=== PATIENT | female | born 1940 | race Hispanic/Latino ===

== ENCOUNTER 2021-04-19 14:57 | Inpatient (IN) | payer MEDICARE, SELFPAY ==
[2021-04-19] VITALS (16 sets, daily range): BP systolic 103–219; BP diastolic 57–110; PULSE 59–76; RESP 16–20; TEMP 36.1–36.8; O2SAT 98–99; BMI 28.4; BMI 26.8
--- NOTE | 2021-04-19 14:59 | RAD_ITS ---
STUDY: X-RAY CHEST REASON FOR EXAM: Female, 80 years old. Neuro deficit, acute, stroke suspected TECHNIQUE: Single AP portable view of the chest. COMPARISON: None. FINDINGS: The lungs are clear and expanded. There is no demonstrated pleural abnormality. Normal size heart. Normal mediastinum and glenn. Normal visualized pulmonary arteries. Normal visualized aortic arch and descending thoracic aorta. Normal visualized thoracic spine. Normal visualized ribs, clavicles, and shoulders. There is no demonstrated abnormality of the visualized soft tissue structures of the upper abdomen. RAD/Chest 1 View IMPRESSION: No evidence of acute cardiopulmonary process. Electronically Signed: Jesus Rivas DO at 18:24 EDT , Service support ,
--- NOTE | 2021-04-19 14:59 | CT_ITS ---
We are attempting to reach an attending provider to discuss findings. An addendum with communication details will be sent when the communication is complete. STUDY: CT HEAD STROKE PROTOCOL W/O CONTRAST INJECTION REASON FOR EXAM: Female, 80 years old. Neuro deficit, acute, stroke suspected RADIATION DOSAGE (If Supplied By Facility): CTDIvol = ( ) mGy, DLP = ( ) mGycm TECHNIQUE: Transaxial CT imaging of the brain was performed without administration of intravenous contrast material. Individualized dose optimization techniques were used for this CT. COMPARISON: No relevant priors. FINDINGS: The ventricular system and cerebral sulci are within normal limits. There is no dense MCA sign. There is minimal calcification in the left basal ganglia. There is no evidence of subdural, epidural or intraparenchymal is[place] hemorrhage noted. The skull base and cranial vault are intact. But if clinically stroke is suspected I do recommend diffusion MRI for further assessment CT/STROKE Brain/Head without Cont IMPRESSION: Negative unenhanced CT scan of the brain. If stroke is suspected diffusion MRI is needed. Electronically Signed: Kate Baltazar, at 15:18 EDT Tel , Service support ,
--- NOTE | 2021-04-19 14:59 | EKG12_ITS ---
Test Reason : STROKE Blood Pressure : / mmHG Vent. Rate : 066 BPM Atrial Rate : 066 BPM P-R Int : 194 ms QRS Dur : 086 ms QT Int : 448 ms P-R-T Axes : 052 -06 111 degrees QTc Int : 469 ms Normal sinus rhythm Left ventricular hypertrophy with repolarization abnormality Abnormal ECG Confirmed by BERNARD HELMS, RAKESH ([id number]), proposal editor DAINA VASQUEZ ([id number]) on 04/21/2021 12:46:26 PM Referred By: CHANDLER Confirmed By:RAKESH WAGNER MD
--- NOTE | 2021-04-19 15:00 | CT_ITS ---
We are attempting to reach an attending provider to discuss findings. An addendum with communication details will be sent when the communication is complete. STUDY: CTA HEAD AND NECK WITH CONTRAST REASON FOR EXAM: Female, 80 years old. Neuro deficit, acute, stroke suspected RADIATION DOSAGE (If Supplied By Facility): CTDIvol = ( 22.14 ) mGy, DLP = ( 664.54 ) mGycm TECHNIQUE: CT angiography was performed with a multi-detector CT scanner. Data acquisition was obtained from the skull base through the vertex following intravenous administration of IV 100mL [id number]-[id number]. MIP images were reconstructed from the axial data set. Post-processing of the angiographic images was performed, with multiplanar reformation and 3D reconstruction. Individualized dose optimization techniques were used for this CT. COMPARISON: No relevant priors. FINDINGS: Normal bilateral petrous carotid arteries. Normal right cavernous carotid artery with a normal supraclinoid bifurcation. Normal left cavernous carotid artery with a normal supraclinoid bifurcation. Normal right A1 segments of the anterior cerebral artery. Normal left A1 segments of the anterior cerebral artery. Normal intact anterior communicating artery (ACOM). Normal bilateral A2 segments of the anterior cerebral arteries. Normal right M1 and M2 segments of the middle cerebral arteries, with a normal M1 bifurcation. Normal left M1 and M2 segments of the middle cerebral arteries, with a normal M1 bifurcation. Normal right posterior communicating artery (PCOM). Normal left posterior communicating artery (PCOM). Normal bilateral vertebral arteries. Normal basilar artery with a normal basilar bifurcation. The visualized bilateral superior cerebellar (SCA) arteries are normal. Normal bilateral P1, P2 and visualized P3 segments of the posterior cerebral arteries. There is no demonstrated aneurysm of the false pass of [place]. There is no demonstrated abnormality of the visualized brain. AORTIC ARCH: Normal visualized aortic arch. Normal origins of the brachiocephalic, left common carotid, and left subclavian arteries. RIGHT CAROTID ARTERIES: Normal right common carotid artery (CCA). Normal right common carotid bulb. Normal origin of the right internal carotid (ICA) artery without a hemodynamically significant stenosis. Normal visualized cervical portion of the right internal carotid artery. Normal origin of the right external carotid artery (ECA). LEFT CAROTID ARTERIES: Normal left common carotid artery (CCA). Normal left common carotid bulb. Normal origin of the left internal carotid (ICA) artery without a hemodynamically significant stenosis. Normal visualized cervical portion of the left internal carotid artery. Normal origin of the left external carotid artery (ECA). VERTEBRAL ARTERIES: Normal bilateral vertebral arteries. CT/STROKE CTA Head AND Neck W/Con IMPRESSION: Normal CTA Head and neck with contrast. Electronically Signed: Kate Baltazar, at 15:27 EDT Tel , Service support ,
--- NOTE | 2021-04-19 15:01 | ED.VIS.STROK ---
HPI History of Present Illness Chief Complaint: Neuro S/Sx Detail of Chief Complaint: Slurred speech Informant: patient and family Narrative Narrative: Patient presents to the emergency department after EMS was contacted by the patient's daughter. Patient was last known well yesterday evening around 9:30 PM. Patient has unintelligible words. She cannot tell me when her symptom onset was. Patient recently moved to the area from [place]. Patient has history of diabetes and hypertension. She denies significant headache. She denies falls. Per family member she is not on blood thinners. Prior similar symptoms: No PFSH PFSH Social History Smoking Status: Unknown if ever smoked ROS ROS ED Constitutional Constitutional ED: Reports systems reviewed and no addt'l complaints, except as documented; Denies body ache(s), change in weight or chills Eyes Eyes: Denies acute decrease in peripheral vision, change in vision, double vision or loss of vision ENT ENT ED: Reports none; Denies ear pain, lip swelling, loss taste/smell, neck pain, otalgia or sore throat Cardiovascular Cardiovascular: Reports none; Denies abdominal pain, chest pain with activity, leg edema, lightheadedness, palpitations, rapid heart rate or syncope Respiratory/Chest Respiratory/Chest: Reports none; Denies change in mental status, dry cough, dyspnea, hemoptysis, shortness of breath at rest or shortness of breath with exertion Gastrointestinal Gastrointestinal: Reports none; Denies abdominal pain, change in stool character, diarrhea, hematemesis, hematochezia, melena, rectal bleeding or vomiting Genitourinary Genitourinary ED: Reports none; Denies abdominal discomfort, anuria, dysuria, genital pain or polyuria Musculoskeletal Musculoskeletal: Reports none; Denies arthralgias, back pain, difficulty walking, extremity pain, muscle weakness or myalgias Integumentary Reports none; Denies abscess or rash Neurologic Neurologic: Reports none and other Details: Slurred speech ; Denies abnormal gait, confusion, focal weakness, frequent falls, headache(s), loss of vision, numbness, paresthesias, radicular pain, vertigo or weakness Psychiatric Psychiatric: Reports systems reviewed and no addt'l complaints, except as documented and none; Denies behavioral changes, confusion, difficulty concentrating, hallucinations, suicidal ideation, tactile hallucinations or visual hallucinations Endocrine Endocrinology: Denies none, cold intolerance, excessive sweating, fatigue or heat intolerance Hematologic/Lymphatic Hematologic/Lymphatic: Reports none; Denies anemia, easy bleeding or easy bruising Allergic/Immunologic Allergic/Immunologic ED: Denies as per HPI, none, lip swelling, mouth swelling, throat swelling, tongue swelling or hives EXAM Physical Exam Const Vital Signs: 04/19/21 14:59 04/19/21 15:00 04/19/21 15:18 Temperature 98.2 F 98 F Temperature Source Oral Oral Pulse Rate 76 67 Respiratory Rate 19 H 20 H Blood Pressure 219/85 H 149/94 H Blood Pressure Mean 129 112 Pulse Ox 99 99 Oxygen Delivery Method Room Air Room Air Room Air 04/19/21 15:29 04/19/21 15:30 Temperature Temperature Source Pulse Rate 68 69 Respiratory Rate 18 20 H Blood Pressure 212/107 H 198/81 H Blood Pressure Mean 142 120 Pulse Ox 99 99 Oxygen Delivery Method Room Air Room Air Positive well nourished and well developed General Appearance ED: well developed and NAD HEENT Reports TM's clear and moist mucous membranes normocephalic and atraumatic; Negative for trauma or tenderness Tympanic Membrane ED: Yes TM's clear Eyes PERRL and EOMs intact bilaterally General Eye ED: Negative for pale conjunctiva or scleral icterus Neck no lymphadenopathy, supple and no JVD General: Negative for tenderness Chest Wall inspection of chest normal and palpation of chest normal Chest: Negative for tenderness Resp normal respiratory effort and clear to auscultation bilaterally Effort and Inspection: Negative for respiratory distress or pain with movement Auscultation: Negative for rhonchi, wheezes or diminished lung sounds Cardio regular rate, regular rhythm, S1 normal heart sound, S2 normal heart sound and no murmurs Peripheral Pulses: pulses 2+ throughout GI normal to inspection, nondistended, normoactive bowel sounds, soft to palpation, non-tender, non-distended and no masses Back/Spine no CVA tenderness and no thoracic nor lumbar tenderness Extremity normal to inspection General Extremety ED: Negative for edema General Extremity: Negative for edema Neuro oriented x3, CN's II-XII intact bilaterally, no sensory deficits noted and gait normal Neuro Narrative: Patient has an NIH stroke scale of 5 as she has an expressive aphasia and dysarthria. No facial droop or focal weakness otherwise noted. Sensorium / Orientation: awake, alert, oriented to person, oriented to place and oriented to time Motor Exam: strength 5/5 throughout and strength abnormal Psych mental status grossly normal Skin no rashes or lesions noted and no wounds STROKE Vital Signs/Narrative: Vital Signs Temp Pulse Resp BP Pulse Ox 04/19/21 15:30 69 20 H 198/81 H 99 04/19/21 15:29 68 18 212/107 H 99 04/19/21 15:18 98 F 67 20 H 149/94 H 99 04/19/21 15:00 98.2 F 76 19 H 219/85 H 99 MDM MDM MDM Narrative Medical decision making narrative: Patient symptom onset unclear therefore after discussion with neurologist it was felt patient was not a TPA candidate. Patient continues to have some dysarthria and expressive aphasia however at times seems to be improving. Case discussed with hospitalist will evaluate patient for admission. Lab Data Attestation: I reviewed the patient's lab results. Labs: Laboratory Results - last 24 hr 04/19/21 04/19/21 04/19/21 15:10 15:10 15:10 WBC 7.1 RBC 4.48 Hgb 12.8 Hct 40.1 MCV 89.5 MCH 28.6 MCHC 31.9 L RDW Std Deviation 41.1 RDW Coeff of Col[place] 12.6 Plt Count 220 MPV 12.5 H Immature Gran % (Auto) 0.300 Neut % (Auto) 58.8 Lymph % (Auto) 29.5 [place]cock % (Auto) 8.5 Eos % (Auto) 2.5 Baso % (Auto) 0.4 Absolute Neuts (auto) 4.2 Absolute Lymphs (auto) 2.09 Nucleated RBC % 0 PT 12.3 INR 1.0 APTT 21.9 L Sodium 136 Potassium 4.1 Chloride 102 Carbon Dioxide 29.0 Anion Gap 5 BUN 16 Creatinine 1.55 H Estim Creat Clear Calc 25.00 Est GFR (MDRD) Af Amer 41 L Est GFR (MDRD) Non-Af 34 L BUN/Creatinine Ratio 10.3 Glucose 228 H Calcium 9.1 Troponin I High Sens 47.6 Radiography Diagnostic Testing: Radiology Impression Brain CT 04/19/21 14:59 IMPRESSION: Negative unenhanced CT scan of the brain. If stroke is suspected diffusion MRI is needed. Electronically Signed: Kate Baltazar, at 15:18 EDT Tel , Service support , ADDENDUM: 04/19/21 1537 IMPRESSION: Negative unenhanced CT scan of the brain. If stroke is suspected diffusion MRI is needed. N.B. : The above Results were Read Back by Kate Baltazar to Tip Lang MD, and understanding confirmed on 04/19/2021 15:30:38 (ET). Electronically Signed: Bacilioangelia Delaney, at 15:18 EDT Tel , Service support , Head/Neck CTA 04/19/21 15:00 IMPRESSION: Normal CTA Head and neck with contrast. Electronically Signed: Kate Baltazar, at 15:27 EDT Tel , Service support , EKG Initial EKG: Attestation: I personally reviewed and interpreted this EKG as follows: Comments: Sinus rhythm with a ventricular rate of 66 bpm with some LVH and early repole noted. Stroke Documentation Questions Stroke Team Activated: Yes Reviewed Inclusion/Exclusion criteria: Yes Was Patient considered for Endovascular Intervention?: Yes IV Alteplase (t-PA) Administered: No No contraindications for IV Alteplase (t-PA) administration.: No Alteplase (t-PA) risks, benefits, alternative discussed: Yes Discharge Plan Dx/Rx/DC Orders Clinical Impression: Acute CVA (cerebrovascular accident), Hypertension Disposition Disposition: Acute Care Hospital [facility]
--- NOTE | 2021-04-19 15:07 | NURSING ---
NO OLD EKGS
[2021-04-19 15:17] LABS: Absolute Lymphocyte Count 2.09 X10^3/uL (0.83-4.51); Absolute Neutrophil Count 4.2 X10^3/uL (2.0-7.7); Basophil# 0.03 X10^3/uL; Basophil% 0.4 % (0-1); Eosinophil# 0.18 X10^3/uL; Eosinophils% 2.5 % (0-5); Hematocrit 40.1 % (37-47); Hemoglobin 12.8 g/dL (12.0-15.0); Lymphocyte # 2.09 X10^3/ul (0.83-4.51); Lymphocyte % 29.5 % (19-41); Mean Corp Hgb Conc 31.9 g/dL (32-36); Mean Corpuscular Hgb 28.6 pg (27.0-32.0); Mean Corpuscular Volume 89.5 fL (81-99); Mean Platelet Vol. 12.5 fl (6.2-12.0); Monocyte% 8.5 % (0-10); NRBC Flagged by Analyzer 0 % (0-5); Neutrophil # 4.16 X10^3/uL (2.7-7.7); Neutrophil % 58.8 % (47-70); Platelet Count 220 K/mm3 (150-450); RBC Distribution Width CV 12.6 % (11.6-14.6); RBC Distribution Width SD 41.1 fl (35.1-43.9); Red Blood Count 4.48 M/mm3 (4.2-5.4); White Blood Count 7.1 K/mm3 (4.4-11.0)
[2021-04-19 15:25] LABS: Prothrombin Time (Protime)PT. 12.3 SECONDS (11.7-14.9)
[2021-04-19 15:26] LABS: Partial Thromboplast Time 21.9 Seconds (24.1-36.2)
[2021-04-19 15:36] LABS: Anion Gap 5 (5-15); BUN 16 mg/dL (7-18); BUN/Creat Ratio 10.3 RATIO (10-20); Calcium,Total 9.1 mg/dL (8.5-10.1); Chloride 102 mmol/L (98-107); Creatinine, Serum 1.55 mg/dL (0.55-1.02); EST Glomerular Filtration Rate 34 mL/min (>60); Est Glom Filt Rate - Afr Amer 41 mL/min (>60); Glucose 228 mg/dL (74-106); Potassium 4.1 mmol/L (3.5-5.1); Sodium Level 136 mmol/L (136-145); Troponin-I HS 47.6 pg/mL (3.0-53.7)
--- NOTE | 2021-04-19 15:50 | NURSING ---
DR VAN FOR DR BECKER
--- NOTE | 2021-04-19 16:04 | NURSING ---
RM 112
--- NOTE | 2021-04-19 16:13 | CM.ED ---
SW Note Referral Source: Case Find Referral Reason: Stroke Alert SW met with patients grandson and daughter. Patient's grandson was present when patient initially presented to Emergency Department and patient's daughter presented shortly thereafter. Patient's daughter was able to provide timeline in that she talked to patient the night before at 9:22 and patient was going to make her supper. Patient's daughter said that her brother called her, at work, and said that he had talked to patient and that she was difficult to understand. Patient's daughter said that she was at work and told her boss who immediately stated that she could leave work. Patient's daughter said that she had talked to her this afternoon and patient's speech was garbled. Patient has no Primary Care Physican as they moved to [place] recently. SW provided emotional support. SW spoke to patient's grandson and he said that patient is doing better and beinging admitted. He reports no needs at this time. SW remains available if needs arise. Plan: Admit Irina KLEIN
--- NOTE | 2021-04-19 16:22 | PCM.HP.STD ---
Documented by User: Fatoumata Montalvo NP, SOC ANALYST-C 04/19/21 16:35 HPI - General General Date of Admission: 04/19/21 Date of Service: 04/19/21 Chief Complaint: Speech changes. HPI Narrative TELMA OLMOS, is a 80 F who presents to the emergency room due to speech changes. Patient's daughter at bedside states she spoke with patient last evening and did not notice anything atypical. Patient states her son called her earlier today and she was not able to understand him and noticed speech difficulty. She denies facial droop, vision changes, unilateral weakness/numbness/tingling. Denies other neuro symptoms or focal deficits. States she continues to have intermittent difficulty finding her words however her speech is improved from prior. She reports a past medical history of hypertension, type 2 diabetes mellitus, GERD. [facility] Home Medications metoprolol tartrate 25 mg PO BID 04/19/21 [History Last Taken 04/19/21] pantoprazole 40 mg PO DAILY 04/19/21 [History Last Taken 04/19/21] Allergy/AdvReac Type Severity Reaction Status Date / Time Penicillins Allergy Anaphylaxis Verified 04/19/21 16:00 Family History (Updated 04/19/21 @ 16:24 by Fatoumata Montalvo NP, SOC ANALYST-C) Mother Pancreatic cancer CAD (coronary artery disease) Father Cancer Lung cancer Surgical History (Updated 04/19/21 @ 16:27 by Fatoumata Montalvo NP, SOC ANALYST-C) H/O hemorrhoidectomy H/O rhinoplasty History of appendectomy History of bladder surgery History of cataract surgery Social History (Updated 04/19/21 @ 16:28 by Fatoumata Montalvo NP, SOC ANALYST-C) Smoking Status: Former smoker alcohol intake: never substance use type: does not use ROS Constitutional Constitutional: Denies change in weight, chills, fatigue, fever(s) or weakness Cardiovascular Cardiovascular: Denies chest pain, edema, lightheadedness, palpitations or syncope Respiratory/Chest Respiratory/Chest: Denies cough, dyspnea, productive cough, shortness of breath at rest, shortness of breath with exertion or wheezing Gastrointestinal Gastrointestinal: Denies abdominal pain, constipation, diarrhea, nausea or vomiting Genitourinary Genitourinary: Denies burning urination, difficulty urinating, dysuria, hematuria, urinary frequency, urinary incontinence or urinary urgency Musculoskeletal Musculoskeletal: Denies back pain, joint pain or muscle weakness Integumentary Integumentary: Denies erythema, lesions, rash or wounds Neurologic Neurologic: Reports abnormal speech; Denies confusion, dizziness, focal weakness, numbness, paresthesias, seizure-like activity or syncope Psychiatric Psychiatric: Denies anxiety or depression Hematologic/Lymphatic Hematologic/Lymphatic: Denies anemia, easy bleeding or easy bruising Allergic/Immunologic Allergic/Immunologic: Denies hives or asthma Vital Signs Vital Signs Vital Signs: 04/19/21 14:59 04/19/21 15:00 04/19/21 15:18 Temperature 98.2 F 98 F Temperature Source Oral Oral Pulse Rate 76 67 Respiratory Rate 19 H 20 H Blood Pressure 219/85 H 149/94 H Blood Pressure Mean 129 112 Pulse Ox 99 99 Oxygen Delivery Method Room Air Room Air Room Air 04/19/21 15:29 04/19/21 15:30 Temperature Temperature Source Pulse Rate 68 69 Respiratory Rate 18 20 H Blood Pressure 212/107 H 198/81 H Blood Pressure Mean 142 120 Pulse Ox 99 99 Oxygen Delivery Method Room Air Room Air Weight Weight: 165 lb 12.602 oz Body Mass Index (BMI) 28.4 Physical Exam Const alert, oriented x3 and no apparent distress Orientation / Consciousness: awake, oriented to person, oriented to place and oriented to time HEENT normocephalic and moist oral mucous membranes Eyes PERRL, EOMs intact bilaterally and conjunctivae normal Neck no lymphadenopathy Resp normal respiratory effort and clear to auscultation bilaterally Cardio regular rate, regular rhythm and no murmurs Peripheral Pulses: pulses 2+ throughout GI normal to inspection, nondistended, normoactive bowel sounds, non-tender and non-distended Extremity normal to inspection Skin no rashes or lesions noted Lesions: no lesions Rashes: no rashes Trauma: no lacerations or abrasions Neuro CN's II-XII intact bilaterally, no focal motor deficits, no sensory deficits noted and deep tendon reflexes 2+ bilaterally Neuro Narrative: Intermittent word finding difficulty. No focal motor deficits. Psych mental status grossly normal and affect normal Results Lab / Micro Data Result Diagrams: 04/19/21 15:10 04/19/21 15:10 Labs: Laboratory Results - last 24 hr 04/19/21 04/19/21 04/19/21 15:10 15:10 15:10 WBC 7.1 RBC 4.48 Hgb 12.8 Hct 40.1 MCV 89.5 MCH 28.6 MCHC 31.9 L RDW Std Deviation 41.1 RDW Coeff of Colton 12.6 Plt Count 220 MPV 12.5 H Immature Gran % (Auto) 0.300 Neut % (Auto) 58.8 Lymph % (Auto) 29.5 [place] % (Auto) 8.5 Eos % (Auto) 2.5 Baso % (Auto) 0.4 Absolute Neuts (auto) 4.2 Absolute Lymphs (auto) 2.09 Nucleated RBC % 0 PT 12.3 INR 1.0 APTT 21.9 L Sodium 136 Potassium 4.1 Chloride 102 Carbon Dioxide 29.0 Anion Gap 5 BUN 16 Creatinine 1.55 H Estim Creat Clear Calc 25.00 Est GFR (MDRD) Af Amer 41 L Est GFR (MDRD) Non-Af 34 L BUN/Creatinine Ratio 10.3 Glucose 228 H Calcium 9.1 Troponin I High Sens 47.[address] 04/19/21 14:59 IMPRESSION: Negative unenhanced CT scan of the brain. If stroke is suspected diffusion MRI is needed. Electronically Signed: Kate Baltazar, at 15:18 EDT Tel , Service support , ADDENDUM: 04/19/21 1537 IMPRESSION: Negative unenhanced CT scan of the brain. If stroke is suspected diffusion MRI is needed. N.B. : The above Results were Read Back by Kate Baltazar to Tip Lang MD, and understanding confirmed on 04/19/2021 15:30:38 (ET). Electronically Signed: Kate Baltazar, at 15:18 EDT Tel , Service support , Head/Neck CTA 04/19/21 15:00 IMPRESSION: Normal CTA Head and neck with contrast. Electronically Signed: Kate Baltazar, at 15:27 EDT Tel , Service support , ADDENDUM: 04/19/21 6763 IMPRESSION: Normal CTA Head and neck with contrast. N.B. : The above Results were Read Back by Kate Baltazar to Tip Lang MD, and understanding confirmed on 04/19/2021 16:13:06 (ET). Electronically Signed: Kate Baltazar, at 15:27 EDT Tel , Service support , Assessment & Plan Assessment/Plan (1) Hypertension: (2) Diabetes mellitus, type 2: (3) Acute CVA (cerebrovascular accident): PLAN: 1. Suspected acute CVA-brain CT negative. CTA of head and neck normal. Obtain MRI of brain. Obtain echo. PT/OT/ST. Lipid profile in a.m. Aspirin, statin. Monitor telemetry. 2. Hypertensive urgency-permissive secondary to #1. Will continue home metoprolol regimen. As needed hydralazine. 3. Type 2 diabetes mellitus-states she was previously on Metformin, no longer taking. Accu-Cheks with sliding scale insulin. Check hemoglobin A1c. 4. GERD-continue PPI. DVT prophylaxis-heparin subcu CODE STATUS: Full code This patient was seen by Fatoumata Montalvo NP-C under the supervision of Dr. Fields. Documented by User: Dr. Yajaira Fields MD 04/19/21 16:47 HPI - General General Date of Admission: 04/19/21 [facility] Home Medications metoprolol tartrate 25 mg PO BID 04/19/21 [History Last Taken 04/19/21] pantoprazole 40 mg PO DAILY 04/19/21 [History Last Taken 04/19/21] Allergy/AdvReac Type Severity Reaction Status Date / Time Penicillins Allergy Anaphylaxis Verified 04/19/21 16:00 Family History (Updated 04/19/21 @ 16:24 by Fatoumata Montalvo SOC ANALYST, SOC ANALYST-C) Mother Pancreatic cancer CAD (coronary artery disease) Father Cancer Lung cancer Surgical History (Updated 04/19/21 @ 16:27 by Fatoumata Montalvo NP, SOC ANALYST-C) H/O hemorrhoidectomy H/O rhinoplasty History of appendectomy History of bladder surgery History of cataract surgery Social History (Updated 04/19/21 @ 16:28 by Fatoumata Montalvo NP, SOC ANALYST-C) Smoking Status: Former smoker alcohol intake: never substance use type: does not use Results Lab / Micro Data Result Diagrams: 04/19/21 15:10 04/19/21 15:10 Charges/Coding Addendum Addendum: Hospitalist note: I am seeing this patient in conjunction with Fatoumata Montalvo. I independently seen and examined the patient. History and physical, laboratory data and imaging studies reviewed and I concur with the above admission and work-up plan. Patient presented to the emergency room because of slurred speech and difficulty getting the words out, unknown exact time of onset and she denied any other neurological symptoms. Patient's daughter mentioned that she spoke with her mother last night and she was doing okay. This morning, her son called her and did notes that his speech is abnormal and was slurred. Currently, patient still having slurred speech and difficulty getting words out. She denied focal arm or leg weakness. She denied blurred vision, syncope or presyncope. She reported mild headache on the left side of her brain. In the emergency department, her blood pressure was elevated, other vital signs were stable. [facility] teleneurology consulted and patient was not a candidate for TPA. Routine blood work was remarkable for creatinine of 1.55, otherwise normal. CT scan brain showed no acute infarct or hemorrhage. CTA of the head and neck showed no significant vascular stenosis or narrowing. EKG revealed normal sinus rhythm, no acute ischemic changes. Patient is being admitted for hypertensive emergency and probable stroke. - Physical Exam General: Alert, Oriented x3, Cooperative, dysarthria, slurred speech.. HEENT: Atraumatic, PERRLA, EOMI. Neck: Supple, No JVD, Negative Carotid Bruits, Trachea Midline, Thyroid Normal. Lungs: Clear to auscultation, Normal air movement, No rhonchi, No wheeze, No rales. Cardiovascular: Regular rate, Regular Rhythm, Normal S1, Normal S2, PMI Normal. Abdomen: Bowel Sounds Present, Soft, Non Tender, Non-Distended, No Hepato-splenomegaly. Extremities: No clubbing, No cyanosis, No edema Skin: No rashes, No breakdown Neurological: Cranial nerves are intact, normal power and tone of all limbs, dysarthria. Assessment and plan: #1 suspected acute CVA: CT brain and CTA head and neck reviewed. EKG revealed normal sinus rhythm, no acute changes. Apart from dysarthria, no other focal deficits. Blood pressures elevated. Plan: Admit to PCU, cardiac monitoring, NIH stroke scale, MRI brain, 2D echocardiogram, start aspirin Lipitor, lipid profile, hemoglobin A1c, TSH, PT OT evaluation and treatment, speech therapy. #2 hypertensive urgency, so far, no acute endorgan damage, stroke is suspected. Plan: Continue metoprolol, start IV dosing as needed, will allow permissive hypertension because of suspected stroke. #3 renal insufficiency: Unknown baseline creatinine, admission creatinine is 1.55, plan for IV fluids, repeat BMP tomorrow morning. #4 other chronic medical problems: Stable, continue current medications as above. This note was generated with [employer] dictation software. It may contain incorrect words, spelling, and punctuation that were not noted in checking the note before signing. Visit Charges Inpatient E&M: 00174 Init Hosp L3
--- NOTE | 2021-04-19 17:23 | MRI_ITS ---
STUDY: MRI BRAIN WITHOUT CONTRAST REASON FOR EXAM: Female, 80 years old. Dysarthria, slurred speech TECHNIQUE: Standardized multiplanar fat and water weighted pulse sequences were obtained. COMPARISON: 04/19/2021 CT head FINDINGS: Normal size of the ventricles and extra-axial spaces for the patient''s age. Minimal left white matter microvascular ischemic changes within the subinsular region. There is no evidence for recent intracranial ischemia or other cause of cytotoxic edema on diffusion weighted imaging (DWI). Normal T2* images of the brain without demonstrated susceptibility artifact. There is no demonstrated hemosiderin stain. Normal bilateral basal ganglia. Normal thalami. There is no extra-axial fluid accumulation. Normal flow voids within the major intracranial circulation suggesting patency by spin echo criteria. Normal sella turcica, pituitary gland, infundibular stalk, optic chiasm and hypothalamus. Normal tectal plate and pineal gland. Normal midbrain, teresa and medulla. Normal cerebellum. Normal basal cisterns. Normal bilateral temporal bones. Normal bilateral internal auditory canals. No demonstrated orbital abnormality, within the constraints of a routine brain study. Normal visualized paranasal sinuses. Normal calvarium and skull base. Normal visualized soft tissue structures. Normal visualized upper cervical spine. MRI/Brain without Contrast IMPRESSION: No evidence of acute intracranial bleed, mass or ischemia. Electronically Signed: Jesus Rivas DO at 23:00 EDT , Service support ,
--- NOTE | 2021-04-19 17:23 | ECHOD_ITS ---
Reason For Study: TIA/CVA Procedure This was a 2D Doppler, Color Flow transthoracic echocardiogram. Exam performed portable in patient room. Left Ventricle Normal left ventricle. The estimated ejection fraction is EF 55-60% %. Right Ventricle Normal right ventricle. Normal systolic function. Atria Normal left atrium. Immobile mass of the right atrium. Mitral Valve There is mild to moderate mitral annular calcification. No mitral valve insufficiency. Tricuspid Valve Normal tricuspid valve. Mild tricuspid valve insufficiency. Aortic Valve Normal aortic valve. Pulmonic Valve The pulmonic valve is not well visualized. Great Vessels Normal aortic root. Pericardium/Pleural No pericardial effusion. Medication Performed a rapid injection of agitated mix of 9 cc saline and 1cc air to assess for atrial septal defect. MMode/2D Measurements & Calculations LVIDd: 4.9 cm IVSd: 1.1 cm Ao root diam: 2.9 cm LVIDs: 3.1 cm LVPWd: 1.0 cm RVDd: 3.2 cm FS: 36.5 % LAV(MOD-bp): 56.9 ml LVAd ap4: 24.6 cm2 SV(MOD-sp4): 52.8 ml LAV(MOD-bp) Indexed: 32.3 ml/m2 LVLd ap4: 6.8 cm LAV(MOD-sp2): 66.2 ml EDV(MOD-sp4): 75.9 ml LAV(MOD-sp4): 48.2 ml EDV(sp4-el): 76.3 ml LVAs ap4: 13.0 cm2 LVLs ap4: 6.0 cm ESV(MOD-sp4): 23.1 ml ESV(sp4-el): 23.6 ml EF(MOD-sp4): 69.6 % EF(sp4-el): 69.0 % SV(sp4-el): 52.6 ml LA A4 area: 18.5 cm2 LA dimension(2D): 3.3 cm RA A4 area: 15.7 cm2 Time Measurements MV dec time: 0.22 sec Doppler Measurements & Calculations MV E max wilmar: 84.6 cm/sec Lat Peak E' Wilmar: 8.5 cm/sec Med Peak E' Wilmar: 5.7 cm/sec MV A max wilmar: 58.6 cm/sec E/E' lat: 9.9 E/E' med: 14.8 MV E/A: 1.4 Ao V2 max: 133.0 cm/sec LV V1 max: 116.9 cm/sec PA V2 max: 85.9 cm/sec Ao max P.1 mmHg LV V1 max P.5 mmHg TR max wilmar: 325.8 cm/sec TR max P.5 mmHg ECHO/Echo Complete Interpretation Summary The estimated ejection fraction is EF 55-60% Moderate size RA mass mild TR Recommendation; Evaluate with JOSE Ordering Physician: Yajaira Fields Performed By: Radha Ruiz RDCS
[2021-04-19] MEDS: 0.9% Saline Lock 10 ML Syringe IV (17:47)
[2021-04-19] MEDS: 0.9% Normal Saline 1,000 ML 75 ML IV (17:47)
[2021-04-19 18:05] LABS: Cholesterol 238 mg/dL (200); High Density Lipoprotein 45 mg/dL; Thyroid Stim Hormone (TSH) 2.82 uIU/mL (0.358-3.74); Triglycerides 336 mg/dL; Very Low Density Lipoprotein 67 mg/dL (5-40)
[2021-04-19 18:05] LABS: Bedside Glucose 152 mg/dL (70-110)
[2021-04-19 18:35] LABS: Hemoglobin A1c 7.4 % (3.8-5.6)
[2021-04-19] MEDS: Heparin Injection (Vial) 5,000 UNIT/ML VIAL 5000 UNIT SC (21:18)
[2021-04-19] MEDS: Atorvastatin Calcium 80 MG Tablet PO (21:18)
[2021-04-19] MEDS: Metoprolol Tartrate 25 MG Tablet PO (21:18)
[2021-04-19 23:31] LABS: Bedside Glucose 161 mg/dL (70-110)
[2021-04-20] VITALS (15 sets, daily range): BP systolic 145–180; BP diastolic 54–75; PULSE 52–70; RESP 16–18; TEMP 36–36.8; O2SAT 96–98
[2021-04-20] MEDS: 0.9% Normal Saline 1,000 ML 75 ML IV (05:24)
[2021-04-20] MEDS: Heparin Injection (Vial) 5,000 UNIT/ML VIAL 5000 UNIT SC ×3 (05:24→21:23)
[2021-04-20 05:36] LABS: Bedside Glucose 162 mg/dL (70-110)
[2021-04-20 07:03] LABS: Absolute Lymphocyte Count 1.91 X10^3/uL (0.83-4.51); Absolute Neutrophil Count 3.2 X10^3/uL (2.0-7.7); Basophil# 0.02 X10^3/uL; Basophil% 0.3 % (0-1); Eosinophil# 0.18 X10^3/uL; Eosinophils% 3.1 % (0-5); Hemoglobin 11.4 g/dL (12.0-15.0); Lymphocyte # 1.91 X10^3/ul (0.83-4.51); Lymphocyte % 32.6 % (19-41); Mean Corp Hgb Conc 31.7 g/dL (32-36); Mean Corpuscular Hgb 28.8 pg (27.0-32.0); Mean Corpuscular Volume 90.9 fL (81-99); Mean Platelet Vol. 12.8 fl (6.2-12.0); Monocyte# 0.57 X10^3/uL; Monocyte% 9.7 % (0-10); NRBC Flagged by Analyzer 0 % (0-5); Neutrophil # 3.15 X10^3/uL (2.7-7.7); Platelet Count 195 K/mm3 (150-450); RBC Distribution Width CV 12.4 % (11.6-14.6); RBC Distribution Width SD 41.3 fl (35.1-43.9); Red Blood Count 3.96 M/mm3 (4.2-5.4); White Blood Count 5.9 K/mm3 (4.4-11.0)
[2021-04-20 07:34] LABS: Anion Gap 5 (5-15); BUN 16 mg/dL (7-18); Calcium,Total 8.8 mg/dL (8.5-10.1); Chloride 108 mmol/L (98-107); EST Glomerular Filtration Rate 73 mL/min (>60); Est Glom Filt Rate - Afr Amer 88 mL/min (>60); Estimated Creatinine Clearance 48.43 ml/min; Glucose 161 mg/dL (74-106); Sodium Level 138 mmol/L (136-145)
--- NOTE | 2021-04-20 09:08 | TELEMED_ITS ---
SOC Telemed has confirmed receipt of a request for visit. This document confirms receipt of the order initiating the consult. To find the results of the consultation, please view the patient's reports for the scanned Telemed Consult.
[2021-04-20] MEDS: Aspirin 81 MG TAB.CHEW PO (10:04)
[2021-04-20] MEDS: Metoprolol Tartrate 25 MG Tablet PO ×2 (10:05→21:22)
[2021-04-20] MEDS: Pantoprazole Sodium 40 MG Tablet PO (10:05)
--- NOTE | 2021-04-20 10:37 | PCM.DC ---
Discharge Instructions Diet Discharge Diet: No restrictions Activity Discharge Activity: Return to Normal Activity Follow Up Care Test Results: Test results from this visit will be discussed in further detail at your follow-up appointment, if applicable. Discharge Plan Admission Admit Date/Time: 04/19/21 15:58 Primary Reason for Your Visit: Slurred Speech Attending Provider: Alexandria Fall Primary Care Provider: Care Physician,No Primary Discharge Orders/Prescriptions Prescriptions: New atorvastatin 40 mg tablet 40 mg PO DAILY Qty: 30 RF: 0 aspirin 81 mg tablet,delayed release (DR/EC) 81 mg PO DAILY Qty: 30 RF: 0 Continued pantoprazole 40 mg Tablet,Delayed Release (Dr/Ec) 40 mg PO DAILY RF: 0 metoprolol tartrate 25 mg Tablet 25 mg PO BID RF: 0 Referrals / Follow Up: Zoe Reynolds MD [STAFF PHYSICIAN] - Within 2 Weeks Jatinder Khan MD [STAFF PHYSICIAN] - Within 2 Weeks (Follow up for outpatient EEG s/p TIA. ) Care Physician,No Primary [Primary Care Provider] - Within 2 Weeks Disposition Disposition (needs filled in before D/C Order can be placed): Home, Self Care
--- NOTE | 2021-04-20 11:53 | CASEMGMT ---
RN JUAQUIN VENDING SERVICE TECHNICIAN CM to room to meet with patient for initial transition planning/care coordination assessment. MAGNUS REZA introduced self and role at [facility]. Pt voices understanding and consents to assessment at this time. Pt sitting up in chair in room in no distress at this time. Pt is A/O at this time and able to answer most questions, but states she does not know all of the answers and asked for RN JUAQUIN to contact her daughter, Sujata, who helps to manage many things for her. Call placed to Sujata at this time. Pt was living in [place] and just moved to [place] in Feb, 2021. Care providers, pharmacy, and demographics verified/updated at this time. PCP: Pt does not have local PCP. PCP in [place] was Dr Ramos, per daughter. Sujata made aware list of local PCP's can be provided and she voices appreciation. List given to pt. Specialists: Dtr states no specialists Preferred Pharmacy:[facility] in [place] Insurance: [facility]. Pt just applied for [place] [employer] and was issued a DUNCAN card 04/07/21. Per Zaira in registration, when she ran pt's DUNCAN #, it is coming back as ineligible. Sujata made aware and she states DUNCAN is not due to begin until 04/27/21. Prescription Benefit: None Living Will/HPOA: Per Sujata, pt has not completed these. She was made aware SW can assist w/these if pt would like to and SW contact info would be provided to pt. LNOK: Pt states she has 6 children. Dtr, Sujata, and grandson, Gerald, are listed on demographics. Living Arrangements: Lives alone in 1st floor apt. No steps to enter. Pt states she is independent w/ADL's and IADL's. Sujata confirms this as well. Transportation: Pt does not drive. Sujata or Gerald provide transportation. DME: States has the following DME: cane, shower chair. Pt does not have a glucometer. Pt states no need for further DME at this time. HHC/SNF: No history of either. Sujata made aware PT/OT evals are pending and she would be made aware if additional therapy is recommended. Discussed CCN w/Sujata. She states, I don't think that it's necessary. She was made aware, if in the future they are interested, that CCN rac card w/contact info would be placed w/pt's belongings for future reference. She voices appreciation. Pt/daughter both wish for pt to return home and states has no concerns with going home at time of discharge. CM to follow for any further discharge planning/needs. Pt/dtr voice no further concerns/needs at this time. PLAN: Home w/family support and discharge plans in place. PT/OT evals pending ST eval done and additional ST recommended @ pt's current level of care. CM to follow. Janina CHACONN RN CM
[2021-04-20 12:51] LABS: Bedside Glucose 166 mg/dL (70-110)
--- NOTE | 2021-04-20 13:09 | DS.PCM_ITS ---
Providers Date of Admission: 04/19/21 Primary Care Physician: No Primary Care Phys Reason For Visit: HYPERTENSIVE URGENCY, PROBABLE STROKE Diagnosis Discharge Diagnosis (1) Hypertension: Status: Chronic Code(s): I10 - Essential (primary) hypertension (2) Diabetes mellitus, type 2: Status: Acute Code(s): E11.9 - Type 2 diabetes mellitus without complications (3) Acute CVA (cerebrovascular accident): Status: Acute Code(s): I63.9 - Cerebral infarction, unspecified Medications at Discharge Home Medications metoprolol tartrate 25 mg PO BID 04/19/21 pantoprazole 40 mg PO DAILY 04/19/21 aspirin 81 mg PO DAILY #30 tab 04/20/21 atorvastatin 40 mg PO DAILY #30 tab 04/20/21 Hospital Course Summary of Care Provided Minutes Spent on Discharge: 35 Physical Exam Narrative Patient is an 80-year-old female comfortably resting in a chair, alert and oriented x3. Patient denies any headache, vision changes, numbness/tingling, weakness, chest pain, shortness of breath, palpitations, fever, chills, N/V/D. Const alert, oriented x3 and no apparent distress HEENT normocephalic, head/scalp atraumatic, hearing grossly normal bilaterally and avani st oral mucous membranes Eyes PERRL, EOMs intact bilaterally and conjunctivae normal Neck no lymphadenopathy, supple and no JVD Resp normal respiratory effort, no retractions, no use of accessory muscles and clear to auscultation bilaterally Cardio regular rate and regular rhythm GI normal to inspection, nondistended, normoactive bowel sounds, soft to palpation and non-tender Extremity normal to inspection, full ROM and no clubbing, cyanosis or edema Skin no rashes or lesions noted, no wounds and skin turgor normal Neuro CN's II-XII intact bilaterally Psych affect normal Weight / BMI Weight Weight: 156 lb 6.405 oz Body Mass Index (BMI) 26.8 ABG / Lab / Microbiology Data Result Diagrams: 04/20/21 06:15 04/20/21 06:15 Laboratory: Laboratory Results - last 24 hr 04/19/21 04/19/21 04/19/21 15:10 15:10 15:10 WBC 7.1 RBC 4.48 Hgb 12.8 Hct 40.1 MCV 89.5 MCH 28.6 MCHC 31.9 L RDW Std Deviation 41.1 RDW Coeff of [place] 12.6 Plt Count 220 MPV 12.5 H Immature Gran % (Auto) 0.300 Neut % (Auto) 58.8 Lymph % (Auto) 29.5 [place] % (Auto) 8.5 Eos % (Auto) 2.5 Baso % (Auto) 0.4 Absolute Neuts (auto) 4.2 Absolute Lymphs (auto) 2.09 Nucleated RBC % 0 PT 12.3 INR 1.0 APTT 21.9 L Sodium 136 Potassium 4.1 Chloride 102 Carbon Dioxide 29.0 Anion Gap 5 BUN 16 Creatinine 1.55 H Estim Creat Clear Calc 25.00 Est GFR (MDRD) Af Amer 41 L Est GFR (MDRD) Non-Af 34 L BUN/Creatinine Ratio 10.3 Glucose 228 H Hemoglobin A1c Calcium 9.1 Troponin I High Sens 47.6 Triglycerides Cholesterol LDL Cholesterol VLDL Cholesterol HDL Cholesterol TSH POC Glucose 04/19/21 04/19/21 04/19/21 15:10 15:10 17:56 WBC RBC Hgb Hct MCV MCH MCHC RDW Std Deviation RDW Coeff of [place] Plt Count MPV Immature Gran % (Auto) Neut % (Auto) Lymph % (Auto) [place] % (Auto) Eos % (Auto) Baso % (Auto) Absolute Neuts (auto) Absolute Lymphs (auto) Nucleated RBC % PT INR APTT Sodium Potassium Chloride Carbon Dioxide Anion Gap BUN Creatinine Estim Creat Clear Calc Est GFR (MDRD) Af Amer Est GFR (MDRD) Non-Af BUN/Creatinine Ratio Glucose Hemoglobin A1c 7.4 H Calcium Troponin I High Sens Triglycerides 336 H Cholesterol 238 H LDL Cholesterol 126 VLDL Cholesterol 67 H HDL Cholesterol 45 TSH 2.82 POC Glucose 152 H 04/19/21 04/20/21 04/20/21 23:25 05:26 06:15 WBC 5.9 RBC 3.96 L Hgb 11.4 L Hct 36.0 L MCV 90.9 MCH 28.8 MCHC 31.7 L RDW Std Deviation 41.3 RDW Coeff of [place] 12.4 Plt Count 195 MPV 12.8 H Immature Gran % (Auto) 0.300 Neut % (Auto) 54.0 Lymph % (Auto) 32.6 [place] % (Auto) 9.7 Eos % (Auto) 3.1 Baso % (Auto) 0.3 Absolute Neuts (auto) 3.2 Absolute Lymphs (auto) 1.91 Nucleated RBC % 0 PT INR APTT Sodium Potassium Chloride Carbon Dioxide Anion Gap BUN Creatinine Estim Creat Clear Calc Est GFR (MDRD) Af Amer Est GFR (MDRD) Non-Af BUN/Creatinine Ratio Glucose Hemoglobin A1c Calcium Troponin I High Sens Triglycerides Cholesterol LDL Cholesterol VLDL Cholesterol HDL Cholesterol TSH POC Glucose 161 H 162 H 04/20/21 04/20/21 06:15 12:02 WBC RBC Hgb Hct MCV MCH MCHC RDW Std Deviation RDW Coeff of [place] Plt Count MPV Immature Gran % (Auto) Neut % (Auto) Lymph % (Auto) [place] % (Auto) Eos % (Auto) Baso % (Auto) Absolute Neuts (auto) Absolute Lymphs (auto) Nucleated RBC % PT INR APTT Sodium 138 Potassium 4.0 Chloride 108 H Carbon Dioxide 25.0 Anion Gap 5 BUN 16 Creatinine 0.80 Estim Creat Clear Calc 48.43 Est GFR (MDRD) Af Amer 88 Est GFR (MDRD) Non-Af 73 BUN/Creatinine Ratio 20.0 Glucose 161 H Hemoglobin A1c Calcium 8.8 Troponin I High Sens Triglycerides Cholesterol LDL Cholesterol VLDL Cholesterol HDL Cholesterol TSH POC Glucose 166 H Radiography Diagnostic Testing: Radiology Impression Brain CT 04/19/21 14:59 IMPRESSION: Negative unenhanced CT scan of the brain. If stroke is suspected diffusion MRI is needed. Electronically Signed: Kate Baltazar, at 15:18 EDT Tel , Service support , ADDENDUM: 04/19/21 1537 IMPRESSION: Negative unenhanced CT scan of the brain. If stroke is suspected diffusion MRI is needed. N.B. : The above Results were Read Back by Kate Baltazar to Tip Lang MD, and understanding confirmed on 04/19/2021 15:30:38 (ET). Electronically Signed: Kate Baltazar, at 15:18 EDT Tel , Service support , Chest X-Ray 04/19/21 14:59 IMPRESSION: No evidence of acute cardiopulmonary process. Electronically Signed: Jesus DO Rob at 18:24 EDT , Service support , Head/Neck CTA 04/19/21 15:00 IMPRESSION: Normal CTA Head and neck with contrast. Electronically Signed: Kate Baltazar, at 15:27 EDT Tel , Service support , ADDENDUM: 04/19/21 1620 IMPRESSION: Normal CTA Head and neck with contrast. N.B. : The above Results were Read Back by Kate Baltazar to Tip Lang MD, and understanding confirmed on 04/19/2021 16:13:06 (ET). Electronically Signed: Bacilioangelia Stewartalicia, at 15:27 EDT Tel , Service support , Brain MRI 04/19/21 17:23 IMPRESSION: No evidence of acute intracranial bleed, mass or ischemia. Electronically Signed: Jesus DO Rob at 23:00 EDT , Service support , Echocardiogram 04/19/21 17:23 Interpretation Summary The estimated ejection fraction is EF 55-60% Moderate size RA mass mild TR Recommendation; Evaluate with JOSE ____ Ordering Physician: Yajaira Fields Performed By: Radha Ruiz, CR D/C Instructions Discharge Diet: No restrictions Discharge Plan Admission Admit Date/Time: 04/19/21 15:58 Primary Reason for Your Visit: Slurred Speech Attending Provider: Alexandria Fall Primary Care Provider: Care Physician,No Primary Discharge Orders/Prescriptions Prescriptions: New atorvastatin 40 mg tablet 40 mg PO DAILY Qty: 30 RF: 0 aspirin 81 mg tablet,delayed release (DR/EC) 81 mg PO DAILY Qty: 30 RF: 0 Continued pantoprazole 40 mg Tablet,Delayed Release (Dr/Ec) 40 mg PO DAILY RF: 0 metoprolol tartrate 25 mg Tablet 25 mg PO BID RF: 0 Referrals / Follow Up: Zoe Reynolds MD [STAFF PHYSICIAN] - Within 2 Weeks Jatinder Khan MD [STAFF PHYSICIAN] - Within 2 Weeks (Follow up for outpatient EEG s/p TIA. ) Care Physician,No Primary [Primary Care Provider] - Within 2 Weeks Disposition Disposition (needs filled in before D/C Order can be placed): Home, Self Care
--- NOTE | 2021-04-20 14:01 | ECHOTEE_ITS ---
Reason For Study: RA MASS Medication JOSE probe 6VT-D (SN [id number]) passed without difficulty. No complications were noted. Cetacaine Topical [place] given X3 orally. Versed 2 mg given slow IVP. Fentanyl 25 mcg given slow IVP. Performed a rapid injection of agitated mix of 9 cc saline and 1cc air to assess for atrial septal defect. ECHO/Echo Transesophageal (JOSE) Interpretation Summary Small to moderate size R.atrial mass/echogenic noted Not attached to TV. Sub valvular Aortic memberane Normal LV and RV systolic Function [place] study is Negative with No evidence of PFO Recommendation: To evaluate with cardiac MRI to better define the R.Atrial mass. Ordering Physician: Darien Elizabeth Referring Physician: NO PCP Performed By: Caitlin Chan, CR, RVT
--- NOTE | 2021-04-20 14:04 | PN.HOSP_ITS ---
Documented by User: Darien JONES 04/20/21 14:15 Subjective Subjective Patient is an 80-year-old female comfortably resting in bed, alert and oriented x3. Patient denies headache, weakness, chest pain, shortness of breath,vision changes, numbness/tingling, fever, chills, N/V/D. Objective Data Objective Data Vital Signs: Vital Signs Temp Pulse Resp BP Pulse Ox 96.8 F L 66 16 145/54 H 97 04/20/21 05:30 04/20/21 10:05 04/20/21 05:30 04/20/21 05:30 04/20/21 07:28 Oxygen Delivery Method Room Air Weight: 156 lb 6.405 oz Body Mass Index (BMI) 26.8 Intake & Output: Intake and Output for Last 24 Hours 04/18/21 04/19/21 04/20/21 23:59 23:59 23:59 Intake Total 851.25 / 851.25 551.25 / 551.25 Balance 851.25 / 851.25 551.25 / 551.25 Lab / Micro Data Result Diagrams: 04/20/21 06:15 04/20/21 06:15 Labs: Laboratory Results - last 24 hr 04/19/21 04/19/21 04/19/21 15:10 15:10 15:10 WBC 7.1 RBC 4.48 Hgb 12.8 Hct 40.1 MCV 89.5 MCH 28.6 MCHC 31.9 L RDW Std Deviation 41.1 RDW Coeff of [place] 12.6 Plt Count 220 MPV 12.5 H Immature Gran % (Auto) 0.300 Neut % (Auto) 58.8 Lymph % (Auto) 29.5 [place] % (Auto) 8.5 Eos % (Auto) 2.5 Baso % (Auto) 0.4 Absolute Neuts (auto) 4.2 Absolute Lymphs (auto) 2.09 Nucleated RBC % 0 PT 12.3 INR 1.0 APTT 21.9 L Sodium 136 Potassium 4.1 Chloride 102 Carbon Dioxide 29.0 Anion Gap 5 BUN 16 Creatinine 1.55 H Estim Creat Clear Calc 25.00 Est GFR (MDRD) Af Amer 41 L Est GFR (MDRD) Non-Af 34 L BUN/Creatinine Ratio 10.3 Glucose 228 H Hemoglobin A1c Calcium 9.1 Troponin I High Sens 47.6 Triglycerides Cholesterol LDL Cholesterol VLDL Cholesterol HDL Cholesterol TSH POC Glucose 04/19/21 04/19/21 04/19/21 15:10 15:10 17:56 WBC RBC Hgb Hct MCV MCH MCHC RDW Std Deviation RDW Coeff of [place] Plt Count MPV Immature Gran % (Auto) Neut % (Auto) Lymph % (Auto) [place] % (Auto) Eos % (Auto) Baso % (Auto) Absolute Neuts (auto) Absolute Lymphs (auto) Nucleated RBC % PT INR APTT Sodium Potassium Chloride Carbon Dioxide Anion Gap BUN Creatinine Estim Creat Clear Calc Est GFR (MDRD) Af Amer Est GFR (MDRD) Non-Af BUN/Creatinine Ratio Glucose Hemoglobin A1c 7.4 H Calcium Troponin I High Sens Triglycerides 336 H Cholesterol 238 H LDL Cholesterol 126 VLDL Cholesterol 67 H HDL Cholesterol 45 TSH 2.82 POC Glucose 152 H 04/19/21 04/20/21 04/20/21 23:25 05:26 06:15 WBC 5.9 RBC 3.96 L Hgb 11.4 L Hct 36.0 L MCV 90.9 MCH 28.8 MCHC 31.7 L RDW Std Deviation 41.3 RDW Coeff of [place] 12.4 Plt Count 195 MPV 12.8 H Immature Gran % (Auto) 0.300 Neut % (Auto) 54.0 Lymph % (Auto) 32.6 [place] % (Auto) 9.7 Eos % (Auto) 3.1 Baso % (Auto) 0.3 Absolute Neuts (auto) 3.2 Absolute Lymphs (auto) 1.91 Nucleated RBC % 0 PT INR APTT Sodium Potassium Chloride Carbon Dioxide Anion Gap BUN Creatinine Estim Creat Clear Calc Est GFR (MDRD) Af Amer Est GFR (MDRD) Non-Af BUN/Creatinine Ratio Glucose Hemoglobin A1c Calcium Troponin I High Sens Triglycerides Cholesterol LDL Cholesterol VLDL Cholesterol HDL Cholesterol TSH POC Glucose 161 H 162 H 04/20/21 04/20/21 06:15 12:02 WBC RBC Hgb Hct MCV MCH MCHC RDW Std Deviation RDW Coeff of [place] Plt Count MPV Immature Gran % (Auto) Neut % (Auto) Lymph % (Auto) [place] % (Auto) Eos % (Auto) Baso % (Auto) Absolute Neuts (auto) Absolute Lymphs (auto) Nucleated RBC % PT INR APTT Sodium 138 Potassium 4.0 Chloride 108 H Carbon Dioxide 25.0 Anion Gap 5 BUN 16 Creatinine 0.80 Estim Creat Clear Calc 48.43 Est GFR (MDRD) Af Amer 88 Est GFR (MDRD) Non-Af 73 BUN/Creatinine Ratio 20.0 Glucose 161 H Hemoglobin A1c Calcium 8.8 Troponin I High Sens Triglycerides Cholesterol LDL Cholesterol VLDL Cholesterol HDL Cholesterol TSH POC Glucose 166 H Radiography Diagnostic Testing: Radiology Impression Brain CT 04/19/21 14:59 IMPRESSION: Negative unenhanced CT scan of the brain. If stroke is suspected diffusion MRI is needed. Electronically Signed: Kate Baltazar, at 15:18 EDT Tel , Service support , ADDENDUM: 04/19/21 1537 IMPRESSION: Negative unenhanced CT scan of the brain. If stroke is suspected diffusion MRI is needed. N.B. : The above Results were Read Back by Kate Baltazar to Tip Lang MD, and understanding confirmed on 04/19/2021 15:30:38 (ET). Electronically Signed: Kate Baltazar, at 15:18 EDT Tel , Service support , Chest X-Ray 04/19/21 14:59 IMPRESSION: No evidence of acute cardiopulmonary process. Electronically Signed: Jesus Rivas DO at 18:24 EDT , Service support , Head/Neck CTA 04/19/21 15:00 IMPRESSION: Normal CTA Head and neck with contrast. Electronically Signed: Kate Baltazar, at 15:27 EDT Tel , Service support , ADDENDUM: 04/19/21 1620 IMPRESSION: Normal CTA Head and neck with contrast. N.B. : The above Results were Read Back by Kate Baltazar to Tip Lang MD, and understanding confirmed on 04/19/2021 16:13:06 (ET). Electronically Signed: Kate Baltazar, at 15:27 EDT Tel , Service support , Brain MRI 04/19/21 17:23 IMPRESSION: No evidence of acute intracranial bleed, mass or ischemia. Electronically Signed: Jesus Rivas, at 23:00 EDT , Service support , Echocardiogram 04/19/21 17:23 Interpretation Summary The estimated ejection fraction is EF 55-60% Moderate size RA mass mild TR Recommendation; Evaluate with JOSE Ordering Physician: Yajaira Fields Performed By: Radha Ruiz RDCS Physical Exam Narrative See subjective. Const alert, oriented x3 and no apparent distress HEENT head/scalp atraumatic and moist oral mucous membranes Head and Scalp: normocephalic Eyes EOMs intact bilaterally and conjunctivae normal Neck no lymphadenopathy, supple and no JVD Resp normal respiratory effort, no retractions, no use of accessory muscles and clear to auscultation bilaterally Cardio regular rate, regular rhythm, no murmurs and no JVD GI normal to inspection, nondistended, normoactive bowel sounds, soft to palpation and non-tender Extremity normal to inspection, full ROM and no clubbing, cyanosis or edema Skin no rashes or lesions noted, no wounds, skin turgor normal and no jaundice Neuro CN's II-XII intact bilaterally Psych affect normal Assessment & Plan Assessment/Plan (1) Diabetes mellitus, type 2: (2) Hypertension: (3) Acute CVA (cerebrovascular accident): PLAN: Day 2: See subjective for patient presentation. 1) TIA Brain C negative, CT-A of the head and neck normal, brain MRI unremarkable. SOC teleneurology consult obtained: TIA disagnosed. Plan; follow-up with neurology on discharge within the next 2 weeks, obtain EEG within the next 2 weeks, in itiate aspirin and statin on discharge. 2) Abnomral Echocardiogram Echocardiogram obtained on 04/20 demonstrated an estimated EF of 55 to 60%, moderately sized right atrial mass and mild tricuspid regurgitation. Cardiology is recommending transesophageal echocardiogram. Plan; JOSE ordered, patient remained admitted overnight. 3) DM2 Hemoglobin A1c 7.4 on 04/19/2021. Pt not currently on any home diabetic regimen. Plan; continue Accu-Cheks with sliding scale insulin. 4) HTN Currently 156/67, not within goal. Plan; continue home metoprolol regimen, hydralazine as needed, permissive hypertension secondary to #1. DVT prophylaxis - Heparin Patient seen by Darien Elizabeth PA-C, under the supervision of Dr. Fall. Documented by User: Dr. Alexandria Fall MD 04/20/21 16:17 Objective Data Lab / Micro Data Result Diagrams: 04/20/21 06:15 04/20/21 06:15 Charges/Coding Addendum Addendum: This patient was seen in conjunction with KAREN Young. I have independently interviewed and examined the patient and reviewed pertinent historical, laboratory, and other data. Please refer to KAREN Young's note for his patient's presentation, findings, and recommendations. I have reviewed and his note and concur with his documentation 80-year-old female who presented to the emergency room with speech difficulty. Patient speech was improved without being seen. Her blood pressure emergency room was 212/107. She was admitted to the telemetry unit for suspected acute CVA, hypertensive urgency. Patient blood pressure continues to improve. Stroke work-up was negative. 2D echocardiogram showed a moderate right atrial mass. Cardiology recommended JOSE. At the time of being seen, patient denied any new complaints. Physical Exam: Gen: Comfortable, not pale, not jaundiced CVS:HS I +II, regular, no murmurs RESP: Diminished at lung bases GI: BS present and normal, soft, nontender, no palpable organs EXT:No edema ASSESSMENT: 1. Speech difficulty, resolved 2. Right atrial mass, moderate 3. Hypertensive urgency 4. GERD Plan: Continue on aspirin, statin, Continue the rest of his other medications Visit Charges Inpatient E&M: 14803 Subs Hosp L3
--- NOTE | 2021-04-20 15:43 | PCM.CONS.C ---
Assessment & Plan Assessment/Plan (1) Acute CVA (cerebrovascular accident): PLAN: This is a 80-year-old female seen and evaluated at bedside Patient had stroke and history of hypertension with diabetes mellitus She been evaluated by regular 2D echocardiogram which is abnormal With evidence of right atrial mass and mild TR Also she has abnormal EKG with evidence of ventricular hypertrophy She has no active symptoms of chest pain. Plan and recommendation; Patient to be evaluated further with transesophageal echocardiogram. I will defer to the medical team for management of other medical problems hypertension diabetes and CVA. 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 showed underlying normal sinus rhythm (2) Hypertension: (3) Diabetes mellitus, type 2: HPI Consult Data Date of Consult: 04/20/21 HPI Narrative Reason for Consultation: Patient has abnormal echocardiogram with right atrial mass moderate in size HPI Narrative: TELMA OLMOS, is a 80 F who presents [facility] Medical History Asthma Former smoker Home Medications metoprolol tartrate 25 mg PO BID 04/19/21 [History Last Taken 04/19/21] pantoprazole 40 mg PO DAILY 04/19/21 [History Last Taken 04/19/21] aspirin 81 mg PO DAILY #30 tab 04/20/21 [Rx Last Taken Unknown] atorvastatin 40 mg PO DAILY #30 tab 04/20/21 [Rx Last Taken Unknown] Allergy/AdvReac Type Severity Reaction Status Date / Time Penicillins Allergy Anaphylaxis Verified 04/19/21 16:00 Family History (Updated 04/19/21 @ 16:24 by Fatoumata Montalvo NP, [employer]) Mother Pancreatic cancer CAD (coronary artery disease) Father Cancer Lung cancer Surgical History (Updated 04/19/21 @ 16:27 by Fatoumata Montalvo NP, [employer]-C) H/O hemorrhoidectomy H/O rhinoplasty History of appendectomy History of bladder surgery History of cataract surgery Social History (Updated 04/19/21 @ 16:28 by Fatoumata Montalvo NP, [employer]C) Smoking Status: Former smoker alcohol intake: never substance use type: does not use Physical Exam Narrative Patient seen today at bedside with the nursing staff Her son at bedside She is alert orientated x3 not in acute distress Her supervisor lead refinery showed normal sinus rhythm Cardiac examination S1-S2 normal, there is no murmur no systolic or diastolic murmur No pericardial rub Chest examination is clear to auscultation Examination abdomen soft Examination lower extremity no clubbing no cyanosis no lower extremity edema Examination of central nervous system no focal neurological signs. Objective Data Vital Signs: Vital Signs Temp Pulse Resp BP Pulse Ox 98.0 F 70 16 156/67 H 98 04/20/21 11:30 04/20/21 15:00 04/20/21 11:30 04/20/21 11:30 04/20/21 11:30 Oxygen Delivery Method Room Air Weight: 156 lb 6.405 oz Body Mass Index (BMI) 26.8 Intake & Output: Intake and Output for Last 24 Hours 04/18/21 04/19/21 04/20/21 23:59 23:59 23:59 Intake Total 851.25 / 851.25 1270.00 / 1270.00 Balance 851.25 / 851.25 1270.00 / 1270.00 Lab / Micro Data Result Diagrams: 04/20/21 06:15 04/20/21 06:15 Labs: Laboratory Results - last 24 hr 04/19/21 04/19/21 04/19/21 15:10 15:10 17:56 WBC RBC Hgb Hct MCV MCH MCHC RDW Std Deviation RDW Coeff of [place] Plt Count MPV Immature Gran % (Auto) Neut % (Auto) Lymph % (Auto) [place] % (Auto) Eos % (Auto) Baso % (Auto) Absolute Neuts (auto) Absolute Lymphs (auto) Nucleated RBC % Sodium Potassium Chloride Carbon Dioxide Anion Gap BUN Creatinine Estim Creat Clear Calc Est GFR (MDRD) Af Amer Est GFR (MDRD) Non-Af BUN/Creatinine Ratio Glucose Hemoglobin A1c 7.4 H Calcium Triglycerides 336 H Cholesterol 238 H LDL Cholesterol 126 VLDL Cholesterol 67 H HDL Cholesterol 45 TSH 2.82 POC Glucose 152 H 04/19/21 04/20/21 04/20/21 23:25 05:26 06:15 WBC 5.9 RBC 3.96 L Hgb 11.4 L Hct 36.0 L MCV 90.9 MCH 28.8 MCHC 31.7 L RDW Std Deviation 41.3 RDW Coeff of [place] 12.4 Plt Count 195 MPV 12.8 H Immature Gran % (Auto) 0.300 Neut % (Auto) 54.0 Lymph % (Auto) 32.6 [place] % (Auto) 9.7 Eos % (Auto) 3.1 Baso % (Auto) 0.3 Absolute Neuts (auto) 3.2 Absolute Lymphs (auto) 1.91 Nucleated RBC % 0 Sodium Potassium Chloride Carbon Dioxide Anion Gap BUN Creatinine Estim Creat Clear Calc Est GFR (MDRD) Af Amer Est GFR (MDRD) Non-Af BUN/Creatinine Ratio Glucose Hemoglobin A1c Calcium Triglycerides Cholesterol LDL Cholesterol VLDL Cholesterol HDL Cholesterol TSH POC Glucose 161 H 162 H 04/20/21 04/20/21 06:15 12:02 WBC RBC Hgb Hct MCV MCH MCHC RDW Std Deviation RDW Coeff of [place] Plt Count MPV Immature Gran % (Auto) Neut % (Auto) Lymph % (Auto) [place] % (Auto) Eos % (Auto) Baso % (Auto) Absolute Neuts (auto) Absolute Lymphs (auto) Nucleated RBC % Sodium 138 Potassium 4.0 Chloride 108 H Carbon Dioxide 25.0 Anion Gap 5 BUN 16 Creatinine 0.80 Estim Creat Clear Calc 48.43 Est GFR (MDRD) Af Amer 88 Est GFR (MDRD) Non-Af 73 BUN/Creatinine Ratio 20.0 Glucose 161 H Hemoglobin A1c Calcium 8.8 Triglycerides Cholesterol LDL Cholesterol VLDL Cholesterol HDL Cholesterol TSH POC Glucose 166 H Cardiology Labs/Tests 04/19/21 15:10: Triglycerides 336 H, Cholesterol 238 H, LDL Cholesterol 126, VLDL Cholesterol 67 H, HDL Cholesterol 45 04/19/21 15:10: Hemoglobin A1c 7.4 H 04/20/21 06:15: WBC 5.9, RBC 3.96 L, Hgb 11.4 L, Hct 36.0 L, MCV 90.9, MCH 28.8, MCHC 31.7 L, Plt Count 195, MPV 12.8 H, Immature Gran % (Auto) 0.300, Neut % (Auto) 54.0, Lymph % (Auto) 32.6, [place] % (Auto) 9.7, Eos % (Auto) 3.1, Baso % (Auto) 0.3, Absolute Neuts (auto) 3.2, Nucleated RBC % 0 04/20/21 06:15: Sodium 138, Potassium 4.0, Chloride 108 H, Carbon Dioxide 25.0, Anion Gap 5, BUN 16, Creatinine 0.80, Est GFR (MDRD) Af Amer 88, Est GFR (MDRD) Non-Af 73, BUN/Creatinine Ratio 20.0, Glucose 161 H, Calcium 8.8 Rhythm: Normal sinus rhythm EKG: Abnormal with evidence of left ventricular hypertrophy and secondary repolarization abnormality with clear evidence of ST-T change in the lateral lead ECHO: LV function preserved, moderate size mass noted in the right atrium, mild TR Radiography Diagnostic Testing: Radiology Impression Chest X-Ray 04/19/21 14:59 IMPRESSION: No evidence of acute cardiopulmonary process. Electronically Signed: Jesus Rivas DO at 18:24 EDT , Service support , Head/Neck CTA 04/19/21 15:00 IMPRESSION: Normal CTA Head and neck with contrast. Electronically Signed: Kate Baltazar, at 15:27 EDT Tel , Service support , ADDENDUM: 04/19/21 1620 IMPRESSION: Normal CTA Head and neck with contrast. N.B. : The above Results were Read Back by Kate Baltazar to Tip Lang MD, and understanding confirmed on 04/19/2021 16:13:06 (ET). Electronically Signed: Kate Baltazar, at 15:27 EDT Tel , Service support , Brain MRI 04/19/21 17:23 IMPRESSION: No evidence of acute intracranial bleed, mass or ischemia. Electronically Signed: Jesus Rivas DO at 23:00 EDT , Service support , Echocardiogram 04/19/21 17:23 Interpretation Summary The estimated ejection fraction is EF 55-60% Moderate size RA mass mild TR Recommendation; Evaluate with JOSE Ordering Physician: Yajaira Fields Performed By: Radha Ruiz RDCS
[2021-04-20] MEDS: Atorvastatin Calcium 80 MG Tablet PO (21:23)
[2021-04-20] MEDS: Acetaminophen 325 MG Tablet 650 MG PO (21:24)
[2021-04-20] MEDS: 0.9% Saline Lock 10 ML Syringe IV (22:41)
[2021-04-20] MEDS: hydrALAZINE 20 MG/ML Vial 5 MG IV (22:41)
[2021-04-21] VITALS (8 sets, daily range): BP systolic 132–158; BP diastolic 53–73; PULSE 62–68; RESP 16–18; TEMP 36.3–37.1; O2SAT 94–97; BMI 26.8
[2021-04-21 06:01] LABS: Absolute Lymphocyte Count 2.02 X10^3/uL (0.83-4.51); Absolute Neutrophil Count 3.6 X10^3/uL (2.0-7.7); Basophil# 0.04 X10^3/uL; Basophil% 0.6 % (0-1); Eosinophil# 0.21 X10^3/uL; Eosinophils% 3.2 % (0-5); Hematocrit 37.6 % (37-47); Lymphocyte # 2.02 X10^3/ul (0.83-4.51); Mean Corp Hgb Conc 31.9 g/dL (32-36); Mean Corpuscular Hgb 28.5 pg (27.0-32.0); Mean Corpuscular Volume 89.3 fL (81-99); Mean Platelet Vol. 12.4 fl (6.2-12.0); Monocyte# 0.64 X10^3/uL; Monocyte% 9.8 % (0-10); NRBC Flagged by Analyzer 0 % (0-5); Neutrophil # 3.59 X10^3/uL (2.7-7.7); Neutrophil % 55.1 % (47-70); Platelet Count 212 K/mm3 (150-450); RBC Distribution Width CV 12.5 % (11.6-14.6); RBC Distribution Width SD 40.6 fl (35.1-43.9); Red Blood Count 4.21 M/mm3 (4.2-5.4); White Blood Count 6.5 K/mm3 (4.4-11.0)
[2021-04-21 06:31] LABS: Anion Gap 4 (5-15); BUN 16 mg/dL (7-18); BUN/Creat Ratio 19.2 RATIO (10-20); Calcium,Total 9.2 mg/dL (8.5-10.1); Chloride 108 mmol/L (98-107); Creatinine, Serum 0.83 mg/dL (0.55-1.02); EST Glomerular Filtration Rate 70 mL/min (>60); Est Glom Filt Rate - Afr Amer 85 mL/min (>60); Estimated Creatinine Clearance 46.68 ml/min; Glucose 149 mg/dL (74-106); Potassium 4.5 mmol/L (3.5-5.1); Sodium Level 140 mmol/L (136-145)
--- NOTE | 2021-04-21 10:28 | PCM.DC ---
Discharge Instructions Diet Discharge Diet: No restrictions Activity Discharge Activity: Return to Normal Activity Follow Up Care Please Follow Up With: Primary care provider When: Within the next two weeks. Test Results: Test results from this visit will be discussed in further detail at your follow-up appointment, if applicable. Discharge Plan Admission Admit Date/Time: 04/19/21 15:58 Primary Reason for Your Visit: Slurred Speech Attending Provider: Alexandria Fall Primary Care Provider: Care Physician,No Primary Consulting Providers: Roxanne Machado Discharge Orders/Prescriptions Prescriptions: New atorvastatin 40 mg tablet 40 mg PO DAILY Qty: 30 RF: 0 aspirin 81 mg tablet,delayed release (DR/EC) 81 mg PO DAILY Qty: 30 RF: 0 Continued pantoprazole 40 mg Tablet,Delayed Release (Dr/Ec) 40 mg PO DAILY RF: 0 metoprolol tartrate 25 mg Tablet 25 mg PO BID RF: 0 Referrals / Follow Up: Zachary Sarabia MD [STAFF PHYSICIAN] - Within 2 Weeks (Follow up for benign atrial tumor. ) Jatinder Khan MD [STAFF PHYSICIAN] - Within 2 Weeks (Follow up for outpatient EEG s/p TIA. ) Care Physician,No Primary [Primary Care Provider] - Within 2 Weeks Disposition Disposition (needs filled in before D/C Order can be placed): Home, Self Care
--- NOTE | 2021-04-21 10:32 | PCM.DC.SUM ---
Documented by User: Darien JONES 04/21/21 10:41 Providers Date of Admission: 04/19/21 Primary Care Physician: No Primary Care Phys Consultations 04/20/21 14:38 Consult: Cardiology Routine Consulting Provider: Roxanne Machado Reason for Consult: atrial mass EMERGENT Consult: No MD Notified: Yes Date Notified: 04/20/21 Time Notified: 14:38 Method of Notification: md to md Reason For Visit: HYPERTENSIVE URGENCY, PROBABLE STROKE Diagnosis Discharge Diagnosis (1) Acute CVA (cerebrovascular accident): Status: Acute Code(s): I63.9 - Cerebral infarction, unspecified (2) Hypertension: Status: Chronic Code(s): I10 - Essential (primary) hypertension (3) Diabetes mellitus, type 2: Status: Acute Code(s): E11.9 - Type 2 diabetes mellitus without complications Medications at Discharge Home Medications metoprolol tartrate 25 mg PO BID 04/19/21 pantoprazole 40 mg PO DAILY 04/19/21 aspirin 81 mg PO DAILY #30 tab 04/20/21 atorvastatin 40 mg PO DAILY #30 tab 04/20/21 Hospital Course Summary of Care Provided Minutes Spent on Discharge: 35 Hospital Course: Disposition; discharge home w/ outpatient neurology and cardiology follow ups & establish with a primary care provider. 1) TIA Brain C negative, CT-A of the head and neck normal, brain MRI unremarkable. SOC teleneurology consult obtained: TIA disagnosed, recommendations below. Plan; follow-up with neurology on discharge within the next 2 weeks, obtain EEG within the next 2 weeks, initiate aspirin and statin on discharge, follow up with Speech therapy as an outpatient. 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 Echocardiogram obtained on 04/20 demonstrated an estimated EF of 55 to 60%, moderately sized right atrial mass and mild tricuspid regurgitation. Cardiology is recommending transesophageal echocardiogram. Plan; follow up with cardiology within the next two weeks. 3) DM2 Hemoglobin A1c 7.4 on 04/19/2021. Pt not currently on any home diabetic regimen. Plan; continue Accu-Cheks with sliding scale insulin, establish and follow up with primary care provider within the next two weeks. 4) HTN Currently 156/67, not within goal. Plan; continue home metoprolol regimen, follow up with primary care provider within the next two weeks. Patient seen by Darien Elizabeth PA-C, under the supervision of Dr. Fall. Physical Exam Narrative Patient is an 80-year-old female comfortably resting in bed, alert and oriented x3. Patient denies any change or progression of symptoms from yesterday. Denies headache, vision changes, slurred speech, chest pain, shortness of breath, palpitations, fever, chills, N/V/D. Const alert, oriented x3 and no apparent distress HEENT normocephalic, head/scalp atraumatic and hearing grossly normal bilaterally Eyes PERRL and EOMs intact bilaterally Neck no lymphadenopathy, supple and no JVD Resp normal respiratory effort, no retractions, no use of accessory muscles and clear to auscultation bilaterally Cardio regular rate, regular rhythm, no murmurs and no JVD GI normal to inspection, nondistended, normoactive bowel sounds, soft to palpation and non-tender Extremity normal to inspection, full ROM and no clubbing, cyanosis or edema Skin no rashes or lesions noted, no wounds and skin turgor normal Neuro CN's II-XII intact bilaterally Psych affect normal Weight / BMI Weight Weight: 156 lb 6.405 oz Body Mass Index (BMI) 26.8 ABG / Lab / Microbiology Data Result Diagrams: 04/21/21 05:42 04/21/21 05:42 Laboratory: Laboratory Results - last 24 hr 04/20/21 04/21/21 04/21/21 12:02 05:42 05:42 WBC 6.5 RBC 4.21 Hgb 12.0 Hct 37.6 MCV 89.3 MCH 28.5 MCHC 31.9 L RDW Std Deviation 40.6 RDW Coeff of [place] 12.5 Plt Count 212 MPV 12.4 H Immature Gran % (Auto) 0.300 Neut % (Auto) 55.1 Lymph % (Auto) 31.0 [place] % (Auto) 9.8 Eos % (Auto) 3.2 Baso % (Auto) 0.6 Absolute Neuts (auto) 3.6 Absolute Lymphs (auto) 2.02 Nucleated RBC % 0 Sodium 140 Potassium 4.5 Chloride 108 H Carbon Dioxide 28.0 Anion Gap 4 L BUN 16 Creatinine 0.83 Estim Creat Clear Calc 46.68 Est GFR (MDRD) Af Amer 85 Est GFR (MDRD) Non-Af 70 BUN/Creatinine Ratio 19.2 Glucose 149 H Calcium 9.2 POC Glucose 166 H Radiography Diagnostic Testing: Radiology Impression Echocardiogram 04/19/21 17:23 Interpretation Summary The estimated ejection fraction is EF 55-60% Moderate size RA mass mild TR Recommendation; Evaluate with JOSE Ordering Physician: Yajaira Fields Performed By: Radha Ruiz RDCS D/C Instructions Discharge Diet: No restrictions Please Follow Up With: Primary care provider When: Within the next two weeks. Meaningful Use Info Meaningful Use Diagnoses (Choose all that apply): None applicable Discharge Plan Admission Admit Date/Time: 04/19/21 15:58 Primary Reason for Your Visit: Slurred Speech Attending Provider: Alexandria Fall Primary Care Provider: Care Physician,Heather Primary Consulting Providers: Roxanne Machado Instructions Additional Instructions / Restrictions: Patient Problems: Altered Health Status related to Hospitalization Patient Goals: *Optimal Level of Health *Keep Appointments *Medication Compliance *Remain Safe Discharge Orders/Prescriptions Prescriptions: New atorvastatin 40 mg tablet 40 mg PO DAILY Qty: 30 RF: 0 aspirin 81 mg tablet,delayed release (DR/EC) 81 mg PO DAILY Qty: 30 RF: 0 Continued pantoprazole 40 mg Tablet,Delayed Release (Dr/Ec) 40 mg PO DAILY RF: 0 metoprolol tartrate 25 mg Tablet 25 mg PO BID RF: 0 Referrals / Follow Up: Zachary Sarabia MD [STAFF PHYSICIAN] - Within 2 Weeks (Follow up for benign atrial tumor. Please call to schedule follow up appointment) Jatinder Khan MD [STAFF PHYSICIAN] - Within 2 Weeks (Follow up for outpatient EEG s/p TIA. Please call to schedule follow up appointment) Care Physician,No Primary [Primary Care Provider] - Within 2 Weeks (Please call to schedule follow up appointment) Disposition Disposition (needs filled in before D/C Order can be placed): Home, Self Care Documented by User: Dr. Alexandria Fall MD 04/22/21 09:08 Providers Date of Admission: 04/19/21 Reason For Visit: HYPERTENSIVE URGENCY, PROBABLE STROKE Medications at Discharge Home Medications metoprolol tartrate 25 mg PO BID 04/19/21 pantoprazole 40 mg PO DAILY 04/19/21 aspirin 81 mg PO DAILY #30 tab 04/20/21 atorvastatin 40 mg PO DAILY #30 tab 04/20/21 ABG / Lab / Microbiology Data Result Diagrams: 04/21/21 05:42 04/21/21 05:42 Discharge Plan Admission Admit Date/Time: 04/19/21 15:58 Primary Reason for Your Visit: Slurred Speech Attending Provider: Alexandria Fall Primary Care Provider: Care Physician,No Primary Consulting Providers: Roxanne Machado Instructions Additional Instructions / Restrictions: Patient Problems: Altered Health Status related to Hospitalization Patient Goals: *Optimal Level of Health *Keep Appointments *Medication Compliance *Remain Safe Discharge Orders/Prescriptions Prescriptions: New atorvastatin 40 mg tablet 40 mg PO DAILY Qty: 30 RF: 0 aspirin 81 mg tablet,delayed release (DR/EC) 81 mg PO DAILY Qty: 30 RF: 0 Continued pantoprazole 40 mg Tablet,Delayed Release (Dr/Ec) 40 mg PO DAILY RF: 0 metoprolol tartrate 25 mg Tablet 25 mg PO BID RF: 0 Referrals / Follow Up: Zachary Sarabia MD [STAFF PHYSICIAN] - Within 2 Weeks (Follow up for benign atrial tumor. Please call to schedule follow up appointment) Jatinder Khan MD [STAFF PHYSICIAN] - Within 2 Weeks (Follow up for outpatient EEG s/p TIA. Please call to schedule follow up appointment) Care Physician,No Primary [Primary Care Provider] - Within 2 Weeks (Please call to schedule follow up appointment) Disposition Disposition (needs filled in before D/C Order can be placed): Home, Self Care Charges/Coding Addendum Addendum: This patient was seen in conjunction with KAREN Young. I have independently interviewed and examined the patient and reviewed pertinent historical, laboratory, and other data. Please refer to KAREN Young's note for his patient's presentation, findings, and recommendations. I have reviewed and his note and concur with his documentation 80-year-old female who presented to the emergency room with speech difficulty. Patient speech was improved without being seen. Her blood pressure emergency room was 212/107. She was admitted to the telemetry unit for suspected acute CVA, hypertensive urgency. Patient blood pressure continues to improve. Stroke work-up was negative. 2D echocardiogram showed a moderate right atrial mass. Cardiology recommended JOSE. JOSE showed a small to moderate sized right atrial mass. Subvalvular aortic membrane. No PFO. Cardiac MRI was recommended in the outpatient to better define right atrial mass. Patient will follow up with cardiology in the outpatient. At the time of being seen, patient denied any new complaints. Physical Exam: Gen: Comfortable, not pale, not jaundiced CVS:HS I +II, regular, no murmurs RESP: Diminished at lung bases GI: BS present and normal, soft, nontender, no palpable organs EXT:No edema Visit Charges Inpatient E&M: 81956 Disch Hosp
--- NOTE | 2021-04-21 10:34 | CASEMGMT ---
SAM Note: Referral Source: [place] Referral Reason: Patient has [place] Medicaid and Medicare. SAM spoke to Diya in Financial Services. SAM updated that patient has [place] Medicaid but [place] Medicaid at April 27 2021 as well as Medicare. Diya said that patient has to request 90 days retro for coverage. Diya said that if the family signs a release of information and specifies the box person as Ruth Benavidez they will speak to [facility] as her franchise sales representative. SAM went into patient's room and spoke to patient and her daughter. Patient was educated on [place] Medicaid and then explained that [facility] could provide a franchise sales representative. Patient and daughter in agreement with having Ruth Benavidez be a assigned franchise sales representative for patient. Patient signed necessary paperwork. Copies given to patient and daughter. No further questions or concerns. SAM provided financial services with the financial services. Plan: Home Irina KUMAR
--- NOTE | 2021-04-21 11:03 | CASEMGMT ---
MAGNUS REZA NOTE: Pt being discharged home. Daughter inquiring about ST as an OP. Dtr/pt both made aware she can be given script for OP ST and they can take to location of their choice. Dtr states prefers [facility]. Script for OP ST obtained and faxed to [facility] at this time. Copy of script also given to daughter and [facility] Rac card w/contact info. She plans to call them to check on insurance coverage and will set up the appts. Call placed to [employer] and they were made aware. Dtr also made aware of [facility] Van transportation and provided their info. She voices appreciation. Pt/dtr deny having other discharge planning needs/concerns/questions at this time. Janina SEO RN CM
--- NOTE | 2021-04-21 11:06 | PHA.DC.MC ---
Pharmacy Service has performed discharge medication reconciliation and counseling for this patient. 1. ASPIRIN 81MG PO DAILY 2. ATORVASTATIN 40MG PO QHS The patient's discharge medication list was reviewed for discrepancies and discrepancies were resolved. Home Medications metoprolol tartrate 25 mg PO BID 04/19/21 pantoprazole 40 mg PO DAILY 04/19/21 aspirin 81 mg PO DAILY #30 tab 04/20/21 atorvastatin 40 mg PO DAILY #30 tab 04/20/21 The patient was counseled on the following discharge medications and changes in medications for homegoing were reviewed. The Reason for Use, instructions for use, and potential side effects were reviewed for all new medications. The patient's questions regarding all of their medications were answered. The patient was able to verbally demonstrate an understanding of their discharge medications.
[2021-04-21] MEDS: Aspirin 81 MG TAB.CHEW PO (12:41)
[2021-04-21] MEDS: Metoprolol Tartrate 25 MG Tablet PO (12:41)
[2021-04-21] MEDS: Pantoprazole Sodium 40 MG Tablet PO (12:41)
== END 2021-04-21 13:15 | disposition home or self-care (01) | DRG 69 ==
LOC: ED 15:55 → PCU 16:03
PROVIDERS: Physician Assistant; Admitting Provider Hospitalist; Emergency Provider Emergency Medicine; Visit Provider Internal Medicine
DX: G45.9 Transient cerebral ischemic attack, unspecified (principal); I16.0 Hypertensive urgency; R47.01 Aphasia; R47.1 Dysarthria and anarthria; E11.9 Type 2 diabetes mellitus without complications; I10 Essential (primary) hypertension; N28.9 Disorder of kidney and ureter, unspecified; J45.909 Unspecified asthma, uncomplicated; K21.9 Gastro-esophageal reflux disease without esophagitis; Z79.899 Other long term (current) drug therapy; Z87.891 Personal history of nicotine dependence
CPT/HCPCS: 36415; 70450; 70496; 70498; 70551; 71045; 80048; 80061; 82962; 83036; 84443; 84484; 85025; 85610; 85730; 92523; 93005; 93306; 93312; 93320; 93325; 97161; 97166; 99285; J7030; J7040; Q9967; A4216

== ENCOUNTER → 2021-07-24 07:04 | Outpatient (CLI) | payer MEDICARE, MEDICAID, SELFPAY ==
[2021-07-24 10:01] LABS: Hemoglobin 12.1 g/dL (12.0-15.0); Mean Corp Hgb Conc 31.8 g/dL (32-36); Mean Corpuscular Hgb 29.3 pg (27.0-32.0); Mean Platelet Vol. 12.9 fl (6.2-12.0); Platelet Count 191 K/mm3 (150-450); RBC Distribution Width CV 13.2 % (11.6-14.6); RBC Distribution Width SD 45.1 fl (35.1-43.9); Red Blood Count 4.13 M/mm3 (4.2-5.4); White Blood Count 7.1 K/mm3 (4.4-11.0)
[2021-07-24 10:39] LABS: AST(SGOT) 14 U/L (15-37); Alanine Aminotransfer ALT/SGPT 24 U/L (13-56); Albumin, Serum 3.6 g/dL (3.2-5.0); Alkaline Phosphatase 120 U/L (45-117); Anion Gap 7 (5-15); BUN 18 mg/dL (7-18); Calcium,Total 9.4 mg/dL (8.5-10.1); Chloride 104 mmol/L (98-107); Cholesterol 133 mg/dL (200); EST Glomerular Filtration Rate 64 mL/min (>60); Est Glom Filt Rate - Afr Amer 77 mL/min (>60); Globulin 3.7 g/dL (2.2-4.2); Glucose 204 mg/dL (74-106); High Density Lipoprotein 51 mg/dL; Potassium 4.6 mmol/L (3.5-5.1); Protein, Total 7.3 g/dL (6.4-8.2); Sodium Level 140 mmol/L (136-145); Thyroid Stim Hormone (TSH) 2.53 uIU/mL (0.358-3.74); Triglycerides 132 mg/dL; Very Low Density Lipoprotein 26 mg/dL (5-40)
[2021-07-24 13:25] LABS: Vitamin B12 603 pg/mL (211-911)
[2021-07-28 10:19] LABS: Vitamin B1, Thiamine 141.7 nmol/L (66.5-200.0)
== END ==
PROVIDERS: Referring Provider Psychiatry & Neurology Neurology; Visit Provider Psychiatry & Neurology Neurology
DX: K92.1 Melena (principal); G31.84 Mild cognitive impairment of uncertain or unknown etiology; R47.01 Aphasia; E78.5 Hyperlipidemia, unspecified; Z86.73 Personal history of transient ischemic attack (TIA), 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 deficits
CPT/HCPCS: 36415; 80053; 80061; 82274; 82607; 82746; 84425; 84443; 85027

== ENCOUNTER → 2021-07-28 12:08 | Outpatient (CLI) | payer MEDICARE, MEDICAID, SELFPAY | PROVIDERS: Referring Provider Psychiatry & Neurology Neurology; Visit Provider Psychiatry & Neurology Neurology | DX: R47.01 Aphasia (principal); G31.84 Mild cognitive impairment of uncertain or unknown etiology; Z86.73 Personal history of transient ischemic attack (TIA), 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 deficits | CPT/HCPCS: 95819 ==

== ENCOUNTER → 2021-08-07 12:58 | Outpatient (CLI) | payer MEDICARE, MEDICAID, SELFPAY ==
--- NOTE | 2021-08-07 13:00 | ECHOD_ITS ---
Reason For Study: RA mass Procedure This was a 2D Doppler, Color Flow transthoracic echocardiogram. Exam performed in department. Left Ventricle Normal LV size. Left ventricular systolic function is normal. The estimated ejection fraction is 55 %. No regional wall motion abnormalities noted. Right Ventricle Normal RV size. Normal systolic function. Atria Normal left atrium. Normal right atrium. 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 Measuring 1.2 x 1.2 cm. Tricuspid Valve Normal tricuspid valve. Mild (1+) tricuspid valve insufficiency. Pulmonary artery systolic pressure is 35 mmHg. Pericardium/Pleural No pericardial effusion. MMode/2D Measurements & Calculations LVIDd: 4.5 cm IVSd: 1.2 cm Ao root diam: 2.9 cm LVIDs: 3.1 cm LVPWd: 1.2 cm RVDd: 3.1 cm FS: 32.0 % LAV(MOD-bp): 51.0 ml LA dimension(2D): 3.6 cm LA A4 area: 18.6 cm2 LAV(MOD-bp) Indexed: 29.0 ml/m2 LAV(MOD-sp2): 49.1 ml LAV(MOD-sp4): 48.8 ml RA A4 area: 13.3 cm2 Time Measurements MV dec time: 0.18 sec Doppler Measurements & Calculations MV E max wilmar: 73.3 cm/sec Lat Peak E' [place]: 5.5 cm/sec Med Peak E' [place]: 3.8 cm/sec MV A max wilmar: 75.0 cm/sec E/E' lat: 13.4 E/E' med: 19.2 MV E/A: 0.98 Ao V2 max: 105.3 cm/sec LV V1 max: 100.0 cm/sec PA V2 max: 73.0 cm/sec Ao max P.4 mmHg LV V1 max P.0 mmHg TR max wilmar: 263.8 cm/sec TR max P.8 mmHg ECHO/Echo Complete Interpretation Summary Normal LV size. Left ventricular systolic function is normal. The estimated ejection fraction is 55 %. 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 Measuring 1.2 x 1.2 cm Ordering Physician: Zachary Sarabia Referring Physician: NOE PCP Performed By: Caitlin Chan, CR, RVT
== END ==
PROVIDERS: Referring Provider Internal Medicine Cardiovascular Disease; Visit Provider Internal Medicine Cardiovascular Disease
DX: I51.89 Other ill-defined heart diseases (principal)
CPT/HCPCS: 93306

== ENCOUNTER 2021-08-12 13:34 | Emergency (ER) | payer MEDICARE, MEDICAID, SELFPAY ==
[2021-08-12 13:35] VITALS: BP 205/71; PULSE 60; RESP 18; TEMP 36; O2SAT 99; BMI 30.2
--- NOTE | 2021-08-12 15:40 | EDS_ITS ---
HPI HPI - Female History of Present Illness Chief Complaint: Female C/O Informant: patient Narrative Narrative: 81-year-old female presenting with vaginal discharge and itching. She states this started over a week ago. She has tried Monistat [id number]. She complains of burning with urination. She denies abdominal pain. Denies fever. Denies other complaints. Prior similar symptoms: Yes Recent Illness/Hospitalization: No PFSH PFSH Medical History (Updated 08/12/21 @ 16:[address] Katey Brandon MD) Asthma Complaint of melena Diabetes mellitus, type 2 Essential hypertension Former smoker GERD (gastroesophageal reflux disease) History of Lundberg's palsy History of blood transfusion History of cancer Home Medications metoprolol tartrate 25 mg PO BID 04/19/21 [History Last Taken 04/19/21] pantoprazole 40 mg PO DAILY 04/19/21 [History Last Taken 04/19/21] aspirin 81 mg PO DAILY #30 tab 04/20/21 [Rx Last Taken Unknown] apixaban 2.5 mg tablet 2.5 mg PO BID #180 tab 05/04/21 [Rx Last Taken Unknown] atorvastatin 40 mg tablet 40 mg PO DAILY #90 tab 05/26/21 [Rx Last Taken Unknown] multivitamin 1 tab PO DAILY 06/19/21 [History Last Taken Unknown] fluconazole [Diflucan] 150 mg PO Q3D #2 tab 08/12/21 [Rx Last Taken Unknown] Allergy/AdvReac Type Severity Reaction Status Date / Time tetracycline Allergy Unknown anaphylaxis Verified 08/12/21 13:37 Penicillins Allergy Anaphylaxis Verified 08/12/21 13:37 Family History (Updated 06/19/21 @ 09:12 by Vi Vazquez) Mother Pancreatic cancer CAD (coronary artery disease) Father Cancer Lung cancer Brother Parkinson disease Surgical History H/O hemorrhoidectomy H/O rhinoplasty H/O: hysterectomy History of appendectomy History of bladder surgery History of cataract surgery History of surgery Social History (Updated 06/19/21 @ 08:57 by Vi Vazquez) Smoking Status: Former smoker how long ago did patient quit smokin+ years alcohol intake: never substance use type: does not use ROS ROS ED Constitutional Constitutional ED: Denies fever(s) Eyes Eyes: Denies change in vision ENT ENT ED: Denies rhinorrhea or sore throat Cardiovascular Cardiovascular: Denies chest pain or palpitations Respiratory/Chest Respiratory/Chest: Denies cough or dyspnea Gastrointestinal Gastrointestinal: Denies abdominal pain, diarrhea, nausea or vomiting Genitourinary Genitourinary ED: Reports other Details: Vaginal discharge and itching ; Denies dysuria Musculoskeletal Musculoskeletal: Denies myalgias Integumentary Denies rash Neurologic Neurologic: Denies headache(s) Psychiatric Psychiatric: Denies suicidal thoughts EXAM Physical Exam Const Vital Signs: 08/12/21 13:35 Temperature 96.8 F L Temperature Source Temporal Pulse Rate 60 Respiratory Rate 18 Blood Pressure 205/71 H Blood Pressure Mean 115 Pulse Ox 99 Oxygen Delivery Method Room Air Positive well nourished and well developed General Appearance ED: well developed HEENT Reports normocephalic and head/scalp atraumatic Eyes PERRL and EOMs intact bilaterally Neck supple General: Negative for tenderness Chest Wall inspection of chest normal Resp normal respiratory effort and clear to auscultation bilaterally Cardio regular rate and regular rhythm GI non-tender and non-distended Palpation: soft; Negative for guarding or rebound tenderness present no CVA tenderness Narrative: Thick white vaginal discharge consistent with yeast, otherwise unremarkable Extremity normal to inspection Neuro oriented x3 Sensorium / Orientation: alert Psych mental status grossly normal MDM MDM MDM Narrative Medical decision making narrative: Urinalysis is unremarkable. Pelvic exam is consistent with yeast vaginitis. She was given Diflucan and a prescription for Diflucan. Advised to follow-up with Dr. Lara. Advised to return to the ED for worsening complaints. Lab Data Labs: Laboratory Results - last 24 hr 08/12/21 15:40 Urine Color Yellow Urine Clarity Clear Urine pH 6.5 Ur Specific [place] 1.010 Urine Protein Negative Urine Glucose (UA) Normal Urine Ketones Negative Urine Occult Blood Negative Urine Nitrite Negative Urine Bilirubin Negative Urine Urobilinogen Normal Ur Leukocyte Esterase Negative Urine RBC 0 SEEN Urine WBC 0 SEEN Ur Squamous Epith Cells 0-5 SEEN Urine Bacteria 0 SEEN Urine Mucus 0 SEEN Discharge Plan Triage Chief Complaint: Female C/O ED Provider: Katey Brandon Dx/Rx/DC Orders Clinical Impression: Yeast vaginitis Instructions: ED HELEN VAGINITIS Prescriptions: New fluconazole [Diflucan] 150 mg tablet 150 mg PO Q3D Qty: 2 RF: 0 No Action Eliquis 2.5 mg tablet 2.5 mg PO BID Qty: 180 RF: 2 multivitamin Tablet 1 tab PO DAILY RF: 0 pantoprazole 40 mg Tablet,Delayed Release (Dr/Ec) 40 mg PO DAILY RF: 0 metoprolol tartrate 25 mg Tablet 25 mg PO BID RF: 0 aspirin 81 mg tablet,delayed release (DR/EC) 81 mg PO DAILY Qty: 30 RF: 0 atorvastatin 40 mg tablet 40 mg PO DAILY Qty: 90 RF: 3 Primary Care Provider: Terell Scott Referrals: Thi Lara MD [STAFF PHYSICIAN] - Terell Scott MD [Primary Care Provider] - Disposition Disposition: Home, Self Care
[2021-08-12 15:44] LABS: Bacteria 0 SEEN /hpf (None Seen); Mucous, Urine 0 SEEN /hpf (<or=2+); Red Blood Cells-Urine 0 SEEN /hpf (0-5); White Blood Cells 0 SEEN /hpf (0-5)
[2021-08-12 15:50] LABS: Color, Urine Yellow (Yellow); Glucose, Dipstick Normal (Normal); Ketone-Dipstick Negative (Negative); Leukocyte Esterase-Dipstick Negative /ul (Negative); Nitrite-Dipstick Negative (Negative); Occult Blood-Urine Negative /ul (Negative); Protein-Dipstick Negative (Negative); Urine Bilirubin Dipstick Negative (Negative); Urine Clarity Clear (Clear); Urine Urobilinogen Normal (Normal); Urine pH 6.5 (5.0 - 8.0)
[2021-08-12 16:05] LABS: Squamous Epithelial Cells - UA 0-5 SEEN /hpf (5-10)
[2021-08-12] MEDS: Fluconazole 100 MG Tablet 150 MG PO (16:47)
[2021-08-12 16:53] VITALS: BP 213/73; PULSE 58; RESP 18; O2SAT 97
--- NOTE | 2021-08-12 16:54 | ED.RN ---
BP ELEVATED DR. BOSWELL MADE AWARE PRIOR TO D/C. PER MD PT TO FOLLOW UP WITH PCP. NO NEW ORDERS AT THIS TIME. PT D/C.
== END 2021-08-12 16:55 | disposition home or self-care (01) ==
PROVIDERS: Emergency Provider Emergency Medicine; PCP Family Medicine
DX: B37.3 Candidiasis of vulva and vagina (principal); E11.9 Type 2 diabetes mellitus without complications; I10 Essential (primary) hypertension; J45.909 Unspecified asthma, uncomplicated; K21.9 Gastro-esophageal reflux disease without esophagitis; Z79.82 Long term (current) use of aspirin; Z79.01 Long term (current) use of anticoagulants; Z79.899 Other long term (current) drug therapy; Z87.891 Personal history of nicotine dependence
CPT/HCPCS: 81001; 99283

== ENCOUNTER 2021-08-20 13:19 | Emergency (ER) | payer MEDICARE, MEDICAID, SELFPAY ==
[2021-08-20 13:19] VITALS: BP 184/63; PULSE 55; RESP 16; TEMP 36.2; O2SAT 98; BMI 31.2
[2021-08-20 13:38] VITALS: BP 179/70; PULSE 59; RESP 20; O2SAT 98
--- NOTE | 2021-08-20 13:44 | EKG12_ITS ---
Test Reason : HYPERTENSION Blood Pressure : / mmHG Vent. Rate : 060 BPM Atrial Rate : 060 BPM P-R Int : 206 ms QRS Dur : 086 ms QT Int : 454 ms P-R-T Axes : 072 -12 103 degrees QTc Int : 454 ms Normal sinus rhythm Left ventricular hypertrophy with repolarization abnormality Abnormal ECG Confirmed by BERNARD HELMS, RAKESH ([id number]), purchase request editor DAINA VASQUEZ ([id number]) on 08/22/2021 10:57:04 AM Referred By: BB Confirmed By:RAKESH WAGNER MD
--- NOTE | 2021-08-20 13:46 | EX.ED.DYSGE1 ---
HPI History of Present Illness Chief Complaint: Hypertension Informant: patient and family Onset/Context/Timing Onset: Yesterday Context: Gradual Onset Timing: Waxes and wanes Quality - All: similar prior headaches Narrative Narrative: Patient is a relatively poor historian, daughter states that is because she has some residual issues speaking since her stroke several years ago. She had a blood pressure of 208/80 at home, started having headache yesterday and feeling the blood beat in both sides of her neck. The head pain is gone now and she does not feel the neck pulsations either. When asked if she has had chest pain or shortness of breath, she states yes both, maybe 2 days ago, she really is not sure but denies any other symptoms now. She denies any peripheral neurologic symptoms or loss of consciousness. No nausea or vomiting. She states she has been compliant with her blood pressure medications which appears to be only metoprolol 25 mg twice daily. 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 No other medication changes. Compliant with her medications, she last took them this morning. Daughter agrees that she currently is at baseline for her. Additionally the patient states that her usual blood pressures tend to be elevated in the 170s. [facility] Medical History Asthma Complaint of melena Diabetes mellitus, type 2 Essential hypertension Former smoker GERD (gastroesophageal reflux disease) History of Lundberg's palsy History of blood transfusion History of cancer Stroke/cerebrovascular accident Home Medications metoprolol tartrate 25 mg PO BID 04/19/21 [History Last Taken 04/19/21] pantoprazole 40 mg PO DAILY 04/19/21 [History Last Taken 04/19/21] apixaban 2.5 mg tablet 2.5 mg PO BID #180 tab 05/04/21 [Rx Last Taken Unknown] atorvastatin 40 mg tablet 40 mg PO DAILY #90 tab 05/26/21 [Rx Last Taken Unknown] multivitamin 1 tab PO DAILY 06/19/21 [History Last Taken Unknown] amlodipine 10 mg PO DAILY #30 tab 08/20/21 [Rx Last Taken Unknown] clonidine HCl 0.1 mg PO BID PRN #10 tab 08/20/21 [Rx Last Taken Unknown] Allergy/AdvReac Type Severity Reaction Status Date / Time tetracycline Allergy Unknown anaphylaxis Verified 08/20/21 13:19 Penicillins Allergy Anaphylaxis Verified 08/20/21 13:19 Family History (Updated 06/19/21 @ 09:12 by Vi Vazquez) Mother Pancreatic cancer CAD (coronary artery disease) Father Cancer Lung cancer Brother Parkinson disease Surgical History H/O hemorrhoidectomy H/O rhinoplasty H/O: hysterectomy History of appendectomy History of bladder surgery History of cataract surgery History of surgery Social History Smoking Status: Former smoker how long ago did patient quit smokin+ years alcohol intake: never substance use type: does not use ROS ROS ED Constitutional Constitutional ED: Denies chills or fever(s) Eyes Eyes: Denies change in vision or diplopia ENT ENT ED: Denies rhinorrhea or sore throat Cardiovascular Cardiovascular: Denies chest pain or palpitations Respiratory/Chest Respiratory/Chest: Denies cough or dyspnea Gastrointestinal Gastrointestinal: Denies abdominal pain, diarrhea, nausea or vomiting Genitourinary Genitourinary ED: Denies dysuria or hematuria Musculoskeletal Musculoskeletal: Denies back pain or neck pain Integumentary Denies abscess or rash Neurologic Neurologic: Reports as per HPI, abnormal speech and headache(s); Denies paresthesias, seizure-like activity or weakness Psychiatric Psychiatric: Denies anxiety or suicidal thoughts EXAM Physical Exam Const Vital Signs: 08/20/21 13:19 08/20/21 13:38 08/20/21 13:59 Temperature 97.1 F L Temperature Source Temporal Pulse Rate 55 L 59 L 67 Respiratory Rate 16 20 H 15 Respiratory Effort Normal Non-Labored Respiratory Pattern Normal Blood Pressure 184/63 H 179/70 H 167/69 H Blood Pressure Mean 103 106 101 Pulse Ox 98 98 96 Oxygen Delivery Method Room Air Room Air Room Air Positive well nourished and well developed General Appearance ED: well developed and NAD HEENT Reports moist mucous membranes normocephalic and atraumatic Eyes PERRL and EOMs intact bilaterally Neck full ROM, no lymphadenopathy, supple, no meningeal signs, no JVD and no carotid bruits Resp normal respiratory effort and clear to auscultation bilaterally Cardio regular rate, regular rhythm and no murmurs GI non-tender and non-distended Auscultation: normoactive bowel sounds Palpation: soft Back/Spine no CVA tenderness General Back: other FROM Extremity normal to inspection General Extremety ED: Negative for edema, pulses abnormal or tenderness General Extremity: Negative for edema or pulses abnormal Neuro oriented x3, CN's II-XII intact bilaterally and no sensory deficits noted Neuro Narrative: Mild dysarthria. Limited due to accent. No aphasia. Sensorium / Orientation: awake and alert Motor Exam: strength 5/5 throughout Skin no rashes or lesions noted and no wounds MDM MDM MDM Narrative Medical decision making narrative: Work-up unremarkable. Patient was given a dose of clonidine 0.1 mg orally, her repeat blood pressure is 167/69, she feels much better although she was feeling pretty well when she got here. At this time I think it is reasonable to discharge her home with close outpatient follow-up for blood pressure recheck and management of her medications. Her heart rate is a little on the low side but she is tolerating it and not symptomatic from that, she is only on metoprolol 25 twice daily so I would add amlodipine to that, and she and the family are asking about the clonidine. As I discussed with them, it would not be an issue to prescribe her clonidine except if her doctor decides to change it to something else that they believe is more appropriate, then she has to taper it off instead of just stopping it. She would like to use the clonidine as needed if her blood pressure does not come down quickly with the amlodipine, patient manages her own medications and seems like she can manage this comfortably, so will prescribe her short amount of those to use prn. Lab Data Attestation: I reviewed the patient's lab results. Labs: Laboratory Results - last 24 hr 08/20/21 08/20/21 08/20/21 13:45 13:45 14:25 WBC 7.1 RBC 4.46 Hgb 13.3 Hct 40.1 MCV 89.9 MCH 29.8 MCHC 33.2 RDW Std Deviation 42.1 RDW Coeff of [place] 12.7 Plt Count 200 MPV 12.5 H Immature Gran % (Auto) 0.300 Neut % (Auto) 63.3 Lymph % (Auto) 25.2 [place] % (Auto) 8.8 Eos % (Auto) 2.0 Baso % (Auto) 0.4 Absolute Neuts (auto) 4.5 Absolute Lymphs (auto) 1.80 Nucleated RBC % 0 Sodium 138 Potassium 4.3 Chloride 103 Carbon Dioxide 29.0 Anion Gap 6 BUN 17 Creatinine 0.94 Estim Creat Clear Calc 33.71 Est GFR (MDRD) Af Amer 74 Est GFR (MDRD) Non-Af 61 BUN/Creatinine Ratio 18.1 Glucose 231 H Calcium 9.7 Troponin I High Sens 30 Urine Color Yellow Urine Clarity Clear Urine pH 6.5 Ur Specific [place] 1.010 Urine Protein Negative Urine Glucose (UA) 50 H Urine Ketones Negative Urine Occult Blood Negative Urine Nitrite Negative Urine Bilirubin Negative Urine Urobilinogen Normal Ur Leukocyte Esterase Negative Urine RBC 0 SEEN Urine WBC 0 SEEN Ur Squamous Epith Cells 0 SEEN Urine Bacteria 0 SEEN Urine Mucus 0 SEEN EKG Initial EKG: Attestation: I personally reviewed and interpreted this EKG as follows: Interpretation: Sinus Rhythm and No Acute Injury Pattern Comments: LVH with repolarization abnormality left ventricle Prior: Unchanged Discharge Plan Triage Chief Complaint: Hypertension ED Provider: Roger Taylor Dx/Rx/DC Orders Clinical Impression: Accelerated hypertension Instructions: Controlling High Blood Pressure Prescriptions: New amlodipine 10 mg tablet 10 mg PO DAILY Qty: 30 RF: 0 clonidine HCl 0.1 mg tablet 0.1 mg PO BID PRN (Reason: SBP > 180) Qty: 10 RF: 0 No Action Eliquis 2.5 mg tablet 2.5 mg PO BID Qty: 180 RF: 2 multivitamin Tablet 1 tab PO DAILY RF: 0 pantoprazole 40 mg Tablet,Delayed Release (Dr/Ec) 40 mg PO DAILY RF: 0 metoprolol tartrate 25 mg Tablet 25 mg PO BID RF: 0 atorvastatin 40 mg tablet 40 mg PO DAILY Qty: 90 RF: 3 Primary Care Provider: Terell Scott Referrals: Terell Scott MD [Primary Care Provider] - 5-7 Days Disposition Disposition: Home, Self Care
[2021-08-20 13:54] LABS: Absolute Neutrophil Count 4.5 X10^3/uL (2.0-7.7); Basophil# 0.03 X10^3/uL; Basophil% 0.4 % (0-1); Eosinophil# 0.14 X10^3/uL; Hematocrit 40.1 % (37-47); Hemoglobin 13.3 g/dL (12.0-15.0); Lymphocyte % 25.2 % (19-41); Mean Corp Hgb Conc 33.2 g/dL (32-36); Mean Corpuscular Hgb 29.8 pg (27.0-32.0); Mean Corpuscular Volume 89.9 fL (81-99); Mean Platelet Vol. 12.5 fl (6.2-12.0); Monocyte# 0.63 X10^3/uL; Monocyte% 8.8 % (0-10); NRBC Flagged by Analyzer 0 % (0-5); Neutrophil # 4.52 X10^3/uL (2.7-7.7); Neutrophil % 63.3 % (47-70); Platelet Count 200 K/mm3 (150-450); RBC Distribution Width CV 12.7 % (11.6-14.6); RBC Distribution Width SD 42.1 fl (35.1-43.9); Red Blood Count 4.46 M/mm3 (4.2-5.4); White Blood Count 7.1 K/mm3 (4.4-11.0)
[2021-08-20] MEDS: cloNIDine HCl 0.1 MG Tablet PO (13:58)
[2021-08-20 13:59] VITALS: BP 167/69; PULSE 67; RESP 15; O2SAT 96
[2021-08-20 14:11] LABS: Anion Gap 6 (5-15); BUN 17 mg/dL (7-18); BUN/Creat Ratio 18.1 RATIO (10-20); Calcium,Total 9.7 mg/dL (8.5-10.1); Chloride 103 mmol/L (98-107); Creatinine, Serum 0.94 mg/dL (0.55-1.02); EST Glomerular Filtration Rate 61 mL/min (>60); Est Glom Filt Rate - Afr Amer 74 mL/min (>60); Estimated Creatinine Clearance 33.71 ml/min; Glucose 231 mg/dL (74-106); Potassium 4.3 mmol/L (3.5-5.1); Sodium Level 138 mmol/L (136-145); Troponin-I HS 30 pg/mL (3.0-54.0)
[2021-08-20 14:31] LABS: Bacteria 0 SEEN /hpf (None Seen); Mucous, Urine 0 SEEN /hpf (<or=2+); Red Blood Cells-Urine 0 SEEN /hpf (0-5); Squamous Epithelial Cells - UA 0 SEEN /hpf (5-10); White Blood Cells 0 SEEN /hpf (0-5)
[2021-08-20 14:33] LABS: Color, Urine Yellow (Yellow); Glucose, Dipstick 50 mg/dl (Normal); Ketone-Dipstick Negative (Negative); Leukocyte Esterase-Dipstick Negative /ul (Negative); Nitrite-Dipstick Negative (Negative); Occult Blood-Urine Negative /ul (Negative); Protein-Dipstick Negative (Negative); Urine Bilirubin Dipstick Negative (Negative); Urine Clarity Clear (Clear); Urine Urobilinogen Normal (Normal); Urine pH 6.5 (5.0 - 8.0)
[2021-08-20 15:45] VITALS: BP 122/62; PULSE 55; RESP 17; O2SAT 97
[2021-08-20 15:50] VITALS: BP 109/54; PULSE 57; RESP 17; O2SAT 96
[2021-08-20] MEDS: amLODIPine 10 MG Tablet PO (16:09)
[2021-08-20 16:17] VITALS: BP 128/50; PULSE 61; RESP 20; O2SAT 96
== END 2021-08-20 16:19 | disposition home or self-care (01) ==
PROVIDERS: Emergency Provider Emergency Medicine; PCP Family Medicine
DX: I10 Essential (primary) hypertension (principal); R51.9 Headache, unspecified; E11.9 Type 2 diabetes mellitus without complications; D15.1 Benign neoplasm of heart; J45.909 Unspecified asthma, uncomplicated; I69.322 Dysarthria following cerebral infarction; K21.9 Gastro-esophageal reflux disease without esophagitis; Z79.01 Long term (current) use of anticoagulants; Z79.899 Other long term (current) drug therapy; Z87.891 Personal history of nicotine dependence
CPT/HCPCS: 80048; 81001; 84484; 85025; 93005; 99285

== ENCOUNTER → 2023-03-07 | Outpatient (CLI) | payer MEDICARE, MEDICAID, SELFPAY ==
--- NOTE | 2023-03-07 11:33 | RAD_ITS ---
EXAM: XR CHEST, 2 VIEWS CLINICAL INDICATION: chest pain TECHNIQUE: Frontal and lateral views of the chest. COMPARISON: 04/19/2021 FINDINGS: LUNGS AND PLEURAL SPACES: Unremarkable. No consolidation or edema. No pneumothorax. No effusion. HEART: Unremarkable. Cardiac silhouette not enlarged. MEDIASTINUM: Central airways and mediastinal contour are unremarkable. BONES/JOINTS: Unremarkable. SOFT TISSUES: Unremarkable. RAD/Chest PA and Lateral IMPRESSION: No radiographic evidence of acute cardiopulmonary disease. Electronically Signed: Enrrique Andrade MD at 21:06 EDT ,
[2023-03-07 12:26] LABS: Absolute Lymphocyte Count 1.53 X10^3/uL (0.83-4.51); Absolute Neutrophil Count 5.2 X10^3/uL (2.0-7.7); Basophil# 0.04 X10^3/uL; Basophil% 0.5 % (0-1); Eosinophil# 0.18 X10^3/uL; Eosinophils% 2.4 % (0-5); Hematocrit 37.8 % (37-47); Hemoglobin 12.1 g/dL (12.0-15.0); Lymphocyte # 1.53 X10^3/ul (0.83-4.51); Lymphocyte % 20.2 % (19-41); Mean Corpuscular Hgb 29.4 pg (27.0-32.0); Mean Platelet Vol. 12.6 fl (6.2-12.0); Monocyte# 0.63 X10^3/uL; Monocyte% 8.3 % (0-10); NRBC Flagged by Analyzer 0 % (0-5); Neutrophil # 5.16 X10^3/uL (2.7-7.7); Neutrophil % 68.3 % (47-70); Platelet Count 218 K/mm3 (150-450); RBC Distribution Width CV 13.1 % (11.6-14.6); RBC Distribution Width SD 43.9 fl (35.1-43.9); Red Blood Count 4.11 M/mm3 (4.2-5.4); White Blood Count 7.6 K/mm3 (4.4-11.0)
[2023-03-07 13:09] LABS: Anion Gap 6 (5-15); BUN 15 mg/dL (7-18); BUN/Creat Ratio 17.3 RATIO (10-20); Calcium,Total 9.7 mg/dL (8.5-10.1); Chloride 106 mmol/L (98-107); Creatinine, Serum 0.87 mg/dL (0.55-1.02); EST Glomerular Filtration Rate 67 mL/min (>60); Est Glom Filt Rate - Afr Amer 81 mL/min (>60); Glucose 296 mg/dL (74-106); Sodium Level 137 mmol/L (136-145)
== END | disposition home or self-care (01) ==
LOC: RAD 11:33
PROVIDERS: PCP Family Medicine; Referring Provider Internal Medicine Cardiovascular Disease; Visit Provider Internal Medicine Cardiovascular Disease
DX: R07.9 Chest pain, unspecified (principal)
CPT/HCPCS: 36415; 71046; 80048; 85025

== ENCOUNTER 2023-03-18 11:48 | Day surgery (SDC) | payer MEDICARE, MEDICAID, SELFPAY ==
[2023-03-15 09:45] VITALS: BMI 33.5
--- NOTE | 2023-03-18 13:39 | CL.D_ITS ---
Patient Name: TELMA OLMOS Study Date: 03/18/2023 Performing: Zachary Sarabia MD Ht: 60 inches 152.4 cm : 1940 Wt: 172 lbs 78.02 kg Age: 82 Gender: female BSA: 1.75 PROCEDURE(S) PERFORMED [id number])LHC/COR/LV CLINICAL PROFILE AND INDICATIONS Indications: Suspected CAD Heart Failure: None Stress/Imaging Stress/Image Study Performed: No CAD Presentations: No Sxs, no angina. CONCLUSIONS Non obstructive coronary arteries Normal LV size, wall motion,and systolic function No atrial mass noted. RECOMMENDATIONS Medical therapy DESCRIPTION OF PROCEDURE The patient arrived to the procedure lab. The risks and benefits of the procedure as well as a full description of our services here and current unavailability of surgical backup were fully explained to the patient and/or their significant other prior to the catheterization. The Timeout was completed, verifying the correct patient and procedure. The patient's procedural site was prepped and draped in the usual fashion. Local anesthetic was given subcutaneously to right radial region with Lidocaine 2%. Using a modified Seldinger technique, arterial access was obtained via the right radial artery, a 6Fr sheath was inserted. Left Coronary Artery selective angiography was performed in multiple views using a 5 Fr. 4.0 Alkol catheter. Right Coronary Artery selective angiography was then performed in multiple views using a 5 Fr. 4.0 Alkol catheter. Left Ventriculography was performed in BARNETT projection using a 5 Fr. Pigtail catheter. LV to AO pullback pressures were then recorded.The arterial sheath was pulled and a TR Band was applied for hemostasis CORONARY ANGIOGRAPHY DOMINANCE: Right Dominant LEFT HEART ASSESSMENT Left Ventricular Ejection Fraction: by LV Gram 70 % Normal LV wall motion Normal Left Ventricular systolic function LEFT MAIN: Angiographically normal LEFT ANTERIOR DESCENDING ARTERY: M size vessel with eccentric 40% proximal stenosis on both sides but no high-grade stenosis and tapering towards the apex of the ventricle CIRCUMFLEX ARTERY: Mild luminal irregularities less than 30% RIGHT CORONARY ARTERY: Mild luminal irregularities OSTIAL RCA: Non-obstructive COMPLICATIONS PROCEDURE MEDICATIONS Versed 1 mg IV Oxygen: 2 L/min via nasal cannula Heparin given IA 03/18/2023 13:18:33 Verapamil 2.5mg, Ntg 100mcgs, 3000 units of Heparin given IA 03/18/2023 13:18:33 SUMMARY OF HEMODYNAMIC DATA Time AIR REST ECG 11:31:23 AO 113/68 (88) SA 13:20:41 LV 120/4, 10 13:26:52 LV 124/7, 12 13:27:00 LV 115/6, 8 13:27:33 LVp 117/7, 12 13:27:36 AOp 119/9 (48) 13:27:43 Signed By Zachary Sarabia MD On 03/18/2023 13:39:04 Zachary Sarabia MD
== END 2023-03-18 15:30 | disposition home or self-care (01) ==
LOC: CLSP 11:48
PROVIDERS: PCP Family Medicine; Visit Provider Internal Medicine Cardiovascular Disease
DX: I25.10 Atherosclerotic heart disease of native coronary artery without angina pectoris (principal); I48.91 Unspecified atrial fibrillation; I51.89 Other ill-defined heart diseases; I10 Essential (primary) hypertension; Z86.73 Personal history of transient ischemic attack (TIA), 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 deficits; Z79.01 Long term (current) use of anticoagulants; Z79.84 Long term (current) use of oral hypoglycemic drugs; Z79.899 Other long term (current) drug therapy; Z87.891 Personal history of nicotine dependence
CPT/HCPCS: 93312; 93320; 93325; 93458; 99152; 99153; J7040; A4216; C1769; C1894

== ENCOUNTER → 2023-03-18 | Day surgery (SDC) | payer MEDICARE, MEDICAID, SELFPAY ==
--- NOTE | 2023-03-18 10:55 | ECHOTEE_ITS ---
Reason For Study: Chest Pain Medication JOSE probe 6VT-D (SN [id number]) passed with minimal difficulty. No complications were noted. Cetacaine Topical Maud given X3 orally. Versed 3 mg given slow IVP. Fentanyl 75 mcg given slow IVP. Performed a rapid injection of agitated mix of 9 cc saline and 1cc air to assess for atrial septal defect. Left Ventricle Normal LV size. Left ventricular systolic function is normal. The estimated ejection fraction is 60 %. No regional wall motion abnormalities noted. Right Ventricle Normal RV size. Normal systolic function. Atria Normal atrial septum. The left atrium is mildly enlarged. No thrombus is detected in the left atrial appendage. Normal right atrium. No masses noted. Mitral Valve Normal mitral valve. Mild-Moderate (1-2+) eccentric mitral valve insufficiency. Tricuspid Valve Normal tricuspid valve. Mild to moderate (1-2+) tricuspid valve insufficiency. Aortic Valve Normal aortic valve. Trisinus/trileaflet aortic valve. Pulmonic Valve Normal pulmonic valve. Vessels Normal aortic root. Normal arch. The pulmonary is not well visualized. Pericardium No pericardial effusion. ECHO/Echo Transesophageal (JOSE) Interpretation Summary No masses noted Normal LV size. Left ventricular systolic function is normal. The estimated ejection fraction is 60 %. Normal RV size. Mild to moderate (1-2+) tricuspid valve insufficiency. Ordering Physician: Zachary Sarabia Referring Physician: Terell Scott Performed By: Vi Best, RDCS, RVT
== END | disposition home or self-care (01) ==
LOC: CVS 10:50
PROVIDERS: PCP Family Medicine; Referring Provider Internal Medicine Cardiovascular Disease; Visit Provider Internal Medicine Cardiovascular Disease
DX: I51.89 Other ill-defined heart diseases (principal)
CPT/HCPCS: J3490; 93312; 93320; 93325; A4216

== ENCOUNTER 2023-03-30 21:37 | Emergency (ER) | payer MEDICARE, MEDICAID, SELFPAY ==
[2023-03-30 21:37] VITALS: BP 224/114; PULSE 73; RESP 14; O2SAT 98
[2023-03-30 21:40] VITALS: BP 199/85; PULSE 75; RESP 18; TEMP 37.1; O2SAT 100; BMI 32.8
[2023-03-30 21:50] VITALS: O2SAT 98
--- NOTE | 2023-03-30 21:50 | EKG12_ITS ---
Test Reason : DYSRHYTHMIA Blood Pressure : / mmHG Vent. Rate : 068 BPM Atrial Rate : 062 BPM P-R Int : 000 ms QRS Dur : 084 ms QT Int : 412 ms P-R-T Axes : 000 -10 104 degrees QTc Int : 438 ms Atrial fibrillation Premature ventricular complexes T wave abnormality, consider anterolateral ischemia Abnormal ECG Confirmed by BERNARD HELMS, RAKESH ([id number]), managing editor DAINA VASQUEZ ([id number]) on 04/02/2023 8:45:17 AM Referred By: ASHWIN Confirmed By:RAKESH WAGNER MD
--- NOTE | 2023-03-30 22:55 | CT_ITS ---
INDICATION: headache EXAMINATION: CT BRAIN - CT Head or Brain W/O Contrast Injection TECHNIQUE: Multiple axial images were obtained of the head without intravenous contrast. A radiation dose optimization technique was used for this scan. IV Contrast dosage and agent: None. RADIATION DOSAGE (If Supplied By Facility): CTDIvol = ( 44.99 ) mGy, DLP = ( 762.36 ) mGycm COMPARISON: CT and MR brain 04/19/2021 FINDINGS: BRAIN: Normal farmer/white matter differentiation. Low-lying cerebellar tonsils, similar compared to the prior. VENTRICLES: No hydrocephalus. EXTRA-AXIAL SPACES: No hemorrhages, fluid collections, or masses. CALVARIUM/SKULL BASE: Normal. FACE/SINUSES: Visualized portions normal. SOFT TISSUES: Normal. OTHER: None. CT/Brain/Head without Contrast IMPRESSION: No intracranial hemorrhage or depressed calvarial fracture. Electronically Signed: Hernando Rodriguez MD at 0:45 EDT ,
[2023-03-30] MEDS: cloNIDine HCl 0.1 MG Tablet PO (23:10)
[2023-03-30 23:17] LABS: Absolute Neutrophil Count 7.1 X10^3/uL (2.0-7.7); Basophil# 0.06 X10^3/uL; Basophil% 0.6 % (0-1); Eosinophils% 0.9 % (0-5); Hematocrit 43.6 % (37-47); Hemoglobin 14.1 g/dL (12.0-15.0); Lymphocyte % 24.5 % (19-41); Mean Corp Hgb Conc 32.3 g/dL (32-36); Mean Corpuscular Hgb 29.6 pg (27.0-32.0); Mean Corpuscular Volume 91.6 fL (81-99); Mean Platelet Vol. 9.2 fl (6.2-12.0); Monocyte# 0.73 X10^3/uL; Monocyte% 6.9 % (0-10); NRBC Flagged by Analyzer 0 % (0-5); Neutrophil # 7.09 X10^3/uL (2.7-7.7); Neutrophil % 66.8 % (47-70); Platelet Count 328 K/mm3 (150-450); RBC Distribution Width CV 12.5 % (11.6-14.6); RBC Distribution Width SD 42.2 fl (35.1-43.9); Red Blood Count 4.76 M/mm3 (4.2-5.4); White Blood Count 10.6 K/mm3 (4.4-11.0)
[2023-03-30 23:21] LABS: Prothrombin Time (Protime)PT. 13.2 SECONDS (11.7-14.9)
[2023-03-30 23:22] LABS: Partial Thromboplast Time 28.1 Seconds (24.1-36.2)
[2023-03-30] MEDS: 0.9% Normal Saline 1,000 ML 50 ML IV (23:26)
[2023-03-30] MEDS: hydrALAZINE 20 MG/ML Vial IV (23:27)
[2023-03-30 23:32] LABS: Anion Gap 8 (5-15); BUN 14 mg/dL (7-18); Calcium,Total 9.5 mg/dL (8.5-10.1); Chloride 108 mmol/L (98-107); Creatinine, Serum 0.74 mg/dL (0.55-1.02); EST Glomerular Filtration Rate 80 mL/min (>60); Est Glom Filt Rate - Afr Amer 97 mL/min (>60); Estimated Creatinine Clearance 31.15 ml/min; Glucose 100 mg/dL (74-106); Potassium 3.5 mmol/L (3.5-5.1); Sodium Level 143 mmol/L (136-145); Troponin-I HS 4 pg/mL (3.0-54.0)
[2023-03-30 23:37] VITALS: BP 198/65; PULSE 75; RESP 16; O2SAT 97
[2023-03-31 01:00] VITALS: BP 106/58; PULSE 79; RESP 17; O2SAT 98
--- NOTE | 2023-03-31 01:09 | EDS_ITS ---
HPI History of Present Illness Chief Complaint: Hypertension Informant: patient and family Narrative Narrative: Patient is an 82-year-old female with past medical history of hypertension hyperlipidemia GERD and atrial fibrillation currently on Eliquis. She takes losartan daily for her hypertension. Patient states she has been taking her medications as directed but this evening she was not feeling well and checked her blood pressure and it was elevated. She states with this she has had mild headache but denies any change in vision nausea vomiting chest pain or shortness of breath. She also denies any excessive stimulant use or illicit drug use. Son reports that because of her persistent elevated blood pressure mild headache he was concerned he could recently neurologic going on and therefore brought her in for evaluation. [facility] Medical History Asthma Complaint of melena Diabetes mellitus, type 2 Essential hypertension Former smoker GERD (gastroesophageal reflux disease) History of Lundberg's palsy History of blood transfusion History of cancer History of TIA (transient ischemic attack) Neck pain, bilateral Right atrial mass Stroke/cerebrovascular accident Home Medications multivitamin 1 tab PO DAILY 06/19/21 [History Last Taken Unknown] pantoprazole 40 mg tablet,delayed release 40 mg PO DAILY gerd #90 tabs 08/28/21 [Rx Last Taken Unknown] metformin 500 mg tablet 500 mg PO BID 02/15/22 [History Last Taken Unknown] metoprolol tartrate 50 mg tablet 50 mg PO BID 02/15/22 [History Last Taken Unknown] apixaban 2.5 mg tablet (Eliquis) 2.5 mg PO BID #180 tabs 02/21/22 [Rx Last Taken Unknown] atorvastatin 20 mg tablet 20 mg PO QHS 03/07/23 [History Last Taken Unknown] fluticasone furoate 100 mcg-vilanterol 25 mcg/dose inhalation powder (Breo Ellipta) 1 inh inhalation DAILY 03/07/23 [History Last Taken Unknown] losartan 100 mg tablet 100 mg PO DAILY 03/07/23 [History Last Taken Unknown] Allergy/AdvReac Type Severity Reaction Status Date / Time tetracycline Allergy Unknown anaphylaxis Verified 03/31/23 01:16 Penicillins Allergy Anaphylaxis Verified 03/31/23 01:16 Family History Mother Pancreatic cancer CAD (coronary artery disease) Father Cancer Lung cancer Brother Parkinson disease Surgical History H/O hemorrhoidectomy H/O rhinoplasty H/O: hysterectomy History of appendectomy History of bladder surgery History of cataract surgery History of surgery Social History Smoking Status: Former smoker how long ago did patient quit smokin+ years alcohol intake: never substance use type: does not use ROS ROS ED Constitutional Constitutional ED: Denies chills or fever(s) Eyes Eyes: Denies change in vision ENT ENT ED: Denies sore throat Cardiovascular Cardiovascular: Denies chest pain Respiratory/Chest Respiratory/Chest: Denies cough or dyspnea Gastrointestinal Gastrointestinal: Denies abdominal pain, diarrhea, nausea or vomiting Genitourinary Genitourinary ED: Denies dysuria Musculoskeletal Musculoskeletal: Denies myalgias Integumentary Denies rash Neurologic Neurologic: Reports headache(s) Hematologic/Lymphatic Hematologic/Lymphatic: Denies easy bleeding or easy bruising EXAM Physical Exam Const Vital Signs: 03/30/23 21:40 03/30/23 21:50 03/30/23 21:37 Temperature 98.7 F Temperature Source Temporal Pulse Rate 75 Respiratory Rate 18 Respiratory Effort Normal Non-Labored Respiratory Pattern Normal Blood Pressure 199/85 H Blood Pressure Mean 123 Pulse Ox 100 98 Oxygen Delivery Method Room Air Room Air 03/30/23 21:37 03/30/23 23:37 03/31/23 01:00 Temperature Temperature Source Pulse Rate 73 75 79 Respiratory Rate 14 16 17 Respiratory Effort Respiratory Pattern Blood Pressure 224/114 H 198/65 H 106/58 L Blood Pressure Mean 150 109 74 Pulse Ox 98 97 98 Oxygen Delivery Method Room Air Room Air Room Air 03/31/23 01:31 Temperature 98.6 F Temperature Source Pulse Rate 74 Respiratory Rate 16 Respiratory Effort Respiratory Pattern Blood Pressure 120/61 Blood Pressure Mean Pulse Ox 99 Oxygen Delivery Method Positive well nourished and well developed General Appearance ED: well developed HEENT Reports moist mucous membranes Eyes PERRL and EOMs intact bilaterally Neck supple Neck Narrative: No carotid bruit noted Chest Wall palpation of chest normal Resp normal respiratory effort and clear to auscultation bilaterally Cardio regular rate Rate: other Other Details: Irregularly irregular rhythm with regular rate consistent with history of atrial fibrillation Radial pulses are plus 2 out of 4 bilaterally are equal and symmetric GI normal to inspection, nondistended, normoactive bowel sounds, non-tender, non- distended and no masses GI Narrative: No voluntary guarding or rigidity No pulsatile mass or fluid wave Auscultation: normoactive bowel sounds Palpation: soft Extremity normal to inspection Extremity Narrative: No asymmetric edema no pitting edema negative Homans' sign bilaterally Neuro oriented x3, CN's II-XII intact bilaterally and no sensory deficits noted Neuro Narrative: Cranial nerves II through XII are grossly intact there are no focal neurologic deficits. No pronator drift no dysmetria no truncal ataxia. NIH stroke scale score of 0 Sensorium / Orientation: alert Psych mental status grossly normal Skin no rashes or lesions noted MDM MDM MDM Narrative Medical decision making narrative: Patient presented to the ER hypertensive and in atrial fibrillation but rate controlled and does have a past medical history of this. She has a normal neurologic exam but does report mild headache and with the blood thinner on board there is concern for a spontaneous subarachnoid hemorrhage so a noncontrast CT was obtained. This revealed no acute finding. Patient denied any other symptoms of endorgan damage but based on her hypertension basic blood work was obtained to assess this. EKG showed no acute coronary injury troponin is normal and there is no signs of acute kidney injury as well. Patient was medicated with 20 mg of hydralazine and 0.1 of clonidine and on reevaluation had reduction of her blood pressure to 120/60. On reevaluation her neuro exam remains normal. Therefore at this time with improvement of blood pressure and no signs of endorgan damage such as hypertensive encephalopathy or acute kidney injury or acute coronary syndrome she is otherwise safe for discharge History & Record Review Discussion w/independent historian: Patient and Family Lab Data Attestation: I reviewed the patient's lab results. Labs: Laboratory Results - last 24 hr 03/30/23 03/30/23 03/30/23 23:00 23:00 23:00 WBC 10.6 RBC 4.76 Hgb 14.1 Hct 43.6 MCV 91.6 MCH 29.6 MCHC 32.3 RDW Std Deviation 42.2 RDW Coeff of [place] 12.5 Plt Count 328 MPV 9.2 Immature Gran % (Auto) 0.300 Neut % (Auto) 66.8 Lymph % (Auto) 24.5 [place] % (Auto) 6.9 Eos % (Auto) 0.9 Baso % (Auto) 0.6 Absolute Neuts (auto) 7.1 Absolute Lymphs (auto) 2.60 Nucleated RBC % 0 PT 13.2 INR 1.0 APTT 28.1 Sodium 143 Potassium 3.5 Chloride 108 H Carbon Dioxide 27.0 Anion Gap 8 BUN 14 Creatinine 0.74 Estim Creat Clear Calc 31.15 Est GFR (MDRD) Af Amer 97 Est GFR (MDRD) Non-Af 80 BUN/Creatinine Ratio 19.0 Glucose 100 Calcium 9.5 Troponin I High Sens 4 Radiography Diagnostic Testing: Clinical Impression(s) from Imaging Studies Brain CT 03/30/23 22:55 IMPRESSION: No intracranial hemorrhage or depressed calvarial fracture. Electronically Signed: Hernando Rodriguez MD at 0:45 EDT , Discharge Plan Triage Chief Complaint: Hypertension ED Provider: Dick Love Dx/Rx/DC Orders Clinical Impression: Accelerated hypertension, Atrial fibrillation, chronic, Current use of terminal carman anticoagulation Instructions: Controlling High Blood Pressure, Blood Pressure Check Steps Prescriptions: No Action pantoprazole 40 mg tablet,delayed release (DR/EC) 40 mg PO DAILY Qty: 90 3RF multivitamin Tablet 1 tab PO DAILY metoprolol tartrate 50 mg tablet 50 mg PO BID metformin 500 mg tablet 500 mg PO BID losartan 100 mg tablet 100 mg PO DAILY atorvastatin 20 mg tablet 20 mg PO QHS Label Comments: TAKE 1 TABLET BY MOUTH ONCE DAILY fluticasone furoate-vilanterol [Breo Ellipta] 100-25 mcg/dose blister with device 1 inh inhalation DAILY Label Comments: INHALE 1 PUFF BY MOUTH ONCE DAILY DIRECTED Eliquis 2.5 mg tablet 2.5 mg PO BID Qty: 180 2RF Primary Care Provider: Terell Scott Referrals: Terell Scott MD [Primary Care Provider] - Activity Restrictions/Additional Instructions: Your work-up today showed no signs of endorgan damage which is damage to your brain heart or kidneys from the elevated blood pressure. Continue all of your medications as previously directed and follow-up with your family doctor for repeat evaluation Disposition Disposition: Home, Self Care Discharge Date/Time: 03/31/23 01:33
[2023-03-31 01:31] VITALS: BP 120/61; PULSE 74; RESP 16; TEMP 37; O2SAT 99
== END 2023-03-31 01:33 | disposition home or self-care (01) ==
PROVIDERS: Emergency Provider Emergency Medicine; PCP Family Medicine; Visit Provider Emergency Medicine
DX: I10 Essential (primary) hypertension (principal); I48.20 Chronic atrial fibrillation, unspecified; E11.9 Type 2 diabetes mellitus without complications; Z87.891 Personal history of nicotine dependence; Z79.01 Long term (current) use of anticoagulants
CPT/HCPCS: 70450; 80048; 84484; 85025; 85610; 85730; 93005; 96374; 99285; J7030; A4216

== ENCOUNTER 2023-04-05 17:37 | Emergency (ER) | payer MEDICARE, MEDICAID, SELFPAY ==
[2023-04-05] VITALS (8 sets, daily range): BP systolic 132–192; BP diastolic 61–83; PULSE 62–75; RESP 12–18; TEMP 36.6; O2SAT 96–99; BMI 32.2
--- NOTE | 2023-04-05 18:12 | EKG12_ITS ---
Test Reason : HTN Blood Pressure : / mmHG Vent. Rate : 075 BPM Atrial Rate : 000 BPM P-R Int : 000 ms QRS Dur : 082 ms QT Int : 402 ms P-R-T Axes : 000 -16 107 degrees QTc Int : 448 ms Atrial fibrillation Moderate voltage criteria for LVH, may be normal variant ( R in aVL , [place] product ) ST & T wave abnormality, consider lateral ischemia Abnormal ECG Confirmed by BERNARD HELMS, RAKESH ([id number]), copy editor DAINA VASQUEZ ([id number]) on 04/08/2023 1:39:23 PM Referred By: MARIO Confirmed By:RAKESH WAGNER MD
--- NOTE | 2023-04-05 18:35 | RAD_ITS ---
STUDY: XR Chest 1 View 04/05/2023 7:51 PM REASON FOR EXAM: Female, 82 years old. CHEST PAIN Hypertension COMPARISON: 03.07.23 TECHNIQUE: XR Chest 1 View FINDINGS: There is no demonstrated pleural abnormality. Enlarged heart size. Normal mediastinum. Normal glenn. Prominent appearing increased interstitial lung markings. Normal visualized pulmonary arteries. There is atherosclerotic calcification of the aortic arch with tortuosity. There are diffuse degenerative changes of the visualized thoracic spine. There is degenerative osteoarthritis of the bilateral shoulders. There is no demonstrated abnormality of the visualized soft tissue structures of the upper abdomen. RAD/Chest 1 View (Portable) IMPRESSION: There are no acute findings. Electronically Signed: Nelson Lowry MD at 19:08 EDT ,
--- NOTE | 2023-04-05 18:40 | ED.RN ---
THIS RN CALLED PHARMACY TO LET THEM KNOW BOTH OMNICELL NOT STOCKED WITH TRANDATE. PHARMACY TO SEND SOME TO ER.
[2023-04-05 18:47] LABS: Absolute Lymphocyte Count 1.78 X10^3/uL (0.83-4.51); Absolute Neutrophil Count 4.6 X10^3/uL (2.0-7.7); Basophil# 0.04 X10^3/uL; Basophil% 0.6 % (0-1); Eosinophil# 0.17 X10^3/uL; Eosinophils% 2.3 % (0-5); Hematocrit 37.5 % (37-47); Lymphocyte # 1.78 X10^3/ul (0.83-4.51); Lymphocyte % 24.6 % (19-41); Mean Corpuscular Hgb 29.2 pg (27.0-32.0); Mean Corpuscular Volume 91.2 fL (81-99); Mean Platelet Vol. 12.9 fl (6.2-12.0); Monocyte# 0.62 X10^3/uL; Monocyte% 8.6 % (0-10); NRBC Flagged by Analyzer 0 % (0-5); Neutrophil % 63.5 % (47-70); Platelet Count 228 K/mm3 (150-450); RBC Distribution Width CV 13.3 % (11.6-14.6); RBC Distribution Width SD 44.4 fl (35.1-43.9); Red Blood Count 4.11 M/mm3 (4.2-5.4); White Blood Count 7.2 K/mm3 (4.4-11.0)
[2023-04-05 19:05] LABS: Anion Gap 8 (5-15); BUN 13 mg/dL (7-18); Calcium,Total 9.3 mg/dL (8.5-10.1); Chloride 104 mmol/L (98-107); Creatinine, Serum 1.08 mg/dL (0.55-1.02); EST Glomerular Filtration Rate 52 mL/min (>60); Est Glom Filt Rate - Afr Amer 62 mL/min (>60); Estimated Creatinine Clearance 28.85 ml/min; Glucose 303 mg/dL (74-106); Potassium 3.9 mmol/L (3.5-5.1); Sodium Level 136 mmol/L (136-145); Troponin-I HS 38 pg/mL (3.0-54.0)
[2023-04-05] MEDS: Labetalol (Prefilled) 20 MG/4 ML 10 MG IV (19:25)
--- NOTE | 2023-04-05 20:05 | EDS_ITS ---
HPI History of Present Illness Chief Complaint: Hypertension Informant: patient Onset/Context/Timing Onset: Weeks (1) Context: Gradual Onset Timing: Continuous Quality: Throbbing Location: Right occipital/parietal area Worsened by: Nothing Relieved by: Nothing Narrative Narrative: Patient presents with elevated blood pressure that has been getting worse over the last week. Patient states it is gradually getting worse. Patient admits to headaches. Patient describes her headache as throbbing. Patient states it is mainly over the right occipital and parietal areas but sometimes is generalized. Patient states nothing makes it better nothing makes it worse. Patient checked her blood pressure at home and it was 200/107. Patient does admit to some blurred vision. Patient also admits to a cough. Patient denies any chest pain or shortness of breath. Patient denies any nausea or vomiting. Patient denies any diaphoresis. [facility] Medical History Asthma Complaint of melena Diabetes mellitus, type 2 Essential hypertension Former smoker GERD (gastroesophageal reflux disease) History of Lundberg's palsy History of blood transfusion History of cancer History of TIA (transient ischemic attack) Neck pain, bilateral Right atrial mass Stroke/cerebrovascular accident Home Medications multivitamin 1 tab PO DAILY 06/19/21 [History Last Taken Unknown] pantoprazole 40 mg tablet,delayed release 40 mg PO DAILY gerd #90 tabs 08/28/21 [Rx Last Taken Unknown] metformin 500 mg tablet 500 mg PO BID 02/15/22 [History Last Taken Unknown] metoprolol tartrate 50 mg tablet 50 mg PO BID 02/15/22 [History Last Taken Unknown] apixaban 2.5 mg tablet (Eliquis) 2.5 mg PO BID #180 tabs 02/21/22 [Rx Last Taken Unknown] atorvastatin 20 mg tablet 20 mg PO QHS 03/07/23 [History Last Taken Unknown] fluticasone furoate 100 mcg-vilanterol 25 mcg/dose inhalation powder (Breo Ellipta) 1 inh inhalation DAILY 03/07/23 [History Last Taken Unknown] losartan 100 mg tablet 100 mg PO DAILY 03/07/23 [History Last Taken Unknown] Allergy/AdvReac Type Severity Reaction Status Date / Time tetracycline Allergy Unknown anaphylaxis Verified 04/05/23 17:56 Penicillins Allergy Anaphylaxis Verified 04/05/23 17:56 Family History Mother Pancreatic cancer CAD (coronary artery disease) Father Cancer Lung cancer Brother Parkinson disease Surgical History H/O hemorrhoidectomy H/O rhinoplasty H/O: hysterectomy History of appendectomy History of bladder surgery History of cataract surgery History of surgery Social History Smoking Status: Former smoker how long ago did patient quit smokin+ years alcohol intake: never substance use type: does not use ROS ROS ED Constitutional Constitutional ED: Denies chills or fever(s) Eyes Eyes: Reports blurry vision; Denies change in vision ENT ENT ED: Denies rhinorrhea or sore throat Cardiovascular Cardiovascular: Denies chest pain or palpitations Respiratory/Chest Respiratory/Chest: Reports cough; Denies dyspnea Gastrointestinal Gastrointestinal: Denies nausea or vomiting Genitourinary Genitourinary ED: Denies dysuria or hematuria Musculoskeletal Musculoskeletal: Reports neck pain; Denies back pain Integumentary Denies abscess or rash Neurologic Neurologic: Reports headache(s); Denies weakness Allergic/Immunologic Allergic/Immunologic ED: Denies mouth swelling or urticaria EXAM Physical Exam Const Vital Signs: 04/05/23 17:38 04/05/23 17:57 04/05/23 18:19 Temperature 97.9 F Temperature Source Temporal Pulse Rate 74 69 Respiratory Rate 18 18 Respiratory Effort Normal Non-Labored Respiratory Pattern Normal Blood Pressure 192/77 H 172/70 H Blood Pressure Mean 115 104 Pulse Ox 99 99 Oxygen Delivery Method Room Air Room Air 04/05/23 18:37 04/05/23 19:07 04/05/23 19:17 Temperature Temperature Source Pulse Rate 75 66 Respiratory Rate 17 12 Respiratory Effort Respiratory Pattern Blood Pressure 176/83 H 165/74 H 150/73 H Blood Pressure Mean 114 104 98 Pulse Ox 96 97 Oxygen Delivery Method Room Air Room Air 04/05/23 19:23 04/05/23 19:34 Temperature Temperature Source Pulse Rate Respiratory Rate Respiratory Effort Respiratory Pattern Blood Pressure 166/65 H 132/61 H Blood Pressure Mean 98 84 Pulse Ox Oxygen Delivery Method Positive well nourished and well developed General Appearance ED: well developed HEENT Reports moist mucous membranes Neck supple and no JVD Resp normal respiratory effort and clear to auscultation bilaterally Cardio regular rate and regular rhythm GI normal to inspection, nondistended, normoactive bowel sounds and non-tender Palpation: soft Extremity normal to inspection General Extremety ED: Negative for edema or tenderness General Extremity: Negative for edema Neuro oriented x3, CN's II-XII intact bilaterally and no sensory deficits noted Sensorium / Orientation: alert Motor Exam: strength 5/5 throughout Psych mental status grossly normal Skin no rashes or lesions noted MDM MDM MDM Narrative Medical decision making narrative: Differential diagnosis includes hypertensive urgency, hypertensive emergency, cardiac dysrhythmia, cardiac ischemia, and accelerated hypertension. EKG will be obtained to assess for cardiac dysrhythmia and cardiac ischemia. Chest x-ray will be obtained to assess for pneumonia and widened mediastinum. CBC will be obtained to assess for leukocytosis and anemia. Basic metabolic profile will be obtained to assess for electrolyte abnormality and renal function. High- sensitivity troponin will be obtained to assess for cardiac ischemia. Lab Data Attestation: I reviewed the patient's lab results. Lab results narrative: CBC was reviewed and was within normal limits. Basic metabolic profile was reviewed. Glucose was elevated at 303. The remainder was within normal limits. High-sensitivity troponin was reviewed and was normal at 38. Labs: Laboratory Results - last 24 hr 04/05/23 04/05/23 18:35 18:35 WBC 7.2 RBC 4.11 L Hgb 12.0 Hct 37.5 MCV 91.2 MCH 29.2 MCHC 32.0 RDW Std Deviation 44.4 H RDW Coeff of [place] 13.3 Plt Count 228 MPV 12.9 H Immature Gran % (Auto) 0.400 Neut % (Auto) 63.5 Lymph % (Auto) 24.6 [place] % (Auto) 8.6 Eos % (Auto) 2.3 Baso % (Auto) 0.6 Absolute Neuts (auto) 4.6 Absolute Lymphs (auto) 1.78 Nucleated RBC % 0 Sodium 136 Potassium 3.9 Chloride 104 Carbon Dioxide 24.0 Anion Gap 8 BUN 13 Creatinine 1.08 H Estim Creat Clear Calc 28.85 Est GFR (MDRD) Af Amer 62 Est GFR (MDRD) Non-Af 52 L BUN/Creatinine Ratio 12.0 Glucose 303 H Calcium 9.3 Troponin I High Sens 38 Radiography Diagnostic Testing: Clinical Impression(s) from Imaging Studies Chest X-Ray 04/05/23 18:35 IMPRESSION: There are no acute findings. Electronically Signed: Nelson Lowry MD at 19:08 EDT , Portable 1 view chest x-ray was obtained. On my independent interpretation, lung monsalve are clear. There is normal cardiac silhouette. Bony thorax is normal. There is no acute process noted. Radiologist also interpreted the x- ray and agrees. EKG Initial EKG: Attestation: I personally reviewed and interpreted this EKG as follows: Interpretation: Atrial Fibrillation (75) and Non-Specific ST Changes Comments: EKG was obtained. On my independent interpretation, it shows atrial fibrillation with a rate of 75. QRS interval was normal at 82 ms. QTc interval was normal at 448 ms. There is borderline left axis deviation at -16. There is left ventricular hypertrophy with nonspecific ST-T wave changes. There are no acute changes noted. This was unchanged compared to previous EKG dated 03/30/2023. Prior EKG tracings: available for review Prior: Unchanged (03/30/2023) Treatment and Re-Evaluation :: Patient was given a dose of labetalol here. Patient's blood pressure improved to 132/61. Patient was feeling better on reevaluation. Patient was instructed to continue to monitor her blood pressures at home. Patient was instructed to follow-up with her primary care physician in 3 to 5 days for reevaluation. Patient and family understood and were agreeable with the plan. All questions were answered. Discharge Plan Triage Chief Complaint: Hypertension ED Provider: Keenan Velazco Dx/Rx/DC Orders Clinical Impression: Accelerated hypertension, Atrial fibrillation, chronic Instructions: ED Hypertension, Established Prescriptions: No Action pantoprazole 40 mg tablet,delayed release (DR/EC) 40 mg PO DAILY Qty: 90 3RF multivitamin Tablet 1 tab PO DAILY metoprolol tartrate 50 mg tablet 50 mg PO BID metformin 500 mg tablet 500 mg PO BID losartan 100 mg tablet 100 mg PO DAILY atorvastatin 20 mg tablet 20 mg PO QHS Label Comments: TAKE 1 TABLET BY MOUTH ONCE DAILY fluticasone furoate-vilanterol [Breo Ellipta] 100-25 mcg/dose blister with device 1 inh inhalation DAILY Label Comments: INHALE 1 PUFF BY MOUTH ONCE DAILY DIRECTED Eliquis 2.5 mg tablet 2.5 mg PO BID Qty: 180 2RF Primary Care Provider: Terell Scott Referrals: Terell Scott MD [Primary Care Provider] - 3-5 Days Disposition Disposition: Home, Self Care
== END 2023-04-05 20:23 | disposition home or self-care (01) ==
PROVIDERS: Emergency Provider Emergency Medicine; PCP Family Medicine; Visit Provider Emergency Medicine
DX: I10 Essential (primary) hypertension (principal); I48.20 Chronic atrial fibrillation, unspecified; E11.9 Type 2 diabetes mellitus without complications; H53.8 Other visual disturbances; Z79.01 Long term (current) use of anticoagulants; Z79.84 Long term (current) use of oral hypoglycemic drugs; Z79.899 Other long term (current) drug therapy; Z87.891 Personal history of nicotine dependence; Z86.73 Personal history of transient ischemic attack (TIA), 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 deficits
CPT/HCPCS: 71045; 80048; 84484; 85025; 93005; 96374; 99284; A4216

== ENCOUNTER 2023-04-22 16:51 | Emergency (ER) | payer MEDICARE, MEDICAID, SELFPAY ==
[2023-04-22 16:52] VITALS: BP 197/102; PULSE 74; RESP 18; TEMP 36.1; O2SAT 96; BMI 32.8
--- NOTE | 2023-04-22 17:55 | CT_ITS ---
STUDY: CT BRAIN WITHOUT CONTRAST REASON FOR EXAM: Female, 82 years old. headache RADIATION DOSAGE (If Supplied By Facility): CTDIvol = ( 47.06 ) mGy, DLP = ( 802.10 ) mGycm TECHNIQUE: Transaxial CT imaging of the brain was performed without administration of intravenous contrast material. Individualized dose optimization techniques were used for this CT. COMPARISON: 03/30/2023. FINDINGS: Normal soft tissue structures. Normal calvarium. Normal size ventricles and extra-axial spaces for the patient''s age. Normal white matter tracts of the cerebral hemispheres. Normal basal ganglia and thalami. Normal brainstem. Normal cerebellum. There is no intracranial hemorrhage. There are no findings of an acute ischemic infarction. Normal visualized paranasal sinuses. CT/Brain/Head without Contrast IMPRESSION: Normal unenhanced CT scan of the brain. Electronically Signed: Bharati Maya MD at 19:00 EDT Reading Location ID and State: [id number] / Tel , Service support ,
--- NOTE | 2023-04-22 17:56 | EKG12_ITS ---
Test Reason : HYPERTENSION Blood Pressure : / mmHG Vent. Rate : 071 BPM Atrial Rate : 000 BPM P-R Int : 000 ms QRS Dur : 084 ms QT Int : 416 ms P-R-T Axes : 000 -14 112 degrees QTc Int : 452 ms Atrial fibrillation Minimal voltage criteria for LVH, may be normal variant ( [place] product ) ST & T wave abnormality, consider anterolateral ischemia Abnormal ECG Confirmed by BERNARD HELMS, RAKESH ([id number]), scientific publications editor DAINA VASQUEZ ([id number]) on 04/23/2023 9:05:13 AM Referred By: YUN Confirmed By:RAKESH WAGNER MD
[2023-04-22] MEDS: Metoprolol Tartrate 25 MG Tablet 75 MG PO (18:11)
[2023-04-22] MEDS: 0.9% Normal Saline 1,000 ML 999 ML IV (18:13)
[2023-04-22 18:25] LABS: Absolute Lymphocyte Count 1.77 X10^3/uL (0.83-4.51); Basophil# 0.03 X10^3/uL; Basophil% 0.4 % (0-1); Eosinophil# 0.17 X10^3/uL; Eosinophils% 2.2 % (0-5); Hematocrit 36.3 % (37-47); Hemoglobin 11.6 g/dL (12.0-15.0); Lymphocyte # 1.77 X10^3/ul (0.83-4.51); Mean Corpuscular Hgb 28.9 pg (27.0-32.0); Mean Corpuscular Volume 90.3 fL (81-99); Mean Platelet Vol. 12.7 fl (6.2-12.0); Monocyte# 0.69 X10^3/uL; NRBC Flagged by Analyzer 0 % (0-5); Neutrophil # 4.99 X10^3/uL (2.7-7.7); Platelet Count 181 K/mm3 (150-450); RBC Distribution Width CV 13.2 % (11.6-14.6); RBC Distribution Width SD 43.6 fl (35.1-43.9); Red Blood Count 4.02 M/mm3 (4.2-5.4); White Blood Count 7.7 K/mm3 (4.4-11.0)
--- NOTE | 2023-04-22 18:35 | RAD_ITS ---
INDICATION: htn EXAMINATION/TECHNIQUE: X-RAY - XR Chest 1 View COMPARISON: 04/05/2023. FINDINGS: LINES/DEVICES: None. LUNGS: No consolidation, edema or effusion. No pneumothorax. MEDIASTINUM AND CARDIOVASCULAR STRUCTURES: Cardiac silhouette not enlarged. Central airways and mediastinal contour are unremarkable. BONES AND SOFT TISSUES: Unremarkable. RAD/Chest 1 View (Portable) IMPRESSION: No radiographic evidence of acute cardiopulmonary disease. Electronically Signed: Bharati Maya MD at 19:01 EDT Reading Location ID and State: [id number] / Tel , Service support ,
[2023-04-22 18:42] LABS: ALB/GLOB Ratio 1.1 RATIO (0.9-2.4); AST(SGOT) 40 U/L (15-37); Alanine Aminotransfer ALT/SGPT 61 U/L (13-56); Albumin, Serum 3.6 g/dL (3.2-5.0); Alkaline Phosphatase 102 U/L (45-117); Anion Gap 6 (5-15); BUN 11 mg/dL (7-18); BUN/Creat Ratio 13.2 RATIO (10-20); Calcium,Total 9.5 mg/dL (8.5-10.1); Chloride 106 mmol/L (98-107); Creatinine, Serum 0.83 mg/dL (0.55-1.02); EST Glomerular Filtration Rate 70 mL/min (>60); Est Glom Filt Rate - Afr Amer 84 mL/min (>60); Estimated Creatinine Clearance 37.54 ml/min; Globulin 3.3 g/dL (2.2-4.2); Glucose 125 mg/dL (74-106); Potassium 4.1 mmol/L (3.5-5.1); Protein, Total 6.9 g/dL (6.4-8.2); Sodium Level 139 mmol/L (136-145); Troponin-I HS 52 pg/mL (3.0-54.0)
[2023-04-22 19:53] VITALS: BP 174/95
--- NOTE | 2023-04-22 20:04 | EDS_ITS ---
HPI History of Present Illness Chief Complaint: Hypertension Narrative Narrative: 82-year-old female presenting with headache. She states her blood pressures been elevated today. She has taken her regular blood pressure medicine as prescribed. She states she takes 75 mg of metoprolol tartrate twice daily and losartan 100 mg daily. She states that she does have some light sensitivity and sound sensitivity. Denies any direct trauma. Patient is on Eliquis for history of A-fib. She does not have chest pain and shortness of breath but does feel generally weak. She states she has history of stroke in the past. [facility] Medical History Asthma Complaint of melena Diabetes mellitus, type 2 Essential hypertension Former smoker GERD (gastroesophageal reflux disease) History of Lundberg's palsy History of blood transfusion History of cancer History of TIA (transient ischemic attack) Neck pain, bilateral Right atrial mass Stroke/cerebrovascular accident Home Medications multivitamin 1 tab PO DAILY 06/19/21 [History Last Taken Unknown] pantoprazole 40 mg tablet,delayed release 40 mg PO DAILY gerd #90 tabs 08/28/21 [Rx Last Taken Unknown] metformin 500 mg tablet 500 mg PO BID 02/15/22 [History Last Taken Unknown] metoprolol tartrate 50 mg tablet 75 mg PO BID 02/15/22 [History Last Taken Unkno wn] apixaban 2.5 mg tablet (Eliquis) 2.5 mg PO BID #180 tabs 02/21/22 [Rx Last Taken Unknown] atorvastatin 20 mg tablet 20 mg PO QHS 03/07/23 [History Last Taken Unknown] fluticasone furoate 100 mcg-vilanterol 25 mcg/dose inhalation powder (Breo Ellipta) 1 inh inhalation DAILY 03/07/23 [History Last Taken Unknown] losartan 100 mg tablet 100 mg PO DAILY 03/07/23 [History Last Taken Unknown] Allergy/AdvReac Type Severity Reaction Status Date / Time tetracycline Allergy Unknown anaphylaxis Verified 04/22/23 16:54 Penicillins Allergy Anaphylaxis Verified 04/22/23 16:54 Family History Mother Pancreatic cancer CAD (coronary artery disease) Father Cancer Lung cancer Brother Parkinson disease Surgical History H/O hemorrhoidectomy H/O rhinoplasty H/O: hysterectomy History of appendectomy History of bladder surgery History of cataract surgery History of surgery Social History Smoking Status: Former smoker how long ago did patient quit smokin+ years alcohol intake: never substance use type: does not use ROS ROS ED Constitutional Constitutional ED: Denies chills or fever(s) Eyes Eyes: Reports other Details: Light sensitivity ENT ENT ED: Reports other Details: Sound sensitivity Respiratory/Chest Respiratory/Chest: Denies cough or dyspnea Gastrointestinal Gastrointestinal: Denies abdominal pain, constipation or diarrhea Genitourinary Genitourinary ED: Denies dysuria or hematuria Musculoskeletal Musculoskeletal: Denies arthralgias or back pain Integumentary Denies abscess or Abrasions Neurologic Neurologic: Denies headache(s) or paresthesias EXAM Physical Exam Const Vital Signs: 04/22/23 16:52 04/22/23 17:09 04/22/23 19:53 Temperature 97 F L Temperature Source Temporal Pulse Rate 74 Respiratory Rate 18 Respiratory Effort Normal Non-Labored Respiratory Pattern Normal Blood Pressure 197/102 H 174/95 H Blood Pressure Mean 133 121 Pulse Ox 96 Oxygen Delivery Method Room Air Positive well nourished General Appearance ED: NAD; Negative for pallor HEENT Reports moist mucous membranes Eyes PERRL and EOMs intact bilaterally Chest Wall inspection of chest normal and palpation of chest normal Resp normal respiratory effort and clear to auscultation bilaterally Auscultation: Negative for rales, rhonchi or wheezes Cardio regular rate and regular rhythm GI normal to inspection, nondistended, normoactive bowel sounds Neuro oriented x3 and CN's II-XII intact bilaterally Sensorium / Orientation: alert Skin no rashes or lesions noted and no wounds General Skin Exam: Negative for jaundice or pallor MDM MDM MDM Narrative Medical decision making narrative: Patient presenting hypertension and headache. She is on Eliquis. She does not report any chest pain but does have generalized weakness. She is treated with Reglan and Benadryl. Differential includes intracranial hemorrhage, migraine, dehydration, electrode abnormalities, anemia, pneumonia. Will obtain a CT brain to rule out cranial hemorrhage. CBC to assess white blood cell count, hemoglobin and platelets. CMP to assess liver function, renal function, electrolytes. High-sensitivity troponin and EKG to assess for ischemia. Chest x-ray to rule out pneumonia. CBC and CMP are unremarkable. High-sensitivity troponin within normal limits at 52. EKG A-fib at a controlled ventricular rate of 71 bpm without sign of ischemic change. Chest x-ray shows no acute process on my interpretation. CT brain was negative. Patient reevaluated and feeling improved. I gave her her oral nightly dose of metoprolol. I recommend she follows up with her PCP to ensure resolution. Impression: 1. hypertension 2. Headache 3. Weakness Lab Data Labs: Laboratory Results - last 24 hr 04/22/23 04/22/23 18:15 18:15 WBC 7.7 RBC 4.02 L Hgb 11.6 L Hct 36.3 L MCV 90.3 MCH 28.9 MCHC 32.0 RDW Std Deviation 43.6 RDW Coeff of [place] 13.2 Plt Count 181 MPV 12.7 H Immature Gran % (Auto) 0.400 Neut % (Auto) 65.0 Lymph % (Auto) 23.0 [place] % (Auto) 9.0 Eos % (Auto) 2.2 Baso % (Auto) 0.4 Absolute Neuts (auto) 5.0 Absolute Lymphs (auto) 1.77 Nucleated RBC % 0 Sodium 139 Potassium 4.1 Chloride 106 Carbon Dioxide 27.0 Anion Gap 6 BUN 11 Creatinine 0.83 Estim Creat Clear Calc 37.54 Est GFR (MDRD) Af Amer 84 Est GFR (MDRD) Non-Af 70 BUN/Creatinine Ratio 13.2 Glucose 125 H Calcium 9.5 Total Bilirubin 0.50 AST 40 H ALT 61 H Alkaline Phosphatase 102 Troponin I High Sens 52 Total Protein 6.9 Albumin 3.6 Globulin 3.3 Albumin/Globulin Ratio 1.1 Radiography Diagnostic Testing: Clinical Impression(s) from Imaging Studies Brain CT 04/22/23 17:55 IMPRESSION: Normal unenhanced CT scan of the brain. Electronically Signed: Bharati Maya MD at 19:00 EDT Reading Location ID and State: [id number] / Tel , Service support , Chest X-Ray 04/22/23 18:35 IMPRESSION: No radiographic evidence of acute cardiopulmonary disease. Electronically Signed: Bharati Maya MD at 19:01 EDT , Discharge Plan Triage Chief Complaint: Hypertension ED Provider: Gabe Foster Dx/Rx/DC Orders Prescriptions: No Action pantoprazole 40 mg tablet,delayed release (DR/EC) 40 mg PO DAILY Qty: 90 3RF multivitamin Tablet 1 tab PO DAILY metoprolol tartrate 50 mg tablet 75 mg PO BID metformin 500 mg tablet 500 mg PO BID losartan 100 mg tablet 100 mg PO DAILY atorvastatin 20 mg tablet 20 mg PO QHS Label Comments: TAKE 1 TABLET BY MOUTH ONCE DAILY fluticasone furoate-vilanterol [Breo Ellipta] 100-25 mcg/dose blister with device 1 inh inhalation DAILY Label Comments: INHALE 1 PUFF BY MOUTH ONCE DAILY DIRECTED Eliquis 2.5 mg tablet 2.5 mg PO BID Qty: 180 2RF Primary Care Provider: Terell Scott Referrals: Terell Scott MD [Primary Care Provider] -
== END 2023-04-22 20:31 | disposition home or self-care (01) ==
PROVIDERS: Emergency Provider Student in an Organized Health Care Education/Training Program; PCP Family Medicine; Visit Provider Student in an Organized Health Care Education/Training Program
DX: I10 Essential (primary) hypertension (principal); I48.91 Unspecified atrial fibrillation; E11.9 Type 2 diabetes mellitus without complications; R53.1 Weakness; Z79.01 Long term (current) use of anticoagulants; Z86.73 Personal history of transient ischemic attack (TIA), 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 deficits; Z79.84 Long term (current) use of oral hypoglycemic drugs; Z79.899 Other long term (current) drug therapy; Z87.891 Personal history of nicotine dependence
CPT/HCPCS: 70450; 71045; 80053; 84484; 85025; 93005; 96361; 96374; 96375; 99282; J7030; A4216

== ENCOUNTER → 2023-06-19 | Outpatient (CLI) | payer MEDICARE, MEDICAID, SELFPAY ==
[2023-06-19 10:38] LABS: ALB/GLOB Ratio 1.1 RATIO (0.9-2.4); AST(SGOT) 19 U/L (15-37); Alanine Aminotransfer ALT/SGPT 59 U/L (13-56); Albumin, Serum 3.8 g/dL (3.2-5.0); Alkaline Phosphatase 101 U/L (45-117); Anion Gap 4 (5-15); BUN 11 mg/dL (7-18); BUN/Creat Ratio 11.7 RATIO (10-20); Calcium,Total 9.4 mg/dL (8.5-10.1); Chloride 109 mmol/L (98-107); Creatinine, Serum 0.94 mg/dL (0.55-1.02); EST Glomerular Filtration Rate 61 mL/min (>60); Est Glom Filt Rate - Afr Amer 73 mL/min (>60); Globulin 3.4 g/dL (2.2-4.2); Glucose 173 mg/dL (74-106); Potassium 4.3 mmol/L (3.5-5.1); Protein, Total 7.2 g/dL (6.4-8.2); Sodium Level 142 mmol/L (136-145); Thyroid Stim Hormone (TSH) 3.62 uIU/mL (0.358-3.74)
== END | disposition home or self-care (01) ==
LOC: MTLAB 07:01
PROVIDERS: PCP Family Medicine; Referring Provider Psychiatry & Neurology Neurology; Visit Provider Psychiatry & Neurology Neurology
DX: I10 Essential (primary) hypertension (principal); G31.84 Mild cognitive impairment of uncertain or unknown etiology
CPT/HCPCS: 36415; 80053; 84443

== ENCOUNTER 2023-07-30 16:00 | Emergency (ER) | payer MEDICARE, MEDICAID, SELFPAY ==
[2023-07-30 16:01] VITALS: BP 210/99; PULSE 72; RESP 18; TEMP 35.7; O2SAT 98
--- NOTE | 2023-07-30 16:17 | EX.ED.DYSGE1 ---
HPI <KAREN Milner - Last Filed: 07/30/23 17:15> History of Present Illness Chief Complaint: Wound Check Narrative Narrative: Patient presenting today for evaluation due to pruritic bug bites on her bilateral legs that she would like to be evaluated. She reports that she has had these for the past 3 days and they are located behind her right knee, to her right calf, and to her left calf. She also reports that her ankles seem to be swollen today. She denies any chest pain or shortness of breath. She denies any fever or chills PFS <KAREN Milner - Last Filed: 07/30/23 17:15> [facility] Medical History Asthma Complaint of melena Diabetes mellitus, type 2 Essential hypertension Former smoker GERD (gastroesophageal reflux disease) History of Lundberg's palsy History of blood transfusion History of cancer History of TIA (transient ischemic attack) Neck pain, bilateral Right atrial mass Stroke/cerebrovascular accident Home Medications multivitamin 1 tab PO DAILY 06/19/21 [History Last Taken Unknown] pantoprazole 40 mg tablet,delayed release 40 mg PO DAILY gerd #90 tabs 08/28/21 [Rx Last Taken Unknown] metformin 500 mg tablet 500 mg PO BID 02/15/22 [History Last Taken Unknown] metoprolol tartrate 50 mg tablet 75 mg PO BID 02/15/22 [History Last Taken Unknown] apixaban 2.5 mg tablet (Eliquis) 2.5 mg PO BID #180 tabs 02/21/22 [Rx Last Taken Unknown] atorvastatin 20 mg tablet 20 mg PO QHS 03/07/23 [History Last Taken Unknown] fluticasone furoate 100 mcg-vilanterol 25 mcg/dose inhalation powder (Breo Ellipta) 1 inh inhalation DAILY 03/07/23 [History Last Taken Unknown] losartan 100 mg tablet 100 mg PO DAILY 03/07/23 [History Last Taken Unknown] Allergy/AdvReac Type Severity Reaction Status Date / Time Penicillins Allergy Severe Anaphylaxis Verified 07/30/23 16:01 tetracycline Allergy Severe anaphylaxis Verified 07/30/23 16:01 Family History Mother Pancreatic cancer CAD (coronary artery disease) Father Cancer Lung cancer Brother Parkinson disease Surgical History H/O hemorrhoidectomy H/O rhinoplasty H/O: hysterectomy History of appendectomy History of bladder surgery History of cataract surgery History of surgery Social History Smoking Status: Former smoker how long ago did patient quit smokin+ years alcohol intake: never substance use type: does not use ROS <KAREN Minler - Last Filed: 07/30/23 17:15> ROS ED Constitutional Constitutional ED: Denies chills or fever(s) Cardiovascular Cardiovascular: Denies chest pain or palpitations Respiratory/Chest Respiratory/Chest: Denies cough or dyspnea Gastrointestinal Gastrointestinal: Denies abdominal pain, nausea or vomiting Musculoskeletal Musculoskeletal: Denies arthralgias or myalgias Integumentary Denies abscess or Abrasions Neurologic Neurologic: Denies weakness EXAM <KAREN Milner - Last Filed: 07/30/23 17:15> Physical Exam Const Vital Signs: 07/30/23 16:01 07/30/23 16:21 Temperature 96.3 F L Temperature Source Temporal Pulse Rate 72 Respiratory Rate 18 Blood Pressure 210/99 H 165/66 H Blood Pressure Mean 136 99 Pulse Ox 98 Oxygen Delivery Method Room Air Positive well nourished, well developed and no apparent distress General Appearance ED: well developed HEENT Reports normocephalic and head/scalp atraumatic Mouth ED: Yes moist mucous membranes normal Eyes PERRL and EOMs intact bilaterally Neck full ROM and supple Chest Wall inspection of chest normal Resp normal respiratory effort and clear to auscultation bilaterally Cardio regular rate and regular rhythm GI soft to palpation, non-tender, non-distended and no masses Back/Spine normal ROM and normal to inspection Extremity normal to inspection and full ROM Extremity Narrative: No pitting edema, DP pulse 2+ and equal bilaterally, good capillary refill, sensation intact. Neuro oriented x3, CN's II-XII intact bilaterally, moves all extremities, no focal motor deficits and no sensory deficits noted Sensorium / Orientation: awake and alert Psych mental status grossly normal and thought process normal Skin no wounds Skin Narrative: Scattered healing pruritic small papules behind the right knee, 1 or 2 to the medial aspect of the right calf, 1 to the lateral aspect of the left lower leg. No fluctuance, warmth, or surrounding erythema. <Dr. Gerardo Gupta MD - Last Filed: 07/30/23 20:03> Physical Exam Const Vital Signs: 07/30/23 16:01 07/30/23 16:21 Temperature 96.3 F L Temperature Source Temporal Pulse Rate 72 Respiratory Rate 18 Blood Pressure 210/99 H 165/66 H Blood Pressure Mean 136 99 Pulse Ox 98 Oxygen Delivery Method Room Air MDM <KAREN Milner - Last Filed: 07/30/23 17:15> [facility] Narrative Medical decision making narrative: Patient presenting requesting to have what she thinks are bug bites evaluated on her legs that she first noticed 3 days ago. She is well-appearing and in no acute distress, initially she is hypertensive, but repeat blood pressure is much improved. She has pruritic healing papules to the back of her right knee with 1 or 2 scattered to the right calf and 1 to the left leg. No signs of infection. She feels that her ankles are swollen, I am not appreciating any edema here. She has been reassured, she can apply [id number] itch cream as needed. She will be discharged home in stable condition and is comfortable with plan. She is to follow-up with PCP. <Dr. Gerardo Gupta MD - Last Filed: 07/30/23 20:03> [facility] Narrative Medical decision making narrative: Patient presenting requesting to have what she thinks are bug bites evaluated on her legs that she first noticed 3 days ago. She is well-appearing and in no acute distress, initially she is hypertensive, but repeat blood pressure is much improved. She has pruritic healing papules to the back of her right knee with 1 or 2 scattered to the right calf and 1 to the left leg. No signs of infection. She feels that her ankles are swollen, I am not appreciating any edema here. She has been reassured, she can apply [id number] itch cream as needed. She will be discharged home in stable condition and is comfortable with plan. She is to follow-up with PCP. I have personally performed a face to face assessment of the patient and have reviewed the ROBYN Note. I performed a substantive portion of the visit including all aspects of the following. My gomez findings include: History is remarkable for 4 wounds on her legs. Patient thinks her bed bug bites. There are few noted on each extremity. She denies fever, chills night sweats. She denies cardiac respiratory symptoms. Denies GI or symptoms. Exam is remarkable for areas of excoriation. There is no evidence of infection. Unable to determine whether these are bedbugs or folliculitis. Medical Decision Making patient has a nonsignificant rash. Difficult to ascertain what this may be because patient has scratched the area with areas of excoriation. There is no evidence of infection. Other additions or changes: [None] Discharge Plan Triage Chief Complaint: Wound Check ED Midlevel Provider: Clair Mir ED Provider: Gerardo Gupta Dx/Rx/DC Orders Clinical Impression: Bug bite, Hypertension Instructions: Hypertension Dc, ED Animal Bite (General) Prescriptions: No Action pantoprazole 40 mg tablet,delayed release (DR/EC) 40 mg PO DAILY Qty: 90 3RF multivitamin Tablet 1 tab PO DAILY metoprolol tartrate 50 mg tablet 75 mg PO BID metformin 500 mg tablet 500 mg PO BID losartan 100 mg tablet 100 mg PO DAILY atorvastatin 20 mg tablet 20 mg PO QHS Patient Comments: TAKE 1 TABLET BY MOUTH ONCE DAILY fluticasone furoate-vilanterol [Breo Ellipta] 100-25 mcg/dose blister with device 1 inh inhalation DAILY Patient Comments: INHALE 1 PUFF BY MOUTH ONCE DAILY DIRECTED Eliquis 2.5 mg tablet 2.5 mg PO BID Qty: 180 2RF Primary Care Provider: Terell Scott Referrals: Terell Scott MD [Primary Care Provider] - 5-7 Days Activity Restrictions/Additional Instructions: Please follow-up with your PCP and return for any worsening of symptoms. Disposition Disposition: Home, Self Care Discharge Date/Time: 07/30/23 16:59
[2023-07-30 16:21] VITALS: BP 165/66; BMI 32.5
== END 2023-07-30 16:59 | disposition home or self-care (01) ==
LOC: ED 16:55
PROVIDERS: Emergency Provider Emergency Medicine; PCP Family Medicine; Visit Provider Emergency Medicine
DX: S80.861A Insect bite (nonvenomous), right lower leg, initial encounter (principal); E11.9 Type 2 diabetes mellitus without complications; Z87.891 Personal history of nicotine dependence; I10 Essential (primary) hypertension; Z79.899 Other long term (current) drug therapy; Z79.51 Long term (current) use of inhaled steroids; Z79.84 Long term (current) use of oral hypoglycemic drugs; Z79.01 Long term (current) use of anticoagulants; Z86.73 Personal history of transient ischemic attack (TIA), 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 deficits; S80.862A Insect bite (nonvenomous), left lower leg, initial encounter; W57.XXXA Bitten or stung by nonvenomous insect and other nonvenomous arthropods, initial encounter
CPT/HCPCS: 99282

== ENCOUNTER → 2023-10-04 | Outpatient (CLI) | payer MEDICARE, MEDICAID, SELFPAY ==
--- NOTE | 2023-10-04 17:00 | MRI_ITS ---
STUDY: MRI BRAIN WITH AND WITHOUT CONTRAST REASON FOR EXAM: Female, 83 years old. TIA TECHNIQUE: Standardized multiplanar fat and water weighted pulse sequences were obtained. IV 15 CC CLARISCAN was administered for the contrast portion of the examination. COMPARISON: CT brain April 22, 2023. MR brain April 19, 2021 FINDINGS: Normal size of the ventricles and extra-axial spaces for the patient''s age. Normal white matter tracts of the supratentorial brain. There is no evidence for recent intracranial ischemia or other cause of cytotoxic edema on diffusion weighted imaging (DWI). Normal bilateral basal ganglia. Normal thalami. There is no extra-axial fluid accumulation. Normal flow voids within the major intracranial circulation suggesting patency by spin echo criteria. Normal venous enhancement. There is no enhancing intra-axial or extra-axial abnormality. Normal sella turcica, pituitary gland, infundibular stalk, optic chiasm and hypothalamus. Normal tectal plate and pineal gland. Normal midbrain, teresa and medulla. Normal cerebellum. Normal basal cisterns. Normal bilateral temporal bones. Normal bilateral internal auditory canals. No demonstrated orbital abnormality, within the constraints of a routine brain study. Normal visualized paranasal sinuses. Normal calvarium and skull base. Normal visualized soft tissue structures. Normal visualized upper cervical spine. MRI/Brain W/WO Contrast IMPRESSION: Normal unenhanced and enhanced MRI of the brain. Electronically Signed: Juan Francisco Bates MD at 19:18 EST ,
[2023-10-04 17:41] LABS: CREATININE FINGERSTICK < 1.0 mg/dL (0.55-1.02); EGFR FINGERSTICK > 60.0000 mL/min (>60)
== END | disposition home or self-care (01) ==
LOC: MRI 16:58
PROVIDERS: PCP Family Medicine; Referring Provider Psychiatry & Neurology Neurology; Visit Provider Psychiatry & Neurology Neurology
DX: G45.9 Transient cerebral ischemic attack, unspecified (principal)
CPT/HCPCS: 70553; A9575

== ENCOUNTER 2024-02-25 14:36 | Emergency (ER) | payer MEDICARE, MEDICAID, SELFPAY ==
[2024-02-25 14:36] VITALS: BP 158/77; PULSE 101; RESP 20; TEMP 37.6; O2SAT 97
[2024-02-25 15:52] VITALS: BMI 31.5
[2024-02-25] MEDS: Ipratropium/Albuterol Sulfate 3 ML AMPUL.NEB INHALATION (15:59)
[2024-02-25 16:00] VITALS: PULSE 113; RESP 22
[2024-02-25] MEDS: Albuterol 2.5 MG/3 ML VIAL.NEB. INHALATION (16:00)
[2024-02-25 16:13] LABS: Bacteria 0 SEEN /hpf (None Seen); Mucous, Urine 0 SEEN /hpf (<or=2+); Red Blood Cells-Urine 0 SEEN /hpf (0-5); Squamous Epithelial Cells - UA 0 SEEN /hpf (5-10); White Blood Cells 0 SEEN /hpf (0-5)
[2024-02-25] MEDS: 0.9% Normal Saline (1000mL) 1,000 ML 1000 ML IV (16:20)
[2024-02-25] MEDS: MethylPREDNISolone 125 MG/2 ML Vial IV (16:20)
[2024-02-25] MEDS: BENZOCAINE/MENTHOL 1 LOZENGE MUCOUS MEM (16:21)
[2024-02-25 16:23] LABS: Absolute Lymphocyte Count 0.73 X10^3/uL (0.83-4.51); Absolute Neutrophil Count 6.2 X10^3/uL (2.0-7.7); Basophil# 0.03 X10^3/uL; Basophil% 0.4 % (0-1); Eosinophil# 0.02 X10^3/uL; Eosinophils% 0.2 % (0-5); Hematocrit 37.7 % (37-47); Hemoglobin 12.5 g/dL (12.0-15.0); Lymphocyte # 0.73 X10^3/ul (0.83-4.51); Mean Corp Hgb Conc 33.2 g/dL (32-36); Mean Corpuscular Hgb 29.1 pg (27.0-32.0); Mean Corpuscular Volume 87.9 fL (81-99); Mean Platelet Vol. 12.7 fl (6.2-12.0); Monocyte# 1.06 X10^3/uL; Monocyte% 13.1 % (0-10); NRBC Flagged by Analyzer 0 % (0-5); Neutrophil # 6.17 X10^3/uL (2.7-7.7); Neutrophil % 76.3 % (47-70); Platelet Count 224 K/mm3 (150-450); RBC Distribution Width CV 12.9 % (11.6-14.6); RBC Distribution Width SD 41.6 fl (35.1-43.9); Red Blood Count 4.29 M/mm3 (4.2-5.4); White Blood Count 8.1 K/mm3 (4.4-11.0)
[2024-02-25 16:25] LABS: Color, Urine Yellow (Yellow); Glucose, Dipstick 1000 mg/dl (Normal); Ketone-Dipstick Negative (Negative); Leukocyte Esterase-Dipstick Negative /ul (Negative); Nitrite-Dipstick Negative (Negative); Occult Blood-Urine 25 /ul (Negative); Protein-Dipstick 30 mg/dl (Negative); Specific Gravity, Urine 1.005 (1.002-1.030); Urine Bilirubin Dipstick Negative (Negative); Urine Clarity Clear (Clear); Urine Urobilinogen Normal (Normal)
--- NOTE | 2024-02-25 16:25 | RAD_ITS ---
STUDY: X-RAY CHEST REASON FOR EXAM: Female, 83 years old. cough TECHNIQUE: AP portable COMPARISON: April 22, 2023. FINDINGS: The lungs are clear and expanded. There is no demonstrated pleural abnormality. Normal size heart. Normal mediastinum and glenn. Normal visualized pulmonary arteries. Mildly calcified aortic arch and descending thoracic aorta. Normal visualized thoracic spine. Normal visualized ribs, clavicles, and shoulders. There is no demonstrated abnormality of the visualized soft tissue structures of the upper abdomen. RAD/Chest 1 View (Portable) IMPRESSION: No acute cardiopulmonary pathology Electronically Signed: Fazal Stout MD at 16:59 EDT ,
[2024-02-25 16:42] LABS: Anion Gap 8 (5-15); BUN 7 mg/dL (7-18); Calcium,Total 9.1 mg/dL (8.5-10.1); Chloride 97 mmol/L (98-107); Creatinine, Serum 1.16 mg/dL (0.55-1.02); EST Glomerular Filtration Rate 47 mL/min (>60); Est Glom Filt Rate - Afr Amer 57 mL/min (>60); Estimated Creatinine Clearance 32.73 ml/min; Glucose 270 mg/dL (74-106); Potassium 3.8 mmol/L (3.5-5.1); Sodium Level 129 mmol/L (136-145)
--- NOTE | 2024-02-25 16:47 | EDS_ITS ---
HPI History of Present Illness Chief Complaint: Weakness Narrative Narrative: 83-year-old female presenting with multiple complaints. She states that about a month ago she developed a headache and then fevers and chills as well as rhinorrhea and cough. She initially did not see anybody for this. She never checked checked her temperature but she states she believes she had a fever. The symptoms have been ongoing and she has a sore throat as well as nausea is able to drink fluids but not eating very well. She went to urgent care initially about a week ago and would due to ongoing symptoms was treated with a Z-Cayetano. She states she was tested for COVID and influenza as well as RSV but this was 2 weeks after her symptoms. No chest x-ray was checked but they presumed it to be pneumonia as we gave her a Z-Cayetano. Patient has a little bit of diarrhea and denies abdominal pain but is nauseous and still coughing. She has a history of asthma she states since . [facility] Medical History Asthma Complaint of melena Diabetes mellitus, type 2 Essential hypertension Former smoker GERD (gastroesophageal reflux disease) History of Lundberg's palsy History of blood transfusion History of cancer History of TIA (transient ischemic attack) Neck pain, bilateral Right atrial mass Stroke/cerebrovascular accident Transient ischemic attack (03/2021) Home Medications multivitamin 1 tab PO DAILY 06/19/21 [History Last Taken Unknown] pantoprazole 40 mg tablet,delayed release 40 mg PO DAILY gerd #90 tabs 08/28/21 [Rx Last Taken Unknown] metformin 500 mg tablet 500 mg PO BID 02/15/22 [History Last Taken Unknown] apixaban 2.5 mg tablet (Eliquis) 2.5 mg PO BID #180 tabs 02/21/22 [Rx Last Taken Unknown] atorvastatin 20 mg tablet 20 mg PO QHS 03/07/23 [History Last Taken Unknown] fluticasone furoate 100 mcg-vilanterol 25 mcg/dose inhalation powder (Breo Ellipta) 1 inh inhalation DAILY 03/07/23 [History Last Taken Unknown] losartan 100 mg tablet 100 mg PO DAILY 03/07/23 [History Last Taken Unknown] amlodipine 10 mg tablet 10 mg PO DAILY #90 tabs 11/21/23 [Rx Last Taken Unknown] metoprolol tartrate 50 mg tablet 50 mg PO BID 11/21/23 [History Last Taken Unknown] benzocaine 15 mg-menthol 2.6 mg lozenges (Cepacol Sore Throat (benzocaine- menthol)) 1 cee mucous membrane Q2H PRN sore throat #16 ea 02/25/24 [Rx Last Taken Unknown] ondansetron 4 mg disintegrating tablet 4 mg PO Q8H PRN PRN Nausea #30 tabs 02/25/24 [Rx Last Taken Unknown] prednisone 50 mg tablet 50 mg PO DAILY #5 tabs 02/25/24 [Rx Last Taken Unknown] Allergy/AdvReac Type Severity Reaction Status Date / Time Penicillins Allergy Severe Anaphylaxis Verified 02/25/24 14:39 tetracycline Allergy Severe anaphylaxis Verified 02/25/24 14:39 Family History Mother Pancreatic cancer CAD (coronary artery disease) Father Cancer Lung cancer Brother Parkinson disease Surgical History H/O hemorrhoidectomy H/O rhinoplasty H/O: hysterectomy History of appendectomy History of bladder surgery History of cataract surgery History of surgery Social History Smoking Status: Former smoker how long ago did patient quit smokin+ years alcohol intake: never substance use type: does not use ROS ROS ED Constitutional Constitutional ED: Denies chills, fever(s) or sweats Eyes Eyes: Denies blurry vision or change in vision ENT ENT ED: Reports rhinorrhea and sore throat; Denies ear pain Cardiovascular Cardiovascular: Denies chest pain, palpitations or racing heartbeat Respiratory/Chest Respiratory/Chest: Reports cough; Denies dyspnea or sputum Gastrointestinal Gastrointestinal: Reports nausea; Denies abdominal pain, constipation, diarrhea or vomiting Genitourinary Genitourinary ED: Denies dysuria, hematuria or urinary frequency Musculoskeletal Musculoskeletal: Reports myalgias; Denies arthralgias or neck pain Integumentary Denies abscess, Abrasions or rash Neurologic Neurologic: Reports headache(s); Denies paresthesias or weakness Psychiatric Psychiatric: Denies anxiety, depression, suicidal ideation or suicidal thoughts Endocrine Endocrinology: Denies polydipsia or polyuria EXAM Physical Exam Const Vital Signs: 02/25/24 14:36 02/25/24 15:15 02/25/24 16:00 Temperature 99.6 F H Temperature Source Temporal Pulse Rate 101 H 113 H Respiratory Rate 20 H 22 H Respiratory Effort Normal Non-Labored Respiratory Pattern Normal Tachypnea Blood Pressure 158/77 H Blood Pressure Mean 104 Pulse Ox 97 Oxygen Delivery Method Room Air Positive well nourished General Appearance ED: NAD; Negative for pallor HEENT Reports dry mucous membranes HEENT Narrative: No exudates. No tonsillar swelling. No stridor. Mouth ED: Yes dry mucous membranes Mouth: dry mucous membranes Eyes PERRL and EOMs intact bilaterally Chest Wall inspection of chest normal Resp normal respiratory effort Auscultation: wheezes scattered wheezes Cardio regular rate and regular rhythm GI normal to inspection, nondistended, normoactive bowel sounds Neuro CN's II-XII intact bilaterally Skin no rashes or lesions noted General Skin Exam: Negative for jaundice or pallor MDM MDM MDM Narrative Medical decision making narrative: Patient presenting with multiple symptoms. She has had cough and congestion for weeks and she is not eating very well. Differential includes pneumonia, dehydration, electrolyte abnormalities, UTI, anemia. CBC obtained to assess white blood cell count, hemoglobin, platelets. BMP to assess renal function electrolytes, glucose. Urinalysis to assess for UTI. Chest x-ray to rule out pneumonia. Patient medicated with Zofran and given IV fluids. She was given a Cepacol lozenge for her sore throat. She was given breathing treatments that she has some small scattered wheezes and she is given some Solu-Medrol 125 mg. CBC shows normal white blood cell count of 8.1. Hemoglobin 12.5. Platelets normal 224. Creatinine elevated today at 1.16. GFR is 47. Again patient was given a liter of normal saline. Urinalysis negative for infection. Chest x-ray my interpretation shows no acute process. Radiologist interprets this and agrees. Reevaluation at 4:51 PM. Patient feeling much better her nausea is better she is breathing better she reports I feel so much better. Reviewed her lab work with her and recommended she drink more fluids and she has to eat at home. She is given Zofran for home to help with nausea. She is given Cepacol lozenges for her sore throat. She is given a prednisone burst and albuterol for home. Impression: 1. Dehydration 2. Nausea 3. Asthma exacerbation 4. Weakness Lab Data Attestation: I reviewed the patient's lab results. Labs: Laboratory Results - last 24 hr 02/25/24 16:00 WBC 8.1 RBC 4.29 Hgb 12.5 Hct 37.7 MCV 87.9 MCH 29.1 MCHC 33.2 RDW Std Deviation 41.6 RDW Coeff of [place] 12.9 Plt Count 224 MPV 12.7 H Immature Gran % (Auto) 1.000 H Neut % (Auto) 76.3 H Lymph % (Auto) 9.0 L [place] % (Auto) 13.1 H Eos % (Auto) 0.2 Baso % (Auto) 0.4 Absolute Neuts (auto) 6.2 Absolute Lymphs (auto) 0.73 L Nucleated RBC % 0 Sodium 129 L Potassium 3.8 Chloride 97 L Carbon Dioxide 24.0 Anion Gap 8 BUN 7 Creatinine 1.16 H Estim Creat Clear Calc 32.73 Est GFR (MDRD) Af Amer 57 L Est GFR (MDRD) Non-Af 47 L BUN/Creatinine Ratio 6.0 L Glucose 270 H Calcium 9.1 Urine Color Yellow Urine Clarity Clear Urine pH 7.0 Ur Specific [place] 1.005 Urine Protein 30 H Urine Glucose (UA) 1000 H Urine Ketones Negative Urine Occult Blood 25 H Urine Nitrite Negative Urine Bilirubin Negative Urine Urobilinogen Normal Ur Leukocyte Esterase Negative Urine RBC 0 SEEN Urine WBC 0 SEEN Ur Squamous Epith Cells 0 SEEN Urine Bacteria 0 SEEN Urine Mucus 0 SEEN Radiography Diagnostic Testing: Clinical Impression(s) from Imaging Studies Chest X-Ray 02/25/24 16:25 IMPRESSION: No acute cardiopulmonary pathology Electronically Signed: Fazal Stout MD at 16:59 EDT , Discharge Plan Triage Chief Complaint: Weakness ED Provider: Gabe Foster Dx/Rx/DC Orders Instructions: ED Asthma, Acute (Adult), ED Dehydration (Adult), ED Weakness (Uncertain Cause) Prescriptions: New ondansetron 4 mg tablet,disintegrating 4 mg PO Q8H PRN PRN (Reason: Nausea) Qty: 30 0RF Cepacol Sore Throat (janneth-men) 15-2.6 mg lozenge 1 cee mucous membrane Q2H PRN (Reason: sore throat) Qty: 16 0RF prednisone 50 mg tablet 50 mg PO DAILY Qty: 5 0RF No Action pantoprazole 40 mg tablet,delayed release (DR/EC) 40 mg PO DAILY Qty: 90 3RF multivitamin Tablet 1 tab PO DAILY metformin 500 mg tablet 500 mg PO BID metoprolol tartrate 50 mg tablet 50 mg PO BID losartan 100 mg tablet 100 mg PO DAILY atorvastatin 20 mg tablet 20 mg PO QHS Patient Comments: TAKE 1 TABLET BY MOUTH ONCE DAILY fluticasone furoate-vilanterol [Breo Ellipta] 100-25 mcg/dose blister with device 1 inh inhalation DAILY Patient Comments: INHALE 1 PUFF BY MOUTH ONCE DAILY DIRECTED amlodipine 10 mg tablet 10 mg PO DAILY Qty: 90 3RF Eliquis 2.5 mg tablet 2.5 mg PO BID Qty: 180 2RF Primary Care Provider: Terell Scott Referrals: Terell Scott MD [Primary Care Provider] - Disposition Disposition: Home, Self Care
[2024-02-25] MEDS: Albuterol Sulfate 8 gm Inhaler (60 puffs) 2 PUFF INHALATION (18:12)
== END 2024-02-25 18:54 | disposition home or self-care (01) ==
PROVIDERS: Emergency Provider Student in an Organized Health Care Education/Training Program; PCP Family Medicine; Visit Provider Student in an Organized Health Care Education/Training Program
DX: J45.901 Unspecified asthma with (acute) exacerbation (principal); E11.9 Type 2 diabetes mellitus without complications; E86.0 Dehydration; R19.7 Diarrhea, unspecified; J02.9 Acute pharyngitis, unspecified; Z87.891 Personal history of nicotine dependence; R05.9 Cough, unspecified; I10 Essential (primary) hypertension; K21.9 Gastro-esophageal reflux disease without esophagitis; Z86.73 Personal history of transient ischemic attack (TIA), 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 deficits; Z79.84 Long term (current) use of oral hypoglycemic drugs; Z79.01 Long term (current) use of anticoagulants; Z79.899 Other long term (current) drug therapy
CPT/HCPCS: 71045; 80048; 81001; 85025; 94640; 96361; 96374; 99282; J7030; A4216

== ENCOUNTER 2024-06-25 15:22 | Emergency (ER) | payer MEDICARE, MEDICAID, SELFPAY ==
[2024-06-25] VITALS (12 sets, daily range): BP systolic 116–156; BP diastolic 59–88; PULSE 65–94; RESP 12–33; TEMP 36.1–36.4; O2SAT 98–99; BMI 32.0
--- NOTE | 2024-06-25 15:23 | NURSING ---
NO OLD EKG
--- NOTE | 2024-06-25 15:38 | EKG12_ITS ---
Test Reason : Blood Pressure : / mmHG Vent. Rate : 069 BPM Atrial Rate : 000 BPM P-R Int : 000 ms QRS Dur : 082 ms QT Int : 376 ms P-R-T Axes : 000 -06 096 degrees QTc Int : [address] & T wave abnormality, consider anterolateral ischemia Abnormal ECG Confirmed by Gerald Mckeon ([id number]), publishing editor CARLOS HARRIS ([id number]) on 06/26/2024 8:19:14 AM Referred By: Confirmed By:Gerald Mckeon
--- NOTE | 2024-06-25 15:40 | ED.VIS.CHEST ---
HPI History of Present Illness Chief Complaint: Chest Pain Narrative Narrative: 84-year-old female past medical history of TIA and stroke, atrial fibrillation, on Eliquis, hypertension, presents with 5 days of multiple somatic complaints ranging from left-sided neck pain and left-sided arm pain with chest pain. She felt like her heart was pounding out of her chest. She states she has a little bit of a headache as well. It is the entire left side of her neck and arm and chest. She denies any exacerbating or alleviating factors. [facility] Medical History (Updated 06/25/24 @ 18:05 by Guille Feng MD) Neck pain, bilateral History of TIA (transient ischemic attack) Stroke/cerebrovascular accident Essential hypertension Complaint of melena Transient ischemic attack (03/2021) History of Lundberg's palsy GERD (gastroesophageal reflux disease) History of cancer History of blood transfusion Right atrial mass Former smoker Asthma Diabetes mellitus, type 2 Home Medications ?Medication ?Instructions ?Recorded ?Last Taken ?Type multivitamin 1 tab PO DAILY 06/19/21 Unknown History pantoprazole 40 mg tablet,delayed 40 mg PO DAILY gerd #90 tabs 08/28/21 Unknown Rx release metformin 500 mg tablet 500 mg PO BID 02/15/22 Unknown History atorvastatin 20 mg tablet 20 mg PO QHS 03/07/23 Unknown History fluticasone furoate 100 1 inh inhalation DAILY 03/07/23 Unknown History mcg-vilanterol 25 mcg/dose inhalation powder (Breo Ellipta) losartan 100 mg tablet 100 mg PO DAILY 03/07/23 Unknown History amlodipine 10 mg tablet 10 mg PO DAILY #90 tabs 11/21/23 Unknown Rx metoprolol tartrate 50 mg tablet 50 mg PO BID 11/21/23 Unknown History benzocaine 15 mg-menthol 2.6 mg 1 cee mucous membrane Q2H PRN sore 02/25/24 Unknown Rx lozenges (Cepacol Sore Throat throat #16 ea (benzocaine-menthol)) prednisone 50 mg tablet 50 mg PO DAILY #5 tabs 02/25/24 Unknown Rx apixaban 5 mg tablet 5 mg PO BID #180 tabs 04/28/24 Unknown Rx tramadol 50 mg tablet 50 mg PO Q6H PRN pain 3 days #12 06/25/24 Unknown Rx tabs Allergy/AdvReac Type Severity Reaction Status Date / Time Penicillins Allergy Severe Anaphylaxis Verified 06/25/24 15:23 tetracycline Allergy Severe anaphylaxis Verified 06/25/24 15:23 Family History Mother Pancreatic cancer CAD (coronary artery disease) Father Cancer Lung cancer Brother Parkinson disease Surgical History History of surgery H/O: hysterectomy H/O hemorrhoidectomy History of bladder surgery H/O rhinoplasty History of cataract surgery History of appendectomy Social History Smoking Status: Former smoker how long ago did patient quit smokin+ years alcohol intake: never substance use type: does not use ROS ROS ED ROS Narrative Constitutional: No fever, no chills. HEENT: No sore throat. Left-sided neck pain. No loss of vision. No rhinorrhea. Cardiovascular: Positive chest pain. No palpitations. No pedal edema. Respiratory: No cough, no shortness of breath. Abdominal: No abdominal pain. No nausea. No vomiting. Genitourinary: No dysuria. No hematuria. Musculoskeletal: No myalgias. No arthralgias. Neurologic: Positive headaches. No dizziness. No lightheadedness. Skin: No rash. No change in color. Psychiatric: No depression. No anxiety. EXAM Physical Exam Narrative Exam Narrative: Afebrile. Vital signs noted. HEENT: Normocephalic. Atraumatic. PERRL, EOMI. Neck soft and supple. No point tenderness or step off. No vertebral point tenderness or bony step-off. Reproducible tenderness to palpation on the left paraspinal cervical musculature. No crepitance. Cardiovascular: Regular rate and rhythm. No murmurs, rubs, or gallops appreciated. Respiratory: No tachypnea. Lungs clear to auscultation bilaterally. Gastrointestinal: Abdomen soft, nontender, with normoactive bowel sounds. No rebound or guarding. Neurological: Awake. Alert. Nonfocal, nonlateralizing. Skin: No rash. Normal color. No pallor. Musculoskeletal: No pedal edema. Full range of motion extremities. Const Vital Signs: 06/25/24 15:23 06/25/24 15:38 06/25/24 15:48 Temperature 97.5 F L Temperature Source Temporal Pulse Rate 74 Respiratory Rate 18 Respiratory Effort Normal Non-Labored Respiratory Pattern Blood Pressure 133/66 H Blood Pressure Mean 88 Pulse Ox 98 Oxygen Delivery Method Room Air Room Air 06/25/24 15:49 06/25/24 16:00 06/25/24 16:11 Temperature Temperature Source Pulse Rate 74 Respiratory Rate 33 H Respiratory Effort Normal Non-Labored Respiratory Pattern Normal Blood Pressure 138/65 H Blood Pressure Mean 84 Pulse Ox Oxygen Delivery Method 06/25/24 16:15 06/25/24 16:30 06/25/24 16:45 Temperature Temperature Source Pulse Rate 77 75 73 Respiratory Rate 15 18 18 Respiratory Effort Respiratory Pattern Blood Pressure 146/69 H 142/66 H 132/59 H Blood Pressure Mean 91 88 80 Pulse Ox Oxygen Delivery Method 06/25/24 17:00 06/25/24 17:15 06/25/24 17:30 Temperature Temperature Source Pulse Rate 72 65 70 Respiratory Rate 16 19 H 12 Respiratory Effort Respiratory Pattern Blood Pressure 138/63 H 138/88 H 143/69 H Blood Pressure Mean 85 101 89 Pulse Ox Oxygen Delivery Method 06/25/24 17:45 06/25/24 18:00 Temperature Temperature Source Pulse Rate 94 74 Respiratory Rate 31 H 27 H Respiratory Effort Respiratory Pattern Blood Pressure 156/73 H 149/66 H Blood Pressure Mean 98 91 Pulse Ox Oxygen Delivery Method MDM MDM MDM Narrative Medical decision making narrative: Differential diagnosis includes but not limited to cervical radiculopathy versus ACS. I have a low suspicion for vertebral artery dissection or stroke. She is already on a blood thinner and takes Eliquis. Her blood pressure is not excessively high as well. Additionally, I do not feel that stroke alert is indicated as she and her family states that this has been ongoing for 5 days. EKG was obtained and interpreted by myself independently as atrial fibrillation at 69 bpm without ectopy or acute ST changes. No STEMI. I reviewed her laboratory work and she has normal white count 9.5, hemoglobin stable at 11.4 with hematocrit 35.4, platelet count normal at 200. Electrolyte panel is grossly unremarkable. Glucose is elevated to 73 but she has a normal anion gap of 6 so I doubt diabetic ketoacidosis. High-sensitivity troponin is 29. Her chest pain is been ongoing for at least 5 days. Additionally she complained more of left arm pain which I think is probably more cervical radicular pain. I reviewed the radiology report of the CT of the brain and there is no acute process, no hemorrhage. There is DJD of the spine on review of the radiology report of the CT of the cervical spine. I have low suspicion for vertebral artery dissection as she has pain that is reproducible on palpation of the muscle, and she has pain when she tries to move her head as well. I have low suspicion for thrombus or stroke based on her physical examination. Additionally she is already on Eliquis as a blood thinner. Chest x-ray 1 view interpreted by myself independently shows no acute process, no pneumonia or pneumothorax. I reviewed the radiology report which confirms my independent interpretation. For analgesia, she was given morphine and ondansetron. According to the RN initially she declined it, as she did not wanted to make her feel loopy. For home medication, I discussed with her the use of narcotic pain medication versus tramadol. She did not initially want to use tramadol, but I told her that narcotic pain medications would have greater side effects. She can continue [id number] medications but I did write her a prescription for 12 tablets of 50 mg of tramadol. She has to follow-up with her primary care provider. I feel she can be discharged safely home with follow-up. Return instructions to the emergency department were reviewed. Disposition is discharged home in stable condition. History & Record Review Discussion w/independent historian: Patient and Family Lab Data Attestation: I reviewed the patient's lab results. Labs: Laboratory Results - last 24 hr 06/25/24 15:43 WBC 9.5 RBC 3.88 L Hgb 11.4 L Hct 35.4 L MCV 91.2 MCH 29.4 MCHC 32.2 RDW Std Deviation 43.8 RDW Coeff of Colton 13.2 Plt Count 200 MPV 12.3 H Immature Gran % (Auto) 0.300 Neut % (Auto) 74.0 H Lymph % (Auto) 13.5 L Vilas % (Auto) 10.5 H Eos % (Auto) 1.4 Baso % (Auto) 0.3 Absolute Neuts (auto) 7.1 Absolute Lymphs (auto) 1.29 Nucleated RBC % 0 Sodium 136 Potassium 4.7 Chloride 106 Carbon Dioxide 24.0 Anion Gap 6 BUN 17 Creatinine 0.87 Estim Creat Clear Calc 43.36 Est GFR (MDRD) Af Amer 80 Est GFR (MDRD) Non-Af 66 BUN/Creatinine Ratio 19.6 Glucose 273 H Calcium 9.6 Troponin I High Sens 29 Radiography Diagnostic Testing: Clinical Impression(s) from Imaging Studies Chest X-Ray 06/25/24 16:00 IMPRESSION: No radiographic evidence of acute cardiopulmonary disease. Bilateral calcific tendinopathy at the shoulders. Electronically Signed: Drew Walter DO at 17:44 EDT , Brain CT 06/25/24 16:04 IMPRESSION: Normal unenhanced CT scan of the brain. Electronically Signed: Drew Walter DO at 16:26 EDT , Cervical Spine CT 06/25/24 16:04 IMPRESSION: Degenerative changes. No acute bony injury of the cervical spine. Electronically Signed: Drew Walter DO at 17:27 EDT , Discharge Plan Triage Chief Complaint: Chest Pain Other Complaint: General Illness ED Provider: Guille Feng Dx/Rx/DC Orders Clinical Impression: Neck pain, Chest pain, Cervical strain Instructions: ED Chest Pain, Uncertain Cause, ED Neck Pain Prescriptions: New tramadol 50 mg tablet 50 mg PO Q6H PRN (Reason: pain) 3 Days Qty: 12 0RF No Action pantoprazole 40 mg tablet,delayed release (DR/EC) 40 mg PO DAILY Qty: 90 3RF multivitamin Tablet 1 tab PO DAILY metformin 500 mg tablet 500 mg PO BID metoprolol tartrate 50 mg tablet 50 mg PO BID losartan 100 mg tablet 100 mg PO DAILY atorvastatin 20 mg tablet 20 mg PO QHS Patient Comments: TAKE 1 TABLET BY MOUTH ONCE DAILY fluticasone furoate-vilanterol [Breo Ellipta] 100-25 mcg/dose blister with device 1 inh inhalation DAILY Patient Comments: INHALE 1 PUFF BY MOUTH ONCE DAILY DIRECTED amlodipine 10 mg tablet 10 mg PO DAILY Qty: 90 3RF apixaban 5 mg tablet 5 mg PO BID Qty: 180 3RF Cepacol Sore Throat (janneth-men) 15-2.6 mg lozenge 1 cee mucous membrane Q2H PRN (Reason: sore throat) Qty: 16 0RF prednisone 50 mg tablet 50 mg PO DAILY Qty: 5 0RF Primary Care Provider: Terell Scott Referrals: Terell Scott MD [Primary Care Provider] - 3-5 Days if not improving Activity Restrictions/Additional Instructions: Continue [id number] medications as needed for pain. You can use the tramadol for breakthrough pain. Follow-up with your primary care provider. Apply ice to the affected area for 10 to 15 minutes a few times a day. Return with new or worsening symptoms. Print Language: Mauritanian Disposition Disposition: Home, Self Care
[2024-06-25 15:52] LABS: Absolute Lymphocyte Count 1.29 X10^3/uL (0.83-4.51); Absolute Neutrophil Count 7.1 X10^3/uL (2.0-7.7); Basophil# 0.03 X10^3/uL; Basophil% 0.3 % (0-1); Eosinophil# 0.13 X10^3/uL; Eosinophils% 1.4 % (0-5); Hematocrit 35.4 % (37-47); Hemoglobin 11.4 g/dL (12.0-15.0); Lymphocyte # 1.29 X10^3/ul (0.83-4.51); Lymphocyte % 13.5 % (19-41); Mean Corp Hgb Conc 32.2 g/dL (32-36); Mean Corpuscular Hgb 29.4 pg (27.0-32.0); Mean Corpuscular Volume 91.2 fL (81-99); Mean Platelet Vol. 12.3 fl (6.2-12.0); Monocyte% 10.5 % (0-10); NRBC Flagged by Analyzer 0 % (0-5); Neutrophil # 7.06 X10^3/uL (2.7-7.7); Platelet Count 200 K/mm3 (150-450); RBC Distribution Width CV 13.2 % (11.6-14.6); RBC Distribution Width SD 43.8 fl (35.1-43.9); Red Blood Count 3.88 M/mm3 (4.2-5.4); White Blood Count 9.5 K/mm3 (4.4-11.0)
--- NOTE | 2024-06-25 16:00 | RAD_ITS ---
INDICATION: chest pain EXAMINATION/TECHNIQUE: X-RAY - XR Chest 1 View COMPARISON: February 25, 2024 FINDINGS: LINES/DEVICES: None. LUNGS: No consolidation, edema or effusion. No pneumothorax. MEDIASTINUM AND CARDIOVASCULAR STRUCTURES: Cardiac silhouette not enlarged. Central airways and mediastinal contour are unremarkable. BONES AND SOFT TISSUES: Soft tissue calcifications lateral to the shoulder is likely due to diffuse calcific tendinopathy. RAD/Chest 1 View (Portable) IMPRESSION: No radiographic evidence of acute cardiopulmonary disease. Bilateral calcific tendinopathy at the shoulders. Electronically Signed: Drew Walter DO at 17:44 EDT Reading Location ID and State: [facility] / [place] Tel [phone], Service support ,
--- NOTE | 2024-06-25 16:04 | CT_ITS ---
STUDY: CT CERVICAL SPINE WITHOUT CONTRAST REASON FOR EXAM: Female, 84 years old. neck pain RADIATION DOSAGE (If Supplied By Facility): CTDIvol = ( 25.39 ) mGy, DLP = ( 512.09 ) mGycm TECHNIQUE: High resolution transaxial imaging was performed without contrast material. Sagittal and coronal images were reconstructed. Individualized dose optimization techniques were used for this CT. COMPARISON: None FINDINGS: Normal craniovertebral junction. Normal anterior atlantoaxial articulation. Normal odontoid process. Normal cervical lordosis. Normal vertebral bodies and posterior osseous elements. C2-3: Normal endplates. Normal disc height and morphology. Normal central canal and intervertebral neuroforamina. C3-4: Mild spurring at the endplates. Normal disc height and morphology. Normal central canal and intervertebral neuroforamina. C4-5: Mild spurring at the endplates. Normal disc height and morphology. Normal central canal. Facet hypertrophy and slightly narrowing the left intervertebral neural foramen. C5-6: Mild spurring at the endplates. Narrowed disc height. Posterior spurring protruding into the central canal. Uncovertebral spurring narrowing the intervertebral neuroforamina, left more than right. C6-7: Mild spurring at the endplates. Narrowed disc height. Normal central canal. Uncovertebral spurring slightly narrowing the right intervertebral neural foramen. C7-T1: Normal endplates. Normal disc height and morphology. Normal central canal and intervertebral neuroforamina. Normal visualized soft tissue structures. CT/Spine Cervical without Contras IMPRESSION: Degenerative changes. No acute bony injury of the cervical spine. Electronically Signed: Drew Walter DO at 17:27 EDT ,
--- NOTE | 2024-06-25 16:04 | CT_ITS ---
STUDY: CT BRAIN WITHOUT CONTRAST REASON FOR EXAM: Female, 84 years old. headache RADIATION DOSAGE (If Supplied By Facility): CTDIvol = ( 44.99 ) mGy, DLP = ( 779.24 ) mGycm TECHNIQUE: Transaxial CT imaging of the brain was performed without administration of intravenous contrast material. Individualized dose optimization techniques were used for this CT. COMPARISON: No relevant priors. FINDINGS: Normal soft tissue structures. Normal calvarium. Normal size ventricles and extra-axial spaces for the patient''s age. Normal white matter tracts of the cerebral hemispheres. Normal basal ganglia and thalami. Normal brainstem. Normal cerebellum. There is no intracranial hemorrhage. There are no findings of an acute ischemic infarction. Normal visualized paranasal sinuses. CT/Brain/Head without Contrast IMPRESSION: Normal unenhanced CT scan of the brain. Electronically Signed: Drew Walter DO at 16:26 EDT ,
[2024-06-25 16:09] LABS: Anion Gap 6 (5-15); BUN 17 mg/dL (7-18); BUN/Creat Ratio 19.6 RATIO (10-20); Calcium,Total 9.6 mg/dL (8.5-10.1); Chloride 106 mmol/L (98-107); Creatinine, Serum 0.87 mg/dL (0.55-1.02); EST Glomerular Filtration Rate 66 mL/min (>60); Est Glom Filt Rate - Afr Amer 80 mL/min (>60); Estimated Creatinine Clearance 43.36 ml/min; Glucose 273 mg/dL (74-106); Potassium 4.7 mmol/L (3.5-5.1); Sodium Level 136 mmol/L (136-145); Troponin-I HS (w/2H Reflex) 29 pg/mL (3.0-54.0)
[2024-06-25] MEDS: Morphine 4 MG/ML Syringe IV (16:37)
[2024-06-25] MEDS: Ondansetron 4 MG/2 ML Vial IV (16:37)
[2024-06-25 17:48] LABS: Reflex Troponin-HS? (from REC) Y
[2024-06-25 18:16] LABS: Troponin-I HS 28 pg/mL (3.0-54.0)
== END 2024-06-25 18:26 | disposition home or self-care (01) ==
PROVIDERS: Emergency Provider Emergency Medicine; PCP Family Medicine; Visit Provider Emergency Medicine
DX: R07.9 Chest pain, unspecified (principal); I48.91 Unspecified atrial fibrillation; E11.9 Type 2 diabetes mellitus without complications; S16.1XXA Strain of muscle, fascia and tendon at neck level, initial encounter; I10 Essential (primary) hypertension; M47.812 Spondylosis without myelopathy or radiculopathy, cervical region; X58.XXXA Exposure to other specified factors, initial encounter; M79.602 Pain in left arm; R51.9 Headache, unspecified; J45.909 Unspecified asthma, uncomplicated; Z79.01 Long term (current) use of anticoagulants; Z79.84 Long term (current) use of oral hypoglycemic drugs; Z79.899 Other long term (current) drug therapy; Z87.891 Personal history of nicotine dependence; Z86.73 Personal history of transient ischemic attack (TIA), 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 deficits
CPT/HCPCS: 70450; 71045; 72125; 80048; 84484; 85025; 93005; 96374; 96375; 99285; A4216; J2405

== ENCOUNTER 2024-09-17 15:30 | Outpatient (RCR) | payer MEDICARE, MEDICAID, SELFPAY ==
--- NOTE | 2024-07-16 16:28 | HP.PTEVAL ---
Patient's Visit Information Visit Information Visit Information: TELMA OLMOS is a 84 year old F referred to Physical Therapy by Dr. Terell Scott MD with a diagnosis of CERVICAL RADICULOPATHY. Date of Evaluation: 07/16/24 Physical Therapist: Zeke Miguel, PT, Cert MDT, OCS Visit Plan Frequency: 2x /Week Duration: 4 Weeks Plan: PT INTERVENTIONS MANUAL THERAPY ST/CERVICAL TRACTION , US/CP/MHP ,CERVICAL ROM AVOID TO LEFT AND POSTURAL EX'S Subjective Subjective: This 84 y/o female presents to physical therapy with cervical radiculopathy. Patient has had cervical pain Jun 2024 . Patient has had episode cervical pain had to go to ER . Patient had CT scan showed DDD. Patient saw neurologist tried cortisone. Family DR prescribed muscle relaxer. Pain located more on left side . Aggravating turning to left > right. Pain affects sleeping difficulty laying down. Alleviating factors heat and ice. Denies paresthesia/tingling-. Denies GATES/nausea/tinnitus /dizziness. Patient pain affects sleeping. Patient initially has some radicular symptoms . Patient condition affects QOL and function. Patient goals decrease pain. SOCIAL: lives alone Pain Left: Pain Intensity (Out of 10): 5 Pain Intensity Range: 10 Objective Objective: POSTURE:rounded shoulder head forward PALAPTION: tender UT/levator/scalenes left > right NEURO: denies paresthesia/tingling ,reflexes C5-6-7 1/3 CERVICAL ROM: flexion min loss ,extension mod/severe loss ,mod loss right ,left mod /severe loss ,lateral flexion mod loss right ,left mod /severe left pain towards left Balance/Special Test Scores Oswestry Neck Score: 34 Goals Goal 1:: Patient to be I with HEP for cervical Goal Time Frame: 4-6 Weeks Goal 2:: Patient to improve cervical ROM for function of recovery for ADLS Goal Time Frame: 4-6 Weeks Goal 3:: Patient to improve neck oswestry score by 5 points to improve QOL and function Goal Time Frame: 4-6 Weeks Goal 4:: Patient to demonstrate 40% improvement with less cervical pain to improve function. Goal Time Frame: 4-6 Weeks Rehabilitation Potential Physical Therapy Diagnosis: This patient has cervical radiculopathy with possible stenosis foraminal with pain with position and motion testing pain worse to left thus benefit from skilled PT Rehabilitation Potential: Good Anticipated Interventions Patient/Client Instruction: Educate patient on: Condition and Risk Factors For the Purpose of:: To decrease pain, To increase ROM, To improve muscle performance and motor function, To improve ability to perform ADL's, To increase tolerance to activity/condition/position, To improve ability of physical actions for home/community/work/leisure, To improve health of tissue, To decrease soft tissue restriction, To increase flexibility/ROM, To improve endurance, To improve balance, To reduce risk of recurrence and To improve tolerance to ADL's Therapeutic Exercise to Include: Strength training, Postural training, Flexibilty training and Active ROM For the Purpose of:: To decrease pain, To increase ROM, To improve nutrient delivery to tissue, To increase oxygenation perfusion, To improve ability to perform ADL's, To improve ability of physical actions for home/community/work/leisure, To improve health of tissue, To decrease soft tissue restriction and To increase flexibility/ROM Manual Therapy Techniques to Include: Mobilization and Soft tissue mobilization For the Purpose of:: To decrease pain, To increase ROM, To improve nutrient delivery to tissue, To increase oxygenation perfusion, To improve health of tissue and To decrease soft tissue restriction TENS: Yes IF ES: Yes Cryotherapy (ice pack, ice massage): Yes Thermo therapy (hot pack): Yes Ultrasound (thermal/non thermal): Yes For the Purpose of:: To decrease pain, To increase ROM, To improve nutrient delivery to tissue, To increase oxygenation perfusion, To improve health of tissue and To decrease soft tissue restriction Text: Thank you for the opportunity to evaluate your patient. For Medicare and Medicare HMO plans, please review the plan of care and approve it. It will need to be FAXED BACK to us at [phone] for Medicare purposes. For Medicare only, by signing this I certify the plan of care. Please let me know if there are questions or concerns regarding this plan of care. Physician Signature: Date:
--- NOTE | 2024-09-17 16:16 | HP.PTDCSUM ---
Discharge Summary D/C summary: It has been my pleasure to treat TELMA OLMOS referred by Dr. Terell Scott MD, with the diagnosis of CERVICAL RADICULOPATHY for a total of 17 visit(s). Discharge Date: Please see the following information for a summary of their discharge status. Subjective Subjective: Patient is happy with ROM , Sleeping better , Doing good able to ADL and houseworks tasks Pain Left: Pain Intensity (Out of 10): 0 Overall Improvement % Improvement: 90 Objective Objective/Function: POSTURE:rounded shoulder head forward PALAPTION: tender UT/levator/scalenes left > right NEURO: denies paresthesia/tingling ,reflexes C5-6-7 / CERVICAL ROM: flexion WFL ,extension WFL loss ,min ,mod loss right ,left ,lateral flexion mod loss right ,left Goals Goal 1:: Patient to be I with HEP for cervical Goal Progress: Progressing Goal 2:: Patient to improve cervical ROM for function of recovery for ADLS Goal Progress: Goal Met Goal 3:: Patient to improve neck oswestry score by 5 points to improve QOL and function( new goal) Goal Progress: Goal Met Goal 4:: Patient to demonstrate 80% improvement with less cervical pain to improve function.( new goal) Goal Progress: Goal Met Plan Plan: D/C TO HEP D/C Information d/c sentence: If there are questions or concerns regarding this patient's physical therapy, please feel free to call me at [phone]. Thank you for the referral of this patient. Sincerely, Zeke Miguel, PT, Cert MDT, OCS Balance/Gait/Functional tests Balance/Special Test Scores Oswestry Neck Score: 23 Improvement % Improvement: 90
== END 2024-09-17 19:00 | disposition home or self-care (01) ==
LOC: PT 15:30
PROVIDERS: PCP Family Medicine; Referring Provider Family Medicine; Visit Provider Family Medicine
DX: M54.12 Radiculopathy, cervical region (principal)
CPT/HCPCS: 97035; 97110; 97140; 97162; 97530

== ENCOUNTER 2025-01-09 18:38 | Inpatient (IN) | payer MEDICARE, MEDICAID, SELFPAY ==
[2025-01-09 18:39] VITALS: BP 130/95; PULSE 103; RESP 18; TEMP 36.6; O2SAT 99; BMI 29.4
--- NOTE | 2025-01-09 18:57 | CT_ITS ---
PROCEDURE: ABDOMEN/PELVIS W IV CONT ONLY 01/09/2025 REASON FOR EXAM: JAUNDICE, PAIN. Jose A colored stool. Dark urine. Hypertension. Diabetes. Hysterectomy. Appendectomy. TECHNIQUE: Abdomen CT without and with intravenous contrast. Coronal and Sagittal reconstruction series were provided. PATIENT PREPARATION: Per protocol ORAL CONTRAST TYPE: None. CONTRAST: Isovue 370 VOLUME: 92mL One or more dose reduction techniques were used (e.g., Automated exposure control, adjustment of the mA and/or kV according to patient size, use of iterative reconstruction technique. RADIATION DOSE SUMMARY: CTDlvol: 26.86 mGy DLP: 655.55 mGycm COMPARISON: None. COMPARISON: None. FINDINGS: Lung bases: Unremarkable. Liver: Attenuation slightly less than the spleen. Normal-size. No masses. Markedly dilated hepatic duct at 1.3 cm. Mildly dilated intrahepatic bile ducts. Gallbladder: Markedly distended. No gallstones Spleen: Unremarkable. Pancreas: An area of diminished attenuation in the head measuring 1.9 x 1.3 cm, axial image 31, coronal image 47. Dilated pancreatic duct measuring 0.4 cm. Adrenals: Left adrenal gland thickening. Kidneys: Unremarkable. Bladder: Unremarkable. Reproductive Organs: Uterus surgically absent. Bowel: Unremarkable. Appendix: Surgically absent. Lymph nodes: No lymphadenopathy. Vasculature: Mild atherosclerotic calcific disease. Peritoneum / Retroperitoneum: No masses or free fluid. Anterior abdominal wall: Unremarkable. Bones: Mild multilevel spondylosis and degenerative disc disease. CT/Abdomen/Pelvis W IV Cont ONLY IMPRESSION: 1. Dilated hepatic and pancreatic bile ducts. An area of hypoattenuation in t he head of the pancreas. These findings are concerning for pancreatic carcinoma. 2. Mild hepatocellular disease. 3. Markedly distended/hydropic gallbladder. 4. Other nonacute findings detailed above. Reading Location: [facility]
--- NOTE | 2025-01-09 18:57 | ED.RN ---
PT BROUGHT INTO ED FROM SON AND GRANDSON. C/O 1 MONTH AGO HAD N/V ABD PAIN. SEEN PCP. HAD SOME INSURANCE CHANGES WHICH DELAYED FURTHER VISITS. 1 WEEK AGO PT BECAME JAUNDICED WITH SHELIA COLORED STOOL
--- NOTE | 2025-01-09 18:58 | EDS_ITS ---
HPI History of Present Illness Chief Complaint: Abn Labs Narrative Narrative: 84-year-old female past medical history of hypertension, dysrhythmia, on blood thinners, presents with jaundice. She and her family states that she has been yellow for about a week. She is nauseated but not vomiting. She has dark urine and reid colored stools. She does not drink alcohol. She denies any exacerbating or alleviating factors but her grandson states that she has not taken some of her meds for the last few days. No fevers or chills. PFSH [facility] Medical History Neck pain, bilateral History of TIA (transient ischemic attack) Stroke/cerebrovascular accident Essential hypertension Complaint of melena Transient ischemic attack (03/2021) History of Lundberg's palsy GERD (gastroesophageal reflux disease) History of cancer History of blood transfusion Right atrial mass Former smoker Asthma Diabetes mellitus, type 2 Home Medications ?Medication ?Instructions ?Recorded ?Last Taken ?Type multivitamin 1 tab PO DAILY 06/19/21 Unkn own History pantoprazole 40 mg tablet,delayed 40 mg PO DAILY gerd #90 tabs 08/28/21 Unknown Rx release metformin 500 mg tablet 500 mg PO BID 02/15/22 Unkno wn History atorvastatin 20 mg tablet 20 mg PO QHS 03/07/23 Unknow n History losartan 100 mg tablet 100 mg PO DAILY 03/07/23 Unk nown History metoprolol tartrate 50 mg tablet 50 mg PO BID 11/21/23 Unknown History benzocaine 15 mg-menthol 2.6 mg 1 cee mucous membrane Q2H PRN sore 02/25/24 Unknown Rx lozenges (Cepacol Sore Throat throat #16 ea (benzocaine-menthol)) apixaban 5 mg tablet 5 mg PO BID #180 tabs Unknown Rx amlodipine 10 mg tablet 10 mg PO DAILY #90 tabs 10/28 02/19 Unknown Rx Allergy/AdvReac Type Severity Reaction Status Date / Time Penicillins Allergy Severe Anaphylaxis Verified 01/09/25 19:02 tetracycline Allergy Severe anaphylaxis Verified 01/09/25 19:02 tramadol (From Ultram) AdvReac Severe syncope Verified 01/09/25 21:02 Family History Mother Pancreatic cancer CAD (coronary artery disease) Father Cancer Lung cancer Brother Parkinson disease Surgical History History of surgery H/O: hysterectomy H/O hemorrhoidectomy History of bladder surgery H/O rhinoplasty History of cataract surgery History of appendectomy Social History Smoking Status: Former smoker how long ago did patient quit smokin+ years alcohol intake: never substance use type: does not use ROS ROS ED ROS Narrative Constitutional: No fever, no chills. HEENT: No sore throat. No neck pain. No loss of vision. No rhinorrhea. Cardiovascular: No chest pain. No palpitations. No pedal edema. Respiratory: No cough, no shortness of breath. Abdominal: No abdominal pain. Positive nausea. No vomiting. Genitourinary: No dysuria. No hematuria. Musculoskeletal: No myalgias. No arthralgias. Neurologic: No headaches. No dizziness. No lightheadedness. Skin: No rash. Positive yellow skin. No itching or pruritus. EXAM Physical Exam Narrative Exam Narrative: Afebrile. Vital signs noted. Nontoxic-appearing. HEENT examination reveals PERRL, EOMI, positive scleral icterus. Cardiovascular examination reveals mild tachycardia, occasionally irregular. Lungs are clear to auscultation bilaterally. Abdomen is soft and nontender without guarding or rebound. Positive bowel sounds. Neurological examination is nonfocal, nonlateralizing. No clonus. Skin examination does show diffuse jaundice especially in the face. Const Vital Signs: 01/09/25 18:39 01/09/25 18:51 01/09/25 20:39 Temperature 97.8 F Temperature Source Oral Pulse Rate 103 H 82 Respiratory Rate 18 20 H Respiratory Effort Normal Respiratory Pattern Normal Blood Pressure 130/95 H 177/87 H Blood Pressure Mean 106 117 Pulse Ox 99 97 Oxygen Delivery Method Room Air Room Air MDM MDM MDM Narrative Medical decision making narrative: Differential diagnosis includes but not limited to jaundice secondary to obstruction versus liver mass versus metastasis versus liver failure versus. Gallbladder pathology. I do feel imaging is indicated. I reviewed her laboratory work and she has normal white count of 6.4, hemoglobin 12.6, hematocrit 37.4, platelet count normal at 171. INR is normal at 1.0, APTT 26.1. Sodium slightly low 132 with normal chloride of 98 and potassium 3.8. Total bilirubin elevated 9.78 with direct being 7.64 and elevated. AST of 308 and ALT 390. Alk phos is elevated at 416. Lipase slightly elevated to 24. I reviewed the radiology report of the CT of the abdomen and pelvis. Of most significance is a pancreatic mass at the head of the pancreas causing pancreatic and bile duct dilatation. She also has a distended/hydropic gallbladder. As there is concern for pancreatic carcinoma, I discussed patient with Dr. Cheung with general surgery who agrees with transfer to a tertiary care center. Patient and her family state that her primary care provider is through [facility]. They prefer [facility] As it is in closer proximity, and they are associated with the [facility]. I discussed patient with the transfer line. They are working on acceptance, but the patient will be signed out to Dr. Remy as she is awaiting acceptance. Should they not have an available bed, patient will be discussed with the hospitalist for admission here. Disposition is transferred in stable condition. History & Record Review Discussion w/independent historian: Patient and Family Lab Data Attestation: I reviewed the patient's lab results. Labs: Laboratory Results - last 24 hr 01/09/25 19:21 WBC 6.4 RBC 4.26 Hgb 12.6 Hct 37.4 MCV 87.8 MCH 29.6 MCHC 33.7 RDW Std Deviation 47.2 H RDW Coeff of [place] 14.6 Plt Count 171 MPV 13.7 H Immature Gran % (Auto) 0.300 Neut % (Auto) 65.7 Lymph % (Auto) 21.5 [place] % (Auto) 10.8 H Eos % (Auto) 1.1 Baso % (Auto) 0.6 Absolute Neuts (auto) 4.2 Absolute Lymphs (auto) 1.37 Nucleated RBC % 0 PT 12.8 INR 1.0 APTT 26.1 Sodium 132 L Potassium 3.8 Chloride 98 Carbon Dioxide 20.3 L Anion Gap 14 BUN 11 Creatinine 0.81 Estim Creat Clear Calc 44.58 L Est GFR (MDRD) Non-Af 71 BUN/Creatinine Ratio 14.0 Glucose 418 H Calcium 9.9 Total Bilirubin 9.78 H Direct Bilirubin 7.64 H AST 308 H ALT 390 H Alkaline Phosphatase 416 H Total Protein 7.3 Albumin 4.2 Globulin 3.1 Lipase 224 H Radiography Diagnostic Testing: Clinical Impression(s) from Imaging Studies Abdomen/Pelvis CT 01/09/25 18:57 IMPRESSION: 1. Dilated hepatic and pancreatic bile ducts. An area of hypoattenuation in the head of the pancreas. These findings are concerning for pancreatic carcinoma. 2. Mild hepatocellular disease. 3. Markedly distended/hydropic gallbladder. 4. Other nonacute findings detailed above. Reading Location: [facility] Discharge Plan Triage Chief Complaint: Abn Labs ED Provider: Guille Feng Dx/Rx/DC Orders Clinical Impression: Mass of head of pancreas, Elevated lipase, Jaundice Prescriptions: No Action pantoprazole 40 mg tablet,delayed release (DR/EC) 40 mg PO DAILY Qty: 90 3RF multivitamin Tablet 1 tab PO DAILY metformin 500 mg tablet 500 mg PO BID metoprolol tartrate 50 mg tablet 50 mg PO BID losartan 100 mg tablet 100 mg PO DAILY atorvastatin 20 mg tablet 20 mg PO QHS Patient Comments: TAKE 1 TABLET BY MOUTH ONCE DAILY apixaban 5 mg tablet 5 mg PO BID Qty: 180 3RF Cepacol Sore Throat (janneth-men) 15-2.6 mg lozenge 1 cee mucous membrane Q2H PRN (Reason: sore throat) Qty: 16 0RF amlodipine 10 mg tablet 10 mg PO DAILY Qty: 90 3RF Primary Care Provider: Terell Scott Referrals: Terell Scott MD [Primary Care Provider] - Print Language: Singaporean
[2025-01-09 19:32] LABS: Absolute Lymphocyte Count 1.37 X10^3/uL (0.83-4.51); Absolute Neutrophil Count 4.2 X10^3/uL (2.0-7.7); Basophil# 0.04 X10^3/uL; Basophil% 0.6 % (0-1); Eosinophil# 0.07 X10^3/uL; Eosinophils% 1.1 % (0-5); Hematocrit 37.4 % (37-47); Hemoglobin 12.6 g/dL (12.0-15.0); Lymphocyte # 1.37 X10^3/ul (0.83-4.51); Lymphocyte % 21.5 % (19-41); Mean Corp Hgb Conc 33.7 g/dL (32-36); Mean Corpuscular Hgb 29.6 pg (27.0-32.0); Mean Corpuscular Volume 87.8 fL (81-99); Mean Platelet Vol. 13.7 fl (6.2-12.0); Monocyte# 0.69 X10^3/uL; Monocyte% 10.8 % (0-10); NRBC Flagged by Analyzer 0 % (0-5); Neutrophil # 4.17 X10^3/uL (2.7-7.7); Neutrophil % 65.7 % (47-70); Platelet Count 171 K/mm3 (150-450); RBC Distribution Width CV 14.6 % (11.6-14.6); RBC Distribution Width SD 47.2 fl (35.1-43.9); Red Blood Count 4.26 M/mm3 (4.2-5.4); White Blood Count 6.4 K/mm3 (4.4-11.0)
[2025-01-09 19:36] LABS: Prothrombin Time (Protime)PT. 12.8 SECONDS (11.7-14.9)
[2025-01-09 19:37] LABS: Partial Thromboplast Time 26.1 Seconds (24.1-36.2)
[2025-01-09 20:03] LABS: Lipase 224 U/L (13-75)
[2025-01-09 20:09] LABS: AST(SGOT) 308 U/L (<=31); Alanine Aminotransfer ALT/SGPT 390 U/L (<=34); Albumin, Serum 4.2 g/dL (3.4-4.8); Alkaline Phosphatase 416 U/L (35-104); Anion Gap 14 (5-15); BUN 11 mg/dL (4-19); Bilirubin, Direct 7.64 mg/dL (0.00-0.30); Calcium,Total 9.9 mg/dL (7.6-11.0); Carbon Dioxide 20.3 mmol/L (21.0-32.0); Chloride 98 mmol/L (98-108); Creatinine, Serum 0.81 mg/dL (0.70-1.20); EST Glomerular Filtration Rate 71 (>60); Estimated Creatinine Clearance 44.58 ml/min (50-250); Globulin 3.1 g/dL (2.2-4.2); Glucose 418 mg/dL (70-99); Potassium 3.8 mmol/L (3.3-5.1); Protein, Total 7.3 g/dL (5.9-8.4); Sodium Level 132 mmol/L (133-145); Total Bilirubin 9.78 mg/dL (0.00-1.30)
[2025-01-09 20:39] VITALS: BP 177/87; PULSE 82; RESP 20; O2SAT 97
[2025-01-09 22:00] VITALS: BP 179/108; PULSE 80; RESP 22; O2SAT 94
--- NOTE | 2025-01-09 22:13 | ED.RN ---
AKHIL FROM [facility] CALLED ME WITH AN ACCEPTING DR, DR. WILEY. SHE SAID SHE CAN'T EXPECT A BED TILL TOMORROW OR MAYBE TILL SATURDAY.
[2025-01-10] VITALS: BP 165/98; PULSE 79; RESP 22; O2SAT 95
--- NOTE | 2025-01-10 00:39 | PCM.HP.STD ---
[facility] Date of Admission: 01/10/25 Date of Service: 01/10/25 Chief Complaint: Jaundice. [facility] Narrative TELMA TINEO, is a 84 F with a past medical history of essential hypertension; on losartan, metoprolol and amlodipine, hyperlipidemia; on atorvastatin, overweight; with BMI of 29.4 this admission, remote history of tobacco abuse (quit 50+ years ago), DM-2; on metformin, chronic atrial fibrillation; on apixaban, history of TIA/CVA x 2, mild cognitive impairment, history of Lundberg's palsy, history of Right atrial mass, history of asthma, history of appendectomy, history of cancer, history of anoplasty, history of bladder surgery, history of hemorrhoidectomy, history of hysterectomy, history of blood transfusion, GERD; on pantoprazole and OA; with chronic neck pain who presents to [facility] ER complaining of jaundice. Ms. Tineo reports her symptoms began approximately 1 week prior to admission when she began to turn yellow, her urine turned orange and her stools turned white. She admits to associated nausea and generalized weakness and made it hard for her to complete her daily tasks. She denies vomiting, history of recent alcohol use, previous alcohol abuse or similar previous episodes. Her grandson informed the ER physician that she had stopped taking a few of her medications a few days ago and effort to try to improve her symptoms but no improvement was noted. Unfortunately, her jaundice has continued to worsen and she decided to come in for further evaluation and treatment. She also denies related fever, chills, chest pain, palpitations, heart racing, shortness of breath or headache. In the ER she was noted to have CT evidence of dilated hepatic and pancreatic ducts with an area of hypoattenuation in the head of the pancreas concerning for Pancreatic Carcinoma with additional evidence of mild hepatocellular disease with a markedly distended/hydropic gallbladder with corresponding laboratory evidence of Severe Hyperbilirubinemia; with total bilirubin of 9.78 mg/dL and direct bilirubin of 7.64 mg/dL in addition to Transaminitis; with AST of 308 units/L, ALT of 390 units/L and alkaline phosphatase of 416 units/L plus elevated lipase of 224 units/L suggestive of possible early pancreatitis with Hyperglycemia of 418 mg/dL all present on admission. She was then arranged for transfer to [facility] with bed not available at this time so the ER physician is contacted the hospitalist service to admit this patient until such time she can be safely transferred as per the policy of this hospital. She was then admitted to the general medical floor for ongoing care for stay that is expected to extend beyond 2 midnights. [facility] Medical History (Updated 01/10/25 @ 02:[address] Oniel Golden DO) Neck pain, bilateral History of TIA (transient ischemic attack) Stroke/cerebrovascular accident Essential hypertension Complaint of melena Transient ischemic attack (03/2021) History of Lundberg's palsy GERD (gastroesophageal reflux disease) History of cancer History of blood transfusion Right atrial mass Former smoker Asthma Diabetes mellitus, type 2 Home Medications ?Medication ?Instructions ?Recorded ?Last Taken ?Type multivitamin 1 tab PO DAILY 06/19/21 Unknown History pantoprazole 40 mg tablet,delayed 40 mg PO DAILY gerd #90 tabs 08/28/21 Unknown Rx release metformin 500 mg tablet 500 mg PO BID 02/15/22 Unknown History atorvastatin 20 mg tablet 20 mg PO QHS 03/07/23 Unknown History losartan 100 mg tablet 100 mg PO DAILY 03/07/23 Unknown History metoprolol tartrate 50 mg tablet 50 mg PO BID 11/21/23 Unknown History benzocaine 15 mg-menthol 2.6 mg 1 cee mucous membrane Q2H PRN sore 02/25/24 Unknown Rx lozenges (Cepacol Sore Throat throat #16 ea (benzocaine-menthol)) apixaban 5 mg tablet 5 mg PO BID #180 tabs 04/28/24 Unknown Rx amlodipine 10 mg tablet 10 mg PO DAILY #90 tabs 11/10/24 Unknown Rx Allergy/AdvReac Type Severity Reaction Status Date / Time Penicillins Allergy Severe Anaphylaxis Verified 01/09/25 19:02 tetracycline Allergy Severe anaphylaxis Verified 01/09/25 19:02 tramadol (From Ultram) AdvReac Severe syncope Verified 01/09/25 21:02 Family History Mother Pancreatic cancer CAD (coronary artery disease) Father Cancer Lung cancer Brother Parkinson disease Surgical History (Updated 01/10/25 @ 02:[address] Oniel Golden DO) History of surgery H/O: hysterectomy H/O hemorrhoidectomy History of bladder surgery H/O rhinoplasty History of cataract surgery History of appendectomy Social History Smoking Status: Former smoker how long ago did patient quit smokin+ years alcohol intake: never substance use type: does not use ROS ROS Narrative Review of Systems: Constitutional: Patient denies fever or chills. Eyes: Patient admits to yellowing of eyes but she denies changes in vision or discharge from eyes. ENT: Patient denies runny nose, sore throat or ear pain. Resp: Patient denies shortness of breath or cough. CV: Patient denies chest pain, palpitations, heart racing or lower extremity edema. GI: Patient admits to nausea but she denies vomiting, abdominal pain, diarrhea or constipation. : Patient denies dysuria or hematuria. MSK: Patient denies arthralgias or myalgias. Skin: Patient admits to severe jaundice but she denies rash, pruritus, abscess or wounds. Psych: Patient denies symptoms of uncontrolled depression or anxiety. Neuro: Patient denies headache, paresthesias or focal neurologic deficits. Hematology: Patient denies easy bleeding or easy bruisability. Endocrinology: Patient denies polyuria, polydipsia or polyphagia. 14 point ROS otherwise negative save for positives noted above in HPI. Vital Signs Vital Signs Vital Signs: 01/09/25 18:39 01/09/25 18:51 01/09/25 20:39 Temperature 97.8 F Temperature Source Oral Pulse Rate 103 H 82 Respiratory Rate 18 20 H Respiratory Effort Normal Respiratory Pattern Normal Blood Pressure 130/95 H 177/87 H Blood Pressure Mean 106 117 Pulse Ox 99 97 Oxygen Delivery Method Room Air Room Air 01/09/25 22:00 Temperature Temperature Source Pulse Rate 80 Respiratory Rate 22 H Respiratory Effort Respiratory Pattern Blood Pressure 179/108 H Blood Pressure Mean 131 Pulse Ox 94 Oxygen Delivery Method Room Air Weight Weight: 150 lb 9.211 oz Body Mass Index (BMI) 29.4 Physical Exam Const alert, oriented x3, no apparent distress and average body habitus Constitutional Narrative: Patient is severely jaundiced. General Appearance: cooperative HEENT normocephalic, head/scalp atraumatic, hearing grossly normal bilaterally and moist oral mucous membranes Eyes PERRL and EOMs intact bilaterally Neck no lymphadenopathy and supple Resp normal respiratory effort, no retractions, no use of accessory muscles and clear to auscultation bilaterally Cardio regular rate and regular rhythm GI normal to inspection, nondistended, normoactive bowel sounds, soft to palpation, non-tender and non-distended Extremity normal to inspection, full ROM and no clubbing, cyanosis or edema Skin Skin Narrative: Patient is severely jaundiced. Neuro oriented x3, CN's II-XII intact bilaterally, moves all extremities and no focal motor deficits Sensorium / Orientation: awake, alert, oriented to person, oriented to place and oriented to time Speech: speech normal Psych affect normal Results Medical Records Data Attestation: I reviewed the patient's medical records Lab / Micro Data Attestation: I reviewed the patient's lab results. 01/10/25 05:19 01/09/25 19:21 Labs: Laboratory Results - last 24 hr 01/09/25 19:21: WBC 6.4, RBC 4.26, Hgb 12.6, Hct 37.4, MCV 87.8, MCH 29.6, MCHC 33.7, RDW Std Deviation 47.2 H, RDW Coeff of [place] 14.6, Plt Count 171, MPV 13.7 H, Immature Gran % (Auto) 0.300, Neut % (Auto) 65.7, Lymph % (Auto) 21.5, [place] % (Auto) 10.8 H, Eos % (Auto) 1.1, Baso % (Auto) 0.6, Absolute Neuts (auto) 4.2, Absolute Lymphs (auto) 1.37, Nucleated RBC % 0, PT 12.8, INR 1.0, APTT 26.1, Sodium 132 L, Potassium 3.8, Chloride 98, Carbon Dioxide 20.3 L, Anion Gap 14, BUN 11, Creatinine 0.81, Estim Creat Clear Calc 44.58 L, Est GFR (MDRD) Non-Af 71, BUN/Creatinine Ratio 14.0, Glucose 418 H, Calcium 9.9, Total Bilirubin 9.78 H, Direct Bilirubin 7.64 H, AST 308 H, ALT 390 H, Alkaline Phosphatase 416 H, Total Protein 7.3, Albumin 4.2, Globulin 3.1, Lipase 224 H Imaging Radiology Impression Abdomen/Pelvis CT 01/09/25 18:57 IMPRESSION: 1. Dilated hepatic and pancreatic bile ducts. An area of hypoattenuation in the head of the pancreas. These findings are concerning for pancreatic carcinoma. 2. Mild hepatocellular disease. 3. Markedly distended/hydropic gallbladder. 4. Other nonacute findings detailed above. 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 CT evidence of dilated hepatic and pancreatic ducts with an area of hypoattenuation in the head of the pancreas concerning for Pancreatic Carcinoma with additional evidence of mild hepatocellular disease with a markedly distended/hydropic gallbladder - Admit to general medical floor until a bed is available at [facility]. Place on clear liquid diet. Start pantoprazole 40 mg IV daily. Give ondansetron IV as needed nausea and vomiting. Give ketorolac IV as needed [id number] (level 1-5/10) pain or fever. Give morphine IV as needed for severe (level 6-10/10) pain. Finally, CA 19-9 level is pending at this time to confirm suspicion. Finally, we will consult gastroenterology to see this patient on rounds in a.m. for further recommendations with help appreciated in advance. 2. Jaundice with Severe Hyperbilirubinemia; with total bilirubin of 9.78 mg/dL and direct bilirubin of 7.64 mg/dL due to #1 - Check CMP daily to follow trend. 3. Transaminitis; with AST of 308 units/L, ALT of 390 units/L and alkaline phosphatase of 416 units/L complicating #1 & #2 - Follow daily levels. 4. DM-2; uncontrolled with Hyperglycemia of 418 mg/dL present on admission on metformin adding to the medical complexity #1 - #3 - Patient on clear liquid diet. FSBS q. AC/HS plus lowest intensity SSI. Check HgbA1c to objectively evaluate quality of diabetic control. 5. Overweight; with BMI of 29.4 this admission adding to the burden of disease outlined from #1 - #4 - Weight loss will be recommended. Check TSH. 6. History of Uterine cancer; s/p hysterectomy - Noted. 7. Chronic atrial fibrillation; on apixaban - Hold apixaban with impending pancreatic biopsy. 8. Essential hypertension; on losartan, metoprolol and amlodipine - Continue home regimen as before plus give prn hydralazine IV for systolic blood pressure > 160 mmHg. 9. Hyperlipidemia; on atorvastatin - Hold statin with transaminitis noted on admission in #3. Check Lipid Profile. 10. Remote history of tobacco abuse (quit 50+ years ago) - Noted. 11. History of TIA/CVA x 2 - Noted. 12. Mild cognitive impairment - Stable. 13. History of Lundberg's palsy - Noted. 14. History of Right atrial mass - Noted. 15. History of asthma - Stable with no evidence of acute flare at this time. Continue prn nebulizers. 16. History of appendectomy - Noted. 17. History of anoplasty - Noted. 18. History of bladder surgery - Noted. 19. History of hemorrhoidectomy - Noted. 20. History of blood transfusion - Noted. 21. GERD; on pantoprazole - Patient on PPI IV for #1. 22. OA; with chronic neck pain - Give acetaminophen prn according to pain scale outlined in #1. 23. DVT prophylaxis - Lovenox 40 mg sq daily plus SCD's. Hold LMWH once a bed opens up. Total time: Approximately (but not less than) 75 minutes. Charges/Coding Visit Charges Inpatient E&M: 23783 Init Hosp L3
[2025-01-10 01:10] VITALS: BP 158/90; PULSE 86; RESP 22; TEMP 36.6; O2SAT 96
[2025-01-10 02:36] VITALS: BMI 28.7
[2025-01-10 02:38] VITALS: BP 151/93; PULSE 88; RESP 18; TEMP 36.3; O2SAT 98
[2025-01-10 02:44] LABS: Magnesium 1.9 mg/dL (1.5-2.2)
[2025-01-10] MEDS: 0.9% Normal Saline (1000mL) 1,000 ML 70 ML IV (03:15)
[2025-01-10] MEDS: Pantoprazole Sodium 40 MG in 0.9% Normal Saline (100mL MB+) 100 ML 330 MG IV ×2 (03:15→20:35)
[2025-01-10 06:07] LABS: Absolute Lymphocyte Count 1.24 X10^3/uL (0.83-4.51); Absolute Neutrophil Count 4.3 X10^3/uL (2.0-7.7); Basophil# 0.03 X10^3/uL; Basophil% 0.5 % (0-1); Eosinophil# 0.07 X10^3/uL; Eosinophils% 1.1 % (0-5); Lymphocyte # 1.24 X10^3/ul (0.83-4.51); Lymphocyte % 19.4 % (19-41); Mean Corp Hgb Conc 34.3 g/dL (32-36); Mean Corpuscular Volume 87.5 fL (81-99); Mean Platelet Vol. 13.5 fl (6.2-12.0); Monocyte# 0.77 X10^3/uL; Monocyte% 12.1 % (0-10); NRBC Flagged by Analyzer 0 % (0-5); Neutrophil # 4.26 X10^3/uL (2.7-7.7); Neutrophil % 66.7 % (47-70); Platelet Count 167 K/mm3 (150-450); RBC Distribution Width CV 14.7 % (11.6-14.6); RBC Distribution Width SD 47.3 fl (35.1-43.9); White Blood Count 6.4 K/mm3 (4.4-11.0)
[2025-01-10 06:54] LABS: Cholesterol 159 mg/dL (<=200); High Density Lipoprotein 55 mg/dL; Low Density Lipoprotein Calc. 78 mg/dL; Phosphorus 2.9 mg/dL (2.7-4.5); Triglycerides 130 mg/dL; Very Low Density Lipoprotein 26 mg/dL (5-40); cholesterol:hdl ratio screen 2.91
[2025-01-10 07:03] LABS: ALB/GLOB Ratio 1.4 RATIO (0.9-2.4); AST(SGOT) 286 U/L (<=31); Alanine Aminotransfer ALT/SGPT 367 U/L (<=34); Albumin, Serum 3.8 g/dL (3.4-4.8); Alkaline Phosphatase 374 U/L (35-104); Anion Gap 16 (5-15); BUN 9 mg/dL (4-19); BUN/Creat Ratio 13.6 RATIO (10-20); Calcium,Total 9.4 mg/dL (7.6-11.0); Carbon Dioxide 17.3 mmol/L (21.0-32.0); Chloride 101 mmol/L (98-108); Creatinine, Serum 0.65 mg/dL (0.70-1.20); EST Glomerular Filtration Rate 87 (>60); Estimated Creatinine Clearance 44.61 ml/min (50-250); Globulin 2.7 g/dL (2.2-4.2); Glucose 371 mg/dL (70-99); Potassium 3.4 mmol/L (3.3-5.1); Protein, Total 6.6 g/dL (5.9-8.4); Sodium Level 134 mmol/L (133-145); Total Bilirubin 8.88 mg/dL (0.00-1.30)
--- NOTE | 2025-01-10 07:41 | PCM.PN.HOSP ---
Reason for Visit Reason for Visit: Diagnoses Type 2 diabetes mellitus with hyperglycemia (01/10/25) Overweight (01/10/25) Other disorders of bilirubin metabolism (01/10/25) Chronic atrial fibrillation, unspecified (01/10/25) Other specified diseases of pancreas (01/10/25) Unspecified jaundice (01/10/25) Elevation of levels of liver transaminase levels (01/10/25) Personal history of malignant neoplasm of other parts of uterus (01/10/25) Acquired absence of both cervix and uterus (01/10/25) Subjective Subjective Feeling well. Never had any abdominal pain. Objective Data Objective Data Vital Signs: Vital Signs Temp Pulse Resp BP Pulse Ox O2 Del Method 36.3 C L 88 18 151/93 H 98 Room Air 01/10/25 02:38 01/10/25 02:38 01/10/25 02:38 01/10/25 02:38 01/10/25 02:38 01/10/25 02:38 Oxygen Delivery Method Room Air Weight: 66.7 kg Body Mass Index (BMI) 28.7 Intake & Output: Intake and Output for Last 24 Hours 01/08/25 01/09/25 01/10/25 23:59 23:59 23:59 Intake Total 110 / 110 Balance 110 / 110 Lab / Micro Data 01/10/25 05:19 01/10/25 05:19 Labs: Laboratory Results - last 24 hr 01/09/25 19:21: WBC 6.4, RBC 4.26, Hgb 12.6, Hct 37.4, MCV 87.8, MCH 29.6, MCHC 33.7, RDW Std Deviation 47.2 H, RDW Coeff of [place] 14.6, Plt Count 171, MPV 13.7 H, Immature Gran % (Auto) 0.300, Neut % (Auto) 65.7, Lymph % (Auto) 21.5, [place] % (Auto) 10.8 H, Eos % (Auto) 1.1, Baso % (Auto) 0.6, Absolute Neuts (auto) 4.2, Absolute Lymphs (auto) 1.37, Nucleated RBC % 0, PT 12.8, INR 1.0, APTT 26.1, Sodium 132 L, Potassium 3.8, Chloride 98, Carbon Dioxide 20.3 L, Anion Gap 14, BUN 11, Creatinine 0.81, Estim Creat Clear Calc 44.58 L, Est GFR (MDRD) Non-Af 71, BUN/Creatinine Ratio 14.0, Glucose 418 H, Calcium 9.9, Magnesium 1.9, Total Bilirubin 9.78 H, Direct Bilirubin 7.64 H, AST 308 H, ALT 390 H, Alkaline Phosphatase 416 H, Total Protein 7.3, Albumin 4.2, Globulin 3.1, Lipase 224 H 01/10/25 05:19: WBC 6.4, RBC 4.00 L, Hgb 12.0, Hct 35.0 L, MCV 87.5, MCH 30.0, MCHC 34.3, RDW Std Deviation 47.3 H, RDW Coeff of [place] 14.7 H, Plt Count 167, MPV 13.5 H, Immature Gran % (Auto) 0.200, Neut % (Auto) 66.7, Lymph % (Auto) 19.4, [place] % (Auto) 12.1 H, Eos % (Auto) 1.1, Baso % (Auto) 0.5, Absolute Neuts (auto) 4.3, Absolute Lymphs (auto) 1.24, Nucleated RBC % 0, Sodium 134, Potassium 3.4, Chloride 101, Carbon Dioxide 17.3 L, Anion Gap 16 H, BUN 9, Creatinine 0.65 L, Estim Creat Clear Calc 44.61 L, Est GFR (MDRD) Non-Af 87, BUN/Creatinine Ratio 13.6, Glucose 371 H, Calcium 9.4, Phosphorus 2.9, Total Bilirubin 8.88 H, AST 286 H, ALT 367 H, Alkaline Phosphatase 374 H, Total Protein 6.6, Albumin 3.8, Globulin 2.7, Albumin/Globulin Ratio 1.4, Triglycerides 130, Cholesterol 159, LDL Cholesterol, Calc 78, VLDL Cholesterol 26, HDL Cholesterol 55, Cholesterol/HDL Ratio 2.91, TSH 2.180 Radiography Diagnostic Testing: Radiology Impression Abdomen/Pelvis CT 01/09/25 18:57 IMPRESSION: 1. Dilated hepatic and pancreatic bile ducts. An area of hypoattenuation in the head of the pancreas. These findings are concerning for pancreatic carcinoma. 2. Mild hepatocellular disease. 3. Markedly distended/hydropic gallbladder. 4. Other nonacute findings detailed above. Reading Location: [facility] Physical Exam Const alert and no apparent distress Eyes Eyes Narrative: icterus. Resp normal respiratory effort, no retractions, no use of accessory muscles and clear to auscultation bilaterally Cardio regular rate, regular rhythm, S1 normal heart sound and S2 normal heart sound GI normal to inspection, nondistended, normoactive bowel sounds, soft to palpation, non-tender and non-distended Extremity normal to inspection and full ROM Assessment & Plan Assessment/Plan (1) Pancreatic mass: PLAN: CT showed dilated hepatic and pancreatic bile ducts. An area of hypoattenuation in the head of the pancreas. Associated with hyperbilirubinemia 8.88, transaminitis (AST 286, ALT 367). Concerning for malignancy. CA 19-9 sent off. GI consult. ERCP v perc biopsy v surgery, e.g., Whipple (no obvious hepatic lesions, nor lymphadenopathy per CT report) Advance diet. Awaiting on transfer to [facility]. PLAN: Plan DM2: uncontrolled: check a1c SSI. hold metformin as pt received IV contrast. HTN: stable. Continue metoprolol, losartan, amlodipine. VTE prophylaxis: enoxaparin. Charges/Coding Visit Charges Inpatient E&M: 37048 Subs Hosp L2
[2025-01-10 08:25] LABS: Hemoglobin A1c 13.2 % (<=5.6)
[2025-01-10 08:30] VITALS: BP 138/82; PULSE 81; RESP 16; TEMP 36.6; O2SAT 97
[2025-01-10] MEDS: Multivitamins,Therapeutic Tablet 1 TABLET PO (10:06)
[2025-01-10 11:57] LABS: Bedside Glucose 311 mg/dL (74-106)
[2025-01-10 14:24] VITALS: BP 154/94; PULSE 88; RESP 16; TEMP 36.6; O2SAT 97
[2025-01-10 16:41] LABS: Bedside Glucose 369 mg/dL (74-106)
[2025-01-10] MEDS: 0.9% Saline Lock 10 ML Syringe IV (20:35)
[2025-01-10] MEDS: Insulin Lispro 100 UNIT/ML INSULN.PEN SC (20:36)
[2025-01-10 21:00] VITALS: BP 172/104; PULSE 90; RESP 16; TEMP 36.5; O2SAT 100
[2025-01-10 21:23] LABS: Bedside Glucose 388 mg/dL (74-106)
[2025-01-11] MEDS: Insulin Lispro 100 UNIT/ML INSULN.PEN SC ×4 (05:50→21:53)
[2025-01-11 05:57] VITALS: BP 159/87; PULSE 74; RESP 16; TEMP 36.4; O2SAT 97
[2025-01-11 06:00] VITALS: BMI 29.0
[2025-01-11 06:13] LABS: Bedside Glucose 269 mg/dL (74-106)
[2025-01-11 06:37] LABS: Absolute Lymphocyte Count 1.14 X10^3/uL (0.83-4.51); Absolute Neutrophil Count 3.1 X10^3/uL (2.0-7.7); Basophil# 0.03 X10^3/uL; Basophil% 0.6 % (0-1); Eosinophil# 0.12 X10^3/uL; Eosinophils% 2.4 % (0-5); Hematocrit 34.2 % (37-47); Hemoglobin 11.7 g/dL (12.0-15.0); Lymphocyte # 1.14 X10^3/ul (0.83-4.51); Lymphocyte % 22.9 % (19-41); Mean Corp Hgb Conc 34.2 g/dL (32-36); Mean Corpuscular Hgb 29.7 pg (27.0-32.0); Mean Corpuscular Volume 86.8 fL (81-99); Mean Platelet Vol. 13.7 fl (6.2-12.0); Monocyte# 0.58 X10^3/uL; Monocyte% 11.6 % (0-10); NRBC Flagged by Analyzer 0 % (0-5); Neutrophil # 3.09 X10^3/uL (2.7-7.7); Neutrophil % 62.1 % (47-70); Platelet Count 169 K/mm3 (150-450); RBC Distribution Width CV 15.1 % (11.6-14.6); RBC Distribution Width SD 47.8 fl (35.1-43.9); Red Blood Count 3.94 M/mm3 (4.2-5.4)
[2025-01-11] MEDS: Multivitamins,Therapeutic Tablet 1 TABLET PO (08:12)
[2025-01-11 08:15] VITALS: BP 151/92; PULSE 97; RESP 16; TEMP 36.5; O2SAT 100
[2025-01-11 11:31] LABS: Bedside Glucose 414 mg/dL (74-106)
[2025-01-11 14:18] LABS: EST Glomerular Filtration Rate 81 (>60)
[2025-01-11 14:30] VITALS: BP 150/92; PULSE 84; RESP 16; TEMP 36.6; O2SAT 98
[2025-01-11 14:45] LABS: ALB/GLOB Ratio 1.8 RATIO (0.9-2.4); AST(SGOT) 247 U/L (<=31); Alanine Aminotransfer ALT/SGPT 343 U/L (<=34); Albumin, Serum 3.9 g/dL (3.4-4.8); Alkaline Phosphatase 366 U/L (35-104); Anion Gap 13 (5-15); BUN 8 mg/dL (4-19); BUN/Creat Ratio 10.8 RATIO (10-20); Calcium,Total 9.5 mg/dL (7.6-11.0); Chloride 103 mmol/L (98-108); Creatinine, Serum 0.74 mg/dL (0.70-1.20); Estimated Creatinine Clearance 44.71 ml/min (50-250); Globulin 2.1 g/dL (2.2-4.2); Glucose 276 mg/dL (70-99); Potassium 3.8 mmol/L (3.3-5.1); Protein, Total 5.9 g/dL (5.9-8.4); Sodium Level 136 mmol/L (133-145)
--- NOTE | 2025-01-11 15:34 | PCM.PN.HOSP ---
Reason for Visit Reason for Visit: Diagnoses Type 2 diabetes mellitus with hyperglycemia (01/10/25) Overweight (01/10/25) Other disorders of bilirubin metabolism (01/10/25) Chronic atrial fibrillation, unspecified (01/10/25) Other specified diseases of pancreas (01/10/25) Unspecified jaundice (01/10/25) Elevation of levels of liver transaminase levels (01/10/25) Personal history of malignant neoplasm of other parts of uterus (01/10/25) Acquired absence of both cervix and uterus (01/10/25) Subjective Subjective Patient was seen and examined today, she does not have any complaints of abdominal pain today. We have not yet received approval with a bed for the patient be transferred to [facility]. Objective Data Objective Data Vital Signs: Vital Signs Temp Pulse Resp BP Pulse Ox O2 Del Method 97.7 F L 97 16 151/92 H 100 Room Air 01/11/25 08:15 01/11/25 08:15 01/11/25 08:15 01/11/25 08:15 01/11/25 08:15 01/11/25 08:15 Oxygen Delivery Method Room Air Weight: 67 kg Body Mass Index (BMI) 29.0 Intake & Output: Intake and Output for Last 24 Hours 01/09/25 01/10/25 01/11/25 23:59 23:59 23:59 Intake Total 1220 / 1220 Balance 1220 / 1220 Medical Nutrition Assessment Dietitian: Malnutrition Criteria Met Start: 01/10/25 10:36 Freq: Status: Active Protocol: Document 01/10/25 12:40 SB (Rec: 01/10/25 12:40 SB [id number]) Nutrition Malnutrition Evidence of Yes Malnutrition Exists Malnutrition (severe Chronic ): Evidenced By Suboptimal Energy Intake (Moderate),Weight Loss ( Moderate) Clinical Problem Altered Nutrient-Related Laboratory Values Etiology related to endocrine dysfunction/diabetes Signs/Symptoms as evidenced by A1C 13.2% and glucose 371mg/dL Status Active Problem Chronic Disease or Condition Related Malnutrition Etiology moderate related to inadequate oral intake Signs/Symptoms as evidenced by PO meeting <75% of estimated nutrition needs x 4 months and 10% unintentional weight loss x 6 months. Status Active Problem Recommendation Dietitian Recommend advanced diet as tolerated to 1800 calorie Recommendations/ controlled/consistent carbohydrate diet. Changes As diet is advanced, order 120ml glucerna shake TID with medpass. Will consult MECHANICAL MAINTENANCE INSTRUCTOR d/t pt reporting difficulty chewing/ swallowing foods. Will monitor weight trends. Lab / Micro Data 01/11/25 05:48 01/11/25 05:48 Labs: Laboratory Results - last 24 hr 01/10/25 16:22: POC Glucose 369 H 01/10/25 20:29: POC Glucose 388 H 01/11/25 05:48: WBC 5.0, RBC 3.94 L, Hgb 11.7 L, Hct 34.2 L, MCV 86.8, MCH 29.7, MCHC 34.2, RDW Std Deviation 47.8 H, RDW Coeff of [place] 15.1 H, Plt Count 169, MPV 13.7 H, Immature Gran % (Auto) 0.400, Neut % (Auto) 62.1, Lymph % (Auto) 22.9, [place] % (Auto) 11.6 H, Eos % (Auto) 2.4, Baso % (Auto) 0.6, Absolute Neuts (auto) 3.1, Absolute Lymphs (auto) 1.14, Nucleated RBC % 0, Sodium 136, Potassium 3.8, Chloride 103, Carbon Dioxide 20.0 L, Anion Gap 13, BUN 8, Creatinine 0.74, Estim Creat Clear Calc 44.71 L, Est GFR (MDRD) Non-Af 81, BUN/Creatinine Ratio 10.8, Glucose 276 H, Calcium 9.5, Total Bilirubin 10.20 H, AST 247 H, ALT 343 H, Alkaline Phosphatase 366 H, Total Protein 5.9, Albumin 3.9, Globulin 2.1 L, Albumin/Globulin Ratio 1.8, POC Glucose 269 H 01/11/25 11:13: POC Glucose 414 H Physical Exam Const alert, oriented x3, no apparent distress, average body habitus and healthy appearing General Appearance: cooperative, well kempt and well developed Orientation / Consciousness: awake, oriented to person, oriented to place and oriented to time HEENT normocephalic, head/scalp atraumatic and moist oral mucous membranes Eyes PERRL, EOMs intact bilaterally and conjunctivae normal Neck supple, no JVD, thyroid normal and no carotid bruits General: trachea midline Resp normal respiratory effort and clear to auscultation bilaterally Auscultation: Negative for rales, rhonchi or wheezes Cardio regular rate, regular rhythm, no murmurs, no rub and no gallops GI normal to inspection, nondistended, normoactive bowel sounds, soft to palpation, non-tender and non-distended Extremity no clubbing, cyanosis or edema Skin Skin Narrative: Patient appears jaundiced Neuro oriented x3, CN's II-XII intact bilaterally, moves all extremities, no focal motor deficits and no sensory deficits noted Sensorium / Orientation: awake and alert Speech: speech normal Psych affect normal Assessment & Plan Assessment/Plan (1) Pancreatic mass: PLAN: Plan 1. Pancreatic mass-suspicious for pancreatic cancer, patient is awaiting a bed in [facility] for further care #2 obstructive jaundice secondary to #1-complicates care, management, recovery, and prognosis #3 type 2 diabetes-patient is receiving sliding scale insulin per fingerstick blood sugars #4 essential hypertension-patient is on Cozaar and metoprolol, blood pressure will be monitored Total clinical time spent by myself addressing the patient's medical issues, reviewing all of her data, and collaborating with patient's care team: 35 minutes Charges/Coding Visit Charges Inpatient E&M: 06528 Subs Hosp L2
[2025-01-11 16:49] LABS: Bedside Glucose 411 mg/dL (74-106)
--- NOTE | 2025-01-11 20:13 | PCM.HP.STD ---
[facility] - General General Date of Admission: 01/10/25 Date of Service: 01/11/25 Chief Complaint: Jaundice. [facility] Narrative TELMA OLMOS, is a 84 F who presents with painless jaundice. She reports her symptoms began approximately 1 week prior to admission when she began to turn yellow, her urine turned orange and her stools turned white. She admits to associated nausea and generalized weakness and made it hard for her to complete her daily tasks. She denies vomiting, history of recent alcohol use, previous alcohol abuse or similar previous episodes. Her grandson informed the ER physician that she had stopped taking a few of her medications a few days ago and effort to try to improve her symptoms but no improvement was noted. In the ER she was noted to have CT evidence of dilated hepatic and pancreatic ducts with an area of hypoattenuation in the head of the pancreas concerning for Pancreatic Carcinoma with additional evidence of mild hepatocellular disease with a markedly distended/hydropic gallbladder with corresponding laboratory evidence of Severe Hyperbilirubinemia; with total bilirubin of 9.78 mg/dL and direct bilirubin of 7.64 mg/dL in addition to Transaminitis; with AST of 308 units/L, ALT of 390 units/L and alkaline phosphatase of 416 units/L plus elevated lipase of 224 units/L suggestive of possible early pancreatitis with Hyperglycemia of 418 mg/dL all present on admission. Her mother of pancreatic cancer. [facility] Medical History Neck pain, bilateral History of TIA (transient ischemic attack) Stroke/cerebrovascular accident Essential hypertension Complaint of melena Transient ischemic attack (03/2021) History of Lundberg's palsy GERD (gastroesophageal reflux disease) History of cancer History of blood transfusion Right atrial mass Former smoker Asthma Diabetes mellitus, type 2 Home Medications ?Medication ?Instructions ?Recorded ?Last Taken ?Type multivitamin 1 tab PO DAILY 06/19/21 Unknown History pantoprazole 40 mg tablet,delayed 40 mg PO DAILY gerd #90 tabs 08/28/21 Unknown Rx release metformin 500 mg tablet 500 mg PO BID 02/15/22 Unknown History atorvastatin 20 mg tablet 20 mg PO QHS 03/07/23 Unknown History losartan 100 mg tablet 100 mg PO DAILY 03/07/23 Unknown History metoprolol tartrate 50 mg tablet 50 mg PO BID 11/21/23 Unknown History benzocaine 15 mg-menthol 2.6 mg 1 cee mucous membrane Q2H PRN sore 02/25/24 Unknown Rx lozenges (Cepacol Sore Throat throat #16 ea (benzocaine-menthol)) apixaban 5 mg tablet 5 mg PO BID #180 tabs 04/28/24 Unknown Rx amlodipine 10 mg tablet 10 mg PO DAILY #90 tabs 11/10/24 Unknown Rx Allergy/AdvReac Type Severity Reaction Status Date / Time Penicillins Allergy Severe Anaphylaxis Verified 01/09/25 19:02 tetracycline Allergy Severe anaphylaxis Verified 01/09/25 19:02 tramadol (From Ultram) AdvReac Severe syncope Verified 01/09/25 21:02 Family History Mother Pancreatic cancer CAD (coronary artery disease) Father Cancer Lung cancer Brother Parkinson disease Surgical History History of surgery H/O: hysterectomy H/O hemorrhoidectomy History of bladder surgery H/O rhinoplasty History of cataract surgery History of appendectomy Social History Smoking Status: Former smoker how long ago did patient quit smokin+ years alcohol intake: never substance use type: does not use ROS Constitutional Constitutional: Denies fatigue, fever(s), poor appetite, weight gain or weight loss Gastrointestinal Gastrointestinal: Denies belching, bloating, change in bowel habits, change in stool character, chewing difficulty, coffee ground emesis, constipation, cramping, diarrhea, dyspepsia, dysphagia, early satiety, excessive flatus, fecal incontinence, heartburn, hematemesis, hematochezia, hemorrhoids, loose stools, melena, nausea, odynophagia, rectal bleeding, tenesmus, vomiting or weight changes Vital Signs Vital Signs Vital Signs: 01/10/25 21:00 01/11/25 05:57 01/11/25 08:13 Temperature 97.7 F L 97.6 F L Temperature Source Oral Oral Pulse Rate 90 74 Respiratory Rate 16 16 Blood Pressure 172/104 H 159/87 H Blood Pressure Mean 126 111 Blood Pressure Source Monitor Monitor Blood Pressure Position Semi-Fowlers Semi-Fowlers Blood Pressure Location Right Arm Right Arm Pulse Ox 100 97 Oxygen Delivery Method Room Air Room Air Room Air 01/11/25 08:15 01/11/25 14:30 Temperature 97.7 F L 98 F Temperature Source Temporal Temporal Pulse Rate 97 84 Respiratory Rate 16 16 Blood Pressure 151/92 H 150/92 H Blood Pressure Mean 111 111 Blood Pressure Source Monitor Monitor Blood Pressure Position Semi-Fowlers Sitting Blood Pressure Location Left Arm Left Arm Pulse Ox 100 98 Oxygen Delivery Method Room Air Room Air Weight Weight: 147 lb 11.355 oz Body Mass Index (BMI) 29.0 Physical Exam Const alert, oriented x3, no apparent distress, average body habitus and healthy appearing General Appearance: cooperative, well kempt and well developed Orientation / Consciousness: awake, oriented to person, oriented to place and oriented to time HEENT normocephalic, head/scalp atraumatic and moist oral mucous membranes Eyes PERRL, EOMs intact bilaterally and conjunctivae normal Neck supple, no JVD, thyroid normal and no carotid bruits General: trachea midline Resp normal respiratory effort and clear to auscultation bilaterally Auscultation: Negative for rales, rhonchi or wheezes Cardio regular rate, regular rhythm, no murmurs, no rub and no gallops GI normal to inspection, nondistended, normoactive bowel sounds, soft to palpation, non-tender and non-distended Extremity no clubbing, cyanosis or edema Skin Skin Narrative: Patient appears jaundiced Neuro oriented x3, CN's II-XII intact bilaterally, moves all extremities, no focal motor deficits and no sensory deficits noted Sensorium / Orientation: awake and alert Speech: speech normal Psych affect normal Results Medical Records Data Medical Nutrition Assessment Dietitian: Malnutrition Criteria Met Start: 01/10/25 10:36 Freq: Status: Active Protocol: Document 01/10/25 12:40 SB (Rec: 01/10/25 12:40 SB [id number]) Nutrition Malnutrition Evidence of Yes Malnutrition Exists Malnutrition (severe Chronic ): Evidenced By Suboptimal Energy Intake (Moderate),Weight Loss ( Moderate) Clinical Problem Altered Nutrient-Related Laboratory Values Etiology related to endocrine dysfunction/diabetes Signs/Symptoms as evidenced by A1C 13.2% and glucose 371mg/dL Status Active Problem Chronic Disease or Condition Related Malnutrition Etiology moderate related to inadequate oral intake Signs/Symptoms as evidenced by PO meeting <75% of estimated nutrition needs x 4 months and 10% unintentional weight loss x 6 months. Status Active Problem Recommendation Dietitian Recommend advanced diet as tolerated to 1800 calorie Recommendations/ controlled/consistent carbohydrate diet. Changes As diet is advanced, order 120ml glucerna shake TID with medpass. Will consult MEDICAL PROGRAM SPECIALIST d/t pt reporting difficulty chewing/ swallowing foods. Will monitor weight trends. Lab / Micro Data 01/11/25 05:48 01/11/25 05:48 Labs: Laboratory Results - last 24 hr 01/10/25 20:29: POC Glucose 388 H 01/11/25 05:48: WBC 5.0, RBC 3.94 L, Hgb 11.7 L, Hct 34.2 L, MCV 86.8, MCH 29.7, MCHC 34.2, RDW Std Deviation 47.8 H, RDW Coeff of [place] 15.1 H, Plt Count 169, MPV 13.7 H, Immature Gran % (Auto) 0.400, Neut % (Auto) 62.1, Lymph % (Auto) 22.9, [place] % (Auto) 11.6 H, Eos % (Auto) 2.4, Baso % (Auto) 0.6, Absolute Neuts (auto) 3.1, Absolute Lymphs (auto) 1.14, Nucleated RBC % 0, Sodium 136, Potassium 3.8, Chloride 103, Carbon Dioxide 20.0 L, Anion Gap 13, BUN 8, Creatinine 0.74, Estim Creat Clear Calc 44.71 L, Est GFR (MDRD) Non-Af 81, BUN/Creatinine Ratio 10.8, Glucose 276 H, Calcium 9.5, Total Bilirubin 10.20 H, AST 247 H, ALT 343 H, Alkaline Phosphatase 366 H, Total Protein 5.9, Albumin 3.9, Globulin 2.1 L, Albumin/Globulin Ratio 1.8, POC Glucose 269 H 01/11/25 11:13: POC Glucose 414 H 01/11/25 16:28: POC Glucose 411 H Assessment & Plan Assessment/Plan (1) Mass of head of pancreas: (2) Jaundice: (3) Hyperbilirubinemia: (4) Transaminitis: (5) Type 2 diabetes mellitus with hyperglycemia: QUALIFIERS: Diabetes mellitus nursing home insulin use: without watermaster use Qualified Code(s): E11.65 - Type 2 diabetes mellitus with hyperglycemia (6) Overweight (BMI 25.0-29.9): (7) History of uterine cancer: (8) H/O: hysterectomy: (9) Atrial fibrillation: QUALIFIERS: Atrial fibrillation type: unspecified chronic Qualified Code(s): I48.20 - Chronic atrial fibrillation, unspecified PLAN: Plan 84 year-old with painless jaundice. She was discovered to have jaundice with cholestatic hepatitis on bloodwork.. CT evidence of dilated hepatic and pancreatic ducts with an area of hypoattenuation in the head of the pancreas concerning for Pancreatic Carcinoma with additional evidence of mild hepatocellular disease with a markedly distended/hydropic gallbladder. CA 19-9 level is pending at this time to confirm suspicion. Sh she agreed to undergo ERCP with cholangioscopy to hopefully allow for directed biopsies, and then staging for suspected pancreatic cancer. Charges/Coding Visit Charges Inpatient E&M: 39904 Init Hosp L3
[2025-01-11 21:43] VITALS: BP 162/90; PULSE 89; RESP 16; TEMP 36.6; O2SAT 99
[2025-01-11] MEDS: 0.9% Saline Lock 10 ML Syringe IV (21:55)
[2025-01-11 21:58] VITALS: BP 162/90; PULSE 89
[2025-01-11] MEDS: Metoprolol Tartrate 50 MG Tablet PO (21:58)
[2025-01-12] VITALS (13 sets, daily range): BP systolic 132–156; BP diastolic 67–98; PULSE 74–95; RESP 14–18; TEMP 36.3–36.9; O2SAT 96–100; BMI 29.0; BMI 28.9
[2025-01-12 00:40] LABS: Bedside Glucose 258 mg/dL (74-106)
--- NOTE | 2025-01-12 06:00 | EKG12_ITS ---
Test Reason : PRE-OP Blood Pressure : */* mmHG Vent. Rate : 78 BPM Atrial Rate : * BPM P-R Int : * ms QRS Dur : 88 ms QT Int : 402 ms P-R-T Axes : * -14 98 degrees QTcB Int : 458 ms Atrial fibrillation Moderate voltage criteria for LVH, may be normal variant ( R in aVL , Wali product ) ST & T wave abnormality, consider anterior ischemia Abnormal ECG When compared with ECG of 25-Jun-2024 15:29, QT has lengthened Confirmed by BERNARD HELMS, RAKESH ([id number]), newspaper photo editor CARLOS HARRIS ([id number]) on 01/12/2025 8:23:00 AM Referred By: DENNIS Confirmed By: RAKESH WAGNER MD
[2025-01-12] MEDS: Insulin Lispro 100 UNIT/ML INSULN.PEN SC ×2 (06:16→22:24)
[2025-01-12 07:03] LABS: Bedside Glucose 214 mg/dL (74-106)
[2025-01-12] MEDS: Metoprolol Tartrate 50 MG Tablet PO (09:45)
[2025-01-12 10:08] LABS: Carbohydrate Ag 19-9 2261 355 U/mL (0-35)
--- NOTE | 2025-01-12 10:49 | PRE.ANES_ITS ---
ASA Classification* ASA Classification ASA Classification: 4 (PMHx of essential hypertension; on losartan, metoprolol and amlodipine, DM-2; on metformin, chronic atrial fibrillation; on apixaban, hx of TIA/CVA, mild cognitive impairment, hx of Lundberg's palsy, hx of right atrial mass, hx of asthma ) and E Assessment & Plan Anesthesia* Anesthesia Assessment Anesthesia Assessment: Discussed sedation and/or anesthesia options, risks, benefits, and alternatives with patient/parents/legal guardian/POA. Questions invited. The patient/parents/legal guardian/POA seems to understand and agrees to proceed with anesthesia plan. Reviewed the physical assessment, medical history, allergy history and patient home medications list prior to surgery/procedure/anesthetic and documented any changes. Performed airway and anesthesia risk assessments. Anesthesia Type Anesthesia Type: General (ETT) History Source History Obtained from:: Patient and Chart Anesthesia Focused Assessment* Temperature: 97.6 F Pulse Rate: 79 Blood Pressure: 141/91 Respiratory Rate: 18 Pulse Ox: 98 Oxygen Delivery Method: Room Air Airway Assessment Mouth opens: >3 cm Mallampati Score: III Teeth Condition: Intact, Partial and Upper Neck Range of motion (ROM): Full ROM Focused Labs Anesthesia Preop lab: CBC WBC 5.0 K/mm3 (4.4-11.0) 01/11/25 05:48 01/11/25 RBC 3.94 M/mm3 (4.2-5.4) L 01/11/25 05:48 01/11/25 Hgb 11.7 g/dL (12.0-15.0) L 01/11/25 05:48 5 Hct 34.2 % (37-47) L 01/11/25 05:48 01/11/25 Plt Count 169 K/mm3 (150-450) 01/11/25 05:48 01/11/25 CHEMISTRY Potassium 3.8 mmol/L (3.3-5.1) 01/11/25 05:48 01/11/25 Sodium 136 mmol/L (133-145) 01/11/25 05:48 01/11/25 Magnesium 1.9 mg/dL (1.5-2.2) 01/09/25 19:21 01/09/25 Phosphorus 2.9 mg/dL (2.7-4.5) 01/10/25 05:19 01/10/25 BUN 8 mg/dL (4-19) 01/11/25 05:48 01/11/25 Creatinine 0.74 mg/dL (0.70-1.20) 01/11/25 05:48 01/11/25 Glucose 276 mg/dL (70-99) H 01/11/25 05:48 01/11/25 POC Glucose 214 mg/dL (74-106) H 01/12/25 06:14 01/12/25 TSH 2.180 uIU/mL (0.300-4.200) 01/10/25 05:19 12/26 04/21 COAG PT 12.8 SECONDS (11.7-14.9) 01/09/25 19:21 Pre-Assessment Diagnosis/Proposed Procedure Planned Operative Procedure(s): ERCP Anesthesia History Anesthesia History - acute care occupational therapist: Anesthesia History - acute care occupational therapist Hx Hospitalization Any Problems With Anesthesia No 01/11/25 21:37 Cholinesterase deficiency No 01/11/25 21:37 You/Your Family Experience No 01/11/25 21:37 fever (hyperthermia) with Relationship Recent Exposure to Contagious No 01/11/25 21:37 Disease Does patient have nerve No 01/11/25 21:37 stimulator Patient instructed to have No 01/11/25 21:37 device shut off --Does patient have Pacemaker No 01/12/25 08:02 or ICD? When Was Last Pacemaker Check QUESTION #4 FULL TEXT: You/Your Family Experience fever (hyperthermia) with Anesthesia Last Oral Intake Last Oral intake: Last Oral Intake NPO since 00:00 01/12/25 08:02 Meds taken in AM with sips of Yes 01/12/25 08:02 water? Meds patient instructed to BP meds 01/12/25 08:02 take am of surgery PONV PONV - acute care occupational therapist: PONV - acute care occupational therapist Female HX of Motion Sickness HX of N/V After Surgery Non-Smoker Duration of Surgery greater than 60 minutes Number of Risk Factors PONV Score Height & Weight Height & Weight: Anesthesia: Height & Weight Height 5 ft 01/12/25 08:02 Weight: 67.2 kg 01/12/25 08:02 Body Mass Index (BMI) 28.9 01/12/25 08:02 Respiratory Assessment Respiratory Assessment - acute care occupational therapist: Respiratory Tract Infection Hx - acute care occupational therapist Hx Respiratory Tract Infection No 01/11/25 21:37 STOP Sleep Apnea STOP Sleep Apnea - acute care occupational therapist: STOP Sleep Apnea - acute care occupational therapist Hx Hypertension Yes 01/11/25 11:23 Hx Sleep Apnea No 01/10/25 02:58 CPAP BIPAP Do you snore loudly (louder No 01/10/25 02:58 than talking or can be heard Do you often feel tired/ No 01/10/25 02:58 fatigued/ sleepy during daytime? Has anyone observed you stop No 01/10/25 02:58 breathing during sleep? STOP Results Negative 01/10/25 02:58 QUESTION #5 FULL TEXT : Do you snore loudly (louder than talking or can be heard through closed doors)? Tobacco Use History Tobacco Use History - acute care occupational therapist: Tobacco Use History - acute care occupational therapist Tobacco Use Smoking Status Former smoker 01/10/25 02:58 Hx Tobacco Use No 01/10/25 02:58 Years Smoking Packs Smoked per Day Smoking Cessation Date was No - quit smoking greater 01/10/25 02:58 within the last 15 years than 15 years ago Hx Smoking Cessation Date 10/28/77 01/10/25 02:58 Hx Smoking Cessation No 01/10/25 02:58 Counseling Hematologic Medial History Hematologic Hx - acute care occupational therapist: Hematologic Medical Hx - prefitter doors Hx of Blood Transfusion No 01/10/25 02:58 Hx of Transfusion in last 3 No 01/10/25 02:58 Months Date of Last Transfusion (if within last 3 months) Ever experience any problems No 01/10/25 02:58 with transfusion(s)? Specify any problems Hx of Preganancy in last 3 N/A 01/10/25 02:58 Months Nurse Filling Out Transfusion SWERTENLENORE 01/10/25 02:58 & Questions: Date: 01/10/25 01/10/25 02:58 Time: 02:58 01/10/25 02:58 Patient unable to answer at this time (ie. confused, unrespo /Reproduction History /Reproductive History - acute care occupational therapist: /Reproductive Hx- acute care occupational therapist Hx Now No 01/11/25 21:37 Gestational Age (in weeks): EDC: Hx Hx Para Hx Section SAB No 01/11/25 21:37 Active Medications Active Medications: Current Medications Generic Name Dose Route Start Last Admin Trade Name Freq PRN Reason Stop Dose Admin Al Hydroxide/Mg Hydroxide 30 ml 01/10/25 02:57 Mag Hydrox/Al Hydrox/Simeth 30 Ml Udc PO Q6H PRN PRN Gastric Burning Albuterol Sulfate 2.5 mg 01/10/25 02:57 Albuterol 2.5 Mg/3 Ml Vial.Neb. INHALATION Q2H PRN PRN SOB &/OR WHEEZING Amlodipine Besylate 10 mg 01/10/25 10:00 01/12/25 09:51 Amlodipine 10 Mg Tablet PO Not Given DAILY [facility] Protocol Enoxaparin Sodium 40 mg 01/10/25 10:00 01/12/25 07:28 Enoxaparin 40 Mg/0.4 Ml Syringe SC Not Given DAILY ALFREDO Glucagon 1 mg 01/10/25 07:49 Glucagon 1 Mg/Ml Syringe IM X1 PRN Hypoglycemia Protocol Sodium Chloride 100 mls @ 15 mls/hr 01/10/25 02:43 IV .Q6H40M PRN Saline Flush Sodium Chloride 100 mls @ 15 mls/hr 01/10/25 02:43 IV .Q6H40M PRN Additional IVPB Infusion Dextrose 250 mls @ 0 mls/hr 01/10/25 07:49 Dextrose 10%-Water IV .Q0M PRN HYPOGLYCEMIA Protocol As Directed Insulin Human Lispro 0 unit 01/10/25 11:00 01/12/25 10:46 Insulin Lispro 100 Unit/Ml Insuln.Pen SC Not Given ACHS ALFREDO Protocol Ketorolac Tromethamine 15 mg 01/10/25 02:57 Ketorolac 15 Mg/Ml Vial IV 01/15/25 02:57 Q8H PRN PRN Pain 1- 5/10 or Fever Losartan Potassium 100 mg 01/10/25 10:00 01/12/25 09:51 Losartan Potassium 100 Mg Tablet PO Not Given DAILY ALFREDO Protocol Magnesium Hydroxide 30 ml 01/10/25 02:57 Magnesium Hydroxide 30 Ml Udc PO DAILY PRN PRN Constipation Melatonin 3 mg 01/10/25 02:57 Melatonin 3 Mg Tablet PO QHS PRN PRN INSOMNIA Metoprolol Tartrate 50 mg 01/10/25 10:00 01/12/25 09:45 Metoprolol Tartrate 50 Mg Tablet PO 50 mg BID [facility] Administration Protocol Morphine Sulfate 2 mg 01/10/25 02:57 Morphine 2 Mg/Ml Syringe IV Q4H PRN PRN Pain Score 6-10 Multivitamins 1 tablet 01/10/25 08:00 01/12/25 07:28 Multivitamins,Therapeutic Tablet [facility] Nutritional Formula (Lactose Free) 120 ml 01/10/25 17:00 01/12/25 10:07 Glucerna Shake 120 Ml Liquid PO Not Given [facility] Ondansetron HCl 4 mg 01/10/25 02:57 Ondansetron 4 Mg/2 Ml Vial IV Q6H PRN PRN NAUSEA/VOMITING Pantoprazole Sodium 40 mg 01/12/25 10:00 01/12/25 07:28 Pantoprazole Sodium 40 Mg Tablet PO Not Given DAILY [facility] Sodium Chloride 10 - 40 ml 01/10/25 02:43 01/11/25 21:55 0.9% Saline Lock 10 Ml Syringe IV 10 ml UD PRN Administration SALINE FLUSH Throat Lozenges 1 lozenge 01/10/25 02:57 Benzocaine/Menthol 1 Lozenge MUCOUS MEM Q2H PRN PRN SORE THROAT PFSH Medical History Neck pain, bilateral History of TIA (transient ischemic attack) Stroke/cerebrovascular accident Essential hypertension Complaint of melena Transient ischemic attack (03/2021) History of Lundberg's palsy GERD (gastroesophageal reflux disease) History of cancer History of blood transfusion Right atrial mass Former smoker Asthma Diabetes mellitus, type 2 Home Medications ?Medication ?Instructions ?Recorded ?Last Taken ?Type multivitamin 1 tab PO DAILY 06/19/21 Unkn own History pantoprazole 40 mg tablet,delayed 40 mg PO DAILY gerd #90 tabs 08/28/21 Unknown Rx release metformin 500 mg tablet 500 mg PO BID 02/15/22 Unkno wn History atorvastatin 20 mg tablet 20 mg PO QHS 03/07/23 Unknow n History losartan 100 mg tablet 100 mg PO DAILY 03/07/23 Unk nown History metoprolol tartrate 50 mg tablet 50 mg PO BID 11/21/23 Unknown History benzocaine 15 mg-menthol 2.6 mg 1 cee mucous membrane Q2H PRN sore 02/25/24 Unknown Rx lozenges (Cepacol Sore Throat throat #16 ea (benzocaine-menthol)) apixaban 5 mg tablet 5 mg PO BID #180 tabs Unknown Rx amlodipine 10 mg tablet 10 mg PO DAILY #90 tabs 10/28 02/19 Unknown Rx Allergy/AdvReac Type Severity Reaction Status Date / Time Penicillins Allergy Severe Anaphylaxis Verified 01/12/25 10:54 tetracycline Allergy Severe anaphylaxis Verified 01/12/25 10:54 tramadol (From Ultram) AdvReac Severe syncope Verified 01/12/25 10:54 Family History Mother Pancreatic cancer CAD (coronary artery disease) Father Cancer Lung cancer Brother Parkinson disease Surgical History History of surgery H/O: hysterectomy H/O hemorrhoidectomy History of bladder surgery H/O rhinoplasty History of cataract surgery History of appendectomy Social History Smoking Status: Former smoker how long ago did patient quit smokin+ years alcohol intake: never substance use type: does not use Review of Systems (Anesthesia) ROS Narrative System reviewed and no additional complaints, except as documented. Physical Exam Narrative Plesant 84 year old female who looks jaundiced Const alert, oriented x3 and average body habitus Resp normal respiratory effort, normal air movement and clear to auscultation bilaterally Cardio regular rate, regular rhythm, no murmurs and diaphoretic
[2025-01-12] MEDS: 0.9% Normal Saline (1000mL) 1,000 ML 15 ML IV (11:01)
--- NOTE | 2025-01-12 12:00 | PCM.PN.BLA ---
Progress Note Patient has been n.p.o. for ERCP today. All questions concerns were answered. Physical Exam Narrative Plesant 84 year old female who looks jaundiced Const alert, oriented x3 and average body habitus Resp normal respiratory effort, normal air movement and clear to auscultation bilaterally Cardio regular rate, regular rhythm, no murmurs and diaphoretic Assessment & Plan Assessment/Plan (1) Mass of head of pancreas: (2) Jaundice: (3) Hyperbilirubinemia: (4) Transaminitis: (5) Type 2 diabetes mellitus with hyperglycemia: QUALIFIERS: Diabetes mellitus termite control technician insulin use: without termite control technician use Qualified Code(s): E11.65 - Type 2 diabetes mellitus with hyperglycemia (6) Overweight (BMI 25.0-29.9): (7) History of uterine cancer: (8) H/O: hysterectomy: (9) Atrial fibrillation: QUALIFIERS: Atrial fibrillation type: unspecified chronic Qualified Code(s): I48.20 - Chronic atrial fibrillation, unspecified PLAN: Plan 84 year-old with painless jaundice. She was discovered to have jaundice with cholestatic hepatitis on bloodwork.. CT evidence of dilated hepatic and pancreatic ducts with an area of hypoattenuation in the head of the pancreas concerning for Pancreatic Carcinoma with additional evidence of mild hepatocellular disease with a markedly distended/hydropic gallbladder. CA 19-9 level is pending at this time to confirm suspicion. Sh she agreed to undergo ERCP with cholangioscopy to hopefully allow for directed biopsies, and then staging for suspected pancreatic cancer.
--- NOTE | 2025-01-12 12:20 | RAD_ITS ---
PROCEDURE: ERCP BILIARY/PANCREAS 01/12/2025 REASON FOR EXAM: PAIN. ERCP WITH SPY? TECHNIQUE: Fluoroscopic services provided for ERCP. Fluoroscopic time: 110.7 seconds 22.5 mGy 3 images were submitted. COMPARISON: None. FINDINGS: The stoner out performed the ERCP. Fluoroscopic imaging provided. RAD/ERCP Biliary/Pancreas IMPRESSION: Fluoroscopic services provided for ERCP. Reading Location: [facility]-
--- NOTE | 2025-01-12 13:42 | OP.ERCP_ITS ---
Patient Name: Merced Tineo Procedure Date: 01/12/2025 11:51 AM Date of : 1940 Age: 84 Procedure: ERCP Indications: Tumor of the head of pancreas Providers: Mohit Brown DO Medicines: Monitored Anesthesia Care Patient Profile: This is an 84 year old female. Refer to note in patient chart for documentation of history and physical. Patient has symptoms of acute jaundice. Complications: No immediate complications. Estimated blood loss: None Procedure: Pre-Anesthesia Assessment: - Prior to the procedure, a History and Physical was performed, and patient medications and allergies were reviewed. The patient is competent. The risks and benefits of the procedure and the sedation options and risks were discussed with the patient. All questions were answered and informed consent was obtained. Patient identification and proposed procedure were verified by the physician in the pre-procedure area. Mental Status Examination: alert and oriented. Airway Examination: normal oropharyngeal airway and neck mobility. Respiratory Examination: clear to auscultation. CV Examination: normal. Prophylactic Antibiotics: The patient does not require prophylactic antibiotics. Prior Anticoagulants: The patient has taken no anticoagulant or antiplatelet agents except for NSAID medication. ASA Grade Assessment: II - A patient with mild systemic disease. After reviewing the risks and benefits, the patient was deemed in satisfactory condition to undergo the procedure. The anesthesia plan was to use general anesthesia. Immediately prior to administration of medications, the patient was re-assessed for adequacy to receive sedatives. The heart rate, respiratory rate, oxygen saturations, blood pressure, adequacy of pulmonary ventilation, and response to care were monitored throughout the procedure. The physical status of the patient was re-assessed after the procedure. After obtaining informed consent, the scope was passed under direct vision. Throughout the procedure, the patient's blood pressure, pulse, and oxygen saturations were monitored continuously. The Duodenoscope was introduced through the mouth, and advanced to the duodenum without successful cannulation. 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 The patient tolerated the procedure well. Scope In: 12:21:51 PM Scope Out: 1:30:33 PM Total Procedure Duration Time 1 hour 8 minutes 42 seconds Findings: The director of assisted living film was normal. The bile duct could not be cannulated with the short-nosed traction sphincterotome. No biopsies or other specimens were collected for this exam. Impression: - No specimens collected. Procedure Code(s): --- Professional --- 21325, Esophagogastroduodenoscopy, flexible, transoral; diagnostic, including collection of specimen(s) by brushing or washing, when performed (separate procedure) CPT copyright 2021 [employer]. All rights reserved. The codes documented in this report are preliminary and upon hcc coders review may be revised to meet current compliance requirements. Mohit Brown DO 01/12/2025 1:41:52 PM This report has been signed electronically. Number of Addenda: 0 Note Initiated On: 01/12/2025 11:51 AM
--- NOTE | 2025-01-12 13:42 | OP.CCLET_ITS ---
01/12/2025 Terell Scott Re : ERCP procedure for Merced Scott This procedure was performed on Sunday, January 12, 2025. My impressions and recommendations are as follows: Impressions : - No specimens collected. Recommendations : My findings are described in the full procedure note, which is enclosed. If I can be of further assistance, please feel free to contact me at . Sincerely, Mohit Brown, 01/12/2025 1:41:52 PM This report has been signed electronically.
--- NOTE | 2025-01-12 13:48 | PCM.POST.ANE ---
Anesthesia: Postop Eval I Current Vital Signs Temperature: 97.7 F Pulse Rate: 81 Blood Pressure: 143/77 Respiratory Rate: 16 Pulse Ox: 96 Assessment Airway patent: Yes Spontaneous unlabored respirations: Yes nausea: No Vomiting: No Anesthesia Complication: No Fluid Hydration Crystalloid volume administer (ml): 1,000 Total IV fluid infused: 1,000 Progress Note Anesthesia document: Postop Eval 1 completed: Yes
--- NOTE | 2025-01-12 14:08 | POSTOPAN2_ITS ---
Anesthesia Postop Eval I Sum Postop Eval Completion status Anesthesia document: Postop Eval 1 completed: Yes Anesthesia Postop Eval I Summary Anesthesia Postop Eval I Summary: Anesthesia Postop Eval I: Assessment Summary Airway patent Yes 01/12/25 13:48 [email or web address] Spontaneous unlabored Yes 01/12/25 13:48 [email or web address] respirations Mental status nausea No 01/12/25 13:48 [email or web address] Vomiting No 01/12/25 13:48 [email or web address] Anesthesia Postop Eval I: Fluid Summary Crystalloid volume administer 1,000 01/12/25 13:48 [email or web address] (ml) Colloids volume administered ( ml) Blood Product volume administered (ml) Total IV fluid infused 1,000 01/12/25 13:48 [email or web address] Anesthesia Postop Eval I: Summary Notes Anesthesia Complication No 01/12/25 13:48 [email or web address] Anesthesia Complication Comment: Post-operative progress note Anesthesia: Postop Eval II Evaluation Mental status: Awake Pain Level: 0 nausea: No Vomiting: No Complications Anesthesia Complication: No
--- NOTE | 2025-01-12 14:08 | PCM.POSTANE2 ---
Anesthesia Postop Eval I Sum Postop Eval Completion status Anesthesia document: Postop Eval 1 completed: Yes Anesthesia Postop Eval I Summary Anesthesia Postop Eval I Summary: Anesthesia Postop Eval I: Assessment Summary Airway patent Yes 01/12/25 13:48 LEASING PROPERTY [email or web address] Spontaneous unlabored Yes 01/12/25 13:48 LEASING PROPERTY [email or web address] respirations Mental status nausea No 01/12/25 13:48 LEASING PROPERTY [email or web address] Vomiting No 01/12/25 13:48 LEASING PROPERTY [email or web address] Anesthesia Postop Eval I: Fluid Summary Crystalloid volume administer 1,000 01/12/25 13:48 LEASING PROPERTY [email or web address] (ml) Colloids volume administered ( ml) Blood Product volume administered (ml) Total IV fluid infused 1,000 01/12/25 13:48 LEASING PROPERTY [email or web address] Anesthesia Postop Eval I: Summary Notes Anesthesia Complication No 01/12/25 13:48 LEASING PROPERTY [email or web address] Anesthesia Complication Comment: Post-operative progress note Anesthesia: Postop Eval II Evaluation Mental status: Awake Pain Level: 0 nausea: No Vomiting: No Complications Anesthesia Complication: No
--- NOTE | 2025-01-12 14:43 | NURSING ---
Per PACU Nurse ERCP was unsuccessful. Family came up shortly after pt arrived back to floor and said that they waited downstairs for an update from Dr. Brown but Dr. Brown never came out to talk to them. By then pt had already came back to floor and family came shortly after. This RN told family that Dr. Brown was unable to perform the ERCP. This RN called [facility] transfer hotline to check on the availability of a bed. Still no bed available.
--- NOTE | 2025-01-12 17:00 | PN.HOSP_ITS ---
Reason for Visit Reason for Visit: Diagnoses Type 2 diabetes mellitus with hyperglycemia (01/10/25) Overweight (01/10/25) Other disorders of bilirubin metabolism (01/10/25) Chronic atrial fibrillation, unspecified (01/10/25) Other specified diseases of pancreas (01/10/25) Unspecified jaundice (01/10/25) Elevation of levels of liver transaminase levels (01/10/25) Personal history of malignant neoplasm of other parts of uterus (01/10/25) Acquired absence of both cervix and uterus (01/10/25) Subjective Subjective Patient was seen and examined today, she underwent an ERCP but the credit administration specialist was unable to cannulate the common bile duct. I talked to the patient's daughter was in the room at the time my examination, I offered to check [facility] to see if they have any beds available, she consented to this but [facility] told me that they are backed up and the waiting time is about 2 days for ER backlog. Objective Data Objective Data Vital Signs: Vital Signs Temp Pulse Resp BP Pulse Ox O2 Del Method 97.7 F L 82 16 155/98 H 98 Room Air 01/12/25 16:24 01/12/25 16:24 01/12/25 16:24 01/12/25 16:24 01/12/25 16:24 01/12/25 16:24 Oxygen Delivery Method Room Air Weight: 67.2 kg Body Mass Index (BMI) 28.9 Intake & Output: Intake and Output for Last 24 Hours 01/10/25 01/11/25 01/12/25 23:59 23:59 23:59 Intake Total 1220 / 1220 0 / 0 Balance 1220 / 1220 0 / 0 Medical Nutrition Assessment Dietitian: Malnutrition Criteria Met Start: 01/10/25 10:36 Freq: Status: Active Protocol: Document 01/10/25 12:40 SB (Rec: 01/10/25 12:40 SB [id number]) Nutrition Malnutrition Evidence of Yes Malnutrition Exists Malnutrition (severe Chronic ): Evidenced By Suboptimal Energy Intake (Moderate),Weight Loss ( Moderate) Clinical Problem Altered Nutrient-Related Laboratory Values Etiology related to endocrine dysfunction/diabetes Signs/Symptoms as evidenced by A1C 13.2% and glucose 371mg/dL Status Active Problem Chronic Disease or Condition Related Malnutrition Etiology moderate related to inadequate oral intake Signs/Symptoms as evidenced by PO meeting <75% of estimated nutrition needs x 4 months and 10% unintentional weight loss x 6 months. Status Active Problem Recommendation Dietitian Recommend advanced diet as tolerated to 1800 calorie Recommendations/ controlled/consistent carbohydrate diet. Changes As diet is advanced, order 120ml glucerna shake TID with medpass. Will consult FARMWORKER DAIRY d/t pt reporting difficulty chewing/ swallowing foods. Will monitor weight trends. Lab / Micro Data 01/11/25 05:48 01/11/25 05:48 Labs: Laboratory Results - last 24 hr 01/09/25 19:21: CA 19-9 Antigen 355 H, CA 19-9 Serial Monitor Not Reportable 01/11/25 21:46: POC Glucose 258 H 01/12/25 06:14: POC Glucose 214 H Radiography Diagnostic Testing: Radiology Impression Endo Retro Cholangiopancreatogram 01/12/25 12:20 IMPRESSION: Fluoroscopic services provided for ERCP. Reading Location: [place] [id number] Physical Exam Narrative alert, oriented x3, no apparent distress, average body habitus and healthy appearing General Appearance: cooperative, well kempt and well developed Orientation / Consciousness: awake, oriented to person, oriented to place and oriented to time HEENT normocephalic, head/scalp atraumatic and moist oral mucous membranes Eyes PERRL, EOMs intact bilaterally and conjunctivae normal Neck supple, no JVD, thyroid normal and no carotid bruits General: trachea midline Resp normal respiratory effort and clear to auscultation bilaterally Auscultation: Negative for rales, rhonchi or wheezes Cardio regular rate, regular rhythm, no murmurs, no rub and no gallops GI normal to inspection, nondistended, normoactive bowel sounds, soft to palpation, non-tender and non-distended Extremity no clubbing, cyanosis or edema Skin Skin Narrative: Patient appears jaundiced Neuro oriented x3, CN's II-XII intact bilaterally, moves all extremities, no focal motor deficits and no sensory deficits noted Sensorium / Orientation: awake and alert Speech: speech normal Psych affect normal Assessment & Plan Assessment/Plan (1) Pancreatic mass: PLAN: Plan 1. Pancreatic mass-suspicious for pancreatic cancer, patient is awaiting a bed in [facility] for further care #2 obstructive jaundice secondary to #1-complicates care, management, recovery, and prognosis #3 type 2 diabetes-patient is receiving sliding scale insulin per fingerstick blood sugars #4 essential hypertension-patient is on Cozaar and metoprolol, blood pressure will be monitored #5 chronic moderate protein and caloric malnutrition related to inadequate oral intake as evidenced by p.o. meeting less than 75% of estimated nutritional needs x 4 months and 10% unintentional weight loss x 6 months-diet was advanced 1800- calorie consistent carbohydrate diet, 120 mL of Glucerna shake 3 times daily with med MyWedding was ordered Total clinical time spent by myself addressing the patient's medical issues, reviewing all of her data, and collaborating with patient's care team: 35 minutes Charges/Coding Visit Charges Inpatient E&M: 63265 Subs Hosp L2
[2025-01-12 23:02] LABS: Bedside Glucose 397 mg/dL (74-106)
[2025-01-13] VITALS (8 sets, daily range): BP systolic 120–149; BP diastolic 60–89; PULSE 71–86; RESP 16–18; TEMP 36.4–36.9; O2SAT 97–99; BMI 28.8
[2025-01-13] MEDS: Insulin Lispro 100 UNIT/ML INSULN.PEN SC ×4 (06:46→21:36)
[2025-01-13 07:22] LABS: Bedside Glucose 278 mg/dL (74-106)
--- NOTE | 2025-01-13 08:22 | NURSING ---
Called [facility] for bed update. No available beds at this time. Will notify
[2025-01-13] MEDS: Multivitamins,Therapeutic Tablet 1 TABLET PO (08:59)
[2025-01-13] MEDS: Metoprolol Tartrate 50 MG Tablet PO (09:00)
--- NOTE | 2025-01-13 09:36 | PN.HOSP_ITS ---
Reason for Visit Reason for Visit: Diagnoses Type 2 diabetes mellitus with hyperglycemia (01/10/25) Overweight (01/10/25) Other disorders of bilirubin metabolism (01/10/25) Chronic atrial fibrillation, unspecified (01/10/25) Other specified diseases of pancreas (01/10/25) Unspecified jaundice (01/10/25) Elevation of levels of liver transaminase levels (01/10/25) Personal history of malignant neoplasm of other parts of uterus (01/10/25) Acquired absence of both cervix and uterus (01/10/25) Subjective Subjective Patient seen and examined today, we have not yet obtained a bed for the patient at [facility] although she has been accepted there. Patient has no complaints to this examiner. Objective Data Objective Data Vital Signs: Vital Signs Temp Pulse Resp BP Pulse Ox O2 Del Method 97.5 F L 79 18 140/70 H 99 Room Air 01/13/25 08:55 01/13/25 09:00 01/13/25 08:55 01/13/25 08:55 01/13/25 08:55 01/13/25 08:55 Oxygen Delivery Method Room Air Weight: 67.1 kg Body Mass Index (BMI) 28.8 Intake & Output: Intake and Output for Last 24 Hours 01/11/25 01/12/25 01/13/25 23:59 23:59 23:59 Intake Total 110.25 / 310.25 400 / 400 Balance 110.25 / 310.25 400 / 400 Medical Nutrition Assessment Dietitian: Malnutrition Criteria Met Start: 01/10/25 10:36 Freq: Status: Active Protocol: Document 01/10/25 12:40 SB (Rec: 01/10/25 12:40 SB [id number]) Nutrition Malnutrition Evidence of Yes Malnutrition Exists Malnutrition (severe Chronic ): Evidenced By Suboptimal Energy Intake (Moderate),Weight Loss ( Moderate) Clinical Problem Altered Nutrient-Related Laboratory Values Etiology related to endocrine dysfunction/diabetes Signs/Symptoms as evidenced by A1C 13.2% and glucose 371mg/dL Status Active Problem Chronic Disease or Condition Related Malnutrition Etiology moderate related to inadequate oral intake Signs/Symptoms as evidenced by PO meeting <75% of estimated nutrition needs x 4 months and 10% unintentional weight loss x 6 months. Status Active Problem Recommendation Dietitian Recommend advanced diet as tolerated to 1800 calorie Recommendations/ controlled/consistent carbohydrate diet. Changes As diet is advanced, order 120ml glucerna shake TID with medpass. Will consult CARDIOLOGY NURSE PRACTITIONER d/t pt reporting difficulty chewing/ swallowing foods. Will monitor weight trends. Lab / Micro Data 01/11/25 05:48 01/11/25 05:48 Labs: Laboratory Results - last 24 hr 01/09/25 19:21: CA 19-9 Antigen 355 H, CA 19-9 Serial Monitor Not Reportable 01/12/25 22:23: POC Glucose 397 H 01/13/25 06:44: POC Glucose 278 H Radiography Diagnostic Testing: Radiology Impression Endo Retro Cholangiopancreatogram 01/12/25 12:20 IMPRESSION: Fluoroscopic services provided for ERCP. Reading Location: [place] [address] Physical Exam Narrative alert, oriented x3, no apparent distress, average body habitus and healthy appearing General Appearance: cooperative, well kempt and well developed Orientation / Consciousness: awake, oriented to person, oriented to place and oriented to time HEENT normocephalic, head/scalp atraumatic and moist oral mucous membranes Eyes PERRL, EOMs intact bilaterally and conjunctivae normal Neck supple, no JVD, thyroid normal and no carotid bruits General: trachea midline Resp normal respiratory effort and clear to auscultation bilaterally Auscultation: Negative for rales, rhonchi or wheezes Cardio regular rate, regular rhythm, no murmurs, no rub and no gallops GI normal to inspection, nondistended, normoactive bowel sounds, soft to palpation, non-tender and non-distended Extremity no clubbing, cyanosis or edema Skin Skin Narrative: Patient appears jaundiced Neuro oriented x3, CN's II-XII intact bilaterally, moves all extremities, no focal motor deficits and no sensory deficits noted Sensorium / Orientation: awake and alert Speech: speech normal Psych affect normal Assessment & Plan Assessment/Plan (1) Pancreatic mass: PLAN: Plan 1. Pancreatic mass-suspicious for pancreatic cancer, patient is awaiting a bed in [facility] for further care, gastroenterology was not able to cannulate the common bile duct on her ERCP #2 obstructive jaundice secondary to #1-complicates care, management, recovery, and prognosis #3 type 2 diabetes-patient is receiving sliding scale insulin per fingerstick blood sugars #4 essential hypertension-patient is on Cozaar and metoprolol, blood pressure will be monitored #5 chronic moderate protein and caloric malnutrition related to inadequate oral intake as evidenced by p.o. meeting less than 75% of estimated nutritional needs x 4 months and 10% unintentional weight loss x 6 months-diet was advanced 1800- calorie consistent carbohydrate diet, 120 mL of Glucerna shake 3 times daily with med Pass was ordered Total clinical time spent by myself addressing the patient's medical issues, reviewing all of her data, and collaborating with patient's care team: 35 minutes Charges/Coding Visit Charges Inpatient E&M: [id number] Subs Hosp L2
[2025-01-13 12:06] LABS: Bedside Glucose 302 mg/dL (74-106)
[2025-01-13 17:07] LABS: Bedside Glucose 356 mg/dL (74-106)
[2025-01-13] MEDS: 0.9% Saline Lock 10 ML Syringe IV (21:39)
[2025-01-13 22:36] LABS: Bedside Glucose 314 mg/dL (74-106)
[2025-01-14] VITALS (7 sets, daily range): BP systolic 136–160; BP diastolic 68–89; PULSE 75–82; RESP 16–18; TEMP 36.4–36.7; O2SAT 97–98; BMI 29.7
[2025-01-14] MEDS: Insulin Lispro 100 UNIT/ML INSULN.PEN SC ×4 (06:26→21:17)
[2025-01-14 06:48] LABS: Bedside Glucose 241 mg/dL (74-106)
--- NOTE | 2025-01-14 08:21 | PCM.PN.HOSP ---
Reason for Visit Reason for Visit: Diagnoses Type 2 diabetes mellitus with hyperglycemia (01/10/25) Overweight (01/10/25) Other disorders of bilirubin metabolism (01/10/25) Chronic atrial fibrillation, unspecified (01/10/25) Other specified diseases of pancreas (01/10/25) Unspecified jaundice (01/10/25) Elevation of levels of liver transaminase levels (01/10/25) Personal history of malignant neoplasm of other parts of uterus (01/10/25) Acquired absence of both cervix and uterus (01/10/25) Subjective Subjective Patient was seen and examined today, we have not received approval for her to be transferred to [facility] for further care at this time Objective Data Objective Data Vital Signs: Vital Signs Temp Pulse Resp BP Pulse Ox O2 Del Method 97.6 F L 78 16 152/88 H 98 Room Air 01/14/25 02:39 01/14/25 02:39 01/14/25 02:39 01/14/25 02:39 01/14/25 02:39 01/14/25 02:39 Oxygen Delivery Method Room Air Weight: 68.7 kg Body Mass Index (BMI) 29.7 Intake & Output: Intake and Output for Last 24 Hours 01/12/25 01/13/25 01/14/25 23:59 23:59 23:59 Intake Total 110.25 / 310.25 800 / 800 400 / 400 Balance 110.25 / 310.25 800 / 800 400 / 400 Medical Nutrition Assessment Dietitian: Malnutrition Criteria Met Start: 01/10/25 10:36 Freq: Status: Active Protocol: Document 01/13/25 15:38 SB (Rec: 01/13/25 15:38 SB [id number]) Nutrition Malnutrition Evidence of Yes Malnutrition Exists Malnutrition (severe Chronic ): Evidenced By Suboptimal Energy Intake (Moderate),Weight Loss ( Moderate) Clinical Problem Altered Nutrient-Related Laboratory Values Etiology related to endocrine dysfunction/diabetes Signs/Symptoms as evidenced by A1C 13.2% and glucose 276 mg/dL Status Active Problem Chronic Disease or Condition Related Malnutrition Etiology moderate related to inadequate oral intake Signs/Symptoms as evidenced by PO meeting <75% of estimated nutrition needs x 4 months and 10% unintentional weight loss x 6 months. Status Active Problem Recommendation Dietitian Adjust to consistent carbohydrate diet. Recommendations/ Discontinue 120ml glucerna shake TID with medpass. Changes Order 120ml vanilla glucerna shake TID with meals. Will monitor weight trends. Lab / Micro Data 01/11/25 05:48 01/11/25 05:48 Labs: Laboratory Results - last 24 hr 01/13/25 11:47: POC Glucose 302 H 01/13/25 16:47: POC Glucose 356 H 01/13/25 21:35: POC Glucose 314 H 01/14/25 06:25: POC Glucose 241 H Physical Exam Narrative alert, oriented x3, no apparent distress, average body habitus and healthy appearing General Appearance: cooperative, well kempt and well developed Orientation / Consciousness: awake, oriented to person, oriented to place and oriented to time HEENT normocephalic, head/scalp atraumatic and moist oral mucous membranes Eyes PERRL, EOMs intact bilaterally and conjunctivae normal Neck supple, no JVD, thyroid normal and no carotid bruits General: trachea midline Resp normal respiratory effort and clear to auscultation bilaterally Auscultation: Negative for rales, rhonchi or wheezes Cardio regular rate, regular rhythm, no murmurs, no rub and no gallops GI normal to inspection, nondistended, normoactive bowel sounds, soft to palpation, non-tender and non-distended Extremity no clubbing, cyanosis or edema Skin Skin Narrative: Patient appears jaundiced Neuro oriented x3, CN's II-XII intact bilaterally, moves all extremities, no focal motor deficits and no sensory deficits noted Sensorium / Orientation: awake and alert Speech: speech normal Psych affect normal Assessment & Plan Assessment/Plan (1) Pancreatic mass: PLAN: Plan 1. Pancreatic mass-suspicious for pancreatic cancer, patient is awaiting a bed in [facility] for further care #2 obstructive jaundice secondary to #1-complicates care, management, recovery, and prognosis #3 type 2 diabetes-patient is receiving sliding scale insulin per fingerstick blood sugars #4 essential hypertension-patient is on Cozaar and metoprolol, blood pressure will be monitored #5 chronic moderate protein and caloric malnutrition related to inadequate oral intake as evidenced by p.o. meeting less than 75% of estimated nutritional needs x 4 months and 10% unintentional weight loss x 6 months-diet was advanced 1800-calorie consistent carbohydrate diet, 120 mL of Glucerna shake 3 times daily with med Pass was ordered Total clinical time spent by myself addressing the patient's medical issues, reviewing all of her data, and collaborating with patient's care team: 35 minutes Charges/Coding Visit Charges Inpatient E&M: 86613 Subs Hosp L2
[2025-01-14] MEDS: Pantoprazole Sodium 40 MG Tablet PO (09:36)
[2025-01-14] MEDS: Metoprolol Tartrate 50 MG Tablet PO (09:36)
[2025-01-14] MEDS: Multivitamins,Therapeutic Tablet 1 TABLET PO (09:37)
[2025-01-14 12:56] LABS: Bedside Glucose 284 mg/dL (74-106)
--- NOTE | 2025-01-14 17:07 | PCM.DC.SUM ---
Providers Date of Admission: 01/10/25 Date of Discharge: 01/14/25 Primary Care Physician: Dr. Terell Scott MD Consultations 01/10/25 06:51 Consult: Gastroenterology Routine Consulting Provider: [facility] Reason for Consult: Pancreatic head mass with jaundice and hydropic gallbladder. EMERGENT Consult: No MD Notified: Yes Date Notified: 01/10/25 Time Notified: 06:51 Method of Notification: Text Reason For Visit: YELLOWING OF SKIN, EYE, URINE Diagnosis Discharge Diagnosis (1) Pancreatic mass: Status: Acute Code(s): K86.89 - Other specified diseases of pancreas Plan 1. Pancreatic mass-suspicious for pancreatic cancer, patient is awaiting a bed in [facility] for further care #2 obstructive jaundice secondary to #1-complicates care, management, recovery, and prognosis #3 type 2 diabetes-patient is receiving sliding scale insulin per fingerstick blood sugars #4 essential hypertension-patient is on Cozaar and metoprolol, blood pressure will be monitored #5 chronic moderate protein and caloric malnutrition related to inadequate oral intake as evidenced by p.o. meeting less than 75% of estimated nutritional needs x 4 months and 10% unintentional weight loss x 6 months-diet was advanced 1800-calorie consistent carbohydrate diet, 120 mL of Glucerna shake 3 times daily with med Pass was ordered #6 chronic atrial fibrillation Total clinical time spent by myself addressing the patient's medical issues, reviewing all of her data, and collaborating with patient's care team: 35 minutes Medications at Discharge Home Medications multivitamin 1 tab PO DAILY 06/19/21 pantoprazole 40 mg tablet,delayed release 40 mg PO DAILY gerd #90 tabs 08/28/21 metformin 500 mg tablet 500 mg PO BID 02/15/22 atorvastatin 20 mg tablet 20 mg PO QHS 03/07/23 losartan 100 mg tablet 100 mg PO DAILY 03/07/23 metoprolol tartrate 50 mg tablet 50 mg PO BID 11/21/23 benzocaine 15 mg-menthol 2.6 mg lozenges (Cepacol Sore Throat (benzocaine-menthol)) 1 cee mucous membrane Q2H PRN sore throat #16 ea 02/25/24 apixaban 5 mg tablet 5 mg PO BID #180 tabs 04/28/24 amlodipine 10 mg tablet 10 mg PO DAILY #90 tabs 11/10/24 Hospital Course Operations None Procedures - (ERCP) Summary of Care Provided Minutes Spent on Discharge: 31 Hospital Course: This 84-year-old female was seen in the emergency room at [facility] with complaints of discoloration of her [id number] yellowing of her eyes. Patient states her urine is dark and stool is reid colored. Workup in the emergency room included labs which showed a bilirubin to be highly elevated at 9.7, patient's liver enzymes were also elevated. CBC was unremarkable, CT of the abdomen and pelvis was obtained which showed evidence of a mass in the pancreatic head. Patient's common bile duct was dilated. It was felt that the patient should be transferred to tertiary facility for further care, [facility] agreed to accept the patient but had no beds at the time and so the patient was admitted to [place] [address]. She was seen in consultation by gastroenterology who performed an ERCP but was not able to cannulate the common bile duct. On 01/14/2025, patient was seen and examined:alert, oriented x3, no apparent distress, average body habitus and healthy appearing General Appearance: cooperative, well kempt and well developed Orientation / Consciousness: awake, oriented to person, oriented to place and oriented to time HEENT normocephalic, head/scalp atraumatic and moist oral mucous membranes Eyes PERRL, EOMs intact bilaterally and conjunctivae normal Neck supple, no JVD, thyroid normal and no carotid bruits General: trachea midline Resp normal respiratory effort and clear to auscultation bilaterally Auscultation: Negative for rales, rhonchi or wheezes Cardio irregular rate,irregular rhythm, no murmurs, no rub and no gallops GI normal to inspection, nondistended, normoactive bowel sounds, soft to palpation, non-tender and non-distended Extremity no clubbing, cyanosis or edema Skin Skin Narrative: Patient appears jaundiced Neuro oriented x3, CN's II-XII intact bilaterally, moves all extremities, no focal motor deficits and no sensory deficits noted Sensorium / Orientation: awake and alert Speech: speech normal Psych affect normal Patient was discharged to [facility] on 01/15/2025. Medical Records Data Medical Nutrition Assessment Dietitian: Malnutrition Criteria Met Start: 01/10/25 10:36 Freq: Status: Active Protocol: Document 01/13/25 15:38 SB (Rec: 01/13/25 15:38 SB [id number]) Nutrition Malnutrition Evidence of Yes Malnutrition Exists Malnutrition (severe Chronic ): Evidenced By Suboptimal Energy Intake (Moderate),Weight Loss ( Moderate) Clinical Problem Altered Nutrient-Related Laboratory Values Etiology related to endocrine dysfunction/diabetes Signs/Symptoms as evidenced by A1C 13.2% and glucose 276 mg/dL Status Active Problem Chronic Disease or Condition Related Malnutrition Etiology moderate related to inadequate oral intake Signs/Symptoms as evidenced by PO meeting <75% of estimated nutrition needs x 4 months and 10% unintentional weight loss x 6 months. Status Active Problem Recommendation Dietitian Adjust to consistent carbohydrate diet. Recommendations/ Discontinue 120ml glucerna shake TID with medpass. Changes Order 120ml vanilla glucerna shake TID with meals. Will monitor weight trends. Weight / BMI Weight Weight: 68.7 kg Body Mass Index (BMI) 29.7 ABG / Lab / Microbiology Data 01/11/25 05:48 01/11/25 05:48 Laboratory: Laboratory Results - last 24 hr 01/13/25 16:47: POC Glucose 356 H 01/13/25 21:35: POC Glucose 314 H 01/14/25 06:25: POC Glucose 241 H 01/14/25 12:23: POC Glucose 284 H D/C Instructions DC O2, CPAP, BIPAP Needs Home O2 Discharge instructions: No Meaningful Use Info Meaningful Use Meaningful Use Diagnoses (Choose all that apply): None applicable Ischemic Stroke Statin Dosing Therapy Reference: STATIN DOSE THERAPY REFERENCE: * Patients > 75 years receive moderate or high dose statin therapy. * Patients 75 years or YOUNGER should receive HIGH intensity statin dose unless contraindicated. You will be required to document reason for non-treatment if statin daily dose does not meet guidelines. HIGH DOSE STATIN THERAPY DAILY Atorvastatin > than or = to 40 mg Rosuvastatin > than or = to 20 mg Amlodipine + Atorvastatin > than or = to 2.5/40 mg Ezetimibe + Simvastatin 10/80 mg Simvastatin 80mg Discharge Plan Admission Admit Date/Time: 01/10/25 02:16 Primary Reason for Your Visit: yellowing of skin, eye, urine Attending Provider: Jose Wu Primary Care Provider: Terell Scott Consulting Providers: Oniel Golden; Keenan Celeste Discharge Orders/Prescriptions Prescriptions: No Action pantoprazole 40 mg tablet,delayed release (DR/EC) 40 mg PO DAILY Qty: 90 3RF multivitamin Tablet 1 tab PO DAILY metformin 500 mg tablet 500 mg PO BID metoprolol tartrate 50 mg tablet 50 mg PO BID losartan 100 mg tablet 100 mg PO DAILY atorvastatin 20 mg tablet 20 mg PO QHS Patient Comments: TAKE 1 TABLET BY MOUTH ONCE DAILY apixaban 5 mg tablet 5 mg PO BID Qty: 180 3RF Cepacol Sore Throat (janneth-men) 15-2.6 mg lozenge 1 cee mucous membrane Q2H PRN (Reason: sore throat) Qty: 16 0RF amlodipine 10 mg tablet 10 mg PO DAILY Qty: 90 3RF Referrals / Follow Up: Terell Scott MD [Primary Care Provider] - Disposition Disposition (needs filled in before D/C Order can be placed): Acute Care Hospital Charges/Coding Visit Charges Inpatient E&M: 48539 Disch Hosp >30min
[2025-01-14 17:34] LABS: Bedside Glucose 282 mg/dL (74-106)
--- NOTE | 2025-01-14 18:50 | NURSING ---
Report given to Fanny AGUDELO at [facility] for floor 5400 as pt is going into bed 5409. Son and daughter here in the room and are aware that there is a bed.
[2025-01-14 21:38] LABS: Bedside Glucose 417 mg/dL (74-106)
== END 2025-01-14 22:31 | disposition short-term general hospital (02) | DRG 435 ==
LOC: ED 22:43 → MS3 01-10 01:12
PROVIDERS: Emergency Medicine; Internal Medicine Gastroenterology; Admitting Provider Internal Medicine; Emergency Provider Emergency Medicine; PCP Family Medicine; Visit Provider Internal Medicine
PROC: 0DJ08ZZ Inspection of Upper Intestinal Tract, Via Natural or Artificial Opening Endoscopic (ICD-10-PCS; CPT 43260; principal; 2025-01-12 11:10)
DX: C25.9 Malignant 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, unspecified (principal); K83.1 Obstruction of bile duct; E44.0 Moderate protein-calorie malnutrition; I48.20 Chronic atrial fibrillation, unspecified; R17 Unspecified jaundice; G31.84 Mild cognitive impairment of uncertain or unknown etiology; K86.89 Other specified diseases of pancreas; E11.65 Type 2 diabetes mellitus with hyperglycemia; I10 Essential (primary) hypertension; J45.909 Unspecified asthma, uncomplicated; K21.9 Gastro-esophageal reflux disease without esophagitis; K83.8 Other specified diseases of biliary tract; E78.5 Hyperlipidemia, unspecified; M19.90 Unspecified osteoarthritis, unspecified site; Z79.4 Long term (current) use of insulin; K86.9 Disease of pancreas, unspecified; Z79.01 Long term (current) use of anticoagulants; Z86.73 Personal history of transient ischemic attack (TIA), 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 deficits; Z90.710 Acquired absence of both cervix and uterus; E66.3 Overweight; Z68.29 Body mass index [BMI] 29.0-29.9, adult; Z87.891 Personal history of nicotine dependence; Z79.84 Long term (current) use of oral hypoglycemic drugs; Z80.0 Family history of malignant neoplasm of digestive organs; Z79.891 Long term (current) use of opiate analgesic; R74.01 Elevation of levels of liver transaminase levels; Z79.2 Long term (current) use of antibiotics; Z80.1 Family history of malignant neoplasm of trachea, bronchus and lung; Z75.1 Person awaiting admission to adequate facility elsewhere
CPT/HCPCS: 36415; 74177; 74330; 76000; 80048; 80053; 80061; 80076; 82962; 83036; 83690; 83735; 84100; 84443; 85025; 85610; 85730; 86301; 92610; 93005; 94668; 97802; 97803; 99284; Q9967; A4216; J2405

== ENCOUNTER 2025-05-30 21:27 | Inpatient (IN) | payer MEDICARE, MEDICAID, SELFPAY ==
[2025-05-30 21:27] VITALS: BP 175/84; PULSE 102; RESP 18; TEMP 37.8; O2SAT 98
[2025-05-30 21:43] VITALS: BMI 29.9
--- NOTE | 2025-05-30 22:10 | EKG12_ITS ---
Test Reason : GEN ILL Blood Pressure : */* mmHG Vent. Rate : 91 BPM Atrial Rate : * BPM P-R Int : * ms QRS Dur : 86 ms QT Int : 348 ms P-R-T Axes : * -10 137 degrees QTcB Int : 428 ms Atrial fibrillation Moderate voltage criteria for LVH, may be normal variant ( R in aVL , Wali product ) ST & T wave abnormality, consider anterolateral ischemia Abnormal ECG Confirmed by BERNARD HELMS, RAKESH ([id number]), supervising editor trailer CARLOS HARRIS ([id number]) on 05/31/2025 9:49:55 AM Referred By: Confirmed By: RAKESH WAGNER MD
--- NOTE | 2025-05-30 22:18 | EDS_ITS ---
HPI History of Present Illness Chief Complaint: General Illness Informant: patient and family Narrative Narrative: Here with son for evaluation of feeling sick since yesterday. Reports feeling weak having nausea fever today. No cough. Urine is darker. No burning. 3 bowel moods today nonbloody none loose this is normal for her. Mild abdominal discomfort. No chest pains. Return from [place] 8 days ago was feeling well. History of A-fib on Eliquis. History of TIA coronary disease with stent in the past. She is on baby aspirin. Denies any sick contacts. Diabetic, ran out of her insulin 15 hours ago she is on 10 units of 70/30. Stent placed in her pancreatic duct in the past history of pancreatic cancer. Reports mild myalgias. [facility] Medical History Pancreatic mass History of uterine cancer Overweight (BMI 25.0-29.9) Type 2 diabetes mellitus with hyperglycemia Transaminitis Hyperbilirubinemia Jaundice Elevated lipase Mass of head of pancreas Atrial fibrillation Neck pain, bilateral History of TIA (transient ischemic attack) Stroke/cerebrovascular accident Essential hypertension Complaint of melena Transient ischemic attack (03/2021) History of Lundberg's palsy GERD (gastroesophageal reflux disease) History of cancer History of blood transfusion Right atrial mass Former smoker Asthma Diabetes mellitus, type 2 Home Medications ?Medication ?Instructions ?Recorded ?Last Taken ?Type pantoprazole 40 mg tablet,delayed 40 mg PO DAILY gerd #90 tabs 08/28/21 Unknown Rx release atorvastatin 20 mg tablet 20 mg PO QHS 03/07/23 Unknow n History losartan 100 mg tablet 100 mg PO DAILY 03/07/23 Unk nown History metoprolol tartrate 50 mg tablet 50 mg PO BID 11/21/23 Unknown History apixaban 5 mg tablet 5 mg PO BID #180 tabs Unknown Rx amlodipine 10 mg tablet 10 mg PO DAILY #90 tabs 10/28 02/19 Unknown Rx Allergy/AdvReac Type Severity Reaction Status Date / Time Penicillins Allergy Severe Anaphylaxis Verified 05/30/25 21:31 tetracycline Allergy Severe anaphylaxis Verified 05/30/25 21:31 tramadol (From Ultram) AdvReac Severe syncope Verified 05/30/25 21:31 Family History Mother Pancreatic cancer CAD (coronary artery disease) Father Cancer Lung cancer Brother Parkinson disease Surgical History History of surgery H/O: hysterectomy H/O hemorrhoidectomy History of bladder surgery H/O rhinoplasty History of cataract surgery History of appendectomy Social History Smoking Status: Former smoker how long ago did patient quit smokin+ years alcohol intake: never substance use type: does not use ROS ROS ED Constitutional Constitutional ED: Reports fever(s); Denies chills or sweats ENT ENT ED: Denies sore throat Cardiovascular Cardiovascular: Denies chest pain, leg edema, palpitations or racing heartbeat Respiratory/Chest Respiratory/Chest: Denies cough, dyspnea or dyspnea on exertion Gastrointestinal Gastrointestinal: Reports nausea; Denies abdominal pain, diarrhea or vomiting Genitourinary Genitourinary ED: Reports other Details: Darker urine ; Denies dysuria, hematuria or urinary frequency Musculoskeletal Musculoskeletal: Reports myalgias; Denies back pain, extremity pain or neck pain Integumentary Denies rash or wounds Neurologic Neurologic: Reports weakness; Denies headache(s) or paresthesias EXAM Physical Exam Const Vital Signs: 05/30/25 21:27 05/30/25 22:36 05/30/25 23:00 Temperature 100.1 F H 100.0 F H 99.4 F H Temperature Source Oral Oral Oral Pulse Rate 102 H 101 H 87 Respiratory Rate 18 20 H 20 H Blood Pressure 175/84 H 156/66 H 157/78 H Blood Pressure Mean 114 96 104 Pulse Ox 98 97 98 Oxygen Delivery Method Room Air Room Air Room Air 05/30/25 23:27 05/31/25 00:00 05/31/25 01:00 Temperature 99.6 F H 99.4 F H Temperature Source Temporal Oral Pulse Rate 88 86 83 Respiratory Rate 21 H 18 16 Blood Pressure 174/96 H 115/64 113/54 L Blood Pressure Mean 122 81 73 Pulse Ox 96 94 Oxygen Delivery Method Room Air Room Air 05/31/25 02:00 05/31/25 03:00 05/31/25 03:00 Temperature 98.9 F 98.7 F Temperature Source Axillary Temporal Pulse Rate 74 76 74 Respiratory Rate 16 15 Blood Pressure 132/55 H 120/58 L Blood Pressure Mean 80 78 Pulse Ox 96 100 Oxygen Delivery Method Room Air Room Air 05/31/25 03:19 Temperature 98.7 F Temperature Source Pulse Rate 78 Respiratory Rate 15 Blood Pressure 120/58 L Blood Pressure Mean 78 Pulse Ox 100 Oxygen Delivery Method Positive well nourished and well developed Constitutional Narrative: Nontoxic General Appearance ED: well developed and NAD HEENT HEENT Narrative: Mild dry mucosal membrane normocephalic and atraumatic Eyes Eyes Narrative: mild scleral icterus Neck full ROM Chest Wall Chest: Negative for tenderness Resp normal respiratory effort and normal air movement Effort and Inspection: symmetric chest movement; Negative for respiratory distress Cardio regular rate and no murmurs Rhythm: abnormal rhythm Peripheral Pulses: pulses 2+ throughout GI normal to inspection, nondistended, normoactive bowel sounds and non-tender GI Narrative: Negative Moreira's or McBurney's tenderness. Palpation: Negative for guarding or rebound tenderness present Extremity normal to inspection General Extremety ED: Negative for edema or tenderness General Extremity: Negative for edema Neuro oriented x3 and no sensory deficits noted Sensorium / Orientation: awake and alert Skin no rashes or lesions noted and no wounds MDM MDM MDM Narrative Medical decision making narrative: Interventions / MDM: Differential diagnosis: Fever, cholangitis, pancreatic cancer, history of biliary stent, dehydration. Diagnosis considered but do not suspect: UTI however urine negative. My EKG interpretation: Rate controlled A-fib 91, no ST changes, T wave versions lateral leads aVL. Nonspecific. Imaging independently reviewed and interpreted by myself: CT chest abdomen pelvis with IV contrast: Nonspecific left axillary lymph adenopathy. Nonvisualized pancreatic mass seen previously. Biliary stent in place. No other acute process. External documents reviewed: N/A Test considered but not ordered:N/A ED course: Patient temp 100.1, dry mucosal membranes. Reporting viral-like symptoms without cough. Labs with liver enzymes ordered. Urine ordered. Viral swab. IV fluids given along with antiemetics and Tylenol with myalgias. COVID flu RSV also sent. 2329 urine negative had a white count of 13.9 she has transaminitis with a bilirubin of 4.8. Reviewing the records in December bilirubin as high as 10, she was transferred to [facility] As ERCP was attempted and unsuccessful. This was a new diagnosis in December I did discuss with patient son and her daughter on the phone. Patient stopped treatment due to side effects. There is reason why she went to [place] to see family. I discussed palliative and hospice however patient and family states she does not like people in the home. Reported she wants to in her home with family. Discussed with them if this is the patient's wishes we should honor her wishes however we should have D NR comfort care papers. I discussed difference tween comfort care Comfort Care arrest. She was still like treatment. Therefore we will make her DNR Comfort Care arrest. They agree with his plan. They agree with reimaging this evening for evaluation secondary to her fevers. Chest abdomen pelvis IV contrast for evaluation. Will start antibiotics for concerning cholangitis with her history. Anaphylaxis to penicillin and tetracycline. IV Levaquin and Flagyl ordered. Blood pressure stable. I discussed with her care at [facility] For transfer however patient states she would like to go home. Discussed at this time we will obtain blood cultures image studies with giving her antibiotics and will reevaluate her decision. 0310: CT results biliary stent in place. Per radiology no visualization of the pancreatic mass that was seen previously. Vitals are stable. Fever improved with Tylenol. Antibiotics were given. Patient does not want aggressive treatment for her history of cancer. However concerns for cholangitis with her fever and her cancer history with a biliary stent. Patient not opposed to admission here for antibiotic treatment. I will discuss with hospitalist. I spoke with Dr. Chisholm for admission. Re-evaluation: stable Disposition discussed with patient/family/significant other: Patient and family Case discussed with consulting clinician: Hospitalist This note was generated with Where Was it Filmed dictation software. It may contain incorrect words, spelling, and punctuation that were not noted in checking the note before signing. Lab Data Attestation: I reviewed the patient's lab results. Labs: Laboratory Results - last 24 hr 05/30/25 05/30/25 21:55 22:38 WBC 13.9 H RBC 4.13 L Hgb 11.1 L Hct 33.8 L MCV 81.8 MCH 26.9 L MCHC 32.8 RDW Std Deviation 44.9 H RDW Coeff of Colton 14.9 H Plt Count 185 MPV 12.7 H Immature Gran % (Auto) 0.500 Neut % (Auto) 84.7 H Lymph % (Auto) 3.3 L Thayer % (Auto) 11.4 H Eos % (Auto) 0.0 Baso % (Auto) 0.1 Absolute Neuts (auto) 11.7 H Absolute Lymphs (auto) 0.46 L Nucleated RBC % 0 Differential Comment SCANNED Sodium 131 L Potassium 3.1 L Chloride 97 L Carbon Dioxide 20.0 L Anion Gap 14 BUN 9 Creatinine 0.74 Estim Creat Clear Calc 45.50 L Est GFR (MDRD) Non-Af 80 BUN/Creatinine Ratio 12.0 Glucose 257 H Lactic Acid 1.6 Calcium 9.1 Total Bilirubin 4.82 H AST 135 H ALT 195 H Alkaline Phosphatase 466 H Total Protein 7.3 Albumin 3.9 Globulin 3.5 Albumin/Globulin Ratio 1.1 Lipase 49 Urine Color Yellow Urine Clarity Clear Urine pH 7.0 Ur Specific [place] 1.005 Urine Protein 30 H Urine Glucose (UA) 1000 H Urine Ketones Negative Urine Occult Blood 25 H Urine Nitrite Negative Urine Bilirubin Negative Urine Urobilinogen Normal Ur Leukocyte Esterase Negative Urine RBC 0 SEEN Urine WBC 0 SEEN Ur Squamous Epith Cells 5-10 SEEN Urine Bacteria 2+ Urine Mucus 0 SEEN Radiography Diagnostic Testing: Clinical Impression(s) from Imaging Studies Chest/Abdomen/Pelvis CT 05/30/25 23:36 IMPRESSION: Left axillary adenopathy, nonspecific. Possibly inflammatory in etiology. No acute chest injury is noted. Treated pancreatic head tumor is not well seen and may be decreased in size indicating response to treatment. Biliary stent in good position. No abdominopelvic injury noted. Reading Location: [place] [address] Discharge Plan Triage Chief Complaint: General Illness ED Provider: Yeyo Valentine Dx/Rx/DC Orders Clinical Impression: Fever, Cholangiolitis, History of biliary duct stent placement, History of pancreatic cancer, DNR no code (do not resuscitate) Prescriptions: No Action pantoprazole 40 mg tablet,delayed release (DR/EC) 40 mg PO DAILY Qty: 90 3RF metoprolol tartrate 50 mg tablet 50 mg PO BID losartan 100 mg tablet 100 mg PO DAILY atorvastatin 20 mg tablet 20 mg PO QHS Patient Comments: TAKE 1 TABLET BY MOUTH ONCE DAILY apixaban 5 mg tablet 5 mg PO BID Qty: 180 3RF amlodipine 10 mg tablet 10 mg PO DAILY Qty: 90 3RF Primary Care Provider: Terell Scott Referrals: Terell Scott MD [Primary Care Provider] - Print Language: [place] Disposition Disposition: Acute Care Hospital [facility]
[2025-05-30] MEDS: 0.9% Normal Saline (1000mL) 1,000 ML 1000 ML IV (22:33)
[2025-05-30 22:36] VITALS: BP 156/66; PULSE 101; RESP 20; TEMP 37.8; O2SAT 97
[2025-05-30 22:37] LABS: Hematocrit 33.8 % (37-47); Hemoglobin 11.1 g/dL (12.0-15.0); Immature Granulocytes Count 0.070 X10^3/uL (0.0-0.0); Mean Corp Hgb Conc 32.8 g/dL (32-36); Mean Corpuscular Volume 81.8 fL (81-99); Mean Platelet Vol. 12.7 fl (6.2-12.0); NRBC Flagged by Analyzer 0 % (0-5); POSITIVE DIFFERENTIAL YES; Platelet Count 185 K/mm3 (150-450); RBC Distribution Width CV 14.9 % (11.6-14.6); RBC Distribution Width SD 44.9 fl (35.1-43.9); Red Blood Count 4.13 M/mm3 (4.2-5.4); White Blood Count 13.9 K/mm3 (4.4-11.0)
[2025-05-30 22:41] LABS: Differential Indicated SCAN CRITERIA MET
[2025-05-30 22:42] LABS: Mucous, Urine 0 SEEN /hpf (<or=2+); Red Blood Cells-Urine 0 SEEN /hpf (0-5)
[2025-05-30 22:44] LABS: Color, Urine Yellow (Yellow); Glucose, Dipstick 1000 mg/dl (Normal); Ketone-Dipstick Negative (Negative); Leukocyte Esterase-Dipstick Negative /ul (Negative); Nitrite-Dipstick Negative (Negative); Occult Blood-Urine 25 /ul (Negative); Protein-Dipstick 30 mg/dl (Negative); Specific Gravity, Urine 1.005 (1.002-1.030); Urine Bilirubin Dipstick Negative (Negative)
--- OUTSIDE RECORDS SUMMARY | 2025-05-30 22:50 | XMS RPT_ITS | CCD ---
Author Organization [facility] Care Team Providers Care Taper And Floater Name Role Phone Henok Martinez MD Primary Care Provider Michelle, Dr. Figueredo Primary Care Provider Dr. Henok Martinez Referring Provider Dr. Zachary Sarabia Attending Provider Henok Martinez MD Primary Care Provider Dr. Henok Matrinez Primary Care Provider Dr. Henok Martinez Referring Provider Dr. Jatinder Khan Attending Provider Henok Martinez MD Primary Care Provider Dr. Henok Martinez Primary Care Provider Michelle, Dr. Figueredo Referring Provider Dr. Zachary Sarabia Attending Provider Haagen LEAD JAVA SOFTWARE ENGINEER.POLE INCISOR OPERATOR, Clarita Unavailable Suppan LEAD JAVA SOFTWARE ENGINEER.POLE INCISOR OPERATOR, Virginia A Unavailable [phone] Suppan LEAD JAVA SOFTWARE ENGINEER.POLE INCISOR OPERATOR, Virginia A Unavailable [phone] Suppan LEAD JAVA SOFTWARE ENGINEER.POLE INCISOR OPERATOR, Virginia A Unavailable [phone] Humberto RN, Brett Unavailable [phone] Henok Martinez MD Primary Care Provider Dr. Henok Martinez MD Attending Provider Dr. Henok Martinez MD Referring Provider Dr. Hung Remy DO Emergency Provider [phone] Golden DO, Dr. Oniel Admit Provider Unavail able de David DO, Dr. Engle Attending Provider Unav ailable Jonel DO, Dr. Persaud Emergency Provider de David DO, Dr. Engle Admit Provider Unavail able de David DO, Dr. Engle Other Provider Unavail able Terlizzie DO, Dr. Garcia Attending Provider [phone] Booker DO, Dr. Hussein Other Provider Jazmin DO, Dr. Garcia Other Provider Stephanie DO, Dr. Rueda Attending Provider Arun AGUDELO, Stuart Trevino Unavailable Unavailable Paramjit HELMS, Juan Miguel Unavailable Royer AGUDELO, Maria Isabel Unavailable Escobar Rayo Unavailable Unavailable Ayaz Nguyễn MD Unavailable Addison Padilla Unavailable Unavailhallie Cagle RN, Paulette Zuñiga Unavailable Unavailable MICHELLE, HENOK J Primary Care Unavailable VIRGINIA REINA Referring Unavailable MICHELLE, HENOK J Primary Care Unavailable VIRGINIA REINA Referring Unavailable MICHELLE, HENOK J Primary Care Unavailable BLU BOGGS II Admitting Unavailable ROSALINDA GONSALVES Attending Unavailable ASHUTOSH FREEMAN Consulting Unavailable VIN GUERRA Attending Unavailable LENA PACE Referring Unavailable MICHELLE, HENOK J Primary Care Unavailable ADRIÁN SANDHU Attending Unavailab LENA Rankin Referring Unavailable MICHELLE, HENOK J Primary Care Unavailable AYAZ NGUYỄN Attending Unavailable MICHELLE, HENOK J Primary Care Unavailable AYAZ NGUYỄN Attending Unavailable MICHELLE, HENOK J Primary Care Unavailable GUILLE GARNICA Referring Unavailabl e MICHELLE, HENOK J Primary Care Unavailable TIGRE PRESTON Admitting Unavailable CIELO LANCASTER Attending Unavailable FAZAL BREEN Consulting Unavailable Lamar Stoner MD Unavailable Mohit Brown Attending Unavailable Oniel Golden Consulting Unavailable Oniel Golden Admitting Unavailable Oniel Golden Referring Unavailable [place], Henok Primary Care Unavailable Keenan Celeste Consulting Unavailable Jose Wu Consulting Unavailable Jose Wu Attending Unavailable Michelle, Henok Referring Unavailable Michelle, Henok Attending Unavailable Michelle, Henok Primary Care Unavailable Michelle, Henok Primary Care Unavailable Guille Garnica Attending Unavailable Oniel Golden Admitting Unavailable de Oniel Hernandez Consulting Unavailable [place], Henok Primary Care Unavailable Jose Wu Attending Unavailable Keenan Celeste Consulting Unavailable [place], Henok Primary Care Unavailable Cornell, Zachary Attending Unavailable Babatunde Worthington Referring Unavailable Michelle, Henok Referring Unavailable [place], Henok Primary Care Unavailable Cornell, Zachary Attending Unavailable Jatinder Khan Referring Unavailable Jatinder Khan Attending Unavailable [place], Henok Primary Care Unavailable de Oniel Hernandez Attending Unavailable MICHELLE, HENOK J Primary Care Unavailable JUAN MIGUEL YUSUF Referring Unavailable MICHELLE, HENOK J Referring Unavailable MICHELLE, HENOK J Primary Care Unavailable MICHELLE, HENOK Becerril Primary Care Unavailable JUAN MIGUEL YUSUF Referring Unavailable MICHELLE, HENOK Becerril Attending Unavailable MICHELLE, HENOK J Primary Care Unavailable MICHELLE, HENOK J Primary Care Unavailable JUAN MIGUEL YUSUF Referring Unavailable MICHELLE, HENOK J Primary Care Unavailable JUAN MIGUEL YUSUF Referring Unavailable MICHELLE, HENOK Becerril Attending Unavailable MICHELLE, HENOK Becerril Primary Care Unavailable MICHELLE, HENOK Becerril Primary Care Unavailable JUAN MIGUEL YUSUF Referring Unavailable MICHELLE, HENOK Becerril Primary Care Unavailable JUAN MIGUEL YUSUF Referring Unavailable MICHELLE, HENOK Becerril Primary Care Unavailable JUAN MIGUEL YUSUF Attending Unavailable MICHELLE, HENOK Becerril Referring Unavailable MICHELLE, HENOK Becerril Primary Care Unavailable MICHELLE, HENOK Becerril Referring Unavailable MICHELLE, HENOK Becerril Primary Care Unavailable MICHELLE, HENOK Becerril Attending Unavailable MICHELLE, HENOK Becerril Primary Care Unavailable JUAN MIGUEL YUSUF Referring Unavailable MICHELLE, HENOK Becerril Primary Care Unavailable JUAN MIGUEL YUSUF Referring Unavailable MICHELLE, HENOK Becerril Primary Care Unavailable MICHELLE, HENOK Becerril Primary Care Unavailable NANCY MEDLEY Referring Unavailable MICHELLE, HENOK Becerril Primary Care Unavailable VIRGINIA REINA Attending Unavailable MICHELLE, HENOK Becerril Primary Care Unavailable NANCY MEDLEY Attending Unavailable MICHELLE, HENOK Becerril Primary Care Unavailable JUAN MIGUEL YUSUF Referring Unavailable MICHELLE, HENOK Becerril Primary Care Unavailable MICHELLE, HENOK Becerril Attending Unavailable MICHELLE, HENOK J Primary Care Unavailable MICHELLE, HENOK J Primary Care Unavailable JUAN MIGUEL YUSUF Referring Unavailable MICHELLE, HENOK J Attending Unavailable HENOK MARTINEZ Primary Care Unavailable ANGELIA HART Attending Unavailable HENOK MARTINEZ Primary Care Unavailable HENOK MARTINEZ Primary Care Unavailable HENOK MARTINEZ Referring Unavailable HENOK MARTINEZ Primary Care Unavailable JUAN MIGUEL YUSUF Referring Unavailable ASHUTOSH FREEMAN Referring Unavailable HENOK MARTINEZ Primary Care Unavailable JUAN MIGUEL YUSUF Attending Unavailable HENOK MARTINEZ Primary Care Unavailable JUAN MIGUEL YUSUF Referring Unavailable JUAN MIGUEL YUSUF Attending Unavailable Allergies Allergy Classification Reported Allergen(s) Allergy Type Date of Onset Reaction(s) Facility (10 sources) Penicillins; Translations: [PENICILLINS] Drug Allergy 1 Anaphylaxis [facility] (20 sources) Tetracycline; Translations: [TETRACYCLINE] Drug Allergy 1 Rash [facility] (20 sources) Penicillins Drug Allergy 1 Anaphylaxis [facility] (8 sources) Penicillins Allergy to substance 3 Anaphylaxis [facility] (20 sources) traMADol; Translations: [TRAMADOL] Drug Allergy 4 Intolerance [facility] (20 sources) Penicillins Drug Allergy 1 Anaphylaxis [facility] (1 source) Penicillins Drug allergy (disorder) 5 [facility] (1 source) Tetracycline Drug Allergy 5 [facility] (1 source) traMADol Drug Allergy 5 [facility] Medications Current Medications Medication Drug Class(es) Dates Sig (Normalized) Sig (Original) amLODIPine 10 mg oral tablet (20 sources) Dihydropyridine Calcium Channel [facility] Start: 11-21-2023 End: 11-10-2024 take 1 tablet by mouth once daily amLODIPine (NORVASC) 10 mg tablet Take 10 mg by mouth once daily. 11/21/2023 Active Start: 08-20-2021 End: 10-01-2022 take 1 tablet by mouth once daily Amlodipine 10 mg tablet Discontinued 10 mg PO DAILY 90 August 28, 2021 10:08am February 15, 2022 10:19am Comment on above: Take 10 mg by mouth once daily. apixaban 5 mg oral tablet (20 sources) Factor Xa Inhibitor Start: 04-28-2024 End: 06-03-2026 take 1 tablet by mouth twice daily ELIQUIS 5 mg tab(s) Indications: Atrial fibrillation, unspecified type (HCC) Take 1 tablet by mouth two times a day. 180 tablet 3 03/30/2025 03/30/2026 Active Start: 05-04-2021 End: 05-01-2024 take 1 tablet by mouth twice daily Apixaban (Eliquis) 2.5 mg tablet Discontinued 2.5 mg PO TWICE A DAY 180 March 20, 2024 1:18pm April 28, 2024 3:27pm Comment on above: Take 2.5 mg by mouth twice daily. Take 1 tablet by rina th twice daily. Take 1 tablet by rina th two times a day. atorvastatin 20 mg oral tablet (20 sources) HMG-CoA Reductase Inhibitor Start: End: take 1 tablet by mouth once daily atorvastatin (LIPITOR) 20 mg tablet Indications: History of CVA (cerebrovascular accident) Take 1 tablet by mouth once daily. 90 tablet 3 03/30/2025 03/30/2026 Active Start: 04-20-2021 End: 10-01-2022 take 1 tablet by mouth once daily Atorvastatin 40 mg tablet Discontinued 40 mg PO DAILY 90 May 26, 2021 3:08pm February 15, 2022 10:19am Comment on above: Take 40 mg by mouth once daily. Take 1 tablet by rina th once daily. azithromycin 250 mg oral tablet (15 sources) Macrolide Antimicrobial Start: 02-06-20 End: 02-11-20 take 2 tablets by mouth once daily, then take 1 tablet by mouth once daily azithromycin (ZITHROMAX) 250 mg tablet Take 2 tablets by mouth once daily for 1 day, THEN 1 tablet once daily for 4 days. 6 tablet 02/05/2025 02/10/2025 Active Start: 02-21-2024 End: 02-26-2024 azithromycin (ZITHROMAX Z-PA K) 250 mg tablet Take 2 tablets day one, then, 1 tablet daily until gone. 5 tablet 0 02/21/2024 02/26/2024 Active Start: 02-07-2023 azithromycin ( ZITHROMAX) 250 mg tablet benoxinate hydrochloride 4 mg/ml / fluorescein sodium 3 mg/ml ophthalmic solution (1 source) Diagnostic Dye Start: 04-28-2024 End: 04-29-2024 fluorescein-benoxinate 0.3-0.4 % 1 Drop (FLURESS) benzonatate 100 mg oral capsule (1 source) Non-narcotic Antitussive Start: 10-13-2024 End: 10-28-2024 take 1 capsule by mouth three times daily as needed benzonatate (TESSALON PERLE) 100 mg capsule Indications: Acute bronchitis, unspecified organism Take 1 capsule by mouth three times a day as needed for up to 15 days. 45 capsule 10/13/2024 10/28/2024 Active Blood Pressure Test Kit-Large (SURELIFE ARM BP MONITOR) (20 sources) Start: 04-03-2023 Blood Pressure Test Kit-Large (SURELIFE ARM BP MONITOR) 1 Each once daily. 1 Each 04/03/2023 Suspended Start: 04-03-2023 Blood Pressure Test Kit-Large (SURELIFE ARM BP MONITOR) 1 Each once daily. 1 Each 04/03/2023 Active Start: 04-03-2023 Blood Pressure Test Kit-Large (SURELIFE ARM BP MONITOR) 1 Each once daily. 1 Each 0 04/03/2023 Active Comment on above: 1 Each once daily. Blood-Glucose Meter (2 sources) Start: 01-29-2025 End: 01-30-2025 Blood-Glucose Meter Indications: Type 2 diabetes mellitus with hyperglycemia, with long-term current use of insulin (HCC) Test Four times a day. Insulin Dep? Yes uncontrolled sm 1 each 01/29/2025 01/30/2025 Active Blood-Glucose Meter,Continuous (FREESTYLE TOLU 3 READER) misc (20 sources) Start: 01-20-2025 Blood-Glucose Meter,Continuous (FREESTYLE TOLU 3 READER) misc Indications: Type 2 diabetes mellitus without complication, without long-term current use of insulin (HCC) Use to check blood sugar at least four (4) times daily. 1 Each 01/20/2025 Suspended Start: 01-20-2025 Blood-Glucose Meter,Continuous (FREESTYLE TOLU 3 READER) misc Indications: Type 2 diabetes mellitus without complication, without long-term current use of insulin (HCC) Use to check blood sugar at least four (4) times daily. 1 Each 01/20/2025 Active Start: 01-19-2025 End: 01-20-2025 Blood-Glucose Meter,Continuo us (FREESTYLE TOLU 3 READER) misc Indications: Type 2 diabetes mellitus without complication, without long-term current use of insulin (HCC) Use to check blood sugar at least four (4) times daily. 1 Each 01/19/2025 01/20/2025 Discontinued End: 01-19-2025 Blood-Glucose Meter,Continuo us (FREESTYLE TOLU 3 READER) misc Use to check blood sugar at least four (4) times daily. 1 Each 01/19/2025 Discontinued Blood-Glucose Sensor (FREEST YLE TOLU 3 PLUS SENSOR) benjamin (20 sources) Start: 04-12-2025 Blood-Glucose Sensor (FREESTYLE TOLU 3 PLUS SENSOR) benjamin Indications: Type 2 diabetes mellitus without complication, without long-term current use of insulin (HCC) Apply new sensor every fifteen (15) days to upper arm. 6 each 4 04/12/2025 Active Start: 01-20-2025 End: 04-12-2025 Blood-Glucose Sensor (FREEST YLE TOLU 3 PLUS SENSOR) benjamin Indications: Type 2 diabetes mellitus without complication, without long-term current use of insulin (HCC) Apply new sensor every fifteen (15) days to upper arm. 6 Each 4 01/20/2025 04/12/2025 Discontinued Start: 01-20-2025 Blood-Glucose Sensor (FREESTYLE TOLU 3 PLUS SENSOR) benjamin Indications: Type 2 diabetes mellitus without complication, without long-term current use of insulin (HCC) Apply new sensor every fifteen (15) days to upper arm. 6 Each 4 01/20/2025 Suspended Start: 01-20-2025 Blood-Glucose Sensor (FREESTYLE TOLU 3 PLUS SENSOR) benjamin Indications: Type 2 diabetes mellitus without complication, without long-term current use of insulin (HCC) Apply new sensor every fifteen (15) days to upper arm. 6 Each 4 01/20/2025 Active Start: 01-19-2025 End: 01-20-2025 Blood-Glucose Sensor (FREEST YLE TOLU 3 PLUS SENSOR) benjamin Indications: Type 2 diabetes mellitus without complication, without long-term current use of insulin (HCC) Apply new sensor every fifteen (15) days to upper arm. 6 Each 4 01/19/2025 01/20/2025 Discontinued End: 01-19-2025 Blood-Glucose Sensor (FREEST YLE TOLU 3 PLUS SENSOR) benjamin Apply new sensor every fifteen (15) days to upper arm. 6 Each 4 01/19/2025 Discontinued dextromethorphan hydrobromide 2 mg/ml / guaiFENesin 20 mg/ml oral solution (3 sources) Uncompetitive N-okqmad-C-aspartate Receptor Antagonist, Sigma-1 Agonist Start: 02-14-2025 End: 02-19-2025 take 10 mL by mouth every four hours as needed guaiFENesin-dextromethorphan (ROBITUSSIN DM) 100-10 mg/5 mL syrup Take 10 mL by mouth every 4 hours as needed for cough for up to 5 days. 200 mL 02/14/2025 02/19/2025 Active dextromethorphan hydrobromide 3 mg/ml / promethazine hydrochloride 1.25 mg/ml oral solution (20 sources) Phenothiazine, Uncompetitive A-ixnnqs-I-aspartate Receptor Antagonist, Sigma-1 Agonist Start: 02-24-2025 take 5 mL by mouth four times daily as needed Promethazine-DM (PHENERGAN-DM) 6.25-15 mg/5 mL syrup Indications: RSV (respiratory syncytial virus pneumonia) Take 5 mL by mouth four times a day as needed. 120 mL 02/24/2025 Active Start: 03-04-2024 End: 01-20-2025 take 5 mL by mouth four times daily as needed Promethazine-DM (PHENERGAN-DM) 6.25-15 mg/5 mL syrup Indications: Bronchiectasis without complication (HCC) Take 5 mL by mouth four times a day as needed. 120 mL 03/04/2024 01/20/2025 Discontinued glucose 4000 mg chewable tablet (20 sources) Start: 01-23-2025 glucose 4 gram chewable tablet Take 4 tablets by mouth as needed for low blood sugar. 10 tablet 5 01/23/2025 Active insulin isophane, human 70 unt/ml / insulin, regular, human 30 unt/ml injectable suspension (20 sources) Insulin Start: 02-24-2025 End: 03-30-2026 inject 10 [IU] by subcutaneous injection twice daily at mealtime insulin NPH-insulin regular 70/30 (NOVOLIN 70/30 U-100 INSULIN) 100 unit/mL suspension Indications: Type 2 diabetes mellitus with hyperglycemia, with long-term current use of insulin (HCC) Inject 10 Units subcutaneously two times a day with meals. 20 mL 3 03/30/2025 03/30/2026 Active Start: 02-15-2025 End: 03-17-2025 insulin NPH-insulin regular 70/30 (NOVOLIN 70/30 U-100 INSULIN) 100 unit/mL suspension Inject 5 Units subcutaneously daily with breakfast. Patient should start on February 15, 2025. 10 mL 02/15/2025 02/24/2025 Discontinued Start: 02-01-2025 insulin NPH-in sulin regular 70/30 (NOVOLIN 70/30 U-100 INSULIN) 100 unit/mL suspension Indications: Type 2 diabetes mellitus with hyperglycemia, with long-term current use of insulin (HCC) Inject 17 Units subcutaneously two times a day with meals. With breakfast and dinner 10 mL 5 02/01/2025 Suspended Start: 01-23-2025 End: 02-01-2025 insulin NPH-insulin regular 70/30 (NOVOLIN 70/30 U-100 INSULIN) 100 unit/mL suspension Inject 15 Units subcutaneously two times a day with meals. With breakfast and dinner 10 mL 5 01/23/2025 02/01/2025 Discontinued isopropyl alcohol 0.7 ml/ml medicated pad (20 sources) Start: 01-23-2025 alcohol swabs Use with blood glucose test 2 times daily. Insulin Dep? Yes 200 Each 5 01/23/2025 Active levoFLOXacin 750 mg oral tablet (10 sources) Quinolone Antimicrobial Start: 02-14-2025 End: 02-17-2025 take 1 tablet by mouth once daily levoFLOXacin (LEVAQUIN) 750 mg tablet Take 1 tablet by mouth once daily for 3 days. 3 tablet 02/14/2025 02/17/2025 Active Start: 10-13-2024 End: 10-20-2024 take 1 tablet by mouth once daily levoFLOXacin (LEVAQUIN) 500 mg tablet Indications: Acute bronchitis, unspecified organism Take 1 tablet by mouth once daily for 7 days. 7 tablet 10/13/2024 10/20/2024 Active Start: 03-04-2024 End: 03-14-2024 take 1 tablet by mouth once daily levoFLOXacin (LEVAQUIN) 500 mg tablet Indications: Bronchiectasis without complication (HCC) Take 1 tablet by mouth once daily for 10 days. 10 tablet 03/04/2024 03/14/2024 losartan potassium 100 mg oral tablet (20 sources) Angiotensin 2 Receptor [facility] Start: 10-26-2022 End: 03-30-2026 take 1 tablet by mouth once daily losartan (COZAAR) 100 mg tablet Indications: Primary hypertension Take 1 tablet by mouth once daily. 90 tablet 3 03/30/2025 03/30/2026 Active Start: 10-01-2022 End: 10-01-2023 take 1 tablet by mouth once daily losartan (COZAAR) 50 mg tablet Indications: Primary hypertension Take 1 tablet by mouth once daily. 90 tablet 3 10/01/2022 10/26/2022 Discontinued Start: 09-17-2022 End: 09-17-2023 take 1 tablet by mouth once daily losartan (COZAAR) 25 mg tablet Indications: Primary hypertension Take 1 tablet by mouth once daily. 90 tablet 3 09/17/2022 10/01/2022 Discontinued Comment on above: Take 1 tablet by rina th once daily. metFORMIN hydrochloride 500 mg oral tablet (20 sources) Biguanide Start: take 2 tablets by mouth twice daily at mealtime metFORMIN (GLUCOPHAGE) 500 mg tablet Indications: Type 2 diabetes mellitus without complication, without long-term current use of insulin (HCC) Take 2 tablets by mouth two times a day with meals. 120 tablet 5 09/18/2023 Suspended Start: 01-25-2023 End: 01-25-2024 take 1 tablet by mouth three times daily before mealtime metFORMIN (GLUCOPHAGE) 500 mg tablet Indications: Type 2 diabetes mellitus without complication, without long-term current use of insulin (HCC) Take 1 tablet by mouth three times daily before meals. 270 tablet 3 01/25/2023 09/18/2023 Discontinued Start: 09-26-2021 End: 01-25-2023 take 1 tablet by mouth twice daily Metformin 500 mg tablet Active 500 mg PO TWICE A DAY February 15, 2022 12:00am Comment on above: Take 1 tablet by rina th twice daily with meals. Take 1 tablet by rina th three times daily before meals. Take 2 tablets by mo ut two times a day with meals. metoprolol tartrate 50 mg oral tablet (20 sources) beta-Adrenergic [facility] Start: 11-21-2023 take 1 tablet by mouth twice daily Metoprolol Tartrate 50 mg tablet Active 50 mg PO TWICE A DAY November 21, 2023 10:23am Start: 04-15-2023 End: 12-22-2025 take 1.5 tablets by mouth twice daily metoprolol tartrate, short acting, (LOPRESSOR) 50 mg tablet Indications: Primary hypertension Take 1.5 tablets by mouth two times a day. 270 tablet 1 12/22/2024 12/22/2025 Active Start: 02-15-2022 End: 11-21-2023 Metoprolol Tartrate 50 mg ta blet Discontinued 75 mg PO TWICE A DAY February 15, 2022 12:00am November 21, 2023 10:23am Start: 02-15-2022 End: 11-21-2023 take 75 mg by mouth twice daily Metoprolol Tartrate Di scontinued 75 MG PO TWICE A DAY February 15, 2022 12:00am November 21, 2023 10:23am Start: 10-17-2021 End: 07-16-2023 take 1 tablet by mouth twice daily metoprolol tartrate, short acting, (LOPRESSOR) 50 mg tablet Indications: Primary hypertension Take 1 tablet by mouth twice daily. 180 tablet 3 07/16/2022 04/15/2023 Discontinued (Adjust Sig - Block E-Cancel) Start: 04-19-2021 End: 02-15-2022 take 1 tablet by mouth twice daily Metoprolol Tartrate 25 mg tablet Discontinued 25 mg PO TWICE A DAY 180 August 28, 2021 10:09am February 15, 2022 10:19am Comment on above: Take 1 tablet by rina th twice daily. Take 1.5 tablets by mouth twice daily. Take 1.5 tablets by mouth two times a day. Multivitamin preparation (6 sources) Start: 06-19-2021 take 1 tablet by mouth once daily Multivitamin Active 1 TABLET PO DAILY June 18, 2021 11:00pm Start: 06-19-2021 take 1 tablet by rina th once daily Multivitamin Active 1 TABLET PO DAILY June 19, 2021 12:00am Multivitamin tablet (2 sources) Start: 06-19-2021 Multivitamin t ablet Active 1 {tbl} PO DAILY June 19, 2021 12:00am ondansetron 8 mg oral tablet (20 sources) Serotonin-3 Receptor Antagonist Start: 02-05-2025 End: 02-05-2025 8 mg, INTRAVENOUS, ONCE, 1 dose, On 02/05/25 at 1000 Start: 01-28-2025 End: 01-28-2025 8 mg, INTRAVENOUS, ONCE, 1 d ose, On Justyna 01/28/25 at 1130 Start: 01-25-2025 End: 07-22-2025 take 1 tablet by mouth every eight hours as needed ondansetron (ZOFRAN) 8 mg tablet Indications: Type 2 diabetes mellitus with hyperglycemia, with long-term current use of insulin (HCC) Take 1 tablet by mouth every 8 hours as needed. 60 tablet 1 04/23/2025 07/22/2025 Active Start: 02-25-2024 End: 04-28-2024 take 1 tablet by mouth every eight hours as needed for nausea Ondansetron 4 mg tablet,disintegrating Discontinued 4 mg PO EVERY 8 HOURS NEEDED as needed for Nausea February 25, 2024 12:00am April 28, 2024 3:00pm pantoprazole 40 mg delayed release oral tablet (20 sources) Proton Pump Inhibitor Start: 11-04-2024 End: 05-03-2025 take 1 tablet by mouth twice daily before mealtime, then take 4 tablets by mouth in the evening pantoprazole DR (PROTONIX) 40 mg tablet Take 1 tablet by mouth two times a day before meals at 6 am and 4 pm. 60 tablet 02/14/2025 Active Start: 04-19-2021 End: 03-20-2025 take 1 tablet by mouth once daily Pantoprazole 40 mg tablet,delayed release (DR/EC) Active 40 mg PO DAILY August 28, 2021 10:09am Comment on above: Take 40 mg by mouth once daily. Take 1 tablet by [facility] [place] once daily. phenylephrine hydrochloride 25 mg/ml ophthalmic solution (3 sources) alpha-1 Adrenergic Agonist Start: 04-28-2024 End: 04-29-2024 PHENYLephrine 2.5 % 1 Drop (AK-DILATE, BANDAR-SYNEPHRINE) Start: 02-15-2023 End: 02-16-2023 PHENYLephrine 2.5 % 1 Drop ( AK-DILATE, BANDAR-SYNEPHRINE) polyethylene glycol 400 4 mg/ml / propylene glycol 3 mg/ml ophthalmic solution (20 sources) Start: 04-28-2024 End: 06-04-2025 PEG 400-propylene glycol (SYSTANE ULTRA) 0.4-0.3 % ophthalmic solution Use 1 Drop in both eyes three times a day. 10 mL 5 06/04/2024 06/04/2025 Active proparacaine hydrochloride 5 mg/ml ophthalmic solution (3 sources) Local Anesthetic Start: 04-28-2024 End: 04-29-2024 proparacaine 0.5 % 1 Drop (ALCAINE) Start: 02-15-2023 End: 02-16-2023 proparacaine 0.5 % 1 Drop (A LCAINE) sucralfate 1000 mg oral tablet (20 sources) Aluminum Complex Start: 04-19-2025 End: 05-19-2025 take 1 tablet by mouth four times daily sucralfate (CARAFATE) 1 gram tablet Take 1 tablet by mouth four times daily. 120 tablet 04/19/2025 05/19/2025 Active Start: 03-08-2025 End: 04-07-2025 take 1 tablet by mouth four times daily sucralfate (CARAFATE) 1 gram tablet Take 1 tablet by mouth four times daily. 120 tablet 1 03/08/2025 04/07/2025 Active Start: 01-23-2025 End: 02-22-2025 take 1 tablet by mouth four times daily sucralfate (CARAFATE) 1 gram tablet Take 1 tablet by mouth four times daily. 120 tablet 01/23/2025 02/22/2025 tropicamide 10 mg/ml ophthalmic solution (3 sources) Anticholinergic Start: 04-28-2024 End: 04-29-2024 tropicamide 1 % 1 Drop (MYDRIACYL) Start: 02-15-2023 End: 02-16-2023 tropicamide 1 % 1 Drop (MYDR IACYL) Completed/Discontinued Medications Medication Drug Class(es) Dates Sig (Normalized) Sig (Original) aspirin 81 mg delayed release oral tablet (14 sources) Platelet Aggregation Inhibitor, Nonsteroidal Anti-inflammatory Drug Start: 01-23-2025 End: 02-01-2025 take 1 tablet by mouth once daily aspirin, enteric coated (ASPIRIN, ENTERIC COATED) 81 mg EC tablet Take 1 tablet by mouth once daily for 3 doses. 3 tablet 01/23/2025 02/01/2025 Discontinued baclofen 5 mg oral tablet (8 sources) gamma-Aminobutyric Acid-ergic Agonist Start: 02-15-2022 End: 03-07-2023 take 5-10 mg by mouth at bedtime as needed for pain Baclofen 5 mg tablet Discontinued 5 - 10 mg PO AT BEDTIME as needed for neck pain 60 February 15, 2022 12:00am March 07, 2023 10:35am Start: 02-15-2022 End: 03-07-2023 take 5-10 mg by mouth at bedtime Baclofen Discontinued 5 - 10 MG PO AT BEDTIME 60 February 15, 2022 12:00am March 07, 2023 10:35am benzocaine 15 mg / menthol 2.6 mg oral lozenge (20 sources) Standardized Chemical Allergen Start: 02-25-2024 End: 01-20-2025 benzocaine-menthol (CEPACOL) 15-2.6 mg lozg lozenge Take 1 Lozenge by mouth every 4 hours as needed for pain. 02/25/2024 01/20/2025 Discontinued Start: 02-25-2024 Benzocaine-Men thol (Cepacol Sore Throat (Janneth-Men)) 15-2.6 mg lozenge Active 1 NMA MUCOUS MEM Q2H as needed for sore throat February 25, 2024 12:00am Start: 02-25-2024 Benzocaine-Men thol (Cepacol Sore Throat (Janneth-Men)) 15-2.6 mg lozenge Active 1 LOZENGE MUCOUS MEM Q2H February 25, 2024 12:00am cloNIDine hydrochloride 0.1 mg oral tablet (8 sources) Central alpha-2 Adrenergic Agonist Start: 08-20-2021 End: 02-15-2022 Clonidine Hcl 0.1 mg tablet Discontinued 0.1 mg PO TWICE A DAY as needed for SBP > 180 August 20, 2021 3:19pm February 15, 2022 10:59am Start: 08-20-2021 End: 02-15-2022 take 0.1 mg by mouth twice daily Clonidine Hcl Discontinued 0.1 MG PO TWICE A DAY August 20, 2021 3:19pm February 15, 2022 10:59am cyclobenzaprine hydrochloride 5 mg oral tablet (14 sources) Muscle Relaxant Start: 07-01-2024 take 1 tablet by mouth twice daily as needed for muscle spasms cyclobenzaprine (FLEXERIL) 5 mg tablet Indications: Cervical radicular pain Take 1 tablet by mouth two times a day as needed for muscle spasm. 20 tablet 07/01/2024 Suspended 1 ml dexamethasone phosphate 10 mg/ml injection (2 sources) Corticosteroid Start: 02-05-2025 End: 02-05-2025 10 mg, INTRAVENOUS, ONCE, 1 dose, On Sat02/05/25 at 1000, Administer over 5 minutes. Start: 01-28-2025 End: 01-28-2025 10 mg, INTRAVENOUS, ONCE, 1 dose, On Justyna 01/28/25 at 1130, Administer over 5 minutes. dronabinol 2.5 mg oral capsule (4 sources) Cannabinoid Start: 02-14-2025 End: 03-16-2025 take 1 capsule by mouth twice daily before mealtime dronabinol (MARINOL) 2.5 mg capsule Indications: Pancreatic adenocarcinoma (HCC) Take 1 capsule by mouth two times a day before meals for 30 days. 60 capsule 02/14/2025 02/22/2025 Discontinued enteric contrast (will be provided with radiology test) (5 sources) Start: 05-25-2025 End: 05-26-2025 enteric contrast (will be provided with radiology test) Indications: 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) , Adenocarcinoma of head of pancreas (HCC) For CT CHESTABD/PEL W IVCON Routine order Administer, As Directed One Time Only, via Oral, Rectal, both Oral and Rectal, Enteric Tube, Stoma or Indwelling Catheter, Enteric Contrast as designated per enteric contrast guidelines 1 each 05/25/2025 05/26/2025 Start: 05-25-2025 End: 05-26-2025 enteric contrast (will be pr ovided with radiology test) Indications: 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) , Adenocarcinoma of head of pancreas (HCC) For CT CHESTABD/PEL W IVCON Routine order Administer, As Directed One Time Only, via Oral, Rectal, both Oral and Rectal, Enteric Tube, Stoma or Indwelling Catheter, Enteric Contrast as designated per enteric contrast guidelines 1 each 05/25/2025 05/26/2025 Active Start: 02-08-2023 End: 02-09-2023 enteric contrast (will be pr ovided with radiology test) For CT PELVIS W IVCON order Administer, As Directed One Time Only, via Oral, Rectal, both Oral and Rectal, Enteric Tube, Stoma or Indwelling Catheter, Enteric Contrast as designated per enteric contrast guidelines 1 Each 0 02/08/2023 02/09/2023 Active Comment on above: For CT PELVIS W IVCO N order Administer, As Directed One Time Only, via Oral, Rectal, both Oral and Rectal, Enteric Tube, Stoma or Indwelling Catheter, Enteric Contrast as designated per enteric contrast guidelines estradiol 0.1 mg/ml vaginal cream (7 sources) Estrogen Start: 02-08-2023 End: 05-20-2023 estradiol (ESTRACE) 0.01 % (0.1 mg/gram) vaginal cream Use 1 g vaginally once daily. For 2 weeks. Then use 1 gram 3 times per week. 42.5 g 1 02/08/2023 05/20/2023 Discontinued (Other) Comment on above: Use 1 g vaginally on ce daily. For 2 weeks. Then use 1 gram 3 times per week. 14 actuat fluticasone furoate 0.1 mg/actuat / vilanterol 0.025 mg/actuat dry powder inhaler (20 sources) Corticosteroid, beta2-Adrenergic Agonist Start: 11-26-2023 End: 01-20-2025 fluticasone-vilanterol (BREO ELLIPTA) 100-25 mcg/dose inhaler Indications: Bronchiectasis without complication (HCC) Inhale 1 Inhalation as instructed once daily. 60 Each 11 11/17/2024 01/20/2025 Discontinued Start: 03-07-2023 End: 01-09-2025 Fluticasone Furoate-Vilanter ol (Breo Ellipta) 100-25 mcg/dose blister with device Discontinued 1 NMA INHALATION DAILY March 07, 2023 12:00am January 09, 2025 8:59pm Start: 03-07-2023 Fluticasone Fu roate-Vilanterol (Breo Ellipta) 100-25 mcg/dose blister with device Active 1 INH INHALATION DAILY March 07, 2023 12:00am Start: 11-16-2022 End: 05-20-2023 take 1 dose by inhalation once daily fluticasone-vilanterol (BREO ELLIPTA) 100-25 mcg/dose inhaler Indications: Mild intermittent asthma without complication , Bronchiectasis without complication (HCC) Inhale 1 Inhalation as instructed once daily. 1 Each 5 05/20/2023 Active Comment on above: Inhale 1 Inhalation as instructed once daily. gemcitabine 1,700 mg in NaCl 0.9% 319.71 mL (GEMZAR) (2 sources) Start: 02-05-2025 End: 02-05-2025 1,700 mg (1,000 mg/m2 1.7 m2 Treatment Plan BSA from Recorded weight), INTRAVENOUS, Administer over 30 Minutes, ONCE, 1 dose, On 02/05/25 at 1100, exp 1200 02/06/25 (room temp) Hazardous Chemotherapy Drug: Use appropriate PPE. Antineoplastic Irritant. Start: 01-28-2025 End: 01-28-2025 1,700 mg (1,000 mg/m2 1.7 m2 Treatment Plan BSA from Recorded weight), INTRAVENOUS, Administer over 30 Minutes, ONCE, 1 dose, On Justyna 01/28/25 at 1230, Approx Total Volume - Expires: 01/29/25 @ 1735 Hazardous Chemotherapy Drug: Use appropriate PPE. Antineoplastic Irritant. 12 hr guaiFENesin 600 mg extended release oral tablet (5 sources) Start: 11-17-2024 End: 01-20-2025 take 1 tablet by mouth twice daily guaiFENesin (MUCINEX) 600 mg 12 hr tablet Take 1 tablet by mouth two times a day. 60 tablet 1 11/17/2024 01/20/2025 Discontinued hydroCHLOROthiazide 12.5 mg oral capsule (2 sources) Thiazide Diuretic Start: 04-01-2023 take 1 capsule by mouth once daily hydroCHLOROthiazide 12.5 mg capsule Indications: Primary hypertension Take 1 capsule by mouth once daily. 30 capsule 12 04/01/2023 Active Comment on above: Take 1 capsule by [facility] once daily. hypromellose 0.003 mg/mg ophthalmic gel (20 sources) Start: 04-28-2024 End: 06-04-2025 apply 1 drop(s) into the eye(s) once daily at bedtime Artificial Tear, Hypromellose, (SYSTANE GEL) 0.3 % gel Use 1 Drop in both eyes daily at bedtime. 10 g 1 06/04/2024 01/20/2025 Discontinued iv contrast (will be provided with radiology test) (5 sources) Start: 05-25-2025 End: 05-26-2025 iv contrast (will be provided with radiology test) Indications: 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) , Adenocarcinoma of head of pancreas (HCC) CT Chest ABD/PEL-Inject, intravenously, once for 1 dose.No IV access, insert saline lock prior to the beginning of sedation, infusion, injection of imaging exam. Discontinue saline lock post exam. If Pt. has a central line or IVAD, may access for administration according to line specific nursing protocol. Once exam is complete flush line and de-access according to line specific nursing protocol in the CT contrast administration guidelines link. 1 each 05/25/2025 05/26/2025 Start: 05-25-2025 End: 05-26-2025 iv contrast (will be provide d with radiology test) Indications: 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) , Adenocarcinoma of head of pancreas (HCC) CT Chest ABD/PEL-Inject, intravenously, once for 1 dose.No IV access, insert saline lock prior to the beginning of sedation, infusion, injection of imaging exam. Discontinue saline lock post exam. If Pt. has a central line or IVAD, may access for administration according to line specific nursing protocol. Once exam is complete flush line and de-access according to line specific nursing protocol in the CT contrast administration guidelines link. 1 each 05/25/2025 05/26/2025 Active Start: 02-08-2023 End: 02-09-2023 iv contrast (will be provide d with radiology test) CT PELVIS W -Inject, intravenously, once for 1 dose.No IV access, insert saline lock prior to the beginning of sedation, infusion, injection of imaging exam. Discontinue saline lock post exam. If Pt. has a central line or IVAD, may access for administration according to line specific nursing protocol. Once exam is complete flush line and de-access according to line specific nursing protocol in the CT contrast administration guidelines link. 1 Each 0 02/08/2023 02/09/2023 Active Comment on above: CT PELVIS W -Inject, intravenously, once for 1 dose.No IV access, insert saline lock prior to the beginning of sedation, infusion, injection of imaging exam. Discontinue saline lock post exam. If Pt. has a central line or IVAD, may access for administration according to line specific nursing protocol. Once exam is complete flush line and de-access according to line specific nursing protocol in the CT contrast administration guidelines link. lisinopril 5 mg oral tablet (2 sources) Angiotensin Converting Enzyme Inhibitor Star t: 01-14 End: 11-16 23 take 1 tablet by mouth once daily lisinopril (ZESTRIL, PRINIVIL) 5 mg tablet Take 1 tablet by mouth once daily. 30 tablet 2 08/30/2022 09/17/2022 Discontinued Comment on above: Take 1 tablet by [facility] [place] once daily. methylsulfonylmethane 1000 mg oral capsule (20 sources) take 1 capsule by mouth once daily Methylsulfonylmethane (MSM) 1,000 mg cap Take 1 capsule by mouth once daily. Suspended Comment on above: Take 1 capsule by [facility] once daily. PACLitaxel 100 mg injection (2 sources) Microtubule Inhibitor Star t: 01-26 End: 01-26 212.5 mg (125 mg/m2 1.7 m2 Treatment Plan BSA from Recorded weight), INTRAVENOUS, at 85 mL/hr, Administer over 30 Minutes, ONCE, 1 dose, On 02/05/25 at 1030, exp 1400 02/05/25 (room temp) Administer total dose over 30 minutes. Hazardous Chemotherapy Drug: Use appropriate PPE. Antineoplastic Irritant with Vesicant Potential. Start: 01-28-2025 End: 01-28-2025 212.5 mg (125 mg/m2 1.7 m2 T reatment Plan BSA from Recorded weight), INTRAVENOUS, at 85 mL/hr, Administer over 30 Minutes, ONCE, 1 dose, On Justyna 01/28/25 at 1200, Expires: 01/28/25 @ 1935 Administer total dose over 30 minutes. Hazardous Chemotherapy Drug: Use appropriate PPE. Antineoplastic Irritant with Vesicant Potential. polyethylene glycol 3350 720696 mg / potassium chloride 2970 mg / sodium bicarbonate 6740 mg / sodium chloride 5860 mg / sodium sulfate 35998 mg powder for oral solution (1 source) Osmotic Laxative Start: 09-05-2022 End: 09-05-2022 peg 3350-Electrolytes (GOLYTELY) 236-22.74-6.74 -5.86 gram suspension Indications: Change in bowel habits Take 4,000 mL by mouth one time only for 1 dose. Refer to printed prep instructions from your provider. 4000 mL 0 09/05/2022 09/05/2022 Comment on above: Take 4,000 mL by rina th one time only for 1 dose. Refer to printed prep instructions from your provider. predniSONE 50 mg oral tablet (3 sources) Start: 02-25-2024 End: 07-09-2024 take 1 tablet by mouth once daily Prednisone 50 mg tablet Discontinued 50 mg PO DAILY February 25, 2024 12:00am July 09, 2024 11:35am traMADol hydrochloride 50 mg oral tablet (2 sources) Opioid Agonist Start: 06-25-2024 End: 01-09-2025 take 1 tablet by mouth every six hours as needed for pain Tramadol 50 mg tablet Discontinued 50 mg PO EVERY 6 HOURS as needed for pain 12 June 25, 2024 12:00am January 09, 2025 9:01pm Problems Active Problems Problem Classification Problem Date Documented Da te Episodic/Chronic Acute bronchitis (2 sources) Acute bronchitis; Translations: [Acute bronchitis, unspecified] Onset: 5 10-13-2024 Episodic Acute cerebrovascular disease (20 sources) Cerebrovascular accident; Translations: [Cerebral infarction, unspecified] Onset: 3 05-20-2023 Chronic Administrative/social admission (3 sources) Patient encounter status; Translations: [Dietary counseling and surveillance] Episodic Asthma (20 sources) Mild intermittent asthma; Translations: [Mild intermittent asthma, uncomplicated] Onset: 1 09-14-2021 Chronic Blindness and vision defects (3 sources) Presbyopia; Translations: [Presbyopia] Episodic Cancer of pancreas (20 sources) Malignant tumor of head of pancreas; Translations: [Malignant neoplasm of head of pancreas] Onset: 5 01-21-2025 Chronic Cardiac dysrhythmias (20 sources) Atrial fibrillation; Translations: [Unspecified atrial fibrillation] Onset: 3 03-07-2023 Chronic Cataract (5 sources) Bilateral pseudophakia; Translations: [Presence of intraocular lens] Chronic Chronic obstructive pulmonary disease and bronchiectasis (20 sources) Bronchiectasis; Translations: [Bronchiectasis, uncomplicated] Onset: 3 Chronic Chronic obstructive pulmonary disease and bronchiectasis (2 sources) Bronchitis; Translations: [Bronchitis, not specified as acute or chronic] 03-04-2024 Episodic Deficiency and other anemia (1 source) Other pancytopenia; Translations: [Pancytopenia (HCC)] Onset: 5 Chronic Deficiency and other anemia (1 source) Anemia; Translations: [Anemia, unspecified] 05-04-2024 Episodic Deficiency and other anemia (1 source) Anemia, unspecified; Translations: [Anemia, unspecified type] Onset: 5 Episodic Diabetes mellitus with complications (20 sources) Hyperglycemia due to type 2 diabetes mellitus; Translations: [Type 2 diabetes mellitus with hyperglycemia] Onset: 5 01-18-2025 Chronic Diseases of white blood cells (1 source) Leukocytosis; Translations: [Elevated white blood cell count, unspecified] 03-05-2024 Chronic Disorders of lipid metabolism (20 sources) Hyperlipidemia; Translations: [Hyperlipidemia, unspecified] Onset: 3 06-19-2021 Chronic E Codes: Natural/environment (4 sources) Insect bite - wound; Translations: [Bitten or stung by nonvenomous insect and other nonvenomous arthropods, initial encounter] 08-07-2023 Episodic Esophageal disorders (20 sources) Gastroesophageal reflux disease without esophagitis; Translations: [Gastro-esophageal reflux disease without esophagitis] Onset: 1 09-14-2021 Chronic Essential hypertension (20 sources) Essential hypertension; Translations: [Essential (primary) hypertension] Onset: 1 Chronic Fluid and electrolyte disorders (3 sources) Hyperkalemia; Translations: [Hyperkalemia] Onset: 5 03-05-2024 Episodic Gastrointestinal hemorrhage (9 sources) Black feces symptom; Translations: [Melena] 08-08-2021 Episodic Malaise and fatigue (1 source) Weakness; Translations: [Weakness] Onset: 04-16-202 5 Episodic Other and ill-defined heart disease (8 sources) Mass of thoracic structure; Translations: [Other ill-defined heart diseases] 02-28-2022 Chronic Other and ill-defined heart disease (5 sources) Other ill-defined heart diseases; Translations: [Other ill-defined heart diseases] 03-07-2023 Chronic Other circulatory disease (8 sources) History of transient ischemic attack; Translations: [Personal history of transient ischemic attack (TIA), 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 deficits] 02-15-2022 Episodic Other connective tissue disease (2 sources) Muscle pain; Translations: [Myalgia, unspecified site] 07-10-2024 Episodic Other ear and sense organ disorders (1 source) Otalgia, left ear; Translations: [Otalgia, unspecified] 09-05-2023 Episodic Other eye disorders (2 sources) Disorder of lacrimal gland; 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] 06-25-2023 Episodic Other female genital disorders (1 source) Vaginal bleeding; Translations: [Abnormal uterine and vaginal bleeding, unspecified] Chronic Other gastrointestinal disorders (1 source) Alteration in bowel elimination; Translations: [Change in bowel habit] Episodic Other gastrointestinal disorders (1 source) Difficulty swallowing pills; Translations: [Dysphagia, unspecified] 09-05-2023 Episodic Other gastrointestinal disorders (1 source) Diarrhea; Translations: [Diarrhea, unspecified] 02-07-2024 Episodic Other gastrointestinal disorders (3 sources) Oropharyngeal dysphagia; Translations: [Dysphagia, oropharyngeal phase] 10-13-2024 Episodic Other gastrointestinal disorders (1 source) Dysphagia; Translations: [Dysphagia, unspecified] 11-17-2024 Episodic Other hereditary and degenerative nervous system conditions (8 sources) Impaired cognition; Translations: [Mild cognitive impairment, so stated] 06-19-2021 Chronic Other hereditary and degenerative nervous system conditions (2 sources) Mild cognitive impairment, so stated; Translations: [Mild cognitive impairment, so stated] Onset: 4 06-18-2023 Chronic Other liver diseases (6 sources) High lipase level in serum; Translations: [Abnormal levels of other serum enzymes] 11-12-2024 Episodic Other liver diseases (4 sources) Enzyme level - finding; Translations: [Elevated transaminase measurement] 01-10-2025 Episodic Other lower respiratory disease (3 sources) Cough; Translations: [Cough, unspecified type] Episodic Other lower respiratory disease (3 sources) Chronic cough; Translations: [Chronic cough] Episodic Other lower respiratory disease (2 sources) Rib pain; Translations: [Pleurodynia] 06-05-2024 Episodic Other lower respiratory disease (3 sources) Hemoptysis; Translations: [Hemoptysis] 11-04-2024 Episodic Other lower respiratory disease (2 sources) Dyspnea; Translations: [Dyspnea, unspecified] 02-05-2025 Episodic Other nutritional; endocrine; and metabolic disorders (1 source) Obese class I; Translations: [Obesity, unspecified] Chronic Other nutritional; endocrine; and metabolic disorders (4 sources) Hyperbilirubinemia; Translations: [Other disorders of bilirubin metabolism] 01-10-2025 Chronic Other nutritional; endocrine; and metabolic disorders (1 source) Other disorders of bilirubin metabolism; Translations: [Other disorders of bilirubin metabolism] Onset: Chronic Other nutritional; endocrine; and metabolic disorders (1 source) Weight loss; Translations: [Abnormal weight loss] 03-04-2024 Episodic Other nutritional; endocrine; and metabolic disorders (4 sources) Body mass index 25-29 - overweight; Translations: [Overweight] 01-10-2025 Episodic Other nutritional; endocrine; and metabolic disorders (1 source) Overweight; Translations: [Overweight] Onset: Episodic Other screening for suspected conditions (not mental disorders or infectious disease) (4 sources) Imaging of thorax abnormal; Translations: [Abnormal findings on diagnostic imaging of other specified body structures] Chronic Other upper respiratory infections (2 sources) Sore throat symptom; Translations: [Acute pharyngitis, unspecified] 02-19-2024 Episodic Residual codes; unclassified (1 source) Acquired absence of both cervix and uterus; Translations: [Acquired absence of both cervix and uterus] Onset: Episodic Sprains and strains (2 sources) Strain of neck muscle; Translations: [Strain of muscle, fascia and tendon at neck level, initial encounter] 07-03-2024 Episodic Transient cerebral ischemia (9 sources) Transient cerebral ischemia; Translations: [Transient cerebral ischemic attack, unspecified] Onset: 1 08-08-2021 Chronic Unclassified (1 source) Established Patient Onset: 5 Unclassified (1 source) Elevation of levels of liver transaminase levels; Translations: [Elevation of levels of liver transaminase levels] Onset: 5 Unclassified (1 source) Chronic atrial fibrillation, unspecified; Translations: [Chronic atrial fibrillation, unspecified] Onset: 5 Past or Other Problems Problem Classification Problem Date Documented Da te Episodic/Chronic Abdominal pain (8 sources) Pelvic and perineal pain; Translations: [Pelvic and perineal pain] Onset: 11-12-2024 Episodic Biliary tract disease (20 sources) Obstructive hyperbilirubinemia; Translations: [Obstruction of bile duct] Onset: 01-18-2025 Resolved: 03-30-2025 01-18-2025 Chronic Cancer of uterus (20 sources) History of malignant neoplasm of uterine body; Translations: [Personal history of malignant neoplasm of other parts of uterus] Onset: 09-14-2021 09-14-2021 Episodic Diabetes mellitus without complication (20 sources) Type 2 diabetes mellitus without complication; Translations: [Type 2 diabetes mellitus without complications] Onset: 09-14-2021 Resolved: 03-30-2025 Chronic Diabetes mellitus without complication (20 sources) Hyperglycemia; Translations: [Hyperglycemia, unspecified] Onset: 01-18-2025 Resolved: 03-30-2025 01-18-2025 Episodic Mycoses (20 sources) Candidiasis of vagina; Translations: [Candidiasis of vagina] Onset: 05-20-2023 Resolved: 05-20-2023 08-20-2021 Episodic Nonspecific chest pain (20 sources) Chest pain; Translations: [Chest pain, unspecified] Onset: 03-12-2023 Resolved: 07-01-2024 03-07-2023 Episodic Other aftercare (20 sources) Long-term current use of anticoagulant; Translations: [assisted (current) use of anticoagulants] Onset: 05-20-2023 04-08-2023 Episodic Other aftercare (2 sources) assisted (current) use of insulin; Translations: [Type 2 diabetes mellitus with hyperglycemia, with long-term current use of insulin (HCC)] Onset: 01-18-2025 Episodic Other aftercare (1 source) assisted (current) use of anticoagulants; Translations: [assisted current use of anticoagulant therapy] Onset: 05-20-2023 Episodic Other and unspecified benign neoplasm (20 sources) Atrial myxoma ; Translations: [Benign neoplasm of heart] Onset: 09-14-2021 Episodic Other and unspecified benign neoplasm (1 source) Benign neoplasm of heart; Translations: [Atrial myxoma] Onset: 05-20-2023 Episodic Other circulatory disease (20 sources) History of cerebrovascular accident; Translations: [Personal history of transient ischemic attack (TIA), 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 deficits] Onset: 09-14-2021 Episodic Other circulatory disease (3 sources) Personal history of transient ischemic attack (TIA), 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 deficits; Translations: [Personal history of transient ischemic attack (TIA), 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 deficits] Onset: 09-14-2021 06-18-2023 Episodic Other connective tissue disease (1 source) Myalgia, unspecified site; Translations: [Myalgia, unspecified site] Onset: 07-21-2024 Episodic Other gastrointestinal disorders (2 sources) Dysphagia, oropharyngeal phase; Translations: [Dysphagia, oropharyngeal phase] Onset: 11-09-2024 Episodic Other liver diseases (20 sources) Jaundice; Translations: [Unspecified jaundice] Onset: 01-15-2025 Resolved: 03-30-2025 01-15-2025 Episodic Other liver diseases (4 sources) Unspecified jaundice; Translations: [Jaundice] Onset: 01-15-2025 Episodic Other liver diseases (1 source) Abnormal levels of other serum enzymes; Translations: [Elevated lipase] Onset: 11-12-2024 Episodic Other lower respiratory disease (1 source) Dyspnea, unspecified; Translations: [Dyspnea and respiratory abnormalities] Onset: 02-05-2025 Episodic Other lower respiratory disease (1 source) Other abnormalities of breathing; Translations: [Dyspnea and respiratory abnormalities] Onset: 02-05-2025 Episodic Other lower respiratory disease (1 source) Hemoptysis; Translations: [Hemoptysis] Onset: 11-05-2024 Episodic Other lower respiratory disease (1 source) Pleurodynia; Translations: [Rib pain on right side] Onset: 06-06-2024 Episodic Other nervous system disorders (20 sources) Impaired cognition; Translations: [Other symptoms and signs involving cognitive functions and awareness] Onset: 05-20-2023 05-20-2023 Episodic Pancreatic disorders (not diabetes) (20 sources) Mass of pancreas; Translations: [Other specified diseases of pancreas] Onset: 01-14-2025 Resolved: 03-30-2025 01-15-2025 Episodic Pneumonia (except that caused by tuberculosis or sexually transmitted disease) (20 sources) Pneumonia; Translations: [Pneumonia, unspecified organism] Onset: 02-11-2025 Resolved: 03-30-2025 02-11-2025 Episodic Spondylosis; intervertebral disc disorders; other back problems (20 sources) Neck pain; Translations: [Cervicalgia] Onset: 05-20-2023 Resolved: 05-20-2023 02-15-2022 Episodic Viral infection (20 sources) Respiratory syncytial virus infection; Translations: [Other specified viral diseases] Onset: 02-12-2025 Resolved: 03-30-2025 02-12-2025 Episodic Results Test Name Value Interpretation Reference Range Facility [facility] 05-25-2025 CNOVSP Visit (SP) Office (H EMAWS) -- TELMA TINEO ([id number]) 1940 F Date Time Provider Department 05/25/25 12:00 PM JUAN MIGUEL YUSUF During your visit today, we recorded the following information about you: Temperature Pulse Blood pressure Weight 98.5 degrees 73/minute 140/69 69.9 kg Juan Miguel Yusuf MD 05/25/2025 2:02 PM Signed (Elements copied from my note dated February 22, 2025, have been reviewed and updated where appropriate, and all reflect current assessment and medical decision making from today's encounter, May 25, 2025) HISTORY OF PRESENT ILLNESS: Telma Tineo is a 84 year old female presented with painless jaundice, admitted initially at [facility], transferred for further work up at [facility]. Saw hepatobiliary surgery there, noted pancreatic mass. She underwent CBD stenting, and biopsy of mass at head of pancreas. Dx adenocarcinoma. Staging otherwise negative. Per surgery she is not currently resectable, they recommend neoadjuvant chemotherapy, followed by re assessment for surgery. Met with patient and her family today. She is a very active and functional lady, co morbidities noted, but well managed. Here for follow up, developed pneumonia was in hospital for 6 days discharged on February 14, 2025. Feels weak still, but still coughing up white to yellow phlegm. No more fever. Eating and drinking. Due to side effects of chemotherapy, she stopped the chemo. Last dose February 05, [address] Nguyễn subsequently CLINICAL IMPRESSION: Borderline resectable pancreatic adenocarcinoma Developed clinical pneumonia after day 8 cycle 1, remains weak. RECOMMENDATION/PLAN: 1. Plan re assess status of cancer with scans 2. See back me and Dr Stoner after scans done 3. Dr Diaz will see re stent change Written and verbal health teaching given to patient, patient verbalizes understanding and agrees with treatment plan. PAST MEDICAL HISTORY Diagnosis Date Allergies Lundberg's palsy Bronchiectasis (HCC) Gastroesophageal reflux disease without esophagitis History of CVA (cerebrovascular accident) Mild intermittent asthma without complication (HCC) Primary hypertension Type 2 diabetes mellitus without complication, without long-term current use of insulin (HCC) PAST SURGICAL HISTORY Procedure Laterality Date APPENDECTOMY CATARACT EXTRACTION HX Bilateral COLONOSCOPY SCREENING 10/04/2022 no specimens collected, No further screening colonoscopies required HEMORRHOIDECTOMY X's HYSTERECTOMY HX without bso PAST SURGICAL HISTORY OF ? repair of cystocele RHINOPLASTY N/A SLING OPER STRES INCONTINENCE TONSILLECTOMY AND ADENOIDECTOMY FAMILY HISTORY Problem Relation Age of Onset Pancreatic Cancer Mother Lung Cancer Father No Known Problems Sister No Known Problems Sister No Known Problems Sister No Known Problems Sister No Known Problems Sister Cancer Brother No Known Problems Brother Cancer Brother No Known Problems Brother Cancer Brother Heart disease Son No Ocular Disease No Family History Social History Tobacco Use Smoking status: Former Smokeless tobacco: Never Tobacco comments: Light smoker for 7 years in early adulthood Vaping Use Vaping status: Never Used Substance Use Topics Alcohol use: Not Currently Drug use: Never ALLERGIES: ALLERGIES Allergen Reactions Penicillins Anaphylaxis Tetracycline Rash Tramadol Intolerance Trembling CURRENT OUTPATIENT MEDICATIONS: ondansetron (ZOFRAN) 8 mg tablet Take 1 tablet by mouth every 8 hours as needed. atorvastatin (LIPITOR) 20 mg tablet Take 1 tablet by mouth once daily. losartan (COZAAR) 100 mg tablet Take 1 tablet by mouth once daily. ELIQUIS 5 mg tab(s) Take 1 tablet by mouth two times a day. insulin NPH-insulin regular 70/30 (NOVOLIN 70/30 U-100 INSULIN) 100 unit/mL suspension Inject 10 Units subcutaneously two times a day with meals. Promethazine-DM (PHENERGAN-DM) 6.25-15 mg/5 mL syrup Take 5 mL by mouth four times a day as needed. pantoprazole DR (PROTONIX) 40 mg tablet Take 1 tablet by mouth two times a day before meals at 6 am and 4 pm. glucose 4 gram chewable tablet Take 4 tablets by mouth as needed for low blood sugar. metoprolol tartrate, short acting, (LOPRESSOR) 50 mg tablet Take 1.5 tablets by mouth two times a day. PEG 400-propylene glycol (SYSTANE ULTRA) 0.4-0.3 % ophthalmic solution Use 1 Drop in both eyes three times a day. amLODIPine (NORVASC) 10 mg tablet Take 10 mg by mouth once daily. Blood-Glucose Sensor (FREESTYLE TOLU 3 PLUS SENSOR) benjamin Apply new sensor every fifteen (15) days to upper arm. Lancets Test Four times a day. Insulin Dep? Yes uncontrolled dm blood sugar diagnostic (BLOOD GLUCOSE TEST) test strip Test 4 times daily, Insulin Dep? Yes dm 2 uncontrolled. blood sugar diagnostic test strip Use with blood glucose test 2 times (more content not included)... Normal [facility] 05-25-2025 [facility] Telephone (GSTNOR) -- TELMA TINEO ([id number]) 1940 F Date Time Provider Department 05/25/25 ANEL DIAZ During your visit today, we recorded the following information about you: Fatoumata Glynn 05/25/2025 1:20 PM Signed Emilia Diaz, I am seeing this patient she has a plastic tent I think might need changing. She received a brief course of neoadjuvant chemo, but then stopped it due to side effects. Is now following up with me, I am updating her CT scans and will see her back after that. -- Dr Paramjit Hernandez, please schedule for an ERCP for biliary stent change. She has a history of pancreatic adenocarcinoma in the neck of the pancreas We had patient scheduled in March, but she cancelled because she was in [place]. LM to call me back. Fatoumata Glynn 05/25/2025 4:00 PM Signed Returned pt daughter call, who was returning my call from earlier today. Fatoumata Glynn 05/26/2025 9:51 AM Signed Returned pt daughter call again to schedule ERCP, LM to call me back. Fatoumata Glynn 05/26/2025 9:56 AM Addendum Patient is scheduled for 06/24, also looking for a sooner appt if comes available Are you on any blood thinners? Eliquis Are you on any diabetic medications? None to stop Do you have any allergies? In chart and current Allergies As of Date: 05/25/2025 Noted Allergy Reaction PENICILLINS 09/14/2021 10 - Anaphylaxis TETRACYCLINE 09/14/2021 2 - Rash TRAMADOL 07/01/2024 5 - Intolerance Comments: Trembling Date Reviewed: 05/25/2025 Reviewed by: Carl Ortiz MA - Fully Assessed Reason for Visit: Appointment [186] Prescriptions as of 05/26/2025 - iv contrast (will be provided with radiology test) CT Chest ABD/PEL-Inject, intravenously, once for 1 dose.No IV access, insert saline lock prior to the beginning of sedation, infusion, injection of imaging exam. Discontinue saline lock post exam. If Pt. has a central line or IVAD, may access for administration according to line specific nursing protocol. Once exam is complete flush line and de-access according to line specific nursing protocol in the CT contrast administration guidelines link. - enteric contrast (will be provided with radiology test) For CT CHESTABD/PEL W IVCON Routine order Administer, As Directed One Time Only, via Oral, Rectal, both Oral and Rectal, Enteric Tube, Stoma or Indwelling Catheter, Enteric Contrast as designated per enteric contrast guidelines - ondansetron (ZOFRAN) 8 mg tablet Take 1 tablet by mouth every 8 hours as needed. - Blood-Glucose Sensor (FREESTYLE TOLU 3 PLUS SENSOR) benjamin Apply new sensor every fifteen (15) days to upper arm. - atorvastatin (LIPITOR) 20 mg tablet Take 1 tablet by mouth once daily. - losartan (COZAAR) 100 mg tablet Take 1 tablet by mouth once daily. - ELIQUIS 5 mg tab(s) Take 1 tablet by mouth two times a day. - insulin NPH-insulin regular 70/30 (NOVOLIN 70/30 U-100 INSULIN) 100 unit/mL suspension Inject 10 Units subcutaneously two times a day with meals. - Promethazine-DM (PHENERGAN-DM) 6.25-15 mg/5 mL syrup Take 5 mL by mouth four times a day as needed. - pantoprazole DR (PROTONIX) 40 mg tablet Take 1 tablet by mouth two times a day before meals at 6 am and 4 pm. - Lancets Test Four times a day. Insulin Dep? Yes uncontrolled dm - blood sugar diagnostic (BLOOD GLUCOSE TEST) test strip Test 4 times daily, Insulin Dep? Yes dm 2 uncontrolled. - blood sugar diagnostic test strip Use with blood glucose test 2 times daily, Insulin Dep? Yes - Lancets Use with blood glucose test 2 times daily. Insulin Dep? Yes - alcohol swabs Use with blood glucose test 2 times daily. Insulin Dep? Yes - glucose 4 gram chewable tablet Take 4 tablets by mouth as needed for low blood sugar. - Blood-Glucose Meter,Continuous (FREESTYLE TOLU 3 READER) [facility] Use to check blood sugar at least four (4) times daily. - metoprolol tartrate, short acting, (LOPRESSOR) 50 mg tablet Take 1.5 tablets by mouth two times a day. - PEG 400-propylene glycol (SYSTANE ULTRA) 0.4-0.3 % ophthalmic solution Use 1 Drop in both eyes three times a day. - amLODIPine (NORVASC) 10 mg tablet Take 10 mg by mouth once daily. - Blood Pressure Test Kit-Large (Mapidy ARM BP MONITOR) 1 Each once daily. 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 Normal [facility] Cancer Ag19-9 SerPl-aCncon 0 05-25-2025 Cancer Ag 19-9 Qn 121.0 [arb'U]/mL High <36.0 C [facility] Comment on above: Order Comment: Speci men Type: BLOOD SPECIMEN Ordering Facility: [facility] Address: [address] [place] [address] Result Comment: [facility] er antigen 19-9 test is used as an aid in monitoring response to treatment or recurrence in patients with established pancreatic, hepatobiliary, or gastrointestinal malignancies. Clinical correlation is required. The CA 19-9 Antigen test was performed using the SocialF5 Unicel DXI paramagnetic particle chemiluminescent immunoassay method. Results obtained with different assay methods or kits cannot be used interchangeably. Performed By: #### 5 7021-8 #### [facility] CLIA [id number] [address] [place] [address] [place] Creatinine and Glomerular fi ltration rate.predicted panel (S/P/Bld)Ordered By: Angelia Paez on 05-25-2025 Creatinine [Mass/Vol] 0.59 mg/dL 0.58 - 0.96 mg/dL [facility] GFR/1.73 sq M.predicted among non-blacks MDRD (S/P/Bld) [Vol rate/Area] 89 mL/min/{1.73_m2} - PINF [facility] Comment on above: Estimated Glomerular Filtration Rate (eGFR) is calculated using the 2020 CKD-EPI creatinine equation. This equation utilizes serum creatinine, sex, and age as parameters. The creatinine assay has traceable calibration to isotope dilution-mass spectrometry. Refer to KDIGO guidelines for clinical interpretation. In patients with unstable renal function, e.g. those with acute kidney injury, the eGFR may not accurately reflect actual GFR. Interpretation and review of laboratory results [facility] Creatinine and Glomerular fi ltration rate.predicted panel (S/P/Bld)on 05-25-2025 Creatinine [Mass/Vol] 0.59 mg/dL Normal 0.58-0.96 [facility] Comment on above: Order Comment: Speci men Type: BLOOD SPECIMEN Ordering Facility: [facility] Address: [address] [place] [address] Performed By: #### 5 7021-8 #### [id number] [address] [place] [address] [place] eGFRcr SerPlBld CKD-EPI 2020 89 mL/min/1.73m??? Normal >=60 [facility] Comment on above: Order Comment: Speci men Type: BLOOD SPECIMEN Ordering Facility: [facility] Address: [address] [place] [address] Result Comment: Kya mated Glomerular Filtration Rate (eGFR) is calculated using the 2020 CKD-EPI creatinine equation. This equation utilizes serum creatinine, sex, and age as parameters. The creatinine assay has traceable calibration to isotope dilution-mass spectrometry. Refer to KDIGO guidelines for clinical interpretation. In patients with unstable renal function, e.g. those with acute kidney injury, the eGFR may not accurately reflect actual GFR. Performed By: #### 5 7021-8 #### [facility] [id number] [address] [place] [address] [place] REFERRAL FOR ADDITIONAL BIOM ARKER AND MOLECULAR TESTINGOrdered By: Darien Starks on 05-25-2025 APMOLR [facility] Comment on above: Request has been rec eived for evaluation and the results will be issued separately. [facility] REFERRAL FOR ADDITIONAL BIOM ARKER AND MOLECULAR TESTINGon 05-25-2025 REFERRAL FOR ADDITIONAL BIOMARKER AND MOLECULAR TESTING Normal [facility] Comment on above: Order Comment: Speci men Type: BLOOD SPECIMEN Ordering Facility: [facility] Address: [address] [place] [address] Result Comment: Requ est has been received for evaluation and the results will be issued separately. Performed By: #### 5 7021-8 #### [facility] [place] [id number] [address] [place] [address] [place] Lenin 05-13-2025 CNPN Telephone (LUKE) -- TELMA TINEO ([id number]) 1940 F Date Time Provider Department 05/13/25 MARIA ISABEL SILVERIO During your visit today, we recorded the following information about you: Maria Isabel Silverio RN 05/13/2025 2:37 PM Addendum Call Sujata or Timothy at any time to schedule appointments 05/24 or after. Sujata, daughter, calls and states that her Mom, Telma will be back in country on 05/23/25 and would like for her to be rescheduled with Dr. Yusuf and Dr. Stoner that they cancelled so she could go out of country to visit family. OK with anytime 05/24/25 or after. She also needs to reschedule with Dr. Diaz in GI at [facility]? Please call Sujata or Timothy to schedule. MAGNUS Amos Naomi 05/20/2025 2:57 PM Signed Spoke w pt daughter and she is scheduled for 05/[address] Yusuf. Will schedule w Dr. Stoner when she is here. Nasim Fragoso Allergies As of Date: 05/13/2025 Noted Allergy Reaction PENICILLINS 09/14/2021 10 - Anaphylaxis TETRACYCLINE 09/14/2021 2 - Rash TRAMADOL 07/01/2024 5 - Intolerance Comments: Trembling Date Reviewed: 04/06/2025 Reviewed by: Ayaz Nguyễn MD - Fully Assessed Reason for Visit: Future Appointment [256] Prescriptions as of 05/20/2025 - ondansetron (ZOFRAN) 8 mg tablet Take 1 tablet by mouth every 8 hours as needed. - Blood-Glucose Sensor (FREESTYLE TOLU 3 PLUS SENSOR) benjamin Apply new sensor every fifteen (15) days to upper arm. - atorvastatin (LIPITOR) 20 mg tablet Take 1 tablet by mouth once daily. - losartan (COZAAR) 100 mg tablet Take 1 tablet by mouth once daily. - ELIQUIS 5 mg tab(s) Take 1 tablet by mouth two times a day. - insulin NPH-insulin regular 70/30 (NOVOLIN 70/30 U-100 INSULIN) 100 unit/mL suspension Inject 10 Units subcutaneously two times a day with meals. - Promethazine-DM (PHENERGAN-DM) 6.25-15 mg/5 mL syrup Take 5 mL by mouth four times a day as needed. - pantoprazole DR (PROTONIX) 40 mg tablet Take 1 tablet by mouth two times a day before meals at 6 am and 4 pm. - Lancets Test Four times a day. Insulin Dep? Yes uncontrolled dm - blood sugar diagnostic (BLOOD GLUCOSE TEST) test strip Test 4 times daily, Insulin Dep? Yes dm 2 uncontrolled. - blood sugar diagnostic test strip Use with blood glucose test 2 times daily, Insulin Dep? Yes - Lancets Use with blood glucose test 2 times daily. Insulin Dep? Yes - alcohol swabs Use with blood glucose test 2 times daily. Insulin Dep? Yes - glucose 4 gram chewable tablet Take 4 tablets by mouth as needed for low blood sugar. - Blood-Glucose Meter,Continuous (FREESTYLE TOLU 3 READER) [facility] Use to check blood sugar at least four (4) times daily. - metoprolol tartrate, short acting, (LOPRESSOR) 50 mg tablet Take 1.5 tablets by mouth two times a day. - PEG 400-propylene glycol (SYSTANE ULTRA) 0.4-0.3 % ophthalmic solution Use 1 Drop in both eyes three times a day. - amLODIPine (NORVASC) 10 mg tablet Take 10 mg by mouth once daily. - Blood Pressure Test Kit-Large (Mapidy ARM BP MONITOR) 1 Each once daily. 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 History of uterine cancer [Z85.42] 09/14/2021 Bronchiectasis without complication (HCC) [J47.*11/22/2022 Atrial fibrillation, unspecified type (HCC) [I4*04/15/2023 Candidiasis of vagina [B37.31] 05/20/2023 05/20/2023 Diagnosed: 05/20/2023 Chest pain [R07.9] 03/12/2023 07/01/2024 Diagnosed: 05/20/2023 Hyperlipidemia [E78.5] 05/20/2023 Diagnosed: 05/20/2023 Impaired cognition [R41.89] 05/20/2023 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 *05/20/2023 Diagnosed: 05/20/2023 Neck pain [M54.2] 05/20/2023 05/20/2023 Diagnosed: 05/20/2023 Cerebrovascular accident (CVA) (HCC) [I63.9] 05/20/2023 Diagnosed: 05/20/2023 Jaundice [R17] 01/15/2025 03/30/2025 Pancreatic mass (HCC) [K86.89] 01/15/2025 03/30/2025 Type 2 diabetes mellitus with hyperglycemia (HC*01/18/2025 Hyperglycemia [R73.9] 01/18/2025 Elevated hemoglobin A1c [R73.09] 01/18/2025 03/30/2025 Obstructive jaundice (HCC) [K83.1] 01/18/2025 03/30/2025 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) [C*01/21/2025 Acute pneumonia [J18.9] 02/11/2025 03/30/2025 Infection due to respiratory syncytial virus (R*02/12/2025 03/30/2025 Pancreatic adenocarcinoma (HCC) [C25.9] 02/12/2025 Encounter Status:Closed by NASIM [facility] Telephone (RADTWS) -- TELMA TINEO ([id number]) 1940 F Date Time Provider Department 04/08/25 LAMAR STONER RADTWS During your visit today, we recorded the following information about you: Isela Morris, RN 04/08/2025 11:15 AM Signed FYI- Patient is scheduled for consult with Dr Stoner on 04/19/25 for palliative radiation. Patient will be out of the country 04/11-04/17. Patient is also scheduled for another ERCP 04/20. She saw Dr Nguyễn on 04/06 and is not a surgical candidate. I just wanted to make sure that you were aware. Maria Isabel Silverio, MAGNUS 04/08/2025 11:33 AM Signed Thank you, patient has cancelled all of her chemotherapy treatments. MAGNUS Amos Melissa 04/13/2025 8:59 AM Signed Noticed Rad/Onc referral dropped back onto report. On 04/12 all appointments were canceled stating patient in [place] until further notice. Allergies As of Date: 04/08/2025 Noted Allergy Reaction PENICILLINS 09/14/2021 10 - Anaphylaxis TETRACYCLINE 09/14/2021 2 - Rash TRAMADOL 07/01/2024 5 - Intolerance Comments: Trembling Date Reviewed: 04/06/2025 Reviewed by: Ayaz Nguyễn MD - Fully Assessed Reason for Visit: Appointment [186] Prescriptions as of 04/13/2025 - Blood-Glucose Sensor (FREESTYLE TOLU 3 PLUS SENSOR) benjamin Apply new sensor every fifteen (15) days to upper arm. - atorvastatin (LIPITOR) 20 mg tablet Take 1 tablet by mouth once daily. - losartan (COZAAR) 100 mg tablet Take 1 tablet by mouth once daily. - ELIQUIS 5 mg tab(s) Take 1 tablet by mouth two times a day. - insulin NPH-insulin regular 70/30 (NOVOLIN 70/30 U-100 INSULIN) 100 unit/mL suspension Inject 10 Units subcutaneously two times a day with meals. - ondansetron (ZOFRAN) 8 mg tablet Take 1 tablet by mouth every 8 hours as needed. - Insulin Syringe-Needle U-100 0.5 mL 31 gauge x 5/16 1 each two times a day. - Promethazine-DM (PHENERGAN-DM) 6.25-15 mg/5 mL syrup Take 5 mL by mouth four times a day as needed. - pantoprazole DR (PROTONIX) 40 mg tablet Take 1 tablet by mouth two times a day before meals at 6 am and 4 pm. - Lancets Test Four times a day. Insulin Dep? Yes uncontrolled dm - blood sugar diagnostic (BLOOD GLUCOSE TEST) test strip Test 4 times daily, Insulin Dep? Yes dm 2 uncontrolled. - blood sugar diagnostic test strip Use with blood glucose test 2 times daily, Insulin Dep? Yes - Lancets Use with blood glucose test 2 times daily. Insulin Dep? Yes - alcohol swabs Use with blood glucose test 2 times daily. Insulin Dep? Yes - glucose 4 gram chewable tablet Take 4 tablets by mouth as needed for low blood sugar. - Blood-Glucose Meter,Continuous (FREESTYLE TOLU 3 READER) [facility] Use to check blood sugar at least four (4) times daily. - metoprolol tartrate, short acting, (LOPRESSOR) 50 mg tablet Take 1.5 tablets by mouth two times a day. - PEG 400-propylene glycol (SYSTANE ULTRA) 0.4-0.3 % ophthalmic solution Use 1 Drop in both eyes three times a day. - amLODIPine (NORVASC) 10 mg tablet Take 10 mg by mouth once daily. - Blood Pressure Test Kit-Large (Mapidy ARM BP MONITOR) 1 Each once daily. 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 History of uterine cancer [Z85.42] 09/14/2021 Bronchiectasis without complication (HCC) [J47.*11/22/2022 Atrial fibrillation, unspecified type (HCC) [I4*04/15/2023 Candidiasis of vagina [B37.31] 05/20/2023 05/20/2023 Diagnosed: 05/20/2023 Chest pain [R07.9] 03/12/2023 07/01/2024 Diagnosed: 05/20/2023 Hyperlipidemia [E78.5] 05/20/2023 Diagnosed: 05/20/2023 Impaired cognition [R41.89] 05/20/2023 Diagnosed: 05/20/2023 assisted current use of anticoagulant therapy *05/20/2023 Diagnosed: 05/20/2023 Neck pain [M54.2] 05/20/2023 05/20/2023 Diagnosed: 05/20/2023 Cerebrovascular accident (CVA) (HCC) [I63.9] 05/20/2023 Diagnosed: 05/20/2023 Jaundice [R17] 01/15/2025 03/30/2025 Pancreatic mass (HCC) [K86.89] 01/15/2025 03/30/2025 Type 2 diabetes mellitus with hyperglycemia (HC*01/18/2025 Hyperglycemia [R73.9] 01/18/2025 Elevated hemoglobin A1c [R73.09] 01/18/2025 03/30/2025 Obstructive jaundice (HCC) [K83.1] 01/18/2025 03/30/2025 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) [C*01/21/2025 Acute pneumonia [J18.9] 02/11/2025 03/30/2025 Infection due to respiratory syncytial virus (R*02/12/2025 03/30/2025 Pancreatic adenocarcinoma (HCC) [C25.9] 02/12/2025 Encounter Status:Closed by MARIA ISABEL SILVERIO on 04/08/25 [facility] CNOValbert 04-06-2025 CNOV [facility] CNPClarissa 04-06-2025 CNPN Telephone (GSTNOR) -- TELMA TINEO ([id number]) 1940 F Date Time Provider Department 04/06/25 ANEL DIAZ During your visit today, we recorded the following information about you: Glynn, Fatoumata 04/06/2025 3:34 PM Signed Hey! This lady has PDAC s/p biliary stenting and a couple cycles of chemo. She isn't a surgical candidate and does not want to continue chemo. She is looking more palliative. She is interested in a metal stent. She also is reporting RUQ pain (no fevers or jaundice) so I'm not sure if her stent may be clogged. Also, [place] Are you on any blood thinners? Roberto, aware to stop 3 days prior Are you on any diabetic medications? no Do you have any allergies? In chart and current Scheduled ERCP for 04/20/25 8am. Allergies As of Date: 04/06/2025 Noted Allergy Reaction PENICILLINS 09/14/2021 10 - Anaphylaxis TETRACYCLINE 09/14/2021 2 - Rash TRAMADOL 07/01/2024 5 - Intolerance Comments: Trembling Date Reviewed: 04/06/2025 Reviewed by: Ayaz Nguyễn MD - Fully Assessed Reason for Visit: Appointment [[id number]] Prescriptions as of 05/25/2025 - iv contrast (will be provided with radiology test) CT Chest ABD/PEL-Inject, intravenously, once for 1 dose.No IV access, insert saline lock prior to the beginning of sedation, infusion, injection of imaging exam. Discontinue saline lock post exam. If Pt. has a central line or IVAD, may access for administration according to line specific nursing protocol. Once exam is complete flush line and de-access according to line specific nursing protocol in the CT contrast administration guidelines link. - enteric contrast (will be provided with radiology test) For CT CHESTABD/PEL W IVCON Routine order Administer, As Directed One Time Only, via Oral, Rectal, both Oral and Rectal, Enteric Tube, Stoma or Indwelling Catheter, Enteric Contrast as designated per enteric contrast guidelines - ondansetron (ZOFRAN) 8 mg tablet Take 1 tablet by mouth every 8 hours as needed. - Blood-Glucose Sensor (FREESTYLE TOLU 3 PLUS SENSOR) benjamin Apply new sensor every fifteen (15) days to upper arm. - atorvastatin (LIPITOR) 20 mg tablet Take 1 tablet by mouth once daily. - losartan (COZAAR) 100 mg tablet Take 1 tablet by mouth once daily. - ELIQUIS 5 mg tab(s) Take 1 tablet by mouth two times a day. - insulin NPH-insulin regular 70/30 (NOVOLIN 70/30 U-100 INSULIN) 100 unit/mL suspension Inject 10 Units subcutaneously two times a day with meals. - Promethazine-DM (PHENERGAN-DM) 6.25-15 mg/5 mL syrup Take 5 mL by mouth four times a day as needed. - pantoprazole DR (PROTONIX) 40 mg tablet Take 1 tablet by mouth two times a day before meals at 6 am and 4 pm. - Lancets Test Four times a day. Insulin Dep? Yes uncontrolled dm - blood sugar diagnostic (BLOOD GLUCOSE TEST) test strip Test 4 times daily, Insulin Dep? Yes dm 2 uncontrolled. - blood sugar diagnostic test strip Use with blood glucose test 2 times daily, Insulin Dep? Yes - Lancets Use with blood glucose test 2 times daily. Insulin Dep? Yes - alcohol swabs Use with blood glucose test 2 times daily. Insulin Dep? Yes - glucose 4 gram chewable tablet Take 4 tablets by mouth as needed for low blood sugar. - Blood-Glucose Meter,Continuous (FREESTYLE TOLU 3 READER) [facility] Use to check blood sugar at least four (4) times daily. - metoprolol tartrate, short acting, (LOPRESSOR) 50 mg tablet Take 1.5 tablets by mouth two times a day. - PEG 400-propylene glycol (SYSTANE ULTRA) 0.4-0.3 % ophthalmic solution Use 1 Drop in both eyes three times a day. - amLODIPine (NORVASC) 10 mg tablet Take 10 mg by mouth once daily. - Blood Pressure Test Kit-Large (FirmexLIFE ARM BP MONITOR) 1 Each once daily. 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] 09/14/2021 History of uterine cancer [Z85.42] 09/14/2021 Bronchiectasis without complication (HCC) [J47.*11/22/2022 Atrial fibrillation, unspecified type (HCC) [I4*04/15/2023 Candidiasis of vagina [B37.31] 05/20/2023 05/20/2023 Diagnosed: 05/20/2023 Chest pain [R07.9] 03/12/2023 07/01/2024 Diagnosed: 05/20/2023 Hyperlipidemia [E78.5] 05/20/2023 Diagnosed: 05/20/2023 Impaired cognition [R41.89] 05/20/2023 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 Normal [facility] CNOVon 03-30-2025 CNOV Office Visit (FAMPWS ) -- TELMA TINEO ([id number]) 1940 F Date Time Provider Department 03/30/25 2:00 PM HENOK MARTINEZ FAMPWS During your visit today, we recorded the following information about you: Pulse Blood pressure Weight 84/minute 118/68 68.9 kg Henok Martinez MD 03/30/2025 4:37 PM Signed Telma is an 84-year-old female with a history of pancreatic cancer, diabetes, and recent pneumonia, presenting for follow-up. HPI Pancreatic Cancer: - Telma has discontinued chemotherapy due to severe side effects, including fatigue, anorexia, and decreased activity levels. - Reports significant improvement in overall well-being since stopping chemotherapy. - No current abdominal pain, nausea, or emesis. - No jaundice; occasional pruritus noted. - Appetite has improved; Telma is eating more regularly. - Telma's son has informed oncologist Dr. Yusuf about the decision to discontinue chemotherapy. - Telma's son expresses concern about the need to evaluate the stent placed during surgery over three months ago by Dr. Mcgraw. Diabetes: - Blood glucose levels are reportedly well-controlled at night but tend to rise during the day. - No current edema. Recent Pneumonia: - Recent chest X-ray showed clear lungs. - No current fever, chills, or cough. - Previous cough has resolved with medication. MEDICATIONS: Current Outpatient Medications Medication Sig Insulin Syringe-Needle U-100 0.5 mL 31 gauge x 5/16 1 each two times a day. sucralfate (CARAFATE) 1 gram tablet Take 1 tablet by mouth four times daily. Promethazine-DM (PHENERGAN-DM) 6.25-15 mg/5 mL syrup Take 5 mL by mouth four times a day as needed. pantoprazole DR (PROTONIX) 40 mg tablet Take 1 tablet by mouth two times a day before meals at 6 am and 4 pm. Lancets Test Four times a day. Insulin Dep? Yes uncontrolled dm blood sugar diagnostic (BLOOD GLUCOSE TEST) test strip Test 4 times daily, Insulin Dep? Yes dm 2 uncontrolled. blood sugar diagnostic test strip Use with blood glucose test 2 times daily, Insulin Dep? Yes Lancets Use with blood glucose test 2 times daily. Insulin Dep? Yes alcohol swabs Use with blood glucose test 2 times daily. Insulin Dep? Yes glucose 4 gram chewable tablet Take 4 tablets by mouth as needed for low blood sugar. Blood-Glucose Meter,Continuous (FREESTYLE TOLU 3 READER) mis Use to check blood sugar at least four (4) times daily. Blood-Glucose Sensor (FREESTYLE TOLU 3 PLUS SENSOR) benjamin Apply new sensor every fifteen (15) days to upper arm. metoprolol tartrate, short acting, (LOPRESSOR) 50 mg tablet Take 1.5 tablets by mouth two times a day. PEG 400-propylene glycol (SYSTANE ULTRA) 0.4-0.3 % ophthalmic solution Use 1 Drop in both eyes three times a day. amLODIPine (NORVASC) 10 mg tablet Take 10 mg by mouth once daily. Blood Pressure Test Kit-Large (Mapidy ARM BP MONITOR) 1 Each once daily. atorvastatin (LIPITOR) 20 mg tablet Take 1 tablet by mouth once daily. losartan (COZAAR) 100 mg tablet Take 1 tablet by mouth once daily. ELIQUIS 5 mg tab(s) Take 1 tablet by mouth two times a day. insulin NPH-insulin regular 70/30 (NOVOLIN 70/30 U-100 INSULIN) 100 unit/mL suspension Inject 10 Units subcutaneously two times a day with meals. ondansetron (ZOFRAN) 8 mg tablet Take 1 tablet by mouth every 8 hours as needed. No current facility-administered medications for this visit. ALLERGIES: ALLERGIES Allergen Reactions Penicillins Anaphylaxis Tetracycline Rash Tramadol Intolerance Trembling PAST MEDICAL HISTORY Diagnosis Date Allergies Lundberg's palsy Bronchiectasis (HCC) Gastroesophageal reflux disease without esophagitis History of CVA (cerebrovascular accident) Mild intermittent asthma without complication (HCC) Primary hypertension Type 2 diabetes mellitus without complication, without long-term current use of insulin (HCC) PAST SURGICAL HISTORY Procedure Laterality Date APPENDECTOMY CATARACT EXTRACTION HX Bilateral COLONOSCOPY SCREENING 10/04/2022 no specimens collected, No further screening colonoscopies required HEMORRHOIDECTOMY X's HYSTERECTOMY HX without bso PAST SURGICAL HISTORY OF ? repair of cystocele RHINOPLASTY N/A SLING OPER STRES INCONTINENCE TONSILLECTOMY AND ADENOIDECTOMY FAMILY HISTORY Problem Relation Age of Onset Pancreatic Cancer Mother Lung Cancer Father No Known Problems Sister No Known Problems Sister No Known Problems Sister No Known Problems Sister No Known Problems Sister Cancer Brother No Known Problems Brother Cancer Brother No Known Problems Brother Cancer Brother Heart disease Son No Ocular Disease No Family History Social History Tobacco Use Smoking status: Former Smokeless tobacco: Never Tobacco comments: Light smoker for 7 years in early adulthood Vaping Use Vaping status: Never Used Sub (more content not included)... Normal [facility] XR CHEST 2V FRONTAL/LATon XR CHEST 2V FRONTAL/LAT * * *Final Report* * * DATE OF EXAM: Mar 18 2025 1:49PM WOX [id number] - XR CHEST 2V FRONTAL/LAT / PROCEDURE REASON: RSV (respiratory syncytial virus pneumonia) * * * * Physician Interpretation * * * * EXAMINATION: CHEST RADIOGRAPH (2 VIEW FRONTAL and LATERAL) CLINICAL HISTORY: RSV (respiratory syncytial virus pneumonia) MQ: [id number] EXAM DATE/TIME: 03/18/2025 1:49 PM COMPARISON: 02/22/2025 RESULT: Lines, tubes, and devices: None. Lungs and pleura: No consolidation. No lung mass. No pleural effusion. No pneumothorax. Cardiomediastinal silhouette: Normal cardiomediastinal silhouette. Bones and soft tissues: Unremarkable. IMPRESSION: No acute radiographic abnormality. Supervisor Billposting: AMBER Transcribe Date/Time: Mar 19 2025 12:53P Dictated by : FAIZAN CLAROS MD This examination was interpreted and the report reviewed and electronically signed by: FAIZAN CLAROS MD on Mar 19 2025 12:54PM EST [id number] [facility] TELMA TINEO ([id number]) 1940 F Date Time Provider Department 03/15/25 JUAN MIGUEL YUSUF During your visit today, we recorded the following information about you: Jeanna Glynn, MAGNUS 03/15/2025 9:20 AM Signed Spoke with Telma's son, Timothy, over the phone. He forgot about Telma's appointment and states she is not coming in for her office visit with [facility] today or for labs. She is now considering not pursuing chemotherapy treatment. She returned from out of state last night and she is leaving for [place] 03/18 to say goodbyes to her family. Son thinks she may end up staying in [place] but is not sure. Maria Isabel Silverio, MAGNUS 03/15/2025 10:28 AM Signed Call to Timothy to clarify if we needed to cancel treatment also this week. No answer, left VM for him to call the office back. MAGNUS Amos Cathleen, MAGNUS 03/15/2025 1:32 PM Addendum Received a call back from Timothy. Patient would like to put further treatments on hold. Timothy will keep us updated and call back if/when she is ready to have follow up and/or restart treatments. This nurse will make a reminder to check in with Timothy in a month if no return call by then. MAGNUS Amos Cathleen, MAGNUS 03/15/2025 12:57 PM Signed PSS: please cancel all upcoming appointments with our office. MAGNUS Amos, Mame 03/15/2025 1:01 PM Signed All appointments here have been canceled Mame Barreto Allergies As of Date: 03/15/2025 Noted Allergy Reaction PENICILLINS 09/14/2021 10 - Anaphylaxis TETRACYCLINE 09/14/2021 2 - Rash TRAMADOL 07/01/2024 5 - Intolerance Comments: Trembling Date Reviewed: 02/24/2025 Reviewed by: Shabnam Ruiz LPN - Fully Assessed Reason for Visit: Patient Update [1234] Prescriptions as of 03/15/2025 - sucralfate (CARAFATE) 1 gram tablet Take 1 tablet by mouth four times daily. - Promethazine-DM (PHENERGAN-DM) 6.25-15 mg/5 mL syrup Take 5 mL by mouth four times a day as needed. - insulin NPH-insulin regular 70/30 (NOVOLIN 70/30 U-100 INSULIN) 100 unit/mL suspension Inject 10 Units subcutaneously two times a day with meals. - pantoprazole DR (PROTONIX) 40 mg tablet Take 1 tablet by mouth two times a day before meals at 6 am and 4 pm. - Lancets Test Four times a day. Insulin Dep? Yes uncontrolled dm - blood sugar diagnostic (BLOOD GLUCOSE TEST) test strip Test 4 times daily, Insulin Dep? Yes dm 2 uncontrolled. - ondansetron (ZOFRAN) 8 mg tablet Take 1 tablet by mouth every 8 hours as needed. - blood sugar diagnostic test strip Use with blood glucose test 2 times daily, Insulin Dep? Yes - Lancets Use with blood glucose test 2 times daily. Insulin Dep? Yes - alcohol swabs Use with blood glucose test 2 times daily. Insulin Dep? Yes - glucose 4 gram chewable tablet Take 4 tablets by mouth as needed for low blood sugar. - Blood-Glucose Meter,Continuous (FREESTYLE TOLU 3 READER) misc Use to check blood sugar at least four (4) times daily. - Blood-Glucose Sensor (FREESTYLE TOLU 3 PLUS SENSOR) benjamin Apply new sensor every fifteen (15) days to upper arm. - metoprolol tartrate, short acting, (LOPRESSOR) 50 mg tablet Take 1.5 tablets by mouth two times a day. - PEG 400-propylene glycol (SYSTANE ULTRA) 0.4-0.3 % ophthalmic solution Use 1 Drop in both eyes three times a day. - atorvastatin (LIPITOR) 20 mg tablet Take 1 tablet by mouth once daily. - ELIQUIS 5 mg tab(s) Take 5 mg by mouth two times a day. - amLODIPine (NORVASC) 10 mg tablet Take 10 mg by mouth once daily. - Blood Pressure Test Kit-Large (Mapidy ARM BP MONITOR) 1 Each once daily. 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/2021 History of uterine cancer [Z85.42] 09/14/2021 Bronchiectasis without complication (HCC) [J47.*11/22/2022 Atrial fibrillation, unspecified type (HCC) [I4*04/15/2023 Candidiasis of vagina [B37.31] 05/20/2023 05/20/2023 Diagnosed: 05/20/2023 Chest pain [R07.9] 03/12/2023 07/01/2024 Diagnosed: 05/20/2023 Hyperlipidemia [E78.5] 05/20/2023 Diagnosed: 05/20/2023 Impaired cognition [R41.89] 05/20/2023 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 Normal [facility] CNPNon 03-02-2025 CNPN Telephone (LUKE) -- TELMA TINEO ([id number]) 1940 F Date Time Provider Department 03/02/25 JUAN MIGUEL YUSUF During your visit today, we recorded the following information about you: Trevor Reynoso 03/02/2025 3:31 PM Signed Timothy called asking if okay for patient to travel to [place] within the next few days by car. Please call him and advise. Maria Isabel Silverio, MAGNUS 03/03/2025 9:30 AM Signed Maria Isabel Silverio, MAGNUS 03/03/2025 9:30 AM Signed Call to Timothy, aware ok for travel to [place]. He states she is planning to be out of town for a week. 03/05 to 03/12. Appointments will need to be rescheduled. MAGNUS Amos Cathleen, RN 03/03/2025 9:30 AM Signed PSS: please move out appointments 03/09 and 03/10 out a week and adjust schedule. please call Timothy with new date/times. MAGNUS Amos, Mame 03/03/2025 10:43 AM Signed I called and spoke to Tejas and let him know the new dates and times, he stated understanding. He also stated that Telma is going to have another chest x-ray done to see if the pneumonia is gone. He stated she has not had her port placed yet because they said don't do it until her lung are all clear. He is hoping to get the port placed in [place] if the chest x-ray looks good Mame Cash 03/03/2025 11:26 AM Signed Tejas stated that she was going to come in soon for the x-ray and then based on those results she will schedule for port placement if the x-ray looks clear Mame Barreto Allergies As of Date: 03/02/2025 Noted Allergy Reaction PENICILLINS 09/14/2021 10 - Anaphylaxis TETRACYCLINE 09/14/2021 2 - Rash TRAMADOL 07/01/2024 5 - Intolerance Comments: Trembling Date Reviewed: 02/24/2025 Reviewed by: Shabnam Ruiz LPN - Fully Assessed Reason for Visit: Patient Question [7037] Prescriptions as of 03/15/2025 - sucralfate (CARAFATE) 1 gram tablet Take 1 tablet by mouth four times daily. - Promethazine-DM (PHENERGAN-DM) 6.25-15 mg/5 mL syrup Take 5 mL by mouth four times a day as needed. - insulin NPH-insulin regular 70/30 (NOVOLIN 70/30 U-100 INSULIN) 100 unit/mL suspension Inject 10 Units subcutaneously two times a day with meals. - pantoprazole DR (PROTONIX) 40 mg tablet Take 1 tablet by mouth two times a day before meals at 6 am and 4 pm. - Lancets Test Four times a day. Insulin Dep? Yes uncontrolled dm - blood sugar diagnostic (BLOOD GLUCOSE TEST) test strip Test 4 times daily, Insulin Dep? Yes dm 2 uncontrolled. - ondansetron (ZOFRAN) 8 mg tablet Take 1 tablet by mouth every 8 hours as needed. - blood sugar diagnostic test strip Use with blood glucose test 2 times daily, Insulin Dep? Yes - Lancets Use with blood glucose test 2 times daily. Insulin Dep? Yes - alcohol swabs Use with blood glucose test 2 times daily. Insulin Dep? Yes - glucose 4 gram chewable tablet Take 4 tablets by mouth as needed for low blood sugar. - Blood-Glucose Meter,Continuous (FREESTYLE TOLU 3 READER) mis Use to check blood sugar at least four (4) times daily. - Blood-Glucose Sensor (FREESTYLE TOLU 3 PLUS SENSOR) benjamin Apply new sensor every fifteen (15) days to upper arm. - metoprolol tartrate, short acting, (LOPRESSOR) 50 mg tablet Take 1.5 tablets by mouth two times a day. - PEG 400-propylene glycol (SYSTANE ULTRA) 0.4-0.3 % ophthalmic solution Use 1 Drop in both eyes three times a day. - atorvastatin (LIPITOR) 20 mg tablet Take 1 tablet by mouth once daily. - ELIQUIS 5 mg tab(s) Take 5 mg by mouth two times a day. - amLODIPine (NORVASC) 10 mg tablet Take 10 mg by mouth once daily. - Blood Pressure Test Kit-Large (Mapidy ARM BP MONITOR) 1 Each once daily. 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 History of uterine cancer [Z85.42] 09/14/2021 Bronchiectasis without complication (HCC) [J47.*11/22/2022 Atrial fibrillation, unspecified type (HCC) [I4*04/15/2023 Candidiasis of vagina [B37.31] 05/20/2023 05/20/2023 Diagnosed: 05/20/2023 Chest pain [R07.9] 03/12/2023 07/01/2024 Diagnosed: 05/20/2023 Hyperlipidemia [E78.5] 05/20/2023 Diagnosed: 05/20/2023 Impaired cognition [R41.89] 05/20/2023 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 Normal [facility] CNOVon 02-24-2025 CNOV Office Visit (FAMPWS ) -- TELMA TINEO ([id number]) 1940 F Date Time Provider Department 02/24/25 11:00 AM HEONK MARTINEZ FAMPWS During your visit today, we recorded the following information about you: Pulse Blood pressure Weight 77/minute 118/72 67.1 kg Henok Martinez MD 02/24/2025 11:45 AM Signed No chief complaint on file. HPI: Patient presents today for office visit for hospital follow up. HOSPITAL/ER FOLLOW UP: Reason for visit: pneumonia Which facility: [facility] Date of visit: 02/11/25-02/14/25 Diagnosis: acute pneumonia, RSV, pancreatic adenocarcinoma Current symptoms: still feeling very weak, says her breathing is ok. Hospital decreased her insulin and glucose is high at home. Her appetite has resumed since feeling better. They have increased to 5 units bid and sugars are in the 400's No complaints of pain. On ppi. Using miralax and now is working well. Still some cough. No fever. No shortness of breath Chest xray: Impression IMPRESSION: Mild residual though decreased reticular opacities at the lung bases Discharge summary copied and pasted: HOSPITAL COURSE: This is an 84-year-old lady, with PMH as follows: History of HTN, DM2, A-fib, CVA, GERD. She also has Hx nonresectable pancreatic adenocarcinoma. At this time, she was admitted to with chief complaint of fever, chills and body ache and cough, and was admitted with concern for pneumonia. The patient was found to be RSV positive, and was treated for pneumonia while in house. She was evaluated by ID and was placed on Levaquin. The patient was also complaining of intermittent abdominal pain. The patient has a history of biliary stent placement on 01/15/2025. EGD on 01/22/2025 showed non-bleeding duodenal ulcer. CT showed stable position of the CBD stent terminating in the ampullary diverticulum, no new intrahepatic biliary ductal dilation, unchanged pancreatic mass, no new PD dilation. GI tract without dilation or wall thickening noted on CT. Per GI regarding pain abdomen: likely multifactorial in the setting of duodenal ulcer with pancreatic cancer. At present, the patient is being discharged home in stable condition to follow up with her PCP. To note, while in house, she has not been requiring nearly as much insulin as she was prescribed at home. Her NPH insulin dose has been reduced from 17 mg bid to 5 units qday. MEDICATIONS: Current Outpatient Medications Medication Sig pantoprazole DR (PROTONIX) 40 mg tablet Take 1 tablet by mouth two times a day before meals at 6 am and 4 pm. insulin NPH-insulin regular 70/30 (NOVOLIN 70/30 U-100 INSULIN) 100 unit/mL suspension Inject 5 Units subcutaneously daily with breakfast. Patient should start on February 15, 2025. Lancets Test Four times a day. Insulin Dep? Yes uncontrolled dm blood sugar diagnostic (BLOOD GLUCOSE TEST) test strip Test 4 times daily, Insulin Dep? Yes dm 2 uncontrolled. ondansetron (ZOFRAN) 8 mg tablet Take 1 tablet by mouth every 8 hours as needed. blood sugar diagnostic test strip Use with blood glucose test 2 times daily, Insulin Dep? Yes Lancets Use with blood glucose test 2 times daily. Insulin Dep? Yes alcohol swabs Use with blood glucose test 2 times daily. Insulin Dep? Yes glucose 4 gram chewable tablet Take 4 tablets by mouth as needed for low blood sugar. Blood-Glucose Meter,Continuous (FREESTYLE TOLU 3 READER) [facility] Use to check blood sugar at least four (4) times daily. Blood-Glucose Sensor (FREESTYLE TOLU 3 PLUS SENSOR) benjamin Apply new sensor every fifteen (15) days to upper arm. metoprolol tartrate, short acting, (LOPRESSOR) 50 mg tablet Take 1.5 tablets by mouth two times a day. PEG 400-propylene glycol (SYSTANE ULTRA) 0.4-0.3 % ophthalmic solution Use 1 Drop in both eyes three times a day. atorvastatin (LIPITOR) 20 mg tablet Take 1 tablet by mouth once daily. ELIQUIS 5 mg tab(s) Take 5 mg by mouth two times a day. amLODIPine (NORVASC) 10 mg tablet Take 10 mg by mouth once daily. Blood Pressure Test Kit-Large (FirmexLIFE ARM BP MONITOR) 1 Each once daily. No current facility-administered medications for this visit. ALLERGIES: ALLERGIES Allergen Reactions Penicillins Anaphylaxis Tetracycline Rash Tramadol Intolerance Trembling PAST MEDICAL HISTORY Diagnosis Date Allergies Lundberg's palsy Bronchiectasis (HCC) Gastroesophageal reflux disease without esophagitis History of CVA (cerebrovascular accident) Mild intermittent asthma without complication (HCC) Primary hypertension Type 2 diabetes mellitus without complication, without long-term current use of insulin (HCC) PAST SURGICAL HISTORY Procedure Laterality Date APPENDECTOMY CATARACT EXTRACTION HX Bilateral COLONOSCOPY SCREENING 10/04/2022 no specimens collected, No further screening colonoscopies required HEMORRHOIDECTOMY X's HYSTERECTOMY HX w (more content not included)... Normal [facility] 02-23-2025 [facility] TELMA TINEO ([id number]) 1940 F Date Time Provider Department 02/23/25 [facility] During your visit today, we recorded the following information about you: Jose Ortiz LPN 02/23/2025 10:13 AM Signed Pt was scheduled for 20min 4c Est continued cough follow up. On 02/24/25. Pt was actually admitted to [facility] 02/10/25 and dc'd on 02/14/25 with a diagnosis of pneumonia and RSV. Pt needs rescheduled for a 4c Est Hosp/ER follow up. PETE Degroot Nat 02/23/2025 3:00 PM Signed Spoke with patient's son and rescheduled with Dr. Becker as patient will only see MD's/DO's and not LICENSED MENTAL HEALTH PROFESSIONAL's. Nat Solis Allergies As of Date: 02/23/2025 Noted Allergy Reaction PENICILLINS 09/14/2021 10 - Anaphylaxis TETRACYCLINE 09/14/2021 2 - Rash TRAMADOL 07/01/2024 5 - Intolerance Comments: Trembling Date Reviewed: 02/22/2025 Reviewed by: Senait Santiago Ma, MA - Fully Assessed Reason for Visit: Appt Needs Rescheduled [Other] Prescriptions as of 02/23/2025 - pantoprazole DR (PROTONIX) 40 mg tablet Take 1 tablet by mouth two times a day before meals at 6 am and 4 pm. - insulin NPH-insulin regular 70/30 (NOVOLIN 70/30 U-100 INSULIN) 100 unit/mL suspension Inject 5 Units subcutaneously daily with breakfast. Patient should start on February 15, 2025. - Lancets Test Four times a day. Insulin Dep? Yes uncontrolled dm - blood sugar diagnostic (BLOOD GLUCOSE TEST) test strip Test 4 times daily, Insulin Dep? Yes dm 2 uncontrolled. - ondansetron (ZOFRAN) 8 mg tablet Take 1 tablet by mouth every 8 hours as needed. - blood sugar diagnostic test strip Use with blood glucose test 2 times daily, Insulin Dep? Yes - Lancets Use with blood glucose test 2 times daily. Insulin Dep? Yes - alcohol swabs Use with blood glucose test 2 times daily. Insulin Dep? Yes - glucose 4 gram chewable tablet Take 4 tablets by mouth as needed for low blood sugar. - Blood-Glucose Meter,Continuous (FREESTYLE TOLU 3 READER) [facility] Use to check blood sugar at least four (4) times daily. - Blood-Glucose Sensor (FREESTYLE TOLU 3 PLUS SENSOR) benjamin Apply new sensor every fifteen (15) days to upper arm. - metoprolol tartrate, short acting, (LOPRESSOR) 50 mg tablet Take 1.5 tablets by mouth two times a day. - PEG 400-propylene glycol (SYSTANE ULTRA) 0.4-0.3 % ophthalmic solution Use 1 Drop in both eyes three times a day. - atorvastatin (LIPITOR) 20 mg tablet Take 1 tablet by mouth once daily. - ELIQUIS 5 mg tab(s) Take 5 mg by mouth two times a day. - amLODIPine (NORVASC) 10 mg tablet Take 10 mg by mouth once daily. - Blood Pressure Test Kit-Large (Mapidy ARM BP MONITOR) 1 Each once daily. 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 History of uterine cancer [Z85.42] 09/14/2021 Bronchiectasis without complication (HCC) [J47.*11/22/2022 Atrial fibrillation, unspecified type (HCC) [I4*04/15/2023 Candidiasis of vagina [B37.31] 05/20/2023 05/20/2023 Diagnosed: 05/20/2023 Chest pain [R07.9] 03/12/2023 07/01/2024 Diagnosed: 05/20/2023 Hyperlipidemia [E78.5] 05/20/2023 Diagnosed: 05/20/2023 Impaired cognition [R41.89] 05/20/2023 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 *05/20/2023 Diagnosed: 05/20/2023 Neck pain [M54.2] 05/20/2023 05/20/2023 Diagnosed: 05/20/2023 Cerebrovascular accident (CVA) (HCC) [I63.9] 05/20/2023 Diagnosed: 05/20/2023 Jaundice [R17] 01/15/2025 Pancreatic mass [K86.89] 01/15/2025 Type 2 diabetes mellitus with hyperglycemia (HC*01/18/2025 Hyperglycemia [R73.9] 01/18/2025 Elevated hemoglobin A1c [R73.09] 01/18/2025 Obstructive jaundice [K83.1] 01/18/2025 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) [C*01/21/2025 Acute pneumonia [J18.9] 02/11/2025 Infection due to respiratory syncytial virus (R*02/12/2025 Pancreatic adenocarcinoma (HCC) [C25.9] 02/12/2025 Encounter Status:Closed by [facility] TEL[facility]INE[facility] ([id number]) 1940 F Date Time Provider Department 02/23/25 HENOK MARTINEZ [facility] During your visit today, we recorded the following information about you: Nat Solis 02/23/2025 2:58 PM Signed Spoke with patient's son to reschedule the an appointment. Patient's son is asking if Dr. Martinez can prescribe some cough medicine as the patient's cough is not going away/stopping. Patient is seeing Dr. Becker tomorrow for Hospital Discharge Follow up (Patient will only see MD's/DO's and not LICENSED MENTAL HEALTH PROFESSIONAL's and first available Hospital D/C w/ Dr. Martinez is almost 3 weeks post-discharge.) Please advise. Henok Marcus MD 02/23/2025 4:38 PM Signed Most of the cough meds are now otc. Would start with delsym otc Shabnam Ruiz LPN 02/24/2025 8:58 AM Signed This will be addressed with provider today at visit. Allergies As of Date: 02/23/2025 Noted Allergy Reaction PENICILLINS 09/14/2021 10 - Anaphylaxis TETRACYCLINE 09/14/2021 2 - Rash TRAMADOL 07/01/2024 5 - Intolerance Comments: Trembling Date Reviewed: 02/22/2025 Reviewed by: Senait Santiago Ma, MA - Fully Assessed Reason for Visit: Medication Request [138] Prescriptions as of 02/24/2025 - pantoprazole DR (PROTONIX) 40 mg tablet Take 1 tablet by mouth two times a day before meals at 6 am and 4 pm. - insulin NPH-insulin regular 70/30 (NOVOLIN 70/30 U-100 INSULIN) 100 unit/mL suspension Inject 5 Units subcutaneously daily with breakfast. Patient should start on February 15, 2025. - Lancets Test Four times a day. Insulin Dep? Yes uncontrolled dm - blood sugar diagnostic (BLOOD GLUCOSE TEST) test strip Test 4 times daily, Insulin Dep? Yes dm 2 uncontrolled. - ondansetron (ZOFRAN) 8 mg tablet Take 1 tablet by mouth every 8 hours as needed. - blood sugar diagnostic test strip Use with blood glucose test 2 times daily, Insulin Dep? Yes - Lancets Use with blood glucose test 2 times daily. Insulin Dep? Yes - alcohol swabs Use with blood glucose test 2 times daily. Insulin Dep? Yes - glucose 4 gram chewable tablet Take 4 tablets by mouth as needed for low blood sugar. - Blood-Glucose Meter,Continuous (FREESTYLE TOLU 3 READER) [facility] Use to check blood sugar at least four (4) times daily. - Blood-Glucose Sensor (FREESTYLE TOLU 3 PLUS SENSOR) benjamin Apply new sensor every fifteen (15) days to upper arm. - metoprolol tartrate, short acting, (LOPRESSOR) 50 mg tablet Take 1.5 tablets by mouth two times a day. - PEG 400-propylene glycol (SYSTANE ULTRA) 0.4-0.3 % ophthalmic solution Use 1 Drop in both eyes three times a day. - atorvastatin (LIPITOR) 20 mg tablet Take 1 tablet by mouth once daily. - ELIQUIS 5 mg tab(s) Take 5 mg by mouth two times a day. - amLODIPine (NORVASC) 10 mg tablet Take 10 mg by mouth once daily. - Blood Pressure Test Kit-Large (Mapidy ARM BP MONITOR) 1 Each once daily. 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 History of uterine cancer [Z85.42] 09/14/2021 Bronchiectasis without complication (HCC) [J47.*11/22/2022 Atrial fibrillation, unspecified type (HCC) [I4*04/15/2023 Candidiasis of vagina [B37.31] 05/20/2023 05/20/2023 Diagnosed: 05/20/2023 Chest pain [R07.9] 03/12/2023 07/01/2024 Diagnosed: 05/20/2023 Hyperlipidemia [E78.5] 05/20/2023 Diagnosed: 05/20/2023 Impaired cognition [R41.89] 05/20/2023 Diagnosed: 05/20/2023 assisted current use of anticoagulant therapy *05/20/2023 Diagnosed: 05/20/2023 Neck pain [M54.2] 05/20/2023 05/20/2023 Diagnosed: 05/20/2023 Cerebrovascular accident (CVA) (HCC) [I63.9] 05/20/2023 Diagnosed: 05/20/2023 Jaundice [R17] 01/15/2025 Pancreatic mass [K86.89] 01/15/2025 Type 2 diabetes mellitus with hyperglycemia (HC*01/18/2025 Hyperglycemia [R73.9] 01/18/2025 Elevated hemoglobin A1c [R73.09] 01/18/2025 Obstructive jaundice [K83.1] 01/18/2025 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) [C*01/21/2025 Acute pneumonia [J18.9] 02/11/2025 Infection due to respiratory syncytial virus (R*02/12/2025 Pancreatic adenocarcinoma (HCC) [C25.9] 02/12/2025 Encounter Status:Closed by SHABNAM RUIZ on 02/24/25 Normal [facility] CBC W Auto Differential pane l (Bld)on 02-22-2025 Basophils (Bld) [#/Vol] 0.12 10*3/uL High [facility] Basophils/100 WBC (Bld) 1.2 % [facility] Differential cell count method Nom (Bld) Auto [facility] Eosinophils (Bld) [#/Vol] 0.1 10*3/uL [facility] Eosinophils/100 WBC (Bld) 1 % [facility] Erythrocyte distribution width (RBC) [Ratio] 15.2 % High 11.5 - 15.0 % [facility] Hematocrit (Bld) [Volume fraction] 31.5 % Low 36.0 - 46.0 % [facility] Hemoglobin (Bld) [Mass/Vol] 10.3 g/dL Low 11.5 - 15.5 g/dL [facility] Immature granulocytes (Bld) [#/Vol] 0.19 10*3/uL High NINF [facility] Immature granulocytes/100 WBC (Bld) 1.9 % [facility] Interpretation and review of laboratory results Abnormal [facility] Lymphocytes (Bld) [#/Vol] 1.57 10*3/uL [facility] Lymphocytes/100 WBC (Bld) 16 % [facility] MCH (RBC) [Entitic mass] 29.6 pg 26.0 - 34.0 pg [facility] MCHC (RBC) [Mass/Vol] 32.7 g/dL 30.5 - 36.0 g/dL [facility] MCV (RBC) [Entitic vol] 90.5 fL 80.0 - 100.0 fL [facility] Monocytes (Bld) [#/Vol] 1.28 10*3/uL High [facility] Monocytes/100 WBC (Bld) 13 % [facility] Neutrophils (Bld) [#/Vol] 6.58 10*3/uL [facility] Neutrophils/100 WBC (Bld) 66.9 % [facility] Nucleated RBC (Bld) [#/Vol] NINF [facility] Nucleated RBC/100 WBC (Bld) [Ratio] 0 % /100 WBC [facility] Platelet mean volume (Bld) [Entitic vol] 10.2 fL 9.0 - 12.7 fL [facility] Platelets (Bld) [#/Vol] 677 10*3/uL High [facility] RBC (Bld) [#/Vol] 3.48 10*6/uL Low 3.90 - 5.2 0 m/uL [facility] WBC (Bld) [#/Vol] 9.84 10*3/uL [facility] Basophils (Bld) [#/Vol] 0.12 10*3/uL High <0.11 [facility] Comment on above: Order Comment: Speci men Type: BLOOD SPECIMEN Ordering Facility: [facility] Address: [address] [place] [address] Performed By: #### 5 7021-8 #### [facility] CLIA [id number] [address] [place] [address] [place] Basophils/100 WBC (Bld) 1.2 % Normal [facility] Comment on above: Order Comment: Speci men Type: BLOOD SPECIMEN Ordering Facility: [facility] Address: [address] [place] [address] Performed By: #### 5 7021-8 #### [facility] CLIA [id number] [address] [place] [address] [place] Differential cell count method Nom (Bld) Auto Normal [facility] Comment on above: Order Comment: Speci men Type: BLOOD SPECIMEN Ordering Facility: [facility] Address: [address] [place] [address] Performed By: #### 5 7021-8 #### [facility] CLIA [id number] [address] [place] [address] [place] Eosinophils (Bld) [#/Vol] 0.10 10*3/uL Normal <0.46 [facility] Comment on above: Order Comment: Speci men Type: BLOOD SPECIMEN Ordering Facility: [facility] Address: [address] [place] [address] Performed By: #### 5 7021-8 #### [facility] CLIA [id number] [address] [place] [address] [place] Eosinophils/100 WBC (Bld) 1.0 % Normal [facility] Comment on above: Order Comment: Speci men Type: BLOOD SPECIMEN Ordering Facility: [facility] Address: [address] [place] [address] Performed By: #### 5 7021-8 #### [facility] CLIA [id number] [address] [place] [address] [place] Erythrocyte distribution width (RBC) [Ratio] 15.2 % High 11.5-15.0 [facility] Comment on above: Order Comment: Speci men Type: BLOOD SPECIMEN Ordering Facility: [facility] Address: [address] [place] [address] Performed By: #### 5 7021-8 #### [facility] CLIA [id number] [address] [place] [address] [place] Hematocrit (Bld) [Volume fraction] 31.5 % Low 36.0-46.0 [facility] Comment on above: Order Comment: Speci men Type: BLOOD SPECIMEN Ordering Facility: [facility] Address: [address] [place] [address] Performed By: #### 5 7021-8 #### [facility] CLIA [id number] [address] [place] [address] [place] Hemoglobin (Bld) [Mass/Vol] 10.3 g/dL Low 11.5-15.5 [facility] Comment on above: Order Comment: Speci men Type: BLOOD SPECIMEN Ordering Facility: [facility] Address: [address] [place] [address] Performed By: #### 5 7021-8 #### [facility] CLIA [id number] [address] [place] [address] [place] Immature granulocytes (Bld) [#/Vol] 0.19 10*3/uL High <0.10 [facility] Comment on above: Order Comment: Speci men Type: BLOOD SPECIMEN Ordering Facility: [facility] Address: [address] [place] [address] Performed By: #### 5 7021-8 #### [facility] CLIA [id number] [address] [place] [address] [place] Immature granulocytes/100 WBC (Bld) 1.9 % Normal [facility] Comment on above: Order Comment: Speci men Type: BLOOD SPECIMEN Ordering Facility: [facility] Address: [address] [place] [address] Performed By: #### 5 7021-8 #### [facility] CLIA [id number] [address] [place] [address] [place] Lymphocytes (Bld) [#/Vol] 1.57 10*3/uL Normal 1.00-4.00 [facility] Comment on above: Order Comment: Speci men Type: BLOOD SPECIMEN Ordering Facility: [facility] Address: [address] [place] [address] Performed By: #### 5 7021-8 #### [facility] CLIA [id number] [address] [place] [address] [place] Lymphocytes/100 WBC (Bld) 16.0 % Normal [facility] Comment on above: Order Comment: Speci men Type: BLOOD SPECIMEN Ordering Facility: [facility] Address: [address] [place] [address] Performed By: #### 5 7021-8 #### [facility] CLIA [id number] [address] [place] [address] [place] MCH (RBC) [Entitic mass] 29.6 pg Normal 26.0-34.0 [facility] Comment on above: Order Comment: Speci men Type: BLOOD SPECIMEN Ordering Facility: [facility] Address: [address] [place] [address] Performed By: #### 5 7021-8 #### [facility] CLIA [id number] [address] [place] [address] [place] MCHC (RBC) [Mass/Vol] 32.7 g/dL Normal 30.5-36.0 [facility] Comment on above: Order Comment: Speci men Type: BLOOD SPECIMEN Ordering Facility: [facility] Address: [address] [place] [address] Performed By: #### 5 7021-8 #### [facility] CLIA [id number] [address] [place] [address] [place] MCV (RBC) [Entitic vol] 90.5 fL Normal 80.0-100.0 [facility] Comment on above: Order Comment: Speci men Type: BLOOD SPECIMEN Ordering Facility: [facility] Address: [address] [place] [address] Performed By: #### 5 7021-8 #### [facility] CLIA [id number] [address] [place] [address] [place] Monocytes (Bld) [#/Vol] 1.28 10*3/uL High <0.87 [facility] Comment on above: Order Comment: Speci men Type: BLOOD SPECIMEN Ordering Facility: [facility] Address: [address] [place] [address] Performed By: #### 5 7021-8 #### [facility] CLIA [id number] [address] [place] [address] [place] Monocytes/100 WBC (Bld) 13.0 % Normal [facility] Comment on above: Order Comment: Speci men Type: BLOOD SPECIMEN Ordering Facility: [facility] Address: [address] [place] [address] Performed By: #### 5 7021-8 #### [facility] CLIA [id number] [address] [place] [address] [place] Neutrophils (Bld) [#/Vol] 6.58 10*3/uL Normal 1.45-7.50 [facility] Comment on above: Order Comment: Speci men Type: BLOOD SPECIMEN Ordering Facility: [facility] Address: [address] [place] [address] Performed By: #### 5 7021-8 #### [facility] CLIA [id number] [address] [place] [address] [place] Neutrophils/100 WBC (Bld) 66.9 % Normal [facility] Comment on above: Order Comment: Speci men Type: BLOOD SPECIMEN Ordering Facility: [facility] Address: [address] [place] [address] Performed By: #### 5 7021-8 #### [facility] CLIA [id number] [address] [place] [address] [place] Nucleated RBC (Bld) [#/Vol] 10*3/uL Normal <0.01 [facility] Comment on above: Order Comment: Speci men Type: BLOOD SPECIMEN Ordering Facility: [facility] Address: [address] [place] [address] Performed By: #### 5 7021-8 #### [facility] CLIA [id number] [address] [place] [address] [place] Nucleated RBC/100 WBC (Bld) [Ratio] 0.0 /100 WBC Normal [facility] Comment on above: Order Comment: Speci men Type: BLOOD SPECIMEN Ordering Facility: [facility] Address: [address] [place] [address] Performed By: #### 5 7021-8 #### [facility] CLIA [id number] [address] [place] [address] [place] Platelet mean volume (Bld) [Entitic vol] 10.2 fL Normal 9.0-12.7 [facility] Comment on above: Order Comment: Speci men Type: BLOOD SPECIMEN Ordering Facility: [facility] Address: [address] [place] [address] Performed By: #### 5 7021-8 #### [facility] CLIA [id number] [address] [place] [address] [place] Platelets (Bld) [#/Vol] 677 10*3/uL High 150-400 [facility] Comment on above: Order Comment: Speci men Type: BLOOD SPECIMEN Ordering Facility: [facility] Address: [address] [place] [address] Performed By: #### 5 7021-8 #### [facility] CLIA [id number] [address] [place] [address] [place] RBC (Bld) [#/Vol] 3.48 10*6/uL Low 3.90-5.20 [facility] Comment on above: Order Comment: Speci men Type: BLOOD SPECIMEN Ordering Facility: [facility] Address: [address] [place], [place] [address] Performed By: #### 5 7021-8 #### [facility] CLIA [id number] [address] [place] [address] [facility] [place] WBC (Bld) [#/Vol] 9.84 10*3/uL Normal 3.70-11.00 [facility] Comment on above: Order Comment: Speci men Type: BLOOD SPECIMEN Ordering Facility: [facility] Address: [address] [place], [place] [id number] Performed By: #### 5 7021-8 #### [facility] CLIA [id number] [address] [place] [address] [facility] [place] CNOVSPon 02-22-2025 CNOVSP Visit (SP) Office (H EMAWS) -- TELMA TINEO ([id number]) 1940 F Date Time Provider Department 02/22/25 10:20 AM JUAN MIGUEL YUSUF During your visit today, we recorded the following information about you: Temperature Pulse Blood pressure Weight 98.5 degrees 118/minute 148/71 68.3 kg Juan Miguel Yusuf MD 02/22/2025 11:16 AM Signed (Elements copied from my note dated January 25, 2025, have been reviewed and updated where appropriate, and all reflect current assessment and medical decision making from today's encounter, February 22, 2025) HISTORY OF PRESENT ILLNESS: Telma Tineo is a 84 year old female presented with painless jaundice, admitted initially at [facility], transferred for further work up at [facility]. Saw hepatobiliary surgery there, noted pancreatic mass. She underwent CBD stenting, and biopsy of mass at head of pancreas. Dx adenocarcinoma. Staging otherwise negative. Per surgery she is not currently resectable, they recommend neoadjuvant chemotherapy, followed by re assessment for surgery. Met with patient and her family today. She is a very active and functional lady, co morbidities noted, but well managed. Here for follow up, developed pneumonia was in hospital for 6 days discharged on February 14, 2025. Feels weak still, but still coughing up white to yellow phlegm. No more fever. Eating and drinking. CLINICAL IMPRESSION: Borderline rnresectable pancreatic adenocarcinoma Developed clinical pneumonia after day 8 cycle 1, remains weak. RECOMMENDATION/PLAN: 1. Plan preop NAC with gemcitabine and abraxane. Discussed also FolFIrinOx, but concerns about tolerability patient prefers gemcitabine abraxane regimen. 2. Update chest x ray. 3. Port in if chest looks improved. 4. Resume chemo at attenuated doses after that, we will reconvene prior to chemo to assess her ability to tolerate. Written and verbal health teaching given to patient, patient verbalizes understanding and agrees with treatment plan. PAST MEDICAL HISTORY Diagnosis Date Allergies Lundberg's palsy Bronchiectasis (HCC) Gastroesophageal reflux disease without esophagitis History of CVA (cerebrovascular accident) Mild intermittent asthma without complication (HCC) Primary hypertension Type 2 diabetes mellitus without complication, without long-term current use of insulin (HCC) PAST SURGICAL HISTORY Procedure Laterality Date APPENDECTOMY CATARACT EXTRACTION HX Bilateral COLONOSCOPY SCREENING 10/04/2022 no specimens collected, No further screening colonoscopies required HEMORRHOIDECTOMY X's HYSTERECTOMY HX without bso PAST SURGICAL HISTORY OF ? repair of cystocele RHINOPLASTY N/A SLING OPER STRES INCONTINENCE TONSILLECTOMY AND ADENOIDECTOMY FAMILY HISTORY Problem Relation Age of Onset Pancreatic Cancer Mother Lung Cancer Father No Known Problems Sister No Known Problems Sister No Known Problems Sister No Known Problems Sister No Known Problems Sister Cancer Brother No Known Problems Brother Cancer Brother No Known Problems Brother Cancer Brother Heart disease Son No Ocular Disease No Family History Social History Tobacco Use Smoking status: Former Smokeless tobacco: Never Tobacco comments: Light smoker for 7 years in early adulthood Vaping Use Vaping status: Never Used Substance Use Topics Alcohol use: Not Currently Drug use: Never ALLERGIES: ALLERGIES Allergen Reactions Penicillins Anaphylaxis Tetracycline Rash Tramadol Intolerance Trembling CURRENT OUTPATIENT MEDICATIONS: pantoprazole DR (PROTONIX) 40 mg tablet Take 1 tablet by mouth two times a day before meals at 6 am and 4 pm. insulin NPH-insulin regular 70/30 (NOVOLIN 70/30 U-100 INSULIN) 100 unit/mL suspension Inject 5 Units subcutaneously daily with breakfast. Patient should start on February 15, 2025. Lancets Test Four times a day. Insulin Dep? Yes uncontrolled dm blood sugar diagnostic (BLOOD GLUCOSE TEST) test strip Test 4 times daily, Insulin Dep? Yes dm 2 uncontrolled. ondansetron (ZOFRAN) 8 mg tablet Take 1 tablet by mouth every 8 hours as needed. sucralfate (CARAFATE) 1 gram tablet Take 1 tablet by mouth four times daily. Insulin Syringe-Needle U-100 0.5 mL 31 gauge x 5/16 1 Each two times a day. blood sugar diagnostic test strip Use with blood glucose test 2 times daily, Insulin Dep? Yes Lancets Use with blood glucose test 2 times daily. Insulin Dep? Yes alcohol swabs Use with blood glucose test 2 times daily. Insulin Dep? Yes glucose 4 gram chewable tablet Take 4 tablets by mouth as needed for low blood sugar. Blood-Glucose Meter,Continuous (FREESTYLE TOLU 3 READER) [facility] Use to check blood sugar at least four (4) times daily. Blood-Glucose Sensor (FREESTYLE TOLU 3 PLUS SENSOR) benjamin Apply new sensor every fifteen (15) days to upper arm. metoprolol tartr (more content not included)... Normal [facility] Lenin 02-22-2025 NÉSTORN Telephone (HEMAWS) -- TELMA TINEO ([id number]) 1940 F Date Time Provider Department 02/22/25 MARIA ISABEL SILVERIO During your visit today, we recorded the following information about you: Maria Isabel Silverio RN 02/22/2025 2:53 PM Signed Cycle 2 cancelled and needs rescheduled for week after her port is placed on 03/04/25. The rest of schedule will need adjusted. Please call patient with new times. She is aware of all this as it was discussed at OV today. MAGNUS Amos Melissa 02/23/2025 9:32 AM Signed Schedule updated Message left for patient to contact office to confirm 03/09 lab and office visit, treatment next day. Trevor Reynoso 02/23/2025 9:39 AM Signed Son called and confirmed 03/09 and 03/10 Allergies As of Date: 02/22/2025 Noted Allergy Reaction PENICILLINS 09/14/2021 10 - Anaphylaxis TETRACYCLINE 09/14/2021 2 - Rash TRAMADOL 07/01/2024 5 - Intolerance Comments: Trembling Date Reviewed: 02/22/2025 Reviewed by: Senait Santiago Ma, MAL - Fully Assessed Reason for Visit: Future Appointment [256] Prescriptions as of 02/23/2025 - pantoprazole DR (PROTONIX) 40 mg tablet Take 1 tablet by mouth two times a day before meals at 6 am and 4 pm. - insulin NPH-insulin regular 70/30 (NOVOLIN 70/30 U-100 INSULIN) 100 unit/mL suspension Inject 5 Units subcutaneously daily with breakfast. Patient should start on February 15, 2025. - Lancets Test Four times a day. Insulin Dep? Yes uncontrolled dm - blood sugar diagnostic (BLOOD GLUCOSE TEST) test strip Test 4 times daily, Insulin Dep? Yes dm 2 uncontrolled. - ondansetron (ZOFRAN) 8 mg tablet Take 1 tablet by mouth every 8 hours as needed. - blood sugar diagnostic test strip Use with blood glucose test 2 times daily, Insulin Dep? Yes - Lancets Use with blood glucose test 2 times daily. Insulin Dep? Yes - alcohol swabs Use with blood glucose test 2 times daily. Insulin Dep? Yes - glucose 4 gram chewable tablet Take 4 tablets by mouth as needed for low blood sugar. - Blood-Glucose Meter,Continuous (FREESTYLE TOLU 3 READER) [facility] Use to check blood sugar at least four (4) times daily. - Blood-Glucose Sensor (FREESTYLE TOLU 3 PLUS SENSOR) benjamin Apply new sensor every fifteen (15) days to upper arm. - metoprolol tartrate, short acting, (LOPRESSOR) 50 mg tablet Take 1.5 tablets by mouth two times a day. - PEG 400-propylene glycol (SYSTANE ULTRA) 0.4-0.3 % ophthalmic solution Use 1 Drop in both eyes three times a day. - atorvastatin (LIPITOR) 20 mg tablet Take 1 tablet by mouth once daily. - ELIQUIS 5 mg tab(s) Take 5 mg by mouth two times a day. - amLODIPine (NORVASC) 10 mg tablet Take 10 mg by mouth once daily. - Blood Pressure Test Kit-Large (Mapidy ARM BP MONITOR) 1 Each once daily. 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] 09/14/2021 History of uterine cancer [Z85.42] 09/14/2021 Bronchiectasis without complication (HCC) [J47.*11/22/2022 Atrial fibrillation, unspecified type (HCC) [I4*04/15/2023 Candidiasis of vagina [B37.31] 05/20/2023 05/20/2023 Diagnosed: 05/20/2023 Chest pain [R07.9] 03/12/2023 07/01/2024 Diagnosed: 05/20/2023 Hyperlipidemia [E78.5] 05/20/2023 Diagnosed: 05/20/2023 Impaired cognition [R41.89] 05/20/2023 Diagnosed: 05/20/2023 assisted current use of anticoagulant therapy *05/20/2023 Diagnosed: 05/20/2023 Neck pain [M54.2] 05/20/2023 05/20/2023 Diagnosed: 05/20/2023 Cerebrovascular accident (CVA) (HCC) [I63.9] 05/20/2023 Diagnosed: 05/20/2023 Jaundice [R17] 01/15/2025 Pancreatic mass [K86.89] 01/15/2025 Type 2 diabetes mellitus with hyperglycemia (HC*01/18/2025 Hyperglycemia [R73.9] 01/18/2025 Elevated hemoglobin A1c [R73.09] 01/18/2025 Obstructive jaundice [K83.1] 01/18/2025 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) [C*01/21/2025 Acute pneumonia [J18.9] 02/11/2025 Infection due to respiratory syncytial virus (R*02/12/2025 Pancreatic adenocarcinoma (HCC) [C25.9] 02/12/2025 Encounter Status:Closed by MARIA ISABEL SILVERIO on 02/23/25 Normal [facility] Comprehensive metabolic 2000 panelOrdered By: Angelia Paez on 02-22-2025 Albumin [Mass/Vol] 3.5 g/dL Low 3.9 - 4.9 g/dL [facility] ALP [Catalytic activity/Vol] 137 U/L High 34 - 123 U/L [facility] ALT [Catalytic activity/Vol] 26 U/L 7 - 38 U/L [facility] Anion gap [Moles/Vol] 9 mmol/L 8 - 15 mmol/L [facility] AST [Catalytic activity/Vol] 19 U/L 13 - 35 U/L [facility] Bilirubin [Mass/Vol] 0.8 mg/dL 0.2 - 1 .3 mg/dL [facility] Calcium [Mass/Vol] 9.1 mg/dL 8.5 - 10. 2 mg/dL [facility] Chloride [Moles/Vol] 101 mmol/L 98 - 10 7 mmol/L [facility] CO2 [Moles/Vol] 21 mmol/L Low 22 - 30 mmol/L [facility] Creatinine [Mass/Vol] 0.52 mg/dL Low 0.58 - 0.96 mg/dL [facility] GFR/1.73 sq M.predicted among non-blacks MDRD (S/P/Bld) [Vol rate/Area] 92 mL/min/{1.73_m2} - PINF [facility] Comment on above: Estimated Glomerular Filtration Rate (eGFR) is calculated using the 2020 CKD-EPI creatinine equation. This equation utilizes serum creatinine, sex, and age as parameters. The creatinine assay has traceable calibration to isotope dilution-mass spectrometry. Refer to KDIGO guidelines for clinical interpretation. In patients with unstable renal function, e.g. those with acute kidney injury, the eGFR may not accurately reflect actual GFR. Glucose [Mass/Vol] 407 mg/dL High 74 - 99 mg/dL [facility] Comment on above: The [place] Diabete s Association (ADA) provides guidance for cutoff values for fasting glucose and random glucose. The ADA defines fasting as no caloric intake for at least 8 hours. Fasting plasma glucose results between 100 to 125 mg/dL indicate increased risk for diabetes (prediabetes). Fasting plasma glucose results greater than or equal to 126 mg/dL meet the criteria for diagnosis of diabetes. In the absence of unequivocal hyperglycemia, results should be confirmed by repeat testing. In a patient with classic symptoms of hyperglycemia or hyperglycemic crisis, random plasma glucose results greater than or equal to 200 mg/dL meet the criteria for diagnosis of diabetes. Reference: Standards of Medical Care in Diabetes 2016, [place] Diabetes Association. Diabetes Care. 2016.39(Suppl 1). Interpretation and review of laboratory results Abnormal [facility] Potassium [Moles/Vol] 4.3 mmol/L 3.7 - 5.1 mmol/L [facility] Protein [Mass/Vol] 6.7 g/dL 6.3 - 8.0 g/dL [facility] Sodium [Moles/Vol] 131 mmol/L Low 136 - 144 mmol/L [facility] Urea nitrogen [Mass/Vol] 10 mg/dL 7 - 21 mg/dL [facility] Comprehensive metabolic 2000 panelon 02-22-2025 Albumin [Mass/Vol] 3.5 g/dL Low 3.9-4.9 [facility] Comment on above: Order Comment: Dayron stinson Type: BLOOD SPECIMEN Ordering Facility: [facility] Address: [address] [place] [address] Performed By: #### 2 4323-8 #### [facility] JENNIFERIA [id number] [address] [place] [address] [place] ALP [Catalytic activity/Vol] 137 U/L High 34-123 [facility] Comment on above: Order Comment: Dayron stinson Type: BLOOD SPECIMEN Ordering Facility: [facility] Address: [address] [place], [place] [address] [address] Performed By: #### 2 4323-8 #### [facility] CLIA [id number] [address] [place] [address] [place] ALT [Catalytic activity/Vol] 26 U/L Normal 7-38 [facility] Comment on above: Order Comment: Speci men Type: BLOOD SPECIMEN Ordering Facility: [facility] Address: [address] [place] [address] Performed By: #### 2 4323-8 #### [facility] CLIA [id number] [address] [place] [address] [place] Anion gap [Moles/Vol] 9 mmol/L Normal 8-15 [facility] Comment on above: Order Comment: Speci men Type: BLOOD SPECIMEN Ordering Facility: [facility] Address: [address] [place] [address] Performed By: #### 2 4323-8 #### [facility] CLIA [id number] [address] [place] [address] [place] AST [Catalytic activity/Vol] 19 U/L Normal 13-35 [facility] Comment on above: Order Comment: Speci men Type: BLOOD SPECIMEN Ordering Facility: [facility] Address: [address] [place] [address] Performed By: #### 2 4323-8 #### [facility] CLIA [id number] [address] [place] [address] [place] Bilirubin [Mass/Vol] 0.8 mg/dL Normal 0.2-1.3 [facility] Comment on above: Order Comment: Speci men Type: BLOOD SPECIMEN Ordering Facility: [facility] Address: [address] [place] [address] Performed By: #### 2 4323-8 #### [facility] CLIA [id number] [address] [place] [address] [place] Calcium [Mass/Vol] 9.1 mg/dL Normal 8.5-10.2 [facility] Comment on above: Order Comment: Speci men Type: BLOOD SPECIMEN Ordering Facility: [facility] Address: [address] [place] [address] Performed By: #### 2 4323-8 #### [facility] CLIA [id number] [address] [place] [address] [place] Chloride [Moles/Vol] 101 mmol/L Normal 98-107 [facility] Comment on above: Order Comment: Speci men Type: BLOOD SPECIMEN Ordering Facility: [facility] Address: [address] [place] [address] Performed By: #### 2 4323-8 #### [facility] CLIA [id number] [address] [place] [address] [place] CO2 [Moles/Vol] 21 mmol/L Low 22-30 [facility] Comment on above: Order Comment: Speci men Type: BLOOD SPECIMEN Ordering Facility: [facility] Address: [address] [place] [address] Performed By: #### 2 4323-8 #### [facility] CLIA [id number] [address] [place] [address] [place] Creatinine [Mass/Vol] 0.52 mg/dL Low 0.58-0.96 [facility] Comment on above: Order Comment: Speci men Type: BLOOD SPECIMEN Ordering Facility: [facility] Address: [address] [place] [address] Performed By: #### 2 4323-8 #### [facility] CLIA [id number] [address] [place] [address] [place] Creatinine and Glomerular filtration rate.predicted panel (S/P/Bld) 92 mL/min/1.73m??? Normal >=60 [facility] Comment on above: Order Comment: Speci men Type: BLOOD SPECIMEN Ordering Facility: [facility] Address: [address] [place] [address] Result Comment: Kya mated Glomerular Filtration Rate (eGFR) is calculated using the 2020 CKD-EPI creatinine equation. This equation utilizes serum creatinine, sex, and age as parameters. The creatinine assay has traceable calibration to isotope dilution-mass spectrometry. Refer to KDIGO guidelines for clinical interpretation. In patients with unstable renal function, e.g. those with acute kidney injury, the eGFR may not accurately reflect actual GFR. Performed By: #### 2 4323-8 #### [id number] [address] [place] [address] [place] Glucose [Mass/Vol] 407 mg/dL High 74-99 [facility] Comment on above: Order Comment: Dayron stinson Type: BLOOD SPECIMEN Ordering Facility: [facility] Address: [address] [place] [address] Result Comment: The [place] Diabetes Association (ADA) provides guidance for cutoff values for fasting glucose and random glucose. The ADA defines fasting as no caloric intake for at least 8 hours. Fasting plasma glucose results between 100 to 125 mg/dL indicate increased risk for diabetes (prediabetes). Fasting plasma glucose results greater than or equal to 126 mg/dL meet the criteria for diagnosis of diabetes. In the absence of unequivocal hyperglycemia, results should be confirmed by repeat testing. In a patient with classic symptoms of hyperglycemia or hyperglycemic crisis, random plasma glucose results greater than or equal to 200 mg/dL meet the criteria for diagnosis of diabetes. Reference: Standards of Medical Care in Diabetes 2016, [place] Diabetes [employer]. Diabetes Care. 2016.39(Suppl 1). Performed By: #### 2 4323-8 #### [facility] [id number] [address] [place] [address] [place] Potassium [Moles/Vol] 4.3 mmol/L Normal 3.7-5.1 [facility] Comment on above: Order Comment: Dayron stinson Type: BLOOD SPECIMEN Ordering Facility: [facility] Address: [address] [place], [place] [address] Performed By: #### 2 4323-8 #### [facility] CLIA [id number] [address] [place] [address] [place] Protein [Mass/Vol] 6.7 g/dL Normal 6.3-8.0 [facility] Comment on above: Order Comment: Speci men Type: BLOOD SPECIMEN Ordering Facility: [facility] Address: [address] [place] [address] Performed By: #### 2 4323-8 #### [facility] CLIA [id number] [address] [place] [address] [place] Sodium [Moles/Vol] 131 mmol/L Low 136-144 [facility] Comment on above: Order Comment: Speci men Type: BLOOD SPECIMEN Ordering Facility: [facility] Address: [address] [place] [address] Performed By: #### 2 4323-8 #### [facility] CLIA [id number] [address] [place] [address] [place] Urea nitrogen [Mass/Vol] 10 mg/dL Normal 7-21 [facility] Comment on above: Order Comment: Speci men Type: BLOOD SPECIMEN Ordering Facility: [facility] Address: [address] [place] [address] Performed By: #### 2 4323-8 #### [facility] CLIA [id number] [address] [place] [address] [place] XR CHEST 2V FRONTAL/LATon XR CHEST 2V FRONTAL/LAT * * *Final Report* * * DATE OF EXAM: Feb 22 2025 11:11AM [id number] - XR CHEST 2V FRONTAL/LAT / PROCEDURE REASON: multiple diagnoses * * * * Physician Interpretation * * * * EXAMINATION: CHEST RADIOGRAPH (2 VIEW FRONTAL and LATERAL) CLINICAL HISTORY: 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) Pneumonia of both lower lobes due to infectious organism MQ: XC2_6 EXAM DATE/TIME: 02/22/2025 11:11 AM COMPARISON: Chest x-ray dated 02/10/2025 RESULT: Lines, tubes, and devices: None. Lungs and pleura: Mild residual though decreased reticular opacities at the lung bases. No pleural effusion. No pneumothorax. Cardiomediastinal silhouette: Stable cardiomediastinal silhouette. Bones and soft tissues: Degenerative changes are present within the thoracic spine. Amorphous calcifications adjacent to the bilateral humeral greater tuberosities. IMPRESSION: Mild residual though decreased reticular opacities at the lung bases Supervisor [place]: [facility] Transcribe Date/Time: Feb 22 2025 11:18A Dictated by : ELOISA YANG MD This examination was interpreted and the report reviewed and electronically signed by: ELOISA YANG MD on Feb 22 2025 11:19AM EST [id number] Normal [facility] XR Chest PA and Lateralon IMPRESSION: Mild residual though decreased reticular opacities at the lung bases Supervisor [place]: [facility] Transcribe Date/Time: Feb 22 2025 11:18A Dictated by : ELOISA YANG MD This examination was interpreted and the report reviewed and electronically signed by: ELOISA YANG MD on Feb 22 2025 11:19AM EST DIVISION OF RADIOLOGY * * *Final Report* * * DATE OF EXAM: Feb 22 2025 11:11AM [id number] - XR CHEST 2V FRONTAL/LAT / PROCEDURE REASON: multiple diagnoses * * * * Physician Interpretation * * * * EXAMINATION: CHEST RADIOGRAPH (2 VIEW FRONTAL & LATERAL) CLINICAL HISTORY: 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) Pneumonia of both lower lobes due to infectious organism MQ: XC2_6 EXAM DATE/TIME: 02/22/2025 11:11 AM COMPARISON: Chest x-ray dated 02/10/2025 RESULT: Lines, tubes, and devices: None. Lungs and pleura: Mild residual though decreased reticular opacities at the lung bases. No pleural effusion. No pneumothorax. Cardiomediastinal silhouette: Stable cardiomediastinal silhouette. Bones and soft tissues: Degenerative changes are present within the thoracic spine. Amorphous calcifications adjacent to the bilateral humeral greater tuberosities. DIVISION OF RADIOLOGY Provider, [facility] - 02/22/2025 * * *Final Report* * * DATE OF EXAM: Feb 22 2025 11:11AM [id number] - XR CHEST 2V FRONTAL/LAT / PROCEDURE REASON: multiple diagnoses * * * * Physician Interpretation * * * * EXAMINATION: CHEST RADIOGRAPH (2 VIEW FRONTAL & LATERAL) CLINICAL HISTORY: 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) Pneumonia of both lower lobes due to infectious organism MQ: XC2_6 EXAM DATE/TIME: 02/22/2025 11:11 AM COMPARISON: Chest x-ray dated 02/10/2025 RESULT: Lines, tubes, and devices: None. Lungs and pleura: Mild residual though decreased reticular opacities at the lung bases. No pleural effusion. No pneumothorax. Cardiomediastinal silhouette: Stable cardiomediastinal silhouette. Bones and soft tissues: Degenerative changes are present within the thoracic spine. Amorphous calcifications adjacent to the bilateral humeral greater tuberosities. IMPRESSION IMPRESSION: Mild residual though decreased reticular opacities at the lung bases [facility] [place] Transcribe Date/Time: Feb 22 2025 11:18A Dictated by : ELOISA YANG MD This examination was interpreted and the report reviewed and electronically signed by: ELOISA YANG MD on Feb 22 2025 11:19AM EST [facility] Radiology Study observation (narrative) [facility] XR Chest PA and LateralOrder ed By: Aisha Provider on 02-22-2025 [facility] Lenin 02-15-2025 IMMANUEL Telephone (KENISHAR) -- TELMA TINEO ([id number]) 1940 F Date Time Provider Department 02/15/25 RADHA LOUIS During your visit today, we recorded the following information about you: Allergies As of Date: 02/15/2025 Noted Allergy Reaction PENICILLINS 09/14/2021 10 - Anaphylaxis TETRACYCLINE 09/14/2021 2 - Rash TRAMADOL 07/01/2024 5 - Intolerance Comments: Trembling Date Reviewed: 02/14/2025 Reviewed by: Gloria Last RN - Fully Assessed Prescriptions as of 02/15/2025 - dronabinol (MARINOL) 2.5 mg capsule Take 1 capsule by mouth two times a day before meals for 30 days. - levoFLOXacin (LEVAQUIN) 750 mg tablet Take 1 tablet by mouth once daily for 3 days. - pantoprazole DR (PROTONIX) 40 mg tablet Take 1 tablet by mouth two times a day before meals at 6 am and 4 pm. - guaiFENesin-dextromethorph an (ROBITUSSIN DM) 100-10 mg/5 mL syrup Take 10 mL by mouth every 4 hours as needed for cough for up to 5 days. - insulin NPH-insulin regular 70/30 (NOVOLIN 70/30 U-100 INSULIN) 100 unit/mL suspension Inject 5 Units subcutaneously daily with breakfast. Patient should start on February 15, 2025. - Lancets Test Four times a day. Insulin Dep? Yes uncontrolled dm - blood sugar diagnostic (BLOOD GLUCOSE TEST) test strip Test 4 times daily, Insulin Dep? Yes dm 2 uncontrolled. - ondansetron (ZOFRAN) 8 mg tablet Take 1 tablet by mouth every 8 hours as needed. - sucralfate (CARAFATE) 1 gram tablet Take 1 tablet by mouth four times daily. - Insulin Syringe-Needle U-100 0.5 mL 31 gauge x 5/16 1 Each two times a day. - blood sugar diagnostic test strip Use with blood glucose test 2 times daily, Insulin Dep? Yes - Lancets Use with blood glucose test 2 times daily. Insulin Dep? Yes - alcohol swabs Use with blood glucose test 2 times daily. Insulin Dep? Yes - glucose 4 gram chewable tablet Take 4 tablets by mouth as needed for low blood sugar. - Blood-Glucose Meter,Continuous (FREESTYLE TOLU 3 READER) [facility] Use to check blood sugar at least four (4) times daily. - Blood-Glucose Sensor (FREESTYLE TOLU 3 PLUS SENSOR) benjamin Apply new sensor every fifteen (15) days to upper arm. - metoprolol tartrate, short acting, (LOPRESSOR) 50 mg tablet Take 1.5 tablets by mouth two times a day. - PEG 400-propylene glycol (SYSTANE ULTRA) 0.4-0.3 % ophthalmic solution Use 1 Drop in both eyes three times a day. - atorvastatin (LIPITOR) 20 mg tablet Take 1 tablet by mouth once daily. - ELIQUIS 5 mg tab(s) Take 5 mg by mouth two times a day. - amLODIPine (NORVASC) 10 mg tablet Take 10 mg by mouth once daily. - Blood Pressure Test Kit-Large (Mapidy ARM BP MONITOR) 1 Each once daily. 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] 09/14/2021 History of uterine cancer [Z85.42] 09/14/2021 Bronchiectasis without complication (HCC) [J47.*11/22/2022 Atrial fibrillation, unspecified type (HCC) [I4*04/15/2023 Candidiasis of vagina [B37.31] 05/20/2023 05/20/2023 Diagnosed: 05/20/2023 Chest pain [R07.9] 03/12/2023 07/01/2024 Diagnosed: 05/20/2023 Hyperlipidemia [E78.5] 05/20/2023 Diagnosed: 05/20/2023 Impaired cognition [R41.89] 05/20/2023 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 *05/20/2023 Diagnosed: 05/20/2023 Neck pain [M54.2] 05/20/2023 05/20/2023 Diagnosed: 05/20/2023 Cerebrovascular accident (CVA) (HCC) [I63.9] 05/20/2023 Diagnosed: 05/20/2023 Jaundice [R17] 01/15/2025 Pancreatic mass [K86.89] 01/15/2025 Type 2 diabetes mellitus with hyperglycemia (HC*01/18/2025 Hyperglycemia [R73.9] 01/18/2025 Elevated hemoglobin A1c [R73.09] 01/18/2025 Obstructive jaundice [K83.1] 01/18/2025 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) [C*01/21/2025 Acute pneumonia [J18.9] 02/11/2025 Infection due to respiratory syncytial virus (R*02/12/2025 Pancreatic adenocarcinoma (HCC) [C25.9] 02/12/2025 Encounter Status:Closed by RADHA LOUIS on 02/15/25 [facility] Telephone ([facility]) -- TELMA TINEO ([id number]) 1940 F Date Time Provider Department 02/15/25 MARIA ISABEL SILVERIO During your visit today, we recorded the following information about you: Maria Isabel Silverio RN 02/15/2025 10:58 AM Signed DISCHARGE CALL BACK Today's date: February 15, 2025 Notified of Pt discharge by: Erin Patient discharged on 02/14/25 from [facility] to Home Primary Cancer Diagnosis: pancreatic Admitting Diagnosis: acute pneumonia Discharge Summary/SBAR reviewed: Yes Handoff Discussed with Transitional Flux Mixer: N/A Psychosocial Risk Factors: None If patient discharged to SNF/Rehab Facility, phone call completed to reinforce discharge instructions and follow up: N/A Call Disposition: Called patient and spoke with Timothy Patient identified by name and date of . YES Patient with symptom issues: No Pain: No=0 (pain 0 on a scale of 0-10). Is patient followed by Palliative Medicine? No Palliative Medicine follow up: N/A Any new barriers to care identified? No Any new referrals needed? No Social Work Follow-Up visit scheduled? NA Does the patient need interventions No or same day appointment: No MEDICATION ADHERENCE Patient discharged with prescriptions? Yes, Marinol, Robitussin/Mucinex, Levaquin Discharge prescriptions filled: Yes Patient understands when to take prescriptions: Yes FOLLOW UP Patient scheduled for follow-up appointment within 5 business days of discharge? Yes Patient reminded of follow-up appointment with [facility] provider, Dr. Yusuf on 02/22/25: Yes Discussed Has follow up with PCP. Will discuss labs with Dr. Yusuf and mary anne for port on . Will call back if plan needs to change. Timothy is picking up Rx at this time. Questions answered. PATIENT EDUCATION / REINFORCEMENT Patient verbalizes understanding of when to seek Medical Attention? YES Patient verbalizes understanding of after hours and weekend phone number? YES MAGNUS Yuan Cathleen, RN 02/15/2025 12:[address] Yusuf and mary anne for port this . Keep appointments as scheduled. Elaina Silverio RN Allergies As of Date: 02/15/2025 Noted Allergy Reaction PENICILLINS 09/14/2021 10 - Anaphylaxis TETRACYCLINE 09/14/2021 2 - Rash TRAMADOL 07/01/2024 5 - Intolerance Comments: Trembling Date Reviewed: 02/14/2025 Reviewed by: Gloria Last RN - Fully Assessed Reason for Visit: Flux Mixer - Hospital Follow Up [3601] Prescriptions as of 02/15/2025 - dronabinol (MARINOL) 2.5 mg capsule Take 1 capsule by mouth two times a day before meals for 30 days. - levoFLOXacin (LEVAQUIN) 750 mg tablet Take 1 tablet by mouth once daily for 3 days. - pantoprazole DR (PROTONIX) 40 mg tablet Take 1 tablet by mouth two times a day before meals at 6 am and 4 pm. - guaiFENesin-dextromethorph an (ROBITUSSIN DM) 100-10 mg/5 mL syrup Take 10 mL by mouth every 4 hours as needed for cough for up to 5 days. - insulin NPH-insulin regular 70/30 (NOVOLIN 70/30 U-100 INSULIN) 100 unit/mL suspension Inject 5 Units subcutaneously daily with breakfast. Patient should start on February 15, 2025. - Lancets Test Four times a day. Insulin Dep? Yes uncontrolled dm - blood sugar diagnostic (BLOOD GLUCOSE TEST) test strip Test 4 times daily, Insulin Dep? Yes dm 2 uncontrolled. - ondansetron (ZOFRAN) 8 mg tablet Take 1 tablet by mouth every 8 hours as needed. - sucralfate (CARAFATE) 1 gram tablet Take 1 tablet by mouth four times daily. - Insulin Syringe-Needle U-100 0.5 mL 31 gauge x 5/16 1 Each two times a day. - blood sugar diagnostic test strip Use with blood glucose test 2 times daily, Insulin Dep? Yes - Lancets Use with blood glucose test 2 times daily. Insulin Dep? Yes - alcohol swabs Use with blood glucose test 2 times daily. Insulin Dep? Yes - glucose 4 gram chewable tablet Take 4 tablets by mouth as needed for low blood sugar. - Blood-Glucose Meter,Continuous (FREESTYLE TOLU 3 READER) misc Use to check blood sugar at least four (4) times daily. - Blood-Glucose Sensor (FREESTYLE TOLU 3 PLUS SENSOR) benjamin Apply new sensor every fifteen (15) days to upper arm. - metoprolol tartrate, short acting, (LOPRESSOR) 50 mg tablet Take 1.5 tablets by mouth two times a day. - PEG 400-propylene glycol (SYSTANE ULTRA) 0.4-0.3 % ophthalmic solution Use 1 Drop in both eyes three times a day. - atorvastatin (LIPITOR) 20 mg tablet Take 1 tablet by mouth once daily. - ELIQUIS 5 mg tab(s) Take 5 mg by mouth two times a day. - amLODIPine (NORVASC) 10 mg tablet Take 10 mg by mouth once daily. - Blood Pressure Test Kit-Large (FirmexLIFE ARM BP MONITOR) 1 Each once daily. Problem List As Of Date 02/15/2025 Noted Resolved Mild intermittent asthma without complication [*09/14/2021 Primary hypertension [I10] 09/14/2021 Type 2 diabetes mellitu (more content not included)... Normal [facility] Basic metabolic 2000 panelon 02-14-2025 Anion gap [Moles/Vol] 10 mmol/L Normal 8-15 [facility] Comment on above: Order Comment: Speci men Type: BLOOD SPECIMENOrdering Facility: [facility] Address: [address] [place] [address] Performed By: #### 2 4321-2 ####[facility] LABORATORYCLIA [id number] [place] [address] [place] Calcium [Mass/Vol] 8.3 mg/dL Low 8.5-10.2 [facility] Comment on above: Order Comment: Speci men Type: BLOOD SPECIMENOrdering Facility: [facility] Address: [address] [place] [address] Performed By: #### 2 4321-2 ####[facility] LABORATORYCLIA [id number] [place] [id number] [place] Chloride [Moles/Vol] 102 mmol/L Normal 98-107 [facility] Comment on above: Order Comment: Speci men Type: BLOOD SPECIMENOrdering Facility: [facility] Address: [address] [place] [address] Performed By: #### 2 4321-2 ####[facility] LABORATORYCLIA [id number] [address] [place] CO2 [Moles/Vol] 21 mmol/L Low 22-30 [facility] Comment on above: Order Comment: Speci men Type: BLOOD SPECIMENOrdering Facility: [facility] Address: [address] [place] [address] Performed By: #### 2 4321-2 ####[facility] LABORATORYCLIA [id number] [address] OF [facility] Creatinine [Mass/Vol] 0.54 mg/dL Low 0.58-0.96 [facility] Comment on above: Order Comment: Speci men Type: BLOOD SPECIMENOrdering Facility: [facility] Address: [address] [place] [address] Performed By: #### 2 4321-2 ####[facility] LABORATORYCLIA [id number] [address] Creatinine and Glomerular filtration rate.predicted panel (S/P/Bld) 91 mL/min/1.73m??? Normal >=60 [facility] Comment on above: Order Comment: Speci men Type: BLOOD SPECIMENOrdering Facility: [facility] Address: [address] [place] [address] Result Comment: Kya mated Glomerular Filtration Rate (eGFR) is calculated using the 2020 CKD-EPI creatinine equation. This equation utilizes serum creatinine, sex, and age as parameters. The creatinine assay has traceable calibration to isotope dilution-mass spectrometry. Refer to KDIGO guidelines for clinical interpretation. In patients with unstable renal function, e.g. those with acute kidney injury, the eGFR may not accurately reflect actual GFR. Performed By: #### 2 4321-2 ####[facility] LABORATORYCLIA [id number] [place] [address] [place] Glucose [Mass/Vol] 166 mg/dL High 74-99 [facility] Comment on above: Order Comment: Dayron stinson Type: BLOOD SPECIMENOrdering Facility: [facility] Address: [address] [place] [address] Result Comment: The [place] Diabetes Association (ADA) provides guidance for cutoff values for fasting glucose and random glucose. The ADA defines fasting as no caloric intake for at least 8 hours. Fasting plasma glucose results between 100 to 125 mg/dL indicate increased risk for diabetes (prediabetes).Fasting plasma glucose results greater than or equal to 126 mg/dL meet the criteria for diagnosis of diabetes. In the absence of unequivocal hyperglycemia, results should be confirmed by repeat testing. In a patient with classic symptoms of hyperglycemia or hyperglycemic crisis, random plasma glucose results greater than or equal to 200 mg/dL meet the criteria for diagnosis of diabetes.Reference: Standards of Medical Care in Diabetes 2016, [place] [employer] Association. Diabetes Care. 2016.39(Suppl 1). Performed By: #### 2 4321-2 ####[facility] LABORATORYCLIA [id number] [place] [address] [place] Potassium [Moles/Vol] 3.6 mmol/L Low 3.7-5.1 [facility] Comment on above: Order Comment: Dayron stinson Type: BLOOD SPECIMENOrdering Facility: [facility] Address: [address] [place] [id number] Performed By: #### 2 4321-2 ####[facility] LABORATORYCLIA [id number] [place] [id number] [place] Sodium [Moles/Vol] 133 mmol/L Low 136-144 [facility] Comment on above: Order Comment: Dayron stinson Type: BLOOD SPECIMENOrdering Facility: [facility] Address: [address] [place] [address] Performed By: #### 2 4321-2 ####[facility] LABORATORYCLIA [id number] [address] STATES [facility] Urea nitrogen [Mass/Vol] 8 mg/dL Normal 7- [facility] Comment on above: Order Comment: Speci men Type: BLOOD SPECIMENOrdering Facility: [facility] Address: [address] [place] [address] Performed By: #### 2 4321-2 ####[facility] LABORATORYCLIA [id number] [address] [place] CBC W Auto Differential pane l (Bld)on 02-14-2025 Basophils (Bld) [#/Vol] 10*3/uL Normal <0.11 [facility] Comment on above: Order Comment: Speci men Type: BLOOD SPECIMENOrdering Facility: [facility] Address: [address] [place] [address] Performed By: #### 5 7021-8 ####[facility] LABORATORYCLIA [id number] [address] [place] [facility] Basophils/100 WBC (Bld) 0.7 % Normal [facility] Comment on above: Order Comment: Speci men Type: BLOOD SPECIMENOrdering Facility: [facility] Address: [address] [place] [address] Performed By: #### 5 7021-8 ####[facility] LABORATORYCLIA [id number] [address] Differential cell count method Nom (Bld) Auto Normal [facility] Comment on above: Order Comment: Speci men Type: BLOOD SPECIMENOrdering Facility: [facility] Address: [address] [place] [address] Performed By: #### 5 7021-8 ####[facility] LABORATORYCLIA [id number] [address] [place] Eosinophils (Bld) [#/Vol] 0.11 10*3/uL Normal <0.46 [facility] Comment on above: Order Comment: Speci men Type: BLOOD SPECIMENOrdering Facility: [facility] Address: [address] [place] [address] Performed By: #### 5 7021-8 ####[facility] LABORATORYCLIA [id number] [address] [place] Eosinophils/100 WBC (Bld) 3.7 % Normal [facility] Comment on above: Order Comment: Speci men Type: BLOOD SPECIMENOrdering Facility: [facility] Address: [address] [place] [address] Performed By: #### 5 7021-8 ####[facility] LABORATORYCLIA [id number] [address] [place] Erythrocyte distribution width (RBC) [Ratio] 14.0 % Normal 11.5-15.0 [facility] Comment on above: Order Comment: Speci men Type: BLOOD SPECIMENOrdering Facility: [facility] Address: [address] [place] [address] Performed By: #### 5 7021-8 ####[facility] LABORATORYCLIA [id number] [address] [place] Hematocrit (Bld) [Volume fraction] 24.7 % Low 36.0-46.0 [facility] Comment on above: Order Comment: Speci men Type: BLOOD SPECIMENOrdering Facility: [facility] Address: [address] [place] [address] Performed By: #### 5 7021-8 ####[facility] LABORATORYCLIA [id number] [address] [place] Hemoglobin (Bld) [Mass/Vol] 8.5 g/dL Low 11.5-15.5 [facility] Comment on above: Order Comment: Speci men Type: BLOOD SPECIMENOrdering Facility: [facility] Address: [address] [place] [address] Performed By: #### 5 7021-8 ####[facility] LABORATORYCLIA [id number] [address] [place] Immature granulocytes (Bld) [#/Vol] 0.08 10*3/uL Normal <0.10 [facility] Comment on above: Order Comment: Speci men Type: BLOOD SPECIMENOrdering Facility: [facility] Address: [address] [place] [address] Performed By: #### 5 7021-8 ####[facility] LABORATORYCLIA [id number] [address] STATES OF [facility] Immature granulocytes/100 WBC (Bld) 2.7 % Normal [facility] Comment on above: Order Comment: Speci men Type: BLOOD SPECIMENOrdering Facility: [facility] Address: [address] [place] [address] Performed By: #### 5 7021-8 ####[facility] LABORATORYCLIA [id number] [address] [place] Lymphocytes (Bld) [#/Vol] 0.67 10*3/uL Low 1.00-4.00 [facility] Comment on above: Order Comment: Speci men Type: BLOOD SPECIMENOrdering Facility: [facility] Address: [address] [place] [address] Performed By: #### 5 7021-8 ####[facility] LABORATORYCLIA [id number] [address] [place] [facility] Lymphocytes/100 WBC (Bld) 22.6 % Normal [facility] Comment on above: Order Comment: Speci men Type: BLOOD SPECIMENOrdering Facility: [facility] Address: [address] [place] [address] Performed By: #### 5 7021-8 ####[facility] LABORATORYCLIA [id number] [address] [place] MCH (RBC) [Entitic mass] 31.0 pg Normal 26.0-34.0 [facility] Comment on above: Order Comment: Speci men Type: BLOOD SPECIMENOrdering Facility: [facility] Address: [address] [place] [address] Performed By: #### 5 7021-8 ####[facility] LABORATORYCLIA [id number] [address] [place] MCHC (RBC) [Mass/Vol] 34.4 g/dL Normal 30.5-36.0 [facility] Comment on above: Order Comment: Speci men Type: BLOOD SPECIMENOrdering Facility: [facility] Address: [address] [place] [address] Performed By: #### 5 7021-8 ####[facility] LABORATORYCLIA [id number] [address] [place] MCV (RBC) [Entitic vol] 90.1 fL Normal 80.0-100.0 [facility] Comment on above: Order Comment: Speci men Type: BLOOD SPECIMENOrdering Facility: [facility] Address: [address] [place] [address] Performed By: #### 5 7021-8 ####[facility] LABORATORYCLIA [id number] [address] [place] Monocytes (Bld) [#/Vol] 0.68 10*3/uL Normal <0.87 [facility] Comment on above: Order Comment: Speci men Type: BLOOD SPECIMENOrdering Facility: [facility] Address: [address] [place] [address] Performed By: #### 5 7021-8 ####[facility] LABORATORYCLIA [id number] [address] Monocytes/100 WBC (Bld) 23.0 % Normal [facility] Comment on above: Order Comment: Speci men Type: BLOOD SPECIMENOrdering Facility: [facility] Address: [address] [place] [address] Performed By: #### 5 7021-8 ####[facility] LABORATORYCLIA [id number] [place] [address] [place] Neutrophils (Bld) [#/Vol] 1.40 10*3/uL Low 1.45-7.50 [facility] Comment on above: Order Comment: Speci men Type: BLOOD SPECIMENOrdering Facility: [facility] Address: [address] [place] [address] Performed By: #### 5 7021-8 ####[facility] LABORATORYCLIA [id number] [address] Neutrophils/100 WBC (Bld) 47.3 % Normal [facility] Comment on above: Order Comment: Speci men Type: BLOOD SPECIMENOrdering Facility: [facility] Address: [address] [place] [address] Performed By: #### 5 7021-8 ####[facility] LABORATORYCLIA [id number] [address] [place] Nucleated RBC (Bld) [#/Vol] 10*3/uL Normal <0.01 [facility] Comment on above: Order Comment: Speci men Type: BLOOD SPECIMENOrdering Facility: [facility] Address: [address] [place] [address] Performed By: #### 5 7021-8 ####[facility] LABORATORYCLIA [id number] [address] Nucleated RBC/100 WBC (Bld) [Ratio] 0.0 /100 WBC Normal [facility] Comment on above: Order Comment: Speci men Type: BLOOD SPECIMENOrdering Facility: [facility] Address: [address] [place] [address] Performed By: #### 5 7021-8 ####[facility] LABORATORYCLIA [id number] [address] [place] Platelet mean volume (Bld) [Entitic vol] 11.4 fL Normal 9.0-12.7 [facility] Comment on above: Order Comment: Speci men Type: BLOOD SPECIMENOrdering Facility: [facility] Address: [address] [place] [address] Performed By: #### 5 7021-8 ####[facility] LABORATORYCLIA [id number] [address] OF [place] Platelets (Bld) [#/Vol] 192 10*3/uL Normal 150-400 [facility] Comment on above: Order Comment: Speci men Type: BLOOD SPECIMENOrdering Facility: [facility] Address: [address] [place] [address] Performed By: #### 5 7021-8 ####[facility] LABORATORYCLIA [id number] [address] [place] RBC (Bld) [#/Vol] 2.74 10*6/uL Low 3.90-5.20 [facility] Comment on above: Order Comment: Speci men Type: BLOOD SPECIMENOrdering Facility: [facility] Address: [address] [place] [address] Performed By: #### 5 7021-8 ####[facility] LABORATORYCLIA [id number] [address] STATES OF [facility] WBC (Bld) [#/Vol] 2.96 10*3/uL Low 3.70-11.00 [facility] Comment on above: Order Comment: Speci men Type: BLOOD SPECIMENOrdering Facility: [facility] Address: [address] [place] [address] Performed By: #### 5 7021-8 ####[facility] LABORATORYCLIA [id number] [address] [place] CNDSon 02-14-2025 CNDS Normal [facility] THERAPY NTon 02-14-2025 THERAPY NT Normal [facility] Basic metabolic 2000 panelon 02-13-2025 Anion gap [Moles/Vol] 12 mmol/L Normal 8-15 [facility] Comment on above: Order Comment: Speci men Type: BLOOD SPECIMENOrdering Facility: [facility] Address: [address] [place] [address] Performed By: #### 2 4321-2 ####[facility] LABORATORYCLIA [id number] [address] STATES OF [facility] Calcium [Mass/Vol] 8.2 mg/dL Low 8.5-10.2 [facility] Comment on above: Order Comment: Speci men Type: BLOOD SPECIMENOrdering Facility: [facility] Address: [address] [place] [address] Performed By: #### 2 4321-2 ####[facility] LABORATORYCLIA [id number] [address] Chloride [Moles/Vol] 101 mmol/L Normal 98-107 [facility] Comment on above: Order Comment: Speci men Type: BLOOD SPECIMENOrdering Facility: [facility] Address: [address] [place] [address] Performed By: #### 2 4321-2 ####[facility] LABORATORYCLIA [id number] [address] OF [facility] CO2 [Moles/Vol] 19 mmol/L Low 22-30 [facility] Comment on above: Order Comment: Speci men Type: BLOOD SPECIMENOrdering Facility: [facility] Address: [address] [place] [address] Performed By: #### 2 4321-2 ####[facility] LABORATORYCLIA [id number] [address] Creatinine [Mass/Vol] 0.61 mg/dL Normal 0.58-0.96 [facility] Comment on above: Order Comment: Speci men Type: BLOOD SPECIMENOrdering Facility: [facility] Address: [address] [place] [address] Performed By: #### 2 4321-2 ####[facility] LABORATORYCLIA [id number] [address] Creatinine and Glomerular filtration rate.predicted panel (S/P/Bld) 88 mL/min/1.73m??? Normal >=60 [facility] Comment on above: Order Comment: Speci men Type: BLOOD SPECIMENOrdering Facility: [facility] Address: [address] [place] [address] Result Comment: Kya mated Glomerular Filtration Rate (eGFR) is calculated using the 2020 CKD-EPI creatinine equation. This equation utilizes serum creatinine, sex, and age as parameters. The creatinine assay has traceable calibration to isotope dilution-mass spectrometry. Refer to KDIGO guidelines for clinical interpretation. In patients with unstable renal function, e.g. those with acute kidney injury, the eGFR may not accurately reflect actual GFR. Performed By: #### 2 4321-2 ####[facility] LABORATORYCLIA [id number] [place] [address] [place] Glucose [Mass/Vol] 168 mg/dL High 74-99 [facility] Comment on above: Order Comment: Dayron shantell Type: BLOOD SPECIMENOrdering Facility: [facility] Address: [address] [place] [address] Result Comment: The [place] Diabetes Association (ADA) provides guidance for cutoff values for fasting glucose and random glucose. The ADA defines fasting as no caloric intake for at least 8 hours. Fasting plasma glucose results between 100 to 125 mg/dL indicate increased risk for diabetes (prediabetes).Fasting plasma glucose results greater than or equal to 126 mg/dL meet the criteria for diagnosis of diabetes. In the absence of unequivocal hyperglycemia, results should be confirmed by repeat testing. In a patient with classic symptoms of hyperglycemia or hyperglycemic crisis, random plasma glucose results greater than or equal to 200 mg/dL meet the criteria for diagnosis of diabetes.Reference: Standards of Medical Care in Diabetes 2016, [place] [employer]. Diabetes Care. 2016.39(Suppl 1). Performed By: #### 2 4321-2 ####[facility] LABORATORYCLIA [id number] [place] [address] [place] Potassium [Moles/Vol] 3.7 mmol/L Normal 3.7-5.1 [facility] Comment on above: Order Comment: Dayron stinson Type: BLOOD SPECIMENOrdering Facility: [facility] Address: [address] [place] [address] Performed By: #### 2 4321-2 ####[facility] LABORATORYCLIA [id number] [place] [address] [place] Sodium [Moles/Vol] 132 mmol/L Low 136-144 [facility] Comment on above: Order Comment: Elinori shantell Type: BLOOD SPECIMENOrdering Facility: [facility] Address: [address] [place] [address] Performed By: #### 2 4321-2 ####[facility] LABORATORYCLIA [id number] [place] [address] [place] Urea nitrogen [Mass/Vol] 9 mg/dL Normal 7-21 [facility] Comment on above: Order Comment: Speci men Type: BLOOD SPECIMENOrdering Facility: [facility] Address: [address] [place] [address] Performed By: #### 2 4321-2 ####[facility] LABORATORYCLIA [id number] [address] STATES [facility] CBC panel Auto (Bld)on 02-13 Erythrocyte distribution width (RBC) [Ratio] 13.6 % Normal 11.5-15.0 [facility] Comment on above: Order Comment: Speci men Type: BLOOD SPECIMENOrdering Facility: [facility] Address: [address] [place] [address] Performed By: #### 5 8410-2 ####[facility] LABORATORYCLIA [id number] [address] STATES OF [facility] Hematocrit (Bld) [Volume fraction] 25.8 % Low 36.0-46.0 [facility] Comment on above: Order Comment: Speci men Type: BLOOD SPECIMENOrdering Facility: [facility] Address: [address] [place] [address] Performed By: #### 5 8410-2 ####[facility] LABORATORYCLIA [id number] [address] Hemoglobin (Bld) [Mass/Vol] 8.9 g/dL Low 11.5-15.5 [facility] Comment on above: Order Comment: Speci men Type: BLOOD SPECIMENOrdering Facility: [facility] Address: [address] [place] [address] Performed By: #### 5 8410-2 ####[facility] LABORATORYCLIA [id number] [address] MCH (RBC) [Entitic mass] 30.9 pg Normal 26.0-34.0 [facility] Comment on above: Order Comment: Speci men Type: BLOOD SPECIMENOrdering Facility: [facility] Address: [address] [place] [address] Performed By: #### 5 8410-2 ####[facility] LABORATORYCLIA [id number] [address] STATES OF [facility] MCHC (RBC) [Mass/Vol] 34.5 g/dL Normal 30.5-36.0 [facility] Comment on above: Order Comment: Speci men Type: BLOOD SPECIMENOrdering Facility: [facility] Address: [address] [place] [address] Performed By: #### 5 8410-2 ####[facility] LABORATORYCLIA [id number] [address] [place] MCV (RBC) [Entitic vol] 89.6 fL Normal 80.0-100.0 [facility] Comment on above: Order Comment: Speci men Type: BLOOD SPECIMENOrdering Facility: [facility] Address: [address] [place] [address] Performed By: #### 5 8410-2 ####[facility] LABORATORYCLIA [id number] [address] Nucleated RBC (Bld) [#/Vol] 10*3/uL Normal <0.01 [facility] Comment on above: Order Comment: Speci men Type: BLOOD SPECIMENOrdering Facility: [facility] Address: [address] [place] [address] Performed By: #### 5 8410-2 ####[facility] LABORATORYCLIA [id number] [address] [place] Platelet mean volume (Bld) [Entitic vol] 11.6 fL Normal 9.0-12.7 [facility] Comment on above: Order Comment: Speci men Type: BLOOD SPECIMENOrdering Facility: [facility] Address: [address] [place] [address] Performed By: #### 5 8410-2 ####[facility] LABORATORYCLIA [id number] [address] [place] Platelets (Bld) [#/Vol] 148 10*3/uL Low 150-400 [facility] Comment on above: Order Comment: Speci men Type: BLOOD SPECIMENOrdering Facility: [facility] Address: [address] [place] [address] Performed By: #### 5 8410-2 ####[facility] LABORATORYCLIA [id number] [address] STATES OF [facility] RBC (Bld) [#/Vol] 2.88 10*6/uL Low 3.90-5.20 [facility] Comment on above: Order Comment: Speci men Type: BLOOD SPECIMENOrdering Facility: [facility] Address: [address] [place] [address] Performed By: #### 5 8410-2 ####[facility] LABORATORYCLIA [id number] [address] STATES OF [facility] WBC (Bld) [#/Vol] 2.36 10*3/uL Low 3.70-11.00 [facility] Comment on above: Order Comment: Speci men Type: BLOOD SPECIMENOrdering Facility: [facility] Address: [address] [place] [address] Performed By: #### 5 8410-2 ####[facility] LABORATORYCLIA [id number] [address] [place] CONSULT PROGon 02-13-2025 CONSULT PROG Normal [facility] THERAPY NTon 02-13-2025 THERAPY NT Normal [facility] Basic metabolic 2000 panelon 02-12-2025 Anion gap [Moles/Vol] 9 mmol/L Normal 8-15 [facility] Comment on above: Order Comment: Speci men Type: BLOOD SPECIMENOrdering Facility: [facility] Address: [address] [place] [address] Performed By: #### 2 4321-2 ####[facility] LABORATORYCLIA [id number] [address] STATES [facility] Calcium [Mass/Vol] 7.3 mg/dL Low 8.5-10.2 [facility] Comment on above: Order Comment: Speci men Type: BLOOD SPECIMENOrdering Facility: [facility] Address: [address] [place] [address] Performed By: #### 2 4321-2 ####[facility] LABORATORYCLIA [id number] [place] [address] [place] Chloride [Moles/Vol] 100 mmol/L Normal 98-107 [facility] Comment on above: Order Comment: Speci men Type: BLOOD SPECIMENOrdering Facility: [facility] Address: [address] [place] [address] Performed By: #### 2 4321-2 ####[facility] LABORATORYCLIA [id number] [place] [id number] [place] CO2 [Moles/Vol] 18 mmol/L Low 22-30 [facility] Comment on above: Order Comment: Speci men Type: BLOOD SPECIMENOrdering Facility: [facility] Address: [address] [place] [address] Performed By: #### 2 4321-2 ####[facility] LABORATORYCLIA [id number] [address] STATES OF [facility] Creatinine [Mass/Vol] 0.58 mg/dL Normal 0.58-0.96 [facility] Comment on above: Order Comment: Speci men Type: BLOOD SPECIMENOrdering Facility: [facility] Address: [address] [place] [address] Performed By: #### 2 4321-2 ####[facility] LABORATORYCLIA [id number] [address] Creatinine and Glomerular filtration rate.predicted panel (S/P/Bld) 89 mL/min/1.73m??? Normal >=60 [facility] Comment on above: Order Comment: Speci men Type: BLOOD SPECIMENOrdering Facility: [facility] Address: [address] [place] [address] Result Comment: Kya mated Glomerular Filtration Rate (eGFR) is calculated using the 2020 CKD-EPI creatinine equation. This equation utilizes serum creatinine, sex, and age as parameters. The creatinine assay has traceable calibration to isotope dilution-mass spectrometry. Refer to KDIGO guidelines for clinical interpretation. In patients with unstable renal function, e.g. those with acute kidney injury, the eGFR may not accurately reflect actual GFR. Performed By: #### 2 4321-2 ####[facility] LABORATORYCLIA [id number] [place] [address] [place] Glucose [Mass/Vol] 144 mg/dL High 74-99 [facility] Comment on above: Order Comment: Dayron stinson Type: BLOOD SPECIMENOrdering Facility: [facility] Address: [address] [place] [address] Result Comment: The [place] Diabetes [employer] (ADA) provides guidance for cutoff values for fasting glucose and random glucose. The ADA defines fasting as no caloric intake for at least 8 hours. Fasting plasma glucose results between 100 to 125 mg/dL indicate increased risk for diabetes (prediabetes).Fasting plasma glucose results greater than or equal to 126 mg/dL meet the criteria for diagnosis of diabetes. In the absence of unequivocal hyperglycemia, results should be confirmed by repeat testing. In a patient with classic symptoms of hyperglycemia or hyperglycemic crisis, random plasma glucose results greater than or equal to 200 mg/dL meet the criteria for diagnosis of diabetes.Reference: Standards of Medical Care in Diabetes 2016, [place] [employer]. Diabetes Care. 2016.39(Suppl 1). Performed By: #### 2 4321-2 ####[facility] LABORATORYCLIA [id number] [place] [address] [place] Potassium [Moles/Vol] 3.6 mmol/L Low 3.7-5.1 [facility] Comment on above: Order Comment: Dayron stinson Type: BLOOD SPECIMENOrdering Facility: [facility] Address: [address] [place] [address] Performed By: #### 2 4321-2 ####[facility] LABORATORYCLIA [id number] [place] [id number] [place] Sodium [Moles/Vol] 127 mmol/L Low 136-144 [facility] Comment on above: Order Comment: Dayron stinson Type: BLOOD SPECIMENOrdering Facility: [facility] Address: [address] [place] [address] Performed By: #### 2 4321-2 ####[facility] LABORATORYCLIA [id number] [place] [id number] [place] Urea nitrogen [Mass/Vol] 7 mg/dL Normal 7-21 [facility] Comment on above: Order Comment: Speci men Type: BLOOD SPECIMENOrdering Facility: [facility] Address: [address] [place] [address] Performed By: #### 2 4321-2 ####[facility] LABORATORYCLIA [id number] [place] [id number] [place] CASE MANAGEMon 02-12-2025 CASE MANAGEM Normal [facility] CBC W Auto Differential pane l (Bld)on 02-12-2025 Basophils (Bld) [#/Vol] 10*3/uL Normal <0.11 [facility] Comment on above: Order Comment: Speci men Type: BLOOD SPECIMENOrdering Facility: [facility] Address: [address] [place] [address] Performed By: #### 5 7021-8 ####[facility] LABORATORYCLIA [id number] [address] [place] Basophils/100 WBC (Bld) 0.0 % Normal [facility] Comment on above: Order Comment: Speci men Type: BLOOD SPECIMENOrdering Facility: [facility] Address: [address] [place] [address] Performed By: #### 5 7021-8 ####[facility] LABORATORYCLIA [id number] [address] [place] Differential cell count method Nom (Bld) Auto Normal [facility] Comment on above: Order Comment: Speci men Type: BLOOD SPECIMENOrdering Facility: [facility] Address: [address] [place] [address] Performed By: #### 5 7021-8 ####[facility] LABORATORYCLIA [id number] [place] [address] [place] Eosinophils (Bld) [#/Vol] 0.04 10*3/uL Normal <0.46 [facility] Comment on above: Order Comment: Speci men Type: BLOOD SPECIMENOrdering Facility: [facility] Address: [address] [place] [address] Performed By: #### 5 7021-8 ####[facility] LABORATORYCLIA [id number] [address] [place] Eosinophils/100 WBC (Bld) 1.8 % Normal [facility] Comment on above: Order Comment: Speci men Type: BLOOD SPECIMENOrdering Facility: [facility] Address: [address] [place] [address] Performed By: #### 5 7021-8 ####[facility] LABORATORYCLIA [id number] [address] [place] Erythrocyte distribution width (RBC) [Ratio] 13.5 % Normal 11.5-15.0 [facility] Comment on above: Order Comment: Speci men Type: BLOOD SPECIMENOrdering Facility: [facility] Address: [address] [place] [address] Performed By: #### 5 7021-8 ####[facility] LABORATORYCLIA [id number] [address] [place] Hematocrit (Bld) [Volume fraction] 25.1 % Low 36.0-46.0 [facility] Comment on above: Order Comment: Speci men Type: BLOOD SPECIMENOrdering Facility: [facility] Address: [address] [place] [address] Performed By: #### 5 7021-8 ####[facility] LABORATORYCLIA [id number] [address] [place] Hemoglobin (Bld) [Mass/Vol] 8.3 g/dL Low 11.5-15.5 [facility] Comment on above: Order Comment: Speci men Type: BLOOD SPECIMENOrdering Facility: [facility] Address: [address] [place] [address] Performed By: #### 5 7021-8 ####[facility] LABORATORYCLIA [id number] [address] [place] Immature granulocytes (Bld) [#/Vol] 0.05 10*3/uL Normal <0.10 [facility] Comment on above: Order Comment: Speci men Type: BLOOD SPECIMENOrdering Facility: [facility] Address: [address] [place] [address] Performed By: #### 5 7021-8 ####[facility] LABORATORYCLIA [id number] [address] [place] Immature granulocytes/100 WBC (Bld) 2.2 % Normal [facility] Comment on above: Order Comment: Speci men Type: BLOOD SPECIMENOrdering Facility: [facility] Address: [address] [place] [address] Performed By: #### 5 7021-8 ####[facility] LABORATORYCLIA [id number] [address] [place] Lymphocytes (Bld) [#/Vol] 0.35 10*3/uL Low 1.00-4.00 [facility] Comment on above: Order Comment: Speci men Type: BLOOD SPECIMENOrdering Facility: [facility] Address: [address] [place] [address] Performed By: #### 5 7021-8 ####[facility] LABORATORYCLIA [id number] [address] Lymphocytes/100 WBC (Bld) 15.4 % Normal [facility] Comment on above: Order Comment: Speci men Type: BLOOD SPECIMENOrdering Facility: [facility] Address: [address] [place] [address] Performed By: #### 5 7021-8 ####[facility] LABORATORYCLIA [id number] [address] [place] MCH (RBC) [Entitic mass] 30.4 pg Normal 26.0-34.0 [facility] Comment on above: Order Comment: Speci men Type: BLOOD SPECIMENOrdering Facility: [facility] Address: [address] [place] [address] Performed By: #### 5 7021-8 ####[facility] LABORATORYCLIA [id number] [address] [place] MCHC (RBC) [Mass/Vol] 33.1 g/dL Normal 30.5-36.0 [facility] Comment on above: Order Comment: Speci men Type: BLOOD SPECIMENOrdering Facility: [facility] Address: [address] [place] [address] Performed By: #### 5 7021-8 ####[facility] LABORATORYCLIA [id number] [place] [address] [place] MCV (RBC) [Entitic vol] 91.9 fL Normal 80.0-100.0 [facility] Comment on above: Order Comment: Speci men Type: BLOOD SPECIMENOrdering Facility: [facility] Address: [address] [place] [address] Performed By: #### 5 7021-8 ####[facility] LABORATORYCLIA [id number] [place] [address] [place] Monocytes (Bld) [#/Vol] 0.22 10*3/uL Normal <0.87 [facility] Comment on above: Order Comment: Speci men Type: BLOOD SPECIMENOrdering Facility: [facility] Address: [address] [place] [address] Performed By: #### 5 7021-8 ####[facility] LABORATORYCLIA [id number] [address] [place] Monocytes/100 WBC (Bld) 9.7 % Normal [facility] Comment on above: Order Comment: Speci men Type: BLOOD SPECIMENOrdering Facility: [facility] Address: [address] [place] [address] Performed By: #### 5 7021-8 ####[facility] LABORATORYCLIA [id number] [place] [address] [place] Neutrophils (Bld) [#/Vol] 1.61 10*3/uL Normal 1.45-7.50 [facility] Comment on above: Order Comment: Speci men Type: BLOOD SPECIMENOrdering Facility: [facility] Address: [address] [place] [address] Performed By: #### 5 7021-8 ####[facility]ORATORYCLIA [id number] [address] [place] Neutrophils/100 WBC (Bld) 70.9 % Normal [facility] Comment on above: Order Comment: Speci men Type: BLOOD SPECIMENOrdering Facility: [facility] Address: [address] [place] [address] Performed By: #### 5 7021-8 ####[facility] LABORATORYCLIA [id number] [address] [place] Nucleated RBC (Bld) [#/Vol] 10*3/uL Normal <0.01 [facility] Comment on above: Order Comment: Speci men Type: BLOOD SPECIMENOrdering Facility: [facility] Address: [address] [place] [address] Performed By: #### 5 7021-8 ####[facility] LABORATORYCLIA [id number] [address] Nucleated RBC/100 WBC (Bld) [Ratio] 0.0 /100 WBC Normal [facility] Comment on above: Order Comment: Speci men Type: BLOOD SPECIMENOrdering Facility: [facility] Address: [address] [place] [address] Performed By: #### 5 7021-8 ####[facility] LABORATORYCLIA [id number] [address] [place] Platelet mean volume (Bld) [Entitic vol] 12.0 fL Normal 9.0-12.7 [facility] Comment on above: Order Comment: Speci men Type: BLOOD SPECIMENOrdering Facility: [facility] Address: [address] [place] [address] Performed By: #### 5 7021-8 ####[facility] LABORATORYCLIA [id number] [address] OF [place] Platelets (Bld) [#/Vol] 117 10*3/uL Low 150-400 [facility] Comment on above: Order Comment: Speci men Type: BLOOD SPECIMENOrdering Facility: [facility] Address: [address] [place] [address] Result Comment: No c lot detected. Performed By: #### 5 7021-8 ####[facility] LABORATORYCLIA [id number] [address] STATES OF [facility] RBC (Bld) [#/Vol] 2.73 10*6/uL Low 3.90-5.20 [facility] Comment on above: Order Comment: Speci men Type: BLOOD SPECIMENOrdering Facility: [facility] Address: [address] [place] [address] Performed By: #### 5 7021-8 ####[facility] LABORATORYCLIA [id number] [address] WBC (Bld) [#/Vol] 2.27 10*3/uL Low 3.70-11.00 [facility] Comment on above: Order Comment: Speci men Type: BLOOD SPECIMENOrdering Facility: [facility] Address: [address] [place] [address] Performed By: #### 5 7021-8 ####[facility] LABORATORYCLIA [id number] [address] OF [facility] CONSULTon 02-12-2025 CONSULT Normal [facility] CONSULT PROGon 02-12-2025 CONSULT PROG Normal [facility] CONSULT PROG Normal [facility] NUTRITIONon 02-12-2025 NUTRITION Normal [facility] ALLIED HEALTHon 02-11-2025 ALLIED HEALTH Normal [facility] ALLIED HEALTH Normal [facility] Bacteria Spec Resp Culton Bacteria identified Respiratory culture Nom (Unsp spec) CULTURE, RESPIRATORY: Moderate Normal respiratory murray present GRAM STAIN: Moderate Mixed oral murray No Polymorphonuclear Leukocytes Few Epithelial cells Abnormal [facility] Comment on above: Performed By: #### 3 2355-0 ####[facility] LABORATORYCLIA [id number] [address] [place] Basic metabolic 2000 panelon 02-11-2025 Anion gap [Moles/Vol] 11 mmol/L Normal 8-15 [facility] Comment on above: Order Comment: Speci men Type: BLOOD SPECIMENOrdering Facility: [facility] Address: [address] [place] [id number] Performed By: #### 2 4325-3, 3040-3, 57518-9 ####[facility] LABORATORYCLIA [id number] [place] [address] [place] Calcium [Mass/Vol] 8.2 mg/dL Low 8.5-10.2 [facility] Comment on above: Order Comment: Speci men Type: BLOOD SPECIMENOrdering Facility: [facility] Address: [address] [place] [address] Performed By: #### 2 4325-3, 3040-3, 51296-6 ####[facility] LABORATORYCLIA [id number] [place] [address] [place] Chloride [Moles/Vol] 93 mmol/L Low 98-107 [facility] Comment on above: Order Comment: Speci men Type: BLOOD SPECIMENOrdering Facility: [facility] Address: [address] [place] [address] Performed By: #### 2 4325-3, 3040-3, 92614-1 ####[facility] LABORATORYCLIA [id number] [place] [address] [place] CO2 [Moles/Vol] 21 mmol/L Low 22-30 [facility] Comment on above: Order Comment: Speci men Type: BLOOD SPECIMENOrdering Facility: [facility] Address: [address] [place] [address] Performed By: #### 2 4325-3, 3040-3, 31938-5 ####[facility] LABORATORYCLIA [id number] [place] [address] [place] Creatinine [Mass/Vol] 0.63 mg/dL Normal 0.58-0.96 [facility] Comment on above: Order Comment: Speci men Type: BLOOD SPECIMENOrdering Facility: [facility] Address: [address] [place] [address] Performed By: #### 2 4325-3, 3040-3, 03080-8 ####[facility] HOSPITALIA [id number] [address] [place] Creatinine and Glomerular filtration rate.predicted panel (S/P/Bld) 88 mL/min/1.73m??? Normal >=60 [facility] Comment on above: Order Comment: Dayron shantell Type: BLOOD SPECIMENOrdering Facility: [facility] Address: [address] [place] [address] Result Comment: Kya mated Glomerular Filtration Rate (eGFR) is calculated using the 2020 CKD-EPI creatinine equation. This equation utilizes serum creatinine, sex, and age as parameters. The creatinine assay has traceable calibration to isotope dilution-mass spectrometry. Refer to KDIGO guidelines for clinical interpretation. In patients with unstable renal function, e.g. those with acute kidney injury, the eGFR may not accurately reflect actual GFR. Performed By: #### 2 4325-3, 3040-3, 00880-4 ####[facility] HOSPITALIA [id number] [address] [place] Glucose [Mass/Vol] 251 mg/dL High 74-99 [facility] Comment on above: Order Comment: Dayron stinson Type: BLOOD SPECIMENOrdering Facility: [facility] Address: [address] [place] [address] Result Comment: The [place] Diabetes [employer] (ADA) provides guidance for cutoff values for fasting glucose and random glucose. The ADA defines fasting as no caloric intake for at least 8 hours. Fasting plasma glucose results between 100 to 125 mg/dL indicate increased risk for diabetes (prediabetes).Fasting plasma glucose results greater than or equal to 126 mg/dL meet the criteria for diagnosis of diabetes. In the absence of unequivocal hyperglycemia, results should be confirmed by repeat testing. In a patient with classic symptoms of hyperglycemia or hyperglycemic crisis, random plasma glucose results greater than or equal to 200 mg/dL meet the criteria for diagnosis of diabetes.Reference: Standards of Medical Care in Diabetes 2016, [place] [employer]. Diabetes Care. 2016.39(Suppl 1). Performed By: #### 2 4325-3, 3040-3, 12575-8 ####[facility] HOSPITALIA [id number] [place], [place] [id number] [place] [address] [place] [place] Potassium [Moles/Vol] 4.3 mmol/L Normal 3.7-5.1 [facility] Comment on above: Order Comment: Speci men Type: BLOOD SPECIMENOrdering Facility: [facility] Address: [address] [place] [address] Performed By: #### 2 4325-3, 3040-3, 85673-8 ####[facility] LABORATORYCLIA [id number] [place] [address] [place] Sodium [Moles/Vol] 125 mmol/L Low 136-144 [facility] Comment on above: Order Comment: Speci men Type: BLOOD SPECIMENOrdering Facility: [facility] Address: [address] [place] [address] Performed By: #### 2 4325-3, 3040-3, 42961-1 ####[facility] LABORATORYCLIA [id number] [address] STATES [place] Urea nitrogen [Mass/Vol] 8 mg/dL Normal 7-21 [facility] Comment on above: Order Comment: Speci men Type: BLOOD SPECIMENOrdering Facility: [facility] Address: [address] [place] [address] Performed By: #### 2 4325-3, 3040-3, 46478-8 ####[facility] LABORATORYCLIA [id number] [address] [place] CASE MGT INIT ASSESon 2024 CASE MGT INIT ASSES Normal [facility] CBC panel Auto (Bld)on 02-11 Erythrocyte distribution width (RBC) [Ratio] 13.5 % Normal 11.5-15.0 [facility] Comment on above: Order Comment: Speci men Type: BLOOD SPECIMENOrdering Facility: [facility] Address: [address] [place] [address] Performed By: #### 5 8410-2 ####[facility] LABORATORYCLIA [id number] [address] [place] Hematocrit (Bld) [Volume fraction] 25.5 % Low 36.0-46.0 [facility] Comment on above: Order Comment: Speci men Type: BLOOD SPECIMENOrdering Facility: [facility] Address: [address] [place] [address] Performed By: #### 5 8410-2 ####[facility] LABORATORYCLIA [id number] [address] STATES OF [facility] Hemoglobin (Bld) [Mass/Vol] 8.8 g/dL Low 11.5-15.5 [facility] Comment on above: Order Comment: Speci men Type: BLOOD SPECIMENOrdering Facility: [facility] Address: [address] [place] [address] Performed By: #### 5 8410-2 ####[facility] LABORATORYCLIA [id number] [address] STATES OF [facility] MCH (RBC) [Entitic mass] 31.2 pg Normal 26.0-34.0 [facility] Comment on above: Order Comment: Speci men Type: BLOOD SPECIMENOrdering Facility: [facility] Address: [address] [place] [address] Performed By: #### 5 8410-2 ####[facility] LABORATORYCLIA [id number] [address] STATES OF [facility] MCHC (RBC) [Mass/Vol] 34.5 g/dL Normal 30.5-36.0 [facility] Comment on above: Order Comment: Speci men Type: BLOOD SPECIMENOrdering Facility: [facility] Address: [address] [place] [address] Performed By: #### 5 8410-2 ####[facility] LABORATORYCLIA [id number] [address] STATES [facility] MCV (RBC) [Entitic vol] 90.4 fL Normal 80.0-100.0 [facility] Comment on above: Order Comment: Speci men Type: BLOOD SPECIMENOrdering Facility: [facility] Address: [address] [place] [address] Performed By: #### 5 8410-2 ####[facility] LABORATORYCLIA [id number] [address] [place] Nucleated RBC (Bld) [#/Vol] 10*3/uL Normal <0.01 [facility] Comment on above: Order Comment: Speci men Type: BLOOD SPECIMENOrdering Facility: [facility] Address: [address] [place] [address] Performed By: #### 5 8410-2 ####[facility] LABORATORYCLIA [id number] [address] [place] Platelet mean volume (Bld) [Entitic vol] 12.0 fL Normal 9.0-12.7 [facility] Comment on above: Order Comment: Speci men Type: BLOOD SPECIMENOrdering Facility: [facility] Address: [address] [place] [address] Performed By: #### 5 8410-2 ####[facility] LABORATORYCLIA [id number] [address] Platelets (Bld) [#/Vol] 112 10*3/uL Low 150-400 [facility] Comment on above: Order Comment: Speci men Type: BLOOD SPECIMENOrdering Facility: [facility] Address: [address] [place] [address] Result Comment: No c lot detected. Performed By: #### 5 8410-2 ####[facility] LABORATORYCLIA [id number] [address] [place] RBC (Bld) [#/Vol] 2.82 10*6/uL Low 3.90-5.20 [facility] Comment on above: Order Comment: Speci men Type: BLOOD SPECIMENOrdering Facility: [facility] Address: [address] [place] [address] Performed By: #### 5 8410-2 ####[facility] LABORATORYCLIA [id number] [address] [place] WBC (Bld) [#/Vol] 1.92 10*3/uL Low 3.70-11.00 [facility] Comment on above: Order Comment: Speci men Type: BLOOD SPECIMENOrdering Facility: [facility] Address: [address] [place] [address] Performed By: #### 5 8410-2 ####[facility] LABORATORYCLIA [id number] [address] [place] CONSULTon 02-11-2025 CONSULT Normal [facility] CONSULT Normal [facility] CONSULT PROGon 02-11-2025 CONSULT PROG Normal [facility] CONSULT PROG Normal [facility] CT ABD/PEL W IVCONon 025 CT ABD/PEL W IVCON Normal [facility] ED NOTEon 02-11-2025 ED NOTE HNO ID: [id number] Author: AYAZ HOLLOWAY RN Service: ? Author Type: Registered Nurse Type: ED Notes Filed: 02/11/2025 00:53 Note Text: RN attempted to call floor RN twice. Normal [facility] HISTORY PHYSICALon HISTORY PHYSICAL Normal [facility] Hepatic function 2000 panelo n 02-11-2025 Albumin [Mass/Vol] 3.0 g/dL Low 3.9-4.9 [facility] Comment on above: Order Comment: Speci men Type: BLOOD SPECIMENOrdering Facility: [facility] Address: [address] [place] [address] Performed By: #### 2 4325-3, 3040-3, 92671-9 ####[facility] LABORATORYCLIA [id number] [address] [place] ALP [Catalytic activity/Vol] 80 U/L Normal 34-123 [facility] Comment on above: Order Comment: Speci men Type: BLOOD SPECIMENOrdering Facility: [facility] Address: [address] [place] [address] Performed By: #### 2 4325-3, 3040-3, 34417-9 ####[facility] LABORATORYCLIA [id number] [address] [place] ALT With P-5'-P [Catalytic activity/Vol] 19 U/L Normal 7-38 [facility] Comment on above: Order Comment: Speci men Type: BLOOD SPECIMENOrdering Facility: [facility] Address: [address] [place] [address] Performed By: #### 2 4325-3, 3040-3, 33751-1 ####[facility] LABORATORYCLIA [id number] [place] [address] [place] AST With P-5'-P [Catalytic activity/Vol] 19 U/L Normal 13-35 [facility] Comment on above: Order Comment: Speci men Type: BLOOD SPECIMENOrdering Facility: [facility] Address: [address] [place] [address] Performed By: #### 2 4325-3, 3040-3, 66232-2 ####[facility] LABORATORYCLIA [id number] [place] [address] [place] Bilirubin [Mass/Vol] 1.2 mg/dL Normal 0.2-1.3 [facility] Comment on above: Order Comment: Speci men Type: BLOOD SPECIMENOrdering Facility: [facility] Address: [address] [place] [address] Performed By: #### 2 4325-3, 0-3, 80268-5 ####[facility] LABORATORYCLIA [id number] [address] STATES OF [facility] Bilirubin.conjugated [Mass/Vol] 0.8 mg/dL High <0.3 [facility] Comment on above: Order Comment: Speci men Type: BLOOD SPECIMENOrdering Facility: [facility] Address: [address] [place] [address] Performed By: #### 2 4325-3, 3040-3, 08771-0 ####[facility] LABORATORYCLIA [id number] [place] [address] [place] Protein [Mass/Vol] 5.9 g/dL Low 6.3-8.0 [facility] Comment on above: Order Comment: Speci men Type: BLOOD SPECIMENOrdering Facility: [facility] Address: [address] [place] [address] Performed By: #### 2 4325-3, 3040-3, 62911-4 ####[facility] LABORATORYCLIA [id number] [address] [place] Lipase SerPl-cCncon 02-12-20 25 Lipase [Catalytic activity/Vol] 45 U/L Normal 16-61 [facility] Comment on above: Order Comment: Speci men Type: BLOOD SPECIMENOrdering Facility: [facility] Address: [address] [place] [address] Performed By: #### 2 4325-3, 3040-3, 18214-6 ####[facility] LABORATORYCLIA [id number] [address] OF [place] STAPHYLOCOCCUS AUREUS AND MR SA SCREEN, PCR, NASALon 02-11-2025 S. aureus and MRSA panel GUNNER+probe (Nose) Not detected Normal Not Detected [facility] Comment on above: Order Comment: Speci men Type: SWABOrdering Facility: [facility] Address: [address] [place] [address] Performed By: #### S APCR ####[facility][1]CLIA [id number] [address] Bacteria Bld Culton 02-11-20 25 Bacteria identified Cx Nom (Bld) CULTURE, BLOOD: No growth 5 days Normal [facility] Comment on above: Performed By: #### 6 00-7 ####[facility] LABORATORYCLIA [id number] [address] [place] CBC W Auto Differential pane l (Bld)on 02-10-2025 Basophils (Bld) [#/Vol] 0.00 10*3/uL Normal <0.11 [facility] Comment on above: Order Comment: Speci men Type: BLOOD SPECIMENOrdering Facility: [facility] Address: [address] [place] [address] Performed By: #### 5 7021-8, [id number] ####[facility] LABORATORYCLIA [id number] [address] Basophils/100 WBC (Bld) 0.0 % Normal [facility] Comment on above: Order Comment: Speci men Type: BLOOD SPECIMENOrdering Facility: [facility] Address: [address] [place] [address] Performed By: #### 5 7021-8, [id number] ####[facility] LABORATORYCLIA [id number] [address] Differential cell count method Nom (Bld) Manual Normal [facility] Comment on above: Order Comment: Speci men Type: BLOOD SPECIMENOrdering Facility: [facility] Address: [address] [place] [address] Performed By: #### 5 7021-8, [id number] ####[facility] LABORATORYCLIA [id number] [address] [place] Eosinophils (Bld) [#/Vol] 0.07 10*3/uL Normal <0.46 [facility] Comment on above: Order Comment: Speci men Type: BLOOD SPECIMENOrdering Facility: [facility] Address: [address] [place] [address] Performed By: #### 5 7021-8, [id number] ####[facility] LABORATORYCLIA [id number] [address] STATES [facility] Eosinophils/100 WBC (Bld) 3.0 % Normal [facility] Comment on above: Order Comment: Speci men Type: BLOOD SPECIMENOrdering Facility: [facility] Address: [address] [place] [address] Performed By: #### 5 7021-8, [id number] ####[facility] LABORATORYCLIA [id number] [address] [place] Erythrocyte distribution width (RBC) [Ratio] 13.5 % Normal 11.5-15.0 [facility] Comment on above: Order Comment: Speci men Type: BLOOD SPECIMENOrdering Facility: [facility] Address: [address] [place] [address] Performed By: #### 5 7021-8, [id number] ####[facility]ORATORYCLIA [id number] [place] [address] [place] Hematocrit (Bld) [Volume fraction] 30.0 % Low 36.0-46.0 [facility] Comment on above: Order Comment: Speci men Type: BLOOD SPECIMENOrdering Facility: [facility] Address: [address] [place] [address] Performed By: #### 5 7021-8, [id number] ####[facility] LABORATORYCLIA [id number] [place] [address] [place] Hemoglobin (Bld) [Mass/Vol] 9.9 g/dL Low 11.5-15.5 [facility] Comment on above: Order Comment: Speci men Type: BLOOD SPECIMENOrdering Facility: [facility] Address: [address] [place] [address] Performed By: #### 5 7021-8, [id number] ####[facility] LABORATORYCLIA [id number] [address] STATES [place] HYPOGRANULATED PMNS Present Normal [facility] Comment on above: Order Comment: Speci men Type: BLOOD SPECIMENOrdering Facility: [facility] Address: [address] [place] [address] Performed By: #### 5 7021-8, [id number] ####[facility] LABORATORYCLIA [id number] [place] [address] [place] Lymphocytes (Bld) [#/Vol] 0.41 10*3/uL Low 1.00-4.00 [facility] Comment on above: Order Comment: Speci men Type: BLOOD SPECIMENOrdering Facility: [facility] Address: [address] [place] [address] Performed By: #### 5 7021-8, [id number] ####[facility] LABORATORYCLIA [id number] [address] [place] Lymphocytes/100 WBC (Bld) 16.0 % Normal [facility] Comment on above: Order Comment: Speci men Type: BLOOD SPECIMENOrdering Facility: [facility] Address: [address] [place] [address] Performed By: #### 5 7021-8, [id number] ####[facility] LABORATORYCLIA [id number] [address] MCH (RBC) [Entitic mass] 30.6 pg Normal 26.0-34.0 [facility] Comment on above: Order Comment: Speci men Type: BLOOD SPECIMENOrdering Facility: [facility] Address: [address] [place] [address] Performed By: #### 5 7021-8, [id number] ####[facility] LABORATORYCLIA [id number] [address] MCHC (RBC) [Mass/Vol] 33.0 g/dL Normal 30.5-36.0 [facility] Comment on above: Order Comment: Speci men Type: BLOOD SPECIMENOrdering Facility: [facility] Address: [address] [place] [address] Performed By: #### 5 7021-8, [id number] ####[facility] LABORATORYCLIA [id number] [address] MCV (RBC) [Entitic vol] 92.6 fL Normal 80.0-100.0 [facility] Comment on above: Order Comment: Speci men Type: BLOOD SPECIMENOrdering Facility: [facility] Address: [address] [place] [address] Performed By: #### 5 7021-8, [id number] ####[facility] LABORATORYCLIA [id number] [address] Metamyelocytes/100 WBC (Bld) 2.0 % Normal [facility] Comment on above: Order Comment: Speci men Type: BLOOD SPECIMENOrdering Facility: [facility] Address: [address] [place] [address] Performed By: #### 5 7021-8, [id number] ####[facility] LABORATORYCLIA [id number] [place] [address] [place] Monocytes (Bld) [#/Vol] 0.09 10*3/uL Normal <0.87 [facility] Comment on above: Order Comment: Speci men Type: BLOOD SPECIMENOrdering Facility: [facility] Address: [address] [place] [address] Performed By: #### 5 7021-8, [id number] ####[facility] LABORATORYCLIA [id number] [place] [address] [place] Monocytes/100 WBC (Bld) 4.0 % Normal [facility] Comment on above: Order Comment: Speci men Type: BLOOD SPECIMENOrdering Facility: [facility] Address: [address] [place] [address] Performed By: #### 5 7021-8, [id number] ####[facility] LABORATORYCLIA [id number] [place] [address] [place] Neutrophils (Bld) [#/Vol] 1.57 10*3/uL Normal 1.45-7.50 [facility] Comment on above: Order Comment: Speci men Type: BLOOD SPECIMENOrdering Facility: [facility] Address: [address] [place] [address] Performed By: #### 5 7021-8, [id number] ####[facility] LABORATORYCLIA [id number] [address] [place] Neutrophils/100 WBC (Bld) 72.0 % Normal [facility] Comment on above: Order Comment: Speci men Type: BLOOD SPECIMENOrdering Facility: [facility] Address: [address] [place] [address] Performed By: #### 5 7021-8, [id number] ####[facility] LABORATORYCLIA [id number] [place] [address] [place] Nucleated RBC (Bld) [#/Vol] 10*3/uL Normal <0.01 [facility] Comment on above: Order Comment: Speci men Type: BLOOD SPECIMENOrdering Facility: [facility] Address: [address] [place] [address] Performed By: #### 5 7021-8, [id number] ####[facility] LABORATORYCLIA [id number] [address] Nucleated RBC/100 WBC (Bld) [Ratio] 0.0 /100 WBC Normal [facility] Comment on above: Order Comment: Speci men Type: BLOOD SPECIMENOrdering Facility: [facility] Address: [address] [place] [address] Performed By: #### 5 7021-8, [id number] ####[facility] LABORATORYCLIA [id number] [address] Ovalocytes LM Ql (Bld) Few Normal [facility] Comment on above: Order Comment: Speci men Type: BLOOD SPECIMENOrdering Facility: [facility] Address: [address] [place] [address] Performed By: #### 5 7021-8, [id number] ####[facility] LABORATORYCLIA [id number] [address] [place] Platelet mean volume (Bld) [Entitic vol] 12.1 fL Normal 9.0-12.7 [facility] Comment on above: Order Comment: Speci men Type: BLOOD SPECIMENOrdering Facility: [facility] Address: [address] [place] [address] Performed By: #### 5 7021-8, [id number] ####[facility] LABORATORYCLIA [id number] [address] [place] Platelets (Bld) [#/Vol] 126 10*3/uL Low 150-400 [facility] Comment on above: Order Comment: Speci men Type: BLOOD SPECIMENOrdering Facility: [facility] Address: [address] [place] [address] Result Comment: No c lot detected. Performed By: #### 5 7021-8, [id number] ####[facility] LABORATORYCLIA [id number] [address] [place] Platelets Estimate (Bld) [#/Vol] Decreased Normal [facility] Comment on above: Order Comment: Speci men Type: BLOOD SPECIMENOrdering Facility: [facility] Address: [address] [place] [address] Performed By: #### 5 7021-8, [id number] ####[facility] LABORATORYCLIA [id number] [address] OF [facility] Polychromasia LM Ql (Bld) Slight Normal [facility] Comment on above: Order Comment: Speci men Type: BLOOD SPECIMENOrdering Facility: [facility] Address: [address] [place] [address] Performed By: #### 5 7021-8, [id number] ####[facility] LABORATORYCLIA [id number] [place] [address] [place] [facility] RBC (Bld) [#/Vol] 3.24 10*6/uL Low 3.90-5.20 [facility] Comment on above: Order Comment: Speci men Type: BLOOD SPECIMENOrdering Facility: [facility] Address: [address] [place] [address] Performed By: #### 5 7021-8, [id number] ####[facility] LABORATORYCLIA [id number] [address] [place] RBC FRAGMENTS Few Abnormal None Seen [facility] Comment on above: Order Comment: Speci men Type: BLOOD SPECIMENOrdering Facility: [facility] Address: [address] [place] [address] Performed By: #### 5 7021-8, [id number] ####[facility] LABORATORYCLIA [id number] [address] RED CELL MORPH Reviewed: see result s of individual morphologies Normal [facility] Comment on above: Order Comment: Speci men Type: BLOOD SPECIMENOrdering Facility: [facility] Address: [address] [place] [address] Performed By: #### 5 7021-8, [id number] ####[facility] LABORATORYCLIA [id number] [address] [place] Present Normal [facility] Comment on above: Order Comment: Speci men Type: BLOOD SPECIMENOrdering Facility: [facility] Address: [address] [place] [address] Performed By: #### 5 7021-8, [id number] ####[facility] LABORATORYCLIA [id number] [address] [place] Variant lymphocytes/100 WBC (Bld) 3.0 % Normal [facility] Comment on above: Order Comment: Speci men Type: BLOOD SPECIMENOrdering Facility: [facility] Address: [address] [place] [address] Performed By: #### 5 7021-8, [id number] ####[facility] LABORATORYCLIA [id number] [address] WBC (Bld) [#/Vol] 2.18 10*3/uL Low 3.70-11.00 [facility] Comment on above: Order Comment: Speci men Type: BLOOD SPECIMENOrdering Facility: [facility] Address: [address] [place] [address] Performed By: #### 5 7021-8, [id number] ####[facility] LABORATORYCLIA [id number] [address] Comprehensive metabolic 2000 panelon 02-10-2025 Albumin [Mass/Vol] 3.5 g/dL Low 3.9-4.9 [facility] Comment on above: Order Comment: Speci men Type: BLOOD SPECIMENOrdering Facility: [facility] Address: [address] [place] [address] Performed By: #### 2 4323-8 ####[facility] LABORATORYCLIA [id number] [address] [place] ALP [Catalytic activity/Vol] 94 U/L Normal 34-123 [facility] Comment on above: Order Comment: Speci men Type: BLOOD SPECIMENOrdering Facility: [facility] Address: [address] [place] [address] Performed By: #### 2 4323-8 ####[facility] LABORATORYCLIA [id number] [address] [place] ALT With P-5'-P [Catalytic activity/Vol] Normal [facility] Comment on above: Order Comment: Speci men Type: BLOOD SPECIMENOrdering Facility: [facility] Address: [address] [place] [address] Result Comment: Unab le to assay due to interference from hemolysis. Suggest reorder as clinically indicated. Performed By: #### 2 4323-8 ####[facility] LABORATORYCLIA [id number] [address] STATES OF [facility] Anion gap [Moles/Vol] 15 mmol/L Normal 8-15 [facility] Comment on above: Order Comment: Speci men Type: BLOOD SPECIMENOrdering Facility: [facility] Address: [address] [place] [address] Performed By: #### 2 4323-8 ####[facility] LABORATORYCLIA [id number] [address] [place] With P-5'-P [Catalytic activity/Vol] Normal [facility] Comment on above: Order Comment: Speci men Type: BLOOD SPECIMENOrdering Facility: [facility] Address: [address] [place] [address] Result Comment: Unab le to assay due to interference from hemolysis. Suggest reorder as clinically indicated. Performed By: #### 2 4323-8 ####[facility] LABORATORYCLIA [id number] [address] [place] OF [facility] Bilirubin [Mass/Vol] 1.2 mg/dL Normal 0.2-1.3 [facility] Comment on above: Order Comment: Speci men Type: BLOOD SPECIMENOrdering Facility: [facility] Address: [address] [place] [address] Performed By: #### 2 4323-8 ####[facility] LABORATORYCLIA [id number] [address] [place] Calcium [Mass/Vol] 8.7 mg/dL Normal 8.5-10.2 [facility] Comment on above: Order Comment: Speci men Type: BLOOD SPECIMENOrdering Facility: [facility] Address: [address] [place] [address] Performed By: #### 2 4323-8 ####[facility] LABORATORYCLIA [id number] [place] [address] [place] Chloride [Moles/Vol] 92 mmol/L Low 98-107 [facility] Comment on above: Order Comment: Speci men Type: BLOOD SPECIMENOrdering Facility: [facility] Address: [address] [place] [address] Performed By: #### 2 4323-8 ####[facility] LABORATORYCLIA [id number] [address] [place] CO2 [Moles/Vol] 16 mmol/L Low 22-30 [facility] Comment on above: Order Comment: Speci men Type: BLOOD SPECIMENOrdering Facility: [facility] Address: [address] [place] [address] Performed By: #### 2 4323-8 ####[facility] LABORATORYCLIA [id number] [address] [place] Creatinine [Mass/Vol] 0.55 mg/dL Low 0.58-0.96 [facility] Comment on above: Order Comment: Speci men Type: BLOOD SPECIMENOrdering Facility: [facility] Address: [address] [place] [address] Performed By: #### 2 4323-8 ####[facility] LABORATORYCLIA [id number] [address] Creatinine and Glomerular filtration rate.predicted panel (S/P/Bld) 91 mL/min/1.73m??? Normal >=60 [facility] Comment on above: Order Comment: Speci men Type: BLOOD SPECIMENOrdering Facility: [facility] Address: [address] [place] [address] Result Comment: Kya mated Glomerular Filtration Rate (eGFR) is calculated using the 2020 CKD-EPI creatinine equation. This equation utilizes serum creatinine, sex, and age as parameters. The creatinine assay has traceable calibration to isotope dilution-mass spectrometry. Refer to KDIGO guidelines for clinical interpretation. In patients with unstable renal function, e.g. those with acute kidney injury, the eGFR may not accurately reflect actual GFR. Performed By: #### 2 4323-8 ####[facility] LABORATORYCLIA [id number] [place] [address] [place] Glucose [Mass/Vol] 217 mg/dL High 74-99 [facility] Comment on above: Order Comment: Dayron stinson Type: BLOOD SPECIMENOrdering Facility: [facility] Address: [address] [place] [address] Result Comment: The [place] Diabetes Association (ADA) provides guidance for cutoff values for fasting glucose and random glucose. The ADA defines fasting as no caloric intake for at least 8 hours. Fasting plasma glucose results between 100 to 125 mg/dL indicate increased risk for diabetes (prediabetes).Fasting plasma glucose results greater than or equal to 126 mg/dL meet the criteria for diagnosis of diabetes. In the absence of unequivocal hyperglycemia, results should be confirmed by repeat testing. In a patient with classic symptoms of hyperglycemia or hyperglycemic crisis, random plasma glucose results greater than or equal to 200 mg/dL meet the criteria for diagnosis of diabetes.Reference: Standards of Medical Care in Diabetes 2016, [place] [employer] Association. Diabetes Care. 2016.39(Suppl 1). Performed By: #### 2 4323-8 ####[facility] LABORATORYCLIA [id number] [place] [address] [place] Potassium [Moles/Vol] Normal [facility] Comment on above: Order Comment: aDyron stinson Type: BLOOD SPECIMENOrdering Facility: [facility] Address: [address] [place] [address] Result Comment: Unab le to assay due to interference from hemolysis. Suggest reorder as clinically indicated. Performed By: #### 2 4323-8 ####[facility] LABORATORYCLIA [id number] [place] [address] [place] Protein [Mass/Vol] 6.5 g/dL Normal 6.3-8.0 [facility] Comment on above: Order Comment: Dayron stinson Type: BLOOD SPECIMENOrdering Facility: [facility] Address: [address] [place], [place] [address] Performed By: #### 2 4323-8 ####[facility] LABORATORYCLIA [id number] [place] [id number] [place] [facility] Sodium [Moles/Vol] 123 mmol/L Low 136-144 [facility] Comment on above: Order Comment: Speci men Type: BLOOD SPECIMENOrdering Facility: [facility] Address: [address] [place] [address] Performed By: #### 2 4323-8 ####[facility] LABORATORYCLIA [id number] [place] [id number] [place] Urea nitrogen [Mass/Vol] 9 mg/dL Normal 7-21 [facility] Comment on above: Order Comment: Speci men Type: BLOOD SPECIMENOrdering Facility: [facility] Address: [address] [place] [address] Performed By: #### 2 4323-8 ####[facility] LABORATORYCLIA [id number] [place] [id number] [place] ECG COMPLETEon 02-10-2025 ECG COMPLETE Normal [facility] ED NOTEon 02-10-2025 ED NOTE HNO ID: [id number] Author: AYAZ HOLLOWAY RN Service: ? Author Type: Registered Nurse Type: ED Notes Filed: 02/11/2025 00:44 Note Text: MD Weber at bedside when temp of 99.9f was taken Normal [facility] ED NOTE HNO ID: [id number] Author: AYAZ HOLLOWAY RN Service: ? Author Type: Registered Nurse Type: ED Notes Filed: 02/10/2025 20:41 Note Text: notified of need for US IV due to inability to draw blood. Normal [facility] ED NOTE HNO ID: [id number] Author: GARIMA TORO RN Service: ? Author Type: Registered Nurse Type: ED Notes Filed: 02/10/2025 20:27 Note Text: Bed: 20-ED Expected date: Expected time: Means of arrival: Comments: Triage Normal [facility] ED NOTE HNO ID: [id number] Author: JAYLEEN BOB RN Service: Emergency Medicine Author Type: Registered Nurse Type: ED Notes Filed: 02/10/2025 19:35 Note Text: Patient placed in the internal waiting room Normal [facility] ED NOTE HNO ID: [id number] Author: JAYLEEN BOB RN Service: Emergency Medicine Author Type: Registered Nurse Type: ED Notes Filed: 02/10/2025 19:24 Note Text: ED Xray notified patient ready for ordered radiology in the internal waiting room Normal [facility] ED PROV NOTEon 02-10-2025 ED PROV NOTE Normal [facility] ED PROV NOTE Normal [facility] ED Triage Noteon 02-10-2025 ED Triage Note Normal [facility] PATHOLOGIST INTERPRETATION C BC AND DIFFERENTIAL (LAB REFLEX ORDER-NO BILL)on 02-10-2025 Car Jockey review Jimenez (Unsp spec) [Interp] Reviewed by Diya Albarran MD [facility] Comment on above: Order Comment: Speci men Type: BLOOD SPECIMENOrdering Facility: [facility] Address: [address] [place] [address] Performed By: #### 5 7021-8, [id number] ####[facility] LABORATORYCLIA [id number] [address] STAFF REVIEW, CBCDIF Normal [facility] Comment on above: Order Comment: Speci men Type: BLOOD SPECIMENOrdering Facility: [facility] Address: [address] [place] [address] Performed By: #### 5 7021-8, [id number] ####[facility] LABORATORYCLIA [id number] [address] POTASSIUMon 02-10-2025 Potassium [Moles/Vol] 4.4 mmol/L Normal 3.7-5.1 [facility] Comment on above: Order Comment: Speci men Type: BLOOD SPECIMENOrdering Facility: [facility] Address: [address] [place] [address] Performed By: #### K 1 ####[facility] LABORATORYCLIA [id number] [address] Urinalysis complete panel (U )on 02-10-2025 Bilirubin Ql (U) Negative Normal Negative [facility] Comment on above: Order Comment: Speci men Type: URINE SPECIMENOrdering Facility: [facility] Address: [address] [place] [address] Performed By: #### 2 4356-8 ####[facility] LABORATORYCLIA [id number] [address] [place] Clarity (Unsp spec) Clear Normal Clear [facility] Comment on above: Order Comment: Speci men Type: URINE SPECIMENOrdering Facility: [facility] Address: [address] [place] [address] Performed By: #### 2 4356-8 ####[facility] LABORATORYCLIA [id number] [address] Color (U) Yellow Normal Yellow [facility] Comment on above: Order Comment: Speci men Type: URINE SPECIMENOrdering Facility: [facility] Address: [address] [place] [address] Performed By: #### 2 4356-8 ####[facility] LABORATORYCLIA [id number] [address] Epithelial cells LM.HPF (Urine sed) [#/Area] Few Normal [facility] Comment on above: Order Comment: Speci men Type: URINE SPECIMENOrdering Facility: [facility] Address: [address] [place] [address] Performed By: #### 2 4356-8 ####[facility] LABORATORYCLIA [id number] [address] Glucose Test strip (U) [Mass/Vol] 2+ Abnormal Negative [facility] Comment on above: Order Comment: Speci men Type: URINE SPECIMENOrdering Facility: [facility] Address: [address] [place] [address] Performed By: #### 2 4356-8 ####[facility] LABORATORYCLIA [id number] [address] [place] Hemoglobin Ql (U) Negative Normal Negative [facility] Comment on above: Order Comment: Speci men Type: URINE SPECIMENOrdering Facility: [facility] Address: [address] [place] [address] Performed By: #### 2 4356-8 ####[facility] LABORATORYCLIA [id number] [place] [address] [place] Ketones Ql (U) Negative Normal Negative [facility] Comment on above: Order Comment: Speci men Type: URINE SPECIMENOrdering Facility: [facility] Address: [address] [place] [address] Performed By: #### 2 4356-8 ####[facility] LABORATORYCLIA [id number] [address] STATES [facility] Leukocyte esterase Test strip Ql (U) Negative Normal Negative [facility] Comment on above: Order Comment: Speci men Type: URINE SPECIMENOrdering Facility: [facility] Address: [address] [place] [address] Performed By: #### 2 4356-8 ####[facility] LABORATORYCLIA [id number] [address] [place] Nitrite Ql (U) Negative Normal Negative [facility] Comment on above: Order Comment: Speci men Type: URINE SPECIMENOrdering Facility: [facility] Address: [address] [place] [address] Performed By: #### 2 4356-8 ####[facility] LABORATORYCLIA [id number] [address] [place] pH (U) 7.0 [pH] Normal 5.0-8.0 [facility] Comment on above: Order Comment: Speci men Type: URINE SPECIMENOrdering Facility: [facility] Address: [address] [place] [address] Performed By: #### 2 4356-8 ####[facility] LABORATORYCLIA [id number] [place] [address] [place] Protein (U) [Mass/Vol] 1+ Abnormal Negative [facility] Comment on above: Order Comment: Speci men Type: URINE SPECIMENOrdering Facility: [facility] Address: [address] [place] [address] Performed By: #### 2 4356-8 ####[facility] LABORATORYCLIA [id number] [address] [place] [facility] RBC LM.HPF (Urine sed) [#/Area] 3-5 /HPF Abnormal 0-3 /HPF [facility] Comment on above: Order Comment: Speci men Type: URINE SPECIMENOrdering Facility: [facility] Address: [address] [place] [address] Performed By: #### 2 4356-8 ####[facility][1]CLIA [id number] [address] Specific gravity (U) [Rel density] 1.010 Normal 1.005-1.030 [facility] Comment on above: Order Comment: Speci men Type: URINE SPECIMENOrdering Facility: [facility] Address: [address] [place] [address] Performed By: #### 2 4356-8 ####[facility] LABORATORYCLIA [id number] [address] Urobilinogen Ql (U) 0.2 EU/dL Normal 0.2 EU/d L, 1.0 EU/dL [facility] Comment on above: Order Comment: Speci men Type: URINE SPECIMENOrdering Facility: [facility] Address: [address] [place] [address] Performed By: #### 2 4356-8 ####[facility] LABORATORYCLIA [id number] [address] WBC LM.HPF (Urine sed) [#/Area] 0-5 /HPF Normal 0-5 /HPF [facility] Comment on above: Order Comment: Speci men Type: URINE SPECIMENOrdering Facility: [facility] Address: [address] [place] [address] Performed By: #### 2 4356-8 ####[facility] LABORATORYCLIA [id number] [place] [address] [place] XR CHEST 2V FRONTAL/LATon XR CHEST 2V FRONTAL/LAT Normal [facility] CNPNon 02-09-2025 CNPN Telephone (LUKE) -- TELMA TINEO ([id number]) 1940 F Date Time Provider Department 02/09/25 MARIA ISABEL SILVERIO During your visit today, we recorded the following information about you: Maria Isabel Silverio RN 02/09/2025 12:16 PM Signed [facility] Care Coordination FOLLOW-UP NOTE Patient identified by name and date of . YES Spoke to Timothy Summary: (Reason for follow-up) Call to Timothy for update on cough/congestions as he reported earlier today in another note that this is not getting better. Patient is finishing her Zpack today but cough is not better and has a lot of congestion. Cough sometime productive with white, creamy, yellowish sputum She is not using anything OTC. Timothy has been giving her warm tea, sometime with honey. She can't drink anything cold as that triggers her to cough more. Denies fever/chills, blood sugars ok, BP ok, Eating ok, last BM today. Denies h/a but states head feels heavy, denies sore throat or mouth. Instructed rest, fluids, Robitussin and Mucinex. He states she drinks lots of water. Instructed to call with any changes, worsening symptoms, lori. fever/chills. He is aware that I will update Dr. Yusuf and call back if any further instructions at this time. Patient verbalized when to seek Medical Attention and an understanding of after- hours phone number and process: Yes Care Coordination Plan: Will update Dr. Yusuf and call back if any further instructions. Maria Isabel Silverio RN February 09, 2025 Maria Isabel Silverio RN 02/09/2025 1:[address] Yusuf updated and no further instructions. Elaina Silverio RN Allergies As of Date: 02/09/2025 Noted Allergy Reaction PENICILLINS 09/14/2021 10 - Anaphylaxis TETRACYCLINE 09/14/2021 2 - Rash TRAMADOL 07/01/2024 5 - Intolerance Comments: Trembling Date Reviewed: 02/05/2025 Reviewed by: Latrice Melgoza PA-C - Fully Assessed Reason for Visit: Care Coordination [3491] Cmt: Follow up Note Prescriptions as of 02/09/2025 - azithromycin (ZITHROMAX) 250 mg tablet Take 2 tablets by mouth once daily for 1 day, THEN 1 tablet once daily for 4 days. - insulin NPH-insulin regular 70/30 (NOVOLIN 70/30 U-100 INSULIN) 100 unit/mL suspension Inject 17 Units subcutaneously two times a day with meals. With breakfast and dinner - Lancets Test Four times a day. Insulin Dep? Yes uncontrolled dm - blood sugar diagnostic (BLOOD GLUCOSE TEST) test strip Test 4 times daily, Insulin Dep? Yes dm 2 uncontrolled. - ondansetron (ZOFRAN) 8 mg tablet Take 1 tablet by mouth every 8 hours as needed. - sucralfate (CARAFATE) 1 gram tablet Take 1 tablet by mouth four times daily. - Insulin Syringe-Needle U-100 0.5 mL 31 gauge x 5/16 1 Each two times a day. - blood sugar diagnostic test strip Use with blood glucose test 2 times daily, Insulin Dep? Yes - Lancets Use with blood glucose test 2 times daily. Insulin Dep? Yes - alcohol swabs Use with blood glucose test 2 times daily. Insulin Dep? Yes - glucose 4 gram chewable tablet Take 4 tablets by mouth as needed for low blood sugar. - Blood-Glucose Meter,Continuous (FREESTYLE TOLU 3 READER) [facility] Use to check blood sugar at least four (4) times daily. - Blood-Glucose Sensor (FREESTYLE TOLU 3 PLUS SENSOR) benjamin Apply new sensor every fifteen (15) days to upper arm. - metoprolol tartrate, short acting, (LOPRESSOR) 50 mg tablet Take 1.5 tablets by mouth two times a day. - losartan (COZAAR) 100 mg tablet Take 1 tablet by mouth once daily. - pantoprazole DR (PROTONIX) 40 mg tablet Take 1 tablet by mouth two times a day. - PEG 400-propylene glycol (SYSTANE ULTRA) 0.4-0.3 % ophthalmic solution Use 1 Drop in both eyes three times a day. - atorvastatin (LIPITOR) 20 mg tablet Take 1 tablet by mouth once daily. - ELIQUIS 5 mg tab(s) Take 5 mg by mouth two times a day. - amLODIPine (NORVASC) 10 mg tablet Take 10 mg by mouth once daily. - Blood Pressure Test Kit-Large (Mapidy ARM BP MONITOR) 1 Each once daily. 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 Normal [facility] Lenin 02-08-2025 IMMANUEL Telephone (HEMAWS) -- TELMA TINEO ([id number]) 1940 F Date Time Provider Department 02/08/25 JUAN MIGUEL YUSUF During your visit today, we recorded the following information about you: Azra Zuniga LPN 02/08/2025 1:58 PM Addendum 9th . Dental contacted office states pt. Is scheduled for tooth Extraction on 02/15 @ 8:[address] Yusuf made aware. PETE Ramirez Cathleen, RN 02/09/2025 1:12 PM Signed Spoke with patient and son, Timothy. They will be in on Saturday for treatment with labs. Elaina Silverio RN Allergies As of Date: 02/08/2025 Noted Allergy Reaction PENICILLINS 09/14/2021 10 - Anaphylaxis TETRACYCLINE 09/14/2021 2 - Rash TRAMADOL 07/01/2024 5 - Intolerance Comments: Trembling Date Reviewed: 02/05/2025 Reviewed by: Latrice Melgoza PA-C - Fully Assessed Reason for Visit: Dental Problem [31] Prescriptions as of 02/09/2025 - azithromycin (ZITHROMAX) 250 mg tablet Take 2 tablets by mouth once daily for 1 day, THEN 1 tablet once daily for 4 days. - insulin NPH-insulin regular 70/30 (NOVOLIN 70/30 U-100 INSULIN) 100 unit/mL suspension Inject 17 Units subcutaneously two times a day with meals. With breakfast and dinner - Lancets Test Four times a day. Insulin Dep? Yes uncontrolled dm - blood sugar diagnostic (BLOOD GLUCOSE TEST) test strip Test 4 times daily, Insulin Dep? Yes dm 2 uncontrolled. - ondansetron (ZOFRAN) 8 mg tablet Take 1 tablet by mouth every 8 hours as needed. - sucralfate (CARAFATE) 1 gram tablet Take 1 tablet by mouth four times daily. - Insulin Syringe-Needle U-100 0.5 mL 31 gauge x 5/16 1 Each two times a day. - blood sugar diagnostic test strip Use with blood glucose test 2 times daily, Insulin Dep? Yes - Lancets Use with blood glucose test 2 times daily. Insulin Dep? Yes - alcohol swabs Use with blood glucose test 2 times daily. Insulin Dep? Yes - glucose 4 gram chewable tablet Take 4 tablets by mouth as needed for low blood sugar. - Blood-Glucose Meter,Continuous (FREESTYLE TOLU 3 READER) misc Use to check blood sugar at least four (4) times daily. - Blood-Glucose Sensor (FREESTYLE TOLU 3 PLUS SENSOR) benjamin Apply new sensor every fifteen (15) days to upper arm. - metoprolol tartrate, short acting, (LOPRESSOR) 50 mg tablet Take 1.5 tablets by mouth two times a day. - losartan (COZAAR) 100 mg tablet Take 1 tablet by mouth once daily. - pantoprazole DR (PROTONIX) 40 mg tablet Take 1 tablet by mouth two times a day. - PEG 400-propylene glycol (SYSTANE ULTRA) 0.4-0.3 % ophthalmic solution Use 1 Drop in both eyes three times a day. - atorvastatin (LIPITOR) 20 mg tablet Take 1 tablet by mouth once daily. - ELIQUIS 5 mg tab(s) Take 5 mg by mouth two times a day. - amLODIPine (NORVASC) 10 mg tablet Take 10 mg by mouth once daily. - Blood Pressure Test Kit-Large (Mapidy ARM BP MONITOR) 1 Each once daily. 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/2021 History of uterine cancer [Z85.42] 09/14/2021 Bronchiectasis without complication (HCC) [J47.*11/22/2022 Atrial fibrillation, unspecified type (HCC) [I4*04/15/2023 Candidiasis of vagina [B37.31] 05/20/2023 05/20/2023 Diagnosed: 05/20/2023 Chest pain [R07.9] 03/12/2023 07/01/2024 Diagnosed: 05/20/2023 Hyperlipidemia [E78.5] 05/20/2023 Diagnosed: 05/20/2023 Impaired cognition [R41.89] 05/20/2023 Diagnosed: 05/20/2023 assisted current use of anticoagulant therapy *05/20/2023 Diagnosed: 05/20/2023 Neck pain [M54.2] 05/20/2023 05/20/2023 Diagnosed: 05/20/2023 Cerebrovascular accident (CVA) (HCC) [I63.9] 05/20/2023 Diagnosed: 05/20/2023 Jaundice [R17] 01/15/2025 Pancreatic mass [K86.89] 01/15/2025 Type 2 diabetes mellitus with hyperglycemia (HC*01/18/2025 Hyperglycemia [R73.9] 01/18/2025 Elevated hemoglobin A1c [R73.09] 01/18/2025 Obstructive jaundice [K83.1] 01/18/2025 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) [C*01/21/2025 Encounter Status:Closed by [facility][id number][facility] 1940 F Date Time Provider Department 02/08/25 MARIA ISABEL SILVERIO During your visit today, we recorded the following information about you: Maria Isabel Silverio, MAGNUS 02/08/2025 12:39 PM Signed [facility] Care Coordination FOLLOW-UP NOTE Patient identified by name and date of . YES Spoke to patient and son Timothy Summary: (Reason for follow-up) Follow up on patient, was given a Zpack on Saturday. Timothy states patient is feeling better, cough is better. States she had a rough day yesterday but she was that way on Day 3 after her first treatment. States she is better today. Main symptoms yesterday are blood sugar regulation after steroids with treatment but they are better today, she feels weak and tired with all over aches and that seems better today too. Denies fever, new concerns. Patient verbalized when to seek Medical Attention and an understanding of after- hours phone number and process: Yes Care Coordination Plan: No further follow up needed at this time Maria Isabel Silverio RN February 08, 2025 Ryanne Ann LPN 02/09/2025 11:19 AM Signed Patient's son contacted the office asking for something for the cough and chest congestion, antibiotic not doing much; cough worse today. Denies fever. Ryanne Ann LPN Allergies As of Date: 02/08/2025 Noted Allergy Reaction PENICILLINS 09/14/2021 10 - Anaphylaxis TETRACYCLINE 09/14/2021 2 - Rash TRAMADOL 07/01/2024 5 - Intolerance Comments: Trembling Date Reviewed: 02/05/2025 Reviewed by: Latrice Melgoza PA-C - Fully Assessed Reason for Visit: Care Coordination [6928] Cmt: Follow Up Note Prescriptions as of 02/09/2025 - azithromycin (ZITHROMAX) 250 mg tablet Take 2 tablets by mouth once daily for 1 day, THEN 1 tablet once daily for 4 days. - insulin NPH-insulin regular 70/30 (NOVOLIN 70/30 U-100 INSULIN) 100 unit/mL suspension Inject 17 Units subcutaneously two times a day with meals. With breakfast and dinner - Lancets Test Four times a day. Insulin Dep? Yes uncontrolled dm - blood sugar diagnostic (BLOOD GLUCOSE TEST) test strip Test 4 times daily, Insulin Dep? Yes dm 2 uncontrolled. - ondansetron (ZOFRAN) 8 mg tablet Take 1 tablet by mouth every 8 hours as needed. - sucralfate (CARAFATE) 1 gram tablet Take 1 tablet by mouth four times daily. - Insulin Syringe-Needle U-100 0.5 mL 31 gauge x 5/16 1 Each two times a day. - blood sugar diagnostic test strip Use with blood glucose test 2 times daily, Insulin Dep? Yes - Lancets Use with blood glucose test 2 times daily. Insulin Dep? Yes - alcohol swabs Use with blood glucose test 2 times daily. Insulin Dep? Yes - glucose 4 gram chewable tablet Take 4 tablets by mouth as needed for low blood sugar. - Blood-Glucose Meter,Continuous (FREESTYLE TOLU 3 READER) [facility] Use to check blood sugar at least four (4) times daily. - Blood-Glucose Sensor (FREESTYLE TOLU 3 PLUS SENSOR) benjamin Apply new sensor every fifteen (15) days to upper arm. - metoprolol tartrate, short acting, (LOPRESSOR) 50 mg tablet Take 1.5 tablets by mouth two times a day. - losartan (COZAAR) 100 mg tablet Take 1 tablet by mouth once daily. - pantoprazole DR (PROTONIX) 40 mg tablet Take 1 tablet by mouth two times a day. - PEG 400-propylene glycol (SYSTANE ULTRA) 0.4-0.3 % ophthalmic solution Use 1 Drop in both eyes three times a day. - atorvastatin (LIPITOR) 20 mg tablet Take 1 tablet by mouth once daily. - ELIQUIS 5 mg tab(s) Take 5 mg by mouth two times a day. - amLODIPine (NORVASC) 10 mg tablet Take 10 mg by mouth once daily. - Blood Pressure Test Kit-Large (Mapidy ARM BP MONITOR) 1 Each once daily. 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/2021 History of uterine cancer [Z85.42] 09/14/2021 Bronchiectasis without complication (HCC) [J47.*11/22/2022 Atrial fibrillation, unspecified type (HCC) [I4*04/15/2023 Candidiasis of vagina [B37.31] 05/20/2023 05/20/2023 Diagnosed: 05/20/2023 Chest pain [R07.9] 03/12/2023 07/01/2024 Diagnosed: 05/20/2023 Hyperlipidemia [E78.5] 05/20/2023 Diagnosed: 05/20/2023 Impaired cognition [R41.89] 05/20/2023 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 Normal [facility] CBC W Auto Differential pane l (Bld)on 02-05-2025 Basophils (Bld) [#/Vol] 10*3/uL Normal <0.11 [facility] Comment on above: Order Comment: Speci men Type: BLOOD SPECIMEN Ordering Facility: [facility] Address: [address] [place] [address] Performed By: #### 5 7021-8 #### [facility] CLIA [id number] [address] [place] [address] [place] Basophils/100 WBC (Bld) 0.5 % Normal [facility] Comment on above: Order Comment: Speci men Type: BLOOD SPECIMEN Ordering Facility: [facility] Address: [address] [place] [address] Performed By: #### 5 7021-8 #### [facility] CLIA [id number] [address] [place] [address] [place] Differential cell count method Nom (Bld) Auto Normal [facility] Comment on above: Order Comment: Speci men Type: BLOOD SPECIMEN Ordering Facility: [facility] Address: [address] [place] [address] Performed By: #### 5 7021-8 #### [facility] CLIA [id number] [address] [place] [address] [place] Eosinophils (Bld) [#/Vol] 0.10 10*3/uL Normal <0.46 [facility] Comment on above: Order Comment: Speci men Type: BLOOD SPECIMEN Ordering Facility: [facility] Address: [address] [place] [address] Performed By: #### 5 7021-8 #### [facility] CLIA [id number] [address] [place] [address] [place] Eosinophils/100 WBC (Bld) 2.4 % Normal [facility] Comment on above: Order Comment: Speci men Type: BLOOD SPECIMEN Ordering Facility: [facility] Address: [address] [place] [address] Performed By: #### 5 7021-8 #### [facility] CLIA [id number] [address] [place] [address] [place] Erythrocyte distribution width (RBC) [Ratio] 14.2 % Normal 11.5-15.0 [facility] Comment on above: Order Comment: Speci men Type: BLOOD SPECIMEN Ordering Facility: [facility] Address: [address] [place] [address] Performed By: #### 5 7021-8 #### [id number] [address] [place] [address] [place] Hematocrit (Bld) [Volume fraction] 28.5 % Low 36.0-46.0 [facility] Comment on above: Order Comment: Speci men Type: BLOOD SPECIMEN Ordering Facility: [facility] Address: [address] [place] [address] Performed By: #### 5 7021-8 #### [facility] CLIA [id number] [address] [place] [address] [place] Hemoglobin (Bld) [Mass/Vol] 9.6 g/dL Low 11.5-15.5 [facility] Comment on above: Order Comment: Speci men Type: BLOOD SPECIMEN Ordering Facility: [facility] Address: [address] [place] [address] Performed By: #### 5 7021-8 #### [facility] CLIA [id number] [address] [place] [address] [place] Immature granulocytes (Bld) [#/Vol] 10*3/uL Normal <0.10 [facility] Comment on above: Order Comment: Speci men Type: BLOOD SPECIMEN Ordering Facility: [facility] Address: [address] [place] [address] Performed By: #### 5 7021-8 #### [facility] CLIA [id number] [address] [place] [address] [place] Immature granulocytes/100 WBC (Bld) 0.5 % Normal [facility] Comment on above: Order Comment: Speci men Type: BLOOD SPECIMEN Ordering Facility: [facility] Address: [address] [place] [address] Performed By: #### 5 7021-8 #### [facility] [id number] [address] [place] [address] [place] Lymphocytes (Bld) [#/Vol] 0.71 10*3/uL Low 1.00-4.00 [facility] Comment on above: Order Comment: Speci men Type: BLOOD SPECIMEN Ordering Facility: [facility] Address: [address] [place] [address] Performed By: #### 5 7021-8 #### [facility] [id number] [address] [place] [address] [place] Lymphocytes/100 WBC (Bld) 17.0 % Normal [facility] Comment on above: Order Comment: Speci men Type: BLOOD SPECIMEN Ordering Facility: [facility] Address: [address] [place] [address] Performed By: #### 5 7021-8 #### [facility] [id number] [address] [place] [address] [place] MCH (RBC) [Entitic mass] 31.2 pg Normal 26.0-34.0 [facility] Comment on above: Order Comment: Speci men Type: BLOOD SPECIMEN Ordering Facility: [facility] Address: [address] [place] [address] Performed By: #### 5 7021-8 #### [facility] CLIA [id number] [address] [place] [address] [place] MCHC (RBC) [Mass/Vol] 33.7 g/dL Normal 30.5-36.0 [facility] Comment on above: Order Comment: Speci men Type: BLOOD SPECIMEN Ordering Facility: [facility] Address: [address] [place] [address] Performed By: #### 5 7021-8 #### [facility] CLIA [id number] [address] [place] [address] [place] MCV (RBC) [Entitic vol] 92.5 fL Normal 80.0-100.0 [facility] Comment on above: Order Comment: Speci men Type: BLOOD SPECIMEN Ordering Facility: [facility] Address: [address] [place] [address] Performed By: #### 5 7021-8 #### [facility] CLIA [id number] [address] [place] [address] [place] Monocytes (Bld) [#/Vol] 0.35 10*3/uL Normal <0.87 [facility] Comment on above: Order Comment: Speci men Type: BLOOD SPECIMEN Ordering Facility: [facility] Address: [address] [place] [address] Performed By: #### 5 7021-8 #### [facility] CLIA [id number] [address] [place] [address] [place] Monocytes/100 WBC (Bld) 8.4 % Normal [facility] Comment on above: Order Comment: Speci men Type: BLOOD SPECIMEN Ordering Facility: [facility] Address: [address] [place] [address] Performed By: #### 5 7021-8 #### [facility] CLIA [id number] [address] [place] [address] [place] Neutrophils (Bld) [#/Vol] 2.98 10*3/uL Normal 1.45-7.50 [facility] Comment on above: Order Comment: Speci men Type: BLOOD SPECIMEN Ordering Facility: [facility] Address: [address] [place] [address] Performed By: #### 5 7021-8 #### [facility] CLIA [id number] [address] [place] [address] [place] Neutrophils/100 WBC (Bld) 71.2 % Normal [facility] Comment on above: Order Comment: Speci men Type: BLOOD SPECIMEN Ordering Facility: [facility] Address: [address] [place] [address] Performed By: #### 5 7021-8 #### [facility] [id number] [address] [place] [address] [place] Nucleated RBC (Bld) [#/Vol] 10*3/uL Normal <0.01 [facility] Comment on above: Order Comment: Speci men Type: BLOOD SPECIMEN Ordering Facility: [facility] Address: [address] [place] [address] Performed By: #### 5 7021-8 #### [facility] [id number] [address] [place] [address] [place] Nucleated RBC/100 WBC (Bld) [Ratio] 0.0 /100 WBC Normal [facility] Comment on above: Order Comment: Speci men Type: BLOOD SPECIMEN Ordering Facility: [facility] Address: [address] [place] [address] Performed By: #### 5 7021-8 #### [facility] [id number] [address] [place] [address] [place] Platelet mean volume (Bld) [Entitic vol] 12.2 fL Normal 9.0-12.7 [facility] Comment on above: Order Comment: Speci men Type: BLOOD SPECIMEN Ordering Facility: [facility] Address: [address] [place], [place] [address] Performed By: #### 5 7021-8 #### [facility] CLIA [id number] [address] [place] [address] [place] Platelets (Bld) [#/Vol] 131 10*3/uL Low 150-400 [facility] Comment on above: Order Comment: Speci men Type: BLOOD SPECIMEN Ordering Facility: [facility] Address: [address] [place] [address] Performed By: #### 5 7021-8 #### [facility] CLIA [id number] [address] [place] [address] [place] RBC (Bld) [#/Vol] 3.08 10*6/uL Low 3.90-5.20 [facility] Comment on above: Order Comment: Speci men Type: BLOOD SPECIMEN Ordering Facility: [facility] Address: [address] [place] [address] Performed By: #### 5 7021-8 #### [facility] CLIA [id number] [address] [place] [address] [place] WBC (Bld) [#/Vol] 4.18 10*3/uL Normal 3.70-11.00 [facility] Comment on above: Order Comment: Speci men Type: BLOOD SPECIMEN Ordering Facility: [facility] Address: [address] [place], [place] [address] Performed By: #### 5 7021-8 #### [facility] CLIA [id number] [address] [place] [address] OF KAYLA Lenin 02-05-2025 IMMANUEL Telephone (HEMAWS) -- TELMA TINEO ([id number]) 1940 F Date Time Provider Department 02/05/25 JUAN MIGUEL YUSUF During your visit today, we recorded the following information about you: Nat Clifford, RN 02/05/2025 10:40 AM Signed [id number] Gemzar/Abraxane Pt has a dental crown that has cracked and pt has been having issues with it for a few weeks. Pt saw a dentist and provided a paper stating the tooth was cracked and needed to be removed. No infection at this time. Dentist asking for clearance. Form given to Dr. Yusuf. Pt has a productive cough x4 days. Producing yellow/clear sputum. C/o SOB with exertion. Denies fever. Dr. Yusuf aware. Pt will have a chest xr after treatment today. Per son in law, patient had israel-red blood with recent bm. Pt is on Eliquis prescribed by Dr. Sarabia for afib. DARREN was advised to contact Dr. Sarabia regarding this. Dr. Yusuf aware. Pt has port insertion on Saturday. Advised to stop Eliquis today per surgeon's office. Dr. Yusuf aware of all issues stated above. States OK for treatment today. Nat Clifford, MAGNUS 02/05/2025 11:[address] Yusuf called in Z morgan for pt. Yelitza Hopper LPN 02/05/2025 1:12 PM Signed Yelitza Hopper LPN 02/05/2025 1:12 PM Signed Timothy notified. Advised ER if she gets worse over the weekend. Encouraged rest and hydration. Scheduled for port placement on Saturday, please assist in moving out one week per secure chat below. Left VM on Timothy's phone that we will need to reschedule. Please call family and assist with rescheduling. PETE Krishna Angela 02/05/2025 2:55 PM Signed Secure chat started for rescheduling port Rachel Bravo 02/05/2025 3:49 PM Signed Spoke with patient's son and reschedule port placement for 02/18. Rachel Bañuelos Allergies As of Date: 02/05/2025 Noted Allergy Reaction PENICILLINS 09/14/2021 10 - Anaphylaxis TETRACYCLINE 09/14/2021 2 - Rash TRAMADOL 07/01/2024 5 - Intolerance Comments: Trembling Date Reviewed: 02/05/2025 Reviewed by: Latrice Melgoza PA-C - Fully Assessed Reason for Visit: Patient Update [1234] Prescriptions as of 02/05/2025 - azithromycin (ZITHROMAX) 250 mg tablet Take 2 tablets by mouth once daily for 1 day, THEN 1 tablet once daily for 4 days. - insulin NPH-insulin regular 70/30 (NOVOLIN 70/30 U-100 INSULIN) 100 unit/mL suspension Inject 17 Units subcutaneously two times a day with meals. With breakfast and dinner - Lancets Test Four times a day. Insulin Dep? Yes uncontrolled dm - blood sugar diagnostic (BLOOD GLUCOSE TEST) test strip Test 4 times daily, Insulin Dep? Yes dm 2 uncontrolled. - ondansetron (ZOFRAN) 8 mg tablet Take 1 tablet by mouth every 8 hours as needed. - sucralfate (CARAFATE) 1 gram tablet Take 1 tablet by mouth four times daily. - Insulin Syringe-Needle U-100 0.5 mL 31 gauge x 5/16 1 Each two times a day. - blood sugar diagnostic test strip Use with blood glucose test 2 times daily, Insulin Dep? Yes - Lancets Use with blood glucose test 2 times daily. Insulin Dep? Yes - alcohol swabs Use with blood glucose test 2 times daily. Insulin Dep? Yes - glucose 4 gram chewable tablet Take 4 tablets by mouth as needed for low blood sugar. - Blood-Glucose Meter,Continuous (FREESTYLE TOLU 3 READER) [facility] Use to check blood sugar at least four (4) times daily. - Blood-Glucose Sensor (FREESTYLE TOLU 3 PLUS SENSOR) benjamin Apply new sensor every fifteen (15) days to upper arm. - metoprolol tartrate, short acting, (LOPRESSOR) 50 mg tablet Take 1.5 tablets by mouth two times a day. - losartan (COZAAR) 100 mg tablet Take 1 tablet by mouth once daily. - pantoprazole DR (PROTONIX) 40 mg tablet Take 1 tablet by mouth two times a day. - PEG 400-propylene glycol (SYSTANE ULTRA) 0.4-0.3 % ophthalmic solution Use 1 Drop in both eyes three times a day. - atorvastatin (LIPITOR) 20 mg tablet Take 1 tablet by mouth once daily. - ELIQUIS 5 mg tab(s) Take 5 mg by mouth two times a day. - amLODIPine (NORVASC) 10 mg tablet Take 10 mg by mouth once daily. - Blood Pressure Test Kit-Large (SURELIFE ARM BP MONITOR) 1 Each once daily. 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 [facility] TEL[facility]INE[facility] ([id number]) 1940 F Date Time Provider Department 02/05/25 HENOK MARTINEZ During your visit today, we recorded the following information about you: Danielle Modi 02/05/2025 9:17 AM Signed Timothy is calling Henok Martinez MD today with concern regarding Patient Question (cough) Son, Timothy, reports patient is on chemo and has had cough and congestion that has not been handled by OTC treatments. Currently they are at a chemo appointment today. Advised to speak to oncology about continued cough and Timothy is asking if she can be prescribed something or give a recommendation. Patient has been identified by name and birthdate. Duration of symptoms: 1 weeks Person calling: son: Timothy Call patient at: [phone] (home) [phone] (cell) Was an appointment scheduled: No. She is at chemo today. Closing statement: Henok Ortiz MD 02/05/2025 9:43 AM Signed With her issues,likely needs seen Li Allison MA 02/05/2025 10:03 AM Signed Message left for sonTimothy to call back to schedule an appointment for Telma. MAL Miller Krystle, RN 02/05/2025 5:05 PM Signed CXR completed today with Dr. Yusuf. ATB started. Follow up scheduled for 02/11/2025 post ATB. Timothy to call back if symptoms change or patient becomes worse. Juanis Schuster RN Allergies As of Date: 02/05/2025 Noted Allergy Reaction PENICILLINS 09/14/2021 10 - Anaphylaxis TETRACYCLINE 09/14/2021 2 - Rash TRAMADOL 07/01/2024 5 - Intolerance Comments: Trembling Date Reviewed: 02/05/2025 Reviewed by: Latrice Melgoza PA-C - Fully Assessed Reason for Visit: Patient Question [2324] Cmt: cough Prescriptions as of 02/05/2025 - azithromycin (ZITHROMAX) 250 mg tablet Take 2 tablets by mouth once daily for 1 day, THEN 1 tablet once daily for 4 days. - insulin NPH-insulin regular 70/30 (NOVOLIN 70/30 U-100 INSULIN) 100 unit/mL suspension Inject 17 Units subcutaneously two times a day with meals. With breakfast and dinner - Lancets Test Four times a day. Insulin Dep? Yes uncontrolled dm - blood sugar diagnostic (BLOOD GLUCOSE TEST) test strip Test 4 times daily, Insulin Dep? Yes dm 2 uncontrolled. - ondansetron (ZOFRAN) 8 mg tablet Take 1 tablet by mouth every 8 hours as needed. - sucralfate (CARAFATE) 1 gram tablet Take 1 tablet by mouth four times daily. - Insulin Syringe-Needle U-100 0.5 mL 31 gauge x /16 1 Each two times a day. - blood sugar diagnostic test strip Use with blood glucose test 2 times daily, Insulin Dep? Yes - Lancets Use with blood glucose test 2 times daily. Insulin Dep? Yes - alcohol swabs Use with blood glucose test 2 times daily. Insulin Dep? Yes - glucose 4 gram chewable tablet Take 4 tablets by mouth as needed for low blood sugar. - Blood-Glucose Meter,Continuous (FREESTYLE TOLU 3 READER) [facility] Use to check blood sugar at least four (4) times daily. - Blood-Glucose Sensor (FREESTYLE TOLU 3 PLUS SENSOR) benjamin Apply new sensor every fifteen (15) days to upper arm. - metoprolol tartrate, short acting, (LOPRESSOR) 50 mg tablet Take 1.5 tablets by mouth two times a day. - losartan (COZAAR) 100 mg tablet Take 1 tablet by mouth once daily. - pantoprazole DR (PROTONIX) 40 mg tablet Take 1 tablet by mouth two times a day. - PEG 400-propylene glycol (SYSTANE ULTRA) 0.4-0.3 % ophthalmic solution Use 1 Drop in both eyes three times a day. - atorvastatin (LIPITOR) 20 mg tablet Take 1 tablet by mouth once daily. - ELIQUIS 5 mg tab(s) Take 5 mg by mouth two times a day. - amLODIPine (NORVASC) 10 mg tablet Take 10 mg by mouth once daily. - Blood Pressure Test Kit-Large (Mapidy ARM BP MONITOR) 1 Each once daily. 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 History of uterine cancer [Z85.42] 09/14/2021 Bronchiectasis without complication (HCC) [J47.*11/22/2022 Atrial fibrillation, unspecified type (HCC) [I4*04/15/2023 Candidiasis of vagina [B37.31] 05/20/2023 05/20/2023 Diagnosed: 05/20/2023 Chest pain [R07.9] 03/12/2023 07/01/2024 Diagnosed: 05/20/2023 Hyperlipidemia [E78.5] 05/20/2023 Diagnosed: 05/20/2023 Impaired cognition [R41.89] 05/20/2023 Diagnosed: 05/20/2023 assisted current use of anticoagulant therapy *05/20/2023 Diagnosed: 05/20/2023 Neck pain [M54.2] 05/20/2023 05/20/2023 Diagnosed: 05/20/2023 Cerebrovascular accident (CVA) (HCC) [I63.9] 05/20/2023 Diagnosed: 05/20/2023 Jaundice [R17] 01/15/2025 Pancreatic mass [K86.89] (more content not included)... [facility] TELMA TINE[facility] ([id number]) 1940 F Date Time Provider Department 02/05/25 ADDISON HOLLEY During your visit today, we recorded the following information about you: Addison Holley LISW 02/05/2025 11:43 AM Signed PSYCHOSOCIAL SCREENING ASSESSMENT Date of Service: February 05, 2025 Telma Tineo is a 84 year old female being seen for initial social work assessment. Diagnosis: Malignant neoplasm of head of pancreas New Primary Oncologist: Juan Miguel Yusuf MD Radiation Oncologist: ADRIANNA Goals of Care: Curative intent Today's visit includes: patient, son, and daughter Family History of Cancer: Mother: Pancreatic; Father: Lung, 3 brothers: unknown dx SUPPORT NETWORK: Social Connections: Not on file Marital status: Parent(s): Mother is and Father is Child/Children: Yes. How many? 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 No Financial Distress: No : No FOOD INSECURITY Within the past year, have you worried about how you would buy or obtain food? No LIVING ARRANGEMENTS: Type: House- dependent (friend/family) [place] Resides with: Family Daughter, Telma and SonTimothy Transportation Needs: No Transportation Needs (01/15/2025) PRAPARE - Transportation Lack of Transportation (Medical): No Lack of Transportation (Non-Medical): No FUNCTIONAL STATUS: Cognitive limitations: none Physical limitations: wheelchair when present for treatments and OV's Language barrier: No Hearing Impaired: No Speech Impaired: No Visual Impairments: No Special considerations/accommodati ons needed: Na HEALTH LITERACY: Do you have difficulty understanding medical instructions or other written materials you receive from you doctor or pharmacy? No Do have difficulty filling out medical forms by yourself? No The following interventions were put into place: NA MEDICATION ADHERENCE: Within the past 2 weeks, have you had difficulty remembering to take your medicine? No Within the past 2 weeks, did you ever miss taking your medications for reasons other than forgetting? No The following interventions were put into place: NA MENTAL HEALTH HISTORY: No History of combat/trauma: No Intimate Partner Violence: Not At Risk (01/15/2025) Safe at Home? Fear of Current or Ex-Partner: Not on file Emotionally Abused: Not on file Physically Abused: Not on file Sexually Abused: Not on file Safe at Home?: Yes Substance Use and Treatment History: denied History of Abuse: No Issues with: Sleep:No Eating:No Exercising: No Stress Management: No ADVANCE DIRECTIVES/LEGAL DOCUMENTS: Living Will: No and provided Living Will information for patient to review Scanned into EPIC: No Health Care Durable Power of Crosstie Inspector: No and provided Living Will information for patient to review Scanned into EPIC: No Guardianship: No Scanned into EPIC:NA Reasons Advanced Directives were not Addressed: NA Advance Care Planning Goals of Care SW met with pt and her children chair-side this date and discussed Advanced Directives. Pt reports she does not have any forms completed at this time but would be interested in completing them. SW explained [place] decision making and provided pt and her children a copy of AD forms. Pt reports she would like to discuss with her children and complete at home. COPING STATUS: Stress: Not on file Coping Strengths: supportive relationships with immediate family, with friends, and with extended family successful managing past crises hopefulness strong problem-solving skills ability to plan able to follow direction consistently over time able to communicate effectively future oriented and able to identify goals Current affect/mood: appropriate History of Loss: Yes, parents Adjustment to diagnosis: reflecting understanding and responding appropriately BARRIERS/CARE CHALLENGES: None Are barriers/care challenges identified likely to have an impact on the patient's quality of life during treatment? No INTERVENTIONS/REFERRALS TO BE PROVIDED: Monitor patient response to treatment Communicate pertinent medical/psychosocial information to Cancer Center team Provide emotional support to patient/family Referral to community resource Continue follow up as needed Resources and Referrals: Internal: [facility] External: [facility] a (more content not included)... Normal [facility] Telephone (LUKE) -- TELMA TINEO ([id number]) 1940 F Date Time Provider Department 02/05/25 ADDISON HOLLEY During your visit today, we recorded the following information about you: Addison Holley LISW 02/05/2025 11:59 AM Signed SOCIAL WORK FOLLOW UP NOTE: CANCER CENTER Date of service: February 05, 2025 Telma Tineo is being seen for a follow up social work visit. Today's visit includes: Son/Caregiver, Timothy TOPICS ADDRESSED: coping/support - Following chair-side assessment with family this date, pt's son, Timothy, asked to speak with SW privately. SAM provided emotional support this date and discussed with Timothy his adjustment to pt's diagnosis, family dynamics, challenges being pt's sole caregiver, and some spiritual distress son is experiencing. Timothy reports he plans to take advantage of support groups, either through [facility], [facility], or [facility]. He reports he needs an outlet and was appreciate for time to speak with SW this date. SW utilized active listening, empathy, and support. Timothy encouraged to call or stop in and speak with SW anytime and also to utilize support groups and family resources available to him. SW spent 35 minutes this date with Timothy. PLAN: Communicate pertinent medical/psychosocial information to Cancer Center team, Continue follow up as needed , and Provide emotional support to patient/family F/U APPOINTMENT: PRN Assigned SW listed in Care Team tab: Yes KANDACE Ferguson Allergies As of Date: 02/05/2025 Noted Allergy Reaction PENICILLINS 09/14/2021 10 - Anaphylaxis TETRACYCLINE 09/14/2021 2 - Rash TRAMADOL 07/01/2024 5 - Intolerance Comments: Trembling Date Reviewed: 02/05/2025 Reviewed by: Nat Clifford, MAGNUS - Fully Assessed Reason for Visit: Social Work Services [507] Family Support [Other] Prescriptions as of 02/05/2025 - azithromycin (ZITHROMAX) 250 mg tablet Take 2 tablets by mouth once daily for 1 day, THEN 1 tablet once daily for 4 days. - insulin NPH-insulin regular 70/30 (NOVOLIN 70/30 U-100 INSULIN) 100 unit/mL suspension Inject 17 Units subcutaneously two times a day with meals. With breakfast and dinner - Lancets Test Four times a day. Insulin Dep? Yes uncontrolled dm - blood sugar diagnostic (BLOOD GLUCOSE TEST) test strip Test 4 times daily, Insulin Dep? Yes dm 2 uncontrolled. - ondansetron (ZOFRAN) 8 mg tablet Take 1 tablet by mouth every 8 hours as needed. - sucralfate (CARAFATE) 1 gram tablet Take 1 tablet by mouth four times daily. - Insulin Syringe-Needle U-100 0.5 mL 31 gauge x 5/16 1 Each two times a day. - blood sugar diagnostic test strip Use with blood glucose test 2 times daily, Insulin Dep? Yes - Lancets Use with blood glucose test 2 times daily. Insulin Dep? Yes - alcohol swabs Use with blood glucose test 2 times daily. Insulin Dep? Yes - glucose 4 gram chewable tablet Take 4 tablets by mouth as needed for low blood sugar. - Blood-Glucose Meter,Continuous (FREESTYLE TOLU 3 READER) misc Use to check blood sugar at least four (4) times daily. - Blood-Glucose Sensor (FREESTYLE TOLU 3 PLUS SENSOR) benjamin Apply new sensor every fifteen (15) days to upper arm. - metoprolol tartrate, short acting, (LOPRESSOR) 50 mg tablet Take 1.5 tablets by mouth two times a day. - losartan (COZAAR) 100 mg tablet Take 1 tablet by mouth once daily. - pantoprazole DR (PROTONIX) 40 mg tablet Take 1 tablet by mouth two times a day. - PEG 400-propylene glycol (SYSTANE ULTRA) 0.4-0.3 % ophthalmic solution Use 1 Drop in both eyes three times a day. - atorvastatin (LIPITOR) 20 mg tablet Take 1 tablet by mouth once daily. - ELIQUIS 5 mg tab(s) Take 5 mg by mouth two times a day. - amLODIPine (NORVASC) 10 mg tablet Take 10 mg by mouth once daily. - Blood Pressure Test Kit-Large (Mapidy ARM BP MONITOR) 1 Each once daily. 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 History of uterine cancer [Z85.42] 09/14/2021 Bronchiectasis without complication (HCC) [J47.*11/22/2022 Atrial fibrillation, unspecified type (HCC) [I4*04/15/2023 Candidiasis of vagina [B37.31] 05/20/2023 05/20/2023 Diagnosed: 05/20/2023 Chest pain [R07.9] 03/12/2023 07/01/2024 Diagnosed: 05/20/2023 Hyperlipidemia [E78.5] 05/20/2023 Diagnosed: 05/20/2023 Impaired cognition [R41.89] 05/20/2023 Diagnosed: 05/20/2023 assisted current use of anticoagulant therapy *05/20/2023 Diagnosed: 05/20/2023 Neck pain [M54.2] 05/20/2023 05/20/2023 Diagnosed: 05/20/2023 Cerebrovascular accident (CVA) (HCC) [I6 (more content not included)... Normal [facility] XR CHEST 2V FRONTAL/LATon XR CHEST 2V FRONTAL/LAT * * *Final Report* * * DATE OF EXAM: Feb 05 2025 12:02PM [id number] - XR CHEST 2V FRONTAL/LAT / PROCEDURE REASON: multiple diagnoses * * * * Physician Interpretation * * * * EXAMINATION: CHEST RADIOGRAPH (2 VIEW FRONTAL and LATERAL) CLINICAL HISTORY: 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) Dyspnea and respiratory abnormalities MQ: XC2_6 EXAM DATE/TIME: 02/05/2025 12:02 PM COMPARISON: 11/05/2024 01/16/2025 CT RESULT: Lines, tubes, and devices: None. Lungs and pleura: New airspace disease in the left lower lobe posteriorly. Lung monsalve are otherwise clear. No lung mass. No pleural effusion. No pneumothorax. Cardiomediastinal silhouette: Normal cardiomediastinal silhouette. Bones and soft tissues: Unremarkable. IMPRESSION: New airspace disease in the left lower lobe is consistent with pneumonia. Follow-up to document resolution recommended Supervisor Billposting: AMBER Transcribe Date/Time: Feb 05 2025 12:27P Dictated by : VELASQUEZ BENTON MD This examination was interpreted and the report reviewed and electronically signed by: VELASQUEZ BENTON MD on Feb 05 2025 12:29PM EST [id number] Normal [facility] XR Chest PA and Lateralon IMPRESSION: New airspace disease in the left lower lobe is consistent with pneumonia. Follow-up to document resolution recommended Supervisor Billposting: PSCB Transcribe Date/Time: Feb 05 2025 12:27P Dictated by : VELASQUEZ BENTON MD This examination was interpreted and the report reviewed and electronically signed by: VELASQUEZ BENTON MD on Feb 05 2025 12:29PM EST DIVISION OF RADIOLOGY * * *Final Report* * * DATE OF EXAM: Feb 05 2025 12:02PM [id number] - XR CHEST 2V FRONTAL/LAT / PROCEDURE REASON: multiple diagnoses * * * * Physician Interpretation * * * * EXAMINATION: CHEST RADIOGRAPH (2 VIEW FRONTAL & LATERAL) CLINICAL HISTORY: 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) Dyspnea and respiratory abnormalities MQ: XC2_6 EXAM DATE/TIME: 02/05/2025 12:02 PM COMPARISON: 11/05/2024 01/16/2025 CT RESULT: Lines, tubes, and devices: None. Lungs and pleura: New airspace disease in the left lower lobe posteriorly. Lung monsalve are otherwise clear. No lung mass. No pleural effusion. No pneumothorax. Cardiomediastinal silhouette: Normal cardiomediastinal silhouette. Bones and soft tissues: Unremarkable. DIVISION OF RADIOLOGY Provider, [facility] - 02/05/2025 * * *Final Report* * * DATE OF EXAM: Feb 05 2025 12:02PM [id number] - XR CHEST 2V FRONTAL/LAT / PROCEDURE REASON: multiple diagnoses * * * * Physician Interpretation * * * * EXAMINATION: CHEST RADIOGRAPH (2 VIEW FRONTAL & LATERAL) CLINICAL HISTORY: 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) Dyspnea and respiratory abnormalities MQ: XC2_6 EXAM DATE/TIME: 02/05/2025 12:02 PM COMPARISON: 11/05/2024 01/16/2025 CT RESULT: Lines, tubes, and devices: None. Lungs and pleura: New airspace disease in the left lower lobe posteriorly. Lung monsalve are otherwise clear. No lung mass. No pleural effusion. No pneumothorax. Cardiomediastinal silhouette: Normal cardiomediastinal silhouette. Bones and soft tissues: Unremarkable. IMPRESSION IMPRESSION: New airspace disease in the left lower lobe is consistent with pneumonia. Follow-up to document resolution recommended Supervisor Billposting: PSCB Transcribe Date/Time: Feb 05 2025 12:27P Dictated by : VELASQUEZ BENTON MD This examination was interpreted and the report reviewed and electronically signed by: VELASQUEZ BENTON MD on Feb 05 2025 12:29PM EST [facility] Radiology Study observation (narrative) [facility] XR Chest PA and LateralOrder ed By: [facility] Provider on 02-05-2025 [facility] CNOVon 02-04-2025 CNOV Normal [facility] CNPNon 02-04-2025 CNPN Telephone (LUKE) -- TELMA TINEO ([id number]) 1940 F Date Time Provider Department 02/04/25 MARIA ISABEL SILVERIO During your visit today, we recorded the following information about you: Maria Isabel Silverio RN 02/04/2025 11:19 AM Signed Call for update on patient. Spoke with Timothy, they are at f/u with Dr. Nguyễn. He will call back at a later time. MAGNUS Amos Cathleen, RN 02/05/2025 8:59 AM Signed No return phone call yesterday or this am. She has treatment scheduled for today and we can f/u with Timothy/patient at that time. Elaina Silverio RN Allergies As of Date: 02/04/2025 Noted Allergy Reaction PENICILLINS 09/14/2021 10 - Anaphylaxis TETRACYCLINE 09/14/2021 2 - Rash TRAMADOL 07/01/2024 5 - Intolerance Comments: Trembling Date Reviewed: 02/04/2025 Reviewed by: Ayaz Nguyễn MD - Fully Assessed Reason for Visit: Care Coordination [7146] Cmt: Follow up Note Prescriptions as of 02/05/2025 - insulin NPH-insulin regular 70/30 (NOVOLIN 70/30 U-100 INSULIN) 100 unit/mL suspension Inject 17 Units subcutaneously two times a day with meals. With breakfast and dinner - Lancets Test Four times a day. Insulin Dep? Yes uncontrolled dm - blood sugar diagnostic (BLOOD GLUCOSE TEST) test strip Test 4 times daily, Insulin Dep? Yes dm 2 uncontrolled. - ondansetron (ZOFRAN) 8 mg tablet Take 1 tablet by mouth every 8 hours as needed. - sucralfate (CARAFATE) 1 gram tablet Take 1 tablet by mouth four times daily. - Insulin Syringe-Needle U-100 0.5 mL 31 gauge x 5/16 1 Each two times a day. - blood sugar diagnostic test strip Use with blood glucose test 2 times daily, Insulin Dep? Yes - Lancets Use with blood glucose test 2 times daily. Insulin Dep? Yes - alcohol swabs Use with blood glucose test 2 times daily. Insulin Dep? Yes - glucose 4 gram chewable tablet Take 4 tablets by mouth as needed for low blood sugar. - Blood-Glucose Meter,Continuous (FREESTYLE TOLU 3 READER) [facility] Use to check blood sugar at least four (4) times daily. - Blood-Glucose Sensor (FREESTYLE TOLU 3 PLUS SENSOR) benjamin Apply new sensor every fifteen (15) days to upper arm. - metoprolol tartrate, short acting, (LOPRESSOR) 50 mg tablet Take 1.5 tablets by mouth two times a day. - losartan (COZAAR) 100 mg tablet Take 1 tablet by mouth once daily. - pantoprazole DR (PROTONIX) 40 mg tablet Take 1 tablet by mouth two times a day. - PEG 400-propylene glycol (SYSTANE ULTRA) 0.4-0.3 % ophthalmic solution Use 1 Drop in both eyes three times a day. - atorvastatin (LIPITOR) 20 mg tablet Take 1 tablet by mouth once daily. - ELIQUIS 5 mg tab(s) Take 5 mg by mouth two times a day. - amLODIPine (NORVASC) 10 mg tablet Take 10 mg by mouth once daily. - Blood Pressure Test Kit-Large (FirmexLIFE ARM BP MONITOR) 1 Each once daily. 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/14/2021 History of uterine cancer [Z85.42] 09/14/2021 Bronchiectasis without complication (HCC) [J47.*11/22/2022 Atrial fibrillation, unspecified type (HCC) [I4*04/15/2023 Candidiasis of vagina [B37.31] 05/20/2023 05/20/2023 Diagnosed: 05/20/2023 Chest pain [R07.9] 03/12/2023 07/01/2024 Diagnosed: 05/20/2023 Hyperlipidemia [E78.5] 05/20/2023 Diagnosed: 05/20/2023 Impaired cognition [R41.89] 05/20/2023 Diagnosed: 05/20/2023 assisted current use of anticoagulant therapy *05/20/2023 Diagnosed: 05/20/2023 Neck pain [M54.2] 05/20/2023 05/20/2023 Diagnosed: 05/20/2023 Cerebrovascular accident (CVA) (HCC) [I63.9] 05/20/2023 Diagnosed: 05/20/2023 Jaundice [R17] 01/15/2025 Pancreatic mass [K86.89] 01/15/2025 Type 2 diabetes mellitus with hyperglycemia (HC*01/18/2025 Hyperglycemia [R73.9] 01/18/2025 Elevated hemoglobin A1c [R73.09] 01/18/2025 Obstructive jaundice [K83.1] 01/18/2025 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) [C*01/21/2025 Encounter Status:Closed by MARIA ISABEL SILVERIO on 02/05/25 [facility] Lenin 02-03-2025 CNPN Telephone (JUSTA) -- TELMA TINEO ([id number]) 1940 F Date Time Provider Department 02/03/25 FINANCIAL NAVIGATOR VIRAJ MARR During your visit today, we recorded the following information about you: Nakul Bliss 02/03/2025 12:25 PM Signed 1st time treatment report. Spoke with patient's son, Timothy, and explained that the patient has Medicare A and B as well as [facility] Medicaid so she is covered at 100%. Told him to call me periodically to see if any assistance opens up for her pancreatic cancer. Sent Cost [employer]it to patient's mychart. Diagnosis: Pancreatic Cancer - C25.0...01/19/25 Doctor: Juan Miguel Yusuf MD...[id number] Allergies As of Date: 02/03/2025 Noted Allergy Reaction PENICILLINS 09/14/2021 10 - Anaphylaxis TETRACYCLINE 09/14/2021 2 - Rash TRAMADOL 07/01/2024 5 - Intolerance Comments: Trembling Date Reviewed: 02/01/2025 Reviewed by: Shabnam Ruiz LPN - Fully Assessed Reason for Visit: Benefits Investigation [8667] Prescriptions as of 02/03/2025 - insulin NPH-insulin regular 70/30 (NOVOLIN 70/30 U-100 INSULIN) 100 unit/mL suspension Inject 17 Units subcutaneously two times a day with meals. With breakfast and dinner - Lancets Test Four times a day. Insulin Dep? Yes uncontrolled dm - blood sugar diagnostic (BLOOD GLUCOSE TEST) test strip Test 4 times daily, Insulin Dep? Yes dm 2 uncontrolled. - ondansetron (ZOFRAN) 8 mg tablet Take 1 tablet by mouth every 8 hours as needed. - sucralfate (CARAFATE) 1 gram tablet Take 1 tablet by mouth four times daily. - Insulin Syringe-Needle U-100 0.5 mL 31 gauge x 5/16 1 Each two times a day. - blood sugar diagnostic test strip Use with blood glucose test 2 times daily, Insulin Dep? Yes - Lancets Use with blood glucose test 2 times daily. Insulin Dep? Yes - alcohol swabs Use with blood glucose test 2 times daily. Insulin Dep? Yes - glucose 4 gram chewable tablet Take 4 tablets by mouth as needed for low blood sugar. - Blood-Glucose Meter,Continuous (FREESTYLE TOLU 3 READER) [facility] Use to check blood sugar at least four (4) times daily. - Blood-Glucose Sensor (FREESTYLE TOLU 3 PLUS SENSOR) benjamin Apply new sensor every fifteen (15) days to upper arm. - metoprolol tartrate, short acting, (LOPRESSOR) 50 mg tablet Take 1.5 tablets by mouth two times a day. - losartan (COZAAR) 100 mg tablet Take 1 tablet by mouth once daily. - pantoprazole DR (PROTONIX) 40 mg tablet Take 1 tablet by mouth two times a day. - PEG 400-propylene glycol (SYSTANE ULTRA) 0.4-0.3 % ophthalmic solution Use 1 Drop in both eyes three times a day. - atorvastatin (LIPITOR) 20 mg tablet Take 1 tablet by mouth once daily. - ELIQUIS 5 mg tab(s) Take 5 mg by mouth two times a day. - amLODIPine (NORVASC) 10 mg tablet Take 10 mg by mouth once daily. - Blood Pressure Test Kit-Large (Mapidy ARM BP MONITOR) 1 Each once daily. 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] 09/14/2021 History of uterine cancer [Z85.42] 09/14/2021 Bronchiectasis without complication (HCC) [J47.*11/22/2022 Atrial fibrillation, unspecified type (HCC) [I4*04/15/2023 Candidiasis of vagina [B37.31] 05/20/2023 05/20/2023 Diagnosed: 05/20/2023 Chest pain [R07.9] 03/12/2023 07/01/2024 Diagnosed: 05/20/2023 Hyperlipidemia [E78.5] 05/20/2023 Diagnosed: 05/20/2023 Impaired cognition [R41.89] 05/20/2023 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 *05/20/2023 Diagnosed: 05/20/2023 Neck pain [M54.2] 05/20/2023 05/20/2023 Diagnosed: 05/20/2023 Cerebrovascular accident (CVA) (HCC) [I63.9] 05/20/2023 Diagnosed: 05/20/2023 Jaundice [R17] 01/15/2025 Pancreatic mass [K86.89] 01/15/2025 Type 2 diabetes mellitus with hyperglycemia (HC*01/18/2025 Hyperglycemia [R73.9] 01/18/2025 Elevated hemoglobin A1c [R73.09] 01/18/2025 Obstructive jaundice [K83.1] 01/18/2025 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) [C*01/21/2025 Encounter Status:Closed by NAKUL BLISS on 02/03/25 [facility] CNOVon 02-01-2025 CNOV Office Visit (FAMPWS ) -- TELMA TINEO ([id number]) 1940 F Date Time Provider Department 02/01/25 11:00 AM HENOK MARTINEZ FAMPWS During your visit today, we recorded the following information about you: Temperature Pulse Blood pressure Weight 98.8 degrees 79/minute 102/62 68.5 kg Henok Martinez MD 02/01/2025 12:57 PM Signed Patient presents with: Hospital F/U: Having issue with tooth and trying to get into free dental clinic very soon. HPI: Patient presents today for office visit for hospital follow up Has to follow with hematology. With gi. Has plastic stent in bilary tree that needs exchanged in three months. Has appt with endo coming up. Has follow up with general surgery soon and is scheduled also for port placement. They kept her for an additional three days. They held the asa and eliquis. She was to resume asa for two days and then resume eliquis per cardiology. She will not take asa and has not stopped eliquis. Discussed that if gi felt comfortable to resume, I would restart it and call if any signs of further bleeding. Hematology will be following labs. She is also due to see endo. Her sugars have been higher. After much discussion she agreed to increase insulin by 2 units bid and son will send list of sugars next week. No significant chest pain or shortness of breath. Her jaundice has resolved. No itching or abd pain No nausea or vomiting. No black or bloody stools. She is using miralax. Apparently for years has had occasional constipation and uses mag citrate. She would like to take a dose now. Suggested she could try half a bottle but would take miralax regularly. Note was copied and pasted, without alteration from discharge summary. Admitted to [facility] and then transferred to [facility]. Admission Information ADMIT DATE: 01/14/2025 DISCHARGE DATE: 01/23/2025 REASON I WAS IN THE HOSPITAL: Uncontrolled diabetes, melena(GI bleed), pancreatic adenocarcinoma, obstructive jaundice, duodenal ulcer SUMMARY OF WHAT HAPPENED WHILE I WAS IN THE HOSPITAL: The patient is a pleasant 84-year-old female with history of A-fib on Eliquis and type 2 diabetes presented from [place] with pancreatic mass. She underwent EUS, ERCP with biliary stent and had biopsy. The pathology showed pancreatic adenocarcinoma. Her liver function tests were trending. Hepatobiliary recommended neoadjuvant therapy. She had a fever and was started on empiric Cipro per GI recommendation. She began to improve. She tolerated her diet. She was managed by endocrinology for her diabetes. Initially she was resistant to insulin, but then agreeable. She was seen by diabetes education. Patient developed melena and had EGD performed. EGD showed small 4 mm ulcer abutting biliary stent which cannot be repositioned. Unclear if bleeding is from ulcer or sphincterotomy however no active bleeding was seen. GI team recommended continuing to hold Eliquis for additional 2 days but okay with her receiving aspirin during that timeframe. They recommend starting Eliquis after that. Recommend repeat hemoglobin check as outpatient. She will need close outpatient follow-up. She was asked to monitor for any recurrent bleeding. She has outpatient appointment scheduled with hematology. Prior to discharge discussed risk benefits of reinitiation of antiplatelet/anticoagulati on. Patient understanding that there is a risk of recurrent bleeding and to monitor for worsening blood in her stool or black stools. As to avoid NSAIDs. Patient agreeable to return resumption of anticoagulation plan and repeat blood work to ensure stability. She will also follow-up in the next week with her primary care doctor as well as hematology team. Patient asked to stop Eliquis if she develops any recurrent bleeding. Patient also wishes to recheck out to her mechanical systems engineer earlier this week to ensure that he does not want to change her anticoagulation. She understands however that without anticoagulation she would be at increased risk of stroke especially in her history of prior stroke. OTHER PROBLEMS/DIAGNOSIS: Principal Problem: Jaundice Active Problems: Pancreatic mass Type 2 diabetes mellitus with hyperglycemia (HCC) Hyperglycemia Elevated hemoglobin A1c Obstructive jaundice 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) Resolved Problems: * No resolved hospital problems. * MEDICATIONS: Current Outpatient Medications Medication Sig sucralfate (CARAFATE) 1 gram tablet Take 1 tablet by mouth four times daily. metoprolol tartrate, short acting, (LOPRESSOR) 50 mg tablet Take 1.5 tablets by mouth two times a day. losartan (COZAAR) 100 mg tablet Take 1 tablet by mouth once daily. pantoprazole DR (PROTONIX) 40 mg tablet Take 1 tablet by mouth two times a day. (Patient taking differently: Take 40 mg by mouth two times a day. Patient reports once daily) a (more content not included)... Normal [facility] 01-29-2025 [facility] Telephone ([facility]) -- TELMA TINEO ([id number]) 1940 F Date Time Provider Department 01/29/25 ADDISON HOLLEY During your visit today, we recorded the following information about you: Addison Holley LISW 01/29/2025 3:30 PM Signed SOCIAL WORK FOLLOW UP NOTE: [facility] Date of service: January 29, 2025 Telma Tineo is being seen for a follow up social work visit. Today's visit includes: daughterTelma TOPICS ADDRESSED: SAM met with pt's daughterTelma, this date. Daughter brought in FMLA forms and discussed with SW. Daughter reports she will call SAM and provide work fax number to fax forms to. Daughter informed that Dr. Currie is gone for the day and forms will be completed Saturday, daughter in agreement. SAM also discussed with pt additional dental resources for her mother. Print out of offices by [facility] that accept Medicaid provided to pt's daughter. A few additional resources in [facility] provided as well. SW and pt also discussed how pt is doing with adjusting to diagnosis and treatment. Daughter reports when they found out, the whole family as present and everyone lost it. Daughter describes a very close family, reporting she and her brother Timothy are caring for her mother. She reports they have already acquired a shower stool and walker for pt and have already made household adjustments to make things more accessible as she continues treatment. Pt inquiring about bedside commode, SW discussed with daughter how to acquire one. SW answered all questions as able and provided emotional support and active listening throughout. No other needs identified at this time. PLAN: Continue follow up as needed F/U APPOINTMENT: PRN Assigned SW listed in Care Team tab: Yes KANDACE Ferguson Allergies As of Date: 01/29/2025 Noted Allergy Reaction PENICILLINS 09/14/2021 10 - Anaphylaxis TETRACYCLINE 09/14/2021 2 - Rash TRAMADOL 07/01/2024 5 - Intolerance Comments: Trembling Date Reviewed: 01/28/2025 Reviewed by: Addison Monreal RN - Fully Assessed Reason for Visit: Social Work Services [507] Prescriptions as of 01/29/2025 - Lancets Test Four times a day. Insulin Dep? Yes uncontrolled dm - Blood-Glucose Meter Test Four times a day. Insulin Dep? Yes uncontrolled sm - blood sugar diagnostic (BLOOD GLUCOSE TEST) test strip Test 4 times daily, Insulin Dep? Yes dm 2 uncontrolled. - ondansetron (ZOFRAN) 8 mg tablet Take 1 tablet by mouth every 8 hours as needed. - aspirin, enteric coated (ASPIRIN, ENTERIC COATED) 81 mg EC tablet Take 1 tablet by mouth once daily for 3 doses. - sucralfate (CARAFATE) 1 gram tablet Take 1 tablet by mouth four times daily. - insulin NPH-insulin regular 70/30 (NOVOLIN 70/30 U-100 INSULIN) 100 unit/mL suspension Inject 15 Units subcutaneously two times a day with meals. With breakfast and dinner - Insulin Syringe-Needle U-100 0.5 mL 31 gauge x 5/16 1 Each two times a day. - blood sugar diagnostic test strip Use with blood glucose test 2 times daily, Insulin Dep? Yes - Lancets Use with blood glucose test 2 times daily. Insulin Dep? Yes - alcohol swabs Use with blood glucose test 2 times daily. Insulin Dep? Yes - glucose 4 gram chewable tablet Take 4 tablets by mouth as needed for low blood sugar. - Blood-Glucose Meter,Continuous (FREESTYLE TOLU 3 READER) [facility] Use to check blood sugar at least four (4) times daily. - Blood-Glucose Sensor (FREESTYLE TOLU 3 PLUS SENSOR) benjamin Apply new sensor every fifteen (15) days to upper arm. - metoprolol tartrate, short acting, (LOPRESSOR) 50 mg tablet Take 1.5 tablets by mouth two times a day. - losartan (COZAAR) 100 mg tablet Take 1 tablet by mouth once daily. - pantoprazole DR (PROTONIX) 40 mg tablet Take 1 tablet by mouth two times a day. - PEG 400-propylene glycol (SYSTANE ULTRA) 0.4-0.3 % ophthalmic solution Use 1 Drop in both eyes three times a day. - atorvastatin (LIPITOR) 20 mg tablet Take 1 tablet by mouth once daily. - ELIQUIS 5 mg tab(s) Take 5 mg by mouth two times a day. - amLODIPine (NORVASC) 10 mg tablet Take 10 mg by mouth once daily. - Blood Pressure Test Kit-Large (Mapidy ARM BP MONITOR) 1 Each once daily. 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 Normal [facility] Telephone ([facility]) -- TELMA TINEO ([id number]) 1940 F Date Time Provider Department 01/29/25 MARIA ISABEL SILVERIO During your visit today, we recorded the following information about you: Maria Isabel Silverio RN 01/29/2025 10:32 AM Signed CYCLE 1/DAY 1 POST TREATMENT CALL Today's date: January 29, 2025 Treatment Regimen: Gemzar/Abraxane C1D1 Date: 01/28/25 Call to patient, message left to call me back and phone/contact number provided. Maria Isabel Silverio RN [facility] 01/29/2025 10:39 AM Signed Son returned call. Care coord went to [facility]. Maria Isabel Silverio RN 01/29/2025 11:54 AM Signed CYCLE 1/DAY 1 POST TREATMENT CALL Called patient to follow-up on symptom management. Spoke with son. States patient is doing well. A little nausea, using Zofran and helping, no emesis. She had an irritating cough last pm also. Advised to monitor and seek medical attention for any worsening cough associated with fever, shortness of breath or other concerning symptoms. Son states understanding. Update on tooth that needs crown replaced, they have appointment with [facility] but not for awhile. He has called a place in [place] and waiting to hear back from them to see their availability. The main issue is finding a place that will take Medicaid and see her sooner than [facility]. He will watch for signs of infection and keep us updated. He states she is having pain associated in that area. Discussed port and Emla cream. Will call in Rx for Emla cream after port placed on 02/08/25. Patient agreed to wait for Rx until time for port placement. SYMPTOM ASSESSMENT Neuro: None CV/Resp: Cough: Yes; dry GI/: Nausea using Zofran, no emesis. Integument: None Activity: Activity Level (0-100%): decreased Pain: No=0 (pain 0 on a scale of 0-10). Fever: No Chills: No Any new referrals needed? No Reinforced CURRENT treatment education based on current and anticipated symptoms. Discussed port/line care and patient verbalizes understanding: Not Applicable Patient instructed to contact office or after hours Hematology/Oncology fellow for: temperature >= 100.4; questions or concerns. Patient verbalized understanding of when to seek medical attention and after hours number protocol. MAGNUS Yuan Cathleen, MAGNUS 01/29/2025 11:54 AM Signed Attempted to call [facility] to inquire first availability. That department is closed on Saturday, will try again on Saturday. MAGNUS Amos Cathleen, MAGNUS 02/01/2025 11:46 AM Signed Call to [facility]. Was able to leave VM with question along with my contact information for them to return call. MAGNUS Amos Cathleen, MAGNUS 02/01/2025 1:52 PM Signed [facility] returned call and next availability for an emergency case would be several months out at this time. Elaina Silverio RN Allergies As of Date: 01/29/2025 Noted Allergy Reaction PENICILLINS 09/14/2021 10 - Anaphylaxis TETRACYCLINE 09/14/2021 2 - Rash TRAMADOL 07/01/2024 5 - Intolerance Comments: Trembling Date Reviewed: 01/28/2025 Reviewed by: Addison Monreal RN - Fully Assessed Reason for Visit: Care Coordination [9717] Prescriptions as of 02/04/2025 - insulin NPH-insulin regular 70/30 (NOVOLIN 70/30 U-100 INSULIN) 100 unit/mL suspension Inject 17 Units subcutaneously two times a day with meals. With breakfast and dinner - Lancets Test Four times a day. Insulin Dep? Yes uncontrolled dm - blood sugar diagnostic (BLOOD GLUCOSE TEST) test strip Test 4 times daily, Insulin Dep? Yes dm 2 uncontrolled. - ondansetron (ZOFRAN) 8 mg tablet Take 1 tablet by mouth every 8 hours as needed. - sucralfate (CARAFATE) 1 gram tablet Take 1 tablet by mouth four times daily. - Insulin Syringe-Needle U-100 0.5 mL 31 gauge x 5/16 1 Each two times a day. - blood sugar diagnostic test strip Use with blood glucose test 2 times daily, Insulin Dep? Yes - Lancets Use with blood glucose test 2 times daily. Insulin Dep? Yes - alcohol swabs Use with blood glucose test 2 times daily. Insulin Dep? Yes - glucose 4 gram chewable tablet Take 4 tablets by mouth as needed for low blood sugar. - Blood-Glucose Meter,Continuous (FREESTYLE TOLU 3 READER) [facility] Use to check blood sugar at least four (4) times daily. - Blood-Glucose Sensor (FREESTYLE TOLU 3 PLUS SENSOR) benjamin Apply new sensor every fifteen (15) days to upper arm. - metoprolol tartrate, short acting, (LOPRESSOR) 50 mg tablet Take 1.5 tablets by mouth two times a day. - losartan (COZAAR) 100 mg tablet Take 1 tablet by mouth once daily. - pantoprazole DR (PROTONIX) 40 mg tablet Take 1 tablet by mouth two times a day. - PEG 400-propylene glycol (SYSTANE ULTRA) 0.4-0.3 % ophthalmic solution Use 1 Drop in both eyes three times a day. - atorvastatin (LIPITOR) 20 mg tablet Take (more content not included)... [facility] TELMA TINEO ([id number]) 1940 F Date Time Provider Department 01/29/25 HENOK MARTINEZ During your visit today, we recorded the following information about you: Danielle Modi 01/29/2025 12:11 PM Signed Timothy is calling Henok Martinez MD today to request a new glucometer, test, strips, and lancets. Patient has a freestyle tolu, but it is malfunctioning and they will not get a replacement for at least 10 days. Please send to [facility] in [place] Patient has been identified by name and birthdate. Duration of symptoms: Person calling: son: Timothy Call patient at: at home [phone] (home) [phone] (cell) Was an appointment scheduled: No Closing statement: Sun Alatorre OCCA 01/29/2025 1:25 PM Signed ESTELLE 11/04/2024 NOV 02/01/2025 Henok Martinez MD 01/29/2025 1:33 PM Signed sent Sun Knowles OCCA 01/29/2025 1:42 PM Signed TC back to Timothy who verbalized understanding that scripts sent as requested. CHAY Tolbert Allergies As of Date: 01/29/2025 Noted Allergy Reaction PENICILLINS 09/14/2021 10 - Anaphylaxis TETRACYCLINE 09/14/2021 2 - Rash TRAMADOL 07/01/2024 5 - Intolerance Comments: Trembling Date Reviewed: 01/28/2025 Reviewed by: Addison Monreal RN - Fully Assessed Reason for Visit: glucometer [Other] Primary Visit Diagnosis:Type 2 diabetes mellitus with hyperglycemia, with long-term current use of insulin (HCC) [E11.65, Z79.4] Order(s):LancetsTest Four times a day. Insulin Dep? Yes uncontrolled dmDisp: 200 eachRfl: 4 Blood-Glucose MeterTest Four times a day. Insulin Dep? Yes uncontrolled smDisp: 1 eachRfl: 0 blood sugar diagnostic (BLOOD GLUCOSE TEST) test stripTest 4 times daily, Insulin Dep? Yes dm 2 uncontrolled.Disp: 300 stripRfl: 4 Prescriptions as of 01/29/2025 - Lancets Test Four times a day. Insulin Dep? Yes uncontrolled dm - Blood-Glucose Meter Test Four times a day. Insulin Dep? Yes uncontrolled sm - blood sugar diagnostic (BLOOD GLUCOSE TEST) test strip Test 4 times daily, Insulin Dep? Yes dm 2 uncontrolled. - ondansetron (ZOFRAN) 8 mg tablet Take 1 tablet by mouth every 8 hours as needed. - aspirin, enteric coated (ASPIRIN, ENTERIC COATED) 81 mg EC tablet Take 1 tablet by mouth once daily for 3 doses. - sucralfate (CARAFATE) 1 gram tablet Take 1 tablet by mouth four times daily. - insulin NPH-insulin regular 70/30 (NOVOLIN 70/30 U-100 INSULIN) 100 unit/mL suspension Inject 15 Units subcutaneously two times a day with meals. With breakfast and dinner - Insulin Syringe-Needle U-100 0.5 mL 31 gauge x 5/16 1 Each two times a day. - blood sugar diagnostic test strip Use with blood glucose test 2 times daily, Insulin Dep? Yes - Lancets Use with blood glucose test 2 times daily. Insulin Dep? Yes - alcohol swabs Use with blood glucose test 2 times daily. Insulin Dep? Yes - glucose 4 gram chewable tablet Take 4 tablets by mouth as needed for low blood sugar. - Blood-Glucose Meter,Continuous (FREESTYLE TOLU 3 READER) misc Use to check blood sugar at least four (4) times daily. - Blood-Glucose Sensor (FREESTYLE TOLU 3 PLUS SENSOR) benjamin Apply new sensor every fifteen (15) days to upper arm. - metoprolol tartrate, short acting, (LOPRESSOR) 50 mg tablet Take 1.5 tablets by mouth two times a day. - losartan (COZAAR) 100 mg tablet Take 1 tablet by mouth once daily. - pantoprazole DR (PROTONIX) 40 mg tablet Take 1 tablet by mouth two times a day. - PEG 400-propylene glycol (SYSTANE ULTRA) 0.4-0.3 % ophthalmic solution Use 1 Drop in both eyes three times a day. - atorvastatin (LIPITOR) 20 mg tablet Take 1 tablet by mouth once daily. - ELIQUIS 5 mg tab(s) Take 5 mg by mouth two times a day. - amLODIPine (NORVASC) 10 mg tablet Take 10 mg by mouth once daily. - Blood Pressure Test Kit-Large (Mapidy ARM BP MONITOR) 1 Each once daily. 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] 09/14/2021 History of uterine cancer [Z85.42] 09/14/2021 Bronchiectasis without complication (HCC) [J47.*11/22/2022 Atrial fibrillation, unspecified type (HCC) [I4*04/15/2023 Candidiasis of vagina [B37.31] 05/20/2023 05/20/2023 Diagnosed: 05/20/2023 Chest pain [R07.9] 03/12/2023 07/01/2024 Diagnosed: 05/20/2023 Hyperlipidemia [E78.5] 05/20/2023 Diagnosed: 05/20/2023 Impaired cognition [R41.89] 05/20/2023 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 Normal [facility] CBC W Auto Differential pane l (Bld)on 01-28-2025 Basophils (Bld) [#/Vol] 0.04 10*3/uL Normal <0.11 [facility] Comment on above: Order Comment: Speci men Type: BLOOD SPECIMEN Ordering Facility: [facility] Address: [address] [place] [address] Performed By: #### 5 7021-8 #### [facility] CLIA [id number] [address] [place] [address] [place] Basophils/100 WBC (Bld) 0.4 % Normal [facility] Comment on above: Order Comment: Speci men Type: BLOOD SPECIMEN Ordering Facility: [facility] Address: [address] [place] [address] Performed By: #### 5 7021-8 #### [facility] CLIA [id number] [address] [place] [address] [place] Differential cell count method Nom (Bld) Auto Normal [facility] Comment on above: Order Comment: Speci men Type: BLOOD SPECIMEN Ordering Facility: [facility] Address: [address] [place] [address] Performed By: #### 5 7021-8 #### [facility] CLIA [id number] [address] [place] [address] [place] Eosinophils (Bld) [#/Vol] 0.16 10*3/uL Normal <0.46 [facility] Comment on above: Order Comment: Speci men Type: BLOOD SPECIMEN Ordering Facility: [facility] Address: [address] [place] [address] Performed By: #### 5 7021-8 #### [facility] CLIA [id number] [address] [place] [address] [place] Eosinophils/100 WBC (Bld) 1.7 % Normal [facility] Comment on above: Order Comment: Speci men Type: BLOOD SPECIMEN Ordering Facility: [facility] Address: [address] [place] [address] Performed By: #### 5 7021-8 #### [facility] CLIA [id number] [address] [place] [address] [place] Erythrocyte distribution width (RBC) [Ratio] 15.1 % High 11.5-15.0 [facility] Comment on above: Order Comment: Speci men Type: BLOOD SPECIMEN Ordering Facility: [facility] Address: [address] [place] [address] Performed By: #### 5 7021-8 #### [facility] CLIA [id number] [address] [place] [address] [place] Hematocrit (Bld) [Volume fraction] 32.3 % Low 36.0-46.0 [facility] Comment on above: Order Comment: Speci men Type: BLOOD SPECIMEN Ordering Facility: [facility] Address: [address] [place] [address] Performed By: #### 5 7021-8 #### [facility] CLIA [id number] [address] [place] [address] [place] Hemoglobin (Bld) [Mass/Vol] 10.6 g/dL Low 11.5-15.5 [facility] Comment on above: Order Comment: Speci men Type: BLOOD SPECIMEN Ordering Facility: [facility] Address: [address] [place] [address] Performed By: #### 5 7021-8 #### [facility] CLIA [id number] [address] [place] [address] [place] Immature granulocytes (Bld) [#/Vol] 0.04 10*3/uL Normal <0.10 [facility] Comment on above: Order Comment: Speci men Type: BLOOD SPECIMEN Ordering Facility: [facility] Address: [address] [place] [address] Performed By: #### 5 7021-8 #### [facility] CLIA [id number] [address] [place] [address] [place] Immature granulocytes/100 WBC (Bld) 0.4 % Normal [facility] Comment on above: Order Comment: Speci men Type: BLOOD SPECIMEN Ordering Facility: [facility] Address: [address] [place] [address] Performed By: #### 5 7021-8 #### [facility] CLIA [id number] [address] [place] [address] [place] Lymphocytes (Bld) [#/Vol] 1.21 10*3/uL Normal 1.00-4.00 [facility] Comment on above: Order Comment: Speci men Type: BLOOD SPECIMEN Ordering Facility: [facility] Address: [address] [place] [address] Performed By: #### 5 7021-8 #### [facility] CLIA [id number] [address] [place] [address] [place] Lymphocytes/100 WBC (Bld) 12.8 % Normal [facility] Comment on above: Order Comment: Speci men Type: BLOOD SPECIMEN Ordering Facility: [facility] Address: [address] [place] [address] Performed By: #### 5 7021-8 #### [facility] CLIA [id number] [address] [place] [address] [place] MCH (RBC) [Entitic mass] 30.7 pg Normal 26.0-34.0 [facility] Comment on above: Order Comment: Speci men Type: BLOOD SPECIMEN Ordering Facility: [facility] Address: [address] [place] [address] Performed By: #### 5 7021-8 #### [facility] CLIA [id number] [address] [place] [address] [place] MCHC (RBC) [Mass/Vol] 32.8 g/dL Normal 30.5-36.0 [facility] Comment on above: Order Comment: Speci men Type: BLOOD SPECIMEN Ordering Facility: [facility] Address: [address] [place], [place] [address] Performed By: #### 5 7021-8 #### [facility] CLIA [id number] [address] [place] [address] [place] MCV (RBC) [Entitic vol] 93.6 fL Normal 80.0-100.0 [facility] Comment on above: Order Comment: Speci men Type: BLOOD SPECIMEN Ordering Facility: [facility] Address: [address] [place] [address] Performed By: #### 5 7021-8 #### [facility] CLIA [id number] [address] [place] [address] [place] Monocytes (Bld) [#/Vol] 1.09 10*3/uL High <0.87 [facility] Comment on above: Order Comment: Speci men Type: BLOOD SPECIMEN Ordering Facility: [facility] Address: [address] [place] [address] Performed By: #### 5 7021-8 #### [facility] CLIA [id number] [address] [place] [address] [place] Monocytes/100 WBC (Bld) 11.5 % Normal [facility] Comment on above: Order Comment: Speci men Type: BLOOD SPECIMEN Ordering Facility: [facility] Address: [address] [place] [address] Performed By: #### 5 7021-8 #### [facility] CLIA [id number] [address] [place] [address] [place] Neutrophils (Bld) [#/Vol] 6.94 10*3/uL Normal 1.45-7.50 [facility] Comment on above: Order Comment: Speci men Type: BLOOD SPECIMEN Ordering Facility: [facility] Address: [address] [place] [address] Performed By: #### 5 7021-8 #### [facility] CLIA [id number] [address] [place] [address] [place] Neutrophils/100 WBC (Bld) 73.2 % Normal [facility] Comment on above: Order Comment: Speci men Type: BLOOD SPECIMEN Ordering Facility: [facility] Address: [address] [place] [address] Performed By: #### 5 7021-8 #### [facility] CLIA [id number] [address] [place] [address] [place] Nucleated RBC (Bld) [#/Vol] 10*3/uL Normal <0.01 [facility] Comment on above: Order Comment: Speci men Type: BLOOD SPECIMEN Ordering Facility: [facility] Address: [address] [place] [address] Performed By: #### 5 7021-8 #### [facility] CLIA [id number] [address] [place] [address] [place] Nucleated RBC/100 WBC (Bld) [Ratio] 0.0 /100 WBC Normal [facility] Comment on above: Order Comment: Speci men Type: BLOOD SPECIMEN Ordering Facility: [facility] Address: [address] [place] [address] Performed By: #### 5 7021-8 #### [facility] CLIA [id number] [address] [place] [address] [place] Platelet mean volume (Bld) [Entitic vol] 12.4 fL Normal 9.0-12.7 [facility] Comment on above: Order Comment: Speci men Type: BLOOD SPECIMEN Ordering Facility: [facility] Address: [address] [place] [address] Performed By: #### 5 7021-8 #### [facility] CLIA [id number] [address] [place] [address] [place] Platelets (Bld) [#/Vol] 310 10*3/uL Normal 150-400 [facility] Comment on above: Order Comment: Speci men Type: BLOOD SPECIMEN Ordering Facility: [facility] Address: [address] [place] [address] Performed By: #### 5 7021-8 #### [facility] CLIA [id number] [address] [place] [address] [place] RBC (Bld) [#/Vol] 3.45 10*6/uL Low 3.90-5.20 [facility] Comment on above: Order Comment: Speci men Type: BLOOD SPECIMEN Ordering Facility: [facility] Address: [address] [place] [address] Performed By: #### 5 7021-8 #### [facility] CLIA [id number] [address] [place] [address] [place] WBC (Bld) [#/Vol] 9.48 10*3/uL Normal 3.70-11.00 [facility] Comment on above: Order Comment: Speci men Type: BLOOD SPECIMEN Ordering Facility: [facility] Address: [address] [place] [address] Performed By: #### 5 7021-8 #### [facility] CLIA [id number] [address] [place] [address] [place] CNPClarissa 01-28-2025 CNPN Telephone (HEMAWS) -- TELMA TINEO ([id number]) 1940 F Date Time Provider Department 01/28/25 ADDISON HOLLEY During your visit today, we recorded the following information about you: Addison Holley LISW 01/28/2025 3:10 PM Signed SOCIAL WORK FOLLOW UP NOTE: [facility] Date of service: January 28, 2025 Telma Tineo is being seen for a follow up social work visit. Today's visit includes: sonTimothy TOPICS ADDRESSED: SAM spoke with pt's sonTimothy, this date. SW referred to pt by RNCC d/t needing dental services however having difficulty finding a provider who will accept pt's Medicaid insurance. SW recommended [facility] clinic to pt's son. He reports pt does have an appointment there but that it's not for a while and they were wondering about getting her in somewhere sooner d/t risk of infection while receiving treatment. SW also recommended [facility]. Son reports they have attempted to schedule with them but they will not take Medicaid. Son reports that he will continue looking and is willing to travel to [place] or [place] with pt if needed. Sw to explore any additional options for pt as well. SW completed a brief psychosocial assessment while on the phone with pt's son. Pt on speaker phone in the background. Pt and son report all is going well, no psychosocial concerns aside from needing a dental provider. Pt is well supported by her son and declines any present needs. PLAN: Continue follow up as needed and Referral to community resource F/U APPOINTMENT: PRN Assigned SW listed in Care Team tab: Yes JOSÉ Ferguson-Naveen Allergies As of Date: 01/28/2025 Noted Allergy Reaction PENICILLINS 09/14/2021 10 - Anaphylaxis TETRACYCLINE 09/14/2021 2 - Rash TRAMADOL 07/01/2024 5 - Intolerance Comments: Trembling Date Reviewed: 01/28/2025 Reviewed by: Addison Monreal RN - Fully Assessed Reason for Visit: Social Work Services [507] Prescriptions as of 01/28/2025 - ondansetron (ZOFRAN) 8 mg tablet Take 1 tablet by mouth every 8 hours as needed. - aspirin, enteric coated (ASPIRIN, ENTERIC COATED) 81 mg EC tablet Take 1 tablet by mouth once daily for 3 doses. - sucralfate (CARAFATE) 1 gram tablet Take 1 tablet by mouth four times daily. - insulin NPH-insulin regular 70/30 (NOVOLIN 70/30 U-100 INSULIN) 100 unit/mL suspension Inject 15 Units subcutaneously two times a day with meals. With breakfast and dinner - Insulin Syringe-Needle U-100 0.5 mL 31 gauge x 5/16 1 Each two times a day. - blood sugar diagnostic test strip Use with blood glucose test 2 times daily, Insulin Dep? Yes - Lancets Use with blood glucose test 2 times daily. Insulin Dep? Yes - alcohol swabs Use with blood glucose test 2 times daily. Insulin Dep? Yes - glucose 4 gram chewable tablet Take 4 tablets by mouth as needed for low blood sugar. - Blood-Glucose Meter,Continuous (FREESTYLE TOLU 3 READER) [facility] Use to check blood sugar at least four (4) times daily. - Blood-Glucose Sensor (FREESTYLE TOLU 3 PLUS SENSOR) benjamin Apply new sensor every fifteen (15) days to upper arm. - metoprolol tartrate, short acting, (LOPRESSOR) 50 mg tablet Take 1.5 tablets by mouth two times a day. - losartan (COZAAR) 100 mg tablet Take 1 tablet by mouth once daily. - pantoprazole DR (PROTONIX) 40 mg tablet Take 1 tablet by mouth two times a day. - PEG 400-propylene glycol (SYSTANE ULTRA) 0.4-0.3 % ophthalmic solution Use 1 Drop in both eyes three times a day. - atorvastatin (LIPITOR) 20 mg tablet Take 1 tablet by mouth once daily. - ELIQUIS 5 mg tab(s) Take 5 mg by mouth two times a day. - amLODIPine (NORVASC) 10 mg tablet Take 10 mg by mouth once daily. - Blood Pressure Test Kit-Large (Mapidy ARM BP MONITOR) 1 Each once daily. 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 Normal [facility] Comprehensive metabolic 2000 panelon 01-28-2025 Albumin [Mass/Vol] 3.7 g/dL Low 3.9-4.9 [facility] Comment on above: Order Comment: Dayron stinson Type: BLOOD SPECIMEN Ordering Facility: [facility] Address: [address] [place] [address] Performed By: #### 5 7021-8 #### [facility] CLIA [id number] [address] [place] [address] [place] ALP [Catalytic activity/Vol] 148 U/L High 34-123 [facility] Comment on above: Order Comment: Dayron stinson Type: BLOOD SPECIMEN Ordering Facility: [facility] Address: [address] [place] [address] Performed By: #### 5 7021-8 #### [facility] CLIA [id number] [address] [place] [address] [place] ALT With P-5'-P [Catalytic activity/Vol] 28 U/L Normal 7-38 [facility] Comment on above: Order Comment: Speci men Type: BLOOD SPECIMEN Ordering Facility: [facility] Address: [address] [place] [address] Performed By: #### 5 7021-8 #### [facility] CLIA [id number] [address] [place] [address] [place] Anion gap [Moles/Vol] 13 mmol/L Normal 8-15 [facility] Comment on above: Order Comment: Speci men Type: BLOOD SPECIMEN Ordering Facility: [facility] Address: [address] [place] [address] Performed By: #### 5 7021-8 #### [facility] CLIA [id number] [address] [place] [address] [place] AST With P-5'-P [Catalytic activity/Vol] 26 U/L Normal 13-35 [facility] Comment on above: Order Comment: Speci men Type: BLOOD SPECIMEN Ordering Facility: [facility] Address: [address] [place] [address] Performed By: #### 5 7021-8 #### [facility] CLIA [id number] [address] [place] [address] [place] Bilirubin [Mass/Vol] 2.1 mg/dL High 0.2-1.3 [facility] Comment on above: Order Comment: Speci men Type: BLOOD SPECIMEN Ordering Facility: [facility] Address: [address] [place] [address] Performed By: #### 5 7021-8 #### [facility] CLIA [id number] [address] [place] [address] [place] Calcium [Mass/Vol] 9.4 mg/dL Normal 8.5-10.2 [facility] Comment on above: Order Comment: Speci men Type: BLOOD SPECIMEN Ordering Facility: [facility] Address: [address] [place] [address] Performed By: #### 5 7021-8 #### [facility] CLIA [id number] [address] [place] [address] [place] Chloride [Moles/Vol] 97 mmol/L Low 98-107 [facility] Comment on above: Order Comment: Speci men Type: BLOOD SPECIMEN Ordering Facility: [facility] Address: [address] [place] [address] Performed By: #### 5 7021-8 #### [facility] CLIA [id number] [address] [place] [address] [place] CO2 [Moles/Vol] 21 mmol/L Low 22-30 [facility] Comment on above: Order Comment: Speci men Type: BLOOD SPECIMEN Ordering Facility: [facility] Address: [address] [place] [address] Performed By: #### 5 7021-8 #### [id number] [address] [place] [address] [place] Creatinine [Mass/Vol] 0.69 mg/dL Normal 0.58-0.96 [facility] Comment on above: Order Comment: Speci men Type: BLOOD SPECIMEN Ordering Facility: [facility] Address: [address] [place] [address] Performed By: #### 5 7021-8 #### [facility] [id number] [address] [place] [address] [place] Creatinine and Glomerular filtration rate.predicted panel (S/P/Bld) 86 mL/min/1.73m??? Normal >=60 [facility] Comment on above: Order Comment: Speci men Type: BLOOD SPECIMEN Ordering Facility: [facility] Address: [address] [id number] Result Comment: Kya mated Glomerular Filtration Rate (eGFR) is calculated using the 2020 CKD-EPI creatinine equation. This equation utilizes serum creatinine, sex, and age as parameters. The creatinine assay has traceable calibration to isotope dilution-mass spectrometry. Refer to KDIGO guidelines for clinical interpretation. In patients with unstable renal function, e.g. those with acute kidney injury, the eGFR may not accurately reflect actual GFR. Performed By: #### 5 7021-8 #### [facility] CLIA [id number] [address] [place] [address] [place] Glucose [Mass/Vol] 358 mg/dL High 74-99 [facility] Comment on above: Order Comment: Dayron stinson Type: BLOOD SPECIMEN Ordering Facility: [facility] Address: [address] [place] [address] Result Comment: The [place] Diabetes Association (ADA) provides guidance for cutoff values for fasting glucose and random glucose. The ADA defines fasting as no caloric intake for at least 8 hours. Fasting plasma glucose results between 100 to 125 mg/dL indicate increased risk for diabetes (prediabetes). Fasting plasma glucose results greater than or equal to 126 mg/dL meet the criteria for diagnosis of diabetes. In the absence of unequivocal hyperglycemia, results should be confirmed by repeat testing. In a patient with classic symptoms of hyperglycemia or hyperglycemic crisis, random plasma glucose results greater than or equal to 200 mg/dL meet the criteria for diagnosis of diabetes. Reference: Standards of Medical Care in Diabetes 2016, [place] [employer] Association. Diabetes Care. 2016.39(Suppl 1). Performed By: #### 5 7021-8 #### [facility] CLIA [id number] [address] [place] [address] [place] Potassium [Moles/Vol] 4.3 mmol/L Normal 3.7-5.1 [facility] Comment on above: Order Comment: Dayron stinson Type: BLOOD SPECIMEN Ordering Facility: [facility] Address: [address] [id number] Performed By: #### 5 7021-8 #### [facility] CLIA [id number] [address] [place] [address] [place] Protein [Mass/Vol] 6.6 g/dL Normal 6.3-8.0 [facility] Comment on above: Order Comment: Speci men Type: BLOOD SPECIMEN Ordering Facility: [facility] Address: [address] [place] [address] Performed By: #### 5 7021-8 #### [facility] CLIA [id number] [address] [place] [address] [place] Sodium [Moles/Vol] 131 mmol/L Low 136-144 [facility] Comment on above: Order Comment: Speci men Type: BLOOD SPECIMEN Ordering Facility: [facility] Address: [address] [place] [address] Performed By: #### 5 7021-8 #### [facility] [id number] [address] [place] [address] [place] Urea nitrogen [Mass/Vol] 15 mg/dL Normal 7-21 [facility] Comment on above: Order Comment: Speci men Type: BLOOD SPECIMEN Ordering Facility: [facility] Address: [address] [place] [address] Performed By: #### 5 7021-8 #### [facility] CLIA [id number] [address] [place] [address] [place] ANES POSTPROC EVALon 025 ANES POSTPROC EVAL Normal [facility] CNPNon 01-26-2025 CNPN Telephone (FAMPWS) -- TELMA TINEO ([id number]) 1940 F Date Time Provider Department 01/26/25 HENOK MARTINEZ During your visit today, we recorded the following information about you: Johnna Medina LPN 01/26/2025 10:18 AM Signed Pt's son calls to report that since pt has gotten out of the hospital she has had some constipation. Currently pt feels like she has to have a bm but cannot get anything to come out. Pt is uncomfortable. Son is asking if pt can take something to help with constipation. Pt has magnesium citrate currently and is asking if that is ok to take. Please review and advise. PETE Deleon Lindsey, MA 01/26/2025 10:49 AM Signed Henok Martinez MD [facility] [place] [facility]2 minutes ago (10:40 AM) Any pain or vomiting. What was last bm? Are they using anything at all right now? Li Allison MA 01/26/2025 10:49 AM Signed Spoke with Timothy, patients son. Telma denies any pain. States it's more of a discomfort from being backed up. She feels like she has to have a BM but very little is coming out. Having small BM's every few hrs according to her son. Refers to small pebble like stool. Telma refers to little MANDM's. Brown in color. Denies any bloody or black stool. Denies any vomiting. Has not used anything OTC for this as of yet. Advise. MAL Miller [place], MA 01/26/2025 10:59 AM Signed Henok Martinez MD [facility] [place] [facility]4 minutes ago (10:52 AM) Try miralax daily otc first. Call if no results in 2 Days or if anything worsens Li Allison MA 01/26/2025 10:59 AM Signed Detailed message left for Timothy informing him to have Telma try otc miralax for 2 days and to call with worsening symptoms. Advised him to call back with any questions or concerns. Li Allison MA Allergies As of Date: 01/26/2025 Noted Allergy Reaction PENICILLINS 09/14/2021 10 - Anaphylaxis TETRACYCLINE 09/14/2021 2 - Rash TRAMADOL 07/01/2024 5 - Intolerance Comments: Trembling Date Reviewed: 01/25/2025 Reviewed by: Carl Ortiz MA - Fully Assessed Reason for Visit: Constipation [25] Prescriptions as of 01/26/2025 - ondansetron (ZOFRAN) 8 mg tablet Take 1 tablet by mouth every 8 hours as needed. - aspirin, enteric coated (ASPIRIN, ENTERIC COATED) 81 mg EC tablet Take 1 tablet by mouth once daily for 3 doses. - sucralfate (CARAFATE) 1 gram tablet Take 1 tablet by mouth four times daily. - insulin NPH-insulin regular 70/30 (NOVOLIN 70/30 U-100 INSULIN) 100 unit/mL suspension Inject 15 Units subcutaneously two times a day with meals. With breakfast and dinner - Insulin Syringe-Needle U-100 0.5 mL 31 gauge x 5/16 1 Each two times a day. - blood sugar diagnostic test strip Use with blood glucose test 2 times daily, Insulin Dep? Yes - Lancets Use with blood glucose test 2 times daily. Insulin Dep? Yes - alcohol swabs Use with blood glucose test 2 times daily. Insulin Dep? Yes - glucose 4 gram chewable tablet Take 4 tablets by mouth as needed for low blood sugar. - Blood-Glucose Meter,Continuous (FREESTYLE TOLU 3 READER) [facility] Use to check blood sugar at least four (4) times daily. - Blood-Glucose Sensor (FREESTYLE TOLU 3 PLUS SENSOR) benjamin Apply new sensor every fifteen (15) days to upper arm. - metoprolol tartrate, short acting, (LOPRESSOR) 50 mg tablet Take 1.5 tablets by mouth two times a day. - losartan (COZAAR) 100 mg tablet Take 1 tablet by mouth once daily. - pantoprazole DR (PROTONIX) 40 mg tablet Take 1 tablet by mouth two times a day. - PEG 400-propylene glycol (SYSTANE ULTRA) 0.4-0.3 % ophthalmic solution Use 1 Drop in both eyes three times a day. - atorvastatin (LIPITOR) 20 mg tablet Take 1 tablet by mouth once daily. - ELIQUIS 5 mg tab(s) Take 5 mg by mouth two times a day. - amLODIPine (NORVASC) 10 mg tablet Take 10 mg by mouth once daily. - Blood Pressure Test Kit-Large (Mapidy ARM BP MONITOR) 1 Each once daily. 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 Normal [facility] Bilirub Conj SerPl-mCncon Bilirubin.conjugated [Mass/Vol] 1.9 mg/dL High <0.3 [facility] Comment on above: Order Comment: Speci men Type: BLOOD SPECIMENOrdering Facility: [facility] Address: [address] [place] [address] Performed By: #### 2 4323-8, 32444-0 ####[facility]ITALKush [id number] [place] [id number] [place] CBC W Auto Differential pane l (Bld)on 01-25-2025 Basophils (Bld) [#/Vol] 0.05 10*3/uL [facility] Basophils/100 WBC (Bld) 0.8 % [facility] Differential cell count method Nom (Bld) Auto [facility] Eosinophils (Bld) [#/Vol] 0.11 10*3/uL [facility] Eosinophils/100 WBC (Bld) 1.7 % [facility] Erythrocyte distribution width (RBC) [Ratio] 15.5 % High 11.5 - 15.0 % [facility] Hematocrit (Bld) [Volume fraction] 33.1 % Low 36.0 - 46.0 % [facility] Hemoglobin (Bld) [Mass/Vol] 10.8 g/dL Low 11.5 - 15.5 g/dL [facility] Immature granulocytes (Bld) [#/Vol] 0.04 10*3/uL [facility] Immature granulocytes/100 WBC (Bld) 0.6 % [facility] Interpretation and review of laboratory results Abnormal [facility] Lymphocytes (Bld) [#/Vol] 0.97 10*3/uL Low [facility] Lymphocytes/100 WBC (Bld) 14.7 % [facility] MCH (RBC) [Entitic mass] 30.9 pg 26.0 - 34.0 pg [facility] MCHC (RBC) [Mass/Vol] 32.6 g/dL 30.5 - 36.0 g/dL [facility] MCV (RBC) [Entitic vol] 94.8 fL 80.0 - 100.0 fL [facility] Monocytes (Bld) [#/Vol] 0.96 10*3/uL High [facility] Monocytes/100 WBC (Bld) 14.5 % [facility] Neutrophils (Bld) [#/Vol] 4.48 10*3/uL [facility] Neutrophils/100 WBC (Bld) 67.7 % [facility] Nucleated RBC (Bld) [#/Vol] [facility] Nucleated RBC/100 WBC (Bld) [Ratio] 0 % /100 WBC [facility] Platelet mean volume (Bld) [Entitic vol] 12.4 fL 9.0 - 12.7 fL [facility] Platelets (Bld) [#/Vol] 274 10*3/uL [facility] RBC (Bld) [#/Vol] 3.49 10*6/uL Low 3.90 - 5.2 0 m/uL [facility] WBC (Bld) [#/Vol] 6.61 10*3/uL [facility] Basophils (Bld) [#/Vol] 0.05 10*3/uL Normal <0.11 [facility] Comment on above: Order Comment: Speci men Type: BLOOD SPECIMEN Ordering Facility: [facility] Address: [address] [place] [address] Performed By: #### 5 7021-8 #### [facility] CLIA [id number] [address] [place] [address] [place] Basophils/100 WBC (Bld) 0.8 % Normal [facility] Comment on above: Order Comment: Speci men Type: BLOOD SPECIMEN Ordering Facility: [facility] Address: [address] [place] [address] Performed By: #### 5 7021-8 #### [facility] CLIA [id number] [address] [place] [address] [place] Differential cell count method Nom (Bld) Auto Normal [facility] Comment on above: Order Comment: Speci men Type: BLOOD SPECIMEN Ordering Facility: [facility] Address: [address] [place] [address] Performed By: #### 5 7021-8 #### [facility] CLIA [id number] [address] [place] [address] [place] Eosinophils (Bld) [#/Vol] 0.11 10*3/uL Normal <0.46 [facility] Comment on above: Order Comment: Speci men Type: BLOOD SPECIMEN Ordering Facility: [facility] Address: [address] [place] [address] Performed By: #### 5 7021-8 #### [facility] CLIA [id number] [address] [place] [address] [place] Eosinophils/100 WBC (Bld) 1.7 % Normal [facility] Comment on above: Order Comment: Speci men Type: BLOOD SPECIMEN Ordering Facility: [facility] Address: [address] [place] [address] Performed By: #### 5 7021-8 #### [facility] CLIA [id number] [address] [place] [address] [place] Erythrocyte distribution width (RBC) [Ratio] 15.5 % High 11.5-15.0 [facility] Comment on above: Order Comment: Speci men Type: BLOOD SPECIMEN Ordering Facility: [facility] Address: [address] [place] [address] Performed By: #### 5 7021-8 #### [facility] CLIA [id number] [address] [place] [address] [place] Hematocrit (Bld) [Volume fraction] 33.1 % Low 36.0-46.0 [facility] Comment on above: Order Comment: Speci men Type: BLOOD SPECIMEN Ordering Facility: [facility] Address: [address] [place] [address] Performed By: #### 5 7021-8 #### [facility] [id number] [address] [place] [address] [place] Hemoglobin (Bld) [Mass/Vol] 10.8 g/dL Low 11.5-15.5 [facility] Comment on above: Order Comment: Speci men Type: BLOOD SPECIMEN Ordering Facility: [facility] Address: [address] [place] [address] Performed By: #### 5 7021-8 #### [facility] [id number] [address] [place] [address] [place] Immature granulocytes (Bld) [#/Vol] 0.04 10*3/uL Normal <0.10 [facility] Comment on above: Order Comment: Speci men Type: BLOOD SPECIMEN Ordering Facility: [facility] Address: [address] [place] [address] Performed By: #### 5 7021-8 #### [facility] [id number] [address] [place] [address] [place] Immature granulocytes/100 WBC (Bld) 0.6 % Normal [facility] Comment on above: Order Comment: Speci men Type: BLOOD SPECIMEN Ordering Facility: [facility] Address: [address] [place] [address] Performed By: #### 5 7021-8 #### [facility] CLIA [id number] [address] [place] [address] [place] Lymphocytes (Bld) [#/Vol] 0.97 10*3/uL Low 1.00-4.00 [facility] Comment on above: Order Comment: Speci men Type: BLOOD SPECIMEN Ordering Facility: [facility] Address: [address] [place] [address] Performed By: #### 5 7021-8 #### [id number] [address] [place] [address] [place] Lymphocytes/100 WBC (Bld) 14.7 % Normal [facility] Comment on above: Order Comment: Speci men Type: BLOOD SPECIMEN Ordering Facility: [facility] Address: [address] [place] [address] Performed By: #### 5 7021-8 #### [facility] [id number] [address] [place] [address] [place] MCH (RBC) [Entitic mass] 30.9 pg Normal 26.0-34.0 [facility] Comment on above: Order Comment: Speci men Type: BLOOD SPECIMEN Ordering Facility: [facility] Address: [address] [place] [address] Performed By: #### 5 7021-8 #### [facility] CLIA [id number] [address] [place] [address] [place] MCHC (RBC) [Mass/Vol] 32.6 g/dL Normal 30.5-36.0 [facility] Comment on above: Order Comment: Speci men Type: BLOOD SPECIMEN Ordering Facility: [facility] Address: [address] [place] [address] Performed By: #### 5 7021-8 #### [facility] CLIA [id number] [address] [place] [address] [place] MCV (RBC) [Entitic vol] 94.8 fL Normal 80.0-100.0 [facility] Comment on above: Order Comment: Speci men Type: BLOOD SPECIMEN Ordering Facility: [facility] Address: [facility] [place] [address] Performed By: #### 5 7021-8 #### [facility] CLIA [id number] [address] [place] [address] [place] Monocytes (Bld) [#/Vol] 0.96 10*3/uL High <0.87 [facility] Comment on above: Order Comment: Speci men Type: BLOOD SPECIMEN Ordering Facility: [facility] Address: [address] [place], [place] [address] Performed By: #### 5 7021-8 #### [facility] CLIA [id number] [address] [place] [address] [place] Monocytes/100 WBC (Bld) 14.5 % Normal [facility] Comment on above: Order Comment: Speci men Type: BLOOD SPECIMEN Ordering Facility: [facility] Address: [address] [place] [address] Performed By: #### 5 7021-8 #### [facility] CLIA [id number] [address] [place] [address] [place] Neutrophils (Bld) [#/Vol] 4.48 10*3/uL Normal 1.45-7.50 [facility] Comment on above: Order Comment: Speci men Type: BLOOD SPECIMEN Ordering Facility: [facility] Address: [address] [place] [address] Performed By: #### 5 7021-8 #### [facility] CLIA [id number] [address] [place] [address] [place] Neutrophils/100 WBC (Bld) 67.7 % Normal [facility] Comment on above: Order Comment: Speci men Type: BLOOD SPECIMEN Ordering Facility: [facility] Address: [address] [place] [address] Performed By: #### 5 7021-8 #### [facility] CLIA [id number] [address] [place] [address] [place] Nucleated RBC (Bld) [#/Vol] 10*3/uL Normal <0.01 [facility] Comment on above: Order Comment: Speci men Type: BLOOD SPECIMEN Ordering Facility: [facility] Address: [address] [place] [address] Performed By: #### 5 7021-8 #### [facility] CLIA [id number] [address] [place] [address] [place] Nucleated RBC/100 WBC (Bld) [Ratio] 0.0 /100 WBC Normal [facility] Comment on above: Order Comment: Speci men Type: BLOOD SPECIMEN Ordering Facility: [facility] Address: [address] [place] [address] Performed By: #### 5 7021-8 #### [facility] CLIA [id number] [address] [place] [address] [place] Platelet mean volume (Bld) [Entitic vol] 12.4 fL Normal 9.0-12.7 [facility] Comment on above: Order Comment: Speci men Type: BLOOD SPECIMEN Ordering Facility: [facility] Address: [address] [place] [address] Performed By: #### 5 7021-8 #### [facility] CLIA [id number] [address] [place] [address] [place] Platelets (Bld) [#/Vol] 274 10*3/uL Normal 150-400 [facility] Comment on above: Order Comment: Speci men Type: BLOOD SPECIMEN Ordering Facility: [facility] Address: [address] [place], [place] [address] Performed By: #### 5 7021-8 #### [facility] [id number] [address] [place] [address] [place] RBC (Bld) [#/Vol] 3.49 10*6/uL Low 3.90-5.20 [facility] Comment on above: Order Comment: Speci men Type: BLOOD SPECIMEN Ordering Facility: [facility] Address: [address] [place] [address] Performed By: #### 5 7021-8 #### [facility] [id number] [address] [place] [address] [place] WBC (Bld) [#/Vol] 6.61 10*3/uL Normal 3.70-11.00 [facility] Comment on above: Order Comment: Speci men Type: BLOOD SPECIMEN Ordering Facility: [facility] Address: [address] [place], [place] [address] Performed By: #### 5 7021-8 #### [facility] [id number] [address] [place] [address] [place] CNOVSPon 01-25-2025 CNOVS Visit (SP) Office (H EMAWS) -- TELMA TINEO ([id number]) 1940 F Date Time Provider Department 01/25/25 8:30 AM JUAN MIGUEL YUSUF During your visit today, we recorded the following information about you: Temperature Pulse Blood pressure Weight 99 degrees 110/minute 133/74 68 kg Height 1.525 m Juan Miguel Yusuf MD 01/25/2025 11:44 AM Signed HISTORY OF PRESENT ILLNESS: Telma Tineo is a 84 year old female presented with painless jaundice, admitted initially at [facility], transferred for further work up at [facility]. Saw hepatobiliary surgery there, noted pancreatic mass. She underwent CBD stenting, and biopsy of mass at head of pancreas. Dx adenocarcinoma. Staging otherwise negative. Per surgery she is not currently resectable, they recommend neoadjuvant chemotherapy, followed by re assessment for surgery. Met with patient and her family today. She is a very active and functional lady, co morbidities noted, but well managed. CLINICAL IMPRESSION: Borderline rnresectable pancreatic adenocarcinoma RECOMMENDATION/PLAN: 1. Plan preop NAC with gemcitabine and abraxane. Discussed also FolFIrinOx, but concerns about tolerability patient prefers gemcitabine abraxane regimen. 2. Info given, plan start within the week. 3. Plan scans after 2 cycles. Written and verbal health teaching given to patient, patient verbalizes understanding and agrees with treatment plan. PAST MEDICAL HISTORY Diagnosis Date Allergies Lundberg's palsy Bronchiectasis (HCC) Gastroesophageal reflux disease without esophagitis History of CVA (cerebrovascular accident) Mild intermittent asthma without complication Primary hypertension Type 2 diabetes mellitus without complication, without long-term current use of insulin (HCC) PAST SURGICAL HISTORY Procedure Laterality Date APPENDECTOMY CATARACT EXTRACTION HX Bilateral COLONOSCOPY SCREENING 10/04/2022 no specimens collected, No further screening colonoscopies required HEMORRHOIDECTOMY X's HYSTERECTOMY HX without bso PAST SURGICAL HISTORY OF ? repair of cystocele RHINOPLASTY N/A SLING OPER STRES INCONTINENCE TONSILLECTOMY AND ADENOIDECTOMY FAMILY HISTORY Problem Relation Age of Onset Pancreatic Cancer Mother Lung Cancer Father No Known Problems Sister No Known Problems Sister No Known Problems Sister No Known Problems Sister No Known Problems Sister Cancer Brother No Known Problems Brother Cancer Brother No Known Problems Brother Cancer Brother Heart disease Son No Ocular Disease No Family History Social History Tobacco Use Smoking status: Former Smokeless tobacco: Never Tobacco comments: Light smoker for 7 years in early adulthood Vaping Use Vaping status: Never Used Substance Use Topics Alcohol use: Not Currently Drug use: Never ALLERGIES: ALLERGIES Allergen Reactions Penicillins Anaphylaxis Tetracycline Rash Tramadol Intolerance Trembling CURRENT OUTPATIENT MEDICATIONS: sucralfate (CARAFATE) 1 gram tablet Take 1 tablet by mouth four times daily. insulin NPH-insulin regular 70/30 (NOVOLIN 70/30 U-100 INSULIN) 100 unit/mL suspension Inject 15 Units subcutaneously two times a day with meals. With breakfast and dinner glucose 4 gram chewable tablet Take 4 tablets by mouth as needed for low blood sugar. metoprolol tartrate, short acting, (LOPRESSOR) 50 mg tablet Take 1.5 tablets by mouth two times a day. (Patient taking differently: Take 50 mg by mouth once daily.) losartan (COZAAR) 100 mg tablet Take 1 tablet by mouth once daily. pantoprazole DR (PROTONIX) 40 mg tablet Take 1 tablet by mouth two times a day. (Patient taking differently: Take 1 tablet by mouth two times a day.) PEG 400-propylene glycol (SYSTANE ULTRA) 0.4-0.3 % ophthalmic solution Use 1 Drop in both eyes three times a day. atorvastatin (LIPITOR) 20 mg tablet Take 1 tablet by mouth once daily. amLODIPine (NORVASC) 10 mg tablet Take 10 mg by mouth once daily. aspirin, enteric coated (ASPIRIN, ENTERIC COATED) 81 mg EC tablet Take 1 tablet by mouth once daily for 3 doses. (Patient not taking: Reported on 01/25/2025) Insulin Syringe-Needle U-100 0.5 mL 31 gauge x /16 1 Each two times a day. blood sugar diagnostic test strip Use with blood glucose test 2 times daily, Insulin Dep? Yes Lancets Use with blood glucose test 2 times daily. Insulin Dep? Yes alcohol swabs Use with blood glucose test 2 times daily. Insulin Dep? Yes Blood-Glucose Meter,Continuous (FREESTYLE TOLU 3 READER) [facility] Use to check blood sugar at least four (4) times daily. Blood-Glucose Sensor (FREESTYLE TOLU 3 PLUS SENSOR) benjamin Apply new sensor every fifteen (15) days to upper arm. [Paused] ELIQUIS 5 mg tab(s) Take 5 mg by mouth two times a day. Blood Pressure Test Kit-Large (SURELIFE ARM BP MONITOR) 1 Each once daily. REVIEW OF SYSTEMS: GE (more content not included)... Normal [facility] Lenin 01-25-2025 IMMANUEL Telephone (HEMMARY) -- TELMA TINEO ([id number]) 1940 F Date Time Provider Department 01/25/25 MARIA ISABEL SILVERIO During your visit today, we recorded the following information about you: Maria Isabel Silverio RN 01/25/2025 9:12 AM Signed Met with patient and introduced myself. Patient was given a My [employer] binder with chemocare information, office contact information, thermometer, and additional chemotherapy resource booklets. Patient aware this nurse will review on scheduled appointment date. Elaina Silverio RN Allergies As of Date: 01/25/2025 Noted Allergy Reaction PENICILLINS 09/14/2021 10 - Anaphylaxis TETRACYCLINE 09/14/2021 2 - Rash TRAMADOL 07/01/2024 5 - Intolerance Comments: Trembling Date Reviewed: 01/25/2025 Reviewed by: Carl Ortiz MA - Fully Assessed Reason for Visit: Care Coordination [4211] Cmt: Introduction Prescriptions as of 01/25/2025 - aspirin, enteric coated (ASPIRIN, ENTERIC COATED) 81 mg EC tablet Take 1 tablet by mouth once daily for 3 doses. - sucralfate (CARAFATE) 1 gram tablet Take 1 tablet by mouth four times daily. - insulin NPH-insulin regular 70/30 (NOVOLIN 70/30 U-100 INSULIN) 100 unit/mL suspension Inject 15 Units subcutaneously two times a day with meals. With breakfast and dinner - Insulin Syringe-Needle U-100 0.5 mL 31 gauge x 5/16 1 Each two times a day. - blood sugar diagnostic test strip Use with blood glucose test 2 times daily, Insulin Dep? Yes - Lancets Use with blood glucose test 2 times daily. Insulin Dep? Yes - alcohol swabs Use with blood glucose test 2 times daily. Insulin Dep? Yes - glucose 4 gram chewable tablet Take 4 tablets by mouth as needed for low blood sugar. - Blood-Glucose Meter,Continuous (FREESTYLE TOLU 3 READER) [facility] Use to check blood sugar at least four (4) times daily. - Blood-Glucose Sensor (FREESTYLE TOLU 3 PLUS SENSOR) benjamin Apply new sensor every fifteen (15) days to upper arm. - metoprolol tartrate, short acting, (LOPRESSOR) 50 mg tablet Take 1.5 tablets by mouth two times a day. - losartan (COZAAR) 100 mg tablet Take 1 tablet by mouth once daily. - pantoprazole DR (PROTONIX) 40 mg tablet Take 1 tablet by mouth two times a day. - PEG 400-propylene glycol (SYSTANE ULTRA) 0.4-0.3 % ophthalmic solution Use 1 Drop in both eyes three times a day. - atorvastatin (LIPITOR) 20 mg tablet Take 1 tablet by mouth once daily. - ELIQUIS 5 mg tab(s) (Mar Hold) Take 5 mg by mouth two times a day. - amLODIPine (NORVASC) 10 mg tablet Take 10 mg by mouth once daily. - Blood Pressure Test Kit-Large (Mapidy ARM BP MONITOR) 1 Each once daily. 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] 09/14/2021 History of uterine cancer [Z85.42] 09/14/2021 Bronchiectasis without complication (HCC) [J47.*11/22/2022 Atrial fibrillation, unspecified type (HCC) [I4*04/15/2023 Candidiasis of vagina [B37.31] 05/20/2023 05/20/2023 Diagnosed: 05/20/2023 Chest pain [R07.9] 03/12/2023 07/01/2024 Diagnosed: 05/20/2023 Hyperlipidemia [E78.5] 05/20/2023 Diagnosed: 05/20/2023 Impaired cognition [R41.89] 05/20/2023 Diagnosed: 05/20/2023 assisted current use of anticoagulant therapy *05/20/2023 Diagnosed: 05/20/2023 Neck pain [M54.2] 05/20/2023 05/20/2023 Diagnosed: 05/20/2023 Cerebrovascular accident (CVA) (HCC) [I63.9] 05/20/2023 Diagnosed: 05/20/2023 Jaundice [R17] 01/15/2025 Pancreatic mass [K86.89] 01/15/2025 Type 2 diabetes mellitus with hyperglycemia (HC*01/18/2025 Hyperglycemia [R73.9] 01/18/2025 Elevated hemoglobin A1c [R73.09] 01/18/2025 Obstructive jaundice [K83.1] 01/18/2025 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) [C*01/21/2025 Encounter Status:Closed by MARIA ISABEL SILVERIO on 01/25/25 [facility] Telephone ([facility]) -- TELMA TINEO ([id number]) 1940 F Date Time Provider Department 01/25/25 JUAN MIGUEL YUSUF During your visit today, we recorded the following information about you: Rachel Bañuelos 01/25/2025 9:15 AM Signed Labs today-DONE Chemo Education-SCHEDULED 01/27 Start Glasscock/Abraxane, straight back to start with CBC (3wks on/1 wk off) CBC with each treatment CBC/CMP/OV with each Q 28day cycle Start treatment this week if possible per Nasim Sawant 01/25/2025 3:27 PM Signed This has been scheduled as directed Allergies As of Date: 01/25/2025 Noted Allergy Reaction PENICILLINS 09/14/2021 10 - Anaphylaxis TETRACYCLINE 09/14/2021 2 - Rash TRAMADOL 07/01/2024 5 - Intolerance Comments: Trembling Date Reviewed: 01/25/2025 Reviewed by: Carl Ortiz MA - Fully Assessed Reason for Visit: avs 01/25 [Other] Prescriptions as of 01/25/2025 - ondansetron (ZOFRAN) 8 mg tablet Take 1 tablet by mouth every 8 hours as needed. - aspirin, enteric coated (ASPIRIN, ENTERIC COATED) 81 mg EC tablet Take 1 tablet by mouth once daily for 3 doses. - sucralfate (CARAFATE) 1 gram tablet Take 1 tablet by mouth four times daily. - insulin NPH-insulin regular 70/30 (NOVOLIN 70/30 U-100 INSULIN) 100 unit/mL suspension Inject 15 Units subcutaneously two times a day with meals. With breakfast and dinner - Insulin Syringe-Needle U-100 0.5 mL 31 gauge x 5/16 1 Each two times a day. - blood sugar diagnostic test strip Use with blood glucose test 2 times daily, Insulin Dep? Yes - Lancets Use with blood glucose test 2 times daily. Insulin Dep? Yes - alcohol swabs Use with blood glucose test 2 times daily. Insulin Dep? Yes - glucose 4 gram chewable tablet Take 4 tablets by mouth as needed for low blood sugar. - Blood-Glucose Meter,Continuous (FREESTYLE TOLU 3 READER) [facility] Use to check blood sugar at least four (4) times daily. - Blood-Glucose Sensor (FREESTYLE TOLU 3 PLUS SENSOR) benjamin Apply new sensor every fifteen (15) days to upper arm. - metoprolol tartrate, short acting, (LOPRESSOR) 50 mg tablet Take 1.5 tablets by mouth two times a day. - losartan (COZAAR) 100 mg tablet Take 1 tablet by mouth once daily. - pantoprazole DR (PROTONIX) 40 mg tablet Take 1 tablet by mouth two times a day. - PEG 400-propylene glycol (SYSTANE ULTRA) 0.4-0.3 % ophthalmic solution Use 1 Drop in both eyes three times a day. - atorvastatin (LIPITOR) 20 mg tablet Take 1 tablet by mouth once daily. - ELIQUIS 5 mg tab(s) (Mar Hold) Take 5 mg by mouth two times a day. - amLODIPine (NORVASC) 10 mg tablet Take 10 mg by mouth once daily. - Blood Pressure Test Kit-Large (Mapidy ARM BP MONITOR) 1 Each once daily. 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] 09/14/2021 History of uterine cancer [Z85.42] 09/14/2021 Bronchiectasis without complication (HCC) [J47.*11/22/2022 Atrial fibrillation, unspecified type (HCC) [I4*04/15/2023 Candidiasis of vagina [B37.31] 05/20/2023 05/20/2023 Diagnosed: 05/20/2023 Chest pain [R07.9] 03/12/2023 07/01/2024 Diagnosed: 05/20/2023 Hyperlipidemia [E78.5] 05/20/2023 Diagnosed: 05/20/2023 Impaired cognition [R41.89] 05/20/2023 Diagnosed: 05/20/2023 assisted current use of anticoagulant therapy *05/20/2023 Diagnosed: 05/20/2023 Neck pain [M54.2] 05/20/2023 05/20/2023 Diagnosed: 05/20/2023 Cerebrovascular accident (CVA) (HCC) [I63.9] 05/20/2023 Diagnosed: 05/20/2023 Jaundice [R17] 01/15/2025 Pancreatic mass [K86.89] 01/15/2025 Type 2 diabetes mellitus with hyperglycemia (HC*01/18/2025 Hyperglycemia [R73.9] 01/18/2025 Elevated hemoglobin A1c [R73.09] 01/18/2025 Obstructive jaundice [K83.1] 01/18/2025 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) [C*01/21/2025 Encounter Status:Closed by RACHEL BAÑUELOS on 01/25/25 Normal [facility] Comprehensive metabolic 2000 panelOrdered By: Angelia Paez on 01-25-2025 Albumin [Mass/Vol] 3.8 g/dL Low 3.9 - 4.9 g/dL [facility] ALP [Catalytic activity/Vol] 170 U/L High 34 - 123 U/L [facility] ALT [Catalytic activity/Vol] 37 U/L 7 - 38 U/L [facility] Anion gap [Moles/Vol] 10 mmol/L 8 - 15 mmol/L [facility] AST [Catalytic activity/Vol] 28 U/L 13 - 35 U/L [facility] Bilirubin [Mass/Vol] 2.6 mg/dL High 0.2 - 1 .3 mg/dL [facility] Calcium [Mass/Vol] 9.4 mg/dL 8.5 - 10. 2 mg/dL [facility] Chloride [Moles/Vol] 101 mmol/L 98 - 10 7 mmol/L [facility] CO2 [Moles/Vol] 21 mmol/L Low 22 - 30 mmol/L [facility] Creatinine [Mass/Vol] 0.58 mg/dL 0.58 - 0.96 mg/dL [facility] GFR/1.73 sq M.predicted among non-blacks MDRD (S/P/Bld) [Vol rate/Area] 89 mL/min/{1.73_m2} - PINF [facility] Comment on above: Estimated Glomerular Filtration Rate (eGFR) is calculated using the 2020 CKD-EPI creatinine equation. This equation utilizes serum creatinine, sex, and age as parameters. The creatinine assay has traceable calibration to isotope dilution-mass spectrometry. Refer to KDIGO guidelines for clinical interpretation. In patients with unstable renal function, e.g. those with acute kidney injury, the eGFR may not accurately reflect actual GFR. Glucose [Mass/Vol] 325 mg/dL High 74 - 99 mg/dL [facility] Comment on above: The [place] Diabete s Association (ADA) provides guidance for cutoff values for fasting glucose and random glucose. The ADA defines fasting as no caloric intake for at least 8 hours. Fasting plasma glucose results between 100 to 125 mg/dL indicate increased risk for diabetes (prediabetes). Fasting plasma glucose results greater than or equal to 126 mg/dL meet the criteria for diagnosis of diabetes. In the absence of unequivocal hyperglycemia, results should be confirmed by repeat testing. In a patient with classic symptoms of hyperglycemia or hyperglycemic crisis, random plasma glucose results greater than or equal to 200 mg/dL meet the criteria for diagnosis of diabetes. Reference: Standards of Medical Care in Diabetes 2016, [place] [employer] Association. Diabetes Care. 2016.39(Suppl 1). Interpretation and review of laboratory results Abnormal [facility] Potassium [Moles/Vol] 4.5 mmol/L 3.7 - 5.1 mmol/L [facility] Protein [Mass/Vol] 6.9 g/dL 6.3 - 8.0 g/dL [facility] Sodium [Moles/Vol] 132 mmol/L Low 136 - 144 mmol/L [facility] Urea nitrogen [Mass/Vol] 11 mg/dL 7 - 21 mg/dL [facility] Comprehensive metabolic 2000 panelon 01-25-2025 Albumin [Mass/Vol] 3.8 g/dL Low 3.9-4.9 [facility] Comment on above: Order Comment: Speci men Type: BLOOD SPECIMENOrdering Facility: [facility] Address: [address] [place] [address] Performed By: #### 2 4323-8, 64692-0 ####[facility] MILLTOWSANDRALIA [id number] [place] [address] [place] ALP [Catalytic activity/Vol] 170 U/L High 34-123 [facility] Comment on above: Order Comment: Speci men Type: BLOOD SPECIMENOrdering Facility: [facility] Address: [address] [place] [address] Performed By: #### 2 4323-8, 57264-9 ####[facility] HOSPITALWSANDRALIA [id number] [place] [address] [place] ALT [Catalytic activity/Vol] 37 U/L Normal 7-38 [facility] Comment on above: Order Comment: Speci men Type: BLOOD SPECIMENOrdering Facility: [facility] Address: [address] [place] [address] Performed By: #### 2 4323-8, 97805-2 ####[facility] NORTHSANDRALIA [id number] [place] [address] [place] Anion gap [Moles/Vol] 10 mmol/L Normal 8-15 [facility] Comment on above: Order Comment: Speci men Type: BLOOD SPECIMENOrdering Facility: [facility] Address: [address] [place] [address] Performed By: #### 2 4323-8, 27556-0 ####[facility] HOSPITALWNCLIA [id number] [place] [address] [place] AST [Catalytic activity/Vol] 28 U/L Normal 13-35 [facility] Comment on above: Order Comment: Speci men Type: BLOOD SPECIMENOrdering Facility: [facility] Address: [address] [place], [place] [address] Performed By: #### 2 4323-8, 60247-3 ####[facility]PITALLIA [id number] [place] [address] [place] Bilirubin [Mass/Vol] 2.6 mg/dL High 0.2-1.3 [facility] Comment on above: Order Comment: Speci men Type: BLOOD SPECIMENOrdering Facility: [facility] Address: [address] [place] [address] Performed By: #### 2 4323-8, 30543-5 ####[facility] NORTHNCKush [id number] [place] [address] [place] Calcium [Mass/Vol] 9.4 mg/dL Normal 8.5-10.2 [facility] Comment on above: Order Comment: Speci men Type: BLOOD SPECIMENOrdering Facility: [facility] Address: [address] [place] [address] Performed By: #### 2 4323-8, 16852-3 ####[facility] HOSPITALMURIELA [id number] [place] [address] [place] Chloride [Moles/Vol] 101 mmol/L Normal 98-107 [facility] Comment on above: Order Comment: Speci men Type: BLOOD SPECIMENOrdering Facility: [facility] Address: [address] [place] [address] Performed By: #### 2 4323-8, 46306-7 ####[facility] [id number] [place] [address] [place] CO2 [Moles/Vol] 21 mmol/L Low 22-30 [facility] Comment on above: Order Comment: Speci men Type: BLOOD SPECIMENOrdering Facility: [facility] Address: [address] [place] [address] Performed By: #### 2 4323-8, 84483-5 ####[facility] REJI KHLOEAMAGONNCLIA [id number] [place] [address] [place] Creatinine [Mass/Vol] 0.58 mg/dL Normal 0.58-0.96 [facility] Comment on above: Order Comment: Speci men Type: BLOOD SPECIMENOrdering Facility: [facility] Address: [address] [place] [address] Performed By: #### 2 4323-8, 58396-1 ####[facility]THNCLIA [id number] [place] [address] [place] Creatinine and Glomerular filtration rate.predicted panel (S/P/Bld) 89 mL/min/1.73m??? Normal >=60 [facility] Comment on above: Order Comment: Speci men Type: BLOOD SPECIMENOrdering Facility: [facility] Address: [address] [place] [address] Result Comment: Kya mated Glomerular Filtration Rate (eGFR) is calculated using the 2020 CKD-EPI creatinine equation. This equation utilizes serum creatinine, sex, and age as parameters. The creatinine assay has traceable calibration to isotope dilution-mass spectrometry. Refer to KDIGO guidelines for clinical interpretation. In patients with unstable renal function, e.g. those with acute kidney injury, the eGFR may not accurately reflect actual GFR. Performed By: #### 2 4323-8, 03590-3 ####[facility] NORTHNCLIA [id number] [place] [address] [place] Glucose [Mass/Vol] 325 mg/dL High 74-99 [facility] Comment on above: Order Comment: Speci men Type: BLOOD SPECIMENOrdering Facility: [facility] Address: [address] [place] [address] Result Comment: The [place] Diabetes Association (ADA) provides guidance for cutoff values for fasting glucose and random glucose. The ADA defines fasting as no caloric intake for at least 8 hours. Fasting plasma glucose results between 100 to 125 mg/dL indicate increased risk for diabetes (prediabetes). Fasting plasma glucose results greater than or equal to 126 mg/dL meet the criteria for diagnosis of diabetes. In the absence of unequivocal hyperglycemia, results should be confirmed by repeat testing. In a patient with classic symptoms of hyperglycemia or hyperglycemic crisis, random plasma glucose results greater than or equal to 200 mg/dL meet the criteria for diagnosis of diabetes. Reference: Standards of Medical Care in Diabetes 2016, [place] [employer] Association. Diabetes Care. 2016.39(Suppl 1). Performed By: #### 2 4323-8, 75000-9 ####[facility] [id number] [place] [address] [place] Potassium [Moles/Vol] 4.5 mmol/L Normal 3.7-5.1 [facility] Comment on above: Order Comment: Speci men Type: BLOOD SPECIMENOrdering Facility: [facility] Address: [address] [place] [address] Performed By: #### 2 4323-8, 76402-9 ####[facility] [id number] [place] [address] [place] Protein [Mass/Vol] 6.9 g/dL Normal 6.3-8.0 [facility] Comment on above: Order Comment: Speci men Type: BLOOD SPECIMENOrdering Facility: [facility] Address: [address] [place] [address] Performed By: #### 2 4323-8, 78212-9 ####[facility] [id number] [place] [address] [place] Sodium [Moles/Vol] 132 mmol/L Low 136-144 [facility] Comment on above: Order Comment: Speci men Type: BLOOD SPECIMENOrdering Facility: [facility] Address: [address] [place] [address] Performed By: #### 2 4323-8, 52188-1 ####[facility] REJI LEDBETTERTOWNCLIA [id number] [address] [place] Urea nitrogen [Mass/Vol] 11 mg/dL Normal 7-21 [facility] Comment on above: Order Comment: Speci men Type: BLOOD SPECIMENOrdering Facility: [facility] Address: [facility] [place] [address] Performed By: #### 2 4323-8, 06431-5 ####[facility] REJI LEDBETTERTOWNCLIA [id number] [address] OF [facility] CNPNon 01-24-2025 CNPN Telephone ([facility]) -- TELMA TINEO ([id number]) 1940 F Date Time Provider Department 01/24/25 AMARILYS NIÑO During your visit today, we recorded the following information about you: Amarilys Niño DO 01/24/2025 12:[address] Freeman referring her for new diagnosis of pancreas cancer. Next new patient appointment with either me or Dr. Yusuf. DO [place] Montgomery Naomi 01/25/2025 9:09 AM Signed This pt is scheduled. Nasim Fragoso Allergies As of Date: 01/24/2025 Noted Allergy Reaction PENICILLINS 09/14/2021 10 - Anaphylaxis TETRACYCLINE 09/14/2021 2 - Rash TRAMADOL 07/01/2024 5 - Intolerance Comments: Trembling Date Reviewed: 01/23/2025 Reviewed by: Danielle Gamez, RN - Fully Assessed Reason for Visit: Appointment [186] Prescriptions as of 01/25/2025 - aspirin, enteric coated (ASPIRIN, ENTERIC COATED) 81 mg EC tablet Take 1 tablet by mouth once daily for 3 doses. - sucralfate (CARAFATE) 1 gram tablet Take 1 tablet by mouth four times daily. - insulin NPH-insulin regular 70/30 (NOVOLIN 70/30 U-100 INSULIN) 100 unit/mL suspension Inject 15 Units subcutaneously two times a day with meals. With breakfast and dinner - Insulin Syringe-Needle U-100 0.5 mL 31 gauge x 5/16 1 Each two times a day. - blood sugar diagnostic test strip Use with blood glucose test 2 times daily, Insulin Dep? Yes - Lancets Use with blood glucose test 2 times daily. Insulin Dep? Yes - alcohol swabs Use with blood glucose test 2 times daily. Insulin Dep? Yes - glucose 4 gram chewable tablet Take 4 tablets by mouth as needed for low blood sugar. - Blood-Glucose Meter,Continuous (FREESTYLE TOLU 3 READER) mis Use to check blood sugar at least four (4) times daily. - Blood-Glucose Sensor (FREESTYLE TOLU 3 PLUS SENSOR) benjamin Apply new sensor every fifteen (15) days to upper arm. - metoprolol tartrate, short acting, (LOPRESSOR) 50 mg tablet Take 1.5 tablets by mouth two times a day. - losartan (COZAAR) 100 mg tablet Take 1 tablet by mouth once daily. - pantoprazole DR (PROTONIX) 40 mg tablet Take 1 tablet by mouth two times a day. - PEG 400-propylene glycol (SYSTANE ULTRA) 0.4-0.3 % ophthalmic solution Use 1 Drop in both eyes three times a day. - atorvastatin (LIPITOR) 20 mg tablet Take 1 tablet by mouth once daily. - ELIQUIS 5 mg tab(s) (Mar Hold) Take 5 mg by mouth two times a day. - amLODIPine (NORVASC) 10 mg tablet Take 10 mg by mouth once daily. - Blood Pressure Test Kit-Large (Mapidy ARM BP MONITOR) 1 Each once daily. 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] 09/14/2021 History of uterine cancer [Z85.42] 09/14/2021 Bronchiectasis without complication (HCC) [J47.*11/22/2022 Atrial fibrillation, unspecified type (HCC) [I4*04/15/2023 Candidiasis of vagina [B37.31] 05/20/2023 05/20/2023 Diagnosed: 05/20/2023 Chest pain [R07.9] 03/12/2023 07/01/2024 Diagnosed: 05/20/2023 Hyperlipidemia [E78.5] 05/20/2023 Diagnosed: 05/20/2023 Impaired cognition [R41.89] 05/20/2023 Diagnosed: 05/20/2023 assisted current use of anticoagulant therapy *05/20/2023 Diagnosed: 05/20/2023 Neck pain [M54.2] 05/20/2023 05/20/2023 Diagnosed: 05/20/2023 Cerebrovascular accident (CVA) (HCC) [I63.9] 05/20/2023 Diagnosed: 05/20/2023 Jaundice [R17] 01/15/2025 Pancreatic mass [K86.89] 01/15/2025 Type 2 diabetes mellitus with hyperglycemia (HC*01/18/2025 Hyperglycemia [R73.9] 01/18/2025 Elevated hemoglobin A1c [R73.09] 01/18/2025 Obstructive jaundice [K83.1] 01/18/2025 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) [C*01/21/2025 Encounter Status:Closed by NASIM FRAGOSO on 01/25/25 Normal [facility] CBC W Auto Differential pane l (Bld)on 01-23-2025 Basophils (Bld) [#/Vol] 10*3/uL Normal <0.11 [facility] Comment on above: Order Comment: Speci men Type: BLOOD SPECIMENOrdering Facility: [facility] Address: [address] [place] [address] Performed By: #### 5 7021-8 ####[facility] LABORATORYCLIA [id number] [place] [address] [place] Basophils/100 WBC (Bld) 0.2 % Normal [facility] Comment on above: Order Comment: Speci men Type: BLOOD SPECIMENOrdering Facility: [facility] Address: [address] [place] [address] Performed By: #### 5 7021-8 ####[facility] LABORATORYCLIA [id number] [address] Differential cell count method Nom (Bld) Auto Normal [facility] Comment on above: Order Comment: Speci men Type: BLOOD SPECIMENOrdering Facility: [facility] Address: [address] [place] [address] Performed By: #### 5 7021-8 ####[facility] LABORATORYCLIA [id number] [address] Eosinophils (Bld) [#/Vol] 0.12 10*3/uL Normal <0.46 [facility] Comment on above: Order Comment: Speci men Type: BLOOD SPECIMENOrdering Facility: [facility] Address: [address] [place] [address] Performed By: #### 5 7021-8 ####[facility] LABORATORYCLIA [id number] [address] Eosinophils/100 WBC (Bld) 1.1 % Normal [facility] Comment on above: Order Comment: Speci men Type: BLOOD SPECIMENOrdering Facility: [facility] Address: [address] [place] [address] Performed By: #### 5 7021-8 ####[facility] LABORATORYCLIA [id number] [address] Erythrocyte distribution width (RBC) [Ratio] 15.7 % High 11.5-15.0 [facility] Comment on above: Order Comment: Speci men Type: BLOOD SPECIMENOrdering Facility: [facility] Address: [address] [place] [address] Performed By: #### 5 7021-8 ####[facility] LABORATORYCLIA [id number] [place] [address] [place] Hematocrit (Bld) [Volume fraction] 28.7 % Low 36.0-46.0 [facility] Comment on above: Order Comment: Speci men Type: BLOOD SPECIMENOrdering Facility: [facility] Address: [address] [place] [address] Performed By: #### 5 7021-8 ####[facility] LABORATORYCLIA [id number] [place] [address] [place] Hemoglobin (Bld) [Mass/Vol] 9.2 g/dL Low 11.5-15.5 [facility] Comment on above: Order Comment: Speci men Type: BLOOD SPECIMENOrdering Facility: [facility] Address: [address] [place] [address] Performed By: #### 5 7021-8 ####[facility] LABORATORYCLIA [id number] [address] [place] Immature granulocytes (Bld) [#/Vol] 0.06 10*3/uL Normal <0.10 [facility] Comment on above: Order Comment: Speci men Type: BLOOD SPECIMENOrdering Facility: [facility] Address: [address] [place] [address] Performed By: #### 5 7021-8 ####[facility] LABORATORYCLIA [id number] [address] [place] Immature granulocytes/100 WBC (Bld) 0.6 % Normal [facility] Comment on above: Order Comment: Speci men Type: BLOOD SPECIMENOrdering Facility: [facility] Address: [address] [place] [address] Performed By: #### 5 7021-8 ####[facility] LABORATORYCLIA [id number] [place] [address] [place] Lymphocytes (Bld) [#/Vol] 0.97 10*3/uL Low 1.00-4.00 [facility] Comment on above: Order Comment: Speci men Type: BLOOD SPECIMENOrdering Facility: [facility] Address: [address] [place] [address] Performed By: #### 5 7021-8 ####[facility] LABORATORYCLIA [id number] [address] STATES [facility] Lymphocytes/100 WBC (Bld) 9.0 % Normal [facility] Comment on above: Order Comment: Speci men Type: BLOOD SPECIMENOrdering Facility: [facility] Address: [address] [place] [address] Performed By: #### 5 7021-8 ####[facility] LABORATORYCLIA [id number] [address] MCH (RBC) [Entitic mass] 30.9 pg Normal 26.0-34.0 [facility] Comment on above: Order Comment: Speci men Type: BLOOD SPECIMENOrdering Facility: [facility] Address: [address] [place] [address] Performed By: #### 5 7021-8 ####[facility] LABORATORYCLIA [id number] [address] MCHC (RBC) [Mass/Vol] 32.1 g/dL Normal 30.5-36.0 [facility] Comment on above: Order Comment: Speci men Type: BLOOD SPECIMENOrdering Facility: [facility] Address: [address] [place] [address] Performed By: #### 5 7021-8 ####[facility] LABORATORYCLIA [id number] [address] [place] [facility] MCV (RBC) [Entitic vol] 96.3 fL Normal 80.0-100.0 [facility] Comment on above: Order Comment: Speci men Type: BLOOD SPECIMENOrdering Facility: [facility] Address: [address] [place] [address] Performed By: #### 5 7021-8 ####[facility] LABORATORYCLIA [id number] [address] Monocytes (Bld) [#/Vol] 1.23 10*3/uL High <0.87 [facility] Comment on above: Order Comment: Speci men Type: BLOOD SPECIMENOrdering Facility: [facility] Address: [address] [place] [address] Performed By: #### 5 7021-8 ####[facility]ORATORYCLIA [id number] [address] [place] Monocytes/100 WBC (Bld) 11.5 % Normal [facility] Comment on above: Order Comment: Speci men Type: BLOOD SPECIMENOrdering Facility: [facility] Address: [facility] [place] [address] Performed By: #### 5 7021-8 ####[facility] LABORATORYCLIA [id number] [place] [address] [place] Neutrophils (Bld) [#/Vol] 8.33 10*3/uL High 1.45-7.50 [facility] Comment on above: Order Comment: Speci men Type: BLOOD SPECIMENOrdering Facility: [facility] Address: [address] [place] [address] Performed By: #### 5 7021-8 ####[facility]ORATORYCLIA [id number] [address] [place] Neutrophils/100 WBC (Bld) 77.6 % Normal [facility] Comment on above: Order Comment: Speci men Type: BLOOD SPECIMENOrdering Facility: [facility] Address: [address] [place] [address] Performed By: #### 5 7021-8 ####[facility]ORATORYCLIA [id number] [place] [address] [place] Nucleated RBC (Bld) [#/Vol] 10*3/uL Normal <0.01 [facility] Comment on above: Order Comment: Speci men Type: BLOOD SPECIMENOrdering Facility: [facility] Address: [address] [place] [address] Performed By: #### 5 7021-8 ####[facility]ORATORYCLIA [id number] [place] [address] [place] Nucleated RBC/100 WBC (Bld) [Ratio] 0.0 /100 WBC Normal [facility] Comment on above: Order Comment: Speci men Type: BLOOD SPECIMENOrdering Facility: [facility] Address: [address] [place] [address] Performed By: #### 5 7021-8 ####[facility] LABORATORYCLIA [id number] [place] [address] [place] Platelet mean volume (Bld) [Entitic vol] 12.9 fL High 9.0-12.7 [facility] Comment on above: Order Comment: Speci men Type: BLOOD SPECIMENOrdering Facility: [facility] Address: [address] [place] [address] Performed By: #### 5 7021-8 ####[facility] LABORATORYCLIA [id number] [address] [place] Platelets (Bld) [#/Vol] 237 10*3/uL Normal 150-400 [facility] Comment on above: Order Comment: Speci men Type: BLOOD SPECIMENOrdering Facility: [facility] Address: [address] [place] [address] Performed By: #### 5 7021-8 ####[facility] LABORATORYCLIA [id number] [place] [address] [place] RBC (Bld) [#/Vol] 2.98 10*6/uL Low 3.90-5.20 [facility] Comment on above: Order Comment: Speci men Type: BLOOD SPECIMENOrdering Facility: [facility] Address: [address] [place] [address] Performed By: #### 5 7021-8 ####[facility] LABORATORYCLIA [id number] [address] [place] WBC (Bld) [#/Vol] 10.73 10*3/uL Normal 3.70-11.00 [facility] Comment on above: Order Comment: Speci men Type: BLOOD SPECIMENOrdering Facility: [facility] Address: [address] [place] [address] Performed By: #### 5 7021-8 ####[facility] LABORATORYCLIA [id number] [address] [place] CNDSon 01-23-2025 CNDS Normal [facility] Hepatic function 2000 panelo n 01-23-2025 Albumin [Mass/Vol] 3.4 g/dL Low 3.9-4.9 [facility] Comment on above: Order Comment: Speci men Type: BLOOD SPECIMENOrdering Facility: [facility] Address: [address] [place] [address] Performed By: #### 2 4325-3 ####[facility] LABORATORYCLIA [id number] [place] [address] [place] ALP [Catalytic activity/Vol] 155 U/L High 34-123 [facility] Comment on above: Order Comment: Speci men Type: BLOOD SPECIMENOrdering Facility: [facility] Address: [address] [place] [address] Performed By: #### 2 4325-3 ####[facility] LABORATORYCLIA [id number] [address] [place] ALT With P-5'-P [Catalytic activity/Vol] 46 U/L High 7-38 [facility] Comment on above: Order Comment: Speci men Type: BLOOD SPECIMENOrdering Facility: [facility] Address: [address] [place] [address] Performed By: #### 2 4325-3 ####[facility] LABORATORYCLIA [id number] [address] [place] AST With P-5'-P [Catalytic activity/Vol] 39 U/L High 13-35 [facility] Comment on above: Order Comment: Speci men Type: BLOOD SPECIMENOrdering Facility: [facility] Address: [address] [place] [address] Performed By: #### 2 4325-3 ####[facility] LABORATORYCLIA [id number] [place] [address] [place] Bilirubin [Mass/Vol] 2.5 mg/dL High 0.2-1.3 [facility] Comment on above: Order Comment: Speci men Type: BLOOD SPECIMENOrdering Facility: [facility] Address: [address] [place] [address] Performed By: #### 2 4325-3 ####[facility] LABORATORYCLIA [id number] [place] [address] [place] Bilirubin.conjugated [Mass/Vol] 1.9 mg/dL High <0.3 [facility] Comment on above: Order Comment: Speci men Type: BLOOD SPECIMENOrdering Facility: [facility] Address: [address] [place] [address] Performed By: #### 2 4325-3 ####[facility] LABORATORYCLIA [id number] [address] [place] Protein [Mass/Vol] 5.8 g/dL Low 6.3-8.0 [facility] Comment on above: Order Comment: Speci men Type: BLOOD SPECIMENOrdering Facility: [facility] Address: [address] [place] [address] Performed By: #### 2 4325-3 ####[facility] LABORATORYCLIA [id number] [address] [place] ANES PRE-OPon 01-22-2025 ANES PRE-OP Normal [facility] CASE MANAGEMon 01-22-2025 CASE MANAGEM Normal [facility] CBC panel Auto (Bld)on 01-22 Erythrocyte distribution width (RBC) [Ratio] 15.9 % High 11.5-15.0 [facility] Comment on above: Order Comment: Speci men Type: BLOOD SPECIMENOrdering Facility: [facility] Address: [address] [place] [address] Performed By: #### 5 8410-2 ####[facility] LABORATORYCLIA [id number] [address] [place] Hematocrit (Bld) [Volume fraction] 28.8 % Low 36.0-46.0 [facility] Comment on above: Order Comment: Speci men Type: BLOOD SPECIMENOrdering Facility: [facility] Address: [address] [place] [address] Performed By: #### 5 8410-2 ####[facility] LABORATORYCLIA [id number] [address] Hemoglobin (Bld) [Mass/Vol] 9.3 g/dL Low 11.5-15.5 [facility] Comment on above: Order Comment: Speci men Type: BLOOD SPECIMENOrdering Facility: [facility] Address: [address] [place] [address] Performed By: #### 5 8410-2 ####[facility] LABORATORYCLIA [id number] [address] OF [facility] MCH (RBC) [Entitic mass] 31.1 pg Normal 26.0-34.0 [facility] Comment on above: Order Comment: Speci men Type: BLOOD SPECIMENOrdering Facility: [facility] Address: [address] [place] [address] Performed By: #### 5 8410-2 ####[facility] LABORATORYCLIA [id number] [address] MCHC (RBC) [Mass/Vol] 32.3 g/dL Normal 30.5-36.0 [facility] Comment on above: Order Comment: Speci men Type: BLOOD SPECIMENOrdering Facility: [facility] Address: [address] [place] [address] Performed By: #### 5 8410-2 ####[facility] LABORATORYCLIA [id number] [address] [place] [facility] MCV (RBC) [Entitic vol] 96.3 fL Normal 80.0-100.0 [facility] Comment on above: Order Comment: Speci men Type: BLOOD SPECIMENOrdering Facility: [facility] Address: [address] [place] [address] Performed By: #### 5 8410-2 ####[facility] LABORATORYCLIA [id number] [address] OF [facility] Nucleated RBC (Bld) [#/Vol] 10*3/uL Normal <0.01 [facility] Comment on above: Order Comment: Speci men Type: BLOOD SPECIMENOrdering Facility: [facility] Address: [address] [place] [address] Performed By: #### 5 8410-2 ####[facility] LABORATORYCLIA [id number] [place] [address] [place] Platelet mean volume (Bld) [Entitic vol] 13.0 fL High 9.0-12.7 [facility] Comment on above: Order Comment: Speci men Type: BLOOD SPECIMENOrdering Facility: [facility] Address: [address] [place] [address] Performed By: #### 5 8410-2 ####[facility] LABORATORYCLIA [id number] [place] [address] [place] Platelets (Bld) [#/Vol] 254 10*3/uL Normal 150-400 [facility] Comment on above: Order Comment: Speci men Type: BLOOD SPECIMENOrdering Facility: [facility] Address: [address] [place] [address] Performed By: #### 5 8410-2 ####[facility] LABORATORYCLIA [id number] [place] [address] [place] RBC (Bld) [#/Vol] 2.99 10*6/uL Low 3.90-5.20 [facility] Comment on above: Order Comment: Speci men Type: BLOOD SPECIMENOrdering Facility: [facility] Address: [address] [place] [address] Performed By: #### 5 8410-2 ####[facility] LABORATORYCLIA [id number] [place] [address] [place] WBC (Bld) [#/Vol] 6.28 10*3/uL Normal 3.70-11.00 [facility] Comment on above: Order Comment: Speci men Type: BLOOD SPECIMENOrdering Facility: [facility] Address: [address] [place] [address] Performed By: #### 5 8410-2 ####[facility] LABORATORYCLIA [id number] [place] [address] [place] CONSULT PROGon 01-22-2025 CONSULT PROG Normal [facility] Comprehensive metabolic 2000 panelon 01-22-2025 Albumin [Mass/Vol] 3.4 g/dL Low 3.9-4.9 [facility] Comment on above: Order Comment: Speci men Type: BLOOD SPECIMENOrdering Facility: [facility] Address: [address] [place] [address] Performed By: #### 2 4323-8 ####[facility] LABORATORYCLIA [id number] [place] [address] [place] ALP [Catalytic activity/Vol] 161 U/L High 34-123 [facility] Comment on above: Order Comment: Speci men Type: BLOOD SPECIMENOrdering Facility: [facility] Address: [address] [place] [address] Performed By: #### 2 4323-8 ####[facility] LABORATORYCLIA [id number] [address] [place] ALT With P-5'-P [Catalytic activity/Vol] 48 U/L High 7-38 [facility] Comment on above: Order Comment: Speci men Type: BLOOD SPECIMENOrdering Facility: [facility] Address: [address] [place] [address] Performed By: #### 2 4323-8 ####[facility] LABORATORYCLIA [id number] [address] [place] Anion gap [Moles/Vol] 10 mmol/L Normal 8-15 [facility] Comment on above: Order Comment: Speci men Type: BLOOD SPECIMENOrdering Facility: [facility] Address: [address] [place] [address] Performed By: #### 2 4323-8 ####[facility] LABORATORYCLIA [id number] [place] [address] [place] AST With P-5'-P [Catalytic activity/Vol] 39 U/L High 13-35 [facility] Comment on above: Order Comment: Speci men Type: BLOOD SPECIMENOrdering Facility: [facility] Address: [address] [place] [address] Performed By: #### 2 4323-8 ####[facility] LABORATORYCLIA [id number] [place] [address] [place] Bilirubin [Mass/Vol] 2.5 mg/dL High 0.2-1.3 [facility] Comment on above: Order Comment: Speci men Type: BLOOD SPECIMENOrdering Facility: [facility] Address: [address] [place] [address] Performed By: #### 2 4323-8 ####[facility] LABORATORYCLIA [id number] [place] [address] [place] Calcium [Mass/Vol] 9.1 mg/dL Normal 8.5-10.2 [facility] Comment on above: Order Comment: Speci men Type: BLOOD SPECIMENOrdering Facility: [facility] Address: [address] [place] [address] Performed By: #### 2 4323-8 ####[facility] LABORATORYCLIA [id number] [place] [address] [place] Chloride [Moles/Vol] 104 mmol/L Normal 98-107 [facility] Comment on above: Order Comment: Speci men Type: BLOOD SPECIMENOrdering Facility: [facility] Address: [address] [place] [address] Performed By: #### 2 4323-8 ####[facility] LABORATORYCLIA [id number] [place] [address] [place] CO2 [Moles/Vol] 23 mmol/L Normal 22-30 [facility] Comment on above: Order Comment: Speci men Type: BLOOD SPECIMENOrdering Facility: [facility] Address: [address] [place] [address] Performed By: #### 2 4323-8 ####[facility] LABORATORYCLIA [id number] [place] [address] [place] Creatinine [Mass/Vol] 0.69 mg/dL Normal 0.58-0.96 [facility] Comment on above: Order Comment: Dayron stinson Type: BLOOD SPECIMENOrdering Facility: [facility] Address: [address] [place] [address] Performed By: #### 2 4323-8 ####[facility] LABORATORYCLIA [id number] [place] [address] [place] Creatinine and Glomerular filtration rate.predicted panel (S/P/Bld) 86 mL/min/1.73m??? Normal >=60 [facility] Comment on above: Order Comment: Dayron stinson Type: BLOOD SPECIMENOrdering Facility: [facility] Address: [address] [place] [address] Result Comment: Kya mated Glomerular Filtration Rate (eGFR) is calculated using the 2020 CKD-EPI creatinine equation. This equation utilizes serum creatinine, sex, and age as parameters. The creatinine assay has traceable calibration to isotope dilution-mass spectrometry. Refer to KDIGO guidelines for clinical interpretation. In patients with unstable renal function, e.g. those with acute kidney injury, the eGFR may not accurately reflect actual GFR. Performed By: #### 2 4323-8 ####[facility] LABORATORYCLIA [id number] [place] [address] [place] Glucose [Mass/Vol] 171 mg/dL High 74-99 [facility] Comment on above: Order Comment: Dayron shantell Type: BLOOD SPECIMENOrdering Facility: [facility] Address: [address] [place] [address] Result Comment: The [place] [employer] (ADA) provides guidance for cutoff values for fasting glucose and random glucose. The ADA defines fasting as no caloric intake for at least 8 hours. Fasting plasma glucose results between 100 to 125 mg/dL indicate increased risk for diabetes (prediabetes).Fasting plasma glucose results greater than or equal to 126 mg/dL meet the criteria for diagnosis of diabetes. In the absence of unequivocal hyperglycemia, results should be confirmed by repeat testing. In a patient with classic symptoms of hyperglycemia or hyperglycemic crisis, random plasma glucose results greater than or equal to 200 mg/dL meet the criteria for diagnosis of diabetes.Reference: Standards of Medical Care in Diabetes 2016, [place] [employer]. Diabetes Care. 2016.39(Suppl 1). Performed By: #### 2 4323-8 ####[facility] LABORATORYCLIA [id number] [address] [place] Potassium [Moles/Vol] 4.3 mmol/L Normal 3.7-5.1 [facility] Comment on above: Order Comment: Speci men Type: BLOOD SPECIMENOrdering Facility: [facility] Address: [address] [place] [address] Performed By: #### 2 4323-8 ####[facility] LABORATORYCLIA [id number] [place] [address] [place] Protein [Mass/Vol] 5.7 g/dL Low 6.3-8.0 [facility] Comment on above: Order Comment: Speci men Type: BLOOD SPECIMENOrdering Facility: [facility] Address: [address] [place] [address] Performed By: #### 2 4323-8 ####[facility] LABORATORYCLIA [id number] [address] STATES OF [facility] Sodium [Moles/Vol] 137 mmol/L Normal 136-144 [facility] Comment on above: Order Comment: Speci men Type: BLOOD SPECIMENOrdering Facility: [facility] Address: [address] [place] [address] Performed By: #### 2 4323-8 ####[facility] LABORATORYCLIA [id number] [address] [place] Urea nitrogen [Mass/Vol] 11 mg/dL Normal 7-21 [facility] Comment on above: Order Comment: Speci men Type: BLOOD SPECIMENOrdering Facility: [facility] Address: [address] [place] [address] Performed By: #### 2 4323-8 ####[facility] LABORATORYCLIA [id number] [address] [place] NURSING PROGon 01-22-2025 NURSING PROG Normal [facility] NUTRITIONon 01-22-2025 NUTRITION Normal [facility] Upper GI endoscopyon 025 Upper GI endoscopy Normal [facility] CBC panel Auto (Bld)on 01-21 Erythrocyte distribution width (RBC) [Ratio] 15.7 % High 11.5-15.0 [facility] Comment on above: Order Comment: Speci men Type: BLOOD SPECIMENOrdering Facility: [facility] Address: [address] [place] [address] Performed By: #### 5 8410-2 ####[facility] LABORATORYCLIA [id number] [address] Hematocrit (Bld) [Volume fraction] 27.9 % Low 36.0-46.0 [facility] Comment on above: Order Comment: Speci men Type: BLOOD SPECIMENOrdering Facility: [facility] Address: [address] [place] [address] Performed By: #### 5 8410-2 ####[facility] LABORATORYCLIA [id number] [address] OF [facility] Hemoglobin (Bld) [Mass/Vol] 9.2 g/dL Low 11.5-15.5 [facility] Comment on above: Order Comment: Speci men Type: BLOOD SPECIMENOrdering Facility: [facility] Address: [address] [place] [address] Performed By: #### 5 8410-2 ####[facility] LABORATORYCLIA [id number] [address] STATES OF [facility] MCH (RBC) [Entitic mass] 31.5 pg Normal 26.0-34.0 [facility] Comment on above: Order Comment: Speci men Type: BLOOD SPECIMENOrdering Facility: [facility] Address: [address] [place] [address] Performed By: #### 5 8410-2 ####[facility] LABORATORYCLIA [id number] [address] STATES [facility] MCHC (RBC) [Mass/Vol] 33.0 g/dL Normal 30.5-36.0 [facility] Comment on above: Order Comment: Speci men Type: BLOOD SPECIMENOrdering Facility: [facility] Address: [address] [place] [address] Performed By: #### 5 8410-2 ####[facility] LABORATORYCLIA [id number] [address] [place] MCV (RBC) [Entitic vol] 95.5 fL Normal 80.0-100.0 [facility] Comment on above: Order Comment: Speci men Type: BLOOD SPECIMENOrdering Facility: [facility] Address: [address] [place] [address] Performed By: #### 5 8410-2 ####[facility] LABORATORYCLIA [id number] [address] [place] Nucleated RBC (Bld) [#/Vol] 10*3/uL Normal <0.01 [facility] Comment on above: Order Comment: Speci men Type: BLOOD SPECIMENOrdering Facility: [facility] Address: [address] [place] [address] Performed By: #### 5 8410-2 ####[facility] LABORATORYCLIA [id number] [address] [place] Platelet mean volume (Bld) [Entitic vol] 13.1 fL High 9.0-12.7 [facility] Comment on above: Order Comment: Speci men Type: BLOOD SPECIMENOrdering Facility: [facility] Address: [address] [place] [address] Performed By: #### 5 8410-2 ####[facility] LABORATORYCLIA [id number] [address] [place] Platelets (Bld) [#/Vol] 226 10*3/uL Normal 150-400 [facility] Comment on above: Order Comment: Speci men Type: BLOOD SPECIMENOrdering Facility: [facility] Address: [address] [place] [address] Performed By: #### 5 8410-2 ####[facility] LABORATORYCLIA [id number] [address] [place] RBC (Bld) [#/Vol] 2.92 10*6/uL Low 3.90-5.20 [facility] Comment on above: Order Comment: Speci men Type: BLOOD SPECIMENOrdering Facility: [facility] Address: [address] [place] [address] Performed By: #### 5 8410-2 ####[facility] LABORATORYCLIA [id number] [place] [address] [place] WBC (Bld) [#/Vol] 7.00 10*3/uL Normal 3.70-11.00 [facility] Comment on above: Order Comment: Speci men Type: BLOOD SPECIMENOrdering Facility: [facility] Address: [address] [place] [address] Performed By: #### 5 8410-2 ####[facility] LABORATORYCLIA [id number] [address] [place] CNPNon 01-21-2025 CNPN Normal [facility] CONSULTon 01-21-2025 CONSULT Normal [facility] CONSULT PROGon 01-21-2025 CONSULT PROG Normal [facility] Comprehensive metabolic 2000 panelon 01-21-2025 Albumin [Mass/Vol] 3.2 g/dL Low 3.9-4.9 [facility] Comment on above: Order Comment: Speci men Type: BLOOD SPECIMENOrdering Facility: [facility] Address: [address] [place] [address] Performed By: #### 2 4323-8 ####[facility] LABORATORYCLIA [id number] [address] [place] ALP [Catalytic activity/Vol] 171 U/L High 34-123 [facility] Comment on above: Order Comment: Speci men Type: BLOOD SPECIMENOrdering Facility: [facility] Address: [address] [place] [address] Performed By: #### 2 4323-8 ####[facility] LABORATORYCLIA [id number] [place] [address] [place] ALT With P-5'-P [Catalytic activity/Vol] 50 U/L High 7-38 [facility] Comment on above: Order Comment: Speci men Type: BLOOD SPECIMENOrdering Facility: [facility] Address: [address] [place] [address] Performed By: #### 2 4323-8 ####[facility] LABORATORYCLIA [id number] [place] [address] [place] Anion gap [Moles/Vol] 11 mmol/L Normal 8-15 [facility] Comment on above: Order Comment: Speci men Type: BLOOD SPECIMENOrdering Facility: [facility] Address: [address] [place] [address] Performed By: #### 2 4323-8 ####[facility] LABORATORYCLIA [id number] [address] [place] AST With P-5'-P [Catalytic activity/Vol] 37 U/L High 13-35 [facility] Comment on above: Order Comment: Speci men Type: BLOOD SPECIMENOrdering Facility: [facility] Address: [address] [place] [address] Performed By: #### 2 4323-8 ####[facility] LABORATORYCLIA [id number] [place] [address] [place] Bilirubin [Mass/Vol] 2.7 mg/dL High 0.2-1.3 [facility] Comment on above: Order Comment: Speci men Type: BLOOD SPECIMENOrdering Facility: [facility] Address: [address] [place] [address] Performed By: #### 2 4323-8 ####[facility] LABORATORYCLIA [id number] [place] [address] [place] Calcium [Mass/Vol] 8.8 mg/dL Normal 8.5-10.2 [facility] Comment on above: Order Comment: Speci men Type: BLOOD SPECIMENOrdering Facility: [facility] Address: [address] [place] [address] Performed By: #### 2 4323-8 ####[facility] LABORATORYCLIA [id number] [place] [address] [place] Chloride [Moles/Vol] 104 mmol/L Normal 98-107 [facility] Comment on above: Order Comment: Speci men Type: BLOOD SPECIMENOrdering Facility: [facility] Address: [address] [place] [address] Performed By: #### 2 4323-8 ####[facility] LABORATORYCLIA [id number] [address] CO2 [Moles/Vol] 24 mmol/L Normal 22-30 [facility] Comment on above: Order Comment: Speci men Type: BLOOD SPECIMENOrdering Facility: [facility] Address: [address] [place] [address] Performed By: #### 2 4323-8 ####[facility][1]CLIA [id number] [address] Creatinine [Mass/Vol] 0.64 mg/dL Normal 0.58-0.96 [facility] Comment on above: Order Comment: Speci men Type: BLOOD SPECIMENOrdering Facility: [facility] Address: [address] [place] [address] Performed By: #### 2 4323-8 ####[facility] LABORATORYCLIA [id number] [address] Creatinine and Glomerular filtration rate.predicted panel (S/P/Bld) 87 mL/min/1.73m??? Normal >=60 [facility] Comment on above: Order Comment: Speci men Type: BLOOD SPECIMENOrdering Facility: [facility] Address: [address] [place] [address] Result Comment: Kya mated Glomerular Filtration Rate (eGFR) is calculated using the 2020 CKD-EPI creatinine equation. This equation utilizes serum creatinine, sex, and age as parameters. The creatinine assay has traceable calibration to isotope dilution-mass spectrometry. Refer to KDIGO guidelines for clinical interpretation. In patients with unstable renal function, e.g. those with acute kidney injury, the eGFR may not accurately reflect actual GFR. Performed By: #### 2 4323-8 ####[facility] LABORATORYCLIA [id number] [place] [address] [place] Glucose [Mass/Vol] 182 mg/dL High 74-99 [facility] Comment on above: Order Comment: Speci men Type: BLOOD SPECIMENOrdering Facility: [facility] Address: [address] [place] [address] Result Comment: The [place] Diabetes [employer] (ADA) provides guidance for cutoff values for fasting glucose and random glucose. The ADA defines fasting as no caloric intake for at least 8 hours. Fasting plasma glucose results between 100 to 125 mg/dL indicate increased risk for diabetes (prediabetes).Fasting plasma glucose results greater than or equal to 126 mg/dL meet the criteria for diagnosis of diabetes. In the absence of unequivocal hyperglycemia, results should be confirmed by repeat testing. In a patient with classic symptoms of hyperglycemia or hyperglycemic crisis, random plasma glucose results greater than or equal to 200 mg/dL meet the criteria for diagnosis of diabetes.Reference: Standards of Medical Care in Diabetes 2016, [place] [employer]. Diabetes Care. 2016.39(Suppl 1). Performed By: #### 2 4323-8 ####[facility] LABORATORYCLIA [id number] [place] [address] [place] Potassium [Moles/Vol] 4.1 mmol/L Normal 3.7-5.1 [facility] Comment on above: Order Comment: Speci men Type: BLOOD SPECIMENOrdering Facility: [facility] Address: [address] [place] [address] Performed By: #### 2 4323-8 ####[facility] LABORATORYCLIA [id number] [place] [address] [place] Protein [Mass/Vol] 5.6 g/dL Low 6.3-8.0 [facility] Comment on above: Order Comment: Speci men Type: BLOOD SPECIMENOrdering Facility: [facility] Address: [address] [place] [address] Performed By: #### 2 4323-8 ####[facility] LABORATORYCLIA [id number] [place] [address] [place] Sodium [Moles/Vol] 139 mmol/L Normal 136-144 [facility] Comment on above: Order Comment: Speci men Type: BLOOD SPECIMENOrdering Facility: [facility] Address: [address] [place] [address] Performed By: #### 2 4323-8 ####[facility] LABORATORYCLIA [id number] [address] STATES [facility] Urea nitrogen [Mass/Vol] 14 mg/dL Normal 7- [facility] Comment on above: Order Comment: Speci men Type: BLOOD SPECIMENOrdering Facility: [facility] Address: [address] [place] [address] Performed By: #### 2 4323-8 ####[facility] LABORATORYCLIA [id number] [address] STATES OF [facility] Hematocrit Auto (Bld) [Volum e fraction]on 01-21-2025 Hematocrit (Bld) [Volume fraction] 30.7 % Low 36.0-46.0 [facility] Comment on above: Order Comment: Speci men Type: BLOOD SPECIMENOrdering Facility: [facility] Address: [address] [place] [address] Performed By: #### 4 544-3, 718-7 ####[facility] LABORATORYCLIA [id number] [address] [place] Hgb Bld-mCncon 01-21-2025 Hemoglobin (Bld) [Mass/Vol] 9.9 g/dL Low 11.5-15.5 [facility] Comment on above: Order Comment: Speci men Type: BLOOD SPECIMENOrdering Facility: [facility] Address: [address] [place] [address] Performed By: #### 4 544-3, 718-7 ####[facility] LABORATORYCLIA [id number] [address] [place] CASE MANAGEMon 01-20-2025 CASE MANAGEM Normal [facility] CBC panel Auto (Bld)on 01-20 Erythrocyte distribution width (RBC) [Ratio] 15.9 % High 11.5-15.0 [facility] Comment on above: Order Comment: Speci men Type: BLOOD SPECIMENOrdering Facility: [facility] Address: [address] [place] [address] Performed By: #### 5 8410-2 ####[facility] LABORATORYCLIA [id number] [address] Hematocrit (Bld) [Volume fraction] 30.5 % Low 36.0-46.0 [facility] Comment on above: Order Comment: Speci men Type: BLOOD SPECIMENOrdering Facility: [facility] Address: [address] [place] [address] Performed By: #### 5 8410-2 ####[facility] LABORATORYCLIA [id number] [address] OF [facility] Hemoglobin (Bld) [Mass/Vol] 9.9 g/dL Low 11.5-15.5 [facility] Comment on above: Order Comment: Speci men Type: BLOOD SPECIMENOrdering Facility: [facility] Address: [address] [place] [address] Performed By: #### 5 8410-2 ####[facility] LABORATORYCLIA [id number] [address] MCH (RBC) [Entitic mass] 30.8 pg Normal 26.0-34.0 [facility] Comment on above: Order Comment: Speci men Type: BLOOD SPECIMENOrdering Facility: [facility] Address: [address] [place] [address] Performed By: #### 5 8410-2 ####[facility] LABORATORYCLIA [id number] [address] [place] MCHC (RBC) [Mass/Vol] 32.5 g/dL Normal 30.5-36.0 [facility] Comment on above: Order Comment: Speci men Type: BLOOD SPECIMENOrdering Facility: [facility] Address: [address] [place] [address] Performed By: #### 5 8410-2 ####[facility] LABORATORYCLIA [id number] [place] [address] [place] MCV (RBC) [Entitic vol] 95.0 fL Normal 80.0-100.0 [facility] Comment on above: Order Comment: Speci men Type: BLOOD SPECIMENOrdering Facility: [facility] Address: [address] [place] [address] Performed By: #### 5 8410-2 ####[facility] LABORATORYCLIA [id number] [place] [address] [place] Nucleated RBC (Bld) [#/Vol] 10*3/uL Normal <0.01 [facility] Comment on above: Order Comment: Speci men Type: BLOOD SPECIMENOrdering Facility: [facility] Address: [address] [place] [address] Performed By: #### 5 8410-2 ####[facility] LABORATORYCLIA [id number] [address] [place] Platelet mean volume (Bld) [Entitic vol] 13.1 fL High 9.0-12.7 [facility] Comment on above: Order Comment: Speci men Type: BLOOD SPECIMENOrdering Facility: [facility] Address: [address] [place] [address] Performed By: #### 5 8410-2 ####[facility] LABORATORYCLIA [id number] [address] [place] Platelets (Bld) [#/Vol] 233 10*3/uL Normal 150-400 [facility] Comment on above: Order Comment: Speci men Type: BLOOD SPECIMENOrdering Facility: [facility] Address: [address] [place] [address] Performed By: #### 5 8410-2 ####[facility] LABORATORYCLIA [id number] [place] [address] [place] RBC (Bld) [#/Vol] 3.21 10*6/uL Low 3.90-5.20 [facility] Comment on above: Order Comment: Speci men Type: BLOOD SPECIMENOrdering Facility: [facility] [facility] Address: [address] [place] [address] Performed By: #### 5 8410-2 ####[facility] LABORATORYCLIA [id number] [place] [address] [place] WBC (Bld) [#/Vol] 8.06 10*3/uL Normal 3.70-11.00 [facility] Comment on above: Order Comment: Speci men Type: BLOOD SPECIMENOrdering Facility: [facility] Address: [address] [place] [address] Performed By: #### 5 8410-2 ####[facility] LABORATORYCLIA [id number] [address] OF [place] CONSULT PROGon 01-20-2025 CONSULT PROG Normal [facility] Comprehensive metabolic 2000 panelon 01-20-2025 Albumin [Mass/Vol] 3.2 g/dL Low 3.9-4.9 [facility] Comment on above: Order Comment: Speci men Type: BLOOD SPECIMENOrdering Facility: [facility] Address: [address] [place] [address] Performed By: #### 2 4323-8 ####[facility] LABORATORYCLIA [id number] [address] [place] ALP [Catalytic activity/Vol] 197 U/L High 34-123 [facility] Comment on above: Order Comment: Speci men Type: BLOOD SPECIMENOrdering Facility: [facility] Address: [address] [place] [address] Performed By: #### 2 4323-8 ####[facility] LABORATORYCLIA [id number] [address] [place] ALT With P-5'-P [Catalytic activity/Vol] 60 U/L High 7-38 [facility] Comment on above: Order Comment: Speci men Type: BLOOD SPECIMENOrdering Facility: [facility] Address: [address] [place] [address] Performed By: #### 2 4323-8 ####[facility] LABORATORYCLIA [id number] [address] [place] Anion gap [Moles/Vol] 10 mmol/L Normal 8-15 [facility] Comment on above: Order Comment: Speci men Type: BLOOD SPECIMENOrdering Facility: [facility] Address: [address] [place] [address] Performed By: #### 2 4323-8 ####[facility] LABORATORYCLIA [id number] [place] [address] [place] AST With P-5'-P [Catalytic activity/Vol] 32 U/L Normal 13-35 [facility] Comment on above: Order Comment: Speci men Type: BLOOD SPECIMENOrdering Facility: [facility] Address: [address] [place] [address] Performed By: #### 2 4323-8 ####[facility] LABORATORYCLIA [id number] [place] [address] [place] Bilirubin [Mass/Vol] 3.1 mg/dL High 0.2-1.3 [facility] Comment on above: Order Comment: Speci men Type: BLOOD SPECIMENOrdering Facility: [facility] Address: [address] [place] [address] Performed By: #### 2 4323-8 ####[facility] LABORATORYCLIA [id number] [place] [address] [place] Calcium [Mass/Vol] 8.9 mg/dL Normal 8.5-10.2 [facility] Comment on above: Order Comment: Speci men Type: BLOOD SPECIMENOrdering Facility: [facility] Address: [address] [place] [address] Performed By: #### 2 4323-8 ####[facility] LABORATORYCLIA [id number] [place] [address] [place] Chloride [Moles/Vol] 102 mmol/L Normal 98-107 [facility] Comment on above: Order Comment: Speci men Type: BLOOD SPECIMENOrdering Facility: [facility] Address: [address] [place] [address] Performed By: #### 2 4323-8 ####[facility] LABORATORYCLIA [id number] [address] CO2 [Moles/Vol] 23 mmol/L Normal 22-30 [facility] Comment on above: Order Comment: Speci men Type: BLOOD SPECIMENOrdering Facility: [facility] Address: [address] [place] [address] Performed By: #### 2 4323-8 ####[facility] LABORATORYCLIA [id number] [address] STATES OF [facility] Creatinine [Mass/Vol] 0.65 mg/dL Normal 0.58-0.96 [facility] Comment on above: Order Comment: Speci men Type: BLOOD SPECIMENOrdering Facility: [facility] Address: [address] [place] [address] Performed By: #### 2 4323-8 ####[facility] LABORATORYCLIA [id number] [address] Creatinine and Glomerular filtration rate.predicted panel (S/P/Bld) 87 mL/min/1.73m??? Normal >=60 [facility] Comment on above: Order Comment: Speci men Type: BLOOD SPECIMENOrdering Facility: [facility] Address: [address] [place] [address] Result Comment: Kya mated Glomerular Filtration Rate (eGFR) is calculated using the 2020 CKD-EPI creatinine equation. This equation utilizes serum creatinine, sex, and age as parameters. The creatinine assay has traceable calibration to isotope dilution-mass spectrometry. Refer to KDIGO guidelines for clinical interpretation. In patients with unstable renal function, e.g. those with acute kidney injury, the eGFR may not accurately reflect actual GFR. Performed By: #### 2 4323-8 ####[facility] LABORATORYCLIA [id number] [address] STATES OF [facility] Glucose [Mass/Vol] 232 mg/dL High 74-99 [facility] Comment on above: Order Comment: Speci shantell Type: BLOOD SPECIMENOrdering Facility: [facility] Address: [address] [place] [address] Result Comment: The [place] Diabetes Association (ADA) provides guidance for cutoff values for fasting glucose and random glucose. The ADA defines fasting as no caloric intake for at least 8 hours. Fasting plasma glucose results between 100 to 125 mg/dL indicate increased risk for diabetes (prediabetes).Fasting plasma glucose results greater than or equal to 126 mg/dL meet the criteria for diagnosis of diabetes. In the absence of unequivocal hyperglycemia, results should be confirmed by repeat testing. In a patient with classic symptoms of hyperglycemia or hyperglycemic crisis, random plasma glucose results greater than or equal to 200 mg/dL meet the criteria for diagnosis of diabetes.Reference: Standards of Medical Care in Diabetes 2016, [place] [employer] Association. Diabetes Care. 2016.39(Suppl 1). Performed By: #### 2 4323-8 ####[facility] LABORATORYCLIA [id number] [place] [address] [place] Potassium [Moles/Vol] 4.1 mmol/L Normal 3.7-5.1 [facility] Comment on above: Order Comment: Speci men Type: BLOOD SPECIMENOrdering Facility: [facility] Address: [address] [place] [address] Performed By: #### 2 4323-8 ####[facility] LABORATORYCLIA [id number] [place] [address] [place] Protein [Mass/Vol] 5.7 g/dL Low 6.3-8.0 [facility] Comment on above: Order Comment: Dayron stinson Type: BLOOD SPECIMENOrdering Facility: [facility] Address: [address] [place] [address] Performed By: #### 2 4323-8 ####[facility] LABORATORYCLIA [id number] [place] [address] [place] Sodium [Moles/Vol] 135 mmol/L Low 136-144 [facility] Comment on above: Order Comment: Elinori men Type: BLOOD SPECIMENOrdering Facility: [facility] Address: [address] [place] [address] Performed By: #### 2 4323-8 ####[facility] LABORATORYCLIA [id number] [place] [address] [place] Urea nitrogen [Mass/Vol] 14 mg/dL Normal 7-21 [facility] Comment on above: Order Comment: Speci men Type: BLOOD SPECIMENOrdering Facility: [facility] Address: [address] [place] [address] Performed By: #### 2 4323-8 ####[facility] LABORATORYCLIA [id number] [place] [address] [place] ALLIED HEALTHon 01-19-2025 ALLIED HEALTH Normal [facility] CBC panel Auto (Bld)on 01-19 Erythrocyte distribution width (RBC) [Ratio] 15.8 % High 11.5-15.0 [facility] Comment on above: Order Comment: Speci men Type: BLOOD SPECIMENOrdering Facility: [facility] Address: [address] [place] [address] Performed By: #### 5 8410-2 ####[facility] LABORATORYCLIA [id number] [address] [place] Hematocrit (Bld) [Volume fraction] 30.9 % Low 36.0-46.0 [facility] Comment on above: Order Comment: Speci men Type: BLOOD SPECIMENOrdering Facility: [facility] Address: [address] [place] [address] Performed By: #### 5 8410-2 ####[facility] LABORATORYCLIA [id number] [address] [place] Hemoglobin (Bld) [Mass/Vol] 10.3 g/dL Low 11.5-15.5 [facility] Comment on above: Order Comment: Speci men Type: BLOOD SPECIMENOrdering Facility: [facility] Address: [address] [place] [address] Performed By: #### 5 8410-2 ####[facility] LABORATORYCLIA [id number] [address] [place] MCH (RBC) [Entitic mass] 30.7 pg Normal 26.0-34.0 [facility] Comment on above: Order Comment: Speci men Type: BLOOD SPECIMENOrdering Facility: [facility] Address: [address] [place] [address] Performed By: #### 5 8410-2 ####[facility] LABORATORYCLIA [id number] [address] STATES [facility] MCHC (RBC) [Mass/Vol] 33.3 g/dL Normal 30.5-36.0 [facility] Comment on above: Order Comment: Speci men Type: BLOOD SPECIMENOrdering Facility: [facility] Address: [address] [place] [address] Performed By: #### 5 8410-2 ####[facility] LABORATORYCLIA [id number] [address] [place] MCV (RBC) [Entitic vol] 92.2 fL Normal 80.0-100.0 [facility] Comment on above: Order Comment: Speci men Type: BLOOD SPECIMENOrdering Facility: [facility] Address: [address] [place] [address] Performed By: #### 5 8410-2 ####[facility] LABORATORYCLIA [id number] [address] Nucleated RBC (Bld) [#/Vol] 10*3/uL Normal <0.01 [facility] Comment on above: Order Comment: Speci men Type: BLOOD SPECIMENOrdering Facility: [facility] Address: [address] [place] [address] Performed By: #### 5 8410-2 ####[facility] LABORATORYCLIA [id number] [address] [place] Platelet mean volume (Bld) [Entitic vol] 13.9 fL High 9.0-12.7 [facility] Comment on above: Order Comment: Speci men Type: BLOOD SPECIMENOrdering Facility: [facility] Address: [address] [place] [address] Performed By: #### 5 8410-2 ####[facility] LABORATORYCLIA [id number] [address] [place] Platelets (Bld) [#/Vol] 219 10*3/uL Normal 150-400 [facility] Comment on above: Order Comment: Speci men Type: BLOOD SPECIMENOrdering Facility: [facility] Address: [address] [place] [address] Performed By: #### 5 8410-2 ####[facility] LABORATORYCLIA [id number] [place] [id number] [facility] RBC (Bld) [#/Vol] 3.35 10*6/uL Low 3.90-5.20 [facility] Comment on above: Order Comment: Speci men Type: BLOOD SPECIMENOrdering Facility: [facility] Address: [address] [place] [address] Performed By: #### 5 8410-2 ####[facility] LABORATORYCLIA [id number] [place] [id number] [facility] WBC (Bld) [#/Vol] 9.47 10*3/uL Normal 3.70-11.00 [facility] Comment on above: Order Comment: Speci shantell Type: BLOOD SPECIMENOrdering Facility: [facility] Address: [address] [place] [address] Performed By: #### 5 8410-2 ####[facility] LABORATORYCLIA [id number] [address] CNPClarissa 01-19-2025 [facility] -- TELMA TINEO ([id number]) 1940 F Date Time Provider Department 01/19/25 HENOK MARTINEZ During your visit today, we recorded the following information about you: Dahlia Guevara 01/19/2025 11:18 AM Signed Telma is a patient of Henok Martinez MD today Timothy, son called and stated his mother is currently in the hospital and the doctor at the hospital is requesting PCP order the Tolu 3 CGM system. Please send to [facility]. Please notify son once completed. Patient has been identified by name and birthdate. Duration of symptoms: N/A Person calling: son: Timothy Call patient at: on cell Was an appointment scheduled: No Closing statement: Results or non-symptom based questions: Thank you for calling [facility], your call will be returned within the next business day. Dahlia Franco Pss Henok Martinez MD 01/19/2025 11:51 AM Signed Let them know rx sent. If there is anything else we can do please let us know [place] Dahlia Barreto 01/19/2025 1:39 PM Signed Timothy, son called again and he stated that [facility] told him they can no longer bill medicare for diabetic CGM. They told him to have the prescriptions sent to [facility] [place]. Please notify Timothy once sent. Henok Martinez MD 01/20/2025 10:28 AM Signed Rx sent Shabnam Ruiz LPN 01/20/2025 2:11 PM Signed Notified Timothy. Elaina Retana 01/25/2025 10:04 AM Signed Patient's son calling and states that the Tolu III systems. Son states that in order to get the supplies covered by insurance, the doctor must have a face to fact with [facility]. Juanis Schuster RN 01/25/2025 11:39 AM Signed [facility] calls to request most recent OV notes discussing diabetes. Faxed OV notes form 10/2024 as requested. Juanis Schuster RN Allergies As of Date: 01/19/2025 Noted Allergy Reaction PENICILLINS 09/14/2021 10 - Anaphylaxis TETRACYCLINE 09/14/2021 2 - Rash TRAMADOL 07/01/2024 5 - Intolerance Comments: Trembling Date Reviewed: 01/19/2025 Reviewed by: Cynthia Jaimes RN - Fully Assessed Reason for Visit: diabetic supplies [Other] Cmt: Tolu 3 CGM system Primary Visit Diagnosis:Type 2 diabetes mellitus without complication, without long-term current use of insulin (HCC) [E11.9] Order(s):Blood-Glucose Meter,Continuous (FREESTYLE TOLU 3 READER) miscUse to check blood sugar at least four (4) times daily.Disp: 1 EachRfl: 0 Blood-Glucose Sensor (FREESTYLE TOLU 3 PLUS SENSOR) deviApply new sensor every fifteen (15) days to upper arm.Disp: 6 EachRfl: 4 Prescriptions as of 01/25/2025 - ondansetron (ZOFRAN) 8 mg tablet Take 1 tablet by mouth every 8 hours as needed. - aspirin, enteric coated (ASPIRIN, ENTERIC COATED) 81 mg EC tablet Take 1 tablet by mouth once daily for 3 doses. - sucralfate (CARAFATE) 1 gram tablet Take 1 tablet by mouth four times daily. - insulin NPH-insulin regular 70/30 (NOVOLIN 70/30 U-100 INSULIN) 100 unit/mL suspension Inject 15 Units subcutaneously two times a day with meals. With breakfast and dinner - Insulin Syringe-Needle U-100 0.5 mL 31 gauge x 5/16 1 Each two times a day. - blood sugar diagnostic test strip Use with blood glucose test 2 times daily, Insulin Dep? Yes - Lancets Use with blood glucose test 2 times daily. Insulin Dep? Yes - alcohol swabs Use with blood glucose test 2 times daily. Insulin Dep? Yes - glucose 4 gram chewable tablet Take 4 tablets by mouth as needed for low blood sugar. - Blood-Glucose Meter,Continuous (FREESTYLE TOLU 3 READER) [facility] Use to check blood sugar at least four (4) times daily. - Blood-Glucose Sensor (FREESTYLE TOLU 3 PLUS SENSOR) benjamin Apply new sensor every fifteen (15) days to upper arm. - metoprolol tartrate, short acting, (LOPRESSOR) 50 mg tablet Take 1.5 tablets by mouth two times a day. - losartan (COZAAR) 100 mg tablet Take 1 tablet by mouth once daily. - pantoprazole DR (PROTONIX) 40 mg tablet Take 1 tablet by mouth two times a day. - PEG 400-propylene glycol (SYSTANE ULTRA) 0.4-0.3 % ophthalmic solution Use 1 Drop in both eyes three times a day. - atorvastatin (LIPITOR) 20 mg tablet Take 1 tablet by mouth once daily. - ELIQUIS 5 mg tab(s) (Mar Hold) Take 5 mg by mouth two times a day. - amLODIPine (NORVASC) 10 mg tablet Take 10 mg by mouth once daily. - Blood Pressure Test Kit-Large (Mapidy ARM BP MONITOR) 1 Each once daily. 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 Normal [facility] CONSULT PROGon 01-19-2025 CONSULT PROG Normal [facility] Comprehensive metabolic 2000 panelon 01-19-2025 Albumin [Mass/Vol] 3.3 g/dL Low 3.9-4.9 [facility] Comment on above: Order Comment: Dayron stinson Type: BLOOD SPECIMENOrdering Facility: [facility] Address: [address] [place] [address] Performed By: #### 2 4323-8 ####[facility] LABORATORYCLIA [id number] [place] [address] [place] ALP [Catalytic activity/Vol] 241 U/L High 34-123 [facility] Comment on above: Order Comment: Dayron stinson Type: BLOOD SPECIMENOrdering Facility: [facility] Address: [address] [place] [address] Performed By: #### 2 4323-8 ####[facility] LABORATORYCLIA [id number] [place] [address] [place] ALT With P-5'-P [Catalytic activity/Vol] 78 U/L High 7-38 [facility] Comment on above: Order Comment: Dayron stinson Type: BLOOD SPECIMENOrdering Facility: [facility] Address: [facility] [place] [address] Performed By: #### 2 4323-8 ####[facility] LABORATORYCLIA [id number] [address] [place] Anion gap [Moles/Vol] 10 mmol/L Normal 8-15 [facility] Comment on above: Order Comment: Speci men Type: BLOOD SPECIMENOrdering Facility: [facility] Address: [facility] [place] [address] Performed By: #### 2 4323-8 ####[facility] LABORATORYCLIA [id number] [place] [address] [place] AST With P-5'-P [Catalytic activity/Vol] 38 U/L High 13-35 [facility] Comment on above: Order Comment: Speci men Type: BLOOD SPECIMENOrdering Facility: [facility] Address: [address] [place] [address] Performed By: #### 2 4323-8 ####[facility] LABORATORYCLIA [id number] [place] [address] [place] Bilirubin [Mass/Vol] 3.8 mg/dL High 0.2-1.3 [facility] Comment on above: Order Comment: Speci men Type: BLOOD SPECIMENOrdering Facility: [facility] Address: [address] [place] [address] Performed By: #### 2 4323-8 ####[facility] LABORATORYCLIA [id number] [place] [address] [place] Calcium [Mass/Vol] 9.0 mg/dL Normal 8.5-10.2 [facility] Comment on above: Order Comment: Speci men Type: BLOOD SPECIMENOrdering Facility: [facility] Address: [address] [place] [address] Performed By: #### 2 4323-8 ####[facility] LABORATORYCLIA [id number] [place] [address] [place] Chloride [Moles/Vol] 97 mmol/L Low 98-107 [facility] Comment on above: Order Comment: Speci men Type: BLOOD SPECIMENOrdering Facility: [facility] Address: [address] [place] [address] Performed By: #### 2 4323-8 ####[facility] LABORATORYCLIA [id number] [address] OF [facility] CO2 [Moles/Vol] 23 mmol/L Normal 22-30 [facility] Comment on above: Order Comment: Speci men Type: BLOOD SPECIMENOrdering Facility: [facility] Address: [address] [place] [address] Performed By: #### 2 4323-8 ####[facility] LABORATORYCLIA [id number] [address] [place] Creatinine [Mass/Vol] 0.62 mg/dL Normal 0.58-0.96 [facility] Comment on above: Order Comment: Speci men Type: BLOOD SPECIMENOrdering Facility: [facility] Address: [address] [place] [address] Performed By: #### 2 4323-8 ####[facility] LABORATORYCLIA [id number] [address] Creatinine and Glomerular filtration rate.predicted panel (S/P/Bld) 88 mL/min/1.73m??? Normal >=60 [facility] Comment on above: Order Comment: Speci men Type: BLOOD SPECIMENOrdering Facility: [facility] Address: [address] [place] [address] Result Comment: Kya mated Glomerular Filtration Rate (eGFR) is calculated using the 2020 CKD-EPI creatinine equation. This equation utilizes serum creatinine, sex, and age as parameters. The creatinine assay has traceable calibration to isotope dilution-mass spectrometry. Refer to KDIGO guidelines for clinical interpretation. In patients with unstable renal function, e.g. those with acute kidney injury, the eGFR may not accurately reflect actual GFR. Performed By: #### 2 4323-8 ####[facility] LABORATORYCLIA [id number] [address] STATES OF [facility] Glucose [Mass/Vol] 262 mg/dL High 74-99 [facility] Comment on above: Order Comment: Speci men Type: BLOOD SPECIMENOrdering Facility: [facility] Address: [address] [place] [address] Result Comment: The [place] Diabetes Association (ADA) provides guidance for cutoff values for fasting glucose and random glucose. The ADA defines fasting as no caloric intake for at least 8 hours. Fasting plasma glucose results between 100 to 125 mg/dL indicate increased risk for diabetes (prediabetes).Fasting plasma glucose results greater than or equal to 126 mg/dL meet the criteria for diagnosis of diabetes. In the absence of unequivocal hyperglycemia, results should be confirmed by repeat testing. In a patient with classic symptoms of hyperglycemia or hyperglycemic crisis, random plasma glucose results greater than or equal to 200 mg/dL meet the criteria for diagnosis of diabetes.Reference: Standards of Medical Care in Diabetes 2016, [place] [employer]. Diabetes Care. 2016.39(Suppl 1). Performed By: #### 2 4323-8 ####[facility] LABORATORYCLIA [id number] [place] [address] [place] Potassium [Moles/Vol] 3.7 mmol/L Normal 3.7-5.1 [facility] Comment on above: Order Comment: Speci men Type: BLOOD SPECIMENOrdering Facility: [facility] Address: [address] [place] [address] Performed By: #### 2 4323-8 ####[facility] LABORATORYCLIA [id number] [place] [address] [place] Protein [Mass/Vol] 5.7 g/dL Low 6.3-8.0 [facility] Comment on above: Order Comment: Dayron stinson Type: BLOOD SPECIMENOrdering Facility: [facility] Address: [address] [place] [address] Performed By: #### 2 4323-8 ####[facility] LABORATORYCLIA [id number] [place] [address] [place] Sodium [Moles/Vol] 130 mmol/L Low 136-144 [facility] Comment on above: Order Comment: Elinori men Type: BLOOD SPECIMENOrdering Facility: [facility] Address: [address] [place] [address] Performed By: #### 2 4323-8 ####[facility] LABORATORYCLIA [id number] [place] [address] [place] Urea nitrogen [Mass/Vol] 14 mg/dL Normal 7-21 [facility] Comment on above: Order Comment: Speci men Type: BLOOD SPECIMENOrdering Facility: [facility] Address: [address] [place] [address] Performed By: #### 2 4323-8 ####[facility] LABORATORYCLIA [id number] [place] [id number] [place] ALLIED HEALTHon 01-18-2025 ALLIED HEALTH Normal [facility] CASE MANAGEMon 01-18-2025 CASE MANAGEM Normal [facility] CBC panel Auto (Bld)on 01-18 Erythrocyte distribution width (RBC) [Ratio] 16.4 % High 11.5-15.0 [facility] Comment on above: Order Comment: Speci men Type: BLOOD SPECIMENOrdering Facility: [facility] Address: [address] [place] [address] Performed By: #### 5 8410-2 ####[facility] LABORATORYCLIA [id number] [address] [place] Hematocrit (Bld) [Volume fraction] 31.9 % Low 36.0-46.0 [facility] Comment on above: Order Comment: Speci men Type: BLOOD SPECIMENOrdering Facility: [facility] Address: [address] [place] [address] Performed By: #### 5 8410-2 ####[facility] LABORATORYCLIA [id number] [place] [address] [place] Hemoglobin (Bld) [Mass/Vol] 10.7 g/dL Low 11.5-15.5 [facility] Comment on above: Order Comment: Speci men Type: BLOOD SPECIMENOrdering Facility: [facility] Address: [address] [place] [address] Performed By: #### 5 8410-2 ####[facility] LABORATORYCLIA [id number] [place] [address] [place] MCH (RBC) [Entitic mass] 30.7 pg Normal 26.0-34.0 [facility] Comment on above: Order Comment: Speci men Type: BLOOD SPECIMENOrdering Facility: [facility] Address: [address] [place] [address] Performed By: #### 5 8410-2 ####[facility] LABORATORYCLIA [id number] [address] STATES [facility] MCHC (RBC) [Mass/Vol] 33.5 g/dL Normal 30.5-36.0 [facility] Comment on above: Order Comment: Speci men Type: BLOOD SPECIMENOrdering Facility: [facility] Address: [address] [place] [address] Performed By: #### 5 8410-2 ####[facility] LABORATORYCLIA [id number] [address] OF [facility] MCV (RBC) [Entitic vol] 91.7 fL Normal 80.0-100.0 [facility] Comment on above: Order Comment: Speci men Type: BLOOD SPECIMENOrdering Facility: [facility] Address: [address] [place] [address] Performed By: #### 5 8410-2 ####[facility] LABORATORYCLIA [id number] [address] STATES OF [facility] Nucleated RBC (Bld) [#/Vol] 10*3/uL Normal <0.01 [facility] Comment on above: Order Comment: Speci men Type: BLOOD SPECIMENOrdering Facility: [facility] Address: [address] [place] [address] Performed By: #### 5 8410-2 ####[facility] LABORATORYCLIA [id number] [address] Platelet mean volume (Bld) [Entitic vol] 14.1 fL High 9.0-12.7 [facility] Comment on above: Order Comment: Speci men Type: BLOOD SPECIMENOrdering Facility: [facility] Address: [address] [place] [address] Performed By: #### 5 8410-2 ####[facility] LABORATORYCLIA [id number] [address] [place] Platelets (Bld) [#/Vol] 207 10*3/uL Normal 150-400 [facility] Comment on above: Order Comment: Speci men Type: BLOOD SPECIMENOrdering Facility: [facility] Address: [address] [place] [address] Result Comment: No c lot detected. Performed By: #### 5 8410-2 ####[facility] LABORATORYCLIA [id number] [address] STATES OF [facility] RBC (Bld) [#/Vol] 3.48 10*6/uL Low 3.90-5.20 [facility] Comment on above: Order Comment: Speci men Type: BLOOD SPECIMENOrdering Facility: [facility] Address: [address] [place] [address] Performed By: #### 5 8410-2 ####[facility] LABORATORYCLIA [id number] [address] [place] WBC (Bld) [#/Vol] 9.97 10*3/uL Normal 3.70-11.00 [facility] Comment on above: Order Comment: Speci men Type: BLOOD SPECIMENOrdering Facility: [facility] Address: [address] [place] [address] Performed By: #### 5 8410-2 ####[facility] LABORATORYCLIA [id number] [address] [place] CONSULTon 01-18-2025 CONSULT Normal [facility] CONSULT Normal [facility] CONSULT PROGon 01-18-2025 CONSULT PROG Normal [facility] Comprehensive metabolic 2000 panelon 01-18-2025 Albumin [Mass/Vol] 3.2 g/dL Low 3.9-4.9 [facility] Comment on above: Order Comment: Speci men Type: BLOOD SPECIMENOrdering Facility: [facility] Address: [address] [place] [address] Performed By: #### 2 4323-8 ####[facility] LABORATORYCLIA [id number] [address] [place] ALP [Catalytic activity/Vol] 261 U/L High 34-123 [facility] Comment on above: Order Comment: Speci men Type: BLOOD SPECIMENOrdering Facility: [facility] Address: [address] [place] [address] Performed By: #### 2 4323-8 ####[facility] LABORATORYCLIA [id number] [address] [place] ALT With P-5'-P [Catalytic activity/Vol] 88 U/L High 7-38 [facility] Comment on above: Order Comment: Speci men Type: BLOOD SPECIMENOrdering Facility: [facility] Address: [address] [place] [address] Performed By: #### 2 4323-8 ####[facility] LABORATORYCLIA [id number] [address] Anion gap [Moles/Vol] 14 mmol/L Normal 8-15 [facility] Comment on above: Order Comment: Speci men Type: BLOOD SPECIMENOrdering Facility: [facility] Address: [address] [place] [address] Performed By: #### 2 4323-8 ####[facility] LABORATORYCLIA [id number] [address] AST With P-5'-P [Catalytic activity/Vol] 33 U/L Normal 13-35 [facility] Comment on above: Order Comment: Speci men Type: BLOOD SPECIMENOrdering Facility: [facility] Address: [address] [place] [address] Performed By: #### 2 4323-8 ####[facility] LABORATORYCLIA [id number] [address] [place] Bilirubin [Mass/Vol] 4.8 mg/dL High 0.2-1.3 [facility] Comment on above: Order Comment: Speci men Type: BLOOD SPECIMENOrdering Facility: [facility] Address: [address] [place] [address] Performed By: #### 2 4323-8 ####[facility] LABORATORYCLIA [id number] [address] Calcium [Mass/Vol] 9.1 mg/dL Normal 8.5-10.2 [facility] Comment on above: Order Comment: Speci men Type: BLOOD SPECIMENOrdering Facility: [facility] Address: [address] [place] [address] Performed By: #### 2 4323-8 ####[facility] LABORATORYCLIA [id number] [place] [address] [place] Chloride [Moles/Vol] 100 mmol/L Normal 98-107 [facility] Comment on above: Order Comment: Speci men Type: BLOOD SPECIMENOrdering Facility: [facility] Address: [address] [place] [address] Performed By: #### 2 4323-8 ####[facility] LABORATORYCLIA [id number] [address] [place] CO2 [Moles/Vol] 20 mmol/L Low 22-30 [facility] Comment on above: Order Comment: Speci men Type: BLOOD SPECIMENOrdering Facility: [facility] Address: [address] [place] [address] Performed By: #### 2 4323-8 ####[facility] LABORATORYCLIA [id number] [address] [place] Creatinine [Mass/Vol] 0.63 mg/dL Normal 0.58-0.96 [facility] Comment on above: Order Comment: Speci men Type: BLOOD SPECIMENOrdering Facility: [facility] Address: [address] [place] [address] Performed By: #### 2 4323-8 ####[facility] LABORATORYCLIA [id number] [address] Creatinine and Glomerular filtration rate.predicted panel (S/P/Bld) 88 mL/min/1.73m??? Normal >=60 [facility] Comment on above: Order Comment: Speci men Type: BLOOD SPECIMENOrdering Facility: [facility] Address: [address] [place] [address] Result Comment: Kya mated Glomerular Filtration Rate (eGFR) is calculated using the 2020 CKD-EPI creatinine equation. This equation utilizes serum creatinine, sex, and age as parameters. The creatinine assay has traceable calibration to isotope dilution-mass spectrometry. Refer to KDIGO guidelines for clinical interpretation. In patients with unstable renal function, e.g. those with acute kidney injury, the eGFR may not accurately reflect actual GFR. Performed By: #### 2 4323-8 ####[facility] LABORATORYCLIA [id number] [place] [address] [place] Glucose [Mass/Vol] 244 mg/dL High 74-99 [facility] Comment on above: Order Comment: Dayron stinson Type: BLOOD SPECIMENOrdering Facility: [facility] Address: [address] [place] [address] Result Comment: The [place] [employer] (ADA) provides guidance for cutoff values for fasting glucose and random glucose. The ADA defines fasting as no caloric intake for at least 8 hours. Fasting plasma glucose results between 100 to 125 mg/dL indicate increased risk for diabetes (prediabetes).Fasting plasma glucose results greater than or equal to 126 mg/dL meet the criteria for diagnosis of diabetes. In the absence of unequivocal hyperglycemia, results should be confirmed by repeat testing. In a patient with classic symptoms of hyperglycemia or hyperglycemic crisis, random plasma glucose results greater than or equal to 200 mg/dL meet the criteria for diagnosis of diabetes.Reference: Standards of Medical Care in Diabetes 2016, [place] [employer]. Diabetes Care. 2016.39(Suppl 1). Performed By: #### 2 4323-8 ####[facility] LABORATORYCLIA [id number] [place] [address] [place] Potassium [Moles/Vol] 3.9 mmol/L Normal 3.7-5.1 [facility] Comment on above: Order Comment: Dayron stinson Type: BLOOD SPECIMENOrdering Facility: [facility] Address: [address] [place] [id number] Performed By: #### 2 4323-8 ####[facility] LABORATORYCLIA [id number] [place] [address] [place] Protein [Mass/Vol] 6.0 g/dL Low 6.3-8.0 [facility] Comment on above: Order Comment: Speci men Type: BLOOD SPECIMENOrdering Facility: [facility] Address: [address] [place] [address] Performed By: #### 2 4323-8 ####[facility] LABORATORYCLIA [id number] [place] [address] [place] Sodium [Moles/Vol] 134 mmol/L Low 136-144 [facility] Comment on above: Order Comment: Speci men Type: BLOOD SPECIMENOrdering Facility: [facility] Address: [address] [place] [address] Performed By: #### 2 4323-8 ####[facility] LABORATORYCLIA [id number] [address] [place] Urea nitrogen [Mass/Vol] 10 mg/dL Normal 7-21 [facility] Comment on above: Order Comment: Speci men Type: BLOOD SPECIMENOrdering Facility: [facility] Address: [address] [place] [address] Performed By: #### 2 4323-8 ####[facility] LABORATORYCLIA [id number] [address] [place] MEDICAL EMERon 01-18-2025 MEDICAL [place] Normal [facility] NUTRITIONon 01-18-2025 NUTRITION Normal [facility] PT EDon 01-18-2025 PT ED Normal [facility] CBC panel Auto (Bld)on 01-17 Erythrocyte distribution width (RBC) [Ratio] 17.0 % High 11.5-15.0 [facility] Comment on above: Order Comment: Speci men Type: BLOOD SPECIMENOrdering Facility: [facility] Address: [address] [place] [address] Performed By: #### 5 8410-2 ####[facility] LABORATORYCLIA [id number] [place] [address] [place]#### 26812-6 ####[facility] LABCLIA [id number] [place] [address] [place] Hematocrit (Bld) [Volume fraction] 35.7 % Low 36.0-46.0 [facility] Comment on above: Order Comment: Speci men Type: BLOOD SPECIMENOrdering Facility: [facility] Address: [address] [place] [address] Performed By: #### 5 8410-2 ####[facility] LABORATORYCLIA [id number] [address]#### 122[address]-8 ####[facility] LABCLIA [id number] [place] [address] [place] Hemoglobin (Bld) [Mass/Vol] 11.7 g/dL Normal 11.5-15.5 [facility] Comment on above: Order Comment: Speci men Type: BLOOD SPECIMENOrdering Facility: [facility] Address: [address] [place] [address] Performed By: #### 5 8410-2 ####[facility] LABORATORYCLIA [id number] [address]#### 69[address]-1 ####[facility] LABCLIA [id number] [address] [place] MCH (RBC) [Entitic mass] 30.0 pg Normal 26.0-34.0 [facility] Comment on above: Order Comment: Speci men Type: BLOOD SPECIMENOrdering Facility: [facility] Address: [address] [place] [address] Performed By: #### 5 8410-2 ####[facility] LABORATORYCLIA [id number] [address] [place]#### 37910-1 ####[facility] LABCLIA [id number] [place] [address] [place] MCHC (RBC) [Mass/Vol] 32.8 g/dL Normal 30.5-36.0 [facility] Comment on above: Order Comment: Speci men Type: BLOOD SPECIMENOrdering Facility: [facility] Address: [address] [place] [address] Performed By: #### 5 8410-2 ####[facility] LABORATORYCLIA [id number] [address]#### 67099-9 ####[facility] LABCLIA [id number] [place] [address] [place] MCV (RBC) [Entitic vol] 91.5 fL Normal 80.0-100.0 [facility] Comment on above: Order Comment: Speci men Type: BLOOD SPECIMENOrdering Facility: [facility] Address: [address] [place] [address] Performed By: #### 5 8410-2 ####[facility] LABORATORYCLIA [id number] [address]#### 09867-5 ####[facility] LABCLIA [id number] [place] [address] [place] Nucleated RBC (Bld) [#/Vol] 10*3/uL Normal <0.01 [facility] Comment on above: Order Comment: Speci men Type: BLOOD SPECIMENOrdering Facility: [facility] Address: [address] [place] [address] Performed By: #### 5 8410-2 ####[facility] LABORATORYCLIA [id number] [address]#### 18251-9 ####[facility] LABCLIA [id number] [place] [address] [place] Platelet mean volume (Bld) [Entitic vol] 13.9 fL High 9.0-12.7 [facility] Comment on above: Order Comment: Speci men Type: BLOOD SPECIMENOrdering Facility: [facility] Address: [address] [place] [address] Performed By: #### 5 8410-2 ####[facility][1]CLIA [id number] [address] [place]#### 67928-7 ####[facility] LABCLIA [id number] [place] [address] [place] Platelets (Bld) [#/Vol] 212 10*3/uL Normal 150-400 [facility] Comment on above: Order Comment: Speci men Type: BLOOD SPECIMENOrdering Facility: [facility] Address: [address] [place] [address] Result Comment: Plat elet count confirmed by manual review of peripheral blood smear. No clot detected. Performed By: #### 5 8410-2 ####[facility] LABORATORYCLIA [id number] [address] [place]#### 05751-8 ####[facility] LABCLIA [id number] [place] [address] [place] RBC (Bld) [#/Vol] 3.90 10*6/uL Normal 3.90-5.20 [facility] Comment on above: Order Comment: Speci men Type: BLOOD SPECIMENOrdering Facility: [facility] Address: [address] [place] [address] Performed By: #### 5 8410-2 ####[facility] LABORATORYCLIA [id number] [address] [place]#### 05812-3 ####[facility] LABCLIA [id number] [place] [address] [place] WBC (Bld) [#/Vol] 13.38 10*3/uL High 3.70-11.00 [facility] Comment on above: Order Comment: Speci men Type: BLOOD SPECIMENOrdering Facility: [facility] Address: [address] [place] [address] Performed By: #### 5 8410-2 ####[facility] LABORATORYCLIA [id number] [place] [address] [place]#### 01801-0 ####[facility] LABCLIA [id number] [address] [place] Comprehensive metabolic 2000 panelon 01-17-2025 Albumin [Mass/Vol] 3.7 g/dL Low 3.9-4.9 [facility] Comment on above: Order Comment: Speci men Type: BLOOD SPECIMENOrdering Facility: [facility] Address: [address] [place] [address] Performed By: #### 2 4323-8 ####[facility] LABORATORYCLIA [id number] [address] [place] ALP [Catalytic activity/Vol] 350 U/L High 34-123 [facility] Comment on above: Order Comment: Speci men Type: BLOOD SPECIMENOrdering Facility: [facility] Address: [address] [place] [address] Performed By: #### 2 4323-8 ####[facility] LABORATORYCLIA [id number] [address] [place] ALT With P-5'-P [Catalytic activity/Vol] 137 U/L High 7-38 [facility] Comment on above: Order Comment: Speci men Type: BLOOD SPECIMENOrdering Facility: [facility] Address: [address] [place] [address] Performed By: #### 2 4323-8 ####[facility] LABORATORYCLIA [id number] [address] [place] Anion gap [Moles/Vol] 19 mmol/L High 8-15 [facility] Comment on above: Order Comment: Speci men Type: BLOOD SPECIMENOrdering Facility: [facility] Address: [address] [place] [address] Performed By: #### 2 4323-8 ####[facility] LABORATORYCLIA [id number] [place] [address] [place] AST With P-5'-P [Catalytic activity/Vol] 47 U/L High 13-35 [facility] Comment on above: Order Comment: Speci men Type: BLOOD SPECIMENOrdering Facility: [facility] Address: [address] [place] [address] Performed By: #### 2 4323-8 ####[facility] LABORATORYCLIA [id number] [place] [address] [place] Bilirubin [Mass/Vol] 6.6 mg/dL High 0.2-1.3 [facility] Comment on above: Order Comment: Speci men Type: BLOOD SPECIMENOrdering Facility: [facility] Address: [address] [place] [address] Performed By: #### 2 4323-8 ####[facility] LABORATORYCLIA [id number] [place] [address] [place] Calcium [Mass/Vol] 9.5 mg/dL Normal 8.5-10.2 [facility] Comment on above: Order Comment: Speci men Type: BLOOD SPECIMENOrdering Facility: [facility] Address: [address] [place] [address] Performed By: #### 2 4323-8 ####[facility] LABORATORYCLIA [id number] [place] [address] [place] Chloride [Moles/Vol] 95 mmol/L Low 98-107 [facility] Comment on above: Order Comment: Speci men Type: BLOOD SPECIMENOrdering Facility: [facility] Address: [address] [place] [address] Performed By: #### 2 4323-8 ####[facility] LABORATORYCLIA [id number] [place] [address] [place] CO2 [Moles/Vol] 17 mmol/L Low 22-30 [facility] Comment on above: Order Comment: Speci men Type: BLOOD SPECIMENOrdering Facility: [facility] Address: [address] [place] [address] Performed By: #### 2 4323-8 ####[facility] LABORATORYCLIA [id number] [place] [address] [place] Creatinine [Mass/Vol] 0.55 mg/dL Low 0.58-0.96 [facility] Comment on above: Order Comment: Dayron stinson Type: BLOOD SPECIMENOrdering Facility: [facility] Address: [address] [place] [address] Performed By: #### 2 4323-8 ####[facility] LABORATORYCLIA [id number] [address] Creatinine and Glomerular filtration rate.predicted panel (S/P/Bld) 91 mL/min/1.73m??? Normal >=60 [facility] Comment on above: Order Comment: Dayron stinson Type: BLOOD SPECIMENOrdering Facility: [facility] Address: [address] [place] [address] Result Comment: Kya mated Glomerular Filtration Rate (eGFR) is calculated using the 2020 CKD-EPI creatinine equation. This equation utilizes serum creatinine, sex, and age as parameters. The creatinine assay has traceable calibration to isotope dilution-mass spectrometry. Refer to KDIGO guidelines for clinical interpretation. In patients with unstable renal function, e.g. those with acute kidney injury, the eGFR may not accurately reflect actual GFR. Performed By: #### 2 4323-8 ####[facility] LABORATORYCLIA [id number] [address] STATES OF [facility] Glucose [Mass/Vol] 276 mg/dL High 74-99 [facility] Comment on above: Order Comment: Dayron stinson Type: BLOOD SPECIMENOrdering Facility: [facility] Address: [address] [place] [address] Result Comment: The [place] [employer] (ADA) provides guidance for cutoff values for fasting glucose and random glucose. The ADA defines fasting as no caloric intake for at least 8 hours. Fasting plasma glucose results between 100 to 125 mg/dL indicate increased risk for diabetes (prediabetes).Fasting plasma glucose results greater than or equal to 126 mg/dL meet the criteria for diagnosis of diabetes. In the absence of unequivocal hyperglycemia, results should be confirmed by repeat testing. In a patient with classic symptoms of hyperglycemia or hyperglycemic crisis, random plasma glucose results greater than or equal to 200 mg/dL meet the criteria for diagnosis of diabetes.Reference: Standards of Medical Care in Diabetes 2016, [place] [employer]. Diabetes Care. 2016.39(Suppl 1). Performed By: #### 2 4323-8 ####[facility] LABORATORYCLIA [id number] [place] [address] [place] Potassium [Moles/Vol] 4.2 mmol/L Normal 3.7-5.1 [facility] Comment on above: Order Comment: Speci men Type: BLOOD SPECIMENOrdering Facility: [facility] Address: [address] [place] [address] Performed By: #### 2 4323-8 ####[facility] LABORATORYCLIA [id number] [address] [place] Protein [Mass/Vol] 6.6 g/dL Normal 6.3-8.0 [facility] Comment on above: Order Comment: Speci men Type: BLOOD SPECIMENOrdering Facility: [facility] Address: [address] [place] [address] Performed By: #### 2 4323-8 ####[facility] LABORATORYCLIA [id number] [address] [place] Sodium [Moles/Vol] 131 mmol/L Low 136-144 [facility] Comment on above: Order Comment: Speci men Type: BLOOD SPECIMENOrdering Facility: [facility] Address: [address] [place] [address] Performed By: #### 2 4323-8 ####[facility] LABORATORYCLIA [id number] [address] [place] Urea nitrogen [Mass/Vol] 11 mg/dL Normal 7-21 [facility] Comment on above: Order Comment: Speci men Type: BLOOD SPECIMENOrdering Facility: [facility] Address: [address] [place] [address] Performed By: #### 2 4323-8 ####[facility] LABORATORYCLIA [id number] [address] [place] HbA1c (Bld)on 01-17-2025 Average glucose Estimated from glycated hemoglobin (Bld) [Mass/Vol] 258 mg/dL Normal [facility] Comment on above: Order Comment: Speci men Type: BLOOD SPECIMENOrdering Facility: [facility] Address: [address] [place] [address] Result Comment: eAG: (Estimated average glucose) is a calculated value from HgbA1c and is business office representative of the average blood glucose level in the last 2-3 month period. Performed By: #### 5 8410-2 ####[facility] LABORATORYCLIA [id number] [address]#### [address]-3 ####[facility] LABCLIA [id number] [address] [place] HbA1c (Bld) [Mass fraction] 10.6 % High 4.3-5.6 [facility] Comment on above: Order Comment: Speci men Type: BLOOD SPECIMENOrdering Facility: [facility] Address: [address] [place] [address] Result Comment: [place] Diabetes Association guidelines indicate that patients with HgbA1c in the range 5.7-6.4% are at increased risk for development of diabetes, and intervention by lifestyle modification may be beneficial. HgbA1c greater or equal to 6.5% is considered diagnostic of diabetes. Performed By: #### 5 8410-2 ####[facility] LABORATORYCLIA [id number] [address]#### [address]-7 ####[facility] LABCLIA [id number] [address] [place] ALLIED HEALTHon 01-16-2025 ALLIED HEALTH Normal [facility] CBC panel Auto (Bld)on 01-16 Erythrocyte distribution width (RBC) [Ratio] 16.8 % High 11.5-15.0 [facility] Comment on above: Order Comment: Speci men Type: BLOOD SPECIMENOrdering Facility: [facility] Address: [address] [place] [address] Performed By: #### 5 8410-2 ####[facility] LABORATORYCLIA [id number] [address] Hematocrit (Bld) [Volume fraction] 36.9 % Normal 36.0-46.0 [facility] Comment on above: Order Comment: Speci men Type: BLOOD SPECIMENOrdering Facility: [facility] Address: [address] [place] [address] Performed By: #### 5 8410-2 ####[facility] LABORATORYCLIA [id number] [address] Hemoglobin (Bld) [Mass/Vol] 12.4 g/dL Normal 11.5-15.5 [facility] Comment on above: Order Comment: Speci men Type: BLOOD SPECIMENOrdering Facility: [facility] Address: [address] [place] [address] Performed By: #### 5 8410-2 ####[facility] LABORATORYCLIA [id number] [address] STATES [facility] MCH (RBC) [Entitic mass] 29.7 pg Normal 26.0-34.0 [facility] Comment on above: Order Comment: Speci men Type: BLOOD SPECIMENOrdering Facility: [facility] Address: [address] [place] [address] Performed By: #### 5 8410-2 ####[facility] LABORATORYCLIA [id number] [address] [place] MCHC (RBC) [Mass/Vol] 33.6 g/dL Normal 30.5-36.0 [facility] Comment on above: Order Comment: Speci men Type: BLOOD SPECIMENOrdering Facility: [facility] Address: [address] [place] [address] Performed By: #### 5 8410-2 ####[facility] LABORATORYCLIA [id number] [address] MCV (RBC) [Entitic vol] 88.5 fL Normal 80.0-100.0 [facility] Comment on above: Order Comment: Speci men Type: BLOOD SPECIMENOrdering Facility: [facility] Address: [address] [place] [address] Performed By: #### 5 8410-2 ####[facility] LABORATORYCLIA [id number] [address] STATES OF [facility] Nucleated RBC (Bld) [#/Vol] 10*3/uL Normal <0.01 [facility] Comment on above: Order Comment: Speci men Type: BLOOD SPECIMENOrdering Facility: [facility] Address: [address] [place] [address] Performed By: #### 5 8410-2 ####[facility] LABORATORYCLIA [id number] [address] [place] Platelet mean volume (Bld) [Entitic vol] 13.4 fL High 9.0-12.7 [facility] Comment on above: Order Comment: Speci men Type: BLOOD SPECIMENOrdering Facility: [facility] Address: [address] [place] [address] Performed By: #### 5 8410-2 ####[facility] LABORATORYCLIA [id number] [place] [address] [place] Platelets (Bld) [#/Vol] 210 10*3/uL Normal 150-400 [facility] Comment on above: Order Comment: Speci men Type: BLOOD SPECIMENOrdering Facility: [facility] Address: [address] [place] [address] Result Comment: Plat elet count confirmed by manual review of peripheral blood smear. No clot detected. Performed By: #### 5 8410-2 ####[facility] LABORATORYCLIA [id number] [address] [place] RBC (Bld) [#/Vol] 4.17 10*6/uL Normal 3.90-5.20 [facility] Comment on above: Order Comment: Speci men Type: BLOOD SPECIMENOrdering Facility: [facility] Address: [address] [place] [address] Performed By: #### 5 8410-2 ####[facility] LABORATORYCLIA [id number] [place] [address] [place] WBC (Bld) [#/Vol] 13.14 10*3/uL High 3.70-11.00 [facility] Comment on above: Order Comment: Specbertrand stinson Type: BLOOD SPECIMENOrdering Facility: [facility] Address: [address] [place] [address] Result Comment: Resu lts checked and verified. Performed By: #### 5 8410-2 ####[facility] LABORATORYCLIA [id number] [address] [place] CEA SerPl-mCncon 01-16-2025 Carcinoembryonic Ag [Mass/Vol] 4.6 ng/mL High <3.0 [facility] Comment on above: Order Comment: Dayron stinson Type: BLOOD SPECIMENOrdering Facility: [facility] Address: [address] [place] [address] Result Comment: This is a [employer] assay using chemiluminescence test methodology. Results determined by different manufacturers may not be comparable Performed By: #### 2 4108-3, 2039-03 ####[facility] LABORATORYCLIA [id number] [address] [place] CONSULTon 01-16-2025 CONSULT Normal [facility] CT CHEST WO IVCONon 01-17-20 CT CHEST WO IVCON Normal [facility] Cancer Ag19-9 SerPl-aCncon 0 01-16-2025 Cancer Ag 19-9 Qn 306.0 [arb'U]/mL High <36.0 [facility] Comment on above: Order Comment: Speci men Type: BLOOD SPECIMENOrdering Facility: [facility] Address: [address] [place] [address] Result Comment: Canc er antigen 19-9 test is used as an aid in monitoring response to treatment or recurrence in patients with established pancreatic, hepatobiliary, or gastrointestinal malignancies. Clinical correlation is required.The CA 19-9 test methodology used is the Electrochemiluminescence Immunoassay by [employer]. Results obtained with different methods or kits cannot be used interchangeably. Performed By: #### 2 4108-3, 2039-03 ####[facility] LABORATORYCLIA [id number] [address] [place] Comprehensive metabolic 2000 panelon 01-16-2025 Albumin [Mass/Vol] 3.8 g/dL Low 3.9-4.9 [facility] Comment on above: Order Comment: Speci men Type: BLOOD SPECIMENOrdering Facility: [facility] Address: [address] [place] [address] Performed By: #### 2 4323-8 ####[facility] LABORATORYCLIA [id number] [address] [place] ALP [Catalytic activity/Vol] 418 U/L High 34-123 [facility] Comment on above: Order Comment: Speci men Type: BLOOD SPECIMENOrdering Facility: [facility] Address: [address] [place] [address] Performed By: #### 2 4323-8 ####[facility] LABORATORYCLIA [id number] [address] STATES [facility] ALT With P-5'-P [Catalytic activity/Vol] 196 U/L High 7-38 [facility] Comment on above: Order Comment: Speci men Type: BLOOD SPECIMENOrdering Facility: [facility] Address: [address] [place] [address] Performed By: #### 2 4323-8 ####[facility] LABORATORYCLIA [id number] [address] [place] Anion gap [Moles/Vol] 17 mmol/L High 8-15 [facility] Comment on above: Order Comment: Speci men Type: BLOOD SPECIMENOrdering Facility: [facility] Address: [address] [place] [address] Performed By: #### 2 4323-8 ####[facility] LABORATORYCLIA [id number] [address] [place] AST With P-5'-P [Catalytic activity/Vol] 99 U/L High 13-35 [facility] Comment on above: Order Comment: Speci men Type: BLOOD SPECIMENOrdering Facility: [facility] Address: [address] [place] [address] Performed By: #### 2 4323-8 ####[facility]ORATORYCLIA [id number] [place] [address] [place] Bilirubin [Mass/Vol] 10.2 mg/dL High 0.2-1.3 [facility] Comment on above: Order Comment: Speci men Type: BLOOD SPECIMENOrdering Facility: [facility] Address: [address] [place] [address] Performed By: #### 2 4323-8 ####[facility] LABORATORYCLIA [id number] [place] [address] [place] Calcium [Mass/Vol] 9.1 mg/dL Normal 8.5-10.2 [facility] Comment on above: Order Comment: Speci men Type: BLOOD SPECIMENOrdering Facility: [facility] Address: [address] [place] [address] Performed By: #### 2 4323-8 ####[facility] LABORATORYCLIA [id number] [place] [address] [place] Chloride [Moles/Vol] 93 mmol/L Low 98-107 [facility] Comment on above: Order Comment: Speci men Type: BLOOD SPECIMENOrdering Facility: [facility] Address: [address] [place] [address] Performed By: #### 2 4323-8 ####[facility] LABORATORYCLIA [id number] [place] [address] [place] CO2 [Moles/Vol] 19 mmol/L Low 22-30 [facility] Comment on above: Order Comment: Speci men Type: BLOOD SPECIMENOrdering Facility: [facility] Address: [address] [place] [address] Performed By: #### 2 4323-8 ####[facility] LABORATORYCLIA [id number] [place] [address] [place] Creatinine [Mass/Vol] 0.49 mg/dL Low 0.58-0.96 [facility] Comment on above: Order Comment: Dayron stinson Type: BLOOD SPECIMENOrdering Facility: [facility] Address: [address] [place] [address] Performed By: #### 2 4323-8 ####[facility] LABORATORYCLIA [id number] [address] [place] Creatinine and Glomerular filtration rate.predicted panel (S/P/Bld) 93 mL/min/1.73m??? Normal >=60 [facility] Comment on above: Order Comment: Elinorbertrand stinson Type: BLOOD SPECIMENOrdering Facility: [facility] Address: [address] [place] [address] Result Comment: Kya mated Glomerular Filtration Rate (eGFR) is calculated using the 2020 CKD-EPI creatinine equation. This equation utilizes serum creatinine, sex, and age as parameters. The creatinine assay has traceable calibration to isotope dilution-mass spectrometry. Refer to KDIGO guidelines for clinical interpretation. In patients with unstable renal function, e.g. those with acute kidney injury, the eGFR may not accurately reflect actual GFR. Performed By: #### 2 4323-8 ####[facility] LABORATORYCLIA [id number] [place] [address] [place] Glucose [Mass/Vol] 258 mg/dL High 74-99 [facility] Comment on above: Order Comment: Dayron stinson Type: BLOOD SPECIMENOrdering Facility: [facility] Address: [address] [place] [address] Result Comment: The [place] Diabetes Association (ADA) provides guidance for cutoff values for fasting glucose and random glucose. The ADA defines fasting as no caloric intake for at least 8 hours. Fasting plasma glucose results between 100 to 125 mg/dL indicate increased risk for diabetes (prediabetes).Fasting plasma glucose results greater than or equal to 126 mg/dL meet the criteria for diagnosis of diabetes. In the absence of unequivocal hyperglycemia, results should be confirmed by repeat testing. In a patient with classic symptoms of hyperglycemia or hyperglycemic crisis, random plasma glucose results greater than or equal to 200 mg/dL meet the criteria for diagnosis of diabetes.Reference: Standards of Medical Care in Diabetes 2016, [place] Diabetes Association. Diabetes Care. 2016.39(Suppl 1). Performed By: #### 2 4323-8 ####[facility] LABORATORYCLIA [id number] [place] [address] [place] Potassium [Moles/Vol] 3.3 mmol/L Low 3.7-5.1 [facility] Comment on above: Order Comment: Speci men Type: BLOOD SPECIMENOrdering Facility: [facility] Address: [address] [place] [address] Performed By: #### 2 4323-8 ####[facility] LABORATORYCLIA [id number] [place] [address] [place] Protein [Mass/Vol] 6.4 g/dL Normal 6.3-8.0 [facility] Comment on above: Order Comment: Speci men Type: BLOOD SPECIMENOrdering Facility: [facility] Address: [address] [place] [address] Performed By: #### 2 4323-8 ####[facility] LABORATORYCLIA [id number] [place] [address] [place] Sodium [Moles/Vol] 129 mmol/L Low 136-144 [facility] Comment on above: Order Comment: Speci men Type: BLOOD SPECIMENOrdering Facility: [facility] Address: [address] [place] [address] Performed By: #### 2 4323-8 ####[facility] LABORATORYCLIA [id number] [place] [address] [place] Urea nitrogen [Mass/Vol] 7 mg/dL Normal 7-21 [facility] Comment on above: Order Comment: Speci men Type: BLOOD SPECIMENOrdering Facility: [facility] Address: [address] [place] [address] Performed By: #### 2 4323-8 ####[facility] LABORATORYCLIA [id number] [place] [address] [place] ANES POSTPROC EVALon 025 ANES POSTPROC EVAL Normal [facility] ANES PRE-OPon 01-15-2025 ANES PRE-OP Normal [facility] CASE MGT INIT ASSESon 2024 CASE MGT INIT ASSES Normal [facility] CBC W Auto Differential pane l (Bld)on 01-15-2025 Basophils (Bld) [#/Vol] 0.04 10*3/uL Normal <0.11 [facility] Comment on above: Order Comment: Speci men Type: BLOOD SPECIMENOrdering Facility: [facility] Address: [address] [place] [address] Performed By: #### 5 7021-8 ####[facility] LABORATORYCLIA [id number] [address] [place] Basophils/100 WBC (Bld) 0.8 % Normal [facility] Comment on above: Order Comment: Speci men Type: BLOOD SPECIMENOrdering Facility: [facility] Address: [address] [place] [address] Performed By: #### 5 7021-8 ####[facility] LABORATORYCLIA [id number] [address] [place] Differential cell count method Nom (Bld) Auto Normal [facility] Comment on above: Order Comment: Speci men Type: BLOOD SPECIMENOrdering Facility: [facility] Address: [address] [place] [address] Performed By: #### 5 7021-8 ####[facility] LABORATORYCLIA [id number] [address] [place] Eosinophils (Bld) [#/Vol] 0.09 10*3/uL Normal <0.46 [facility] Comment on above: Order Comment: Speci men Type: BLOOD SPECIMENOrdering Facility: [facility] Address: [address] [place] [address] Performed By: #### 5 7021-8 ####[facility] LABORATORYCLIA [id number] [address] [place] Eosinophils/100 WBC (Bld) 1.7 % Normal [facility] Comment on above: Order Comment: Speci men Type: BLOOD SPECIMENOrdering Facility: [facility] Address: [address] [place] [address] Performed By: #### 5 7021-8 ####[facility] LABORATORYCLIA [id number] [address] [place] Erythrocyte distribution width (RBC) [Ratio] 17.2 % High 11.5-15.0 [facility] Comment on above: Order Comment: Speci men Type: BLOOD SPECIMENOrdering Facility: [facility] Address: [address] [place] [address] Performed By: #### 5 7021-8 ####[facility] LABORATORYCLIA [id number] [address] [place] Hematocrit (Bld) [Volume fraction] 31.2 % Low 36.0-46.0 [facility] Comment on above: Order Comment: Speci men Type: BLOOD SPECIMENOrdering Facility: [facility] Address: [address] [place] [address] Performed By: #### 5 7021-8 ####[facility] LABORATORYCLIA [id number] [address] [place] Hemoglobin (Bld) [Mass/Vol] 10.9 g/dL Low 11.5-15.5 [facility] Comment on above: Order Comment: Speci men Type: BLOOD SPECIMENOrdering Facility: [facility] Address: [address] [place] [address] Performed By: #### 5 7021-8 ####[facility] LABORATORYCLIA [id number] [address] [place] Immature granulocytes (Bld) [#/Vol] 0.03 10*3/uL Normal <0.10 [facility] Comment on above: Order Comment: Speci men Type: BLOOD SPECIMENOrdering Facility: [facility] Address: [address] [place] [address] Performed By: #### 5 7021-8 ####[facility] LABORATORYCLIA [id number] [address] [place] Immature granulocytes/100 WBC (Bld) 0.6 % Normal [facility] Comment on above: Order Comment: Speci men Type: BLOOD SPECIMENOrdering Facility: [facility] Address: [address] [place] [address] Performed By: #### 5 7021-8 ####[facility] LABORATORYCLIA [id number] [address] Lymphocytes (Bld) [#/Vol] 0.98 10*3/uL Low 1.00-4.00 [facility] Comment on above: Order Comment: Speci men Type: BLOOD SPECIMENOrdering Facility: [facility] Address: [address] [place] [address] Performed By: #### 5 7021-8 ####[facility] LABORATORYCLIA [id number] [address] Lymphocytes/100 WBC (Bld) 18.6 % Normal [facility] Comment on above: Order Comment: Speci men Type: BLOOD SPECIMENOrdering Facility: [facility] Address: [address] [place] [address] Performed By: #### 5 7021-8 ####[facility] LABORATORYCLIA [id number] [address] [place] [facility] MCH (RBC) [Entitic mass] 30.8 pg Normal 26.0-34.0 [facility] Comment on above: Order Comment: Speci men Type: BLOOD SPECIMENOrdering Facility: [facility] Address: [address] [place] [address] Performed By: #### 5 7021-8 ####[facility] LABORATORYCLIA [id number] [address] [place] MCHC (RBC) [Mass/Vol] 34.9 g/dL Normal 30.5-36.0 [facility] Comment on above: Order Comment: Speci men Type: BLOOD SPECIMENOrdering Facility: [facility] Address: [address] [place] [address] Performed By: #### 5 7021-8 ####[facility] LABORATORYCLIA [id number] [place] [address] [place] MCV (RBC) [Entitic vol] 88.1 fL Normal 80.0-100.0 [facility] Comment on above: Order Comment: Speci men Type: BLOOD SPECIMENOrdering Facility: [facility] Address: [address] [place] [address] Performed By: #### 5 7021-8 ####[facility] LABORATORYCLIA [id number] [place] [address] [place] Monocytes (Bld) [#/Vol] 0.65 10*3/uL Normal <0.87 [facility] Comment on above: Order Comment: Speci men Type: BLOOD SPECIMENOrdering Facility: [facility] Address: [address] [place] [address] Performed By: #### 5 7021-8 ####[facility] LABORATORYCLIA [id number] [address] [place] Monocytes/100 WBC (Bld) 12.3 % Normal [facility] Comment on above: Order Comment: Speci men Type: BLOOD SPECIMENOrdering Facility: [facility] Address: [address] [place] [address] Performed By: #### 5 7021-8 ####[facility] LABORATORYCLIA [id number] [address] [place] Neutrophils (Bld) [#/Vol] 3.48 10*3/uL Normal 1.45-7.50 [facility] Comment on above: Order Comment: Speci men Type: BLOOD SPECIMENOrdering Facility: [facility] Address: [address] [place] [address] Performed By: #### 5 7021-8 ####[facility]ORATORYCLIA [id number] [address] [place] Neutrophils/100 WBC (Bld) 66.0 % Normal [facility] Comment on above: Order Comment: Speci men Type: BLOOD SPECIMENOrdering Facility: [facility] Address: [address] [place] [address] Performed By: #### 5 7021-8 ####[facility]ORATORYCLIA [id number] [address] [place] Nucleated RBC (Bld) [#/Vol] 10*3/uL Normal <0.01 [facility] Comment on above: Order Comment: Speci men Type: BLOOD SPECIMENOrdering Facility: [facility] Address: [address] [place] [address] Performed By: #### 5 7021-8 ####[facility] LABORATORYCLIA [id number] [address] [place] Nucleated RBC/100 WBC (Bld) [Ratio] 0.0 /100 WBC Normal [facility] Comment on above: Order Comment: Speci men Type: BLOOD SPECIMENOrdering Facility: [facility] Address: [address] [place] [address] Performed By: #### 5 7021-8 ####[facility] LABORATORYCLIA [id number] [address] [place] [facility] Platelet mean volume (Bld) [Entitic vol] Normal [facility] Comment on above: Order Comment: Speci men Type: BLOOD SPECIMENOrdering Facility: [facility] Address: [address] [place] [address] Result Comment: Unab le to Report. Performed By: #### 5 7021-8 ####[facility] LABORATORYCLIA [id number] [address] [place] Platelets (Bld) [#/Vol] 168 10*3/uL Normal 150-400 [facility] Comment on above: Order Comment: Speci men Type: BLOOD SPECIMENOrdering Facility: [facility] Address: [address] [place] [address] Result Comment: No c lot detected. Performed By: #### 5 7021-8 ####[facility] LABORATORYCLIA [id number] [address] [place] RBC (Bld) [#/Vol] 3.54 10*6/uL Low 3.90-5.20 [facility] Comment on above: Order Comment: Speci men Type: BLOOD SPECIMENOrdering Facility: [facility] Address: [address] [place] [address] Performed By: #### 5 7021-8 ####[facility] [facility]ATORYCLIA [id number] [address] [place] WBC (Bld) [#/Vol] 5.27 10*3/uL Normal 3.70-11.00 [facility] Comment on above: Order Comment: Speci men Type: BLOOD SPECIMENOrdering Facility: [facility] Address: [address] [place] [address] Performed By: #### 5 7021-8 ####[facility] LABORATORYCLIA [id number] [address] [place] CONSULTon 01-15-2025 CONSULT Normal [facility] Comprehensive metabolic 2000 panelon 01-15-2025 Albumin [Mass/Vol] 3.5 g/dL Low 3.9-4.9 [facility] Comment on above: Order Comment: Speci men Type: BLOOD SPECIMENOrdering Facility: [facility] Address: [address] [place] [address] Performed By: #### 2 4323-8, 54751-0 ####[facility] LABORATORYCLIA [id number] [place] [address] [place] ALP [Catalytic activity/Vol] 393 U/L High 34-123 [facility] Comment on above: Order Comment: Speci men Type: BLOOD SPECIMENOrdering Facility: [facility] Address: [address] [place] [address] Performed By: #### 2 4323-8, 07439-5 ####[facility] LABORATORYCLIA [id number] [place] [id number] [place] ALT With P-5'-P [Catalytic activity/Vol] Normal [facility] Comment on above: Order Comment: Speci men Type: BLOOD SPECIMENOrdering Facility: [facility] Address: [address] [place] [address] Result Comment: Unab le to assay due to interference from hemolysis. Suggest reorder as clinically indicated. Performed By: #### 2 4323-8, ####[facility] LABORATORYCLIA [id number] [place] [address] [place] Anion gap [Moles/Vol] 16 mmol/L High 8-15 [facility] Comment on above: Order Comment: Speci men Type: BLOOD SPECIMENOrdering Facility: [facility] Address: [address] [place] [address] Performed By: #### 2 4328, ####[facility] LABORATORYCLIA [id number] [place] [address] [place] AST With P-5'-P [Catalytic activity/Vol] Normal [facility] Comment on above: Order Comment: Speci men Type: BLOOD SPECIMENOrdering Facility: [facility] Address: [address] [place] [address] Result Comment: Unab le to assay due to interference from hemolysis. Suggest reorder as clinically indicated. Performed By: #### 2 4328, ####[facility] LABORATORYCLIA [id number] [place] [address] [place] Bilirubin [Mass/Vol] 16.6 mg/dL High 0.2-1.3 [facility] Comment on above: Order Comment: Speci men Type: BLOOD SPECIMENOrdering Facility: [facility] Address: [address] [place] [address] Performed By: #### 2 4328, ####[facility] LABORATORYCLIA [id number] [address] [place] Calcium [Mass/Vol] 9.2 mg/dL Normal 8.5-10.2 [facility] Comment on above: Order Comment: Speci men Type: BLOOD SPECIMENOrdering Facility: [facility] Address: [address] [place] [address] Performed By: #### 2 4323-8, ####[facility] LABORATORYCLIA [id number] [place] [address] [place] Chloride [Moles/Vol] 102 mmol/L Normal 98-107 [facility] Comment on above: Order Comment: Speci men Type: BLOOD SPECIMENOrdering Facility: [facility] Address: [address] [place] [address] Performed By: #### 2 4323-8, ####[facility] LABORATORYCLIA [id number] [address] CO2 [Moles/Vol] 16 mmol/L Low 22-30 [facility] Comment on above: Order Comment: Speci men Type: BLOOD SPECIMENOrdering Facility: [facility] Address: [address] [place] [address] Performed By: #### 2 4328, ####[facility] LABORATORYCLIA [id number] [address] Creatinine [Mass/Vol] 0.47 mg/dL Low 0.58-0.96 [facility] Comment on above: Order Comment: Speci men Type: BLOOD SPECIMENOrdering Facility: [facility] Address: [address] [place] [address] Performed By: #### 2 4323-8, ####[facility] LABORATORYCLIA [id number] [address] Creatinine and Glomerular filtration rate.predicted panel (S/P/Bld) 94 mL/min/1.73m??? Normal >=60 [facility] Comment on above: Order Comment: Speci men Type: BLOOD SPECIMENOrdering Facility: [facility] Address: [address] [place] [address] Result Comment: Kya mated Glomerular Filtration Rate (eGFR) is calculated using the 2020 CKD-EPI creatinine equation. This equation utilizes serum creatinine, sex, and age as parameters. The creatinine assay has traceable calibration to isotope dilution-mass spectrometry. Refer to KDIGO guidelines for clinical interpretation. In patients with unstable renal function, e.g. those with acute kidney injury, the eGFR may not accurately reflect actual GFR. Performed By: #### 2 4323-8, ####[facility] LABORATORYCLIA [id number] [place] [address] [place] Glucose [Mass/Vol] 225 mg/dL High 74-99 [facility] Comment on above: Order Comment: Speci men Type: BLOOD SPECIMENOrdering Facility: [facility] Address: [address] [place] [address] Result Comment: The [place] [employer] (ADA) provides guidance for cutoff values for fasting glucose and random glucose. The ADA defines fasting as no caloric intake for at least 8 hours. Fasting plasma glucose results between 100 to 125 mg/dL indicate increased risk for diabetes (prediabetes).Fasting plasma glucose results greater than or equal to 126 mg/dL meet the criteria for diagnosis of diabetes. In the absence of unequivocal hyperglycemia, results should be confirmed by repeat testing. In a patient with classic symptoms of hyperglycemia or hyperglycemic crisis, random plasma glucose results greater than or equal to 200 mg/dL meet the criteria for diagnosis of diabetes.Reference: Standards of Medical Care in Diabetes 2016, [place] [employer]. Diabetes Care. 2016.39(Suppl 1). Performed By: #### 2 4328, ####[facility] LABORATORYCLIA [id number] [place] [address] [place] Potassium [Moles/Vol] Normal [facility] Comment on above: Order Comment: Dayron stinson Type: BLOOD SPECIMENOrdering Facility: [facility] Address: [address] [place] [address] Result Comment: Unab le to assay due to interference from hemolysis. Suggest reorder as clinically indicated. Performed By: #### 2 4328, ####[facility] LABORATORYCLIA [id number] [place] [address] [place] Protein [Mass/Vol] Normal [facility] Comment on above: Order Comment: Speci shantell Type: BLOOD SPECIMENOrdering Facility: [facility] Address: [address] [place] [address] Result Comment: Unab le to assay due to interference from icterus. Performed By: #### 2 4323-8, ####[facility] LABORATORYCLIA [id number] [place] [address] [place] Sodium [Moles/Vol] 134 mmol/L Low 136-144 [facility] Comment on above: Order Comment: Speci men Type: BLOOD SPECIMENOrdering Facility: [facility] Address: [address] [place] [address] Performed By: #### 2 4323-8, 19237-3 ####[facility] LABORATORYCLIA [id number] [address] [place] Urea nitrogen [Mass/Vol] 11 mg/dL Normal 05-17 [facility] Comment on above: Order Comment: Speci men Type: BLOOD SPECIMENOrdering Facility: [facility] Address: [address] [place] [address] Performed By: #### 2 4323-8, 52355-6 ####[facility] LABORATORYCLIA [id number] [place] [id number] [place] ECG COMPLETEon 01-15-2025 ECG COMPLETE Normal [facility] ERCPon 01-15-2025 ERCP Normal [facility] HISTORY PHYSICALon HISTORY PHYSICAL Normal [facility] Magnesium SerPl-mCncon 01-15 Magnesium [Mass/Vol] 2.0 mg/dL Normal 1.7-2.3 [facility] Comment on above: Order Comment: Speci men Type: BLOOD SPECIMENOrdering Facility: [facility] Address: [address] [place] [address] Performed By: #### 2 4323-8, 49680-2 ####[facility] LABORATORYCLIA [id number] [place] [address] [place] PT panel Coag (PPP)on 2024 INR Coag (PPP) [Relative time] 1.0 {INR} Normal 0.9-1.3 [facility] Comment on above: Order Comment: Speci men Type: BLOOD SPECIMENOrdering Facility: [facility] Address: [address] [place] [address] Result Comment: Aria min K Antagonist (VKA) Therapeutic Range: INR 2 to 3 (Target INR of 2.5)Note: For patients treated with VKA drugs, such as warfarin, the [place] [employer] 2012 Guideline recommends a therapeutic INR range of 2 to 3 (target INR of 2.5). This recommendation includes high-risk patients with antiphospholipid syndrome with previous arterial or venous thromboembolism, current-generation mechanical or bioprosthetic aortic heart valve replacement.Note: Patients with mechanical aortic valve replacement and additional risk factors for thromboembolic events (atrial fibrillation, previous thromboembolism, LV dysfunction, hypercoagulable conditions) or an older generation mechanical AVR (i.e., ball in-Cage) or any mechanical MVR should have a INR therapeutic range of 2.5 to 3.5 (target INR of 3).Thomastt GH, et al. Chest 2012, 141:7S-47SNishimura RA, et al. [facility] 2017, 70: 252-289 Performed By: #### 3 4528-0 ####[facility] LABORATORYCLIA [id number] [place] [address] [place] PT Coag (PPP) [Time] 11.3 s Normal 9.7-13.0 [facility] Comment on above: Order Comment: Dayron stinson Type: BLOOD SPECIMENOrdering Facility: [facility] Address: [address] [place] [address] Performed By: #### 3 4528-0 ####[facility] LABORATORYCLIA [id number] [address] [place] Pathology biopsy report Jimenez (Tiss)on 01-15-2025 AP DISCLAIMER Normal [facility] Comment on above: Order Comment: Dayron stinson Type: TISSUE SPECIMENOrdering Facility: [facility] Address: [address] [place] [address] Result Comment: Christina Mckeon Test (LDT) Disclaimer:Performance characteristics of immunohistochemical, immunofluorescent, and chromogenic in-situ hybridization tests have been determined by the performing laboratory within [facility]'s [facility] Pathology and Laboratory Medicine Department ([facility], [facility], [facility], [facility], [facility], [facility], or [facility]) in a manner consistent with CLIA requirements. One or more of these tests may not have been cleared or approved by the FDA. [facility] is regulated under CLIA as qualified to perform high-complexity testing. These tests are used for clinical purposes. These should not be regarded as investigational or for research. Positive and negative controls stain appropriately. Performed By: #### 6 6121-5 ####[facility] HOSPITALIA [id number] [address] CASE REPORT Normal [facility] Comment on above: Order Comment: Speci men Type: TISSUE SPECIMENOrdering Facility: [facility] Address: [address] [place] [address] Result Comment: Surg [facility] Pathology Report Case: [id number] Provider: Adrián Sandhu MD Collected: 01/15/2025 12:41 PMOrdering Location: [facility] Received: 01/18/2025 09:31 AMPathologist: Orestes Zarate MDSpecimen: Pancreas, Biopsy, pancreas mass via FNA Performed By: #### 6 6121-5 ####[facility] H[facility]PITALIA [id number] [address] DIAGNOSIS COMMENT The case was reviewe d by Dr. Rachel Gallardo who agrees with the diagnosis. Normal [facility] Comment on above: Order Comment: Speci men Type: TISSUE SPECIMENOrdering Facility: [facility] Address: [address] [place] [address] Performed By: #### 6 6121-5 ####[facility]PITALIA [id number] [address] FINAL DIAGNOSIS Normal [facility] Comment on above: Order Comment: Speci men Type: TISSUE SPECIMENOrdering Facility: [facility] Address: [address] [place] [address] Result Comment: Kush. Nicole hartreas, mass, biopsy:- Adenocarcinoma (see comment). at 1408 EDT Performed By: #### 6 6121-5 ####[facility] LABORATORYIA [id number] [address] FINAL PERFORMING LAB Normal [facility] Comment on above: Order Comment: Speci men Type: TISSUE SPECIMENOrdering Facility: [facility] Address: [address] [place] [address] Result Comment: Diag nostic interpretation performed at: [facility], [address] [place] [address] CLIA# [id number] Director: Keenan Multani MD Performed By: #### 6 6121-5 ####[facility] LABORATORYCLIA [id number] [address] GROSS DESCRIPTION Normal [facility] Comment on above: Order Comment: Speci men Type: TISSUE SPECIMENOrdering Facility: [facility] Address: [address] [place] [address] Result Comment: Dina golden, BiopsyReceived in formalin labeled pancreas massmultiple segments of cylindrical tissue aggregating to 3.0 x 2.0 x 1.0 cm, davalos-red and of a soft consistency. Totally submitted in one cassette.Gross examination performed at [facility], [address] [place], [place] [address]H January 18, 2025 12:19 PM Performed By: #### 6 6121-5 ####[facility] LABORATORYCLIA [id number] [address] [place] XR ERCP READ ONLYon 01-16-20 25 XR ERCP READ ONLY Normal [facility] Bedside Glucoseon 01-14-2025 FINGERSTICK GLU 417 mg/dL High 74-106 [facility] Comment on above: Result Comment: JILLIAN GEMENT OF PATIENT CARE PER NURSING PROTOCOL Performed By: #### L 501.080 ####[facility] [address] [facility] [address] FINGERSTICK GLU 282 mg/dL High 74-106 [facility] Comment on above: Result Comment: JILLIAN GEMENT OF PATIENT CARE PER NURSING PROTOCOL Performed By: #### L 501.080 ####[facility] [address] [place], [address] FINGERSTICK GLU 284 mg/dL High [address] [place] [address] Comment on above: Result Comment: JILLIAN GEMENT OF PATIENT CARE PER NURSING PROTOCOL Performed By: #### L 501.080 ####[facility] [address] [place], [address] FINGERSTICK GLU 241 mg/dL [address] Comment on above: Result Comment: JILLIAN GEMENT OF PATIENT CARE PER NURSING PROTOCOL Performed By: #### L 501.080 #### [facility] Laboratory [address] [place], [address] [facility] deOrdered By: Jose Wu on 01-14-2025 [facility] 417 mg/dL [address] Comment on above: MANAGEMENT OF PATIEN T CARE PER NURSING PROTOCOL Bedside Glucoseon 01-13-2025 FINGERSTICK GLU 314 mg/dL [address] Comment on above: Result Comment: JILLIAN GEMENT OF PATIENT CARE PER NURSING PROTOCOL Performed By: #### L 501.080 #### [facility] [address] [place], [address] FINGERSTICK GLU 356 mg/dL [address] Comment on above: Result Comment: JILLIAN GEMENT OF PATIENT CARE PER NURSING PROTOCOL Performed By: #### L 501.080 #### [facility] [address] [place], [address] FINGERSTICK GLU 302 mg/dL [address] Comment on above: Result Comment: JILLIAN GEMENT OF PATIENT CARE PER NURSING PROTOCOL Performed By: #### L 501.080 #### [facility] [address] [place], [address] FINGERSTICK GLU 278 mg/dL [address] Comment on above: Result Comment: JILLIAN GEMENT OF PATIENT CARE PER NURSING PROTOCOL Performed By: #### L 501.080 #### [facility] [address] [place], [place], [address] 12 Lead EKGon 01-12-2025 12 Lead EKG [facility] Cardi[facility] Services [address] [place] [address] 12 Lead EKG 01/12/25 0442 MR#: [id number] Acct: [id number] Name: TELMA TINEO Rep #: [id number] : 1940 84 From: Zachary Sarabia MD Attending Dr: Dr. Jose Wu DO Status: A DM IN Ordering Dr: Babatunde Worthington MD Date: 01/12/25 Location: MS3 Sex: F H Admitted: 01/10/25 Test Reason : PRE-OP Blood Pressure : */* mmHG Vent. Rate : 78 BPM Atrial Rate : * BPM P-R Int : * ms QRS Dur : 88 ms QT Int : 402 ms P-R-T Axes : * -14 98 degrees QTcB Int : 458 ms Atrial fibrillation Moderate voltage criteria for LVH, may be normal variant ( R in aVL , [place] product ) ST T wave abnormality, consider anterior ischemia Abnormal ECG When compared with ECG of 25-Jun-2024 15:29, QT has lengthened Confirmed by ZACHARY SARABIA MD ([id number]), commercial production editor CARLOS HARRIS ([id number]) on 01/12/2025 8:23:00 AM Referred By: DENNIS Confirmed By: ZACHARY SARABIA MD 01/12/25 0823 Date Zachary Sarabia MD CC: Dr. Babatunde Worthington MD; Dr. Jose Wu DO; Dr. Henok Martinez MD Signed Normal [facility] Bedside Glucoseon 01-12-2025 FINGERSTICK GLU 397 mg/dL High 74-106 [facility] Comment on above: Result Comment: JILLIAN GEMENT OF PATIENT CARE PER NURSING PROTOCOL Performed By: #### L 501.080 #### [facility] [address] [place], [address] FINGERSTICK GLU 214 mg/dL High 74-106 [facility] Comment on above: Result Comment: JILLIAN GEMENT OF PATIENT CARE PER NURSING PROTOCOL Performed By: #### L 501.080 #### [facility] [address] [place], [address] FINGERSTICK GLU 258 mg/dL High 74-106 [facility] Comment on above: Result Comment: JILLIAN GEMENT OF PATIENT CARE PER NURSING PROTOCOL Performed By: #### L 501.080 #### [facility] [address] [place], [place], [address] CA 19-9 Serial Monitoron CA 19-9 355 U/mL High 0-35 [facility] Comment on above: Result Comment: [employer] Electrochemiluminescence Immunoassay (ECLIA) Values obtained with different assay methods or kits cannot be used interchangeably. Results cannot be interpreted as absolute evidence of the presence or absence of malignant disease. Performed at: [facility] [address] [id number] Flow Machine Operator: Barry Hart PhD, Phone: [phone] Performed By: #### L 501.080 #### [facility] [address] [place], [place], [address] ERCP Biliary/Pancreason 12-26 ERCP Biliary/Pancreas [facility] Imaging Services [address] [place], [place] [address] ERCP Biliary/Pancreas MR#: [id number] Acct: [id number] Name: TELMA TINEO Rep #: [id number] : 1940 F 84 From: Raj [place]ley MD PCP: Dr. Henok Martinez MD Status: ADM IN Study: ERCP Biliary/Pancreas Date of Exam: 01/12/25 Exam# [id number] Ordering Dr: Mohit Brown DO PROCEDURE: ERCP BILIARY/PANCREAS 01/12/2025 REASON FOR EXAM: PAIN. ERCP WITH SPY? TECHNIQUE: Fluoroscopic services provided for ERCP. Fluoroscopic time: 110.7 seconds 22.5 mGy 3 images were submitted. COMPARISON: None. FINDINGS: The business travel consultant performed the ERCP. Fluoroscopic imaging provided. RAD/ERCP Biliary/Pancreas IMPRESSION: Fluoroscopic services provided for ERCP. Reading Location: [place] [address] CC: Dr. Henok Martinez MD; Mohit Brown DO Supervisor Billposting: Signed Normal [facility] ERCP Reporton 01-12-2025 ERCP Report [facility] Medical Records Department [address] [place] [address] ERCP Report MR#: [id number] Acct: [id number] Name: TELMA TINEO Rep #: [id number] : 1940 84 From: Mohit Brown DO PCP: Dr. 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 Refer to note in patient chart for documentation of history and physical. Patient has symptoms of acute jaundice. Complications: No immediate complications. Estimated blood loss: None Procedure: Pre-Anesthesia Assessment: - Prior to the procedure, a History and Physical was performed, and patient medications and allergies were reviewed. The patient is competent. The risks and benefits of the procedure and the sedation options and risks were discussed with the patient. All questions were answered and informed consent was obtained. Patient identification and proposed procedure were verified by the physician in the pre-procedure area. Mental Status Examination: alert and oriented. Airway Examination: normal oropharyngeal airway and neck mobility. Respiratory Examination: clear to auscultation. CV Examination: normal. Prophylactic Antibiotics: The patient does not require prophylactic antibiotics. Prior Anticoagulants: The patient has taken no anticoagulant or antiplatelet agents except for NSAID medication. ASA Grade Assessment: II - A patient with mild systemic disease. After reviewing the risks and benefits, the patient was deemed in satisfactory condition to undergo the procedure. The anesthesia plan was to use general anesthesia. Immediately prior to administration of medications, the patient was re-assessed for adequacy to receive sedatives. The heart rate, respiratory rate, oxygen saturations, blood pressure, adequacy of pulmonary ventilation, and response to care were monitored throughout the procedure. The physical status of the patient was re-assessed after the procedure. After obtaining informed consent, the scope was passed under direct vision. Throughout the procedure, the patient's blood pressure, pulse, and oxygen saturations were monitored continuously. The Duodenoscope was introduced through the mouth, and advanced to the duodenum without successful cannulation. 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 The patient tolerated the procedure well. Scope In: 12:21:51 PM Scope Out: 1:30:33 PM Total Procedure Duration Time 1 hour 8 minutes 42 seconds Findings: The cosmetologist film was normal. The bile duct could not be cannulated with the short-nosed traction sphincterotome. No biopsies or other specimens were collected for this exam. Impression: - No specimens collected. Procedure Code(s): --- Professional --- 26329, Esophagogastroduodenoscopy , flexible, transoral; diagnostic, including collection of specimen(s) by brushing or washing, when performed (separate procedure) CPT copyright 2021 [place] [employer]. All rights reserved. The codes documented in this report are preliminary and upon sales representative jewelry review may be revised to meet current compliance requirements. Mohit Brown DO 01/12/2025 1:41:52 PM This report has been signed electronically. Number of Addenda: 0 Note Initiated On: 01/12/2025 11:51 AM 01/12/25 1342 Date Mohit Brown DO Cosigner Signature: Date (if indicated) CC: Dr. Henok Martinez MD; Mohit Brown DO Date Dictated: 01/12/25 1151 Date Transcribed: Supervisor Billposting: RF Signed Normal [facility] Electrocardiogram reportOrde red By: Zachary Sarabia on 01-12-2025 EKG study [facility] Cardiovascular Services [address] [place] [address] 12 Lead EKG 01/12/25 0442 MR#: [id number] Acct: [id number] Name: TELMA TINEO Rep #:[id number] : 1940 84 From: Zachary Sarabia MD Attending Dr: Dr. Jose Wu DO Status: ADM IN Ordering Dr: Babatunde Worthington MD Date: 01/12/25 Location: [facility] Sex: F H Admitted: 01/10/25 Test Reason : PRE-OP Blood Pressure : */* mmHG Vent. Rate : 78 BPM Atrial Rate : * BPM P-R Int : * ms QRS Dur : 88 ms QT Int : 402 ms P-R-T Axes : * -14 98 degrees QTcB Int : 458 ms Atrial fibrillation Moderate voltage criteria for LVH, may be normal variant ( R in aVL , [place] product ) ST & T wave abnormality, consider anterior ischemia Abnormal ECG When compared with ECG of 25-Jun-2024 15:29, QT has lengthened Confirmed by CORNELL HELMS, ZACHARY ([id number]), commercial production editor CARLOS HARRIS ([id number]) on 01/12/2025 8:23:00 AM Referred By: DENNIS Confirmed By: ZACHARY SARABIA MD 01/12/25 0823 Date _ Zachary Sarabia MD CC: Dr. Babatunde Worthington MD; Dr. Jose Wu DO; Dr. Henok Martinez MD ~ Signed [facility] Work Phone: [email or web address] 01-12-2025 MR/POSTOP.[facility] Medical Records Department [address] [place] [address] Anesthesia Postop Eval I 01/12/25 1348 MR#: [id number] Acct: [id number] Name: TELMA TINEO Rep #: [id number] : 1940 84 From: Jr Kamara CRNA PCP: Dr. Henok Martinez MD Status:ADM IN Y Race: H Location: [place] [address]-1 Anesthesia: Postop Eval I Current Vital Signs Temperature: 97.7 F Pulse Rate: 81 Blood Pressure: 143/77 Respiratory Rate: 16 Pulse Ox: 96 Assessment Airway patent: Yes Spontaneous unlabored respirations: Yes nausea: No Vomiting: No Anesthesia Complication: No Fluid Hydration Crystalloid volume administer (ml): 1,000 Total IV fluid infused: 1,000 Progress Note Anesthesia document: Postop Eval 1 completed: Yes 01/12/25 1348 Date Jr Kamara ELECTRIC ORGAN INSPECTOR AND REPAIRER Cosigner Signature: Date CC: Signed Normal [facility] MR/[id number] 01-12-2025 /[facility] Medical Records Department [address] [place] [id number] Anesthesia Postop Eval II 01/12/25 1408 MR#: [id number] Acct: [id number] Name: TELMA TINEO Rep #: [id number] : 1940 84 From: José Escobar MD PCP: Dr. Henok Martinez MD Status:ADM IN Y Race: H Location: [facility] [id number] Anesthesia Postop Eval I Sum Postop Eval Completion status Anesthesia document: Postop Eval 1 completed: Yes Anesthesia Postop Eval I Summary Anesthesia Postop Eval I Summary: Anesthesia Postop Eval I: Assessment Summary Airway patent Yes 01/12/25 13:48 ELECTRIC ORGAN INSPECTOR AND REPAIRER.TNES Spontaneous unlabored Yes 01/12/25 13:48 ELECTRIC ORGAN INSPECTOR AND REPAIRER.TNES respirations Mental status nausea No 01/12/25 13:48 ELECTRIC ORGAN INSPECTOR AND REPAIRER.TNES Vomiting No 01/12/25 13:48 ELECTRIC ORGAN INSPECTOR AND REPAIRER.TNES Anesthesia Postop Eval I: Fluid Summary Crystalloid volume administer 1,000 01/12/25 13:48 ELECTRIC ORGAN INSPECTOR AND REPAIRER.TNES (ml) Colloids volume administered ( ml) Blood Product volume administered (ml) Total IV fluid infused 1,000 01/12/25 13:48 ELECTRIC ORGAN INSPECTOR AND REPAIRER.TNES Anesthesia Postop Eval I: Summary Notes Anesthesia Complication No 01/12/25 13:48 ELECTRIC ORGAN INSPECTOR AND REPAIRER.TNES Anesthesia Complication Comment: Post-operative progress note Anesthesia: Postop Eval II Evaluation Mental status: Awake Pain Level: 0 nausea: No Vomiting: No Complications Anesthesia Complication: No 01/12/25 1408 Date José Macdonaldigner Signature: Date CC: Signed Normal [facility] Absolute neutrophil countOrd ered By: Keenan Celeste on 01-11-2025 Neutrophils (Bld) [#/Vol] 3.1 10*3/uL 2.0-7.7 [facility] Anion gap in Serum or Plasma Ordered By: Keenan Celeste on 01-11-2025 Anion gap [Moles/Vol] 13 mmol/L 5- [facility] BUN/creatinine ratioOrdered By: Keenan Celeste on 01-11-2025 Urea nitrogen/Creatinine [Mass ratio] 10.8 mg/mg 10- [facility] Comment on above: Previous reported re sult: 10.0 RATIOEdited by: AUTOINNaveen on 01/11/25:1445 AMENDED REPORT 01/11/25 144 BUN/CRE previously reported as: 10.0 RATIO Basophil percentageOrdered B y: Keenan Celeste on 01-11-2025 Basophils/100 WBC (Bld) 0.6 % 0-1 [facility] Bedside Glucoseon 01-11-2025 FINGERSTICK GLU 411 mg/dL High 74-106 [facility] Comment on above: Result Comment: JILLIAN GEMENT OF PATIENT CARE PER NURSING PROTOCOL Performed By: #### L 501.080 #### [facility] [address] [place], [address] FINGERSTICK GLU 414 mg/dL High 74-106 [facility] Comment on above: Result Comment: JILLIAN GEMENT OF PATIENT CARE PER NURSING PROTOCOL Performed By: #### L 501.080 #### [facility] [address] [place], [address] FINGERSTICK GLU 269 mg/dL High 74-106 [facility] Comment on above: Result Comment: JILLIAN GEMENT OF PATIENT CARE PER NURSING PROTOCOL Performed By: #### L 501.080 #### [facility] [address] [place], [address] Bilirubin, totalOrdered By: Keenan Celeste on 01-11-2025 Bilirubin [Mass/Vol] 10.20 mg/dL High 0.00-1.30 [facility] Comment on above: Previous reported re sult: 10.00 mg/dLEdited by: BRIDGER on 01/11/25:1445 AMENDED REPORT 01/11/25 1445 T BILI previously reported as: 10.00 H mg/dL CBC W/Diff, Automatedon 12-26 Absolute Lymph 1.14 X10 3/uL Normal 0.83-4.51 [facility] Comment on above: Performed By: #### L 501.080 #### [facility] [address] [place], [address] Absolute Neut 3.1 X10 3/uL Normal 2.0-7.7 [facility] Comment on above: Performed By: #### L 501.080 #### [facility] [address] [place], [address] Basophils/100 WBC (Bld) 0.6 % Normal 0-1 [facility] Comment on above: Performed By: #### L 501.080 #### [facility] [address] [place], [address] Eosinophils/100 WBC (Bld) 2.4 % Normal 0-5 [facility] Comment on above: Performed By: #### L 501.080 #### [facility] [address] [place], [address] Erythrocyte distribution width (RBC) [Ratio] 15.1 % High 11.6-14.6 [facility] Comment on above: Performed By: #### L 501.080 #### [facility] [address] [place], [address] Hematocrit (Bld) [Volume fraction] 34.2 % Low 37-47 [facility] Comment on above: Performed By: #### L 501.080 #### [facility] [address] [place], [address] Hemoglobin (Bld) [Mass/Vol] 11.7 g/dL Low 12.0-15.0 [facility] Comment on above: Performed By: #### L 501.080 #### [facility] [address] [place], [address] IG% 0.400 Normal 0.0-0.9 [facility] Comment on above: Result Comment: IG% - Immature Granulocytes (promyelocytes, myelocytes and metamyelocytes) > 1% indicates that a LEFT SHIFT is Present. Performed By: #### L 501.080 #### [facility] [address] [place], [address] Lymphocytes/100 WBC (Bld) 22.9 % Normal 19-41 [facility] Comment on above: Performed By: #### L 501.080 #### [facility] [address] [place], [address] MCH (RBC) [Entitic mass] 29.7 pg Normal 27.0-32.0 [facility] Comment on above: Performed By: #### L 501.080 #### [facility] [address] [place], [address] MCHC (RBC) [Mass/Vol] 34.2 g/dL Normal 32-36 [facility] Comment on above: Performed By: #### L 501.080 #### [facility] [address] [place], [address] MCV (RBC) [Entitic vol] 86.8 fL Normal 81-99 [facility] Comment on above: Performed By: #### L 501.080 #### [facility] [address] [place], [address] Monocytes/100 WBC (Bld) 11.6 % High 0-10 [facility] Comment on above: Performed By: #### L 501.080 #### [facility] [address] [place], [address] Neutrophils/100 WBC (Bld) 62.1 % Normal 47-70 [facility] Comment on above: Performed By: #### L 501.080 #### [facility] [address] [place], [address] Nucleated RBC (Bld) [#/Vol] 0 10*3/uL Normal 0-5 [facility] Comment on above: Performed By: #### L 501.080 #### [facility] [address] [place], [address] Platelet mean volume (Bld) [Entitic vol] 13.7 fL High 6.2-12.0 [facility] Comment on above: Performed By: #### L 501.080 #### [facility] [address] [place], [address] Platelets (Bld) [#/Vol] 169 10*3/uL Normal 150-450 [facility] Comment on above: Performed By: #### L 501.080 #### [facility] [address] [place], [address] RBC (Bld) [#/Vol] 3.94 10*6/uL Low 4.2-5.4 [facility] Comment on above: Performed By: #### L 501.080 #### [facility] [address] [place], [address] RDW SD 47.8 fl High 35.1-43.9 [facility] Comment on above: Performed By: #### L 501.080 #### [facility] [address] [place], [address] WBC (Bld) [#/Vol] 5.0 10*3/uL Normal 4.4-11.0 [facility] Comment on above: Performed By: #### L 501.080 #### [facility] [address] [place], [address] Carbon dioxide, total [Moles /volume] in Central venous bloodOrdered By: Keenan Celeste on 01-11-2025 CO2 [Moles/Vol] 20.0 mmol/L Low 21.0-32.0 [facility] Comment on above: Previous reported re sult: 19.6 mmol/LEdited by: AUTOINS on 01/11/25:1445 AMENDED REPORT 01/11/25 1445 CO2 previously reported as: 19.6 L mmol/L Chloride assayOrdered By: Jose Celeste on 01-11-2025 Chloride [Moles/Vol] 103 mmol/L 98-108 [facility] Comment on above: Previous reported re sult: 104 mmol/LEdited by: AUTOINS on 01/11/25:1445 AMENDED REPORT 01/11/25 1445 CL previously reported as: 104 mmol/L Comprehensive Metabolic Prof ilon 01-11-2025 Albumin [Mass/Vol] 3.9 g/dL Normal 3.4-4.8 [facility] Comment on above: Result Comment: AMENDED REPORT 01/11/251444 ALB previously reported as: 3.7 g/dL Performed By: #### L 501.5425, L500.2500, L100.0100 #### [facility] [address] [place], [address] Albumin/Globulin [Mass ratio] 1.8 {ratio} Normal 0.9-2.4 [facility] Comment on above: Result Comment: AMENDED REPORT 01/11/251444 A/G previously reported as: 1.5 RATIO Performed By: #### L 501.5425, L500.2500, L100.0100 #### [facility] [address] [place], [address] ALK PHOS 366 U/L High 35-104 [facility] Comment on above: Result Comment: AMENDED REPORT 01/11/251444 ALK P previously reported as: 349 H U/L Performed By: #### L 501.5425, L500.2500, L100.0100 #### [facility] [address] [place], [address] ALT [Catalytic activity/Vol] 343 U/L High <=34 [facility] Comment on above: Result Comment: AMENDED REPORT 01/11/251444 ALT previously reported as: 333 H U/L Performed By: #### L 501.5425, L500.2500, L100.0100 #### [facility] [address] [place], [address] AST [Catalytic activity/Vol] 247 U/L High <=31 [facility] Comment on above: Result Comment: AMENDED REPORT 01/11/251444 AST previously reported as: 240 H U/L Performed By: #### L 501.5425, L500.2500, L100.0100 #### [facility] [address] [place], [address] Bilirubin [Mass/Vol] 10.20 mg/dL High 0.00-1.30 [facility] Comment on above: Result Comment: AMENDED REPORT 01/11/251444 T BILI previously reported as: 10.00 H mg/dL Performed By: #### L 501.5425, L500.2500, L100.0100 #### [facility] [address] [place], [address] BUN/CRE 10.8 RATIO Normal 10-20 [facility] Comment on above: Result Comment: AMENDED REPORT 01/11/251444 BUN/CRE previously reported as: 10.0 RATIO Performed By: #### L 501.5425, L500.2500, L100.0100 #### [facility] [address] [place], [address] Calcium [Mass/Vol] 9.5 mg/dL Normal 7.6-11.0 [facility] Comment on above: Result Comment: AMENDED REPORT 01/11/251444 CA previously reported as: 9.7 mg/dL Performed By: #### L 501.5425, L500.2500, L100.0100 #### [facility] [address] [place], [address] Chloride [Moles/Vol] 103 mmol/L Normal 98-108 [facility] Comment on above: Result Comment: AMENDED REPORT 01/11/251444 CL previously reported as: 104 mmol/L Performed By: #### L 501.5425, L500.2500, L100.0100 #### [facility] [address] [place], [address] CO2 [Moles/Vol] 20.0 mmol/L Low 21.0-32.0 [facility] Comment on above: Result Comment: AMENDED REPORT 01/11/251444 CO2 previously reported as: 19.6 L mmol/L Performed By: #### L 501.5425, L500.2500, L100.0100 #### [facility] [address] [place], [address] Creatinine [Mass/Vol] 0.74 mg/dL Normal 0.70-1.20 [facility] Comment on above: Result Comment: Icte crisitna present, Results may be affected. AMENDED REPORT 01/11/251444 CREAT,SERUM previously reported as: 0.73 mg/dL Icterus present, Results may be affected. Performed By: #### L 501.5425, L500.2500, L100.0100 #### [facility] [address] [place], [address] ECRCL 44.71 ml/min Low 50-250 [facility] Comment on above: Performed By: #### L 501.5425, L500.2500, L100.0100 #### [facility] [address] [place], [address] GAP 13 Normal 5-15 [facility] Comment on above: Performed By: #### L 501.5425, L500.2500, L100.0100 #### [facility] [address] [place], [address] Globulin (S) [Mass/Vol] 2.1 g/dL Low 2.2-4.2 [facility] Comment on above: Result Comment: AMENDED REPORT 01/11/251444 GLOB previously reported as: 2.5 g/dL Performed By: #### L 501.5425, L500.2500, L100.0100 #### [facility] [address] [place], [address] Glucose [Mass/Vol] 276 mg/dL High 70-99 [facility] Comment on above: Performed By: #### L 501.5425, L500.2500, L100.0100 #### [facility] [address] [place], [address] Potassium [Moles/Vol] 3.8 mmol/L Normal 3.3-5.1 [facility] Comment on above: Result Comment: AMENDED REPORT 01/11/251444 K previously reported as: 3.6 mmol/L Performed By: #### L 501.5425, L500.2500, L100.0100 #### [facility] [address] [place], [address] Sodium [Moles/Vol] 136 mmol/L Normal 133-145 [facility] Comment on above: Result Comment: AMENDED REPORT 01/11/251444 NA previously reported as: 135 mmol/L Performed By: #### L 501.5425, L500.2500, L100.0100 #### [facility] [address] [place], [address] T PROT 5.9 g/dL Normal 5.9-8.4 [facility] Comment on above: Result Comment: AMENDED REPORT 01/11/251444 T PROT previously reported as: 6.2 g/dL Performed By: #### L 501.5425, L500.2500, L100.0100 #### [facility] [address] [place], [address] Urea nitrogen [Mass/Vol] 8 mg/dL Normal 4-19 [facility] Comment on above: Result Comment: AMENDED REPORT 01/11/251444 BUN previously reported as: 7 mg/dL Performed By: #### L 501.5425, L500.2500, L100.0100 #### [facility] [address] [place], [address] Eosinophil percentageOrdered By: Keenan Celeste on 01-11-2025 Eosinophils/100 WBC (Bld) 2.4 % 0-5 [facility] Erythrocyte distribution wid th ratioOrdered By: Keenan Celeste on 01-11-2025 Erythrocyte distribution width (RBC) [Ratio] 15.1 % High 11.6-14.6 [facility] Erythrocyte distribution wid th standard deviationOrdered By: Keenan Celeste on 01-11-2025 Erythrocyte distribution width (RBC) [Entitic vol] 47.8 fL High 35.1-43.9 [facility] Estimation of creatinine pallavi aranceOrdered By: Keenan Celeste on 01-11-2025 Estimated Creatinine Clearance Calc 44.71 ml/min Low 50-250 [facility] GFR/1.73 sq M.predicted karlee g non-blacks MDRD (S/P/Bld) [Vol rate/Area]Ordered By: Keenan Celeste on 01-11-2025 Estimated GFR (MDRD) Non-Af Amer 81 >60 [facility] Comment on above: mL/min/1.73m2 CKD-EP I Creatinine Equation (2020) Hematocrit Auto (Bld) [Volum e fraction]Ordered By: Keenan Celeste on 01-11-2025 Hematocrit (Bld) [Volume fraction] 34.2 % Low 37-47 [facility] Hemoglobin measurementOrdere d By: Keenan Celeste on 01-11-2025 Hemoglobin (Bld) [Mass/Vol] 11.7 g/dL Low 12.0-15.0 [facility] Immature granulocytes/100 WB C Auto (Bld)Ordered By: Keenan Celeste on 01-11-2025 Immature granulocytes/100 WBC (Bld) 0.400 % 0.0-0.9 [facility] Comment on above: IG% - Immature Granu locytes (promyelocytes, myelocytes and metamyelocytes) > 1% indicates that a LEFT SHIFT is Present. Laboratory - Chemistry and C hemistry - challengeOrdered By: Keenan Celeste on 01-11-2025 AST [Catalytic activity/Vol] 247 U/L High <32 [facility] Comment on above: Previous reported re sult: 240 U/LEdited by: AUTOINS on 01/11/25:1445 AMENDED REPORT 01/11/25 1445 AST previously reported as: 240 H U/L Lymphocytes Auto (Unsp spec) [#/Vol]Ordered By: Keenan Celeste on 01-11-2025 Lymphocytes (Bld) [#/Vol] 1.14 10*3/uL 0.83-4.51 [facility] Lymphocytes/100 WBC Auto (Un sp spec)Ordered By: Keenan Celeste on 01-11-2025 Lymphocytes/100 WBC (Bld) 22.9 % 19-41 [facility] MCV (mean corpuscular volume ) determinationOrdered By: Keenan Celeste on 01-11-2025 MCV (RBC) [Entitic vol] 86.8 fL 81-99 [facility] Mean corpuscular hemoglobin (MCH) determinationOrdered By: Keenan Celeste on 01-11-2025 MCH (RBC) [Entitic mass] 29.7 pg 27.0-32.0 [facility] Mean corpuscular hemoglobin concentration (MCHC) determinationOrdered By: Keenan Celeste on 01-11-2025 MCHC (RBC) [Mass/Vol] 34.2 g/dL 32-36 [facility] Mean platelet volume determi nationOrdered By: Keenan Celeste on 01-11-2025 Platelet mean volume (Bld) [Entitic vol] 13.7 fL High 6.2-12.0 [facility] Monocyte percentageOrdered B y: Keenan Celeste on 01-11-2025 Monocytes/100 WBC (Bld) 11.6 % High 0-10 [facility] Neutrophil percentageOrdered By: Keenan Celeste on 01-11-2025 Neutrophils/100 WBC (Bld) 62.1 % 47-70 [facility] Nucleated red blood cell per centageOrdered By: Keenan Celeste on 01-11-2025 Nucleated RBC/100 WBC (Bld) [Ratio] 0 % 0-5 [facility] Platelet countOrdered By: Jose Celeste on 01-11-2025 Platelets (Bld) [#/Vol] 169 10*3/uL 150-450 [facility] Potassium (Unsp spec) [Mass/ Vol]Ordered By: Keenan Celeste on 01-11-2025 Potassium [Moles/Vol] 3.8 mmol/L 3.3-5.1 [facility] Comment on above: Previous reported re sult: 3.6 mmol/LEdited by: BRIDGER on 01/11/25:1445 AMENDED REPORT 01/11/251444 K previously reported as: 3.6 mmol/L RBC Auto (Bld) [#/Vol]Ordere d By: Keenan Celeste on 01-11-2025 RBC (Bld) [#/Vol] 3.94 10*6/uL Low 4.2-5.4 [facility] Serum creatinine measurement (mass/volume)Ordered By: Keenan Celeste on 01-11-2025 Creatinine [Mass/Vol] 0.74 mg/dL 0.70-1.20 [facility] Comment on above: Icterus present, Res ults may be affected.Previous reported result: 0.73 mg/dLEdited by: BRIDGER on 01/11/25:1445 AMENDED REPORT 01/11/251444 CREAT,SERUM previously reported as: 0.73 mg/dL Icterus present, Results may be affected. Serum globulin measurementOr dered By: Keenan Celeste on 01-11-2025 Globulin (S) [Mass/Vol] 2.1 g/dL Low 2.2-4.2 [facility] Comment on above: Previous reported re sult: 2.5 g/dLEdited by: BRIDGER on 01/11/25:1445 AMENDED REPORT 01/11/251444 GLOB previously reported as: 2.5 g/dL Serum glucose measurement (m ass/volume)Ordered By: Keenan Celeste on 01-11-2025 Glucose [Mass/Vol] 276 mg/dL High 70-99 [facility] Serum or plasma alanine mendoza otransferase (ALT) measurementOrdered By: Keenan Celeset on 01-11-2025 ALT [Catalytic activity/Vol] 343 U/L High <35 [facility] Comment on above: Previous reported re sult: 333 U/LEdited by: BRIDGER on 01/11/25:1445 AMENDED REPORT 01/11/25 1445 ALT previously reported as: 333 H U/L Serum or plasma albumin froylan urement (mass/volume)Ordered By: Keenan Celeste on 01-11-2025 Albumin [Mass/Vol] 3.9 g/dL 3.4-4.8 [facility] Comment on above: Previous reported re sult: 3.7 g/dLEdited by: BRIDGER on 01/11/25:1445 AMENDED REPORT 01/11/25 144 ALB previously reported as: 3.7 g/dL Serum or plasma albumin/glob ulin mass ratioOrdered By: Keenan Celeste on 01-11-2025 Albumin/Globulin [Mass ratio] 1.8 {ratio} 0.9-2.4 [facility] Comment on above: Previous reported re sult: 1.5 RATIOEdited by: BRIDGER on 01/11/25:1445 AMENDED REPORT 01/11/251444 A/G previously reported as: 1.5 RATIO Serum or plasma alkaline charli sphatase measurementOrdered By: Keenan Celeste on 01-11-2025 ALP [Catalytic activity/Vol] 366 U/L High 35-104 [facility] Comment on above: Previous reported re sult: 349 U/LEdited by: BRIDGER on 01/11/25:1445 AMENDED REPORT 01/11/251444 ALK P previously reported as: 349 H U/L Serum or plasma calcium froylan urement (mass/volume)Ordered By: Keenan Celeste on 01-11-2025 Calcium [Mass/Vol] 9.5 mg/dL 7.6-11.0 [facility] Comment on above: Previous reported re sult: 9.7 mg/dLEdited by: BRIDGER on 01/11/25:1445 AMENDED REPORT 01/11/25 144 CA previously reported as: 9.7 mg/dL Serum or plasma urea nitroge n measurement (mass/volume)Ordered By: Keenan Celeste on 01-11-2025 Urea nitrogen [Mass/Vol] 8 mg/dL 4-19 [facility] Comment on above: Previous reported re sult: 7 mg/dLEdited by: BRIDGER on 01/11/25:1445 AMENDED REPORT 01/11/25 1445 BUN previously reported as: 7 mg/dL Sodium levelOrdered By: Keenan Celeste on 01-11-2025 Sodium [Moles/Vol] 136 mmol/L 133-145 [facility] Comment on above: Previous reported re sult: 135 mmol/LEdited by: BRIDGER on 01/11/25:1445 AMENDED REPORT 01/11/251444 NA previously reported as: 135 mmol/L Total proteinOrdered By: Daniela Celeste on 01-11-2025 Protein [Mass/Vol] 5.9 g/dL 5.9-8.4 [facility] Comment on above: Previous reported re sult: 6.2 g/dLEdited by: BRIDGER on 01/11/25:1445 AMENDED REPORT 01/11/251444 T PROT previously reported as: 6.2 g/dL White blood cell (WBC) count Ordered By: Keenan Celeste on 01-11-2025 WBC (Bld) [#/Vol] 5.0 10*3/uL 4.4-11.0 [facility] Bedside Glucoseon 01-10-2025 FINGERSTICK GLU 388 mg/dL High 74-106 [facility] Comment on above: Result Comment: JILLIAN GEMENT OF PATIENT CARE PER NURSING PROTOCOL Performed By: #### L 501.080 #### [facility] Laboratory [address] [place], [address] FINGERSTICK GLU 369 mg/dL High 74-106 [facility] Comment on above: Result Comment: JILLIAN GEMENT OF PATIENT CARE PER NURSING PROTOCOL Performed By: #### L 501.080 #### [facility] Laboratory [address] [place], [address] FINGERSTICK GLU 311 mg/dL High [address] [place] [address] Comment on above: Result Comment: JILLIAN GEMENT OF PATIENT CARE PER NURSING PROTOCOL Performed By: #### L 501.080 #### [facility] Laboratory [address] [place], [address] CBC W/Diff, Automatedon 12-26 Absolute Lymph 1.24 X10 3/uL Normal 0.83-4.51 [facility] Comment on above: Performed By: #### L 501.080 #### [facility] Laboratory [address] [place], [address] Absolute Neut 4.3 X10 3/uL Normal 2.0-7.7 [facility] Comment on above: Performed By: #### L 501.080 #### [facility] Laboratory [address] [place], [address] Basophils/100 WBC (Bld) 0.5 % Normal 0-1 [facility] Comment on above: Performed By: #### L 501.080 #### [facility] Laboratory [address] [place], [address] Eosinophils/100 WBC (Bld) 1.1 % Normal 0-5 [facility] Comment on above: Performed By: #### L 501.080 #### [facility] Laboratory [address] [place], [address] Erythrocyte distribution width (RBC) [Ratio] 14.7 % High 11.6-14.6 [facility] Comment on above: Performed By: #### L 501.080 #### [facility] Laboratory [address] [place], [address] Hematocrit (Bld) [Volume fraction] 35.0 % Low 37-47 [facility] Comment on above: Performed By: #### L 501.080 #### [facility] Laboratory [address] [place], [address] Hemoglobin (Bld) [Mass/Vol] 12.0 g/dL Normal 12.0-15.0 [facility] Comment on above: Performed By: #### L 501.080 #### [facility] Laboratory [address] [place], [address] IG% 0.200 Normal 0.0-0.9 [facility] Comment on above: Result Comment: IG% - Immature Granulocytes (promyelocytes, myelocytes and metamyelocytes) > 1% indicates that a LEFT SHIFT is Present. Performed By: #### L 501.080 #### [facility] Laboratory [address] [place], [address] Lymphocytes/100 WBC (Bld) 19.4 % Normal 19-41 [facility] Comment on above: Performed By: #### L 501.080 #### [facility] Laboratory [address] [place], [address] MCH (RBC) [Entitic mass] 30.0 pg Normal 27.0-32.0 [facility] Comment on above: Performed By: #### L 501.080 #### [facility] Laboratory [address] [place], [address] MCHC (RBC) [Mass/Vol] 34.3 g/dL Normal 32-36 [facility] Comment on above: Performed By: #### L 501.080 #### [facility] Laboratory [address] [place], [address] MCV (RBC) [Entitic vol] 87.5 fL Normal 81-99 [facility] Comment on above: Performed By: #### L 501.080 #### [facility] Laboratory [address] [place], [address] Monocytes/100 WBC (Bld) 12.1 % High 0-10 [facility] Comment on above: Performed By: #### L 501.080 #### [facility] Laboratory [address] [place], [address] Neutrophils/100 WBC (Bld) 66.7 % Normal 47-70 [facility] Comment on above: Performed By: #### L 501.080 #### [facility] Laboratory [address] [place], [address] Nucleated RBC (Bld) [#/Vol] 0 10*3/uL Normal 0-5 [facility] Comment on above: Performed By: #### L 501.080 #### [facility] Laboratory [address] [place], [address] Platelet mean volume (Bld) [Entitic vol] 13.5 fL High 6.2-12.0 [facility] Comment on above: Performed By: #### L 501.080 #### [facility] Laboratory [address] [place], [address] Platelets (Bld) [#/Vol] 167 10*3/uL Normal 150-450 [facility] Comment on above: Performed By: #### L 501.080 #### [facility] Laboratory [address] [place], [address] RBC (Bld) [#/Vol] 4.00 10*6/uL Low 4.2-5.4 [facility] Comment on above: Performed By: #### L 501.080 #### [facility] Laboratory [address] [place], [address] RDW SD 47.3 fl High 35.1-43.9 [facility] Comment on above: Performed By: #### L 501.080 #### [facility] Laboratory [address] [place], [address] WBC (Bld) [#/Vol] 6.4 10*3/uL Normal 4.4-11.0 [facility] Comment on above: Performed By: #### L 501.080 #### [facility] Laboratory [address] [place], [address] Calculated very low density lipoprotein (VLDL) cholesterol measurementOrdered By: Oniel Hernandez on 01-10-2025 VLDL Cholesterol 26 mg/dL 5-40 [facility] Comprehensive Metabolic Prof ilon 01-10-2025 Albumin [Mass/Vol] 3.8 g/dL Normal 3.4-4.8 [facility] Comment on above: Performed By: #### L 501.080 #### [facility] Laboratory [address] [place], [address] Albumin/Globulin [Mass ratio] 1.4 {ratio} Normal 0.9-2.4 [facility] Comment on above: Performed By: #### L 501.080 #### [facility] Laboratory [address] [place], [address] ALK PHOS 374 U/L High 35-104 [facility] Comment on above: Performed By: #### L 501.080 #### [facility] Laboratory [address] [place], [address] ALT [Catalytic activity/Vol] 367 U/L High <=34 [facility] Comment on above: Performed By: #### L 501.080 #### [facility] Laboratory [address] [place], [address] AST [Catalytic activity/Vol] 286 U/L High <=31 [facility] Comment on above: Performed By: #### L 501.080 #### [facility] Laboratory [address] [place], [address] Bilirubin [Mass/Vol] 8.88 mg/dL High 0.00-1.30 [facility] Comment on above: Performed By: #### L 501.080 #### [facility] Laboratory [address] [place], [address] BUN/CRE 13.6 RATIO Normal 10-20 [facility] Comment on above: Performed By: #### L 501.080 #### [facility] Laboratory [address] [place], [address] Calcium [Mass/Vol] 9.4 mg/dL Normal 7.6-11.0 [facility] Comment on above: Performed By: #### L 501.080 #### [facility] Laboratory [address] [place], [address] Chloride [Moles/Vol] 101 mmol/L Normal 98-108 [facility] Comment on above: Performed By: #### L 501.080 #### [facility] Laboratory [address] [place], [address] CO2 [Moles/Vol] 17.3 mmol/L Low 21.0-32.0 [facility] Comment on above: Performed By: #### L 501.080 #### [facility] Laboratory [address] [place], [address] Creatinine [Mass/Vol] 0.65 mg/dL Low 0.70-1.20 [facility] Comment on above: Result Comment: Icte cristina present, Results may be affected. Performed By: #### L 501.080 #### [facility] Laboratory [address] [place], [address] ECRCL 44.61 ml/min Low 50-250 [facility] Comment on above: Performed By: #### L 501.080 #### [facility] Laboratory [address] [place], [address] GAP 16 High 5-15 [facility] Comment on above: Performed By: #### L 501.080 #### [facility] Laboratory [address] [place], [address] GFR/1.73 sq M.predicted among non-blacks MDRD (S/P/Bld) [Vol rate/Area] 87 mL/min/{1.73_m2} Normal >60 [facility] Comment on above: Result Comment: mL/m in/1.73m2 CKD-EPI Creatinine Equation (2020) Performed By: #### L 501.080 #### [facility] Laboratory [address] [place], [address] Globulin (S) [Mass/Vol] 2.7 g/dL Normal 2.2-4.2 [facility] Comment on above: Performed By: #### L 501.080 #### [facility] Laboratory [address] [place], [address] Glucose [Mass/Vol] 371 mg/dL High 70-99 [facility] Comment on above: Performed By: #### L 501.080 #### [facility] Laboratory [address] [place], [address] Potassium [Moles/Vol] 3.4 mmol/L Normal 3.3-5.1 [facility] Comment on above: Performed By: #### L 501.080 #### [facility] Laboratory [address] [place], [address] Sodium [Moles/Vol] 134 mmol/L Normal 133-145 [facility] Comment on above: Performed By: #### L 501.080 #### [facility] Laboratory [address] [place], [address] T PROT 6.6 g/dL Normal 5.9-8.4 [facility] Comment on above: Performed By: #### L 501.080 #### [facility] Laboratory [address] [place], [address] Urea nitrogen [Mass/Vol] 9 mg/dL Normal 4-19 [facility] Comment on above: Performed By: #### L 501.080 #### [facility] Laboratory [address] [place], [address] H AND P Exam - Hospitaliston 01-10-2025 H&P Exam - Hospitalist [facility] Medical Records Department [address] [place] [address] H P Exam - Hospitalist 01/10/25 0039 MR#: [id number] Acct: [id number] Name: TELMA TINEO Rep #: [id number] : 1940 84 From: Oniel Golden DO PCP: Dr. Henok Martinez MD Status:ADM IN Location: MS3 [id number] [facility] - General General Date of Admission: 01/10/25 Date of Service: 01/10/25 Chief Complaint: Jaundice. HPI Narrative TELMA TINEO, is a 84 F with a past medical history of essential hypertension; on losartan, metoprolol and amlodipine, hyperlipidemia; on atorvastatin, overweight; with BMI of 29.4 this admission, remote history of tobacco abuse (quit 50+ years ago), DM-2; on metformin, chronic atrial fibrillation; on apixaban, history of TIA/CVA x 2, mild cognitive impairment, history of Lundberg's palsy, history of Right atrial mass, history of asthma, history of appendectomy, history of cancer, history of anoplasty, history of bladder surgery, history of hemorrhoidectomy, history of hysterectomy, history of blood transfusion, GERD; on pantoprazole and OA; with chronic neck pain who presents to [facility] ER complaining of jaundice. Ms. Tineo reports her symptoms began approximately 1 week prior to admission when she began to turn yellow, her urine turned orange and her stools turned white. She admits to associated nausea and generalized weakness and made it hard for her to complete her daily tasks. She denies vomiting, history of recent alcohol use, previous alcohol abuse or similar previous episodes. Her grandson informed the ER physician that she had stopped taking a few of her medications a few days ago and effort to try to improve her symptoms but no improvement was noted. Unfortunately, her jaundice has continued to worsen and she decided to come in for further evaluation and treatment. She also denies related fever, chills, chest pain, palpitations, heart racing, shortness of breath or headache. In the ER she was noted to have CT evidence of dilated hepatic and pancreatic ducts with an area of hypoattenuation in the head of the pancreas concerning for Pancreatic Carcinoma with additional evidence of mild hepatocellular disease with a markedly distended/hydropic gallbladder with corresponding laboratory evidence of Severe Hyperbilirubinemia; with total bilirubin of 9.78 mg/dL and direct bilirubin of 7.64 mg/dL in addition to Transaminitis; with AST of 308 units/L, ALT of 390 units/L and alkaline phosphatase of 416 units/L plus elevated lipase of 224 units/L suggestive of possible early pancreatitis with Hyperglycemia of 418 mg/dL all present on admission. She was then arranged for transfer to [facility] with bed not available at this time so the ER physician is contacted the hospitalist service to admit this patient until such time she can be safely transferred as per the policy of this hospital. She was then admitted to the general medical floor for ongoing care for stay that is expected to extend beyond 2 midnights. [facility] Medical History (Updated 01/10/25 @ 02:[address] Oniel Golden DO) Neck pain, bilateral History of TIA (transient ischemic attack) Stroke/cerebrovascular accident Essential hypertension Complaint of melena Transient ischemic attack (03/2021) History of Lundberg's palsy GERD (gastroesophageal reflux disease) History of cancer History of blood transfusion Right atrial mass Former smoker Asthma Diabetes mellitus, type 2 Home Medications ???Medication ???Instructions ???Recorded ???Last Taken ???Type multivitamin 1 tab PO DAILY 06/19/21 Unknown Hi story pantoprazole 40 mg tablet,delayed 40 mg PO DAILY gerd #90 tabs 11/17 Unknown Rx release metformin 500 mg tablet 500 mg PO BID 02/15/22 Unknown His tory atorvastatin 20 mg tablet 20 mg PO QHS 03/07/23 Unknown Hist ory losartan 100 mg tablet 100 mg PO DAILY 03/07/23 Unknown H istory metoprolol tartrate 50 mg tablet 50 mg PO BID 11/21/23 Unknown Hist ory benzocaine 15 mg-menthol 2.6 mg 1 cee mucous membrane Q2H PRN sore 02/25/24 Unknown Rx lozenges (Cepacol Sore Throat throat #16 ea (benzocaine-menthol)) apixaban 5 mg tablet 5 mg PO BID #180 tabs 04/28/24 Unk nown Rx amlodipine 10 mg tablet 10 mg PO DAILY #90 tabs 11/10/24 U nknown Rx Allergy/AdvReac Type Severity Reaction Status Date / Time Penicillins Allergy Severe Anaphylaxis Verified 01/09/25 19:02 tetracycline Allergy Severe anaphylaxis Verified 01/09/25 19:02 tramadol (From Ultram) AdvReac Severe syncope Verified 01/09/25 21:02 Family History Mother Pancreatic cancer CAD (coronary artery disease) Father Cancer Lung cancer Brother Parkinson disease Surgical History (Updated 01/10/25 @ 02:12 by (more content not included)... Normal [facility] Hemoglobin A1con 01-10-2025 HbA1c (Bld) [Mass fraction] 13.2 % Normal <=5.6 [facility] Comment on above: Performed By: #### L 501.080 #### [facility] Laboratory [address] [place], [address] Hemoglobin A1c percentageOrd ered By: Keenan Celeste on 01-10-2025 HbA1c (Bld) [Mass fraction] 13.2 % >5.7 [facility] LDL calc ser/plasOrdered By: Oniel Hernandez on 01-10-2025 LDL Cholesterol, Calculated 78 mg/dL [facility] Comment on above: Esljwnohbk=116-541 m g/dL & Higher Uwpy=883 mg/dL or greater Lipid Profileon 01-10-2025 CHOL:HDL 2.91 Normal [facility] Comment on above: Performed By: #### L 501.080 #### [facility] Laboratory [address] [place], [address] Cholesterol [Mass/Vol] 159 mg/dL Normal <=200 [facility] Comment on above: Result Comment: Chol esterol level, Desirable <200 mg/dL Borderline high cholesterol 200-239 mg/dL High cholesterol >=240 mg/dL Recommendations of the NCEP Adult Treatment Panel for the following risk-cutoff thresholds for the [place] population. Performed By: #### L 501.080 #### [facility] Laboratory [address] [place], [address] Cholesterol in HDL [Mass/Vol] 55 mg/dL Normal [facility] Comment on above: Result Comment: Loulou onal Cholesterol Education Program (NCEP) guidelines: <40 mg/dL: Low HDL-cholesterol (major risk factor for CHD) >= 60 mg/dL: High HDL-cholesterol (negative risk factor for CHD) HDL-cholesterol is affected by a number of factors, e.g. smoking, exercise, hormones, sex and age. Performed By: #### L 501.080 #### [facility] Laboratory [address] [place], [address] Cholesterol in LDL [Mass/Vol] 78 mg/dL Normal [facility] Comment on above: Result Comment: Bord gtusan=391-717 mg/dL Higher Znrj=128 mg/dL or greater Performed By: #### L 501.080 #### [facility] Laboratory [address] [place], [address] Cholesterol in VLDL [Mass/Vol] 26 mg/dL Normal 5-40 [facility] Comment on above: Performed By: #### L 501.080 #### [facility] Laboratory [address] [place], [address] Triglyceride [Mass/Vol] 130 mg/dL Normal [facility] Comment on above: Result Comment: The drugs N-Acetylcysteine and Metamizole may falsely depress this assay. Normal range: <150 mg/dL Borderline High: 150-199 mg/dL High: 200-499 mg/dL Very High: >500 mg/dL Performed By: #### L 501.080 #### [facility] Laboratory [address] [place], [address] Magnesiumon 01-10-2025 Magnesium [Mass/Vol] 1.9 mg/dL Normal 1.5-2.2 [facility] Comment on above: Performed By: #### L 501.5200 #### [facility] Laboratory [address] [place], [address] Phosphoruson 01-10-2025 Phosphate [Mass/Vol] 2.9 mg/dL Normal 2.7-4.5 [facility] Comment on above: Performed By: #### L 501.080 #### [facility] Laboratory [address] [place], [address] Screening total cholesterol/ high density lipoprotein (HDL) cholesterol ratioOrdered By: Oniel Hernandez on 01-10-2025 Cholesterol.total/Chol esterol in HDL [Mass ratio] 2.91 {ratio} [facility] Serum or plasma cholesterol in HDL measurement (mass/volume)Ordered By: Oniel Hernandez on 01-10-2025 Cholesterol in HDL [Mass/Vol] 55 mg/dL >40 [facility] Comment on above: National Cholesterol Education Program (NCEP) guidelines:<40 mg/dL: Low HDL-cholesterol (major risk factor for CHD)>= 60 mg/dL: High HDL-cholesterol (negative risk factor for CHD)HDL-cholesterol is affected by a number of factors, e.g. smoking, exercise, hormones, sex and age. Serum or plasma cholesterol measurement (mass/volume)Ordered By: Oniel Hernandez on 01-10-2025 Cholesterol [Mass/Vol] 159 mg/dL <201 [facility] Comment on above: Cholesterol level, D esirable <200 mg/dLBorderline high cholesterol 200-239 mg/dLHigh cholesterol >=240 mg/dLRecommendations of the NCEP Adult Treatment Panel for the following risk-cutoff thresholds for the [place] population. Serum phosphorus measurement Ordered By: Oniel Hernandez on 01-10-2025 Phosphorus Level 2.9 mg/dL 2.7-4.5 [facility] TSH DL <= 0.005 mIU/L QnOrde red By: Oniel Hernandez on 01-10-2025 Thyroid Stimulating Hormone (TSH) 2.180 uIU/mL 0.300-4.200 [facility] Thyroid Stim Hormone (TSH)on 01-10-2025 TSH 2.180 uIU/mL Normal 0.300-4.200 [facility] Comment on above: Performed By: #### L 501.080 #### [facility] Laboratory [facility] [address] [place], [place], [id number] Triglycerides measurementOrd ered By: Oniel Hernandez on 01-10-2025 Triglyceride [Mass/Vol] 130 mg/dL <199 [facility] Comment on above: The drugs N-Acetylcy steine and Metamizole may falsely depress this assay. Normal range: <150 mg/dLBorderline High: 150-199 mg/dLHigh: 200-499 mg/dLVery High: >500 mg/dL Abdomen/Pelvis W IV Cont ONL Yon 01-09-2025 Abdomen/Pelvis W IV Cont ONLY [facility] Imaging Services [address] [place], [place] [address] Abdomen/Pelvis W IV Cont ONLY MR#: [id number] Acct: [id number] Name: TELMA TINEO Rep #: [id number] : 1940 F 84 From: Keenan Jonas MD PCP: Dr. Henok Martinez MD Status: REG ER Study: Abdomen/Pelvis W IV Cont ONLY Date of Exam: Exam# [id number] Ordering Dr: Guille Garnica MD PROCEDURE: ABDOMEN/PELVIS W IV CONT ONLY 01/09/2025 REASON FOR EXAM: JAUNDICE, PAIN. Reid colored stool. Dark urine. Hypertension. Diabetes. Hysterectomy. Appendectomy. TECHNIQUE: Abdomen CT without and with intravenous contrast. Coronal and Sagittal reconstruction series were provided. PATIENT PREPARATION: Per protocol ORAL CONTRAST TYPE: None. CONTRAST: Isovue 370 VOLUME: 92mL One or more dose reduction techniques were used (e.g., Automated exposure control, adjustment of the mA and/or kV according to patient size, use of iterative reconstruction technique. RADIATION DOSE SUMMARY: CTDlvol: 26.86 mGy DLP: 655.55 mGycm COMPARISON: None. COMPARISON: None. FINDINGS: Lung bases: Unremarkable. Liver: Attenuation slightly less than the spleen. Normal-size. No masses. Markedly dilated hepatic duct at 1.3 cm. Mildly dilated intrahepatic bile ducts. Gallbladder: Markedly distended. No gallstones Spleen: Unremarkable. Pancreas: An area of diminished attenuation in the head measuring 1.9 x 1.3 cm, axial image 31, coronal image 47. Dilated pancreatic duct measuring 0.4 cm. Adrenals: Left adrenal gland thickening. Kidneys: Unremarkable. Bladder: Unremarkable. Reproductive Organs: Uterus surgically absent. Bowel: Unremarkable. Appendix: Surgically absent. Lymph nodes: No lymphadenopathy. Vasculature: Mild atherosclerotic calcific disease. Peritoneum / Retroperitoneum: No masses or free fluid. Anterior abdominal wall: Unremarkable. Bones: Mild multilevel spondylosis and degenerative disc disease. CT/Abdomen/Pelvis W IV Cont ONLY IMPRESSION: 1. Dilated hepatic and pancreatic bile ducts. An area of hypoattenuation in the head of the pancreas. These findings are concerning for pancreatic carcinoma. 2. Mild hepatocellular disease. 3. Markedly distended/hydropic gallbladder. 4. Other nonacute findings detailed above. Reading Location: [facility] CC: Dr. Guille Garnica MD; Dr. Henok Martinez MD Supervisor Billposting: Signed Normal [facility] Absolute neutrophil countOrd ered By: Guille Garnica on 01-09-2025 Neutrophils (Bld) [#/Vol] 4.2 10*3/uL 2.0-7.7 [facility] Anion gap in Serum or Plasma Ordered By: Guille Garnica on 01-09-2025 Anion gap [Moles/Vol] 14 mmol/L 03-11 [facility] BUN/creatinine ratioOrdered By: Guille Garnica on 01-09-2025 Urea nitrogen/Creatinine [Mass ratio] 14.0 mg/mg 08-16 [facility] Basic Metabolic Profile (BMP )on 01-09-2025 BUN/CRE 14.0 RATIO Normal 08-16 [facility] Comment on above: Performed By: #### L 100.0100, L501.2450, L500.2500, L300.3900, L500.3400, L300.4310 ####[facility] [address] [place], [address] Calcium [Mass/Vol] 9.9 mg/dL Normal 7.6-11.0 [facility] Comment on above: Performed By: #### L 100.0100, L501.2450, L500.2500, L300.3900, L500.3400, L300.4310 ####[facility] [address] [place], [address] Chloride [Moles/Vol] 98 mmol/L Normal 98-108 [facility] Comment on above: Performed By: #### L 100.0100, L501.2450, L500.2500, L300.3900, L500.3400, L300.4310 ####[facility] [address] [place], [address] CO2 [Moles/Vol] 20.3 mmol/L Low 21.0-32.0 [facility] Comment on above: Performed By: #### L 100.0100, L501.2450, L500.2500, L300.3900, L500.3400, L300.4310 ####[facility] [address] [place], [address] Creatinine [Mass/Vol] 0.81 mg/dL Normal 0.70-1.20 [facility] Comment on above: Result Comment: Icte cristina present, Results may be affected. Performed By: #### L 100.0100, L501.2450, L500.2500, L300.3900, L500.3400, L300.4310 ####[facility] [address] [place], [address] ECRCL 44.58 ml/min Low 50-250 [facility] Comment on above: Performed By: #### L 100.0100, L501.2450, L500.2500, L300.3900, L500.3400, L300.4310 ####[facility] [address] [place], [address] GAP 14 Normal 5-15 [facility] Comment on above: Performed By: #### L 100.0100, L501.2450, L500.2500, L300.3900, L500.3400, L300.4310 ####[facility] [address] [place], [address] GFR/1.73 sq M.predicted among non-blacks MDRD (S/P/Bld) [Vol rate/Area] 71 mL/min/{1.73_m2} Normal >60 [facility] Comment on above: Result Comment: mL/m in/1.73m2 CKD-EPI Creatinine Equation (2020) Performed By: #### L 100.0100, L501.2450, L500.2500, L300.3900, L500.3400, L300.4310 ####[facility] [address] [place], [address] Glucose [Mass/Vol] 418 mg/dL High 70-99 [facility] Comment on above: Performed By: #### L 100.0100, L501.2450, L500.2500, L300.3900, L500.3400, L300.4310 ####[facility] [address] [place], [address] Potassium [Moles/Vol] 3.8 mmol/L Normal 3.3-5.1 [facility] Comment on above: Performed By: #### L 100.0100, L501.2450, L500.2500, L300.3900, L500.3400, L300.4310 ####[facility] [address] [place], [address] Sodium [Moles/Vol] 132 mmol/L Low 133-145 [facility] Comment on above: Performed By: #### L 100.0100, L501.2450, L500.2500, L300.3900, L500.3400, L300.4310 ####[facility] [address] [place], [address] Urea nitrogen [Mass/Vol] 11 mg/dL Normal 4-19 [facility] Comment on above: Performed By: #### L 100.0100, L501.2450, L500.2500, L300.3900, L500.3400, L300.4310 ####[facility] [address] [place], [address] Basophil percentageOrdered B y: Guille Garnica on 01-09-2025 Basophils/100 WBC (Bld) 0.6 % 0-1 [facility] Bilirubin directOrdered By: Guille Garnica on 01-09-2025 Bilirubin.direct [Mass/Vol] 7.64 mg/dL High 0.00-0.30 [facility] Bilirubin, totalOrdered By: Guille Kellyarmando on 01-09-2025 Bilirubin [Mass/Vol] 9.78 mg/dL High 0.00-1.30 [facility] CBC W/Diff, Automatedon 12-26 Absolute Lymph 1.37 X10 3/uL Normal 0.83-4.51 [facility] Comment on above: Performed By: #### L 100.0100, L501.2450, L500.2500, L300.3900, L500.3400, L300.4310 #### [facility] [address] [place], [address] Absolute Neut 4.2 X10 3/uL Normal 2.0-7.7 [facility] Comment on above: Performed By: #### L 100.0100, L501.2450, L500.2500, L300.3900, L500.3400, L300.4310 #### [facility] [address] [place], [address] Basophils/100 WBC (Bld) 0.6 % Normal 0-1 [facility] Comment on above: Performed By: #### L 100.0100, L501.2450, L500.2500, L300.3900, L500.3400, L300.4310 #### [facility] [address] [place], [address] Eosinophils/100 WBC (Bld) 1.1 % Normal 0-5 [facility] Comment on above: Performed By: #### L 100.0100, L501.2450, L500.2500, L300.3900, L500.3400, L300.4310 #### [facility] [address] [place], [address] Erythrocyte distribution width (RBC) [Ratio] 14.6 % Normal 11.6-14.6 [facility] Comment on above: Performed By: #### L 100.0100, L501.2450, L500.2500, L300.3900, L500.3400, L300.4310 #### [facility] [address] [place], [address] Hematocrit (Bld) [Volume fraction] 37.4 % Normal 37-47 [facility] Comment on above: Performed By: #### L 100.0100, L501.2450, L500.2500, L300.3900, L500.3400, L300.4310 #### [facility] [address] [place], [address] Hemoglobin (Bld) [Mass/Vol] 12.6 g/dL Normal 12.0-15.0 [facility] Comment on above: Performed By: #### L 100.0100, L501.2450, L500.2500, L300.3900, L500.3400, L300.4310 #### [facility] [address] [place], [address] IG% 0.300 Normal 0.0-0.9 [facility] Comment on above: Result Comment: IG% - Immature Granulocytes (promyelocytes, myelocytes and metamyelocytes) > 1% indicates that a LEFT SHIFT is Present. Performed By: #### L 100.0100, L501.2450, L500.2500, L300.3900, L500.3400, L300.4310 #### [facility] [address] [place], [address] Lymphocytes/100 WBC (Bld) 21.5 % Normal 19-41 [facility] Comment on above: Performed By: #### L 100.0100, L501.2450, L500.2500, L300.3900, L500.3400, L300.4310 #### [facility] [address] [place], [address] MCH (RBC) [Entitic mass] 29.6 pg Normal 27.0-32.0 [facility] Comment on above: Performed By: #### L 100.0100, L501.2450, L500.2500, L300.3900, L500.3400, L300.4310 #### [facility] [address] [place], [address] MCHC (RBC) [Mass/Vol] 33.7 g/dL Normal 32-36 [facility] Comment on above: Performed By: #### L 100.0100, L501.2450, L500.2500, L300.3900, L500.3400, L300.4310 #### [facility] [address] [place], [address] MCV (RBC) [Entitic vol] 87.8 fL Normal 81-99 [facility] Comment on above: Performed By: #### L 100.0100, L501.2450, L500.2500, L300.3900, L500.3400, L300.4310 #### [facility] [address] [place], [address] Monocytes/100 WBC (Bld) 10.8 % High 0-10 [facility] Comment on above: Performed By: #### L 100.0100, L501.2450, L500.2500, L300.3900, L500.3400, L300.4310 #### [facility] [address] [place], [address] Neutrophils/100 WBC (Bld) 65.7 % Normal 47-70 [facility] Comment on above: Performed By: #### L 100.0100, L501.2450, L500.2500, L300.3900, L500.3400, L300.4310 #### [facility] [address] [place], [address] Nucleated RBC (Bld) [#/Vol] 0 10*3/uL Normal 0-5 [facility] Comment on above: Performed By: #### L 100.0100, L501.2450, L500.2500, L300.3900, L500.3400, L300.4310 #### [facility] [address] [place], [address] Platelet mean volume (Bld) [Entitic vol] 13.7 fL High 6.2-12.0 [facility] Comment on above: Performed By: #### L 100.0100, L501.2450, L500.2500, L300.3900, L500.3400, L300.4310 #### [facility] [address] [place], [address] Platelets (Bld) [#/Vol] 171 10*3/uL Normal 150-450 [facility] Comment on above: Performed By: #### L 100.0100, L501.2450, L500.2500, L300.3900, L500.3400, L300.4310 #### [facility] [address] [place], [address] RBC (Bld) [#/Vol] 4.26 10*6/uL Normal 4.2-5.4 [facility] Comment on above: Performed By: #### L 100.0100, L501.2450, L500.2500, L300.3900, L500.3400, L300.4310 #### [facility] [address] [place], [address] RDW SD 47.2 fl High 35.1-43.9 [facility] Comment on above: Performed By: #### L 100.0100, L501.2450, L500.2500, L300.3900, L500.3400, L300.4310 #### [facility] [address] [place], [address] WBC (Bld) [#/Vol] 6.4 10*3/uL Normal 4.4-11.0 [facility] Comment on above: Performed By: #### L 100.0100, L501.2450, L500.2500, L300.3900, L500.3400, L300.4310 #### [facility] [address] [place], [place], [id number] Cancer antigen 19-9 measurem entOrdered By: Hung Remy on 01-09-2025 CA 19-9 Antigen 355 U/mL High 0-35 [facility] Comment on above: [facility] El ectrochemiluminescence Immunoassay(ECLIA)Values obtained with different assay methods or kits cannotbe used interchangeably. Results cannot be interpreted asabsolute evidence of the presence or absence of malignantdisease.Performed at: [facility] [id number] Director: Barry Hart PhD, Phone: [phone] Carbon dioxide, total [Moles /volume] in Central venous bloodOrdered By: Guille Garnica on 01-09-2025 CO2 [Moles/Vol] 20.3 mmol/L Low 21.0-32.0 [facility] Chloride assayOrdered By: Mario Garnica on 01-09-2025 Chloride [Moles/Vol] 98 mmol/L 98-108 [facility] Emergency Department Summary on 01-09-2025 Emergency Department Summary [facility] Medical Records Department [address] [place] [address] Emergency Department Summary 01/09/25 MR#: [id number] Acct: [id number] Name: TELMA TINEO Rep #: [id number] : 1940 84 From: Guille Garnica MD PCP: Dr. Henok Martinez MD Status:REG ER Location: ED ADDENDUM by Dr. Hung Remy DO on 01/09/25 at 2244 Update 2245 hrs.: Patient was accepted at [facility]. They are stating it is unlikely that a bed will be assigned until at least tomorrow. Per hospital protocol we will wait 6 hours and then I will speak with the hospitalist regarding admission 01/09/25 2102 Cosigner Signature (if applicable): cc: Dr. Henko Martinez MD * Signed HPI History of Present Illness Chief Complaint: Abn Labs Narrative Narrative: 84-year-old female past medical history of hypertension, dysrhythmia, on blood thinners, presents with jaundice. She and her family states that she has been yellow for about a week. She is nauseated but not vomiting. She has dark urine and reid colored stools. She does not drink alcohol. She denies any exacerbating or alleviating factors but her grandson states that she has not taken some of her meds for the last few days. No fevers or chills. [facility] Medical History Neck pain, bilateral History of TIA (transient ischemic attack) Stroke/cerebrovascular accident Essential hypertension Complaint of melena Transient ischemic attack (03/2021) History of Lundberg's palsy GERD (gastroesophageal reflux disease) History of cancer History of blood transfusion Right atrial mass Former smoker Asthma Diabetes mellitus, type 2 Home Medications ???Medication ???Instructions ???Recorded ???Last Taken ???Type multivitamin 1 tab PO DAILY 06/19/21 Unknown Hi story pantoprazole 40 mg tablet,delayed 40 mg PO DAILY gerd #90 tabs 11/17 Unknown Rx release metformin 500 mg tablet 500 mg PO BID 02/15/22 Unknown His tory atorvastatin 20 mg tablet 20 mg PO QHS 03/07/23 Unknown Hist ory losartan 100 mg tablet 100 mg PO DAILY 03/07/23 Unknown H istory metoprolol tartrate 50 mg tablet 50 mg PO BID 11/21/23 Unknown Hist ory benzocaine 15 mg-menthol 2.6 mg 1 cee mucous membrane Q2H PRN sore 02/25/24 Unknown Rx lozenges (Cepacol Sore Throat throat #16 ea (benzocaine-menthol)) apixaban 5 mg tablet 5 mg PO BID #180 tabs 04/28/24 Unk nown Rx amlodipine 10 mg tablet 10 mg PO DAILY #90 tabs 11/10/24 U nknown Rx Allergy/AdvReac Type Severity Reaction Status Date / Time Penicillins Allergy Severe Anaphylaxis Verified 01/09/25 19:02 tetracycline Allergy Severe anaphylaxis Verified 01/09/25 19:02 tramadol (From Ultram) AdvReac Severe syncope Verified 01/09/25 21:02 Family History Mother Pancreatic cancer CAD (coronary artery disease) Father Cancer Lung cancer Brother Parkinson disease Surgical History History of surgery H/O: hysterectomy H/O hemorrhoidectomy History of bladder surgery H/O rhinoplasty History of cataract surgery History of appendectomy Social History Smoking Status: Former smoker how long ago did patient quit smokin+ years alcohol intake: never substance use type: does not use ROS ROS ED ROS Narrative Constitutional: No fever, no chills. HEENT: No sore throat. No neck pain. No loss of vision. No rhinorrhea. Cardiovascular: No chest pain. No palpitations. No pedal edema. Respiratory: No cough, no shortness of breath. Abdominal: No abdominal pain. Positive nausea. No vomiting. Genitourinary: No dysuria. No hematuria. Musculoskeletal: No myalgias. No arthralgias. Neurologic: No headaches. No dizziness. No lightheadedness. Skin: No rash. Positive yellow skin. No itching or pruritus. EXAM Physical Exam Narrative Exam Narrative: Afebrile. Vital signs noted. Nontoxic-appearing. HEENT examination reveals PERRL, EOMI, positive scleral icterus. Cardiovascular examination reveals mild tachycardia, occasionally irregular. Lungs are clear to auscultation bilaterally. Abdomen is soft and nontender without guarding or rebound. Positive bowel sounds. Neurological examination is nonfocal, nonlateralizing. No clonus. Skin examination does show diffuse jaundice especially in the face. Const Vital Signs: 01/09/25 18:39 01/09/25 18:51 01/09/25 20:39 Temperature 97.8 F Temperature Source Oral Pulse Rate 103 H 82 Respiratory Rate 18 20 H Respiratory Effort Normal Respiratory Pattern Normal Blood Pressure 130/95 H 177/87 H Blood Pressure Mean 106 117 Pulse Ox 99 97 (more content not included)... Normal [facility] Eosinophil percentageOrdered By: Guille Garnica on 01-09-2025 Eosinophils/100 WBC (Bld) 1.1 % 0-5 [facility] Erythrocyte distribution wid th ratioOrdered By: Guille Garnica on 01-09-2025 Erythrocyte distribution width (RBC) [Ratio] 14.6 % 11.6-14.6 [facility] Erythrocyte distribution wid th standard deviationOrdered By: Guille Garnica on 01-09-2025 Erythrocyte distribution width (RBC) [Entitic vol] 47.2 fL High 35.1-43.9 [facility] Estimation of creatinine pallavi aranceOrdered By: Guille Garnica on 01-09-2025 Estimated Creatinine Clearance Calc 44.58 ml/min Low 50-250 [facility] GFR/1.73 sq M.predicted karlee g non-blacks MDRD (S/P/Bld) [Vol rate/Area]Ordered By: Guille Garnica on 01-09-2025 Estimated GFR (MDRD) Non-Af Amer 71 >60 [facility] Comment on above: mL/min/1.73m2 CKD-EP I Creatinine Equation (2020) Hematocrit Auto (Bld) [Volum e fraction]Ordered By: Guille Garnica on 01-09-2025 Hematocrit (Bld) [Volume fraction] 37.4 % 37-47 [facility] Hemoglobin measurementOrdere d By: Guille Garnica on 01-09-2025 Hemoglobin (Bld) [Mass/Vol] 12.6 g/dL 12.0-15.0 [facility] Immature granulocytes/100 WB C Auto (Bld)Ordered By: Guille Garnica on 01-09-2025 Immature granulocytes/100 WBC (Bld) 0.300 % 0.0-0.9 [facility] Comment on above: IG% - Immature Granu locytes (promyelocytes, myelocytes and metamyelocytes) > 1% indicates that a LEFT SHIFT is Present. International normalized rat io (INR) calculationOrdered By: Guille Garnica on 01-09-2025 INR Coag (Bld) [Relative time] 1.0 {INR} [facility] - Chemistry and C hemistry - challengeOrdered By: Guille Garnica on 01-09-2025 AST [Catalytic activity/Vol] 308 U/L High <32 [facility] Lipaseon 01-09-2025 Lipase [Catalytic activity/Vol] 224 U/L High 13-75 [facility] Comment on above: Result Comment: Kisha kimbrough note: LIPASE revised reference range effective 23. New Lipase methodology. Expected to produce lower values than the previous assay method. NEW Reference Range: 13 - 75 U/L Performed By: #### L 100.0100, L501.2450, L500.2500, L300.3900, L500.3400, L300.4310 ####[facility] [address] [place], [address] Lipase measurementOrdered By : Guille Garnica on 01-09-2025 Lipase [Catalytic activity/Vol] 224 U/L High 13-75 [facility] Comment on above: Please note:LIPASE r evised reference range effective 23. New Lipase methodology. Expected to produce lower values than the previous assay method. NEW Reference Range: 13 - 75 U/L Liver Profileon 01-09-2025 Albumin [Mass/Vol] 4.2 g/dL Normal 3.4-4.8 [facility] Comment on above: Performed By: #### L 100.0100, L501.2450, L500.2500, L300.3900, L500.3400, L300.4310 ####[facility] [address] [place], [address] ALK PHOS 416 U/L High 35-104 [facility] Comment on above: Performed By: #### L 100.0100, L501.2450, L500.2500, L300.3900, L500.3400, L300.4310 ####[facility] [address] [place], [address] ALT [Catalytic activity/Vol] 390 U/L High <=34 [facility] Comment on above: Performed By: #### L 100.0100, L501.2450, L500.2500, L300.3900, L500.3400, L300.4310 ####[facility] [address] [place], [address] AST [Catalytic activity/Vol] 308 U/L High <=31 [facility] Comment on above: Performed By: #### L 100.0100, L501.2450, L500.2500, L300.3900, L500.3400, L300.4310 ####[facility] [address] [place], [address] Bilirubin [Mass/Vol] 9.78 mg/dL High 0.00-1.30 [facility] Comment on above: Performed By: #### L 100.0100, L501.2450, L500.2500, L300.3900, L500.3400, L300.4310 ####[facility] [address] [place], [address] Bilirubin.direct [Mass/Vol] 7.64 mg/dL High 0.00-0.30 [facility] Comment on above: Performed By: #### L 100.0100, L501.2450, L500.2500, L300.3900, L500.3400, L300.4310 ####[facility] [address] [place], [address] Globulin (S) [Mass/Vol] 3.1 g/dL Normal 2.2-4.2 [facility] Comment on above: Performed By: #### L 100.0100, L501.2450, L500.2500, L300.3900, L500.3400, L300.4310 ####[facility] [address] [place], [address] T PROT 7.3 g/dL Normal 5.9-8.4 [facility] Comment on above: Performed By: #### L 100.0100, L501.2450, L500.2500, L300.3900, L500.3400, L300.4310 ####[facility] [address] [place], [address] Lymphocytes Auto (Unsp spec) [#/Vol]Ordered By: Guille Garnica on 01-09-2025 Lymphocytes (Bld) [#/Vol] 1.37 10*3/uL 0.83-4.51 [facility] Lymphocytes/100 WBC Auto (Un sp spec)Ordered By: Guille Garnica on 01-09-2025 Lymphocytes/100 WBC (Bld) 21.5 % 19-41 [facility] MCV (mean corpuscular volume ) determinationOrdered By: Guille Garnica on 01-09-2025 MCV (RBC) [Entitic vol] 87.8 fL 81-99 [facility] Magnesium (Unsp spec) [Mass/ Vol]Ordered By: Oniel Hernandez on 01-09-2025 Magnesium [Mass/Vol] 1.9 mg/dL 1.5-2.2 [facility] Mean corpuscular hemoglobin (MCH) determinationOrdered By: Guille Garnica on 01-09-2025 MCH (RBC) [Entitic mass] 29.6 pg 27.0-32.0 [facility] Mean corpuscular hemoglobin concentration (MCHC) determinationOrdered By: Guille Garnica on 01-09-2025 MCHC (RBC) [Mass/Vol] 33.7 g/dL 32-36 [facility] Mean platelet volume determi nationOrdered By: Guille Garnica on 01-09-2025 Platelet mean volume (Bld) [Entitic vol] 13.7 fL High 6.2-12.0 [facility] Monocyte percentageOrdered B y: Guille Garnica on 01-09-2025 Monocytes/100 WBC (Bld) 10.8 % High 0-10 [facility] Neutrophil percentageOrdered By: Guille Garnica on 01-09-2025 Neutrophils/100 WBC (Bld) 65.7 % 47-70 [facility] No Panel InformationOrdered By: Hung Remy on 01-09-2025 CA 19-9 Antigen Serial Monitoring Not Reportable [facility] Nucleated red blood cell per centageOrdered By: Guille Garnica on 01-09-2025 Nucleated RBC/100 WBC (Bld) [Ratio] 0 % 0-5 [facility] Partial Thromboplast Timeon 01-09-2025 aPTT Coag (Bld) [Time] 26.1 s Normal 24.1-36.2 [facility] Comment on above: Performed By: #### L 100.0100, L501.2450, L500.2500, L300.3900, L500.3400, L300.4310 ####[facility] [address] [place], [address] Platelet countOrdered By: Mario Garnica on 01-09-2025 Platelets (Bld) [#/Vol] 171 10*3/uL 150-450 [facility] Potassium (Unsp spec) [Mass/ Vol]Ordered By: Guille Garnica on 01-09-2025 Potassium [Moles/Vol] 3.8 mmol/L 3.3-5.1 [facility] Prothrombin Time w/INRon INR Coag (PPP) [Relative time] 1.0 {INR} Normal [facility] Comment on above: Performed By: #### L 100.0100, L501.2450, L500.2500, L300.3900, L500.3400, L300.4310 ####[facility] [address] [place], [address] PT Coag (PPP) [Time] 12.8 s Normal 11.7-14.9 [facility] Comment on above: Performed By: #### L 100.0100, L501.2450, L500.2500, L300.3900, L500.3400, L300.4310 ####[facility] [address] [place], [address] Prothrombin timeOrdered By: Guille Garnica on 01-09-2025 PT Coag (PPP) [Time] 12.8 s 11.7-14.9 [facility] RBC Auto (Bld) [#/Vol]Ordere d By: Guille Garnica on 01-09-2025 RBC (Bld) [#/Vol] 4.26 10*6/uL 4.2-5.4 [facility] Serum creatinine measurement (mass/volume)Ordered By: Guille Garnica on 01-09-2025 Creatinine [Mass/Vol] 0.81 mg/dL 0.70-1.20 [facility] Comment on above: Icterus present, Res ults may be affected. Serum globulin measurementOr dered By: Guille Garnica on 01-09-2025 Globulin (S) [Mass/Vol] 3.1 g/dL 2.2-4.2 [facility] Serum glucose measurement (m ass/volume)Ordered By: Guille Garnica on 01-09-2025 Glucose [Mass/Vol] 418 mg/dL High 70-99 [facility] Serum or plasma alanine mendoza otransferase (ALT) measurementOrdered By: Guille Garnica on 01-09-2025 ALT [Catalytic activity/Vol] 390 U/L High <35 [facility] Serum or plasma albumin froylan urement (mass/volume)Ordered By: Guille Garnica on 01-09-2025 Albumin [Mass/Vol] 4.2 g/dL 3.4-4.8 [facility] Serum or plasma alkaline charli sphatase measurementOrdered By: Guille Garnica on 01-09-2025 ALP [Catalytic activity/Vol] 416 U/L High 35-104 [facility] Serum or plasma calcium froylan urement (mass/volume)Ordered By: Guille Garnica on 01-09-2025 Calcium [Mass/Vol] 9.9 mg/dL 7.6-11.0 [facility] Serum or plasma urea nitroge n measurement (mass/volume)Ordered By: Guille Garnica on 01-09-2025 Urea nitrogen [Mass/Vol] 11 mg/dL 4-19 [facility] Sodium levelOrdered By: Guille Garnica on 01-09-2025 Sodium [Moles/Vol] 132 mmol/L Low 133-145 [facility] Total proteinOrdered By: Angelica Garnica on 01-09-2025 Protein [Mass/Vol] 7.3 g/dL 5.9-8.4 [facility] White blood cell (WBC) count Ordered By: Guille Garnica on 01-09-2025 WBC (Bld) [#/Vol] 6.4 10*3/uL 4.4-11.0 [facility] aPTT Coag (PPP) [Time]Ordere d By: Guille Garnica on 01-09-2025 aPTT Coag (Bld) [Time] 26.1 s 24.1-36.2 [facility] CNOVon 11-17-2024 CNOV Office Visit (PULMWS ) -- TELMA TINEO ([id number]) 1940 F Date Time Provider Department 11/17/24 1:00 PM ANGELIA HART PULMWS During your visit today, we recorded the following information about you: Pulse Respiration Blood pressure 72/minute 16/minute 104/62 Angelia Hart, LEAD [employer] ENGINEER.POLE INCISOR OPERATOR 11/17/2024 3:21 PM Signed Pulmonary Medicine Patients name: Telma Tineo PCP: Henok Martinez MD CC: follow-up HPI: Telma Tineo is a 84 year old female former minimal smoker with PMH significant for CVA, HTN, DM2, GERD, chronic Afib (Eliquis), obesity, longstanding asthma, allergies presenting for follow-up. Current therapy with Breo Ellipta and as needed Albuterol. ESTELLE 05/[address] Medley with stable Asthma/Bronchiectasis. Was seen by PCP in September for productive cough, SOB, headache and ear pain. Treated with Levaquin for Bronchitis. Also recommended barium swallow d/t hx of dysphasia and reported food getting caught in her throat. PPI also increased to BID. Completed barium swallow 11/09 with No evidence of aspiration, Focal indentation along the anterior mid thoracic esophagus. Seen again in PCP office 2 weeks ago with complaints of hemoptysis and upper abdomen pain. Ultrasound of rt upper abodmen and spleen without acute abnormality. Chest xray also normal. Today, patient reports productive cough with white/sticky sputum, feels like its stuck in her throat. Constantly clearing her throat. No longer having hemoptysis. Notes her nose was dry and would have blood when she blew her nose when having hemoptysis. Sinus congestion has improved but having PND. Family has noted wheezing. No dyspnea at rest. Exertional dyspnea has not changed. No fevers, chills, or night sweats. GERD/heartburn symptoms mildly improved with increase in PPI. Ran out of Corengi and has been out since the beginning of the year. Has not been using Albuterol. PAST MEDICAL HISTORY Diagnosis Date Allergies Lundberg's palsy Bronchiectasis (HCC) Gastroesophageal reflux disease without esophagitis History of CVA (cerebrovascular accident) Mild intermittent asthma without complication Primary hypertension Type 2 diabetes mellitus without complication, without long-term current use of insulin ([facility]) Allergies: Penicillins Anaphylaxis Tetracycline Rash Tramadol Intolerance Comment:Trembling Medication List Accurate as of November 17, 2024 8:35 AM. If you have any questions, ask your nurse or doctor. CONTINUE taking these medications amLODIPine 10 mg tablet Commonly known as: NORVASC atorvastatin 20 mg tablet Commonly known as: LIPITOR Take 1 tablet by mouth once daily. benzocaine-menthol 15-2.6 mg Lozg lozenge Commonly known as: CEPACOL Blood Pressure Test Kit-Large Commonly known as: Mapidy ARM BP MONITOR 1 Each once daily. cyclobenzaprine 5 mg tablet Commonly known as: FLEXERIL Take 1 tablet by mouth two times a day as needed for muscle spasm. ELIQUIS 5 mg tab(s) Generic drug: apixaban fluticasone-vilanterol 100-25 mcg/dose inhaler Commonly known as: BREO ELLIPTA Inhale 1 Inhalation as instructed once daily. losartan 100 mg tablet Commonly known as: COZAAR Take 1 tablet by mouth once daily. metFORMIN 500 mg tablet Commonly known as: GLUCOPHAGE Take 2 tablets by mouth two times a day with meals. metoprolol tartrate (short acting) 50 mg tablet Commonly known as: LOPRESSOR Take 1.5 tablets by mouth two times a day. MSM 1,000 mg Cap Generic drug: Methylsulfonylmethane pantoprazole DR 40 mg tablet Commonly known as: PROTONIX Take 1 tablet by mouth two times a day. Promethazine-DM 6.25-15 mg/5 mL syrup Commonly known as: PHENERGAN-DM Take 5 mL by mouth four times a day as needed. Systane GeL 0.3 % Gel Generic drug: Artificial Tear (Hypromellose) Use 1 Drop in both eyes daily at bedtime. SYSTANE ULTRA 0.4-0.3 % ophthalmic solution Generic drug: PEG 400-propylene glycol Use 1 Drop in both eyes three times a day. DATA: I personally reviewed and analyzed all labs, radiographs and available pulmonary function testing PFT: 09/2022 Spirometry is normal. There was not a significant bronchodilator response. The TLC, RV and RV/TLC are normal. The presence of a reduced lung diffusing capacity - that does not normalize when measured independent of alveolar volume (kCO) suggests a parenchymal or pulmonary vascular disorder. CXR: Last XR Chest - Impression Only XR CHEST 2V FRONTAL/LAT Exam End: 11/05/2024 9:24 AM (Final result) Impression: IMPRESSION: No acute radiographic abnormality. ... CT Chest: 10/2022 IMPRESSION: Mild bronchiectasis at the lung bases. Borderline mediastinal and axillary nodes measure at or near 1 cm. No suspicious mass or definite lymphadenopathy within the chest. Supervisor Billposting: [facility] Transcribe Date/Time: Nov 21 2022 4:33P Dict (more content not included)... Normal [facility] Abdomen RUQon 11-14-2024 IMPRESSION: No acute abnormality. No cholelithiasis. No biliary dilatation. The spleen is normal size. Supervisor Billposting: [facility] Transcribe Date/Time: Nov 14 2024 6:40A Dictated by : CHANEL NARAYANAN MD This examination was interpreted and the report reviewed and electronically signed by: CHANEL NARAYANAN MD on Nov 14 2024 6:41AM [facility] DIVISION OF RADIOLOGY * * *Final Report* * * DATE OF EXAM: Nov 12 2024 2:54PM [facility] 1032 - US ABD RIGHT UPPER QUADRANT / PROCEDURE REASON: multiple diagnoses * * * * Physician Interpretation * * * * EXAMINATION: RIGHT UPPER QUADRANT AND SPLEEN ULTRASOUND HISTORY: Epigastric pain Elevated lipase . TECHNIQUE: Sonography of the right upper quadrant and spleen was performed. Images were obtained and stored in a permanent archive. MQ: URUQ_2 COMPARISON: Chest CT from 11/20/2022. RESULT: Pancreas: Pancreatic duct upper normal caliber proximally. Portions obscured: tail Liver: Echotexture: Normal, homogeneous. Echogenicity: Normal Surface contour: Smooth Lesions: none Main portal vein appears patent. Biliary: No intrahepatic biliary duct dilation. CBD: 0.5 cm at the hilum. Gallbladder: Normal caliber -Contents: No cholelithiasis -Wall: Normal -Other: No pericholecystic fluid. Sonographic Moreira sign was reported negative. Right Kidney: No hydronephrosis. Ascites: None. Spleen: The craniocaudal length of the spleen is 8.0 cm, normal. There are no splenic lesions. Left Kidney: No hydronephrosis. - DIVISION OF RADIOLOGY Provider, [facility] - 11/14/2024 * * *Final Report* * * DATE OF EXAM: Nov 12 2024 2:54PM [facility] 1032 - US ABD RIGHT UPPER QUADRANT / PROCEDURE REASON: multiple diagnoses * * * * Physician Interpretation * * * * EXAMINATION: RIGHT UPPER QUADRANT AND SPLEEN ULTRASOUND HISTORY: Epigastric pain Elevated lipase . TECHNIQUE: Sonography of the right upper quadrant and spleen was performed. Images were obtained and stored in a permanent archive. MQ: URUQ_2 COMPARISON: Chest CT from 11/20/2022. RESULT: Pancreas: Pancreatic duct upper normal caliber proximally. Portions obscured: tail Liver: Echotexture: Normal, homogeneous. Echogenicity: Normal Surface contour: Smooth Lesions: none Main portal vein appears patent. Biliary: No intrahepatic biliary duct dilation. CBD: 0.5 cm at the hilum. Gallbladder: Normal caliber -Contents: No cholelithiasis -Wall: Normal -Other: No pericholecystic fluid. Sonographic Moreira sign was reported negative. Right Kidney: No hydronephrosis. Ascites: None. Spleen: The craniocaudal length of the spleen is 8.0 cm, normal. There are no splenic lesions. Left Kidney: No hydronephrosis. - IMPRESSION IMPRESSION: No acute abnormality. No cholelithiasis. No biliary dilatation. The spleen is normal size. Supervisor Billposting: [employer] Transcribe Date/Time: Nov 14 2024 6:40A Dictated by : CHANEL NARAYANAN MD This examination was interpreted and the report reviewed and electronically signed by: CHANEL NARAYANAN MD on Nov 14 2024 6:41AM EST [facility] US Abdomen RUQOrdered By: Molly carlson Provider on 11-14-2024 [facility] US ABD RIGHT UPPER QUADRANTo n 11-12-2024 US ABD RIGHT UPPER QUADRANT * * *Final Report* * * DATE OF EXAM: Nov 12 2024 2:54PM [facility] 1032 - US ABD RIGHT UPPER QUADRANT / PROCEDURE REASON: multiple diagnoses * * * * Physician Interpretation * * * * EXAMINATION: RIGHT UPPER QUADRANT AND SPLEEN ULTRASOUND HISTORY: Epigastric pain Elevated lipase . TECHNIQUE: Sonography of the right upper quadrant and spleen was performed. Images were obtained and stored in a permanent archive. MQ: URUQ_2 COMPARISON: Chest CT from 11/20/2022. RESULT: Pancreas: Pancreatic duct upper normal caliber proximally. Portions obscured: tail Liver: Echotexture: Normal, homogeneous. Echogenicity: Normal Surface contour: Smooth Lesions: none Main portal vein appears patent. Biliary: No intrahepatic biliary duct dilation. CBD: 0.5 cm at the hilum. Gallbladder: Normal caliber -Contents: No cholelithiasis -Wall: Normal -Other: No pericholecystic fluid. Sonographic Moreira sign was reported negative. Right Kidney: No hydronephrosis. Ascites: None. Spleen: The craniocaudal length of the spleen is 8.0 cm, normal. There are no splenic lesions. Left Kidney: No hydronephrosis. - IMPRESSION: No acute abnormality. No cholelithiasis. No biliary dilatation. The spleen is normal size. Supervisor Billposting: [facility] Transcribe Date/Time: Nov 14 2024 6:40A Dictated by : CHANEL NARAYANAN MD This examination was interpreted and the report reviewed and electronically signed by: CHANEL NARAYANAN MD on Nov 14 2024 6:41AM EST [id number] Normal [facility] US ABD SPLEEN -NBon 11-12-19 US ABD SPLEEN -NB * * *Final Report* * * DATE OF EXAM: Nov 12 2024 2:54PM [facility] 1232 - US ABD SPLEEN -NB / PROCEDURE REASON: multiple diagnoses * * * * Physician Interpretation * * * * EXAMINATION: RIGHT UPPER QUADRANT AND SPLEEN ULTRASOUND HISTORY: Epigastric pain Elevated lipase . TECHNIQUE: Sonography of the right upper quadrant and spleen was performed. Images were obtained and stored in a permanent archive. MQ: URUQ_2 COMPARISON: Chest CT from 11/20/2022. RESULT: Pancreas: Pancreatic duct upper normal caliber proximally. Portions obscured: tail Liver: Echotexture: Normal, homogeneous. Echogenicity: Normal Surface contour: Smooth Lesions: none Main portal vein appears patent. Biliary: No intrahepatic biliary duct dilation. CBD: 0.5 cm at the hilum. Gallbladder: Normal caliber -Contents: No cholelithiasis -Wall: Normal -Other: No pericholecystic fluid. Sonographic Moreira sign was reported negative. Right Kidney: No hydronephrosis. Ascites: None. Spleen: The craniocaudal length of the spleen is 8.0 cm, normal. There are no splenic lesions. Left Kidney: No hydronephrosis. - IMPRESSION: No acute abnormality. No cholelithiasis. No biliary dilatation. The spleen is normal size. Supervisor Billposting: [facility] Transcribe Date/Time: Nov 14 2024 6:40A Dictated by : CHANEL NARAYANAN MD This examination was interpreted and the report reviewed and electronically signed by: CHANEL NARAYANAN MD on Nov 14 2024 6:41AM EST [id number] Normal [facility] US Abdomen RUQon 11-12-2024 Radiology Study observation (narrative) [facility] CNTHERAPYon 11-09-2024 CNTHERAPY OT/PT/Speech Visit ([facility]) -- TELMA TINEO ([id number]) 1940 F Date Time Provider Department 11/09/24 10:30 AM MELIZA WADSWORTH Date Time Provider Department Center 11/09/2024 10:30 AM [id number], JOYCE [facility] Reason for Visit: Speech Instrumental Swallow Eval [3660] Speech Discharge [3488] Primary Visit Diagnosis:Dysphagia, oropharyngeal phase [R13.12] Allergies As of Date: 11/09/2024 Noted Allergy Reaction PENICILLINS 09/14/2021 10 - Anaphylaxis TETRACYCLINE 09/14/2021 2 - Rash TRAMADOL 07/01/2024 5 - Intolerance Comments: Trembling Date Reviewed: 11/04/2024 Reviewed by: Li Allison MA - Fully Assessed Prescriptions as of 11/09/2024 - pantoprazole DR (PROTONIX) 40 mg tablet Take 1 tablet by mouth two times a day. - cyclobenzaprine (FLEXERIL) 5 mg tablet Take 1 tablet by mouth two times a day as needed for muscle spasm. - PEG 400-propylene glycol (SYSTANE ULTRA) 0.4-0.3 % ophthalmic solution Use 1 Drop in both eyes three times a day. - Artificial Tear, Hypromellose, (SYSTANE GEL) 0.3 % gel Use 1 Drop in both eyes daily at bedtime. - atorvastatin (LIPITOR) 20 mg tablet Take 1 tablet by mouth once daily. - ELIQUIS 5 mg tab(s) Take 5 mg by mouth two times a day. - benzocaine-menthol (CEPACOL) 15-2.6 mg lozg lozenge Take 1 Lozenge by mouth every 4 hours as needed for pain. - fluticasone-vilanterol (BREO ELLIPTA) 100-25 mcg/dose inhaler Inhale 1 Inhalation as instructed once daily. - Promethazine-DM (PHENERGAN-DM) 6.25-15 mg/5 mL syrup Take 5 mL by mouth four times a day as needed. - metoprolol tartrate, short acting, (LOPRESSOR) 50 mg tablet Take 1.5 tablets by mouth two times a day. - losartan (COZAAR) 100 mg tablet Take 1 tablet by mouth once daily. - amLODIPine (NORVASC) 10 mg tablet Take 10 mg by mouth once daily. - metFORMIN (GLUCOPHAGE) 500 mg tablet Take 2 tablets by mouth two times a day with meals. - Blood Pressure Test Kit-Large (FirmexLIFE ARM BP MONITOR) 1 Each once daily. - Methylsulfonylmethane (MSM) 1,000 mg cap Take 1 capsule by mouth once daily. Letter Text [facility] RF videography Hypopharynx a nd Esophagus Views W liquid and paste contrast PO during swallowingon 11-09-2024 * * *Final Report* * * DATE OF EXAM: Nov 09 2024 12:32PM MDX 5377 - XR MOD BARIUM SWALLOW W SPEECH / PROCEDURE REASON: R13.12-Oropharyngeal dysphagia * * * * Physician Interpretation * * * * Videoesophagus HISTORY: Indication: Oropharyngeal dysphagia TECHNIQUE: The examination was monitored by the speech pathologist. The patient was given different consistencies of barium and barium-coated foods to swallow. Fluoroscopic Radiation Summary: Plane A, Air Kerma: 26.6 mGy Dose Area Product (DAP): 8355.1 mGy*cm2 Fluoro time: 2:30 min:sec Images obtained: 11 Cineflouroscopy images under fluoroscopic guidance. Images were stored in a permanent archive Images obtained: Multiple spot film images under fluoroscopic guidance. Comparison: NONE. RESULT: Findings: No evidence of aspiration. Focal indentation along the anterior mid thoracic esophagus which may relate to left atrial enlargement. Impression: 1. No evidence of aspiration 2. See Speech and Hearing therapist report for further evaluation Supervisor Billposting: [employer] Transcribe Date/Time: Nov 09 2024 1:03P Dictated by : KEVON EUBANKS MD This examination was interpreted and the report reviewed and electronically signed by: KEVON EUBANKS MD on Nov 09 2024 1:11PM [facility] RADIOLOGY Provider, [facility] - 11/09/2024 * * *Final Report* * * DATE OF EXAM: Nov 09 2024 12:32PM MDX 5377 - XR MOD BARIUM SWALLOW W SPEECH / PROCEDURE REASON: R13.12-Oropharyngeal dysphagia * * * * Physician Interpretation * * * * Videoesophagus HISTORY: Indication: Oropharyngeal dysphagia TECHNIQUE: The examination was monitored by the speech pathologist. The patient was given different consistencies of barium and barium-coated foods to swallow. Fluoroscopic Radiation Summary: Plane A, Air Kerma: 26.6 mGy Dose Area Product (DAP): 8355.1 mGy*cm2 Fluoro time: 2:30 min:sec Images obtained: 11 Cineflouroscopy images under fluoroscopic guidance. Images were stored in a permanent archive Images obtained: Multiple spot film images under fluoroscopic guidance. Comparison: NONE. RESULT: Findings: No evidence of aspiration. Focal indentation along the anterior mid thoracic esophagus which may relate to left atrial enlargement. Impression: 1. No evidence of aspiration 2. See Speech and Hearing therapist report for further evaluation Supervisor Billposting: [employer] Transcribe Date/Time: Nov 09 2024 1:03P Dictated by : KEVON EUBANKS MD This examination was interpreted and the report reviewed and electronically signed by: KEVON EUBANKS MD on Nov 09 2024 1:11PM EST [facility] Radiology Study observation (narrative) [facility] RF videography Hypopharynx a nd Esophagus Views W liquid and paste contrast PO during swallowingOrdered By: [facility] Provider on 11-09-2024 [facility] XR MOD BARIUM SWALLOW W SPEE Benjamin 11-09-2024 XR MOD BARIUM SWALLOW W SPEECH * * *Final Report* * * DATE OF EXAM: Nov 09 2024 12:32PM MDX 5377 - XR MOD BARIUM SWALLOW W SPEECH / PROCEDURE REASON: R13.12-Oropharyngeal dysphagia * * * * Physician Interpretation * * * * Videoesophagus HISTORY: Indication: Oropharyngeal dysphagia TECHNIQUE: The examination was monitored by the speech pathologist. The patient was given different consistencies of barium and barium-coated foods to swallow. Fluoroscopic Radiation Summary: Plane A, Air Kerma: 26.6 mGy Dose Area Product (DAP): 8355.1 mGy*cm2 Fluoro time: 2:30 min:sec Images obtained: 11 Cineflouroscopy images under fluoroscopic guidance. Images were stored in a permanent archive Images obtained: Multiple spot film images under fluoroscopic guidance. Comparison: NONE. RESULT: Findings: No evidence of aspiration. Focal indentation along the anterior mid thoracic esophagus which may relate to left atrial enlargement. Impression: 1. No evidence of aspiration 2. See Speech and Hearing therapist report for further evaluation Supervisor Billposting: [employer] Transcribe Date/Time: Nov 09 2024 1:03P Dictated by : KEVON EUBANKS MD This examination was interpreted and the report reviewed and electronically signed by: KEVON EUBANKS MD on Nov 09 2024 1:11PM EST [id number] [facility] CNPClarissa 11-06-2024 [facility] Telephone ([facility]) -- TELMA TINEO ([id number]) 1940 F Date Time Provider Department 11/06/24 HENOK MARTINEZWS During your visit today, we recorded the following information about you: Henok Martinez MD 11/06/2024 9:48 AM Signed Sugars are way to high, see endo. Lipase or pancreatic enzyme is very mildly up. How is her stomach pain? Let me know Daina Ríos RN 11/06/2024 9:57 AM Signed Called and left a voicemail for the Patient and her daughter Sujata to call back and ask for a nurse to receive the providers message. MAGNUS Easton Stephanie, RN 11/06/2024 11:03 AM Signed Patient's son Timtohy notified of results and provider's instructions. Patient's son verbalizes understanding. Timothy states that the stomach pain is the same as she was having. MAGNUS Warren William J, MD 11/06/2024 11:24 AM Signed OK set up for endo. Call if pain worsens, light diet. Recheck lipase and follow up next week. Avoid any etoh. Get ruq us. Li Allison MA 11/06/2024 12:53 PM Signed Spoke with patients sonTimothy. Informed and verbalized understanding. Endo appt already scheduled. Advised to gets labs next week. Sending to schedulers for US. Li Allison MA Allergies As of Date: 11/06/2024 Noted Allergy Reaction PENICILLINS 09/14/2021 10 - Anaphylaxis TETRACYCLINE 09/14/2021 2 - Rash TRAMADOL 07/01/2024 5 - Intolerance Comments: Trembling Date Reviewed: 11/04/2024 Reviewed by: Li Allison MA - Fully Assessed Reason for Visit: Results [95] Primary Visit Diagnosis:Type 2 diabetes mellitus without complication, without long-term current use of insulin (HCC) [E11.9] Other Visit Diagnoses:Epigastric pain [R10.13] Elevated lipase [R74.8] Order(s):LIPASE [SQLIPA] Order #: [id number] FUTURE US ABD RIGHT UPPER QUADRANT [1797284] Order #: [id number] FUTURE CONSULT TO ENDOCRINOLOGY [4881] Order #: [id number]: 1 FUTURE Prescriptions as of 11/14/2024 - pantoprazole DR (PROTONIX) 40 mg tablet Take 1 tablet by mouth two times a day. - cyclobenzaprine (FLEXERIL) 5 mg tablet Take 1 tablet by mouth two times a day as needed for muscle spasm. - PEG 400-propylene glycol (SYSTANE ULTRA) 0.4-0.3 % ophthalmic solution Use 1 Drop in both eyes three times a day. - Artificial Tear, Hypromellose, (SYSTANE GEL) 0.3 % gel Use 1 Drop in both eyes daily at bedtime. - atorvastatin (LIPITOR) 20 mg tablet Take 1 tablet by mouth once daily. - ELIQUIS 5 mg tab(s) Take 5 mg by mouth two times a day. - benzocaine-menthol (CEPACOL) 15-2.6 mg lozg lozenge Take 1 Lozenge by mouth every 4 hours as needed for pain. - fluticasone-vilanterol (BREO ELLIPTA) 100-25 mcg/dose inhaler Inhale 1 Inhalation as instructed once daily. - Promethazine-DM (PHENERGAN-DM) 6.25-15 mg/5 mL syrup Take 5 mL by mouth four times a day as needed. - metoprolol tartrate, short acting, (LOPRESSOR) 50 mg tablet Take 1.5 tablets by mouth two times a day. - losartan (COZAAR) 100 mg tablet Take 1 tablet by mouth once daily. - amLODIPine (NORVASC) 10 mg tablet Take 10 mg by mouth once daily. - metFORMIN (GLUCOPHAGE) 500 mg tablet Take 2 tablets by mouth two times a day with meals. - Blood Pressure Test Kit-Large (Mapidy ARM BP MONITOR) 1 Each once daily. - Methylsulfonylmethane (MSM) 1,000 mg cap Take 1 capsule by mouth once daily. 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/2021 History of uterine cancer [Z85.42] 09/14/2021 Bronchiectasis without complication (HCC) [J47.*11/22/2022 Atrial fibrillation, unspecified type (HCC) [I4*04/15/2023 Candidiasis of vagina [B37.31] 05/20/2023 05/20/2023 Diagnosed: 05/20/2023 Chest pain [R07.9] 03/12/2023 07/01/2024 Diagnosed: 05/20/2023 Hyperlipidemia [E78.5] 05/20/2023 Diagnosed: 05/20/2023 Impaired cognition [R41.89] 05/20/2023 Diagnosed: 05/20/2023 assisted current use of anticoagulant therapy *05/20/2023 Diagnosed: 05/20/2023 Neck pain [M54.2] 05/20/2023 05/20/2023 Diagnosed: 05/20/2023 Cerebrovascular accident (CVA) (HCC) [I63.9] 05/20/2023 Diagnosed: 05/20/2023 Encounter Status:Closed by HENOK MARTINEZ on 11/14/24 Normal [facility] ALBUMIN/CREATININE RATIO, UR INEon 11-05-2024 Albumin DL <= 20 mg/L (U) [Mass/Vol] 43.1 mg/L Normal [facility] Comment on above: Order Comment: Speci men Type: URINE SPECIMEN Ordering Facility: [facility] Address: [address] [place] [address] Performed By: #### U ACR #### [facility] CLIA [id number] [address] [place] [address] [place] Albumin/Creatinine (U) [Mass ratio] 53 mg/g High <30 [facility] Comment on above: Order Comment: Speci men Type: URINE SPECIMEN Ordering Facility: [facility] Address: [address] [place] [address] Result Comment: Adul t Male and Female Nephrotic Criteria: <30 mg/g is considered normal to mildly increased 30-300 mg/g is considered moderately increased >300 mg/g is considered severely increased KDIGO. (2013). KDIGO 2012 Clinical Practice Guideline for the Evaluation and Management of Chronic Kidney Disease. Official Journal of the International Society of Nephrology, 3(1), 1-150. Performed By: #### U ACR #### [facility] CLIA [id number] [address] [place] [address] [place] Creatinine (U) [Mass/Vol] 81.6 mg/dL Normal 20.0-300.0 [facility] Comment on above: Order Comment: Speci men Type: URINE SPECIMEN Ordering Facility: [facility] Address: [address] [place] [address] Performed By: #### U ACR #### [facility] CLIA [id number] [address] [place] [address] [place] CBC W Auto Differential pane l (Bld)on 11-05-2024 Basophils (Bld) [#/Vol] 0.04 10*3/uL Normal <0.11 [facility] Comment on above: Order Comment: Speci men Type: BLOOD SPECIMEN Ordering Facility: [facility] Address: [address] [place] [address] Performed By: #### 5 7021-8 #### [facility] CLIA [id number] [address] [place] [address] [place] Basophils/100 WBC (Bld) 0.5 % Normal [facility] Comment on above: Order Comment: Speci men Type: BLOOD SPECIMEN Ordering Facility: [facility] Address: [address] [place] [address] Performed By: #### 5 7021-8 #### [facility] CLIA [id number] [address] [place] [address] [place] Differential cell count method Nom (Bld) Auto Normal [facility] Comment on above: Order Comment: Speci men Type: BLOOD SPECIMEN Ordering Facility: [facility] Address: [address] [place] [address] Performed By: #### 5 7021-8 #### [facility] CLIA [id number] [address] [place] [address] [place] Eosinophils (Bld) [#/Vol] 0.19 10*3/uL Normal <0.46 [facility] Comment on above: Order Comment: Speci men Type: BLOOD SPECIMEN Ordering Facility: [facility] Address: [address] [place] [address] Performed By: #### 5 7021-8 #### [facility] CLIA [id number] [address] [place] [address] [place] Eosinophils/100 WBC (Bld) 2.5 % Normal [facility] Comment on above: Order Comment: Speci men Type: BLOOD SPECIMEN Ordering Facility: [facility] Address: [address] [place] [address] Performed By: #### 5 7021-8 #### [facility] CLIA [id number] [address] [place] [address] [place] Erythrocyte distribution width (RBC) [Ratio] 12.9 % Normal 11.5-15.0 [facility] Comment on above: Order Comment: Speci men Type: BLOOD SPECIMEN Ordering Facility: [facility] Address: [address] [place] [address] Performed By: #### 5 7021-8 #### [facility] CLIA [id number] [address] [place] [address] [place] Hematocrit (Bld) [Volume fraction] 39.3 % Normal 36.0-46.0 [facility] Comment on above: Order Comment: Speci men Type: BLOOD SPECIMEN Ordering Facility: [facility] Address: [address] [place] [address] Performed By: #### 5 7021-8 #### [facility] CLIA [id number] [address] [place] [address] [place] Hemoglobin (Bld) [Mass/Vol] 12.7 g/dL Normal 11.5-15.5 [facility] Comment on above: Order Comment: Speci men Type: BLOOD SPECIMEN Ordering Facility: [facility] Address: [address] [place] [address] Performed By: #### 5 7021-8 #### [facility] CLIA [id number] [address] [place] [address] [place] Immature granulocytes (Bld) [#/Vol] 0.04 10*3/uL Normal <0.10 [facility] Comment on above: Order Comment: Speci men Type: BLOOD SPECIMEN Ordering Facility: [facility] Address: [address] [place] [address] Performed By: #### 5 7021-8 #### [facility] CLIA [id number] [address] [place] [address] [place] Immature granulocytes/100 WBC (Bld) 0.5 % Normal [facility] Comment on above: Order Comment: Speci men Type: BLOOD SPECIMEN Ordering Facility: [facility] Address: [address] [place] [address] Performed By: #### 5 7021-8 #### [facility] CLIA [id number] [address] [place] [address] [place] Lymphocytes (Bld) [#/Vol] 1.92 10*3/uL Normal 1.00-4.00 [facility] Comment on above: Order Comment: Speci men Type: BLOOD SPECIMEN Ordering Facility: [facility] Address: [address] [place] [address] Performed By: #### 5 7021-8 #### [facility] CLIA [id number] [address] [place] [address] [place] Lymphocytes/100 WBC (Bld) 25.6 % Normal [facility] Comment on above: Order Comment: Speci men Type: BLOOD SPECIMEN Ordering Facility: [facility] Address: [address] [place] [address] Performed By: #### 5 7021-8 #### [facility] CLIA [id number] [address] [place] [address] [place] MCH (RBC) [Entitic mass] 29.3 pg Normal 26.0-34.0 [facility] Comment on above: Order Comment: Speci men Type: BLOOD SPECIMEN Ordering Facility: [facility] Address: [address] [place] [address] Performed By: #### 5 7021-8 #### [facility] CLIA [id number] [address] [place] [address] [place] MCHC (RBC) [Mass/Vol] 32.3 g/dL Normal 30.5-36.0 [facility] Comment on above: Order Comment: Speci men Type: BLOOD SPECIMEN Ordering Facility: [facility] Address: [address] [place] [address] Performed By: #### 5 7021-8 #### [facility] CLIA [id number] [address] [place] [address] [place] MCV (RBC) [Entitic vol] 90.8 fL Normal 80.0-100.0 [facility] Comment on above: Order Comment: Speci men Type: BLOOD SPECIMEN Ordering Facility: [facility] Address: [address] [place] [address] Performed By: #### 5 7021-8 #### [facility] CLIA [id number] [address] [place] [address] [place] Monocytes (Bld) [#/Vol] 0.65 10*3/uL Normal <0.87 [facility] Comment on above: Order Comment: Speci men Type: BLOOD SPECIMEN Ordering Facility: [facility] Address: [address] [place], [place] [address] Performed By: #### 5 7021-8 #### [facility] CLIA [id number] [address] [place] [address] [place] Monocytes/100 WBC (Bld) 8.7 % Normal [facility] Comment on above: Order Comment: Speci men Type: BLOOD SPECIMEN Ordering Facility: [facility] Address: [address] [place] [address] Performed By: #### 5 7021-8 #### [facility] CLIA [id number] [address] [place] [address] [place] Neutrophils (Bld) [#/Vol] 4.65 10*3/uL Normal 1.45-7.50 [facility] Comment on above: Order Comment: Speci men Type: BLOOD SPECIMEN Ordering Facility: [facility] Address: [address] [place] [address] Performed By: #### 5 7021-8 #### [facility] CLIA [id number] [address] [place] [address] [place] Neutrophils/100 WBC (Bld) 62.2 % Normal [facility] Comment on above: Order Comment: Speci men Type: BLOOD SPECIMEN Ordering Facility: [facility] Address: [address] [place] [address] Performed By: #### 5 7021-8 #### [facility] CLIA [id number] [address] [place] [address] [place] Nucleated RBC (Bld) [#/Vol] 10*3/uL Normal <0.01 [facility] Comment on above: Order Comment: Speci men Type: BLOOD SPECIMEN Ordering Facility: [facility] Address: [address] [place] [address] Performed By: #### 5 7021-8 #### [facility] CLIA [id number] [address] [place] [address] [place] Nucleated RBC/100 WBC (Bld) [Ratio] 0.0 /100 WBC Normal [facility] Comment on above: Order Comment: Speci men Type: BLOOD SPECIMEN Ordering Facility: [facility] Address: [address] [place] [address] Performed By: #### 5 7021-8 #### [facility] CLIA [id number] [address] [place] [address] [place] Platelet mean volume (Bld) [Entitic vol] 13.3 fL High 9.0-12.7 [facility] Comment on above: Order Comment: Speci men Type: BLOOD SPECIMEN Ordering Facility: [facility] Address: [address] [place] [address] Performed By: #### 5 7021-8 #### [facility] CLIA [id number] [address] [place] [address] [place] Platelets (Bld) [#/Vol] 209 10*3/uL Normal 150-400 [facility] Comment on above: Order Comment: Speci men Type: BLOOD SPECIMEN Ordering Facility: [facility] Address: [address] [place] [address] Performed By: #### 5 7021-8 #### [facility] CLIA [id number] [address] [place] [address] [place] RBC (Bld) [#/Vol] 4.33 10*6/uL Normal 3.90-5.20 [facility] Comment on above: Order Comment: Speci men Type: BLOOD SPECIMEN Ordering Facility: [facility] Address: [address] [place] [address] Performed By: #### 5 7021-8 #### [facility] CLIA [id number] [address] [place] [address] [place] WBC (Bld) [#/Vol] 7.49 10*3/uL Normal 3.70-11.00 [facility] Comment on above: Order Comment: Speci men Type: BLOOD SPECIMEN Ordering Facility: [facility] Address: [address] [place] [address] Performed By: #### 5 7021-8 #### [facility] CLIA [id number] [address] [place] [address] [place] Comprehensive metabolic 2000 panelon 11-05-2024 Albumin [Mass/Vol] 4.3 g/dL Normal 3.9-4.9 [facility] Comment on above: Order Comment: Speci men Type: BLOOD SPECIMEN Ordering Facility: [facility] Address: [address] [place] [address] Performed By: #### 3 040-3, 23706-7, 94563-9 #### [facility] CLIA [id number] [address] [place] [address] [place] ALP [Catalytic activity/Vol] 123 U/L Normal 34-123 [facility] Comment on above: Order Comment: Speci men Type: BLOOD SPECIMEN Ordering Facility: [facility] Address: [address] [place] [address] Performed By: #### 3 040-3, 71152-9, 46367-7 #### [facility] CLIA [id number] [address] [place] [address] [place] ALT [Catalytic activity/Vol] 19 U/L Normal 7-38 [facility] Comment on above: Order Comment: Speci men Type: BLOOD SPECIMEN Ordering Facility: [facility] Address: [address] [place] [address] Performed By: #### 3 040-3, 06609-4, 91954-4 #### [facility] CLIA [id number] [address] [place] [address] [place] Anion gap [Moles/Vol] 11 mmol/L Normal 8-15 [facility] Comment on above: Order Comment: Speci men Type: BLOOD SPECIMEN Ordering Facility: [facility] Address: [address] [place] [address] Performed By: #### 3 040-3, 00095-7, 40699-9 #### [facility] CLIA [id number] [address] [place] [address] [place] AST [Catalytic activity/Vol] 20 U/L Normal 13-35 [facility] Comment on above: Order Comment: Speci men Type: BLOOD SPECIMEN Ordering Facility: [facility] Address: [address] [place] [address] Performed By: #### 3 040-3, 12962-9, #### [facility] CLIA [id number] [address] [place] [address] [place] Bilirubin [Mass/Vol] 0.5 mg/dL Normal 0.2-1.3 [facility] Comment on above: Order Comment: Speci men Type: BLOOD SPECIMEN Ordering Facility: [facility] Address: [address] [place] [address] Performed By: #### 3 040-3, 84338-9, #### [facility] CLIA [id number] [address] [place] [address] [place] Calcium [Mass/Vol] 9.9 mg/dL Normal 8.5-10.2 [facility] Comment on above: Order Comment: Speci men Type: BLOOD SPECIMEN Ordering Facility: [facility] Address: [address] [place] [address] Performed By: #### 3 040-3, 90118-5, #### [facility] CLIA [id number] [address] [place], [place] [address] [place] Chloride [Moles/Vol] 103 mmol/L Normal 98-107 [facility] Comment on above: Order Comment: Speci men Type: BLOOD SPECIMEN Ordering Facility: [facility] Address: [address] [place], [place] [address] Performed By: #### 3 040-3, 85466-7, 66552-7 #### [facility] CLIA [id number] [address] [place] [address] [place] CO2 [Moles/Vol] 24 mmol/L Normal 22-30 [facility] Comment on above: Order Comment: Speci men Type: BLOOD SPECIMEN Ordering Facility: [facility] Address: [address] [place] [address] Performed By: #### 3 040-3, 18496-9, #### [facility] CLIA [id number] [address] [place] [address] [place] Creatinine [Mass/Vol] 0.74 mg/dL Normal 0.58-0.96 [facility] Comment on above: Order Comment: Speci men Type: BLOOD SPECIMEN Ordering Facility: [facility] Address: [address] [place] [address] Performed By: #### 3 040-3, , #### [facility] CLIA [id number] [address] [place] [address] [place] Creatinine and Glomerular filtration rate.predicted panel (S/P/Bld) 80 mL/min/1.73m??? Normal >=60 [facility] Comment on above: Order Comment: Speci men Type: BLOOD SPECIMEN Ordering Facility: [facility] Address: [address] [place] [address] Result Comment: Kya mated Glomerular Filtration Rate (eGFR) is calculated using the 2020 CKD-EPI creatinine equation. This equation utilizes serum creatinine, sex, and age as parameters. The creatinine assay has traceable calibration to isotope dilution-mass spectrometry. Refer to KDIGO guidelines for clinical interpretation. In patients with unstable renal function, e.g. those with acute kidney injury, the eGFR may not accurately reflect actual GFR. Performed By: #### 3 040-3, 64797-1, #### [facility] CLIA [id number] [address] [place] [address] [place] Glucose [Mass/Vol] 316 mg/dL High 74-99 [facility] Comment on above: Order Comment: Specbertrand stinson Type: BLOOD SPECIMEN Ordering Facility: [facility] Address: [address] [place] [address] Result Comment: The [place] Diabetes Association (ADA) provides guidance for cutoff values for fasting glucose and random glucose. The ADA defines fasting as no caloric intake for at least 8 hours. Fasting plasma glucose results between 100 to 125 mg/dL indicate increased risk for diabetes (prediabetes). Fasting plasma glucose results greater than or equal to 126 mg/dL meet the criteria for diagnosis of diabetes. In the absence of unequivocal hyperglycemia, results should be confirmed by repeat testing. In a patient with classic symptoms of hyperglycemia or hyperglycemic crisis, random plasma glucose results greater than or equal to 200 mg/dL meet the criteria for diagnosis of diabetes. Reference: Standards of Medical Care in Diabetes 2016, [place] Diabetes Association. Diabetes Care. 2016.39(Suppl 1). Performed By: #### 3 040-3, 66179-2, 16917-7 #### [facility] CLIA [id number] [address] [place] [address] [place] Potassium [Moles/Vol] 4.4 mmol/L Normal 3.7-5.1 [facility] Comment on above: Order Comment: Dayron stinson Type: BLOOD SPECIMEN Ordering Facility: [facility] Address: [address] [place] [address] Performed By: #### 3 040-3, 66673-5, 77084-7 #### [facility] CLIA [id number] [address] [place] [address] [place] Protein [Mass/Vol] 7.3 g/dL Normal 6.3-8.0 [facility] Comment on above: Order Comment: Dayron stinson Type: BLOOD SPECIMEN Ordering Facility: [facility] Address: [address] [place] [address] Performed By: #### 3 040-3, 17913-4, 20176-2 #### [facility] CLIA [id number] [address] [place] [address] [place] Sodium [Moles/Vol] 138 mmol/L Normal 136-144 [facility] Comment on above: Order Comment: Dayron stinson Type: BLOOD SPECIMEN Ordering Facility: [facility] Address: [address] [place] [address] Performed By: #### 3 040-3, 08233-4, 66626-8 #### [facility] CLIA [id number] [address] [place] [address] [place] Urea nitrogen [Mass/Vol] 11 mg/dL Normal 7-21 [facility] Comment on above: Order Comment: Dayron stinson Type: BLOOD SPECIMEN Ordering Facility: [facility] Address: [address] [place] [address] Performed By: #### 3 040-3, 60687-2, 63973-6 #### [facility] CLIA [id number] [address] [place] [address] [place] HbA1c (Bld)on 11-05-2024 Average glucose Estimated from glycated hemoglobin (Bld) [Mass/Vol] 258 mg/dL Normal [facility] Comment on above: Order Comment: Dayron stinson Type: BLOOD SPECIMEN Ordering Facility: [facility] Address: [address] [place] [address] Result Comment: eAG: (Estimated average glucose) is a calculated value from HgbA1c and is business office representative of the average blood glucose level in the last 2-3 month period. Performed By: #### 5 7021-8 #### [facility] CLIA [id number] [address] [place] [address] [place] HbA1c (Bld) [Mass fraction] 10.6 % High 4.3-5.6 [facility] Comment on above: Order Comment: Dayron stinson Type: BLOOD SPECIMEN Ordering Facility: [facility] Address: [address] [place] [address] Result Comment: [place] Diabetes Association guidelines indicate that patients with HgbA1c in the range 5.7-6.4% are at increased risk for development of diabetes, and intervention by lifestyle modification may be beneficial. HgbA1c greater or equal to 6.5% is considered diagnostic of diabetes. Performed By: #### 5 7021-8 #### [facility] CLIA [id number] [address] [id number] [place] Lipase SerPl-cCncon 11-05-19 25 Lipase [Catalytic activity/Vol] 123 U/L High 16-61 [facility] Comment on above: Order Comment: Speci men Type: BLOOD SPECIMEN Ordering Facility: [facility] Address: [address] [place] [address] Performed By: #### 3 040-3, 97310-9, 42307-4 #### [facility] CLIA [id number] [address] [place] [address] [place] Lipid 1996 panelon 5 Cholesterol [Mass/Vol] 139 mg/dL Normal <200 [facility] Comment on above: Order Comment: Speci men Type: BLOOD SPECIMENOrdering Facility: [facility] Address: [address] [place] [address] Result Comment: <200 mg/dL, Desirable 200-239 mg/dL, Borderline high >239 mg/dL, High Performed By: #### 3 040-3, 18238-0, 20963-6 ####[facility] [id number] [address] [place] Cholesterol in HDL [Mass/Vol] 56 mg/dL Normal >39 [facility] Comment on above: Order Comment: Speci [facility] Type: BLOOD SPECIMENOrdering Facility: [facility] Address: [address] [place] [address] Result Comment: 40-5 9 mg/dL, Acceptable >59 mg/dL, High: Negative risk factor for coronary heart disease <40 mg/dL, Low: Positive risk factor for coronary heart disease Performed By: #### 3 040-3, 10661-9, 39207-8 ####[facility] [id number] [place] [address] [place] Cholesterol in LDL [Mass/Vol] 64 mg/dL Normal <100 [facility] Comment on above: Order Comment: Speci men Type: BLOOD SPECIMENOrdering Facility: [facility] Address: [address] [place] [address] Result Comment: <100 mg/dL, Optimal 100-129 mg/dL, Near optimal/above optimal 130-159 mg/dL, Borderline high 160-189 mg/dL, High >189 mg/dL, Very high Secondary prevention optimal LDL Cholesterol levels are recommended to be < 70 mg/dL Performed By: #### 3 040-3, 21476-3, 42941-1 ####[facility] [id number] [address] [place] Cholesterol in LDL/Cholesterol in HDL [Mass ratio] 1.14 {ratio} Normal <2.54 [facility] Comment on above: Order Comment: Speci men Type: BLOOD SPECIMENOrdering Facility: [facility] Address: [address] [place] [address] Result Comment: Refe nirmalace: 1. National Cholesterol Education Program ATP III Guideline At-A-Glance Quick Desk Reference: National Heart, Lung, and Blood [place]. National Institutes of Health. 2001: NIH Publication No. 01-3305. 2. An International Atherosclerosis Society position paper: global recommendations for the management of dyslipidemia: executive summary, Atherosclerosis. 2014: 232(2):410-413. Performed By: #### 3 040-3, 76067-9, 53061-0 ####[facility] [id number] [place] [address] [place] Cholesterol in VLDL [Mass/Vol] 19 mg/dL Normal <30 [facility] Comment on above: Order Comment: Speci men Type: BLOOD SPECIMENOrdering Facility: [facility] Address: [address] [place] [address] Performed By: #### 3 040-3, 97587-6, 60037-2 ####[facility] [id number] [place] [address] [place] Cholesterol non HDL [Mass/Vol] 83 mg/dL Normal <130 [facility] Comment on above: Order Comment: Speci men Type: BLOOD SPECIMENOrdering Facility: [facility] Address: [address] [place] [address] Result Comment: <130 mg/dL, Optimal 130-159 mg/dL, Near optimal/above optimal 160-189 mg/dL, Borderline high 190-219 mg/dL, High >219 mg/dL, Very high Secondary prevention optimal non HDL Cholesterol levels are recommended to be <100 mg/dL Performed By: #### 3 040-3, 97885-0, 26337-2 ####[facility] [id number] [place] [address] [place] Cholesterol.total/Chol esterol in HDL [Mass ratio] 2.48 {ratio} Normal <5.10 [facility] Comment on above: Order Comment: Speci men Type: BLOOD SPECIMENOrdering Facility: [facility] Address: [address] [place] [address] Performed By: #### 3 040-3, 15303-2, 90861-9 ####[facility] [id number] [place] [address] [place] FASTING TIME 12 hrs Normal [facility] Comment on above: Order Comment: Speci men Type: BLOOD SPECIMENOrdering Facility: [facility] Address: [address] [place] [address] Performed By: #### 3 040-3, 97279-6, 02352-7 ####[facility] [id number] [place] [address] [place] Triglyceride [Mass/Vol] 96 mg/dL Normal <150 [facility] Comment on above: Order Comment: Speci men Type: BLOOD SPECIMENOrdering Facility: [facility] Address: [address] [place] [address] Result Comment: <150 mg/dL, Normal 150-199 mg/dL, Borderline high 200-499 mg/dL, High >499 mg/dL, Very high Performed By: #### 3 040-3, 15377-3, 85072-6 ####[facility] [id number] [facility] [id number] [address] [place] XR CHEST 2V FRONTAL/LATon XR CHEST 2V FRONTAL/LAT * * *Final Report* * * DATE OF EXAM: Nov 05 2024 9:24AM WOX [id number] - XR CHEST 2V FRONTAL/LAT / PROCEDURE REASON: Hemoptysis * * * * Physician Interpretation * * * * EXAMINATION: CHEST RADIOGRAPH (2 VIEW FRONTAL and LATERAL) CLINICAL HISTORY: Hemoptysis MQ: XC2_6 EXAM DATE/TIME: 11/05/2024 9:24 AM COMPARISON: 06/06/2024 and 05/01/2024 RESULT: Lines, tubes, and devices: None. Lungs and pleura: No consolidation. No lung mass. No pleural effusion. No pneumothorax. Cardiomediastinal silhouette: Normal cardiomediastinal silhouette. Bones and soft tissues: Unremarkable. IMPRESSION: No acute radiographic abnormality. Supervisor Billposting: AMBER Transcribe Date/Time: Nov 05 2024 12:03P Dictated by : VELASQUEZ BENTON MD This examination was interpreted and the report reviewed and electronically signed by: VELASQUEZ BENTON MD on Nov 05 2024 12:05PM EST [id number] Normal [facility] XR Chest PA and Lateralon IMPRESSION: No acute radiographic abnormality. Supervisor Billposting: [facility] Transcribe Date/Time: Nov 05 2024 12:03P Dictated by : VELASQUEZ BENTON MD This examination was interpreted and the report reviewed and electronically signed by: VELASQUEZ BENTON MD on Nov 05 2024 12:05PM EST DIVISION OF RADIOLOGY * * *Final Report* * * DATE OF EXAM: Nov 05 2024 9:24AM WOX [id number] - XR CHEST 2V FRONTAL/LAT / PROCEDURE REASON: Hemoptysis * * * * Physician Interpretation * * * * EXAMINATION: CHEST RADIOGRAPH (2 VIEW FRONTAL & LATERAL) CLINICAL HISTORY: Hemoptysis MQ: XC2_6 EXAM DATE/TIME: 11/05/2024 9:24 AM COMPARISON: 06/06/2024 and 05/01/2024 RESULT: Lines, tubes, and devices: None. Lungs and pleura: No consolidation. No lung mass. No pleural effusion. No pneumothorax. Cardiomediastinal silhouette: Normal cardiomediastinal silhouette. Bones and soft tissues: Unremarkable. DIVISION OF RADIOLOGY Provider, Molly Chaka Duy - 11/05/2024 * * *Final Report* * * DATE OF EXAM: Nov 05 2024 9:24AM WOX [id number] - XR CHEST 2V FRONTAL/LAT / PROCEDURE REASON: Hemoptysis * * * * Physician Interpretation * * * * EXAMINATION: CHEST RADIOGRAPH (2 VIEW FRONTAL & LATERAL) CLINICAL HISTORY: Hemoptysis MQ: XC2_6 EXAM DATE/TIME: 11/05/2024 9:24 AM COMPARISON: 06/06/2024 and 05/01/2024 RESULT: Lines, tubes, and devices: None. Lungs and pleura: No consolidation. No lung mass. No pleural effusion. No pneumothorax. Cardiomediastinal silhouette: Normal cardiomediastinal silhouette. Bones and soft tissues: Unremarkable. IMPRESSION IMPRESSION: No acute radiographic abnormality. Supervisor [facility] Transcribe Date/Time: Nov 05 2024 12:03P Dictated by : VELASQUEZ BENTON MD This examination was interpreted and the report reviewed and electronically signed by: VELASQUEZ BENTON MD on Nov 05 2024 12:05PM [facility] Radiology Study observation (narrative) [facility] XR Chest PA and LateralOrder ed By: [facility] Provider on 11-05-2024 [facility] CNOVon 11-04-2024 CNOV Office Visit (FAMPWS ) -- TELMA TINEO ([id number]) 1940 F Date Time Provider Department 11/04/24 3:40 PM HENOK MARTINEZ FAMPWS During your visit today, we recorded the following information about you: Pulse Blood pressure Weight Height 81/minute 110/50 72.1 kg 1.499 m Henok Martinez MD 11/04/2024 3:49 PM Signed Patient presents with: 6 Month Exam HPI: Patient presents today for office visit for follow up. Mentions pains in her upper abdomen X 1 month. Radiates to both sides underneath her breasts. Pain is pretty constant and described as sharp. States she's been taking pepto-bismol daily. No relief. Having nausea. Difficult for her to eat. Eating sometimes makes pain worse. No vomiting. Some diarrhea. Denies any bloody or black stool. Continues on Protonix daily for GERD. Heartburn controlled. HTN: Does not monitor BP often Denies chest pain and shortness of breath Denies headaches and dizziness Denies palpitations and syncope Denies edema DM: A1c 10.0 6 months ago Due for another A1c Does not monitor her sugars at home Eats mostly rice, beans and meat. Lots of fruits and veggies. Following Cardiology. Continues on Eliquis. Had some numbness on her left side. Saw neurology. Ordered therapy on her neck. Is doing better. MEDICATIONS: Current Outpatient Medications Medication Sig cyclobenzaprine (FLEXERIL) 5 mg tablet Take 1 tablet by mouth two times a day as needed for muscle spasm. PEG 400-propylene glycol (SYSTANE ULTRA) 0.4-0.3 % ophthalmic solution Use 1 Drop in both eyes three times a day. Artificial Tear, Hypromellose, (SYSTANE GEL) 0.3 % gel Use 1 Drop in both eyes daily at bedtime. atorvastatin (LIPITOR) 20 mg tablet Take 1 tablet by mouth once daily. ELIQUIS 5 mg tab(s) Take 5 mg by mouth two times a day. pantoprazole DR (PROTONIX) 40 mg tablet Take 1 tablet by mouth once daily. benzocaine-menthol (CEPACOL) 15-2.6 mg lozg lozenge Take 1 Lozenge by mouth every 4 hours as needed for pain. fluticasone-vilanterol (BREO ELLIPTA) 100-25 mcg/dose inhaler Inhale 1 Inhalation as instructed once daily. Promethazine-DM (PHENERGAN-DM) 6.25-15 mg/5 mL syrup Take 5 mL by mouth four times a day as needed. metoprolol tartrate, short acting, (LOPRESSOR) 50 mg tablet Take 1.5 tablets by mouth two times a day. losartan (COZAAR) 100 mg tablet Take 1 tablet by mouth once daily. amLODIPine (NORVASC) 10 mg tablet Take 10 mg by mouth once daily. metFORMIN (GLUCOPHAGE) 500 mg tablet Take 2 tablets by mouth two times a day with meals. Blood Pressure Test Kit-Large (Mapidy ARM BP MONITOR) 1 Each once daily. Methylsulfonylmethane (MSM) 1,000 mg cap Take 1 capsule by mouth once daily. No current facility-administered medications for this visit. ALLERGIES: ALLERGIES Allergen Reactions Penicillins Anaphylaxis Tetracycline Rash Tramadol Intolerance Trembling PAST MEDICAL HISTORY Diagnosis Date Allergies Lundberg's palsy Bronchiectasis (HCC) Gastroesophageal reflux disease without esophagitis History of CVA (cerebrovascular accident) Mild intermittent asthma without complication Primary hypertension Type 2 diabetes mellitus without complication, without long-term current use of insulin (HCC) PAST SURGICAL HISTORY Procedure Laterality Date APPENDECTOMY CATARACT EXTRACTION HX COLONOSCOPY SCREENING 10/04/2022 no specimens collected, No further screening colonoscopies required HEMORRHOIDECTOMY HYSTERECTOMY HX without bso PAST SURGICAL HISTORY OF ? repair of cystocele RHINOPLASTY N/A TONSILLECTOMY AND ADENOIDECTOMY FAMILY HISTORY Problem Relation Age of Onset Lung Cancer Father Pancreatic Cancer Mother Heart disease Son No Ocular Disease No Family History Social History Tobacco Use Smoking status: Former Smokeless tobacco: Never Tobacco comments: Light smoker for 7 years in early adulthood Vaping Use Vaping status: Never Used Substance Use Topics Alcohol use: Not Currently Drug use: Never Reviewed current medications, allergies, past medical history, surgical history, family history and social history today. REVIEW OF SYSTEMS On follow up has noted some hemoptysis since ill in April. No fever or chills. All other reviewed and negative other than HPI. HEALTH MAINTENANCE: Reviewed health maintenance issues today and recommended the following in detail. HbA1C due on 08/01/2024 Urine Albumin:Creatinine Ratio due on 09/17/2024 LDL Cholesterol due on 09/17/2024 Advance Directive Discussion due on 10/28/2024 VITALS: BP 110/50 Pulse 81 Ht 149.9 cm (4' 11) Wt 72.1 kg (159 lb) SpO2 98% BMI 32.11 kg/m? Last 4 Encounter Wt Readings: Date: Wt: 10/13/2024 73.5 kg (162 lb) 07/01/2024 73.5 kg (162 lb) 06/05/2024 73.5 kg (162 lb) 05/01/2024 75.3 kg (166 lb) PHYSICAL EXAMINATION: General appearanc (more content not included)... Normal [facility] CNOVon 10-13-2024 CNOV Office Visit (FAMPWS ) -- TELMA TINEO ([id number]) 1940 F Date Time Provider Department 10/13/24 2:40 PM [facility] During your visit today, we recorded the following information about you: Temperature Pulse Respiration Blood pressure 99.3 degrees 67/minute 16/minute 124/68 Weight 73.5 kg Virginia Reina, LEAD [employer]AVA SOFTWARE ENGINEER.POLE INCISOR OPERATOR 10/13/2024 3:06 PM Signed This is a 84 year old female who presents today with: Patient presents with: Acute Visit: Productive cough for 4 days. Short of breath. Left ear pain, headache. HISTORY OF PRESENT ILLNESS: Telma Tineo is a 84 year old female. Patient presents with: Acute Visit: Productive cough for 4 days. Short of breath. Left ear pain, headache. Started with cough, head and chest congestion and chills on Saturday. Tussin not helping. A lot of productive phlegm. Yellow. No N/V Some body aches. + Headache. Daughter noticed some wheezing For months, food gets caught in throat PAST MEDICAL HISTORY: PAST MEDICAL HISTORY Diagnosis Date Allergies Lundberg's palsy Bronchiectasis (HCC) Gastroesophageal reflux disease without esophagitis History of CVA (cerebrovascular accident) Mild intermittent asthma without complication Primary hypertension Type 2 diabetes mellitus without complication, without long-term current use of insulin (HCC) PAST SURGICAL HISTORY Procedure Laterality Date APPENDECTOMY CATARACT EXTRACTION HX COLONOSCOPY SCREENING 10/04/2022 no specimens collected, No further screening colonoscopies required HEMORRHOIDECTOMY HYSTERECTOMY HX without bso PAST SURGICAL HISTORY OF ? repair of cystocele RHINOPLASTY N/A TONSILLECTOMY AND ADENOIDECTOMY ALLERGIES Penicillins, Tetracycline, and Tramadol MEDICATIONS Current Outpatient Medications Medication Sig cyclobenzaprine (FLEXERIL) 5 mg tablet Take 1 tablet by mouth two times a day as needed for muscle spasm. PEG 400-propylene glycol (SYSTANE ULTRA) 0.4-0.3 % ophthalmic solution Use 1 Drop in both eyes three times a day. Artificial Tear, Hypromellose, (SYSTANE GEL) 0.3 % gel Use 1 Drop in both eyes daily at bedtime. atorvastatin (LIPITOR) 20 mg tablet Take 1 tablet by mouth once daily. ELIQUIS 5 mg tab(s) Take 5 mg by mouth two times a day. pantoprazole DR (PROTONIX) 40 mg tablet Take 1 tablet by mouth once daily. benzocaine-menthol (CEPACOL) 15-2.6 mg lozg lozenge Take 1 Lozenge by mouth every 4 hours as needed for pain. fluticasone-vilanterol (BREO ELLIPTA) 100-25 mcg/dose inhaler Inhale 1 Inhalation as instructed once daily. Promethazine-DM (PHENERGAN-DM) 6.25-15 mg/5 mL syrup Take 5 mL by mouth four times a day as needed. metoprolol tartrate, short acting, (LOPRESSOR) 50 mg tablet Take 1.5 tablets by mouth two times a day. losartan (COZAAR) 100 mg tablet Take 1 tablet by mouth once daily. amLODIPine (NORVASC) 10 mg tablet Take 10 mg by mouth once daily. metFORMIN (GLUCOPHAGE) 500 mg tablet Take 2 tablets by mouth two times a day with meals. Blood Pressure Test Kit-Large (Mapidy ARM BP MONITOR) 1 Each once daily. Methylsulfonylmethane (MSM) 1,000 mg cap Take 1 capsule by mouth once daily. No current facility-administered medications for this visit. FAMILY HISTORY Problem Relation Age of Onset Lung Cancer Father Pancreatic Cancer Mother Heart disease Son No Ocular Disease No Family History Social History Tobacco Use Smoking status: Former Smokeless tobacco: Never Tobacco comments: Light smoker for 7 years in early adulthood Vaping Use Vaping status: Never Used Substance Use Topics Alcohol use: Not Currently Drug use: Never EXAM: BP 124/68 Pulse 67 Temp 37.4 ?C (99.3 ?F) (Right Tympanic) Resp 16 Wt 73.5 kg (162 lb) SpO2 97% BMI 32.72 kg/m? PHYSICAL EXAM: Physical Exam Vitals reviewed. Constitutional: Appearance: Normal appearance. HENT: Head: Normocephalic. Right Ear: Tympanic membrane, ear canal and external ear normal. There is no impacted cerumen. Left Ear: Tympanic membrane, ear canal and external ear normal. There is no impacted cerumen. Nose: No congestion or rhinorrhea. Mouth/Throat: Mouth: Mucous membranes are moist. Pharynx: Oropharynx is clear. No oropharyngeal exudate or posterior oropharyngeal erythema. Cardiovascular: Rate and Rhythm: Normal rate and regular rhythm. Pulses: Normal pulses. Heart sounds: Normal heart sounds. Pulmonary: Effort: Pulmonary effort is normal. Breath sounds: Normal breath sounds. Comments: Positive egophony bronchial Abdominal: Palpations: Abdomen is soft. Musculoskeletal: General: Normal range of motion. Comments: Moves all ext. And walks w/o assistive device Skin: General: Skin is warm and dry. Neurological: Mental Status: She is alert and oriented to person, place, and time. LABS: ASSESSMENT/PLAN: 1. Acute bronchitis, unsp (more content not included)... Normal [facility] PT D/C Summary (1)on 024 PT D/C Summary (1) [facility] Physical Therapy Health[address] [place] [address] / REHABILITATION SERVICES DISCHARGE SUMMARY MR#: [id number] Acct: [id number] Name: TELMA TINEO Rep #: [id number] : 1940 84 From: Zeke Miguel PT, Cert. T, [facility] Referring Dr.: Dr. Henok Martinez MD Status: REG RCR Insurance: [employer] HMO [employer] COMMUNITY PLAN Discharge Summary D/C summary: It has been my pleasure to treat TELMA TINEO referred by Dr. Henok Martinez MD, with the diagnosis of CERVICAL RADICULOPATHY for a total of 17 visit(s). Discharge Date: Please see the following information for a summary of their discharge status. Subjective Subjective: Patient is happy with ROM , Sleeping better , Doing good able to ADL and houseworks tasks Pain Left: Pain Intensity (Out of 10): 0 Overall Improvement % Improvement: 90 Objective Objective/Function: POSTURE:rounded shoulder head forward PALAPTION: tender UT/levator/scalenes left > right NEURO: denies paresthesia/tingling ,reflexes C5-6-7 1/3 CERVICAL ROM: flexion WFL ,extension WFL loss ,min ,mod loss right ,left ,lateral flexion mod loss right ,left Goals Goal 1:: Patient to be I with HEP for cervical Goal Progress: Progressing Goal 2:: Patient to improve cervical ROM for function of recovery for ADLS Goal Progress: Goal Met Goal 3:: Patient to improve neck oswestry score by 5 points to improve QOL and function( new goal) Goal Progress: Goal Met Goal 4:: Patient to demonstrate 80% improvement with less cervical pain to improve function.( new goal) Goal Progress: Goal Met Plan Plan: D/C TO HEP D/C Information d/c sentence: If there are questions or concerns regarding this patient's physical therapy, please feel free to call me at [phone]. Thank you for the referral of this patient. Sincerely, Zeke Miguel PT, Cert MDT, OCS Balance/Gait/Functional tests Balance/Special Test Scores Oswestry Neck Score: 23 Improvement % Improvement: 90 09/17/24 1713 CC: Dr. Henok Martinez MD JLA Signed Normal [facility] Inital Evaluation (1) - PTon 07-16-2024 Inital Evaluation (1) - PT [facility] Physical Therapy [address] [place] [address] / REHABILITATION SERVICES INITIAL EVALUATION MR#: [id number] Acct: [id number] Name: TELMA TINEO Rep #: [id number] : 1940 84 From: Zeke Miguel PT, Cert. T, OCS Referring Dr.: Dr. Henok Martinez MD Status: REG RCR Insurance: MEDICARE PART A B [employer] COMMUNITY PLAN Patient's Visit Information Visit Information Visit Information: TELMA TINEO is a 84 year old F referred to Physical Therapy by Dr. Henok Martinez MD with a diagnosis of CERVICAL RADICULOPATHY. Date of Evaluation: 07/16/24 Physical Therapist: Zeke Miguel, PT, Cert MDT, OCS Visit Plan Frequency: 2x /Week Duration: 4 Weeks Plan: PT INTERVENTIONS MANUAL THERAPY ST/CERVICAL TRACTION , US/CP/MHP ,CERVICAL ROM AVOID TO LEFT AND POSTURAL EX'S Subjective Subjective: This 84 y/o female presents to physical therapy with cervical radiculopathy. Patient has had cervical pain Jun 2024 . Patient has had episode cervical pain had to go to ER . Patient had CT scan showed DDD. Patient saw neurologist tried cortisone. Family DR prescribed muscle relaxer. Pain located more on left side . Aggravating turning to left > right. Pain affects sleeping difficulty laying down. Alleviating factors heat and ice. Denies paresthesia/tingling-. Denies PETERS/nausea/tinnitus /dizziness. Patient pain affects sleeping. Patient initially has some radicular symptoms . Patient condition affects QOL and function. Patient goals decrease pain. SOCIAL: lives alone Pain Left: Pain Intensity (Out of 10): 5 Pain Intensity Range: 10 Objective Objective: POSTURE:rounded shoulder head forward PALAPTION: tender UT/levator/scalenes left > right NEURO: denies paresthesia/tingling ,reflexes C5-6-7 1/3 CERVICAL ROM: flexion min loss ,extension mod/severe loss ,mod loss right ,left mod /severe loss ,lateral flexion mod loss right ,left mod /severe left pain towards left Balance/Special Test Scores Oswestry Neck Score: 34 Goals Goal 1:: Patient to be I with HEP for cervical Goal Time Frame: 4-6 Weeks Goal 2:: Patient to improve cervical ROM for function of recovery for ADLS Goal Time Frame: 4-6 Weeks Goal 3:: Patient to improve neck oswestry score by 5 points to improve QOL and function Goal Time Frame: 4-6 Weeks Goal 4:: Patient to demonstrate 40% improvement with less cervical pain to improve function. Goal Time Frame: 4-6 Weeks Rehabilitation Potential Physical Therapy Diagnosis: This patient has cervical radiculopathy with possible stenosis foraminal with pain with position and motion testing pain worse to left thus benefit from skilled PT Rehabilitation Potential: Good Anticipated Interventions Patient/Client Instruction: Educate patient on: Condition and Risk Factors For the Purpose of:: To decrease pain, To increase ROM, To improve muscle performance and motor function, To improve ability to perform ADL's, To increase tolerance to activity/condition/positio n, To improve ability of physical actions for home/community/work/leisur e, To improve health of tissue, To decrease soft tissue restriction, To increase flexibility/ROM, To improve endurance, To improve balance, To reduce risk of recurrence and To improve tolerance to ADL's Therapeutic Exercise to Include: Strength training, Postural training, Flexibilty training and Active ROM For the Purpose of:: To decrease pain, To increase ROM, To improve nutrient delivery to tissue, To increase oxygenation perfusion, To improve ability to perform ADL's, To improve ability of physical actions for home/community/work/leisur e, To improve health of tissue, To decrease soft tissue restriction and To increase flexibility/ROM Manual Therapy Techniques to Include: Mobilization and Soft tissue mobilization For the Purpose of:: To decrease pain, To increase ROM, To improve nutrient delivery to tissue, To increase oxygenation perfusion, To improve health of tissue and To decrease soft tissue restriction TENS: Yes IF ES: Yes Cryotherapy (ice pack, ice massage): Yes Thermo therapy (hot pack): Yes Ultrasound (thermal/non thermal): Yes For the Purpose of:: To decrease pain, To increase ROM, To improve nutrient delivery to tissue, To increase oxygenation perfusion, To improve health of tissue and To decrease soft tissue restriction Text: Thank you for the opportunity to evaluate your patient. For Medicare and Medicare HMO plans, please review the plan of care and approve it. It will need to be FAXED BACK to us at [phone] for Medicare purposes. For Medicare only, by signing this I certify the plan of care. Please let me know if there are questions or concerns regarding this plan of care. Physician Signature: Date: 07/17 (more content not included)... Normal [facility] Neurology Visit Reporton Neurology Visit Report [facility] [address], [address] [place] [address] OFFICE VISIT Date of Service: 07/09/24 MR#: [id number] Acct: [id number] Name: TELMA TINEO Rep #: [id number] : 1940 Provider: Dr. Jatinder arrieta MD Age/Sex: 84/F [place] [facility] [place] Status: Signed HPI HPI Chief Complaint: Details: Interim history: Telma returns for follow-up visit. She has a history of hypertension, asthma, diet-controlled diabetes mellitus, gastroesophageal reflux disease, and TIA. In March 2021, she had an episode of acute onset expressive aphasia. Her speech was noted to be as gibberish; she had some preserved comprehension. On presentation to the emergency room, she was noted to have a marked elevated blood pressure (212/107 mmHg). Her speech began to improve over the following hours. She did not pursue speech therapy. She has subsequently had significant improvement of her speech, and is now near baseline. She has some word finding difficulty however she is able to communicate adequately. The episode in March 2021 was felt to be a TIA. No acute intracranial abnormality was noted on her head MRI. Her head MRI did reveal minimal small vessel ischemic disease and mild age-related diffuse atrophy. In the days prior to her TIA, she had experienced palpitations. She had a left-sided headache at the time of her TIA, and this lasted for several days following the onset of her speech symptoms, then subsided. She has mild pressure type headaches for which she has taken acetaminophen and this was effective. She does not have history of stroke prior to March 2021. She was started on aspirin 81 mg daily following her TIA in March 2021. A head and neck CTA were normal. A cardiac echo (transesophageal and transthoracic) revealed a right atrial mass; bubble study was negative. An EKG revealed normal sinus rhythm. 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 Following the addition of Eliquis in April 2021, she had a brief period of bright red blood per rectum as well as what appeared to be melena. Aspirin was then discontinued. A stool guaiac to assess for occult blood (07/24/2021) was negative. She takes pantoprazole for gastroesophageal reflux disease. She previously took amlodipine and clonidine for hypertension. She takes metoprolol. She takes atorvastatin for hyperlipidemia. She has mild cognitive impairment and often has trouble with word-finding. Her Mini-Mental status exam was 25/30 on 06/19/2021, 29/30 in January 2022 and 26/30 in May 2023. She speaks Slovak as her tejon language, and Martiniquais as her second language. She was previously prescribed baclofen for neck pain; her neck pain had subsided and she discontinued baclofen. She reports recurrence of neck pain that radiates to the occipital head region and left upper back/shoulder region. The recurrence of her neck pain began in May 2024. She is unaware of any clear precipitating event. Tramadol was prescribed and caused a side effect of palpitations and this medication was discontinued. Multilevel degenerative joint changes are noted on her cervical spine CT (May 2024). Mild diffuse cerebral atrophy and mild bilateral periventricular chronic small vessel ischemic disease is noted on her head CT (May 2024). She is taking cyclobenzaprine 5 mg twice daily as needed and this is of some benefit however her pain remains prominent. She had 3 emergency room presentations in March 2023 for marked hypertension (systolic blood pressure greater than 200). In 2022, she had an episode of word finding difficulty and blurred vision in association with marked elevation of her blood pressure (systolic blood pressure greater than 200). She was seen by her eye doctor and apparently cataracts were identified. She did not have numbness or weakness with the episode. Physical Exam: Neuro: The patient is awake; she is slightly bradyphrenic; Mini-Mental status exam score is 28/30; no dysarthria is noted Heart: Irregularly irregular Neck: No bruits; tenderness is noted over the left mid cervical paraspinal muscles Supplemental Info Head CT (04/19/2021): FINDINGS: The ventricular system and cerebral sulci are within normal limits. There is no dense MCA sign. There is minimal calcification in the left basal ganglia. There is no evidence of subdural, epidural or intraparenchymal israel hemorrhage noted. The skull base and cranial vault are intact. But if clinically stroke is suspected I do recommend diffusion MRI for further assessment IMPRESSION: Negative unenhanced CT scan of the brain. If stroke is suspected diffusion MRI is needed. These images were reviewed by Dr. Khan on 06/19/2021. Mild diffuse cerebral atrophy is noted. Head CTA/neck CTA (04/19/2021): Normal CTA head and neck with contrast. These images were r (more content not included)... Normal [facility] CNOVon 07-01-2024 CNOV Office Visit (FAMPWS ) -- TELMA TINEO ([id number]) 1940 F Date Time Provider Department 07/01/24 3:40 PM HENOK MARTINEZ [facility] During your visit today, we recorded the following information about you: Pulse Blood pressure Weight Height 76/minute 124/56 73.5 kg 1.499 m Henok Martinez MD 07/01/2024 5:10 PM Signed Patient presents with: ER F/U HPI: Patient presents today for office visit for HOSPITAL/ER FOLLOW UP: Reason for visit: Multiple somatic complaints ranging from left side of head and face, left side of neck and left arm pain with chest pain. Which facility: [facility] Date of visit: 06/25/24 Diagnosis: Cervical radiculopathy Testing done: EKG showed atrial fibrillation without acute ST changes. Labs negative. CT brain showed no acute process. DJD shown on CT cervical spine. CXR normal. Treatment given: Given morphine and zofran while in ER. Sent home with Tramadol. Current symptoms: Still with left sided neck pain and into left shoulder blade. No longer taking the Tramadol due to contraindications with her other meds. Caused some side effects when taken together. Did take an ibuprofen. Advised to avoid while on eliquis. Worse with movement. Did go into her arm and hand. Is more in the shoulder blade. No trauma. Her chest feels well. MEDICATIONS: Current Outpatient Medications Medication Sig PEG 400-propylene glycol (SYSTANE ULTRA) 0.4-0.3 % ophthalmic solution Use 1 Drop in both eyes three times a day. Artificial Tear, Hypromellose, (SYSTANE GEL) 0.3 % gel Use 1 Drop in both eyes daily at bedtime. atorvastatin (LIPITOR) 20 mg tablet Take 1 tablet by mouth once daily. ELIQUIS 5 mg tab(s) Take 5 mg by mouth two times a day. pantoprazole DR (PROTONIX) 40 mg tablet Take 1 tablet by mouth once daily. benzocaine-menthol (CEPACOL) 15-2.6 mg lozg lozenge Take 1 Lozenge by mouth every 4 hours as needed for pain. fluticasone-vilanterol (BREO ELLIPTA) 100-25 mcg/dose inhaler Inhale 1 Inhalation as instructed once daily. Promethazine-DM (PHENERGAN-DM) 6.25-15 mg/5 mL syrup Take 5 mL by mouth four times a day as needed. metoprolol tartrate, short acting, (LOPRESSOR) 50 mg tablet Take 1.5 tablets by mouth two times a day. losartan (COZAAR) 100 mg tablet Take 1 tablet by mouth once daily. amLODIPine (NORVASC) 10 mg tablet Take 10 mg by mouth once daily. metFORMIN (GLUCOPHAGE) 500 mg tablet Take 2 tablets by mouth two times a day with meals. Blood Pressure Test Kit-Large (Mapidy ARM BP MONITOR) 1 Each once daily. Methylsulfonylmethane (MSM) 1,000 mg cap Take 1 capsule by mouth once daily. No current facility-administered medications for this visit. ALLERGIES: ALLERGIES Allergen Reactions Penicillins Anaphylaxis Tetracycline Rash PAST MEDICAL HISTORY No date: Allergies No date: Lundberg's palsy No date: Bronchiectasis (HCC) No date: Gastroesophageal reflux disease without esophagitis No date: History of CVA (cerebrovascular accident) No date: Mild intermittent asthma without complication No date: Primary hypertension No date: Type 2 diabetes mellitus without complication, without long- term current use of insulin (HCC) PAST SURGICAL HISTORY No date: APPENDECTOMY No date: CATARACT EXTRACTION HX 10/04/2022: COLONOSCOPY SCREENING Comment: no specimens collected, No further screening colonoscopies required No date: HEMORRHOIDECTOMY No date: HYSTERECTOMY HX Comment: without bso No date: PAST SURGICAL HISTORY OF Comment: ? repair of cystocele No date: RHINOPLASTY; N/A No date: TONSILLECTOMY AND ADENOIDECTOMY FAMILY HISTORY Problem Relation Age of Onset Lung Cancer Father Pancreatic Cancer Mother Heart disease Son No Ocular Disease No Family History Social History Tobacco Use Smoking status: Former Smokeless tobacco: Never Tobacco comments: Light smoker for 7 years in early adulthood Vaping Use Vaping status: Never Used Substance Use Topics Alcohol use: Not Currently Drug use: Never Reviewed current medications, allergies, past medical history, surgical history, family history and social history today. REVIEW OF SYSTEMS All other reviewed and negative other than HPI. HEALTH MAINTENANCE: Reviewed health maintenance issues today and recommended the following in detail. DTaP,Tdap,Td Vaccine(1 - Tdap) Never done Shingrix Vaccine(1 of 2) Never done Covid-19 Vaccine(3 - season) due on 06/28/2024 Influenza Vaccine(1) due on 06/28/2024 VITALS: BP 124/56 Pulse 76 Ht 149.9 cm (4' 11) Wt 73.5 kg (162 lb) SpO2 99% BMI 32.72 kg/m? Last 4 Encounter Wt Readings: Date: Wt: 06/05/2024 73.5 kg (162 lb) 05/01/2024 75.3 kg (166 lb) 03/04/2024 69.9 kg (154 lb) 02/19/2024 74.4 kg (164 lb 0.4 oz) PHYSICAL EXAMINATION: General appearance: Well appearing, alert, in no acute distress, well-hydrated, well nourished. Skin (more content not included)... Normal [facility] 12 Lead EKGon 06-25-2024 12 Lead EKG [facility] Cardiovascular Services [address] [place] [address] 12 Lead EKG 06/25/24 1529 MR#: [id number] Acct: [id number] Name: TELMA TINEO Rep #: [id number] : 1940 84 From: Bela Mckeon MD Attending Dr: Status: DEP ER Ordering Dr: Guille Garnica MD Date: 06/25/24 Location: ED Sex: F H Admitted: Test Reason : Blood Pressure : / mmHG Vent. Rate : 069 BPM Atrial Rate : 000 BPM P-R Int : 000 ms QRS Dur : 082 ms QT Int : 376 ms P-R-T Axes : 000 -06 096 degrees QTc Int : [address] T wave abnormality, consider anterolateral ischemia Abnormal ECG Confirmed by Bela Mckeon ([id number]), commercial production editor CALROS HARRIS ([id number]) on 06/26/2024 8:19:14 AM Referred By: Confirmed By:Bela Mckeon 06/26/24818 Date Bela Mckeon MD CC: Dr. Guille Garnica MD; Dr. Henok Martinez MD Signed Normal [facility] Basic Metabolic Profile (BMP )on 06-25-2024 BUN/CRE 19.6 RATIO Normal 10-20 [facility] Comment on above: Order Comment: 1 Y Performed By: #### L 501.5425, L500.2500, L100.0100 #### [facility] [address] [place], [address] CA,Total 9.6 mg/dL Normal 8.5-10.1 [facility] Comment on above: Order Comment: 1 Y Performed By: #### L 501.5425, L500.2500, L100.0100 #### [facility] [address] [place], [address] Chloride [Moles/Vol] 106 mmol/L Normal 98-107 [facility] Comment on above: Order Comment: 1 Y Performed By: #### L 501.5425, L500.2500, L100.0100 #### [facility] [address] [place], [address] CO2 [Moles/Vol] 24.0 mmol/L Normal 21.0-32.0 [facility] Comment on above: Order Comment: 1 Y Performed By: #### L 501.5425, L500.2500, L100.0100 #### [facility] [address] [place], [address] Creatinine [Mass/Vol] 0.87 mg/dL Normal 0.55-1.02 [facility] Comment on above: Order Comment: 1 Y Result Comment: The validity of the calculated GFR GFRAA in patients over 70 years has not been determined. Clinical correlation is essential. Performed By: #### L 501.5425, L500.2500, L100.0100 #### [facility] [address] [place], [address] ECRCL 43.36 ml/min Normal [facility] Comment on above: Order Comment: 1 Y Performed By: #### L 501.5425, L500.2500, L100.0100 #### [facility] [address] [place], [address] EST GFR - AA 80 mL/min Normal >60 [facility] Comment on above: Order Comment: 1 Y Result Comment: Afri can [place] GFR Calc Performed By: #### L 501.5425, L500.2500, L100.0100 #### [facility] [address] [place], [address] GAP 6 Normal 5-15 [facility] Comment on above: Order Comment: 1 Y Performed By: #### L 501.5425, L500.2500, L100.0100 #### [facility] [address] [place], [address] GFR/1.73 sq M.predicted among non-blacks MDRD (S/P/Bld) [Vol rate/Area] 66 mL/min/{1.73_m2} Normal >60 [facility] Comment on above: Order Comment: 1 Y Result Comment: Non- GFR Calc Performed By: #### L 501.5425, L500.2500, L100.0100 #### [facility] [address] [place], [address] Glucose [Mass/Vol] 273 mg/dL High 74-106 [facility] Comment on above: Order Comment: 1 Y Result Comment: Gluc ose result greater than or equal to 200 mg/dL suggests DIABETES MELLITUS per A.D.A. criteria. Performed By: #### L 501.5425, L500.2500, L100.0100 #### [facility] [address] [place], [address] Potassium [Moles/Vol] 4.7 mmol/L Normal 3.5-5.1 [facility] Comment on above: Order Comment: 1 Y Performed By: #### L 501.5425, L500.2500, L100.0100 #### [facility] [address] [place], [address] Sodium [Moles/Vol] 136 mmol/L Normal 136-145 [facility] Comment on above: Order Comment: 1 Y Performed By: #### L 501.5425, L500.2500, L100.0100 #### [facility] [address] [place], [address] Urea nitrogen [Mass/Vol] 17 mg/dL Normal 7-18 [facility] Comment on above: Order Comment: 1 Y Performed By: #### L 501.5425, L500.2500, L100.0100 #### [facility] [address] [place], [address] Brain/Head without Contrasto n 06-25-2024 Brain/Head without Contrast [facility] Imaging Services [address] [place] [address] Brain/Head without Contrast MR#: [id number] Acct: [id number] Name: TELMA TINEO Rep #: [id number] : 1940 F 84 From: Drew Walter DO PCP: Dr. Henok Matrinez MD Status: REG ER Study: Brain/Head without Contrast Date of Exam: 05/29 07/21 Exam# [id number] Ordering Dr: Guille Garnica MD [id number] STUDY: CT BRAIN WITHOUT CONTRAST REASON FOR EXAM: Female, 84 years old. headache RADIATION DOSAGE (If Supplied By Facility): CTDIvol = ( 44.99 ) mGy, DLP = ( 779.24 ) mGycm TECHNIQUE: Transaxial CT imaging of the brain was performed without administration of intravenous contrast material. Individualized dose optimization techniques were used for this CT. COMPARISON: No relevant priors. FINDINGS: Normal soft tissue structures. Normal calvarium. Normal size ventricles and extra-axial spaces for the patient''s age. Normal white matter tracts of the cerebral hemispheres. Normal basal ganglia and thalami. Normal brainstem. Normal cerebellum. There is no intracranial hemorrhage. There are no findings of an acute ischemic infarction. Normal visualized paranasal sinuses. CT/Brain/Head without Contrast IMPRESSION: Normal unenhanced CT scan of the brain. Electronically Signed: Drew Walter DO at 16:26 EDT Reading Location ID and State: [facility] / [place] Tel [phone], Service support , CC: Dr. Guille Garnica MD; Dr. Henok Martinez MD Supervisor Billposting: Signed Normal [facility] CBC W/Diff, Automatedon 08-2 Absolute Lymph 1.29 X10 3/uL Normal 0.83-4.51 [facility] Comment on above: Performed By: #### L 501.5425, L500.2500, L100.0100 #### [facility] [address] [place], [place], [id number] Absolute Neut 7.1 X10 3/uL Normal 2.0-7.7 [facility] Comment on above: Performed By: #### L 501.5425, L500.2500, L100.0100 #### [facility] [address] [place], [address] Basophils/100 WBC (Bld) 0.3 % Normal 0-1 [facility] Comment on above: Performed By: #### L 501.5425, L500.2500, L100.0100 #### [facility] [address] [place], [address] Eosinophils/100 WBC (Bld) 1.4 % Normal 0-5 [facility] Comment on above: Performed By: #### L 501.5425, L500.2500, L100.0100 #### [facility] [address] [place], [address] Erythrocyte distribution width (RBC) [Ratio] 13.2 % Normal 11.6-14.6 [facility] Comment on above: Performed By: #### L 501.5425, L500.2500, L100.0100 #### [facility] [address] [place], [address] Hematocrit (Bld) [Volume fraction] 35.4 % Low 37-47 [facility] Comment on above: Performed By: #### L 501.5425, L500.2500, L100.0100 #### [facility] [address] [place], [address] Hemoglobin (Bld) [Mass/Vol] 11.4 g/dL Low 12.0-15.0 [facility] Comment on above: Performed By: #### L 501.5425, L500.2500, L100.0100 #### [facility] [address] [place], [address] IG% 0.300 Normal 0.0-0.9 [facility] Comment on above: Result Comment: IG% - Immature Granulocytes (promyelocytes, myelocytes and metamyelocytes) > 1% indicates that a LEFT SHIFT is Present. Performed By: #### L 501.5425, L500.2500, L100.0100 #### [facility] [address] [place], [address] Lymphocytes/100 WBC (Bld) 13.5 % Low 19-41 [facility] Comment on above: Performed By: #### L 501.5425, L500.2500, L100.0100 #### [facility] [address] [place], [address] MCH (RBC) [Entitic mass] 29.4 pg Normal 27.0-32.0 [facility] Comment on above: Performed By: #### L 501.5425, L500.2500, L100.0100 #### [facility] [address] [place], [address] MCHC (RBC) [Mass/Vol] 32.2 g/dL Normal 32-36 [facility] Comment on above: Performed By: #### L 501.5425, L500.2500, L100.0100 #### [facility] [address] [place], [address] MCV (RBC) [Entitic vol] 91.2 fL Normal 81-99 [facility] Comment on above: Performed By: #### L 501.5425, L500.2500, L100.0100 #### [facility] [address] [place], [address] Monocytes/100 WBC (Bld) 10.5 % High 0-10 [facility] Comment on above: Performed By: #### L 501.5425, L500.2500, L100.0100 #### [facility] [address] [place], [address] Neutrophils/100 WBC (Bld) 74.0 % High 47-70 [facility] Comment on above: Performed By: #### L 501.5425, L500.2500, L100.0100 #### [facility] [address] [place], [address] Nucleated RBC (Bld) [#/Vol] 0 10*3/uL Normal 0-5 [facility] Comment on above: Performed By: #### L 501.5425, L500.2500, L100.0100 #### [facility] [address] [place], [address] Platelet mean volume (Bld) [Entitic vol] 12.3 fL High 6.2-12.0 [facility] Comment on above: Performed By: #### L 501.5425, L500.2500, L100.0100 #### [facility] [address] [place], [address] Platelets (Bld) [#/Vol] 200 10*3/uL Normal 150-450 [facility] Comment on above: Performed By: #### L 501.5425, L500.2500, L100.0100 #### [facility] [address] [place], [address] RBC (Bld) [#/Vol] 3.88 10*6/uL Low 4.2-5.4 [facility] Comment on above: Performed By: #### L 501.5425, L500.2500, L100.0100 #### [facility] [address] [place], [address] RDW SD 43.8 fl Normal 35.1-43.9 [facility] Comment on above: Performed By: #### L 501.5425, L500.2500, L100.0100 #### [facility] [address] [place], [address] WBC (Bld) [#/Vol] 9.5 10*3/uL Normal 4.4-11.0 [facility] Comment on above: Performed By: #### L 501.5425, L500.2500, L100.0100 #### [facility] [address] [place], [address] Chest 1 View (Portable)on Chest 1 View (Portable) [facility] Imaging Services [address] [place] [address] Chest 1 View (Portable) MR#: [id number] Acct: [id number] Name: TELMA TINEO Rep #: [id number] : 1940 F 84 From: Drew Walter DO PCP: Dr. Henok Martinez MD Status: REG ER Study: Chest 1 View (Portable) Date of Exam: 06/25/24 Exam# [id number] Ordering Dr: Guille Garnica MD [id number] INDICATION: chest pain EXAMINATION/TECHNIQUE: X-RAY - XR Chest 1 View COMPARISON: February 25, 2024 FINDINGS: LINES/DEVICES: None. LUNGS: No consolidation, edema or effusion. No pneumothorax. MEDIASTINUM AND CARDIOVASCULAR STRUCTURES: Cardiac silhouette not enlarged. Central airways and mediastinal contour are unremarkable. BONES AND SOFT TISSUES: Soft tissue calcifications lateral to the shoulder is likely due to diffuse calcific tendinopathy. RAD/Chest 1 View (Portable) IMPRESSION: No radiographic evidence of acute cardiopulmonary disease. Bilateral calcific tendinopathy at the shoulders. Electronically Signed: Drew Walter DO at 17:44 EDT Reading Location ID and State: [facility] / [place] Tel [phone], Service support , CC: Dr. Guille Garnica MD; Dr. Henok Martinez MD Supervisor Billposting: Signed Normal [facility] Emergency Department Summary on 06-25-2024 Emergency Department Summary [facility] Medical Records Department [address] [place] [address] Emergency Department Summary 06/25/24 MR#: [id number] Acct: [id number] Name: TELMA TINEO Rep #: [id number] : 1940 84 From: Guille Garnica MD PCP: Dr. Henok Martinez MD Status:REG ER Location: ED HPI History of Present Illness Chief Complaint: Chest Pain Narrative Narrative: 84-year-old female past medical history of TIA and stroke, atrial fibrillation, on Eliquis, hypertension, presents with 5 days of multiple somatic complaints ranging from left-sided neck pain and left-sided arm pain with chest pain. She felt like her heart was pounding out of her chest. She states she has a little bit of a headache as well. It is the entire left side of her neck and arm and chest. She denies any exacerbating or alleviating factors. [facility] Medical History (Updated 06/25/24 @ 18:05 by Guille Garnica MD) Neck pain, bilateral History of TIA (transient ischemic attack) Stroke/cerebrovascular accident Essential hypertension Complaint of melena Transient ischemic attack (03/2021) History of Lundberg's palsy GERD (gastroesophageal reflux disease) History of cancer History of blood transfusion Right atrial mass Former smoker Asthma Diabetes mellitus, type 2 Home Medications ???Medication ???Instructions ???Recorded ???Last Taken ???Type multivitamin 1 tab PO DAILY 06/19/21 Unknown History pantoprazole 40 mg tablet,delayed 40 mg PO DAILY gerd #90 tabs 08/28/21 Unknown Rx release metformin 500 mg tablet 500 mg PO BID 02/15/22 Unknown History atorvastatin 20 mg tablet 20 mg PO QHS 03/07/23 Unknown History fluticasone furoate 100 1 inh inhalation DAILY 03/07/23 Unknown History mcg-vilanterol 25 mcg/dose inhalation powder (Breo Ellipta) losartan 100 mg tablet 100 mg PO DAILY 03/07/23 Unknown History amlodipine 10 mg tablet 10 mg PO DAILY #90 tabs 11/21/23 Unknown Rx metoprolol tartrate 50 mg tablet 50 mg PO BID 11/21/23 Unknown History benzocaine 15 mg-menthol 2.6 mg 1 cee mucous membrane Q2H PRN sore 02/25/24 Unknown Rx lozenges (Cepacol Sore Throat throat #16 ea (benzocaine-menthol)) prednisone 50 mg tablet 50 mg PO DAILY #5 tabs 02/25/24 Unknown Rx apixaban 5 mg tablet 5 mg PO BID #180 tabs 04/28/24 Unknown Rx tramadol 50 mg tablet 50 mg PO Q6H PRN pain 3 days #12 06/25/24 Unknown Rx tabs Allergy/AdvReac Type Severity Reaction Status Date / Time Penicillins Allergy Severe Anaphylaxis Verified 06/25/24 15:23 tetracycline Allergy Severe anaphylaxis Verified 06/25/24 15:23 Family History Mother Pancreatic cancer CAD (coronary artery disease) Father Cancer Lung cancer Brother Parkinson disease Surgical History History of surgery H/O: hysterectomy H/O hemorrhoidectomy History of bladder surgery H/O rhinoplasty History of cataract surgery History of appendectomy Social History Smoking Status: Former smoker how long ago did patient quit smokin+ years alcohol intake: never substance use type: does not use ROS ROS ED ROS Narrative Constitutional: No fever, no chills. HEENT: No sore throat. Left-sided neck pain. No loss of vision. No rhinorrhea. Cardiovascular: Positive chest pain. No palpitations. No pedal edema. Respiratory: No cough, no shortness of breath. Abdominal: No abdominal pain. No nausea. No vomiting. Genitourinary: No dysuria. No hematuria. Musculoskeletal: No myalgias. No arthralgias. Neurologic: Positive headaches. No dizziness. No lightheadedness. Skin: No rash. No change in color. Psychiatric: No depression. No anxiety. EXAM Physical Exam Narrative Exam Narrative: Afebrile. Vital signs noted. HEENT: Normocephalic. Atraumatic. PERRL, EOMI. Neck soft and supple. No point tenderness or step off. No vertebral point tenderness or bony step-off. Reproducible tenderness to palpation on the left paraspinal cervical musculature. No crepitance. Cardiovascular: Regular rate and rhythm. No murmurs, rubs, or gallops appreciated. Respiratory: No tachypnea. Lungs clear to auscultation bilaterally. Gastrointestinal: Abdomen soft, nontender, with normoactive bowel sounds. No rebound or guarding. Neurological: Awake. Alert. Nonfocal, nonlateralizing. Skin: No rash. Normal color. No pallor. Musculoskeletal: No pedal edema. Full range of motion extremities. Const Vital Signs: 06/25/24 15:23 06/25/24 15:38 06/25/24 15:48 Temperature 97.5 F L Temperature Source Temporal Pulse Rate 74 Respiratory Rate 18 Respiratory Effort Normal Non-Labored Respiratory Pattern Blood Pressure 133/66 H Blood Pressure Me (more content not included)... Normal [facility] L501.4020on 06-25-2024 TROPONIN-I HS 28 pg/mL Normal 3.0-54.0 [facility] Comment on above: Result Comment: Plea se Note: New Test Units and Gender Specific Reference Ranges. For more information see Policy Stat Procedure [place] High Sensitivity Troponin (TNIH) and attachments. Performed By: #### L 501.4020 ####[facility] [address] [place], [address] L501.5425on 06-25-2024 TROPONIN-I HS 29 pg/mL Normal 3.0-54.0 [facility] Comment on above: Order Comment: 1 Y Result Comment: Plea se Note: New Test Units and Gender Specific Reference Ranges. For more information see Policy Stat Procedure [place] High Sensitivity Troponin (TNIH) and attachments. Performed By: #### L 501.5425, L500.2500, L100.0100 #### [facility] [address] [place], [address] Spine Cervical without Contr ason 06-25-2024 Spine Cervical without Contras [facility] Imaging Services [address] [place] [address] Spine Cervical without Contras MR#: [id number] Acct: [id number] Name: TELMA TINEO Rep #: [id number] : 1940 F 84 From: Drew Walter DO PCP: Dr. Henok Martinez MD Status: REG ER Study: Spine Cervical without Contras Date of Exam: 0 06/25/24 Exam# [id number] Ordering Dr: Guille Garnica MD [id number] STUDY: CT CERVICAL SPINE WITHOUT CONTRAST REASON FOR EXAM: Female, 84 years old. neck pain RADIATION DOSAGE (If Supplied By Facility): CTDIvol = ( 25.39 ) mGy, DLP = ( 512.09 ) mGycm TECHNIQUE: High resolution transaxial imaging was performed without contrast material. Sagittal and coronal images were reconstructed. Individualized dose optimization techniques were used for this CT. COMPARISON: None FINDINGS: Normal craniovertebral junction. Normal anterior atlantoaxial articulation. Normal odontoid process. Normal cervical lordosis. Normal vertebral bodies and posterior osseous elements. C2-3: Normal endplates. Normal disc height and morphology. Normal central canal and intervertebral neuroforamina. C3-4: Mild spurring at the endplates. Normal disc height and morphology. Normal central canal and intervertebral neuroforamina. C4-5: Mild spurring at the endplates. Normal disc height and morphology. Normal central canal. Facet hypertrophy and slightly narrowing the left intervertebral neural foramen. C5-6: Mild spurring at the endplates. Narrowed disc height. Posterior spurring protruding into the central canal. Uncovertebral spurring narrowing the intervertebral neuroforamina, left more than right. C6-7: Mild spurring at the endplates. Narrowed disc height. Normal central canal. Uncovertebral spurring slightly narrowing the right intervertebral neural foramen. C7-T1: Normal endplates. Normal disc height and morphology. Normal central canal and intervertebral neuroforamina. Normal visualized soft tissue structures. CT/Spine Cervical without Contras IMPRESSION: Degenerative changes. No acute bony injury of the cervical spine. Electronically Signed: Drew Walter DO at 17:27 EDT , CC: Dr. Guille Garnica MD; Dr. Henok Martinez MD Supervisor Billposting: Signed Normal [facility] XR Ribs - right Views and est PAon 06-11-2024 IMPRESSION: No acute findings. Supervisor Billposting: AMBER Transcribe Date/Time: Jun 11 2024 6:48A Dictated by : CHANEL NARAYANAN MD This examination was interpreted and the report reviewed and electronically signed by: CHANEL NARAYANAN MD on Jun 11 2024 6:49AM [facility] DIVISION OF RADIOLOGY * * *Final Report* * * DATE OF EXAM: Jun 06 2024 8:13AM WOX [id number] - XR RIB/CHST 3V AP RIB/OBL/CHST R / PROCEDURE REASON: Rib pain on right side * * * * Physician Interpretation * * * * XR RIB/CHST 3V AP RIB/OBL/CHST R HISTORY: pain lower lateral right side of ribs for a week, no inj marked with a bb. Rib pain on right side . TECHNIQUE: Frontal chest and frontal/oblique views of the RIGHT ribs. COMPARISON: 05/01/2024 RESULT: Borderline cardiac enlargement. No consolidation. No pleural effusion or pneumothorax is identified. The right-sided ribs appear intact with no fracture or bony destruction. - DIVISION OF RADIOLOGY Provider, [facility] - 06/11/2024 * * *Final Report* * * DATE OF EXAM: Jun 06 2024 8:13AM WOX [id number] - XR RIB/CHST 3V AP RIB/OBL/CHST R / PROCEDURE REASON: Rib pain on right side * * * * Physician Interpretation * * * * XR RIB/CHST 3V AP RIB/OBL/CHST R HISTORY: pain lower lateral right side of ribs for a week, no inj marked with a bb. Rib pain on right side . TECHNIQUE: Frontal chest and frontal/oblique views of the RIGHT ribs. COMPARISON: 05/01/2024 RESULT: Borderline cardiac enlargement. No consolidation. No pleural effusion or pneumothorax is identified. The right-sided ribs appear intact with no fracture or bony destruction. - IMPRESSION IMPRESSION: No acute findings. Supervisor Billposting: AMBER Transcribe Date/Time: Jun 11 2024 6:48A Dictated by : CHANEL NARAYANAN MD This examination was interpreted and the report reviewed and electronically signed by: CHANEL NARAYANAN MD on Jun 11 2024 6:49AM EST [facility] XR Ribs - right Views and Ch est PAOrdered By: Ccf Provider on 06-11-2024 [facility] XR RIB/CHST 3V AP RIB/OBL/CH ST Aman 06-06-2024 XR RIB/CHST 3V AP RIB/OBL/CHST R * * *Final Report* * * DATE OF EXAM: Jun 06 2024 8:13AM WOX [id number] - XR RIB/CHST 3V AP RIB/OBL/CHST R / PROCEDURE REASON: Rib pain on right side * * * * Physician Interpretation * * * * XR RIB/CHST 3V AP RIB/OBL/CHST R HISTORY: pain lower lateral right side of ribs for a week, no inj marked with a bb. Rib pain on right side . TECHNIQUE: Frontal chest and frontal/oblique views of the RIGHT ribs. COMPARISON: 05/01/2024 RESULT: Borderline cardiac enlargement. No consolidation. No pleural effusion or pneumothorax is identified. The right-sided ribs appear intact with no fracture or bony destruction. - IMPRESSION: No acute findings. Supervisor Billposting: PSCB Transcribe Date/Time: Jun 11 2024 6:48A Dictated by : CHANEL NARAYANAN MD This examination was interpreted and the report reviewed and electronically signed by: CHANEL NARAYANAN MD on Jun 11 2024 6:49AM EST [id number] Normal [facility] XR Ribs - right Views and Ch est PAon 06-06-2024 Radiology Study observation (narrative) [facility] CNOVon 06-05-2024 CNOV Office Visit (PULMWS ) -- TELMA TINEO ([id number]) 1940 F Date Time Provider Department 06/05/24 11:45 AM NANCY MEDLEY PULMWS During your visit today, we recorded the following information about you: Weight 73.5 kg Nancy Medley MD 06/05/2024 3:10 PM Signed 0. Respiratory [place] Note Patient name: Telma Tineo PCP: Henok Martinez MD CC: follow-up Asthma HPI: Telma Tineo 83 year old female former minimal smoker with PMH significant for CVA, HTN, DM2, GERD, chronic Afib (Eliquis), obesity, longstanding asthma, allergies presenting for follow-up. Current therapy with Breo Ellipta and as needed albuterol. Since her last visit, she was sick with an URI at the end of January into February. She was treated with Zpak and Prenisone without resolution of symptoms. Her PCP prescribed Levaquin and symptoms resolved after. No other ED/urgent care visits since her ESTELLE related to breathing. Today, patient notes SOB with heavy exertion or if hot/humid. No cough or hemoptysis. No wheezing. No nocturnal symptoms. No unintended weight loss. Has mild lower extremity edema. Reports she does not use Breo every day if she's feeling well. She has been using it more lately d/t the heat. Does not use Albuterol. She additionally reports aching pain on her right ribs. Occasionally radiates towards her chest. Pain started 4 days ago but has been constant for the past 2 days. Does note she had some pain in her ribs during her acute illness in February when she was coughing. Pain worse when taking a big breath in. No falls/injury to the site. No rashes/skin lesions. She denies attempting any treatment for relief. DATA: PFT: 09/2022 IMPRESSION: Spirometry is normal. There was not a significant bronchodilator response. Imaging / Diagnostic Studies: Chest xray 05/01/2024 I personally reviewed the images with shows mild eventration of right diaphragm PAST MEDICAL HISTORY No date: Allergies No date: Lundberg's palsy No date: Bronchiectasis (HCC) No date: Gastroesophageal reflux disease without esophagitis No date: History of CVA (cerebrovascular accident) No date: Mild intermittent asthma without complication No date: Primary hypertension No date: Type 2 diabetes mellitus without complication, without long- term current use of insulin (HCC) ALLERGIES Allergen Reactions Penicillins Anaphylaxis Tetracycline Rash atorvastatin (LIPITOR) 20 mg tablet Take 1 tablet by mouth once daily. ELIQUIS 5 mg tab(s) Take 5 mg by mouth two times a day. PEG 400-propylene glycol (SYSTANE ULTRA) 0.4-0.3 % ophthalmic solution Use 1 Drop in both eyes three times a day. Artificial Tear, Hypromellose, (SYSTANE GEL) 0.3 % gel Use 1 Drop in both eyes daily at bedtime. pantoprazole DR (PROTONIX) 40 mg tablet Take 1 tablet by mouth once daily. benzocaine-menthol (CEPACOL) 15-2.6 mg lozg lozenge Take 1 Lozenge by mouth every 4 hours as needed for pain. fluticasone-vilanterol (BREO ELLIPTA) 100-25 mcg/dose inhaler Inhale 1 Inhalation as instructed once daily. Promethazine-DM (PHENERGAN-DM) 6.25-15 mg/5 mL syrup Take 5 mL by mouth four times a day as needed. metoprolol tartrate, short acting, (LOPRESSOR) 50 mg tablet Take 1.5 tablets by mouth two times a day. losartan (COZAAR) 100 mg tablet Take 1 tablet by mouth once daily. amLODIPine (NORVASC) 10 mg tablet Take 10 mg by mouth once daily. metFORMIN (GLUCOPHAGE) 500 mg tablet Take 2 tablets by mouth two times a day with meals. Blood Pressure Test Kit-Large (Mapidy ARM BP MONITOR) 1 Each once daily. Methylsulfonylmethane (MSM) 1,000 mg cap Take 1 capsule by mouth once daily. Social History Tobacco Use Smoking status: Former Smokeless tobacco: Never Tobacco comments: Light smoker for 7 years in early adulthood Vaping Use Vaping Use: Never used Substance Use Topics Alcohol use: Not Currently Drug use: Never FAMILY HISTORY Problem Relation Age of Onset Lung Cancer Father Pancreatic Cancer Mother Heart disease Son No Ocular Disease No Family History PAST SURGICAL HISTORY No date: APPENDECTOMY No date: CATARACT EXTRACTION HX 10/04/2022: COLONOSCOPY SCREENING Comment: no specimens collected, No further screening colonoscopies required No date: HEMORRHOIDECTOMY No date: HYSTERECTOMY HX Comment: without bso No date: PAST SURGICAL HISTORY OF Comment: ? repair of cystocele No date: RHINOPLASTY; N/A No date: TONSILLECTOMY AND ADENOIDECTOMY PMH, Social history, family history and surgical history reviewed and updated in EMR REVIEW OF SYSTEMS: CONSTITUTIONAL: No fevers, chills, nightsweats, unintended weight loss. HEENT: Denies frequent or severe headaches, nasal congestion/sinus symptoms. EYES: No diplopia or blurry vision. CARDIOVASCULAR: Occasional palpitations. Ankle edema baseline. No chest pain. PULM: see HPI. GI (more content not included)... Normal [facility] XR Chest PA and Lateralon IMPRESSION: No acute radiographic abnormality. Supervisor Billposting: PSCB Transcribe Date/Time: May 05 2024 7:52A Dictated by : NANCY CLARKE MD This examination was interpreted and the report reviewed and electronically signed by: NANCY CLARKE MD on May 05 2024 7:52AM [facility] DIVISION OF RADIOLOGY * * *Final Report* * * DATE OF EXAM: May 01 2024 4:46PM WOX [id number] - XR CHEST 2V FRONTAL/LAT / PROCEDURE REASON: Abnormal x-ray * * * * Physician Interpretation * * * * EXAMINATION: CHEST RADIOGRAPH (2 VIEW FRONTAL & LATERAL) CLINICAL HISTORY: Abnormal x-ray MQ: XC2_6 EXAM DATE/TIME: 05/01/2024 4:46 PM COMPARISON: 12/05/2023 RESULT: The cardiomediastinal silhouette is stable. Atherosclerotic calcific rations are present within the aorta. Pulmonary vasculature is not congested. There is no focal consolidation or pleural fluid. No suspicious nodules. Mild eventration right hemidiaphragm is unchanged. No pneumothorax. DIVISION OF RADIOLOGY [facility] * * *Final Report* * * DATE OF EXAM: May 01 2024 4:46PM WOX [id number] - XR CHEST 2V FRONTAL/LAT / PROCEDURE REASON: Abnormal x-ray * * * * Physician Interpretation * * * * EXAMINATION: CHEST RADIOGRAPH (2 VIEW FRONTAL & LATERAL) CLINICAL HISTORY: Abnormal x-ray MQ: XC2_6 EXAM DATE/TIME: 05/01/2024 4:46 PM COMPARISON: 12/05/2023 RESULT: The cardiomediastinal silhouette is stable. Atherosclerotic calcific rations are present within the aorta. Pulmonary vasculature is not congested. There is no focal consolidation or pleural fluid. No suspicious nodules. Mild eventration right hemidiaphragm is unchanged. No pneumothorax. IMPRESSION IMPRESSION: No acute radiographic abnormality. Supervisor Billposting: PSCB Transcribe Date/Time: May 05 2024 7:52A Dictated by : NANCY CLARKE MD This examination was interpreted and the report reviewed and electronically signed by: NANCY CLARKE MD on May 05 2024 7:52AM EST [facility] XR Chest PA and LateralOrder ed By: Ccf Provider on 05-05-2024 [facility] XR Chest PA and Lateralon Radiology Study observation (narrative) [facility] Cardiology Visit Reporton Cardiology Visit Report [facility] [address] [place], [place] [address] OFFICE VISIT Date of Service: 04/28/24 MR#: [id number] Acct: [id number] Name: TELMA TINEO Rep #: [id number] : 1940 Provider: Dr. Zachary Sarabia MD Age/Sex: 83/F Location[place] [facility] [place] Status: Signed HPI HPI History of Present Illness Details: This is an 83-year-old female that presents here today for a cardiovascular follow-up. She has a history of hypertension and CVA in March 2021. She was initially thought to have a right atrial mass in 2020 and she eventually underwent a JOSE in February 2023 which demonstrated normal ventricular size and function and no evidence of right atrial mass. Cardiac catheterization at that time also demonstrated no obstructive coronary disease. Her major problem is that her blood pressure has been elevated recently and she has presented to the emergency room with this as well. She has had no dizziness or diaphoresis no near syncope or syncope. She continues to have an irregularly irregular heart rate. 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 Is patient in pain?: No Allergies Penicillins Allergy (Severe, Verified 04/28/24 14:59) Anaphylaxis tetracycline Allergy (Severe, Verified 04/28/24 14:59) anaphylaxis Medications ???Medication ???Instructions ???Recorded ???Confirmed ???Type multivitamin 1 tab PO DAILY 06/19/21 04/28/24 History pantoprazole 40 mg tablet,delayed 40 mg PO DAILY gerd #90 tabs 08/28/21 04/28/24 Rx release metformin 500 mg tablet 500 mg PO BID 02/15/22 04/28/24 History atorvastatin 20 mg tablet 20 mg PO QHS 03/07/23 04/28/24 History fluticasone furoate 100 1 inh inhalation DAILY 03/07/23 04/28/24 History mcg-vilanterol 25 mcg/dose inhalation powder (Breo Ellipta) losartan 100 mg tablet 100 mg PO DAILY 03/07/23 04/28/24 History amlodipine 10 mg tablet 10 mg PO DAILY #90 tabs 11/21/23 04/28/24 Rx metoprolol tartrate 50 mg tablet 50 mg PO BID 11/21/23 04/28/24 History benzocaine 15 mg-menthol 2.6 mg 1 cee mucous membrane Q2H PRN sore 02/25/24 04/28/24 Rx lozenges (Cepacol Sore Throat throat #16 ea (benzocaine-menthol)) prednisone 50 mg tablet 50 mg PO DAILY #5 tabs 02/25/24 04/28/24 Rx apixaban 2.5 mg tablet (Eliquis) 2.5 mg PO BID #180 tabs 03/20/24 04/28/24 Rx Have you fallen in the past year?: No PFSH Medical History Neck pain, bilateral History of TIA (transient ischemic attack) Stroke/cerebrovascular accident Essential hypertension Complaint of melena Transient ischemic attack (03/2021) History of Lundberg's palsy GERD (gastroesophageal reflux disease) History of cancer History of blood transfusion Right atrial mass Former smoker Asthma Diabetes mellitus, type 2 Surgical History History of surgery H/O: hysterectomy H/O hemorrhoidectomy History of bladder surgery H/O rhinoplasty History of cataract surgery History of appendectomy Family History Mother Pancreatic cancer CAD (coronary artery disease) Father Cancer Lung cancer Brother Parkinson disease Social History Smoking Status: Former smoker how long ago did patient quit smokin+ years alcohol intake: never substance use type: does not use ROS Const Const: Negative for fatigue, weakness, headache(s), daytime sleepiness or difficulty sleeping ENT ENT: Negative for headache(s), dizziness or Nosebleed/epistaxis Cardio Chest Pain: No Palpitations: No Edema: Bilateral (BLE at times) Resp Respiratory: Negative for SOB with activity, SOB at rest, SOB orthopnea SOB lying down or Cough GI GI: Negative nausea, vomiting or heartburn Neuro Neuro: Negative for dizziness, lightheadedness, near syncope, headache(s) or weakness Endo Endo: Negative for fatigue Cardiology Exam Const Appearance: cooperative, healthy appearing, no acute distress, well developed and well groomed Nutritional Appearance: average body habitus and well nourished Orientation: alert, awake and oriented x3 Head Head: normal to inspection, normocephalic and atraumatic Ears: hearing grossly normal bilaterally and external ears normal Nose: external nose normal, nares normal, nasal mucous membranes and turbinates normal, septum normal and no nasal discharge Face and Sinus: face symmetric Mouth: or (more content not included)... Normal [facility] XR Chest PA and Lateralon IMPRESSION: Questionable lung nodules. Consider short-term follow-up. Supervisor Billposting: AMBER Transcribe Date/Time: Mar 05 2024 5:02P Dictated by : ZULLY CEDENO MD This examination was interpreted and the report reviewed and electronically signed by: ZULLY CEDENO MD on Mar 05 2024 5:03PM [facility] DIVISION OF RADIOLOGY * * *Final Report* * * DATE OF EXAM: Mar 04 2024 3:46PM WOX [id number] - XR CHEST 2V FRONTAL/LAT / PROCEDURE REASON: Bronchitis * * * * Physician Interpretation * * * * EXAMINATION: CHEST RADIOGRAPH (2 VIEW FRONTAL & LATERAL) CLINICAL HISTORY: Bronchitis MQ: XC2_6 EXAM DATE/TIME: 03/04/2024 3:46 PM COMPARISON: Chest x-ray on 10/26/2022 RESULT: Lines, tubes, and devices: None. Lungs and pleura: A few questionable lung nodules projecting over the lower thoracic spine, only seen on lateral view. No consolidation. No lung mass. No pleural effusion. No pneumothorax. Cardiomediastinal silhouette: Normal cardiomediastinal silhouette. Bones and soft tissues: The spine shows degenerative changes. DIVISION OF RADIOLOGY Provider, Molly Chaka [place] - 03/05/2024 * * *Final Report* * * DATE OF EXAM: Mar 04 2024 3:46PM WOX 5291 - XR CHEST 2V FRONTAL/LAT / PROCEDURE REASON: Bronchitis * * * * Physician Interpretation * * * * EXAMINATION: CHEST RADIOGRAPH (2 VIEW FRONTAL & LATERAL) CLINICAL HISTORY: Bronchitis MQ: XC2_6 EXAM DATE/TIME: 03/04/2024 3:46 PM COMPARISON: Chest x-ray on 10/26/2022 RESULT: Lines, tubes, and devices: None. Lungs and pleura: A few questionable lung nodules projecting over the lower thoracic spine, only seen on lateral view. No consolidation. No lung mass. No pleural effusion. No pneumothorax. Cardiomediastinal silhouette: Normal cardiomediastinal silhouette. Bones and soft tissues: The spine shows degenerative changes. IMPRESSION IMPRESSION: Questionable lung nodules. Consider short-term follow-up. Supervisor Billposting: AMBER Transcribe Date/Time: Mar 05 2024 5:02P Dictated by : ZULLY CEDENO MD This examination was interpreted and the report reviewed and electronically signed by: ZULLY CEDENO MD on Mar 05 2024 5:03PM EST [facility] XR Chest PA and LateralOrder ed By: Ccf Provider on 03-05-2024 [facility] XR Chest PA and Lateralon Radiology Study observation (narrative) [facility] Absolute lymphocyte countOrd ered By: Gabe Foster on 02-25-2024 Lymphocytes Auto (Unsp spec) [#/Vol] 0.73 10*3/uL 0.83-4.51 [facility] Automated lymphocyte count a s percentage of total leukocytesOrdered By: Gabe Foster on 02-25-2024 Lymphocytes/100 WBC Auto (Unsp spec) 9.0 % 19-41 [facility] Basophil percentageOrdered B y: Gabe Foster on 02-25-2024 Basophil percentage 0 SEEN /hpf 0-5 [facility] Basophils/100 WBC (Bld) 0.4 % 0-1 [facility] Chloride [Moles/Vol] 97 mmol/L 98-107 [facility] Eosinophils/100 WBC (Bld) 0.2 % 0-5 [facility] Glucose [Mass/Vol] 270 mg/dL 74-106 [facility] Comment on above: Glucose result great er than or equal to 200 mg/dLsuggests DIABETES MELLITUS per A.D.A. criteria. Hemoglobin (Bld) [Mass/Vol] 12.5 g/dL 12.0-15.0 [facility] Monocytes/100 WBC (Bld) 13.1 % 0-10 [facility] Neutrophils (Bld) [#/Vol] 6.2 10*3/uL 2.0-7.7 [facility] Neutrophils/100 WBC (Bld) 76.3 % 47-70 [facility] Potassium [Moles/Vol] 3.8 mmol/L 3.5-5.1 [facility] Sodium [Moles/Vol] 129 mmol/L 136-145 [facility] WBC (Bld) [#/Vol] 8.1 10*3/uL 4.4-11.0 [facility] Bilirubin Test strip Ql (U)O rdered By: Gabe Foster on 02-25-2024 Bilirubin Ql (U) Negative Negative [facility] Determination of erythrocyte mean corpuscular volume (MCV)Ordered By: Gabe Foster on 02-25-2024 MCV (RBC) [Entitic vol] 87.9 fL 81-99 [facility] Erythrocyte distribution wid th ratioOrdered By: Gabe Foster on 02-25-2024 Erythrocyte distribution width (RBC) [Ratio] 12.9 % 11.6-14.6 [facility] Erythrocyte distribution wid th standard deviationOrdered By: Gabe Foster on 02-25-2024 Erythrocyte distribution width (RBC) [Entitic vol] 41.6 fL 35.1-43.9 [facility] Hematocrit Auto (Bld) [Volum e fraction]Ordered By: Gabe Foster on 02-25-2024 Hematocrit (Bld) [Volume fraction] 37.7 % 37-47 [facility] Immature granulocytes/100 WB C Auto (Bld)Ordered By: Gabe Foster on 02-25-2024 Immature granulocytes/100 WBC (Bld) 1.000 % 0.0-0.9 [facility] Comment on above: IG% - Immature Granu locytes (promyelocytes, myelocytes and metamyelocytes) > 1% indicates that a LEFT SHIFT is Present. Ketones Test strip Ql (U)Ord ered By: Gabe Foster on 02-25-2024 Ketones Ql (U) Negative Negative [facility] Laboratory - Chemistry and C hemistry - challengeOrdered By: Gabe Foster on 02-25-2024 CO2 [Moles/Vol] 24.0 mmol/L 21.0-32.0 [facility] Urea nitrogen/Creatinine [Mass ratio] 6.0 mg/mg 10-20 [facility] Laboratory - Hematology and Cell countsOrdered By: Gabe Foster on 02-25-2024 MCH (RBC) [Entitic mass] 29.1 pg 27.0-32.0 [facility] MCHC (RBC) [Mass/Vol] 33.2 g/dL 32-36 [facility] Nucleated RBC/100 WBC (Bld) [Ratio] 0 % 0-5 [facility] Platelet mean volume (Bld) [Entitic vol] 12.7 fL 6.2-12.0 [facility] Platelets (Bld) [#/Vol] 224 10*3/uL 150-450 [facility] Mucus LM Ql (Urine sed)Order ed By: Gabe Foster on 02-25-2024 Mucus Ql (Urine sed) 0 SEEN /hpf [facility] Nitrite Test strip Ql (U)Ord ered By: Gabe Foster on 02-25-2024 Nitrite Ql (U) Negative Negative [facility] No Panel InformationOrdered By: Gabe Foster on 02-25-2024 Estimated Creatinine Clearance Calc 32.73 ml/min [facility] Estimated GFR (MDRD) Amer 57 mL/min >60 [facility] Comment on above: GFR Calc Estimated GFR (MDRD) Non-Af Amer 47 mL/min >60 [facility] Comment on above: Non- GFR Calc Urine RBC 0 SEEN /hpf 0-5 [facility] Protein Test strip Ql (U)Ord ered By: Gabe Foster on 02-25-2024 Protein Ql (U) 30 mg/dl Negative [facility] RBC Auto (Bld) [#/Vol]Ordere d By: Gabe Foster on 02-25-2024 RBC (Bld) [#/Vol] 4.29 10*6/uL 4.2-5.4 [facility] Serum or plasma calcium froylan urement (mass/volume)Ordered By: Gabe Foster on 02-25-2024 Calcium [Mass/Vol] 9.1 mg/dL 8.5-10.1 [facility] Serum or plasma creatinine m easurement (mass/volume)Ordered By: Gabe Foster on 02-25-2024 Creatinine [Mass/Vol] 1.16 mg/dL 0.55-1.02 [facility] Comment on above: The validity of the calculated GFR & GFRAA in patients over 70 years has not been determined. Clinical correlation is essential. Serum or plasma urea nitroge n measurement (mass/volume)Ordered By: Gabe Foster on 02-25-2024 Urea nitrogen [Mass/Vol] 7 mg/dL 7-18 [facility] Squamous epithelial cells de tection in urine sediment by light microscopyOrdered By: Gabe Foster on 02-25-2024 Epithelial cells.squamous LM Ql (Urine sed) 0 SEEN /hpf 5-10 [facility] Thin prep Papanicolaou smear with manual screeningOrdered By: Gabe Foster on 02-25-2024 Thin prep Papanicolaou smear with manual screening 8 5-15 [facility] Urine blood detectionOrdered By: Gabe Foster on 02-25-2024 RBC Ql (U) 25 /ul Negative [facility] Urine clarityOrdered By: Hermilo Foster on 02-25-2024 Clarity (U) Clear Clear [facility] Urine color determinationOrd ered By: Gabe Foster on 02-25-2024 Color (U) Yellow Yellow [facility] Urine glucose detectionOrder ed By: Gabe Foster on 02-25-2024 Glucose Ql (U) 1000 mg/dl Normal [facility] Urine leukocyte esterase det ection by dipstickOrdered By: Gabe Foster on 02-25-2024 Leukocyte esterase Test strip Ql (U) Negative Negative [facility] Urine pHOrdered By: Gabe loyd on 02-25-2024 pH (U) 7.0 [pH] 5.0 - 8.0 [facility] Urine sediment bacteria coun t by microscopy (number/high power field)Ordered By: Gabe Foster on 02-25-2024 Bacteria LM.HPF (Urine sed) [#/Area] 0 /[HPF] None Seen [facility] Urine specific gravity measu rementOrdered By: Gabe Foster on 02-25-2024 Specific gravity (U) [Rel density] 1.005 1.002-1.030 [facility] Urine urobilinogen measureme ntOrdered By: Gabe Foster on 02-25-2024 Urobilinogen Ql (U) Normal mg/dl Normal [facility] COVID & INFLUENZA A/B & RSV NAAT, ROUTINEon 02-19-2024 FLUAV RNA GUNNER+probe Ql (Unsp spec) Not detected Not Detected [facility] FLUBV RNA GUNNER+probe Ql (Unsp spec) Not detected Not Detected [facility] Interpretation and review of laboratory results Normal [facility] RSV A RNA GUNNER+probe Ql (Unsp spec) Not detected Not Detected [facility] SARS-CoV-2 (COVID-19) RNA GUNNER+probe Ql (Resp) Not detected See comment [facility] Comment on above: The method used is R T-PCR or an equivalent NAAT method. Reference Range (the expected result in uninfected individuals): Not detected For upper respirator y tract samples, this test has been authorized by FDA under Emergenecy Use Authorization (EUA). For lower respiratory tract samples, this test was developed and its performance characteristics determined by [facility]'s [facility] ([facility] It has not been cleared or approved by the FDA. [facility] is regulated under CLIA as qualified to perform high-complexity testing. This test is used for clinical purposes. It should not be regarded as investigational or for research. Test performed by [facility], [facility] Pathology and Laboratory Medicine [place], [facility] [place] [address]. [facility] STREP A MOLECULAR (POC)on Procedural Control Valid [facility] Strep A (POCT) Negative Negative [facility] CBC W Auto Differential pane l (Bld)on 02-07-2024 Basophils (Bld) [#/Vol] 0.03 10*3/uL <0.11 k/uL [facility] Basophils/100 WBC (Bld) 0.2 % [facility] Differential cell count method Nom (Bld) Auto [facility] Eosinophils (Bld) [#/Vol] 0.12 10*3/uL <0.46 k/uL [facility] Eosinophils/100 WBC (Bld) 0.9 % [facility] Erythrocyte distribution width (RBC) [Ratio] 13.2 % 11.5 - 15.0 % [facility] Hematocrit (Bld) [Volume fraction] 38.2 % 36.0 - 46.0 % [facility] Hemoglobin (Bld) [Mass/Vol] 12.6 g/dL 11.5 - 15.5 g/dL [facility] Immature granulocytes (Bld) [#/Vol] 0.04 10*3/uL <0.10 k/uL [facility] Immature granulocytes/100 WBC (Bld) 0.3 % [facility] Lymphocytes (Bld) [#/Vol] 0.88 10*3/uL Low 1.00 - 4.00 k/uL [facility] Lymphocytes/100 WBC (Bld) 6.4 % [facility] MCH (RBC) [Entitic mass] 29.1 pg 26.0 - 34.0 pg [facility] MCHC (RBC) [Mass/Vol] 33.0 g/dL 30.5 - 36.0 g/dL [facility] MCV (RBC) [Entitic vol] 88.2 fL 80.0 - 100.0 fL [facility] Monocytes (Bld) [#/Vol] 1.00 10*3/uL High <0.87 k/uL [facility] Monocytes/100 WBC (Bld) 7.2 % [facility] Neutrophils (Bld) [#/Vol] 11.75 10*3/uL High 1.45 - 7.50 k/uL [facility] Neutrophils/100 WBC (Bld) 85.0 % [facility] Nucleated RBC (Bld) [#/Vol] <0.01 k/uL [facility] Nucleated RBC/100 WBC (Bld) [Ratio] 0.0 /100 WBC [facility] Platelet mean volume (Bld) [Entitic vol] 12.8 fL High 9.0 - 12.7 fL [facility] Platelets (Bld) [#/Vol] 189 10*3/uL 150 - 400 k/uL [facility] RBC (Bld) [#/Vol] 4.33 10*6/uL 3.90 - 5.2 0 m/uL [facility] WBC (Bld) [#/Vol] 13.82 10*3/uL High 3.70 - 11.00 k/uL [facility] Comprehensive metabolic 2000 panelon 02-07-2024 Albumin [Mass/Vol] 4.2 g/dL 3.9 - 4.9 g/dL [facility] ALP [Catalytic activity/Vol] 111 U/L 34 - 123 U/L [facility] ALT [Catalytic activity/Vol] 24 U/L 7 - 38 U/L [facility] Anion gap [Moles/Vol] 8 mmol/L Low 9 - 18 mmol/L [facility] AST [Catalytic activity/Vol] 19 U/L 13 - 35 U/L [facility] Bilirubin [Mass/Vol] 0.5 mg/dL 0.2 - 1 .3 mg/dL [facility] Calcium [Mass/Vol] 9.8 mg/dL 8.5 - 10. 2 mg/dL [facility] Chloride [Moles/Vol] 102 mmol/L 97 - 10 5 mmol/L [facility] CO2 [Moles/Vol] 26 mmol/L 22 - 30 mmol/L [facility] Creatinine [Mass/Vol] 0.79 mg/dL 0.58 - 0.96 mg/dL [facility] Estimated Glomerular Filtration Rate 74 mL/min/1.73m >=60 mL/min/1.73 m [facility] Glucose [Mass/Vol] 302 mg/dL High 74 - 99 mg/dL [facility] Potassium [Moles/Vol] 4.7 mmol/L 3.7 - 5.1 mmol/L [facility] Protein [Mass/Vol] 7.3 g/dL 6.3 - 8.0 g/dL [facility] Sodium [Moles/Vol] 136 mmol/L 136 - 144 mmol/L [facility] Urea nitrogen [Mass/Vol] 15 mg/dL 7 - 21 mg/dL [facility] Basophil percentageOrdered B y: Jatinder Khan on 10-04-2023 Basophil percentage < 1.0 mg/dL 0.55-1.02 [facility] No Panel InformationOrdered By: Jatinder Khan on 10-04-2023 Bedside Estimated GFR (eGFR) > 60.0000 mL/min >60 [facility] Basophil percentageOrdered B y: Jatinder Khan on 06-19-2023 Bilirubin [Mass/Vol] 0.50 mg/dL 0.20-1.00 [facility] Comment on above: For patients on eltr ombopag therapy, use of Dimension [place] TBIL is not recommended. Chloride [Moles/Vol] 109 mmol/L 98-107 [facility] Glucose [Mass/Vol] 173 mg/dL 74-106 [facility] Comment on above: Fasting Glucose resu lt greater than or equal to 126 mg/dL suggests DIABETES MELLITUS per A.D.A. criteria. Potassium [Moles/Vol] 4.3 mmol/L 3.5-5.1 [facility] Protein [Mass/Vol] 7.2 g/dL 6.4-8.2 [facility] Sodium [Moles/Vol] 142 mmol/L 136-145 [facility] Laboratory - Chemistry and C hemistry - challengeOrdered By: Jatinder Khan on 06-19-2023 ALP [Catalytic activity/Vol] 101 U/L 45-117 [facility] ALT [Catalytic activity/Vol] 59 U/L 13-56 [facility] CO2 [Moles/Vol] 29.0 mmol/L 21.0-32.0 [facility] Globulin (S) [Mass/Vol] 3.4 g/dL 2.2-4.2 [facility] Urea nitrogen/Creatinine [Mass ratio] 11.7 mg/mg 10-20 [facility] No Panel InformationOrdered By: Jatinder Khan on 06-19-2023 Estimated GFR (MDRD) Amer 73 mL/min >60 [facility] Comment on above: GFR Calc Estimated GFR (MDRD) Non-Af Amer 61 mL/min >60 [facility] Comment on above: Non- GFR Calc Thyroid Stimulating Hormone (TSH) 3.62 uIU/mL 0.358-3.74 [facility] Serum or plasma albumin froylan urement (mass/volume)Ordered By: Jatinder Khan on 06-19-2023 Albumin [Mass/Vol] 3.8 g/dL 3.2-5.0 [facility] Serum or plasma albumin/glob ulin mass ratioOrdered By: Jatinderdesirae Khan on 06-19-2023 Albumin/Globulin [Mass ratio] 1.1 {ratio} 0.9-2.4 [facility] Serum or plasma calcium froylan urement (mass/volume)Ordered By: [facility]der [facility]23 Calcium [Mass/Vol] 9.4 mg/dL 8.5-10.1 [facility] Serum or plasma creatinine m easurement (mass/volume)Ordered By: [facility]atinder [facility] on 06-19-2023 Creatinine [Mass/Vol] 0.94 mg/dL 0.55-1.02 [facility] Comment on above: The validity of the calculated GFR & GFRAA in patients over 70 years has not been determined. Clinical correlation is essential. Serum or plasma urea nitroge n measurement (mass/volume)Ordered By: Jatinder Khan on 06-19-2023 Urea nitrogen [Mass/Vol] 11 mg/dL 7-18 [facility] Thin prep Papanicolaou smear with manual screeningOrdered By: Jatinder [facility] on 06-19-2023 Thin prep Papanicolaou smear with manual screening 19 U/L 15-37 [facility] Thin prep Papanicolaou smear with manual screening 4 5-15 [facility] Absolute lymphocyte countOrd ered By: Dr. Foster on 04-22-2023 Lymphocytes Auto (Unsp spec) [#/Vol] 1.77 10*3/uL 0.83-4.51 [facility] Basophil percentageOrdered B y: Dr. Foster on 04-22-2023 Basophils/100 WBC (Bld) 0.4 % 0-1 [facility] Bilirubin [Mass/Vol] 0.50 mg/dL 0.20-1.00 [facility] Comment on above: For patients on eltr ombopag therapy, use of Dimension [place] TBIL is not recommended. Chloride [Moles/Vol] 106 mmol/L 98-107 [facility] Eosinophils/100 WBC (Bld) 2.2 % 0-5 [facility] Glucose [Mass/Vol] 125 mg/dL 74-106 [facility] Comment on above: Fasting Glucose resu lt from 100 to 125 mg/dL suggests IMPAIRED HOMEOSTASIS per A.D.A. criteria. Neutrophils (Bld) [#/Vol] 5.0 10*3/uL 2.0-7.7 [facility] Neutrophils/100 WBC (Bld) 65.0 % 47-70 [facility] Potassium [Moles/Vol] 4.1 mmol/L 3.5-5.1 [facility] Protein [Mass/Vol] 6.9 g/dL 6.4-8.2 [facility] Sodium [Moles/Vol] 139 mmol/L 136-145 [facility] WBC (Bld) [#/Vol] 7.7 10*3/uL 4.4-11.0 [facility] Blood erythrocytes count (nu mber/volume)Ordered By: Dr. Foster on 04-22-2023 RBC (Bld) [#/Vol] 4.02 10*6/uL 4.2-5.4 [facility] Blood hemoglobin measurement (mass/volume)Ordered By: Dr. Foster on 04-22-2023 Hemoglobin (Bld) [Mass/Vol] 11.6 g/dL 12.0-15.0 [facility] Blood lymphocytes/100 leukoc ytesOrdered By: Dr. Foster on 04-22-2023 Lymphocytes/100 WBC (Bld) 23.0 % 19-41 [facility] Blood monocytes/100 leukocyt esOrdered By: Dr. Foster on 04-22-2023 Monocytes/100 WBC (Bld) 9.0 % 0-10 [facility] Blood platelet mean volumeOr dered By: Dr. Foster on 04-22-2023 Platelet mean volume (Bld) [Entitic vol] 12.7 fL 6.2-12.0 [facility] Determination of erythrocyte mean corpuscular volume (MCV)Ordered By: Dr. Foster on 04-22-2023 MCV (RBC) [Entitic vol] 90.3 fL 81-99 [facility] Hematocrit Auto (Bld) [Volum e fraction]Ordered By: Dr. Foster on 04-22-2023 Hematocrit (Bld) [Volume fraction] 36.3 % 37-47 [facility] Laboratory - Chemistry and C hemistry - challengeOrdered By: Dr. Foster on 04-22-2023 ALP [Catalytic activity/Vol] 102 U/L 45-117 [facility] ALT [Catalytic activity/Vol] 61 U/L 13-56 [facility] CO2 [Moles/Vol] 27.0 mmol/L 21.0-32.0 [facility] Globulin (S) [Mass/Vol] 3.3 g/dL 2.2-4.2 [facility] Urea nitrogen/Creatinine [Mass ratio] 13.2 mg/mg 10-20 [facility] Laboratory - Hematology and Cell countsOrdered By: Dr. Foster on 04-22-2023 Erythrocyte distribution width (RBC) [Entitic vol] 43.6 fL 35.1-43.9 [facility] Erythrocyte distribution width (RBC) [Ratio] 13.2 % 11.6-14.6 [facility] Immature granulocytes/100 WBC (Bld) 0.400 % 0.0-0.9 [facility] Comment on above: IG% - Immature Granu locytes (promyelocytes, myelocytes and metamyelocytes) > 1% indicates that a LEFT SHIFT is Present. MCH (RBC) [Entitic mass] 28.9 pg 27.0-32.0 [facility] Nucleated RBC/100 WBC (Bld) [Ratio] 0 % 0-5 [facility] MCHC Auto (RBC) [Mass/Vol]Or dered By: Dr. Foster on 04-22-2023 MCHC (RBC) [Mass/Vol] 32.0 g/dL 32-36 [facility] No Panel InformationOrdered By: Dr. Foster on 04-22-2023 Estimated Creatinine Clearance Calc 37.54 ml/min [facility] Estimated GFR (MDRD) Amer 84 mL/min >60 [facility] Comment on above: GFR Calc Estimated GFR (MDRD) Non-Af Amer 70 mL/min >60 [facility] Comment on above: Non- GFR Calc Troponin I High Sensitivity 52 pg/mL 3.0-54.0 [facility] Comment on above: Please Note: [place] t Units and Gender Specific Reference Ranges. For more information see Policy Stat Procedure [place] High Sensitivity Troponin (TNIH) and attachments. Platelets bldOrdered By: Dr. Foster on 04-22-2023 Platelets (Bld) [#/Vol] 181 10*3/uL 150-450 [facility] Serum or plasma albumin froylan urement (mass/volume)Ordered By: Dr. Foster on 04-22-2023 Albumin [Mass/Vol] 3.6 g/dL 3.2-5.0 [facility] Serum or plasma albumin/glob ulin mass ratioOrdered By: Dr. Foster on 04-22-2023 Albumin/Globulin [Mass ratio] 1.1 {ratio} 0.9-2.4 [facility] Serum or plasma calcium froylan urement (mass/volume)Ordered By: Dr. Foster on 04-22-2023 Calcium [Mass/Vol] 9.5 mg/dL 8.5-10.1 [facility] Serum or plasma creatinine m easurement (mass/volume)Ordered By: Dr. Foster on 04-22-2023 Creatinine [Mass/Vol] 0.83 mg/dL 0.55-1.02 [facility] Comment on above: The validity of the calculated GFR & GFRAA in patients over 70 years has not been determined. Clinical correlation is essential. Serum or plasma urea nitroge n measurement (mass/volume)Ordered By: Dr. Foster on 04-22-2023 Urea nitrogen [Mass/Vol] 11 mg/dL 7-18 [facility] Thin prep Papanicolaou smear with manual screeningOrdered By: Dr. Foster on 04-22-2023 Thin prep Papanicolaou smear with manual screening 40 U/L 15-37 [facility] Thin prep Papanicolaou smear with manual screening 6 5-15 [facility] Absolute lymphocyte countOrd ered By: Dr. Velazco on 04-05-2023 Lymphocytes Auto (Unsp spec) [#/Vol] 1.78 10*3/uL 0.83-4.51 [facility] Basophil percentageOrdered B y: Dr. Velazco on 04-05-2023 Basophils/100 WBC (Bld) 0.6 % 0-1 [facility] Chloride [Moles/Vol] 104 mmol/L 98-107 [facility] Eosinophils/100 WBC (Bld) 2.3 % 0-5 [facility] Glucose [Mass/Vol] 303 mg/dL 74-106 [facility] Comment on above: Glucose result great er than or equal to 200 mg/dLsuggests DIABETES MELLITUS per A.D.A. criteria. Neutrophils (Bld) [#/Vol] 4.6 10*3/uL 2.0-7.7 [facility] Neutrophils/100 WBC (Bld) 63.5 % 47-70 [facility] Potassium [Moles/Vol] 3.9 mmol/L 3.5-5.1 [facility] Comment on above: Slight Hemolysis, Re sult may be falsely increased. Sodium [Moles/Vol] 136 mmol/L 136-145 [facility] WBC (Bld) [#/Vol] 7.2 10*3/uL 4.4-11.0 [facility] Blood erythrocytes count (nu mber/volume)Ordered By: Dr. Velazco on 04-05-2023 RBC (Bld) [#/Vol] 4.11 10*6/uL 4.2-5.4 [facility] Blood hemoglobin measurement (mass/volume)Ordered By: Dr. Velazco on 04-05-2023 Hemoglobin (Bld) [Mass/Vol] 12.0 g/dL 12.0-15.0 [facility] Blood lymphocytes/100 leukoc ytesOrdered By: Dr. Velazco on 04-05-2023 Lymphocytes/100 WBC (Bld) 24.6 % 19-41 [facility] Blood monocytes/100 leukocyt esOrdered By: Dr. Velazco on 04-05-2023 Monocytes/100 WBC (Bld) 8.6 % 0-10 [facility] Blood platelet mean volumeOr dered By: Dr. Velazco on 04-05-2023 Platelet mean volume (Bld) [Entitic vol] 12.9 fL 6.2-12.0 [facility] Determination of erythrocyte mean corpuscular volume (MCV)Ordered By: Dr. Velazco on 04-05-2023 MCV (RBC) [Entitic vol] 91.2 fL 81-99 [facility] Hematocrit Auto (Bld) [Volum e fraction]Ordered By: Dr. Velazco on 04-05-2023 Hematocrit (Bld) [Volume fraction] 37.5 % 37-47 [facility] Laboratory - Chemistry and C hemistry - challengeOrdered By: Dr. Velazco on 04-05-2023 CO2 [Moles/Vol] 24.0 mmol/L 21.0-32.0 [facility] Urea nitrogen/Creatinine [Mass ratio] 12.0 mg/mg 10-20 [facility] Laboratory - Hematology and Cell countsOrdered By: Dr. Velazco on 04-05-2023 Erythrocyte distribution width (RBC) [Entitic vol] 44.4 fL 35.1-43.9 [facility] Erythrocyte distribution width (RBC) [Ratio] 13.3 % 11.6-14.6 [facility] Immature granulocytes/100 WBC (Bld) 0.400 % 0.0-0.9 [facility] Comment on above: IG% - Immature Granu locytes (promyelocytes, myelocytes and metamyelocytes) > 1% indicates that a LEFT SHIFT is Present. MCH (RBC) [Entitic mass] 29.2 pg 27.0-32.0 [facility] Nucleated RBC/100 WBC (Bld) [Ratio] 0 % 0-5 [facility] MCHC Auto (RBC) [Mass/Vol]Or dered By: Dr. Velazco on 04-05-2023 MCHC (RBC) [Mass/Vol] 32.0 g/dL 32-36 [facility] No Panel InformationOrdered By: Dr. Velazco on 04-05-2023 Estimated Creatinine Clearance Calc 28.85 ml/min [facility] Estimated GFR (MDRD) Amer 62 mL/min >60 [facility] Comment on above: GFR Calc Estimated GFR (MDRD) Non-Af Amer 52 mL/min >60 [facility] Comment on above: Non- GFR Calc Troponin I High Sensitivity 38 pg/mL 3.0-54.0 [facility] Comment on above: Please Note: [place] t Units and Gender Specific Reference Ranges. For more information see Policy Stat Procedure [place] High Sensitivity Troponin (TNIH) and attachments. Platelets bldOrdered By: Dr. Velazco on 04-05-2023 Platelets (Bld) [#/Vol] 228 10*3/uL 150-450 [facility] Serum or plasma calcium froylan urement (mass/volume)Ordered By: Dr. Velazco on 04-05-2023 Calcium [Mass/Vol] 9.3 mg/dL 8.5-10.1 [facility] Serum or plasma creatinine m easurement (mass/volume)Ordered By: Dr. Velazco on 04-05-2023 Creatinine [Mass/Vol] 1.08 mg/dL 0.55-1.02 [facility] Comment on above: The validity of the calculated GFR & GFRAA in patients over 70 years has not been determined. Clinical correlation is essential. Serum or plasma urea nitroge n measurement (mass/volume)Ordered By: Dr. Velazco on 04-05-2023 Urea nitrogen [Mass/Vol] 13 mg/dL 7-18 [facility] Thin prep Papanicolaou smear with manual screeningOrdered By: Dr. Velazco on 04-05-2023 Thin prep Papanicolaou smear with manual screening 8 5-15 [facility] Absolute lymphocyte countOrd ered By: ED PROVIDER on 03-30-2023 Lymphocytes Auto (Unsp spec) [#/Vol] 2.60 10*3/uL 0.83-4.51 [facility] Basophil percentageOrdered B y: ED PROVIDER on 03-30-2023 Basophils/100 WBC (Bld) 0.6 % 0-1 [facility] Chloride [Moles/Vol] 108 mmol/L 98-107 [facility] Eosinophils/100 WBC (Bld) 0.9 % 0-5 [facility] Glucose [Mass/Vol] 100 mg/dL 74-106 [facility] Comment on above: Fasting Glucose resu lt from 100 to 125 mg/dL suggests IMPAIRED HOMEOSTASIS per A.D.A. criteria. Neutrophils (Bld) [#/Vol] 7.1 10*3/uL 2.0-7.7 [facility] Neutrophils/100 WBC (Bld) 66.8 % 47-70 [facility] Potassium [Moles/Vol] 3.5 mmol/L 3.5-5.1 [facility] Sodium [Moles/Vol] 143 mmol/L 136-145 [facility] WBC (Bld) [#/Vol] 10.6 10*3/uL 4.4-11.0 [facility] Blood erythrocytes count (nu mber/volume)Ordered By: ED PROVIDER on 03-30-2023 RBC (Bld) [#/Vol] 4.76 10*6/uL 4.2-5.4 [facility] Blood hemoglobin measurement (mass/volume)Ordered By: ED PROVIDER on 03-30-2023 Hemoglobin (Bld) [Mass/Vol] 14.1 g/dL 12.0-15.0 [facility] Blood lymphocytes/100 leukoc ytesOrdered By: ED PROVIDER on 03-30-2023 Lymphocytes/100 WBC (Bld) 24.5 % 19-41 [facility] Blood monocytes/100 leukocyt esOrdered By: ED PROVIDER on 03-30-2023 Monocytes/100 WBC (Bld) 6.9 % 0-10 [facility] Blood platelet mean volumeOr dered By: ED PROVIDER on 03-30-2023 Platelet mean volume (Bld) [Entitic vol] 9.2 fL 6.2-12.0 [facility] Determination of erythrocyte mean corpuscular volume (MCV)Ordered By: ED PROVIDER on 03-30-2023 MCV (RBC) [Entitic vol] 91.6 fL 81-99 [facility] Hematocrit Auto (Bld) [Volum e fraction]Ordered By: ED PROVIDER on 03-30-2023 Hematocrit (Bld) [Volume fraction] 43.6 % 37-47 [facility] INR in Blood by Coagulation assayOrdered By: ED PROVIDER on 03-30-2023 INR Coag (Bld) [Relative time] 1.0 {INR} [facility] Laboratory - Chemistry and C hemistry - challengeOrdered By: ED PROVIDER on 03-30-2023 CO2 [Moles/Vol] 27.0 mmol/L 21.0-32.0 [facility] Urea nitrogen/Creatinine [Mass ratio] 19.0 mg/mg 10-20 [facility] Laboratory - CoagulationOrde red By: ED PROVIDER on 03-30-2023 aPTT Coag (Bld) [Time] 28.1 s 24.1-36.2 [facility] PT Coag (PPP) [Time] 13.2 s 11.7-14.9 [facility] Laboratory - Hematology and Cell countsOrdered By: ED PROVIDER on 03-30-2023 Erythrocyte distribution width (RBC) [Entitic vol] 42.2 fL 35.1-43.9 [facility] Erythrocyte distribution width (RBC) [Ratio] 12.5 % 11.6-14.6 [facility] Immature granulocytes/100 WBC (Bld) 0.300 % 0.0-0.9 [facility] Comment on above: IG% - Immature Granu locytes (promyelocytes, myelocytes and metamyelocytes) > 1% indicates that a LEFT SHIFT is Present. MCH (RBC) [Entitic mass] 29.6 pg 27.0-32.0 [facility] Nucleated RBC/100 WBC (Bld) [Ratio] 0 % 0-5 [facility] MCHC Auto (RBC) [Mass/Vol]Or dered By: ED PROVIDER on 03-30-2023 MCHC (RBC) [Mass/Vol] 32.3 g/dL 32-36 [facility] No Panel InformationOrdered By: ED PROVIDER on 03-30-2023 Estimated Creatinine Clearance Calc 31.15 ml/min [facility] Estimated GFR (MDRD) Amer 97 mL/min >60 [facility] Comment on above: GFR Calc Estimated GFR (MDRD) Non-Af Amer 80 mL/min >60 [facility] Comment on above: Non- GFR Calc No Panel InformationOrdered By: Dick Love on 03-30-2023 Troponin I High Sensitivity 4 pg/mL 3.0-54.0 [facility] Comment on above: Please Note: New [place] t Units and Gender Specific Reference Ranges. For more information see Policy Stat Procedure [place] High Sensitivity Troponin (TNIH) and attachments. Platelets bldOrdered By: ED PROVIDER on 03-30-2023 Platelets (Bld) [#/Vol] 328 10*3/uL 150-450 [facility] Serum or plasma calcium froylan urement (mass/volume)Ordered By: ED PROVIDER on 03-30-2023 Calcium [Mass/Vol] 9.5 mg/dL 8.5-10.1 [facility] Serum or plasma creatinine m easurement (mass/volume)Ordered By: ED PROVIDER on 03-30-2023 Creatinine [Mass/Vol] 0.74 mg/dL 0.55-1.02 [facility] Comment on above: The validity of the calculated GFR & GFRAA in patients over 70 years has not been determined. Clinical correlation is essential. Serum or plasma urea nitroge n measurement (mass/volume)Ordered By: ED PROVIDER on 03-30-2023 Urea nitrogen [Mass/Vol] 14 mg/dL 7-18 [facility] Thin prep Papanicolaou smear with manual screeningOrdered By: ED PROVIDER on 03-30-2023 Thin prep Papanicolaou smear with manual screening 8 5-15 [facility] Absolute lymphocyte countOrd ered By: Dr. Sarabia on 03-07-2023 Lymphocytes Auto (Unsp spec) [#/Vol] 1.53 10*3/uL 0.83-4.51 [facility] Basophil percentageOrdered B y: Dr. Sarabia on 03-07-2023 Basophils/100 WBC (Bld) 0.5 % 0-1 [facility] Chloride [Moles/Vol] 106 mmol/L 98-107 [facility] Eosinophils/100 WBC (Bld) 2.4 % 0-5 [facility] Glucose [Mass/Vol] 296 mg/dL 74-106 [facility] Comment on above: Glucose result great er than or equal to 200 mg/dLsuggests DIABETES MELLITUS per A.D.A. criteria. Neutrophils (Bld) [#/Vol] 5.2 10*3/uL 2.0-7.7 [facility] Neutrophils/100 WBC (Bld) 68.3 % 47-70 [facility] Potassium [Moles/Vol] 4.0 mmol/L 3.5-5.1 [facility] Sodium [Moles/Vol] 137 mmol/L 136-145 [facility] WBC (Bld) [#/Vol] 7.6 10*3/uL 4.4-11.0 [facility] Blood erythrocytes count (nu mber/volume)Ordered By: Dr. Sarabia on 03-07-2023 RBC (Bld) [#/Vol] 4.11 10*6/uL 4.2-5.4 [facility] Blood hemoglobin measurement (mass/volume)Ordered By: Dr. Sarabia on 03-07-2023 Hemoglobin (Bld) [Mass/Vol] 12.1 g/dL 12.0-15.0 [facility] Blood lymphocytes/100 leukoc ytesOrdered By: Dr. Sarabia on 03-07-2023 Lymphocytes/100 WBC (Bld) 20.2 % 19-41 [facility] Blood monocytes/100 leukocyt esOrdered By: Dr. Sarabia on 03-07-2023 Monocytes/100 WBC (Bld) 8.3 % 0-10 [facility] Blood platelet mean volumeOr dered By: Dr. Sarabia on 03-07-2023 Platelet mean volume (Bld) [Entitic vol] 12.6 fL 6.2-12.0 [facility] Determination of erythrocyte mean corpuscular volume (MCV)Ordered By: Dr. Sarabia on 03-07-2023 MCV (RBC) [Entitic vol] 92.0 fL 81-99 [facility] Hematocrit Auto (Bld) [Volum e fraction]Ordered By: Dr. Sarabia on 03-07-2023 Hematocrit (Bld) [Volume fraction] 37.8 % 37-47 [facility] Laboratory - Chemistry and C hemistry - challengeOrdered By: Dr. Sarabia on 03-07-2023 CO2 [Moles/Vol] 25.0 mmol/L 21.0-32.0 [facility] Urea nitrogen/Creatinine [Mass ratio] 17.3 mg/mg 10-20 [facility] Laboratory - Hematology and Cell countsOrdered By: Dr. Sarabia on 03-07-2023 Erythrocyte distribution width (RBC) [Entitic vol] 43.9 fL 35.1-43.9 [facility] Erythrocyte distribution width (RBC) [Ratio] 13.1 % 11.6-14.6 [facility] Immature granulocytes/100 WBC (Bld) 0.300 % 0.0-0.9 [facility] Comment on above: IG% - Immature Granu locytes (promyelocytes, myelocytes and metamyelocytes) > 1% indicates that a LEFT SHIFT is Present. MCH (RBC) [Entitic mass] 29.4 pg 27.0-32.0 [facility] Nucleated RBC/100 WBC (Bld) [[facility]] 0 % [facility] [Mass/Vol]Or dered By: Dr. Sarabia on 03-07-2023 MCHC (RBC) [Mass/Vol] 32.0 g/dL 32-36 [facility] No Panel InformationOrdered By: Dr. Sarabia on 03-07-2023 Estimated GFR (MDRD) Amer 81 mL/min >60 [facility] Comment on above: GFR Calc Estimated GFR (MDRD) Non-Af Amer 67 mL/min >60 [facility] Comment on above: Non- GFR Calc Platelets bldOrdered By: Dr. Sarabia on 03-07-2023 Platelets (Bld) [#/Vol] 218 10*3/uL 150-450 [facility] Serum or plasma calcium froylan urement (mass/volume)Ordered By: Dr. Sarabia on 03-07-2023 Calcium [Mass/Vol] 9.7 mg/dL 8.5-10.1 [facility] Serum or plasma creatinine m easurement (mass/volume)Ordered By: Dr. Sarabia on 03-07-2023 Creatinine [Mass/Vol] 0.87 mg/dL 0.55-1.02 [facility] Comment on above: The validity of the calculated GFR & GFRAA in patients over 70 years has not been determined. Clinical correlation is essential. Serum or plasma urea nitroge n measurement (mass/volume)Ordered By: Dr. Sarabia on 03-07-2023 Urea nitrogen [Mass/Vol] 15 mg/dL 7-18 [facility] Thin prep Papanicolaou smear with manual screeningOrdered By: Dr. Sarabia on 03-07-2023 Thin prep Papanicolaou smear with manual screening 6 5-[address] [facility] [address] PELVIS W IVCONon 02-14-20 [facility] UA DIP, URINE (POC)on 2022 BILIRUBIN UA (POCT) Negative Negative [facility] CLARITY UA (POCT) Slightly Cloudy Cl [facility] COLOR UA (POCT) Yellow [facility] GLUCOSE UA (POCT) Negative Negative mg/dL [facility] HEMOGLOBIN/BLOOD UA (POCT) Trace-intact Abnormal Negative [facility] KETONE UA (POCT) Negative Negative mg/dL [facility] LEUKOCYTES UA (POCT) Negative Negative [facility] NITRITE UA (POCT) Negative Negative [facility] PH UA (POCT) 6.5 4.5 - 8.0 [facility] Protein Ql (U) Negative Negative mg/dL [facility] SPECIFIC GRAVITY UA (POCT) <=1.005 Abnormal 1.005 - 1.030 [facility] UROBILINOGEN UA (POCT) 0.2 E.U./dL Kyara l E.U./dL [facility] CT CHEST WO IVCONon 11-20-19 [facility] No Panel Informationon 11-16 [facility] XR Chest PA and Lateralon IMPRESSION: Findings as discussed under Results portion of report. . Supervisor Billposting: AMBER Transcribe Date/Time: Oct 29 2022 7:55A Dictated by : ALEKSANDR ESPARZA DO This examination was interpreted and the report reviewed and electronically signed by: ALEKSANDR ESPARZA DO on Oct 29 2022 7:57AM [facility] DIVISION OF RADIOLOGY * * *Final Report* * * DATE OF EXAM: Oct 26 2022 2:39PM WOX [id number] - XR CHEST 2V FRONTAL/LAT / PROCEDURE REASON: Cough, unspecified type * * * * Physician Interpretation * * * * EXAMINATION: CHEST RADIOGRAPH (2 VIEW FRONTAL & LATERAL) CLINICAL HISTORY: Cough, unspecified type MQ: XC2_6 EXAM DATE/TIME: 10/26/2022 2:39 PM COMPARISON: No relevant prior studies available. RESULT: Lines, tubes, and devices: None. Lungs and pleura: Some linear and curvilinear densities in the RIGHT lung base and RIGHT perihilar region. These may represent scarring or atelectasis No lung mass. No pleural effusion. No pneumothorax. Cardiomediastinal silhouette: Normal cardiomediastinal silhouette. Bones and soft tissues: Unremarkable. DIVISION OF RADIOLOGY Provider, [facility] - 10/29/2022 * * *Final Report* * * DATE OF EXAM: Oct 26 2022 2:39PM WOX [id number] - XR CHEST 2V FRONTAL/LAT / PROCEDURE REASON: Cough, unspecified type * * * * Physician Interpretation * * * * EXAMINATION: CHEST RADIOGRAPH (2 VIEW FRONTAL & LATERAL) CLINICAL HISTORY: Cough, unspecified type MQ: XC2_6 EXAM DATE/TIME: 10/26/2022 2:39 PM COMPARISON: No relevant prior studies available. RESULT: Lines, tubes, and devices: None. Lungs and pleura: Some linear and curvilinear densities in the RIGHT lung base and RIGHT perihilar region. These may represent scarring or atelectasis No lung mass. No pleural effusion. No pneumothorax. Cardiomediastinal silhouette: Normal cardiomediastinal silhouette. Bones and soft tissues: Unremarkable. IMPRESSION IMPRESSION: Findings as discussed under Results portion of report. . Supervisor Billposting: AMBER Transcribe Date/Time: Oct 29 2022 7:55A Dictated by : ALEKSANDR ESPARZA DO This examination was interpreted and the report reviewed and electronically signed by: ALEKSANDR ESPARZA DO on Oct 29 2022 7:57AM EST [facility] XR Chest PA and LateralOrder ed By: [facility] Provider on 10-29-2022 [facility] XR CHEST 2V FRONTAL/LATon [facility] XR Chest PA and Lateralon Radiology Study observation (narrative) [facility] No Panel Informationon 10-12 [facility] SPIROMETRY - BASELINE AND PO ST DILATORon 10-12-2022 DLCO (ml/min/mmHg) 14.01 ml/min/mmHg [facility] DLCO/VA (ml/min/mmHg/L) 3.28 ml/min/mmHg/L [facility] ERV BOX (L) 0.45 L [facility] PPS87-07% POST (L/S) 1.24 L/S [facility] [id number]% PRE (L/S) 0.82 L/S [facility] land [facility] FEV1 PRE (L) 1.58 L [facility] FEV1/FVC POST (%) 74 % [facility] nd [facility] FEV1/FVC PRE (%) 64 % [facility] FEV1_POST (L) 1.71 L [facility] FRC Box (L) 2.56 L [facility] FVC POST (L) 2.31 L [facility] FVC PRE (L) 2.47 L [facility] IC BOX (L) 1.83 L [facility] PEF POST (L/S) 3.00 L/S [facility] PEF PRE (L/S) 3.13 L/S [facility] RV Box (L) 1.99 L [facility] RV/TLC Box (%) 47 % [facility] TLC Box (L) 4.27 L [facility] VA (L) 4.27 L [facility] VC (L) BOX 2.29 L [facility] Vital Signs Date Time Vital Sign Value Performing Clinician Facility 05-25-2025 12:03-0400 Body mass index (BMI) [Ratio] 30.08 kg/m2 Juan Miguel Yusuf MD Work Phone: [facility] 05-25-2025 12:03-0400 Body temperature 98.49 [degF] Juan Miguel Yusuf MD Work Phone: [facility] 05-25-2025 12:03-0400 Body weight 69.85 kg Juan Miguel Yusuf MD Work Phone: [facility] 05-25-2025 12:03-0400 Diastolic blood pressure 69 mm[Hg] Juan Miguel Yusuf MD Work Phone: [facility] 05-25-2025 12:03-0400 Heart rate 73 /min Juan Miguel Yusuf MD Work Phone: [facility] 05-25-2025 12:03-0400 SaO2% (BldA) [Mass fraction] 98 % Juan Miguel Yusuf MD Work Phone: [facility] 05-25-2025 12:03-0400 Systolic blood pressure 140 mm[Hg] Juan Miguel Yusuf MD Work Phone: [facility] 04-06-2025 14:07-0400 Body height 152.4 cm Ayaz Nguyễn MD Work Phone: [facility] 04-06-2025 14:07-0400 Body mass index (BMI) [Ratio] 29.29 kg/m2 Ayaz Nguyễn MD Work Phone: [facility] 04-06-2025 14:07-0400 Body weight 68.04 kg Ayaz Nguyễn MD Work Phone: [facility] 03-30-2025 13:48-0400 Body mass index (BMI) [Ratio] 29.69 kg/m2 Henok Martinez MD Work Phone: [facility] 03-30-2025 13:48-0400 Body weight 68.95 kg Henok Martinez MD Work Phone: [facility] 03-30-2025 13:48-0400 Diastolic blood pressure 68 mm[Hg] Henok Martinez MD Work Phone: [facility] 03-30-2025 13:48-0400 Heart rate 84 /min Henok Martinez MD Work Phone: [facility] 03-30-2025 13:48-0400 SaO2% (BldA) [Mass fraction] 98 % Henok Martinez MD Work Phone: [facility] 03-30-2025 13:48-0400 Systolic blood pressure 118 mm[Hg] Henok Martinez MD Work Phone: [facility] 02-24-2025 10:57-0400 Body mass index (BMI) [Ratio] 28.9 kg/m2 Henok Martinez MD Work Phone: [facility] 02-24-2025 10:57-0400 Body weight 67.13 kg Henok Martinez MD Work Phone: [facility] 02-24-2025 10:57-0400 Diastolic blood pressure 72 mm[Hg] Henok Martinez MD Work Phone: [facility] 02-24-2025 10:57-0400 Heart rate 77 /min Henok Martinez MD Work Phone: [facility] 02-24-2025 10:57-0400 SaO2% (BldA) [Mass fraction] 99 % Henok Martinez MD Work Phone: [facility] 02-24-2025 10:57-0400 Systolic blood pressure 118 mm[Hg] Henok Martinez MD Work Phone: [facility] 02-22-2025 10:00-0400 Body mass index (BMI) [Ratio] 29.39 kg/m2 Lab/Port Wstr Work Phone: [facility] 02-22-2025 10:00-0400 Body weight 68.27 kg Lab/Port Wstr Work Phone: [facility] 02-05-2025 09:19-0400 Body mass index (BMI) [Ratio] 30.17 kg/m2 Treatment Wstr Work Phone: [facility] 02-05-2025 09:19-0400 Body temperature 98.6 [degF] Treatment Wstr Work Phone: [facility] 02-05-2025 09:19-0400 Body weight 70.08 kg Treatment Wstr Work Phone: [facility] 02-05-2025 09:19-0400 Diastolic blood pressure 76 mm[Hg] Treatment Wstr Work Phone: [facility] 02-05-2025 09:19-0400 Heart rate 80 /min Treatment Wstr Work Phone: [facility] 02-05-2025 09:19-0400 SaO2% (BldA) [Mass fraction] 97 % Treatment Wstr Work Phone: [facility] 02-05-2025 09:19-0400 Systolic blood pressure 145 mm[Hg] Treatment Wstr Work Phone: [facility] 02-04-2025 10:35-0400 Body height 152.4 cm Ayaz Nguyễn MD Work Phone: [facility] 02-04-2025 10:35-0400 Body mass index (BMI) [Ratio] 29.49 kg/m2 Ayaz Nguyễn MD Work Phone: [facility] 02-04-2025 10:35-0400 Body weight 68.49 kg Ayaz Nguyễn MD Work Phone: [facility] 02-04-2025 10:35-0400 Diastolic blood pressure 60 mm[Hg] Ayaz Nguyễn MD Work Phone: [facility] 02-04-2025 10:35-0400 Heart rate 70 /min Ayaz Nguyễn MD Work Phone: [facility] 02-04-2025 10:35-0400 SaO2% (BldA) [Mass fraction] 97 % Ayaz Nguyễn MD Work Phone: [facility] 02-04-2025 10:35-0400 Systolic blood pressure 106 mm[Hg] Ayaz Nguyễn MD Work Phone: [facility] 02-01-2025 10:48-0400 Body mass index (BMI) [Ratio] 29.11 kg/m2 Henok Martinez MD Work Phone: [facility] 02-01-2025 10:48-0400 Body temperature 98.8 [degF] Henok Martinez MD Work Phone: [facility] 02-01-2025 10:48-0400 Body weight 68.49 kg Henok Martinez MD Work Phone: [facility] 02-01-2025 10:48-0400 Diastolic blood pressure 62 mm[Hg] Henok Martinez MD Work Phone: [facility] 02-01-2025 10:48-0400 Heart rate 79 /min Henok Martinez MD Work Phone: [facility] 02-01-2025 10:48-0400 SaO2% (BldA) [Mass fraction] 99 % Henok Martinez MD Work Phone: [facility] 02-01-2025 10:48-0400 Systolic blood pressure 102 mm[Hg] Henok Martinez MD Work Phone: [facility] 01-28-2025 11:08-0400 Body height 153.4 cm Treatment Wstr Work Phone: [facility] 01-28-2025 11:08-0400 Body mass index (BMI) [Ratio] 28.62 kg/m2 Treatment Wstr Work Phone: [facility] 01-28-2025 11:08-0400 Body temperature 99 [degF] Treatment Wstr Work Phone: [facility] 01-28-2025 11:08-0400 Body weight 67.36 kg Treatment Wstr Work Phone: [facility] 01-28-2025 11:08-0400 Diastolic blood pressure 67 mm[Hg] Treatment Wstr Work Phone: [facility] 01-28-2025 11:08-0400 Heart rate 69 /min Treatment Wstr Work Phone: [facility] 01-28-2025 11:08-0400 SaO2% (BldA) [Mass fraction] 100 % Treatment Wstr Work Phone: [facility] 01-28-2025 11:08-0400 Systolic blood pressure 113 mm[Hg] Treatment Wstr Work Phone: [facility] 01-25-2025 08:30-0400 Body height 152.5 cm Juan Miguel Yusuf MD Work Phone: [facility] 01-25-2025 08:30-0400 Body mass index (BMI) [Ratio] 29.26 kg/m2 Juan Miguel Yusuf MD Work Phone: [facility] 01-25-2025 08:30-0400 Body temperature 99 [degF] Juan Miguel Yusuf MD Work Phone: [facility] 01-25-2025 08:30-0400 Body weight 68.04 kg Juan Miguel Yusuf MD Work Phone: [facility] 01-25-2025 08:30-0400 Diastolic blood pressure 74 mm[Hg] Juan Miguel Yusuf MD Work Phone: [facility] 01-25-2025 08:30-0400 Heart rate 110 /min Juan Miguel Yusuf MD Work Phone: [facility] 01-25-2025 08:30-0400 SaO2% (BldA) [Mass fraction] 99 % Juan Miguel Yusuf MD Work Phone: [facility] 01-25-2025 08:30-0400 Systolic blood pressure 133 mm[Hg] Juan Miguel Yusuf MD Work Phone: [facility] 01-14-2025 21:17-0400 Diastolic blood pressure 68 mm[Hg] Dr. Henok Martinez MD Work Phone: 6(838)675-239183 [place] [address] 01-14-2025 21:17-0400 Heart rate 75 /min Dr. Henok Martinez MD Work Phone: 2(247)204-233746 [place] [address] 01-14-2025 21:17-0400 Systolic blood pressure 136 mm[Hg] Dr. Henok Martinez MD Work Phone: 6(735)715-933746 [place] [address] 01-14-2025 20:00-0400 Body temperature 98 [degF] Dr. Henok Martinez MD Work Phone: 5(543)319-807846 [place] [address] 01-14-2025 20:00-0400 Respiratory rate 16 /min Dr. Henok Martinez MD Work Phone: 7(922)117-267746 [place] [address] 01-14-2025 20:00-0400 SaO2% (BldA) [Mass fraction] 97 % Dr. Henok Martinez MD Work Phone: 4(332)256-048846 [place] [address] 01-14-2025 06:00-0400 Body mass index (BMI) [Ratio] 29.7 kg/m2 Dr. Henok Martinez MD Work Phone: 4(695)674-282146 [place] [address] 01-14-2025 06:00-0400 Body weight 68.[address] Henok Martinez MD Work Phone: 3(842)586-739546 [place] [address] 01-13-2025 11:06-0400 Body height 152.[address] Henok Martinez MD Work Phone: 0(053)460-440246 [place] [address] 01-10-2025 01:10-0400 Body temperature 97.9 [degF] Dr. Henok Martinez MD Work Phone: 3(032)016-499846 [place] [address] 01-10-2025 01:10-0400 Diastolic blood pressure 90 mm[Hg] Dr. Henok Martinez MD Work Phone: 9(731)095-208946 [place] [address] 01-10-2025 01:10-0400 Heart rate 86 /min Dr. Henok Martinez MD Work Phone: [facility] 01-10-2025 01:10-0400 Respiratory rate 22 /min Dr. Henok Martinez MD Work Phone: [facility] 01-10-2025 01:10-0400 SaO2% (BldA) [Mass fraction] 96 % Dr. Henok Martinez MD Work Phone: [facility] 01-10-2025 01:10-0400 Systolic blood pressure 158 mm[Hg] Dr. Henok Martinez MD Work Phone: [facility] 01-09-2025 18:39-0400 Body height 152.[address] Henok Martinez MD Work Phone: [facility] 01-09-2025 18:39-0400 Body mass index (BMI) [Ratio] 29.4 kg/m2 Dr. Henok Martinez MD Work Phone: [facility] 01-09-2025 18:39-0400 Body weight 68.[address] Henok Martinez MD Work Phone: [facility] 11-17-2024 12:52-0500 Diastolic blood pressure 62 mm[Hg] Angelia Click LEAD JAVA SOFTWARE ENGINEER.POLE INCISOR OPERATOR Work Phone: [facility] 11-17-2024 12:52-0500 Heart rate 72 /min Angelia Click LEAD JAVA SOFTWARE ENGINEER.POLE INCISOR OPERATOR Work Phone: [facility] 11-17-2024 12:52-0500 Respiratory rate 16 /min Angelia Click LEAD JAVA SOFTWARE ENGINEER.POLE INCISOR OPERATOR Work Phone: [facility] 11-17-2024 12:52-0500 Systolic blood pressure 104 mm[Hg] Angelia Click LEAD JAVA SOFTWARE ENGINEER.POLE INCISOR OPERATOR Work Phone: [facility] 11-04-2024 15:14-0500 Body height 149.9 cm Henok Martinez MD Work Phone: [facility] 11-04-2024 15:14-0500 Body mass index (BMI) [Ratio] 32.11 kg/m2 Henok Martinez MD Work Phone: [facility] 11-04-2024 15:14-0500 Body weight 72.12 kg Henok Martinez MD Work Phone: [facility] 11-04-2024 15:14-0500 Diastolic blood pressure 50 mm[Hg] Henok Martinez MD Work Phone: [facility] 11-04-2024 15:14-0500 Heart rate 81 /min Henok Martinez MD Work Phone: [facility] 11-04-2024 15:14-0500 SaO2% (BldA) [Mass fraction] 98 % Henok Martinez MD Work Phone: [facility] 11-04-2024 15:14-0500 Systolic blood pressure 110 mm[Hg] Henok Martinez MD Work Phone: [facility] 10-13-2024 14:44-0500 Body mass index (BMI) [Ratio] 32.72 kg/m2 Virginia Suppan LEAD JAVA SOFTWARE ENGINEER.POLE INCISOR OPERATOR Work Phone: [facility] 10-13-2024 14:44-0500 Body temperature 99.3 [degF] Virginia Suppan LEAD JAVA SOFTWARE ENGINEER.POLE INCISOR OPERATOR Work Phone: [facility] 10-13-2024 14:44-0500 Body weight 73.48 kg Virginia Suppan LEAD JAVA SOFTWARE ENGINEER.POLE INCISOR OPERATOR Work Phone: [facility] 10-13-2024 14:44-0500 Diastolic blood pressure 68 mm[Hg] Virginia Suppan LEAD JAVA SOFTWARE ENGINEER.POLE INCISOR OPERATOR Work Phone: [facility] 10-13-2024 14:44-0500 Heart rate 67 /min Virginia Suppan LEAD JAVA SOFTWARE ENGINEER.POLE INCISOR OPERATOR Work Phone: [facility] 10-13-2024 14:44-0500 Respiratory rate 16 /min Virginia Suppan LEAD JAVA SOFTWARE ENGINEER.POLE INCISOR OPERATOR Work Phone: [facility] 10-13-2024 14:44-0500 SaO2% (BldA) [Mass fraction] 97 % Virginia Suppan LEAD JAVA SOFTWARE ENGINEER.POLE INCISOR OPERATOR Work Phone: [facility] 10-13-2024 14:44-0500 Systolic blood pressure 124 mm[Hg] Virginia Reina LEAD JAVA SOFTWARE ENGINEER.POLE INCISOR OPERATOR Work Phone: [facility] 07-01-2024 16:04-0400 Body height 149.9 cm Henok Martinez MD Work Phone: [facility] 07-01-2024 16:04-0400 Body mass index (BMI) [Ratio] 32.72 kg/m2 Henok Martinez MD Work Phone: [facility] 07-01-2024 16:04-0400 Body weight 73.48 kg Henok Maritnez MD Work Phone: [facility] 07-01-2024 16:04-0400 Diastolic blood pressure 56 mm[Hg] Henok Martinez MD Work Phone: [facility] 07-01-2024 16:04-0400 Heart rate 76 /min Henok Martinez MD Work Phone: [facility] 07-01-2024 16:04-0400 SaO2% (BldA) [Mass fraction] 99 % Henok Martinez MD Work Phone: [facility] 07-01-2024 16:04-0400 Systolic blood pressure 124 mm[Hg] Henok Martinez MD Work Phone: [facility] 06-05-2024 11:34-0400 Body mass index (BMI) [Ratio] 32.72 kg/m2 Nancy Medley MD Work Phone: [facility] 06-05-2024 11:34-0400 Body weight 73.48 kg Nancy Medley MD Work Phone: [facility] 05-01-2024 15:44-0400 Body mass index (BMI) [Ratio] 33.53 kg/m2 Henok Martinez MD Work Phone: [facility] 05-01-2024 15:44-0400 Body weight 75.3 kg Henok Martinez MD Work Phone: [facility] 05-01-2024 15:44-0400 Diastolic blood pressure 70 mm[Hg] Henok Martinez MD Work Phone: [facility] 05-01-2024 15:44-0400 Heart rate 64 /min Henok Martinez MD Work Phone: [facility] 05-01-2024 15:44-0400 SaO2% (BldA) [Mass fraction] 99 % Henok Martinez MD Work Phone: [facility] 05-01-2024 15:44-0400 Systolic blood pressure 122 mm[Hg] Henok Martinez MD Work Phone: [facility] 03-04-2024 14:15-0400 Body height 149.9 cm Henok Martinez MD Work Phone: [facility] 03-04-2024 14:15-0400 Body mass index (BMI) [Ratio] 31.1 kg/m2 Henok Martinez MD Work Phone: [facility] 03-04-2024 14:15-0400 Body temperature 98.91 [degF] Henok Martinez MD Work Phone: [facility] 03-04-2024 14:15-0400 Body weight 69.85 kg Henok Martinez MD Work Phone: [facility] 03-04-2024 14:15-0400 Diastolic blood pressure 60 mm[Hg] Henok Martinez MD Work Phone: [facility] 03-04-2024 14:15-0400 Heart rate 91 /min Henok Martinez MD Work Phone: [facility] 03-04-2024 14:15-0400 SaO2% (BldA) [Mass fraction] 97 % Henok Martinez MD Work Phone: [facility] 03-04-2024 14:15-0400 Systolic blood pressure 110 mm[Hg] Henok Martinez MD Work Phone: [facility] 02-25-2024 16:00-0400 Heart rate 113 /min Dr. Henok Martinez Work Phone: [facility] 02-25-2024 16:00-0400 Respiratory rate 22 /min Dr. Henok Martinez Work Phone: [facility] 02-25-2024 15:52-0400 Body mass index (BMI) [Ratio] 31.5 kg/m2 Dr. Henok Martinez Work Phone: [facility] 02-25-2024 15:52-0400 Body weight 72.[address] Henok Martinez Work Phone: [facility] 02-25-2024 14:36-0400 Body height 152.[address] Henok Martinez Work Phone: [facility] 02-25-2024 14:36-0400 Body temperature 99.6 [degF] Dr. Henok Martinez Work Phone: [facility] 02-25-2024 14:36-0400 Diastolic blood pressure 77 mm[Hg] Dr. Henok Martinez Work Phone: [facility] 02-25-2024 14:36-0400 SaO2% (BldA) [Mass fraction] 97 % Dr. Henok Martinez Work Phone: [facility] 02-25-2024 14:36-0400 Systolic blood pressure 158 mm[Hg] Dr. Henok Martinez Work Phone: [facility] 02-19-2024 12:39-0400 Body mass index (BMI) [Ratio] 33.13 kg/m2 Lana Alanis APRN.POLE INCISOR OPERATOR Work Phone: [facility] 02-19-2024 12:39-0400 Body temperature 99.39 [degF] Lana Alanis APRN.POLE INCISOR OPERATOR Work Phone: [facility] 02-19-2024 12:39-0400 Body weight 74.4 kg Lana Alanis APRN.POLE INCISOR OPERATOR Work Phone: [facility] 02-19-2024 12:39-0400 Diastolic blood pressure 72 mm[Hg] Lana Alanis APRN.POLE INCISOR OPERATOR Work Phone: [facility] 02-19-2024 12:39-0400 Heart rate 74 /min Lana Alanis LEAD JAVA SOFTWARE ENGINEER.POLE INCISOR OPERATOR Work Phone: [facility] 02-19-2024 12:39-0400 Respiratory rate 16 /min Lana Alanis LEAD JAVA SOFTWARE ENGINEER.POLE INCISOR OPERATOR Work Phone: [facility] 02-19-2024 12:39-0400 SaO2% (BldA) [Mass fraction] 99 % Lana Alanis LEAD JAVA SOFTWARE ENGINEER.POLE INCISOR OPERATOR Work Phone: [facility] 02-19-2024 12:39-0400 Systolic blood pressure 122 mm[Hg] Lana Alanis LEAD JAVA SOFTWARE ENGINEER.POLE INCISOR OPERATOR Work Phone: [facility] 02-07-2024 10:58-0400 Body temperature 98.1 [degF] Fazal Nathanielmarcusnatalia LEAD JAVA SOFTWARE ENGINEER.POLE INCISOR OPERATOR Work Phone: [facility] 02-07-2024 10:58-0400 Body weight 73.4 kg Fazal Armstrongmarcusnatalia LEAD JAVA SOFTWARE ENGINEER.POLE INCISOR OPERATOR Work Phone: [facility] 02-07-2024 10:58-0400 Diastolic blood pressure 72 mm[Hg] Fazal Nathanielmarcusnatalia LEAD JAVA SOFTWARE ENGINEER.POLE INCISOR OPERATOR Work Phone: [facility] 02-07-2024 10:58-0400 Heart rate 68 /min Fazal Thanh LEAD JAVA SOFTWARE ENGINEER.POLE INCISOR OPERATOR Work Phone: [facility] 02-07-2024 10:58-0400 Respiratory rate 16 /min Fazal Nathanielmarcusnatalia LEAD JAVA SOFTWARE ENGINEER.POLE INCISOR OPERATOR Work Phone: [facility] 02-07-2024 10:58-0400 SaO2% (BldA) [Mass fraction] 97 % Fazal Law LEAD JAVA SOFTWARE ENGINEER.POLE INCISOR OPERATOR Work Phone: [facility] 02-07-2024 10:58-0400 Systolic blood pressure 124 mm[Hg] Fazal Law LEAD JAVA SOFTWARE ENGINEER.POLE INCISOR OPERATOR Work Phone: [facility] 12-16-2023 10:07-0500 Body height 149.9 cm Henok Martinez MD Work Phone: [facility] 12-16-2023 10:07-0500 Body weight 74.84 kg Henok Martinez MD Work Phone: [facility] 12-16-2023 10:07-0500 Diastolic blood pressure 52 mm[Hg] Henok Martinez MD Work Phone: [facility] 12-16-2023 10:07-0500 Heart rate 63 /min Henok Martinez MD Work Phone: [facility] 12-16-2023 10:07-0500 SaO2% (BldA) [Mass fraction] 99 % Henok Martinez MD Work Phone: [facility] 12-16-2023 10:07-0500 Systolic blood pressure 110 mm[Hg] Henok Martinez MD Work Phone: [facility] 11-21-2023 09:22-0500 Body mass index (BMI) [Ratio] 31.6 kg/m2 Dr. Henok Martinez Work Phone: [facility] 11-21-2023 09:22-0500 Body weight 73.[address] Henok Martinez Work Phone: [facility] 11-21-2023 09:22-0500 Diastolic blood pressure 78 mm[Hg] Dr. Henok Martinez Work Phone: [facility] 11-21-2023 09:22-0500 Heart rate 65 /min Dr. Henok Martinez Work Phone: [facility] 11-21-2023 09:22-0500 Respiratory rate 16 /min Dr. Henok Martinez Work Phone: [facility] 11-21-2023 09:22-0500 Systolic blood pressure 168 mm[Hg] Dr. Henok Martinez Work Phone: [facility] 09-05-2023 15:39-0500 Body weight 73.48 kg ADRIANNA Muller PA-C Work Phone: [facility] 09-05-2023 15:39-0500 Diastolic blood pressure 70 mm[Hg] ADRIANNA JONES-C Work Phone: [facility] 09-05-2023 15:39-0500 Heart rate 68 /min NA Muller PA-C Work Phone: [facility] 09-05-2023 15:39-0500 Respiratory rate 16 /min NA Muller PA-C Work Phone: [facility] 09-05-2023 15:39-0500 SaO2% (BldA) [Mass fraction] 99 % NA Muller PA-C Work Phone: [facility] 09-05-2023 15:39-0500 Systolic blood pressure 132 mm[Hg] NA Muller PA-C Work Phone: [facility] 07-30-2023 16:21-0400 Body mass index (BMI) [Ratio] 32.5 kg/m2 Dr. Henok Martinez Work Phone: [facility] 07-30-2023 16:21-0400 Body weight 75.[address] Henko Martinez Work Phone: [facility] 07-30-2023 16:21-0400 Diastolic blood pressure 66 mm[Hg] Dr. Henok Martinez Work Phone: [facility] 07-30-2023 16:21-0400 Systolic blood pressure 165 mm[Hg] Dr. Henok Martinez Work Phone: [facility] 07-30-2023 16:01-0400 Body height 152.[address] Henok Martinez Work Phone: [facility] 07-30-2023 16:01-0400 Body temperature 96.3 [degF] Dr. Henok Martinez Work Phone: [facility] 07-30-2023 16:01-0400 Heart rate 72 /min Dr. Henok Martinez Work Phone: [facility] 07-30-2023 16:01-0400 Respiratory rate 18 /min Dr. Henok Martinez Work Phone: [facility] 07-30-2023 16:01-0400 SaO2% (BldA) [Mass fraction] 98 % Dr. Henok Martinez Work Phone: 4(178)885-818383 [place] [address] 06-18-2023 10:31-0400 Body mass index (BMI) [Ratio] 32.5 kg/m2 Dr. Henok Martinez Work Phone: 3(449)596-027246 [place] [address] 06-18-2023 10:31-0400 Body temperature 98.4 [degF] Dr. Henok Martinez Work Phone: 8(688)588-443446 [place] [address] 06-18-2023 10:31-0400 Body weight 75.[address] Henok Martinez Work Phone: 5(787)184-419146 [place] [address] 06-18-2023 10:31-0400 Diastolic blood pressure 70 mm[Hg] Dr. Henok Martinez Work Phone: 8(712)078-661146 [place] [address] 06-18-2023 10:31-0400 Heart rate 83 /min Dr. Henok Martinez Work Phone: 9(597)798-616346 [place] [address] 06-18-2023 10:31-0400 Respiratory rate 17 /min Dr. Henok Martinez Work Phone: 6(818)935-183146 [place] [address] 06-18-2023 10:31-0400 SaO2% (BldA) [Mass fraction] 98 % Dr. Henok Martinez Work Phone: 5(365)485-795246 [place] [address] 06-18-2023 10:31-0400 Systolic blood pressure 150 mm[Hg] Dr. Henok Martinez Work Phone: 6(047)853-274346 [place] [address] 04-22-2023 19:53-0400 Diastolic blood pressure 95 mm[Hg] Dr. Henok Martinez Work Phone: 7(916)183-061446 [place] [address] 04-22-2023 19:53-0400 Systolic blood pressure 174 mm[Hg] Dr. Henok Martinez Work Phone: 1(413)059-228446 [place] [address] 04-22-2023 16:52-0400 Body height 152.[address] Henok Martinez Work Phone: 7(561)703-013146 [place] [address] 04-22-2023 16:52-0400 Body mass index (BMI) [Ratio] 32.8 kg/m2 Dr. Henok Martinez Work Phone: [facility] 04-22-2023 16:52-0400 Body temperature 97 [degF] Dr. Henok Martinez Work Phone: [facility] 04-22-2023 16:52-0400 Body weight 76.[address] Henok Martinez Work Phone: [facility] 04-22-2023 16:52-0400 Heart rate 74 /min Dr. Henok Martinez Work Phone: [facility] 04-22-2023 16:52-0400 Respiratory rate 18 /min Dr. Henok Martinez Work Phone: [facility] 04-22-2023 16:52-0400 SaO2% (BldA) [Mass fraction] 96 % Dr. Henok Martinez Work Phone: [facility] 04-15-2023 13:04-0400 Diastolic blood pressure 96 mm[Hg] Clarita Haagen LEAD JAVA SOFTWARE ENGINEER.POLE INCISOR OPERATOR Work Phone: [facility] 04-15-2023 13:04-0400 Heart rate 77 /min Clarita Haagen LEAD JAVA SOFTWARE ENGINEER.POLE INCISOR OPERATOR Work Phone: [facility] 04-15-2023 13:04-0400 Respiratory rate 16 /min Clarita Haagen LEAD JAVA SOFTWARE ENGINEER.POLE INCISOR OPERATOR Work Phone: [facility] 04-15-2023 13:04-0400 SaO2% (BldA) [Mass fraction] 99 % Clarita Haagen LEAD JAVA SOFTWARE ENGINEER.POLE INCISOR OPERATOR Work Phone: [facility] 04-15-2023 13:04-0400 Systolic blood pressure 144 mm[Hg] Clarita Haagen LEAD JAVA SOFTWARE ENGINEER.POLE INCISOR OPERATOR Work Phone: [facility] 04-05-2023 20:23-0400 Diastolic blood pressure 71 mm[Hg] Dr. Henok Martinez Work Phone: [facility] 04-05-2023 20:23-0400 Heart rate 62 /min Dr. eHnok Martinez Work Phone: [facility] 04-05-2023 20:23-0400 Respiratory rate 15 /min Dr. Henok Martinez Work Phone: [facility] 04-05-2023 20:23-0400 SaO2% (BldA) [Mass fraction] 98 % Dr. Henok Martinez Work Phone: [facility] 04-05-2023 20:23-0400 Systolic blood pressure 148 mm[Hg] Dr. Henok Martinez Work Phone: [facility] 04-05-2023 17:38-0400 Body mass index (BMI) [Ratio] 32.2 kg/m2 Dr. Henok Martinez Work Phone: [facility] 04-05-2023 17:38-0400 Body temperature 97.9 [degF] Dr. Henok Martinez Work Phone: [facility] 04-05-2023 17:38-0400 Body weight 74.[address] Henok Martinez Work Phone: [facility] 04-01-2023 16:07-0400 Body weight 74.84 kg Henok Martinez MD Work Phone: [facility] 04-01-2023 16:07-0400 Diastolic blood pressure 72 mm[Hg] Henok Martinez MD Work Phone: [facility] 04-01-2023 16:07-0400 Heart rate 83 /min Henok Martinez MD Work Phone: [facility] 04-01-2023 16:07-0400 SaO2% (BldA) [Mass fraction] 100 % Henok Martinez MD Work Phone: [facility] 04-01-2023 16:07-0400 Systolic blood pressure 172 mm[Hg] Henok Martinez MD Work Phone: [facility] 03-31-2023 01:31-0400 Body temperature 98.6 [degF] Dr. Henok Martinez Work Phone: [facility] 03-31-2023 01:31-0400 Diastolic blood pressure 61 mm[Hg] Dr. Henok Martinez Work Phone: 7(369)758-078946 [place] [address] 03-31-2023 01:31-0400 Heart rate 74 /min Dr. Henok Martinez Work Phone: 0(745)064-839946 [place] [address] 03-31-2023 01:31-0400 Respiratory rate 16 /min Dr. Henok Martinez Work Phone: 2(041)418-460946 [place] [address] 03-31-2023 01:31-0400 SaO2% (BldA) [Mass fraction] 99 % Dr. Henok Martinez Work Phone: 5(873)079-002946 [place] [address] 03-31-2023 01:31-0400 Systolic blood pressure 120 mm[Hg] Dr. Henok Martinez Work Phone: 2(540)931-314046 [place] [address] 03-30-2023 21:40-0400 Body height 152.[address] Henok Martinez Work Phone: 1(913)357-348646 [place] [address] 03-30-2023 21:40-0400 Body mass index (BMI) [Ratio] 32.8 kg/m2 Dr. Henok Martinez Work Phone: 5(424)501-939446 [place] [address] 03-30-2023 21:40-0400 Body weight 76.[address] Henok Martinez Work Phone: 2(798)399-696646 [place] [address] 03-18-2023 11:33-0400 Body height 152.[address] Henok Martinez Work Phone: 0(948)858-173546 [place] [address] 03-18-2023 11:33-0400 Body weight 78.[address] Henok Martinez Work Phone: 6(666)605-662346 [place] [address] 03-15-2023 09:45-0400 Body mass index (BMI) [Ratio] 33.5 kg/m2 Dr. Henok Martinez Work Phone: 1(512)384-489946 [place] [address] 03-07-2023 08:33-0400 Body height 152.[address] Henok Martinez Work Phone: 0(104)917-450846 [place] [address] 03-07-2023 08:33-0400 Body mass index (BMI) [Ratio] 33.5 kg/m2 Dr. Henok Martinez Work Phone: 4(028)740-015146 [place] [address] 03-07-2023 08:33-0400 Body weight 78.[address] Henok Martinez Work Phone: [facility] 03-07-2023 08:33-0400 Diastolic blood pressure 96 mm[Hg] Dr. Henok Martinez Work Phone: [facility] 03-07-2023 08:33-0400 Heart rate 78 /min Dr. Henok Martinez Work Phone: [facility] 03-07-2023 08:33-0400 Respiratory rate 18 /min Dr. Henok Martinez Work Phone: [facility] 03-07-2023 08:33-0400 Systolic blood pressure 160 mm[Hg] Dr. Henok Martinez Work Phone: [facility] 02-25-2023 13:39-0400 Body height 149.[address] [facility] 02-25-2023 13:39-0400 Body weight 75.[address] [facility] 02-08-2023 15:45-0400 Body weight 75.66 kg Sadia Braulio LEAD JAVA SOFTWARE ENGINEER.POLE INCISOR OPERATOR Work Phone: [facility] 02-08-2023 15:45-0400 Diastolic blood pressure 80 mm[Hg] Sadia Madison LEAD JAVA SOFTWARE ENGINEER.POLE INCISOR OPERATOR Work Phone: [facility] 02-08-2023 15:45-0400 Systolic blood pressure 120 mm[Hg] Sadia Madison LEAD JAVA SOFTWARE ENGINEER.POLE INCISOR OPERATOR Work Phone: [facility] 01-25-2023 14:16-0400 Diastolic blood pressure 70 mm[Hg] Henok Martinez MD Work Phone: [facility] 01-25-2023 14:16-0400 Systolic blood pressure 146 mm[Hg] Henok Martinez MD Work Phone: [facility] 01-25-2023 13:38-0400 Body height 149.9 cm Henok Martinez MD Work Phone: [facility] 03-31-2023 13:38-0400 Body weight 76.75 kg Henok Martinez MD Work Phone: [facility] 01-25-2023 13:38-0400 Heart rate 82 /min Henok Martinez MD Work Phone: [facility] 01-25-2023 13:38-0400 SaO2% (BldA) [Mass fraction] 97 % Henok Martinez MD Work Phone: [facility] 11-23-2022 14:00-0500 Diastolic blood pressure 76 mm[Hg] Mi Nurse Work Phone: [facility] 11-23-2022 14:00-0500 Heart rate 76 /min Mi Nurse Work Phone: [facility] 11-23-2022 14:00-0500 Systolic blood pressure 141 mm[Hg] Mi Nurse Work Phone: [facility] 11-16-2022 13:11-0500 Body weight 75.75 kg Pulm Wstr Work Phone: [facility] 10-26-2022 13:58-0500 Diastolic blood pressure 80 mm[Hg] Henok Martinez MD Work Phone: [facility] 10-26-2022 13:58-0500 Systolic blood pressure 150 mm[Hg] Henok Martinez MD Work Phone: [facility] 10-26-2022 13:34-0500 Body weight 77.11 kg Henok Martinez MD Work Phone: [facility] 10-26-2022 13:34-0500 Heart rate 92 /min Henok Martinez MD Work Phone: [facility] 10-26-2022 13:34-0500 SaO2% (BldA) [Mass fraction] 98 % Henok Martinez MD Work Phone: [facility] 10-12-2022 14:32-0500 Body height 149.9 cm Pulm Wstr Work Phone: [facility] 10-12-2022 14:32-0500 Body weight 75.3 kg Pulm Wstr Work Phone: [facility] 10-12-2022 14:32-0500 Heart rate 76 /min Pulm Wstr Work Phone: [facility] 10-12-2022 14:32-0500 Respiratory rate 12 /min Pulm Wstr Work Phone: [facility] 10-12-2022 14:32-0500 SaO2% (BldA) [Mass fraction] 98 % Pulm Wstr Work Phone: [facility] 10-01-2022 15:27-0500 Body weight 76.66 kg Henok Martinez MD Work Phone: [facility] 10-01-2022 15:27-0500 Diastolic blood pressure 78 mm[Hg] Henok Martinez MD Work Phone: [facility] 10-01-2022 15:27-0500 Heart rate 107 /min Henok Martinez MD Work Phone: [facility] 10-01-2022 15:27-0500 SaO2% (BldA) [Mass fraction] 99 % Henok Martinez MD Work Phone: [facility] 10-01-2022 15:27-0500 Systolic blood pressure 152 mm[Hg] Henok Martinez MD Work Phone: [facility] 09-05-2022 13:42-0500 Body height 154.9 cm Monet Calvo MD Work Phone: [facility] 09-05-2022 13:42-0500 Body temperature 98.4 [degF] Monet Calvo MD Work Phone: [facility] 09-05-2022 13:42-0500 Body weight 76.2 kg Monet Calvo MD Work Phone: [facility] 09-05-2022 13:42-0500 Diastolic blood pressure 94 mm[Hg] Monet Calvo MD Work Phone: [facility] 09-05-2022 13:42-0500 Heart rate 65 /min Monet Calvo MD Work Phone: [facility] 09-05-2022 13:42-0500 SaO2% (BldA) [Mass fraction] 97 % Monet Calvo MD Work Phone: [facility] 09-05-2022 13:42-0500 Systolic blood pressure 148 mm[Hg] Monet Calvo MD Work Phone: [facility] 01-26-2022 12:27-0400 Diastolic blood pressure 60 mm[Hg] Henok Martinez MD Work Phone: [facility] 01-26-2022 12:27-0400 Systolic blood pressure 138 mm[Hg] Henok Martinez MD Work Phone: [facility] 01-26-2022 09:58-0400 Body weight 74.39 kg Henok Martinez MD Work Phone: [facility] 01-26-2022 09:58-0400 Heart rate 60 /min Henok Martinez MD Work Phone: [facility] 01-26-2022 09:58-0400 Respiratory rate 16 /min Henok Martinez MD Work Phone: [facility] Encounters Encounter Date Encounter Type Care Provider Facility Start: 05-26-2025 End: 05-26-2025 [facility] Comment on above: Population Health Na vigation Outreach ( O [facility]EN[facility]END[facility] // ) Start: 05-26-2025 End: 05-26-2025 ambulatory [facility] Start: 05-26-2025 End: 05-26-2025 Subsequent hospital visit by physician Ct Prep [facility] Comment on above: Malignant neoplasm o f head of pancreas (HCC) [C25.0] Start: 05-25-2025 End: 05-25-2025 Telephone encounter Anel Diaz MD Work Phone: Gastroenter[facility] [place] Comment on above: Appointment Start: 05-25-2025 End: 05-25-2025 Patient encounter procedure Juan Miguel Yusuf MD Work Phone: Hematology/Oncology Start: 05-25-2025 End: 05-25-2025 ambulatory Juan Miguel Yusuf MD Work Phone: Hematology/Oncology Comment on above: Malignant neoplasm o f head of pancreas (HCC) (Primary Dx); Adenocarcinoma of head of pancreas (HCC) Start: 05-13-2025 End: 05-20-2025 Telephone encounter Maria Isabel Silverio RN Work Phone: Hematology/Oncology Comment on above: Future Appointment Start: 04-22-2025 End: 04-23-2025 Refill Henok Martinez MD Work Phone: [facility] [place] Comment on above: Refill Request Start: 04-19-2025 End: 04-19-2025 Refill Henok Martinez MD Work Phone: Family [facility] Comment on above: Refill Request Start: 04-12-2025 End: 04-12-2025 Refill Henok Martinez MD Work Phone: [facility] [place] Comment on above: Refill Request Start: 04-08-2025 End: 04-08-2025 Telephone encounter Lamar Stoner MD Work Phone: Radiation Oncology Comment on above: Appointment Start: 04-06-2025 End: 04-06-2025 ambulatory AYAZ NGUYỄN Facility:[facility] Start: 04-06-2025 End: 04-06-2025 Telephone encounter Anel Diaz MD Work Phone: Gastroenterology [place] Comment on above: RUQ pain (Primary Dx ) Start: 04-06-2025 End: 04-06-2025 Office outpatient visit 40 minutes Ayaz Nguyễn MD Work Phone: [facility] Comment on above: Pancreatic adenocarc inoma (HCC) (Primary Dx) Start: 04-01-2025 End: 04-01-2025 [facility] Start: 04-01-2025 End: 04-01-2025 Patient encounter procedure Skyler Bhatia MA [facility] Comment on above: Population Health Na vigation Outreach ( ); Opened In Error Start: 03-30-2025 End: 03-30-2025 Patient encounter procedure Henok Martinez MD Work Phone: [facility] [place] Comment on above: Atrial fibrillation, unspecified type (HCC) (Primary Dx); History of CVA (cerebrovascular accident); Primary hypertension; Hyperlipidemia, unspecified hyperlipidemia type; Bronchiectasis without complication (HCC); Gastroesophageal reflux disease without esophagitis; 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); 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; Type 2 diabetes mellitus with hyperglycemia, with long-term current use of insulin (HCC) Start: 03-30-2025 End: 03-30-2025 ambulatory HENOK MARTINEZ Facility:[facility] Start: 03-19-2025 End: 05-19-2025 Follow-up encounter Henok Martinez MD Work Phone: [facility] Start: 03-18-2025 ambulatory HENOK MARTINEZ Facility :[facility] Start: 03-15-2025 End: 03-15-2025 Telephone encounter Juan Miguel Yusuf MD Work Phone: Hematology/Oncology Comment on above: Patient Update Start: 03-10-2025 End: 03-10-2025 ambulatory Safia Henley RN Work Phone: Apartment [employer]ant Management Comment on above: Primary Care Coordin ator- Other (Chart review) Start: 03-08-2025 End: 03-08-2025 Refill Henok Martinez MD Work Phone: [facility] Comment on above: Refill Request Start: 03-02-2025 End: 03-15-2025 Telephone encounter Juan Miguel Yusuf MD Work Phone: Hematology/Oncology Comment on above: Patient Question Start: 02-24-2025 End: 02-24-2025 Patient encounter procedure Henok Martinez MD Work Phone: [facility] Comment on above: RSV (respiratory syn cytial virus pneumonia) (Primary Dx); Bronchiectasis without complication (HCC); Pancreatic adenocarcinoma (HCC); Type 2 diabetes mellitus with hyperglycemia, with long-term current use of insulin (HCC); Primary hypertension Start: 02-24-2025 End: 02-24-2025 ambulatory HENOK MARTINEZ Facility:[facility] Start: 02-23-2025 End: 02-23-2025 ambulatory Dasha Clemons RN [facility] Radiology Comment on above: You are scheduled fo r a port insertion at [facility] on 03/04 at 12:00 pm Start: 02-23-2025 End: 02-23-2025 E-mail encounter from caregiver Dasha Clemons RN [facility] Radiology Start: 02-23-2025 End: 02-24-2025 Telephone encounter Henok Martinez MD Work Phone: Family [facility] Comment on above: Appt Needs Reschedul ed Medication Request Start: 02-22-2025 End: 02-23-2025 Telephone encounter Maria Isabel Silverio RN Work Phone: Hematology/Oncology Comment on above: Future Appointment Start: 02-22-2025 End: 02-22-2025 Subsequent hospital visit by physician Elysia [facility] Work Phone: Radiology Comment on above: Malignant neoplasm o f head of pancreas (HCC) [C25.0] Start: 02-22-2025 End: 02-22-2025 ambulatory Lab/[place] [facility] Work Phone: Hematology/Oncology Comment on above: Malignant neoplasm o f head of pancreas (HCC) Start: 02-15-2025 End: 02-15-2025 Patient Outreach Paulette Cagle RN [employer] Comment on above: Initial phone contac t for Transitional Care Management [facility] H ospital Follow Up Start: 02-11-2025 End: 02-11-2025 Patient Outreach Devon Bynum RN Work Phone: [employer] Comment on above: Transition Of Care ( Hospital reach in call) Population Health Na vigation Outreach ([facility] Call) Start: 02-10-2025 End: 02-14-2025 Evaluation and management of inpatient [facility] Facility:[facility] Start: 02-09-2025 End: 02-09-2025 Telephone encounter Maria Isabel Silverio RN Work Phone: Hematology/Oncology Comment on above: Care Coordination (F ollow up Note ) Start: 02-08-2025 End: 02-08-2025 Orders Only Pat Pepe RN [facility] Radiology Comment on above: Malignant neoplasm o f head of pancreas (HCC) (Primary Dx) Care Coordination (F ollow Up Note ) Dental Problem Start: 02-05-2025 End: 02-05-2025 Telephone encounter Addison KUMAR Hematology/Oncology Comment on above: Social Work Services ; Psychosocial Assessment Social Work Services ; Family Support Patient Update Patient Question (co ug) Start: 02-05-2025 End: 02-05-2025 ambulatory HENOK MARTINEZ Facility:[facility] Start: 02-05-2025 End: 02-05-2025 Subsequent hospital visit by physician Xr [facility] Work Phone: Radiology Comment on above: Malignant neoplasm o f head of pancreas (HCC) [C25.0] Start: 02-05-2025 End: 02-05-2025 ambulatory Treatment Rm 8 [facility] Work Phone: Hematology/Oncology Comment on above: Malignant neoplasm o f head of pancreas (HCC) (Primary Dx); Dyspnea and respiratory abnormalities Start: 02-04-2025 End: 02-05-2025 Telephone encounter Maria Isabel Silverio RN Work Phone: Hematology/Oncology Comment on above: Care Coordination (F ollow up Note ) Start: 02-04-2025 End: 02-04-2025 Office outpatient visit 40 minutes Ayaz Nguyễn MD Work Phone: [facility] Comment on above: Pancreatic adenocarc inoma (HCC) (Primary Dx) Start: 02-04-2025 End: 02-04-2025 ambulatory AYAZ NGUYỄN Facility:[facility] Start: 02-03-2025 End: 02-03-2025 Telephone encounter Financial Navigator Viraj Work Phone: Hematology/Oncology Comment on above: Benefits Investigati on Start: 02-01-2025 End: 02-01-2025 E-mail encounter from caregiver Dasha Clemons RN [facility] Radiology Start: 02-01-2025 End: 02-01-2025 ambulatory Dasha Clemons RN [facility] Radiology Comment on above: Port placement on read instructions about holding Eliquis Start: 02-01-2025 End: 02-01-2025 Patient encounter procedure Henok Martinez MD Work Phone: [facility] Comment on above: Pancreatic adenocarc inoma (HCC) (Primary Dx); assisted current use of anticoagulant therapy; History of CVA (cerebrovascular accident); Type 2 diabetes mellitus with hyperglycemia, with long-term current use of insulin (HCC); Gastroesophageal reflux disease without esophagitis; Hyperlipidemia, unspecified hyperlipidemia type; Atrial myxoma (HCC); Primary hypertension; Atrial fibrillation, unspecified type (HCC); Type 2 diabetes mellitus without complication, without long-term current use of insulin (HCC); Hyperglycemia; Gastrointestinal hemorrhage, unspecified gastrointestinal hemorrhage type Start: 01-29-2025 End: 01-29-2025 Telephone encounter Henok Martinez MD Work Phone: [facility] Comment on above: glucometer Social Work Services Start: 01-28-2025 End: 01-28-2025 Telephone encounter Addison KUMAR Hematology/Oncology Comment on above: Social Work Services Start: 01-28-2025 End: 01-28-2025 ambulatory Treatment Rm [address] 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 lead teacher [facility] Work Phone: Hematology/Oncology Comment on above: Encounter for educat ion (Primary Dx); 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) Start: 01-26-2025 End: 01-26-2025 ambulatory Stuart Dias RN Apartment Leasing Consultant Management Start: 01-26-2025 End: 01-26-2025 Telephone encounter Henok Martinez MD Work Phone: [facility] Comment on above: Constipation Transition Of Care ( Initial) Initial phone contact for Transitional Care Management Start: 01-25-2025 End: 01-25-2025 Telephone encounter Maria Isabel Silverio RN Work Phone: Hematology/Oncology Comment on above: Care Coordination (I ntroduction/) avs 01/25 Start: 01-25-2025 End: 01-25-2025 ambulatory Juan Miguel Yusuf MD Work Phone: Hematology/Oncology Comment on above: Malignant neoplasm o f head of pancreas (HCC) Start: 01-25-2025 End: 01-25-2025 Patient encounter procedure Juan Miguel Yusuf MD Work Phone: Hematology/Oncology Start: 01-24-2025 End: 01-25-2025 Telephone encounter Amarilys Niño DO Work Phone: Hematology/Oncology Comment on above: Appointment Start: 01-22-2025 End: 01-22-2025 Evaluation and management of inpatient VIN GUERRA Facility:[facility] Start: 01-21-2025 End: 01-21-2025 Telephone encounter Ashutosh Freeman MD Work Phone: [facility] Hematology/Oncology Start: 01-19-2025 End: 01-20-2025 Telephone encounter Henok Martinez MD Work Phone: [facility] Comment on above: diabetic supplies (L ibre 3 CGM system) Start: 01-15-2025 End: 01-15-2025 Evaluation and management of inpatient ADRIÁN SANDHU Facility:[facility] Start: 01-14-2025 End: 01-23-2025 Evaluation and management of inpatient GUILLE BELA GARNICA Facility:[facility] Start: 01-14-2025 Non-patient [facility] Work Phone: Start: 01-13-2025 Non-patient / Non-visit Dr. Mal Wu DO [facility] Work Phone: Start: 01-12-2025 Non-patient / [facility] Work [facility] Start: 01-12-2025 End: 01-12-2025 ambulatory Henok Martinez Facility:[facility] Start: 01-11-2025 Non-patient / Non-visit Mohit Lockhart nd -[facility] Start: 01-11-2025 Non-patient / Non-visit Dr. Mal Wu [facility] Work Phone: Start: 01-10-2025 ambulatory Mohit Brown Facility :[facility] Start: 01-10-2025 End: 01-14-2025 Evaluation and management of inpatient [facility] Work Phone: Start: 01-10-2025 Evaluation and management of inpatient Dr. Oniel Golden DO [facility] Work Phone: Start: 01-04-2025 End: 01-04-2025 ambulatory Brett Hatch RN Work Phone: Apartment Leasing Consultant Management Comment on above: Started Initial enro llment outreach for Chronic Disease Management Start: 12-15-2024 End: 12-15-2024 Refill Henok Martinez MD Work Phone: [facility] Comment on above: Refill Request Start: 11-17-2024 End: 11-17-2024 E-mail encounter from caregiver Angelia Hart LEAD JAVA SOFTWARE ENGINEER.POLE INCISOR OPERATOR Work Phone: Pulmonary Medicine Start: 11-17-2024 End: 11-17-2024 Follow-up encounter Angelia Hart LEAD JAVA SOFTWARE ENGINEER.POLE INCISOR OPERATOR Work Phone: Pulmonary Medicine Comment on above: follow-up from visit Start: 11-17-2024 End: 11-17-2024 ambulatory ANGELIA HART Facility:[facility] Start: 11-17-2024 End: 11-17-2024 Office outpatient visit 25 minutes Angelia Hart LEAD JAVA SOFTWARE ENGINEER.POLE INCISOR OPERATOR Work Phone: Pulmonary Medicine Comment on above: Mild persistent asth ma without complication (Primary Dx); Cough, unspecified type; Hemoptysis; Bronchiectasis without complication (HCC); Dysphagia, unspecified type Start: 11-12-2024 End: 11-12-2024 ambulatory HENOK MARTINEZ Facility:[facility] Start: 11-12-2024 End: 11-12-2024 Subsequent hospital visit by physician [facility] Work Phone: Radiology Comment on above: Epigastric pain [R10 .13] Start: 11-09-2024 End: 11-09-2024 Patient encounter procedure Meliza Wadsworth CCC-MACHINE CUTTER Work Phone: [facility] Speech Therapy Comment on above: Dysphagia, oropharyn geal phase (Primary Dx) Start: 11-09-2024 End: 11-09-2024 ambulatory Meliza Wadsworth CCC-MACHINE CUTTER Work Phone: [facility] Speech Therapy Start: 11-09-2024 End: 11-09-2024 Subsequent hospital visit by physician Gi/Gu [address] [place] [address] Hosp Work Phone: Radiology Comment on above: Oropharyngeal dyspha melissa [R13.12] Start: 11-06-2024 End: 11-14-2024 Telephone encounter Henok Martinez MD Work Phone: [facility] Comment on above: Results Start: 11-05-2024 End: 11-05-2024 Subsequent hospital visit by physician Xr [facility] Work Phone: Radiology Comment on above: Hemoptysis [R04.2] Start: 11-05-2024 End: 11-05-2024 ambulatory HENOK MARTINEZ Facility:[facility] Start: 11-04-2024 End: 11-04-2024 Patient encounter procedure Henok Martinez MD Work Phone: [facility] Comment on above: Cerebrovascular acci dent (CVA), unspecified mechanism (HCC) (Primary Dx); Type 2 diabetes mellitus without complication, without long-term current use of insulin (HCC); Atrial fibrillation, unspecified type (HCC); Atrial myxoma; Primary hypertension; Hyperlipidemia, unspecified hyperlipidemia type; Bronchiectasis without complication (HCC); Gastroesophageal reflux disease without esophagitis; History of CVA (cerebrovascular accident); 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; Epigastric pain; Hemoptysis Start: 11-04-2024 End: 11-04-2024 ambulatory HENOK MARTINEZ Facility:[facility] Start: 10-13-2024 End: 10-13-2024 ambulatory [facility] Facility:[facility] Start: 10-13-2024 End: 10-13-2024 Office outpatient visit 15 minutes Virginia Reina APRN.CNP Work Phone: [facility] Comment on above: Acute bronchitis, un specified organism (Primary Dx); Oropharyngeal dysphagia Start: 09-17-2024 End: 09-17-2024 [facility] Facility:[facility] Start: 09-17-2024 End: 09-17-[address] Henok Martinez MD -Physical Therapy Work Phone: Start: 07-09-2024 End: 07-09-2024 ambulatory Jatinder Palmerjerome Facility:[facility] Start: 07-01-2024 End: 07-01-2024 ambulatory [facility] Facility:[facility] Start: 07-01-2024 End: 07-01-2024 Patient encounter procedure Henok Martinez MD Work Phone: [facility] Comment on above: Cervical radicular p ain (Primary Dx); Atrial fibrillation, unspecified type (HCC); Hyperlipidemia, unspecified hyperlipidemia type; Primary hypertension; Type 2 diabetes mellitus without complication, without long-term current use of insulin (HCC); History of CVA (cerebrovascular accident) Start: 06-25-2024 End: 06-25-2024 Emergency department patient visit [facility] Facility:[facility] Start: 06-11-2024 ambulatory Nancy Medley MD Work Phone: Pulmonary Medicine Comment on above: Question regarding X R RIBS/CHEST 3V AP RIB/OBLS/CXR RIGHT Start: 06-06-2024 End: 06-06-2024 ambulatory [facility] Facility:[facility] Start: 06-06-2024 End: 06-06-2024 Subsequent hospital visit by physician Elysia [facility] Work Phone: Radiology Comment on above: Rib pain on right si de [R07.81] Start: 06-05-2024 End: 06-05-2024 [facility] Facility:[facility] Start: 06-05-2024 End: 06-05-2024 Patient encounter procedure Nancy Medley MD Work Phone: Pulmonary Medicine Comment on above: Mild intermittent as thma without complication (Primary Dx); Bronchiectasis without complication (HCC); Rib pain on right side Start: 06-02-2024 Refill Emma linn OD Work Phone: Ophthalmology Comment on above: Refill Request Start: 05-11-2024 Refill Clarita Hatiffany GONZALEZ Work Phone: Family Medicine [facility] Comment on above: Refill Request Start: 05-04-2024 Telephone encounter Henok Martinez MD Work Phone: [facility] [place] Comment on above: Results Start: 05-01-2024 End: 05-01-2024 Subsequent hospital visit by physician Elysia [facility] Work Phone: Radiology Comment on above: Abnormal x-ray [R93. 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); PCO (posterior capsular opacification), left; Type 2 diabetes mellitus without complication, without long-term current use of insulin (HCC); Pseudophakia of both eyes; Presbyopia Start: 03-20-2024 Refill Henok Martinez MD Work Phone: [facility] [place] Comment on above: Refill Request Start: 03-06-2024 Telephone encounter Henok Martinez MD Work Phone: [facility] Comment on above: Results Start: 03-05-2024 Telephone encounter Henok Martinez MD Work Phone: [facility] Comment on above: Results Start: 03-04-2024 End: 03-04-2024 Subsequent hospital visit by physician Xr [facility] [place] Work Phone: Radiology Comment on above: Bronchitis [J40] Start: 03-04-2024 End: 03-04-2024 Patient encounter procedure Henok Martinez MD Work Phone: [facility] Comment on above: Type 2 diabetes amy itus without complication, without long- term current use of insulin (HCC) (Primary Dx); Mild intermittent asthma without complication; Bronchiectasis without complication (HCC); Bronchitis; Weight loss Start: 03-02-2024 Telephone encounter Henok Martinez MD Work Phone: [facility] Comment on above: Patient Update; Nathalie ent Question Start: 02-25-2024 End: 02-25-2024 Emergency department patient [facility] Start: 02-21-2024 Telephone encounter Henok Martinez MD Work Phone: [facility] Comment on above: Medication Request; Patient Update Start: 02-19-2024 End: 02-19-2024 Patient encounter procedure Lana Alanis APRN.POLE INCISOR OPERATOR Work Phone: [facility] Comment on above: Sore throat (Primary Dx); URI, acute Start: 02-07-2024 End: 02-07-2024 Office outpatient visit 15 minutes Fazal Law APRN.POLE INCISOR OPERATOR Work Phone: [facility] Comment on above: Diarrhea, unspecifie d type (Primary Dx) Start: 12-26-2023 Refill Clarita Boggs APRN.POLE INCISOR OPERATOR Work Phone: [facility] Comment on above: Refill Request Start: 12-16-2023 End: 12-16-2023 Patient encounter procedure Henok Martinez MD Work Phone: [facility] Comment on above: Cerebrovascular acci dent (CVA), unspecified mechanism (HCC) (Primary Dx); History of CVA (cerebrovascular accident); Primary hypertension; Atrial fibrillation, unspecified type (HCC); Atrial myxoma; Bronchiectasis without complication (HCC); Type 2 diabetes mellitus without complication, without long-term current use of insulin (HCC) Start: 11-21-2023 End: 11-21-[address] Henok Martinez Work Phone: [facility] Work Phone: Start: 10-04-2023 End: 10-04-[address] Henok Martinez Work Phone: [facility] Work Phone: Start: 10-04-2023 End: 10-04-[address] Henok Martinez Work Phone: [facility] Work Phone: Start: 09-18-2023 Telephone encounter Taco Muller PA-C Work Phone: [facility] Start: 09-05-2023 End: 09-05-2023 Patient encounter procedure Taco Muller PA-C Work Phone: [facility] Comment on above: Cerebrovascular acci dent (CVA), unspecified mechanism (HCC) (Primary Dx); Atrial fibrillation, unspecified type (HCC); Primary hypertension; Atrial myxoma; assisted current use of anticoagulant therapy; Hyperlipidemia, unspecified hyperlipidemia type; History of CVA (cerebrovascular accident); Impaired cognition; Bronchiectasis without complication (HCC); Mild intermittent asthma without complication; Type 2 diabetes mellitus without complication, without long-term current use of insulin (HCC); Gastroesophageal reflux disease without esophagitis; History of uterine cancer; Encounter for immunization; Pill dysphagia; Left ear pain Start: 08-05-2023 Refill Henok Martinez MD Work Phone: [facility] Comment on above: Refill Request Start: 07-30-2023 End: 07-30-2023 Emergency department patient visit Dr. 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 Henok Martinez Work Phone: [facility] Work Phone: Start: 06-18-2023 End: 06-18-[address] Henok Martinez Work Phone: [facility] Work Phone: Start: 04-22-2023 End: 04-22-2023 Emergency department patient [facility]. [facility] Start: 04-15-2023 End: 04-15-2023 Office outpatient visit 15 minutes Clarita Boggs APRN.CNP Work Phone: [facility] Comment on above: Primary hypertension (Primary Dx); History of CVA (cerebrovascular accident); Atrial fibrillation, unspecified type (HCC) Start: 04-05-2023 End: 04-05-2023 Emergency department patient [facility]. [facility] Start: 04-01-2023 End: 04-01-2023 Patient encounter procedure Henok Martinez MD Work Phone: [facility] Comment on above: Primary hypertension (Primary Dx); Type 2 diabetes mellitus without complication, without long-term current use of insulin (HCC) Start: 03-30-2023 End: 03-31-2023 Emergency department patient [facility]. [facility]ok [facility] Start: 03-18-2023 Non-patient / Non-visit Dr. Bernardo Martinez Work Phone: [facility] Start: 03-18-2023 End: 03-18-2023 Admission to same day surgery center Dr. Henok Martinez Work Phone: [facility]-Associate Manager Affiliate Marketing/Special Procedures Start: 03-18-2023 End: 03-18-[address] Henok Martinez Work Phone: [facility] Work Phone: Start: 03-07-2023 End: 03-07-[address] Henok Martinez Work Phone: [facility] Work Phone: Start: 03-07-2023 End: 03-07-[address] Henok Martinez Work Phone: [facility] Start: 03-07-2023 End: 03-07-[address] Henok Martinez Work Phone: [facility] Start: 02-25-2023 End: 02-25-[address] Nutrition Therapy Comment on above: Assessment; Patient Education Start: 02-15-2023 End: 02-15-2023 Patient encounter procedure Emma Mcnally OD Work Phone: Ophthalmology Comment on above: Type 2 diabetes amy itus without complication, without long- term current use of insulin (HCC) (Primary Dx); Pseudophakia of both eyes; Presbyopia Start: 02-14-2023 Telephone encounter Sadia cagle APRN.POLE INCISOR OPERATOR Work Phone: OB/Gynecology Comment on above: Results Start: 02-13-2023 End: 02-13-2023 Subsequent hospital visit by physician Tatyana [facility] ([facility]) Work Phone: Cat Scan Comment on above: Pelvic and perineal pain [R10.2] Start: 02-08-2023 End: 02-08-2023 Patient encounter procedure Sadia Ramsey APRN.POLE INCISOR OPERATOR Work Phone: OB/Gynecology Comment on above: Vaginal bleeding (Pr imary Dx); Pelvic and perineal pain; History of uterine cancer Start: 01-25-2023 End: 01-25-2023 Patient encounter procedure Henok Martinez MD Work Phone: [facility] Comment on above: Primary hypertension (Primary Dx); Type 2 diabetes mellitus without complication, without long-term current use of insulin (HCC); Atrial myxoma; History of uterine cancer; History of CVA (cerebrovascular accident); Gastroesophageal reflux disease without esophagitis; Bronchiectasis without complication (HCC); Mild intermittent asthma without complication Start: 11-23-2022 End: 11-23-2022 Nursing evaluation of patient and report Mi Nurse Work Phone: [facility] Comment on above: Primary hypertension (Primary Dx) Start: 11-23-2022 Telephone encounter Henok Martinez MD Work Phone: [facility] [place] Comment on above: Blood Pressure Check (/) Start: 11-22-2022 End: 11-22-2022 Patient encounter procedure Nancy Medley MD Work Phone: Pulmonary Medicine Comment on above: Bronchiectasis witho ut complication (HCC) (Primary Dx); Mild intermittent asthma without complication Start: 11-20-2022 End: 11-20-2022 Subsequent hospital visit by physician Ct [facility] ([facility]) Work Phone: Cat Scan Comment on above: Chronic cough [R05.3 ] Start: 11-16-2022 End: 11-16-2022 ambulatory Pulm Lab [facility] Comment on above: Spirometry Start: 11-16-2022 End: 11-16-2022 Patient encounter procedure Pulm Lab [facility] Work Phone: [facility] Comment on above: Chronic cough (Prima ry Dx); Abnormal chest x-ray; Mild persistent asthma without complication Start: 10-26-2022 End: 10-26-2022 Subsequent hospital visit by physician Xr [facility] [place] Work Phone: Radiology Comment on above: Cough, unspecified t ype [R05.9] Start: 10-26-2022 End: 10-26-2022 Patient encounter procedure Henok Martinez MD Work Phone: [facility] [place] Comment on above: Cough, unspecified t ype (Primary Dx); Primary hypertension Start: 10-23-2022 Refill Henok Martinez MD Work Phone: [facility] Comment on above: Refill Request Start: 10-15-2022 Telephone encounter Henok Martinez MD Work Phone: [facility] Comment on above: Results Start: 10-12-2022 End: 10-12-2022 ambulatory Pulm Lab [facility] Work Phone: PULM LAB [facility] Comment on above: Spirometry Start: 10-12-2022 End: 10-12-2022 Patient encounter procedure Pulm Lab [facility] Work Phone: [facility] Start: 10-01-2022 End: 10-01-2022 Patient encounter procedure Henok Martinez MD Work Phone: [facility] Comment on above: Atrial myxoma (Prima ry Dx); Primary hypertension; Type 2 diabetes mellitus without complication, without long-term current use of insulin (HCC); History of CVA (cerebrovascular accident); Mild intermittent asthma without complication Start: 09-25-2022 ambulatory Chanel avila RN LD SURGERY Start: 09-17-2022 Telephone encounter Henok Martinez MD Work Phone: [facility] Comment on above: Medication Problem ( Dry cough) Start: 09-05-2022 Telephone encounter Monet Krishnamurthy MD Work Phone: General Surgery Comment on above: 10/04/2022 colon lodi Start: 09-05-2022 End: 09-05-2022 Patient encounter procedure Monet Calvo MD Work Phone: General Surgery Comment on above: Change in bowel habi ts (Primary Dx) Start: 07-16-2022 Refill Henok Martinez MD Work Phone: [facility] Comment on above: Refill Request (Need s 90 days & New Pharmacy) Start: 05-18-2022 Refill Henok Martinez MD Work Phone: [facility] Comment on above: Refill Request Start: 04-23-2022 Telephone encounter Henok Martinez MD Work Phone: [facility] Comment on above: Medication Request Start: 01-29-2022 Telephone encounter Henok Martinez MD Work Phone: [facility] Comment on above: Results; Patient Upd ate Start: 01-26-2022 End: 01-26-2022 Patient encounter procedure Henok Martinez MD Work Phone: [facility] Comment on above: History of CVA (cere brovascular accident) (Primary Dx); Type 2 diabetes mellitus without complication, without long-term current use of insulin (HCC); Primary hypertension; Atrial myxoma Procedures Date Procedure Procedure Detail Performing Clinician Start: 05-25-2025 Gen seq analys hali org/hemtolmphoid bandar 51/> gen Juan Miguel Yusuf MD Work Phone: Start: 02-22-2025 Radiologic exam chest 2 views Juan Miguel levy MD Work Phone: Start: 02-22-2025 Blood count complete auto&auto difrntl wbc Juan Miguel Yusuf MD Work Phone: Start: 02-05-2025 Radiologic exam chest 2 views Juan Miguel levy MD Work Phone: Start: 01-12-2025 End: 01-12-[address] Henok Martinez MD Work Phone: Start: 01-12-[address] Henok Farmer Work Phone: Start: 01-09-2025 Computed tomography of abdomen and pelvis with intravenous contrast Dr. Henok Martinez MD Work Phone: Start: 11-09-2024 Radiologic exam swallow function contrast study Virginia Reina LEAD JAVA SOFTWARE ENGINEER.POLE INCISOR OPERATOR Work Phone: Start: 11-05-2024 Radiologic exam chest 2 views Henok Martinez MD Work Phone: Start: 06-06-2024 Radex ribs uni w/posteroant ch minimum 3 views Nancy Medley MD Work Phone: Start: 05-01-2024 Radiologic exam chest 2 views Henok Martinez MD Work Phone: Start: 05-01-2024 Adult depression screening assessment Emma Mcnally OD Work Phone: Start: 03-04-2024 Radiologic exam chest 2 views Henok Martinez MD Work Phone: Start: 02-25-2024 Plain chest X-ray Dr. Henok Martinez Work Phone: Start: 02-19-2024 COVID & INFLUENZA A/B & RSV NAAT, ROUTINE Lana Alanis LEAD JAVA SOFTWARE ENGINEER.POLE INCISOR OPERATOR Work Phone: Start: 02-19-2024 STREP A MOLECULAR (POC) [facility] Provider Start: 10-04-2023 MRI of brain with contrast Dr. Henok garcia Work Phone: Start: 04-22-2023 Plain chest X-ray Dr. Henok Martinez Work Phone: Start: 04-22-2023 CT of head without contrast Dr. Henok Martinez Work Phone: Start: 04-05-2023 Plain chest X-ray Dr. Henok Martinez Work Phone: Start: 03-30-2023 CT of head without contrast Dr. Henok Martinez Work Phone: Start: 03-07-2023 Plain chest X-ray Dr. Henok Martinez Work Phone: Start: 02-13-2023 Ct pelvis w/contrast material Sadia Metc snf LEAD JAVA SOFTWARE ENGINEER.POLE INCISOR OPERATOR Work Phone: Start: 02-08-2023 Urnls dip stick/tablet rgnt auto w/o microscopy Sadia Madison LEAD JAVA SOFTWARE ENGINEER.POLE INCISOR OPERATOR Work Phone: Start: 11-20-2022 Ct thorax w/o contrast material Kerrie Medley MD Work Phone: Start: 11-16-2022 Nitric oxide gas determination Nancy Medley MD Work Phone: Start: 10-26-2022 Radiologic exam chest 2 views Henok Martinez MD Work Phone: Start: 10-12-2022 Plethysmography lung volumes w/wo airway resist Henok Martinez MD Work Phone: H/O: hysterectomy H/O: hysterectomy Dr. Elissa Martinez MD Work Phone: H/O: hysterectomy H/O: hysterectomy Dr. Archana Golden DO H/O: hysterectomy H/O: hysterectomy Dr. Taco Wu DO Plan of Treatment Date Care Activity Detail Author Start: 11-05-2025 Hepatitis B screening Urine Albumin:Creatinine Ratio [facility] Start: 11-05-2025 Hepatitis B surface antibody level LDL Cholesterol [facility] Start: 07-01-2025 Covid-19 Vaccine () Covid-19 Vaccine () [facility] Comment on above: Postponed from 06/28/2024 (Declined at t his time) Start: 07-01-2025 Covid-19 Vaccine () Covid-19 Vaccine () [facility] Comment on above: Postponed from 06/28/2024 (Declined at t his time) Start: 07-01-2025 Covid-19 Vaccine (3 - Pfizer risk series) Covid-19 Vaccine (3 - Pfizer risk series) [facility] Comment on above: Postponed from 03/29/2021 (Declined at t his time) Start: 07-01-2025 Shingrix Vaccine (1 of 2) Shingrix Vaccine (1 of 2) [facility] Comment on above: Postponed from 1990 (Declined at t his time) Postponed from 06/17 (Declined at this time) Start: 07-01-2025 Urine microalbumin profile DTaP,Tdap,Td Vaccine (1 - Tdap) [facility] Comment on above: Postponed from 1959 (Declined at t his time) Start: 06-28-2025 Influenza vaccination [facility] Start: 06-24-2025 End: 06-24-2025 Patient encounter procedure 06/24/2025 9:15 AM EDT Appointment [facility] [address] [place] [address] Emily, Anel Billings MD [address] [place] [address] Pt on Eliquis and aware to stop 3 days prior, not on diabetic meds to stop [facility] Comment on above: Pt on Eliquis and aware to stop 3 days p rior, not on diabetic meds to stop Start: 2025 End: 2025 ambulatory 2025 10:40 AM EDT PAT Pre Surgical Testing [address] [place] [address] Diaz on 06/24 9:15am Pre Surgical Testing Comment on above: ERCP scheduled with Dr Diaz on 06/24 9:1 5am Start: 06-04-2025 End: 06-04-2025 Patient encounter procedure 06/04/2025 11:00 AM EDT Office Visit Radiation Oncology [address] [place], [place] [id number] Lamar Stoner MD [address] [place], [place] [phone] [facility] Radiation Oncology Comment on above: OV Start: 06-04-2025 End: 06-04-2025 ambulatory 06/04/2025 10:10 AM EDT Visit (SP) Office Hematology/Oncology [address] [place], [place] [phone] Juan Miguel Yusuf MD [address], [place] [phone] OV/CT 05/26* Hematology/Oncology Comment on above: OV/CT 05/26* Start: 05-26-2025 Subsequent hospital visit by physician 05/26/2025 1:28 PM EDT Hospital Encounter Cat Scan [address] [place] [address] 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) [C25.0] Cat Scan Comment on above: Malignant neoplasm of head of pancreas ( HCC) [C25.0] Start: 05-26-2025 End: 05-26-2025 Patient encounter procedure Cat Scan Comment on above: Malignant neoplasm of head of pancreas ( HCC) [C25.0] Start: 05-26-2025 End: 05-26-2025 ambulatory 05/26/2025 10:30 AM EDT Infusion Center Hematology/Oncology [address] [place] [address] (SO)CBC(PORT)D15 GEMZAR ABRAXAZANE* Hematology/Oncology Comment on above: (SO)CBC(PORT)D15 GEMZAR ABRAXAZANE* Start: 05-25-2025 End: 08-24-2025 Cancer Ag 19-9 [Units/volume] in Serum or Plasma [facility] Comment on above: Expected: 05/25/2025, Expires: Start: 05-25-2025 End: 05-25-2025 ambulatory 05/25/2025 12:00 PM EDT Visit (SP) Office Hematology/Oncology [address] [place] [address] Juan Miguel Yusuf MD [address] [place] [address] OV* BACK IN [facility] Hematology/Oncology Comment on above: OV* BACK IN [facility] Start: 05-19-2025 End: 05-19-2025 ambulatory 05/19/2025 11:00 AM EDT Infusion Center Hematology/Oncology [address] [place] [address] (SO)CBC(PORT)D8 GEMZAR ABRAXANE* Hematology/Oncology Comment on above: (SO)CBC(PORT)D8 GEMZAR ABRAXANE* Start: 05-12-2025 End: 05-12-2025 ambulatory 05/12/2025 11:00 AM EDT Infusion Center Hematology/Oncology [address] [place] [address] QMO GEMZAR ABRAXANE(PORT)/C4-6/LAB &OV 05/10* Hematology/Oncology Comment on above: QMO GEMZAR ABRAXANE(PORT)/C4-6/LAB&OV * Start: 05-10-2025 End: 05-10-2025 ambulatory Hematology/Oncology Comment on above: (SO)CBC/CMP(S)(PORT)* OV/LAB EARLY(PORT)/C HEMO 05/12* PARAMJIT Start: 05-05-2025 End: 05-05-2025 ambulatory 05/05/2025 11:00 AM EDT Infusion Center Hematology/Oncology [address] [place] [address] (SO)CBC(PORT)D8 GEMZAR ABRAXANE* Hematology/Oncology Comment on above: (SO)CBC(PORT)D8 GEMZAR ABRAXANE* Start: 05-01-2025 Anxiety Screening Anxiety Screening [facility] Start: 05-01-2025 Depression Screening Depression Screening [facility] Start: 05-01-2025 Diabetic foot examination Diabetic Foot Exam [facility] Start: 04-29-2025 End: 04-29-2025 Patient encounter procedure 04/29/2025 2:45 PM EDT Office Visit [facility] Ophthalmology [address] [place] [address] Emma Mcnally, OD [address] [place] [address] diabetic eye exam Ophthalmology Comment on above: diabetic eye exam Start: 04-29-2025 End: 07-29-2025 CBC W Auto Differential panel - Blood COMPLETE BLOOD COUNT AND DIFFERENTIAL Lab Routine 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) Expected: 04/29/2025, Expires: 07/29/2025 [facility] Work Phone: Comment on above: Expected: 04/29/2025, Expires: Start: 04-29-2025 End: 07-29-2025 Comprehensive metabolic 2000 panel - Serum or Plasma COMPREHENSIVE METABOLIC PANEL Lab Routine 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) Expected: 04/29/2025, Expires: 07/29/2025 [facility] Comment on above: Expected: 04/29/2025, Expires: Start: 04-29-2025 End: 07-29-2025 Hemoglobin A1c in Blood HEMOGLOBIN A1C Lab Routine Type 2 diabetes mellitus with hyperglycemia, with long-term current use of insulin (HCC) Expected: 04/29/2025, Expires: 07/29/2025 [facility] Comment on above: Expected: 04/29/2025, Expires: Start: 04-28-2025 Glaucoma screening Dilated Retinal Exam [facility] Start: 04-28-2025 End: 04-28-2025 ambulatory 04/28/2025 10:30 AM EDT Infusion Center Hematology/Oncology [address] [place] [address] (SO)CBC(PORT)D15 GEMZAR ABRAXAZANE* Hematology/Oncology Comment on above: (SO)CBC(PORT)D15 GEMZAR ABRAXAZANE* Start: 04-26-2025 Influenza vaccination Influenza Vaccine (#1) [facility] Comment on above: Postponed from 06/28/2024 (Declined at t his time) Start: 04-22-2025 End: 04-22-2025 ambulatory 04/22/2025 11:00 AM EDT Infusion Center Hematology/Oncology [address] [place] [address] QMO GEMZAR ABRAXANE(PORT)/C4-6/LAB &OV 04/21* Hematology/Oncology Comment on above: QMO GEMZAR ABRAXANE(PORT)/C4-6/LAB&OV * Start: 04-21-2025 End: 04-21-2025 ambulatory Hematology/Oncology Comment on above: (SO)CBC/CMP(S)(PORT)* OV/LAB EARLY(PORT)/C HEMO 04/22* ABRAMOVICH (SO)CBC(PORT)D15 GEM BROOKS ABRAXAZANE* (SO)CBC(PORT)D8 GEMZ AR ABRAXANE* Start: 04-20-2025 End: 04-20-2025 Patient encounter procedure 04/20/2025 8:00 AM EDT Appointment [facility] [address] [place] [address] Anel Diaz MD [address] [facility] [place] [address] Pt on Eliquis and aware to stop 3 days prior, not on any diabetic meds that need stopped [facility] Comment on above: Pt on Eliquis and aware to stop 3 days p rior, not on any diabetic meds that need stopped Start: 04-19-2025 Hemoglobin A1c measurement HbA1C [facility] Start: 04-19-2025 End: 04-19-2025 Patient encounter procedure 04/19/2025 1:30 PM EDT Office Visit Radiation Oncology [address] [place], [place] [phone] Lamar Stoner MD [address] [place], [place] [phone] PANCREATIC ADENOCARCINOMA CONSULT* Radiation Oncology Comment on above: PANCREATIC ADENOCARCINOMA CONSULT* Start: 04-19-2025 End: 04-19-2025 ambulatory 04/19/2025 9:20 AM EDT PAT Pre Surgical Testing [address] [place], [place] [id number] ERCP IN ENDO Pre Surgical Testing Comment on above: ERCP IN ENDO Start: 04-14-2025 End: 04-14-2025 ambulatory Hematology/Oncology Comment on above: (SO)CBC(PORT)D8 GEMZAR ABRAXANE* QMO GEMZAR ABRAXANE( PORT)/C3-6/LAB&OV 04/12* Start: 04-12-2025 End: 04-12-2025 ambulatory Hematology/Oncology Comment on above: (SO)CBC/CMP(S)(PORT)* OV/LAB EARLY(PORT)/C HEMO 04/14* PARAMJIT Start: 04-07-2025 End: 04-07-2025 ambulatory [facility] Comment on above: CBC* D15 GEMZAR ABRAXAZAN E/LAB EARLY* (SO)CBC* (SO)CBC(PORT)D15 GEM BROOKS ABRAXAZANE* QMO GEMZAR ABRAXANE( PORT)/C3-6/LAB&OV 04/05* Start: 04-06-2025 End: 04-06-2025 Patient encounter procedure 04/06/2025 1:45 PM EDT Office Visit [facility] [address] [facility] 3rd [place] [address] Ayaz Nguyễn MD [address] [place] [address] Patient wants to discuss options other than chemo [facility] Comment on above: Patient wants to discuss options other t santos chemo Start: 04-05-2025 End: 04-05-2025 ambulatory Hematology/Oncology Comment on above: (SO)CBC/CMP(S)(PORT)OV TODAY* OV/LAB EARLY(PORT)/C HEMO * ABRAMOVICH Start: 03-31-2025 End: 03-31-2025 ambulatory [facility] Comment on above: CBC* D8 GEMZAR ABRAXANE/L AB EARLY* (SO)CBC* (SO)CBC(PORT)D8 GEMZ AR ABRAXANE* Start: 03-30-2025 End: 03-30-2025 Patient encounter procedure 03/30/2025 2:00 PM EDT Office Visit Family Virgie Mendoza [address] [place], [place] [phone] Henok Martinez MD [address] [place], [place] [phone] 6 week follow up [facility] Comment on above: 6 week follow up Start: 03-30-2025 End: 03-30-2025 ambulatory 03/30/2025 10:00 AM EDT Infusion Center Hematology/Oncology [address] [place], [place] [phone] (SO)CBC(PORT)D15 GEMZAR ABRAXAZANE* Hematology/Oncology Comment on above: (SO)CBC(PORT)D15 GEMZAR ABRAXAZANE* Start: 03-25-2025 End: 03-25-2025 ambulatory Hematology/Oncology Comment on above: QMO GEMZAR ABRAXANE/C3-6/LAB&OV 03/23* QMO GEMZAR ABRAXANE( PORT)/C3-6/LAB&OV 03/23* (SO)CBC(PORT)D15 GEM BROOKS ABRAXAZANE* Start: 03-23-2025 End: 03-23-2025 ambulatory [facility] Comment on above: CBC/CMP* OV/LAB EARLY/CHEMO * ABRAMOVICH (SO)CBC/CMP(S)* (SO)CBC/CMP(S)(PORT) * OV/LAB EARLY(PORT)/C HEMO 03/25* ABRAMOVICH (SO)CBC(PORT)D8 GEMZ AR ABRAXANE* Start: 03-17-2025 End: 03-17-2025 ambulatory Hematology/Oncology Comment on above: (SO)CBC(PORT)D8 GEMZAR ABRAXANE* QMO GEMZAR ABRAXANE( PORT)/C2-6/LAB&OV 03/15* Start: 03-15-2025 End: 03-15-2025 ambulatory Hematology/Oncology Comment on above: (SO)CBC/CMP(S)(PORT)* OV/LAB EARLY(PORT)/C HEMO 03/17* ABRAMOVICH Start: 03-12-2025 End: 03-12-2025 Patient encounter procedure 03/12/2025 2:40 PM EDT Office Visit [facility] [address] [place] [address] Henok Martinez MD [address] [place], [place] [address] 6 wk follow up [facility] Comment on above: 6 wk follow up Start: 03-11-2025 End: 03-11-2025 ambulatory 03/11/2025 1:00 PM EDT [facility] [address] [place] [address] Marci Nowak LGC [address] [place] [address] Pancreatic cancer Genetic [facility] Comment on above: Pancreatic cancer Start: 03-10-2025 End: 03-26-2026 XR Chest PA and Lateral XR CHEST 2V FRONTAL/LAT Radiology Routine RSV (respiratory syncytial virus pneumonia) Expected: 03/10/2025, Expires: 03/26/2026 [facility] Work Phone: Comment on above: Expected: 03/10/2025, Expires: Start: 03-10-2025 End: 03-10-2025 ambulatory 03/10/2025 10:30 AM EDT [facility] Hematology/Oncology [address], [place] [phone] QMO GEMZAR ABRAXANE(PORT)/C2-6/LAB &OV 03/09* Hematology/Oncology Comment on above: QMO GEMZAR ABRAXANE(PORT)/C2-6/LAB&OV * Start: 03-10-2025 End: 03-10-2025 ambulatory [facility] Comment on above: CBC* CBC/ GEMZAR ABRAXAZA NE/D15* D15 GEMZAR ABRAXAZAN E/LAB EARLY* (SO)CBC* (SO)CBC(PORT)D15 GEM BROOKS ABRAXAZANE* Start: 03-09-2025 End: 03-09-2025 ambulatory Hematology/Oncology Comment on above: (SO)CBC/CMP(S)(PORT)* OV/LAB EARLY(PORT)/C HEMO 03/10* ABRAMOVICH Start: 03-05-2025 End: 03-05-2025 Patient encounter procedure 03/05/2025 10:30 AM EDT Office Visit [facility] [address] [place] [address] Anisa Gutierrez, MS [address] [place] [address] Pancreatic cancer [facility] Comment on above: Pancreatic cancer Start: 03-04-2025 End: 03-04-2025 Admission to same day surgery center 03/04/2025 12:00 PM EDT - 03/04/2025 1:30 PM EDT [facility] [address] [place] [address] Yasmin Lawrence MD, [address] [place] [address] INSERTION PORT VENOUS ACCESS ADULT [facility] Radiology Comment on above: INSERTION PORT VENOUS ACCESS ADULT Start: 03-04-2025 End: 03-04-2025 Insj tunneled ctr vad w/subq port age 5 yr/> INSERTION PORT VENOUS ACCESS ADULT 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) 03/04/2025 12:00 PM EDT ME IR Start: 03-04-2025 Subsequent hospital visit by physician 03/04/2025 12:00 PM EDT Hospital Encounter [facility] Radiology [address] [place] [address] Yasmin Lawrence MD, [address] [place] [address] 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) [C25.0] [facility] Radiology Comment on above: Malignant neoplasm of head of pancreas ( HCC) [C25.0] Start: 03-03-2025 End: 03-03-2025 ambulatory [facility] Comment on above: CBC* CBC/GEMZAR ABRAXANE/ D8* D8 GEMZAR ABRAXANE/L AB EARLY* (SO)CBC* (SO)CBC(PORT)D8 GEMZ AR ABRAXANE* Start: 02-24-2025 End: 02-24-2025 Patient encounter procedure 02/24/2025 11:40 AM EDT Office Visit [facility] [place] [address] [place] [address] Jorge Becker MD [address] [place] [address] continued cough follow up (PT WAS ADMITTED TO [facility] 02/10-02/14/25 DX:PNEUMONIA, RSV) - patient insisting on seeing , no LICENSED MENTAL HEALTH PROFESSIONAL [facility] [place] Comment on above: continued cough follow up (PT WAS ADMITT ED TO [facility] 02/10-02/14/25 DX:PNEUMONIA, RSV) - patient insisting on seeing , no LICENSED MENTAL HEALTH PROFESSIONAL Start: 02-24-2025 End: 02-24-2025 ambulatory Hematology/Oncology Comment on above: QMO GEMZAR ABRAXANE/D1/C2/6-LAB&OV 02/23* QMO GEMZAR ABRAXANE/ C2-6/LAB&OV 02/23* QMO GEMZAR ABRAXANE( PORT)/C2-6/LAB&OV 02/22* Start: 02-23-2025 End: 02-23-2025 ambulatory [facility] Comment on above: CBC/CMP* CBC/CMP/OV/CHEMO 01/28 0* OV/LAB EARLY/CHEMO * ABRAMOVICH Start: 02-22-2025 End: 02-22-2025 ambulatory [facility] Comment on above: (SO)CBC/CMP(S)* OV/LAB EARLY/CHEMO * ABRAMOVICH (SO)CBC/CMP(S)(PORT) * OV/LAB EARLY(PORT)/C HEMO 02/24* PARAMJIT Start: 02-19-2025 End: 02-19-2025 Patient encounter procedure 02/19/2025 1:00 PM EDT Office Visit Endocrinology [address] [place], [place] [phone] Rosaura Sanchez MD [address] [place] [address] Type 2 diabetes mellitus without complication, without long-term current use of ... Endocrinology Comment on above: Type 2 diabetes mellitus without complic ation, without long-term current use of ... Start: 02-18-2025 End: 02-18-2025 Admission to same day surgery center 02/18/2025 10:30 AM EDT - 02/18/2025 12:00 PM EDT Surgery [facility] Radiology [address] [place] [address] [place], [address] [place] [address] INSERTION PORT VENOUS ACCESS ADULT [facility] Radiology Comment on above: INSERTION PORT VENOUS ACCESS ADULT Start: 02-18-2025 End: 02-18-2025 Insj tunneled ctr vad w/subq port age 5 yr/> INSERTION PORT VENOUS ACCESS ADULT 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) 02/18/2025 10:30 AM EDT ME IR Start: 02-18-2025 Subsequent hospital visit by physician [facility] Radiology Comment on above: Malignant neoplasm of head of pancreas ( HCC) [C25.0] Start: 02-16-2025 End: 02-16-2025 Patient encounter procedure 02/16/2025 12:00 PM EDT Office Visit [facility] [address] [place] [address] Cinthia Reno APRN.POLE INCISOR OPERATOR [address] [place] [address] Hospital follow up D/C [facility] 02.14.2025 Admitted for: Acute Pneumonia [facility] Comment on above: Hospital follow up D/C [facility] Admitted for: Acute Pneumonia Start: 02-12-2025 End: 02-12-2025 ambulatory [facility] Comment on above: CBC* CBC/QMO GEMZAR ABRAX ANE/D15* D15 GEMZAR ABRAXANE/ LAB EARLY* (SO)CBC* (SO)CBC(PORT) D15 GE MZAR ABRAXANE* (SO)CBC Start: 02-11-2025 End: 02-11-2025 Patient encounter procedure 02/11/2025 12:40 PM EDT Office Visit [facility] [address] [place] [address] Virginia Reina LEAD JAVA SOFTWARE ENGINEER.POLE INCISOR OPERATOR [address] [place] [address] . [facility] Comment on above: . Start: 02-08-2025 End: 05-10-2025 PT panel - Platelet poor plasma by Coagulation assay PROTHROMBIN TIME Lab Routine 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) Expected: 02/08/2025, Expires: 05/10/2025 [facility] Work Phone: Comment on above: Expected: 02/08/2025, Expires: Start: 02-08-2025 End: 02-08-2025 Admission to same day surgery center 02/08/2025 12:00 PM EDT - 02/08/2025 1:30 PM EDT Surgery [facility] Radiology [address] [place] [address] [place] [address] [place] [address] INSERTION PORT VENOUS ACCESS ADULT [facility] Radiology Comment on above: INSERTION PORT VENOUS ACCESS ADULT Start: 02-08-2025 End: 02-08-2025 Insj tunneled ctr vad w/subq port age 5 yr/> INSERTION PORT VENOUS ACCESS ADULT 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) 02/08/2025 12:00 PM EDT ME IR Start: 02-08-2025 Subsequent hospital visit by physician 02/08/2025 12:00 PM EDT Hospital Encounter [facility] Radiology [address] [place] [address] [place] [address] [place] [address] 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) [C25.0] [facility] Radiology Comment on above: Malignant neoplasm of head of pancreas ( HCC) [C25.0] Start: 02-05-2025 End: 02-05-2025 ambulatory [facility] Comment on above: CBC* CBC/QMO GEMZAR ABRAX AZANE/D8* D8 GEMZAR ABRAXAZANE /LAB EARLY* (SO)CBC* Start: 02-04-2025 End: 02-04-2025 Patient encounter procedure 02/04/2025 11:00 AM EDT Office Visit [facility] [address] [place] [address] 3rd Floor [place], [place] [phone] Ayaz Nguyễn MD [address] [place], [place] [phone] [facility] SURGERY DEPARTMENT Comment on above: [facility] Start: 02-03-2025 Hemoglobin A1c measurement HbA1C [facility] Start: 02-03-2025 End: 02-03-2025 Patient encounter procedure 02/03/2025 7:15 AM EDT Office Visit Endocrinology [address] [place] [address] Margaret Macdonald APRN.POLE INCISOR OPERATOR [address] [place] [address] Type 2 diabetes mellitus with hyperglycemia, with long-term current use of insul... Endocrinology Comment on above: Type 2 diabetes mellitus with hyperglyce keiry, with long-term current use of insul... Start: 02-01-2025 End: 02-01-2025 Patient encounter procedure 02/01/2025 11:00 AM EDT Office Visit Family [facility] [address] [place] [address] Henok Martinez MD [address] [place] [address] Hospital discharge follow up [facility] Comment on above: Hospital discharge follow up Start: 01-28-2025 End: 01-28-2025 ambulatory [facility] Laboratory Comment on above: CBC* CBC/START QMO GEMZAR ABRAXANE/D1/C1/6* (SO)CBC* (SO)CBC/START QMO GE MZAR ABRAXANE/D1/C1/6* Start: 01-27-2025 End: 01-27-2025 ambulatory 01/27/2025 10:30 AM EDT Infusion Center Hematology/Oncology [address] [place] [address] Wstr, Flux Mixer [facility] [address] [place] [address] CHEMO ED Hematology/Oncology Comment on above: CHEMO ED Start: 01-25-2025 End: 01-25-2025 ambulatory 01/25/2025 8:30 AM EDT Visit (SP) Office Hematology/Oncology [address] [place] [address] Juan Miguel Yusuf MD [address] [place] [address] LICENSED MENTAL HEALTH PROFESSIONAL/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) [C25.0]/IST AVAILABLE OK PER NURSE/ REF BY ASHUTOSH FREEMAN* Hematology/Oncology Comment on above: LICENSED MENTAL HEALTH PROFESSIONAL/Malignant neoplasm of head of pancrea s (HCC) [C25.0]/IST AVAILABLE OK PER NURSE/ REF BY ASHUTOSH FREEMAN* Start: 01-21-2025 End: 01-21-2025 Patient encounter procedure 01/21/2025 10:15 AM EDT Office Visit [facility] Ophthalmology [address] [place] [address] Emma Mcnally, OD [address] [address] diabetic eye exam- has been squinting Ophthalmology Comment on above: diabetic eye exam- has been squinting Start: 01-14-2025 Patient discharge [facility] Start: 01-14-2025 [facility] Start: 01-12-2025 End: 01-12-2025 Patient encounter procedure 01/12/2025 2:00 PM EDT Office Visit [facility] [place] [address] [facility] [place] [address] Henok Martinez MD [address] [place] [address] 4 week follow up [facility] [place] Comment on above: 4 week follow up Start: 01-11-2025 Speech therapy assessment [facility] Start: 01-11-2025 [facility] Start: 01-10-2025 Speech therapy assessment [facility] Start: 01-10-2025 Care planning and problem solving actions [facility] Start: 01-10-2025 End: 01-10-2025 [facility] Start: 01-10-2025 Care regimes management [facility] Start: 01-10-2025 Notification of physician [facility] Start: 01-10-2025 Referral to gastroenterology service [facility] Start: 01-10-2025 Application of intermittent pneumatic compression device [facility] Start: 01-10-2025 Assessment of risk of venous thromboembolism [facility] Start: 01-10-2025 Insertion of catheter into peripheral vein [facility] Start: 01-10-2025 Measuring intake and output [facility] [facility] Start: 01-10-2025 Providing care according to standard [facility] Start: 01-10-2025 Provision of activity privileges [facility] Start: 01-10-2025 Referral to occupational therapist [facility] Start: 01-10-2025 Referral to service [facility] Start: 01-10-2025 Following clinical pathway protocol [facility] Start: 01-10-2025 Verification routine [facility] Start: 01-10-2025 Admission procedure [facility] Start: 01-10-2025 Hospital admission, emergency, from emergency room, medical nature [facility] Start: 01-10-2025 Cancer antigen 19-9 measurement [facility] Start: 01-10-2025 Patient referral to dietitian [facility] Start: 12-25-2024 End: 12-25-2024 Patient encounter procedure 12/25/2024 3:00 PM EST Office Visit [facility] [place] [address] [place], [place] [id number] Henok aMrtinez MD [address] [place] [address] 4 week follow up [facility] [place] [facility] Comment on above: 4 week follow up Start: 12-16-2024 RSV Vaccine (1 - 1-dose 60+ series) RSV Vaccine (1 - 1-dose 60+ series) [facility] Comment on above: Postponed from 2000 (Declined at t his time) Start: 12-16-2024 RSV Vaccine (1 - 1-dose 75+ series) RSV Vaccine (1 - 1-dose 75+ series) [facility] Comment on above: Postponed from 2015 (Declined at t his time) Start: 12-07-2024 End: 12-07-2024 Patient encounter procedure 12/07/2024 2:45 PM EST Office Visit Pulmonary Medicine [address] [place] [address] Nancy Medley MD [address] [place] [address] 6 month follow up Pulmonary Medicine Comment on above: 6 month follow up Start: 12-02-2024 End: 12-02-2024 Patient encounter procedure 12/02/2024 2:00 PM EST Office Visit Endocrinology [address] [place] [id number] Margaret Macdonald APRN.POLE INCISOR OPERATOR [address] [place] [address] Type 2 diabetes mellitus without complication, without long-term current use of insulin (HCC) [E11.9] Endocrinology Comment on above: Type 2 diabetes mellitus without complic ation, without long-term current use of insulin (HCC) [E11.9] Start: 11-17-2024 End: 11-17-2024 Patient encounter procedure Radiology Comment on above: Epigastric pain [R10.13] Hemoptysis [R04.2] Start: 11-12-2024 End: 11-12-2024 Patient encounter procedure 11/12/2024 2:30 PM EST Appointment Radiology [address] [place] [address] Epigastric pain [R10.13]; Elevated lipase [R74.8] Radiology Comment on above: Epigastric pain [R10.13]; Elevated lipas e [R74.8] Start: 11-09-2024 End: 11-09-2024 Patient encounter procedure Radiology Comment on above: Oropharyngeal dysphagia [R13.12] Start: 11-06-2024 End: 02-05-2025 Lipase [Enzymatic activity/volume] in Serum or Plasma LIPASE Lab Routine Epigastric pain Elevated lipase Expected: 11/06/2024, Expires: 02/05/2025 [facility] Work Phone: Comment on above: Expected: 11/06/2024, Expires: Start: 11-04-2024 End: 11-04-2024 Patient encounter procedure 11/04/2024 3:40 PM EST Office Visit Family [facility] [address] [place] [address] Henok Martinez MD [address] [place] [address] 6 month follow up [facility] Comment on above: 6 month follow up Start: 11-04-2024 End: 02-03-2025 CBC W Auto Differential panel - Blood COMPLETE BLOOD COUNT AND DIFFERENTIAL Lab Routine Primary hypertension Expected: 11/04/2024, Expires: 02/03/2025 [facility] Comment on above: Expected: 11/04/2024, Expires: Start: 11-04-2024 End: 02-03-2025 Comprehensive metabolic 2000 panel - Serum or Plasma COMPREHENSIVE METABOLIC PANEL Lab Routine Primary hypertension Expected: 11/04/2024, Expires: 02/03/2025 [facility] Comment on above: Expected: 11/04/2024, Expires: Start: 11-04-2024 End: 02-03-2025 Hemoglobin A1c in Blood HEMOGLOBIN A1C Lab Routine Type 2 diabetes mellitus without complication, without long-term current use of insulin (HCC) Expected: 11/04/2024, Expires: 02/03/2025 [facility] Work Phone: Comment on above: Expected: 11/04/2024, Expires: Start: 11-04-2024 End: 02-03-2025 Lipase [Enzymatic activity/volume] in Serum or Plasma LIPASE Lab Routine Epigastric pain Expected: 11/04/2024, Expires: 02/03/2025 [facility] Comment on above: Expected: 11/04/2024, Expires: Start: 11-04-2024 End: 02-03-2025 Lipid 1996 panel - Serum or Plasma LIPID PANEL BASIC Lab Routine Type 2 diabetes mellitus without complication, without long-term current use of insulin (HCC) Expected: 11/04/2024, Expires: 02/03/2025 [facility] Comment on above: Expected: 11/04/2024, Expires: 5 Start: 11-04-2024 End: 02-03-2025 Microalbumin/Creatinine [Mass Ratio] in Urine ALBUMIN/CREATININE RATIO, URINE Lab Routine Type 2 diabetes mellitus without complication, without long-term current use of insulin (HCC) Expected: 11/04/2024, Expires: 02/03/2025 [facility] Comment on above: Expected: 11/04/2024, Expires: 5 Start: 10-14-2024 End: 11-12-2025 RF videography Hypopharynx and Esophagus Views W liquid and paste contrast PO during swallowing XR MODIFIED BARIUM SWALLOW W SPEECH THERAPY Radiology Routine Oropharyngeal dysphagia Expected: 10/14/2024, Expires: 11/12/2025 [facility] Work Phone: Comment on above: Expected: 10/14/2024, Expires: 6 Start: 09-17-2024 Hepatitis B screening Urine Albumin:Creatinine Ratio [facility] Start: 09-17-2024 Hepatitis B surface antibody level LDL Cholesterol [facility] Start: 09-05-2024 Covid-19 Vaccine ( season) Covid-19 Vaccine ( season) [facility] Comment on above: Postponed from 06/28/2023 (Declined at t his time) Start: 09-05-2024 Hepatitis B Vaccine (1 of 3 - Risk 3-dose series) Hepatitis B Vaccine (1 of 3 - Risk 3-dose series) [facility] Comment on above: Postponed from 2000 (Declined at t his time) Start: 08-01-2024 Hemoglobin A1c measurement HbA1C [facility] Start: 06-28-2024 Influenza vaccination [facility] Start: 06-10-2024 End: 06-10-2024 Patient encounter procedure 06/10/2024 2:00 PM EDT Office Visit Endocrinology [address] [place] [address] Margaret Macdonald, SHY.POLE INCISOR OPERATOR [address] [place] [address] Type 2 diabetes mellitus without complication, without long-term current use of insulin (HCC) [E11.9] Endocrinology Comment on above: Type 2 diabetes mellitus without complic ation, without long-term current use of insulin (HCC) [E11.9] Start: 06-06-2024 End: 06-06-2024 Patient encounter procedure 06/06/2024 8:00 AM EDT Appointment Radiology [address] [place] [address] X-ray Radiology Comment on above: X-ray Start: 06-05-2024 End: 06-05-2024 Patient encounter procedure 06/05/2024 11:45 AM EDT Office Visit Pulmonary Medicine [address] [place] [id number] Nancy Medley MD [address] [address] 6 month follow up Pulmonary Medicine Comment on above: 6 month follow up Start: 06-04-2024 Hemoglobin A1c measurement HbA1C [facility] Start: 05-20-2024 3 comp foot exam completed DIABETIC FOOT EXAM [facility] Start: 05-20-2024 COVID-19 VACCINE (3 - Pfizer series) COVID-19 VACCINE (3 - Pfizer series) [facility] Comment on above: Postponed from 04/26/2021 (Declined at t his time) Start: 05-20-2024 Diabetic foot examination Diabetic Foot Exam [facility] Start: 05-20-2024 SHINGRIX VACCINE (1 of 2) SHINGRIX VACCINE (1 of 2) [facility] Comment on above: Postponed from 1990 (Declined at t his time) Start: 05-20-2024 Urine microalbumin profile [facility] Comment on above: Postponed from 1959 (Declined at t his time) Start: 05-04-2024 End: 05-04-2025 CBC W Auto Differential panel - Blood COMPLETE BLOOD COUNT AND DIFFERENTIAL Lab Routine Anemia, unspecified type Expected: 05/04/2024, Expires: 05/04/2025 [facility] Work Phone: Comment on above: Expected: 05/04/2024, Expires: Start: 05-04-2024 End: 05-04-2025 Cobalamin (Vitamin B12) [Mass/volume] in Serum or Plasma VITAMIN B12 Lab Routine Anemia, unspecified type Expected: 05/04/2024, Expires: 05/04/2025 [facility] Comment on above: Expected: 05/04/2024, Expires: Start: 05-04-2024 End: 05-04-2025 Ferritin [Mass/volume] in Serum or Plasma FERRITIN Lab Routine Anemia, unspecified type Expected: 05/04/2024, Expires: 05/04/2025 [facility] Comment on above: Expected: 05/04/2024, Expires: Start: 05-04-2024 End: 05-04-2025 Folate [Mass/volume] in Serum or Plasma FOLATE, SERUM Lab Routine Anemia, unspecified type Expected: 05/04/2024, Expires: 05/04/2025 [facility] Comment on above: Expected: 05/04/2024, Expires: Start: 05-04-2024 End: 05-04-2025 Hemoglobin.gastrointestin al.lower [Presence] in Stool by Immunoassay IMMUNOCHEMICAL FECAL OCCULT BLOOD TEST Lab Routine Anemia, unspecified type Expected: 05/04/2024, Expires: 05/04/2025 [facility] Comment on above: Expected: 05/04/2024, Expires: Start: 05-04-2024 End: 05-04-2025 Iron and Iron binding capacity panel - Serum or Plasma IRON AND TIBC Lab Routine Anemia, unspecified type Expected: 05/04/2024, Expires: 05/04/2025 [facility] Comment on above: Expected: 05/04/2024, Expires: Start: 05-01-2024 End: 05-01-2024 Patient encounter procedure 05/01/2024 4:00 PM EDT Office Visit Family [facility] [place] [address] [place] [address] Henok Martinez MD [address] [place] [place] [address] [place] [address] 4-6 week follow up Family [facility] [place] Comment on above: 4-6 week follow up Start: 05-01-2024 End: 07-31-2024 Hemoglobin A1c in Blood [facility] Work Phone: Comment on above: Expected: 05/01/2024, Expires: 4 Start: 04-28-2024 End: 04-28-2024 Patient encounter procedure 04/28/2024 1:00 PM EDT Office Visit [facility] Ophthalmology [address] [place] [address] Emma Mcnally, OD [address] [place] [address] 10 month follow up-April or May Ophthalmology Comment on above: 10 month follow up-April or May Start: 04-26-2024 Influenza vaccination Influenza Vaccine (#1) [facility] Comment on above: Postponed from 06/28/2023 (Declined at t his time) Start: 04-09-2024 Glaucoma screening Dilated Retinal Exam [facility] Start: 04-09-2024 Hepatitis C antibody, confirmatory test DILATED RETINAL EXAM [facility] Start: 04-06-2024 End: 04-05-2025 XR Chest PA and Lateral XR CHEST 2V FRONTAL/LAT Radiology Routine Abnormal x-ray Expected: 04/06/2024, Expires: 04/05/2025 [facility] Work Phone: Comment on above: Expected: 04/06/2024, Expires: 5 Start: 03-15-2024 End: 06-14-2024 Basic metabolic 2000 panel - Serum or Plasma BASIC METABOLIC PNL Lab Routine Primary hypertension Expected: 03/15/2024, Expires: 06/14/2024 [facility] Work Phone: Comment on above: Expected: 03/15/2024, Expires: 4 Start: 03-15-2024 End: 06-14-2024 CBC W Auto Differential panel - Blood CBC + DIFF Lab Routine Atrial fibrillation, unspecified type (HCC) Expected: 03/15/2024, Expires: 06/14/2024 [facility] Work Phone: Comment on above: Expected: 03/15/2024, Expires: Start: 03-15-2024 End: 06-14-2024 Hemoglobin A1c in Blood HGB A1C Lab Routine Type 2 diabetes mellitus without complication, without long-term current use of insulin (HCC) Expected: 03/15/2024, Expires: 06/14/2024 [facility] Work Phone: Comment on above: Expected: 03/15/2024, Expires: Start: 03-12-2024 Hemoglobin A1c measurement HbA1C [facility] Start: 03-06-2024 End: 03-06-2024 Patient encounter procedure 03/06/2024 2:00 PM EDT Office Visit [facility] [address] [place] [address] Henok Martinez MD [address] [place] [address] 3 month f/u Family Medicine [facility] Comment on above: 3 month f/u Start: 03-05-2024 End: 06-04-2024 Basic metabolic 2000 panel - Serum or Plasma BASIC METABOLIC PANEL Lab Routine Hyperkalemia Expected: 03/05/2024, Expires: 06/04/2024 [facility] Work Phone: Comment on above: Expected: 03/05/2024, Expires: Start: 03-05-2024 End: 06-04-2024 CBC W Auto Differential panel - Blood COMPLETE BLOOD COUNT AND DIFFERENTIAL Lab Routine Leukocytosis, unspecified type Expected: 03/05/2024, Expires: 06/04/2024 [facility] Comment on above: Expected: 03/05/2024, Expires: Start: 03-04-2024 End: 03-04-2024 Patient encounter procedure 03/04/2024 2:20 PM EDT Office Visit [facility] [address] [place] [address] Henok Martinez MD [address] [facility] [place] [id number] [facility] 02-27-2024 discharge Family Medicine [facility] Comment on above: [facility] 02-27-2024 discharge Start: 03-04-2024 End: 06-03-2024 Comprehensive metabolic 2000 panel - Serum or Plasma [facility] Comment on above: Expected: 03/04/2024, Expires: Start: 03-04-2024 End: 06-03-2024 Thyrotropin [Units/volume] in Serum or Plasma [facility] Comment on above: Expected: 03/04/2024, Expires: Start: 02-16-2024 Hepatitis C antibody, confirmatory test DILATED RETINAL EXAM [facility] Start: 01-11-2024 Hepatitis B surface antibody level LDL CHOLESTEROL [facility] Start: 12-19-2023 End: 03-19-2024 Basic metabolic 2000 panel - Serum or Plasma BASIC METABOLIC PNL Lab Routine Type 2 diabetes mellitus without complication, without long-term current use of insulin (HCC) Expected: 12/19/2023, Expires: 03/19/2024 [facility] Work Phone: Comment on above: Expected: 12/19/2023, Expires: Start: 12-19-2023 End: 03-19-2024 Hemoglobin A1c in Blood HGB A1C Lab Routine Type 2 diabetes mellitus without complication, without long-term current use of insulin (HCC) Expected: 12/19/2023, Expires: 03/19/2024 [facility] Work Phone: Comment on above: Expected: 12/19/2023, Expires: Start: 12-18-2023 Hemoglobin A1c/Hemoglobin.total in Blood HbA1C [facility] Start: 10-28-2023 Behavioral Health Screening Behavioral Health Screening [facility] Start: 09-05-2023 End: 12-05-2023 ALBUMIN/CREAT RATIO RND UR ALBUMIN/CREAT RATIO RND UR Lab Routine Type 2 diabetes mellitus without complication, without long-term current use of insulin (HCC) Expected: 09/05/2023, Expires: 12/05/2023 [facility] Work Phone: Comment on above: Expected: 09/05/2023, Expires: Start: 09-05-2023 End: 12-05-2023 CBC W Auto Differential panel - Blood CBC + DIFF Lab Routine 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 Type 2 diabetes mellitus without complication, without long-term current use of insulin (HCC) Expected: 09/05/2023, Expires: 12/05/2023 [facility] Work Phone: Comment on above: Expected: 09/05/2023, Expires: 4 Start: 09-05-2023 End: 12-05-2023 Comprehensive metabolic 2000 panel - Serum or Plasma COMP METABOLIC PANEL Lab Routine Primary hypertension Type 2 diabetes mellitus without complication, without long-term current use of insulin (HCC) Expected: 09/05/2023, Expires: 12/05/2023 [facility] Work Phone: Comment on above: Expected: 09/05/2023, Expires: 4 Start: 09-05-2023 End: 12-05-2023 Hemoglobin A1c in Blood HGB A1C Lab Routine Type 2 diabetes mellitus without complication, without long-term current use of insulin (HCC) Expected: 09/05/2023, Expires: 12/05/2023 [facility] Work Phone: Comment on above: Expected: 09/05/2023, Expires: Start: 09-05-2023 End: 12-05-2023 Lipid 1996 panel - Serum or Plasma LIPID PANEL BASIC Lab Routine Type 2 diabetes mellitus without complication, without long-term current use of insulin (HCC) Expected: 09/05/2023, Expires: 12/05/2023 [facility] Work Phone: Comment on above: Expected: 09/05/2023, Expires: Start: 08-31-2023 Hepatitis B screening URINE ALBUMIN:CREATININE RATIO [facility] Start: 08-31-2023 Hepatitis B surface antibody level LDL CHOLESTEROL [facility] Start: 07-10-2023 Hemoglobin A1c/Hemoglobin.total in Blood HBA1C [facility] Start: 06-28-2023 Covid-19 Vaccine () Covid-19 Vaccine () [facility] Start: 06-28-2023 Influenza vaccination [facility] Start: 04-26-2023 End: 06-26-2023 Hemoglobin A1c in Blood HGB A1C Lab Routine Type 2 diabetes mellitus without complication, without long-term current use of insulin (HCC) Expected: 04/26/2023, Expires: 06/26/2023 [facility] Work Phone: Comment on above: Expected: 04/26/2023, Expires: Start: 04-26-2023 Influenza vaccination INFLUENZA (#1) [facility] Comment on above: Postponed from 06/28/2022 (Declined at t his time) Start: 04-12-2023 Hemoglobin A1c/Hemoglobin.total in Blood HBA1C [facility] Start: 04-01-2023 End: 06-01-2023 Basic metabolic 2000 panel - Serum or Plasma BASIC METABOLIC PNL Lab Routine Primary hypertension Expected: 04/01/2023, Expires: 06/01/2023 [facility] Work Phone: Comment on above: Expected: 04/01/2023, Expires: 3 Start: 04-01-2023 End: 06-01-2023 Hemoglobin A1c in Blood HGB A1C Lab Routine Type 2 diabetes mellitus without complication, without long-term current use of insulin (HCC) Expected: 04/01/2023, Expires: 06/01/2023 [facility] Work Phone: Comment on above: Expected: 04/01/2023, Expires: 3 Start: 03-31-2023 [facility] Start: 03-30-2023 [facility] Start: 02-28-2023 Hemoglobin A1c/Hemoglobin.total in Blood HBA1C [facility] Start: 12-02-2022 End: 02-01-2023 Comprehensive metabolic 2000 panel - Serum or Plasma COMP METABOLIC PANEL Lab Routine Type 2 diabetes mellitus without complication, without long-term current use of insulin (HCC) Expected: 12/02/2022, Expires: 02/01/2023 [facility] Work Phone: Comment on above: Expected: 12/02/2022, Expires: 3 Start: 12-02-2022 End: 02-01-2023 Hemoglobin A1c in Blood HGB A1C Lab Routine Type 2 diabetes mellitus without complication, without long-term current use of insulin (HCC) Expected: 12/02/2022, Expires: 02/01/2023 [facility] Work Phone: Comment on above: Expected: 12/02/2022, Expires: 3 Start: 12-02-2022 End: 02-01-2023 Lipid 1996 panel - Serum or Plasma LIPID PANEL BASIC Lab Routine Type 2 diabetes mellitus without complication, without long-term current use of insulin (HCC) Expected: 12/02/2022, Expires: 02/01/2023 [facility] Work Phone: Comment on above: Expected: 12/02/2022, Expires: 3 Start: 10-28-2022 ADVANCE DIRECTIVE DISCUSSION ADVANCE DIRECTIVE DISCUSSION [facility] Start: 10-28-2022 DEPRESSION ASSESSMENT DEPRESSION ASSESSMENT [facility] Start: 09-25-2022 Hepatitis B screening URINE ALBUMIN:CREATININE RATIO [facility] Start: 09-25-2022 Hepatitis B surface antibody level LDL CHOLESTEROL [facility] Start: 06-28-2022 Influenza vaccination [facility] Start: 04-30-2022 End: 06-30-2022 Hemoglobin A1c/Hemoglobin.total in Blood HGB A1C Lab Routine Type 2 diabetes mellitus without complication, without long-term current use of insulin (HCC) Expected: 04/30/2022, Expires: 06/30/2022 [facility] Work Phone: Comment on above: Expected: 04/30/2022, Expires: 2 Start: 04-27-2022 Hemoglobin A1c/Hemoglobin.total in Blood HBA1C [facility] Start: 01-26-2022 End: 03-28-2022 Hemoglobin A1c/Hemoglobin.total in Blood [facility] Work Phone: Comment on above: Expected: 01/26/2022, Expires: 2 Start: 12-25-2021 Hemoglobin A1c/Hemoglobin.total in Blood HBA1C [facility] Start: 10-28-2021 ADVANCE DIRECTIVE DISCUSSION ADVANCE DIRECTIVE DISCUSSION [facility] Start: 10-28-2021 DEPRESSION ASSESSMENT DEPRESSION ASSESSMENT [facility] Start: 08-01-2021 COVID-19 VACCINE (3 - Booster for Pfizer series) COVID-19 VACCINE (3 - Booster for Pfizer series) [facility] Start: 04-26-2021 COVID-19 VACCINE (3 - Booster for Pfizer series) COVID-19 VACCINE (3 - Booster for Pfizer series) [facility] Start: 2015 RSV Vaccine (1 - 1-dose 75+ series) RSV Vaccine (1 - 1-dose 75+ series) [facility] Start: 2005 BONE DENSITY BONE DENSITY [facility] Start: 2005 PNEUMOVAX AGE 65 AND OVER WITH 5YR LOOKBACK (#1) PNEUMOVAX AGE 65 AND OVER WITH 5YR LOOKBACK (#1) [facility] Start: 05-28-2005 Medicare Annual Wellness Visit Medicare Annual Wellness Visit [facility] Start: 2000 Hepatitis B Vaccine (1 of 3 - Risk 3-dose series) Hepatitis B Vaccine (1 of 3 - Risk 3-dose series) [facility] Start: 2000 RSV Vaccine (1 - 1-dose 60+ series) RSV Vaccine (1 - 1-dose 60+ series) [facility] Start: 1990 SHINGRIX VACCINE (1 of 2) SHINGRIX VACCINE (1 of 2) [facility] Start: 1959 Urine microalbumin profile [facility] Start: 1958 SPIROMETRY SPIROMETRY [facility] Start: 1951 Screening for malignant neoplasm of cervix Cervical Cancer Screening [facility] Start: 1950 3 comp foot exam completed DIABETIC FOOT EXAM [facility] Start: 1950 Hepatitis C antibody, confirmatory test DILATED RETINAL EXAM [facility] Start: 1946 PNEUMOCOCCAL: 65+ (1 - PCV) PNEUMOCOCCAL: 65+ (1 - PCV) [facility] Cancer antigen 19-9 measurement [facility] Catheterization of l eft heart [facility] End: 01-25-2026 CBC W Auto Differential panel - Blood COMPLETE BLOOD COUNT AND DIFFERENTIAL Lab Routine 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) Once per week for 26 Occurrences starting 01/25/2025 until 01/25/2026, 1 completed [facility] Work Phone: Comment on above: Once per week for 26 Occurrences startin g 01/25/2025 until 01/25/2026, 1 completed End: 09-05-2023 COLONOSCOPY DIAGNOSTIC COLONOSCOPY DIAGNOSTIC Endoscopy Routine Change in bowel habits 1 Occurrences starting 09/05/2022 until 09/05/2023 [facility] Work Phone: Comment on above: 1 Occurrences starting 09/05/2022 until 09/05/2023 End: 01-25-2026 Comprehensive metabolic 2000 panel - Serum or Plasma COMPREHENSIVE METABOLIC PANEL Lab Routine 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) Once per week for 26 Occurrences starting 01/25/2025 until 01/25/2026, 1 completed [facility] Comment on above: Once per week for 26 Occurrences startin g 01/25/2025 until 01/25/2026, 1 completed End: 06-24-2026 CT Abdomen and Pelvis W contrast IV CT ABD/PEL W IVCON Radiology Routine 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) Adenocarcinoma of head of pancreas (HCC) 1 Occurrences starting 05/25/2025 until 06/24/2026 [facility] Work Phone: Comment on above: 1 Occurrences starting 05/25/2025 until 06/24/2026 CT Abdomen and Pelvi s W contrast IV CT ABD/PEL W IVCON Radiology Routine 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) Adenocarcinoma of head of pancreas (HCC) 05/26/2025 3:04 PM EDT [facility] Work Phone: End: 06-24-2026 CT Chest W contrast IV CT CHEST W IVCON Radiology Routine 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) Adenocarcinoma of head of pancreas (HCC) 1 Occurrences starting 05/25/2025 until 06/24/2026 [facility] Comment on above: 1 Occurrences starting 05/25/2025 until 06/24/2026 CT Chest W contrast IV CT CHEST W IVCON Radiology Routine 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) Adenocarcinoma of head of pancreas (HCC) 05/26/2025 3:04 PM EDT [facility] End: 03-09-2024 Ct pelvis w/contrast material CT PELVIS W IVCON Radiology Routine Pelvic and perineal pain 1 Occurrences starting 02/08/2023 until 03/09/2024 [facility] Work Phone: Comment on above: 1 Occurrences starting 02/08/2023 until 03/09/2024 End: 12-16-2023 Ct thorax w/o contrast material CT CHEST WO IVCON Radiology Routine Chronic cough Abnormal chest x-ray 1 Occurrences starting 11/16/2022 until 12/16/2023 [facility] Work Phone: Comment on above: 1 Occurrences starting 11/16/2022 until 12/16/2023 End: 04-06-2026 ERCP ERCP Endoscopy Routine RUQ pain 1 Occurrences starting 04/06/2025 until 04/06/2026 [facility] Work Phone: Comment on above: 1 Occurrences starting 04/06/2025 until 04/06/2026 Insj tunneled ctr va d w/subq port age 5 yr/> INSERTION PORT VENOUS ACCESS ADULT 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) [facility] End: 10-31-2023 LUNG DIFFUSION CAPACITY (DLCO) LUNG DIFFUSION CAPACITY (DLCO) PFT Routine Mild intermittent asthma without complication 1 Occurrences starting 10/01/2022 until 10/31/2023 [facility] Work Phone: Comment on above: 1 Occurrences starting 10/01/2022 until 10/31/2023 End: 10-31-2023 LUNG VOLUMES LUNG VOLUMES PFT Routine Mild intermittent asthma without complication 1 Occurrences starting 10/01/2022 until 10/31/2023 [facility] Work Phone: Comment on above: 1 Occurrences starting 10/01/2022 until 10/31/2023 Magnesium measurement [facility] Patient Education [facility] Work Phone: Patient referral [facility] Work Phone: End: 10-31-2023 SPIROMETRY - BASELINE AND POST DILATOR SPIROMETRY - BASELINE AND POST DILATOR PFT Routine Mild intermittent asthma without complication 1 Occurrences starting 10/01/2022 until 10/31/2023 [facility] Work Phone: Comment on above: 1 Occurrences starting 10/01/2022 until 10/31/2023 Stroke after atrial fibrillation 5 year risk [#] [place] 2002 IR PORTOCATH PLACEMENT Radiology Routine 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) Ordered: 01/28/2025 [facility] Work Phone: Comment on above: Ordered: 01/28/2025 End: 12-04-2025 US Abdomen RUQ US ABD RIGHT UPPER QUADRANT Radiology Routine Epigastric pain 1 Occurrences starting 11/04/2024 until 12/04/2025 [facility] Comment on above: 1 Occurrences starting 11/04/2024 until 12/04/2025 US Abdomen RUQ US ABD RIGHT UPP ER QUADRANT Radiology Routine Epigastric pain Elevated lipase 11/12/2024 2:54 PM EST [facility] Work Phone: [facility] End: 04-03-2025 XR Chest PA and Lateral XR CHEST 2V FRONTAL/LAT Radiology Routine Bronchitis 1 Occurrences starting 03/04/2024 until 04/03/2025 [facility] Work Phone: Comment on above: 1 Occurrences starting 03/04/2024 until 04/03/2025 XR Chest PA and Lateral XR CHEST 2V FRONTAL/LAT Radiology Routine Bronchitis 03/04/2024 3:46 PM EDT [facility] End: 12-04-2025 XR Chest PA and Lateral XR CHEST 2V FRONTAL/LAT Radiology Routine Hemoptysis 1 Occurrences starting 11/04/2024 until 12/04/2025 [facility] Comment on above: 1 Occurrences starting 11/04/2024 until 12/04/2025 End: 07-05-2025 XR Ribs - right Views and Chest PA XR RIBS/CHEST 3V AP RIB/OBLS/CXR RIGHT Radiology Routine Rib pain on right side 1 Occurrences starting 06/05/2024 until 07/05/2025 [facility] Work Phone: Comment on above: 1 Occurrences starting 06/05/2024 until 07/05/2025 [facility] Immunizations Immunization Date Immunization Notes Care Provider Fa cili 03-01-2021 COVID-19 vaccine, ag e 12+ yr (PFIZER-BIONTECH - PURPLE TOP) Henok Martinez MD Work Phone: [facility] 02-08-2021 COVID-19 vaccine, ag e 12+ yr (PFIZER-BIONTECH - PURPLE TOP) Henok Martinez MD Work Phone: [facility] Payers Date Payer Category Payer Medicare [id number] 2024 Self-pay [id number] 2023 Medicaid [id number] 2023 Self-pay [id number] 2021 [place] [id number] 2021-Present [phone] [address] [place] [address] Medicaid [id number] 2021 Medicaid [id number] 2005 Medicare MEDICARE MEDICAR E A AND B [id number] 2005-Present [phone] [address] [address] [place] [address] Medicare [id number] 2005 Medicare [id number] 2005 Medicare [id number] Unknown [id number] Unknown [id number] Unknown [id number] Unknown [id number] Unknown [id number] Unknown [id number] Unknown [id number] Unknown [id number] Unknown [id number] Unknown [id number] Unknown [id number] Unknown [id number] Unknown [id number] Social History Date Type Detail Facility Start: 09-14-2021 End: 11-16-2022 Tobacco smoking status NHIS Ex-smoker [facility] Start: 09-14-2021 End: 11-16-2022 Tobacco use and exposure Smokeless tobacco non-user [facility] Start: 01-26-2022 End: 05-25-2025 Alcohol intake Ex-drinker (finding) [facility] Start: 1940 Sex Assigned At Not on file [facility] Start: 01-16-2022 End: 10-01-2022 Exposure to SARS-CoV-2 (event) Not sure [facility] History of tobacco use Current smoker [facility] Start: 11-16-2022 Tobacco Comment Light smoker f or 7 years in early adulthood [facility] Start: 03-07-2023 End: 02-25-2024 Tobacco smoking status NHIS Unknown if ever smoked [facility] Start: 1940 Sex Assigned At Female [facility] Start: 04-09-2023 End: 06-25-2023 History of Social function [facility] Work Phone: Start: 04-09-2023 End: 06-25-2023 Tobacco use panel [facility] Work Phone: Adult Depression Screening Assessment 0 [facility] Work Phone: Has the [employer], or [employer] threatened to shut off services in your home in past 12Mo No [facility] Work Phone: (I/We) worried wheth er (my/our) food would run out before (I/we) got money to buy more. Never true [facility] Start: 01-10-2025 End: 01-14-2025 Sex Female (finding) [facility] NEGATED: Highlighted row Not [facility] Medical Equipment Procedure Code Equipment Code Equipment Origin al Text Equipment Identifier Dates Stent Advanix Na viflex 10fr [place] Thin Wall Plastic 7cm Biliary - [id number] Start: 01-15-2025 [id number] Start: 01-23-2025 End: 02-22-2025 Use with blood g lucose test 2 times daily. Insulin Dep? Yes [id number] Start: 01-23-2025 Test 4 times zenia ly, Insulin Dep? Yes dm 2 uncontrolled. [id number] Start: 01-29-2025 Test Four times a day. Insulin Dep? Yes uncontrolled dm [id number] Start: 01-29-2025 1 each two times a day. [id number] Start: 03-18-2025 End: 04-17-2025 Goals Date Patient Goal Desired Activity /State Functional Status Date Assessment Result Facility 02-14-2025 Are you deaf, or do you have serious difficulty hearing No 02/14/2025 2:14 PM Gloria Nolasco RN No [facility] 02-14-2025 Are you blind, or do you have serious difficulty seeing, even when wearing glasses No 02/14/2025 2:14 PM Gloria Nolasco RN No [facility] 02-14-2025 Do you have serious difficulty walking or climbing stairs Yes 02/14/2025 2:14 PM Gloria Nolasco RN Yes [facility] 02-14-2025 Do you have difficul ty dressing or bathing Yes 02/14/2025 2:14 PM Gloria Nolasco RN Yes [facility] 02-14-2025 Because of a physica l, mental, or emotional condition, do you have difficulty doing errands alone such as visiting a physician's office or shopping Yes 02/14/2025 2:14 PM Gloria Nolasco RN Yes [facility] 01-23-2025 Are you deaf, or do you have serious difficulty hearing No 01/23/2025 2:02 PM Nadeen Hoang RN No [facility] 01-23-2025 Are you blind, or do you have serious difficulty seeing, even when wearing glasses No 01/23/2025 2:02 PM Nadeen Hoang RN No [facility] 01-23-2025 Do you have serious difficulty walking or climbing stairs No 01/23/2025 2:02 PM Nadeen Hoang RN No [facility] 01-23-2025 Do you have difficul ty dressing or bathing No 01/23/2025 2:02 PM Nadeen Hoang RN No [facility] 01-23-2025 Because of a physica l, mental, or emotional condition, do you have difficulty doing errands alone such as visiting a physician's office or shopping No 01/23/2025 2:02 PM Nadeen Hoang RN No [facility] 01-14-2025 Functional status Ambulates;Up ad tia [facility] Work Phone: Mental Status Date Assessment Result Facility 02-14-2025 Because of a physica l, mental, or emotional condition, do you have serious difficulty concentrating, remembering, or making decisions No 02/14/2025 2:14 PM EDT Gloria Last, MAGNUS No [facility] 01-23-2025 Because of a physica l, mental, or emotional condition, do you have serious difficulty concentrating, remembering, or making decisions No 01/23/2025 2:02 PM EDT Nadeen Decker, MAGNUS No [facility] 01-14-2025 Cognitive function Voice/Name [facility] Work Phone: 01-09-2025 Cognitive function Level Of Cons ciousness Awake;Alert;Appropriate;Fol lows Commands [facility] Work Phone: 02-25-2024 Cognitive function Level Of Cons ciousness Awake;Alert;Appropriate;Fol lows Commands [facility] Work Phone: 04-22-2023 Cognitive function Level Of Cons ciousness Awake;Alert;Appropriate [facility] Work Phone: 04-05-2023 Cognitive function Level Of Cons ciousness Awake;Alert;Appropriate;Fol lows Commands [facility] Work Phone: 03-30-2023 Cognitive function Level Of Cons ciousness Awake;Alert;Appropriate;Fol lows Commands;Responds to vocal stimuli [facility] Work Phone: Clinical Notes 03-28-2021 to 05-26-2025 Reef Bobo Christianson RT(Dylan) - 05/26/2025 2:20 PM Skyler Kern MA - 05/26/2025 7:55 AM EDTTelephone Encounter - Fatoumata Glynn - 05/25/2025 4:00 PM EDTPatient Instructions Note Date & Type Note Facility 05-26-2025 History of Presen t illness Narrative Radiology Service Progress Note DATE OF SERVICE: May 26, 2025 TIME: 3:36 PM PATIENT IDENTITY VERIFICATION COMPLETED USING TWO (2) STANDARD IDENTIFIERS: Name and Date of confirmed by patient verbally. FALL SCREENING: Has the patient had 2 falls in the last year or 1 fall with injury or currently using an Ambulatory Assistive Device (Walker, Cane, Wheelchair, Crutches, etc.)? No PATIENT GENDER DATA: Assigned female at . status: : No status: NO. PATIENT RELEVANT IMPLANT DATA REVIEWED: Yes PATIENT PRESENTS WITH AN IMPLANTABLE OR ATTACHED HAT AND CAP DRYING ROOM ATTENDANT: No ALLERGIES: Reviewed and unchanged CONTRAST ALLERGY: NO. EXAM: CT -CONTRAST INDUCED NEPHROPATHY RISK FACTORS: Patient age > 60 years CREATININE: Creatinine Date Value Ref Range Status 05/25/2025 0.59 0.58 - 0.96 mg/dL Final 02/22/2025 0.52 (L) 0.58 - 0.96 mg/dL Final 02/14/2025 0.54 (L) 0.58 - 0.96 mg/dL Final Estimated Glomerular Filtration Rate Date Value Ref Range Status 05/25/2025 89 >=60 mL/min/1.73m Final Comment: Estimated Glomerular Filtration Rate (eGFR) is calculated using the 2020 CKD-EPI creatinine equation. This equation utilizes serum creatinine, sex, and age as parameters. The creatinine assay has traceable calibration to isotope dilution-mass spectrometry. Refer to KDIGO guidelines for clinical interpretation. In patients with unstable renal function, e.g. those with acute kidney injury, the eGFR may not accurately reflect actual GFR. eGFR- Date Value Ref Range Status 09/25/2021 >60 Final P.O.C.T. RESULTS: POC done: Yes, See Lab Tab May 26, 2025 TREATMENT: N/A PERIPHERAL IV DATA: Ambulatory: A peripheral IV was started in the Right antecubital site with a Angio cath: 22 gauge. RADIOLOGY DEPARTMENT: CT; Exam(s) Completed: Chest Abdomen Pelvis SIGNATURE: RT Meghan(R) PATIENT NAME: Telma Tineo DATE: May 26, 2025 TIME: 3:36 PM documented in this encounter [facility] 05-26-2025 Note HNO ID: [id number] Author: BOBO PARHAM RT(R) Service: ? Author Type: Service Tech Type: Progress Notes Filed: 05/26/2025 15:37 Note Text: Radiology Service Progress Note DATE OF SERVICE: May 26, 2025 TIME: 3:36 PM PATIENT IDENTITY VERIFICATION COMPLETED USING TWO (2) STANDARD IDENTIFIERS: Name and Date of confirmed by patient verbally. FALL SCREENING: Has the patient had 2 falls in the last year or 1 fall with injury or currently using an Ambulatory Assistive Device (Walker, Cane, Wheelchair, Crutches, etc.)? No PATIENT GENDER DATA: Assigned female at . status: : No status: NO. PATIENT RELEVANT IMPLANT DATA REVIEWED: Yes PATIENT PRESENTS WITH AN IMPLANTABLE OR ATTACHED HAT AND CAP DRYING ROOM ATTENDANT: No ALLERGIES: Reviewed and unchanged CONTRAST ALLERGY: NO. EXAM: CT -CONTRAST INDUCED NEPHROPATHY RISK FACTORS: Patient age > 60 years CREATININE: Creatinine Date Value Ref Range Status 05/25/2025 0.59 0.58 - 0.96 mg/dL Final 02/22/2025 0.52 (L) 0.58 - 0.96 mg/dL Final 02/14/2025 0.54 (L) 0.58 - 0.96 mg/dL Final Estimated Glomerular Filtration Rate Date Value Ref Range Status 05/25/2025 89 >=60 mL/min/1.73m? Final Comment: Estimated Glomerular Filtration Rate (eGFR) is calculated using the 2020 CKD-EPI creatinine equation. This equation utilizes serum creatinine, sex, and age as parameters. The creatinine assay has traceable calibration to isotope dilution-mass spectrometry. Refer to KDIGO guidelines for clinical interpretation. In patients with unstable renal function, e.g. those with acute kidney injury, the eGFR may not accurately reflect actual GFR. eGFR- Date Value Ref Range Status 09/25/2021 >60 Final P.O.C.T. RESULTS: POC done: Yes, See Lab Tab May 26, 2025 TREATMENT: N/A PERIPHERAL IV DATA: Ambulatory: A peripheral IV was started in the Right antecubital site with a Angio cath: 22 gauge. RADIOLOGY DEPARTMENT: CT; Exam(s) Completed: Chest Abdomen Pelvis SIGNATURE: RT Meghan(R) PATIENT NAME: Telma Tineo DATE: May 26, 2025 TIME: 3:36 PM [facility] 05-26-2025 Note HNO ID: [id number] Author: SKYLER BHATIA MA Service: ? Author Type: Logistics Operations Director Type: Progress Notes Filed: 05/26/2025 09:04 Note Text: POPULATION HEALTH NAVIGATION OUTREACH Action/I LVM MYCHART MESSAGE SENT Topic Due (Y or N) Comments Medicare Wellness y PCP Follow up Colorectal Cancer Screening Controlling Blood Pressure A1C y HCC Flu Vaccine Care Everywhere Reviewed MyChart Activation Updated Appointment Note Reason for Outreach Care Gap/HCC or Scheduling Wellness Visits Care Gaps due: Medicare Annual Wellness Visit Patient Contacted: Unable or unnecessary to reach patient: Left message MyChart message sent Navigation Signature: Skyler Bhatia MA May 26, 2025 7:56 AM [facility] 05-26-2025 History of Presen t illness Narrative POPULATION HEALTH NAVIGATION OUTREACH Action/I LV MYCHART MESSAGE SENT Topic Due (Y or N) Comments Medicare Wellness y PCP Follow up Colorectal Cancer Screening Controlling Blood Pressure A1C y HCC Flu Vaccine Care Everywhere Reviewed MyChart Activation Updated Appointment Note Reason for Outreach Care Gap/HCC or Scheduling Wellness Visits Care Gaps due: Medicare Annual Wellness Visit Patient Contacted: Unable or unnecessary to reach patient: Left message Norstelhart message sent Navigation Signature: Skyler Bhatia MA May 26, 2025 7:56 AM documented in this encounter [facility] 05-26-2025 Note Patient Outreach (NE TNAV) TELMA TINEO ([id number]) 1940 F Date Time Provider Department 05/26/25 SKYLER BHATIA NETADRIANNAV During your visit today, we recorded the following information about you: Skyler Bhatia MA 05/26/2025 9:04 AM Signed POPULATION HEALTH NAVIGATION OUTREACH Action/FYI LVM GovtodayHART MESSAGE SENT Topic Due (Y or N) Comments Medicare Wellness y PCP Follow up Colorectal Cancer Screening Controlling Blood Pressure A1C y HCC Flu Vaccine Care Everywhere Reviewed MyChart Activation Updated Appointment Note Reason for Outreach Care Gap/HCC or Scheduling Wellness Visits Care Gaps due: Medicare Annual Wellness Visit Patient Contacted: Unable or unnecessary to reach patient: Left message Norstelhart message sent Navigation Signature: Skyler Bhatia MA May 26, 2025 7:56 AM Allergies As of Date: 05/26/2025 Noted Allergy Reaction PENICILLINS 09/14/2021 10 - Anaphylaxis TETRACYCLINE 09/14/2021 2 - Rash TRAMADOL 07/01/2024 5 - Intolerance Comments: Trembling Date Reviewed: 05/25/2025 Reviewed by: Carl Ortiz MA - Fully Assessed Reason for Visit: Population Health Navigation Outreach [3910] Cmt: ACO WORKBENC REJI PCSA Prescriptions as of 05/26/2025 - iv contrast (will be provided with radiology test) CT Chest ABD/PEL-Inject, intravenously, once for 1 dose.No IV access, insert saline lock prior to the beginning of sedation, infusion, injection of imaging exam. Discontinue saline lock post exam. If Pt. has a central line or IVAD, may access for administration according to line specific nursing protocol. Once exam is complete flush line and de-access according to line specific nursing protocol in the CT contrast administration guidelines link. - enteric contrast (will be provided with radiology test) For CT CHESTABD/PEL W IVCON Routine order Administer, As Directed One Time Only, via Oral, Rectal, both Oral and Rectal, Enteric Tube, Stoma or Indwelling Catheter, Enteric Contrast as designated per enteric contrast guidelines - ondansetron (ZOFRAN) 8 mg tablet Take 1 tablet by mouth every 8 hours as needed. - Blood-Glucose Sensor (FREESTYLE TOLU 3 PLUS SENSOR) benjamin Apply new sensor every fifteen (15) days to upper arm. - atorvastatin (LIPITOR) 20 mg tablet Take 1 tablet by mouth once daily. - losartan (COZAAR) 100 mg tablet Take 1 tablet by mouth once daily. - ELIQUIS 5 mg tab(s) Take 1 tablet by mouth two times a day. - insulin NPH-insulin regular 70/30 (NOVOLIN 70/30 U-100 INSULIN) 100 unit/mL suspension Inject 10 Units subcutaneously two times a day with meals. - Promethazine-DM (PHENERGAN-DM) 6.25-15 mg/5 mL syrup Take 5 mL by mouth four times a day as needed. - pantoprazole DR (PROTONIX) 40 mg tablet Take 1 tablet by mouth two times a day before meals at 6 am and 4 pm. - Lancets Test Four times a day. Insulin Dep? Yes uncontrolled dm - blood sugar diagnostic (BLOOD GLUCOSE TEST) test strip Test 4 times daily, Insulin Dep? Yes dm 2 uncontrolled. - blood sugar diagnostic test strip Use with blood glucose test 2 times daily, Insulin Dep? Yes - Lancets Use with blood glucose test 2 times daily. Insulin Dep? Yes - alcohol swabs Use with blood glucose test 2 times daily. Insulin Dep? Yes - glucose 4 gram chewable tablet Take 4 tablets by mouth as needed for low blood sugar. - Blood-Glucose Meter,Continuous (FREESTYLE TOLU 3 READER) [facility] Use to check blood sugar at least four (4) times daily. - metoprolol tartrate, short acting, (LOPRESSOR) 50 mg tablet Take 1.5 tablets by mouth two times a day. - PEG 400-propylene glycol (SYSTANE ULTRA) 0.4-0.3 % ophthalmic solution Use 1 Drop in both eyes three times a day. - amLODIPine (NORVASC) 10 mg tablet Take 10 mg by mouth once daily. - Blood Pressure Test Kit-Large (Mapidy ARM BP MONITOR) 1 Each once daily. 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] 09/14/2021 History of uterine cancer [Z85.42] 09/14/2021 Bronchiectasis without complication (HCC) [J47.*11/22/2022 Atrial fibrillation, unspecified type (HCC) [I4*04/15/2023 Candidiasis of vagina [B37.31] 05/20/2023 05/20/2023 Diagnosed: 05/20/2023 Chest pain [R07.9] 03/12/2023 07/01/2024 Diagnosed: 05/20/2023 Hyperlipidemia [E78.5] 05/20/2023 Diagnosed: 05/20/2023 Impaired cognition [R41.89] 05/20/2023 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 [facility] 05-25-2025 Telephone encounter Note Returned pt daughter call, who was returning my call from earlier today. [facility] 05-25-2025 Miscellaneous Notes Returned pt daughter call, who was returning my call from earlier today. Emilia Diaz, I am seeing this patient she has a plastic tent I think might need changing. She received a brief course of neoadjuvant chemo, but then stopped it due to side effects. Is now following up with me, I am updating her CT scans and will see her back after that. -- Dr Paramjit Hernandez, please schedule for an ERCP for biliary stent change. She has a history of pancreatic adenocarcinoma in the neck of the pancreas We had patient scheduled in March, but she cancelled because she was in [place]. LM to call me back. documented in this encounter [facility] 05-25-2025 Telephone encounter Note Emilia Diaz, I am seeing this patient she has a plastic tent I think might need changing. She received a brief course of neoadjuvant chemo, but then stopped it due to side effects. Is now following up with me, I am updating her CT scans and will see her back after that. -- Dr Paramjit Hernandez, please schedule for an ERCP for biliary stent change. She has a history of pancreatic adenocarcinoma in the neck of the pancreas We had patient scheduled in March, but she cancelled because she was in [place]. LM to call me back. [facility] 05-25-2025 Note HNO ID: [id number] Author: JUAN MIGUEL YUSUF MD Service: ? Author Type: Physician Type: Progress Notes Filed: 05/25/2025 14:02 Note Text: (Elements copied from my note dated February 22, 2025, have been reviewed and updated where appropriate, and all reflect current assessment and medical decision making from today's encounter, May 25, 2025) HISTORY OF PRESENT ILLNESS: Telma Tineo is a 84 year old female presented with painless jaundice, admitted initially at [facility], transferred for further work up at [facility]. Saw hepatobiliary surgery there, noted pancreatic mass. She underwent CBD stenting, and biopsy of mass at head of pancreas. Dx adenocarcinoma. Staging otherwise negative. Per surgery she is not currently resectable, they recommend neoadjuvant chemotherapy, followed by re assessment for surgery. Met with patient and her family today. She is a very active and functional lady, co morbidities noted, but well managed. Here for follow up, developed pneumonia was in hospital for 6 days discharged on February 14, 2025. Feels weak still, but still coughing up white to yellow phlegm. No more fever. Eating and drinking. Due to side effects of chemotherapy, she stopped the chemo. Last dose February 05, [address] Nguyễn subsequently CLINICAL IMPRESSION: Borderline resectable pancreatic adenocarcinoma Developed clinical pneumonia after day 8 cycle 1, remains weak. RECOMMENDATION/PLAN: 1. Plan re assess status of cancer with scans 2. See back me and Dr Stoner after scans done 3. Dr Diaz will see re stent change Written and verbal health teaching given to patient, patient verbalizes understanding and agrees with treatment plan. PAST MEDICAL HISTORY Diagnosis Date Allergies Lundberg's palsy Bronchiectasis (HCC) Gastroesophageal reflux disease without esophagitis History of CVA (cerebrovascular accident) Mild intermittent asthma without complication (HCC) Primary hypertension Type 2 diabetes mellitus without complication, without long-term current use of insulin (HCC) PAST SURGICAL HISTORY Procedure Laterality Date APPENDECTOMY CATARACT EXTRACTION HX Bilateral COLONOSCOPY SCREENING 10/04/2022 no specimens collected, No further screening colonoscopies required HEMORRHOIDECTOMY X's HYSTERECTOMY HX without bso PAST SURGICAL HISTORY OF ? repair of cystocele RHINOPLASTY N/A SLING OPER STRES INCONTINENCE TONSILLECTOMY AND ADENOIDECTOMY FAMILY HISTORY Problem Relation Age of Onset Pancreatic Cancer Mother Lung Cancer Father No Known Problems Sister No Known Problems Sister No Known Problems Sister No Known Problems Sister No Known Problems Sister Cancer Brother No Known Problems Brother Cancer Brother No Known Problems Brother Cancer Brother Heart disease Son No Ocular Disease No Family History Social History Tobacco Use Smoking status: Former Smokeless tobacco: Never Tobacco comments: Light smoker for 7 years in early adulthood Vaping Use Vaping status: Never Used Substance Use Topics Alcohol use: Not Currently Drug use: Never ALLERGIES: ALLERGIES Allergen Reactions Penicillins Anaphylaxis Tetracycline Rash Tramadol Intolerance Trembling CURRENT OUTPATIENT MEDICATIONS: ondansetron (ZOFRAN) 8 mg tablet Take 1 tablet by mouth every 8 hours as needed. atorvastatin (LIPITOR) 20 mg tablet Take 1 tablet by mouth once daily. losartan (COZAAR) 100 mg tablet Take 1 tablet by mouth once daily. ELIQUIS 5 mg tab(s) Take 1 tablet by mouth two times a day. insulin NPH-insulin regular 70/30 (NOVOLIN 70/30 U-100 INSULIN) 100 unit/mL suspension Inject 10 Units subcutaneously two times a day with meals. Promethazine-DM (PHENERGAN-DM) 6.25-15 mg/5 mL syrup Take 5 mL by mouth four times a day as needed. pantoprazole DR (PROTONIX) 40 mg tablet Take 1 tablet by mouth two times a day before meals at 6 am and 4 pm. glucose 4 gram chewable tablet Take 4 tablets by mouth as needed for low blood sugar. metoprolol tartrate, short acting, (LOPRESSOR) 50 mg tablet Take 1.5 tablets by mouth two times a day. PEG 400-propylene glycol (SYSTANE ULTRA) 0.4-0.3 % ophthalmic solution Use 1 Drop in both eyes three times a day. amLODIPine (NORVASC) 10 mg tablet Take 10 mg by mouth once daily. Blood-Glucose Sensor (FREESTYLE TOLU 3 PLUS SENSOR) benjamin Apply new sensor every fifteen (15) days to upper arm. Lancets Test Four times a day. Insulin Dep? Yes uncontrolled dm blood sugar diagnostic (BLOOD GLUCOSE TEST) test strip Test 4 times daily, Insulin Dep? Yes dm 2 uncontrolled. blood sugar diagnostic test strip Use with blood glucose test 2 times daily, Insulin Dep? Yes Lancets Use with blood glucose test 2 times daily. Insulin Dep? Yes alcohol swabs Use with blood glucose test 2 times daily. Insulin Dep? Yes Blood-Glucose Meter,Continuous (FREESTYLE TOLU 3 READER) [facility] Use to check blood sugar at least four (more content not included)... [facility] 05-25-2025 History of Presen t illness Narrative (Elements copied from my note dated February 22, 2025, have been reviewed and updated where appropriate, and all reflect current assessment and medical decision making from today's encounter, May 25, 2025) HISTORY OF PRESENT ILLNESS: Telma Tineo is a 84 year old female presented with painless jaundice, admitted initially at [facility], transferred for further work up at [facility]. Saw hepatobiliary surgery there, noted pancreatic mass. She underwent CBD stenting, and biopsy of mass at head of pancreas. Dx adenocarcinoma. Staging otherwise negative. Per surgery she is not currently resectable, they recommend neoadjuvant chemotherapy, followed by re assessment for surgery. Met with patient and her family today. She is a very active and functional lady, co morbidities noted, but well managed. Here for follow up, developed pneumonia was in hospital for 6 days discharged on February 14, 2025. Feels weak still, but still coughing up white to yellow phlegm. No more fever. Eating and drinking. Due to side effects of chemotherapy, she stopped the chemo. Last dose February 05, [address] Nguyễn subsequently CLINICAL IMPRESSION: Borderline resectable pancreatic adenocarcinoma Developed clinical pneumonia after day 8 cycle 1, remains weak. RECOMMENDATION/PLAN: 1. Plan re assess status of cancer with scans 2. See back me and Dr Stoner after scans done 3. Dr Diaz will see re stent change Written and verbal health teaching given to patient, patient verbalizes understanding and agrees with treatment plan. PAST MEDICAL HISTORY Diagnosis Date Allergies Lundberg's palsy Bronchiectasis (HCC) Gastroesophageal reflux disease without esophagitis History of CVA (cerebrovascular accident) Mild intermittent asthma without complication (HCC) Primary hypertension Type 2 diabetes mellitus without complication, without long-term current use of insulin (HCC) PAST SURGICAL HISTORY Procedure Laterality Date APPENDECTOMY CATARACT EXTRACTION HX Bilateral COLONOSCOPY SCREENING 10/04/2022 no specimens collected, No further screening colonoscopies required HEMORRHOIDECTOMY X's HYSTERECTOMY HX without bso PAST SURGICAL HISTORY OF ? repair of cystocele RHINOPLASTY N/A SLING OPER STRES INCONTINENCE TONSILLECTOMY & ADENOIDECTOMY <AGE 12 FAMILY HISTORY Problem Relation Age of Onset Pancreatic Cancer Mother Lung Cancer Father No Known Problems Sister No Known Problems Sister No Known Problems Sister No Known Problems Sister No Known Problems Sister Cancer Brother No Known Problems Brother Cancer Brother No Known Problems Brother Cancer Brother Heart disease Son No Ocular Disease No Family History Social History Tobacco Use Smoking status: Former Smokeless tobacco: Never Tobacco comments: Light smoker for 7 years in early adulthood Vaping Use Vaping status: Never Used Substance Use Topics Alcohol use: Not Currently Drug use: Never ALLERGIES: ALLERGIES Allergen Reactions Penicillins Anaphylaxis Tetracycline Rash Tramadol Intolerance Trembling CURRENT OUTPATIENT MEDICATIONS: ondansetron (ZOFRAN) 8 mg tablet Take 1 tablet by mouth every 8 hours as needed. atorvastatin (LIPITOR) 20 mg tablet Take 1 tablet by mouth once daily. losartan (COZAAR) 100 mg tablet Take 1 tablet by mouth once daily. ELIQUIS 5 mg tab(s) Take 1 tablet by mouth two times a day. insulin NPH-insulin regular 70/30 (NOVOLIN 70/30 U-100 INSULIN) 100 unit/mL suspension Inject 10 Units subcutaneously two times a day with meals. Promethazine-DM (PHENERGAN-DM) 6.25-15 mg/5 mL syrup Take 5 mL by mouth four times a day as needed. pantoprazole DR (PROTONIX) 40 mg tablet Take 1 tablet by mouth two times a day before meals at 6 am and 4 pm. glucose 4 gram chewable tablet Take 4 tablets by mouth as needed for low blood sugar. metoprolol tartrate, short acting, (LOPRESSOR) 50 mg tablet Take 1.5 tablets by mouth two times a day. PEG 400-propylene glycol (SYSTANE ULTRA) 0.4-0.3 % ophthalmic solution Use 1 Drop in both eyes three times a day. amLODIPine (NORVASC) 10 mg tablet Take 10 mg by mouth once daily. Blood-Glucose Sensor (UpCitySTYLE TOLU 3 PLUS SENSOR) benjamin Apply new sensor every fifteen (15) days to upper arm. Lancets Test Four times a day. Insulin Dep? Yes uncontrolled dm blood sugar diagnostic (BLOOD GLUCOSE TEST) test strip Test 4 times daily, Insulin Dep? Yes dm 2 uncontrolled. blood sugar diagnostic test strip Use with blood glucose test 2 times daily, Insulin Dep? Yes Lancets Use with blood glucose test 2 times daily. Insulin Dep? Yes alcohol swabs Use with blood glucose test 2 times daily. Insulin Dep? Yes Blood-Glucose Meter,Continuous (FREESTYLE TOLU 3 READER) [facility] Use to check blood sugar at least four (4) times daily. Blood Pressure Test Kit-Large (SURELIFE ARM BP MONITOR) 1 Each once daily. REVIEW OF SYSTEMS: GENERAL: No fever, night sweats, weight loss or malaise. All other reviewed and negative other than HPI. PHYSICAL EXAMINATION: VITAL SIGNS: BP 140/69 Pulse 73 Temp (Src) 98.5 (Temporal) Wt 154 lb (69.9kg) SpO2 98% GENERAL APPEARANCE: Well appearing, in no acute distress, alert and oriented x3, well-hydrated, well nourished. Looks good today. I spent a total of 30 minutes on the date of the service which included preparing to see the patient, [id number] patient care, completing clinical documentation, obtaining and/or reviewing separately obtained history, counseling and educating the patient/family/caregiver, ordering medications, tests, or procedures, communicating with other HCPs (not separately reported), independently interpreting results (not separately reported), communicating results to the patient/family/caregiver, and care coordination (not separately reported). Electronically Signed: Juan Miguel Yusuf MD May 25, 2025 documented in this encounter [facility] 05-20-2025 Telephone encounter Note Spoke w pt daughter and she is scheduled for 05/[address] Yusuf. Will schedule w Dr. Stoner when she is here. Nasim Fragoso [facility] 05-20-2025 Miscellaneous Notes Spoke w pt daughter and she is scheduled for 05/[address] Yusuf. Will schedule w Dr. Stoner when she is here. Nasim Fragoso Call Sujata Aguirre at any time to schedule appointments 05/24 or after. muriel Ernst, calls and states that her Mom, Telma will be back in country on 05/23/25 and would like for her to be rescheduled with Dr. Yusuf and Dr. Stoner that they cancelled so she could go out of country to visit family. OK with anytime 05/24/25 or after. She also needs to reschedule with Dr. Diaz in GI at [facility]? Please call Sujata or Timothy to schedule. Elaina Silverio RN documented in this encounter [facility] 05-13-2025 Telephone encounter Note Call Sujata Aguirre at any time to schedule appointments 05/24 or after. muriel Ernst, calls and states that her Mom, Telma will be back in country on 05/23/25 and would like for her to be rescheduled with Dr. Yusuf and Dr. Stoner that they cancelled so she could go out of country to visit family. OK with anytime 05/24/25 or after. She also needs to reschedule with Dr. Diaz in GI at [facility]? Please call Sujata Aguirre to schedule. Elaina Silverio RN [facility] Work Phone: 04-22-2025 Telephone encounter Note Removed Lipitor as it has been refilled for a year through 03/30/26. Unsure if Pt could have gone through that much Zofran. The patient has been identified by name and date of : Yes Caregiver verified no other encounters exist for this prescription request: Yes Caregiver confirmed with patient/requestor that no other refills are due, in the near future, with this provider at this time: Yes The last office visit in the department: 03/30/2025 Does the patient have a future office visit with this provider/department: No Visit date not found Requested Prescriptions Pending Prescriptions Disp Refills ondansetron (ZOFRAN) 8 mg tablet 30 tablet 2 Sig: Take 1 tablet by mouth every 8 hours as needed. Daina Ríos RN April 22, 2025 7:57 PM [facility] 04-22-2025 Miscellaneous Notes Removed Lipitor as it has been refilled for a year through 03/30/26. Unsure if Pt could have gone through that much Zofran. The patient has been identified by name and date of : Yes Caregiver verified no other encounters exist for this prescription request: Yes Caregiver confirmed with patient/requestor that no other refills are due, in the near future, with this provider at this time: Yes The last office visit in the department: 03/30/2025 Does the patient have a future office visit with this provider/department: No Visit date not found Requested Prescriptions Pending Prescriptions Disp Refills ondansetron (ZOFRAN) 8 mg tablet 30 tablet 2 Sig: Take 1 tablet by mouth every 8 hours as needed. Daina Ríos RN April 22, 2025 7:57 PM documented in this encounter [facility] 04-19-2025 Telephone encounter Note The following approved medication requests have been transmitted electronically. Requested Prescriptions Pending Prescriptions Disp Refills sucralfate (CARAFATE) 1 gram tablet 120 tablet 1 Sig: Take 1 tablet by mouth four times daily. Virginia Reina APRN.CNP [facility] 04-19-2025 Miscellaneous Notes The following approved medication requests have been transmitted electronically. Requested Prescriptions Pending Prescriptions Disp Refills sucralfate (CARAFATE) 1 gram tablet 120 tablet 1 Sig: Take 1 tablet by mouth four times daily. Virginia Reina APRN.CNP Prescription Refill Information The patient has been identified by name and date of : Yes Caregiver verified no other encounters exist for this prescription request: Yes Caregiver confirmed with patient/requestor that no other refills are due, in the near future, with this provider at this time: Yes The last office visit in the department: 03/30/25 Does the patient have a future office visit with this provider/department: No Requested Prescriptions Pending Prescriptions Disp Refills metoprolol tartrate, short acting, (LOPRESSOR) 50 mg tablet 270 tablet 1 Sig: Take 1.5 tablets by mouth two times a day. sucralfate (CARAFATE) 1 gram tablet 120 tablet 1 Sig: Take 1 tablet by mouth four times daily. Blood-Glucose Sensor (FREESTYLE TOLU 3 PLUS SENSOR) benjamin 6 each 4 Sig: Apply new sensor every fifteen (15) days to upper arm. *A prescription for Tolu sensors was sent to [facility] on 04/12/25. Pt is not due for refill. Jose Ortiz LPN April 19, 2025 5:39 PM documented in this encounter [facility] 04-19-2025 Telephone encounter Note Prescription Refill Information The patient has been identified by name and date of : Yes Caregiver verified no other encounters exist for this prescription request: Yes Caregiver confirmed with patient/requestor that no other refills are due, in the near future, with this provider at this time: Yes The last office visit in the department: 03/30/25 Does the patient have a future office visit with this provider/department: No Requested Prescriptions Pending Prescriptions Disp Refills metoprolol tartrate, short acting, (LOPRESSOR) 50 mg tablet 270 tablet 1 Sig: Take 1.5 tablets by mouth two times a day. sucralfate (CARAFATE) 1 gram tablet 120 tablet 1 Sig: Take 1 tablet by mouth four times daily. Blood-Glucose Sensor (FREESTYLE TOLU 3 PLUS SENSOR) benjamin 6 each 4 Sig: Apply new sensor every fifteen (15) days to upper arm. *A prescription for Tolu sensors was sent to [facility] pharmacy on 04/12/25. Pt is not due for refill. Jose Ortiz LPN April 19, 2025 5:39 PM T [facility] 04-12-2025 Telephone encounter Note Son reports pt is still in [place] and is staying longer than first thought. Son has to mail sensors to pt. Prescription Refill Information The patient has been identified by name and date of : Yes Caregiver verified no other encounters exist for this prescription request: Yes Caregiver confirmed with patient/requestor that no other refills are due, in the near future, with this provider at this time: Yes The last office visit in the department: 03/30/25 Does the patient have a future office visit with this provider/department: No Requested Prescriptions Pending Prescriptions Disp Refills Blood-Glucose Sensor (FREESTYLE TOLU 3 PLUS SENSOR) benjamin 6 each 4 Sig: Apply new sensor every fifteen (15) days to upper arm. Johnna Medina LPN April 12, 2025 2:54 PM T [facility] 04-12-2025 Miscellaneous Notes Son reports pt is still in [place] and is staying longer than first thought. Son has to mail sensors to pt. Prescription Refill Information The patient has been identified by name and date of : Yes Caregiver verified no other encounters exist for this prescription request: Yes Caregiver confirmed with patient/requestor that no other refills are due, in the near future, with this provider at this time: Yes The last office visit in the department: 03/30/25 Does the patient have a future office visit with this provider/department: No Requested Prescriptions Pending Prescriptions Disp Refills Blood-Glucose Sensor (FREESTYLE TOLU 3 PLUS SENSOR) benjamin 6 each 4 Sig: Apply new sensor every fifteen (15) days to upper arm. Johnna Medina LPN April 12, 2025 2:54 PM documented in this encounter [facility] 04-08-2025 Telephone encounter Note Thank you, patient has cancelled all of her chemotherapy treatments. Elaina Silverio RN [facility] Work Phone: 04-08-2025 Miscellaneous Notes Thank you, patient has cancelled all of her chemotherapy treatments. Elaina Silverio RN FYI- Patient is scheduled for consult with Dr Stoner on 04/19/25 for palliative radiation. Patient will be out of the country 04/11-04/17. Patient is also scheduled for another ERCP 04/20. She saw Dr Nguyễn on 04/06 and is not a surgical candidate. I just wanted to make sure that you were aware. documented in this encounter [facility] 04-08-2025 Telephone encounter Note FYI- Patient is scheduled for consult with Dr Stoner on 04/19/25 for palliative radiation. Patient will be out of the country 04[place]11-04[place]17. Patient is also scheduled for another ERCP 04/20. She saw Dr Nguyễn on 04/06 and is not a surgical candidate. I just wanted to make sure that you were aware. [facility] 04-06-2025 Telephone encounter Note Hey! This lady has PDAC s/p biliary stenting and a couple cycles of chemo. She isn't a surgical candidate and does not want to continue chemo. She is looking more palliative. She is interested in a metal stent. She also is reporting RUQ pain (no fevers or jaundice) so I'm not sure if her stent may be clogged. Also, she is out of the country . Are you on any blood thinners? Eliquis, aware to stop 3 days prior Are you on any diabetic medications? no Do you have any allergies? In chart and current Scheduled ERCP for 04/20/25 8am. [facility] 04-06-2025 Miscellaneous Notes Hey! This lady has PDAC s/p biliary stenting and a couple cycles of chemo. She isn't a surgical candidate and does not want to continue chemo. She is looking more palliative. She is interested in a metal stent. She also is reporting RUQ pain (no fevers or jaundice) so I'm not sure if her stent may be clogged. Also, she is out of the [place] . Are you on any blood thinners? Martaqucolleen, aware to stop 3 days prior Are you on any diabetic medications? no Do you have any allergies? In chart and current Scheduled ERCP for 04/20/25 8am. documented in this encounter [facility] 04-06-2025 History of Presen t illness Narrative Images from the original note were not included. Ayaz Nguyễn MD Surgical Oncology [address] [facility], [address] [place] [id number] Name: Telma Tineo Age: [age] year old Sex: Telma Tineo : 1940 Referring Provider: No ref. provider found Subjective CHIEF COMPLAINT: Therapy options ONCOLOGIC HISTORY: 01/15/25: Pancreas EUS/FNA: adenocarcinoma 01/2025: Neoadjuvant chemotherapy with gem-abraxane 03/2025: Discontinued chemotherapy due to side effects HISTORY OF PRESENT ILLNESS: Ms. Tineo is a 84 year old female who presents for rediscussion of treatment options for pancreatic cancer. She was started on gemcitabine-abraxane for neoadjuvant chemotherapy. However she recently chose to discontinue therapy due to adverse effects. Since being off of chemo, she has been able to return to her daily ADLs and enjoy her days. She reports not wanting to continue chemo and would rather prioritize quality of life over quantity of days. Also reports RUQ pain consistently. Denies fevers, chills, and jaundice. I personally reviewed Tobacco Allergies Meds Problems Med Hx Surg Hx Fam Hx Objective PHYSICAL EXAM: Ht 5' 0 (1.52m) Wt 150 lb (68.0kg) BMI 29.30 kg/(m^2). Physical Exam Constitutional: General: She is not in acute distress. Appearance: Normal appearance. HENT: Head: Normocephalic and atraumatic. Mouth/Throat: Mouth: Mucous membranes are moist. Eyes: Extraocular Movements: Extraocular movements intact. Cardiovascular: Rate and Rhythm: Normal rate. Pulmonary: Effort: Pulmonary effort is normal. No respiratory distress. Breath sounds: No stridor. Abdominal: General: Abdomen is flat. There is no distension. Palpations: Abdomen is soft. Tenderness: There is no abdominal tenderness. Musculoskeletal: General: Normal range of motion. Cervical back: Normal range of motion. Skin: General: Skin is warm and dry. Coloration: Skin is not jaundiced. Findings: No erythema or rash. Neurological: General: No focal deficit present. Mental Status: She is alert and oriented to person, place, and time. Mental status is at baseline. Psychiatric: Mood and Affect: Mood normal. Behavior: Behavior normal. Thought Content: Thought content normal. Judgment: Judgment normal. DATA: Labs: No recent labs. Assessment/Plan Ms. Tineo is a 84 year old female with known pancreatic cancer who started neoadjuvant chemotherapy but is unable to continue due to side effects. -We rediscussed treatment options. 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 -We discussed other treatment options including palliative chemotherapy, radiation, and palliative care options. She is interested in palliative radiation and possibly palliative chemotherapy. Will discuss with Dr. Yusuf and refer to Radiation Oncology -Given her RUQ pain with a known plastic biliary stent, will reach out to GI for repeat ERCP to evaluate stent. Additionally as she is not a surgical candidate, her stent can be exchanged out for a metal stent. -Offered to place referral for Hospice but patient and family were not interested. Ayaz Nguyễn MD [id number] 04/06/2025 documented in this encounter [facility] 04-06-2025 Note [facility] 04-01-2025 Note HNO ID: [id number] Author: SKYLER BHATIA MA Service: ? Author Type: Logistics Operations Director Type: Progress Notes Filed: 04/01/2025 15:58 Note Text: Opened in error [facility] 04-01-2025 History of Presen t illness Narrative Opened in error documented in this encounter [facility] 03-30-2025 Instructions Henok Martinez MD - 03/30/2025 2:22 PM EDT - Contact Dr. Mcgraw s office to arrange evaluation and maintenance of your pancreatic stent now that you ve paused chemotherapy. Let them know you ve opted not to proceed with more chemo but need the stent checked for cleaning or replacement. - Schedule lab tests (including liver function tests) about one month after you return from [place]. Call our office when you re back to book the labs. - Plan to return for a follow-up visit in 6-8 weeks to review your lab results and assess your comfort. - Watch for signs of stent blockage or liver issues: Severe, constant itching (not everyday itches) Yellowing of your skin or eyes New or worsening belly pain Significant nausea or vomiting Contact us immediately if any of these occur. - If you decide to resume chemotherapy at any time, call Dr. Yusuf s office to discuss restarting treatment. - Should your symptoms become difficult to manage at home, consider hospice services for additional comfort support; we can help arrange a referral when you re ready. - Continue your current diabetes management plan; no changes are needed at this time. documented in this encounter [facility] 03-30-2025 Note HNO ID: [id number] Author: HENOK MARTINEZ MD Service: ? Author Type: Physician Type: Progress Notes Filed: 03/30/2025 16:37 Note Text: Telma is an 84-year-old female with a history of pancreatic cancer, diabetes, and recent pneumonia, presenting for follow-up. HPI Pancreatic Cancer: - Telma has discontinued chemotherapy due to severe side effects, including fatigue, anorexia, and decreased activity levels. - Reports significant improvement in overall well-being since stopping chemotherapy. - No current abdominal pain, nausea, or emesis. - No jaundice; occasional pruritus noted. - Appetite has improved; Telma is eating more regularly. - Telma's son has informed oncologist Dr. Yusuf about the decision to discontinue chemotherapy. - Telma's son expresses concern about the need to evaluate the stent placed during surgery over three months ago by Dr. Mcgraw. Diabetes: - Blood glucose levels are reportedly well-controlled at night but tend to rise during the day. - No current edema. Recent Pneumonia: - Recent chest X-ray showed clear lungs. - No current fever, chills, or cough. - Previous cough has resolved with medication. MEDICATIONS: Current Outpatient Medications Medication Sig Insulin Syringe-Needle U-100 0.5 mL 31 gauge x 5/16 1 each two times a day. sucralfate (CARAFATE) 1 gram tablet Take 1 tablet by mouth four times daily. Promethazine-DM (PHENERGAN-DM) 6.25-15 mg/5 mL syrup Take 5 mL by mouth four times a day as needed. pantoprazole DR (PROTONIX) 40 mg tablet Take 1 tablet by mouth two times a day before meals at 6 am and 4 pm. Lancets Test Four times a day. Insulin Dep? Yes uncontrolled dm blood sugar diagnostic (BLOOD GLUCOSE TEST) test strip Test 4 times daily, Insulin Dep? Yes dm 2 uncontrolled. blood sugar diagnostic test strip Use with blood glucose test 2 times daily, Insulin Dep? Yes Lancets Use with blood glucose test 2 times daily. Insulin Dep? Yes alcohol swabs Use with blood glucose test 2 times daily. Insulin Dep? Yes glucose 4 gram chewable tablet Take 4 tablets by mouth as needed for low blood sugar. Blood-Glucose Meter,Continuous (FREESTYLE TOLU 3 READER) [facility] Use to check blood sugar at least four (4) times daily. Blood-Glucose Sensor (FREESTYLE TOLU 3 PLUS SENSOR) benjamin Apply new sensor every fifteen (15) days to upper arm. metoprolol tartrate, short acting, (LOPRESSOR) 50 mg tablet Take 1.5 tablets by mouth two times a day. PEG 400-propylene glycol (SYSTANE ULTRA) 0.4-0.3 % ophthalmic solution Use 1 Drop in both eyes three times a day. amLODIPine (NORVASC) 10 mg tablet Take 10 mg by mouth once daily. Blood Pressure Test Kit-Large (Mapidy ARM BP MONITOR) 1 Each once daily. atorvastatin (LIPITOR) 20 mg tablet Take 1 tablet by mouth once daily. losartan (COZAAR) 100 mg tablet Take 1 tablet by mouth once daily. ELIQUIS 5 mg tab(s) Take 1 tablet by mouth two times a day. insulin NPH-insulin regular 70/30 (NOVOLIN 70/30 U-100 INSULIN) 100 unit/mL suspension Inject 10 Units subcutaneously two times a day with meals. ondansetron (ZOFRAN) 8 mg tablet Take 1 tablet by mouth every 8 hours as needed. No current facility-administered medications for this visit. ALLERGIES: ALLERGIES Allergen Reactions Penicillins Anaphylaxis Tetracycline Rash Tramadol Intolerance Trembling PAST MEDICAL HISTORY Diagnosis Date Allergies Lundberg's palsy Bronchiectasis (HCC) Gastroesophageal reflux disease without esophagitis History of CVA (cerebrovascular accident) Mild intermittent asthma without complication (HCC) Primary hypertension Type 2 diabetes mellitus without complication, without long-term current use of insulin (HCC) PAST SURGICAL HISTORY Procedure Laterality Date APPENDECTOMY CATARACT EXTRACTION HX Bilateral COLONOSCOPY SCREENING 10/04/2022 no specimens collected, No further screening colonoscopies required HEMORRHOIDECTOMY X's HYSTERECTOMY HX without bso PAST SURGICAL HISTORY OF ? repair of cystocele RHINOPLASTY N/A SLING OPER STRES INCONTINENCE TONSILLECTOMY AND ADENOIDECTOMY FAMILY HISTORY Problem Relation Age of Onset Pancreatic Cancer Mother Lung Cancer Father No Known Problems Sister No Known Problems Sister No Known Problems Sister No Known Problems Sister No Known Problems Sister Cancer Brother No Known Problems Brother Cancer Brother No Known Problems Brother Cancer Brother Heart disease Son No Ocular Disease No Family History Social History Tobacco Use Smoking status: Former Smokeless tobacco: Never Tobacco comments: Light smoker for 7 years in early adulthood Vaping Use Vaping status: Never Used Substance Use Topics Alcohol use: Not Currently Drug use: Never Reviewed current medications, allergies, past medical history, surgical history, family history and social history today. REVIEW OF SYSTEMS Constitutional: (-) fever, (-) chi (more content not included)... [facility] 03-30-2025 History of Presen t illness Narrative Telma is an 84-year-old female with a history of pancreatic cancer, diabetes, and recent pneumonia, presenting for follow-up. HPI Pancreatic Cancer: - Telma has discontinued chemotherapy due to severe side effects, including fatigue, anorexia, and decreased activity levels. - Reports significant improvement in overall well-being since stopping chemotherapy. - No current abdominal pain, nausea, or emesis. - No jaundice; occasional pruritus noted. - Appetite has improved; Telma is eating more regularly. - Telma's son has informed oncologist Dr. Yusuf about the decision to discontinue chemotherapy. - Telma's son expresses concern about the need to evaluate the stent placed during surgery over three months ago by Dr. Mcgraw. Diabetes: - Blood glucose levels are reportedly well-controlled at night but tend to rise during the day. - No current edema. Recent Pneumonia: - Recent chest X-ray showed clear lungs. - No current fever, chills, or cough. - Previous cough has resolved with medication. MEDICATIONS: Current Outpatient Medications Medication Sig Insulin Syringe-Needle U-100 0.5 mL 31 gauge x 5/16 1 each two times a day. sucralfate (CARAFATE) 1 gram tablet Take 1 tablet by mouth four times daily. Promethazine-DM (PHENERGAN-DM) 6.25-15 mg/5 mL syrup Take 5 mL by mouth four times a day as needed. pantoprazole DR (PROTONIX) 40 mg tablet Take 1 tablet by mouth two times a day before meals at 6 am and 4 pm. Lancets Test Four times a day. Insulin Dep? Yes uncontrolled dm blood sugar diagnostic (BLOOD GLUCOSE TEST) test strip Test 4 times daily, Insulin Dep? Yes dm 2 uncontrolled. blood sugar diagnostic test strip Use with blood glucose test 2 times daily, Insulin Dep? Yes Lancets Use with blood glucose test 2 times daily. Insulin Dep? Yes alcohol swabs Use with blood glucose test 2 times daily. Insulin Dep? Yes glucose 4 gram chewable tablet Take 4 tablets by mouth as needed for low blood sugar. Blood-Glucose Meter,Continuous (FREESTYLE TOLU 3 READER) mis Use to check blood sugar at least four (4) times daily. Blood-Glucose Sensor (FREESTYLE TOLU 3 PLUS SENSOR) benjamin Apply new sensor every fifteen (15) days to upper arm. metoprolol tartrate, short acting, (LOPRESSOR) 50 mg tablet Take 1.5 tablets by mouth two times a day. PEG 400-propylene glycol (SYSTANE ULTRA) 0.4-0.3 % ophthalmic solution Use 1 Drop in both eyes three times a day. amLODIPine (NORVASC) 10 mg tablet Take 10 mg by mouth once daily. Blood Pressure Test Kit-Large (Mapidy ARM BP MONITOR) 1 Each once daily. atorvastatin (LIPITOR) 20 mg tablet Take 1 tablet by mouth once daily. losartan (COZAAR) 100 mg tablet Take 1 tablet by mouth once daily. ELIQUIS 5 mg tab(s) Take 1 tablet by mouth two times a day. insulin NPH-insulin regular 70/30 (NOVOLIN 70/30 U-100 INSULIN) 100 unit/mL suspension Inject 10 Units subcutaneously two times a day with meals. ondansetron (ZOFRAN) 8 mg tablet Take 1 tablet by mouth every 8 hours as needed. No current facility-administered medications for this visit. ALLERGIES: ALLERGIES Allergen Reactions Penicillins Anaphylaxis Tetracycline Rash Tramadol Intolerance Trembling PAST MEDICAL HISTORY Diagnosis Date Allergies Lundberg's palsy Bronchiectasis (HCC) Gastroesophageal reflux disease without esophagitis History of CVA (cerebrovascular accident) Mild intermittent asthma without complication (HCC) Primary hypertension Type 2 diabetes mellitus without complication, without long-term current use of insulin (HCC) PAST SURGICAL HISTORY Procedure Laterality Date APPENDECTOMY CATARACT EXTRACTION HX Bilateral COLONOSCOPY SCREENING 10/04/2022 no specimens collected, No further screening colonoscopies required HEMORRHOIDECTOMY X's HYSTERECTOMY HX without bso PAST SURGICAL HISTORY OF ? repair of cystocele RHINOPLASTY N/A SLING OPER STRES INCONTINENCE TONSILLECTOMY & ADENOIDECTOMY <AGE 12 FAMILY HISTORY Problem Relation Age of Onset Pancreatic Cancer Mother Lung Cancer Father No Known Problems Sister No Known Problems Sister No Known Problems Sister No Known Problems Sister No Known Problems Sister Cancer Brother No Known Problems Brother Cancer Brother No Known Problems Brother Cancer Brother Heart disease Son No Ocular Disease No Family History Social History Tobacco Use Smoking status: Former Smokeless tobacco: Never Tobacco comments: Light smoker for 7 years in early adulthood Vaping Use Vaping status: Never Used Substance Use Topics Alcohol use: Not Currently Drug use: Never Reviewed current medications, allergies, past medical history, surgical history, family history and social history today. REVIEW OF SYSTEMS Constitutional: (-) fever, (-) chills, (-) pain Cardiovascular: (-) chest pain Respiratory: (+) dyspnea, (-) cough Gastrointestinal: (+) increased appetite, (-) nausea, (-) vomiting Musculoskeletal: (+) leg shakiness Skin: (+) hand pruritus, (-) jaundice Hematologic/Lymphatic: (-) bleeding HEALTH MAINTENANCE: Reviewed health maintenance issues today and recommended the following in detail. Cervical Cancer Screening Never done RSV Vaccine(1 - 1-dose 75+ series) Never done Dilated Retinal Exam due on 04/28/2025 LAB REVIEWED: Labs Tests Imaging - Chest X-ray: Clear, pneumonia resolved VITALS: BP 118/68 Pulse 84 Wt 68.9 kg (152 lb) SpO2 98% BMI 29.69 kg/m Last 4 Encounter Wt Readings: Date: Wt: 03/30/2025 68.9 kg (152 lb) 02/24/2025 67.1 kg (148 lb) 02/22/2025 68.3 kg (150 lb 8 oz) 02/22/2025 68.3 kg (150 lb 8 oz) PHYSICAL EXAMINATION: GENERAL: NAD, alert and oriented. SKIN: Unremarkable, no rash or skin lesions. NECK: Supple, no lymphadenopathy, normal thyroid, no carotid bruits. LUNGS: Clear to auscultation bilaterally, no wheezes/rhonchi/rales. HEART: Regular rate and rhythm, no murmurs. No ectopy. EXTREMITIES: Normal, no deformities, no skin discoloration, no edema. NEURO: Awake, alert and oriented x3, cranial nerves II-XII grossly intact, normal gait, no involuntary motions. ASSESSMENT AND PLAN 1. History of CVA (cerebrovascular accident) (Z86.73) - stable 2. Primary hypertension (I10) - well controlled. 3. Atrial fibrillation, unspecified type (HCC) (I48.91) Continue meds. 4. Hyperlipidemia, unspecified hyperlipidemia type (E78.5) - doing well. 5. Bronchiectasis without complication (HCC) (J47.9) No changes. 6. Gastroesophageal reflux disease without esophagitis (K21.9) - stable. 7. 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) (C25.0) - Patient has opted to discontinue chemotherapy due to intolerable side effects. - Discussed that chemotherapy is not curative but can potentially prolong life. - Advised monitoring for signs of biliary obstruction, including pruritus, jaundice, and abdominal pain. - Ordered liver function tests to be performed in one month to monitor for any signs of obstruction or liver dysfunction. - Recommended contacting Dr. Hernandez to evaluate the current status of the biliary stent, as it has been over three months since placement. - Follow-up appointment scheduled in 6-8 weeks to reassess condition and review lab results. - currently pain free. Discussed options down the road such as hospice. - She is going to [place] to visit relatives. 8. assisted current use of anticoagulant therapy (Z79.01) - Continue current medications. Notify us if any difficulties are noted. 9. Type 2 diabetes mellitus with hyperglycemia, with long-term current use of insulin (HCC) (E11.65) - Blood glucose levels are reportedly well-controlled, with occasional elevations during the day. - Continue current insulin regimen. - Monitor blood glucose levels regularly. (See patient after visit summary for additional instructions to patient) Henok Martinez MD Recording using ambient [employer] software for draft documentation of the visit was discussed with the patient/authorized business office representative; all questions welcomed and answered. Patient/authorized business office representative agreed to proceed documented in this encounter [facility] 03-18-2025 Note HNO ID: [id number] Author: JUAN ERNANDEZ RT(R) Service: ? Author Type: Service Tech Type: Progress Notes Filed: 03/18/2025 13:48 Note Text: Radiology Service Progress Note PATIENT NAME: Telma Tineo DATE OF SERVICE: March 18, 2025 TIME: 1:41 PM PATIENT IDENTITY VERIFICATION COMPLETED USING TWO (2) IDENTIFIERS: Name and Date of confirmed by patient verbally. FALL SCREENING: Has the patient had 2 falls in the last year or 1 fall with injury or currently using an Ambulatory Assistive Device (Walker, Cane, Wheelchair, Crutches, etc.)? Yes, Patient High Risk for Falls What interventions were put in place to prevent falls during this visit? Increased Observations by Caregivers PATIENT GENDER DATA: Assigned female at . status: : No status: NO. PATIENT RELEVANT IMPLANT DATA REVIEWED: Yes PATIENT PRESENTS WITH AN IMPLANTABLE OR ATTACHED HAT AND CAP DRYING ROOM ATTENDANT: No RADIOLOGY DEPARTMENT: General X-ray: Exam(s) Completed: Chest X-Ray PERIPHERAL IV DATA: Not applicable SIGNED BY: RT Gavin(R) March 18, 2025 1:41 PM [facility] 03-15-2025 Telephone encounter Note All appointments here have been canceled Mame Barreto [facility] 03-15-2025 Miscellaneous Notes All appointments here have been canceled Mame Diaz Pss PSS: please cancel all upcoming appointments with our office. Elaina Silverio RN Received a call back from Timothy. Patient would like to put further treatments on hold. Timothy will keep us updated and call back if/when she is ready to have follow up and/or restart treatments. This nurse will make a reminder to check in with Timothy in a month if no return call by then. Elaina Silverio RN Call to Timothy to clarify if we needed to cancel treatment also this week. No answer, left VM for him to call the office back. Elaina Silverio RN Spoke with Telma's son, Timothy, over the phone. He forgot about Telma's appointment and states she is not coming in for her office visit with [facility] today or for labs. She is now considering not pursuing chemotherapy treatment. She returned from out of state last night and she is leaving for [place] 03/18 to say goodbyes to her family. Son thinks she may end up staying in [place] but is not sure. documented in this encounter [facility] 03-15-2025 Telephone encounter Note PSS: please cancel all upcoming appointments with our office. Elaina Silverio RN [facility] Work Phone: 03-15-2025 Telephone encounter Note Received a call back from Timothy. Patient would like to put further treatments on hold. Timothy will keep us updated and call back if/when she is ready to have follow up and/or restart treatments. This nurse will make a reminder to check in with Timothy in a month if no return call by then. Elaina Silverio RN [facility] 03-15-2025 Telephone encounter Note Call to Timothy to clarify if we needed to cancel treatment also this week. No answer, left VM for him to call the office back. Elaina Silverio RN [facility] 03-15-2025 Telephone encounter Note Spoke with Telma's son, Timothy, over the phone. He forgot about Telma's appointment and states she is not coming in for her office visit with [facility] today or for labs. She is now considering not pursuing chemotherapy treatment. She returned from out of state last night and she is leaving for [place] 03/18 to say goodbyes to her family. Son thinks she may end up staying in [place] but is not sure. [facility] 03-10-2025 Note HNO ID: [id number] Author: SAFIA HENLEY RN Service: ? Author Type: Registered Nurse Type: Progress Notes Filed: 03/10/2025 11:39 Note Text: Value Based Care Coordination Chart Review Provider Action / FYI: Upon review of patient chart, the patient is excluded from Chronic Disease Management Patient is not a candidate for CDM at this time and placed in the following status: Unable to reach Action taken: No action needed . Safia Henley RN March 10, 2025 11:39 AM [facility] 03-10-2025 History of Presen t illness Narrative Value Based Care Coordination Chart Review Provider Action / FYI: Upon review of patient chart, the patient is excluded from Chronic Disease Management Patient is not a candidate for CDM at this time and placed in the following status: Unable to reach Action taken: No action needed . Safia Henley RN March 10, 2025 11:39 AM documented in this encounter [facility] 03-10-2025 Note Patient Outreach [place] TELMA TINEO ([id number]) 1940 F Date Time Provider Department 03/10/25 SAFIA HENLEY [facility] During your visit today, we recorded the following information about you: Safia Henley RN 03/10/2025 11:39 AM Signed Value Based Care Coordination Chart Review Provider Action / FYI: Upon review of patient chart, the patient is excluded from Chronic Disease Management Patient is not a candidate for CDM at this time and placed in the following status: Unable to reach Action taken: No action needed . 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 - Promethazine-DM (PHENERGAN-DM) 6.25-15 mg/5 mL syrup Take 5 mL by mouth four times a day as needed. - insulin NPH-insulin regular 70/30 (NOVOLIN 70/30 U-100 INSULIN) 100 unit/mL suspension Inject 10 Units subcutaneously two times a day with meals. - pantoprazole DR (PROTONIX) 40 mg tablet Take 1 tablet by mouth two times a day before meals at 6 am and 4 pm. - Lancets Test Four times a day. Insulin Dep? Yes uncontrolled dm - blood sugar diagnostic (BLOOD GLUCOSE TEST) test strip Test 4 times daily, Insulin Dep? Yes dm 2 uncontrolled. - ondansetron (ZOFRAN) 8 mg tablet Take 1 tablet by mouth every 8 hours as needed. - blood sugar diagnostic test strip Use with blood glucose test 2 times daily, Insulin Dep? Yes - Lancets Use with blood glucose test 2 times daily. Insulin Dep? Yes - alcohol swabs Use with blood glucose test 2 times daily. Insulin Dep? Yes - glucose 4 gram chewable tablet Take 4 tablets by mouth as needed for low blood sugar. - Blood-Glucose Meter,Continuous (FREESTYLE TOLU 3 READER) misc Use to check blood sugar at least four (4) times daily. - Blood-Glucose Sensor (FREESTYLE TOLU 3 PLUS SENSOR) benjamin Apply new sensor every fifteen (15) days to upper arm. - metoprolol tartrate, short acting, (LOPRESSOR) 50 mg tablet Take 1.5 tablets by mouth two times a day. - PEG 400-propylene glycol (SYSTANE ULTRA) 0.4-0.3 % ophthalmic solution Use 1 Drop in both eyes three times a day. - atorvastatin (LIPITOR) 20 mg tablet Take 1 tablet by mouth once daily. - ELIQUIS 5 mg tab(s) Take 5 mg by mouth two times a day. - amLODIPine (NORVASC) 10 mg tablet Take 10 mg by mouth once daily. - Blood Pressure Test Kit-Large (Mapidy ARM BP MONITOR) 1 Each once daily. 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 History of uterine cancer [Z85.42] 09/14/2021 Bronchiectasis without complication (HCC) [J47.*11/22/2022 Atrial fibrillation, unspecified type (HCC) [I4*04/15/2023 Candidiasis of vagina [B37.31] 05/20/2023 05/20/2023 Diagnosed: 05/20/2023 Chest pain [R07.9] 03/12/2023 07/01/2024 Diagnosed: 05/20/2023 Hyperlipidemia [E78.5] 05/20/2023 Diagnosed: 05/20/2023 Impaired cognition [R41.89] 05/20/2023 Diagnosed: 05/20/2023 assisted current use of anticoagulant therapy *05/20/2023 Diagnosed: 05/20/2023 Neck pain [M54.2] 05/20/2023 05/20/2023 Diagnosed: 05/20/2023 Cerebrovascular accident (CVA) (HCC) [I63.9] 05/20/2023 Diagnosed: 05/20/2023 Jaundice [R17] 01/15/2025 Pancreatic mass [K86.89] 01/15/2025 Type 2 diabetes mellitus with hyperglycemia (HC*01/18/2025 Hyperglycemia [R73.9] 01/18/2025 Elevated hemoglobin A1c [R73.09] 01/18/2025 Obstructive jaundice [K83.1] 01/18/2025 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) [C*01/21/2025 Acute pneumonia [J18.9] 02/11/2025 Infection due to respiratory syncytial virus (R*02/12/2025 Pancreatic adenocarcinoma (HCC) [C25.9] 02/12/2025 Encounter Status:Closed by SAFIA HENLEY on 03/10/25 [facility] 03-08-2025 Telephone encounter Note Rx sent [facility] 03-08-2025 Miscellaneous Notes Rx sent Patient's son calling and is asking if patient needs to continue taking sucralfate. Patient had ulcer while she was in hospital. Son asking if patient needs to continue this medication? If patient is to continue medication new prescription with refills need to be sent to [facility]. The patient has been identified by name and date of : Yes Caregiver verified no other encounters exist for this prescription request: Yes Caregiver confirmed with patient/requestor that no other refills are due, in the near future, with this provider at this time: Yes The last office visit in the department: 02/24/2025 Does the patient have a future office visit with this provider/department: Yes 03/30/2025 Requested Prescriptions Pending Prescriptions Disp Refills sucralfate (CARAFATE) 1 gram tablet 120 tablet 0 Sig: Take 1 tablet by mouth four times daily. Nat Marcelo RN March 08, 2025 2:21 PM documented in this encounter [facility] 03-08-2025 Telephone encounter Note Patient's son calling and is asking if patient needs to continue taking sucralfate. Patient had ulcer while she was in hospital. Son asking if patient needs to continue this medication? If patient is to continue medication new prescription with refills need to be sent to [facility]. The patient has been identified by name and date of : Yes Caregiver verified no other encounters exist for this prescription request: Yes Caregiver confirmed with patient/requestor that no other refills are due, in the near future, with this provider at this time: Yes The last office visit in the department: 02/24/2025 Does the patient have a future office visit with this provider/department: Yes 03/30/2025 Requested Prescriptions Pending Prescriptions Disp Refills sucralfate (CARAFATE) 1 gram tablet 120 tablet 0 Sig: Take 1 tablet by mouth four times daily. Nat Marcelo RN March 08, 2025 2:21 PM [facility] 03-03-2025 Telephone encounter Note Tejas stated that she was going to come in soon for the x-ray and then based on those results she will schedule for port placement if the x-ray looks clear Mame Barreto [facility] 03-03-2025 Miscellaneous Notes Tejas stated that she was going to come in soon for the x-ray and then based on those results she will schedule for port placement if the x-ray looks clear Mame Barreto I called and spoke to Tejas and let him know the new dates and times, he stated understanding. He also stated that Telma is going to have another chest x-ray done to see if the pneumonia is gone. He stated she has not had her port placed yet because they said don't do it until her lung are all clear. He is hoping to get the port placed in [place] if the chest x-ray looks good Mame Diaz Pss PSS: please move out appointments 03/09 and 03/10 out a week and adjust schedule. please call Timothy with new date/times. Elaina Silverio RN Call to Timothy, aware ok for travel to [place]. He states she is planning to be out of town for a week. 03/05 to 03/12. Appointments will need to be rescheduled. Elaina Silverio RN Images from the original note were not included. Timothy called asking if okay for patient to travel to [place] within the next few days by car. Please call him and advise. documented in this encounter [facility] 03-03-2025 Telephone encounter Note I called and spoke to Tejas and let him know the new dates and times, he stated understanding. He also stated that Telma is going to have another chest x-ray done to see if the pneumonia is gone. He stated she has not had her port placed yet because they said don't do it until her lung are all clear. He is hoping to get the port placed in [place] if the chest x-ray looks good Mame Diaz Pss [facility] 03-03-2025 Telephone encounter Note PSS: please move out appointments 03/09 and 03/10 out a week and adjust schedule. please call Timothy with new date/times. Elaina Silverio RN [facility] Work Phone: 03-03-2025 Telephone encounter Note Call to Timothy, aware ok for travel to [place]. He states she is planning to be out of town for a week. 03/05 to 03/12. Appointments will need to be rescheduled. Elaina Silverio RN [facility] 03-03-2025 Telephone encounter Note Images from the original note were not included. [facility] 03-02-2025 Telephone encounter Note Timothy called asking if okay for patient to travel to [place] within the next few days by car. Please call him and advise. [facility] Work Phone: 02-24-2025 Instructions Henok Martinez MD - 02/24/2025 11:35 AM EDT Let me know how sugars are on in Saturday. documented in this encounter [facility] 02-24-2025 Note HNO ID: [id number] Author: HENOK MARTINEZ MD Service: ? Author Type: Physician Type: Progress Notes Filed: 02/24/2025 11:45 Note Text: No chief complaint on file. HPI: Patient presents today for office visit for hospital follow up. HOSPITAL/ER FOLLOW UP: Reason for visit: pneumonia Which facility: [facility] Date of visit: 02/11/25-02/14/25 Diagnosis: acute pneumonia, RSV, pancreatic adenocarcinoma Current symptoms: still feeling very weak, says her breathing is ok. Hospital decreased her insulin and glucose is high at home. Her appetite has resumed since feeling better. They have increased to 5 units bid and sugars are in the 400's No complaints of pain. On ppi. Using miralax and now is working well. Still some cough. No fever. No shortness of breath Chest xray: Impression IMPRESSION: Mild residual though decreased reticular opacities at the lung bases Discharge summary copied and pasted: HOSPITAL COURSE: This is an 84-year-old lady, with PMH as follows: History of HTN, DM2, A-fib, CVA, GERD. She also has Hx nonresectable pancreatic adenocarcinoma. At this time, she was admitted to with chief complaint of fever, chills and body ache and cough, and was admitted with concern for pneumonia. The patient was found to be RSV positive, and was treated for pneumonia while in house. She was evaluated by ID and was placed on Levaquin. The patient was also complaining of intermittent abdominal pain. The patient has a history of biliary stent placement on 01/15/2025. EGD on 01/22/2025 showed non-bleeding duodenal ulcer. CT showed stable position of the CBD stent terminating in the ampullary diverticulum, no new intrahepatic biliary ductal dilation, unchanged pancreatic mass, no new PD dilation. GI tract without dilation or wall thickening noted on CT. Per GI regarding pain abdomen: likely multifactorial in the setting of duodenal ulcer with pancreatic cancer. At present, the patient is being discharged home in stable condition to follow up with her PCP. To note, while in house, she has not been requiring nearly as much insulin as she was prescribed at home. Her NPH insulin dose has been reduced from 17 mg bid to 5 units qday. MEDICATIONS: Current Outpatient Medications Medication Sig pantoprazole DR (PROTONIX) 40 mg tablet Take 1 tablet by mouth two times a day before meals at 6 am and 4 pm. insulin NPH-insulin regular 70/30 (NOVOLIN 70/30 U-100 INSULIN) 100 unit/mL suspension Inject 5 Units subcutaneously daily with breakfast. Patient should start on February 15, 2025. Lancets Test Four times a day. Insulin Dep? Yes uncontrolled dm blood sugar diagnostic (BLOOD GLUCOSE TEST) test strip Test 4 times daily, Insulin Dep? Yes dm 2 uncontrolled. ondansetron (ZOFRAN) 8 mg tablet Take 1 tablet by mouth every 8 hours as needed. blood sugar diagnostic test strip Use with blood glucose test 2 times daily, Insulin Dep? Yes Lancets Use with blood glucose test 2 times daily. Insulin Dep? Yes alcohol swabs Use with blood glucose test 2 times daily. Insulin Dep? Yes glucose 4 gram chewable tablet Take 4 tablets by mouth as needed for low blood sugar. Blood-Glucose Meter,Continuous (FREESTYLE TOLU 3 READER) [facility] Use to check blood sugar at least four (4) times daily. Blood-Glucose Sensor (FREESTYLE TOLU 3 PLUS SENSOR) benjamin Apply new sensor every fifteen (15) days to upper arm. metoprolol tartrate, short acting, (LOPRESSOR) 50 mg tablet Take 1.5 tablets by mouth two times a day. PEG 400-propylene glycol (SYSTANE ULTRA) 0.4-0.3 % ophthalmic solution Use 1 Drop in both eyes three times a day. atorvastatin (LIPITOR) 20 mg tablet Take 1 tablet by mouth once daily. ELIQUIS 5 mg tab(s) Take 5 mg by mouth two times a day. amLODIPine (NORVASC) 10 mg tablet Take 10 mg by mouth once daily. Blood Pressure Test Kit-Large (Mapidy ARM BP MONITOR) 1 Each once daily. No current facility-administered medications for this visit. ALLERGIES: ALLERGIES Allergen Reactions Penicillins Anaphylaxis Tetracycline Rash Tramadol Intolerance Trembling PAST MEDICAL HISTORY Diagnosis Date Allergies Lundberg's palsy Bronchiectasis (HCC) Gastroesophageal reflux disease without esophagitis History of CVA (cerebrovascular accident) Mild intermittent asthma without complication (HCC) Primary hypertension Type 2 diabetes mellitus without complication, without long-term current use of insulin (HCC) PAST SURGICAL HISTORY Procedure Laterality Date APPENDECTOMY CATARACT EXTRACTION HX Bilateral COLONOSCOPY SCREENING 10/04/2022 no specimens collected, No further screening colonoscopies required HEMORRHOIDECTOMY X's HYSTERECTOMY HX without bso PAST SURGICAL HISTORY OF ? repair of cystocele RHINOPLASTY N/A SLING OPER STRES INCONTINENCE TONSILLECTOMY AND ADENOIDECTOMY FAMILY HISTORY Problem Relation Age of Onset Pancreatic Cancer Mother Lung Cancer Father No Kno (more content not included)... [facility] 02-24-2025 History of Presen t illness Narrative No chief complaint on file. HPI: Patient presents today for office visit for hospital follow up. HOSPITAL/ER FOLLOW UP: Reason for visit: pneumonia Which facility: [facility] Date of visit: 02/11/25-02/14/25 Diagnosis: acute pneumonia, RSV, pancreatic adenocarcinoma Current symptoms: still feeling very weak, says her breathing is ok. Hospital decreased her insulin and glucose is high at home. Her appetite has resumed since feeling better. They have increased to 5 units bid and sugars are in the 400's No complaints of pain. On ppi. Using miralax and now is working well. Still some cough. No fever. No shortness of breath Chest xray: Impression IMPRESSION: Mild residual though decreased reticular opacities at the lung bases Discharge summary copied and pasted: HOSPITAL COURSE: This is an 84-year-old lady, with PMH as follows: History of HTN, DM2, A-fib, CVA, GERD. She also has Hx nonresectable pancreatic adenocarcinoma. At this time, she was admitted to with chief complaint of fever, chills and body ache and cough, and was admitted with concern for pneumonia. The patient was found to be RSV positive, and was treated for pneumonia while in house. She was evaluated by ID and was placed on Levaquin. The patient was also complaining of intermittent abdominal pain. The patient has a history of biliary stent placement on 01/15/2025. EGD on 01/22/2025 showed non-bleeding duodenal ulcer. CT showed stable position of the CBD stent terminating in the ampullary diverticulum, no new intrahepatic biliary ductal dilation, unchanged pancreatic mass, no new PD dilation. GI tract without dilation or wall thickening noted on CT. Per GI regarding pain abdomen: likely multifactorial in the setting of duodenal ulcer with pancreatic cancer. At present, the patient is being discharged home in stable condition to follow up with her PCP. To note, while in house, she has not been requiring nearly as much insulin as she was prescribed at home. Her NPH insulin dose has been reduced from 17 mg bid to 5 units qday. MEDICATIONS: Current Outpatient Medications Medication Sig pantoprazole DR (PROTONIX) 40 mg tablet Take 1 tablet by mouth two times a day before meals at 6 am and 4 pm. insulin NPH-insulin regular 70/30 (NOVOLIN 70/30 U-100 INSULIN) 100 unit/mL suspension Inject 5 Units subcutaneously daily with breakfast. Patient should start on February 15, 2025. Lancets Test Four times a day. Insulin Dep? Yes uncontrolled dm blood sugar diagnostic (BLOOD GLUCOSE TEST) test strip Test 4 times daily, Insulin Dep? Yes dm 2 uncontrolled. ondansetron (ZOFRAN) 8 mg tablet Take 1 tablet by mouth every 8 hours as needed. blood sugar diagnostic test strip Use with blood glucose test 2 times daily, Insulin Dep? Yes Lancets Use with blood glucose test 2 times daily. Insulin Dep? Yes alcohol swabs Use with blood glucose test 2 times daily. Insulin Dep? Yes glucose 4 gram chewable tablet Take 4 tablets by mouth as needed for low blood sugar. Blood-Glucose Meter,Continuous (FREESTYLE TOLU 3 READER) [facility] Use to check blood sugar at least four (4) times daily. Blood-Glucose Sensor (FREESTYLE TOLU 3 PLUS SENSOR) benjamin Apply new sensor every fifteen (15) days to upper arm. metoprolol tartrate, short acting, (LOPRESSOR) 50 mg tablet Take 1.5 tablets by mouth two times a day. PEG 400-propylene glycol (SYSTANE ULTRA) 0.4-0.3 % ophthalmic solution Use 1 Drop in both eyes three times a day. atorvastatin (LIPITOR) 20 mg tablet Take 1 tablet by mouth once daily. ELIQUIS 5 mg tab(s) Take 5 mg by mouth two times a day. amLODIPine (NORVASC) 10 mg tablet Take 10 mg by mouth once daily. Blood Pressure Test Kit-Large (Mapidy ARM BP MONITOR) 1 Each once daily. No current facility-administered medications for this visit. ALLERGIES: ALLERGIES Allergen Reactions Penicillins Anaphylaxis Tetracycline Rash Tramadol Intolerance Trembling PAST MEDICAL HISTORY Diagnosis Date Allergies Lundberg's palsy Bronchiectasis (HCC) Gastroesophageal reflux disease without esophagitis History of CVA (cerebrovascular accident) Mild intermittent asthma without complication (HCC) Primary hypertension Type 2 diabetes mellitus without complication, without long-term current use of insulin (HCC) PAST SURGICAL HISTORY Procedure Laterality Date APPENDECTOMY CATARACT EXTRACTION HX Bilateral COLONOSCOPY SCREENING 10/04/2022 no specimens collected, No further screening colonoscopies required HEMORRHOIDECTOMY X's HYSTERECTOMY HX without bso PAST SURGICAL HISTORY OF ? repair of cystocele RHINOPLASTY N/A SLING OPER STRES INCONTINENCE TONSILLECTOMY & ADENOIDECTOMY <AGE 12 FAMILY HISTORY Problem Relation Age of Onset Pancreatic Cancer Mother Lung Cancer Father No Known Problems Sister No Known Problems Sister No Known Problems Sister No Known Problems Sister No Known Problems Sister Cancer Brother No Known Problems Brother Cancer Brother No Known Problems Brother Cancer Brother Heart disease Son No Ocular Disease No Family History Social History Tobacco Use Smoking status: Former Smokeless tobacco: Never Tobacco comments: Light smoker for 7 years in early adulthood Vaping Use Vaping status: Never Used Substance Use Topics Alcohol use: Not Currently Drug use: Never Reviewed current medications, allergies, past medical history, surgical history, family history and social history today. REVIEW OF SYSTEMS All other reviewed and negative other than HPI. VITALS: BP 118/72 Pulse 77 Wt 67.1 kg (148 lb) SpO2 99% BMI 28.90 kg/m Last 4 Encounter Wt Readings: Date: Wt: 02/22/2025 68.3 kg (150 lb 8 oz) 02/22/2025 68.3 kg (150 lb 8 oz) 02/10/2025 66.4 kg (146 lb 6.2 oz) 02/05/2025 70.1 kg (154 lb 8 oz) PHYSICAL EXAMINATION: General appearance: Well appearing, alert, in no acute distress, well-hydrated, well nourished. Skin: Skin color, texture, turgor normal, no suspicious rashes or lesions Head: Normocephalic, no masses, lesions, tenderness or abnormalities Lungs: Lungs clear to auscultation. No wheezing, rhonchi, rales Heart: RRR without murmur, gallop, or rubs. No ectopy Abdomen: Normal abdominal exam, Abdomen soft, non-tender. Bowel sounds normal. No masses, organomegaly Extremities: No deformities, edema, skin discoloration, clubbing or cyanosis. Good capillary refill. ASSESSMENT/PLAN: 1. RSV (respiratory syncytial virus pneumonia) - ICD9: 480.1, ICD10: J12.1 (primary diagnosis) - improving. Repeat chest xray in two weeks. Red flags for re-assessment reviewed with patient in detail. - PROMETHAZINE-DM 6.25 MG-15 MG/5 ML ORAL SYRUP 2. Bronchiectasis without complication (HCC) - ICD9: 494.0, ICD10: J47.9 - stable. 3. Pancreatic adenocarcinoma (HCC) - ICD9: 157.9, ICD10: C25.9 - per oncology. 4. Type 2 diabetes mellitus with hyperglycemia, with long-term current use of insulin (HCC) - ICD9: 250.00, 790.29, V58.67, ICD10: E11.65, Z79.4 - increase insulin and call with update on Saturday. - Continue current medications 5. Primary hypertension - ICD9: 401.9, ICD10: I10 - Controlled - Continue current medications Henok Martinez MD documented in this encounter [facility] 02-24-2025 Telephone encounter Note This will be addressed with provider today at visit. [facility] 02-24-2025 Miscellaneous Notes This will be addressed with provider today at visit. Most of the cough meds are now otc. Would start with delsym otc Spoke with patient's son to reschedule the an appointment. Patient's son is asking if Dr. Martinez can prescribe some cough medicine as the patient's cough is not going away/stopping. Patient is seeing Dr. Becker tomorrow for Hospital Discharge Follow up (Patient will only see MD's/DO's and not LICENSED MENTAL HEALTH PROFESSIONAL's and first available Hospital D/C w/ Dr. Martinez is almost 3 weeks post-discharge.) Please advise. Nat Solis documented in this encounter [facility] 02-23-2025 Telephone encounter Note Most of the cough meds are now otc. Would start with delsym otc [facility] 02-23-2025 Telephone encounter Note Spoke with patient's son and rescheduled with Dr. Becker as patient will only see MD's/DO's and not LICENSED MENTAL HEALTH PROFESSIONAL's. Nat Solis [facility] 02-23-2025 Miscellaneous Notes Spoke with patient's son and rescheduled with Dr. Becker as patient will only see MD's/DO's and not LICENSED MENTAL HEALTH PROFESSIONAL's. Nat Solis Pt was scheduled for 20min 4c Est continued cough follow up. On 02/24/25. Pt was actually admitted to [facility] 02/10/25 and dc'd on 02/14/25 with a diagnosis of pneumonia and RSV. Pt needs rescheduled for a 4c Est Hosp/ER follow up. Jose Ortiz LPN documented in this encounter [facility] 02-23-2025 Telephone encounter Note Spoke with patient's son to reschedule the an appointment. Patient's son is asking if Dr. Martinez can prescribe some cough medicine as the patient's cough is not going away/stopping. Patient is seeing Dr. Becker tomorrow for Hospital Discharge Follow up (Patient will only see MD's/DO's and not LICENSED MENTAL HEALTH PROFESSIONAL's and first available Hospital D/C w/ Dr. Martinez is almost 3 weeks post-discharge.) Please advise. Nat Solis [facility] 02-23-2025 Telephone encounter Note Pt was scheduled for 20min 4c Est continued cough follow up. On 02/24/25. Pt was actually admitted to [facility] 02/10/25 and dc'd on 02/14/25 with a diagnosis of pneumonia and RSV. Pt needs rescheduled for a 4c Est Hosp/ER follow up. Jose Ortiz LPN [facility] 02-23-2025 Telephone encounter Note Son called and confirmed 5/13 and 5/14 [facility] Work Phone: 02-23-2025 Miscellaneous Notes Son called and confirmed 5/13 and 5/14 Schedule updated Message left for patient to contact office to confirm 5/13 lab and office visit, treatment next day. Cycle 2 cancelled and needs rescheduled for week after her port is placed on 03/04/25. The rest of schedule will need adjusted. Please call patient with new times. She is aware of all this as it was discussed at OV today. Elaina Silverio, MAGNUS documented in this encounter [facility] 02-23-2025 Telephone encounter Note Schedule updated Message left for patient to contact office to confirm 5/13 lab and office visit, treatment next day. [facility] 02-22-2025 Telephone encounter Note Cycle 2 cancelled and needs rescheduled for week after her port is placed on 03/04/25. The rest of schedule will need adjusted. Please call patient with new times. She is aware of all this as it was discussed at OV today. Elaina Silverio, RN [facility] Work Phone: 02-22-2025 History of Presen t illness Narrative Radiology Service Progress Note PATIENT NAME: Telma Tineo DATE OF SERVICE: February 22, 2025 TIME: 2:02 PM PATIENT IDENTITY VERIFICATION COMPLETED USING TWO (2) IDENTIFIERS: Name and Date of confirmed by patient verbally. FALL SCREENING: Has the patient had 2 falls in the last year or 1 fall with injury or currently using an Ambulatory Assistive Device (Walker, Cane, Wheelchair, Crutches, etc.)? Yes, Patient High Risk for Falls What interventions were put in place to prevent falls during this visit? Increased Observations by Caregivers PATIENT GENDER DATA: Assigned female at . status: : No status: NO. PATIENT RELEVANT IMPLANT DATA REVIEWED: Not Applicable PATIENT PRESENTS WITH AN IMPLANTABLE OR ATTACHED HAT AND CAP DRYING ROOM ATTENDANT: Yes [facility] RADIOLOGY DEPARTMENT: General X-ray: Exam(s) Completed: Chest X-Ray PERIPHERAL IV DATA: Not applicable SIGNED BY: RT Tahmina(Dylan) February 22, 2025 2:02 PM documented in this encounter [facility] 02-22-2025 Note HNO ID: [id number] Author: TREVOR ORDONEZ RT(R) Service: ? Author Type: Technologist Type: Progress Notes Filed: 02/22/2025 14:02 Note Text: Radiology Service Progress Note PATIENT NAME: Telma Tineo DATE OF SERVICE: February 22, 2025 TIME: 2:02 PM PATIENT IDENTITY VERIFICATION COMPLETED USING TWO (2) IDENTIFIERS: Name and Date of confirmed by patient verbally. FALL SCREENING: Has the patient had 2 falls in the last year or 1 fall with injury or currently using an Ambulatory Assistive Device (Walker, Cane, Wheelchair, Crutches, etc.)? Yes, Patient High Risk for Falls What interventions were put in place to prevent falls during this visit? Increased Observations by Caregivers PATIENT GENDER DATA: Assigned female at . status: : No status: NO. PATIENT RELEVANT IMPLANT DATA REVIEWED: Not Applicable PATIENT PRESENTS WITH AN IMPLANTABLE OR ATTACHED HAT AND CAP DRYING ROOM ATTENDANT: Yes [employer] RADIOLOGY DEPARTMENT: General X-ray: Exam(s) Completed: Chest X-Ray PERIPHERAL IV DATA: Not applicable SIGNED BY: Trevor Ольга, RT(R) February 22, 2025 2:02 PM [facility] 02-22-2025 Note HNO ID: [id number] Author: JUAN MIGUEL YUSUF MD Service: ? Author Type: Physician Type: Progress Notes Filed: 02/22/2025 11:16 Note Text: (Elements copied from my note dated January 25, 2025, have been reviewed and updated where appropriate, and all reflect current assessment and medical decision making from today's encounter, February 22, 2025) HISTORY OF PRESENT ILLNESS: Telma Tineo is a 84 year old female presented with painless jaundice, admitted initially at [facility], transferred for further work up at [facility]. Saw hepatobiliary surgery there, noted pancreatic mass. She underwent CBD stenting, and biopsy of mass at head of pancreas. Dx adenocarcinoma. Staging otherwise negative. Per surgery she is not currently resectable, they recommend neoadjuvant chemotherapy, followed by re assessment for surgery. Met with patient and her family today. She is a very active and functional lady, co morbidities noted, but well managed. Here for follow up, developed pneumonia was in hospital for 6 days discharged on February 14, 2025. Feels weak still, but still coughing up white to yellow phlegm. No more fever. Eating and drinking. CLINICAL IMPRESSION: Borderline rnresectable pancreatic adenocarcinoma Developed clinical pneumonia after day 8 cycle 1, remains weak. RECOMMENDATION/PLAN: 1. Plan preop NAC with gemcitabine and abraxane. Discussed also FolFIrinOx, but concerns about tolerability patient prefers gemcitabine abraxane regimen. 2. Update chest x ray. 3. Port in if chest looks improved. 4. Resume chemo at attenuated doses after that, we will reconvene prior to chemo to assess her ability to tolerate. Written and verbal health teaching given to patient, patient verbalizes understanding and agrees with treatment plan. PAST MEDICAL HISTORY Diagnosis Date Allergies Lundberg's palsy Bronchiectasis (HCC) Gastroesophageal reflux disease without esophagitis History of CVA (cerebrovascular accident) Mild intermittent asthma without complication (HCC) Primary hypertension Type 2 diabetes mellitus without complication, without long-term current use of insulin (HCC) PAST SURGICAL HISTORY Procedure Laterality Date APPENDECTOMY CATARACT EXTRACTION HX Bilateral COLONOSCOPY SCREENING 10/04/2022 no specimens collected, No further screening colonoscopies required HEMORRHOIDECTOMY X's HYSTERECTOMY HX without bso PAST SURGICAL HISTORY OF ? repair of cystocele RHINOPLASTY N/A SLING OPER STRES INCONTINENCE TONSILLECTOMY AND ADENOIDECTOMY FAMILY HISTORY Problem Relation Age of Onset Pancreatic Cancer Mother Lung Cancer Father No Known Problems Sister No Known Problems Sister No Known Problems Sister No Known Problems Sister No Known Problems Sister Cancer Brother No Known Problems Brother Cancer Brother No Known Problems Brother Cancer Brother Heart disease Son No Ocular Disease No Family History Social History Tobacco Use Smoking status: Former Smokeless tobacco: Never Tobacco comments: Light smoker for 7 years in early adulthood Vaping Use Vaping status: Never Used Substance Use Topics Alcohol use: Not Currently Drug use: Never ALLERGIES: ALLERGIES Allergen Reactions Penicillins Anaphylaxis Tetracycline Rash Tramadol Intolerance Trembling CURRENT OUTPATIENT MEDICATIONS: pantoprazole DR (PROTONIX) 40 mg tablet Take 1 tablet by mouth two times a day before meals at 6 am and 4 pm. insulin NPH-insulin regular 70/30 (NOVOLIN 70/30 U-100 INSULIN) 100 unit/mL suspension Inject 5 Units subcutaneously daily with breakfast. Patient should start on February 15, 2025. Lancets Test Four times a day. Insulin Dep? Yes uncontrolled dm blood sugar diagnostic (BLOOD GLUCOSE TEST) test strip Test 4 times daily, Insulin Dep? Yes dm 2 uncontrolled. ondansetron (ZOFRAN) 8 mg tablet Take 1 tablet by mouth every 8 hours as needed. sucralfate (CARAFATE) 1 gram tablet Take 1 tablet by mouth four times daily. Insulin Syringe-Needle U-100 0.5 mL 31 gauge x 5/16 1 Each two times a day. blood sugar diagnostic test strip Use with blood glucose test 2 times daily, Insulin Dep? Yes Lancets Use with blood glucose test 2 times daily. Insulin Dep? Yes alcohol swabs Use with blood glucose test 2 times daily. Insulin Dep? Yes glucose 4 gram chewable tablet Take 4 tablets by mouth as needed for low blood sugar. Blood-Glucose Meter,Continuous (FREESTYLE TOLU 3 READER) misc Use to check blood sugar at least four (4) times daily. Blood-Glucose Sensor (FREESTYLE TOLU 3 PLUS SENSOR) benjamin Apply new sensor every fifteen (15) days to upper arm. metoprolol tartrate, short acting, (LOPRESSOR) 50 mg tablet Take 1.5 tablets by mouth two times a day. PEG 400-propylene glycol (SYSTANE ULTRA) 0.4-0.3 % ophthalmic solution Use 1 Drop in both eyes three times a day. atorvastatin (LIPITOR) 20 mg tablet Take 1 tablet by mouth once daily. (more content not included)... [facility] 02-18-2025 Note HNO ID: [id number] Author: DAINA CANTU, RN Service: ? 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 Smoking Cessation: former smoker Discussion / recommendations: Neoadjuvant chemotherapy then restaging scans Tumor Board Attendance: Sommer Garcia, Jose Kaminski, Anel Diaz, Sandro Dumas, Daina Cantu, Ayaz Nguyễn, Ashutosh Freeman, Belen Willis, Chi Johnson, Demetris Emerson, Katy Hardin, Jazmyne Ibarra, Nancy Pedersen, Jazmyne Christianson, Yolanda Guallpa, Waqas Little, Bharati Antoine, Latrice Lee, Hao Corea, Annette Willard, Cecille Gonzalez, Vi De La Rosa, David White. RAYRAY Jamil, RN Flux Mixer' The above documentation represents the discussion outcomes after review of this patient's case during the weekly Tumor Board. [facility] 02-15-2025 Telephone encounter Note Updated Dr. Horne for anurag this . Keep appointments as scheduled. Elaina Silverio RN [facility] Work Phone: 02-15-[address] Horne for anurag this . Keep appointments as scheduled. Elaina Silverio RN DISCHARGE CALL BACK Today's date: February 15, 2025 Notified of Pt discharge by: Erin Patient discharged on 02/14/25 from [facility] to Home Primary Cancer Diagnosis: pancreatic Admitting Diagnosis: acute pneumonia Discharge Summary/SBAR reviewed: Yes Handoff Discussed with Transitional Flux Mixer: N/A Psychosocial Risk Factors: None If patient discharged to SNF/Rehab Facility, phone call completed to reinforce discharge instructions and follow up: N/A Call Disposition: Called patient and spoke with Timothy Patient identified by name and date of . YES Patient with symptom issues: No Pain: No=0 (pain 0 on a scale of 0-10). Is patient followed by Palliative Medicine? No Palliative Medicine follow up: N/A Any new barriers to care identified? No Any new referrals needed? No Social Work Follow-Up visit scheduled? NA Does the patient need interventions No or same day appointment: No MEDICATION ADHERENCE Patient discharged with prescriptions? Yes, Marinol, Robitussin/Mucinex, Levaquin Discharge prescriptions filled: Yes Patient understands when to take prescriptions: Yes FOLLOW UP Patient scheduled for follow-up appointment within 5 business days of discharge? Yes Patient reminded of follow-up appointment with [facility] provider, Dr. Yusuf on 02/22/25: Yes Discussed Has follow up with PCP. Will discuss labs with Dr. Yusuf and mary anne for port on . Will call back if plan needs to change. Timothy is picking up Rx at this time. Questions answered. PATIENT EDUCATION / REINFORCEMENT Patient verbalizes understanding of when to seek Medical Attention? YES Patient verbalizes understanding of after hours and weekend phone number? YES Maria Isabel Silverio RN documented in this encounter [facility] 02-15-2025 Note HNO ID: [id number] Author: NANCY HDZ MA Service: ? Author Type: Logistics Operations Director Type: Progress Notes Filed: 02/15/2025 10:31 Note Text: POPULATION HEALTH NAVIGATION OUTREACH Action/February 15, 2025 10:18 AM CM Pool Message Type: TCM Navigation Team Update / Actionable Items Spoke with Patient's son. Patient TCM eligible till 03/01/2025. High risk 17% or higher. Please schedule within 7 days Patient discharged from [facility] Discharge date: 02/14/2025 Admitted for: Acute Pneumonia Readmission Risk: 17 Value-Based Contract: ACO Six week follow up scheduled with Henok Martinez MD on March 12, 2025 No Health Maintenance Due Outcome: Spoke with patients girma Aguirre in regards to scheduling patient for her hospital follow up. He advises that patient is supposed to be seen within the next two days. She has been scheduled on February 16, 2025 with Cinthia Reno CNP Reason for Outreach Community Monitoring/Network Navigator Pools AND Phone Line: CM Pool Care Gaps due: Follow-up Appointment Patient Contacted: Spoke to patient/parent/or legal guardian Patient identified by name and : Yes Community Monitoring/Network Navigator Pools AND Phone Line actions taken: Patient scheduled / pended orders: Hospital Follow-up: High risk >15% Navigation Signature: Nancy Hdz MA February 15, 2025 10:18 AM [facility] 02-15-2025 History of Presen t illness Narrative POPULATION HEALTH NAVIGATION OUTREACH Action/February 15, 2025 10:18 AM CM Pool Message Type: TCM Navigation Team Update / Actionable Items Spoke with Patient's son. Patient TCM eligible till 03/01/2025. High risk 17% or higher. Please schedule within 7 days Patient discharged from [facility] Discharge date: 02/14/2025 Admitted for: Acute Pneumonia Readmission Risk: 17 Value-Based Contract: ACO Six week follow up scheduled with Henok Martinez MD on March 12, 2025 No Health Maintenance Due Outcome: Spoke with patients son Timothy in regards to scheduling patient for her hospital follow up. He advises that patient is supposed to be seen within the next two days. She has been scheduled on February 16, 2025 with Cinthia Reno CNP Reason for Outreach Community Monitoring/Network Navigator Pools & Phone Line: CM Pool Care Gaps due: Follow-up Appointment Patient Contacted: Spoke to patient/parent/or legal guardian Patient identified by name and : Yes Community Monitoring/Network Navigator Pools & Phone Line actions taken: Patient scheduled / pended orders: Hospital Follow-up: High risk >15% Navigation Signature: Nancy Hdz MA February 15, 2025 10:18 AM Transition Care Management (TCM) Initial Outreach PCP Update / Actionable Items Navigation Team Update / Actionable Items Spoke with Patient's son. Patient TCM eligible till 03/01/2025. High risk 17% or higher. Please schedule within 7 days. Thanks! [facility] TCM Home Visit Referral Source of Stratification: [facility] Hospital Admission Status: Discharged Readmission Risk Score: 17 Patient's zip code: [address] Is zip code within program service area: Y Patient meets program referral criteria: No Patient does not qualify for High Risk TCM Home Visit program due to: Readmission Risk Score does not meet criteria Disposition: Patient does not qualify for [facility], will provide TCM outreach follow-up for 30-days Patient Source: In-Network Discharge Initial outreach: TCM discharge report Outreach Summary: February 22, 2025 10:00 AM Nurse Vst with Lab/[facility] Hematology/Oncology February 22, 2025 10:20 AM Office Vst with Juan Miguel Yusuf MD Hematology/Oncology February 24, 2025 11:00 AM 3 Hr Tx with TREATMENT RM 6 [facility] Hematology/Oncology Spoke with patient's son, Timothy. States patient is doing well. Denies any new or worsening symptoms. Partial medication review completed. Son with monitor blood sugars closely with insulin changes. Would like navigation to reach out to schedule a PCP appointment, Aware of other follow ups. Denies any social work or behavioral health needs at this time. Denies any other needs or concerns. START taking these medications dronabinol 2.5 mg capsule Take 1 capsule by mouth two times a day before meals for 30 days. guaiFENesin-dextromethorphan 100-10 mg/5 mL syrup Take 10 mL by mouth every 4 hours as needed for cough for up to 5 days. levoFLOXacin 750 mg tablet Take 1 tablet by mouth once daily for 3 days. CHANGE how you take these medications insulin NPH-insulin regular 70/30 100 unit/mL suspension Inject 5 Units subcutaneously daily with breakfast. Patient should start on February 15, 2025. Start taking on: February 15, [address] 40 mg tablet Take 1 tablet by mouth two times a day before meals at 6 am and 4 pm. What changed: when to take this STOP taking these medications azithromycin 250 mg tablet losartan 100 mg tablet Patient discharged from [facility] Discharge date: 02/14/2025 Admitted for: Acute Pneumonia Readmission Risk: 17 Value-Based Contract: ACO Contact: Contact made with patient: Yes Hi, my name is Paulette Cagle RN and I am calling from the [facility] on behalf of your Primary Care Provider, Henok Martinez MD. I understand you were recently in the hospital, so I am calling to check in with you to ensure you are feeling well now that you are home. May I ask you a few questions related to your hospital stay and well-being? Yes Spoke to: SonTimothy Validation: Validated the person spoken to is actively involved in the patient's care. The patient was identified by Name and Date of . Symptoms: Are you feeling about the same, better or worse since leaving the hospital? Better Medications: Do you have any questions about taking your medications, including which medications you should be on, or do you need refills on your medications? Yes Discussed the patient's questions and/or concerns. If applicable, the appropriate team/provider updated. Medication Review: Partial mediation review completed, per patient preference Discharge Instructions: Your Discharge Instructions / After Visit Summary (AVS) are important in guiding you through the recovery process. Do you have any questions related to your discharge instructions? Yes Discussed the patient's questions and/or concerns. If applicable, the appropriate Team/Provider updated in FYI box. Home Care: Were you discharged with home care? No Equipment: Do you have all the necessary equipment and supplies needed at your home? Yes The patient verbalizes understanding the use of the equipment and supplies Social: Your mental health is as important to us as your physical health. Would you mind answering a few questions on this topic? Yes On the Storyboard review: Food Insecurity, Transportation, Depression, Housing, and Financial Strain: Complete any SDOHs, listed above, if not addressed in the past 3 months. If all SDOHs, listed above, have been addressed within the last 3 months, confirm responses and update any SDOHs that have changed. Action Taken: No needs verbalized. No action required. Follow-Up Appointment: [Appointment / TCM Follow-up within 14 days] I would like to help you schedule a hospital follow-up virtual or telephone visit with your PCP. This is a great way for you to connect with your provider to ensure you have safely transitioned home. If you are agreeable, I will send your request to a biomass power plant superintendent who will contact and assist you with that appointment. This will give you an opportunity to ask any questions or address any concerns you may have with your PCP. Inform the patient that if they have any questions or concerns prior to that appointment, to call their PCP's office right away. Appointment Action: Patient desires an appointment. Complete Navigation Team box and route to appropriate pool for scheduling. Education details: Patient and family educated on issues/questions related to reason for admission, transition of care topics, and follow-up needed upon discharge. Paulette Cagle RN February 15, 2025 9:59 AM documented in this encounter [facility] 02-15-2025 Telephone encounter Note DISCHARGE CALL BACK Today's date: February 15, 2025 Notified of Pt discharge by: Erin Patient discharged on 02/14/25 from [facility] to [facility] Primary Cancer Diagnosis: pancreatic Admitting Diagnosis: acute pneumonia Discharge Summary/SBAR reviewed: Yes Handoff Discussed with Transitional Flux Mixer: N/A Psychosocial Risk Factors: None If patient discharged to SNF/Rehab Facility, phone call completed to reinforce discharge instructions and follow up: N/A Call Disposition: Called patient and spoke with Timothy Patient identified by name and date of . YES Patient with symptom issues: No Pain: No=0 (pain 0 on a scale of 0-10). Is patient followed by Palliative Medicine? No Palliative Medicine follow up: N/A Any new barriers to care identified? No Any new referrals needed? No Social Work Follow-Up visit scheduled? NA Does the patient need interventions No or same day appointment: No MEDICATION ADHERENCE Patient discharged with prescriptions? Yes, Marinol, Robitussin/Mucinex, Levaquin Discharge prescriptions filled: Yes Patient understands when to take prescriptions: Yes FOLLOW UP Patient scheduled for follow-up appointment within 5 business days of discharge? Yes Patient reminded of follow-up appointment with [facility] provider, Dr. Yusuf on 02/22/25: Yes Discussed Has follow up with PCP. Will discuss labs with Dr. Yusuf and mary anne osborn on . Will call back if plan needs to change. Timothy is picking up Rx at this time. Questions answered. PATIENT EDUCATION / REINFORCEMENT Patient verbalizes understanding of when to seek Medical Attention? YES Patient verbalizes understanding of after hours and weekend phone number? YES Maria Isabel Royer, RN [facility] 02-15-2025 Note HNO ID: [id number] Author: PAULETTE CAGLE RN Service: ? Author Type: Registered Nurse Type: Progress Notes Filed: 02/15/2025 10:07 Note Text: Transition Care Management (TCM) Initial Outreach PCP Update / Actionable Items Navigation Team Update / Actionable Items Spoke with Patient's son. Patient TCM eligible till 03/01/2025. High risk 17% or higher. Please schedule within 7 days. Thanks! [facility] TCM Home Visit Referral Source of Stratification: [facility] Hospital Admission Status: Discharged Readmission Risk Score: 17 Patient's zip code: [address] Is zip code within program service area: Y Patient meets program referral criteria: No Patient does not qualify for High Risk TCM Home Visit program due to: Readmission Risk Score does not meet criteria Disposition: Patient does not qualify for [facility], will provide TCM outreach follow-up for 30-days Patient Source: In-Network Discharge Initial outreach: TCM discharge report Outreach Summary: February 22, 2025 10:00 AM Nurse Vst with Lab/[place] [facility] Hematology/Oncology February 22, 2025 10:20 AM Office Vst with Juan Miguel Yusuf MD Hematology/Oncology February 24, 2025 11:00 AM 3 Hr Tx with TREATMENT RM 6 [facility] Hematology/Oncology ----- Spoke with patient's sonTimothy. States patient is doing well. Denies any new or worsening symptoms. Partial medication review completed. Son with monitor blood sugars closely with insulin changes. Would like navigation to reach out to schedule a PCP appointment, Aware of other follow ups. Denies any social work or behavioral health needs at this time. Denies any other needs or concerns. ----- START taking these medications dronabinol 2.5 mg capsule Take 1 capsule by mouth two times a day before meals for 30 days. guaiFENesin-dextromethorphan 100-10 mg/5 mL syrup Take 10 mL by mouth every 4 hours as needed for cough for up to 5 days. levoFLOXacin 750 mg tablet Take 1 tablet by mouth once daily for 3 days. CHANGE how you take these medications insulin NPH-insulin regular 70/30 100 unit/mL suspension Inject 5 Units subcutaneously daily with breakfast. Patient should start on February 15, 2025. Start taking on: February 15, [address] 40 mg tablet Take 1 tablet by mouth two times a day before meals at 6 am and 4 pm. What changed: when to take this STOP taking these medications azithromycin 250 mg tablet losartan 100 mg tablet Patient discharged from [facility] Discharge date: 02/14/2025 Admitted for: Acute Pneumonia Readmission Risk: 17 Value-Based Contract: ACO Contact: Contact made with patient: Yes Hi, my name is Paulette Cagle RN and I am calling from the [facility] on behalf of your Primary Care Provider, Henok Martinez MD. I understand you were recently in the hospital, so I am calling to check in with you to ensure you are feeling well now that you are home. May I ask you a few questions related to your hospital stay and well-being? Yes Spoke to: SonTimothy Validation: Validated the person spoken to is actively involved in the patient's care. The patient was identified by Name and Date of . Symptoms: Are you feeling about the same, better or worse since leaving the hospital? Better Medications: Do you have any questions about taking your medications, including which medications you should be on, or do you need refills on your medications? Yes Discussed the patient's questions and/or concerns. If applicable, the appropriate team/provider updated. Medication Review: Partial mediation review completed, per patient preference Discharge Instructions: Your Discharge Instructions / After Visit Summary (AVS) are important in guiding you through the recovery process. Do you have any questions related to your discharge instructions? Yes Discussed the patient's questions and/or concerns. If applicable, the appropriate Team/Provider updated in FYI box. Home Care: Were you discharged with home care? No Equipment: Do you have all the necessary equipment and supplies needed at your home? Yes The patient verbalizes understanding the use of the equipment and supplies Social: Your mental health is as important to us as your physical health. Would you mind answering a few questions on this topic? Yes On the Storyboard review: Food Insecurity, Transportation, Depression, Housing, and Financial Strain: Complete any SDOHs, listed above, if not addressed in the past 3 months. If all SDOHs, listed above, have been addressed within the last 3 months, confirm responses and update any SDOHs that have changed. Action Taken: No needs verbalized. No action required. Follow-Up Appointment: [Appointment / TCM Fo (more content not included)... [facility] 02-15-2025 Note Patient Outreach [place] TELMA TINEO ([id number]) 1940 F Date Time Provider Department 02/15/25 PAULETTE CAGLE During your visit today, we recorded the following information about you: Paulette Cagle, RN 02/15/2025 10:07 AM Signed Transition Care Management (TCM) Initial Outreach PCP Update / Actionable Items Navigation Team Update / Actionable Items Spoke with Patient's son. Patient TCM eligible till 03/01/2025. High risk 17% or higher. Please schedule within 7 days. Thanks! [facility] TCM Home Visit Referral Source of Stratification: TCM [facility] Hospital Admission Status: Discharged Readmission Risk Score: 17 Patient's zip code: [address] Is zip code within program service area: Y Patient meets program referral criteria: No Patient does not qualify for High Risk TCM Home Visit program due to: Readmission Risk Score does not meet criteria Disposition: Patient does not qualify for [facility], will provide TCM outreach follow-up for 30-days Patient Source: In-Network Discharge Initial outreach: TCM discharge report Outreach Summary: February 22, 2025 10:00 AM Nurse Vst with Lab/[place] [facility] Hematology/Oncology February 22, 2025 10:20 AM Office Vst with Juan Miguel Yusuf MD Hematology/Oncology February 24, 2025 11:00 AM 3 Hr Tx with TREATMENT RM 6 [facility] Hematology/Oncology ------ Spoke with patient's son, Timothy. States patient is doing well. Denies any new or worsening symptoms. Partial medication review completed. Son with monitor blood sugars closely with insulin changes. Would like navigation to reach out to schedule a PCP appointment, Aware of other follow ups. Denies any social work or behavioral health needs at this time. Denies any other needs or concerns. ------ START taking these medications dronabinol 2.5 mg capsule Take 1 capsule by mouth two times a day before meals for 30 days. guaiFENesin-dextromethorphan 100-10 mg/5 mL syrup Take 10 mL by mouth every 4 hours as needed for cough for up to 5 days. levoFLOXacin 750 mg tablet Take 1 tablet by mouth once daily for 3 days. CHANGE how you take these medications insulin NPH-insulin regular 70/30 100 unit/mL suspension Inject 5 Units subcutaneously daily with breakfast. Patient should start on February 15, 2025. Start taking on: February 15, [address] 40 mg tablet Take 1 tablet by mouth two times a day before meals at 6 am and 4 pm. What changed: when to take this STOP taking these medications azithromycin 250 mg tablet losartan 100 mg tablet Patient discharged from [facility] Discharge date: 02/14/2025 Admitted for: Acute Pneumonia Readmission Risk: 17 Value-Based Contract: ACO Contact: Contact made with patient: Yes Hi, my name is Paulette Cagle RN and I am calling from the [facility] on behalf of your Primary Care Provider, Henok Martinez MD. I understand you were recently in the hospital, so I am calling to check in with you to ensure you are feeling well now that you are home. May I ask you a few questions related to your hospital stay and well-being? Yes Spoke to: SonTimothy Validation: Validated the person spoken to is actively involved in the patient's care. The patient was identified by Name and Date of . Symptoms: Are you feeling about the same, better or worse since leaving the hospital? Better Medications: Do you have any questions about taking your medications, including which medications you should be on, or do you need refills on your medications? Yes Discussed the patient's questions and/or concerns. If applicable, the appropriate team/provider updated. Medication Review: Partial mediation review completed, per patient preference Discharge Instructions: Your Discharge Instructions / After Visit Summary (AVS) are important in guiding you through the recovery process. Do you have any questions related to your discharge instructions? Yes Discussed the patient's questions and/or concerns. If applicable, the appropriate Team/Provider updated in FYI box. Home Care: Were you discharged with home care? No Equipment: Do you have all the necessary equipment and supplies needed at your home? Yes The patient verbalizes understanding the use of the equipment and supplies Social: Your mental health is as important to us as your physical health. Would you mind answering a few questions on this topic? Yes On the Storyboard review: Food Insecurity, Transportation, Depression, Housing, and Financial Strain: Complete any SDOHs, listed above, if not addressed in the past 3 months. If all SDOHs, listed above, have been addressed wit (more content not included)... [facility] 02-13-2025 Note [facility] 02-12-2025 Note [facility] 02-12-2025 Note HNO ID: [id number] Author: YUSUF EPPS RN Service: ? Author Type: Registered Nurse Type: Progress Notes Filed: 02/12/2025 08:21 Note Text: Patient is inpatient [facility] 02-11-2025 Note HNO ID: [id number] Author: HILDA WRIGHT MA Service: ? Author Type: Logistics Operations Director Type: Progress Notes Filed: 02/11/2025 17:11 Note Text: POPULATION HEALTH NAVIGATION OUTREACH Action/FYI Patient's son returning [facility]'s phone call. Son stated patient is currently admitted at [facility]. You can reach son at [phone]. Reason for Outreach Healthy at Home Care Gaps due: N/A Call received from: Patient Patient Contacted: Spoke to patient/parent/or legal guardian Patient identified by name and date of Yes Healthy at Home actions taken: Routed to [facility] Devon Bynum RN as FYI Navigation Signature: Hilda Wright MA February 11, 2025 5:09 PM [facility] 02-11-2025 History of Presen t illness Narrative POPULATION HEALTH NAVIGATION OUTREACH Action/FYI Patient's son returning [facility]'s phone call. Son stated patient is currently admitted at [facility]. You can reach son at [phone]. Reason for Outreach Healthy at Home Care Gaps due: N/A Call received from: Patient Patient Contacted: Spoke to patient/parent/or legal guardian Patient identified by name and date of Yes Healthy at Home actions taken: Routed to [facility] Devon Bynum RN as FYI Navigation Signature: Hilda Wright MA February 11, 2025 5:09 PM documented in this encounter [facility] 02-11-2025 Note HNO ID: [id number] Author: DEVON BYNUM RN Service: ? Author Type: Registered Nurse Type: Progress Notes Filed: 02/11/2025 16:19 Note Text: Transitional Care Management (TCM) Inpatient Outreach N/A - No specialty updates needed Summary: Patient admitted to: [facility] Patient admitted on: (Not on file) 02/10/25 Admitted for: acute Pneumonia Contact made with patient: Heather Marieviktor, II am a Registered Nurse and I am calling from the [facility] on behalf of your primary care provider. I am sorry that I missed you today, but your care is important to us, and we would like to touch base with you. Please check your My Chart for a message related to your current hospital stay., Thank you and have a great day. Devon Bynum RN February 11, 2025 [facility] 02-11-2025 History of Presen t illness Narrative Transitional Care Management (TCM) Inpatient Outreach N/A - No specialty updates needed Summary: Patient admitted to: [facility] Patient admitted on: (Not on file) 02/10/25 Admitted for: acute Pneumonia Contact made with patient: Heather Marieviktor, II am a Registered Nurse and I am calling from the [facility] on behalf of your primary care provider. I am sorry that I missed you today, but your care is important to us, and we would like to touch base with you. Please check your My Chart for a message related to your current hospital stay., Thank you and have a great day. Devon Bynum RN February 11, 2025 documented in this encounter [facility] 02-11-2025 Note [facility] 02-11-2025 Note Patient Outreach ([facility]) TELMA TINEO ([id number]) 1940 F Date Time Provider Department 02/11/25 HILDA WRIGTH During your visit today, we recorded the following information about you: Hilda Wright MA 02/11/2025 5:11 PM Signed POPULATION HEALTH NAVIGATION OUTREACH Action/FYI Patient's son returning [facility]'s phone call. Son stated patient is currently admitted at [facility]. You can reach son at [phone]. Reason for Outreach Healthy at Home Care Gaps due: N/A Call received from: Patient Patient Contacted: Spoke to patient/parent/or legal guardian Patient identified by name and date of Yes Healthy at Home actions taken: Routed to [facility] Devon Bynum RN as FYI Navigation Signature: Hilda Wright MA February 11, 2025 5:09 PM Allergies As of Date: 02/11/2025 Noted Allergy Reaction PENICILLINS 09/14/2021 10 - Anaphylaxis TETRACYCLINE 09/14/2021 2 - Rash TRAMADOL 07/01/2024 5 - Intolerance Comments: Trembling Date Reviewed: 02/11/2025 Reviewed by: Daphnie Ch LPN - Fully Assessed Reason for Visit: Population Health Navigation Outreach [3910] Cmt: H@[facility] Call Prescriptions as of 02/11/2025 - insulin NPH-insulin regular 70/30 (NOVOLIN 70/30 U-100 INSULIN) 100 unit/mL suspension Inject 17 Units subcutaneously two times a day with meals. With breakfast and dinner - Lancets Test Four times a day. Insulin Dep? Yes uncontrolled dm - blood sugar diagnostic (BLOOD GLUCOSE TEST) test strip Test 4 times daily, Insulin Dep? Yes dm 2 uncontrolled. - ondansetron (ZOFRAN) 8 mg tablet Take 1 tablet by mouth every 8 hours as needed. - sucralfate (CARAFATE) 1 gram tablet Take 1 tablet by mouth four times daily. - Insulin Syringe-Needle U-100 0.5 mL 31 gauge x 5/16 1 Each two times a day. - blood sugar diagnostic test strip Use with blood glucose test 2 times daily, Insulin Dep? Yes - Lancets Use with blood glucose test 2 times daily. Insulin Dep? Yes - alcohol swabs Use with blood glucose test 2 times daily. Insulin Dep? Yes - glucose 4 gram chewable tablet Take 4 tablets by mouth as needed for low blood sugar. - Blood-Glucose Meter,Continuous (FREESTYLE TOLU 3 READER) [facility] Use to check blood sugar at least four (4) times daily. - Blood-Glucose Sensor (FREESTYLE TOLU 3 PLUS SENSOR) benjamin Apply new sensor every fifteen (15) days to upper arm. - metoprolol tartrate, short acting, (LOPRESSOR) 50 mg tablet Take 1.5 tablets by mouth two times a day. - losartan (COZAAR) 100 mg tablet Take 1 tablet by mouth once daily. - pantoprazole DR (PROTONIX) 40 mg tablet Take 1 tablet by mouth two times a day. - PEG 400-propylene glycol (SYSTANE ULTRA) 0.4-0.3 % ophthalmic solution Use 1 Drop in both eyes three times a day. - atorvastatin (LIPITOR) 20 mg tablet Take 1 tablet by mouth once daily. - ELIQUIS 5 mg tab(s) Take 5 mg by mouth two times a day. - amLODIPine (NORVASC) 10 mg tablet Take 10 mg by mouth once daily. - Blood Pressure Test Kit-Large (Mapidy ARM BP MONITOR) 1 Each once daily. Facility-Administered Medications as of 02/11/2025 - NaCl 0.9% iv flush bag - levoFLOXacin iv piggyback 750 mg in D5W 150 mL (LEVAQUIN) - amLODIPine 10 mg tab(s) (NORVASC) - atorvastatin 20 mg tab(s) (LIPITOR) - apixaban 5 mg tab(s) (ELIQUIS) - insulin NPH-insulin regular 70/30 17 Units injection (mixed intermediate and short acting) - losartan 100 mg tab(s) (COZAAR) - metoprolol tartrate (short acting) (LOPRESSOR) tab(s) 75 mg - pantoprazole DR 40 mg tab(s) (PROTONIX) - sucralfate 1 g tab(s) (CARAFATE) - dextrose 15 gram/32 mL 15 g (TRUEPLUS) - glucagon 1 mg injection - dextrose 10% iv bolus - NaCl 0.9% iv flush bag - acetaminophen 650 mg tab(s) (TYLENOL) - guaiFENesin-dextromethorphan 100-10 mg/5 mL 10 mL oral liquid (ROBITUSSIN DM) - NaCl 0.9% iv infusion - insulin lispro injection (rapid acting) (ADMElog) - ondansetron (PF) 4 mg injection (ZOFRAN) - iv contrast (radiology procedure) Problem List As Of Date 02/11/2025 Noted Resolved Mild intermittent asthma without complication [*09/14/2021 Primary hypertension [I10] 09/14/2021 Type 2 diabetes mellitus without complication, *09/14/2021 Gastroesophageal reflux disease without esophag*09/14/2021 History of CVA (cerebrovascular accident) [Z86.*09/14/2021 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 [facility] 02-11-2025 Note Patient Outreach ([facility] TELMA TINEO ([id number]) 1940 F Date Time Provider Department 02/11/25 DEVON BYNUMDe During your visit today, we recorded the following information about you: Devon Bynum RN 02/11/2025 4:19 PM Signed Transitional Care Management (TCM) Inpatient Outreach N/A - No specialty updates needed Summary: Patient admitted to: [facility] Patient admitted on: (Not on file) 02/10/25 Admitted for: acute Pneumonia Contact made with patient: Heather Marieviktor, NANCY am a Registered Nurse and I am calling from the [facility] on behalf of your primary care provider. I am sorry that I missed you today, but your care is important to us, and we would like to touch base with you. Please check your My Chart for a message related to your current hospital stay., Thank you and have a great day. Devon Bynum RN February 11, 2025 Allergies As of Date: 02/11/2025 Noted Allergy Reaction PENICILLINS 09/14/2021 10 - Anaphylaxis TETRACYCLINE 09/14/2021 2 - Rash TRAMADOL 07/01/2024 5 - Intolerance Comments: Trembling Date Reviewed: 02/11/2025 Reviewed by: Daphnie Ch LPN - Fully Assessed Reason for Visit: Transition Of Care [4074] Cmt: Hospital reach in call Prescriptions as of 02/11/2025 - insulin NPH-insulin regular 70/30 (NOVOLIN 70/30 U-100 INSULIN) 100 unit/mL suspension Inject 17 Units subcutaneously two times a day with meals. With breakfast and dinner - Lancets Test Four times a day. Insulin Dep? Yes uncontrolled dm - blood sugar diagnostic (BLOOD GLUCOSE TEST) test strip Test 4 times daily, Insulin Dep? Yes dm 2 uncontrolled. - ondansetron (ZOFRAN) 8 mg tablet Take 1 tablet by mouth every 8 hours as needed. - sucralfate (CARAFATE) 1 gram tablet Take 1 tablet by mouth four times daily. - Insulin Syringe-Needle U-100 0.5 mL 31 gauge x 5/16 1 Each two times a day. - blood sugar diagnostic test strip Use with blood glucose test 2 times daily, Insulin Dep? Yes - Lancets Use with blood glucose test 2 times daily. Insulin Dep? Yes - alcohol swabs Use with blood glucose test 2 times daily. Insulin Dep? Yes - glucose 4 gram chewable tablet Take 4 tablets by mouth as needed for low blood sugar. - Blood-Glucose Meter,Continuous (FREESTYLE TOLU 3 READER) [facility] Use to check blood sugar at least four (4) times daily. - Blood-Glucose Sensor (FREESTYLE TOLU 3 PLUS SENSOR) benjamin Apply new sensor every fifteen (15) days to upper arm. - metoprolol tartrate, short acting, (LOPRESSOR) 50 mg tablet Take 1.5 tablets by mouth two times a day. - losartan (COZAAR) 100 mg tablet Take 1 tablet by mouth once daily. - pantoprazole DR (PROTONIX) 40 mg tablet Take 1 tablet by mouth two times a day. - PEG 400-propylene glycol (SYSTANE ULTRA) 0.4-0.3 % ophthalmic solution Use 1 Drop in both eyes three times a day. - atorvastatin (LIPITOR) 20 mg tablet Take 1 tablet by mouth once daily. - ELIQUIS 5 mg tab(s) Take 5 mg by mouth two times a day. - amLODIPine (NORVASC) 10 mg tablet Take 10 mg by mouth once daily. - Blood Pressure Test Kit-Large (Mapidy ARM BP MONITOR) 1 Each once daily. Facility-Administered Medications as of 02/11/2025 - NaCl 0.9% iv flush bag - levoFLOXacin iv piggyback 750 mg in D5W 150 mL (LEVAQUIN) - amLODIPine 10 mg tab(s) (NORVASC) - atorvastatin 20 mg tab(s) (LIPITOR) - apixaban 5 mg tab(s) (ELIQUIS) - insulin NPH-insulin regular 70/30 17 Units injection (mixed intermediate and short acting) - losartan 100 mg tab(s) (COZAAR) - metoprolol tartrate (short acting) (LOPRESSOR) tab(s) 75 mg - pantoprazole DR 40 mg tab(s) (PROTONIX) - sucralfate 1 g tab(s) (CARAFATE) - dextrose 15 gram/32 mL 15 g (TRUEPLUS) - glucagon 1 mg injection - dextrose 10% iv bolus - NaCl 0.9% iv flush bag - acetaminophen 650 mg tab(s) (TYLENOL) - guaiFENesin-dextromethorphan 100-10 mg/5 mL 10 mL oral liquid (ROBITUSSIN DM) - NaCl 0.9% iv infusion - insulin lispro injection (rapid acting) (ADMElog) - ondansetron (PF) 4 mg injection (ZOFRAN) - iv contrast (radiology procedure) Problem List As Of Date 02/11/2025 Noted Resolved Mild intermittent asthma without complication [*09/14/2021 Primary hypertension [I10] 09/14/2021 Type 2 diabetes mellitus without complication, *09/14/2021 Gastroesophageal reflux disease without esophag*09/14/2021 History of CVA (cerebrovascular accident) [Z86.*09/14/2021 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 [facility] 02-10-2025 Note SARS-COV-2 (AGENT OF COVID-19) RNA: Not detected INFLUENZA A RNA: Not detected INFLUENZA B RNA: Not detected RESPIRATORY SYNCYTIAL VIRUS (RSV) RNA: Detected [facility] Comment on above: Performed By: #### 9 [id number] ####[facility] LABORATORYCLIA [id number] [place] [address] [place] 02-09-[address] Yusuf updated and no further instructions. Elaina Silverio RN [facility] Work Phone: 02-09-[address] Yusuf updated and no further instructions. Elaina Silverio RN [facility] Care Coordination FOLLOW-UP NOTE Patient identified by name and date of . YES Spoke to Timothy Summary: (Reason for follow-up) Call to Timothy for update on cough/congestions as he reported earlier today in another note that this is not getting better. Patient is finishing her Zpack today but cough is not better and has a lot of congestion. Cough sometime productive with white, creamy, yellowish sputum She is not using anything OTC. Timothy has been giving her warm tea, sometime with honey. She can't drink anything cold as that triggers her to cough more. Denies fever/chills, blood sugars ok, BP ok, Eating ok, last BM today. Denies h/a but states head feels heavy, denies sore throat or mouth. Instructed rest, fluids, Robitussin and Mucinex. He states she drinks lots of water. Instructed to call with any changes, worsening symptoms, lori. fever/chills. He is aware that I will update Dr. Yusuf and call back if any further instructions at this time. Patient verbalized when to seek Medical Attention and an understanding of after- hours phone number and process: Yes Care Coordination Plan: Will update Dr. Yusuf and call back if any further instructions. Maria Isabel Silverio RN February 09, 2025 documented in this encounter [facility] 02-09-2025 Telephone encounter Note Mariel Care Coordination FOLLOW-UP NOTE Patient identified by name and date of . YES Spoke to Timothy Summary: (Reason for follow-up) Call to Timothy for update on cough/congestions as he reported earlier today in another note that this is not getting better. Patient is finishing her Zpack today but cough is not better and has a lot of congestion. Cough sometime productive with white, creamy, yellowish sputum She is not using anything OTC. Timothy has been giving her warm tea, sometime with honey. She can't drink anything cold as that triggers her to cough more. Denies fever/chills, blood sugars ok, BP ok, Eating ok, last BM today. Denies h/a but states head feels heavy, denies sore throat or mouth. Instructed rest, fluids, Robitussin and Mucinex. He states she drinks lots of water. Instructed to call with any changes, worsening symptoms, lori. fever/chills. He is aware that I will update Dr. Yusuf and call back if any further instructions at this time. Patient verbalized when to seek Medical Attention and an understanding of after- hours phone number and process: Yes Care Coordination Plan: Will update Dr. Yusuf and call back if any further instructions. Maria Isabel Silverio RN February 09, 2025 [facility] 02-08-2025 Telephone encounter Note Main . Dental contacted office states pt. Is scheduled for tooth Extraction on 02/15 @ 8:[address] Yusuf made aware. Azra Zuniga LPN [facility] 02-08-2025 Miscellaneous Notes Main [facility] contacted office states pt. Is scheduled for tooth Extraction on 02/15 @ 8:[address] Yusuf made aware. Azra Zuniga LPN documented in this encounter [facility] 02-08-2025 Telephone encounter Note Mariel Care Coordination FOLLOW-UP NOTE Patient identified by name and date of . YES Spoke to patient and son Timothy Summary: (Reason for follow-up) Follow up on patient, was given a Zpack on Saturday. Timothy states patient is feeling better, cough is better. States she had a rough day yesterday but she was that way on Day 3 after her first treatment. States she is better today. Main symptoms yesterday are blood sugar regulation after steroids with treatment but they are better today, she feels weak and tired with all over aches and that seems better today too. Denies fever, new concerns. Patient verbalized when to seek Medical Attention and an understanding of after- hours phone number and process: Yes Care Coordination Plan: No further follow up needed at this time Maria Isabel Silverio RN February 08, 2025 [facility] Work Phone: 02-08-2025 Miscellaneous Notes [facility] Care Coordination FOLLOW-UP NOTE Patient identified by name and date of . YES Spoke to patient and son Timothy Summary: (Reason for follow-up) Follow up on patient, was given a Zpack on Saturday. Timothy states patient is feeling better, cough is better. States she had a rough day yesterday but she was that way on Day 3 after her first treatment. States she is better today. Main symptoms yesterday are blood sugar regulation after steroids with treatment but they are better today, she feels weak and tired with all over aches and that seems better today too. Denies fever, new concerns. Patient verbalized when to seek Medical Attention and an understanding of after- hours phone number and process: Yes Care Coordination Plan: No further follow up needed at this time Maria Isabel Silverio RN February 08, 2025 documented in this encounter [facility] 02-05-2025 Telephone encounter Note CXR completed today with Dr. Yusuf. ATB started. Follow up scheduled for 02/11/2025 post ATB. Aguirer to call back if symptoms change or patient becomes worse. Juanis Schuster RN [facility] 02-05-2025 Miscellaneous Notes CXR completed today with Dr. Yusuf. ATB started. Follow up scheduled for 02/11/2025 post ATB. Aguirre to call back if symptoms change or patient becomes worse. Juanis Schuster, RN Message left for Timothy rayo to call back to schedule an appointment for Telma. Li Allison MA With her issues,likely needs seen Timothy is calling Henok Martinez MD today with concern regarding Patient Question (cough) SonTimothy, reports patient is on chemo and has had cough and congestion that has not been handled by OTC treatments. Currently they are at a chemo appointment today. Advised to speak to oncology about continued cough and Timothy is asking if she can be prescribed something or give a recommendation. Patient has been identified by name and birthdate. Duration of symptoms: 1 weeks Person calling: sonMann Aguirre Call patient at: [phone] (home) [phone] (cell) Was an appointment scheduled: No. She is at chemo today. Closing statement: Danielle Barreto documented in this encounter [facility] 02-05-2025 Telephone encounter Note Spoke with patient's son and reschedule port placement for 02/18. Rachel Bañuelos [facility] 02-05-2025 Miscellaneous Notes Spoke with patient's son and reschedule port placement for 02/18. Rachel Bañuelos Secure chat started for rescheduling port Rachel Bañuelos Timothy notified. Advised ER if she gets worse over the weekend. Encouraged rest and hydration. Scheduled for port placement on Saturday, please assist in moving out one week per secure chat below. Left VM on Timothy's phone that we will need to reschedule. Please call family and assist with rescheduling. Yelitza Hopper LPN Images from the original note were not included. Dr. Yusuf called in Z morgan for pt. [id number] Gemzar/Abraxane Pt has a dental crown that has cracked and pt has been having issues with it for a few weeks. Pt saw a dentist and provided a paper stating the tooth was cracked and needed to be removed. No infection at this time. Dentist asking for clearance. Form given to Dr. Yusuf. Pt has a productive cough x4 days. Producing yellow/clear sputum. C/o SOB with exertion. Denies fever. Dr. Yusuf aware. Pt will have a chest xr after treatment today. Per son in law, patient had israel-red blood with recent bm. Pt is on Eliquis prescribed by Dr. Sarabia for afib. DARREN was advised to contact Dr. Sarabia regarding this. Dr. Yusuf aware. Pt has port insertion on Saturday. Advised to stop Eliquis today per surgeon's office. Dr. Yusuf aware of all issues stated above. States OK for treatment today. documented in this encounter [facility] 02-05-2025 Telephone encounter Note Secure chat started for rescheduling port Rachel Kolbs [facility] 02-05-2025 Telephone encounter Note Timothy notified. Advised ER if she gets worse over the weekend. Encouraged rest and hydration. Scheduled for port placement on Saturday, please assist in moving out one week per secure chat below. Left VM on Timothy's phone that we will need to reschedule. Please call family and assist with rescheduling. Yelitza Hopper LPN [facility] 02-05-2025 Telephone encounter Note Images from the original note were not included. [facility] 02-05-2025 History of Presen t illness Narrative Radiology Service Progress Note PATIENT NAME: Telma Tineo DATE OF SERVICE: February 05, 2025 TIME: 12:02 PM PATIENT IDENTITY VERIFICATION COMPLETED USING TWO (2) IDENTIFIERS: Name and Date of confirmed by patient verbally. FALL SCREENING: Has the patient had 2 falls in the last year or 1 fall with injury or currently using an Ambulatory Assistive Device (Walker, Cane, Wheelchair, Crutches, etc.)? No PATIENT GENDER DATA: Assigned female at . status: : No status: N/A PATIENT RELEVANT IMPLANT DATA REVIEWED: Not Applicable PATIENT PRESENTS WITH AN IMPLANTABLE OR ATTACHED HAT AND CAP DRYING ROOM ATTENDANT: Yes [facility] RADIOLOGY DEPARTMENT: General X-ray: Exam(s) Completed: Chest X-Ray PERIPHERAL IV DATA: Not applicable SIGNED BY: RT Tahmina(Dylan) February 05, 2025 12:02 PM documented in this encounter [facility] 02-05-2025 Note HNO ID: [id number] Author: TREVOR ORDONEZ RT(Dylan) Service: ? Author Type: Technologist Type: Progress Notes Filed: 02/05/2025 12:02 Note Text: Radiology Service Progress Note PATIENT NAME: Telma Tineo DATE OF SERVICE: February 05, 2025 TIME: 12:02 PM PATIENT IDENTITY VERIFICATION COMPLETED USING TWO (2) IDENTIFIERS: Name and Date of confirmed by patient verbally. FALL SCREENING: Has the patient had 2 falls in the last year or 1 fall with injury or currently using an Ambulatory Assistive Device (Walker, Cane, Wheelchair, Crutches, etc.)? No PATIENT GENDER DATA: Assigned female at . status: : No status: N/A PATIENT RELEVANT IMPLANT DATA REVIEWED: Not Applicable PATIENT PRESENTS WITH AN IMPLANTABLE OR ATTACHED HAT AND CAP DRYING ROOM ATTENDANT: Yes [facility] RADIOLOGY DEPARTMENT: General X-ray: Exam(s) Completed: Chest X-Ray PERIPHERAL IV DATA: Not applicable SIGNED BY: RT Tahmina(R) February 05, 2025 12:02 PM [facility] 02-05-2025 Telephone encounter Note SOCIAL WORK FOLLOW UP NOTE: CANCER CENTER Date of service: February 05, 2025 Telma Tineo is being seen for a follow up social work visit. Today's visit includes: Son/Caregiver, Timothy TOPICS ADDRESSED: coping/support - Following chair-side assessment with family this date, pt's son, Timothy, asked to speak with SW privately. SAM provided emotional support this date and discussed with Timothy his adjustment to pt's diagnosis, family dynamics, challenges being pt's sole caregiver, and some spiritual distress son is experiencing. Timothy reports he plans to take advantage of support groups, either through [facility], [facility], or [facility]. He reports he needs an outlet and was appreciate for time to speak with SW this date. SW utilized active listening, empathy, and support. Timothy encouraged to call or stop in and speak with SW anytime and also to utilize support groups and family resources available to him. SAM spent 35 minutes this date with Timothy. PLAN: Communicate pertinent medical/psychosocial information to Cancer Center team, Continue follow up as needed , and Provide emotional support to patient/family F/U APPOINTMENT: PRN Assigned SW listed in Care Team tab: Yes KANDACE Ferguson [facility] 02-05-2025 Miscellaneous Notes SOCIAL WORK FOLLOW UP NOTE: CANCER CENTER Date of service: February 05, 2025 Telma Tineo is being seen for a follow up social work visit. Today's visit includes: Son/Caregiver, Timothy TOPICS ADDRESSED: coping/support - Following chair-side assessment with family this date, pt's son, Timothy, asked to speak with SW privately. SW provided emotional support this date and discussed with Timothy his adjustment to pt's diagnosis, family dynamics, challenges being pt's sole caregiver, and some spiritual distress son is experiencing. Timothy reports he plans to take advantage of support groups, either through [address] [place] [address], [facility], or [facility]. He reports he needs an outlet and was appreciate for time to speak with SW this date. SW utilized active listening, empathy, and support. Timothy encouraged to call or stop in and speak with SW anytime and also to utilize support groups and family resources available to him. SW spent 35 minutes this date with Timothy. PLAN: Communicate pertinent medical/psychosocial information to Cancer Center team, Continue follow up as needed , and Provide emotional support to patient/family F/U APPOINTMENT: PRN Assigned SW listed in Care Team tab: Yes JOSÉ Ferguson-S documented in this encounter [facility] 02-05-[address] Yusuf called in Z morgan for pt. [facility] 02-05-2025 Telephone encounter Note PSYCHOSOCIAL SCREENING ASSESSMENT Date of Service: February 05, 2025 Telma Tineo is a 84 year old female being seen for initial social work assessment. Diagnosis: Malignant neoplasm of head of pancreas New Primary Oncologist: Juan Miguel Yusuf MD Radiation Oncologist: ADRIANNA Goals of Care: Curative intent Today's visit includes: patient, son, and daughter Family History of Cancer: Mother: Pancreatic; Father: Lung, 3 brothers: unknown dx SUPPORT NETWORK: Social Connections: Not on file Marital status: Parent(s): Mother is and Father is Child/Children: Yes. How many? 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 No Financial Distress: No : No FOOD INSECURITY Within the past year, have you worried about how you would buy or obtain food? No LIVING ARRANGEMENTS: Type: House- dependent (friend/family) ranch Resides with: Family Daughter, Telma and SonTimothy Transportation Needs: No Transportation Needs (01/15/2025) PRAPARE - Transportation Lack of Transportation (Medical): No Lack of Transportation (Non-Medical): No FUNCTIONAL STATUS: Cognitive limitations: none Physical limitations: wheelchair when present for treatments and OV's Language barrier: No Hearing Impaired: No Speech Impaired: No Visual Impairments: No Special considerations/accommodations needed: Na HEALTH LITERACY: Do you have difficulty understanding medical instructions or other written materials you receive from you doctor or pharmacy? No Do have difficulty filling out medical forms by yourself? No The following interventions were put into place: NA MEDICATION ADHERENCE: Within the past 2 weeks, have you had difficulty remembering to take your medicine? No Within the past 2 weeks, did you ever miss taking your medications for reasons other than forgetting? No The following interventions were put into place: NA MENTAL HEALTH HISTORY: No History of combat/trauma: No Intimate Partner Violence: Not At Risk (01/15/2025) Safe at Home? Fear of Current or Ex-Partner: Not on file Emotionally Abused: Not on file Physically Abused: Not on file Sexually Abused: Not on file Safe at Home?: Yes Substance Use and Treatment History: denied History of Abuse: No Issues with: Sleep:No Eating:No Exercising: No Stress Management: No ADVANCE DIRECTIVES/LEGAL DOCUMENTS: Living Will: No and provided Living Will information for patient to review Scanned into EPIC: No Health Care Durable Power of Crosstie Inspector: No and provided Living Will information for patient to review Scanned into EPIC: No Guardianship: No Scanned into EPIC:NA Reasons Advanced Directives were not Addressed: NA Advance Care Planning Goals of Care SAM met with pt and her children chair-side this date and discussed Advanced Directives. Pt reports she does not have any forms completed at this time but would be interested in completing them. SW explained [place] decision making and provided pt and her children a copy of AD forms. Pt reports she would like to discuss with her children and complete at home. COPING STATUS: Stress: Not on file Coping Strengths: supportive relationships with immediate family, with friends, and with extended family successful managing past crises hopefulness strong problem-solving skills ability to plan able to follow direction consistently over time able to communicate effectively future oriented and able to identify goals Current affect/mood: appropriate History of Loss: Yes, parents Adjustment to diagnosis: reflecting understanding and responding appropriately BARRIERS/CARE CHALLENGES: None Are barriers/care challenges identified likely to have an impact on the patient's quality of life during treatment? No INTERVENTIONS/REFERRALS TO BE PROVIDED: Monitor patient response to treatment Communicate pertinent medical/psychosocial information to Cancer Center team Provide emotional support to patient/family Referral to community resource Continue follow up as needed Resources and Referrals: Internal: [facility] External: [facility] and Other [facility] CLINICAL IMPRESSION: Telma is a very pleasant 84 year old woman receiving treatment for pancreatic cancer. She is accompanied to treatment today by her son, Timothy, and daughter, Telma Ernst. She has six adult children, 3 of whom live in [place], 3 still living in [place] where pt moved from. Pt reports she was born and raised in [place] and moved to [place], [place] at 19 years old. Pt raised all 6 children on her own and is described by her children as such a strong woman. Pt reports close relationships with all her children and grandchildren. Currently, pt is residing with her son, Timothy, and daughter, Telma. Her son reports he asked pt to move in with them for fear of her falling when home alone. Pt reports she is able to complete most all ADL's still independently. Her primary caregiver at home is Timothy who prepares all her meals, assists her with anything in the home, drives her to and from appointments and treatments, and stays with her throughout the day. He reports he is currently not working in order to care for pt. SW discussed with Timothy how to become a paid caregiver for pt and advised him to call pt's Medicaid onsite case manager and apply through the state. Pt declines any financial concerns, transportation issues, or food scarcity. She reports she is well taken care of by Timothy and has no immediate needs at this time. SW oriented pt and family to SW role and explained all available resources/referrals. SW discussed [facility], [facility], and [facility]. Pt declined any further needs at this time and agreed to reach out to SW if needs arise. Following chair-side assessment with family, pt's son Timothy came to SW office and asked to speak to SW privately. Timothy informed SW of difficult family dynamic between pt and daughter Telma Ernst. He reports pt does not wish to have Sujata as part of POA and is somewhat nervous how to complete forms without her noted on them. SW discussed this with son and apologized if Advanced Directive conversation with daughter in the room may have made things challenging. SW discussed with son that whoever pt chooses to list as HCPOA and secondary agents are the only members who will legally be able to make any decisions on pt's behalf. Timothy seemed relieved by this information. Dynamics between pt and daughter Telma Ernst are described as love/hate. Son denies any concerns for pt safety with daughter, he reports pt would not wish for daughter to be in charge of medical information or decision making. Psychosocial Risk Criteria If positive for one or more of the following risk criteria, follow up every 30 days Age: >70 Mental Health: NA Practical Needs: N/A PLAN: SW to follow pt at upcoming appointments and remain in contact with pt throughout treatment to address any psychosocial concerns if needed. Follow up appointment with SW in: PRN Assigned SW listed in Care Team tab: Yes JOSÉ Ferguson-Naveen [facility] 02-05-2025 Miscellaneous Notes PSYCHOSOCIAL SCREENING ASSESSMENT Date of Service: February 05, 2025 Telma Tineo is a 84 year old female being seen for initial social work assessment. Diagnosis: Malignant neoplasm of head of pancreas New Primary Oncologist: Juan Miguel Yusuf MD Radiation Oncologist: ADRIANNA Goals of Care: Curative intent Today's visit includes: patient, son, and daughter Family History of Cancer: Mother: Pancreatic; Father: Lung, 3 brothers: unknown dx SUPPORT NETWORK: Social Connections: Not on file Marital status: Parent(s): Mother is and Father is Child/Children: Yes. How many? 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 No Financial Distress: No [place]: No FOOD INSECURITY Within the past year, have you worried about how you would buy or obtain food? No LIVING ARRANGEMENTS: Type: House- dependent (friend/family) ranch Resides with: Family DaughterTelma and SonTimothy Transportation Needs: No Transportation Needs (01/15/2025) PRAPARE - Transportation Lack of Transportation (Medical): No Lack of Transportation (Non-Medical): No FUNCTIONAL STATUS: Cognitive limitations: none Physical limitations: wheelchair when present for treatments and OV's Language barrier: No Hearing Impaired: No Speech Impaired: No Visual Impairments: No Special considerations/accommodations needed: Na HEALTH LITERACY: Do you have difficulty understanding medical instructions or other written materials you receive from you doctor or pharmacy? No Do have difficulty filling out medical forms by yourself? No The following interventions were put into place: NA MEDICATION ADHERENCE: Within the past 2 weeks, have you had difficulty remembering to take your medicine? No Within the past 2 weeks, did you ever miss taking your medications for reasons other than forgetting? No The following interventions were put into place: NA MENTAL HEALTH HISTORY: No History of combat/trauma: No Intimate Partner Violence: Not At Risk (01/15/2025) Safe at Home? Fear of Current or Ex-Partner: Not on file Emotionally Abused: Not on file Physically Abused: Not on file Sexually Abused: Not on file Safe at Home?: Yes Substance Use and Treatment History: denied History of Abuse: No Issues with: Sleep:No Eating:No Exercising: No Stress Management: No ADVANCE DIRECTIVES/LEGAL DOCUMENTS: Living Will: No and provided Living Will information for patient to review Scanned into EPIC: No Health Care Durable Power of Crosstie Inspector: No and provided Living Will information for patient to review Scanned into EPIC: No Guardianship: No Scanned into EPIC:NA Reasons Advanced Directives were not Addressed: NA Advance Care Planning Goals of Care SW met with pt and her children chair-side this date and discussed Advanced Directives. Pt reports she does not have any forms completed at this time but would be interested in completing them. SW explained [place] decision making and provided pt and her children a copy of AD forms. Pt reports she would like to discuss with her children and complete at home. COPING STATUS: Stress: Not on file Coping Strengths: supportive relationships with immediate family, with friends, and with extended family successful managing past crises hopefulness strong problem-solving skills ability to plan able to follow direction consistently over time able to communicate effectively future oriented and able to identify goals Current affect/mood: appropriate History of Loss: Yes, parents Adjustment to diagnosis: reflecting understanding and responding appropriately BARRIERS/CARE CHALLENGES: None Are barriers/care challenges identified likely to have an impact on the patient's quality of life during treatment? No INTERVENTIONS/REFERRALS TO BE PROVIDED: Monitor patient response to treatment Communicate pertinent medical/psychosocial information to Cancer Center team Provide emotional support to patient/family Referral to community resource Continue follow up as needed Resources and Referrals: Internal: [facility] External: [facility] and Other [facility] CLINICAL IMPRESSION: Telma is a very pleasant 84 year old woman receiving treatment for pancreatic cancer. She is accompanied to treatment today by her son, Timothy, and daughter, Telma Ernst. She has six adult children, 3 of whom live in [place], 3 still living in [place] where pt moved from. Pt reports she was born and raised in [place] and moved to [place], [place] at 19 years old. Pt raised all 6 children on her own and is described by her children as such a strong woman. Pt reports close relationships with all her children and grandchildren. Currently, pt is residing with her son, Timothy, and daughter, Telma. Her son reports he asked pt to move in with them for fear of her falling when home alone. Pt reports she is able to complete most all ADL's still independently. Her primary caregiver at home is Timothy who prepares all her meals, assists her with anything in the home, drives her to and from appointments and treatments, and stays with her throughout the day. He reports he is currently not working in order to care for pt. SW discussed with Timothy how to become a paid caregiver for pt and advised him to call pt's Medicaid onsite case manager and apply through the state. Pt declines any financial concerns, transportation issues, or food scarcity. She reports she is well taken care of by Timothy and has no immediate needs at this time. SW oriented pt and family to SW role and explained all available resources/referrals. SW discussed [facility], [facility], and [facility]. Pt declined any further needs at this time and agreed to reach out to SW if needs arise. Following chair-side assessment with family, pt's son Timothy came to SW office and asked to speak to SW privately. Timothy informed SW of difficult family dynamic between pt and daughter Telma Ernst. He reports pt does not wish to have Sujata as part of POA and is somewhat nervous how to complete forms without her noted on them. SW discussed this with son and apologized if Advanced Directive conversation with daughter in the room may have made things challenging. SW discussed with son that whoever pt chooses to list as HCPOA and secondary agents are the only members who will legally be able to make any decisions on pt's behalf. Timothy seemed relieved by this information. Dynamics between pt and daughter Telma Ernst are described as love/hate. Son denies any concerns for pt safety with daughter, he reports pt would not wish for daughter to be in charge of medical information or decision making. Psychosocial Risk Criteria If positive for one or more of the following risk criteria, follow up every 30 days Age: >70 Mental Health: NA Practical Needs: N/A PLAN: SW to follow pt at upcoming appointments and remain in contact with pt throughout treatment to address any psychosocial concerns if needed. Follow up appointment with SW in: PRN Assigned SW listed in Care Team tab: Yes KANDACE Ferguson documented in this encounter [facility] 02-05-2025 Telephone encounter Note [id number] Gemzar/Abraxane Pt has a dental crown that has cracked and pt has been having issues with it for a few weeks. Pt saw a dentist and provided a paper stating the tooth was cracked and needed to be removed. No infection at this time. Dentist asking for clearance. Form given to Dr. Yusuf. Pt has a productive cough x4 days. Producing yellow/clear sputum. C/o SOB with exertion. Denies fever. Dr. Yusuf aware. Pt will have a chest xr after treatment today. Per son in law, patient had israel-red blood with recent bm. Pt is on Eliquis prescribed by Dr. Sarabia for afib. DARREN was advised to contact Dr. Sarabia regarding this. Dr. Yusuf aware. Pt has port insertion on Saturday. Advised to stop Eliquis today per surgeon's office. Dr. Yusuf aware of all issues stated above. States OK for treatment today. [facility] 02-05-2025 Telephone encounter Note Message left for Timothy rayo to call back to schedule an appointment for Telma. Li Allison MA [facility] 02-05-2025 Telephone encounter Note With her issues,likely needs seen [facility] 02-05-2025 Telephone encounter Note Timothy is calling Henok Martinez MD today with concern regarding Patient Question (cough) SonTimothy, reports patient is on chemo and has had cough and congestion that has not been handled by OTC treatments. Currently they are at a chemo appointment today. Advised to speak to oncology about continued cough and Timothy is asking if she can be prescribed something or give a recommendation. Patient has been identified by name and birthdate. Duration of symptoms: 1 weeks Person calling: sonMann Aguirre Call patient at: [phone] (home) [phone] (cell) Was an appointment scheduled: No. She is at chemo today. Closing statement: Danielle Trevino Maikol Pss [facility] Work Phone: 02-05-2025 Telephone encounter Note No return phone call yesterday or this am. She has treatment scheduled for today and we can f/u with Timothy/patient at that time. Elaina Silverio RN [facility] Work Phone: 02-05-2025 Miscellaneous Notes No return phone call yesterday or this am. She has treatment scheduled for today and we can f/u with Timothy/patient at that time. Elaina Silverio RN Call for update on patient. Spoke with Timothy, they are at f/u with Dr. Nguyễn. He will call back at a later time. Elaina Silverio RN documented in this encounter [facility] 02-04-2025 Telephone encounter Note Call for update on patient. Spoke with Timothy, they are at f/u with Dr. Nguyễn. He will call back at a later time. Elaina Silverio RN [facility] 02-04-2025 History of Presen t illness Narrative Images from the original note were not included. Ayaz Nguyễn MD Surgical Oncology [address] [facility], [address] [place] [id number] Name: Telma Tineo Age: [age] year old Sex: Telma Tineo : 1940 Referring Provider: No ref. provider found Subjective CHIEF COMPLAINT: Pancreas cancer ONCOLOGIC HISTORY: 01/15/25: Pancreas EUS/FNA: adenocarcinoma HISTORY OF PRESENT ILLNESS: Ms. Tineo is a 84 year old female who presents for discussion of management of recent diagnosis of pancreatic cancer. Briefly, she was recently admitted for obstructive jaundice and workup demonstrated pancreatic mass that was biopsied and pathology results consistent with pancreatic adenocarcinoma. Since her discharge she has started chemotherapy. She reports having no appetite as all food tastes bad. She denies pain and her jaundice has resolved. I personally reviewed Tobacco Allergies Meds Problems Med Hx Surg Hx Fam Hx Objective PHYSICAL EXAM: BP 106/60 Pulse 70 Ht 5' 0 (1.52m) Wt 151 lb (68.5kg) SpO2 97% BMI 29.49 kg/(m^2). Physical Exam Constitutional: General: She is not in acute distress. Appearance: Normal appearance. HENT: Head: Normocephalic and atraumatic. Mouth/Throat: Mouth: Mucous membranes are moist. Eyes: Extraocular Movements: Extraocular movements intact. Cardiovascular: Rate and Rhythm: Normal rate. Pulmonary: Effort: Pulmonary effort is normal. No respiratory distress. Breath sounds: No stridor. Abdominal: General: Abdomen is flat. There is no distension. Palpations: Abdomen is soft. Tenderness: There is no abdominal tenderness. Musculoskeletal: General: Normal range of motion. Cervical back: Normal range of motion. Skin: General: Skin is warm and dry. Coloration: Skin is not jaundiced. Findings: No erythema or rash. Neurological: General: No focal deficit present. Mental Status: She is alert and oriented to person, place, and time. Mental status is at baseline. Psychiatric: Mood and Affect: Mood normal. Behavior: Behavior normal. Thought Content: Thought content normal. Judgment: Judgment normal. DATA: Labs: WBC (k/uL) Date Value 01/28/2025 9.48 Hemoglobin (g/dL) Date Value 01/28/2025 10.6 (L) Platelet Count (k/uL) Date Value 01/28/2025 310 Creatinine (mg/dL) Date Value 01/28/2025 0.69 Sodium (mmol/L) Date Value 01/28/2025 131 (L) Potassium (mmol/L) Date Value 01/28/2025 4.3 Albumin (g/dL) Date Value 01/28/2025 3.7 (L) Calcium, Total (mg/dL) Date Value 01/28/2025 9.4 Alkaline Phosphatase (U/L) Date Value 01/28/2025 148 (H) Bilirubin, Total (mg/dL) Date Value 01/28/2025 2.1 (H) AST (U/L) Date Value 01/28/2025 26 ALT (U/L) Date Value 01/28/2025 28 Images: CT Date of Test: 01/09/25 No radiology report available however on personal review, pancreatic mass appears in the pancreatic head/uncinate with abutment of the portal vein. Images were personally reviewed and interpreted. Pathology Report: FINAL DIAGNOSIS A. Pancreas, mass, biopsy: - Adenocarcinoma (see comment). Assessment/Plan Ms. 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 -Has met with Med Onc for neoadjuvant chemotherapy with [place]/Abraxane. -Recommended restaging after 6 cycles of chemo - will coordinate timing of follow up with Dr. Yusuf -Currently on cycle 2. -Will present at tumor board for review of images. Ayaz Nguyễn MD 211802/04/2025 documented in this encounter [facility] 02-04-2025 Note [facility] 02-03-2025 Note HNO ID: [id number] Author: ESCOBAR MENDOZA LSW Service: ? Author Type: Manifest Clerk Type: Progress Notes Filed: 02/03/2025 15:16 Note Text: Value Based Social Work Progress Note Provider Action / FYI PCP Action none Date of Service: 01/27/2025 Patient identified by name/: Chart Review Referral Source: Referral Patient Outreach: Follow Up Mode of Outreach: none Response Time: n/a Narrative: VBSW reviewed chart. Pt and family have been receiving assistance/resources from [employer]. VBSW will defer to them for care needs. Interventions: Assessment VICKY Barboza February 03, 2025 3:15 PM [facility] 02-03-2025 Telephone encounter Note 1st time treatment report. Spoke with patient's son, Timothy, and explained that the patient has Medicare A and B as well as [facility] Medicaid so she is covered at 100%. Told him to call me periodically to see if any assistance opens up for her pancreatic cancer. Sent Cost Facit to patient's mychart. Diagnosis: Pancreatic Cancer - C25.0...01/19/25 Doctor: Juan Miguel Yusuf MD...[id number] [facility] 02-03-2025 Miscellaneous Notes 1st time treatment report. Spoke with patient's son, Timothy, and explained that the patient has Medicare A and B as well as [facility] Medicaid so she is covered at 100%. Told him to call me periodically to see if any assistance opens up for her pancreatic cancer. Sent [employer] to patient's mychart. Diagnosis: Pancreatic Cancer - C25.0...01/19/25 Doctor: Juan Miguel Yusuf MD...[id number] documented in this encounter [facility] 02-01-2025 Note HNO ID: [id number] Author: HENOK MARTINEZ MD Service: ? Author Type: Physician Type: Progress Notes Filed: 02/01/2025 12:57 Note Text: Patient presents with: Hospital F/U: Having issue with tooth and trying to get into free dental clinic very soon. HPI: Patient presents today for office visit for hospital follow up Has to follow with hematology. With gi. Has plastic stent in bilary tree that needs exchanged in three months. Has appt with endo coming up. Has follow up with general surgery soon and is scheduled also for port placement. They kept her for an additional three days. They held the asa and eliquis. She was to resume asa for two days and then resume eliquis per cardiology. She will not take asa and has not stopped eliquis. Discussed that if gi felt comfortable to resume, I would restart it and call if any signs of further bleeding. Hematology will be following labs. She is also due to see endo. Her sugars have been higher. After much discussion she agreed to increase insulin by 2 units bid and son will send list of sugars next week. No significant chest pain or shortness of breath. Her jaundice has resolved. No itching or abd pain No nausea or vomiting. No black or bloody stools. She is using miralax. Apparently for years has had occasional constipation and uses mag citrate. She would like to take a dose now. Suggested she could try half a bottle but would take miralax regularly. Note was copied and pasted, without alteration from discharge summary. Admitted to [facility] and then transferred to [facility]. Admission Information ADMIT DATE: 01/14/2025 DISCHARGE DATE: 01/23/2025 REASON I WAS IN THE HOSPITAL: Uncontrolled diabetes, melena(GI bleed), pancreatic adenocarcinoma, obstructive jaundice, duodenal ulcer SUMMARY OF WHAT HAPPENED WHILE I WAS IN THE HOSPITAL: The patient is a pleasant 84-year-old female with history of A-fib on Eliquis and type 2 diabetes presented from [place] with pancreatic mass. She underwent EUS, ERCP with biliary stent and had biopsy. The pathology showed pancreatic adenocarcinoma. Her liver function tests were trending. Hepatobiliary recommended neoadjuvant therapy. She had a fever and was started on empiric Cipro per GI recommendation. She began to improve. She tolerated her diet. She was managed by endocrinology for her diabetes. Initially she was resistant to insulin, but then agreeable. She was seen by diabetes education. Patient developed melena and had EGD performed. EGD showed small 4 mm ulcer abutting biliary stent which cannot be repositioned. Unclear if bleeding is from ulcer or sphincterotomy however no active bleeding was seen. GI team recommended continuing to hold Eliquis for additional 2 days but okay with her receiving aspirin during that timeframe. They recommend starting Eliquis after that. Recommend repeat hemoglobin check as outpatient. She will need close outpatientfollow-up. She was asked to monitor for any recurrent bleeding. She has outpatient appointment scheduled with hematology. Prior to discharge discussed risk benefits of reinitiation of antiplatelet/anticoagulation. Patient understanding that there is a risk of recurrent bleeding and to monitor for worsening blood in her stool or black stools. As to avoid NSAIDs. Patient agreeable to return resumption of anticoagulation plan and repeat blood work to ensure stability. She will also follow-up in the next week with her primary care doctor as well as hematology team. Patient asked to stop Eliquis if she develops any recurrent bleeding. Patient also wishes to recheck out to her mechanical systems engineer earlier this week to ensure that he does not want to change her anticoagulation. She understands however that without anticoagulation she would be at increased risk of stroke especially in her history of prior stroke. OTHER PROBLEMS/DIAGNOSIS: Principal Problem: Jaundice Active Problems: Pancreatic mass Type 2 diabetes mellitus with hyperglycemia (HCC) Hyperglycemia Elevated hemoglobin A1c Obstructive jaundice 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) Resolved Problems: * No resolved hospital problems. * MEDICATIONS: Current Outpatient Medications Medication Sig sucralfate (CARAFATE) 1 gram tablet Take 1 tablet by mouth four times daily. metoprolol tartrate, short acting, (LOPRESSOR) 50 mg tablet Take 1.5 tablets by mouth two times a day. losartan (COZAAR) 100 mg tablet Take 1 tablet by mouth once daily. pantoprazole DR (PROTONIX) 40 mg tablet Take 1 tablet by mouth two times a day. (Patient taking differently: Take 40 mg by mouth two times a day. Patient reports once daily) atorvastatin (LIPITOR) 20 mg tablet Take 1 tablet by mouth once daily. amLODIPine (NORVASC) 10 mg tablet Take 10 mg by mouth once daily. Lancets Test Four times a day. Insulin Dep? Yes uncontrolled dm blood sugar diagnostic (BLOOD GLUCOSE TEST) test strip Test 4 times d (more content not included)... [facility] 02-01-2025 History of Presen t illness Narrative Patient presents with: Hospital F/U: Having issue with tooth and trying to get into free dental clinic very soon. HPI: Patient presents today for office visit for hospital follow up Has to follow with hematology. With gi. Has plastic stent in bilary tree that needs exchanged in three months. Has appt with endo coming up. Has follow up with general surgery soon and is scheduled also for port placement. They kept her for an additional three days. They held the asa and eliquis. She was to resume asa for two days and then resume eliquis per cardiology. She will not take asa and has not stopped eliquis. Discussed that if gi felt comfortable to resume, I would restart it and call if any signs of further bleeding. Hematology will be following labs. She is also due to see endo. Her sugars have been higher. After much discussion she agreed to increase insulin by 2 units bid and son will send list of sugars next week. No significant chest pain or shortness of breath. Her jaundice has resolved. No itching or abd pain No nausea or vomiting. No black or bloody stools. She is using miralax. Apparently for years has had occasional constipation and uses mag citrate. She would like to take a dose now. Suggested she could try half a bottle but would take miralax regularly. Note was copied and pasted, without alteration from discharge summary. Admitted to [facility] and then transferred to [facility]. Admission Information ADMIT DATE: 01/14/2025 DISCHARGE DATE: 01/23/2025 REASON I WAS IN THE HOSPITAL: Uncontrolled diabetes, melena(GI bleed), pancreatic adenocarcinoma, obstructive jaundice, duodenal ulcer SUMMARY OF WHAT HAPPENED WHILE I WAS IN THE HOSPITAL: The patient is a pleasant 84-year-old female with history of A-fib on Eliquis and type 2 diabetes presented from [place] with pancreatic mass. She underwent EUS, ERCP with biliary stent and had biopsy. The pathology showed pancreatic adenocarcinoma. Her liver function tests were trending. Hepatobiliary recommended neoadjuvant therapy. She had a fever and was started on empiric Cipro per GI recommendation. She began to improve. She tolerated her diet. She was managed by endocrinology for her diabetes. Initially she was resistant to insulin, but then agreeable. She was seen by diabetes education. Patient developed melena and had EGD performed. EGD showed small 4 mm ulcer abutting biliary stent which cannot be repositioned. Unclear if bleeding is from ulcer or sphincterotomy however no active bleeding was seen. GI team recommended continuing to hold Eliquis for additional 2 days but okay with her receiving aspirin during that timeframe. They recommend starting Eliquis after that. Recommend repeat hemoglobin check as outpatient. She will need close outpatient follow-up. She was asked to monitor for any recurrent bleeding. She has outpatient appointment scheduled with hematology. Prior to discharge discussed risk benefits of reinitiation of antiplatelet/anticoagulation. Patient understanding that there is a risk of recurrent bleeding and to monitor for worsening blood in her stool or black stools. As to avoid NSAIDs. Patient agreeable to return resumption of anticoagulation plan and repeat blood work to ensure stability. She will also follow-up in the next week with her primary care doctor as well as hematology team. Patient asked to stop Eliquis if she develops any recurrent bleeding. Patient also wishes to recheck out to her mechanical systems engineer earlier this week to ensure that he does not want to change her anticoagulation. She understands however that without anticoagulation she would be at increased risk of stroke especially in her history of prior stroke. OTHER PROBLEMS/DIAGNOSIS: Principal Problem: Jaundice Active Problems: Pancreatic mass Type 2 diabetes mellitus with hyperglycemia (HCC) Hyperglycemia Elevated hemoglobin A1c Obstructive jaundice 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) Resolved Problems: * No resolved hospital problems. * MEDICATIONS: Current Outpatient Medications Medication Sig sucralfate (CARAFATE) 1 gram tablet Take 1 tablet by mouth four times daily. metoprolol tartrate, short acting, (LOPRESSOR) 50 mg tablet Take 1.5 tablets by mouth two times a day. losartan (COZAAR) 100 mg tablet Take 1 tablet by mouth once daily. pantoprazole DR (PROTONIX) 40 mg tablet Take 1 tablet by mouth two times a day. (Patient taking differently: Take 40 mg by mouth two times a day. Patient reports once daily) atorvastatin (LIPITOR) 20 mg tablet Take 1 tablet by mouth once daily. amLODIPine (NORVASC) 10 mg tablet Take 10 mg by mouth once daily. Lancets Test Four times a day. Insulin Dep? Yes uncontrolled dm blood sugar diagnostic (BLOOD GLUCOSE TEST) test strip Test 4 times daily, Insulin Dep? Yes dm 2 uncontrolled. ondansetron (ZOFRAN) 8 mg tablet Take 1 tablet by mouth every 8 hours as needed. aspirin, enteric coated (ASPIRIN, ENTERIC COATED) 81 mg EC tablet Take 1 tablet by mouth once daily for 3 doses. (Patient not taking: Reported on 01/25/2025) insulin NPH-insulin regular 70/30 (NOVOLIN 70/30 U-100 INSULIN) 100 unit/mL suspension Inject 15 Units subcutaneously two times a day with meals. With breakfast and dinner Insulin Syringe-Needle U-100 0.5 mL 31 gauge x 5/16 1 Each two times a day. blood sugar diagnostic test strip Use with blood glucose test 2 times daily, Insulin Dep? Yes Lancets Use with blood glucose test 2 times daily. Insulin Dep? Yes alcohol swabs Use with blood glucose test 2 times daily. Insulin Dep? Yes glucose 4 gram chewable tablet Take 4 tablets by mouth as needed for low blood sugar. Blood-Glucose Meter,Continuous (FREESTYLE TOLU 3 READER) [facility] Use to check blood sugar at least four (4) times daily. Blood-Glucose Sensor (FREESTYLE TOLU 3 PLUS SENSOR) benjamin Apply new sensor every fifteen (15) days to upper arm. PEG 400-propylene glycol (SYSTANE ULTRA) 0.4-0.3 % ophthalmic solution Use 1 Drop in both eyes three times a day. ELIQUIS 5 mg tab(s) Take 5 mg by mouth two times a day. (Patient not taking: Reported on 01/26/2025) Blood Pressure Test Kit-Large (Mapidy ARM BP MONITOR) 1 Each once daily. No current facility-administered medications for this visit. ALLERGIES: ALLERGIES Allergen Reactions Penicillins Anaphylaxis Tetracycline Rash Tramadol Intolerance Trembling PAST MEDICAL HISTORY Diagnosis Date Allergies Lundberg's palsy Bronchiectasis (HCC) Gastroesophageal reflux disease without esophagitis History of CVA (cerebrovascular accident) Mild intermittent asthma without complication Primary hypertension Type 2 diabetes mellitus without complication, without long-term current use of insulin (HCC) PAST SURGICAL HISTORY Procedure Laterality Date APPENDECTOMY CATARACT EXTRACTION HX Bilateral COLONOSCOPY SCREENING 10/04/2022 no specimens collected, No further screening colonoscopies required HEMORRHOIDECTOMY X's HYSTERECTOMY HX without bso PAST SURGICAL HISTORY OF ? repair of cystocele RHINOPLASTY N/A SLING OPER STRES INCONTINENCE TONSILLECTOMY & ADENOIDECTOMY <AGE 12 FAMILY HISTORY Problem Relation Age of Onset Pancreatic Cancer Mother Lung Cancer Father No Known Problems Sister No Known Problems Sister No Known Problems Sister No Known Problems Sister No Known Problems Sister Cancer Brother No Known Problems Brother Cancer Brother No Known Problems Brother Cancer Brother Heart disease Son No Ocular Disease No Family History Social History Tobacco Use Smoking status: Former Smokeless tobacco: Never Tobacco comments: Light smoker for 7 years in early adulthood Vaping Use Vaping status: Never Used Substance Use Topics Alcohol use: Not Currently Drug use: Never Reviewed current medications, allergies, past medical history, surgical history, family history and social history today. REVIEW OF SYSTEMS All other reviewed and negative other than HPI. VITALS: BP 102/62 Pulse 79 Temp 37.1 C (98.8 F) Wt 68.5 kg (151 lb) SpO2 99% BMI 29.11 kg/m Last 4 Encounter Wt Readings: Date: Wt: 02/01/2025 68.5 kg (151 lb) 01/28/2025 67.4 kg (148 lb 8 oz) 01/25/2025 68 kg (150 lb) 01/09/2025 69.9 kg (154 lb) PHYSICAL EXAMINATION: General appearance: Well appearing, alert, in no acute distress, well-hydrated, well nourished. Skin: Skin color, texture, turgor normal, no suspicious rashes or lesions Lungs: Lungs clear to auscultation. No wheezing, rhonchi, rales Heart: RRR without murmur, gallop, or rubs. No ectopy Abdomen: Normal abdominal exam, Abdomen soft, non-tender. Bowel sounds normal. No masses, organomegaly Extremities: No deformities, edema, skin discoloration, clubbing or cyanosis. Good capillary refill. ASSESSMENT/PLAN: 1. Pancreatic adenocarcinoma (HCC) - ICD9: 157.9, ICD10: C25.9 (primary diagnosis) - follow with heme onc. Getting port placed. Doing well. 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 Monitor for bleeding. They felt it was due to a small ulcer that had formed near her stent site. Hematology will be following labs. Reinforced need to follow with cardiology as well. Will forward note to [facility]. 3. History of CVA (cerebrovascular accident) - ICD9: V12.54, ICD10: Z86.73 - as above. 4. Type 2 diabetes mellitus with hyperglycemia, with long-term current use of insulin (HCC) - ICD9: 250.00, 790.29, V58.67, ICD10: E11.65, Z79.4 - adjust meds as above. Reinforced seeing endo. - CONSULT TO ENDOCRINOLOGY - INSULIN HUMAN U-100 NPH-REGULR 70-30 MIX 100 UNIT/ML SUBCUTANEOUS SUSP 5. Gastroesophageal reflux disease without esophagitis - ICD9: 530.81, ICD10: K21.9 - stable. 6. Hyperlipidemia, unspecified hyperlipidemia type - ICD9: 272.4, ICD10: E78.5 - will follow. 7. 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 Primary hypertension - ICD9: 401.9, ICD10: I10 - Controlled - Continue current medications - CONSULT TO CARDIOLOGY 9. Atrial fibrillation, unspecified type (HCC) - ICD9: 427.31, ICD10: I48.91 - as above. - CONSULT TO CARDIOLOGY 10. Type 2 diabetes mellitus without complication, without long-term current use of insulin (HCC) - ICD9: 250.00, ICD10: E11.9 - as above. 11. Hyperglycemia - ICD9: 790.29, ICD10: R73.9 - as above. 12. Gastrointestinal hemorrhage, unspecified gastrointestinal hemorrhage type - ICD9: 578.9, ICD10: K92.2 - stable. On meds. Rto in six weeks or prn. Henok Martinez MD documented in this encounter [facility] 01-29-2025 Telephone encounter Note SOCIAL WORK FOLLOW UP NOTE: [facility] Date of service: January 29, 2025 Telma Tineo is being seen for a follow up social work visit. Today's visit includes: daughter, Telma TOPICS ADDRESSED: SAM met with pt's daughterTelma, this date. Daughter brought in FMLA forms and discussed with SAM. Daughter reports she will call SAM and provide work fax number to fax forms to. Daughter informed that Dr. Currie is gone for the day and forms will be completed Saturday, daughter in agreement. SAM also discussed with pt additional dental resources for her mother. Print out of offices by [facility] that accept Medicaid provided to pt's daughter. A few additional resources in [facility] provided as well. SW and pt also discussed how pt is doing with adjusting to diagnosis and treatment. Daughter reports when they found out, the whole family as present and everyone lost it. Daughter describes a very close family, reporting she and her brother Timothy are caring for her mother. She reports they have already acquired a shower stool and walker for pt and have already made household adjustments to make things more accessible as she continues treatment. Pt inquiring about bedside commode, SAM discussed with daughter how to acquire one. SW answered all questions as able and provided emotional support and active listening throughout. No other needs identified at this time. PLAN: Continue follow up as needed F/U APPOINTMENT: PRN Assigned SW listed in Care Team tab: Yes KANDACE Ferguson [facility] 01-29-2025 Miscellaneous Notes SOCIAL WORK FOLLOW UP NOTE: [facility] Date of service: January 29, 2025 Telma Tineo is being seen for a follow up social work visit. Today's visit includes: daughter, Telma TOPICS ADDRESSED: SAM met with pt's daughterTelma, this date. Daughter brought in FMLA forms and discussed with SW. Daughter reports she will call SW and provide work fax number to fax forms to. Daughter informed that Dr. Currie is gone for the day and forms will be completed Saturday, daughter in agreement. SW also discussed with pt additional dental resources for her mother. Print out of offices by [facility] that accept Medicaid provided to pt's daughter. A few additional resources in [facility] provided as well. SW and pt also discussed how pt is doing with adjusting to diagnosis and treatment. Daughter reports when they found out, the whole family as present and everyone lost it. Daughter describes a very close family, reporting she and her brother Timothy are caring for her mother. She reports they have already acquired a shower stool and walker for pt and have already made household adjustments to make things more accessible as she continues treatment. Pt inquiring about bedside commode, SW discussed with daughter how to acquire one. SW answered all questions as able and provided emotional support and active listening throughout. No other needs identified at this time. PLAN: Continue follow up as needed F/U APPOINTMENT: PRN Assigned SAM listed in Care Team tab: Yes KANDACE Ferguson documented in this encounter [facility] 01-29-2025 Telephone encounter Note TC back to Timothy who verbalized understanding that scripts sent as requested. CHAY Tolbert [facility] 01-29-2025 Miscellaneous Notes TC back to Timothy who verbalized understanding that scripts sent as requested. CHAY Tolbert sent ESTELLE 11/04/2024 02/01/2025 Timothy is calling Henok Martinez MD today to request a new glucometer, test, strips, and lancets. Patient has a freestyle tolu, but it is malfunctioning and they will not get a replacement for at least 10 days. Please send to [facility] in [place] Patient has been identified by name and birthdate. Duration of symptoms: Person calling: son: Timothy Call patient at: at home [phone] (home) [phone] (cell) Was an appointment scheduled: No Closing statement: Danielle Barreto documented in this encounter [facility] 01-29-2025 Telephone encounter Note sent [facility] 01-29-2025 Telephone encounter Note [facility] 11/04/2024 02/01/2025 [facility] 01-29-2025 Telephone encounter Note Timothy is calling Henok Martinez MD today to request a new glucometer, test, strips, and lancets. Patient has a freestyle tolu, but it is malfunctioning and they will not get a replacement for at least 10 days. Please send to [facility] in [place] Patient has been identified by name and birthdate. Duration of symptoms: Person calling: son: Timothy Call patient at: at home [phone] (home) [phone] (cell) Was an appointment scheduled: No Closing statement: Danielle Lassiter Pss [facility] Work Phone: 01-28-2025 Telephone encounter Note SOCIAL WORK FOLLOW UP NOTE: [facility] Date of service: January 28, 2025 Telma Tineo is being seen for a follow up social work visit. Today's visit includes: Timothy rayo TOPICS ADDRESSED: SW spoke with pt's sonTimothy, this date. SW referred to pt by [facility] d/t needing dental services however having difficulty finding a provider who will accept pt's Medicaid insurance. SW recommended [facility] clinic to pt's son. He reports pt does have an appointment there but that it's not for a while and they were wondering about getting her in somewhere sooner d/t risk of infection while receiving treatment. SW also recommended [facility]. Son reports they have attempted to schedule with them but they will not take Medicaid. Son reports that he will continue looking and is willing to travel to [place] or [place] with pt if needed. Sw to explore any additional options for pt as well. SW completed a brief psychosocial assessment while on the phone with pt's son. Pt on speaker phone in the background. Pt and son report all is going well, no psychosocial concerns aside from needing a dental provider. Pt is well supported by her son and declines any present needs. PLAN: Continue follow up as needed and Referral to community resource F/U APPOINTMENT: PRN Assigned SW listed in Care Team tab: Yes JOSÉ Ferguson-Naveen [facility] 01-28-2025 Miscellaneous Notes SOCIAL WORK FOLLOW UP NOTE: [facility] Date of service: January 28, 2025 Telma Tineo is being seen for a follow up social work visit. Today's visit includes: Timothy rayo TOPICS ADDRESSED: SW spoke with pt's son, Timothy, this date. SW referred to pt by [facility] d/t needing dental services however having difficulty finding a provider who will accept pt's Medicaid insurance. SW recommended [facility] clinic to pt's son. He reports pt does have an appointment there but that it's not for a while and they were wondering about getting her in somewhere sooner d/t risk of infection while receiving treatment. SW also recommended [facility]. Son reports they have attempted to schedule with them but they will not take Medicaid. Son reports that he will continue looking and is willing to travel to [place] or [place] with pt if needed. Sw to explore any additional options for pt as well. SW completed a brief psychosocial assessment while on the phone with pt's son. Pt on speaker phone in the background. Pt and son report all is going well, no psychosocial concerns aside from needing a dental provider. Pt is well supported by her son and declines any present needs. PLAN: Continue follow up as needed and Referral to community resource F/U APPOINTMENT: PRN Assigned SAM listed in Care Team tab: Yes KANDACE Ferguson documented in this encounter [facility] 01-27-2025 Note HNO ID: [id number] Author: ESCOBAR MENDOZA LSW Service: ? Author Type: Manifest Clerk Type: Progress Notes Filed: 01/27/2025 15:37 Note Text: Value Based Social Work Progress Note Provider Action / FYI PCP Action none Date of Service: 01/27/2025 Patient identified by name/: No Referral Source: Referral Patient Outreach: Initial Mode of Outreach: Phone Call Response Time: Unable to reach (1st Attempt) Left message by: Voicemail VICKY Barboza January 27, 2025 3:36 PM [facility] 01-27-2025 History of Presen t illness Narrative Value Based Social Work Progress Note Provider Action / FYI PCP Action none Date of Service: 01/27/2025 Patient identified by name/: No Referral Source: Referral Patient Outreach: Initial Mode of Outreach: Phone Call Response Time: Unable to reach (1st Attempt) Left message by: Voicemail VICKY Barboza January 27, 2025 3:36 PM documented in this encounter [facility] 01-27-2025 History of Presen t illness Narrative Patient teaching was completed over the phone. Maria Isabel Silverio RN Flux Mixer Pre Chemo Patient identified by name and date of . YES Confirmed date and time for chemotherapy ? YES Other appointments (labs, imaging) discussed? 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 NO Described the infusion room and what to expect. (What to wear, what to bring [iPad, books] amount of time treatment can take, meals and CC options for food) YES Note: na Discussed whether the patient can eat prior to labs and treatment. YES Who is driving you to and from treatment? Son Discussed why it is important to bring someone with you. Yes, recommended first treatment Resources discussed (music therapy, Art therapy, pet therapy, etc.) YES Education on chemotherapy (drug, side effects) discussed and that the patient will be receiving a C1D1 call within 7 days of treatment. YES Other topics discussed, interventions needed: Patient diabetic, discussed pre-med with [place]. They will reach out to PCP regarding management of temporary increase in blood glucose during treatment days. Patient also needs f/u with dentist to possibly replace a crown or have an extraction. They are having difficulty finding a dentist with their insurance. This nurse will update social work assistant on issue and ask for her assistance. Medication reviewed. Patient has stopped taking ASA. Maria Isabel Silverio RN ONCOLOGY PATIENT EDUCATION NOTE TOPIC: Chemotherapy, Medications: Gemzar/Abraxane patient and son called today for education for treatment of Pancreatic Adenocarcinoma Anticipated/Scheduled start date: 01/28/25 READINESS TO LEARN: COGNITIVE ABILITY: Alert and oriented MOTIVATION TO LEARN: Interested FAMILY SUPPORT: High - Very involved in pt care INSTRUCTION PROVIDED TO: Patient and Son INSTRUCTION PROVIDED BY: Nurse Coordinator PATIENT LEARNS BEST BY: Multiple Methods FACTORS AFFECTING LEARNING: None PHYSICAL LIMITATIONS AFFECTING LEARNING: None LEARNING RESPONSE METHOD OF INSTRUCTION: Individual instruction Written instruction/Handouts Verbal instruction PATIENT/FAMILY RESPONSE: Verbalizes understanding of: CHEMOTHERAPY-Regimen, toxicity and side effects FOLLOW UP PLAN: Recommend - Recommend continued instruction and follow up as directed Contact information given. SUPPLEMENTAL MATERIAL: Written material was provided at this visit with the following information: - Chemotherapy education was provided by a pharmacist NO - Side effect management information was provided/discussed including but not limited to: anemia, bowel habit changes, diet, fatigue, hair loss, infection, nausea/vomitting, neutropenia, peripheral neuropathy, thrombocytopenia YES - Provided important phone numbers and contacts during and after hours. YES - Provided information on symptoms that require immediate assistance. YES - Provided Chemotherapy when to call handouts YES - Preventing infection. YES - Treatment schedule and confirmation of appointment times. YES - Available support groups. YES - The importance of contraception during the course of chemotherapy NA - Neutropenic fever protocol discussed with patient, which included the importance of reporting any fever of 100.4F (38.0C) or greater to the healthcare team as noted on the provided wallet card and/or magnet. YES Time Spent: 55 minutes REFERRAL (RECOMMENDATION): Social Work, Carl Holley to call later today and help them find a dentist that will take their insurance. Maria Isabel Silverio RN documented in this encounter [facility] 01-27-2025 Note HNO ID: [id number] Author: MARIA ISABEL SILVERIO RN Service: ? Author Type: Registered Nurse Type: Progress Notes Filed: 01/27/2025 11:43 Note Text: Patient teaching was completed over the phone. Maria Isabel Silverio RN Flux Mixer Pre Chemo Patient identified by name and date of . YES Confirmed date and time for chemotherapy ? YES Other appointments (labs, imaging) discussed? 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 NO Described the infusion room and what to expect. (What to wear, what to bring [iPad, books] amount of time treatment can take, meals and CC options for food) YES Note: na Discussed whether the patient can eat prior to labs and treatment. YES Who is driving you to and from treatment? Son Discussed why it is important to bring someone with you. Yes, recommended first treatment Resources discussed (music therapy, Art therapy, pet therapy, etc.) YES Education on chemotherapy (drug, side effects) discussed and that the patient will be receiving a C1D1 call within 7 days of treatment. YES Other topics discussed, interventions needed: Patient diabetic, discussed pre-med with [place]. They will reach out to PCP regarding management of temporary increase in blood glucose during treatment days. Patient also needs f/u with dentist to possibly replace a crown or have an extraction. They are having difficulty finding a dentist with their insurance. This nurse will update social work assistant on issue and ask for her assistance. Medication reviewed. Patient has stopped taking ASA. Maria Isabel Silverio RN ONCOLOGY PATIENT EDUCATION NOTE TOPIC: Chemotherapy, Medications: Gemzar/Abraxane patient and son called today for education for treatment of Pancreatic Adenocarcinoma Anticipated/Scheduled start date: 01/28/25 READINESS TO LEARN: COGNITIVE ABILITY: Alert and oriented MOTIVATION TO LEARN: Interested FAMILY SUPPORT: High - Very involved in pt care INSTRUCTION PROVIDED TO: Patient and Son INSTRUCTION PROVIDED BY: Nurse Coordinator PATIENT LEARNS BEST BY: Multiple Methods FACTORS AFFECTING LEARNING: None PHYSICAL LIMITATIONS AFFECTING LEARNING: None LEARNING RESPONSE METHOD OF INSTRUCTION: Individual instruction Written instruction/Handouts Verbal instruction PATIENT/FAMILY RESPONSE: Verbalizes understanding of: CHEMOTHERAPY-Regimen, toxicity and side effects FOLLOW UP PLAN: Recommend - Recommend continued instruction and follow up as directed Contact information given. SUPPLEMENTAL MATERIAL: Written material was provided at this visit with the following information: - Chemotherapy education was provided by a pharmacist NO - Side effect management information was provided/discussed including but not limited to: anemia, bowel habit changes, diet, fatigue, hair loss, infection, nausea/vomitting, neutropenia, peripheral neuropathy, thrombocytopenia YES - Provided important phone numbers and contacts during and after hours. YES - Provided information on symptoms that require immediate assistance. YES - Provided Chemotherapy when to call handouts YES - Preventing infection. YES - Treatment schedule and confirmation of appointment times. YES - Available support groups. YES - The importance of contraception during the course of chemotherapy NA - Neutropenic fever protocol discussed with patient, which included the importance of reporting any fever of 100.4F (38.0C) or greater to the healthcare team as noted on the provided wallet card and/or magnet. YES Time Spent: 55 minutes REFERRAL (RECOMMENDATION): Social Work, Carl Holley to call later today and help them find a dentist that will take their insurance. Maria Isabel Silverio RN [facility] 01-26-2025 Note HNO ID: [id number] Author: KAT CRUZ MA Service: ? Author Type: Logistics Operations Director Type: Progress Notes Filed: 01/26/2025 14:56 Note Text: POPULATION HEALTH NAVIGATION OUTREACH Action/FYI Spoke to son and hospital follow up scheduled. Declined other scheduling due to recent pancreatic cancer diagnosis. HEALTH MAINTENANCE DUE: Annual Wellness Visit Diabetic Eye exam Reason for Outreach Community Monitoring/Network Navigator Pools AND Phone Line: CM Pool Care Gaps due: Medicare Annual Wellness Visit Follow-up Appointment Diabetic Eye Exam Patient Contacted: Spoke to patient/parent/or legal guardian Patient identified by name and : Yes Community Monitoring/Network Navigator Pools AND Phone Line actions taken: Patient scheduled / pended orders: Hospital Follow-up: High risk >15% 01/27/2025 in [facility] with HEAD BATCHER [facility] - CHEMO ED 01/28/2025 in [facility] with TREATMENT RM 6 [facility] - CBC/START QMO GEMZAR ABRAXANE/D1/C1/6* 01/28/2025 in [facility]* 02/01/2025 in [facility] with HENOK MARTINEZ [facility] discharge follow up, High risk 02/04/2025 in [facility] 3RD FLOOR with [facility] 02/05/2025 in [facility] with TREATMENT RM 8 [facility] - D8 GEMZAR ABRAXAZANE/LAB EARLY* 02/05/2025 in [facility] MOB with LAB [facility] MOB - CBC* 02/12/2025 in [facility] MOB with LAB [facility] MOB - CBC* 02/12/2025 in [facility] with TREATMENT RM 6 [facility] - D15 GEMZAR ABRAXANE/LAB EARLY* 02/23/2025 in [facility] MOB with LAB [facility] MOB - CBC/CMP* 02/23/2025 in [facility] with BROOK HERNANDEZ/LAB EARLY/CHEMO 02/24* PARAMJIT 02/24/2025 in [facility] with TREATMENT RM 6 [facility] - QMO GEMZAR ABRAXANE/C2-6/LABANDOV 02/23* 03/03/2025 in [facility] with TREATMENT RM 9 [facility] - D8 GEMZAR ABRAXANE/LAB EARLY* 03/03/2025 in [facility] MOB with LAB [facility] MOB - CBC* 03/10/2025 in [facility] MOB with LAB [facility] MOB - CBC* 03/10/2025 in [facility] with TREATMENT RM 15 [facility] - D15 GEMZAR ABRAXAZANE/LAB EARLY* 03/23/2025 in [facility] CBC/CMP* 03/23/2025 in [facility] with HERNANDEZ, [facility] - OV/LAB EARLY/CHEMO 03/25* ABRAMOVICH 03/25/2025 in [facility] with TREATMENT RM 6 [facility] - QMO GEMZAR ABRAXANE/C3-6/LABANDOV 03/23* 03/31/2025 in [facility] MOB with LAB [facility] MOB - CBC* 03/31/2025 in [facility] with TREATMENT RM 8 [facility] - D8 GEMZAR ABRAXANE/LAB EARLY* 04/07/2025 in [facility] MOB with LAB [facility] MOB - CBC* 04/07/2025 in [facility] with TREATMENT RM 12 [facility] - D15 GEMZAR ABRAXAZANE/LAB EARLY* Navigation Signature: Kat Cruz MA January 26, 2025 2:55 PM [facility] 01-26-2025 History of Presen t illness Narrative POPULATION HEALTH NAVIGATION OUTREACH Action/FYI Spoke to son and hospital follow up scheduled. Declined other scheduling due to recent pancreatic cancer diagnosis. HEALTH MAINTENANCE DUE: Annual Wellness Visit Diabetic Eye exam Reason for Outreach Community Monitoring/Network Navigator Pools & Phone Line: [facility] Care Gaps due: Medicare Annual Wellness Visit Follow-up Appointment Diabetic Eye Exam Patient Contacted: Spoke to patient/parent/or legal guardian Patient identified by name and : Yes Community Monitoring/Network Navigator Pools & Phone Line actions taken: Patient scheduled / pended orders: Hospital Follow-up: High risk >15% 01/27/2025 in [facility] with HEAD BATCHER [facility] - CHEMO ED 01/28/2025 in [facility] with TREATMENT RM 6 [facility] - CBC/START QMO GEMZAR ABRAXANE/D1/C1/6* 01/28/2025 in [facility] MOB with LAB [facility] MOB - CBC* 02/01/2025 in [facility] with HENOK MARTINEZ [facility] discharge follow up, High risk 02/04/2025 [facility] with TREATMENT RM 8 [facility] - D8 GEMZAR ABRAXAZANE/LAB EARLY* 02/05/2025 in [facility] MOB with LAB [facility] M[facility] - CBC* 02/12/2025 in [facility] MOB with LAB [facility] M[facility] - CBC* 02/12/2025 in [facility] with TREATMENT RM 6 [facility] - D15 GEMZAR ABRAXANE/LAB EARLY* 02/23/2025 in [facility] MOB with [facility] M[facility] - CBC/CMP* 02/23/2025 in [facility] with BROOK HERNANDEZ - OV/LAB EARLY/CHEMO 02/24* PARAMJIT 02/24/2025 in [facility] with TREATMENT RM 6 [facility] - QMO GEMZAR ABRAXANE/C2-6/LAB&OV 02/23* 03/03/2025 in [facility] with TREATMENT RM 9 [facility] - D8 GEMZAR ABRAXANE/LAB EARLY* 03/03/2025 in [facility] MOB with [facility] MOB - CBC* 03/10/2025 in [facility] MOB with LAB [facility] M[facility] - CBC* 03/10/2025 in [facility] with TREATMENT RM 15 [facility] - D15 GEMZAR ABRAXAZANE/LAB EARLY* 03/23/2025 in [facility] - CBC/CMP* 03/23/2025 in [facility] with GALEN HERNANDEZNA - OV/LAB EARLY/CHEMO 03/25* ABRAMOVICH 03/25/2025 in [facility] GEMZAR ABRAXANE/C3-6/LAB&OV 03/23* 03/31/2025 in [facility] CBC* 03/31/2025 in [facility] with TREATMENT RM 8 [facility] - D8 GEMZAR ABRAXANE/LAB EARLY* 04/07/2025 in [facility] MOB with LAB [facility] MOB - CBC* 04/07/2025 in [facility] RM [facility] GEMZAR ABRAXAZANE/LAB EARLY* Navigation Signature: Kat Cruz MA January 26, 2025 2:55 PM Transition Care Management (TCM) Initial Outreach PCP Update / Actionable Items Social Work Update / Actionable Items Please contact pt Timothy rayo ([phone]), to discuss resources for food and transportation. Thanks! Navigation Team Update / Actionable Items Please contact pt Timothy rayo ([phone]), to schedule OV with PCP for TCM f/u. Readmission Risk-20% High Risk-schedule within 7 days. Thanks! HRTIC TCM Home Visit Referral Source of Stratification: TCM HUB Hospital Admission Status: Discharged Readmission Risk Score: 20 Patient meets program referral criteria: No Patient does not qualify for High Risk TCM Home Visit program due to: Readmission Risk Score does not meet criteria Disposition: Patient does not qualify for HRTIC, will provide TCM outreach follow-up for 30-days Patient Source: In-Network Discharge Initial outreach: TCM discharge report Outreach Summary: Spoke to pt Timothy rayo, who reports he lives with mom. Discussed that pt had a BM today after speaking with PCP office. Timothy went to get Miralax at the store so pt has it moving forward. Pt feeling better, no new or worsening issues. All meds reviewed, pt son very much aware of medications. Pt with no needs at this time. Given Hematology /Oncology contact information as pt will be doing Chemo soon. Waiting for them to get back to him today as they said they would after OV yesterday. Pt interested in seeing PCP for TCM follow up, will have Navigation Team call to assist. Pt would benefit from food and transportation resources, will have PCSW contact Timothy. No further needs at this time, encouraged to contact PCP office with any additional questions or concerns. Patient discharged from [facility] Discharge date: 01/23/25 Admitted for: Jaundice Readmission Risk: 20 Value-Based Contract: ACO Contact: Contact made with patient: Yes Hi, my name is Stuart Dias RN and I am calling from the [facility] on behalf of your Primary Care Provider, Henok Martinez MD. I understand you were recently in the hospital, so I am calling to check in with you to ensure you are feeling well now that you are home. May I ask you a few questions related to your hospital stay and well-being? Yes Spoke to: SonTimothy Validation: Validated the person spoken to is actively involved in the patient's care. The patient was identified by Name and Date of . Symptoms: Are you feeling about the same, better or worse since leaving the hospital? Better Medications: Do you have any questions about taking your medications, including which medications you should be on, or do you need refills on your medications? Yes Discussed the patient's questions and/or concerns. If applicable, the appropriate team/provider updated. Medication Review: Full medication review completed Discharge Instructions: Your Discharge Instructions / After Visit Summary (AVS) are important in guiding you through the recovery process. Do you have any questions related to your discharge instructions? No Home Care: Were you discharged with home care? No Equipment: Do you have all the necessary equipment and supplies needed at your home? Yes The patient verbalizes understanding the use of the equipment and supplies Social: Your mental health is as important to us as your physical health. Would you mind answering a few questions on this topic? Yes On the Storyboard review: Food Insecurity, Transportation, Depression, Housing, and Financial Strain: Complete any SDOHs, listed above, if not addressed in the past 3 months. If all SDOHs, listed above, have been addressed within the last 3 months, confirm responses and update any SDOHs that have changed. Action Taken: Yes The patient would like to speak to a PCSW- Informed patient a PCSW will contact them to discuss further. Complete PCSW/BHSW box, confirmed value-based contract and routed to appropriate pool: Medicare ACM Social Work Pool [[id number]] - Wendy KEVIN MA Follow-Up Appointment: [Appointment / TCM Follow-up within 14 days] I would like to help you schedule a hospital follow-up virtual or telephone visit with your PCP. This is a great way for you to connect with your provider to ensure you have safely transitioned home. If you are agreeable, I will send your request to a biomass power plant superintendent who will contact and assist you with that appointment. This will give you an opportunity to ask any questions or address any concerns you may have with your PCP. Inform the patient that if they have any questions or concerns prior to that appointment, to call their PCP's office right away. Appointment Action: Patient desires an appointment. Complete Navigation Team box and route to appropriate pool for scheduling. Education details: Patient and family educated on issues/questions related to reason for admission, transition of care topics, and follow-up needed upon discharge. Stuart Dias RN January 26, 2025 1:28 PM documented in this encounter [facility] 01-26-2025 Note HNO ID: [id number] Author: STUART DIAS RN Service: ? Author Type: Registered Nurse Type: Progress Notes Filed: 01/26/2025 13:30 Note Text: Transition Care Management (TCM) Initial Outreach PCP Update / Actionable Items Social Work Update / Actionable Items Please contact pt Timothy rayo ([phone]), to discuss resources for food and transportation. Thanks! Navigation Team Update / Actionable Items Please contact pt Timothy rayo ([phone]), to schedule OV with PCP for TCM f/u. Readmission Risk-20% High Risk-schedule within 7 days. Thanks! HRTIC TCM Home Visit Referral Source of Stratification: TCM HUB Hospital Admission Status: Discharged Readmission Risk Score: 20 Patient meets program referral criteria: No Patient does not qualify for High Risk TCM Home Visit program due to: Readmission Risk Score does not meet criteria Disposition: Patient does not qualify for HRTIC, will provide TCM outreach follow-up for 30-days Patient Source: In-Network Discharge Initial outreach: TCM discharge report Outreach Summary: Spoke to pt Timothy rayo, who reports he lives with mom. Discussed that pt had a BM today after speaking with PCP office. Timothy went to get Miralax at the store so pt has it moving forward. Pt feeling better, no new or worsening issues. All meds reviewed, pt son very much aware of medications. Pt with no needs at this time. Given Hematology /Oncology contact information as pt will be doing Chemo soon. Waiting for them to get back to him today as they said they would after OV yesterday. Pt interested in seeing PCP for TCM follow up, will have Navigation Team call to assist. Pt would benefit from food and transportation resources, will have PCSW contact Timothy. No further needs at this time, encouraged to contact PCP office with any additional questions or concerns. Patient discharged from [facility] Discharge date: 01/23/25 Admitted for: Jaundice Readmission Risk: 20 Value-Based Contract: ACO Contact: Contact made with patient: Yes Hi, my name is Stuart Dias RN and I am calling from the [facility] on behalf of your Primary Care Provider, Henok Martinez MD. I understand you were recently in the hospital, so I am calling to check in with you to ensure you are feeling well now that you are home. May I ask you a few questions related to your hospital stay and well-being? Yes Spoke to: Timothy Rayo Validation: Validated the person spoken to is actively involved in the patient's care. The patient was identified by Name and Date of . Symptoms: Are you feeling about the same, better or worse since leaving the hospital? Better Medications: Do you have any questions about taking your medications, including which medications you should be on, or do you need refills on your medications? Yes Discussed the patient's questions and/or concerns. If applicable, the appropriate team/provider updated. Medication Review: Full medication review completed Discharge Instructions: Your Discharge Instructions / After Visit Summary (AVS) are important in guiding you through the recovery process. Do you have any questions related to your discharge instructions? No Home Care: Were you discharged with home care? No Equipment: Do you have all the necessary equipment and supplies needed at your home? Yes The patient verbalizes understanding the use of the equipment and supplies Social: Your mental health is as important to us as your physical health. Would you mind answering a few questions on this topic? Yes On the Storyboard review: Food Insecurity, Transportation, Depression, Housing, and Financial Strain: Complete any SDOHs, listed above, if not addressed in the past 3 months. If all SDOHs, listed above, have been addressed within the last 3 months, confirm responses and update any SDOHs that have changed. Action Taken: Yes The patient would like to speak to a PCSW- Informed patient a PCSW will contact them to discuss further. Complete PCSW/BHSW box, confirmed value-based contract and routed to appropriate pool: Medicare ACM [facility] [[id number]] - Wendy KEVIN MA Follow-Up Appointment: [Appointment / TCM Follow-up within 14 days] I would like to help you schedule a hospital follow-up virtual or telephone visit with your PCP. This is a great way for you to connect with your provider to ensure you have safely transitioned home. If you are agreeable, I will send your request to a biomass power plant superintendent who will contact and assist you with that appointment. This will give you an opportunity to ask any questions or address any concerns you may have with your PCP. Inform the patient that if they have any questions or concerns prior to that appointment, to call their PCP's office right away. Appointment Action: Patient desires an appointment. Complete Navigation Team box and route to appropriate pool for scheduling. E (more content not included)... [facility] 01-26-2025 Telephone encounter Note Detailed message left for Timothy informing him to have Telma try otc miralax for 2 days and to call with worsening symptoms. Advised him to call back with any questions or concerns. Li Allison MA [facility] 01-26-2025 Miscellaneous Notes Detailed message left for Timothy informing him to have Telma try otc miralax for 2 days and to call with worsening symptoms. Advised him to call back with any questions or concerns. Li Allison MA Images from the original note were not included. Henok Martinez MD [facility] Pool4 minutes ago (10:52 AM) Try miralax daily otc first. Call if no results in 2 Days or if anything worsens Spoke with Timothy, patients son. Telma denies any pain. States it's more of a discomfort from being backed up. She feels like she has to have a BM but very little is coming out. Having small BM's every few hrs according to her son. Refers to small pebble like stool. Telma refers to little M&M's. Brown in color. Denies any bloody or black stool. Denies any vomiting. Has not used anything OTC for this as of yet. Advise. Li Allison MA Images from the original note were not included. Henok Martinez MD [facility] [place] Pool2 minutes ago (10:40 AM) Any pain or vomiting. What was last bm? Are they using anything at all right now? Pt's son calls to report that since pt has gotten out of the hospital she has had some constipation. Currently pt feels like she has to have a bm but cannot get anything to come out. Pt is uncomfortable. Son is asking if pt can take something to help with constipation. Pt has magnesium citrate currently and is asking if that is ok to take. Please review and advise. Johnna Medina LPN documented in this encounter [facility] 01-26-2025 Telephone encounter Note Images from the original note were not included. Henok Martinez MD [facility] [place] Pool4 minutes ago (10:52 AM) Try miralax daily otc first. Call if no results in 2 Days or if anything worsens [facility] 01-26-2025 Telephone encounter Note Spoke with Timothy, patients son. Telma denies any pain. States it's more of a discomfort from being backed up. She feels like she has to have a BM but very little is coming out. Having small BM's every few hrs according to her son. Refers to small pebble like stool. Telma refers to little M&M's. Brown in color. Denies any bloody or black stool. Denies any vomiting. Has not used anything OTC for this as of yet. Advise. Li Allison MA [facility] 01-26-2025 Telephone encounter Note Images from the original note were not included. Henok Martinez MD [facility] Pool2 minutes ago (10:40 AM) Any pain or vomiting. What was last bm? Are they using anything at all right now? [facility] 01-26-2025 Telephone encounter Note Pt's son calls to report that since pt has gotten out of the hospital she has had some constipation. Currently pt feels like she has to have a bm but cannot get anything to come out. Pt is uncomfortable. Son is asking if pt can take something to help with constipation. Pt has magnesium citrate currently and is asking if that is ok to take. Please review and advise. Johnna Medina LPN [facility] 01-26-2025 Note Patient Outreach [place] TELMA TINEO ([id number]) 1940 F Date Time Provider Department 01/26/25 STUART DIAS During your visit today, we recorded the following information about you: Stuart Dias, RN 01/26/2025 1:30 PM Signed Transition Care Management (TCM) Initial Outreach PCP Update / Actionable Items Social Work Update / Actionable Items Please contact pt Timothy rayo ([phone]), to discuss resources for food and transportation. Thanks! Navigation Team Update / Actionable Items Please contact pt Timothy rayo ([phone]), to schedule OV with PCP for TCM f/u. Readmission Risk-20% High Risk-schedule within 7 days. Thanks! [facility] Home Visit Referral Source of Stratification: [facility] Hospital Admission Status: Discharged Readmission Risk Score: 20 Patient meets program referral criteria: No Patient does not qualify for High Risk TCM Home Visit program due to: Readmission Risk Score does not meet criteria Disposition: Patient does not qualify for HRTIC, will provide TCM outreach follow-up for 30-days Patient Source: In-Network Discharge Initial outreach: TCM discharge report Outreach Summary: Spoke to pt sonTimothy, who reports he lives with mom. Discussed that pt had a BM today after speaking with PCP office. Timothy went to get Miralax at the store so pt has it moving forward. Pt feeling better, no new or worsening issues. All meds reviewed, pt son very much aware of medications. Pt with no needs at this time. Given Hematology /Oncology contact information as pt will be doing Chemo soon. Waiting for them to get back to him today as they said they would after OV yesterday. Pt interested in seeing PCP for TCM follow up, will have Navigation Team call to assist. Pt would benefit from food and transportation resources, will have PCSW contact Timothy. No further needs at this time, encouraged to contact PCP office with any additional questions or concerns. Patient discharged from [facility] Discharge date: 01/23/25 Admitted for: Jaundice Readmission Risk: 20 Value-Based Contract: ACO Contact: Contact made with patient: Yes Hi, my name is Stuart Dias RN and I am calling from the [facility] on behalf of your Primary Care Provider, Henok Martinez MD. I understand you were recently in the hospital, so I am calling to check in with you to ensure you are feeling well now that you are home. May I ask you a few questions related to your hospital stay and well-being? Yes Spoke to: SonTimothy Validation: Validated the person spoken to is actively involved in the patient's care. The patient was identified by Name and Date of . Symptoms: Are you feeling about the same, better or worse since leaving the hospital? Better Medications: Do you have any questions about taking your medications, including which medications you should be on, or do you need refills on your medications? Yes Discussed the patient's questions and/or concerns. If applicable, the appropriate team/provider updated. Medication Review: Full medication review completed Discharge Instructions: Your Discharge Instructions / After Visit Summary (AVS) are important in guiding you through the recovery process. Do you have any questions related to your discharge instructions? No Home Care: Were you discharged with home care? No Equipment: Do you have all the necessary equipment and supplies needed at your home? Yes The patient verbalizes understanding the use of the equipment and supplies Social: Your mental health is as important to us as your physical health. Would you mind answering a few questions on this topic? Yes On the Storyboard review: Food Insecurity, Transportation, Depression, Housing, and Financial Strain: Complete any SDOHs, listed above, if not addressed in the past 3 months. If all SDOHs, listed above, have been addressed within the last 3 months, confirm responses and update any SDOHs that have changed. Action Taken: Yes The patient would like to speak to a PCSW- Informed patient a PCSW will contact them to discuss further. Complete PCSW/BHSW box, confirmed value-based contract and routed to appropriate pool: Medicare ACM Social Work Pool [[id number]] - Wendy KEVIN MA Follow-Up Appointment: [Appointment / TCM Follow-up within 14 days] I would like to help you schedule a hospital follow-up virtual or telephone visit with your PCP. This is a great way for you to connect with your provider to ensure you have safely transitioned home. If you are agreeable, I will send your request to a biomass power plant superintendent who will contact and assist you with that appointment. This will give you an opportunity to ask any questions or address any concerns you may have with your PCP. Inform the patient that if they have any questions or concerns prior to that appoin (more content not included)... [facility] 01-25-2025 Telephone encounter Note This has been scheduled as directed [facility] 01-25-2025 Miscellaneous Notes This has been scheduled as directed Labs today-DONE Chemo Education-SCHEDULED 4/2 Start Glasscock/Abraxane, straight back to start with CBC (3wks on/1 wk off) CBC with each treatment CBC/CMP/OV with each Q 28day cycle Start treatment this week if possible per Elaina documented in this encounter [facility] 01-25-2025 Telephone encounter Note Labs today-DONE Chemo Education-SCHEDULED 4/2 Start Glasscock/Abraxane, straight back to start with CBC (3wks on/1 wk off) CBC with each treatment CBC/CMP/OV with each Q 28day cycle Start treatment this week if possible per Elaina [facility] 01-25-2025 Telephone encounter Note Met with patient and introduced myself. Patient was given a My Journey binder with chemocare information, office contact information, thermometer, and additional chemotherapy resource booklets. Patient aware this nurse will review on scheduled appointment date. Elaina Silverio RN [facility] Work Phone: 01-25-2025 Miscellaneous Notes Met with patient and introduced myself. Patient was given a My Journey binder with chemocare information, office contact information, thermometer, and additional chemotherapy resource booklets. Patient aware this nurse will review on scheduled appointment date. Elaina Silverio RN documented in this encounter [facility] 01-25-2025 Telephone encounter Note This pt is scheduled. Nasim Fragoso [facility] 01-25-2025 Miscellaneous Notes This pt is scheduled. Nasim Fragoso Dr. Freeman referring her for new diagnosis of pancreas cancer. Next new patient appointment with either me or Dr. Yusuf. Amarilys Niño DO documented in this encounter [facility] 01-25-2025 Note HNO ID: [id number] Author: JUAN MIGUEL YUSUF MD Service: ? Author Type: Physician Type: Progress Notes Filed: 01/25/2025 11:44 Note Text: HISTORY OF PRESENT ILLNESS: Telma Tineo is a 84 year old female presented with painless jaundice, admitted initially at [facility], transferred for further work up at [facility]. Saw hepatobiliary surgery there, noted pancreatic mass. She underwent CBD stenting, and biopsy of mass at head of pancreas. Dx adenocarcinoma. Staging otherwise negative. Per surgery she is not currently resectable, they recommend neoadjuvant chemotherapy, followed by re assessment for surgery. Met with patient and her family today. She is a very active and functional lady, co morbidities noted, but well managed. CLINICAL IMPRESSION: Borderline rnresectable pancreatic adenocarcinoma RECOMMENDATION/PLAN: 1. Plan preop NAC with gemcitabine and abraxane. Discussed also FolFIrinOx, but concerns about tolerability patient prefers gemcitabine abraxane regimen. 2. Info given, plan start within the week. 3. Plan scans after 2 cycles. Written and verbal health teaching given to patient, patient verbalizes understanding and agrees with treatment plan. PAST MEDICAL HISTORY Diagnosis Date Allergies Lundberg's palsy Bronchiectasis (HCC) Gastroesophageal reflux disease without esophagitis History of CVA (cerebrovascular accident) Mild intermittent asthma without complication Primary hypertension Type 2 diabetes mellitus without complication, without long-term current use of insulin (HCC) PAST SURGICAL HISTORY Procedure Laterality Date APPENDECTOMY CATARACT EXTRACTION HX Bilateral COLONOSCOPY SCREENING 10/04/2022 no specimens collected, No further screening colonoscopies required HEMORRHOIDECTOMY X's HYSTERECTOMY HX without bso PAST SURGICAL HISTORY OF ? repair of cystocele RHINOPLASTY N/A SLING OPER STRES INCONTINENCE TONSILLECTOMY AND ADENOIDECTOMY FAMILY HISTORY Problem Relation Age of Onset Pancreatic Cancer Mother Lung Cancer Father No Known Problems Sister No Known Problems Sister No Known Problems Sister No Known Problems Sister No Known Problems Sister Cancer Brother No Known Problems Brother Cancer Brother No Known Problems Brother Cancer Brother Heart disease Son No Ocular Disease No Family History Social History Tobacco Use Smoking status: Former Smokeless tobacco: Never Tobacco comments: Light smoker for 7 years in early adulthood Vaping Use Vaping status: Never Used Substance Use Topics Alcohol use: Not Currently Drug use: Never ALLERGIES: ALLERGIES Allergen Reactions Penicillins Anaphylaxis Tetracycline Rash Tramadol Intolerance Trembling CURRENT OUTPATIENT MEDICATIONS: sucralfate (CARAFATE) 1 gram tablet Take 1 tablet by mouth four times daily. insulin NPH-insulin regular 70/30 (NOVOLIN 70/30 U-100 INSULIN) 100 unit/mL suspension Inject 15 Units subcutaneously two times a day with meals. With breakfast and dinner glucose 4 gram chewable tablet Take 4 tablets by mouth as needed for low blood sugar. metoprolol tartrate, short acting, (LOPRESSOR) 50 mg tablet Take 1.5 tablets by mouth two times a day. (Patient taking differently: Take 50 mg by mouth once daily.) losartan (COZAAR) 100 mg tablet Take 1 tablet by mouth once daily. pantoprazole DR (PROTONIX) 40 mg tablet Take 1 tablet by mouth two times a day. (Patient taking differently: Take 1 tablet by mouth two times a day.) PEG 400-propylene glycol (SYSTANE ULTRA) 0.4-0.3 % ophthalmic solution Use 1 Drop in both eyes three times a day. atorvastatin (LIPITOR) 20 mg tablet Take 1 tablet by mouth once daily. amLODIPine (NORVASC) 10 mg tablet Take 10 mg by mouth once daily. aspirin, enteric coated (ASPIRIN, ENTERIC COATED) 81 mg EC tablet Take 1 tablet by mouth once daily for 3 doses. (Patient not taking: Reported on 01/25/2025) Insulin Syringe-Needle U-100 0.5 mL 31 gauge x 03/12 1 Each two times a day. blood sugar diagnostic test strip Use with blood glucose test 2 times daily, Insulin Dep? Yes Lancets Use with blood glucose test 2 times daily. Insulin Dep? Yes alcohol swabs Use with blood glucose test 2 times daily. Insulin Dep? Yes Blood-Glucose Meter,Continuous (FREESTYLE TOLU 3 READER) [facility] Use to check blood sugar at least four (4) times daily. Blood-Glucose Sensor (FREESTYLE TOLU 3 PLUS SENSOR) benjamin Apply new sensor every fifteen (15) days to upper arm. [Paused] ELIQUIS 5 mg tab(s) Take 5 mg by mouth two times a day. Blood Pressure Test Kit-Large (SURELIFE ARM BP MONITOR) 1 Each once daily. REVIEW OF SYSTEMS: GENERAL: No fever, night sweats, weight loss or malaise. All other reviewed and negative other than HPI. PHYSICAL EXAMINATION: VITAL SIGNS: BP 133/74 Pulse 110 Temp (Src) 99 (Temporal) Ht 5' .039 (1.53m) Wt 150 lb (68.0kg) SpO2 99% BMI 29.26 kg/(m2). GENERAL APPEARANCE: Well (more content not included)... [facility] 01-25-2025 History of Presen t illness Narrative HISTORY OF PRESENT ILLNESS: Telma Tineo is a 84 year old female presented with painless jaundice, admitted initially at [facility], transferred for further work up at [facility]. Saw hepatobiliary surgery there, noted pancreatic mass. She underwent CBD stenting, and biopsy of mass at head of pancreas. Dx adenocarcinoma. Staging otherwise negative. Per surgery she is not currently resectable, they recommend neoadjuvant chemotherapy, followed by re assessment for surgery. Met with patient and her family today. She is a very active and functional lady, co morbidities noted, but well managed. CLINICAL IMPRESSION: Borderline rnresectable pancreatic adenocarcinoma RECOMMENDATION/PLAN: 1. Plan preop NAC with gemcitabine and abraxane. Discussed also FolFIrinOx, but concerns about tolerability patient prefers gemcitabine abraxane regimen. 2. Info given, plan start within the week. 3. Plan scans after 2 cycles. Written and verbal health teaching given to patient, patient verbalizes understanding and agrees with treatment plan. PAST MEDICAL HISTORY Diagnosis Date Allergies Lundberg's palsy Bronchiectasis (HCC) Gastroesophageal reflux disease without esophagitis History of CVA (cerebrovascular accident) Mild intermittent asthma without complication Primary hypertension Type 2 diabetes mellitus without complication, without long-term current use of insulin (HCC) PAST SURGICAL HISTORY Procedure Laterality Date APPENDECTOMY CATARACT EXTRACTION HX Bilateral COLONOSCOPY SCREENING 10/04/2022 no specimens collected, No further screening colonoscopies required HEMORRHOIDECTOMY X's HYSTERECTOMY HX without bso PAST SURGICAL HISTORY OF ? repair of cystocele RHINOPLASTY N/A SLING OPER STRES INCONTINENCE TONSILLECTOMY & ADENOIDECTOMY <AGE 12 FAMILY HISTORY Problem Relation Age of Onset Pancreatic Cancer Mother Lung Cancer Father No Known Problems Sister No Known Problems Sister No Known Problems Sister No Known Problems Sister No Known Problems Sister Cancer Brother No Known Problems Brother Cancer Brother No Known Problems Brother Cancer Brother Heart disease Son No Ocular Disease No Family History Social History Tobacco Use Smoking status: Former Smokeless tobacco: Never Tobacco comments: Light smoker for 7 years in early adulthood Vaping Use Vaping status: Never Used Substance Use Topics Alcohol use: Not Currently Drug use: Never ALLERGIES: ALLERGIES Allergen Reactions Penicillins Anaphylaxis Tetracycline Rash Tramadol Intolerance Trembling CURRENT OUTPATIENT MEDICATIONS: sucralfate (CARAFATE) 1 gram tablet Take 1 tablet by mouth four times daily. insulin NPH-insulin regular 70/30 (NOVOLIN 70/30 U-100 INSULIN) 100 unit/mL suspension Inject 15 Units subcutaneously two times a day with meals. With breakfast and dinner glucose 4 gram chewable tablet Take 4 tablets by mouth as needed for low blood sugar. metoprolol tartrate, short acting, (LOPRESSOR) 50 mg tablet Take 1.5 tablets by mouth two times a day. (Patient taking differently: Take 50 mg by mouth once daily.) losartan (COZAAR) 100 mg tablet Take 1 tablet by mouth once daily. pantoprazole DR (PROTONIX) 40 mg tablet Take 1 tablet by mouth two times a day. (Patient taking differently: Take 1 tablet by mouth two times a day.) PEG 400-propylene glycol (SYSTANE ULTRA) 0.4-0.3 % ophthalmic solution Use 1 Drop in both eyes three times a day. atorvastatin (LIPITOR) 20 mg tablet Take 1 tablet by mouth once daily. amLODIPine (NORVASC) 10 mg tablet Take 10 mg by mouth once daily. aspirin, enteric coated (ASPIRIN, ENTERIC COATED) 81 mg EC tablet Take 1 tablet by mouth once daily for 3 doses. (Patient not taking: Reported on 01/25/2025) Insulin Syringe-Needle U-100 0.5 mL 31 gauge x 03/12 1 Each two times a day. blood sugar diagnostic test strip Use with blood glucose test 2 times daily, Insulin Dep? Yes Lancets Use with blood glucose test 2 times daily. Insulin Dep? Yes alcohol swabs Use with blood glucose test 2 times daily. Insulin Dep? Yes Blood-Glucose Meter,Continuous (FREESTYLE TOLU 3 READER) misc Use to check blood sugar at least four (4) times daily. Blood-Glucose Sensor (FREESTYLE TOLU 3 PLUS SENSOR) benjamin Apply new sensor every fifteen (15) days to upper arm. [Paused] ELIQUIS 5 mg tab(s) Take 5 mg by mouth two times a day. Blood Pressure Test Kit-Large (SURELIFE ARM BP MONITOR) 1 Each once daily. REVIEW OF SYSTEMS: GENERAL: No fever, night sweats, weight loss or malaise. All other reviewed and negative other than HPI. PHYSICAL EXAMINATION: VITAL SIGNS: BP 133/74 Pulse 110 Temp (Src) 99 (Temporal) Ht 5' .039 (1.53m) Wt 150 lb (68.0kg) SpO2 99% BMI 29.26 kg/(m^2). GENERAL APPEARANCE: Well appearing, in no acute distress, alert and oriented x3, well-hydrated, well nourished. I spent a total of 60 minutes on the date of the service which included preparing to see the patient, [id number] patient care, completing clinical documentation, obtaining and/or reviewing separately obtained history, counseling and educating the patient/family/caregiver, ordering medications, tests, or procedures, communicating with other HCPs (not separately reported), independently interpreting results (not separately reported), communicating results to the patient/family/caregiver, and care coordination (not separately reported). Electronically Signed: Juan Miguel Yusuf MD January 25, 2025 8:35 AM documented in this encounter [facility] 01-24-[address] Freeman referring her for new diagnosis of pancreas cancer. Next new patient appointment with either tn or Dr. Yusuf. Amarilys Niño DO [facility] Work Phone: 01-23-2025 Note [facility] 01-22-2025 Note [facility] 01-22-2025 Note [facility] 01-21-2025 Note [facility] 01-21-2025 Telephone encounter Note Spoke w pt, she is hoping to be d/c today, she is schedule at 830am on Thursday 01/[address] Yusuf. Ok per nurse. Nasim Fragoso [facility] 01-21-2025 Miscellaneous Notes Spoke w pt, she is hoping to be d/c today, she is schedule at 830am on Thursday 01/[address] Yusuf. Ok per nurse. Nasim Fragoso Spoke with Dr. Yusuf, he will see this pt. PSS please reach out to pt. To get scheduled. Per Dr. Arroyo You can use multiple slots that are equal to 60 mins for scheduling New pt. Azra Zuniga LPN Received email from Dr Freeman advising below: Patient above was seen at [facility] for obstructive jaundice. 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 She lives in [place]- in fact, she was transferred from [facility]. She is believed to have localized disease, but given her age of 84, patient is unsure whether she would pursue aggressive treatment. I have placed a referral to Hematology/Oncology at [place], and am emailing you here in the hopes of expediting scheduling of her appointment. We did discuss options of neoadjuvant chemotherapy as well as hospice. Of note, patient is also scheduled to see our surgical oncologist Dr. Nguyễn in early January. Please review and advise! Dr Yusuf and Dr Niño were also copied on this email Entered referral for oncology follow-up at [place]. documented in this encounter [facility] 01-21-2025 Telephone encounter Note Spoke with Dr. Yusuf, he will see this pt. PSS please reach out to pt. To get scheduled. Per Dr. Arroyo You can use multiple slots that are equal to 60 mins for scheduling New pt. Azra Zuniga LPN [facility] 01-21-2025 Telephone encounter Note Received email from Dr Freeman advising below: Patient above was seen at [facility] for obstructive jaundice. 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 She lives in [place]- in fact, she was transferred from [facility]. She is believed to have localized disease, but given her age of 84, patient is unsure whether she would pursue aggressive treatment. I have placed a referral to Hematology/Oncology at [place], and am emailing you here in the hopes of expediting scheduling of her appointment. We did discuss options of neoadjuvant chemotherapy as well as hospice. Of note, patient is also scheduled to see our surgical oncologist Dr. Nguyễn in early January. Please review and advise! Dr Yusuf and Dr Niño were also copied on this email [facility] 01-21-2025 Telephone encounter Note Entered referral for oncology follow-up at [place]. [facility] 01-20-2025 Note Jaylyn Corbin [facility] 01-20-2025 Telephone encounter Note Notified Timothy. [facility] 01-20-2025 Miscellaneous Notes Notified Timothy. Rx sent Timothy, son called again and he stated [facility] told him [facility] can no longer bill medicare for diabetic CGM. They told him to have the prescriptions sent to [facility] [place]. Please notify Timothy once sent. Let them know rx sent. If there is anything else we can do please let us know Telma is a patient of Henok Martinez MD today girma Aguirre called and stated his mother is currently in the hospital and the doctor at the hospital is requesting PCP order the Tolu 3 CGM system. Please send to [facility] [place]. Please notify son once completed. Patient has been identified by name and birthdate. Duration of symptoms: N/A Person calling: son: Timothy Call patient at: on cell Was an appointment scheduled: No Closing statement: Results or non-symptom based questions: Thank you for calling [facility], your call will be returned within the next business day. Dahlia Franco Pss documented in this encounter [facility] 01-20-2025 Note [facility] 01-20-2025 Note [facility] 01-20-2025 Telephone encounter Note Rx sent [facility] 01-20-2025 Note [facility] 01-19-2025 Telephone encounter Note girma Aguirre called again and he stated that [facility] told him they can no longer bill medicare for diabetic CGM. They told him to have the prescriptions sent to [facility] [place]. Please notify Timothy once sent. [facility] 01-19-2025 Note [facility] 01-19-2025 Telephone encounter Note Let them know rx sent. If there is anything else we can do please let us know [facility] 01-19-2025 Telephone encounter Note Telma is a patient of Henok Martinez MD today Timothy son called and stated his mother is currently in the hospital and the doctor at the hospital is requesting PCP order the Tolu 3 CGM system. Please send to [facility] [place]. Please notify son once completed. Patient has been identified by name and birthdate. Duration of symptoms: N/A Person calling: son: Timothy Vasquez patient at: on cell Was an appointment scheduled: No Closing statement: Results or non-symptom based questions: Thank you for calling [facility], your call will be returned within the next business day. Dahlia Franco Pss [facility] 01-18-2025 Note [facility] 01-17-2025 Note [facility] 01-16-2025 Note [facility] 01-16-2025 Note [facility] 01-15-2025 Note [facility] 01-15-2025 Note [facility] 01-14-2025 Note [facility] Medical Records Department [address] [place] [id number] Discharge Summary 01/14/25 1707 MR#: [id number] Acct: [id number] Name: TELMA TINEO Rep #: [id number] : 1940 84 From: Jose Wu DO PCP: Dr. Henok Martinez MD Status:DIS IN Location: [facility] SO430-7 Providers Date of Admission: 01/10/25 Date of Discharge: 01/14/25 Primary Care Physician: Dr. Henok Martinez MD Consultations 01/10/25 06:51 Consult: Gastroenterology Routine Consulting Provider: [facility] Reason for Consult: Pancreatic head mass with jaundice and hydropic gallbladder. EMERGENT Consult: No MD Notified: Yes Date Notified: 01/10/25 Time Notified: 06:51 Method of Notification: Text Reason For Visit: YELLOWING OF SKIN, EYE, URINE Diagnosis Discharge Diagnosis (1) Pancreatic mass: Status: Acute Code(s): K86.89 - Other specified diseases of pancreas Plan 1. Pancreatic mass-suspicious for pancreatic cancer, patient is awaiting a bed in [facility] for further care #2 obstructive jaundice secondary to #1-complicates care, management, recovery, and prognosis #3 type 2 diabetes-patient is receiving sliding scale insulin per fingerstick blood sugars #4 essential hypertension-patient is on Cozaar and metoprolol, blood pressure will be monitored #5 chronic moderate protein and caloric malnutrition related to inadequate oral intake as evidenced by p.o. meeting less than 75% of estimated nutritional needs x 4 months and 10% unintentional weight loss x 6 months-diet was advanced 1800-calorie consistent carbohydrate diet, 120 mL of Glucerna shake 3 times daily with med Pass was ordered #6 chronic atrial fibrillation Total clinical time spent by myself addressing the patient's medical issues, reviewing all of her data, and collaborating with patient's care team: 35 minutes Medications at Discharge Home Medications multivitamin 1 tab PO DAILY 06/19/21 pantoprazole 40 mg tablet,delayed release 40 mg PO DAILY gerd #90 tabs 08/28/21 metformin 500 mg tablet 500 mg PO BID 02/15/22 atorvastatin 20 mg tablet 20 mg PO QHS 03/07/23 losartan 100 mg tablet 100 mg PO DAILY 03/07/23 metoprolol tartrate 50 mg tablet 50 mg PO BID 11/21/23 benzocaine 15 mg-menthol 2.6 mg lozenges (Cepacol Sore Throat (benzocaine-menthol)) 1 cee mucous membrane Q2H PRN sore throat #16 ea 02/25/24 apixaban 5 mg tablet 5 mg PO BID #180 tabs 04/28/24 amlodipine 10 mg tablet 10 mg PO DAILY #90 tabs 11/10/24 Hospital Course Operations None Procedures - (ERCP) Summary of Care Provided Minutes Spent on Discharge: 31 Hospital Course: This 84-year-old female was seen in the emergency room at [facility] with complaints of discoloration of her xvqk-nxdxsv-vps yellowing of her eyes. Patient states her urine is dark and stool is reid colored. Workup in the emergency room included labs which showed a bilirubin to be highly elevated at 9.7, patient's liver enzymes were also elevated. CBC was unremarkable, CT of the abdomen and pelvis was obtained which showed evidence of a mass in the pancreatic head. Patient's common bile duct was dilated. It was felt that the patient should be transferred to tertiary facility for further care, [facility] agreed to accept the patient but had no beds at the time and so the patient was admitted to Med[facility]urg 3. She was seen in consultation by gastroenterology who performed an ERCP but was not able to cannulate the common bile duct. On 01/14/2025, patient was seen and examined:alert, oriented x3, no apparent distress, average body habitus and healthy appearing General Appearance: cooperative, well kempt and well developed Orientation / Consciousness: awake, oriented to person, oriented to place and oriented to time HEENT normocephalic, head/scalp atraumatic and moist oral mucous membranes Eyes PERRL, EOMs intact bilaterally and conjunctivae normal Neck supple, no JVD, thyroid normal and no carotid bruits General: trachea midline Resp normal respiratory effort and clear to auscultation bilaterally Auscultation: Negative for rales, rhonchi or wheezes Cardio irregular rate,irregular rhythm, no murmurs, no rub and no gallops GI normal to inspection, nondistended, normoactive bowel sounds, soft to palpation, non-tender and non- distended Extremity no clubbing, cyanosis or edema Skin Skin Narrative: Patient appears jaundiced Neuro oriented x3, CN's II-XII intact bilaterally, moves all extremities, no focal motor deficits and no sensory deficits noted Sensorium / Orientation: awake and alert Speech: speech normal Psych affect normal Patient was discharged to [facility] on 01/15/2025. Medical Records Data Medical Nutrition Assessment Dietitian: Malnutrition (more content not included)... [facility] 01-14-2025 Progress note Note Date/Time January 14, 2025 8:23am [facility] Medical Records Department [address] [place] [address] Progress Note - Hospitalist 01/14/25 0821 MR#: [id number] Acct: [id number] Name: TELMA TINEO Rep #:[id number] : 1940 84 From: Jose Wu DO PCP: Dr. Henok Martinez MD Status:ADM I N Location: [address] Reason for Visit Reason for Visit: Diagnoses Type 2 diabetes mellitus with hyperglycemia (01/10/25) Overweight (01/10/25) Other disorders of bilirubin metabolism (01/10/25) Chronic atrial fibrillation, unspecified (01/10/25) Other specified diseases of pancreas (01/10/25) Unspecified jaundice (01/10/25) Elevation of levels of liver transaminase levels (01/10/25) Personal history of malignant neoplasm of other parts of uterus (01/10/25) Acquired absence of both cervix and uterus (01/10/25) Subjective Subjective Patient was seen and examined today, we have not received approval for her to betransferred to [facility] for further care at this time Objective Data Objective Data Vital Signs: Vital Signs Temp Pulse Resp BP Pulse Ox O2 Del Method 97.6 F L 78 16 152/88 H 98 Room Air 01/14/25 02:39 01/14/25 02:39 01/14/25 02:39 01/14/25 02:39 01/14/25 02:39 01/14/25 02:39 Oxygen Delivery Method Room Air Weight: 68.7 kg Body Mass Index (BMI) 29.7 Intake & Output: Intake and Output for Last 24 Hours 01/12/25 01/13/25 01/14/25 23:59 23:59 23:59 Intake Total 110.25 / 310.25 800 / 800 400 / 400 Balance 110.25 / 310.25 800 / 800 400 / 400 Medical Nutrition Assessment Dietitian: Malnutrition Criteria Met Start: 01/10/25 10:36 Freq: Status: Active Protocol: Document 01/13/25 15:38 SB (Rec: 01/13/25 15:38 SB [id number]) Nutrition Malnutrition Evidence of Yes Malnutrition Exists Malnutrition (severe Chronic ): Evidenced By Suboptimal Energy Intake (Moderate),Weight Loss ( Moderate) Clinical Problem Altered Nutrient-Related Laboratory Values Etiology related to endocrine dysfunction/diabetes Signs/Symptoms as evidenced by A1C 13.2% and glucose 276 mg/dL Status Active Problem Chronic Disease or Condition Related Malnutrition Etiology moderate related to inadequate oral intake Signs/Symptoms as evidenced by PO meeting <75% of estimated nutrition needs x 4 months and 10% unintentional weight loss x 6 months. Status Active Problem Recommendation Dietitian Adjust to consistent carbohydrate diet. Recommendations/ Discontinue 120ml glucerna shake TID with medpass. Changes Order 120ml vanilla glucerna shake TID with meals. Will monitor weight trends. Lab / Micro Data 01/11/25 05:48 01/11/25 05:48 Labs: Laboratory Results - last 24 hr 01/13/25 11:47: POC Glucose 302 H 01/13/25 16:47: POC Glucose 356 H 01/13/25 21:35: POC Glucose 314 H 01/14/25 06:25: POC Glucose 241 H Physical Exam Narrative alert, oriented x3, no apparent distress, average body habitus and healthy appearing General Appearance: cooperative, well kempt and well developed Orientation / Consciousness: awake, oriented to person, oriented to place and oriented to time HEENT normocephalic, head/scalp atraumatic and moist oral mucous membranes Eyes PERRL, EOMs intact bilaterally and conjunctivae normal Neck supple, no JVD, thyroid normal and no carotid bruits General: trachea midline Resp normal respiratory effort and clear to auscultation bilaterally Auscultation: Negative for rales, rhonchi or wheezes Cardio regular rate, regular rhythm, no murmurs, no rub and no gallops GI normal to inspection, nondistended, normoactive bowel sounds, soft to palpation,non-tender and non-distended Extremity no clubbing, cyanosis or edema Skin Skin Narrative: Patient appears jaundiced Neuro oriented x3, CN's II-XII intact bilaterally, moves all extremities, no focal motor deficits and no sensory deficits noted Sensorium / Orientation: awake and alert Speech: speech normal Psych affect normal Assessment & Plan Assessment/Plan (1) Pancreatic mass: PLAN: Plan 1. Pancreatic mass-suspicious for pancreatic cancer, patient is awaiting a bed in [facility] for further care #2 obstructive jaundice secondary to #1-complicates care, management, recovery, and prognosis #3 type 2 diabetes-patient is receiving sliding scale insulin per fingerstick blood sugars #4 essential hypertension-patient is on Cozaar and metoprolol, blood pressure will be monitored #5 chronic moderate protein and caloric malnutrition related to inadequate oral intake as evidenced by p.o. meeting less than 75% of estimated nutritional needsx 4 months and 10% unintentional weight loss x 6 months-diet was advanced 1800-calorie consistent carbohydrate diet, 120 mL of Glucerna shake 3 times daily with med Pass was ordered Total clinical time spent by myself addressing the patient's medical issues, reviewing all of her data, and collaborating with patient's care team: 35 minutes Charges/Coding Visit Charges Inpatient E&M: 24080 Subs Hosp L2 01/14/25 0823 <Electronically signed by Jose Wu DO> Cosigner Signature (if applicable): CC: ~ Signed [facility] Work Phone: 1(971) 767-200803-20-2025 Progress note [facility] Medical Records Department [address] [place] [address] Progress Note - Hospitalist 01/14/25 0821 MR#: [id number] Acct: [id number] Name: TELMA TINEO Rep #:[id number] : 1940 84 From: Jose Wu DO PCP: Dr. Henok Martinez MD Status:ADM I N Location: [place] [address] Reason for Visit Reason for Visit: Diagnoses Type 2 diabetes mellitus with hyperglycemia (01/10/25) Overweight (01/10/25) Other disorders of bilirubin metabolism (01/10/25) Chronic atrial fibrillation, unspecified (01/10/25) Other specified diseases of pancreas (01/10/25) Unspecified jaundice (01/10/25) Elevation of levels of liver transaminase levels (01/10/25) Personal history of malignant neoplasm of other parts of uterus (01/10/25) Acquired absence of both cervix and uterus (01/10/25) Subjective Subjective Patient was seen and examined today, we have not received approval for her to betransferred to [facility] for further care at this time Objective Data Objective Data Vital Signs: Vital Signs Temp Pulse Resp BP Pulse Ox O2 Del Method 97.6 F L 78 16 152/88 H 98 Room Air 01/14/25 02:39 01/14/25 02:39 01/14/25 02:39 01/14/25 02:39 01/14/25 02:39 01/14/25 02:39 Oxygen Delivery Method Room Air Weight: 68.7 kg Body Mass Index (BMI) 29.7 Intake & Output: Intake and Output for Last 24 Hours 01/12/25 01/13/25 01/14/25 23:59 23:59 23:59 Intake Total 110.25 / 310.25 800 / 800 400 / 400 Balance 110.25 / 310.25 800 / 800 400 / 400 Medical Nutrition Assessment Dietitian: Malnutrition Criteria Met Start: 01/10/25 10:36 Freq: Status: Active Protocol: Document 01/13/25 15:38 SB (Rec: 01/13/25 15:38 SB [id number]) Nutrition Malnutrition Evidence of Yes Malnutrition Exists Malnutrition (severe Chronic ): Evidenced By Suboptimal Energy Intake (Moderate),Weight Loss ( Moderate) Clinical Problem Altered Nutrient-Related Laboratory Values Etiology related to endocrine dysfunction/diabetes Signs/Symptoms as evidenced by A1C 13.2% and glucose 276 mg/dL Status Active Problem Chronic Disease or Condition Related Malnutrition Etiology moderate related to inadequate oral intake Signs/Symptoms as evidenced by PO meeting <75% of estimated nutrition needs x 4 months and 10% unintentional weight loss x 6 months. Status Active Problem Recommendation Dietitian Adjust to consistent carbohydrate diet. Recommendations/ Discontinue 120ml glucerna shake TID with medpass. Changes Order 120ml vanilla glucerna shake TID with meals. Will monitor weight trends. Lab / Micro Data 01/11/25 05:48 01/11/25 05:48 Labs: Laboratory Results - last 24 hr 01/13/25 11:47: POC Glucose 302 H 01/13/25 16:47: POC Glucose 356 H 01/13/25 21:35: POC Glucose 314 H 01/14/25 06:25: POC Glucose 241 H Physical Exam Narrative alert, oriented x3, no apparent distress, average body habitus and healthy appearing General Appearance: cooperative, well kempt and well developed Orientation / Consciousness: awake, oriented to person, oriented to place and oriented to time HEENT normocephalic, head/scalp atraumatic and moist oral mucous membranes Eyes PERRL, EOMs intact bilaterally and conjunctivae normal Neck supple, no JVD, thyroid normal and no carotid bruits General: trachea midline Resp normal respiratory effort and clear to auscultation bilaterally Auscultation: Negative for rales, rhonchi or wheezes Cardio regular rate, regular rhythm, no murmurs, no rub and no gallops GI normal to inspection, nondistended, normoactive bowel sounds, soft to palpation,non-tender and non-distended Extremity no clubbing, cyanosis or edema Skin Skin Narrative: Patient appears jaundiced Neuro oriented x3, CN's II-XII intact bilaterally, moves all extremities, no focal motor deficits and no sensory deficits noted Sensorium / Orientation: awake and alert Speech: speech normal Psych affect normal Assessment & Plan Assessment/Plan (1) Pancreatic mass: PLAN: Plan 1. Pancreatic mass-suspicious for pancreatic cancer, patient is awaiting a bed in [facility] for further care #2 obstructive jaundice secondary to #1-complicates care, management, recovery, and prognosis #3 type 2 diabetes-patient is receiving sliding scale insulin per fingerstick blood sugars #4 essential hypertension-patient is on Cozaar and metoprolol, blood pressure will be monitored #5 chronic moderate protein and caloric malnutrition related to inadequate oral intake as evidencedby p.o. meeting less than 75% of estimated nutritional needsx 4 months and 10% unintentional weightloss x 6 months-diet was advanced 1800- calorie consistent carbohydrate diet, 120 mL of Glucerna shake 3 times daily with med [facility] was ordered Total clinical time spent by myself addressing the patient's medical issues, reviewing all of her data, and collaborating with patient's care team: 35 minutes Charges/Coding Visit Charges Inpatient E&M: 98916 Subs Hosp L2 01/14/25 0823 Cosigner Signature (if applicable): CC: ~ Signed [facility]03-19-2025 Progress note Author Jose Segundoessentia healthmaricruz [facility] Note Date/Time January 13, 2025 9:3 8am [facility] Medical Records Department [address] [place] [address] Progress Note - Hospitalist 01/13/25 0936 MR#: [id number] Acct: [id number] Name: TELMA TINEO Rep #:[id number] : 1940 84 From: Jose Wu DO PCP: Dr. 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 Patient has no complaints to this examiner. Objective Data Objective Data Vital Signs: Vital Signs Temp Pulse Resp BP Pulse Ox O2 Del Method 97.5 F L 79 18 140/70 H 99 Room Air 01/13/25 08:55 01/13/25 09:00 01/13/25 08:55 01/13/25 08:55 01/13/25 08:55 01/13/25 08:55 Oxygen Delivery Method Room Air Weight: 67.1 kg Body Mass Index (BMI) 28.8 Intake & Output: Intake and Output for Last 24 Hours 01/11/25 01/12/25 01/13/25 23:59 23:59 23:59 Intake Total 110.25 / 310.25 400 / 400 Balance 110.25 / 310.25 400 / 400 Medical Nutrition Assessment Dietitian: Malnutrition Criteria Met Start: 01/10/25 10:36 Freq: Status: Active Protocol: Document 01/10/25 12:40 SB (Rec: 01/10/25 12:40 SB [id number]) Nutrition Malnutrition Evidence of Yes Malnutrition Exists Malnutrition (severe Chronic ): Evidenced By Suboptimal Energy Intake (Moderate),Weight Loss ( Moderate) Clinical Problem Altered Nutrient-Related Laboratory Values Etiology related to endocrine dysfunction/diabetes Signs/Symptoms as evidenced by A1C 13.2% and glucose 371mg/dL Status Active Problem Chronic Disease or Condition Related Malnutrition Etiology moderate related to inadequate oral intake Signs/Symptoms as evidenced by PO meeting <75% of estimated nutrition needs x 4 months and 10% unintentional weight loss x 6 months. Status Active Problem Recommendation Dietitian Recommend advanced diet as tolerated to 1800 calorie Recommendations/ controlled/consistent carbohydrate diet. Changes As diet is advanced, order 120ml glucerna shake TID with medpass. Will consult MACHINE CUTTER d/t pt reporting difficulty chewing/ swallowing foods. Will monitor weight trends. Lab / Micro Data 01/11/25 05:48 01/11/25 05:48 Labs: Laboratory Results - last 24 hr 01/09/25 19:21: CA 19-9 Antigen 355 H, CA 19-9 Serial Monitor Not Reportable 01/12/25 22:23: POC Glucose 397 H 01/13/25 06:44: POC Glucose 278 H Radiography Diagnostic Testing: Radiology Impression Endo Retro Cholangiopancreatogram 01/12/25 12:20 IMPRESSION: Fluoroscopic services provided for ERCP. Reading Location: [place] [address] Physical Exam Narrative alert, oriented x3, no apparent distress, average body habitus and healthy appearing General Appearance: cooperative, well kempt and well developed Orientation / Consciousness: awake, oriented to person, oriented to place and oriented to time HEENT normocephalic, head/scalp atraumatic and moist oral mucous membranes Eyes PERRL, EOMs intact bilaterally and conjunctivae normal Neck supple, no JVD, thyroid normal and no carotid bruits General: trachea midline Resp normal respiratory effort and clear to auscultation bilaterally Auscultation: Negative for rales, rhonchi or wheezes Cardio regular rate, regular rhythm, no murmurs, no rub and no gallops GI normal to inspection, nondistended, normoactive bowel sounds, soft to palpation,non-tender and non-distended Extremity no clubbing, cyanosis or edema Skin Skin Narrative: Patient appears jaundiced Neuro oriented x3, CN's II-XII intact bilaterally, moves all extremities, no focal motor deficits and no sensory deficits noted Sensorium / Orientation: awake and alert Speech: speech normal Psych affect normal Assessment & Plan Assessment/Plan (1) Pancreatic mass: PLAN: Plan 1. Pancreatic mass-suspicious for pancreatic cancer, patient is awaiting a bed in [facility] for further care, gastroenterology was not able to cannulate the common bile duct on her ERCP #2 obstructive jaundice secondary to #1-complicates care, management, recovery, and prognosis #3 type 2 diabetes-patient is receiving sliding scale insulin per fingerstick blood sugars #4 essential hypertension-patient is on Cozaar and metoprolol, blood pressure will be monitored #5 chronic moderate protein and caloric malnutrition related to inadequate oral intake as evidenced by p.o. meeting less than 75% of estimated nutritional needsx 4 months and 10% unintentional weight loss x 6 months-diet was advanced 1800- calorie consistent carbohydrate diet, 120 mL of Glucerna shake 3 times daily with med Pass was ordered Total clinical time spent by myself addressing the patient's medical issues, reviewing all of her data, and collaborating with patient's care team: 35 minutes Charges/Coding Visit Charges Inpatient E&M: 66139 Subs Hosp L2 01/13/25 0938 <Electronically signed by Jose Wu DO> Cosigner Signature (if applicable): CC: ~ Signed [facility] Work Phone: 1(542) 351-274503-19-2025 Progress note [facility] Medical Records Department [address] [place] [address] Progress Note - Hospitalist 01/13/25 0936 MR#: [id number] Acct: [id number] Name: TELMA TINEO Rep #:[id number] : 1940 84 From: Jose Wu DO PCP: Dr. 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 Patient has no complaints to this examiner. Objective Data Objective Data Vital Signs: Vital Signs Temp Pulse Resp BP Pulse Ox O2 Del Method 97.5 F L 79 18 140/70 H 99 Room Air 01/13/25 08:55 01/13/25 09:00 01/13/25 08:55 01/13/25 08:55 01/13/25 08:55 01/13/25 08:55 Oxygen Delivery Method Room Air Weight: 67.1 kg Body Mass Index (BMI) 28.8 Intake & Output: Intake and Output for Last 24 Hours 01/11/25 01/12/25 01/13/25 23:59 23:59 23:59 Intake Total 110.25 / 310.25 400 / 400 Balance 110.25 / 310.25 400 / 400 Medical Nutrition Assessment Dietitian: Malnutrition Criteria Met Start: 01/10/25 10:36 Freq: Status: Active Protocol: Document 01/10/25 12:40 SB (Rec: 01/10/25 12:40 SB [id number]) Nutrition Malnutrition Evidence of Yes Malnutrition Exists Malnutrition (severe Chronic ): Evidenced By Suboptimal Energy Intake (Moderate),Weight Loss ( Moderate) Clinical Problem Altered Nutrient-Related Laboratory Values Etiology related to endocrine dysfunction/diabetes Signs/Symptoms as evidenced by A1C 13.2% and glucose 371mg/dL Status Active Problem Chronic Disease or Condition Related Malnutrition Etiology moderate related to inadequate oral intake Signs/Symptoms as evidenced by PO meeting <75% of estimated nutrition needs x 4 months and 10% unintentional weight loss x 6 months. Status Active Problem Recommendation Dietitian Recommend advanced diet as tolerated to 1800 calorie Recommendations/ controlled/consistent carbohydrate diet. Changes As diet is advanced, order 120ml glucerna shake TID with medpass. Will consult MACHINE CUTTER d/t pt reporting difficulty chewing/ swallowing foods. Will monitor weight trends. Lab / Micro Data 01/11/25 05:48 01/11/25 05:48 Labs: Laboratory Results - last 24 hr 01/09/25 19:21: CA 19-9 Antigen 355 H, CA 19-9 Serial Monitor Not Reportable 01/12/25 22:23: POC Glucose 397 H 01/13/25 06:44: POC Glucose 278 H Radiography Diagnostic Testing: Radiology Impression Endo Retro Cholangiopancreatogram 01/12/25 12:20 IMPRESSION: Fluoroscopic services provided for ERCP. Reading Location: [facility] Physical Exam Narrative alert, oriented x3, no apparent distress, average body habitus and healthy appearing General Appearance: cooperative, well kempt and well developed Orientation / Consciousness: awake, oriented to person, oriented to place and oriented to time HEENT normocephalic, head/scalp atraumatic and moist oral mucous membranes Eyes PERRL, EOMs intact bilaterally and conjunctivae normal Neck supple, no JVD, thyroid normal and no carotid bruits General: trachea midline Resp normal respiratory effort and clear to auscultation bilaterally Auscultation: Negative for rales, rhonchi or wheezes Cardio regular rate, regular rhythm, no murmurs, no rub and no gallops GI normal to inspection, nondistended, normoactive bowel sounds, soft to palpation,non-tender and non-distended Extremity no clubbing, cyanosis or edema Skin Skin Narrative: Patient appears jaundiced Neuro oriented x3, CN's II-XII intact bilaterally, moves all extremities, no focal motor deficits and no sensory deficits noted Sensorium / Orientation: awake and alert Speech: speech normal Psych affect normal Assessment & Plan Assessment/Plan (1) Pancreatic mass: PLAN: Plan 1. Pancreatic mass-suspicious for pancreatic cancer, patient is awaiting a bed in [facility] for further care, gastroenterology was not able to cannulate the common bile duct on herERCP #2 obstructive jaundice secondary to #1-complicates care, management, recovery, and prognosis #3 type 2 diabetes-patient is receiving sliding scale insulin per fingerstick blood sugars #4 essential hypertension-patient is on Cozaar and metoprolol, blood pressure will be monitored #5 chronic moderate protein and caloric malnutrition related to inadequate oral intake as evidencedby p.o. meeting less than 75% of estimated nutritional needsx 4 months and 10% unintentional weightloss x 6 months-diet was advanced 1800- calorie consistent carbohydrate diet, 120 mL of Glucerna shake 3 times daily with [employer] was ordered Total clinical time spent by myself addressing the patient's medical issues, reviewing all of her data, and collaborating with patient's care team: 35 minutes Charges/Coding Visit Charges Inpatient E&M: 90228 Subs Hosp L2 01/13/25 0938 Cosigner Signature (if applicable): CC: ~ Signed [facility]03-18-2025 Progress note Author Jose Wu [facility] Note Date/Time January 12, 2025 5:0 4pm [facility] Medical Records Department [address] [place] [address] Progress Note - Hospitalist 01/12/25 1700 MR#: [id number] Acct: [id number] Name: TELMA TINEO Rep #:[id number] : 1940 84 From: Jose Wu DO PCP: Dr. 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 I talked to the patient's daughter was in the room at the time my examination, I offered to check [facility] to see if they have any beds available, she consented to this but [facility] told me that they are backed up and the waiting time is about 2 days for ER backlog. Objective Data Objective Data Vital Signs: Vital Signs Temp Pulse Resp BP Pulse Ox O2 Del Method 97.7 F L 82 16 155/98 H 98 Room Air 01/12/25 16:24 01/12/25 16:24 01/12/25 16:24 01/12/25 16:24 01/12/25 16:24 01/12/25 16:24 Oxygen Delivery Method Room Air Weight: 67.2 kg Body Mass Index (BMI) 28.9 Intake & Output: Intake and Output for Last 24 Hours 01/10/25 01/11/25 01/12/25 23:59 23:59 23:59 Intake Total 1220 / 1220 0 / 0 Balance 1220 / 1220 0 / 0 Medical Nutrition Assessment Dietitian: Malnutrition Criteria Met Start: 01/10/25 10:36 Freq: Status: Active Protocol: Document 01/10/25 12:40 SB (Rec: 01/10/25 12:40 SB [id number]) Nutrition Malnutrition Evidence of Yes Malnutrition Exists Malnutrition (severe Chronic ): Evidenced By Suboptimal Energy Intake (Moderate),Weight Loss ( Moderate) Clinical Problem Altered Nutrient-Related Laboratory Values Etiology related to endocrine dysfunction/diabetes Signs/Symptoms as evidenced by A1C 13.2% and glucose 371mg/dL Status Active Problem Chronic Disease or Condition Related Malnutrition Etiology moderate related to inadequate oral intake Signs/Symptoms as evidenced by PO meeting <75% of estimated nutrition needs x 4 months and 10% unintentional weight loss x 6 months. Status Active Problem Recommendation Dietitian Recommend advanced diet as tolerated to 1800 calorie Recommendations/ controlled/consistent carbohydrate diet. Changes As diet is advanced, order 120ml glucerna shake TID with medpass. Will consult MACHINE CUTTER d/t pt reporting difficulty chewing/ swallowing foods. Will monitor weight trends. Lab / Micro Data 01/11/25 05:48 01/11/25 05:48 Labs: Laboratory Results - last 24 hr 01/09/25 19:21: CA 19-9 Antigen 355 H, CA 19-9 Serial Monitor Not Reportable 01/11/25 21:46: POC Glucose 258 H 01/12/25 06:14: POC Glucose 214 H Radiography Diagnostic Testing: Radiology Impression Endo Retro Cholangiopancreatogram 01/12/25 12:20 IMPRESSION: Fluoroscopic services provided for ERCP. Reading Location: [place] [address] Physical Exam Narrative alert, oriented x3, no apparent distress, average body habitus and healthy appearing General Appearance: cooperative, well kempt and well developed Orientation / Consciousness: awake, oriented to person, oriented to place and oriented to time HEENT normocephalic, head/scalp atraumatic and moist oral mucous membranes Eyes PERRL, EOMs intact bilaterally and conjunctivae normal Neck supple, no JVD, thyroid normal and no carotid bruits General: trachea midline Resp normal respiratory effort and clear to auscultation bilaterally Auscultation: Negative for rales, rhonchi or wheezes Cardio regular rate, regular rhythm, no murmurs, no rub and no gallops GI normal to inspection, nondistended, normoactive bowel sounds, soft to palpation,non-tender and non-distended Extremity no clubbing, cyanosis or edema Skin Skin Narrative: Patient appears jaundiced Neuro oriented x3, CN's II-XII intact bilaterally, moves all extremities, no focal motor deficits and no sensory deficits noted Sensorium / Orientation: awake and alert Speech: speech normal Psych affect normal Assessment & Plan Assessment/Plan (1) Pancreatic mass: PLAN: Plan 1. Pancreatic mass-suspicious for pancreatic cancer, patient is awaiting a bed in [facility] for further care #2 obstructive jaundice secondary to #1-complicates care, management, recovery, and prognosis #3 type 2 diabetes-patient is receiving sliding scale insulin per fingerstick blood sugars #4 essential hypertension-patient is on Cozaar and metoprolol, blood pressure will be monitored #5 chronic moderate protein and caloric malnutrition related to inadequate oral intake as evidenced by p.o. meeting less than 75% of estimated nutritional needsx 4 months and 10% unintentional weight loss x 6 months-diet was advanced 1800- calorie consistent carbohydrate diet, 120 mL of Glucerna shake 3 times daily with med Pass was ordered Total clinical time spent by myself addressing the patient's medical issues, reviewing all of her data, and collaborating with patient's care team: 35 minutes Charges/Coding Visit Charges Inpatient E&M: 05700 Subs Hosp L2 01/12/25 1704 <Electronically signed by Jose Wu DO> Cosigner Signature (if applicable): CC: ~ Signed [facility] Work Phone: 1(323) 293-395903-18-2025 Progress note [facility] Medical Records Department [address] [place] [address] Progress Note - Hospitalist 01/12/25 1700 MR#: [id number] Acct: [id number] Name: TELMA TINEO Rep #:[id number] : 1940 84 From: Jose Wu DO PCP: Dr. Henok Martinez MD Status:ADM I N Location: [place] [address] Reason for Visit Reason for Visit: Diagnoses Type 2 diabetes mellitus with hyperglycemia (01/10/25) Overweight (01/10/25) Other disorders of bilirubin metabolism (01/10/25) Chronic atrial fibrillation, unspecified (01/10/25) Other specified diseases of pancreas (01/10/25) Unspecified jaundice (01/10/25) Elevation of levels of liver transaminase levels (01/10/25) Personal history of malignant neoplasm of other parts of uterus (01/10/25) Acquired absence of both cervix and uterus (01/10/25) Subjective Subjective Patient was seen and examined today, she underwent an ERCP but the business travel consultant was unable tocannulate the common bile duct. I talked to the patient's daughter was in the room at the time my examination, I offered to check [facility] to see if they have any beds available, she consented to this but [facility] told me that they are backed up and the waiting time is about 2days for ER backlog. Objective Data Objective Data Vital Signs: Vital Signs Temp Pulse Resp BP Pulse Ox O2 Del Method 97.7 F L 82 16 155/98 H 98 Room Air 01/12/25 16:24 01/12/25 16:24 01/12/25 16:24 01/12/25 16:24 01/12/25 16:24 01/12/25 16:24 Oxygen Delivery Method Room Air Weight: 67.2 kg Body Mass Index (BMI) 28.9 Intake & Output: Intake and Output for Last 24 Hours 01/10/25 01/11/25 01/12/25 23:59 23:59 23:59 Intake Total 1220 / 1220 0 / 0 Balance 1220 / 1220 0 / 0 Medical Nutrition Assessment Dietitian: Malnutrition Criteria Met Start: 01/10/25 10:36 Freq: Status: Active Protocol: Document 01/10/25 12:40 SB (Rec: 01/10/25 12:40 SB [id number]) Nutrition Malnutrition Evidence of Yes Malnutrition Exists Malnutrition (severe Chronic ): Evidenced By Suboptimal Energy Intake (Moderate),Weight Loss ( Moderate) Clinical Problem Altered Nutrient-Related Laboratory Values Etiology related to endocrine dysfunction/diabetes Signs/Symptoms as evidenced by A1C 13.2% and glucose 371mg/dL Status Active Problem Chronic Disease or Condition Related Malnutrition Etiology moderate related to inadequate oral intake Signs/Symptoms as evidenced by PO meeting <75% of estimated nutrition needs x 4 months and 10% unintentional weight loss x 6 months. Status Active Problem Recommendation Dietitian Recommend advanced diet as tolerated to 1800 calorie Recommendations/ controlled/consistent carbohydrate diet. Changes As diet is advanced, order 120ml glucerna shake TID with medpass. Will consult MACHINE CUTTER d/t pt reporting difficulty chewing/ swallowing foods. Will monitor weight trends. Lab / Micro Data 01/11/25 05:48 01/11/25 05:48 Labs: Laboratory Results - last 24 hr 01/09/25 19:21: CA 19-9 Antigen 355 H, CA 19-9 Serial Monitor Not Reportable 01/11/25 21:46: POC Glucose 258 H 01/12/25 06:14: POC Glucose 214 H Radiography Diagnostic Testing: Radiology Impression Endo Retro Cholangiopancreatogram 01/12/25 12:20 IMPRESSION: Fluoroscopic services provided for ERCP. Reading Location: [place] [address] Physical Exam Narrative alert, oriented x3, no apparent distress, average body habitus and healthy appearing General Appearance: cooperative, well kempt and well developed Orientation / Consciousness: awake, oriented to person, oriented to place and oriented to time HEENT normocephalic, head/scalp atraumatic and moist oral mucous membranes Eyes PERRL, EOMs intact bilaterally and conjunctivae normal Neck supple, no JVD, thyroid normal and no carotid bruits General: trachea midline Resp normal respiratory effort and clear to auscultation bilaterally Auscultation: Negative for rales, rhonchi or wheezes Cardio regular rate, regular rhythm, no murmurs, no rub and no gallops GI normal to inspection, nondistended, normoactive bowel sounds, soft to palpation,non-tender and non-distended Extremity no clubbing, cyanosis or edema Skin Skin Narrative: Patient appears jaundiced Neuro oriented x3, CN's II-XII intact bilaterally, moves all extremities, no focal motor deficits and no sensory deficits noted Sensorium / Orientation: awake and alert Speech: speech normal Psych affect normal Assessment & Plan Assessment/Plan (1) Pancreatic mass: PLAN: Plan 1. Pancreatic mass-suspicious for pancreatic cancer, patient is awaiting a bed in [facility] for further care #2 obstructive jaundice secondary to #1-complicates care, management, recovery, and prognosis #3 type 2 diabetes-patient is receiving sliding scale insulin per fingerstick blood sugars #4 essential hypertension-patient is on Cozaar and metoprolol, blood pressure will be monitored #5 chronic moderate protein and caloric malnutrition related to inadequate oral intake as evidencedby p.o. meeting less than 75% of estimated nutritional needsx 4 months and 10% unintentional weightloss x 6 months-diet was advanced 1800- calorie consistent carbohydrate diet, 120 mL of Glucerna shake 3 times daily with med Pass was ordered Total clinical time spent by myself addressing the patient's medical issues, reviewing all of her data, and collaborating with patient's care team: 35 minutes Charges/Coding Visit Charges Inpatient E&M: 40156 Subs Hosp L2 01/12/25 1704 Cosigner Signature (if applicable): CC: ~ Signed [facility]03-18-2025 Consult note Author José Escobar [facility] Note Date/Time January 12, 2025 2:0 8pm [facility] Medical Records Department [address] [place] [address] Anesthesia Postop Eval II 01/12/25 1408 MR#: [id number] Acct: [id number] Name: TELMA TINEO Rep #:[id number] : 1940 84 From: José Escobar MD PCP: Dr. Henok Martinez MD Status:ADM I N Y Race: H Location: [address] Anesthesia Postop Eval I Sum Postop Eval Completion status Anesthesia document: Postop Eval 1 completed: Yes Anesthesia Postop Eval I Summary Anesthesia Postop Eval I Summary: Anesthesia Postop Eval I: Assessment Summary Airway patent Yes 01/12/25 13:48 ELECTRIC ORGAN INSPECTOR AND REPAIRER.TNES Spontaneous unlabored Yes 01/12/25 13:48 ELECTRIC [employer]GAN INSPECTOR AND REPAIRER.TNES respirations Mental status nausea No 01/12/25 13:48 ELECTRIC [employer]GAN INSPECTOR AND REPAIRER.TNES Vomiting No 01/12/25 13:48 ELECTRIC [employer]GAN INSPECTOR AND REPAIRER.TNES Anesthesia Postop Eval I: Fluid Summary Crystalloid volume administer 1,000 01/12/25 13:48 ELECTRIC [employer]GAN INSPECTOR AND REPAIRER.TNES (ml) Colloids volume administered ( ml) Blood Product volume administered (ml) Total IV fluid infused 1,000 01/12/25 13:48 ELECTRIC ORGAN INSPECTOR AND REPAIRER.TNES Anesthesia Postop Eval I: Summary Notes Anesthesia Complication No 01/12/25 13:48 ELECTRIC ORGAN INSPECTOR AND REPAIRER.TNES Anesthesia Complication Comment: Post-operative progress note Anesthesia: Postop Eval II Evaluation Mental status: Awake Pain Level: 0 nausea: No Vomiting: No Complications Anesthesia Complication: No 01/12/25 1408 <Electronically signed by José Escobar MD> Date _ José Escobar MD Cosigner Signature: Date CC: ~ Signed [facility] Work Phone: 1(924) 636-237403-18-2025 Consult note Author Jr Kamara [facility] Note Date/Time January 12, 2025 1:4 8pm [facility] Medical Records Department [address] [place] [address] Anesthesia Postop Eval I 01/12/25 1348 MR#: [id number] Acct: [id number] Name: TELMA TINEOCA Rep #:[id number] : 1940 84 From: Jr RODAS PCP: Dr. Henok Martinez MD Status:ADM I N Y Race: H Location: [place] [address] Anesthesia: Postop Eval I Current Vital Signs Temperature: 97.7 F Pulse Rate: 81 Blood Pressure: 143/77 Respiratory Rate: 16 Pulse Ox: 96 Assessment Airway patent: Yes Spontaneous unlabored respirations: Yes nausea: No Vomiting: No Anesthesia Complication: No Fluid Hydration Crystalloid volume administer (ml): 1,000 Total IV fluid infused: 1,000 Progress Note Anesthesia document: Postop Eval 1 completed: Yes 01/12/251347 <Electronically signed by Jr Kamara CRNA> Date _ Jr Kamara CRNA Cosigner Signature: Date CC: ~ Signed [facility] Work Phone: 1(523) 318-978603-18-2025 Radiology Diagnostic study note [facility] Imaging Services [address] [place] [id number] ERCP Biliary/Pancreas MR#: [id number] Acct: [id number] Name: TELMA TINEO Rep #: [id number] : 1940 F 84 From: Maynor Rosario MD PCP: Dr. Henok Martinez MD Status: ADM I N Study:ERCP Biliary/Pancreas Date of Exam: 01/12/25 Exam# [id number] Ordering Dr: Dylan Brown DO PROCEDURE: ERCP BILIARY/PANCREAS 01/12/2025 REASON FOR EXAM: PAIN. ERCP WITH SPY? TECHNIQUE: Fluoroscopic services provided for ERCP. Fluoroscopic time: 110.7 seconds 22.5 mGy 3 images were submitted. COMPARISON: None. FINDINGS: The business travel consultant performed the ERCP. Fluoroscopic imaging provided. RAD/ERCP Biliary/Pancreas IMPRESSION: Fluoroscopic services provided for ERCP. Reading Location: [place] [address] CC: Dr. Henok Martinez MD; Mohit Brown DO ~ Supervisor Billposting: Signed [facility]03-18-2025 Consult note [facility] Medical Records Department [address] [place] [address] Anesthesia Postop Eval II 01/12/25 1408 MR#: [id number] Acct: [id number] Name: TELMA TINEO Rep #:[id number] : 1940 84 From: José Escobar MD PCP: Dr. Henok Martinez MD Status:ADM I N Y Race: H Location: [place] [address] Anesthesia Postop Eval I Sum Postop Eval Completion status Anesthesia document: Postop Eval 1 completed: Yes Anesthesia Postop Eval I Summary Anesthesia Postop Eval I Summary: Anesthesia Postop Eval I: Assessment Summary Airway patent Yes 01/12/25 13:48 ELECTRIC [employer]GAN INSPECTOR AND REPAIRER.TNES Spontaneous unlabored Yes 01/12/25 13:48 ELECTRIC [employer]GAN INSPECTOR AND REPAIRER.TNES respirations Mental status nausea No 01/12/25 13:48 ELECTRIC [employer]GAN INSPECTOR AND REPAIRER.TNES Vomiting No 01/12/25 13:48 ELECTRIC [employer]GAN INSPECTOR AND REPAIRER.TNES Anesthesia Postop Eval I: Fluid Summary Crystalloid volume administer 1,000 01/12/25 13:48 ELECTRIC [employer]GAN INSPECTOR AND REPAIRER.TNES (ml) Colloids volume administered ( ml) Blood Product volume administered (ml) Total IV fluid infused 1,000 01/12/25 13:48 ELECTRIC [employer]GAN INSPECTOR AND REPAIRER.TNES Anesthesia Postop Eval I: Summary Notes Anesthesia Complication No 01/12/25 13:48 ELECTRIC [employer]GAN INSPECTOR AND REPAIRER.TNES Anesthesia Complication Comment: Post-operative progress note Anesthesia: Postop Eval II Evaluation Mental status: Awake Pain Level: 0 nausea: No Vomiting: No Complications Anesthesia Complication: No 01/12/25 1408 MD> Date _ José Escobar MD Cosigner Signature: Date CC: ~ Signed [facility]03-18-2025 Progress note Author Mohit Brown [facility] Note Date/Time January 12, 2025 12: 02pm [facility] Medical Records Department [address] [place] [address] Progress Note 01/12/25 1200 MR#: [id number] Acct: [id number] Name: TELMA TINEO Rep #:[id number] : 1940 84 From: Mohit Brown DO PCP: Dr. Henok Martinez MD Status:ADM I N Location: [place] [address] Progress Note Patient has been n.p.o. for ERCP today. All questions concerns were answered. Physical Exam Narrative Plesant 84 year old female who looks jaundiced Const alert, oriented x3 and average body habitus Resp normal respiratory effort, normal air movement and clear to auscultation bilaterally Cardio regular rate, regular rhythm, no murmurs and diaphoretic Assessment & Plan Assessment/Plan (1) Mass of head of pancreas: (2) Jaundice: (3) Hyperbilirubinemia: (4) Transaminitis: (5) Type 2 diabetes mellitus with hyperglycemia: QUALIFIERS: Diabetes mellitus correction insulin use: without termite control representative use Qualified Code(s): E11.65 - Type 2 diabetes mellitus with hyperglycemia (6) Overweight (BMI 25.0-29.9): (7) History of uterine cancer: (8) H/O: hysterectomy: (9) Atrial fibrillation: QUALIFIERS: Atrial fibrillation type: unspecified chronic Qualified Code(s): I48.20 - Chronic atrial fibrillation, unspecified PLAN: Plan 84 year-old with painless jaundice. She was discovered to have jaundice with cholestatic hepatitis on bloodwork.. CT evidence of dilated hepatic and pancreatic ducts with an area of hypoattenuation in the head of the pancreas concerning for Pancreatic Carcinoma with additional evidence of mild hepatocellular disease with a markedly distended/hydropic gallbladder. CA 19-9 level is pending at this time to confirm suspicion. Sh she agreed to undergo ERCP with cholangioscopy to hopefully allow for directed biopsies, and then staging for suspected pancreatic cancer. 01/12/25 1201 <Electronically signed by Mohit Brown DO> Mohit Brown DO Cosigner Signature (if applicable): CC: ~ Signed ADDENDUM by Mohit Brown DO on 01/12/25 at 1202 Visit Charges Inpatient E&M: 71485 Subs Hosp L1 01/12/25 1202 <Electronically signed by Mohit farmer DO> Date _ Mohit Brown DO Cosigner Signature (if applicable): Date cc: ~* Signed [facility] Work Phone: [phone]) 595-510403-18-2025 Consult note [facility] Medical Records Department [address] [place] [address] Anesthesia Postop Eval I 01/12/25 1348 MR#: [id number] Acct: [id number] Name: TELMA TINEO Rep #:[id number] : 1940 84 From: Jr RODAS PCP: Dr. Henok Martinez MD Status:ADM I N Y Race: H Location[place] [facility] [place] MS304 -1 Anesthesia: Postop Eval I Current Vital Signs Temperature: 97.7 F Pulse Rate: 81 Blood Pressure: 143/77 Respiratory Rate: 16 Pulse Ox: 96 Assessment Airway patent: Yes Spontaneous unlabored respirations: Yes nausea: No Vomiting: No Anesthesia Complication: No Fluid Hydration Crystalloid volume administer (ml): 1,000 Total IV fluid infused: 1,000 Progress Note Anesthesia document: Postop Eval 1 completed: Yes 01/12/25 1348 ELECTRIC ORGAN INSPECTOR AND REPAIRER> Date _ Jr [place] ELECTRIC ORGAN INSPECTOR AND REPAIRER Cosigner Signature: Date CC: ~ Signed [facility]03-18-2025 Procedure note [facility] Medical Records Department [address] [place] [address] ERCP Report MR#: [id number] Acct: [id number] Name: TELMA TINEO Rep #:[id number] : 1940 84 From: Mohit Brown DO PCP: Dr. Henok Martinez MD Status:ADM I N Patient Name: Telma Tineo Procedure Date: 01/12/2025 11:51 AM Date of : 1940 Age: 84 Procedure: ERCP Indications: Tumor of the head of pancreas Providers: Mohit Brown DO Medicines: Monitored Anesthesia Care Patient Profile: This is an 84 year old female. Refer to note in patient chart for documentation of history and physical. Patient has symptoms of acute jaundice. Complications: No immediate complications. Estimated blood loss: None Procedure: Pre-Anesthesia Assessment: - Prior to the procedure, a History and Physical was performed, and patient medications and allergies were reviewed. The patient is competent. The risks and benefits of the procedure and the sedation options and risks were discussed with the patient. All questions were answered and informed consent was obtained. Patient identification and proposed procedure were verified by the physician in the pre-procedure area. Mental Status Examination: alert and oriented. Airway Examination: normal oropharyngeal airway and neck mobility. Respiratory Examination: clear to auscultation. CV Examination: normal. Prophylactic Antibiotics: The patient does not require prophylactic antibiotics. Prior Anticoagulants: The patient has taken no anticoagulant or antiplatelet agents except for NSAID medication. ASA Grade Assessment: II - A patient with mild systemic disease. After reviewing the risks and benefits, the patient was deemed in satisfactory condition to undergo the procedure. The anesthesia plan was to use general anesthesia. Immediately prior to administration of medications, the patient was re-assessed for adequacy to receive sedatives. The heart rate, respiratory rate, oxygen saturations, blood pressure, adequacy of pulmonary ventilation, and response to care were monitored throughout the procedure. The physical status of the patient was re-assessed after the procedure. After obtaining informed consent, the scope was passed under direct vision. Throughout the procedure, the patient's blood pressure, pulse, and oxygen saturations were monitored continuously. The Duodenoscope was introduced through the mouth, and advanced to the duodenum without successful cannulation. 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 The patient tolerated the procedure well. Scope In: 12:21:51 PM Scope Out: 1:30:33 PM Total Procedure Duration Time 1 hour 8 minutes 42 seconds Findings: The cosmetologist film was normal. The bile duct could not be cannulated with the short-nosed traction sphincterotome. No biopsies or other specimens were collected for this exam. Impression: - No specimens collected. Procedure Code(s): --- Professional --- 51483, Esophagogastroduodenoscopy, flexible, transoral; diagnostic, including collection of specimen(s) by brushing or washing, when performed (separate procedure) CPT copyright 2021 [employer]. All rights reserved. The codes documented in this report are preliminary and upon sales representative jewelry review may be revised to meet current compliance requirements. Mohit Brown DO 01/12/2025 1:41:52 PM This report has been signed electronically. Number of Addenda: 0 Note Initiated On: 01/12/2025 11:51 AM 01/12/25 1342 Date _ Mohit Brown DO Cosignjose Signature: Date (if indicated) CC: Dr. Henok Martinez MD; Mohit Brown DO ~ Date Dictated: 01/12/25 1151 Date Transcribed: Supervisor Billposting: RF Signed [facility]03-18-2025 Procedure note [facility] Medical Records Department [address] [place] [address] Operative Report - CC Letter MR#: [id number] Acct: [id number] Name: TELMA TINEO Rep #:[id number] : 1940 84 From: Mohit Brown DO PCP: Dr. Henok Martinez MD Status:ADM I N 01/12/2025 Henok Martinez Re : ERCP procedure for Telma [place] This procedure was performed on Sunday, January 12, 2025. My impressions and recommendations are as follows: Impressions : - No specimens collected. Recommendations : My findings are described in the full procedure note, which is enclosed. If I can be of further assistance, please feel free to contact me at . Sincerely, Mohit Brown DO 01/12/2025 1:41:52 PM This report has been signed electronically. 01/12/25 1342 Date _ Mohit Edwards Signature: Date (if indicated) CC: Dr. Oniel Golden DO; Dr. Keenan Celeste DO; Dr. Jose Wu DO; Dr. Henok Martinez MD ~ Date Dictated: 01/12/25 1151 Date Transcribed: Supervisor Billposting: RF Signed [facility]03-18-2025 Consult note Author José Escobar [facility] Note Date/Time January 12, 2025 11: 00am [facility] Medical Records Department [address] [place] [address] Pre-Anesthesia Evaluation 01/12/25 1049 MR#: [id number] Acct: [id number] Name: TELMA TINEO Rep #:[id number] : 1940 84 From: José Escobar MD PCP: Dr. Henok Martinez MD Status:ADM I N Y Race: H [facility] [place] [facility] ASA Classification ASA Classification: 4 (PMHx of essential hypertension; on losartan, metoprolol and amlodipine, DM-2; on metformin, chronic atrial fibrillation; on apixaban, hxof TIA/CVA, mild cognitive impairment, hx of Lundberg's palsy, hx of right atrial mass, hx of asthma ) and E Assessment & Plan Anesthesia* Anesthesia Assessment Anesthesia Assessment: Discussed sedation and/or anesthesia options, risks, benefits, and alternatives with patient/parents/legal guardian/POA. Questions invited. The patient/parents/legal guardian/POA seems to understand and agrees to proceedwith anesthesia plan. Reviewed the physical assessment, medical history, allergy history and patient home medications list prior to surgery/procedure/anesthetic and documented any changes. Performed airway and anesthesia risk assessments. Anesthesia Type Anesthesia Type: General (ETT) History Source History Obtained from:: Patient and Chart Anesthesia Focused Assessment* Temperature: 97.6 F Pulse Rate: 79 Blood Pressure: 141/91 Respiratory Rate: 18 Pulse Ox: 98 Oxygen Delivery Method: Room Air Airway Assessment Mouth opens: >3 cm Mallampati Score: III Teeth Condition: Intact, Partial and Upper Neck Range of motion (ROM): Full ROM Focused Labs Anesthesia Preop lab: CBC WBC 5.0 K/mm3 (4.4-11.0) 01/11/25 05:48 01/11/25 RBC 3.94 M/mm3 (4.2-5.4) L 01/11/25 05:48 01/11/25 Hgb 11.7 g/dL (12.0-15.0) L 01/11/25 05:48 5 Hct 34.2 % (37-47) L 01/11/25 05:48 01/11/25 Plt Count 169 K/mm3 (150-450) 01/11/25 05:48 01/11/25 CHEMISTRY Potassium 3.8 mmol/L (3.3-5.1) 01/11/25 05:48 01/11/25 Sodium 136 mmol/L (133-145) 01/11/25 05:48 01/11/25 Magnesium 1.9 mg/dL (1.5-2.2) 01/09/25 19:21 01/09/25 Phosphorus 2.9 mg/dL (2.7-4.5) 01/10/25 05:19 01/10/25 BUN 8 mg/dL (4-19) 01/11/25 05:48 01/11/25 Creatinine 0.74 mg/dL (0.70-1.20) 01/11/25 05:48 01/11/25 Glucose 276 mg/dL (70-99) H 01/11/25 05:48 01/11/25 POC Glucose 214 mg/dL (74-106) H 01/12/25 06:14 01/12/25 TSH 2.180 uIU/mL (0.300-4.200) 01/10/25 05:19 12/26 04/21 COAG PT 12.8 SECONDS (11.7-14.9) 01/09/25 19:21 Pre-Assessment Diagnosis/Proposed Procedure Planned Operative Procedure(s): ERCP Anesthesia History Anesthesia History - topper press operator automatic: Anesthesia History - topper press operator automatic Hx Hospitalization Any Problems With Anesthesia No 01/11/25 21:37 Cholinesterase deficiency No 01/11/25 21:37 You/Your Family Experience No 01/11/25 21:37 fever (hyperthermia) with Relationship Recent Exposure to Contagious No 01/11/25 21:37 Disease Does patient have nerve No 01/11/25 21:37 stimulator Patient instructed to have No 01/11/25 21:37 device shut off --Does patient have Pacemaker No 01/12/25 08:02 or ICD? When Was Last Pacemaker Check QUESTION #4 FULL TEXT: You/Your Family Experience fever (hyperthermia) with Anesthesia Last Oral Intake Last Oral intake: Last Oral Intake NPO since 00:00 01/12/25 08:02 Meds taken in AM with sips of Yes 01/12/25 08:02 water? Meds patient instructed to BP meds 01/12/25 08:02 take am of surgery PONV PONV - topper press operator automatic: PONV - topper press operator automatic Female HX of Motion Sickness HX of N/V After Surgery Non-Smoker Duration of Surgery greater than 60 minutes Number of Risk Factors PONV Score Height & Weight Height & Weight: Anesthesia: Height & Weight Height 5 ft 01/12/25 08:02 Weight: 67.2 kg 01/12/25 08:02 Body Mass Index (BMI) 28.9 01/12/25 08:02 Respiratory Assessment Respiratory Assessment - topper press operator automatic: Respiratory Tract Infection Hx - topper press operator automatic Hx Respiratory Tract Infection No 01/11/25 21:37 STOP Sleep Apnea STOP Sleep Apnea - topper press operator automatic: STOP Sleep Apnea - topper press operator automatic Hx Hypertension Yes 01/11/25 11:23 Hx Sleep Apnea No 01/10/25 02:58 CPAP BIPAP Do you snore loudly (louder No 01/10/25 02:58 than talking or can be heard Do you often feel tired/ No 01/10/25 02:58 fatigued/ sleepy during daytime? Has anyone observed you stop No 01/10/25 02:58 breathing during sleep? STOP Results Negative 01/10/25 02:58 QUESTION #5 FULL TEXT : Do you snore loudly (louder than talking or can be heard through closed doors)? 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 Specify any problems Hx of Preganancy in last 3 N/A 01/10/25 02:58 Months Nurse Filling Out Transfusion JOELEESA 01/10/25 02:58 & Questions: Date: 01/10/25 01/10/25 02:58 Time: 02:58 01/10/25 02:58 Patient unable to answer at this time (ie. confused, unrespo /Reproduction History /Reproductive History - topper press operator automatic: /Reproductive Hx- topper press operator automatic Hx Now No 01/11/25 21:37 Gestational Age (in weeks): EDC: Hx Hx Para Hx Section SAB No 01/11/25 21:37 Active Medications Active Medications: Current Medications Generic Name Dose Route Start Last Admin Trade Name Freq PRN Reason Stop Dose Admin Al Hydroxide/Mg Hydroxide 30 ml 01/10/25 02:57 Mag Hydrox/Al Hydrox/Simeth 30 Ml Udc PO Q6H PRN PRN Gastric Burning Albuterol Sulfate 2.5 mg 01/10/25 02:57 Albuterol 2.5 Mg/3 Ml Vial.Neb. INHALATION Q2H PRN PRN SOB &/OR WHEEZING Amlodipine Besylate 10 mg 01/10/25 10:00 01/12/25 09:51 Amlodipine 10 Mg Tablet PO Not Given DAILY ALFREDO Protocol Enoxaparin Sodium 40 mg 01/10/25 10:00 01/12/25 07:28 Enoxaparin 40 Mg/0.4 Ml Syringe SC Not Given DAILY ALFREDO Glucagon 1 mg 01/10/25 07:49 Glucagon 1 Mg/Ml Syringe IM X1 PRN Hypoglycemia Protocol Sodium Chloride 100 mls @ 15 mls/hr 01/10/25 02:43 IV .Q6H40M PRN Saline Flush Sodium Chloride 100 mls @ 15 mls/hr 01/10/25 02:43 IV .Q6H40M PRN Additional IVPB Infusion Dextrose 250 mls @ 0 mls/hr 01/10/25 07:49 Dextrose 10%-Water IV .Q0M PRN HYPOGLYCEMIA Protocol As Directed Insulin Human Lispro 0 unit 01/10/25 11:00 01/12/25 10:46 Insulin Lispro 100 Unit/Ml Insuln.Pen SC Not Given ACHS ALFREDO Protocol Ketorolac Tromethamine 15 mg 01/10/25 02:57 Ketorolac 15 Mg/Ml Vial IV 01/15/25 02:57 Q8H PRN PRN Pain 1- 5/10 or Fever Losartan Potassium 100 mg 01/10/25 10:00 01/12/25 09:51 Losartan Potassium 100 Mg Tablet PO Not Given DAILY [facility] Protocol Magnesium Hydroxide 30 ml 01/10/25 02:57 Magnesium Hydroxide 30 Ml Udc PO DAILY PRN PRN Constipation Melatonin 3 mg 01/10/25 02:57 Melatonin 3 Mg Tablet PO QHS PRN PRN INSOMNIA Metoprolol Tartrate 50 mg 01/10/25 10:00 01/12/25 09:45 Metoprolol Tartrate 50 Mg Tablet PO 50 mg BID [facility] Administration Protocol Morphine Sulfate 2 mg 01/10/25 02:57 Morphine 2 Mg/Ml Syringe IV Q4H PRN PRN Pain Score 6-10 Multivitamins 1 tablet 01/10/25 08:00 01/12/25 07:28 [facility]ivit[facility],The[facility] Nutritional Formula (Lactose Free) 120 ml 01/10/25 17:00 01/12/25 10:07 Glucerna Shake 120 Ml Liquid PO Not Given TIDCM [facility] Ondansetron HCl 4 mg 01/10/25 02:57 Ondansetron 4 Mg/2 Ml Vial IV Q6H PRN PRN NAUSEA/VOMITING Pantoprazole Sodium 40 mg 01/12/25 10:00 01/12/25 07:28 Pantoprazole Sodium 40 Mg Tablet PO Not Given DAILY [facility] Sodium Chloride 10 - 40 ml 01/10/25 02:43 01/11/25 21:55 0.9% Saline Lock 10 Ml Syringe IV 10 ml UD PRN Administration SALINE FLUSH Throat Lozenges 1 lozenge 01/10/25 02:57 Benzocaine/Menthol 1 Lozenge MUCOUS MEM Q2H PRN PRN SORE THROAT [facility] Medical History Neck pain, bilateral History of TIA (transient ischemic attack) Stroke/cerebrovascular accident Essential hypertension Complaint of melena Transient ischemic attack (03/2021) History of Lundberg's palsy GERD (gastroesophageal reflux disease) History of cancer History of blood transfusion Right atrial mass Former smoker Asthma Diabetes mellitus, type 2 Home Medications ?Medication ?Instructions ?Recorded ?Last Taken ?Type multivitamin 1 tab PO DAILY 06/19/21 Unkn own History pantoprazole 40 mg tablet,delayed 40 mg PO DAILY gerd #90 tabs 08/28/21 Unknown Rx release metformin 500 mg tablet 500 mg PO BID 02/15/22 Unkno wn History atorvastatin 20 mg tablet 20 mg PO QHS 03/07/23 Unknow n History losartan 100 mg tablet 100 mg PO DAILY 03/07/23 Unk nown History metoprolol tartrate 50 mg tablet 50 mg PO BID 11/21/23 Unknown History benzocaine 15 mg-menthol 2.6 mg 1 cee mucous membrane Q2H PRN sore 02/25/24 Unknown Rx lozenges (Cepacol Sore Throat throat #16 ea (benzocaine-menthol)) apixaban 5 mg tablet 5 mg PO BID #180 tabs Unknown Rx amlodipine 10 mg tablet 10 mg PO DAILY #90 tabs 10/28 02/19 Unknown Rx Allergy/AdvReac Type Severity Reaction Status Date / Time Penicillins Allergy Severe Anaphylaxis Verified 01/12/25 10:54 tetracycline Allergy Severe anaphylaxis Verified 01/12/25 10:54 tramadol (From Ultram) AdvReac Severe syncope Verified 01/12/25 10:54 Family History Mother Pancreatic cancer CAD (coronary artery disease) Father Cancer Lung cancer Brother Parkinson disease Surgical History History of surgery H/O: hysterectomy H/O hemorrhoidectomy History of bladder surgery H/O rhinoplasty History of cataract surgery History of appendectomy Social History Smoking Status: Former smoker how long ago did patient quit smokin+ years alcohol intake: never substance use type: does not use Review of Systems (Anesthesia) ROS Narrative System reviewed and no additional complaints, except as documented. Physical Exam Narrative Plesant 84 year old female who looks jaundiced Const alert, oriented x3 and average body habitus Resp normal respiratory effort, normal air movement and clear to auscultation bilaterally Cardio regular rate, regular rhythm, no murmurs and diaphoretic 01/12/25 1100 <Electronically signed by José Escobar MD> Date _ José Escobar MD Cosigner Signature: Date CC: ~ Signed [facility] Work Phone: 1(628) 478-776303-18-2025 Progress note [facility] Medical Records Department [address] [place] [address] Progress Note 01/12/25 1200 MR#: [id number] Acct: [id number] Name: TELMA TINEO Rep #:[id number] : 1940 84 From: Mohit Friend DO PCP: Dr. Henok Martinez MD Status:ADM I N Location: [place] [address] Progress Note Patient has been n.p.o. for ERCP today. All questions concerns were answered. Physical Exam Narrative Plesant 84 year old female who looks jaundiced Const alert, oriented x3 and average body habitus Resp normal respiratory effort, normal air movement and clear to auscultation bilaterally Cardio regular rate, regular rhythm, no murmurs and diaphoretic Assessment & Plan Assessment/Plan (1) Mass of head of pancreas: (2) Jaundice: (3) Hyperbilirubinemia: (4) Transaminitis: (5) Type 2 diabetes mellitus with hyperglycemia: QUALIFIERS: Diabetes mellitus termite control representative insulin use: without correction use Qualified Code(s): E11.65 - Type 2 diabetes mellitus with hyperglycemia (6) Overweight (BMI 25.0-29.9): (7) History of uterine cancer: (8) H/O: hysterectomy: (9) Atrial fibrillation: QUALIFIERS: Atrial fibrillation type: unspecified chronic Qualified Code(s): I48.20 - Chronic atrial fibrillation, unspecified PLAN: Plan 84 year-old with painless jaundice. She was discovered to have jaundice with cholestatic hepatitis on bloodwork.. CT evidence of dilated hepatic and pancreatic ducts with an area of hypoattenuation in the head of the pancreas concerning for Pancreatic Carcinoma with additional evidence of mild hepat ocellular disease with a markedly distended/hydropic gallbladder. CA 19-9 level is pending at this time to confirm suspicion. Sh she agreed to undergo ERCP with cholangioscopy to hopefully allow for directed biopsies, and then staging for suspected pancreatic cancer. 01/12/25 1201 Mohit Brown DO Cosigner Signature (if applicable): CC: ~ Signed ADDENDUM by Mohit Brown DO on 01/12/25 at 1202 Visit Charges Inpatient E&M: 33539 Subs Hosp L1 01/12/25 1202 d DO> Date _ Mohit Brown DO Cosigner Signature (if applicable): Date cc: ~* Signed [facility]03-18-2025 Consult note [facility] Medical Records Department [address] [facility] [address] [place] [address] Pre-Anesthesia Evaluation 01/12/25 1049 MR#: [id number] Acct: [id number] Name: TELMA TINEO Rep #:[id number] : 1940 84 From: José Escobar MD PCP: Dr. Henok Martinez MD Status:ADM I N Y Race: H Location: [place] [address] ASA Classification* ASA Classification ASA Classification: 4 (PMHx of essential hypertension; on losartan, metoprolol and amlodipine, DM-2; on metformin, chronic atrial fibrillation; on apixaban, hxof TIA/CVA, mild cognitive impairment, hx of Lundberg's palsy, hx of right atrial mass, hx of asthma ) and E Assessment & Plan Anesthesia* Anesthesia Assessment Anesthesia Assessment: Discussed sedation and/or anesthesia options, risks, benefits, and alternatives with patient/parents/legal guardian/POA. Questions invited. The patient/parents/legal guardian/POA seems to understand and agrees to proceedwith anesthesia plan. Reviewed the physical assessment, medical history, allergy history and patient home medications list prior to surgery/procedure/anesthetic and documented any changes. Performed airway and anesthesia risk assessments. Anesthesia Type Anesthesia Type: General (ETT) History Source History Obtained from:: Patient and Chart Anesthesia Focused Assessment* Temperature: 97.6 F Pulse Rate: 79 Blood Pressure: 141/91 Respiratory Rate: 18 Pulse Ox: 98 Oxygen Delivery Method: Room Air Airway Assessment Mouth opens: >3 cm Mallampati Score: III Teeth Condition: Intact, Partial and Upper Neck Range of motion (ROM): Full ROM Focused Labs Anesthesia Preop lab: CBC WBC 5.0 K/mm3 (4.4-11.0) 01/11/25 05:48 01/11/25 RBC 3.94 M/mm3 (4.2-5.4) L 01/11/25 05:48 01/11/25 Hgb 11.7 g/dL (12.0-15.0) L 01/11/25 05:48 5 Hct 34.2 % (37-47) L 01/11/25 05:48 01/11/25 Plt Count 169 K/mm3 (150-450) 01/11/25 05:48 01/11/25 CHEMISTRY Potassium 3.8 mmol/L (3.3-5.1) 01/11/25 05:48 01/11/25 Sodium 136 mmol/L (133-145) 01/11/25 05:48 01/11/25 Magnesium 1.9 mg/dL (1.5-2.2) 01/09/25 19:21 01/09/25 Phosphorus 2.9 mg/dL (2.7-4.5) 01/10/25 05:19 01/10/25 BUN 8 mg/dL (4-19) 01/11/25 05:48 01/11/25 Creatinine 0.74 mg/dL (0.70-1.20) 01/11/25 05:48 01/11/25 Glucose 276 mg/dL (70-99) H 01/11/25 05:48 01/11/25 POC Glucose 214 mg/dL (74-106) H 01/12/25 06:14 01/12/25 TSH 2.180 uIU/mL (0.300-4.200) 01/10/25 05:19 12/26 04/21 COAG PT 12.8 SECONDS (11.7-14.9) 01/09/25 19:21 Pre-Assessment Diagnosis/Proposed Procedure Planned Operative Procedure(s): ERCP Anesthesia History Anesthesia History - topper press operator automatic: Anesthesia History - topper press operator automatic Hx Hospitalization Any Problems With Anesthesia No 01/11/25 21:37 Cholinesterase deficiency No 01/11/25 21:37 You/Your Family Experience No 01/11/25 21:37 fever (hyperthermia) with Relationship Recent Exposure to Contagious No 01/11/25 21:37 Disease Does patient have nerve No 01/11/25 21:37 stimulator Patient instructed to have No 01/11/25 21:37 device shut off --Does patient have Pacemaker No 01/12/25 08:02 or ICD? When Was Last Pacemaker Check QUESTION #4 FULL TEXT: You/Your Family Experience fever (hyperthermia) with Anesthesia Last Oral Intake Last Oral intake: Last Oral Intake NPO since 00:00 01/12/25 08:02 Meds taken in AM with sips of Yes 01/12/25 08:02 water? Meds patient instructed to BP meds 01/12/25 08:02 take am of surgery PONV PONV - topper press operator automatic: PONV - topper press operator automatic Female HX of Motion Sickness HX of N/V After Surgery Non-Smoker Duration of Surgery greater than 60 minutes Number of Risk Factors PONV Score Height & Weight Height & Weight: Anesthesia: Height & Weight Height 5 ft 01/12/25 08:02 Weight: 67.2 kg 01/12/25 08:02 Body Mass Index (BMI) 28.9 01/12/25 08:02 Respiratory Assessment Respiratory Assessment - topper press operator automatic: Respiratory Tract Infection Hx - topper press operator automatic Hx Respiratory Tract Infection No 01/11/25 21:37 STOP Sleep Apnea STOP Sleep Apnea - topper press operator automatic: STOP Sleep Apnea - topper press operator automatic Hx Hypertension Yes 01/11/25 11:23 Hx Sleep Apnea No 01/10/25 02:58 CPAP BIPAP Do you snore loudly (louder No 01/10/25 02:58 than talking or can be heard Do you often feel tired/ No 01/10/25 02:58 fatigued/ sleepy during daytime? Has anyone observed you stop No 01/10/25 02:58 breathing during sleep? STOP Results Negative 01/10/25 02:58 QUESTION #5 FULL TEXT : Do you snore loudly (louder than talking or can be heard through closeddoors)? 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 Specify any problems Hx of Preganancy in last 3 N/A 01/10/25 02:58 Months Nurse Filling Out Transfusion CHLOE 01/10/25 02:58 & Questions: Date: 01/10/25 01/10/25 02:58 Time: 02:58 01/10/25 02:58 Patient unable to answer at this time (ie. confused, unrespo /Reproduction History /Reproductive History - topper press operator automatic: /Reproductive Hx- topper press operator automatic Hx Now No 01/11/25 21:37 Gestational Age (in weeks): EDC: Hx Hx Para Hx Section SAB No 01/11/25 21:37 Active Medications Active Medications: Current Medications Generic Name Dose Route Start Last Admin Trade Name Freq PRN Reason Stop Dose Admin Al Hydroxide/Mg Hydroxide 30 ml 01/10/25 02:57 Mag Hydrox/Al Hydrox/Simeth 30 Ml Udc PO Q6H PRN PRN Gastric Burning Albuterol Sulfate 2.5 mg 01/10/25 02:57 Albuterol 2.5 Mg/3 Ml Vial.Neb. INHALATION Q2H PRN PRN SOB &/OR WHEEZING Amlodipine Besylate 10 mg 01/10/25 10:00 01/12/25 09:51 Amlodipine 10 Mg Tablet PO Not Given DAILY [facility] Protocol Enoxaparin Sodium 40 mg 01/10/25 10:00 01/12/25 07:28 Enoxaparin 40 Mg/0.4 Ml Syringe SC Not Given DAILY [facility] Glucagon 1 mg 01/10/25 07:49 Glucagon 1 Mg/Ml Syringe IM X1 PRN Hypoglycemia Protocol Sodium Chloride 100 mls @ 15 mls/hr 01/10/25 02:43 IV .Q6H40M PRN Saline Flush Sodium Chloride 100 mls @ 15 mls/hr 01/10/25 02:43 IV .Q6H40M PRN Additional IVPB Infusion Dextrose 250 mls @ 0 mls/hr 01/10/25 07:49 Dextrose 10%-Water IV .Q0M PRN HYPOGLYCEMIA Protocol As Directed Insulin Human Lispro 0 unit 01/10/25 11:00 01/12/25 10:46 Insulin Lispro 100 Unit/Ml Insuln.Pen SC Not Given ACHS [facility] Protocol Ketorolac Tromethamine 15 mg 01/10/25 02:57 Ketorolac 15 Mg/Ml Vial IV 01/15/25 02:57 Q8H PRN PRN Pain 1- 5/10 or Fever Losartan Potassium 100 mg 01/10/25 10:00 01/12/25 09:51 Losartan Potassium 100 Mg Tablet PO Not Given DAILY [facility] Protocol Magnesium Hydroxide 30 ml 01/10/25 02:57 Magnesium Hydroxide 30 Ml Udc PO DAILY PRN PRN Constipation Melatonin 3 mg 01/10/25 02:57 Melatonin 3 Mg Tablet PO QHS PRN PRN INSOMNIA Metoprolol Tartrate 50 mg 01/10/25 10:00 01/12/25 09:45 Metoprolol Tartrate 50 Mg Tablet PO 50 mg BID [facility] Administration Protocol Morphine Sulfate 2 mg 01/10/25 02:57 Morphine 2 Mg/Ml Syringe IV Q4H PRN PRN Pain Score 6-10 Multivitamins 1 tablet 01/10/25 08:00 01/12/25 07:28 [facility] Nutritional Formula (Lactose Free) 120 ml 01/10/25 17:00 01/12/25 10:07 Glucerna Shake 120 Ml Liquid PO Not Given TIDCM ALFREDO Ondansetron HCl 4 mg 01/10/25 02:57 Ondansetron 4 Mg/2 Ml Vial IV Q6H PRN PRN NAUSEA/VOMITING Pantoprazole Sodium 40 mg 01/12/25 10:00 01/12/25 07:28 Pantoprazole Sodium 40 Mg Tablet PO Not Given DAILY ALFREDO Sodium Chloride 10 - 40 ml 01/10/25 02:43 01/11/25 21:55 0.9% Saline Lock 10 Ml Syringe IV 10 ml UD PRN Administration SALINE FLUSH Throat Lozenges 1 lozenge 01/10/25 02:57 Benzocaine/Menthol 1 Lozenge MUCOUS MEM Q2H PRN PRN SORE THROAT PFSH Medical History Neck pain, bilateral History of TIA (transient ischemic attack) Stroke/cerebrovascular accident Essential hypertension Complaint of melena Transient ischemic attack (03/2021) History of Lundberg's palsy GERD (gastroesophageal reflux disease) History of cancer History of blood transfusion Right atrial mass Former smoker Asthma Diabetes mellitus, type 2 Home Medications ?Medication ?Instructions ?Recorded ?Last Taken ?Type multivitamin 1 tab PO DAILY 06/19/21 Unkn own History pantoprazole 40 mg tablet,delayed 40 mg PO DAILY gerd #90 tabs 08/28/21 Unknown Rx release metformin 500 mg tablet 500 mg PO BID 02/15/22 Unkno wn History atorvastatin 20 mg tablet 20 mg PO QHS 03/07/23 Unknow n History losartan 100 mg tablet 100 mg PO DAILY 03/07/23 Unk nown History metoprolol tartrate 50 mg tablet 50 mg PO BID 11/21/23 Unknown History benzocaine 15 mg-menthol 2.6 mg 1 cee mucous membrane Q2H PRN sore 02/25/24 Unknown Rx lozenges (Cepacol Sore Throat throat #16 ea (benzocaine-menthol)) apixaban 5 mg tablet 5 mg PO BID #180 tabs Unknown Rx amlodipine 10 mg tablet 10 mg PO DAILY #90 tabs 10/28 02/19 Unknown Rx Allergy/AdvReac Type Severity Reaction Status Date / Time Penicillins Allergy Severe Anaphylaxis Verified 01/12/25 10:54 tetracycline Allergy Severe anaphylaxis Verified 01/12/25 10:54 tramadol (From Ultram) AdvReac Severe syncope Verified 01/12/25 10:54 Family History Mother Pancreatic cancer CAD (coronary artery disease) Father Cancer Lung cancer Brother Parkinson disease Surgical History History of surgery H/O: hysterectomy H/O hemorrhoidectomy History of bladder surgery H/O rhinoplasty History of cataract surgery History of appendectomy Social History Smoking Status: Former smoker how long ago did patient quit smokin+ years alcohol intake: never substance use type: does not use Review of Systems (Anesthesia) ROS Narrative System reviewed and no additional complaints, except as documented. Physical Exam Narrative Plesant 84 year old female who looks jaundiced Const alert, oriented x3 and average body habitus Resp normal respiratory effort, normal air movement and clear to auscultation bilaterally Cardio regular rate, regular rhythm, no murmurs and diaphoretic 01/12/25 1100 MD> Date _ José Escobar MD Cosigner Signature: Date CC: ~ Signed [facility]03-17-2025 History and physical note Author Mohit Brown [facility] Note Date/Time January 11, 2025 8:1 9pm [facility] Medical Records Department [address] [place] [address] History & Physical Exam 01/11/252012 MR#: [id number] Acct: [id number] Name: TELMA TINEO Rep #:[id number] : 1940 84 From: Mohit Brown DO PCP: Dr. Henok Martinez MD Status:ADM I N Location: MS3 [id number] [facility] - General General Date of Admission: 01/10/25 Date of Service: 01/11/25 Chief Complaint: Jaundice. HPI Narrative TELMA TINEO, is a 84 F who presents with painless jaundice. She reports her symptoms began approximately 1 week prior to admission when she began to turn yellow, her urine turned orange and her stools turned white. She admits to associated nausea and generalized weakness and made it hard for her to complete her daily tasks. She denies vomiting, history of recent alcohol use, previous alcohol abuse or similar previous episodes. Her grandson informed the ER physician that she had stopped taking a few of her medications a few days ago and effort to try to improve her symptoms but no improvement was noted. In the ER she was noted to have CT evidence of dilated hepatic and pancreatic ducts with an area of hypoattenuation in the head of the pancreas concerning forPancreatic Carcinoma with additional evidence of mild hepatocellular disease with a markedly distended/hydropic gallbladder with corresponding laboratory evidence of Severe Hyperbilirubinemia; with total bilirubin of 9.78 mg/dL and direct bilirubin of 7.64 mg/dL in addition to Transaminitis; with AST of 308 units/L, ALT of 390 units/L and alkaline phosphatase of 416 units/L plus elevated lipase of 224 units/L suggestive of possible early pancreatitis with Hyperglycemia of 418 mg/dL all present on admission. Her mother of pancreatic cancer. [facility], [facility] Medical History Neck pain, bilateral History of TIA (transient ischemic attack) Stroke/cerebrovascular accident Essential hypertension Complaint of melena Transient ischemic attack (03/2021) History of Lundberg's palsy GERD (gastroesophageal reflux disease) History of cancer History of blood transfusion Right atrial mass Former smoker Asthma Diabetes mellitus, type 2 Home Medications ?Medication ?Instructions ?Recorded ?Last Taken ?Type multivitamin 1 tab PO DAILY 06/19/21 Unkn own History pantoprazole 40 mg tablet,delayed 40 mg PO DAILY gerd #90 tabs 08/28/21 Unknown Rx release metformin 500 mg tablet 500 mg PO BID 02/15/22 Unkno wn History atorvastatin 20 mg tablet 20 mg PO QHS 03/07/23 Unknow n History losartan 100 mg tablet 100 mg PO DAILY 03/07/23 Unk nown History metoprolol tartrate 50 mg tablet 50 mg PO BID 11/21/23 Unknown History benzocaine 15 mg-menthol 2.6 mg 1 cee mucous membrane Q2H PRN sore 02/25/24 Unknown Rx lozenges (Cepacol Sore Throat throat #16 ea (benzocaine-menthol)) apixaban 5 mg tablet 5 mg PO BID #180 tabs Unknown Rx amlodipine 10 mg tablet 10 mg PO DAILY #90 tabs 10/28 02/19 Unknown Rx Allergy/AdvReac Type Severity Reaction Status Date / Time Penicillins Allergy Severe Anaphylaxis Verified 01/09/25 19:02 tetracycline Allergy Severe anaphylaxis Verified 01/09/25 19:02 tramadol (From SelStor) AdvReac Severe syncope Verified 01/09/25 21:02 Family History Mother Pancreatic cancer CAD (coronary artery disease) Father Cancer Lung cancer Brother Parkinson disease Surgical History History of surgery H/O: hysterectomy H/O hemorrhoidectomy History of bladder surgery H/O rhinoplasty History of cataract surgery History of appendectomy Social History Smoking Status: Former smoker how long ago did patient quit smokin+ years alcohol intake: never substance use type: does not use ROS Constitutional Constitutional: Denies fatigue, fever(s), poor appetite, weight gain or weight loss Gastrointestinal Gastrointestinal: Denies belching, bloating, change in bowel habits, change in stool character, chewing difficulty, coffee ground emesis, constipation, cramping, diarrhea, dyspepsia, dysphagia, early satiety, excessive flatus, fecalincontinence, heartburn, hematemesis, hematochezia, hemorrhoids, loose stools, melena, nausea, odynophagia, rectal bleeding, tenesmus, vomiting or weight changes Vital Signs Vital Signs Vital Signs: 01/10/25 21:00 01/11/25 05:57 01/11/25 08:13 Temperature 97.7 F L 97.6 F L Temperature Source Oral Oral Pulse Rate 90 74 Respiratory Rate 16 16 Blood Pressure 172/104 H 159/87 H Blood Pressure Mean 126 111 Blood Pressure Source Monitor Monitor Blood Pressure Position Semi-Fowlers Semi-Fowlers Blood Pressure Location Right Arm Right Arm Pulse Ox 100 97 Oxygen Delivery Method Room Air Room Air Room Air 01/11/25 08:15 01/11/25 14:30 Temperature 97.7 F L 98 F Temperature Source Temporal Temporal Pulse Rate 97 84 Respiratory Rate 16 16 Blood Pressure 151/92 H 150/92 H Blood Pressure Mean 111 111 Blood Pressure Source Monitor Monitor Blood Pressure Position Semi-Fowlers Sitting Blood Pressure Location Left Arm Left Arm Pulse Ox 100 98 Oxygen Delivery Method Room Air Room Air Weight Weight: 147 lb 11.355 oz Body Mass Index (BMI) 29.0 Physical Exam Const alert, oriented x3, no apparent distress, average body habitus and healthy appearing General Appearance: cooperative, well kempt and well developed Orientation / Consciousness: awake, oriented to person, oriented to place and oriented to time HEENT normocephalic, head/scalp atraumatic and moist oral mucous membranes Eyes PERRL, EOMs intact bilaterally and conjunctivae normal Neck supple, no JVD, thyroid normal and no carotid bruits General: trachea midline Resp normal respiratory effort and clear to auscultation bilaterally Auscultation: Negative for rales, rhonchi or wheezes Cardio regular rate, regular rhythm, no murmurs, no rub and no gallops GI normal to inspection, nondistended, normoactive bowel sounds, soft to palpation,non-tender and non-distended Extremity no clubbing, cyanosis or edema Skin Skin Narrative: Patient appears jaundiced Neuro oriented x3, CN's II-XII intact bilaterally, moves all extremities, no focal motor deficits and no sensory deficits noted Sensorium / Orientation: awake and alert Speech: speech normal Psych affect normal Results Medical Records Data Medical Nutrition Assessment Dietitian: Malnutrition Criteria Met Start: 01/10/25 10:36 Freq: Status: Active Protocol: Document 01/10/25 12:40 SB (Rec: 01/10/25 12:40 SB [id number]) Nutrition Malnutrition Evidence of Yes Malnutrition Exists Malnutrition (severe Chronic ): Evidenced By Suboptimal Energy Intake (Moderate),Weight Loss ( Moderate) Clinical Problem Altered Nutrient-Related Laboratory Values Etiology related to endocrine dysfunction/diabetes Signs/Symptoms as evidenced by A1C 13.2% and glucose 371mg/dL Status Active Problem Chronic Disease or Condition Related Malnutrition Etiology moderate related to inadequate oral intake Signs/Symptoms as evidenced by PO meeting <75% of estimated nutrition needs x 4 months and 10% unintentional weight loss x 6 months. Status Active Problem Recommendation Dietitian Recommend advanced diet as tolerated to 1800 calorie Recommendations/ controlled/consistent carbohydrate diet. Changes As diet is advanced, order 120ml glucerna shake TID with medpass. Will consult MACHINE CUTTER d/t pt reporting difficulty chewing/ swallowing foods. Will monitor weight trends. Lab / Micro Data 01/11/25 05:48 01/11/25 05:48 Labs: Laboratory Results - last 24 hr 01/10/25 20:29: POC Glucose 388 H 01/11/25 05:48: WBC 5.0, RBC 3.94 L, Hgb 11.7 L, Hct 34.2 L, MCV 86.8, MCH 29.7,MCHC 34.2, RDW Std Deviation 47.8 H, RDW Coeff of [place] 15.1 H, Plt Count 169, MPV13.7 H, Immature Gran % (Auto) 0.400, Neut % (Auto) 62.1, Lymph % (Auto) 22.9, [place] % (Auto) 11.6 H, Eos % (Auto) 2.4, Baso % (Auto) 0.6, Absolute Neuts (auto) 3.1, Absolute Lymphs (auto) 1.14, Nucleated RBC % 0, Sodium 136, Potassium 3.8, Chloride 103, Carbon Dioxide 20.0 L, Anion Gap 13, BUN 8, Creatinine 0.74, EstimCreat Clear Calc 44.71 L, Est GFR (MDRD) Non-Af 81, BUN/Creatinine Ratio 10.8, Glucose 276 H, Calcium 9.5, Total Bilirubin 10.20 H, AST 247 H, ALT 343 H, Alkaline Phosphatase 366 H, Total Protein 5.9, Albumin 3.9, Globulin 2.1 L, Albumin/Globulin Ratio 1.8, POC Glucose 269 H 01/11/25 11:13: POC Glucose 414 H 01/11/25 16:28: POC Glucose 411 H Assessment & Plan Assessment/Plan (1) Mass of head of pancreas: (2) Jaundice: (3) Hyperbilirubinemia: (4) Transaminitis: (5) Type 2 diabetes mellitus with hyperglycemia: QUALIFIERS: Diabetes mellitus termite control representative insulin use: without termite control representative use Qualified Code(s): E11.65 - Type 2 diabetes mellitus with hyperglycemia (6) Overweight (BMI 25.0-29.9): (7) History of uterine cancer: (8) H/O: hysterectomy: (9) Atrial fibrillation: QUALIFIERS: Atrial fibrillation type: unspecified chronic Qualified Code(s): I48.20 - Chronic atrial fibrillation, unspecified PLAN: Plan 84 year-old with painless jaundice. She was discovered to have jaundice with cholestatic hepatitis on bloodwork.. CT evidence of dilated hepatic and pancreatic ducts with an area of hypoattenuation in the head of the pancreas concerning for Pancreatic Carcinoma with additional evidence of mild hepatocellular disease with a markedly distended/hydropic gallbladder. CA 19-9 level is pending at this time to confirm suspicion. Sh she agreed to undergo ERCP with cholangioscopy to hopefully allow for directed biopsies, and then staging for suspected pancreatic cancer. Charges/Coding Visit Charges Inpatient E&M: 84371 Init Hosp L3 01/11/252018 <Electronically signed by Mohit Brown DO> Cosigner Signature (if applicable): CC: Dr. Henok Martienz MD; Mohit Brown DO~ Signed [facility] Work Phone: [phone] [phone] History and physical note [facility] Medical Records Department [address] [place] [address] History & Physical Exam 01/11/252012 MR#: [id number] Acct: [id number] Name: TELMA TINEO Rep #:[id number] : 1940 84 From: Mohit Brown DO PCP: Dr. Henok Martinez MD Status:ADM I N Location: [address] HPI - General General Date of Admission: 01/10/25 Date of Service: 01/11/25 Chief Complaint: Jaundice. HPI Narrative TELMA ITNEO, is a 84 F who presents with painless jaundice. She reports her symptoms began approximately 1 week prior to admission when she began to turn yellow, her urine turned orange and her stools turned white. She admits to associated nausea and generalized weakness and made it hard for her to complete her daily tasks. She denies vomiting, history of recent alcohol use, previous alcohol abuse or similar previous episodes. Her grandson informed the ER physician that she had stopped taking a few of her medications a few days ago and effort to try to improve her symptoms but no improvement was noted. In the ER she was noted to have CT evidence of dilated hepatic and pancreatic ducts with an area ofhypoattenuation in the head of the pancreas concerning forPancreatic Carcinoma with additional evidence of mild hepatocellular disease with a markedly distended/hydropic gallbladder with corresponding laboratory evidence of Severe Hyperbilirubinemia; with total bilirubin of 9.78 mg/dL and direct bilirubin of 7.64 mg/dL in addition to Transaminitis; with AST of 308 units/L, ALT of 390 units/L and alkaline phosphatase of 416 units/L plus elevated lipase of 224 units/L suggestive of possible earlypancreatitis with Hyperglycemia of 418 mg/dL all present on admission. Her mother of pancreatic cancer. FORMERLY [facility] Medical History Neck pain, bilateral History of TIA (transient ischemic attack) Stroke/cerebrovascular accident Essential hypertension Complaint of melena Transient ischemic attack (03/2021) History of Lundberg's palsy GERD (gastroesophageal reflux disease) History of cancer History of blood transfusion Right atrial mass Former smoker Asthma Diabetes mellitus, type 2 Home Medications ?Medication ?Instructions ?Recorded ?Last Taken ?Type multivitamin 1 tab PO DAILY 06/19/21 Unkn own History pantoprazole 40 mg tablet,delayed 40 mg PO DAILY gerd #90 tabs 08/28/21 Unknown Rx release metformin 500 mg tablet 500 mg PO BID 02/15/22 Unkno wn History atorvastatin 20 mg tablet 20 mg PO QHS 03/07/23 Unknow n History losartan 100 mg tablet 100 mg PO DAILY 03/07/23 Unk nown History metoprolol tartrate 50 mg tablet 50 mg PO BID 11/21/23 Unknown History benzocaine 15 mg-menthol 2.6 mg 1 cee mucous membrane Q2H PRN sore 02/25/24 Unknown Rx lozenges (Cepacol Sore Throat throat #16 ea (benzocaine-menthol)) apixaban 5 mg tablet 5 mg PO BID #180 tabs Unknown Rx amlodipine 10 mg tablet 10 mg PO DAILY #90 tabs 10/28 02/19 Unknown Rx Allergy/AdvReac Type Severity Reaction Status Date / Time Penicillins Allergy Severe Anaphylaxis Verified 01/09/25 19:02 tetracycline Allergy Severe anaphylaxis Verified 01/09/25 19:02 tramadol (From Ultram) AdvReac Severe syncope Verified 01/09/25 21:02 Family History Mother Pancreatic cancer CAD (coronary artery disease) Father Cancer Lung cancer Brother Parkinson disease Surgical History History of surgery H/O: hysterectomy H/O hemorrhoidectomy History of bladder surgery H/O rhinoplasty History of cataract surgery History of appendectomy Social History Smoking Status: Former smoker how long ago did patient quit smokin+ years alcohol intake: never substance use type: does not use ROS Constitutional Constitutional: Denies fatigue, fever(s), poor appetite, weight gain or weight loss Gastrointestinal Gastrointestinal: Denies belching, bloating, change in bowel habits, change in stool character, chewing difficulty, coffee ground emesis, constipation, cramping, diarrhea, dyspepsia, dysphagia, earlysatiety, excessive flatus, fecalincontinence, heartburn, hematemesis, hematochezia, hemorrhoids, loose stools, melena, nausea, odynophagia, rectal bleeding, tenesmus, vomiting or weight changes Vital Signs Vital Signs Vital Signs: 01/10/25 21:00 01/11/25 05:57 01/11/25 08:13 Temperature 97.7 F L 97.6 F L Temperature Source Oral Oral Pulse Rate 90 74 Respiratory Rate 16 16 Blood Pressure 172/104 H 159/87 H Blood Pressure Mean 126 111 Blood Pressure Source Monitor Monitor Blood Pressure Position Semi-Fowlers Semi-Fowlers Blood Pressure Location Right Arm Right Arm Pulse Ox 100 97 Oxygen Delivery Method Room Air Room Air Room Air 01/11/25 08:15 01/11/25 14:30 Temperature 97.7 F L 98 F Temperature Source Temporal Temporal Pulse Rate 97 84 Respiratory Rate 16 16 Blood Pressure 151/92 H 150/92 H Blood Pressure Mean 111 111 Blood Pressure Source Monitor Monitor Blood Pressure Position Semi-Fowlers Sitting Blood Pressure Location Left Arm Left Arm Pulse Ox 100 98 Oxygen Delivery Method Room Air Room Air Weight Weight: 147 lb 11.355 oz Body Mass Index (BMI) 29.0 Physical Exam Const alert, oriented x3, no apparent distress, average body habitus and healthy appearing General Appearance: cooperative, well kempt and well developed Orientation / Consciousness: awake, oriented to person, oriented to place and oriented to time HEENT normocephalic, head/scalp atraumatic and moist oral mucous membranes Eyes PERRL, EOMs intact bilaterally and conjunctivae normal Neck supple, no JVD, thyroid normal and no carotid bruits General: trachea midline Resp normal respiratory effort and clear to auscultation bilaterally Auscultation: Negative for rales, rhonchi or wheezes Cardio regular rate, regular rhythm, no murmurs, no rub and no gallops GI normal to inspection, nondistended, normoactive bowel sounds, soft to palpation,non-tender and non-distended Extremity no clubbing, cyanosis or edema Skin Skin Narrative: Patient appears jaundiced Neuro oriented x3, CN's II-XII intact bilaterally, moves all extremities, no focal motor deficits and no sensory deficits noted Sensorium / Orientation: awake and alert Speech: speech normal Psych affect normal Results Medical Records Data Medical Nutrition Assessment Dietitian: Malnutrition Criteria Met Start: 01/10/25 10:36 Freq: Status: Active Protocol: Document 01/10/25 12:40 SB (Rec: 01/10/25 12:40 SB [id number]) Nutrition Malnutrition Evidence of Yes Malnutrition Exists Malnutrition (severe Chronic ): Evidenced By Suboptimal Energy Intake (Moderate),Weight Loss ( Moderate) Clinical Problem Altered Nutrient-Related Laboratory Values Etiology related to endocrine dysfunction/diabetes Signs/Symptoms as evidenced by A1C 13.2% and glucose 371mg/dL Status Active Problem Chronic Disease or Condition Related Malnutrition Etiology moderate related to inadequate oral intake Signs/Symptoms as evidenced by PO meeting <75% of estimated nutrition needs x 4 months and 10% unintentional weight loss x 6 months. Status Active Problem Recommendation Dietitian Recommend advanced diet as tolerated to 1800 calorie Recommendations/ controlled/consistent carbohydrate diet. Changes As diet is advanced, order 120ml glucerna shake TID with medpass. Will consult MACHINE CUTTER d/t pt reporting difficulty chewing/ swallowing foods. Will monitor weight trends. Lab / Micro Data 01/11/25 05:48 01/11/25 05:48 Labs: Laboratory Results - last 24 hr 01/10/25 20:29: POC Glucose 388 H 01/11/25 05:48: WBC 5.0, RBC 3.94 L, Hgb 11.7 L, Hct 34.2 L, MCV 86.8, MCH 29.7,MCHC 34.2, RDW Std Deviation 47.8 H, RDW Coeff of [place] 15.1 H, Plt Count 169, MPV13.7 H, Immature Gran % (Auto) 0.400, Neut % (Auto) 62.1, Lymph % (Auto) 22.9, [place] % (Auto) 11.6 H, Eos % (Auto) 2.4, Baso % (Auto) 0.6, Absolute Neuts (auto) 3.1, Absolute Lymphs (auto) 1.14, Nucleated RBC % 0, Sodium 136, Potassium 3.8,Chloride 103, Carbon Dioxide 20.0 L, Anion Gap 13, BUN 8, Creatinine 0.74, EstimCreat Clear Calc 44.71 L, Est GFR (MDRD) Non-Af 81, BUN/Creatinine Ratio 10.8, Glucose 276 H, Calcium 9.5, Total Bilirubin 10.20 H, AST 247 H, ALT 343 H, Alkaline Phosphatase 366 H, Total Protein 5.9, Albumin 3.9, Globulin 2.1 L, Albumin/Globulin Ratio 1.8, POC Glucose 269 H 01/11/25 11:13: POC Glucose 414 H 01/11/25 16:28: POC Glucose 411 H Assessment & Plan Assessment/Plan (1) Mass of head of pancreas: (2) Jaundice: (3) Hyperbilirubinemia: (4) Transaminitis: (5) Type 2 diabetes mellitus with hyperglycemia: QUALIFIERS: Diabetes mellitus correction insulin use: without termite control representative use Qualified Code(s): E11.65 - Type 2 diabetes mellitus with hyperglycemia (6) Overweight (BMI 25.0-29.9): (7) History of uterine cancer: (8) H/O: hysterectomy: (9) Atrial fibrillation: QUALIFIERS: Atrial fibrillation type: unspecified chronic Qualified Code(s): I48.20 - Chronic atrial fibrillation, unspecified PLAN: Plan 84 year-old with painless jaundice. She was discovered to have jaundice with cholestatic hepatitis on bloodwork.. CT evidence of dilated hepatic and pancreatic ducts with an area of hypoattenuation in the head of the pancreas concerning for Pancreatic Carcinoma with additional evidence of mild hepat ocellular disease with a markedly distended/hydropic gallbladder. CA 19-9 level is pending at this time to confirm suspicion. Sh she agreed to undergo ERCP with cholangioscopy to hopefully allow for directed biopsies, and then staging for suspected pancreatic cancer. Charges/Coding Visit Charges Inpatient E&M: 56324 Init Hosp L3 01/11/252018 Cosigner Signature (if applicable): CC: Dr. Henok Martinez MD; Mohit Brown DO~ Signed [facility]03-17-2025 [facility] Medical Records Department [address] [place] [address] History Physical Exam 01/11/252012 MR#: [id number] Acct: [id number] Name: TELMA TINEO Rep #: [id number] : 1940 84 From: Mohit Brown DO PCP: Dr. Henok Martinez MD Status:ADM IN Location: [facility] [id number] [facility] Date of Admission: 01/10/25 Date of Service: 01/11/25 Chief Complaint: Jaundice. [facility] Narrative TELMA TINEO, is a 84 F who presents with painless jaundice. She reports her symptoms began approximately 1 week prior to admission when she began to turn yellow, her urine turned orange and her stools turned white. She admits to associated nausea and generalized weakness and made it hard for her to complete her daily tasks. She denies vomiting, history of recent alcohol use, previous alcohol abuse or similar previous episodes. Her grandson informed the ER physician that she had stopped taking a few of her medications a few days ago and effort to try to improve her symptoms but no improvement was noted. In the ER she was noted to have CT evidence of dilated hepatic and pancreatic ducts with an area of hypoattenuation in the head of the pancreas concerning for Pancreatic Carcinoma with additional evidence of mild hepatocellular disease with a markedly distended/hydropic gallbladder with corresponding laboratory evidence of Severe Hyperbilirubinemia; with total bilirubin of 9.78 mg/dL and direct bilirubin of 7.64 mg/dL in addition to Transaminitis; with AST of 308 units/L, ALT of 390 units/L and alkaline phosphatase of 416 units/L plus elevated lipase of 224 units/L suggestive of possible early pancreatitis with Hyperglycemia of 418 mg/dL all present on admission. Her mother of pancreatic cancer. [facility] Medical History Neck pain, bilateral History of TIA (transient ischemic attack) Stroke/cerebrovascular accident Essential hypertension Complaint of melena Transient ischemic attack (03/2021) History of Lundberg's palsy GERD (gastroesophageal reflux disease) History of cancer History of blood transfusion Right atrial mass Former smoker Asthma Diabetes mellitus, type 2 Home Medications ???Medication ???Instructions ???Recorded ???Last Taken ???Type multivitamin 1 tab PO DAILY 06/19/21 Unknown Hi story pantoprazole 40 mg tablet,delayed 40 mg PO DAILY gerd #90 tabs 11/17 Unknown Rx release metformin 500 mg tablet 500 mg PO BID 02/15/22 Unknown His tory atorvastatin 20 mg tablet 20 mg PO QHS 03/07/23 Unknown Hist ory losartan 100 mg tablet 100 mg PO DAILY 03/07/23 Unknown H istory metoprolol tartrate 50 mg tablet 50 mg PO BID 11/21/23 Unknown Hist ory benzocaine 15 mg-menthol 2.6 mg 1 cee mucous membrane Q2H PRN sore 02/25/24 Unknown Rx lozenges (Cepacol Sore Throat throat #16 ea (benzocaine-menthol)) apixaban 5 mg tablet 5 mg PO BID #180 tabs 04/28/24 Unk nown Rx amlodipine 10 mg tablet 10 mg PO DAILY #90 tabs 11/10/24 U nknown Rx Allergy/AdvReac Type Severity Reaction Status Date / Time Penicillins Allergy Severe Anaphylaxis Verified 01/09/25 19:02 tetracycline Allergy Severe anaphylaxis Verified 01/09/25 19:02 tramadol (From Ultram) AdvReac Severe syncope Verified 01/09/25 21:02 Family History Mother Pancreatic cancer CAD (coronary artery disease) Father Cancer Lung cancer Brother Parkinson disease Surgical History History of surgery H/O: hysterectomy H/O hemorrhoidectomy History of bladder surgery H/O rhinoplasty History of cataract surgery History of appendectomy Social History Smoking Status: Former smoker how long ago did patient quit smokin+ years alcohol intake: never substance use type: does not use ROS Constitutional Constitutional: Denies fatigue, fever(s), poor appetite, weight gain or weight loss Gastrointestinal Gastrointestinal: Denies belching, bloating, change in bowel habits, change in stool character, chewing difficulty, coffee ground emesis, constipation, cramping, diarrhea, dyspepsia, dysphagia, early satiety, excessive flatus, fecal incontinence, heartburn, hematemesis, hematochezia, hemorrhoids, loose stools, melena, nausea, odynophagia, rectal bleeding, tenesmus, vomiting or weight changes Vital Signs Vital Signs Vital Signs: 01/10/25 21:00 01/11/25 05:57 01/11/25 08:13 Temperature 97.7 F L 97.6 F L Temperature Source Oral Oral Pulse Rate 90 74 Respiratory Rate 16 16 Blood Pressure 172/104 H 159/87 H Blood Pressure Mean 126 111 Blood Pressure Source Monitor Monitor Bl (more content not included)...[facility]03-17-2025 Progress note Author Jose Wu [facility] Note Date/Time January 11, 2025 3:4 0pm [facility] Medical Records Department [address] [place] [id number] Progress Note - Hospitalist 01/11/25 1534 MR#: [id number] Acct: [id number] Name: TELMA TINEO Rep #:[id number] : 1940 84 From: Jose Wu DO PCP: Dr. Henok Martinez MD Status:ADM I N Location: [place] [address] Reason for Visit Reason for Visit: Diagnoses Type 2 diabetes mellitus with hyperglycemia (01/10/25) Overweight (01/10/25) Other disorders of bilirubin metabolism (01/10/25) Chronic atrial fibrillation, unspecified (01/10/25) Other specified diseases of pancreas (01/10/25) Unspecified jaundice (01/10/25) Elevation of levels of liver transaminase levels (01/10/25) Personal history of malignant neoplasm of other parts of uterus (01/10/25) Acquired absence of both cervix and uterus (01/10/25) Subjective Subjective Patient was seen and examined today, she does not have any complaints of abdominal pain today. We have not yet received approval with a bed for the patient be transferred to [facility]. Objective Data Objective Data Vital Signs: Vital Signs Temp Pulse Resp BP Pulse Ox O2 Del Method 97.7 F L 97 16 151/92 H 100 Room Air 01/11/25 08:15 01/11/25 08:15 01/11/25 08:15 01/11/25 08:15 01/11/25 08:15 01/11/25 08:15 Oxygen Delivery Method Room Air Weight: 67 kg Body Mass Index (BMI) 29.0 Intake & Output: Intake and Output for Last 24 Hours 01/09/25 01/10/25 01/11/25 23:59 23:59 23:59 Intake Total 1220 / 1220 Balance 1220 / 1220 Medical Nutrition Assessment Dietitian: Malnutrition Criteria Met Start: 01/10/25 10:36 Freq: Status: Active Protocol: Document 01/10/25 12:40 SB (Rec: 01/10/25 12:40 SB [id number]) Nutrition Malnutrition Evidence of Yes Malnutrition Exists Malnutrition (severe Chronic ): Evidenced By Suboptimal Energy Intake (Moderate),Weight Loss ( Moderate) Clinical Problem Altered Nutrient-Related Laboratory Values Etiology related to endocrine dysfunction/diabetes Signs/Symptoms as evidenced by A1C 13.2% and glucose 371mg/dL Status Active Problem Chronic Disease or Condition Related Malnutrition Etiology moderate related to inadequate oral intake Signs/Symptoms as evidenced by PO meeting <75% of estimated nutrition needs x 4 months and 10% unintentional weight loss x 6 months. Status Active Problem Recommendation Dietitian Recommend advanced diet as tolerated to 1800 calorie Recommendations/ controlled/consistent carbohydrate diet. Changes As diet is advanced, order 120ml glucerna shake TID with medpass. Will consult MACHINE CUTTER d/t pt reporting difficulty chewing/ swallowing foods. Will monitor weight trends. Lab / Micro Data 01/11/25 05:48 01/11/25 05:48 Labs: Laboratory Results - last 24 hr 01/10/25 16:22: POC Glucose 369 H 01/10/25 20:29: POC Glucose 388 H 01/11/25 05:48: WBC 5.0, RBC 3.94 L, Hgb 11.7 L, Hct 34.2 L, MCV 86.8, MCH 29.7,MCHC 34.2, RDW Std Deviation 47.8 H, RDW Coeff of [place] 15.1 H, Plt Count 169, MPV13.7 H, Immature Gran % (Auto) 0.400, Neut % (Auto) 62.1, Lymph % (Auto) 22.9, [place] % (Auto) 11.6 H, Eos % (Auto) 2.4, Baso % (Auto) 0.6, Absolute Neuts (auto) 3.1, Absolute Lymphs (auto) 1.14, Nucleated RBC % 0, Sodium 136, Potassium 3.8, Chloride 103, Carbon Dioxide 20.0 L, Anion Gap 13, BUN 8, Creatinine 0.74, EstimCreat Clear Calc 44.71 L, Est GFR (MDRD) Non-Af 81, BUN/Creatinine Ratio 10.8, Glucose 276 H, Calcium 9.5, Total Bilirubin 10.20 H, AST 247 H, ALT 343 H, Alkaline Phosphatase 366 H, Total Protein 5.9, Albumin 3.9, Globulin 2.1 L, Albumin/Globulin Ratio 1.8, POC Glucose 269 H 01/11/25 11:13: POC Glucose 414 H Physical Exam Const alert, oriented x3, no apparent distress, average body habitus and healthy appearing General Appearance: cooperative, well kempt and well developed Orientation / Consciousness: awake, oriented to person, oriented to place and oriented to time HEENT normocephalic, head/scalp atraumatic and moist oral mucous membranes Eyes PERRL, EOMs intact bilaterally and conjunctivae normal Neck supple, no JVD, thyroid normal and no carotid bruits General: trachea midline Resp normal respiratory effort and clear to auscultation bilaterally Auscultation: Negative for rales, rhonchi or wheezes Cardio regular rate, regular rhythm, no murmurs, no rub and no gallops GI normal to inspection, nondistended, normoactive bowel sounds, soft to palpation,non-tender and non-distended Extremity no clubbing, cyanosis or edema Skin Skin Narrative: Patient appears jaundiced Neuro oriented x3, CN's II-XII intact bilaterally, moves all extremities, no focal motor deficits and no sensory deficits noted Sensorium / Orientation: awake and alert Speech: speech normal Psych affect normal Assessment & Plan Assessment/Plan (1) Pancreatic mass: PLAN: Plan 1. Pancreatic mass-suspicious for pancreatic cancer, patient is awaiting a bed in [facility] for further care #2 obstructive jaundice secondary to #1-complicates care, management, recovery, and prognosis #3 type 2 diabetes-patient is receiving sliding scale insulin per fingerstick blood sugars #4 essential hypertension-patient is on Cozaar and metoprolol, blood pressure will be monitored Total clinical time spent by myself addressing the patient's medical issues, reviewing all of her data, and collaborating with patient's care team: 35 minutes Charges/Coding Visit Charges Inpatient E&M: 77794 Subs Hosp L2 01/11/25 1540 <Electronically signed by Jose Wu DO> Cosigner Signature (if applicable): CC: ~ Signed [facility] Work Phone: [phone] Progress note [facility] Medical Records Department [address] [place] [address] Progress Note - Hospitalist 01/11/25 1534 MR#: [id number] Acct: [id number] Name: TELMA TINEO Rep #:[id number] : 1940 84 From: Jose Wu DO PCP: Dr. Henok Martinez MD Status:ADM I N Location: [place] [address] Reason for Visit Reason for Visit: Diagnoses Type 2 diabetes mellitus with hyperglycemia (01/10/25) Overweight (01/10/25) Other disorders of bilirubin metabolism (01/10/25) Chronic atrial fibrillation, unspecified (01/10/25) Other specified diseases of pancreas (01/10/25) Unspecified jaundice (01/10/25) Elevation of levels of liver transaminase levels (01/10/25) Personal history of malignant neoplasm of other parts of uterus (01/10/25) Acquired absence of both cervix and uterus (01/10/25) Subjective Subjective Patient was seen and examined today, she does not have any complaints of abdominal pain today. We have not yet received approval with a bed for the patient be transferred to [facility]. Objective Data Objective Data Vital Signs: Vital Signs Temp Pulse Resp BP Pulse Ox O2 Del Method 97.7 F L 97 16 151/92 H 100 Room Air 01/11/25 08:15 01/11/25 08:15 01/11/25 08:15 01/11/25 08:15 01/11/25 08:15 01/11/25 08:15 Oxygen Delivery Method Room Air Weight: 67 kg Body Mass Index (BMI) 29.0 Intake & Output: Intake and Output for Last 24 Hours 01/09/25 01/10/25 01/11/25 23:59 23:59 23:59 Intake Total 1220 / 1220 Balance 1220 / 1220 Medical Nutrition Assessment Dietitian: Malnutrition Criteria Met Start: 01/10/25 10:36 Freq: Status: Active Protocol: Document 01/10/25 12:40 SB (Rec: 01/10/25 12:40 SB [id number]) Nutrition Malnutrition Evidence of Yes Malnutrition Exists Malnutrition (severe Chronic ): Evidenced By Suboptimal Energy Intake (Moderate),Weight Loss ( Moderate) Clinical Problem Altered Nutrient-Related Laboratory Values Etiology related to endocrine dysfunction/diabetes Signs/Symptoms as evidenced by A1C 13.2% and glucose 371mg/dL Status Active Problem Chronic Disease or Condition Related Malnutrition Etiology moderate related to inadequate oral intake Signs/Symptoms as evidenced by PO meeting <75% of estimated nutrition needs x 4 months and 10% unintentional weight loss x 6 months. Status Active Problem Recommendation Dietitian Recommend advanced diet as tolerated to 1800 calorie Recommendations/ controlled/consistent carbohydrate diet. Changes As diet is advanced, order 120ml glucerna shake TID with medpass. Will consult MACHINE CUTTER d/t pt reporting difficulty chewing/ swallowing foods. Will monitor weight trends. Lab / Micro Data 01/11/25 05:48 01/11/25 05:48 Labs: Laboratory Results - last 24 hr 01/10/25 16:22: POC Glucose 369 H 01/10/25 20:29: POC Glucose 388 H 01/11/25 05:48: WBC 5.0, RBC 3.94 L, Hgb 11.7 L, Hct 34.2 L, MCV 86.8, MCH 29.7,MCHC 34.2, RDW Std Deviation 47.8 H, RDW Coeff of [place] 15.1 H, Plt Count 169, MPV13.7 H, Immature Gran % (Auto) 0.400, Neut % (Auto) 62.1, Lymph % (Auto) 22.9, [place] % (Auto) 11.6 H, Eos % (Auto) 2.4, Baso % (Auto) 0.6, Absolute Neuts (auto) 3.1, Absolute Lymphs (auto) 1.14, Nucleated RBC % 0, Sodium 136, Potassium 3.8,Chloride 103, Carbon Dioxide 20.0 L, Anion Gap 13, BUN 8, Creatinine 0.74, EstimCreat Clear Calc 44.71 L, Est GFR (MDRD) Non-Af 81, BUN/Creatinine Ratio 10.8, Glucose 276 H, Calcium 9.5, Total Bilirubin 10.20 H, AST 247 H, ALT 343 H, Alkaline Phosphatase 366 H, Total Protein 5.9, Albumin 3.9, Globulin 2.1 L, Albumin/Globulin Ratio 1.8, POC Glucose 269 H 01/11/25 11:13: POC Glucose 414 H Physical Exam Const alert, oriented x3, no apparent distress, average body habitus and healthy appearing General Appearance: cooperative, well kempt and well developed Orientation / Consciousness: awake, oriented to person, oriented to place and oriented to time HEENT normocephalic, head/scalp atraumatic and moist oral mucous membranes Eyes PERRL, EOMs intact bilaterally and conjunctivae normal Neck supple, no JVD, thyroid normal and no carotid bruits General: trachea midline Resp normal respiratory effort and clear to auscultation bilaterally Auscultation: Negative for rales, rhonchi or wheezes Cardio regular rate, regular rhythm, no murmurs, no rub and no gallops GI normal to inspection, nondistended, normoactive bowel sounds, soft to palpation,non-tender and non-distended Extremity no clubbing, cyanosis or edema Skin Skin Narrative: Patient appears jaundiced Neuro oriented x3, CN's II-XII intact bilaterally, moves all extremities, no focal motor deficits and no sensory deficits noted Sensorium / Orientation: awake and alert Speech: speech normal Psych affect normal Assessment & Plan Assessment/Plan (1) Pancreatic mass: PLAN: Plan 1. Pancreatic mass-suspicious for pancreatic cancer, patient is awaiting a bed in [facility] for further care #2 obstructive jaundice secondary to #1-complicates care, management, recovery, and prognosis #3 type 2 diabetes-patient is receiving sliding scale insulin per fingerstick blood sugars #4 essential hypertension-patient is on Cozaar and metoprolol, blood pressure will be monitored Total clinical time spent by myself addressing the patient's medical issues, reviewing all of her data, and collaborating with patient's care team: 35 minutes Charges/Coding Visit Charges Inpatient E&M: 10210 Subs Hosp L2 01/11/25 1540 Cosigner Signature (if applicable): CC: ~ Signed [facility]03-16-2025 Progress note Author Keenan Celeste [facility] Note Date/Time January 10, 2025 11: 47am [facility] Medical Records Department [address] [place] [address] Progress Note - Hospitalist 01/10/25 0741 MR#: [id number] Acct: [id number] Name: TELMA TINEO Rep #:[id number] : 1940 84 From: Keenan Celeste DO PCP: Dr. Henok Martinez MD Status:ADM I N Location: [place] [address]1 Reason for Visit Reason for Visit: Diagnoses Type 2 diabetes mellitus with hyperglycemia (01/10/25) Overweight (01/10/25) Other disorders of bilirubin metabolism (01/10/25) Chronic atrial fibrillation, unspecified (01/10/25) Other specified diseases of pancreas (01/10/25) Unspecified jaundice (01/10/25) Elevation of levels of liver transaminase levels (01/10/25) Personal history of malignant neoplasm of other parts of uterus (01/10/25) Acquired absence of both cervix and uterus (01/10/25) Subjective Subjective Feeling well. Never had any abdominal pain. Objective Data Objective Data Vital Signs: Vital Signs Temp Pulse Resp BP Pulse Ox O2 Del Method 36.3 C L 88 18 151/93 H 98 Room Air 01/10/25 02:38 01/10/25 02:38 01/10/25 02:38 01/10/25 02:38 01/10/25 02:38 01/10/25 02:38 Oxygen Delivery Method Room Air Weight: 66.7 kg Body Mass Index (BMI) 28.7 Intake & Output: Intake and Output for Last 24 Hours 01/08/25 01/09/25 01/10/25 23:59 23:59 23:59 Intake Total 110 / 110 Balance 110 / 110 Lab / Micro Data 01/10/25 05:19 01/10/25 05:19 Labs: Laboratory Results - last 24 hr 01/09/25 19:21: WBC 6.4, RBC 4.26, Hgb 12.6, Hct 37.4, MCV 87.8, MCH 29.6, MCHC 33.7, RDW Std Deviation 47.2 H, RDW Coeff of [place] 14.6, Plt Count 171, MPV 13.7 H, Immature Gran % (Auto) 0.300, Neut % (Auto) 65.7, Lymph % (Auto) 21.5, [place] % (Auto) 10.8 H, Eos % (Auto) 1.1, Baso % (Auto) 0.6, Absolute Neuts (auto) 4.2, Absolute Lymphs (auto) 1.37, Nucleated RBC % 0, PT 12.8, INR 1.0, APTT 26.1, Sodium 132 L, Potassium 3.8, Chloride 98, Carbon Dioxide 20.3 L, Anion Gap 14, BUN 11, Creatinine 0.81, Estim Creat Clear Calc 44.58 L, Est GFR (MDRD) Non-Af 71, BUN/Creatinine Ratio 14.0, Glucose 418 H, Calcium 9.9, Magnesium 1.9, Total Bilirubin 9.78 H, Direct Bilirubin 7.64 H, AST 308 H, ALT 390 H, Alkaline Phosphatase 416 H, Total Protein 7.3, Albumin 4.2, Globulin 3.1, Lipase 224 H 01/10/25 05:19: WBC 6.4, RBC 4.00 L, Hgb 12.0, Hct 35.0 L, MCV 87.5, MCH 30.0, MCHC 34.3, RDW Std Deviation 47.3 H, RDW Coeff of [place] 14.7 H, Plt Count 167, MPV13.5 H, Immature Gran % (Auto) 0.200, Neut % (Auto) 66.7, Lymph % (Auto) 19.4, [place] % (Auto) 12.1 H, Eos % (Auto) 1.1, Baso % (Auto) 0.5, Absolute Neuts (auto) 4.3, Absolute Lymphs (auto) 1.24, Nucleated RBC % 0, Sodium 134, Potassium 3.4, Chloride 101, Carbon Dioxide 17.3 L, Anion Gap 16 H, BUN 9, Creatinine 0.65 L, Estim Creat Clear Calc 44.61 L, Est GFR (MDRD) Non-Af 87, BUN/Creatinine Ratio 13.6, Glucose 371 H, Calcium 9.4, Phosphorus 2.9, Total Bilirubin 8.88 H, AST 286 H, ALT 367 H, Alkaline Phosphatase 374 H, Total Protein 6.6, Albumin 3.8, Globulin 2.7, Albumin/Globulin Ratio 1.4, Triglycerides 130, Cholesterol 159, LDL Cholesterol, Calc 78, VLDL Cholesterol 26, HDL Cholesterol 55, Cholesterol/HDL Ratio 2.91, TSH 2.180 Radiography Diagnostic Testing: Radiology Impression Abdomen/Pelvis CT 01/09/25 18:57 IMPRESSION: 1. Dilated hepatic and pancreatic bile ducts. An area of hypoattenuation in the head of the pancreas. These findings are concerning for pancreatic carcinoma. 2. Mild hepatocellular disease. 3. Markedly distended/hydropic gallbladder. 4. Other nonacute findings detailed above. Reading Location: [place] Physical Exam Const alert and no apparent distress Eyes Eyes Narrative: icterus. Resp normal respiratory effort, no retractions, no use of accessory muscles and clearto auscultation bilaterally Cardio regular rate, regular rhythm, S1 normal heart sound and S2 normal heart sound GI normal to inspection, nondistended, normoactive bowel sounds, soft to palpation,non-tender and non-distended Extremity normal to inspection and full ROM Assessment & Plan Assessment/Plan (1) Pancreatic mass: PLAN: CT showed dilated hepatic and pancreatic bile ducts. An area of hypoattenuation in the head of the pancreas. Associated with hyperbilirubinemia 8.88, transaminitis (AST 286, ALT 367). Concerning for malignancy. CA 19-9 sent off. GI consult. ERCP v perc biopsy v surgery, e.g., Whipple (no obvious hepatic lesions, nor lymphadenopathy per CT report) Advance diet. Awaiting on transfer to [facility]. PLAN: Plan DM2: * uncontrolled: * check a1c * SSI. * hold metformin as pt received IV contrast. HTN: stable. Continue metoprolol, losartan, amlodipine. VTE prophylaxis: enoxaparin. Charges/Coding Visit Charges Inpatient E&M: 56728 Subs Hosp L2 01/10/25 1147 <Electronically signed by Keenan Celeste DO> Cosigner Signature (if applicable): CC: ~ Signed [facility] Work Phone: [phone] 496-250403-16-2025 Progress note [facility] Medical Records Department [address] [place] [address] Progress Note - Hospitalist 01/10/25 0741 MR#: [id number] Acct: [id number] Name: TELMA TINEO Rep #:[id number] : 1940 84 From: Keenan Celeste DO PCP: Dr. Henok Martinez MD Status:ADM I N Location: [place] [address] Reason for Visit Reason for Visit: Diagnoses Type 2 diabetes mellitus with hyperglycemia (01/10/25) Overweight (01/10/25) Other disorders of bilirubin metabolism (01/10/25) Chronic atrial fibrillation, unspecified (01/10/25) Other specified diseases of pancreas (01/10/25) Unspecified jaundice (01/10/25) Elevation of levels of liver transaminase levels (01/10/25) Personal history of malignant neoplasm of other parts of uterus (01/10/25) Acquired absence of both cervix and uterus (01/10/25) Subjective Subjective Feeling well. Never had any abdominal pain. Objective Data Objective Data Vital Signs: Vital Signs Temp Pulse Resp BP Pulse Ox O2 Del Method 36.3 C L 88 18 151/93 H 98 Room Air 01/10/25 02:38 01/10/25 02:38 01/10/25 02:38 01/10/25 02:38 01/10/25 02:38 01/10/25 02:38 Oxygen Delivery Method Room Air Weight: 66.7 kg Body Mass Index (BMI) 28.7 Intake & Output: Intake and Output for Last 24 Hours 01/08/25 01/09/25 01/10/25 23:59 23:59 23:59 Intake Total 110 / 110 Balance 110 / 110 Lab / Micro Data 01/10/25 05:19 01/10/25 05:19 Labs: Laboratory Results - last 24 hr 01/09/25 19:21: WBC 6.4, RBC 4.26, Hgb 12.6, Hct 37.4, MCV 87.8, MCH 29.6, MCHC 33.7, RDW Std Deviation 47.2 H, RDW Coeff of [place] 14.6, Plt Count 171, MPV 13.7 H, Immature Gran % (Auto) 0.300, Neut % (Auto) 65.7, Lymph % (Auto) 21.5, [place] % (Auto) 10.8 H, Eos % (Auto) 1.1, Baso % (Auto) 0.6, Absolute Neuts (auto) 4.2, Absolute Lymphs (auto) 1.37, Nucleated RBC % 0, PT 12.8, INR 1.0, APTT 26.1, Sodium 132 L, Potassium 3.8, Chloride 98, Carbon Dioxide 20.3 L, Anion Gap 14, BUN 11, Creatinine 0.81,Estim Creat Clear Calc 44.58 L, Est GFR (MDRD) Non-Af 71, BUN/Creatinine Ratio 14.0, Glucose 418 H,Calcium 9.9, Magnesium 1.9, Total Bilirubin 9.78 H, Direct Bilirubin 7.64 H, AST 308 H, ALT 390 H, Alkaline Phosphatase 416 H, Total Protein 7.3, Albumin 4.2, Globulin 3.1, Lipase 224 H 01/10/25 05:19: WBC 6.4, RBC 4.00 L, Hgb 12.0, Hct 35.0 L, MCV 87.5, MCH 30.0, MCHC 34.3, RDW Std Deviation 47.3 H, RDW Coeff of [place] 14.7 H, Plt Count 167, MPV13.5 H, Immature Gran % (Auto) 0.200, Neut % (Auto) 66.7, Lymph % (Auto) 19.4, [place] % (Auto) 12.1 H, Eos % (Auto) 1.1, Baso % (Auto) 0.5, Absolute Neuts (auto) 4.3, Absolute Lymphs (auto) 1.24, Nucleated RBC % 0, Sodium 134, Potassium 3.4, Chloride 101, Carbon Dioxide 17.3 L, Anion Gap 16 H, BUN 9, Creatinine 0.65 L, Estim Creat Clear Calc 44.61 L, Est GFR (MDRD) Non-Af 87, BUN/Creatinine Ratio 13.6, Glucose 371 H, Calcium 9.4, Phosphorus 2.9, Total Bilirubin 8.88 H, AST 286 H, ALT 367 H, Alkaline Phosphatase 374 H, Total Protein 6.6,Albumin 3.8, Globulin 2.7, Albumin/Globulin Ratio 1.4, Triglycerides 130, Cholesterol 159, LDL Cholesterol, Calc 78, VLDL Cholesterol 26, HDL Cholesterol 55, Cholesterol/HDL Ratio 2.91, TSH 2.180 Radiography Diagnostic Testing: Radiology Impression Abdomen/Pelvis CT 01/09/25 18:57 IMPRESSION: 1. Dilated hepatic and pancreatic bile ducts. An area of hypoattenuation in the head of the pancreas. These findings are concerning for pancreatic carcinoma. 2. Mild hepatocellular disease. 3. Markedly distended/hydropic gallbladder. 4. Other nonacute findings detailed above. Reading [facility] Physical Exam Const alert and no apparent distress Eyes Eyes Narrative: icterus. Resp normal respiratory effort, no retractions, no use of accessory muscles and clearto auscultation bilaterally Cardio regular rate, regular rhythm, S1 normal heart sound and S2 normal heart sound GI normal to inspection, nondistended, normoactive bowel sounds, soft to palpation,non-tender and non-distended Extremity normal to inspection and full ROM Assessment & Plan Assessment/Plan (1) Pancreatic mass: PLAN: CT showed dilated hepatic and pancreatic bile ducts. An area of hypoattenuation in the head of the pancreas. Associated with hyperbilirubinemia 8.88, transaminitis (AST 286, ALT 367). Concerning for malignancy. CA 19-9 sent off. GI consult. ERCP v perc biopsy v surgery, e.g., Whipple (no obvious hepatic lesions, nor lymphadenopathy per CTreport) Advance diet. Awaiting on transfer to [facility]. PLAN: Plan DM2: * uncontrolled: * check a1c * SSI. * hold metformin as pt received IV contrast. HTN: stable. Continue metoprolol, losartan, amlodipine. VTE prophylaxis: enoxaparin. Charges/Coding Visit Charges Inpatient E&M: 61318 Subs Hosp L2 01/10/25 1147 Cosigner Signature (if applicable): CC: ~ Signed [facility]03-16-2025 History and physical note Author Oniel Hernandez [facility] Note Date/Time January 10, 2025 6:5 7am [facility] Medical Records Department [address] [place] [address] H&P Exam - Hospitalist 01/10/25 0039 MR#: [id number] Acct: [id number] Name: TELMA TINEO Rep #:[id number] : 1940 84 From: Oniel Rojas DO PCP: Dr. Henok Martinez MD Status:ADM I N Location: [facility] [place] [id number] HPI - General General Date of Admission: 01/10/25 Date of Service: 01/10/25 Chief Complaint: Jaundice. HPI Narrative TELMA TINEO, is a 84 F with a past medical history of essential hypertension; on losartan, metoprolol and amlodipine, hyperlipidemia; on atorvastatin, overweight; with BMI of 29.4 this admission, remote history of tobacco abuse (quit 50+ years ago), DM-2; on metformin, chronic atrial fibrillation; on apixaban, history of TIA/CVA x 2, mild cognitive impairment, history of Lundberg's palsy, history of Right atrial mass, history of asthma, history of appendectomy,history of cancer, history of anoplasty, history of bladder surgery, history of hemorrhoidectomy, history of hysterectomy, history of blood transfusion, GERD; on pantoprazole and OA; with chronic neck pain who presents to [facility] ER complaining of jaundice. Ms. Tineo reports her symptoms began approximately 1 week prior to admission when she began to turn yellow, her urine turned orange and her stools turned white. She admits to associated nausea and generalized weakness and made it hard for her to complete her daily tasks. She denies vomiting, history of recent alcohol use, previous alcohol abuse or similar previous episodes. Her grandson informed the ER physician that she had stopped taking a few of her medications a few days ago and effort to try to improve her symptoms but no improvement was noted. Unfortunately, her jaundice has continued to worsen and she decided to come in for further evaluation and treatment. She also denies related fever, chills, chest pain, palpitations, heart racing, shortness of breath or headache. In the ER she was noted to have CT evidence of dilated hepatic and pancreatic ducts with an area of hypoattenuation in the head of the pancreas concerning for Pancreatic Carcinoma with additional evidence of mild hepatocellular disease with a markedly distended/hydropic gallbladder with corresponding laboratory evidence of Severe Hyperbilirubinemia; with total bilirubin of 9.78 mg/dL and direct bilirubin of 7.64 mg/dL in addition to Transaminitis; with AST of 308 units/L, ALT of 390 units/L and alkaline phosphatase of 416 units/L plus elevated lipase of 224 units/L suggestive of possible early pancreatitis with Hyperglycemia of 418 mg/dL all present on admission. She was then arranged for transfer to [facility] with bed not available at this time so the ER physician is contacted the hospitalist service to admit this patient until such time she can be safely transferred as per the policy of this hospital. She was then admitted to the general medical floor for ongoing care for stay that is expected to extend beyond 2 midnights. [facility] Medical History (Updated 01/10/25 @ 02:[address] Oniel Golden, DO) Neck pain, bilateral History of TIA (transient ischemic attack) Stroke/cerebrovascular accident Essential hypertension Complaint of melena Transient ischemic attack (03/2021) History of Lundberg's palsy GERD (gastroesophageal reflux disease) History of cancer History of blood transfusion Right atrial mass Former smoker Asthma Diabetes mellitus, type 2 Home Medications ?Medication ?Instructions ?Recorded ?Last Taken ?Type multivitamin 1 tab PO DAILY 06/19/21 Unkn own History pantoprazole 40 mg tablet,delayed 40 mg PO DAILY gerd #90 tabs 08/28/21 Unknown Rx release metformin 500 mg tablet 500 mg PO BID 02/15/22 Unkno wn History atorvastatin 20 mg tablet 20 mg PO QHS 03/07/23 Unknow n History losartan 100 mg tablet 100 mg PO DAILY 03/07/23 Unk nown History metoprolol tartrate 50 mg tablet 50 mg PO BID 11/21/23 Unknown History benzocaine 15 mg-menthol 2.6 mg 1 cee mucous membrane Q2H PRN sore 02/25/24 Unknown Rx lozenges (Cepacol Sore Throat throat #16 ea (benzocaine-menthol)) apixaban 5 mg tablet 5 mg PO BID #180 tabs Unknown Rx amlodipine 10 mg tablet 10 mg PO DAILY #90 tabs 10/28 02/19 Unknown Rx Allergy/AdvReac Type Severity Reaction Status Date / Time Penicillins Allergy Severe Anaphylaxis Verified 01/09/25 19:02 tetracycline Allergy Severe anaphylaxis Verified 01/09/25 19:02 tramadol (From Ultram) AdvReac Severe syncope Verified 01/09/25 21:02 Family History Mother Pancreatic cancer CAD (coronary artery disease) Father Cancer Lung cancer Brother Parkinson disease Surgical History (Updated 01/10/25 @ 02:[address] Oniel Golden DO) History of surgery H/O: hysterectomy H/O hemorrhoidectomy History of bladder surgery H/O rhinoplasty History of cataract surgery History of appendectomy Social History Smoking Status: Former smoker how long ago did patient quit smokin+ years alcohol intake: never substance use type: does not use ROS ROS Narrative Review of Systems: Constitutional: Patient denies fever or chills. Eyes: Patient admits to yellowing of eyes but she denies changes in vision or discharge from eyes. ENT: Patient denies runny nose, sore throat or ear pain. Resp: Patient denies shortness of breath or cough. CV: Patient denies chest pain, palpitations, heart racing or lower extremity edema. GI: Patient admits to nausea but she denies vomiting, abdominal pain, diarrhea or constipation. : Patient denies dysuria or hematuria. MSK: Patient denies arthralgias or myalgias. Skin: Patient admits to severe jaundice but she denies rash, pruritus, abscess or wounds. Psych: Patient denies symptoms of uncontrolled depression or anxiety. Neuro: Patient denies headache, paresthesias or focal neurologic deficits. Hematology: Patient denies easy bleeding or easy bruisability. Endocrinology: Patient denies polyuria, polydipsia or polyphagia. 14 point ROS otherwise negative save for positives noted above in HPI. Vital Signs Vital Signs Vital Signs: 01/09/25 18:39 01/09/25 18:51 01/09/25 20:39 Temperature 97.8 F Temperature Source Oral Pulse Rate 103 H 82 Respiratory Rate 18 20 H Respiratory Effort Normal Respiratory Pattern Normal Blood Pressure 130/95 H 177/87 H Blood Pressure Mean 106 117 Pulse Ox 99 97 Oxygen Delivery Method Room Air Room Air 01/09/25 22:00 Temperature Temperature Source Pulse Rate 80 Respiratory Rate 22 H Respiratory Effort Respiratory Pattern Blood Pressure 179/108 H Blood Pressure Mean 131 Pulse Ox 94 Oxygen Delivery Method Room Air Weight Weight: 150 lb 9.211 oz Body Mass Index (BMI) 29.4 Physical Exam Const alert, oriented x3, no apparent distress and average body habitus Constitutional Narrative: Patient is severely jaundiced. General Appearance: cooperative HEENT normocephalic, head/scalp atraumatic, hearing grossly normal bilaterally and moist oral mucous membranes Eyes PERRL and EOMs intact bilaterally Neck no lymphadenopathy and supple Resp normal respiratory effort, no retractions, no use of accessory muscles and clearto auscultation bilaterally Cardio regular rate and regular rhythm GI normal to inspection, nondistended, normoactive bowel sounds, soft to palpation,non-tender and non-distended Extremity normal to inspection, full ROM and no clubbing, cyanosis or edema Skin Skin Narrative: Patient is severely jaundiced. Neuro oriented x3, CN's II-XII intact bilaterally, moves all extremities and no focal motor deficits Sensorium / Orientation: awake, alert, oriented to person, oriented to place andoriented to time Speech: speech normal Psych affect normal Results Medical Records Data Attestation: I reviewed the patient's medical records Lab / Micro Data Attestation: I reviewed the patient's lab results. 01/10/25 05:19 01/09/25 19:21 Labs: Laboratory Results - last 24 hr 01/09/25 19:21: WBC 6.4, RBC 4.26, Hgb 12.6, Hct 37.4, MCV 87.8, MCH 29.6, MCHC 33.7, RDW Std Deviation 47.2 H, RDW Coeff of Colton 14.6, Plt Count 171, MPV 13.7 H, Immature Gran % (Auto) 0.300, Neut % (Auto) 65.7, Lymph % (Auto) 21.5, [place] % (Auto) 10.8 H, Eos % (Auto) 1.1, Baso % (Auto) 0.6, Absolute Neuts (auto) 4.2, Absolute Lymphs (auto) 1.37, Nucleated RBC % 0, PT 12.8, INR 1.0, APTT 26.1, Sodium 132 L, Potassium 3.8, Chloride 98, Carbon Dioxide 20.3 L, Anion Gap 14, BUN 11, Creatinine 0.81, Estim Creat Clear Calc 44.58 L, Est GFR (MDRD) Non-Af 71, BUN/Creatinine Ratio 14.0, Glucose 418 H, Calcium 9.9, Total Bilirubin 9.78 H, Direct Bilirubin 7.64 H, AST 308 H, ALT 390 H, Alkaline Phosphatase 416 H, Total Protein 7.3, Albumin 4.2, Globulin 3.1, Lipase 224 H Imaging Radiology Impression Abdomen/Pelvis CT 01/09/25 18:57 IMPRESSION: 1. Dilated hepatic and pancreatic bile ducts. An area of hypoattenuation in the head of the pancreas. These findings are concerning for pancreatic carcinoma. 2. Mild hepatocellular disease. 3. Markedly distended/hydropic gallbladder. 4. Other nonacute findings detailed above. Reading Location: [facility] Assessment & Plan Assessment/Plan (1) Mass of head of pancreas: (2) Jaundice: (3) Hyperbilirubinemia: (4) Transaminitis: (5) Type 2 diabetes mellitus with hyperglycemia: QUALIFIERS: Diabetes mellitus correction insulin use: without termite control representative use Qualified Code(s): E11.65 - Type 2 diabetes mellitus with hyperglycemia (6) Overweight (BMI 25.0-29.9): (7) History of uterine cancer: (8) H/O: hysterectomy: (9) Atrial fibrillation: QUALIFIERS: Atrial fibrillation type: unspecified chronic Qualified Code(s): I48.20 - Chronic atrial fibrillation, unspecified PLAN: Plan 1. CT evidence of dilated hepatic and pancreatic ducts with an area of hypoattenuation in the head of the pancreas concerning for Pancreatic Carcinoma with additional evidence of mild hepatocellular disease with a markedly distended/hydropic gallbladder - Admit to general medical floor until a bed is available at [facility]. Place on clear liquid diet. Start pantoprazole 40 mg IV daily. Give ondansetron IV as needed nausea and vomiting. Give ketorolac IV as needed [id number] (level 1-5/10) pain or fever. Give morphine IV as needed for severe (level 6-10/10) pain. Finally, CA 19-9 level is pending at this time to confirm suspicion. Finally, we will consult gastroenterology to see this patient on rounds in a.m. for further recommendations with help appreciated in advance. 2. Jaundice with Severe Hyperbilirubinemia; with total bilirubin of 9.78 mg/dL and direct bilirubin of 7.64 mg/dL due to #1 - Check CMP daily to follow trend. 3. Transaminitis; with AST of 308 units/L, ALT of 390 units/L and alkaline phosphatase of 416 units/L complicating #1 & #2 - Follow daily levels. 4. DM-2; uncontrolled with Hyperglycemia of 418 mg/dL present on admission on metformin adding to the medical complexity #1 - #3 - Patient on clear liquid diet. FSBS q. AC/HS plus lowest intensity SSI. Check HgbA1c to objectively evaluate quality of diabetic control. 5. Overweight; with BMI of 29.4 this admission adding to the burden of disease outlined from #1 - #4 - Weight loss will be recommended. Check TSH. 6. History of Uterine cancer; s/p hysterectomy - Noted. 7. Chronic atrial fibrillation; on apixaban - Hold apixaban with impending pancreatic biopsy. 8. Essential hypertension; on losartan, metoprolol and amlodipine - Continue home regimen as before plus give prn hydralazine IV for systolic blood pressure > 160 mmHg. 9. Hyperlipidemia; on atorvastatin - Hold statin with transaminitis noted on admission in #3. Check Lipid Profile. 10. Remote history of tobacco abuse (quit 50+ years ago) - Noted. 11. History of TIA/CVA x 2 - Noted. 12. Mild cognitive impairment - Stable. 13. History of Lundberg's palsy - Noted. 14. History of Right atrial mass - Noted. 15. History of asthma - Stable with no evidence of acute flare at this time. Continue prn nebulizers. 16. History of appendectomy - Noted. 17. History of anoplasty - Noted. 18. History of bladder surgery - Noted. 19. History of hemorrhoidectomy - Noted. 20. History of blood transfusion - Noted. 21. GERD; on pantoprazole - Patient on PPI IV for #1. 22. OA; with chronic neck pain - Give acetaminophen prn according to pain scaleoutlined in #1. 23. DVT prophylaxis - Lovenox 40 mg sq daily plus SCD's. Hold LMWH once a bed opens up. Total time: Approximately (but not less than) 75 minutes. Charges/Coding Visit Charges Inpatient E&M: 31148 Init Hosp L3 01/10/25 0657 <Electronically signed by Oniel Golden DO> Cosigner Signature (if applicable): CC: Dr. Oniel Golden DO; Dr. Henok Martinez MD~ Signed [facility] Work Phone: [phone] [phone] History and physical note [facility] Medical Records Department [address] [place] [id number] H&P Exam - Hospitalist 01/10/25 0039 MR#: [id number] Acct: [id number] Name: TELMA TINEO Rep #:[id number] : 1940 84 From: Oniel Rojas DO PCP: Dr. Henok Martinez MD Status:ADM I N Location[place] [facility] [id number] HPI - General General Date of Admission: 01/10/25 Date of Service: 01/10/25 Chief Complaint: Jaundice. HPI Narrative TELMA TINEO, is a 84 F with a past medical history of essential hypertension; on losartan, metoprolol and amlodipine, hyperlipidemia; on atorvastatin, overweight; with BMI of 29.4 this admission, remote history of tobacco abuse (quit 50+ years ago), DM-2; on metformin, chronic atrial fibrillation;on apixaban, history of TIA/CVA x 2, mild cognitive impairment, history of Lundberg's palsy, history ofRight atrial mass, history of asthma, history of appendectomy,history of cancer, history of anoplasty, history of bladder surgery, history of hemorrhoidectomy, history of hysterectomy, history of blood transfusion, GERD; on pantoprazole and OA; with chronic neck pain who presents to [facility] ER complaining of jaundice. Ms. Tineo reports her symptoms began approximately 1 week prior to admission when she began to turn yellow, her urine turned orange and her stools turned white. She admits to associated nausea and generalized weakness and made it hard for her to complete her daily tasks. She denies vomiting, history of recent alcohol use, previous alcohol abuse or similar previous episodes. Her grandson informedthe ER physician that she had stopped taking a few of her medications a few days ago and effort to try to improve her symptoms but no improvement was noted. Unfortunately, her jaundice has continued to worsen and she decided to come in for further evaluation and treatment. She also denies related fever, chills, chest pain, palpitations, heart racing, shortness of breath or headache. In the ER shewas noted to have CT evidence of dilated hepatic and pancreatic ducts with an area of hypoattenuation in the head of the pancreas concerning for Pancreatic Carcinoma with additional evidence of mild hepatocellular disease with a markedly distended/hydropic gallbladder with corresponding laboratory e vidence of Severe Hyperbilirubinemia; with total bilirubin of 9.78 mg/dL and direct bilirubin of 7.64 mg/dL in addition to Transaminitis; with AST of 308 units/L, ALT of 390 units/L and alkaline phosphatase of 416 units/L plus elevated lipase of 224 units/L suggestive of possible early pancreatitiswith Hyperglycemia of 418 mg/dL all present on admission. She was then arranged for transfer to [facility] with bed not available at this time so the ER physician is contacted the hospitalist service to admit this patient until such time she can be safely transferred as per the policy of this hospital. She was then admitted to the general medical floor for ongoing care for stay that is expected to extend beyond 2 midnights. [facility] Medical History (Updated 01/10/25 @ 02:[address] Oniel Golden, DO) Neck pain, bilateral History of TIA (transient ischemic attack) Stroke/cerebrovascular accident Essential hypertension Complaint of melena Transient ischemic attack (03/2021) History of Lundberg's palsy GERD (gastroesophageal reflux disease) History of cancer History of blood transfusion Right atrial mass Former smoker Asthma Diabetes mellitus, type 2 Home Medications ?Medication ?Instructions ?Recorded ?Last Taken ?Type multivitamin 1 tab PO DAILY 06/19/21 Unkn own History pantoprazole 40 mg tablet,delayed 40 mg PO DAILY gerd #90 tabs 08/28/21 Unknown Rx release metformin 500 mg tablet 500 mg PO BID 02/15/22 Unkno wn History atorvastatin 20 mg tablet 20 mg PO QHS 03/07/23 Unknow n History losartan 100 mg tablet 100 mg PO DAILY 03/07/23 Unk nown History metoprolol tartrate 50 mg tablet 50 mg PO BID 11/21/23 Unknown History benzocaine 15 mg-menthol 2.6 mg 1 cee mucous membrane Q2H PRN sore 02/25/24 Unknown Rx lozenges (Cepacol Sore Throat throat #16 ea (benzocaine-menthol)) apixaban 5 mg tablet 5 mg PO BID #180 tabs Unknown Rx amlodipine 10 mg tablet 10 mg PO DAILY #90 tabs 10/28 02/19 Unknown Rx Allergy/AdvReac Type Severity Reaction Status Date / Time Penicillins Allergy Severe Anaphylaxis Verified 01/09/25 19:02 tetracycline Allergy Severe anaphylaxis Verified 01/09/25 19:02 tramadol (From Ultram) AdvReac Severe syncope Verified 01/09/25 21:02 Family History Mother Pancreatic cancer CAD (coronary artery disease) Father Cancer Lung cancer Brother Parkinson disease Surgical History (Updated 01/10/25 @ 02:[address] Oniel Golden DO) History of surgery H/O: hysterectomy H/O hemorrhoidectomy History of bladder surgery H/O rhinoplasty History of cataract surgery History of appendectomy Social History Smoking Status: Former smoker how long ago did patient quit smokin+ years alcohol intake: never substance use type: does not use ROS ROS Narrative Review of Systems: Constitutional: Patient denies fever or chills. Eyes: Patient admits to yellowing of eyes but she denies changes in vision or discharge from eyes. ENT: Patient denies runny nose, sore throat or ear pain. Resp: Patient denies shortness of breath or cough. CV: Patient denies chest pain, palpitations, heart racing or lower extremity edema. GI: Patient admits to nausea but she denies vomiting, abdominal pain, diarrhea or constipation. : Patient denies dysuria or hematuria. MSK: Patient denies arthralgias or myalgias. Skin: Patient admits to severe jaundice but she denies rash, pruritus, abscess or wounds. Psych: Patient denies symptoms of uncontrolled depression or anxiety. Neuro: Patient denies headache, paresthesias or focal neurologic deficits. Hematology: Patient denies easy bleeding or easy bruisability. Endocrinology: Patient denies polyuria, polydipsia or polyphagia. 14 point ROS otherwise negative save for positives noted above in HPI. Vital Signs Vital Signs Vital Signs: 01/09/25 18:39 01/09/25 18:51 01/09/25 20:39 Temperature 97.8 F Temperature Source Oral Pulse Rate 103 H 82 Respiratory Rate 18 20 H Respiratory Effort Normal Respiratory Pattern Normal Blood Pressure 130/95 H 177/87 H Blood Pressure Mean 106 117 Pulse Ox 99 97 Oxygen Delivery Method Room Air Room Air 01/09/25 22:00 Temperature Temperature Source Pulse Rate 80 Respiratory Rate 22 H Respiratory Effort Respiratory Pattern Blood Pressure 179/108 H Blood Pressure Mean 131 Pulse Ox 94 Oxygen Delivery Method Room Air Weight Weight: 150 lb 9.211 oz Body Mass Index (BMI) 29.4 Physical Exam Const alert, oriented x3, no apparent distress and average body habitus Constitutional Narrative: Patient is severely jaundiced. General Appearance: cooperative HEENT normocephalic, head/scalp atraumatic, hearing grossly normal bilaterally and moist oral mucous membranes Eyes PERRL and EOMs intact bilaterally Neck no lymphadenopathy and supple Resp normal respiratory effort, no retractions, no use of accessory muscles and clearto auscultation bilaterally Cardio regular rate and regular rhythm GI normal to inspection, nondistended, normoactive bowel sounds, soft to palpation,non-tender and non-distended Extremity normal to inspection, full ROM and no clubbing, cyanosis or edema Skin Skin Narrative: Patient is severely jaundiced. Neuro oriented x3, CN's II-XII intact bilaterally, moves all extremities and no focal motor deficits Sensorium / Orientation: awake, alert, oriented to person, oriented to place andoriented to time Speech: speech normal Psych affect normal Results Medical Records Data Attestation: I reviewed the patient's medical records Lab / Micro Data Attestation: I reviewed the patient's lab results. 01/10/25 05:19 01/09/25 19:21 Labs: Laboratory Results - last 24 hr 01/09/25 19:21: WBC 6.4, RBC 4.26, Hgb 12.6, Hct 37.4, MCV 87.8, MCH 29.6, MCHC 33.7, RDW Std Deviation 47.2 H, RDW Coeff of Colton 14.6, Plt Count 171, MPV 13.7 H, Immature Gran % (Auto) 0.300, Neut % (Auto) 65.7, Lymph % (Auto) 21.5, [place] % (Auto) 10.8 H, Eos % (Auto) 1.1, Baso % (Auto) 0.6, Absolute Neuts (auto) 4.2, Absolute Lymphs (auto) 1.37, Nucleated RBC % 0, PT 12.8, INR 1.0, APTT 26.1, Sodium 132 L, Potassium 3.8, Chloride 98, Carbon Dioxide 20.3 L, Anion Gap 14, BUN 11, Creatinine 0.81,Estim Creat Clear Calc 44.58 L, Est GFR (MDRD) Non-Af 71, BUN/Creatinine Ratio 14.0, Glucose 418 H,Calcium 9.9, Total Bilirubin 9.78 H, Direct Bilirubin 7.64 H, AST 308 H, ALT 390 H, Alkaline Phosphatase 416 H, Total Protein 7.3, Albumin 4.2, Globulin 3.1, Lipase 224 H Imaging Radiology Impression Abdomen/Pelvis CT 01/09/25 18:57 IMPRESSION: 1. Dilated hepatic and pancreatic bile ducts. An area of hypoattenuation in the head of the pancreas. These findings are concerning for pancreatic carcinoma. 2. Mild hepatocellular disease. 3. Markedly distended/hydropic gallbladder. 4. Other nonacute findings detailed above. Reading Location: [facility] Assessment & Plan Assessment/Plan (1) Mass of head of pancreas: (2) Jaundice: (3) Hyperbilirubinemia: (4) Transaminitis: (5) Type 2 diabetes mellitus with hyperglycemia: QUALIFIERS: Diabetes mellitus correction insulin use: without correction use Qualified Code(s): E11.65 - Type 2 diabetes mellitus with hyperglycemia (6) Overweight (BMI 25.0-29.9): (7) History of uterine cancer: (8) H/O: hysterectomy: (9) Atrial fibrillation: QUALIFIERS: Atrial fibrillation type: unspecified chronic Qualified Code(s): I48.20 - Chronic atrial fibrillation, unspecified PLAN: Plan 1. CT evidence of dilated hepatic and pancreatic ducts with an area of hypoattenuation in the head of the pancreas concerning for Pancreatic Carcinoma with additional evidence of mild hepatocellular disease with a markedly distended/hydropic gallbladder - Admit to general medical floor until a bed is available at [facility]. Place on clear liquid diet. Start pantoprazole 40 mg IV daily. Give ondansetron IV as needed nausea and vomiting. Give ketorolac IV as needed [id number] (level 1-5/10) pain or fever. Give morphine IV as needed for severe (level 6-10/10) pain. Finally, CA19-9 level is pending at this time to confirm suspicion. Finally, we will consult gastroenterology to see this patient on rounds in a.m. for further recommendations with help appreciated in advance. 2. Jaundice with Severe Hyperbilirubinemia; with total bilirubin of 9.78 mg/dL and direct bilirubinof 7.64 mg/dL due to #1 - Check CMP daily to follow trend. 3. Transaminitis; with AST of 308 units/L, ALT of 390 units/L and alkaline phosphatase of 416 units/L complicating #1 & #2 - Follow daily levels. 4. DM-2; uncontrolled with Hyperglycemia of 418 mg/dL present on admission on metformin adding to the medical complexity #1 - #3 - Patient on clear liquid diet. FSBS q. AC/HS plus lowest intensity SSI. Check HgbA1c to objectively evaluate quality of diabetic control. 5. Overweight; with BMI of 29.4 this admission adding to the burden of disease outlined from #1 - #4 - Weight loss will be recommended. Check TSH. 6. History of Uterine cancer; s/p hysterectomy - Noted. 7. Chronic atrial fibrillation; on apixaban - Hold apixaban with impending pancreatic biopsy. 8. Essential hypertension; on losartan, metoprolol and amlodipine - Continue home regimen as beforeplus give prn hydralazine IV for systolic blood pressure > 160 mmHg. 9. Hyperlipidemia; on atorvastatin - Hold statin with transaminitis noted on admission in #3. CheckLipid Profile. 10. Remote history of tobacco abuse (quit 50+ years ago) - Noted. 11. History of TIA/CVA x 2 - Noted. 12. Mild cognitive impairment - Stable. 13. History of Lundberg's palsy - Noted. 14. History of Right atrial mass - Noted. 15. History of asthma - Stable with no evidence of acute flare at this time. Continue prn nebulizers. 16. History of appendectomy - Noted. 17. History of anoplasty - Noted. 18. History of bladder surgery - Noted. 19. History of hemorrhoidectomy - Noted. 20. History of blood transfusion - Noted. 21. GERD; on pantoprazole - Patient on PPI IV for #1. 22. OA; with chronic neck pain - Give acetaminophen prn according to pain scaleoutlined in #1. 23. DVT prophylaxis - Lovenox 40 mg sq daily plus SCD's. Hold LMWH once a bed opens up. Total time: Approximately (but not less than) 75 minutes. Charges/Coding Visit Charges Inpatient E&M: 32473 Init Hosp 01/10/25 0657 Cosigner Signature (if applicable): CC: Dr. Oniel Golden DO; Dr. Henok Martinez MD~ Signed [facility]03-16-2025 Evaluation note* Diagnosis Onset Date Resolution Status Admit Date Atrial fibrillation acute January 10, 2025 2:16am Elevated lipase acute December 2:16am H/O: hysterectomy acute December 262024 2:16am History of uterine cancer acute January 10, 2025 2:16am Hyperbilirubinemia acute January 10, 2025 2:16am Jaundice acute January 10 2:16am Mass of head of pancreas acute January 10, 2025 2:16am Overweight (BMI 25.0-29.9) acute January 10, 2025 2:16am Pancreatic mass acute December 2:16am Transaminitis acute January 10, 2025 2:16am Type 2 diabetes mellitus wit h hyperglycemia acute January 10, 2025 2:16am [facility] Work Phone: 1(559) 574-510803-16-2025 Discharge summary Author Guille Garnica [facility] Note Date/Time January 09, 2025 10: 44pm [facility] Medical Records Department [address] [place] [address] Emergency Department Summary 01/09/25 MR#: [id number] Acct: [id number] Name: TELMA TINEO Rep #:[id number] : 1940 84 From: Guille Garnica MD PCP: Dr. Henok Martinez MD Status:REG E R Location: ED ADDENDUM by Dr. Hung Remy DO on 03/15/25 at 2244 Update 2245 hrs.: Patient was accepted at [facility]. They are stating it is unlikely that a bed will be assigned until at least tomorrow. Per hospital protocol we will wait 6 hours and then I will speak with the hospitalist regarding admission 01/09/252243<Electronically signed by Hung Remy DO> Cosigner Signature (if applicable): cc: Dr. Henok Martinez MD ~* Signed HPI History of Present Illness Chief Complaint: Abn Labs Narrative Narrative: 84-year-old female past medical history of hypertension, dysrhythmia, on blood thinners, presents with jaundice. She and her family states that she has been yellow for about a week. She is nauseated but not vomiting. She has dark urineand reid colored stools. She does not drink alcohol. She denies any exacerbating or alleviating factors but her grandson states that she has not taken some of her meds for the last few days. No fevers or chills. [facility] Medical History Neck pain, bilateral History of TIA (transient ischemic attack) Stroke/cerebrovascular accident Essential hypertension Complaint of melena Transient ischemic attack (03/2021) History of Lundberg's palsy GERD (gastroesophageal reflux disease) History of cancer History of blood transfusion Right atrial mass Former smoker Asthma Diabetes mellitus, type 2 Home Medications ?Medication ?Instructions ?Recorded ?Last Taken ?Type multivitamin 1 tab PO DAILY 06/19/21 Unkn own History pantoprazole 40 mg tablet,delayed 40 mg PO DAILY gerd #90 tabs 08/28/21 Unknown Rx release metformin 500 mg tablet 500 mg PO BID 02/15/22 Unkno wn History atorvastatin 20 mg tablet 20 mg PO QHS 03/07/23 Unknow n History losartan 100 mg tablet 100 mg PO DAILY 03/07/23 Unk nown History metoprolol tartrate 50 mg tablet 50 mg PO BID 11/21/23 Unknown History benzocaine 15 mg-menthol 2.6 mg 1 cee mucous membrane Q2H PRN sore 02/25/24 Unknown Rx lozenges (Cepacol Sore Throat throat #16 ea (benzocaine-menthol)) apixaban 5 mg tablet 5 mg PO BID #180 tabs Unknown Rx amlodipine 10 mg tablet 10 mg PO DAILY #90 tabs 10/28 02/19 Unknown Rx Allergy/AdvReac Type Severity Reaction Status Date / Time Penicillins Allergy Severe Anaphylaxis Verified 01/09/25 19:02 tetracycline Allergy Severe anaphylaxis Verified 01/09/25 19:02 tramadol (From Ultram) AdvReac Severe syncope Verified 01/09/25 21:02 Family History Mother Pancreatic cancer CAD (coronary artery disease) Father Cancer Lung cancer Brother Parkinson disease Surgical History History of surgery H/O: hysterectomy H/O hemorrhoidectomy History of bladder surgery H/O rhinoplasty History of cataract surgery History of appendectomy Social History Smoking Status: Former smoker how long ago did patient quit smokin+ years alcohol intake: never substance use type: does not use ROS ROS ED ROS Narrative Constitutional: No fever, no chills. HEENT: No sore throat. No neck pain. No loss of vision. No rhinorrhea. Cardiovascular: No chest pain. No palpitations. No pedal edema. Respiratory: No cough, no shortness of breath. Abdominal: No abdominal pain. Positive nausea. No vomiting. Genitourinary: No dysuria. No hematuria. Musculoskeletal: No myalgias. No arthralgias. Neurologic: No headaches. No dizziness. No lightheadedness. Skin: No rash. Positive yellow skin. No itching or pruritus. EXAM Physical Exam Narrative Exam Narrative: Afebrile. Vital signs noted. Nontoxic-appearing. HEENT examination reveals PERRL, EOMI, positive scleral icterus. Cardiovascular examination reveals mild tachycardia, occasionally irregular. Lungs are clear to auscultation bilaterally. Abdomen is soft and nontender without guarding or rebound. Positive bowel sounds. Neurological examination is nonfocal, nonlateralizing. No clonus. Skin examination does show diffuse jaundice especially in the face. Const Vital Signs: 01/09/25 18:39 01/09/25 18:51 01/09/25 20:39 Temperature 97.8 F Temperature Source Oral Pulse Rate 103 H 82 Respiratory Rate 18 20 H Respiratory Effort Normal Respiratory Pattern Normal Blood Pressure 130/95 H 177/87 H Blood Pressure Mean 106 117 Pulse Ox 99 97 Oxygen Delivery Method Room Air Room Air MDM MDM MDM Narrative Medical decision making narrative: Differential diagnosis includes but not limited to jaundice secondary to obstruction versus liver mass versus metastasis versus liver failure versus. Gallbladder pathology. I do feel imaging is indicated. I reviewed her laboratory work and she has normal white count of 6.4, wlyjyenzcf80.6, hematocrit 37.4, platelet count normal at 171. INR is normal at 1.0, APTT26.1. Sodium slightly low 132 with normal chloride of 98 and potassium 3.8. Total bilirubin elevated 9.78 with direct being 7.64 and elevated. AST of 308 and ALT 390. Alk phos is elevated at 416. Lipase slightly elevated to 24. I reviewed the radiology report of the CT of the abdomen and pelvis. Of most significance is a pancreatic mass at the head of the pancreas causing pancreaticand bile duct dilatation. She also has a distended/hydropic gallbladder. As there is concern for pancreatic carcinoma, I discussed patient with Dr. Cheung with general surgery who agrees with transfer to a tertiary care center. Patient and her family state that her primary care provider is through [facility]. They prefer [facility] As it is in closer proximity, and they are associated with the [facility]. I discussed patient with the transfer line. They are working on acceptance, but the patient will be signed out to as she is awaiting acceptance. Should they not have an available bed, patient will be discussed with the hospitalist for admission here. Disposition is transferred in stable condition. History & Record Review Discussion w/independent historian: Patient and Family Lab Data Attestation: I reviewed the patient's lab results. Labs: Laboratory Results - last 24 hr 01/09/25 19:21 WBC 6.4 RBC 4.26 Hgb 12.6 Hct 37.4 MCV 87.8 MCH 29.6 MCHC 33.7 RDW Std Deviation 47.2 H RDW Coeff of Colton 14.6 Plt Count 171 MPV 13.7 H Immature Gran % (Auto) 0.300 Neut % (Auto) 65.7 Lymph % (Auto) 21.5 [place] % (Auto) 10.8 H Eos % (Auto) 1.1 Baso % (Auto) 0.6 Absolute Neuts (auto) 4.2 Absolute Lymphs (auto) 1.37 Nucleated RBC % 0 PT 12.8 INR 1.0 APTT 26.1 Sodium 132 L Potassium 3.8 Chloride 98 Carbon Dioxide 20.3 L Anion Gap 14 BUN 11 Creatinine 0.81 Estim Creat Clear Calc 44.58 L Est GFR (MDRD) Non-Af 71 BUN/Creatinine Ratio 14.0 Glucose 418 H Calcium 9.9 Total Bilirubin 9.78 H Direct Bilirubin 7.64 H AST 308 H ALT 390 H Alkaline Phosphatase 416 H Total Protein 7.3 Albumin 4.2 Globulin 3.1 Lipase 224 H Radiography Diagnostic Testing: Clinical Impression(s) from Imaging Studies Abdomen/Pelvis CT 01/09/25 18:57 IMPRESSION: 1. Dilated hepatic and pancreatic bile ducts. An area of hypoattenuation in the head of the pancreas. These findings are concerning for pancreatic carcinoma. 2. Mild hepatocellular disease. 3. Markedly distended/hydropic gallbladder. 4. Other nonacute findings detailed above. Reading [facility] Plan Triage Chief Complaint: Abn Labs ED Provider: Guille Garnica Dx/Rx/DC Orders Clinical Impression: Mass of head of pancreas, Elevated lipase, Jaundice Prescriptions: No Action pantoprazole 40 mg tablet,delayed release (DR/EC) 40 mg PO DAILY Qty: 90 3RF multivitamin Tablet 1 tab PO DAILY metformin 500 mg tablet 500 mg PO BID metoprolol tartrate 50 mg tablet 50 mg PO BID losartan 100 mg tablet 100 mg PO DAILY atorvastatin 20 mg tablet 20 mg PO QHS Patient Comments: TAKE 1 TABLET BY MOUTH ONCE DAILY apixaban 5 mg tablet 5 mg PO BID Qty: 180 3RF Cepacol Sore Throat (janneth-men) 15-2.6 mg lozenge 1 cee mucous membrane Q2H PRN (Reason: sore throat) Qty: 16 0RF amlodipine 10 mg tablet 10 mg PO DAILY Qty: 90 3RF Primary Care Provider: Henok Martinez Referrals: Henok Martinez MD [Primary Care Provider] - Print Language: Martiniquais What to do if you have Problems For any increased pain, shortness of breath, bleeding, nausea or vomiting, chestpain, or any unexpected problems, contact your Primary Care Provider. Call [facility] ([phone]) or report to the closest Emergency Room. Call 911 if necessary. 01/09/252214 <Electronically signed by Guille Garnica MD> Cosigner Signature (if applicable): CC: Dr. Henok Martinez MD ~ Signed [facility] Work Phone: 1(659) 170-452503-16-2025 Discharge summary Author Guille Garnica [facility] Note Date/Time January 09, 2025 10: 44pm [facility] Medical Records Department [address] [place] [address] Emergency Department Summary 01/09/25 MR#: [id number] Acct: [id number] Name: TELMA TINEO Rep #:[id number] : 1940 84 From: Guille Garnica MD PCP: Dr. Henok Martinez MD Status:REG E R Location: ED ADDENDUM by Dr. Hung Remy DO on 01/09/25 at 2244 Update 2245 hrs.: Patient was accepted at [facility]. They are stating it is unlikely that a bed will be assigned until at least tomorrow. Per hospital protocol we will wait 6 hours and then I will speak with the hospitalist regarding admission 01/09/252243<Electronically signed by Hung Remy DO> Cosigner Signature (if applicable): cc: Dr. Henok Martinez MD ~* Signed HPI History of Present Illness Chief Complaint: Abn Labs Narrative Narrative: 84-year-old female past medical history of hypertension, dysrhythmia, on blood thinners, presents with jaundice. She and her family states that she has been yellow for about a week. She is nauseated but not vomiting. She has dark urineand reid colored stools. She does not drink alcohol. She denies any exacerbating or alleviating factors but her grandson states that she has not taken some of her meds for the last few days. No fevers or chills. [facility] Medical History Neck pain, bilateral History of TIA (transient ischemic attack) Stroke/cerebrovascular accident Essential hypertension Complaint of melena Transient ischemic attack (03/2021) History of Lundberg's palsy GERD (gastroesophageal reflux disease) History of cancer History of blood transfusion Right atrial mass Former smoker Asthma Diabetes mellitus, type 2 Home Medications ?Medication ?Instructions ?Recorded ?Last Taken ?Type multivitamin 1 tab PO DAILY 06/19/21 Unkn own History pantoprazole 40 mg tablet,delayed 40 mg PO DAILY gerd #90 tabs 08/28/21 Unknown Rx release metformin 500 mg tablet 500 mg PO BID 02/15/22 Unkno wn History atorvastatin 20 mg tablet 20 mg PO QHS 03/07/23 Unknow n History losartan 100 mg tablet 100 mg PO DAILY 03/07/23 Unk nown History metoprolol tartrate 50 mg tablet 50 mg PO BID 11/21/23 Unknown History benzocaine 15 mg-menthol 2.6 mg 1 cee mucous membrane Q2H PRN sore 02/25/24 Unknown Rx lozenges (Cepacol Sore Throat throat #16 ea (benzocaine-menthol)) apixaban 5 mg tablet 5 mg PO BID #180 tabs Unknown Rx amlodipine 10 mg tablet 10 mg PO DAILY #90 tabs 10/28 02/19 Unknown Rx Allergy/AdvReac Type Severity Reaction Status Date / Time Penicillins Allergy Severe Anaphylaxis Verified 01/09/25 19:02 tetracycline Allergy Severe anaphylaxis Verified 01/09/25 19:02 tramadol (From Ultram) AdvReac Severe syncope Verified 01/09/25 21:02 Family History Mother Pancreatic cancer CAD (coronary artery disease) Father Cancer Lung cancer Brother Parkinson disease Surgical History History of surgery H/O: hysterectomy H/O hemorrhoidectomy History of bladder surgery H/O rhinoplasty History of cataract surgery History of appendectomy Social History Smoking Status: Former smoker how long ago did patient quit smokin+ years alcohol intake: never substance use type: does not use ROS ROS ED ROS Narrative Constitutional: No fever, no chills. HEENT: No sore throat. No neck pain. No loss of vision. No rhinorrhea. Cardiovascular: No chest pain. No palpitations. No pedal edema. Respiratory: No cough, no shortness of breath. Abdominal: No abdominal pain. Positive nausea. No vomiting. Genitourinary: No dysuria. No hematuria. Musculoskeletal: No myalgias. No arthralgias. Neurologic: No headaches. No dizziness. No lightheadedness. Skin: No rash. Positive yellow skin. No itching or pruritus. EXAM Physical Exam Narrative Exam Narrative: Afebrile. Vital signs noted. Nontoxic-appearing. HEENT examination reveals PERRL, EOMI, positive scleral icterus. Cardiovascular examination reveals mild tachycardia, occasionally irregular. Lungs are clear to auscultation bilaterally. Abdomen is soft and nontender without guarding or rebound. Positive bowel sounds. Neurological examination is nonfocal, nonlateralizing. No clonus. Skin examination does show diffuse jaundice especially in the face. Const Vital Signs: 01/09/25 18:39 01/09/25 18:51 01/09/25 20:39 Temperature 97.8 F Temperature Source Oral Pulse Rate 103 H 82 Respiratory Rate 18 20 H Respiratory Effort Normal Respiratory Pattern Normal Blood Pressure 130/95 H 177/87 H Blood Pressure Mean 106 117 Pulse Ox 99 97 Oxygen Delivery Method Room Air Room Air MDM MDM MDM Narrative Medical decision making narrative: Differential diagnosis includes but not limited to jaundice secondary to obstruction versus liver mass versus metastasis versus liver failure versus. Gallbladder pathology. I do feel imaging is indicated. I reviewed her laboratory work and she has normal white count of 6.4, mjrdyltpos40.6, hematocrit 37.4, platelet count normal at 171. INR is normal at 1.0, APTT26.1. Sodium slightly low 132 with normal chloride of 98 and potassium 3.8. Total bilirubin elevated 9.78 with direct being 7.64 and elevated. AST of 308 and ALT 390. Alk phos is elevated at 416. Lipase slightly elevated to 24. I reviewed the radiology report of the CT of the abdomen and pelvis. Of most significance is a pancreatic mass at the head of the pancreas causing pancreaticand bile duct dilatation. She also has a distended/hydropic gallbladder. As there is concern for pancreatic carcinoma, I discussed patient with Dr. Cheung with general surgery who agrees with transfer to a tertiary care center. Patient and her family state that her primary care provider is through [facility]. They prefer [facility] As it is in closer proximity, and they are associated with the [facility]. I discussed patient with the transfer line. They are working on acceptance, but the patient will be signed out to as she is awaiting acceptance. Should they not have an available bed, patient will be discussed with the hospitalist for admission here. Disposition is transferred in stable condition. History & Record Review Discussion w/independent historian: Patient and Family Lab Data Attestation: I reviewed the patient's lab results. Labs: Laboratory Results - last 24 hr 01/09/25 19:21 WBC 6.4 RBC 4.26 Hgb 12.6 Hct 37.4 MCV 87.8 MCH 29.6 MCHC 33.7 RDW Std Deviation 47.2 H RDW Coeff of [place] 14.6 Plt Count 171 MPV 13.7 H Immature Gran % (Auto) 0.300 Neut % (Auto) 65.7 Lymph % (Auto) 21.5 [place] % (Auto) 10.8 H Eos % (Auto) 1.1 Baso % (Auto) 0.6 Absolute Neuts (auto) 4.2 Absolute Lymphs (auto) 1.37 Nucleated RBC % 0 PT 12.8 INR 1.0 APTT 26.1 Sodium 132 L Potassium 3.8 Chloride 98 Carbon Dioxide 20.3 L Anion Gap 14 BUN 11 Creatinine 0.81 Estim Creat Clear Calc 44.58 L Est GFR (MDRD) Non-Af 71 BUN/Creatinine Ratio 14.0 Glucose 418 H Calcium 9.9 Total Bilirubin 9.78 H Direct Bilirubin 7.64 H AST 308 H ALT 390 H Alkaline Phosphatase 416 H Total Protein 7.3 Albumin 4.2 Globulin 3.1 Lipase 224 H Radiography Diagnostic Testing: Clinical Impression(s) from Imaging Studies Abdomen/Pelvis CT 01/09/25 18:57 IMPRESSION: 1. Dilated hepatic and pancreatic bile ducts. An area of hypoattenuation in the head of the pancreas. These findings are concerning for pancreatic carcinoma. 2. Mild hepatocellular disease. 3. Markedly distended/hydropic gallbladder. 4. Other nonacute findings detailed above. Reading Location: [facility] Discharge Plan Triage Chief Complaint: Abn Labs ED Provider: Guille Garnica Dx/Rx/DC Orders Clinical Impression: Mass of head of pancreas, Elevated lipase, Jaundice Prescriptions: No Action pantoprazole 40 mg tablet,delayed release (DR/EC) 40 mg PO DAILY Qty: 90 3RF multivitamin Tablet 1 tab PO DAILY metformin 500 mg tablet 500 mg PO BID metoprolol tartrate 50 mg tablet 50 mg PO BID losartan 100 mg tablet 100 mg PO DAILY atorvastatin 20 mg tablet 20 mg PO QHS Patient Comments: TAKE 1 TABLET BY MOUTH ONCE DAILY apixaban 5 mg tablet 5 mg PO BID Qty: 180 3RF Cepacol Sore Throat (janneth-men) 15-2.6 mg lozenge 1 cee mucous membrane Q2H PRN (Reason: sore throat) Qty: 16 0RF amlodipine 10 mg tablet 10 mg PO DAILY Qty: 90 3RF Primary Care Provider: Henok Martinez Referrals: Henok Martinez MD [Primary Care Provider] - Print Language: Martiniquais What to do if you have Problems For any increased pain, shortness of breath, bleeding, nausea or vomiting, chestpain, or any unexpected problems, contact your Primary Care Provider. Call [facility] ([phone]) or report to the closest Emergency Room. Call 911 if necessary. 01/09/252214 <Electronically signed by Guille Garnica MD> Cosigner Signature (if applicable): CC: Dr. Henok Martinez MD ~ Signed [facility] Work Phone: 1(845) 610-411903-15-2025 Discharge summary [facility] Medical Records Department [address] [place] [id number] Emergency Department Summary 01/09/25 MR#: [id number] Acct: [id number] Name: TELMA TINEO Rep #:[id number] : 1940 84 From: Guille Garnica MD PCP: Dr. Henok Martinez MD Status:REG E R Location: ED ADDENDUM by Dr. Hung Remy DO on 01/09/25 at 2244 Update 2245 hrs.: Patient was accepted at [facility]. They are stating it is unlikely that a bed will be assigned until at least tomorrow. Per hospital protocol we will wait 6 hours and then I will speak with the hospitalist regarding admission 01/09/252243 Cosigner Signature (if applicable): cc: Dr. Henok Martinez MD ~* Signed HPI History of Present Illness Chief Complaint: Abn Labs Narrative Narrative: 84-year-old female past medical history of hypertension, dysrhythmia, on blood thinners, presents with jaundice. She and her family states that she has been yellow for about a week. She is nauseated but not vomiting. She has dark urineand reid colored stools. She does not drink alcohol. She denies any exacerbating or alleviating factors but her grandson states that she has not taken some of her meds for the last few days. No fevers or chills. [facility] Medical History Neck pain, bilateral History of TIA (transient ischemic attack) Stroke/cerebrovascular accident Essential hypertension Complaint of melena Transient ischemic attack (03/2021) History of Lundberg's palsy GERD (gastroesophageal reflux disease) History of cancer History of blood transfusion Right atrial mass Former smoker Asthma Diabetes mellitus, type 2 Home Medications ?Medication ?Instructions ?Recorded ?Last Taken ?Type multivitamin 1 tab PO DAILY 06/19/21 Unkn own History pantoprazole 40 mg tablet,delayed 40 mg PO DAILY gerd #90 tabs 08/28/21 Unknown Rx release metformin 500 mg tablet 500 mg PO BID 02/15/22 Unkno wn History atorvastatin 20 mg tablet 20 mg PO QHS 03/07/23 Unknow n History losartan 100 mg tablet 100 mg PO DAILY 03/07/23 Unk nown History metoprolol tartrate 50 mg tablet 50 mg PO BID 11/21/23 Unknown History benzocaine 15 mg-menthol 2.6 mg 1 cee mucous membrane Q2H PRN sore 02/25/24 Unknown Rx lozenges (Cepacol Sore Throat throat #16 ea (benzocaine-menthol)) apixaban 5 mg tablet 5 mg PO BID #180 tabs Unknown Rx amlodipine 10 mg tablet 10 mg PO DAILY #90 tabs 10/28 02/19 Unknown Rx Allergy/AdvReac Type Severity Reaction Status Date / Time Penicillins Allergy Severe Anaphylaxis Verified 01/09/25 19:02 tetracycline Allergy Severe anaphylaxis Verified 01/09/25 19:02 tramadol (From Ultram) AdvReac Severe syncope Verified 01/09/25 21:02 Family History Mother Pancreatic cancer CAD (coronary artery disease) Father Cancer Lung cancer Brother Parkinson disease Surgical History History of surgery H/O: hysterectomy H/O hemorrhoidectomy History of bladder surgery H/O rhinoplasty History of cataract surgery History of appendectomy Social History Smoking Status: Former smoker how long ago did patient quit smokin+ years alcohol intake: never substance use type: does not use ROS ROS ED ROS Narrative Constitutional: No fever, no chills. HEENT: No sore throat. No neck pain. No loss of vision. No rhinorrhea. Cardiovascular: No chest pain. No palpitations. No pedal edema. Respiratory: No cough, no shortness of breath. Abdominal: No abdominal pain. Positive nausea. No vomiting. Genitourinary: No dysuria. No hematuria. Musculoskeletal: No myalgias. No arthralgias. Neurologic: No headaches. No dizziness. No lightheadedness. Skin: No rash. Positive yellow skin. No itching or pruritus. EXAM Physical Exam Narrative Exam Narrative: Afebrile. Vital signs noted. Nontoxic-appearing. HEENT examination reveals PERRL, EOMI, positive scleral icterus. Cardiovascular examination reveals mild tachycardia, occasionally irregular. Lungs are clear to auscultation bilaterally. Abdomen is soft and nontender without guarding or rebound. Positive bowel sounds. Neurological examination is nonfocal, nonlateralizing. No clonus. Skin examination does show diffuse jaundice especially in the face. Const Vital Signs: 01/09/25 18:39 01/09/25 18:51 01/09/25 20:39 Temperature 97.8 F Temperature Source Oral Pulse Rate 103 H 82 Respiratory Rate 18 20 H Respiratory Effort Normal Respiratory Pattern Normal Blood Pressure 130/95 H 177/87 H Blood Pressure Mean 106 117 Pulse Ox 99 97 Oxygen Delivery Method Room Air Room Air MDM MDM MDM Narrative Medical decision making narrative: Differential diagnosis includes but not limited to jaundice secondary to obstruction versus liver mass versus metastasis versus liver failure versus. Gallbladder pathology. I do feel imaging is indicated. I reviewed her laboratory work and she has normal white count of 6.4, blpetixuck61.6, hematocrit 37.4, platelet count normal at 171. INR is normal at 1.0, APTT26.1. Sodium slightly low 132 with normal chloride of 98 and potassium 3.8. Total bilirubin elevated 9.78 with direct being 7.64 and elevated. AST of 308 and ALT 390. Alk phos is elevated at 416. Lipase slightly elevated to 24. I reviewed the radiology report of the CT of the abdomen and pelvis. Of most significance is a pancreatic mass at the head of the pancreas causing pancreaticand bile duct dilatation. She also has a distended/hydropic gallbladder. As there is concern for pancreatic carcinoma, I discussed patient with Dr. Cheung with general surgery who agrees with transfer to a tertiary care center. Patient and her family state that [facility] and [facility] with the [facility]. I discussed patient with the transfer line. They are working on acceptance, but the patient will be signed out to as she is awaiting acceptance. Should they not have an available bed, patient will be discussed with the hospitalist for admission here. Disposition is transferred in stable condition. History & Record Review Discussion w/independent historian: Patient and Family Lab Data Attestation: I reviewed the patient's lab results. Labs: Laboratory Results - last 24 hr 01/09/25 19:21 WBC 6.4 RBC 4.26 Hgb 12.6 Hct 37.4 MCV 87.8 MCH 29.6 MCHC 33.7 RDW Std Deviation 47.2 H RDW Coeff of [place] 14.6 Plt Count 171 MPV 13.7 H Immature Gran % (Auto) 0.300 Neut % (Auto) 65.7 Lymph % (Auto) 21.5 [place] % (Auto) 10.8 H Eos % (Auto) 1.1 Baso % (Auto) 0.6 Absolute Neuts (auto) 4.2 Absolute Lymphs (auto) 1.37 Nucleated RBC % 0 PT 12.8 INR 1.0 APTT 26.1 Sodium 132 L Potassium 3.8 Chloride 98 Carbon Dioxide 20.3 L Anion Gap 14 BUN 11 Creatinine 0.81 Estim Creat Clear Calc 44.58 L Est GFR (MDRD) Non-Af 71 BUN/Creatinine Ratio 14.0 Glucose 418 H Calcium 9.9 Total Bilirubin 9.78 H Direct Bilirubin 7.64 H AST 308 H ALT 390 H Alkaline Phosphatase 416 H Total Protein 7.3 Albumin 4.2 Globulin 3.1 Lipase 224 H Radiography Diagnostic Testing: Clinical Impression(s) from Imaging Studies Abdomen/Pelvis CT 01/09/25 18:57 IMPRESSION: 1. Dilated hepatic and pancreatic bile ducts. An area of hypoattenuation in the head of the pancreas. These findings are concerning for pancreatic carcinoma. 2. Mild hepatocellular disease. 3. Markedly distended/hydropic gallbladder. 4. Other nonacute findings detailed above. [facility] Triage Chief Complaint: Abn Labs ED Provider: Guille Garnica Dx/Rx/DC Orders Clinical Impression: Mass of head of pancreas, Elevated lipase, Jaundice Prescriptions: No Action pantoprazole 40 mg tablet,delayed release (DR/EC) 40 mg PO DAILY Qty: 90 3RF multivitamin Tablet 1 tab PO DAILY metformin 500 mg tablet 500 mg PO BID metoprolol tartrate 50 mg tablet 50 mg PO BID losartan 100 mg tablet 100 mg PO DAILY atorvastatin 20 mg tablet 20 mg PO QHS Patient Comments: TAKE 1 TABLET BY MOUTH ONCE DAILY apixaban 5 mg tablet 5 mg PO BID Qty: 180 3RF Cepacol Sore Throat (janneth-men) 15-2.6 mg lozenge 1 cee mucous membrane Q2H PRN (Reason: sore throat) Qty: 16 0RF amlodipine 10 mg tablet 10 mg PO DAILY Qty: 90 3RF Primary Care Provider: Henok Martinez Referrals: Henok Martinez MD [Primary Care Provider] - Print Language: Martiniquais What to do if you have Problems For any increased pain, shortness of breath, bleeding, nausea or vomiting, chestpain, or any unexpected problems, contact your Primary Care Provider. Call [facility] ([phone]) or report tothe closest Emergency Room. Call 911 if necessary. 01/09/252214 Cosigner Signature (if applicable): CC: Dr. Henok Martinez MD ~ Signed [facility]03-15-2025 Radiology Diagnostic study note [facility] Imaging Services [address] [place], [place] [id number] Abdomen/Pelvis W IV Cont ONLY MR#: [id number] Acct: [id number] Name: ETLMA TINEO Rep #: [id number] : 1940 F 84 From: Daniela Jonas MD PCP: Dr. Henok Martinez MD Status: REG E R Study:Abdomen/Pelvis W IV Cont ONLY Date of E xam: 01/09/25 Exam# [id number] Ordering Dr: Guille Garnica MD PROCEDURE: ABDOMEN/PELVIS W IV CONT ONLY 01/09/2025 REASON FOR EXAM: JAUNDICE, PAIN. Reid colored stool. Dark urine. Hypertension. Diabetes. Hysterectomy. Appendectomy. TECHNIQUE: Abdomen CT without and with intravenous contrast. Coronal and Sagittal reconstruction series were provided. PATIENT PREPARATION: Per protocol ORAL CONTRAST TYPE: None. CONTRAST: Isovue 370 VOLUME: 92mL One or more dose reduction techniques were used (e.g., Automated exposure control, adjustment of the mA and/or kV according to patient size, use of iterative reconstruction technique. RADIATION DOSE SUMMARY: CTDlvol: 26.86 mGy DLP: 655.55 mGycm COMPARISON: None. COMPARISON: None. FINDINGS: Lung bases: Unremarkable. Liver: Attenuation slightly less than the spleen. Normal-size. No masses. Markedly dilated hepatic duct at 1.3 cm. Mildly dilated intrahepatic bile ducts. Gallbladder: Markedly distended. No gallstones Spleen: Unremarkable. Pancreas: An area of diminished attenuation in the head measuring 1.9 x 1.3 cm, axial image 31, coronal image 47. Dilated pancreatic duct measuring 0.4 cm. Adrenals: Left adrenal gland thickening. Kidneys: Unremarkable. Bladder: Unremarkable. Reproductive Organs: Uterus surgically absent. Bowel: Unremarkable. Appendix: Surgically absent. Lymph nodes: No lymphadenopathy. Vasculature: Mild atherosclerotic calcific disease. Peritoneum / Retroperitoneum: No masses or free fluid. Anterior abdominal wall: Unremarkable. Bones: Mild multilevel spondylosis and degenerative disc disease. CT/Abdomen/Pelvis W IV Cont ONLY IMPRESSION: 1. Dilated hepatic and pancreatic bile ducts. An area of hypoattenuation in the head of the pancreas. These findings are concerning for pancreatic carcinoma. 2. Mild hepatocellular disease. 3. Markedly distended/hydropic gallbladder. 4. Other nonacute findings detailed above. Reading Location[facility] CC: Dr. Guille Garnica MD; Dr. Henok Martinez MD ~ Supervisor Billposting: Signed [facility]03-10-2025 NoteHNO ID: [id number] Author: BRETT HATCH RN Service: ? Author Type: Registered Nurse Type: Progress Notes Filed: 01/04/2025 13:43 Note Text: CDM ENROLLMENT Provider Action / FYI: Patient identified by name and date of . Discussed care with son. Spoke with girma Aguirre, pt lives alone but son and dtr care for her everyday. Timothy would like to talk with patient first to see if they would be interested in the CDM program before agreeing to anything. Will call next day to follow-up Program Details Chronic Disease Management Status: Identified Start Date: 12/28/2024 Responsible Staff: Brett Hatch RN Support and Services: Assessments No documentation this encounter Interventions No checklist tasks for this episode were completed during this visit, and no tasks for this episode are pending completion. Brett Hatch RN January 04, 2025 1:[facility] History of Present illness Narrative* Brett Hatch RN - 01/04/2025 1:40 PM EDT CDM ENROLLMENT Provider Action / FYI: Patient identified by name and date of . Discussed care with son. Spoke with son Timothy, pt lives alone but son and dtr care for her everyday. Timothy would like to talk with patient first to see if they would be interested in the CDM program before agreeing to anything. Will call next day to follow-up Program Details Chronic Disease Management Status: Identified Start Date: 12/28/2024 Responsible Staff: Brett Hatch RN Support and Services: Assessments No documentation this encounter Interventions No checklist tasks for this episode were completed during this visit, and no tasks for this episodeare pending completion. Brett Hatch RN January 04, 2025 1:40 PM [facility] NotePatient Outreach ([facility]) TELMA TINEO ([id number]) 1940 F Date Time Provider Department 01/04/25 BRETT HATCH During your visit today, we recorded the following information about you: Brett Hatch RN 01/04/2025 1:43 PM Signed CDM ENROLLMENT Provider Action / FYI: Patient identified by name and date of . Discussed care with son. Spoke with son Timothy, pt lives alone but son and dtr care for her everyday. Timothy would like to talk with patient first to see if they would be interested in the CDM program before agreeing to anything. Will call next day to follow-up Program Details Chronic Disease Management Status: Identified Start Date: 12/28/2024 Responsible Staff: Brett Hatch RN Support and Services: Assessments No documentation this encounter Interventions No checklist tasks for this episode were completed during this visit, and no tasks for this episode are pending completion. Brett Hatch RN January 04, 2025 1:40 PM Allergies As of Date: 01/04/2025 Noted Allergy Reaction PENICILLINS 09/14/2021 10 - Anaphylaxis TETRACYCLINE 09/14/2021 2 - Rash TRAMADOL 07/01/2024 5 - Intolerance Comments: Trembling Date Reviewed: 11/17/2024 Reviewed by: Angelia Hart APRN.POLE INCISOR OPERATOR - Fully Assessed Prescriptions as of 01/04/2025 - metoprolol tartrate, short acting, (LOPRESSOR) 50 mg tablet Take 1.5 tablets by mouth two times a day. - losartan (COZAAR) 100 mg tablet Take 1 tablet by mouth once daily. - fluticasone-vilanterol (BREO ELLIPTA) 100-25 mcg/dose inhaler Inhale 1 Inhalation as instructed once daily. - guaiFENesin (MUCINEX) 600 mg 12 hr tablet Take 1 tablet by mouth two times a day. - pantoprazole DR (PROTONIX) 40 mg tablet Take 1 tablet by mouth two times a day. - cyclobenzaprine (FLEXERIL) 5 mg tablet Take 1 tablet by mouth two times a day as needed for muscle spasm. - PEG 400-propylene glycol (SYSTANE ULTRA) 0.4-0.3 % ophthalmic solution Use 1 Drop in both eyes three times a day. - Artificial Tear, Hypromellose, (SYSTANE GEL) 0.3 % gel Use 1 Drop in both eyes daily at bedtime. - atorvastatin (LIPITOR) 20 mg tablet Take 1 tablet by mouth once daily. - ELIQUIS 5 mg tab(s) Take 5 mg by mouth two times a day. - benzocaine-menthol (CEPACOL) 15-2.6 mg lozg lozenge Take 1 Lozenge by mouth every 4 hours as needed for pain. - Promethazine-DM (PHENERGAN-DM) 6.25-15 mg/5 mL syrup Take 5 mL by mouth four times a day as needed. - amLODIPine (NORVASC) 10 mg tablet Take 10 mg by mouth once daily. - metFORMIN (GLUCOPHAGE) 500 mg tablet Take 2 tablets by mouth two times a day with meals. - Blood Pressure Test Kit-Large (Mapidy ARM BP MONITOR) 1 Each once daily. - Methylsulfonylmethane (MSM) 1,000 mg cap Take 1 capsule by mouth once daily. 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 History of uterine cancer [Z85.42] 09/14/2021 Bronchiectasis without complication (HCC) [J47.*11/22/2022 Atrial fibrillation, unspecified type (HCC) [I4*04/15/2023 Candidiasis of vagina [B37.31] 05/20/2023 05/20/2023 Diagnosed: 05/20/2023 Chest pain [R07.9] 03/12/2023 07/01/2024 Diagnosed: 05/20/2023 Hyperlipidemia [E78.5] 05/20/2023 Diagnosed: 05/20/2023 Impaired cognition [R41.89] 05/20/2023 Diagnosed: 05/20/2023 assisted current use of anticoagulant therapy *05/20/2023 Diagnosed: 05/20/2023 Neck pain [M54.2] 05/20/2023 05/20/2023 Diagnosed: 05/20/2023 Cerebrovascular accident (CVA) (HCC) [I63.9] 05/20/2023 Diagnosed: 05/20/2023 Encounter Status:Closed by BERTT HATCH on [facility]/25[facility] Telephone encounter Note* Telephone Encounter - Virginia Reina APRN.CNP - 12/15/2024 11:44 AM EST The following approved medication requests have been transmitted electronically. Requested Prescriptions Pending Prescriptions Disp Refills losartan (COZAAR) 100 mg tablet 90 tablet 3 Sig: Take 1 tablet by mouth once daily. Virginia Reina APRN.CNP [facility]02-18-2025 Miscellaneous Notes* Telephone Encounter - Virginia Reina APRN.CNP - 12/15/2024 11:44 AM EST The following approved medication requests have been transmitted electronically. Requested Prescriptions Pending Prescriptions Disp Refills losartan (COZAAR) 100 mg tablet 90 tablet 3 Sig: Take 1 tablet by mouth once daily. Virginia Reina APRN.CNP * Telephone Encounter - Jose Ortiz LPN - 12/15/2024 10:59 AM EST Prescription Refill Information The patient has been identified by name and date of : Yes Caregiver verified no other encounters exist for this prescription request: Yes Caregiver confirmed with patient/requestor that no other refills are due, in the near future, with this provider at this time: Yes The last office visit in the department: 11/04/24 Does the patient have a future office visit with this provider/department: No Requested Prescriptions Pending Prescriptions Disp Refills losartan (COZAAR) 100 mg tablet 90 tablet 3 Sig: Take 1 tablet by mouth once daily. Jose Ortiz LPN December 15, 2024 10:59 AM documented in [facility]Tr[facility] Telephone encounter Note * Telephone Encounter - Jose Ortiz LPN - 12/15/2024 10:59 AM EST Prescription Refill Information The patient has been identified by name and date of : Yes Caregiver verified no other encounters exist for this prescription request: Yes Caregiver confirmed with patient/requestor that no other refills are due, in the near future, with this provider at this time: Yes The last office visit in the department: 11/04/24 Does the patient have a future office visit with this provider/department: No Requested Prescriptions Pending Prescriptions Disp Refills losartan (COZAAR) 100 mg tablet 90 tablet 3 Sig: Take 1 tablet by mouth once daily. Jose Ortiz LPN December 15, 2024 10:59 AM [facility]01-21-2025 History of Present illness Narrative* Click, Angelia Trevino APRN.POLE INCISOR OPERATOR - 11/17/2024 1:00 PM EST Images from the original note were not included. Pulmonary Medicine Patients name: Telma Tineo PCP: Henok Martinez MD CC: follow-up HPI: Telma Tineo is a 84 year old female former minimal smoker with PMH significant for CVA, HTN, DM2, GERD, chronic Afib (Eliquis), obesity, longstanding asthma, allergies presenting for follow-up.Current therapy with Breo Ellipta and as needed Albuterol. ESTELLE 05/[address] Medley with stable Asthma/Bronchiectasis. Was seen by PCP in September for productive cough, SOB, headache and ear pain. Treated with Levaquin for Bronchitis. Also recommended barium swallow d/t hx of dysphasia and reported food getting caught in her throat. PPI also increased to BID. Completed barium swallow 11/09 with No evidence of aspiration, Focal indentation along the anterior mid thoracic esophagus. Seen again in PCP office 2 weeks ago with complaints of hemoptysis and upper abdomen pain. Ultrasound of rt upper abodmen and spleen without acute abnormality. Chest xray also normal. Today, patient reports productive cough with white/sticky sputum, feels like its stuck in her throat. Constantly clearing her throat. No longer having hemoptysis. Notes her nose was dry and would have blood when she blew her nose when having hemoptysis. Sinus congestion has improved but having PND.Family has noted wheezing. No dyspnea at rest. Exertional dyspnea has not changed. No fevers, chills, or night sweats. GERD/heartburn symptoms mildly improved with increase in PPI. Ran out of Corengi and has been out since the beginning of the year. Has not been using Albuterol. PAST MEDICAL HISTORY Diagnosis Date Allergies Lundberg's palsy Bronchiectasis (HCC) Gastroesophageal reflux disease without esophagitis History of CVA (cerebrovascular accident) Mild intermittent asthma without complication Primary hypertension Type 2 diabetes mellitus without complication, without long-term current use of insulin (HCC) Allergies: Penicillins Anaphylaxis Tetracycline Rash Tramadol Intolerance Comment:Trembling Medication List Accurate as of November 17, 2024 8:35 AM. If you have any questions, ask your nurse or doctor. CONTINUE taking these medications amLODIPine 10 mg tablet Commonly known as: NORVASC atorvastatin 20 mg tablet Commonly known as: LIPITOR Take 1 tablet by mouth once daily. benzocaine-menthol 15-2.6 mg Lozg lozenge Commonly known as: CEPACOL Blood Pressure Test Kit-Large Commonly known as: Mapidy ARM BP MONITOR 1 Each once daily. cyclobenzaprine 5 mg tablet Commonly known as: FLEXERIL Take 1 tablet by mouth two times a day as needed for muscle spasm. ELIQUIS 5 mg tab(s) Generic drug: apixaban fluticasone-vilanterol 100-25 mcg/dose inhaler Commonly known as: BREO ELLIPTA Inhale 1 Inhalation as instructed once daily. losartan 100 mg tablet Commonly known as: COZAAR Take 1 tablet by mouth once daily. metFORMIN 500 mg tablet Commonly known as: GLUCOPHAGE Take 2 tablets by mouth two times a day with meals. metoprolol tartrate (short acting) 50 mg tablet Commonly known as: LOPRESSOR Take 1.5 tablets by mouth two times a day. MSM 1,000 mg Cap Generic drug: Methylsulfonylmethane pantoprazole 40 mg tablet Commonly known as: PROTONIX Take 1 tablet by mouth two times a day. Promethazine-DM 6.25-15 mg/5 mL syrup Commonly known as: PHENERGAN-DM Take 5 mL by mouth four times a day as needed. Systane GeL 0.3 % Gel Generic drug: Artificial Tear (Hypromellose) Use 1 Drop in both eyes daily at bedtime. SYSTANE ULTRA 0.4-0.3 % ophthalmic solution Generic drug: PEG 400-propylene glycol Use 1 Drop in both eyes three times a day. DATA: I personally reviewed and analyzed all labs, radiographs and available pulmonary function testing PFT: 09/2022 Spirometry is normal. There was not a significant bronchodilator response. The TLC, RV and RV/TLC are normal. The presence of a reduced lung diffusing capacity - that does not normalize when measured independent of alveolar volume (kCO) suggests a parenchymal or pulmonary vascular disorder. CXR: Last XR Chest - Impression Only XR CHEST 2V FRONTAL/LAT Exam End: 11/05/2024 9:24 AM (Final result) Impression: IMPRESSION: No acute radiographic abnormality. ... CT Chest: 10/2022 IMPRESSION: Mild bronchiectasis at the lung bases. Borderline mediastinal and axillary nodes measure at or near 1 cm. No suspicious mass or definite lymphadenopathy within the chest. Supervisor Billposting: [facility] Transcribe Date/Time: Nov 21 2022 4:33P Dictated by : VELASQUEZ BENTON MD This examination was interpreted and the report reviewed and electronically signed by: VELASQUEZ BENTON MD on Nov 21 2022 4:44PM EST Results-Findings * * *Final Report* * * DATE OF EXAM: Nov 20 2022 2:16PM [facility] 0541 - CT CHEST WO IVCON / PROCEDURE REASON: multiple diagnoses * * * * Physician Interpretation * * * * EXAMINATION: CHEST CT WITHOUT CONTRAST CLINICAL HISTORY: Chronic cough. Bronchiectasis Technique: Spiral CT acquisition of the chest from the thoracic inlet to the upper abdomen without contrast. MQ: [id number] CT Radiation dose: Integrated Dose-length product (DLP) for this visit = 227 mGy*cm CT Dose Reduction Employed: Automated exposure control(AEC) and iterative recon Comparison: Chest x-ray of 10/26/2022 RESULT: Limitations: None. Lines, tubes, and devices: None. Lung parenchyma and airways: Minimal linear indeterminate density at the left lung base likely represents atelectasis or fibrosis. Mild bronchiectasis at the lung bases. No consolidation. No suspicious pulmonary nodule. The central airways are patent. Pleural space: No pleural effusion. No pleural thickening. Lower neck, lymph nodes, and mediastinum: The imaged thyroid gland is normal. Borderline mediastinal lymph nodes measure at or near 1 cm. Borderline left axillary nodes measuring at or near 1 cm. No lymphadenopathy in the supraclavicular, axillary, mediastinal, or hilar regions. Heart, pericardium, and thoracic vessels: The thoracic aorta and main pulmonary artery are normal in caliber. The cardiac chambers are normal in size. No coronary artery atherosclerotic calcifications are noted, although the study is not optimized for coronary assessment. No pericardial effusion or thickening. Bones and soft tissues: No destructive bone lesion. Chest wall is unremarkable. Degenerative changes throughout the spine Upper abdomen: No abnormality in the imaged upper abdomen. Perforator Typist (topogram) images: No additional findings. Labs: WBC (k/uL) Date Value 11/05/2024 7.49 09/25/2021 8.41 RBC (m/uL) Date Value 11/05/2024 4.33 09/25/2021 4.50 Hemoglobin (g/dL) Date Value 11/05/2024 12.7 09/25/2021 13.2 Hematocrit (%) Date Value 11/05/2024 39.3 09/25/2021 40.1 Platelet Count (k/uL) Date Value 11/05/2024 209 09/25/2021 201 MPV (fL) Date Value 11/05/2024 13.3 09/25/2021 12.2 Neut% (%) Date Value 09/25/2021 65.8 Neutrophils % (%) Date Value 11/05/2024 62.2 Eosin% (%) Date Value 09/25/2021 1.7 Eosinophils % (%) Date Value 11/05/2024 2.5 Baso% (%) Date Value 09/25/2021 0.2 Basophils % (%) Date Value 11/05/2024 0.5 Abs Neut (ANC) (k/uL) Date Value 09/25/2021 5.53 Abs Neut (k/uL) Date Value 11/05/2024 4.65 Abs [place] (k/uL) Date Value 11/05/2024 0.65 09/25/2021 0.71 Abs Eosin (k/uL) Date Value 11/05/2024 0.19 09/25/2021 0.14 Abs Baso (k/uL) Date Value 11/05/2024 0.04 09/25/2021 <0.03 Review of Systems Constitutional: Negative for activity change, appetite change, fever and unexpected weight change. HENT: Positive for postnasal drip. Negative for mouth sores and sinus pressure. Respiratory: Positive for cough, shortness of breath and wheezing. Negative for chest tightness. Cardiovascular: Negative for chest pain, palpitations and leg swelling. Neurological: Negative for weakness, light-headedness and headaches. BP 104/62 Pulse 72 Resp 16 Wt (P) 72.1 kg (159 lb) SpO2 (P) 98% BMI (P) 32.11 kg/m Physical Exam Vitals reviewed. Constitutional: General: She is not in acute distress. Appearance: Normal appearance. She is not ill-appearing. HENT: Head: Normocephalic. Nose: No rhinorrhea. Mouth/Throat: Mouth: Mucous membranes are moist. Pharynx: No oropharyngeal exudate. Cardiovascular: Rate and Rhythm: Normal rate. Heart sounds: Normal heart sounds. Pulmonary: Effort: Pulmonary effort is normal. No respiratory distress. Breath sounds: No wheezing or rhonchi. Musculoskeletal: Right lower leg: Edema present. Left lower leg: Edema present. Comments: 1+ b/l LE edema Lymphadenopathy: Cervical: No cervical adenopathy. Skin: General: Skin is warm and dry. Capillary Refill: Capillary refill takes less than 2 seconds. Neurological: General: No focal deficit present. Mental Status: She is alert. ASSESSMENT/PLAN: 1. Mild persistent asthma without complication - ICD9: 493.90, ICD10: J45.30 (primary diagnosis) 2. Cough, unspecified type - ICD9: 786.2, ICD10: R05.9 - currently with c/o cough/throat clearing. - had recent episode of bronchitis and has not been on inhaled therapy for 3 weeks. - chest xray without acute concern. - No current need for steroids or antibiotics. - resume inhaled therapy with Breo and PRN Albuterol - encouraged regular use of Mucinex and tessalon perles. - FLUTICASONE FUROATE 100 MCG-VILANTEROL 25 MCG/DOSE INHALATION POWDER 3. Hemoptysis - ICD9: 786.30, ICD10: R04.2 - resolved - chest xray without evidence of pneumonia - likely in the setting of bronchitis, also on Eliquis 4. Bronchiectasis without complication (HCC) - ICD9: 494.0, ICD10: J47.9 - currently stable - no current need for bronchopulmonary hygiene 5. Dysphagia, unspecified type - ICD9: 787.20, ICD10: R13.10 - recently seen by speech therapy with modified barium swallow - follow recommended precautions - follow-up with PCP Portions of this documentation were copied and pasted from previous office visit notes in order to provide a cohesive continuity of the history. The note has been reviewed and edited and updated as necessary. Angelia Hart APRN.NÉSTOR I spent a total of 30 minutes on the date of the service which included preparing to see the patient, [id number] patient care, completing clinical documentation, performing a medically appropriate examination, counseling and educating the patient/family/caregiver, ordering medications, tests, or p rocedures, and communicating results to the patient/family/caregiver. documented in this [facility]Tr[facility]25 NoteHNO ID: [id number] Author: ANGELIA HART APRN.NÉSTOR Service: ? Author Type: Nurse Practitioner Type: Progress Notes Filed: 11/17/2024 15:21 Note Text: Pulmonary Medicine Patients name: Telma Tineo PCP: Henok Martinez MD CC: follow-up HPI: Telma Tineo is a 84 year old female former minimal smoker with PMH significant for CVA, HTN, DM2, GERD, chronic Afib (Eliquis), obesity, longstanding asthma, allergies presenting for follow-up. Current therapy with Breo Ellipta and as needed Albuterol. ESTELLE 05/[address] Medley with stable Asthma/Bronchiectasis. Was seen by PCP in September for productive cough, SOB, headache and ear pain. Treated with Levaquin for Bronchitis. Also recommended barium swallow d/t hx of dysphasia and reported food getting caught in her throat. PPI also increased to BID. Completed barium swallow 11/09 with No evidence of aspiration, Focal indentation along the anterior mid thoracic esophagus. Seen again in PCP office 2 weeks ago with complaints of hemoptysis and upper abdomen pain. Ultrasound of rt upper abodmen and spleen without acute abnormality. Chest xray also normal. Today, patient reports productive cough with white/sticky sputum, feels like its stuck in her throat. Constantly clearing her throat. No longer having hemoptysis. Notes her nose was dry and would have blood when she blew her nose when having hemoptysis. Sinus congestion has improved but having PND. Family has noted wheezing. No dyspnea at rest. Exertional dyspnea has not changed. No fevers, chills, or night sweats. GERD/heartburn symptoms mildly improved with increase in PPI. Ran out of Corengi and has been out since the beginning of the year. Has not been using Albuterol. PAST MEDICAL HISTORY Diagnosis Date Allergies Lundberg's palsy Bronchiectasis (HCC) Gastroesophageal reflux disease without esophagitis History of CVA (cerebrovascular accident) Mild intermittent asthma without complication Primary hypertension Type 2 diabetes mellitus without complication, without long-term current use of insulin (HCC) Allergies: Penicillins Anaphylaxis Tetracycline Rash Tramadol Intolerance Comment:Trembling Medication List Accurate as of November 17, 2024 8:35 AM. If you have any questions, ask your nurse or doctor. CONTINUE taking these medications amLODIPine 10 mg tablet Commonly known as: NORVASC atorvastatin 20 mg tablet Commonly known as: LIPITOR Take 1 tablet by mouth once daily. benzocaine-menthol 15-2.6 mg Lozg lozenge Commonly known as: CEPACOL Blood Pressure Test Kit-Large Commonly known as: Mapidy ARM BP MONITOR 1 Each once daily. cyclobenzaprine 5 mg tablet Commonly known as: FLEXERIL Take 1 tablet by mouth two times a day as needed for muscle spasm. ELIQUIS 5 mg tab(s) Generic drug: apixaban fluticasone-vilanterol 100-25 mcg/dose inhaler Commonly known as: BREO ELLIPTA Inhale 1 Inhalation as instructed once daily. losartan 100 mg tablet Commonly known as: COZAAR Take 1 tablet by mouth once daily. metFORMIN 500 mg tablet Commonly known as: GLUCOPHAGE Take 2 tablets by mouth two times a day with meals. metoprolol tartrate (short acting) 50 mg tablet Commonly known as: LOPRESSOR Take 1.5 tablets by mouth two times a day. MSM 1,000 mg Cap Generic drug: Methylsulfonylmethane pantoprazole DR 40 mg tablet Commonly known as: PROTONIX Take 1 tablet by mouth two times a day. Promethazine-DM 6.25-15 mg/5 mL syrup Commonly known as: PHENERGAN-DM Take 5 mL by mouth four times a day as needed. Systane GeL 0.3 % Gel Generic drug: Artificial Tear (Hypromellose) Use 1 Drop in both eyes daily at bedtime. SYSTANE ULTRA 0.4-0.3 % ophthalmic solution Generic drug: PEG 400-propylene glycol Use 1 Drop in both eyes three times a day. DATA: I personally reviewed and analyzed all labs, radiographs and available pulmonary function testing PFT: 09/2022 Spirometry is normal. There was not a significant bronchodilator response. The TLC, RV and RV/TLC are normal. The presence of a reduced lung diffusing capacity - that does not normalize when measured independent of alveolar volume (kCO) suggests a parenchymal or pulmonary vascular disorder. CXR: Last XR Chest - Impression Only XR CHEST 2V FRONTAL/LAT Exam End: 11/05/2024 9:24 AM (Final result) Impression: IMPRESSION: No acute radiographic abnormality. ... CT Chest: 10/2022 IMPRESSION: Mild bronchiectasis at the lung bases. Borderline mediastinal and axillary nodes measure at or near 1 cm. No suspicious mass or definite lymphadenopathy within the chest. Super[facility] [place] Transcribe Date/Time: Nov 21 2022 4:33P Dictated by : VELASQUEZ BENTON MD This examination was interpreted and the report reviewed and electronically signed by: VELASQUEZ BENTON MD on Nov 21 2022 4:44PM EST Results-Findings * * *Final Report* * * DATE OF EXAM: Nov 20 2022 2:16PM [facility] (more content not included)...[facility]01-16-2025 NoteHNO ID: [id number] Author: FATOUMATA OROZCO RDMS Service: ? Author Type: Saddle Stitch Operator Type: Progress Notes Filed: 11/13/2024 09:33 Note Text: Radiology Service Progress Note PATIENT NAME: Temla Tineo DATE OF SERVICE: November 13, 2024 TIME: 9:32 AM PATIENT IDENTITY VERIFICATION COMPLETED USING TWO (2) IDENTIFIERS: Name and Date of confirmed by patient verbally. FALL SCREENING: Has the patient had 2 falls in the last year or 1 fall with injury or currently using an Ambulatory Assistive Device (Walker, Cane, Wheelchair, Crutches, etc.)? No PATIENT GENDER DATA: Assigned female at . status: : No status: NO. PATIENT RELEVANT IMPLANT DATA REVIEWED: Not Applicable PATIENT PRESENTS WITH AN IMPLANTABLE OR ATTACHED HAT AND CAP DRYING ROOM ATTENDANT: No RADIOLOGY DEPARTMENT: Ultrasound PERIPHERAL IV DATA: Not applicable SIGNED BY: Fatoumata Orozco RDMS RVShelia November 13, 2024 9:32 [facility]01-13-2025 NoteHNO ID: [id number] Author: MELIZA WADSWORTH CCC-MACHINE CUTTER Service: ? Author Type: Speech Language Pathologist Type: Progress Notes Filed: 11/09/2024 16:07 Note Text: Episode Visit Count: Visit count could not be calculated. Make sure you are using a visit which is associated with an episode. Start of Care Date: 11/09/24 Onset Date: 10/28/24 Patient Identified by Name and Date of : Yes [facility] MODIFIED BARIUM SWALLOW PLAN OF CARE: Impression: Evidence of: Oropharyngeal dysphagia, Concern for possible esophageal impairment An elevated risk for aspiration: No Swallow Efficiency: Preserved RESULTS: - large bolus size noted throughout evaluation; education for small bolus size - premature spillage of bolus to level of pyriform sinus - esophageal retention Radiologist: RESULT: Findings: No evidence of aspiration. Focal indentation along the anterior mid thoracic esophagus which may relate to left atrial enlargement RECOMMENDATION: Diet Recommendations: Regular Consistency, Thin Liquids IDDSI Level 0 Swallowing Precautions Recommendations: - Anti-reflux precautions -Alternate bites and sips, -Double swallows, - Feed / Eat at a slow rate, -Sit upright 90 degrees for all PO, - Small Bite/Sip, -Reduced bite size MACHINE CUTTER Recommendations: Diet, Swallowing Precautions, Discontinue Speech Therapy Recommended Consults: GI Results and Recommendations Discussed With: Patient, Family Goals for Modified Barium Swallow: created for 11/09/2024 only. The patient and Grandson will be able to demonstrate adequate return of knowledge of today's fluoroscopic assessment and recommendations to maximize overall safety with oral intake. (baseline = no knowledge). Goal Met SUBJECTIVE: Telma Tineo is a 84 year old female seen today for a Modified Barium Swallow (MBS) Study . - accompanied by Grandson Ashley Duarte - Pt on medication for reflux for a while; no noted change - a lot of problems with throat- swallowing - sometimes it is stuck when it goes down, I need water to get down - happening for a long time - Pt note reflux type symptoms - raspy vocal quality, continual, there for a long time - no recent PNA - belching during evaluation Past Relevant Medical Conditions: Cerebral Vascular Accident, Hypertension, Atrial Fibrillation (GERD, CVA, HTN, epigastric pain, bronchitis) Patient Goals: assess tolerance of food textures AND see why food gets stuck Prior Functional Level: Within Functional Limits OBJECTIVE: MEASURES WITH LEVEL OF FUNCTION: Swallow Position Of Patient During Assessment: Upright In Chair Feeding Method: Patient Self-Fed Consistencies Presented: Thin Liquids IDDSI Level 0, Mildly Thick Liquids IDDSI Level 2 ([place] Thick), Pureed Solids IDDSI Level 4, Soft and Bite-Sized Solids IDDSI Level 6, Solid Response to Consistencies Presented: - Pt able to follow all directives for testing completion - Pt in agreement to accept all textures presented Compensatory Strategies Utilized During Assessment: Alert (patient should be fully alert for P.O. intake), Alternate bites and sips, Double swallows, Feed / Eat at a slow rate, Self-monitoring, Sit upright 90 degrees for all PO, Small Bite/Sip Instrumental Swallow Assessment Type: Modified Barium Swallow Study Modified Barium Swallow Views: Lateral position Barium Consistencies Provided: Thin Liquids IDDSI Level 0, Mildly Thick Liquids IDDSI Level 2 ([place] Thick), Pureed Solids IDDSI Level 4, Soft and Bite-Sized Solids IDDSI Level 6, Solid Oral Phase: As Follows Lip Closure: No labial escape/anterior loss of bolus Tongue Control During Bolus Hold: Escape to lateral buccal cavity and/or floor of mouth (large bolus) Bolus Preparation/Mastication: Slow prolonged mastication with complete re-collection necessary Bolus Transport/Lingual Motion: Brisk tongue motion for A-P movement of the bolus Oral Residue: Residue collection on oral structure (double swallow to clear) Initiation Of Pharyngeal Swallow: Bolus head at pit of pyriforms Pharyngeal Phase: As Follows Soft Palate Elevation: No bolus between soft palate/pharyngeal wall Laryngeal Elevation: Partial superior movement of thyroid cartilage and/or partial approximation of arytenoids to epiglottic petiole Anterior Hyoid Excursion: Complete anterior movement Epiglottic Movement: Partial inversion (large bolus) Laryngeal Vestibular Closure/Height of the Swallow: Complete - no air/contrast in laryngeal vestibule Pharyngeal Stripping Wave: Complete Pharyngeal Contraction (A/P View Only): Not tested Pharyngoesophageal Segment Opening: Complete distension and complete duration/no obstruction of flow of bolus Tongue Base Retraction: Trace column of contrast or air between tongue base and pharyngeal wall Pharyngeal Residue: Collection of residue within or on the pharyngeal structures, Residue with (more content not included)...[id number] History of Present illness Narrative* Meliza Wadsworth CCC-MACHINE CUTTER - 11/09/2024 10:43 AM EST Episode Visit Count: Visit count could not be calculated. Make sure you are using a visit which is associated with an episode. Start of Care Date: 11/09/24 Onset Date: 10/28/24 Patient Identified by Name and Date of : Yes [facility] MODIFIED BARIUM SWALLOW PLAN OF CARE: Impression: Evidence of: Oropharyngeal dysphagia, Concern for possible esophageal impairment An elevated risk for aspiration: No Swallow Efficiency: Preserved RESULTS: - large bolus size noted throughout evaluation; education for small bolus size - premature spillage of bolus to level of pyriform sinus - esophageal retention Radiologist: RESULT: Findings: No evidence of aspiration. Focal indentation along the anterior mid thoracic esophagus which may relate to left atrial enlargement RECOMMENDATION: Diet Recommendations: Regular Consistency, Thin Liquids IDDSI Level 0 Swallowing Precautions Recommendations: - Anti-reflux precautions -Alternate bites and sips, -Double swallows, - Feed / Eat at a slow rate, -Sit upright 90 degrees for all PO, - Small Bite/Sip, -Reduced bite size MACHINE CUTTER Recommendations: Diet, Swallowing Precautions, Discontinue Speech Therapy Recommended Consults: GI Results and Recommendations Discussed With: Patient, Family Goals for Modified Barium Swallow: created for 11/09/2024 only. The patient and Grandson will be able to demonstrate adequate return of knowledge of today's fluoroscopic assessment and recommendations to maximize overall safety with oral intake. (baseline = no knowledge). Goal Met SUBJECTIVE: Telma Tineo is a 84 year old female seen today for a Modified Barium Swallow (MBS) Study . - accompanied by Naty Duarte - Pt on medication for reflux for a while; no noted change - a lot of problems with throat- swallowing - sometimes it is stuck when it goes down, I need water to get down - happening for a long time - Pt note reflux type symptoms - raspy vocal quality, continual, there for a long time - no recent PNA - belching during evaluation Past Relevant Medical Conditions: Cerebral Vascular Accident, Hypertension, Atrial Fibrillation (GERD, CVA, HTN, epigastric pain, bronchitis) Patient Goals: assess tolerance of food textures & see why food gets stuck Prior Functional Level: Within Functional Limits OBJECTIVE: MEASURES WITH LEVEL OF FUNCTION: Swallow Position Of Patient During Assessment: Upright In Chair Feeding Method: Patient Self-Fed Consistencies Presented: Thin Liquids IDDSI Level 0, Mildly Thick Liquids IDDSI Level 2 ([place] Thick), Pureed Solids IDDSI Level 4, Soft and Bite-Sized Solids IDDSI Level 6, Solid Response to Consistencies Presented: - Pt able to follow all directives for testing completion - Ptin agreement to accept all textures presented Compensatory Strategies Utilized During Assessment: Alert (patient should be fully alert for P.O. intake), Alternate bites and sips, Double swallows, Feed / Eat at a slow rate, Self-monitoring, Sit upright 90 degrees for all PO, Small Bite/Sip Instrumental Swallow Assessment Type: Modified Barium Swallow Study Modified Barium Swallow Views: Lateral position Barium Consistencies Provided: Thin Liquids IDDSI Level 0, Mildly Thick Liquids IDDSI Level 2 ([place] Thick), Pureed Solids IDDSI Level 4, Soft and Bite-Sized Solids IDDSI Level 6, Solid Oral Phase: As Follows Lip Closure: No labial escape/anterior loss of bolus Tongue Control During Bolus Hold: Escape to lateral buccal cavity and/or floor of mouth (large bolus) Bolus Preparation/Mastication: Slow prolonged mastication with complete re- collection necessary Bolus Transport/Lingual Motion: Brisk tongue motion for A-P movement of the bolus Oral Residue: Residue collection on oral structure (double swallow to clear) Initiation Of Pharyngeal Swallow: Bolus head at pit of pyriforms Pharyngeal Phase: As Follows Soft Palate Elevation: No bolus between soft palate/pharyngeal wall Laryngeal Elevation: Partial superior movement of thyroid cartilage and/or partial approximation ofarytenoids to epiglottic petiole Anterior Hyoid Excursion: Complete anterior movement Epiglottic Movement: Partial inversion (large bolus) Laryngeal Vestibular Closure/Height of the Swallow: Complete - no air/contrast in laryngeal vestibule Pharyngeal Stripping Wave: Complete Pharyngeal Contraction (A/P View Only): Not tested Pharyngoesophageal Segment Opening: Complete distension and complete duration/no obstruction of flow of bolus Tongue Base Retraction: Trace column of contrast or air between tongue base and pharyngeal wall Pharyngeal Residue: Collection of residue within or on the pharyngeal structures, Residue within the valleculae following the swallow (clear with double swallow) Esophageal Clearance In An Upright Position: Esophageal retention Penetration-Aspiration Scale Level 1-Material does not enter airway : Regular Consistency, Soft and Bite- Sized IDDSI Level 6, Pureed IDDSI Level 4, Mildly Thick Liquids IDDSI Level 2 ([place] Thick), Thin Liquids IDDSI Level 0 Education: Education Learning Preferences: Demonstration, Explanation, Performance Barriers: None Learning/Educational Needs: Compensatory Strategies, Diet Modification(s), Family Education/Training, Rehabilitation Techniques and Procedures, Swallowing Skills, MBSs results Education Provided: Yes, see treatment interventions for education provided Education Provided To: Patient, Family Education Mode/Type: Demonstration, Explanation/Discussion, Performance, Teach Back, Video Response to Education/Teach Back: States/Identifies, Return Demonstration TREATMENT: Performed Modified Barium Swallowing Study (35656). Evaluation: Modified Barium Swallow Evaluation (04251) Swallow / Dysphagia (97458): Skilled Intervention: Provided education related to a typical swallowing mechanism in a compare and contrast manner compared to this patient's current skill set. , Educated and advised patient / caregiver on texture and liquid consistency recommendations., Instructed patient / caregiver on recommended compensatory strategies to maximize safety with oral intake while maintaining nutrition, hydration and medication stability. - video review & education regarding findings from today's MBSS study & suggested plans fortreatment were provided to the Patient through verbal instructions, images & demo Education regarding findings from today's Modified Barium Swallowing study (fluoroscopic study) andsuggested plans for treatment were provided to the Pt & Grandson through verbal / written instruction, images and/or demonstration. Pt & Grandson were able to demonstrate understanding of education provided this date. Billing: Modified Barium Swallow (76740) and Dysphagia Treatment (82005) Total time: 30 minutes Session Start Time : 1030 Session Stop Time : 1100 Meliza Wadsworth CCC-FLORY documented in this encounterTr[facility]-13-[facility]25 History of Present illness Narrative* Albina Boles RT(R) - 11/09/2024 10:30 AM EST Radiology Service Progress Note PATIENT NAME: Telma Tineo DATE OF SERVICE: November 09, 2024 TIME: 12:34 PM PATIENT IDENTITY VERIFICATION COMPLETED USING TWO (2) IDENTIFIERS: Name and Date of confirmedby patient verbally. FALL SCREENING: Has the patient had 2 falls in the last year or 1 fall with injury or currently using an Ambulatory Assistive Device (Walker, Cane, Wheelchair, Crutches, etc.)? No PATIENT GENDER DATA: Assigned female at . status: : No status:NO. PATIENT RELEVANT IMPLANT DATA REVIEWED: Not Applicable PATIENT PRESENTS WITH AN IMPLANTABLE OR ATTACHED HAT AND CAP DRYING ROOM ATTENDANT: No RADIOLOGY DEPARTMENT: General X-ray: Exam(s) Completed: GI/ Procedure(s): Modified barium swallowwith barium contrast PERIPHERAL IV DATA: Not applicable SIGNED BY: RT Oliverio(Dylan) November 09, 2024 12:34 PM documented in this encounterTr[facility]01-13-2025 NoteHNO ID: [id number] Author: ALBINA BOLES RT(R) Service: Radiology Author Type: Technologist Type: Progress Notes Filed: 11/09/2024 12:34 Note Text: Radiology Service Progress Note PATIENT NAME: Telma Tineo DATE OF SERVICE: November 09, 2024 TIME: 12:34 PM PATIENT IDENTITY VERIFICATION COMPLETED USING TWO (2) IDENTIFIERS: Name and Date of confirmed by patient verbally. FALL SCREENING: Has the patient had 2 falls in the last year or 1 fall with injury or currently using an Ambulatory Assistive Device (Walker, Cane, Wheelchair, Crutches, etc.)? No PATIENT GENDER DATA: Assigned female at . status: : No status: NO. PATIENT RELEVANT IMPLANT DATA REVIEWED: Not Applicable PATIENT PRESENTS WITH AN IMPLANTABLE OR ATTACHED HAT AND CAP DRYING ROOM ATTENDANT: No RADIOLOGY DEPARTMENT: General X-ray: Exam(s) Completed: GI/ Procedure(s): Modified barium swallow with barium contrast PERIPHERAL IV DATA: Not applicable SIGNED BY: RT Oliverio(R) November 09, 2024 12:34 PMChildren[facility] For [id number] Telephone encounter Note* Telephone Encounter - Li Allison MA - 11/06/2024 12:52 PM EST Spoke with patients Timothy rayo. Informed and verbalized understanding. Endo appt already scheduled. Advised to gets labs next week. Sending to schedulers for US. Li Allison MA [facility]01-10-2025 Miscellaneous Notes* Telephone Encounter - Li Allison MA - 11/06/2024 12:52 PM EST Spoke with patients Timothy rayo. Informed and verbalized understanding. Endo appt already scheduled. Advised to gets labs next week. Sending to schedulers for US. Li Allison MA * Telephone Encounter - Henok Martinez MD - 11/06/2024 11:22 AM EST OK set up for endo. Call if pain worsens, light diet. Recheck lipase and follow up next week. Avoid any etoh. Get ruq us. * Telephone Encounter - Nat Marcelo RN - 11/06/2024 11:01 AM EST Patient's son Timothy notified of results and provider's instructions. Patient's son verbalizes understanding. Timothy states that the stomach pain is the same as she was having. Nat Marcelo RN * Telephone Encounter - Daina Ríos RN - 11/06/2024 9:56 AM EST Called and left a voicemail for the Patient and her daughter Sujata to call back and ask for a nurse to receive the providers message. Daina Ríos RN * Telephone Encounter - Henok Martinez MD - 11/06/2024 9:47 AM EST Sugars are way to high, see endo. Lipase or pancreatic enzyme is very mildly up. How is her stomach pain? Let me know [facility] Telephone encounter Note * Telephone Encounter - Henok Martinez MD - 11/06/2024 11:22 AM EST OK set up for endo. Call if pain worsens, light diet. Recheck lipase and follow up next week. Avoid any etoh. Get ruq us. [facility]01-10-2025 Telephone encounter Note* Telephone Encounter - Nat Marcelo RN - 11/06/2024 11:01 AM EST Patient's son Timothy notified of results and provider's instructions. Patient's son verbalizes understanding. Timothy states that the stomach pain is the same as she was having. Nat Marcelo RN [facility]01-10-2025 Telephone encounter Note* Telephone Encounter - Daina Ríos RN - 11/06/2024 9:56 AM EST Called and left a voicemail for the Patient and her daughter Sujata to call back and ask for a nurse to receive the providers message. Daina Ríos RN [facility]01-10-2025 Telephone encounter Note* Telephone Encounter - Henok Martinez MD - 11/06/2024 9:47 AM EST Sugars are way to high, see endo. Lipase or pancreatic enzyme is very mildly up. How is her stomach pain? Let me know [facility]01-09-2025 History of Present illness Narrative* Srikanth Martinez RT(Dylan) - 11/05/2024 9:30 AM EST Radiology Service Progress Note PATIENT NAME: Telma Tineo DATE OF SERVICE: November 05, 2024 TIME: 9:19 AM PATIENT IDENTITY VERIFICATION COMPLETED USING TWO (2) IDENTIFIERS: Name and Date of confirmedby patient verbally. FALL SCREENING: Has the patient had 2 falls in the last year or 1 fall with injury or currently using an Ambulatory Assistive Device (Walker, Cane, Wheelchair, Crutches, etc.)? No PATIENT GENDER DATA: Female. status: : No status: NO. PATIENT RELEVANT IMPLANT DATA REVIEWED: Not Applicable PATIENT PRESENTS WITH AN IMPLANTABLE OR ATTACHED HAT AND CAP DRYING ROOM ATTENDANT: No RADIOLOGY DEPARTMENT: General X-ray: Exam(s) Completed: Chest X-Ray PERIPHERAL IV DATA: Not applicable SIGNED BY: RT Rambo(Dylan) November 05, 2024 9:19 AM documented in [facility] encounterTr[facility]25 NoteHNO ID: [id number] Author: SRIKANTH MARTINEZ RT (R) Service: Radiology Author Type: Technologist Type: Progress Notes Filed: 11/05/2024 09:25 Note Text: Radiology Service Progress Note PATIENT NAME: Telma Tineo DATE OF SERVICE: November 05, 2024 TIME: 9:19 AM PATIENT IDENTITY VERIFICATION COMPLETED USING TWO (2) IDENTIFIERS: Name and Date of confirmed by patient verbally. FALL SCREENING: Has the patient had 2 falls in the last year or 1 fall with injury or currently using an Ambulatory Assistive Device (Walker, Cane, Wheelchair, Crutches, etc.)? No PATIENT GENDER DATA: Female. status: : No status: NO. PATIENT RELEVANT IMPLANT DATA REVIEWED: Not Applicable PATIENT PRESENTS WITH AN IMPLANTABLE OR ATTACHED HAT AND CAP DRYING ROOM ATTENDANT: No RADIOLOGY DEPARTMENT: General X-ray: Exam(s) Completed: Chest X-Ray PERIPHERAL IV DATA: Not applicable SIGNED BY: RT Rambo(R) November 05, 2024 9:19 [facility]01-08-2025 NoteHNO ID: [id number] Author: HENOK MARTINEZ MD Service: ? Author Type: Physician Type: Progress Notes Filed: 11/04/2024 15:49 Note Text: Patient presents with: 6 Month Exam HPI: Patient presents today for office visit for follow up. Mentions pains in her upper abdomen X 1 month. Radiates to both sides underneath her breasts. Pain is pretty constant and described as sharp. States she's been taking pepto-bismol daily. No relief. Having nausea. Difficult for her to eat. Eating sometimes makes pain worse. No vomiting. Some diarrhea. Denies any bloody or black stool. Continues on Protonix daily for GERD. Heartburn controlled. HTN: Does not monitor BP often Denies chest pain and shortness of breath Denies headaches and dizziness Denies palpitations and syncope Denies edema DM: A1c 10.0 6 months ago Due for another A1c Does not monitor her sugars at home Eats mostly rice, beans and meat. Lots of fruits and veggies. Following Cardiology. Continues on Eliquis. Had some numbness on her left side. Saw neurology. Ordered therapy on her neck. Is doing better. MEDICATIONS: Current Outpatient Medications Medication Sig cyclobenzaprine (FLEXERIL) 5 mg tablet Take 1 tablet by mouth two times a day as needed for muscle spasm. PEG 400-propylene glycol (SYSTANE ULTRA) 0.4-0.3 % ophthalmic solution Use 1 Drop in both eyes three times a day. Artificial Tear, Hypromellose, (SYSTANE GEL) 0.3 % gel Use 1 Drop in both eyes daily at bedtime. atorvastatin (LIPITOR) 20 mg tablet Take 1 tablet by mouth once daily. ELIQUIS 5 mg tab(s) Take 5 mg by mouth two times a day. pantoprazole DR (PROTONIX) 40 mg tablet Take 1 tablet by mouth once daily. benzocaine-menthol (CEPACOL) 15-2.6 mg lozg lozenge Take 1 Lozenge by mouth every 4 hours as needed for pain. fluticasone-vilanterol (BREO ELLIPTA) 100-25 mcg/dose inhaler Inhale 1 Inhalation as instructed once daily. Promethazine-DM (PHENERGAN-DM) 6.25-15 mg/5 mL syrup Take 5 mL by mouth four times a day as needed. metoprolol tartrate, short acting, (LOPRESSOR) 50 mg tablet Take 1.5 tablets by mouth two times a day. losartan (COZAAR) 100 mg tablet Take 1 tablet by mouth once daily. amLODIPine (NORVASC) 10 mg tablet Take 10 mg by mouth once daily. metFORMIN (GLUCOPHAGE) 500 mg tablet Take 2 tablets by mouth two times a day with meals. Blood Pressure Test Kit-Large (Mapidy ARM BP MONITOR) 1 Each once daily. Methylsulfonylmethane (MSM) 1,000 mg cap Take 1 capsule by mouth once daily. No current facility-administered medications for this visit. ALLERGIES: ALLERGIES Allergen Reactions Penicillins Anaphylaxis Tetracycline Rash Tramadol Intolerance Trembling PAST MEDICAL HISTORY Diagnosis Date Allergies Lundberg's palsy Bronchiectasis (HCC) Gastroesophageal reflux disease without esophagitis History of CVA (cerebrovascular accident) Mild intermittent asthma without complication Primary hypertension Type 2 diabetes mellitus without complication, without long-term current use of insulin (HCC) PAST SURGICAL HISTORY Procedure Laterality Date APPENDECTOMY CATARACT EXTRACTION HX COLONOSCOPY SCREENING 10/04/2022 no specimens collected, No further screening colonoscopies required HEMORRHOIDECTOMY HYSTERECTOMY HX without bso PAST SURGICAL HISTORY OF ? repair of cystocele RHINOPLASTY N/A TONSILLECTOMY AND ADENOIDECTOMY FAMILY HISTORY Problem Relation Age of Onset Lung Cancer Father Pancreatic Cancer Mother Heart disease Son No Ocular Disease No Family History Social History Tobacco Use Smoking status: Former Smokeless tobacco: Never Tobacco comments: Light smoker for 7 years in early adulthood Vaping Use Vaping status: Never Used Substance Use Topics Alcohol use: Not Currently Drug use: Never Reviewed current medications, allergies, past medical history, surgical history, family history and social history today. REVIEW OF SYSTEMS On follow up has noted some hemoptysis since ill in April. No fever or chills. All other reviewed and negative other than HPI. HEALTH MAINTENANCE: Reviewed health maintenance issues today and recommended the following in detail. HbA1C due on 08/01/2024 Urine Albumin:Creatinine Ratio due on 09/17/2024 LDL Cholesterol due on 09/17/2024 Advance Directive Discussion due on 10/28/2024 VITALS: BP 110/50 Pulse 81 Ht 149.9 cm (4' 11) Wt 72.1 kg (159 lb) SpO2 98% BMI 32.11 kg/m? Last 4 Encounter Wt Readings: Date: Wt: 10/13/2024 73.5 kg (162 lb) 07/01/2024 73.5 kg (162 lb) 06/05/2024 73.5 kg (162 lb) 05/01/2024 75.3 kg (166 lb) PHYSICAL EXAMINATION: General appearance: Well appearing, alert, in no acute distress, well-hydrated, well nourished. Skin: Skin color, texture, turgor normal, no suspicious rashes or lesions Head: Normocephalic, no masses, lesions, tenderness or abnormalities Lungs: Lungs clear to auscultati (more content not included)...[facility]01-08-2025 History of Present illness Narrative* Henok Martinez MD - 11/04/2024 3:15 PM EST Patient presents with: 6 Month Exam HPI: Patient presents today for office visit for follow up. Mentions pains in her upper abdomen X 1 month. Radiates to both sides underneath her breasts. Pain is pretty constant and described as sharp. States she's been taking pepto-bismol daily. No relief. Having nausea. Difficult for her to eat. Eating sometimes makes pain worse. No vomiting. Some diarrhea. Denies any bloody or black stool. Continues on Protonix daily for GERD. Heartburn controlled. HTN: Does not monitor BP often Denies chest pain and shortness of breath Denies headaches and dizziness Denies palpitations and syncope Denies edema DM: A1c 10.0 6 months ago Due for another A1c Does not monitor her sugars at home Eats mostly rice, beans and meat. Lots of fruits and veggies. Following Cardiology. Continues on Eliquis. Had some numbness on her left side. Saw neurology. Ordered therapy on her neck. Is doing better. MEDICATIONS: Current Outpatient Medications Medication Sig cyclobenzaprine (FLEXERIL) 5 mg tablet Take 1 tablet by mouth two times a day as needed for muscle spasm. PEG 400-propylene glycol (SYSTANE ULTRA) 0.4-0.3 % ophthalmic solution Use 1 Drop in both eyes three times a day. Artificial Tear, Hypromellose, (SYSTANE GEL) 0.3 % gel Use 1 Drop in both eyes daily at bedtime. atorvastatin (LIPITOR) 20 mg tablet Take 1 tablet by mouth once daily. ELIQUIS 5 mg tab(s) Take 5 mg by mouth two times a day. pantoprazole DR (PROTONIX) 40 mg tablet Take 1 tablet by mouth once daily. benzocaine-menthol (CEPACOL) 15-2.6 mg lozg lozenge Take 1 Lozenge by mouth every 4 hours as neededfor pain. fluticasone-vilanterol (BREO ELLIPTA) 100-25 mcg/dose inhaler Inhale 1 Inhalation as instructed once daily. Promethazine-DM (PHENERGAN-DM) 6.25-15 mg/5 mL syrup Take 5 mL by mouth four times a day as needed. metoprolol tartrate, short acting, (LOPRESSOR) 50 mg tablet Take 1.5 tablets by mouth two times a day. losartan (COZAAR) 100 mg tablet Take 1 tablet by mouth once daily. amLODIPine (NORVASC) 10 mg tablet Take 10 mg by mouth once daily. metFORMIN (GLUCOPHAGE) 500 mg tablet Take 2 tablets by mouth two times a day with meals. Blood Pressure Test Kit-Large (Mapidy ARM BP MONITOR) 1 Each once daily. Methylsulfonylmethane (MSM) 1,000 mg cap Take 1 capsule by mouth once daily. No current facility-administered medications for this visit. ALLERGIES: ALLERGIES Allergen Reactions Penicillins Anaphylaxis Tetracycline Rash Tramadol Intolerance Trembling PAST MEDICAL HISTORY Diagnosis Date Allergies Lundberg's palsy Bronchiectasis (HCC) Gastroesophageal reflux disease without esophagitis History of CVA (cerebrovascular accident) Mild intermittent asthma without complication Primary hypertension Type 2 diabetes mellitus without complication, without long-term current use of insulin (HCC) PAST SURGICAL HISTORY Procedure Laterality Date APPENDECTOMY CATARACT EXTRACTION HX COLONOSCOPY SCREENING 10/04/2022 no specimens collected, No further screening colonoscopies required HEMORRHOIDECTOMY HYSTERECTOMY HX without bso PAST SURGICAL HISTORY OF ? repair of cystocele RHINOPLASTY N/A TONSILLECTOMY & ADENOIDECTOMY <AGE 12 FAMILY HISTORY Problem Relation Age of Onset Lung Cancer Father Pancreatic Cancer Mother Heart disease Son No Ocular Disease No Family History Social History Tobacco Use Smoking status: Former Smokeless tobacco: Never Tobacco comments: Light smoker for 7 years in early adulthood Vaping Use Vaping status: Never Used Substance Use Topics Alcohol use: Not Currently Drug use: Never Reviewed current medications, allergies, past medical history, surgical history, family history andsocial history today. REVIEW OF SYSTEMS On follow up has noted some hemoptysis since ill in April. No fever or chills. All other reviewed and negative other than HPI. HEALTH MAINTENANCE: Reviewed health maintenance issues today and recommended the following in detail. HbA1C due on 08/01/2024 Urine Albumin:Creatinine Ratio due on 09/17/2024 LDL Cholesterol due on 09/17/2024 Advance Directive Discussion due on 10/28/2024 VITALS: BP 110/50 Pulse 81 Ht 149.9 cm (4' 11) Wt 72.1 kg (159 lb) SpO2 98% BMI 32.11 kg/m Last 4 Encounter Wt Readings: Date: Wt: 10/13/2024 73.5 kg (162 lb) 07/01/2024 73.5 kg (162 lb) 06/05/2024 73.5 kg (162 lb) 05/01/2024 75.3 kg (166 lb) PHYSICAL EXAMINATION: General appearance: Well appearing, alert, in no acute distress, well-hydrated, well nourished. Skin: Skin color, texture, turgor normal, no suspicious rashes or lesions Head: Normocephalic, no masses, lesions, tenderness or abnormalities Lungs: Lungs clear to auscultation. No wheezing, rhonchi, rales Heart: RRR without murmur, gallop, or rubs. No ectopy Abdomen: Normal abdominal exam, Abdomen soft, non-tender. Bowel sounds normal. No masses, organomegaly Extremities: No deformities, edema, skin discoloration, clubbing or cyanosis. Good capillary refill. Musculoskeletal: No joint swelling, deformity, or tenderness ASSESSMENT/PLAN: 1. Cerebrovascular accident (CVA), unspecified mechanism (HCC) - ICD9: 434.91, ICD10: I63.9 (primary diagnosis) - stable. 2. Type 2 diabetes mellitus without complication, without long-term current use of insulin (HCC) - ICD9: 250.00, ICD10: E11.9 - continue meds. - HEMOGLOBIN A1C - LIPID PANEL BASIC - ALBUMIN/CREATININE RATIO, URINE 3. Atrial fibrillation, unspecified type (HCC) - ICD9: 427.31, ICD10: I48.91 -stable. 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 5. Primary hypertension - ICD9: 401.9, ICD10: I10 - Controlled - Continue current medications - COMPLETE BLOOD COUNT AND DIFFERENTIAL - COMPREHENSIVE METABOLIC PANEL 6. Hyperlipidemia, unspecified hyperlipidemia type - ICD9: 272.4, ICD10: E78.5 - stable. 7. Bronchiectasis without complication (HCC) - ICD9: 494.0, ICD10: J47.9 - stable 8. Gastroesophageal reflux disease without esophagitis - ICD9: 530.81, ICD10: K21.9 -stable 9. History of CVA (cerebrovascular accident) - ICD9: V12.54, ICD10: Z86.73 -as above. 10. assisted current use of anticoagulant therapy - ICD9: V58.61, ICD10: Z79.01 - stable. 11. Epigastric pain - ICD9: 789.06, ICD10: R10.13 - increase protonix. Consider gi. Recheck one month. - LIPASE - US ABD RIGHT UPPER QUADRANT 12.hemoptysis Get xray now and see Dr Galindo Martinez MD [facility] Instructions* Patient Instructions* Virginia Reina APRN.[employer] - 10/13/2024 2:58 PM EST 1) Levaquin 500 mg daily for 7 days 2) Tessalon (benzonatate) 100 mg 3 x days as needed for cough 3) See Dr. Martinez in October as scheduled 4) Modified barium swallow for dysphagia documented in this encounterTr[facility]12-17-2024 NoteHNO ID: [id number] Author: VIRGINIA REINA APRN.NÉSTOR Service: ? Author Type: Clinical Nurse Specialist Type: Progress Notes Filed: 10/13/2024 15:06 Note Text: This is a 84 year old female who presents today with: Patient presents with: Acute Visit: Productive cough for 4 days. Short of breath. Left ear pain, headache. HISTORY OF PRESENT ILLNESS: Telma Tineo is a 84 year old female. Patient presents with: Acute Visit: Productive cough for 4 days. Short of breath. Left ear pain, headache. Started with cough, head and chest congestion and chills on Saturday. Tussin not helping. A lot of productive phlegm. Yellow. No N/V Some body aches. + Headache. Daughter noticed some wheezing For months, food gets caught in throat PAST MEDICAL HISTORY: PAST MEDICAL HISTORY Diagnosis Date Allergies Lundberg's palsy Bronchiectasis (HCC) Gastroesophageal reflux disease without esophagitis History of CVA (cerebrovascular accident) Mild intermittent asthma without complication Primary hypertension Type 2 diabetes mellitus without complication, without long-term current use of insulin (HCC) PAST SURGICAL HISTORY Procedure Laterality Date APPENDECTOMY CATARACT EXTRACTION HX COLONOSCOPY SCREENING 10/04/2022 no specimens collected, No further screening colonoscopies required HEMORRHOIDECTOMY HYSTERECTOMY HX without bso PAST SURGICAL HISTORY OF ? repair of cystocele RHINOPLASTY N/A TONSILLECTOMY AND ADENOIDECTOMY ALLERGIES Penicillins, Tetracycline, and Tramadol MEDICATIONS Current Outpatient Medications Medication Sig cyclobenzaprine (FLEXERIL) 5 mg tablet Take 1 tablet by mouth two times a day as needed for muscle spasm. PEG 400-propylene glycol (SYSTANE ULTRA) 0.4-0.3 % ophthalmic solution Use 1 Drop in both eyes three times a day. Artificial Tear, Hypromellose, (SYSTANE GEL) 0.3 % gel Use 1 Drop in both eyes daily at bedtime. atorvastatin (LIPITOR) 20 mg tablet Take 1 tablet by mouth once daily. ELIQUIS 5 mg tab(s) Take 5 mg by mouth two times a day. pantoprazole DR (PROTONIX) 40 mg tablet Take 1 tablet by mouth once daily. benzocaine-menthol (CEPACOL) 15-2.6 mg lozg lozenge Take 1 Lozenge by mouth every 4 hours as needed for pain. fluticasone-vilanterol (BREO ELLIPTA) 100-25 mcg/dose inhaler Inhale 1 Inhalation as instructed once daily. Promethazine-DM (PHENERGAN-DM) 6.25-15 mg/5 mL syrup Take 5 mL by mouth four times a day as needed. metoprolol tartrate, short acting, (LOPRESSOR) 50 mg tablet Take 1.5 tablets by mouth two times a day. losartan (COZAAR) 100 mg tablet Take 1 tablet by mouth once daily. amLODIPine (NORVASC) 10 mg tablet Take 10 mg by mouth once daily. metFORMIN (GLUCOPHAGE) 500 mg tablet Take 2 tablets by mouth two times a day with meals. Blood Pressure Test Kit-Large (Mapidy ARM BP MONITOR) 1 Each once daily. Methylsulfonylmethane (MSM) 1,000 mg cap Take 1 capsule by mouth once daily. No current facility-administered medications for this visit. FAMILY HISTORY Problem Relation Age of Onset Lung Cancer Father Pancreatic Cancer Mother Heart disease Son No Ocular Disease No Family History Social History Tobacco Use Smoking status: Former Smokeless tobacco: Never Tobacco comments: Light smoker for 7 years in early adulthood Vaping Use Vaping status: Never Used Substance Use Topics Alcohol use: Not Currently Drug use: Never EXAM: BP 124/68 Pulse 67 Temp 37.4 ?C (99.3 ?F) (Right Tympanic) Resp 16 Wt 73.5 kg (162 lb) SpO2 97% BMI 32.72 kg/m? PHYSICAL EXAM: Physical Exam Vitals reviewed. Constitutional: Appearance: Normal appearance. HENT: Head: Normocephalic. Right Ear: Tympanic membrane, ear canal and external ear normal. There is no impacted cerumen. Left Ear: Tympanic membrane, ear canal and external ear normal. There is no impacted cerumen. Nose: No congestion or rhinorrhea. Mouth/Throat: Mouth: Mucous membranes are moist. Pharynx: Oropharynx is clear. No oropharyngeal exudate or posterior oropharyngeal erythema. Cardiovascular: Rate and Rhythm: Normal rate and regular rhythm. Pulses: Normal pulses. Heart sounds: Normal heart sounds. Pulmonary: Effort: Pulmonary effort is normal. Breath sounds: Normal breath sounds. Comments: Positive egophony bronchial Abdominal: Palpations: Abdomen is soft. Musculoskeletal: General: Normal range of motion. Comments: Moves all ext. And walks w/o assistive device Skin: General: Skin is warm and dry. Neurological: Mental Status: She is alert and oriented to person, place, and time. LABS: ASSESSMENT/PLAN: 1. Acute bronchitis, unspecified organism - ICD9: 466.0, ICD10: J20.9 with possible pneumonia PCN allergy and tetracyclines - LEVOFLOXACIN 500 MG TABLET for 5 days - BENZONATATE 100 MG CAPSULE 3 x day as needed for cough 2. Oropharyngeal dysphagia - ICD9: 787.22, ICD10: R13.12 Hx of CVA - Will get swa (more content not included)...[facility] 10-13-2024 History of Present illness Narrative* Virginia Reina APRN.[facility] - 10/13/2024 2:48 PM EST This is a 84 year old female who presents today with: Patient presents with: Acute Visit: Productive cough for 4 days. Short of breath. Left ear pain, headache. HISTORY OF PRESENT ILLNESS: Telma Tineo is a 84 year old female. Patient presents with: Acute Visit: Productive cough for 4 days. Short of breath. Left ear pain, headache. Started with cough, head and chest congestion and chills on Saturday. Tussin not helping. A lot of productive phlegm. Yellow. No N/V Some body aches. + Headache. Daughter noticed some wheezing For months, food gets caught in throat PAST MEDICAL HISTORY: PAST MEDICAL HISTORY Diagnosis Date Allergies Lundberg's palsy Bronchiectasis (HCC) Gastroesophageal reflux disease without esophagitis History of CVA (cerebrovascular accident) Mild intermittent asthma without complication Primary hypertension Type 2 diabetes mellitus without complication, without long-term current use of insulin (HCC) PAST SURGICAL HISTORY Procedure Laterality Date APPENDECTOMY CATARACT EXTRACTION HX COLONOSCOPY SCREENING 10/04/2022 no specimens collected, No further screening colonoscopies required HEMORRHOIDECTOMY HYSTERECTOMY HX without bso PAST SURGICAL HISTORY OF ? repair of cystocele RHINOPLASTY N/A TONSILLECTOMY & ADENOIDECTOMY <AGE 12 ALLERGIES Penicillins, Tetracycline, and Tramadol MEDICATIONS Current Outpatient Medications Medication Sig cyclobenzaprine (FLEXERIL) 5 mg tablet Take 1 tablet by mouth two times a day as needed for muscle spasm. PEG 400-propylene glycol (SYSTANE ULTRA) 0.4-0.3 % ophthalmic solution Use 1 Drop in both eyes three times a day. Artificial Tear, Hypromellose, (SYSTANE GEL) 0.3 % gel Use 1 Drop in both eyes daily at bedtime. atorvastatin (LIPITOR) 20 mg tablet Take 1 tablet by mouth once daily. ELIQUIS 5 mg tab(s) Take 5 mg by mouth two times a day. pantoprazole DR (PROTONIX) 40 mg tablet Take 1 tablet by mouth once daily. benzocaine-menthol (CEPACOL) 15-2.6 mg lozg lozenge Take 1 Lozenge by mouth every 4 hours as neededfor pain. fluticasone-vilanterol (BREO ELLIPTA) 100-25 mcg/dose inhaler Inhale 1 Inhalation as instructed once daily. Promethazine-DM (PHENERGAN-DM) 6.25-15 mg/5 mL syrup Take 5 mL by mouth four times a day as needed. metoprolol tartrate, short acting, (LOPRESSOR) 50 mg tablet Take 1.5 tablets by mouth two times a day. losartan (COZAAR) 100 mg tablet Take 1 tablet by mouth once daily. amLODIPine (NORVASC) 10 mg tablet Take 10 mg by mouth once daily. metFORMIN (GLUCOPHAGE) 500 mg tablet Take 2 tablets by mouth two times a day with meals. Blood Pressure Test Kit-Large (Mapidy ARM BP MONITOR) 1 Each once daily. Methylsulfonylmethane (MSM) 1,000 mg cap Take 1 capsule by mouth once daily. No current facility-administered medications for this visit. FAMILY HISTORY Problem Relation Age of Onset Lung Cancer Father Pancreatic Cancer Mother Heart disease Son No Ocular Disease No Family History Social History Tobacco Use Smoking status: Former Smokeless tobacco: Never Tobacco comments: Light smoker for 7 years in early adulthood Vaping Use Vaping status: Never Used Substance Use Topics Alcohol use: Not Currently Drug use: Never EXAM: BP 124/68 Pulse 67 Temp 37.4 C (99.3 F) (Right Tympanic) Resp 16 Wt 73.5 kg (162 lb) [id number]% BMI 32.72 kg/m PHYSICAL EXAM: Physical Exam Vitals reviewed. Constitutional: Appearance: Normal appearance. HENT: Head: Normocephalic. Right Ear: Tympanic membrane, ear canal and external ear normal. There is no impacted cerumen. Left Ear: Tympanic membrane, ear canal and external ear normal. There is no impacted cerumen. Nose: No congestion or rhinorrhea. Mouth/Throat: Mouth: Mucous membranes are moist. Pharynx: Oropharynx is clear. No oropharyngeal exudate or posterior oropharyngeal erythema. Cardiovascular: Rate and Rhythm: Normal rate and regular rhythm. Pulses: Normal pulses. Heart sounds: Normal heart sounds. Pulmonary: Effort: Pulmonary effort is normal. Breath sounds: Normal breath sounds. Comments: Positive egophony bronchial Abdominal: Palpations: Abdomen is soft. Musculoskeletal: General: Normal range of motion. Comments: Moves all ext. And walks w/o assistive device Skin: General: Skin is warm and dry. Neurological: Mental Status: She is alert and oriented to person, place, and time. LABS: ASSESSMENT/PLAN: 1. Acute bronchitis, unspecified organism - ICD9: 466.0, ICD10: J20.9 with possible pneumonia PCN allergy and tetracyclines - LEVOFLOXACIN 500 MG TABLET for 5 days - BENZONATATE 100 MG CAPSULE 3 x day as needed for cough 2. Oropharyngeal dysphagia - ICD9: 787.22, ICD10: R13.12 Hx of CVA - Will get swallow evaluation Discussed treatment plan and patient voices understanding. Patient's questions answered appropriately. Medications and potential side effects were discussed and patient voices understanding. Return to the office as scheduled or as needed for worsening/no improvement. 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 Author Type: Physician Type: Progress Notes Filed: 07/01/2024 17:10 Note Text: Patient presents with: ER F/U HPI: Patient presents today for office visit for HOSPITAL/ER FOLLOW UP: Reason for visit: Multiple somatic complaints ranging from left side of head and face, left side of neck and left arm pain with chest pain. Which facility: [facility] Date of visit: 06/25/24 Diagnosis: Cervical radiculopathy Testing done: EKG showed atrial fibrillation without acute ST changes. Labs negative. CT brain showed no acute process. DJD shown on CT cervical spine. CXR normal. Treatment given: Given morphine and zofran while in ER. Sent home with Tramadol. Current symptoms: Still with left sided neck pain and into left shoulder blade. No longer taking the Tramadol due to contraindications with her other meds. Caused some side effects when taken together. Did take an ibuprofen. Advised to avoid while on eliquis. Worse with movement. Did go into her arm and hand. Is more in the shoulder blade. No trauma. Her chest feels well. MEDICATIONS: Current Outpatient Medications Medication Sig PEG 400-propylene glycol (SYSTANE ULTRA) 0.4-0.3 % ophthalmic solution Use 1 Drop in both eyes three times a day. Artificial Tear, Hypromellose, (SYSTANE GEL) 0.3 % gel Use 1 Drop in both eyes daily at bedtime. atorvastatin (LIPITOR) 20 mg tablet Take 1 tablet by mouth once daily. ELIQUIS 5 mg tab(s) Take 5 mg by mouth two times a day. pantoprazole DR (PROTONIX) 40 mg tablet Take 1 tablet by mouth once daily. benzocaine-menthol (CEPACOL) 15-2.6 mg lozg lozenge Take 1 Lozenge by mouth every 4 hours as needed for pain. fluticasone-vilanterol (BREO ELLIPTA) 100-25 mcg/dose inhaler Inhale 1 Inhalation as instructed once daily. Promethazine-DM (PHENERGAN-DM) 6.25-15 mg/5 mL syrup Take 5 mL by mouth four times a day as needed. metoprolol tartrate, short acting, (LOPRESSOR) 50 mg tablet Take 1.5 tablets by mouth two times a day. losartan (COZAAR) 100 mg tablet Take 1 tablet by mouth once daily. amLODIPine (NORVASC) 10 mg tablet Take 10 mg by mouth once daily. metFORMIN (GLUCOPHAGE) 500 mg tablet Take 2 tablets by mouth two times a day with meals. Blood Pressure Test Kit-Large (Mapidy ARM BP MONITOR) 1 Each once daily. Methylsulfonylmethane (MSM) 1,000 mg cap Take 1 capsule by mouth once daily. No current facility-administered medications for this visit. ALLERGIES: ALLERGIES Allergen Reactions Penicillins Anaphylaxis Tetracycline Rash PAST MEDICAL HISTORY No date: Allergies No date: Lundberg's palsy No date: Bronchiectasis (HCC) No date: Gastroesophageal reflux disease without esophagitis No date: History of CVA (cerebrovascular accident) No date: Mild intermittent asthma without complication No date: Primary hypertension No date: Type 2 diabetes mellitus without complication, without long- term current use of insulin (HCC) PAST SURGICAL HISTORY No date: APPENDECTOMY No date: CATARACT EXTRACTION HX 10/04/2022: COLONOSCOPY SCREENING Comment: no specimens collected, No further screening colonoscopies required No date: HEMORRHOIDECTOMY No date: HYSTERECTOMY HX Comment: without bso No date: PAST SURGICAL HISTORY OF Comment: ? repair of cystocele No date: RHINOPLASTY; N/A No date: TONSILLECTOMY AND ADENOIDECTOMY FAMILY HISTORY Problem Relation Age of Onset Lung Cancer Father Pancreatic Cancer Mother Heart disease Son No Ocular Disease No Family History Social History Tobacco Use Smoking status: Former Smokeless tobacco: Never Tobacco comments: Light smoker for 7 years in early adulthood Vaping Use Vaping status: Never Used Substance Use Topics Alcohol use: Not Currently Drug use: Never Reviewed current medications, allergies, past medical history, surgical history, family history and social history today. REVIEW OF SYSTEMS All other reviewed and negative other than HPI. HEALTH MAINTENANCE: Reviewed health maintenance issues today and recommended the following in detail. DTaP,Tdap,Td Vaccine(1 - Tdap) Never done Shingrix Vaccine(1 of 2) Never done Covid-19 Vaccine(3 - season) due on 06/28/2024 Influenza Vaccine(1) due on 06/28/2024 VITALS: BP 124/56 Pulse 76 Ht 149.9 cm (4' 11) Wt 73.5 kg (162 lb) SpO2 99% BMI 32.72 kg/m? Last 4 Encounter Wt Readings: Date: Wt: 06/05/2024 73.5 kg (162 lb) 05/01/2024 75.3 kg (166 lb) 03/04/2024 69.9 kg (154 lb) 02/19/2024 74.4 kg (164 lb 0.4 oz) PHYSICAL EXAMINATION: General appearance: Well appearing, alert, in no acute distress, well-hydrated, well nourished. Skin: Skin color, texture, turgor normal, no suspicious rashes or lesions Neck: tender over the trapezius and left posterior cervical muscles. No masses. Extremities: No deformities, edema, skin discoloration, clubbing or cyanosis. Good capillary refill. Muscu (more content not included)...[facility]09-04-2024 History of Present illness Narrative* Henok Martinez MD - 07/01/2024 3:52 PM EDT Patient presents with: ER F/U HPI: Patient presents today for office visit for HOSPITAL/ER FOLLOW UP: Reason for visit: Multiple somatic complaints ranging from left side of head and face, left side ofneck and left arm pain with chest pain. Which facility: [facility] Date of visit: 06/25/24 Diagnosis: Cervical radiculopathy Testing done: EKG showed atrial fibrillation without acute ST changes. Labs negative. CT brain showed no acute process. DJD shown on CT cervical spine. CXR normal. Treatment given: Given morphine and zofran while in ER. Sent home with Tramadol. Current symptoms: Still with left sided neck pain and into left shoulder blade. No longer taking the Tramadol due to contraindications with her other meds. Caused some side effects when taken together. Did take an ibuprofen. Advised to avoid while on eliquis. Worse with movement. Did go into her arm and hand. Is more in the shoulder blade. No trauma. Her chest feels well. MEDICATIONS: Current Outpatient Medications Medication Sig PEG 400-propylene glycol (SYSTANE ULTRA) 0.4-0.3 % ophthalmic solution Use 1 Drop in both eyes three times a day. Artificial Tear, Hypromellose, (SYSTANE GEL) 0.3 % gel Use 1 Drop in both eyes daily at bedtime. atorvastatin (LIPITOR) 20 mg tablet Take 1 tablet by mouth once daily. ELIQUIS 5 mg tab(s) Take 5 mg by mouth two times a day. pantoprazole DR (PROTONIX) 40 mg tablet Take 1 tablet by mouth once daily. benzocaine-menthol (CEPACOL) 15-2.6 mg lozg lozenge Take 1 Lozenge by mouth every 4 hours as neededfor pain. fluticasone-vilanterol (BREO ELLIPTA) 100-25 mcg/dose inhaler Inhale 1 Inhalation as instructed once daily. Promethazine-DM (PHENERGAN-DM) 6.25-15 mg/5 mL syrup Take 5 mL by mouth four times a day as needed. metoprolol tartrate, short acting, (LOPRESSOR) 50 mg tablet Take 1.5 tablets by mouth two times a day. losartan (COZAAR) 100 mg tablet Take 1 tablet by mouth once daily. amLODIPine (NORVASC) 10 mg tablet Take 10 mg by mouth once daily. metFORMIN (GLUCOPHAGE) 500 mg tablet Take 2 tablets by mouth two times a day with meals. Blood Pressure Test Kit-Large (Mapidy ARM BP MONITOR) 1 Each once daily. Methylsulfonylmethane (MSM) 1,000 mg cap Take 1 capsule by mouth once daily. No current facility-administered medications for this visit. ALLERGIES: ALLERGIES Allergen Reactions Penicillins Anaphylaxis Tetracycline Rash PAST MEDICAL HISTORY No date: Allergies No date: Lundberg's palsy No date: Bronchiectasis (HCC) No date: Gastroesophageal reflux disease without esophagitis No date: History of CVA (cerebrovascular accident) No date: Mild intermittent asthma without complication No date: Primary hypertension No date: Type 2 diabetes mellitus without complication, without long- term current use of insulin (HCC) PAST SURGICAL HISTORY No date: APPENDECTOMY No date: CATARACT EXTRACTION HX 10/04/2022: COLONOSCOPY SCREENING Comment: no specimens collected, No further screening colonoscopies required No date: HEMORRHOIDECTOMY No date: HYSTERECTOMY HX Comment: without bso No date: PAST SURGICAL HISTORY OF Comment: ? repair of cystocele No date: RHINOPLASTY; N/A No date: TONSILLECTOMY & ADENOIDECTOMY <AGE 12 FAMILY HISTORY Problem Relation Age of Onset Lung Cancer Father Pancreatic Cancer Mother Heart disease Son No Ocular Disease No Family History Social History Tobacco Use Smoking status: Former Smokeless tobacco: Never Tobacco comments: Light smoker for 7 years in early adulthood Vaping Use Vaping status: Never Used Substance Use Topics Alcohol use: Not Currently Drug use: Never Reviewed current medications, allergies, past medical history, surgical history, family history andsocial history today. REVIEW OF SYSTEMS All other reviewed and negative other than HPI. HEALTH MAINTENANCE: Reviewed health maintenance issues today and recommended the following in detail. DTaP,Tdap,Td Vaccine(1 - Tdap) Never done Shingrix Vaccine(1 of 2) Never done Covid-19 Vaccine(3 - season) due on 06/28/2024 Influenza Vaccine(1) due on 06/28/2024 VITALS: BP 124/56 Pulse 76 Ht 149.9 cm (4' 11) Wt 73.5 kg (162 lb) SpO2 99% BMI 32.72 kg/m Last 4 Encounter Wt Readings: Date: Wt: 06/05/2024 73.5 kg (162 lb) 05/01/2024 75.3 kg (166 lb) 03/04/2024 69.9 kg (154 lb) 02/19/2024 74.4 kg (164 lb 0.4 oz) PHYSICAL EXAMINATION: General appearance: Well appearing, alert, in no acute distress, well-hydrated, well nourished. Skin: Skin color, texture, turgor normal, no suspicious rashes or lesions Neck: tender over the trapezius and left posterior cervical muscles. No masses. Extremities: No deformities, edema, skin discoloration, clubbing or cyanosis. Good capillary refill. Musculoskeletal: No joint swelling, deformity, or tenderness Peripheral pulses: Normal Neuro: Gait normal. Reflexes normal and symmetric. Sensation grossly intact. ASSESSMENT/PLAN: 1. Cervical radicular pain - ICD9: 723.4, ICD10: M54.12 (primary diagnosis) - Discussed risks and benefits of new medication with the patient. Advised them to call if any sideeffects or questions. Red flags for re-assessment reviewed with patient in detail. Call if symptoms worsen at all or if not better in one to two weeks Reviewed diagnosis and treatment options in detail. Questions were answered. Patient expressed understanding of treatment plan. - CONSULT TO PHYSICAL THERAPY - CYCLOBENZAPRINE 5 MG TABLET 2. Atrial fibrillation, unspecified type (HCC) - ICD9: 427.31, ICD10: I48.91 Continue meds. Avoid nsaids. 3. Hyperlipidemia, unspecified hyperlipidemia type - ICD9: 272.4, ICD10: E78.5 - stable. 4. Primary hypertension - ICD9: 401.9, ICD10: I10 - Controlled - Continue current medications 5. Type 2 diabetes mellitus without complication, without long-term current use of insulin (HCC) - ICD9: 250.00, ICD10: E11.9 - follow with endo. 6. History of CVA (cerebrovascular accident) - ICD9: V12.54, ICD10: Z86.73 - stable. Henok Martinez MD documented in this encounterTr[facility]-10-[facility]24 History of Present illness Narrative* Srikanth Martinez RT(Dylan) - 06/06/2024 8:00 AM EDT Radiology Service Progress Note PATIENT NAME: Telma Tineo DATE OF SERVICE: June 06, 2024 TIME: 8:00 AM PATIENT IDENTITY VERIFICATION COMPLETED USING TWO (2) IDENTIFIERS: Name and Date of confirmedby patient verbally. FALL SCREENING: Has the patient had 2 falls in the last year or 1 fall with injury or currently using an Ambulatory Assistive Device (Walker, Cane, Wheelchair, Crutches, etc.)? No PATIENT GENDER DATA: Female. status: : No status: NO. PATIENT RELEVANT IMPLANT DATA REVIEWED: Not Applicable PATIENT PRESENTS WITH AN IMPLANTABLE OR ATTACHED HAT AND CAP DRYING ROOM ATTENDANT: No RADIOLOGY DEPARTMENT: General X-ray: Exam(s) Completed: Rib X-Ray: Right PERIPHERAL IV DATA: Not applicable SIGNED BY: RT Rambo(R) June 06, 2024 8:00 AM documented in this encounterTr[facility]08-10-2024 Miscellaneous Notes* Result Encounter Note - Danielle Taylor PA-C - 06/06/2024 8:00 AM EDT Please call Telma to alert her that her rib xray was normal. No sign of a fracture. documented in this encounterTr[facility]08-10-2024 NoteHNO ID: [id number] Author: SRIKANTH MARTINEZ RT(R) Service: Radiology Author Type: Technologist Type: Progress Notes Filed: 06/06/2024 08:13 Note Text: Radiology Service Progress Note PATIENT NAME: Telma Tineo DATE OF SERVICE: June 06, 2024 TIME: 8:00 AM PATIENT IDENTITY VERIFICATION COMPLETED USING TWO (2) IDENTIFIERS: Name and Date of confirmed by patient verbally. FALL SCREENING: Has the patient had 2 falls in the last year or 1 fall with injury or currently using an Ambulatory Assistive Device (Walker, Cane, Wheelchair, Crutches, etc.)? No PATIENT GENDER DATA: Female. status: : No status: NO. PATIENT RELEVANT IMPLANT DATA REVIEWED: Not Applicable PATIENT PRESENTS WITH AN IMPLANTABLE OR ATTACHED HAT AND CAP DRYING ROOM ATTENDANT: No RADIOLOGY DEPARTMENT: General X-ray: Exam(s) Completed: Rib X-Ray: Right PERIPHERAL IV DATA: Not applicable SIGNED BY: Srikanth Martinez, RT(R) June 06, 2024 8:00 [facility]08-10-2024 Progress note* Result Encounter Note - Danielle Taylor PA-C - 06/06/2024 8:00 AM EDT Please call Telma to alert her that her rib xray was normal. No sign of a fracture. [facility] Work Phone: [phone] 132-951408-09-2024 History of Present illness Narrative* Nancy Medley MD - 06/05/2024 11:45 AM EDT Images from the original note were not included. 0. [facility] [place] Note Patient name: Telma Tineo PCP: Henok Martinez MD CC: follow-up Asthma HPI: Telma Tineo 83 year old female former minimal smoker with PMH significant for CVA, HTN, DM2, GERD, chronic Afib (Eliquis), obesity, longstanding asthma, allergies presenting for follow-up. Current therapy with Breo Ellipta and as needed albuterol. Since her last visit, she was sick with an URI at the end of January into February. She was treated with Zpak and Prenisone without resolution of symptoms. Her PCP prescribed Levaquin and symptoms resolved after. No other ED/urgent care visits since her ESTELLE related to breathing. Today, patient notes SOB with heavy exertion or if hot/humid. No cough or hemoptysis. No wheezing. No nocturnal symptoms. No unintended weight loss. Has mild lower extremity edema. Reports she does not use Breo every day if she's feeling well. She has been using it more lately d/t the heat. Does not use Albuterol. She additionally reports aching pain on her right ribs. Occasionally radiates towards her chest. Pain started 4 days ago but has been constant for the past 2 days. Does note she had some pain in her ribs during her acute illness in February when she was coughing. Pain worse when taking a big breath in. No falls/injury to the site. No rashes/skin lesions. She denies attempting any treatment for relief. DATA: PFT: 09/2022 IMPRESSION: Spirometry is normal. There was not a significant bronchodilator response. Imaging / Diagnostic Studies: Chest xray 05/01/2024 I personally reviewed the images with shows mild eventration of right diaphragm PAST MEDICAL HISTORY No date: Allergies No date: Lundberg's palsy No date: Bronchiectasis ([facility]) No date: Gastroesophageal reflux disease without esophagitis No date: History of CVA (cerebrovascular accident) No date: Mild intermittent asthma without complication No date: Primary hypertension No date: Type 2 diabetes mellitus without complication, without long- term current use of insulin (HCC) ALLERGIES Allergen Reactions Penicillins Anaphylaxis Tetracycline Rash atorvastatin (LIPITOR) 20 mg tablet Take 1 tablet by mouth once daily. ELIQUIS 5 mg tab(s) Take 5 mg by mouth two times a day. PEG 400-propylene glycol (SYSTANE ULTRA) 0.4-0.3 % ophthalmic solution Use 1 Drop in both eyes three times a day. Artificial Tear, Hypromellose, (SYSTANE GEL) 0.3 % gel Use 1 Drop in both eyes daily at bedtime. pantoprazole DR (PROTONIX) 40 mg tablet Take 1 tablet by mouth once daily. benzocaine-menthol (CEPACOL) 15-2.6 mg lozg lozenge Take 1 Lozenge by mouth every 4 hours as neededfor pain. fluticasone-vilanterol (BREO ELLIPTA) 100-25 mcg/dose inhaler Inhale 1 Inhalation as instructed once daily. Promethazine-DM (PHENERGAN-DM) 6.25-15 mg/5 mL syrup Take 5 mL by mouth four times a day as needed. metoprolol tartrate, short acting, (LOPRESSOR) 50 mg tablet Take 1.5 tablets by mouth two times a day. losartan (COZAAR) 100 mg tablet Take 1 tablet by mouth once daily. amLODIPine (NORVASC) 10 mg tablet Take 10 mg by mouth once daily. metFORMIN (GLUCOPHAGE) 500 mg tablet Take 2 tablets by mouth two times a day with meals. Blood Pressure Test Kit-Large (Mapidy ARM BP MONITOR) 1 Each once daily. Methylsulfonylmethane (MSM) 1,000 mg cap Take 1 capsule by mouth once daily. Social History Tobacco Use Smoking status: Former Smokeless tobacco: Never Tobacco comments: Light smoker for 7 years in early adulthood Vaping Use Vaping Use: Never used Substance Use Topics Alcohol use: Not Currently Drug use: Never FAMILY HISTORY Problem Relation Age of Onset Lung Cancer Father Pancreatic Cancer Mother Heart disease Son No Ocular Disease No Family History PAST SURGICAL HISTORY No date: APPENDECTOMY No date: CATARACT EXTRACTION HX 10/04/2022: COLONOSCOPY SCREENING Comment: no specimens collected, No further screening colonoscopies required No date: HEMORRHOIDECTOMY No date: HYSTERECTOMY HX Comment: without bso No date: PAST SURGICAL HISTORY OF Comment: ? repair of cystocele No date: RHINOPLASTY; N/A No date: TONSILLECTOMY & ADENOIDECTOMY <AGE 12 PMH, Social history, family history and surgical history reviewed and updated in EMR REVIEW OF SYSTEMS: CONSTITUTIONAL: No fevers, chills, nightsweats, unintended weight loss. HEENT: Denies frequent or severe headaches, nasal congestion/sinus symptoms. EYES: No diplopia or blurry vision. CARDIOVASCULAR: Occasional palpitations. Ankle edema baseline. No chest pain. PULM: see HPI. GI: No dysphagia/odynophagia, problematic reflux, or changes in stool habits. NEURO: No new balance problems, peripheral weakness/paresthesias or numbness of concern. MUSC-SKEL: Reports right rib pain. No swelling or erythema. PSY: No concerns regarding depression, anxiety or panic. INTEGUMENTARY: No new skin changes (rash, new or changing mole, new growth) PHYSICAL EXAMINATION: BP (P) 124/70 Pulse (P) 67 Resp (P) 18 Wt 73.5 kg (162 lb) SpO2 (P) 100% BMI 32.72 kg/m General Appearance: Elderly, well appearing, alert, in no acute distress, and Overweight. Skin: Skin color, texture, turgor normal, no suspicious rashes or lesions. Head: Normocephalic. Oropharynx: Lips, mucosa, and tongue normal, teeth and gums normal, oropharynx normal. Neck: Supple, no adenopathy. Lungs: Lungs clear to auscultation. No wheezing, rhonchi. Heart: IRRR. Extremities: No deformities, skin discoloration, clubbing or cyanosis. Good capillary refill. Musculoskeletal: Positive findings: reproducible right midaxillary rib pain. Neurologic: Gait normal. Lymph Nodes: No cervical lymphadenopathy and No supraclavicular lymphadenopathy. ASSESSMENT/PLAN: 1. Mild intermittent asthma without complication - ICD9: 493.90, ICD10: J45.20 (primary diagnosis) - Mild intermittent asthma stable - Continue Breo Ellipta, 1 puff once a day. Currently not using every day. Encouraged to use as prescribed. - Continue Albuterol PRN - Avoidance of triggers recommended - Asthma education: Reviewed asthma signs, symptoms and monitoring, Environmental control: avoidance of precipitants and use of allergy medications, and Rinsing after each inhaled steroid use 2. Bronchiectasis without complication (HCC) - ICD9: 494.0, ICD10: J47.9 - currently stable - recommend sputum culture if patient develops further URI symptoms with significant sputum production. 3. Rib pain on right side - ICD9: 786.50, ICD10: R07.81 - right midaxillary rib pain - initially started with URI/cough in January/February, now worse over the past 4 days - XR RIBS/CHEST 3V AP RIB/OBLS/CXR RIGHT Portions of this documentation were copied and pasted from previous office visit notes in order to provide a cohesive continuity of the history. The note has been reviewed and edited and updated as necessary. Angelia Hart APRN.POLE INCISOR OPERATOR Attending Note I have personally performed a face to face assessment of the patient and have reviewed the ROBYN note. I performed a substantive portion of the visit including all aspects of the following: HPI, PMH, lab data, imaging, EMR, physical exam. My gomez findings include: Normal lung exam, no wheezes or crackles. Cardiac irregular rhythm, point tenderness of right rib in mid axillary line. I agree with the assessment and plan Other additions or changes: as edited Signature: Nancy Medley MD Date: 06/05/2024 Time: 3:07 PM Nancy Medley MD [facility] [place] documented in this encounterTr[facility]08-09-2024 NoteHNO ID: [id number] Author: NANCY MEDLEY MD Service: ? Author Type: Physician Type: Progress Notes Filed: 06/05/2024 15:10 Note Text: 0. [facility] [place] Note Patient name: Telma Tineo PCP: Henok Martinez MD CC: follow-up Asthma HPI: Telma Tineo 83 year old female former minimal smoker with PMH significant for CVA, HTN, DM2, GERD, chronic Afib (Eliquis), obesity, longstanding asthma, allergies presenting for follow-up. Current therapy with Breo Ellipta and as needed albuterol. Since her last visit, she was sick with an URI at the end of January into February. She was treated with Zpak and Prenisone without resolution of symptoms. Her PCP prescribed Levaquin and symptoms resolved after. No other ED/urgent care visits since her ESTELLE related to breathing. Today, patient notes SOB with heavy exertion or if hot/humid. No cough or hemoptysis. No wheezing. No nocturnal symptoms. No unintended weight loss. Has mild lower extremity edema. Reports she does not use Breo every day if she's feeling well. She has been using it more lately d/t the heat. Does not use Albuterol. She additionally reports aching pain on her right ribs. Occasionally radiates towards her chest. Pain started 4 days ago but has been constant for the past 2 days. Does note she had some pain in her ribs during her acute illness in February when she was coughing. Pain worse when taking a big breath in. No falls/injury to the site. No rashes/skin lesions. She denies attempting any treatment for relief. DATA: PFT: 09/2022 IMPRESSION: Spirometry is normal. There was not a significant bronchodilator response. 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 ELIQUIS 5 mg tab(s) Take 5 mg by mouth two times a day. PEG 400-propylene glycol (SYSTANE ULTRA) 0.4-0.3 % ophthalmic solution Use 1 Drop in both eyes three times a day. Artificial Tear, Hypromellose, (SYSTANE GEL) 0.3 % gel Use 1 Drop in both eyes daily at bedtime. pantoprazole DR (PROTONIX) 40 mg tablet Take 1 tablet by mouth once daily. benzocaine-menthol (CEPACOL) 15-2.6 mg lozg lozenge Take 1 Lozenge by mouth every 4 hours as needed for pain. fluticasone-vilanterol (BREO ELLIPTA) 100-25 mcg/dose inhaler Inhale 1 Inhalation as instructed once daily. Promethazine-DM (PHENERGAN-DM) 6.25-15 mg/5 mL syrup Take 5 mL by mouth four times a day as needed. metoprolol tartrate, short acting, (LOPRESSOR) 50 mg tablet Take 1.5 tablets by mouth two times a day. losartan (COZAAR) 100 mg tablet Take 1 tablet by mouth once daily. amLODIPine (NORVASC) 10 mg tablet Take 10 mg by mouth once daily. metFORMIN (GLUCOPHAGE) 500 mg tablet Take 2 tablets by mouth two times a day with meals. Blood Pressure Test Kit-Large (Mapidy ARM BP MONITOR) 1 Each once daily. Methylsulfonylmethane (MSM) 1,000 mg cap Take 1 capsule by mouth once daily. Social History Tobacco Use Smoking status: Former Smokeless tobacco: Never Tobacco comments: Light smoker for 7 years in early adulthood Vaping Use Vaping Use: Never used Substance Use Topics Alcohol use: Not Currently Drug use: Never FAMILY HISTORY Problem Relation Age of Onset Lung Cancer Father Pancreatic Cancer Mother Heart disease Son No Ocular Disease No Family History PAST SURGICAL HISTORY No date: APPENDECTOMY No date: CATARACT EXTRACTION HX 10/04/2022: COLONOSCOPY SCREENING Comment: no specimens collected, No further screening colonoscopies required No date: HEMORRHOIDECTOMY No date: HYSTERECTOMY HX Comment: without bso No date: PAST SURGICAL HISTORY OF Comment: ? repair of cystocele No date: RHINOPLASTY; N/A No date: TONSILLECTOMY AND ADENOIDECTOMY PMH, Social history, family history and surgical history reviewed and updated in EMR REVIEW OF SYSTEMS: CONSTITUTIONAL: No fevers, chills, nightsweats, unintended weight loss. HEENT: Denies frequent or severe headaches, nasal congestion/sinus symptoms. EYES: No diplopia or blurry vision. CARDIOVASCULAR: Occasional palpitations. Ankle edema baseline. No chest pain. PULM: see HPI. GI: No dysphagia/odynophagia, problematic reflux, or changes in stool habits. NEURO: No new balance problems, peripheral weakness/paresthesias or numbness of concern. MUSC-SKEL: Reports right rib pain. No swelling (more content not included)... [facility]07-15-2024 Telephone encounter Note* Telephone Encounter - Virginia Doty LPN - 05/11/2024 10:26 AM EDT Prescription Refill Information The patient has been identified by name and date of : Yes Caregiver verified no other encounters exist for this prescription request: Yes Caregiver confirmed with patient/requestor that no other refills are due, in the near future, with this provider at this time: Yes The last office visit in the department: 05/01/2024 Does the patient have a future office visit with this provider/department: Yes Requested Prescriptions Pending Prescriptions Disp Refills atorvastatin (LIPITOR) 20 mg tablet 90 tablet 3 Sig: Take 1 tablet by mouth once daily. Virginia Doty LPN May 11, 2024 10:26 AM [facility]07-15-2024 Miscellaneous Notes* Telephone Encounter - Virginia Doty LPN - 05/11/2024 10:26 AM EDT Prescription Refill Information The patient has been identified by name and date of : Yes Caregiver verified no other encounters exist for this prescription request: Yes Caregiver confirmed with patient/requestor that no other refills are due, in the near future, with this provider at this time: Yes The last office visit in the department: 05/01/2024 Does the patient have a future office visit with this provider/department: Yes Requested Prescriptions Pending Prescriptions Disp Refills atorvastatin (LIPITOR) 20 mg tablet 90 tablet 3 Sig: Take 1 tablet by mouth once daily. Virginia Doty LPN May 11, 2024 10:26 AM [facility] Telephone encounter Note * Telephone Encounter - Li Allison MA - 05/04/2024 2:28 PM EDT Patients girma Aguirre informed and verbalized understanding. Sending to schedulers for Endo consult. Timothy will wait for callback on that. Li Allison MA [facility]07-08-2024 Miscellaneous Notes* Telephone Encounter - Li Allison MA - 05/04/2024 2:28 PM EDT Patients girma Aguirre informed and verbalized understanding. Sending to schedulers for Endo consult. Timothy will wait for callback on that. Li Allison MA * Telephone Encounter - Henok Martinez MD - 05/04/2024 1:02 PM EDT Sugars are still out of control. Slightly better but still way too high. Again. Recommend endo. Referral already placed. She appears to have a new mild anemia. Recheck anemia labs including ibobt [facility] Telephone encounter Note * Telephone Encounter - Henok Martinez MD - 05/04/2024 1:02 PM EDT Sugars are still out of control. Slightly better but still way too high. Again. Recommend endo. Referral already placed. She appears to have a new mild anemia. Recheck anemia labs including ibobt [facility]07-05-2024 History of Present illness Narrative* Juan Ernandez RT(R) - 05/01/2024 4:50 PM EDT Radiology Service Progress Note PATIENT NAME: Telma Tineo DATE OF SERVICE: May 01, 2024 TIME: 4:35 PM PATIENT IDENTITY VERIFICATION COMPLETED USING TWO (2) IDENTIFIERS: Name and Date of confirmedby patient verbally. FALL SCREENING: Has the patient had 2 falls in the last year or 1 fall with injury or currently using an Ambulatory Assistive Device (Walker, Cane, Wheelchair, Crutches, etc.)? No PATIENT GENDER DATA: Female. status: : No status: NO. PATIENT RELEVANT IMPLANT DATA REVIEWED: Yes PATIENT PRESENTS WITH AN IMPLANTABLE OR ATTACHED HAT AND CAP DRYING ROOM ATTENDANT: No RADIOLOGY DEPARTMENT: General X-ray: Exam(s) Completed: Chest X-Ray PERIPHERAL IV DATA: Not applicable SIGNED BY: RT Gavin(R) May 01, 2024 4:35 PM documented in this encounterTr[facility] History of Present illness Narrative* Henok Martinez MD - 05/01/2024 3:49 PM EDT Patient presents with: Follow Up HPI: Patient presents today for office visit for follow up. Seen last time and did labs and xray. Recommended repeat xray in March and endo referral due to sugars. Bp is good. Saw Dr Sarabia recently. Her cough is much better. Latest Ref Rng 03/04/2024 WBC 3.70 - 11.00 k/uL 16.91 (H) RBC 3.90 - 5.20 m/uL 4.55 Hemoglobin 11.5 - 15.5 g/dL 13.5 Hematocrit 36.0 - 46.0 % 41.3 MCV 80.0 - 100.0 fL 90.8 MCH 26.0 - 34.0 pg 29.7 MCHC 30.5 - 36.0 g/dL 32.7 RDW-CV 11.5 - 15.0 % 13.4 Platelet Count 150 - 400 k/uL 366 MPV 9.0 - 12.7 fL 12.5 Neut% % 77.6 Abs Neut (ANC) 1.45 - 7.50 k/uL 13.13 (H) Lymph% % 12.2 Abs Lymph 1.00 - 4.00 k/uL 2.06 [place]% % 7.3 Abs [place] <0.87 k/uL 1.23 (H) Eosin% % 0.9 Abs Eosin <0.46 k/uL 0.15 Baso% % 0.3 Abs Baso <0.11 k/uL 0.05 Immature Gran % % 1.7 IMMATURE GRANS (ABS) <0.10 k/uL 0.29 (H) NRBC /100 WBC 0.0 Absolute nRBC <0.01 k/uL <0.01 DTYPE Auto Protein, Total 6.3 - 8.0 g/dL 7.1 Albumin 3.9 - 4.9 g/dL 3.8 (L) Calcium 8.5 - 10.2 mg/dL 9.5 Bilirubin, Total 0.2 - 1.3 mg/dL 0.5 Alkaline Phosphatase 34 - 123 U/L 104 AST 13 - 35 U/L 24 ALT 7 - 38 U/L 26 Glucose 74 - 99 mg/dL 357 (H) BUN 7 - 21 mg/dL 14 Creatinine 0.58 - 0.96 mg/dL 0.85 Sodium 136 - 144 mmol/L 128 (L) Potassium 3.7 - 5.1 mmol/L 5.4 (H) Chloride 97 - 105 mmol/L 93 (L) CO2 22 - 30 mmol/L 22 Anion Gap 9 - 18 mmol/L 13 eGFR >=60 mL/min/1.73m 68 Hemoglobin A1C 4.3 - 5.6 % 12.1 (H) Estimated Average Glucose mg/dL 301 TSH 0.270 - 4.200 mIU/L 1.860 Legend: (H) High (L) Low MEDICATIONS: Current Outpatient Medications Medication Sig ELIQUIS 5 mg tab(s) Take 5 mg by mouth two times a day. PEG 400-propylene glycol (SYSTANE ULTRA) 0.4-0.3 % ophthalmic solution Use 1 Drop in both eyes three times a day. Artificial Tear, Hypromellose, (SYSTANE GEL) 0.3 % gel Use 1 Drop in both eyes daily at bedtime. pantoprazole DR (PROTONIX) 40 mg tablet Take 1 tablet by mouth once daily. benzocaine-menthol (CEPACOL) 15-2.6 mg lozg lozenge Take 1 Lozenge by mouth every 4 hours as neededfor pain. fluticasone-vilanterol (BREO ELLIPTA) 100-25 mcg/dose inhaler Inhale 1 Inhalation as instructed once daily. Promethazine-DM (PHENERGAN-DM) 6.25-15 mg/5 mL syrup Take 5 mL by mouth four times a day as needed. metoprolol tartrate, short acting, (LOPRESSOR) 50 mg tablet Take 1.5 tablets by mouth two times a day. losartan (COZAAR) 100 mg tablet Take 1 tablet by mouth once daily. amLODIPine (NORVASC) 10 mg tablet Take 10 mg by mouth once daily. metFORMIN (GLUCOPHAGE) 500 mg tablet Take 2 tablets by mouth two times a day with meals. atorvastatin (LIPITOR) 20 mg tablet Take 1 tablet by mouth once daily. Blood Pressure Test Kit-Large (Mapidy ARM BP MONITOR) 1 Each once daily. Methylsulfonylmethane (MSM) 1,000 mg cap Take 1 capsule by mouth once daily. No current facility-administered medications for this visit. ALLERGIES: ALLERGIES Allergen Reactions Penicillins Anaphylaxis Tetracycline Rash PAST MEDICAL HISTORY Diagnosis Date Allergies Lundberg's palsy Bronchiectasis (HCC) Gastroesophageal reflux disease without esophagitis History of CVA (cerebrovascular accident) Mild intermittent asthma without complication Primary hypertension Type 2 diabetes mellitus without complication, without long-term current use of insulin (HCC) PAST SURGICAL HISTORY Procedure Laterality Date APPENDECTOMY CATARACT EXTRACTION HX COLONOSCOPY SCREENING 10/04/2022 no specimens collected, No further screening colonoscopies required HEMORRHOIDECTOMY HYSTERECTOMY HX without bso PAST SURGICAL HISTORY OF ? repair of cystocele RHINOPLASTY N/A TONSILLECTOMY & ADENOIDECTOMY <AGE 12 FAMILY HISTORY Problem Relation Age of Onset Lung Cancer Father Pancreatic Cancer Mother Heart disease Son No Ocular Disease No Family History Social History Tobacco Use Smoking status: Former Smokeless tobacco: Never Tobacco comments: Light smoker for 7 years in early adulthood Vaping Use Vaping Use: Never used Substance Use Topics Alcohol use: Not Currently Drug use: Never Reviewed current medications, allergies, past medical history, surgical history, family history andsocial history today. REVIEW OF SYSTEMS All other reviewed and negative other than HPI. HEALTH MAINTENANCE: Reviewed health maintenance issues today and recommended the following in detail. Behavioral Health Screening -Behavioral Health Screening PHQ-2 Score: 0 (Lower risk for depression) ELICEO-2 Score: 0 (Lower risk for anxiety) Recommendation: no further intervention at this time Diabetic Foot Exam due on 05/20/2024 VITALS: BP 122/70 Pulse 64 Wt 75.3 kg (166 lb) SpO2 99% BMI 33.53 kg/m Last 4 Encounter Wt Readings: Date: Wt: 05/01/2024 75.3 kg (166 lb) 03/04/2024 69.9 kg (154 lb) 02/19/2024 74.4 kg (164 lb 0.4 oz) 02/07/2024 73.4 kg (161 lb 13.1 oz) PHYSICAL EXAMINATION: General appearance: Well appearing, alert, in no acute distress, well-hydrated, well nourished. Skin: Skin color, texture, turgor normal, no suspicious rashes or lesions Head: Normocephalic, no masses, lesions, tenderness or abnormalities Lungs: Lungs clear to auscultation. No wheezing, rhonchi, rales Heart: RRR without murmur, gallop, or rubs. No ectopy Abdomen: Normal abdominal exam, Abdomen soft, non-tender. Bowel sounds normal. No masses, organomegaly Extremities: No deformities, edema, skin discoloration, clubbing or cyanosis. Good capillary refill. Musculoskeletal: No joint swelling, deformity, or tenderness Feet:Shoes and socks removed, No deformities, ulcers, calluses, normal distal pulses, and sensitiveto 10 gm monofilament ASSESSMENT/PLAN: 1. Primary hypertension - ICD9: 401.9, ICD10: I10 (primary diagnosis) - Controlled - Continue current medications 2. Type 2 diabetes mellitus without complication, without long-term current use of insulin (HCC) - ICD9: 250.00, ICD10: E11.9 - poor control. Refused endo. Check labs. - HEMOGLOBIN A1C 3. Mild intermittent asthma without complication - ICD9: 493.90, ICD10: J45.20 - stable. Check xray. Henok Martinez MD documented in this encounterTr[facility] History of Present illness Narrative* Emma Mcnally, OD - 04/28/2024 1:38 PM EDT 1. Dry eye syndrome of bilateral lacrimal glands Continue artificial tears 3x daily and gel nightly Sent rx to pharmacy 2. PCO (posterior capsular opacification), left Stable- mild visual significance -monitor 3. Type 2 diabetes mellitus without complication, without long-term current use of insulin (HCC) Risk of diabetic changes and vision loss can be minimized by tight control of blood sugar, blood pressure, and cholesterol levels. 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 Encouraged patient to call the office immediately with any changes to vision or visual concerns. Advised to not wait until the next scheduled exam. 4. Pseudophakia of both eyes 5. Presbyopia Continue with OTC readers (Patient not interested in rx) Follow-up in 1 year for LAMAR Mcnally, OD April 28, 2024 1:38 PM documented in this encounterTr[facility]05-[facility] Telephone encounter Note * Telephone Encounter - Virginia Reina APRN.CNS - 03/20/2024 12:32 PM EDT The following approved medication requests have been transmitted electronically. Requested Prescriptions Pending Prescriptions Disp Refills pantoprazole DR (PROTONIX) 40 mg tablet 90 tablet 3 Sig: Take 1 tablet by mouth once daily. Virginia Reina APRN.CNS [facility]05-24-2024 Miscellaneous Notes* Telephone Encounter - Virginia Reina APRN.CNS - 03/20/2024 12:32 PM EDT The following approved medication requests have been transmitted electronically. Requested Prescriptions Pending Prescriptions Disp Refills pantoprazole DR (PROTONIX) 40 mg tablet 90 tablet 3 Sig: Take 1 tablet by mouth once daily. Virginia Reina APRN.DIRECTOR NETWORK DEVELOPMENT * Telephone Encounter - Elaina Retana - 03/20/2024 11:11 AM EDT Patient has been identified by name and date of : Patient phones for refill(s): Requested Prescriptions Pending Prescriptions Disp Refills pantoprazole DR (PROTONIX) 40 mg tablet 90 tablet 3 Sig: Take 1 tablet by mouth once daily. Date of last office visit in primary care: 03/04/2024 Date of next office visit in primary care: 05/01/2024 Please advise. Thank you. Elaina Retana. documented in this encounterTr[facility]05-[facility]-2024 Telephone encounter Note * Telephone Encounter - Elaina Retana - 03/20/2024 11:11 AM EDT Patient has been identified by name and date of : Patient phones for refill(s): Requested Prescriptions Pending Prescriptions Disp Refills pantoprazole DR (PROTONIX) 40 mg tablet 90 tablet 3 Sig: Take 1 tablet by mouth once daily. Date of last office visit in primary care: 03/04/2024 Date of next office visit in primary care: 05/01/2024 Please advise. Thank you. Elaina Retana. [facility]05-16-2024 Telephone encounter Note* Telephone Encounter - Donna Mcnally - 03/12/2024 9:11 AM EDT 3rd call attempt, left vm, closing encounter [facility]05-16-2024 Miscellaneous Notes* Telephone Encounter - Donna Mcnally - 03/12/2024 9:11 AM EDT 3rd call attempt, left vm, closing encounter * Telephone Encounter - Wendi Mccoy PSS - 03/09/2024 8:26 AM EDT 2nd attempt: LVM for patient to schedule endocrinology appointment. * Telephone Encounter - Amisha Barbosa - 03/06/2024 9:38 AM EDT 1st attempt LVM to schedule with endocrinology * Telephone Encounter - Cris Garza MA - 03/05/2024 1:48 PM EDT Patient's son was made aware of the results. Patient verbalizes understanding. He is unsure if she misses any medication doses. He will check. Please help patient set up endo consult in [place]. Cris Garza Ma * Telephone Encounter - Henok Martinez MD - 03/05/2024 11:49 AM EDT We are waiting on the official read of her chest xray. Her white count is up. Likely from her steroids. Her sugars are even higher. Her recent steroids dont help her sugars, however, they are likely not the cause since this is a three month lab. Her sodium is low and potassium is slightly high. Recheck labs in one week. Alum Mixer she missed any of her dm meds? I would recommend she see our endo nurse here in [place] to help with her sugars. documented in this encounterTr[facility]05-[facility]-2024 Telephone encounter Note * Telephone Encounter - Wendi Mccoy PSS - 03/09/2024 8:26 AM EDT 2nd attempt: LVM for patient to schedule endocrinology appointment. [facility]05-10-2024 Telephone encounter Note* Telephone Encounter - Taco Shields RN - 03/06/2024 10:31 AM EDT Sujata Elizondo, phoned asking for results of xray and given providers message below with verbalized understanding. Daughter agreeable. [facility]05-10-2024 Miscellaneous Notes* Telephone Encounter - Taco Shields RN - 03/06/2024 10:31 AM EDT Sujata Elizondo, phoned asking for results of xray and given providers message below with verbalized understanding. Daughter agreeable. * Telephone Encounter - Henok Martinez MD - 03/06/2024 8:22 AM EDT Xray shows ?? Nodules that could be from infection. Recheck xray in one month to make sure goes away. documented in this encounterTr[facility]05-[facility]-2024 Telephone encounter Note * Telephone Encounter - Amisha Barbosa - 03/06/2024 9:38 AM EDT 1st attempt LVM to schedule with endocrinology [facility]05-10-2024 Telephone encounter Note* Telephone Encounter - Henok Martinez MD - 03/06/2024 8:22 AM EDT Xray shows ?? Nodules that could be from infection. Recheck xray in one month to make sure goes away. [facility]05-09-2024 Telephone encounter Note* Telephone Encounter - Cris Garza MA - 03/05/2024 1:48 PM EDT Patient's son was made aware of the results. Patient verbalizes understanding. He is unsure if she misses any medication doses. He will check. Please help patient set up endo consult in [place]. Cris Garza Ma [facility]05-09-2024 Telephone encounter Note* Telephone Encounter - Henok Martinez MD - 03/05/2024 11:49 AM EDT We are waiting on the official read of her chest xray. Her white count is up. Likely from her steroids. Her sugars are even higher. Her recent steroids dont help her sugars, however, they are likely not the cause since this is a three month lab. Her sodium is low and potassium is slightly high. Recheck labs in one week. Alum Mixer she missed any of her dm meds? I would recommend she see our endo nurse here in [place] to help with her sugars. [facility]05-09-[facility]24 Telephone encounter Note* Telephone Encounter - Bharati Jackson LPN - 03/05/2024 9:59 AM EDT Daughter called and results below given. Her labs are not all back yet. They white count is up but that is likely from her recent steroids. Dr Mueller Written by Henok Martinez MD on 03/05/2024 9:56 AM E [facility]05-09-2024 Miscellaneous Notes* Telephone Encounter - Bharati Jackson LPN - 03/05/2024 9:59 AM EDT Daughter called and results below given. Her labs are not all back yet. They white count is up but that is likely from her recent steroids. Dr Mueller Written by Henok Martinez MD on 03/05/2024 9:56 AM E documented in this encounterTrinity [facility]05-08-2024 History of Present illness Narrative* Juan Ernandez RT(R) - 03/04/2024 3:50 PM EDT Radiology Service Progress Note PATIENT NAME: Telma Tineo DATE OF SERVICE: March 04, 2024 TIME: 3:37 PM PATIENT IDENTITY VERIFICATION COMPLETED USING TWO (2) IDENTIFIERS: Name and Date of confirmedby patient verbally. FALL SCREENING: Has the patient had 2 falls in the last year or 1 fall with injury or currently using an Ambulatory Assistive Device (Walker, Cane, Wheelchair, Crutches, etc.)? No PATIENT GENDER DATA: Female. status: : No status: NO. PATIENT RELEVANT IMPLANT DATA REVIEWED: Yes PATIENT PRESENTS WITH AN IMPLANTABLE OR ATTACHED HAT AND CAP DRYING ROOM ATTENDANT: No RADIOLOGY DEPARTMENT: General X-ray: Exam(s) Completed: Chest X-Ray PERIPHERAL IV DATA: Not applicable SIGNED BY: RT Gavin(R) March 04, 2024 3:37 PM documented in this encounterTrinity [facility]05-[facility]24 History of Present illness Narrative* Henok Martinez MD - 03/04/2024 2:11 PM EDT Patient presents with: ER F/U HPI: Patient presents today for office visit for HOSPITAL/ER FOLLOW UP: Reason for visit: Cough, shortness of breath, weakness Which facility: [facility] Date of visit: 02/25/24 Diagnosis: Asthma, dehydration, and weakness (uncertain cause) Testing done: labs, chest x-ray Treatment given: Albuterol neb treatment., Home with Zofran, Cepacol and Prednisone. Current symptoms: cough, shortness of breath, chest congestion, B/L ear pain, headache and sore throat. Has been ill since the beginning of January. Developed a headache and then a fever and chills as wellas rhinorrhea and cough. Initially was not evaluated by anyone for her symptoms. Symptoms have beenongoing. Now with sore throat as well as nausea. Not eating and drinking well. Refers to I have tofight to be able to eat. [facility] seen in [facility] in [place] on 02/07/24 and then again on 02/19/24. No treatment given. Strep, COVID, Flu and RSV all NEGATIVE. Reviewed er reports. Cbc, bmp done. They treated her with iv fluids and chest xray was negative. Has lost 10 lbs. Not feeling like eating. Has anorexia. Drinking well. Still having chest congestion. Is wheezy. No more diarrhea. No vomiting or abd pain. No urinary issues. No hemoptysis. Brining up green mucous. Has been on zpak. Prednisone did help. Throat is better. Does not like using albuterol. Says it does not help it. Not using her breo right now but has it at home. Does not check sugars at all. Her last A1c was high. I am hesitant to add more steroid unless her A1c is better. MEDICATIONS: Current Outpatient Medications Medication Sig benzocaine-menthol (CEPACOL) 15-2.6 mg lozg lozenge Take 1 Lozenge by mouth every 4 hours as neededfor pain. ondansetron orally disintegrating (ZOFRAN ODT) 4 mg disintegrating tablet Take 4 mg by mouth every 8 hours as needed for nausea/vomiting. metoprolol tartrate, short acting, (LOPRESSOR) 50 mg tablet Take 1.5 tablets by mouth two times a day. losartan (COZAAR) 100 mg tablet Take 1 tablet by mouth once daily. amLODIPine (NORVASC) 10 mg tablet Take 10 mg by mouth once daily. fluticasone-vilanterol (BREO ELLIPTA) 100-25 mcg/dose inhaler Inhale 1 Inhalation as instructed once daily. metFORMIN (GLUCOPHAGE) 500 mg tablet Take 2 tablets by mouth two times a day with meals. apixaban (ELIQUIS) 2.5 mg tab(s) Take 1 tablet by mouth two times a day. atorvastatin (LIPITOR) 20 mg tablet Take 1 tablet by mouth once daily. Blood Pressure Test Kit-Large (Mapidy ARM BP MONITOR) [address] daily. pantoprazole DR (PROTONIX) 40 mg tablet Take 1 tablet by mouth once daily. Methylsulfonylmethane (MSM) 1,000 mg cap Take 1 capsule by mouth once daily. No current facility-administered medications for this visit. ALLERGIES: ALLERGIES Allergen Reactions Penicillins Anaphylaxis Tetracycline Rash PAST MEDICAL HISTORY Diagnosis Date Allergies Lundberg's palsy Bronchiectasis (HCC) Gastroesophageal reflux disease without esophagitis History of CVA (cerebrovascular accident) Mild intermittent asthma without complication Primary hypertension Type 2 diabetes mellitus without complication, without long-term current use of insulin (HCC) PAST SURGICAL HISTORY Procedure Laterality Date APPENDECTOMY CATARACT EXTRACTION HX COLONOSCOPY SCREENING 10/04/2022 no specimens collected, No further screening colonoscopies required HEMORRHOIDECTOMY HYSTERECTOMY HX without bso PAST SURGICAL HISTORY OF ? repair of cystocele RHINOPLASTY N/A TONSILLECTOMY & ADENOIDECTOMY <AGE 12 FAMILY HISTORY Problem Relation Age of Onset Lung Cancer Father Pancreatic Cancer Mother Heart disease Son No Ocular Disease No Family History Social History Tobacco Use Smoking status: Former Smokeless tobacco: Never Tobacco comments: Light smoker for 7 years in early adulthood Vaping Use Vaping Use: Never used Substance Use Topics Alcohol use: Not Currently Drug use: Never Reviewed current medications, allergies, past medical history, surgical history, family history andsocial history today. REVIEW OF SYSTEMS All other reviewed and negative other than HPI. VITALS: BP 110/60 Pulse 91 Temp 37.2 C (98.9 F) Ht 149.9 cm (4' 11) Wt 69.9 kg (154 lb) SpO2 97% BMI 31.10 kg/m Last 4 Encounter Wt Readings: Date: Wt: 02/19/2024 74.4 kg (164 lb 0.4 oz) 02/07/2024 73.4 kg (161 lb 13.1 oz) 12/16/2023 74.8 kg (165 lb) 11/26/2023 72.6 kg (160 lb) PHYSICAL EXAMINATION: General appearance: Well appearing, alert, in no acute distress, well-hydrated, well nourished. Skin: Skin color, texture, turgor normal, no suspicious rashes or lesions Head: Normocephalic, no masses, lesions, tenderness or abnormalities Eyes: Anicteric sclera. Pupils are equally round and reactive to light. Extraocular movements are intact. Ears: External ears normal, canals clear Nose/Sinuses: Nares normal, septum midline, mucosa normal, no drainage or sinus tenderness Oropharynx: Lips, mucosa, and tongue normal, teeth and gums normal, oropharynx normal Neck: Supple, no adenopathy; Lungs: has some rales on right side. Decreased breath sounds in bases. Heart: RRR without murmur, gallop, or rubs. No ectopy Abdomen: Normal abdominal exam, Abdomen soft, non-tender. Bowel sounds normal. No masses, organomegaly Extremities: No deformities, edema, skin discoloration, clubbing or cyanosis. Good capillary refill. ASSESSMENT/PLAN: 1. Type 2 diabetes mellitus without complication, without long-term current use of insulin (HCC) - ICD9: 250.00, ICD10: E11.9 (primary diagnosis) - check labs. - HEMOGLOBIN A1C 2. Mild intermittent asthma without complication - ICD9: 493.90, ICD10: J45.20 - FLUTICASONE FUROATE 100 MCG-VILANTEROL 25 MCG/DOSE INHALATION POWDER 3. Bronchiectasis without complication (HCC) - ICD9: 494.0, ICD10: J47.9 - FLUTICASONE FUROATE 100 MCG-VILANTEROL 25 MCG/DOSE INHALATION POWDER - PROMETHAZINE-DM 6.25 MG-15 MG/5 ML ORAL SYRUP - LEVOFLOXACIN 500 MG TABLET 4. Bronchitis - ICD9: 490, ICD10: J40 - add levaquin. Discussed risks and benefits of new medication with the patient. Advised them to call if any side effects or questions. Red flags for re-assessment reviewed with patient in detail. Call if symptoms worsen at all or if not better in one to two weeks Reviewed diagnosis and treatment options in detail. Questions were answered. Patient expressed understanding of treatment plan. - XR CHEST 2V FRONTAL/LAT - COMPLETE BLOOD COUNT AND DIFFERENTIAL - COMPREHENSIVE METABOLIC PANEL 5. Weight loss - ICD9: 783.21, ICD10: R63.4 - THYROID STIMULATING HORMONE Henok Martinez MD [facility] Telephone encounter Note * Telephone Encounter - Sun Knowles OCCA - 03/02/2024 11:47 AM EDT TC to Sujata who verbalized understanding of below. Sujata wanting to keep appointment scheduled with Dr. Martinez on Saturday. CHAY Tolbert [facility]05-06-2024 Miscellaneous Notes* Telephone Encounter - Sun Knowles OCCA - 03/02/2024 11:47 AM EDT TC to Sujata who verbalized understanding of below. Sujata wanting to keep appointment scheduled with Dr. Martinez on Saturday. CHAY Tolbert * Telephone Encounter - Henok Martinez MD - 03/02/2024 11:42 AM EDT Would recommend being seen. If bad, see one of the other providers before Sat * Telephone Encounter - Daina Ríos RN - 03/02/2024 11:23 AM EDT Pts daughter called in and reports Pts cough isn't getting any better. She states she still has thethick yellow phlegm and you can hear the congestion when she coughs, and her voice is hoarse from the coughing. She is asking if there is any cough medicine that the provider would recommend for the Pt. She states the Pt was put on Azithromycin on 02/21/24 by provider, but that didn't help. She states she took the Pt to [facility] and they gave her Prednisone (which she took the last pill yesterday), Albuterol, and IV fluids. Pt reports the Prednisone helped, but the Albuterol doesn't seem to help at all. Pt denies fever, but doesn't have anything to take it with. Tried to get the Pt an earlier appoin tment, but she wants to see Dr Martinez and the earliest they could get her in was Saturday03/04/24. Please call and advise. [facility] Telephone encounter Note * Telephone Encounter - Henok Martinez MD - 03/02/2024 11:42 AM EDT Would recommend being seen. If bad, see one of the other providers before Sat [facility]05-06-[facility] Telephone encounter Note* Telephone Encounter - Daina Ríos RN - 03/02/2024 11:23 AM EDT Pts daughter called in and reports Pts cough isn't getting any better. She states she still has thethick yellow phlegm and you can hear the congestion when she coughs, and her voice is hoarse from the coughing. She is asking if there is any cough medicine that the provider would recommend for the Pt. She states the Pt was put on Azithromycin on 02/21/24 by provider, but that didn't help. She states she took the Pt to [facility] and they gave her Prednisone (which she took the last pill yesterday), Albuterol, and IV fluids. Pt reports the Prednisone helped, but the Albuterol doesn't seem to help at all. Pt denies fever, but doesn't have anything to take it with. Tried to get the Pt an earlier appoin tment, but she wants to see Dr Martinez and the earliest they could get her in was Saturday03/04/24. Please call and advise. [facility]04-30-[facility] Discharge summary Author Gabe Foster [facility] February 25, 2024 6:12pm Note Date/Time February 25, 2024 4:5 1pm [facility] Medical Records Department [address] [place] [address] Emergency Department Summary 02/25/24 MR#: [id number] Acct: [id number] Name: TELMA TINEO Rep #:[id number] 83 From: Gabe Foster DO PCP: Dr. Henok Martinez MD Status:REG E R Location: ED [facility] History of Present Illness Chief Complaint: Weakness Narrative Narrative: 83-year-old female presenting with multiple complaints. She states that about amonth ago she developed a headache and then fevers and chills as well as rhinorrhea and cough. She initially did not see anybody for this. She never checked checked her temperature but she states she believes she had a fever. The symptoms have been ongoing and she has a sore throat as well as nausea is able to drink fluids but not eating very well. She went to urgent care initially about a week ago and would due to ongoing symptoms was treated with a Z-Morgan. She states she was tested for COVID and influenza as well as RSV but this was 2 weeks after her symptoms. No chest x-ray was checked but they presumed it to be pneumonia as we gave her a Z-Morgan. Patient has a little bit ofdiarrhea and denies abdominal pain but is nauseous and still coughing. She has a history of asthma she states since . [facility] Medical History Asthma Complaint of melena Diabetes mellitus, type 2 Essential hypertension Former smoker GERD (gastroesophageal reflux disease) History of Lundberg's palsy History of blood transfusion History of cancer History of TIA (transient ischemic attack) Neck pain, bilateral Right atrial mass Stroke/cerebrovascular accident Transient ischemic attack (03/2021) Home Medications multivitamin 1 tab PO DAILY 06/19/21 [History Last Taken Unknown] pantoprazole 40 mg tablet,delayed release 40 mg PO DAILY gerd #90 tabs 08/28/21 [Rx Last Taken Unknown] metformin 500 mg tablet 500 mg PO BID 02/15/22 [History Last Taken Unknown] apixaban 2.5 mg tablet (Eliquis) 2.5 mg PO BID #180 tabs 02/21/22 [Rx Last Taken Unknown] atorvastatin 20 mg tablet 20 mg PO QHS 03/07/23 [History Last Taken Unknown] fluticasone furoate 100 mcg-vilanterol 25 mcg/dose inhalation powder (Breo Ellipta) 1 inh inhalation DAILY 03/07/23 [History Last Taken Unknown] losartan 100 mg tablet 100 mg PO DAILY 03/07/23 [History Last Taken Unknown] amlodipine 10 mg tablet 10 mg PO DAILY #90 tabs 11/21/23 [Rx Last Taken Unknown] metoprolol tartrate 50 mg tablet 50 mg PO BID 11/21/23 [History Last Taken Unknown] benzocaine 15 mg-menthol 2.6 mg lozenges (Cepacol Sore Throat (benzocaine- menthol)) 1 cee mucous membrane Q2H PRN sore throat #16 ea 02/25/24 [Rx Last Taken Unknown] ondansetron 4 mg disintegrating tablet 4 mg PO Q8H PRN PRN Nausea #30 tabs 02/25/24 [Rx Last Taken Unknown] prednisone 50 mg tablet 50 mg PO DAILY #5 tabs 02/25/24 [Rx Last Taken Unknown] Allergy/AdvReac Type Severity Reaction Status Date / Time Penicillins Allergy Severe Anaphylaxis Verified 02/25/24 14:39 tetracycline Allergy Severe anaphylaxis Verified 02/25/24 14:39 Family History Mother Pancreatic cancer CAD (coronary artery disease) Father Cancer Lung cancer Brother Parkinson disease Surgical History H/O hemorrhoidectomy H/O rhinoplasty H/O: hysterectomy History of appendectomy History of bladder surgery History of cataract surgery History of surgery Social History Smoking Status: Former smoker how long ago did patient quit smokin+ years alcohol intake: never substance use type: does not use ROS ROS ED Constitutional Constitutional ED: Denies chills, fever(s) or sweats Eyes Eyes: Denies blurry vision or change in vision ENT ENT ED: Reports rhinorrhea and sore throat; Denies ear pain Cardiovascular Cardiovascular: Denies chest pain, palpitations or racing heartbeat Respiratory/Chest Respiratory/Chest: Reports cough; Denies dyspnea or sputum Gastrointestinal Gastrointestinal: Reports nausea; Denies abdominal pain, constipation, diarrhea or vomiting Genitourinary Genitourinary ED: Denies dysuria, hematuria or urinary frequency Musculoskeletal Musculoskeletal: Reports myalgias; Denies arthralgias or neck pain Integumentary Denies abscess, Abrasions or rash Neurologic Neurologic: Reports headache(s); Denies paresthesias or weakness Psychiatric Psychiatric: Denies anxiety, depression, suicidal ideation or suicidal thoughts Endocrine Endocrinology: Denies polydipsia or polyuria EXAM Physical Exam Const Vital Signs: 02/25/24 14:36 02/25/24 15:15 02/25/24 16:00 Temperature 99.6 F H Temperature Source Temporal Pulse Rate 101 H 113 H Respiratory Rate 20 H 22 H Respiratory Effort Normal Non-Labored Respiratory Pattern Normal Tachypnea Blood Pressure 158/77 H Blood Pressure Mean 104 Pulse Ox 97 Oxygen Delivery Method Room Air Positive well nourished General Appearance ED: NAD; Negative for pallor HEENT Reports dry mucous membranes HEENT Narrative: No exudates. No tonsillar swelling. No stridor. Mouth ED: Yes dry mucous membranes Mouth: dry mucous membranes Eyes PERRL and EOMs intact bilaterally Chest Wall inspection of chest normal Resp normal respiratory effort Auscultation: wheezes scattered wheezes Cardio regular rate and regular rhythm GI normal to inspection, nondistended, normoactive bowel sounds Neuro CN's II-XII intact bilaterally Skin no rashes or lesions noted General Skin Exam: Negative for jaundice or pallor MDM MDM MDM Narrative Medical decision making narrative: Patient presenting with multiple symptoms. She has had cough and congestion forweeks and she is not eating very well. Differential includes pneumonia, dehydration, electrolyte abnormalities, UTI, anemia. CBC obtained to assess white blood cell count, hemoglobin, platelets. BMP to assess renal function electrolytes, glucose. Urinalysis to assess for UTI. Chest x-ray to rule out pneumonia. Patient medicated with Zofran and given IV fluids. She was given a Cepacol lozenge for her sore throat. She was given breathing treatments that she has some small scattered wheezes and she is given some Solu-Medrol 125 mg. CBC shows normal white blood cell count of 8.1. Hemoglobin 12.5. Platelets normal 224. Creatinine elevated today at 1.16. GFR is 47. Again patient was given a liter of normal saline. Urinalysis negative for infection. Chest x-raymy interpretation shows no acute process. Radiologist interprets this and agrees. Reevaluation at 4:51 PM. Patient feeling much better her nausea is better she is breathing better she reports I feel so much better. Reviewed her lab work with her and recommended she drink more fluids and she has to eat at home. She is given Zofran for home to help with nausea. She is given Cepacol lozenges for her sore throat. She is given a prednisone burst and albuterol for home. Impression: 1. Dehydration 2. Nausea 3. Asthma exacerbation 4. Weakness Lab Data Attestation: I reviewed the patient's lab results. Labs: Laboratory Results - last 24 hr 02/25/24 16:00 WBC 8.1 RBC 4.29 Hgb 12.5 Hct 37.7 MCV 87.9 MCH 29.1 MCHC 33.2 RDW Std Deviation 41.6 RDW Coeff of [place] 12.9 Plt Count 224 MPV 12.7 H Immature Gran % (Auto) 1.000 H Neut % (Auto) 76.3 H Lymph % (Auto) 9.0 L [place] % (Auto) 13.1 H Eos % (Auto) 0.2 Baso % (Auto) 0.4 Absolute Neuts (auto) 6.2 Absolute Lymphs (auto) 0.73 L Nucleated RBC % 0 Sodium 129 L Potassium 3.8 Chloride 97 L Carbon Dioxide 24.0 Anion Gap 8 BUN 7 Creatinine 1.16 H Estim Creat Clear Calc 32.73 Est GFR (MDRD) Af Amer 57 L Est GFR (MDRD) Non-Af 47 L BUN/Creatinine Ratio 6.0 L Glucose 270 H Calcium 9.1 Urine Color Yellow Urine Clarity Clear Urine pH 7.0 Ur Specific [place] 1.005 Urine Protein 30 H Urine Glucose (UA) 1000 H Urine Ketones Negative Urine Occult Blood 25 H Urine Nitrite Negative Urine Bilirubin Negative Urine Urobilinogen Normal Ur Leukocyte Esterase Negative Urine RBC 0 SEEN Urine WBC 0 SEEN Ur Squamous Epith Cells 0 SEEN Urine Bacteria 0 SEEN Urine Mucus 0 SEEN Radiography Diagnostic Testing: Clinical Impression(s) from Imaging Studies Chest X-Ray 02/25/24 16:25 IMPRESSION: No acute cardiopulmonary pathology Electronically Signed: Fazal Stout MD at 16:59 EDT , Discharge Plan Triage Chief Complaint: Weakness ED Provider: Gabe Foster Dx/Rx/DC Orders Instructions: ED Asthma, Acute (Adult), ED Dehydration (Adult), ED Weakness (Uncertain Cause) Prescriptions: New ondansetron 4 mg tablet,disintegrating 4 mg PO Q8H PRN PRN (Reason: Nausea) Qty: 30 0RF Cepacol Sore Throat (janneth-men) 15-2.6 mg lozenge 1 cee mucous membrane Q2H PRN (Reason: sore throat) Qty: 16 0RF prednisone 50 mg tablet 50 mg PO DAILY Qty: 5 0RF No Action pantoprazole 40 mg tablet,delayed release (DR/EC) 40 mg PO DAILY Qty: 90 3RF multivitamin Tablet 1 tab PO DAILY metformin 500 mg tablet 500 mg PO BID metoprolol tartrate 50 mg tablet 50 mg PO BID losartan 100 mg tablet 100 mg PO DAILY atorvastatin 20 mg tablet 20 mg PO QHS Patient Comments: TAKE 1 TABLET BY MOUTH ONCE DAILY fluticasone furoate-vilanterol [Breo Ellipta] 100-25 mcg/dose blister with device 1 inh inhalation DAILY Patient Comments: INHALE 1 PUFF BY MOUTH ONCE DAILY DIRECTED amlodipine 10 mg tablet 10 mg PO DAILY Qty: 90 3RF Eliquis 2.5 mg tablet 2.5 mg PO BID Qty: 180 2RF Primary Care Provider: Henok Martinez Referrals: Henok Martinez MD [Primary Care Provider] - Disposition Disposition: Home, Self Care What to do if you have Problems For any increased pain, shortness of breath, bleeding, nausea or vomiting, chestpain, or any unexpected problems, contact your Primary Care Provider. Call [facility] ([phone]) or report to the closest Emergency Room. Call 911 if necessary. 02/25/241811 <Electronically signed by Gabe Foster DO> Cosigner Signature (if applicable): CC: Dr. Henok Martinez MD ~ Signed [facility] Work Phone: 1(368) 734-467304-26-2024 Telephone encounter Note* Telephone Encounter - Shabnam Ruiz LPN - 02/21/2024 4:40 PM EDT Daughter notified. [place] [address]-26-2024 Miscellaneous Notes* Telephone Encounter - Shabnam Ruiz LPN - 02/21/2024 4:40 PM EDT Daughter notified. * Telephone Encounter - Henok Martinez MD - 02/21/2024 4:24 PM EDT Urgent care note said one day. Will add meds * Telephone Encounter - Shabnam Ruiz LPN - 02/21/2024 4:18 PM EDT Patient daughter states that she has had symptoms for a week now. Using OTC Vicks, Tylenol, Emergen-C, Mucinex, Tucker, honey, drinking tea. Will need call daughter back. * Telephone Encounter - Henok Martinez MD - 02/21/2024 4:03 PM EDT It is too early to consider antibiotics. We usually do not use them unless the patient has been illa few weeks with no improvement as most of these infections are viral and antibiotics make other things worse. Would use something like delsym or mucinex. Call if symptoms worsen at all or if not better in one to two weeks If is truly worsening-more short of breath, not keeping anything down can always be seen again. * Telephone Encounter - Fernanda Macario RN - 02/21/2024 3:51 PM EDT Patient's daughter Sujata calling regarding patient. Patient was seen in EC yesterday for sore throat: nasal congestion, headache and cough. Was negative for strep, covid, flu and RSV. NO medicationswere prescribed. Daughter calling to update PCP that she feels patient needs a z-morgan or something. Reporst patientis worse today, in her opinion. Current sx's: -continued cough -continued SOB during exertion -been in bed for last 2 days -bad headache for 3 days -pain in left ear Per daughter, patient is not having any severe sx's; no chest pain, current SOB, no dizziness, is drinking fluids well. No wheezing. Reports does not think patient has any nausea, vomiting or diarrhea but she is not sure. Daughter states I'm sure she has a fever but has not checked it. Uses [facility]. Reminded daughter that patient needs to seek ER for any severe sx's as dicussed during call. Please advise daughter Sujata at [phone] Thank you. [facility] Telephone encounter Note * Telephone Encounter - Henok Martinez MD - 02/21/2024 4:24 PM EDT Urgent care note said one day. Will add meds [facility]04-26-[facility] Telephone encounter Note* Telephone Encounter - Shabnam Ruiz LPN - 02/21/2024 4:18 PM EDT Patient daughter states that she has had symptoms for a week now. Using OTC Vicks, Tylenol, Emergen-C, Mucinex, Tucker, honey, drinking tea. Will need call daughter back. [facility]04-26-[facility] Telephone encounter Note* Telephone Encounter - Henok Martinez MD - 02/21/2024 4:03 PM EDT It is too early to consider antibiotics. We usually do not use them unless the patient has been illa few weeks with no improvement as most of these infections are viral and antibiotics make other things worse. Would use something like delsym or mucinex. Call if symptoms worsen at all or if not better in one to two weeks If is truly worsening-more short of breath, not keeping anything down can always be seen again. [facility]04-26-[facility] Telephone encounter Note* Telephone Encounter - Fernanda Macario RN - 02/21/2024 3:51 PM EDT Patient's daughter Sujata calling regarding patient. Patient was seen in EC yesterday for sore throat: nasal congestion, headache and cough. Was negative for strep, covid, flu and RSV. NO medicationswere prescribed. Daughter calling to update PCP that she feels patient needs a z-morgan or something. Reporst patientis worse today, in her opinion. Current sx's: -continued cough -continued SOB during exertion -been in bed for last 2 days -bad headache for 3 days -pain in left ear Per daughter, patient is not having any severe sx's; no chest pain, current SOB, no dizziness, is drinking fluids well. No wheezing. Reports does not think patient has any nausea, vomiting or diarrhea but she is not sure. Daughter states I'm sure she has a fever but has not checked it. Uses [facility] [place]. Reminded daughter that patient needs to seek ER for any severe sx's as dicussed during call. Please advise daughter Sujata at [phone] Thank you. [facility] History of Present illness Narrative* Lana Alanis APRN.POLE INCISOR OPERATOR - 02/19/2024 1:03 PM EDT CC: Patient presents with: Sore Throat: nasal congestion, headache and cough x last night HPI: Telma Tineo is a 83 year old female who presents to the office with complaint of respiratory symptoms, head congestion, cough, nonproductive, and sore throat since last night. Symptoms are staying the same. Associated symptoms includes headache. Denies wheezing, dyspnea, nausea, vomiting , and diarrhea. Treatments tried include nothing so far. with no relief of symptoms. Sick contacts: unknown. History of asthma, frequent episodes of bronchitis, chronic bronchitis, bronchiectasis or COPD: No Smoker: No Seasonal/environmental allergies: No The ROS is otherwise negative. The patient's pmh, medications, allergies, and past visits are reviewed. PHYSICAL EXAM: BP 122/72 Pulse 74 Temp 37.4 C (99.4 F) Resp 16 Wt 74.4 kg (164 lb 0.4 oz) SpO2 99% BMI33.13 kg/m General appearance: alert, cooperative, pleasant, in no acute distress Head: Normocephalic Eyes: EOM's intact, conjunctiva pink and moist, no icterus, sclera white, non-injected Ears: Right ear: External ear/canal- Normal, TM - clear with good landmarks. Left ear: External ear/canal- Normal, TM - clear with good landmarks Oropharynx:moist without lesions, No erythema, exudates or tonsillar hypertrophy. Heart: Negative. RRR without obvious murmur, gallop, or rubs. No ectopy. Lungs: clear to auscultation, without rales or wheeze, good air exchange PAST MEDICAL HISTORY Diagnosis Date Allergies Lundberg's palsy Bronchiectasis (HCC) Gastroesophageal reflux disease without esophagitis History of CVA (cerebrovascular accident) Mild intermittent asthma without complication Primary hypertension Type 2 diabetes mellitus without complication, without long-term current use of insulin (HCC) PAST SURGICAL HISTORY Procedure Laterality Date APPENDECTOMY CATARACT EXTRACTION HX COLONOSCOPY SCREENING 10/04/2022 no specimens collected, No further screening colonoscopies required HEMORRHOIDECTOMY HYSTERECTOMY HX without bso PAST SURGICAL HISTORY OF ? repair of cystocele RHINOPLASTY N/A TONSILLECTOMY & ADENOIDECTOMY <AGE 12 ALLERGIES Penicillins and Tetracycline MEDICATIONS metoprolol tartrate, short acting, (LOPRESSOR) 50 mg tablet Take 1.5 tablets by mouth two times a day. losartan (COZAAR) 100 mg tablet Take 1 tablet by mouth once daily. amLODIPine (NORVASC) 10 mg tablet Take 10 mg by mouth once daily. fluticasone-vilanterol (BREO ELLIPTA) 100-25 mcg/dose inhaler Inhale 1 Inhalation as instructed once daily. metFORMIN (GLUCOPHAGE) 500 mg tablet Take 2 tablets by mouth two times a day with meals. apixaban (ELIQUIS) 2.5 mg tab(s) Take 1 tablet by mouth two times a day. atorvastatin (LIPITOR) 20 mg tablet Take 1 tablet by mouth once daily. Blood Pressure Test Kit-Large (Mapidy ARM BP MONITOR) [address] Each [address] daily. pantoprazole DR (PROTONIX) 40 mg tablet Take 1 tablet by mouth once daily. Methylsulfonylmethane (MSM) 1,000 mg cap Take 1 capsule by mouth once daily. FAMILY HISTORY Problem Relation Age of Onset Lung Cancer Father Pancreatic Cancer Mother Heart disease Son No Ocular Disease No Family History Social History Tobacco Use Smoking status: Former Smokeless tobacco: Never Tobacco comments: Light smoker for 7 years in early adulthood Vaping Use Vaping Use: Never used Substance Use Topics Alcohol use: Not Currently Drug use: Never ASSESSMENT/PLAN: 1. Sore throat - ICD9: 462, ICD10: J02.9 (primary diagnosis) Strep neg 2. URI, acute - ICD9: 465.9, ICD10: J06.9 - COVID & INFLUENZA A/B & RSV NAAT, ROUTINE Potential red flag symptoms discussed with the patient. Reviewed appropriate action plan to take ifred flag symptoms occur. Patient agreeable to treatment plan. Lana Alanis APRN.NÉSTOR documented [facility] History of Present illness Narrative* Fazal Law APRN.CNP - 02/07/2024 11:07 AM EDT Subjective HPI Nontoxic-appearing female presents urgent care chief complaint nausea vomiting abdominal pain. Duration of symptoms 2 days. Associated symptoms listed above. States yesterday she had approximately 8-10 loose stools 4-5 episodes of vomiting. Only 2 episodes of loose stool in vomit today. No blood. Was able to drink fluid. Stomach pain is improving. Feeling better today. Presents today for evaluation. Denies any fever body aches chills cough chest pain shortness of breath or rashes. No known sickcontacts. Past medical history prescription medications allergies reviewed. .Patient presents with: Nausea & Vomiting: Diarrhea x2 days PAST MEDICAL HISTORY Diagnosis Date Allergies Lundberg's palsy Bronchiectasis (HCC) Gastroesophageal reflux disease without esophagitis History of CVA (cerebrovascular accident) Mild intermittent asthma without complication Primary hypertension Type 2 diabetes mellitus without complication, without long-term current use of insulin (HCC) PAST SURGICAL HISTORY Procedure Laterality Date APPENDECTOMY CATARACT EXTRACTION HX COLONOSCOPY SCREENING 10/04/2022 no specimens collected, No further screening colonoscopies required HEMORRHOIDECTOMY HYSTERECTOMY HX without bso PAST SURGICAL HISTORY OF ? repair of cystocele RHINOPLASTY N/A TONSILLECTOMY & ADENOIDECTOMY <AGE 12 ALLERGIES Penicillins and Tetracycline MEDICATIONS metoprolol tartrate, short acting, (LOPRESSOR) 50 mg tablet Take 1.5 tablets by mouth two times a day. losartan (COZAAR) 100 mg tablet Take 1 tablet by mouth once daily. amLODIPine (NORVASC) 10 mg tablet Take 10 mg by mouth once daily. fluticasone-vilanterol (BREO ELLIPTA) 100-25 mcg/dose inhaler Inhale 1 Inhalation as instructed once daily. metFORMIN (GLUCOPHAGE) 500 mg tablet Take 2 tablets by mouth two times a day with meals. apixaban (ELIQUIS) 2.5 mg tab(s) Take 1 tablet by mouth two times a day. atorvastatin (LIPITOR) 20 mg tablet Take 1 tablet by mouth once daily. Blood Pressure Test Kit-Large (Mapidy ARM BP MONITOR) 1 Each once daily. pantoprazole DR (PROTONIX) 40 mg tablet Take 1 tablet by mouth once daily. Methylsulfonylmethane (MSM) 1,000 mg cap Take 1 capsule by mouth once daily. FAMILY HISTORY Problem Relation Age of Onset Lung Cancer Father Pancreatic Cancer Mother Heart disease Son No Ocular Disease No Family History Social History Tobacco Use Smoking status: Former Smokeless tobacco: Never Tobacco comments: Light smoker for 7 years in early adulthood Vaping Use Vaping Use: Never used Substance Use Topics Alcohol use: Not Currently Drug use: Never BP 124/72 Pulse 68 Temp 36.7 C (98.1 F) Resp 16 Wt 73.4 kg (161 lb 13.1 oz) SpO2 97% BMI 32.68 kg/m Review of Systems Constitutional: Negative for chills, fever and malaise/fatigue. HENT: Negative for congestion, ear discharge, ear pain, sinus pain and sore throat. Eyes: Negative for blurred vision, pain, discharge and redness. Respiratory: Negative for cough, hemoptysis, sputum production, shortness of breath, wheezing and stridor. Cardiovascular: Negative for chest pain. Gastrointestinal: Positive for abdominal pain, diarrhea, nausea and vomiting. Musculoskeletal: Negative for myalgias. Skin: Negative for itching and rash. Neurological: Negative for dizziness and headaches. Objective Physical Exam Constitutional: General: She is not in acute distress. Appearance: She is not diaphoretic. HENT: Head: Normocephalic. Jaw: No trismus, tenderness, swelling or pain on movement. Mouth/Throat: Mouth: Mucous membranes are moist. Pharynx: Oropharynx is clear. Uvula midline. No pharyngeal swelling, oropharyngeal exudate, posterior oropharyngeal erythema or uvula swelling. Eyes: Conjunctiva/sclera: Conjunctivae normal. Pupils: Pupils are equal, round, and reactive to light. Cardiovascular: Rate and Rhythm: Normal rate and regular rhythm. Heart sounds: Normal heart sounds. Pulmonary: Effort: Pulmonary effort is normal. No tachypnea, accessory muscle usage or respiratory distress. Breath sounds: Normal breath sounds. No stridor. No wheezing, rhonchi or rales. Abdominal: General: There is no distension. Palpations: Abdomen is soft. Tenderness: There is no abdominal tenderness. There is no guarding or rebound. Musculoskeletal: Cervical back: Normal range of motion and neck supple. No edema, erythema, rigidity or tenderness. No pain with movement. Normal range of motion. Lymphadenopathy: Cervical: No cervical adenopathy. Skin: General: Skin is warm and dry. Neurological: Mental Status: She is alert and oriented to person, place, and time. ASSESSMENT/PLAN: 1. Diarrhea, unspecified type - ICD9: 787.91, ICD10: R19.7 - COMPLETE BLOOD COUNT AND DIFFERENTIAL - COMPREHENSIVE METABOLIC PANEL Mild elevation in WBC and sugar otherwise labs unremarkable. No evidence of acute abdomen. No evidence of dehydration. Hemodynamically stable. Symptoms progressively improving. Treat conservatively at this point. Patient was educated on supportive therapies. Patient will follow up with primary care provider as needed. Patient was instructed to immediately proceed to emergency room for any new, worsening, or symptoms lasting longer than anticipated. The patient's clinical presentation is otherwise unremarkable at this time. Based on exam and clinical finding, the patient is stable for discharge. Plan of care was discussed with patient. Patient verbalizes understanding and agrees to plan of care. This note was generated using [employer] software. It may contain errors in wording, punctuation, or spelling. Fazal Law APRN.POLE INCISOR OPERATOR documented in this encounterTr[facility]02-29-2024 Miscellaneous Notes* Telephone Encounter - Virginia Doty LPN - 12/26/2023 1:41 PM EST Patient has been identified by name and date of : Yes, Patient phones for refill(s): Requested Prescriptions Pending Prescriptions Disp Refills metoprolol tartrate, short acting, (LOPRESSOR) 50 mg tablet 270 tablet 2 Sig: Take 1.5 tablets by mouth two times a day. Date of last office visit in primary care: 12/16/2023 Date of next office visit in primary care: 03/06/2024 Please advise. Thank you. Virginia Doty LPN. documented in this encounterTr[facility]02-19-2024 History of Present illness Narrative* Henok Martienz MD - 12/16/2023 10:07 AM EST Patient presents with: Follow Up HPI: Patient presents today for office visit for follow up. HTN: Monitors BP occ Denies chest pain and shortness of breath Some edema to B/L ankle occ. Is on amlodipine. Discussed support stocking. Better at night. No bleeding or bruising. Follows with Dr. Sarabia Follows with [facility]. Current therapy consists of Breo No coughing or wheezing DM: Does not check her sugars at home A1c is up ay 10.2 Tries to watch diet and sugar intake Discussed diabetic education. Declines. Admits to not following diet. Refuses to adjust meds. Declines seeing endo. Discussed risks of uncontrolled dm including blindness, loss limb, stroke, heart disease and kidneydisease. GERD: Continues on Pantoprazole Symptoms controlled No bloody or black stool Component Latest Ref Rng & Units 12/13/2023 Glucose 74 - 99 mg/dL 204 (H) BUN 7 - 21 mg/dL 16 Creatinine 0.58 - 0.96 mg/dL 0.95 Sodium 136 - 144 mmol/L 140 Potassium 3.7 - 5.1 mmol/L 4.7 Chloride 97 - 105 mmol/L 102 CO2 22 - 30 mmol/L 24 Anion Gap 9 - 18 mmol/L 14 Calcium 8.5 - 10.2 mg/dL 10.1 eGFR >=60 mL/min/1.73m 60 Hemoglobin A1C 4.3 - 5.6 % 10.2 (H) Estimated Average Glucose mg/dL 246 MEDICATIONS: Current Outpatient Medications Medication Sig amLODIPine (NORVASC) 10 mg tablet Take 10 mg by mouth once daily. fluticasone-vilanterol (BREO ELLIPTA) 100-25 mcg/dose inhaler Inhale 1 Inhalation as instructed once daily. metFORMIN (GLUCOPHAGE) 500 mg tablet Take 2 tablets by mouth two times a day with meals. apixaban (ELIQUIS) 2.5 mg tab(s) Take 1 tablet by mouth two times a day. atorvastatin (LIPITOR) 20 mg tablet Take 1 tablet by mouth once daily. metoprolol tartrate, short acting, (LOPRESSOR) 50 mg tablet Take 1.5 tablets by mouth twice daily. Blood Pressure Test Kit-Large (Mapidy ARM BP MONITOR) 1 Each once daily. pantoprazole DR (PROTONIX) 40 mg tablet Take 1 tablet by mouth once daily. losartan (COZAAR) 100 mg tablet Take 1 tablet by mouth once daily. Methylsulfonylmethane (MSM) 1,000 mg cap Take 1 capsule by mouth once daily. No current facility-administered medications for this visit. ALLERGIES: ALLERGIES Allergen Reactions Penicillins Anaphylaxis Tetracycline Rash PAST MEDICAL HISTORY Diagnosis Date Allergies Lundberg's palsy Bronchiectasis (HCC) Gastroesophageal reflux disease without esophagitis History of CVA (cerebrovascular accident) Mild intermittent asthma without complication Primary hypertension Type 2 diabetes mellitus without complication, without long-term current use of insulin (HCC) PAST SURGICAL HISTORY Procedure Laterality Date APPENDECTOMY CATARACT EXTRACTION HX COLONOSCOPY SCREENING 10/04/2022 no specimens collected, No further screening colonoscopies required HEMORRHOIDECTOMY HYSTERECTOMY HX without bso PAST SURGICAL HISTORY OF ? repair of cystocele RHINOPLASTY N/A TONSILLECTOMY & ADENOIDECTOMY <AGE 12 FAMILY HISTORY Problem Relation Age of Onset Lung Cancer Father Pancreatic Cancer Mother Heart disease Son No Ocular Disease No Family History Social History Tobacco Use Smoking status: Former Smokeless tobacco: Never Tobacco comments: Light smoker for 7 years in early adulthood Vaping Use Vaping Use: Never used Substance Use Topics Alcohol use: Not Currently Drug use: Never Reviewed current medications, allergies, past medical history, surgical history, family history andsocial history today. REVIEW OF SYSTEMS All other reviewed and negative other than HPI. HEALTH MAINTENANCE: Reviewed health maintenance issues today and recommended the following in detail. RSV Vaccine(1 - 1-dose 60+ series) Never done Advance Directive Discussion due on 10/28/2023 Depression Assessment due on 10/28/2023 VITALS: BP 110/52 Pulse 63 Ht 149.9 cm (4' 11) Wt 74.8 kg (165 lb) SpO2 99% BMI 33.33 kg/m Last 4 Encounter Wt Readings: Date: Wt: 11/26/2023 72.6 kg (160 lb) 09/05/2023 73.5 kg (162 lb) 05/20/2023 74.8 kg (165 lb) 05/20/2023 74.2 kg (163 lb 9.6 oz) PHYSICAL EXAMINATION: General appearance: Well appearing, alert, in no acute distress, well-hydrated, well nourished. Skin: Skin color, texture, turgor normal, no suspicious rashes or lesions Head: Normocephalic, no masses, lesions, tenderness or abnormalities Lungs: Lungs clear to auscultation. No wheezing, rhonchi, rales Heart: RRR without murmur, gallop, or rubs. No ectopy Abdomen: Normal abdominal exam, Abdomen soft, non-tender. Bowel sounds normal. No masses, organomegaly Extremities: No deformities, edema, skin discoloration, clubbing or cyanosis. Good capillary refill. ASSESSMENT/PLAN: 1. Cerebrovascular accident (CVA), unspecified mechanism (HCC) - ICD9: 434.91, ICD10: I63.9 (primary diagnosis) - stable 2. History of CVA (cerebrovascular accident) - ICD9: V12.54, ICD10: Z86.73 - stable 3. Primary hypertension - ICD9: 401.9, ICD10: I10 - Controlled - Continue current medications - LOSARTAN 100 MG TABLET - BASIC METABOLIC PNL 4. Atrial fibrillation, unspecified type (HCC) - ICD9: 427.31, ICD10: I48.91 - continue meds. 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 6. Bronchiectasis without complication (HCC) - ICD9: 494.0, ICD10: J47.9 - per pulmonary. 7. Type 2 diabetes mellitus without complication, without long-term current use of insulin (HCC) - ICD9: 250.00, ICD10: E11.9 - poorly controlled. Refuses endo, teaching and med changes. Labs in three months. Counseled on diet and risks. - HGB A1C Henok Martinez MD documented in this encounterTr[facility]11-22-2023 Miscellaneous Notes* Telephone Encounter - Taco Muller PA-C - 09/18/2023 4:48 PM EST Please advise potassium level was a little high, possibly from hemolysis. I am going to place orders to recheck that. Hemoglobin A1c is at 9.1%, uncontrolled, recommend increasing metformin to maximum dose, adjustmentin diet with reduce carbs, increase activity if able. After she starts the medication in 2 weeks had like her to do 3 days with fasting a.m. blood sugar and 2-hour PC blood sugar and then forward those results either by phone or MyChart so we can decideif she needs additional medication. Telephone on 09/18/23 BASIC METABOLIC PNL *Canceled* HGB A1C BASIC METABOLIC PNL The following approved medication requests have been transmitted electronically. Requested Prescriptions Signed Prescriptions Disp Refills metFORMIN (GLUCOPHAGE) 500 mg tablet 120 tablet 5 Sig: Take 2 tablets by mouth two times a day with meals. Authorizing Provider: Taco MLULER PA-C documented in this encounterTr[facility]11-09-2023 History of Present illness Narrative* Taco Muller PA-C - 09/05/2023 3:20 PM EST 83 year old female new to me here with son, with c/o 3 month follow-up rescheduled from Dr. 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 Current meds: Apixaban 2.5 mg twice a day Atorvastatin 20 mg daily Losartan 100 mg daily Metoprolol tartrate 50 mg 1.5 tablet twice daily Use of NTG: No Chest pain, arm, jaw pain, neck, or upper back pain suggestive of angina: No. SOB: No Dyspnea with exertion: No orthopnea: No Cough : No racing or irregular heartbeats: Yes, intermittent palpitations: Yes syncopal sx: No Headache: No Unexplainable fatigue No Leg swelling: No Nausea: No diaphoresis: No Heartburn: No Claudication: No Smoking: No, retired smoker Following Low cholesterol, high fiber diet? No If on statin: muscle aches? No If on statin: GI sx or diarrhea? No Additional history none. Lab review: Component Latest Ref Rng & Units 09/25/2021 08/31/2022 01/10/2023 04/09/2023 WBC 3.70 - 11.00 k/uL 8.41 8.65 RBC 3.90 - 5.20 m/uL 4.50 4.18 Hemoglobin 11.5 - 15.5 g/dL 13.2 12.2 Hematocrit 36.0 - 46.0 % 40.1 38.2 MCV 80.0 - 100.0 fL 89.1 91.4 MCH 26.0 - 34.0 pg 29.3 29.2 MCHC 30.5 - 36.0 g/dL 32.9 31.9 RDW-CV 11.5 - 15.0 % 12.7 13.0 Platelet Count 150 - 400 k/uL 201 240 MPV 9.0 - 12.7 fL 12.2 12.0 Neut% % 65.8 65.9 Abs Neut (ANC) 1.45 - 7.50 k/uL 5.53 5.69 Lymph% % 23.9 23.1 Abs Lymph 1.00 - 4.00 k/uL 2.01 2.00 [place]% % 8.4 8.4 Abs [place] <0.87 k/uL 0.71 0.73 Eosin% % 1.7 2.0 Abs Eosin <0.46 k/uL 0.14 0.17 Baso% % 0.2 0.3 Abs Baso <0.11 k/uL <0.03 0.03 Immature Gran % % 0.3 IMMATURE GRANS (ABS) <0.10 k/uL 0.03 NRBC /100 WBC 0.0 Absolute nRBC <0.01 k/uL <0.01 <0.01 DTYPE Auto Nucleated Reds 0 /100 WBC 0.0 Diff Type Auto Diff Protein, Total 6.3 - 8.0 g/dL 6.7 7.3 Albumin 3.9 - 4.9 g/dL 4.3 4.4 Calcium 8.5 - 10.2 mg/dL 10.1 9.8 9.7 Bilirubin, Total 0.2 - 1.3 mg/dL 0.3 0.3 Alkaline Phosphatase 34 - 123 U/L 93 102 AST 13 - 35 U/L 19 27 ALT 7 - 38 U/L 14 41 (H) Glucose 74 - 99 mg/dL 166 (H) 184 (H) 223 (H) BUN 7 - 21 mg/dL 14 11 14 Creatinine 0.58 - 0.96 mg/dL 0.77 0.64 0.82 Sodium 136 - 144 mmol/L 140 140 135 (L) Potassium 3.7 - 5.1 mmol/L 4.3 4.1 4.3 Chloride 97 - 105 mmol/L 103 106 (H) 98 CO2 22 - 30 mmol/L 29 24 26 Anion Gap 9 - 18 mmol/L 8 (L) 10 11 eGFR >=60 mL/min/1.73m 77 88 72 Cholesterol, Total <200 mg/dL 227 (H) 127 Triglyceride <150 mg/dL 145 103 HDL Cholesterol >39 mg/dL 47 50 Non HDL Cholesterol <130 mg/dL 180 (H) 77 Fasting Time hrs 14 12 VLDL Cholesterol <30 mg/dL 29 21 TC:HDL Ratio <5.10 4.83 2.54 LDL Cholesterol <100 mg/dL 151 (H) 56 LDL:HDL Ratio <2.54 3.21 (H) 1.12 Bronchiectasis without complication (hcc) Mild intermittent asthma without complication Fibreglass Laminator: Dr. Nancy Medlye, Danielle Brown, PA-C. Interval history: 05/20/2023 last visit with pulmonology: Doing well, not requiring additional albuterol Patient denies any recent respiratory infections, ER visits or hospitalizations. Current medications: Fluticasone-vilanterol 100-25 mcg per dose 1 inhalation daily Worsening shortness of breath: No. Cough: No. Wheezing: No. Smoking: No. Compliant with medications: Yes. Using rescue inhaler: not using. Type 2 diabetes mellitus without complication, without long-term current use of insulin (hcc) Diabetes Mellitus Type 2: Current medications: Metformin 500 mg 3 times daily with meals Taking medication as directed consistently? Yes Medication side effects: Medical Issues / Complications: hypertension Checking blood sugars at home? No. Watching diet? Eats a lot garbage, vegetables, fruit, a little fruit juice Physical Activity: Regular Hypoglycemic spells? No Any visual disturbance? Yes, has appoint 2023 Chest pain? No New numbness, tingling or loss of sensation? No Any recent foot problems, sores or rashes? No Any recent or sudden weight loss? No Change in urination? Yes. If yes: up a lot at night and day, drinks a lot of water Any recent illness? No Last eye exam: up to date. Last foot exam: up to date. HBA1C: Hemoglobin A1C (%) Date Value 04/09/2023 8.4 01/10/2023 9.5 09/25/2021 10.2 ) CMP: Glucose 223 04/09/2023 BUN 14 04/09/2023 Creatinine 0.82 04/09/2023 Sodium 135 04/09/2023 Potassium 4.3 04/09/2023 Chloride 98 04/09/2023 CO2 26 04/09/2023 Protein, Total 7.3 01/10/2023 Albumin 4.4 01/10/2023 Calcium 9.7 04/09/2023 Alkaline Phosphatase 102 01/10/2023 Bilirubin, Total 0.3 01/10/2023 AST 27 01/10/2023 ALT 41 01/10/2023 Last 2 Encounter Wt Readings: Date: Wt: 05/20/2023 74.8 kg (165 lb) 05/20/2023 74.2 kg (163 lb 9.6 oz) Gastroesophageal reflux disease without esophagitis Current medication: Pantoprazole DR 40 mg daily AC. Current symptoms: none. Last Mg level if on PPI chronically: none. Heartburn is controlled: Yes. Dysphagia: Yes. Pill dysphagia, not with food: asking for ENT consult Bloody or black stools: No. Bowel changes: No. History of uterine cancer Resolved with hysterectomy Supplements: MSM 1000 mg daily HISTORIES FAMILY HISTORY Problem Relation Age of Onset Lung Cancer Father Pancreatic Cancer Mother Heart disease Son No Ocular Disease No Family History PAST MEDICAL HISTORY Diagnosis Date Allergies Lundberg's palsy Bronchiectasis (HCC) Gastroesophageal reflux disease without esophagitis History of CVA (cerebrovascular accident) Mild intermittent asthma without complication Primary hypertension Type 2 diabetes mellitus without complication, without long-term current use of insulin (HCC) PAST SURGICAL HISTORY Procedure Laterality Date APPENDECTOMY CATARACT EXTRACTION HX COLONOSCOPY SCREENING 10/04/2022 no specimens collected, No further screening colonoscopies required HEMORRHOIDECTOMY HYSTERECTOMY HX without bso PAST SURGICAL HISTORY OF ? repair of cystocele RHINOPLASTY N/A TONSILLECTOMY & ADENOIDECTOMY <AGE 12 Social History Tobacco Use Smoking status: Former Smokeless tobacco: Never Tobacco comments: Light smoker for 7 years in early adulthood Vaping Use Vaping Use: Never used Substance Use Topics Alcohol use: Not Currently Drug use: Never ACTIVE PROBLEM LIST Mild Intermittent Asthma Without Complication Primary Hypertension Type 2 Diabetes Mellitus Without Complication, Without Long-Term Current Use of Insulin (Hcc) Gastroesophageal Reflux Disease Without Esophagitis History of Cva (Cerebrovascular Accident) Atrial Myxoma History of Uterine Cancer Bronchiectasis Without Complication (Hcc) Atrial Fibrillation, Unspecified Type (Hcc) Chest Pain Hyperlipidemia 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 60 tablet 3 fluticasone-vilanterol (BREO ELLIPTA) 100-25 mcg/dose inhaler Inhale 1 Inhalation as instructed once daily. 1 Each 5 atorvastatin (LIPITOR) 20 mg tablet Take 1 tablet by mouth once daily. 90 tablet 3 metoprolol tartrate, short acting, (LOPRESSOR) 50 mg tablet Take 1.5 tablets by mouth twice daily. 180 tablet 3 Blood Pressure Test Kit-Large (Mapidy ARM BP MONITOR) 1 Each once daily. [address] (PROTONIX) 40 mg tablet Take 1 tablet by mouth once daily. 90 tablet 3 metFORMIN (GLUCOPHAGE) 500 mg tablet Take 1 tablet by mouth three times daily before meals. 270 tablet 3 losartan (COZAAR) 100 mg tablet Take 1 tablet by mouth once daily. 90 tablet 3 Methylsulfonylmethane (MSM) 1,000 mg cap Take 1 capsule by mouth once daily. No current facility-administered medications for this visit. Hepatitis B Vaccine(1 of 3 - Risk 3-dose series) Never done RSV Vaccine(1 - 1-dose 60+ series) Never done Advance Directive Discussion Never done Influenza Vaccine(1) Never done Covid-19 Vaccine(2022- season) due on 06/28/2023 HbA1C due on 07/10/2023 Urine Albumin:Creatinine Ratio due on 08/31/2023 EXAM: BP 132/70 Pulse 68 Resp 16 Wt 73.5 kg (162 lb) SpO2 99% BMI 32.72 kg/m Pleasant elderly woman in no acute distress. Alert and oriented all spheres. Normal affect and cognition. Speech normal. No deficits to learning or comprehension. Skin warm, dry, pink to lips and nailbeds. Normal turgor. Respirations regular and unlabored. HEENT: NCAT. No scleral icterus or conjunctival injection. TM's clear. Nose and oropharynx free from injection or lesion. Oral membranes moist and pink. No cervical lymph nodes. Thyroid non-tender, no masses, or enlargement. Carotids pulses 2+/4+ without bruits. No JVD with HOB at 30 degrees. Chest is normal shape. Lungs are clear to all monsalve with good air exchange through out. HRRR with systolic murmur Extrem: no clubbing, cyanosis, edema. Distal pulses 2+/4, prompt capillary refill. ASSESSMENT/PLAN: 1. Cerebrovascular accident (CVA), unspecified mechanism (HCC) - ICD9: 434.91, ICD10: I63.9 (primary diagnosis) Some word recall issues, mild memory loss. 2. Atrial fibrillation, unspecified type (HCC) - ICD9: 427.31, ICD10: I48.91 Stale, asymptomatic 3. 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 assisted current use of anticoagulant therapy - ICD9: V58.61, ICD10: Z79.01 - CBC + DIFF 6. Hyperlipidemia, unspecified hyperlipidemia type - ICD9: 272.4, ICD10: E78.5 - Controlled - Continue current medications - Counseled on healthy diet and regular exercise 7. History of CVA (cerebrovascular accident) - ICD9: V12.54, ICD10: Z86.73 Mild residual with expressive 8. Impaired cognition - ICD9: 294.9, ICD10: R41.89 mild 9. Bronchiectasis without complication (HCC) - ICD9: 494.0, ICD10: J47.9 No current sx. Educated on diagnosis 10. Mild intermittent asthma without complication - ICD9: 493.90, ICD10: J45.20 - Mild intermittent asthma stable - Continue current medications - Avoidance of triggers recommended 11. Type 2 diabetes mellitus without complication, without long-term current use of insulin (HCC) -ICD9: 250.00, ICD10: E11.9 - Controlled - Continue current medications - CBC + DIFF - COMP METABOLIC PANEL - LIPID PANEL BASIC - ALBUMIN/CREAT RATIO RND UR - HGB A1C 12. Gastroesophageal reflux disease without esophagitis - ICD9: 530.81, ICD10: K21.9 - Discussed lifestyle modifications including losing weight, limiting caffeine, no meals three hours before sleep, and head of bed elevation - Continue treatment with pantoprazole 40 mg QD 13. History of uterine cancer - ICD9: V10.42, ICD10: Z85.42 Resolved with surgery 14. Encounter for immunization - ICD9: V03.89, ICD10: Z23 15. Pill dysphagia - ICD9: 787.20, ICD10: R13.10 Patient requests ENT consult - CONSULT TO ENT 16. Left ear pain - ICD9: 388.70, ICD10: H92.02 Patient requests ENT consult - CONSULT TO ENT F/u 6 months or as needed Some of this note may have been copied and pasted for the purpose of history context and comparisonand has been adjusted for changes in prior data. Taco Muller PA-C documented in this encounterTr[facility]-09-2023 Miscellaneous Notes* Telephone Encounter - Lena Lopez LPN - 08/05/2023 1:28 PM EDT Timothy arguello. * Telephone Encounter - Daina Ríos RN - 08/05/2023 1:24 PM EDT Called and left a voicemail for the Patient to call back and ask for a nurse to receive the providers message. Daina Ríos RN * Telephone Encounter - Clarita Boggs APRN.CNP - 08/05/2023 1:09 PM EDT Script sent. Clarita Boggs APRN.POLE INCISOR OPERATOR * Telephone Encounter - Daina Ríos RN - 08/05/2023 12:08 PM EDT Pt is out, pharmacy gave her an emergency fill to get her through until provider could send it in. Patient has been identified by name and date of : Yes, Provider Dr Martinez Date 08/05/23 Time 1210. Girma Aguirre phones for refill(s): Requested Prescriptions Pending Prescriptions Disp Refills apixaban (ELIQUIS) 2.5 mg tab(s) 60 tablet 3 Sig: Take 1 tablet by mouth two times a day. Date of last office visit in primary care: 05/20/23 Future visit: 08/26/23 Last 2 Encounter Wt Readings: Date: Wt: 05/20/2023 74.8 kg (165 lb) 05/20/2023 74.2 kg (163 lb 9.6 oz) Previous labs/tests for medication: Blood Pressure: BUN (mg/dL) Date Value 04/09/2023 14 09/25/2021 14 Sodium (mmol/L) Date Value 04/09/2023 135 09/25/2021 139 Last 1 Encounter BP Readings: Date: BP: 05/20/2023 134/74 Please advise. Thank you. Daina Ríos, RN documented in this encounterTr[facility]08-29-2023 History of Present illness Narrative* Emma Mcnally, OD - 06/25/2023 10:12 AM EDT 1. Dry eye syndrome of bilateral lacrimal glands Good improvement in signs/symptoms Continue artificial tears and gel nightly Add warm compresses daily 2. PCO (posterior capsular opacification), left Educated pt that it is not central involving and will continue to monitor 3. Type 2 diabetes mellitus without complication, without long-term current use of insulin ([facility]) Monitor 4. Pseudophakia of both eyes 5. Presbyopia Monitor Follow-up in 10 months for complete diabetic eye exam Emma Mcnally OD June 25, 2023 10:12 AM documented in this encounterTrinity [facility]08-29-2023 Instructions* Patient Instructions* Emma Mcnally, OD - 06/25/2023 10:06 AM EDT Use warm compresses daily Continue: Systane Complete or Refresh Relieva 2-3 times daily Systane, Refresh or Blink gel nightly before bed in both eyes documented in this encounterTrinity [facility]07-24-2023 History of Past illness Narrative* Problem Noted Date Diagnosed Date Resolved Date Candidiasis of vagina 05/20/2023 05/20/20232022 Neck pain 05/20/2023 05/20/2023 05/20/2023 documented as of this encounter (statuses as of 06/25/2023) [facility] History of Past illness Narrative* Problem Noted Date Diagnosed Date Resolved Date Candidiasis of vagina 05/20/2023 05/20/20232022 Neck pain 05/20/2023 05/20/2023 05/20/2023 documented as of this encounter (statuses as of 08/06/2023) [facility] History of Past illness Narrative* Problem Noted Date Diagnosed Date Resolved Date Candidiasis of vagina 05/20/2023 05/20/20232022 Neck pain 05/20/2023 05/20/2023 05/20/2023 documented as of this encounter (statuses as of 09/06/2023) [facility] History of Past illness Narrative* Problem Noted Date Diagnosed Date Resolved Date Candidiasis of vagina 05/20/2023 05/20/20232022 Neck pain 05/20/2023 05/20/2023 05/20/2023 documented as of this encounter (statuses as of 09/18/2023) [facility] History of Past illness Narrative* Problem Noted Date Diagnosed Date Resolved Date Candidiasis of vagina 05/20/2023 05/20/20232022 Neck pain 05/20/2023 05/20/2023 05/20/2023 documented as of this encounter (statuses as of 12/16/2023) [facility] History of Past illness Narrative* Problem Noted Date Diagnosed Date Resolved Date Candidiasis of vagina 05/20/2023 05/20/20232022 Neck pain 05/20/2023 05/20/2023 05/20/2023 documented as of this encounter (statuses as of 12/27/2023) [facility] History of Past illness Narrative* Problem Noted Date Diagnosed Date Resolved Date Candidiasis of vagina 05/20/2023 05/20/20232022 Neck pain 05/20/2023 05/20/2023 05/20/2023 documented as of this encounter (statuses as of 02/07/2024) [facility] Foster [facility] April 22, 2023 8:09pm Note Date/Time April 22, 2023 8:09 pm [facility] Medical Records Department [address] [place] [address] Emergency Department Summary 04/22/23 MR#: [id number] Acct: [id number] Name: TELMA TINEO Rep #:[id number] : 1940 82 From: Gabe Foster DO PCP: Dr. Henok Martinez MD Status:REG E R Location: ED HPI History of Present Illness Chief Complaint: Hypertension Narrative Narrative: 82-year-old female presenting with headache. She states her blood pressures been elevated today. She has taken her regular blood pressure medicine as prescribed. She states she takes 75 mg of metoprolol tartrate twice daily and losartan 100 mg daily. She states that she does have some light sensitivity andsound sensitivity. Denies any direct trauma. Patient is on Eliquis for historyof A-fib. She does not have chest pain and shortness of breath but does feel generally weak. She states she has history of stroke in the past. [facility] Medical History Asthma Complaint of melena Diabetes mellitus, type 2 Essential hypertension Former smoker GERD (gastroesophageal reflux disease) History of Lundberg's palsy History of blood transfusion History of cancer History of TIA (transient ischemic attack) Neck pain, bilateral Right atrial mass Stroke/cerebrovascular accident Home Medications multivitamin 1 tab PO DAILY 06/19/21 [History Last Taken Unknown] pantoprazole 40 mg tablet,delayed release 40 mg PO DAILY gerd #90 tabs 08/28/21 [Rx Last Taken Unknown] metformin 500 mg tablet 500 mg PO BID 02/15/22 [History Last Taken Unknown] metoprolol tartrate 50 mg tablet 75 mg PO BID 02/15/22 [History Last Taken Unknown] apixaban 2.5 mg tablet (Eliquis) 2.5 mg PO BID #180 tabs 02/21/22 [Rx Last Taken Unknown] atorvastatin 20 mg tablet 20 mg PO QHS 03/07/23 [History Last Taken Unknown] fluticasone furoate 100 mcg-vilanterol 25 mcg/dose inhalation powder (Breo Ellipta) 1 inh inhalation DAILY 03/07/23 [History Last Taken Unknown] losartan 100 mg tablet 100 mg PO DAILY 03/07/23 [History Last Taken Unknown] Allergy/AdvReac Type Severity Reaction Status Date / Time tetracycline Allergy Unknown anaphylaxis Verified 04/22/23 16:54 Penicillins Allergy Anaphylaxis Verified 04/22/23 16:54 Family History Mother Pancreatic cancer CAD (coronary artery disease) Father Cancer Lung cancer Brother Parkinson disease Surgical History H/O hemorrhoidectomy H/O rhinoplasty H/O: hysterectomy History of appendectomy History of bladder surgery History of cataract surgery History of surgery Social History Smoking Status: Former smoker how long ago did patient quit smokin+ years alcohol intake: never substance use type: does not use ROS ROS ED Constitutional Constitutional ED: Denies chills or fever(s) Eyes Eyes: Reports other Details: Light sensitivity ENT ENT ED: Reports other Details: Sound sensitivity Respiratory/Chest Respiratory/Chest: Denies cough or dyspnea Gastrointestinal Gastrointestinal: Denies abdominal pain, constipation or diarrhea Genitourinary Genitourinary ED: Denies dysuria or hematuria Musculoskeletal Musculoskeletal: Denies arthralgias or back pain Integumentary Denies abscess or Abrasions Neurologic Neurologic: Denies headache(s) or paresthesias EXAM Physical Exam Const Vital Signs: 04/22/23 16:52 04/22/23 17:09 04/22/23 19:53 Temperature 97 F L Temperature Source Temporal Pulse Rate 74 Respiratory Rate 18 Respiratory Effort Normal Non-Labored Respiratory Pattern Normal Blood Pressure 197/102 H 174/95 H Blood Pressure Mean 133 121 Pulse Ox 96 Oxygen Delivery Method Room Air Positive well nourished General Appearance ED: NAD; Negative for pallor HEENT Reports moist mucous membranes Eyes PERRL and EOMs intact bilaterally Chest Wall inspection of chest normal and palpation of chest normal Resp normal respiratory effort and clear to auscultation bilaterally Auscultation: Negative for rales, rhonchi or wheezes Cardio regular rate and regular rhythm GI normal to inspection, nondistended, normoactive bowel sounds Neuro oriented x3 and CN's II-XII intact bilaterally Sensorium / Orientation: alert Skin no rashes or lesions noted and no wounds General Skin Exam: Negative for jaundice or pallor MDM MDM MDM Narrative Medical decision making narrative: Patient presenting hypertension and headache. She is on Eliquis. She does not report any chest pain but does have generalized weakness. She is treated with Reglan and Benadryl. Differential includes intracranial hemorrhage, migraine, dehydration, electrode abnormalities, anemia, pneumonia. Will obtain a CT brainto rule out cranial hemorrhage. CBC to assess white blood cell count, hemoglobin and platelets. CMP to assess liver function, renal function, electrolytes. High-sensitivity troponin and EKG to assess for ischemia. Chest x-ray to rule out pneumonia. CBC and CMP are unremarkable. High-sensitivity troponin within normal limits at 52. EKG A-fib at a controlled ventricular rateof 71 bpm without sign of ischemic change. Chest x- ray shows no acute process on my interpretation. CT brain was negative. Patient reevaluated and feeling improved. I gave her her oral nightly dose of metoprolol. I recommend she follows up with her PCP to ensure resolution. Impression: 1. hypertension 2. Headache 3. Weakness Lab Data Labs: Laboratory Results - last 24 hr 04/22/23 04/22/23 18:15 18:15 WBC 7.7 RBC 4.02 L Hgb 11.6 L Hct 36.3 L MCV 90.3 MCH 28.9 MCHC 32.0 RDW Std Deviation 43.6 RDW Coeff of [place] 13.2 Plt Count 181 MPV 12.7 H Immature Gran % (Auto) 0.400 Neut % (Auto) 65.0 Lymph % (Auto) 23.0 [place] % (Auto) 9.0 Eos % (Auto) 2.2 Baso % (Auto) 0.4 Absolute Neuts (auto) 5.0 Absolute Lymphs (auto) 1.77 Nucleated RBC % 0 Sodium 139 Potassium 4.1 Chloride 106 Carbon Dioxide 27.0 Anion Gap 6 BUN 11 Creatinine 0.83 Estim Creat Clear Calc 37.54 Est GFR (MDRD) Af Amer 84 Est GFR (MDRD) Non-Af 70 BUN/Creatinine Ratio 13.2 Glucose 125 H Calcium 9.5 Total Bilirubin 0.50 AST 40 H ALT 61 H Alkaline Phosphatase 102 Troponin I High Sens 52 Total Protein 6.9 Albumin 3.6 Globulin 3.3 Albumin/Globulin Ratio 1.1 Radiography Diagnostic Testing: Clinical Impression(s) from Imaging Studies Brain CT 04/22/23 17:55 IMPRESSION: Normal unenhanced CT scan of the brain. Electronically Signed: Bharati Maya MD at 19:00 EDT Reading Location ID and State: [place] / Tel , Service support , Chest X-Ray 04/22/23 18:35 IMPRESSION: No radiographic evidence of acute cardiopulmonary disease. Electronically Signed: Bharati Maya MD at 19:01 EDT Reading Location ID and State: [place] / Tel , Service support , Discharge Plan Triage Chief Complaint: Hypertension ED Provider: Gabe Foster Dx/Rx/DC Orders Prescriptions: No Action pantoprazole 40 mg tablet,delayed release (DR/EC) 40 mg PO DAILY Qty: 90 3RF multivitamin Tablet 1 tab PO DAILY metoprolol tartrate 50 mg tablet 75 mg PO BID metformin 500 mg tablet 500 mg PO BID losartan 100 mg tablet 100 mg PO DAILY atorvastatin 20 mg tablet 20 mg PO QHS Label Comments: TAKE 1 TABLET BY MOUTH ONCE DAILY fluticasone furoate-vilanterol [Breo Ellipta] 100-25 mcg/dose blister with device 1 inh inhalation DAILY Label Comments: INHALE 1 PUFF BY MOUTH ONCE DAILY DIRECTED Eliquis 2.5 mg tablet 2.5 mg PO BID Qty: 180 2RF Primary Care Provider: Henok Martinez Referrals: Henok Martinez MD [Primary Care Provider] - What to do if you have Problems For any increased pain, shortness of breath, bleeding, nausea or vomiting, chestpain, or any unexpected problems, contact your Primary Care Provider. Call [facility] ([phone]) or report to the closest Emergency Room. Call 911 if necessary. 04/22/232008 <Electronically signed by Gabe Foster DO> Cosigner Signature (if applicable): CC: Dr. Henok Martinez MD ~ Signed [facility] Work Phone: 1(378) 944-324206-19-2023 Instructions* Patient Instructions* Clarita Boggs APRN.POLE INCISOR OPERATOR - 04/15/2023 1:29 PM EDT Stop the hydrochlorothiazide. Increase the metolprolol to 75 mg (1 1/2 tablets) twice daily. Recheck BP in 2-3 weeks. documented in this encounterTr[facility]06-19-2023 History of Present illness Narrative* Clarita Boggs APRN.CNP - 04/15/2023 1:08 PM EDT This is a 82 year old female who presents today with: Patient presents with: Recheck: 2 week bp check- added hctz HISTORY OF PRESENT ILLNESS: Telma Tineo is a 82 year old female. Patient presents with: Recheck: 2 week bp check- added hctz Pt presents today for recheck of blood pressure. Had HCTZ added two weeks ago. HTN: Patient is compliant with meds Yes -- but states that she is not going to take any longer. Monitors bp at home: Yes. 130's. Denies side effects: No - refers that it makes her like a zombie or ghostly. Chest pain: No. Dyspnea: No. Edema: just dependent when traveling. Palpitations: No. Syncope: No. Headache: No. Dizziness: No. PAST MEDICAL HISTORY: PAST MEDICAL HISTORY Diagnosis Date Allergies Lundberg's palsy Bronchiectasis (HCC) Gastroesophageal reflux disease without esophagitis History of CVA (cerebrovascular accident) Mild intermittent asthma without complication Primary hypertension Type 2 diabetes mellitus without complication, without long-term current use of insulin (HCC) PAST SURGICAL HISTORY Procedure Laterality Date APPENDECTOMY CATARACT EXTRACTION HX COLONOSCOPY SCREENING 10/04/2022 no specimens collected, No further screening colonoscopies required HEMORRHOIDECTOMY HYSTERECTOMY HX without bso PAST SURGICAL HISTORY OF ? repair of cystocele RHINOPLASTY N/A TONSILLECTOMY & ADENOIDECTOMY <AGE 12 ALLERGIES Penicillins and Tetracycline MEDICATIONS Current Outpatient Medications Medication Sig Blood Pressure Test Kit-Large (Mapidy ARM BP MONITOR) 1 Each once daily. hydroCHLOROthiazide 12.5 mg capsule Take 1 capsule by mouth once daily. apixaban (ELIQUIS) 2.5 mg tab(s) Take 1 tablet by mouth twice daily. pantoprazole DR (PROTONIX) 40 mg tablet Take 1 tablet by mouth once daily. azithromycin (ZITHROMAX) 250 mg tablet estradiol (ESTRACE) 0.01 % (0.1 mg/gram) vaginal cream Use 1 g vaginally once daily. For 2 weeks. Then use 1 gram 3 times per week. metFORMIN (GLUCOPHAGE) 500 mg tablet Take 1 tablet by mouth three times daily before meals. fluticasone-vilanterol (BREO ELLIPTA) 100-25 mcg/dose inhaler Inhale 1 Inhalation as instructed once daily. losartan (COZAAR) 100 mg tablet Take 1 tablet by mouth once daily. atorvastatin (LIPITOR) 20 mg tablet Take 1 tablet by mouth once daily. metoprolol tartrate, short acting, (LOPRESSOR) 50 mg tablet Take 1 tablet by mouth twice daily. Methylsulfonylmethane (MSM) 1,000 mg cap Take 1 capsule by mouth once daily. No current facility-administered medications for this visit. FAMILY HISTORY Problem Relation Age of Onset Lung Cancer Father Pancreatic Cancer Mother Heart disease Son No Ocular Disease No Family History Social History Tobacco Use Smoking status: Former Smokeless tobacco: Never Tobacco comments: Light smoker for 7 years in early adulthood Vaping Use Vaping Use: Never used Substance Use Topics Alcohol use: Not Currently Drug use: Never EXAM: BP 144/96 Pulse 77 Resp 16 SpO2 99% PHYSICAL EXAM: General Appearance: Well appearing, alert, in no acute distress, well-hydrated, well nourished.. Skin: Skin color, texture, turgor normal, no suspicious rashes or lesions. Head: Normocephalic, no masses, lesions, tenderness or abnormalities. Eyes: Anicteric sclera. Extraocular movements are intact. . Lungs: Lungs clear to auscultation. No wheezing, rhonchi, rales.. Heart: RRR without murmur, gallop, or rubs. No ectopy. Extremities: No deformities, edema, skin discoloration, clubbing or cyanosis. Good capillary refill. . Neurologic: Gait normal. ASSESSMENT/PLAN: 1. Primary hypertension - ICD9: 401.9, ICD10: I10 (primary diagnosis) Improved control, but reports that she will not continue the HCTZ as it makes foreign feel like a zombie. She is aware of the risks of HTN -- including NE, CVA, . Discussed options and she is agreeable to increasing the metoprolol to 75 mg daily. She will increase metoprolol to 75 mg ( 1 1/2 tabs) twice daily. She has follow-up appt already scheduled in a month. She will continue to check home blood pressures and notify provider if elevated. - METOPROLOL TARTRATE 50 MG TABLET 2. History of CVA (cerebrovascular accident) - ICD9: V12.54, ICD10: Z86.73 - ATORVASTATIN 20 MG TABLET Discussed treatment plan and patient voices understanding. Patient's questions answered appropriately. Medications and potential side effects were discussed and patient voices understanding. Return to the office as scheduled or as needed for worsening/no improvement. Clarita Boggs APRN.POLE INCISOR OPERATOR documented in this encounterTr[facility]06-05-2023 History of Present illness Narrative* Henok Martinez MD - 04/01/2023 4:00 PM EDT Patient presents with: ER F/U HPI: Patient presents today for office visit for follw up. HOSPITAL/ER FOLLOW UP: Reason for visit: HTN Which facility: [facility] Date of visit: 03/31/23 Diagnosis: HTN Testing done: CT head, EKG, labs Treatment given: hydralazine 20mg, clonidine 0.1mg Current symptoms: some headache but that has been since cardiac cath on 03/18/23 Denies chest pain or edema States that gets shortness of breath with heat we have been having. Does not take glucose at home has no glucometer and not interested in doing so. Reviewed heart cath. MEDICATIONS: Current Outpatient Medications Medication Sig azithromycin (ZITHROMAX) 250 mg tablet (Patient not taking: Reported on 02/15/2023) estradiol (ESTRACE) 0.01 % (0.1 mg/gram) vaginal cream Use 1 g vaginally once daily. For 2 weeks. Then use 1 gram 3 times per week. metFORMIN (GLUCOPHAGE) 500 mg tablet Take 1 tablet by mouth three times daily before meals. fluticasone-vilanterol (BREO ELLIPTA) 100-25 mcg/dose inhaler Inhale 1 Inhalation as instructed once daily. losartan (COZAAR) 100 mg tablet Take 1 tablet by mouth once daily. apixaban (ELIQUIS) 2.5 mg tab(s) Take 1 tablet by mouth twice daily. atorvastatin (LIPITOR) 20 mg tablet Take 1 tablet by mouth once daily. pantoprazole DR (PROTONIX) 40 mg tablet Take 1 tablet by mouth once daily. metoprolol tartrate, short acting, (LOPRESSOR) 50 mg tablet Take 1 tablet by mouth twice daily. Methylsulfonylmethane (MSM) 1,000 mg cap Take 1 capsule by mouth once daily. No current facility-administered medications for this visit. ALLERGIES: ALLERGIES Allergen Reactions Penicillins Anaphylaxis Tetracycline Rash PAST MEDICAL HISTORY Diagnosis Date Allergies Lundberg's palsy Bronchiectasis (HCC) Gastroesophageal reflux disease without esophagitis History of CVA (cerebrovascular accident) Mild intermittent asthma without complication Primary hypertension Type 2 diabetes mellitus without complication, without long-term current use of insulin (HCC) PAST SURGICAL HISTORY Procedure Laterality Date APPENDECTOMY CATARACT EXTRACTION HX COLONOSCOPY SCREENING 10/04/2022 no specimens collected, No further screening colonoscopies required HEMORRHOIDECTOMY HYSTERECTOMY HX without bso PAST SURGICAL HISTORY OF ? repair of cystocele RHINOPLASTY N/A TONSILLECTOMY & ADENOIDECTOMY <AGE 12 FAMILY HISTORY Problem Relation Age of Onset Lung Cancer Father Pancreatic Cancer Mother Heart disease Son No Ocular Disease No Family History Social History Tobacco Use Smoking status: Former Smokeless tobacco: Never Tobacco comments: Light smoker for 7 years in early adulthood Vaping Use Vaping Use: Never used Substance Use Topics Alcohol use: Not Currently Drug use: Never Reviewed current medications, allergies, past medical history, surgical history, family history andsocial history today. REVIEW OF SYSTEMS All other reviewed and negative other than HPI. VITALS: BP 172/72 Pulse 83 Wt 74.8 kg (165 lb) SpO2 100% BMI 33.33 kg/m Last 4 Encounter Wt Readings: Date: Wt: 02/25/2023 75.9 kg (167 lb 4.8 oz) 02/08/2023 75.7 kg (166 lb 12.8 oz) 01/25/2023 76.7 kg (169 lb 3.2 oz) 11/16/2022 75.8 kg (167 lb) PHYSICAL EXAMINATION: General appearance: Well appearing, alert, in no acute distress, well-hydrated, well nourished. Skin: Skin color, texture, turgor normal, no suspicious rashes or lesions Head: Normocephalic, no masses, lesions, tenderness or abnormalities Lungs: Lungs clear to auscultation. No wheezing, rhonchi, rales Heart: RRR without murmur, gallop, or rubs. No ectopy Abdomen: Normal abdominal exam, Abdomen soft, non-tender. Bowel sounds normal. No masses, organomegaly Extremities: No deformities, edema, skin discoloration, clubbing or cyanosis. Good capillary refill. ASSESSMENT/PLAN: 1. Primary hypertension - ICD9: 401.9, ICD10: I10 (primary diagnosis) She has been reluctant to increase meds. Discussed risks and benefits of new medication with the patient. Advised them to call if any side effects or questions. Add hctz. Recheck labs and follow up with one of us in two weeks. Red flags for re- assessment reviewed with patient in detail. - BASIC METABOLIC PNL - HYDROCHLOROTHIAZIDE 12.5 MG CAPSULE 2. Type 2 diabetes mellitus without complication, without long-term current use of insulin (HCC) - ICD9: 250.00, ICD10: E11.9 - recheck labs - HGB A1C Henok Martinez MD documented in this encounterTrinity [facility]05-01-2023 Instructions* Patient Instructions* Sun Beal, ROSIO - 02/25/2023 2:10 PM EDT Add in regular exercise, plan to walk 30 min most days 1. Follow a consistent carbohydrate controlled diet 2. Consistent carbohydrate intake of 1-2 carbs per meal or 15 -30 grams include lean protein in each meal. 3 Consume whole grains (whole wheat, oatmeal, bran flakes, popcorn); look for bagel thins and include protein in meal 4 Consume fresh or frozen fruits and vegetables; limit fruit to one fruit serving per eating event. 5 Use lean meats (poultry, fish, lean beef or pork). 6 Use calorie-free or sugar-free beverages, no juice 7 Use healthy fats: Hermann oil, canola oil, walnuts, ground flaxseed or flaxseed oil, almonds, sunflower/pumpkin seeds, butter spray, margarine with no trans fatty acids, cooking spray. 8 Keep a food journal week to monitor food choices and diet plan adherence. 9 Increase physical activity - Minimum of 30 minutes per day for 5-6 times per week. 10. Weigh and measure your serving sizes until you are comfortable with visibly estimating accurateportion sizes. 11. Watch portions and choices when eating out documented in this encounterTrinity [facility]05-01-2023 History of Present illness Narrative* Sun Beal RD - 02/25/2023 1:36 PM EDT Nutrition Therapy Initial Assessment Nutrition Diagnosis: Altered nutrition-related lab values, related to, endocrine dysfunction, as evidenced by HgA1c 9.5 . RECOMMENDED MALNUTRITION DIAGNOSIS: NO MALNUTRITION IDENTIFIED NUTRITION CARE PLAN Nutrition Intervention 02/25/2023: modify type and amount of food or beverage Add in regular exercise, plan to walk 30 min most days 1. Follow a consistent carbohydrate controlled diet 2. Consistent carbohydrate intake of 1-2 carbs per meal or 15 -30 grams include lean protein in each meal. 3 Consume whole grains (whole wheat, oatmeal, bran flakes, popcorn); look for bagel thins and include protein in meal 4 Consume fresh or frozen fruits and vegetables; limit fruit to one fruit serving per eating event. 5 Use lean meats (poultry, fish, lean beef or pork). 6 Use calorie-free or sugar-free beverages, no juice 7 Use healthy fats: Hermann oil, canola oil, walnuts, ground flaxseed or flaxseed oil, almonds, sunflower/pumpkin seeds, butter spray, margarine with no trans fatty acids, cooking spray. 8 Keep a food journal week to monitor food choices and diet plan adherence. 9 Increase physical activity - Minimum of 30 minutes per day for 5-6 times per week. 10. Weigh and measure your serving sizes until you are comfortable with visibly estimating accurateportion sizes. 11. Watch portions and choices when eating out Nutrition Monitoring & Evaluation: blood sugars in target range Need for Follow up: 4-6 weeks Patient presents for initial MNT as relates to diabetes, less than adequate control. Has had DM forabout two years. STates hates needles and will not check blood sugars. Per recall and discussion likely excess carb in diet. Beverages appropriate . Likes to walk and walks to stores. No formal exercise but agrees to start. . Patient's symptoms are: elevated blood sugars Diet History: Breakfast - 8:30--coffee splash milk, and bagel medium with cheese; bowl oatmeal Snack -popcorn Lunch - 3-pizza roll, chicken noodle soup, melon, water Snack - may have popcorn Dinner - 7- crackers with pnb Snack - no Beverages - water, coffee Alcohol- no Vitamins/Supplements - MVI, May go out for Serbian Plain salads and veggies Occ beans, potatoes, rice. Snacks on pop corn throughout day Fruits often Activity: Activities of Daily Living: Active 50% of the day. 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 Resting Metabolic Rate: 1130 Malnutrition Screening Significant unintentional weight loss? No Eating less than 75% of usual intake for more than 2 weeks? No Potential Signs of Inflammation: no identifiable sources Education Materials Provided: Healthy You - Planning Healthy Meals (blue cover) READINESS TO LEARN Cognitive ability: Alert and oriented Motivation to learn: Interested Family support: Unable to assess - Family not present Instruction provided to: Patient Patient learns best by: Individual Instruction Factors affecting learning: None Physical limitations affecting learning: None Referred/Supervised by: Michelle/Ирина GELLER Billing Type: Initial Assess/15 min 2 units SIGNATURE: Sun [address] RD PATIENT NAME: Telma Tineo DATE: February 25, 2023 TIME: 1:45 PM documented in this encounterTr[facility]25-[facility]23 Miscellaneous Notes* Telephone Encounter - Fernanda Macario RN - 02/19/2023 3:09 PM EDT Patient's son Timothy returned call and given provider's message below. Fernanda Macario RN * Telephone Encounter - Bobo Adams LPN - 02/19/2023 2:52 PM EDT Message left asking pt to contact the office for results. Bobo Adams LPN * Telephone Encounter - Danielle Rodriguez RN - 02/14/2023 2:34 PM EDT Left message for patient to call office. Danielle Rodriguez RN * Telephone Encounter - Sadia Ramsey APRN.CNP - 02/14/2023 2:20 PM EDT Please let me the patient know that her CT scan is normal. Continue to use the estrogen cream and follow-up if bleeding is still occurring after 1 month of using the vaginal cream. Sadia Ramsey APRN.CNP documented in this encounterTr[facility]04-21-2023 History of Present illness Narrative* Emma Mcnally, OD - 02/15/2023 4:27 PM EDT 1. Type 2 diabetes mellitus without complication, without long-term current use of insulin (HCC) Risk of diabetic changes and vision loss can be minimized by tight control of blood sugar, blood pressure, and cholesterol levels. 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 Encouraged patient to call the office immediately with any changes to vision or visual concerns. Advised to not wait until the next scheduled exam. 2. Pseudophakia of both eyes 3. Presbyopia Doing well with readers Monitor yearly or sooner as needed Emma Mcnally, OD February 15, 2023 4:27 PM documented in this encounterTr[facility]04-19-2023 History of Present illness Narrative* Bobo Parham RT(R) - 02/13/2023 11:20 AM EDT Radiology Service Progress Note DATE OF SERVICE: February 13, 2023 TIME: 1:54 PM PATIENT IDENTITY VERIFICATION COMPLETED USING TWO (2) STANDARD IDENTIFIERS: Name and Date of confirmed by patient verbally. FALL SCREENING: Has the patient had 2 falls in the last year or 1 fall with injury or currently using an Ambulatory Assistive Device (Walker, Cane, Wheelchair, Crutches, etc.)? No PATIENT GENDER DATA: Female. status: : No status: NO. PATIENT RELEVANT IMPLANT DATA REVIEWED: Yes ALLERGIES: Reviewed and unchanged CONTRAST ALLERGY: NO. EXAM: CT -CONTRAST INDUCED NEPHROPATHY RISK FACTORS: Patient age > 60 years CREATININE: Creatinine Date Value Ref Range Status 01/10/2023 0.64 0.58 - 0.96 mg/dL Final 08/31/2022 0.77 0.58 - 0.96 mg/dL Final 09/25/2021 0.78 0.58 - 0.96 mg/dL Final Estimated Glomerular Filtration Rate Date Value Ref Range Status 01/10/2023 88 >=60 mL/min/1.73m Final Comment: Estimated Glomerular Filtration Rate (eGFR) is calculated using the 2020 CKD-EPI creatinine equation. This equation utilizes serum creatinine, sex, and age as parameters. The creatinine assay has traceable calibration to isotope dilution- mass spectrometry. Refer to KDIGO guidelines for clinical interpretation. In patients with unstable renal function, e.g. those with acute kidney injury, the eGFRmay not accurately reflect actual GFR. eGFR- Date Value Ref Range Status 09/25/2021 >60 Final P.O.C.T. RESULTS: POC done: Yes, See Lab Tab February 13, 2023 TREATMENT: N/A PERIPHERAL IV DATA: Ambulatory: A peripheral IV was started in the Left antecubital site with a Angio cath: 22 gauge. RADIOLOGY DEPARTMENT: CT; Exam(s) Completed: Pelvis SIGNATURE: RT Meghan(R) PATIENT NAME: Telma Tineo DATE: February 13, 2023 TIME: 1:54 PM documented in this encounterTr[facility]04-14-2023 History of Present illness Narrative* Sadia Ramsey APRN.POLE INCISOR OPERATOR - 02/08/2023 3:41 PM EDT Telma Tineo is a 82 year old female who presents for problem visit bleeding with wiping for 2 month(s). Daughter present for visit HPI: she has been having the bleeding just when she wipes. Also c/o burning at times. Having pain in the pelvic region the comes and goes. Does have some trouble emptying the bladder denies any urine leakage. OB History T0 L6 SAB0 IAB0 Ectopic0 Multiple0 Live Births0 Gsa Coordinator History LMP: Hysterectomy Age at Menarche: Age at First : Age at Menopause: Gsa Coordinator History Comments: Sexual Activity: Not Currently; No partner data on record Contraception: No contraception data on record PAST MEDICAL HISTORY Diagnosis Date Allergies Lundberg's palsy Bronchiectasis (HCC) Gastroesophageal reflux disease without esophagitis History of CVA (cerebrovascular accident) Mild intermittent asthma without complication Primary hypertension Type 2 diabetes mellitus without complication, without long-term current use of insulin (HCC) PAST SURGICAL HISTORY Procedure Laterality Date APPENDECTOMY CATARACT EXTRACTION HX COLONOSCOPY SCREENING 10/04/2022 no specimens collected, No further screening colonoscopies required HEMORRHOIDECTOMY HYSTERECTOMY HX without bso PAST SURGICAL HISTORY OF ? repair of cystocele RHINOPLASTY N/A TONSILLECTOMY & ADENOIDECTOMY <AGE 12 FAMILY HISTORY Problem Relation Age of Onset Pancreatic Cancer Mother Lung Cancer Father Heart disease Son Social History Tobacco Use Smoking status: Former Smokeless tobacco: Never Tobacco comments: Light smoker for 7 years in early adulthood Vaping Use Vaping Use: Never used Substance Use Topics Alcohol use: Not Currently Drug use: Never Current Outpatient Medications Medication Sig metFORMIN (GLUCOPHAGE) 500 mg tablet Take 1 tablet by mouth three times daily before meals. fluticasone-vilanterol (BREO ELLIPTA) 100-25 mcg/dose inhaler Inhale 1 Inhalation as instructed once daily. losartan (COZAAR) 100 mg tablet Take 1 tablet by mouth once daily. apixaban (ELIQUIS) 2.5 mg tab(s) Take 1 tablet by mouth twice daily. atorvastatin (LIPITOR) 20 mg tablet Take 1 tablet by mouth once daily. pantoprazole DR (PROTONIX) 40 mg tablet Take 1 tablet by mouth once daily. metoprolol tartrate, short acting, (LOPRESSOR) 50 mg tablet Take 1 tablet by mouth twice daily. Methylsulfonylmethane (MSM) 1,000 mg cap Take 1 capsule by mouth once daily. No current facility-administered medications for this visit. Allergies As of Date: 02/08/2023 Allergen Noted Reaction PENICILLINS 09/14/2021 Anaphylaxis TETRACYCLINE 09/14/2021 Rash Fully Assessed 02/08/2023 REVIEW OF SYSTEMS SEE HPI. Expanded ROS: N/A Allergies and current medication updated:Yes EXAM: BP 120/80 Wt 166 lb 12.8 oz (75.7kg) GENERAL: pleasant, female in no apparent distress HEENT: Normocephalic, atraumatic, and no lesions CHEST: Normal inspiratory effort ABDOMEN: soft, non-tender, and no masses PELVIC: external genitalia normal, normal Bartholin's glands, urethra, [place]'s glands, no vulvar lesions, physiologic discharge present, normal appearing perineal body and perianal region, cervix surgically absent BIMANUAL: no adnexal masses, non-tender, and uterus surgically absent NEURO: alert and oriented x3,exam grossly non-focal EXTREMITIES: normal ASSESSMENT/PLAN: 1. Vaginal bleeding - ICD9: 623.8, ICD10: N93.9 (primary diagnosis) - Vaginal estrogen cream ordered - UA trace of blood 2. Pelvic and perineal pain - ICD9: 625.9, ICD10: R10.2 - CT PELVIS W IVCON - will call with results 3. History of uterine cancer - ICD9: V10.42, ICD10: Z85.42 Sadia Ramsey APRN.CNP Medical Decision Making: Problems: Moderate: New problem with uncertain prognosis Data: Unique test(s) ordered: 2 Risk: Low: Low risk from testing/treatment Moderate: Drug management Medical Decision Making Level: 4 - Moderate documented in this encounterTr[facility]03-31-2023 History of Present illness Narrative* Henok Martinez MD - 01/25/2023 1:38 PM EDT Patient presents with: Follow Up HPI: Patient presents today for office visit for follow up. Still coughing. Improving but still persistent. Followed up with Pulmonary. Per Dr. Medley's OV from11/16/22 it's noted that cough most likely due to asthma. Other risk factors include her known allergies with possible postnasal drip and acid reflux disease but current symptomatology does not suggest active disease. Started on Breo Ellipta. Findings concerning for possible bronchiectasis. History of recurrent and severe pneumonia in the past places her at risk for development of bronchiectasis. CT done. Shows bibasilar minimal bronchiectasis. Since starting her Breo Ellipta, cough has improved. Less sputum production. No chest pain, some shortness of breath with exertion, No wheezing. HTN: Does not monitor BP No headaches or dizziness Some edema to B/L feet. In the process of moving and she's been up walking around a lot more. No syncope No new chest pain or shortness of breath Sugars are up. She is eating everything and anything. She is extremely hesitant to change any medications. We discussed risks of uncontrolled dm Component Latest Ref Rng & Units 01/10/2023 Protein, Total 6.3 - 8.0 g/dL 7.3 Albumin 3.9 - 4.9 g/dL 4.4 Calcium 8.5 - 10.2 mg/dL 9.8 Bilirubin, Total 0.2 - 1.3 mg/dL 0.3 Alkaline Phosphatase 34 - 123 U/L 102 AST 13 - 35 U/L 27 ALT 7 - 38 U/L 41 (H) Glucose 74 - 99 mg/dL 184 (H) BUN 7 - 21 mg/dL 11 Creatinine 0.58 - 0.96 mg/dL 0.64 Sodium 136 - 144 mmol/L 140 Potassium 3.7 - 5.1 mmol/L 4.1 Chloride 97 - 105 mmol/L 106 (H) CO2 22 - 30 mmol/L 24 Anion Gap 9 - 18 mmol/L 10 eGFR >=60 mL/min/1.73m 88 Cholesterol, Total <200 mg/dL 127 Triglyceride <150 mg/dL 103 HDL Cholesterol >39 mg/dL 50 Non HDL Cholesterol <130 mg/dL 77 Fasting Time hrs 12 VLDL Cholesterol <30 mg/dL 21 TC:HDL Ratio <5.10 2.54 LDL Cholesterol <100 mg/dL 56 LDL:HDL Ratio <2.54 1.12 Hemoglobin A1C 4.3 - 5.6 % 9.5 (H) Estimated Average Glucose mg/dL 226 MEDICATIONS: Current Outpatient Medications Medication Sig fluticasone-vilanterol (BREO ELLIPTA) 100-25 mcg/dose inhaler Inhale 1 Inhalation as instructed once daily. losartan (COZAAR) 100 mg tablet Take 1 tablet by mouth once daily. apixaban (ELIQUIS) 2.5 mg tab(s) Take 1 tablet by mouth twice daily. atorvastatin (LIPITOR) 20 mg tablet Take 1 tablet by mouth once daily. metFORMIN (GLUCOPHAGE) 500 mg tablet Take 1 tablet by mouth twice daily with meals. pantoprazole DR (PROTONIX) 40 mg tablet Take 1 tablet by mouth once daily. metoprolol tartrate, short acting, (LOPRESSOR) 50 mg tablet Take 1 tablet by mouth twice daily. Methylsulfonylmethane (MSM) 1,000 mg cap Take 1 capsule by mouth once daily. No current facility-administered medications for this visit. ALLERGIES: ALLERGIES Allergen Reactions Penicillins Anaphylaxis Tetracycline Rash PAST MEDICAL HISTORY Diagnosis Date Allergies Lundberg's palsy Bronchiectasis (HCC) Gastroesophageal reflux disease without esophagitis History of CVA (cerebrovascular accident) Mild intermittent asthma without complication Primary hypertension Type 2 diabetes mellitus without complication, without long-term current use of insulin (HCC) PAST SURGICAL HISTORY Procedure Laterality Date APPENDECTOMY CATARACT EXTRACTION HX COLONOSCOPY SCREENING 10/04/2022 no specimens collected, No further screening colonoscopies required HEMORRHOIDECTOMY HYSTERECTOMY HX without bso PAST SURGICAL HISTORY OF ? repair of cystocele RHINOPLASTY N/A TONSILLECTOMY & ADENOIDECTOMY <AGE 12 FAMILY HISTORY Problem Relation Age of Onset Pancreatic Cancer Mother Lung Cancer Father Heart disease Son Social History Tobacco Use Smoking status: Former Smokeless tobacco: Never Tobacco comments: Light smoker for 7 years in early adulthood Vaping Use Vaping Use: Never used Substance Use Topics Alcohol use: Not Currently Drug use: Never Reviewed current medications, allergies, past medical history, surgical history, family history andsocial history today. REVIEW OF SYSTEMS All other reviewed and negative other than HPI. VITALS: BP 146/70 Pulse 82 Ht 149.9 cm (4' 11) Wt 76.7 kg (169 lb 3.2 oz) SpO2 97% BMI 34.17 kg/m Last 4 Encounter Wt Readings: Date: Wt: 11/16/2022 75.8 kg (167 lb) 10/26/2022 77.1 kg (170 lb) 10/12/2022 75.3 kg (166 lb) 10/04/2022 76.2 kg (168 lb) PHYSICAL EXAMINATION: General appearance: Well appearing, alert, in no acute distress, well-hydrated, well nourished. Skin: Skin color, texture, turgor normal, no suspicious rashes or lesions Head: Normocephalic, no masses, lesions, tenderness or abnormalities Lungs: Lungs clear to auscultation. No wheezing, rhonchi, rales Heart: RRR without murmur, gallop, or rubs. No ectopy Abdomen: Normal abdominal exam, Abdomen soft, non-tender. Bowel sounds normal. No masses, organomegaly Extremities: No deformities, edema, skin discoloration, clubbing or cyanosis. Good capillary refill. Musculoskeletal: No joint swelling, deformity, or tenderness ASSESSMENT/PLAN: 1. Primary hypertension - ICD9: 401.9, ICD10: I10 (primary diagnosis) - she is reluctant to increase meds. Understands risks 2. Type 2 diabetes mellitus without complication, without long-term current use of insulin (HCC) - ICD9: 250.00, ICD10: E11.9 - Uncontrolled - willing to increase metformin after much discussion. See optho and nutrition. - METFORMIN 500 MG TABLET - HGB A1C - CONSULT TO NUTRITION THERAPY - CONSULT TO OPHTHALMOLOGY 3. 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 History of uterine cancer - ICD9: V10.42, ICD10: Z85.42 - CONSULT TO GYNECOLOGY 5. History of CVA (cerebrovascular accident) - ICD9: V12.54, ICD10: Z86.73 6. Gastroesophageal reflux disease without esophagitis - ICD9: 530.81, ICD10: K21.9 7. Bronchiectasis without complication (HCC) - ICD9: 494.0, ICD10: J47.9 Per pulmonary. 8. Mild intermittent asthma without complication - ICD9: 493.90, ICD10: J45.20 Henok Martinez documented in this encounterTr[facility]01-27-2023 Miscellaneous Notes* Telephone Encounter - Nancy Mccain Ma - 11/23/2022 2:46 PM EST Left detailed message on Nancy Adán Santos * Telephone Encounter - Henok Martinez MD - 11/23/2022 2:28 PM EST Bp did come down to normal on a number of the bp's. Lets continue current meds * Telephone Encounter - Cassy Evans LPN - 11/23/2022 1:47 PM EST Manual Readin/86 Pulse: 72 BP Sebastien average: 141/76 P: 76 Repeat BP Check: 136/73 P70 #1 136/73 P70 #2 143/80 P80 #3 146/76 P79 #4 146/75 P77 #5 136/80 P80 #6 Reason for blood pressure check - Last BP elevated and Medication adjustment Patient is: Taking medication as prescribed Yes Took medication today Yes If no, date medication last taken N/A Experiencing side effects No BP was elevated at last appt 10/26/22. Losartan was increased to 100mg daily. Tolerating medicationchange well. Denies any chest pain, shortness of breath, dizziness, or headaches. Drinks decaf. Past personal history of tobacco use; no current exposure. Alert and oriented. Pt has been identified by name and birthdate: Yes Allergies reviewed: Yes Latex allergy: no. Medication - prescribed and OTC reviewed and updated: Yes Do you need any prescription refills prior to your next visit: No Health Maintenance: Reviewed and not up to date and provider notified Patient advised that she would be contacted after review by PCP. Cassy Evans LPN documented in this encounterTr[facility]01-27-2023 History of Present illness Narrative* Cassy Evans LPN - 11/23/2022 1:46 PM EST Manual Readin/86 Pulse: 72 BP Sebastien average: 141/76 P: 76 Repeat BP Check: 136/73 P70 #1 136/73 P70 #2 143/80 P80 #3 146/76 P79 #4 146/75 P77 #5 136/80 P80 #6 Reason for blood pressure check - Last BP elevated and Medication adjustment Patient is: Taking medication as prescribed Yes Took medication today Yes If no, date medication last taken N/A Experiencing side effects No BP was elevated at last appt 10/26/22. Losartan was increased to 100mg daily. Tolerating medicationchange well. Denies any chest pain, shortness of breath, dizziness, or headaches. Drinks decaf. Past personal history of tobacco use; no current exposure. Alert and oriented. Pt has been identified by name and birthdate: Yes Allergies reviewed: Yes Latex allergy: no. Medication - prescribed and OTC reviewed and updated: Yes Do you need any prescription refills prior to your next visit: No Health Maintenance: Reviewed and not up to date and provider notified Patient advised that she would be contacted after review by PCP. Cassy Evans LPN documented in this encounterTr[facility]01-26-2023 History of Present illness Narrative* Nancy Medley MD - 11/22/2022 8:00 AM EST . Respiratory [place] Note Patient name: Telma Tineo PCP: Henok Martinez MD CC: Follow-up chest CT HPI: Telma Tineo 82 year old obese female former minimal smoker with PMH significant for stroke, asthma, allergies, HTN, DM, GERD recently seen for evaluation of cough. She has a longstanding history of asthma dating back to childhood, intolerant of albuterol and numerous other inhalers. She had pr eviously been on Breo Ellipta but had been out of her inhaler for approximately a year. Since stopping her inhaled therapy she had increased shortness of breath and cough with copious amounts of thick sputum. Updated pulmonary function test showed small airways obstruction that improved with bronchodilators. And chest x-ray was concerning for possible bronchiectasis. Restarted Breo Ellipta and ord ered chest CT. She presents today for follow-up after her chest CT which shows bibasilar minimal bronchiectasis. Since starting her Breo Ellipta, cough has improved. Less sputum production. No chest pain, shortness of breath, wheezing. DATA: SERVICE DATE: 11/16/2022 SERVICE TIME: 1:45 PM Oral Exhaled Nitric Oxide measurement: 13.0 (ppb) Normal: Adult 5-20 ppb, pediatric (<12 years) 5-15 ppb Imaging / Diagnostic Studies: DATE OF EXAM: Nov 20 2022 2:16PM [facility] [id number] - CT CHEST WO IVCON / CLINICAL HISTORY: Chronic cough. Bronchiectasis Comparison: Chest x-ray of 10/26/2022 RESULT: Limitations: None. Lines, tubes, and devices: None. Lung parenchyma and airways: Minimal linear indeterminate density at the left lung base likely represents atelectasis or fibrosis. Mild bronchiectasis at the lung bases. No consolidation. No suspicious pulmonary nodule. The central airways are patent. Pleural space: No pleural effusion. No pleural thickening. Lower neck, lymph nodes, and mediastinum: The imaged thyroid gland is normal. Borderline mediastinal lymph nodes measure at or near 1 cm. Borderline left axillary nodes measuring at or near 1 cm. No lymphadenopathy in the supraclavicular, axillary, mediastinal, or hilar regions. Heart, pericardium, and thoracic vessels: The thoracic aorta and main pulmonary artery are normal in caliber. The cardiac chambers are normal in size. No coronary artery atherosclerotic calcifications are noted, although the study is not optimized for coronary assessment. No pericardial effusion orthickening. Bones and soft tissues: No destructive bone lesion. Chest wall is unremarkable. Degenerative changes throughout the spine Upper abdomen: No abnormality in the imaged upper abdomen. IMPRESSION: Mild bronchiectasis at the lung bases. Borderline mediastinal and axillary nodes measure at or near 1 cm. No suspicious mass or definite lymphadenopathy within the chest. I personally reviewed the images as well as with the patient and agree with the above assessment PAST MEDICAL HISTORY Diagnosis Date Allergies Lundberg's palsy Gastroesophageal reflux disease without esophagitis History of CVA (cerebrovascular accident) Mild intermittent asthma without complication Primary hypertension Type 2 diabetes mellitus without complication, without long-term current use of insulin ([facility]) ALLERGIES Allergen Reactions Penicillins Anaphylaxis Tetracycline Rash fluticasone-vilanterol (BREO ELLIPTA) 100-25 mcg/dose inhaler Inhale 1 Inhalation as instructed once daily. losartan (COZAAR) 100 mg tablet Take 1 tablet by mouth once daily. apixaban (ELIQUIS) 2.5 mg tab(s) Take 1 tablet by mouth twice daily. atorvastatin (LIPITOR) 20 mg tablet Take 1 tablet by mouth once daily. metFORMIN (GLUCOPHAGE) 500 mg tablet Take 1 tablet by mouth twice daily with meals. pantoprazole DR (PROTONIX) 40 mg tablet Take 1 tablet by mouth once daily. metoprolol tartrate, short acting, (LOPRESSOR) 50 mg tablet Take 1 tablet by mouth twice daily. Methylsulfonylmethane (MSM) 1,000 mg cap Take 1 capsule by mouth once daily. Social History Tobacco Use Smoking status: Former Smokeless tobacco: Never Tobacco comments: Light smoker for 7 years in early adulthood Vaping Use Vaping Use: Never used Substance Use Topics Alcohol use: Not Currently Drug use: Never PMH, Social history, family history and surgical history reviewed and updated in EMR REVIEW OF SYSTEMS: CONSTITUTIONAL: No fevers, chills, nightsweats, unintended weight loss HEENT: Denies frequent or severe heaches, nasal congestion/sinus symptoms, problematic allergy problems. EYES: No diplopia or blurry vision. CARDIOVASCULAR: No chest pain, dyspnea, palpitations, orthopnea, PND, ankle edema. PULM: No dyspnea, unexplained cough. GI: No dysphagia/odynophagia, problematic reflux, constipation, diarrhea, changes in stool habits, hematochezia, melena. : No new urinary complaints, including dysuria, gross hematuria or pyuria. NEURO: No new balance problems, peripheral weakness/paresthesias or numbness of concern. MUSC-SKEL: No new joint pain, swelling, or erythema. PSY: No concerns regarding depression, anxiety or panic. INTEGUMENTARY: No new skin changes (rash, new or changing mole, new growth) PHYSICAL EXAMINATION: BP 138/80, pulse 111, RR 15, SPO2 97% General Appearance: Elderly female, NAD Skin: Skin color, texture, turgor normal, no suspicious rashes or lesions. Head: Normocephalic, no masses, lesions, tenderness or abnormalities. Eyes: Arcus senilis Oropharynx: No oral lesions or thrush Neck: No JVD or masses or adenopathy Lungs: Not labored, normal to percussion, no wheezes or crackles Heart: Intermittently irregular rhythm, no murmurs Extremities: No edema clubbing Assessment/Plan: 1. Bronchiectasis -May need addition of Acapella device if sputum production not improved with Breo Ellipta -Patient instructed to contact office if change in the character or amount of sputum production 2. Mild persistent asthma -Continue Breo Ellipta with as needed albuterol -RTC 6 months or sooner with problems Nancy Medley MD [facility] [place] [facility] History of Present illness Narrative* Bobo Parham RT(R) - 11/20/2022 1:40 PM EST Radiology Service Progress Note PATIENT NAME: Telma Tineo DATE OF SERVICE: November 20, 2022 TIME: 3:59 PM PATIENT IDENTITY VERIFICATION COMPLETED USING TWO (2) IDENTIFIERS: Name and Date of confirmedby patient verbally. FALL SCREENING: Has the patient had 2 falls in the last year or 1 fall with injury or currently using an Ambulatory Assistive Device (Walker, Cane, Wheelchair, Crutches, etc.)? No PATIENT GENDER DATA: Female. status: : No status: NO. PATIENT RELEVANT IMPLANT DATA REVIEWED: Yes RADIOLOGY DEPARTMENT: CT; Exam(s) Completed: Chest PERIPHERAL IV DATA: Not applicable SIGNED BY: RT Meghan(R) November 20, 2022 3:59 PM documented in this encounterTr[facility]01-20-2023 Procedure note* JOSÉ MIGUEL Russell - 11/16/2022 1:45 PM ESTAssociated Order(s): NITRIC OXIDE, EXHALED RESPIRATORY THERAPY ORAL EXHALED NITRIC OXIDE SERVICE DATE: 11/16/2022 SERVICE TIME: 1:45 PM Oral Exhaled Nitric Oxide measurement: 13.0 (ppb) Normal: Adult 5-20 ppb, pediatric (<12 years) 5-15 ppb High Normal / Increased: Adult 20-35 ppb, pediatric (<12 years) 15-25 ppb Moderately raised exhaled Nitric Oxide may indicate underlying inflammation, but note that: Cold and influenza can raise exhaled Nitric Oxide and some patients have higher baseline exhaled Nitric Oxide levels than others. High: Adult >35 ppb, pediatric (<12 years) >25 ppb Indicative of ongoing eosinophilic inflammation. Symptomatic patient likely to respond to steroids. Possible causes (if already on steroids): Poor compliance, recent allergen exposure, steroid dose inadequate, and steroid resistance. Note that not all patients with high exhaled nitric oxide levels display symptoms. Oral Exhaled Nitric Oxide measurement (Previous Encounters) Test Date Oral Exhaled Nitric Oxide (ppb) 11/16/2022 13.0 NAME: JOSÉ MIGUEL Russell PATIENT NAME: Telma Tineo DATE: November 16, 2022 TIME: 1:45 PM documented in this encounterTr[facility]01-20-[facility]23 History of Present illness Narrative* Nancy Medley MD - 11/16/2022 1:30 PM EST Images from the original note were not included. . [facility] [place] Note Patient name: Telma Tineo PCP: Henok Martinez MD Referring Physician: same Consultation requested by Dr. Martinez for an opinion regarding cough. My final recommendations will becommunicated back to the requesting physician by way of shared Medical record or letter to requesting physician via US mail. CC: cough HPI: Telma Tineo 82 year old obese female former minimal smoker with PMH significant for GERD, CVA, asthma, HTN, DM, allergies being referred for evaluation of cough. Has a longstanding history of allergies requiring immunotherapy in the past and history of childhood asthma. She does not use albuterol rescue inhaler stating that it causes her side effects that are intolerable. She has been on numerous inhalers in the past with preference for Breo Ellipta. Currently not on Breo Ellipta pending this evaluation today. She has been off her Breo Ellipta for approximately a year. Since stopping her inhaler, she has had increased shortness of breath and cough with copious amounts of clear sometimes thick mucus. No nocturnal cough or awakenings. No postprandial cough. History of GERD with symptoms well controlled on Protonix. No hemoptysis. No audible wheezing. Her past history is also notablefor pneumonia x3. Apparently severely ill as a teenager. She is 1 of 11 siblings, none with historyof asthma or allergies. DATA: PFT 09/2022: Review pulmonary function test show small airways obstruction with mild reduction in diffusing capacity Labs: Component Ref Range & Units 2 mo ago WBC 3.70 - 11.00 k/uL 8.65 RBC 3.90 - 5.20 m/uL 4.18 Hemoglobin 11.5 - 15.5 g/dL 12.2 Hematocrit 36.0 - 46.0 % 38.2 MCV 80.0 - 100.0 fL 91.4 MCH 26.0 - 34.0 pg 29.2 MCHC 30.5 - 36.0 g/dL 31.9 RDW-CV 11.5 - 15.0 % 13.0 Platelet Count 150 - 400 k/uL 240 MPV 9.0 - 12.7 fL 12.0 Neut% % 65.9 Abs Neut 1.45 - 7.50 k/uL 5.69 Lymph% % 23.1 Abs Lymph 1.00 - 4.00 k/uL 2.00 [place]% % 8.4 Abs [place] <0.87 k/uL 0.73 Eosin% % 2.0 Abs Eosin <0.46 k/uL 0.17 Baso% % 0.3 Abs Baso <0.11 k/uL 0.03 Immature Gran % % 0.3 Abs Immature Gran <0.10 k/uL 0.03 NRBC /100 WBC 0.0 Absolute nRBC <0.01 k/uL <0.01 Diff Type Auto Imaging / Diagnostic Studies: Component Ref Range & Units 2 mo ago WBC 3.70 - 11.00 k/uL 8.65 RBC 3.90 - 5.20 m/uL 4.18 Hemoglobin 11.5 - 15.5 g/dL 12.2 Hematocrit 36.0 - 46.0 % 38.2 MCV 80.0 - 100.0 fL 91.4 MCH 26.0 - 34.0 pg 29.2 MCHC 30.5 - 36.0 g/dL 31.9 RDW-CV 11.5 - 15.0 % 13.0 Platelet Count 150 - 400 k/uL 240 MPV 9.0 - 12.7 fL 12.0 Neut% % 65.9 Abs Neut 1.45 - 7.50 k/uL 5.69 Lymph% % 23.1 Abs Lymph 1.00 - 4.00 k/uL 2.00 [place]% % 8.4 Abs [place] <0.87 k/uL 0.73 Eosin% % 2.0 Abs Eosin <0.46 k/uL 0.17 Baso% % 0.3 Abs Baso <0.11 k/uL 0.03 Immature Gran % % 0.3 Abs Immature Gran <0.10 k/uL 0.03 NRBC /100 WBC 0.0 Absolute nRBC <0.01 k/uL <0.01 Diff Type Auto Imaging: DATE OF EXAM: Oct 26 2022 2:39PM WOX [id number] - XR CHEST 2V FRONTAL/LAT / PROCEDURE REASON: Cough, unspecified type CLINICAL HISTORY: Cough, unspecified type MQ: [id number] EXAM DATE/TIME: 10/26/2022 2:39 PM COMPARISON: No relevant prior studies available. RESULT: Lines, tubes, and devices: None. Lungs and pleura: Some linear and curvilinear densities in the RIGHT lung base and RIGHT perihilar region. These may represent scarring or atelectasis No lung mass. No pleural effusion. No pneumothorax. Cardiomediastinal silhouette: Normal cardiomediastinal silhouette. Bones and soft tissues: Unremarkable. IMPRESSION: Findings as discussed under Results portion of report. . 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 losartan (COZAAR) 100 mg tablet Take 1 tablet by mouth once daily. apixaban (ELIQUIS) 2.5 mg tab(s) Take 1 tablet by mouth twice daily. atorvastatin (LIPITOR) 20 mg tablet Take 1 tablet by mouth once daily. metFORMIN (GLUCOPHAGE) 500 mg tablet Take 1 tablet by mouth twice daily with meals. pantoprazole DR (PROTONIX) 40 mg tablet Take 1 tablet by mouth once daily. metoprolol tartrate, short acting, (LOPRESSOR) 50 mg tablet Take 1 tablet by mouth twice daily. Methylsulfonylmethane (MSM) 1,000 mg cap Take 1 capsule by mouth once daily. Social History Tobacco Use Smoking status: Former Smokeless tobacco: Never Tobacco comments: Light smoker for 7 years in early adulthood Vaping Use Vaping Use: Never used Substance Use Topics Alcohol use: Not Currently Drug use: Never No past occupational exposure history. No pets or animal exposures FAMILY HISTORY Problem Relation Age of Onset Pancreatic Cancer Mother Lung Cancer Father Heart disease Son PAST SURGICAL HISTORY Procedure Laterality Date APPENDECTOMY CATARACT EXTRACTION HX COLONOSCOPY SCREENING 10/04/2022 no specimens collected, No further screening colonoscopies required HEMORRHOIDECTOMY HYSTERECTOMY HX without bso PAST SURGICAL HISTORY OF ? repair of cystocele RHINOPLASTY N/A TONSILLECTOMY & ADENOIDECTOMY <AGE 12 PMH, Social history, family history and surgical history reviewed and updated in EMR REVIEW OF SYSTEMS: CONSTITUTIONAL: No fevers, chills, nightsweats, unintended weight loss, fatigue HEENT: Denies current nasal congestion/sinus symptoms, problematic allergy problems, postnasal drip EYES: No diplopia or blurry vision, itchy eyes CARDIOVASCULAR: No chest pain, palpitations, orthopnea, PND, edema. PULM: See HPI GI: No dysphagia/odynophagia, problematic reflux. : No urinary complaints, including dysuria, gross hematuria or pyuria. NEURO: No balance problems, peripheral weakness/paresthesias or numbness of concern. MUSC-SKEL: No joint pain, swelling, or erythema. PSY: No concerns regarding depression, anxiety . INTEGUMENTARY: No new skin changes, rashes or eczema PHYSICAL EXAMINATION: BP 130/82, pulse 64, RR 15, SPO2 100% on room air General Appearance: Age-appropriate female, NAD Skin: Skin color, texture, turgor normal, no suspicious rashes or lesions. Head: Normocephalic, no masses, lesions, tenderness or abnormalities. Eyes: Arcus senilis, sclera normal Oropharynx: No oral lesions, no thrush, no posterior pharyngeal cobblestoning Neck: No JVD, no masses, no thyromegaly Lungs: Not labored, normal to percussion, no wheezes or crackles Heart: Regular rate and rhythm, no murmur Extremities: No edema, no clubbing Musculoskeletal: No joint deformities or effusions Neurologic: Alert and oriented, no focal findings Lymph Nodes: No cervical lymphadenopathy and No supraclavicular lymphadenopathy. Assessment/Plan: 1. Chronic cough -Cough most likely due to asthma. Other risk factors include her known allergies with possible postnasal drip and acid reflux disease but current symptomatology does not suggest active disease -Restart Breo Ellipta 2. Abnormal chest x-ray -Findings concerning for possible bronchiectasis. History of recurrent and severe pneumonia in the past places her at risk for development of bronchiectasis -Chest CT for further delineation 3. Mild persistent asthma, uncomplicated -See #1 Nancy Medley MD [facility] [place] documented [facility]Tr[facility]-20-[facility]23 History of Present illness Narrative* JOSÉ MIGUEL Russell - 11/16/2022 1:11 PM EST PULM FUNCTION SMARTBLOCK: Provider: Nancy Medley MD Assisting Tech: JOSÉ MIGUEL Russell Exhaled Nitric Oxide: 1 documented in this encounterTr[facility]01-20-2023 Nurse Note* Gloria Cordoba LPN - 11/16/2022 1:08 PM EST Intake information documented in the prior visit with JOSÉ MIGUEL Russell today. documented in this encounterTr[facility]12-30-2022 History of Present illness Narrative* Henok Martinez MD - 10/26/2022 1:39 PM EST Patient presents with: Results: Discuss results of PFT's HPI: Patient presents today for office visit for follow up. Her cough is improving but still persistent. Reports occasionally has to take deep breaths. No chest pain. No side effects from the meds. See [previous ov: Adding losartan for blood pressure. States that still some cough but has drainage. Cough is much better. Did see surgery for diarrhea and is scheduled for colonoscopy. Tolerating metformin. Diarrhea still occurred when off of meds. A1c is acceptable for her age. Her cholesterol is up. Is not taking her lipitor. She has been on 40 mg before and stopped it due to having a vaginal infection. She has tolerated 20 mg. Explained it is unlikely lipitor was the cuprit. She is not taking her amlodipine as well. See previouv pft: IMPRESSION: Spirometry is normal. There was not a significant bronchodilator response. The TLC, RV and RV/TLC are normal. The presence of a reduced lung diffusing capacity - that does not normalize when measured independent of alveolar volume (kCO) suggests a parenchymal or pulmonary vascular disorder. MEDICATIONS: Current Outpatient Medications Medication Sig apixaban (ELIQUIS) 2.5 mg tab(s) Take 1 tablet by mouth twice daily. atorvastatin (LIPITOR) 20 mg tablet Take 1 tablet by mouth once daily. losartan (COZAAR) 50 mg tablet Take 1 tablet by mouth once daily. metFORMIN (GLUCOPHAGE) 500 mg tablet Take 1 tablet by mouth twice daily with meals. pantoprazole DR (PROTONIX) 40 mg tablet Take 1 tablet by mouth once daily. metoprolol tartrate, short acting, (LOPRESSOR) 50 mg tablet Take 1 tablet by mouth twice daily. Methylsulfonylmethane (MSM) 1,000 mg cap Take 1 capsule by mouth once daily. No current facility-administered medications for this visit. ALLERGIES: ALLERGIES Allergen Reactions Penicillins Anaphylaxis Tetracycline Rash PAST MEDICAL HISTORY Diagnosis Date Lundberg's palsy Gastroesophageal reflux disease without esophagitis History of CVA (cerebrovascular accident) Mild intermittent asthma without complication Primary hypertension Type 2 diabetes mellitus without complication, without long-term current use of insulin (HCC) PAST SURGICAL HISTORY Procedure Laterality Date APPENDECTOMY CATARACT EXTRACTION HX COLONOSCOPY SCREENING 10/04/2022 no specimens collected, No further screening colonoscopies required HEMORRHOIDECTOMY HYSTERECTOMY HX without bso PAST SURGICAL HISTORY OF ? repair of cystocele RHINOPLASTY N/A FAMILY HISTORY Problem Relation Age of Onset Pancreatic Cancer Mother Lung Cancer Father Heart disease Son Social History Tobacco Use Smoking status: Former Smokeless tobacco: Never Vaping Use Vaping Use: Never used Substance Use Topics Alcohol use: Not Currently Drug use: Never Reviewed current medications, allergies, past medical history, surgical history, family history andsocial history today. REVIEW OF SYSTEMS All other reviewed and negative other than HPI. VITALS: BP 150/80 Pulse 92 Wt 77.1 kg (170 lb) SpO2 98% BMI 34.34 kg/m Last 4 Encounter Wt Readings: Date: Wt: 10/26/2022 77.1 kg (170 lb) 10/12/2022 75.3 kg (166 lb) 10/04/2022 76.2 kg (168 lb) 10/01/2022 76.7 kg (169 lb) PHYSICAL EXAMINATION: General appearance: Well appearing, alert, in no acute distress, well-hydrated, well nourished. Skin: Skin color, texture, turgor normal, no suspicious rashes or lesions Head: Normocephalic, no masses, lesions, tenderness or abnormalities Lungs: Lungs clear to auscultation. No wheezing, rhonchi, rales Heart: RRR without murmur, gallop, or rubs. No ectopy Abdomen: Normal abdominal exam, Abdomen soft, non-tender. Bowel sounds normal. No masses, organomegaly Extremities: No deformities, edema, skin discoloration, clubbing or cyanosis. Good capillary refill. ASSESSMENT/PLAN: 1. Cough, unspecified type - ICD9: 786.2, ICD10: R05.9 (primary diagnosis) - is improving but persistent. Given pfts, check xray and see pulmonary - XR CHEST 2V FRONTAL/LAT - CONSULT TO PULM/CRITICAL CARE 2. Primary hypertension - ICD9: 401.9, ICD10: I10 - improving. - increasing losartan and recheck bp in one month - LOSARTAN 100 MG TABLET Henok Martinez MD documented in this encounterTr[facility]12-27-2022 Miscellaneous Notes* Telephone Encounter - [facility] [place] - 10/23/2022 3:56 PM EST Patient has been identified by name and date of : Yes Requested Prescriptions Pending Prescriptions Disp Refills apixaban (ELIQUIS) 2.5 mg tab(s) 60 tablet 3 Sig: Take 1 tablet by mouth twice daily. RX INSTRUCTIONS: Patient aware RX will be sent to pharmacy. No need to notify patient. [place] [facility] documented in this encounterTrinity [facility]12-19-2022 Miscellaneous Notes* Telephone Encounter - Daina Ríos RN - 10/15/2022 3:44 PM EST Pts son called and is notified of providers results and instructions. He voices understanding, scheduled for f/u appointment on October 26, 2022. Daina Ríos RN * Telephone Encounter - Henok Martinez MD - 10/15/2022 3:02 PM EST Pfts do not show definite asthma. Do show some changes that suggest there could be issues with lungtissue etc. Follow up to go over the results in next few weeks. Call if breathing worsens. documented in this encounterTrinity [facility]12-16-2022 History of Present illness Narrative* JOSÉ MIGUEL Russell - 10/12/2022 2:32 PM EST PULM FUNCTION SMARTBLOCK: Provider: Henok Martinez MD Assisting Tech: JOSÉ MIGUEL Russell Spirometry w/BD: 1 DLCO: 1 LV - Box: 1 documented in this encounterTrinity [facility]12-15-2022 Miscellaneous Notes* Telephone Encounter - Alison Matos RN - 10/11/2022 2:39 PM EST Images from the original note were not included. Monet Calvo MD You 3 hours ago (11:21 AM) No further screening colonoscopies required. No follow up required. Thank you * Telephone Encounter - Alison Matos RN - 10/11/2022 10:[address] Calvo are there any recommendations for future colonoscopy? I will update health maintenance.Alison Matos RN * Telephone Encounter - Alison Matos RN - 10/11/2022 10:07 AM EST Cancelled pt's f/u appointment after speaking with son via phone, no specimens taken and no path toreview.Alison Matos RN * Telephone Encounter - Hailey Castro - 09/05/2022 2:36 PM EST 10/04/2022 colon lodi Patient okay for ASC. Wanted to get in sooner and not around holidays. Orders changed to lodi Hailey Castro Information Systems Operator documented in this encounterTrinity [facility]12-05-2022 History of Present illness Narrative* Henok Martinez MD - 10/01/2022 3:27 PM EST Patient presents with: Blood Pressure HPI: Patient presents today for office visit for blood pressure. Adding losartan for blood pressure. States that still some cough but has drainage. Cough is much better. Did see surgery for diarrhea and is scheduled for colonoscopy. Tolerating metformin. Diarrhea still occurred when off of meds. A1c is acceptable for her age. Her cholesterol is up. Is not taking her lipitor. She has been on 40 mg before and stopped it due to having a vaginal infection. She has tolerated 20 mg. Explained it is unlikely lipitor was the cuprit. She is not taking her amlodipine as well. Component Latest Ref Rng & Units 08/31/2022 WBC 3.70 - 11.00 k/uL 8.65 RBC 3.90 - 5.20 m/uL 4.18 Hemoglobin 11.5 - 15.5 g/dL 12.2 Hematocrit 36.0 - 46.0 % 38.2 MCV 80.0 - 100.0 fL 91.4 MCH 26.0 - 34.0 pg 29.2 MCHC 30.5 - 36.0 g/dL 31.9 RDW-CV 11.5 - 15.0 % 13.0 Platelet Count 150 - 400 k/uL 240 MPV 9.0 - 12.7 fL 12.0 Neut% % 65.9 Abs Neut (ANC) 1.45 - 7.50 k/uL 5.69 Lymph% % 23.1 Abs Lymph 1.00 - 4.00 k/uL 2.00 [place]% % 8.4 Abs [place] <0.87 k/uL 0.73 Eosin% % 2.0 Abs Eosin <0.46 k/uL 0.17 Baso% % 0.3 Abs Baso <0.11 k/uL 0.03 Immature Gran % % 0.3 IMMATURE GRANS (ABS) <0.10 k/uL 0.03 NRBC /100 WBC 0.0 Absolute nRBC <0.01 k/uL <0.01 DTYPE Auto Protein, Total 6.3 - 8.0 g/dL 6.7 Albumin 3.9 - 4.9 g/dL 4.3 Calcium 8.5 - 10.2 mg/dL 10.1 Bilirubin, Total 0.2 - 1.3 mg/dL 0.3 Alkaline Phosphatase 34 - 123 U/L 93 AST 13 - 35 U/L 19 ALT 7 - 38 U/L 14 Glucose 74 - 99 mg/dL 166 (H) BUN 7 - 21 mg/dL 14 Creatinine 0.58 - 0.96 mg/dL 0.77 Sodium 136 - 144 mmol/L 140 Potassium 3.7 - 5.1 mmol/L 4.3 Chloride 97 - 105 mmol/L 103 CO2 22 - 30 mmol/L 29 Anion Gap 9 - 18 mmol/L 8 (L) eGFR >=60 mL/min/1.73m 77 Cholesterol, Total <200 mg/dL 227 (H) Triglyceride <150 mg/dL 145 HDL Cholesterol >39 mg/dL 47 Non HDL Cholesterol <130 mg/dL 180 (H) Fasting Time hrs 14 VLDL Cholesterol <30 mg/dL 29 TC:HDL Ratio <5.10 4.83 LDL Cholesterol <100 mg/dL 151 (H) LDL:HDL Ratio <2.54 3.21 (H) Creatinine, Ur Random (UCRR) 20.0 - 300.0 mg/dL 94.1 Albumin, Urine Random mg/L <12.0 Albumin/Creat Ratio <30 mg/g <13 Hemoglobin A1C 4.3 - 5.6 % 7.7 (H) Estimated Average Glucose mg/dL 174 TSH 0.270 - 4.200 mIU/L 2.770 MEDICATIONS: Current Outpatient Medications Medication Sig losartan (COZAAR) 25 mg tablet Take 1 tablet by mouth once daily. metFORMIN (GLUCOPHAGE) 500 mg tablet Take 1 tablet by mouth twice daily with meals. pantoprazole DR (PROTONIX) 40 mg tablet Take 1 tablet by mouth once daily. metoprolol tartrate, short acting, (LOPRESSOR) 50 mg tablet Take 1 tablet by mouth twice daily. atorvastatin (LIPITOR) 40 mg tablet Take 40 mg by mouth once daily. amLODIPine (NORVASC) 10 mg tablet Take 10 mg by mouth once daily. apixaban (ELIQUIS) 2.5 mg tab tab(s) Take 2.5 mg by mouth twice daily. Methylsulfonylmethane (MSM) 1,000 mg cap Take 1 capsule by mouth once daily. No current facility-administered medications for this visit. ALLERGIES: ALLERGIES Allergen Reactions Penicillins Anaphylaxis Tetracycline Rash PAST MEDICAL HISTORY Diagnosis Date Lundberg's palsy Gastroesophageal reflux disease without esophagitis History of CVA (cerebrovascular accident) Mild intermittent asthma without complication Primary hypertension Type 2 diabetes mellitus without complication, without long-term current use of insulin (HCC) PAST SURGICAL HISTORY Procedure Laterality Date APPENDECTOMY CATARACT EXTRACTION HX HEMORRHOIDECTOMY HYSTERECTOMY HX without bso PAST SURGICAL HISTORY OF ? repair of cystocele RHINOPLASTY N/A FAMILY HISTORY Problem Relation Age of Onset Pancreatic Cancer Mother Lung Cancer Father Heart disease Son Social History Tobacco Use Smoking status: Former Smokeless tobacco: Never Vaping Use Vaping Use: Never used Substance Use Topics Alcohol use: Not Currently Drug use: Never Reviewed current medications, allergies, past medical history, surgical history, family history andsocial history today. REVIEW OF SYSTEMS Used to be on breo but stopped it on her own. Her breathing she says is ok. Suggested pft's All other reviewed and negative other than HPI. VITALS: BP 152/78 Pulse 107 Wt 76.7 kg (169 lb) SpO2 99% BMI 31.93 kg/m Last 4 Encounter Wt Readings: Date: Wt: 09/05/2022 76.2 kg (168 lb) 08/30/2022 74.4 kg (164 lb) 01/26/2022 74.4 kg (164 lb) 12/12/2021 75 kg (165 lb 6.4 oz) PHYSICAL EXAMINATION: General appearance: Well appearing, alert, in no acute distress, well-hydrated, well nourished. Skin: Skin color, texture, turgor normal, no suspicious rashes or lesions Head: Normocephalic, no masses, lesions, tenderness or abnormalities Neck: Supple, no adenopathy; thyroid symmetric, normal size, no bruits Lungs: Lungs clear to auscultation. No wheezing, rhonchi, rales Heart: RRR without murmur, gallop, or rubs. No ectopy Abdomen: Normal abdominal exam, Abdomen soft, non-tender. Bowel sounds normal. No masses, organomegaly Extremities: No deformities, edema, skin discoloration, clubbing or cyanosis. Good capillary refill. 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 2. Primary hypertension - ICD9: 401.9, ICD10: I10 - suboptimal control - Increase losartan - Recommended regular aerobic exercise. - Recommend home blood pressure monitoring, to bring results in on next visit - Goal of BP <130/80 - LOSARTAN 50 MG TABLET 3. Type 2 diabetes mellitus without complication, without long-term current use of insulin (HCC) - ICD9: 250.00, ICD10: E11.9 - acceptable for her age. - HGB A1C - COMP METABOLIC PANEL - LIPID PANEL BASIC 4. History of CVA (cerebrovascular accident) - ICD9: V12.54, ICD10: Z86.73 - stay on meds. 5. Mild intermittent asthma without complication - ICD9: 493.90, ICD10: J45.20 - readd maintenance inhaler if worsens. - SPIROMETRY - BASELINE AND POST DILATOR - LUNG VOLUMES - LUNG DIFFUSION CAPACITY (DLCO) Henok Martinez MD documented in this encounterTr[facility]-21-2022 Miscellaneous Notes* Telephone Encounter - Li Allison - 09/17/2022 2:41 PM EST Timothy, patients son informed new med sent in. Li Allison * Telephone Encounter - Henok Martinez MD - 09/17/2022 2:30 PM EST sent * Telephone Encounter - Li Allison - 09/17/2022 2:27 PM EST Clarified with girma Aguirre. Patient did in fact start taking the medication and then developed the drycough. Requesting alternative to [facility] pharmacy. Advise. Li Allison * Telephone Encounter - Laura Jackson Pss - 09/17/2022 2:11 PM EST Son is Calling in regarding the lisinopril; when his mom picked up the medication at the pharmacy the pharmacist stated that she could get a DRY cough and if so to report to Doctor office right away.So she is NOT taking this medication as she has a dry cough. Wanting to know if there is something else that can be sent to the pharmacy. Please contact Girma Aguirre at [phone]. Laura Barreto documented in this encounterTrinity [facility]11-09-2022 History of Present illness Narrative* Monet Calvo MD - 09/05/2022 6:19 PM EST HISTORY AND PHYSICAL Telma Tineo 1940 REFERRING PHYSICIAN: No ref. provider found CHIEF COMPLAINT: Consult (Change in bowel, frequency in diarrhea) HPI: The patient is a 82 year old female referred for endoscopy. Telma notes loose stools - sometimes several times a day. The patient denies blood in stools She notes generalized abdominal pain for the past month The patient notes no colon cancer in immediate family. The patient has had previous colonoscopy 4 years (in [place]) She is on eliquis for history of CVA. PAST MEDICAL HISTORY Diagnosis Date Lundberg's palsy Gastroesophageal reflux disease without esophagitis History of CVA (cerebrovascular accident) Mild intermittent asthma without complication Primary hypertension Type 2 diabetes mellitus without complication, without long-term current use of insulin (HCC) PAST SURGICAL HISTORY Procedure Laterality Date APPENDECTOMY CATARACT EXTRACTION HX HEMORRHOIDECTOMY HYSTERECTOMY HX without bso PAST SURGICAL HISTORY OF ? repair of cystocele RHINOPLASTY N/A Current Outpatient Medications Medication Sig lisinopril (ZESTRIL, PRINIVIL) 5 mg tablet Take 1 tablet by mouth once daily. metFORMIN (GLUCOPHAGE) 500 mg tablet Take 1 tablet by mouth twice daily with meals. pantoprazole DR (PROTONIX) 40 mg tablet Take 1 tablet by mouth once daily. metoprolol tartrate, short acting, (LOPRESSOR) 50 mg tablet Take 1 tablet by mouth twice daily. atorvastatin (LIPITOR) 40 mg tablet Take 40 mg by mouth once daily. amLODIPine (NORVASC) 10 mg tablet Take 10 mg by mouth once daily. apixaban (ELIQUIS) 2.5 mg tab tab(s) Take 2.5 mg by mouth twice daily. Methylsulfonylmethane (MSM) 1,000 mg cap Take 1 capsule by mouth once daily. peg 3350-Electrolytes (GOLYTELY) 236-22.74-6.74 -5.86 gram suspension Take 4,000 mL by mouth one time only for 1 dose. Refer to printed prep instructions from your provider. ALLERGIES: Penicillins and Tetracycline PERSONAL HISTORY: Social History Tobacco Use Smoking status: Former Smokeless tobacco: Never Vaping Use Vaping Use: Never used Substance Use Topics Alcohol use: Not Currently Drug use: Never FAMILY HISTORY Problem Relation Age of Onset Pancreatic Cancer Mother Lung Cancer Father Heart disease Son The review of systems data was entered by the nurse and reviewed by tn Nursing Notes: Deborah Montiel LPN 09/05/2022 1:47 PM Signed REVIEW OF SYSTEMS: General: The patient denies fatigue, denies weight loss, denies weight gain, denies feeling hot, and denies feelings of cold. Eyes: The patient notes glaucoma, denies eye injury/surgery, does wear glasses or contacts. Ear/Nose/Throat: The patient notes allergies, denies hayfever, denies ear infections, and denies bloody noses. Cardiovascular: The patient denies chest pain, denies heart disease, notes high blood pressure,denies cardiac stent, denies prior heart attack, denies irregular heart beat, denies high cholesterol, denies poor circulation, denies heart failure, other cardiac issues, denies claudication, denies coldfeet, denies peripheral arterial stent. Respiratory: The patient denies tuberculosis, denies pneumonia, denies frequent cough, denies pulmonary embolism, notes shortness of breath, and denies coughing up blood. Gastrointestinal: The patient denies difficulty swallowing, notes acid reflux, denies ulcers, denies vomiting, denies jaundice/hepatitis, denies gallbladder problems, notes black or tarry stools, denies hemorrhoids, denies bleeding from rectum, denies diverticulitis, denies constipation, notes diarrhea, denies loss of stool control, and denies hernias. Kidney/Bladder: The patient denies kidney stones, notes urine infections, and denies bloody urine. Skin: The patient denies a history of skin cancer, denies bleeding/changing moles, and denies a history of skin rash. Neurologic: The patient denies a history of epilepsy/convulsions, denies headaches, denies head/spinal injuries, and notes stroke/TIA. Psychiatric: The patient denies psychiatric medications, denies depression, and denies voices, denies substance abuse. Endocrine: The patient denies thyroid disorders, notes diabetes, and denies hormonal problems. Hematologic: The patient denies a history of bruising, denies bleeding, and denies anemia, denies blood clots. Infections: The patient notes a history of measles and mumps, denies rheumatic fever, and denies sexually transmitted diseases. Musculoskeletal: The patient denies back pain/injury, denies back problems, denies sciatica, notes knee/foot trouble, notes arthritis, or denies gout. hen was patient's last Mammogram screening? na Last Colon[place] Deborah Montiel LPN PHYSICAL EXAMINATION: General: The patient is 82 year old female, well nourished, well hydrated in no acute distress. Thepatient is oriented to time, place, and person. VITALS: Blood pressure 148/94, pulse 65, temperature 36.9 C (98.4 F), height 154.9 cm (5' 1), weight 76.2 kg (168 lb), SpO2 97 %. Body mass index is 31.74 kg/m . Head: Normal cephalic, atraumatic Eyes: pupils are equally round, sclera are clear/anicteric Neck is supple with no tracheal deviation Respiratory: Normal respiratory excursion and pattern. Abdominal exam: obese and benign Extremities: no clubbing, cyanosis or edema. Neuro: non focal Psych: normal mood Assessment IMPRESSION: change in bowel habits PLAN: I have discussed the above with the patient and her son who is present with her. I have offered colonoscopy , possible biopsies I have explained the procedure to the patient. I have counseled the patient as to the risks of the procedure, including but not limited to: infection, bleeding, injury to any intrabdominal organs such as liver/spleen, perforation of the GI tract,inability to complete the procedure, complications of anesthesia, etc. - the patient understands. I have told patient to hold Eliquis for two days prior to the procedure. The patient was offered a [facility]procedure [facility]. The provider and patient have discussed in detail the risk of exposure to and/or potential harm posed by the COVID-19 viruswith having a surgery/procedure at this time versus the risk of delaying the surgery/procedure. It is not possible to know either the risk of delaying the surgery or procedure or chance of getting aninfection with perfect accuracy, but a joint decision was made between the patient and the providerto proceed at this time with the scheduled surgery/procedure. The patient wishes to proceed. I have answered all questions to the patient s satisfaction and the patient has no further questions. Diagnoses: (R19.4) Change in bowel habits (primary encounter diagnosis) I have confirmed and edited as necessary, the PFSH and ROS obtained by others. Consultation requested by Dr. Henok Martinez for an opinion regarding patient's change in bowel habits.. My final recommendations will be communicated back to the requesting physician by way of shared Medical record or letter to requesting physician via US mail. Medical Decision Making: Problems: Low: Stable chronic illness Risk: Low: Low risk from testing/treatment Medical Decision Making Level: 3 - Low Return to Clinic: The patient will be scheduled for colonoscopy at [facility]. Monet Calvo MD documented in this encounterTrinity [facility]11-09-2022 Instructions* Patient Instructions* Monet Calvo MD - 09/05/2022 2:02 PM EST Images from the original note were not included. Bowel Preparation Instructions for: Golytely, Nulytely, Trilyte or Colyte (polyethylene glycol 3350and electrolytes) IF YOU DO NOT FOLLOW THESE DIRECTIONS, YOUR COLONOSCOPY WILL BE CANCELLED. Gomez Instructions: Your bowel must be empty so that your doctor can clearly view your colon. Follow all of the instructions in this handout EXACTLY as they are written. Do NOT eat any solid food the ENTIRE day before your colonoscopy. Drink only clear liquids. Buy your bowel preparation at least 5 days before your colonoscopy. TRANSPORTATION on the Day of Your Exam A responsible person MUST be present with you at Check In prior to your colonoscopy and REMAIN in the endoscopy area until you are discharged. You are NOT ALLOWED to drive, take a taxi or bus, or leave the Endoscopy Center ALONE. If you do not have a responsible frontload driver (family member or friend) with you to take you home, your exam cannot be done with sedation and will be cancelled. Please bring a list of all of your current medications, including any Over-the Counter medications with you. Medications If you take insulin, diabetic medications or blood thinners such as Coumadin (warfarin), Plavix (clopidogrel), Ticlid (ticlopidine hydrochloride), Agrylin (anagrelide), Xarelto (Rivaroxaban), Pradaxa(Dabigatran), Eliquis (Apixaban), and Effient (Prasugrel). You MUST call the doctors who orders those medicines for instructions on altering the dosage before your colonoscopy. All other medications should be taken the day of the exam with a sip of water including ASPIRIN. Five (5) Days Before Your Colonoscopy Do NOT take medicines that stop diarrhea - such as Imodium, Kaopectate, or Pepto Bismol. Do NOT take fiber supplements - such as Metamucil, Citrucel, or Perdiem. Do NOT take products that contain iron - such as multi-vitamins (the label lists what is in the products). Do NOT take Vitamin E. Buy the prescription bowel preparation solution at your local pharmacy or drugstore pharmacy. 1 09/2019 Bowel Preparation Instructions for: Golytely, Nulytely, Trilyte or Colyte (polyethylene glycol 3350and electrolytes) Three (3) Days Before Your Colonoscopy Do NOT eat high-fiber foods - such as popcorn, beans, seeds (flax, sunflower, quinoa), multigrain bread, nuts, salad/vegetables, or fresh and dried fruit. One (1) Day Before Your Colonoscopy Only drink clear liquids the ENTIRE DAY before your colonoscopy. Do NOT eat any solid foods. Drink at least 8 ounces of clear liquids every hour after waking up. The clear liquids you can drink include: Clear Liquid (NO RED LIQUIDS) DO NOT DRINK Gatorade, Pedialyte or Powerade Clear broth or bouillon Coffee or tea (no milk or non-dairy creamer) Carbonated and non-carbonated soft drinks Marito-Aid or other fruit flavored drinks Strained fruit juices (no pulp) Jell-O, popsicles, hard candy Water Alcohol Milk or non-dairy creamers Noodles or vegetables in soup Juice with pulp Liquid you cannot see through Do not use tobacco/vaping products The bowel preparation solution will be consumed in two parts. Mix the solution the evening before your colonoscopy and refrigerate before drinking. You may add the flavor pack that came with the bowel preparation. Do NOT add ice, sugar or any other flavorings to the solution. Part 1 At 6:00 PM - Evening before your colonoscopy Drink an 8-oz glass of bowel preparation every 10 minutes for a total of 8 glasses. You may continue to drink clear liquids until midnight. Part 2 On the day of your colonoscopy you may drink clear liquids up to (three) 3 hours before your procedure. 4 1/2 hours before your colonoscopy Drink an 8-oz glass of bowel preparation every 10 minutes for a total of 8 glasses. Fifteen (15) minutes later, drink an 8-oz glass of clear liquids every 15 minutes for a total of 2 glasses. You may continue to drink clear liquids up to (three) 3 hours before your exam. 2 09/2019 documented in this encounterTr[facility]11-09-2022 Nurse Note* Deborah Montiel LPN - 09/05/2022 1:44 PM EST REVIEW OF SYSTEMS: General: The patient denies fatigue, denies weight loss, denies weight gain, denies feeling hot, and denies feelings of cold. Eyes: The patient notes glaucoma, denies eye injury/surgery, does wear glasses or contacts. Ear/Nose/Throat: The patient notes allergies, denies hayfever, denies ear infections, and denies bloody noses. Cardiovascular: The patient denies chest pain, denies heart disease, notes high blood pressure,denies cardiac stent, denies prior heart attack, denies irregular heart beat, denies high cholesterol, denies poor circulation, denies heart failure, other cardiac issues, denies claudication, denies coldfeet, denies peripheral arterial stent. Respiratory: The patient denies tuberculosis, denies pneumonia, denies frequent cough, denies pulmonary embolism, notes shortness of breath, and denies coughing up blood. Gastrointestinal: The patient denies difficulty swallowing, notes acid reflux, denies ulcers, denies vomiting, denies jaundice/hepatitis, denies gallbladder problems, notes black or tarry stools, denies hemorrhoids, denies bleeding from rectum, denies diverticulitis, denies constipation, notes diarrhea, denies loss of stool control, and denies hernias. Kidney/Bladder: The patient denies kidney stones, notes urine infections, and denies bloody urine. Skin: The patient denies a history of skin cancer, denies bleeding/changing moles, and denies a history of skin rash. Neurologic: The patient denies a history of epilepsy/convulsions, denies headaches, denies head/spinal injuries, and notes stroke/TIA. Psychiatric: The patient denies psychiatric medications, denies depression, and denies voices, denies substance abuse. Endocrine: The patient denies thyroid disorders, notes diabetes, and denies hormonal problems. Hematologic: The patient denies a history of bruising, denies bleeding, and denies anemia, denies blood clots. Infections: The patient notes a history of measles and mumps, denies rheumatic fever, and denies sexually transmitted diseases. Musculoskeletal: The patient denies back pain/injury, denies back problems, denies sciatica, notes knee/foot trouble, notes arthritis, or denies gout. When was patient's last Mammogram screening? na Last [place] Deborah Montiel LPN documented in this encounterTrinity [facility]09-19-2022 Miscellaneous Notes* Telephone Encounter - Cris Garza Ma - 07/16/2022 2:31 PM EDT ESTELLE 01/26/22 NOV 07/30/22 * Telephone Encounter - Dahlia Barreto - 07/16/2022 2:13 PM EDT Patient has been identified by name and date of : Yes Requested Prescriptions Pending Prescriptions Disp Refills pantoprazole DR (PROTONIX) 40 mg tablet 90 tablet 3 Sig: Take 1 tablet by mouth once daily. metoprolol tartrate, short acting, (LOPRESSOR) 50 mg tablet 180 tablet 3 Sig: Take 1 tablet by mouth twice daily. RX INSTRUCTIONS: Patient had to change to [facility] and needs 90 days also. Patient aware RX will be sent to pharmacy. No need to notify patient. Dahlia Franco Pss documented in this encounterTrinity [facility]07-22-2022 Miscellaneous Notes* Telephone Encounter - Taco Shields RN - 05/18/2022 5:00 PM EDT Daughter reports patient has not taken metformin for 3 weeks. Reports [facility] told them they sent several requests and got no response. Patient has been identified by name and date of : Yes Daughter phones for refill(s): Pending Prescriptions Disp Refills METFORMIN 500 MG TABLET 180 tablet 0 Sig: Take 1 tablet by mouth twice daily with meals. CORINNA: No Date of last office visit with pcp: 01-26-22. Next appt: 07-30-22 Last 2 Encounter Wt Readings: Date: Wt: 01/26/2022 74.4 kg (164 lb) 12/12/2021 75 kg (165 lb 6.4 oz) Previous labs/tests for medication: Diabetes: Hemoglobin A1C (%) Date Value 01/26/2022 8.8 09/25/2021 10.2 Please advise. Thank you. Taco Shields RN documented in this encounterTrinity [facility]06-27-2022 Miscellaneous Notes* Telephone Encounter - Taco Shields RN - 04/23/2022 1:35 PM EDT Daughter reports she tested + covid last Sat, and patient tested + covid last Sat, at the [facility]. Was prescribed tessalon perrles and inhaler, which have helped. Reports patient is better today but continues to have cough and head congestion. Thinks patient needs prednisone. Advised would need to talk to a provider for medication. Since patient does not have a MC to schedule VV, and still not over covid s/s, daughter agreeable to contact [facility] for a virtual visit. documented in this encounterTrinity Health [facility] Campus04-05-2022 Miscellaneous Notes* Telephone Encounter - Kerline Hogna LPN - 01/30/2022 2:35 PM EDT A 90 day supply was dispensed on 01/26/22 at [facility] pharmacy. Janet Hogan LPN * Telephone Encounter - Daina Ríos RN - 01/29/2022 11:06 AM EDT Pts daughter called in and reports that pharmacy said they needed PA from provider in order for them to get medication, and that is why she has not been taking it. I will put PA through today. Pts daughter will bring her back in 3 months to get A1C drawn. Prior Authorization Documentation Prior authorization requested for the following medication: Medication: Metformin Provider: Dr Henok Martinez Insurance Company Name:[employer] Phone number: Patient ID number:[id number] Pharmacy Name: [facility] Telephone number: [phone] * Telephone Encounter - Cris Garza Ma - 01/29/2022 10:58 AM EDT Left message for patient to return call. Cris Garza Ma * Telephone Encounter - Henok Martinez MD - 01/29/2022 8:06 AM EDT Sugars is still high. Make sure she picks up the metformin and continues the med. Lets recheck a1c in three months documented in this encounterTrinity [facility]04-01-2022 History of Present illness Narrative* Henok Martinez MD - 01/26/2022 10:18 AM EDT Patient presents with: Follow Up: PATIENT IS HERE FOR 3 MONTH FOLLOW UP HPI: Patient presents today for office visit for follow up. She is accompanied by her grandson. Metformin added last visit. Says she was not aware to take it even those there were several phone calls back and forth with patient and daughter about the medication. After much discussion she did use it but had issues getting it refilled even though a years worth was sent in. After much discussion she is reluctant to take meds for sugar and feels her sugars will be better. We had a israel discussion regarding the risk of untreated dm. No chest pain or shortness of breath. No edema. No dizziness. No bleeding issues. See last ov: Had CVA in March. Had echo at that time that showed right atrial mass. Jose confirmed. It was felt meño an atrial myxoma. Has been to Er recently for elevated bp as well. Saw Cardiology on 08/28 Had aphasia with her stroke and confusion. Resolved. Was sent home on eliquis following her diagnosis and has maintained. No bleeding. HYPERTENSION: bp has been up recently. Amlodipine added recently. No chest pain or shortness of breath Trace dependent edema periodically. HYPERLIPIDEMIA: Patient is taking medications: Yes. Patient denies myalgias: Yes. DM: used to be on medication. Is not currently taking it. No checking sugars. Had eyes checked last year. Gi: takes chronic meds for reflux. Used to be on breo. Her current breathing is good. Component Latest Ref Rng & Units 09/25/2021 10/02/2021 WBC 3.70 - 11.00 k/uL 8.41 RBC 3.90 - 5.20 m/uL 4.50 Hemoglobin 11.5 - 15.5 g/dL 13.2 Hematocrit 36.0 - 46.0 % 40.1 MCV 80.0 - 100.0 fL 89.1 MCH 26.0 - 34.0 pG 29.3 MCHC 30.5 - 36.0 g/dL 32.9 RDW-CV 11.5 - 15.0 % 12.7 Platelet Count 150 - 400 k/uL 201 MPV 9.0 - 12.7 fL 12.2 Neut% % 65.8 Abs Neut (ANC) 1.45 - 7.50 k/uL 5.53 Lymph% % 23.9 Abs Lymph 1.00 - 4.00 k/uL 2.01 [place]% % 8.4 Abs [place] <0.87 k/uL 0.71 Eosin% % 1.7 Abs Eosin <0.46 k/uL 0.14 Baso% % 0.2 Abs Baso <0.11 k/uL <0.03 Nucleated Reds 0 /100 WBC 0.0 Absolute nRBC <0.01 k/uL <0.01 Diff Type Auto Diff Protein, Total 6.3 - 8.0 g/dL 7.2 Albumin 3.9 - 4.9 g/dL 4.4 Calcium 8.5 - 10.2 mg/dL 9.7 Bilirubin, Total 0.2 - 1.3 mg/dL 0.5 Alkaline Phosphatase 34 - 123 U/L 131 (H) AST 13 - 35 U/L 14 Glucose 74 - 99 mg/dL 243 (H) BUN 7 - 21 mg/dL 14 Creatinine 0.58 - 0.96 mg/dL 0.78 Sodium 136 - 144 mmol/L 139 Potassium 3.7 - 5.1 mmol/L 4.2 Chloride 97 - 105 mmol/L 101 CO2 22 - 30 mmol/L 24 Anion Gap 9 - 18 mmol/L 14 ALT 7 - 38 U/L 15 eGFR- >60 eGFR-All Other Races . >60 Cholesterol, Total <200 mg/dL 156 Triglyceride <150 mg/dL 158 (H) HDL Cholesterol >39 mg/dL 51 LDL Cholesterol <100 mg/dL 73 Non HDL Cholesterol <130 mg/dL 105 Fasting Time hrs 12 VLDL Cholesterol <30 mg/dL 32 (H) TC:HDL Ratio <5.10 3.06 LDL:HDL Ratio <2.54 1.43 Alkaline Phosphatase (ALKISO) 34 - 123 U/L 134 (H) Alk Phos Bone % 10.7 - 68.3 % 39.8 Bone Fraction 12.9 - 52.6 U/L 53.3 (H) Alk Phos Liver % 26.0 - 86.2 % 35.5 Liver Fraction 16.0 - 69.3 U/L 47.6 Alk Phos Intestine % 0.0 - 24.2 % 24.7 (H) Intestine Fraction 0.0 - 16.3 U/L 33.1 (H) Creatinine, Ur Random (UCRR) 20 - 300 mg/dL 192.0 Albumin, Urine Random mg/L 22.3 Albumin/Creat Ratio <30 mg/g 12 Hemoglobin A1C 4.3 - 5.6 % 10.2 (H) Estimated Average Glucose mg/dL 246 Bone scan was negative. MEDICATIONS: Current Outpatient Medications Medication Sig metoprolol tartrate, short acting, (LOPRESSOR) 50 mg tablet Take 1 tablet by mouth twice daily. metFORMIN (GLUCOPHAGE) 500 mg tablet Take 1 tablet by mouth twice daily with meals. pantoprazole DR (PROTONIX) 40 mg tablet Take 40 mg by mouth once daily. atorvastatin (LIPITOR) 40 mg tablet Take 40 mg by mouth once daily. amLODIPine (NORVASC) 10 mg tablet Take 10 mg by mouth once daily. apixaban (ELIQUIS) 2.5 mg tab tab(s) Take 2.5 mg by mouth twice daily. Methylsulfonylmethane (MSM) 1,000 mg cap Take 1 capsule by mouth once daily. No current facility-administered medications for this visit. ALLERGIES: ALLERGIES Allergen Reactions Penicillins Anaphylaxis Tetracycline Rash PAST MEDICAL HISTORY Diagnosis Date Lundberg's palsy Gastroesophageal reflux disease without esophagitis History of CVA (cerebrovascular accident) Mild intermittent asthma without complication Primary hypertension Type 2 diabetes mellitus without complication, without long-term current use of insulin (HCC) PAST SURGICAL HISTORY Procedure Laterality Date APPENDECTOMY CATARACT EXTRACTION HX HEMORRHOIDECTOMY HYSTERECTOMY HX without bso PAST SURGICAL HISTORY OF ? repair of cystocele RHINOPLASTY N/A FAMILY HISTORY Problem Relation Age of Onset Pancreatic Cancer Mother Lung Cancer Father Heart disease Son Social History Tobacco Use Smoking status: Former Smoker Smokeless tobacco: Never Used Substance Use Topics Alcohol use: Not Currently Drug use: Not on file Reviewed current medications, allergies, past medical history, surgical history, family history andsocial history today. REVIEW OF SYSTEMS All other reviewed and negative other than HPI. VITALS: BP 138/60 Pulse 60 Resp 16 Wt 74.4 kg (164 lb) Last 4 Encounter Wt Readings: Date: Wt: 01/26/2022 74.4 kg (164 lb) 12/12/2021 75 kg (165 lb 6.4 oz) 09/14/2021 73.5 kg (162 lb) PHYSICAL EXAMINATION: General appearance: Well appearing, alert, in no acute distress, well-hydrated, well nourished. Skin: Skin color, texture, turgor normal, no suspicious rashes or lesions Head: Normocephalic, no masses, lesions, tenderness or abnormalities Lungs: Lungs clear to auscultation. No wheezing, rhonchi, rales Heart: RRR without murmur, gallop, or rubs. No ectopy Abdomen: Normal abdominal exam, Abdomen soft, non-tender. Bowel sounds normal. No masses, organomegaly Extremities: No deformities, edema, skin discoloration, clubbing or cyanosis. Good capillary refill. Musculoskeletal: No joint swelling, deformity, or tenderness Peripheral pulses: Normal Neuro: Negative. ASSESSMENT/PLAN: 1. History of CVA (cerebrovascular accident) - ICD9: V12.54, ICD10: Z86.73 (primary diagnosis) - continue meds. Follow with cardiology. 2. Type 2 diabetes mellitus without complication, without long-term current use of insulin (HCC) - ICD9: 250.00, ICD10: E11.9 poorly controlled - Reinforced need for compliance. Check labs. today - METFORMIN 500 MG TABLET - HGB A1C 3. Primary hypertension - ICD9: 401.9, ICD10: I10 - fair control - Continue current medication(s) - Goal of BP <130/80 - METOPROLOL TARTRATE 50 MG TABLET 4. 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 Henok Martinez [facility]* Diagnosis Onset Date Resolution Status History of TIA (transient ischemic attack) acute Mild cognitive impairment ac native Transient ischemic attack March, ac native [facility] Work Phone: Evaluation note* Diagnosis History of CVA (cerebrovascular accident)- Primary Transient ischemic attack (TIA), 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 deficits Type 2 diabetes mellitus without complication, without long-term current use of insulin (HCC) Primary hypertension Unspecified essential hypertension Atrial myxoma Benign neoplasm of heart [facility] Diagnosis Type 2 diabetes mellitus without complication, without long-term current use of insulin (HCC)- [facility] Diagnosis Type 2 diabetes mellitus without complication, without long-term current use of insulin (HCC) [facility] Diagnosis Primary hypertension Unspecified essential hypertension [facility] Diagnosis Change in bowel habits- Primary Other symptoms involving digestive system [facility] Diagnosis Primary hypertension- Primary Unspecified essential hypertension [facility] Diagnosis 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 Primary hypertension Unspecified essential hypertension Type 2 diabetes mellitus without complication, without long-term current use of insulin (HCC) History of CVA (cerebrovascular accident) Transient ischemic attack (TIA), 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 deficits Mild intermittent asthma without complication Unspecified asthma [facility] Diagnosis Mild intermittent asthma without complication Unspecified asthma [facility] Diagnosis Mild intermittent asthma without complication Unspecified asthma [facility] Diagnosis Cough, unspecified type- Primary Primary hypertension Unspecified essential hypertension [facility] Diagnosis Chronic cough Cough [facility] Diagnosis Chronic cough- Primary Cough Abnormal chest x-ray Other nonspecific abnormal finding of lung field Mild persistent asthma without complication Unspecified asthma [facility] Diagnosis Bronchiectasis without complication (HCC)- Primary Bronchiectasis without acute exacerbation Mild intermittent asthma without complication Unspecified asthma [facility] Diagnosis Primary hypertension- Primary Unspecified essential hypertension documented in this encounter [facility] note* Diagnosis Primary hypertension- Primary Unspecified essential hypertension Type 2 diabetes mellitus without complication, without long-term current use of insulin (HCC) Atrial myxoma Benign neoplasm of heart History of uterine cancer Personal history of malignant neoplasm of other parts of uterus History of CVA (cerebrovascular accident) Transient ischemic attack (TIA), 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 deficits Gastroesophageal reflux disease without esophagitis Esophageal reflux Bronchiectasis without complication (HCC) Bronchiectasis without acute exacerbation Mild intermittent asthma without complication Unspecified asthma [facility] Diagnosis Vaginal bleeding- Primary Other specified noninflammatory disorder of vagina Pelvic and perineal pain Unspecified symptom associated with female genital organs History of uterine cancer Personal history of malignant neoplasm of other parts of uterus [facility] this [facility]* Diagnosis Type 2 diabetes mellitus without complication, without long-term current use of insulin (HCC)- Primary Pseudophakia of both eyes Lens replaced by other means Presbyopia documented in this encounter [facility] note* Diagnosis Obesity, Class I, BMI 30-34.9- Primary Obesity, unspecified Type 2 diabetes mellitus without complication, without long-term current use of insulin (HCC) Dietary counseling Dietary surveillance and counseling documented in this encounter [facility] note* Diagnosis Onset Date Resolution Status Atrial fibrillation acute Chest pain acute Essential hypertension chron ic Right atrial mass chronic [facility] Work Phone: Evaluation note* Diagnosis Primary hypertension- Primary Unspecified essential hypertension Type 2 diabetes mellitus without complication, without long-term current use of insulin (HCC) documented in this encounter [facility] note* Diagnosis Primary hypertension- Primary Unspecified essential hypertension History of CVA (cerebrovascular accident) Transient ischemic attack (TIA), 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 deficits Atrial fibrillation, unspecified type (HCC) documented in this encounter [facility] note* Diagnosis 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 Tear film insufficiency, unspecified PCO (posterior capsular opacification), left After-cataract, unspecified Type 2 diabetes mellitus without complication, without long-term current use of insulin (HCC) Pseudophakia of both eyes Lens replaced by other means Presbyopia [facility] Diagnosis Pelvic and perineal pain Unspecified symptom associated with female genital organs [facility] Diagnosis Chronic cough Cough Abnormal chest x-ray Other nonspecific abnormal finding of lung field [facility] this 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 Long-term (current) use of anticoagulants Hyperlipidemia, unspecified hyperlipidemia type History of CVA (cerebrovascular accident) Transient ischemic attack (TIA), 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 deficits Impaired cognition Unspecified persistent mental disorders due to conditions classified elsewhere Bronchiectasis without complication (HCC) Bronchiectasis without acute exacerbation Mild intermittent asthma without complication Unspecified asthma Type 2 diabetes mellitus without complication, without long-term current use of insulin (HCC) Gastroesophageal reflux disease without esophagitis Esophageal reflux History of uterine cancer Personal history of malignant neoplasm of other parts of uterus Encounter for immunization Need for other specified prophylactic vaccination against single bacterial disease Pill dysphagia Dysphagia, unspecified Left ear pain Otalgia, unspecified [facility] Diagnosis Type 2 diabetes mellitus without complication, without long-term current use of insulin (HCC)- Primary [facility]* Diagnosis Cerebrovascular accident (CVA), unspecified mechanism (HCC)- Primary History of CVA (cerebrovascular accident) Transient ischemic attack (TIA), 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 deficits Primary hypertension Unspecified essential hypertension Atrial fibrillation, unspecified type (HCC) Atrial myxoma Benign neoplasm of heart Bronchiectasis without complication (HCC) Bronchiectasis without acute exacerbation Type 2 diabetes mellitus without complication, without long-term current use of insulin (HCC) [facility] Diagnosis Primary hypertension Unspecified essential hypertension [facility] Diagnosis Diarrhea, unspecified type- Primary documented in this encounter [facility] note* Diagnosis Sore throat- Primary Acute pharyngitis URI, acute Acute upper respiratory infections of unspecified site [facility] this [facility] Diagnosis Onset Date Resolution Status Atrial fibrillation acute Essential hypertension chron ic Right atrial mass [facility] Work Phone: Evaluation note* Diagnosis Type 2 diabetes mellitus without complication, without long-term current use of insulin (HCC)- Primary Mild intermittent asthma without complication Unspecified asthma Bronchiectasis without complication (HCC) Bronchiectasis without acute exacerbation Bronchitis Bronchitis, not specified as acute or chronic Weight loss Loss of weight documented in this encounter [facility] note* Diagnosis Abnormal x-ray- Primary Other nonspecific (abnormal) findings on radiological and other examinations of body structure documented in this encounter [facility] note* Diagnosis Type 2 diabetes mellitus without complication, without long-term current use of insulin (HCC)- Primary Leukocytosis, unspecified type Hyperkalemia Hyperpotassemia documented in this encounter [facility] note* Diagnosis 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 Tear film insufficiency, unspecified PCO (posterior capsular opacification), left After-cataract, unspecified Type 2 diabetes mellitus without complication, without long-term current use of insulin ([facility]) Pseudophakia of both eyes Lens replaced by other means Presbyopia documented in this encounter [facility] note* Diagnosis Primary hypertension- Primary Unspecified essential hypertension Type 2 diabetes mellitus without complication, without long-term current use of insulin (HCC) Mild intermittent asthma without complication Unspecified asthma documented in this encounter [facility] note* Diagnosis History of CVA (cerebrovascular accident) Transient ischemic attack (TIA), 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 deficits documented in this encounter [facility] note* Diagnosis Anemia, unspecified type- Primary documented in this encounter [facility] note* Diagnosis Mild intermittent asthma without complication- Primary Unspecified asthma Bronchiectasis without complication (HCC) Bronchiectasis without acute exacerbation Rib pain on right side Chest pain, unspecified Poorly controlled type 2 diabetes mellitus (HCC)- Primary Type II or unspecified type diabetes mellitus without mention of complication, not stated as uncontrolled documented in this encounter [facility] note* Diagnosis Primary hypertension- Primary Unspecified essential hypertension History of CVA (cerebrovascular accident) Transient ischemic attack (TIA), 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 deficits Atrial fibrillation, unspecified type (HCC) Cervical radicular pain- Primary Brachial neuritis or radiculitis nos Atrial fibrillation, unspecified type (HCC) Hyperlipidemia, unspecified hyperlipidemia type Primary hypertension Unspecified essential hypertension Type 2 diabetes mellitus without complication, without long-term current use of insulin (HCC) History of CVA (cerebrovascular accident) Transient ischemic attack (TIA), 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 deficits [facility] this [facility]* Diagnosis Primary hypertension- Primary Unspecified essential hypertension History of CVA (cerebrovascular accident) Transient ischemic attack (TIA), 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 deficits Atrial fibrillation, unspecified type (HCC) Abnormal x-ray Other nonspecific (abnormal) findings on radiological and other examinations of body structure [facility] this [facility]* Diagnosis Primary hypertension- Primary Unspecified essential hypertension History of CVA (cerebrovascular accident) Transient ischemic attack (TIA), 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 deficits Atrial fibrillation, unspecified type (HCC) Rib pain on right side Chest pain, unspecified [facility] this [facility] Diagnosis Primary hypertension- Primary Unspecified essential hypertension History of CVA (cerebrovascular accident) Transient ischemic attack (TIA), 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 deficits Atrial fibrillation, unspecified type (HCC) Bronchitis Bronchitis, not specified as acute or chronic documented [facility] this encounter [facility]* Diagnosis Cough, unspecified type documented in this encounter [facility] note* Diagnosis Primary hypertension- Primary Unspecified essential hypertension History of CVA (cerebrovascular accident) Transient ischemic attack (TIA), 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 deficits Atrial fibrillation, unspecified type (HCC) Acute bronchitis, unspecified organism- Primary Oropharyngeal dysphagia Dysphagia, oropharyngeal phase documented [facility] this encounter [facility]* Diagnosis Primary hypertension- Primary Unspecified essential hypertension History of CVA (cerebrovascular accident) Transient ischemic attack (TIA), 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 deficits Atrial fibrillation, unspecified type (HCC) Cerebrovascular accident (CVA), unspecified mechanism (HCC)- Primary Type 2 diabetes mellitus without complication, without long-term current use of insulin (HCC) Atrial fibrillation, unspecified type (HCC) Atrial myxoma Benign neoplasm of heart Primary hypertension Unspecified essential hypertension Hyperlipidemia, unspecified hyperlipidemia type Bronchiectasis without complication (HCC) Bronchiectasis without acute exacerbation Gastroesophageal reflux disease without esophagitis Esophageal reflux History of CVA (cerebrovascular accident) Transient ischemic attack (TIA), 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 deficits 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 Long-term (current) use of anticoagulants Epigastric pain Abdominal pain, epigastric Hemoptysis Hemoptysis, unspecified documented in this encounter [facility] note* Diagnosis Primary hypertension- Primary Unspecified essential hypertension History of CVA (cerebrovascular accident) Transient ischemic attack (TIA), 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 deficits Atrial fibrillation, unspecified type (HCC) Hemoptysis Hemoptysis, unspecified [facility] Diagnosis Primary hypertension- Primary Unspecified essential hypertension History of CVA (cerebrovascular accident) Transient ischemic attack (TIA), 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 deficits Atrial fibrillation, unspecified type (HCC) Dysphagia, oropharyngeal phase- Primary documented in this encounter [facility] note* Diagnosis Primary hypertension- Primary Unspecified essential hypertension History of CVA (cerebrovascular accident) Transient ischemic attack (TIA), 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 deficits Atrial fibrillation, unspecified type (HCC) Oropharyngeal dysphagia Dysphagia, oropharyngeal phase documented in this encounter [facility] note* Diagnosis Primary hypertension- Primary Unspecified essential hypertension History of CVA (cerebrovascular accident) Transient ischemic attack (TIA), 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 deficits Atrial fibrillation, unspecified type (HCC) Epigastric pain Abdominal pain, epigastric Elevated lipase Other nonspecific abnormal serum enzyme levels documented in this encounter [facility] note* Diagnosis Primary hypertension- Primary Unspecified essential hypertension History of CVA (cerebrovascular accident) Transient ischemic attack (TIA), 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 deficits Atrial fibrillation, unspecified type (HCC) Type 2 diabetes mellitus without complication, without long-term current use of insulin (HCC)- Primary Epigastric pain Abdominal pain, epigastric Elevated lipase Other nonspecific abnormal serum enzyme levels Epigastric pain Abdominal pain, epigastric Elevated lipase Other nonspecific abnormal serum enzyme levels documented in this encounter [facility] note* Diagnosis Primary hypertension- Primary Unspecified essential hypertension History of CVA (cerebrovascular accident) Transient ischemic attack (TIA), 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 deficits Atrial fibrillation, unspecified type (HCC) Mild persistent asthma without complication- Primary Unspecified asthma Cough, unspecified type Hemoptysis Hemoptysis, unspecified Bronchiectasis without complication (HCC) Bronchiectasis without acute exacerbation Dysphagia, unspecified type documented in this encounter [facility] note* Diagnosis Primary hypertension- Primary Unspecified essential hypertension History of CVA (cerebrovascular accident) Transient ischemic attack (TIA), 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 deficits Atrial fibrillation, unspecified type (HCC) Primary hypertension Unspecified essential hypertension documented in this encounter [facility] note* Diagnosis Primary hypertension- Primary Unspecified essential hypertension History of CVA (cerebrovascular accident) Transient ischemic attack (TIA), 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 deficits Atrial fibrillation, unspecified type (HCC) Type 2 diabetes mellitus without complication, without long-term current use of insulin (HCC)- Primary [facility] Diagnosis Primary hypertension- Primary Unspecified essential hypertension History of CVA (cerebrovascular accident) Transient ischemic attack (TIA), 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 deficits Atrial fibrillation, unspecified type (HCC) 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)- Primary Malignant neoplasm of head of pancreas documented in this encounter [facility] note* Diagnosis Onset Date Resolution Status Admit Date Atrial fibrillation acute January 10, 2025 12:57am Elevated lipase acute December 12:57am H/O: hysterectomy acute December 262024 12:57am History of uterine cancer acute January 10, 2025 12:57am Hyperbilirubinemia acute January 10, 2025 12:57am Jaundice acute January 10 12:57am Mass of head of pancreas acute January 10, 2025 12:57am Overweight (BMI 25.0-29.9) acute January 10, 2025 12:57am Transaminitis acute January 10, 2025 12:57am Type 2 diabetes mellitus wit h hyperglycemia acute January 10, 2025 12:57am [facility] Work Phone: Evaluation note* Diagnosis Primary hypertension- Primary Unspecified essential hypertension History of CVA (cerebrovascular accident) Transient ischemic attack (TIA), 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 deficits Atrial fibrillation, unspecified type (HCC) 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) Malignant neoplasm of head of pancreas documented in this encounter [facility] note* Diagnosis Primary hypertension- Primary Unspecified essential hypertension History of CVA (cerebrovascular accident) Transient ischemic attack (TIA), 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 deficits Atrial fibrillation, unspecified type (HCC) Encounter for education- Primary Counseling NOS 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) Malignant neoplasm of head of pancreas documented in this encounter [facility] note* Diagnosis Primary hypertension- Primary Unspecified essential hypertension History of CVA (cerebrovascular accident) Transient ischemic attack (TIA), 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 deficits Atrial fibrillation, unspecified type (HCC) 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)- Primary Malignant neoplasm of head of pancreas documented in this encounter [facility] note* Diagnosis Primary hypertension- Primary Unspecified essential hypertension History of CVA (cerebrovascular accident) Transient ischemic attack (TIA), 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 deficits Atrial fibrillation, unspecified type (HCC) Type 2 diabetes mellitus with hyperglycemia, with long-term current use of insulin (HCC)- Primary 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) Malignant neoplasm of head of pancreas documented in this encounter [facility] note* Diagnosis Primary hypertension- Primary Unspecified essential hypertension History of CVA (cerebrovascular accident) Transient ischemic attack (TIA), 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 deficits Atrial fibrillation, unspecified type (HCC) Pancreatic adenocarcinoma (HCC)- Primary Malignant 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, part unspecified assisted current use of anticoagulant therapy Long-term (current) use of anticoagulants History of CVA (cerebrovascular accident) Transient ischemic attack (TIA), 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 deficits Type 2 diabetes mellitus with hyperglycemia, with long-term current use of insulin (HCC) Gastroesophageal reflux disease without esophagitis Esophageal reflux Hyperlipidemia, unspecified hyperlipidemia type 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 Primary hypertension Unspecified essential hypertension Atrial fibrillation, unspecified type (HCC) Type 2 diabetes mellitus without complication, without long-term current use of insulin (HCC) Hyperglycemia Other abnormal glucose Gastrointestinal hemorrhage, unspecified gastrointestinal hemorrhage type 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) Malignant neoplasm of head of pancreas documented in this encounter [facility] note* Diagnosis Primary hypertension- Primary Unspecified essential hypertension History of CVA (cerebrovascular accident) Transient ischemic attack (TIA), 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 deficits Atrial fibrillation, unspecified type (HCC) Pancreatic adenocarcinoma (HCC)- Primary Malignant 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, part unspecified 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) Malignant neoplasm of head of pancreas [facility] Diagnosis Primary hypertension- Primary Unspecified essential hypertension History of CVA (cerebrovascular accident) Transient ischemic attack (TIA), 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 deficits Atrial fibrillation, unspecified type (HCC) 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)- Primary Malignant neoplasm of head of pancreas Dyspnea and respiratory abnormalities Other dyspnea and respiratory abnormality 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) Malignant neoplasm of head of pancreas Dyspnea and respiratory abnormalities Other dyspnea and respiratory abnormality 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) Malignant neoplasm of head of pancreas [facility] Diagnosis Primary hypertension- Primary Unspecified essential hypertension History of CVA (cerebrovascular accident) Transient ischemic attack (TIA), 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 deficits Atrial fibrillation, unspecified type (HCC) 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) Malignant neoplasm of head of pancreas Dyspnea and respiratory abnormalities Other dyspnea and respiratory abnormality 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) Malignant neoplasm of head of pancreas [facility] Diagnosis Primary hypertension- Primary Unspecified essential hypertension History of CVA (cerebrovascular accident) Transient ischemic attack (TIA), 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 deficits Atrial fibrillation, unspecified type (HCC) 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)- Primary Malignant neoplasm of head of pancreas 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) Malignant neoplasm of head of pancreas [facility] Primary hypertension- Primary Unspecified essential hypertension History of CVA (cerebrovascular accident) Transient ischemic attack (TIA), 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 deficits Atrial fibrillation, unspecified type (HCC) 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) Malignant neoplasm of head of pancreas 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) Malignant neoplasm of head of pancreas [facility] Diagnosis Primary hypertension- Primary Unspecified essential hypertension History of CVA (cerebrovascular accident) Transient ischemic attack (TIA), 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 deficits Atrial fibrillation, unspecified type (HCC) 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) Malignant neoplasm of head of pancreas Pneumonia of both lower lobes due to infectious organism 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) Malignant neoplasm of head of pancreas [facility] Diagnosis Primary hypertension- Primary Unspecified essential hypertension History of CVA (cerebrovascular accident) Transient ischemic attack (TIA), 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 deficits Atrial fibrillation, unspecified type (HCC) RSV (respiratory syncytial virus pneumonia)- Primary Pneumonia due to respiratory syncytial virus Bronchiectasis without complication (HCC) Bronchiectasis without acute exacerbation Pancreatic adenocarcinoma (HCC) Malignant 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, part unspecified Type 2 diabetes mellitus with hyperglycemia, with long-term current use of insulin (HCC) Primary hypertension Unspecified essential hypertension 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) Malignant neoplasm of head of pancreas [facility] Diagnosis Primary hypertension- Primary Unspecified essential hypertension History of CVA (cerebrovascular accident) Transient ischemic attack (TIA), 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 deficits Atrial fibrillation, unspecified type (HCC) Pancreatic adenocarcinoma (HCC)- Primary Malignant 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, part unspecified documented in this encounter [facility] note* Diagnosis Primary hypertension- Primary Unspecified essential hypertension History of CVA (cerebrovascular accident) Transient ischemic attack (TIA), 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 deficits Atrial fibrillation, unspecified type (HCC) RUQ pain- Primary Abdominal pain, right upper quadrant documented in this encounter [facility] note* Diagnosis Primary hypertension- Primary Unspecified essential hypertension History of CVA (cerebrovascular accident) Transient ischemic attack (TIA), 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 deficits Atrial fibrillation, unspecified type (HCC) Atrial fibrillation, unspecified type (HCC)- Primary History of CVA (cerebrovascular accident) Transient ischemic attack (TIA), 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 deficits Primary hypertension Unspecified essential hypertension Hyperlipidemia, unspecified hyperlipidemia type Bronchiectasis without complication (HCC) Bronchiectasis without acute exacerbation Gastroesophageal reflux disease without esophagitis Esophageal reflux 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) 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 Long-term (current) use of anticoagulants Type 2 diabetes mellitus with hyperglycemia, with long-term current use of insulin (HCC) documented in this encounter [facility] note* Diagnosis Primary hypertension- Primary Unspecified essential hypertension History of CVA (cerebrovascular accident) Transient ischemic attack (TIA), 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 deficits Atrial fibrillation, unspecified type (HCC) Type 2 diabetes mellitus without complication, without long-term current use of insulin (HCC) documented in this encounter [facility] note* Diagnosis Primary hypertension- Primary Unspecified essential hypertension History of CVA (cerebrovascular accident) Transient ischemic attack (TIA), 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 deficits Atrial fibrillation, unspecified type (HCC) Primary hypertension Unspecified essential hypertension Type 2 diabetes mellitus without complication, without long-term current use of insulin (HCC) documented in this encounter [facility] note* Diagnosis Primary hypertension- Primary Unspecified essential hypertension History of CVA (cerebrovascular accident) Transient ischemic attack (TIA), 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 deficits Atrial fibrillation, unspecified type (HCC) History of CVA (cerebrovascular accident) Transient ischemic attack (TIA), 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 deficits Type 2 diabetes mellitus with hyperglycemia, with long-term current use of insulin (HCC) [facility]* Diagnosis Primary hypertension- Primary Unspecified essential hypertension History of CVA (cerebrovascular accident) Transient ischemic attack (TIA), 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 deficits Atrial fibrillation, unspecified type (HCC) 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)- Primary Malignant neoplasm of head of pancreas Adenocarcinoma of head of pancreas (HCC) [facility] Diagnosis Primary hypertension- Primary Unspecified essential hypertension History of CVA (cerebrovascular accident) Transient ischemic attack (TIA), 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 deficits Atrial fibrillation, unspecified type (HCC) 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) Malignant neoplasm of head of pancreas Adenocarcinoma of head of pancreas (HCC) [facility] Additional Instructions Your work-up today showed no signs of endorgan damage which is damage to your brain heart or kidneys from the elevated blood pressure. Continue all of your medications as previously directed and follow-up with your family doctor [facility] Work Phone: Reason for referral (narrative)* Outpatient Procedure (Routine) - Authorized Specialty Diagnoses / Procedures Referred By Kelli bass Referred To Contact [facility] Diagnoses Change in bowel habits Procedures COLONOSCOPY DIAGNOSTIC COLONOSCOPY DIAGNOSTIC COLONOSCOPY DIAGNOSTIC COLONOSCOPY FLX DX W/COLLJ SPEC WHEN PFRMD Monet Calvo MD [address] [place] [address] [facility] [address] [place] [address] Referral ID Status Reason Start Date Expiration Date Visits Requested Visits Authorized [id number] Authorized Auto-Generat ed Referral 09/05/2022 09/05/2023 1 1 [facility] for referral (narrative)* Outpatient Procedure (Routine) - Authorized Specialty Diagnoses / Procedures Referred By Contjosh t Referred To Contact [facility] Diagnoses Mild intermittent asthma without complication Procedures LUNG DIFFUSION CAPACITY (DLCO) DIFFUSING CAPACITY Henok Martinez MD [address] [place] [address] [facility] [place] [address] [place] [address] Referral ID Status Reason Start Date Expiration Date Visits Requested Visits Authorized [id number] Authorized Auto-Generat ed Referral 10/01/2022 10/31/2023 1 1 * Outpatient Procedure (Routine) - Authorized Specialty Diagnoses / Procedures Referred By Contac t Referred To Contact [facility] Diagnoses Mild intermittent asthma without complication Procedures LUNG VOLUMES Henok Martinez MD [address] [place] [address] [address] Referral ID Status Reason Start Date Expiration Date Visits Requested Visits Authorized [id number] Authorized Auto-Generat ed Referral 10/01/2022 10/31/2023 1 1 * Outpatient Procedure (Routine) - Authorized Specialty Diagnoses / Procedures Referred By Contac t Referred To Contact [facility] Diagnoses Mild intermittent asthma without complication Procedures SPIROMETRY - BASELINE AND POST DILATOR BRNCDILAT RSPSE SPMTRY PRE&POST-BRNCDILAT ADMN Henok Martinez MD [address] [place] [address] [address] Referral ID Status Reason Start Date Expiration Date Visits Requested Visits Authorized [id number] Authorized Auto-Generat ed Referral 10/01/2022 10/31/2023 1 1 [facility] Diagnostic Procedure Only (Routine) - Authorized Specialty Diagnoses / Procedures Referred By Contac t Referred To Contact XR IMAGING Diagnoses Rib pain on right side Procedures XR RIBS/CHEST 3V AP RIB/OBLS/CXR RIGHT RADEX RIBS UNI W/POSTEROANT CH MINIMUM 3 VIEWS Nancy Medley MD [address] [place] [address] Xr Imaging [id number] Referral ID Status Reason Start Date Expiration Date Visits Requested Visits Authorized [id number] Authorized Auto-Generat ed Referral 06/05/2024 07/05/2025 1 1 [facility] for referral (narrative)* Diagnostic Procedure Only (Routine) - Closed Specialty Diagnoses / Procedures Referred By Contac t Referred To Contact XR IMAGING Diagnoses Rib pain on right side Procedures XR RIBS/CHEST 3V AP RIB/OBLS/CXR RIGHT RADEX RIBS UNI W/POSTEROANT CH MINIMUM 3 VIEWS Nancy Medley MD [address] [place] [address] [place] [address] Referral ID Status Reason Start Date Expiration Date V isits Requested Visits Authorized [id number] Closed Auto-Generate d Referral 06/05/2024 07/05/2025 1 1 [facility] for referral (narrative)* Diagnostic Procedure Only (Routine) - Authorized Specialty Diagnoses / Procedures Referred By Contac t Referred To Contact XR IMAGING Diagnoses Oropharyngeal dysphagia Procedures XR MODIFIED BARIUM SWALLOW W SPEECH THERAPY XR MODIFIED BARIUM SWALLOW W SPEECH THERAPY RADIOLOGIC EXAM SWALLOW FUNCTION CONTRAST STUDY Virginia Reina APRN.CNP [address] [place] [address] [place] [address] Referral ID Status Reason Start Date Expiration Date Visits Requested Visits Authorized [id number] Authorized Auto-Generat ed Referral 11/12/2025 1 1 [facility] for referral (narrative)* Diagnostic Procedure Only (Routine) - Closed Specialty Diagnoses / Procedures Referred By Contac t Referred To Contact XR IMAGING Diagnoses Oropharyngeal dysphagia Procedures XR MODIFIED BARIUM SWALLOW W SPEECH THERAPY XR MODIFIED BARIUM SWALLOW W SPEECH THERAPY RADIOLOGIC EXAM SWALLOW FUNCTION CONTRAST STUDY Virginia Reina APRN.CNP [address] [place] [address] [place] [address] Referral ID Status Reason Start Date Expiration Date V isits Requested Visits Authorized [id number] Closed Auto-Generate d Referral 10/13/2024 11/12/2025 1 1 [facility] for referral (narrative)No reason for referral information availableWBerger Hospital Work Phone: [facility] Narrative* Diagnostic Procedure Only (Routine) - Closed Specialty Diagnoses / Procedures Referred By Contac t Referred To Contact XR IMAGING Diagnoses Rib pain on right side Procedures XR RIBS/CHEST 3V AP RIB/OBLS/CXR RIGHT RADEX RIBS UNI W/POSTEROANT CH MINIMUM 3 VIEWS Nancy Medley MD [address] [facility] [place] [address] [place] [address] Referral ID Status Reason Start Date Expiration Date V isits Requested Visits Authorized [id number] Closed Auto-Generate d Referral 06/05/2024 07/05/2025 1 1 [facility] for visit Narrative* Diagnostic Procedure Only (Routine) - Closed Specialty Diagnoses / Procedures Referred By Contac t Referred To Contact XR IMAGING Diagnoses Oropharyngeal dysphagia Procedures XR MODIFIED BARIUM SWALLOW W SPEECH THERAPY XR MODIFIED BARIUM SWALLOW W SPEECH THERAPY RADIOLOGIC EXAM SWALLOW FUNCTION CONTRAST STUDY Virginia Reina APRN.CNP [address] [place] [address] [place] [address] Referral ID Status Reason Start Date Expiration Date V isits Requested Visits Authorized [id number] Closed Auto-Generate d Referral 10/13/2024 11/12/2025 1 1 [facility] for visit Narrative* Diagnostic Procedure Only (Routine) - Closed Specialty Diagnoses / Procedures Referred By Contac t Referred To Contact US IMAGING Diagnoses Epigastric pain Elevated lipase Procedures US ABD RIGHT UPPER QUADRANT US ABDOMINAL REAL TIME W/IMAGE LIMITED Henok Martinez MD [address] [place] [address] [place] [address] Referral ID Status Reason Start Date Expiration Date V isits Requested Visits Authorized [id number] Closed Auto-Generate d Referral 11/06/202412/0612/06/2025 1 1 [facility]* MRI/CT (Routine) - Closed Specialty Diagnoses / Procedures Referred By Contac t Referred To Contact CT IMAGING Diagnoses 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) Adenocarcinoma of head of pancreas (HCC) Procedures CT CHEST W IVCON DIAGNOSTIC COMPUTED TOMOGRAPHY THORAX W/CONTRAST Juan Miguel Yusuf MD [address] [place] [address] Phone: tel: [facility] [place] [address] Referral ID Status Reason Start Date Expiration Date V isits Requested Visits Authorized [id number] Closed Auto-Generate d Referral 05/25/2025 06/24/2026 1 1 [facility] Reason for Referral Specialty Diagnoses / Procedures Referred By Contac t Referred To Contact Pulmonary and Critical Care Medicine Diagnoses Cough, unspecified type Procedures CONSULT TO PULM/CRITICAL CARE OFFICE/OUTPATIENT [facility] 60-74 MINUTES Henok Martinez MD [address] [place] [address] Referral ID Status Reason Start Date Expiration Date Visits Requested Visits Authorized [id number] Authorized PCP Requested Referral 2 10/26/2023 1 1 Specialty Diagnoses / Procedures Referred By Contac t Referred To Contact CT IMAGING Diagnoses Chronic cough Abnormal chest x-ray Procedures CT CHEST WO IVCON DIAGNOSTIC COMPUTED TOMOGRAPHY THORAX W/O CNTRST Nancy Medley MD [address] [place] [address] Ct Imaging Referral ID Status Reason Start Date Expiration Date Visits Requested Visits Authorized [id number] Authorized Auto-Generat ed Referral 11/16/2022 12/16/2023 1 1 Specialty Diagnoses / Procedures Referred By Contac t Referred To Contact [facility] Diagnoses Chronic cough Procedures NITRIC OXIDE, EXHALED NITRIC OXIDE GAS DETERMINATION Nancy Medley MD [address] [facility] [place] [address] [facility] [place] [address] [place] [address] Referral ID Status Reason Start Date Expiration Date V isits Requested Visits Authorized [id number] Closed Auto-Generate d Referral 11/16/2022 12/16/2023 1 1 Specialty Diagnoses / Procedures Referred By Contac t Referred To Contact Cardiology Diagnoses Atrial myxoma Procedures CONSULT TO CARDIOLOGY OFFICE/OUTPATIENT [facility] 60-74 MINUTES Henok Martinez MD [address] [place] [address] Referral ID Status Reason Start Date Expiration Date Visits Requested Visits Authorized [id number] Authorized PCP Requested Referral 01/25/2023 01/25/2024 1 1 Specialty Diagnoses / Procedures Referred By Contac t Referred To Contact Gynecology Diagnoses History of uterine cancer Procedures CONSULT TO GYNECOLOGY OFFICE/OUTPATIENT [facility] 60-[place] [address] [place] [address] Referral ID Status Reason Start Date Expiration Date Visits Requested Visits Authorized [id number] Authorized PCP Requested Referral Auto-Generate d Referral 01/25/2023 01/25/2024 1 1 Specialty Diagnoses / Procedures Referred By Contac t Referred To Contact Ophthalmology Diagnoses Type 2 diabetes mellitus without complication, without long-term current use of insulin (HCC) Procedures CONSULT TO OPHTHALMOLOGY OFFICE/OUTPATIENT [facility] 60-74 MINUTES Henok Martinez MD [address] [place] [address] Referral ID Status Reason Start Date Expiration Date Visits Requested Visits Authorized [id number] Authorized PCP Requested Referral 01/25/2023 01/25/2024 1 1 Specialty Diagnoses / Procedures Referred By Contac t Referred To Contact Nutrition Diagnoses Type 2 diabetes mellitus without complication, without long-term current use of insulin (HCC) Procedures CONSULT TO NUTRITION THERAPY MEDICAL NUTRITION ASSMT&IVNTJ INDIV EACH 15 NE MEDICAL NUTRITION ASSMT&IVNTJ INDIV EACH 15 NE MEDICAL NUTRITION ASSMT&IVNTJ INDIV EACH 15 NE MEDICAL NUTRITION ASSMT&IVNTJ INDIV EACH 15 NE Henok Martinez MD [address] [place] [address] Referral ID Status Reason Start Date Expiration Date Visits Requested Visits Authorized [id number] Authorized PCP Requested Referral 01/25/2023 01/25/2024 1 1 Specialty Diagnoses / Procedures Referred By Contac t Referred To Contact CT IMAGING Diagnoses Pelvic and perineal pain Procedures CT PELVIS W IVCON CT PELVIS W/CONTRAST MATERIAL Sadia Ramsey, LEAD JAVA SOFTWARE ENGINEER.POLE INCISOR OPERATOR [address] [facility] [address] Ct Imaging Referral ID Status Reason Start Date Expiration Date Visits Requested Visits Authorized [id number] Authorized Auto-Generat ed Referral 02/08/2023 03/09/2024 1 1 Specialty Diagnoses / Procedures Referred By Contac t Referred To Contact CT IMAGING Diagnoses Pelvic and perineal pain Procedures CT PELVIS W IVCON CT PELVIS W/CONTRAST MATERIAL BraulioSadia carlson, LEAD JAVA SOFTWARE ENGINEER.POLE INCISOR OPERATOR [address] [facility] [address] [place] [address] Referral ID Status Reason Start Date Expiration Date V isits Requested Visits Authorized [id number] Closed Auto-Generate d Referral 02/08/2023 03/09/2024 1 1 Specialty Diagnoses / Procedures Referred By Contac t Referred To Contact CT IMAGING Diagnoses Chronic cough Abnormal chest x-ray Procedures CT CHEST WO IVCON DIAGNOSTIC COMPUTED TOMOGRAPHY THORAX W/O CNTRSNancy Davies MD [address] [facility] [address] [place] [address] Referral ID Status Reason Start Date Expiration Date V isits Requested Visits Authorized [id number] Closed Auto-Generate d Referral 11/16/2022 12/16/2023 1 1 Specialty Diagnoses / Procedures Referred By Contac t Referred To Contact Ent - Otolaryngology Diagnoses Pill dysphagia Left ear pain Procedures CONSULT TO ENT OFFICE/OUTPATIENT [facility] 60-74 MINUTES Taco Muller PA-C [address] [place] [address] Referral ID Status Reason Start Date Expiration Date Visits Requested Visits Authorized [id number] Authorized PCP Requested Referral 09/05/2023 09/04/2024 1 1 Specialty Diagnoses / Procedures Referred By Contac t Referred To Contact Endocrinology Diagnoses Type 2 diabetes mellitus without complication, without long-term current use of insulin (HCC) Procedures CONSULT TO ENDOCRINOLOGY OFFICE/OUTPATIENT [facility] 60 MINUTES Henok Martinez MD [address] [place] [address] Referral ID Status Reason Start Date Expiration Date Visits Requested Visits Authorized [id number] Authorized PCP Requested Referral 03/05/2024 03/05/2025 1 1 Specialty Diagnoses / Procedures Referred By Contac t Referred To Contact [facility] Diagnoses Cervical radicular pain Procedures CONSULT TO PHYSICAL THERAPY PHYSICAL THERAPY EVALUATION HIGH COMPLEX 45 MINS Henok Martinez MD [address] [place] [address] [facility] [place] [address] [place] [address] Referral ID Status Reason Start Date Expiration Date Visits Requested Visits Authorized [id number] Authorized PCP Requested Referral Auto-Generate d Referral 07/01/2024 07/01/2025 99 99 Specialty Diagnoses / Procedures Referred By Contac t Referred To Contact Pulmonary and Critical Care Medicine Diagnoses Hemoptysis Procedures CONSULT TO PULM/CRITICAL CARE OFFICE/OUTPATIENT [facility] 60 MINUTES Henok Martinez MD [address] [place] [address] Referral ID Status Reason Start Date Expiration Date Visits Requested Visits Authorized [id number] Authorized PCP Requested Referral 11/04/2024 11/04/2025 1 1 Specialty Diagnoses / Procedures Referred By Contac t Referred To Contact US IMAGING Diagnoses Epigastric pain Procedures US ABD RIGHT UPPER QUADRANT US ABDOMINAL REAL TIME W/IMAGE LIMITED Henok Martinez MD [address] [place] [address] [place] [address] Referral ID Status Reason Start Date Expiration Date Visits Requested Visits Authorized [id number] Authorized Auto-Generat ed Referral 11/04/2024 12/04/2025 1 1 Referral ID Status Reason Start Date Expiration Date Visits Requested Visits Authorized [id number] Authorized PCP Requested Referral 11/06/2024 11/06/2025 1 1 Specialty Diagnoses / Procedures Referred By Contac t Referred To Contact US IMAGING Diagnoses Epigastric pain Elevated lipase Procedures US ABD RIGHT UPPER QUADRANT US ABDOMINAL REAL TIME W/IMAGE LIMITED Henok Martinez MD [address] [place] [address] [facility] [address] Referral ID Status Reason Start Date Expiration Date V isits Requested Visits Authorized [id number] Closed Auto-Generate d Referral 11/06/2024 12/06/2025 1 1 Medications Administered Section Active Administered Medications - up to 3 most recent administrations Medication Order MAR Action Action Date Dose Rate Site PHENYLephrine 2.5 % 1 Drop (AK-DILATE, BANDAR-SYNEPHRINE) 1 Drop, BOTH EYES, DIRECTED, Starting on Sat02/15/23 at 1630, Until 02/16/23 at 0429, Administer for dilation PROTECT FROM LIGHT Given 02/15/2023 4:01 PM EDT 1 Drop proparacaine 0.5 % 1 Drop (ALCAINE) 1 Drop, BOTH EYES, DIRECTED, Starting on Sat02/15/23 at 1630, Until 02/16/23 at 0429, Administer for pneumo tonometry, tonopen tonometry, or pachymetry. In the event of a proparacaine shortage, administer tetracaine 0.5% ophthalmic drops 1 drop in the left eye as directed for pneumo tonometry, tonopen tonometry, or pachymetry Given 02/15/2023 4:01 PM EDT 1 Drop tropicamide 1 % 1 Drop (MYDRIACYL) 1 Drop, BOTH EYES, DIRECTED, Starting on Sat02/15/23 at 1630, Until 02/16/23 at 0429, Administer for dilation Given 02/15/2023 4:01 PM EDT 1 Drop Chief Complaint and Reason for Visit Chief Complaint 1 Y FU Reason for Visit Atrial fibrillation Chest pain Essential hypertension Right atrial mass Chief Complaint 1 Y FU CHEST PAIN CP Reason for Visit Atrial fibrillation Chest pain Essential hypertension Right atrial mass Chief Complaint 1 Y FU CHEST PAIN CP HTN Reason for Visit Atrial fibrillation Chest pain Essential hypertension Right atrial mass Chief Complaint 1 Y FU CHEST PAIN CP HTN HIGH BP HTN Reason for Visit Atrial fibrillation Chest pain Essential hypertension Right atrial mass Chief Complaint STROKE EORDER wound check Transient cerebral ischemic attack, unspecified Reason for Visit History of TIA (eddy sient ischemic attack) Mild cognitive impairment Transient ischemic attack Chief Complaint 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 RX HERE Novembe r 2023 3:30pm YELLOWING OF SKIN, EYE, URINE December 12:57am Reason for Visit Admit Date Atrial fibrillation January 10, 2025 12: 57am Elevated lipase January 10, 2025 12: 57am H/O: hysterectomy January 10, 2025 12: 57am History of uterine cancer January 10 12:57am Hyperbilirubinemia January 10, 2025 12: 57am Jaundice January 10, 2025 12: 57am Mass of head of pancreas January 10 12:57am Overweight (BMI 25.0-29.9) January 10, 025 12:57am Transaminitis January 10, 2025 12: 57am Type 2 diabetes mellitus with hyperglyce keiry January 10, 2025 12:57am Chief Complaint Admit Date CERVICAL RADICULAR PAIN. RX HERE Novembe r 2023 3:30pm YELLOWING OF SKIN, EYE, URINE December 2:16am YELLOWING OF SKIN, EYE, URINE December 3:34pm YELLOWING OF SKIN, EYE, URINE December 8:13pm YELLOWING OF SKIN, EYE, URINE December 12:00pm YELLOWING OF SKIN, EYE, URINE December 5:00pm YELLOWING OF SKIN, EYE, URINE December 9:36am YELLOWING OF SKIN, EYE, URINE December 8:21am Reason for Visit Admit Date Atrial fibrillation January 10, 2025 2:1 6am Elevated lipase January 10, 2025 2:1 6am H/O: hysterectomy January 10, 2025 2:1 6am History of uterine cancer January 10 2:16am Hyperbilirubinemia January 10, 2025 2:1 6am Jaundice January 10, 2025 2:1 6am Mass of head of pancreas January 10 2:16am Overweight (BMI 25.0-29.9) January 10, 2 025 2:16am Pancreatic mass January 10, 2025 2:1 6am Transaminitis January 10, 2025 2:1 6am Type 2 diabetes mellitus with hyperglyce keiry January 10, 2025 2:16am Family History Relationship Condition Age at Onset Recorded Date/T emmie mother Malignant 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 Unknown Coronary artery disease Unknown father Malignant neoplasm Unknown brother Parkinson's disease Unknown Advance Directives Date Activated Date Inactivated Comments 02/10/2025 9:34 PM 02/14/2025 5:41 PM Question Answer Comments Full Code Order Discussed With: Patient Date Activated Date Inactivated Comments 01/15/2025 2:04 AM 01/23/2025 7:02 PM Question Answer Comments Full Code Order Discussed With: Patient Date Activated Date Inactivated Comments 02/10/2025 9:34 PM Date Activated Date Inactivated Comments 01/15/2025 2:04 AM 01/23/2025 7:02 PM Advance Directive Response Recorded Date/ Time Living Will No August 20 1:38pm Power of Crosstie Inspector No August 20, 2021 1:38pm Advance Directive Response Recorded Date/ Time Advance Directives No March 18 11:33am Living Will No March 18, 2023 1 1:33am Power of Crosstie Inspector No March 18, 2023 11:33am Advance Directive Response Recorded Date/ Time Advance Directives No March 18 11:33am Living Will No March 30, 2023 9 :37pm Power of Crosstie Inspector No March 30, 2023 9:37pm Advance Directive Response Recorded Date/ Time Advance Directives No March 18 11:33am Living Will No April 22, 2023 5:09pm Power of Crosstie Inspector No April 22 5:09pm Advance Directive Response Recorded Date/ Time Advance Directives No March 18 10:33am Living Will No July 30 3:22pm Power of Crosstie Inspector No July 30, 2 023 3:22pm Advance Directive Response Recorded Date/ Time Advance Directives No March 18 11:33am Living Will No February 25, 2024 3:15pm Power of Crosstie Inspector No February 24 3:15pm Date Activated Date Inactivated Comments 01/15/2025 2:04 AM Date Activated Date Inactivated Comments 01/15/2025 2:04 AM Question Answer Comments Full Code Order Discussed With: Patient Advance Directive Response Recorded Date/ Time Living Will No June 25 3:46pm Power of Crosstie Inspector No June 25, 024 3:46pm Living Will No January 09, 2025 6:51pm Power of Crosstie Inspector No January 09 6:51pm Advance Directives No March 18 11:33am Advance Directive Response Recorded Date/ Time Living Will No June 25 3:46pm Do you have a Healthcare Power of Crosstie Inspector? No June 25, 2024 3:46pm Living Will No January 10, 2025 2:58am Do you have a Healthcare Power of Crosstie Inspector? No January 10, 2025 2:58am Advance Directives No March 18 11:33am Date Activated Date Inactivated Comments 01/15/2025 2:04 AM 01/23/2025 7:02 PM Date Activated Date Inactivated Comments 02/10/2025 9:34 PM 02/14/2025 5:41 PM Date Activated Date Inactivated Comments 01/15/2025 2:04 AM 01/23/2025 7:02 PM Question Answer Comments Full Code Order Discussed With: Patient Summary Purpose Additional Source Comments Source Comments (unrecognize d section and content) In the event this informatio n is protected by the Federal Confidentiality of Alcohol and Drug Abuse Patient Records regulations: The Federal rules restrict any use of the information to criminally investigate or prosecute any alcohol or drug abuse patient.[facility]In the event this information is protected by the Federal Confidentiality of Alcohol and Drug Abuse Patient Records regulations: The Federal rules restrict any use of the information to criminally investigate or prosecute any alcohol or drug abuse patient.[facility] CampusIn the event this information is protected by the Federal Confidentiality of Alcohol and Drug Abuse Patient Records regulations: The Federal rules restrict any use of the information to criminally investigate or prosecute any alcohol or drug abuse patient.[facility] CampusIn the event this information is protected by the Federal Confidentiality of Alcohol and Drug Abuse Patient Records regulations: The Federal rules restrict any use of the information to criminally investigate or prosecute any alcohol or drug abuse patient.[facility] CampusIn the event this information is protected by the Federal Confidentiality of Alcohol and Drug Abuse Patient Records regulations: The Federal rules restrict any use of the information to criminally investigate or prosecute any alcohol or drug abuse patient.[facility] CampusIn the event this information is protected by the Federal Confidentiality of Alcohol and Drug Abuse Patient Records regulations: The Federal rules restrict any use of the information to criminally investigate or prosecute any alcohol or drug abuse patient.[facility] CampusIn the event this information is protected by the Federal Confidentiality of Alcohol and Drug Abuse Patient Records regulations: The Federal rules restrict any use of the information to criminally investigate or prosecute any alcohol or drug abuse patient.[facility] CampusIn the event this information is protected by the Federal Confidentiality of Alcohol and Drug Abuse Patient Records regulations: The Federal rules restrict any use of the information to criminally investigate or prosecute any alcohol or drug abuse patient.[facility] CampusIn the event this information is protected by the Federal Confidentiality of Alcohol and Drug Abuse Patient Records regulations: The Federal rules restrict any use of the information to criminally investigate or prosecute any alcohol or drug abuse patient.[facility] CampusIn the event this information is protected by the Federal Confidentiality of Alcohol and Drug Abuse Patient Records regulations: The Federal rules restrict any use of the information to criminally investigate or prosecute any alcohol or drug abuse patient.[facility] CampusIn the event this information is protected by the Federal Confidentiality of Alcohol and Drug Abuse Patient Records regulations: The Federal rules restrict any use of the information to criminally investigate or prosecute any alcohol or drug abuse patient.[facility] CampusIn the event this information is protected by the Federal Confidentiality of Alcohol and Drug Abuse Patient Records regulations: The Federal rules restrict any use of the information to criminally investigate or prosecute any alcohol or drug abuse patient.[facility] CampusIn the event this information is protected by the Federal Confidentiality of Alcohol and Drug Abuse Patient Records regulations: The Federal rules restrict any use of the information to criminally investigate or prosecute any alcohol or drug abuse patient.[facility] CampusIn the event this information is protected by the Federal Confidentiality of Alcohol and Drug Abuse Patient Records regulations: The Federal rules restrict any use of the information to criminally investigate or prosecute any alcohol or drug abuse patient.[facility] CampusIn the event this information is protected by the Federal Confidentiality of Alcohol and Drug Abuse Patient Records regulations: The Federal rules restrict any use of the information to criminally investigate or prosecute any alcohol or drug abuse patient.[facility] CampusIn the event this information is protected by the Federal Confidentiality of Alcohol and Drug Abuse Patient Records regulations: The Federal rules restrict any use of the information to criminally investigate or prosecute any alcohol or drug abuse patient.[facility] CampusIn the event this information is protected by the Federal Confidentiality of Alcohol and Drug Abuse Patient Records regulations: The Federal rules restrict any use of the information to criminally investigate or prosecute any alcohol or drug abuse patient.[facility] CampusIn the event this information is protected by the Federal Confidentiality of Alcohol and Drug Abuse Patient Records regulations: The Federal rules restrict any use of the information to criminally investigate or prosecute any alcohol or drug abuse patient.[facility] CampusIn the event this information is protected by the Federal Confidentiality of Alcohol and Drug Abuse Patient Records regulations: The Federal rules restrict any use of the information to criminally investigate or prosecute any alcohol or drug abuse patient.[facility] CampusIn the event this information is protected by the Federal Confidentiality of Alcohol and Drug Abuse Patient Records regulations: The Federal rules restrict any use of the information to criminally investigate or prosecute any alcohol or drug abuse patient.[facility] CampusIn the event this information is protected by the Federal Confidentiality of Alcohol and Drug Abuse Patient Records regulations: The Federal rules restrict any use of the information to criminally investigate or prosecute any alcohol or drug abuse patient.[facility] CampusIn the event this information is protected by the Federal Confidentiality of Alcohol and Drug Abuse Patient Records regulations: The Federal rules restrict any use of the information to criminally investigate or prosecute any alcohol or drug abuse patient.[facility] CampusIn the event this information is protected by the Federal Confidentiality of Alcohol and Drug Abuse Patient Records regulations: The Federal rules restrict any use of the information to criminally investigate or prosecute any alcohol or drug abuse patient.[facility] CampusIn the event this information is protected by the Federal Confidentiality of Alcohol and Drug Abuse Patient Records regulations: The Federal rules restrict any use of the information to criminally investigate or prosecute any alcohol or drug abuse patient.[facility] CampusIn the event this information is protected by the Federal Confidentiality of Alcohol and Drug Abuse Patient Records regulations: The Federal rules restrict any use of the information to criminally investigate or prosecute any alcohol or drug abuse patient.[facility] CampusIn the event this information is protected by the Federal Confidentiality of Alcohol and Drug Abuse Patient Records regulations: The Federal rules restrict any use of the information to criminally investigate or prosecute any alcohol or drug abuse patient.[facility] CampusIn the event this information is protected by the Federal Confidentiality of Alcohol and Drug Abuse Patient Records regulations: The Federal rules restrict any use of the information to criminally investigate or prosecute any alcohol or drug abuse patient.[facility] CampusIn the event this information is protected by the Federal Confidentiality of Alcohol and Drug Abuse Patient Records regulations: The Federal rules restrict any use of the information to criminally investigate or prosecute any alcohol or drug abuse patient.[facility] CampusIn the event this information is protected by the Federal Confidentiality of Alcohol and Drug Abuse Patient Records regulations: The Federal rules restrict any use of the information to criminally investigate or prosecute any alcohol or drug abuse patient.[facility] CampusIn the event this information is protected by the Federal Confidentiality of Alcohol and Drug Abuse Patient Records regulations: The Federal rules restrict any use of the information to criminally investigate or prosecute any alcohol or drug abuse patient.[facility] CampusIn the event this information is protected by the Federal Confidentiality of Alcohol and Drug Abuse Patient Records regulations: The Federal rules restrict any use of the information to criminally investigate or prosecute any alcohol or drug abuse patient.[facility] CampusIn the event this information is protected by the Federal Confidentiality of Alcohol and Drug Abuse Patient Records regulations: The Federal rules restrict any use of the information to criminally investigate or prosecute any alcohol or drug abuse patient.[facility] CampusIn the event this information is protected by the Federal Confidentiality of Alcohol and Drug Abuse Patient Records regulations: The Federal rules restrict any use of the information to criminally investigate or prosecute any alcohol or drug abuse patient.[facility] CampusIn the event this information is protected by the Federal Confidentiality of Alcohol and Drug Abuse Patient Records regulations: The Federal rules restrict any use of the information to criminally investigate or prosecute any alcohol or drug abuse patient.[facility] CampusIn the event this information is protected by the Federal Confidentiality of Alcohol and Drug Abuse Patient Records regulations: The Federal rules restrict any use of the information to criminally investigate or prosecute any alcohol or drug abuse patient.[facility] CampusIn the event this information is protected by the Federal Confidentiality of Alcohol and Drug Abuse Patient Records regulations: The Federal rules restrict any use of the information to criminally investigate or prosecute any alcohol or drug abuse patient.[facility] CampusIn the event this information is protected by the Federal Confidentiality of Alcohol and Drug Abuse Patient Records regulations: The Federal rules restrict any use of the information to criminally investigate or prosecute any alcohol or drug abuse patient.[facility] CampusIn the event this information is protected by the Federal Confidentiality of Alcohol and Drug Abuse Patient Records regulations: The Federal rules restrict any use of the information to criminally investigate or prosecute any alcohol or drug abuse patient.[facility] CampusIn the event this information is protected by the Federal Confidentiality of Alcohol and Drug Abuse Patient Records regulations: The Federal rules restrict any use of the information to criminally investigate or prosecute any alcohol or drug abuse patient.[facility] CampusIn the event this information is protected by the Federal Confidentiality of Alcohol and Drug Abuse Patient Records regulations: The Federal rules restrict any use of the information to criminally investigate or prosecute any alcohol or drug abuse patient.[facility] CampusIn the event this information is protected by the Federal Confidentiality of Alcohol and Drug Abuse Patient Records regulations: The Federal rules restrict any use of the information to criminally investigate or prosecute any alcohol or drug abuse patient.[facility] CampusIn the event this information is protected by the Federal Confidentiality of Alcohol and Drug Abuse Patient Records regulations: The Federal rules restrict any use of the information to criminally investigate or prosecute any alcohol or drug abuse patient.[facility] CampusIn the event this information is protected by the Federal Confidentiality of Alcohol and Drug Abuse Patient Records regulations: The Federal rules restrict any use of the information to criminally investigate or prosecute any alcohol or drug abuse patient.[facility] CampusIn the event this information is protected by the Federal Confidentiality of Alcohol and Drug Abuse Patient Records regulations: The Federal rules restrict any use of the information to criminally investigate or prosecute any alcohol or drug abuse patient.[facility] CampusIn the event this information is protected by the Federal Confidentiality of Alcohol and Drug Abuse Patient Records regulations: The Federal rules restrict any use of the information to criminally investigate or prosecute any alcohol or drug abuse patient.[facility] CampusIn the event this information is protected by the Federal Confidentiality of Alcohol and Drug Abuse Patient Records regulations: The Federal rules restrict any use of the information to criminally investigate or prosecute any alcohol or drug abuse patient.[facility] CampusIn the event this information is protected by the Federal Confidentiality of Alcohol and Drug Abuse Patient Records regulations: The Federal rules restrict any use of the information to criminally investigate or prosecute any alcohol or drug abuse patient.[facility] CampusIn the event this information is protected by the Federal Confidentiality of Alcohol and Drug Abuse Patient Records regulations: The Federal rules restrict any use of the information to criminally investigate or prosecute any alcohol or drug abuse patient.[facility] CampusIn the event this information is protected by the Federal Confidentiality of Alcohol and Drug Abuse Patient Records regulations: The Federal rules restrict any use of the information to criminally investigate or prosecute any alcohol or drug abuse patient.[facility] CampusIn the event this information is protected by the Federal Confidentiality of Alcohol and Drug Abuse Patient Records regulations: The Federal rules restrict any use of the information to criminally investigate or prosecute any alcohol or drug abuse patient.[facility] CampusIn the event this information is protected by the Federal Confidentiality of Alcohol and Drug Abuse Patient Records regulations: The Federal rules restrict any use of the information to criminally investigate or prosecute any alcohol or drug abuse patient.[facility] CampusIn the event this information is protected by the Federal Confidentiality of Alcohol and Drug Abuse Patient Records regulations: The Federal rules restrict any use of the information to criminally investigate or prosecute any alcohol or drug abuse patient.[facility] CampusIn the event this information is protected by the Federal Confidentiality of Alcohol and Drug Abuse Patient Records regulations: The Federal rules restrict any use of the information to criminally investigate or prosecute any alcohol or drug abuse patient.[facility] CampusIn the event this information is protected by the Federal Confidentiality of Alcohol and Drug Abuse Patient Records regulations: The Federal rules restrict any use of the information to criminally investigate or prosecute any alcohol or drug abuse patient.[facility] CampusIn the event this information is protected by the Federal Confidentiality of Alcohol and Drug Abuse Patient Records regulations: The Federal rules restrict any use of the information to criminally investigate or prosecute any alcohol or drug abuse patient.[facility] CampusIn the event this information is protected by the Federal Confidentiality of Alcohol and Drug Abuse Patient Records regulations: The Federal rules restrict any use of the information to criminally investigate or prosecute any alcohol or drug abuse patient.[facility] CampusIn the event this information is protected by the Federal Confidentiality of Alcohol and Drug Abuse Patient Records regulations: The Federal rules restrict any use of the information to criminally investigate or prosecute any alcohol or drug abuse patient.[facility] CampusIn the event this information is protected by the Federal Confidentiality of Alcohol and Drug Abuse Patient Records regulations: The Federal rules restrict any use of the information to criminally investigate or prosecute any alcohol or drug abuse patient.[facility] CampusIn the event this information is protected by the Federal Confidentiality of Alcohol and Drug Abuse Patient Records regulations: The Federal rules restrict any use of the information to criminally investigate or prosecute any alcohol or drug abuse patient.[facility] CampusIn the event this information is protected by the Federal Confidentiality of Alcohol and Drug Abuse Patient Records regulations: The Federal rules restrict any use of the information to criminally investigate or prosecute any alcohol or drug abuse patient.[facility] CampusIn the event this information is protected by the Federal Confidentiality of Alcohol and Drug Abuse Patient Records regulations: The Federal rules restrict any use of the information to criminally investigate or prosecute any alcohol or drug abuse patient.[facility] CampusIn the event this information is protected by the Federal Confidentiality of Alcohol and Drug Abuse Patient Records regulations: The Federal rules restrict any use of the information to criminally investigate or prosecute any alcohol or drug abuse patient.[facility] CampusIn the event this information is protected by the Federal Confidentiality of Alcohol and Drug Abuse Patient Records regulations: The Federal rules restrict any use of the information to criminally investigate or prosecute any alcohol or drug abuse patient.[facility] CampusIn the event this information is protected by the Federal Confidentiality of Alcohol and Drug Abuse Patient Records regulations: The Federal rules restrict any use of the information to criminally investigate or prosecute any alcohol or drug abuse patient.[facility] CampusIn the event this information is protected by the Federal Confidentiality of Alcohol and Drug Abuse Patient Records regulations: The Federal rules restrict any use of the information to criminally investigate or prosecute any alcohol or drug abuse patient.[facility] CampusIn the event this information is protected by the Federal Confidentiality of Alcohol and Drug Abuse Patient Records regulations: The Federal rules restrict any use of the information to criminally investigate or prosecute any alcohol or drug abuse patient.[facility] CampusIn the event this information is protected by the Federal Confidentiality of Alcohol and Drug Abuse Patient Records regulations: The Federal rules restrict any use of the information to criminally investigate or prosecute any alcohol or drug abuse patient.[facility] CampusIn the event this information is protected by the Federal Confidentiality of Alcohol and Drug Abuse Patient Records regulations: The Federal rules restrict any use of the information to criminally investigate or prosecute any alcohol or drug abuse patient.[facility] CampusIn the event this information is protected by the Federal Confidentiality of Alcohol and Drug Abuse Patient Records regulations: The Federal rules restrict any use of the information to criminally investigate or prosecute any alcohol or drug abuse patient.[facility] CampusIn the event this information is protected by the Federal Confidentiality of Alcohol and Drug Abuse Patient Records regulations: The Federal rules restrict any use of the information to criminally investigate or prosecute any alcohol or drug abuse patient.[facility] CampusIn the event this information is protected by the Federal Confidentiality of Alcohol and Drug Abuse Patient Records regulations: The Federal rules restrict any use of the information to criminally investigate or prosecute any alcohol or drug abuse patient.[facility] CampusIn the event this information is protected by the Federal Confidentiality of Alcohol and Drug Abuse Patient Records regulations: The Federal rules restrict any use of the information to criminally investigate or prosecute any alcohol or drug abuse patient.[facility] CampusIn the event this information is protected by the Federal Confidentiality of Alcohol and Drug Abuse Patient Records regulations: The Federal rules restrict any use of the information to criminally investigate or prosecute any alcohol or drug abuse patient.[facility] CampusIn the event this information is protected by the Federal Confidentiality of Alcohol and Drug Abuse Patient Records regulations: The Federal rules restrict any use of the information to criminally investigate or prosecute any alcohol or drug abuse patient.[facility] CampusIn the event this information is protected by the Federal Confidentiality of Alcohol and Drug Abuse Patient Records regulations: The Federal rules restrict any use of the information to criminally investigate or prosecute any alcohol or drug abuse patient.[facility] CampusIn the event this information is protected by the Federal Confidentiality of Alcohol and Drug Abuse Patient Records regulations: The Federal rules restrict any use of the information to criminally investigate or prosecute any alcohol or drug abuse patient.[facility] CampusIn the event this information is protected by the Federal Confidentiality of Alcohol and Drug Abuse Patient Records regulations: The Federal rules restrict any use of the information to criminally investigate or prosecute any alcohol or drug abuse patient.[facility] CampusIn the event this information is protected by the Federal Confidentiality of Alcohol and Drug Abuse Patient Records regulations: The Federal rules restrict any use of the information to criminally investigate or prosecute any alcohol or drug abuse patient.[facility] CampusIn the event this information is protected by the Federal Confidentiality of Alcohol and Drug Abuse Patient Records regulations: The Federal rules restrict any use of the information to criminally investigate or prosecute any alcohol or drug abuse patient.[facility] CampusIn the event this information is protected by the Federal Confidentiality of Alcohol and Drug Abuse Patient Records regulations: The Federal rules restrict any use of the information to criminally investigate or prosecute any alcohol or drug abuse patient.[facility] CampusIn the event this information is protected by the Federal Confidentiality of Alcohol and Drug Abuse Patient Records regulations: The Federal rules restrict any use of the information to criminally investigate or prosecute any alcohol or drug abuse patient.[facility] CampusIn the event this information is protected by the Federal Confidentiality of Alcohol and Drug Abuse Patient Records regulations: The Federal rules restrict any use of the information to criminally investigate or prosecute any alcohol or drug abuse patient.[facility] CampusIn the event this information is protected by the Federal Confidentiality of Alcohol and Drug Abuse Patient Records regulations: The Federal rules restrict any use of the information to criminally investigate or prosecute any alcohol or drug abuse patient.[facility] CampusIn the event this information is protected by the Federal Confidentiality of Alcohol and Drug Abuse Patient Records regulations: The Federal rules restrict any use of the information to criminally investigate or prosecute any alcohol or drug abuse patient.[facility] CampusIn the event this information is protected by the Federal Confidentiality of Alcohol and Drug Abuse Patient Records regulations: The Federal rules restrict any use of the information to criminally investigate or prosecute any alcohol or drug abuse patient.[facility] CampusIn the event this information is protected by the Federal Confidentiality of Alcohol and Drug Abuse Patient Records regulations: The Federal rules restrict any use of the information to criminally investigate or prosecute any alcohol or drug abuse patient.[facility] CampusIn the event this information is protected by the Federal Confidentiality of Alcohol and Drug Abuse Patient Records regulations: The Federal rules restrict any use of the information to criminally investigate or prosecute any alcohol or drug abuse patient.[facility] CampusIn the event this information is protected by the Federal Confidentiality of Alcohol and Drug Abuse Patient Records regulations: The Federal rules restrict any use of the information to criminally investigate or prosecute any alcohol or drug abuse patient.[facility] CampusIn the event this information is protected by the Federal Confidentiality of Alcohol and Drug Abuse Patient Records regulations: The Federal rules restrict any use of the information to criminally investigate or prosecute any alcohol or drug abuse patient.[facility] CampusIn the event this information is protected by the Federal Confidentiality of Alcohol and Drug Abuse Patient Records regulations: The Federal rules restrict any use of the information to criminally investigate or prosecute any alcohol or drug abuse patient.[facility] CampusIn the event this information is protected by the Federal Confidentiality of Alcohol and Drug Abuse Patient Records regulations: The Federal rules restrict any use of the information to criminally investigate or prosecute any alcohol or drug abuse patient.[facility] CampusIn the event this information is protected by the Federal Confidentiality of Alcohol and Drug Abuse Patient Records regulations: The Federal rules restrict any use of the information to criminally investigate or prosecute any alcohol or drug abuse patient.[facility] CampusIn the event this information is protected by the Federal Confidentiality of Alcohol and Drug Abuse Patient Records regulations: The Federal rules restrict any use of the information to criminally investigate or prosecute any alcohol or drug abuse patient.[facility] CampusIn the event this information is protected by the Federal Confidentiality of Alcohol and Drug Abuse Patient Records regulations: The Federal rules restrict any use of the information to criminally investigate or prosecute any alcohol or drug abuse patient.[facility] CampusIn the event this information is protected by the Federal Confidentiality of Alcohol and Drug Abuse Patient Records regulations: The Federal rules restrict any use of the information to criminally investigate or prosecute any alcohol or drug abuse patient.[facility] CampusIn the event this information is protected by the Federal Confidentiality of Alcohol and Drug Abuse Patient Records regulations: The Federal rules restrict any use of the information to criminally investigate or prosecute any alcohol or drug abuse patient.[facility] CampusIn the event this information is protected by the Federal Confidentiality of Alcohol and Drug Abuse Patient Records regulations: The Federal rules restrict any use of the information to criminally investigate or prosecute any alcohol or drug abuse patient.[facility] CampusIn the event this information is protected by the Federal Confidentiality of Alcohol and Drug Abuse Patient Records regulations: The Federal rules restrict any use of the information to criminally investigate or prosecute any alcohol or drug abuse patient.[facility] CampusIn the event this information is protected by the Federal Confidentiality of Alcohol and Drug Abuse Patient Records regulations: The Federal rules restrict any use of the information to criminally investigate or prosecute any alcohol or drug abuse patient.[facility] CampusIn the event this information is protected by the Federal Confidentiality of Alcohol and Drug Abuse Patient Records regulations: The Federal rules restrict any use of the information to criminally investigate or prosecute any alcohol or drug abuse patient.[facility] CampusIn the event this information is protected by the Federal Confidentiality of Alcohol and Drug Abuse Patient Records regulations: The Federal rules restrict any use of the information to criminally investigate or prosecute any alcohol or drug abuse patient.[facility] CampusIn the event this information is protected by the Federal Confidentiality of Alcohol and Drug Abuse Patient Records regulations: The Federal rules restrict any use of the information to criminally investigate or prosecute any alcohol or drug abuse patient.[facility] CampusIn the event this information is protected by the Federal Confidentiality of Alcohol and Drug Abuse Patient Records regulations: The Federal rules restrict any use of the information to criminally investigate or prosecute any alcohol or drug abuse patient.[facility] CampusIn the event this information is protected by the Federal Confidentiality of Alcohol and Drug Abuse Patient Records regulations: The Federal rules restrict any use of the information to criminally investigate or prosecute any alcohol or drug abuse patient.[facility] CampusIn the event this information is protected by the Federal Confidentiality of Alcohol and Drug Abuse Patient Records regulations: The Federal rules restrict any use of the information to criminally investigate or prosecute any alcohol or drug abuse patient.[facility] CampusIn the event this information is protected by the Federal Confidentiality of Alcohol and Drug Abuse Patient Records regulations: The Federal rules restrict any use of the information to criminally investigate or prosecute any alcohol or drug abuse patient.[facility] CampusIn the event this information is protected by the Federal Confidentiality of Alcohol and Drug Abuse Patient Records regulations: The Federal rules restrict any use of the information to criminally investigate or prosecute any alcohol or drug abuse patient.[facility] CampusIn the event this information is protected by the Federal Confidentiality of Alcohol and Drug Abuse Patient Records regulations: The Federal rules restrict any use of the information to criminally investigate or prosecute any alcohol or drug abuse patient.[facility] CampusIn the event this information is protected by the Federal Confidentiality of Alcohol and Drug Abuse Patient Records regulations: The Federal rules restrict any use of the information to criminally investigate or prosecute any alcohol or drug abuse patient.[facility] CampusIn the event this information is protected by the Federal Confidentiality of Alcohol and Drug Abuse Patient Records regulations: The Federal rules restrict any use of the information to criminally investigate or prosecute any alcohol or drug abuse patient.[facility] CampusIn the event this information is protected by the Federal Confidentiality of Alcohol and Drug Abuse Patient Records regulations: The Federal rules restrict any use of the information to criminally investigate or prosecute any alcohol or drug abuse patient.[facility] CampusIn the event this information is protected by the Federal Confidentiality of Alcohol and Drug Abuse Patient Records regulations: The Federal rules restrict any use of the information to criminally investigate or prosecute any alcohol or drug abuse patient.[facility] CampusIn the event this information is protected by the Federal Confidentiality of Alcohol and Drug Abuse Patient Records regulations: The Federal rules restrict any use of the information to criminally investigate or prosecute any alcohol or drug abuse patient.[facility] CampusIn the event this information is protected by the Federal Confidentiality of Alcohol and Drug Abuse Patient Records regulations: The Federal rules restrict any use of the information to criminally investigate or prosecute any alcohol or drug abuse patient.[facility] CampusIn the event this information is protected by the Federal Confidentiality of Alcohol and Drug Abuse Patient Records regulations: The Federal rules restrict any use of the information to criminally investigate or prosecute any alcohol or drug abuse patient.[facility] CampusIn the event this information is protected by the Federal Confidentiality of Alcohol and Drug Abuse Patient Records regulations: The Federal rules restrict any use of the information to criminally investigate or prosecute any alcohol or drug abuse patient.[facility] CampusIn the event this information is protected by the Federal Confidentiality of Alcohol and Drug Abuse Patient Records regulations: The Federal rules restrict any use of the information to criminally investigate or prosecute any alcohol or drug abuse patient.[facility] CampusIn the event this information is protected by the Federal Confidentiality of Alcohol and Drug Abuse Patient Records regulations: The Federal rules restrict any use of the information to criminally investigate or prosecute any alcohol or drug abuse patient.[facility] CampusIn the event this information is protected by the Federal Confidentiality of Alcohol and Drug Abuse Patient Records regulations: The Federal rules restrict any use of the information to criminally investigate or prosecute any alcohol or drug abuse patient.[facility] CampusIn the event this information is protected by the Federal Confidentiality of Alcohol and Drug Abuse Patient Records regulations: The Federal rules restrict any use of the information to criminally investigate or prosecute any alcohol or drug abuse patient.[facility] CampusIn the event this information is protected by the Federal Confidentiality of Alcohol and Drug Abuse Patient Records regulations: The Federal rules restrict any use of the information to criminally investigate or prosecute any alcohol or drug abuse patient.[facility] CampusIn the event this information is protected by the Federal Confidentiality of Alcohol and Drug Abuse Patient Records regulations: The Federal rules restrict any use of the information to criminally investigate or prosecute any alcohol or drug abuse patient.[facility] CampusIn the event this information is protected by the Federal Confidentiality of Alcohol and Drug Abuse Patient Records regulations: The Federal rules restrict any use of the information to criminally investigate or prosecute any alcohol or drug abuse patient.[facility] CampusIn the event this information is protected by the Federal Confidentiality of Alcohol and Drug Abuse Patient Records regulations: The Federal rules restrict any use of the information to criminally investigate or prosecute any alcohol or drug abuse patient.[facility] CampusIn the event this information is protected by the Federal Confidentiality of Alcohol and Drug Abuse Patient Records regulations: The Federal rules restrict any use of the information to criminally investigate or prosecute any alcohol or drug abuse patient.[facility] CampusIn the event this information is protected by the Federal Confidentiality of Alcohol and Drug Abuse Patient Records regulations: The Federal rules restrict any use of the information to criminally investigate or prosecute any alcohol or drug abuse patient.[facility] CampusIn the event this information is protected by the Federal Confidentiality of Alcohol and Drug Abuse Patient Records regulations: The Federal rules restrict any use of the information to criminally investigate or prosecute any alcohol or drug abuse patient.[facility] CampusIn the event this information is protected by the Federal Confidentiality of Alcohol and Drug Abuse Patient Records regulations: The Federal rules restrict any use of the information to criminally investigate or prosecute any alcohol or drug abuse patient.[facility] CampusIn the event this information is protected by the Federal Confidentiality of Alcohol and Drug Abuse Patient Records regulations: The Federal rules restrict any use of the information to criminally investigate or prosecute any alcohol or drug abuse patient.[facility] Reason for Visit (unrecogniz ed section and content) Reason Comments Follow Up PATIENT IS HERE FOR 3 MONTH FOLLOW UP Reason Comments Results Patient Update Reason Comments Medication Request Reason Onset Date Comments Refill Request 05/18/2022 Reason Onset Date Comments Refill Request 07/16/2022 Needs 90 days & New Pharmacy Reason Comments Consult Change in bowel, maddison quency in diarrhea Reason Comments Medication Problem Dry cough Reason Comments Blood Pressure Reason Comments 10/04/2022 colon lodi Reason Comments Spirometry Specialty Diagnoses / [facility] Diagnoses Mild intermittent asthma without complication Procedures LUNG VOLUMES Henok Martinez MD [address] [place] [address] [facility] [address] [place] [phone] Referral ID Status Reason Start Date Expiration Date V isits Requested Visits Authorized [id number] Closed Auto-Generate d Referral 10/01/2022 10/31/2023 1 1 Specialty Diagnoses / [facility] Diagnoses Mild intermittent asthma without complication Procedures LUNG DIFFUSION CAPACITY (DLCO) DIFFUSING CAPACITY Henok Martinez MD [address] [place] [address] [facility] [address] [place] [phone] Referral ID Status Reason Start Date Expiration Date V isits Requested Visits Authorized [id number] Closed Auto-Generate d Referral 10/01/2022 10/31/2023 1 1 Specialty Diagnoses / Procedures [facility] Diagnoses Mild intermittent asthma without complication Procedures SPIROMETRY - BASELINE AND POST DILATOR BRNCDILAT RSPSE SPMTRY PRE&POST-BRNCDILAT ADMN Henok Martinez MD [address] [place] [address] [facility] [place] [address] [place] [phone] Referral ID Status Reason Start Date Expiration Date V isits Requested Visits Authorized [id number] Closed Auto-Generate d Referral 10/01/2022 10/31/2023 1 1 Reason Comments Results Reason Comments Refill Request Reason Comments Results Discuss results of P FT's Specialty Diagnoses / Procedures Referred By [facility]erred [facility] Diagnoses Chronic cough Procedures NITRIC OXIDE, EXHALED NITRIC OXIDE GAS DETERMINATION Nancy Medley MD [address] [place] [address] [facility] [place] [address] [place] [address] Referral ID Status Reason Start Date Expiration Date V isits Requested Visits Authorized [id number] Closed Auto-Generate d Referral 11/16/2022 12/16/2023 1 1 Reason Comments New Patient Cough Specialty Diagnoses / Procedures Referred By [facility] t Referred To Contact Pulmonary and Critical Care Medicine Diagnoses Cough, unspecified type Procedures CONSULT TO PULM/CRITICAL CARE OFFICE/OUTPATIENT [facility] 60-74 MINUTES Henok Martinez MD [address] [place] [id number] Referral ID Status Reason Start Date Expiration Date V isits Requested Visits Authorized [id number] Closed PCP Requested Referral 10/26/2022 10/26/2023 1 1 Reason Comments Established Patient follow up cough Reason Comments Blood Pressure Check Reason Comments Blood Pressure Check Reason Comments Follow Up Reason Comments Well Woman Specialty Diagnoses / Procedures Referred By [facility] t Referred To Contact Gynecology Diagnoses History of uterine cancer Procedures CONSULT TO GYNECOLOGY OFFICE/OUTPATIENT [facility] 60-74 MINUTES Henok Martinez MD [address] [place] [id number] Referral ID Status Reason Start Date Expiration Date V isits Requested Visits Authorized [id number] Closed PCP Requested Referral Auto-Generated Referral 01/25/2023 01/25/2024 1 1 Reason Comments 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 Type 2 N IDDM Specialty Diagnoses / Procedures Referred By [facility] t Referred To Contact Ophthalmology Diagnoses Type 2 diabetes mellitus without complication, without long-term current use of insulin (HCC) Procedures CONSULT TO OPHTHALMOLOGY OFFICE/OUTPATIENT [facility] 60-74 MINUTES Henok Martinez MD [address] [place] [phone] Referral ID Status Reason Start Date Expiration Date V isits Requested Visits Authorized [id number] Closed PCP Requested Referral 01/25/2023 01/25/2024 1 1 Reason Comments Assessment Patient Education Specialty Diagnoses / Procedures Referred By Contac t Referred To Contact Nutrition Diagnoses Type 2 diabetes mellitus without complication, without long-term current use of insulin (HCC) Procedures CONSULT TO NUTRITION THERAPY MEDICAL NUTRITION ASSMT&IVNTJ INDIV EACH 15 NE MEDICAL NUTRITION ASSMT&IVNTJ INDIV EACH 15 NE MEDICAL NUTRITION ASSMT&IVNTJ INDIV EACH 15 NE MEDICAL NUTRITION ASSMT&IVNTJ INDIV EACH 15 NE Henok Martinez MD [address] [place] [address] Referral ID Status Reason Start Date Expiration Date V isits Requested Visits Authorized [id number] Closed PCP Requested Referral 01/25/2023 01/25/2024 1 1 Reason Comments ER F/U Reason Comments Recheck 2 week bp check- add ed hctz Reason Comments Dry Eye Syndrome Follow Up Reason Onset Date Comments Refill Request 08/05/[address] Specialty Diagnoses / Procedures Referred By Cont[facility] t Referred To Contact CT IMAGING Diagnoses Pelvic and perineal pain Procedures CT PELVIS W IVCON CT PELVIS W/CONTRAST MATERIAL Sadia Ramsey APRN.[employer] OPERATOR [address] [place] [address] [place] [address] Referral ID Status Reason Start Date Expiration Date V isits Requested Visits Authorized [id number] Closed Auto-Generate d Referral 02/08/2023 03/09/2024 1 1 Specialty Diagnoses / Procedures Referred By Contac t Referred To Contact CT IMAGING Diagnoses Chronic cough Abnormal chest x-ray Procedures CT CHEST WO IVCON DIAGNOSTIC COMPUTED TOMOGRAPHY THORAX W/O Nancy Hendrix MD [address] [place] [address] [place] [address] Referral ID Status Reason Start Date Expiration Date V isits Requested Visits Authorized [id number] Closed Auto-Generate d Referral 11/16/2022 12/16/2023 1 1 Reason Comments Follow Up Reason Onset Date Comments Refill Request 12/26/2023 Reason Comments Nausea & Vomiting Diarrhea x2 days Reason Comments Sore Throat nasal congestion, he adache and cough x last night Reason Comments Medication Request Patient Update Reason Comments Patient Update Patient Question Reason Onset Date Comments Refill Request 03/20/2024 Reason Comments Results Reason Comments Diabetic Eye Exam Type 2 NIDDM Reason Onset Date Comments Refill Request 05/11/2024 Reason Onset Date Comments Refill Request 06/02/2024 Reason Comments Established Patient 6 month follow up Reason Comments ER F/U Reason Comments Acute Visit Productive cough for 4 days. Short of breath. Left ear pain, headache. Reason Comments 6 Month Exam Reason Comments Speech Instrumental Swallow Eval Speech Discharge Specialty Diagnoses / Procedures [facility] Diagnoses Oropharyngeal dysphagia Procedures XR MODIFIED BARIUM SWALLOW W SPEECH THERAPY XR MODIFIED BARIUM SWALLOW W SPEECH THERAPY RADIOLOGIC EXAM SWALLOW FUNCTION CONTRAST STUDY Virginia Reina APRN.POLE INCISOR OPERATOR [address] [place] [address] [place] [address] Referral ID Status Reason Start Date Expiration Date V isits Requested Visits Authorized [id number] Closed Auto-Generate d Referral 10/13/2024 11/12/2025 1 1 Reason Comments Results Reason Comments Established Patient Asthma/cough/hemopty sis Reason Onset Date Comments Refill Request 12/15/2024 Reason Comments diabetic supplies Tolu 3 CGM system Reason Comments Appointment Reason Comments Care Coordination Introduction Reason Comments New Patient Specialty Diagnoses / Procedures [facility] Referred To Contact Diagnoses 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) Procedures CONSULT TO HEMATOLOGY/ONCOLOGY OFFICE/OUTPATIENT NEW HIGH MDM 60 MINUTES Ashutosh Freeman MD [address] [facility] [place] [address] [place] [address] Phone: tel: fax: Referral ID Status Reason Start Date Expiration Date V isits Requested Visits Authorized [id number] Closed PCP Requested Referral 01/21/2025 01/21/2026 1 1 Reason Comments avs 01/25 Reason Comments Constipation Reason Onset Date Comments Transition Of Care 01/26/2025 Initial Reason Comments Ambulatory Social Work Food and Transpor tation Reason Comments Chemotherapy Treatment Specialty Diagnoses / Procedures Referred By [facility] Referred To Contact Diagnoses 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) Juan Miguel Yusuf MD [address] [place] [address] Phone: tel: Juan Miguel Yusuf MD [address] [place] [address] Phone: tel: Referral ID Status Reason Start Date Expiration Date V isits Requested Visits Authorized [id number] Authorized 01/27/2025 04/27/2025 99 99 Reason Comments Social Work Services Reason Comments glucometer Reason Comments Hospital F/U Having issue with to oth and trying to get into free dental clinic very soon. Reason Comments Benefits Investigation Reason Comments Established Patient Fu hospital Reason Comments Care Coordination Follow up Note Reason Comments Social Work Services Reason Comments Social Work Services Family Support Reason Comments Patient Update Reason Comments Patient Question cough Reason Comments Care Coordination Follow Up Note Reason Comments Dental Problem Reason Onset Date Comments Transition Of Care 02/11/2025 Hospital reac h in call Reason Onset Date Comments Population Health Navigation Outreach 02/11/2025 [facility] Call Reason Comments Flux Mixer - Hospital Follow Up Reason Comments Future Appointment Reason Comments Appt Needs Rescheduled Reason Comments Hospital F/U Reason Onset Date Comments Refill Request 03/08/2025 Reason Onset Date Comments Advertising Space Clerk- Other 03/10/2025 Chart review Reason Comments Patient Question Reason Onset Date Comments Population Health Navigation Outreach 04/01/2025 Opened In Error 04/01/2025 Reason Comments Established Patient Discuss treatment op tions Reason Onset Date Comments Refill Request 04/12/2025 Reason Onset Date Comments Refill Request 04/19/2025 Reason Onset Date Comments Refill Request 04/22/2025 Reason Comments Established Patient Reason Onset Date Comments Population Health Navigation Outreach 05/26/2025 JOSHO IRON [place] PCSA Reason Comments Radiology CT Specialty Diagnoses / Procedures Referred By Contac t Referred To Contact CT IMAGING Diagnoses 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) Adenocarcinoma of head of pancreas (HCC) Procedures CT CHEST W IVCON DIAGNOSTIC COMPUTED TOMOGRAPHY THORAX W/CONTRAST Juan Miguel Yusuf MD [address] [place] [address] Phone: tel: [place] [address] Referral ID Status Reason Start Date Expiration Date V isits Requested Visits Authorized [id number] Closed Auto-Generate d Referral 05/25/2025 06/24/2026 1 1 Care Teams (unrecognized sec tion and content) Taper And Floater Relationship Specialty Start Date End Date Henok Martinez MD [address] [facility] [address] PCP - General Family Practice 09/14/21 Taper And Floater Relationship Specialty Start Date End Date Henok Martinez MD [address] [place] [address] PCP - General Family Practice 09/14/21 Taper And Floater Relationship Specialty Start Date End Date Henok Martinez MD [address] [place] [address] PCP - General Family Practice 09/14/21 Taper And Floater Relationship Specialty Start Date End Date Henok Martinez MD [address] [place] [address] PCP - General Family Practice 09/14/21 Taper And Floater Relationship Specialty Start Date End Date Henok Martinez MD [address] [place] [address] PCP - General Family Practice 09/14/21 Taper And Floater Relationship Specialty Start Date End Date Henok Martinez MD [address] [place] [address] PCP - General Family Medicine 09/14/21 Taper And Floater Relationship Specialty Start Date End Date Henok Martinez MD [address] [place] [address] PCP - General Family Medicine 09/14/21 Taper And Floater Relationship Specialty Start Date End Date Henok Martinez MD [address] [place] [address] PCP - General Family Medicine 09/14/21 Taper And Floater Relationship Specialty Start Date End Date Henok Martinez MD [address] [place] [address] PCP - General Family Medicine 09/14/21 Taper And Floater Relationship Specialty Start Date End Date Henok Martinez MD [address] [place] [address] PCP - General Family Medicine 09/14/21 Taper And Floater Relationship Specialty Start Date End Date Henok Martinez MD [address] [place] [address] PCP - General Family Medicine 09/14/21 Taper And Floater Relationship Specialty Start Date End Date Henok Martinez MD [address] [place] [address] PCP - General Family Medicine 09/14/21 Taper And Floater Relationship Specialty Start Date End Date Henok Martinez MD [address] [place] [address] PCP - General Family Medicine 09/14/21 Taper And Floater Relationship Specialty Start Date End Date Henok Martinez MD [address] [place] [address] PCP - General Family Medicine 09/14/21 Taper And Floater Relationship Specialty Start Date End Date Henok Martinez MD [address] [place] [address] PCP - General Family Medicine 09/14/21 Taper And Floater Relationship Specialty Start Date End Date Henok Martinez MD [address] [place] [address] PCP - General Family Medicine 09/14/21 Taper And Floater Relationship Specialty Start Date End Date Henok Martinez MD [address] [place] [address] PCP - General Family Medicine 09/14/21 Taper And Floater Relationship Specialty Start Date End Date Henok Martinez MD [address] [place] [address] PCP - General Family Medicine 09/14/21 Taper And Floater Relationship Specialty Start Date End Date Michelle, Henok J, MD [address] [place] [address] PCP - General Family Medicine 09/14/21 Taper And Floater Relationship Specialty Start Date End Date Henok Martinez MD [address] [place] [address] PCP - General Family Medicine 09/14/21 Team Status: Active Member Role Status Dates Dr. Henok Martinez MD Primary Care Provider Active Team Status: Inactive Member Role Status Dates Dr. Henok Martinez MD Primary Care Provider, Referring Provider Active Dr. Zachary Sarabia MD Attending Provider Active Team Status: Inactive Member Role Status Dates Dr. Henok Martinez MD Primary Care Provider Active Dr. Zachary Sarabia MD Attending Provider, Referring Pro vider Active Team Status: Active Member Role Status Dates Dr. Henok Martinez MD Primary Care Provider Active Dr. Zachary Sarabia MD Attending Provider Active Team Status: Inactive Member Role Status Dates Dr. Henok Martinez MD Primary Care Provider Active Dr. Zachary Sarabia MD Attending Provider Active Team Status: Inactive Member Role Status Dates Dr. Henok Martinez MD Primary Care Provider Active Dr. Dick Love DO Emergency Provider Active Taper And Floater Relationship Specialty Start Date End Date Henok Martinez MD [address] [place] [address] PCP - General Family Medicine 09/14/21 Taper And Floater Relationship Specialty Start Date End Date Henok Martinez MD [address] [place] [address] PCP - General Family Medicine 09/14/21 Team Status: Inactive Member Role Status Dates Dr. Henok Martinez MD Primary Care Provider Active Dr. Dick Love DO Attending Provider, Emergency Pr ovider Active Team Status: Inactive Member Role Status Dates Dr. Henok Martinez MD Primary Care Provider Active Dr. Keenan Velazco DO Attending Provider, Emergency P roashely Active Team Status: Inactive Member Role Status Dates Dr. Henok Martinez MD Primary Care Provider Active Dr. Gabe Foster DO Emergency Provider Active Taper And Floater Relationship Specialty Start Date End Date Henok Martinez MD [address] [place], [place] [address] PCP - General Family Medicine 09/14/21 Taper And Floater Relationship Specialty Start Date End Date Henok Martinez MD [address] [place], [place] [address] PCP - General Family Medicine 09/14/21 Taper And Floater Relationship Specialty Start Date End Date Henok Martinez MD [address] [place], [place] [address] PCP - General Family Medicine 09/14/21 Taper And Floater Relationship Specialty Start Date End Date Henok Martinez MD [address] [place], [place] [address] PCP - General Family Medicine 09/14/21 Taper And Floater Relationship Specialty Start Date End Date Henok Martinez MD [address] [place], [place] [address] PCP - General Family Medicine 09/14/21 Team Status: Inactive Member Role Status Dates Dr. Henok Martinez MD Primary Care Provider, Referring Provider Active Dr. Jatinder Khan MD Attending Provider Active Team Status: Inactive Member Role Status Dates Dr. Henok Martinez MD Primary Care Provider Active Dr. Jatinder Khan MD Attending Provider, Referring Provider Active Team Status: Inactive Member Role Status Dates Dr. Henok Martinez MD Primary Care Provider Active Dr. Gerardo Gupta MD Attending Provider, Emergency Provi morales Active Taper And Floater Relationship Specialty Start Date End Date Henok Martinez MD [address] [place], [place] [address] PCP - General Family Medicine 09/14/21 Taper And Floater Relationship Specialty Start Date End Date Henok Martinez MD [address] [place] [address] PCP - General Family Medicine 09/14/21 Taper And Floater Relationship Specialty Start Date End Date Henok Martinez MD [address] [place] [address] PCP - General Family Medicine 09/14/21 Taper And Floater Relationship Specialty Start Date End Date Henok Martinez MD [address] [place] [address] PCP - General Family Medicine 09/14/21 Taper And Floater Relationship Specialty Start Date End Date Henok Martinez MD [address] [place] [address] PCP - General Family Medicine 09/14/21 Taper And Floater Relationship Specialty Start Date End Date Henok Martinez MD [address] [place] [address] PCP - General Family Medicine 09/14/21 Taper And Floater Relationship Specialty Start Date End Date Henok Martinez MD [address] [place] [address] PCP - General Family Medicine 09/14/21 Taper And Floater Relationship Specialty Start Date End Date Henok Martinez MD [address] [facility], [place] [address] PCP - General Family Medicine 09/14/21 Taper And Floater Relationship Specialty Start Date End Date Henok Martinez MD [address] [place] [address] PCP - General Family Medicine 09/14/21 Taper And Floater Relationship Specialty Start Date End Date Henok Martinez MD [address] [place], [place] [address] PCP - General Family Medicine 09/14/21 Taper And Floater Relationship Specialty Start Date End Date Henok Martinez MD [address] [place], [place] [address] PCP - General Family Medicine 09/14/21 Taper And Floater Relationship Specialty Start Date End Date Henok Martinez MD [address] [place], [place] [address]41 PCP - General Family Medicine 09/14/21 Taper And Floater Relationship Specialty Start Date End Date Henok Martinez MD [address] [place] [address] PCP - General Family Medicine 09/14/21 Taper And Floater Relationship Specialty Start Date End Date Henok Martinez MD [address] [place], [place] [address] PCP - General Family Medicine 09/14/21 Taper And Floater Relationship Specialty Start Date End Date Henok Martinez MD [address] [place] [address] PCP - General Family Medicine 09/14/21 Taper And Floater Relationship Specialty Start Date End Date Henok Martinez MD [address] [place], [place] [address] PCP - General Family Medicine 09/14/21 Taper And Floater Relationship Specialty Start Date End Date Henok Martinez MD [address] [place], [place] [address] PCP - General Family Medicine 09/14/21 Clarita Boggs LEAD JAVA SOFTWARE ENGINEER.POLE INCISOR OPERATOR [address] [facility] [place] [address] Surgical Supplies Sterilizer Family Medicine 10/05/24 Virginia Reina LEAD JAVA SOFTWARE ENGINEER.POLE INCISOR OPERATOR [address] [place] [address] [facility] Taper And Floater Relationship Specialty Start Date End Date Henok Martinez MD [address] [place] [address] PCP - General Family Medicine 09/14/21 Clarita Boggs APRN.POLE INCISOR OPERATOR [address] [facility] [place] [address] [facility] 10/05/24 Virginia Reina LEAD JAVA SOFTWARE ENGINEER.POLE INCISOR OPERATOR [address] [place] [address] [facility] 10/05/24 Taper And Floater Relationship Specialty Start Date End Date Henok Martinez MD [address] [place] [address] PCP - General Family Medicine 09/14/21 Clarita Boggs LEAD JAVA SOFTWARE ENGINEER.POLE INCISOR OPERATOR [address] [facility] [place] [address] [facility] 10/05/24 Virginia Reina LEAD JAVA SOFTWARE ENGINEER.POLE INCISOR OPERATOR [address] [place] [address] [facility] 10/05/24 Taper And Floater Relationship Specialty Start Date End Date Henok Martinez MD [address] [place] [address] PCP - General Family Medicine 09/14/21 Clarita Boggs APRN.POLE INCISOR OPERATOR [address] [place] [address] Surgical Supplies Sterilizer Family Medicine 10/05/24 Virginia Reina APRN.POLE INCISOR OPERATOR [address] [place] [address] [facility] 10/05/24 Taper And Floater Relationship Specialty Start Date End Date Henok Martinez MD [address] [place] [address] PCP - General Family Medicine 09/14/21 Clarita Boggs APRN.POLE INCISOR OPERATOR [address] [facility] [place] [address] Surgical Supplies Sterilizer Family Medicine 10/05/24 Virginia Reina APRN.POLE INCISOR OPERATOR [address] [place] [address] Surgical Supplies Sterilizer Family Medicine 10/05/24 Taper And Floater Relationship Specialty Start Date End Date Henok Martinez MD [address] [place] [address] PCP - General Family Medicine 09/14/21 Clarita Boggs APRN.POLE INCISOR OPERATOR [address] [facility] [place] [address] Surgical Supplies Sterilizer Family Medicine 10/05/24 Virginia Reina APRN.POLE INCISOR OPERATOR [address] [place] [address] Surgical Supplies Sterilizer Family [facility] 10/05/24 Taper And Floater Relationship Specialty Start Date End Date Henok Martinez MD [address] [place] [address] PCP - General Family Medicine 09/14/21 Clarita Boggs APRN.POLE INCISOR OPERATOR [address] [place] [address] Surgical Supplies Sterilizer Family Medicine 10/05/24 Virginia Reina APRN.POLE INCISOR OPERATOR [address] [place] [address] [facility] 10/05/24 Taper And Floater Relationship Specialty Start Date End Date Henok Martinez MD [address] [place] [address] PCP - General Family Medicine 09/14/21 Clarita Boggs LEAD JAVA SOFTWARE ENGINEER.POLE INCISOR OPERATOR [address] [place] [address] Surgical Supplies Sterilizer Family Medicine 10/05/24 Virginia Reina LEAD JAVA SOFTWARE ENGINEER.POLE INCISOR OPERATOR [address] [place] [address] Surgical Supplies Sterilizer Family Medicine 10/05/24 Taper And Floater Relationship Specialty Start Date End Date Henok Martinez MD [address] [place] [address] PCP - General Family Medicine 09/14/21 Clarita Boggs LEAD JAVA SOFTWARE ENGINEER.POLE INCISOR OPERATOR [address] [place] [address] [facility] 10/05/24 Virginia Reina APRN.POLE INCISOR OPERATOR [address] [place] [address] [facility] 10/05/24 Taper And Floater Relationship Specialty Start Date End Date Henok Martinez MD [address] [place] [address] PCP - General Family Medicine 09/14/21 Clarita Boggs APRN.POLE INCISOR OPERATOR [address] [place] [address] [facility] 10/05/24 Virginia Reina LEAD JAVA SOFTWARE ENGINEER.POLE INCISOR OPERATOR [address] [place] [address] [facility] 10/05/24 Taper And Floater Relationship Specialty Start Date End Date Henok Martinez MD [address] [place] [address] PCP - General Family Medicine 09/14/21 Clarita Boggs, LEAD JAVA SOFTWARE ENGINEER.POLE INCISOR OPERATOR [address] [place] [address] [facility] 10/05/24 Virginia Reina LEAD JAVA SOFTWARE ENGINEER.POLE INCISOR OPERATOR [address] [place] [address] [facility] 10/05/24 Brett Hatch, RN [address] [place] [address] Advertising Space Clerk 01/04/25 Taper And Floater Relationship Specialty Start Date End Date Henok Martinez MD [address] [place] [address] PCP - General Family Medicine 09/14/21 Clarita Boggs, LEAD JAVA SOFTWARE ENGINEER.POLE INCISOR OPERATOR [address] [place] [address] [facility] 10/05/24 Virginia Reina LEAD JAVA SOFTWARE ENGINEER.POLE INCISOR OPERATOR [address] [place] [address] [facility] 10/05/24 Taper And Floater Relationship Specialty Start Date End Date Henok Martinez MD [address] [place] [address] PCP - General Family Medicine 09/14/21 Clarita Boggs, LEAD JAVA SOFTWARE ENGINEER.POLE INCISOR OPERATOR [address] [place] [address] [facility] 10/05/24 Virginia Reina LEAD JAVA SOFTWARE ENGINEER.POLE INCISOR OPERATOR [address] [place] [address] [facility] 10/05/24 Team Status: Inactive Member Role Status Dates Dr. Henok Martinez MD Primary Care Provider Active Start: September 17, 2024 End: September 17, 2024 Dr. Henok Martinez MD Attending Provider Active Start: September 17, 2024 End: September 17, 2024 Dr. Henok Martinez MD Referring Provider Active Start: September 17, 2024 End: September 17, 2024 Team Status: Active Member Role Status Dates Dr. Henok Martinez MD Primary Care Provider Active Start: January 10, 2025 Dr. Hung Remy DO Emergency Provider Active Start: January 10, 2025 Dr. Oniel Golden DO Admit Provider Active Start: January 10, 2025 Dr. Oniel Golden DO Attending Provider Active Start: January 10, 2025 Team Status: Inactive Member Role Status Dates Dr. Henok Martinez MD Primary Care Provider Active Start: January 10, 2025 End: January 14, 2025 Dr. Hung Remy , DO Emergency Provider Active Start: January 10, 2025 End: January 14, 2025 Dr. Oneil Golden , DO Admit Provider Active Start: January 10, 2025 End: January 14, 2025 Dr. Oniel Golden , DO Other Provider Active Start: January 10, 2025 End: January 14, 2025 Dr. Jose Wu , DO Attending Provider Active Start: January 10, 2025 End: January 14, 2025 Dr. Keenan Celeste , DO Other Provider Active Star t: January 10, 2025 End: January 14, 2025 Team Status: Active Member Role Status Dates Dr. Henok Martinez MD Primary Care Provider Active Start: January 11, 2025 Dr. Hung Remy , Emergency Provider Active Start: January 11, 2025 Dr. Oniel Golden , DO Admit Provider Active Start: January 11, 2025 Dr. Oniel Golden , DO Other Provider Active Start: January 11, 2025 Dr. Jose Wu , DO Attending Provider Active Start: January 11, 2025 Dr. Jose Wu , DO Other Provider Active S tart: January 11, 2025 Dr. Keenan Celeste , DO Other Provider Active Star t: January 11, 2025 Team Status: Active Member Role Status Dates Dr. Henok Martinez MD Primary Care Provider Active Start: January 11, 2025 Dr. Hung Remy , DO Emergency Provider Active Start: January 11, 2025 Dr. Oniel Golden , DO Admit Provider Active Start: January 11, 2025 Dr. Oniel Golden , DO Other Provider Active Start: January 11, 2025 Dr. Jose Wu , DO Other Provider Active S tart: January 11, 2025 Dr. Keenan Celeste , DO Other Provider Active Star t: January 11, 2025 Dr. Mohit Brown , DO Attending Provider Active Start: January 11, 2025 Team Status: Active Member Role Status Dates Dr. Henok Martinez MD Primary Care Provider Active Start: January 12, 2025 Dr. Hung Remy , DO Emergency Provider Active Start: January 12, 2025 Dr. Oniel Golden , DO Admit Provider Active Start: January 12, 2025 Dr. Oniel Golden , DO Other Provider Active Start: January 12, 2025 Dr. Jose Wu , DO Other Provider Active S tart: January 12, 2025 Dr. Keenan Celeste , DO Other Provider Active Star t: January 12, 2025 Dr. Mohit Brown , DO Attending Provider Active Start: January 12, 2025 Team Status: Active Member Role Status Dates Dr. Henok Martinez MD Primary Care Provider Active Start: January 12, 2025 Dr. Hung Remy , DO Emergency Provider Active Start: January 12, 2025 Dr. Oniel Golden , DO Admit Provider Active Start: January 12, 2025 Dr. Oniel Golden , DO Other Provider Active Start: January 12, 2025 Dr. Jose Wu , DO Attending Provider Active Start: January 12, 2025 Dr. Jose Wu , DO Other Provider Active S tart: January 12, 2025 Dr. Keenan Celeste , DO Other Provider Active Star t: January 12, 2025 Team Status: Active Member Role Status Dates Dr. Henok Martinez MD Primary Care Provider Active Start: January 13, 2025 Dr. Hung Remy , DO Emergency Provider Active Start: January 13, 2025 Dr. Oniel Golden , DO Admit Provider Active Start: January 13, 2025 Dr. Oniel Golden , DO Other Provider Active Start: January 13, 2025 Dr. Jose Wu , DO Attending Provider Active Start: January 13, 2025 Dr. Jose Wu , DO Other Provider Active S tart: January 13, 2025 Dr. Keenan Celeste , DO Other Provider Active Star t: January 13, 2025 Team Status: Active Member Role Status Dates Dr. Henok Martinez MD Primary Care Provider Active Start: January 14, 2025 Dr. Hung Remy , DO Emergency Provider Active Start: January 14, 2025 Dr. Oniel Golden , DO Admit Provider Active Start: January 14, 2025 Dr. Oniel Golden , DO Other Provider Active Start: January 14, 2025 Dr. Jose Wu , DO Attending Provider Active Start: January 14, 2025 Dr. Jose Wu , DO Other Provider Active S tart: January 14, 2025 Dr. Keenan Celeste , DO Other Provider Active Star t: January 14, 2025 Taper And Floater Relationship Specialty Start Date End Date Henok Martinez MD [address] [facility] [address] PCP - General Family Medicine 09/14/21 Clarita Boggs APRN.POLE INCISOR OPERATOR [address] [facility] [place] [address] [facility] Virginia Reina APRN.POLE INCISOR OPERATOR [address] [facility] [address] Surgical Supplies Sterilizer Family [facility] 10/05/24 Stuart Dias RN Transitional Flux Mixer 01/25/25 Juan Miguel Yusuf MD [address] [facility] [place] [address] Hematology/Oncology 01/25/25 Maria Isabel Silverio RN [address] [facility] [place] [address] Specialty Flux Mixer Hematology/Oncology 01/25/25 Taper And Floater Relationship Specialty Start Date End Date Henok Martinez MD [address] [facility] [address] PCP - General Family Medicine 09/14/21 Clarita Boggs APRN.POLE INCISOR OPERATOR [address] [facility] [place] [address] Surgical Supplies Sterilizer Family [facility] 10/05/24 Virginia Reina APRN.POLE INCISOR OPERATOR [address] [place] [address] [facility] 10/05/24 Stuart Dias, real estate rental agent Coordinator 01/25/25 Juan Miguel Yusuf MD [address] [place] [address] Hematology/Oncology 01/25/25 Maria Isabel Silverio, MAGNUS [address] [place] [address] Specialty Flux Mixer Hematology/Oncology 01/25/25 Taper And Floater Relationship Specialty Start Date End Date Henok Martinez MD [address] [place] [address] PCP - General Family Medicine 09/14/21 Clarita Boggs, LEAD JAVA SOFTWARE ENGINEER.POLE INCISOR OPERATOR [address] [facility] [place] [address] Critical Access Hospital 10/05/24 Virginia Reina, LEAD JAVA SOFTWARE ENGINEER.POLE INCISOR OPERATOR [address] [place] [address] Critical Access [facility] 10/05/24 Stuart Dias real estate rental agent Coordinator 01/25/25 Juan Miguel Yusuf MD [address] [place] [address] Hematology/Oncology 01/25/25 Maria Isabel Silverio, MAGNUS [address] [place] [address] Specialty Flux Mixer Hematology/Oncology 01/25/25 Taper And Floater Relationship Specialty Start Date End Date Henok Martinez MD [address] [place] [address] PCP - General Family Medicine 09/14/21 Clarita Boggs APRN.POLE INCISOR OPERATOR [address] [place] [address] Surgical Supplies Sterilizer Family Medicine 10/05/24 Virginia Reina APRN.POLE INCISOR OPERATOR [address] [place] [address] Surgical Supplies Sterilizer Family Medicine 10/05/24 Stuart Dias, real estate rental agent Coordinator 01/25/25 Juan Miguel Yusuf MD [address] [place] [address] Hematology/Oncology 01/25/25 Maria Isabel Silverio RN [address] [place] [address] Specialty Flux Mixer Hematology/Oncology 01/25/25 Taper And Floater Relationship Specialty Start Date End Date Henok Martinez MD [address] [place] [address] PCP - General Family Medicine 09/14/21 Clarita Boggs APRN.POLE INCISOR OPERATOR [address] [place] [address] Surgical Supplies Sterilizer Family Medicine 10/05/24 Virginia Reina APRN.POLE INCISOR OPERATOR [address] [place] [address] Surgical Supplies Sterilizer Family Medicine 10/05/24 Stuart Dias RN Transitional Flux Mixer 01/25/25 Juan Miguel Yusuf MD [address] [place] [address] Hematology/Oncology 01/25/25 Maria Isabel Silverio, MAGNUS [address] [place] [address] Specialty Flux Mixer Hematology/Oncology 01/25/25 Taper And Floater Relationship Specialty Start Date End Date Henok Martinez MD [address] [place] [address] PCP - General Family Medicine 09/14/21 Clarita Boggs APRN.POLE INCISOR OPERATOR [address] [place] [address] Surgical Supplies Sterilizer Family Medicine 10/05/24 Virginia Reina LEAD JAVA SOFTWARE ENGINEER.POLE INCISOR OPERATOR [address] [place] [address] Surgical Supplies Sterilizer Family Medicine 10/05/24 Stuart Dias RN Transitional Flux Mixer 01/25/25 Juan Miguel Yusuf MD [address] [place] [address] Hematology/Oncology 01/25/25 Maria Isabel Silverio, MAGNUS [address] [place] [address] Specialty Flux Mixer Hematology/Oncology 01/25/25 Taper And Floater Relationship Specialty Start Date End Date Henok Martinez MD [address] [place] [address] PCP - General Family Medicine 09/14/21 Clarita Boggs LEAD JAVA SOFTWARE ENGINEER.POLE INCISOR OPERATOR [address] [facility] [place] [address] Surgical Supplies Sterilizer Family [facility] 10/05/24 Virginia Reina, LEAD JAVA SOFTWARE ENGINEER.POLE INCISOR OPERATOR [address] [place] [address] Surgical Supplies Sterilizer Family Medicine 10/05/24 Stuart Dias real estate rental agent Coordinator 01/25/25 Juan Miguel Yusuf MD [address] [place] [address] Hematology/Oncology 01/25/25 Maria Isabel Silverio, MAGNUS [address] [place] [address] Specialty Flux Mixer Hematology/Oncology 01/25/25 Escobar [place] LSW 01/27/25 Taper And Floater Relationship Specialty Start Date End Date Henok Martinez MD [address] [place] [address] PCP - General Family Medicine 09/14/21 Clarita Boggs, LEAD JAVA SOFTWARE ENGINEER.POLE INCISOR OPERATOR [address] [facility] [place] [address] Surgical Supplies Sterilizer Family Medicine 10/05/24 Virginia Reina, LEAD JAVA SOFTWARE ENGINEER.POLE INCISOR OPERATOR [address] [place] [address] Surgical Supplies Sterilizer Family Medicine 10/05/24 Stuart Dias RN Transitional Flux Mixer 01/25/25 Juan Miguel Yusuf MD [address] [place] [address] Hematology/Oncology 01/25/25 Maria Isabel Silverio RN [address] [place] [address] Specialty Flux Mixer Hematology/Oncology 01/25/25 Escobar [place], [facility] 01/27/25 Taper And Floater Relationship Specialty Start Date End Date Henok Martinez MD [address] [place] [address] PCP - General Family Medicine 09/14/21 Clarita Boggs, LEAD JAVA SOFTWARE ENGINEER.POLE INCISOR OPERATOR [address] [place] [address] Surgical Supplies Sterilizer Family Medicine 10/05/24 Virginia Reina LEAD JAVA SOFTWARE ENGINEER.POLE INCISOR OPERATOR [address] [place] [address] Surgical Supplies Sterilizer Family Medicine 10/05/24 Stuart Dias RN Transitional Flux Mixer 01/25/25 Juan Miguel Yusuf MD [address] [place] [address] Hematology/Oncology 01/25/25 Maria Isabel Silverio RN [address] [place] [address] Specialty Flux Mixer Hematology/Oncology 01/25/25 Escobar [place], [facility] 01/27/25 Taper And Floater Relationship Specialty Start Date End Date Henok Martinez MD [address] [place] [address] PCP - General Family Medicine 09/14/21 Clarita Bgogs, LEAD JAVA SOFTWARE ENGINEER.POLE INCISOR OPERATOR [address] [place] [address] Surgical Supplies Sterilizer Family Medicine 10/05/24 Virginia Reina, LEAD JAVA SOFTWARE ENGINEER.POLE INCISOR OPERATOR [address] [place] [address] Surgical Supplies Sterilizer Family Medicine 10/05/24 Stuart Dias real estate rental agent Coordinator 01/25/25 Juan Miguel Yusuf MD [address] [place] [address] Hematology/Oncology 01/25/25 Maria Isabel Silverio, RN [address] [place] [address] Specialty Flux Mixer Hematology/Oncology 01/25/25 Escobar [place] LSW 01/27/25 Taper And Floater Relationship Specialty Start Date End Date Henok Martinez MD [address] [place] [address] PCP - General Family Medicine 09/14/21 Clarita Boggs, LEAD JAVA SOFTWARE ENGINEER.POLE INCISOR OPERATOR [address] [facility] [place] [address] [facility] Family [facility] 10/05/24 Virginia Reina, LEAD JAVA SOFTWARE ENGINEER.POLE INCISOR OPERATOR [address] [place] [address] Surgical Supplies Sterilizer Family Medicine 10/05/24 Stuart Dias RN Transitional Flux Mixer 01/25/25 Juan Miguel Yusuf MD [address] [place] [address] Hematology/Oncology 01/25/25 Maria Isabel Silverio, MAGNUS [address] [place] [address] Specialty Flux Mixer Hematology/Oncology 01/25/25 Escobar [place], [facility] 01/27/25 Taper And Floater Relationship Specialty Start Date End Date Henok Martinez MD [address] [place] [address] PCP - General Family Medicine 09/14/21 Clarita Boggs APRN.POLE INCISOR OPERATOR [address] [facility] [place] [address] Surgical Supplies Sterilizer Family [facility] 10/05/24 Virginia Reina APRN.POLE INCISOR OPERATOR [address] [place] [address] Surgical Supplies Sterilizer Family Medicine 10/05/24 Stuart Dias RN Transitional Flux Mixer 01/25/25 Juan Miguel Yusuf MD [address] [place] [address] Hematology/Oncology 01/25/25 Maria Isabel Silverio RN [address] [place] [facility] [place] [address] Specialty Flux Mixer Hematology/Oncology 01/25/25 Escobar [place], [facility] 01/27/25 Taper And Floater Relationship Specialty Start Date End Date Henok Martinez MD [address] [place] [address] PCP - General Family Medicine 09/14/21 Clarita Boggs APRN.POLE INCISOR OPERATOR [address] [facility] [place] [address] Surgical Supplies Sterilizer Family [facility] 10/05/24 Virginia Reina APRN.POLE INCISOR OPERATOR [address] [place] [address] Surgical Supplies Sterilizer Family Medicine 10/05/24 Stuart Dias RN Transitional Flux Mixer 01/25/25 Juan Miguel Yusuf MD [address] [place] [address] Hematology/Oncology 01/25/25 Maria Isabel Silverio, MAGNUS [address] [place] [address] Specialty Flux Mixer Hematology/Oncology 01/25/25 Escobar [place] LSW 01/27/25 Taper And Floater Relationship Specialty Start Date End Date Henok Martinez MD [address] [place] [address] PCP - General Family Medicine 09/14/21 Clarita Boggs APRN.POLE INCISOR OPERATOR [address] [facility] [place] [address] Surgical Supplies Sterilizer Family [facility] 10/05/24 Virginia Reina APRN.POLE INCISOR OPERATOR [address] [place] [address] Surgical Supplies Sterilizer Family [facility] 10/05/24 Stuart Dias RN Transitional Flux Mixer 01/25/25 Juan Miguel Yusuf MD [address] [place] [address] Hematology/Oncology 01/25/25 Maria Isabel Silverio, MAGNUS [address] [place] [address] Specialty Flux Mixer Hematology/Oncology 01/25/25 Ayaz Nguyễn MD [address] [place], [place] [id number] General Surgery 02/04/25 Taper And Floater Relationship Specialty Start Date End Date Henok Martinez MD [address] [place], [place] [address] PCP - General Family Medicine 09/14/21 Clarita Boggs, SHY.POLE INCISOR OPERATOR [address] [place] [address] Surgical Supplies Sterilizer Family [facility] 10/05/24 Virginia Reina LEAD JAVA SOFTWARE ENGINEER.POLE INCISOR OPERATOR [address] [place] [address] Surgical Supplies Sterilizer Family [facility] 10/05/24 Stuart Dias RN Transitional Flux Mixer 01/25/25 Juan Miguel Yusuf MD [address] [place] [address] Hematology/Oncology 01/25/25 Maria Isabel Silverio RN [address] [place] [address] Specialty Flux Mixer Hematology/Oncology 01/25/25 Ayaz Nguyễn MD [address] [place], [place] [id number] General Surgery 02/04/25 Addison Holley LISW [address] [place] [address] Manifest Clerk Hematology/Oncology 02/05/25 Taper And Floater Relationship Specialty Start Date End Date Henok Martinez MD [address] [place], [place] [address] PCP - General Family Medicine 09/14/21 Clarita Boggs, LEAD JAVA SOFTWARE ENGINEER.POLE INCISOR OPERATOR [address] [facility] [place] [address] Surgical Supplies Sterilizer Family Medicine 10/05/24 Virginia Reina, LEAD JAVA SOFTWARE ENGINEER.POLE INCISOR OPERATOR [address] [place] [address] Surgical Supplies Sterilizer Family Medicine 10/05/24 Stuart Dias real estate rental agent Coordinator 01/25/25 Juan Miguel Yusuf MD [address] [place] [facility] [place] [address] Hematology/Oncology 01/25/25 Maria Isabel Silverio RN [address] [place] [address] Specialty Flux Mixer Hematology/Oncology 01/25/25 Ayaz Nguyễn MD 1 [place] [address] General Surgery 02/04/25 Addison Holley LISW [address] [facility] [place] [address] Manifest Clerk Hematology/Oncology 02/05/25 Taper And Floater Relationship Specialty Start Date End Date Henok Martinez MD [address] [place] [address] PCP - General Family Medicine 09/14/21 Clarita Boggs, LEAD JAVA SOFTWARE ENGINEER.POLE INCISOR OPERATOR [address] [facility] [place] [address] Surgical Supplies Sterilizer Family Medicine 10/05/24 Virginia Reina, LEAD JAVA SOFTWARE ENGINEER.POLE INCISOR OPERATOR [address] [place] [address] Surgical Supplies Sterilizer Family Medicine 10/05/24 Stuart Dias RN Transitional Flux Mixer 01/25/25 Juan Miguel Yusuf MD [address] [place] [address] Hematology/Oncology 01/25/25 Maria Isabel Silverio, MAGNUS [address] [place] [address] Specialty Flux Mixer Hematology/Oncology 01/25/25 Ayaz Nguyễn MD 1 [place] [address] General Surgery 02/04/25 Addison Holley LISW [address] [place] [address] Manifest Clerk Hematology/Oncology 02/05/25 Taper And Floater Relationship Specialty Start Date End Date Henok Martinez MD [address] [place] [address] PCP - General Family Medicine 09/14/21 Clarita Boggs, LEAD JAVA SOFTWARE ENGINEER.POLE INCISOR OPERATOR [address] [facility] [place] [address] Surgical Supplies Sterilizer Family Medicine 10/05/24 Virginia Reina, LEAD JAVA SOFTWARE ENGINEER.POLE INCISOR OPERATOR [address] [place] [address] Surgical Supplies Sterilizer Family Medicine 10/05/24 Stuart Dias RN Transitional Flux Mixer 01/25/25 Juan Miguel Yusuf MD [address] [place] [address] Hematology/Oncology 01/25/25 Maria Isabel Silverio, MAGNUS [address] [place] [address] Specialty Flux Mixer Hematology/Oncology 01/25/25 Ayaz Nguyễn MD [address] [place], [place] [id number] General Surgery 02/04/25 Addison Holley LISW [address] [place] [address] Manifest Clerk Hematology/Oncology 02/05/25 Taper And Floater Relationship Specialty Start Date End Date Henok Martinez MD [address] [facility] [address] PCP - General Family Medicine 09/14/21 Clarita Boggs APRN.POLE INCISOR OPERATOR [address] [facility] [place] [address] Surgical Supplies Sterilizer Family Medicine 10/05/24 Virginia Reina APRN.POLE INCISOR OPERATOR [address] [place] [address] Surgical Supplies Sterilizer Family Medicine 10/05/24 Stuart Dias RN Transitional Flux Mixer 01/25/25 Juan Miguel Yusuf MD [address] [facility] [place] [address] Hematology/Oncology 01/25/25 Maria Isabel Silverio, MAGNUS [address] [place] [facility] [place] [address] Specialty Flux Mixer Hematology/Oncology 01/25/25 Ayaz Nguyễn MD [address] [place], [place] [phone] General Surgery 02/04/25 Addison Holley LISW [address] [place] [address] Manifest Clerk Hematology/Oncology 02/05/25 Taper And Floater Relationship Specialty Start Date End Date [place], Henok J, MD [address] [facility], [place] [address] PCP - General Family Medicine 09/14/21 Clarita Boggs, LEAD JAVA SOFTWARE ENGINEER.POLE INCISOR OPERATOR [address] [facility] [place] [address] Surgical Supplies Sterilizer Family Medicine 10/05/24 Virginia Reina LEAD JAVA SOFTWARE ENGINEER.POLE INCISOR OPERATOR [address] [place] [address] Surgical Supplies Sterilizer Family Medicine 10/05/24 Stuart Dias real estate rental agent Coordinator 01/25/25 Juan Miguel Yusuf MD [address] [facility] [place] [address] Hematology/Oncology 01/25/25 Maria Isabel Silverio, MAGNUS [address] [place] [facility] [place] [address] Specialty Flux Mixer Hematology/Oncology 01/25/25 Ayaz Nguyễn MD [address] [place], [place] [phone] General Surgery 02/04/25 Addison Holley LISW [address] [place] [address] Manifest Clerk Hematology/Oncology 02/05/25 Taper And Floater Relationship Specialty Start Date End Date Henok Martinez MD [address] [place] [address] PCP - General Family Medicine 09/14/21 Clarita Boggs, LEAD JAVA SOFTWARE ENGINEER.POLE INCISOR OPERATOR [address] [facility] [place] [address] Surgical Supplies Sterilizer Family Medicine 10/05/24 Virginia Reina, LEAD JAVA SOFTWARE ENGINEER.POLE INCISOR OPERATOR [address] [place] [address] Surgical Supplies Sterilizer Family Medicine 10/05/24 Juan Miguel Yusuf MD [address] [place] [address] Hematology/Oncology 01/25/25 Maria Isabel Silverio RN [address] [facility] [place] [address] Specialty Flux Mixer Hematology/Oncology 01/25/25 yAaz Nguyễn MD [address] [place], [place] [id number] General Surgery 02/04/25 Addison Holley LISW [address] [place] [address] Manifest Clerk Hematology/Oncology 02/05/25 Paulette Cagle RN Primary Care Feed Management Advisor 02/15/25 Taper And Floater Relationship Specialty Start Date End Date Henok Martinez MD [address] [place] [address] PCP - General Family Medicine 09/14/21 Clarita Boggs, LEAD JAVA SOFTWARE ENGINEER.POLE INCISOR OPERATOR [address] [facility] [place] [address] Surgical Supplies Sterilizer Family Medicine 10/05/24 Virginia Reina, LEAD JAVA SOFTWARE ENGINEER.POLE INCISOR OPERATOR [address] [place] [address] Surgical Supplies Sterilizer Family Medicine 10/05/24 Juan Miguel Yusuf MD [address] [place] [address] Hematology/Oncology 01/25/25 Maria Isabel Silverio, MAGNUS [address] [place] [address] Specialty Flux Mixer Hematology/Oncology 01/25/25 Ayaz Nguyễn MD 1 [place] [address] General Surgery 02/04/25 Addison Holley LISW [address] [place] [address] Manifest Clerk Hematology/Oncology 02/05/25 Paulette Cagle RN Primary Care Feed Management Advisor 02/15/25 Taper And Floater Relationship Specialty Start Date End Date Henok Martinez MD [address] [place] [address] PCP - General Family Medicine 09/14/21 Clarita Boggs, LEAD JAVA SOFTWARE ENGINEER.POLE INCISOR OPERATOR [address] [facility] [place] [address] Surgical Supplies Sterilizer Family Medicine 10/05/24 Virginia Reina, LEAD JAVA SOFTWARE ENGINEER.POLE INCISOR OPERATOR [address] [place] [address] Surgical Supplies Sterilizer Family Medicine 10/05/24 Juan Miguel Yusuf MD [address] [place] [address] Hematology/Oncology 01/25/25 Maria Isabel Silverio, MAGNUS [address] [place] [address] Specialty Flux Mixer Hematology/Oncology 01/25/25 Ayaz Nguyễn MD [address] [place], [place] [id number] General Surgery 02/04/25 Addison Holley LISW [address] [place] [address] Manifest Clerk Hematology/Oncology 02/05/25 Paulette Cagle, water sander Feed Management Advisor 02/15/25 Taper And Floater Relationship Specialty Start Date End Date Henok Martinez MD [address] [place], [place] [address] PCP - General Family Medicine 09/14/21 Clarita Boggs APRN.POLE INCISOR OPERATOR [address] [place], [place] [id number] Surgical Supplies Sterilizer Family [facility] 10/05/24 Virginia Reina, LEAD JAVA SOFTWARE ENGINEER.POLE INCISOR OPERATOR [address] [place], [place] 6[address] Surgical Supplies Sterilizer Family [facility] 10/05/24 Juan Miguel Yusuf MD [address] [place], [place] [id number] Hematology/Oncology 01/25/25 Maria Isabel Silverio RN [address] [place], [place] [id number] Specialty Flux Mixer Hematology/Oncology 01/25/25 Ayaz Nguyễn MD 1 [place], [place] [phone] General Surgery 02/04/25 Addison Holley LISW [address] [place] [address] Manifest Clerk Hematology/Oncology 02/05/25 Paulette Cagle, water sander Feed Management Advisor 02/15/25 Taper And Floater Relationship Specialty Start Date End Date Henok Martinez MD [address] [place] [address] PCP - General Family Medicine 09/14/21 Clarita Boggs APRN.POLE INCISOR OPERATOR [address] [place] [address] Surgical Supplies Sterilizer Family Medicine 10/05/24 Virginia Reina APRN.POLE INCISOR OPERATOR [address] [place] [address] Surgical Supplies Sterilizer Family Medicine 10/05/24 Juan Miguel Yusuf MD [address] [place] [address] Hematology/Oncology 01/25/25 Maria Isabel Silverio RN [address] [facility] [place] [address] Specialty Flux Mixer Hematology/Oncology 01/25/25 Ayaz Nguyễn MD 1 [place], [place] [phone] General Surgery 02/04/25 Addison Holley LISW [address] [place] [address] Manifest Clerk Hematology/Oncology 02/05/25 Paulette Cagle, water sander Feed Management Advisor 02/15/25 Taper And Floater Relationship Specialty Start Date End Date Henok Martinez MD [address] [place] [address] PCP - General Family Medicine 09/14/21 Clarita Boggs APRN.POLE INCISOR OPERATOR [address] [facility] [place] [address] Surgical Supplies Sterilizer Family Medicine 10/05/24 Virginia Reina, LEAD JAVA SOFTWARE ENGINEER.POLE INCISOR OPERATOR [address] [place] [address] Surgical Supplies Sterilizer Family Medicine 10/05/24 Juna Miguel Yusuf MD [address] [place] [address] Hematology/Oncology 01/25/25 Maria Isabel Silverio, MAGNUS [address] [place] [address] Specialty Flux Mixer Hematology/Oncology 01/25/25 Ayaz Nguyễn MD [address] [place], [place] [id number] General Surgery 02/04/25 Addison Holley LISW [address] [place] [address] Manifest Clerk Hematology/Oncology 02/05/25 Paulette Cagle, water sander Feed Management Advisor 02/15/25 Taper And Floater Relationship Specialty Start Date End Date Henok Martinez MD [address] [place] [address] PCP - General Family Medicine 09/14/21 Clarita Boggs, LEAD JAVA SOFTWARE ENGINEER.POLE INCISOR OPERATOR [address] [place] [address] Surgical Supplies Sterilizer Family Medicine 10/05/24 Virginia Reina, LEAD JAVA SOFTWARE ENGINEER.POLE INCISOR OPERATOR [address] [place] [address] Surgical Supplies Sterilizer Family Medicine 10/05/24 Juan Miguel Yusuf MD [address] [place] [address] Hematology/Oncology 01/25/25 Maria Isabel Silverio RN [address] [place] [address] Specialty Flux Mixer Hematology/Oncology 01/25/25 Ayaz Nguyễn MD 1 [place], [place] [id number] General Surgery 02/04/25 Addison Holley LISW [address] [place] [address] Manifest Clerk Hematology/Oncology 02/05/25 Paulette Cagle RN Primary Care Feed Management Advisor 02/15/25 Taper And Floater Relationship Specialty Start Date End Date Henok Martinez MD [address] [place] [address] PCP - General Family Medicine 09/14/21 Clarita Boggs, LEAD JAVA SOFTWARE ENGINEER.POLE INCISOR OPERATOR [address] [facility] [place] [address] Surgical Supplies Sterilizer Family Medicine 10/05/24 Virginia Reina, LEAD JAVA SOFTWARE ENGINEER.POLE INCISOR OPERATOR [address] [place] [address] Surgical Supplies Sterilizer Family Medicine 10/05/24 Juan Miguel Yusuf MD [address] [place] [address] Hematology/Oncology 01/25/25 Maria Isabel Silverio, MAGNUS [address] [place] [address] Specialty Flux Mixer Hematology/Oncology 01/25/25 Ayaz Nguyễn MD 1 [place] [address] General Surgery 02/04/25 Addison Holley LISW [address] [place] [address] Manifest Clerk Hematology/Oncology 02/05/25 Paulette Cagle, water sander Feed Management Advisor 02/15/25 Taper And Floater Relationship Specialty Start Date End Date Henok Martinez MD [address] [place] [address] PCP - General Family Medicine 09/14/21 Clarita Boggs APRN.POLE INCISOR OPERATOR [address] [place] [address] Surgical Supplies Sterilizer Family [facility] 10/05/24 Virginia Reina APRN.POLE INCISOR OPERATOR [address] [place] [address] Surgical Supplies Sterilizer Family [facility] 10/05/24 Juan Miguel Yusuf MD [address] [place], [place] [address]2471 [phone] Hematology/Oncology 01/25/25 Maria Isabel Silverio RN [address] [place], [place] [id number] [phone] Specialty Flux Mixer Hematology/Oncology 01/25/25 Ayaz Nguyễn MD [address] [place], [place] [id number] General Surgery 02/04/25 Addison Holley LISW [address] [place] [address] Manifest Clerk Hematology/Oncology 02/05/25 Paulette Cagle, water sander Feed Management Advisor 02/15/25 Taper And Floater Relationship Specialty Start Date End Date Henok Martinez MD [address] [place] [address] PCP - General Family Medicine 09/14/21 Clarita Boggs APRN.POLE INCISOR OPERATOR [address] [facility] [place] [address] Surgical Supplies Sterilizer Family Medicine 10/05/24 Virginia Reina APRN.POLE INCISOR OPERATOR [address] [facility] [place] [address] Surgical Supplies Sterilizer Family Medicine 10/05/24 Juan Miguel Yusuf MD [address] [place] [address] Hematology/Oncology 01/25/25 Maria Isabel Silverio, MAGNUS [address] [place] [address] Specialty Flux Mixer Hematology/Oncology 01/25/25 Ayaz Nguyễn MD [address] [place] [address] General Surgery 02/04/25 Addison Holley LISW [address] [place] [address] Manifest Clerk Hematology/Oncology 02/05/25 Taper And Floater Relationship Specialty Start Date End Date Henok Martinez MD [address] [place] [address] PCP - General Family Medicine 09/14/21 Clarita Boggs APRN.POLE INCISOR OPERATOR [address] [facility] [place] [address] Surgical Supplies Sterilizer Family Medicine 10/05/24 Virginia Reina APRN.POLE INCISOR OPERATOR [address] [place] [address] Surgical Supplies Sterilizer Family Medicine 10/05/24 Juan Miguel Yusuf MD [address] [place] [address] Hematology/Oncology 01/25/25 Maria Isabel Silverio RN [address] [place] [address] Specialty Flux Mixer Hematology/Oncology 01/25/25 Ayaz Nguyễn MD [address] [place] [address] General Surgery 02/04/25 Addison Holley LISW [address] [place] [address] Manifest Clerk Hematology/Oncology 02/05/25 Taper And Floater Relationship Specialty Start Date End Date Henok Martinez MD [address] [place] [address] PCP - General Family Medicine 09/14/21 Clarita Boggs, SHY.POLE INCISOR OPERATOR [address] [place] [address] Surgical Supplies Sterilizer Family Medicine 10/05/24 Virginia Reina, LEAD JAVA SOFTWARE ENGINEER.POLE INCISOR OPERATOR [address] [place] [address] Surgical Supplies Sterilizer Family Medicine 10/05/24 Juan Miguel Yusuf MD [address] [place] [address] Hematology/Oncology 01/25/25 Maria Isabel Silverio, MAGNUS [address] [place] [address] Specialty Flux Mixer Hematology/Oncology 01/25/25 Ayaz Nguyễn MD [address] [place], [place] [id number] General Surgery 02/04/25 Addison Holley LISW [address] [place] [address] Manifest Clerk Hematology/Oncology 02/05/25 Taper And Floater Relationship Specialty Start Date End Date Henok Martinez MD [address] [facility] [address] PCP - General Family Medicine 09/14/21 Clarita Boggs LEAD JAVA SOFTWARE ENGINEER.POLE INCISOR OPERATOR [address] [facility] [place] [address] Surgical Supplies Sterilizer Family Medicine 10/05/24 Virginia Reina, LEAD JAVA SOFTWARE ENGINEER.POLE INCISOR OPERATOR [address] [facility] [address] Surgical Supplies Sterilizer Family Medicine 10/05/24 Juan Miguel Yusuf MD [address] [place] [facility] [place] [address] Hematology/Oncology 01/25/25 Maria Isabel Silverio, MAGNUS [address] [place] [facility] [place] [address] Specialty Flux Mixer Hematology/Oncology 01/25/25 Ayaz Nguyễn MD [address] [place], [place] [id number] General Surgery 02/04/25 Addison Holley, JOSÉ [address] [place] [address] Manifest Clerk Hematology/Oncology 02/05/25 Taper And Floater Relationship Specialty Start Date End Date Henok Martinez MD [address] [place] [address] PCP - General Family Medicine 09/14/21 Clarita Boggs APRN.POLE INCISOR OPERATOR [address] [place] [address] Surgical Supplies Sterilizer Family Medicine 10/05/24 Virginia Reina APRN.POLE INCISOR OPERATOR [address] [place] [address] Surgical Supplies Sterilizer Family Medicine 10/05/24 Juan Miguel Yusuf MD [address] [place] [address] Hematology/Oncology 01/25/25 Maria Isabel Silverio, MAGNUS [address] [place] [address] Specialty Flux Mixer Hematology/Oncology 01/25/25 Ayaz Nguyễn MD [address] [place], [place] [id number] General Surgery 02/04/25 Addison Holley LISW [address] [place] [address] Manifest Clerk Hematology/Oncology 02/05/25 Lamar Stoner MD [address] [place] [address] Physician Radiation Oncology 04/08/25 Taper And Floater Relationship Specialty Start Date End Date Henok Martinez MD [address] [place] [address] PCP - General Family Medicine 09/14/21 Clarita Boggs APRN.POLE INCISOR OPERATOR [address] [place] [address] Surgical Supplies Sterilizer Family Medicine 10/05/24 Virginia Reina APRN.POLE INCISOR OPERATOR [address] [place] [address] Surgical Supplies Sterilizer Family Medicine 10/05/24 Juan Miguel Yusuf MD [address] [place] [address] Hematology/Oncology 01/25/25 Maria Isabel Silverio RN [address] [place] [address] Specialty Flux Mixer Hematology/Oncology 01/25/25 Ayaz Nguyễn MD [address] [place] [address] General Surgery 02/04/25 Addison Holley LISW [address] [place] [address] Manifest Clerk Hematology/Oncology 02/05/25 Taper And Floater Relationship Specialty Start Date End Date Henok Martinez MD [address] [place] [address] PCP - General Family Medicine 09/14/21 Clarita Boggs APRN.POLE INCISOR OPERATOR [address] [place] [address] Surgical Supplies Sterilizer Family Medicine 10/05/24 Virginia Reina APRN.POLE INCISOR OPERATOR [address] [place] [address] Surgical Supplies Sterilizer Family Medicine 10/05/24 Juan Miguel Yusuf MD [address] [place] [address] Hematology/Oncology 01/25/25 Maria Isabel Silverio RN [address] [place] [address] Specialty Flux Mixer Hematology/Oncology 01/25/25 Ayaz Nguyễn MD [address] [place] [address] General Surgery 02/04/25 Addison Holley LISW [address] [place] [address] Manifest Clerk Hematology/Oncology 02/05/25 Lamar Stoner MD [address] [place] [address] Physician Radiation Oncology 04/08/25 Taper And Floater Relationship Specialty Start Date End Date Henok Martinez MD [address] [place] [address] PCP - General Family Medicine 09/14/21 Clarita Boggs, SHY.POLE INCISOR OPERATOR [address] [place] [address] Surgical Supplies Sterilizer Family Medicine 10/05/24 Virginia Reina, LEAD JAVA SOFTWARE ENGINEER.POLE INCISOR OPERATOR [address] [place] [address] Surgical Supplies Sterilizer Family Medicine 10/05/24 Juan Miguel Yusuf MD [address] [place] [address] Hematology/Oncology 01/25/25 Maria Isabel Silverio RN [address] [place] [address] Specialty Flux Mixer Hematology/Oncology 01/25/25 Ayaz Nguyễn MD [address] [place], [place] [id number] General Surgery 02/04/25 Addison Holley LISW [address] [place] [address] Manifest Clerk Hematology/Oncology 02/05/25 Lamar Stoner MD [address] [place] [facility] [place] [address] Physician Radiation Oncology 04/08/25 Taper And Floater Relationship Specialty Start Date End Date Henok Martinez MD [address] [facility] [address] PCP - General Family Medicine 09/14/21 Clarita Boggs, LEAD JAVA SOFTWARE ENGINEER.POLE INCISOR OPERATOR [address] [facility] [place] [address] Surgical Supplies Sterilizer Family Medicine 10/05/24 Virginia Reina, LEAD JAVA SOFTWARE ENGINEER.POLE INCISOR OPERATOR [address] [facility] [address] Surgical Supplies Sterilizer Family Medicine 10/05/24 Juan Miguel Yusuf MD [address] [place] [address] Hematology/Oncology 01/25/25 Maria Isabel Silverio, MAGNUS [address] [place] [facility] [place] [address] Specialty Flux Mixer Hematology/Oncology 01/25/25 Ayaz Ngyuễn MD [address] [place], [place] [id number] General Surgery 02/04/25 Addison Holley LISW [address] [place] [address] Manifest Clerk Hematology/Oncology 02/05/25 Lamar Stoner MD [address] [place] [address] Physician Radiation Oncology 04/08/25 Taper And Floater Relationship Specialty Start Date End Date Henok Martinez MD [address] [place] [address] PCP - General Family Medicine 09/14/21 Clarita Boggs APRN.POLE INCISOR OPERATOR [address] [place] [address] Surgical Supplies Sterilizer Family Medicine 10/05/24 Virginia Reina APRN.POLE INCISOR OPERATOR [address] [place] [address] Surgical Supplies Sterilizer Family Medicine 10/05/24 Juan Miguel Yusuf MD [address] [place] [address] Hematology/Oncology 01/25/25 Maria Isabel Silverio, MAGNUS [address] [place] [address] Specialty Flux Mixer Hematology/Oncology 01/25/25 Ayaz Nguyễn MD [address] [place] [address] General Surgery 02/04/25 Addison Holley LISW [address] [place] [address] Manifest Clerk Hematology/Oncology 02/05/25 Lamar Stoner MD [address] [place] [address] Physician Radiation Oncology 04/08/25 Taper And Floater Relationship Specialty Start Date End Date Henok Martinez MD [address] [place] [address] PCP - General Family Medicine 09/14/21 Clarita Boggs, SHY.POLE INCISOR OPERATOR [address] [place] [address] Surgical Supplies Sterilizer Family Medicine 10/05/24 Virginia Reina LEAD JAVA SOFTWARE ENGINEER.POLE INCISOR OPERATOR [address] [place] [address] Surgical Supplies Sterilizer [facility] 10/05/24 Juan Miguel Yusuf MD [address] [place] [address] Hematology/Oncology 01/25/25 Maria Isabel Silverio, RN [address] [place] [address] Specialty Flux Mixer Hematology/Oncology 01/25/25 Ayaz Nguyễn MD [address] [place], [place] [phone] General Surgery 02/04/25 Addison Holley LISW [address] [place] [address] Manifest Clerk Hematology/Oncology 02/05/25 Lamar Stoner MD [address] [place] [address] Physician Radiation Oncology 04/08/25 Taper And Floater Relationship Specialty Start Date End Date Henok Martinez MD [address] [facility] [place] [address] PCP - General Family Medicine 09/14/21 Clarita Boggs APRN.POLE INCISOR OPERATOR [address] [facility] [place] [address] Surgical Supplies Sterilizer Family [facility] 10/05/24 Virginia Reina APRN.POLE INCISOR OPERATOR [address] [facility] [place] [address] Surgical Supplies Sterilizer Family [facility] 10/05/24 Juan Miguel Yusuf MD [address] [address] Hematology/Oncology 01/25/25 Maria Isabel Silverio RN [address] [place] [address] Specialty Flux Mixer Hematology/Oncology 01/25/25 Ayaz Nguyễn MD [address] [place], [place] [id number] General Surgery 02/04/25 Addison Holley LISW [address] [place] [address] Manifest Clerk Hematology/Oncology 02/05/25 Lamar Stoner MD [address] [place] [address] Physician Radiation Oncology 04/08/25 Taper And Floater Relationship Specialty Start Date End Date Henok Martinez MD [address] [facility] [place] [address] PCP - General Family Medicine 09/14/21 Clarita Boggs APRN.POLE INCISOR OPERATOR [address] [facility] [place] [address] Surgical Supplies Sterilizer Family Medicine 10/05/24 Virginia Reina APRN.POLE INCISOR OPERATOR [address] [place] [address] Surgical Supplies Sterilizer Family Medicine 10/05/24 Juan Miguel Yusuf MD [address] [place] [address] Hematology/Oncology 01/25/25 Maria Isabel Silverio, MAGNUS [address] [place] [address] Specialty Flux Mixer Hematology/Oncology 01/25/25 Ayaz Nguyễn MD [address] [place], [place] [phone] General Surgery 02/04/25 Addison Holley LISW [address] [place] [address] Manifest Clerk Hematology/Oncology 02/05/25 Lamar Stoner MD [address] [place] [address] Physician Radiation Oncology 04/08/25 Taper And Floater Relationship Specialty Start Date End Date Henok Martinez MD [address] [place] [address] PCP - General Family Medicine 09/14/21 Clarita Boggs APRN.POLE INCISOR OPERATOR [address] [place] [address] Surgical Supplies Sterilizer Family Medicine 10/05/24 Virginia Reina LEAD JAVA SOFTWARE ENGINEER.POLE INCISOR OPERATOR [address] [place] [address] Surgical Supplies Sterilizer Family Medicine 10/05/24 Juan Miguel Yusuf MD [address] [place] [id number] Hematology/Oncology 01/25/25 Maria Isabel Silverio, MAGNUS [address] [place], [place] [address] Specialty Flux Mixer Hematology/Oncology 01/25/25 Ayaz Nguyễn MD [address] [place] [id number] General Surgery 02/04/25 Addison Holley LISW [address] [place] [address] Manifest Clerk Hematology/Oncology 02/05/25 Lamar Stoner MD [address] [place], [place] [id number] Physician Radiation Oncology 04/08/25 Goals (unrecognized section and content) Goals may be documented in a n alternate sectionGoals may be documented in an alternate sectionGoals may be documented in an alternate sectionGoals may be documented in an alternate sectionGoals may be documented in an alternate sectionGoals may be documented in an alternate section INFORMATION SOURCE (unrecogn ized section and content) DATE CREATED AUTHOR 02/17/2025 [facility] DATE CREATED AUTHOR AUTHOR'S ORGANIZ ATION 04/08/2025 [facility] DATE CREATED AUTHOR AUTHOR'S ORGANIZ ATION 04/17/2025 [facility] DATE CREATED AUTHOR AUTHOR'S ORGANIZ ATION 05/27/2025 [facility] FOR RECORDS PERTAINING TO PATIENTS WHO ARE OR HAVE BEEN ENROLLED IN A CHEMICAL DEPENDENCY/SUBSTANCEABUSE PROGRAM, SOME INFORMATION MAY BE OMITTED. This clinical summary was aggregated from multiple sources. Caution should be exercised in using it in the provision of clinical care. This summary normalizes information from multiple sources, and as a consequence, information in this document may materially change the coding, format and clinical context of patient data. In addition, data may be omitted in some cases. CLINICAL DECISIONS SHOULD BE BASED ON THE PRIMARY CLINICAL RECORDS. [facility]. provides no warranty or guarantee of the accuracy or completeness of information in this document.
[2025-05-30 22:51] LABS: Squamous Epithelial Cells - UA 5-10 SEEN /hpf (5-10)
[2025-05-30 22:57] LABS: AST(SGOT) 135 U/L (<=31); Alanine Aminotransfer ALT/SGPT 195 U/L (<=34); Albumin, Serum 3.9 g/dL (3.4-4.8); Alkaline Phosphatase 466 U/L (35-104); Anion Gap 14 (5-15); BUN 9 mg/dL (4-19); BUN/Creat Ratio 12.0 RATIO (10-20); Calcium,Total 9.1 mg/dL (7.6-11.0); Carbon Dioxide 20.0 mmol/L (21.0-32.0); Chloride 97 mmol/L (98-108); Differential Comment SCANNED; Estimated Creatinine Clearance 45.50 ml/min (50-250); Globulin 3.5 g/dL (2.2-4.2); Glucose 257 mg/dL (70-99); Potassium 3.1 mmol/L (3.3-5.1)
[2025-05-30 23:00] VITALS: BP 157/78; PULSE 87; RESP 20; TEMP 37.4; O2SAT 98
[2025-05-30 23:27] VITALS: BP 174/96; PULSE 88; RESP 21
--- NOTE | 2025-05-30 23:36 | CT_ITS ---
PROCEDURE: CT CHEST, ABD, PEL W/CONTRAST 05/30/2025 REASON FOR EXAM: FEVER, HX PANCREATIC CANCER TECHNIQUE: Chest, abdomen and pelvis CT with intravenous contrast. Coronal and Sagittal reconstruction series were provided. One or more dose reduction techniques were used (e.g., Automated exposure control, adjustment of the mA and/or kV according to patient size, use of iterative reconstruction technique. PATIENT PREPARATION: Per protocol ORAL CONTRAST TYPE: None. AMOUNT: mL CONTRAST: Isovue 370 VOLUME: 95mL Gauge IV RADIATION DOSE SUMMARY: CTDlvol: 43 mGy DLP: 1114 mGycm COMPARISON: Abdominopelvic CT 01/09/2025 FINDINGS: There is left axillary adenopathy, nonspecific. Advise correlation. Unremarkable base of neck and right axilla. Thoracic spine scoliosis and degeneration. Normal esophagus. Normal heart size. No acute vascular injury. No acute chest wall findings. Central airways are patent. Mild lower lobe bronchial wall thickening. Under aerated lungs. No contusion, pneumothorax, or pleural effusion. Unremarkable liver and gallbladder. Stable 5 mm liver hypodensity, series 3, image 26, favoring benign etiology. There is a biliary stent in good position. CBD is dilated up to 2 cm cross-section. There is pancreatic atrophy. There is a history of a pancreatic head mass which is not definitely seen, possibly indicating response to treatment. There is stable periportal adenopathy, nonspecific. Unremarkable spleen, adrenal glands, kidneys. Mild hydronephrosis possibly representing reflux. Well distended bladder. Status post hysterectomy. No retroperitoneal or pelvic adenopathy. No free air. Nonobstructed bowel. Status post appendectomy. No acute large bowel findings. Lumbar spine scoliosis and degeneration. CT/CT Chest, Abd, Pel w/Contrast IMPRESSION: Left axillary adenopathy, nonspecific. Possibly inflammatory in etiology. No acute chest injury is noted. Treated pancreatic head tumor is not well seen and may be decreased in size ind icating response to treatment. Biliary stent in good position. No abdominopelvic injury noted. Reading Location: [place] [address]
[2025-05-31] VITALS (10 sets, daily range): BP systolic 113–160; BP diastolic 54–81; PULSE 74–102; RESP 15–18; TEMP 36.4–37.6; O2SAT 94–100; BMI 29.0; BMI 29.2
[2025-05-31 00:17] LABS: Lipase 49 U/L (13-75)
[2025-05-31] MEDS: metroNIDAZOLE 500 MG/100 ML BAG 100 MG IV ×4 (00:23→20:59)
[2025-05-31] MEDS: levoFLOXacin IV 750 MG/150 ML BAG 100 MG IV (01:25)
--- NOTE | 2025-05-31 03:27 | HP.PCM.HOS_ITS ---
[facility] Date of Admission: 05/31/25 Date of Service: 05/31/25 Chief Complaint: Fever and Abdominal Pain. [facility] Narrative TELMA TINEO, is a 84 F with a past medical history of essential hypertension; on losartan, metoprolol BID and amlodipine, hyperlipidemia; on atorvastatin, overweight; with BMI of 29.9 this admission, remote history of tobacco abuse (quit 50+ years ago), DM-2; on 10U of 70/30 insulin daily, chronic atrial fibrillation; on apixaban, history of TIA/CVA x 2, mild cognitive impairment, history of Lundberg's palsy, history of Right atrial mass, history of asthma, history of appendectomy, history of uterine cancer, history of anoplasty, history of bladder surgery, history of hemorrhoidectomy, history of hysterectomy, history of blood transfusion, GERD; on pantoprazole, OA; with chronic neck pain and previous admission here from January 10, 2025 to January 11, [address] evidence of dilated hepatic and pancreatic ducts with an area of hypoattenuation in the head of the pancreas concerning for Pancreatic Carcinoma with additional evidence of mild hepatocellular disease with a markedly distended/hydropic gallbladder with corresponding laboratory evidence of Severe Hyperbilirubinemia; with total bilirubin of 9.78 mg/dL and direct bilirubin of 7.64 mg/dL in addition to Transaminitis; with AST of 308 units/L, ALT of 390 units/L and alkaline phosphatase of 416 units/L plus elevated lipase of 224 units/L suggestive of possible early pancreatitis with Hyperglycemia of 418 mg/dL all present on admission. She was then arranged for transfer to [facility] with patient confirmed to have pancreatic cancer; with subsequent pancreatic duct placed and patient started on chemotherapy - but then stopped her treatment ~2 months ago because of side effects who presents to [facility] ER complaining of fever and abdominal pain. Ms. Tineo reports her symptoms began approximately 1 day prior to admission with the abrupt-onset abdominal pain with fever and nausea. She states her urine is darker than normal and the abdominal discomfort is mild and generalized. She states she just returned from [place] ~8 days ago and was feeling well apparently using that visit the sake about her family members. In the ER she was noted to have severe Hyperbilirubinemia of 4.82 mg/dL along with evidence of Transaminitis; with AST 135 units/L, ALT 195 units/L and alkaline phosphatase 166 units/L suspected to be due to Acute Cholangitis in the setting of known Pancreatic Cancer with Leukocytosis of 13.9 K present on admission complicated by additional laboratory evidence of mild Hyponatremia of 131 mmol/L and mild Hypokalemia of 3.1 mmol/L with CT scan of the abdomen and pelvis revealing unremarkable liver and gallbladder with stable ~5 mm liver hypodensity with biliary stent in good position and CBD is dilated up to ~2 cm in cross- section with pancreatic atrophy and history of pancreatic head mass which is not definitely seen, possibly indicating response to treatment but stable periportal adenopathy that is nonspecific. The ER physician spoke directly with patient and multiple family members and they are agreeable to conservative treatment but do not want aggressive care or to transfer to a tertiary care center with the understanding that patient has cancer for which she is already abandoned treatment due to adverse side effects from chemotherapy. Therefore, palliative care will be consulted to see this patient this admission with help appreciated in advance. She was then admitted to the general medical floor for ongoing care for state that is expected to extend beyond 2 midnights. [facility] Medical History (Updated 05/31/25 @ 04:[address] Oniel Golden, DO) Type 2 diabetes mellitus with hyperglycemia Transaminitis Hyperbilirubinemia Pancreatic mass History of uterine cancer Overweight (BMI 25.0-29.9) Jaundice Elevated lipase Mass of head of pancreas Atrial fibrillation Neck pain, bilateral History of TIA (transient ischemic attack) Stroke/cerebrovascular accident Essential hypertension Complaint of melena Transient ischemic attack (03/2021) History of Lundberg's palsy GERD (gastroesophageal reflux disease) History of cancer History of blood transfusion Right atrial mass Former smoker Asthma Diabetes mellitus, type 2 Home Medications ?Medication ?Instructions ?Recorded ?Last Taken ?Type pantoprazole 40 mg tablet,delayed 40 mg PO DAILY gerd #90 tabs 08/28/21 Unknown Rx release atorvastatin 20 mg tablet 20 mg PO QHS hld 03/07/23 Un known History losartan 100 mg tablet 100 mg PO DAILY bp 03/07/23 Unknown History metoprolol tartrate 50 mg tablet 50 mg PO BID heart Unknown History apixaban 5 mg tablet 5 mg PO BID blood thinner #1 80 tabs 04/28/24 Unknown Rx amlodipine 10 mg tablet 10 mg PO DAILY bp #90 tabs 0 11/10/24 Unknown Rx Allergy/AdvReac Type Severity Reaction Status Date / Time Penicillins Allergy Severe Anaphylaxis Verified 05/30/25 21:31 tetracycline Allergy Severe anaphylaxis Verified 05/30/25 21:31 tramadol (From Ultram) AdvReac Severe syncope Verified 05/30/25 21:31 Family History Mother Pancreatic cancer CAD (coronary artery disease) Father Cancer Lung cancer Brother Parkinson disease Surgical History History of surgery H/O: hysterectomy H/O hemorrhoidectomy History of bladder surgery H/O rhinoplasty History of cataract surgery History of appendectomy Social History Smoking Status: Former smoker how long ago did patient quit smokin+ years alcohol intake: never substance use type: does not use ROS ROS Narrative Review of Systems: Constitutional: Patient admits to fever but denies chills or sweats. Eyes: Patient denies changes in vision or discharge from eyes. ENT: Patient denies runny nose, sore throat or ear pain. Resp: Patient denies shortness of breath or cough. CV: Patient denies chest pain, palpitations, heart racing or lower extremity edema. GI: Patient admits to nausea with mild abdominal pain but she denies diarrhea, constipation or vomiting. : Patient admits to darker urine but she denies dysuria, hematuria or urinary frequency. MSK: Patient admits to myalgias but she denies arthralgias. Skin: Patient admits to jaundice but she denies rash, abscess or wounds. Psych: Patient denies symptoms of uncontrolled depression or anxiety. Neuro: Patient denies headache, paresthesias or focal neurologic deficits. Allergy: Patient denies lip swelling, tongue swelling or urticaria. Hematology: Patient admits to easy bleeding and easy bruisability on apixaban. Endocrinology: Patient denies polyuria, polydipsia, polyphagia or heat/cold intolerance. 14 point ROS otherwise negative except for positives noted above in HPI. Vital Signs Vital Signs Vital Signs: 05/30/25 21:27 05/30/25 22:36 05/30/25 23:00 Temperature 100.1 F H 100.0 F H 99.4 F H Temperature Source Oral Oral Oral Pulse Rate 102 H 101 H 87 Respiratory Rate 18 20 H 20 H Blood Pressure 175/84 H 156/66 H 157/78 H Blood Pressure Mean 114 96 104 Pulse Ox 98 97 98 Oxygen Delivery Method Room Air Room Air Room Air 05/30/25 23:27 05/31/25 00:00 05/31/25 01:00 Temperature 99.6 F H 99.4 F H Temperature Source Temporal Oral Pulse Rate 88 86 83 Respiratory Rate 21 H 18 16 Blood Pressure 174/96 H 115/64 113/54 L Blood Pressure Mean 122 81 73 Pulse Ox 96 94 Oxygen Delivery Method Room Air Room Air 05/31/25 02:00 05/31/25 03:00 05/31/25 03:00 Temperature 98.9 F 98.7 F Temperature Source Axillary Temporal Pulse Rate 74 76 74 Respiratory Rate 16 15 Blood Pressure 132/55 H 120/58 L Blood Pressure Mean 80 78 Pulse Ox 96 100 Oxygen Delivery Method Room Air Room Air 05/31/25 03:19 Temperature 98.7 F Temperature Source Pulse Rate 78 Respiratory Rate 15 Blood Pressure 120/58 L Blood Pressure Mean 78 Pulse Ox 100 Oxygen Delivery Method Weight Weight: 153 lb Body Mass Index (BMI) 29.9 Physical Exam Const alert, oriented x3, no apparent distress and average body habitus Constitutional Narrative: Patient appears chronically ill. General Appearance: cooperative HEENT normocephalic, head/scalp atraumatic and hearing grossly normal bilaterally HEENT Narrative: Mucous membranes dry. Eyes PERRL and EOMs intact bilaterally Eyes Narrative: Patient has mild scleral icterus. Neck no lymphadenopathy, supple and no JVD Resp normal respiratory effort, no retractions, no use of accessory muscles and clear to auscultation bilaterally Cardio regular rate and regular rhythm GI normal to inspection, nondistended, normoactive bowel sounds, soft to palpation, non-tender and non-distended Extremity normal to inspection, full ROM and no clubbing, cyanosis or edema Skin Skin Narrative: Patient has no evidence of rash, abscess or wounds. Neuro oriented x3, CN's II-XII intact bilaterally, moves all extremities and no focal motor deficits Sensorium / Orientation: awake, alert, oriented to person, oriented to place and oriented to time Speech: speech normal Psych affect normal Results Medical Records Data Attestation: I reviewed the patient's medical records Lab / Micro Data Attestation: I reviewed the patient's lab results. 05/30/25 21:55 05/30/25 21:55 Labs: Laboratory Results - last 24 hr 05/30/25 21:55: WBC 13.9 H, RBC 4.13 L, Hgb 11.1 L, Hct 33.8 L, MCV 81.8, MCH 26.9 L, MCHC 32.8, RDW Std Deviation 44.9 H, RDW Coeff of [place] 14.9 H, Plt Count 185, MPV 12.7 H, Immature Gran % (Auto) 0.500, Neut % (Auto) 84.7 H, Lymph % (Auto) 3.3 L, Wilkin % (Auto) 11.4 H, Eos % (Auto) 0.0, Baso % (Auto) 0.1, A bsolute Neuts (auto) 11.7 H, Absolute Lymphs (auto) 0.46 L, Nucleated RBC % 0, Differential Comment SCANNED, Sodium 131 L, Potassium 3.1 L, Chloride 97 L, C arbon Dioxide 20.0 L, Anion Gap 14, BUN 9, Creatinine 0.74, Estim Creat Clear Calc 45.50 L, Est GFR (MDRD) Non-Af 80, BUN/Creatinine Ratio 12.0, Glucose 257 H , Lactic Acid 1.6, Calcium 9.1, Total Bilirubin 4.82 H, AST 135 H, ALT 195 H, A lkaline Phosphatase 466 H, Total Protein 7.3, Albumin 3.9, Globulin 3.5, Albumin/Globulin Ratio 1.1, Lipase 49 05/30/25 22:38: Urine Color Yellow, Urine Clarity Clear, Urine pH 7.0, Ur Specific [place] 1.005, Urine Protein 30 H, Urine Glucose (UA) 1000 H, Urine Ketones Negative, Urine Occult Blood 25 H, Urine Nitrite Negative, Urine Bilirubin Negative, Urine Urobilinogen Normal, Ur Leukocyte Esterase Negative, Urine RBC 0 SEEN, Urine WBC 0 SEEN, Ur Squamous Epith Cells 5-10 SEEN, Urine Bacteria 2+, Urine Mucus 0 SEEN Micro: Microbiology 05/30/25 22:15 Mucosa - Nose SARS-CoV-2, Influenza & RSV (PCR) - Final Imaging Radiology Impression Chest/Abdomen/Pelvis CT 05/30/25 23:36 IMPRESSION: Left axillary adenopathy, nonspecific. Possibly inflammatory in etiology. No acute chest injury is noted. Treated pancreatic head tumor is not well seen and may be decreased in size indicating response to treatment. Biliary stent in good position. No abdominopelvic injury noted. Reading Location: [place] [id number] Assessment & Plan Assessment/Plan (1) Cholangiolitis: (2) Hyperbilirubinemia: (3) Transaminitis: (4) Leukocytosis: QUALIFIERS: Leukocytosis type: unspecified Qualified Code(s): D 72.829 - Elevated white blood cell count, unspecified (5) Pancreatic cancer: QUALIFIERS: Pancreatic malignancy location: unspecified Qualified Code(s): C25.9 - Malignant 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, unspecified (6) Hyponatremia: (7) Hypokalemia: (8) Type 2 diabetes mellitus with hyperglycemia: QUALIFIERS: Diabetes mellitus usp insulin use: without termite control service representative use Qualified Code(s): E11.65 - Type 2 diabetes mellitus with hyperglycemia PLAN: Plan 1. Hyperbilirubinemia of 4.82 mg/dL along with evidence of Transaminitis; with AST 135 units/L, ALT 195 units/L and alkaline phosphatase 166 units/L suspected to be due to Acute Cholangitis in the setting of known Pancreatic Cancer with Leukocytosis of 13.9 K present on admission with CT scan of the abdomen and pelvis revealing unremarkable liver and gallbladder with stable ~5 mm liver hypodensity with biliary stent in good position and CBD is dilated up to ~2 cm in cross-section with pancreatic atrophy and history of pancreatic head mass which is not definitely seen, possibly indicating response to treatment but stable periportal adenopathy that is nonspecific - Admit to general medical floor. Keep strict NPO. Continue empiric IV levofloxacin and IV metronidazole begun in ER in light of PCN allergy (anaphylaxis) and await culture and sensitivity data. Give pantoprazole 40 mg IV daily for GI prophylaxis. Give prochlorperazine IV as needed for nausea vomiting. Give ketorolac IV as needed for [id number] (level 1-5/10) pain or fever. Give morphine IV as needed for severe (level 6-10/10) pain. Finally, we will consult palliative care see this patient on rounds in the a.m. with the patient already making herself DNR- CCA; without intubation CODE STATUS in the ER with help appreciated in advance. 2. Previous admission here from January 10, 2025 to January 11, [address] evidence of dilated hepatic and pancreatic ducts with an area of hypoattenuation in the head of the pancreas concerning for Pancreatic Carcinoma with additional evidence of mild hepatocellular disease with a markedly distended/hydropic gallbladder with corresponding laboratory evidence of Severe Hyperbilirubinemia; with total bilirubin of 9.78 mg/dL and direct bilirubin of 7.64 mg/dL in addition to Transaminitis; with AST of 308 units/L, ALT of 390 units/L and alkaline phosphatase of 416 units/L plus elevated lipase of 224 units/L suggestive of possible early pancreatitis with Hyperglycemia of 418 mg/dL all present on admission. She was then arranged for transfer to [facility] with patient confirmed to have pancreatic cancer; with subsequent pancreatic duct placed and patient started on chemotherapy - but then stopped her treatment ~2 months ago because of side effects complicating #1 - Noted. 3. Hyponatremia of 131 mmol/L present on admission - Give NS IV fluid and recheck level in a.m. to ensure improvement. 4. Hypokalemia of 3.1 mmol/L present on admission - Add KCl to NS and recheck level in a.m. to confirm repletion. 5. DM-2; on 10U of 70/30 insulin daily with hyperglycemia of 257 mg/dL present on admission - Cover with lowest intensity SSI with FSBS q. 6 hours while NPO. 6. Chronic Atrial Fibrillation; on apixaban - Hold apixaban with patient NPO. We will not give full-dose LMWH due to pending palliative care consultation and desire for conservative medical treatment. 7. Essential hypertension; on losartan, metoprolol BID and amlodipine - Hold oral antihypertensives in light of patient being NPO. Give hydralazine IV as needed for systolic blood pressure greater than 160 mmHg. 8. Hyperlipidemia; on atorvastatin - Stop statin. 9. Overweight; with BMI of 29.9 this admission - Noted with weight loss unlikely given patient's condition. 10. Remote history of tobacco abuse (quit 50+ years ago) - Noted. 11. 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 13. History of Right atrial mass - Noted. 14. History of asthma - Stable and without evidence of acute flare at this time. Give nebulizes prn. 15. History of appendectomy - Noted. 16. History of uterine cancer - Noted. 17. History of anoplasty - Stable. 18. History of bladder surgery - Noted. 19. History of hemorrhoidectomy - Noted. 20. History of hysterectomy - Noted for the sake of completeness. 21. History of blood transfusion - Noted. 22. GERD; on pantoprazole - Patient started on IV PPI for #1. 23. OA; with chronic neck pain - We will follow pain regimen and scales outlined in #1. 24. DVT prophylaxis - Give enoxaparin 40 mg sq daily plus SCD's. Total time: Approximately (but not less than) 75 minutes. Charges/Coding Visit Charges Inpatient E&M: 77796 Init Hosp L3
--- OUTSIDE RECORDS SUMMARY | 2025-05-31 04:19 | XMS RPT_ITS | CCD ---
Author Organization [facility] Care Team Providers Care Event Promoter Name Role Phone Henok Martinez MD Primary Care Provider Michelle, Dr. Figueredo Primary Care Provider Dr. Henok Martinez Referring Provider Dr. Zachary Sarabia Attending Provider Henok Martinez MD Primary Care Provider Dr. Henok Martinez Primary Care Provider Dr. Henok Martinez Referring Provider Dr. Jatinder Khan Attending Provider Henok Martinez MD Primary Care Provider Dr. Henok Martinez Primary Care Provider Michelle, Dr. Figueredo Referring Provider Dr. Zachary Sarabia Attending Provider Haagen CORPORATE DIRECTOR TALENT ASSESSMENT.CARTRIDGE FILLER, Clarita Unavailable Suppan CORPORATE DIRECTOR TALENT ASSESSMENT.CARTRIDGE FILLER, Virginia A Unavailable [phone] Suppan CORPORATE DIRECTOR TALENT ASSESSMENT.CARTRIDGE FILLER, Virginia A Unavailable Suppan CORPORATE DIRECTOR TALENT ASSESSMENT.CARTRIDGE FILLER, Virginia A Unavailable [phone] Humberto RN, Brett Unavailable Dr. Henok Martinez MD Primary Care Provider Dr. Henok Martienz MD Attending Provider Dr. Henok Martinez MD Referring Provider Dr. Hung Remy DO Emergency Provider Golden DO, Dr. Oniel Admit Provider Unavail able de David DO, Dr. Engle Attending Provider Unav ailable Jonel DO, Dr. Persaud Emergency Provider de David DO, Dr. Engle Admit Provider Unavail able de David DO, Dr. Engle Other Provider Unavail able Terlizzie DO, Dr. Garcia Attending Provider [phone] Booker DO, Dr. Hussein Other Provider Jazmin DO, Dr. Garcia Other Provider Stephanie DO, Dr. Rueda Attending Provider Arun AGUDELO, Stuart Trevino Unavailable Unavailable Paramjit HELMS, Juan Miguel Unavailable [phone] Royer AGUDELO, Maria Isabel Unavailable [phone] Escobar Rayo Unavailable Unavailable Ayaz Nguyễn MD [...] Golden Admitting Unavailable Oniel Golden Referring Unavailable Angier, Henok Primary Care Unavailable Keenan Celeste Consulting Unavailable Jose Wu Consulting Unavailable Jose Wu Attending Unavailable Michelle, Henok Referring Unavailable Michelle, Henok Attending Unavailable Michelle, Henok Primary Care Unavailable Michelle, Henok Primary Care Unavailable Guille Garnica Attending Unavailable Oniel Golden Admitting Unavailable de Oniel Hernandez Consulting Unavailable Angier, Henok Primary Care Unavailable Jose Wu Attending Unavailable Keenan Celeste Consulting Unavailable Angier, Henok Primary Care Unavailable Cornell, Zachary Attending Unavailable Babatunde Worthington Referring Unavailable Michelle, Henok Referring Unavailable Angier, Henok Primary Care Unavailable Cornell, Zachary Attending Unavailable Jatinder Khan Referring Unavailable Jatinder Khan Attending Unavailable Angier, Henok Primary Care Unavailable de Oniel Hernandez [...] Care Unavailable JUAN MIGUEL YUSUF Referring Unavailable MICHLELE, HENOK Becerril Attending Unavailable MICHELLE, HENOK Becerril [...] Penicillins; Translations: [PENICILLINS] Drug Allergy 1 Anaphylaxis [facility] (20 sources) Tetracycline; Translations: [TETRACYCLINE] Drug Allergy 1 Rash [facility] (20 sources) Penicillins Drug Allergy 1 Anaphylaxis [facility] (8 sources) Penicillins Allergy to substance [address] [facility] (20 sources) traMADol; Translations: [TRAMADOL] Drug Allergy 4 Intolerance [facility] (20 sources) Penicillins Drug Allergy 1 Anaphylaxis [facility] (1 source) Penicillins Drug allergy (disorder) 5 [facility] (1 source) Tetracycline Drug Allergy 5 [facility] (1 source) traMADol Drug Allergy 5 [facility] Medications Current Medications Medication [...] 20 mg/ml oral solution (3 sources) Uncompetitive N-txxdud-P-aspartate Receptor Antagonist, Sigma-1 Agonist Start: 02-14-2025 End: 02-19-2025 take 10 mL by mouth every four hours as needed guaiFENesin-dextromethorphan (ROBITUSSIN DM) 100-10 mg/5 mL syrup Take 10 mL by mouth every 4 hours as needed for cough for up to 5 days. 200 mL 02/14/2025 02/19/2025 Active dextromethorphan hydrobromide 3 mg/ml / promethazine hydrochloride 1.25 mg/ml oral solution (20 sources) Phenothiazine, Uncompetitive R-aclhgr-X-aspartate Receptor Antagonist, Sigma-1 Agonist Start: 02-24-2025 take [...] mouth once daily. Take 1 tablet by [facility] once daily. phenylephrine hydrochloride 25 mg/ml ophthalmic [...] Comment on above: Take 1 capsule by [facility] once daily. hypromellose 0.003 mg/mg ophthalmic gel [...] Comment on above: Take 1 tablet by [facility] once daily. methylsulfonylmethane 1000 mg oral capsule (20 sources) take 1 capsule by mouth once daily Methylsulfonylmethane (MSM) 1,000 mg cap Take 1 capsule by mouth once daily. Suspended Comment on above: Take 1 capsule by [facility] once daily. PACLitaxel 100 mg injection (2 [...] Irritant with Vesicant Potential. polyethylene glycol 3350 [id number] mg / potassium chloride 2970 mg / sodium bicarbonate 6740 mg / sodium chloride 5860 mg / sodium sulfate 14470 mg powder for oral solution (1 source) [...] sources) Long-term current use of anticoagulant; Translations: [intermediate (current) use of anticoagulants] Onset: 05-20-2023 04-08-2023 Episodic Other aftercare (2 sources) intermediate (current) use of insulin; Translations: [Type 2 diabetes mellitus with hyperglycemia, with long-term current use of insulin (HCC)] Onset: 01-18-2025 Episodic Other aftercare (1 source) intermediate (current) use of anticoagulants; Translations: [intermediate current use of anticoagulant therapy] Onset: 05-20-2023 [...] Test Name Value Interpretation Reference Range Facility [facility] 05-25-2025 CNOVSP Visit (SP) Office (H EMAWS) -- TELMA TINEO ([id number]) 1940 F Date Time Provider Department 05/25/25 [...] presented with painless jaundice, admitted initially at [facility], transferred for further work up at [facility]. Saw hepatobiliary surgery there, noted pancreatic mass. [...] 2 times (more content not included)... Normal [facility] 05-25-2025 [facility] Telephone (GSTNOR) -- TELMA TINEO ([id number]) 1940 F Date Time Provider Department 05/25/25 [...] but she cancelled because she was in [place]. LM to call me back. Fatoumata Glynn [...] - Blood-Glucose Meter,Continuous (FREESTYLE TOLU 3 READER) [facility] Use to check blood sugar at least [...] once daily. - Blood Pressure Test Kit-Large (Pivot ARM BP MONITOR) 1 Each once daily. [...] 05/20/2023 05/20/2023 (more content not included)... Normal [facility] Cancer Ag19-9 SerPl-aCncon 0 05-25-2025 Cancer Ag 19-9 Qn 121.0 [arb'U]/mL High <36.0 C [facility] Comment on above: Order Comment: Speci men Type: BLOOD SPECIMEN Ordering Facility: [facility] Address: [address] [place] [address] Result Comment: [facility] er antigen 19-9 test is used as an aid in monitoring response to treatment or recurrence in patients with established pancreatic, hepatobiliary, or gastrointestinal malignancies. Clinical correlation is required. The CA 19-9 Antigen test was performed using the [employer]TRAP[employer] Unicel DXI paramagnetic particle chemiluminescent immunoassay method. Results obtained with different assay methods or kits cannot be used interchangeably. Performed By: #### 5 7021-8 #### [facility] CLIA [id number] [address] [place] [address] [place] Creatinine and Glomerular fi ltration rate.predicted panel (S/P/Bld)Ordered By: Angelia Paez on 05-25-2025 Creatinine [Mass/Vol] 0.59 mg/dL 0.58 - 0.96 mg/dL [facility] GFR/1.73 sq M.predicted among non-blacks MDRD (S/P/Bld) [Vol rate/Area] 89 mL/min/{1.73_m2} - PINF [facility] Comment on above: Estimated Glomerular Filtration Rate [...] Interpretation and review of laboratory results Normal [facility] Creatinine and Glomerular fi ltration rate.predicted panel (S/P/Bld)on 05-25-2025 Creatinine [Mass/Vol] 0.59 mg/dL Normal 0.58-0.96 [facility] Comment on above: Order Comment: Speci men Type: BLOOD SPECIMEN Ordering Facility: [facility] Address: [address] [place] [address] Performed By: #### 5 7021-8 #### [facility] [id number] [address] [place] [address] [place] eGFRcr SerPlBld CKD-EPI 2020 89 mL/min/1.73m??? Normal >=60 [facility] Comment on above: Order Comment: Speci men Type: BLOOD SPECIMEN Ordering Facility: [facility] Address: [address] [place] [address] Result Comment: Kya mated Glomerular Filtration Rate [...] GFR. Performed By: #### 5 7021-8 #### [facility] [id number] [address] [place] [address] [place] REFERRAL FOR ADDITIONAL BIOM ARKER AND MOLECULAR TESTINGOrdered By: Darien Starks on 05-25-2025 APMOLR [facility] Comment on above: Request has been rec eived for evaluation and the results will be issued separately. [facility] REFERRAL FOR ADDITIONAL BIOM ARKER AND MOLECULAR TESTINGon 05-25-2025 REFERRAL FOR ADDITIONAL BIOMARKER AND MOLECULAR TESTING Normal [facility] Comment on above: Order Comment: Speci men Type: BLOOD SPECIMEN Ordering Facility: [facility] Address: [address] [place] [address] Result Comment: Requ est has been received for evaluation and the results will be issued separately. Performed By: #### 5 7021-8 #### [facility] PAOLA [id number] [address] [place] [address] [place] Lenin 05-13-2025 CNPN Telephone (LUKE) -- TELMA TINEO ([id number]) 1940 F Date Time Provider Department 05/13/25 [...] reschedule with Dr. Diaz in GI at [place]? Please call Sujata or Timothy to schedule. [...] - Blood-Glucose Meter,Continuous (FREESTYLE TOLU 3 READER) [facility] Use to check blood sugar at least [...] once daily. - Blood Pressure Test Kit-Large (Pivot ARM BP MONITOR) 1 Each once daily. 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 Allergies As of Date: [...] - Blood-Glucose Meter,Continuous (FREESTYLE TOLU 3 READER) [facility] Use to check blood sugar at least [...] once daily. - Blood Pressure Test Kit-Large (Pivot ARM BP MONITOR) 1 Each once daily. [...] 05/20/2023 Impaired cognition [R41.89] 05/20/2023 Diagnosed: 05/20/2023 intermediate current use of anticoagulant therapy *05/20/2023 Diagnosed: [...] Status:Closed by MARIA ISABEL SILVERIO on 04/08/25 [facility] CNOValbert 04-06-2025 CNOV [facility] CNPClarissa 04-06-2025 CNPN Telephone (GSTNOR) -- TELMA TINEO ([id number]) 1940 F Date Time Provider Department 04/06/25 ANEL DIZA During your visit today, we recorded the [...] - Blood-Glucose Meter,Continuous (FREESTYLE TOLU 3 READER) [facility] Use to check blood sugar at least [...] once daily. - Blood Pressure Test Kit-Large ([place] Biomass ExchangeLIFE ARM BP MONITOR) 1 Each once daily. 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 Normal [facility] CNOVon 03-30-2025 CNOV Office Visit (FAMPWS ) -- TELMA TINEO ([id number]) 1940 F Date Time Provider Department 03/30/25 [...] mouth once daily. Blood Pressure Test Kit-Large (Pivot ARM BP MONITOR) 1 Each once daily. [...] Used Sub (more content not included)... Normal [facility] XR CHEST 2V FRONTAL/LATon XR CHEST [...] tissues: Unremarkable. IMPRESSION: No acute radiographic abnormality. Wallpaper Consultant: AMBER Transcribe Date/Time: Mar 19 2025 12:53P Dictated by : FAIZAN CLAROS MD This examination was interpreted and the report reviewed and electronically signed by: FAIZAN CLAROS MD on Mar 19 2025 12:54PM EST [id number] [facility] -- TELMA TINEO ([id number]) 1940 F Date Time Provider Department 03/15/25 JUAN MIGUEL YUSUF During your visit today, we recorded the following information about you: Jeanna Glynn, MAGNUS 03/15/2025 9:20 AM Signed Spoke with Telma's son, Timothy, over the phone. He forgot about Telma's appointment and states she is not coming in for her office visit with [facility] today or for labs. She is now considering not pursuing chemotherapy treatment. She returned from out of state last night and she is leaving for [place] 03/18 to say goodbyes to her family. Son thinks she may end up staying in [place] but is not sure. Maria Isabel Silverio, [...] Blood-Glucose Sensor (FREESTYLE TOLU 3 PLUS SENSOR) bejnamin Apply new sensor every fifteen (15) days [...] once daily. - Blood Pressure Test Kit-Large (Pivot ARM BP MONITOR) 1 Each once daily. 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 Normal [facility] CNPNon 03-02-2025 CNPN Telephone (LUKE) -- TELMA TINEO ([id number]) 1940 F Date Time Provider Department 03/02/25 JUAN MIGUEL YUSUF During your visit today, we recorded the following information about you: Trevor Reynoso 03/02/2025 3:31 PM Signed Timothy called asking if okay for patient to travel to [place] within the next few days by car. Please call him and advise. Maria Isabel Silverio, MAGNUS 03/03/2025 9:30 AM Signed Maria Isabel Silverio, MAGNUS 03/03/2025 9:30 AM Signed Call to Timothy, aware ok for travel to [place]. He states she is planning to be [...] Fully Assessed Reason for Visit: Patient Question [7447] Prescriptions as of 03/15/2025 - sucralfate (CARAFATE) [...] once daily. - Blood Pressure Test Kit-Large (Pivot ARM BP MONITOR) 1 Each once daily. 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 Normal [facility] CNOVon 02-24-2025 CNOV Office Visit (FAMPWS ) -- TELMA TINEO ([id number]) 1940 F Date Time Provider Department 02/24/25 11:00 AM HENOK MARTINEZ FAMPWS During your visit today, we recorded the following information about you: Pulse Blood pressure Weight 77/minute 118/72 67.1 kg Henok Martinez MD 02/24/2025 11:45 AM Signed No chief complaint on file. HPI: Patient presents today for office visit for hospital follow up. HOSPITAL/ER FOLLOW UP: Reason for visit: pneumonia Which facility: [facility] Date of visit: 02/11/25-02/14/25 Diagnosis: acute [...] sugar. Blood-Glucose Meter,Continuous (FREESTYLE TOLU 3 READER) [facility] Use to check blood sugar at least [...] mouth once daily. Blood Pressure Test Kit-Large ([place] [employer]ass ExchangeLIFE ARM BP MONITOR) 1 Each once daily. [...] HX w (more content not included)... Normal [facility] 02-23-2025 [facility]ELMA TINEO ([id number]) 1940 F Date Time Provider Department 02/23/25 [facility] During your visit today, we recorded the following information about you: Jose Ortiz LPN 02/23/2025 10:13 AM Signed Pt was scheduled for 20min 4c Est continued cough follow up. On 02/24/25. Pt was actually admitted to [facility] 02/10/25 and dc'd on 02/14/25 with a diagnosis of pneumonia and RSV. Pt needs rescheduled for a 4c Est Hosp/ER follow up. PETE Degroot Nat 02/23/2025 3:00 PM Signed Spoke with patient's son and rescheduled with Dr. Becker as patient will only see MD's/DO's and not FIRE OFFICER's. Nat Solis Allergies As of Date: 02/23/2025 [...] - Blood-Glucose Meter,Continuous (FREESTYLE TOLU 3 READER) [facility] Use to check blood sugar at least [...] once daily. - Blood Pressure Test Kit-Large (Pivot ARM BP MONITOR) 1 Each once daily. 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 [...] - Blood-Glucose Meter,Continuous (FREESTYLE TOLU 3 READER) [facility] Use to check blood sugar at least [...] once daily. - Blood Pressure Test Kit-Large (Pivot ARM BP MONITOR) 1 Each once daily. [...] 05/20/2023 Impaired cognition [R41.89] 05/20/2023 Diagnosed: 05/20/2023 intermediate current use of anticoagulant therapy *05/20/2023 Diagnosed: [...] Status:Closed by SHABNAM RUIZ on 02/24/25 Normal [facility] CBC W Auto Differential pane l (Bld)on 02-22-2025 Basophils (Bld) [#/Vol] 0.12 10*3/uL High [facility] Basophils/100 WBC (Bld) 1.2 % [facility] Differential cell count method Nom (Bld) Auto [facility] Eosinophils (Bld) [#/Vol] 0.1 10*3/uL [facility] Eosinophils/100 WBC (Bld) 1 % [facility] Erythrocyte distribution width (RBC) [Ratio] 15.2 % High 11.5 - 15.0 % [facility] Hematocrit (Bld) [Volume fraction] 31.5 % Low 36.0 - 46.0 % [facility] Hemoglobin (Bld) [Mass/Vol] 10.3 g/dL Low 11.5 - 15.5 g/dL [facility] Immature granulocytes (Bld) [#/Vol] 0.19 10*3/uL High NINF [facility] Immature granulocytes/100 WBC (Bld) 1.9 % [facility] Interpretation and review of laboratory results Abnormal [facility] Lymphocytes (Bld) [#/Vol] 1.57 10*3/uL [facility] Lymphocytes/100 WBC (Bld) 16 % [facility] MCH (RBC) [Entitic mass] 29.6 pg 26.0 - 34.0 pg [facility] MCHC (RBC) [Mass/Vol] 32.7 g/dL 30.5 - 36.0 g/dL [facility] MCV (RBC) [Entitic vol] 90.5 fL 80.0 - 100.0 fL [facility] Monocytes (Bld) [#/Vol] 1.28 10*3/uL High [facility] Monocytes/100 WBC (Bld) 13 % [facility] Neutrophils (Bld) [#/Vol] 6.58 10*3/uL [facility] Neutrophils/100 WBC (Bld) 66.9 % [facility] Nucleated RBC (Bld) [#/Vol] NINF [facility] Nucleated RBC/100 WBC (Bld) [Ratio] 0 % /100 WBC [facility] Platelet mean volume (Bld) [Entitic vol] 10.2 fL 9.0 - 12.7 fL [facility] Platelets (Bld) [#/Vol] 677 10*3/uL High [facility] RBC (Bld) [#/Vol] 3.48 10*6/uL Low 3.90 - 5.2 0 m/uL [facility] WBC (Bld) [#/Vol] 9.84 10*3/uL [facility] Basophils (Bld) [#/Vol] 0.12 10*3/uL High <0.11 [facility] Comment on above: Order Comment: Speci men Type: BLOOD SPECIMEN Ordering Facility: [facility] Address: [address] [place] [address] Performed By: #### 5 7021-8 #### [facility] CLIA [id number] [address] [place] [address] [place] Basophils/100 WBC (Bld) 1.2 % Normal [facility] Comment on above: Order Comment: Speci men Type: BLOOD SPECIMEN Ordering Facility: [facility] Address: [address] [place] [address] Performed By: #### 5 7021-8 #### [facility] CLIA [id number] [address] [place] [address] [place] Differential cell count method Nom (Bld) Auto Normal [facility] Comment on above: Order Comment: Speci men Type: BLOOD SPECIMEN Ordering Facility: [facility] Address: [address] [place] [address] Performed By: #### 5 7021-8 #### [facility] CLIA [id number] [address] [place] [address] [place] Eosinophils (Bld) [#/Vol] 0.10 10*3/uL Normal <0.46 [facility] Comment on above: Order Comment: Speci men Type: BLOOD SPECIMEN Ordering Facility: [facility] Address: [address] [place] [address] Performed By: #### 5 7021-8 #### [facility] CLIA [id number] [address] [place] [address] [place] Eosinophils/100 WBC (Bld) 1.0 % Normal [facility] Comment on above: Order Comment: Speci men Type: BLOOD SPECIMEN Ordering Facility: [facility] Address: [address] [place] [address] Performed By: #### 5 7021-8 #### [facility] CLIA [id number] [address] [place] [address] [place] Erythrocyte distribution width (RBC) [Ratio] 15.2 % High 11.5-15.0 [facility] Comment on above: Order Comment: Speci men Type: BLOOD SPECIMEN Ordering Facility: [facility] Address: [address] [place] [address] Performed By: #### 5 7021-8 #### [facility] CLIA [id number] [address] [place] [address] [place] Hematocrit (Bld) [Volume fraction] 31.5 % Low 36.0-46.0 [facility] Comment on above: Order Comment: Speci men Type: BLOOD SPECIMEN Ordering Facility: [facility] Address: [address] [place] [address] Performed By: #### 5 7021-8 #### [facility] CLIA [id number] [address] [place] [address] [place] Hemoglobin (Bld) [Mass/Vol] 10.3 g/dL Low 11.5-15.5 [facility] Comment on above: Order Comment: Speci men Type: BLOOD SPECIMEN Ordering Facility: [facility] Address: [address] [place] [address] Performed By: #### 5 7021-8 #### [facility] CLIA [id number] [address] [place] [address] [place] Immature granulocytes (Bld) [#/Vol] 0.19 10*3/uL High <0.10 [facility] Comment on above: Order Comment: Speci men Type: BLOOD SPECIMEN Ordering Facility: [facility] Address: [address] [place] [address] Performed By: #### 5 7021-8 #### [facility] CLIA [id number] [address] [place] [address] [place] Immature granulocytes/100 WBC (Bld) 1.9 % Normal [facility] Comment on above: Order Comment: Speci men Type: BLOOD SPECIMEN Ordering Facility: [facility] Address: [address] [place] [address] Performed By: #### 5 7021-8 #### [facility] CLIA [id number] [address] [place], [place] [address] [place] Lymphocytes (Bld) [#/Vol] 1.57 10*3/uL Normal 1.00-4.00 [facility] Comment on above: Order Comment: Speci men Type: BLOOD SPECIMEN Ordering Facility: [facility] Address: [address] [place] [address] Performed By: #### 5 7021-8 #### [facility] CLIA [id number] [address] [place] [address] [place] Lymphocytes/100 WBC (Bld) 16.0 % Normal [facility] Comment on above: Order Comment: Speci men Type: BLOOD SPECIMEN Ordering Facility: [facility] Address: [address] [place] [address] Performed By: #### 5 7021-8 #### [facility] CLIA [id number] [address] [place] [address] [place] MCH (RBC) [Entitic mass] 29.6 pg Normal 26.0-34.0 [facility] Comment on above: Order Comment: Speci men Type: BLOOD SPECIMEN Ordering Facility: [facility] Address: [address] [place] [address] Performed By: #### 5 7021-8 #### [facility] CLIA [id number] [address] [place] [address] [place] MCHC (RBC) [Mass/Vol] 32.7 g/dL Normal 30.5-36.0 [facility] Comment on above: Order Comment: Speci men Type: BLOOD SPECIMEN Ordering Facility: [facility] Address: [address] [place] [address] Performed By: #### 5 7021-8 #### [facility] CLIA [id number] [address] [place] [address] [place] MCV (RBC) [Entitic vol] 90.5 fL Normal 80.0-100.0 [facility] Comment on above: Order Comment: Speci men Type: BLOOD SPECIMEN Ordering Facility: [facility] Address: [address] [place] [address] Performed By: #### 5 7021-8 #### [facility] CLIA [id number] [address] [place] [address] [place] Monocytes (Bld) [#/Vol] 1.28 10*3/uL High <0.87 [facility] Comment on above: Order Comment: Speci men Type: BLOOD SPECIMEN Ordering Facility: [facility] Address: [address] [place] [address] Performed By: #### 5 7021-8 #### [facility] CLIA [id number] [address] [place] [address] [place] Monocytes/100 WBC (Bld) 13.0 % Normal [facility] Comment on above: Order Comment: Speci men Type: BLOOD SPECIMEN Ordering Facility: [facility] Address: [address] [place] [address] Performed By: #### 5 7021-8 #### [facility] CLIA [id number] [address] [place] [address] [place] Neutrophils (Bld) [#/Vol] 6.58 10*3/uL Normal 1.45-7.50 [facility] Comment on above: Order Comment: Speci men Type: BLOOD SPECIMEN Ordering Facility: [facility] Address: [address] [place] [address] Performed By: #### 5 7021-8 #### [facility] CLIA [id number] [address] [place] [address] [place] Neutrophils/100 WBC (Bld) 66.9 % Normal [facility] Comment on above: Order Comment: Speci men Type: BLOOD SPECIMEN Ordering Facility: [facility] Address: [address] [place] [address] Performed By: #### 5 7021-8 #### [facility] CLIA [id number] [address] [place] [address] [place] Nucleated RBC (Bld) [#/Vol] 10*3/uL Normal <0.01 [facility] Comment on above: Order Comment: Speci men Type: BLOOD SPECIMEN Ordering Facility: [facility] Address: [address] [place] [address] Performed By: #### 5 7021-8 #### [facility] CLIA [id number] [address] [place] [address] [place] Nucleated RBC/100 WBC (Bld) [Ratio] 0.0 /100 WBC Normal [facility] Comment on above: Order Comment: Speci men Type: BLOOD SPECIMEN Ordering Facility: [facility] Address: [address] [place] [address] Performed By: #### 5 7021-8 #### [facility] CLIA [id number] [address] [place] [address] [place] Platelet mean volume (Bld) [Entitic vol] 10.2 fL Normal 9.0-12.7 [facility] Comment on above: Order Comment: Speci men Type: BLOOD SPECIMEN Ordering Facility: [facility] Address: [address] [place] [address] Performed By: #### 5 7021-8 #### [facility] CLIA [id number] [address] [place] [address] [place] Platelets (Bld) [#/Vol] 677 10*3/uL High 150-400 [facility] Comment on above: Order Comment: Speci men Type: BLOOD SPECIMEN Ordering Facility: [facility] Address: [address] [place] [address] Performed By: #### 5 7021-8 #### [facility] CLIA [id number] [address] [place] [address] [place] RBC (Bld) [#/Vol] 3.48 10*6/uL Low 3.90-5.20 [facility] Comment on above: Order Comment: Speci men Type: BLOOD SPECIMEN Ordering Facility: [facility] Address: [address] [place], [place] [address] Performed By: #### 5 7021-8 #### [facility] CLIA [id number] [address] [place] [address] [facility] OF [place] WBC (Bld) [#/Vol] 9.84 10*3/uL Normal 3.70-11.00 [facility] Comment on above: Order Comment: Speci men Type: BLOOD SPECIMEN Ordering Facility: [facility] Address: [address] [place], [place] [address] Performed By: #### 5 7021-8 #### [facility] CLIA [id number] [address] [place] [address] [facility] OF [place] CNOVSPon 02-22-2025 CNOVSP Visit (SP) Office (H EMAWS) -- TEMLA TINEO ([id number]) 1940 F Date Time Provider Department 02/22/25 [...] presented with painless jaundice, admitted initially at [facility], transferred for further work up at [facility]. Saw hepatobiliary surgery there, noted pancreatic mass. [...] sugar. Blood-Glucose Meter,Continuous (FREESTYLE TOLU 3 READER) [facility] Use to check blood sugar at least four (4) times daily. Blood-Glucose Sensor (FREESTYLE TOLU 3 PLUS SENSOR) benjamin Apply new sensor every fifteen (15) days to upper arm. metoprolol tartr (more content not included)... Normal [facility] Lenin 02-22-2025 NÉSTORN Telephone (HEMAWS) -- TELMA TINEO ([id number]) 1940 F Date Time Provider Department 02/22/25 [...] - Blood-Glucose Meter,Continuous (FREESTYLE TOLU 3 READER) [facility] Use to check blood sugar at least [...] once daily. - Blood Pressure Test Kit-Large (Pivot ARM BP MONITOR) 1 Each once daily. [...] 05/20/2023 Impaired cognition [R41.89] 05/20/2023 Diagnosed: 05/20/2023 intermediate current use of anticoagulant therapy *05/20/2023 Diagnosed: [...] by MARIA ISABEL SILVERIO on 02/23/25 Normal [facility] Comprehensive metabolic 2000 panelOrdered By: Angelia Paez on 02-22-2025 Albumin [Mass/Vol] 3.5 g/dL Low 3.9 - 4.9 g/dL [facility] ALP [Catalytic activity/Vol] 137 U/L High 34 - 123 U/L [facility] ALT [Catalytic activity/Vol] 26 U/L 7 - 38 U/L [facility] Anion gap [Moles/Vol] 9 mmol/L 8 - 15 mmol/L [facility] AST [Catalytic activity/Vol] 19 U/L 13 - 35 U/L [facility] Bilirubin [Mass/Vol] 0.8 mg/dL 0.2 - 1 .3 mg/dL [facility] Calcium [Mass/Vol] 9.1 mg/dL 8.5 - 10. 2 mg/dL [facility] Chloride [Moles/Vol] 101 mmol/L 98 - 10 7 mmol/L [facility] CO2 [Moles/Vol] 21 mmol/L Low 22 - 30 mmol/L [facility] Creatinine [Mass/Vol] 0.52 mg/dL Low 0.58 - 0.96 mg/dL [facility] GFR/1.73 sq M.predicted among non-blacks MDRD (S/P/Bld) [Vol rate/Area] 92 mL/min/{1.73_m2} - PINF [facility] Comment on above: Estimated Glomerular Filtration Rate [...] 407 mg/dL High 74 - 99 mg/dL [facility] Comment on above: The [place] Diabete s Association (ADA) provides guidance for [...] Standards of Medical Care in Diabetes 2016, [place] [employer] Association. Diabetes Care. 2016.39(Suppl 1). Interpretation and review of laboratory results Abnormal [facility] Potassium [Moles/Vol] 4.3 mmol/L 3.7 - 5.1 mmol/L [facility] Protein [Mass/Vol] 6.7 g/dL 6.3 - 8.0 g/dL [facility] Sodium [Moles/Vol] 131 mmol/L Low 136 - 144 mmol/L [facility] Urea nitrogen [Mass/Vol] 10 mg/dL 7 - 21 mg/dL [facility] Comprehensive metabolic 2000 panelon 02-22-2025 Albumin [Mass/Vol] 3.5 g/dL Low 3.9-4.9 [facility] Comment on above: Order Comment: Dayron stinson Type: BLOOD SPECIMEN Ordering Facility: [facility] Address: [address] [place] [address] Performed By: #### 2 4323-8 #### [facility] JENNIFERIA [id number] [address] [place] [address] [place] ALP [Catalytic activity/Vol] 137 U/L High 34-123 [facility] Comment on above: Order Comment: Dayron stinson Type: BLOOD SPECIMEN Ordering Facility: [facility] Address: [address] [place], [place] [address] [address] Performed By: #### 2 4323-8 #### [facility] CLIA [id number] [address] [place] [address] [place] ALT [Catalytic activity/Vol] 26 U/L Normal 7-38 [facility] Comment on above: Order Comment: Speci men Type: BLOOD SPECIMEN Ordering Facility: [facility] Address: [address] [facility] [place] [address] Performed By: #### 2 4323-8 #### [facility] CLIA [id number] [address] [place] [address] [place] Anion gap [Moles/Vol] 9 mmol/L Normal 8-15 [facility] Comment on above: Order Comment: Speci men Type: BLOOD SPECIMEN Ordering Facility: [facility] Address: [address] [facility] [place] [address] Performed By: #### 2 4323-8 #### [facility] CLIA [id number] [address] [place] [address] [place] AST [Catalytic activity/Vol] 19 U/L Normal 13-35 [facility] Comment on above: Order Comment: Speci men Type: BLOOD SPECIMEN Ordering Facility: [facility] Address: [address] [place] [address] Performed By: #### 2 4323-8 #### [facility] CLIA [id number] [address] [place] [address] [place] Bilirubin [Mass/Vol] 0.8 mg/dL Normal 0.2-1.3 [facility] Comment on above: Order Comment: Speci men Type: BLOOD SPECIMEN Ordering Facility: [facility] Address: [address] [place] [address] Performed By: #### 2 4323-8 #### [facility] CLIA [id number] [address] [place] [address] [place] Calcium [Mass/Vol] 9.1 mg/dL Normal 8.5-10.2 [facility] Comment on above: Order Comment: Speci men Type: BLOOD SPECIMEN Ordering Facility: [facility] Address: [address] [place] [address] Performed By: #### 2 4323-8 #### [facility] CLIA [id number] [address] [place] [address] [place] Chloride [Moles/Vol] 101 mmol/L Normal 98-107 [facility] Comment on above: Order Comment: Speci men Type: BLOOD SPECIMEN Ordering Facility: [facility] Address: [address] [place] [address] Performed By: #### 2 4323-8 #### [facility] CLIA [id number] [address] [place] [address] [place] CO2 [Moles/Vol] 21 mmol/L Low 22-30 [facility] Comment on above: Order Comment: Speci men Type: BLOOD SPECIMEN Ordering Facility: [facility] Address: [address] [place] [address] Performed By: #### 2 4323-8 #### [facility] CLIA [id number] [address] [place] [address] [place] Creatinine [Mass/Vol] 0.52 mg/dL Low 0.58-0.96 [facility] Comment on above: Order Comment: Speci men Type: BLOOD SPECIMEN Ordering Facility: [facility] Address: [address] [place] [address] Performed By: #### 2 4323-8 #### [facility] CLIA [id number] [address] [place] [address] [place] Creatinine and Glomerular filtration rate.predicted panel (S/P/Bld) 92 mL/min/1.73m??? Normal >=60 [facility] Comment on above: Order Comment: Speci men Type: BLOOD SPECIMEN Ordering Facility: [facility] Address: [address] [place] [address] Result Comment: Kya mated Glomerular Filtration Rate [...] GFR. Performed By: #### 2 4323-8 #### [facility] [id number] [address] [place] [address] [place] Glucose [Mass/Vol] 407 mg/dL High 74-99 [facility] Comment on above: Order Comment: Dayron stinson Type: BLOOD SPECIMEN Ordering Facility: [facility] Address: [address] [place] [address] Result Comment: The [place] Diabetes Association (ADA) provides guidance for cutoff [...] Standards of Medical Care in Diabetes 2016, [place] Diabetes Association. Diabetes Care. 2016.39(Suppl 1). Performed By: #### 2 4323-8 #### [facility] [id number] [address] [place] [address] [place] Potassium [Moles/Vol] 4.3 mmol/L Normal 3.7-5.1 [facility] Comment on above: Order Comment: Dayron stinson Type: BLOOD SPECIMEN Ordering Facility: [facility] Address: [address] [place], [place] [address] Performed By: #### 2 4323-8 #### [facility] CLIA [id number] [address] [place] [address] [place] Protein [Mass/Vol] 6.7 g/dL Normal 6.3-8.0 [facility] Comment on above: Order Comment: Speci men Type: BLOOD SPECIMEN Ordering Facility: [facility] Address: [address] [place] [address] Performed By: #### 2 4323-8 #### [facility] CLIA [id number] [address] [place] [address] [place] Sodium [Moles/Vol] 131 mmol/L Low 136-144 [facility] Comment on above: Order Comment: Speci men Type: BLOOD SPECIMEN Ordering Facility: [facility] Address: [address] [place] [address] Performed By: #### 2 4323-8 #### [facility] CLIA [id number] [address] [place] [address] [place] Urea nitrogen [Mass/Vol] 10 mg/dL Normal 7-21 [facility] Comment on above: Order Comment: Speci men Type: BLOOD SPECIMEN Ordering Facility: [facility] Address: [address] [place] [address] Performed By: #### 2 4323-8 #### [facility] CLIA [id number] [address] [place] [address] [place] XR CHEST 2V [...] decreased reticular opacities at the lung bases Wallpaper Consultant: [facility] Transcribe Date/Time: Feb 22 2025 11:18A Dictated by : ELOISA YANG MD This examination was interpreted and the report reviewed and electronically signed by: ELOISA YANG MD on Feb 22 2025 11:19AM EST [id number] Normal [facility] XR Chest PA and Lateralon IMPRESSION: Mild residual though decreased reticular opacities at the lung bases Wallpaper Consultant: [facility] Transcribe Date/Time: Feb 22 2025 11:18A Dictated [...] humeral greater tuberosities. DIVISION OF RADIOLOGY Provider, [facility] - 02/22/2025 * * *Final [...] decreased reticular opacities at the lung bases Wallpaper [facility] Transcribe Date/Time: Feb 22 2025 11:18A Dictated by : ELOISA YANG MD This examination was interpreted and the report reviewed and electronically signed by: ELOISA YANG MD on Feb 22 2025 11:19AM EST [facility] Radiology Study observation (narrative) [facility] XR Chest PA and LateralOrder ed By: Aisha Provider on 02-22-2025 [facility] Lenin 02-15-2025 IMMANUEL Telephone (KENISHAR) -- TELMA TINEO ([id number]) 1940 F Date Time Provider Department 02/15/25 RADHA OLUIS During your visit today, we recorded the [...] - Blood-Glucose Meter,Continuous (FREESTYLE TOLU 3 READER) [facility] [place] Use to check blood sugar at least [...] once daily. - Blood Pressure Test Kit-Large (Pivot ARM BP MONITOR) 1 Each once daily. 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 *05/20/2023 Diagnosed: [...] Encounter Status:Closed by RADHA LOUIS on 02/15/25 [facility] Telephone (LUKE) -- TELMA TINEO ([id number]) 1940 F Date Time Provider Department 02/15/25 MARIA ISABEL SILVERIO During your visit today, we recorded the following information about you: Maria Isabel Silverio RN 02/15/2025 10:58 AM Signed DISCHARGE CALL BACK Today's date: February 15, 2025 Notified of Pt discharge by: Erin Patient discharged on 02/14/25 from [facility] to Home Primary Cancer Diagnosis: pancreatic Admitting Diagnosis: acute pneumonia Discharge Summary/SBAR reviewed: Yes Handoff Discussed with Transitional 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: N/A Psychosocial Risk Factors: None If patient [...] Yes Patient reminded of follow-up appointment with [facility] provider, Dr. Yusuf on 02/22/25: Yes Discussed [...] RN - Fully Assessed Reason for Visit: 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 - Hospital Follow Up [3601] Prescriptions as [...] once daily. - Blood Pressure Test Kit-Large ([place] [employer] ARM BP MONITOR) 1 Each once daily. Problem List As Of Date 02/15/2025 Noted Resolved Mild intermittent asthma without complication [*09/14/2021 Primary hypertension [I10] 09/14/2021 Type 2 diabetes mellitu (more content not included)... Normal [facility] Basic metabolic 2000 panelon 02-14-2025 Anion gap [Moles/Vol] 10 mmol/L Normal 8-15 [facility] Comment on above: Order Comment: Speci men Type: BLOOD SPECIMENOrdering Facility: [facility] Address: [address] [place] [address] Performed By: #### 2 4321-2 ####[facility] LABORATORYCLIA [id number] [place] [address] [place] Calcium [Mass/Vol] 8.3 mg/dL Low 8.5-10.2 [facility] Comment on above: Order Comment: Speci men Type: BLOOD SPECIMENOrdering Facility: [facility] Address: [address] [place] [address] Performed By: #### 2 4321-2 ####[facility] LABORATORYCLIA [id number] [place] [id number] [place] Chloride [Moles/Vol] 102 mmol/L Normal 98-107 [facility] Comment on above: Order Comment: Speci men Type: BLOOD SPECIMENOrdering Facility: [facility] Address: [address] [place] [address] Performed By: #### 2 4321-2 ####[facility] LABORATORYCLIA [id number] [address] [place] CO2 [Moles/Vol] 21 mmol/L Low 22-30 [facility] Comment on above: Order Comment: Speci men Type: BLOOD SPECIMENOrdering Facility: [facility] Address: [address] [place] [address] Performed By: #### 2 4321-2 ####[facility] LABORATORYCLIA [id number] [address] OF [facility] Creatinine [Mass/Vol] 0.54 mg/dL Low 0.58-0.96 [facility] Comment on above: Order Comment: Speci men Type: BLOOD SPECIMENOrdering Facility: [facility] Address: [address] [place] [address] Performed By: #### 2 4321-2 ####[facility] LABORATORYCLIA [id number] [address] Creatinine and Glomerular filtration rate.predicted panel (S/P/Bld) 91 mL/min/1.73m??? Normal >=60 [facility] Comment on above: Order Comment: Speci men Type: BLOOD SPECIMENOrdering Facility: [facility] Address: [address] [place] [address] Result Comment: Kya mated Glomerular Filtration Rate [...] actual GFR. Performed By: #### 2 4321-2 ####[facility] LABORATORYCLIA [id number] [place] [address] [place] Glucose [Mass/Vol] 166 mg/dL High 74-99 [facility] Comment on above: Order Comment: Dayron stinson Type: BLOOD SPECIMENOrdering Facility: [facility] Address: [address] [place] [address] Result Comment: The [place] Diabetes Association (ADA) provides guidance for cutoff [...] Standards of Medical Care in Diabetes 2016, [place] [employer] Association. Diabetes Care. 2016.39(Suppl 1). Performed By: #### 2 4321-2 ####[facility] LABORATORYCLIA [id number] [place] [address] [place] Potassium [Moles/Vol] 3.6 mmol/L Low 3.7-5.1 [facility] Comment on above: Order Comment: Dayron stinson Type: BLOOD SPECIMENOrdering Facility: [facility] Address: [address] [place] [id number] Performed By: #### 2 4321-2 ####[facility] LABORATORYCLIA [id number] [place] [id number] [place] Sodium [Moles/Vol] 133 mmol/L Low 136-144 [facility] Comment on above: Order Comment: Dayron stinson Type: BLOOD SPECIMENOrdering Facility: [facility] Address: [address] [place] [address] Performed By: #### 2 4321-2 ####[facility] LABORATORYCLIA [id number] [address] [facility] Urea nitrogen [Mass/Vol] 8 mg/dL Normal 7- [facility] Comment on above: Order Comment: Speci men Type: BLOOD SPECIMENOrdering Facility: [facility] Address: [address] [place] [address] Performed By: #### 2 4321-2 ####[facility] LABORATORYCLIA [id number] [address] [place] CBC W Auto Differential pane l (Bld)on 02-14-2025 Basophils (Bld) [#/Vol] 10*3/uL Normal <0.11 [facility] Comment on above: Order Comment: Speci men Type: BLOOD SPECIMENOrdering Facility: [facility] Address: [address] [place] [address] Performed By: #### 5 7021-8 ####[facility] LABORATORYCLIA [id number] [address] [facility] Basophils/100 WBC (Bld) 0.7 % Normal [facility] Comment on above: Order Comment: Speci men Type: BLOOD SPECIMENOrdering Facility: [facility] Address: [address] [place] [address] Performed By: #### 5 7021-8 ####[facility] LABORATORYCLIA [id number] [address] Differential cell count method Nom (Bld) Auto Normal [facility] Comment on above: Order Comment: Speci men Type: BLOOD SPECIMENOrdering Facility: [facility] Address: [address] [place] [address] Performed By: #### 5 7021-8 ####[facility] LABORATORYCLIA [id number] [address] [place] Eosinophils (Bld) [#/Vol] 0.11 10*3/uL Normal <0.46 [facility] Comment on above: Order Comment: Speci men Type: BLOOD SPECIMENOrdering Facility: [facility] Address: [address] [place] [address] Performed By: #### 5 7021-8 ####[facility] LABORATORYCLIA [id number] [address] [place] Eosinophils/100 WBC (Bld) 3.7 % Normal [facility] Comment on above: Order Comment: Speci men Type: BLOOD SPECIMENOrdering Facility: [facility] Address: [address] [place] [address] Performed By: #### 5 7021-8 ####[facility] [facility] LABORATORYCLIA [id number] [address] [place] Erythrocyte distribution width (RBC) [Ratio] 14.0 % Normal 11.5-15.0 [facility] Comment on above: Order Comment: Speci men Type: BLOOD SPECIMENOrdering Facility: [facility] Address: [address] [place] [address] Performed By: #### 5 7021-8 ####[facility] LABORATORYCLIA [id number] [address] [place] Hematocrit (Bld) [Volume fraction] 24.7 % Low 36.0-46.0 [facility] Comment on above: Order Comment: Speci men Type: BLOOD SPECIMENOrdering Facility: [facility] Address: [address] [place] [address] Performed By: #### 5 7021-8 ####[facility] LABORATORYCLIA [id number] [address] [place] Hemoglobin (Bld) [Mass/Vol] 8.5 g/dL Low 11.5-15.5 [facility] Comment on above: Order Comment: Speci men Type: BLOOD SPECIMENOrdering Facility: [facility] Address: [address] [place] [address] Performed By: #### 5 7021-8 ####[facility] LABORATORYCLIA [id number] [address] [place] Immature granulocytes (Bld) [#/Vol] 0.08 10*3/uL Normal <0.10 [facility] Comment on above: Order Comment: Speci men Type: BLOOD SPECIMENOrdering Facility: [facility] Address: [address] [place] [address] Performed By: #### 5 7021-8 ####[facility] LABORATORYCLIA [id number] [address] STATES OF [facility] Immature granulocytes/100 WBC (Bld) 2.7 % Normal [facility] Comment on above: Order Comment: Speci men Type: BLOOD SPECIMENOrdering Facility: [facility] Address: [address] [place] [address] Performed By: #### 5 7021-8 ####[facility] LABORATORYCLIA [id number] [address] [place] Lymphocytes (Bld) [#/Vol] 0.67 10*3/uL Low 1.00-4.00 [facility] Comment on above: Order Comment: Speci men Type: BLOOD SPECIMENOrdering Facility: [facility] Address: [address] [place] [address] Performed By: #### 5 7021-8 ####[facility] LABORATORYCLIA [id number] [address] [facility] Lymphocytes/100 WBC (Bld) 22.6 % Normal [facility] Comment on above: Order Comment: Speci men Type: BLOOD SPECIMENOrdering Facility: [facility] Address: [address] [place] [address] Performed By: #### 5 7021-8 ####[facility] LABORATORYCLIA [id number] [address] [place] MCH (RBC) [Entitic mass] 31.0 pg Normal 26.0-34.0 [facility] Comment on above: Order Comment: Speci men Type: BLOOD SPECIMENOrdering Facility: [facility] Address: [address] [place] [address] Performed By: #### 5 7021-8 ####[facility] LABORATORYCLIA [id number] [address] [place] MCHC (RBC) [Mass/Vol] 34.4 g/dL Normal 30.5-36.0 [facility] Comment on above: Order Comment: Speci men Type: BLOOD SPECIMENOrdering Facility: [facility] Address: [address] [place] [address] Performed By: #### 5 7021-8 ####[facility] LABORATORYCLIA [id number] [address] [place] MCV (RBC) [Entitic vol] 90.1 fL Normal 80.0-100.0 [facility] Comment on above: Order Comment: Speci men Type: BLOOD SPECIMENOrdering Facility: [facility] Address: [address] [place] [address] Performed By: #### 5 7021-8 ####[facility] LABORATORYCLIA [id number] [address] [place] Monocytes (Bld) [#/Vol] 0.68 10*3/uL Normal <0.87 [facility] Comment on above: Order Comment: Speci men Type: BLOOD SPECIMENOrdering Facility: [facility] Address: [address] [place] [address] Performed By: #### 5 7021-8 ####[facility] LABORATORYCLIA [id number] [address] Monocytes/100 WBC (Bld) 23.0 % Normal [facility] Comment on above: Order Comment: Speci men Type: BLOOD SPECIMENOrdering Facility: [facility] Address: [address] [place] [address] Performed By: #### 5 7021-8 ####[facility] LABORATORYCLIA [id number] [place] [address] [place] Neutrophils (Bld) [#/Vol] 1.40 10*3/uL Low 1.45-7.50 [facility] Comment on above: Order Comment: Speci men Type: BLOOD SPECIMENOrdering Facility: [facility] Address: [address] [place] [address] Performed By: #### 5 7021-8 ####[facility]ORATORYCLIA [id number] [address] Neutrophils/100 WBC (Bld) 47.3 % Normal [facility] Comment on above: Order Comment: Speci men Type: BLOOD SPECIMENOrdering Facility: [facility] Address: [address] [place] [address] Performed By: #### 5 7021-8 ####[facility]ORATORYCLIA [id number] [address] [place] Nucleated RBC (Bld) [#/Vol] 10*3/uL Normal <0.01 [facility] Comment on above: Order Comment: Speci men Type: BLOOD SPECIMENOrdering Facility: [facility] Address: [address] [place] [address] Performed By: #### 5 7021-8 ####[facility] LABORATORYCLIA [id number] [address] Nucleated RBC/100 WBC (Bld) [Ratio] 0.0 /100 WBC Normal [facility] Comment on above: Order Comment: Speci men Type: BLOOD SPECIMENOrdering Facility: [facility] Address: [address] [place] [address] Performed By: #### 5 7021-8 ####[facility] LABORATORYCLIA [id number] [address] [place] Platelet mean volume (Bld) [Entitic vol] 11.4 fL Normal 9.0-12.7 [facility] Comment on above: Order Comment: Speci men Type: BLOOD SPECIMENOrdering Facility: [facility] Address: [address] [place] [address] Performed By: #### 5 7021-8 ####[facility] LABORATORYCLIA [id number] [address] [place] Platelets (Bld) [#/Vol] 192 10*3/uL Normal 150-400 [facility] Comment on above: Order Comment: Speci men Type: BLOOD SPECIMENOrdering Facility: [facility] Address: [address] [place] [address] Performed By: #### 5 7021-8 ####[facility] LABORATORYCLIA [id number] [address] [place] RBC (Bld) [#/Vol] 2.74 10*6/uL Low 3.90-5.20 [facility] Comment on above: Order Comment: Speci men Type: BLOOD SPECIMENOrdering Facility: [facility] Address: [address] [place] [address] Performed By: #### 5 7021-8 ####[facility] LABORATORYCLIA [id number] [address] [place] OF [facility] WBC (Bld) [#/Vol] 2.96 10*3/uL Low 3.70-11.00 [facility] Comment on above: Order Comment: Speci men Type: BLOOD SPECIMENOrdering Facility: [facility] Address: [address] [place] [address] Performed By: #### 5 7021-8 ####[facility] LABORATORYCLIA [id number] [address] [place] CNDSon 02-14-2025 CNDS Normal [facility] THERAPY NTon 02-14-2025 THERAPY NT Normal [facility] Basic metabolic 2000 panelon 02-13-2025 Anion gap [Moles/Vol] 12 mmol/L Normal 8-15 [facility] Comment on above: Order Comment: Speci men Type: BLOOD SPECIMENOrdering Facility: [facility] Address: [address] [place] [address] Performed By: #### 2 4321-2 ####[facility] LABORATORYCLIA [id number] [address] STATES OF [facility] Calcium [Mass/Vol] 8.2 mg/dL Low 8.5-10.2 [facility] Comment on above: Order Comment: Speci men Type: BLOOD SPECIMENOrdering Facility: [facility] Address: [address] [place] [address] Performed By: #### 2 4321-2 ####[facility] LABORATORYCLIA [id number] [address] Chloride [Moles/Vol] 101 mmol/L Normal 98-107 [facility] Comment on above: Order Comment: Speci men Type: BLOOD SPECIMENOrdering Facility: [facility] Address: [address] [place] [address] Performed By: #### 2 4321-2 ####[facility] LABORATORYCLIA [id number] [address] OF [facility] CO2 [Moles/Vol] 19 mmol/L Low 22-30 [facility] Comment on above: Order Comment: Speci men Type: BLOOD SPECIMENOrdering Facility: [facility] Address: [address] [place] [address] Performed By: #### 2 4321-2 ####[facility] LABORATORYCLIA [id number] [address] Creatinine [Mass/Vol] 0.61 mg/dL Normal 0.58-0.96 [facility] Comment on above: Order Comment: Speci men Type: BLOOD SPECIMENOrdering Facility: [facility] Address: [address] [place] [address] Performed By: #### 2 4321-2 ####[facility] LABORATORYCLIA [id number] [address] Creatinine and Glomerular filtration rate.predicted panel (S/P/Bld) 88 mL/min/1.73m??? Normal >=60 [facility] Comment on above: Order Comment: Speci men Type: BLOOD SPECIMENOrdering Facility: [facility] Address: [address] [place] [address] Result Comment: [place] mated Glomerular Filtration Rate [...] actual GFR. Performed By: #### 2 4321-2 ####[facility] LABORATORYCLIA [id number] [place] [address] [place] Glucose [Mass/Vol] 168 mg/dL High 74-99 [facility] Comment on above: Order Comment: Dayron shantell Type: BLOOD SPECIMENOrdering Facility: [facility] Address: [address] [place] [address] Result Comment: The [place] [employer] (ADA) provides guidance for cutoff [...] Standards of Medical Care in Diabetes 2016, [place] [employer]. Diabetes Care. 2016.39(Suppl 1). Performed By: #### 2 4321-2 ####[facility] LABORATORYCLIA [id number] [place] [address] [place] Potassium [Moles/Vol] 3.7 mmol/L Normal 3.7-5.1 [facility] Comment on above: Order Comment: Dayron stinson Type: BLOOD SPECIMENOrdering Facility: [facility] Address: [address] [place] [address] Performed By: #### 2 4321-2 ####[facility] LABORATORYCLIA [id number] [place] [address] [place] Sodium [Moles/Vol] 132 mmol/L Low 136-144 [facility] Comment on above: Order Comment: Elinori shantell Type: BLOOD SPECIMENOrdering Facility: [facility] Address: [address] [place] [address] Performed By: #### 2 4321-2 ####[facility] LABORATORYCLIA [id number] [place] [address] [place] Urea nitrogen [Mass/Vol] 9 mg/dL Normal 7-21 [facility] Comment on above: Order Comment: Speci men Type: BLOOD SPECIMENOrdering Facility: [facility] Address: [address] [place] [address] Performed By: #### 2 4321-2 ####[facility] LABORATORYCLIA [id number] [address] [facility] CBC panel Auto (Bld)on 02-13 Erythrocyte distribution width (RBC) [Ratio] 13.6 % Normal 11.5-15.0 [facility] Comment on above: Order Comment: Speci men Type: BLOOD SPECIMENOrdering Facility: [facility] Address: [address] [place] [address] Performed By: #### 5 8410-2 ####[facility] LABORATORYCLIA [id number] [address] STATES OF [facility] Hematocrit (Bld) [Volume fraction] 25.8 % Low 36.0-46.0 [facility] Comment on above: Order Comment: Speci men Type: BLOOD SPECIMENOrdering Facility: [facility] Address: [address] [place] [address] Performed By: #### 5 8410-2 ####[facility] LABORATORYCLIA [id number] [address] Hemoglobin (Bld) [Mass/Vol] 8.9 g/dL Low 11.5-15.5 [facility] Comment on above: Order Comment: Speci men Type: BLOOD SPECIMENOrdering Facility: [facility] Address: [address] [place] [address] Performed By: #### 5 8410-2 ####[facility] LABORATORYCLIA [id number] [address] MCH (RBC) [Entitic mass] 30.9 pg Normal 26.0-34.0 [facility] Comment on above: Order Comment: Speci men Type: BLOOD SPECIMENOrdering Facility: [facility] Address: [address] [place] [address] Performed By: #### 5 8410-2 ####[facility] LABORATORYCLIA [id number] [address] STATES OF [facility] MCHC (RBC) [Mass/Vol] 34.5 g/dL Normal 30.5-36.0 [facility] Comment on above: Order Comment: Speci men Type: BLOOD SPECIMENOrdering Facility: [facility] Address: [address] [place] [address] Performed By: #### 5 8410-2 ####[facility] LABORATORYCLIA [id number] [address] [place] MCV (RBC) [Entitic vol] 89.6 fL Normal 80.0-100.0 [facility] Comment on above: Order Comment: Speci men Type: BLOOD SPECIMENOrdering Facility: [facility] Address: [address] [place] [address] Performed By: #### 5 8410-2 ####[facility] LABORATORYCLIA [id number] [address] Nucleated RBC (Bld) [#/Vol] 10*3/uL Normal <0.01 [facility] Comment on above: Order Comment: Speci men Type: BLOOD SPECIMENOrdering Facility: [facility] Address: [address] [place] [address] Performed By: #### 5 8410-2 ####[facility] LABORATORYCLIA [id number] [address] [place] Platelet mean volume (Bld) [Entitic vol] 11.6 fL Normal 9.0-12.7 [facility] Comment on above: Order Comment: Speci men Type: BLOOD SPECIMENOrdering Facility: [facility] Address: [address] [place] [address] Performed By: #### 5 8410-2 ####[facility] LABORATORYCLIA [id number] [address] [place] Platelets (Bld) [#/Vol] 148 10*3/uL Low 150-400 [facility] Comment on above: Order Comment: Speci men Type: BLOOD SPECIMENOrdering Facility: [facility] Address: [address] [place] [address] Performed By: #### 5 8410-2 ####[facility] LABORATORYCLIA [id number] [address] STATES OF [facility] RBC (Bld) [#/Vol] 2.88 10*6/uL Low 3.90-5.20 [facility] Comment on above: Order Comment: Speci men Type: BLOOD SPECIMENOrdering Facility: [facility] Address: [address] [place] [address] Performed By: #### 5 8410-2 ####[facility] LABORATORYCLIA [id number] [address] [place] OF [facility] WBC (Bld) [#/Vol] 2.36 10*3/uL Low 3.70-11.00 [facility] Comment on above: Order Comment: Speci men Type: BLOOD SPECIMENOrdering Facility: [facility] Address: [address] [place] [address] Performed By: #### 5 8410-2 ####[facility] LABORATORYCLIA [id number] [address] [place] CONSULT PROGon 02-13-2025 CONSULT PROG Normal [facility] THERAPY NTon 02-13-2025 THERAPY NT Normal [facility] Basic metabolic 2000 panelon 02-12-2025 Anion gap [Moles/Vol] 9 mmol/L Normal 8-15 [facility] Comment on above: Order Comment: Speci men Type: BLOOD SPECIMENOrdering Facility: [facility] Address: [address] [place] [address] Performed By: #### 2 4321-2 ####[facility] LABORATORYCLIA [id number] [address] [facility] Calcium [Mass/Vol] 7.3 mg/dL Low 8.5-10.2 [facility] Comment on above: Order Comment: Speci men Type: BLOOD SPECIMENOrdering Facility: [facility] Address: [address] [place] [address] Performed By: #### 2 4321-2 ####[facility] LABORATORYCLIA [id number] [place] [address] [place] Chloride [Moles/Vol] 100 mmol/L Normal 98-107 [facility] Comment on above: Order Comment: Speci men Type: BLOOD SPECIMENOrdering Facility: [facility] Address: [address] [place] [address] Performed By: #### 2 4321-2 ####[facility] LABORATORYCLIA [id number] [place] [id number] [place] CO2 [Moles/Vol] 18 mmol/L Low 22-30 [facility] Comment on above: Order Comment: Speci men Type: BLOOD SPECIMENOrdering Facility: [facility] Address: [address] [place] [address] Performed By: #### 2 4321-2 ####[facility] LABORATORYCLIA [id number] [address] STATES OF [facility] Creatinine [Mass/Vol] 0.58 mg/dL Normal 0.58-0.96 [facility] Comment on above: Order Comment: Speci men Type: BLOOD SPECIMENOrdering Facility: [facility] Address: [address] [place] [address] Performed By: #### 2 4321-2 ####[facility] LABORATORYCLIA [id number] [address] Creatinine and Glomerular filtration rate.predicted panel (S/P/Bld) 89 mL/min/1.73m??? Normal >=60 [facility] Comment on above: Order Comment: Speci men Type: BLOOD SPECIMENOrdering Facility: [facility] Address: [address] [place] [address] Result Comment: [place]ya mated Glomerular Filtration Rate [...] actual GFR. Performed By: #### 2 4321-2 ####[facility] LABORATORYCLIA [id number] [place] [address] [place] Glucose [Mass/Vol] 144 mg/dL High 74-99 [facility] Comment on above: Order Comment: Dayron stinson Type: BLOOD SPECIMENOrdering Facility: [facility] Address: [address] [place] [address] Result Comment: The [place] [employer] (ADA) provides guidance for cutoff [...] Standards of Medical Care in Diabetes 2016, [place] [employer]. Diabetes Care. 2016.39(Suppl 1). Performed By: #### 2 4321-2 ####[facility] LABORATORYCLIA [id number] [place] [address] [place] Potassium [Moles/Vol] 3.6 mmol/L Low 3.7-5.1 [facility] Comment on above: Order Comment: Dayron stinosn Type: BLOOD SPECIMENOrdering Facility: [facility] Address: [address] [place] [address] Performed By: #### 2 4321-2 ####[facility] LABORATORYCLIA [id number] [place] [id number] [place] Sodium [Moles/Vol] 127 mmol/L Low 136-144 [facility] Comment on above: Order Comment: Dayron stinson Type: BLOOD SPECIMENOrdering Facility: [facility] Address: [address] [place] [address] Performed By: #### 2 4321-2 ####[facility] LABORATORYCLIA [id number] [place] [id number] [place] Urea nitrogen [Mass/Vol] 7 mg/dL Normal 7-21 [facility] Comment on above: Order Comment: Speci men Type: BLOOD SPECIMENOrdering Facility: [facility] Address: [address] [place] [address] Performed By: #### 2 4321-2 ####[facility] LABORATORYCLIA [id number] [place] [id number] [place] CASE MANAGEMon 02-12-2025 CASE MANAGEM Normal [facility] CBC W Auto Differential pane l (Bld)on 02-12-2025 Basophils (Bld) [#/Vol] 10*3/uL Normal <0.11 [facility] Comment on above: Order Comment: Speci men Type: BLOOD SPECIMENOrdering Facility: [facility] Address: [address] [place] [address] Performed By: #### 5 7021-8 ####[facility] LABORATORYCLIA [id number] [address] [place] Basophils/100 WBC (Bld) 0.0 % Normal [facility] Comment on above: Order Comment: Speci men Type: BLOOD SPECIMENOrdering Facility: [facility] Address: [address] [place] [address] Performed By: #### 5 7021-8 ####[facility] LABORATORYCLIA [id number] [address] [place] Differential cell count method Nom (Bld) Auto Normal [facility] Comment on above: Order Comment: Speci men Type: BLOOD SPECIMENOrdering Facility: [facility] Address: [address] [place] [address] Performed By: #### 5 7021-8 ####[facility] LABORATORYCLIA [id number] [place] [address] [place] Eosinophils (Bld) [#/Vol] 0.04 10*3/uL Normal <0.46 [facility] Comment on above: Order Comment: Speci men Type: BLOOD SPECIMENOrdering Facility: [facility] Address: [address] [place] [address] Performed By: #### 5 7021-8 ####[facility] LABORATORYCLIA [id number] [address] [place] Eosinophils/100 WBC (Bld) 1.8 % Normal [facility] Comment on above: Order Comment: Speci men Type: BLOOD SPECIMENOrdering Facility: [facility] Address: [address] [place] [address] Performed By: #### 5 7021-8 ####[facility] LABORATORYCLIA [id number] [address] [place] Erythrocyte distribution width (RBC) [Ratio] 13.5 % Normal 11.5-15.0 [facility] Comment on above: Order Comment: Speci men Type: BLOOD SPECIMENOrdering Facility: [facility] Address: [address] [place] [address] Performed By: #### 5 7021-8 ####[facility] LABORATORYCLIA [id number] [address] [place] Hematocrit (Bld) [Volume fraction] 25.1 % Low 36.0-46.0 [facility] Comment on above: Order Comment: Speci men Type: BLOOD SPECIMENOrdering Facility: [facility] Address: [address] [place] [address] Performed By: #### 5 7021-8 ####[facility] LABORATORYCLIA [id number] [address] [place] Hemoglobin (Bld) [Mass/Vol] 8.3 g/dL Low 11.5-15.5 [facility] Comment on above: Order Comment: Speci men Type: BLOOD SPECIMENOrdering Facility: [facility] Address: [address] [place] [address] Performed By: #### 5 7021-8 ####[facility] LABORATORYCLIA [id number] [address] [place] Immature granulocytes (Bld) [#/Vol] 0.05 10*3/uL Normal <0.10 [facility] Comment on above: Order Comment: Speci men Type: BLOOD SPECIMENOrdering Facility: [facility] Address: [address] [place] [address] Performed By: #### 5 7021-8 ####[facility] LABORATORYCLIA [id number] [address] [place] Immature granulocytes/100 WBC (Bld) 2.2 % Normal [facility] Comment on above: Order Comment: Speci men Type: BLOOD SPECIMENOrdering Facility: [facility] Address: [address] [place] [address] Performed By: #### 5 7021-8 ####[facility] LABORATORYCLIA [id number] [address] [place] Lymphocytes (Bld) [#/Vol] 0.35 10*3/uL Low 1.00-4.00 [facility] Comment on above: Order Comment: Speci men Type: BLOOD SPECIMENOrdering Facility: [facility] Address: [address] [place] [address] Performed By: #### 5 7021-8 ####[facility] LABORATORYCLIA [id number] [address] Lymphocytes/100 WBC (Bld) 15.4 % Normal [facility] Comment on above: Order Comment: Speci men Type: BLOOD SPECIMENOrdering Facility: [facility] Address: [address] [place] [address] Performed By: #### 5 7021-8 ####[facility] LABORATORYCLIA [id number] [address] [place] MCH (RBC) [Entitic mass] 30.4 pg Normal 26.0-34.0 [facility] Comment on above: Order Comment: Speci men Type: BLOOD SPECIMENOrdering Facility: [facility] Address: [address] [place] [address] Performed By: #### 5 7021-8 ####[facility] LABORATORYCLIA [id number] [address] [place] MCHC (RBC) [Mass/Vol] 33.1 g/dL Normal 30.5-36.0 [facility] Comment on above: Order Comment: Speci men Type: BLOOD SPECIMENOrdering Facility: [facility] Address: [address] [place] [address] Performed By: #### 5 7021-8 ####[facility] LABORATORYCLIA [id number] [place] [address] [place] MCV (RBC) [Entitic vol] 91.9 fL Normal 80.0-100.0 [facility] Comment on above: Order Comment: Speci men Type: BLOOD SPECIMENOrdering Facility: [facility] Address: [address] [place] [address] Performed By: #### 5 7021-8 ####[facility] LABORATORYCLIA [id number] [place] [address] [place] Monocytes (Bld) [#/Vol] 0.22 10*3/uL Normal <0.87 [facility] Comment on above: Order Comment: Speci men Type: BLOOD SPECIMENOrdering Facility: [facility] Address: [address] [place] [address] Performed By: #### 5 7021-8 ####[facility] LABORATORYCLIA [id number] [address] [place] Monocytes/100 WBC (Bld) 9.7 % Normal [facility] Comment on above: Order Comment: Speci men Type: BLOOD SPECIMENOrdering Facility: [facility] Address: [address] [place] [address] Performed By: #### 5 7021-8 ####[facility] LABORATORYCLIA [id number] [place] [address] [place] Neutrophils (Bld) [#/Vol] 1.61 10*3/uL Normal 1.45-7.50 [facility] Comment on above: Order Comment: Speci men Type: BLOOD SPECIMENOrdering Facility: [facility] Address: [address] [place] [address] Performed By: #### 5 7021-8 ####[facility]ORATORYCLIA [id number] [address] [place] Neutrophils/100 WBC (Bld) 70.9 % Normal [facility] Comment on above: Order Comment: Speci men Type: BLOOD SPECIMENOrdering Facility: [facility] Address: [address] [place] [address] Performed By: #### 5 7021-8 ####[facility]ORATORYCLIA [id number] [address] [place] Nucleated RBC (Bld) [#/Vol] 10*3/uL Normal <0.01 [facility] Comment on above: Order Comment: Speci men Type: BLOOD SPECIMENOrdering Facility: [facility] Address: [address] [place] [address] Performed By: #### 5 7021-8 ####[facility] LABORATORYCLIA [id number] [address] Nucleated RBC/100 WBC (Bld) [Ratio] 0.0 /100 WBC Normal [facility] Comment on above: Order Comment: Speci men Type: BLOOD SPECIMENOrdering Facility: [facility] Address: [address] [place] [address] Performed By: #### 5 7021-8 ####[facility] LABORATORYCLIA [id number] [address] [place] Platelet mean volume (Bld) [Entitic vol] 12.0 fL Normal 9.0-12.7 [facility] Comment on above: Order Comment: Speci men Type: BLOOD SPECIMENOrdering Facility: [facility] Address: [address] [place] [address] Performed By: #### 5 7021-8 ####[facility] LABORATORYCLIA [id number] [address] [place] Platelets (Bld) [#/Vol] 117 10*3/uL Low 150-400 [facility] Comment on above: Order Comment: Speci men Type: BLOOD SPECIMENOrdering Facility: [facility] Address: [address] [place] [address] Result Comment: No c lot detected. Performed By: #### 5 7021-8 ####[facility] LABORATORYCLIA [id number] [address] STATES OF [facility] RBC (Bld) [#/Vol] 2.73 10*6/uL Low 3.90-5.20 [facility] Comment on above: Order Comment: Speci men Type: BLOOD SPECIMENOrdering Facility: [facility] Address: [address] [place] [address] Performed By: #### 5 7021-8 ####[facility] LABORATORYCLIA [id number] [address] WBC (Bld) [#/Vol] 2.27 10*3/uL Low 3.70-11.00 [facility] Comment on above: Order Comment: Speci men Type: BLOOD SPECIMENOrdering Facility: [facility] Address: [address] [place] [address] Performed By: #### 5 7021-8 ####[facility] LABORATORYCLIA [id number] [address] OF [facility] CONSULTon 02-12-2025 CONSULT Normal [facility] CONSULT PROGon 02-12-2025 CONSULT PROG Normal [facility] CONSULT PROG Normal [facility] NUTRITIONon 02-12-2025 NUTRITION Normal [facility] ALLIED HEALTHon 02-11-2025 ALLIED HEALTH Normal [facility] ALLIED HEALTH Normal [facility] Bacteria Spec Resp Culton Bacteria identified Respiratory culture Nom (Unsp spec) CULTURE, RESPIRATORY: Moderate Normal respiratory murray present GRAM STAIN: Moderate Mixed oral murray No Polymorphonuclear Leukocytes Few Epithelial cells Abnormal [facility] Comment on above: Performed By: #### 3 2355-0 ####[facility] LABORATORYCLIA [id number] [address] [place] Basic metabolic 2000 panelon 02-11-2025 Anion gap [Moles/Vol] 11 mmol/L Normal 8-15 [facility] Comment on above: Order Comment: Speci men Type: BLOOD SPECIMENOrdering Facility: [facility] Address: [address] [id number] Performed By: #### 2 4325-3, 3040-3, 91817-0 ####[facility] LABORATORYCLIA [id number] [place] [address] [place] Calcium [Mass/Vol] 8.2 mg/dL Low 8.5-10.2 [facility] Comment on above: Order Comment: Speci men Type: BLOOD SPECIMENOrdering Facility: [facility] Address: [address] [place] [address] Performed By: #### 2 4325-3, 3040-3, 44832-2 ####[facility] LABORATORYCLIA [id number] [place] [address] [place] Chloride [Moles/Vol] 93 mmol/L Low 98-107 [facility] Comment on above: Order Comment: Speci men Type: BLOOD SPECIMENOrdering Facility: [facility] Address: [address] [place] [address] Performed By: #### 2 4325-3, 3040-3, 39899-9 ####[facility] LABORATORYCLIA [id number] [place] [address] [place] CO2 [Moles/Vol] 21 mmol/L Low 22-30 [facility] Comment on above: Order Comment: Speci men Type: BLOOD SPECIMENOrdering Facility: [facility] Address: [address] [place] [address] Performed By: #### 2 4325-3, 3040-3, 03112-0 ####[facility] LABORATORYCLIA [id number] [place] [address] [place] Creatinine [Mass/Vol] 0.63 mg/dL Normal 0.58-0.96 [facility] Comment on above: Order Comment: Speci men Type: BLOOD SPECIMENOrdering Facility: [facility] Address: [address] [place] [address] Performed By: #### 2 4325-3, 3040-3, 70493-8 ####[facility]ITALIA [id number] [address] [place] Creatinine and Glomerular filtration rate.predicted panel (S/P/Bld) 88 mL/min/1.73m??? Normal >=60 [facility] Comment on above: Order Comment: Dayron shantell Type: BLOOD SPECIMENOrdering Facility: [facility] Address: [address] [place] [address] Result Comment: Kya mated Glomerular Filtration Rate [...] GFR. Performed By: #### 2 4325-3, 3040-3, 36203-9 ####[facility]PITALIA [id number] [address] [place] Glucose [Mass/Vol] 251 mg/dL High 74-99 [facility] Comment on above: Order Comment: Dayron stinson Type: BLOOD SPECIMENOrdering Facility: [facility] Address: [address] [place] [address] Result Comment: The [place] [employer] (ADA) provides guidance for cutoff [...] Standards of Medical Care in Diabetes 2016, [place] [employer]. Diabetes Care. 2016.39(Suppl 1). Performed By: #### 2 4325-3, 3040-3, 14620-2 ####[facility]OSPITALIA [id number] [place], [place] [id number] [place] [address] [place] Potassium [Moles/Vol] 4.3 mmol/L Normal 3.7-5.1 [facility] Comment on above: Order Comment: Speci men Type: BLOOD SPECIMENOrdering Facility: [facility] Address: [address] [place] [address] Performed By: #### 2 4325-3, 3040-3, 61258-1 ####[facility] LABORATORYCLIA [id number] [place] [address] [place] Sodium [Moles/Vol] 125 mmol/L Low 136-144 [facility] Comment on above: Order Comment: Speci men Type: BLOOD SPECIMENOrdering Facility: [facility] Address: [address] [place] [address] Performed By: #### 2 4325-3, 3040-3, 96677-7 ####[facility] LABORATORYCLIA [id number] [address] [place] Urea nitrogen [Mass/Vol] 8 mg/dL Normal 7-21 [facility] Comment on above: Order Comment: Speci men Type: BLOOD SPECIMENOrdering Facility: [facility] Address: [address] [place] [address] Performed By: #### 2 4325-3, 3040-3, 86170-3 ####[facility] LABORATORYCLIA [id number] [address] [place] CASE MGT INIT ASSESon 2024 CASE MGT INIT ASSES Normal [facility] CBC panel Auto (Bld)on 02-11 Erythrocyte distribution width (RBC) [Ratio] 13.5 % Normal 11.5-15.0 [facility] Comment on above: Order Comment: Speci men Type: BLOOD SPECIMENOrdering Facility: [facility] Address: [address] [place] [address] Performed By: #### 5 8410-2 ####[facility] LABORATORYCLIA [id number] [address] [place] Hematocrit (Bld) [Volume fraction] 25.5 % Low 36.0-46.0 [facility] Comment on above: Order Comment: Speci men Type: BLOOD SPECIMENOrdering Facility: [facility] Address: [address] [place] [address] Performed By: #### 5 8410-2 ####[facility] LABORATORYCLIA [id number] [address] STATES OF [facility] Hemoglobin (Bld) [Mass/Vol] 8.8 g/dL Low 11.5-15.5 [facility] Comment on above: Order Comment: Speci men Type: BLOOD SPECIMENOrdering Facility: [facility] Address: [address] [place] [address] Performed By: #### 5 8410-2 ####[facility] LABORATORYCLIA [id number] [address] STATES OF [facility] MCH (RBC) [Entitic mass] 31.2 pg Normal 26.0-34.0 [facility] Comment on above: Order Comment: Speci men Type: BLOOD SPECIMENOrdering Facility: [facility] Address: [address] [place] [address] Performed By: #### 5 8410-2 ####[facility] LABORATORYCLIA [id number] [address] STATES OF [facility] MCHC (RBC) [Mass/Vol] 34.5 g/dL Normal 30.5-36.0 [facility] Comment on above: Order Comment: Speci men Type: BLOOD SPECIMENOrdering Facility: [facility] Address: [address] [place] [address] Performed By: #### 5 8410-2 ####[facility] LABORATORYCLIA [id number] [address] [facility] MCV (RBC) [Entitic vol] 90.4 fL Normal 80.0-100.0 [facility] Comment on above: Order Comment: Speci men Type: BLOOD SPECIMENOrdering Facility: [facility] Address: [address] [place] [address] Performed By: #### 5 8410-2 ####[facility] LABORATORYCLIA [id number] [address] [place] Nucleated RBC (Bld) [#/Vol] 10*3/uL Normal <0.01 [facility] Comment on above: Order Comment: Speci men Type: BLOOD SPECIMENOrdering Facility: [facility] Address: [address] [place] [address] Performed By: #### 5 8410-2 ####[facility] LABORATORYCLIA [id number] [address] [place] Platelet mean volume (Bld) [Entitic vol] 12.0 fL Normal 9.0-12.7 [facility] Comment on above: Order Comment: Speci men Type: BLOOD SPECIMENOrdering Facility: [facility] Address: [address] [place] [address] Performed By: #### 5 8410-2 ####[facility] LABORATORYCLIA [id number] [address] Platelets (Bld) [#/Vol] 112 10*3/uL Low 150-400 [facility] Comment on above: Order Comment: Speci men Type: BLOOD SPECIMENOrdering Facility: [facility] Address: [address] [place] [address] Result Comment: No c lot detected. Performed By: #### 5 8410-2 ####[facility] LABORATORYCLIA [id number] [address] [place] RBC (Bld) [#/Vol] 2.82 10*6/uL Low 3.90-5.20 [facility] Comment on above: Order Comment: Speci men Type: BLOOD SPECIMENOrdering Facility: [facility] Address: [address] [place] [address] Performed By: #### 5 8410-2 ####[facility] LABORATORYCLIA [id number] [address] [place] WBC (Bld) [#/Vol] 1.92 10*3/uL Low 3.70-11.00 [facility] Comment on above: Order Comment: Speci men Type: BLOOD SPECIMENOrdering Facility: [facility] Address: [address] [place] [address] Performed By: #### 5 8410-2 ####[facility] LABORATORYCLIA [id number] [address] [place] CONSULTon 02-11-2025 CONSULT Normal [facility] CONSULT Normal [facility] CONSULT PROGon 02-11-2025 CONSULT PROG Normal [facility] CONSULT PROG Normal [facility] CT ABD/PEL W IVCONon 025 CT ABD/PEL W IVCON Normal [facility] ED NOTEon 02-11-2025 ED NOTE HNO ID: [id number] Author: AYAZ HOLLOWAY RN Service: ? Author Type: Registered Nurse Type: ED Notes Filed: 02/11/2025 00:53 Note Text: RN attempted to call floor RN twice. Normal [facility] HISTORY PHYSICALon HISTORY PHYSICAL Normal [facility] Hepatic function 2000 panelo n 02-11-2025 Albumin [Mass/Vol] 3.0 g/dL Low 3.9-4.9 [facility] Comment on above: Order Comment: Speci men Type: BLOOD SPECIMENOrdering Facility: [facility] Address: [address] [place] [address] Performed By: #### 2 4325-3, 3040-3, 69111-6 ####[facility] LABORATORYCLIA [id number] [address] [place] ALP [Catalytic activity/Vol] 80 U/L Normal 34-123 [facility] Comment on above: Order Comment: Speci men Type: BLOOD SPECIMENOrdering Facility: [facility] Address: [address] [place] [address] Performed By: #### 2 4325-3, 3040-3, 10656-7 ####[facility] LABORATORYCLIA [id number] [address] [place] ALT With P-5'-P [Catalytic activity/Vol] 19 U/L Normal 7-38 [facility] Comment on above: Order Comment: Speci men Type: BLOOD SPECIMENOrdering Facility: [facility] Address: [address] [place] [address] Performed By: #### 2 4325-3, 3040-3, 49642-8 ####[facility] LABORATORYCLIA [id number] [place] [address] [place] AST With P-5'-P [Catalytic activity/Vol] 19 U/L Normal 13-35 [facility] Comment on above: Order Comment: Speci men Type: BLOOD SPECIMENOrdering Facility: [facility] Address: [address] [place] [address] Performed By: #### 2 4325-3, 3040-3, 87205-6 ####[facility] LABORATORYCLIA [id number] [place] [address] [place] Bilirubin [Mass/Vol] 1.2 mg/dL Normal 0.2-1.3 [facility] Comment on above: Order Comment: Speci men Type: BLOOD SPECIMENOrdering Facility: [facility] Address: [address] [place] [address] Performed By: #### 2 4325-3, 0-3, 71959-6 ####[facility] LABORATORYCLIA [id number] [address] STATES OF [facility] Bilirubin.conjugated [Mass/Vol] 0.8 mg/dL High <0.3 [facility] Comment on above: Order Comment: Speci men Type: BLOOD SPECIMENOrdering Facility: [facility] Address: [address] [place] [address] Performed By: #### 2 4325-3, 3040-3, 92244-4 ####[facility] LABORATORYCLIA [id number] [place] [address] [place] Protein [Mass/Vol] 5.9 g/dL Low 6.3-8.0 [facility] Comment on above: Order Comment: Speci men Type: BLOOD SPECIMENOrdering Facility: [facility] Address: [address] [place] [address] Performed By: #### 2 4325-3, 3040-3, 01064-1 ####[facility] LABORATORYCLIA [id number] [address] [place] Lipase SerPl-cCncon 02-12-20 25 Lipase [Catalytic activity/Vol] 45 U/L Normal 16-61 [facility] Comment on above: Order Comment: Speci men Type: BLOOD SPECIMENOrdering Facility: [facility] Address: [address] [place] [address] Performed By: #### 2 4325-3, 3040-3, 57803-4 ####[facility] LABORATORYCLIA [id number] [address] [place] STAPHYLOCOCCUS AUREUS AND MR SA SCREEN, PCR, NASALon 02-11-2025 S. aureus and MRSA panel GUNNER+probe (Nose) Not detected Normal Not Detected [facility] Comment on above: Order Comment: Speci men Type: SWABOrdering Facility: [facility] Address: [address] [place] [address] Performed By: #### S APCR ####[facility] EASTCLIA [id number] [address] Bacteria Bld Culton 02-11-20 25 Bacteria identified Cx Nom (Bld) CULTURE, BLOOD: No growth 5 days Normal [facility] Comment on above: Performed By: #### 6 00-7 ####[facility] LABORATORYCLIA [id number] [address] [place] CBC W Auto Differential pane l (Bld)on 02-10-2025 Basophils (Bld) [#/Vol] 0.00 10*3/uL Normal <0.11 [facility] Comment on above: Order Comment: Speci men Type: BLOOD SPECIMENOrdering Facility: [facility] Address: [address] [place] [address] Performed By: #### 5 7021-8, [id number] ####[facility] LABORATORYCLIA [id number] [address] Basophils/100 WBC (Bld) 0.0 % Normal [facility] Comment on above: Order Comment: Speci men Type: BLOOD SPECIMENOrdering Facility: [facility] Address: [address] [place] [address] Performed By: #### 5 7021-8, [id number] ####[facility] LABORATORYCLIA [id number] [address] Differential cell count method Nom (Bld) Manual Normal [facility] Comment on above: Order Comment: Speci men Type: BLOOD SPECIMENOrdering Facility: [facility] Address: [address] [place] [address] Performed By: #### 5 7021-8, [id number] ####[facility] LABORATORYCLIA [id number] [address] [place] Eosinophils (Bld) [#/Vol] 0.07 10*3/uL Normal <0.46 [facility] Comment on above: Order Comment: Speci men Type: BLOOD SPECIMENOrdering Facility: [facility] Address: [address] [place] [address] Performed By: #### 5 7021-8, [id number] ####[facility] LABORATORYCLIA [id number] [address] [facility] Eosinophils/100 WBC (Bld) 3.0 % Normal [facility] Comment on above: Order Comment: Speci men Type: BLOOD SPECIMENOrdering Facility: [facility] Address: [address] [place] [address] Performed By: #### 5 7021-8, [id number] ####[facility] LABORATORYCLIA [id number] [address] [place] Erythrocyte distribution width (RBC) [Ratio] 13.5 % Normal 11.5-15.0 [facility] Comment on above: Order Comment: Speci men Type: BLOOD SPECIMENOrdering Facility: [facility] Address: [address] [place] [address] Performed By: #### 5 7021-8, [id number] ####[facility]ORATORYCLIA [id number] [place] [address] [place] Hematocrit (Bld) [Volume fraction] 30.0 % Low 36.0-46.0 [facility] Comment on above: Order Comment: Speci men Type: BLOOD SPECIMENOrdering Facility: [facility] Address: [address] [place] [address] Performed By: #### 5 7021-8, [id number] ####[facility]ORATORYCLIA [id number] [place] [address] [place] Hemoglobin (Bld) [Mass/Vol] 9.9 g/dL Low 11.5-15.5 [facility] Comment on above: Order Comment: Speci men Type: BLOOD SPECIMENOrdering Facility: [facility] Address: [address] [place] [address] Performed By: #### 5 7021-8, [id number] ####[facility] LABORATORYCLIA [id number] [address] [place] HYPOGRANULATED PMNS Present Normal [facility] Comment on above: Order Comment: Speci men Type: BLOOD SPECIMENOrdering Facility: [facility] Address: [address] [place] [address] Performed By: #### 5 7021-8, [id number] ####[facility] LABORATORYCLIA [id number] [place] [address] [place] Lymphocytes (Bld) [#/Vol] 0.41 10*3/uL Low 1.00-4.00 [facility] Comment on above: Order Comment: Speci men Type: BLOOD SPECIMENOrdering Facility: [facility] Address: [address] [place] [address] Performed By: #### 5 7021-8, [id number] ####[facility]ORATORYCLIA [id number] [address] [place] Lymphocytes/100 WBC (Bld) 16.0 % Normal [facility] Comment on above: Order Comment: Speci men Type: BLOOD SPECIMENOrdering Facility: [facility] Address: [address] [place] [address] Performed By: #### 5 7021-8, [id number] ####[facility] LABORATORYCLIA [id number] [address] MCH (RBC) [Entitic mass] 30.6 pg Normal 26.0-34.0 [facility] Comment on above: Order Comment: Speci men Type: BLOOD SPECIMENOrdering Facility: [facility] Address: [address] [place] [address] Performed By: #### 5 7021-8, [id number] ####[facility] LABORATORYCLIA [id number] [address] MCHC (RBC) [Mass/Vol] 33.0 g/dL Normal 30.5-36.0 [facility] Comment on above: Order Comment: Speci men Type: BLOOD SPECIMENOrdering Facility: [facility] Address: [address] [place] [address] Performed By: #### 5 7021-8, [id number] ####[facility] LABORATORYCLIA [id number] [address] MCV (RBC) [Entitic vol] 92.6 fL Normal 80.0-100.0 [facility] Comment on above: Order Comment: Speci men Type: BLOOD SPECIMENOrdering Facility: [facility] Address: [address] [place] [address] Performed By: #### 5 7021-8, [id number] ####[facility] LABORATORYCLIA [id number] 09 [address] Metamyelocytes/100 WBC (Bld) 2.0 % Normal [facility] Comment on above: Order Comment: Speci men Type: BLOOD SPECIMENOrdering Facility: [facility] Address: [address] [place] [address] Performed By: #### 5 7021-8, [id number] ####[facility] LABORATORYCLIA [id number] [place] [address] [place] Monocytes (Bld) [#/Vol] 0.09 10*3/uL Normal <0.87 [facility] Comment on above: Order Comment: Speci men Type: BLOOD SPECIMENOrdering Facility: [facility] Address: [address] [place] [address] Performed By: #### 5 7021-8, [id number] ####[facility] LABORATORYCLIA [id number] [place] [address] [place] Monocytes/100 WBC (Bld) 4.0 % Normal [facility] Comment on above: Order Comment: Speci men Type: BLOOD SPECIMENOrdering Facility: [facility] Address: [address] [place] [address] Performed By: #### 5 7021-8, [id number] ####[facility] LABORATORYCLIA [id number] [place] [address] [place] Neutrophils (Bld) [#/Vol] 1.57 10*3/uL Normal 1.45-7.50 [facility] Comment on above: Order Comment: Speci men Type: BLOOD SPECIMENOrdering Facility: [facility] Address: [address] [place] [address] Performed By: #### 5 7021-8, [id number] ####[facility] LABORATORYCLIA [id number] [address] [place] Neutrophils/100 WBC (Bld) 72.0 % Normal [facility] Comment on above: Order Comment: Speci men Type: BLOOD SPECIMENOrdering Facility: [facility] Address: [address] [place] [address] Performed By: #### 5 7021-8, [id number] ####[facility] LABORATORYCLIA [id number] [place] [address] [place] Nucleated RBC (Bld) [#/Vol] 10*3/uL Normal <0.01 [facility] Comment on above: Order Comment: Speci men Type: BLOOD SPECIMENOrdering Facility: [facility] Address: [address] [place] [address] Performed By: #### 5 7021-8, [id number] ####[facility] LABORATORYCLIA [id number] [address] Nucleated RBC/100 WBC (Bld) [Ratio] 0.0 /100 WBC Normal [facility] Comment on above: Order Comment: Speci men Type: BLOOD SPECIMENOrdering Facility: [facility] Address: [address] [place] [address] Performed By: #### 5 7021-8, [id number] ####[facility] LABORATORYCLIA [id number] [address] Ovalocytes LM Ql (Bld) Few Normal [facility] Comment on above: Order Comment: Speci men Type: BLOOD SPECIMENOrdering Facility: [facility] Address: [address] [place] [address] Performed By: #### 5 7021-8, [id number] ####[facility] LABORATORYCLIA [id number] [address] OF [place] Platelet mean volume (Bld) [Entitic vol] 12.1 fL Normal 9.0-12.7 [facility] Comment on above: Order Comment: Speci men Type: BLOOD SPECIMENOrdering Facility: [facility] Address: [address] [place] [address] Performed By: #### 5 7021-8, [id number] ####[facility] LABORATORYCLIA [id number] [address] [place] Platelets (Bld) [#/Vol] 126 10*3/uL Low 150-400 [facility] Comment on above: Order Comment: Speci men Type: BLOOD SPECIMENOrdering Facility: [facility] Address: [address] [place] [address] Result Comment: No c lot detected. Performed By: #### 5 7021-8, [id number] ####[facility] LABORATORYCLIA [id number] [address] [place] Platelets Estimate (Bld) [#/Vol] Decreased Normal [facility] Comment on above: Order Comment: Speci men Type: BLOOD SPECIMENOrdering Facility: [facility] Address: [address] [place] [address] Performed By: #### 5 7021-8, [id number] ####[facility] LABORATORYCLIA [id number] [address] OF [facility] Polychromasia LM Ql (Bld) Slight Normal [facility] Comment on above: Order Comment: Speci men Type: BLOOD SPECIMENOrdering Facility: [facility] Address: [address] [place] [address] Performed By: #### 5 7021-8, [id number] ####[facility] LABORATORYCLIA [id number] [place] [address] [place] [facility] RBC (Bld) [#/Vol] 3.24 10*6/uL Low 3.90-5.20 [facility] Comment on above: Order Comment: Speci men Type: BLOOD SPECIMENOrdering Facility: [facility] Address: [address] [place] [address] Performed By: #### 5 7021-8, [id number] ####[facility] LABORATORYCLIA [id number] [address] [place] RBC FRAGMENTS Few Abnormal None Seen [facility] Comment on above: Order Comment: Speci men Type: BLOOD SPECIMENOrdering Facility: [facility] Address: [address] [place] [address] Performed By: #### 5 7021-8, [id number] ####[facility] LABORATORYCLIA [id number] [address] RED CELL MORPH Reviewed: see result s of individual morphologies Normal [facility] Comment on above: Order Comment: Speci men Type: BLOOD SPECIMENOrdering Facility: [facility] Address: [address] [place] [address] Performed By: #### 5 7021-8, [id number] ####[facility] LABORATORYCLIA [id number] [address] ROULE[place] Present Normal [facility] Comment on above: Order Comment: Speci men Type: BLOOD SPECIMENOrdering Facility: [facility] Address: [address] [place] [address] Performed By: #### 5 7021-8, [id number] ####[facility] LABORATORYCLIA [id number] [address] OF [place] Variant lymphocytes/100 WBC (Bld) 3.0 % Normal [facility] Comment on above: Order Comment: Speci men Type: BLOOD SPECIMENOrdering Facility: [facility] Address: [address] [place] [address] Performed By: #### 5 7021-8, [id number] ####[facility] LABORATORYCLIA [id number] [address] WBC (Bld) [#/Vol] 2.18 10*3/uL Low 3.70-11.00 [facility] Comment on above: Order Comment: Speci men Type: BLOOD SPECIMENOrdering Facility: [facility] Address: [address] [place] [address] Performed By: #### 5 7021-8, [id number] ####[facility] LABORATORYCLIA [id number] [address] Comprehensive metabolic 2000 panelon 02-10-2025 Albumin [Mass/Vol] 3.5 g/dL Low 3.9-4.9 [facility] Comment on above: Order Comment: Speci men Type: BLOOD SPECIMENOrdering Facility: [facility] Address: [address] [place] [address] Performed By: #### 2 4323-8 ####[facility] LABORATORYCLIA [id number] [address] [place] ALP [Catalytic activity/Vol] 94 U/L Normal 34-123 [facility] Comment on above: Order Comment: Speci men Type: BLOOD SPECIMENOrdering Facility: [facility] Address: [address] [place] [address] Performed By: #### 2 4323-8 ####[facility] LABORATORYCLIA [id number] [address] [place] ALT With P-5'-P [Catalytic activity/Vol] Normal [facility] Comment on above: Order Comment: Speci men Type: BLOOD SPECIMENOrdering Facility: [facility] Address: [address] [place] [address] Result Comment: Unab le to assay due to interference from hemolysis. Suggest reorder as clinically indicated. Performed By: #### 2 4323-8 ####[facility] LABORATORYCLIA [id number] [address] STATES OF [facility] Anion gap [Moles/Vol] 15 mmol/L Normal 8-15 [facility] Comment on above: Order Comment: Speci men Type: BLOOD SPECIMENOrdering Facility: [facility] Address: [address] [place] [address] Performed By: #### 2 4323-8 ####[facility] LABORATORYCLIA [id number] [address] AST With P-5'-P [Catalytic activity/Vol] Normal [facility] Comment on above: Order Comment: Speci men Type: BLOOD SPECIMENOrdering Facility: [facility] Address: [address] [place] [address] Result Comment: Unab le to assay due to interference from hemolysis. Suggest reorder as clinically indicated. Performed By: #### 2 4323-8 ####[facility] LABORATORYCLIA [id number] [address] STATES OF [facility] Bilirubin [Mass/Vol] 1.2 mg/dL Normal 0.2-1.3 [facility] Comment on above: Order Comment: Speci men Type: BLOOD SPECIMENOrdering Facility: [facility] Address: [address] [place] [address] Performed By: #### 2 4323-8 ####[facility] LABORATORYCLIA [id number] [address] [place] Calcium [Mass/Vol] 8.7 mg/dL Normal 8.5-10.2 [facility] Comment on above: Order Comment: Speci men Type: BLOOD SPECIMENOrdering Facility: [facility] Address: [address] [place] [address] Performed By: #### 2 4323-8 ####[facility] LABORATORYCLIA [id number] [place] [address] [place] Chloride [Moles/Vol] 92 mmol/L Low 98-107 [facility] Comment on above: Order Comment: Speci men Type: BLOOD SPECIMENOrdering Facility: [facility] Address: [address] [place] [address] Performed By: #### 2 4323-8 ####[facility] LABORATORYCLIA [id number] [address] [place] CO2 [Moles/Vol] 16 mmol/L Low 22-30 [facility] Comment on above: Order Comment: Speci men Type: BLOOD SPECIMENOrdering Facility: [facility] Address: [address] [place] [address] Performed By: #### 2 4323-8 ####[facility] LABORATORYCLIA [id number] [address] [place] Creatinine [Mass/Vol] 0.55 mg/dL Low 0.58-0.96 [facility] Comment on above: Order Comment: Speci men Type: BLOOD SPECIMENOrdering Facility: [facility] Address: [address] [place] [address] Performed By: #### 2 4323-8 ####[facility] LABORATORYCLIA [id number] [address] Creatinine and Glomerular filtration rate.predicted panel (S/P/Bld) 91 mL/min/1.73m??? Normal >=60 [facility] Comment on above: Order Comment: Speci men Type: BLOOD SPECIMENOrdering Facility: [facility] Address: [address] [place] [address] Result Comment: Kya mated Glomerular Filtration Rate [...] actual GFR. Performed By: #### 2 4323-8 ####[facility] LABORATORYCLIA [id number] [place] [address] [place] Glucose [Mass/Vol] 217 mg/dL High 74-99 [facility] Comment on above: Order Comment: Dayron stinson Type: BLOOD SPECIMENOrdering Facility: [facility] Address: [address] [place] [address] Result Comment: The [place] [employer] (ADA) provides guidance for cutoff [...] Standards of Medical Care in Diabetes 2016, [place] [employer]. Diabetes Care. 2016.39(Suppl 1). Performed By: #### 2 4323-8 ####[facility] LABORATORYCLIA [id number] [place] [address] [place] Potassium [Moles/Vol] Normal [facility] Comment on above: Order Comment: Dayron stinson Type: BLOOD SPECIMENOrdering Facility: [facility] Address: [address] [place] [address] Result Comment: Unab le to assay due to interference from hemolysis. Suggest reorder as clinically indicated. Performed By: #### 2 4323-8 ####[facility] LABORATORYCLIA [id number] [place] [address] [place] Protein [Mass/Vol] 6.5 g/dL Normal 6.3-8.0 [facility] Comment on above: Order Comment: Dayron stinson Type: BLOOD SPECIMENOrdering Facility: [facility] Address: [address] [place], [place] [id number] Performed By: #### 2 4323-8 ####[facility]ORATORYCLIA [id number] [place] [id number] [place] OF [facility] Sodium [Moles/Vol] 123 mmol/L Low 136-144 [facility] Comment on above: Order Comment: Speci men Type: BLOOD SPECIMENOrdering Facility: [facility] Address: [address] [place] [address] Performed By: #### 2 4323-8 ####[facility] LABORATORYCLIA [id number] [place] [id number] [place] Urea nitrogen [Mass/Vol] 9 mg/dL Normal 7-21 [facility] Comment on above: Order Comment: Speci men Type: BLOOD SPECIMENOrdering Facility: [facility] Address: [address] [place] [address] Performed By: #### 2 4323-8 ####[facility] LABORATORYCLIA [id number] [place] [id number] [place] ECG COMPLETEon 02-10-2025 ECG COMPLETE Normal [facility] ED NOTEon 02-10-2025 ED NOTE HNO ID: [id number] Author: AYAZ HOLLOWAY RN Service: ? Author Type: Registered Nurse Type: ED Notes Filed: 02/11/2025 00:44 Note Text: MD Weber at bedside when temp of 99.9f was taken Normal [facility] ED NOTE HNO ID: [id number] Author: AYAZ HOLLOWAY RN Service: ? Author Type: Registered Nurse Type: ED Notes Filed: 02/10/2025 20:41 Note Text: notified of need for US IV due to inability to draw blood. Normal [facility] ED NOTE HNO ID: [id number] Author: GARIMA TORO RN Service: ? Author Type: Registered Nurse Type: ED Notes Filed: 02/10/2025 20:27 Note Text: Bed: 20-ED Expected date: Expected time: Means of arrival: Comments: Triage Normal [facility] ED NOTE HNO ID: [id number] Author: JAYLEEN BOB RN Service: Emergency Medicine Author Type: Registered Nurse Type: ED Notes Filed: 02/10/2025 19:35 Note Text: Patient placed in the internal waiting room Normal [facility] ED NOTE HNO ID: [id number] Author: JAYLEEN BOB RN Service: Emergency Medicine Author Type: Registered Nurse Type: ED Notes Filed: 02/10/2025 19:24 Note Text: ED Xray notified patient ready for ordered radiology in the internal waiting room Normal [facility] ED PROV NOTEon 02-10-2025 ED PROV NOTE Normal [facility] ED PROV NOTE Normal [facility] ED Triage Noteon 02-10-2025 ED Triage Note Normal [facility] PATHOLOGIST INTERPRETATION C BC AND DIFFERENTIAL (LAB REFLEX ORDER-NO BILL)on 02-10-2025 Back Up Machine Operator review Jimenez (Unsp spec) [Interp] Reviewed by Diya Albarran MD [facility] Comment on above: Order Comment: Speci men Type: BLOOD SPECIMENOrdering Facility: [facility] Address: [address] [place] [address] Performed By: #### 5 7021-8, [id number] ####[facility] LABORATORYCLIA [id number] [address] STAFF REVIEW, CBCDIF Normal [facility] Comment on above: Order Comment: Speci men Type: BLOOD SPECIMENOrdering Facility: [facility] Address: [address] [place] [address] Performed By: #### 5 7021-8, [id number] ####[facility] LABORATORYCLIA [id number] [address] POTASSIUMon 02-10-2025 Potassium [Moles/Vol] 4.4 mmol/L Normal 3.7-5.1 [facility] Comment on above: Order Comment: Speci men Type: BLOOD SPECIMENOrdering Facility: [facility] Address: [address] [place] [address] Performed By: #### K 1 ####[facility] LABORATORYCLIA [id number] [address] Urinalysis complete panel (U )on 02-10-2025 Bilirubin Ql (U) Negative Normal Negative [facility] Comment on above: Order Comment: Speci men Type: URINE SPECIMENOrdering Facility: [facility] Address: [address] [place] [address] Performed By: #### 2 4356-8 ####[facility] LABORATORYCLIA [id number] [address] [place] Clarity (Unsp spec) Clear Normal Clear [facility] Comment on above: Order Comment: Speci men Type: URINE SPECIMENOrdering Facility: [facility] Address: [address] [place] [address] Performed By: #### 2 4356-8 ####[facility] LABORATORYCLIA [id number] [address] Color (U) Yellow Normal Yellow [facility] Comment on above: Order Comment: Speci men Type: URINE SPECIMENOrdering Facility: [facility] Address: [address] [place] [address] Performed By: #### 2 4356-8 ####[facility] LABORATORYCLIA [id number] [address] Epithelial cells LM.HPF (Urine sed) [#/Area] Few Normal [facility] Comment on above: Order Comment: Speci men Type: URINE SPECIMENOrdering Facility: [facility] Address: [address] [place] [address] Performed By: #### 2 4356-8 ####[facility] LABORATORYCLIA [id number] [address] Glucose Test strip (U) [Mass/Vol] 2+ Abnormal Negative [facility] Comment on above: Order Comment: Speci men Type: URINE SPECIMENOrdering Facility: [facility] Address: [address] [place] [address] Performed By: #### 2 4356-8 ####[facility] LABORATORYCLIA [id number] [address] [place] Hemoglobin Ql (U) Negative Normal Negative [facility] Comment on above: Order Comment: Speci men Type: URINE SPECIMENOrdering Facility: [facility] Address: [address] [place] [address] Performed By: #### 2 4356-8 ####[facility] LABORATORYCLIA [id number] [place] [address] [place] Ketones Ql (U) Negative Normal Negative [facility] Comment on above: Order Comment: Speci men Type: URINE SPECIMENOrdering Facility: [facility] Address: [address] [place] [address] Performed By: #### 2 4356-8 ####[facility] LABORATORYCLIA [id number] [address] [facility] Leukocyte esterase Test strip Ql (U) Negative Normal Negative [facility] Comment on above: Order Comment: Speci men Type: URINE SPECIMENOrdering Facility: [facility] Address: [address] [place] [address] Performed By: #### 2 4356-8 ####[facility] LABORATORYCLIA [id number] [address] [place] Nitrite Ql (U) Negative Normal Negative [facility] Comment on above: Order Comment: Speci men Type: URINE SPECIMENOrdering Facility: [facility] Address: [address] [place] [address] Performed By: #### 2 4356-8 ####[facility] LABORATORYCLIA [id number] [address] [place] pH (U) 7.0 [pH] Normal 5.0-8.0 [facility] Comment on above: Order Comment: Speci men Type: URINE SPECIMENOrdering Facility: [facility] Address: [address] [place] [address] Performed By: #### 2 4356-8 ####[facility] LABORATORYCLIA [id number] [place] [address] [place] Protein (U) [Mass/Vol] 1+ Abnormal Negative [facility] Comment on above: Order Comment: Speci men Type: URINE SPECIMENOrdering Facility: [facility] Address: [address] [place] [address] Performed By: #### 2 4356-8 ####[facility] LABORATORYCLIA [id number] [address] [facility] RBC LM.HPF (Urine sed) [#/Area] 3-5 /HPF Abnormal 0-3 /HPF [facility] Comment on above: Order Comment: Speci men Type: URINE SPECIMENOrdering Facility: [facility] Address: [address] [place] [address] Performed By: #### 2 4356-8 ####[facility] EASTCLIA [id number] [address] Specific gravity (U) [Rel density] 1.010 Normal 1.005-1.030 [facility] Comment on above: Order Comment: Speci men Type: URINE SPECIMENOrdering Facility: [facility] Address: [address] [place] [address] Performed By: #### 2 4356-8 ####[facility] LABORATORYCLIA [id number] [address] Urobilinogen Ql (U) 0.2 EU/dL Normal 0.2 EU/d L, 1.0 EU/dL [facility] Comment on above: Order Comment: Speci men Type: URINE SPECIMENOrdering Facility: [facility] Address: [address] [place] [address] Performed By: #### 2 4356-8 ####[facility] LABORATORYCLIA [id number] [address] WBC LM.HPF (Urine sed) [#/Area] 0-5 /HPF Normal 0-5 /HPF [facility] Comment on above: Order Comment: Speci men Type: URINE SPECIMENOrdering Facility: [facility] Address: [address] [place] [address] Performed By: #### 2 4356-8 ####[facility] LABORATORYCLIA [id number] [place] [address] [place] XR CHEST 2V FRONTAL/LATon XR CHEST 2V FRONTAL/LAT Normal [facility] CNPNon 02-09-2025 CNPN Telephone ([place]) -- TELMA TINEO ([id number]) 1940 F Date Time Provider Department 02/09/25 MARIA ISABEL SILVERIO During your visit today, we recorded the following information about you: Maria Isabel Silverio RN 02/09/2025 12:16 PM Signed [facility] Care Coordination FOLLOW-UP NOTE Patient identified by [...] - Blood-Glucose Meter,Continuous (FREESTYLE TOLU 3 READER) [facility] [place] Use to check blood sugar at least [...] once daily. - Blood Pressure Test Kit-Large (Pivot ARM BP MONITOR) 1 Each once daily. [...] 05/20/2023 Impaired cognition [R41.89] 05/20/2023 Diagnosed: 05/20/2023 intermediate current use of anticoagulant therapy *05/20/2023 (more content not included)... Normal [facility] Lenin 02-08-2025 IMMANUEL Telephone (HEMAWS) -- TELMA TINEO ([id number]) 1940 F Date Time Provider Department 02/08/25 [...] once daily. - Blood Pressure Test Kit-Large (Pivot ARM BP MONITOR) 1 Each once daily. [...] 05/20/2023 Impaired cognition [R41.89] 05/20/2023 Diagnosed: 05/20/2023 intermediate current use of anticoagulant therapy *05/20/2023 Diagnosed: [...] Encounter Status:Closed by AZRA ZUNIGA [facility]08/[facility] TELMA TINEO ([id number]) 1940 F Date Time Provider Department 02/08/25 MARIA ISABEL SILVERIO During your visit today, we recorded the following information about you: Maria Isabel Silverio, MAGNUS 02/08/2025 12:39 PM Signed [facility] Care Coordination FOLLOW-UP NOTE Patient identified by [...] Fully Assessed Reason for Visit: Care Coordination [3413] Cmt: Follow Up Note Prescriptions as of [...] - Blood-Glucose Meter,Continuous (FREESTYLE TOLU 3 READER) [facility] [place] Use to check blood sugar at least [...] once daily. - Blood Pressure Test Kit-Large (Pivot ARM BP MONITOR) 1 Each once daily. 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 Normal [facility] [facility] W Auto Differential pane l (Bld)on 02-05-2025 Basophils (Bld) [#/Vol] 10*3/uL Normal <0.11 [facility] Comment on above: Order Comment: Speci men Type: BLOOD SPECIMEN Ordering Facility: [facility] Address: [address] [place] [address] Performed By: #### 5 7021-8 #### [facility] CLIA [id number] [address] [place] [address] [place] Basophils/100 WBC (Bld) 0.5 % Normal [facility] Comment on above: Order Comment: Speci men Type: BLOOD SPECIMEN Ordering Facility: [facility] Address: [address] [place] [address] Performed By: #### 5 7021-8 #### [facility] CLIA [id number] [address] [place] [address] [place] Differential cell count method Nom (Bld) Auto Normal [facility] Comment on above: Order Comment: Speci men Type: BLOOD SPECIMEN Ordering Facility: [facility] Address: [address] [place] [address] Performed By: #### 5 7021-8 #### [facility] CLIA [id number] [address] [place] [address] [place] Eosinophils (Bld) [#/Vol] 0.10 10*3/uL Normal <0.46 [facility] Comment on above: Order Comment: Speci men Type: BLOOD SPECIMEN Ordering Facility: [facility] Address: [address] [place] [address] Performed By: #### 5 7021-8 #### [facility] CLIA [id number] [address] [place] [address] [place] Eosinophils/100 WBC (Bld) 2.4 % Normal [facility] Comment on above: Order Comment: Speci men Type: BLOOD SPECIMEN Ordering Facility: [facility] Address: [address] [place] [address] Performed By: #### 5 7021-8 #### [facility] CLIA [id number] [address] [place] [address] [place] Erythrocyte distribution width (RBC) [Ratio] 14.2 % Normal 11.5-15.0 [facility] Comment on above: Order Comment: Speci men Type: BLOOD SPECIMEN Ordering Facility: [facility] Address: [address] [place] [address] Performed By: #### 5 7021-8 #### [facility] [id number] [address] [place] [address] [place] Hematocrit (Bld) [Volume fraction] 28.5 % Low 36.0-46.0 [facility] Comment on above: Order Comment: Speci men Type: BLOOD SPECIMEN Ordering Facility: [facility] Address: [address] [place] [address] Performed By: #### 5 7021-8 #### [facility] CLIA [id number] [address] [place] [address] [place] Hemoglobin (Bld) [Mass/Vol] 9.6 g/dL Low 11.5-15.5 [facility] Comment on above: Order Comment: Speci men Type: BLOOD SPECIMEN Ordering Facility: [facility] Address: [address] [place] [address] Performed By: #### 5 7021-8 #### [facility] CLIA [id number] [address] [place] [address] [place] Immature granulocytes (Bld) [#/Vol] 10*3/uL Normal <0.10 [facility] Comment on above: Order Comment: Speci men Type: BLOOD SPECIMEN Ordering Facility: [facility] Address: [address] [place] [address] Performed By: #### 5 7021-8 #### [facility] CLIA [id number] [address] [place] [address] [place] Immature granulocytes/100 WBC (Bld) 0.5 % Normal [facility] Comment on above: Order Comment: Speci men Type: BLOOD SPECIMEN Ordering Facility: [facility] Address: [address] [place] [address] Performed By: #### 5 7021-8 #### [facility] [id number] [address] [place] [address] [place] Lymphocytes (Bld) [#/Vol] 0.71 10*3/uL Low 1.00-4.00 [facility] Comment on above: Order Comment: Speci men Type: BLOOD SPECIMEN Ordering Facility: [facility] Address: [address] [place] [address] Performed By: #### 5 7021-8 #### [facility] [id number] [address] [place] [address] [place] Lymphocytes/100 WBC (Bld) 17.0 % Normal [facility] Comment on above: Order Comment: Speci men Type: BLOOD SPECIMEN Ordering Facility: [facility] Address: [address] [place] [address] Performed By: #### 5 7021-8 #### [facility] [id number] [address] [place] [address] [place] MCH (RBC) [Entitic mass] 31.2 pg Normal 26.0-34.0 [facility] Comment on above: Order Comment: Speci men Type: BLOOD SPECIMEN Ordering Facility: [facility] Address: [address] [place] [address] Performed By: #### 5 7021-8 #### [facility] CLIA [id number] [address] [place] [address] [place] MCHC (RBC) [Mass/Vol] 33.7 g/dL Normal 30.5-36.0 [facility] Comment on above: Order Comment: Speci men Type: BLOOD SPECIMEN Ordering Facility: [facility] Address: [address] [place] [address] Performed By: #### 5 7021-8 #### [facility] CLIA [id number] [address] [place] [address] [place] MCV (RBC) [Entitic vol] 92.5 fL Normal 80.0-100.0 [facility] Comment on above: Order Comment: Speci men Type: BLOOD SPECIMEN Ordering Facility: [facility] Address: [address] [place] [address] Performed By: #### 5 7021-8 #### [facility] CLIA [id number] [address] [place] [address] [place] Monocytes (Bld) [#/Vol] 0.35 10*3/uL Normal <0.87 [facility] Comment on above: Order Comment: Speci men Type: BLOOD SPECIMEN Ordering Facility: [facility] Address: [address] [place] [address] Performed By: #### 5 7021-8 #### [facility] CLIA [id number] [address] [place] [address] [place] Monocytes/100 WBC (Bld) 8.4 % Normal [facility] Comment on above: Order Comment: Speci men Type: BLOOD SPECIMEN Ordering Facility: [facility] Address: [address] [place] [address] Performed By: #### 5 7021-8 #### [facility] CLIA [id number] [address] [place] [address] [place] Neutrophils (Bld) [#/Vol] 2.98 10*3/uL Normal 1.45-7.50 [facility] Comment on above: Order Comment: Speci men Type: BLOOD SPECIMEN Ordering Facility: [facility] Address: [address] [place] [address] Performed By: #### 5 7021-8 #### [facility] CLIA [id number] [address] [place] [address] [place] Neutrophils/100 WBC (Bld) 71.2 % Normal [facility] Comment on above: Order Comment: Speci men Type: BLOOD SPECIMEN Ordering Facility: [facility] Address: [address] [place] [address] Performed By: #### 5 7021-8 #### [facility] [id number] [address] [place] [address] [place] Nucleated RBC (Bld) [#/Vol] 10*3/uL Normal <0.01 [facility] Comment on above: Order Comment: Speci men Type: BLOOD SPECIMEN Ordering Facility: [facility] Address: [address] [place] [address] Performed By: #### 5 7021-8 #### [facility] [id number] [address] [place] [address] [place] Nucleated RBC/100 WBC (Bld) [Ratio] 0.0 /100 WBC Normal [facility] Comment on above: Order Comment: Speci men Type: BLOOD SPECIMEN Ordering Facility: [facility] Address: [address] [place] [address] Performed By: #### 5 7021-8 #### [facility] [id number] [address] [place] [address] [place] Platelet mean volume (Bld) [Entitic vol] 12.2 fL Normal 9.0-12.7 [facility] Comment on above: Order Comment: Speci men Type: BLOOD SPECIMEN Ordering Facility: [facility] Address: [address] [place], [place] [id number] Performed By: #### 5 7021-8 #### [facility] CLIA [id number] [address] [place] [address] [place] Platelets (Bld) [#/Vol] 131 10*3/uL Low 150-400 [facility] Comment on above: Order Comment: Speci men Type: BLOOD SPECIMEN Ordering Facility: [facility] Address: [address] [place] [address] Performed By: #### 5 7021-8 #### [facility] CLIA [id number] [address] [place] [address] [place] RBC (Bld) [#/Vol] 3.08 10*6/uL Low 3.90-5.20 [facility] Comment on above: Order Comment: Speci men Type: BLOOD SPECIMEN Ordering Facility: [facility] Address: [address] [place] [address] Performed By: #### 5 7021-8 #### [facility] CLIA [id number] [address] [place] [address] [place] WBC (Bld) [#/Vol] 4.18 10*3/uL Normal 3.70-11.00 [facility] Comment on above: Order Comment: Speci men Type: BLOOD SPECIMEN Ordering Facility: [facility] Address: [address] [place], [place] [address] Performed By: #### 5 7021-8 #### [facility] CLIA [id number] [address] [place] [address] OF [place]LA Lenin 02-05-2025 IMM[facility]UEL Telephone (HEMAWS) -- TELMA TINEO ([id number]) 1940 F Date Time Provider Department 02/05/25 [...] - Blood-Glucose Meter,Continuous (FREESTYLE TOLU 3 READER) [facility] Use to check blood sugar at least [...] 05/20/2023 Hyperlipi (more content not included)... [facility]EL[facility]INE[facility] ([id number]) 1940 F Date Time Provider Department 02/05/25 [...] Person calling: son: Timothy Call patient at: [phone] (home) [phone] (cell) Was an appointment scheduled: No. She is at chemo today. Closing statement: Henok Ortiz MD 02/05/2025 9:43 AM Signed With her issues,likely needs seen Li Allison MA 02/05/2025 10:03 AM Signed Message left for sonTimothy to call back to schedule an appointment for Telma. MAL Miller Krystle, RN 02/05/2025 5:05 PM Signed CXR completed today with Dr. uYsuf. ATB started. Follow up scheduled for 02/11/2025 [...] Fully Assessed Reason for Visit: Patient Question [2573] Cmt: cough Prescriptions as of 02/05/2025 - [...] - Blood-Glucose Meter,Continuous (FREESTYLE TOLU 3 READER) [facility] Use to check blood sugar at least [...] once daily. - Blood Pressure Test Kit-Large (Pivot ARM BP MONITOR) 1 Each once daily. 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 [facility]ELMA [facility]INE[facility] ([id number]) 1940 F Date Time Provider Department 02/05/25 [...] Father is Child/Children: Yes. How many? 6 rn homecare arrangements needed: No Siblings: 5 sisters and 5 brothers Grandchild(nirmala): > 5 Home Health Provider: No Community Services: No Cherie Identified: Yes Quaker/Spirituality: Holiness Are these practices or beliefs that may affect or influence treatment? 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 No Financial Distress: No : [...] EPIC: No Health Care Durable Power of Laboratory Miller: No and provided Living Will information for [...] Place a (more content not included)... Normal [facility] Telephone (LUKE) -- TELMA TINEO ([id number]) 1940 F Date Time Provider Department 02/05/25 [...] once daily. - Blood Pressure Test Kit-Large (Pivot ARM BP MONITOR) 1 Each once daily. 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 Normal [facility] XR CHEST 2V FRONTAL/LATon XR CHEST [...] with pneumonia. Follow-up to document resolution recommended Wallpaper Consultant: AMBER Transcribe Date/Time: Feb 05 2025 12:27P Dictated by : VELASQUEZ BENTON MD This examination was interpreted and the report reviewed and electronically signed by: VELASQUEZ BENTON MD on Feb 05 2025 12:29PM EST [id number] Normal [facility] XR Chest PA and Lateralon IMPRESSION: New airspace disease in the left lower lobe is consistent with pneumonia. Follow-up to document resolution recommended Wallpaper Consultant: PSCB Transcribe Date/Time: Feb 05 2025 12:27P [...] soft tissues: Unremarkable. DIVISION OF RADIOLOGY Provider, [facility] - 02/05/2025 * * *Final [...] with pneumonia. Follow-up to document resolution recommended Wallpaper Consultant: PSCB Transcribe Date/Time: Feb 05 2025 12:27P Dictated by : VELASQUEZ BENTON MD This examination was interpreted and the report reviewed and electronically signed by: VELASQUEZ BENTON MD on Feb 05 2025 12:29PM EST [facility] Radiology Study observation (narrative) [facility] XR Chest PA and LateralOrder ed By: Ccf Provider on 02-05-2025 [facility] CNOVon 02-04-2025 CNOV Normal [facility] CNPNon 02-04-2025 CNPN Telephone (LUKE) -- TELMA TINEO ([id number]) 1940 F Date Time Provider Department 02/04/25 [...] Fully Assessed Reason for Visit: Care Coordination [7599] Cmt: Follow up Note Prescriptions as of [...] - Blood-Glucose Meter,Continuous (FREESTYLE TOLU 3 READER) [facility] Use to check blood sugar at least [...] once daily. - Blood Pressure Test Kit-Large ([place] Bi[employer] ExchangeLIFE ARM BP MONITOR) 1 Each once daily. [...] 05/20/2023 Impaired cognition [R41.89] 05/20/2023 Diagnosed: 05/20/2023 intermediate current use of anticoagulant therapy *05/20/2023 Diagnosed: [...] Status:Closed by MARIA ISABEL SILVERIO on 02/05/25 [facility] Lenin 02-03-2025 CNPN Telephone (JUSTA) -- TELMA TINEO ([id number]) 1940 F Date Time Provider Department 02/03/25 FINANCIAL NAVIGATOR VIRAJ MRAR During your visit today, we recorded the following information about you: Nakul Bliss 02/03/2025 12:25 PM Signed 1st time treatment report. Spoke with patient's son, Timothy, and explained that the patient has Medicare A and B as well as [facility] Medicaid so she is covered at 100%. Told him to call me periodically to see if any assistance opens up for her pancreatic cancer. Sent Cost Facit to patient's mychart. Diagnosis: Pancreatic Cancer - C25.0...01/19/25 Doctor: Juan Miguel Yusuf MD...[id number] Allergies As of Date: 02/03/2025 Noted Allergy Reaction PENICILLINS 09/14/2021 10 - Anaphylaxis TETRACYCLINE 09/14/2021 2 - Rash TRAMADOL 07/01/2024 5 - Intolerance Comments: Trembling Date Reviewed: 02/01/2025 Reviewed by: Shabnam Ruiz LPN - Fully Assessed Reason for Visit: Benefits Investigation [2828] Prescriptions as of 02/03/2025 - insulin NPH-insulin [...] - Blood-Glucose Meter,Continuous (FREESTYLE TOLU 3 READER) [facility] Use to check blood sugar at least [...] once daily. - Blood Pressure Test Kit-Large (Pivot ARM BP MONITOR) 1 Each once daily. 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 Admitted to [facility] and then transferred to [facility]. Admission Information ADMIT DATE: 01/14/2025 DISCHARGE DATE: 01/23/2025 REASON I WAS IN THE HOSPITAL: Uncontrolled diabetes, melena(GI bleed), pancreatic adenocarcinoma, obstructive jaundice, duodenal ulcer SUMMARY OF WHAT HAPPENED WHILE I WAS IN THE HOSPITAL: The patient is a pleasant 84-year-old female with history of A-fib on Eliquis and type 2 diabetes presented from [place] with pancreatic mass. She underwent EUS, ERCP [...] also wishes to recheck out to her box person earlier this week to ensure that he [...] daily) a (more content not included)... Normal [facility] 01-29-2025 [facility] Telephone (LUKE) -- TELMA TINEO ([id number]) 1940 F Date Time Provider Department 01/29/25 [...] her mother. Print out of offices by [facility] that accept Medicaid provided to pt's daughter. A few additional resources in [facility] provided as well. SW and pt also [...] - Blood-Glucose Meter,Continuous (FREESTYLE TOLU 3 READER) [facility] Use to check blood sugar at least [...] once daily. - Blood Pressure Test Kit-Large (Pivot ARM BP MONITOR) 1 Each once daily. [...] 07/01/2024 Diagnosed: more content not included)... Normal [facility] CNPN Telephone (LUKE) -- TELMA TINEO ([id number]) 1940 F Date Time Provider Department 01/29/25 MARIA ISABEL SILVERIO During your visit today, we recorded the following information about you: Maria Isabel Silverio RN 01/29/2025 10:32 AM Signed CYCLE 1/DAY 1 POST TREATMENT CALL Today's date: January 29, 2025 Treatment Regimen: Gemzar/Abraxane C1D1 Date: 01/28/25 Call to patient, message left to call me back and phone/contact number provided. Maria Isabel Silverio RN [facility] Trevor 01/29/2025 10:39 AM Signed Son returned call. Care coord went to [facility]. Maria Isabel Silverio RN 01/29/2025 11:54 [...] awhile. He has called a place in [place] and waiting to hear back from them [...] 01/29/2025 11:54 AM Signed Attempted to call [facility] to inquire first availability. That department is closed on Saturday, will try again on Saturday. MAGNUS Amos Cathleen, MAGNUS 02/01/2025 11:46 AM Signed Call to [facility]. Was able to leave VM with question along with my contact information for them to return call. MAGNUS Amos Cathleen, MAGNUS 02/01/2025 1:52 PM Signed [facility] returned call and next availability for an emergency case would be several months out at this time. Elaina Silverio RN Allergies As of Date: 01/29/2025 Noted Allergy Reaction PENICILLINS 09/14/2021 10 - Anaphylaxis TETRACYCLINE 09/14/2021 2 - Rash TRAMADOL 07/01/2024 5 - Intolerance Comments: Trembling Date Reviewed: 01/28/2025 Reviewed by: Addison Monreal RN - Fully Assessed Reason for Visit: Care Coordination [0713] Prescriptions as of 02/04/2025 - insulin NPH-insulin [...] - Blood-Glucose Meter,Continuous (FREESTYLE TOLU 3 READER) [facility] Use to check blood sugar at least [...] tablet Take (more content not included)... [facility]ELMA [facility]INE[facility] ([id number]) 1940 F Date Time Provider Department 01/29/25 [...] at least 10 days. Please send to [facility] in [place] Patient has been identified by name and birthdate. Duration of symptoms: Person calling: son: Timothy Call patient at: at home [phone] (home) [phone] (cell) Was an appointment scheduled: No Closing [...] once daily. - Blood Pressure Test Kit-Large (Pivot ARM BP MONITOR) 1 Each once daily. 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 Normal [facility] CBC W Auto Differential pane l (Bld)on 01-28-2025 Basophils (Bld) [#/Vol] 0.04 10*3/uL Normal <0.11 [facility] Comment on above: Order Comment: Speci men Type: BLOOD SPECIMEN Ordering Facility: [facility] Address: [address] [place] [address] Performed By: #### 5 7021-8 #### [facility] CLIA [id number] [address] [place] [address] [place] Basophils/100 WBC (Bld) 0.4 % Normal [facility] Comment on above: Order Comment: Speci men Type: BLOOD SPECIMEN Ordering Facility: [facility] Address: [address] [place] [address] Performed By: #### 5 7021-8 #### [facility] CLIA [id number] [address] [place] [address] [place] Differential cell count method Nom (Bld) Auto Normal [facility] Comment on above: Order Comment: Speci men Type: BLOOD SPECIMEN Ordering Facility: [facility] Address: [address] [place] [address] Performed By: #### 5 7021-8 #### [facility] CLIA [id number] [address] [place] [address] [place] Eosinophils (Bld) [#/Vol] 0.16 10*3/uL Normal <0.46 [facility] Comment on above: Order Comment: Speci men Type: BLOOD SPECIMEN Ordering Facility: [facility] Address: [address] [place] [address] Performed By: #### 5 7021-8 #### [facility] CLIA [id number] [address] [place] [address] [place] Eosinophils/100 WBC (Bld) 1.7 % Normal [facility] Comment on above: Order Comment: Speci men Type: BLOOD SPECIMEN Ordering Facility: [facility] Address: [address] [place] [address] Performed By: #### 5 7021-8 #### [facility] CLIA [id number] [address] [place] [address] [place] Erythrocyte distribution width (RBC) [Ratio] 15.1 % High 11.5-15.0 [facility] Comment on above: Order Comment: Speci men Type: BLOOD SPECIMEN Ordering Facility: [facility] Address: [address] [place] [address] Performed By: #### 5 7021-8 #### [facility] CLIA [id number] [address] [place] [address] [place] Hematocrit (Bld) [Volume fraction] 32.3 % Low 36.0-46.0 [facility] Comment on above: Order Comment: Speci men Type: BLOOD SPECIMEN Ordering Facility: [facility] Address: [address] [place] [address] Performed By: #### 5 7021-8 #### [facility] CLIA [id number] [address] [place] [address] [place] Hemoglobin (Bld) [Mass/Vol] 10.6 g/dL Low 11.5-15.5 [facility] Comment on above: Order Comment: Speci men Type: BLOOD SPECIMEN Ordering Facility: [facility] Address: [address] [place] [address] Performed By: #### 5 7021-8 #### [facility] CLIA [id number] [address] [place] [address] [place] Immature granulocytes (Bld) [#/Vol] 0.04 10*3/uL Normal <0.10 [facility] Comment on above: Order Comment: Speci men Type: BLOOD SPECIMEN Ordering Facility: [facility] Address: [address] [place] [address] Performed By: #### 5 7021-8 #### [facility] CLIA [id number] [address] [place] [address] [place] Immature granulocytes/100 WBC (Bld) 0.4 % Normal [facility] Comment on above: Order Comment: Speci men Type: BLOOD SPECIMEN Ordering Facility: [facility] Address: [address] [place] [address] Performed By: #### 5 7021-8 #### [facility] CLIA [id number] [address] [place] [address] [place] Lymphocytes (Bld) [#/Vol] 1.21 10*3/uL Normal 1.00-4.00 [facility] Comment on above: Order Comment: Speci men Type: BLOOD SPECIMEN Ordering Facility: [facility] Address: [address] [place] [address] Performed By: #### 5 7021-8 #### [facility] CLIA [id number] [address] [place] [address] [place] Lymphocytes/100 WBC (Bld) 12.8 % Normal [facility] Comment on above: Order Comment: Speci men Type: BLOOD SPECIMEN Ordering Facility: [facility] Address: [address] [place] [address] Performed By: #### 5 7021-8 #### [facility] CLIA [id number] [address] [place] [address] [place] MCH (RBC) [Entitic mass] 30.7 pg Normal 26.0-34.0 [facility] Comment on above: Order Comment: Speci men Type: BLOOD SPECIMEN Ordering Facility: [facility] Address: [address] [place] [address] Performed By: #### 5 7021-8 #### [facility] CLIA [id number] [address] [place] [address] [place] MCHC (RBC) [Mass/Vol] 32.8 g/dL Normal 30.5-36.0 [facility] Comment on above: Order Comment: Speci men Type: BLOOD SPECIMEN Ordering Facility: [facility] Address: [address] [place], [place] [address] Performed By: #### 5 7021-8 #### [facility] CLIA [id number] [address] [place] [address] [place] MCV (RBC) [Entitic vol] 93.6 fL Normal 80.0-100.0 [facility] Comment on above: Order Comment: Speci men Type: BLOOD SPECIMEN Ordering Facility: [facility] Address: [address] [place] [address] Performed By: #### 5 7021-8 #### [facility] CLIA [id number] [address] [place] [address] [place] Monocytes (Bld) [#/Vol] 1.09 10*3/uL High <0.87 [facility] Comment on above: Order Comment: Speci men Type: BLOOD SPECIMEN Ordering Facility: [facility] Address: [address] [place] [address] Performed By: #### 5 7021-8 #### [facility] CLIA [id number] [address] [place] [address] [place] Monocytes/100 WBC (Bld) 11.5 % Normal [facility] Comment on above: Order Comment: Speci men Type: BLOOD SPECIMEN Ordering Facility: [facility] Address: [address] [place] [address] Performed By: #### 5 7021-8 #### [facility] CLIA [id number] [address] [place] [address] [place] Neutrophils (Bld) [#/Vol] 6.94 10*3/uL Normal 1.45-7.50 [facility] Comment on above: Order Comment: Speci men Type: BLOOD SPECIMEN Ordering Facility: [facility] Address: [address] [place] [address] Performed By: #### 5 7021-8 #### [facility] CLIA [id number] [address] [place] [address] [place] Neutrophils/100 WBC (Bld) 73.2 % Normal [facility] Comment on above: Order Comment: Speci men Type: BLOOD SPECIMEN Ordering Facility: [facility] Address: [address] [place] [address] Performed By: #### 5 7021-8 #### [facility] CLIA [id number] [address] [place] [address] [place] Nucleated RBC (Bld) [#/Vol] 10*3/uL Normal <0.01 [facility] Comment on above: Order Comment: Speci men Type: BLOOD SPECIMEN Ordering Facility: [facility] Address: [address] [place] [address] Performed By: #### 5 7021-8 #### [facility] CLIA [id number] [address] [place] [address] [place] Nucleated RBC/100 WBC (Bld) [Ratio] 0.0 /100 WBC Normal [facility] Comment on above: Order Comment: Speci men Type: BLOOD SPECIMEN Ordering Facility: [facility] Address: [address] [place] [address] Performed By: #### 5 7021-8 #### [facility] CLIA [id number] [address] [place] [address] [place] Platelet mean volume (Bld) [Entitic vol] 12.4 fL Normal 9.0-12.7 [facility] Comment on above: Order Comment: Speci men Type: BLOOD SPECIMEN Ordering Facility: [facility] Address: [address] [place] [address] Performed By: #### 5 7021-8 #### [facility] CLIA [id number] [address] [place] [address] [place] Platelets (Bld) [#/Vol] 310 10*3/uL Normal 150-400 [facility] Comment on above: Order Comment: Speci men Type: BLOOD SPECIMEN Ordering Facility: [facility] Address: [address] [place] [address] Performed By: #### 5 7021-8 #### [facility] CLIA [id number] [address] [place] [address] [place] RBC (Bld) [#/Vol] 3.45 10*6/uL Low 3.90-5.20 [facility] Comment on above: Order Comment: Speci men Type: BLOOD SPECIMEN Ordering Facility: [facility] Address: [address] [place] [address] Performed By: #### 5 7021-8 #### [facility] CLIA [id number] [address] [place] [address] [place] WBC (Bld) [#/Vol] 9.48 10*3/uL Normal 3.70-11.00 [facility] Comment on above: Order Comment: Speci men Type: BLOOD SPECIMEN Ordering Facility: [facility] Address: [address] [place] [address] Performed By: #### 5 7021-8 #### [facility] CLIA [id number] [address] [place] [address] [place] CNPClarissa 01-28-2025 CNPN Telephone (HEMAWS) -- TELMA TINEO ([id number]) 1940 F Date Time Provider Department 01/28/25 [...] will accept pt's Medicaid insurance. SW recommended [facility] clinic to pt's son. He reports pt does have an appointment there but that it's not for a while and they were wondering about getting her in somewhere sooner d/t risk of infection while receiving treatment. SW also recommended [facility]. Son reports they have attempted to schedule with them but they will not take Medicaid. Son reports that he will continue looking and is willing to travel to [place] or [place] with pt if needed. Sw to explore [...] - Blood-Glucose Meter,Continuous (FREESTYLE TOLU 3 READER) [facility] [place] Use to check blood sugar at least [...] once daily. - Blood Pressure Test Kit-Large (Pivot ARM BP MONITOR) 1 Each once daily. 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 Normal [facility] Comprehensive metabolic 2000 panelon 01-28-2025 Albumin [Mass/Vol] 3.7 g/dL Low 3.9-4.9 [facility] Comment on above: Order Comment: Dayron stinson Type: BLOOD SPECIMEN Ordering Facility: [facility] Address: [address] [place] [address] Performed By: #### 5 7021-8 #### [facility] CLIA [id number] [address] [place] [address] [place] ALP [Catalytic activity/Vol] 148 U/L High 34-123 [facility] Comment on above: Order Comment: Dayron stinson Type: BLOOD SPECIMEN Ordering Facility: [facility] Address: [address] [place] [address] Performed By: #### 5 7021-8 #### [facility] [place] CLIA [id number] [address] [place] [address] [place] ALT With P-5'-P [Catalytic activity/Vol] 28 U/L Normal 7-38 [facility] Comment on above: Order Comment: Speci men Type: BLOOD SPECIMEN Ordering Facility: [facility] Address: [address] [place] [address] Performed By: #### 5 7021-8 #### [facility] CLIA [id number] [address] [place] [address] [place] Anion gap [Moles/Vol] 13 mmol/L Normal 8-15 [facility] Comment on above: Order Comment: Speci men Type: BLOOD SPECIMEN Ordering Facility: [facility] Address: [address] [place] [address] Performed By: #### 5 7021-8 #### [facility] CLIA [id number] [address] [place] [address] [place] AST With P-5'-P [Catalytic activity/Vol] 26 U/L Normal 13-35 [facility] Comment on above: Order Comment: Speci men Type: BLOOD SPECIMEN Ordering Facility: [facility] Address: [address] [place] [address] Performed By: #### 5 7021-8 #### [facility] CLIA [id number] [address] [place] [address] [place] Bilirubin [Mass/Vol] 2.1 mg/dL High 0.2-1.3 [facility] Comment on above: Order Comment: Speci men Type: BLOOD SPECIMEN Ordering Facility: [facility] Address: [address] [place] [address] Performed By: #### 5 7021-8 #### [facility] CLIA [id number] [address] [place] [address] [place] Calcium [Mass/Vol] 9.4 mg/dL Normal 8.5-10.2 [facility] Comment on above: Order Comment: Speci men Type: BLOOD SPECIMEN Ordering Facility: [facility] Address: [address] [place] [address] Performed By: #### 5 7021-8 #### [facility] CLIA [id number] [address] [place] [address] [place] Chloride [Moles/Vol] 97 mmol/L Low 98-107 [facility] Comment on above: Order Comment: Speci men Type: BLOOD SPECIMEN Ordering Facility: [facility] Address: [address] [place] [address] Performed By: #### 5 7021-8 #### [facility] CLIA [id number] [address] [place] [address] [place] CO2 [Moles/Vol] 21 mmol/L Low 22-30 [facility] Comment on above: Order Comment: Speci men Type: BLOOD SPECIMEN Ordering Facility: [facility] Address: [address] [place] [address] Performed By: #### 5 7021-8 #### [facility] [id number] [address] [place] [address] [place] Creatinine [Mass/Vol] 0.69 mg/dL Normal 0.58-0.96 [facility] Comment on above: Order Comment: Speci men Type: BLOOD SPECIMEN Ordering Facility: [facility] Address: [address] [place] [address] Performed By: #### 5 7021-8 #### [facility] [id number] [address] [place] [address] [place] Creatinine and Glomerular filtration rate.predicted panel (S/P/Bld) 86 mL/min/1.73m??? Normal >=60 [facility] Comment on above: Order Comment: Speci men Type: BLOOD SPECIMEN Ordering Facility: [facility] Address: [address] [id number] Result Comment: Kya mated Glomerular Filtration Rate [...] GFR. Performed By: #### 5 7021-8 #### [facility] CLIA [id number] [address] [place] [address] [place] Glucose [Mass/Vol] 358 mg/dL High 74-99 [facility] Comment on above: Order Comment: Dayron stinson Type: BLOOD SPECIMEN Ordering Facility: [facility] Address: [address] [place] [address] Result Comment: The [place] [employer] (ADA) provides guidance for cutoff [...] Standards of Medical Care in Diabetes 2016, [place] [employer]. Diabetes Care. 2016.39(Suppl 1). Performed By: #### 5 7021-8 #### [facility] CLIA [id number] [address] [place] [address] [place] Potassium [Moles/Vol] 4.3 mmol/L Normal 3.7-5.1 [facility] Comment on above: Order Comment: Dayron stinson Type: BLOOD SPECIMEN Ordering Facility: [facility] Address: [address] [id number] Performed By: #### 5 7021-8 #### [facility] CLIA [id number] [address] [place] [address] [place] Protein [Mass/Vol] 6.6 g/dL Normal 6.3-8.0 [facility] Comment on above: Order Comment: Speci men Type: BLOOD SPECIMEN Ordering Facility: [facility] Address: [address] [place] [address] Performed By: #### 5 7021-8 #### [facility] CLIA [id number] [address] [place] [address] [place] Sodium [Moles/Vol] 131 mmol/L Low 136-144 [facility] Comment on above: Order Comment: Speci men Type: BLOOD SPECIMEN Ordering Facility: [facility] Address: [address] [place] [address] Performed By: #### 5 7021-8 #### [facility] [id number] [address] [place] [address] [place] Urea nitrogen [Mass/Vol] 15 mg/dL Normal 7-21 [facility] Comment on above: Order Comment: Speci men Type: BLOOD SPECIMEN Ordering Facility: [facility] Address: [address] [place] [address] Performed By: #### 5 7021-8 #### [facility] CLIA [id number] [address] [place] [address] [place] ANES POSTPROC EVALon 025 ANES POSTPROC EVAL Normal [facility] CNPNon 01-26-2025 CNPN Telephone (FAMPWS) -- TELMA TINEO ([id number]) 1940 F Date Time Provider Department 01/26/25 [...] 10:49 AM Signed Henok Martinez MD [facility]str [facility] Pool2 minutes ago (10:40 AM) Any pain [...] AM Signed Henok Martinez MD [facility] [place] Pool4 minutes ago (10:52 AM) Try miralax [...] - Blood-Glucose Meter,Continuous (FREESTYLE TOLU 3 READER) [facility] [place] [place] Use to check blood sugar at least [...] once daily. - Blood Pressure Test Kit-Large (Pivot ARM BP MONITOR) 1 Each once daily. [...] 05/20/2023 Impaired cognition [R41.89] 05/20/2023 Diagnosed: 05/20/2023 intermediate current use of anticoagulant therapy *05/20/2023 Diagnosed: 05/20/2023 Neck pain [M54.2] 05/20/2023 07 (more content not included)... Normal [facility] Bilirub Conj SerPl-mCncon Bilirubin.conjugated [Mass/Vol] 1.9 mg/dL High <0.3 [facility] Comment on above: Order Comment: Speci men Type: BLOOD SPECIMENOrdering Facility: [facility] Address: [address] [place] [address] Performed By: #### 2 4323-8, 48987-2 ####[facility]ENT[facility] [id number] [place] [id number] [place] CBC W Auto Differential pane l (Bld)on 01-25-2025 Basophils (Bld) [#/Vol] 0.05 10*3/uL [facility] Basophils/100 WBC (Bld) 0.8 % [facility] Differential cell count method Nom (Bld) Auto [facility] Eosinophils (Bld) [#/Vol] 0.11 10*3/uL [facility] Eosinophils/100 WBC (Bld) 1.7 % [facility] Erythrocyte distribution width (RBC) [Ratio] 15.5 % High 11.5 - 15.0 % [facility] Hematocrit (Bld) [Volume fraction] 33.1 % Low 36.0 - 46.0 % [facility] Hemoglobin (Bld) [Mass/Vol] 10.8 g/dL Low 11.5 - 15.5 g/dL [facility] Immature granulocytes (Bld) [#/Vol] 0.04 10*3/uL [facility] Immature granulocytes/100 WBC (Bld) 0.6 % [facility] Interpretation and review of laboratory results Abnormal [facility] Lymphocytes (Bld) [#/Vol] 0.97 10*3/uL Low [facility] Lymphocytes/100 WBC (Bld) 14.7 % [facility] MCH (RBC) [Entitic mass] 30.9 pg 26.0 - 34.0 pg [facility] MCHC (RBC) [Mass/Vol] 32.6 g/dL 30.5 - 36.0 g/dL [facility] MCV (RBC) [Entitic vol] 94.8 fL 80.0 - 100.0 fL [facility] Monocytes (Bld) [#/Vol] 0.96 10*3/uL High [facility] Monocytes/100 WBC (Bld) 14.5 % [facility] Neutrophils (Bld) [#/Vol] 4.48 10*3/uL [facility] Neutrophils/100 WBC (Bld) 67.7 % [facility] Nucleated RBC (Bld) [#/Vol] [facility] Nucleated RBC/100 WBC (Bld) [Ratio] 0 % /100 WBC [facility] Platelet mean volume (Bld) [Entitic vol] 12.4 fL 9.0 - 12.7 fL [facility] Platelets (Bld) [#/Vol] 274 10*3/uL [facility] RBC (Bld) [#/Vol] 3.49 10*6/uL Low 3.90 - 5.2 0 m/uL [facility] WBC (Bld) [#/Vol] 6.61 10*3/uL [facility] Basophils (Bld) [#/Vol] 0.05 10*3/uL Normal <0.11 [facility] Comment on above: Order Comment: Speci men Type: BLOOD SPECIMEN Ordering Facility: [facility] Address: [address] [place] [address] Performed By: #### 5 7021-8 #### [facility] CLIA [id number] [address] [place] [address] [place] Basophils/100 WBC (Bld) 0.8 % Normal [facility] Comment on above: Order Comment: Speci men Type: BLOOD SPECIMEN Ordering Facility: [facility] Address: [address] [place] [address] Performed By: #### 5 7021-8 #### [facility] CLIA [id number] [address] [place] [address] [place] Differential cell count method Nom (Bld) Auto Normal [facility] Comment on above: Order Comment: Speci men Type: BLOOD SPECIMEN Ordering Facility: [facility] Address: [address] [place] [address] Performed By: #### 5 7021-8 #### [facility] CLIA [id number] [address] [place] [address] [place] Eosinophils (Bld) [#/Vol] 0.11 10*3/uL Normal <0.46 [facility] Comment on above: Order Comment: Speci men Type: BLOOD SPECIMEN Ordering Facility: [facility] Address: [address] [place] [address] Performed By: #### 5 7021-8 #### [facility] CLIA [id number] [address] [place] [address] [place] Eosinophils/100 WBC (Bld) 1.7 % Normal [facility] Comment on above: Order Comment: Speci men Type: BLOOD SPECIMEN Ordering Facility: [facility] Address: [address] [place] [address] Performed By: #### 5 7021-8 #### [facility] CLIA [id number] [address] [place] [address] [place] Erythrocyte distribution width (RBC) [Ratio] 15.5 % High 11.5-15.0 [facility] Comment on above: Order Comment: Speci men Type: BLOOD SPECIMEN Ordering Facility: [facility] Address: [address] [place] [address] Performed By: #### 5 7021-8 #### [facility] CLIA [id number] [address] [place] [address] [place] Hematocrit (Bld) [Volume fraction] 33.1 % Low 36.0-46.0 [facility] Comment on above: Order Comment: Speci men Type: BLOOD SPECIMEN Ordering Facility: [facility] Address: [address] [place] [address] Performed By: #### 5 7021-8 #### [facility] [id number] [address] [place] [address] [place] Hemoglobin (Bld) [Mass/Vol] 10.8 g/dL Low 11.5-15.5 [facility] Comment on above: Order Comment: Speci men Type: BLOOD SPECIMEN Ordering Facility: [facility] Address: [address] [place] [address] Performed By: #### 5 7021-8 #### [facility] [id number] [address] [place] [address] [place] Immature granulocytes (Bld) [#/Vol] 0.04 10*3/uL Normal <0.10 [facility] Comment on above: Order Comment: Speci men Type: BLOOD SPECIMEN Ordering Facility: [facility] Address: [address] [place] [address] Performed By: #### 5 7021-8 #### [facility] [id number] [address] [place] [address] [place] Immature granulocytes/100 WBC (Bld) 0.6 % Normal [facility] Comment on above: Order Comment: Speci men Type: BLOOD SPECIMEN Ordering Facility: [facility] Address: [address] [place] [address] Performed By: #### 5 7021-8 #### [facility] CLIA [id number] [address] [place] [address] [place] Lymphocytes (Bld) [#/Vol] 0.97 10*3/uL Low 1.00-4.00 [facility] Comment on above: Order Comment: Speci men Type: BLOOD SPECIMEN Ordering Facility: [facility] Address: [address] [place] [address] Performed By: #### 5 7021-8 #### [facility] [id number] [address] [place] [address] [place] Lymphocytes/100 WBC (Bld) 14.7 % Normal [facility] Comment on above: Order Comment: Speci men Type: BLOOD SPECIMEN Ordering Facility: [facility] Address: [address] [place] [address] Performed By: #### 5 7021-8 #### [facility] [id number] [address] [place] [address] [place] MCH (RBC) [Entitic mass] 30.9 pg Normal 26.0-34.0 [facility] Comment on above: Order Comment: Speci men Type: BLOOD SPECIMEN Ordering Facility: [facility] Address: [address] [place] [address] Performed By: #### 5 7021-8 #### [facility] CLIA [id number] [address] [place] [address] [place] MCHC (RBC) [Mass/Vol] 32.6 g/dL Normal 30.5-36.0 [facility] Comment on above: Order Comment: Speci men Type: BLOOD SPECIMEN Ordering Facility: [facility] Address: [address] [place] [address] Performed By: #### 5 7021-8 #### [facility] CLIA [id number] [address] [place] [address] [place] MCV (RBC) [Entitic vol] 94.8 fL Normal 80.0-100.0 [facility] Comment on above: Order Comment: Speci men Type: BLOOD SPECIMEN Ordering Facility: [facility] Address: [facility] [place] [address] Performed By: #### 5 7021-8 #### [facility] CLIA [id number] [address] [place] [address] [place] Monocytes (Bld) [#/Vol] 0.96 10*3/uL High <0.87 [facility] Comment on above: Order Comment: Speci men Type: BLOOD SPECIMEN Ordering Facility: [facility] Address: [address] [place], [place] [id number] Performed By: #### 5 7021-8 #### [facility] CLIA [id number] [address] [place] [address] [place] Monocytes/100 WBC (Bld) 14.5 % Normal [facility] Comment on above: Order Comment: Speci men Type: BLOOD SPECIMEN Ordering Facility: [facility] Address: [address] [place] [address] Performed By: #### 5 7021-8 #### [facility] CLIA [id number] [address] [place] [address] [place] Neutrophils (Bld) [#/Vol] 4.48 10*3/uL Normal 1.45-7.50 [facility] Comment on above: Order Comment: Speci men Type: BLOOD SPECIMEN Ordering Facility: [facility] Address: [address] [place] [address] Performed By: #### 5 7021-8 #### [facility] CLIA [id number] [address] [place] [address] [place] Neutrophils/100 WBC (Bld) 67.7 % Normal [facility] Comment on above: Order Comment: Speci men Type: BLOOD SPECIMEN Ordering Facility: [facility] Address: [address] [place] [address] Performed By: #### 5 7021-8 #### [facility] CLIA [id number] [address] [place] [address] [place] Nucleated RBC (Bld) [#/Vol] 10*3/uL Normal <0.01 [facility] Comment on above: Order Comment: Speci men Type: BLOOD SPECIMEN Ordering Facility: [facility] Address: [address] [place] [address] Performed By: #### 5 7021-8 #### [facility] CLIA [id number] [address] [place] [address] [place] Nucleated RBC/100 WBC (Bld) [Ratio] 0.0 /100 WBC Normal [facility] Comment on above: Order Comment: Speci men Type: BLOOD SPECIMEN Ordering Facility: [facility] Address: [address] [place] [address] Performed By: #### 5 7021-8 #### [facility] CLIA [id number] [address] [place] [address] [place] Platelet mean volume (Bld) [Entitic vol] 12.4 fL Normal 9.0-12.7 [facility] Comment on above: Order Comment: Speci men Type: BLOOD SPECIMEN Ordering Facility: [facility] Address: [address] [place] [address] Performed By: #### 5 7021-8 #### [facility] CLIA [id number] [address] [place] [address] [place] Platelets (Bld) [#/Vol] 274 10*3/uL Normal 150-400 [facility] Comment on above: Order Comment: Speci men Type: BLOOD SPECIMEN Ordering Facility: [facility] Address: [address] [place], [place] [address] Performed By: #### 5 7021-8 #### [facility]ENTERIA [id number] [address] [place] [address] [place] RBC (Bld) [#/Vol] 3.49 10*6/uL Low 3.90-5.20 [facility] Comment on above: Order Comment: Speci men Type: BLOOD SPECIMEN Ordering Facility: [facility] Address: [address] [place] [address] Performed By: #### 5 7021-8 #### [facility] CENTERIA [id number] [address] [place] [address] [place] WBC (Bld) [#/Vol] 6.61 10*3/uL Normal 3.70-11.00 [facility] Comment on above: Order Comment: Speci men Type: BLOOD SPECIMEN Ordering Facility: [facility] Address: [address] [place], [place] [address] Performed By: #### 5 7021-8 #### [facility]ENTERIA [id number] [address] [place] [address] [place] CNOVSPon 01-25-2025 CNOVS Visit (SP) Office (H EMAWS) -- TELMA TINEO ([id number]) 1940 F Date Time Provider Department 01/25/25 [...] presented with painless jaundice, admitted initially at [facility], transferred for further work up at [facility]. Saw hepatobiliary surgery there, noted pancreatic mass. [...] Yes Blood-Glucose Meter,Continuous (FREESTYLE TOLU 3 READER) [facility] [place] Use to check blood sugar at least [...] SYSTEMS: GE (more content not included)... Normal [facility] Lenin 01-25-2025 IMMANUEL Telephone (HEMMARY) -- TELMA TINEO ([id number]) 1940 F Date Time Provider Department 01/25/25 [...] Fully Assessed Reason for Visit: Care Coordination [5231] Cmt: Introduction Prescriptions as of 01/25/2025 - [...] - Blood-Glucose Meter,Continuous (FREESTYLE TOLU 3 READER) [facility] [place] Use to check blood sugar at least [...] once daily. - Blood Pressure Test Kit-Large (Pivot ARM BP MONITOR) 1 Each once daily. [...] 05/20/2023 Impaired cognition [R41.89] 05/20/2023 Diagnosed: 05/20/2023 intermediate current use of anticoagulant therapy *05/20/2023 Diagnosed: [...] Status:Closed by MARIA ISABEL SILVERIO on 01/25/25 [facility] Telephone (LUKE) -- TELMA TINEO ([id number]) 1940 F Date Time Provider Department 01/25/25 JUAN MIGUEL YUSUF During your visit today, we recorded the following information about you: Rachel Bañuelos 01/25/2025 9:15 AM Signed Labs today-DONE Chemo Education-SCHEDULED 01/27 Start Nolan/Abraxane, straight back to start with CBC (3wks [...] - Blood-Glucose Meter,Continuous (FREESTYLE TOLU 3 READER) [facility] [place] Use to check blood sugar at least [...] once daily. - Blood Pressure Test Kit-Large (Pivot ARM BP MONITOR) 1 Each once daily. [...] 05/20/2023 Impaired cognition [R41.89] 05/20/2023 Diagnosed: 05/20/2023 intermediate current use of anticoagulant therapy *05/20/2023 Diagnosed: [...] Status:Closed by RACHEL BAÑUELOS on 01/25/25 Normal [facility] Comprehensive metabolic 2000 panelOrdered By: Angelia Paez on 01-25-2025 Albumin [Mass/Vol] 3.8 g/dL Low 3.9 - 4.9 g/dL [facility] ALP [Catalytic activity/Vol] 170 U/L High 34 - 123 U/L [facility] ALT [Catalytic activity/Vol] 37 U/L 7 - 38 U/L [facility] Anion gap [Moles/Vol] 10 mmol/L 8 - 15 mmol/L [facility] AST [Catalytic activity/Vol] 28 U/L 13 - 35 U/L [facility] Bilirubin [Mass/Vol] 2.6 mg/dL High 0.2 - 1 .3 mg/dL [facility] Calcium [Mass/Vol] 9.4 mg/dL 8.5 - 10. 2 mg/dL [facility] Chloride [Moles/Vol] 101 mmol/L 98 - 10 7 mmol/L [facility] CO2 [Moles/Vol] 21 mmol/L Low 22 - 30 mmol/L [facility] Creatinine [Mass/Vol] 0.58 mg/dL 0.58 - 0.96 mg/dL [facility] GFR/1.73 sq M.predicted among non-blacks MDRD (S/P/Bld) [Vol rate/Area] 89 mL/min/{1.73_m2} - PINF [facility] Comment on above: Estimated Glomerular Filtration Rate [...] 325 mg/dL High 74 - 99 mg/dL [facility] Comment on above: The [place] Diabete s Association (ADA) provides guidance for [...] Standards of Medical Care in Diabetes 2016, [place] [employer] Association. Diabetes Care. 2016.39(Suppl 1). Interpretation and review of laboratory results Abnormal [facility] Potassium [Moles/Vol] 4.5 mmol/L 3.7 - 5.1 mmol/L [facility] Protein [Mass/Vol] 6.9 g/dL 6.3 - 8.0 g/dL [facility] Sodium [Moles/Vol] 132 mmol/L Low 136 - 144 mmol/L [facility] Urea nitrogen [Mass/Vol] 11 mg/dL 7 - 21 mg/dL [facility] Comprehensive metabolic 2000 panelon 01-25-2025 Albumin [Mass/Vol] 3.8 g/dL Low 3.9-4.9 [facility] Comment on above: Order Comment: Speci men Type: BLOOD SPECIMENOrdering Facility: [facility] Address: [address] [place] [address] Performed By: #### 2 4323-8, 74867-6 ####[facility] MILLTOWSANDRALIA [id number] [place] [address] [place] ALP [Catalytic activity/Vol] 170 U/L High 34-123 [facility] Comment on above: Order Comment: Speci men Type: BLOOD SPECIMENOrdering Facility: [facility] Address: [address] [place] [address] Performed By: #### 2 4323-8, 31745-4 ####[facility]ENTERWSANDRALIA [id number] [place] [address] [place] ALT [Catalytic activity/Vol] 37 U/L Normal 7-38 [facility] Comment on above: Order Comment: Speci men Type: BLOOD SPECIMENOrdering Facility: [facility] Address: [address] [place] [address] Performed By: #### 2 4323-8, 67489-2 ####[facility] H[facility]ALSANDRALIA [id number] [place] [address] [place] Anion gap [Moles/Vol] 10 mmol/L Normal 8-15 [facility] Comment on above: Order Comment: Speci men Type: BLOOD SPECIMENOrdering Facility: [facility] Address: [address] [place] [address] Performed By: #### 2 4323-8, 50360-1 ####[facility] CENTERWNCLIA [id number] [place] [address] [place] AST [Catalytic activity/Vol] 28 U/L Normal 13-35 [facility] Comment on above: Order Comment: Speci men Type: BLOOD SPECIMENOrdering Facility: [facility] Address: [address] [place], [place] [address] Performed By: #### 2 4323-8, 26266-0 ####[facility]ITALLIA [id number] [place] [address] [place] Bilirubin [Mass/Vol] 2.6 mg/dL High 0.2-1.3 [facility] Comment on above: Order Comment: Speci men Type: BLOOD SPECIMENOrdering Facility: [facility] Address: [address] [place] [address] Performed By: #### 2 4323-8, 87491-7 ####[facility] HOSPITALNCKush [id number] [place] [address] [place] Calcium [Mass/Vol] 9.4 mg/dL Normal 8.5-10.2 [facility] Comment on above: Order Comment: Speci men Type: BLOOD SPECIMENOrdering Facility: [facility] Address: [address] [place] [address] Performed By: #### 2 4323-8, 50931-0 ####[facility] HOSPITALMURIELA [id number] [place] [address] [place] Chloride [Moles/Vol] 101 mmol/L Normal 98-107 [facility] Comment on above: Order Comment: Speci men Type: BLOOD SPECIMENOrdering Facility: [facility] Address: [address] [place] [address] Performed By: #### 2 4323-8, 52770-0 ####[facility]ITALLIA [id number] [place] [address] [place] CO2 [Moles/Vol] 21 mmol/L Low 22-30 [facility] Comment on above: Order Comment: Speci men Type: BLOOD SPECIMENOrdering Facility: [facility] Address: [address] [place] [address] Performed By: #### 2 4323-8, 48559-0 ####[facility] REJI KHLOECOLUMBUSNCLIA [id number] [place] [address] [place] Creatinine [Mass/Vol] 0.58 mg/dL Normal 0.58-0.96 [facility] Comment on above: Order Comment: Speci men Type: BLOOD SPECIMENOrdering Facility: [facility] Address: [address] [place] [address] Performed By: #### 2 4323-8, 59635-5 ####[facility] HOSPITALNCLIA [id number] [place] [address] [place] Creatinine and Glomerular filtration rate.predicted panel (S/P/Bld) 89 mL/min/1.73m??? Normal >=60 [facility] Comment on above: Order Comment: Speci men Type: BLOOD SPECIMENOrdering Facility: [facility] Address: [address] [place] [address] Result Comment: Kya mated Glomerular Filtration Rate [...] actual GFR. Performed By: #### 2 4323-8, 72841-9 ####[facility] HOSPITALNCLIA [id number] [place] [address] [place] Glucose [Mass/Vol] 325 mg/dL High 74-99 [facility] Comment on above: Order Comment: Speci men Type: BLOOD SPECIMENOrdering Facility: [facility] Address: [address] [place] [address] Result Comment: The [place] Diabetes Association (ADA) provides guidance for cutoff [...] Standards of Medical Care in Diabetes 2016, [place] Diabetes Association. Diabetes Care. 2016.39(Suppl 1). Performed By: #### 2 4323-8, 56459-9 ####[facility] HOSPITALEULA [id number] [place] [address] [place] Potassium [Moles/Vol] 4.5 mmol/L Normal 3.7-5.1 [facility] Comment on above: Order Comment: Speci men Type: BLOOD SPECIMENOrdering Facility: [facility] Address: [address] [place] [address] Performed By: #### 2 4323-8, 10040-8 ####[facility] HOSPITALCHRISTA [id number] [place] [address] [place] Protein [Mass/Vol] 6.9 g/dL Normal 6.3-8.0 [facility] Comment on above: Order Comment: Speci men Type: BLOOD SPECIMENOrdering Facility: [facility] Address: [address] [place] [address] Performed By: #### 2 4323-8, 52244-7 ####[facility] HOSPITALCHRISTA [id number] [place] [address] [place] Sodium [Moles/Vol] 132 mmol/L Low 136-144 [facility] Comment on above: Order Comment: Speci men Type: BLOOD SPECIMENOrdering Facility: [facility] Address: [address] [place] [address] Performed By: #### 2 4323-8, 78944-5 ####[facility] REJI LEDBETTERTOWNCLIA [id number] [address] [place] Urea nitrogen [Mass/Vol] 11 mg/dL Normal 7-21 [facility] Comment on above: Order Comment: Speci men Type: BLOOD SPECIMENOrdering Facility: [facility] Address: [facility] [place] [address] Performed By: #### 2 4323-8, 97415-2 ####[facility] REJI LEDBETTERTOWNCLIA [id number] [address] OF [facility] CNPNon 01-24-2025 CNPN Telephone (LUKE) -- TELMA TINEO ([id number]) 1940 F Date Time Provider Department 01/24/25 [...] once daily. - Blood Pressure Test Kit-Large (Pivot ARM BP MONITOR) 1 Each once daily. [...] 05/20/2023 Impaired cognition [R41.89] 05/20/2023 Diagnosed: 05/20/2023 intermediate current use of anticoagulant therapy *05/20/2023 Diagnosed: [...] Status:Closed by NASIM FRAGOSO on 01/25/25 Normal [facility] CBC W Auto Differential pane l (Bld)on 01-23-2025 Basophils (Bld) [#/Vol] 10*3/uL Normal <0.11 [facility] Comment on above: Order Comment: Speci men Type: BLOOD SPECIMENOrdering Facility: [facility] Address: [address] [place] [address] Performed By: #### 5 7021-8 ####[facility] LABORATORYCLIA [id number] [place] [address] [place] Basophils/100 WBC (Bld) 0.2 % Normal [facility] Comment on above: Order Comment: Speci men Type: BLOOD SPECIMENOrdering Facility: [facility] Address: [address] [place] [address] Performed By: #### 5 7021-8 ####[facility] LABORATORYCLIA [id number] [address] Differential cell count method Nom (Bld) Auto Normal [facility] Comment on above: Order Comment: Speci men Type: BLOOD SPECIMENOrdering Facility: [facility] Address: [address] [place] [address] Performed By: #### 5 7021-8 ####[facility] LABORATORYCLIA [id number] [address] Eosinophils (Bld) [#/Vol] 0.12 10*3/uL Normal <0.46 [facility] Comment on above: Order Comment: Speci men Type: BLOOD SPECIMENOrdering Facility: [facility] Address: [address] [place] [address] Performed By: #### 5 7021-8 ####[facility] LABORATORYCLIA [id number] [address] Eosinophils/100 WBC (Bld) 1.1 % Normal [facility] Comment on above: Order Comment: Speci men Type: BLOOD SPECIMENOrdering Facility: [facility] Address: [address] [place] [address] Performed By: #### 5 7021-8 ####[facility] LABORATORYCLIA [id number] [address] Erythrocyte distribution width (RBC) [Ratio] 15.7 % High 11.5-15.0 [facility] Comment on above: Order Comment: Speci men Type: BLOOD SPECIMENOrdering Facility: [facility] Address: [address] [place] [address] Performed By: #### 5 7021-8 ####[facility] LABORATORYCLIA [id number] [place] [address] [place] Hematocrit (Bld) [Volume fraction] 28.7 % Low 36.0-46.0 [facility] Comment on above: Order Comment: Speci men Type: BLOOD SPECIMENOrdering Facility: [facility] Address: [address] [place] [address] Performed By: #### 5 7021-8 ####[facility] LABORATORYCLIA [id number] [place] [address] [place] Hemoglobin (Bld) [Mass/Vol] 9.2 g/dL Low 11.5-15.5 [facility] Comment on above: Order Comment: Speci men Type: BLOOD SPECIMENOrdering Facility: [facility] Address: [address] [place] [address] Performed By: #### 5 7021-8 ####[facility] LABORATORYCLIA [id number] [address] [place] Immature granulocytes (Bld) [#/Vol] 0.06 10*3/uL Normal <0.10 [facility] Comment on above: Order Comment: Speci men Type: BLOOD SPECIMENOrdering Facility: [facility] Address: [address] [place] [address] Performed By: #### 5 7021-8 ####[facility] LABORATORYCLIA [id number] [address] [place] Immature granulocytes/100 WBC (Bld) 0.6 % Normal [facility] Comment on above: Order Comment: Speci men Type: BLOOD SPECIMENOrdering Facility: [facility] Address: [address] [place] [address] Performed By: #### 5 7021-8 ####[facility] LABORATORYCLIA [id number] [place] [address] [place] Lymphocytes (Bld) [#/Vol] 0.97 10*3/uL Low 1.00-4.00 [facility] Comment on above: Order Comment: Speci men Type: BLOOD SPECIMENOrdering Facility: [facility] Address: [address] [place] [address] Performed By: #### 5 7021-8 ####[facility] LABORATORYCLIA [id number] [address] [facility] Lymphocytes/100 WBC (Bld) 9.0 % Normal [facility] Comment on above: Order Comment: Speci men Type: BLOOD SPECIMENOrdering Facility: [facility] Address: [address] [place] [address] Performed By: #### 5 7021-8 ####[facility] LABORATORYCLIA [id number] [address] MCH (RBC) [Entitic mass] 30.9 pg Normal 26.0-34.0 [facility] Comment on above: Order Comment: Speci men Type: BLOOD SPECIMENOrdering Facility: [facility] Address: [address] [place] [address] Performed By: #### 5 7021-8 ####[facility] LABORATORYCLIA [id number] [address] MCHC (RBC) [Mass/Vol] 32.1 g/dL Normal 30.5-36.0 [facility] Comment on above: Order Comment: Speci men Type: BLOOD SPECIMENOrdering Facility: [facility] Address: [address] [place] [address] Performed By: #### 5 7021-8 ####[facility] LABORATORYCLIA [id number] [address] [facility] MCV (RBC) [Entitic vol] 96.3 fL Normal 80.0-100.0 [facility] Comment on above: Order Comment: Speci men Type: BLOOD SPECIMENOrdering Facility: [facility] Address: [address] [place] [address] Performed By: #### 5 7021-8 ####[facility] LABORATORYCLIA [id number] [address] Monocytes (Bld) [#/Vol] 1.23 10*3/uL High <0.87 [facility] Comment on above: Order Comment: Speci men Type: BLOOD SPECIMENOrdering Facility: [facility] Address: [address] [place] [address] Performed By: #### 5 7021-8 ####[facility]ORATORYCLIA [id number] [address] [place] Monocytes/100 WBC (Bld) 11.5 % Normal [facility] Comment on above: Order Comment: Speci men Type: BLOOD SPECIMENOrdering Facility: [facility] Address: [facility] [place] [address] Performed By: #### 5 7021-8 ####[facility]ORATORYCLIA [id number] [place] [address] [place] Neutrophils (Bld) [#/Vol] 8.33 10*3/uL High 1.45-7.50 [facility] Comment on above: Order Comment: Speci men Type: BLOOD SPECIMENOrdering Facility: [facility] Address: [address] [place] [address] Performed By: #### 5 7021-8 ####[facility]ORATORYCLIA [id number] [address] [place] Neutrophils/100 WBC (Bld) 77.6 % Normal [facility] Comment on above: Order Comment: Speci men Type: BLOOD SPECIMENOrdering Facility: [facility] Address: [address] [place] [address] Performed By: #### 5 7021-8 ####[facility]ORATORYCLIA [id number] [place] [address] [place] Nucleated RBC (Bld) [#/Vol] 10*3/uL Normal <0.01 [facility] Comment on above: Order Comment: Speci men Type: BLOOD SPECIMENOrdering Facility: [facility] Address: [address] [place] [address] Performed By: #### 5 7021-8 ####[facility]ORATORYCLIA [id number] [place] [address] [place] Nucleated RBC/100 WBC (Bld) [Ratio] 0.0 /100 WBC Normal [facility] Comment on above: Order Comment: Speci men Type: BLOOD SPECIMENOrdering Facility: [facility] Address: [address] [place] [address] Performed By: #### 5 7021-8 ####[facility] LABORATORYCLIA [id number] [place] [address] [place] Platelet mean volume (Bld) [Entitic vol] 12.9 fL High 9.0-12.7 [facility] Comment on above: Order Comment: Speci men Type: BLOOD SPECIMENOrdering Facility: [facility] Address: [address] [place] [address] Performed By: #### 5 7021-8 ####[facility] LABORATORYCLIA [id number] [address] [place] Platelets (Bld) [#/Vol] 237 10*3/uL Normal 150-400 [facility] Comment on above: Order Comment: Speci men Type: BLOOD SPECIMENOrdering Facility: [facility] Address: [address] [place] [address] Performed By: #### 5 7021-8 ####[facility] LABORATORYCLIA [id number] [place] [address] [place] RBC (Bld) [#/Vol] 2.98 10*6/uL Low 3.90-5.20 [facility] Comment on above: Order Comment: Speci men Type: BLOOD SPECIMENOrdering Facility: [facility] Address: [address] [place] [address] Performed By: #### 5 7021-8 ####[facility] LABORATORYCLIA [id number] [address] [place] WBC (Bld) [#/Vol] 10.73 10*3/uL Normal 3.70-11.00 [facility] Comment on above: Order Comment: Speci men Type: BLOOD SPECIMENOrdering Facility: [facility] Address: [address] [place] [address] Performed By: #### 5 7021-8 ####[facility] LABORATORYCLIA [id number] [address] [place] CNDSon 01-23-2025 CNDS Normal [facility] Hepatic function 2000 panelo n 01-23-2025 Albumin [Mass/Vol] 3.4 g/dL Low 3.9-4.9 [facility] Comment on above: Order Comment: Speci men Type: BLOOD SPECIMENOrdering Facility: [facility] Address: [address] [place] [address] Performed By: #### 2 4325-3 ####[facility] LABORATORYCLIA [id number] [place] [address] [place] ALP [Catalytic activity/Vol] 155 U/L High 34-123 [facility] Comment on above: Order Comment: Speci men Type: BLOOD SPECIMENOrdering Facility: [facility] Address: [address] [place] [address] Performed By: #### 2 4325-3 ####[facility] LABORATORYCLIA [id number] [address] [place] ALT With P-5'-P [Catalytic activity/Vol] 46 U/L High 7-38 [facility] Comment on above: Order Comment: Speci men Type: BLOOD SPECIMENOrdering Facility: [facility] Address: [address] [place] [address] Performed By: #### 2 4325-3 ####[facility] LABORATORYCLIA [id number] [address] [place] AST With P-5'-P [Catalytic activity/Vol] 39 U/L High 13-35 [facility] Comment on above: Order Comment: Speci men Type: BLOOD SPECIMENOrdering Facility: [facility] Address: [address] [place] [address] Performed By: #### 2 4325-3 ####[facility] LABORATORYCLIA [id number] [place] [address] [place] Bilirubin [Mass/Vol] 2.5 mg/dL High 0.2-1.3 [facility] Comment on above: Order Comment: Speci men Type: BLOOD SPECIMENOrdering Facility: [facility] Address: [address] [place] [address] Performed By: #### 2 4325-3 ####[facility] LABORATORYCLIA [id number] [place] [address] [place] Bilirubin.conjugated [Mass/Vol] 1.9 mg/dL High <0.3 [facility] Comment on above: Order Comment: Speci men Type: BLOOD SPECIMENOrdering Facility: [facility] Address: [address] [place] [address] Performed By: #### 2 4325-3 ####[facility] LABORATORYCLIA [id number] [address] [place] Protein [Mass/Vol] 5.8 g/dL Low 6.3-8.0 [facility] Comment on above: Order Comment: Speci men Type: BLOOD SPECIMENOrdering Facility: [facility] Address: [address] [place] [address] Performed By: #### 2 4325-3 ####[facility] LABORATORYCLIA [id number] [address] [place] ANES PRE-OPon 01-22-2025 ANES PRE-OP Normal [facility] CASE MANAGEMon 01-22-2025 CASE MANAGEM Normal [facility] CBC panel Auto (Bld)on 01-22 Erythrocyte distribution width (RBC) [Ratio] 15.9 % High 11.5-15.0 [facility] Comment on above: Order Comment: Speci men Type: BLOOD SPECIMENOrdering Facility: [facility] Address: [address] [place] [address] Performed By: #### 5 8410-2 ####[facility] LABORATORYCLIA [id number] [address] [place] Hematocrit (Bld) [Volume fraction] 28.8 % Low 36.0-46.0 [facility] Comment on above: Order Comment: Speci men Type: BLOOD SPECIMENOrdering Facility: [facility] Address: [address] [place] [address] Performed By: #### 5 8410-2 ####[facility] LABORATORYCLIA [id number] [address] Hemoglobin (Bld) [Mass/Vol] 9.3 g/dL Low 11.5-15.5 [facility] Comment on above: Order Comment: Speci men Type: BLOOD SPECIMENOrdering Facility: [facility] Address: [address] [place] [address] Performed By: #### 5 8410-2 ####[facility] LABORATORYCLIA [id number] [address] OF [facility] MCH (RBC) [Entitic mass] 31.1 pg Normal 26.0-34.0 [facility] Comment on above: Order Comment: Speci men Type: BLOOD SPECIMENOrdering Facility: [facility] Address: [address] [place] [address] Performed By: #### 5 8410-2 ####[facility] LABORATORYCLIA [id number] [address] MCHC (RBC) [Mass/Vol] 32.3 g/dL Normal 30.5-36.0 [facility] Comment on above: Order Comment: Speci men Type: BLOOD SPECIMENOrdering Facility: [facility] Address: [address] [place] [address] Performed By: #### 5 8410-2 ####[facility] LABORATORYCLIA [id number] [address] [facility] MCV (RBC) [Entitic vol] 96.3 fL Normal 80.0-100.0 [facility] Comment on above: Order Comment: Speci men Type: BLOOD SPECIMENOrdering Facility: [facility] Address: [address] [place] [address] Performed By: #### 5 8410-2 ####[facility] LABORATORYCLIA [id number] [address] OF [facility] Nucleated RBC (Bld) [#/Vol] 10*3/uL Normal <0.01 [facility] Comment on above: Order Comment: Speci men Type: BLOOD SPECIMENOrdering Facility: [facility] Address: [address] [place] [address] Performed By: #### 5 8410-2 ####[facility] LABORATORYCLIA [id number] [place] [address] [place] Platelet mean volume (Bld) [Entitic vol] 13.0 fL High 9.0-12.7 [facility] Comment on above: Order Comment: Speci men Type: BLOOD SPECIMENOrdering Facility: [facility] Address: [address] [place] [address] Performed By: #### 5 8410-2 ####[facility] LABORATORYCLIA [id number] [place] [address] [place] Platelets (Bld) [#/Vol] 254 10*3/uL Normal 150-400 [facility] Comment on above: Order Comment: Speci men Type: BLOOD SPECIMENOrdering Facility: [facility] Address: [address] [place] [address] Performed By: #### 5 8410-2 ####[facility] LABORATORYCLIA [id number] [place] [address] [place] RBC (Bld) [#/Vol] 2.99 10*6/uL Low 3.90-5.20 [facility] Comment on above: Order Comment: Speci men Type: BLOOD SPECIMENOrdering Facility: [facility] Address: [address] [place] [address] Performed By: #### 5 8410-2 ####[facility] LABORATORYCLIA [id number] [place] [address] [place] WBC (Bld) [#/Vol] 6.28 10*3/uL Normal 3.70-11.00 [facility] Comment on above: Order Comment: Speci men Type: BLOOD SPECIMENOrdering Facility: [facility] Address: [address] [place] [address] Performed By: #### 5 8410-2 ####[facility] LABORATORYCLIA [id number] [place] [address] [place] CONSULT PROGon 01-22-2025 CONSULT PROG Normal [facility] Comprehensive metabolic 2000 panelon 01-22-2025 Albumin [Mass/Vol] 3.4 g/dL Low 3.9-4.9 [facility] Comment on above: Order Comment: Speci men Type: BLOOD SPECIMENOrdering Facility: [facility] Address: [address] [place] [address] Performed By: #### 2 4323-8 ####[facility] LABORATORYCLIA [id number] [place] [address] [place] ALP [Catalytic activity/Vol] 161 U/L High 34-123 [facility] Comment on above: Order Comment: Speci men Type: BLOOD SPECIMENOrdering Facility: [facility] Address: [address] [place] [address] Performed By: #### 2 4323-8 ####[facility] LABORATORYCLIA [id number] [address] [place] ALT With P-5'-P [Catalytic activity/Vol] 48 U/L High 7-38 [facility] Comment on above: Order Comment: Speci men Type: BLOOD SPECIMENOrdering Facility: [facility] Address: [address] [place] [address] Performed By: #### 2 4323-8 ####[facility] LABORATORYCLIA [id number] [address] [place] Anion gap [Moles/Vol] 10 mmol/L Normal 8-15 [facility] Comment on above: Order Comment: Speci men Type: BLOOD SPECIMENOrdering Facility: [facility] Address: [address] [place] [address] Performed By: #### 2 4323-8 ####[facility] LABORATORYCLIA [id number] [place] [address] [place] AST With P-5'-P [Catalytic activity/Vol] 39 U/L High 13-35 [facility] Comment on above: Order Comment: Speci men Type: BLOOD SPECIMENOrdering Facility: [facility] Address: [address] [place] [address] Performed By: #### 2 4323-8 ####[facility] LABORATORYCLIA [id number] [place] [address] [place] Bilirubin [Mass/Vol] 2.5 mg/dL High 0.2-1.3 [facility] Comment on above: Order Comment: Speci men Type: BLOOD SPECIMENOrdering Facility: [facility] Address: [address] [place] [address] Performed By: #### 2 4323-8 ####[facility] LABORATORYCLIA [id number] [place] [address] [place] Calcium [Mass/Vol] 9.1 mg/dL Normal 8.5-10.2 [facility] Comment on above: Order Comment: Speci men Type: BLOOD SPECIMENOrdering Facility: [facility] Address: [address] [place] [address] Performed By: #### 2 4323-8 ####[facility] LABORATORYCLIA [id number] [place] [address] [place] Chloride [Moles/Vol] 104 mmol/L Normal 98-107 [facility] Comment on above: Order Comment: Speci men Type: BLOOD SPECIMENOrdering Facility: [facility] Address: [address] [place] [address] Performed By: #### 2 4323-8 ####[facility] LABORATORYCLIA [id number] [place] [address] [place] CO2 [Moles/Vol] 23 mmol/L Normal 22-30 [facility] Comment on above: Order Comment: Speci men Type: BLOOD SPECIMENOrdering Facility: [facility] Address: [address] [place] [address] Performed By: #### 2 4323-8 ####[facility] LABORATORYCLIA [id number] [place] [address] [place] Creatinine [Mass/Vol] 0.69 mg/dL Normal 0.58-0.96 [facility] Comment on above: Order Comment: Dayron stinson Type: BLOOD SPECIMENOrdering Facility: [facility] Address: [address] [place] [address] Performed By: #### 2 4323-8 ####[facility] LABORATORYCLIA [id number] [place] [address] [place] Creatinine and Glomerular filtration rate.predicted panel (S/P/Bld) 86 mL/min/1.73m??? Normal >=60 [facility] Comment on above: Order Comment: Dayron stinson Type: BLOOD SPECIMENOrdering Facility: [facility] Address: [address] [place] [address] Result Comment: Kya mated Glomerular Filtration Rate [...] actual GFR. Performed By: #### 2 4323-8 ####[facility] LABORATORYCLIA [id number] [place] [address] [place] Glucose [Mass/Vol] 171 mg/dL High 74-99 [facility] Comment on above: Order Comment: Dayron shantell Type: BLOOD SPECIMENOrdering Facility: [facility] Address: [address] [place] [address] Result Comment: The [place] [employer] (ADA) provides guidance for cutoff [...] Standards of Medical Care in Diabetes 2016, [place] [employer]. Diabetes Care. 2016.39(Suppl 1). Performed By: #### 2 4323-8 ####[facility] LABORATORYCLIA [id number] [address] [place] Potassium [Moles/Vol] 4.3 mmol/L Normal 3.7-5.1 [facility] Comment on above: Order Comment: Speci men Type: BLOOD SPECIMENOrdering Facility: [facility] Address: [address] [place] [address] Performed By: #### 2 4323-8 ####[facility] LABORATORYCLIA [id number] [place] [address] [place] Protein [Mass/Vol] 5.7 g/dL Low 6.3-8.0 [facility] Comment on above: Order Comment: Speci men Type: BLOOD SPECIMENOrdering Facility: [facility] Address: [address] [place] [address] Performed By: #### 2 4323-8 ####[facility] LABORATORYCLIA [id number] [address] STATES OF [facility] Sodium [Moles/Vol] 137 mmol/L Normal 136-144 [facility] Comment on above: Order Comment: Speci men Type: BLOOD SPECIMENOrdering Facility: [facility] Address: [address] [place] [address] Performed By: #### 2 4323-8 ####[facility] LABORATORYCLIA [id number] [address] [place] Urea nitrogen [Mass/Vol] 11 mg/dL Normal 7-21 [facility] Comment on above: Order Comment: Speci men Type: BLOOD SPECIMENOrdering Facility: [facility] Address: [address] [place] [address] Performed By: #### 2 4323-8 ####[facility] LABORATORYCLIA [id number] [address] [place] NURSING PROGon 01-22-2025 NURSING PROG Normal [facility] NUTRITIONon 01-22-2025 NUTRITION Normal [facility] Upper GI endoscopyon 025 Upper GI endoscopy Normal [facility] CBC panel Auto (Bld)on 01-21 Erythrocyte distribution width (RBC) [Ratio] 15.7 % High 11.5-15.0 [facility] Comment on above: Order Comment: Speci men Type: BLOOD SPECIMENOrdering Facility: [facility] Address: [address] [place] [address] Performed By: #### 5 8410-2 ####[facility] LABORATORYCLIA [id number] [address] Hematocrit (Bld) [Volume fraction] 27.9 % Low 36.0-46.0 [facility] Comment on above: Order Comment: Speci men Type: BLOOD SPECIMENOrdering Facility: [facility] Address: [address] [place] [address] Performed By: #### 5 8410-2 ####[facility] LABORATORYCLIA [id number] [address] OF [facility] Hemoglobin (Bld) [Mass/Vol] 9.2 g/dL Low 11.5-15.5 [facility] Comment on above: Order Comment: Speci men Type: BLOOD SPECIMENOrdering Facility: [facility] Address: [address] [place] [address] Performed By: #### 5 8410-2 ####[facility] LABORATORYCLIA [id number] [address] STATES OF [facility] MCH (RBC) [Entitic mass] 31.5 pg Normal 26.0-34.0 [facility] Comment on above: Order Comment: Speci men Type: BLOOD SPECIMENOrdering Facility: [facility] Address: [address] [place] [address] Performed By: #### 5 8410-2 ####[facility] LABORATORYCLIA [id number] [address] [facility] MCHC (RBC) [Mass/Vol] 33.0 g/dL Normal 30.5-36.0 [facility] Comment on above: Order Comment: Speci men Type: BLOOD SPECIMENOrdering Facility: [facility] Address: [address] [place] [address] Performed By: #### 5 8410-2 ####[facility] LABORATORYCLIA [id number] [address] [place] MCV (RBC) [Entitic vol] 95.5 fL Normal 80.0-100.0 [facility] Comment on above: Order Comment: Speci men Type: BLOOD SPECIMENOrdering Facility: [facility] Address: [address] [place] [address] Performed By: #### 5 8410-2 ####[facility] LABORATORYCLIA [id number] [address] [place] Nucleated RBC (Bld) [#/Vol] 10*3/uL Normal <0.01 [facility] Comment on above: Order Comment: Speci men Type: BLOOD SPECIMENOrdering Facility: [facility] Address: [address] [place] [address] Performed By: #### 5 8410-2 ####[facility] LABORATORYCLIA [id number] [address] [place] Platelet mean volume (Bld) [Entitic vol] 13.1 fL High 9.0-12.7 [facility] Comment on above: Order Comment: Speci men Type: BLOOD SPECIMENOrdering Facility: [facility] Address: [address] [place] [address] Performed By: #### 5 8410-2 ####[facility] LABORATORYCLIA [id number] [address] [place] Platelets (Bld) [#/Vol] 226 10*3/uL Normal 150-400 [facility] Comment on above: Order Comment: Speci men Type: BLOOD SPECIMENOrdering Facility: [facility] Address: [address] [place] [address] Performed By: #### 5 8410-2 ####[facility] LABORATORYCLIA [id number] [address] [place] RBC (Bld) [#/Vol] 2.92 10*6/uL Low 3.90-5.20 [facility] Comment on above: Order Comment: Speci men Type: BLOOD SPECIMENOrdering Facility: [facility] Address: [address] [place] [address] Performed By: #### 5 8410-2 ####[facility] LABORATORYCLIA [id number] [place] [address] [place] WBC (Bld) [#/Vol] 7.00 10*3/uL Normal 3.70-11.00 [facility] Comment on above: Order Comment: Speci men Type: BLOOD SPECIMENOrdering Facility: [facility] Address: [address] [place] [address] Performed By: #### 5 8410-2 ####[facility] LABORATORYCLIA [id number] [address] [place] CNPNon 01-21-2025 CNPN Normal [facility] CONSULTon 01-21-2025 CONSULT Normal [facility] CONSULT PROGon 01-21-2025 CONSULT PROG Normal [facility] Comprehensive metabolic 2000 panelon 01-21-2025 Albumin [Mass/Vol] 3.2 g/dL Low 3.9-4.9 [facility] Comment on above: Order Comment: Speci men Type: BLOOD SPECIMENOrdering Facility: [facility] Address: [address] [place] [address] Performed By: #### 2 4323-8 ####[facility] LABORATORYCLIA [id number] [address] [place] ALP [Catalytic activity/Vol] 171 U/L High 34-123 [facility] Comment on above: Order Comment: Speci men Type: BLOOD SPECIMENOrdering Facility: [facility] Address: [address] [place] [address] Performed By: #### 2 4323-8 ####[facility] LABORATORYCLIA [id number] [place] [address] [place] ALT With P-5'-P [Catalytic activity/Vol] 50 U/L High 7-38 [facility] Comment on above: Order Comment: Speci men Type: BLOOD SPECIMENOrdering Facility: [facility] Address: [address] [place] [address] Performed By: #### 2 4323-8 ####[facility] LABORATORYCLIA [id number] [place] [address] [place] Anion gap [Moles/Vol] 11 mmol/L Normal 8-15 [facility] Comment on above: Order Comment: Speci men Type: BLOOD SPECIMENOrdering Facility: [facility] Address: [address] [place] [address] Performed By: #### 2 4323-8 ####[facility] LABORATORYCLIA [id number] [address] [place] AST With P-5'-P [Catalytic activity/Vol] 37 U/L High 13-35 [facility] Comment on above: Order Comment: Speci men Type: BLOOD SPECIMENOrdering Facility: [facility] Address: [address] [place] [address] Performed By: #### 2 4323-8 ####[facility] LABORATORYCLIA [id number] [place] [address] [place] Bilirubin [Mass/Vol] 2.7 mg/dL High 0.2-1.3 [facility] Comment on above: Order Comment: Speci men Type: BLOOD SPECIMENOrdering Facility: [facility] Address: [address] [place] [address] Performed By: #### 2 4323-8 ####[facility] LABORATORYCLIA [id number] [place] [address] [place] Calcium [Mass/Vol] 8.8 mg/dL Normal 8.5-10.2 [facility] Comment on above: Order Comment: Speci men Type: BLOOD SPECIMENOrdering Facility: [facility] Address: [address] [place] [address] Performed By: #### 2 4323-8 ####[facility] LABORATORYCLIA [id number] [place] [address] [place] Chloride [Moles/Vol] 104 mmol/L Normal 98-107 [facility] Comment on above: Order Comment: Speci men Type: BLOOD SPECIMENOrdering Facility: [facility] Address: [address] [place] [address] Performed By: #### 2 4323-8 ####[facility] LABORATORYCLIA [id number] [address] CO2 [Moles/Vol] 24 mmol/L Normal 22-30 [facility] Comment on above: Order Comment: Speci men Type: BLOOD SPECIMENOrdering Facility: [facility] Address: [address] [place] [address] Performed By: #### 2 4323-8 ####[facility] EASTCLIA [id number] [address] Creatinine [Mass/Vol] 0.64 mg/dL Normal 0.58-0.96 [facility] Comment on above: Order Comment: Speci men Type: BLOOD SPECIMENOrdering Facility: [facility] Address: [address] [place] [address] Performed By: #### 2 4323-8 ####[facility] LABORATORYCLIA [id number] [address] Creatinine and Glomerular filtration rate.predicted panel (S/P/Bld) 87 mL/min/1.73m??? Normal >=60 [facility] Comment on above: Order Comment: Speci men Type: BLOOD SPECIMENOrdering Facility: [facility] Address: [address] [place] [address] Result Comment: Kya mated Glomerular Filtration Rate [...] actual GFR. Performed By: #### 2 4323-8 ####[facility] LABORATORYCLIA [id number] [place] [address] [place] Glucose [Mass/Vol] 182 mg/dL High 74-99 [facility] Comment on above: Order Comment: Speci men Type: BLOOD SPECIMENOrdering Facility: [facility] Address: [address] [place] [address] Result Comment: The [place] [employer] (ADA) provides guidance for cutoff [...] Standards of Medical Care in Diabetes 2016, [place] [employer]. Diabetes Care. 2016.39(Suppl 1). Performed By: #### 2 4323-8 ####[facility] LABORATORYCLIA [id number] [place] [address] [place] Potassium [Moles/Vol] 4.1 mmol/L Normal 3.7-5.1 [facility] Comment on above: Order Comment: Speci men Type: BLOOD SPECIMENOrdering Facility: [facility] Address: [address] [place] [address] Performed By: #### 2 4323-8 ####[facility] LABORATORYCLIA [id number] [place] [address] [place] Protein [Mass/Vol] 5.6 g/dL Low 6.3-8.0 [facility] Comment on above: Order Comment: Speci men Type: BLOOD SPECIMENOrdering Facility: [facility] Address: [address] [place] [address] Performed By: #### 2 4323-8 ####[facility] LABORATORYCLIA [id number] [place] [address] [place] Sodium [Moles/Vol] 139 mmol/L Normal 136-144 [facility] Comment on above: Order Comment: Speci men Type: BLOOD SPECIMENOrdering Facility: [facility] Address: [address] [place] [address] Performed By: #### 2 4323-8 ####[facility] LABORATORYCLIA [id number] [address] [facility] Urea nitrogen [Mass/Vol] 14 mg/dL Normal 7- [facility] Comment on above: Order Comment: Speci men Type: BLOOD SPECIMENOrdering Facility: [facility] Address: [address] [place] [address] Performed By: #### 2 4323-8 ####[facility] LABORATORYCLIA [id number] [address] STATES OF [facility] Hematocrit Auto (Bld) [Volum e fraction]on 01-21-2025 Hematocrit (Bld) [Volume fraction] 30.7 % Low 36.0-46.0 [facility] Comment on above: Order Comment: Speci men Type: BLOOD SPECIMENOrdering Facility: [facility] Address: [address] [place] [address] Performed By: #### 4 544-3, 718-7 ####[facility] LABORATORYCLIA [id number] [address] [place] Hgb Bld-mCncon 01-21-2025 Hemoglobin (Bld) [Mass/Vol] 9.9 g/dL Low 11.5-15.5 [facility] Comment on above: Order Comment: Speci men Type: BLOOD SPECIMENOrdering Facility: [facility] Address: [address] [place] [address] Performed By: #### 4 544-3, 718-7 ####[facility] LABORATORYCLIA [id number] [address] [place] CASE MANAGEMon 01-20-2025 CASE MANAGEM Normal [facility] CBC panel Auto (Bld)on 01-20 Erythrocyte distribution width (RBC) [Ratio] 15.9 % High 11.5-15.0 [facility] Comment on above: Order Comment: Speci men Type: BLOOD SPECIMENOrdering Facility: [facility] Address: [address] [place] [address] Performed By: #### 5 8410-2 ####[facility] LABORATORYCLIA [id number] [address] Hematocrit (Bld) [Volume fraction] 30.5 % Low 36.0-46.0 [facility] Comment on above: Order Comment: Speci men Type: BLOOD SPECIMENOrdering Facility: [facility] Address: [address] [place] [address] Performed By: #### 5 8410-2 ####[facility] LABORATORYCLIA [id number] [address] OF [facility] Hemoglobin (Bld) [Mass/Vol] 9.9 g/dL Low 11.5-15.5 [facility] Comment on above: Order Comment: Speci men Type: BLOOD SPECIMENOrdering Facility: [facility] Address: [address] [place] [address] Performed By: #### 5 8410-2 ####[facility] LABORATORYCLIA [id number] [address] MCH (RBC) [Entitic mass] 30.8 pg Normal 26.0-34.0 [facility] Comment on above: Order Comment: Speci men Type: BLOOD SPECIMENOrdering Facility: [facility] Address: [address] [place] [address] Performed By: #### 5 8410-2 ####[facility] LABORATORYCLIA [id number] [address] [place] MCHC (RBC) [Mass/Vol] 32.5 g/dL Normal 30.5-36.0 [facility] Comment on above: Order Comment: Speci men Type: BLOOD SPECIMENOrdering Facility: [facility] Address: [address] [place] [address] Performed By: #### 5 8410-2 ####[facility] [facility] LABORATORYCLIA [id number] [place] [address] [place] MCV (RBC) [Entitic vol] 95.0 fL Normal 80.0-100.0 [facility] Comment on above: Order Comment: Speci men Type: BLOOD SPECIMENOrdering Facility: [facility] Address: [address] [place] [address] Performed By: #### 5 8410-2 ####[facility] LABORATORYCLIA [id number] [place] [address] [place] Nucleated RBC (Bld) [#/Vol] 10*3/uL Normal <0.01 [facility] Comment on above: Order Comment: Speci men Type: BLOOD SPECIMENOrdering Facility: [facility] Address: [address] [place] [address] Performed By: #### 5 8410-2 ####[facility] LABORATORYCLIA [id number] [address] [place] Platelet mean volume (Bld) [Entitic vol] 13.1 fL High 9.0-12.7 [facility] Comment on above: Order Comment: Speci men Type: BLOOD SPECIMENOrdering Facility: [facility] Address: [address] [place] [address] Performed By: #### 5 8410-2 ####[facility] LABORATORYCLIA [id number] [address] [place] Platelets (Bld) [#/Vol] 233 10*3/uL Normal 150-400 [facility] Comment on above: Order Comment: Speci men Type: BLOOD SPECIMENOrdering Facility: [facility] Address: [address] [place] [address] Performed By: #### 5 8410-2 ####[facility] LABORATORYCLIA [id number] [place] [address] [place] RBC (Bld) [#/Vol] 3.21 10*6/uL Low 3.90-5.20 [facility] Comment on above: Order Comment: Speci men Type: BLOOD SPECIMENOrdering Facility: [facility] Address: [address] [place] [address] Performed By: #### 5 8410-2 ####[facility] LABORATORYCLIA [id number] [place] [address] [place] WBC (Bld) [#/Vol] 8.06 10*3/uL Normal 3.70-11.00 [facility] Comment on above: Order Comment: Speci men Type: BLOOD SPECIMENOrdering Facility: [facility] Address: [address] [place] [address] Performed By: #### 5 8410-2 ####[facility] LABORATORYCLIA [id number] [address] [place] CONSULT PROGon 01-20-2025 CONSULT PROG Normal [facility] Comprehensive metabolic 2000 panelon 01-20-2025 Albumin [Mass/Vol] 3.2 g/dL Low 3.9-4.9 [facility] Comment on above: Order Comment: Speci men Type: BLOOD SPECIMENOrdering Facility: [facility] Address: [address] [place] [address] Performed By: #### 2 4323-8 ####[facility] LABORATORYCLIA [id number] [address] [place] ALP [Catalytic activity/Vol] 197 U/L High 34-123 [facility] Comment on above: Order Comment: Speci men Type: BLOOD SPECIMENOrdering Facility: [facility] Address: [address] [place] [address] Performed By: #### 2 4323-8 ####[facility] LABORATORYCLIA [id number] [address] [place] ALT With P-5'-P [Catalytic activity/Vol] 60 U/L High 7-38 [facility] Comment on above: Order Comment: Speci men Type: BLOOD SPECIMENOrdering Facility: [facility] Address: [address] [place] [address] Performed By: #### 2 4323-8 ####[facility] LABORATORYCLIA [id number] [address] [place] Anion gap [Moles/Vol] 10 mmol/L Normal 8-15 [facility] Comment on above: Order Comment: Speci men Type: BLOOD SPECIMENOrdering Facility: [facility] Address: [address] [place] [address] Performed By: #### 2 4323-8 ####[facility] LABORATORYCLIA [id number] [place] [address] [place] AST With P-5'-P [Catalytic activity/Vol] 32 U/L Normal 13-35 [facility] Comment on above: Order Comment: Speci men Type: BLOOD SPECIMENOrdering Facility: [facility] Address: [address] [place] [address] Performed By: #### 2 4323-8 ####[facility] LABORATORYCLIA [id number] [place] [address] [place] Bilirubin [Mass/Vol] 3.1 mg/dL High 0.2-1.3 [facility] Comment on above: Order Comment: Speci men Type: BLOOD SPECIMENOrdering Facility: [facility] Address: [address] [place] [address] Performed By: #### 2 4323-8 ####[facility] LABORATORYCLIA [id number] [place] [address] [place] Calcium [Mass/Vol] 8.9 mg/dL Normal 8.5-10.2 [facility] Comment on above: Order Comment: Speci men Type: BLOOD SPECIMENOrdering Facility: [facility] Address: [address] [place] [address] Performed By: #### 2 4323-8 ####[facility]ORATORYCLIA [id number] [place] [address] [place] Chloride [Moles/Vol] 102 mmol/L Normal 98-107 [facility] Comment on above: Order Comment: Speci men Type: BLOOD SPECIMENOrdering Facility: [facility] Address: [address] [place] [address] Performed By: #### 2 4323-8 ####[facility]ORATORYCLIA [id number] [address] CO2 [Moles/Vol] 23 mmol/L Normal 22-30 [facility] Comment on above: Order Comment: Speci men Type: BLOOD SPECIMENOrdering Facility: [facility] Address: [address] [place] [address] Performed By: #### 2 4323-8 ####[facility] LABORATORYCLIA [id number] [address] STATES OF [facility] Creatinine [Mass/Vol] 0.65 mg/dL Normal 0.58-0.96 [facility] Comment on above: Order Comment: Speci men Type: BLOOD SPECIMENOrdering Facility: [facility] Address: [address] [place] [address] Performed By: #### 2 4323-8 ####[facility] LABORATORYCLIA [id number] [address] Creatinine and Glomerular filtration rate.predicted panel (S/P/Bld) 87 mL/min/1.73m??? Normal >=60 [facility] Comment on above: Order Comment: Speci men Type: BLOOD SPECIMENOrdering Facility: [facility] Address: [address] [place] [address] Result Comment: Kya mated Glomerular Filtration Rate [...] actual GFR. Performed By: #### 2 4323-8 ####[facility] LABORATORYCLIA [id number] [address] STATES OF [facility] Glucose [Mass/Vol] 232 mg/dL High 74-99 [facility] Comment on above: Order Comment: Speci shantell Type: BLOOD SPECIMENOrdering Facility: [facility] Address: [address] [place] [address] Result Comment: The [place] [employer] (ADA) provides guidance for cutoff [...] Standards of Medical Care in Diabetes 2016, [place] [employer]. Diabetes Care. 2016.39(Suppl 1). Performed By: #### 2 4323-8 ####[facility] LABORATORYCLIA [id number] [place] [address] [place] Potassium [Moles/Vol] 4.1 mmol/L Normal 3.7-5.1 [facility] Comment on above: Order Comment: Speci men Type: BLOOD SPECIMENOrdering Facility: [facility] Address: [address] [place] [address] Performed By: #### 2 4323-8 ####[facility] LABORATORYCLIA [id number] [place] [address] [place] Protein [Mass/Vol] 5.7 g/dL Low 6.3-8.0 [facility] Comment on above: Order Comment: Dayron stinson Type: BLOOD SPECIMENOrdering Facility: [facility] Address: [address] [place] [address] Performed By: #### 2 4323-8 ####[facility] LABORATORYCLIA [id number] [place] [address] [place] Sodium [Moles/Vol] 135 mmol/L Low 136-144 [facility] Comment on above: Order Comment: Elinori men Type: BLOOD SPECIMENOrdering Facility: [facility] Address: [address] [place] [address] Performed By: #### 2 4323-8 ####[facility] LABORATORYCLIA [id number] [place] [address] [place] Urea nitrogen [Mass/Vol] 14 mg/dL Normal 7-21 [facility] Comment on above: Order Comment: Speci men Type: BLOOD SPECIMENOrdering Facility: [facility] Address: [address] [place] [address] Performed By: #### 2 4323-8 ####[facility] LABORATORYCLIA [id number] [place] [address] [place] ALLIED HEALTHon 01-19-2025 ALLIED HEALTH Normal [facility] CBC panel Auto (Bld)on 01-19 Erythrocyte distribution width (RBC) [Ratio] 15.8 % High 11.5-15.0 [facility] Comment on above: Order Comment: Speci men Type: BLOOD SPECIMENOrdering Facility: [facility] Address: [address] [place] [address] Performed By: #### 5 8410-2 ####[facility] LABORATORYCLIA [id number] [address] [place] Hematocrit (Bld) [Volume fraction] 30.9 % Low 36.0-46.0 [facility] Comment on above: Order Comment: Speci men Type: BLOOD SPECIMENOrdering Facility: [facility] Address: [address] [place] [address] Performed By: #### 5 8410-2 ####[facility] LABORATORYCLIA [id number] [address] [place] Hemoglobin (Bld) [Mass/Vol] 10.3 g/dL Low 11.5-15.5 [facility] Comment on above: Order Comment: Speci men Type: BLOOD SPECIMENOrdering Facility: [facility] Address: [address] [place] [address] Performed By: #### 5 8410-2 ####[facility] LABORATORYCLIA [id number] [address] [place] MCH (RBC) [Entitic mass] 30.7 pg Normal 26.0-34.0 [facility] Comment on above: Order Comment: Speci men Type: BLOOD SPECIMENOrdering Facility: [facility] Address: [address] [place] [address] Performed By: #### 5 8410-2 ####[facility] LABORATORYCLIA [id number] [address] [facility] MCHC (RBC) [Mass/Vol] 33.3 g/dL Normal 30.5-36.0 [facility] Comment on above: Order Comment: Speci men Type: BLOOD SPECIMENOrdering Facility: [facility] Address: [address] [place] [address] Performed By: #### 5 8410-2 ####[facility] LABORATORYCLIA [id number] [address] [place] MCV (RBC) [Entitic vol] 92.2 fL Normal 80.0-100.0 [facility] Comment on above: Order Comment: Speci men Type: BLOOD SPECIMENOrdering Facility: [facility] Address: [address] [place] [address] Performed By: #### 5 8410-2 ####[facility] LABORATORYCLIA [id number] [address] Nucleated RBC (Bld) [#/Vol] 10*3/uL Normal <0.01 [facility] Comment on above: Order Comment: Speci men Type: BLOOD SPECIMENOrdering Facility: [facility] Address: [address] [place] [address] Performed By: #### 5 8410-2 ####[facility] LABORATORYCLIA [id number] [address] [place] Platelet mean volume (Bld) [Entitic vol] 13.9 fL High 9.0-12.7 [facility] Comment on above: Order Comment: Speci men Type: BLOOD SPECIMENOrdering Facility: [facility] Address: [address] [place] [address] Performed By: #### 5 8410-2 ####[facility] LABORATORYCLIA [id number] [address] [place] Platelets (Bld) [#/Vol] 219 10*3/uL Normal 150-400 [facility] Comment on above: Order Comment: Speci men Type: BLOOD SPECIMENOrdering Facility: [facility] Address: [address] [place] [address] Performed By: #### 5 8410-2 ####[facility] LABORATORYCLIA [id number] [place] [id number] [facility] RBC (Bld) [#/Vol] 3.35 10*6/uL Low 3.90-5.20 [facility] Comment on above: Order Comment: Speci men Type: BLOOD SPECIMENOrdering Facility: [facility] Address: [address] [place] [address] Performed By: #### 5 8410-2 ####[facility] LABORATORYCLIA [id number] [place] [id number] [facility] WBC (Bld) [#/Vol] 9.47 10*3/uL Normal 3.70-11.00 [facility] Comment on above: Order Comment: Speci shantell Type: BLOOD SPECIMENOrdering Facility: [facility] Address: [address] [place] [address] Performed By: #### 5 8410-2 ####[facility] LABORATORYCLIA [id number] [address] CNPClarissa 01-19-2025 [facility]FAMNicoleWS[facility] -- TELMA TINEO ([id number]) 1940 F Date Time Provider Department 01/19/25 [...] Tolu 3 CGM system. Please send to [facility] [place]. Please notify son once completed. Patient has been identified by name and birthdate. Duration of symptoms: N/A Person calling: son: Timothy Call patient at: on cell Was an appointment scheduled: No Closing statement: Results or non-symptom based questions: Thank you for calling [facility], your call will be returned within the next business day. Dahlia Franco Pss Henok Martinez MD 01/19/2025 11:51 AM Signed Let them know rx sent. If there is anything else we can do please let us know [place] Dahlia Brareto 01/19/2025 1:39 PM Signed Timothy, son called again and he stated that [facility] told him they can no longer bill medicare for diabetic CGM. They told him to have the prescriptions sent to [facility] [place]. Please notify Timothy once sent. Henok Martinez [...] Schuster RN 01/25/2025 11:39 AM Signed [facility] calls to request most recent OV notes [...] - Blood-Glucose Meter,Continuous (FREESTYLE TOLU 3 READER) [facility] [place] Use to check blood sugar at least [...] once daily. - Blood Pressure Test Kit-Large (Pivot ARM BP MONITOR) 1 Each once daily. 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 Normal [facility] CONSULT PROGon 01-19-2025 CONSULT PROG Normal [facility] Comprehensive metabolic 2000 panelon 01-19-2025 Albumin [Mass/Vol] 3.3 g/dL Low 3.9-4.9 [facility] Comment on above: Order Comment: Dayron stinson Type: BLOOD SPECIMENOrdering Facility: [facility] Address: [address] [place] [address] Performed By: #### 2 4323-8 ####[facility] LABORATORYCLIA [id number] [place] [address] [place] ALP [Catalytic activity/Vol] 241 U/L High 34-123 [facility] Comment on above: Order Comment: Dayron stinson Type: BLOOD SPECIMENOrdering Facility: [facility] Address: [address] [place] [address] Performed By: #### 2 4323-8 ####[facility] LABORATORYCLIA [id number] [place] [address] [place] ALT With P-5'-P [Catalytic activity/Vol] 78 U/L High 7-38 [facility] Comment on above: Order Comment: Dayron stinson Type: BLOOD SPECIMENOrdering Facility: [facility] Address: [facility] [place] [address] Performed By: #### 2 4323-8 ####[facility] LABORATORYCLIA [id number] [address] [place] Anion gap [Moles/Vol] 10 mmol/L Normal 8-15 [facility] Comment on above: Order Comment: Speci men Type: BLOOD SPECIMENOrdering Facility: [facility] Address: [facility] [place] [address] Performed By: #### 2 4323-8 ####[facility] LABORATORYCLIA [id number] [place] [address] [place] AST With P-5'-P [Catalytic activity/Vol] 38 U/L High 13-35 [facility] Comment on above: Order Comment: Speci men Type: BLOOD SPECIMENOrdering Facility: [facility] Address: [address] [place] [address] Performed By: #### 2 4323-8 ####[facility] LABORATORYCLIA [id number] [place] [address] [place] Bilirubin [Mass/Vol] 3.8 mg/dL High 0.2-1.3 [facility] Comment on above: Order Comment: Speci men Type: BLOOD SPECIMENOrdering Facility: [facility] Address: [address] [place] [address] Performed By: #### 2 4323-8 ####[facility] LABORATORYCLIA [id number] [place] [address] [place] Calcium [Mass/Vol] 9.0 mg/dL Normal 8.5-10.2 [facility] Comment on above: Order Comment: Speci men Type: BLOOD SPECIMENOrdering Facility: [facility] Address: [address] [place] [address] Performed By: #### 2 4323-8 ####[facility] LABORATORYCLIA [id number] [place] [address] [place] Chloride [Moles/Vol] 97 mmol/L Low 98-107 [facility] Comment on above: Order Comment: Speci men Type: BLOOD SPECIMENOrdering Facility: [facility] Address: [address] [place] [address] Performed By: #### 2 4323-8 ####[facility]ORATORYCLIA [id number] [address] OF [facility] CO2 [Moles/Vol] 23 mmol/L Normal 22-30 [facility] Comment on above: Order Comment: Speci men Type: BLOOD SPECIMENOrdering Facility: [facility] Address: [address] [place] [address] Performed By: #### 2 4323-8 ####[facility] LABORATORYCLIA [id number] [address] [place] Creatinine [Mass/Vol] 0.62 mg/dL Normal 0.58-0.96 [facility] Comment on above: Order Comment: Speci men Type: BLOOD SPECIMENOrdering Facility: [facility] Address: [address] [place] [address] Performed By: #### 2 4323-8 ####[facility] LABORATORYCLIA [id number] [address] Creatinine and Glomerular filtration rate.predicted panel (S/P/Bld) 88 mL/min/1.73m??? Normal >=60 [facility] Comment on above: Order Comment: Speci men Type: BLOOD SPECIMENOrdering Facility: [facility] Address: [address] [place] [address] Result Comment: Kya mated Glomerular Filtration Rate [...] actual GFR. Performed By: #### 2 4323-8 ####[facility] LABORATORYCLIA [id number] [address] STATES OF [facility] Glucose [Mass/Vol] 262 mg/dL High 74-99 [facility] Comment on above: Order Comment: Speci men Type: BLOOD SPECIMENOrdering Facility: [facility] Address: [address] [place] [address] Result Comment: The [place] [employer] (ADA) provides guidance for cutoff [...] Standards of Medical Care in Diabetes 2016, [place] [employer]. Diabetes Care. 2016.39(Suppl 1). Performed By: #### 2 4323-8 ####[facility] LABORATORYCLIA [id number] [place] [address] [place] Potassium [Moles/Vol] 3.7 mmol/L Normal 3.7-5.1 [facility] Comment on above: Order Comment: Speci men Type: BLOOD SPECIMENOrdering Facility: [facility] Address: [address] [place] [address] Performed By: #### 2 4323-8 ####[facility] LABORATORYCLIA [id number] [place] [address] [place] Protein [Mass/Vol] 5.7 g/dL Low 6.3-8.0 [facility] Comment on above: Order Comment: Dayron stinson Type: BLOOD SPECIMENOrdering Facility: [facility] Address: [address] [place] [address] Performed By: #### 2 4323-8 ####[facility] LABORATORYCLIA [id number] [place] [address] [place] Sodium [Moles/Vol] 130 mmol/L Low 136-144 [facility] Comment on above: Order Comment: Elinori men Type: BLOOD SPECIMENOrdering Facility: [facility] Address: [address] [place] [address] Performed By: #### 2 4323-8 ####[facility] LABORATORYCLIA [id number] [place] [address] [place] Urea nitrogen [Mass/Vol] 14 mg/dL Normal 7-21 [facility] Comment on above: Order Comment: Speci men Type: BLOOD SPECIMENOrdering Facility: [facility] Address: [address] [place] [address] Performed By: #### 2 4323-8 ####[facility] LABORATORYCLIA [id number] [place] [id number] [place] ALLIED HEALTHon 01-18-2025 ALLIED HEALTH Normal [facility] CASE MANAGEMon 01-18-2025 CASE MANAGEM Normal [facility] CBC panel Auto (Bld)on 01-18 Erythrocyte distribution width (RBC) [Ratio] 16.4 % High 11.5-15.0 [facility] Comment on above: Order Comment: Speci men Type: BLOOD SPECIMENOrdering Facility: [facility] Address: [address] [place] [address] Performed By: #### 5 8410-2 ####[facility] LABORATORYCLIA [id number] [address] [place] Hematocrit (Bld) [Volume fraction] 31.9 % Low 36.0-46.0 [facility] Comment on above: Order Comment: Speci men Type: BLOOD SPECIMENOrdering Facility: [facility] Address: [address] [place] [address] Performed By: #### 5 8410-2 ####[facility] LABORATORYCLIA [id number] [place] [address] [place] Hemoglobin (Bld) [Mass/Vol] 10.7 g/dL Low 11.5-15.5 [facility] Comment on above: Order Comment: Speci men Type: BLOOD SPECIMENOrdering Facility: [facility] Address: [address] [place] [address] Performed By: #### 5 8410-2 ####[facility] LABORATORYCLIA [id number] [place] [address] [place] MCH (RBC) [Entitic mass] 30.7 pg Normal 26.0-34.0 [facility] Comment on above: Order Comment: Speci men Type: BLOOD SPECIMENOrdering Facility: [facility] Address: [address] [place] [address] Performed By: #### 5 8410-2 ####[facility] LABORATORYCLIA [id number] [address] [facility] MCHC (RBC) [Mass/Vol] 33.5 g/dL Normal 30.5-36.0 [facility] Comment on above: Order Comment: Speci men Type: BLOOD SPECIMENOrdering Facility: [facility] Address: [address] [place] [address] Performed By: #### 5 8410-2 ####[facility] LABORATORYCLIA [id number] [address] OF [facility] MCV (RBC) [Entitic vol] 91.7 fL Normal 80.0-100.0 [facility] Comment on above: Order Comment: Speci men Type: BLOOD SPECIMENOrdering Facility: [facility] Address: [address] [place] [address] Performed By: #### 5 8410-2 ####[facility] LABORATORYCLIA [id number] [address] STATES OF [facility] Nucleated RBC (Bld) [#/Vol] 10*3/uL Normal <0.01 [facility] Comment on above: Order Comment: Speci men Type: BLOOD SPECIMENOrdering Facility: [facility] Address: [address] [place] [address] Performed By: #### 5 8410-2 ####[facility] LABORATORYCLIA [id number] [address] Platelet mean volume (Bld) [Entitic vol] 14.1 fL High 9.0-12.7 [facility] Comment on above: Order Comment: Speci men Type: BLOOD SPECIMENOrdering Facility: [facility] Address: [address] [place] [address] Performed By: #### 5 8410-2 ####[facility] LABORATORYCLIA [id number] [address] [place] Platelets (Bld) [#/Vol] 207 10*3/uL Normal 150-400 [facility] Comment on above: Order Comment: Speci men Type: BLOOD SPECIMENOrdering Facility: [facility] Address: [address] [place] [address] Result Comment: No c lot detected. Performed By: #### 5 8410-2 ####[facility] LABORATORYCLIA [id number] [address] STATES OF [facility] RBC (Bld) [#/Vol] 3.48 10*6/uL Low 3.90-5.20 [facility] Comment on above: Order Comment: Speci men Type: BLOOD SPECIMENOrdering Facility: [facility] Address: [address] [place] [address] Performed By: #### 5 8410-2 ####[facility] LABORATORYCLIA [id number] [address] STATES [place] WBC (Bld) [#/Vol] 9.97 10*3/uL Normal 3.70-11.00 [facility] Comment on above: Order Comment: Speci men Type: BLOOD SPECIMENOrdering Facility: [facility] Address: [address] [place] [address] Performed By: #### 5 8410-2 ####[facility] LABORATORYCLIA [id number] [address] [place] CONSULTon 01-18-2025 CONSULT Normal [facility] CONSULT Normal [facility] CONSULT PROGon 01-18-2025 CONSULT PROG Normal [facility] Comprehensive metabolic 2000 panelon 01-18-2025 Albumin [Mass/Vol] 3.2 g/dL Low 3.9-4.9 [facility] Comment on above: Order Comment: Speci men Type: BLOOD SPECIMENOrdering Facility: [facility] Address: [address] [place] [address] Performed By: #### 2 4323-8 ####[facility] LABORATORYCLIA [id number] [address] [place] ALP [Catalytic activity/Vol] 261 U/L High 34-123 [facility] Comment on above: Order Comment: Speci men Type: BLOOD SPECIMENOrdering Facility: [facility] Address: [address] [place] [address] Performed By: #### 2 4323-8 ####[facility] LABORATORYCLIA [id number] [address] [place] ALT With P-5'-P [Catalytic activity/Vol] 88 U/L High 7-38 [facility] Comment on above: Order Comment: Speci men Type: BLOOD SPECIMENOrdering Facility: [facility] Address: [address] [place] [address] Performed By: #### 2 4323-8 ####[facility] LABORATORYCLIA [id number] [address] Anion gap [Moles/Vol] 14 mmol/L Normal 8-15 [facility] Comment on above: Order Comment: Speci men Type: BLOOD SPECIMENOrdering Facility: [facility] Address: [address] [place] [address] Performed By: #### 2 4323-8 ####[facility] LABORATORYCLIA [id number] [address] AST With P-5'-P [Catalytic activity/Vol] 33 U/L Normal 13-35 [facility] Comment on above: Order Comment: Speci men Type: BLOOD SPECIMENOrdering Facility: [facility] Address: [address] [place] [address] Performed By: #### 2 4323-8 ####[facility] LABORATORYCLIA [id number] [address] STATES [place] Bilirubin [Mass/Vol] 4.8 mg/dL High 0.2-1.3 [facility] Comment on above: Order Comment: Speci men Type: BLOOD SPECIMENOrdering Facility: [facility] Address: [address] [place] [address] Performed By: #### 2 4323-8 ####[facility] LABORATORYCLIA [id number] [address] Calcium [Mass/Vol] 9.1 mg/dL Normal 8.5-10.2 [facility] Comment on above: Order Comment: Speci men Type: BLOOD SPECIMENOrdering Facility: [facility] Address: [address] [place] [address] Performed By: #### 2 4323-8 ####[facility] LABORATORYCLIA [id number] [place] [address] [place] Chloride [Moles/Vol] 100 mmol/L Normal 98-107 [facility] Comment on above: Order Comment: Speci men Type: BLOOD SPECIMENOrdering Facility: [facility] Address: [address] [place] [address] Performed By: #### 2 4323-8 ####[facility] LABORATORYCLIA [id number] [address] [place] CO2 [Moles/Vol] 20 mmol/L Low 22-30 [facility] Comment on above: Order Comment: Speci men Type: BLOOD SPECIMENOrdering Facility: [facility] Address: [address] [place] [address] Performed By: #### 2 4323-8 ####[facility] LABORATORYCLIA [id number] [address] [place] Creatinine [Mass/Vol] 0.63 mg/dL Normal 0.58-0.96 [facility] Comment on above: Order Comment: Speci men Type: BLOOD SPECIMENOrdering Facility: [facility] Address: [address] [place] [address] Performed By: #### 2 4323-8 ####[facility] LABORATORYCLIA [id number] [address] Creatinine and Glomerular filtration rate.predicted panel (S/P/Bld) 88 mL/min/1.73m??? Normal >=60 [facility] Comment on above: Order Comment: Speci men Type: BLOOD SPECIMENOrdering Facility: [facility] Address: [address] [place] [address] Result Comment: Kya mated Glomerular Filtration Rate [...] actual GFR. Performed By: #### 2 4323-8 ####[facility] LABORATORYCLIA [id number] [place] [address] [place] Glucose [Mass/Vol] 244 mg/dL High 74-99 [facility] Comment on above: Order Comment: Dayron stinson Type: BLOOD SPECIMENOrdering Facility: [facility] Address: [address] [place] [address] Result Comment: The [place] Diabetes Association (ADA) provides guidance for cutoff [...] Standards of Medical Care in Diabetes 2016, [place] [employer]. Diabetes Care. 2016.39(Suppl 1). Performed By: #### 2 4323-8 ####[facility] LABORATORYCLIA [id number] [place] [address] [place] Potassium [Moles/Vol] 3.9 mmol/L Normal 3.7-5.1 [facility] Comment on above: Order Comment: Dayron stinson Type: BLOOD SPECIMENOrdering Facility: [facility] Address: [address] [id number] Performed By: #### 2 4323-8 ####[facility] LABORATORYCLIA [id number] [place] [address] [place] Protein [Mass/Vol] 6.0 g/dL Low 6.3-8.0 [facility] Comment on above: Order Comment: Speci men Type: BLOOD SPECIMENOrdering Facility: [facility] Address: [address] [place] [address] Performed By: #### 2 4323-8 ####[facility] LABORATORYCLIA [id number] [place] [address] [place] Sodium [Moles/Vol] 134 mmol/L Low 136-144 [facility] Comment on above: Order Comment: Speci men Type: BLOOD SPECIMENOrdering Facility: [facility] Address: [address] [place] [address] Performed By: #### 2 4323-8 ####[facility] LABORATORYCLIA [id number] [address] [place] Urea nitrogen [Mass/Vol] 10 mg/dL Normal 7-21 [facility] Comment on above: Order Comment: Speci men Type: BLOOD SPECIMENOrdering Facility: [facility] Address: [address] [place] [address] Performed By: #### 2 4323-8 ####[facility] LABORATORYCLIA [id number] [address] STATES [place] MEDICAL EMERon 01-18-2025 MEDICAL SHARITA Normal [facility] NUTRITIONon 01-18-2025 NUTRITION Normal [facility] PT EDon 01-18-2025 PT ED Normal [facility] CBC panel Auto (Bld)on 01-17 Erythrocyte distribution width (RBC) [Ratio] 17.0 % High 11.5-15.0 [facility] Comment on above: Order Comment: Speci men Type: BLOOD SPECIMENOrdering Facility: [facility] Address: [address] [place] [address] Performed By: #### 5 8410-2 ####[facility] LABORATORYCLIA [id number] [place] [address] [place]#### 93316-3 ####[facility] LABCLIA [id number] [place] [address] [place] Hematocrit (Bld) [Volume fraction] 35.7 % Low 36.0-46.0 [facility] Comment on above: Order Comment: Speci men Type: BLOOD SPECIMENOrdering Facility: [facility] Address: [address] [place] [address] Performed By: #### 5 8410-2 ####[facility] LABORATORYCLIA [id number] [address]#### 99704-4 ####[facility] LABCLIA [id number] [place] [address] [place] Hemoglobin (Bld) [Mass/Vol] 11.7 g/dL Normal 11.5-15.5 [facility] Comment on above: Order Comment: Speci men Type: BLOOD SPECIMENOrdering Facility: [facility] Address: [address] [place] [address] Performed By: #### 5 8410-2 ####[facility] LABORATORYCLIA [id number] [address]#### 46659-2 ####[facility] LABCLIA [id number] [address] [place] MCH (RBC) [Entitic mass] 30.0 pg Normal 26.0-34.0 [facility] Comment on above: Order Comment: Speci men Type: BLOOD SPECIMENOrdering Facility: [facility] Address: [address] [place] [address] Performed By: #### 5 8410-2 ####[facility] LABORATORYCLIA [id number] [address] [place]#### 49865-3 ####[facility] LABCLIA [id number] [place] [address] [place] MCHC (RBC) [Mass/Vol] 32.8 g/dL Normal 30.5-36.0 [facility] Comment on above: Order Comment: Speci men Type: BLOOD SPECIMENOrdering Facility: [facility] Address: [address] [place] [address] Performed By: #### 5 8410-2 ####[facility] LABORATORYCLIA [id number] [address]#### 20448-9 ####[facility] LABCLIA [id number] [place] [address] [place] MCV (RBC) [Entitic vol] 91.5 fL Normal 80.0-100.0 [facility] Comment on above: Order Comment: Speci men Type: BLOOD SPECIMENOrdering Facility: [facility] Address: [address] [place] [address] Performed By: #### 5 8410-2 ####[facility] LABORATORYCLIA [id number] [address]#### 33300-6 ####[facility] LABCLIA [id number] [place] [address] [place] Nucleated RBC (Bld) [#/Vol] 10*3/uL Normal <0.01 [facility] Comment on above: Order Comment: Speci men Type: BLOOD SPECIMENOrdering Facility: [facility] Address: [address] [place] [address] Performed By: #### 5 8410-2 ####[facility] LABORATORYCLIA [id number] [address]#### 04056-3 ####[facility] LABCLIA [id number] [place] [address] [place] Platelet mean volume (Bld) [Entitic vol] 13.9 fL High 9.0-12.7 [facility] Comment on above: Order Comment: Speci men Type: BLOOD SPECIMENOrdering Facility: [facility] Address: [address] [place] [address] Performed By: #### 5 8410-2 ####[facility] EASTCLIA [id number] [address] [place]#### 90739-3 ####[facility] LABCLIA [id number] [place] [address] [place] Platelets (Bld) [#/Vol] 212 10*3/uL Normal 150-400 [facility] Comment on above: Order Comment: Speci men Type: BLOOD SPECIMENOrdering Facility: [facility] Address: [address] [place] [address] Result Comment: Plat elet count confirmed by manual review of peripheral blood smear. No clot detected. Performed By: #### 5 8410-2 ####[facility] LABORATORYCLIA [id number] [address] [place]#### 12178-4 ####[facility] LABCLIA [id number] [place] [address] [place] RBC (Bld) [#/Vol] 3.90 10*6/uL Normal 3.90-5.20 [facility] Comment on above: Order Comment: Speci men Type: BLOOD SPECIMENOrdering Facility: [facility] Address: [address] [place] [address] Performed By: #### 5 8410-2 ####[facility] LABORATORYCLIA [id number] [address] [place]#### 14568-7 ####[facility] LABCLIA [id number] [place] [address] [place] WBC (Bld) [#/Vol] 13.38 10*3/uL High 3.70-11.00 [facility] Comment on above: Order Comment: Speci men Type: BLOOD SPECIMENOrdering Facility: [facility] Address: [address] [place] [address] Performed By: #### 5 8410-2 ####[facility] LABORATORYCLIA [id number] [place] [address] [place]#### 48116-1 ####[facility] LABCLIA [id number] [address] [place] Comprehensive metabolic 2000 panelon 01-17-2025 Albumin [Mass/Vol] 3.7 g/dL Low 3.9-4.9 [facility] Comment on above: Order Comment: Speci men Type: BLOOD SPECIMENOrdering Facility: [facility] Address: [address] [place] [address] Performed By: #### 2 4323-8 ####[facility] LABORATORYCLIA [id number] [address] [place] ALP [Catalytic activity/Vol] 350 U/L High 34-123 [facility] Comment on above: Order Comment: Speci men Type: BLOOD SPECIMENOrdering Facility: [facility] Address: [address] [place] [address] Performed By: #### 2 4323-8 ####[facility] LABORATORYCLIA [id number] [address] [place] ALT With P-5'-P [Catalytic activity/Vol] 137 U/L High 7-38 [facility] Comment on above: Order Comment: Speci men Type: BLOOD SPECIMENOrdering Facility: [facility] Address: [address] [place] [address] Performed By: #### 2 4323-8 ####[facility] LABORATORYCLIA [id number] [address] [place] Anion gap [Moles/Vol] 19 mmol/L High 8-15 [facility] Comment on above: Order Comment: Speci men Type: BLOOD SPECIMENOrdering Facility: [facility] Address: [address] [place] [address] Performed By: #### 2 4323-8 ####[facility] LABORATORYCLIA [id number] [place] [address] [place] AST With P-5'-P [Catalytic activity/Vol] 47 U/L High 13-35 [facility] Comment on above: Order Comment: Speci men Type: BLOOD SPECIMENOrdering Facility: [facility] Address: [address] [place] [address] Performed By: #### 2 4323-8 ####[facility] LABORATORYCLIA [id number] [place] [address] [place] Bilirubin [Mass/Vol] 6.6 mg/dL High 0.2-1.3 [facility] Comment on above: Order Comment: Speci men Type: BLOOD SPECIMENOrdering Facility: [facility] Address: [address] [place] [address] Performed By: #### 2 4323-8 ####[facility] LABORATORYCLIA [id number] [place] [address] [place] Calcium [Mass/Vol] 9.5 mg/dL Normal 8.5-10.2 [facility] Comment on above: Order Comment: Speci men Type: BLOOD SPECIMENOrdering Facility: [facility] Address: [address] [place] [address] Performed By: #### 2 4323-8 ####[facility] LABORATORYCLIA [id number] [place] [address] [place] Chloride [Moles/Vol] 95 mmol/L Low 98-107 [facility] Comment on above: Order Comment: Speci men Type: BLOOD SPECIMENOrdering Facility: [facility] Address: [address] [place] [address] Performed By: #### 2 4323-8 ####[facility] LABORATORYCLIA [id number] [place] [address] [place] CO2 [Moles/Vol] 17 mmol/L Low 22-30 [facility] Comment on above: Order Comment: Speci men Type: BLOOD SPECIMENOrdering Facility: [facility] Address: [address] [place] [address] Performed By: #### 2 4323-8 ####[facility] LABORATORYCLIA [id number] [place] [address] [place] Creatinine [Mass/Vol] 0.55 mg/dL Low 0.58-0.96 [facility] Comment on above: Order Comment: Dayron stinson Type: BLOOD SPECIMENOrdering Facility: [facility] Address: [address] [place] [address] Performed By: #### 2 4323-8 ####[facility] LABORATORYCLIA [id number] [address] Creatinine and Glomerular filtration rate.predicted panel (S/P/Bld) 91 mL/min/1.73m??? Normal >=60 [facility] Comment on above: Order Comment: Dayron stinson Type: BLOOD SPECIMENOrdering Facility: [facility] Address: [address] [place] [address] Result Comment: Kya mated Glomerular Filtration Rate [...] actual GFR. Performed By: #### 2 4323-8 ####[facility] LABORATORYCLIA [id number] [address] STATES OF [facility] Glucose [Mass/Vol] 276 mg/dL High 74-99 [facility] Comment on above: Order Comment: Dayron stinson Type: BLOOD SPECIMENOrdering Facility: [facility] Address: [address] [place] [address] Result Comment: The [place] Diabetes Association (ADA) provides guidance for cutoff [...] Standards of Medical Care in Diabetes 2016, [place] [employer]. Diabetes Care. 2016.39(Suppl 1). Performed By: #### 2 4323-8 ####[facility] LABORATORYCLIA [id number] [place] [address] [place] Potassium [Moles/Vol] 4.2 mmol/L Normal 3.7-5.1 [facility] Comment on above: Order Comment: Speci men Type: BLOOD SPECIMENOrdering Facility: [facility] Address: [address] [place] [address] Performed By: #### 2 4323-8 ####[facility] LABORATORYCLIA [id number] [address] [place] Protein [Mass/Vol] 6.6 g/dL Normal 6.3-8.0 [facility] Comment on above: Order Comment: Speci men Type: BLOOD SPECIMENOrdering Facility: [facility] Address: [address] [place] [address] Performed By: #### 2 4323-8 ####[facility] LABORATORYCLIA [id number] [address] [place] Sodium [Moles/Vol] 131 mmol/L Low 136-144 [facility] Comment on above: Order Comment: Speci men Type: BLOOD SPECIMENOrdering Facility: [facility] Address: [address] [place] [address] Performed By: #### 2 4323-8 ####[facility] LABORATORYCLIA [id number] [address] [place] Urea nitrogen [Mass/Vol] 11 mg/dL Normal 7-21 [facility] Comment on above: Order Comment: Speci men Type: BLOOD SPECIMENOrdering Facility: [facility] Address: [address] [place] [address] Performed By: #### 2 4323-8 ####[facility] LABORATORYCLIA [id number] [address] [place] HbA1c (Bld)on 01-17-2025 Average glucose Estimated from glycated hemoglobin (Bld) [Mass/Vol] 258 mg/dL Normal [facility] Comment on above: Order Comment: Speci men Type: BLOOD SPECIMENOrdering Facility: [facility] Address: [address] [place] [address] Result Comment: eAG: (Estimated average glucose) is a calculated value from HgbA1c and is operations representative of the average blood glucose level in the last 2-3 month period. Performed By: #### 5 8410-2 ####[facility] LABORATORYCLIA [id number] [address]#### 00647-1 ####[facility] LABCLIA [id number] [address] [place] HbA1c (Bld) [Mass fraction] 10.6 % High 4.3-5.6 [facility] Comment on above: Order Comment: Speci men Type: BLOOD SPECIMENOrdering Facility: [facility] Address: [address] [place] [address] Result Comment: [place] Diabetes Association guidelines indicate that patients with HgbA1c in the range 5.7-6.4% are at increased risk for development of diabetes, and intervention by lifestyle modification may be beneficial. HgbA1c greater or equal to 6.5% is considered diagnostic of diabetes. Performed By: #### 5 8410-2 ####[facility] LABORATORYCLIA [id number] [address]#### 22792-3 ####[facility] LABCLIA [id number] [address] [place] ALLIED HEALTHon 01-16-2025 ALLIED HEALTH Normal [facility] CBC panel Auto (Bld)on 01-16 Erythrocyte distribution width (RBC) [Ratio] 16.8 % High 11.5-15.0 [facility] Comment on above: Order Comment: Speci men Type: BLOOD SPECIMENOrdering Facility: [facility] Address: [address] [place] [address] Performed By: #### 5 8410-2 ####[facility] LABORATORYCLIA [id number] [address] Hematocrit (Bld) [Volume fraction] 36.9 % Normal 36.0-46.0 [facility] Comment on above: Order Comment: Speci men Type: BLOOD SPECIMENOrdering Facility: [facility] Address: [address] [place] [address] Performed By: #### 5 8410-2 ####[facility] LABORATORYCLIA [id number] [address] Hemoglobin (Bld) [Mass/Vol] 12.4 g/dL Normal 11.5-15.5 [facility] Comment on above: Order Comment: Speci men Type: BLOOD SPECIMENOrdering Facility: [facility] Address: [address] [place] [address] Performed By: #### 5 8410-2 ####[facility] LABORATORYCLIA [id number] [address] [facility] MCH (RBC) [Entitic mass] 29.7 pg Normal 26.0-34.0 [facility] Comment on above: Order Comment: Speci men Type: BLOOD SPECIMENOrdering Facility: [facility] Address: [address] [place] [address] Performed By: #### 5 8410-2 ####[facility] LABORATORYCLIA [id number] [address] [place] MCHC (RBC) [Mass/Vol] 33.6 g/dL Normal 30.5-36.0 [facility] Comment on above: Order Comment: Speci men Type: BLOOD SPECIMENOrdering Facility: [facility] Address: [address] [place] [address] Performed By: #### 5 8410-2 ####[facility] LABORATORYCLIA [id number] [address] MCV (RBC) [Entitic vol] 88.5 fL Normal 80.0-100.0 [facility] Comment on above: Order Comment: Speci men Type: BLOOD SPECIMENOrdering Facility: [facility] Address: [address] [place] [address] Performed By: #### 5 8410-2 ####[facility] LABORATORYCLIA [id number] [address] STATES OF [facility] Nucleated RBC (Bld) [#/Vol] 10*3/uL Normal <0.01 [facility] Comment on above: Order Comment: Speci men Type: BLOOD SPECIMENOrdering Facility: [facility] Address: [address] [place] [address] Performed By: #### 5 8410-2 ####[facility] LABORATORYCLIA [id number] [address] [place] Platelet mean volume (Bld) [Entitic vol] 13.4 fL High 9.0-12.7 [facility] Comment on above: Order Comment: Speci men Type: BLOOD SPECIMENOrdering Facility: [facility] Address: [address] [place] [address] Performed By: #### 5 8410-2 ####[facility] LABORATORYCLIA [id number] [place] [address] [place] Platelets (Bld) [#/Vol] 210 10*3/uL Normal 150-400 [facility] Comment on above: Order Comment: Speci men Type: BLOOD SPECIMENOrdering Facility: [facility] Address: [address] [place] [address] Result Comment: Plat elet count confirmed by manual review of peripheral blood smear. No clot detected. Performed By: #### 5 8410-2 ####[facility] LABORATORYCLIA [id number] [address] [place] RBC (Bld) [#/Vol] 4.17 10*6/uL Normal 3.90-5.20 [facility] Comment on above: Order Comment: Speci men Type: BLOOD SPECIMENOrdering Facility: [facility] Address: [address] [place] [address] Performed By: #### 5 8410-2 ####[facility] LABORATORYCLIA [id number] [place] [address] [place] WBC (Bld) [#/Vol] 13.14 10*3/uL High 3.70-11.00 [facility] Comment on above: Order Comment: Specbertrand stinson Type: BLOOD SPECIMENOrdering Facility: [facility] Address: [address] [place] [address] Result Comment: Resu lts checked and verified. Performed By: #### 5 8410-2 ####[facility] LABORATORYCLIA [id number] [address] [place] CEA SerPl-mCncon 01-16-2025 Carcinoembryonic Ag [Mass/Vol] 4.6 ng/mL High <3.0 [facility] Comment on above: Order Comment: Dayron stinson Type: BLOOD SPECIMENOrdering Facility: [facility] Address: [address] [place] [address] Result Comment: This is a [employer] assay using chemiluminescence test methodology. Results determined by different manufacturers may not be comparable Performed By: #### 2 4108-3, 2039-03 ####[facility] LABORATORYCLIA [id number] [address] [place] CONSULTon 01-16-2025 CONSULT Normal [facility] CT CHEST WO IVCONon 01-17-20 CT CHEST WO IVCON Normal [facility] Cancer Ag19-9 SerPl-aCncon 0 01-16-2025 Cancer Ag 19-9 Qn 306.0 [arb'U]/mL High <36.0 [facility] Comment on above: Order Comment: Speci men Type: BLOOD SPECIMENOrdering Facility: [facility] Address: [address] [place] [address] Result Comment: Canc er antigen 19-9 test is used as an aid in monitoring response to treatment or recurrence in patients with established pancreatic, hepatobiliary, or gastrointestinal malignancies. Clinical correlation is required.The [place] 19-9 test methodology used is the Electrochemiluminescence Immunoassay by [employer]. Results obtained with different methods or kits cannot be used interchangeably. Performed By: #### 2 4108-3, 2039-03 ####[facility] LABORATORYCLIA [id number] [address] [place] Comprehensive metabolic 2000 panelon 01-16-2025 Albumin [Mass/Vol] 3.8 g/dL Low 3.9-4.9 [facility] Comment on above: Order Comment: Speci men Type: BLOOD SPECIMENOrdering Facility: [facility] Address: [address] [place] [address] Performed By: #### 2 4323-8 ####[facility] LABORATORYCLIA [id number] [address] [place] ALP [Catalytic activity/Vol] 418 U/L High 34-123 [facility] Comment on above: Order Comment: Speci men Type: BLOOD SPECIMENOrdering Facility: [facility] Address: [address] [place] [address] Performed By: #### 2 4323-8 ####[facility] LABORATORYCLIA [id number] [address] [place] [facility] ALT With P-5'-P [Catalytic activity/Vol] 196 U/L High 7-38 [facility] Comment on above: Order Comment: Speci men Type: BLOOD SPECIMENOrdering Facility: [facility] Address: [address] [place] [address] Performed By: #### 2 4323-8 ####[facility] LABORATORYCLIA [id number] [address] [place] Anion gap [Moles/Vol] 17 mmol/L High 8-15 [facility] Comment on above: Order Comment: Speci men Type: BLOOD SPECIMENOrdering Facility: [facility] Address: [address] [place] [address] Performed By: #### 2 4323-8 ####[facility] LABORATORYCLIA [id number] [address] [place] AST With P-5'-P [Catalytic activity/Vol] 99 U/L High 13-35 [facility] Comment on above: Order Comment: Speci men Type: BLOOD SPECIMENOrdering Facility: [facility] Address: [address] [place] [address] Performed By: #### 2 4323-8 ####[facility]ORATORYCLIA [id number] [place] [address] [place] Bilirubin [Mass/Vol] 10.2 mg/dL High 0.2-1.3 [facility] Comment on above: Order Comment: Speci men Type: BLOOD SPECIMENOrdering Facility: [facility] Address: [address] [place] [address] Performed By: #### 2 4323-8 ####[facility] LABORATORYCLIA [id number] [place] [address] [place] Calcium [Mass/Vol] 9.1 mg/dL Normal 8.5-10.2 [facility] Comment on above: Order Comment: Speci men Type: BLOOD SPECIMENOrdering Facility: [facility] Address: [address] [place] [address] Performed By: #### 2 4323-8 ####[facility]ORATORYCLIA [id number] [place] [address] [place] Chloride [Moles/Vol] 93 mmol/L Low 98-107 [facility] Comment on above: Order Comment: Speci men Type: BLOOD SPECIMENOrdering Facility: [facility] Address: [address] [place] [address] Performed By: #### 2 4323-8 ####[facility] LABORATORYCLIA [id number] [place] [address] [place] CO2 [Moles/Vol] 19 mmol/L Low 22-30 [facility] Comment on above: Order Comment: Speci men Type: BLOOD SPECIMENOrdering Facility: [facility] Address: [address] [place] [address] Performed By: #### 2 4323-8 ####[facility] LABORATORYCLIA [id number] [place] [address] [place] Creatinine [Mass/Vol] 0.49 mg/dL Low 0.58-0.96 [facility] Comment on above: Order Comment: Dayron stinson Type: BLOOD SPECIMENOrdering Facility: [facility] Address: [address] [place] [address] Performed By: #### 2 4323-8 ####[facility] LABORATORYCLIA [id number] [address] [place] Creatinine and Glomerular filtration rate.predicted panel (S/P/Bld) 93 mL/min/1.73m??? Normal >=60 [facility] Comment on above: Order Comment: Elinorbertrand stinson Type: BLOOD SPECIMENOrdering Facility: [facility] Address: [address] [place] [address] Result Comment: Kya mated Glomerular Filtration Rate [...] actual GFR. Performed By: #### 2 4323-8 ####[facility] LABORATORYCLIA [id number] [place] [address] [place] Glucose [Mass/Vol] 258 mg/dL High 74-99 [facility] Comment on above: Order Comment: Dayron stinson Type: BLOOD SPECIMENOrdering Facility: [facility] Address: [address] [place] [address] Result Comment: The [place] [employer] (ADA) provides guidance for cutoff [...] Standards of Medical Care in Diabetes 2016, [place] [employer]. Diabetes Care. 2016.39(Suppl 1). Performed By: #### 2 4323-8 ####[facility]ORATORYCLIA [id number] [place] [address] [place] Potassium [Moles/Vol] 3.3 mmol/L Low 3.7-5.1 [facility] Comment on above: Order Comment: Speci men Type: BLOOD SPECIMENOrdering Facility: [facility] Address: [address] [place] [address] Performed By: #### 2 4323-8 ####[facility]ORATORYCLIA [id number] [place] [address] [place] Protein [Mass/Vol] 6.4 g/dL Normal 6.3-8.0 [facility] Comment on above: Order Comment: Speci men Type: BLOOD SPECIMENOrdering Facility: [facility] Address: [address] [place] [address] Performed By: #### 2 4323-8 ####[facility] LABORATORYCLIA [id number] [place] [address] [place] Sodium [Moles/Vol] 129 mmol/L Low 136-144 [facility] Comment on above: Order Comment: Speci men Type: BLOOD SPECIMENOrdering Facility: [facility] Address: [address] [place] [address] Performed By: #### 2 4323-8 ####[facility] LABORATORYCLIA [id number] [place] [address] [place] Urea nitrogen [Mass/Vol] 7 mg/dL Normal 7-21 [facility] Comment on above: Order Comment: Speci men Type: BLOOD SPECIMENOrdering Facility: [facility] Address: [address] [place] [address] Performed By: #### 2 4323-8 ####[facility] LABORATORYCLIA [id number] [place] [address] [place] ANES POSTPROC EVALon 025 ANES POSTPROC EVAL Normal [facility] ANES PRE-OPon 01-15-2025 ANES PRE-OP Normal [facility] CASE MGT INIT ASSESon 2024 CASE MGT INIT ASSES Normal [facility] CBC W Auto Differential pane l (Bld)on 01-15-2025 Basophils (Bld) [#/Vol] 0.04 10*3/uL Normal <0.11 [facility] Comment on above: Order Comment: Speci men Type: BLOOD SPECIMENOrdering Facility: [facility] Address: [address] [place] [address] Performed By: #### 5 7021-8 ####[facility]ORATORYCLIA [id number] [address] [place] Basophils/100 WBC (Bld) 0.8 % Normal [facility] Comment on above: Order Comment: Speci men Type: BLOOD SPECIMENOrdering Facility: [facility] Address: [address] [place] [address] Performed By: #### 5 7021-8 ####[facility] LABORATORYCLIA [id number] [address] [place] Differential cell count method Nom (Bld) Auto Normal [facility] Comment on above: Order Comment: Speci men Type: BLOOD SPECIMENOrdering Facility: [facility] Address: [address] [place] [address] Performed By: #### 5 7021-8 ####[facility]ORATORYCLIA [id number] [address] [place] Eosinophils (Bld) [#/Vol] 0.09 10*3/uL Normal <0.46 [facility] Comment on above: Order Comment: Speci men Type: BLOOD SPECIMENOrdering Facility: [facility] Address: [address] [place] [address] Performed By: #### 5 7021-8 ####[facility]ORATORYCLIA [id number] [address] [place] Eosinophils/100 WBC (Bld) 1.7 % Normal [facility] Comment on above: Order Comment: Speci men Type: BLOOD SPECIMENOrdering Facility: [facility] Address: [address] [place] [address] Performed By: #### 5 7021-8 ####[facility] LABORATORYCLIA [id number] [address] [place] Erythrocyte distribution width (RBC) [Ratio] 17.2 % High 11.5-15.0 [facility] Comment on above: Order Comment: Speci men Type: BLOOD SPECIMENOrdering Facility: [facility] Address: [address] [place] [address] Performed By: #### 5 7021-8 ####[facility] LABORATORYCLIA [id number] [address] [place] Hematocrit (Bld) [Volume fraction] 31.2 % Low 36.0-46.0 [facility] Comment on above: Order Comment: Speci men Type: BLOOD SPECIMENOrdering Facility: [facility] Address: [address] [place] [address] Performed By: #### 5 7021-8 ####[facility] LABORATORYCLIA [id number] [address] [place] Hemoglobin (Bld) [Mass/Vol] 10.9 g/dL Low 11.5-15.5 [facility] Comment on above: Order Comment: Speci men Type: BLOOD SPECIMENOrdering Facility: [facility] Address: [address] [place] [address] Performed By: #### 5 7021-8 ####[facility] LABORATORYCLIA [id number] [address] [place] Immature granulocytes (Bld) [#/Vol] 0.03 10*3/uL Normal <0.10 [facility] Comment on above: Order Comment: Speci men Type: BLOOD SPECIMENOrdering Facility: [facility] Address: [address] [place] [address] Performed By: #### 5 7021-8 ####[facility] LABORATORYCLIA [id number] [address] [place] Immature granulocytes/100 WBC (Bld) 0.6 % Normal [facility] Comment on above: Order Comment: Speci men Type: BLOOD SPECIMENOrdering Facility: [facility] Address: [address] [place] [address] Performed By: #### 5 7021-8 ####[facility] LABORATORYCLIA [id number] [address] Lymphocytes (Bld) [#/Vol] 0.98 10*3/uL Low 1.00-4.00 [facility] Comment on above: Order Comment: Speci men Type: BLOOD SPECIMENOrdering Facility: [facility] Address: [address] [place] [address] Performed By: #### 5 7021-8 ####[facility] LABORATORYCLIA [id number] [address] Lymphocytes/100 WBC (Bld) 18.6 % Normal [facility] Comment on above: Order Comment: Speci men Type: BLOOD SPECIMENOrdering Facility: [facility] Address: [address] [place] [address] Performed By: #### 5 7021-8 ####[facility] LABORATORYCLIA [id number] [address] [facility] MCH (RBC) [Entitic mass] 30.8 pg Normal 26.0-34.0 [facility] Comment on above: Order Comment: Speci men Type: BLOOD SPECIMENOrdering Facility: [facility] Address: [address] [place] [address] Performed By: #### 5 7021-8 ####[facility] LABORATORYCLIA [id number] [address] [place] MCHC (RBC) [Mass/Vol] 34.9 g/dL Normal 30.5-36.0 [facility] Comment on above: Order Comment: Speci men Type: BLOOD SPECIMENOrdering Facility: [facility] Address: [address] [place] [address] Performed By: #### 5 7021-8 ####[facility] LABORATORYCLIA [id number] [place] [address] [place] MCV (RBC) [Entitic vol] 88.1 fL Normal 80.0-100.0 [facility] Comment on above: Order Comment: Speci men Type: BLOOD SPECIMENOrdering Facility: [facility] Address: [address] [place] [address] Performed By: #### 5 7021-8 ####[facility]ORATORYCLIA [id number] [place] [address] [place] Monocytes (Bld) [#/Vol] 0.65 10*3/uL Normal <0.87 [facility] Comment on above: Order Comment: Speci men Type: BLOOD SPECIMENOrdering Facility: [facility] Address: [address] [place] [address] Performed By: #### 5 7021-8 ####[facility] LABORATORYCLIA [id number] [address] [place] Monocytes/100 WBC (Bld) 12.3 % Normal [facility] Comment on above: Order Comment: Speci men Type: BLOOD SPECIMENOrdering Facility: [facility] Address: [address] [place] [address] Performed By: #### 5 7021-8 ####[facility] LABORATORYCLIA [id number] [address] [place] Neutrophils (Bld) [#/Vol] 3.48 10*3/uL Normal 1.45-7.50 [facility] Comment on above: Order Comment: Speci men Type: BLOOD SPECIMENOrdering Facility: [facility] Address: [address] [place] [address] Performed By: #### 5 7021-8 ####[facility]ORATORYCLIA [id number] [address] [place] Neutrophils/100 WBC (Bld) 66.0 % Normal [facility] Comment on above: Order Comment: Speci men Type: BLOOD SPECIMENOrdering Facility: [facility] Address: [address] [place] [address] Performed By: #### 5 7021-8 ####[facility]ORATORYCLIA [id number] [address] [place] Nucleated RBC (Bld) [#/Vol] 10*3/uL Normal <0.01 [facility] Comment on above: Order Comment: Speci men Type: BLOOD SPECIMENOrdering Facility: [facility] Address: [address] [place] [address] Performed By: #### 5 7021-8 ####[facility] LABORATORYCLIA [id number] [address] [place] Nucleated RBC/100 WBC (Bld) [Ratio] 0.0 /100 WBC Normal [facility] Comment on above: Order Comment: Speci men Type: BLOOD SPECIMENOrdering Facility: [facility] Address: [address] [place] [address] Performed By: #### 5 7021-8 ####[facility] LABORATORYCLIA [id number] [address] [facility] Platelet mean volume (Bld) [Entitic vol] Normal [facility] Comment on above: Order Comment: Speci men Type: BLOOD SPECIMENOrdering Facility: [facility] Address: [address] [place] [address] Result Comment: Unab le to Report. Performed By: #### 5 7021-8 ####[facility] LABORATORYCLIA [id number] [address] [place] Platelets (Bld) [#/Vol] 168 10*3/uL Normal 150-400 [facility] Comment on above: Order Comment: Speci men Type: BLOOD SPECIMENOrdering Facility: [facility] Address: [address] [place] [address] Result Comment: No c lot detected. Performed By: #### 5 7021-8 ####[facility] LABORATORYCLIA [id number] [address] [place] RBC (Bld) [#/Vol] 3.54 10*6/uL Low 3.90-5.20 [facility] Comment on above: Order Comment: Speci men Type: BLOOD SPECIMENOrdering Facility: [facility] Address: [address] [place] [address] Performed By: #### 5 7021-8 ####[facility] LABORATORYCLIA [id number] [address] [place] WBC (Bld) [#/Vol] 5.27 10*3/uL Normal 3.70-11.00 [facility] Comment on above: Order Comment: Speci men Type: BLOOD SPECIMENOrdering Facility: [facility] Address: [address] [place] [address] Performed By: #### 5 7021-8 ####[facility] LABORATORYCLIA [id number] [address] [place] CONSULTon 01-15-2025 CONSULT Normal [facility] Comprehensive metabolic 2000 panelon 01-15-2025 Albumin [Mass/Vol] 3.5 g/dL Low 3.9-4.9 [facility] Comment on above: Order Comment: Speci men Type: BLOOD SPECIMENOrdering Facility: [facility] Address: [address] [place] [address] Performed By: #### 2 4323-8, 23844-1 ####[facility] LABORATORYCLIA [id number] [place] [address] [place] ALP [Catalytic activity/Vol] 393 U/L High 34-123 [facility] Comment on above: Order Comment: Speci men Type: BLOOD SPECIMENOrdering Facility: [facility] Address: [address] [place] [address] Performed By: #### 2 4323-8, 92740-4 ####[facility] LABORATORYCLIA [id number] [place] [id number] [place] ALT With P-5'-P [Catalytic activity/Vol] Normal [facility] Comment on above: Order Comment: Speci men Type: BLOOD SPECIMENOrdering Facility: [facility] Address: [address] [place] [address] Result Comment: Unab le to assay due to interference from hemolysis. Suggest reorder as clinically indicated. Performed By: #### 2 4323-8, ####[facility] LABORATORYCLIA [id number] [place] [address] [place] Anion gap [Moles/Vol] 16 mmol/L High 8-15 [facility] Comment on above: Order Comment: Speci men Type: BLOOD SPECIMENOrdering Facility: [facility] Address: [address] [place] [address] Performed By: #### 2 4328, ####[facility] LABORATORYCLIA [id number] [place] [address] [place] AST With P-5'-P [Catalytic activity/Vol] Normal [facility] Comment on above: Order Comment: Speci men Type: BLOOD SPECIMENOrdering Facility: [facility] Address: [address] [place] [address] Result Comment: Unab le to assay due to interference from hemolysis. Suggest reorder as clinically indicated. Performed By: #### 2 4328, ####[facility] LABORATORYCLIA [id number] [place] [address] [place] Bilirubin [Mass/Vol] 16.6 mg/dL High 0.2-1.3 [facility] Comment on above: Order Comment: Speci men Type: BLOOD SPECIMENOrdering Facility: [facility] Address: [address] [place] [address] Performed By: #### 2 4328, ####[facility] LABORATORYCLIA [id number] [address] [place] Calcium [Mass/Vol] 9.2 mg/dL Normal 8.5-10.2 [facility] Comment on above: Order Comment: Speci men Type: BLOOD SPECIMENOrdering Facility: [facility] Address: [address] [place] [address] Performed By: #### 2 4323-8, ####[facility] LABORATORYCLIA [id number] [place] [address] [place] Chloride [Moles/Vol] 102 mmol/L Normal 98-107 [facility] Comment on above: Order Comment: Speci men Type: BLOOD SPECIMENOrdering Facility: [facility] Address: [address] [place] [address] Performed By: #### 2 4323-8, ####[facility] LABORATORYCLIA [id number] [address] CO2 [Moles/Vol] 16 mmol/L Low 22-30 [facility] Comment on above: Order Comment: Speci men Type: BLOOD SPECIMENOrdering Facility: [facility] Address: [address] [place] [address] Performed By: #### 2 4328, ####[facility] LABORATORYCLIA [id number] [address] Creatinine [Mass/Vol] 0.47 mg/dL Low 0.58-0.96 [facility] Comment on above: Order Comment: Speci men Type: BLOOD SPECIMENOrdering Facility: [facility] Address: [address] [place] [address] Performed By: #### 2 4323-8, ####[facility] LABORATORYCLIA [id number] [address] Creatinine and Glomerular filtration rate.predicted panel (S/P/Bld) 94 mL/min/1.73m??? Normal >=60 [facility] Comment on above: Order Comment: Speci men Type: BLOOD SPECIMENOrdering Facility: [facility] Address: [address] [place] [address] Result Comment: Kya mated Glomerular Filtration Rate [...] actual GFR. Performed By: #### 2 4323-8, ####[facility] LABORATORYCLIA [id number] [place] [address] [place] Glucose [Mass/Vol] 225 mg/dL High 74-99 [facility] Comment on above: Order Comment: Speci men Type: BLOOD SPECIMENOrdering Facility: [facility] Address: [address] [place] [address] Result Comment: The [place] [employer] (ADA) provides guidance for cutoff [...] Standards of Medical Care in Diabetes 2016, [place] [employer]. Diabetes Care. 2016.39(Suppl 1). Performed By: #### 2 4328, ####[facility] LABORATORYCLIA [id number] [place] [address] [place] Potassium [Moles/Vol] Normal [facility] Comment on above: Order Comment: Dayron stinson Type: BLOOD SPECIMENOrdering Facility: [facility] Address: [address] [place] [address] Result Comment: Unab le to assay due to interference from hemolysis. Suggest reorder as clinically indicated. Performed By: #### 2 4328, ####[facility] LABORATORYCLIA [id number] [place] [address] [place] Protein [Mass/Vol] Normal [facility] Comment on above: Order Comment: Speci shantell Type: BLOOD SPECIMENOrdering Facility: [facility] Address: [address] [place] [address] Result Comment: Unab le to assay due to interference from icterus. Performed By: #### 2 4323-8, ####[facility] LABORATORYCLIA [id number] [place] [address] [place] Sodium [Moles/Vol] 134 mmol/L Low 136-144 [facility] Comment on above: Order Comment: Speci men Type: BLOOD SPECIMENOrdering Facility: [facility] Address: [address] [place] [address] Performed By: #### 2 4323-8, 78224-9 ####[facility] LABORATORYCLIA [id number] [address] [place] Urea nitrogen [Mass/Vol] 11 mg/dL Normal 05-17 [facility] Comment on above: Order Comment: Speci men Type: BLOOD SPECIMENOrdering Facility: [facility] Address: [address] [place] [address] Performed By: #### 2 4323-8, 28739-6 ####[facility] LABORATORYCLIA [id number] [place] [id number] [place] ECG COMPLETEon 01-15-2025 ECG COMPLETE Normal [facility] ERCPon 01-15-2025 ERCP Normal [facility] HISTORY PHYSICALon HISTORY PHYSICAL Normal [facility] Magnesium SerPl-mCncon 01-15 Magnesium [Mass/Vol] 2.0 mg/dL Normal 1.7-2.3 [facility] Comment on above: Order Comment: Speci men Type: BLOOD SPECIMENOrdering Facility: [facility] Address: [address] [place] [address] Performed By: #### 2 4323-8, 54694-8 ####[facility] LABORATORYCLIA [id number] [place] [address] [place] PT panel Coag (PPP)on 2024 INR Coag (PPP) [Relative time] 1.0 {INR} Normal 0.9-1.3 [facility] Comment on above: Order Comment: Speci men Type: BLOOD SPECIMENOrdering Facility: [facility] Address: [address] [place] [address] Result Comment: Aria min K Antagonist (VKA) Therapeutic Range: INR 2 to 3 (Target INR of 2.5)Note: For patients treated with VKA drugs, such as warfarin, the [employer] 2012 Guideline recommends [...] al. Chest 2012, 141:7S-47SNishimura RA, et al. [facility] 2017, 70: 252-289 Performed By: #### 3 4528-0 ####[facility] LABORATORYCLIA [id number] [place] [address] [place] PT Coag (PPP) [Time] 11.3 s Normal 9.7-13.0 [facility] Comment on above: Order Comment: Dayron stisnon Type: BLOOD SPECIMENOrdering Facility: [facility] Address: [address] [place] [address] Performed By: #### 3 4528-0 ####[facility] LABORATORYCLIA [id number] [address] [place] Pathology biopsy report Jimenez (Tiss)on 01-15-2025 AP DISCLAIMER Normal [facility] Comment on above: Order Comment: Dayron stinson Type: TISSUE SPECIMENOrdering Facility: [facility] Address: [address] [place] [address] Result Comment: Christina Mckeon Test (LDT) Disclaimer:Performance characteristics of immunohistochemical, immunofluorescent, and chromogenic in-situ hybridization tests have been determined by the performing laboratory within [facility]'s [facility] Pathology and Laboratory Medicine Department ([facility], [facility] [place] [place], [facility], [facility], [facility], [facility], or [facility]) in a manner consistent with CLIA requirements. One or more of these tests may not have been cleared or approved by the FDA. [facility] is regulated under CLIA as qualified to perform high-complexity testing. These tests are used for clinical purposes. These should not be regarded as investigational or for research. Positive and negative controls stain appropriately. Performed By: #### 6 6121-5 ####[facility] [id number] [address] CASE REPORT Normal [facility] Comment on above: Order Comment: Speci men Type: TISSUE SPECIMENOrdering Facility: [facility] Address: [address] [place] [address] Result Comment: Surg [facility] Pathology Report Case: [id number] Provider: Adrián Sandhu MD Collected: 01/15/2025 12:41 PMOrdering Location: [facility] Received: 01/18/2025 09:31 AMPathologist: Orestes aZrate MDSpecimen: Pancreas, Biopsy, pancreas mass via FNA Performed By: #### 6 6121-5 ####[facility] [id number] [address] DIAGNOSIS COMMENT The case was reviewe d by Dr. Rachel Gallardo who agrees with the diagnosis. Normal [facility] Comment on above: Order Comment: Speci men Type: TISSUE SPECIMENOrdering Facility: [facility] Address: [address] [place] [address] Performed By: #### 6 6121-5 ####[facility] [id number] [address] FINAL DIAGNOSIS Normal [facility] Comment on above: Order Comment: Speci men Type: TISSUE SPECIMENOrdering Facility: [facility] Address: [address] [place] [address] Result Comment: Kush. Nicole hartreas, mass, biopsy:- Adenocarcinoma (see comment). at 1408 EDT Performed By: #### 6 6121-5 ####[facility] LABORATORYIA [id number] [address] FINAL PERFORMING LAB Normal [facility] Comment on above: Order Comment: Speci men Type: TISSUE SPECIMENOrdering Facility: [facility] Address: [address] [place] [address] Result Comment: Diag nostic interpretation performed at: [facility] [place] [place] [facility], [address] [place] [address] CLIA# [id number] Director: Keenan Multani MD Performed By: #### 6 6121-5 ####[facility] LABORATORYCLIA [id number] [address] GROSS DESCRIPTION Normal [facility] Comment on above: Order Comment: Speci men Type: TISSUE SPECIMENOrdering Facility: [facility] Address: [address] [place] [address] Result Comment: Dina golden, BiopsyReceived in formalin labeled pancreas massmultiple segments of cylindrical tissue aggregating to 3.0 x 2.0 x 1.0 cm, davalos-red and of a soft consistency. Totally submitted in one cassette.Gross examination performed at [facility], [address] [place], [place] [address]ARH January 18, 2025 12:19 PM Performed By: #### 6 6121-5 ####[facility] LABORATORYCLIA [id number] [address] [place] XR ERCP READ ONLYon 01-16-20 25 XR ERCP READ ONLY Normal [facility] Bedside Glucoseon 01-14-2025 FINGERSTICK GLU 417 mg/dL High 74-106 [facility] Comment on above: Result Comment: JILLIAN GEMENT OF PATIENT CARE PER NURSING PROTOCOL Performed By: #### L 501.080 ####[facility] [address] [facility] [address] FINGERSTICK GLU 282 mg/dL High 74-106 [facility] Comment on above: Result Comment: JILLIAN GEMENT OF PATIENT CARE PER NURSING PROTOCOL Performed By: #### L 501.080 ####[facility] [address] [place], [address] FINGERSTICK GLU 284 mg/dL High [address] [place] [address] Comment on above: Result Comment: JILLIAN GEMENT OF PATIENT CARE PER NURSING PROTOCOL Performed By: #### L 501.080 ####[facility] [address] [place], [address] FINGERSTICK GLU 241 mg/dL [address] Comment on above: Result Comment: JILLIAN GEMENT OF PATIENT CARE PER NURSING PROTOCOL Performed By: #### L 501.080 #### [facility] Laboratory [address] [place], [address] Gl[facility] at [facility] deOrdered By: Jose Wu on 01-14-2025 Bedside Glucose ([facility] Panel) 417 mg/dL [address] Comment on above: MANAGEMENT OF PATIEN T CARE PER NURSING PROTOCOL Bedside Glucoseon 01-13-2025 FINGERSTICK GLU 314 mg/dL [address] Comment on above: Result Comment: JILLIAN GEMENT OF PATIENT CARE PER NURSING PROTOCOL Performed By: #### L 501.080 #### [facility] [address] [place], [address] FINGERSTICK GLU 356 mg/dL [address] Comment on above: Result Comment: JILLIAN GEMENT OF PATIENT CARE PER NURSING PROTOCOL Performed By: #### L 501.080 #### [facility] [address] [place], [address] FINGERSTICK GLU 302 mg/dL [address] Comment on above: Result Comment: JILLIAN GEMENT OF PATIENT CARE PER NURSING PROTOCOL Performed By: #### L 501.080 #### [facility] [address] [place], [address] FINGERSTICK GLU 278 mg/dL [address] Comment on above: Result Comment: JILLIAN GEMENT OF PATIENT CARE PER NURSING PROTOCOL Performed By: #### L 501.080 #### [facility] [address] [place], [place], [address] 12 Lead EKGon 01-12-2025 12 Lead EKG [facility] Cardiovascular Services [address] [place] [address] 12 Lead EKG 01/12/25 0442 MR#: [id number] Acct: [id number] Name: TELMA TINEO Rep #: [id number] : 1940 84 From: Zachary Sarabia MD [...] normal variant ( R in aVL , Potter product ) ST T wave abnormality, consider anterior ischemia Abnormal ECG When compared with ECG of 25-Jun-2024 15:29, QT has lengthened Confirmed by ZACHARY SARABIA MD ([id number]), editor city [place] ([id number]) on 01/12/2025 8:23:00 AM Referred By: DENNIS Confirmed By: ZACHARY SARABIA MD 01/12/25 0823 Date Zachary Sarabia MD CC: Dr. Babatunde Worthington MD; Dr. Jose Wu DO; Dr. Henok Martinez MD Signed Normal [facility] Bedside Glucoseon 01-12-2025 FINGERSTICK GLU 397 mg/dL High 74-106 [facility] Comment on above: Result Comment: JILLIAN GEMENT OF PATIENT CARE PER NURSING PROTOCOL Performed By: #### L 501.080 #### [facility] Laboratory [address] [place], [address] FINGERSTICK GLU 214 mg/dL High 74-106 [facility] Comment on above: Result Comment: JILLIAN GEMENT OF PATIENT CARE PER NURSING PROTOCOL Performed By: #### L 501.080 #### [facility] [address] [place], [address] FINGERSTICK GLU 258 mg/dL High 74-106 [facility] Comment on above: Result Comment: JILLIAN GEMENT OF PATIENT CARE PER NURSING PROTOCOL Performed By: #### L 501.080 #### [facility] [address] [place], [place], [address] CA 19-9 Serial Monitoron CA 19-9 355 U/mL High 0-35 [facility] Comment on above: Result Comment: [employer] Electrochemiluminescence Immunoassay (ECLIA) Values obtained with different assay methods or kits cannot be used interchangeably. Results cannot be interpreted as absolute evidence of the presence or absence of malignant disease. Performed at: [facility] [id number] Molding Sander: Barry Hart PhD, Phone: [phone] Performed By: #### L 501.080 #### [facility] [address] [place], [place], [address] ERCP Biliary/Pancreason 12-26 ERCP Biliary/Pancreas [facility] Imaging Services [address] [place], [place] [address] ERCP Biliary/Pancreas MR#: [id number] Acct: [id number] Name: TELMA TINEO Rep #: [id number] : 1940 F 84 From: Raj farley MD PCP: Dr. Henok Martinez MD Status: ADM IN Study: ERCP Biliary/Pancreas Date of Exam: 01/12/25 Exam# [id number] Ordering Dr: Mohit Brown DO PROCEDURE: ERCP BILIARY/PANCREAS 01/12/2025 REASON FOR EXAM: PAIN. ERCP WITH SPY? TECHNIQUE: Fluoroscopic services provided for ERCP. Fluoroscopic time: 110.7 seconds 22.5 mGy 3 images were submitted. COMPARISON: None. FINDINGS: The therapist performed the ERCP. Fluoroscopic imaging provided. RAD/ERCP Biliary/Pancreas IMPRESSION: Fluoroscopic services provided for ERCP. Reading Location: [place] [address] CC: Dr. Henok Martinez MD; Mohit Brown DO Wallpaper Consultant: Signed Normal [facility] ERCP Reporton 01-12-2025 ERCP Report [facility] Medical Records Department [address] [place] [address] ERCP Report MR#: [id number] Acct: [id number] Name: TELMA TINEO Rep #: [id number] : 1940 84 From: Mohit Brown DO [...] hour 8 minutes 42 seconds Findings: The manual winder film was normal. The bile duct could not be cannulated with the short-nosed traction sphincterotome. No biopsies or other specimens were collected for this exam. Impression: - No specimens collected. Procedure Code(s): --- Professional --- 63796, Esophagogastroduodenoscopy , flexible, transoral; diagnostic, including collection of specimen(s) by brushing or washing, when performed (separate procedure) CPT copyright 2021 [employer]. All rights reserved. The codes documented in this report are preliminary and upon finishing technician review may be revised to meet current compliance requirements. Mohit Brown DO 01/12/2025 1:41:52 PM This report has been signed electronically. Number of Addenda: 0 Note Initiated On: 01/12/2025 11:51 AM 01/12/25 1342 Date Mohit Brown DO Cosigner Signature: Date (if indicated) CC: Dr. Henok Martinez MD; Mohit Brown DO Date Dictated: 01/12/25 1151 Date Transcribed: Wallpaper Consultant: RF Signed Normal [facility] Electrocardiogram reportOrde red By: Zachary Sarabia on 01-12-2025 EKG study [facility] Cardiovascular Services [address] [place] [address] 12 Lead EKG 01/12/25 0442 MR#: [id number] Acct: [id number] Name: TELMA TINEO Rep #:[id number] : 1940 84 From: Zachary Sarabia MD Attending Dr: Dr. Jose Wu DO Status: ADM IN Ordering Dr: Babatunde Worthington MD Date: 01/12/25 Location: [place]3 Sex: F H Admitted: 01/10/25 Test Reason [...] normal variant ( R in aVL , Potter product ) ST & T wave abnormality, consider anterior ischemia Abnormal ECG When compared with ECG of 25-Jun-2024 15:29, QT has lengthened Confirmed by CORNELL HELMS, ZACHARY ([id number]), editor city [place] ([id number]) on 01/12/2025 8:23:00 AM Referred By: DENNIS Confirmed By: ZACHARY SARABIA MD 01/12/25 0823 Date _ Zachary Sarabia MD CC: Dr. Babatunde Worthington MD; Dr. Jose Wu DO; Dr. Henok Martinez MD ~ Signed [facility] Work Phone: MR/POSTOP.ANEon 01-12-2025 MR/POSTOP.[facility] Medical Records Department [address] [place] [address] Anesthesia Postop Eval I 01/12/25 1348 MR#: [id number] Acct: [id number] Name: TELMA TINEO Rep #: [id number] : 1940 84 From: Jr Kamara CRNA PCP: Dr. Henok Martinez MD Status:ADM IN Y Race: H Location: [place] [address]1 Anesthesia: Postop Eval I Current Vital Signs Temperature: 97.7 F Pulse Rate: 81 Blood Pressure: 143/77 Respiratory Rate: 16 Pulse Ox: 96 Assessment Airway patent: Yes Spontaneous unlabored respirations: Yes nausea: No Vomiting: No Anesthesia Complication: No Fluid Hydration Crystalloid volume administer (ml): 1,000 Total IV fluid infused: 1,000 Progress Note Anesthesia document: Postop Eval 1 completed: Yes 01/12/25 1348 Date Jr Kamara PERSONAL LINES ADVISOR Cosigner Signature: Date CC: Signed Normal [facility] MR/TAVBABAL2pu 01-12-2025 /[facility]ST[facility] Medical Records Department [address] [place] [address] Anesthesia Postop Eval II 01/12/25 1408 MR#: [id number] Acct: [id number] Name: TELMA TINEO Rep #: [id number] : 1940 84 From: José Escobar MD PCP: Dr. Henok Martinez MD Status:ADM IN Y Race: H Location: [facility] [id number] Anesthesia Postop Eval I Sum Postop Eval Completion status Anesthesia document: Postop Eval 1 completed: Yes Anesthesia Postop Eval I Summary Anesthesia Postop Eval I Summary: Anesthesia Postop Eval I: Assessment Summary Airway patent Yes 01/12/25 13:48 PERSONAL LINES ADVISOR.TNES Spontaneous unlabored Yes 01/12/25 13:48 PERSONAL LINES ADVISOR.TNES respirations Mental status nausea No 01/12/25 13:48 PERSONAL LINES ADVISOR.TNES Vomiting No 01/12/25 13:48 PERSONAL LINES ADVISOR.TNES Anesthesia Postop Eval I: Fluid Summary Crystalloid volume administer 1,000 01/12/25 13:48 PERSONAL LINES ADVISOR.TNES (ml) Colloids volume administered ( ml) Blood Product volume administered (ml) Total IV fluid infused 1,000 01/12/25 13:48 PERSONAL LINES ADVISOR.TNES Anesthesia Postop Eval I: Summary Notes Anesthesia Complication No 01/12/25 13:48 PERSONAL LINES ADVISOR.TNES Anesthesia Complication Comment: Post-operative progress note Anesthesia: Postop Eval II Evaluation Mental status: Awake Pain Level: 0 nausea: No Vomiting: No Complications Anesthesia Complication: No 01/12/25 1408 Date José Macdonaldigner Signature: Date CC: Signed Normal [facility] Absolute neutrophil countOrd ered By: Keenan Celeste on 01-11-2025 Neutrophils (Bld) [#/Vol] 3.1 10*3/uL 2.0-7.7 [facility] Anion gap in Serum or Plasma Ordered By: Keenan Celeste on 01-11-2025 Anion gap [Moles/Vol] 13 mmol/L 5- [facility] BUN/creatinine ratioOrdered By: Keenan Celeste on 01-11-2025 Urea nitrogen/Creatinine [Mass ratio] 10.8 mg/mg 10- [facility] Comment on above: Previous reported re sult: 10.0 RATIOEdited by: AUTOINNaveen on 01/11/25:1445 AMENDED REPORT 01/11/25 144 BUN/CRE previously reported as: 10.0 RATIO Basophil percentageOrdered B y: Keenan Celeste on 01-11-2025 Basophils/100 WBC (Bld) 0.6 % 0-1 [facility] Bedside Glucoseon 01-11-2025 FINGERSTICK GLU 411 mg/dL High 74-106 [facility] Comment on above: Result Comment: JILLIAN GEMENT OF PATIENT CARE PER NURSING PROTOCOL Performed By: #### L 501.080 #### [facility] Laboratory [address] [place], [address] FINGERSTICK GLU 414 mg/dL High 74-106 [facility] Comment on above: Result Comment: JILLIAN GEMENT OF PATIENT CARE PER NURSING PROTOCOL Performed By: #### L 501.080 #### [facility] [address] [place], [address] FINGERSTICK GLU 269 mg/dL High 74-106 [facility] Comment on above: Result Comment: JILLIAN GEMENT OF PATIENT CARE PER NURSING PROTOCOL Performed By: #### L 501.080 #### [facility] [address] [place], [address] Bilirubin, totalOrdered By: Keenan Celeste on 01-11-2025 Bilirubin [Mass/Vol] 10.20 mg/dL High 0.00-1.30 [facility] Comment on above: Previous reported re sult: 10.00 mg/dLEdited by: BRIDGER on 01/11/25:1445 AMENDED REPORT 01/11/25 1445 T BILI previously reported as: 10.00 H mg/dL CBC W/Diff, Automatedon 12-26 Absolute Lymph 1.14 X10 3/uL Normal 0.83-4.51 [facility] Comment on above: Performed By: #### L 501.080 #### [facility] [address] [place], [address] Absolute Neut 3.1 X10 3/uL Normal 2.0-7.7 [facility] Comment on above: Performed By: #### L 501.080 #### [facility] [address] [place], [address] Basophils/100 WBC (Bld) 0.6 % Normal 0-1 [facility] Comment on above: Performed By: #### L 501.080 #### [facility] [address] [place], [address] Eosinophils/100 WBC (Bld) 2.4 % Normal 0-5 [facility] Comment on above: Performed By: #### L 501.080 #### [facility] [address] [place], [address] Erythrocyte distribution width (RBC) [Ratio] 15.1 % High 11.6-14.6 [facility] Comment on above: Performed By: #### L 501.080 #### [facility] [address] [place], [address] Hematocrit (Bld) [Volume fraction] 34.2 % Low 37-47 [facility] Comment on above: Performed By: #### L 501.080 #### [facility] [address] [place], [address] Hemoglobin (Bld) [Mass/Vol] 11.7 g/dL Low 12.0-15.0 [facility] Comment on above: Performed By: #### L 501.080 #### [facility] [address] [place], [address] IG% 0.400 Normal 0.0-0.9 [facility] Comment on above: Result Comment: IG% - Immature Granulocytes (promyelocytes, myelocytes and metamyelocytes) > 1% indicates that a LEFT SHIFT is Present. Performed By: #### L 501.080 #### [facility] [address] [place], [address] Lymphocytes/100 WBC (Bld) 22.9 % Normal 19-41 [facility] Comment on above: Performed By: #### L 501.080 #### [facility] [address] [place], [address] MCH (RBC) [Entitic mass] 29.7 pg Normal 27.0-32.0 [facility] Comment on above: Performed By: #### L 501.080 #### [facility] [address] [place], [address] MCHC (RBC) [Mass/Vol] 34.2 g/dL Normal 32-36 [facility] Comment on above: Performed By: #### L 501.080 #### [facility] [address] [place], [address] MCV (RBC) [Entitic vol] 86.8 fL Normal 81-99 [facility] Comment on above: Performed By: #### L 501.080 #### [facility] [address] [place], [address] Monocytes/100 WBC (Bld) 11.6 % High 0-10 [facility] Comment on above: Performed By: #### L 501.080 #### [facility] [address] [place], [address] Neutrophils/100 WBC (Bld) 62.1 % Normal 47-70 [facility] Comment on above: Performed By: #### L 501.080 #### [facility] [address] [place], [address] Nucleated RBC (Bld) [#/Vol] 0 10*3/uL Normal 0-5 [facility] Comment on above: Performed By: #### L 501.080 #### [facility] [address] [place], [address] Platelet mean volume (Bld) [Entitic vol] 13.7 fL High 6.2-12.0 [facility] Comment on above: Performed By: #### L 501.080 #### [facility] [address] [place], [address] Platelets (Bld) [#/Vol] 169 10*3/uL Normal 150-450 [facility] Comment on above: Performed By: #### L 501.080 #### [facility] [address] [place], [address] RBC (Bld) [#/Vol] 3.94 10*6/uL Low 4.2-5.4 [facility] Comment on above: Performed By: #### L 501.080 #### [facility] [address] [place], [address] RDW SD 47.8 fl High 35.1-43.9 [facility] Comment on above: Performed By: #### L 501.080 #### [facility] [address] [place], [address] WBC (Bld) [#/Vol] 5.0 10*3/uL Normal 4.4-11.0 [facility] Comment on above: Performed By: #### L 501.080 #### [facility] [address] [place], [address] Carbon dioxide, total [Moles /volume] in Central venous bloodOrdered By: Keenan Celeste on 01-11-2025 CO2 [Moles/Vol] 20.0 mmol/L Low 21.0-32.0 [facility] Comment on above: Previous reported re sult: 19.6 mmol/LEdited by: AUTOINS on 01/11/25:1445 AMENDED REPORT 01/11/25 1445 CO2 previously reported as: 19.6 L mmol/L Chloride assayOrdered By: Jose Celeste on 01-11-2025 Chloride [Moles/Vol] 103 mmol/L 98-108 [facility] Comment on above: Previous reported re sult: 104 mmol/LEdited by: AUTOINS on 01/11/25:1445 AMENDED REPORT 01/11/25 1445 CL previously reported as: 104 mmol/L Comprehensive Metabolic Prof ilon 01-11-2025 Albumin [Mass/Vol] 3.9 g/dL Normal 3.4-4.8 [facility] Comment on above: Result Comment: AMENDED REPORT 01/11/251444 ALB previously reported as: 3.7 g/dL Performed By: #### L 501.5425, L500.2500, L100.0100 #### [facility] [address] [place], [address] Albumin/Globulin [Mass ratio] 1.8 {ratio} Normal 0.9-2.4 [facility] Comment on above: Result Comment: AMENDED REPORT 01/11/251444 A/G previously reported as: 1.5 RATIO Performed By: #### L 501.5425, L500.2500, L100.0100 #### [facility] [address] [place], [address] ALK PHOS 366 U/L High 35-104 [facility] Comment on above: Result Comment: AMENDED REPORT 01/11/251444 ALK P previously reported as: 349 H U/L Performed By: #### L 501.5425, L500.2500, L100.0100 #### [facility] [address] [place], [address] ALT [Catalytic activity/Vol] 343 U/L High <=34 [facility] Comment on above: Result Comment: AMENDED REPORT 01/11/251444 ALT previously reported as: 333 H U/L Performed By: #### L 501.5425, L500.2500, L100.0100 #### [facility] [address] [place], [address] AST [Catalytic activity/Vol] 247 U/L High <=31 [facility] Comment on above: Result Comment: AMENDED REPORT 01/11/251444 AST previously reported as: 240 H U/L Performed By: #### L 501.5425, L500.2500, L100.0100 #### [facility] [address] [place], [address] Bilirubin [Mass/Vol] 10.20 mg/dL High 0.00-1.30 [facility] Comment on above: Result Comment: AMENDED REPORT 01/11/251444 T BILI previously reported as: 10.00 H mg/dL Performed By: #### L 501.5425, L500.2500, L100.0100 #### [facility] [address] [place], [address] BUN/CRE 10.8 RATIO Normal 10-20 [facility] Comment on above: Result Comment: AMENDED REPORT 01/11/251444 BUN/CRE previously reported as: 10.0 RATIO Performed By: #### L 501.5425, L500.2500, L100.0100 #### [facility] [address] [place], [address] Calcium [Mass/Vol] 9.5 mg/dL Normal 7.6-11.0 [facility] Comment on above: Result Comment: AMENDED REPORT 01/11/251444 CA previously reported as: 9.7 mg/dL Performed By: #### L 501.5425, L500.2500, L100.0100 #### [facility] [address] [place], [address] Chloride [Moles/Vol] 103 mmol/L Normal 98-108 [facility] Comment on above: Result Comment: AMENDED REPORT 01/11/251444 CL previously reported as: 104 mmol/L Performed By: #### L 501.5425, L500.2500, L100.0100 #### [facility] [address] [place], [address] CO2 [Moles/Vol] 20.0 mmol/L Low 21.0-32.0 [facility] Comment on above: Result Comment: AMENDED REPORT 01/11/251444 CO2 previously reported as: 19.6 L mmol/L Performed By: #### L 501.5425, L500.2500, L100.0100 #### [facility] [address] [place], [address] Creatinine [Mass/Vol] 0.74 mg/dL Normal 0.70-1.20 [facility] Comment on above: Result Comment: Icte cristina present, Results may be affected. AMENDED REPORT 01/11/251444 CREAT,SERUM previously reported as: 0.73 mg/dL Icterus present, Results may be affected. Performed By: #### L 501.5425, L500.2500, L100.0100 #### [facility] [address] [place], [address] ECRCL 44.71 ml/min Low 50-250 [facility] Comment on above: Performed By: #### L 501.5425, L500.2500, L100.0100 #### [facility] [address] [place], [address] GAP 13 Normal 5-15 [facility] Comment on above: Performed By: #### L 501.5425, L500.2500, L100.0100 #### [facility] [address] [place], [address] Globulin (S) [Mass/Vol] 2.1 g/dL Low 2.2-4.2 [facility] Comment on above: Result Comment: AMENDED REPORT 01/11/251444 GLOB previously reported as: 2.5 g/dL Performed By: #### L 501.5425, L500.2500, L100.0100 #### [facility] [address] [place], [address] Glucose [Mass/Vol] 276 mg/dL High 70-99 [facility] Comment on above: Performed By: #### L 501.5425, L500.2500, L100.0100 #### [facility] [address] [place], [address] Potassium [Moles/Vol] 3.8 mmol/L Normal 3.3-5.1 [facility] Comment on above: Result Comment: AMENDED REPORT 01/11/251444 K previously reported as: 3.6 mmol/L Performed By: #### L 501.5425, L500.2500, L100.0100 #### [facility] [address] [place], [address] Sodium [Moles/Vol] 136 mmol/L Normal 133-145 [facility] Comment on above: Result Comment: AMENDED REPORT 01/11/251444 NA previously reported as: 135 mmol/L Performed By: #### L 501.5425, L500.2500, L100.0100 #### [facility] [address] [place], [address] T PROT 5.9 g/dL Normal 5.9-8.4 [facility] Comment on above: Result Comment: AMENDED REPORT 01/11/251444 T PROT previously reported as: 6.2 g/dL Performed By: #### L 501.5425, L500.2500, L100.0100 #### [facility] [address] [place], [address] Urea nitrogen [Mass/Vol] 8 mg/dL Normal 4-19 [facility] Comment on above: Result Comment: AMENDED REPORT 01/11/251444 BUN previously reported as: 7 mg/dL Performed By: #### L 501.5425, L500.2500, L100.0100 #### [facility] [address] [place], [address] Eosinophil percentageOrdered By: Keenan Celeste on 01-11-2025 Eosinophils/100 WBC (Bld) 2.4 % 0-5 [facility] Erythrocyte distribution wid th ratioOrdered By: Keenan Celeste on 01-11-2025 Erythrocyte distribution width (RBC) [Ratio] 15.1 % High 11.6-14.6 [facility] Erythrocyte distribution wid th standard deviationOrdered By: Keenan eCleste on 01-11-2025 Erythrocyte distribution width (RBC) [Entitic vol] 47.8 fL High 35.1-43.9 [facility] Estimation of creatinine pallavi aranceOrdered By: Keenan Celeste on 01-11-2025 Estimated Creatinine Clearance Calc 44.71 ml/min Low 50-250 [facility] GFR/1.73 sq M.predicted karlee g non-blacks MDRD (S/P/Bld) [Vol rate/Area]Ordered By: Keenan Celeste on 01-11-2025 Estimated GFR (MDRD) Non-Af Amer [address] >60 [facility] Comment on above: mL/min/1.73m2 CKD-EP I Creatinine Equation (2020) Hematocrit Auto (Bld) [Volum e fraction]Ordered By: Keenan Celeste on 01-11-2025 Hematocrit (Bld) [Volume fraction] 34.2 % Low 37-47 [facility] Hemoglobin measurementOrdere d By: Keenan Celeste on 01-11-2025 Hemoglobin (Bld) [Mass/Vol] 11.7 g/dL Low 12.0-15.0 [facility] Immature granulocytes/100 WB C Auto (Bld)Ordered By: Keenan Celeste on 01-11-2025 Immature granulocytes/100 WBC (Bld) 0.400 % 0.0-0.9 [facility] Comment on above: IG% - Immature Granu locytes (promyelocytes, myelocytes and metamyelocytes) > 1% indicates that a LEFT SHIFT is Present. Laboratory - Chemistry and C hemistry - challengeOrdered By: Keenan Celeste on 01-11-2025 AST [Catalytic activity/Vol] 247 U/L High <32 [facility] Comment on above: Previous reported re sult: 240 U/LEdited by: AUTOINS on 01/11/25:1445 AMENDED REPORT 01/11/25 1445 AST previously reported as: 240 H U/L Lymphocytes Auto (Unsp spec) [#/Vol]Ordered By: Keenan Celeste on 01-11-2025 Lymphocytes (Bld) [#/Vol] 1.14 10*3/uL 0.83-4.51 [facility] Lymphocytes/100 WBC Auto (Un sp spec)Ordered By: Keenan Celeste on 01-11-2025 Lymphocytes/100 WBC (Bld) 22.9 % 19-41 [facility] MCV (mean corpuscular volume ) determinationOrdered By: Keenan Celeste on 01-11-2025 MCV (RBC) [Entitic vol] 86.8 fL 81-99 [facility] Mean corpuscular hemoglobin (MCH) determinationOrdered By: Keenan Celeste on 01-11-2025 MCH (RBC) [Entitic mass] 29.7 pg 27.0-32.0 [facility] Mean corpuscular hemoglobin concentration (MCHC) determinationOrdered By: Keenan Celeste on 01-11-2025 MCHC (RBC) [Mass/Vol] 34.2 g/dL 32-36 [facility] Mean platelet volume determi nationOrdered By: Keenan Celeste on 01-11-2025 Platelet mean volume (Bld) [Entitic vol] 13.7 fL High 6.2-12.0 [facility] Monocyte percentageOrdered B y: Keenan Celeste on 01-11-2025 Monocytes/100 WBC (Bld) 11.6 % High 0-10 [facility] Neutrophil percentageOrdered By: Keenan Celeste on 01-11-2025 Neutrophils/100 WBC (Bld) 62.1 % 47-70 [facility] Nucleated red blood cell per centageOrdered By: Keenan Celeste on 01-11-2025 Nucleated RBC/100 WBC (Bld) [Ratio] 0 % 0-5 [facility] Platelet countOrdered By: Jose Celeste on 01-11-2025 Platelets (Bld) [#/Vol] 169 10*3/uL 150-450 [facility] Potassium (Unsp spec) [Mass/ Vol]Ordered By: Keenan Celeste on 01-11-2025 Potassium [Moles/Vol] 3.8 mmol/L 3.3-5.1 [facility] Comment on above: Previous reported re sult: 3.6 mmol/LEdited by: BRIDGER on 01/11/25:1445 AMENDED REPORT 01/11/251444 K previously reported as: 3.6 mmol/L RBC Auto (Bld) [#/Vol]Ordere d By: Keenan Celeste on 01-11-2025 RBC (Bld) [#/Vol] 3.94 10*6/uL Low 4.2-5.4 [facility] Serum creatinine measurement (mass/volume)Ordered By: Keenan Celeste on 01-11-2025 Creatinine [Mass/Vol] 0.74 mg/dL 0.70-1.20 [facility] Comment on above: Icterus present, Res ults may be affected.Previous reported result: 0.73 mg/dLEdited by: BRIDGER on 01/11/25:1445 AMENDED REPORT 01/11/251444 CREAT,SERUM previously reported as: 0.73 mg/dL Icterus present, Results may be affected. Serum globulin measurementOr dered By: Keenan Celeste on 01-11-2025 Globulin (S) [Mass/Vol] 2.1 g/dL Low 2.2-4.2 [facility] Comment on above: Previous reported re sult: 2.5 g/dLEdited by: BRIDGER on 01/11/25:1445 AMENDED REPORT 01/11/251444 GLOB previously reported as: 2.5 g/dL Serum glucose measurement (m ass/volume)Ordered By: Keenan Celeste on 01-11-2025 Glucose [Mass/Vol] 276 mg/dL High 70-99 [facility] Serum or plasma alanine mendoza otransferase (ALT) measurementOrdered By: Keenan Celeste on 01-11-2025 ALT [Catalytic activity/Vol] 343 U/L High <35 [facility] Comment on above: Previous reported re sult: 333 U/LEdited by: BRIDGER on 01/11/25:1445 AMENDED REPORT 01/11/25 1445 ALT previously reported as: 333 H U/L Serum or plasma albumin froylan urement (mass/volume)Ordered By: Keenan Celeste on 01-11-2025 Albumin [Mass/Vol] 3.9 g/dL 3.4-4.8 [facility] Comment on above: Previous reported re sult: 3.7 g/dLEdited by: BRIDGER on 01/11/25:1445 AMENDED REPORT 01/11/25 144 ALB previously reported as: 3.7 g/dL Serum or plasma albumin/glob ulin mass ratioOrdered By: Keenan Celeste on 01-11-2025 Albumin/Globulin [Mass ratio] 1.8 {ratio} 0.9-2.4 [facility] Comment on above: Previous reported re sult: 1.5 RATIOEdited by: BRIDGER on 01/11/25:1445 AMENDED REPORT 01/11/251444 A/G previously reported as: 1.5 RATIO Serum or plasma alkaline charli sphatase measurementOrdered By: Keenan Celeste on 01-11-2025 ALP [Catalytic activity/Vol] 366 U/L High 35-104 [facility] Comment on above: Previous reported re sult: 349 U/LEdited by: BRIDGER on 01/11/25:1445 AMENDED REPORT 01/11/251444 ALK P previously reported as: 349 H U/L Serum or plasma calcium froylan urement (mass/volume)Ordered By: Keenan Celeste on 01-11-2025 Calcium [Mass/Vol] 9.5 mg/dL 7.6-11.0 [facility] Comment on above: Previous reported re sult: 9.7 mg/dLEdited by: BRIDGER on 01/11/25:1445 AMENDED REPORT 01/11/25 144 CA previously reported as: 9.7 mg/dL Serum or plasma urea nitroge n measurement (mass/volume)Ordered By: Keenan Celeste on 01-11-2025 Urea nitrogen [Mass/Vol] 8 mg/dL 4-19 [facility] Comment on above: Previous reported re sult: 7 mg/dLEdited by: BRIDGER on 01/11/25:1445 AMENDED REPORT 01/11/25 1445 BUN previously reported as: 7 mg/dL Sodium levelOrdered By: Keenan Celeste on 01-11-2025 Sodium [Moles/Vol] 136 mmol/L 133-145 [facility] Comment on above: Previous reported re sult: 135 mmol/LEdited by: BRIDGER on 01/11/25:1445 AMENDED REPORT 01/11/251444 NA previously reported as: 135 mmol/L Total proteinOrdered By: Daniela Celeste on 01-11-2025 Protein [Mass/Vol] 5.9 g/dL 5.9-8.4 [facility] Comment on above: Previous reported re sult: 6.2 g/dLEdited by: BRIDGER on 01/11/25:1445 AMENDED REPORT 01/11/251444 T PROT previously reported as: 6.2 g/dL White blood cell (WBC) count Ordered By: Keenan Celeste on 01-11-2025 WBC (Bld) [#/Vol] 5.0 10*3/uL 4.4-11.0 [facility] Bedside Glucoseon 01-10-2025 FINGERSTICK GLU 388 mg/dL High 74-106 [facility] Comment on above: Result Comment: JILLIAN GEMENT OF PATIENT CARE PER NURSING PROTOCOL Performed By: #### L 501.080 #### [facility] [address] [place], [address] FINGERSTICK GLU 369 mg/dL High 74-106 [facility] Comment on above: Result Comment: JILLIAN GEMENT OF PATIENT CARE PER NURSING PROTOCOL Performed By: #### L 501.080 #### [facility] [address] [place], [address] FINGERSTICK GLU 311 mg/dL High [address] [place] [address] Comment on above: Result Comment: JILLIAN GEMENT OF PATIENT CARE PER NURSING PROTOCOL Performed By: #### L 501.080 #### [facility] [address] [place], [address] CBC W/Diff, Automatedon 12-26 Absolute Lymph 1.24 X10 3/uL Normal 0.83-4.51 [facility] Comment on above: Performed By: #### L 501.080 #### [facility] [address] [place], [address] Absolute Neut 4.3 X10 3/uL Normal 2.0-7.7 [facility] Comment on above: Performed By: #### L 501.080 #### [facility] [address] [place], [address] Basophils/100 WBC (Bld) 0.5 % Normal 0-1 [facility] Comment on above: Performed By: #### L 501.080 #### [facility] [address] [place], [address] Eosinophils/100 WBC (Bld) 1.1 % Normal 0-5 [facility] Comment on above: Performed By: #### L 501.080 #### [facility] [address] [place], [address] Erythrocyte distribution width (RBC) [Ratio] 14.7 % High 11.6-14.6 [facility] Comment on above: Performed By: #### L 501.080 #### [facility] [address] [place], [address] Hematocrit (Bld) [Volume fraction] 35.0 % Low 37-47 [facility] Comment on above: Performed By: #### L 501.080 #### [facility] [address] [place], [address] Hemoglobin (Bld) [Mass/Vol] 12.0 g/dL Normal 12.0-15.0 [facility] Comment on above: Performed By: #### L 501.080 #### [facility] [address] [place], [address] IG% 0.200 Normal 0.0-0.9 [facility] Comment on above: Result Comment: IG% - Immature Granulocytes (promyelocytes, myelocytes and metamyelocytes) > 1% indicates that a LEFT SHIFT is Present. Performed By: #### L 501.080 #### [facility] [address] [place], [address] Lymphocytes/100 WBC (Bld) 19.4 % Normal 19-41 [facility] Comment on above: Performed By: #### L 501.080 #### [facility] [address] [place], [address] MCH (RBC) [Entitic mass] 30.0 pg Normal 27.0-32.0 [facility] Comment on above: Performed By: #### L 501.080 #### [facility] [address] [place], [address] MCHC (RBC) [Mass/Vol] 34.3 g/dL Normal 32-36 [facility] Comment on above: Performed By: #### L 501.080 #### [facility] [address] [place], [address] MCV (RBC) [Entitic vol] 87.5 fL Normal 81-99 [facility] Comment on above: Performed By: #### L 501.080 #### [facility] [address] [place], [address] Monocytes/100 WBC (Bld) 12.1 % High 0-10 [facility] Comment on above: Performed By: #### L 501.080 #### [facility] [address] [place], [address] Neutrophils/100 WBC (Bld) 66.7 % Normal 47-70 [facility] Comment on above: Performed By: #### L 501.080 #### [facility] [address] [place], [address] Nucleated RBC (Bld) [#/Vol] 0 10*3/uL Normal 0-5 [facility] Comment on above: Performed By: #### L 501.080 #### [facility] [address] [place], [address] Platelet mean volume (Bld) [Entitic vol] 13.5 fL High 6.2-12.0 [facility] Comment on above: Performed By: #### L 501.080 #### [facility] [address] [place], [address] Platelets (Bld) [#/Vol] 167 10*3/uL Normal 150-450 [facility] Comment on above: Performed By: #### L 501.080 #### [facility] [address] [place], [address] RBC (Bld) [#/Vol] 4.00 10*6/uL Low 4.2-5.4 [facility] Comment on above: Performed By: #### L 501.080 #### [facility] [address] [place], [address] RDW SD 47.3 fl High 35.1-43.9 [facility] Comment on above: Performed By: #### L 501.080 #### [facility] [address] [place], [address] WBC (Bld) [#/Vol] 6.4 10*3/uL Normal 4.4-11.0 [facility] Comment on above: Performed By: #### L 501.080 #### [facility] [address] [place], [address] Calculated very low density lipoprotein (VLDL) cholesterol measurementOrdered By: Oniel Hernandez on 01-10-2025 VLDL Cholesterol 26 mg/dL 5-40 [facility] Comprehensive Metabolic Prof ilon 01-10-2025 Albumin [Mass/Vol] 3.8 g/dL Normal 3.4-4.8 [facility] Comment on above: Performed By: #### L 501.080 #### [facility] [address] [place], [address] Albumin/Globulin [Mass ratio] 1.4 {ratio} Normal 0.9-2.4 [facility] Comment on above: Performed By: #### L 501.080 #### [facility] [address] [place], [address] ALK PHOS 374 U/L High 35-104 [facility] Comment on above: Performed By: #### L 501.080 #### [facility] [address] [place], [address] ALT [Catalytic activity/Vol] 367 U/L High <=34 [facility] Comment on above: Performed By: #### L 501.080 #### [facility] [address] [place], [address] AST [Catalytic activity/Vol] 286 U/L High <=31 [facility] Comment on above: Performed By: #### L 501.080 #### [facility] [address] [place], [address] Bilirubin [Mass/Vol] 8.88 mg/dL High 0.00-1.30 [facility] Comment on above: Performed By: #### L 501.080 #### [facility] [address] [place], [address] BUN/CRE 13.6 RATIO Normal 10-20 [facility] Comment on above: Performed By: #### L 501.080 #### [facility] [address] [place], [address] Calcium [Mass/Vol] 9.4 mg/dL Normal 7.6-11.0 [facility] Comment on above: Performed By: #### L 501.080 #### [facility] [address] [place], [address] Chloride [Moles/Vol] 101 mmol/L Normal 98-108 [facility] Comment on above: Performed By: #### L 501.080 #### [facility] [address] [place], [address] CO2 [Moles/Vol] 17.3 mmol/L Low 21.0-32.0 [facility] Comment on above: Performed By: #### L 501.080 #### [facility] [address] [place], [address] Creatinine [Mass/Vol] 0.65 mg/dL Low 0.70-1.20 [facility] Comment on above: Result Comment: Icte cristina present, Results may be affected. Performed By: #### L 501.080 #### [facility] [address] [place], [address] ECRCL 44.61 ml/min Low 50-250 [facility] Comment on above: Performed By: #### L 501.080 #### [facility] [address] [place], [address] GAP 16 High 5-15 [facility] Comment on above: Performed By: #### L 501.080 #### [facility] [address] [place], [address] GFR/1.73 sq M.predicted among non-blacks MDRD (S/P/Bld) [Vol rate/Area] 87 mL/min/{1.73_m2} Normal >60 [facility] Comment on above: Result Comment: mL/m in/1.73m2 CKD-EPI Creatinine Equation (2020) Performed By: #### L 501.080 #### [facility] [address] [place], [address] Globulin (S) [Mass/Vol] 2.7 g/dL Normal 2.2-4.2 [facility] Comment on above: Performed By: #### L 501.080 #### [facility] [address] [place], [address] Glucose [Mass/Vol] 371 mg/dL High 70-99 [facility] Comment on above: Performed By: #### L 501.080 #### [facility] [address] [place], [address] Potassium [Moles/Vol] 3.4 mmol/L Normal 3.3-5.1 [facility] Comment on above: Performed By: #### L 501.080 #### [facility] [address] [place], [address] Sodium [Moles/Vol] 134 mmol/L Normal 133-145 [facility] Comment on above: Performed By: #### L 501.080 #### [facility] [address] [place], [address] T PROT 6.6 g/dL Normal 5.9-8.4 [facility] Comment on above: Performed By: #### L 501.080 #### [facility] [address] [place], [address] Urea nitrogen [Mass/Vol] 9 mg/dL Normal 4-19 [facility] Comment on above: Performed By: #### L 501.080 #### [facility] [address] [place], [address] H AND P Exam - Hospital[place] 01-10-2025 H&P Exam - Hospitalist [facility] Medical Records Department [address] [place] [address] H P Exam - Hospitalist 01/10/25 0039 MR#: [id number] Acct: [id number] Name: TELMA TINEO Rep #: [id number] : 1940 84 From: Oniel Golden DO PCP: Dr. Henok Martinez MD Status:ADM IN Location: MS3 [id number] [facility] - General General Date of Admission: [...] with chronic neck pain who presents to [facility] ER complaining of jaundice. Ms. [...] She was then arranged [place] [facility] not available at this time so the ER physician is contacted the hospitalist service to admit this patient until such time she can be safely transferred as per the policy of this hospital. She was then admitted to the general medical floor for ongoing care for stay that is expected to extend beyond 2 midnights. [facility] Medical History (Updated 01/10/25 @ 02:15 [...] 02:12 by (more content not included)... Normal [facility] Hemoglobin A1con 01-10-2025 HbA1c (Bld) [Mass fraction] 13.2 % Normal <=5.6 [facility] Comment on above: Performed By: #### L 501.080 #### [facility] [address] [place], [address] Hemoglobin A1c percentageOrd ered By: Keenan Celeste on 01-10-2025 HbA1c (Bld) [Mass fraction] 13.2 % >5.7 [facility] LDL calc ser/plasOrdered By: Oniel Hernandez on 01-10-2025 LDL Cholesterol, Calculated 78 mg/dL [facility] Comment on above: Izsirywyvd=071-975 m g/dL & Higher Vshq=153 mg/dL or greater Lipid Profileon 01-10-2025 CHOL:HDL 2.[address] [facility] Comment on above: Performed By: #### L 501.080 #### [facility] [address] [place], [address] Cholesterol [Mass/Vol] 159 mg/dL Normal <=200 [facility] Comment on above: Result Comment: Chol esterol level, Desirable <200 mg/dL Borderline high cholesterol 200-239 mg/dL High cholesterol >=240 mg/dL Recommendations of the NCEP Adult Treatment Panel for the following risk-cutoff thresholds for the [place] population. Performed By: #### L 501.080 #### [facility] [address] [place], [address] Cholesterol in HDL [Mass/Vol] 55 mg/dL Normal [facility] Comment on above: Result Comment: Loulou onal Cholesterol Education Program (NCEP) guidelines: <40 mg/dL: Low HDL-cholesterol (major risk factor for CHD) >= 60 mg/dL: High HDL-cholesterol (negative risk factor for CHD) HDL-cholesterol is affected by a number of factors, e.g. smoking, exercise, hormones, sex and age. Performed By: #### L 501.080 #### [facility] [address] [place], [address] Cholesterol in LDL [Mass/Vol] 78 mg/dL Normal [facility] Comment on above: Result Comment: Bord ndkdpo=291-617 mg/dL Higher Fucp=733 mg/dL or greater Performed By: #### L 501.080 #### [facility] [address] [place], [address] Cholesterol in VLDL [Mass/Vol] 26 mg/dL Normal 5-40 [facility] Comment on above: Performed By: #### L 501.080 #### [facility] [address] [place], [address] Triglyceride [Mass/Vol] 130 mg/dL Normal [facility] Comment on above: Result Comment: The drugs N-Acetylcysteine and Metamizole may falsely depress this assay. Normal range: <150 mg/dL Borderline High: 150-199 mg/dL High: 200-499 mg/dL Very High: >500 mg/dL Performed By: #### L 501.080 #### [facility] [address] [place], [address] Magnesiumon 01-10-2025 Magnesium [Mass/Vol] 1.9 mg/dL Normal 1.5-2.2 [facility] Comment on above: Performed By: #### L 501.5200 #### [facility] [address] [place], [address] Phosphoruson 01-10-2025 Phosphate [Mass/Vol] 2.9 mg/dL Normal 2.7-4.5 [facility] Comment on above: Performed By: #### L 501.080 #### [facility] [address] [place], [address] Screening total cholesterol/ high density lipoprotein (HDL) cholesterol ratioOrdered By: Oniel Hernandez on 01-10-2025 Cholesterol.total/Chol esterol in HDL [Mass ratio] 2.91 {ratio} [facility] Serum or plasma cholesterol in HDL measurement (mass/volume)Ordered By: Oniel Hernandez on 01-10-2025 Cholesterol in HDL [Mass/Vol] 55 mg/dL >40 [facility] Comment on above: National Cholesterol Education Program (NCEP) guidelines:<40 mg/dL: Low HDL-cholesterol (major risk factor for CHD)>= 60 mg/dL: High HDL-cholesterol (negative risk factor for CHD)HDL-cholesterol is affected by a number of factors, e.g. smoking, exercise, hormones, sex and age. Serum or plasma cholesterol measurement (mass/volume)Ordered By: Oniel Hernandez on 01-10-2025 Cholesterol [Mass/Vol] 159 mg/dL <201 [facility] Comment on above: Cholesterol level, D esirable <200 mg/dLBorderline high cholesterol 200-239 mg/dLHigh cholesterol >=240 mg/dLRecommendations of the NCEP Adult Treatment Panel for the following risk-cutoff thresholds for the [place] population. Serum phosphorus measurement Ordered By: Oniel Hernandez on 01-10-2025 Phosphorus Level 2.9 mg/dL 2.7-4.5 [facility] TSH DL <= 0.005 mIU/L QnOrde red By: Oniel Hernandez on 01-10-2025 Thyroid Stimulating Hormone (TSH) 2.180 uIU/mL 0.300-4.200 [facility] Thyroid Stim Hormone (TSH)on 01-10-2025 TSH 2.180 uIU/mL Normal 0.300-4.200 [facility] Comment on above: Performed By: #### L 501.080 #### [facility] [employer] [address] [place], [place], [id number] Triglycerides measurementOrd ered By: Oniel Hernandez on 01-10-2025 Triglyceride [Mass/Vol] 130 mg/dL <199 [facility] Comment on above: The drugs N-Acetylcy steine and Metamizole may falsely depress this assay. Normal range: <150 mg/dLBorderline High: 150-199 mg/dLHigh: 200-499 mg/dLVery High: >500 mg/dL Abdomen/Pelvis W IV Cont ONL Yon 01-09-2025 Abdomen/Pelvis W IV Cont ONLY [facility] Imaging Services [address] [place], [place] [id number] Abdomen/Pelvis W IV Cont ONLY MR#: [id number] Acct: [id number] Name: TELMA TINEO Rep #: [id number] : 1940 F 84 From: Keenan Jonas MD PCP: Dr. Henok Martinez MD Status: REG ER Study: Abdomen/Pelvis W IV Cont ONLY Date of Exam: Exam# [id number] Ordering Dr: Guille Garnica MD PROCEDURE: ABDOMEN/PELVIS [...] Guille Garnica MD; Dr. Henok Martinez MD Wallpaper Consultant: Signed Normal [facility] Absolute neutrophil countOrd ered By: Guille Garnica on 01-09-2025 Neutrophils (Bld) [#/Vol] 4.2 10*3/uL 2.0-7.7 [facility] Anion gap in Serum or Plasma Ordered By: Guille Garnica on 01-09-2025 Anion gap [Moles/Vol] 14 mmol/L 03-11 [facility] BUN/creatinine ratioOrdered By: Guille Garnica on 01-09-2025 Urea nitrogen/Creatinine [Mass ratio] 14.0 mg/mg 08-16 [facility] Basic Metabolic Profile (BMP )on 01-09-2025 BUN/CRE 14.0 RATIO Normal 08-16 [facility] Comment on above: Performed By: #### L 100.0100, L501.2450, L500.2500, L300.3900, L500.3400, L300.4310 ####[facility] [address] [place], [address] Calcium [Mass/Vol] 9.9 mg/dL Normal 7.6-11.0 [facility] Comment on above: Performed By: #### L 100.0100, L501.2450, L500.2500, L300.3900, L500.3400, L300.4310 ####[facility] [address] [place], [address] Chloride [Moles/Vol] 98 mmol/L Normal 98-108 [facility] Comment on above: Performed By: #### L 100.0100, L501.2450, L500.2500, L300.3900, L500.3400, L300.4310 ####[facility] [address] [place], [address] CO2 [Moles/Vol] 20.3 mmol/L Low 21.0-32.0 [facility] Comment on above: Performed By: #### L 100.0100, L501.2450, L500.2500, L300.3900, L500.3400, L300.4310 ####[facility] [address] [place], [address] Creatinine [Mass/Vol] 0.81 mg/dL Normal 0.70-1.20 [facility] Comment on above: Result Comment: Icte cristina present, Results may be affected. Performed By: #### L 100.0100, L501.2450, L500.2500, L300.3900, L500.3400, L300.4310 ####[facility] [address] [place], [address] ECRCL 44.58 ml/min Low 50-250 [facility] Comment on above: Performed By: #### L 100.0100, L501.2450, L500.2500, L300.3900, L500.3400, L300.4310 ####[facility] [address] [place], [address] GAP 14 Normal 5-15 [facility] Comment on above: Performed By: #### L 100.0100, L501.2450, L500.2500, L300.3900, L500.3400, L300.4310 ####[facility] [address] [place], [address] GFR/1.73 sq M.predicted among non-blacks MDRD (S/P/Bld) [Vol rate/Area] 71 mL/min/{1.73_m2} Normal >60 [facility] Comment on above: Result Comment: mL/m in/1.73m2 CKD-EPI Creatinine Equation (2020) Performed By: #### L 100.0100, L501.2450, L500.2500, L300.3900, L500.3400, L300.4310 ####[facility] [address] [place], [address] Glucose [Mass/Vol] 418 mg/dL High 70-99 [facility] Comment on above: Performed By: #### L 100.0100, L501.2450, L500.2500, L300.3900, L500.3400, L300.4310 ####[facility] [address] [place], [address] Potassium [Moles/Vol] 3.8 mmol/L Normal 3.3-5.1 [facility] Comment on above: Performed By: #### L 100.0100, L501.2450, L500.2500, L300.3900, L500.3400, L300.4310 ####[facility] [address] [place], [address] Sodium [Moles/Vol] 132 mmol/L Low 133-145 [facility] Comment on above: Performed By: #### L 100.0100, L501.2450, L500.2500, L300.3900, L500.3400, L300.4310 ####[facility] [address] [place], [address] Urea nitrogen [Mass/Vol] 11 mg/dL Normal 4-19 [facility] Comment on above: Performed By: #### L 100.0100, L501.2450, L500.2500, L300.3900, L500.3400, L300.4310 ####[facility] [address] [place], [address] Basophil percentageOrdered B y: Guille Garnica on 01-09-2025 Basophils/100 WBC (Bld) 0.6 % 0-1 [facility] Bilirubin directOrdered By: Guille Garnica on 01-09-2025 Bilirubin.direct [Mass/Vol] 7.64 mg/dL High 0.00-0.30 [facility] Bilirubin, totalOrdered By: Guille Kellyarmando on 01-09-2025 Bilirubin [Mass/Vol] 9.78 mg/dL High 0.00-1.30 [facility] CBC W/Diff, Automatedon 12-26 Absolute Lymph 1.37 X10 3/uL Normal 0.83-4.51 [facility] Comment on above: Performed By: #### L 100.0100, L501.2450, L500.2500, L300.3900, L500.3400, L300.4310 #### [facility] [address] [place], [address] Absolute Neut 4.2 X10 3/uL Normal 2.0-7.7 [facility] Comment on above: Performed By: #### L 100.0100, L501.2450, L500.2500, L300.3900, L500.3400, L300.4310 #### [facility] [address] [place], [address] Basophils/100 WBC (Bld) 0.6 % Normal 0-1 [facility] Comment on above: Performed By: #### L 100.0100, L501.2450, L500.2500, L300.3900, L500.3400, L300.4310 #### [facility] [address] [place], [address] Eosinophils/100 WBC (Bld) 1.1 % Normal 0-5 [facility] Comment on above: Performed By: #### L 100.0100, L501.2450, L500.2500, L300.3900, L500.3400, L300.4310 #### [facility] [address] [place], [address] Erythrocyte distribution width (RBC) [Ratio] 14.6 % Normal 11.6-14.6 [facility] Comment on above: Performed By: #### L 100.0100, L501.2450, L500.2500, L300.3900, L500.3400, L300.4310 #### [facility] [address] [place], [address] Hematocrit (Bld) [Volume fraction] 37.4 % Normal 37-47 [facility] Comment on above: Performed By: #### L 100.0100, L501.2450, L500.2500, L300.3900, L500.3400, L300.4310 #### [facility] [address] [place], [address] Hemoglobin (Bld) [Mass/Vol] 12.6 g/dL Normal 12.0-15.0 [facility] Comment on above: Performed By: #### L 100.0100, L501.2450, L500.2500, L300.3900, L500.3400, L300.4310 #### [facility] [address] [place], [address] IG% 0.300 Normal 0.0-0.9 [facility] Comment on above: Result Comment: IG% - Immature Granulocytes (promyelocytes, myelocytes and metamyelocytes) > 1% indicates that a LEFT SHIFT is Present. Performed By: #### L 100.0100, L501.2450, L500.2500, L300.3900, L500.3400, L300.4310 #### [facility] [address] [place], [address] Lymphocytes/100 WBC (Bld) 21.5 % Normal 19-41 [facility] Comment on above: Performed By: #### L 100.0100, L501.2450, L500.2500, L300.3900, L500.3400, L300.4310 #### [facility] [address] [place], [address] MCH (RBC) [Entitic mass] 29.6 pg Normal 27.0-32.0 [facility] Comment on above: Performed By: #### L 100.0100, L501.2450, L500.2500, L300.3900, L500.3400, L300.4310 #### [facility] [address] [place], [address] MCHC (RBC) [Mass/Vol] 33.7 g/dL Normal 32-36 [facility] Comment on above: Performed By: #### L 100.0100, L501.2450, L500.2500, L300.3900, L500.3400, L300.4310 #### [facility] [address] [place], [address] MCV (RBC) [Entitic vol] 87.8 fL Normal 81-99 [facility] Comment on above: Performed By: #### L 100.0100, L501.2450, L500.2500, L300.3900, L500.3400, L300.4310 #### [facility] [address] [place], [address] Monocytes/100 WBC (Bld) 10.8 % High 0-10 [facility] Comment on above: Performed By: #### L 100.0100, L501.2450, L500.2500, L300.3900, L500.3400, L300.4310 #### [facility] [address] [place], [address] Neutrophils/100 WBC (Bld) 65.7 % Normal 47-70 [facility] Comment on above: Performed By: #### L 100.0100, L501.2450, L500.2500, L300.3900, L500.3400, L300.4310 #### [facility] [address] [place], [address] Nucleated RBC (Bld) [#/Vol] 0 10*3/uL Normal 0-5 [facility] Comment on above: Performed By: #### L 100.0100, L501.2450, L500.2500, L300.3900, L500.3400, L300.4310 #### [facility] [address] [place], [address] Platelet mean volume (Bld) [Entitic vol] 13.7 fL High 6.2-12.0 [facility] Comment on above: Performed By: #### L 100.0100, L501.2450, L500.2500, L300.3900, L500.3400, L300.4310 #### [facility] [address] [place], [address] Platelets (Bld) [#/Vol] 171 10*3/uL Normal 150-450 [facility] Comment on above: Performed By: #### L 100.0100, L501.2450, L500.2500, L300.3900, L500.3400, L300.4310 #### [facility] [address] [place], [address] RBC (Bld) [#/Vol] 4.26 10*6/uL Normal 4.2-5.4 [facility] Comment on above: Performed By: #### L 100.0100, L501.2450, L500.2500, L300.3900, L500.3400, L300.4310 #### [facility] [address] [place], [address] RDW SD 47.2 fl High 35.1-43.9 [facility] Comment on above: Performed By: #### L 100.0100, L501.2450, L500.2500, L300.3900, L500.3400, L300.4310 #### [facility] [address] [place], [address] WBC (Bld) [#/Vol] 6.4 10*3/uL Normal 4.4-11.0 [facility] Comment on above: Performed By: #### L 100.0100, L501.2450, L500.2500, L300.3900, L500.3400, L300.4310 #### [facility] [address] [place], [place], [id number] Cancer antigen 19-9 measurem entOrdered By: Hung Remy on 01-09-2025 CA 19-9 Antigen 355 U/mL High 0-35 [facility] Comment on above: [facility] El ectrochemiluminescence Immunoassay(ECLIA)Values obtained with different assay methods or kits cannotbe used interchangeably. Results cannot be interpreted asabsolute evidence of the presence or absence of malignantdisease.Performed at: [facility] [id number] Director: Barry Hart PhD, Phone: [phone] Carbon dioxide, total [Moles /volume] in Central venous bloodOrdered By: Guille Garnica on 01-09-2025 CO2 [Moles/Vol] 20.3 mmol/L Low 21.0-32.0 [facility] Chloride assayOrdered By: Mario Garnica on 01-09-2025 Chloride [Moles/Vol] 98 mmol/L 98-108 [facility] Emergency Department Summary on 01-09-[address] [facility] Medical Records Department [address] [place] [address] Emergency Department Summary 01/09/25 MR#: [id number] Acct: [id number] Name: TELMA TINEO Rep #: [id number] : 1940 84 From: Guille Garnica MD PCP: Dr. Henok Martinez MD Status:REG ER Location: ED ADDENDUM by Dr. Hung Remy DO on 01/09/25 at 2244 Update 2245 hrs.: Patient was accepted at [facility]. They are stating it is unlikely that a bed will be assigned until at least tomorrow. Per hospital protocol we will wait 6 hours and then I will speak with the hospitalist regarding admission 01/09/25 3983 Cosigner Signature (if applicable): cc: Dr. Henok Martinez MD * Signed HPI History of Present Illness Chief Complaint: Abn Labs Narrative Narrative: 84-year-old female past medical history of hypertension, dysrhythmia, on blood thinners, presents with jaundice. She and her family states that she has been yellow for about a week. She is nauseated but not vomiting. She has dark urine and ried colored stools. She does not drink alcohol. She denies any exacerbating or alleviating factors but her grandson states that she has not taken some of her meds for the last few days. No fevers or chills. [facility] Medical History Neck pain, bilateral History [...] 99 97 (more content not included)... Normal [facility] Eosinophil percentageOrdered By: Guille Garnica on 01-09-2025 Eosinophils/100 WBC (Bld) 1.1 % 0-5 [facility] Erythrocyte distribution wid th ratioOrdered By: Guille Garnica on 01-09-2025 Erythrocyte distribution width (RBC) [Ratio] 14.6 % 11.6-14.6 [facility] Erythrocyte distribution wid th standard deviationOrdered By: Guille Garnica on 01-09-2025 Erythrocyte distribution width (RBC) [Entitic vol] 47.2 fL High 35.1-43.9 [facility] Estimation of creatinine pallavi aranceOrdered By: Guille Garnica on 01-09-2025 Estimated Creatinine Clearance Calc 44.58 ml/min Low 50-250 [facility] GFR/1.73 sq M.predicted karlee g non-blacks MDRD (S/P/Bld) [Vol rate/Area]Ordered By: Guille Garnica on 01-09-2025 Estimated GFR (MDRD) Non-Af Amer [address] >60 [facility] Comment on above: mL/min/1.73m2 CKD-EP I Creatinine Equation (2020) Hematocrit Auto (Bld) [Volum e fraction]Ordered By: Guille Garnica on 01-09-2025 Hematocrit (Bld) [Volume fraction] 37.4 % 37-47 [facility] Hemoglobin measurementOrdere d By: Guille Garnica on 01-09-2025 Hemoglobin (Bld) [Mass/Vol] 12.6 g/dL 12.0-15.0 [facility] Immature granulocytes/100 WB C Auto (Bld)Ordered By: Guille Garnica on 01-09-2025 Immature granulocytes/100 WBC (Bld) 0.300 % 0.0-0.9 [facility] Comment on above: IG% - Immature Granu locytes (promyelocytes, myelocytes and metamyelocytes) > 1% indicates that a LEFT SHIFT is Present. International normalized rat io (INR) calculationOrdered By: Guille Garnica on 01-09-2025 INR Coag (Bld) [Relative time] 1.0 {INR} [facility] - Chemistry and C hemistry - challengeOrdered By: Guille Garnica on 01-09-2025 AST [Catalytic activity/Vol] 308 U/L High <32 [facility] Lipaseon 01-09-2025 Lipase [Catalytic activity/Vol] 224 U/L High 13-75 [facility] Comment on above: Result Comment: Kisha kimbrough note: LIPASE revised reference range effective 23. New Lipase methodology. Expected to produce lower values than the previous assay method. NEW Reference Range: 13 - 75 U/L Performed By: #### L 100.0100, L501.2450, L500.2500, L300.3900, L500.3400, L300.4310 ####[facility] [address] [place], [address] Lipase measurementOrdered By : Guille Garnica on 01-09-2025 Lipase [Catalytic activity/Vol] 224 U/L High 13-75 [facility] Comment on above: Please note:LIPASE r evised reference range effective 23. New Lipase methodology. Expected to produce lower values than the previous assay method. NEW Reference Range: 13 - 75 U/L Liver Profileon 01-09-2025 Albumin [Mass/Vol] 4.2 g/dL Normal 3.4-4.8 [facility] Comment on above: Performed By: #### L 100.0100, L501.2450, L500.2500, L300.3900, L500.3400, L300.4310 ####[facility] [address] [place], [address] ALK PHOS 416 U/L High 35-104 [facility] Comment on above: Performed By: #### L 100.0100, L501.2450, L500.2500, L300.3900, L500.3400, L300.4310 ####[facility] [address] [place], [address] ALT [Catalytic activity/Vol] 390 U/L High <=34 [facility] Comment on above: Performed By: #### L 100.0100, L501.2450, L500.2500, L300.3900, L500.3400, L300.4310 ####[facility] [address] [place], [address] AST [Catalytic activity/Vol] 308 U/L High <=31 [facility] Comment on above: Performed By: #### L 100.0100, L501.2450, L500.2500, L300.3900, L500.3400, L300.4310 ####[facility] [address] [place], [address] Bilirubin [Mass/Vol] 9.78 mg/dL High 0.00-1.30 [facility] Comment on above: Performed By: #### L 100.0100, L501.2450, L500.2500, L300.3900, L500.3400, L300.4310 ####[facility] [address] [place], [address] Bilirubin.direct [Mass/Vol] 7.64 mg/dL High 0.00-0.30 [facility] Comment on above: Performed By: #### L 100.0100, L501.2450, L500.2500, L300.3900, L500.3400, L300.4310 ####[facility] [address] [place], [address] Globulin (S) [Mass/Vol] 3.1 g/dL Normal 2.2-4.2 [facility] Comment on above: Performed By: #### L 100.0100, L501.2450, L500.2500, L300.3900, L500.3400, L300.4310 ####[facility] [address] [place], [address] T PROT 7.3 g/dL Normal 5.9-8.4 [facility] Comment on above: Performed By: #### L 100.0100, L501.2450, L500.2500, L300.3900, L500.3400, L300.4310 ####[facility] [address] [place], [address] Lymphocytes Auto (Unsp spec) [#/Vol]Ordered By: Guille Garnica on 01-09-2025 Lymphocytes (Bld) [#/Vol] 1.37 10*3/uL 0.83-4.51 [facility] Lymphocytes/100 WBC Auto (Un sp spec)Ordered By: Guille Garnica on 01-09-2025 Lymphocytes/100 WBC (Bld) 21.5 % 19-41 [facility] MCV (mean corpuscular volume ) determinationOrdered By: Guille Garnica on 01-09-2025 MCV (RBC) [Entitic vol] 87.8 fL 81-99 [facility] Magnesium (Unsp spec) [Mass/ Vol]Ordered By: Oniel Hernandez on 01-09-2025 Magnesium [Mass/Vol] 1.9 mg/dL 1.5-2.2 [facility] Mean corpuscular hemoglobin (MCH) determinationOrdered By: Guille Garnica on 01-09-2025 MCH (RBC) [Entitic mass] 29.6 pg 27.0-32.0 [facility] Mean corpuscular hemoglobin concentration (MCHC) determinationOrdered By: Guille Garnica on 01-09-2025 MCHC (RBC) [Mass/Vol] 33.7 g/dL 32-36 [facility] Mean platelet volume determi nationOrdered By: Guille Garnica on 01-09-2025 Platelet mean volume (Bld) [Entitic vol] 13.7 fL High 6.2-12.0 [facility] Monocyte percentageOrdered B y: Guille Garnica on 01-09-2025 Monocytes/100 WBC (Bld) 10.8 % High 0-10 [facility] Neutrophil percentageOrdered By: Guille Garnica on 01-09-2025 Neutrophils/100 WBC (Bld) 65.7 % 47-70 [facility] No Panel InformationOrdered By: Hung Remy on 01-09-2025 CA 19-9 Antigen Serial Monitoring Not Reportable [facility] Nucleated red blood cell per centageOrdered By: Guille Garnica on 01-09-2025 Nucleated RBC/100 WBC (Bld) [Ratio] 0 % 0-5 [facility] Partial Thromboplast Timeon 01-09-2025 aPTT Coag (Bld) [Time] 26.1 s Normal 24.1-36.2 [facility] Comment on above: Performed By: #### L 100.0100, L501.2450, L500.2500, L300.3900, L500.3400, L300.4310 ####[facility] [address] [place], [address] Platelet countOrdered By: Mario Garnica on 01-09-2025 Platelets (Bld) [#/Vol] 171 10*3/uL 150-450 [facility] Potassium (Unsp spec) [Mass/ Vol]Ordered By: Guille Garnica on 01-09-2025 Potassium [Moles/Vol] 3.8 mmol/L 3.3-5.1 [facility] Prothrombin Time w/INRon INR Coag (PPP) [Relative time] 1.0 {INR} Normal [facility] Comment on above: Performed By: #### L 100.0100, L501.2450, L500.2500, L300.3900, L500.3400, L300.4310 ####[facility] [address] [place], [address] PT Coag (PPP) [Time] 12.8 s Normal 11.7-14.9 [facility] Comment on above: Performed By: #### L 100.0100, L501.2450, L500.2500, L300.3900, L500.3400, L300.4310 ####[facility] [address] [place], [address] Prothrombin timeOrdered By: Guille Garnica on 01-09-2025 PT Coag (PPP) [Time] 12.8 s 11.7-14.9 [facility] RBC Auto (Bld) [#/Vol]Ordere d By: Guille Garnica on 01-09-2025 RBC (Bld) [#/Vol] 4.26 10*6/uL 4.2-5.4 [facility] [facility] Serum creatinine measurement (mass/volume)Ordered By: Guille Garnica on 01-09-2025 Creatinine [Mass/Vol] 0.81 mg/dL 0.70-1.20 [facility] Comment on above: Icterus present, Res ults may be affected. Serum globulin measurementOr dered By: Guille Garnica on 01-09-2025 Globulin (S) [Mass/Vol] 3.1 g/dL 2.2-4.2 [facility] Serum glucose measurement (m ass/volume)Ordered By: Guille Garnica on 01-09-2025 Glucose [Mass/Vol] 418 mg/dL High 70-99 [facility] Serum or plasma alanine mendoza otransferase (ALT) measurementOrdered By: Guille Garnica on 01-09-2025 ALT [Catalytic activity/Vol] 390 U/L High <35 [facility] Serum or plasma albumin froylan urement (mass/volume)Ordered By: Guille Garnica on 01-09-2025 Albumin [Mass/Vol] 4.2 g/dL 3.4-4.8 [facility] Serum or plasma alkaline charli sphatase measurementOrdered By: Guille Garnica on 01-09-2025 ALP [Catalytic activity/Vol] 416 U/L High 35-104 [facility] Serum or plasma calcium froylan urement (mass/volume)Ordered By: Guille Garnica on 01-09-2025 Calcium [Mass/Vol] 9.9 mg/dL 7.6-11.0 [facility] Serum or plasma urea nitroge n measurement (mass/volume)Ordered By: Guille Garnica on 01-09-2025 Urea nitrogen [Mass/Vol] 11 mg/dL 4-19 [facility] Sodium levelOrdered By: Guille Garnica on 01-09-2025 Sodium [Moles/Vol] 132 mmol/L Low 133-145 [facility] Total proteinOrdered By: Angelica Garnica on 01-09-2025 Protein [Mass/Vol] 7.3 g/dL 5.9-8.4 [facility] White blood cell (WBC) count Ordered By: Guille Garnica on 01-09-2025 WBC (Bld) [#/Vol] 6.4 10*3/uL 4.4-11.0 [facility] aPTT Coag (PPP) [Time]Ordere d By: Guille Garnica on 01-09-2025 aPTT Coag (Bld) [Time] 26.1 s 24.1-36.2 [facility] CNOVon 11-17-2024 CNOV Office Visit (PULMWS ) -- TELMA TINEO ([id number]) 1940 F Date Time Provider Department 11/17/24 1:00 PM ANGELIA HART PULMWS During your visit today, we recorded the following information about you: Pulse Respiration Blood pressure 72/minute 16/minute 104/62 Angelia Hart, CORPORATE DIRECTOR TALENT ASSESSMENT.[employer]ID[employer] 11/17/2024 3:21 PM Signed Pulmonary Medicine Patients [...] with increase in PPI. Ran out of [employer] and has been out since the beginning of the year. Has not been using Albuterol. PAST MEDICAL HISTORY Diagnosis Date Allergies Lundberg's palsy Bronchiectasis (HCC) Gastroesophageal reflux disease without esophagitis History of CVA (cerebrovascular accident) Mild intermittent asthma without complication Primary hypertension Type 2 diabetes mellitus without complication, without long-term current use of insulin ([facility]) Allergies: Penicillins Anaphylaxis Tetracycline Rash Tramadol Intolerance [...] Blood Pressure Test Kit-Large Commonly known as: Pivot ARM BP MONITOR 1 Each once daily. [...] mass or definite lymphadenopathy within the chest. Wallpaper Consultant: [facility] Transcribe Date/Time: Nov 21 2022 4:33P Dict (more content not included)... Normal [facility] Abdomen RUQon 11-14-2024 IMPRESSION: No acute abnormality. No cholelithiasis. No biliary dilatation. The spleen is normal size. Wallpaper Consultant: [facility] Transcribe Date/Time: Nov 14 2024 6:40A Dictated by : CHANEL NARAYANAN MD This examination was interpreted and the report reviewed and electronically signed by: CHANEL NARAYANAN MD on Nov 14 2024 6:41AM [facility] DIVISION OF RADIOLOGY * * *Final Report* [...] No hydronephrosis. - DIVISION OF RADIOLOGY Provider, [facility] - 11/14/2024 * * *Final [...] biliary dilatation. The spleen is normal size. Wallpaper Consultant: [employer] Transcribe Date/Time: Nov 14 2024 6:40A Dictated by : CHANEL NARAYAANN MD This examination was interpreted and the report reviewed and electronically signed by: CHANEL NARAYANAN MD on Nov 14 2024 6:41AM EST [facility] US Abdomen RUQOrdered By: Molly carlson Provider on 11-14-2024 [facility] US ABD RIGHT UPPER QUADRANTo n 11-12-2024 US ABD RIGHT UPPER QUADRANT * * *Final Report* * * DATE OF EXAM: Nov 12 2024 2:54PM [facility] 1032 - US ABD RIGHT UPPER [...] biliary dilatation. The spleen is normal size. Wallpaper Consultant: [facility] Transcribe Date/Time: Nov 14 2024 6:40A Dictated by : CHANEL NARAYANAN MD This examination was interpreted and the report reviewed and electronically signed by: CHANEL NARAYANAN MD on Nov 14 2024 6:41AM EST [id number] Normal [facility] US ABD SPLEEN -NBon 11-12-19 US ABD SPLEEN -NB * * *Final Report* * * DATE OF EXAM: Nov 12 2024 2:54PM [facility] 1232 - US ABD SPLEEN -NB [...] biliary dilatation. The spleen is normal size. Wallpaper Consultant: [facility] Transcribe Date/Time: Nov 14 2024 6:40A Dictated by : CHANEL NARAYANAN MD This examination was interpreted and the report reviewed and electronically signed by: CHANEL NARAYANAN MD on Nov 14 2024 6:41AM EST [id number] Normal [facility] US Abdomen RUQon 11-12-2024 Radiology Study observation (narrative) [facility] CNTHERAPYon 11-09-2024 CNTHERAPY OT/PT/Speech Visit (SPMBME) -- TELMA TINEO ([id number]) 1940 F Date Time Provider Department 11/09/24 10:30 AM MELIZA WADSWORTH Date Time Provider Department Center 11/09/2024 10:30 AM [id number], JOYCE SPMBME [facility] Reason for Visit: Speech Instrumental Swallow Eval [...] with meals. - Blood Pressure Test Kit-Large ([place] [employer] ARM BP MONITOR) 1 Each once daily. - Methylsulfonylmethane (MSM) 1,000 mg cap Take 1 capsule by mouth once daily. Letter Text [facility] RF videography Hypopharynx a nd Esophagus [...] and Hearing therapist report for further evaluation Wallpaper Consultant: [facility] Transcribe Date/Time: Nov 09 2024 1:03P Dictated by : KEVON EUBANKS MD This examination was interpreted and the report reviewed and electronically signed by: KEVON EUBANKS MD on Nov 09 2024 1:11PM [facility] RADIOLOGY Provider, [facility] - 11/09/2024 * * *Final [...] and Hearing therapist report for further evaluation Wallpaper Consultant: AM[facility] Transcribe Date/Time: Nov 09 2024 1:03P Dictated by : KEVON EUBANKS MD This examination was interpreted and the report reviewed and electronically signed by: KEVON EUBNAKS MD on Nov 09 2024 1:11PM EST [facility] Radiology Study observation (narrative) [facility] RF videography Hypopharynx a nd Esophagus Views W liquid and paste contrast PO during swallowingOrdered By: Ccf Provider on 11-09-2024 [facility] XR MOD BARIUM SWALLOW W SPEE Benjamin [...] and Hearing therapist report for further evaluation Wallpaper Consultant: [facility] Transcribe Date/Time: Nov 09 2024 1:03P Dictated by : KEVON EUBANKS MD This examination was interpreted and the report reviewed and electronically signed by: KEVON EUBANKS MD on Nov 09 2024 1:11PM EST [id number] [facility] CNPClarissa 11-06-2024 [facility] Telephone ([facility]) -- TELMA TINEO ([id number]) 1940 F Date Time Provider Department 11/06/24 [...] RN 11/06/2024 11:03 AM Signed Patient's son Timothy notified of results and [...] Elevated lipase [R74.8] Order(s):LIPASE [SQLIPA] Order #: [id number] FUTURE US ABD RIGHT UPPER QUADRANT [[id number]] Order #: [id number] FUTURE CONSULT TO ENDOCRINOLOGY [1019] Order #: [id number]: 1 FUTURE Prescriptions as of 11/14/2024 - [...] with meals. - Blood Pressure Test Kit-Large (Pivot ARM BP MONITOR) 1 Each once daily. [...] 05/20/2023 Impaired cognition [R41.89] 05/20/2023 Diagnosed: 05/20/2023 intermediate current use of anticoagulant therapy *05/20/2023 Diagnosed: 05/20/2023 Neck pain [M54.2] 05/20/2023 05/20/2023 Diagnosed: 05/20/2023 Cerebrovascular accident (CVA) (HCC) [I63.9] 05/20/2023 Diagnosed: 05/20/2023 Encounter Status:Closed by HENOK MARTINEZ on 11/14/24 Normal [facility] ALBUMIN/CREATININE RATIO, UR INEon 11-05-2024 Albumin DL <= 20 mg/L (U) [Mass/Vol] 43.1 mg/L Normal [facility] Comment on above: Order Comment: Speci men Type: URINE SPECIMEN Ordering Facility: [facility] Address: [address] [place] [address] Performed By: #### U ACR #### [facility] CLIA [id number] [address] [place] [address] [place] Albumin/Creatinine (U) [Mass ratio] 53 mg/g High <30 [facility] Comment on above: Order Comment: Speci men Type: URINE SPECIMEN Ordering Facility: [facility] Address: [address] [place] [address] Result Comment: Adul t Male and Female Nephrotic Criteria: <30 mg/g is considered normal to mildly increased 30-300 mg/g is considered moderately increased >300 mg/g is considered severely increased KDIGO. (2013). KDIGO 2012 Clinical Practice Guideline for the Evaluation and Management of Chronic Kidney Disease. Official Journal of the International Society of Nephrology, 3(1), 1-150. Performed By: #### U ACR #### [facility] CLIA [id number] [address] [place] [address] [place] Creatinine (U) [Mass/Vol] 81.6 mg/dL Normal 20.0-300.0 [facility] Comment on above: Order Comment: Speci men Type: URINE SPECIMEN Ordering Facility: [facility] Address: [address] [place] [address] Performed By: #### U ACR #### [facility] CLIA [id number] [address] [place] [address] [place] CBC W Auto Differential pane l (Bld)on 11-05-2024 Basophils (Bld) [#/Vol] 0.04 10*3/uL Normal <0.11 [facility] Comment on above: Order Comment: Speci men Type: BLOOD SPECIMEN Ordering Facility: [facility] Address: [address] [place] [address] Performed By: #### 5 7021-8 #### [facility] CLIA [id number] [address] [place] [address] [place] Basophils/100 WBC (Bld) 0.5 % Normal [facility] Comment on above: Order Comment: Speci men Type: BLOOD SPECIMEN Ordering Facility: [facility] Address: [address] [place] [address] Performed By: #### 5 7021-8 #### [facility] CLIA [id number] [address] [place] [address] [place] Differential cell count method Nom (Bld) Auto Normal [facility] Comment on above: Order Comment: Speci men Type: BLOOD SPECIMEN Ordering Facility: [facility] Address: [address] [place] [address] Performed By: #### 5 7021-8 #### [facility] CLIA [id number] [address] [place] [address] [place] Eosinophils (Bld) [#/Vol] 0.19 10*3/uL Normal <0.46 [facility] Comment on above: Order Comment: Speci men Type: BLOOD SPECIMEN Ordering Facility: [facility] Address: [address] [place] [address] Performed By: #### 5 7021-8 #### [facility] CLIA [id number] [address] [place] [address] [place] Eosinophils/100 WBC (Bld) 2.5 % Normal [facility] Comment on above: Order Comment: Speci men Type: BLOOD SPECIMEN Ordering Facility: [facility] Address: [address] [place] [address] Performed By: #### 5 7021-8 #### [facility] CLIA [id number] [address] [place] [address] [place] Erythrocyte distribution width (RBC) [Ratio] 12.9 % Normal 11.5-15.0 [facility] Comment on above: Order Comment: Speci men Type: BLOOD SPECIMEN Ordering Facility: [facility] Address: [address] [place] [address] Performed By: #### 5 7021-8 #### [facility] CLIA [id number] [address] [place] [address] [place] Hematocrit (Bld) [Volume fraction] 39.3 % Normal 36.0-46.0 [facility] Comment on above: Order Comment: Speci men Type: BLOOD SPECIMEN Ordering Facility: [facility] Address: [address] [place] [address] Performed By: #### 5 7021-8 #### [facility] CLIA [id number] [address] [place] [address] [place] Hemoglobin (Bld) [Mass/Vol] 12.7 g/dL Normal 11.5-15.5 [facility] Comment on above: Order Comment: Speci men Type: BLOOD SPECIMEN Ordering Facility: [facility] Address: [address] [place] [address] Performed By: #### 5 7021-8 #### [facility] CLIA [id number] [address] [place] [address] [place] Immature granulocytes (Bld) [#/Vol] 0.04 10*3/uL Normal <0.10 [facility] Comment on above: Order Comment: Speci men Type: BLOOD SPECIMEN Ordering Facility: [facility] Address: [address] [place] [address] Performed By: #### 5 7021-8 #### [facility] CLIA [id number] [address] [place] [address] [place] Immature granulocytes/100 WBC (Bld) 0.5 % Normal [facility] Comment on above: Order Comment: Speci men Type: BLOOD SPECIMEN Ordering Facility: [facility] Address: [address] [place] [address] Performed By: #### 5 7021-8 #### [facility] CLIA [id number] [address] [place] [address] [place] Lymphocytes (Bld) [#/Vol] 1.92 10*3/uL Normal 1.00-4.00 [facility] Comment on above: Order Comment: Speci men Type: BLOOD SPECIMEN Ordering Facility: [facility] Address: [address] [place] [address] Performed By: #### 5 7021-8 #### [facility] CLIA [id number] [address] [place] [address] [place] Lymphocytes/100 WBC (Bld) 25.6 % Normal [facility] Comment on above: Order Comment: Speci men Type: BLOOD SPECIMEN Ordering Facility: [facility] Address: [address] [place] [address] Performed By: #### 5 7021-8 #### [facility] CLIA [id number] [address] [place] [address] [place] MCH (RBC) [Entitic mass] 29.3 pg Normal 26.0-34.0 [facility] Comment on above: Order Comment: Speci men Type: BLOOD SPECIMEN Ordering Facility: [facility] Address: [address] [place] [address] Performed By: #### 5 7021-8 #### [facility] CLIA [id number] [address] [place] [address] [place] MCHC (RBC) [Mass/Vol] 32.3 g/dL Normal 30.5-36.0 [facility] Comment on above: Order Comment: Speci men Type: BLOOD SPECIMEN Ordering Facility: [facility] Address: [address] [place] [address] Performed By: #### 5 7021-8 #### [facility] CLIA [id number] [address] [place] [address] [place] MCV (RBC) [Entitic vol] 90.8 fL Normal 80.0-100.0 [facility] Comment on above: Order Comment: Speci men Type: BLOOD SPECIMEN Ordering Facility: [facility] Address: [address] [place] [address] Performed By: #### 5 7021-8 #### [facility] CLIA [id number] [address] [place] [address] [place] Monocytes (Bld) [#/Vol] 0.65 10*3/uL Normal <0.87 [facility] Comment on above: Order Comment: Speci men Type: BLOOD SPECIMEN Ordering Facility: [facility] Address: [address] [place], [place] [address] Performed By: #### 5 7021-8 #### [facility] CLIA [id number] [address] [place] [address] [place] Monocytes/100 WBC (Bld) 8.7 % Normal [facility] Comment on above: Order Comment: Speci men Type: BLOOD SPECIMEN Ordering Facility: [facility] Address: [address] [place] [address] Performed By: #### 5 7021-8 #### [facility] CLIA [id number] [address] [place] [address] [place] Neutrophils (Bld) [#/Vol] 4.65 10*3/uL Normal 1.45-7.50 [facility] Comment on above: Order Comment: Speci men Type: BLOOD SPECIMEN Ordering Facility: [facility] Address: [address] [place] [address] Performed By: #### 5 7021-8 #### [facility] CLIA [id number] [address] [place] [address] [place] Neutrophils/100 WBC (Bld) 62.2 % Normal [facility] Comment on above: Order Comment: Speci men Type: BLOOD SPECIMEN Ordering Facility: [facility] Address: [address] [place] [address] Performed By: #### 5 7021-8 #### [facility] CLIA [id number] [address] [place] [address] [place] Nucleated RBC (Bld) [#/Vol] 10*3/uL Normal <0.01 [facility] Comment on above: Order Comment: Speci men Type: BLOOD SPECIMEN Ordering Facility: [facility] Address: [address] [place] [address] Performed By: #### 5 7021-8 #### [facility] CLIA [id number] [address] [place] [address] [place] Nucleated RBC/100 WBC (Bld) [Ratio] 0.0 /100 WBC Normal [facility] Comment on above: Order Comment: Speci men Type: BLOOD SPECIMEN Ordering Facility: [facility] Address: [address] [place] [address] Performed By: #### 5 7021-8 #### [facility] CLIA [id number] [address] [place] [address] [place] Platelet mean volume (Bld) [Entitic vol] 13.3 fL High 9.0-12.7 [facility] Comment on above: Order Comment: Speci men Type: BLOOD SPECIMEN Ordering Facility: [facility] Address: [address] [place] [address] Performed By: #### 5 7021-8 #### [facility] CLIA [id number] [address] [place] [address] [place] Platelets (Bld) [#/Vol] 209 10*3/uL Normal 150-400 [facility] Comment on above: Order Comment: Speci men Type: BLOOD SPECIMEN Ordering Facility: [facility] Address: [address] [place] [address] Performed By: #### 5 7021-8 #### [facility] CLIA [id number] [address] [place] [address] [place] RBC (Bld) [#/Vol] 4.33 10*6/uL Normal 3.90-5.20 [facility] Comment on above: Order Comment: Speci men Type: BLOOD SPECIMEN Ordering Facility: [facility] Address: [address] [place] [address] Performed By: #### 5 7021-8 #### [facility] CLIA [id number] [address] [place] [address] [place] WBC (Bld) [#/Vol] 7.49 10*3/uL Normal 3.70-11.00 [facility] Comment on above: Order Comment: Speci men Type: BLOOD SPECIMEN Ordering Facility: [facility] Address: [address] [place] [address] Performed By: #### 5 7021-8 #### [facility] CLIA [id number] [address] [place] [address] [place] Comprehensive metabolic 2000 panelon 11-05-2024 Albumin [Mass/Vol] 4.3 g/dL Normal 3.9-4.9 [facility] Comment on above: Order Comment: Speci men Type: BLOOD SPECIMEN Ordering Facility: [facility] Address: [address] [place] [address] Performed By: #### 3 040-3, 09861-2, 26183-3 #### [facility] CLIA [id number] [address] [place] [address] [place] ALP [Catalytic activity/Vol] 123 U/L Normal 34-123 [facility] Comment on above: Order Comment: Speci men Type: BLOOD SPECIMEN Ordering Facility: [facility] Address: [address] [place] [address] Performed By: #### 3 040-3, 06594-1, 21513-5 #### [facility] CLIA [id number] [address] [place] [address] [place] ALT [Catalytic activity/Vol] 19 U/L Normal 7-38 [facility] Comment on above: Order Comment: Speci men Type: BLOOD SPECIMEN Ordering Facility: [facility] Address: [address] [place] [address] Performed By: #### 3 040-3, 37843-8, 53087-6 #### [facility] CLIA [id number] [address] [place] [address] [place] Anion gap [Moles/Vol] 11 mmol/L Normal 8-15 [facility] Comment on above: Order Comment: Speci men Type: BLOOD SPECIMEN Ordering Facility: [facility] Address: [address] [place] [address] Performed By: #### 3 040-3, 97030-3, 39642-3 #### [facility] CLIA [id number] [address] [place] [address] [place] AST [Catalytic activity/Vol] 20 U/L Normal 13-35 [facility] Comment on above: Order Comment: Speci men Type: BLOOD SPECIMEN Ordering Facility: [facility] Address: [address] [place] [address] Performed By: #### 3 040-3, 14238-7, #### [facility] CLIA [id number] [address] [place] [address] [place] Bilirubin [Mass/Vol] 0.5 mg/dL Normal 0.2-1.3 [facility] Comment on above: Order Comment: Speci men Type: BLOOD SPECIMEN Ordering Facility: [facility] Address: [address] [place] [address] Performed By: #### 3 040-3, 73229-0, #### [facility] CLIA [id number] [address] [place] [address] [place] Calcium [Mass/Vol] 9.9 mg/dL Normal 8.5-10.2 [facility] Comment on above: Order Comment: Speci men Type: BLOOD SPECIMEN Ordering Facility: [facility] Address: [address] [place] [address] Performed By: #### 3 040-3, 33149-7, #### [facility] CLIA [id number] [address] [place], [place] [id number] [place] Chloride [Moles/Vol] 103 mmol/L Normal 98-107 [facility] Comment on above: Order Comment: Speci men Type: BLOOD SPECIMEN Ordering Facility: [facility] Address: [address] [place], [place] [address] Performed By: #### 3 040-3, 60550-9, 18364-7 #### [facility] CLIA [id number] [address] [place] [address] [place] CO2 [Moles/Vol] 24 mmol/L Normal 22-30 [facility] Comment on above: Order Comment: Speci men Type: BLOOD SPECIMEN Ordering Facility: [facility] Address: [address] [place] [address] Performed By: #### 3 040-3, 73106-7, #### [facility] CLIA [id number] [address] [place] [address] [place] Creatinine [Mass/Vol] 0.74 mg/dL Normal 0.58-0.96 [facility] Comment on above: Order Comment: Speci men Type: BLOOD SPECIMEN Ordering Facility: [facility] Address: [address] [place] [address] Performed By: #### 3 040-3, , #### [facility] CLIA [id number] [address] [place] [address] [place] Creatinine and Glomerular filtration rate.predicted panel (S/P/Bld) 80 mL/min/1.73m??? Normal >=60 [facility] Comment on above: Order Comment: Speci men Type: BLOOD SPECIMEN Ordering Facility: [facility] Address: [address] [place] [address] Result Comment: Kya mated Glomerular Filtration Rate [...] actual GFR. Performed By: #### 3 040-3, 77584-7, #### [facility] CLIA [id number] [address] [place] [address] [place] Glucose [Mass/Vol] 316 mg/dL High 74-99 [facility] Comment on above: Order Comment: Specbertrand stinson Type: BLOOD SPECIMEN Ordering Facility: [facility] Address: [address] [place] [address] Result Comment: The [place] Diabetes Association (ADA) provides guidance for cutoff [...] Standards of Medical Care in Diabetes 2016, [place] Diabetes Association. Diabetes Care. 2016.39(Suppl 1). Performed By: #### 3 040-3, 90493-7, 30254-6 #### [facility] CLIA [id number] [address] [place] [address] [place] Potassium [Moles/Vol] 4.4 mmol/L Normal 3.7-5.1 [facility] Comment on above: Order Comment: Dayron stinson Type: BLOOD SPECIMEN Ordering Facility: [facility] Address: [address] [place] [address] Performed By: #### 3 040-3, 02197-2, 64516-7 #### [facility] CLIA [id number] [address] [place] [address] [place] Protein [Mass/Vol] 7.3 g/dL Normal 6.3-8.0 [facility] Comment on above: Order Comment: Dayron stinson Type: BLOOD SPECIMEN Ordering Facility: [facility] Address: [address] [place] [address] Performed By: #### 3 040-3, 54150-6, 48460-2 #### [facility] CLIA [id number] [address] [place] [address] [place] Sodium [Moles/Vol] 138 mmol/L Normal 136-144 [facility] Comment on above: Order Comment: Dayron stinson Type: BLOOD SPECIMEN Ordering Facility: [facility] Address: [address] [place] [address] Performed By: #### 3 040-3, 97419-4, 61142-3 #### [facility] CLIA [id number] [address] [place] [address] [place] Urea nitrogen [Mass/Vol] 11 mg/dL Normal 7-21 [facility] Comment on above: Order Comment: Dayron stinson Type: BLOOD SPECIMEN Ordering Facility: [facility] Address: [address] [place] [address] Performed By: #### 3 040-3, 67211-2, 33796-3 #### [facility] CLIA [id number] [address] [place] [address] [place] HbA1c (Bld)on 11-05-2024 Average glucose Estimated from glycated hemoglobin (Bld) [Mass/Vol] 258 mg/dL Normal [facility] Comment on above: Order Comment: Dayron stinson Type: BLOOD SPECIMEN Ordering Facility: [facility] Address: [address] [place] [address] Result Comment: eAG: (Estimated average glucose) is a calculated value from HgbA1c and is operations representative of the average blood glucose level in the last 2-3 month period. Performed By: #### 5 7021-8 #### [facility] CLIA [id number] [address] [place] [address] [place] HbA1c (Bld) [Mass fraction] 10.6 % High 4.3-5.6 [facility] Comment on above: Order Comment: Dayron stinson Type: BLOOD SPECIMEN Ordering Facility: [facility] Address: [address] [place] [address] Result Comment: [place] Diabetes Association guidelines indicate that patients with HgbA1c in the range 5.7-6.4% are at increased risk for development of diabetes, and intervention by lifestyle modification may be beneficial. HgbA1c greater or equal to 6.5% is considered diagnostic of diabetes. Performed By: #### 5 7021-8 #### [facility] CLIA [id number] [address] [id number] [place] Lipase SerPl-cCncon 11-05-19 25 Lipase [Catalytic activity/Vol] 123 U/L High 16-61 [facility] Comment on above: Order Comment: Speci men Type: BLOOD SPECIMEN Ordering Facility: [facility] Address: [address] [place] [address] Performed By: #### 3 040-3, 58298-7, 43541-3 #### [facility] CLIA [id number] [address] [place] [address] [place] Lipid 1996 panelon 5 Cholesterol [Mass/Vol] 139 mg/dL Normal <200 [facility] Comment on above: Order Comment: Speci men Type: BLOOD SPECIMENOrdering Facility: [facility] Address: [address] [place] [address] Result Comment: <200 mg/dL, Desirable 200-239 mg/dL, Borderline high >239 mg/dL, High Performed By: #### 3 040-3, 74111-0, 61072-6 ####[facility] [id number] [address] [place] Cholesterol in HDL [Mass/Vol] 56 mg/dL Normal >39 [facility] Comment on above: Order Comment: Speci [facility] Type: BLOOD SPECIMENOrdering Facility: [facility] Address: [address] [place] [address] Result Comment: 40-5 9 mg/dL, Acceptable >59 mg/dL, High: Negative risk factor for coronary heart disease <40 mg/dL, Low: Positive risk factor for coronary heart disease Performed By: #### 3 040-3, 90435-7, 62540-7 ####[facility] [id number] [place] [address] [place] Cholesterol in LDL [Mass/Vol] 64 mg/dL Normal <100 [facility] Comment on above: Order Comment: Speci men Type: BLOOD SPECIMENOrdering Facility: [facility] Address: [address] [place] [address] Result Comment: <100 mg/dL, Optimal 100-129 mg/dL, Near optimal/above optimal 130-159 mg/dL, Borderline high 160-189 mg/dL, High >189 mg/dL, Very high Secondary prevention optimal LDL Cholesterol levels are recommended to be < 70 mg/dL Performed By: #### 3 040-3, 34515-3, 60316-4 ####[facility] [id number] [address] [place] Cholesterol in LDL/Cholesterol in HDL [Mass ratio] 1.14 {ratio} Normal <2.54 [facility] Comment on above: Order Comment: Speci men Type: BLOOD SPECIMENOrdering Facility: [facility] Address: [address] [place] [address] Result Comment: Refe nirmalace: 1. National Cholesterol Education Program ATP III Guideline At-A-Glance Quick Desk Reference: National Heart, Lung, and Blood [place]. National Institutes of Health. 2001: NIH Publication No. 01-3305. 2. An International Atherosclerosis Society position paper: global recommendations for the management of dyslipidemia: executive summary, Atherosclerosis. 2014: 232(2):410-413. Performed By: #### 3 040-3, 73426-6, 79268-8 ####[facility] [id number] [place] [address] [place] Cholesterol in VLDL [Mass/Vol] 19 mg/dL Normal <30 [facility] Comment on above: Order Comment: Speci men Type: BLOOD SPECIMENOrdering Facility: [facility] Address: [address] [place] [address] Performed By: #### 3 040-3, 38049-1, 70770-1 ####[facility] [id number] [place] [address] [place] Cholesterol non HDL [Mass/Vol] 83 mg/dL Normal <130 [facility] Comment on above: Order Comment: Speci men Type: BLOOD SPECIMENOrdering Facility: [facility] Address: [address] [place] [address] Result Comment: <130 mg/dL, Optimal 130-159 mg/dL, Near optimal/above optimal 160-189 mg/dL, Borderline high 190-219 mg/dL, High >219 mg/dL, Very high Secondary prevention optimal non HDL Cholesterol levels are recommended to be <100 mg/dL Performed By: #### 3 040-3, 73250-2, 00131-1 ####[facility] [id number] [place] [address] [place] Cholesterol.total/Chol esterol in HDL [Mass ratio] 2.48 {ratio} Normal <5.10 [facility] Comment on above: Order Comment: Speci men Type: BLOOD SPECIMENOrdering Facility: [facility] Address: [address] [place] [address] Performed By: #### 3 040-3, 87381-1, 28882-4 ####[facility]IA [id number] [place] [address] [place] FASTING TIME 12 hrs Normal [facility] Comment on above: Order Comment: Speci men Type: BLOOD SPECIMENOrdering Facility: [facility] Address: [address] [place] [address] Performed By: #### 3 040-3, 72182-9, 72318-6 ####[facility] [id number] [place] [address] [place] Triglyceride [Mass/Vol] 96 mg/dL Normal <150 [facility] Comment on above: Order Comment: Speci men Type: BLOOD SPECIMENOrdering Facility: [facility] Address: [address] [place] [address] Result Comment: <150 mg/dL, Normal 150-199 mg/dL, Borderline high 200-499 mg/dL, High >499 mg/dL, Very high Performed By: #### 3 040-3, 41746-6, 98845-0 ####[facility] [id number] [facility] [id number] [address] [place] XR CHEST 2V [...] tissues: Unremarkable. IMPRESSION: No acute radiographic abnormality. Wallpaper Consultant: AMBER Transcribe Date/Time: Nov 05 2024 12:03P Dictated by : VELASQUEZ BENTON MD This examination was interpreted and the report reviewed and electronically signed by: VELASQUEZ BENTON MD on Nov 05 2024 12:05PM EST [id number] Normal [facility] XR Chest PA and Lateralon IMPRESSION: No acute radiographic abnormality. Wallpaper Consultant: [facility] Transcribe Date/Time: Nov 05 2024 12:03P Dictated [...] Unremarkable. IMPRESSION IMPRESSION: No acute radiographic abnormality. [facility] Trans[facility] Date/Time: Nov 05 2024 12:03P Dictated by : VELASQUEZ BENTON MD This examination was interpreted and the report reviewed and electronically signed by: VELASQUEZ BENTON MD on Nov 05 2024 12:05PM [facility] Radiology Study observation (narrative) [facility] XR Chest PA and LateralOrder ed By: Ccf Provider on 11-05-2024 [facility] CNOVon 11-04-2024 CNOV Office Visit (FAMPWS ) -- TELMA TINEO ([id number]) 1940 F Date Time Provider Department 11/04/24 [...] day with meals. Blood Pressure Test Kit-Large (Pivot ARM BP MONITOR) 1 Each once daily. [...] General appearanc (more content not included)... Normal [facility] CNOVon 10-13-2024 CNOV Office Visit (FAMPWS ) -- TELMA TINEO ([id number]) 1940 F Date Time Provider Department 10/13/24 2:40 [facility] visit today, we recorded the following information about you: Temperature Pulse Respiration Blood pressure 99.3 degrees 67/minute 16/minute 124/68 Weight 73.5 kg Virginia [place], CORPORATE DIRECTOR TALENT ASSESSMENT.[employer]TRID[employer] F[employer]ER 10/13/2024 3:06 PM Signed This is a [...] day with meals. Blood Pressure Test Kit-Large (Pivot ARM BP MONITOR) 1 Each once daily. [...] bronchitis, unsp (more content not included)... Normal [facility] PT D/C Summary (1)on 024 PT D/C Summary (1) [facility] Physical Therapy Health[address] [place] [address] / REHABILITATION SERVICES DISCHARGE SUMMARY MR#: [id number] Acct: [id number] Name: TELMA TINEO Rep #: [id number] : 1940 84 From: Zeke Miguel PT, Cert. T, [facility] Referring Dr.: Dr. Henok Martinez [...] please feel free to call me at [phone]. Thank you for the referral of this patient. Sincerely, Zeke Miguel PT, Cert MDT, OCS Balance/Gait/Functional tests Balance/Special Test Scores Oswestry Neck Score: 23 Improvement % Improvement: 90 09/17/24 1713 CC: Dr. Henok Martinez MD JLA Signed Normal [facility] Inital Evaluation (1) - PTon 07-16-2024 Inital Evaluation (1) - PT [facility] Physical Therapy Health[address] [place] [address] / REHABILITATION SERVICES INITIAL EVALUATION MR#: [id number] Acct: [id number] Name: TELMA TINEO Rep #: [id number] : 1940 84 From: Zeke Miguel PT, [...] to be FAXED BACK to us at [phone] for Medicare purposes. For Medicare only, by signing this I certify the plan of care. Please let me know if there are questions or concerns regarding this plan of care. Physician Signature: Date: 07/17 (more content not included)... Normal [facility] Neurology Visit Reporton Neurology Visit Report [facility] [address], [address] [place] [address] OFFICE VISIT Date of Service: 07/09/24 MR#: [id number] Acct: [id number] Name: TELMA TINEO Rep #: [id number] : 1940 Provider: Dr. Jatinder arrieta MD Age/Sex: 84/F Location: [facility]. Status: Signed HPI HPI Chief Complaint: Details: [...] and 26/30 in May 2023. She speaks [place]ik as her [place] language, and Haitian as her second language. She was previously [...] were r (more content not included)... Normal [facility] CNOVon 07-01-2024 CNOV Office Visit (FAMPWS ) -- TELMA TINEO ([id number]) 1940 F Date Time Provider Department 07/01/24 3:40 PM HENOK MARTINEZ [facility] During your visit today, we recorded the [...] arm pain with chest pain. Which facility: [facility] Date of visit: 06/25/24 Diagnosis: Cervical [...] day with meals. Blood Pressure Test Kit-Large (Pivot ARM BP MONITOR) 1 Each once daily. [...] nourished. Skin (more content not included)... Normal [facility] 12 Lead EKGon 06-25-2024 12 Lead EKG [facility] Cardiovascular Services [address] [place] [address] 12 Lead EKG 06/25/24 1529 MR#: [id number] Acct: [id number] Name: TELMA TINEO Rep #: [id number] : 1940 84 From: Bela Mckeon MD [...] ischemia Abnormal ECG Confirmed by Bela Mckeon ([id number]), editor city CARLOS HARRIS ([id number]) on 06/26/2024 8:19:14 AM Referred By: Confirmed By:Bela Mckeon 06/26/24818 Date Bela Mckeon MD CC: Dr. Guille Garnica MD; Dr. Henok Martinez MD Signed Normal [facility] Basic Metabolic Profile (BMP )on 06-25-2024 BUN/CRE 19.6 RATIO Normal 10-20 [facility] Comment on above: Order Comment: 1 Y Performed By: #### L 501.5425, L500.2500, L100.0100 #### [facility] [address] [place], [address] CA,Total 9.6 mg/dL Normal 8.5-10.1 [facility] Comment on above: Order Comment: 1 Y Performed By: #### L 501.5425, L500.2500, L100.0100 #### [facility] [address] [place], [address] Chloride [Moles/Vol] 106 mmol/L Normal 98-107 [facility] Comment on above: Order Comment: 1 Y Performed By: #### L 501.5425, L500.2500, L100.0100 #### [facility] [address] [place], [address] CO2 [Moles/Vol] 24.0 mmol/L Normal 21.0-32.0 [facility] Comment on above: Order Comment: 1 Y Performed By: #### L 501.5425, L500.2500, L100.0100 #### [facility] [address] [place], [address] Creatinine [Mass/Vol] 0.87 mg/dL Normal 0.55-1.02 [facility] Comment on above: Order Comment: 1 Y Result Comment: The validity of the calculated GFR GFRAA in patients over 70 years has not been determined. Clinical correlation is essential. Performed By: #### L 501.5425, L500.2500, L100.0100 #### [facility] [address] [place], [address] ECRCL 43.36 ml/min Normal [facility] Comment on above: Order Comment: 1 Y Performed By: #### L 501.5425, L500.2500, L100.0100 #### [facility] [address] [place], [address] EST GFR - AA 80 mL/min Normal >60 [facility] Comment on above: Order Comment: 1 Y Result Comment: Afri can [place]ian GFR Calc Performed By: #### L 501.5425, L500.2500, L100.0100 #### [facility] [address] [place], [address] GAP 6 Normal 5-15 [facility] Comment on above: Order Comment: 1 Y Performed By: #### L 501.5425, L500.2500, L100.0100 #### [facility] [address] [place], [address] GFR/1.73 sq M.predicted among non-blacks MDRD (S/P/Bld) [Vol rate/Area] 66 mL/min/{1.73_m2} Normal >60 [facility] Comment on above: Order Comment: 1 Y Result Comment: Non- GFR Calc Performed By: #### L 501.5425, L500.2500, L100.0100 #### [facility] [address] [place], [address] Glucose [Mass/Vol] 273 mg/dL High 74-106 [facility] Comment on above: Order Comment: 1 Y Result Comment: Gluc ose result greater than or equal to 200 mg/dL suggests DIABETES MELLITUS per A.D.A. criteria. Performed By: #### L 501.5425, L500.2500, L100.0100 #### [facility] [address] [place], [address] Potassium [Moles/Vol] 4.7 mmol/L Normal 3.5-5.1 [facility] Comment on above: Order Comment: 1 Y Performed By: #### L 501.5425, L500.2500, L100.0100 #### [facility] [address] [place], [address] Sodium [Moles/Vol] 136 mmol/L Normal 136-145 [facility] Comment on above: Order Comment: 1 Y Performed By: #### L 501.5425, L500.2500, L100.0100 #### [facility] [address] [place], [address] Urea nitrogen [Mass/Vol] 17 mg/dL Normal 7-18 [facility] Comment on above: Order Comment: 1 Y Performed By: #### L 501.5425, L500.2500, L100.0100 #### [facility] [address] [place], [address] Brain/Head without Contrasto n 06-25-2024 Brain/Head without Contrast [facility] Imaging Services [address] [place] [address] Brain/Head without Contrast MR#: [id number] Acct: [id number] Name: TELMA TINEO Rep #: [id number] : 1940 F 84 From: Drew Walter DO PCP: Dr. Henok Martinez MD Status: REG ER Study: Brain/Head without Contrast Date of Exam: 05/29 07/21 Exam# [id number] Ordering Dr: Guille Garnica MD [id number] STUDY: CT BRAIN WITHOUT CONTRAST REASON FOR [...] 16:26 EDT Reading Location ID and State: [facility] / [place] Tel [phone], Service support , CC: Dr. Guille Garnica MD; Dr. Henok Martinez MD Wallpaper Consultant: Signed Normal [facility] CBC W/Diff, Automatedon 08-2 Absolute Lymph 1.29 X10 3/uL Normal 0.83-4.51 [facility] Comment on above: Performed By: #### L 501.5425, L500.2500, L100.0100 #### [facility] [address] [place], [place], [id number] Absolute Neut 7.1 X10 3/uL Normal 2.0-7.7 [facility] Comment on above: Performed By: #### L 501.5425, L500.2500, L100.0100 #### [facility] [address] [place], [address] Basophils/100 WBC (Bld) 0.3 % Normal 0-1 [facility] Comment on above: Performed By: #### L 501.5425, L500.2500, L100.0100 #### [facility] [address] [place], [address] Eosinophils/100 WBC (Bld) 1.4 % Normal 0-5 [facility] Comment on above: Performed By: #### L 501.5425, L500.2500, L100.0100 #### [facility] [address] [place], [address] Erythrocyte distribution width (RBC) [Ratio] 13.2 % Normal 11.6-14.6 [facility] Comment on above: Performed By: #### L 501.5425, L500.2500, L100.0100 #### [facility] [address] [place], [address] Hematocrit (Bld) [Volume fraction] 35.4 % Low 37-47 [facility] Comment on above: Performed By: #### L 501.5425, L500.2500, L100.0100 #### [facility] [address] [place], [address] Hemoglobin (Bld) [Mass/Vol] 11.4 g/dL Low 12.0-15.0 [facility] Comment on above: Performed By: #### L 501.5425, L500.2500, L100.0100 #### [facility] [address] [place], [address] IG% 0.300 Normal 0.0-0.9 [facility] Comment on above: Result Comment: IG% - Immature Granulocytes (promyelocytes, myelocytes and metamyelocytes) > 1% indicates that a LEFT SHIFT is Present. Performed By: #### L 501.5425, L500.2500, L100.0100 #### [facility] [address] [place], [address] Lymphocytes/100 WBC (Bld) 13.5 % Low 19-41 [facility] Comment on above: Performed By: #### L 501.5425, L500.2500, L100.0100 #### [facility] [address] [place], [address] MCH (RBC) [Entitic mass] 29.4 pg Normal 27.0-32.0 [facility] Comment on above: Performed By: #### L 501.5425, L500.2500, L100.0100 #### [facility] [address] [place], [address] MCHC (RBC) [Mass/Vol] 32.2 g/dL Normal 32-36 [facility] Comment on above: Performed By: #### L 501.5425, L500.2500, L100.0100 #### [facility] [address] [place], [address] MCV (RBC) [Entitic vol] 91.2 fL Normal 81-99 [facility] Comment on above: Performed By: #### L 501.5425, L500.2500, L100.0100 #### [facility] [address] [place], [address] Monocytes/100 WBC (Bld) 10.5 % High 0-10 [facility] Comment on above: Performed By: #### L 501.5425, L500.2500, L100.0100 #### [facility] [address] [place], [address] Neutrophils/100 WBC (Bld) 74.0 % High 47-70 [facility] Comment on above: Performed By: #### L 501.5425, L500.2500, L100.0100 #### [facility] [address] [place], [address] Nucleated RBC (Bld) [#/Vol] 0 10*3/uL Normal 0-5 [facility] Comment on above: Performed By: #### L 501.5425, L500.2500, L100.0100 #### [facility] [address] [place], [address] Platelet mean volume (Bld) [Entitic vol] 12.3 fL High 6.2-12.0 [facility] Comment on above: Performed By: #### L 501.5425, L500.2500, L100.0100 #### [facility] [address] [place], [address] Platelets (Bld) [#/Vol] 200 10*3/uL Normal 150-450 [facility] Comment on above: Performed By: #### L 501.5425, L500.2500, L100.0100 #### [facility] [address] [place], [address] RBC (Bld) [#/Vol] 3.88 10*6/uL Low 4.2-5.4 [facility] Comment on above: Performed By: #### L 501.5425, L500.2500, L100.0100 #### [facility] [address] [place], [address] RDW SD 43.8 fl Normal 35.1-43.9 [facility] Comment on above: Performed By: #### L 501.5425, L500.2500, L100.0100 #### [facility] [address] [place], [address] WBC (Bld) [#/Vol] 9.5 10*3/uL Normal 4.4-11.0 [facility] Comment on above: Performed By: #### L 501.5425, L500.2500, L100.0100 #### [facility] [address] [place], [address] Chest 1 View (Portable)on Chest 1 View (Portable) [facility] Imaging Services [address] [place] [address] Chest 1 View (Portable) MR#: [id number] Acct: [id number] Name: TELMA TINEO Rep #: [id number] : 1940 F 84 From: Drew Walter DO PCP: Dr. Henok Martinez MD Status: REG ER Study: Chest 1 View (Portable) Date of Exam: 06/25/24 Exam# [id number] Ordering Dr: Guille Garnica MD [id number] INDICATION: chest pain EXAMINATION/TECHNIQUE: X-RAY - XR [...] 17:44 EDT Reading Location ID and State: [facility] / [place] Tel [phone], Service support , CC: Dr. Guille Garnica MD; Dr. Henok Martinez MD Wallpaper Consultant: Signed Normal [facility] Emergency Department Summary on 06-25-2024 Emergency Department Summary [facility] Medical Records Department [address] [place] [address] Emergency Department Summary 06/25/24 MR#: [id number] Acct: [id number] Name: TELMA TINEO Rep #: [id number] : 1940 84 From: Guille Garnica MD [...] denies any exacerbating or alleviating factors. [facility] Medical History (Updated 06/25/24 @ 18:05 by [...] Pressure Me (more content not included)... Normal [facility] L501.4020on 06-25-2024 TROPONIN-I HS 28 pg/mL Normal 3.0-54.0 [facility] Comment on above: Result Comment: Plea se Note: New Test Units and Gender Specific Reference Ranges. For more information see Policy Stat Procedure [place] High Sensitivity Troponin (TNIH) and attachments. Performed By: #### L 501.4020 ####[facility] [id number] [place], [address] L501.5425on 06-25-2024 TROPONIN-I HS 29 pg/mL Normal 3.0-54.0 [facility] Comment on above: Order Comment: 1 Y Result Comment: Plea se Note: New Test Units and Gender Specific Reference Ranges. For more information see Policy Stat Procedure [place] High Sensitivity Troponin (TNIH) and attachments. Performed By: #### L 501.5425, L500.2500, L100.0100 #### [facility] [address] [place], [address] Spine Cervical without Contr ason 06-25-2024 Spine Cervical without Contras [facility] Imaging Services [address] [place] [address] Spine Cervical without Contras MR#: [id number] Acct: [id number] Name: TELMA TINEO Rep #: [id number] : 1940 F 84 From: Drew Walter DO PCP: Dr. Henok Martinez MD Status: REG ER Study: Spine Cervical without Contras Date of Exam: 0 06/25/24 Exam# [id number] Ordering Dr: Guille Garnica MD [id number] STUDY: CT CERVICAL SPINE WITHOUT CONTRAST REASON [...] Guille Garnica MD; Dr. Henok Martinez MD Wallpaper Consultant: Signed Normal [facility] XR Ribs - right Views and est PAon 06-11-2024 IMPRESSION: No acute findings. Wallpaper Consultant: AMBER Transcribe Date/Time: Jun 11 2024 6:48A Dictated by : CHANEL NARAYANAN MD This examination was interpreted and the report reviewed and electronically signed by: CHANEL NARAYANAN MD on Jun 11 2024 6:49AM [facility] DIVISION OF RADIOLOGY * * *Final Report* [...] bony destruction. - DIVISION OF RADIOLOGY Provider, [facility] - 06/11/2024 * * *Final [...] destruction. - IMPRESSION IMPRESSION: No acute findings. Wallpaper Consultant: AMBER Transcribe Date/Time: Jun 11 2024 6:48A Dictated by : CHANEL NARAYANAN MD This examination was interpreted and the report reviewed and electronically signed by: CHANEL NARAYANAN MD on Jun 11 2024 6:49AM EST [facility] XR Ribs - right Views and Ch est PAOrdered By: Ccf Provider on 06-11-2024 [facility] XR RIB/CHST 3V AP RIB/OBL/CH ST [facility] [...] bony destruction. - IMPRESSION: No acute findings. Wallpaper Consultant: PSCB Transcribe Date/Time: Jun 11 2024 6:48A Dictated by : CHANEL NARAYANAN MD This examination was interpreted and the report reviewed and electronically signed by: CHANEL NARAYANAN MD on Jun 11 2024 6:49AM EST [id number] Normal [facility] XR Ribs - right Views and Ch est PAon 06-06-2024 Radiology Study observation (narrative) [facility] CNOVon 06-05-2024 CNOV Office Visit (PULMWS ) -- TELMA TINEO ([id number]) 1940 F Date Time Provider Department 06/05/24 11:45 AM NANCY MEDLEY PULMWS During your visit today, we recorded the following information about you: Weight 73.5 kg Nancy Medley MD 06/05/2024 3:10 PM Signed 0. Respiratory [place] Note Patient name: Telma Tineo PCP: Henok [...] day with meals. Blood Pressure Test Kit-Large (Pivot ARM BP MONITOR) 1 Each once daily. [...] HPI. GI (more content not included)... Normal [facility] XR Chest PA and Lateralon IMPRESSION: No acute radiographic abnormality. Wallpaper Consultant: PSCB Transcribe Date/Time: May 05 2024 7:52A Dictated by : NANCY CLARKE MD This examination was interpreted and the report reviewed and electronically signed by: NANCY CLARKE MD on May 05 2024 7:52AM [facility] DIVISION OF RADIOLOGY * * *Final Report* [...] unchanged. No pneumothorax. DIVISION OF RADIOLOGY [facility] * * *Final Report* [...] pneumothorax. IMPRESSION IMPRESSION: No acute radiographic abnormality. Wallpaper Consultant: PSCB Transcribe Date/Time: May 05 2024 7:52A Dictated by : NANCY CLARKE MD This examination was interpreted and the report reviewed and electronically signed by: NANCY CLARKE MD on May 05 2024 7:52AM EST [facility] XR Chest PA and LateralOrder ed By: Ccf Provider on 05-05-2024 [facility] XR Chest PA and Lateralon Radiology Study observation (narrative) [facility] Cardiology Visit Reporton Cardiology Visit Report [facility] [address] [place], [place] [address] OFFICE VISIT Date of Service: 04/28/24 MR#: [id number] Acct: [id number] Name: TELMA TINEO Rep #: [id number] : 1940 Provider: Dr. 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 Normal [facility] XR Chest PA and Lateralon IMPRESSION: Questionable lung nodules. Consider short-term follow-up. Wallpaper Consultant: AMBER Transcribe Date/Time: Mar 05 2024 5:02P Dictated by : ZULLY CEDENO MD This examination was interpreted and the report reviewed and electronically signed by: ZULLY CEDENO MD on Mar 05 2024 5:03PM [facility] DIVISION OF RADIOLOGY * * *Final Report* [...] changes. DIVISION OF RADIOLOGY Provider, Molly Chaka [place] - 03/05/2024 * * *Final Report* * [...] IMPRESSION: Questionable lung nodules. Consider short-term follow-up. Wallpaper Consultant: AMBER Transcribe Date/Time: Mar 05 2024 5:02P Dictated by : ZULLY CEDENO MD This examination was interpreted and the report reviewed and electronically signed by: ZULLY CEDENO MD on Mar 05 2024 5:03PM EST [facility] XR Chest PA and LateralOrder ed By: Ccf Provider on 03-05-2024 [facility] XR Chest PA and Lateralon Radiology Study observation (narrative) [facility] Absolute lymphocyte countOrd ered By: Gabe Foster on 02-25-2024 Lymphocytes Auto (Unsp spec) [#/Vol] 0.73 10*3/uL 0.83-4.51 [facility] Automated lymphocyte count a s percentage of total leukocytesOrdered By: Gabe Foster on 02-25-2024 Lymphocytes/100 WBC Auto (Unsp spec) 9.0 % 19-41 [facility] Basophil percentageOrdered B y: Gabe Foster on 02-25-2024 Basophil percentage 0 SEEN /hpf 0-5 [facility] Basophils/100 WBC (Bld) 0.4 % 0-1 [facility] Chloride [Moles/Vol] 97 mmol/L 98-107 [facility] Eosinophils/100 WBC (Bld) 0.2 % 0-5 [facility] Glucose [Mass/Vol] 270 mg/dL 74-106 [facility] Comment on above: Glucose result great er than or equal to 200 mg/dLsuggests DIABETES MELLITUS per A.D.A. criteria. Hemoglobin (Bld) [Mass/Vol] 12.5 g/dL 12.0-15.0 [facility] Monocytes/100 WBC (Bld) 13.1 % 0-10 [facility] Neutrophils (Bld) [#/Vol] 6.2 10*3/uL 2.0-7.7 [facility] Neutrophils/100 WBC (Bld) 76.3 % 47-70 [facility] Potassium [Moles/Vol] 3.8 mmol/L 3.5-5.1 [facility] Sodium [Moles/Vol] 129 mmol/L 136-145 [facility] WBC (Bld) [#/Vol] 8.1 10*3/uL 4.4-11.0 [facility] Bilirubin Test strip Ql (U)O rdered By: Gabe Foster on 02-25-2024 Bilirubin Ql (U) Negative Negative [facility] Determination of erythrocyte mean corpuscular volume (MCV)Ordered By: Gabe Foster on 02-25-2024 MCV (RBC) [Entitic vol] 87.9 fL 81-99 [facility] Erythrocyte distribution wid th ratioOrdered By: Gabe Foster on 02-25-2024 Erythrocyte distribution width (RBC) [Ratio] 12.9 % 11.6-14.6 [facility] Erythrocyte distribution wid th standard deviationOrdered By: Gabe Foster on 02-25-2024 Erythrocyte distribution width (RBC) [Entitic vol] 41.6 fL 35.1-43.9 [facility] Hematocrit Auto (Bld) [Volum e fraction]Ordered By: Gabe Foster on 02-25-2024 Hematocrit (Bld) [Volume fraction] 37.7 % 37-47 [facility] Immature granulocytes/100 WB C Auto (Bld)Ordered By: Gabe Foster on 02-25-2024 Immature granulocytes/100 WBC (Bld) 1.000 % 0.0-0.9 [facility] Comment on above: IG% - Immature Granu locytes (promyelocytes, myelocytes and metamyelocytes) > 1% indicates that a LEFT SHIFT is Present. Ketones Test strip Ql (U)Ord ered By: Gabe Foster on 02-25-2024 Ketones Ql (U) Negative Negative [facility] Laboratory - Chemistry and C hemistry - challengeOrdered By: Gabe Foster on 02-25-2024 CO2 [Moles/Vol] 24.0 mmol/L 21.0-32.0 [facility] Urea nitrogen/Creatinine [Mass ratio] 6.0 mg/mg 10-20 [facility] Laboratory - Hematology and Cell countsOrdered By: Gabe Foster on 02-25-2024 MCH (RBC) [Entitic mass] 29.1 pg 27.0-32.0 [facility] MCHC (RBC) [Mass/Vol] 33.2 g/dL 32-36 [facility] Nucleated RBC/100 WBC (Bld) [Ratio] 0 % 0-5 [facility] Platelet mean volume (Bld) [Entitic vol] 12.7 fL 6.2-12.0 [facility] Platelets (Bld) [#/Vol] 224 10*3/uL 150-450 [facility] Mucus LM Ql (Urine sed)Order ed By: Gabe Foster on 02-25-2024 Mucus Ql (Urine sed) 0 SEEN /hpf [facility] Nitrite Test strip Ql (U)Ord ered By: Gabe Foster on 02-25-2024 Nitrite Ql (U) Negative Negative [facility] No Panel InformationOrdered By: Gabe Foster on 02-25-2024 Estimated Creatinine Clearance Calc 32.73 ml/min [facility] Estimated GFR (MDRD) Amer 57 mL/min >60 [facility] Comment on above: GFR Calc Estimated GFR (MDRD) Non-Af Amer 47 mL/min >60 [facility] Comment on above: Non- GFR Calc Urine RBC 0 SEEN /hpf 0-5 [facility] Protein Test strip Ql (U)Ord ered By: Gabe Foster on 02-25-2024 Protein Ql (U) 30 mg/dl Negative [facility] RBC Auto (Bld) [#/Vol]Ordere d By: Gabe Foster on 02-25-2024 RBC (Bld) [#/Vol] 4.29 10*6/uL 4.2-5.4 [facility] Serum or plasma calcium froylan urement (mass/volume)Ordered By: Gabe Foster on 02-25-2024 Calcium [Mass/Vol] 9.1 mg/dL 8.5-10.1 [facility] Serum or plasma creatinine m easurement (mass/volume)Ordered By: Gabe Foster on 02-25-2024 Creatinine [Mass/Vol] 1.16 mg/dL 0.55-1.02 [facility] Comment on above: The validity of the calculated GFR & GFRAA in patients over 70 years has not been determined. Clinical correlation is essential. Serum or plasma urea nitroge n measurement (mass/volume)Ordered By: Gabe Foster on 02-25-2024 Urea nitrogen [Mass/Vol] 7 mg/dL 7-18 [facility] Squamous epithelial cells de tection in urine sediment by light microscopyOrdered By: Gabe Foster on 02-25-2024 Epithelial cells.squamous LM Ql (Urine sed) 0 SEEN /hpf 5-10 [facility] Thin prep Papanicolaou smear with manual screeningOrdered By: Gabe Foster on 02-25-2024 Thin prep Papanicolaou smear with manual screening 8 5-15 [facility] Urine blood detectionOrdered By: Gabe Foster on 02-25-2024 RBC Ql (U) 25 /ul Negative [facility] Urine clarityOrdered By: Hermilo Foster on 02-25-2024 Clarity (U) Clear Clear [facility] Urine color determinationOrd ered By: Gabe Foster on 02-25-2024 Color (U) Yellow Yellow [facility] Urine glucose detectionOrder ed By: Gabe Foster on 02-25-2024 Glucose Ql (U) 1000 mg/dl Normal [facility] Urine leukocyte esterase det ection by dipstickOrdered By: Gabe Foster on 02-25-2024 Leukocyte esterase Test strip Ql (U) Negative Negative [facility] Urine pHOrdered By: Gabe loyd on 02-25-2024 pH (U) 7.0 [pH] 5.0 - 8.0 [facility] Urine sediment bacteria coun t by microscopy (number/high power field)Ordered By: Gabe Foster on 02-25-2024 Bacteria LM.HPF (Urine sed) [#/Area] 0 /[HPF] None Seen [facility] Urine specific gravity measu rementOrdered By: Gabe Foster on 02-25-2024 Specific gravity (U) [Rel density] 1.005 1.002-1.030 [facility] Urine urobilinogen measureme ntOrdered By: Gabe Foster on 02-25-2024 Urobilinogen Ql (U) Normal mg/dl Normal [facility] COVID & INFLUENZA A/B & RSV NAAT, ROUTINEon 02-19-2024 FLUAV RNA GUNNER+probe Ql (Unsp spec) Not detected Not Detected [facility] FLUBV RNA GUNNER+probe Ql (Unsp spec) Not detected Not Detected [facility] Interpretation and review of laboratory results Normal [facility] RSV A RNA GUNNER+probe Ql (Unsp spec) Not detected Not Detected [facility] SARS-CoV-2 (COVID-19) RNA GUNNER+probe Ql (Resp) Not detected See comment [facility] Comment on above: The method used is R T-PCR or an equivalent NAAT method. Reference Range (the expected result in uninfected individuals): Not detected For upper respirator y tract samples, this test has been authorized by FDA under Emergenecy Use Authorization (EUA). For lower respiratory tract samples, this test was developed and its performance characteristics determined by [facility]'s [facility] Mantilla [facility]ology and Laboratory [facility] It has not been cleared or approved by the FDA. -PLOH is regulated under CLIA as qualified to perform high-complexity testing. This test is used for clinical purposes. It should not be regarded as investigational or for research. Test performed by [facility], Warren Jose Rafael [facility] Pathology and Laboratory Medicine [place], [facility] [place] [address]. [facility] STREP A MOLECULAR (POC)on Procedural Control Valid [facility] Strep A (POCT) Negative Negative [facility] CBC W Auto Differential pane l (Bld)on 02-07-2024 Basophils (Bld) [#/Vol] 0.03 10*3/uL <0.11 k/uL [facility] Basophils/100 WBC (Bld) 0.2 % [facility] Differential cell count method Nom (Bld) Auto [facility] Eosinophils (Bld) [#/Vol] 0.12 10*3/uL <0.46 k/uL [facility] Eosinophils/100 WBC (Bld) 0.9 % [facility] Erythrocyte distribution width (RBC) [Ratio] 13.2 % 11.5 - 15.0 % [facility] Hematocrit (Bld) [Volume fraction] 38.2 % 36.0 - 46.0 % [facility] Hemoglobin (Bld) [Mass/Vol] 12.6 g/dL 11.5 - 15.5 g/dL [facility] Immature granulocytes (Bld) [#/Vol] 0.04 10*3/uL <0.10 k/uL [facility] Immature granulocytes/100 WBC (Bld) 0.3 % [facility] Lymphocytes (Bld) [#/Vol] 0.88 10*3/uL Low 1.00 - 4.00 k/uL [facility] Lymphocytes/100 WBC (Bld) 6.4 % [facility] MCH (RBC) [Entitic mass] 29.1 pg 26.0 - 34.0 pg [facility] MCHC (RBC) [Mass/Vol] 33.0 g/dL 30.5 - 36.0 g/dL [facility] MCV (RBC) [Entitic vol] 88.2 fL 80.0 - 100.0 fL [facility] Monocytes (Bld) [#/Vol] 1.00 10*3/uL High <0.87 k/uL [facility] Monocytes/100 WBC (Bld) 7.2 % [facility] Neutrophils (Bld) [#/Vol] 11.75 10*3/uL High 1.45 - 7.50 k/uL [facility] Neutrophils/100 WBC (Bld) 85.0 % [facility] Nucleated RBC (Bld) [#/Vol] <0.01 k/uL [facility] Nucleated RBC/100 WBC (Bld) [Ratio] 0.0 /100 WBC [facility] Platelet mean volume (Bld) [Entitic vol] 12.8 fL High 9.0 - 12.7 fL [facility] Platelets (Bld) [#/Vol] 189 10*3/uL 150 - 400 k/uL [facility] RBC (Bld) [#/Vol] 4.33 10*6/uL 3.90 - 5.2 0 m/uL [facility] WBC (Bld) [#/Vol] 13.82 10*3/uL High 3.70 - 11.00 k/uL [facility] Comprehensive metabolic 2000 panelon 02-07-2024 Albumin [Mass/Vol] 4.2 g/dL 3.9 - 4.9 g/dL [facility] ALP [Catalytic activity/Vol] 111 U/L 34 - 123 U/L [facility] ALT [Catalytic activity/Vol] 24 U/L 7 - 38 U/L [facility] Anion gap [Moles/Vol] 8 mmol/L Low 9 - 18 mmol/L [facility] AST [Catalytic activity/Vol] 19 U/L 13 - 35 U/L [facility] Bilirubin [Mass/Vol] 0.5 mg/dL 0.2 - 1 .3 mg/dL [facility] Calcium [Mass/Vol] 9.8 mg/dL 8.5 - 10. 2 mg/dL [facility] Chloride [Moles/Vol] 102 mmol/L 97 - 10 5 mmol/L [facility] CO2 [Moles/Vol] 26 mmol/L 22 - 30 mmol/L [facility] Creatinine [Mass/Vol] 0.79 mg/dL 0.58 - 0.96 mg/dL [facility] Estimated Glomerular Filtration Rate 74 mL/min/1.73m >=60 mL/min/1.73 m [facility] Glucose [Mass/Vol] 302 mg/dL High 74 - 99 mg/dL [facility] Potassium [Moles/Vol] 4.7 mmol/L 3.7 - 5.1 mmol/L [facility] Protein [Mass/Vol] 7.3 g/dL 6.3 - 8.0 g/dL [facility] Sodium [Moles/Vol] 136 mmol/L 136 - 144 mmol/L [facility] Urea nitrogen [Mass/Vol] 15 mg/dL 7 - 21 mg/dL [facility] Basophil percentageOrdered B y: Jatinder Khan on 10-04-2023 Basophil percentage < 1.0 mg/dL 0.55-1.02 [facility] No Panel InformationOrdered By: Jatinder Khan on 10-04-2023 Bedside Estimated GFR (eGFR) > 60.0000 mL/min >60 [facility] Basophil percentageOrdered B y: Jatinder Khan on 06-19-2023 Bilirubin [Mass/Vol] 0.50 mg/dL 0.20-1.00 [facility] Comment on above: For patients on eltr ombopag therapy, use of Dimension [place] TBIL is not recommended. Chloride [Moles/Vol] 109 mmol/L 98-107 [facility] Glucose [Mass/Vol] 173 mg/dL 74-106 [facility] Comment on above: Fasting Glucose resu lt greater than or equal to 126 mg/dL suggests DIABETES MELLITUS per A.D.A. criteria. Potassium [Moles/Vol] 4.3 mmol/L 3.5-5.1 [facility] Protein [Mass/Vol] 7.2 g/dL 6.4-8.2 [facility] Sodium [Moles/Vol] 142 mmol/L 136-145 [facility] Laboratory - Chemistry and C hemistry - challengeOrdered By: Jatinder Khan on 06-19-2023 ALP [Catalytic activity/Vol] 101 U/L 45-117 [facility] ALT [Catalytic activity/Vol] 59 U/L 13-56 [facility] CO2 [Moles/Vol] 29.0 mmol/L 21.0-32.0 [facility] Globulin (S) [Mass/Vol] 3.4 g/dL 2.2-4.2 [facility] Urea nitrogen/Creatinine [Mass ratio] 11.7 mg/mg 10-20 [facility] No Panel InformationOrdered By: Jatinder Khan on 06-19-2023 Estimated GFR (MDRD) Amer 73 mL/min >60 [facility] Comment on above: GFR Calc Estimated GFR (MDRD) Non-Af Amer 61 mL/min >60 [facility] Comment on above: Non- GFR Calc Thyroid Stimulating Hormone (TSH) 3.62 uIU/mL 0.358-3.74 [facility] Serum or plasma albumin frolyan urement (mass/volume)Ordered By: Jatinder Khan on 06-19-2023 Albumin [Mass/Vol] 3.8 g/dL 3.2-5.0 [facility] Serum or plasma albumin/glob ulin mass ratioOrdered By: Jatinderdesirae Khan on 06-19-2023 Albumin/Globulin [Mass ratio] 1.1 {ratio} 0.9-2.4 [facility] Serum or plasma calcium froylan urement (mass/volume)Ordered By: Jatinder [facility] on 06-19-2023 Calcium [Mass/Vol] 9.4 mg/dL 8.5-10.1 [facility] Serum or plasma creatinine m easurement (mass/volume)Ordered By: [facility]atinder [facility] on 06-19-2023 Creatinine [Mass/Vol] 0.94 mg/dL 0.55-1.02 [facility] Comment on above: The validity of the calculated GFR & GFRAA in patients over 70 years has not been determined. Clinical correlation is essential. Serum or plasma urea nitroge n measurement (mass/volume)Ordered By: Jatinder Khan on 06-19-2023 Urea nitrogen [Mass/Vol] 11 mg/dL 7-18 [facility] Thin prep Papanicolaou smear with manual screeningOrdered By: Jatinder [facility] 06-19-2023 Thin prep Papanicolaou smear with manual screening 19 U/L 15-37 [facility] Thin prep Papanicolaou smear with manual screening 4 5-15 [facility] Absolute lymphocyte countOrd ered By: Dr. Foster on 04-22-2023 Lymphocytes Auto (Unsp spec) [#/Vol] 1.77 10*3/uL 0.83-4.51 [facility] Basophil percentageOrdered B y: Dr. Foster on 04-22-2023 Basophils/100 WBC (Bld) 0.4 % 0-1 [facility] Bilirubin [Mass/Vol] 0.50 mg/dL 0.20-1.00 [facility] Comment on above: For patients on eltr ombopag therapy, use of Dimension [place] TBIL is not recommended. Chloride [Moles/Vol] 106 mmol/L 98-107 [facility] Eosinophils/100 WBC (Bld) 2.2 % 0-5 [facility] Glucose [Mass/Vol] 125 mg/dL 74-106 [facility] Comment on above: Fasting Glucose resu lt from 100 to 125 mg/dL suggests IMPAIRED HOMEOSTASIS per A.D.A. criteria. Neutrophils (Bld) [#/Vol] 5.0 10*3/uL 2.0-7.7 [facility] Neutrophils/100 WBC (Bld) 65.0 % 47-70 [facility] Potassium [Moles/Vol] 4.1 mmol/L 3.5-5.1 [facility] Protein [Mass/Vol] 6.9 g/dL 6.4-8.2 [facility] Sodium [Moles/Vol] 139 mmol/L 136-145 [facility] WBC (Bld) [#/Vol] 7.7 10*3/uL 4.4-11.0 [facility] Blood erythrocytes count (nu mber/volume)Ordered By: Dr. Foster on 04-22-2023 RBC (Bld) [#/Vol] 4.02 10*6/uL 4.2-5.4 [facility] Blood hemoglobin measurement (mass/volume)Ordered By: Dr. Foster on 04-22-2023 Hemoglobin (Bld) [Mass/Vol] 11.6 g/dL 12.0-15.0 [facility] Blood lymphocytes/100 leukoc ytesOrdered By: Dr. Foster on 04-22-2023 Lymphocytes/100 WBC (Bld) 23.0 % 19-41 [facility] Blood monocytes/100 leukocyt esOrdered By: Dr. Foster on 04-22-2023 Monocytes/100 WBC (Bld) 9.0 % 0-10 [facility] Blood platelet mean volumeOr dered By: Dr. Foster on 04-22-2023 Platelet mean volume (Bld) [Entitic vol] 12.7 fL 6.2-12.0 [facility] Determination of erythrocyte mean corpuscular volume (MCV)Ordered By: Dr. Foster on 04-22-2023 MCV (RBC) [Entitic vol] 90.3 fL 81-99 [facility] Hematocrit Auto (Bld) [Volum e fraction]Ordered By: Dr. Foster on 04-22-2023 Hematocrit (Bld) [Volume fraction] 36.3 % 37-47 [facility] Laboratory - Chemistry and C hemistry - challengeOrdered By: Dr. Foster on 04-22-2023 ALP [Catalytic activity/Vol] 102 U/L 45-117 [facility] ALT [Catalytic activity/Vol] 61 U/L 13-56 [facility] CO2 [Moles/Vol] 27.0 mmol/L 21.0-32.0 [facility] Globulin (S) [Mass/Vol] 3.3 g/dL 2.2-4.2 [facility] Urea nitrogen/Creatinine [Mass ratio] 13.2 mg/mg 10-20 [facility] Laboratory - Hematology and Cell countsOrdered By: Dr. Foster on 04-22-2023 Erythrocyte distribution width (RBC) [Entitic vol] 43.6 fL 35.1-43.9 [facility] Erythrocyte distribution width (RBC) [Ratio] 13.2 % 11.6-14.6 [facility] Immature granulocytes/100 WBC (Bld) 0.400 % 0.0-0.9 [facility] Comment on above: IG% - Immature Granu locytes (promyelocytes, myelocytes and metamyelocytes) > 1% indicates that a LEFT SHIFT is Present. MCH (RBC) [Entitic mass] 28.9 pg 27.0-32.0 [facility] Nucleated RBC/100 WBC (Bld) [Ratio] 0 % 0-5 [facility] MCHC Auto (RBC) [Mass/Vol]Or dered By: Dr. Foster on 04-22-2023 MCHC (RBC) [Mass/Vol] 32.0 g/dL 32-36 [facility] No Panel InformationOrdered By: Dr. Foster on 04-22-2023 Estimated Creatinine Clearance Calc 37.54 ml/min [facility] Estimated GFR (MDRD) Amer 84 mL/min >60 [facility] [facility] Comment on above: GFR Calc Estimated GFR (MDRD) Non-Af Amer 70 mL/min >60 [facility] Comment on above: Non- GFR Calc Troponin I High Sensitivity 52 pg/mL 3.0-54.0 [facility] Comment on above: Please Note: New Kristen t Units and Gender Specific Reference Ranges. For more information see Policy Stat Procedure [place] High Sensitivity Troponin (TNIH) and attachments. Platelets bldOrdered By: Dr. Foster on 04-22-2023 Platelets (Bld) [#/Vol] 181 10*3/uL 150-450 [facility] Serum or plasma albumin froylan urement (mass/volume)Ordered By: Dr. Foster on 04-22-2023 Albumin [Mass/Vol] 3.6 g/dL 3.2-5.0 [facility] Serum or plasma albumin/glob ulin mass ratioOrdered By: Dr. Foster on 04-22-2023 Albumin/Globulin [Mass ratio] 1.1 {ratio} 0.9-2.4 [facility] Serum or plasma calcium froylan urement (mass/volume)Ordered By: Dr. Foster on 04-22-2023 Calcium [Mass/Vol] 9.5 mg/dL 8.5-10.1 [facility] Serum or plasma creatinine m easurement (mass/volume)Ordered By: Dr. Foster on 04-22-2023 Creatinine [Mass/Vol] 0.83 mg/dL 0.55-1.02 [facility] Comment on above: The validity of the calculated GFR & GFRAA in patients over 70 years has not been determined. Clinical correlation is essential. Serum or plasma urea nitroge n measurement (mass/volume)Ordered By: Dr. Foster on 04-22-2023 Urea nitrogen [Mass/Vol] 11 mg/dL 7-18 [facility] Thin prep Papanicolaou smear with manual screeningOrdered By: Dr. Foster on 04-22-2023 Thin prep Papanicolaou smear with manual screening 40 U/L 15-37 [facility] Thin prep Papanicolaou smear with manual screening 6 5-15 [facility] Absolute lymphocyte countOrd ered By: Dr. Velazco on 04-05-2023 Lymphocytes Auto (Unsp spec) [#/Vol] 1.78 10*3/uL 0.83-4.51 [facility] Basophil percentageOrdered B y: Dr. Velazco on 04-05-2023 Basophils/100 WBC (Bld) 0.6 % 0-1 [facility] Chloride [Moles/Vol] 104 mmol/L 98-107 [facility] Eosinophils/100 WBC (Bld) 2.3 % 0-5 [facility] Glucose [Mass/Vol] 303 mg/dL 74-106 [facility] Comment on above: Glucose result great er than or equal to 200 mg/dLsuggests DIABETES MELLITUS per A.D.A. criteria. Neutrophils (Bld) [#/Vol] 4.6 10*3/uL 2.0-7.7 [facility] Neutrophils/100 WBC (Bld) 63.5 % 47-70 [facility] Potassium [Moles/Vol] 3.9 mmol/L 3.5-5.1 [facility] Comment on above: Slight Hemolysis, Re sult may be falsely increased. Sodium [Moles/Vol] 136 mmol/L 136-145 [facility] WBC (Bld) [#/Vol] 7.2 10*3/uL 4.4-11.0 [facility] Blood erythrocytes count (nu mber/volume)Ordered By: Dr. Velazco on 04-05-2023 RBC (Bld) [#/Vol] 4.11 10*6/uL 4.2-5.4 [facility] Blood hemoglobin measurement (mass/volume)Ordered By: Dr. Velazco on 04-05-2023 Hemoglobin (Bld) [Mass/Vol] 12.0 g/dL 12.0-15.0 [facility] Blood lymphocytes/100 leukoc ytesOrdered By: Dr. Velazco on 04-05-2023 Lymphocytes/100 WBC (Bld) 24.6 % 19-41 [facility] Blood monocytes/100 leukocyt esOrdered By: Dr. Velazco on 04-05-2023 Monocytes/100 WBC (Bld) 8.6 % 0-10 [facility] Blood platelet mean volumeOr dered By: Dr. Velazco on 04-05-2023 Platelet mean volume (Bld) [Entitic vol] 12.9 fL 6.2-12.0 [facility] Determination of erythrocyte mean corpuscular volume (MCV)Ordered By: Dr. Velazco on 04-05-2023 MCV (RBC) [Entitic vol] 91.2 fL 81-99 [facility] Hematocrit Auto (Bld) [Volum e fraction]Ordered By: Dr. Velazco on 04-05-2023 Hematocrit (Bld) [Volume fraction] 37.5 % 37-47 [facility] Laboratory - Chemistry and C hemistry - challengeOrdered By: Dr. Velazco on 04-05-2023 CO2 [Moles/Vol] 24.0 mmol/L 21.0-32.0 [facility] Urea nitrogen/Creatinine [Mass ratio] 12.0 mg/mg 10-20 [facility] Laboratory - Hematology and Cell countsOrdered By: Dr. Velazco on 04-05-2023 Erythrocyte distribution width (RBC) [Entitic vol] 44.4 fL 35.1-43.9 [facility] Erythrocyte distribution width (RBC) [Ratio] 13.3 % 11.6-14.6 [facility] Immature granulocytes/100 WBC (Bld) 0.400 % 0.0-0.9 [facility] Comment on above: IG% - Immature Granu locytes (promyelocytes, myelocytes and metamyelocytes) > 1% indicates that a LEFT SHIFT is Present. MCH (RBC) [Entitic mass] 29.2 pg 27.0-32.0 [facility] Nucleated RBC/100 WBC (Bld) [Ratio] 0 % 0-5 [facility] MCHC Auto (RBC) [Mass/Vol]Or dered By: Dr. Velazco on 04-05-2023 MCHC (RBC) [Mass/Vol] 32.0 g/dL 32-36 [facility] No Panel InformationOrdered By: Dr. Velazco on 04-05-2023 Estimated Creatinine Clearance Calc 28.85 ml/min [facility] Estimated GFR (MDRD) Amer 62 mL/min >60 [facility] Comment on above: GFR Calc Estimated GFR (MDRD) Non-Af Amer 52 mL/min >60 [facility] Comment on above: Non- GFR Calc Troponin I High Sensitivity 38 pg/mL 3.0-54.0 [facility] Comment on above: Please Note: New Kristen t Units and Gender Specific Reference Ranges. For more information see Policy Stat Procedure [place] High Sensitivity Troponin (TNIH) and attachments. Platelets bldOrdered By: Dr. Velazco on 04-05-2023 Platelets (Bld) [#/Vol] 228 10*3/uL 150-450 [facility] Serum or plasma calcium froylan urement (mass/volume)Ordered By: Dr. Velazco on 04-05-2023 Calcium [Mass/Vol] 9.3 mg/dL 8.5-10.1 [facility] Serum or plasma creatinine m easurement (mass/volume)Ordered By: Dr. Velazco on 04-05-2023 Creatinine [Mass/Vol] 1.08 mg/dL 0.55-1.02 [facility] Comment on above: The validity of the calculated GFR & GFRAA in patients over 70 years has not been determined. Clinical correlation is essential. Serum or plasma urea nitroge n measurement (mass/volume)Ordered By: Dr. Velazco on 04-05-2023 Urea nitrogen [Mass/Vol] 13 mg/dL 7-18 [facility] Thin prep Papanicolaou smear with manual screeningOrdered By: Dr. Velazco on 04-05-2023 Thin prep Papanicolaou smear with manual screening 8 5-15 [facility] Absolute lymphocyte countOrd ered By: ED PROVIDER on 03-30-2023 Lymphocytes Auto (Unsp spec) [#/Vol] 2.60 10*3/uL 0.83-4.51 [facility] Basophil percentageOrdered B y: ED PROVIDER on 03-30-2023 Basophils/100 WBC (Bld) 0.6 % 0-1 [facility] Chloride [Moles/Vol] 108 mmol/L 98-107 [facility] Eosinophils/100 WBC (Bld) 0.9 % 0-5 [facility] Glucose [Mass/Vol] 100 mg/dL 74-106 [facility] Comment on above: Fasting Glucose resu lt from 100 to 125 mg/dL suggests IMPAIRED HOMEOSTASIS per A.D.A. criteria. Neutrophils (Bld) [#/Vol] 7.1 10*3/uL 2.0-7.7 [facility] Neutrophils/100 WBC (Bld) 66.8 % 47-70 [facility] Potassium [Moles/Vol] 3.5 mmol/L 3.5-5.1 [facility] Sodium [Moles/Vol] 143 mmol/L 136-145 [facility] WBC (Bld) [#/Vol] 10.6 10*3/uL 4.4-11.0 [facility] Blood erythrocytes count (nu mber/volume)Ordered By: ED PROVIDER on 03-30-2023 RBC (Bld) [#/Vol] 4.76 10*6/uL 4.2-5.4 [facility] Blood hemoglobin measurement (mass/volume)Ordered By: ED PROVIDER on 03-30-2023 Hemoglobin (Bld) [Mass/Vol] 14.1 g/dL 12.0-15.0 [facility] Blood lymphocytes/100 leukoc ytesOrdered By: ED PROVIDER on 03-30-2023 Lymphocytes/100 WBC (Bld) 24.5 % 19-41 [facility] Blood monocytes/100 leukocyt esOrdered By: ED PROVIDER on 03-30-2023 Monocytes/100 WBC (Bld) 6.9 % 0-10 [facility] Blood platelet mean volumeOr dered By: ED PROVIDER on 03-30-2023 Platelet mean volume (Bld) [Entitic vol] 9.2 fL 6.2-12.0 [facility] Determination of erythrocyte mean corpuscular volume (MCV)Ordered By: ED PROVIDER on 03-30-2023 MCV (RBC) [Entitic vol] 91.6 fL 81-99 [facility] Hematocrit Auto (Bld) [Volum e fraction]Ordered By: ED PROVIDER on 03-30-2023 Hematocrit (Bld) [Volume fraction] 43.6 % 37-47 [facility] INR in Blood by Coagulation assayOrdered By: ED PROVIDER on 03-30-2023 INR Coag (Bld) [Relative time] 1.0 {INR} [facility] Laboratory - Chemistry and C hemistry - challengeOrdered By: ED PROVIDER on 03-30-2023 CO2 [Moles/Vol] 27.0 mmol/L 21.0-32.0 [facility] Urea nitrogen/Creatinine [Mass ratio] 19.0 mg/mg 10-20 [facility] Laboratory - CoagulationOrde red By: ED PROVIDER on 03-30-2023 aPTT Coag (Bld) [Time] 28.1 s 24.1-36.2 [facility] PT Coag (PPP) [Time] 13.2 s 11.7-14.9 [facility] Laboratory - Hematology and Cell countsOrdered By: ED PROVIDER on 03-30-2023 Erythrocyte distribution width (RBC) [Entitic vol] 42.2 fL 35.1-43.9 [facility] Erythrocyte distribution width (RBC) [Ratio] 12.5 % 11.6-14.6 [facility] Immature granulocytes/100 WBC (Bld) 0.300 % 0.0-0.9 [facility] Comment on above: IG% - Immature Granu locytes (promyelocytes, myelocytes and metamyelocytes) > 1% indicates that a LEFT SHIFT is Present. MCH (RBC) [Entitic mass] 29.6 pg 27.0-32.0 [facility] Nucleated RBC/100 WBC (Bld) [Ratio] 0 % 0-5 [facility] MCHC Auto (RBC) [Mass/Vol]Or dered By: ED PROVIDER on 03-30-2023 MCHC (RBC) [Mass/Vol] 32.3 g/dL 32-36 [facility] No Panel InformationOrdered By: ED PROVIDER on 03-30-2023 Estimated Creatinine Clearance Calc 31.15 ml/min [facility] Estimated GFR (MDRD) Amer 97 mL/min >60 [facility] Comment on above: GFR Calc Estimated GFR (MDRD) Non-Af Amer 80 mL/min >60 [facility] Comment on above: Non- GFR Calc No Panel InformationOrdered By: Dick Love on 03-30-2023 Troponin I High Sensitivity 4 pg/mL 3.0-54.0 [facility] Comment on above: Please Note: New Kristen t Units and Gender Specific Reference Ranges. For more information see Policy Stat Procedure [place] High Sensitivity Troponin (TNIH) and attachments. Platelets bldOrdered By: ED PROVIDER on 03-30-2023 Platelets (Bld) [#/Vol] 328 10*3/uL 150-450 [facility] Serum or plasma calcium froylan urement (mass/volume)Ordered By: ED PROVIDER on 03-30-2023 Calcium [Mass/Vol] 9.5 mg/dL 8.5-10.1 [facility] Serum or plasma creatinine m easurement (mass/volume)Ordered By: ED PROVIDER on 03-30-2023 Creatinine [Mass/Vol] 0.74 mg/dL 0.55-1.02 [facility] Comment on above: The validity of the calculated GFR & GFRAA in patients over 70 years has not been determined. Clinical correlation is essential. Serum or plasma urea nitroge n measurement (mass/volume)Ordered By: ED PROVIDER on 03-30-2023 Urea nitrogen [Mass/Vol] 14 mg/dL 7-18 [facility] Thin prep Papanicolaou smear with manual screeningOrdered By: ED PROVIDER on 03-30-2023 Thin prep Papanicolaou smear with manual screening 8 5-15 [facility] Absolute lymphocyte countOrd ered By: Dr. Sarabia on 03-07-2023 Lymphocytes Auto (Unsp spec) [#/Vol] 1.53 10*3/uL 0.83-4.51 [facility] Basophil percentageOrdered B y: Dr. Sarabia on 03-07-2023 Basophils/100 WBC (Bld) 0.5 % 0-1 [facility] Chloride [Moles/Vol] 106 mmol/L 98-107 [facility] Eosinophils/100 WBC (Bld) 2.4 % 0-5 [facility] Glucose [Mass/Vol] 296 mg/dL 74-106 [facility] Comment on above: Glucose result great er than or equal to 200 mg/dLsuggests DIABETES MELLITUS per A.D.A. criteria. Neutrophils (Bld) [#/Vol] 5.2 10*3/uL 2.0-7.7 [facility] Neutrophils/100 WBC (Bld) 68.3 % 47-70 [facility] Potassium [Moles/Vol] 4.0 mmol/L 3.5-5.1 [facility] Sodium [Moles/Vol] 137 mmol/L 136-145 [facility] WBC (Bld) [#/Vol] 7.6 10*3/uL 4.4-11.0 [facility] Blood erythrocytes count (nu mber/volume)Ordered By: Dr. Sarabia on 03-07-2023 RBC (Bld) [#/Vol] 4.11 10*6/uL 4.2-5.4 [facility] Blood hemoglobin measurement (mass/volume)Ordered By: Dr. Sarabia on 03-07-2023 Hemoglobin (Bld) [Mass/Vol] 12.1 g/dL 12.0-15.0 [facility] Blood lymphocytes/100 leukoc ytesOrdered By: Dr. Sarabia on 03-07-2023 Lymphocytes/100 WBC (Bld) 20.2 % 19-41 [facility] Blood monocytes/100 leukocyt esOrdered By: Dr. Sarabia on 03-07-2023 Monocytes/100 WBC (Bld) 8.3 % 0-10 [facility] Blood platelet mean volumeOr dered By: Dr. Sarabia on 03-07-2023 Platelet mean volume (Bld) [Entitic vol] 12.6 fL 6.2-12.0 [facility] Determination of erythrocyte mean corpuscular volume (MCV)Ordered By: Dr. Sarabia on 03-07-2023 MCV (RBC) [Entitic vol] 92.0 fL 81-99 [facility] Hematocrit Auto (Bld) [Volum e fraction]Ordered By: Dr. Sarabia on 03-07-2023 Hematocrit (Bld) [Volume fraction] 37.8 % 37-47 [facility] Laboratory - Chemistry and C hemistry - challengeOrdered By: Dr. Sarabia on 03-07-2023 CO2 [Moles/Vol] 25.0 mmol/L 21.0-32.0 [facility] Urea nitrogen/Creatinine [Mass ratio] 17.3 mg/mg 10-20 [facility] Laboratory - Hematology and Cell countsOrdered By: Dr. Sarabia on 03-07-2023 Erythrocyte distribution width (RBC) [Entitic vol] 43.9 fL 35.1-43.9 [facility] Erythrocyte distribution width (RBC) [Ratio] 13.1 % 11.6-14.6 [facility] Immature granulocytes/100 WBC (Bld) 0.300 % 0.0-0.9 [facility] Comment on above: IG% - Immature Granu locytes (promyelocytes, myelocytes and metamyelocytes) > 1% indicates that a LEFT SHIFT is Present. MCH (RBC) [Entitic mass] 29.4 pg 27.0-32.0 [facility] Nucleated RBC/100 [facility]) [[facility] [Mass/Vol]Or dered By: Dr. Sarabia on 03-07-2023 MCHC (RBC) [Mass/Vol] 32.0 g/dL 32-36 [facility] No Panel InformationOrdered By: Dr. Sarabia on 03-07-2023 Estimated GFR (MDRD) Amer 81 mL/min >60 [facility] Comment on above: GFR Calc Estimated GFR (MDRD) Non-Af Amer 67 mL/min >60 [facility] Comment on above: Non- GFR Calc Platelets bldOrdered By: Dr. Sarabia on 03-07-2023 Platelets (Bld) [#/Vol] 218 10*3/uL 150-450 [facility] Serum or plasma calcium froylan urement (mass/volume)Ordered By: Dr. Sarabia on 03-07-2023 Calcium [Mass/Vol] 9.7 mg/dL 8.5-10.1 [facility] Serum or plasma creatinine m easurement (mass/volume)Ordered By: Dr. Sarabia on 03-07-2023 Creatinine [Mass/Vol] 0.87 mg/dL 0.55-1.02 [facility] Comment on above: The validity of the calculated GFR & GFRAA in patients over 70 years has not been determined. Clinical correlation is essential. Serum or plasma urea nitroge n measurement (mass/volume)Ordered By: Dr. Sarabia on 03-07-2023 Urea nitrogen [Mass/Vol] 15 mg/dL 7-18 [facility] Thin prep Papanicolaou smear with manual screeningOrdered By: Dr. Sarabia on 03-07-2023 Thin prep Papanicolaou smear with manual screening 6 5-[address] [facility] [address] PELVIS W IVCONon 02-14-20 [facility] UA DIP, URINE (POC)on 2022 BILIRUBIN UA (POCT) Negative Negative [facility] CLARITY UA (POCT) Slightly Cloudy Cl [facility] COLOR UA (POCT) Yellow [facility] GLUCOSE UA (POCT) Negative Negative mg/dL [facility] HEMOGLOBIN/BLOOD UA (POCT) Trace-intact Abnormal Negative [facility] KETONE UA (POCT) Negative Negative mg/dL [facility] LEUKOCYTES UA (POCT) Negative Negative [facility] NITRITE UA (POCT) Negative Negative [facility] PH UA (POCT) 6.5 4.5 - 8.0 [facility] Protein Ql (U) Negative Negative mg/dL [facility] SPECIFIC GRAVITY UA (POCT) <=1.005 Abnormal 1.005 - 1.030 [facility] UROBILINOGEN UA (POCT) 0.2 E.U./dL Kyara l E.U./dL [facility] CT CHEST WO IVCONon 11-20-19 [facility] No Panel Informationon 11-16 [facility] XR Chest PA and Lateralon IMPRESSION: Findings as discussed under Results portion of report. . Wallpaper Consultant: AMBER Transcribe Date/Time: Oct 29 2022 7:55A Dictated by : ALEKSANDR ESPARZA DO This examination was interpreted and the report reviewed and electronically signed by: ALEKSANDR ESPARZA DO on Oct 29 2022 7:57AM [facility] DIVISION OF RADIOLOGY * * *Final Report* [...] soft tissues: Unremarkable. DIVISION OF RADIOLOGY Provider, [facility] - 10/29/2022 * * *Final [...] discussed under Results portion of report. . Wallpaper Consultant: AMBER Transcribe Date/Time: Oct 29 2022 7:55A Dictated by : ALEKSANDR ESPARZA DO This examination was interpreted and the report reviewed and electronically signed by: ALEKSANDR ESPARZA DO on Oct 29 2022 7:57AM EST [facility] XR Chest PA and LateralOrder ed By: [facility] Provider on 10-29-2022 [facility] XR CHEST 2V FRONTAL/LATon [facility] XR Chest PA and Lateralon Radiology Study observation (narrative) [facility] No Panel Informationon 10-12 [facility] SPIROMETRY - BASELINE AND PO ST DILATORon 10-12-2022 DLCO (ml/min/mmHg) 14.01 ml/min/mmHg [facility] DLCO/VA (ml/min/mmHg/L) 3.28 ml/min/mmHg/L [facility] ERV BOX (L) 0.45 L [facility] [id number]% POST (L/S) 1.24 L/S [facility] [id number]% PRE (L/S) 0.82 L/S [facility] land [facility] FEV1 PRE (L) 1.58 L [facility] FEV1/FVC POST (%) 74 % [facility] FEV1/FVC PRE (%) 64 % [facility] FEV1_POST (L) 1.71 L [facility] FRC Box (L) 2.56 L [facility] FVC POST (L) 2.31 L [facility] FVC PRE (L) 2.47 L [facility] IC BOX (L) 1.83 L [facility] PEF POST (L/S) 3.00 L/S [facility] PEF PRE (L/S) 3.13 L/S [facility] RV Box (L) 1.99 L [facility] RV/TLC Box (%) 47 % [facility] TLC Box (L) 4.27 L [facility] VA (L) 4.27 L [facility] VC (L) BOX 2.29 L [facility] Vital Signs Date Time Vital Sign Value Performing Clinician Facility 05-25-2025 12:03-0400 Body mass index (BMI) [Ratio] 30.08 kg/m2 Juan Miguel Yusuf MD Work Phone: [facility] 05-25-2025 12:03-0400 Body temperature 98.49 [degF] Juan Miguel Yusuf MD Work Phone: [facility] 05-25-2025 12:03-0400 Body weight 69.85 kg Juan Miguel Yusuf MD Work Phone: [facility] 05-25-2025 12:03-0400 Diastolic blood pressure 69 mm[Hg] Juan Miguel Yusuf MD Work Phone: [facility] 05-25-2025 12:03-0400 Heart rate 73 /min Juan Miguel Yusuf MD Work Phone: [facility] 05-25-2025 12:03-0400 SaO2% (BldA) [Mass fraction] 98 % uJan Miguel Yusuf MD Work Phone: [facility] 05-25-2025 12:03-0400 Systolic blood pressure 140 mm[Hg] Juan Miguel Yusuf MD Work Phone: [facility] 04-06-2025 14:07-0400 Body height 152.4 cm Ayaz Nguyễn MD Work Phone: [facility] 04-06-2025 14:07-0400 Body mass index (BMI) [Ratio] 29.29 kg/m2 Ayaz Nguyễn MD Work Phone: [facility] 04-06-2025 14:07-0400 Body weight 68.04 kg Ayaz Nguyễn MD Work Phone: [facility] 03-30-2025 13:48-0400 Body mass index (BMI) [Ratio] 29.69 kg/m2 Henok Martinez MD Work Phone: [facility] 03-30-2025 13:48-0400 Body weight 68.95 kg Henok Martinez MD Work Phone: [facility] 03-30-2025 13:48-0400 Diastolic blood pressure 68 mm[Hg] Henok Martinez MD Work Phone: [facility] 03-30-2025 13:48-0400 Heart rate 84 /min Henok Martinez MD Work Phone: [facility] 03-30-2025 13:48-0400 SaO2% (BldA) [Mass fraction] 98 % Henok Martinez MD Work Phone: [facility] 03-30-2025 13:48-0400 Systolic blood pressure 118 mm[Hg] Henok Martinez MD Work Phone: [facility] 02-24-2025 10:57-0400 Body mass index (BMI) [Ratio] 28.9 kg/m2 Henok Martinez MD Work Phone: [facility] 02-24-2025 10:57-0400 Body weight 67.13 kg Henok Martinez MD Work Phone: [facility] 02-24-2025 10:57-0400 Diastolic blood pressure 72 mm[Hg] Henok Martinez MD Work Phone: [facility] 02-24-2025 10:57-0400 Heart rate 77 /min Henok Martinez MD Work Phone: [facility] 02-24-2025 10:57-0400 SaO2% (BldA) [Mass fraction] 99 % Henok Martinez MD Work Phone: [facility] 02-24-2025 10:57-0400 Systolic blood pressure 118 mm[Hg] Henok Martinez MD Work Phone: [facility] 02-22-2025 10:00-0400 Body mass index (BMI) [Ratio] 29.39 kg/m2 Lab/Port Wstr Work Phone: [facility] 02-22-2025 10:00-0400 Body weight 68.27 kg Lab/Port Wstr Work Phone: [facility] 02-05-2025 09:19-0400 Body mass index (BMI) [Ratio] 30.17 kg/m2 Treatment Wstr Work Phone: [facility] 02-05-2025 09:19-0400 Body temperature 98.6 [degF] Treatment Wstr Work Phone: [facility] 02-05-2025 09:19-0400 Body weight 70.08 kg Treatment Wstr Work Phone: [facility] 02-05-2025 09:19-0400 Diastolic blood pressure 76 mm[Hg] Treatment Wstr Work Phone: [facility] 02-05-2025 09:19-0400 Heart rate 80 /min Treatment Wstr Work Phone: [facility] 02-05-2025 09:19-0400 SaO2% (BldA) [Mass fraction] 97 % Treatment Wstr Work Phone: [facility] 02-05-2025 09:19-0400 Systolic blood pressure 145 mm[Hg] Treatment Wstr Work Phone: [facility] 02-04-2025 10:35-0400 Body height 152.4 cm Ayaz Nguyễn MD Work Phone: [facility] 02-04-2025 10:35-0400 Body mass index (BMI) [Ratio] 29.49 kg/m2 Ayaz Nguyễn MD Work Phone: [facility] 02-04-2025 10:35-0400 Body weight 68.49 kg Ayaz Nguyễn MD Work Phone: [facility] 02-04-2025 10:35-0400 Diastolic blood pressure 60 mm[Hg] Ayaz Nguyễn MD Work Phone: [facility] 02-04-2025 10:35-0400 Heart rate 70 /min Ayaz Nguyễn MD Work Phone: [facility] 02-04-2025 10:35-0400 SaO2% (BldA) [Mass fraction] 97 % Ayaz Nguyễn MD Work Phone: [facility] 02-04-2025 10:35-0400 Systolic blood pressure 106 mm[Hg] Ayaz Nguyễn MD Work Phone: [facility] 02-01-2025 10:48-0400 Body mass index (BMI) [Ratio] 29.11 kg/m2 Henok Martinez MD Work Phone: [facility] 02-01-2025 10:48-0400 Body temperature 98.8 [degF] Henok Martinez MD Work Phone: [facility] 02-01-2025 10:48-0400 Body weight 68.49 kg Henok Martinez MD Work Phone: [facility] 02-01-2025 10:48-0400 Diastolic blood pressure 62 mm[Hg] Henok Martinez MD Work Phone: [facility] 02-01-2025 10:48-0400 Heart rate 79 /min Henok Martinez MD Work Phone: [facility] 02-01-2025 10:48-0400 SaO2% (BldA) [Mass fraction] 99 % Henok Martinez MD Work Phone: [facility] 02-01-2025 10:48-0400 Systolic blood pressure 102 mm[Hg] Henok Martinez MD Work Phone: [facility] 01-28-2025 11:08-0400 Body height 153.4 cm Treatment Wstr Work Phone: [facility] 01-28-2025 11:08-0400 Body mass index (BMI) [Ratio] 28.62 kg/m2 Treatment Wstr Work Phone: [facility] 01-28-2025 11:08-0400 Body temperature 99 [degF] Treatment Wstr Work Phone: [facility] 01-28-2025 11:08-0400 Body weight 67.36 kg Treatment Wstr Work Phone: [facility] 01-28-2025 11:08-0400 Diastolic blood pressure 67 mm[Hg] Treatment Wstr Work Phone: [facility] 01-28-2025 11:08-0400 Heart rate 69 /min Treatment Wstr Work Phone: [facility] 01-28-2025 11:08-0400 SaO2% (BldA) [Mass fraction] 100 % Treatment Wstr Work Phone: [facility] 01-28-2025 11:08-0400 Systolic blood pressure 113 mm[Hg] Treatment Wstr Work Phone: [facility] 01-25-2025 08:30-0400 Body height 152.5 cm Juan Miguel Yusuf MD Work Phone: [facility] 01-25-2025 08:30-0400 Body mass index (BMI) [Ratio] 29.26 kg/m2 Juan Miguel Yusuf MD Work Phone: [facility] [facility] 01-25-2025 08:30-0400 Body temperature 99 [degF] Juan Miguel Yusuf MD Work Phone: [facility] 01-25-2025 08:30-0400 Body weight 68.04 kg Juan Miguel Yusuf MD Work Phone: [facility] 01-25-2025 08:30-0400 Diastolic blood pressure 74 mm[Hg] Juan Miguel Yusuf MD Work Phone: [facility] 01-25-2025 08:30-0400 Heart rate 110 /min Juan Miguel Yusuf MD Work Phone: [facility] 01-25-2025 08:30-0400 SaO2% (BldA) [Mass fraction] 99 % Juan Miguel Yusuf MD Work Phone: [facility] 01-25-2025 08:30-0400 Systolic blood pressure 133 mm[Hg] Juan Miguel Yusuf MD Work Phone: [facility] 01-14-2025 21:17-0400 Diastolic blood pressure 68 mm[Hg] Dr. Henok Martinez MD Work Phone: 8(460)998-011870 [place] [address] 01-14-2025 21:17-0400 Heart rate 75 /min Dr. Henok Martinez MD Work Phone: 6(319)486-650865 [place] [address] 01-14-2025 21:17-0400 Systolic blood pressure 136 mm[Hg] Dr. Henok Martinez MD Work Phone: 3(089)157-364165 [place] [address] 01-14-2025 20:00-0400 Body temperature 98 [degF] Dr. Henok Martinez MD Work Phone: 6(021)344-637565 [place] [address] 01-14-2025 20:00-0400 Respiratory rate 16 /min Dr. Henok Martinez MD Work Phone: 1(352)955-362965 [place] [address] 01-14-2025 20:00-0400 SaO2% (BldA) [Mass fraction] 97 % Dr. Henok Martinez MD Work Phone: 5(026)113-568665 [place] [address] 01-14-2025 06:00-0400 Body mass index (BMI) [Ratio] 29.7 kg/m2 Dr. Henok Martinez MD Work Phone: 3(982)559-165465 [place] [address] 01-14-2025 06:00-0400 Body weight 68.[address] Henok Martinez MD Work Phone: 8(788)360-847265 [place] [address] 01-13-2025 11:06-0400 Body height 152.[address] Henok Martinez MD Work Phone: 6(549)457-577265 [place] [address] 01-10-2025 01:10-0400 Body temperature 97.9 [degF] Dr. Henok Martinez MD Work Phone: 2(188)964-680665 [place] [address] 01-10-2025 01:10-0400 Diastolic blood pressure 90 mm[Hg] Dr. Henok Martinez MD Work Phone: 5(359)753-726565 [place] [address] 01-10-2025 01:10-0400 Heart rate 86 /min Dr. Henok Martinez MD Work Phone: [facility] 01-10-2025 01:10-0400 Respiratory rate 22 /min Dr. Henok Martinez MD Work Phone: [facility] 01-10-2025 01:10-0400 SaO2% (BldA) [Mass fraction] 96 % Dr. Henok Martinez MD Work Phone: [facility] 01-10-2025 01:10-0400 Systolic blood pressure 158 mm[Hg] Dr. Henok Martinez MD Work Phone: [facility] 01-09-2025 18:39-0400 Body height 152.[address] Henok Martinez MD Work Phone: [facility] 01-09-2025 18:39-0400 Body mass index (BMI) [Ratio] 29.4 kg/m2 Dr. Henok Martinez MD Work Phone: [facility] 01-09-2025 18:39-0400 Body weight 68.[address] Henok Martinez MD Work Phone: [facility] 11-17-2024 12:52-0500 Diastolic blood pressure 62 mm[Hg] Angelia Click CORPORATE DIRECTOR TALENT ASSESSMENT.[employer] Work Phone: [facility] 11-17-2024 12:52-0500 Heart rate 72 /min Angelia Click CORPORATE DIRECTOR TALENT ASSESSMENT.[employer]ID[employer]ER Work Phone: [facility] 11-17-2024 12:52-0500 Respiratory rate 16 /min Angelia Click CORPORATE DIRECTOR TALENT ASSESSMENT.[employer]ID[employer] Work Phone: [facility] 11-17-2024 12:52-0500 Systolic blood pressure 104 mm[Hg] Angelia Click CORPORATE DIRECTOR TALENT ASSESSMENT.[employer]ID[employer]ER Work Phone: [facility] 11-04-2024 15:14-0500 Body height 149.9 cm Henok Martinez MD Work Phone: [facility] 11-04-2024 15:14-0500 Body mass index (BMI) [Ratio] 32.11 kg/m2 Henok Martinez MD Work Phone: [facility] 11-04-2024 15:14-0500 Body weight 72.12 kg Henok Martinez MD Work Phone: [facility] 11-04-2024 15:14-0500 Diastolic blood pressure 50 mm[Hg] Henok Martinez MD Work Phone: [facility] 11-04-2024 15:14-0500 Heart rate 81 /min Henok Martinez MD Work Phone: [facility] 11-04-2024 15:14-0500 SaO2% (BldA) [Mass fraction] 98 % Henok Martinez MD Work Phone: [facility] 11-04-2024 15:14-0500 Systolic blood pressure 110 mm[Hg] Henok Martinez MD Work Phone: [facility] 10-13-2024 14:44-0500 Body mass index (BMI) [Ratio] 32.72 kg/m2 Virginia Suppan CORPORATE DIRECTOR TALENT ASSESSMENT.[employer]ID[employer] Work Phone: [facility] 10-13-2024 14:44-0500 Body temperature 99.3 [degF] Virginia Suppan CORPORATE DIRECTOR TALENT ASSESSMENT.[employer]ID[employer] Work Phone: [facility] 10-13-2024 14:44-0500 Body weight 73.48 kg Virginia Suppan CORPORATE DIRECTOR TALENT ASSESSMENT.[employer]ID[employer]ER Work Phone: [facility] 10-13-2024 14:44-0500 Diastolic blood pressure 68 mm[Hg] Virginia Suppan CORPORATE DIRECTOR TALENT ASSESSMENT.[employer]ID[employer]ER Work Phone: [facility] 10-13-2024 14:44-0500 Heart rate 67 /min Virginia Suppan CORPORATE DIRECTOR TALENT ASSESSMENT.[employer]IDGE [employer]ER Work Phone: [facility] 10-13-2024 14:44-0500 Respiratory rate 16 /min Virginia Suppan CORPORATE DIRECTOR TALENT ASSESSMENT.[employer]ID[employer]ER Work Phone: [facility] 10-13-2024 14:44-0500 SaO2% (BldA) [Mass fraction] 97 % Virginia Suppan CORPORATE DIRECTOR TALENT ASSESSMENT.[employer]ID[employer]ER Work Phone: [facility] 10-13-2024 14:44-0500 Systolic blood pressure 124 mm[Hg] Virginia Reina CORPORATE DIRECTOR TALENT ASSESSMENT.[employer]ID[employer]ER Work Phone: [facility] 07-01-2024 16:04-0400 Body height 149.9 cm Henok Mratinez MD Work Phone: [facility] 07-01-2024 16:04-0400 Body mass index (BMI) [Ratio] 32.72 kg/m2 Henok Martinez MD Work Phone: [facility] 07-01-2024 16:04-0400 Body weight 73.48 kg Henok Martinez MD Work Phone: [facility] 07-01-2024 16:04-0400 Diastolic blood pressure 56 mm[Hg] Henok Martinez MD Work Phone: [facility] 07-01-2024 16:04-0400 Heart rate 76 /min Henok Martinez MD Work Phone: [facility] 07-01-2024 16:04-0400 SaO2% (BldA) [Mass fraction] 99 % Henok Martinez MD Work Phone: [facility] 07-01-2024 16:04-0400 Systolic blood pressure 124 mm[Hg] Henok Martinez MD Work Phone: [facility] 06-05-2024 11:34-0400 Body mass index (BMI) [Ratio] 32.72 kg/m2 Nancy Medley MD Work Phone: [facility] 06-05-2024 11:34-0400 Body weight 73.48 kg Nancy Medley MD Work Phone: [facility] 05-01-2024 15:44-0400 Body mass index (BMI) [Ratio] 33.53 kg/m2 Henok Martinez MD Work Phone: [facility] 05-01-2024 15:44-0400 Body weight 75.3 kg Henok Martinez MD Work Phone: [facility] 05-01-2024 15:44-0400 Diastolic blood pressure 70 mm[Hg] Henok Martinez MD Work Phone: [facility] 05-01-2024 15:44-0400 Heart rate 64 /min Henok Martinez MD Work Phone: [facility] 05-01-2024 15:44-0400 SaO2% (BldA) [Mass fraction] 99 % Henok Martinez MD Work Phone: [facility] 05-01-2024 15:44-0400 Systolic blood pressure 122 mm[Hg] Henok Martinez MD Work Phone: [facility] 03-04-2024 14:15-0400 Body height 149.9 cm Henok Martinez MD Work Phone: [facility] 03-04-2024 14:15-0400 Body mass index (BMI) [Ratio] 31.1 kg/m2 Henok Martinez MD Work Phone: [facility] 03-04-2024 14:15-0400 Body temperature 98.91 [degF] Henok Martinez MD Work Phone: [facility] 03-04-2024 14:15-0400 Body weight 69.85 kg Henok Martinez MD Work Phone: [facility] 03-04-2024 14:15-0400 Diastolic blood pressure 60 mm[Hg] Henok Martinez MD Work Phone: [facility] 03-04-2024 14:15-0400 Heart rate 91 /min Henok Martinez MD Work Phone: [facility] 03-04-2024 14:15-0400 SaO2% (BldA) [Mass fraction] 97 % Henok Martinez MD Work Phone: [facility] 03-04-2024 14:15-0400 Systolic blood pressure 110 mm[Hg] Henok Martinez MD Work Phone: [facility] 02-25-2024 16:00-0400 Heart rate 113 /min Dr. Henok Martinez Work Phone: [facility] 02-25-2024 16:00-0400 Respiratory rate 22 /min Dr. Henok Martinez Work Phone: [facility] 02-25-2024 15:52-0400 Body mass index (BMI) [Ratio] 31.5 kg/m2 Dr. Henok Martinez Work Phone: [facility] 02-25-2024 15:52-0400 Body weight 72.[address] Henok Martinez Work Phone: [facility] 02-25-2024 14:36-0400 Body height 152.[address] Henok Martinez Work Phone: [facility] 02-25-2024 14:36-0400 Body temperature 99.6 [degF] Dr. Henok Martinez Work Phone: [facility] 02-25-2024 14:36-0400 Diastolic blood pressure 77 mm[Hg] Dr. Henok Martinez Work Phone: [facility] 02-25-2024 14:36-0400 SaO2% (BldA) [Mass fraction] 97 % Dr. Henok Martinez Work Phone: [facility] 02-25-2024 14:36-0400 Systolic blood pressure 158 mm[Hg] Dr. Henok Martinez Work Phone: [facility] 02-19-2024 12:39-0400 Body mass index (BMI) [Ratio] 33.13 kg/m2 Lana Alanis APRN.[employer]IDGE [employer]ER Work Phone: [facility] 02-19-2024 12:39-0400 Body temperature 99.39 [degF] Lana Alanis APRN.CARTRIDGE F[employer]ER Work Phone: [facility] 02-19-2024 12:39-0400 Body weight 74.4 kg Lana Alanis APRN.[employer]IDGE [employer]ER Work Phone: [facility] 02-19-2024 12:39-0400 Diastolic blood pressure 72 mm[Hg] Lana Alanis APRN.CAR[employer]IDGE F[employer]ER Work Phone: [facility] 02-19-2024 12:39-0400 Heart rate 74 /min Lana Alanis CORPORATE DIRECTOR TALENT ASSESSMENT.[employer]ID[employer]ER Work Phone: [facility] 02-19-2024 12:39-0400 Respiratory rate 16 /min Lana Alanis CORPORATE DIRECTOR TALENT ASSESSMENT.[employer]ID[employer]ER Work Phone: [facility] 02-19-2024 12:39-0400 SaO2% (BldA) [Mass fraction] 99 % Lana Alanis CORPORATE DIRECTOR TALENT ASSESSMENT.[employer]ID[employer]ER Work Phone: [facility] 02-19-2024 12:39-0400 Systolic blood pressure 122 mm[Hg] Lana Alanis CORPORATE DIRECTOR TALENT ASSESSMENT.[employer]ID[employer]ER Work Phone: [facility] 02-07-2024 10:58-0400 Body temperature 98.1 [degF] Fazal Nathanielmarcusnatalia CORPORATE DIRECTOR TALENT ASSESSMENT.[employer]ID[employer]ER Work Phone: [facility] 02-07-2024 10:58-0400 Body weight 73.4 kg Fazal Armstrongmarcusnatalia CORPORATE DIRECTOR TALENT ASSESSMENT.[employer]ID[employer]ER Work Phone: [facility] 02-07-2024 10:58-0400 Diastolic blood pressure 72 mm[Hg] Fazal Nathanielmarcusnatalia CORPORATE DIRECTOR TALENT ASSESSMENT.[employer]ID[employer]ER Work Phone: [facility] 02-07-2024 10:58-0400 Heart rate 68 /min Fazal Thanh CORPORATE DIRECTOR TALENT ASSESSMENT.[employer]IDGE [employer]ER Work Phone: [facility] 02-07-2024 10:58-0400 Respiratory rate 16 /min Fazal Nathanielmarcusnatalia CORPORATE DIRECTOR TALENT ASSESSMENT.[employer]ID[employer]ER Work Phone: [facility] 02-07-2024 10:58-0400 SaO2% (BldA) [Mass fraction] 97 % Fazal Law CORPORATE DIRECTOR TALENT ASSESSMENT.[employer]ID[employer]ER Work Phone: [facility] 02-07-2024 10:58-0400 Systolic blood pressure 124 mm[Hg] Fazal Law CORPORATE DIRECTOR TALENT ASSESSMENT.[employer]ID[employer]ER Work Phone: [facility] 12-16-2023 10:07-0500 Body height 149.9 cm Henok Martinez MD Work Phone: [facility] 12-16-2023 10:07-0500 Body weight 74.84 kg Henok Martinez MD Work Phone: [facility] 12-16-2023 10:07-0500 Diastolic blood pressure 52 mm[Hg] Henok Martinez MD Work Phone: [facility] 12-16-2023 10:07-0500 Heart rate 63 /min Henok Martinez MD Work Phone: [facility] 12-16-2023 10:07-0500 SaO2% (BldA) [Mass fraction] 99 % Henok Martinez MD Work Phone: [facility] 12-16-2023 10:07-0500 Systolic blood pressure 110 mm[Hg] Henok Martinez MD Work Phone: [facility] 11-21-2023 09:22-0500 Body mass index (BMI) [Ratio] 31.6 kg/m2 Dr. Henok Martinez Work Phone: [facility] 11-21-2023 09:22-0500 Body weight 73.[address] Henok Martinez Work Phone: [facility] 11-21-2023 09:22-0500 Diastolic blood pressure 78 mm[Hg] Dr. Henok Martinez Work Phone: [facility] 11-21-2023 09:22-0500 Heart rate 65 /min Dr. Henok Martinez Work Phone: [facility] 11-21-2023 09:22-0500 Respiratory rate 16 /min Dr. Henok Martinez Work Phone: [facility] 11-21-2023 09:22-0500 Systolic blood pressure 168 mm[Hg] Dr. Henok Martinez Work Phone: [facility] 09-05-2023 15:39-0500 Body weight 73.48 kg ADRIANNA Muller PA-C Work Phone: [facility] 09-05-2023 15:39-0500 Diastolic blood pressure 70 mm[Hg] ADRIANNA JONES-C Work Phone: [facility] 09-05-2023 15:39-0500 Heart rate 68 /min NA Muller PA-C Work Phone: [facility] 09-05-2023 15:39-0500 Respiratory rate 16 /min NA Muller PA-C Work Phone: [facility] 09-05-2023 15:39-0500 SaO2% (BldA) [Mass fraction] 99 % NA Muller PA-C Work Phone: [facility] 09-05-2023 15:39-0500 Systolic blood pressure 132 mm[Hg] NA Muller PA-C Work Phone: [facility] 07-30-2023 16:21-0400 Body mass index (BMI) [Ratio] 32.5 kg/m2 Dr. Henok Martinez Work Phone: [facility] 07-30-2023 16:21-0400 Body weight 75.[address] Henok Martinez Work Phone: [facility] 07-30-2023 16:21-0400 Diastolic blood pressure 66 mm[Hg] Dr. Henok Martinez Work Phone: [facility] 07-30-2023 16:21-0400 Systolic blood pressure 165 mm[Hg] Dr. Henok Martinez Work Phone: [facility] 07-30-2023 16:01-0400 Body height 152.[address] Henok Martinez Work Phone: [facility] 07-30-2023 16:01-0400 Body temperature 96.3 [degF] Dr. Henok Martinez Work Phone: [facility] 07-30-2023 16:01-0400 Heart rate 72 /min Dr. Henok Martinez Work Phone: [facility] 07-30-2023 16:01-0400 Respiratory rate 18 /min Dr. Henok Martinez Work Phone: [facility] 07-30-2023 16:01-0400 SaO2% (BldA) [Mass fraction] 98 % Dr. Henok Martinez Work Phone: 8(915)049-828670 [place] [address] 06-18-2023 10:31-0400 Body mass index (BMI) [Ratio] 32.5 kg/m2 Dr. Henok Martinez Work Phone: 1(012)578-912465 [place] [address] 06-18-2023 10:31-0400 Body temperature 98.4 [degF] Dr. Henok Martinez Work Phone: 0(869)614-986865 [place] [address] 06-18-2023 10:31-0400 Body weight 75.[address] Henok Martinez Work Phone: 1(984)592-475865 [place] [address] 06-18-2023 10:31-0400 Diastolic blood pressure 70 mm[Hg] Dr. Henok Martinez Work Phone: 9(217)803-887765 [place] [address] 06-18-2023 10:31-0400 Heart rate 83 /min Dr. Henok Martinez Work Phone: 0(873)584-231665 [place] [address] 06-18-2023 10:31-0400 Respiratory rate 17 /min Dr. Henok Martinez Work Phone: 9(045)215-879665 [place] [address] 06-18-2023 10:31-0400 SaO2% (BldA) [Mass fraction] 98 % Dr. Henok Martinez Work Phone: 8(374)168-640065 [place] [address] 06-18-2023 10:31-0400 Systolic blood pressure 150 mm[Hg] Dr. Henok Martinez Work Phone: 7(357)088-953465 [place] [address] 04-22-2023 19:53-0400 Diastolic blood pressure 95 mm[Hg] Dr. Henok Martinez Work Phone: 1(209)232-536065 [place] [address] 04-22-2023 19:53-0400 Systolic blood pressure 174 mm[Hg] Dr. Henok Martinez Work Phone: 4(184)859-506065 [place] [address] 04-22-2023 16:52-0400 Body height 152.[address] Henok Martinez Work Phone: 8(195)914-253665 [place] [address] 04-22-2023 16:52-0400 Body mass index (BMI) [Ratio] 32.8 kg/m2 Dr. Henok Martinez Work Phone: [facility] 04-22-2023 16:52-0400 Body temperature 97 [degF] Dr. Henok Martinez Work Phone: [facility] 04-22-2023 16:52-0400 Body weight 76.[address] Henok Martinez Work Phone: [facility] 04-22-2023 16:52-0400 Heart rate 74 /min Dr. Henok Martinez Work Phone: [facility] 04-22-2023 16:52-0400 Respiratory rate 18 /min Dr. Henok Martinez Work Phone: [facility] 04-22-2023 16:52-0400 SaO2% (BldA) [Mass fraction] 96 % Dr. Henok Martinez Work Phone: [facility] 04-15-2023 13:04-0400 Diastolic blood pressure 96 mm[Hg] Clarita Haagen CORPORATE DIRECTOR TALENT ASSESSMENT.[employer]ID[employer]ER Work Phone: [facility] 04-15-2023 13:04-0400 Heart rate 77 /min Clarita Haagen CORPORATE DIRECTOR TALENT ASSESSMENT.[employer]TRID[employer] F[employer]ER Work Phone: [facility] 04-15-2023 13:04-0400 Respiratory rate 16 /min Clarita Haagen CORPORATE DIRECTOR TALENT ASSESSMENT.CARTRID[employer] F[employer]ER Work Phone: [facility] 04-15-2023 13:04-0400 SaO2% (BldA) [Mass fraction] 99 % Clarita Haagen CORPORATE DIRECTOR TALENT ASSESSMENT.[employer]ID[employer] F[employer]ER Work Phone: [facility] 04-15-2023 13:04-0400 Systolic blood pressure 144 mm[Hg] Clarita Haagen CORPORATE DIRECTOR TALENT ASSESSMENT.CAR[employer]IDGE FILLER Work Phone: [facility] 04-05-2023 20:23-0400 Diastolic blood pressure 71 mm[Hg] Dr. Henok Martinez Work Phone: [facility] 04-05-2023 20:23-0400 Heart rate 62 /min Dr. Henok Martinez Work Phone: [facility] 04-05-2023 20:23-0400 Respiratory rate 15 /min Dr. Henok Martinez Work Phone: [facility] 04-05-2023 20:23-0400 SaO2% (BldA) [Mass fraction] 98 % Dr. Henok Martinez Work Phone: [facility] 04-05-2023 20:23-0400 Systolic blood pressure 148 mm[Hg] Dr. Henok Martinez Work Phone: [facility] 04-05-2023 17:38-0400 Body mass index (BMI) [Ratio] 32.2 kg/m2 Dr. Henok Martinez Work Phone: [facility] 04-05-2023 17:38-0400 Body temperature 97.9 [degF] Dr. Henok Martinez Work Phone: [facility] 04-05-2023 17:38-0400 Body weight 74.[address] Henok Martinez Work Phone: [facility] 04-01-2023 16:07-0400 Body weight 74.84 kg Henok Martinez MD Work Phone: [facility] 04-01-2023 16:07-0400 Diastolic blood pressure 72 mm[Hg] Henok Martinez MD Work Phone: [facility] 04-01-2023 16:07-0400 Heart rate 83 /min Henok Martinez MD Work Phone: [facility] 04-01-2023 16:07-0400 SaO2% (BldA) [Mass fraction] 100 % Henok Martinez MD Work Phone: [facility] 04-01-2023 16:07-0400 Systolic blood pressure 172 mm[Hg] Henok Martinez MD Work Phone: [facility] 03-31-2023 01:31-0400 Body temperature 98.6 [degF] Dr. Henok Martinez Work Phone: [facility] 03-31-2023 01:31-0400 Diastolic blood pressure 61 mm[Hg] Dr. Henok Martinez Work Phone: 5(246)979-445065 [place] [address] 03-31-2023 01:31-0400 Heart rate 74 /min Dr. Henok Martinez Work Phone: 8(129)053-202965 [place] [address] 03-31-2023 01:31-0400 Respiratory rate 16 /min Dr. Henok Martinez Work Phone: 9(977)628-654065 [place] [address] 03-31-2023 01:31-0400 SaO2% (BldA) [Mass fraction] 99 % Dr. Henok Martinez Work Phone: 7(104)188-099265 [place] [address] 03-31-2023 01:31-0400 Systolic blood pressure 120 mm[Hg] Dr. Henok Martinez Work Phone: 1(487)569-953365 [place] [address] 03-30-2023 21:40-0400 Body height 152.[address] Henok Martinez Work Phone: 2(373)495-700465 [place] [address] 03-30-2023 21:40-0400 Body mass index (BMI) [Ratio] 32.8 kg/m2 Dr. Henok Martinez Work Phone: 7(054)015-313465 [place] [address] 03-30-2023 21:40-0400 Body weight 76.[address] Henok Martinez Work Phone: 1(508)913-712565 [place] [address] 03-18-2023 11:33-0400 Body height 152.[address] Henok Martinez Work Phone: 8(202)096-721865 [place] [address] 03-18-2023 11:33-0400 Body weight 78.[address] Henok Martinez Work Phone: 3(233)082-922365 [place] [address] 03-15-2023 09:45-0400 Body mass index (BMI) [Ratio] 33.5 kg/m2 Dr. Henok Martinez Work Phone: 1(623)283-462865 [place] [address] 03-07-2023 08:33-0400 Body height 152.[address] Henok Martinez Work Phone: 5(142)841-715965 [place] [address] 03-07-2023 08:33-0400 Body mass index (BMI) [Ratio] 33.5 kg/m2 Dr. Henok Martinez Work Phone: 5(142)488-270765 [place] [address] 03-07-2023 08:33-0400 Body weight 78.[address] Henok Martinez Work Phone: [facility] 03-07-2023 08:33-0400 Diastolic blood pressure 96 mm[Hg] Dr. Henok Martinez Work Phone: [facility] 03-07-2023 08:33-0400 Heart rate 78 /min Dr. Henok Martinez Work Phone: [facility] 03-07-2023 08:33-0400 Respiratory rate 18 /min Dr. Henok Martinez Work Phone: [facility] 03-07-2023 08:33-0400 Systolic blood pressure 160 mm[Hg] Dr. Henok Martinez Work Phone: [facility] 02-25-2023 13:39-0400 Body height 149.[address] [facility] 02-25-2023 13:39-0400 Body weight 75.[address] [facility] 02-08-2023 15:45-0400 Body weight 75.66 kg Sadia Braulio CORPORATE DIRECTOR TALENT ASSESSMENT.[employer]ID[employer] Work Phone: [facility] 02-08-2023 15:45-0400 Diastolic blood pressure 80 mm[Hg] Sadia Wakeman CORPORATE DIRECTOR TALENT ASSESSMENT.[employer]TRID[employer] F[employer]ER Work Phone: [facility] 02-08-2023 15:45-0400 Systolic blood pressure 120 mm[Hg] Sadia Wakeman CORPORATE DIRECTOR TALENT ASSESSMENT.CARTRIDGE FILLER Work Phone: [facility] 01-25-2023 14:16-0400 Diastolic blood pressure 70 mm[Hg] Henok Martinez MD Work Phone: [facility] 01-25-2023 14:16-0400 Systolic blood pressure 146 mm[Hg] Henok Martinez MD Work Phone: [facility] 01-25-2023 13:38-0400 Body height 149.9 cm Henok Martinez MD Work Phone: [facility] 03-31-2023 13:38-0400 Body weight 76.75 kg Henok Martinez MD Work Phone: [facility] 01-25-2023 13:38-0400 Heart rate 82 /min Henok Martinez MD Work Phone: [facility] 01-25-2023 13:38-0400 SaO2% (BldA) [Mass fraction] 97 % Henok Martinez MD Work Phone: [facility] 11-23-2022 14:00-0500 Diastolic blood pressure 76 mm[Hg] Mi Nurse Work Phone: [facility] 11-23-2022 14:00-0500 Heart rate 76 /min Mi Nurse Work Phone: [facility] 11-23-2022 14:00-0500 Systolic blood pressure 141 mm[Hg] Mi Nurse Work Phone: [facility] 11-16-2022 13:11-0500 Body weight 75.75 kg Pulm Wstr Work Phone: [facility] 10-26-2022 13:58-0500 Diastolic blood pressure 80 mm[Hg] Henok Martinez MD Work Phone: [facility] 10-26-2022 13:58-0500 Systolic blood pressure 150 mm[Hg] Henok Martinez MD Work Phone: [facility] 10-26-2022 13:34-0500 Body weight 77.11 kg Henok Martinez MD Work Phone: [facility] 10-26-2022 13:34-0500 Heart rate 92 /min Henok Martinez MD Work Phone: [facility] 10-26-2022 13:34-0500 SaO2% (BldA) [Mass fraction] 98 % Henok Martinez MD Work Phone: [facility] 10-12-2022 14:32-0500 Body height 149.9 cm Pulm Wstr Work Phone: [facility] 10-12-2022 14:32-0500 Body weight 75.3 kg Pulm Wstr Work Phone: [facility] 10-12-2022 14:32-0500 Heart rate 76 /min Pulm Wstr Work Phone: [facility] 10-12-2022 14:32-0500 Respiratory rate 12 /min Pulm Wstr Work Phone: [facility] 10-12-2022 14:32-0500 SaO2% (BldA) [Mass fraction] 98 % Pulm Wstr Work Phone: [facility] 10-01-2022 15:27-0500 Body weight 76.66 kg Henok Martinez MD Work Phone: [facility] 10-01-2022 15:27-0500 Diastolic blood pressure 78 mm[Hg] Henok Martinez MD Work Phone: [facility] 10-01-2022 15:27-0500 Heart rate 107 /min Henok Martinez MD Work Phone: [facility] 10-01-2022 15:27-0500 SaO2% (BldA) [Mass fraction] 99 % Henok Martinez MD Work Phone: [facility] 10-01-2022 15:27-0500 Systolic blood pressure 152 mm[Hg] Henok Martinez MD Work Phone: [facility] 09-05-2022 13:42-0500 Body height 154.9 cm Monet Calvo MD Work Phone: [facility] 09-05-2022 13:42-0500 Body temperature 98.4 [degF] Monet Calvo MD Work Phone: [facility] 09-05-2022 13:42-0500 Body weight 76.2 kg Monet Calvo MD Work Phone: [facility] 09-05-2022 13:42-0500 Diastolic blood pressure 94 mm[Hg] Monet Calvo MD Work Phone: [facility] 09-05-2022 13:42-0500 Heart rate 65 /min Monet Calvo MD Work Phone: [facility] 09-05-2022 13:42-0500 SaO2% (BldA) [Mass fraction] 97 % Monet Calvo MD Work Phone: [facility] 09-05-2022 13:42-0500 Systolic blood pressure 148 mm[Hg] Monet Calvo MD Work Phone: [facility] 01-26-2022 12:27-0400 Diastolic blood pressure 60 mm[Hg] Henok Martinez MD Work Phone: [facility] 01-26-2022 12:27-0400 Systolic blood pressure 138 mm[Hg] Henok Martinez MD Work Phone: [facility] 01-26-2022 09:58-0400 Body weight 74.39 kg Henok Martinez MD Work Phone: [facility] 01-26-2022 09:58-0400 Heart rate 60 /min Henok Martinez MD Work Phone: [facility] 01-26-2022 09:58-0400 Respiratory rate 16 /min Henok Martinez MD Work Phone: [facility] Encounters Encounter Date Encounter Type Care Provider Facility Start: 05-26-2025 End: 05-26-2025 Patient encounter [facility] Comment on above: Population Health Na vigation Outreach ( O WORKBENCH MENDOZA PCSA // ) Start: 05-26-2025 End: 05-26-2025 ambulatory Skyler [facility] Start: 05-26-2025 End: 05-26-2025 Subsequent hospital visit by physician Ct Prep Counts Include 234 Beds At [facility] W[facility] Cat Scan Comment on above: Malignant neoplasm o f head of pancreas (HCC) [C25.0] Start: 05-25-2025 End: 05-25-2025 Telephone encounter Anel Diaz MD Work Phone: Gastroenterology [place] Comment on above: Appointment Start: 05-25-2025 End: [...] Refill Henok Martinez MD Work Phone: Family [facility] Comment on above: Refill Request Start: 04-12-2025 End: 04-12-2025 Refill Henok Martinez MD Work Phone: Family Medicine [place] Comment on above: Refill Request Start: 04-08-2025 End: 04-08-2025 Telephone encounter Lamar Stoner MD Work Phone: Radiation Oncology Comment on above: Appointment Start: 04-06-2025 End: 04-06-2025 ambulatory AYAZ NGUYỄN Facility:[facility] Start: 04-06-2025 End: 04-06-2025 Telephone encounter Anel Diaz MD Work Phone: Gastroenterology [place] Comment on above: RUQ pain (Primary Dx ) Start: 04-06-2025 End: 04-06-2025 Office outpatient visit 40 minutes Ayaz Nguyễn MD Work Phone: [facility] Comment on above: Pancreatic adenocarc inoma (HCC) (Primary Dx) Start: 04-01-2025 End: 04-01-2025 amb[facility] Start: 04-01-2025 End: 04-01-2025 Patient encounter procedure Skyler Bhatia MA [facility] Comment on above: Population Health Na vigation Outreach ( ); Opened In Error Start: 03-30-2025 End: 03-30-2025 Patient encounter procedure Henok Martinez MD Work Phone: [facility] [place] Comment on above: Atrial fibrillation, unspecified type (HCC) (Primary Dx); History of CVA (cerebrovascular accident); Primary hypertension; Hyperlipidemia, unspecified hyperlipidemia type; Bronchiectasis without complication (HCC); Gastroesophageal reflux disease without esophagitis; 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); 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; Type 2 diabetes mellitus with hyperglycemia, with long-term current use of insulin (HCC) Start: 03-30-2025 End: 03-30-2025 ambulatory HENOK MARTINEZ Facility:[facility] Start: 03-19-2025 End: 05-19-2025 Follow-up encounter Henok Martinez MD Work Phone: [facility] Start: 03-18-2025 ambulatory HENOK MARTINEZ Facility :[facility] Start: 03-15-2025 End: 03-15-2025 Telephone encounter Juan Miguel Yusuf MD Work Phone: Hematology/Oncology Comment on above: Patient Update Start: 03-10-2025 End: 03-10-2025 ambulatory Safia Henley RN Work Phone: Pole Peeling Machine Operator Helper Management Comment on above: Primary Care Coordin ator- Other (Chart review) Start: 03-08-2025 End: 03-08-2025 Refill Henok Martinez MD Work Phone: [facility] Comment on above: Refill Request Start: 03-02-2025 End: 03-15-2025 Telephone encounter Juan Miguel Yusuf MD Work Phone: Hematology/Oncology Comment on above: Patient Question Start: 02-24-2025 End: 02-24-2025 Patient encounter procedure Henok Martinez MD Work Phone: [facility] Comment on above: RSV (respiratory syn cytial virus pneumonia) (Primary Dx); Bronchiectasis without complication (HCC); Pancreatic adenocarcinoma (HCC); Type 2 diabetes mellitus with hyperglycemia, with long-term current use of insulin (HCC); Primary hypertension Start: 02-24-2025 End: 02-24-2025 ambulatory HENOK MARTINEZ Facility:[facility] Start: 02-23-2025 End: 02-23-2025 ambulatory Dasha Clemons RN [facility] Radiology Comment on above: You are scheduled fo r a port insertion at [facility] on 03/04 at 12:00 pm Start: 02-23-2025 End: 02-23-2025 E-mail encounter from caregiver Dasha Clemons RN [facility] Radiology Start: 02-23-2025 End: 02-24-2025 Telephone encounter Henok Martinez MD Work Phone: Family [facility] Comment on above: Appt Needs Reschedul ed Medication Request Start: 02-22-2025 End: 02-23-2025 Telephone encounter Maria Isabel Silverio RN Work Phone: Hematology/Oncology Comment on above: Future Appointment Start: 02-22-2025 End: 02-22-2025 Subsequent hospital visit by physician Elysia Counts Include 234 Beds At [facility] Shane Work Phone: Radiology Comment on above: Malignant neoplasm o f head of pancreas (HCC) [C25.0] Start: 02-22-2025 End: 02-22-2025 ambulatory Lab/Port Viraj Counts Include 234 Beds At [facility] W[facility] Work Phone: Hematology/Oncology Comment on above: Malignant neoplasm o f head of pancreas (HCC) Start: 02-15-2025 End: 02-15-2025 Patient Outreach Paulette Cagle RN [employer] Operator Hel[employer] Management Comment on above: Initial phone contac t for Transitional Care Management 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 - H ospital Follow Up Start: 02-11-2025 End: 02-11-2025 Patient Outreach Devon Bynum RN Work Phone: Pole Peeling Machine Operator Helper Management Comment on above: Transition Of Care ( Hospital reach in call) Population Health Na vigation Outreach ([facility] Call) Start: 02-10-2025 End: 02-14-2025 Evaluation and management of inpatient [facility] Facility:[facility] Start: 02-09-2025 End: 02-09-2025 Telephone encounter Maria Isabel Silverio RN Work Phone: Hematology/Oncology Comment on above: Care Coordination (F ollow up Note ) Start: 02-08-2025 End: 02-08-2025 Orders Only Pat Pepe RN [facility] Radiology Comment on above: Malignant neoplasm o f head of pancreas (HCC) (Primary Dx) Care Coordination (F ollow Up Note ) Dental Problem Start: 02-05-2025 End: 02-05-2025 Telephone encounter Addison KUMAR Hematology/Oncology Comment on above: Social Work Services ; Psychosocial Assessment Social Work Services ; Family Support Patient Update Patient Question (co ug) Start: 02-05-2025 End: 02-05-2025 ambulatory HENOK MARTINEZ Facility:[facility] Start: 02-05-2025 End: 02-05-2025 Subsequent hospital visit by physician Xr Counts Include 234 Beds At [facility] Shane Work Phone: Radiology Comment on above: Malignant neoplasm o f head of pancreas (HCC) [C25.0] Start: 02-05-2025 End: 02-05-2025 ambulatory Treatment Rm 8 Counts Include 234 Beds At [facility] W[facility] Work Phone: Hematology/Oncology Comment on above: Malignant neoplasm o f head of pancreas (HCC) (Primary Dx); Dyspnea and respiratory abnormalities Start: 02-04-2025 End: 02-05-2025 Telephone encounter Maria Isabel Silverio RN Work Phone: Hematology/Oncology Comment on above: Care Coordination (F ollow up Note ) Start: 02-04-2025 End: 02-04-2025 Office outpatient visit 40 minutes Ayaz Nguyễn MD Work Phone: [facility] Comment on above: Pancreatic adenocarc inoma (HCC) (Primary Dx) Start: 02-04-2025 End: 02-04-2025 ambulatory AYAZ NGUYỄN Facility:[facility] Start: 02-03-2025 End: 02-03-2025 Telephone encounter Financial Navigator Viraj Work Phone: Hematology/Oncology Comment on above: Benefits Investigati on Start: 02-01-2025 End: 02-01-2025 E-mail encounter from caregiver Dasha Clemons RN [facility] Radiology Start: 02-01-2025 End: 02-01-2025 ambulatory Dasha Clemons RN [facility] Radiology Comment on above: Port placement on read instructions about holding Eliquis Start: 02-01-2025 End: 02-01-2025 Patient encounter procedure Henok Martinez MD Work Phone: [facility] Comment on above: Pancreatic adenocarc inoma (HCC) (Primary Dx); intermediate current use of anticoagulant therapy; History of [...] Telephone encounter Henok Martinez MD Work Phone: [facility] Comment on above: glucometer Social Work Services Start: 01-28-2025 End: 01-28-2025 Telephone encounter Addison KUMAR Hematology/Oncology Comment on above: Social Work Services Start: 01-28-2025 End: 01-28-2025 ambulatory Treatment Rm 6 Viraj [facility] Work Phone: Hematology/Oncology Comment on above: Malignant neoplasm o f head of pancreas (HCC) (Primary Dx) Start: 01-27-2025 End: 01-27-2025 cotton stomper Counts Include 234 Beds At [facility] Ws Work Phone: Hematology/Oncology Comment on above: Encounter for educat ion (Primary Dx); 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) Start: 01-26-2025 End: 01-26-2025 ambulatory Stuart Dias RN [employer] Peeling Machine Operator Helper Management Start: 01-26-2025 End: 01-26-2025 Telephone encounter Henok Martinez MD Work Phone: [facility] Comment on above: Constipation [...] Evaluation and management of inpatient VIN GUERRA Facility:[facility] Start: 01-21-2025 End: 01-21-2025 Telephone encounter Ashutosh Freeman MD Work Phone: [facility] Hematology/Oncology Start: 01-19-2025 End: 01-20-2025 Telephone encounter Henok Martinez MD Work Phone: [facility] Comment on above: diabetic supplies (L ibre 3 CGM system) Start: 01-15-2025 End: 01-15-2025 Evaluation and management of inpatient ADRIÁN SANDHU Facility:[facility] Start: 01-14-2025 End: 01-23-2025 Evaluation and management of inpatient GUILLE BELA GARNICA Facility:[facility] Start: 01-14-2025 Non-patient / [facility] Work Phone: Start: 01-13-2025 Non-patient / Non-visit Dr. Mal Wu DO [facility] Work Phone: Start: 01-12-2025 Non-patient / [facility] Work Phone: Start: 01-12-2025 End: 01-12-2025 ambulatory Henok Martinez Facility:[facility] Start: 01-11-2025 Non-patient / Non-visit Mohit Lockhart nd -[facility] Start: 01-11-2025 Non-patient / Non-visit Dr. Mal Wu [facility] Inpatient Physicians Work Phone: Start: 01-10-2025 ambulatory Mohit Brown Facility :[facility] Start: 01-10-2025 End: 01-14-2025 Evaluation and management of [facility] Work Phone: Start: 01-10-2025 Evaluation and management of inpatient Dr. Oniel Golden DO [facility] Work Phone: Start: 01-04-2025 End: 01-04-2025 ambulatory Brett Hatch RN Work Phone: Pole Peeling Machine Operator Helper Management Comment on above: Started Initial enro llment outreach for Chronic Disease Management Start: 12-15-2024 End: 12-15-2024 Refill Henok Martinez MD Work Phone: [facility] Comment on above: Refill Request Start: 11-17-2024 End: 11-17-2024 E-mail encounter from caregiver Angelia Hart CORPORATE DIRECTOR TALENT ASSESSMENT.CARTRIDGE FILLER Work Phone: Pulmonary Medicine Start: 11-17-2024 End: 11-17-2024 Follow-up encounter Angelia Hart CORPORATE DIRECTOR TALENT ASSESSMENT.CARTRIDGE FILLER Work Phone: Pulmonary Medicine Comment on above: follow-up from visit Start: 11-17-2024 End: 11-17-2024 ambulatory ANGELIA HART Facility:[facility] Start: 11-17-2024 End: 11-17-2024 Office outpatient visit 25 minutes Angelia Hart CORPORATE DIRECTOR TALENT ASSESSMENT.CARTRIDGE FILLER Work Phone: Pulmonary Medicine Comment on above: Mild persistent asth ma without complication (Primary Dx); Cough, unspecified type; Hemoptysis; Bronchiectasis without complication (HCC); Dysphagia, unspecified type Start: 11-12-2024 End: 11-12-2024 ambulatory HENOK MARTINEZ Facility:[facility] Start: 11-12-2024 End: 11-12-2024 Subsequent hospital visit by physician [facility] Work Phone: Radiology Comment on above: Epigastric pain [R10 .13] Start: 11-09-2024 End: 11-09-2024 Patient encounter procedure Meliza Wadsworth CCC-PATIENT ACCOUNTS SPECIALIST Work Phone: [facility] Speech Therapy Comment on above: Dysphagia, oropharyn geal phase (Primary Dx) Start: 11-09-2024 End: 11-09-2024 ambulatory Meliza Wadsworth CCC-PATIENT ACCOUNTS SPECIALIST Work Phone: [facility] Speech Therapy Start: 11-09-2024 End: 11-09-2024 Subsequent hospital visit by physician Gi/Gu [address] [place] [address] Hosp Work Phone: Radiology Comment on above: Oropharyngeal dyspha melissa [R13.12] Start: 11-06-2024 End: 11-14-2024 Telephone encounter Henok Martinez MD Work Phone: [facility] Comment on above: Results Start: 11-05-2024 End: 11-05-2024 Subsequent hospital visit by physician Xr Counts Include 234 Beds At [facility] Work Phone: Radiology Comment on above: Hemoptysis [R04.2] Start: 11-05-2024 End: 11-05-2024 ambulatory HENOK MARTINEZ Facility:[facility] Start: 11-04-2024 End: 11-04-2024 Patient encounter procedure Henok Martinez MD Work Phone: [facility] Comment on above: Cerebrovascular acci dent (CVA), unspecified mechanism (HCC) (Primary Dx); Type 2 diabetes mellitus without complication, without long-term current use of insulin (HCC); Atrial fibrillation, unspecified type (HCC); Atrial myxoma; Primary hypertension; Hyperlipidemia, unspecified hyperlipidemia type; Bronchiectasis without complication (HCC); Gastroesophageal reflux disease without esophagitis; History of CVA (cerebrovascular accident); 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 Start: 09-17-2024 End: 09-17-[address] Henok Martinez MD -Physical Therapy Work Phone: Start: 07-09-2024 End: 07-09-2024 ambulatory Jatinder Palmerjerome Facility:[facility] Start: 07-01-2024 End: 07-01-2024 ambulatory [facility] Facility:[facility] Start: 07-01-2024 End: 07-01-2024 Patient encounter procedure Henok Martinez MD Work Phone: [facility] Comment on above: Cervical radicular p ain (Primary Dx); Atrial fibrillation, unspecified type (HCC); Hyperlipidemia, unspecified hyperlipidemia type; Primary hypertension; Type 2 diabetes mellitus without complication, without long-term current use of insulin (HCC); History of CVA (cerebrovascular accident) Start: 06-25-2024 End: 06-25-2024 Emergency department patient visit [facility] Facility:[facility] Start: 06-11-2024 ambulatory Nancy Medley MD Work Phone: Pulmonary Medicine Comment on above: Question regarding X R RIBS/CHEST 3V AP RIB/OBLS/CXR RIGHT Start: 06-06-2024 End: 06-06-2024 ambulatory [facility] Facility:[facility] Start: 06-06-2024 End: 06-06-2024 Subsequent hospital visit by physician Elysia [facility] Work Phone: Radiology Comment on above: Rib pain on right si de [R07.81] Start: 06-05-2024 End: 06-05-2024 [facility] Facility:[facility] Start: 06-05-2024 End: 06-05-2024 Patient encounter [...] Telephone encounter Henok Martinez MD Work Phone: [facility] [place] Comment on above: Results Start: 05-01-2024 End: 05-01-2024 Subsequent hospital visit by physician Elysia Counts Include 234 Beds At [facility] Work Phone: Radiology Comment on above: Abnormal x-ray [R93. 89] Start: 05-01-2024 End: 05-01-2024 Patient encounter procedure Henok Martinez MD Work Phone: [facility] [place] Comment on above: Primary hypertension (Primary Dx); [...] 03-20-2024 Refill Henok Martinez MD Work Phone: [facility] [place] Comment on above: Refill Request Start: 03-06-2024 Telephone encounter Henok Martinez MD Work Phone: [facility] Comment on above: Results Start: 03-05-2024 Telephone encounter Henok Martinez MD Work Phone: [facility] Comment on above: Results Start: 03-04-2024 End: 03-04-2024 Subsequent hospital visit by physician Xr Counts Include 234 Beds At [facility] [place] Work Phone: Radiology Comment on above: Bronchitis [J40] Start: 03-04-2024 End: 03-04-2024 Patient encounter procedure Henok Martinez MD Work Phone: [facility] Comment on above: Type 2 diabetes amy itus without complication, without long- term current use of insulin (HCC) (Primary Dx); Mild intermittent asthma without complication; Bronchiectasis without complication (HCC); Bronchitis; Weight loss Start: 03-02-2024 Telephone encounter Henok Martinez MD Work Phone: [facility] Comment on above: Patient Update; Nathalie ent Question Start: 02-25-2024 End: 02-25-2024 Emergency department patient [facility] Henok Martinez [facility]: Start: 02-21-2024 Telephone encounter Henok Martinez MD Work Phone: [facility] Comment on above: Medication Request; Patient Update Start: 02-19-2024 End: 02-19-2024 Patient encounter procedure Lana Alanis APRN.CARTRIDGE FILLER Work Phone: [facility] Comment on above: Sore throat (Primary Dx); URI, acute Start: 02-07-2024 End: 02-07-2024 Office outpatient visit 15 minutes Fazal Law APRN.CARTRIDGE FILLER Work Phone: [facility] Comment on above: Diarrhea, unspecifie d type (Primary Dx) Start: 12-26-2023 Refill Clarita Boggs APRN.CARTRIDGE FILLER Work Phone: [facility] Comment on above: Refill Request Start: 12-16-2023 End: 12-16-2023 Patient encounter procedure Henok Martinez MD Work Phone: [facility] Comment on above: Cerebrovascular acci dent (CVA), unspecified mechanism (HCC) (Primary Dx); History of CVA (cerebrovascular accident); Primary hypertension; Atrial fibrillation, unspecified type (HCC); Atrial myxoma; Bronchiectasis without complication (HCC); Type 2 diabetes mellitus without complication, without long-term current use of insulin (HCC) Start: 11-21-2023 End: 11-21-[address] Henok Martinez Work Phone: [facility] Work Phone: Start: 10-04-2023 End: 10-04-[address] Henok Martinez Work Phone: [facility] Work Phone: Start: 10-04-2023 End: 10-04-[address] Henok Martinez Work Phone: [facility] Work Phone: Start: 09-18-2023 Telephone encounter Taco Muller PA-C Work Phone: [facility] Start: 09-05-2023 End: 09-05-2023 Patient encounter procedure Taco Muller PA-C Work Phone: [facility] Comment on above: Cerebrovascular acci dent (CVA), unspecified mechanism (HCC) (Primary Dx); Atrial fibrillation, unspecified type (HCC); Primary hypertension; Atrial myxoma; intermediate current use of anticoagulant therapy; Hyperlipidemia, unspecified hyperlipidemia type; History of CVA (cerebrovascular accident); Impaired cognition; Bronchiectasis without complication (HCC); Mild intermittent asthma without complication; Type 2 diabetes mellitus without complication, without long-term current use of insulin (HCC); Gastroesophageal reflux disease without esophagitis; History of uterine cancer; Encounter for immunization; Pill dysphagia; Left ear pain Start: 08-05-2023 Refill Henok Martinez MD Work Phone: [facility] Comment on above: Refill Request Start: 07-30-2023 End: 07-30-2023 Emergency department patient visit Dr. Henok Martinez Work Phone: [facility] Work Phone: Start: 06-25-2023 [...] encounter procedure Dr. Henok Martinez Work Phone: [facility] Work Phone: Start: 06-18-2023 End: 06-18-[address] Henok Martinez Work Phone: [facility] Neurology Work Phone: Start: 04-22-2023 End: 04-22-2023 Emergency department patient [facility] Dr. Henok Martinez [facility] Start: 04-15-2023 End: 04-15-2023 Office outpatient visit 15 minutes Clarita Boggs APRN.CNP Work Phone: [facility] Comment on above: Primary hypertension (Primary Dx); History of CVA (cerebrovascular accident); Atrial fibrillation, unspecified type (HCC) Start: 04-05-2023 End: 04-05-2023 Emergency department patient [facility] Dr. Henok Martinez [facility] Start: 04-01-2023 End: 04-01-2023 Patient encounter procedure Henok Martinez MD Work Phone: [facility] Comment on above: Primary hypertension (Primary Dx); Type 2 diabetes mellitus without complication, without long-term current use of insulin (HCC) Start: 03-30-2023 End: 03-31-2023 Emergency department patient visit Dr. Henok Martinez [facility] Start: 03-18-2023 Non-patient / Non-visit Dr. Bernardo Martinez Work Phone: [facility] Start: 03-18-2023 End: 03-18-2023 Admission to same day surgery center Dr. Henok Martinez Work Phone: [facility]/Special [facility] Start: 03-18-2023 End: 03-18-[address] Heonk Martinez Work Phone: [facility] Work Phone: Start: 03-07-2023 End: 03-07-[address] Henok Martinez Work Phone: [facility] Work Phone: Start: 03-07-2023 End: 03-07-[address] Henok Martinez Work Phone: [facility], [facility] Start: 03-07-2023 End: 03-07-[address] Henok Martinez Work Phone: [facility] [facility] Start: 02-25-2023 End: 02-25-[address] Nutrition Therapy Comment on above: Assessment; Patient Education Start: 02-15-2023 End: 02-15-2023 Patient encounter procedure Emma Mcnally OD Work Phone: Ophthalmology Comment on above: Type 2 diabetes amy itus without complication, without long- term current use of insulin (HCC) (Primary Dx); Pseudophakia of both eyes; Presbyopia Start: 02-14-2023 Telephone encounter Sadia cagle APRN.CARTRIDGE FILLER Work Phone: OB/Gynecology Comment on above: Results Start: 02-13-2023 End: 02-13-2023 Subsequent hospital visit by physician Tatyana Counts Include 234 Beds At [facility] (I-Stat) Work Phone: Cat Scan Comment on above: Pelvic and perineal pain [R10.2] Start: 02-08-2023 End: 02-08-2023 Patient encounter procedure Sadia Ramsey APRN.CARTRIDGE FILLER Work Phone: OB/Gynecology Comment on above: Vaginal bleeding (Pr imary Dx); Pelvic and perineal pain; History of uterine cancer Start: 01-25-2023 End: 01-25-2023 Patient encounter procedure Henok Martinez MD Work Phone: [facility] Comment on above: Primary hypertension (Primary Dx); Type 2 diabetes mellitus without complication, without long-term current use of insulin (HCC); Atrial myxoma; History of uterine cancer; History of CVA (cerebrovascular accident); Gastroesophageal reflux disease without esophagitis; Bronchiectasis without complication (HCC); Mild intermittent asthma without complication Start: 11-23-2022 End: 11-23-2022 Nursing evaluation of patient and report Mi Nurse Work Phone: [facility] Comment on above: Primary hypertension (Primary Dx) Start: 11-23-2022 Telephone encounter Henok Martinez MD Work Phone: [facility] [place] Comment on above: Blood Pressure Check (/) Start: 11-22-2022 End: 11-22-2022 Patient encounter procedure Nancy Medley MD Work Phone: Pulmonary Medicine Comment on above: Bronchiectasis witho ut complication (HCC) (Primary Dx); Mild intermittent asthma without complication Start: 11-20-2022 End: 11-20-2022 Subsequent hospital visit by physician Ct Counts Include [address] [facility] (I-Stat) Work Phone: Cat Scan Comment on above: Chronic cough [R05.3 ] Start: 11-16-2022 End: 11-16-2022 ambulatory Pulm Lab Counts Include [address] [facility] Work Phone: PULM LAB [facility] Comment on above: Spirometry Start: 11-16-2022 End: 11-16-2022 Patient encounter procedure Pulm Lab Counts Include [address] [facility] Work Phone: [place] [place] Comment on above: Chronic cough (Prima ry Dx); Abnormal chest x-ray; Mild persistent asthma without complication Start: 10-26-2022 End: 10-26-2022 Subsequent hospital visit by physician Xr Counts Include [address] At [facility] [place] Work Phone: Radiology Comment on above: Cough, unspecified t ype [R05.9] Start: 10-26-2022 End: 10-26-2022 Patient encounter procedure Henok Martinez MD Work Phone: [facility] [place] Comment on above: Cough, unspecified t ype (Primary Dx); Primary hypertension Start: 10-23-2022 Refill Henok Martinez MD Work Phone: [facility] Comment on above: Refill Request Start: 10-15-2022 Telephone encounter Henok Martinez MD Work Phone: [facility] Comment on above: Results Start: 10-12-2022 End: 10-12-2022 ambulatory Pulm Lab Counts Include [address] Work Phone: PULM LAB [facility] Comment on above: Spirometry Start: 10-12-2022 End: 10-12-2022 Patient encounter procedure Pulm Lab Counts Include [address] [facility] Work Phone: [place] [place] Start: 10-01-2022 End: 10-01-2022 Patient encounter procedure Henok Martinez MD Work Phone: [facility] Comment on above: Atrial myxoma (Prima ry Dx); Primary hypertension; Type 2 diabetes mellitus without complication, without long-term current use of insulin (HCC); History of CVA (cerebrovascular accident); Mild intermittent asthma without complication Start: 09-25-2022 ambulatory Chanel avila RN LD SURGERY Start: 09-17-2022 Telephone encounter Henok Martinez MD Work Phone: [facility] Comment on above: Medication Problem ( Dry cough) Start: 09-05-2022 Telephone encounter Monet Krishnamurthy MD Work Phone: General Surgery Comment on above: 10/04/2022 colon lodi Start: 09-05-2022 End: 09-05-2022 Patient encounter procedure Monet Calvo MD Work Phone: General Surgery Comment on above: Change in bowel habi ts (Primary Dx) Start: 07-16-2022 Refill Henok Martinez MD Work Phone: [facility] Comment on above: Refill Request (Need s 90 days & New Pharmacy) Start: 05-18-2022 Refill Henok Martinez MD Work Phone: [facility] Comment on above: Refill Request Start: 04-23-2022 Telephone encounter Henok Martinez MD Work Phone: [facility] Comment on above: Medication Request Start: 01-29-2022 Telephone encounter Henok Martinez MD Work Phone: [facility] Comment on above: Results; Patient Upd ate Start: 01-26-2022 End: 01-26-2022 Patient encounter procedure Henok Martinez MD Work Phone: [facility] Comment on above: History [...] exam swallow function contrast study Virginia Reina CORPORATE DIRECTOR TALENT ASSESSMENT.CARTRIDGE FILLER Work Phone: Start: 11-05-2024 Radiologic exam chest [...] A/B & RSV NAAT, ROUTINE Lana Alanis CORPORATE DIRECTOR TALENT ASSESSMENT.CARTRIDGE FILLER Work Phone: Start: 02-19-2024 STREP A MOLECULAR [...] 02-13-2023 Ct pelvis w/contrast material Sadia Metc custodial CORPORATE DIRECTOR TALENT ASSESSMENT.CARTRIDGE FILLER Work Phone: Start: 02-08-2023 Urnls dip stick/tablet rgnt auto w/o microscopy Sadia Wakeman CORPORATE DIRECTOR TALENT ASSESSMENT.CARTRIDGE FILLER Work Phone: Start: 11-20-2022 Ct thorax w/o [...] 11-05-2025 Hepatitis B screening Urine Albumin:Creatinine Ratio [facility] Start: 11-05-2025 Hepatitis B surface antibody level LDL Cholesterol [facility] Start: 07-01-2025 Covid-19 Vaccine () Covid-19 Vaccine () [facility] Comment on above: Postponed from 06/28/2024 (Declined at t his time) Start: 07-01-2025 Covid-19 Vaccine () Covid-19 Vaccine () [facility] Comment on above: Postponed from 06/28/2024 (Declined at t his time) Start: 07-01-2025 Covid-19 Vaccine (3 - Pfizer risk series) Covid-19 Vaccine (3 - Pfizer risk series) [facility] Comment on above: Postponed from 03/29/2021 (Declined at t his time) Start: 07-01-2025 Shingrix Vaccine (1 of 2) Shingrix Vaccine (1 of 2) [facility] Comment on above: Postponed from 1990 (Declined at t his time) Postponed from 06/17 (Declined at this time) Start: 07-01-2025 Urine microalbumin profile DTaP,Tdap,Td Vaccine (1 - Tdap) [facility] Comment on above: Postponed from 1959 (Declined at t his time) Start: 06-28-2025 Influenza vaccination [facility] Start: 06-24-2025 End: 06-24-2025 Patient encounter procedure 06/24/2025 9:15 AM EDT Appointment [facility] [address] [place] [address] Emily, Anel Billings MD [address] [facility] [place] [address] Pt on Eliquis and aware to stop 3 days prior, not on diabetic meds to stop [facility] Comment on above: Pt on Eliquis and aware to stop 3 days p rior, not on diabetic meds to stop Start: 2025 End: 2025 ambulatory 2025 10:40 AM EDT PAT Pre Surgical Testing 1 [place] [address] Diaz on 06/24 9:15am Pre Surgical Testing Comment on above: ERCP scheduled with Dr Diaz on 06/24 9:1 5am Start: 06-04-2025 End: 06-04-2025 Patient encounter procedure 06/04/2025 11:00 AM EDT Office Visit Radiation Oncology [address] [place], [place] [phone] Lamar Stoner MD [address] [place], [place] [phone] OV Radiation Oncology Comment on above: OV Start: 06-04-2025 End: 06-04-2025 ambulatory 06/04/2025 10:10 AM EDT Visit (SP) Office Hematology/Oncology [address] [place], [place] [phone] Juan Miguel Yusuf MD [address] [place], [place] [phone] OV/CT 05/26* Hematology/Oncology Comment on above: OV/CT 05/26* Start: 05-26-2025 Subsequent hospital visit by physician 05/26/2025 1:28 PM EDT Hospital Encounter Cat Scan [address] [place] [address] 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) [C25.0] Cat Scan Comment on above: Malignant neoplasm of head of pancreas ( HCC) [C25.0] Start: 05-26-2025 End: 05-26-2025 Patient encounter procedure Cat Scan Comment on above: Malignant neoplasm of head of pancreas ( HCC) [C25.0] Start: 05-26-2025 End: 05-26-2025 ambulatory 05/26/2025 10:30 AM EDT Infusion Center Hematology/Oncology [address] [place] [address] (SO)CBC(PORT)D15 GEMZAR ABRAXAZANE* Hematology/Oncology Comment on above: (SO)CBC(PORT)D15 GEMZAR ABRAXAZANE* Start: 05-25-2025 End: 08-24-2025 Cancer Ag 19-9 [Units/volume] in Serum or Plasma [facility] Comment on above: Expected: 05/25/2025, Expires: Start: 05-25-2025 End: 05-25-2025 ambulatory 05/25/2025 12:00 PM EDT Visit (SP) Office Hematology/Oncology [address] [place] [address] Juan Miguel Yusuf MD [address] [place] [address] OV* BACK IN [facility] Hematology/Oncology Comment on above: OV* BACK IN [facility] Start: 05-19-2025 End: 05-19-2025 ambulatory 05/19/2025 11:00 AM EDT Infusion Center Hematology/Oncology [address] [place] [address] (SO)CBC(PORT)D8 GEMZAR ABRAXANE* Hematology/Oncology Comment on above: (SO)CBC(PORT)D8 GEMZAR ABRAXANE* Start: 05-12-2025 End: 05-12-2025 ambulatory 05/12/2025 11:00 AM EDT Infusion Center Hematology/Oncology [address] [place] [address] QMO GEMZAR ABRAXANE(PORT)/C4-6/LAB &OV 05/10* Hematology/Oncology Comment on above: QMO GEMZAR ABRAXANE(PORT)/C4-6/LAB&OV * Start: 05-10-2025 End: 05-10-2025 ambulatory Hematology/Oncology Comment on above: (SO)CBC/CMP(S)(PORT)* OV/LAB EARLY(PORT)/C HEMO 05/12* PARAMJIT Start: 05-05-2025 End: 05-05-2025 ambulatory 05/05/2025 11:00 AM EDT Infusion Center Hematology/Oncology [address] [place] [address] (SO)CBC(PORT)D8 GEMZAR ABRAXANE* Hematology/Oncology Comment on above: (SO)CBC(PORT)D8 GEMZAR ABRAXANE* Start: 05-01-2025 Anxiety Screening Anxiety Screening [facility] Start: 05-01-2025 Depression Screening Depression Screening [facility] Start: 05-01-2025 Diabetic foot examination Diabetic Foot Exam [facility] Start: 04-29-2025 End: 04-29-2025 Patient encounter procedure 04/29/2025 2:45 PM EDT Office Visit [facility] Ophthalmology [address] [place] [address] Emma Mcnally, OD [address] [place] [address] diabetic eye exam Ophthalmology Comment on above: diabetic eye exam Start: 04-29-2025 End: 07-29-2025 CBC W Auto Differential panel - Blood COMPLETE BLOOD COUNT AND DIFFERENTIAL Lab Routine 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) Expected: 04/29/2025, Expires: 07/29/2025 [facility] Work Phone: Comment on above: Expected: 04/29/2025, Expires: Start: 04-29-2025 End: 07-29-2025 Comprehensive metabolic 2000 panel - Serum or Plasma COMPREHENSIVE METABOLIC PANEL Lab Routine 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) Expected: 04/29/2025, Expires: 07/29/2025 [facility] Comment on above: Expected: 04/29/2025, Expires: Start: 04-29-2025 End: 07-29-2025 Hemoglobin A1c in Blood HEMOGLOBIN A1C Lab Routine Type 2 diabetes mellitus with hyperglycemia, with long-term current use of insulin (HCC) Expected: 04/29/2025, Expires: 07/29/2025 [facility] Comment on above: Expected: 04/29/2025, Expires: Start: 04-28-2025 Glaucoma screening Dilated Retinal Exam [facility] Start: 04-28-2025 End: 04-28-2025 ambulatory 04/28/2025 10:30 AM EDT Infusion Center Hematology/Oncology [address] [place] [address] (SO)CBC(PORT)D15 GEMZAR ABRAXAZANE* Hematology/Oncology Comment on above: (SO)CBC(PORT)D15 GEMZAR ABRAXAZANE* Start: 04-26-2025 Influenza vaccination Influenza Vaccine (#1) [facility] Comment on above: Postponed from 06/28/2024 (Declined at t his time) Start: 04-22-2025 End: 04-22-2025 ambulatory 04/22/2025 11:00 AM EDT Infusion Center Hematology/Oncology [address] [place] [address] QMO GEMZAR ABRAXANE(PORT)/C4-6/LAB &OV 04/21* Hematology/Oncology Comment on above: QMO GEMZAR ABRAXANE(PORT)/C4-6/LAB&OV * Start: 04-21-2025 End: 04-21-2025 ambulatory Hematology/Oncology Comment on above: (SO)CBC/CMP(S)(PORT)* OV/LAB EARLY(PORT)/C HEMO 04/22* ABRAMOVICH (SO)CBC(PORT)D15 GEM BROOKS ABRAXAZANE* (SO)CBC(PORT)D8 GEMZ AR ABRAXANE* Start: 04-20-2025 End: 04-20-2025 Patient encounter procedure 04/20/2025 8:00 AM EDT Appointment [facility] [address] [place] [address] Anel Diaz MD [address] [facility] [place] [address] Pt on Eliquis and aware to stop 3 days prior, not on any diabetic meds that need stopped [facility] Comment on above: Pt on Eliquis and aware to stop 3 days p rior, not on any diabetic meds that need stopped Start: 04-19-2025 Hemoglobin A1c measurement HbA1C [facility] Start: 04-19-2025 End: 04-19-2025 Patient encounter procedure 04/19/2025 1:30 PM EDT Office Visit Radiation Oncology [address] [place], [place] [phone] Lamar Stoner MD [address] [place], [place] [phone] PANCREATIC ADENOCARCINOMA CONSULT* Radiation Oncology Comment on above: PANCREATIC ADENOCARCINOMA CONSULT* Start: 04-19-2025 End: 04-19-2025 ambulatory 04/19/2025 9:20 AM EDT PAT Pre Surgical Testing [address] [place], [place] [id number] ERCP IN ENDO Pre Surgical Testing Comment on above: ERCP IN ENDO Start: 04-14-2025 End: 04-14-2025 ambulatory Hematology/Oncology Comment on above: (SO)CBC(PORT)D8 GEMZAR ABRAXANE* QMO GEMZAR ABRAXANE( PORT)/C3-6/LAB&OV 04/12* Start: 04-12-2025 End: 04-12-2025 ambulatory Hematology/Oncology Comment on above: (SO)CBC/CMP(S)(PORT)* OV/LAB EARLY(PORT)/C HEMO 04/14* PARAMJIT Start: 04-07-2025 End: 04-07-2025 ambulatory [facility] Comment on above: CBC* D15 GEMZAR ABRAXAZAN E/LAB EARLY* (SO)CBC* (SO)CBC(PORT)D15 GEM BROOKS ABRAXAZANE* QMO GEMZAR ABRAXANE( PORT)/C3-6/LAB&OV 04/05* Start: 04-06-2025 End: 04-06-2025 Patient encounter procedure 04/06/2025 1:45 PM EDT Office Visit [facility] SURGERY DEPARTMENT [address] [facility] 3rd [place] [address] Ayaz Nguyễn MD [address] [place] [address] Patient wants to discuss options other than chemo [facility] SUR[facility]ERY [facility]PART[facility] Comment on above: Patient wants to discuss options other t santos chemo Start: 04-05-2025 End: 04-05-2025 ambulatory Hematology/Oncology Comment on above: (SO)CBC/CMP(S)(PORT)OV TODAY* OV/LAB EARLY(PORT)/C HEMO * ABRAMOVICH Start: 03-31-2025 End: 03-31-[address] [facility] Comment on above: CBC* D8 GEMZAR ABRAXANE/L AB EARLY* (SO)CBC* (SO)CBC(PORT)D8 GEMZ AR ABRAXANE* Start: 03-30-2025 End: 03-30-2025 Patient encounter procedure 03/30/2025 2:00 PM EDT Office Visit Family Virgie Mendoza [address] [place], [place] [phone] Henok Martinez MD [address] [place], [place] [phone] 6 week follow up [facility] Comment on above: 6 week follow up Start: 03-30-2025 End: 03-30-2025 ambulatory 03/30/2025 10:00 AM EDT Infusion Center Hematology/Oncology [address] [place], [place] [phone] (SO)CBC(PORT)D15 GEMZAR ABRAXAZANE* Hematology/Oncology Comment on above: (SO)CBC(PORT)D15 GEMZAR ABRAXAZANE* Start: 03-25-2025 End: 03-25-2025 ambulatory Hematology/Oncology Comment on above: QMO GEMZAR ABRAXANE/C3-6/LAB&OV 03/23* QMO GEMZAR ABRAXANE( PORT)/C3-6/LAB&OV 03/23* (SO)CBC(PORT)D15 GEM BROOKS ABRAXAZANE* Start: 03-23-2025 End: 03-23-[address] [facility] Comment on above: CBC/CMP* OV/LAB EARLY/CHEMO [...] procedure 03/12/2025 2:40 PM EDT Office Visit [facility] [address] [place] [address] Henok Martinez MD [address] [place], [place] [address] 6 wk follow up [facility] Comment on above: 6 wk follow up Start: 03-11-2025 End: 03-11-2025 ambulatory 03/11/2025 1:00 PM EDT [facility] [address] [place] [address] Marci Nowak LGC [address] [place] [address] Pancreatic cancer Genetic [facility] Comment on above: Pancreatic cancer Start: 03-10-2025 End: 03-26-2026 XR Chest PA and Lateral XR CHEST 2V FRONTAL/LAT Radiology Routine RSV (respiratory syncytial virus pneumonia) Expected: 03/10/2025, Expires: 03/26/2026 [facility] Work Phone: Comment on above: Expected: 03/10/2025, Expires: Start: 03-10-2025 End: 03-10-2025 ambulatory 03/10/2025 10:30 AM EDT [facility] Center Hematology/Oncology [address], [place] [phone] QMO GEMZAR ABRAXANE(PORT)/C2-6/LAB &OV 03/09* Hematology/Oncology Comment on above: QMO GEMZAR ABRAXANE(PORT)/C2-6/LAB&OV * Start: 03-10-2025 End: 03-10-2025 ambulatory [facility] Comment on above: CBC* CBC/ GEMZAR ABRAXAZA NE/D15* D15 GEMZAR ABRAXAZAN E/LAB EARLY* (SO)CBC* (SO)CBC(PORT)D15 GEM BROOKS ABRAXAZANE* Start: 03-09-2025 End: 03-09-2025 ambulatory Hematology/Oncology Comment on above: (SO)CBC/CMP(S)(PORT)* OV/LAB EARLY(PORT)/C HEMO 03/10* ABRAMOVICH Start: 03-05-2025 End: 03-05-2025 Patient encounter procedure 03/05/2025 10:30 AM EDT Office Visit [facility] [address] [place] [address] Anisa Gutierrez, MS [address] [place] [address] Pancreatic cancer [facility] Comment on above: Pancreatic cancer Start: 03-04-2025 End: 03-04-2025 Admission to same day surgery center 03/04/2025 12:00 PM EDT - 03/04/2025 1:30 PM EDT [facility] Radiology [address] [place] [address] Yasmin Lawrence MD, [address] [place] [address] INSERTION PORT VENOUS ACCESS ADULT [facility] Radiology Comment on above: INSERTION PORT VENOUS ACCESS ADULT Start: 03-04-2025 End: 03-04-2025 Insj tunneled ctr vad w/subq port age 5 yr/> INSERTION PORT VENOUS ACCESS ADULT 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) 03/04/2025 12:00 PM EDT ME IR Start: 03-04-2025 Subsequent hospital visit by physician 03/04/2025 12:00 PM EDT Hospital Encounter [facility] Radiology [address] [place] [address] Yasmin Lawrence MD, [address] [place] [address] 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) [C25.0] [facility] Comment on above: Malignant neoplasm of head of pancreas ( HCC) [C25.0] Start: 03-03-2025 End: 03-03-2025 ambulatory [facility] Comment on above: CBC* CBC/GEMZAR ABRAXANE/ D8* D8 GEMZAR ABRAXANE/L AB EARLY* (SO)CBC* (SO)CBC(PORT)D8 GEMZ AR ABRAXANE* Start: 02-24-2025 End: 02-24-2025 Patient encounter procedure 02/24/2025 11:40 AM EDT Office Visit [facility] [place] [address] [place] [address] Jorge Becker MD [address] [place] [address] continued cough follow up (PT WAS ADMITTED TO [facility] 02/10-02/14/25 DX:PNEUMONIA, RSV) - patient insisting on seeing , no FIRE OFFICER [facility] [place] Comment on above: continued cough follow up (PT WAS ADMITT ED TO [facility] 02/10-02/14/25 DX:PNEUMONIA, RSV) - patient insisting on seeing , no FIRE OFFICER Start: 02-24-2025 End: 02-24-2025 ambulatory Hematology/Oncology Comment on above: QMO GEMZAR ABRAXANE/D1/C2/6-LAB&OV 02/23* QMO GEMZAR ABRAXANE/ C2-6/LAB&OV 02/23* QMO GEMZAR ABRAXANE( PORT)/C2-6/LAB&OV 02/22* Start: 02-23-2025 End: 02-23-2025 ambulatory [facility] Comment on above: CBC/CMP* CBC/CMP/OV/CHEMO 01/28 0* OV/LAB EARLY/CHEMO * ABRAMOVICH Start: 02-22-2025 End: 02-22-2025 ambulatory [facility] Comment on above: (SO)CBC/CMP(S)* OV/LAB EARLY/CHEMO * ABRAMOVICH (SO)CBC/CMP(S)(PORT) * OV/LAB EARLY(PORT)/C HEMO 02/24* PARAMJIT Start: 02-19-2025 End: 02-19-2025 Patient encounter procedure 02/19/2025 1:00 PM EDT Office Visit Endocrinology [address] [place], [place] [phone] Rosaura Sanchez MD [address] [place] [address] Type 2 diabetes mellitus without complication, without long-term current use of ... Endocrinology Comment on above: Type 2 diabetes mellitus without complic ation, without long-term current use of ... Start: 02-18-2025 End: 02-18-2025 Admission to same day surgery center 02/18/2025 10:30 AM EDT - 02/18/2025 12:00 PM EDT Surgery [facility] Radiology [address] [place] [address] [place], [address] [place] [address] INSERTION PORT VENOUS ACCESS ADULT [facility]iology Comment on above: INSERTION PORT VENOUS ACCESS ADULT Start: 02-18-2025 End: 02-18-2025 Insj tunneled ctr vad w/subq port age 5 yr/> INSERTION PORT VENOUS ACCESS ADULT 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) 02/18/2025 10:30 AM EDT ME IR Start: 02-18-2025 Subsequent hospital visit by physician [facility] Comment on above: Malignant neoplasm of head of pancreas ( HCC) [C25.0] Start: 02-16-2025 End: 02-16-2025 Patient encounter procedure 02/16/2025 12:00 PM EDT Office Visit [facility] [address] [place] [address] Cinthia Reno APRN.CARTRIDGE FILLER [address] [place] [address] [facility] 02.14.2025 Admitted for: Acute Pneumonia [facility] Comment on above: Hospital follow up [facility] Admitted for: Acute Pneumonia Start: 02-12-2025 End: 02-12-2025 ambulatory [facility] Laboratory Comment on above: CBC* CBC/QMO GEMZAR ABRAX ANE/D15* D15 GEMZAR ABRAXANE/ LAB EARLY* (SO)CBC* (SO)CBC(PORT) D15 GE MZAR ABRAXANE* (SO)CBC Start: 02-11-2025 End: 02-11-2025 Patient encounter procedure 02/11/2025 12:40 PM EDT Office Visit [facility] [address] [place] [address] Virginia Reina CORPORATE DIRECTOR TALENT ASSESSMENT.CARTRIDGE FILLER [address] [place] [address] . [facility] Comment on above: . Start: 02-08-2025 End: 05-10-2025 PT panel - Platelet poor plasma by Coagulation assay PROTHROMBIN TIME Lab Routine 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) Expected: 02/08/2025, Expires: 05/10/2025 [facility] Work Phone: Comment on above: Expected: 02/08/2025, Expires: Start: 02-08-2025 End: 02-08-2025 Admission to same day surgery center 02/08/2025 12:00 PM EDT - 02/08/2025 1:30 PM EDT Surgery [facility] Radiology [address] [place] [address] [place] [address] [place] [address] INSERTION PORT VENOUS ACCESS ADULT [facility] Comment on above: INSERTION PORT VENOUS ACCESS ADULT Start: 02-08-2025 End: 02-08-2025 Insj tunneled ctr vad w/subq port age 5 yr/> INSERTION PORT VENOUS ACCESS ADULT 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) 02/08/2025 12:00 PM EDT ME IR Start: 02-08-2025 Subsequent hospital visit by physician 02/08/2025 12:00 PM EDT Hospital Encounter [facility] Radiology [address] [facility] [place] [address] [place] [address] [place] [address] 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) [C25.0] [facility] Radiology Comment on above: Malignant neoplasm of head of pancreas ( HCC) [C25.0] Start: 02-05-2025 End: 02-05-2025 ambulatory [facility] Laboratory Comment on above: CBC* CBC/QMO GEMZAR ABRAX AZANE/D8* D8 GEMZAR ABRAXAZANE /LAB EARLY* (SO)CBC* Start: 02-04-2025 End: 02-04-2025 Patient encounter procedure 02/04/2025 11:00 AM EDT Office Visit [facility] SURGERY DEPARTMENT [address] [place] [address] 3[address] Floor [place], [place] [phone] Ayaz Nguyễn MD [address] [place], [place] [phone] [facility] SURGERY DEPARTMENT Comment on above: [facility] Start: 02-03-2025 Hemoglobin A1c measurement HbA1C [facility] Start: 02-03-2025 End: 02-03-2025 Patient encounter procedure 02/03/2025 7:15 AM EDT Office Visit Endocrinology [address] [place] [address] Margaret Macdonald APRN.CARTRIDGE FILLER [address] [place] [address] Type 2 diabetes mellitus with hyperglycemia, with long-term current use of insul... Endocrinology Comment on above: Type 2 diabetes mellitus with hyperglyce keiry, with long-term current use of insul... Start: 02-01-2025 End: 02-01-2025 Patient encounter procedure 02/01/2025 11:00 AM EDT Office Visit Family [facility] [address] [place] [address] Henok Martinez MD [address] [place] [address] Hospital discharge follow up [facility] Comment on above: Hospital discharge follow up Start: 01-28-2025 End: 01-28-2025 ambulatory [place] [facility] Laboratory Comment on above: CBC* CBC/START QMO GEMZAR ABRAXANE/D1/C1/6* (SO)CBC* (SO)CBC/START QMO GE MZAR ABRAXANE/D1/C1/6* Start: 01-27-2025 End: 01-27-2025 ambulatory 01/27/2025 10:30 AM EDT Infusion Center Hematology/Oncology [address] [place] [address] Wstr, 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 Counts Include [address]eds At [facility] [address] [place] [address] CHEMO ED Hematology/Oncology Comment on above: CHEMO ED Start: 01-25-2025 End: 01-25-2025 ambulatory 01/25/2025 8:30 AM EDT Visit (SP) Office Hematology/Oncology [address] [place] [address] Juan Miguel Yusuf MD [address] [place] [address] FIRE OFFICER/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) [C25.0]/IST AVAILABLE OK PER NURSE/ REF BY ASHUTOSH FREEMAN* Hematology/Oncology Comment on above: FIRE OFFICER/Malignant neoplasm of head of pancrea s (HCC) [C25.0]/IST AVAILABLE OK PER NURSE/ REF BY ASHUTOSH FREEMAN* Start: 01-21-2025 End: 01-21-2025 Patient encounter procedure 01/21/2025 10:15 AM EDT Office Visit [facility] Ophthalmology [address] [place] [address] Emma Mcnally, OD [address] [place] [address] diabetic eye exam- has been squinting Ophthalmology Comment on above: diabetic eye exam- has been squinting Start: 01-14-[address] [facility] Start: 01-14-2025 [facility] Start: 01-12-2025 End: 01-12-2025 Patient encounter procedure 01/12/2025 2:00 PM EDT Office Visit [facility] [place] [address] [place] [address] Henok Martinez MD [address] [place] [address] 4 week follow up [facility] [place] Comment on above: 4 week follow up Start: 01-11-2025 Speech therapy assessment [facility] Start: 01-11-2025 [facility] Start: 01-10-2025 Speech therapy assessment [facility] Start: 01-10-2025 Care planning and problem solving actions [facility] Start: 01-10-2025 End: 01-10-2025 [facility] Start: 01-10-2025 Care regimes management [facility] Start: 01-10-2025 Notification of physician [facility] Start: 01-10-2025 Referral to gastroenterology service [facility] Start: 01-10-2025 Application of intermittent pneumatic compression device [facility] Start: 01-10-2025 Assessment of risk of venous thromboembolism [facility] Start: 01-10-2025 Insertion of catheter into peripheral vein [facility] Start: 01-10-2025 Measuring intake and output [facility] Start: 01-10-2025 Providing care according to standard [facility] Start: 01-10-2025 [address]vision [address] privileges [facility] Start: 01-10-2025 Referral to occupational therapist [facility] Start: 01-10-[address] [facility] Start: 01-10-2025 Following clinical pathway protocol [facility] Start: 01-10-[address] [facility] Start: 01-10-[address] [facility] Start: 01-10-2025 Hospital admission, emergency, from emergency room, medical nature [facility] Start: 01-10-2025 Cancer antigen 19-[address] [facility] Start: 01-10-2025 Patient referral to dietitian [facility] Start: 12-25-2024 End: 12-25-2024 Patient encounter procedure 12/25/2024 3:00 PM EST Office Visit [facility] [place] [address] [place], [place] [id number] Henok Martinez MD [address] [place] [address] 4 week follow up [facility] [place] Comment on above: 4 week follow up Start: 12-16-2024 RSV Vaccine (1 - 1-dose 60+ series) RSV Vaccine (1 - 1-dose 60+ series) [facility] Comment on above: Postponed from 2000 (Declined at t his time) Start: 12-16-2024 RSV Vaccine (1 - 1-dose 75+ series) RSV Vaccine (1 - 1-dose 75+ series) [facility] Comment on above: Postponed from 2015 (Declined at t his time) Start: 12-07-2024 End: 12-07-2024 Patient encounter procedure 12/07/2024 2:45 PM EST Office Visit Pulmonary Medicine [address] [place] [address] Nancy Medley MD [address] [place] [id number] 6 month follow up Pulmonary Medicine Comment on above: 6 month follow up Start: 12-02-2024 End: 12-02-2024 Patient encounter procedure 12/02/2024 2:00 PM EST Office Visit Endocrinology [address] [place] [address] Margaret Macdonald APRN.[employer] [address] [place] [address] Type 2 diabetes mellitus without complication, without [...] EST Appointment Radiology [address] [place] [address] Epigastric pain [R10.13]; Elevated lipase [R74.8] Radiology Comment on above: Epigastric pain [R10.13]; Elevated lipas e [R74.8] Start: 11-09-2024 End: 11-09-2024 Patient encounter procedure Radiology Comment on above: Oropharyngeal dysphagia [R13.12] Start: 11-06-2024 End: 02-05-2025 Lipase [Enzymatic activity/volume] in Serum or Plasma LIPASE Lab Routine Epigastric pain Elevated lipase Expected: 11/06/2024, Expires: 02/05/2025 [facility] Work Phone: Comment on above: Expected: 11/06/2024, Expires: Start: 11-04-2024 End: 11-04-2024 Patient encounter procedure 11/04/2024 3:40 PM EST Office Visit Family [facility] [address] [place] [address] Henok Martinez MD [address] [place] [address] 6 month follow up [facility] Comment on above: 6 month follow up Start: 11-04-2024 End: 02-03-2025 CBC W Auto Differential panel - Blood COMPLETE BLOOD COUNT AND DIFFERENTIAL Lab Routine Primary hypertension Expected: 11/04/2024, Expires: 02/03/2025 [facility] Comment on above: Expected: 11/04/2024, Expires: Start: 11-04-2024 End: 02-03-2025 Comprehensive metabolic 2000 panel - Serum or Plasma COMPREHENSIVE METABOLIC PANEL Lab Routine Primary hypertension Expected: 11/04/2024, Expires: 02/03/2025 [facility] Comment on above: Expected: 11/04/2024, Expires: Start: 11-04-2024 End: 02-03-2025 Hemoglobin A1c in Blood HEMOGLOBIN A1C Lab Routine Type 2 diabetes mellitus without complication, without long-term current use of insulin (HCC) Expected: 11/04/2024, Expires: 02/03/2025 [facility] Work Phone: Comment on above: Expected: 11/04/2024, Expires: Start: 11-04-2024 End: 02-03-2025 Lipase [Enzymatic activity/volume] in Serum or Plasma LIPASE Lab Routine Epigastric pain Expected: 11/04/2024, Expires: 02/03/2025 [facility] Comment on above: Expected: 11/04/2024, Expires: Start: 11-04-2024 End: 02-03-2025 Lipid 1996 panel - Serum or Plasma LIPID PANEL BASIC Lab Routine Type 2 diabetes mellitus without complication, without long-term current use of insulin (HCC) Expected: 11/04/2024, Expires: 02/03/2025 [facility] Comment on above: Expected: 11/04/2024, Expires: 5 Start: 11-04-2024 End: 02-03-2025 Microalbumin/Creatinine [Mass Ratio] in Urine ALBUMIN/CREATININE RATIO, URINE Lab Routine Type 2 diabetes mellitus without complication, without long-term current use of insulin (HCC) Expected: 11/04/2024, Expires: 02/03/2025 [facility] Comment on above: Expected: 11/04/2024, Expires: 5 Start: 10-14-2024 End: 11-12-2025 RF videography Hypopharynx and Esophagus Views W liquid and paste contrast PO during swallowing XR MODIFIED BARIUM SWALLOW W SPEECH THERAPY Radiology Routine Oropharyngeal dysphagia Expected: 10/14/2024, Expires: 11/12/2025 [facility] Work Phone: Comment on above: Expected: 10/14/2024, Expires: 6 Start: 09-17-2024 Hepatitis B screening Urine Albumin:Creatinine Ratio [facility] Start: 09-17-2024 Hepatitis B surface antibody level LDL Cholesterol [facility] Start: 09-05-2024 Covid-19 Vaccine ( season) Covid-19 Vaccine ( season) [facility] Comment on above: Postponed from 06/28/2023 (Declined at t his time) Start: 09-05-2024 Hepatitis B Vaccine (1 of 3 - Risk 3-dose series) Hepatitis B Vaccine (1 of 3 - Risk 3-dose series) [facility] Comment on above: Postponed from 2000 (Declined at t his time) Start: 08-01-2024 Hemoglobin A1c measurement HbA1C [facility] Start: 06-28-2024 Influenza vaccination [facility] Start: 06-10-2024 End: 06-10-2024 Patient encounter procedure 06/10/2024 2:00 PM EDT Office Visit Endocrinology [address] [place] [address] Margaret Macdonald, SHY.[employer] [address] [place] [address] Type 2 diabetes mellitus without complication, without long-term current use of insulin (HCC) [E11.9] Endocrinology Comment on above: Type 2 diabetes mellitus without complic ation, without long-term current use of insulin (HCC) [E11.9] Start: 06-06-2024 End: 06-06-2024 Patient encounter procedure 06/06/2024 8:00 AM EDT Appointment Radiology [address] [place] [address] X-ray Radiology Comment on above: X-ray Start: 06-05-2024 End: 06-05-2024 Patient encounter procedure 06/05/2024 11:45 AM EDT Office Visit Pulmonary Medicine [address] [place] [id number] Nancy Medley MD [address] [address] 6 month follow up Pulmonary Medicine Comment on above: 6 month follow up Start: 06-04-2024 Hemoglobin A1c measurement HbA1C [facility] Start: 05-20-2024 3 comp foot exam completed DIABETIC FOOT EXAM [facility] Start: 05-20-2024 COVID-19 VACCINE (3 - Pfizer series) COVID-19 VACCINE (3 - Pfizer series) [facility] Comment on above: Postponed from 04/26/2021 (Declined at t his time) Start: 05-20-2024 Diabetic foot examination Diabetic Foot Exam [facility] Start: 05-20-2024 SHINGRIX VACCINE (1 of 2) SHINGRIX VACCINE (1 of 2) [facility] Comment on above: Postponed from 1990 (Declined at t his time) Start: 05-20-2024 Urine microalbumin profile [facility] Comment on above: Postponed from 1959 (Declined at t his time) Start: 05-04-2024 End: 05-04-2025 CBC W Auto Differential panel - Blood COMPLETE BLOOD COUNT AND DIFFERENTIAL Lab Routine Anemia, unspecified type Expected: 05/04/2024, Expires: 05/04/2025 [facility] Work Phone: Comment on above: Expected: 05/04/2024, Expires: Start: 05-04-2024 End: 05-04-2025 Cobalamin (Vitamin B12) [Mass/volume] in Serum or Plasma VITAMIN B12 Lab Routine Anemia, unspecified type Expected: 05/04/2024, Expires: 05/04/2025 [facility] Comment on above: Expected: 05/04/2024, Expires: Start: 05-04-2024 End: 05-04-2025 Ferritin [Mass/volume] in Serum or Plasma FERRITIN Lab Routine Anemia, unspecified type Expected: 05/04/2024, Expires: 05/04/2025 [facility] Comment on above: Expected: 05/04/2024, Expires: Start: 05-04-2024 End: 05-04-2025 Folate [Mass/volume] in Serum or Plasma FOLATE, SERUM Lab Routine Anemia, unspecified type Expected: 05/04/2024, Expires: 05/04/2025 [facility] Comment on above: Expected: 05/04/2024, Expires: Start: 05-04-2024 End: 05-04-2025 Hemoglobin.gastrointestin al.lower [Presence] in Stool by Immunoassay IMMUNOCHEMICAL FECAL OCCULT BLOOD TEST Lab Routine Anemia, unspecified type Expected: 05/04/2024, Expires: 05/04/2025 [facility] Comment on above: Expected: 05/04/2024, Expires: Start: 05-04-2024 End: 05-04-2025 Iron and Iron binding capacity panel - Serum or Plasma IRON AND TIBC Lab Routine Anemia, unspecified type Expected: 05/04/2024, Expires: 05/04/2025 [facility] Comment on above: Expected: 05/04/2024, Expires: Start: 05-01-2024 End: 05-01-2024 Patient encounter procedure 05/01/2024 4:00 PM EDT Office Visit Family [facility] [address] [place] [address] Henok Martinez MD [address] [place] [address] 4-6 week follow up Family [facility] Comment on above: 4-6 week follow up Start: 05-01-2024 End: 07-31-2024 Hemoglobin A1c in Blood [facility] Work Phone: Comment on above: Expected: 05/01/2024, Expires: 4 Start: 04-28-2024 End: 04-28-2024 Patient encounter procedure 04/28/2024 1:00 PM EDT Office Visit [facility] Ophthalmology [address] [place] [address] Emma Mcnally, OD [address] [place] [address] 10 month follow up-April or May Ophthalmology Comment on above: 10 month follow up-April or May Start: 04-26-2024 Influenza vaccination Influenza Vaccine (#1) [facility] Comment on above: Postponed from 06/28/2023 (Declined at t his time) Start: 04-09-2024 Glaucoma screening Dilated Retinal Exam [facility] Start: 04-09-2024 Hepatitis C antibody, confirmatory test DILATED RETINAL EXAM [facility] Start: 04-06-2024 End: 04-05-2025 XR Chest PA and Lateral XR CHEST 2V FRONTAL/LAT Radiology Routine Abnormal x-ray Expected: 04/06/2024, Expires: 04/05/2025 [facility] Work Phone: Comment on above: Expected: 04/06/2024, Expires: 5 Start: 03-15-2024 End: 06-14-2024 Basic metabolic 2000 panel - Serum or Plasma BASIC METABOLIC PNL Lab Routine Primary hypertension Expected: 03/15/2024, Expires: 06/14/2024 [facility] Work Phone: Comment on above: Expected: 03/15/2024, Expires: 4 Start: 03-15-2024 End: 06-14-2024 CBC W Auto Differential panel - Blood CBC + DIFF Lab Routine Atrial fibrillation, unspecified type (HCC) Expected: 03/15/2024, Expires: 06/14/2024 [facility] Work Phone: Comment on above: Expected: 03/15/2024, Expires: Start: 03-15-2024 End: 06-14-2024 Hemoglobin A1c in Blood HGB A1C Lab Routine Type 2 diabetes mellitus without complication, without long-term current use of insulin (HCC) Expected: 03/15/2024, Expires: 06/14/2024 [facility] Work Phone: Comment on above: Expected: 03/15/2024, Expires: Start: 03-12-2024 Hemoglobin A1c measurement HbA1C [facility] Start: 03-06-2024 End: 03-06-2024 Patient encounter procedure 03/06/2024 2:00 PM EDT Office Visit [facility] [address] [place] [address] Henok Martinez MD [address] [place] [address] 3 month f/u Family Medicine [facility] Comment on above: 3 month f/u Start: 03-05-2024 End: 06-04-2024 Basic metabolic 2000 panel - Serum or Plasma BASIC METABOLIC PANEL Lab Routine Hyperkalemia Expected: 03/05/2024, Expires: 06/04/2024 [facility] Work Phone: Comment on above: Expected: 03/05/2024, Expires: Start: 03-05-2024 End: 06-04-2024 CBC W Auto Differential panel - Blood COMPLETE BLOOD COUNT AND DIFFERENTIAL Lab Routine Leukocytosis, unspecified type Expected: 03/05/2024, Expires: 06/04/2024 [facility] Comment on above: Expected: 03/05/2024, Expires: Start: 03-04-2024 End: 03-04-2024 Patient encounter procedure 03/04/2024 2:20 PM EDT Office Visit [facility] [address] [place] [address] Henok Martinez MD [address] [facility] [place] [id number] [facility] 02-27-2024 discharge Family Medicine [facility] Comment on above: [facility] 02-27-2024 discharge Start: 03-04-2024 End: 06-03-2024 Comprehensive metabolic 2000 panel - Serum or Plasma [facility] Comment on above: Expected: 03/04/2024, Expires: Start: 03-04-2024 End: 06-03-2024 Thyrotropin [Units/volume] in Serum or Plasma [facility] Comment on above: Expected: 03/04/2024, Expires: Start: 02-16-2024 Hepatitis C antibody, confirmatory test DILATED RETINAL EXAM [facility] Start: 01-11-2024 Hepatitis B surface antibody level LDL CHOLESTEROL [facility] Start: 12-19-2023 End: 03-19-2024 Basic metabolic 2000 panel - Serum or Plasma BASIC METABOLIC PNL Lab Routine Type 2 diabetes mellitus without complication, without long-term current use of insulin (HCC) Expected: 12/19/2023, Expires: 03/19/2024 [facility] Work Phone: Comment on above: Expected: 12/19/2023, Expires: Start: 12-19-2023 End: 03-19-2024 Hemoglobin A1c in Blood HGB A1C Lab Routine Type 2 diabetes mellitus without complication, without long-term current use of insulin (HCC) Expected: 12/19/2023, Expires: 03/19/2024 [facility] Work Phone: Comment on above: Expected: 12/19/2023, Expires: Start: 12-18-2023 Hemoglobin A1c/Hemoglobin.total in Blood HbA1C [facility] Start: 10-28-2023 Behavioral Health Screening Behavioral Health Screening [facility] Start: 09-05-2023 End: 12-05-2023 ALBUMIN/CREAT RATIO RND UR ALBUMIN/CREAT RATIO RND UR Lab Routine Type 2 diabetes mellitus without complication, without long-term current use of insulin (HCC) Expected: 09/05/2023, Expires: 12/05/2023 [facility] Work Phone: Comment on above: Expected: 09/05/2023, Expires: Start: 09-05-2023 End: 12-05-2023 CBC W Auto Differential panel - Blood CBC + DIFF Lab Routine 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 Type 2 diabetes mellitus without complication, without long-term current use of insulin (HCC) Expected: 09/05/2023, Expires: 12/05/2023 [facility] Work Phone: Comment on above: Expected: 09/05/2023, Expires: 4 Start: 09-05-2023 End: 12-05-2023 Comprehensive metabolic 2000 panel - Serum or Plasma COMP METABOLIC PANEL Lab Routine Primary hypertension Type 2 diabetes mellitus without complication, without long-term current use of insulin (HCC) Expected: 09/05/2023, Expires: 12/05/2023 [facility] Work Phone: Comment on above: Expected: 09/05/2023, Expires: 4 Start: 09-05-2023 End: 12-05-2023 Hemoglobin A1c in Blood HGB A1C Lab Routine Type 2 diabetes mellitus without complication, without long-term current use of insulin (HCC) Expected: 09/05/2023, Expires: 12/05/2023 [facility] Work Phone: Comment on above: Expected: 09/05/2023, Expires: Start: 09-05-2023 End: 12-05-2023 Lipid 1996 panel - Serum or Plasma LIPID PANEL BASIC Lab Routine Type 2 diabetes mellitus without complication, without long-term current use of insulin (HCC) Expected: 09/05/2023, Expires: 12/05/2023 [facility] Work Phone: Comment on above: Expected: 09/05/2023, Expires: Start: 08-31-2023 Hepatitis B screening URINE ALBUMIN:CREATININE RATIO [facility] Start: 08-31-2023 Hepatitis B surface antibody level LDL CHOLESTEROL [facility] Start: 07-10-2023 Hemoglobin A1c/Hemoglobin.total in Blood HBA1C [facility] Start: 06-28-2023 Covid-19 Vaccine () Covid-19 Vaccine () [facility] Start: 06-28-2023 Influenza vaccination [facility] Start: 04-26-2023 End: 06-26-2023 Hemoglobin A1c in Blood HGB A1C Lab Routine Type 2 diabetes mellitus without complication, without long-term current use of insulin (HCC) Expected: 04/26/2023, Expires: 06/26/2023 [facility] Work Phone: Comment on above: Expected: 04/26/2023, Expires: Start: 04-26-2023 Influenza vaccination INFLUENZA (#1) [facility] Comment on above: Postponed from 06/28/2022 (Declined at t his time) Start: 04-12-2023 Hemoglobin A1c/Hemoglobin.total in Blood HBA1C [facility] Start: 04-01-2023 End: 06-01-2023 Basic metabolic 2000 panel - Serum or Plasma BASIC METABOLIC PNL Lab Routine Primary hypertension Expected: 04/01/2023, Expires: 06/01/2023 [facility] Work Phone: Comment on above: Expected: 04/01/2023, Expires: 3 Start: 04-01-2023 End: 06-01-2023 Hemoglobin A1c in Blood HGB A1C Lab Routine Type 2 diabetes mellitus without complication, without long-term current use of insulin (HCC) Expected: 04/01/2023, Expires: 06/01/2023 [facility] Work Phone: Comment on above: Expected: 04/01/2023, Expires: 3 Start: 03-31-2023 [facility] Start: 03-30-2023 [facility] Start: 02-28-2023 Hemoglobin A1c/Hemoglobin.total in Blood HBA1C [facility] Start: 12-02-2022 End: 02-01-2023 Comprehensive metabolic 2000 panel - Serum or Plasma COMP METABOLIC PANEL Lab Routine Type 2 diabetes mellitus without complication, without long-term current use of insulin (HCC) Expected: 12/02/2022, Expires: 02/01/2023 [facility] Work Phone: Comment on above: Expected: 12/02/2022, Expires: 3 Start: 12-02-2022 End: 02-01-2023 Hemoglobin A1c in Blood HGB A1C Lab Routine Type 2 diabetes mellitus without complication, without long-term current use of insulin (HCC) Expected: 12/02/2022, Expires: 02/01/2023 [facility] Work Phone: Comment on above: Expected: 12/02/2022, Expires: 3 Start: 12-02-2022 End: 02-01-2023 Lipid 1996 panel - Serum or Plasma LIPID PANEL BASIC Lab Routine Type 2 diabetes mellitus without complication, without long-term current use of insulin (HCC) Expected: 12/02/2022, Expires: 02/01/2023 [facility] Work Phone: Comment on above: Expected: 12/02/2022, Expires: 3 Start: 10-28-2022 ADVANCE DIRECTIVE DISCUSSION ADVANCE DIRECTIVE DISCUSSION [facility] Start: 10-28-2022 DEPRESSION ASSESSMENT DEPRESSION ASSESSMENT [facility] Start: 09-25-2022 Hepatitis B screening URINE ALBUMIN:CREATININE RATIO [facility] Start: 09-25-2022 Hepatitis B surface antibody level LDL CHOLESTEROL [facility] Start: 06-28-2022 Influenza vaccination [facility] Start: 04-30-2022 End: 06-30-2022 Hemoglobin A1c/Hemoglobin.total in Blood HGB A1C Lab Routine Type 2 diabetes mellitus without complication, without long-term current use of insulin (HCC) Expected: 04/30/2022, Expires: 06/30/2022 [facility] Work Phone: Comment on above: Expected: 04/30/2022, Expires: 2 Start: 04-27-2022 Hemoglobin A1c/Hemoglobin.total in Blood HBA1C [facility] Start: 01-26-2022 End: 03-28-2022 Hemoglobin A1c/Hemoglobin.total in Blood [facility] Work Phone: Comment on above: Expected: 01/26/2022, Expires: 2 Start: 12-25-2021 Hemoglobin A1c/Hemoglobin.total in Blood HBA1C [facility] Start: 10-28-2021 ADVANCE DIRECTIVE DISCUSSION ADVANCE DIRECTIVE DISCUSSION [facility] Start: 10-28-2021 DEPRESSION ASSESSMENT DEPRESSION ASSESSMENT [facility] Start: 08-01-2021 COVID-19 VACCINE (3 - Booster for Pfizer series) COVID-19 VACCINE (3 - Booster for Pfizer series) [facility] Start: 04-26-2021 COVID-19 VACCINE (3 - Booster for Pfizer series) COVID-19 VACCINE (3 - Booster for Pfizer series) [facility] Start: 2015 RSV Vaccine (1 - 1-dose 75+ series) RSV Vaccine (1 - 1-dose 75+ series) [facility] Start: 2005 BONE DENSITY BONE DENSITY [facility] Start: 2005 PNEUMOVAX AGE 65 AND OVER WITH 5YR LOOKBACK (#1) PNEUMOVAX AGE 65 AND OVER WITH 5YR LOOKBACK (#1) [facility] Start: 05-28-2005 Medicare Annual Wellness Visit Medicare Annual Wellness Visit [facility] Start: 2000 Hepatitis B Vaccine (1 of 3 - Risk 3-dose series) Hepatitis B Vaccine (1 of 3 - Risk 3-dose series) [facility] Start: 2000 RSV Vaccine (1 - 1-dose 60+ series) RSV Vaccine (1 - 1-dose 60+ series) [facility] Start: 1990 SHINGRIX VACCINE (1 of 2) SHINGRIX VACCINE (1 of 2) [facility] Start: 1959 Urine microalbumin profile [facility] Start: 1958 SPIROMETRY SPIROMETRY [facility] Start: 1951 Screening for malignant neoplasm of cervix Cervical Cancer Screening [facility] Start: 1950 3 comp foot exam completed DIABETIC FOOT EXAM [facility] Start: 1950 Hepatitis C antibody, confirmatory test DILATED RETINAL EXAM [facility] Start: 1946 PNEUMOCOCCAL: 65+ (1 - PCV) PNEUMOCOCCAL: 65+ (1 - PCV) [facility] Cancer antigen 19-[address] [facility] Catheterization of l eft heart [facility] End: 01-25-2026 CBC W Auto Differential panel - Blood COMPLETE BLOOD COUNT AND DIFFERENTIAL Lab Routine 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) Once per week for 26 Occurrences starting 01/25/2025 until 01/25/2026, 1 completed [facility] Work Phone: Comment on above: Once per week for 26 Occurrences startin g 01/25/2025 until 01/25/2026, 1 completed End: 09-05-2023 COLONOSCOPY DIAGNOSTIC COLONOSCOPY DIAGNOSTIC Endoscopy Routine Change in bowel habits 1 Occurrences starting 09/05/2022 until 09/05/2023 [facility] Work Phone: Comment on above: 1 Occurrences starting 09/05/2022 until 09/05/2023 End: 01-25-2026 Comprehensive metabolic 2000 panel - Serum or Plasma COMPREHENSIVE METABOLIC PANEL Lab Routine 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) Once per week for 26 Occurrences starting 01/25/2025 until 01/25/2026, 1 completed [facility] Comment on above: Once per week for 26 Occurrences startin g 01/25/2025 until 01/25/2026, 1 completed End: 06-24-2026 CT Abdomen and Pelvis W contrast IV CT ABD/PEL W IVCON Radiology Routine 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) Adenocarcinoma of head of pancreas (HCC) 1 Occurrences starting 05/25/2025 until 06/24/2026 [facility] Work Phone: Comment on above: 1 Occurrences starting 05/25/2025 until 06/24/2026 CT Abdomen and Pelvi s W contrast IV CT ABD/PEL W IVCON Radiology Routine 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) Adenocarcinoma of head of pancreas (HCC) 05/26/2025 3:04 PM EDT [facility] Work Phone: End: 06-24-2026 CT Chest W contrast IV CT CHEST W IVCON Radiology Routine 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) Adenocarcinoma of head of pancreas (HCC) 1 Occurrences starting 05/25/2025 until 06/24/2026 [facility] Comment on above: 1 Occurrences starting 05/25/2025 until 06/24/2026 CT Chest W contrast IV CT CHEST W IVCON Radiology Routine 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) Adenocarcinoma of head of pancreas (HCC) 05/26/2025 3:04 PM EDT [facility] End: 03-09-2024 Ct pelvis w/contrast material CT PELVIS W IVCON Radiology Routine Pelvic and perineal pain 1 Occurrences starting 02/08/2023 until 03/09/2024 [facility] Work Phone: Comment on above: 1 Occurrences starting 02/08/2023 until 03/09/2024 End: 12-16-2023 Ct thorax w/o contrast material CT CHEST WO IVCON Radiology Routine Chronic cough Abnormal chest x-ray 1 Occurrences starting 11/16/2022 until 12/16/2023 [facility] Work Phone: Comment on above: 1 Occurrences starting 11/16/2022 until 12/16/2023 End: 04-06-2026 ERCP ERCP Endoscopy Routine RUQ pain 1 Occurrences starting 04/06/2025 until 04/06/2026 [facility] Work Phone: Comment on above: 1 Occurrences starting 04/06/2025 until 04/06/2026 Insj tunneled ctr va d w/subq port age 5 yr/> INSERTION PORT VENOUS ACCESS ADULT 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) ME IR End: 10-31-2023 LUNG DIFFUSION CAPACITY (DLCO) LUNG DIFFUSION CAPACITY (DLCO) PFT Routine Mild intermittent asthma without complication 1 Occurrences starting 10/01/2022 until 10/31/2023 [facility] Work Phone: Comment on above: 1 Occurrences starting 10/01/2022 until 10/31/2023 End: 10-31-2023 LUNG VOLUMES LUNG VOLUMES PFT Routine Mild intermittent asthma without complication 1 Occurrences starting 10/01/2022 until 10/31/2023 [facility] Work Phone: Comment on above: 1 Occurrences starting 10/01/2022 until 10/31/2023 Magnesium measurement [facility] Patient Education [facility] Work Phone: Patient referral [facility] Work Phone: End: 10-31-2023 SPIROMETRY - BASELINE AND POST DILATOR SPIROMETRY - BASELINE AND POST DILATOR PFT Routine Mild intermittent asthma without complication 1 Occurrences starting 10/01/2022 until 10/31/2023 [facility] Work Phone: Comment on above: 1 Occurrences starting 10/01/2022 until 10/31/2023 Stroke after atrial fibrillation 5 year risk [#] [place] 2002 IR PORTOCATH PLACEMENT Radiology Routine 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) Ordered: 01/28/2025 [facility] Work Phone: Comment on above: Ordered: 01/28/2025 End: 12-04-2025 US Abdomen RUQ US ABD RIGHT UPPER QUADRANT Radiology Routine Epigastric pain 1 Occurrences starting 11/04/2024 until 12/04/2025 [facility] Comment on above: 1 Occurrences starting 11/04/2024 until 12/04/2025 US Abdomen RUQ US ABD RIGHT UPP ER QUADRANT Radiology Routine Epigastric pain Elevated lipase 11/12/2024 2:54 PM EST [facility] Work Phone: [facility] End: 04-03-2025 XR Chest PA and Lateral XR CHEST 2V FRONTAL/LAT Radiology Routine Bronchitis 1 Occurrences starting 03/04/2024 until 04/03/2025 [facility] Work Phone: Comment on above: 1 Occurrences starting 03/04/2024 until 04/03/2025 XR Chest PA and Lateral XR CHEST 2V FRONTAL/LAT Radiology Routine Bronchitis 03/04/2024 3:46 PM EDT [facility] End: 12-04-2025 XR Chest PA and Lateral XR CHEST 2V FRONTAL/LAT Radiology Routine Hemoptysis 1 Occurrences starting 11/04/2024 until 12/04/2025 [facility] Comment on above: 1 Occurrences starting 11/04/2024 until 12/04/2025 End: 07-05-2025 XR Ribs - right Views and Chest PA XR RIBS/CHEST 3V AP RIB/OBLS/CXR RIGHT Radiology Routine Rib pain on right side 1 Occurrences starting 06/05/2024 until 07/05/2025 [facility] Work Phone: Comment on above: 1 Occurrences starting 06/05/2024 until 07/05/2025 [facility] Immunizations Immunization Date Immunization Notes Care Provider Fa cili 03-01-2021 COVID-19 vaccine, ag e 12+ yr (PFIZER-BIONTECH - PURPLE TOP) Henok Martinez MD Work Phone: [facility] 02-08-2021 COVID-19 vaccine, ag e 12+ yr (PFIZER-BIONTECH - PURPLE TOP) Henok Martinez MD Work Phone: [facility] Payers Date Payer Category Payer Medicare [id number] 2024 Self-pay [id number] 2023 Medicaid [id number] 2023 Self-pay [id number] 2021 Medicaid [place] [id number] 2021-Present [phone] [address] [place] [address] Medicaid [id number] 2021 Medicaid [id number] 2005 Medicare MEDICARE MEDICAR E A AND B [id number] 2005-Present [phone] [address] [address] [place] [address] Medicare [id number] 2005 Medicare [id number] 2005 Medicare [id number] Unknown [id number] Unknown [id number] Unknown [id number] Unknown [id number] Unknown [id number] Unknown [id number] Unknown [id number] Unknown [id number] Unknown [id number] Unknown [id number] Unknown [id number] Unknown [id number] Unknown [id number] Social History Date Type Detail Facility Start: 09-14-2021 End: 11-16-2022 Tobacco smoking status NHIS Ex-smoker [facility] Start: 09-14-2021 End: 11-16-2022 Tobacco use and exposure Smokeless tobacco non-user [facility] Start: 01-26-2022 End: 05-25-2025 Alcohol intake Ex-drinker (finding) [facility] Start: 1940 Sex Assigned At Not on file [facility] Start: 01-16-2022 End: 10-01-2022 Exposure to SARS-CoV-2 (event) Not sure [facility] History of tobacco use Current smoker [facility] Start: 11-16-2022 Tobacco Comment Light smoker f or 7 years in early adulthood [facility] Start: 03-07-2023 End: 02-25-2024 Tobacco smoking status NHIS Unknown if ever smoked [facility] Start: 1940 Sex Assigned At Female W [facility] Start: 04-09-2023 End: 06-25-2023 History of Social function [facility] Work Phone: Start: 04-09-2023 End: 06-25-2023 Tobacco use panel [facility] Work Phone: Adult Depression Screening Assessment 0 [facility] Work Phone: Has the [employer] or [employer] threatened to shut off services in your home in past 12Mo No [facility] Work Phone: (I/We) worried wheth er (my/our) food would run out before (I/we) got money to buy more. Never true [facility] Start: 01-10-2025 End: 01-14-2025 Sex Female (finding) [facility] NEGATED: Highlighted row Not [facility] Medical Equipment Procedure Code Equipment Code Equipment Origin al Text Equipment Identifier Dates Stent Advanix Na viflex 10fr [place] Thin Wall Plastic 7cm Biliary - [id number] Start: 01-15-2025 [id number] Start: 01-23-2025 End: 02-22-2025 Use with blood g lucose test 2 times daily. Insulin Dep? Yes [id number] Start: 01-23-2025 Test 4 times zenia ly, Insulin Dep? Yes dm 2 uncontrolled. [id number] Start: 01-29-2025 Test Four times a day. Insulin Dep? Yes uncontrolled dm [id number] Start: 01-29-2025 1 each two times a day. [id number] Start: 03-18-2025 End: 04-17-2025 Goals Date Patient Goal Desired Activity /State Functional Status Date Assessment Result Facility 02-14-2025 Are you deaf, or do you have serious difficulty hearing No 02/14/2025 2:14 PM Gloria Nolasco RN No [facility] 02-14-2025 Are you blind, or do you have serious difficulty seeing, even when wearing glasses No 02/14/2025 2:14 PM Gloria Nolasco RN No [facility] 02-14-2025 Do you have serious difficulty walking or climbing stairs Yes 02/14/2025 2:14 PM Gloria Nolasco RN Yes [facility] 02-14-2025 Do you have difficul ty dressing or bathing Yes 02/14/2025 2:14 PM Gloria Nolasco RN Yes [facility] 02-14-2025 Because of a physica l, mental, or emotional condition, do you have difficulty doing errands alone such as visiting a physician's office or shopping Yes 02/14/2025 2:14 PM Gloria Nolasco RN Yes [facility] 01-23-2025 Are you deaf, or do you have serious difficulty hearing No 01/23/2025 2:02 PM Nadeen Hoang RN No [facility] 01-23-2025 Are you blind, or do you have serious difficulty seeing, even when wearing glasses No 01/23/2025 2:02 PM Nadeen Hoang RN No [facility] 01-23-2025 Do you have serious difficulty walking or climbing stairs No 01/23/2025 2:02 PM Nadeen Hoang RN No [facility] 01-23-2025 Do you have difficul ty dressing or bathing No 01/23/2025 2:02 PM Nadeen Hoang RN No [facility] 01-23-2025 Because of a physica l, mental, or emotional condition, do you have difficulty doing errands alone such as visiting a physician's office or shopping No 01/23/2025 2:02 PM Nadeen Hoang RN No [facility] 01-14-2025 Functional status Ambulates;Up ad tia Chaudhry [facility] Work Phone: Mental Status Date Assessment Result Facility 02-14-2025 Because of a physica l, mental, or emotional condition, do you have serious difficulty concentrating, remembering, or making decisions No 02/14/2025 2:14 PM EDT Gloria Last, MAGNUS No [facility] 01-23-2025 Because of a physica l, mental, or emotional condition, do you have serious difficulty concentrating, remembering, or making decisions No 01/23/2025 2:02 PM EDT Nadeen Decker, MAGNUS No [facility] 01-14-2025 Cognitive function Voice/Name [facility] Work Phone: 01-09-2025 Cognitive function Level Of Cons ciousness Awake;Alert;Appropriate;Fol lows Commands [facility] Work Phone: 02-25-2024 Cognitive function Level Of Cons ciousness Awake;Alert;Appropriate;Fol lows Commands [facility] Work Phone: 04-22-2023 Cognitive function Level Of Cons ciousness Awake;Alert;Appropriate [facility] Work Phone: 04-05-2023 Cognitive function Level Of Cons ciousness Awake;Alert;Appropriate;Fol lows Commands [facility] Work Phone: 03-30-2023 Cognitive function Level Of Cons ciousness Awake;Alert;Appropriate;Fol lows Commands;Responds to vocal stimuli [facility] Work Phone: Clinical Notes 03-28-2021 [...] PATIENT PRESENTS WITH AN IMPLANTABLE OR ATTACHED CERTIFIED TRAVEL COUNSELOR: No ALLERGIES: Reviewed and unchanged CONTRAST ALLERGY: [...] TIME: 3:36 PM documented in this encounter [facility] 05-26-2025 Note HNO ID: [id number] Author: BOBO PARHAM RT(R) Service: ? Author Type: Special Events Assistant Type: Progress Notes Filed: 05/26/2025 15:37 Note [...] PATIENT PRESENTS WITH AN IMPLANTABLE OR ATTACHED CERTIFIED TRAVEL COUNSELOR: No ALLERGIES: Reviewed and unchanged CONTRAST ALLERGY: [...] DATE: May 26, 2025 TIME: 3:36 PM [facility] 05-26-2025 Note HNO ID: [id number] Author: SKYLER BHATIA MA Service: ? Author Type: Car Rental Manager Type: Progress Notes Filed: 05/26/2025 09:04 Note [...] Bhatia MA May 26, 2025 7:56 AM [facility] 05-26-2025 History of Presen t illness [...] or unnecessary to reach patient: Left message WappZapphart message sent Navigation Signature: Skyler Bhatia MA May 26, 2025 7:56 AM documented in this encounter [facility] 05-26-2025 Note Patient Outreach (NE TNAV) TELMA TINEO ([id number]) 1940 F Date Time Provider Department 05/26/25 SKYLER BHATIA NETADRIANNAV During your visit today, we recorded the following information about you: Skyler Bhatia MA 05/26/2025 9:04 AM Signed POPULATION HEALTH NAVIGATION OUTREACH Action/FYI LVM T-PRO SolutionsHART MESSAGE SENT Topic Due (Y or N) Comments Medicare Wellness y PCP Follow up Colorectal Cancer Screening Controlling Blood Pressure A1C y HCC Flu Vaccine Care Everywhere Reviewed MyChart Activation Updated Appointment Note Reason for Outreach Care Gap/HCC or Scheduling Wellness Visits Care Gaps due: Medicare Annual Wellness Visit Patient Contacted: Unable or unnecessary to reach patient: Left message WappZapphart message sent Navigation Signature: Skyler Bhatia MA [...] - Blood-Glucose Meter,Continuous (FREESTYLE TOLU 3 READER) [facility] Use to check blood sugar at least [...] once daily. - Blood Pressure Test Kit-Large (Pivot ARM BP MONITOR) 1 Each once daily. 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 [facility] 05-25-2025 Telephone encounter Note Returned pt daughter call, who was returning my call from earlier today. [facility] 05-25-2025 Miscellaneous Notes Returned pt daughter call, who was returning my call from earlier today. Emilia iDaz, I am seeing this patient she has [...] but she cancelled because she was in [place]. LM to call me back. documented in this encounter [facility] 05-25-2025 Telephone encounter Note Emilia Diaz, I [...] but she cancelled because she was in [place]. LM to call me back. [facility] 05-25-2025 Note HNO ID: [id number] Author: JUAN MIGUEL YUSUF MD Service: ? [...] presented with painless jaundice, admitted initially at [facility], transferred for further work up at [facility]. Saw hepatobiliary surgery there, noted pancreatic mass. [...] Yes Blood-Glucose Meter,Continuous (FREESTYLE TOLU 3 READER) [facility] Use to check blood sugar at least four (more content not included)... [facility] 05-25-2025 History of Presen t illness Narrative (Elements copied from my note dated February 22, 2025, have been reviewed and updated where appropriate, and all reflect current assessment and medical decision making from today's encounter, May 25, 2025) HISTORY OF PRESENT ILLNESS: Telma Tineo is a 84 year old female presented with painless jaundice, admitted initially at [facility], transferred for further work up at [facility]. Saw hepatobiliary surgery there, noted pancreatic mass. [...] mg by mouth once daily. Blood-Glucose Sensor (LT TechnologiesSTYLE TOLU 3 PLUS SENSOR) benjamin Apply new [...] Yes Blood-Glucose Meter,Continuous (FREESTYLE TOLU 3 READER) [facility] Use to check blood sugar at least [...] which included preparing to see the patient, [id number] patient care, completing clinical documentation, obtaining and/or reviewing separately obtained history, counseling and educating the patient/family/caregiver, ordering medications, tests, or procedures, communicating with other HCPs (not separately reported), independently interpreting results (not separately reported), communicating results to the patient/family/caregiver, and care coordination (not separately reported). Electronically Signed: Juan Miguel Yusuf MD May 25, 2025 documented in this encounter [facility] 05-20-2025 Telephone encounter Note Spoke w pt daughter and she is scheduled for 05/[address] Yusuf. Will schedule w Dr. Stoner when she is here. Nasim Fragoso [facility] 05-20-2025 Miscellaneous Notes Spoke w pt daughter [...] reschedule with Dr. Diaz in GI at [place]? Please call Sujata or Timothy to schedule. Elaina Silverio RN documented in this encounter [facility] 05-13-2025 Telephone encounter Note Call Sujata Aguirre [...] reschedule with Dr. Diaz in GI at [place]? Please call Sujata Aguirre to schedule. Elaina Silverio RN [facility] Work Phone: 04-22-2025 Telephone encounter Note Removed [...] Ríos RN April 22, 2025 7:57 PM [facility] 04-22-2025 Miscellaneous Notes Removed Lipitor as it [...] 2025 7:57 PM documented in this encounter [facility] 04-19-2025 Telephone encounter Note The following approved medication requests have been transmitted electronically. Requested Prescriptions Pending Prescriptions Disp Refills sucralfate (CARAFATE) 1 gram tablet 120 tablet 1 Sig: Take 1 tablet by mouth four times daily. Virginia Reina APRN.CNP [facility] 04-19-2025 Miscellaneous Notes The following approved medication requests have been transmitted electronically. Requested Prescriptions Pending Prescriptions Disp Refills sucralfate (CARAFATE) 1 gram tablet 120 tablet 1 Sig: Take 1 tablet by mouth four times daily. Virginia Reian APRN.CNP Prescription Refill Information The patient has [...] for Tolu sensors was sent to [facility] on 04/12/25. Pt is not due for refill. Jose Ortiz LPN April 19, 2025 5:39 PM documented in this encounter [facility] 04-19-2025 Telephone encounter Note Prescription Refill Information [...] for Tolu sensors was sent to [facility] on 04/12/25. Pt is not due for refill. Jose Ortiz LPN April 19, 2025 5:39 PM T [facility] 04-12-2025 Telephone encounter Note Son reports pt is still in [place] and is staying longer than first thought. [...] LPN April 12, 2025 2:54 PM T [facility] 04-12-2025 Miscellaneous Notes Son reports pt is still in [place] and is staying longer than first thought. [...] 2025 2:54 PM documented in this encounter [facility] 04-08-2025 Telephone encounter Note Thank you, patient has cancelled all of her chemotherapy treatments. Elaina Silverio RN [facility] Work Phone: 04-08-2025 Miscellaneous Notes Thank you, [...] you were aware. documented in this encounter [facility] 04-08-2025 Telephone encounter Note FYI- Patient is scheduled for consult with Dr Stoner on 04/19/25 for palliative radiation. Patient will be out of the country 04[place]11[place]04[place]. Patient is also scheduled for another ERCP 04/20. She saw Dr Nguyễn on 04/06 and is not a surgical candidate. I just wanted to make sure that you were aware. [facility] 04-06-2025 Telephone encounter Note Hey! This lady [...] and current Scheduled ERCP for 04/20/25 8am. [facility] 04-06-2025 Miscellaneous Notes Hey! This lady has [...] for 04/20/25 8am. documented in this encounter [facility] 04-06-2025 History of Presen t illness Narrative Images from the original note were not included. Ayaz Nguyễn MD Surgical Oncology [address] [facility], [address] [place] [id number] Name: Telma Tineo Age: [age] year old [...] MD 1528 04/06/2025 documented in this encounter [facility] 04-06-2025 Note [facility] 04-01-2025 Note HNO ID: [id number] Author: SKYLER BHATIA MA Service: ? Author Type: Car Rental Manager Type: Progress Notes Filed: 04/01/2025 15:58 Note Text: Opened in error [facility] 04-01-2025 History of Presen t illness Narrative Opened in error documented in this encounter [facility] 03-30-2025 Instructions Henok Martinez MD - 03/30/2025 [...] about one month after you return from [place]. Call our office when you re back [...] at this time. documented in this encounter [facility] 03-30-2025 Note HNO ID: [id number] Author: HENOK MARTINEZ MD Service: ? Author [...] sugar. Blood-Glucose Meter,Continuous (FREESTYLE TOLU 3 READER) [facility] Use to check blood sugar at least [...] mouth once daily. Blood Pressure Test Kit-Large (Pivot ARM BP MONITOR) 1 Each once daily. [...] fever, (-) chi (more content not included)... [facility] 03-30-2025 History of Presen t illness [...] surgery over three months ago by Dr. Mgcraw. Diabetes: - Blood glucose levels are reportedly [...] mouth once daily. Blood Pressure Test Kit-Large (Pivot ARM BP MONITOR) 1 Each once daily. [...] as hospice. - She is going to [place] to visit relatives. 8. intermediate current use of anticoagulant therapy (Z79.01) - [...] patient) Henok Martinez MD Recording using ambient [employer] software for draft documentation of the visit was discussed with the patient/authorized operations representative; all questions welcomed and answered. Patient/authorized operations representative agreed to proceed documented in this encounter [facility] 03-18-2025 Note HNO ID: [id number] Author: JUAN ERNANDEZ RT(R) Service: ? Author Type: Special Events Assistant Type: Progress Notes Filed: 03/18/2025 13:48 Note [...] PATIENT PRESENTS WITH AN IMPLANTABLE OR ATTACHED CERTIFIED TRAVEL COUNSELOR: No RADIOLOGY DEPARTMENT: General X-ray: Exam(s) Completed: Chest X-Ray PERIPHERAL IV DATA: Not applicable SIGNED BY: RT Gavin(R) March 18, 2025 1:41 PM [facility] 03-15-2025 Telephone encounter Note All appointments here have been canceled Mame Barreto [facility] 03-15-2025 Miscellaneous Notes All appointments here have [...] [facility] or for labs. She is now considering not pursuing chemotherapy treatment. She returned from out of state last night and she is leaving for [place] 03/18 to say goodbyes to her family. Son thinks she may end up staying in [place] but is not sure. documented in this encounter [facility] 03-15-2025 Telephone encounter Note PSS: please cancel all upcoming appointments with our office. Elaina Silverio RN [facility] Work Phone: 03-15-2025 Telephone encounter Note Received a call back from Timothy. Patient would like to put further treatments on hold. Timothy will keep us updated and call back if/when she is ready to have follow up and/or restart treatments. This nurse will make a reminder to check in with Timothy in a month if no return call by then. Elaina Silverio RN [facility] 03-15-2025 Telephone encounter Note Call to Timothy to clarify if we needed to cancel treatment also this week. No answer, left VM for him to call the office back. Elaina Silverio RN [facility] 03-15-2025 Telephone encounter Note Spoke with Telma's son, Timothy, over the phone. He forgot about Telma's appointment and states she is not coming in for her office visit with Basil PALM today or for labs. She is now considering not pursuing chemotherapy treatment. She returned from out of state last night and she is leaving for [place] 03/18 to say goodbyes to her family. Son thinks she may end up staying in [place] but is not sure. [facility] 03-10-2025 Note HNO ID: [id number] Author: SAFIA HENLEY RN Service: ? 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 - Blood Pressure Test Kit-Large (Pivot ARM BP MONITOR) 1 Each once daily. [...] 05/20/2023 Impaired cognition [R41.89] 05/20/2023 Diagnosed: 05/20/2023 intermediate current use of anticoagulant therapy *05/20/2023 Diagnosed: [...] Encounter Status:Closed by SAFIA HENLEY on 03/10/25 [facility] 03-08-2025 Telephone encounter Note Rx sent [facility] 03-08-2025 Miscellaneous Notes Rx sent Patient's son calling and is asking if patient needs to continue taking sucralfate. Patient had ulcer while she was in hospital. Son asking if patient needs to continue this medication? If patient is to continue medication new prescription with refills need to be sent to [facility]. The patient has been identified by name [...] 2025 2:21 PM documented in this encounter [facility] 03-08-2025 Telephone encounter Note Patient's son calling and is asking if patient needs to continue taking sucralfate. Patient had ulcer while she was in hospital. Son asking if patient needs to continue this medication? If patient is to continue medication new prescription with refills need to be sent to [facility]. The patient has been identified by [...] Marcelo RN March 08, 2025 2:21 PM [facility] 03-03-2025 Telephone encounter Note Tejas stated that she was going to come in soon for the x-ray and then based on those results she will schedule for port placement if the x-ray looks clear Mame Barreto [facility] 03-03-2025 Miscellaneous Notes Tejas stated that she [...] to Timothy, aware ok for travel to [place]. He states she is planning to be out of town for a week. 03/05 to 03/12. Appointments will need to be rescheduled. Elaina Silverio RN Images from the original note were not included. Timothy called asking if okay for patient to travel to [place] within the next few days by car. Please call him and advise. documented in this encounter [facility] 03-03-2025 Telephone encounter Note I called and [...] chest x-ray looks good Mame Diaz Pss [facility] 03-03-2025 Telephone encounter Note PSS: please move out appointments 03/09 and 03/10 out a week and adjust schedule. please call Timothy with new date/times. Elaina Silverio RN [facility] Work Phone: 03-03-2025 Telephone encounter Note Call to Timothy, aware ok for travel to [place]. He states she is planning to be out of town for a week. 03/05 to 03/12. Appointments will need to be rescheduled. Elaina Silverio RN [facility] 03-03-2025 Telephone encounter Note Images from the original note were not included. [facility] 03-02-2025 Telephone encounter Note Timothy called asking if okay for patient to travel to [place] within the next few days by car. Please call him and advise. [facility] Work Phone: 02-24-2025 Instructions Henok Martinez MD - 02/24/2025 11:35 AM EDT Let me know how sugars are on in Saturday. documented in this encounter [facility] 02-24-2025 Note HNO ID: [id number] Author: HENOK MARTINEZ MD Service: ? Author Type: Physician Type: Progress Notes Filed: 02/24/2025 11:45 Note Text: No chief complaint on file. HPI: Patient presents today for office visit for hospital follow up. HOSPITAL/ER FOLLOW UP: Reason for visit: pneumonia Which facility: [facility] Date of visit: 02/11/25-02/14/25 Diagnosis: acute [...] sugar. Blood-Glucose Meter,Continuous (FREESTYLE TOLU 3 READER) [facility] Use to check blood sugar at least [...] mouth once daily. Blood Pressure Test Kit-Large (Pivot ARM BP MONITOR) 1 Each once daily. [...] Father No Kno (more content not included)... [facility] 02-24-2025 History of Presen t illness Narrative No chief complaint on file. HPI: Patient presents today for office visit for hospital follow up. HOSPITAL/ER FOLLOW UP: Reason for visit: pneumonia Which facility: [facility] Date of visit: 02/11/25-02/14/25 Diagnosis: acute [...] sugar. Blood-Glucose Meter,Continuous (FREESTYLE TOLU 3 READER) [facility] Use to check blood sugar at least [...] mouth once daily. Blood Pressure Test Kit-Large (Pivot ARM BP MONITOR) 1 Each once daily. [...] Henok Martinez MD documented in this encounter [facility] 02-24-2025 Telephone encounter Note This will be addressed with provider today at visit. [facility] 02-24-2025 Miscellaneous Notes This will be addressed [...] (Patient will only see MD's/DO's and not FIRE OFFICER's and first available Hospital D/C w/ Dr. Martinez is almost 3 weeks post-discharge.) Please advise. Nat Solis documented in this encounter [facility] 02-23-2025 Telephone encounter Note Most of the cough meds are now otc. Would start with delsym otc [facility] 02-23-2025 Telephone encounter Note Spoke with patient's son and rescheduled with Dr. Becker as patient will only see MD's/DO's and not FIRE OFFICER's. Nat Solis [facility] 02-23-2025 Miscellaneous Notes Spoke with patient's son and rescheduled with Dr. Becker as patient will only see MD's/DO's and not FIRE OFFICER's. Nat Solis Pt was scheduled for 20min 4c Est continued cough follow up. On 02/24/25. Pt was actually admitted to [facility] 02/10/25 and dc'd on 02/14/25 with a diagnosis of pneumonia and RSV. Pt needs rescheduled for a 4c Est Hosp/ER follow up. Jose Ortiz LPN documented in this encounter [facility] 02-23-2025 Telephone encounter Note Spoke with patient's son to reschedule the an appointment. Patient's son is asking if Dr. Martinez can prescribe some cough medicine as the patient's cough is not going away/stopping. Patient is seeing Dr. Becker tomorrow for Hospital Discharge Follow up (Patient will only see MD's/DO's and not FIRE OFFICER's and first available Hospital D/C w/ Dr. Martinez is almost 3 weeks post-discharge.) Please advise. Nat Solis [facility] 02-23-2025 Telephone encounter Note Pt was scheduled for 20min 4c Est continued cough follow up. On 02/24/25. Pt was actually admitted to [facility] 02/10/25 and dc'd on 02/14/25 with a diagnosis of pneumonia and RSV. Pt needs rescheduled for a 4c Est Hosp/ER follow up. Jose Ortiz LPN [facility] 02-23-2025 Telephone encounter Note Son called and confirmed 5/13 and 5/14 [facility] Work Phone: 02-23-2025 Miscellaneous Notes Son called [...] Elaina Silverio, MAGNUS documented in this encounter [facility] 02-23-2025 Telephone encounter Note Schedule updated Message left for patient to contact office to confirm 5/13 lab and office visit, treatment next day. [facility] 02-22-2025 Telephone encounter Note Cycle 2 cancelled and needs rescheduled for week after her port is placed on 03/04/25. The rest of schedule will need adjusted. Please call patient with new times. She is aware of all this as it was discussed at OV today. Elaina Silverio, RN [facility] Work Phone: 02-22-2025 History of Presen t [...] PATIENT PRESENTS WITH AN IMPLANTABLE OR ATTACHED CERTIFIED TRAVEL COUNSELOR: Yes [facility] RADIOLOGY DEPARTMENT: General X-ray: Exam(s) Completed: Chest X-Ray PERIPHERAL IV DATA: Not applicable SIGNED BY: RT Tahmina(Dylan) February 22, 2025 2:02 PM documented in this encounter [facility] 02-22-2025 Note HNO ID: [id number] Author: TREVOR ORDONEZ RT(R) Service: ? Author [...] PATIENT PRESENTS WITH AN IMPLANTABLE OR ATTACHED CERTIFIED TRAVEL COUNSELOR: Yes [employer] RADIOLOGY DEPARTMENT: General X-ray: Exam(s) Completed: Chest X-Ray PERIPHERAL IV DATA: Not applicable SIGNED BY: Trevor Ольга, RT(R) February 22, 2025 2:02 PM [facility] 02-22-2025 Note HNO ID: [id number] Author: JUAN MIGUEL YUSUF MD Service: ? [...] presented with painless jaundice, admitted initially at [facility], transferred for further work up at [facility]. Saw hepatobiliary surgery there, noted pancreatic mass. [...] mouth once daily. (more content not included)... [facility] 02-18-2025 Note HNO ID: [id number] Author: DAINA CANTU, RN Service: ? Author [...] La Rosa, David White. RAYRAY Jamil, RN 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' The above documentation represents the discussion outcomes after review of this patient's case during the weekly Tumor Board. [facility] 02-15-2025 Telephone encounter Note Updated Dr. Horne for anurag this . Keep appointments as scheduled. Elaina Silverio RN [facility] Work Phone: 02-15-[address] Horne for anurag this . Keep appointments as scheduled. Elaina Silverio RN DISCHARGE CALL BACK Today's date: February 15, 2025 Notified of Pt discharge by: Erin Patient discharged on 02/14/25 from [facility] to Home Primary Cancer Diagnosis: pancreatic Admitting Diagnosis: acute pneumonia Discharge Summary/SBAR reviewed: Yes Handoff Discussed with Transitional 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: N/A Psychosocial Risk Factors: None If patient [...] Yes Patient reminded of follow-up appointment with [facility] provider, Dr. Yusuf on 02/22/25: Yes Discussed Has follow up with PCP. Will discuss labs with Dr. Yusuf and marya nne for port on . Will call back if plan needs to change. Timothy is picking up Rx at this time. Questions answered. PATIENT EDUCATION / REINFORCEMENT Patient verbalizes understanding of when to seek Medical Attention? YES Patient verbalizes understanding of after hours and weekend phone number? YES Maria Isabel Silverio RN documented in this encounter [facility] 02-15-2025 Note HNO ID: [id number] Author: NANCY HDZ MA Service: ? Author Type: Car Rental Manager Type: Progress Notes Filed: 02/15/2025 10:31 Note Text: POPULATION HEALTH NAVIGATION OUTREACH Action/February 15, 2025 10:18 AM CM Pool Message Type: TCM Navigation Team Update / Actionable Items Spoke with Patient's son. Patient TCM eligible till 03/01/2025. High risk 17% or higher. Please schedule within 7 days Patient discharged from [facility] Discharge date: 02/14/2025 Admitted for: Acute Pneumonia [...] Hdz MA February 15, 2025 10:18 AM [facility] 02-15-2025 History of Presen t illness Narrative POPULATION HEALTH NAVIGATION OUTREACH Action/February 15, 2025 10:18 AM CM Pool Message Type: TCM Navigation Team Update / Actionable Items Spoke with Patient's son. Patient TCM eligible till 03/01/2025. High risk 17% or higher. Please schedule within 7 days Patient discharged from [facility] Discharge date: 02/14/2025 Admitted for: Acute [...] TCM Home Visit Referral Source of Stratification: [facility] Admission Status: Discharged Readmission Risk Score: 17 Patient's zip code: [address] Is zip code within program service area: Y Patient meets program referral criteria: No Patient does not qualify for High Risk TCM Home Visit program due to: Readmission Risk Score does not meet criteria Dis[facility]: [facility], will provide TCM outreach follow-up for 30-days Patient Source: In-Network Discharge Initial outreach: TCM discharge report Outreach Summary: February 22, 2025 10:00 AM Nurse Vst with Lab/[place] [facility] Hematology/Oncology February 22, 2025 10:20 AM Office Vst with Juan Miguel Yusuf MD Hematology/Oncology February 24, 2025 11:00 AM 3 Hr Tx with TREATMENT RM 6 [facility] Hematology/Oncology Spoke with patient's son, Timothy. [...] losartan 100 mg tablet Patient discharged from [facility] Discharge date: 02/14/2025 Admitted for: Acute Pneumonia [...] I will send your request to a nursing scheduler who will contact and assist you with [...] 2025 9:59 AM documented in this encounter [facility] 02-15-2025 Telephone encounter Note DISCHARGE CALL BACK Today's date: February 15, 2025 Notified of Pt discharge by: Erin Patient discharged on 02/14/25 from [facility] to [place] Primary Cancer Diagnosis: pancreatic Admitting Diagnosis: acute pneumonia Discharge Summary/SBAR reviewed: Yes Handoff Discussed with Transitional 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: N/A Psychosocial Risk Factors: None If patient [...] Yes Patient reminded of follow-up appointment with [facility] provider, Dr. Yusuf on 02/22/25: Yes Discussed [...] phone number? YES Maria Isabel Royer, RN [facility] 02-15-2025 Note HNO ID: [id number] Author: PAULETTE CAGLE RN Service: ? Author [...] Readmission Risk Score: 17 Patient's zip code: [address] Is zip code within program service area: [...] 10:00 AM Nurse Vst with Lab/[place] [facility] Hematology/Oncology February 22, 2025 10:20 AM Office Vst with Juan Miguel Yusuf MD Hematology/Oncology February 24, 2025 11:00 AM 3 Hr Tx with TREATMENT RM 6 [facility] Hematology/Oncology ----- Spoke with patient's sonTimothy. [...] losartan 100 mg tablet Patient discharged from [facility] Discharge date: 02/14/2025 Admitted for: Acute Pneumonia Readmission Risk: 17 Value-Based Contract: ACO Contact: Contact made with patient: Yes Hi, my name is Paulette Cagle RN and I am calling from the [facility] on behalf of your Primary Care Provider, [...] / TCM Fo (more content not included)... [facility] 02-15-2025 Note Patient Outreach ([facility] TELMA TINEO ([id number]) 1940 F Date Time Provider Department 02/15/25 [...] Home Visit Referral Source of Stratification: TCM [facility] Admission Status: Discharged Readmission Risk Score: 17 Patient's zip code: [address] Is zip code within program service area: [...] 10:00 AM Nurse Vst with Lab/[place] [facility] Hematology/Oncology February 22, 2025 10:20 AM Office Vst with Juan Miguel Yusuf MD Hematology/Oncology February 24, 2025 11:00 AM 3 Hr Tx with TREATMENT RM 6 [facility] Hematology/Oncology ------ Spoke with patient's son, [...] losartan 100 mg tablet Patient discharged from [facility] Discharge date: 02/14/2025 Admitted for: Acute Pneumonia Readmission Risk: 17 Value-Based Contract: ACO Contact: Contact made with patient: Yes Hi, my name is Paulette Cagle RN and I am calling from the [facility] on behalf of your Primary Care Provider, [...] been addressed wit (more content not included)... [facility] 02-13-2025 Note [facility] 02-12-2025 Note [facility] 02-12-2025 Note HNO ID: [id number] Author: YUSUF EPPS RN Service: ? Author Type: Registered Nurse Type: Progress Notes Filed: 02/12/2025 08:21 Note Text: Patient is inpatient [facility] 02-11-2025 Note HNO ID: [id number] Author: HILDA WRIGHT MA Service: ? Author Type: Car Rental Manager Type: Progress Notes Filed: 02/11/2025 17:11 Note Text: POPULATION HEALTH NAVIGATION OUTREACH Action/FYI Patient's son returning [facility]'s phone call. Son stated patient is currently admitted at [facility]. You can reach son at [phone]. Reason for Outreach Healthy at Home Care Gaps due: N/A Call received from: Patient Patient Contacted: Spoke to patient/parent/or legal guardian Patient identified by name and date of Yes Healthy at Home actions taken: Routed to [facility] Devon Bynum RN as FYI Navigation Signature: Hilda Wright MA February 11, 2025 5:09 PM [facility] 02-11-2025 History of Presen t illness Narrative POPULATION HEALTH NAVIGATION OUTREACH Action/FYI Patient's son returning [facility]'s phone call. Son stated patient is currently admitted at [facility]. You can reach son at [phone]. Reason for Outreach Healthy at Home Care Gaps due: N/A Call received from: Patient Patient Contacted: Spoke to patient/parent/or legal guardian Patient identified by name and date of Yes Healthy at Home actions taken: Routed to [facility] Devon Bynum RN as FYI Navigation Signature: Hilda Wright MA February 11, 2025 5:09 PM documented in this encounter [facility] 02-11-2025 Note HNO ID: [id number] Author: DEVON BYNUM RN Service: ? Author Type: Registered Nurse Type: Progress Notes Filed: 02/11/2025 16:19 Note Text: Transitional Care Management (TCM) Inpatient Outreach N/A - No specialty updates needed Summary: Patient admitted to: [facility] Patient admitted on: (Not on file) 02/10/25 Admitted for: acute Pneumonia Contact made with patient: Heather Marieviktor, II am a Registered Nurse and I am calling from the [facility] on behalf of your primary care provider. I am sorry that I missed you today, but your care is important to us, and we would like to touch base with you. Please check your My Chart for a message related to your current hospital stay., Thank you and have a great day. Devon Bynum RN February 11, 2025 [facility] 02-11-2025 History of Presen t illness Narrative Transitional Care Management (TCM) Inpatient Outreach N/A - No specialty updates needed Summary: Patient admitted to: [facility] Patient admitted on: (Not on file) 02/10/25 Admitted for: acute Pneumonia Contact made with patient: Heather Maireviktor, II am a Registered Nurse and I am calling from the [facility] on behalf of your primary care provider. I am sorry that I missed you today, but your care is important to us, and we would like to touch base with you. Please check your My Chart for a message related to your current hospital stay., Thank you and have a great day. Devon Bynum RN February 11, 2025 documented in this encounter [facility] 02-11-2025 Note [facility] 02-11-2025 Note Patient Outreach ([facility]) TELMA TINEO ([id number]) 1940 F Date Time Provider Department 02/11/25 HILDA WRIGHT During your visit today, we recorded the following information about you: Hilda Wright MA 02/11/2025 5:11 PM Signed POPULATION HEALTH NAVIGATION OUTREACH Action/FYI Patient's son returning [facility]'s phone call. Son stated patient is currently admitted at [facility]. You can reach son at [phone]. Reason for Outreach Healthy at Home Care Gaps due: N/A Call received from: Patient Patient Contacted: Spoke to patient/parent/or legal guardian Patient identified by name and date of Yes Healthy at Home actions taken: Routed to [facility] Devon Bynum RN as FYI Navigation Signature: Hilda Wright MA February 11, 2025 5:09 PM Allergies As of Date: 02/11/2025 Noted Allergy Reaction PENICILLINS 09/14/2021 10 - Anaphylaxis TETRACYCLINE 09/14/2021 2 - Rash TRAMADOL 07/01/2024 5 - Intolerance Comments: Trembling Date Reviewed: 02/11/2025 Reviewed by: Daphnie Ch LPN - Fully Assessed Reason for Visit: Population Health Navigation Outreach [3910] Cmt: H@[facility] Call Prescriptions as of 02/11/2025 - insulin [...] - Blood-Glucose Meter,Continuous (FREESTYLE TOLU 3 READER) [facility] [place] Use to check blood sugar at least [...] once daily. - Blood Pressure Test Kit-Large (Pivot ARM BP MONITOR) 1 Each once daily. 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 [facility] 02-11-2025 Note Patient Outreach ([facility]) TELMA TINEO ([id number]) 1940 F Date Time Provider Department 02/11/25 DEVON BYNUMDe During your visit today, we recorded the following information about you: Devon Bynum RN 02/11/2025 4:19 PM Signed Transitional Care Management (TCM) Inpatient Outreach N/A - No specialty updates needed Summary: Patient admitted to: [facility] Patient admitted on: (Not on file) 02/10/25 Admitted for: acute Pneumonia Contact made with patient: Heather Marieviktor, NANCY am a Registered Nurse and I am calling from the [facility] on behalf of your primary care provider. [...] - Blood-Glucose Meter,Continuous (FREESTYLE TOLU 3 READER) [facility] Use to check blood sugar at least [...] once daily. - Blood Pressure Test Kit-Large (Pivot ARM BP MONITOR) 1 Each once daily. [...] [R41.89] 05/20/2023 Diagnos (more content not included)... [facility] 02-10-2025 Note SARS-COV-2 (AGENT OF COVID-19) RNA: Not detected INFLUENZA A RNA: Not detected INFLUENZA B RNA: Not detected RESPIRATORY SYNCYTIAL VIRUS (RSV) RNA: Detected [facility] Comment on above: Performed By: #### 9 [id number] ####[facility] LABORATORYCLIA [id number] [place] [address] [place] 02-09-[address] Yusuf updated and no further instructions. Elaina Silverio RN [facility] Work Phone: 02-09-[address] Yusuf updated and no further instructions. Elaina Silverio RN [facility] Care Coordination FOLLOW-UP NOTE Patient identified [...] February 09, 2025 documented in this encounter [facility] 02-09-2025 Telephone encounter Note Mariel Care Coordination [...] Maria Isabel Silverio RN February 09, 2025 [facility] 02-08-2025 Telephone encounter Note Main . Dental contacted office states pt. Is scheduled for tooth Extraction on 02/15 @ 8:[address] Yusuf made aware. Azra Zuniga LPN [facility] 02-08-2025 Miscellaneous Notes Main [facility] Dental contacted office states pt. Is scheduled for tooth Extraction on 02/15 @ 8:[address] Yusuf made aware. Azra Zuniga LPN documented in this encounter [facility] 02-08-2025 Telephone encounter Note Mariel Care Coordination [...] Maria Isabel Silverio RN February 08, 2025 [facility] Work Phone: 02-08-2025 Miscellaneous Notes [facility] Care Coordination FOLLOW-UP NOTE Patient identified by [...] February 08, 2025 documented in this encounter [facility] 02-05-2025 Telephone encounter Note CXR completed today with Dr. Yusuf. ATB started. Follow up scheduled for 02/11/2025 post ATB. Aguirre to call back if symptoms change or patient becomes worse. Juanis Schuster RN [facility] 02-05-2025 Miscellaneous Notes CXR completed today with [...] Person calling: sonMann Aguirre Call patient at: [phone] (home) [phone] (cell) Was an appointment scheduled: No. She is at chemo today. Closing statement: Danielle Barreto documented in this encounter [facility] 02-05-2025 Telephone encounter Note Spoke with patient's son and reschedule port placement for 02/18. Rachel Bañuelos [facility] 02-05-2025 Miscellaneous Notes Spoke with patient's son [...] Pt is on Eliquis prescribed by Dr. aSrabia for afib. DARREN was advised to contact Dr. Sarabia regarding this. Dr. Yusuf aware. Pt has port insertion on Saturday. Advised to stop Eliquis today per surgeon's office. Dr. Yusuf aware of all issues stated above. States OK for treatment today. documented in this encounter [facility] 02-05-2025 Telephone encounter Note Secure chat started for rescheduling port Rachel Kolbs [facility] 02-05-2025 Telephone encounter Note Timothy notified. Advised ER if she gets worse over the weekend. Encouraged rest and hydration. Scheduled for port placement on Saturday, please assist in moving out one week per secure chat below. Left VM on Timothy's phone that we will need to reschedule. Please call family and assist with rescheduling. Yelitza Hopper LPN [facility] 02-05-2025 Telephone encounter Note Images from the original note were not included. [facility] 02-05-2025 History of Presen t illness Narrative [...] PATIENT PRESENTS WITH AN IMPLANTABLE OR ATTACHED CERTIFIED TRAVEL COUNSELOR: Yes [employer] RADIOLOGY DEPARTMENT: General X-ray: Exam(s) Completed: Chest X-Ray PERIPHERAL IV DATA: Not applicable SIGNED BY: RT Tahmina(Dylan) February 05, 2025 12:02 PM documented in this encounter [facility] 02-05-2025 Note HNO ID: [id number] Author: TREVOR ORDONEZ RT(Dylan) Service: ? Author [...] PATIENT PRESENTS WITH AN IMPLANTABLE OR ATTACHED CERTIFIED TRAVEL COUNSELOR: Yes [facility] RADIOLOGY DEPARTMENT: General X-ray: Exam(s) Completed: Chest X-Ray PERIPHERAL IV DATA: Not applicable SIGNED BY: RT Tahmina(R) February 05, 2025 12:02 PM [facility] 02-05-2025 Telephone encounter Note SOCIAL WORK [...] in Care Team tab: Yes KANDACE Ferguson [facility] 02-05-2025 Miscellaneous Notes SOCIAL WORK FOLLOW UP [...] take advantage of support groups, either through [address] [place] [address], [place], or [facility]. He [...] Yes JOSÉ Ferguson-S documented in this encounter [facility] 02-05-[address] Yusuf called in Z morgan for pt. [facility] 02-05-2025 Telephone encounter Note PSYCHOSOCIAL SCREENING ASSESSMENT [...] Father is Child/Children: Yes. How many? 6 rn homecare arrangements needed: No Siblings: 5 sisters and 5 brothers Grandchild(nirmala): > 5 Home Health Provider: No Community Services: No [place]rie Identified: Yes Quaker/Spirituality: Holiness Are these practices or beliefs that may affect or influence treatment? 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 No Financial Distress: No : [...] EPIC: No Health Care Durable Power of Laboratory Miller: No and provided Living Will information for [...] adult children, 3 of whom live in [place], 3 still living in [place] where pt moved from. Pt reports she was born and raised in [place] and moved to [place], [place] at 19 years old. Pt raised [...] and advised him to call pt's Medicaid child support case officer and apply through the state. Pt declines [...] in Care Team tab: Yes JOSÉ Ferguson-Naveen [facility] 02-05-2025 Miscellaneous Notes PSYCHOSOCIAL SCREENING ASSESSMENT Date [...] Father is Child/Children: Yes. How many? 6 rn homecare arrangements needed: No Siblings: 5 sisters and 5 brothers Grandchild(nirmala): > 5 Home Health Provider: No Community Services: No Cherie Identified: Yes Quaker/Spirituality: Holiness Are these practices or beliefs that may affect or influence treatment? 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 No Financial Distress: No [place]: No FOOD INSECURITY Within the past year, [...] EPIC: No Health Care Durable Power of Laboratory Miller: No and provided Living Will information for [...] adult children, 3 of whom live in [place], 3 still living in [place] where pt moved from. Pt reports she was born and raised in [place] and moved to [place], [place] at 19 years old. Pt raised [...] and advised him to call pt's Medicaid child support case officer and apply through the state. Pt declines [...] Yes KANDACE Ferguson documented in this encounter [facility] 02-05-2025 Telephone encounter Note D8C1 Gemzar/Abraxane Pt [...] stated above. States OK for treatment today. [facility] 02-05-2025 Telephone encounter Note Message left for Timothy rayo to call back to schedule an appointment for Telma. Li Allison MA [facility] 02-05-2025 Telephone encounter Note With her issues,likely needs seen [facility] 02-05-2025 Telephone encounter Note Timothy is calling [...] Person calling: sonMann Aguirre Call patient at: [phone] (home) [phone] (cell) Was an appointment scheduled: No. She is at chemo today. Closing statement: Danielle Trevino Maikol Pss [facility] Work Phone: 02-05-2025 Telephone encounter Note No return phone call yesterday or this am. She has treatment scheduled for today and we can f/u with Timothy/patient at that time. Elaina Silverio RN [facility] Work Phone: 02-05-2025 Miscellaneous Notes No return phone call yesterday or this am. She has treatment scheduled for today and we can f/u with Timothy/patient at that time. Elaina Silverio RN Call for update on patient. Spoke with Timothy, they are at f/u with Dr. Nguyễn. He will call back at a later time. Elaina Silverio RN documented in this encounter [facility] 02-04-2025 Telephone encounter Note Call for update on patient. Spoke with Timothy, they are at f/u with Dr. Nguyễn. He will call back at a later time. Elaina Silverio RN [facility] 02-04-2025 History of Presen t illness Narrative Images from the original note were not included. Ayaz Nguyễn MD Surgical Oncology [address] [facility], [address] [place] [id number] Name: Telma Tineo Age: [age] year old [...] with Med Onc for neoadjuvant chemotherapy with Nolan/Abraxane. -Recommended restaging after 6 cycles of chemo - will coordinate timing of follow up with Dr. Yusuf -Currently on cycle 2. -Will present at tumor board for review of images. Ayaz Nguyễn MD 211802/04/2025 documented in this encounter [facility] 02-04-2025 Note [facility] 02-03-2025 Note HNO ID: [id number] Author: ESCOBAR MENDOZA LSW Service: ? Author Type: Metal Flooring Installer Type: Progress Notes Filed: 02/03/2025 15:16 Note Text: Value Based Social Work Progress Note Provider Action / FYI PCP Action none Date of Service: 01/27/2025 Patient identified by name/: Chart Review Referral Source: Referral Patient Outreach: Follow Up Mode of Outreach: none Response Time: n/a Narrative: VBSW reviewed chart. Pt and family have been receiving assistance/resources from Oncology [employer]. VBSW will defer to them for care needs. Interventions: Assessment VICKY Barboza February 03, 2025 3:15 PM [facility] 02-03-2025 Telephone encounter Note 1st time treatment report. Spoke with patient's son, Timothy, and explained that the patient has Medicare A and B as well as [facility] Medicaid so she is covered at 100%. Told him to call me periodically to see if any assistance opens up for her pancreatic cancer. Sent Cost Facit to patient's mychart. Diagnosis: Pancreatic Cancer - C25.0...01/19/25 Doctor: Juan Miguel Yusuf MD...[id number] [facility] 02-03-2025 Miscellaneous Notes 1st time treatment report. Spoke with patient's son, Timothy, and explained that the patient has Medicare A and B as well as [facility] Medicaid so she is covered at 100%. Told him to call me periodically to see if any assistance opens up for her pancreatic cancer. Sent Cost Facit to patient's mychart. Diagnosis: Pancreatic Cancer - C25.0...01/19/25 Doctor: Juan Miguel Yusuf MD...[id number] documented in this encounter [facility] 02-01-2025 Note HNO ID: [id number] Author: HENOK MARTINEZ MD Service: ? Author [...] without alteration from discharge summary. Admitted to [facility] and then transferred to [facility]. Admission Information ADMIT DATE: 01/14/2025 DISCHARGE DATE: 01/23/2025 REASON I WAS IN THE HOSPITAL: Uncontrolled diabetes, melena(GI bleed), pancreatic adenocarcinoma, obstructive jaundice, duodenal ulcer SUMMARY OF WHAT HAPPENED WHILE I WAS IN THE HOSPITAL: The patient is a pleasant 84-year-old female with history of A-fib on Eliquis and type 2 diabetes presented from [place] with pancreatic mass. She underwent EUS, ERCP [...] also wishes to recheck out to her box person earlier this week to ensure that he [...] 4 times d (more content not included)... [facility] 02-01-2025 History of Presen t illness [...] without alteration from discharge summary. Admitted to [facility] and then transferred to [facility]. Admission Information ADMIT DATE: 01/14/2025 DISCHARGE DATE: 01/23/2025 REASON I WAS IN THE HOSPITAL: Uncontrolled diabetes, melena(GI bleed), pancreatic adenocarcinoma, obstructive jaundice, duodenal ulcer SUMMARY OF WHAT HAPPENED WHILE I WAS IN THE HOSPITAL: The patient is a pleasant 84-year-old female with history of A-fib on Eliquis and type 2 diabetes presented from [place] with pancreatic mass. She underwent EUS, ERCP [...] also wishes to recheck out to her box person earlier this week to ensure that he [...] sugar. Blood-Glucose Meter,Continuous (FREESTYLE TOLU 3 READER) [facility] Use to check blood sugar at least [...] Reported on 01/26/2025) Blood Pressure Test Kit-Large (Pivot ARM BP MONITOR) 1 Each once daily. [...] onc. Getting port placed. Doing well. 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 Print out of offices by [facility] that accept Medicaid provided to pt's daughter. A few additional resources in [facility] provided as well. SW and pt also [...] in Care Team tab: Yes KANDACE Ferguson [facility] 01-29-2025 Miscellaneous Notes SOCIAL WORK FOLLOW UP [...] her mother. Print out of offices by [facility] that accept Medicaid provided to pt's daughter. A few additional resources in [facility] provided as well. SW and pt also [...] Yes KANDACE Ferguson documented in this encounter [facility] 01-29-2025 Telephone encounter Note TC back to Timothy who verbalized understanding that scripts sent as requested. CHAY Tolbert [facility] 01-29-2025 Miscellaneous Notes TC back to Timothy who verbalized understanding that scripts sent as requested. CHAY Tolbert sent ESTELLE 11/04/2024 02/01/2025 Timothy is calling Henok Martinez MD today to request a new glucometer, test, strips, and lancets. Patient has a freestyle tolu, but it is malfunctioning and they will not get a replacement for at least 10 days. Please send to [facility] in [place] Patient has been identified by name and birthdate. Duration of symptoms: Person calling: son: Timothy Call patient at: at home [phone] (home) [phone] (cell) Was an appointment scheduled: No Closing statement: Danielle Barreto documented in this encounter [facility] 01-29-2025 Telephone encounter Note sent [facility] 01-29-2025 Telephone encounter Note [facility] 11/04/2024 02/01/2025 [facility] 01-29-2025 Telephone encounter Note Timothy is calling Henok Martinez MD today to request a new glucometer, test, strips, and lancets. Patient has a freestyle tolu, but it is malfunctioning and they will not get a replacement for at least 10 days. Please send to [facility] in [place] Patient has been identified by name and birthdate. Duration of symptoms: Person calling: son: Timothy Call patient at: at home [phone] (home) [phone] (cell) Was an appointment scheduled: No Closing statement: Danielle Lassiter Pss [facility] Work Phone: 01-28-2025 Telephone encounter Note SOCIAL WORK FOLLOW UP NOTE: [facility] Date of service: January 28, 2025 Telma Tineo is being seen for a follow up social work visit. Today's visit includes: Timothy rayo TOPICS ADDRESSED: SW spoke with pt's sonTimothy, this date. SW referred to pt by RNCC d/t needing dental services however having difficulty finding a provider who will accept pt's Medicaid insurance. SW recommended [facility] clinic to pt's son. He reports pt does have an appointment there but that it's not for a while and they were wondering about getting her in somewhere sooner d/t risk of infection while receiving treatment. SW also recommended [facility]. Son reports they have attempted to schedule with them but they will not take Medicaid. Son reports that he will continue looking and is willing to travel to [place] or [place] with pt if needed. Sw to explore [...] listed in Care Team tab: Yes JOSÉ Ferguson-aNveen [facility] 01-28-2025 Miscellaneous Notes SOCIAL WORK FOLLOW UP NOTE: [facility] Date of service: January 28, 2025 Telma Tineo is being seen for a follow up social work visit. Today's visit includes: Timothy rayo TOPICS ADDRESSED: SW spoke with pt's son, Timothy, this date. SW referred to pt by RNCC d/t needing dental services however having difficulty finding a provider who will accept pt's Medicaid insurance. SW recommended [facility] clinic to pt's son. He reports pt does have an appointment there but that it's not for a while and they were wondering about getting her in somewhere sooner d/t risk of infection while receiving treatment. SW also recommended [facility]. Son reports they have attempted to schedule with them but they will not take Medicaid. Son reports that he will continue looking and is willing to travel to [place] or [place] with pt if needed. Sw to explore [...] Yes KANDACE Ferguson documented in this encounter [facility] 01-27-2025 Note HNO ID: [id number] Author: ESCOBAR MENDOZA LSW Service: ? Author Type: Metal Flooring Installer Type: Progress Notes Filed: 01/27/2025 15:37 Note Text: Value Based Social Work Progress Note Provider Action / FYI PCP Action none Date of Service: 01/27/2025 Patient identified by name/: No Referral Source: Referral Patient Outreach: Initial Mode of Outreach: Phone Call Response Time: Unable to reach (1st Attempt) Left message by: Voicemail VICKY Barboza January 27, 2025 3:36 PM [facility] 01-27-2025 History of Presen t illness Narrative Value Based Social Work Progress Note Provider Action / FYI PCP Action none Date of Service: 01/27/2025 Patient identified by name/: No Referral Source: Referral Patient Outreach: Initial Mode of Outreach: Phone Call Response Time: Unable to reach (1st Attempt) Left message by: Voicemail VICKY Barboza January 27, 2025 3:36 PM documented in this encounter [facility] 01-27-2025 History of Presen t illness Narrative Patient teaching was completed over the phone. Maria Isabel Silverio RN 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 Pre Chemo Patient identified by name and date of . YES Confirmed date and time for chemotherapy ? YES Other appointments (labs, imaging) discussed? YES Discussed where to park (program and research coordinator), charge for parking YES Discussed where to [...] with their insurance. This nurse will update certified social workers in health care on issue and ask for her assistance. [...] Isabel Silverio RN documented in this encounter [facility] 01-27-2025 Note HNO ID: [id number] Author: MARIA ISABEL SILVERIO RN Service: ? Author Type: Registered Nurse Type: Progress Notes Filed: 01/27/2025 11:43 Note Text: Patient teaching was completed over the phone. Maria Isabel Silverio RN 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 Pre Chemo Patient identified by name and date of . YES Confirmed date and time for chemotherapy ? YES Other appointments (labs, imaging) discussed? YES Discussed where to park (program and research coordinator), charge for parking YES Discussed where to [...] with their insurance. This nurse will update certified social workers in health care on issue and ask for her assistance. [...] take their insurance. Maria Isabel Silverio RN [facility] 01-26-2025 Note HNO ID: [id number] Author: KAT CRUZ MA Service: ? Author Type: Car Rental Manager Type: Progress Notes Filed: 01/26/2025 14:56 Note [...] Follow-up: High risk >15% 01/27/2025 in [facility] with FRUIT COORDINATOR [facility] - CHEMO ED 01/28/2025 in [facility] with TREATMENT RM 6 [facility] - CBC/START QMO GEMZAR ABRAXANE/D1/C1/6* 01/28/2025 in LAB [facility] MOB with LAB [facility] - CBC* 02/01/[address] [facility] with HENOK MARTINEZ [facility] discharge follow up, High risk 02/04/2025 in [facility] 3RD FLOOR with [facility] 02/05/2025 in [facility] with TREATMENT RM 8 [facility] - D8 GEMZAR ABRAXAZANE/LAB EARLY* 02/05/2025 in LAB [facility] MOB with LAB [facility] MOB - CBC* 02/12/2025 in LAB [facility] MOB with LAB [facility] MOB - CBC* 02/12/2025 in [facility] with TREATMENT RM 6 [facility] - D15 GEMZAR ABRAXANE/LAB EARLY* 02/23/2025 in LAB [facility] MOB with LAB [facility] MOB - CBC/CMP* 02/23/2025 in [facility] with BROOK HERNANDEZ/LAB EARLY/CHEMO 02/24* PARAMJIT 02/24/2025 in [facility] with TREATMENT RM 6 [facility] - QMO GEMZAR ABRAXANE/C2-6/LABANDOV 02/23* 03/03/2025 in [facility] with TREATMENT RM 9 [facility] - D8 GEMZAR ABRAXANE/LAB EARLY* 03/03/2025 in LAB [facility] MOB with LAB [facility] MOB - CBC* 03/10/2025 in LAB [facility] MOB with LAB [facility] MOB - CBC* 03/10/2025 in [facility] with TREATMENT RM 15 [facility] - D15 GEMZAR ABRAXAZANE/LAB EARLY* 03/23/2025 in LAB [facility] MOB with LAB [facility] M[facility] - CBC/CMP* 03/23/2025 in [facility] with HERNANDEZ, BROOK - OV/LAB EARLY/CHEMO 03/25* ABRAMOVICH 03/25/2025 in [facility] with TREATMENT RM 6 [facility] - QMO GEMZAR ABRAXANE/C3-6/LABANDOV 03/23* 03/31/2025 in LAB [facility] MOB with LAB [facility] MOB - CBC* 03/31/2025 in [facility] with TREATMENT RM 8 [facility] - D8 GEMZAR ABRAXANE/LAB EARLY* 04/07/2025 in LAB [facility] MOB with LAB [facility] MOB - CBC* 04/07/2025 in [facility] with TREATMENT RM 12 [facility] - D15 GEMZAR ABRAXAZANE/LAB EARLY* Navigation Signature: Kat Cruz MA January 26, 2025 2:55 PM [facility] 01-26-2025 History of Presen t illness Narrative POPULATION HEALTH NAVIGATION OUTREACH Action/FYI Spoke to son and hospital follow up scheduled. Declined other scheduling due to recent pancreatic cancer diagnosis. HEALTH MAINTENANCE DUE: Annual Wellness Visit Diabetic Eye exam Reason for Outreach Community Monitoring/Network Navigator Pools & Phone Line: [facility] Care Gaps due: Medicare Annual Wellness Visit Follow-up Appointment Diabetic Eye Exam Patient Contacted: Spoke to patient/parent/or legal guardian Patient identified by name and : Yes Community Monitoring/Network Navigator Pools & Phone Line actions taken: Patient scheduled / pended orders: Hospital Follow-up: High risk >15% 01/27/2025 in [facility] with FRUIT COORDINATOR [facility] - CHEMO ED 01/28/2025 in [facility] with TREATMENT RM 6 [facility] - CBC/START QMO GEMZAR ABRAXANE/D1/C1/6* 01/28/2025 in LAB [facility] MOB with LAB [facility] MOB - CBC* 02/01/[address] [facility] with HENOK MARTINEZ [facility] discharge follow up, High risk 02/04/2025 in [facility] 3RD FLOOR [facility] 02/05/2025 in [facility] with TREATMENT RM 8 [facility] - D8 GEMZAR ABRAXAZANE/LAB EARLY* 02/05/2025 in LAB [facility] MOB with LAB [facility] MOB - CBC* 02/12/2025 in LAB [facility] MOB with LAB [facility] MOB - CBC* 02/12/2025 in [facility] with TREATMENT RM 6 [facility] - D15 GEMZAR ABRAXANE/LAB EARLY* 02/23/2025 in LAB [facility] MOB with LAB [facility] MOB - CBC/CMP* 02/23/2025 in [facility] with BROOK HERNANDEZ - OV/LAB EARLY/CHEMO 02/24* PARAMJIT 02/24/2025 in [facility] with TREATMENT RM 6 [facility] - QMO GEMZAR ABRAXANE/C2-6/LAB&OV 02/23* 03/03/2025 in [facility] with TREATMENT RM 9 [facility] - D8 GEMZAR ABRAXANE/LAB EARLY* 03/03/2025 in LAB [facility] MOB with LAB [facility] MOB - CBC* 03/10/2025 in LAB [facility] MOB with LAB [facility] MOB - CBC* 03/10/2025 in [facility] with TREATMENT RM 15 [facility] - D15 GEMZAR ABRAXAZANE/LAB EARLY* 03/23/2025 in LAB [facility] MOB with LAB [facility] MOB - CBC/CMP* 03/23/2025 in [facility] with GALEN HERNANDEZNA - OV/LAB EARLY/CHEMO 03/25* ABRAMOVICH 03/25/2025 in [facility] with TREATMENT RM 6 [facility] - QMO GEMZAR ABRAXANE/C3-6/LAB&OV 03/23* 03/31/2025 in LAB [facility] MOB with LAB [facility] MOB - CBC* 03/31/2025 in [facility] with TREATMENT RM 8 [facility] - D8 GEMZAR ABRAXANE/LAB EARLY* 04/07/2025 in LAB [facility] MOB with LAB [facility] MOB - CBC* 04/07/2025 in [facility] with TREATMENT RM 12 [facility] - D15 GEMZAR ABRAXAZANE/LAB EARLY* Navigation Signature: Kat Cruz MA January 26, 2025 2:55 PM Transition Care Management (TCM) Initial Outreach PCP Update / Actionable Items Social Work Update / Actionable Items Please contact pt Timothy rayo ([phone]), to discuss resources for food and transportation. Thanks! Navigation Team Update / Actionable Items Please contact pt Timothy rayo ([phone]), to schedule OV with PCP for TCM [...] additional questions or concerns. Patient discharged from [facility] Discharge date: 01/23/25 Admitted for: Jaundice Readmission Risk: 20 Value-Based Contract: ACO Contact: Contact made with patient: Yes Hi, my name is Stuart Dias RN and I am calling from the [facility] on behalf of your Primary Care Provider, [...] appropriate pool: Medicare ACM Social Work Pool [[id number]] - Wendy KEVIN MA Follow-Up Appointment: [Appointment / TCM Follow-up within 14 days] I would like to help you schedule a hospital follow-up virtual or telephone visit with your PCP. This is a great way for you to connect with your provider to ensure you have safely transitioned home. If you are agreeable, I will send your request to a nursing scheduler who will contact and assist you with [...] 2025 1:28 PM documented in this encounter [facility] 01-26-2025 Note HNO ID: [id number] Author: STUART DIAS RN Service: ? Author Type: Registered Nurse Type: Progress Notes Filed: 01/26/2025 13:30 Note Text: Transition Care Management (TCM) Initial Outreach PCP Update / Actionable Items Social Work Update / Actionable Items Please contact pt Timothy rayo ([phone]), to discuss resources for food and transportation. Thanks! Navigation Team Update / Actionable Items Please contact pt Timothy rayo ([phone]), to schedule OV with PCP for TCM [...] additional questions or concerns. Patient discharged from [facility] Discharge date: 01/23/25 Admitted for: Jaundice Readmission Risk: 20 Value-Based Contract: ACO Contact: Contact made with patient: Yes Hi, my name is Stuart Dias RN and I am calling from the [facility] on behalf of your Primary Care Provider, [...] and routed to appropriate pool: Medicare ACM Sk[employer] [place] [[id number]] - Wendy KEVIN MA Follow-Up Appointment: [Appointment / TCM Follow-up within 14 days] I would like to help you schedule a hospital follow-up virtual or telephone visit with your PCP. This is a great way for you to connect with your provider to ensure you have safely transitioned home. If you are agreeable, I will send your request to a nursing scheduler who will contact and assist you with [...] for scheduling. E (more content not included)... [facility] 01-26-2025 Telephone encounter Note Detailed message left for Timothy informing him to have Telma try otc miralax for 2 days and to call with worsening symptoms. Advised him to call back with any questions or concerns. Li Allison MA [facility] 01-26-2025 Miscellaneous Notes Detailed message left for [...] not included. Henok Martinez MD [facility]str [facility] Angier Pool2 minutes ago (10:40 AM) Any pain [...] Johnna Medina LPN documented in this encounter [facility] 01-26-2025 Telephone encounter Note Images from the original note were not included. Henok Martinez MD [facility] Angier Pool4 minutes ago (10:52 AM) Try miralax daily otc first. Call if no results in 2 Days or if anything worsens [facility] 01-26-2025 Telephone encounter Note Spoke with Timothy, [...] as of yet. Advise. Li Allison MA [facility] 01-26-2025 Telephone encounter Note Images from the original note were not included. Henok Martinez MD [facility] Michelle Pool2 minutes ago (10:40 AM) Any pain or vomiting. What was last bm? Are they using anything at all right now? [facility] 01-26-2025 Telephone encounter Note Pt's son calls [...] Please review and advise. Johnna Medina LPN [facility] 01-26-2025 Note Patient Outreach ([facility]) TELMA TINEO ([id number]) 1940 F Date Time Provider Department 01/26/25 STUART DIAS During your visit today, we recorded the following information about you: Stuart Dias, RN 01/26/2025 1:30 PM Signed Transition Care Management (TCM) Initial Outreach PCP Update / Actionable Items Social Work Update / Actionable Items Please contact pt Timothy rayo ([phone]), to discuss resources for food and transportation. Thanks! Navigation Team Update / Actionable Items Please contact pt Timothy rayo ([phone]), to schedule OV with PCP for TCM f/u. Readmission Risk-20% High Risk-schedule within 7 days. Thanks! [facility] Referral Source of Stratification: [facility] Hospital Admission Status: Discharged Readmission Risk [...] additional questions or concerns. Patient discharged from [facility] Discharge date: 01/23/25 Admitted for: Jaundice Readmission Risk: 20 Value-Based Contract: ACO Contact: Contact made with patient: Yes Hi, my name is Stuart Dias RN and I am calling from the [facility] on behalf of your Primary Care Provider, [...] appropriate pool: Medicare ACM Social Work Pool [[phone]] - Wendy KEVIN MA Follow-Up Appointment: [Appointment / TCM Follow-up within 14 days] I would like to help you schedule a hospital follow-up virtual or telephone visit with your PCP. This is a great way for you to connect with your provider to ensure you have safely transitioned home. If you are agreeable, I will send your request to a nursing scheduler who will contact and assist you with that appointment. This will give you an opportunity to ask any questions or address any concerns you may have with your PCP. Inform the patient that if they have any questions or concerns prior to that appoin (more content not included)... [facility] 01-25-2025 Telephone encounter Note This has been scheduled as directed [facility] 01-25-2025 Miscellaneous Notes This has been scheduled as directed Labs today-DONE Chemo Education-SCHEDULED 4/2 Start Nolan/Abraxane, straight back to start with CBC (3wks on/1 wk off) CBC with each treatment CBC/CMP/OV with each Q 28day cycle Start treatment this week if possible per Elaina documented in this encounter [facility] 01-25-2025 Telephone encounter Note Labs today-DONE Chemo Education-SCHEDULED 4/2 Start Nolan/Abraxane, straight back to start with CBC (3wks on/1 wk off) CBC with each treatment CBC/CMP/OV with each Q 28day cycle Start treatment this week if possible per Elaina [facility] 01-25-2025 Telephone encounter Note Met with patient and introduced myself. Patient was given a My Journey binder with chemocare information, office contact information, thermometer, and additional chemotherapy resource booklets. Patient aware this nurse will review on scheduled appointment date. Elaina Silverio RN [facility] Work Phone: 01-25-2025 Miscellaneous Notes Met with patient and introduced myself. Patient was given a My Journey binder with chemocare information, office contact information, thermometer, and additional chemotherapy resource booklets. Patient aware this nurse will review on scheduled appointment date. Elaina Silverio RN documented in this encounter [facility] 01-25-2025 Telephone encounter Note This pt is scheduled. Nasim Fragoso [facility] 01-25-2025 Miscellaneous Notes This pt is scheduled. Nasim Fragoso Dr. Freeman referring her for new diagnosis of pancreas cancer. Next new patient appointment with either me or Dr. Yusuf. Amarilys Niño DO documented in this encounter [facility] 01-25-2025 Note HNO ID: [id number] Author: JUAN MIGUEL YUSUF MD Service: ? Author Type: Physician Type: Progress Notes Filed: 01/25/2025 11:44 Note Text: HISTORY OF PRESENT ILLNESS: Telma Tineo is a 84 year old female presented with painless jaundice, admitted initially at [facility], transferred for further work up at [facility]. Saw hepatobiliary surgery there, noted pancreatic mass. [...] Yes Blood-Glucose Meter,Continuous (FREESTYLE TOLU 3 READER) [facility] [place] Use to check blood sugar at least [...] GENERAL APPEARANCE: Well (more content not included)... [facility] 01-25-2025 History of Presen t illness Narrative HISTORY OF PRESENT ILLNESS: Telma Tineo is a 84 year old female presented with painless jaundice, admitted initially at [facility], transferred for further work up at [facility]. Saw hepatobiliary surgery there, noted pancreatic mass. [...] which included preparing to see the patient, kdci-py-tgxy patient care, completing clinical documentation, obtaining and/or reviewing separately obtained history, counseling and educating the patient/family/caregiver, ordering medications, tests, or procedures, communicating with other HCPs (not separately reported), independently interpreting results (not separately reported), communicating results to the patient/family/caregiver, and care coordination (not separately reported). Electronically Signed: Juan Miguel Yusuf MD January 25, 2025 8:35 AM documented in this encounter [facility] 01-24-[address] Freeman referring her for new diagnosis of pancreas cancer. Next new patient appointment with either mn or Dr. Yusuf. Amarilys Niño DO [facility] Work Phone: 01-23-2025 Note [facility] 01-22-2025 Note [facility] 01-22-2025 Note [facility] 01-21-2025 Note [facility] 01-21-2025 Telephone encounter Note Spoke w pt, she is hoping to be d/c today, she is schedule at 830am on Thursday 01/[address] Yusuf. Ok per nurse. Nasim Fragoso [facility] 01-21-2025 Miscellaneous Notes Spoke w pt, she is hoping to be d/c today, she is schedule at 830am on Thursday 01/[address] Yusfu. Ok per nurse. Nasim Fragoso Spoke with Dr. Yusuf, he will see this pt. PSS please reach out to pt. To get scheduled. Per Dr. Arroyo You can use multiple slots that are equal to 60 mins for scheduling New pt. Azra Zuniga LPN Received email from Dr Freeman advising below: Patient above was seen at [facility] for obstructive jaundice. 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 She lives in [place]- in fact, she was transferred from [facility]. She is believed to have localized disease, but given her age of 84, patient is unsure whether she would pursue aggressive treatment. I have placed a referral to Hematology/Oncology at [place], and am emailing you here in the hopes of expediting scheduling of her appointment. We did discuss options of neoadjuvant chemotherapy as well as hospice. Of note, patient is also scheduled to see our surgical oncologist Dr. Nguyễn in early January. Please review and advise! Dr Yusuf and Dr Niño were also copied on this email Entered referral for oncology follow-up at [place]. documented in this encounter [facility] 01-21-2025 Telephone encounter Note Spoke with Dr. Yusuf, he will see this pt. PSS please reach out to pt. To get scheduled. Per Dr. Arroyo You can use multiple slots that are equal to 60 mins for scheduling New pt. Azra Zuniga LPN [facility] 01-21-2025 Telephone encounter Note Received email from Dr Freeman advising below: Patient above was seen at [facility] for obstructive jaundice. 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 She lives in [place]- in fact, she was transferred from [facility]. She is believed to have localized disease, but given her age of 84, patient is unsure whether she would pursue aggressive treatment. I have placed a referral to Hematology/Oncology at [place], and am emailing you here in the hopes of expediting scheduling of her appointment. We did discuss options of neoadjuvant chemotherapy as well as hospice. Of note, patient is also scheduled to see our surgical oncologist Dr. Nguyễn in early January. Please review and advise! Dr Yusuf and Dr Niño were also copied on this email [facility] 01-21-2025 Telephone encounter Note Entered referral for oncology follow-up at [place]. [facility] 01-20-2025 Note Jaylyn Corbin [facility] 01-20-2025 Telephone encounter Note Notified Timothy. [facility] 01-20-2025 Miscellaneous Notes Notified Timothy. Rx sent Timothy, son called again and he stated [facility] can no longer bill medicare for diabetic CGM. They told him to have the prescriptions sent to [facility] [place]. Please notify Timothy once sent. Let them know rx sent. If there is anything else we can do please let us know Telma is a patient of Henok Martinez MD today girma Aguirre called and stated his mother is currently in the hospital and the doctor at the hospital is requesting PCP order the Tolu 3 CGM system. Please send to [facility] [place]. Please notify son once completed. Patient has been identified by name and birthdate. Duration of symptoms: N/A Person calling: son: Timothy Call patient at: on cell Was an appointment scheduled: No Closing statement: Results or non-symptom based questions: Thank you for calling [facility], your call will be returned within the next business day. Dahlia Franco Pss documented in this encounter [facility] 01-20-2025 Note [facility] 01-20-2025 Note [facility] 01-20-2025 Telephone encounter Note Rx sent [facility] 01-20-2025 Note [facility] 01-19-2025 Telephone encounter Note girma Aguirre called again and he stated that [facility] told him they can no longer bill medicare for diabetic CGM. They told him to have the prescriptions sent to [facility] [place]. Please notify Timothy once sent. [facility] 01-19-2025 Note [facility] 01-19-2025 Telephone encounter Note Let them know rx sent. If there is anything else we can do please let us know [facility] 01-19-2025 Telephone encounter Note Telma is a patient of Henok Martinez MD today Timothy son called and stated his mother is currently in the hospital and the doctor at the hospital is requesting PCP order the Tolu 3 CGM system. Please send to [facility] [place]. Please notify son once completed. Patient has been identified by name and birthdate. Duration of symptoms: N/A Person calling: son: Timothy Vasquez patient at: on cell Was an appointment scheduled: No Closing statement: Results or non-symptom based questions: Thank you for calling [facility], your call will be returned within the next business day. Dahlia Franco Pss [facility] 01-18-2025 Note [facility] 01-17-2025 Note [facility] 01-16-2025 Note [facility] 01-16-2025 Note [facility] 01-15-2025 Note [facility] 01-15-2025 Note [facility] 01-14-2025 Note [facility] Medical Records Department [address] [place] [id number] Discharge Summary 01/14/25 1707 MR#: [id number] Acct: [id number] Name: TELMA TINEO Rep #: [id number] : 1940 84 From: Jose Wu DO PCP: Dr. Henok Martinez MD Status:DIS IN Location: [facility] [id number] Providers Date of Admission: 01/10/25 Date of Discharge: 01/14/25 Primary Care Physician: Dr. Henok Martinez MD Consultations 01/10/25 06:51 Consult: Gastroenterology Routine Consulting Provider: [facility] Reason for Consult: Pancreatic head mass [...] cancer, patient is awaiting a bed in [facility] for further care #2 obstructive jaundice secondary [...] was seen in the emergency room at [facility] with complaints of discoloration of her xiby-gytkya-eex yellowing of her eyes. Patient states her [...] transferred to tertiary facility for further care, [facility] [place] [place] accept the patient but had [...] Psych affect normal Patient was discharged to [facility] on 01/15/2025. Medical Records Data Medical Nutrition Assessment Dietitian: Malnutrition (more content not included)... [facility] 01-14-2025 Progress note Note Date/Time January 14, 2025 8:23am [facility] Medical Records Department [address] [place] [address] Progress Note - Hospitalist 01/14/25 0821 MR#: [id number] Acct: [id number] Name: TELMA TINEO Rep #:[id number] : 1940 84 From: Jose Wu DO PCP: Dr. Henok Martinez MD Status:ADM I N Location: [address] Reason for Visit Reason for Visit: [...] received approval for her to bet[place]fer[place] [facility] [place] further care at this time Objective [...] 01/13/25 15:38 SB (Rec: 01/13/25 15:38 SB [id number]) Nutrition Malnutrition Evidence of Yes Malnutrition Exists [...] cancer, patient is awaiting a bed in [facility] for further care #2 obstructive jaundice secondary [...] 35 minutes Charges/Coding Visit Charges Inpatient E&M: 93383 Subs Hosp L2 01/14/25 0823 <Electronically signed by Jose Wu DO> Cosigner Signature (if applicable): CC: ~ Signed [facility] Work Phone: 1(642) 439-794003-20-[address] [facility] Medical Records Department [address] [place] [address] Progress Note - Hospitalist 01/14/25 0821 MR#: [id number] Acct: [id number] Name: TELMA TINEO Rep #:[id number] : 1940 84 From: Jose Wu DO PCP: Dr. Henok Martinez MD Status:ADM I N Location: [place] [address] Reason for Visit Reason for Visit: Diagnoses [...] received approval for her to betrans[place] [facility] [place] further care at this time Objective [...] 01/13/25 15:38 SB (Rec: 01/13/25 15:38 SB [id number]) Nutrition Malnutrition Evidence of Yes Malnutrition Exists [...] cancer, patient is awaiting a bed in [facility] for further care #2 obstructive jaundice secondary [...] Glucerna shake 3 times daily with med MaxLinear was ordered Total clinical time spent by myself addressing the patient's medical issues, reviewing all of her data, and collaborating with patient's care team: 35 minutes Charges/Coding Visit Charges Inpatient E&M: 90177 Subs Hosp L2 01/14/25 0823 Cosigner Signature (if applicable): CC: ~ Signed [facility]03-19-2025 Progress note Author Jose [facility] Note Date/Time January 13, 2025 9:3 8am [facility] Medical Records Department [address] [place] [address] Progress Note - Hospitalist 01/13/25 0936 MR#: [id number] Acct: [id number] Name: TELMA TINEO Rep #:[id number] : 1940 84 From: Jose Wu DO PCP: Dr. Henok Martinez MD Status:ADM I N Location: [place] [address] Reason for Visit Reason for Visit: Diagnoses [...] obtained a bed for the patient at [facility] although she has been accepted there. Patient [...] 01/10/25 12:40 SB (Rec: 01/10/25 12:40 SB [id number]) Nutrition Malnutrition Evidence of Yes Malnutrition Exists [...] glucerna shake TID with medpass. Will consult PATIENT ACCOUNTS SPECIALIST d/t pt reporting difficulty chewing/ swallowing foods. [...] Fluoroscopic services provided for ERCP. Reading Location: [place] [address] Physical Exam Narrative alert, oriented x3, no [...] cancer, patient is awaiting a bed in [facility] for further care, gastroenterology was not able [...] 35 minutes Charges/Coding Visit Charges Inpatient E&M: 48112 Subs Hosp L2 01/13/25 0938 <Electronically signed by Jose Wu DO> Cosigner Signature (if applicable): CC: ~ Signed [facility] Work Phone: 1(454) 972-640903-19-2025 Progress note [facility] Medical Records Department [address] [place] [address] Progress Note - Hospitalist 01/13/25 0936 MR#: [id number] Acct: [id number] Name: TELMA TINEO Rep #:[id number] : 1940 84 From: Jose Wu DO PCP: Dr. Henok Martinez MD Status:ADM I N Location: [place] [address] Reason for Visit Reason for Visit: Diagnoses [...] obtained a bed for the patient at [facility] although she has been accepted there. Patient [...] 01/10/25 12:40 SB (Rec: 01/10/25 12:40 SB [id number]) Nutrition Malnutrition Evidence of Yes Malnutrition Exists [...] glucerna shake TID with medpass. Will consult PATIENT ACCOUNTS SPECIALIST d/t pt reporting difficulty chewing/ swallowing foods. [...] Fluoroscopic services provided for ERCP. Reading Location: [facility] Physical Exam Narrative alert, oriented x3, no [...] cancer, patient is awaiting a bed in [facility] for further care, gastroenterology was not able [...] of Glucerna shake 3 times daily with Mobitto was ordered Total clinical time spent by myself addressing the patient's medical issues, reviewing all of her data, and collaborating with patient's care team: 35 minutes Charges/Coding Visit Charges Inpatient E&M: 62348 Subs Hosp L2 01/13/25 0938 Cosigner Signature (if applicable): CC: ~ Signed [facility]03-18-2025 Progress note Author Jose Wu [facility] Note Date/Time January 12, 2025 5:0 4pm [facility] Medical Records Department [address] [place] [address] Progress Note - Hospitalist 01/12/25 1700 MR#: [id number] Acct: [id number] Name: TELMA TINEO Rep #:[id number] : 1940 84 From: Jose Wu DO PCP: Dr. Henok Martinez MD Status:ADM I N Location: [place] [address] Reason for Visit Reason for Visit: Diagnoses [...] today, she underwent an ERCP but the therapist was unable to cannulate the common bile duct. I talked to the patient's daughter was in the room at the time my examination, I offered to check [facility] to see if they have any beds available, she consented to this but [facility] told me that they are backed up [...] 01/10/25 12:40 SB (Rec: 01/10/25 12:40 SB [id number]) Nutrition Malnutrition Evidence of Yes Malnutrition Exists [...] glucerna shake TID with medpass. Will consult PATIENT ACCOUNTS SPECIALIST d/t pt reporting difficulty chewing/ swallowing foods. [...] Fluoroscopic services provided for ERCP. Reading Location: [place] [address] Physical Exam Narrative alert, oriented x3, no [...] cancer, patient is awaiting a bed in [facility] for further care #2 obstructive jaundice secondary [...] 35 minutes Charges/Coding Visit Charges Inpatient E&M: 07193 Subs Hosp L2 01/12/25 1704 <Electronically signed by Jose Wu DO> Cosigner Signature (if applicable): CC: ~ Signed [facility] Work Phone: 1(808) 922-200003-18-2025 Progress note [facility] Medical Records Department [address] [place] [address] Progress Note - Hospitalist 01/12/25 1700 MR#: [id number] Acct: [id number] Name: TELMA TINEO Rep #:[id number] : 1940 84 From: Jose Wu DO PCP: Dr. Henok Martinez MD Status:ADM I N Location: [place] [address] Reason for Visit Reason for Visit: Diagnoses [...] today, she underwent an ERCP but the therapist was unable tocannulate the common bile duct. I talked to the patient's daughter was in the room at the time my examination, I offered to check [facility] to see if they have any beds available, she consented to this but [facility] told me that they are backed up [...] 01/10/25 12:40 SB (Rec: 01/10/25 12:40 SB [id number]) Nutrition Malnutrition Evidence of Yes Malnutrition Exists [...] glucerna shake TID with medpass. Will consult PATIENT ACCOUNTS SPECIALIST d/t pt reporting difficulty chewing/ swallowing foods. [...] Fluoroscopic services provided for ERCP. Reading Location: [place] [address] Physical Exam Narrative alert, oriented x3, no [...] cancer, patient is awaiting a bed in [facility] for further care #2 obstructive jaundice secondary [...] 35 minutes Charges/Coding Visit Charges Inpatient E&M: 30527 Subs Hosp L2 01/12/25 1704 Cosigner Signature (if applicable): CC: ~ Signed [facility]03-18-2025 Consult note Author José Escobar [facility] Note Date/Time January 12, 2025 2:0 8pm [facility] Medical Records Department [address] [place] [address] Anesthesia Postop Eval II 01/12/25 1408 MR#: [id number] Acct: [id number] Name: TELMA TINEO Rep #:[id number] : 1940 84 From: José Escobar MD PCP: Dr. Henok Martinez MD Status:ADM I N Y Race: H Location: [address] Anesthesia Postop Eval I Sum Postop Eval Completion status Anesthesia document: Postop Eval 1 completed: Yes Anesthesia Postop Eval I Summary Anesthesia Postop Eval I Summary: Anesthesia Postop Eval I: Assessment Summary Airway patent Yes 01/12/25 13:48 PERSONAL LINES ADVISOR.TNES Spontaneous unlabored Yes 01/12/25 13:48 PERSONAL LINES ADVISOR.TNES respirations Mental status nausea No 01/12/25 13:48 PERSONAL LINES ADVISOR.TNES Vomiting No 01/12/25 13:48 PERSONAL LINES ADVISOR.TNES Anesthesia Postop Eval I: Fluid Summary Crystalloid volume administer 1,000 01/12/25 13:48 PERSONAL LINES ADVISOR.TNES (ml) Colloids volume administered ( ml) Blood Product volume administered (ml) Total IV fluid infused 1,000 01/12/25 13:48 PERSONAL LINES ADVISOR.TNES Anesthesia Postop Eval I: Summary Notes Anesthesia Complication No 01/12/25 13:48 PERSONAL LINES ADVISOR.TNES Anesthesia Complication Comment: Post-operative progress note Anesthesia: Postop Eval II Evaluation Mental status: Awake Pain Level: 0 nausea: No Vomiting: No Complications Anesthesia Complication: No 01/12/25 1408 <Electronically signed by José Ecsobar MD> Date _ José Escobar MD Cosigner Signature: Date CC: ~ Signed [facility] Work Phone: 1(342) 989-540103-18-2025 Consult note Author Jr Kamara [facility] Note Date/Time January 12, 2025 1:4 8pm [facility] Medical Records Department [address] [place] [address] Anesthesia Postop Eval I 01/12/25 1348 MR#: [id number] Acct: [id number] Name: TELMA TINEOCA Rep #:[id number] : 1940 84 From: Jr RODAS PCP: Dr. Henok Martinez MD Status:ADM I N Y Race: H Location: [place] [address] Anesthesia: Postop Eval I Current Vital Signs [...] CRNA Cosigner Signature: Date CC: ~ Signed [facility] Work Phone: 1(300) 478-419303-18-2025 Radiology Diagnostic study note [facility] Imaging Services [address] [place] [id number] ERCP Biliary/Pancreas MR#: [id number] Acct: [id number] Name: TELMA TINEO Rep #: [id number] : 1940 F 84 From: Maynor Rosario MD PCP: Dr. Henok Martinez MD Status: ADM I N Study:ERCP Biliary/Pancreas Date of Exam: 01/12/25 Exam# [id number] Ordering Dr: Dylan Brown DO PROCEDURE: ERCP BILIARY/PANCREAS 01/12/2025 REASON FOR EXAM: PAIN. ERCP WITH SPY? TECHNIQUE: Fluoroscopic services provided for ERCP. Fluoroscopic time: 110.7 seconds 22.5 mGy 3 images were submitted. COMPARISON: None. FINDINGS: The therapist performed the ERCP. Fluoroscopic imaging provided. RAD/ERCP Biliary/Pancreas IMPRESSION: Fluoroscopic services provided for ERCP. Reading Location: [place] [address] CC: Dr. Henok Martinez MD; Mohit Brown DO ~ Wallpaper Consultant: Signed [facility]03-18-2025 Consult note [facility] Medical Records Department [address] [place] [address] Anesthesia Postop Eval II 01/12/25 1408 MR#: [id number] Acct: [id number] Name: TELMA TINEO Rep #:[id number] : 1940 84 From: José Escobar MD PCP: Dr. Henok Martinez MD Status:ADM I N Y Race: H Location: [place] [address] Anesthesia Postop Eval I Sum Postop Eval Completion status Anesthesia document: Postop Eval 1 completed: Yes Anesthesia Postop Eval I Summary Anesthesia Postop Eval I Summary: Anesthesia Postop Eval I: Assessment Summary Airway patent Yes 01/12/25 13:48 PERSONAL LINES ADVISOR.TNES Spontaneous unlabored Yes 01/12/25 13:48 PERSONAL LINES ADVISOR.TNES respirations Mental status nausea No 01/12/25 13:48 PERSONAL LINES ADVISOR.TNES Vomiting No 01/12/25 13:48 PERSONAL LINES ADVISOR.TNES Anesthesia Postop Eval I: Fluid Summary Crystalloid volume administer 1,000 01/12/25 13:48 PERSONAL LINES ADVISOR.TNES (ml) Colloids volume administered ( ml) Blood Product volume administered (ml) Total IV fluid infused 1,000 01/12/25 13:48 PERSONAL LINES ADVISOR.TNES Anesthesia Postop Eval I: Summary Notes Anesthesia Complication No 01/12/25 13:48 PERSONAL LINES ADVISOR.TNES Anesthesia Complication Comment: Post-operative progress note Anesthesia: Postop Eval II Evaluation Mental status: Awake Pain Level: 0 nausea: No Vomiting: No Complications Anesthesia Complication: No 01/12/25 1408 MD> Date _ José Escobar MD Cosigner Signature: Date CC: ~ Signed [facility]03-18-2025 Progress note Author Mohit Brown [facility] Note Date/Time January 12, 2025 12: 02pm [facility] Medical Records Department [address] [place] [address] Progress Note 01/12/25 1200 MR#: [id number] Acct: [id number] Name: TELMA TINEO Rep #:[id number] : 1940 84 From: Mohit Brown DO PCP: Dr. Henok Martinez MD Status:ADM I N Location: [place] [address] Progress Note Patient has been n.p.o. for [...] diabetes mellitus with hyperglycemia: QUALIFIERS: Diabetes mellitus care home insulin use: without extermination inspector use Qualified Code(s): E11.65 - Type 2 [...] 01/12/25 at 1202 Visit Charges Inpatient E&M: 78732 Subs Hosp L1 01/12/25 1202 <Electronically signed by Mohit farmer DO> Date _ Mohit Brown DO Cosigner Signature (if applicable): Date cc: ~* Signed [facility] Work Phone: 1(997) 825-865103-18-2025 Consult note [facility] Medical Records Department [address] [place] [address] Anesthesia Postop Eval I 01/12/25 1348 MR#: [id number] Acct: [id number] Name: TELMA TINEO Rep #:[id number] : 1940 84 From: Jr RODAS PCP: Dr. Henok Martinez MD Status:ADM I N Y Race: H Location: [facility] MS304 -1 Anesthesia: Postop Eval I Current Vital Signs Temperature: 97.7 F Pulse Rate: 81 Blood Pressure: 143/77 Respiratory Rate: 16 Pulse Ox: 96 Assessment Airway patent: Yes Spontaneous unlabored respirations: Yes nausea: No Vomiting: No Anesthesia Complication: No Fluid Hydration Crystalloid volume administer (ml): 1,000 Total IV fluid infused: 1,000 Progress Note Anesthesia document: Postop Eval 1 completed: Yes 01/12/25 1348 PERSONAL LINES ADVISOR> Date _ Jr Duffield PERSONAL LINES ADVISOR Cosigner Signature: Date CC: ~ Signed [facility]03-18-2025 Procedure note [facility] Medical Records Department [address] [place] [address] ERCP Report MR#: [id number] Acct: [id number] Name: ETLMA TINEO Rep #:[id number] : 1940 84 From: Mohit Brown DO [...] hour 8 minutes 42 seconds Findings: The manual winder film was normal. The bile duct could not be cannulated with the short-nosed traction sphincterotome. No biopsies or other specimens were collected for this exam. Impression: - No specimens collected. Procedure Code(s): --- Professional --- 74005, Esophagogastroduodenoscopy, flexible, transoral; diagnostic, including collection of specimen(s) by brushing or washing, when performed (separate procedure) CPT copyright 2021 [employer]. All rights reserved. The codes documented in this report are preliminary and upon finishing technician review may be revised to meet current compliance requirements. Mohit Brown DO 01/12/2025 1:41:52 PM This report has been signed electronically. Number of Addenda: 0 Note Initiated On: 01/12/2025 11:51 AM 01/12/25 1342 Date _ Mohit Brown DO Cosignjose Signature: Date (if indicated) CC: Dr. Henok Martinez MD; Mohit Brown DO ~ Date Dictated: 01/12/25 1151 Date Transcribed: Wallpaper Consultant: RF Signed [facility]03-18-2025 Procedure note [facility] Medical Records Department [address] [facility] [place] [address] Operative Report - CC Letter MR#: [id number] Acct: [id number] Name: TELMA TINEO Rep #:[id number] : 1940 84 From: Mohit Brown DO PCP: Dr. Henok Martinez MD Status:ADM I N 01/12/2025 Henok Martinez Re : ERCP procedure for Telma Wellington Angier This procedure was performed on Sunday, January [...] ~ Date Dictated: 01/12/25 1151 Date Transcribed: Wallpaper Consultant: RF Signed [facility]03-18-2025 Consult note Author José Escobar [facility] Note Date/Time January 12, 2025 11: 00am [facility] Medical Records Department [address] [place] [address] Pre-Anesthesia Evaluation 01/12/25 1049 MR#: [id number] Acct: [id number] Name: TELMA TINEO Rep #:[id number] : 1940 84 From: José Escobar MD PCP: Dr. 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 crimping: Anesthesia History - loading unit operator crimping Hx Hospitalization Any Problems With Anesthesia No [...] take am of surgery PONV PONV - loading unit operator crimping: PONV - loading unit operator crimping Female HX of Motion Sickness HX of N/V After Surgery Non-Smoker Duration of Surgery greater than 60 minutes Number of Risk Factors PONV Score Height & Weight Height & Weight: Anesthesia: Height & Weight Height 5 ft 01/12/25 08:02 Weight: 67.2 kg 01/12/25 08:02 Body Mass Index (BMI) 28.9 01/12/25 08:02 Respiratory Assessment Respiratory Assessment - loading unit operator crimping: Respiratory Tract Infection Hx - loading unit operator crimping Hx Respiratory Tract Infection No 01/11/25 21:37 STOP Sleep Apnea STOP Sleep Apnea - loading unit operator crimping: STOP Sleep Apnea - loading unit operator crimping Hx Hypertension Yes 01/11/25 11:23 Hx Sleep [...] Tobacco Use History Tobacco Use History - loading unit operator crimping: Tobacco Use History - loading unit operator crimping Tobacco Use Smoking Status Former smoker 01/10/25 02:58 Hx Tobacco Use No 01/10/25 02:58 Years Smoking Packs Smoked per Day Smoking Cessation Date was No - quit smoking greater 01/10/25 02:58 within the last 15 years than 15 years ago Hx Smoking Cessation Date 10/28/77 01/10/25 02:58 Hx Smoking Cessation No 01/10/25 02:58 Counseling Hematologic Medial History Hematologic 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 Hx of Blood Transfusion No 01/10/25 02:58 [...] confused, unrespo /Reproduction History /Reproductive History - loading unit operator crimping: /Reproductive Hx- loading unit operator crimping Hx Now No 01/11/25 21:37 Gestational Age [...] 100 Mg Tablet PO Not Given DAILY [facility] Protocol Magnesium Hydroxide 30 ml 01/10/25 02:57 Magnesium Hydroxide 30 Ml Udc PO DAILY PRN PRN Constipation Melatonin 3 mg 01/10/25 02:57 Melatonin 3 Mg Tablet PO QHS PRN PRN INSOMNIA Metoprolol Tartrate 50 mg 01/10/25 10:00 01/12/25 09:45 Metoprolol Tartrate 50 Mg Tablet PO 50 mg BID [facility] Administration Protocol Morphine Sulfate 2 mg 01/10/25 02:57 Morphine 2 Mg/Ml Syringe IV Q4H PRN PRN Pain Score 6-10 Multivitamins 1 tablet 01/10/25 08:00 01/12/25 07:28 Multivitamins,Therapeutic [facility]t [facility] Nutritional Formula (Lactose Free) 120 ml 01/10/25 17:00 01/12/25 10:07 Glucerna Shake 120 Ml Liquid PO Not Given TIDCM [facility] Ondansetron HCl 4 mg 01/10/25 02:57 Ondansetron 4 Mg/2 Ml Vial IV Q6H PRN PRN NAUSEA/VOMITING Pantoprazole Sodium 40 mg 01/12/25 10:00 01/12/25 07:28 Pantoprazole Sodium 40 Mg Tablet PO Not Given DAILY [facility] Sodium Chloride 10 - 40 ml 01/10/25 02:43 01/11/25 21:55 0.9% Saline Lock 10 Ml Syringe IV 10 ml UD PRN Administration SALINE FLUSH Throat Lozenges 1 lozenge 01/10/25 02:57 Benzocaine/Menthol 1 Lozenge MUCOUS MEM Q2H PRN PRN SORE THROAT [facility] Medical History Neck pain, bilateral History [...] MD Cosigner Signature: Date CC: ~ Signed [facility] Work Phone: 1(986) 512-926403-18-2025 Progress note [facility] Medical Records Department [address] [place] [address] Progress Note 01/12/25 1200 MR#: [id number] Acct: [id number] Name: TELMA TINEO Rep #:[id number] : 1940 84 From: Mohit Friend DO PCP: Dr. Henok Martinez MD Status:ADM I N Location: [place] [address] Progress Note Patient has been n.p.o. for [...] diabetes mellitus with hyperglycemia: QUALIFIERS: Diabetes mellitus extermination inspector insulin use: without care home use Qualified Code(s): E11.65 - Type 2 [...] 01/12/25 at 1202 Visit Charges Inpatient E&M: 99091 Subs Hosp L1 01/12/25 1202 d DO> Date _ Mohit Brown DO Cosigner Signature (if applicable): Date cc: ~* Signed [facility]03-18-2025 Consult note [facility] Medical Records Department [address] [facility] [place] [address] Pre-Anesthesia Evaluation 01/12/25 1049 MR#: [id number] Acct: [id number] Name: TELMA TINEO Rep #:[id number] : 1940 84 From: José Escobar MD PCP: Dr. 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: Anesthesia History - loading unit operator crimping Hx Hospitalization Any Problems With Anesthesia No [...] take am of surgery PONV PONV - loading unit operator crimping: PONV - loading unit operator crimping Female HX of Motion Sickness HX of N/V After Surgery Non-Smoker Duration of Surgery greater than 60 minutes Number of Risk Factors PONV Score Height & Weight Height & Weight: Anesthesia: Height & Weight Height 5 ft 01/12/25 08:02 Weight: 67.2 kg 01/12/25 08:02 Body Mass Index (BMI) 28.9 01/12/25 08:02 Respiratory Assessment Respiratory Assessment - loading unit operator crimping: Respiratory Tract Infection Hx - loading unit operator crimping Hx Respiratory Tract Infection No 01/11/25 21:37 STOP Sleep Apnea STOP Sleep Apnea - loading unit operator crimping: STOP Sleep Apnea - loading unit operator crimping Hx Hypertension Yes 01/11/25 11:23 Hx Sleep [...] Tobacco Use History Tobacco Use History - loading unit operator crimping: Tobacco Use History - loading unit operator crimping Tobacco Use Smoking Status Former smoker 01/10/25 02:58 Hx Tobacco Use No 01/10/25 02:58 Years Smoking Packs Smoked per Day Smoking Cessation Date was No - quit smoking greater 01/10/25 02:58 within the last 15 years than 15 years ago Hx Smoking Cessation Date 10/28/77 01/10/25 02:58 Hx Smoking Cessation No 01/10/25 02:58 Counseling Hematologic Medial History Hematologic 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 Hx of Blood Transfusion No 01/10/25 02:58 [...] confused, unrespo /Reproduction History /Reproductive History - loading unit operator crimping: /Reproductive Hx- loading unit operator crimping Hx Now No 01/11/25 21:37 Gestational Age [...] 10 Mg Tablet PO Not Given DAILY [facility] Protocol Enoxaparin Sodium 40 mg 01/10/25 10:00 01/12/25 07:28 Enoxaparin 40 Mg/0.4 Ml Syringe SC Not Given DAILY [facility] Glucagon 1 mg 01/10/25 07:49 Glucagon 1 [...] 100 Unit/Ml Insuln.Pen SC Not Given ACHS [facility] Protocol Ketorolac Tromethamine 15 mg 01/10/25 02:57 Ketorolac 15 Mg/Ml Vial IV 01/15/25 02:57 Q8H PRN PRN Pain 1- 5/10 or Fever Losartan Potassium 100 mg 01/10/25 10:00 01/12/25 09:51 Losartan Potassium 100 Mg Tablet PO Not Given DAILY [facility] Protocol Magnesium Hydroxide 30 ml 01/10/25 02:57 Magnesium Hydroxide 30 Ml Udc PO DAILY PRN PRN Constipation Melatonin 3 mg 01/10/25 02:57 Melatonin 3 Mg Tablet PO QHS PRN PRN INSOMNIA Metoprolol Tartrate 50 mg 01/10/25 10:00 01/12/25 09:45 Metoprolol Tartrate 50 Mg Tablet PO 50 mg BID [facility] Administration Protocol Morphine Sulfate 2 mg 01/10/25 02:57 Morphine 2 Mg/Ml Syringe IV Q4H PRN PRN Pain Score 6-10 Multivitamins 1 tablet 01/10/25 08:00 01/12/25 07:28 Multivitamins,Therapeutic Tablet PO [facility] Nutritional Formula (Lactose Free) [...] MD Cosigner Signature: Date CC: ~ Signed [facility]03-17-2025 History and physical note Author Mohit Brown [facility] Note Date/Time January 11, 2025 8:[address] [facility] Medical Records Department [address] [place] [address] History & Physical Exam 01/11/252012 MR#: [id number] Acct: [id number] Name: TELMA TINEO Rep #:[id number] : 1940 84 From: Mohit Brown DO PCP: Dr. Henok Martinez MD Status:ADM I N Location: MS3 [id number] [facility] - General General Date of Admission: [...] on admission. Her mother of pancreatic cancer. [facility] Medical History Neck pain, bilateral History [...] Severe anaphylaxis Verified 01/09/25 19:02 tramadol (From [employer]) AdvReac Severe syncope Verified 01/09/25 21:02 Family [...] 01/10/25 12:40 SB (Rec: 01/10/25 12:40 SB [id number]) Nutrition Malnutrition Evidence of Yes Malnutrition Exists [...] glucerna shake TID with medpass. Will consult PATIENT ACCOUNTS SPECIALIST d/t pt reporting difficulty chewing/ swallowing foods. [...] % (Auto) 62.1, Lymph % (Auto) 22.9, [place] % (Auto) 11.6 H, Eos % (Auto) [...] diabetes mellitus with hyperglycemia: QUALIFIERS: Diabetes mellitus extermination inspector insulin use: without extermination inspector use Qualified Code(s): E11.65 - Type 2 [...] pancreatic cancer. Charges/Coding Visit Charges Inpatient E&M: 42358 Init Hosp L3 01/11/252018 <Electronically signed by Mohit Brown DO> Cosigner Signature (if applicable): CC: Dr. Henok Martinez MD; Mohit Brown DO~ Signed [facility] Work Phone: 1(280) 198-758803-17-2025 History and physical note [facility] Medical Records Department [address] [place] [address] History & Physical Exam 01/11/252012 MR#: [id number] Acct: [id number] Name: TELMA TINEO Rep #:[id number] : 1940 84 From: Mohit Brown DO PCP: Dr. Henok Martinez MD Status:ADM I N Location: [address] HPI - General General Date of [...] on admission. Her mother of pancreatic cancer. [facility] Medical History Neck pain, bilateral History [...] 01/10/25 12:40 SB (Rec: 01/10/25 12:40 SB [id number]) Nutrition Malnutrition Evidence of Yes Malnutrition Exists [...] glucerna shake TID with medpass. Will consult PATIENT ACCOUNTS SPECIALIST d/t pt reporting difficulty chewing/ swallowing foods. [...] % (Auto) 62.1, Lymph % (Auto) 22.9, [place] % (Auto) 11.6 H, Eos % (Auto) [...] diabetes mellitus with hyperglycemia: QUALIFIERS: Diabetes mellitus care home insulin use: without extermination inspector use Qualified Code(s): E11.65 - Type 2 [...] pancreatic cancer. Charges/Coding Visit Charges Inpatient E&M: 57011 Init Hosp L3 01/11/252018 Cosigner Signature (if applicable): CC: Dr. Henok Martinez MD; Mohit Brown DO~ Signed [facility]03-17-2025 [facility] Medical Records Department [address] [place] [address] History Physical Exam 01/11/252012 MR#: [id number] Acct: [id number] Name: TELMA TINEO Rep #: [id number] : 1940 84 From: Mohit Brown DO PCP: Dr. Henok Martinez MD Status:ADM IN Location: [facility] [id number] [facility] Date of Admission: 01/10/25 Date of Service: 01/11/25 Chief Complaint: Jaundice. [facility] Narrative TELMA TINEO, is a 84 [...] on admission. Her mother of pancreatic cancer. [facility] Medical History Neck pain, bilateral History [...] Source Monitor Monitor Bl (more content not included)...[facility]03-17-2025 Progress note Author Jose Wu [facility] Note Date/Time January 11, 2025 3:4 0pm [facility] Medical Records Department [address] [place] [address] Progress Note - Hospitalist 01/11/25 1534 MR#: [id number] Acct: [id number] Name: TELMA TINEO Rep #:[id number] : 1940 84 From: Jose Wu DO PCP: Dr. Henok Martinez MD Status:ADM I N Location: [place] [address] Reason for Visit Reason for Visit: Diagnoses [...] bed for the patient be transferred [place] [facility] [place] [place]. Objective Data Objective Data Vital Signs: Vital [...] 01/10/25 12:40 SB (Rec: 01/10/25 12:40 SB [id number]) Nutrition Malnutrition Evidence of Yes Malnutrition Exists [...] glucerna shake TID with medpass. Will consult PATIENT ACCOUNTS SPECIALIST d/t pt reporting difficulty chewing/ swallowing foods. [...] % (Auto) 62.1, Lymph % (Auto) 22.9, [place] % (Auto) 11.6 H, Eos % (Auto) [...] cancer, patient is awaiting a bed in [facility] for further care #2 obstructive jaundice secondary [...] 35 minutes Charges/Coding Visit Charges Inpatient E&M: 43456 Subs Hosp L2 01/11/25 1540 <Electronically signed by Jose Wu DO> Cosigner Signature (if applicable): CC: ~ Signed [facility] Work Phone: 1(107) 887-427403-17-2025 Progress note [facility] Medical Records Department [address] [place] [address] Progress Note - Hospitalist 01/11/25 1534 MR#: [id number] Acct: [id number] Name: TELMA TINEO Rep #:[id number] : 1940 84 From: Jose Wu DO PCP: Dr. Henok Martinez MD Status:ADM I N Location: [place] [address] Reason for Visit Reason for Visit: Diagnoses [...] bed for the patient be transferred to [facility] [place]. Objective Data Objective Data Vital Signs: Vital [...] 01/10/25 12:40 SB (Rec: 01/10/25 12:40 SB [id number]) Nutrition Malnutrition Evidence of Yes Malnutrition Exists [...] glucerna shake TID with medpass. Will consult PATIENT ACCOUNTS SPECIALIST d/t pt reporting difficulty chewing/ swallowing foods. [...] % (Auto) 62.1, Lymph % (Auto) 22.9, [place] % (Auto) 11.6 H, Eos % (Auto) [...] cancer, patient is awaiting a bed in [facility] for further care #2 obstructive jaundice secondary [...] 35 minutes Charges/Coding Visit Charges Inpatient E&M: 71631 Subs Hosp L2 01/11/25 1540 Cosigner Signature (if applicable): CC: ~ Signed [facility]03-16-2025 Progress note Author Keenan Celeste [facility] Note Date/Time January 10, 2025 11: 47am [facility] Medical Records Department [address] [place] [address] Progress Note - Hospitalist 01/10/25 0741 MR#: [id number] Acct: [id number] Name: TELMA TINEO Rep #:[id number] : 1940 84 From: Keenan Celeste DO PCP: Dr. Henok Martinez MD Status:ADM I N Location: [place] [address]-1 Reason for Visit Reason for Visit: Diagnoses [...] % (Auto) 65.7, Lymph % (Auto) 21.5, [place] % (Auto) 10.8 H, Eos % (Auto) [...] % (Auto) 66.7, Lymph % (Auto) 19.4, [place] % (Auto) 12.1 H, Eos % (Auto) [...] report) Advance diet. Awaiting on transfer to [facility]. PLAN: Plan DM2: * uncontrolled: * check a1c * SSI. * hold metformin as pt received IV contrast. HTN: stable. Continue metoprolol, losartan, amlodipine. VTE prophylaxis: enoxaparin. Charges/Coding Visit Charges Inpatient E&M: 18994 Subs Hosp L2 01/10/25 1147 <Electronically signed by Keenan Celeste DO> Cosigner Signature (if applicable): CC: ~ Signed [facility] Work Phone: 1(276) 817-489803-16-2025 Progress note [facility] Medical Records Department [address] [place] [address] Progress Note - Hospitalist 01/10/25 0741 MR#: [id number] Acct: [id number] Name: TELMA TINEO Rep #:[id number] : 1940 84 From: Keenan Celeste DO PCP: Dr. Henok Martinez MD Status:ADM I N Location: [place] [address] Reason for Visit Reason for Visit: Diagnoses [...] % (Auto) 65.7, Lymph % (Auto) 21.5, [place] % (Auto) 10.8 H, Eos % (Auto) [...] % (Auto) 66.7, Lymph % (Auto) 19.4, [place] % (Auto) 12.1 H, Eos % (Auto) [...] Other nonacute findings detailed above. [facility] Const alert and no apparent [...] CTreport) Advance diet. Awaiting on transfer to [facility]. PLAN: Plan DM2: * uncontrolled: * check a1c * SSI. * hold metformin as pt received IV contrast. HTN: stable. Continue metoprolol, losartan, amlodipine. VTE prophylaxis: enoxaparin. Charges/Coding Visit Charges Inpatient E&M: 35507 Subs Hosp L2 01/10/25 1147 Cosigner Signature (if applicable): CC: ~ Signed [facility]03-16-2025 History and physical note Author Oniel Hernandez [facility] Note Date/Time January 10, 2025 6:5 7am [facility] Medical Records Department [address] [place] [address] H&P Exam - Hospitalist 01/10/25 0039 MR#: [id number] Acct: [id number] Name: TELMA TINEO Rep #:[id number] : 1940 84 From: Oniel Rojsa DO PCP: Dr. Henok Martinez MD Status:ADM I N Location: [facility] [id number] HPI - General General Date of Admission: [...] with chronic neck pain who presents to [facility] ER complaining of jaundice. Ms. Tineo reports [...] She was then arranged for transfer to [facility] [place] with bed not available at this time so the ER physician is contacted the hospitalist service to admit this patient until such time she can be safely transferred as per the policy of this hospital. She was then admitted to the general medical floor for ongoing care for stay that is expected to extend beyond 2 midnights. [facility] Medical History (Updated 01/10/25 @ 02:15 [...] % (Auto) 65.7, Lymph % (Auto) 21.5, [place] % (Auto) 10.8 H, Eos % (Auto) [...] diabetes mellitus with hyperglycemia: QUALIFIERS: Diabetes mellitus care home insulin use: without extermination inspector use Qualified Code(s): E11.65 - Type 2 [...] floor until a bed is available at [facility] [place]. Place on clear liquid diet. Start pantoprazole 40 mg IV daily. Give ondansetron IV as needed nausea and vomiting. Give ketorolac IV as needed [id number] (level 1-5/10) pain or fever. Give morphine [...] 75 minutes. Charges/Coding Visit Charges Inpatient E&M: 81740 Init Hosp L3 01/10/25 0657 <Electronically signed by Oinel Golden DO> Cosigner Signature (if applicable): CC: Dr. Oniel Golden DO; Dr. Henok Martinez MD~ Signed [facility] Work Phone: 1(553) 570-666503-16-2025 History and physical note [facility] Medical Records Department [address] [place] [address] H&P Exam - Hospitalist 01/10/25 0039 MR#: [id number] Acct: [id number] Name: TELMA TINEO Rep #:[id number] : 1940 84 From: Oniel Rojas DO PCP: Dr. Henok Martinez MD Status:ADM I N Location: [facility] [place] [id number] HPI - General General Date of Admission: [...] with chronic neck pain who presents to [facility] ER complaining of jaundice. Ms. Tineo reports [...] She was then arranged for [place] [facility] not available at this time so the ER physician is contacted the hospitalist service to admit this patient until such time she can be safely transferred as per the policy of this hospital. She was then admitted to the general medical floor for ongoing care for stay that is expected to extend beyond 2 midnights. [facility] Medical History (Updated 01/10/25 @ 02:15 [...] % (Auto) 65.7, Lymph % (Auto) 21.5, [place] % (Auto) 10.8 H, Eos % (Auto) [...] diabetes mellitus with hyperglycemia: QUALIFIERS: Diabetes mellitus care home insulin use: without care home use Qualified Code(s): E11.65 - Type 2 [...] floor until a bed is available [place] [facility] on clear liquid diet. Start pantoprazole 40 mg IV daily. Give ondansetron IV as needed nausea and vomiting. Give ketorolac IV as needed ognc-br-ntqjlmun (level 1-5/10) pain or fever. Give morphine [...] 75 minutes. Charges/Coding Visit Charges Inpatient E&M: 39514 Init Hosp 01/10/25 0657 Cosigner Signature (if applicable): CC: Dr. Oniel Golden DO; Dr. Henok Martinez MD~ Signed [facility]03-16-2025 Evaluation note* Diagnosis Onset Date [...] h hyperglycemia acute January 10, 2025 2:16am [facility] Work Phone: 1(441) 608-385303-16-2025 Discharge summary Author Guille Garnica [facility] Note Date/Time January 09, 2025 10: 44pm [facility] Medical Records Department [address] [place] [address] Emergency Department Summary 01/09/25 MR#: [id number] Acct: [id number] Name: TELMA TINEO Rep #:[id number] : 1940 84 From: Guille Garnica MD PCP: Dr. Henok Martinez MD Status:REG E R Location: ED ADDENDUM by Dr. Hung Remy DO on 03/15/25 at 2244 Update 2245 hrs.: Patient was accepted at [facility]. They are stating it is unlikely that [...] few days. No fevers or chills. [facility] Medical History Neck pain, bilateral History of [...] she has normal white count of 6.4, ybdktkxpxb02.6, hematocrit 37.4, platelet count normal at 171. [...] that her primary care provider is through [facility]. They prefer [facility] As it is in closer proximity, and they are associated with the [facility]. I discussed patient with the transfer line. [...] % (Auto) 65.7 Lymph % (Auto) 21.5 [place] % (Auto) 10.8 H Eos % (Auto) [...] Other nonacute findings detailed above. [facility] Triage Chief Complaint: Abn Labs [...] MD [Primary Care Provider] - Print Language: Haitian What to do if you have Problems For any increased pain, shortness of breath, bleeding, nausea or vomiting, chestpain, or any unexpected problems, contact your Primary Care Provider. Call [facility] ([phone]) or report to the closest Emergency Room. Call 911 if necessary. 01/09/252214 <Electronically signed by Guille Garnica MD> Cosigner Signature (if applicable): CC: Dr. Henok Martinez MD ~ Signed [facility] Work Phone: 1(624) 794-189503-16-2025 Discharge summary Author Guille Garnica [facility] Note Date/Time January 09, 2025 10: 44pm [facility] Medical Records Department [address] [place] [address] Emergency Department Summary 01/09/25 MR#: [id number] Acct: [id number] Name: TELMA TINEO Rep #:[id number] : 1940 84 From: Guille Garnica MD PCP: Dr. Henok Martinez MD Status:REG E R Location: ED ADDENDUM by Dr. Hung Remy DO on 01/09/25 at 2244 Update 2245 hrs.: Patient was accepted at [facility]. They are stating it is unlikely that [...] few days. No fevers or chills. [facility] Medical History Neck pain, bilateral History of [...] she has normal white count of 6.4, jyqsbmutds23.6, hematocrit 37.4, platelet count normal at 171. [...] that her primary care provider is through [facility]. They prefer [facility] As it is in closer proximity, and they are associated with the [facility]. I discussed patient with the transfer line. [...] % (Auto) 65.7 Lymph % (Auto) 21.5 [place] % (Auto) 10.8 H Eos % (Auto) [...] MD [Primary Care Provider] - Print Language: Haitian What to do if you have Problems For any increased pain, shortness of breath, bleeding, nausea or vomiting, chestpain, or any unexpected problems, contact your Primary Care Provider. Call [facility] ([phone]) or report to the closest Emergency Room. Call 911 if necessary. 01/09/252214 <Electronically signed by Guille Garnica MD> Cosigner Signature (if applicable): CC: Dr. Henok Martinez MD ~ Signed [facility] Work Phone: 1(942) 650-305603-15-2025 Discharge summary [facility] Medical Records Department [address] [place] [address] Emergency Department Summary 01/09/25 MR#: [id number] Acct: [id number] Name: TELMA TINEO Rep #:[id number] : 1940 84 From: Guille Garnica MD PCP: Dr. Henok Martinez MD Status:REG E R Location: ED ADDENDUM by Dr. Hung Remy DO on 01/09/25 at 2244 Update 2245 hrs.: Patient was accepted at [facility]. They are stating it is unlikely that [...] few days. No fevers or chills. [facility] Medical History Neck pain, bilateral History of [...] she has normal white count of 6.4, .6, hematocrit 37.4, platelet count normal at 171. [...] that her [facility] and [facility] are [facility] the [facility]. I discussed patient with the transfer line. [...] % (Auto) 65.7 Lymph % (Auto) 21.5 [place] % (Auto) 10.8 H Eos % (Auto) [...] Other nonacute findings detailed above. Reading [facility] Discharge Plan Triage Chief Complaint: Abn Labs [...] MD [Primary Care Provider] - Print Language: Haitian What to do if you have Problems For any increased pain, shortness of breath, bleeding, nausea or vomiting, chestpain, or any unexpected problems, contact your Primary Care Provider. Call [facility] ([phone]) or report tothe closest Emergency Room. Call 911 if necessary. 01/09/252214 Cosigner Signature (if applicable): CC: Dr. Henok Martinez MD ~ Signed [facility]03-15-2025 Radiology Diagnostic study note [facility] Imaging Services [address] [place], [place] [id number] Abdomen/Pelvis W IV Cont ONLY MR#: [id number] Acct: [id number] Name: TELMA TINEO Rep #: [id number] : 1940 F 84 From: Daniela Jonas MD PCP: Dr. Henok Martinez MD Status: REG E R Study:Abdomen/Pelvis W IV Cont ONLY Date of E xam: 01/09/25 Exam# [id number] Ordering Dr: Guille Garnica MD PROCEDURE: ABDOMEN/PELVIS [...] Other nonacute findings detailed above. Reading [facility] CC: Dr. Guille Garnica MD; Dr. Henok Martinez MD ~ Wallpaper Consultant: Signed [facility]03-10-2025 NoteHNO ID: [id number] Author: BRETT HATCH RN Service: ? Author [...] Brett Hatch RN [facility] 04, [facility]25 [facility] History of Present illness Narrative* Brett [...] 04, 2025 1:40 PM documented in this encounterToledo [facility]03-10-2025 NotePatient Outreach ([facility]) TELMA TINEO ([id number]) 1940 F Date Time Provider Department 01/04/25 [...] Date Reviewed: 11/17/2024 Reviewed by: Angelia Hart APRN.CARTRIDGE FILLER - Fully Assessed Prescriptions as of 01/04/2025 [...] with meals. - Blood Pressure Test Kit-Large (Pivot ARM BP MONITOR) 1 Each once daily. [...] 05/20/2023 Impaired cognition [R41.89] 05/20/2023 Diagnosed: 05/20/2023 intermediate current use of anticoagulant therapy *05/20/2023 Diagnosed: 05/20/2023 Neck pain [M54.2] 05/20/2023 05/20/2023 Diagnosed: 05/20/2023 Cerebrovascular accident (CVA) (HCC) [I63.9] 05/20/2023 Diagnosed: 05/20/2023 Encounter Status:Closed by BRETT HATCH [facility]25[facility] Telephone encounter Note* Telephone Encounter - Virginia Reina APRN.CNP - 12/15/2024 11:44 AM EST The following approved medication requests have been transmitted electronically. Requested Prescriptions Pending Prescriptions Disp Refills losartan (COZAAR) 100 mg tablet 90 tablet 3 Sig: Take 1 tablet by mouth once daily. Virginia Reina APRN.CNP [facility]02-18-2025 Miscellaneous Notes* Telephone Encounter - Virginia Reina [...] 15, 2024 10:59 AM documented in this encounterToledo Hospital02-18-2025 Telephone encounter Note * Telephone Encounter - [...] Ortiz LPN December 15, 2024 10:59 AM [facility]01-21-2025 History of Present illness Narrative* Click, Angelia Trevino APRN.CARTRIDGE FILLER - 11/17/2024 1:00 PM EST Images from [...] with increase in PPI. Ran out of [employer] and has been out since the beginning [...] Blood Pressure Test Kit-Large Commonly known as: Pivot ARM BP MONITOR 1 Each once daily. [...] mass or definite lymphadenopathy within the chest. Wallpaper Consultant: [facility] Transcribe Date/Time: Nov 21 2022 4:33P Dictated by : VELASQUEZ BENTON MD This examination was interpreted and the report reviewed and electronically signed by: VELASQUEZ BENTON MD on Nov 21 2022 4:44PM EST Results-Findings * * *Final Report* * * DATE OF EXAM: Nov 20 2022 2:16PM [facility] 0541 - CT CHEST WO IVCON / [...] No abnormality in the imaged upper abdomen. Executive Assistant To General Counsel (topogram) images: No additional findings. Labs: WBC [...] Neut (k/uL) Date Value 11/05/2024 4.65 Abs [place] (k/uL) Date Value 11/05/2024 0.65 09/25/2021 0.71 [...] which included preparing to see the patient, drjh-rd-pjih patient care, completing clinical documentation, performing a medically appropriate examination, counseling and educating the patient/family/caregiver, ordering medications, tests, or p rocedures, and communicating results to the patient/family/caregiver. documented in this encounterToledo Hospital01-21-2025 NoteHNO ID: [id number] Author: ANGELIA HART APRN.NÉSTOR Service: ? Author [...] with increase in PPI. Ran out of [employer] and has been out since the beginning [...] Blood Pressure Test Kit-Large Commonly known as: Pivot ARM BP MONITOR 1 Each once daily. [...] mass or definite lymphadenopathy within the chest. [facility] Transcribe Date/Time: Nov 21 2022 4:33P Dictated by : VELASQUEZ BENTON MD This examination was interpreted and the report reviewed and electronically signed by: VELASQUEZ BENTON MD on Nov 21 2022 4:44PM EST Results-Findings * * *Final Report* * * DATE OF EXAM: Nov 20 2022 2:16PM [facility] (more content not included)...[facility]01-16-2025 NoteHNO ID: [id number] Author: FATOUMATA OROZCO RDMS Service: ? Author Type: Regional Business Manager Type: Progress Notes Filed: 11/13/2024 09:33 Note Text: Radiology Service Progress Note PATIENT NAME: Telma Tineo DATE OF SERVICE: November 13, 2024 [...] PATIENT PRESENTS WITH AN IMPLANTABLE OR ATTACHED CERTIFIED TRAVEL COUNSELOR: No RADIOLOGY DEPARTMENT: Ultrasound PERIPHERAL IV DATA: Not applicable SIGNED BY: Fatoumata Orozco RDMS RVShelia November 13, 2024 9:32 [facility]01-13-2025 NoteHNO ID: [id number] Author: MELIZA WADSWORTH CCC-PATIENT ACCOUNTS SPECIALIST Service: ? Author Type: Speech Language Pathologist Type: Progress Notes Filed: 11/09/2024 16:07 Note Text: Episode Visit Count: Visit count could not be calculated. Make sure you are using a visit which is associated with an episode. Start of Care Date: 11/09/24 Onset Date: 10/28/24 Patient Identified by Name and Date of : Yes [facility] MODIFIED BARIUM SWALLOW [...] PO, - Small Bite/Sip, -Reduced bite size PATIENT ACCOUNTS SPECIALIST Recommendations: Diet, Swallowing Precautions, Discontinue Speech Therapy [...] 0, Mildly Thick Liquids IDDSI Level 2 (Manuel Garcia Thick), Pureed Solids IDDSI Level 4, Soft [...] 0, Mildly Thick Liquids IDDSI Level 2 (Manuel Garcia Thick), Pureed Solids IDDSI Level 4, Soft [...] pharyngeal structures, Residue with (more content not included)...[id number] History of Present illness Narrative* Meliza Wadsworth CCC-PATIENT ACCOUNTS SPECIALIST - 11/09/2024 10:43 AM EST Episode Visit Count: Visit count could not be calculated. Make sure you are using a visit which is associated with an episode. Start of Care Date: 11/09/24 Onset Date: 10/28/24 Patient Identified by Name and Date of : Yes [facility] MODIFIED BARIUM SWALLOW [...] PO, - Small Bite/Sip, -Reduced bite size PATIENT ACCOUNTS SPECIALIST Recommendations: Diet, Swallowing Precautions, Discontinue Speech Therapy [...] 0, Mildly Thick Liquids IDDSI Level 2 (Manuel Garcia Thick), Pureed Solids IDDSI Level 4, Soft [...] 0, Mildly Thick Liquids IDDSI Level 2 (Manuel Garcia Thick), Pureed Solids IDDSI Level 4, Soft [...] 4, Mildly Thick Liquids IDDSI Level 2 (Manuel Garcia Thick), Thin Liquids IDDSI Level 0 Education: [...] Demonstration TREATMENT: Performed Modified Barium Swallowing Study (94042). Evaluation: Modified Barium Swallow Evaluation (23964) Swallow / Dysphagia (97808): Skilled Intervention: Provided education related to a [...] provided this date. Billing: Modified Barium Swallow (78763) and Dysphagia Treatment (26352) Total time: 30 minutes Session Start Time : 1030 Session Stop Time : 1100 Meliza Wadsworth CCC-FLORY documented in this encounterToledo Hospital01-13-2025 History of Present illness Narrative* Albina Boles [...] PATIENT PRESENTS WITH AN IMPLANTABLE OR ATTACHED CERTIFIED TRAVEL COUNSELOR: No RADIOLOGY DEPARTMENT: General X-ray: Exam(s) Completed: GI/ Procedure(s): Modified barium swallowwith barium contrast PERIPHERAL IV DATA: Not applicable SIGNED BY: RT Oliverio(Dylan) November 09, 2024 12:34 PM documented in this encounterToledo Hospital01-13-2025 NoteHNO ID: [id number] Author: ALBINA BOLES RT(R) Service: Radiology Author [...] PATIENT PRESENTS WITH AN IMPLANTABLE OR ATTACHED CERTIFIED TRAVEL COUNSELOR: No RADIOLOGY DEPARTMENT: General X-ray: Exam(s) Completed: GI/ Procedure(s): Modified barium swallow with barium contrast PERIPHERAL IV DATA: Not applicable SIGNED BY: RT Oliverio(R) November 09, 2024 12:34 PMOhiohealth [facility] [id number] Telephone encounter Note* Telephone Encounter - Li Allison MA - 11/06/2024 12:52 PM EST Spoke with patients Timothy rayo. Informed and verbalized understanding. Endo appt already scheduled. Advised to gets labs next week. Sending to schedulers for US. Li Allison MA [facility]01-10-2025 Miscellaneous Notes* Telephone Encounter - Li Allison [...] pain? Let me know documented in this encounterToledo Hospital01-10-2025 Telephone encounter Note * Telephone Encounter - Henok Martinez MD - 11/06/2024 11:22 AM EST OK set up for endo. Call if pain worsens, light diet. Recheck lipase and follow up next week. Avoid any etoh. Get ruq us. [facility]01-10-2025 Telephone encounter Note* Telephone Encounter - Nat Marcelo RN - 11/06/2024 11:01 AM EST Patient's son Timothy notified of results and provider's instructions. Patient's son verbalizes understanding. Timothy states that the stomach pain is the same as she was having. Nat Marcelo RN [facility]01-10-2025 Telephone encounter Note* Telephone Encounter - Daina Ríos RN - 11/06/2024 9:56 AM EST Called and left a voicemail for the Patient and her daughter Sujata to call back and ask for a nurse to receive the providers message. Daina Ríos RN [facility]01-10-2025 Telephone encounter Note* Telephone Encounter - Henok Martinez MD - 11/06/2024 9:47 AM EST Sugars are way to high, see endo. Lipase or pancreatic enzyme is very mildly up. How is her stomach pain? Let me know [facility]01-09-2025 History of Present illness Narrative* Srikanth Martinez [...] PATIENT PRESENTS WITH AN IMPLANTABLE OR ATTACHED CERTIFIED TRAVEL COUNSELOR: No RADIOLOGY DEPARTMENT: General X-ray: Exam(s) Completed: Chest X-Ray PERIPHERAL IV DATA: Not applicable SIGNED BY: RT Rambo(Dylan) November 05, 2024 9:19 AM documented in this encounterToledo Hospital01-09-2025 NoteHNO ID: [id number] Author: SRIKANTH MARTINEZ RT (R) Service: Radiology [...] PATIENT PRESENTS WITH AN IMPLANTABLE OR ATTACHED CERTIFIED TRAVEL COUNSELOR: No RADIOLOGY DEPARTMENT: General X-ray: Exam(s) Completed: Chest X-Ray PERIPHERAL IV DATA: Not applicable SIGNED BY: RT Rambo(R) November 05, 2024 9:19 [facility]01-08-2025 NoteHNO ID: [id number] Author: HENOK MARTINEZ MD Service: ? Author [...] day with meals. Blood Pressure Test Kit-Large (Pivot ARM BP MONITOR) 1 Each once daily. [...] Lungs clear to auscultati (more content not included)...[facility]01-08-2025 History of Present illness Narrative* Henok [...] day with meals. Blood Pressure Test Kit-Large (Pivot ARM BP MONITOR) 1 Each once daily. [...] ICD9: V12.54, ICD10: Z86.73 -as above. 10. intermediate current use of anticoagulant therapy - ICD9: V58.61, ICD10: Z79.01 - stable. 11. Epigastric pain - ICD9: 789.06, ICD10: R10.13 - increase protonix. Consider gi. Recheck one month. - LIPASE - US ABD RIGHT UPPER QUADRANT 12.hemoptysis Get xray now and see Dr Galindo Martinez MD documented in this encounterToledo Hospital12-17-2024 Instructions* Patient Instructions* Virginia Reina APRN.CARTRIDGE FILLER - 10/13/2024 2:58 PM EST 1) Levaquin 500 mg daily for 7 days 2) Tessalon (benzonatate) 100 mg 3 x days as needed for cough 3) See Dr. Martinez in October as scheduled 4) Modified barium swallow for dysphagia documented in this encounterToledo Hospital12-17-2024 NoteHNO ID: [id number] Author: VIRGINIA REINA APRN.NÉSTOR Service: ? Author [...] day with meals. Blood Pressure Test Kit-Large (Pivot ARM BP MONITOR) 1 Each once daily. [...] - Will get swa (more content not included)...[facility] 10-13-2024 History of Present illness Narrative* Virginia Reina APRN.[facility] - 10/13/2024 2:48 PM EST This is [...] day with meals. Blood Pressure Test Kit-Large (Pivot ARM BP MONITOR) 1 Each once daily. [...] Resp 16 Wt 73.5 kg (162 lb) QuM136% BMI 32.72 kg/m PHYSICAL EXAM: Physical Exam [...] as needed for worsening/no improvement. Virginia Reina APRN.CARTRIDGE FILLER documented in this encounterToledo Hospital09-04-2024 NoteHNO ID: [id number] Author: HENOK MARTINEZ MD Service: ? Author Type: Physician Type: Progress Notes Filed: 07/01/2024 17:10 Note Text: Patient presents with: ER F/U HPI: Patient presents today for office visit for HOSPITAL/ER FOLLOW UP: Reason for visit: Multiple somatic complaints ranging from left side of head and face, left side of neck and left arm pain with chest pain. Which facility: [facility] Date of visit: 06/25/24 Diagnosis: Cervical [...] day with meals. Blood Pressure Test Kit-Large (Pivot ARM BP MONITOR) 1 Each once daily. [...] Good capillary refill. Muscu (more content not included)...[facility]09-04-20[facility] History of Present illness Narrative* Henok Martinez MD - 07/01/2024 3:52 PM EDT Patient presents with: ER F/U HPI: Patient presents today for office visit for HOSPITAL/ER FOLLOW UP: Reason for visit: Multiple somatic complaints ranging from left side of head and face, left side ofneck and left arm pain with chest pain. Which facility: [facility] Date of visit: 06/25/24 Diagnosis: Cervical [...] day with meals. Blood Pressure Test Kit-Large (Pivot ARM BP MONITOR) 1 Each once daily. [...] stable. Henok Martinez MD documented in this encounterToledo Hospital08-10-2024 History of Present illness Narrative* Srikanth Martinez [...] PATIENT PRESENTS WITH AN IMPLANTABLE OR ATTACHED CERTIFIED TRAVEL COUNSELOR: No RADIOLOGY DEPARTMENT: General X-ray: Exam(s) Completed: Rib X-Ray: Right PERIPHERAL IV DATA: Not applicable SIGNED BY: RT Rambo(R) June 06, 2024 8:00 AM documented in this encounterToledo Hospital08-10-2024 Miscellaneous Notes* Result Encounter Note - Danielle Taylor PA-C - 06/06/2024 8:00 AM EDT Please call Telma to alert her that her rib xray was normal. No sign of a fracture. documented in this encounterToledo Hospital08-10-2024 NoteHNO ID: [id number] Author: SRIKANTH MARTINEZ RT(R) Service: Radiology Author [...] PATIENT PRESENTS WITH AN IMPLANTABLE OR ATTACHED CERTIFIED TRAVEL COUNSELOR: No RADIOLOGY DEPARTMENT: General X-ray: Exam(s) Completed: Rib X-Ray: Right PERIPHERAL IV DATA: Not applicable SIGNED BY: Srikanth Martinez, RT(R) June 06, 2024 8:00 [facility]08-10-2024 Progress note* Result Encounter Note - Danielle Taylor PA-C - 06/06/2024 8:00 AM EDT Please call Telma to alert her that her rib xray was normal. No sign of a fracture. [facility] Work Phone: 1(434) 858-735108-09-2024 History of Present illness Narrative* Nancy Medley MD - 06/05/2024 11:45 AM EDT Images from the original note were not included. 0. 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 Blood Pressure Test Kit-Large (Pivot ARM BP MONITOR) 1 Each once daily. [...] edited and updated as necessary. Angelia Hart APRN.CARTRIDGE FILLER Attending Note I have personally performed a [...] Time: 3:07 PM Nancy Medley MD [facility] [place] documented in this encounterToledo Hospital08-09-2024 NoteHNO ID: [id number] Author: NANCY MEDLEY MD Service: ? Author Type: Physician Type: Progress Notes Filed: 06/05/2024 15:10 Note Text: 0. Respiratory [place] Note Patient name: Telma Tineo PCP: Henok [...] without long- term current use of insulin ([facility]) ALLERGIES Allergen Reactions Penicillins Anaphylaxis Tetracycline Rash [...] day with meals. Blood Pressure Test Kit-Large (Pivot ARM BP MONITOR) 1 Each once daily. [...] pain. No swelling (more content not included)... [facility]07-15-[facility] Telephone encounter Note* Telephone Encounter - [...] Doty LPN May 11, 2024 10:26 AM [facility]07-15-2024 Miscellaneous Notes* Telephone Encounter - Virginia Doty [...] 11, 2024 10:26 AM documented in this encounterToledo Hospital07-08-2024 Telephone encounter Note * Telephone Encounter - Li Allison MA - 05/04/2024 2:28 PM EDT Patients girma Aguirre informed and verbalized understanding. Sending to schedulers for Endo consult. Timothy will wait for callback on that. Li Allison MA [facility]07-08-2024 Miscellaneous Notes* Telephone Encounter - Li Allison [...] anemia labs including ibobt documented in this encounterToledo Hospital07-08-2024 Telephone encounter Note * Telephone Encounter - Henok Martinez MD - 05/04/2024 1:02 PM EDT Sugars are still out of control. Slightly better but still way too high. Again. Recommend endo. Referral already placed. She appears to have a new mild anemia. Recheck anemia labs including ibobt [facility]07-05-2024 History of Present illness Narrative* Juan Ernandez [...] PATIENT PRESENTS WITH AN IMPLANTABLE OR ATTACHED CERTIFIED TRAVEL COUNSELOR: No RADIOLOGY DEPARTMENT: General X-ray: Exam(s) Completed: Chest X-Ray PERIPHERAL IV DATA: Not applicable SIGNED BY: RT Gavin(R) May 01, 2024 4:35 PM documented in this encounterToledo Hospital07-05-2024 History of Present illness Narrative* Henok Martinez [...] Abs Lymph 1.00 - 4.00 k/uL 2.06 [place]% % 7.3 Abs [place] <0.87 k/uL 1.23 (H) Eosin% % 0.9 [...] mouth once daily. Blood Pressure Test Kit-Large (Pivot ARM BP MONITOR) 1 Each once daily. [...] xray. Henok Martinez MD documented in this encounterToledo Hospital07-02-2024 History of Present illness Narrative* Emma Mcnally, [...] continue care with primary care doctor and/or making machine catcher to maintain optimum levels as they are [...] 28, 2024 1:38 PM documented in this encounterToledo Hospital05-24-2024 Telephone encounter Note * Telephone Encounter - Virginia Reina APRN.CNS - 03/20/2024 12:32 PM EDT The following approved medication requests have been transmitted electronically. Requested Prescriptions Pending Prescriptions Disp Refills pantoprazole DR (PROTONIX) 40 mg tablet 90 tablet 3 Sig: Take 1 tablet by mouth once daily. Virginia Reina APRN.CNS [facility]05-24-2024 Miscellaneous Notes* Telephone Encounter - Virginia Reina APRN.CNS - 03/20/2024 12:32 PM EDT The following approved medication requests have been transmitted electronically. Requested Prescriptions Pending Prescriptions Disp Refills pantoprazole DR (PROTONIX) 40 mg tablet 90 tablet 3 Sig: Take 1 tablet by mouth once daily. Virginia Reina APRN.CHILD CAREGIVER * Telephone Encounter - Elaina Retana - [...] Thank you. Elaina Retana. documented in this encounterToledo Hospital05-24-2024 Telephone encounter Note * Telephone Encounter - [...] 05/01/2024 Please advise. Thank you. Elaina Retana. [facility]05-16-[facility]24 Telephone encounter Note* Telephone Encounter - Donna Mcnally - 03/12/2024 9:11 AM EDT 3rd call attempt, left vm, closing encounter [facility]-16[facility] Miscellaneous Notes* Telephone Encounter - Donna Mcnally [...] help patient set up endo consult in [place]. Cris Garaz Ma * Telephone Encounter - Henok Martinez [...] slightly high. Recheck labs in one week. 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 I would recommend she see our endo nurse here in [place] to help with her sugars. documented in this encounterToledo Hospital05-13-2024 Telephone encounter Note * Telephone Encounter - Wendi Mccoy PSS - 03/09/2024 8:26 AM EDT 2nd attempt: LVM for patient to schedule endocrinology appointment. [facility]05-10-2024 Telephone encounter Note* Telephone Encounter - Taco Shields RN - 03/06/2024 10:31 AM EDT Sujata Elizondo, phoned asking for results of xray and given providers message below with verbalized understanding. Daughter agreeable. [facility]05-10-2024 Miscellaneous Notes* Telephone Encounter - Taco Shields [...] make sure goes away. documented in this encounterToledo Hospital05-10-2024 Telephone encounter Note * Telephone Encounter - Amisha Barbosa - 03/06/2024 9:38 AM EDT 1st attempt LVM to schedule with endocrinology [facility]05-10-2024 Telephone encounter Note* Telephone Encounter - Henok Martinez MD - 03/06/2024 8:22 AM EDT Xray shows ?? Nodules that could be from infection. Recheck xray in one month to make sure goes away. [facility]05-09-2024 Telephone encounter Note* Telephone Encounter - Cris Garza MA - 03/05/2024 1:48 PM EDT Patient's son was made aware of the results. Patient verbalizes understanding. He is unsure if she misses any medication doses. He will check. Please help patient set up endo consult in [place]. Cris Garza Ma [facility]05-09-2024 Telephone encounter Note* Telephone Encounter - Henok [...] slightly high. Recheck labs in one week. 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 I would recommend she see our endo nurse here in [place] to help with her sugars. [facility]05-09-[facility] Telephone encounter Note* Telephone Encounter - Bharati Jackson LPN - 03/05/2024 9:59 AM EDT Daughter called and results below given. Her labs are not all back yet. They white count is up but that is likely from her recent steroids. Dr Mueller Written by Henok Martinez MD on 03/05/2024 9:56 AM E [facility]05-09-[facility]24 Miscellaneous Notes* Telephone Encounter - Bharati Jackson LPN - 03/05/2024 9:59 AM EDT Daughter called and results below given. Her labs are not all back yet. They white count is up but that is likely from her recent steroids. Dr Mueller Written by Henok Martinez MD on 03/05/2024 9:56 AM E documented in this encounterToledo Hospital05-08-2024 History of Present illness Narrative* Juan Ernandez [...] PATIENT PRESENTS WITH AN IMPLANTABLE OR ATTACHED CERTIFIED TRAVEL COUNSELOR: No RADIOLOGY DEPARTMENT: General X-ray: Exam(s) Completed: Chest X-Ray PERIPHERAL IV DATA: Not applicable SIGNED BY: RT Gavni(R) March 04, 2024 3:37 PM documented in this encounterToledo Hospital05-08-2024 History of Present illness Narrative* Henok Martinez MD - 03/04/2024 2:11 PM EDT Patient presents with: ER F/U HPI: Patient presents today for office visit for HOSPITAL/ER FOLLOW UP: Reason for visit: Cough, shortness of breath, weakness Which facility: [facility] Date of visit: 02/25/24 Diagnosis: Asthma, [...] Was seen in [facility] here in [place] on 02/07/24 and then again on 02/19/24. [...] mouth once daily. Blood Pressure Test Kit-Large (Pivot ARM BP MONITOR) 1 Each once daily. [...] HORMONE Henok Martinez MD documented in this encounterToledo Hospital05-06-2024 Telephone encounter Note * Telephone Encounter - Sun Knowles OCCA - 03/02/2024 11:47 AM EDT TC to Sujata who verbalized understanding of below. Sujata wanting to keep appointment scheduled with Dr. Martinez on Saturday. CHAY Tolbert [facility]05-06-2024 Miscellaneous Notes* Telephone Encounter - Sun Knowles [...] She states she took the Pt to [facility] and they gave her Prednisone (which [...] Please call and advise. documented in this encounterToledo Hospital05-06-2024 Telephone encounter Note * Telephone Encounter - Henok Martinez MD - 03/02/2024 11:42 AM EDT Would recommend being seen. If bad, see one of the other providers before Sat [facility]05-06-2024 Telephone encounter Note* Telephone Encounter - Daina [...] She states she took the Pt to [facility] and they gave her Prednisone (which [...] in was Saturday03/04/24. Please call and advise. [facility]04-30[facility]2024 Discharge summary Author Gabe Foster [facility] February 25, 2024 6:12pm Note Date/Time February 25, 2024 4:5 1pm [facility] Medical Records Department [address] [place] [address] Emergency Department Summary 02/25/24 MR#: [id number] Acct: [id number] Name: TELMA TINEO Rep #:[id number] : 1940 83 From: Gabe Foster DO PCP: Dr. Henok Martinez MD Status:REG E R Location: ED [facility] History of Present Illness Chief Complaint: [...] of asthma she states since . [facility] Medical History Asthma Complaint of melena Diabetes [...] 76.3 H Lymph % (Auto) 9.0 L [place] % (Auto) 13.1 H Eos % (Auto) [...] Clarity Clear Urine pH 7.0 Ur Specific [place] 1.005 Urine Protein 30 H Urine Glucose [...] your Primary Care Provider. Call [facility] ([phone]) or report to the closest Emergency Room. Call 911 if necessary. 02/25/241811 <Electronically signed by Gabe Foster DO> Cosigner Signature (if applicable): CC: Dr. Henok Martinez MD ~ Signed [facility] Work Phone: 1(139) 135-430104-26-2024 Telephone encounter Note* Telephone Encounter - Shabnam Ruiz LPN - 02/21/2024 4:40 PM EDT Daughter notified. [place] [address]-26-2024 Miscellaneous Notes* Telephone Encounter - Shabnam Ruiz [...] now. Using OTC Vicks, Tylenol, Emergen-C, Mucinex, [place], honey, drinking tea. Will need call daughter [...] during call. Please advise daughter Sujata at [phone] Thank you. documented in this encounterToledo Hospital04-26-2024 Telephone encounter Note * Telephone Encounter - Henok Martinez MD - 02/21/2024 4:24 PM EDT Urgent care note said one day. Will add meds [facility]04-26-20[facility] Telephone encounter Note* Telephone Encounter - Shabnam Ruiz LPN - 02/21/2024 4:18 PM EDT Patient daughter states that she has had symptoms for a week now. Using OTC Vicks, Tylenol, Emergen-C, Mucinex, [place], honey, drinking tea. Will need call daughter back. [facility]04-26-[facility] Telephone encounter Note* Telephone Encounter - Henok [...] anything down can always be seen again. [facility]04-26-2024 Telephone encounter Note* Telephone Encounter - Fernanda [...] but has not checked it. Uses [facility] [place]. Reminded daughter that patient needs to seek ER for any severe sx's as dicussed during call. Please advise daughter Sujata at [phone] Thank you. [facility]04-24-[facility] History of Present illness Narrative* Lana Alanis APRN.CARTRIDGE FILLER - 02/19/2024 1:03 PM EDT CC: Patient [...] mouth once daily. Blood Pressure Test Kit-Large (Pivot ARM BP MONITOR) 1 Each once daily. [...] plan. Lana Alanis APRN.NÉSTOR documented in this encounterToledo Hospital04-12-2024 History of Present illness Narrative* Fazal Law [...] mouth once daily. Blood Pressure Test Kit-Large (Pivot ARM BP MONITOR) 1 Each once daily. [...] of care. This note was generated using [employer] software. It may contain errors in wording, punctuation, or spelling. Fazal Law APRN.CARTRIDGE FILLER documented in this encounterToledo Hospital02-29-2024 Miscellaneous Notes* Telephone Encounter - Virginia Doty [...] you. Virginia Doty LPN. documented in this encounterToledo Hospital02-19-2024 History of Present illness Narrative* Henok Martinez MD - 12/16/2023 10:07 AM EST Patient [...] mouth twice daily. Blood Pressure Test Kit-Large (Pivot ARM BP MONITOR) 1 Each once daily. [...] A1C Henok Martinez MD documented in this encounterToledo Hospital11-22-2023 Miscellaneous Notes* Telephone Encounter - Taco Muller [...] a day with meals. Authorizing Provider: Taco MULLER PA-C documented in this encounterToledo Hospital11-09-2023 History of Present illness Narrative* Taco Muller PA-C - 09/05/2023 3:20 PM EST 83 year old female new to me here with son, with c/o 3 month follow-up rescheduled from Dr. 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 Sarabia box person After stroke had trouble communicating, had trouble [...] Lymph 1.00 - 4.00 k/uL 2.01 2.00 [place]% % 8.4 8.4 Abs [place] <0.87 k/uL 0.71 0.73 Eosin% % 1.7 [...] complication (hcc) Mild intermittent asthma without complication Travel Registered Nurse Oncology: Dr. Nancy Medley, Danielle Brown, PA-C. 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 [...] - ICD9: 212.7, ICD10: D15.1 noted 5. intermediate current use of anticoagulant therapy - ICD9: [...] data. Taco Muller PA-C documented in this encounterToledo Hospital10-09-2023 Miscellaneous Notes* Telephone Encounter - Lena Lopez [...] 1:09 PM EDT Script sent. Clarita Boggs APRN.CARTRIDGE FILLER * Telephone Encounter - Daina Ríos RN [...] you. Daina Ríos, RN documented in this encounterToledo Hospital08-29-2023 History of Present illness Narrative* Emma Mcnally, [...] complication, without long-term current use of insulin ([facility]) Monitor 4. Pseudophakia of both eyes 5. Presbyopia Monitor Follow-up in 10 months for complete diabetic eye exam Emma Mcnally OD June 25, 2023 10:12 AM documented in this encounterToledo Hospital08-29-2023 Instructions* Patient Instructions* Emma Mcnally, OD - 06/25/2023 10:06 AM EDT Use warm compresses daily Continue: Systane Complete or Refresh Relieva 2-3 times daily Systane, Refresh or Blink gel nightly before bed in both eyes documented in this encounterToledo Hospital07-24-2023 History of Past illness Narrative* Problem Noted Date Diagnosed Date Resolved Date Candidiasis of vagina 05/20/2023 05/20/20232022 Neck pain 05/20/2023 05/20/2023 05/20/2023 documented as of this encounter (statuses as of 06/25/2023) [facility] of Past illness Narrative* Problem Noted Date Diagnosed Date Resolved Date Candidiasis of vagina 05/20/2023 05/20/20232022 Neck pain 05/20/2023 05/20/2023 05/20/2023 documented as of this encounter (statuses as of 08/06/2023) [facility] of Past illness Narrative* Problem Noted Date Diagnosed Date Resolved Date Candidiasis of vagina 05/20/2023 05/20/20232022 Neck pain 05/20/2023 05/20/2023 05/20/2023 documented as of this encounter (statuses as of 09/06/2023) [facility] of Past illness Narrative* Problem Noted Date Diagnosed Date Resolved Date Candidiasis of vagina 05/20/2023 05/20/20232022 Neck pain 05/20/2023 05/20/2023 05/20/2023 documented as of this encounter (statuses as of 09/18/2023) [facility] of Past illness Narrative* Problem Noted Date Diagnosed Date Resolved Date Candidiasis of vagina 05/20/2023 05/20/20232022 Neck pain 05/20/2023 05/20/2023 05/20/2023 documented as of this encounter (statuses as of 12/16/2023) [facility] of Past illness Narrative* Problem Noted Date Diagnosed Date Resolved Date Candidiasis of vagina 05/20/2023 05/20/20232022 Neck pain 05/20/2023 05/20/2023 05/20/2023 documented as of this encounter (statuses as of 12/27/2023) [facility] of Past illness Narrative* Problem Noted Date Diagnosed Date Resolved Date Candidiasis of vagina 05/20/2023 05/20/20232022 Neck pain 05/20/2023 05/20/2023 05/20/2023 documented as of this encounter (statuses as of 02/07/2024) [facility] [facility] April 22, 2023 8:09pm Note Date/Time April 22, 2023 8:09 pm [facility] Medical Records Department [address] [place] [address] Emergency Department Summary 04/22/23 MR#: [id number] Acct: [id number] Name: TELMA TINEO Rep #:[id number] : 1940 82 From: Gabe Foster DO [...] history of stroke in the past. [facility] Medical History Asthma Complaint of melena Diabetes [...] % (Auto) 65.0 Lymph % (Auto) 23.0 [place] % (Auto) 9.0 Eos % (Auto) 2.2 [...] your Primary Care Provider. Call [facility] ([phone]) or report to the closest Emergency Room. Call 911 if necessary. 04/22/232008 <Electronically signed by Gabe Foster DO> Cosigner Signature (if applicable): CC: Dr. Henok Martinez MD ~ Signed [facility] Work Phone: 1(860) 730-710706-19-2023 Instructions* Patient Instructions* Clarita Boggs APRN.CARTRIDGE FILLER - 04/15/2023 1:29 PM EDT Stop the hydrochlorothiazide. Increase the metolprolol to 75 mg (1 1/2 tablets) twice daily. Recheck BP in 2-3 weeks. documented in this encounterToledo Hospital06-19-2023 History of Present illness Narrative* Clarita Boggs [...] Medications Medication Sig Blood Pressure Test Kit-Large (Pivot ARM BP MONITOR) 1 Each once daily. [...] of the risks of HTN -- including [place], CVA, . Discussed options and she is [...] as needed for worsening/no improvement. Clarita Boggs APRN.CARTRIDGE FILLER documented in this encounterToledo Hospital06-05-2023 History of Present illness Narrative* Henok Martinez MD - 04/01/2023 4:00 PM EDT Patient presents with: ER F/U HPI: Patient presents today for office visit for follw up. HOSPITAL/ER FOLLOW UP: Reason for visit: HTN Which facility: [facility] Date of visit: 03/31/23 Diagnosis: HTN [...] A1C Henok Martinez MD documented in this encounterToledo Hospital05-01-2023 Instructions* Patient Instructions* Sun Beal, ROSIO - [...] beverages, no juice 7 Use healthy fats: [place] oil, canola oil, walnuts, ground flaxseed or [...] choices when eating out documented in this encounterToledo Hospital05-01-2023 History of Present illness Narrative* Sun Beal [...] beverages, no juice 7 Use healthy fats: [place] oil, canola oil, walnuts, ground flaxseed or [...] Vitamins/Supplements - MVI, May go out for Armenian Plain salads and veggies Occ beans, potatoes, [...] 2023 TIME: 1:45 PM documented in this encounterToledo Hospital04-25-2023 Miscellaneous Notes* Telephone Encounter - Fernanda Macario [...] cream. Sadia Ramsey APRN.CNP documented in this encounterToledo Hospital04-21-2023 History of Present illness Narrative* Emma Mcnally, OD - 02/15/2023 4:27 PM EDT 1. Type 2 diabetes mellitus without complication, without long-term current use of insulin (HCC) Risk of diabetic changes and vision loss can be minimized by tight control of blood sugar, blood pressure, and cholesterol levels. 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 Cassy Evans LPN documented in this encounterToledo Hospital01-27-2023 History of Present illness Narrative* Cassy Evans [...] be contacted after review by PCP. Cassy Evasn LPN documented in this encounterToledo Hospital01-26-2023 History of Present illness Narrative* Nancy Medley MD - 11/22/2022 8:00 AM EST . [facility] [place] Note Patient name: Telma Tineo PCP: Henok [...] DATE OF EXAM: Nov 20 2022 2:16PM [facility] 0541 - CT CHEST WO IVCON / [...] complication, without long-term current use of insulin ([facility]) ALLERGIES Allergen Reactions Penicillins Anaphylaxis Tetracycline Rash [...] -RTC 6 months or sooner with problems Nacny Medley MD [facility] [place] documented in this encounterToledo Hospital01-24-2023 History of Present illness Narrative* Bobo Parham [...] 20, 2022 3:59 PM documented in this encounterToledo Hospital01-20-2023 Procedure note* JOSÉ MIGUEL Russell - 11/16/2022 [...] 2022 TIME: 1:45 PM documented in this encounterToledo Hospital01-20-2023 History of Present illness Narrative* Nancy Medley MD - 11/16/2022 1:30 PM EST Images from the original note were not included. . [facility] [place] Note Patient name: Telma Tineo PCP: Henok [...] Abs Lymph 1.00 - 4.00 k/uL 2.00 [place]% % 8.4 Abs [place] <0.87 k/uL 0.73 Eosin% % 2.0 Abs [...] Abs Lymph 1.00 - 4.00 k/uL 2.00 [place]% % 8.4 Abs [place] <0.87 k/uL 0.73 Eosin% % 2.0 Abs [...] complication, without long-term current use of insulin ([facility]) ALLERGIES Allergen Reactions Penicillins Anaphylaxis Tetracycline Rash [...] uncomplicated -See #1 Nancy Medley MD [facility] [place] documented in this encounterToledo Hospital01-20-2023 History of Present illness Narrative* JOSÉ MIGUEL Russell - 11/16/2022 1:11 PM EST PULM FUNCTION SMARTBLOCK: Provider: Nancy Medley MD Assisting Tech: JOSÉ MIGUEL Russell Exhaled Nitric Oxide: 1 documented in this encounterToledo Hospital01-20-2023 Nurse Note* Gloria Cordoba LPN - 11/16/2022 1:08 PM EST Intake information documented in the prior visit with JOSÉ MIGUEL Russell today. documented in this encounterToledo Hospital12-30-2022 History of Present illness Narrative* Henok Martinez [...] TABLET Henok Martinez MD documented in this encounterToledo Hospital12-27-2022 Miscellaneous Notes* Telephone Encounter - [place] [facility] - 10/23/2022 3:56 PM EST Patient has been identified by name and date of : Yes Requested Prescriptions Pending Prescriptions Disp Refills apixaban (ELIQUIS) 2.5 mg tab(s) 60 tablet 3 Sig: Take 1 tablet by mouth twice daily. RX INSTRUCTIONS: Patient aware RX will be sent to pharmacy. No need to notify patient. [place] [facility] documented in this encounterToledo Hospital12-19-2022 Miscellaneous Notes* Telephone Encounter - Daina Ríos [...] Call if breathing worsens. documented in this encounterToledo Hospital12-16-2022 History of Present illness Narrative* JOSÉ MIGUEL Russell - 10/12/2022 2:32 PM EST PULM FUNCTION SMARTBLOCK: Provider: Henok Martinez MD Assisting Tech: JOSÉ MIGUEL Russell Spirometry w/BD: 1 DLCO: 1 LV - Box: 1 documented in this encounterToledo Hospital12-15-2022 Miscellaneous Notes* Telephone Encounter - Alison Matos [...] holidays. Orders changed to lodi Hailey Castro Gis Consultant documented in this encounterToledo Hospital12-05-2022 History of Present illness Narrative* Henok Martinez [...] Abs Lymph 1.00 - 4.00 k/uL 2.00 [place]% % 8.4 Abs [place] <0.87 k/uL 0.73 Eosin% % 2.0 Abs [...] (DLCO) Henok Martinez MD documented in this encounterToledo Hospital11-21-2022 Miscellaneous Notes* Telephone Encounter - Li Allison [...] then developed the drycough. Requesting alternative to [facility] pharmacy. Advise. Li Allison * Telephone Encounter [...] the pharmacy. Please contact Girma Aguirre at [phone]. Laura Barreto documented in this encounterToledo Hospital11-09-2022 History of Present illness Narrative* Monet Calvo [...] has had previous colonoscopy 4 years (in [place]) She is on eliquis for history of [...] entered by the nurse and reviewed by mn Nursing Notes: Deborah Montiel LPN 09/05/2022 1:47 [...] na Last Colonoscopy: 4 years ago in [place] Deborah Montiel LPN PHYSICAL EXAMINATION: General: The [...] patient was offered a surgery[facility]procedure [facility]. The provider and patient have discussed [...] patient will be scheduled for colonoscopy at [facility]. Monet Calvo MD documented in this encounterToledo Hospital11-09-2022 Instructions* Patient Instructions* Monet Calvo MD - [...] If you do not have a responsible pile driver operator barge mounted (family member or friend) with you to [...] your exam. 2 09/2019 documented in this encounterToledo Hospital11-09-2022 Nurse Note* Deborah Montiel LPN - 09/05/2022 [...] na Last Colonoscopy: 4 years ago in [place] Deborah Montiel LPN documented in this encounterToledo Hospital09-19-2022 Miscellaneous Notes* Telephone Encounter - Cris Garza [...] RX INSTRUCTIONS: Patient had to change to [facility] and needs 90 days also. Patient aware RX will be sent to pharmacy. No need to notify patient. Dahlia Franco Pss documented in this encounterToledo Hospital07-22-2022 Miscellaneous Notes* Telephone Encounter - Taco Shields [...] you. Taco Shields RN documented in this encounterToledo Hospital06-27-2022 Miscellaneous Notes* Telephone Encounter - Taco Shields [...] covid s/s, daughter agreeable to contact [facility] for a virtual visit. documented in this encounterToledo Hospital04-05-2022 Miscellaneous Notes* Telephone Encounter - Kerline Hogan LPN - 01/30/2022 2:35 PM EDT A 90 day supply was dispensed on 01/26/22 at [facility] pharmacy. Janet Hogan LPN * Telephone Encounter [...] Name:[employer] Phone number: Patient ID number:[id number] Pharmacy Name: [facility] Telephone number: [phone] * Telephone Encounter - Cris Garza Ma - 01/29/2022 10:58 AM EDT Left message for patient to return call. Cris Garza Ma * Telephone Encounter - Henok Martinez MD - 01/29/2022 8:06 AM EDT Sugars is still high. Make sure she picks up the metformin and continues the med. Lets recheck a1c in three months documented in this encounterToledo Hospital04-01-2022 History of Present illness Narrative* Henok Martinez [...] Abs Lymph 1.00 - 4.00 k/uL 2.01 [place]% % 8.4 Abs [place] <0.87 k/uL 0.71 Eosin% % 1.7 Abs [...] above. Henok Martinez MD [facility]* Diagnosis Onset Date Resolution Status History of TIA (transient ischemic attack) acute Mild cognitive impairment [place] Transient ischemic attack March, [place] [facility] Work Phone: Evaluation note* Diagnosis History of CVA (cerebrovascular accident)- Primary Transient ischemic attack (TIA), 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 deficits Type 2 diabetes mellitus without complication, without long-term current use of insulin (HCC) Primary hypertension Unspecified essential hypertension Atrial myxoma Benign neoplasm of heart [facility] Diagnosis Type 2 diabetes mellitus without complication, without long-term current use of insulin (HCC)- Primary [facility] Diagnosis Type 2 diabetes mellitus without complication, without long-term current use of insulin (HCC) [facility] Diagnosis Primary hypertension Unspecified essential hypertension [facility] Diagnosis Change in bowel habits- Primary Other symptoms involving digestive system [facility] Diagnosis Primary hypertension- Primary Unspecified essential hypertension [facility]* Diagnosis 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 Primary hypertension Unspecified essential hypertension Type 2 diabetes mellitus without complication, without long-term current use of insulin (HCC) History of CVA (cerebrovascular accident) Transient ischemic attack (TIA), 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 deficits Mild intermittent asthma without complication Unspecified asthma [facility] Diagnosis Mild intermittent asthma without complication Unspecified asthma [facility] Diagnosis Mild intermittent asthma without complication Unspecified asthma [facility] Diagnosis Cough, unspecified type- Primary Primary hypertension Unspecified essential hypertension [facility] Diagnosis Chronic cough Cough [facility]* Diagnosis Chronic cough- Primary Cough Abnormal chest x-ray Other nonspecific abnormal finding of lung field Mild persistent asthma without complication Unspecified asthma [facility]* Diagnosis Bronchiectasis without complication (HCC)- Primary Bronchiectasis without acute exacerbation Mild intermittent asthma without complication Unspecified asthma [facility] Diagnosis Primary hypertension- Primary Unspecified essential hypertension documented in this encounter [facility] note* Diagnosis Primary hypertension- Primary Unspecified essential [...] complication Unspecified asthma [facility] Diagnosis Vaginal bleeding- Primary Other specified noninflammatory disorder of vagina Pelvic and perineal pain Unspecified symptom associated with female genital organs History of uterine cancer Personal history of malignant neoplasm of other parts of uterus [facility]* Diagnosis Type 2 diabetes mellitus without complication, without long-term current use of insulin (HCC)- Primary Pseudophakia of both eyes Lens replaced by other means Presbyopia documented in this encounter [facility] note* Diagnosis Obesity, Class I, BMI 30-34.9- Primary Obesity, unspecified Type 2 diabetes mellitus without complication, without long-term current use of insulin (HCC) Dietary counseling Dietary surveillance and counseling documented in this encounter [facility] note* Diagnosis Onset Date Resolution Status Atrial fibrillation acute Chest pain acute Essential hypertension chron ic Right atrial mass chronic [facility] Work Phone: Evaluation note* Diagnosis Primary hypertension- Primary Unspecified essential hypertension Type 2 diabetes mellitus without complication, without long-term current use of insulin (HCC) documented in this encounter [facility] note* Diagnosis Primary hypertension- Primary Unspecified essential hypertension History of CVA (cerebrovascular accident) Transient ischemic attack (TIA), 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 deficits Atrial fibrillation, unspecified type (HCC) documented in this encounter [facility] note* Diagnosis 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 Tear film insufficiency, unspecified PCO (posterior capsular opacification), left After-cataract, unspecified Type 2 diabetes mellitus without complication, without long-term current use of insulin (HCC) Pseudophakia of both eyes Lens replaced by other means Presbyopia [facility]* Diagnosis Pelvic and perineal pain Unspecified symptom associated with female genital organs [facility] Diagnosis Chronic cough Cough Abnormal chest x-ray Other nonspecific abnormal finding of lung field [facility]* Diagnosis Cerebrovascular accident (CVA), unspecified mechanism (HCC)- Primary Atrial fibrillation, unspecified type (HCC) Primary hypertension Unspecified essential hypertension Atrial myxoma Benign neoplasm of 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 Long-term (current) [...] pain Otalgia, unspecified [facility] Diagnosis Type 2 diabetes mellitus without complication, without long-term current use of insulin (HCC)- Primary [facility]* Diagnosis Cerebrovascular accident (CVA), unspecified mechanism [...] of insulin (HCC) [facility] Diagnosis Primary hypertension Unspecified essential hypertension [facility]* Diagnosis Diarrhea, unspecified type- Primary documented in this encounter [facility] note* Diagnosis Sore throat- Primary Acute pharyngitis URI, acute Acute upper respiratory infections of unspecified site [facility]* Diagnosis Onset Date Resolution Status Atrial fibrillation acute Essential hypertension chron ic Right atrial mass [facility] Work Phone: Evaluation note* Diagnosis Type 2 diabetes mellitus without complication, without long-term current use of insulin (HCC)- Primary Mild intermittent asthma without complication Unspecified asthma Bronchiectasis without complication (HCC) Bronchiectasis without acute exacerbation Bronchitis Bronchitis, not specified as acute or chronic Weight loss Loss of weight documented in this encounter [facility] note* Diagnosis Abnormal x-ray- Primary Other nonspecific (abnormal) findings on radiological and other examinations of body structure documented in this encounter [facility] note* Diagnosis Type 2 diabetes mellitus without complication, without long-term current use of insulin (HCC)- Primary Leukocytosis, unspecified type Hyperkalemia Hyperpotassemia documented in this encounter [facility] note* Diagnosis 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 Tear film insufficiency, unspecified PCO (posterior capsular opacification), left After-cataract, unspecified Type 2 diabetes mellitus without complication, without long-term current use of insulin ([facility]) Pseudophakia of both eyes Lens replaced by other means Presbyopia documented in this encounter [facility] note* Diagnosis Primary hypertension- Primary Unspecified essential hypertension Type 2 diabetes mellitus without complication, without long-term current use of insulin (HCC) Mild intermittent asthma without complication Unspecified asthma documented in this encounter [facility] note* Diagnosis History of CVA (cerebrovascular accident) Transient ischemic attack (TIA), 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 deficits documented in this encounter [facility] note* Diagnosis Anemia, unspecified type- Primary documented in this encounter [facility] note* Diagnosis Mild intermittent asthma without complication- Primary Unspecified asthma Bronchiectasis without complication (HCC) Bronchiectasis without acute exacerbation Rib pain on right side Chest pain, unspecified Poorly controlled type 2 diabetes mellitus (HCC)- Primary Type II or unspecified type diabetes mellitus without mention of complication, not stated as uncontrolled documented in this encounter [facility] note* Diagnosis Primary hypertension- Primary Unspecified essential [...] without residual deficits [facility]* Diagnosis Primary hypertension- Primary Unspecified essential hypertension History of CVA (cerebrovascular accident) Transient ischemic attack (TIA), 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 deficits Atrial fibrillation, unspecified type (HCC) Abnormal x-ray Other nonspecific (abnormal) findings on radiological and other examinations of body structure [facility]* Diagnosis Primary hypertension- Primary Unspecified essential hypertension History of CVA (cerebrovascular accident) Transient ischemic attack (TIA), 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 deficits Atrial fibrillation, unspecified type (HCC) Rib pain on right side Chest pain, unspecified [facility]* Diagnosis Primary hypertension- Primary Unspecified essential hypertension History of CVA (cerebrovascular accident) Transient ischemic attack (TIA), 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 deficits Atrial fibrillation, unspecified type (HCC) Bronchitis Bronchitis, not specified as acute or chronic [facility]* Diagnosis Cough, unspecified type documented in this encounter [facility] note* Diagnosis Primary hypertension- Primary Unspecified essential hypertension History of CVA (cerebrovascular accident) Transient ischemic attack (TIA), 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 deficits Atrial fibrillation, unspecified type (HCC) Acute bronchitis, unspecified organism- Primary Oropharyngeal dysphagia Dysphagia, oropharyngeal phase [facility]* Diagnosis Primary hypertension- Primary Unspecified essential [...] (TIA), 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 deficits 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 Long-term (current) use of anticoagulants Epigastric pain Abdominal pain, epigastric Hemoptysis Hemoptysis, unspecified documented in this encounter [facility] note* Diagnosis Primary hypertension- Primary Unspecified essential hypertension History of CVA (cerebrovascular accident) Transient ischemic attack (TIA), 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 deficits Atrial fibrillation, unspecified type (HCC) Hemoptysis Hemoptysis, unspecified [facility]* Diagnosis Primary hypertension- Primary Unspecified essential hypertension History of CVA (cerebrovascular accident) Transient ischemic attack (TIA), 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 deficits Atrial fibrillation, unspecified type (HCC) Dysphagia, oropharyngeal phase- Primary documented in this encounter [facility] note* Diagnosis Primary hypertension- Primary Unspecified essential hypertension History of CVA (cerebrovascular accident) Transient ischemic attack (TIA), 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 deficits Atrial fibrillation, unspecified type (HCC) Oropharyngeal dysphagia Dysphagia, oropharyngeal phase documented in this encounter [facility] note* Diagnosis Primary hypertension- Primary Unspecified essential hypertension History of CVA (cerebrovascular accident) Transient ischemic attack (TIA), 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 deficits Atrial fibrillation, unspecified type (HCC) Epigastric pain Abdominal pain, epigastric Elevated lipase Other nonspecific abnormal serum enzyme levels documented in this encounter [facility] note* Diagnosis Primary hypertension- Primary Unspecified essential [...] serum enzyme levels documented in this encounter [facility] note* Diagnosis Primary hypertension- Primary Unspecified essential hypertension History of CVA (cerebrovascular accident) Transient ischemic attack (TIA), 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 deficits Atrial fibrillation, unspecified type (HCC) Mild persistent asthma without complication- Primary Unspecified asthma Cough, unspecified type Hemoptysis Hemoptysis, unspecified Bronchiectasis without complication (HCC) Bronchiectasis without acute exacerbation Dysphagia, unspecified type documented in this encounter [facility] note* Diagnosis Primary hypertension- Primary Unspecified essential hypertension History of CVA (cerebrovascular accident) Transient ischemic attack (TIA), 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 deficits Atrial fibrillation, unspecified type (HCC) Primary hypertension Unspecified essential hypertension documented in this encounter [facility] note* Diagnosis Primary hypertension- Primary Unspecified essential hypertension History of CVA (cerebrovascular accident) Transient ischemic attack (TIA), 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 deficits Atrial fibrillation, unspecified type (HCC) Type 2 diabetes mellitus without complication, without long-term current use of insulin (HCC)- Primary [facility]* Diagnosis Primary hypertension- Primary Unspecified essential hypertension History of CVA (cerebrovascular accident) Transient ischemic attack (TIA), 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 deficits Atrial fibrillation, unspecified type (HCC) 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)- Primary Malignant neoplasm of head of pancreas documented in this encounter [facility] note* Diagnosis Onset Date Resolution Status Admit [...] h hyperglycemia acute January 10, 2025 12:57am [facility] Work Phone: Evaluation note* Diagnosis Primary hypertension- Primary Unspecified essential hypertension History of CVA (cerebrovascular accident) Transient ischemic attack (TIA), 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 deficits Atrial fibrillation, unspecified type (HCC) 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) Malignant neoplasm of head of pancreas documented in this encounter [facility] note* Diagnosis Primary hypertension- Primary Unspecified essential hypertension History of CVA (cerebrovascular accident) Transient ischemic attack (TIA), 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 deficits Atrial fibrillation, unspecified type (HCC) Encounter for education- Primary Counseling NOS 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) Malignant neoplasm of head of pancreas documented in this encounter [facility] note* Diagnosis Primary hypertension- Primary Unspecified essential hypertension History of CVA (cerebrovascular accident) Transient ischemic attack (TIA), 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 deficits Atrial fibrillation, unspecified type (HCC) 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)- Primary Malignant neoplasm of head of pancreas documented in this encounter [facility] note* Diagnosis Primary hypertension- Primary Unspecified essential hypertension History of CVA (cerebrovascular accident) Transient ischemic attack (TIA), 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 deficits Atrial fibrillation, unspecified type (HCC) Type 2 diabetes mellitus with hyperglycemia, with long-term current use of insulin (HCC)- Primary 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) Malignant neoplasm of head of pancreas documented in this encounter [facility] note* Diagnosis Primary hypertension- Primary Unspecified essential hypertension History of CVA (cerebrovascular accident) Transient ischemic attack (TIA), 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 deficits Atrial fibrillation, unspecified type (HCC) Pancreatic adenocarcinoma (HCC)- Primary Malignant 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, part unspecified intermediate current use of anticoagulant therapy Long-term (current) [...] head of pancreas documented in this encounter [facility] note* Diagnosis Primary hypertension- Primary Unspecified essential hypertension History of CVA (cerebrovascular accident) Transient ischemic attack (TIA), 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 deficits Atrial fibrillation, unspecified type (HCC) Pancreatic adenocarcinoma (HCC)- Primary Malignant 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, part unspecified 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) Malignant neoplasm of head of pancreas [facility] Diagnosis Primary hypertension- Primary Unspecified essential [...] head of pancreas [facility] Primary hypertension- Primary Unspecified [...] pancreas, part unspecified documented in this encounter [facility] note* Diagnosis Primary hypertension- Primary Unspecified essential hypertension History of CVA (cerebrovascular accident) Transient ischemic attack (TIA), 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 deficits Atrial fibrillation, unspecified type (HCC) RUQ pain- Primary Abdominal pain, right upper quadrant documented in this encounter [facility] note* Diagnosis Primary hypertension- Primary Unspecified essential [...] (HCC) 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 Long-term (current) use of anticoagulants Type 2 diabetes mellitus with hyperglycemia, with long-term current use of insulin (HCC) documented in this encounter [facility] note* Diagnosis Primary hypertension- Primary Unspecified essential hypertension History of CVA (cerebrovascular accident) Transient ischemic attack (TIA), 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 deficits Atrial fibrillation, unspecified type (HCC) Type 2 diabetes mellitus without complication, without long-term current use of insulin (HCC) documented in this encounter [facility] note* Diagnosis Primary hypertension- Primary Unspecified essential hypertension History of CVA (cerebrovascular accident) Transient ischemic attack (TIA), 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 deficits Atrial fibrillation, unspecified type (HCC) Primary hypertension Unspecified essential hypertension Type 2 diabetes mellitus without complication, without long-term current use of insulin (HCC) documented in this encounter [facility] note* Diagnosis Primary hypertension- Primary Unspecified essential hypertension History of CVA (cerebrovascular accident) Transient ischemic attack (TIA), 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 deficits Atrial fibrillation, unspecified type (HCC) History of CVA (cerebrovascular accident) Transient ischemic attack (TIA), 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 deficits Type 2 diabetes mellitus with hyperglycemia, with long-term current use of insulin (HCC) [facility] Diagnosis Primary hypertension- Primary Unspecified essential hypertension History of CVA (cerebrovascular accident) Transient ischemic attack (TIA), 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 deficits Atrial fibrillation, unspecified type (HCC) 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)- Primary Malignant neoplasm of head of pancreas Adenocarcinoma of head of pancreas (HCC) [facility] Diagnosis Primary hypertension- Primary Unspecified essential hypertension History of CVA (cerebrovascular accident) Transient ischemic attack (TIA), 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 deficits Atrial fibrillation, unspecified type (HCC) 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) Malignant neoplasm of head of pancreas Adenocarcinoma of head of pancreas (HCC) [facility] Additional Instructions Your work-up today showed no signs of endorgan damage which is damage to your brain heart or kidneys from the elevated blood pressure. Continue all of your medications as previously directed and follow-up with your family doctor [facility]: Reason for referral (narrative)* Outpatient Procedure (Routine) - Authorized Specialty Diagnoses / Procedures Referred By Kelli bass Referred To Contact [facility] Diagnoses Change in bowel habits Procedures COLONOSCOPY DIAGNOSTIC COLONOSCOPY DIAGNOSTIC COLONOSCOPY DIAGNOSTIC COLONOSCOPY FLX DX W/COLLJ SPEC WHEN PFRMD Monet Calvo MD [address] [place] [address] [facility] [place] [address] [place] [address] Referral ID Status Reason Start Date Expiration Date Visits Requested Visits Authorized [id number] Authorized Auto-Generat ed Referral 09/05/2022 09/05/2023 1 1 [facility] for referral (narrative)* Outpatient Procedure (Routine) - Authorized Specialty Diagnoses / Procedures Referred By Contjosh t Referred To Contact [facility] Diagnoses Mild intermittent asthma without complication Procedures LUNG DIFFUSION CAPACITY (DLCO) DIFFUSING CAPACITY Henok Martinez MD [address] [place] [address] [facility] [place] [address] [place] [id number] Referral ID Status Reason Start Date Expiration Date Visits Requested Visits Authorized [id number] Authorized Auto-Generat ed Referral 10/01/2022 10/31/2023 1 1 * Outpatient Procedure (Routine) - Authorized Specialty Diagnoses / Procedures Referred By Contac t Referred To [facility] Diagnoses Mild intermittent asthma without complication Procedures LUNG VOLUMES Henok Martinez MD [address] [place] [address] [address] Referral ID Status Reason Start Date Expiration Date Visits Requested Visits Authorized [id number] Authorized Auto-Generat ed Referral 10/01/2022 10/31/2023 1 1 * Outpatient Procedure (Routine) - Authorized Specialty Diagnoses / Procedures Referred By Contac t Referred To Contact [facility] Diagnoses Mild intermittent asthma without complication Procedures SPIROMETRY - BASELINE AND POST DILATOR BRNCDILAT RSPSE SPMTRY PRE&POST-BRNCDILAT ADMN Henok Martinez MD [address] [place] [address] [address] Referral ID Status Reason Start Date Expiration Date Visits Requested Visits Authorized [id number] Authorized Auto-Generat ed Referral 10/01/2022 10/31/2023 1 1 [facility] Diagnostic Procedure Only (Routine) - Authorized Specialty Diagnoses / Procedures Referred By Contac t Referred To Contact XR IMAGING Diagnoses Rib pain on right side Procedures XR RIBS/CHEST 3V AP RIB/OBLS/CXR RIGHT RADEX RIBS UNI W/POSTEROANT CH MINIMUM 3 VIEWS Nancy Medley MD [address] [place] [address] Xr Imaging [facility] Referral ID Status Reason Start Date Expiration Date Visits Requested Visits Authorized [id number] Authorized Auto-Generat ed Referral 06/05/2024 07/05/2025 1 1 [facility] for referral (narrative)* Diagnostic Procedure Only (Routine) - Closed Specialty Diagnoses / Procedures Referred By Contac t Referred To Contact XR IMAGING Diagnoses Rib pain on right side Procedures XR RIBS/CHEST 3V AP RIB/OBLS/CXR RIGHT RADEX RIBS UNI W/POSTEROANT CH MINIMUM 3 VIEWS Nancy Medley MD [address] [place] [address] [place] [address] Referral ID Status Reason Start Date Expiration Date V isits Requested Visits Authorized [id number] Closed Auto-Generate d Referral 06/05/2024 07/05/2025 1 1 [facility] for referral (narrative)* Diagnostic Procedure Only (Routine) - Authorized Specialty Diagnoses / Procedures Referred By Contac t Referred To Contact XR IMAGING Diagnoses Oropharyngeal dysphagia Procedures XR MODIFIED BARIUM SWALLOW W SPEECH THERAPY XR MODIFIED BARIUM SWALLOW W SPEECH THERAPY RADIOLOGIC EXAM SWALLOW FUNCTION CONTRAST STUDY Virginia Reina APRN.CNP [address] [place] [address] [place] [address] Referral ID Status Reason Start Date Expiration Date Visits Requested Visits Authorized [id number] Authorized Auto-Generat ed Referral 11/12/2025 1 1 [facility] for referral (narrative)* Diagnostic Procedure Only (Routine) - Closed Specialty Diagnoses / Procedures Referred By Contac t Referred To Contact XR IMAGING Diagnoses Oropharyngeal dysphagia Procedures XR MODIFIED BARIUM SWALLOW W SPEECH THERAPY XR MODIFIED BARIUM SWALLOW W SPEECH THERAPY RADIOLOGIC EXAM SWALLOW FUNCTION CONTRAST STUDY Virginia Reina APRN.CNP [address] [place] [address] [place] [address] Referral ID Status Reason Start Date Expiration Date V isits Requested Visits Authorized [id number] Closed Auto-Generate d Referral 10/13/2024 11/12/2025 1 1 [facility] for referral (narrative)No reason for referral information availableWSelect [facility] Phone: [facility] N[facility]* Diagnostic Procedure Only (Routine) - Closed Specialty Diagnoses / Procedures Referred By Contac t Referred To Contact XR IMAGING Diagnoses Rib pain on right side Procedures XR RIBS/CHEST 3V AP RIB/OBLS/CXR RIGHT RADEX RIBS UNI W/POSTEROANT CH MINIMUM 3 VIEWS Nancy Medley MD [address] [place] [address] [place] [address] Referral ID Status Reason Start Date Expiration Date V isits Requested Visits Authorized [id number] Closed Auto-Generate d Referral 06/05/2024 07/05/2025 1 1 [facility] for visit Narrative* Diagnostic Procedure Only (Routine) - Closed Specialty Diagnoses / Procedures Referred By Contac t Referred To Contact XR IMAGING Diagnoses Oropharyngeal dysphagia Procedures XR MODIFIED BARIUM SWALLOW W SPEECH THERAPY XR MODIFIED BARIUM SWALLOW W SPEECH THERAPY RADIOLOGIC EXAM SWALLOW FUNCTION CONTRAST STUDY Virginia Reina APRN.CNP [address] [place] [address] [place] [address] Referral ID Status Reason Start Date Expiration Date V isits Requested Visits Authorized [id number] Closed Auto-Generate d Referral 10/13/2024 11/12/2025 1 1 [facility] for visit Narrative* Diagnostic Procedure Only (Routine) - Closed Specialty Diagnoses / Procedures Referred By Contac t Referred To Contact US IMAGING Diagnoses Epigastric pain Elevated lipase Procedures US ABD RIGHT UPPER QUADRANT US ABDOMINAL REAL TIME W/IMAGE LIMITED Henok Martinez MD [address] [place] [address] [place] [address] Referral ID Status Reason Start Date Expiration Date V isits Requested Visits Authorized [id number] Closed Auto-Generate d Referral 11/06/202412/0612/06/2025 1 1 [facility]/CT (Routine) - Closed Specialty Diagnoses / Procedures Referred By Contac t Referred To Contact CT IMAGING Diagnoses 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) Adenocarcinoma of head of pancreas (HCC) Procedures CT CHEST W IVCON DIAGNOSTIC COMPUTED TOMOGRAPHY THORAX W/CONTRAST Juan Miguel Yusuf MD [address] [place] [address] Phone: tel: [facility] [place] [address] Referral ID Status Reason Start Date Expiration Date V isits Requested Visits Authorized [id number] Closed Auto-Generate d Referral 05/25/2025 06/24/2026 1 1 [facility] Reason for Referral Specialty Diagnoses / Procedures Referred By Contac t Referred To Contact Pulmonary and Critical Care Medicine Diagnoses Cough, unspecified type Procedures CONSULT TO PULM/CRITICAL CARE OFFICE/OUTPATIENT [facility] 60-74 MINUTES Hneok Martinez MD [address] [place] [address] Referral ID Status Reason Start Date Expiration Date Visits Requested Visits Authorized [id number] Authorized PCP Requested Referral 2 10/26/2023 1 1 Specialty Diagnoses / Procedures Referred By Contac t Referred To Contact CT IMAGING Diagnoses Chronic cough Abnormal chest x-ray Procedures CT CHEST WO IVCON DIAGNOSTIC COMPUTED TOMOGRAPHY THORAX W/O CNTRST Nancy Medley MD [address] [place] [address] Ct Imaging Referral ID Status Reason Start Date Expiration Date Visits Requested Visits Authorized [id number] Authorized Auto-Generat ed Referral 11/16/2022 12/16/2023 1 1 Specialty Diagnoses / Procedures Referred By Contac t Referred To Contact [facility] Diagnoses Chronic cough Procedures NITRIC OXIDE, EXHALED NITRIC OXIDE GAS DETERMINATION Nancy Medley MD [address] [facility] [place] [address] Respiratory [place] [address] [place] [address] Referral ID Status Reason Start Date Expiration Date V isits Requested Visits Authorized [id number] Closed Auto-Generate d Referral 11/16/2022 12/16/2023 1 1 Specialty Diagnoses / Procedures Referred By Contac t Referred To Contact Cardiology Diagnoses Atrial myxoma Procedures CONSULT TO CARDIOLOGY OFFICE/OUTPATIENT [facility] 60-74 MINUTES Henok Martinez MD [address] [place] [address] Referral ID Status Reason Start Date Expiration Date Visits Requested Visits Authorized [id number] Authorized PCP Requested Referral 01/25/2023 01/25/2024 1 1 Specialty Diagnoses / Procedures Referred By Contac t Referred To Contact Gynecology Diagnoses History of uterine cancer Procedures CONSULT TO GYNECOLOGY OFFICE/OUTPATIENT [facility] 60-[place] [address] [place] [address] Referral ID Status Reason Start Date Expiration Date Visits Requested Visits Authorized [id number] Authorized PCP Requested Referral Auto-Generate d Referral 01/25/2023 01/25/2024 1 1 Specialty Diagnoses / Procedures Referred By Contac t Referred To Contact Ophthalmology Diagnoses Type 2 diabetes mellitus without complication, without long-term current use of insulin (HCC) Procedures CONSULT TO OPHTHALMOLOGY OFFICE/OUTPATIENT [facility] 60-74 MINUTES Henok Martinez MD [address] [place] [address] Referral ID Status Reason Start Date Expiration Date Visits Requested Visits Authorized [id number] Authorized PCP Requested Referral 01/25/2023 01/25/2024 1 1 Specialty Diagnoses / Procedures Referred By Contac t Referred To Contact Nutrition Diagnoses Type 2 diabetes mellitus without complication, without long-term current use of insulin (HCC) Procedures CONSULT TO NUTRITION THERAPY MEDICAL NUTRITION ASSMT&IVNTJ INDIV EACH 15 [place] MEDICAL NUTRITION ASSMT&IVNTJ INDIV EACH 15 [place] MEDICAL NUTRITION ASSMT&IVNTJ INDIV EACH 15 [place] MEDICAL [place]UTRITION ASSMT&IVNTJ INDIV EACH 15 [place] Henok Martinez MD [address] [place] [address] Referral ID Status Reason Start Date Expiration Date Visits Requested Visits Authorized [id number] Authorized PCP Requested Referral 01/25/2023 01/25/2024 1 1 Specialty Diagnoses / Procedures Referred By Contac t Referred To Contact CT IMAGING Diagnoses Pelvic and perineal pain Procedures CT PELVIS W IVCON CT PELVIS W/CONTRAST MATERIAL Sadia Ramsey, CORPORATE DIRECTOR TALENT ASSESSMENT.[employer] [address] [facility] [place] [address] Ct Imaging Referral ID Status Reason Start Date Expiration Date Visits Requested Visits Authorized [id number] Authorized Auto-Generat ed Referral 02/08/2023 03/09/2024 1 1 Specialty Diagnoses / Procedures Referred By Contac t Referred To Contact CT IMAGING Diagnoses Pelvic and perineal pain Procedures CT PELVIS W IVCON CT PELVIS W/CONTRAST MATERIAL BraulioSadia carlson, CORPORATE DIRECTOR TALENT ASSESSMENT.[employer]TRID[employer] FILLER [address] [facility] [place] [address] [place] [address] Referral ID Status Reason Start Date Expiration Date V isits Requested Visits Authorized [id number] Closed Auto-Generate d Referral 02/08/2023 03/09/2024 1 1 Specialty Diagnoses / Procedures Referred By Contac t Referred To Contact CT IMAGING Diagnoses Chronic cough Abnormal chest x-ray Procedures CT CHEST WO IVCON DIAGNOSTIC COMPUTED TOMOGRAPHY THORAX W/O CNTRSNancy Davies MD [address] [place] [address] [place] [address] Referral ID Status Reason Start Date Expiration Date V isits Requested Visits Authorized [id number] Closed Auto-Generate d Referral 11/16/2022 12/16/2023 1 1 Specialty Diagnoses / Procedures Referred By Contac t Referred To Contact Ent - Otolaryngology Diagnoses Pill dysphagia Left ear pain Procedures CONSULT TO ENT OFFICE/OUTPATIENT [facility] 60-74 MINUTES Taco Muller PA-C [address] [place] [address] Referral ID Status Reason Start Date Expiration Date Visits Requested Visits Authorized [id number] Authorized PCP Requested Referral 09/05/2023 09/04/2024 1 1 Specialty Diagnoses / Procedures Referred By Contac t Referred To Contact Endocrinology Diagnoses Type 2 diabetes mellitus without complication, without long-term current use of insulin (HCC) Procedures CONSULT TO ENDOCRINOLOGY OFFICE/OUTPATIENT [facility] 60 MINUTES Henok Martinez MD [address] [place] [address] Referral ID Status Reason Start Date Expiration Date Visits Requested Visits Authorized [id number] Authorized PCP Requested Referral 03/05/2024 03/05/2025 1 1 Specialty Diagnoses / Procedures Referred By Contac t Referred To Contact [facility] Diagnoses Cervical radicular pain Procedures CONSULT TO PHYSICAL THERAPY PHYSICAL THERAPY EVALUATION HIGH COMPLEX 45 MINS Henok Martinez MD [address] [place] [address] [facility] [place] [address] [place] [address] Referral ID Status Reason Start Date Expiration Date Visits Requested Visits Authorized [id number] Authorized PCP Requested Referral Auto-Generate d Referral 07/01/2024 07/01/2025 99 99 Specialty Diagnoses / Procedures Referred By Contac t Referred To Contact Pulmonary and Critical Care Medicine Diagnoses Hemoptysis Procedures CONSULT TO PULM/CRITICAL CARE OFFICE/OUTPATIENT [facility] 60 MINUTES Henok Martinez MD [address] [place] [address] Referral ID Status Reason Start Date Expiration Date Visits Requested Visits Authorized [id number] Authorized PCP Requested Referral 11/04/2024 11/04/2025 1 1 Specialty Diagnoses / Procedures Referred By Contac t Referred To Contact US IMAGING Diagnoses Epigastric pain Procedures US ABD RIGHT UPPER QUADRANT US ABDOMINAL REAL TIME W/IMAGE LIMITED Henok Martinez MD [address] [place] [address] [place] [address] Referral ID Status Reason Start Date Expiration Date Visits Requested Visits Authorized [id number] Authorized Auto-Generat ed Referral 11/04/2024 12/04/2025 1 1 Referral ID Status Reason Start Date Expiration Date Visits Requested Visits Authorized [id number] Authorized PCP Requested Referral 11/06/2024 11/06/2025 1 1 Specialty Diagnoses / Procedures Referred By Contac t Referred To Contact US IMAGING Diagnoses Epigastric pain Elevated lipase Procedures US ABD RIGHT UPPER QUADRANT US ABDOMINAL REAL TIME W/IMAGE LIMITED Henok Martinez MD [address] [place] [address] [facility] [address] Referral ID Status Reason Start Date Expiration Date V isits Requested Visits Authorized [id number] Closed Auto-Generate d Referral 11/06/2024 12/06/2025 1 [...] attack Chief 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 Weakness Reason for Visit [...] Will No August 20 1:38pm Power of Laboratory [place] No August 20, 2021 1:38pm Advance Directive Response Recorded Date/ Time Advance Directives No March 18 11:33am Living Will No March 18, 2023 1 1:33am Power of Laboratory [place] No March 18, 2023 11:33am Advance Directive Response Recorded Date/ Time Advance Directives No March 18 11:33am Living Will No March 30, 2023 9 :37pm Power of Laboratory [place] No March 30, 2023 9:37pm Advance Directive Response Recorded Date/ Time Advance Directives No March 18 11:33am Living Will No April 22, 2023 5:09pm Power of Laboratory [place] No April 22 5:09pm Advance Directive Response Recorded Date/ Time Advance Directives No March 18 10:33am Living Will No July 30 3:22pm Power of Laboratory [place] No July 30, 2 023 3:22pm Advance Directive Response Recorded Date/ Time Advance Directives No March 18 11:33am Living Will No February 25, 2024 3:15pm Power of Laboratory [place] No February 24 3:15pm Date Activated Date Inactivated Comments 01/15/2025 2:04 AM Date Activated Date Inactivated Comments 01/15/2025 2:04 AM Question Answer Comments Full Code Order Discussed With: Patient Advance Directive Response Recorded Date/ Time Living Will No June 25 3:46pm Power of Laboratory [place] No June 25, 024 3:46pm Living Will No January 09, 2025 6:51pm Power of Laboratory [place] No January 09 6:51pm Advance Directives No March 18 11:33am Advance Directive Response Recorded Date/ Time Living Will No June 25 3:46pm Do you have a Healthcare Power of Laboratory [place]? No June 25, 2024 3:46pm Living Will No January 10, 2025 2:58am Do you have a Healthcare Power of Laboratory [place]? No January 10, 2025 2:58am Advance Directives [...] or prosecute any alcohol or drug abuse patient.[facility] the event this information is protected by the Federal Confidentiality of Alcohol and Drug Abuse Patient Records regulations: The Federal rules restrict any use of the information to criminally investigate or prosecute any alcohol or drug abuse patient.[facility] the event this information is protected by the Federal Confidentiality of Alcohol and Drug Abuse Patient Records regulations: The Federal rules restrict any use of the information to criminally investigate or prosecute any alcohol or drug abuse patient.[facility] the event this information is protected by the Federal Confidentiality of Alcohol and Drug Abuse Patient Records regulations: The Federal rules restrict any use of the information to criminally investigate or prosecute any alcohol or drug abuse patient.[facility]In the event this information is protected by the Federal Confidentiality of Alcohol and Drug Abuse Patient Records regulations: The Federal rules restrict any use of the information to criminally investigate or prosecute any alcohol or drug abuse patient.[facility] HospitalIn the event this information is protected by the Federal Confidentiality of Alcohol and Drug Abuse Patient Records regulations: The Federal rules restrict any use of the information to criminally investigate or prosecute any alcohol or drug abuse patient.[facility] HospitalIn the event this information is protected by the Federal Confidentiality of Alcohol and Drug Abuse Patient Records regulations: The Federal rules restrict any use of the information to criminally investigate or prosecute any alcohol or drug abuse patient.[facility]In the event this information is protected by the Federal Confidentiality of Alcohol and Drug Abuse Patient Records regulations: The Federal rules restrict any use of the information to criminally investigate or prosecute any alcohol or drug abuse patient.[facility] HospitalIn the event this information is protected by the Federal Confidentiality of Alcohol and Drug Abuse Patient Records regulations: The Federal rules restrict any use of the information to criminally investigate or prosecute any alcohol or drug abuse patient.[facility]In the event this information is protected by the Federal Confidentiality of Alcohol and Drug Abuse Patient Records regulations: The Federal rules restrict any use of the information to criminally investigate or prosecute any alcohol or drug abuse patient.[facility] HospitalIn the event this information is protected by the Federal Confidentiality of Alcohol and Drug Abuse Patient Records regulations: The Federal rules restrict any use of the information to criminally investigate or prosecute any alcohol or drug abuse patient.[facility] HospitalIn the event this information is protected by the Federal Confidentiality of Alcohol and Drug Abuse Patient Records regulations: The Federal rules restrict any use of the information to criminally investigate or prosecute any alcohol or drug abuse patient.[facility] HospitalIn the event this information is protected by the Federal Confidentiality of Alcohol and Drug Abuse Patient Records regulations: The Federal rules restrict any use of the information to criminally investigate or prosecute any alcohol or drug abuse patient.[facility] HospitalIn the event this information is protected by the Federal Confidentiality of Alcohol and Drug Abuse Patient Records regulations: The Federal rules restrict any use of the information to criminally investigate or prosecute any alcohol or drug abuse patient.[facility] HospitalIn the event this information is protected by the Federal Confidentiality of Alcohol and Drug Abuse Patient Records regulations: The Federal rules restrict any use of the information to criminally investigate or prosecute any alcohol or drug abuse patient.[facility] HospitalIn the event this information is protected by the Federal Confidentiality of Alcohol and Drug Abuse Patient Records regulations: The Federal rules restrict any use of the information to criminally investigate or prosecute any alcohol or drug abuse patient.[facility] HospitalIn the event this information is protected by the Federal Confidentiality of Alcohol and Drug Abuse Patient Records regulations: The Federal rules restrict any use of the information to criminally investigate or prosecute any alcohol or drug abuse patient.[facility] HospitalIn the event this information is protected by the Federal Confidentiality of Alcohol and Drug Abuse Patient Records regulations: The Federal rules restrict any use of the information to criminally investigate or prosecute any alcohol or drug abuse patient.[facility] HospitalIn the event this information is protected by the Federal Confidentiality of Alcohol and Drug Abuse Patient Records regulations: The Federal rules restrict any use of the information to criminally investigate or prosecute any alcohol or drug abuse patient.[facility] HospitalIn the event this information is protected by the Federal Confidentiality of Alcohol and Drug Abuse Patient Records regulations: The Federal rules restrict any use of the information to criminally investigate or prosecute any alcohol or drug abuse patient.[facility] HospitalIn the event this information is protected by the Federal Confidentiality of Alcohol and Drug Abuse Patient Records regulations: The Federal rules restrict any use of the information to criminally investigate or prosecute any alcohol or drug abuse patient.[facility] HospitalIn the event this information is protected by the Federal Confidentiality of Alcohol and Drug Abuse Patient Records regulations: The Federal rules restrict any use of the information to criminally investigate or prosecute any alcohol or drug abuse patient.[facility] HospitalIn the event this information is protected by the Federal Confidentiality of Alcohol and Drug Abuse Patient Records regulations: The Federal rules restrict any use of the information to criminally investigate or prosecute any alcohol or drug abuse patient.[facility] HospitalIn the event this information is protected by the Federal Confidentiality of Alcohol and Drug Abuse Patient Records regulations: The Federal rules restrict any use of the information to criminally investigate or prosecute any alcohol or drug abuse patient.[facility] HospitalIn the event this information is protected by the Federal Confidentiality of Alcohol and Drug Abuse Patient Records regulations: The Federal rules restrict any use of the information to criminally investigate or prosecute any alcohol or drug abuse patient.[facility] HospitalIn the event this information is protected by the Federal Confidentiality of Alcohol and Drug Abuse Patient Records regulations: The Federal rules restrict any use of the information to criminally investigate or prosecute any alcohol or drug abuse patient.[facility] HospitalIn the event this information is protected by the Federal Confidentiality of Alcohol and Drug Abuse Patient Records regulations: The Federal rules restrict any use of the information to criminally investigate or prosecute any alcohol or drug abuse patient.[facility] HospitalIn the event this information is protected by the Federal Confidentiality of Alcohol and Drug Abuse Patient Records regulations: The Federal rules restrict any use of the information to criminally investigate or prosecute any alcohol or drug abuse patient.[facility] HospitalIn the event this information is protected by the Federal Confidentiality of Alcohol and Drug Abuse Patient Records regulations: The Federal rules restrict any use of the information to criminally investigate or prosecute any alcohol or drug abuse patient.[facility] HospitalIn the event this information is protected by the Federal Confidentiality of Alcohol and Drug Abuse Patient Records regulations: The Federal rules restrict any use of the information to criminally investigate or prosecute any alcohol or drug abuse patient.[facility] HospitalIn the event this information is protected by the Federal Confidentiality of Alcohol and Drug Abuse Patient Records regulations: The Federal rules restrict any use of the information to criminally investigate or prosecute any alcohol or drug abuse patient.[facility] HospitalIn the event this information is protected by the Federal Confidentiality of Alcohol and Drug Abuse Patient Records regulations: The Federal rules restrict any use of the information to criminally investigate or prosecute any alcohol or drug abuse patient.[facility] HospitalIn the event this information is protected by the Federal Confidentiality of Alcohol and Drug Abuse Patient Records regulations: The Federal rules restrict any use of the information to criminally investigate or prosecute any alcohol or drug abuse patient.[facility] HospitalIn the event this information is protected by the Federal Confidentiality of Alcohol and Drug Abuse Patient Records regulations: The Federal rules restrict any use of the information to criminally investigate or prosecute any alcohol or drug abuse patient.[facility] HospitalIn the event this information is protected by the Federal Confidentiality of Alcohol and Drug Abuse Patient Records regulations: The Federal rules restrict any use of the information to criminally investigate or prosecute any alcohol or drug abuse patient.[facility] HospitalIn the event this information is protected by the Federal Confidentiality of Alcohol and Drug Abuse Patient Records regulations: The Federal rules restrict any use of the information to criminally investigate or prosecute any alcohol or drug abuse patient.[facility] HospitalIn the event this information is protected by the Federal Confidentiality of Alcohol and Drug Abuse Patient Records regulations: The Federal rules restrict any use of the information to criminally investigate or prosecute any alcohol or drug abuse patient.[facility]In the event this information is protected by the Federal Confidentiality of Alcohol and Drug Abuse Patient Records regulations: The Federal rules restrict any use of the information to criminally investigate or prosecute any alcohol or drug abuse patient.[facility] HospitalIn the event this information is protected by the Federal Confidentiality of Alcohol and Drug Abuse Patient Records regulations: The Federal rules restrict any use of the information to criminally investigate or prosecute any alcohol or drug abuse patient.[facility] HospitalIn the event this information is protected by the Federal Confidentiality of Alcohol and Drug Abuse Patient Records regulations: The Federal rules restrict any use of the information to criminally investigate or prosecute any alcohol or drug abuse patient.[facility] HospitalIn the event this information is protected by the Federal Confidentiality of Alcohol and Drug Abuse Patient Records regulations: The Federal rules restrict any use of the information to criminally investigate or prosecute any alcohol or drug abuse patient.[facility] HospitalIn the event this information is protected by the Federal Confidentiality of Alcohol and Drug Abuse Patient Records regulations: The Federal rules restrict any use of the information to criminally investigate or prosecute any alcohol or drug abuse patient.[facility] HospitalIn the event this information is protected by the Federal Confidentiality of Alcohol and Drug Abuse Patient Records regulations: The Federal rules restrict any use of the information to criminally investigate or prosecute any alcohol or drug abuse patient.[facility] HospitalIn the event this information is protected by the Federal Confidentiality of Alcohol and Drug Abuse Patient Records regulations: The Federal rules restrict any use of the information to criminally investigate or prosecute any alcohol or drug abuse patient.[facility] HospitalIn the event this information is protected by the Federal Confidentiality of Alcohol and Drug Abuse Patient Records regulations: The Federal rules restrict any use of the information to criminally investigate or prosecute any alcohol or drug abuse patient.[facility] HospitalIn the event this information is protected by the Federal Confidentiality of Alcohol and Drug Abuse Patient Records regulations: The Federal rules restrict any use of the information to criminally investigate or prosecute any alcohol or drug abuse patient.[facility] HospitalIn the event this information is protected by the Federal Confidentiality of Alcohol and Drug Abuse Patient Records regulations: The Federal rules restrict any use of the information to criminally investigate or prosecute any alcohol or drug abuse patient.[facility] HospitalIn the event this information is protected by the Federal Confidentiality of Alcohol and Drug Abuse Patient Records regulations: The Federal rules restrict any use of the information to criminally investigate or prosecute any alcohol or drug abuse patient.[facility] HospitalIn the event this information is protected by the Federal Confidentiality of Alcohol and Drug Abuse Patient Records regulations: The Federal rules restrict any use of the information to criminally investigate or prosecute any alcohol or drug abuse patient.[facility] HospitalIn the event this information is protected by the Federal Confidentiality of Alcohol and Drug Abuse Patient Records regulations: The Federal rules restrict any use of the information to criminally investigate or prosecute any alcohol or drug abuse patient.[facility] HospitalIn the event this information is protected by the Federal Confidentiality of Alcohol and Drug Abuse Patient Records regulations: The Federal rules restrict any use of the information to criminally investigate or prosecute any alcohol or drug abuse patient.[facility] HospitalIn the event this information is protected by the Federal Confidentiality of Alcohol and Drug Abuse Patient Records regulations: The Federal rules restrict any use of the information to criminally investigate or prosecute any alcohol or drug abuse patient.[facility] HospitalIn the event this information is protected by the Federal Confidentiality of Alcohol and Drug Abuse Patient Records regulations: The Federal rules restrict any use of the information to criminally investigate or prosecute any alcohol or drug abuse patient.[facility] HospitalIn the event this information is protected by the Federal Confidentiality of Alcohol and Drug Abuse Patient Records regulations: The Federal rules restrict any use of the information to criminally investigate or prosecute any alcohol or drug abuse patient.[facility] HospitalIn the event this information is protected by the Federal Confidentiality of Alcohol and Drug Abuse Patient Records regulations: The Federal rules restrict any use of the information to criminally investigate or prosecute any alcohol or drug abuse patient.[facility] HospitalIn the event this information is protected by the Federal Confidentiality of Alcohol and Drug Abuse Patient Records regulations: The Federal rules restrict any use of the information to criminally investigate or prosecute any alcohol or drug abuse patient.[facility] HospitalIn the event this information is protected by the Federal Confidentiality of Alcohol and Drug Abuse Patient Records regulations: The Federal rules restrict any use of the information to criminally investigate or prosecute any alcohol or drug abuse patient.[facility] HospitalIn the event this information is protected by the Federal Confidentiality of Alcohol and Drug Abuse Patient Records regulations: The Federal rules restrict any use of the information to criminally investigate or prosecute any alcohol or drug abuse patient.[facility] HospitalIn the event this information is protected by the Federal Confidentiality of Alcohol and Drug Abuse Patient Records regulations: The Federal rules restrict any use of the information to criminally investigate or prosecute any alcohol or drug abuse patient.[facility] HospitalIn the event this information is protected by the Federal Confidentiality of Alcohol and Drug Abuse Patient Records regulations: The Federal rules restrict any use of the information to criminally investigate or prosecute any alcohol or drug abuse patient.[facility] HospitalIn the event this information is protected by the Federal Confidentiality of Alcohol and Drug Abuse Patient Records regulations: The Federal rules restrict any use of the information to criminally investigate or prosecute any alcohol or drug abuse patient.[facility] HospitalIn the event this information is protected by the Federal Confidentiality of Alcohol and Drug Abuse Patient Records regulations: The Federal rules restrict any use of the information to criminally investigate or prosecute any alcohol or drug abuse patient.[facility] HospitalIn the event this information is protected by the Federal Confidentiality of Alcohol and Drug Abuse Patient Records regulations: The Federal rules restrict any use of the information to criminally investigate or prosecute any alcohol or drug abuse patient.[facility] HospitalIn the event this information is protected by the Federal Confidentiality of Alcohol and Drug Abuse Patient Records regulations: The Federal rules restrict any use of the information to criminally investigate or prosecute any alcohol or drug abuse patient.[facility] HospitalIn the event this information is protected by the Federal Confidentiality of Alcohol and Drug Abuse Patient Records regulations: The Federal rules restrict any use of the information to criminally investigate or prosecute any alcohol or drug abuse patient.[facility] HospitalIn the event this information is protected by the Federal Confidentiality of Alcohol and Drug Abuse Patient Records regulations: The Federal rules restrict any use of the information to criminally investigate or prosecute any alcohol or drug abuse patient.[facility] HospitalIn the event this information is protected by the Federal Confidentiality of Alcohol and Drug Abuse Patient Records regulations: The Federal rules restrict any use of the information to criminally investigate or prosecute any alcohol or drug abuse patient.[facility] HospitalIn the event this information is protected by the Federal Confidentiality of Alcohol and Drug Abuse Patient Records regulations: The Federal rules restrict any use of the information to criminally investigate or prosecute any alcohol or drug abuse patient.[facility] HospitalIn the event this information is protected by the Federal Confidentiality of Alcohol and Drug Abuse Patient Records regulations: The Federal rules restrict any use of the information to criminally investigate or prosecute any alcohol or drug abuse patient.[facility] HospitalIn the event this information is protected by the Federal Confidentiality of Alcohol and Drug Abuse Patient Records regulations: The Federal rules restrict any use of the information to criminally investigate or prosecute any alcohol or drug abuse patient.[facility] HospitalIn the event this information is protected by the Federal Confidentiality of Alcohol and Drug Abuse Patient Records regulations: The Federal rules restrict any use of the information to criminally investigate or prosecute any alcohol or drug abuse patient.[facility] HospitalIn the event this information is protected by the Federal Confidentiality of Alcohol and Drug Abuse Patient Records regulations: The Federal rules restrict any use of the information to criminally investigate or prosecute any alcohol or drug abuse patient.[facility] HospitalIn the event this information is protected by the Federal Confidentiality of Alcohol and Drug Abuse Patient Records regulations: The Federal rules restrict any use of the information to criminally investigate or prosecute any alcohol or drug abuse patient.[facility] HospitalIn the event this information is protected by the Federal Confidentiality of Alcohol and Drug Abuse Patient Records regulations: The Federal rules restrict any use of the information to criminally investigate or prosecute any alcohol or drug abuse patient.[facility] HospitalIn the event this information is protected by the Federal Confidentiality of Alcohol and Drug Abuse Patient Records regulations: The Federal rules restrict any use of the information to criminally investigate or prosecute any alcohol or drug abuse patient.[facility] HospitalIn the event this information is protected by the Federal Confidentiality of Alcohol and Drug Abuse Patient Records regulations: The Federal rules restrict any use of the information to criminally investigate or prosecute any alcohol or drug abuse patient.[facility] HospitalIn the event this information is protected by the Federal Confidentiality of Alcohol and Drug Abuse Patient Records regulations: The Federal rules restrict any use of the information to criminally investigate or prosecute any alcohol or drug abuse patient.[facility] HospitalIn the event this information is protected by the Federal Confidentiality of Alcohol and Drug Abuse Patient Records regulations: The Federal rules restrict any use of the information to criminally investigate or prosecute any alcohol or drug abuse patient.[facility] HospitalIn the event this information is protected by the Federal Confidentiality of Alcohol and Drug Abuse Patient Records regulations: The Federal rules restrict any use of the information to criminally investigate or prosecute any alcohol or drug abuse patient.[facility] HospitalIn the event this information is protected by the Federal Confidentiality of Alcohol and Drug Abuse Patient Records regulations: The Federal rules restrict any use of the information to criminally investigate or prosecute any alcohol or drug abuse patient.[facility] HospitalIn the event this information is protected by the Federal Confidentiality of Alcohol and Drug Abuse Patient Records regulations: The Federal rules restrict any use of the information to criminally investigate or prosecute any alcohol or drug abuse patient.[facility] HospitalIn the event this information is protected by the Federal Confidentiality of Alcohol and Drug Abuse Patient Records regulations: The Federal rules restrict any use of the information to criminally investigate or prosecute any alcohol or drug abuse patient.[facility] HospitalIn the event this information is protected by the Federal Confidentiality of Alcohol and Drug Abuse Patient Records regulations: The Federal rules restrict any use of the information to criminally investigate or prosecute any alcohol or drug abuse patient.[facility] HospitalIn the event this information is protected by the Federal Confidentiality of Alcohol and Drug Abuse Patient Records regulations: The Federal rules restrict any use of the information to criminally investigate or prosecute any alcohol or drug abuse patient.[facility] HospitalIn the event this information is protected by the Federal Confidentiality of Alcohol and Drug Abuse Patient Records regulations: The Federal rules restrict any use of the information to criminally investigate or prosecute any alcohol or drug abuse patient.[facility] HospitalIn the event this information is protected by the Federal Confidentiality of Alcohol and Drug Abuse Patient Records regulations: The Federal rules restrict any use of the information to criminally investigate or prosecute any alcohol or drug abuse patient.[facility] HospitalIn the event this information is protected by the Federal Confidentiality of Alcohol and Drug Abuse Patient Records regulations: The Federal rules restrict any use of the information to criminally investigate or prosecute any alcohol or drug abuse patient.[facility] HospitalIn the event this information is protected by the Federal Confidentiality of Alcohol and Drug Abuse Patient Records regulations: The Federal rules restrict any use of the information to criminally investigate or prosecute any alcohol or drug abuse patient.[facility] HospitalIn the event this information is protected by the Federal Confidentiality of Alcohol and Drug Abuse Patient Records regulations: The Federal rules restrict any use of the information to criminally investigate or prosecute any alcohol or drug abuse patient.[facility] HospitalIn the event this information is protected by the Federal Confidentiality of Alcohol and Drug Abuse Patient Records regulations: The Federal rules restrict any use of the information to criminally investigate or prosecute any alcohol or drug abuse patient.[facility] HospitalIn the event this information is protected by the Federal Confidentiality of Alcohol and Drug Abuse Patient Records regulations: The Federal rules restrict any use of the information to criminally investigate or prosecute any alcohol or drug abuse patient.[facility] HospitalIn the event this information is protected by the Federal Confidentiality of Alcohol and Drug Abuse Patient Records regulations: The Federal rules restrict any use of the information to criminally investigate or prosecute any alcohol or drug abuse patient.[facility] HospitalIn the event this information is protected by the Federal Confidentiality of Alcohol and Drug Abuse Patient Records regulations: The Federal rules restrict any use of the information to criminally investigate or prosecute any alcohol or drug abuse patient.[facility] HospitalIn the event this information is protected by the Federal Confidentiality of Alcohol and Drug Abuse Patient Records regulations: The Federal rules restrict any use of the information to criminally investigate or prosecute any alcohol or drug abuse patient.[facility] HospitalIn the event this information is protected by the Federal Confidentiality of Alcohol and Drug Abuse Patient Records regulations: The Federal rules restrict any use of the information to criminally investigate or prosecute any alcohol or drug abuse patient.[facility] HospitalIn the event this information is protected by the Federal Confidentiality of Alcohol and Drug Abuse Patient Records regulations: The Federal rules restrict any use of the information to criminally investigate or prosecute any alcohol or drug abuse patient.[facility] HospitalIn the event this information is protected by the Federal Confidentiality of Alcohol and Drug Abuse Patient Records regulations: The Federal rules restrict any use of the information to criminally investigate or prosecute any alcohol or drug abuse patient.[facility] HospitalIn the event this information is protected by the Federal Confidentiality of Alcohol and Drug Abuse Patient Records regulations: The Federal rules restrict any use of the information to criminally investigate or prosecute any alcohol or drug abuse patient.[facility] HospitalIn the event this information is protected by the Federal Confidentiality of Alcohol and Drug Abuse Patient Records regulations: The Federal rules restrict any use of the information to criminally investigate or prosecute any alcohol or drug abuse patient.[facility] HospitalIn the event this information is protected by the Federal Confidentiality of Alcohol and Drug Abuse Patient Records regulations: The Federal rules restrict any use of the information to criminally investigate or prosecute any alcohol or drug abuse patient.[facility] HospitalIn the event this information is protected by the Federal Confidentiality of Alcohol and Drug Abuse Patient Records regulations: The Federal rules restrict any use of the information to criminally investigate or prosecute any alcohol or drug abuse patient.[facility] HospitalIn the event this information is protected by the Federal Confidentiality of Alcohol and Drug Abuse Patient Records regulations: The Federal rules restrict any use of the information to criminally investigate or prosecute any alcohol or drug abuse patient.[facility] HospitalIn the event this information is protected by the Federal Confidentiality of Alcohol and Drug Abuse Patient Records regulations: The Federal rules restrict any use of the information to criminally investigate or prosecute any alcohol or drug abuse patient.[facility] HospitalIn the event this information is protected by the Federal Confidentiality of Alcohol and Drug Abuse Patient Records regulations: The Federal rules restrict any use of the information to criminally investigate or prosecute any alcohol or drug abuse patient.[facility] HospitalIn the event this information is protected by the Federal Confidentiality of Alcohol and Drug Abuse Patient Records regulations: The Federal rules restrict any use of the information to criminally investigate or prosecute any alcohol or drug abuse patient.[facility] HospitalIn the event this information is protected by the Federal Confidentiality of Alcohol and Drug Abuse Patient Records regulations: The Federal rules restrict any use of the information to criminally investigate or prosecute any alcohol or drug abuse patient.[facility] HospitalIn the event this information is protected by the Federal Confidentiality of Alcohol and Drug Abuse Patient Records regulations: The Federal rules restrict any use of the information to criminally investigate or prosecute any alcohol or drug abuse patient.[facility] HospitalIn the event this information is protected by the Federal Confidentiality of Alcohol and Drug Abuse Patient Records regulations: The Federal rules restrict any use of the information to criminally investigate or prosecute any alcohol or drug abuse patient.[facility] HospitalIn the event this information is protected by the Federal Confidentiality of Alcohol and Drug Abuse Patient Records regulations: The Federal rules restrict any use of the information to criminally investigate or prosecute any alcohol or drug abuse patient.[facility] HospitalIn the event this information is protected by the Federal Confidentiality of Alcohol and Drug Abuse Patient Records regulations: The Federal rules restrict any use of the information to criminally investigate or prosecute any alcohol or drug abuse patient.[facility] HospitalIn the event this information is protected by the Federal Confidentiality of Alcohol and Drug Abuse Patient Records regulations: The Federal rules restrict any use of the information to criminally investigate or prosecute any alcohol or drug abuse patient.[facility] HospitalIn the event this information is protected by the Federal Confidentiality of Alcohol and Drug Abuse Patient Records regulations: The Federal rules restrict any use of the information to criminally investigate or prosecute any alcohol or drug abuse patient.[facility] HospitalIn the event this information is protected by the Federal Confidentiality of Alcohol and Drug Abuse Patient Records regulations: The Federal rules restrict any use of the information to criminally investigate or prosecute any alcohol or drug abuse patient.[facility] HospitalIn the event this information is protected by the Federal Confidentiality of Alcohol and Drug Abuse Patient Records regulations: The Federal rules restrict any use of the information to criminally investigate or prosecute any alcohol or drug abuse patient.[facility] HospitalIn the event this information is protected by the Federal Confidentiality of Alcohol and Drug Abuse Patient Records regulations: The Federal rules restrict any use of the information to criminally investigate or prosecute any alcohol or drug abuse patient.[facility] HospitalIn the event this information is protected by the Federal Confidentiality of Alcohol and Drug Abuse Patient Records regulations: The Federal rules restrict any use of the information to criminally investigate or prosecute any alcohol or drug abuse patient.[facility] HospitalIn the event this information is protected by the Federal Confidentiality of Alcohol and Drug Abuse Patient Records regulations: The Federal rules restrict any use of the information to criminally investigate or prosecute any alcohol or drug abuse patient.[facility] HospitalIn the event this information is protected by the Federal Confidentiality of Alcohol and Drug Abuse Patient Records regulations: The Federal rules restrict any use of the information to criminally investigate or prosecute any alcohol or drug abuse patient.[facility] HospitalIn the event this information is protected by the Federal Confidentiality of Alcohol and Drug Abuse Patient Records regulations: The Federal rules restrict any use of the information to criminally investigate or prosecute any alcohol or drug abuse patient.[facility] HospitalIn the event this information is protected by the Federal Confidentiality of Alcohol and Drug Abuse Patient Records regulations: The Federal rules restrict any use of the information to criminally investigate or prosecute any alcohol or drug abuse patient.[facility] HospitalIn the event this information is protected by the Federal Confidentiality of Alcohol and Drug Abuse Patient Records regulations: The Federal rules restrict any use of the information to criminally investigate or prosecute any alcohol or drug abuse patient.[facility] HospitalIn the event this information is protected by the Federal Confidentiality of Alcohol and Drug Abuse Patient Records regulations: The Federal rules restrict any use of the information to criminally investigate or prosecute any alcohol or drug abuse patient.[facility] HospitalIn the event this information is protected by the Federal Confidentiality of Alcohol and Drug Abuse Patient Records regulations: The Federal rules restrict any use of the information to criminally investigate or prosecute any alcohol or drug abuse patient.[facility] HospitalIn the event this information is protected by the Federal Confidentiality of Alcohol and Drug Abuse Patient Records regulations: The Federal rules restrict any use of the information to criminally investigate or prosecute any alcohol or drug abuse patient.[facility] HospitalIn the event this information is protected by the Federal Confidentiality of Alcohol and Drug Abuse Patient Records regulations: The Federal rules restrict any use of the information to criminally investigate or prosecute any alcohol or drug abuse patient.[facility] HospitalIn the event this information is protected by the Federal Confidentiality of Alcohol and Drug Abuse Patient Records regulations: The Federal rules restrict any use of the information to criminally investigate or prosecute any alcohol or drug abuse patient.[facility] HospitalIn the event this information is protected by the Federal Confidentiality of Alcohol and Drug Abuse Patient Records regulations: The Federal rules restrict any use of the information to criminally investigate or prosecute any alcohol or drug abuse patient.[facility] HospitalIn the event this information is protected by the Federal Confidentiality of Alcohol and Drug Abuse Patient Records regulations: The Federal rules restrict any use of the information to criminally investigate or prosecute any alcohol or drug abuse patient.[facility] HospitalIn the event this information is protected by the Federal Confidentiality of Alcohol and Drug Abuse Patient Records regulations: The Federal rules restrict any use of the information to criminally investigate or prosecute any alcohol or drug abuse patient.[facility] Reason for Visit (unrecogniz ed section and [...] Spirometry Specialty Diagnoses / Procedures [facility] [place] Diagnoses Mild intermittent asthma without complication Procedures LUNG VOLUMES Henok Martinez MD [address] [place] [address] Respiratory [place] [address] [place] [address] Referral ID Status Reason Start Date Expiration Date V isits Requested Visits Authorized [id number] Closed Auto-Generate d Referral 10/01/2022 10/31/2023 1 1 Specialty Diagnoses / Procedures [facility] Diagnoses Mild intermittent asthma without complication Procedures LUNG DIFFUSION CAPACITY (DLCO) DIFFUSING CAPACITY Henok Maritnez MD [address] [place] [address] [facility] [address] [place] [id number] Referral ID Status Reason Start Date Expiration Date V isits Requested Visits Authorized [id number] Closed Auto-Generate d Referral 10/01/2022 10/31/2023 1 1 Specialty Diagnoses / Procedures [facility] Diagnoses Mild intermittent asthma without complication Procedures SPIROMETRY - BASELINE AND POST DILATOR BRNCDILAT RSPSE SPMTRY PRE&POST-BRNCDILAT ADMN Henok Martinez MD [address] [place] [address] Respiratory [place] [address] [place] [address] Referral ID Status Reason Start Date Expiration Date V isits Requested Visits Authorized [id number] Closed Auto-Generate d Referral 10/01/2022 10/31/2023 1 1 Reason Comments Results Reason Comments Refill Request Reason Comments Results Discuss results of P FT's Specialty Diagnoses / Procedures Referred By Contac t Referred To Contact [facility] Diagnoses Chronic cough Procedures NITRIC OXIDE, EXHALED NITRIC OXIDE GAS DETERMINATION Nancy Medley MD [address] [place] [address] Respiratory [place] [address] [place] [address] Referral ID Status Reason Start Date Expiration Date V isits Requested Visits Authorized [id number] Closed Auto-Generate d Referral 11/16/2022 12/16/2023 1 1 Reason Comments New Patient Cough Specialty Diagnoses / Procedures Referred By Contac t Referred To Contact Pulmonary and Critical Care Medicine Diagnoses Cough, unspecified type Procedures CONSULT TO PULM/CRITICAL CARE OFFICE/OUTPATIENT [facility] 60-74 MINUTES Henok Martinez MD [address] [place] [address] Referral ID Status Reason Start Date Expiration Date V isits Requested Visits Authorized [id number] Closed PCP Requested Referral 10/26/2022 10/26/2023 1 1 Reason Comments Established Patient follow up cough Reason Comments Blood Pressure Check Reason Comments Blood Pressure Check Reason Comments Follow Up Reason Comments Well Woman Specialty Diagnoses / Procedures Referred By Contac t Referred To Contact Gynecology Diagnoses History of uterine cancer Procedures CONSULT TO GYNECOLOGY OFFICE/OUTPATIENT [facility] 60-74 MINUTES Henok Martinez MD [address] [place] [phone] Referral ID Status Reason Start Date Expiration Date V isits Requested Visits Authorized [id number] Closed PCP Requested Referral Auto-Generated Referral 01/25/2023 01/25/2024 1 1 Reason Comments 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 Type 2 N IDDM Specialty Diagnoses / Procedures Referred By Contac t Referred To Contact Ophthalmology Diagnoses Type 2 diabetes mellitus without complication, without long-term current use of insulin (HCC) Procedures CONSULT TO OPHTHALMOLOGY OFFICE/OUTPATIENT [facility] 60-74 MINUTES Henok Martinez MD [address] [place] [phone] Referral ID Status Reason Start Date Expiration Date V isits Requested Visits Authorized [id number] Closed PCP Requested Referral 01/25/2023 01/25/2024 1 1 Reason Comments Assessment Patient Education Specialty Diagnoses / Procedures Referred By Contac t Referred To Contact Nutrition Diagnoses Type 2 diabetes mellitus without complication, without long-term current use of insulin (HCC) Procedures CONSULT TO NUTRITION THERAPY MEDICAL NUTRITION ASSMT&IVNTJ INDIV EACH 15 [place] MEDICAL NUTRITION ASSMT&IVNTJ INDIV EACH 15 [place] MEDICAL NUTRITION ASSMT&IVNTJ INDIV EACH 15 [place] MEDICAL NUTRITION ASSMT&IVNTJ INDIV EACH 15 [place] Henok Martinez MD [address] [place] [address] Referral ID Status Reason Start Date Expiration Date V isits Requested Visits Authorized [id number] Closed PCP Requested Referral 01/25/2023 01/25/2024 1 [...] IVCON CT PELVIS W/CONTRAST MATERIAL Sadia Ramsey APRN.CARTRIDGE FILLER [address] [place] [address] [place] [address] Referral ID Status Reason Start Date Expiration Date V isits Requested Visits Authorized [id number] Closed Auto-Generate d Referral 02/08/2023 03/09/2024 1 1 Specialty Diagnoses / Procedures Referred By Contac t Referred To Contact CT IMAGING Diagnoses Chronic cough Abnormal chest x-ray Procedures CT CHEST WO IVCON DIAGNOSTIC COMPUTED TOMOGRAPHY THORAX W/O Nancy Hendrix MD [address] [place] [address] [place] [address] Referral ID Status Reason Start Date Expiration Date V isits Requested Visits Authorized [id number] Closed Auto-Generate d Referral 11/16/2022 12/16/2023 1 [...] Discharge Specialty Diagnoses / Procedures [facility] Referred To Contact XR IMAGING Diagnoses Oropharyngeal dysphagia Procedures XR MODIFIED BARIUM SWALLOW W SPEECH THERAPY XR MODIFIED BARIUM SWALLOW W SPEECH THERAPY RADIOLOGIC EXAM SWALLOW FUNCTION CONTRAST STUDY Virginia Reina APRN.CARTRIDGE FILLER [address] [place] [address] [place] [address] Referral ID Status Reason Start Date Expiration Date V isits Requested Visits Authorized [id number] Closed Auto-Generate d Referral 10/13/2024 11/12/2025 1 1 Reason Comments Results Reason Comments Established Patient Asthma/cough/hemopty sis Reason Onset Date Comments Refill Request 12/15/2024 Reason Comments diabetic supplies Tolu 3 CGM system Reason Comments Appointment Reason Comments Care Coordination Introduction Reason Comments New Patient Specialty Diagnoses / Procedures [facility] Referred To Contact Diagnoses 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) Procedures CONSULT TO HEMATOLOGY/ONCOLOGY OFFICE/OUTPATIENT NEW HIGH MDM 60 MINUTES Ashutosh Freeman MD [address] [facility] [address] [place] [address] Phone: tel: fax: Referral ID Status Reason Start Date Expiration Date V isits Requested Visits Authorized [id number] Closed PCP Requested Referral 01/21/2025 01/21/2026 1 1 Reason Comments avs 01/25 Reason Comments Constipation Reason Onset Date Comments Transition Of Care 01/26/2025 Initial Reason Comments Ambulatory Social Work Food and Transpor tation Reason Comments Chemotherapy Treatment Specialty Diagnoses / Procedures Referred By [facility] Referred To Contact Diagnoses 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) Juan Miguel Yusuf MD [address] [place] [address] Phone: tel: Juan Miguel Yusuf MD [address] [place] [address] Phone: tel: Referral ID Status Reason Start Date Expiration Date V isits Requested Visits Authorized [id number] Authorized 01/27/2025 04/27/2025 99 99 Reason Comments [...] 02/11/2025 [facility] 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 Reason Comments Future Appointment Reason Comments Appt Needs Rescheduled Reason Comments Hospital F/U Reason Onset Date Comments Refill Request 03/08/2025 Reason Onset Date Comments Central Processing Tech- Other 03/10/2025 Chart review Reason Comments Patient [...] W/CONTRAST Juan Miguel Yusuf MD [address] [place] [address] Phone: tel: [place] [phone] Referral ID Status Reason Start Date Expiration Date V isits Requested Visits Authorized [id number] Closed Auto-Generate d Referral 05/25/2025 06/24/2026 1 1 Care Teams (unrecognized sec tion and content) Event Promoter Relationship Specialty Start Date End Date Henok Martinez MD [address] [facility] [place] [address] PCP - General Family Practice 09/14/21 Event Promoter Relationship Specialty Start Date End Date Henok Martinez MD [address] [facility] [place] [address] PCP - General Family Practice 09/14/21 Event Promoter Relationship Specialty Start Date End Date Henok Martinez MD [address] [facility] [place] [address] PCP - General Family Practice 09/14/21 Event Promoter Relationship Specialty Start Date End Date Henok Martinez MD [address] [facility] [place] [address] PCP - General Family Practice 09/14/21 Event Promoter Relationship Specialty Start Date End Date Henok Martinez MD [address] [facility] [place] [address] PCP - General Family Practice 09/14/21 Event Promoter Relationship Specialty Start Date End Date Henok Martinez MD [address] [facility] [place] [address] PCP - General Family Medicine 09/14/21 Event Promoter Relationship Specialty Start Date End Date Henok Martinez MD [address] [facility] [place] [address] PCP - General Family Medicine 09/14/21 Event Promoter Relationship Specialty Start Date End Date Henok Martinez MD [address] [facility] [place] [address] PCP - General Family Medicine 09/14/21 Event Promoter Relationship Specialty Start Date End Date Henok Martinez MD [address] [facility] [place] [address] PCP - General Family Medicine 09/14/21 Event Promoter Relationship Specialty Start Date End Date Henok Martinez MD [address] [facility] [place] [address] PCP - General Family Medicine 09/14/21 Event Promoter Relationship Specialty Start Date End Date Henok Martinez MD [address] [facility] [place] [address] PCP - General Family Medicine 09/14/21 Event Promoter Relationship Specialty Start Date End Date Henok Martinez MD [address] [facility] [place] [address] PCP - General Family Medicine 09/14/21 Event Promoter Relationship Specialty Start Date End Date Henok Martinez MD [address] [facility] [place] [address] PCP - General Family Medicine 09/14/21 Event Promoter Relationship Specialty Start Date End Date Henok Martinez MD [address] [facility] [place] [address] PCP - General Family Medicine 09/14/21 Event Promoter Relationship Specialty Start Date End Date Henok Martinez MD [address] [facility] [place] [address] PCP - General Family Medicine 09/14/21 Event Promoter Relationship Specialty Start Date End Date Henok Martinez MD [address] [facility] [place] [address] PCP - General Family Medicine 09/14/21 Event Promoter Relationship Specialty Start Date End Date Henok Martinez MD [address] [facility] [place] [address] PCP - General Family Medicine 09/14/21 Event Promoter Relationship Specialty Start Date End Date Henok Martinez MD [address] [facility] [place] [address] PCP - General Family Medicine 09/14/21 Event Promoter Relationship Specialty Start Date End Date Michelle, Henok J, MD [address] [place] [address] PCP - General Family Medicine 09/14/21 Event Promoter Relationship Specialty Start Date End Date Henok Martinez MD [address] [place] [address] PCP - General Family Medicine 09/14/21 Team [...] Dr. Dick Love DO Emergency Provider Active Event Promoter Relationship Specialty Start Date End Date Henok Martinez MD [address] [place] [address] PCP - General Family Medicine 09/14/21 Event Promoter Relationship Specialty Start Date End Date Henok Martinez MD [address] [place] [address] PCP - General Family Medicine 09/14/21 Team [...] Dr. Gabe Foster DO Emergency Provider Active Event Promoter Relationship Specialty Start Date End Date Henok Martinez MD [address] [place], [place] 805631 PCP - General Family Medicine 09/14/21 Event Promoter Relationship Specialty Start Date End Date Henok Martinez MD [address] [place], [place] 639731 PCP - General Family Medicine 09/14/21 Event Promoter Relationship Specialty Start Date End Date Henok Martinez MD [address] [place], [place] 765361 PCP - General Family Medicine 09/14/21 Event Promoter Relationship Specialty Start Date End Date Henok Martinez MD [address] [place], [place] 696531 PCP - General Family Medicine 09/14/21 Event Promoter Relationship Specialty Start Date End Date Henok Martinez MD [address] [place], [place] 598731 PCP - General Family Medicine 09/14/21 Team [...] MD Attending Provider, Emergency Provi morales Active Event Promoter Relationship Specialty Start Date End Date Henok Martinez MD [address] [place], [place] 398801 PCP - General Family Medicine 09/14/21 Event Promoter Relationship Specialty Start Date End Date Henok Martinez MD [address] [place] [address] PCP - General Family Medicine 09/14/21 Event Promoter Relationship Specialty Start Date End Date Henok Martinez MD [address] [place] [address] PCP - General Family Medicine 09/14/21 Event Promoter Relationship Specialty Start Date End Date Henok Martinez MD [address] [place] [address] PCP - General Family Medicine 09/14/21 Event Promoter Relationship Specialty Start Date End Date Henok Martinez MD [address] [place] [address] PCP - General Family Medicine 09/14/21 Event Promoter Relationship Specialty Start Date End Date Henok Martinez MD [address] [place] [address] PCP - General Family Medicine 09/14/21 Event Promoter Relationship Specialty Start Date End Date Henok Martinez MD [address] [place] [address] PCP - General Family Medicine 09/14/21 Event Promoter Relationship Specialty Start Date End Date Henok Martinez MD [address] [facility], [place] [address] PCP - General Family Medicine 09/14/21 Event Promoter Relationship Specialty Start Date End Date Henok Martinez MD [address] [place] [address] PCP - General Family Medicine 09/14/21 Event Promoter Relationship Specialty Start Date End Date Henok Martinez MD [address] [place], [place] 950911 PCP - General Family Medicine 09/14/21 Event Promoter Relationship Specialty Start Date End Date Henok Martinez MD [address] [place], [place] 689491 PCP - General Family Medicine 09/14/21 Event Promoter Relationship Specialty Start Date End Date Henok Martinez MD [address] [place], [place] 995861 PCP - General Family Medicine 09/14/21 Event Promoter Relationship Specialty Start Date End Date Henok Martinez MD [address] [place] [address] PCP - General Family Medicine 09/14/21 Event Promoter Relationship Specialty Start Date End Date Henok Martinez MD [address] [place], [place] 404711 PCP - General Family Medicine 09/14/21 Event Promoter Relationship Specialty Start Date End Date Henok Martinez MD [address] [place] [address] PCP - General Family Medicine 09/14/21 Event Promoter Relationship Specialty Start Date End Date Henok Martinez MD [address] [place], [place] 102431 PCP - General Family Medicine 09/14/21 Event Promoter Relationship Specialty Start Date End Date Henok Martinez MD [address] [place], [place] 252081 PCP - General Family Medicine 09/14/21 Clarita Boggs CORPORATE DIRECTOR TALENT ASSESSMENT.CARTRIDGE FILLER [address] [facility] [place] [address] Field Service Consultant Family Medicine 10/05/24 Virginia Reina CORPORATE DIRECTOR TALENT ASSESSMENT.CARTRIDGE FILLER [address] [facility] [place] [address] Field Service [facility]antEating [facility] 10/05/24 Event Promoter Relationship Specialty Start Date End Date Henok Martinez MD [address] [facility] [place] [address] PCP - General Family Medicine 09/14/21 Clarita Boggs APRN.CARTRIDGE FILLER [address] [facility] [place] [address] Field Service [facility]Henry [facility] Medicine 10/05/24 Virginia Reina CORPORATE DIRECTOR TALENT ASSESSMENT.CARTRIDGE FILLER [address] [facility] [place] [address] [facility] 10/05/24 Event Promoter Relationship Specialty Start Date End Date Henok Martinez MD [address] [facility] [place] [address] PCP - General Family Medicine 09/14/21 Clarita Boggs CORPORATE DIRECTOR TALENT ASSESSMENT.CARTRIDGE FILLER [address] [facility] [place] [address] [facility] 10/05/24 Virginia Reina CORPORATE DIRECTOR TALENT ASSESSMENT.CARTRIDGE FILLER [address] [facility] [place] [address] [facility] 10/05/24 Event Promoter Relationship Specialty Start Date End Date Henok Martinez MD [address] [place] [address] PCP - General Family Medicine 09/14/21 Clarita Boggs APRN.CARTRIDGE FILLER [address] [place] [address] Field Service Consultant Family Medicine 10/05/24 Virginia Reina APRN.CARTRIDGE FILLER [address] [place] [address] Field Service ConsultantHenry [facility] Medicine 10/05/24 Event Promoter Relationship Specialty Start Date End Date Henok Martinez MD [address] [place] [address] PCP - General Family Medicine 09/14/21 Clarita Boggs APRN.CARTRIDGE FILLER [address] [facility] [place] [address] Field Service Consultant Family Medicine 10/05/24 Virginia Reina APRN.CARTRIDGE FILLER [address] [place] [address] Field Service Consultant Family Medicine 10/05/24 Event Promoter Relationship Specialty Start Date End Date Henok Martinez MD [address] [place] [address] PCP - General Family Medicine 09/14/21 Clarita Boggs APRN.CARTRIDGE FILLER [address] [facility] [place] [address] Field Service Consultant Family Medicine 10/05/24 Virginia Reina APRN.CARTRIDGE FILLER [address] [place] [address] Field Service Consultant Family [facility] 10/05/24 Event Promoter Relationship Specialty Start Date End Date Henok Martinez MD [address] [place] [address] PCP - General Family Medicine 09/14/21 Clarita Boggs APRN.CARTRIDGE FILLER [address] [place] [address] Field Service Consultant Family Medicine 10/05/24 Virginia Reina APRN.CARTRIDGE FILLER [address] [place] [address] Field Service [facility]antE[facility] 10/05/24 Event Promoter Relationship Specialty Start Date End Date Henok Martinez MD [address] [place] [address] PCP - General Family Medicine 09/14/21 Clarita Boggs CORPORATE DIRECTOR TALENT ASSESSMENT.CARTRIDGE FILLER [address] [place] [address] Field Service Consultant Family Medicine 10/05/24 Virginia Reina CORPORATE DIRECTOR TALENT ASSESSMENT.CARTRIDGE FILLER [address] [place] [address] Field Service Consultant Family Medicine 10/05/24 Event Promoter Relationship Specialty Start Date End Date Henok Martinez MD [address] [place] [address] PCP - General Family Medicine 09/14/21 Clarita Boggs CORPORATE DIRECTOR TALENT ASSESSMENT.CARTRIDGE FILLER [address] [place] [address] Field Service ConsultantEating [facility] 10/05/24 Virginia Reina APRN.CARTRIDGE FILLER [address] [place] [address] [facility] 10/05/24 Event Promoter Relationship Specialty Start Date End Date Henok Martinez MD [address] [place] [address] PCP - General Family Medicine 09/14/21 Clarita Boggs APRN.CARTRIDGE FILLER [address] [place] [address] [facility] 10/05/24 Virginia Reina CORPORATE DIRECTOR TALENT ASSESSMENT.CARTRIDGE FILLER [address] [place] [address] [facility] 10/05/24 Event Promoter Relationship Specialty Start Date End Date Henok Martinez MD [address] [place] [address] PCP - General Family Medicine 09/14/21 Clarita Boggs, CORPORATE DIRECTOR TALENT ASSESSMENT.CARTRIDGE FILLER [address] [place] [address] [facility] 10/05/24 Virginia Reina CORPORATE DIRECTOR TALENT ASSESSMENT.CARTRIDGE FILLER [address] [place] [address] [facility] 10/05/24 Brett Hatch, RN [address] [place] [address] Central Processing Tech 01/04/25 Event Promoter Relationship Specialty Start Date End Date Henok Martinez MD [address] [place] [address] PCP - General Family Medicine 09/14/21 Clarita Boggs, CORPORATE DIRECTOR TALENT ASSESSMENT.CARTRIDGE FILLER [address] [place] [address] Field Service ConsultantEating [facility] 10/05/24 Virginia Reina CORPORATE DIRECTOR TALENT ASSESSMENT.CARTRIDGE FILLER [address] [place] [address] Field Service ConsultantEating [facility] 10/05/24 Event Promoter Relationship Specialty Start Date End Date Henok Martinez MD [address] [place] [address] PCP - General Family Medicine 09/14/21 Clarita Boggs, CORPORATE DIRECTOR TALENT ASSESSMENT.CARTRIDGE FILLER [address] [place] [address] [facility] 10/05/24 Virginia Reina CORPORATE DIRECTOR TALENT ASSESSMENT.CARTRIDGE FILLER [address] [place] [address] [facility] 10/05/24 Team Status: Inactive Member Role Status [...] Provider Active Star t: January 14, 2025 Event Promoter Relationship Specialty Start Date End Date Henok Martinez MD [address] [facility] [place] [address] PCP - General Family Medicine 09/14/21 Clarita Boggs APRN.CARTRIDGE FILLER [address] [place] [address] Field Service ConsultantEating [facility] 10/05/24 Virginia Reina APRN.CARTRIDGE FILLER [address] [facility] [place] [address] Field Service Consultant Family [facility] 10/05/24 Stuart Dias RN Transitional 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 01/25/25 Juan Miguel Yusuf MD [address] [facility] [address] Hematology/Oncology 01/25/25 Maria Isabel Silverio RN [address] [facility] [address] Specialty 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 Hematology/Oncology 01/25/25 Event Promoter Relationship Specialty Start Date End Date Henok Martinez MD [address] [facility] [place] [address] PCP - General Family Medicine 09/14/21 Clarita Boggs APRN.CARTRIDGE FILLER [address] [place] [address] Field Service Consultant Family [facility] 10/05/24 Virginia Reina APRN.CARTRIDGE FILLER [address] [place] [address] [facility] 10/05/24 Stuart Dias, retort forker Coordinator 01/25/25 Juan Miguel Yusuf MD [address] [place] [address] Hematology/Oncology 01/25/25 Maria Isabel Silverio, MAGNUS [address] [place] [address] Specialty 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 Hematology/Oncology 01/25/25 Event Promoter Relationship Specialty Start Date End Date Henok Martinez MD [address] [place] [address] PCP - General Family Medicine 09/14/21 Clarita Boggs, CORPORATE DIRECTOR TALENT ASSESSMENT.CARTRIDGE FILLER [address] [facility] [place] [address] [facility] 10/05/24 Virginia Reina, CORPORATE DIRECTOR TALENT ASSESSMENT.CARTRIDGE FILLER [address] [place] [address] [facility] 10/05/24 Stuart Dias retort forker Coordinator 01/25/25 Juan Miguel Yusuf MD [address] [place] [address] Hematology/Oncology 01/25/25 Maria Isabel Silverio, MAGNUS [address] [place] [address] Specialty 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 Hematology/Oncology 01/25/25 Event Promoter Relationship Specialty Start Date End Date Henok Martinez MD [address] [place] [address] PCP - General Family Medicine 09/14/21 Clarita Boggs APRN.CARTRIDGE FILLER [address] [place] [address] Field Service Consultant Family Medicine 10/05/24 Virginia Reina APRN.CARTRIDGE FILLER [address] [place] [address] Field Service Consultant Family Medicine 10/05/24 Stuart Dias, retort forker Coordinator 01/25/25 Juan Miguel Yusuf MD [address] [place] [address] Hematology/Oncology 01/25/25 Maria Isabel Silverio RN [address] [place] [address] Specialty 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 Hematology/Oncology 01/25/25 Event Promoter Relationship Specialty Start Date End Date Henok Martinez MD [address] [place] [address] PCP - General Family Medicine 09/14/21 Clarita Boggs APRN.CARTRIDGE FILLER [address] [place] [address] Field Service Consultant Family Medicine 10/05/24 Virginia Reina APRN.CARTRIDGE FILLER [address] [place] [address] Field Service Consultant Family Medicine 10/05/24 Stuart Dias RN Transitional 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 01/25/25 Juan Miguel Yusuf MD [address] [place] [address] Hematology/Oncology 01/25/25 Maria Isabel Silverio, MAGNUS [address] [place] [address] Specialty 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 Hematology/Oncology 01/25/25 Event Promoter Relationship Specialty Start Date End Date Henok Martinez MD [address] [place] [address] PCP - General Family Medicine 09/14/21 Clarita Boggs APRN.CARTRIDGE FILLER [address] [place] [address] Field Service Consultant Family Medicine 10/05/24 Virginia Reina CORPORATE DIRECTOR TALENT ASSESSMENT.CARTRIDGE FILLER [address] [place] [address] Field Service Consultant Family Medicine 10/05/24 Stuart Dias RN Transitional 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 01/25/25 Juan Miguel Yusuf MD [address] [place] [address] Hematology/Oncology 01/25/25 Maria Isabel Silverio, MAGNUS [address] [place] [address] Specialty 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 Hematology/Oncology 01/25/25 Event Promoter Relationship Specialty Start Date End Date Henok Martinez MD [address] [place] [address] PCP - General Family Medicine 09/14/21 Clarita Boggs CORPORATE DIRECTOR TALENT ASSESSMENT.CARTRIDGE FILLER [address] [facility] [place] [address] Field Service Consultant Family [facility] 10/05/24 Virginia Reina, CORPORATE DIRECTOR TALENT ASSESSMENT.CARTRIDGE FILLER [address] [place] [address] Field Service Consultant Family Medicine 10/05/24 Stuart Dias retort forker Coordinator 01/25/25 Juan Miguel Yusuf MD [address] [place] [address] Hematology/Oncology 01/25/25 Maria Isabel Silverio, MAGNUS [address] [place] [address] Specialty 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 Hematology/Oncology 01/25/25 Escobar [place] LSW 01/27/25 Event Promoter Relationship Specialty Start Date End Date Henok Martinez MD [address] [place] [address] PCP - General Family Medicine 09/14/21 Clarita Boggs, CORPORATE DIRECTOR TALENT ASSESSMENT.CARTRIDGE FILLER [address] [facility] [place] [address] Field Service Consultant Family Medicine 10/05/24 Virginia Reina, CORPORATE DIRECTOR TALENT ASSESSMENT.CARTRIDGE FILLER [address] [place] [address] Field Service Consultant Family Medicine 10/05/24 Stuart Dias RN Transitional 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 01/25/25 Juan Miguel Yusuf MD [address] [place] [address] Hematology/Oncology 01/25/25 Maria Isabel Silverio RN [address] [place] [address] Specialty 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 Hematology/Oncology 01/25/25 Escobar [place], [facility] 01/27/25 Event Promoter Relationship Specialty Start Date End Date Henok Martinez MD [address] [place] [address] PCP - General Family Medicine 09/14/21 Clarita Boggs, CORPORATE DIRECTOR TALENT ASSESSMENT.CARTRIDGE FILLER [address] [place] [address] Field Service Consultant Family Medicine 10/05/24 Virginia Reina CORPORATE DIRECTOR TALENT ASSESSMENT.CARTRIDGE FILLER [address] [place] [address] Field Service Consultant Family Medicine 10/05/24 Stuart Dias RN Transitional 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 01/25/25 Juan Miguel Yusuf MD [address] [place] [address] Hematology/Oncology 01/25/25 Maria Isabel Silverio RN [address] [place] [address] Specialty 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 Hematology/Oncology 01/25/25 Escobar [place], [facility] 01/27/25 Event Promoter Relationship Specialty Start Date End Date Henok Martinez MD [address] [place] [address] PCP - General Family Medicine 09/14/21 Clarita Boggs, CORPORATE DIRECTOR TALENT ASSESSMENT.CARTRIDGE FILLER [address] [place] [address] Field Service Consultant Family Medicine 10/05/24 Virginia Reina, CORPORATE DIRECTOR TALENT ASSESSMENT.CARTRIDGE FILLER [address] [place] [address] Field Service Consultant Family Medicine 10/05/24 Stuart Dias retort forker Coordinator 01/25/25 Juan Miguel Yusuf MD [address] [place] [address] Hematology/Oncology 01/25/25 Maria Isabel Silverio, RN [address] [place] [address] Specialty 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 Hematology/Oncology 01/25/25 Escobar [place] LSW 01/27/25 Event Promoter Relationship Specialty Start Date End Date Henok Martinez MD [address] [facility] [place] [address] PCP - General Family Medicine 09/14/21 Clarita Boggs, CORPORATE DIRECTOR TALENT ASSESSMENT.CARTRIDGE FILLER [address] [facility] [place] [address] [facility] Family [facility] 10/05/24 Virginia Reina, CORPORATE DIRECTOR TALENT ASSESSMENT.CARTRIDGE FILLER [address] [place] [address] Field Service Consultant Family Medicine 10/05/24 Stuart Dias RN Transitional 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 01/25/25 Juan Miguel Yusuf MD [address] [place] [address] Hematology/Oncology 01/25/25 Maria Isabel Silverio, MAGNUS [address] [place] [address] Specialty 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 Hematology/Oncology 01/25/25 Escobar [place], [facility] 01/27/25 Event Promoter Relationship Specialty Start Date End Date Henok Martinez MD [address] [facility] [place] [address] PCP - General Family Medicine 09/14/21 Clarita Boggs APRN.CARTRIDGE FILLER [address] [facility] [place] [address] Field Service Consultant Family [facility] 10/05/24 Virginia Reina APRN.CARTRIDGE FILLER [address] [facility] [place] [address] Field Service Consultant Family Medicine 10/05/24 Stuart Dias RN Transitional 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 01/25/25 Juan Miguel Yusuf MD [address] [address] Hematology/Oncology 01/25/25 Maria Isabel Silverio RN [address] [facility] [address] Specialty 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 Hematology/Oncology 01/25/25 Escobar [place], [facility] 01/27/25 Event Promoter Relationship Specialty Start Date End Date Henok Martinez MD [address] [facility] [place] [address] PCP - General Family Medicine 09/14/21 Clarita Boggs APRN.CARTRIDGE FILLER [address] [facility] [place] [address] Field Service Consultant Family [facility] 10/05/24 Virginia Reina APRN.CARTRIDGE FILLER [address] [facility] [place] [address] Field Service Consultant Family Medicine 10/05/24 Stuart Dias RN Transitional 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 01/25/25 Juan Miguel Yusuf MD [address] [place] [address] Hematology/Oncology 01/25/25 Maria Isabel Silverio, MAGNUS [address] [place] [address] Specialty 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 Hematology/Oncology 01/25/25 Escobar [place] LSW 01/27/25 Event Promoter Relationship Specialty Start Date End Date Henok Maritnez MD [address] [place] [address] PCP - General Family Medicine 09/14/21 Clarita Boggs APRN.CARTRIDGE FILLER [address] [facility] [place] [address] Field Service Consultant Family [facility] 10/05/24 Virginia Reina APRN.CARTRIDGE FILLER [address] [facility] [place] [address] Field Service Consultant Family [facility] 10/05/24 Stuart Dias RN Transitional 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 01/25/25 Juan Miguel Yusuf MD [address] [place] [address] Hematology/Oncology 01/25/25 Maria Isabel Silverio, MAGNUS [address] [place] [address] Specialty 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 Hematology/Oncology 01/25/25 Ayaz Nguyễn MD [address] [place], [place] [id number] General Surgery 02/04/25 Event Promoter Relationship Specialty Start Date End Date Henok Martinez MD [address] [place], [place] [address] PCP - General Family Medicine 09/14/21 Clarita Boggs, SHY.CARTRIDGE FILLER [address] [place] [address] Field Service Consultant Family [facility] 10/05/24 Virginia Reina CORPORATE DIRECTOR TALENT ASSESSMENT.CARTRIDGE FILLER [address] [place] [address] Field Service Consultant Family [facility] 10/05/24 Stuart Dias RN Transitional 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 01/25/25 Juan Miguel Yusuf MD [address] [place] [address] Hematology/Oncology 01/25/25 Maria Isabel Silverio RN [address] [place] [address] Specialty 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 Hematology/Oncology 01/25/25 Ayaz Nguyễn MD [address] [place], [place] [id number] General Surgery 02/04/25 Addison Holley LISW [address] [place] [address] Metal Flooring Installer Hematology/Oncology 02/05/25 Event Promoter Relationship Specialty Start Date End Date Henok Martinez MD [address] [place], [place] [address]65[address] PCP - General Family Medicine 09/14/21 Clarita Boggs, CORPORATE DIRECTOR TALENT ASSESSMENT.CARTRIDGE FILLER [address] [facility] [place] [address] Field Service Consultant Family Medicine 10/05/24 Virginia Reina, CORPORATE DIRECTOR TALENT ASSESSMENT.CARTRIDGE FILLER [address] [place] [address] Field Service Consultant Family Medicine 10/05/24 Stuart Dias retort forker Coordinator 01/25/25 Juan Miguel Yusuf MD [address] [facility] [place] [address] Hematology/Oncology 01/25/25 Maria Isabel Silverio RN [address] [place] [address] Specialty 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 Hematology/Oncology 01/25/25 Ayaz Nguyễn MD 1 [place] [address] General Surgery 02/04/25 Addison Holley LISW [address] [place] [address] Metal Flooring Installer Hematology/Oncology 02/05/25 Event Promoter Relationship Specialty Start Date End Date Henok Martinez MD [address] [facility] [place] [address] PCP - General Family Medicine 09/14/21 Clarita Boggs, CORPORATE DIRECTOR TALENT ASSESSMENT.CARTRIDGE FILLER [address] [facility] [place] [address] Field Service Consultant Family Medicine 10/05/24 Virginia Reina, CORPORATE DIRECTOR TALENT ASSESSMENT.CARTRIDGE FILLER [address] [facility] [place] [address] Field Service Consultant Family Medicine 10/05/24 Stuart Dias RN Transitional 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 01/25/25 Juan Miguel Yusuf MD [address] [place] [address] Hematology/Oncology 01/25/25 Maria Isabel Silverio, MAGNUS [address] [place] [address] Specialty 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 Hematology/Oncology 01/25/25 Ayaz Nguyễn MD 1 [place] [address] General Surgery 02/04/25 Addison Holley LISW [address] [place] [address] Metal Flooring Installer Hematology/Oncology 02/05/25 Event Promoter Relationship Specialty Start Date End Date Henok Martinez MD [address] [place] [address] PCP - General Family Medicine 09/14/21 Clarita Boggs, CORPORATE DIRECTOR TALENT ASSESSMENT.CARTRIDGE FILLER [address] [facility] [place] [address] Field Service Consultant Family Medicine 10/05/24 Virginia Reina, CORPORATE DIRECTOR TALENT ASSESSMENT.CARTRIDGE FILLER [address] [place] [address] Field Service Consultant Family Medicine 10/05/24 Stuart Dias RN Transitional 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 01/25/25 Juan Miguel Yusuf MD [address] [place] [address] Hematology/Oncology 01/25/25 Maria Isabel Silverio, MAGNUS [address] [place] [address] Specialty 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 Hematology/Oncology 01/25/25 Ayaz Nguyễn MD [address] [place], [place] [id number] General Surgery 02/04/25 Addison Holley LISW [address] [place] [address] Metal Flooring Installer Hematology/Oncology 02/05/25 Event Promoter Relationship Specialty Start Date End Date Henok Martinez MD [address] [facility] [place] [address] PCP - General Family Medicine 09/14/21 Clarita Boggs APRN.CARTRIDGE FILLER [address] [place] [address] Field Service Consultant Family Medicine 10/05/24 Virginia Reina APRN.CARTRIDGE FILLER [address] [facility] [place] [address] Field Service Consultant Family Medicine 10/05/24 Stuart Dias RN Transitional 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 01/25/25 Juan Miguel Yusuf MD [address] [facility] [address] Hematology/Oncology 01/25/25 Maria Isabel Silverio, MAGNUS [address] [facility] [address] Specialty 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 Hematology/Oncology 01/25/25 Ayaz Nguyễn MD [address] [place], [place] [id number] General Surgery 02/04/25 Addison Holley LISW [address] [place] [address] Metal Flooring Installer Hematology/Oncology 02/05/25 Event Promoter Relationship Specialty Start Date End Date Angier, Henok J, MD [address] [facility] [place] [address]201 PCP - General Family Medicine 09/14/21 Clarita Boggs, CORPORATE DIRECTOR TALENT ASSESSMENT.CARTRIDGE FILLER [address] [place] [address] Field Service Consultant Family Medicine 10/05/24 Virginia Reina CORPORATE DIRECTOR TALENT ASSESSMENT.CARTRIDGE FILLER [address] [facility] [place] [address] Field Service Consultant Family Medicine 10/05/24 Stuart Dias retort forker Coordinator 01/25/25 Juan Miguel Yusuf MD [address] [facility] [address] Hematology/Oncology 01/25/25 Maria Isabel Silverio, MAGNUS [address] [facility] [address] Specialty 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 Hematology/Oncology 01/25/25 Ayaz Nguyễn MD [address] [place], [place] [id number] General Surgery 02/04/25 Addison Holley LISW [address] [place] [address] Metal Flooring Installer Hematology/Oncology 02/05/25 Event Promoter Relationship Specialty Start Date End Date Henok Martinez MD [address] [facility] [place] [address] PCP - General Family Medicine 09/14/21 Clarita Boggs, CORPORATE DIRECTOR TALENT ASSESSMENT.CARTRIDGE FILLER [address] [place] [address] Field Service Consultant Family Medicine 10/05/24 Virginia Reina, CORPORATE DIRECTOR TALENT ASSESSMENT.CARTRIDGE FILLER [address] [place] [address] Field Service Consultant Family Medicine 10/05/24 Juan Miguel Yusuf MD [address] [place] [address] Hematology/Oncology 01/25/25 Maria Isabel Silverio RN [address] [facility] [place] [address] Specialty 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 Hematology/Oncology 01/25/25 Ayaz Nguyễn MD [address] [place], [place] [id number] General Surgery 02/04/25 Addison Holley LISW [address] [place] [address] Metal Flooring Installer Hematology/Oncology 02/05/25 Paulette Cagle RN Primary Care Head Golf Professional 02/15/25 Event Promoter Relationship Specialty Start Date End Date Henok Martinez MD [address] [place] [address] PCP - General Family Medicine 09/14/21 Clarita Boggs, CORPORATE DIRECTOR TALENT ASSESSMENT.CARTRIDGE FILLER [address] [facility] [place] [address] Field Service Consultant Family Medicine 10/05/24 Virginia Reina, CORPORATE DIRECTOR TALENT ASSESSMENT.CARTRIDGE FILLER [address] [place] [address] Field Service Consultant Family Medicine 10/05/24 Juan Miguel Yusuf MD [address] [place] [address] Hematology/Oncology 01/25/25 Maria Isabel Silverio, MAGNUS [address] [place] [address] Specialty 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 Hematology/Oncology 01/25/25 Ayaz Nguyễn MD 1 [place] [address] General Surgery 02/04/25 Addison Holley LISW [address] [place] [address] Metal Flooring Installer Hematology/Oncology 02/05/25 Paulette Cagle RN Primary Care Head Golf Professional 02/15/25 Event Promoter Relationship Specialty Start Date End Date Henok Martinez MD [address] [facility] [place] [address] PCP - General Family Medicine 09/14/21 Clarita Boggs, CORPORATE DIRECTOR TALENT ASSESSMENT.CARTRIDGE FILLER [address] [place] [address] Field Service Consultant Family Medicine 10/05/24 Virginia Reina, CORPORATE DIRECTOR TALENT ASSESSMENT.CARTRIDGE FILLER [address] [facility] [place] [address] Field Service Consultant Family Medicine 10/05/24 Juan Miguel Yusuf MD [address] [place] [address] Hematology/Oncology 01/25/25 Maria Isabel Silverio, MAGNUS [address] [place] [address] Specialty 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 Hematology/Oncology 01/25/25 Ayaz Nguyễn MD [address] [place], [place] [id number] General Surgery 02/04/25 Addison Holley LISW [address] [place] [address] Metal Flooring Installer Hematology/Oncology 02/05/25 Paulette Cagle, orthopedic coder Head Golf Professional 02/15/25 Event Promoter Relationship Specialty Start Date End Date Henok Martinez MD [address] [place], [place] [address]271 PCP - General Family Medicine 09/14/21 Clarita Boggs APRN.CARTRIDGE FILLER [address] [place], [place] [address] Field Service Consultant Family [facility] 10/05/24 Virginia Reina, CORPORATE DIRECTOR TALENT ASSESSMENT.CARTRIDGE FILLER [address] [place], [place] [address] Field Service Consultant Family [facility] 10/05/24 Juan Miguel Yusuf MD [address] [place], [place] [id number] Hematology/Oncology 01/25/25 Maria Isabel Silverio RN [address] [place], [place] [id number] Specialty 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 Hematology/Oncology 01/25/25 Ayaz Nguyễn MD [address] [place], [place] [id number] General Surgery 02/04/25 Addison Holley LISW [address] [place] [address] Metal Flooring Installer Hematology/Oncology 02/05/25 Paulette Cagle, orthopedic coder Head Golf Professional 02/15/25 Event Promoter Relationship Specialty Start Date End Date Henok Martinez MD [address] [place] [address] PCP - General Family Medicine 09/14/21 Clarita Boggs APRN.CARTRIDGE FILLER [address] [place] [address] Field Service Consultant Family Medicine 10/05/24 Virginia Reina APRN.CARTRIDGE FILLER [address] [place] [address] Field Service Consultant Family Medicine 10/05/24 Juan Miguel Yusuf MD [address] [place] [address] Hematology/Oncology 01/25/25 Maria Isabel Silverio RN [address] [facility] [facility] [place] [address] Specialty 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 Hematology/Oncology 01/25/25 Ayaz Nguyễn MD [address] [place], [place] [id number] General Surgery 02/04/25 Addison Holley LISW [address] [place] [address] Metal Flooring Installer Hematology/Oncology 02/05/25 Paulette Cagle, orthopedic coder Head Golf Professional 02/15/25 Event Promoter Relationship Specialty Start Date End Date Henok Martinez MD [address] [facility] [place] [address] PCP - General Family Medicine 09/14/21 Clarita Boggs APRN.CARTRIDGE FILLER [address] [facility] [place] [address] Field Service Consultant Family Medicine 10/05/24 Virginia Reina, CORPORATE DIRECTOR TALENT ASSESSMENT.CARTRIDGE FILLER [address] [place] [address] Field Service Consultant Family Medicine 10/05/24 Juan Miguel Yusuf MD [address] [place] [address] Hematology/Oncology 01/25/25 Maria Isabel Silverio, MAGNUS [address] [place] [address] Specialty 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 Hematology/Oncology 01/25/25 Ayaz Nguyễn MD [address] [place], [place] [id number] General Surgery 02/04/25 Addison Holley LISW [address] [place] [address] Metal Flooring Installer Hematology/Oncology 02/05/25 Paulette Cagle, orthopedic coder Head Golf Professional 02/15/25 Event Promoter Relationship Specialty Start Date End Date Henok Martinez MD [address] [place] [address] PCP - General Family Medicine 09/14/21 Clarita Boggs, CORPORATE DIRECTOR TALENT ASSESSMENT.CARTRIDGE FILLER [address] [place] [address] Field Service Consultant Family Medicine 10/05/24 Virginia Reina, CORPORATE DIRECTOR TALENT ASSESSMENT.CARTRIDGE FILLER [address] [place] [address] Field Service Consultant Family Medicine 10/05/24 Juan Miguel Yusuf MD [address] [place] [address] Hematology/Oncology 01/25/25 Maria Isabel Silverio RN [address] [place] [address] Specialty 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 Hematology/Oncology 01/25/25 Ayaz Nguyễn MD [address] [place], [place] [id number] General Surgery 02/04/25 Addison Holley LISW [address] [place] [address] Metal Flooring Installer Hematology/Oncology 02/05/25 Paulette Cagle RN Primary Care Head Golf Professional 02/15/25 Event Promoter Relationship Specialty Start Date End Date Henok Martinez MD [address] [facility] [place] [address] PCP - General Family Medicine 09/14/21 Clarita Boggs, CORPORATE DIRECTOR TALENT ASSESSMENT.CARTRIDGE FILLER [address] [facility] [place] [address] Field Service Consultant Family Medicine 10/05/24 Virginia Reina, CORPORATE DIRECTOR TALENT ASSESSMENT.CARTRIDGE FILLER [address] [facility] [place] [address] Field Service Consultant Family Medicine 10/05/24 Juan Miguel Yusuf MD [address] [place] [address] Hematology/Oncology 01/25/25 Maria Isabel Silverio, MAGNUS [address] [place] [address] Specialty 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 Hematology/Oncology 01/25/25 Ayaz Nguyễn MD 1 [place] [address] General Surgery 02/04/25 Addison Holley LISW [address] [place] [address] Metal Flooring Installer Hematology/Oncology 02/05/25 Paulette Cagle, orthopedic coder Head Golf Professional 02/15/25 Event Promoter Relationship Specialty Start Date End Date Henok Martinez MD [address] [place] [address] PCP - General Family Medicine 09/14/21 Clarita Boggs APRN.CARTRIDGE FILLER [address] [place] [address] Field Service Consultant Family [facility] 10/05/24 Virginia Reina APRN.CARTRIDGE FILLER [address] [place] [address] Field Service Consultant Family [facility] 10/05/24 Juan Miguel Yusuf MD [address] [place], [place] [address]018 [phone] Hematology/Oncology 01/25/25 Maria Isabel Silverio RN [address] [place], [place] [phone] Specialty 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 Hematology/Oncology 01/25/25 Ayaz Nguyễn MD [address] [place], [place] [id number] General Surgery 02/04/25 Addison Holley LISW [address] [place] [address] Metal Flooring Installer Hematology/Oncology 02/05/25 Paulette Cagle, orthopedic coder Head Golf Professional 02/15/25 Event Promoter Relationship Specialty Start Date End Date Henok Martinez MD [address] [facility] [place] [address] PCP - General Family Medicine 09/14/21 Clarita Boggs APRN.CARTRIDGE FILLER [address] [facility] [place] [address] Field Service Consultant Family Medicine 10/05/24 Virginia Reina APRN.CARTRIDGE FILLER [address] [facility] [place] [address] Field Service Consultant Family Medicine 10/05/24 Juan Miguel Yusuf MD [address] [address] Hematology/Oncology 01/25/25 Maria Isabel Silverio, MAGNUS [address] [place] [address] Specialty 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 Hematology/Oncology 01/25/25 Ayaz Nguyễn MD 1 [place] [address] General Surgery 02/04/25 Addison Holley LISW [address] [place] [address] Metal Flooring Installer Hematology/Oncology 02/05/25 Event Promoter Relationship Specialty Start Date End Date Henok Martinez MD [address] [facility] [place] [address] PCP - General Family Medicine 09/14/21 Clarita Boggs APRN.CARTRIDGE FILLER [address] [facility] [place] [address] Field Service Consultant Family Medicine 10/05/24 Virginia Reina APRN.CARTRIDGE FILLER [address] [facility] [place] [address] Field Service Consultant Family Medicine 10/05/24 Juan Miguel Yusuf MD [address] [place] [address] Hematology/Oncology 01/25/25 Maria Isabel Silverio RN [address] [place] [id number] Specialty 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 Hematology/Oncology 01/25/25 Ayaz Nguyễn MD [address] [place] [address] General Surgery 02/04/25 Addison Holley LISW [address] [place] [address] Metal Flooring Installer Hematology/Oncology 02/05/25 Event Promoter Relationship Specialty Start Date End Date Henok Martinez MD [address] [place] [address] PCP - General Family Medicine 09/14/21 Clarita Boggs, SHY.CARTRIDGE FILLER [address] [place] [address] Field Service Consultant Family Medicine 10/05/24 Virginia Reina, CORPORATE DIRECTOR TALENT ASSESSMENT.CARTRIDGE FILLER [address] [place] [address] Field Service Consultant Family Medicine 10/05/24 Juan Miguel Yusuf MD [address] [place] [address] Hematology/Oncology 01/25/25 Maria Isabel Silverio, MAGNUS [address] [place] [address] Specialty 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 Hematology/Oncology 01/25/25 Ayaz Nguyễn MD [address] [place], [place] [id number] General Surgery 02/04/25 Addison Holley LISW [address] [place] [address] Metal Flooring Installer Hematology/Oncology 02/05/25 Event Promoter Relationship Specialty Start Date End Date Henok Martinez MD [address] [facility] [place] [address] PCP - General Family Medicine 09/14/21 Clarita Boggs CORPORATE DIRECTOR TALENT ASSESSMENT.CARTRIDGE FILLER [address] [place] [address] Field Service Consultant Family Medicine 10/05/24 Virginia Reina, CORPORATE DIRECTOR TALENT ASSESSMENT.CARTRIDGE FILLER [address] [facility] [place] [address] Field Service Consultant Family Medicine 10/05/24 Juan Miguel Yusuf MD [address] [facility] [address] Hematology/Oncology 01/25/25 Maria Isabel Silverio, MAGNUS [address] [facility] [address] Specialty 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 Hematology/Oncology 01/25/25 Ayaz Nguyễn MD [address] [place], [place] [id number] General Surgery 02/04/25 Addison Holley, JOSÉ [address] [place] [address] Metal Flooring Installer Hematology/Oncology 02/05/25 Event Promoter Relationship Specialty Start Date End Date Henok Martinez MD [address] [place] [address] PCP - General Family Medicine 09/14/21 Clarita Boggs APRN.CARTRIDGE FILLER [address] [place] [address] Field Service Consultant Family Medicine 10/05/24 Virginia Reina APRN.CARTRIDGE FILLER [address] [place] [address] Field Service Consultant Family Medicine 10/05/24 Juan Miguel Yusuf MD [address] [place] [address] Hematology/Oncology 01/25/25 Maria Isabel Silverio, MAGNUS [address] [place] [address] Specialty 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 Hematology/Oncology 01/25/25 Ayaz Nguyễn MD [address] [place], [place] [id number] General Surgery 02/04/25 Addison Holley LISW [address] [place] [address] Metal Flooring Installer Hematology/Oncology 02/05/25 Lamar Stoner MD [address] [place] [address] Physician Radiation Oncology 04/08/25 Event Promoter Relationship Specialty Start Date End Date Henok Martinez MD [address] [place] [address] PCP - General Family Medicine 09/14/21 Clarita Boggs APRN.CARTRIDGE FILLER [address] [place] [address] Field Service Consultant Family Medicine 10/05/24 Virginia Reina APRN.CARTRIDGE FILLER [address] [place] [address] Field Service Consultant Family Medicine 10/05/24 Juan Miguel Yusuf MD [address] [place] [address] Hematology/Oncology 01/25/25 Maria Isabel Silverio RN [address] [place] [address] Specialty 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 Hematology/Oncology 01/25/25 Ayaz Nguyễn MD [address] [place] [address] General Surgery 02/04/25 Addison Holley LISW [address] [place] [address] Metal Flooring Installer Hematology/Oncology 02/05/25 Event Promoter Relationship Specialty Start Date End Date Henok Martinez MD [address] [place] [address] PCP - General Family Medicine 09/14/21 Clarita Boggs APRN.CARTRIDGE FILLER [address] [place] [address] Field Service Consultant Family Medicine 10/05/24 Virginia Reina APRN.CARTRIDGE FILLER [address] [place] [address] Field Service Consultant Family Medicine 10/05/24 Juan Miguel Yusuf MD [address] [place] [address] Hematology/Oncology 01/25/25 Maria Isabel Silverio RN [address] [place] [address] Specialty 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 Hematology/Oncology 01/25/25 Ayaz Nguyễn MD [address] [place] [address] General Surgery 02/04/25 Addison Holley LISW [address] [place] [address] Metal Flooring Installer Hematology/Oncology 02/05/25 Lamar Stoner MD [address] [place] [address] Physician Radiation Oncology 04/08/25 Event Promoter Relationship Specialty Start Date End Date Henok Martinez MD [address] [place] [address] PCP - General Family Medicine 09/14/21 Clarita Boggs, SHY.CARTRIDGE FILLER [address] [place] [address] Field Service Consultant Family Medicine 10/05/24 Virginia Reina, CORPORATE DIRECTOR TALENT ASSESSMENT.CARTRIDGE FILLER [address] [place] [address] Field Service Consultant Family Medicine 10/05/24 Juan Miguel Yusuf MD [address] [place] [address] Hematology/Oncology 01/25/25 Maria Isabel Silverio RN [address] [place] [address] Specialty 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 Hematology/Oncology 01/25/25 Ayaz Nguyễn MD [address] [place], [place] [id number] General Surgery 02/04/25 Addison Holley LISW [address] [place] [address] Metal Flooring Installer Hematology/Oncology 02/05/25 Lamar Stoner MD [address] [facility] [address] Physician Radiation Oncology 04/08/25 Event Promoter Relationship Specialty Start Date End Date Henok Martinez MD [address] [facility] [place] [address] PCP - General Family Medicine 09/14/21 Clarita Boggs, CORPORATE DIRECTOR TALENT ASSESSMENT.CARTRIDGE FILLER [address] [place] [address] Field Service Consultant Family Medicine 10/05/24 Virginia Reina, CORPORATE DIRECTOR TALENT ASSESSMENT.CARTRIDGE FILLER [address] [facility] [place] [address] Field Service Consultant Family Medicine 10/05/24 Juan Miguel Yusuf MD [address] [place] [address] Hematology/Oncology 01/25/25 Maria Isabel Silverio, MAGNUS [address] [facility] [address] Specialty 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 Hematology/Oncology 01/25/25 Ayaz Nguyễn MD [address] [place], [place] [id number] General Surgery 02/04/25 Addison Holley LISW [address] [place] [address] Metal Flooring Installer Hematology/Oncology 02/05/25 Lamar Stoner MD [address] [place] [address] Physician Radiation Oncology 04/08/25 Event Promoter Relationship Specialty Start Date End Date Henok Martinez MD [address] [place] [address] PCP - General Family Medicine 09/14/21 Clarita Boggs APRN.CARTRIDGE FILLER [address] [place] [address] Field Service Consultant Family Medicine 10/05/24 Virginia Reina APRN.CARTRIDGE FILLER [address] [place] [address] Field Service Consultant Family Medicine 10/05/24 Juan Miguel Yusuf MD [address] [place] [address] Hematology/Oncology 01/25/25 Maria Isabel Silverio, MAGNUS [address] [place] [address] Specialty 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 Hematology/Oncology 01/25/25 Ayaz Nguyễn MD [address] [place] [address] General Surgery 02/04/25 Addison Holley LISW [address] [place] [address] Metal Flooring Installer Hematology/Oncology 02/05/25 Lamar Stoner MD [address] [place] [address] Physician Radiation Oncology 04/08/25 Event Promoter Relationship Specialty Start Date End Date Henok Martinez MD [address] [place] [address] PCP - General Family Medicine 09/14/21 Clarita Boggs, SHY.CARTRIDGE FILLER [address] [place] [address] Field Service Consultant Family Medicine 10/05/24 Virginia Reina CORPORATE DIRECTOR TALENT ASSESSMENT.CARTRIDGE FILLER [address] [place] [address] Field Service Consultant [facility] 10/05/24 Juan Miguel Yusuf MD [address] [place] [address] Hematology/Oncology 01/25/25 Maria Isabel Silverio, RN [address] [place] [address] Specialty 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 Hematology/Oncology 01/25/25 Ayaz Nguyễn MD [address] [place], [place] [id number] General Surgery 02/04/25 Addison Holley LISW [address] [place] [address] Metal Flooring Installer Hematology/Oncology 02/05/25 Lamar Stoner MD [address] [place] [address] Physician Radiation Oncology 04/08/25 Event Promoter Relationship Specialty Start Date End Date Henok Martinez MD [address] [facility] [place] [address] PCP - General Family Medicine 09/14/21 Clarita Boggs APRN.CARTRIDGE FILLER [address] [facility] [place] [address] Field Service Consultant Family [facility] 10/05/24 Virginia Reina APRN.CARTRIDGE FILLER [address] [facility] [place] [address] Field Service Consultant Family [facility] 10/05/24 Juan Miguel Yusuf MD [address] [address] Hematology/Oncology 01/25/25 Maria Isabel Silverio RN [address] [place] [address] Specialty 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 Hematology/Oncology 01/25/25 Ayaz Nguyễn MD [address] [place], [place] [id number] General Surgery 02/04/25 Addison Holley LISW [address] [place] [address] Metal Flooring Installer Hematology/Oncology 02/05/25 Lamar Stoner MD [address] [place] [address] Physician Radiation Oncology 04/08/25 Event Promoter Relationship Specialty Start Date End Date Henok Martinez MD [address] [facility] [place] [address] PCP - General Family Medicine 09/14/21 Clarita Boggs APRN.CARTRIDGE FILLER [address] [facility] [place] [address] Field Service Consultant Family Medicine 10/05/24 Virginia Reina APRN.CARTRIDGE FILLER [address] [place] [address] Field Service Consultant Family Medicine 10/05/24 Juan Miguel Yusuf MD [address] [place] [address] Hematology/Oncology 01/25/25 Maria Isabel Silverio, MAGNUS [address] [place] [address] Specialty 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 Hematology/Oncology 01/25/25 Ayaz Nguyễn MD [address] [place], [place] [id number] General Surgery 02/04/25 Addison Holley LISW [address] [place] [address] Metal Flooring Installer Hematology/Oncology 02/05/25 Lamar Stoner MD [address] [place] [address] Physician Radiation Oncology 04/08/25 Event Promoter Relationship Specialty Start Date End Date Henok Martinez MD [address] [place] [address] PCP - General Family Medicine 09/14/21 Clarita Boggs APRN.CARTRIDGE FILLER [address] [place] [address] Field Service Consultant Family Medicine 10/05/24 Virginia Reina CORPORATE DIRECTOR TALENT ASSESSMENT.CARTRIDGE FILLER [address] [place] [address] Field Service Consultant Family Medicine 10/05/24 Juan Miguel Yusuf MD [address] [place] [id number] Hematology/Oncology 01/25/25 Maria Isabel Silverio, MAGNUS [address] [place], [place] [id number] Specialty 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 Hematology/Oncology 01/25/25 Ayaz Nguyễn MD [address] [place] [id number] General Surgery 02/04/25 Addison Holley LISW [address] [place] [address] Metal Flooring Installer Hematology/Oncology 02/05/25 Lamar Stoner MD [address] [place], [place] [id number] Physician Radiation Oncology 04/08/25 Goals (unrecognized section [...] section and content) DATE CREATED AUTHOR 02/17/2025 [facility] DATE CREATED AUTHOR AUTHOR'S ORGANIZ ATION 04/08/2025 [facility] DATE CREATED AUTHOR AUTHOR'S ORGANIZ ATION 04/17/2025 [facility] DATE CREATED AUTHOR AUTHOR'S ORGANIZ ATION 05/27/2025 [facility] FOR RECORDS PERTAINING TO PATIENTS WHO [...] BE BASED ON THE PRIMARY CLINICAL RECORDS. [facility] [employer] [facility]. provides no warranty or guarantee of the accuracy or completeness of information in this document.
[2025-05-31] MEDS: KCL 40mEq in 0.9% NS 40 MEQ/1,000 ML IV.SOLN 125 MEQ IV ×2 (04:51→05:02)
[2025-05-31] MEDS: Pantoprazole Sodium 40 MG in 0.9% Normal Saline (100mL MB+) 100 ML 330 MG IV ×2 (05:04→20:19)
--- OUTSIDE RECORDS SUMMARY | 2025-05-31 05:11 | XMS RPT_ITS | CCD ---
Author Organization [facility] Care Team Providers Care Supervisor [employer] Name Role Phone Henok Martinez MD Primary Care Provider Michelle, Dr. Figueredo Primary Care Provider Michelle, Dr. Figueredo Referring Provider Dr. Zachary Sarabia Attending Provider [phone] Henok Martinez MD Primary Care Provider Michelle, Dr. Figueredo Primary Care Provider Michelle, Dr. Figueredo Referring Provider Dr. Jatinder Khan Attending Provider Henok Martinez MD Primary Care Provider Michelle, Dr. Figueredo Primary Care Provider Michelle, Dr. Figueredo Referring Provider Dr. Zachary Sarabia Attending Provider [phone] Haagen CREDIT ADMINISTRATION OFFICER.POLICE COMMANDING OFFICER, Clarita Unavailable Suppan CREDIT ADMINISTRATION OFFICER.POLICE COMMANDING OFFICER, Virginia A Unavailable [phone] Suppan CREDIT ADMINISTRATION OFFICER.POLICE COMMANDING OFFICER, Virginia A Unavailable Suppan CREDIT ADMINISTRATION OFFICER.POLICE COMMANDING OFFICER, Virginia A Unavailable Humberto RN, Iona Unavailable Dr. Henok Martinez MD Primary Care Provider Dr. Henok Martinez MD Attending Provider Dr. Henok Martinez MD Referring Provider Dr. Hung Remy DO Emergency Provider [phone] Dr. Oniel Golden DO Admit Provider Unavail able de David DO, Dr. Engle Attending Provider Unav ailable Jonel DO, Dr. Persaud Emergency Provider [phone] de David DO, Dr. Engle Admit Provider Unavail able de David DO, Dr. Engle Other Provider Unavail able Jazmin DO, Dr. Garcia Attending Provider [phone] Booekr DO, Dr. Hussein Other Provider Jazmin DO, Dr. Gacria Other Provider Stephanie DO, Dr. Rueda Attending Provider Arun AGUDELO, Stuart Trevino Unavailable Unavailable Juan Miguel Yusuf MD Unavailable Royer AGUDELO, Maria Isabel Unavailable Escobar Rayo Unavailable Unavailable Ayaz Nguyễn MD Unavailable Addison Padilla Unavailable Unavailabl lacy Cagle RN, Paulette Zara Unavailable Unavailable MICHELLE, HENOK J Primary Care [...] [place] Attending Unavailable FAZAL BREEN Consulting Unavailable Herbie HELMS, aLmar Unavailable Mohit Brown Attending Unavailable Oniel Golden Consulting Unavailable Oniel Golden Admitting Unavailable Oniel Golden Referring Unavailable Hoberg, Henok Primary Care Unavailable Keenan Celeste Consulting Unavailable Jose Wu Consulting Unavailable Jose Wu Attending Unavailable Hoberg, Henok Referring Unavailable Hoberg, Henok Attending Unavailable Michelle, Henok Primary Care Unavailable Michelle, Henok Primary Care Unavailable Guille Garnica Attending Unavailable Oniel Golden Admitting Unavailable de David, Oniel Consulting Unavailable Michelle, Henok Primary Care Unavailable Jose Wu Attending Unavailable Keenan Celeste Consulting Unavailable Hoberg, Henok Primary Care Unavailable Cornell, Zachary Attending Unavailable Babatunde Worthington Referring Unavailable Michelle, Henok Referring Unavailable Hoberg, Henok Primary Care Unavailable Cornell, Zachary Attending Unavailable Jatinder Khan Referring Unavailable Jatinder Khan Attending Unavailable Hoberg, Henok Primary Care Unavailable de Oniel Hernandez [...] MICHELLE, HENOK Becerril Primary Care Unavailable JUAN MIGULE YUSUF Attending Unavailable MICHELLE, HENOK Becerril Referring Unavailable MICHELLE, HENOK Becerril Primary Care Unavailable MICHELLE, HENOK Becerril Referring Unavailable MICHELLE, HENOK Becerril Primary Care Unavailable MICHELLE, HENOK Becerril Attending Unavailable MICHELLE, HENOK J Primary Care Unavailable JUAN MIGUEL YUSUF Referring Unavailable MICHELLE, HENOK J Primary Care Unavailable ABRJUAN MIGUEL SANTIAGO Referring Unavailable MICHELLE, HENOK Becerril Primary Care Unavailable MICHELLE, HENOK Becerril Primary Care Unavailable NANCY MEDLEY Referring Unavailable MICHELLE, HENOK Becerril Primary Care Unavailable VIRGINIA REINA Attending Unavailable MICHELLE, HENOK J Primary Care Unavailable NANCY MEDLEY Attending Unavailable MICHELLE, HENOK J Primary Care Unavailable JUAN MIGUEL YUSUF Referring Unavailable MICHELLE, HENOK Becerril Primary Care Unavailable MICHELLE, HENOK Becerril Attending Unavailable MICHELLE, HENOK Becerril Primary Care Unavailable MICHELLE, HENOK J Primary Care Unavailable JUAN MIGUEL YUSUF Referring Unavailable MICHELLE, HENOK Becerril Attending Unavailable MICHELLE, HENOK J Primary Care Unavailable ANGELIA HART Attending Unavailable HENOK MARTINEZ Primary Care Unavailable HENOK MARTINEZ Primary Care Unavailable HENOK MARTINEZ Referring Unavailable HENOK MARTINEZ Primary Care Unavailable JUAN MIGUEL YUSUF Referring Unavailable ASHUTOSH FREEMAN Referring Unavailable HENOK MARTINEZ Primary Care Unavailable JUAN MIGUEL YUSUF Attending Unavailable HENOK MARTINEZ Primary Care Unavailable JUAN MIGUEL YUSUF Referring Unavailable JUAN MIGUEL YUSUF Attending Unavailable Dr. Henok Martinez MD Primary Care Provider Dr. Yeyo Valentine DO Emergency Provider [phone] Oniel Golden DO Admit Provider Unavail able Dr. Oniel Golden DO Attending Provider Unav ailable Allergies Allergy Classification Reported Allergen(s) Allergy Type Date of Onset Reaction(s) Facility (10 sources) Penicillins; Translations: [PENICILLINS] Drug Allergy 1 Anaphylaxis [facility] (20 sources) Tetracycline; Translations: [TETRACYCLINE] Drug Allergy 1 Rash [facility] (20 sources) Penicillins Drug Allergy 1 Anaphylaxis [facility] (9 sources) Penicillins Allergy to substance 3 Anaphylaxis [facility] (20 sources) traMADol; Translations: [TRAMADOL] Drug Allergy 4 Intolerance [facility] (20 sources) Penicillins Drug Allergy 1 Anaphylaxis [facility] (1 source) Penicillins Drug allergy (disorder) 5 [facility] (1 source) Tetracycline Drug Allergy 5 [facility] (1 source) traMADol Drug Allergy 5 [facility] Medications Current Medications Medication Drug Class(es) Dates Sig (Normalized) Sig (Original) apixaban 5 mg oral tablet (20 sources) Factor Xa Inhibitor Start: 04-28-2024 End: 03-30-2026 take 1 tablet by mouth twice daily Apixaban 5 mg tablet Active 5 mg PO TWICE A DAY 180 3 April 28, 2024 3:26pm blood thinner Start: 05-04-2021 End: 05-01-2024 take 1 tablet by mouth twice daily Apixaban (Eliquis) 2.5 mg tablet Discontinued 2.5 mg PO TWICE A DAY 180 3 May 24th, 2024 1:18pm April 28, 2024 3:27pm Comment on above: Take 2.5 mg by mouth twice daily. Take 1 tablet by rina th twice daily. Take 1 tablet by rina th two times a day. atorvastatin 20 mg oral tablet (20 sources) HMG-CoA Reductase Inhibitor Start: End: take 1 tablet by mouth at bedtime Atorvastatin 20 mg tablet Active 20 mg PO AT BEDTIME March 07, 2023 12:00am hld Start: 04-20-2021 End: 10-01-2022 take 1 tablet [...] (15) days to upper arm. 6 Each 01/20/2025 Suspended Start: 01-20-2025 Blood-Glucose Sensor (FREESTYLE [...] 20 mg/ml oral solution (3 sources) Uncompetitive F-cnnhwm-U-aspartate Receptor Antagonist, Sigma-1 Agonist Start: 02-14-2025 End: 02-19-2025 take 10 mL by mouth every four hours as needed guaiFENesin-dextromethorphan (ROBITUSSIN DM) 100-10 mg/5 mL syrup Take 10 mL by mouth every 4 hours as needed for cough for up to 5 days. 200 mL 02/14/2025 02/19/2025 Active dextromethorphan hydrobromide 3 mg/ml / promethazine hydrochloride 1.25 mg/ml oral solution (20 sources) Phenothiazine, Uncompetitive J-zmwtcb-U-aspartate Receptor Antagonist, Sigma-1 Agonist Start: 02-24-2025 take [...] take 1 tablet by mouth once daily Losartan 100 mg tablet Active 100 mg PO DAILY March 07, 2023 12:00am bp Start: 10-01-2022 End: 10-01-2023 take 1 tablet [...] on above: Take 1 tablet by rina once daily. metFORMIN hydrochloride 500 mg oral [...] 3 01/25/2023 09/18/2023 Discontinued Start: 09-26-2021 End: 05-30-2025 take 1 tablet by mouth twice daily Metformin 500 mg tablet Discontinued 500 mg PO TWICE A DAY February 15, 2022 12:00am May 30, 2025 10:00pm Comment on above: Take 1 tablet by rina twice daily with meals. Take 1 tablet by rina three times daily before meals. Take 2 tablets by mo [facility] two times a day with meals. metoprolol tartrate 50 mg oral tablet (20 sources) beta-Adrenergic [place] Start: 11-21-2023 take 1 tablet by mouth twice daily Metoprolol Tartrate 50 mg tablet Active 50 mg PO TWICE A DAY November 21, 2023 10:23am heart Start: 04-15-2023 End: 12-22-2025 take 1.5 tablets [...] 25 mg PO TWICE A DAY 180 3 August 28, 2021 10:09am February 15, 2022 10:19am heart Comment on above: Take 1 tablet by [...] TABLET PO DAILY June 19, 2021 12:00am ondansetron 8 mg oral tablet (20 sources) Serotonin-3 Receptor Antagonist Start: 02-05-2025 End: 02-05-2025 8 mg, INTRAVENOUS, ONCE, 1 dose, On Sat02/05/25 at 1000 Start: 01-28-2025 End: 01-28-2025 8 [...] 8 HOURS NEEDED as needed for Nausea 30 February 25, 2024 12:00am April 28, 2024 [...] mg PO DAILY August 28, 2021 10:09am gerd Comment on above: Take 40 mg by mouth once daily. Take 1 tablet by rina once daily. phenylephrine hydrochloride 25 mg/ml ophthalmic [...] tablet Discontinued 10 mg PO DAILY 90 0 November 02, 2024 1:37pm November 10, 2024 12:50pm Start: 08-20-2021 End: 10-01-2022 take 1 tablet by mouth once daily Amlodipine 10 mg tablet Discontinued 10 mg PO DAILY 90 August 28, 2021 10:08am February 15, 2022 10:19am Comment on above: Take 10 mg by mouth once daily. aspirin 81 mg delayed release oral tablet (14 sources) Platelet Aggregation Inhibitor, Nonsteroidal Anti-inflammatory Drug Start: End: take 1 tablet by mouth once daily aspirin, enteric coated (ASPIRIN, ENTERIC COATED) 81 mg EC tablet Take 1 tablet by mouth once daily for 3 doses. 3 tablet 01/23/2025 02/01/2025 Discontinued baclofen 5 mg oral tablet (9 sources) gamma-Aminobutyric Acid-ergic Agonist Start: End: take 5-10 mg by mouth at bedtime as needed for pain Baclofen 5 mg tablet Discontinued 5 - 10 mg PO AT BEDTIME as needed for neck pain 60 1 February 15, 2022 12:00am March 07, 2023 [...] for pain. 02/25/2024 01/20/2025 Discontinued Start: 02-25-2024 End: 05-30-2025 Benzocaine-Menthol (Cepacol Sore Throat (Janneth-Men)) 15-2.6 mg lozenge Discontinued 1 NMA MUCOUS MEM Q2H as needed for sore throat 16 February 25, 2024 12:00am May 30, 2025 10:00pm Start: 02-25-2024 Benzocaine-Men thol (Cepacol Sore Throat (Janneth-Men)) 15-2.6 mg lozenge Active 1 LOZENGE MUCOUS MEM Q2H February 25, 2024 12:00am cloNIDine hydrochloride 0.1 mg oral tablet (9 sources) Central alpha-2 Adrenergic Agonist Start: 08-20-2021 End: 02-15-2022 Clonidine Hcl 0.1 mg tablet Discontinued 0.1 mg PO TWICE A DAY as needed for SBP > 180 10 August 20, 2021 3:19pm February 15, 2022 [...] 10 mg, INTRAVENOUS, ONCE, 1 dose, On Sat01/28/25 at 1130, Administer over 5 minutes. dronabinol [...] over 30 Minutes, ONCE, 1 dose, On Sat02/05/25 at 1100, exp 1200 02/06/25 (room temp) [...] Comment on above: Take 1 capsule by [facility] once daily. hypromellose 0.003 mg/mg ophthalmic gel [...] Enzyme Inhibitor Star t: 01-14 End: 11-16 take 1 tablet by mouth once daily lisinopril (ZESTRIL, PRINIVIL) 5 mg tablet Take 1 tablet by mouth once daily. 30 tablet 2 08/30/2022 09/17/2022 Discontinued Comment on above: Take 1 tablet by [facility] once daily. methylsulfonylmethane 1000 mg oral capsule (20 sources) take 1 capsule by mouth once daily Methylsulfonylmethane (MSM) 1,000 mg cap Take 1 capsule by mouth once daily. Suspended Comment on above: Take 1 capsule by mo [facility] once daily. Multivitamin tablet (3 sources) Star t: 05-29 End: 01-14 Multivitamin tablet Discontinued 1 {tbl} PO DAILY June 19, 2021 12:00am May 30, 2025 10:00pm Start: 06-19-2021 Multivitamin t ablet Active 1 {tbl} PO DAILY June 19, 2021 12:00am PACLitaxel 100 mg injection (2 sources) Microtubule Inhibitor Start: 02-05-2025 End: 02-05-2025 212.5 mg (125 mg/m2 1.7 m2 Treatment [...] Irritant with Vesicant Potential. polyethylene glycol 3350 281971 mg / potassium chloride 2970 mg / sodium bicarbonate 6740 mg / sodium chloride 5860 mg / sodium sulfate 92300 mg powder for oral solution (1 source) Osmotic Laxative Start: 09-05-2022 End: 09-05-2022 peg 3350-Electrolytes (GOLYTELY) 236-22.74-6.74 -5.86 gram suspension Indications: Change in bowel habits Take 4,000 mL by mouth one time only for 1 dose. Refer to printed prep instructions from your provider. 4000 mL 0 09/05/2022 09/05/2022 Comment on above: Take 4,000 mL by rina one time only for 1 dose. Refer to printed prep instructions from your provider. predniSONE 50 mg oral tablet (4 sources) Start: 02-25-2024 End: 07-09-2024 take 1 tablet by mouth once daily Prednisone 50 mg tablet Discontinued 50 mg PO DAILY 5 0 February 25, 2024 12:00am July 09, 2024 11:35am traMADol hydrochloride 50 mg oral tablet (3 sources) Opioid Agonist Start: 06-25-2024 End: 01-09-2025 take 1 tablet by mouth every six hours as needed for pain Tramadol 50 mg tablet Discontinued 50 mg PO EVERY 6 HOURS as needed for pain 12 3 0 June 25, 2024 12:00am January 09, 2025 [...] intermittent asthma, uncomplicated] Onset: 1 09-14-2021 Chronic Biliary tract disease (20 sources) Obstructive hyperbilirubinemia; Translations: [Obstruction of bile duct] Onset: 5 Resolved: 5 01-18-2025 Chronic Blindness and vision defects (3 sources) Presbyopia; Translations: [Presbyopia] Episodic Cancer of other GI organs; peritoneum (1 source) History of malignant 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; Translations: [Personal history of malignant 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] 05-31-2025 Episodic Cancer of pancreas (20 sources) Malignant tumor of head of pancreas; Translations: [Malignant neoplasm of head of pancreas] Onset: 5 01-21-2025 Chronic Cancer of uterus (20 sources) History of malignant neoplasm of uterine body; Translations: [Personal history of malignant neoplasm of other parts of uterus] Onset: 1 09-14-2021 Episodic Cardiac dysrhythmias (20 sources) Atrial fibrillation; Translations: [Unspecified atrial fibrillation] Onset: 3 03-07-2023 Chronic Cataract (5 sources) Bilateral pseudophakia; Translations: [Presence of intraocular lens] Chronic Chronic obstructive pulmonary disease and bronchiectasis (20 sources) Bronchiectasis; Translations: [Bronchiectasis, uncomplicated] Onset: Chronic Chronic obstructive pulmonary disease and bronchiectasis (2 sources) Bronchitis; Translations: [Bronchitis, not specified as acute or chronic] 03-04-2024 Episodic Deficiency and other anemia (1 source) Other pancytopenia; Translations: [Pancytopenia (HCC)] Onset: Chronic Deficiency and other anemia (1 source) Anemia; Translations: [Anemia, unspecified] 05-04-2024 Episodic Deficiency and other anemia (1 source) Anemia, unspecified; Translations: [Anemia, unspecified type] Onset: Episodic Diabetes mellitus with complications (20 sources) Hyperglycemia due to type 2 diabetes mellitus; Translations: [Type 2 diabetes mellitus with hyperglycemia] Onset: 5 01-18-2025 Chronic Diabetes mellitus without complication (20 sources) Type 2 diabetes mellitus without complication; Translations: [Type 2 diabetes mellitus without complications] Onset: 1 Resolved: Chronic Diseases of white blood cells (3 sources) Leukocytosis; Translations: [Elevated white blood cell count, unspecified] 03-05-2024 Chronic Disorders of lipid metabolism (20 sources) Hyperlipidemia; Translations: [Hyperlipidemia, unspecified] Onset: 3 06-19-2021 Chronic E Codes: Natural/environment (5 sources) Insect bite - wound; Translations: [Bitten or stung by nonvenomous insect and other nonvenomous arthropods, initial encounter] 08-07-2023 Episodic Esophageal disorders (20 sources) Gastroesophageal reflux disease without esophagitis; Translations: [Gastro-esophageal reflux disease without esophagitis] Onset: 1 09-14-2021 Chronic Essential hypertension (20 sources) Essential hypertension; Translations: [Essential (primary) hypertension] Onset: 1 Chronic Fever of unknown origin (1 source) Fever; Translations: [Fever, unspecified] 05-31-2025 Episodic Fluid and electrolyte disorders (7 sources) Hyperkalemia; Translations: [Hyperkalemia] Onset: 5 03-05-2024 Episodic Gastrointestinal hemorrhage (10 sources) Black feces symptom; Translations: [Melena] 08-08-2021 Episodic Malaise and fatigue (1 source) Weakness; Translations: [Weakness] Onset: 5 Episodic Mycoses (20 sources) Candidiasis of vagina; Translations: [Candidiasis of vagina] Onset: 3 Resolved: 3 08-20-2021 Episodic Nonspecific chest pain (20 sources) Chest pain; Translations: [Chest pain, unspecified] Onset: 3 Resolved: 4 03-07-2023 Episodic Other aftercare (20 sources) Long-term current use of anticoagulant; Translations: [detention (current) use of anticoagulants] Onset: 3 04-08-2023 Episodic Other and ill-defined heart disease (9 sources) Mass of thoracic structure; Translations: [Other ill-defined heart diseases] 02-28-2022 Chronic Other and ill-defined heart disease (5 sources) Other ill-defined heart diseases; Translations: [Other ill-defined heart diseases] 03-07-2023 Chronic Other circulatory disease (9 sources) History of transient ischemic attack; Translations: [Personal history of transient ischemic attack (TIA), 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 deficits] 02-15-2022 Episodic Other connective tissue disease (3 sources) Muscle pain; Translations: [Myalgia, unspecified site] [...] Other hereditary and degenerative nervous system conditions (9 sources) Impaired cognition; Translations: [Mild cognitive impairment, so stated] 06-19-2021 Chronic Other hereditary and degenerative nervous system conditions (2 sources) Mild cognitive impairment, so stated; Translations: [Mild cognitive impairment, so stated] Onset: 4 06-18-2023 Chronic Other liver diseases (7 sources) High lipase level in serum; Translations: [Abnormal levels of other serum enzymes] 11-12-2024 Episodic Other liver diseases (20 sources) Jaundice; Translations: [Unspecified jaundice] Onset: 5 Resolved: 5 01-15-2025 Episodic Other liver diseases (6 sources) Enzyme level - finding; Translations: [Elevated [...] Chronic Other nutritional; endocrine; and metabolic disorders (6 sources) Hyperbilirubinemia; Translations: [Other disorders of bilirubin metabolism] 01-10-2025 Chronic Other nutritional; endocrine; and metabolic disorders (1 source) Other disorders of bilirubin metabolism; Translations: [Other disorders of bilirubin metabolism] Onset: Chronic Other nutritional; endocrine; and metabolic disorders (1 source) Weight loss; Translations: [Abnormal weight loss] 03-04-2024 Episodic Other nutritional; endocrine; and metabolic disorders (5 sources) Body mass index 25-29 - overweight; [...] symptom; Translations: [Acute pharyngitis, unspecified] 02-19-2024 Episodic Pancreatic disorders (not diabetes) (20 sources) Mass of pancreas; Translations: [Other specified diseases of pancreas] Onset: Resolved: 5 01-15-2025 Episodic Residual codes; unclassified (1 source) Acquired absence of both cervix and uterus; Translations: [Acquired absence of both cervix and uterus] Onset: Episodic Residual codes; unclassified (1 source) Past history of procedure; Translations: [Other specified postprocedural states] 05-31-2025 Episodic Residual codes; unclassified (2 sources) Not for resuscitation; Translations: [Do not resuscitate] 05-31-2025 Episodic Spondylosis; intervertebral disc disorders; other back problems (20 sources) Neck pain; Translations: [Cervicalgia] Onset: 3 Resolved: 3 02-15-2022 Episodic Sprains and strains (3 sources) Strain of neck muscle; Translations: [Strain of muscle, fascia and tendon at neck level, initial encounter] 07-03-2024 Episodic Transient cerebral ischemia (10 sources) Transient cerebral ischemia; Translations: [Transient cerebral [...] [Pelvic and perineal pain] Onset: 11-12-2024 Episodic Diabetes mellitus without complication (20 sources) Hyperglycemia; Translations: [Hyperglycemia, unspecified] Onset: 01-18-2025 Resolved: 03-30-2025 01-18-2025 Episodic Other aftercare (2 sources) superintendent container terminal (current) use of insulin; Translations: [Type 2 diabetes mellitus with hyperglycemia, with long-term current use of insulin (HCC)] Onset: 01-18-2025 Episodic Other aftercare (1 source) detention (current) use of anticoagulants; Translations: [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] Onset: 05-20-2023 [...] phase] Onset: 11-09-2024 Episodic Other liver diseases (4 sources) Unspecified [...] functions and awareness] Onset: 05-20-2023 05-20-2023 Episodic Pneumonia (except that caused by tuberculosis or sexually transmitted disease) (20 sources) Pneumonia; Translations: [Pneumonia, unspecified organism] Onset: 02-11-2025 Resolved: 03-30-2025 02-11-2025 Episodic Viral infection (20 sources) Respiratory syncytial virus infection; Translations: [Other specified viral diseases] Onset: 02-12-2025 Resolved: 03-30-2025 02-12-2025 Episodic Results Test Name Value Interpretation Reference Range Facility Absolute lymphocyte countOrd ered By: Yeyo Valentine on 05-30-2025 Lymphocytes Auto (Unsp spec) [#/Vol] 0.46 10*3/uL Low 0.83-4.51 [facility] Absolute neutrophil countOrd ered By: Yeyo Valentine on 05-30-2025 Neutrophils (Bld) [#/Vol] 11.7 10*3/uL High 2.0-7.7 [facility] Anion gap in Serum or Plasma Ordered By: Yeyo Valentine on 05-30-2025 Anion gap [Moles/Vol] 14 mmol/L 5-[address] [facility] Automated lymphocyte count a s percentage of total leukocytesOrdered By: Yeyo Valentine on 05-30-2025 Lymphocytes/100 WBC Auto (Unsp spec) 3.3 % Low 19-41 [facility] BUN/creatinine ratioOrdered By: Yeyo Valentine on 05-30-2025 Urea nitrogen/Creatinine [Mass ratio] 12.0 mg/mg 10-20 [facility] Basophil percentageOrdered B y: Yeyo Valentine on 05-30-2025 Basophils/100 WBC (Bld) 0.1 % 0-1 [facility] Bilirubin Test strip Ql (U)O rdered By: Yeyo Valentine on 05-30-2025 Bilirubin Ql (U) Negative Negative [facility] Bilirubin, totalOrdered By: Yeyo Valentine on 05-30-2025 Bilirubin [Mass/Vol] 4.82 mg/dL High 0.00-1.30 [facility] Blood manual differential co mment interpretation (narrative result)Ordered By: Yeyo Valentine on 05-30-2025 Manual differential comment Jimenez (Bld) [Interp] SCANNED [facility] Carbon dioxide, total [Moles /volume] in Central venous bloodOrdered By: Yeyo Valentine on 05-30-2025 CO2 [Moles/Vol] 20.0 mmol/L Low 21.0-32.0 [facility] Chloride assayOrdered By: Ayan Valentine on 05-30-2025 Chloride [Moles/Vol] 97 mmol/L Low 98-108 [facility] Eosinophil percentageOrdered By: Yeyo Valentine on 05-30-2025 Eosinophils/100 WBC (Bld) 0.0 % 0-5 [facility] Erythrocyte distribution wid th ratioOrdered By: Yeyo Valentine on 05-30-2025 Erythrocyte distribution width (RBC) [Ratio] 14.9 % High 11.6-14.6 [facility] Erythrocyte distribution wid th standard deviationOrdered By: Yeyo Valentine on 05-30-2025 Erythrocyte distribution width (RBC) [Ratio] 44.9 fl High 35.1-43.9 [facility] Glomerular filtration rate ( GFR) estimation/1.73 sq m using serum, plasma, or whole bOrdered By: Yeyo Valentine on 05-30-2025 GFR/1.73 sq M.predicted among non-blacks MDRD (S/P/Bld) [Vol rate/Area] 80 mL/min/{1.73_m2} >60 [facility] Comment on above: mL/min/1.73m2 CKD-EP I Creatinine Equation (2020) Hematocrit Auto (Bld) [Volum e fraction]Ordered By: Yeyo Valentine on 05-30-2025 Hematocrit (Bld) [Volume fraction] 33.8 % Low 37-47 [facility] Hemoglobin measurementOrdere d By: Yeyo Valentine on 05-30-2025 Hemoglobin (Bld) [Mass/Vol] 11.1 g/dL Low 12.0-15.0 [facility] [facility] Immature granulocytes/100 WB C Auto (Bld)Ordered By: Yeyo Valentine on 05-30-2025 Immature granulocytes/100 WBC (Bld) 0.500 % 0.0-0.9 [facility] Comment on above: IG% - Immature Granu locytes (promyelocytes, myelocytes and metamyelocytes) > 1% indicates that a LEFT SHIFT is Present. Influenza virus A and B and SARS-CoV-2 (COVID-19) and Respiratory syncytial virus RNAOrdered By: Yeyo Valentine on 05-30-2025 SARS-CoV-2 (COVID-19) RNA GUNNER+probe Ql (Unsp spec) [facility] Ketones Test strip Ql (U)Ord ered By: Yeyo Valentine on 05-30-2025 Ketones Ql (U) Negative Negative [facility] Laboratory - Chemistry and C hemistry - challengeOrdered By: Yeyo Valentine on 05-30-2025 AST [Catalytic activity/Vol] 135 U/L High <32 [facility] Lactic acid measurementOrder ed By: Yeyo Valentine on 05-30-2025 Lactate [Moles/Vol] 1.6 mmol/L 0.0-2.0 [facility] Lipase measurementOrdered By : Yeyo Valentine on 05-30-2025 Lipase [Catalytic activity/Vol] 49 U/L 13-75 [facility] Comment on above: Please note:LIPASE r evised reference range effective 23. New Lipase methodology. Expected to produce lower values than the previous assay method. NEW Reference Range: 13 - 75 U/L MCV (mean corpuscular volume ) determinationOrdered By: Yeyo Valentine on 05-30-2025 MCV (RBC) [Entitic vol] 81.8 fL 81-99 [facility] Mean corpuscular hemoglobin (MCH) determinationOrdered By: Yeyo Valentine on 05-30-2025 MCH (RBC) [Entitic mass] 26.9 pg Low 27.0-32.0 [facility] Mean corpuscular hemoglobin concentration (MCHC) determinationOrdered By: Yeyo Valentine on 05-30-2025 MCHC (RBC) [Mass/Vol] 32.8 g/dL 32-[address] [facility] Mean platelet volume determi nationOrdered By: Yeyo Valentine on 05-30-2025 Platelet mean volume (Bld) [Entitic vol] 12.7 fL High 6.2-12.0 [facility] Microscopic analysis of urin e for red blood cells (RBC)Ordered By: Yeyo Valentine on 05-30-2025 Microscopic analysis of urine for red blood cells (RBC) 0 SEEN /hpf 0-5 [facility] Monocyte percentageOrdered B y: Yeyo Valentine on 05-30-2025 Monocytes/100 WBC (Bld) 11.4 % High 0-10 [facility] Mucus LM Ql (Urine sed)Order ed By: Yeyo Valentine on 05-30-2025 Mucus Ql (Urine sed) 0 SEEN /hpf [facility] Neutrophil percentageOrdered By: Yeyo Valentine on 05-30-2025 Neutrophils/100 WBC (Bld) 84.7 % High 47-70 [facility] Nitrite Test strip Ql (U)Ord ered By: Yeyo Valentine on 05-30-2025 Nitrite Ql (U) Negative Negative [facility] Nucleated red blood cell per centageOrdered By: Yeyo Valentine on 05-30-2025 Nucleated RBC/100 WBC (Bld) [Ratio] 0 % 0-5 [facility] Platelet countOrdered By: Ayan Valentine on 05-30-2025 Platelets (Bld) [#/Vol] 185 10*3/uL 150-450 [facility] Potassium measurement (mass/ volume)Ordered By: Yeyo Valentine on 05-30-2025 Potassium (Unsp spec) [Mass/Vol] 3.1 mmol/L Low 3.3-5.1 [facility] Protein Test strip Ql (U)Ord ered By: Yeyo Valentine on 05-30-2025 Protein Ql (U) 30 mg/dl High Negative [facility] RBC Auto (Bld) [#/Vol]Ordere d By: Yeyo Valentine on 05-30-2025 RBC (Bld) [#/Vol] 4.13 10*6/uL Low 4.2-5.4 [facility] Serum creatinine measurement (mass/volume)Ordered By: Yeyo Valentine on 05-30-2025 Creatinine [Mass/Vol] 0.74 mg/dL 0.70-1.[address] [facility] Serum globulin measurementOr dered By: Yeyo Valentine on 05-30-2025 Globulin (S) [Mass/Vol] 3.5 g/dL 2.2-4.2 [facility] Serum glucose measurement (m ass/volume)Ordered By: Yeyo Valentine on 05-30-2025 Glucose [Mass/Vol] 257 mg/dL High 70-99 [facility] Serum or plasma alanine mendoza otransferase (ALT) measurementOrdered By: Yeyo Valentine on 05-30-2025 ALT [Catalytic activity/Vol] 195 U/L High <35 [facility] Serum or plasma albumin froylan urement (mass/volume)Ordered By: Yeyo Valentine on 05-30-2025 Albumin [Mass/Vol] 3.9 g/dL 3.4-4.8 [facility] Serum or plasma albumin/glob ulin mass ratioOrdered By: Yeyo Valentine on 05-30-2025 Albumin/Globulin [Mass ratio] 1.1 {ratio} 0.9-2.4 [facility] Serum or plasma alkaline charli sphatase measurementOrdered By: Yeyo Valentine on 05-30-2025 ALP [Catalytic activity/Vol] 466 U/L High 35-104 [facility] Serum or plasma calcium froylan urement (mass/volume)Ordered By: Yeyo Valentine on 05-30-2025 Calcium [Mass/Vol] 9.1 mg/dL 7.6-11.0 [facility] Serum or plasma urea nitroge n measurement (mass/volume)Ordered By: Yeyo Valentine on 05-30-2025 Urea nitrogen [Mass/Vol] 9 mg/dL 4-19 [facility] Sodium levelOrdered By: Yeyo Valentine on 05-30-2025 Sodium [Moles/Vol] 131 mmol/L Low 133-145 [facility] Squamous epithelial cells de tection in urine sediment by light microscopyOrdered By: Yeyo Valentine on 05-30-2025 Epithelial cells.squamous LM Ql (Urine sed) 5-10 SEEN /hpf 5-10 [facility] Total proteinOrdered By: Gerard Valentine on 05-30-2025 Protein [Mass/Vol] 7.3 g/dL 5.9-8.4 [facility] Urine clarityOrdered By: Gerard Valentine on 05-30-2025 Clarity (U) Clear Clear [facility] Urine color determinationOrd ered By: Yeyo Valentine on 05-30-2025 Color (U) Yellow Yellow [facility] Urine glucose detectionOrder ed By: Yeyo Valentine on 05-30-2025 Glucose Ql (U) 1000 mg/dl High Normal [facility] Urine leukocyte esterase det ection by dipstickOrdered By: Yeyo Valentine on 05-30-2025 Leukocyte esterase Test strip Ql (U) Negative Negative [facility] Urine pHOrdered By: Yeyo Valentine on 05-30-2025 pH (U) 7.0 [pH] 5.0 - 8.0 [facility] Urine sediment bacteria coun t by microscopy (number/high power field)Ordered By: Yeyo Valentine on 05-30-2025 Bacteria LM.HPF (Urine sed) [#/Area] 2 /[HPF] None Seen [facility] Urine specific gravity measu rementOrdered By: Yeyo Valentine on 05-30-2025 Specific gravity (U) [Rel density] 1.005 1.002-1.030 [facility] Urine urobilinogen measureme ntOrdered By: Yeyo Valentine on 05-30-2025 Urobilinogen Ql (U) Normal mg/dl Normal [facility] White blood cell (WBC) count Ordered By: Yeyo Valentine on 05-30-2025 WBC (Bld) [#/Vol] 13.9 10*3/uL High 4.4-11.0 [facility] White blood cell countOrdere d By: Yeyo Valentine on 05-30-2025 White blood cell count 0 SEEN /hpf 0-5 [facility] CNOVSPon 05-25-2025 CNOVSP Visit (SP) Office (H EMAWS) -- TELMA TINEO ([id number]) 1940 F Date Time Provider Department 05/25/25 [...] presented with painless jaundice, admitted initially at [facility], transferred for further work up at [facility]. Saw hepatobiliary surgery there, noted pancreatic mass. [...] 2 times (more content not included)... Normal [facility] 05-25-2025 CNPN Telephone (JESSICANOR) -- TELMA TINEO ([id number]) 1940 F Date Time Provider Department 05/25/25 [...] but she cancelled because she was in [place]. LM to call me back. Fatoumata Glynn [...] once daily. - Blood Pressure Test Kit-Large ([employer] ARM BP MONITOR) 1 Each once daily. [...] 05/20/2023 05/20/2023 (more content not included)... Normal [facility] Cancer Ag19-9 SerPl-aCncon 0 05-25-2025 Cancer Ag 19-9 Qn 121.0 [arb'U]/mL High <36.0 [facility] Comment on above: Order Comment: Dayron stinson Type: BLOOD SPECIMEN Ordering Facility: [facility] Address: [address] [place] [address] Result Comment: [facility] er antigen 19-9 test is used as an aid in monitoring response to treatment or recurrence in patients with established pancreatic, hepatobiliary, or gastrointestinal malignancies. Clinical correlation is required. The CA 19-9 Antigen test was performed using the Carmen [employer]atch [employer] DXI paramagnetic particle chemiluminescent immunoassay method. Results obtained with different assay methods or kits cannot be used interchangeably. Performed By: #### 5 7021-8 #### [facility] CLIA [id number] [address] [place] [address] [place] Creatinine and Glomerular fi ltration rate.predicted panel (S/P/Bld)Ordered By: Angelia Paez on 05-25-2025 Creatinine [Mass/Vol] 0.59 mg/dL 0.58 - 0.96 mg/dL [facility] GFR/1.73 sq M.predicted among non-blacks MDRD (S/P/Bld) [Vol rate/Area] 89 mL/min/{1.73_m2} - [facility] Comment on above: Estimated Glomerular Filtration Rate [...] Interpretation and review of laboratory results Normal [facility] Creatinine and Glomerular fi ltration rate.predicted panel (S/P/Bld)on 05-25-2025 Creatinine [Mass/Vol] 0.59 mg/dL Normal 0.58-0.96 [facility] Comment on above: Order Comment: Dayron stinson Type: BLOOD SPECIMEN Ordering Facility: [facility] Address: [address] [place] [address] Performed By: #### 5 7021-8 #### [facility] CLIA [id number] [address] [place] [address] eGFRcr SerPlBld CKD-EPI 2020 89 mL/min/1.73m??? Normal >=60 [facility] Comment on above: Order Comment: Dayron stinson Type: BLOOD SPECIMEN Ordering Facility: [facility] Address: [address] [place] [address] Result Comment: Kya mated Glomerular Filtration Rate [...] GFR. Performed By: #### 5 7021-8 #### [id number] [address] [place] [address] REFERRAL FOR ADDITIONAL BIOM ARKER AND MOLECULAR TESTINGOrdered By: Darien Stakrs on 05-25-2025 [facility] Comment on above: Request has been rec eived for evaluation and the results will be issued separately. [facility] REFERRAL FOR ADDITIONAL BIOM ARKER AND MOLECULAR TESTINGon 05-25-2025 REFERRAL FOR ADDITIONAL BIOMARKER AND MOLECULAR TESTING Normal [facility] Comment on above: Order Comment: Dayron stinson Type: BLOOD SPECIMEN Ordering Facility: [facility] Address: [address] [place] [address] Result Comment: Requ est has been received for evaluation and the results will be issued separately. Performed By: #### 5 7021-8 #### [facility] [id number] [address] [place] [address] CNPClarissa 05-13-2025 IMMANUEL Telephone (LUKE) -- TELMA TINEO ([id number]) 1940 F Date Time Provider Department 05/13/25 MARIA ISABEL SILVERIO During your visit today, we recorded the following information about you: Maria Isabel Silverio, MAGNUS 05/13/2025 2:37 PM Addendum Call Sujata or [...] reschedule with Dr. Diaz in GI at [place]? Please call Sujata or Timothy to schedule. [...] once daily. - Blood Pressure Test Kit-Large ([employer] ARM BP MONITOR) 1 Each once daily. 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 Patient will be out of the country 04[place]11[place]04[place]17. Patient is also scheduled for another ERCP 04/20. She saw Dr Nguyễn on 04/06 and is not a surgical candidate. I just wanted to make sure that you were aware. Maria Isabel Silverio RN 04/08/2025 11:33 AM Signed Thank you, patient has cancelled all of her chemotherapy treatments. MAGNUS Amos [facility], Trevor 04/13/2025 8:59 AM Signed Noticed Rad/Onc referral dropped back onto report. On 04/12 all appointments were canceled stating patient in [place] until further notice. Allergies As of Date: [...] 0.5 mL 31 gauge x /16 1 each two times a day. - [...] - Blood-Glucose Meter,Continuous (FREESTYLE TOLU 3 READER) [facility] Use to check blood sugar at least [...] once daily. - Blood Pressure Test Kit-Large ([employer] ARM BP MONITOR) 1 Each once daily. 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 This lady [...] 04/11-. Are you on any blood thinners? Eliqucolleen, aware to stop 3 days prior Are [...] - Blood-Glucose Meter,Continuous (FREESTYLE TOLU 3 READER) [facility] Use to check blood sugar at least [...] once daily. - Blood Pressure Test Kit-Large ([employer] ARM BP MONITOR) 1 Each once daily. [...] 05/20/2023 Impaired cognition [R41.89] 05/20/2023 Diagnosed: 05/20/2023 detention current use of anticoagulant therapy *05/20/2023 Diagnosed: 05/20/2023 Neck pain [M54.2] 05/20/2023 05/20/2023 Diagnosed: 05/20/2023 Cerebrovascular accident (CVA) (HCC) [I63.9] 05/20/2023 Diagnosed: 05/20/2023 Jaundice [R17] 01/15/2025 03/30/2025 Pancreati (more content not included)... Normal [facility] CNOVon 03-30-2025 CNOV Office Visit (FAMPWS ) -- TELMA TINEO ([id number]) 1940 F Date Time Provider Department 03/30/25 2:00 PM [facility] During your visit today, we recorded the [...] sugar. Blood-Glucose Meter,Continuous (FREESTYLE TOLU 3 READER) [facility] Use to check blood sugar at least [...] mouth once daily. Blood Pressure Test Kit-Large ([employer] ARM BP MONITOR) 1 Each once daily. [...] Used Sub (more content not included)... Normal [facility] XR CHEST 2V FRONTAL/LATon XR CHEST 2V [...] tissues: Unremarkable. IMPRESSION: No acute radiographic abnormality. Seam Steamer: AMBER Transcribe Date/Time: Mar 19 2025 12:53P Dictated by : FAIZAN CLAROS MD This examination was interpreted and the report reviewed and electronically signed by: FAIZAN CLAROS MD on Mar 19 2025 12:54PM EST [id number] [facility]ORN [facility] (LUKE) -- TELMA TINEO ([id number]) 1940 F Date Time Provider Department 03/15/25 JUAN MIGUEL YUSUF During your visit today, we recorded the following information about you: Jeanna Glynn, MAGNUS 03/15/2025 9:20 AM Signed Spoke with Telma's son, Timothy, over the phone. He forgot about Telma's appointment and states she is not coming in for her office visit with [facility] NÉSTOR today or for labs. She is now considering not pursuing chemotherapy treatment. She returned from out of state last night and she is leaving for [place] 03/18 to say goodbyes to her family. Son thinks she may end up staying in [place] but is not sure. Maria Isabel Silverio, [...] return call by then. MAGNUS Amos Cathleen, RN 03/15/2025 12:57 PM Signed PSS: please cancel all upcoming appointments with our office. MAGNUS AmosMame 03/15/2025 1:01 PM Signed All appointments here [...] - Blood-Glucose Meter,Continuous (FREESTYLE TOLU 3 READER) [facility] Use to check blood sugar at least [...] once daily. - Blood Pressure Test Kit-Large ([employer] ARM BP MONITOR) 1 Each once daily. 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 Normal [facility] CNPNon 03-02-2025 CNPN Telephone (LUKE) -- TELMA TINEO ([id number]) 1940 F Date Time Provider Department 03/02/25 JUAN MIGUEL YUSUF During your visit today, we recorded the following information about you: Trevor Reynoso 03/02/2025 3:31 PM Signed Timothy called asking if okay for patient to travel to [place] within the next few days by car. Please call him and advise. Maria Isabel Silverio RN 03/03/2025 9:30 AM Signed Maria Isabel Silverio RN 03/03/2025 9:30 AM Signed Call to Timothy, aware ok for travel to [place]. He states she is planning to be out of town for a week. 03/05 to 03/12. Appointments will need to be rescheduled. MAGNUS Amos Cathleen, RN 03/03/2025 9:30 AM Signed PSS: please move out appointments 03/09 and 03/10 out a week and adjust schedule. please call Timothy with new date/times. MAGNUS Amos Brandy 03/03/2025 10:43 AM Signed I called and [...] placement if the x-ray looks clear Mame Belles Pss Allergies As of Date: 03/02/2025 Noted Allergy Reaction PENICILLINS 09/14/2021 10 - Anaphylaxis TETRACYCLINE 09/14/2021 2 - Rash TRAMADOL 07/01/2024 5 - Intolerance Comments: Trembling Date Reviewed: 02/24/2025 Reviewed by: Shabnam Ruiz LPN - Fully Assessed Reason for Visit: Patient Question [1477] Prescriptions as of 03/15/2025 - sucralfate (CARAFATE) [...] - Blood-Glucose Meter,Continuous (FREESTYLE TOLU 3 READER) [facility] Use to check blood sugar at least [...] once daily. - Blood Pressure Test Kit-Large ([employer] ARM BP MONITOR) 1 Each once daily. 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 Normal [facility] CNOVon 02-24-2025 CNOV Office Visit (FAMPWS ) -- TELMA TINEO ([id number]) 1940 F Date Time Provider Department 02/24/25 11:00 AM HENOK MARTINEZ During your visit today, we recorded the following information about you: Pulse Blood pressure Weight 77/minute 118/72 67.1 kg Henok Martinez MD 02/24/2025 11:45 AM Signed No chief complaint on file. HPI: Patient presents today for office visit for hospital follow up. HOSPITAL/ER FOLLOW UP: Reason for visit: pneumonia Which facility: [facility] Date of visit: 02/11/25-02/14/25 Diagnosis: acute pneumonia, [...] sugar. Blood-Glucose Meter,Continuous (FREESTYLE TOLU 3 READER) [facility] Use to check blood sugar at least [...] mouth once daily. Blood Pressure Test Kit-Large ([employer] ARM BP MONITOR) 1 Each once daily. [...] HX w (more content not included)... Normal [facility] TELMA TINEO ([id number]) 1940 F Date Time Provider Department 02/23/25 HENOK MARTINEZ [facility] During your visit today, we recorded the following information about you: Jose Ortiz LPN 02/23/2025 10:13 AM Signed Pt was scheduled for 20min 4c Est continued cough follow up. On 02/24/25. Pt was actually admitted to [facility] 02/10/25 and dc'd on 02/14/25 with a diagnosis of pneumonia and RSV. Pt needs rescheduled for a 4c Est Hosp/ER follow up. PETE Degroot Stephanie 02/23/2025 3:00 PM Signed Spoke with patient's son and rescheduled with Dr. Becker as patient will only see MD's/DO's and not SAFETY AND SECURITY OFFICER's. Nat Solis Allergies As of Date: [...] - Blood-Glucose Meter,Continuous (FREESTYLE TOLU 3 READER) [facility] Use to check blood sugar at least [...] once daily. - Blood Pressure Test Kit-Large ([employer] ARM BP MONITOR) 1 Each once daily. 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 - Blood Pressure Test Kit-Large ([employer] ARM BP MONITOR) 1 Each once daily. [...] 05/20/2023 Impaired cognition [R41.89] 05/20/2023 Diagnosed: 05/20/2023 detention current use of anticoagulant therapy *05/20/2023 Diagnosed: [...] Status:Closed by SHABNAM RUIZ on 02/24/25 Normal [facility] CBC W Auto Differential pane l (Bld)on 02-22-2025 Basophils (Bld) [#/Vol] 0.12 10*3/uL High [facility] Basophils/100 WBC (Bld) 1.2 % [facility] Differential cell count method Nom (Bld) Auto [facility] Eosinophils (Bld) [#/Vol] 0.1 10*3/uL [facility] Eosinophils/100 WBC (Bld) 1 % [facility] Erythrocyte distribution width (RBC) [Ratio] 15.2 % High 11.5 - 15.0 % [facility] Hematocrit (Bld) [Volume fraction] 31.5 % Low 36.0 - 46.0 % [facility] Hemoglobin (Bld) [Mass/Vol] 10.3 g/dL Low 11.5 - 15.5 g/dL [facility] Immature granulocytes (Bld) [#/Vol] 0.19 10*3/uL High [facility] Immature granulocytes/100 WBC (Bld) 1.9 % [facility] Interpretation and review of laboratory results Abnormal [facility] Lymphocytes (Bld) [#/Vol] 1.57 10*3/uL [facility] Lymphocytes/100 WBC (Bld) 16 % [facility] MCH (RBC) [Entitic mass] 29.6 pg 26.0 - 34.0 pg [facility] MCHC (RBC) [Mass/Vol] 32.7 g/dL 30.5 - 36.0 g/dL [facility] MCV (RBC) [Entitic vol] 90.5 fL 80.0 - 100.0 fL [facility] Monocytes (Bld) [#/Vol] 1.28 10*3/uL High NINF [facility] Monocytes/100 WBC (Bld) 13 % [facility] Neutrophils (Bld) [#/Vol] 6.58 10*3/uL [facility] Neutrophils/100 WBC (Bld) 66.9 % [facility] Nucleated RBC (Bld) [#/Vol] NINF [facility] Nucleated RBC/100 WBC (Bld) [Ratio] 0 % /100 WBC [facility] Platelet mean volume (Bld) [Entitic vol] 10.2 fL 9.0 - 12.7 fL [facility] Platelets (Bld) [#/Vol] 677 10*3/uL High [facility] RBC (Bld) [#/Vol] 3.48 10*6/uL Low 3.90 - 5.2 0 m/uL [facility] WBC (Bld) [#/Vol] 9.84 10*3/uL [facility] Basophils (Bld) [#/Vol] 0.12 10*3/uL High <0.11 [facility] Comment on above: Order Comment: Speci men Type: BLOOD SPECIMEN Ordering Facility: [facility] Address: [address] [place] [address] Performed By: #### 5 7021-8 #### [facility] CLIA [id number] [address] [place] [address] [place] KAYLA Basophils/100 WBC (Bld) 1.2 % Normal [facility] Comment on above: Order Comment: Speci men Type: BLOOD SPECIMEN Ordering Facility: [facility] Address: [address] [place] [address] Performed By: #### 5 7021-8 #### [facility] CLIA [id number] [address] [place] [address] [place] Differential cell count method Nom (Bld) Auto Normal [facility] Comment on above: Order Comment: Speci men Type: BLOOD SPECIMEN Ordering Facility: [facility] Address: [address] [place] [address] Performed By: #### 5 7021-8 #### [facility] CLIA [id number] [address] [place] [address] [place] Eosinophils (Bld) [#/Vol] 0.10 10*3/uL Normal <0.46 [facility] Comment on above: Order Comment: Speci men Type: BLOOD SPECIMEN Ordering Facility: [facility] Address: [address] [place] [address] Performed By: #### 5 7021-8 #### [facility] CLIA [id number] [address] [place] [address] [place] Eosinophils/100 WBC (Bld) 1.0 % Normal [facility] Comment on above: Order Comment: Speci men Type: BLOOD SPECIMEN Ordering Facility: [facility] Address: [address] [place] [address] Performed By: #### 5 7021-8 #### [facility] CLIA [id number] [address] [place] [address] [place] Erythrocyte distribution width (RBC) [Ratio] 15.2 % High 11.5-15.0 [facility] Comment on above: Order Comment: Speci men Type: BLOOD SPECIMEN Ordering Facility: [facility] Address: [address] [place] [address] Performed By: #### 5 7021-8 #### [facility] CLIA [id number] [address] [place] [address] [place] Hematocrit (Bld) [Volume fraction] 31.5 % Low 36.0-46.0 [facility] Comment on above: Order Comment: Speci men Type: BLOOD SPECIMEN Ordering Facility: [facility] Address: [address] [place] [address] Performed By: #### 5 7021-8 #### [facility] CLIA [id number] [address] [place] [address] [place] Hemoglobin (Bld) [Mass/Vol] 10.3 g/dL Low 11.5-15.5 [facility] Comment on above: Order Comment: Speci men Type: BLOOD SPECIMEN Ordering Facility: [facility] Address: [address] [place] [address] Performed By: #### 5 7021-8 #### [facility] CLIA [id number] [address] [place] [address] [place] Immature granulocytes (Bld) [#/Vol] 0.19 10*3/uL High <0.10 [facility] Comment on above: Order Comment: Speci men Type: BLOOD SPECIMEN Ordering Facility: [facility] Address: [address] [place] [address] Performed By: #### 5 7021-8 #### [facility] CLIA [id number] [address] [place] [address] [place] Immature granulocytes/100 WBC (Bld) 1.9 % Normal [facility] Comment on above: Order Comment: Speci men Type: BLOOD SPECIMEN Ordering Facility: [facility] Address: [address] [place] [address] Performed By: #### 5 7021-8 #### [facility] CLIA [id number] [address] [place] [address] [place] Lymphocytes (Bld) [#/Vol] 1.57 10*3/uL Normal 1.00-4.00 [facility] Comment on above: Order Comment: Speci men Type: BLOOD SPECIMEN Ordering Facility: [facility] Address: [address] [place] [address] Performed By: #### 5 7021-8 #### [facility] CLIA [id number] [address] [place] [address] [place] Lymphocytes/100 WBC (Bld) 16.0 % Normal [facility] Comment on above: Order Comment: Speci men Type: BLOOD SPECIMEN Ordering Facility: [facility] Address: [address] [place] [address] Performed By: #### 5 7021-8 #### [facility] CLIA [id number] [address] [place] [address] [place] MCH (RBC) [Entitic mass] 29.6 pg Normal 26.0-34.0 [facility] Comment on above: Order Comment: Speci men Type: BLOOD SPECIMEN Ordering Facility: [facility] Address: [address] [place] [address] Performed By: #### 5 7021-8 #### [id number] [address] [place] [address] [place] MCHC (RBC) [Mass/Vol] 32.7 g/dL Normal 30.5-36.0 [facility] Comment on above: Order Comment: Speci men Type: BLOOD SPECIMEN Ordering Facility: [facility] Address: [address] [place] [address] Performed By: #### 5 7021-8 #### [facility] [id number] [address] [place] [address] [place] MCV (RBC) [Entitic vol] 90.5 fL Normal 80.0-100.0 [facility] Comment on above: Order Comment: Speci men Type: BLOOD SPECIMEN Ordering Facility: [facility] Address: [address] [place] [address] Performed By: #### 5 7021-8 #### [facility] [id number] [address] [place] [address] [place] Monocytes (Bld) [#/Vol] 1.28 10*3/uL High <0.87 [facility] Comment on above: Order Comment: Speci men Type: BLOOD SPECIMEN Ordering Facility: [facility] Address: [address] [place] [address] Performed By: #### 5 7021-8 #### [facility] CLIA [id number] [address] [place] [address] [place] Monocytes/100 WBC (Bld) 13.0 % Normal [facility] Comment on above: Order Comment: Speci men Type: BLOOD SPECIMEN Ordering Facility: [facility] Address: [address] [place] [address] Performed By: #### 5 7021-8 #### [facility] CLIA [id number] [address] [place] [address] [place] Neutrophils (Bld) [#/Vol] 6.58 10*3/uL Normal 1.45-7.50 [facility] Comment on above: Order Comment: Speci men Type: BLOOD SPECIMEN Ordering Facility: [facility] Address: [address] [place] [address] Performed By: #### 5 7021-8 #### [facility] CLIA [id number] [address] [place] [address] [place] Neutrophils/100 WBC (Bld) 66.9 % Normal [facility] Comment on above: Order Comment: Speci men Type: BLOOD SPECIMEN Ordering Facility: [facility] Address: [address] [place] [address] Performed By: #### 5 7021-8 #### [facility] CLIA [id number] [address] [place] [address] [place] Nucleated RBC (Bld) [#/Vol] 10*3/uL Normal <0.01 [facility] Comment on above: Order Comment: Speci men Type: BLOOD SPECIMEN Ordering Facility: [facility] Address: [address] [place] [address] Performed By: #### 5 7021-8 #### [facility] CLIA [id number] [address] [place] [address] [place] Nucleated RBC/100 WBC (Bld) [Ratio] 0.0 /100 WBC Normal [facility] Comment on above: Order Comment: Speci men Type: BLOOD SPECIMEN Ordering Facility: [facility] Address: [address] [place] [address] Performed By: #### 5 7021-8 #### [facility] CLIA [id number] [address] [place] [address] [place] Platelet mean volume (Bld) [Entitic vol] 10.2 fL Normal 9.0-12.7 [facility] Comment on above: Order Comment: Speci men Type: BLOOD SPECIMEN Ordering Facility: [facility] Address: [address] [place] [address] Performed By: #### 5 7021-8 #### [facility] CLIA [id number] [address] [place] [address] [place] Platelets (Bld) [#/Vol] 677 10*3/uL High 150-400 [facility] Comment on above: Order Comment: Speci men Type: BLOOD SPECIMEN Ordering Facility: [facility] Address: [address] [place] [address] Performed By: #### 5 7021-8 #### [facility] CLIA [id number] [address] [place] [address] [place] RBC (Bld) [#/Vol] 3.48 10*6/uL Low 3.90-5.20 [facility] Comment on above: Order Comment: Speci men Type: BLOOD SPECIMEN Ordering Facility: [facility] Address: [address] [place] [address] Performed By: #### 5 7021-8 #### [facility] CLIA [id number] [address] [place] [address] [place] WBC (Bld) [#/Vol] 9.84 10*3/uL Normal 3.70-11.00 [facility] Comment on above: Order Comment: Speci men Type: BLOOD SPECIMEN Ordering Facility: [facility] Address: [facility] [place] [id number] Performed By: #### 5 7021-8 #### [facility] CLIA [id number] [address] [place] [address] [place] CNOVSPon 02-22-2025 CNOVSP Visit (SP) Office (H EMAWS) -- TELMA TINEO ([id number]) 1940 F Date Time Provider Department 02/22/25 [...] presented with painless jaundice, admitted initially at [facility], transferred for further work up at [facility]. Saw hepatobiliary surgery there, noted pancreatic mass. [...] sugar. Blood-Glucose Meter,Continuous (FREESTYLE TOLU 3 READER) [facility] Use to check blood sugar at least four (4) times daily. Blood-Glucose Sensor (FREESTYLE TOLU 3 PLUS SENSOR) benjamin Apply new sensor every fifteen (15) days to upper arm. metoprolol tartr (more content not included)... Normal [facility] ([id number]) 1940 F Date Time Provider Department 02/22/25 [...] all this as it was discussed at today. MAGNUS Amos Melissa 02/23/2025 9:32 AM [...] MA - Fully Assessed Reason for Visit: Future [...] - Blood-Glucose Meter,Continuous (FREESTYLE TOLU 3 READER) [facility] Use to check blood sugar at least [...] once daily. - Blood Pressure Test Kit-Large ([employer] ARM BP MONITOR) 1 Each once daily. [...] 05/20/2023 Impaired cognition [R41.89] 05/20/2023 Diagnosed: 05/20/2023 detention current use of anticoagulant therapy *05/20/2023 Diagnosed: [...] by MARIA ISABEL SILVERIO on 02/23/25 Normal [facility] Comprehensive metabolic 2000 panelOrdered By: Angelia Paez on 02-22-2025 Albumin [Mass/Vol] 3.5 g/dL Low 3.9 - 4.9 g/dL [facility] ALP [Catalytic activity/Vol] 137 U/L High 34 - 123 U/L [facility] ALT [Catalytic activity/Vol] 26 U/L 7 - 38 U/L [facility] Anion gap [Moles/Vol] 9 mmol/L 8 - 15 mmol/L [facility] AST [Catalytic activity/Vol] 19 U/L 13 - 35 U/L [facility] Bilirubin [Mass/Vol] 0.8 mg/dL 0.2 - 1 .3 mg/dL [facility] Calcium [Mass/Vol] 9.1 mg/dL 8.5 - 10. 2 mg/dL [facility] Chloride [Moles/Vol] 101 mmol/L 98 - 10 7 mmol/L [facility] CO2 [Moles/Vol] 21 mmol/L Low 22 - 30 mmol/L [facility] Creatinine [Mass/Vol] 0.52 mg/dL Low 0.58 - 0.96 mg/dL [facility] GFR/1.73 sq M.predicted among non-blacks MDRD (S/P/Bld) [Vol rate/Area] 92 mL/min/{1.73_m2} - PINF [facility] Comment on above: Estimated Glomerular Filtration [...] 407 mg/dL High 74 - 99 mg/dL [facility] Comment on above: The [place] Diab[employer] s Association (ADA) provides guidance for [...] Standards of Medical Care in Diabetes 2016, [place] Diabetes Association. Diabetes Care. 2016.39(Suppl 1). Interpretation and review of laboratory results Abnormal [facility] Potassium [Moles/Vol] 4.3 mmol/L 3.7 - 5.1 mmol/L [facility] Protein [Mass/Vol] 6.7 g/dL 6.3 - 8.0 g/dL [facility] Sodium [Moles/Vol] 131 mmol/L Low 136 - 144 mmol/L [facility] Urea nitrogen [Mass/Vol] 10 mg/dL 7 - 21 mg/dL [facility] Comprehensive metabolic 2000 panelon 02-22-2025 Albumin [Mass/Vol] 3.5 g/dL Low 3.9-4.9 [facility] Comment on above: Order Comment: Dayron stinson Type: BLOOD SPECIMEN Ordering Facility: [facility] Address: [address] [place] [address] Performed By: #### 2 4323-8 #### [facility] CLIA [id number] [address] [place] [address] [place] ALP [Catalytic activity/Vol] 137 U/L High 34-123 [facility] Comment on above: Order Comment: Dayron stinson Type: BLOOD SPECIMEN Ordering Facility: [facility] Address: [address] [place] [address] Performed By: #### 2 4323-8 #### [facility] CLIA [id number] [address] [place], [place] [address] [place] ALT [Catalytic activity/Vol] 26 U/L Normal 7-38 [facility] Comment on above: Order Comment: Dayron stinson Type: BLOOD SPECIMEN Ordering Facility: [facility] Address: [address] [place] [address] Performed By: #### 2 4323-8 #### [facility] CLIA [id number] [address] [place] [address] [place] Anion gap [Moles/Vol] 9 mmol/L Normal 8-15 [facility] Comment on above: Order Comment: Speci men Type: BLOOD SPECIMEN Ordering Facility: [facility] Address: [address] [place] [address] Performed By: #### 2 4323-8 #### [facility] CLIA [id number] [address] [place] [address] [place] AST [Catalytic activity/Vol] 19 U/L Normal 13-35 [facility] Comment on above: Order Comment: Speci men Type: BLOOD SPECIMEN Ordering Facility: [facility] Address: [address] [place] [address] Performed By: #### 2 4323-8 #### [facility] CLIA [id number] [address] [place] [address] [place] Bilirubin [Mass/Vol] 0.8 mg/dL Normal 0.2-1.3 [facility] Comment on above: Order Comment: Speci men Type: BLOOD SPECIMEN Ordering Facility: [facility] Address: [address] [place] [address] Performed By: #### 2 4323-8 #### [facility] CLIA [id number] [address] [place] [address] [place] Calcium [Mass/Vol] 9.1 mg/dL Normal 8.5-10.2 [facility] Comment on above: Order Comment: Speci men Type: BLOOD SPECIMEN Ordering Facility: [facility] Address: [address] [place] [address] Performed By: #### 2 4323-8 #### [facility] CLIA [id number] [address] [place] [address] [place] Chloride [Moles/Vol] 101 mmol/L Normal 98-107 [facility] Comment on above: Order Comment: Speci men Type: BLOOD SPECIMEN Ordering Facility: [facility] Address: [address] [place], [place] [address] Performed By: #### 2 4323-8 #### [facility] CLIA [id number] [address] [place] [address] [place] CO2 [Moles/Vol] 21 mmol/L Low 22-30 [facility] Comment on above: Order Comment: Speci men Type: BLOOD SPECIMEN Ordering Facility[facility] Address: [address] [place] [address] Performed By: #### 2 4323-8 #### [facility] CLIA [id number] [address] [place] [address] [place] Creatinine [Mass/Vol] 0.52 mg/dL Low 0.58-0.96 [facility] Comment on above: Order Comment: Speci men Type: BLOOD SPECIMEN Order[facility] Address: [address] [place] [address] Performed By: #### 2 4323-8 #### [facility] [id number] [address] [place] [address] Creatinine and Glomerular filtration rate.predicted panel (S/P/Bld) 92 mL/min/1.73m??? Normal >=60 [facility] Comment on above: Order Comment: Speci men Type: BLOOD SPECIMEN Ordering Facility: [facility] Address: [address] [place] [address] Result Comment: Kya mated Glomerular Filtration Rate [...] GFR. Performed By: #### 2 4323-8 #### [facility] CLIA [id number] [address] [place] [address] [place] Glucose [Mass/Vol] 407 mg/dL High 74-99 [facility] Comment on above: Order Comment: Dayron stinson Type: BLOOD SPECIMEN Ordering Facility: [facility] Address: [address] [place], [place] [id number] Result Comment: The [place] Diabetes Association (ADA) provides guidance for cutoff [...] Standards of Medical Care in Diabetes 2016, [place] Diabetes Association. Diabetes Care. 2016.39(Suppl 1). Performed By: #### 2 4323-8 #### [facility] [id number] [address] [place] [address] [place] Potassium [Moles/Vol] 4.3 mmol/L Normal 3.7-5.1 [facility] Comment on above: Order Comment: Dayron stinson Type: BLOOD SPECIMEN Ordering Facility: [facility] Address: [address] [place] [address] Performed By: #### 2 4323-8 #### [facility] [id number] [address] [place] [address] [place] Protein [Mass/Vol] 6.7 g/dL Normal 6.3-8.0 [facility] Comment on above: Order Comment: Dayron stinson Type: BLOOD SPECIMEN Ordering Facility: [facility] Address: [address] [place] [address] Performed By: #### 2 4323-8 #### [facility] CLIA [id number] [address] [place] [address] [place] Sodium [Moles/Vol] 131 mmol/L Low 136-144 [facility] Comment on above: Order Comment: Speci men Type: BLOOD SPECIMEN Ordering Facility: [facility] Address: [facility] [place] [address] Performed By: #### 2 4323-8 #### [facility] CLIA [id number] [address] [place] [address] [place] Urea nitrogen [Mass/Vol] 10 mg/dL Normal 7-21 [facility] Comment on above: Order Comment: Speci men Type: BLOOD SPECIMEN Ordering Facility[facility] Address: [address] [place] [address] Performed By: #### 2 4323-8 #### [facility] CLIA [id number] [address] [place] [address] [place] XR CHEST 2V FRONTAL/LATon [...] decreased reticular opacities at the lung bases Seam Steamer: AMBER Transcribe Date/Time: Feb 22 2025 11:18A Dictated by : ELOISA YANG MD This examination was interpreted and the report reviewed and electronically signed by: ELOISA YANG MD on Feb 22 2025 11:19AM EST [id number] Normal [facility] XR Chest PA and Lateralon IMPRESSION: Mild residual though decreased reticular opacities at the lung bases Seam Steamer: AMBER Transcribe Date/Time: Feb 22 2025 11:18A Dictated [...] humeral greater tuberosities. DIVISION OF RADIOLOGY Provider, [facility] - 02/22/2025 * * *Final Report* * [...] decreased reticular opacities at the lung bases Seam Steamer: AMBER Transcribe Date/Time: Feb 22 2025 11:18A Dictated by : ELOISA YANG MD This examination was interpreted and the report reviewed and electronically signed by: ELOISA YANG MD on Feb 22 2025 11:19AM EST [facility] Radiology Study observation (narrative) [facility] XR Chest PA and LateralOrder ed By: [facility]cf Provider on 02-22-2025 [facility] Lenin 02-15-2025 [facility] Telephone ([place]) -- TELMA TINEO ([id number]) 1940 F Date Time Provider Department 02/15/25 RADHA LOUIS During your visit today, we recorded the following information about you: Allergies As of Date: 02/15/2025 Noted Allergy Reaction PENICILLINS 09/14/2021 10 - Anaphylaxis TETRACYCLINE 09/14/2021 2 - Rash TRAMADOL 07/01/2024 5 - Intolerance Comments: Trembling Date Reviewed: 02/14/2025 Reviewed by: Gloria Last, RN - Fully Assessed Prescriptions as of [...] - Blood-Glucose Meter,Continuous (FREESTYLE TOLU 3 READER) [facility] Use to check blood sugar at least [...] once daily. - Blood Pressure Test Kit-Large ([employer] ARM BP MONITOR) 1 Each once daily. [...] 05/20/2023 Impaired cognition [R41.89] 05/20/2023 Diagnosed: 05/20/2023 detention current use of anticoagulant therapy *05/20/2023 Diagnosed: [...] by RADHA LOUIS on 02/15/25 [facility] Telephone (HEMCreativeD) -- TELMA TINEO ([id number]) 1940 F Date Time Provider Department 02/15/25 MARIA ISABEL SILVERIO During your visit today, we recorded the following information about you: Maria Isabel Silverio RN 02/15/2025 10:58 AM Signed DISCHARGE CALL BACK Today's date: February 15, 2025 Notified of Pt discharge by: Erin Patient discharged on 02/14/25 from [facility] to Home Primary Cancer Diagnosis: pancreatic Admitting Diagnosis: acute pneumonia Discharge Summary/SBAR reviewed: Yes Handoff Discussed with [employer]: N/A Psychosocial Risk Factors: None If patient [...] Yes Patient reminded of follow-up appointment with [facility] provider, Dr. Yusuf on 02/22/25: Yes Discussed Has follow up with PCP. Will discuss labs with Dr. Yusuf and ok for port on . Will call back if plan needs to change. Timothy is picking up Rx at this time. Questions answered. PATIENT EDUCATION / REINFORCEMENT Patient verbalizes understanding of when to seek Medical Attention? YES Patient verbalizes understanding of after hours and weekend phone number? YES MAGNUS Yuan Cathleen, RN 02/15/2025 12:[address] Yusuf and ok for port this . Keep appointments as scheduled. Elaina Silverio RN Allergies As of Date: 02/15/2025 Noted Allergy Reaction PENICILLINS 09/14/2021 10 - Anaphylaxis TETRACYCLINE 09/14/2021 2 - Rash TRAMADOL 07/01/2024 5 - Intolerance Comments: Trembling Date Reviewed: 02/14/2025 Reviewed by: Gloria Last RN - Fully Assessed Reason for Visit: [employer] - Hospital Follow Up [3601] Prescriptions as [...] - Blood-Glucose Meter,Continuous (FREESTYLE TOLU 3 READER) [facility] Use to check blood sugar at least [...] once daily. - Blood Pressure Test Kit-Large ([employer]mu[employer] ARM BP MONITOR) 1 Each once daily. Problem List As Of Date 02/15/2025 Noted Resolved Mild intermittent asthma without complication [*09/14/2021 Primary hypertension [I10] 09/14/2021 Type 2 diabetes mellitu (more content not included)... Normal [facility] Basic metabolic 2000 panelon 02-14-2025 Anion gap [Moles/Vol] 10 mmol/L Normal 8-15 [facility] Comment on above: Order Comment: Speci men Type: BLOOD SPECIMENOrdering Facility: [facility] Address: [address] [place] [address] Performed By: #### 2 4321-2 ####[facility] [id number] [place] [address] [place] Calcium [Mass/Vol] 8.3 mg/dL Low 8.5-10.2 [facility] Comment on above: Order Comment: Speci men Type: BLOOD SPECIMENOrdering Facility: [facility] Address: [address] [place] [address] Performed By: #### 2 4321-2 ####[facility] [id number] [place] [address] [place] Chloride [Moles/Vol] 102 mmol/L Normal 98-107 [facility] Comment on above: Order Comment: Speci men Type: BLOOD SPECIMENOrdering Facility: [facility] Address: [address] [place] [address] Performed By: #### 2 4321-2 ####[facility]ORY[facility] [id number] [address] [place] CO2 [Moles/Vol] 21 mmol/L Low 22-30 [facility] Comment on above: Order Comment: Speci men Type: BLOOD SPECIMENOrdering Facility: [facility] Address: [address] [place] [address] Performed By: #### 2 4321-2 ####[facility] [id number] [address] [place] Creatinine [Mass/Vol] 0.54 mg/dL Low 0.58-0.96 [facility] Comment on above: Order Comment: Speci men Type: BLOOD SPECIMENOrdering Facility: [facility] [facility]OSP[facility] Address: [address] [place] [address] Performed By: #### 2 4321-2 ####[facility]ORATORYCLIA [id number] [address] Creatinine and Glomerular filtration rate.predicted panel (S/P/Bld) 91 mL/min/1.73m??? Normal >=60 [facility] Comment on above: Order Comment: Speci men Type: BLOOD SPECIMENOrdering Facility: [facility] Address: [address] [place] [address] Result Comment: Kya mated Glomerular Filtration Rate [...] GFR. Performed By: #### 2 4321-2 ####[facility]ORATORYCLIA [id number] [address] [place] Glucose [Mass/Vol] 166 mg/dL High 74-99 [facility] Comment on above: Order Comment: Speci men Type: BLOOD SPECIMENOrdering Facility: [facility] Address: [address] [place] [address] Result Comment: The [place] Diabetes Association (ADA) provides guidance for cutoff [...] Standards of Medical Care in Diabetes 2016, [place] [employer]. Diabetes Care. 2016.39(Suppl 1). Performed By: #### 2 4321-2 ####[facility]ATORYCLIA [id number] [address] [place] Potassium [Moles/Vol] 3.6 mmol/L Low 3.7-5.1 [facility] Comment on above: Order Comment: Speci men Type: BLOOD SPECIMENOrdering Facility: [facility] Address: [address] [place] [address] Performed By: #### 2 4321-2 ####[facility]ORATORYCLIA [id number] [address] STATES [facility] Sodium [Moles/Vol] 133 mmol/L Low 136-144 [facility] Comment on above: Order Comment: Speci men Type: BLOOD SPECIMENOrdering Facility: [facility] Address: [address] [place] [address] Performed By: #### 2 4321-2 ####[facility]ORATORYCLIA [id number] [address] Urea nitrogen [Mass/Vol] 8 mg/dL Normal 7-21 [facility] Comment on above: Order Comment: Speci men Type: BLOOD SPECIMENOrdering Facility: [facility] Address: [address] [place] [address] Performed By: #### 2 4321-2 ####[facility]ATORYCLIA [id number] [place] [address] [place] CBC W Auto Differential pane l (Bld)on 02-14-2025 Basophils (Bld) [#/Vol] 10*3/uL Normal <0.11 [facility] Comment on above: Order Comment: Speci men Type: BLOOD SPECIMENOrdering Facility: [facility] Address: [address] [place] [address] Performed By: #### 5 7021-8 ####[facility]ORATORYCLIA [id number] [address] STATES [facility] Basophils/100 WBC (Bld) 0.7 % Normal [facility] Comment on above: Order Comment: Speci men Type: BLOOD SPECIMENOrdering Facility: [facility] Address: [address] [place] [address] Performed By: #### 5 7021-8 ####[facility]ATORYCLIA [id number] [address] Differential cell count method Nom (Bld) Auto Normal [facility] Comment on above: Order Comment: Speci men Type: BLOOD SPECIMENOrdering Facility: [facility] Address: [address] [place] [address] Performed By: #### 5 7021-8 ####[facility]ORATORYCLIA [id number] [address] [place] Eosinophils (Bld) [#/Vol] 0.11 10*3/uL Normal <0.46 [facility] Comment on above: Order Comment: Speci men Type: BLOOD SPECIMENOrdering Facility: [facility] Address: [address] [place] [address] Performed By: #### 5 7021-8 ####[facility]ATORYCLIA [id number] [address] STATES [facility] Eosinophils/100 WBC (Bld) 3.7 % Normal [facility] Comment on above: Order Comment: Speci men Type: BLOOD SPECIMENOrdering Facility: [facility] Address: [address] [place] [address] Performed By: #### 5 7021-8 ####[facility]ATORYCLIA [id number] [address] [place] Erythrocyte distribution width (RBC) [Ratio] 14.0 % Normal 11.5-15.0 [facility] Comment on above: Order Comment: Speci men Type: BLOOD SPECIMENOrdering Facility: [facility] Address: [address] [place] [address] Performed By: #### 5 7021-8 ####[facility] LABORATORYCLIA [id number] [address] [place] Hematocrit (Bld) [Volume fraction] 24.7 % Low 36.0-46.0 [facility] Comment on above: Order Comment: Speci men Type: BLOOD SPECIMENOrdering Facility: [facility] Address: [address] [place] [address] Performed By: #### 5 7021-8 ####[facility]ATORYCLIA [id number] [address] [place] Hemoglobin (Bld) [Mass/Vol] 8.5 g/dL Low 11.5-15.5 [facility] Comment on above: Order Comment: Speci men Type: BLOOD SPECIMENOrdering Facility: [facility] Address: [address] [place] [address] Performed By: #### 5 7021-8 ####[facility]ORATORYCLIA [id number] [address] [place] Immature granulocytes (Bld) [#/Vol] 0.08 10*3/uL Normal <0.10 [facility] Comment on above: Order Comment: Speci men Type: BLOOD SPECIMENOrdering Facility: [facility] Address: [address] [place] [address] Performed By: #### 5 7021-8 ####[facility]ORATORYCLIA [id number] [address] Immature granulocytes/100 WBC (Bld) 2.7 % Normal [facility] Comment on above: Order Comment: Speci men Type: BLOOD SPECIMENOrdering Facility: [facility] Address: [address] [place] [address] Performed By: #### 5 7021-8 ####[facility]ORATORYCLIA [id number] [address] [place] Lymphocytes (Bld) [#/Vol] 0.67 10*3/uL Low 1.00-4.00 [facility] Comment on above: Order Comment: Speci men Type: BLOOD SPECIMENOrdering Facility: [facility] Address: [address] [place] [address] Performed By: #### 5 7021-8 ####[facility]ORATORYCLIA [id number] [address] Lymphocytes/100 WBC (Bld) 22.6 % Normal [facility] Comment on above: Order Comment: Speci men Type: BLOOD SPECIMENOrdering Facility: [facility] Address: [address] [place] [address] Performed By: #### 5 7021-8 ####[facility]ORATORYCLIA [id number] [address] [place] MCH (RBC) [Entitic mass] 31.0 pg Normal 26.0-34.0 [facility] Comment on above: Order Comment: Speci men Type: BLOOD SPECIMENOrdering Facility: [facility] Address: [address] [place] [address] Performed By: #### 5 7021-8 ####[facility]ATORYCLIA [id number] [address] [place] MCHC (RBC) [Mass/Vol] 34.4 g/dL Normal 30.5-36.0 [facility] Comment on above: Order Comment: Speci men Type: BLOOD SPECIMENOrdering Facility: [facility] Address: [address] [place] [address] Performed By: #### 5 7021-8 ####[facility]ORATORYCLIA [id number] [address] MCV (RBC) [Entitic vol] 90.1 fL Normal 80.0-100.0 [facility] Comment on above: Order Comment: Speci men Type: BLOOD SPECIMENOrdering Facility: [facility] Address: [address] [place] [address] Performed By: #### 5 7021-8 ####[facility]ATORYCLIA [id number] [address] [place] Monocytes (Bld) [#/Vol] 0.68 10*3/uL Normal <0.87 [facility] Comment on above: Order Comment: Speci men Type: BLOOD SPECIMENOrdering Facility: [facility] Address: [address] [place] [address] Performed By: #### 5 7021-8 ####[facility]ATORYCLIA [id number] [address] Monocytes/100 WBC (Bld) 23.0 % Normal [facility] Comment on above: Order Comment: Speci men Type: BLOOD SPECIMENOrdering Facility: [facility] Address: [address] [place] [address] Performed By: #### 5 7021-8 ####[facility]ORATORYCLIA [id number] [address] [place] Neutrophils (Bld) [#/Vol] 1.40 10*3/uL Low 1.45-7.50 [facility] Comment on above: Order Comment: Speci men Type: BLOOD SPECIMENOrdering Facility: [facility] Address: [address] [place] [address] Performed By: #### 5 7021-8 ####[facility]ORATORYCLIA [id number] [address] [place] Neutrophils/100 WBC (Bld) 47.3 % Normal [facility] Comment on above: Order Comment: Speci men Type: BLOOD SPECIMENOrdering Facility: [facility] Address: [address] [place] [address] Performed By: #### 5 7021-8 ####[facility]ORATORYCLIA [id number] [place] [address] [place] Nucleated RBC (Bld) [#/Vol] 10*3/uL Normal <0.01 [facility] Comment on above: Order Comment: Speci men Type: BLOOD SPECIMENOrdering Facility: [facility] Address: [address] [place] [address] Performed By: #### 5 7021-8 ####[facility]ATORYCLIA [id number] [address] [place] Nucleated RBC/100 WBC (Bld) [Ratio] 0.0 /100 WBC Normal [facility] Comment on above: Order Comment: Speci men Type: BLOOD SPECIMENOrdering Facility: [facility] Address: [address] [place] [address] Performed By: #### 5 7021-8 ####[facility]ORATORYCLIA [id number] [place] [address] [place] Platelet mean volume (Bld) [Entitic vol] 11.4 fL Normal 9.0-12.7 [facility] Comment on above: Order Comment: Speci men Type: BLOOD SPECIMENOrdering Facility: [facility] Address: [address] [place] [address] Performed By: #### 5 7021-8 ####[facility]ORATORYCLIA [id number] [place] [address] [place] Platelets (Bld) [#/Vol] 192 10*3/uL Normal 150-400 [facility] Comment on above: Order Comment: Speci men Type: BLOOD SPECIMENOrdering Facility: [facility] Address: [address] [place] [address] Performed By: #### 5 7021-8 ####[facility]ATORYCLIA [id number] [place] [address] [place] RBC (Bld) [#/Vol] 2.74 10*6/uL Low 3.90-5.20 [facility] Comment on above: Order Comment: Speci men Type: BLOOD SPECIMENOrdering Facility: [facility] Address: [address] [place] [address] Performed By: #### 5 7021-8 ####[facility]ORATORYCLIA [id number] [place] [address] [place] WBC (Bld) [#/Vol] 2.96 10*3/uL Low 3.70-11.00 [facility] Comment on above: Order Comment: Speci men Type: BLOOD SPECIMENOrdering Facility: [facility] Address: [address] [place] [address] Performed By: #### 5 7021-8 ####[facility]ORATORYCLIA [id number] [place] [address] [place] CNDSon 02-14-2025 CNDS Normal [facility] THERAPY NTon 02-14-2025 THERAPY NT Normal [facility] Basic metabolic 2000 panelon 02-13-2025 Anion gap [Moles/Vol] 12 mmol/L Normal 8-15 [facility] Comment on above: Order Comment: Speci men Type: BLOOD SPECIMENOrdering Facility: [facility] Address: [address] [place] [address] Performed By: #### 2 4321-2 ####[facility]ATORYCLIA [id number] [place] [address] [place] Calcium [Mass/Vol] 8.2 mg/dL Low 8.5-10.2 [facility] Comment on above: Order Comment: Speci men Type: BLOOD SPECIMENOrdering Facility: [facility] Address: [address] [place] [address] Performed By: #### 2 4321-2 ####[facility]ATORYCLIA [id number] [place] [address] [place] Chloride [Moles/Vol] 101 mmol/L Normal 98-107 [facility] Comment on above: Order Comment: Speci men Type: BLOOD SPECIMENOrdering Facility: [facility] Address: [address] [place] [address] Performed By: #### 2 4321-2 ####[facility]ATORYCLIA [id number] [place] [address] [place] CO2 [Moles/Vol] 19 mmol/L Low 22-30 [facility] Comment on above: Order Comment: Dayron stinson Type: BLOOD SPECIMENOrdering Facility: [facility] Address: [address] [place] [address] Performed By: #### 2 4321-2 ####[facility]ORATORYCLIA [id number] [place] [id number] [place] Creatinine [Mass/Vol] 0.61 mg/dL Normal 0.58-0.96 [facility] Comment on above: Order Comment: Dayron men Type: BLOOD SPECIMENOrdering Facility: [facility] Address: [address] [place] [address] Performed By: #### 2 4321-2 ####[facility]ORATORYCLIA [id number] [address] Creatinine and Glomerular filtration rate.predicted panel (S/P/Bld) 88 mL/min/1.73m??? Normal >=60 [facility] Comment on above: Order Comment: Dayron shantell Type: BLOOD SPECIMENOrdering Facility: [facility] Address: [address] [place] [address] Result Comment: Kya mated Glomerular Filtration Rate [...] GFR. Performed By: #### 2 4321-2 ####[facility]ATORYCLIA [id number] [place] [id number] [place] Glucose [Mass/Vol] 168 mg/dL High 74-99 [facility] Comment on above: Order Comment: Dayron stinson Type: BLOOD SPECIMENOrdering Facility: [facility] Address: [address] [place] [address] Result Comment: The [place] Diabetes Association (ADA) provides guidance for cutoff [...] Standards of Medical Care in Diabetes 2016, [place] [employer]. Diabetes Care. 2016.39(Suppl 1). Performed By: #### 2 4321-2 ####[facility]ORATORYCLIA [id number] [address] Potassium [Moles/Vol] 3.7 mmol/L Normal 3.7-5.1 [facility] Comment on above: Order Comment: Dayron stinson Type: BLOOD SPECIMENOrdering Facility: [facility] Address: [address] [place] [address] Performed By: #### 2 4321-2 ####[facility]PITALIA [id number] [address] Sodium [Moles/Vol] 132 mmol/L Low 136-144 [facility] Comment on above: Order Comment: Dayron stinson Type: BLOOD SPECIMENOrdering Facility: [facility] Address: [address] [place] [address] Performed By: #### 2 4321-2 ####[facility] SYSTEMCLIA [id number] [address] Urea nitrogen [Mass/Vol] 9 mg/dL Normal 7-21 [facility] Comment on above: Order Comment: Speci men Type: BLOOD SPECIMENOrdering Facility: [facility] Address: [address] [place] [address] Performed By: #### 2 4321-2 ####[facility]ORATORYCLIA [id number] [address] CBC panel Auto (Bld)on 02-13 Erythrocyte distribution width (RBC) [Ratio] 13.6 % Normal 11.5-15.0 [facility] Comment on above: Order Comment: Elinori men Type: BLOOD SPECIMENOrdering Facility: [facility] Address: [address] [place] [address] Performed By: #### 5 8410-2 ####[facility]ORATORYCLIA [id number] [address] Hematocrit (Bld) [Volume fraction] 25.8 % Low 36.0-46.0 [facility] Comment on above: Order Comment: Speci men Type: BLOOD SPECIMENOrdering Facility: [facility] Address: [address] [place] [address] Performed By: #### 5 8410-2 ####[facility]ORATORYCLIA [id number] [address] [place] Hemoglobin (Bld) [Mass/Vol] 8.9 g/dL Low 11.5-15.5 [facility] Comment on above: Order Comment: Speci men Type: BLOOD SPECIMENOrdering Facility: [facility] Address: [address] [place] [address] Performed By: #### 5 8410-2 ####[facility]ATORYCLIA [id number] [address] MCH (RBC) [Entitic mass] 30.9 pg Normal 26.0-34.0 [facility] Comment on above: Order Comment: Speci men Type: BLOOD SPECIMENOrdering Facility: [facility] Address: [address] [place] [address] Performed By: #### 5 8410-2 ####[facility]ATORYCLIA [id number] [address] [place] MCHC (RBC) [Mass/Vol] 34.5 g/dL Normal 30.5-36.0 [facility] Comment on above: Order Comment: Speci men Type: BLOOD SPECIMENOrdering Facility: [facility] Address: [address] [place] [address] Performed By: #### 5 8410-2 ####[facility]ORATORYCLIA [id number] [place] [address] [place] MCV (RBC) [Entitic vol] 89.6 fL Normal 80.0-100.0 [facility] Comment on above: Order Comment: Speci men Type: BLOOD SPECIMENOrdering Facility: [facility] Address: [address] [place] [address] Performed By: #### 5 8410-2 ####[facility]ATORYCLIA [id number] [place] [address] [place] Nucleated RBC (Bld) [#/Vol] 10*3/uL Normal <0.01 [facility] Comment on above: Order Comment: Speci men Type: BLOOD SPECIMENOrdering Facility: [facility] Address: [address] [place] [address] Performed By: #### 5 8410-2 ####[facility]ATORYCLIA [id number] [address] [place] Platelet mean volume (Bld) [Entitic vol] 11.6 fL Normal 9.0-12.7 [facility] Comment on above: Order Comment: Speci men Type: BLOOD SPECIMENOrdering Facility: [facility] Address: [address] [place] [address] Performed By: #### 5 8410-2 ####[facility]ATORYCLIA [id number] [address] [place] Platelets (Bld) [#/Vol] 148 10*3/uL Low 150-400 [facility] Comment on above: Order Comment: Speci men Type: BLOOD SPECIMENOrdering Facility: [facility] Address: [address] [place] [address] Performed By: #### 5 8410-2 ####[facility]ORATORYCLIA [id number] [place] [address] [place] RBC (Bld) [#/Vol] 2.88 10*6/uL Low 3.90-5.20 [facility] Comment on above: Order Comment: Speci men Type: BLOOD SPECIMENOrdering Facility: [facility] Address: [address] [place] [address] Performed By: #### 5 8410-2 ####[facility]ORATORYCLIA [id number] [place] [address] [place] WBC (Bld) [#/Vol] 2.36 10*3/uL Low 3.70-11.00 [facility] Comment on above: Order Comment: Speci men Type: BLOOD SPECIMENOrdering Facility: [facility] Address: [address] [place] [address] Performed By: #### 5 8410-2 ####[facility]ORATORYCLIA [id number] [address] [place] CONSULT PROGon 02-13-2025 CONSULT PROG Normal [facility] THERAPY NTon 02-13-2025 THERAPY NT Normal [facility] Basic metabolic 2000 panelon 02-12-2025 Anion gap [Moles/Vol] 9 mmol/L Normal 8-15 [facility] Comment on above: Order Comment: Speci men Type: BLOOD SPECIMENOrdering Facility: [facility] Address: [address] [place] [address] Performed By: #### 2 4321-2 ####[facility]ORATORYCLIA [id number] [address] [place] Calcium [Mass/Vol] 7.3 mg/dL Low 8.5-10.2 [facility] Comment on above: Order Comment: Speci men Type: BLOOD SPECIMENOrdering Facility: [facility] Address: [address] [place] [address] Performed By: #### 2 4321-2 ####[facility]ATORYCLIA [id number] [address] [place] Chloride [Moles/Vol] 100 mmol/L Normal 98-107 [facility] Comment on above: Order Comment: Speci men Type: BLOOD SPECIMENOrdering Facility: [facility] Address: [address] [place] [address] Performed By: #### 2 4321-2 ####[facility]ORATORYCLIA [id number] [place] [address] [place] CO2 [Moles/Vol] 18 mmol/L Low 22-30 [facility] Comment on above: Order Comment: Speci men Type: BLOOD SPECIMENOrdering Facility: [facility] Address: [address] [place] [address] Performed By: #### 2 4321-2 ####[facility]ORATORYCLIA [id number] [place] [id number] [place] Creatinine [Mass/Vol] 0.58 mg/dL Normal 0.58-0.96 [facility] Comment on above: Order Comment: Speci men Type: BLOOD SPECIMENOrdering Facility: [facility] Address: [address] [place] [address] Performed By: #### 2 4321-2 ####[facility]ORATORYCLIA [id number] [address] Creatinine and Glomerular filtration rate.predicted panel (S/P/Bld) 89 mL/min/1.73m??? Normal >=60 [facility] Comment on above: Order Comment: Speci men Type: BLOOD SPECIMENOrdering Facility: [facility] Address: [address] [place] [address] Result Comment: Kya mated Glomerular Filtration Rate [...] GFR. Performed By: #### 2 4321-2 ####[facility]ATORYCLIA [id number] [address] [place] Glucose [Mass/Vol] 144 mg/dL High 74-99 [facility] Comment on above: Order Comment: Speci shantell Type: BLOOD SPECIMENOrdering Facility: [facility] Address: [address] [place] [address] Result Comment: The [place] Diabetes Association (ADA) provides guidance for cutoff [...] Standards of Medical Care in Diabetes 2016, [place] [employer]. Diabetes Care. 2016.39(Suppl 1). Performed By: #### 2 4321-2 ####[facility]ORATORYCLIA [id number] [address] [place] Potassium [Moles/Vol] 3.6 mmol/L Low 3.7-5.1 [facility] Comment on above: Order Comment: Speci men Type: BLOOD SPECIMENOrdering Facility: [facility] Address: [address] [place] [address] Performed By: #### 2 4321-2 ####[facility]ORATORYCLIA [id number] [address] [place] Sodium [Moles/Vol] 127 mmol/L Low 136-144 [facility] Comment on above: Order Comment: Speci men Type: BLOOD SPECIMENOrdering Facility: [facility] Address: [address] [place] [address] Performed By: #### 2 4321-2 ####[facility]ORATORYCLIA [id number] [address] STATES [facility] Urea nitrogen [Mass/Vol] 7 mg/dL Normal 7-21 [facility] Comment on above: Order Comment: Speci men Type: BLOOD SPECIMENOrdering Facility: [facility] Address: [address] [place] [address] Performed By: #### 2 4321-2 ####[facility]ORATORYCLIA [id number] [address] [place] CASE MANAGEMon 02-12-2025 CASE MANAGEM Normal [facility] CBC W Auto Differential pane l (Bld)on 02-12-2025 Basophils (Bld) [#/Vol] 10*3/uL Normal <0.11 [facility] Comment on above: Order Comment: Speci men Type: BLOOD SPECIMENOrdering Facility: [facility] Address: [address] [place] [address] Performed By: #### 5 7021-8 ####[facility]ORATORYCLIA [id number] [address] [place] Basophils/100 WBC (Bld) 0.0 % Normal [facility] Comment on above: Order Comment: Speci men Type: BLOOD SPECIMENOrdering Facility: [facility] Address: [address] [place] [address] Performed By: #### 5 7021-8 ####[facility]ORATORYCLIA [id number] [address] [place] Differential cell count method Nom (Bld) Auto Normal [facility] Comment on above: Order Comment: Speci men Type: BLOOD SPECIMENOrdering Facility: [facility] Address: [address] [place] [address] Performed By: #### 5 7021-8 ####[facility]ORATORYCLIA [id number] [place] [address] [place] Eosinophils (Bld) [#/Vol] 0.04 10*3/uL Normal <0.46 [facility] Comment on above: Order Comment: Speci men Type: BLOOD SPECIMENOrdering Facility: [facility] Address: [address] [place] [address] Performed By: #### 5 7021-8 ####[facility]ORATORYCLIA [id number] [address] [place] Eosinophils/100 WBC (Bld) 1.8 % Normal [facility] Comment on above: Order Comment: Speci men Type: BLOOD SPECIMENOrdering Facility: [facility] Address: [address] [place] [address] Performed By: #### 5 7021-8 ####[facility]ORATORYCLIA [id number] [address] Erythrocyte distribution width (RBC) [Ratio] 13.5 % Normal 11.5-15.0 [facility] Comment on above: Order Comment: Speci men Type: BLOOD SPECIMENOrdering Facility: [facility] Address: [address] [place] [address] Performed By: #### 5 7021-8 ####[facility]ORATORYCLIA [id number] [address] [place] Hematocrit (Bld) [Volume fraction] 25.1 % Low 36.0-46.0 [facility] Comment on above: Order Comment: Speci men Type: BLOOD SPECIMENOrdering Facility: [facility] Address: [address] [place] [address] Performed By: #### 5 7021-8 ####[facility] LABORATORYCLIA [id number] [address] [place] Hemoglobin (Bld) [Mass/Vol] 8.3 g/dL Low 11.5-15.5 [facility] Comment on above: Order Comment: Speci men Type: BLOOD SPECIMENOrdering Facility: [facility] Address: [address] [place] [address] Performed By: #### 5 7021-8 ####[facility]ORATORYCLIA [id number] [address] [place] Immature granulocytes (Bld) [#/Vol] 0.05 10*3/uL Normal <0.10 [facility] Comment on above: Order Comment: Speci men Type: BLOOD SPECIMENOrdering Facility: [facility] Address: [address] [place] [address] Performed By: #### 5 7021-8 ####[facility]ORATORYCLIA [id number] [address] Immature granulocytes/100 WBC (Bld) 2.2 % Normal [facility] Comment on above: Order Comment: Speci men Type: BLOOD SPECIMENOrdering Facility: [facility] Address: [address] [place] [address] Performed By: #### 5 7021-8 ####[facility] LABORATORYCLIA [id number] [address] STATES [facility] Lymphocytes (Bld) [#/Vol] 0.35 10*3/uL Low 1.00-4.00 [facility] Comment on above: Order Comment: Speci men Type: BLOOD SPECIMENOrdering Facility: [facility] Address: [address] [place] [address] Performed By: #### 5 7021-8 ####[facility]ORATORYCLIA [id number] [address] Lymphocytes/100 WBC (Bld) 15.4 % Normal [facility] Comment on above: Order Comment: Speci men Type: BLOOD SPECIMENOrdering Facility: [facility] Address: [address] [place] [address] Performed By: #### 5 7021-8 ####[facility]ORATORYCLIA [id number] [address] STATES [facility] MCH (RBC) [Entitic mass] 30.4 pg Normal 26.0-34.0 [facility] Comment on above: Order Comment: Speci men Type: BLOOD SPECIMENOrdering Facility: [facility] Address: [address] [place] [address] Performed By: #### 5 7021-8 ####[facility]ORATORYCLIA [id number] [address] [place] MCHC (RBC) [Mass/Vol] 33.1 g/dL Normal 30.5-36.0 [facility] Comment on above: Order Comment: Speci men Type: BLOOD SPECIMENOrdering Facility: [facility] Address: [address] [place] [address] Performed By: #### 5 7021-8 ####[facility]ORATORYCLIA [id number] [address] MCV (RBC) [Entitic vol] 91.9 fL Normal 80.0-100.0 [facility] Comment on above: Order Comment: Speci men Type: BLOOD SPECIMENOrdering Facility: [facility] Address: [address] [place] [address] Performed By: #### 5 7021-8 ####[facility] LABORATORYCLIA [id number] [address] [place] Monocytes (Bld) [#/Vol] 0.22 10*3/uL Normal <0.87 [facility] Comment on above: Order Comment: Speci men Type: BLOOD SPECIMENOrdering Facility: [facility] Address: [address] [place] [address] Performed By: #### 5 7021-8 ####[facility] LABORATORYCLIA [id number] [address] [place] Monocytes/100 WBC (Bld) 9.7 % Normal [facility] Comment on above: Order Comment: Speci men Type: BLOOD SPECIMENOrdering Facility: [facility] Address: [address] [place] [address] Performed By: #### 5 7021-8 ####[facility] LABORATORYCLIA [id number] [place] [address] [place] Neutrophils (Bld) [#/Vol] 1.61 10*3/uL Normal 1.45-7.50 [facility] Comment on above: Order Comment: Speci men Type: BLOOD SPECIMENOrdering Facility: [facility] Address: [address] [place] [address] Performed By: #### 5 7021-8 ####[facility]ORATORYCLIA [id number] [address] [place] Neutrophils/100 WBC (Bld) 70.9 % Normal [facility] Comment on above: Order Comment: Speci men Type: BLOOD SPECIMENOrdering Facility: [facility] Address: [address] [place] [address] Performed By: #### 5 7021-8 ####[facility]ATORYCLIA [id number] [place] [address] [place] Nucleated RBC (Bld) [#/Vol] 10*3/uL Normal <0.01 [facility] Comment on above: Order Comment: Speci men Type: BLOOD SPECIMENOrdering Facility: [facility] Address: [address] [place] [address] Performed By: #### 5 7021-8 ####[facility]ORATORYCLIA [id number] [address] [place] Nucleated RBC/100 WBC (Bld) [Ratio] 0.0 /100 WBC Normal [facility] Comment on above: Order Comment: Speci men Type: BLOOD SPECIMENOrdering Facility: [facility] Address: [address] [place] [address] Performed By: #### 5 7021-8 ####[facility]ORATORYCLIA [id number] [address] [place] Platelet mean volume (Bld) [Entitic vol] 12.0 fL Normal 9.0-12.7 [facility] Comment on above: Order Comment: Speci men Type: BLOOD SPECIMENOrdering Facility: [facility] Address: [address] [place] [address] Performed By: #### 5 7021-8 ####[facility]ORATORYCLIA [id number] [address] [place] Platelets (Bld) [#/Vol] 117 10*3/uL Low 150-400 [facility] Comment on above: Order Comment: Speci men Type: BLOOD SPECIMENOrdering Facility: [facility] Address: [address] [place] [address] Result Comment: No c lot detected. Performed By: #### 5 7021-8 ####[facility]ORATORYCLIA [id number] [address] [place] RBC (Bld) [#/Vol] 2.73 10*6/uL Low 3.90-5.20 [facility] Comment on above: Order Comment: Speci men Type: BLOOD SPECIMENOrdering Facility: [facility] Address: [address] [place] [address] Performed By: #### 5 7021-8 ####[facility]ORATORYCLIA [id number] [place] [address] [place] WBC (Bld) [#/Vol] 2.27 10*3/uL Low 3.70-11.00 [facility] Comment on above: Order Comment: Speci men Type: BLOOD SPECIMENOrdering Facility: [facility] Address: [address] [place] [address] Performed By: #### 5 7021-8 ####[facility]ORATORYCLIA [id number] [address] [place] CONSULTon 02-12-2025 CONSULT Normal [facility] [...] above: Performed By: #### 3 2355-0 ####[facility]ORATORYCLIA [id number] [place] [address] [place] Basic metabolic 2000 panelon 02-11-2025 Anion gap [Moles/Vol] 11 mmol/L Normal 8-15 [facility] Comment on above: Order Comment: Speci men Type: BLOOD SPECIMENOrdering Facility: [facility] Address: [address] [place] [address] Performed By: #### 2 4325-3, 3040-3, 40588-6 ####[facility]ORATORYCLIA [id number] [place] [address] [place] Calcium [Mass/Vol] 8.2 mg/dL Low 8.5-10.2 [facility] Comment on above: Order Comment: Speci men Type: BLOOD SPECIMENOrdering Facility: [facility] Address: [address] [place] [address] Performed By: #### 2 4325-3, 3040-3, 86660-8 ####[facility]ORATORYCLIA [id number] [place] [address] [place] Chloride [Moles/Vol] 93 mmol/L Low 98-107 [facility] Comment on above: Order Comment: Speci men Type: BLOOD SPECIMENOrdering Facility: [facility] Address: [address] [place] [address] Performed By: #### 2 4325-3, 3040-3, 10560-2 ####[facility]ORATORYCLIA [id number] [place] [id number] [place] CO2 [Moles/Vol] 21 mmol/L Low 22-30 [facility] Comment on above: Order Comment: Speci men Type: BLOOD SPECIMENOrdering Facility: [facility] Address: [address] [place] [address] Performed By: #### 2 4325-3, 3040-3, 03170-4 ####[facility]ATORYCLIA [id number] [place] [address] [place] Creatinine [Mass/Vol] 0.63 mg/dL Normal 0.58-0.96 [facility] Comment on above: Order Comment: Speci men Type: BLOOD SPECIMENOrdering Facility: [facility] Address: [address] [place] [address] Performed By: #### 2 4325-3, 3040-3, 44354-9 ####[facility]ORATORYCLIA [id number] [address] Creatinine and Glomerular filtration rate.predicted panel (S/P/Bld) 88 mL/min/1.73m??? Normal >=60 [facility] Comment on above: Order Comment: Speci men Type: BLOOD SPECIMENOrdering Facility: [facility] Address: [address] [place] [address] Result Comment: Kya mated Glomerular Filtration Rate [...] GFR. Performed By: #### 2 4325-3, 3040-3, 44682-1 ####[facility]ORATORYCLIA [id number] [place] [address] [place] Glucose [Mass/Vol] 251 mg/dL High 74-99 [facility] Comment on above: Order Comment: Speci men Type: BLOOD SPECIMENOrdering Facility: [facility] Address: [address] [place] [address] Result Comment: The [employer] (ADA) provides guidance for cutoff [...] Standards of Medical Care in Diabetes 2016, [place] [employer]. Diabetes Care. 2016.39(Suppl 1). Performed By: #### 2 4325-3, 3040-3, 43030-4 ####[facility]ORATORYCLIA [id number] [place] [id number] [place] Potassium [Moles/Vol] 4.3 mmol/L Normal 3.7-5.1 [facility] Comment on above: Order Comment: Day[place] men Type: BLOOD SPECIMENOrdering Facility: [facility] Address: [address] [place] [address] Performed By: #### 2 4325-3, 3040-3, 51265-1 ####[facility]ATORYCLIA [id number] [place] [address] [place] Sodium [Moles/Vol] 125 mmol/L Low 136-144 [facility] Comment on above: Order Comment: Speci men Type: BLOOD SPECIMENOrdering Facility: [facility] Address: [address] [place] [address] Performed By: #### 2 4325-3, 3040-3, 66488-0 ####[facility]ORATORYCLIA [id number] [place] [address] [place] Urea nitrogen [Mass/Vol] 8 mg/dL Normal 7-21 [facility] Comment on above: Order Comment: Speci men Type: BLOOD SPECIMENOrdering Facility: [facility] Address: [address] [place] [address] Performed By: #### 2 4325-3, 3040-3, 06994-4 ####[facility]ATORYCLIA [id number] [address] [place] CASE MGT INIT ASSESon 2024 CASE MGT INIT ASSES Normal [facility] CBC panel Auto (Bld)on 02-11 Erythrocyte distribution width (RBC) [Ratio] 13.5 % Normal 11.5-15.0 [facility] Comment on above: Order Comment: Speci men Type: BLOOD SPECIMENOrdering Facility: [facility] Address: [address] [place] [address] Performed By: #### 5 8410-2 ####[facility]ORATORYCLIA [id number] [place] [address] [place] Hematocrit (Bld) [Volume fraction] 25.5 % Low 36.0-46.0 [facility] Comment on above: Order Comment: Speci men Type: BLOOD SPECIMENOrdering Facility: [facility] Address: [address] [place] [address] Performed By: #### 5 8410-2 ####[facility]ORATORYCLIA [id number] [place] [address] [place] Hemoglobin (Bld) [Mass/Vol] 8.8 g/dL Low 11.5-15.5 [facility] Comment on above: Order Comment: Speci men Type: BLOOD SPECIMENOrdering Facility: [facility] Address: [address] [place] [address] Performed By: #### 5 8410-2 ####[facility]ORATORYCLIA [id number] [address] MCH (RBC) [Entitic mass] 31.2 pg Normal 26.0-34.0 [facility] Comment on above: Order Comment: Speci men Type: BLOOD SPECIMENOrdering Facility: [facility] Address: [address] [place] [address] Performed By: #### 5 8410-2 ####[facility]ORATORYCLIA [id number] [address] MCHC (RBC) [Mass/Vol] 34.5 g/dL Normal 30.5-36.0 [facility] Comment on above: Order Comment: Speci men Type: BLOOD SPECIMENOrdering Facility: [facility] Address: [address] [place] [address] Performed By: #### 5 8410-2 ####[facility]ATORYCLIA [id number] [address] MCV (RBC) [Entitic vol] 90.4 fL Normal 80.0-100.0 [facility] Comment on above: Order Comment: Speci men Type: BLOOD SPECIMENOrdering Facility: [facility] Address: [address] [place] [address] Performed By: #### 5 8410-2 ####[facility]ATORYCLIA [id number] [address] Nucleated RBC (Bld) [#/Vol] 10*3/uL Normal <0.01 [facility] Comment on above: Order Comment: Speci men Type: BLOOD SPECIMENOrdering Facility: [facility] Address: [address] [place] [address] Performed By: #### 5 8410-2 ####[facility]ATORYCLIA [id number] [address] Platelet mean volume (Bld) [Entitic vol] 12.0 fL Normal 9.0-12.7 [facility] Comment on above: Order Comment: Speci men Type: BLOOD SPECIMENOrdering Facility: [facility] Address: [address] [place] [address] Performed By: #### 5 8410-2 ####[facility]ORATORYCLIA [id number] [place] [address] [place] Platelets (Bld) [#/Vol] 112 10*3/uL Low 150-400 [facility] Comment on above: Order Comment: Speci men Type: BLOOD SPECIMENOrdering Facility: [facility] Address: [address] [place] [address] Result Comment: No c lot detected. Performed By: #### 5 8410-2 ####[facility]ATORYCLIA [id number] [place] [address] [place] RBC (Bld) [#/Vol] 2.82 10*6/uL Low 3.90-5.20 [facility] Comment on above: Order Comment: Speci men Type: BLOOD SPECIMENOrdering Facility: [facility] Address: [address] [place] [address] Performed By: #### 5 8410-2 ####[facility]ATORYCLIA [id number] [address] [place] WBC (Bld) [#/Vol] 1.92 10*3/uL Low 3.70-11.00 [facility] Comment on above: Order Comment: Speci men Type: BLOOD SPECIMENOrdering Facility: [facility] Address: [address] [place] [address] Performed By: #### 5 8410-2 ####[facility]ORATORYCLIA [id number] [address] [place] CONSULTon 02-11-2025 CONSULT Normal [facility] CONSULT Normal [facility] CONSULT PROGon 02-11-2025 CONSULT PROG Normal [facility] CONSULT PROG Normal [facility] CT ABD/PEL W IVCONon 025 CT ABD/PEL W IVCON Normal [facility] ED NOTEon 02-11-2025 ED NOTE HNO ID: [id number] Author: AYAZ HOLLOWAY RN Service: ? Author Type: Registered Nurse Type: ED Notes Filed: 02/11/2025 00:53 Note Text: RN attempted to call floor RN twice. Normal [facility] HISTORY PHYSICALon HISTORY PHYSICAL Normal [facility] Hepatic function 2000 panelo n 02-11-2025 Albumin [Mass/Vol] 3.0 g/dL Low 3.9-4.9 [facility] Comment on above: Order Comment: Speci men Type: BLOOD SPECIMENOrdering Facility: [facility] Address: [address] [place] [address] Performed By: #### 2 4325-3, 3040-3, 29280-2 ####[facility]ATORYCLIA [id number] [address] [place] ALP [Catalytic activity/Vol] 80 U/L Normal 34-123 [facility] Comment on above: Order Comment: Speci men Type: BLOOD SPECIMENOrdering Facility: [facility] Address: [address] [place] [address] Performed By: #### 2 4325-3, 3040-3, 16184-1 ####[facility]ATORYCLIA [id number] [address] [place] ALT With P-5'-P [Catalytic activity/Vol] 19 U/L Normal 7-38 [facility] Comment on above: Order Comment: Speci men Type: BLOOD SPECIMENOrdering Facility: [facility] Address: [address] [place] [address] Performed By: #### 2 4325-3, 3040-3, 90492-4 ####[facility]ATORYCLIA [id number] [address] [place] AST With P-5'-P [Catalytic activity/Vol] 19 U/L Normal 13-35 [facility] Comment on above: Order Comment: Speci men Type: BLOOD SPECIMENOrdering Facility: [facility] Address: [address] [place] [address] Performed By: #### 2 4325-3, 3040-3, 63779-1 ####[facility]ATORYCLIA [id number] [address] [place] Bilirubin [Mass/Vol] 1.2 mg/dL Normal 0.2-1.3 [facility] Comment on above: Order Comment: Speci men Type: BLOOD SPECIMENOrdering Facility: [facility] Address: [address] [place] [address] Performed By: #### 2 4325-3, 3040-3, 36992-7 ####[facility]ATORYCLIA [id number] [address] [place] Bilirubin.conjugated [Mass/Vol] 0.8 mg/dL High <0.3 [facility] Comment on above: Order Comment: Speci men Type: BLOOD SPECIMENOrdering Facility: [facility] Address: [address] [place] [address] Performed By: #### 2 4325-3, 3040-3, 26502-4 ####[facility]ATORYCLIA [id number] [place] [address] [place] Protein [Mass/Vol] 5.9 g/dL Low 6.3-8.0 [facility] Comment on above: Order Comment: Speci men Type: BLOOD SPECIMENOrdering Facility: [facility] Address: [address] [place] [address] Performed By: #### 2 4325-3, 3040-3, 89058-9 ####[facility]ATORYCLIA [id number] [place] [address] [place] Lipase SerPl-cCncon 02-12-20 25 Lipase [Catalytic activity/Vol] 45 U/L Normal 16-61 [facility] Comment on above: Order Comment: Speci men Type: BLOOD SPECIMENOrdering Facility: [facility] Address: [address] [place] [address] Performed By: #### 2 4325-3, 3040-3, 03321-3 ####[facility]ORATORYCLIA [id number] [address] [place] STAPHYLOCOCCUS AUREUS AND MR SA SCREEN, PCR, NASALon 02-11-2025 S. aureus and MRSA panel GUNNER+probe (Nose) Not detected Normal Not Detected [facility] Comment on above: Order Comment: Speci men Type: SWABOrdering Facility: [facility] Address: [address] [place] [address] Performed By: #### S APCR ####[facility]ORATORYCLIA [id number] [address] [place] Bacteria Bld Culton 02-11-20 25 Bacteria identified Cx Nom (Bld) CULTURE, BLOOD: No growth 5 days Normal [facility] Comment on above: Performed By: #### 6 00-7 ####[facility]ATORYCLIA [id number] [address] [place] CBC W Auto Differential pane l (Bld)on 02-10-2025 Basophils (Bld) [#/Vol] 0.00 10*3/uL Normal <0.11 [facility] Comment on above: Order Comment: Speci men Type: BLOOD SPECIMENOrdering Facility: [facility] Address: [address] [place] [address] Performed By: #### 5 7021-8, [id number] ####[facility]ATORYCLIA [id number] [address] [place] Basophils/100 WBC (Bld) 0.0 % Normal [facility] Comment on above: Order Comment: Speci men Type: BLOOD SPECIMENOrdering Facility: [facility] Address: [address] [place] [address] Performed By: #### 5 7021-8, [id number] ####[facility]ORATORYCLIA [id number] [address] STATES [facility] Differential cell count method Nom (Bld) Manual Normal [facility] Comment on above: Order Comment: Speci men Type: BLOOD SPECIMENOrdering Facility: [facility] Address: [address] [place] [address] Performed By: #### 5 7021-8, [id number] ####[facility]ORATORYCLIA [id number] [address] Eosinophils (Bld) [#/Vol] 0.07 10*3/uL Normal <0.46 [facility] Comment on above: Order Comment: Speci men Type: BLOOD SPECIMENOrdering Facility: [facility] Address: [address] [place] [address] Performed By: #### 5 7021-8, [id number] ####[facility]ORATORYCLIA [id number] [address] Eosinophils/100 WBC (Bld) 3.0 % Normal [facility] Comment on above: Order Comment: Speci men Type: BLOOD SPECIMENOrdering Facility: [facility] Address: [address] [place] [address] Performed By: #### 5 7021-8, [id number] ####[facility]ORATORYCLIA [id number] [address] Erythrocyte distribution width (RBC) [Ratio] 13.5 % Normal 11.5-15.0 [facility] Comment on above: Order Comment: Speci men Type: BLOOD SPECIMENOrdering Facility: [facility] Address: [address] [place] [address] Performed By: #### 5 7021-8, [id number] ####[facility]ORATORYCLIA [id number] [address] [place] Hematocrit (Bld) [Volume fraction] 30.0 % Low 36.0-46.0 [facility] Comment on above: Order Comment: Speci men Type: BLOOD SPECIMENOrdering Facility: [facility] Address: [facility] [place] [address] Performed By: #### 5 7021-8, [id number] ####[facility]ORATORYCLIA [id number] [place] [address] [place] Hemoglobin (Bld) [Mass/Vol] 9.9 g/dL Low 11.5-15.5 [facility] Comment on above: Order Comment: Speci men Type: BLOOD SPECIMENOrdering Facility: [facility] Address: [address] [place] [address] Performed By: #### 5 7021-8, [id number] ####[facility]ORATORYCLIA [id number] [address] [place] HYPOGRANULATED PMNS Present Normal [facility] Comment on above: Order Comment: Speci men Type: BLOOD SPECIMENOrdering Facility: [facility] Address: [address] [place] [address] Performed By: #### 5 7021-8, [id number] ####[facility] LABORATORYCLIA [id number] [address] [place] Lymphocytes (Bld) [#/Vol] 0.41 10*3/uL Low 1.00-4.00 [facility] Comment on above: Order Comment: Speci men Type: BLOOD SPECIMENOrdering Facility: [facility] Address: [address] [place] [address] Performed By: #### 5 7021-8, [id number] ####[facility] LABORATORYCLIA [id number] [address] [place] Lymphocytes/100 WBC (Bld) 16.0 % Normal [facility] Comment on above: Order Comment: Speci men Type: BLOOD SPECIMENOrdering Facility: [facility] Address: [address] [place] [address] Performed By: #### 5 7021-8, [id number] ####[facility] LABORATORYCLIA [id number] [place] [address] [place] MCH (RBC) [Entitic mass] 30.6 pg Normal 26.0-34.0 [facility] Comment on above: Order Comment: Speci men Type: BLOOD SPECIMENOrdering Facility: [facility] Address: [address] [place] [address] Performed By: #### 5 7021-8, [id number] ####[place] GENERAL LABORATORYCLIA [id number] [place] [address] [place] MCHC (RBC) [Mass/Vol] 33.0 g/dL Normal 30.5-36.0 [facility] Comment on above: Order Comment: Speci men Type: BLOOD SPECIMENOrdering Facility: [facility] Address: [address] [place] [address] Performed By: #### 5 7021-8, [id number] ####[facility] LABORATORYCLIA [id number] [place] [address] [place] MCV (RBC) [Entitic vol] 92.6 fL Normal 80.0-100.0 [facility] Comment on above: Order Comment: Speci men Type: BLOOD SPECIMENOrdering Facility: [facility] Address: [address] [place] [address] Performed By: #### 5 7021-8, [id number] ####[facility] LABORATORYCLIA [id number] [address] [place] Metamyelocytes/100 WBC (Bld) 2.0 % Normal [facility] Comment on above: Order Comment: Speci men Type: BLOOD SPECIMENOrdering Facility: [facility] Address: [address] [place] [address] Performed By: #### 5 7021-8, [id number] ####[facility] LABORATORYCLIA [id number] [address] [place] Monocytes (Bld) [#/Vol] 0.09 10*3/uL Normal <0.87 [facility] Comment on above: Order Comment: Speci men Type: BLOOD SPECIMENOrdering Facility: [facility] Address: [address] [place] [address] Performed By: #### 5 7021-8, [id number] ####[facility] LABORATORYCLIA [id number] [address] [place] Monocytes/100 WBC (Bld) 4.0 % Normal [facility] Comment on above: Order Comment: Speci men Type: BLOOD SPECIMENOrdering Facility: [facility] Address: [address] [place] [address] Performed By: #### 5 7021-8, [id number] ####[facility] GENERAL LABORATORYCLIA [id number] [place] [address] [place] Neutrophils (Bld) [#/Vol] 1.57 10*3/uL Normal 1.45-7.50 [facility] Comment on above: Order Comment: Speci men Type: BLOOD SPECIMENOrdering Facility: [facility] Address: [address] [place] [address] Performed By: #### 5 7021-8, [id number] ####[facility] LABORATORYCLIA [id number] [address] [place] Neutrophils/100 WBC (Bld) 72.0 % Normal [facility] Comment on above: Order Comment: Speci men Type: BLOOD SPECIMENOrdering Facility: [facility] Address: [address] [place] [address] Performed By: #### 5 7021-8, [id number] ####[facility] LABORATORYCLIA [id number] [place] [address] [place] Nucleated RBC (Bld) [#/Vol] 10*3/uL Normal <0.01 [facility] Comment on above: Order Comment: Speci men Type: BLOOD SPECIMENOrdering Facility: [facility] Address: [address] [place] [address] Performed By: #### 5 7021-8, [id number] ####[facility] LABORATORYCLIA [id number] [address] [place] Nucleated RBC/100 WBC (Bld) [Ratio] 0.0 /100 WBC Normal [facility] Comment on above: Order Comment: Speci men Type: BLOOD SPECIMENOrdering Facility: [facility] Address: [address] [place] [address] Performed By: #### 5 7021-8, [id number] ####[facility] LABORATORYCLIA [id number] [address] [place] Ovalocytes LM Ql (Bld) Few Normal [facility] Comment on above: Order Comment: Speci men Type: BLOOD SPECIMENOrdering Facility: [facility] Address: [address] [place] [address] Performed By: #### 5 7021-8, [id number] ####[facility] LABORATORYCLIA [id number] [address] [place] Platelet mean volume (Bld) [Entitic vol] 12.1 fL Normal 9.0-12.7 [facility] Comment on above: Order Comment: Speci men Type: BLOOD SPECIMENOrdering Facility: [facility] Address: [address] [place] [address] Performed By: #### 5 7021-8, [id number] ####[facility] LABORATORYCLIA [id number] [address] [place] Platelets (Bld) [#/Vol] 126 10*3/uL Low 150-400 [facility] Comment on above: Order Comment: Speci men Type: BLOOD SPECIMENOrdering Facility: [facility] Address: [address] [place] [address] Result Comment: No c lot detected. Performed By: #### 5 7021-8, [id number] ####[facility] LABORATORYCLIA [id number] [address] [place] Platelets Estimate (Bld) [#/Vol] Decreased Normal [facility] Comment on above: Order Comment: Speci men Type: BLOOD SPECIMENOrdering Facility: [facility] Address: [address] [place] [address] Performed By: #### 5 7021-8, [id number] ####[facility] LABORATORYCLIA [id number] [address] Polychromasia LM Ql (Bld) Slight Normal [facility] Comment on above: Order Comment: Speci men Type: BLOOD SPECIMENOrdering Facility: [facility] Address: [address] [place] [address] Performed By: #### 5 7021-8, [id number] ####[facility] LABORATORYCLIA [id number] [place] [address] [place] RBC (Bld) [#/Vol] 3.24 10*6/uL Low 3.90-5.20 [facility] Comment on above: Order Comment: Speci men Type: BLOOD SPECIMENOrdering Facility: [facility] Address: [address] [place] [address] Performed By: #### 5 7021-8, [id number] ####[facility] LABORATORYCLIA [id number] [address] [place] RBC FRAGMENTS Few Abnormal None Seen [facility] Comment on above: Order Comment: Speci men Type: BLOOD SPECIMENOrdering Facility: [facility] Address: [address] [place] [address] Performed By: #### 5 7021-8, [id number] ####[facility] LABORATORYCLIA [id number] [address] RED CELL MORPH Reviewed: see result s of individual morphologies Normal [facility] Comment on above: Order Comment: Speci men Type: BLOOD SPECIMENOrdering Facility: [facility] Address: [address] [place] [address] Performed By: #### 5 7021-8, [id number] ####[facility] LABORATORYCLIA [id number] [address] [place] Present Normal [facility] Comment on above: Order Comment: Speci men Type: BLOOD SPECIMENOrdering Facility: [facility] Address: [address] [place] [address] Performed By: #### 5 7021-8, [id number] ####[facility] LABORATORYCLIA [id number] [address] Variant lymphocytes/100 WBC (Bld) 3.0 % Normal [facility] Comment on above: Order Comment: Speci men Type: BLOOD SPECIMENOrdering Facility: [facility] Address: [address] [place], [place] [address] Performed By: #### 5 7021-8, [id number] ####[facility] LABORATORYCLIA [id number] [address] WBC (Bld) [#/Vol] 2.18 10*3/uL Low 3.70-11.00 [facility] Comment on above: Order Comment: Speci men Type: BLOOD SPECIMENOrdering Facility: [facility] Address: [address] [place] [address] Performed By: #### 5 7021-8, [id number] ####[facility] LABORATORYCLIA [id number] [address] Comprehensive metabolic 2000 panelon 02-10-2025 Albumin [Mass/Vol] 3.5 g/dL Low 3.9-4.9 [facility] Comment on above: Order Comment: Speci men Type: BLOOD SPECIMENOrdering Facility: [facility] Address: [address] [place] [address] Performed By: #### 2 4323-8 ####[facility] LABORATORYCLIA [id number] [address] ALP [Catalytic activity/Vol] 94 U/L Normal 34-123 [facility] Comment on above: Order Comment: Speci men Type: BLOOD SPECIMENOrdering Facility: [facility] Address: [address] [place] [address] Performed By: #### 2 4323-8 ####[facility] LABORATORYCLIA [id number] [address] ALT With P-5'-P [Catalytic activity/Vol] Normal [facility] Comment on above: Order Comment: Speci men Type: BLOOD SPECIMENOrdering Facility: [facility] Address: [address] [place] [address] Result Comment: Unab le to assay due to interference from hemolysis. Suggest reorder as clinically indicated. Performed By: #### 2 4323-8 ####[facility] LABORATORYCLIA [id number] [address] Anion gap [Moles/Vol] 15 mmol/L Normal 8-15 [facility] Comment on above: Order Comment: Speci men Type: BLOOD SPECIMENOrdering Facility: [facility] Address: [address] [place] [address] Performed By: #### 2 4323-8 ####[facility] LABORATORYCLIA [id number] [place] [address] [place] AST With P-5'-P [Catalytic activity/Vol] Normal [facility] Comment on above: Order Comment: Speci men Type: BLOOD SPECIMENOrdering Facility: [facility] Address: [address] [place] [address] Result Comment: Unab le to assay due to interference from hemolysis. Suggest reorder as clinically indicated. Performed By: #### 2 4323-8 ####[facility] LABORATORYCLIA [id number] [address] [place] Bilirubin [Mass/Vol] 1.2 mg/dL Normal 0.2-1.3 [facility] Comment on above: Order Comment: Speci men Type: BLOOD SPECIMENOrdering Facility: [facility] Address: [address] [place] [address] Performed By: #### 2 4323-8 ####[facility] LABORATORYCLIA [id number] [address] [place] Calcium [Mass/Vol] 8.7 mg/dL Normal 8.5-10.2 [facility] Comment on above: Order Comment: Speci men Type: BLOOD SPECIMENOrdering Facility: [facility] Address: [address] [place] [address] Performed By: #### 2 4323-8 ####[facility] LABORATORYCLIA [id number] [address] [place] Chloride [Moles/Vol] 92 mmol/L Low 98-107 [facility] Comment on above: Order Comment: Speci men Type: BLOOD SPECIMENOrdering Facility: [facility] Address: [address] [place] [address] Performed By: #### 2 4323-8 ####[facility] LABORATORYCLIA [id number] [address] STATES [facility] CO2 [Moles/Vol] 16 mmol/L Low 22-30 [facility] Comment on above: Order Comment: Speci men Type: BLOOD SPECIMENOrdering Facility: [facility] Address: [address] [place] [address] Performed By: #### 2 4323-8 ####[facility] LABORATORYCLIA [id number] [address] [place] Creatinine [Mass/Vol] 0.55 mg/dL Low 0.58-0.96 [facility] Comment on above: Order Comment: Speci men Type: BLOOD SPECIMENOrdering Facility: [facility] Address: [address] [place] [address] Performed By: #### 2 4323-8 ####[facility] SYSTEMCLIA [id number] [address] Creatinine and Glomerular filtration rate.predicted panel (S/P/Bld) 91 mL/min/1.73m??? Normal >=60 [facility] Comment on above: Order Comment: Speci men Type: BLOOD SPECIMENOrdering Facility: [facility] Address: [address] [place] [address] Result Comment: Kya mated Glomerular Filtration Rate [...] GFR. Performed By: #### 2 4323-8 ####[facility] LABORATORYCLIA [id number] [address] Glucose [Mass/Vol] 217 mg/dL High 74-99 [facility] Comment on above: Order Comment: Speci men Type: BLOOD SPECIMENOrdering Facility: [facility] Address: [address] [place] [address] Result Comment: The [place] Diabetes Association (ADA) provides guidance for cutoff [...] Standards of Medical Care in Diabetes 2016, [place] [employer]. Diabetes Care. 2016.39(Suppl 1). Performed By: #### 2 4323-8 ####[facility] LABORATORYCLIA [id number] [place] [address] [place] Potassium [Moles/Vol] Normal [facility] Comment on above: Order Comment: Specbertrand stinson Type: BLOOD SPECIMENOrdering Facility: [facility] Address: [address] [place] [address] Result Comment: Unab le to assay due to interference from hemolysis. Suggest reorder as clinically indicated. Performed By: #### 2 4323-8 ####[facility] LABORATORYCLIA [id number] [place] [address] [place] Protein [Mass/Vol] 6.5 g/dL Normal 6.3-8.0 [facility] Comment on above: Order Comment: Dayron stinson Type: BLOOD SPECIMENOrdering Facility: [facility] Address: [address] [place] [address] Performed By: #### 2 4323-8 ####[facility] LABORATORYCLIA [id number] [place] [address] [place] Sodium [Moles/Vol] 123 mmol/L Low 136-144 [facility] Comment on above: Order Comment: Dayron men Type: BLOOD SPECIMENOrdering Facility: [facility] Address: [address] [place] [address] Performed By: #### 2 4323-8 ####[facility] LABORATORYCLIA [id number] [place] [address] [place] Urea nitrogen [Mass/Vol] 9 mg/dL Normal 7- [facility] Comment on above: Order Comment: Speci men Type: BLOOD SPECIMENOrdering Facility: [facility] Address: [address] [place], [place] [address] Performed By: #### 2 4323-8 ####[facility] LABORATORYCLIA [id number] [place] [address] [place] ECG COMPLETEon 02-10-2025 ECG COMPLETE Normal [facility] ED NOTEon 02-10-2025 ED NOTE HNO ID: [id number] Author: AYAZ HOLLOWAY RN Service: ? Author Type: Registered Nurse Type: ED Notes Filed: 02/11/2025 00:44 Note Text: MD Weber at bedside when temp of 99.9f was taken Normal [facility] ED NOTE HNO ID: [id number] Author: AYAZ HOLLOWAY RN Service: ? Author Type: Registered Nurse Type: ED Notes Filed: 02/10/2025 20:41 Note Text: MD notified of need for US IV due to inability to draw blood. Normal [facility] ED NOTE HNO ID: [id number] Author: GARIMA TORO RN Service: ? Author Type: Registered Nurse Type: ED Notes Filed: 02/10/2025 20:27 Note Text: Bed: 20-ED Expected date: Expected time: Means of arrival: Comments: Triage Normal [facility] ED NOTE HNO ID: [id number] Author: JAYLEEN BOB RN Service: Emergency Medicine Author Type: Registered Nurse Type: ED Notes Filed: 02/10/2025 19:35 Note Text: Patient placed in the internal waiting room Normal [facility] ED NOTE HNO ID: [id number] Author: JAYLEEN BOB RN Service: Emergency Medicine [...] AND DIFFERENTIAL (LAB REFLEX ORDER-NO BILL)on 02-10-2025 Chief Mechanical Engineer review Jimenez (Unsp spec) [Interp] Reviewed by Diya Albarran MD Normal [facility] Comment on above: Order Comment: Speci men Type: BLOOD SPECIMENOrdering Facility: [facility] Address: [address] [place] [address] Performed By: #### 5 7021-8, [id number] ####[facility] LABORATORYCLIA [id number] [address] STAFF REVIEW, CBCDIF Normal [facility] Comment on above: Order Comment: Speci men Type: BLOOD SPECIMENOrdering Facility: [facility] Address: [address] [place] [address] Performed By: #### 5 7021-8, [id number] ####[facility] LABORATORYCLIA [id number] [address] POTASSIUMon 02-10-2025 Potassium [Moles/Vol] 4.4 mmol/L Normal 3.7-5.1 [facility] Comment on above: Order Comment: Speci men Type: BLOOD SPECIMENOrdering Facility: [facility] Address: [address] [place] [address] Performed By: #### K 1 ####[facility] LABORATORYCLIA [id number] [address] Urinalysis complete panel (U )on 02-10-2025 Bilirubin Ql (U) Negative Normal Negative [facility] Comment on above: Order Comment: Speci men Type: URINE SPECIMENOrdering Facility: [facility] Address: [address] [place] [address] Performed By: #### 2 4356-8 ####[facility] LABORATORYCLIA [id number] [address] Clarity (Unsp spec) Clear Normal Clear [facility] Comment on above: Order Comment: Speci men Type: URINE SPECIMENOrdering Facility: [facility] Address: [address] [place] [address] Performed By: #### 2 4356-8 ####[facility] LABORATORYCLIA [id number] [address] [place] Color (U) Yellow Normal Yellow [facility] Comment on above: Order Comment: Speci men Type: URINE SPECIMENOrdering Facility: [facility] Address: [address] [place] [address] Performed By: #### 2 4356-8 ####[facility] LABORATORYCLIA [id number] [address] Epithelial cells LM.HPF (Urine sed) [#/Area] Few Normal [facility] Comment on above: Order Comment: Speci men Type: URINE SPECIMENOrdering Facility: [facility] Address: [address] [place] [address] Performed By: #### 2 4356-8 ####[facility] LABORATORYCLIA [id number] [address] [place] Glucose Test strip (U) [Mass/Vol] 2+ Abnormal Negative [facility] Comment on above: Order Comment: Speci men Type: URINE SPECIMENOrdering Facility: [facility] Address: [address] [place] [address] Performed By: #### 2 4356-8 ####[facility] LABORATORYCLIA [id number] [place] [address] [place] Hemoglobin Ql (U) Negative Normal Negative [facility] Comment on above: Order Comment: Speci men Type: URINE SPECIMENOrdering Facility: [facility] Address: [address] [place] [address] Performed By: #### 2 4356-8 ####[facility]ORATORYCLIA [id number] [address] [place] Ketones Ql (U) Negative Normal Negative [facility] Comment on above: Order Comment: Speci men Type: URINE SPECIMENOrdering Facility: [facility] Address: [address] [place] [address] Performed By: #### 2 4356-8 ####[facility] LABORATORYCLIA [id number] [address] Leukocyte esterase Test strip Ql (U) Negative Normal Negative [facility] Comment on above: Order Comment: Speci men Type: URINE SPECIMENOrdering Facility: [facility] Address: [address] [place] [address] Performed By: #### 2 4356-8 ####[facility] LABORATORYCLIA [id number] [address] Nitrite Ql (U) Negative Normal Negative [facility] Comment on above: Order Comment: Speci men Type: URINE SPECIMENOrdering Facility: [facility] Address: [address] [place] [address] Performed By: #### 2 4356-8 ####[facility] LABORATORYCLIA [id number] [address] pH (U) 7.0 [pH] Normal 5.0-8.0 [facility] Comment on above: Order Comment: Speci men Type: URINE SPECIMENOrdering Facility: [facility] Address: [address] [place] [address] Performed By: #### 2 4356-8 ####[facility] LABORATORYCLIA [id number] [address] Protein (U) [Mass/Vol] 1+ Abnormal Negative [facility] Comment on above: Order Comment: Speci men Type: URINE SPECIMENOrdering Facility: [facility] Address: [address] [place] [address] Performed By: #### 2 4356-8 ####[facility] LABORATORYCLIA [id number] [address] RBC LM.HPF (Urine sed) [#/Area] 3-5 /HPF Abnormal 0-3 /HPF [facility] Comment on above: Order Comment: Speci men Type: URINE SPECIMENOrdering Facility: [facility] Address: [address] [place] [address] Performed By: #### 2 4356-8 ####[facility] LABORATORYCLIA [id number] [address] Specific gravity (U) [Rel density] 1.010 Normal 1.005-1.030 [facility] Comment on above: Order Comment: Speci men Type: URINE SPECIMENOrdering Facility: [facility] Address: [address] [place] [address] Performed By: #### 2 4356-8 ####[facility] LABORATORYCLIA [id number] [address] [place] Urobilinogen Ql (U) 0.2 EU/dL Normal 0.2 EU/d L, 1.0 EU/dL [facility] Comment on above: Order Comment: Speci men Type: URINE SPECIMENOrdering Facility: [facility] Address: [address] [place] [address] Performed By: #### 2 4356-8 ####[facility] LABORATORYCLIA [id number] [address] WBC LM.HPF (Urine sed) [#/Area] 0-5 /HPF Normal 0-5 /HPF [facility] Comment on above: Order Comment: Speci men Type: URINE SPECIMENOrdering Facility: [facility] Address: [address] [place] [address] Performed By: #### 2 4356-8 ####[facility] LABORATORYCLIA [id number] [address] [place] XR CHEST 2V FRONTAL/LATon XR CHEST 2V FRONTAL/LAT Normal [facility] CNPClarissa 02-09-2025 IMMANUEL Telephone ([place]) -- TELMA TINEO ([id number]) 1940 F Date Time Provider Department 02/09/25 MARIA ISABEL SILVERIO During your visit today, we recorded the following information about you: Maria Isabel Silverio RN 02/09/2025 12:16 PM Signed Mariel Care Coordination FOLLOW-UP NOTE Patient identified [...] and call back if any further instructions. Mraia Isabel Silverio RN February 09, 2025 Maria [...] - Blood-Glucose Meter,Continuous (FREESTYLE TOLU 3 READER) [facility] [place] Use to check blood sugar at least [...] once daily. - Blood Pressure Test Kit-Large ([employer] ARM BP MONITOR) 1 Each once daily. [...] 05/20/2023 Impaired cognition [R41.89] 05/20/2023 Diagnosed: 05/20/2023 detention current use of anticoagulant therapy *05/20/2023 (more content not included)... [facility] NÉSTORN Telephone ([place]) -- TELMA TINEO ([id number]) 1940 F Date Time Provider Department 02/08/25 JUAN MIGUEL YUSUF During your visit today, we recorded the following information about you: Azra Zuniga LPN 02/08/2025 1:58 PM Addendum 9th . Dental [facility] office states pt. Is scheduled for tooth [...] - Blood-Glucose Meter,Continuous (FREESTYLE TOLU 3 READER) [facility] [place] Use to check blood sugar at least [...] once daily. - Blood Pressure Test Kit-Large ([employer] ARM BP MONITOR) 1 Each once daily. [...] 05/20/2023 Impaired cognition [R41.89] 05/20/2023 Diagnosed: 05/20/2023 detention current use of anticoagulant therapy *05/20/2023 Diagnosed: [...] Encounter Status:Closed by AZRA ZUNIGA on 02/08/25 [facility] Telephone (HEMMARY) -- TELMA TINEO ([id number]) 1940 F Date Time Provider Department 02/08/25 MARIA ISABEL SILVERIO During your visit today, we recorded the following information about you: Maria Isabel Silverio RN 02/08/2025 12:39 PM Signed [facility] Care Coordination FOLLOW-UP NOTE Patient identified [...] for Visit: Care Coordination [3491] Cmt: Follow Up Note Prescriptions as of [...] - Blood-Glucose Meter,Continuous (FREESTYLE TOLU 3 READER) [facility] [place] Use to check blood sugar at least [...] once daily. - Blood Pressure Test Kit-Large ([employer] ARM BP MONITOR) 1 Each once daily. 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 Normal [facility] CBC W Auto Differential pane l (Bld)on 02-05-2025 Basophils (Bld) [#/Vol] 10*3/uL Normal <0.11 [facility] Comment on above: Order Comment: Speci men Type: BLOOD SPECIMEN [facility] Address: [address] [place] [address] Performed By: #### 5 7021-8 #### [facility] CLIA [id number] [address] [place] [address] [place] Basophils/100 WBC (Bld) 0.5 % Normal [facility] Comment on above: Order Comment: Speci men Type: BLOOD SPECIMEN [facility] Address: [address] [place] [address] Performed By: #### 5 7021-8 #### [facility] CLIA [id number] [place] [address] [place] Differential cell count method Nom (Bld) Auto Normal [facility] Comment on above: Order Comment: Speci men Type: BLOOD SPECIMEN Ordering Facility: [facility] Address: [address] [place] [address] Performed By: #### 5 7021-8 #### [facility] CLIA [id number] [address] [place] [address] [place] Eosinophils (Bld) [#/Vol] 0.10 10*3/uL Normal <0.46 [facility] Comment on above: Order Comment: Speci men Type: BLOOD SPECIMEN Ordering Facility: [facility] Address: [address] [place] [address] Performed By: #### 5 7021-8 #### [facility] CLIA [id number] [address] [place] [address] [place] Eosinophils/100 WBC (Bld) 2.4 % Normal [facility] Comment on above: Order Comment: Speci men Type: BLOOD SPECIMEN Ordering Facility: [facility] Address: [address] [place] [address] Performed By: #### 5 7021-8 #### [facility] CLIA [id number] [address] [place] [address] [place] Erythrocyte distribution width (RBC) [Ratio] 14.2 % Normal 11.5-15.0 [facility] Comment on above: Order Comment: Speci men Type: BLOOD SPECIMEN Ordering Facility: [facility] Address: [address] [place] [address] Performed By: #### 5 7021-8 #### [facility] CLIA [id number] [address] [place] [address] [place] Hematocrit (Bld) [Volume fraction] 28.5 % Low 36.0-46.0 [facility] Comment on above: Order Comment: Speci men Type: BLOOD SPECIMEN Ordering Facility: [facility] Address: [address] [place] [address] Performed By: #### 5 7021-8 #### [id number] [address] [place] [address] [place] Hemoglobin (Bld) [Mass/Vol] 9.6 g/dL Low 11.5-15.5 [facility] Comment on above: Order Comment: Speci men Type: BLOOD SPECIMEN Ordering Facility: [facility] Address: [address] [place] [address] Performed By: #### 5 7021-8 #### [facility] CLIA [id number] [address] [place] [address] [place] Immature granulocytes (Bld) [#/Vol] 10*3/uL Normal <0.10 [facility] Comment on above: Order Comment: Speci men Type: BLOOD SPECIMEN Ordering Facility: [facility] Address: [address] [place] [address] Performed By: #### 5 7021-8 #### [facility] [id number] [address] [place] [address] [place] Immature granulocytes/100 WBC (Bld) 0.5 % Normal [facility] Comment on above: Order Comment: Speci men Type: BLOOD SPECIMEN Ordering Facility: [facility] Address: [address] [place] [address] [place] [address] Performed By: #### 5 7021-8 #### [facility] CLIA [id number] [address] [place] [address] [place] Lymphocytes (Bld) [#/Vol] 0.71 10*3/uL Low 1.00-4.00 [facility] Comment on above: Order Comment: Speci men Type: BLOOD SPECIMEN Ordering Facility: [facility] Address: [address] [place] [address] Performed By: #### 5 7021-8 #### [facility] CLIA [id number] [address] [place] [address] [place] Lymphocytes/100 WBC (Bld) 17.0 % Normal [facility] Comment on above: Order Comment: Speci men Type: BLOOD SPECIMEN Ordering Facility: [facility] Address: [address] [place] [address] Performed By: #### 5 7021-8 #### [facility] CLIA [id number] [address] [place] [address] [place] MCH (RBC) [Entitic mass] 31.2 pg Normal 26.0-34.0 [facility] Comment on above: Order Comment: Speci men Type: BLOOD SPECIMEN Ordering Facility: [facility] Address: [address] [place] [address] Performed By: #### 5 7021-8 #### [facility] CLIA [id number] [address] [place] [address] [place] MCHC (RBC) [Mass/Vol] 33.7 g/dL Normal 30.5-36.0 [facility] Comment on above: Order Comment: Speci men Type: BLOOD SPECIMEN Ordering Facility: [facility] Address: [address] [place] [address] Performed By: #### 5 7021-8 #### [facility] CLIA [id number] [address] [place] [address] [place] MCV (RBC) [Entitic vol] 92.5 fL Normal 80.0-100.0 [facility] Comment on above: Order Comment: Speci men Type: BLOOD SPECIMEN Ordering Facility: [facility] Address: [address] [place] [address] Performed By: #### 5 7021-8 #### [facility] CLIA [id number] [address] [place] [address] [place] Monocytes (Bld) [#/Vol] 0.35 10*3/uL Normal <0.87 [facility] Comment on above: Order Comment: Speci men Type: BLOOD SPECIMEN Ordering Facility: [facility] Address: [address] [place] [address] Performed By: #### 5 7021-8 #### [facility] CLIA [id number] [address] [place] [address] [place] Monocytes/100 WBC (Bld) 8.4 % Normal [facility] Comment on above: Order Comment: Speci men Type: BLOOD SPECIMEN Ordering Facility: [facility] Address: [address] [place] [address] Performed By: #### 5 7021-8 #### [facility] CLIA [id number] [address] [place] [address] [place] Neutrophils (Bld) [#/Vol] 2.98 10*3/uL Normal 1.45-7.50 [facility] Comment on above: Order Comment: Speci men Type: BLOOD SPECIMEN Ordering Facility: [facility] Address: [address] [place] [address] Performed By: #### 5 7021-8 #### [facility] CLIA [id number] [address] [place] [address] [place] Neutrophils/100 WBC (Bld) 71.2 % Normal [facility] Comment on above: Order Comment: Speci men Type: BLOOD SPECIMEN Ordering Facility: [facility] Address: [address] [place] [address] Performed By: #### 5 7021-8 #### [facility] CLIA [id number] [address] [place] [address] [place] Nucleated RBC (Bld) [#/Vol] 10*3/uL Normal <0.01 [facility] Comment on above: Order Comment: Speci men Type: BLOOD SPECIMEN Ordering Facility: [facility] Address: [address] [place], [place] [address] Performed By: #### 5 7021-8 #### [facility] CLIA [id number] [address] [place] [address] [place] Nucleated RBC/100 WBC (Bld) [Ratio] 0.0 /100 WBC Normal [facility] Comment on above: Order Comment: Speci men Type: BLOOD SPECIMEN Ordering Facility: [facility] Address: [address] [place] [address] Performed By: #### 5 7021-8 #### [facility] CLIA [id number] [address] [place] [address] [place] Platelet mean volume (Bld) [Entitic vol] 12.2 fL Normal 9.0-12.7 [facility] Comment on above: Order Comment: Speci men Type: BLOOD SPECIMEN Ordering Facility: [facility] Address: [address] [place] [address] Performed By: #### 5 7021-8 #### [facility] CLIA [id number] [address] [place] [address] [place] Platelets (Bld) [#/Vol] 131 10*3/uL Low 150-400 [facility] Comment on above: Order Comment: Speci men Type: BLOOD SPECIMEN Ordering Facility: [facility] Address: [address] [place] [address] Performed By: #### 5 7021-8 #### [facility] CLIA [id number] [address] [place] [address] [place] RBC (Bld) [#/Vol] 3.08 10*6/uL Low 3.90-5.20 [facility] Comment on above: Order Comment: Speci men Type: BLOOD SPECIMEN Ordering Facility: [facility] Address: [address] [place] [address] Performed By: #### 5 7021-8 #### [facility] CLIA [id number] [address] [place] [address] [place] WBC (Bld) [#/Vol] 4.18 10*3/uL Normal 3.70-11.00 [facility] Comment on above: Order Comment: Speci men Type: BLOOD SPECIMEN Ordering Facility: [facility] Address: [address] [place] [address] Performed By: #### 5 7021-8 #### [facility] CLIA [id number] [address] [place] [address] [place] CNPClarissa 02-05-2025 IMMANUEL Telephone ([facility]) -- TINEOTELMA Currie ([id number]) 1940 F Date Time Provider Department 02/05/25 JUAN MIGUEL YUSUF During your visit today, we recorded the following information about you: Nat Clifford, MAGNUS 02/05/2025 10:40 AM Signed [id number] Gemzar/Abraxane Pt [...] Yusuf called in Z morgan for pt. Yelitaz Hopper LPN 02/05/2025 1:12 PM Signed Yelitza [...] - Blood-Glucose Meter,Continuous (FREESTYLE TOLU 3 READER) [facility] Use to check blood sugar at least [...] once daily. - Blood Pressure Test Kit-Large ([employer] ARM BP MONITOR) 1 Each once daily. [...] 05/20/2023 Hyperlipi (more content not included)... Normal [facility] -- TELMA TINEO ([id number]) 1940 F Date Time Provider Department 02/05/25 HENOK MARTINEZ [facility] During your visit today, we recorded the [...] Person calling: son: Timothy Call patient at: [phone] (home) [phone] (cell) Was an appointment scheduled: No. She [...] Fully Assessed Reason for Visit: Patient Question [4957] Cmt: cough Prescriptions as of 02/05/2025 - [...] - Blood-Glucose Meter,Continuous (FREESTYLE TOLU 3 READER) [facility] Use to check blood sugar at least [...] once daily. - Blood Pressure Test Kit-Large ([employer] ARM BP MONITOR) 1 Each once daily. [...] 05/20/2023 Impaired cognition [R41.89] 05/20/2023 Diagnosed: 05/20/2023 detention current use of anticoagulant therapy *05/20/2023 Diagnosed: 05/20/2023 Neck pain [M54.2] 05/20/2023 05/20/2023 Diagnosed: 05/20/2023 Cerebrovascular accident (CVA) (HCC) [I63.9] 05/20/2023 Diagnosed: 05/20/2023 Jaundice [R17] 01/15/2025 Pancreatic mass [K86.89] (more content not included)... Normal [facility] Telephone ([facility]) -- TELMA TINEO ([id number]) 1940 F Date Time Provider Department 02/05/25 [...] Father is Child/Children: Yes. How many? 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 No Financial Distress: No Ruffin: No FOOD INSECURITY Within the past year, [...] EPIC: No Health Care Durable Power of Health Sciences Program Coordinator: No and provided Living Will information for [...] but would be interested in completing them. SAM explained [place] decision making and provided pt [...] Place a (more content not included)... [facility] TELMA TINE[facility] ([id number]) 1940 F Date Time Provider Department 02/05/25 ADDISON HOLLEY During your visit today, we recorded the following information about you: Addison Hloley LISW 02/05/2025 11:59 AM Signed SOCIAL WORK [...] advantage of support groups, either through [facility] [place], [place], or [facility]. He reports he needs an outlet and was appreciate for time to speak with SW this date. SAM utilized active listening, empathy, and support. Timothy [...] Trembling Date Reviewed: 02/05/2025 Reviewed by: Nat Clifford RN - Fully Assessed Reason for Visit: [...] - Blood-Glucose Meter,Continuous (FREESTYLE TOLU 3 READER) [facility] Use to check blood sugar at least [...] once daily. - Blood Pressure Test Kit-Large ([employer] ARM BP MONITOR) 1 Each once daily. 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 Normal [facility] XR CHEST 2V FRONTAL/LATon XR CHEST 2V [...] with pneumonia. Follow-up to document resolution recommended Seam Steamer: AMBER Transcribe Date/Time: Feb 05 2025 12:27P Dictated by : VELASQUEZ BENTON MD This examination was interpreted and the report reviewed and electronically signed by: VELASQUEZ BENTON MD on Feb 05 2025 12:29PM EST [id number] Normal [facility] XR Chest PA and Lateralon IMPRESSION: New airspace disease in the left lower lobe is consistent with pneumonia. Follow-up to document resolution recommended Seam Steamer: [facility] Transcribe Date/Time: Feb 05 2025 12:27P Dictated [...] soft tissues: Unremarkable. DIVISION OF RADIOLOGY Provider, Aisha Gordillo - 02/05/2025 * * *Final Report* * [...] with pneumonia. Follow-up to document resolution recommended Seam Steamer: PSCB Transcribe Date/Time: Feb 05 2025 12:27P Dictated by : VELASQUEZ BENTON MD This examination was interpreted and the report reviewed and electronically signed by: VELASQUEZ BENTON MD on Feb 05 2025 12:29PM EST [facility] Radiology Study observation (narrative) [facility] XR Chest PA and LateralOrder ed By: [facility] Provider on 02-05-2025 [facility] CNOVon 02-04-2025 CNOV Normal [facility] CNPNon 02-04-2025 CNPN Telephone ([facility]) -- TELMA TINEO ([id number]) 1940 F Date Time Provider Department 02/04/25 MARIA ISABEL SILVERIO During your visit today, we recorded the following information about you: Maria Isabel Silverio RN 02/04/2025 11:19 AM Signed Call for update on patient. Spoke with Timothy, they are at f/u with Dr. Nguyễn. He will call back at a later time. MAGNUS Amos Cathleen, MAGNUS 02/05/2025 8:59 AM Signed No return phone [...] Fully Assessed Reason for Visit: Care Coordination [4732] Cmt: Follow up Note Prescriptions as of [...] once daily. - Blood Pressure Test Kit-Large ([employer] ARM BP MONITOR) 1 Each once daily. [...] 05/20/2023 Impaired cognition [R41.89] 05/20/2023 Diagnosed: 05/20/2023 detention current use of anticoagulant therapy *05/20/2023 Diagnosed: [...] Status:Closed by MARIA ISABEL SILVERIO on 02/05/25 [facility] CNPClarissa 02-03-2025 CNPN Telephone ([facility]) -- TELMA TINEO ([id number]) 1940 F Date Time Provider Department 02/03/25 FINANCIAL NAVIGATOR VIRAJ MARR During your visit today, we recorded the following information about you: Nakul Bliss 02/03/2025 12:25 PM Signed 1st time treatment report. Spoke with patient's son, Timothy, and explained that the patient has Medicare A and B as well as [facility] Medicaid so she is covered at 100%. Told him to call me periodically to see if any assistance opens up for her pancreatic cancer. Sent Cost [employer]it to patient's mychart. Diagnosis: Pancreatic Cancer - C25.0...01/19/25 Doctor: Juan Miguel Yusuf MD...[id number] Allergies As of Date: 02/03/2025 Noted Allergy Reaction PENICILLINS 09/14/2021 10 - Anaphylaxis TETRACYCLINE 09/14/2021 2 - Rash TRAMADOL 07/01/2024 5 - Intolerance Comments: Trembling Date Reviewed: 02/01/2025 Reviewed by: Shabnam Ruiz LPN - Fully Assessed Reason for Visit: Benefits Investigation [8248] Prescriptions as of 02/03/2025 - insulin NPH-insulin [...] - Blood-Glucose Meter,Continuous (FREESTYLE TOLU 3 READER) [facility] Use to check blood sugar at least [...] once daily. - Blood Pressure Test Kit-Large ([employer] ARM BP MONITOR) 1 Each once daily. 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 Admitted to [facility] and then transferred to [facility]. Admission Information ADMIT DATE: 01/14/2025 DISCHARGE DATE: 01/23/2025 REASON I WAS IN THE HOSPITAL: Uncontrolled diabetes, melena(GI bleed), pancreatic adenocarcinoma, obstructive jaundice, duodenal ulcer SUMMARY OF WHAT HAPPENED WHILE I WAS IN THE HOSPITAL: The patient is a pleasant 84-year-old female with history of A-fib on Eliquis and type 2 diabetes presented from [place] with pancreatic mass. 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 Normal [facility] CNPNon 01-29-2025 CNPN Telephone ([facility]) -- TELMA TINEO ([id number]) 1940 F Date Time Provider Department 01/29/25 [...] her mother. Print out of offices by [facility] that accept Medicaid provided to pt's daughter. A few additional resources in [facility] provided as well. SAM and pt also discussed how pt is [...] - Blood-Glucose Meter,Continuous (FREESTYLE TOLU 3 READER) [facility] Use to check blood sugar at least [...] once daily. - Blood Pressure Test Kit-Large ([employer] ARM BP MONITOR) 1 Each once daily. [...] 07/01/2024 Diagnosed: more content not included)... Normal [facility] IMMANUEL Telephone ([facility]) -- TELMA TINEO ([id number]) 1940 F Date Time Provider Department 01/29/25 MARIA ISABEL SILVERIO During your visit today, we recorded the following information about you: Maria Isabel Silverio, MAGNUS 01/29/2025 10:32 AM Signed CYCLE 1/DAY 1 POST TREATMENT CALL Today's date: January 29, 2025 Treatment Regimen: Gemzar/Abraxane C1D1 Date: 01/28/25 Call to patient, message left to call me back and phone/contact number provided. Maria Isabel Silverio RN [facility] 01/29/2025 10:39 AM Signed Son returned call. Care coord went to [facility]. Maria Isabel Silverio RN 01/29/2025 11:54 AM [...] awhile. He has called a place in [place] and waiting to hear back from them [...] 01/29/2025 11:54 AM Signed Attempted to call [facility] to inquire first availability. That department is closed on Saturday, will try again on Saturday. MAGNUS Amos Cathleen, MAGNUS 02/01/2025 11:46 AM Signed Call to [facility]. Was able to leave with question along with my contact information for them to return call. Elaina Silverio, Maria Isabel Montoya RN 02/01/2025 1:52 PM Signed [facility] returned call and next [...] Fully Assessed Reason for Visit: Care Coordination [3757] Prescriptions as of 02/04/2025 - insulin NPH-insulin [...] - Blood-Glucose Meter,Continuous (FREESTYLE TOLU 3 READER) [facility] Use to check blood sugar at least [...] tablet Take (more content not included)... Normal [facility] Telephone (FAMPWS) -- TELMA TINEO ([id number]) 1940 F Date Time Provider Department 01/29/25 HENOK MARTINEZ [facility] During your visit today, we recorded the following information about you: Danielle Modi 01/29/2025 12:11 PM Signed Timothy is calling Henok Martinez MD today to request a new glucometer, test, strips, and lancets. Patient has a freestyle tolu, but it is malfunctioning and they will not get a replacement for at least 10 days. Please send to [facility] in [place] Patient has been identified by name and birthdate. Duration of symptoms: Person calling: son: Timothy Call patient at: at home [phone] (home) [phone] (cell) Was an appointment scheduled: No Closing [...] - Blood-Glucose Meter,Continuous (FREESTYLE TOLU 3 READER) [facility] Use to check blood sugar at least [...] once daily. - Blood Pressure Test Kit-Large ([employer] ARM BP MONITOR) 1 Each once daily. 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 Normal [facility] CBC W Auto Differential pane l (Bld)on 01-28-2025 Basophils (Bld) [#/Vol] 0.04 10*3/uL Normal <0.11 [facility] Comment on above: Order Comment: Speci men Type: BLOOD SPECIMEN Ordering Facility: [facility] Address: [facility] [place] [address] Performed By: #### 5 7021-8 #### [facility] CLIA [id number] [address] [place] [address] [place] Basophils/100 WBC (Bld) 0.4 % Normal [facility] Comment on above: Order Comment: Speci men Type: BLOOD SPECIMEN Ordering Facility: [facility] Address: [address] [place] [address] Performed By: #### 5 7021-8 #### [facility] CLIA [id number] [address] [place] [address] [place] Differential cell count method Nom (Bld) Auto Normal [facility] Comment on above: Order Comment: Speci men Type: BLOOD SPECIMEN Ordering Facility[facility] Address: [address] [place] [address] Performed By: #### 5 7021-8 #### [facility] CLIA [id number] [address] [place] [address] [place] Eosinophils (Bld) [#/Vol] 0.16 10*3/uL Normal <0.46 [facility] Comment on above: Order Comment: Speci men Type: BLOOD SPECIMEN Ordering Facility: [facility] Address: [address] [place] [address] Performed By: #### 5 7021-8 #### [facility] CLIA [id number] [address] [place] [address] [place] Eosinophils/100 WBC (Bld) 1.7 % Normal [facility] Comment on above: Order Comment: Speci men Type: BLOOD SPECIMEN Ordering Facility: [facility] Address: [address] [place] [address] Performed By: #### 5 7021-8 #### [facility] CLIA [id number] [address] [place] [address] [place] Erythrocyte distribution width (RBC) [Ratio] 15.1 % High 11.5-15.0 [facility] Comment on above: Order Comment: Speci men Type: BLOOD SPECIMEN Ordering Facility: [facility] Address: [address] [place] [address] Performed By: #### 5 7021-8 #### [facility] CLIA [id number] [address] [place] [address] [place] Hematocrit (Bld) [Volume fraction] 32.3 % Low 36.0-46.0 [facility] Comment on above: Order Comment: Speci men Type: BLOOD SPECIMEN Ordering Facility: [facility] Address: [address] [place] [address] Performed By: #### 5 7021-8 #### [facility] CLIA [id number] [address] [place] [address] [place] Hemoglobin (Bld) [Mass/Vol] 10.6 g/dL Low 11.5-15.5 [facility] Comment on above: Order Comment: Speci men Type: BLOOD SPECIMEN Ordering Facility: [facility] Address: [address] [place] [address] Performed By: #### 5 7021-8 #### [facility] CLIA [id number] [address] [place] [place] [address] [place] Immature granulocytes (Bld) [#/Vol] 0.04 10*3/uL Normal <0.10 [facility] Comment on above: Order Comment: Speci men Type: BLOOD SPECIMEN Ordering Facility: [facility] Address: [address] [place] [address] Performed By: #### 5 7021-8 #### [facility] CLIA [id number] [address] [place] [address] [place] Immature granulocytes/100 WBC (Bld) 0.4 % Normal [facility] Comment on above: Order Comment: Speci men Type: BLOOD SPECIMEN Ordering Facility: [facility] Address: [address] [place] [address] Performed By: #### 5 7021-8 #### [facility] CLIA [id number] [address] [place] [address] [place] Lymphocytes (Bld) [#/Vol] 1.21 10*3/uL Normal 1.00-4.00 [facility] Comment on above: Order Comment: Speci men Type: BLOOD SPECIMEN Ordering Facility: [facility] Address: [address] [place] [address] Performed By: #### 5 7021-8 #### [id number] [address] [place] [address] [place] Lymphocytes/100 WBC (Bld) 12.8 % Normal [facility] Comment on above: Order Comment: Speci men Type: BLOOD SPECIMEN Ordering Facility: [facility] Address: [address] [place] [address] Performed By: #### 5 7021-8 #### [facility] [id number] [address] [place] [address] [place] MCH (RBC) [Entitic mass] 30.7 pg Normal 26.0-34.0 [facility] Comment on above: Order Comment: Speci men Type: BLOOD SPECIMEN Ordering Facility: [facility] Address: [address] [place] [address] Performed By: #### 5 7021-8 #### [facility] [id number] [address] [place] [address] [place] MCHC (RBC) [Mass/Vol] 32.8 g/dL Normal 30.5-36.0 [facility] Comment on above: Order Comment: Speci men Type: BLOOD SPECIMEN Ordering Facility: [facility] Address: [address] [place] [address] Performed By: #### 5 7021-8 #### [facility] CLIA [id number] [address] [place] [address] [place] MCV (RBC) [Entitic vol] 93.6 fL Normal 80.0-100.0 [facility] Comment on above: Order Comment: Speci men Type: BLOOD SPECIMEN Ordering Facility: [facility] Address: [address] [place] [address] Performed By: #### 5 7021-8 #### [facility] CLIA [id number] [address] [place] [address] [place] Monocytes (Bld) [#/Vol] 1.09 10*3/uL High <0.87 [facility] Comment on above: Order Comment: Speci men Type: BLOOD SPECIMEN Ordering Facility: [facility] Address: [address] [place] [address] Performed By: #### 5 7021-8 #### [facility] CLIA [id number] [address] [place] [address] [place] Monocytes/100 WBC (Bld) 11.5 % Normal [facility] Comment on above: Order Comment: Speci men Type: BLOOD SPECIMEN Ordering Facility: [facility] Address: [address] [place] [address] Performed By: #### 5 7021-8 #### [facility] CLIA [id number] [address] [place] [address] [place] Neutrophils (Bld) [#/Vol] 6.94 10*3/uL Normal 1.45-7.50 [facility] Comment on above: Order Comment: Speci men Type: BLOOD SPECIMEN Ordering Facility: [facility] Address: [address] [place] [address] Performed By: #### 5 7021-8 #### [facility] CLIA [id number] [address] [place] [address] [place] Neutrophils/100 WBC (Bld) 73.2 % Normal [facility] Comment on above: Order Comment: Speci men Type: BLOOD SPECIMEN Ordering Facility: [facility] Address: [address] [place] [address] Performed By: #### 5 7021-8 #### [facility] CLIA [id number] [address] [place] [address] [place] Nucleated RBC (Bld) [#/Vol] 10*3/uL Normal <0.01 [facility] Comment on above: Order Comment: Speci men Type: BLOOD SPECIMEN Ordering Facility: [facility] Address: [address] [place] [address] Performed By: #### 5 7021-8 #### [facility] CLIA [id number] [address] [place] [address] [place] Nucleated RBC/100 WBC (Bld) [Ratio] 0.0 /100 WBC Normal [facility] Comment on above: Order Comment: Speci men Type: BLOOD SPECIMEN Ordering Facility: [facility] Address: [address] [place] [address] Performed By: #### 5 7021-8 #### [facility] CLIA [id number] [address] [place] [address] [place] Platelet mean volume (Bld) [Entitic vol] 12.4 fL Normal 9.0-12.7 [facility] Comment on above: Order Comment: Speci men Type: BLOOD SPECIMEN Ordering Facility: [facility] Address: [address] [place] [address] Performed By: #### 5 7021-8 #### [facility] CLIA [id number] [address] [place] [address] [place] Platelets (Bld) [#/Vol] 310 10*3/uL Normal 150-400 [facility] Comment on above: Order Comment: Speci men Type: BLOOD SPECIMEN Ordering Facility: [facility] Address: [address] [place] [address] Performed By: #### 5 7021-8 #### [facility] CLIA [id number] [address] [place] [address] [place] RBC (Bld) [#/Vol] 3.45 10*6/uL Low 3.90-5.20 [facility] Comment on above: Order Comment: Speci men Type: BLOOD SPECIMEN Ordering Facility: [facility] Address: [address] [place] [address] Performed By: #### 5 7021-8 #### [facility] CLIA [id number] [address] [place] [address] [place] WBC (Bld) [#/Vol] 9.48 10*3/uL Normal 3.70-11.00 [facility] Comment on above: Order Comment: Speci men Type: BLOOD SPECIMEN Ordering Facility: [facility] Address: [address] [place] [address] Performed By: #### 5 7021-8 #### [facility] [id number] [address] [place] [address] [place] C[facility]Non [facility] TELMA [facility]INE[facility] ([id number]) 1940 F Date Time Provider Department 01/28/25 ADDISON HOLLEY During your visit today, we recorded the following information about you: Addison Holley LISW 01/28/2025 3:10 PM Signed SOCIAL WORK FOLLOW UP NOTE: [facility] Date of service: January 28, 2025 Telma Tineo is being seen for a follow up social work visit. Today's visit includes: sonTimothy TOPICS ADDRESSED: SW spoke with pt's son, Timothy, this date. SW referred to pt by [facility] d/t needing dental services however having difficulty finding a provider who will accept pt's Medicaid insurance. SW recommended [facility] to pt's son. He reports pt does have an appointment there but that it's not for a while and they were wondering about getting her in somewhere sooner d/t risk of infection while receiving treatment. SW also recommended [facility]. Son reports they have attempted to schedule with them but they will not take Medicaid. Son reports that he will continue looking and is willing to travel to [place] or [place] with pt if needed. Sw to explore [...] Yes KANDACE Ferguson Allergies As of Date: 01/28/2025 Noted Allergy [...] once daily. - Blood Pressure Test Kit-Large ([employer] ARM BP MONITOR) 1 Each once daily. [...] 05/20/2023 Impaired cognition [R41.89] 05/20/2023 Diagnosed: 05/20/2023 detention current use of anticoagulant therapy (more content not included)... Normal [facility] Comprehensive metabolic 2000 panelon 01-28-2025 Albumin [Mass/Vol] 3.7 g/dL Low 3.9-4.9 [facility] Comment on above: Order Comment: Specbertrand stinson Type: BLOOD SPECIMEN Ordering Facility: [facility] Address: [address] [place] [address] Performed By: #### 5 7021-8 #### [facility] [id number] [address] [place] [address] [place] ALP [Catalytic activity/Vol] 148 U/L High 34-123 [facility] Comment on above: Order Comment: Dayron stinsno Type: BLOOD SPECIMEN Ordering Facility: [facility] Address: [address] [place] [address] Performed By: #### 5 7021-8 #### [facility] CLIA [id number] [address] [place] [address] [place] ALT With P-5'-P [Catalytic activity/Vol] 28 U/L Normal 7-38 [facility] Comment on above: Order Comment: Dayron stinson Type: BLOOD SPECIMEN Ordering Facility: [facility] Address: [address] [place] [address] Performed By: #### 5 7021-8 #### [facility] CLIA [id number] [address] [place] [address] [place] Anion gap [Moles/Vol] 13 mmol/L Normal 8-15 [facility] Comment on above: Order Comment: Speci men Type: BLOOD SPECIMEN Ordering Facility: [facility] Address: [address] [place] [address] Performed By: #### 5 7021-8 #### [facility] CLIA [id number] [address] [place] [address] [place] AST With P-5'-P [Catalytic activity/Vol] 26 U/L Normal 13-35 [facility] Comment on above: Order Comment: Speci men Type: BLOOD SPECIMEN Ordering Facility: [facility] Address: [address] [place], [place] [address] Performed By: #### 5 7021-8 #### [facility] CLIA [id number] [address] [place] [address] [place] Bilirubin [Mass/Vol] 2.1 mg/dL High 0.2-1.3 [facility] Comment on above: Order Comment: Speci men Type: BLOOD SPECIMEN Ordering Facility: [facility] Address: [address] [place] [address] Performed By: #### 5 7021-8 #### [facility] CLIA [id number] [address] [place] [address] [place] Calcium [Mass/Vol] 9.4 mg/dL Normal 8.5-10.2 [facility] Comment on above: Order Comment: Speci men Type: BLOOD SPECIMEN Ordering Facility: [facility] Address: [address] [place] [address] Performed By: #### 5 7021-8 #### [facility] CLIA [id number] [address] [place] [address] [place] Chloride [Moles/Vol] 97 mmol/L Low 98-107 [facility] Comment on above: Order Comment: Speci men Type: BLOOD SPECIMEN Ordering Facility: [facility] Address: [address] [place], [place] [address] Performed By: #### 5 7021-8 #### [facility] [id number] [address] [place] [address] [place] CO2 [Moles/Vol] 21 mmol/L Low 22-30 [facility] Comment on above: Order Comment: Speci men Type: BLOOD SPECIMEN Ordering Facility: [facility] Address: [address] [place] [address] Performed By: #### 5 7021-8 #### [facility] [id number] [address] [place] [address] [place] Creatinine [Mass/Vol] 0.69 mg/dL Normal 0.58-0.96 [facility] Comment on above: Order Comment: Speci men Type: BLOOD SPECIMEN Ordering Facility: [facility] Address: [address] [place] [address] Performed By: #### 5 7021-8 #### [facility] [id number] [address] [place] [address] [place] Creatinine and Glomerular filtration rate.predicted panel (S/P/Bld) 86 mL/min/1.73m??? Normal >=60 [facility] Comment on above: Order Comment: Speci men Type: BLOOD SPECIMEN Ordering Facility: [facility] Address: [address] [place] [address] Result Comment: Kya mated Glomerular Filtration Rate [...] GFR. Performed By: #### 5 7021-8 #### [facility] CLIA [id number] [address] [place] [address] [place] Glucose [Mass/Vol] 358 mg/dL High 74-99 [facility] Comment on above: Order Comment: Dayron stinson Type: BLOOD SPECIMEN Ordering Facility: [facility] Address: [address] [place] [address] Result Comment: The [place] Diabetes Association (ADA) provides guidance for cutoff [...] Standards of Medical Care in Diabetes 2016, [place] [employer]. Diabetes Care. 2016.39(Suppl 1). Performed By: #### 5 7021-8 #### [facility] [id number] [address] [place] [address] [place] Potassium [Moles/Vol] 4.3 mmol/L Normal 3.7-5.1 [facility] Comment on above: Order Comment: Dayron stinson Type: BLOOD SPECIMEN Ordering Facility: [facility] Address: [address] [place] [address] Performed By: #### 5 7021-8 #### [facility] CLIA [id number] [address] [place] [address] [place] Protein [Mass/Vol] 6.6 g/dL Normal 6.3-8.0 [facility] Comment on above: Order Comment: Dayron stinson Type: BLOOD SPECIMEN Ordering Facility: [facility] Address: [address] [place], [place] [address] Performed By: #### 5 7021-8 #### [facility] CLIA [id number] [address] [place] [address] [place] Sodium [Moles/Vol] 131 mmol/L Low 136-144 [facility] Comment on above: Order Comment: Speci men Type: BLOOD SPECIMEN Ordering Facility: [facility] Address: [address] [place] [address] Performed By: #### 5 7021-8 #### [facility] CLIA [id number] [address] [place] [address] [place] Urea nitrogen [Mass/Vol] 15 mg/dL Normal 7-21 [facility] Comment on above: Order Comment: Speci men Type: BLOOD SPECIMEN Ordering Facility: [facility] Address: [address] [place] [address] Performed By: #### 5 7021-8 #### [facility] CLIA [id number] [address] [place] [address] [place] ANES POSTPROC EVALon 025 ANES POSTPROC EVAL Normal [facility] CNPNon 01-26-2025 [facility] -- TELMA TINEO ([id number]) 1940 F Date Time Provider Department 01/26/25 [facility] During your visit today, we recorded [...] 01/26/2025 10:49 AM Signed Henok Martinez MD [facility] Michelle Pool2 minutes ago (10:40 AM) Any [...] 01/26/2025 10:59 AM Signed Henok Martinez MD [facility] Hoberg Pool4 minutes ago (10:52 AM) Try miralax [...] - Blood-Glucose Meter,Continuous (FREESTYLE TOLU 3 READER) [facility] Use to check blood sugar at least [...] once daily. - Blood Pressure Test Kit-Large ([employer] ARM BP MONITOR) 1 Each once daily. [...] 05/20/2023 Impaired cognition [R41.89] 05/20/2023 Diagnosed: 05/20/2023 detention current use of anticoagulant therapy *05/20/2023 Diagnosed: 05/20/2023 Neck pain [M54.2] 05/20/2023 07 (more content not included)... Normal [facility] Bilirub Conj SerPl-mCncon Bilirubin.conjugated [Mass/Vol] 1.9 mg/dL High <0.3 [facility] Comment on above: Order Comment: Speci men Type: BLOOD SPECIMENOrdering Facility: [facility] Address: [address] [place] [address] Performed By: #### 2 4323-8, 29300-0 ####[facility] [id number] [place] [address] [place] CBC W Auto Differential pane l (Bld)on 01-25-2025 Basophils (Bld) [#/Vol] 0.05 10*3/uL [facility] Basophils/100 WBC (Bld) 0.8 % [facility] Differential cell count method Nom (Bld) Auto [facility] Eosinophils (Bld) [#/Vol] 0.11 10*3/uL [facility] Eosinophils/100 WBC (Bld) 1.7 % [facility] Erythrocyte distribution width (RBC) [Ratio] 15.5 % High 11.5 - 15.0 % [facility] Hematocrit (Bld) [Volume fraction] 33.1 % Low 36.0 - 46.0 % [facility] Hemoglobin (Bld) [Mass/Vol] 10.8 g/dL Low 11.5 - 15.5 g/dL [facility] Immature granulocytes (Bld) [#/Vol] 0.04 10*3/uL [facility] Immature granulocytes/100 WBC (Bld) 0.6 % [facility] Interpretation and review of laboratory results Abnormal [facility] Lymphocytes (Bld) [#/Vol] 0.97 10*3/uL Low [facility] Lymphocytes/100 WBC (Bld) 14.7 % [facility] MCH (RBC) [Entitic mass] 30.9 pg 26.0 - 34.0 pg [facility] MCHC (RBC) [Mass/Vol] 32.6 g/dL 30.5 - 36.0 g/dL [facility] MCV (RBC) [Entitic vol] 94.8 fL 80.0 - 100.0 fL [facility] Monocytes (Bld) [#/Vol] 0.96 10*3/uL High NINF [facility] Monocytes/100 WBC (Bld) 14.5 % [facility] Neutrophils (Bld) [#/Vol] 4.48 10*3/uL [facility] Neutrophils/100 WBC (Bld) 67.7 % [facility] Nucleated RBC (Bld) [#/Vol] NINF [facility] Nucleated RBC/100 WBC (Bld) [Ratio] 0 % /100 WBC [facility] Platelet mean volume (Bld) [Entitic vol] 12.4 fL 9.0 - 12.7 fL [facility] Platelets (Bld) [#/Vol] 274 10*3/uL [facility] RBC (Bld) [#/Vol] 3.49 10*6/uL Low 3.90 - 5.2 0 m/uL [facility] WBC (Bld) [#/Vol] 6.61 10*3/uL [facility] Basophils (Bld) [#/Vol] 0.05 10*3/uL Normal <0.11 [facility] Comment on above: Order Comment: Speci men Type: BLOOD SPECIMEN [facility] Address: [address] [place] [address] Performed By: #### 5 7021-8 #### [facility] [place] [id number] [address] [place] [address] [place] Basophils/100 WBC (Bld) 0.8 % Normal [facility] Comment on above: Order Comment: Speci men Type: BLOOD SPECIMEN Ordering Facility: [facility] Address: [address] [place] [address] Performed By: #### 5 7021-8 #### [facility] CLIA [id number] [address] [place] [address] [place] Differential cell count method Nom (Bld) Auto Normal [facility] Comment on above: Order Comment: Speci men Type: BLOOD SPECIMEN Ordering Facility: [facility] Address: [address] [place] [address] Performed By: #### 5 7021-8 #### [facility] CLIA [id number] [address] [place] [address] [place] Eosinophils (Bld) [#/Vol] 0.11 10*3/uL Normal <0.46 [facility] Comment on above: Order Comment: Speci men Type: BLOOD SPECIMEN Ordering Facility: [facility] Address: [address] [place] [address] Performed By: #### 5 7021-8 #### [facility] CLIA [id number] [address] [place] [address] [place] Eosinophils/100 WBC (Bld) 1.7 % Normal [facility] Comment on above: Order Comment: Speci men Type: BLOOD SPECIMEN Ordering Facility: [facility] Address: [address] [place] [address] Performed By: #### 5 7021-8 #### [facility] CLIA [id number] [address] [place] [address] [place] Erythrocyte distribution width (RBC) [Ratio] 15.5 % High 11.5-15.0 [facility] Comment on above: Order Comment: Speci men Type: BLOOD SPECIMEN Ordering Facility: [facility] Address: [address] [place] [address] Performed By: #### 5 7021-8 #### [facility] CLIA [id number] [address] [place] [address] [place] Hematocrit (Bld) [Volume fraction] 33.1 % Low 36.0-46.0 [facility] Comment on above: Order Comment: Speci men Type: BLOOD SPECIMEN Ordering Facility: [facility] Address: [address] [place] [address] Performed By: #### 5 7021-8 #### [facility] CLIA [id number] [address] [place] [address] [place] Hemoglobin (Bld) [Mass/Vol] 10.8 g/dL Low 11.5-15.5 [facility] Comment on above: Order Comment: Speci men Type: BLOOD SPECIMEN Ordering Facility: [facility] Address: [address] [place] [address] Performed By: #### 5 7021-8 #### [facility] CLIA [id number] [address] [place] [address] [place] Immature granulocytes (Bld) [#/Vol] 0.04 10*3/uL Normal <0.10 [facility] Comment on above: Order Comment: Speci men Type: BLOOD SPECIMEN Ordering Facility: [facility] Address: [address] [place] [address] Performed By: #### 5 7021-8 #### [facility] CLIA [id number] [address] [place] [address] [place] Immature granulocytes/100 WBC (Bld) 0.6 % Normal [facility] Comment on above: Order Comment: Speci men Type: BLOOD SPECIMEN Ordering Facility: [facility] Address: [address] [place] [address] Performed By: #### 5 7021-8 #### [facility] CLIA [id number] [address] [place] [address] [place] Lymphocytes (Bld) [#/Vol] 0.97 10*3/uL Low 1.00-4.00 [facility] Comment on above: Order Comment: Speci men Type: BLOOD SPECIMEN Ordering Facility: [facility] Address: [address] [place] [address] Performed By: #### 5 7021-8 #### [facility] CLIA [id number] [address] [place] [address] [place] Lymphocytes/100 WBC (Bld) 14.7 % Normal [facility] Comment on above: Order Comment: Speci men Type: BLOOD SPECIMEN Ordering Facility: [facility] Address: [address] [place] [address] Performed By: #### 5 7021-8 #### [facility] CLIA [id number] [address] [place] [address] [place] MCH (RBC) [Entitic mass] 30.9 pg Normal 26.0-34.0 [facility] Comment on above: Order Comment: Speci men Type: BLOOD SPECIMEN Ordering Facility: [facility] Address: [address] [place] [address] Performed By: #### 5 7021-8 #### [facility] CLIA [id number] [address] [place] [address] [place] MCHC (RBC) [Mass/Vol] 32.6 g/dL Normal 30.5-36.0 [facility] Comment on above: Order Comment: Speci men Type: BLOOD SPECIMEN Ordering Facility: [facility] Address: [address] [place] [address] Performed By: #### 5 7021-8 #### [facility] CLIA [id number] [address] [place] [address] [place] MCV (RBC) [Entitic vol] 94.8 fL Normal 80.0-100.0 [facility] Comment on above: Order Comment: Speci men Type: BLOOD SPECIMEN Ordering Facility: [facility] Address: [address] [place] [address] Performed By: #### 5 7021-8 #### [facility] CLIA [id number] [address] [place] [address] [place] Monocytes (Bld) [#/Vol] 0.96 10*3/uL High <0.87 [facility] Comment on above: Order Comment: Speci men Type: BLOOD SPECIMEN Ordering Facility: [facility] Address: [address] [place] [address] Performed By: #### 5 7021-8 #### [facility] CLIA [id number] [address] [place] [address] [place] Monocytes/100 WBC (Bld) 14.5 % Normal [facility] Comment on above: Order Comment: Speci men Type: BLOOD SPECIMEN Ordering Facility: [facility] Address: [address] [place] [address] Performed By: #### 5 7021-8 #### [facility] CLIA [id number] [address] [place] [address] [place] Neutrophils (Bld) [#/Vol] 4.48 10*3/uL Normal 1.45-7.50 [facility] Comment on above: Order Comment: Speci men Type: BLOOD SPECIMEN [facility] Facility[facility] Address: [address] [place] [address] Performed By: #### 5 7021-8 #### [facility] CLIA [id number] [address] [place] [address] [place] Neutrophils/100 WBC (Bld) 67.7 % Normal [facility] Comment on above: Order Comment: Speci men Type: BLOOD SPECIMEN Ordering Facility: [facility] Address: [address] [place] [address] Performed By: #### 5 7021-8 #### [facility] CLIA [id number] [address] [place] [address] [place] Nucleated RBC (Bld) [#/Vol] 10*3/uL Normal <0.01 [facility] Comment on above: Order Comment: Speci men Type: BLOOD SPECIMEN Ordering Facility: [facility] Address: [address] [place] [address] Performed By: #### 5 7021-8 #### [facility] CLIA [id number] [address] [place] [address] [place] Nucleated RBC/100 WBC (Bld) [Ratio] 0.0 /100 WBC Normal [facility] Comment on above: Order Comment: Speci men Type: BLOOD SPECIMEN Ordering Facility: [facility] Address: [address] [place] [address] Performed By: #### 5 7021-8 #### [facility] CLIA [id number] [address] [place] [address] [place] Platelet mean volume (Bld) [Entitic vol] 12.4 fL Normal 9.0-12.7 [facility] Comment on above: Order Comment: Speci men Type: BLOOD SPECIMEN Ordering Facility: [facility] Address: [address] [place] [address] Performed By: #### 5 7021-8 #### [facility] CLIA [id number] [address] [place] [address] [place] Platelets (Bld) [#/Vol] 274 10*3/uL Normal 150-400 [facility] Comment on above: Order Comment: Speci men Type: BLOOD SPECIMEN Ordering Facility: [facility] Address: [address] [place] [address] Performed By: #### 5 7021-8 #### [facility] CLIA [id number] [address] [place] [address] [place] RBC (Bld) [#/Vol] 3.49 10*6/uL Low 3.90-5.20 [facility] Comment on above: Order Comment: Speci men Type: BLOOD SPECIMEN Ordering Facility: [facility] Address: [address] [place] [address] Performed By: #### 5 7021-8 #### [facility] CLIA [id number] [address] [place] [address] [place] WBC (Bld) [#/Vol] 6.61 10*3/uL Normal 3.70-11.00 [facility] Comment on above: Order Comment: Speci men Type: BLOOD SPECIMEN Ordering Facility: [facility] Address: [address] [place] [address] Performed By: #### 5 7021-8 #### [facility] CLIA [id number] [address] [place] [address] [place] CNOVSPon 01-25-2025 CNOVSP Visit (SP) Office (H EMAWS) -- TELMA TINEO ([id number]) 1940 F Date Time Provider Department 01/25/25 [...] presented with painless jaundice, admitted initially at [facility], transferred for further work up at [facility]. Saw hepatobiliary surgery there, noted pancreatic mass. [...] 1 Each once daily. REVIEW OF SYSTEMS: [employer] (more content not included)... [facility] IMMANUEL Telephone (LUKE) -- TELMA TINEO ([id number]) 1940 F Date Time Provider Department 01/25/25 [...] Reason for Visit: Care Coordination [3491] Cmt: Introduction Prescriptions as of 01/25/2025 - [...] - Blood-Glucose Meter,Continuous (FREESTYLE TOLU 3 READER) [facility] [place] Use to check blood sugar at least [...] once daily. - Blood Pressure Test Kit-Large ([employer] ARM BP MONITOR) 1 Each once daily. 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 *05/20/2023 Diagnosed: [...] Status:Closed by MARIA ISABEL SILVERIO on 01/25/25 Normal [facility] Telephone (Chilltime) -- TELMA TINEO ([id number]) 1940 F Date Time Provider Department 01/25/25 JUAN MIGUEL YUSUF During your visit today, we recorded the following information about you: Rachel Bañuelos 01/25/2025 9:15 AM Signed Labs today-DONE Chemo Education-SCHEDULED 01/27 Start [place]/Abraxane, straight back to start with CBC (3wks on/1 wk off) CBC with each treatment CBC/CMP/OV with each Q cycle Start treatment this week if possible [...] - Blood-Glucose Meter,Continuous (FREESTYLE TOLU 3 READER) [facility] [place] Use to check blood sugar at least [...] once daily. - Blood Pressure Test Kit-Large ([employer] ARM BP MONITOR) 1 Each once daily. 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 *05/20/2023 Diagnosed: [...] Status:Closed by RACHEL BAÑUELOS on 01/25/25 Normal [facility] Comprehensive metabolic 2000 panelOrdered By: Angelia Paez on 01-25-2025 Albumin [Mass/Vol] 3.8 g/dL Low 3.9 - 4.9 g/dL [facility] ALP [Catalytic activity/Vol] 170 U/L High 34 - 123 U/L [facility] ALT [Catalytic activity/Vol] 37 U/L 7 - 38 U/L [facility] Anion gap [Moles/Vol] 10 mmol/L 8 - 15 mmol/L [facility] AST [Catalytic activity/Vol] 28 U/L 13 - 35 U/L [facility] Bilirubin [Mass/Vol] 2.6 mg/dL High 0.2 - 1 .3 mg/dL [facility] Calcium [Mass/Vol] 9.4 mg/dL 8.5 - 10. 2 mg/dL [facility] Chloride [Moles/Vol] 101 mmol/L 98 - 10 7 mmol/L [facility] CO2 [Moles/Vol] 21 mmol/L Low 22 - 30 mmol/L [facility] Creatinine [Mass/Vol] 0.58 mg/dL 0.58 - 0.96 mg/dL [facility] GFR/1.73 sq M.predicted among non-blacks MDRD (S/P/Bld) [Vol rate/Area] 89 mL/min/{1.73_m2} - PINF [facility] Comment on above: Estimated Glomerular Filtration [...] 325 mg/dL High 74 - 99 mg/dL [facility] Comment on above: The [place] Diabete s Association (ADA) provides guidance for [...] Standards of Medical Care in Diabetes 2016, [place] Diabetes Association. Diabetes Care. 2016.39(Suppl 1). Interpretation and review of laboratory results Abnormal [facility] Potassium [Moles/Vol] 4.5 mmol/L 3.7 - 5.1 mmol/L [facility] Protein [Mass/Vol] 6.9 g/dL 6.3 - 8.0 g/dL [facility] Sodium [Moles/Vol] 132 mmol/L Low 136 - 144 mmol/L [facility] Urea nitrogen [Mass/Vol] 11 mg/dL 7 - 21 mg/dL [facility] Comprehensive metabolic 2000 panelon 01-25-2025 Albumin [Mass/Vol] 3.8 g/dL Low 3.9-4.9 [facility] Comment on above: Order Comment: Speci men Type: BLOOD SPECIMENOrdering Facility: [facility] Address: [address] [place] [address] Performed By: #### 2 4323-8, 96128-9 ####[facility] [id number] [place] [address] [place] ALP [Catalytic activity/Vol] 170 U/L High 34-123 [facility] Comment on above: Order Comment: Speci men Type: BLOOD SPECIMENOrdering Facility: [facility] Address: [address] [place] [address] Performed By: #### 2 4323-8, 26577-6 ####[facility] KHLOEWYAYAA [id number] [place] [address] [place] ALT [Catalytic activity/Vol] 37 U/L Normal 7-38 [facility] Comment on above: Order Comment: Speci men Type: BLOOD SPECIMENOrdering Facility: [facility] Address: [address] [place] [address] Performed By: #### 2 4323-8, 33702-8 ####[facility]ITALNCLIA [id number] [place] [address] [place] Anion gap [Moles/Vol] 10 mmol/L Normal 8-15 [facility] Comment on above: Order Comment: Speci men Type: BLOOD SPECIMENOrdering Facility: [facility] Address: [address] [place] [address] Performed By: #### 2 4323-8, 55136-6 ####[facility] HOSPITALYAYAA [id number] [place] [address] [place] AST [Catalytic activity/Vol] 28 U/L Normal 13-35 [facility] Comment on above: Order Comment: Speci men Type: BLOOD SPECIMENOrdering Facility: [facility] Address: [address] [place] [address] Performed By: #### 2 4323-8, 92319-4 ####[facility]ITALNCLIA [id number] [place] [address] [place] Bilirubin [Mass/Vol] 2.6 mg/dL High 0.2-1.3 [facility] Comment on above: Order Comment: Speci men Type: BLOOD SPECIMENOrdering Facility: [facility] Address: [address] [place] [address] Performed By: #### 2 4323-8, 85807-6 ####[facility] REJI ENCISONCMURIELKush [id number] [place] [address] [place] Calcium [Mass/Vol] 9.4 mg/dL Normal 8.5-10.2 [facility] Comment on above: Order Comment: Speci men Type: BLOOD SPECIMENOrdering Facility: [facility] Address: [address] [place] [address] Performed By: #### 2 4323-8, 88413-0 ####[facility] KHLOEMARILLANCERNESTO [id number] [place] [address] [place] Chloride [Moles/Vol] 101 mmol/L Normal 98-107 [facility] Comment on above: Order Comment: Speci men Type: BLOOD SPECIMENOrdering Facility: [facility] Address: [address] [place] [address] Performed By: #### 2 4323-8, 42538-7 ####[facility] KHLOEMARILLANCMURIELA [id number] [place] [address] [place] CO2 [Moles/Vol] 21 mmol/L Low 22-30 [facility] Comment on above: Order Comment: Speci men Type: BLOOD SPECIMENOrdering Facility: [facility] Address: [address] [place] [address] Performed By: #### 2 4323-8, 08232-1 ####[facility]ITALNCLIA [id number] [place] [address] [place] Creatinine [Mass/Vol] 0.58 mg/dL Normal 0.58-0.96 [facility] Comment on above: Order Comment: Speci men Type: BLOOD SPECIMENOrdering Facility: [facility] Address: [address] [place] [address] Performed By: #### 2 4323-8, 33177-8 ####[facility] [id number] [place] [address] [place] Creatinine and Glomerular filtration rate.predicted panel (S/P/Bld) 89 mL/min/1.73m??? Normal >=60 [facility] Comment on above: Order Comment: Dayron stinson Type: BLOOD SPECIMENOrdering Facility: [facility] Address: [address] [place] [address] Result Comment: Kya mated Glomerular Filtration Rate [...] actual GFR. Performed By: #### 2 4323-8, 05080-9 ####[facility] [id number] [place] [address] [place] Glucose [Mass/Vol] 325 mg/dL High 74-99 [facility] Comment on above: Order Comment: Dayron stinson Type: BLOOD SPECIMENOrdering Facility: [facility] Address: [address] [place] [address] Result Comment: The [place] Diabetes Association (ADA) provides guidance for cutoff [...] Standards of Medical Care in Diabetes 2016, [place] Diabetes Association. Diabetes Care. 2016.39(Suppl 1). Performed By: #### 2 4323-8, 25324-6 ####[facility] REJI MILLTOWNCLIA [id number] [place] [address] [place] Potassium [Moles/Vol] 4.5 mmol/L Normal 3.7-5.1 [facility] Comment on above: Order Comment: Speci men Type: BLOOD SPECIMENOrdering Facility: [facility] Address: [address] [place] [address] Performed By: #### 2 4323-8, 56639-4 ####[facility] MILLTOWNCLIA [id number] [place] [address] [place] Protein [Mass/Vol] 6.9 g/dL Normal 6.3-8.0 [facility] Comment on above: Order Comment: Speci men Type: BLOOD SPECIMENOrdering Facility: [facility] Address: [address] [place] [address] Performed By: #### 2 4323-8, 88590-5 ####[facility] MILLTOWNCLIA [id number] [place] [address] [place] Sodium [Moles/Vol] 132 mmol/L Low 136-144 [facility] Comment on above: Order Comment: Speci men Type: BLOOD SPECIMENOrdering Facility: [facility] Address: [address] [place] [address] Performed By: #### 2 4323-8, 16187-8 ####[facility] MILLTOWNCLIA [id number] [place] [address] [place] Urea nitrogen [Mass/Vol] 11 mg/dL Normal 7-21 [facility] Comment on above: Order Comment: Speci men Type: BLOOD SPECIMENOrdering Facility: [facility] Address: [address] [place] [address] Performed By: #### 2 4323-8, 89367-8 ####[facility] MILLTOWNCLIA [id number] [place] [id number] [place] [address] [place] Lenin 01-24-2025 NÉSTORN Telephone (HEMAWS) -- TELMA TINEO ([id number]) 1940 F Date Time Provider Department 01/24/25 [...] - Blood-Glucose Meter,Continuous (FREESTYLE TOLU 3 READER) [facility] Use to check blood sugar at least [...] once daily. - Blood Pressure Test Kit-Large ([employer] ARM BP MONITOR) 1 Each once daily. 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 LABORATORYCLIA [id number] [address] [place] Basophils/100 WBC (Bld) 0.2 % Normal [facility] Comment on above: Order Comment: Speci men Type: BLOOD SPECIMENOrdering Facility: [facility] Address: [address] [place] [address] Performed By: #### 5 7021-8 ####[facility] LABORATORYCLIA [id number] [address] [place] Differential cell count method Nom (Bld) Auto Normal [facility] Comment on above: Order Comment: Speci men Type: BLOOD SPECIMENOrdering Facility: [facility] Address: [address] [place] [address] Performed By: #### 5 7021-8 ####[facility]ATORYCLIA [id number] [address] [place] Eosinophils (Bld) [#/Vol] 0.12 10*3/uL Normal <0.46 [facility] Comment on above: Order Comment: Speci men Type: BLOOD SPECIMENOrdering Facility: [facility] Address: [address] [place] [address] Performed By: #### 5 7021-8 ####[facility]ATORYCLIA [id number] [address] Eosinophils/100 WBC (Bld) 1.1 % Normal [facility] Comment on above: Order Comment: Speci men Type: BLOOD SPECIMENOrdering Facility: [facility] Address: [address] [place] [address] Performed By: #### 5 7021-8 ####[facility] LABORATORYCLIA [id number] [address] Erythrocyte distribution width (RBC) [Ratio] 15.7 % High 11.5-15.0 [facility] Comment on above: Order Comment: Speci men Type: BLOOD SPECIMENOrdering Facility: [facility] Address: [address] [place] [address] Performed By: #### 5 7021-8 ####[facility] LABORATORYCLIA [id number] [address] [place] Hematocrit (Bld) [Volume fraction] 28.7 % Low 36.0-46.0 [facility] Comment on above: Order Comment: Speci men Type: BLOOD SPECIMENOrdering Facility: [facility] Address: [address] [place] [address] Performed By: #### 5 7021-8 ####[facility] LABORATORYCLIA [id number] [address] Hemoglobin (Bld) [Mass/Vol] 9.2 g/dL Low 11.5-15.5 [facility] Comment on above: Order Comment: Speci men Type: BLOOD SPECIMENOrdering Facility: [facility] Address: [address] [place] [address] Performed By: #### 5 7021-8 ####[facility] LABORATORYCLIA [id number] [address] Immature granulocytes (Bld) [#/Vol] 0.06 10*3/uL Normal <0.10 [facility] Comment on above: Order Comment: Speci men Type: BLOOD SPECIMENOrdering Facility: [facility] Address: [address] [place] [address] Performed By: #### 5 7021-8 ####[facility] LABORATORYCLIA [id number] [address] Immature granulocytes/100 WBC (Bld) 0.6 % Normal [facility] Comment on above: Order Comment: Speci men Type: BLOOD SPECIMENOrdering Facility: [facility] Address: [address] [place] [address] Performed By: #### 5 7021-8 ####[facility] LABORATORYCLIA [id number] [address] Lymphocytes (Bld) [#/Vol] 0.97 10*3/uL Low 1.00-4.00 [facility] Comment on above: Order Comment: Speci men Type: BLOOD SPECIMENOrdering Facility: [facility] Address: [address] [place] [address] Performed By: #### 5 7021-8 ####[facility]ATORYCLIA [id number] [address] Lymphocytes/100 WBC (Bld) 9.0 % Normal [facility] Comment on above: Order Comment: Speci men Type: BLOOD SPECIMENOrdering Facility: [facility] Address: [address] [place] [address] Performed By: #### 5 7021-8 ####[facility] LABORATORYCLIA [id number] [address] MCH (RBC) [Entitic mass] 30.9 pg Normal 26.0-34.0 [facility] Comment on above: Order Comment: Speci men Type: BLOOD SPECIMENOrdering Facility: [facility] Address: [address] [place] [address] Performed By: #### 5 7021-8 ####[facility] LABORATORYCLIA [id number] [place] [address] [place] MCHC (RBC) [Mass/Vol] 32.1 g/dL Normal 30.5-36.0 [facility] Comment on above: Order Comment: Speci men Type: BLOOD SPECIMENOrdering Facility: [facility] Address: [address] [place] [address] Performed By: #### 5 7021-8 ####[facility] LABORATORYCLIA [id number] [place] [address] [place] MCV (RBC) [Entitic vol] 96.3 fL Normal 80.0-100.0 [facility] Comment on above: Order Comment: Speci men Type: BLOOD SPECIMENOrdering Facility: [facility] Address: [address] [place] [address] Performed By: #### 5 7021-8 ####[facility] LABORATORYCLIA [id number] [address] [place] Monocytes (Bld) [#/Vol] 1.23 10*3/uL High <0.87 [facility] Comment on above: Order Comment: Speci men Type: BLOOD SPECIMENOrdering Facility: [facility] Address: [address] [place] [address] Performed By: #### 5 7021-8 ####[facility] LABORATORYCLIA [id number] [address] [place] Monocytes/100 WBC (Bld) 11.5 % Normal [facility] Comment on above: Order Comment: Speci men Type: BLOOD SPECIMENOrdering Facility: [facility] Address: [address] [place] [address] Performed By: #### 5 7021-8 ####[facility] LABORATORYCLIA [id number] [place] [address] [place] Neutrophils (Bld) [#/Vol] 8.33 10*3/uL High 1.45-7.50 [facility] Comment on above: Order Comment: Speci men Type: BLOOD SPECIMENOrdering Facility: [facility] Address: [address] [place] [address] Performed By: #### 5 7021-8 ####[facility] LABORATORYCLIA [id number] [place] [address] [place] Neutrophils/100 WBC (Bld) 77.6 % Normal [facility] Comment on above: Order Comment: Speci men Type: BLOOD SPECIMENOrdering Facility: [facility] Address: [address] [place] [address] Performed By: #### 5 7021-8 ####[facility] LABORATORYCLIA [id number] [place] [address] [place] Nucleated RBC (Bld) [#/Vol] 10*3/uL Normal <0.01 [facility] Comment on above: Order Comment: Speci men Type: BLOOD SPECIMENOrdering Facility: [facility] Address: [address] [place] [address] Performed By: #### 5 7021-8 ####[facility] LABORATORYCLIA [id number] [address] [place] Nucleated RBC/100 WBC (Bld) [Ratio] 0.0 /100 WBC Normal [facility] Comment on above: Order Comment: Speci men Type: BLOOD SPECIMENOrdering Facility: [facility] Address: [address] [place] [address] Performed By: #### 5 7021-8 ####[facility] LABORATORYCLIA [id number] [address] [place] Platelet mean volume (Bld) [Entitic vol] 12.9 fL High 9.0-12.7 [facility] Comment on above: Order Comment: Speci men Type: BLOOD SPECIMENOrdering Facility: [facility] Address: [address] [place] [address] Performed By: #### 5 7021-8 ####[facility] LABORATORYCLIA [id number] [place] [address] [place] Platelets (Bld) [#/Vol] 237 10*3/uL Normal 150-400 [facility] Comment on above: Order Comment: Speci men Type: BLOOD SPECIMENOrdering Facility: [facility] Address: [address] [place] [address] Performed By: #### 5 7021-8 ####[facility] LABORATORYCLIA [id number] [place] [address] [place] RBC (Bld) [#/Vol] 2.98 10*6/uL Low 3.90-5.20 [facility] Comment on above: Order Comment: Speci men Type: BLOOD SPECIMENOrdering Facility: [facility] Address: [address] [place] [address] Performed By: #### 5 7021-8 ####[facility] LABORATORYCLIA [id number] [address] [place] WBC (Bld) [#/Vol] 10.73 10*3/uL Normal 3.70-11.00 [facility] Comment on above: Order Comment: Speci men Type: BLOOD SPECIMENOrdering Facility: [facility] Address: [address] [place] [address] Performed By: #### 5 7021-8 ####[facility] LABORATORYCLIA [id number] [address] [place] CNDSon 01-23-2025 CNDS Normal [facility] Hepatic function 2000 panelo n 01-23-2025 Albumin [Mass/Vol] 3.4 g/dL Low 3.9-4.9 [facility] Comment on above: Order Comment: Speci men Type: BLOOD SPECIMENOrdering Facility: [facility] Address: [address] [place] [address] Performed By: #### 2 4325-3 ####[facility] LABORATORYCLIA [id number] [address] [place] ALP [Catalytic activity/Vol] 155 U/L High 34-123 [facility] Comment on above: Order Comment: Speci men Type: BLOOD SPECIMENOrdering Facility: [facility] Address: [address] [place] [address] Performed By: #### 2 4325-3 ####[facility]ORATORYCLIA [id number] [address] [place] ALT With P-5'-P [Catalytic activity/Vol] 46 U/L High 7-38 [facility] Comment on above: Order Comment: Speci men Type: BLOOD SPECIMENOrdering Facility: [facility] Address: [address] [place] [address] Performed By: #### 2 4325-3 ####[facility]ORATORYCLIA [id number] [address] AST With P-5'-P [Catalytic activity/Vol] 39 U/L High 13-35 [facility] Comment on above: Order Comment: Speci men Type: BLOOD SPECIMENOrdering Facility: [facility] Address: [address] [place] [address] Performed By: #### 2 4325-3 ####[facility]ORATORYCLIA [id number] [address] [place] Bilirubin [Mass/Vol] 2.5 mg/dL High 0.2-1.3 [facility] Comment on above: Order Comment: Speci men Type: BLOOD SPECIMENOrdering Facility: [facility] Address: [address] [place] [address] Performed By: #### 2 4325-3 ####[facility]ORATORYCLIA [id number] [address] Bilirubin.conjugated [Mass/Vol] 1.9 mg/dL High <0.3 [facility] Comment on above: Order Comment: Speci men Type: BLOOD SPECIMENOrdering Facility: [facility] Address: [address] [place] [address] Performed By: #### 2 5-3 ####[facility] LABORATORYCLIA [id number] [place] [id number] [place] Protein [Mass/Vol] 5.8 g/dL Low 6.3-8.0 [facility] Comment on above: Order Comment: Speci men Type: BLOOD SPECIMENOrdering Facility: [facility] Address: [address] [place] [address] Performed By: #### 2 4325-3 ####[facility] LABORATORYCLIA [id number] [place] [address] [place] ANES PRE-OPon 01-22-2025 ANES PRE-OP Normal [facility] CASE MANAGEMon 01-22-2025 CASE MANAGEM Normal [facility] CBC panel Auto (Bld)on 01-22 Erythrocyte distribution width (RBC) [Ratio] 15.9 % High 11.5-15.0 [facility] Comment on above: Order Comment: Speci men Type: BLOOD SPECIMENOrdering Facility: [facility] Address: [address] [place] [address] Performed By: #### 5 8410-2 ####[facility]ORATORYCLIA [id number] [place] [address] [place] Hematocrit (Bld) [Volume fraction] 28.8 % Low 36.0-46.0 [facility] Comment on above: Order Comment: Speci men Type: BLOOD SPECIMENOrdering Facility: [facility] Address: [address] [place] [address] Performed By: #### 5 8410-2 ####[facility]ORATORYCLIA [id number] [place] [address] [place] Hemoglobin (Bld) [Mass/Vol] 9.3 g/dL Low 11.5-15.5 [facility] Comment on above: Order Comment: Speci men Type: BLOOD SPECIMENOrdering Facility: [facility] Address: [address] [place] [address] Performed By: #### 5 8410-2 ####[facility] LABORATORYCLIA [id number] [address] MCH (RBC) [Entitic mass] 31.1 pg Normal 26.0-34.0 [facility] Comment on above: Order Comment: Speci men Type: BLOOD SPECIMENOrdering Facility: [facility] Address: [address] [place] [address] Performed By: #### 5 8410-2 ####[facility] LABORATORYCLIA [id number] [address] [place] MCHC (RBC) [Mass/Vol] 32.3 g/dL Normal 30.5-36.0 [facility] Comment on above: Order Comment: Speci men Type: BLOOD SPECIMENOrdering Facility: [facility] Address: [address] [place] [address] Performed By: #### 5 8410-2 ####[facility] LABORATORYCLIA [id number] [address] [place] MCV (RBC) [Entitic vol] 96.3 fL Normal 80.0-100.0 [facility] Comment on above: Order Comment: Speci men Type: BLOOD SPECIMENOrdering Facility: [facility] Address: [address] [place] [address] Performed By: #### 5 8410-2 ####[facility]ORATORYCLIA [id number] [address] Nucleated RBC (Bld) [#/Vol] 10*3/uL Normal <0.01 [facility] Comment on above: Order Comment: Speci men Type: BLOOD SPECIMENOrdering Facility: [facility] Address: [address] [place] [address] Performed By: #### 5 8410-2 ####[facility] LABORATORYCLIA [id number] [address] STATES [facility] Platelet mean volume (Bld) [Entitic vol] 13.0 fL High 9.0-12.7 [facility] Comment on above: Order Comment: Speci men Type: BLOOD SPECIMENOrdering Facility: [facility] Address: [address] [place] [address] Performed By: #### 5 8410-2 ####[facility] LABORATORYCLIA [id number] [address] [place] Platelets (Bld) [#/Vol] 254 10*3/uL Normal 150-400 [facility] Comment on above: Order Comment: Speci men Type: BLOOD SPECIMENOrdering Facility: [facility] Address: [address] [place] [address] Performed By: #### 5 8410-2 ####[facility]ORATORYCLIA [id number] [address] [place] RBC (Bld) [#/Vol] 2.99 10*6/uL Low 3.90-5.20 [facility] Comment on above: Order Comment: Speci men Type: BLOOD SPECIMENOrdering Facility: [facility] Address: [address] [place] [address] Performed By: #### 5 8410-2 ####[facility] LABORATORYCLIA [id number] [address] WBC (Bld) [#/Vol] 6.28 10*3/uL Normal 3.70-11.00 [facility] Comment on above: Order Comment: Speci men Type: BLOOD SPECIMENOrdering Facility: [facility] Address: [address] [place] [address] Performed By: #### 5 8410-2 ####[facility]ORATORYCLIA [id number] [address] CONSULT PROGon 01-22-2025 CONSULT PROG Normal [facility] Comprehensive metabolic 2000 panelon 01-22-2025 Albumin [Mass/Vol] 3.4 g/dL Low 3.9-4.9 [facility] Comment on above: Order Comment: Speci men Type: BLOOD SPECIMENOrdering Facility: [facility] Address: [address] [place] [address] Performed By: #### 2 4323-8 ####[facility]ORATORYCLIA [id number] [place] ALP [Catalytic activity/Vol] 161 U/L High 34-123 [facility] Comment on above: Order Comment: Speci men Type: BLOOD SPECIMENOrdering Facility: [facility] Address: [address] [place] [address] Performed By: #### 2 4323-8 ####[facility] LABORATORYCLIA [id number] [address] [place] ALT With P-5'-P [Catalytic activity/Vol] 48 U/L High 7-38 [facility] Comment on above: Order Comment: Speci men Type: BLOOD SPECIMENOrdering Facility: [facility] Address: [address] [place] [address] Performed By: #### 2 4323-8 ####[facility]ORATORYCLIA [id number] [address] [place] Anion gap [Moles/Vol] 10 mmol/L Normal 8-15 [facility] Comment on above: Order Comment: Speci men Type: BLOOD SPECIMENOrdering Facility: [facility] Address: [address] [place] [address] Performed By: #### 2 4323-8 ####[facility]ORATORYCLIA [id number] [address] AST With P-5'-P [Catalytic activity/Vol] 39 U/L High 13-35 [facility] Comment on above: Order Comment: Speci men Type: BLOOD SPECIMENOrdering Facility: [facility] Address: [address] [place] [address] Performed By: #### 2 4323-8 ####[facility]ORATORYCLIA [id number] [address] [place] Bilirubin [Mass/Vol] 2.5 mg/dL High 0.2-1.3 [facility] Comment on above: Order Comment: Speci men Type: BLOOD SPECIMENOrdering Facility: [facility] Address: [address] [place] [address] Performed By: #### 2 4323-8 ####[facility]ORATORYCLIA [id number] [place] [address] [place] Calcium [Mass/Vol] 9.1 mg/dL Normal 8.5-10.2 [facility] Comment on above: Order Comment: Speci men Type: BLOOD SPECIMENOrdering Facility: [facility] Address: [address] [place] [address] Performed By: #### 2 4323-8 ####[facility]ORATORYCLIA [id number] [place] [address] [place] Chloride [Moles/Vol] 104 mmol/L Normal 98-107 [facility] Comment on above: Order Comment: Speci men Type: BLOOD SPECIMENOrdering Facility: [facility] Address: [address] [place] [address] Performed By: #### 2 4323-8 ####[facility]ORATORYCLIA [id number] [place] [address] [place] CO2 [Moles/Vol] 23 mmol/L Normal 22-30 [facility] Comment on above: Order Comment: Speci men Type: BLOOD SPECIMENOrdering Facility: [facility] Address: [address] [place] [address] Performed By: #### 2 4323-8 ####[facility]ORATORYCLIA [id number] [place] [address] [place] Creatinine [Mass/Vol] 0.69 mg/dL Normal 0.58-0.96 [facility] Comment on above: Order Comment: Speci men Type: BLOOD SPECIMENOrdering Facility: [facility] Address: [address] [place] [address] Performed By: #### 2 4323-8 ####[facility]ORATORYCLIA [id number] [address] [place] Creatinine and Glomerular filtration rate.predicted panel (S/P/Bld) 86 mL/min/1.73m??? Normal >=60 [facility] Comment on above: Order Comment: Speci men Type: BLOOD SPECIMENOrdering Facility: [facility] Address: [address] [place] [address] Result Comment: [place]ya mated Glomerular Filtration Rate [...] GFR. Performed By: #### 2 4323-8 ####[facility]ORATORYCLIA [id number] [place] [address] [place] Glucose [Mass/Vol] 171 mg/dL High 74-99 [facility] Comment on above: Order Comment: Dayron stinson Type: BLOOD SPECIMENOrdering Facility: [facility] Address: [address] [place] [address] Result Comment: The [place] [employer] (ADA) provides guidance for cutoff [...] Standards of Medical Care in Diabetes 2016, [place] [employer]. Diabetes Care. 2016.39(Suppl 1). Performed By: #### 2 4323-8 ####[facility]ORATORYCLIA [id number] [place] [address] [place] Potassium [Moles/Vol] 4.3 mmol/L Normal 3.7-5.1 [facility] Comment on above: Order Comment: Dayron stinson Type: BLOOD SPECIMENOrdering Facility: [facility] Address: [address] [place] [address] Performed By: #### 2 4323-8 ####[facility]ORATORYCLIA [id number] [place] [address] [place] Protein [Mass/Vol] 5.7 g/dL Low 6.3-8.0 [facility] Comment on above: Order Comment: Speci men Type: BLOOD SPECIMENOrdering Facility: [facility] Address: [address] [place] [address] Performed By: #### 2 4323-8 ####[facility]ORATORYCLIA [id number] [address] [place] Sodium [Moles/Vol] 137 mmol/L Normal 136-144 [facility] Comment on above: Order Comment: Speci men Type: BLOOD SPECIMENOrdering Facility: [facility] Address: [address] [place] [address] Performed By: #### 2 4323-8 ####[facility]ORATORYCLIA [id number] [address] [place] Urea nitrogen [Mass/Vol] 11 mg/dL Normal 7-21 [facility] Comment on above: Order Comment: Speci men Type: BLOOD SPECIMENOrdering Facility: [facility] Address: [address] [place] [address] Performed By: #### 2 4323-8 ####[facility]ORATORYCLIA [id number] [address] [place] NURSING PROGon 01-22-2025 NURSING PROG Normal [facility] NUTRITIONon 01-22-2025 NUTRITION Normal [facility] Upper GI endoscopyon 025 Upper GI endoscopy Normal [facility] CBC panel Auto (Bld)on 01-21 Erythrocyte distribution width (RBC) [Ratio] 15.7 % High 11.5-15.0 [facility] Comment on above: Order Comment: Speci men Type: BLOOD SPECIMENOrdering Facility: [facility] Address: [address] [place] [address] Performed By: #### 5 8410-2 ####[facility]ORATORYCLIA [id number] [address] [place] Hematocrit (Bld) [Volume fraction] 27.9 % Low 36.0-46.0 [facility] Comment on above: Order Comment: Speci men Type: BLOOD SPECIMENOrdering Facility: [facility] Address: [address] [place] [address] Performed By: #### 5 8410-2 ####[facility]ORATORYCLIA [id number] [address] [place] Hemoglobin (Bld) [Mass/Vol] 9.2 g/dL Low 11.5-15.5 [facility] Comment on above: Order Comment: Speci men Type: BLOOD SPECIMENOrdering Facility: [facility] Address: [address] [place] [address] Performed By: #### 5 8410-2 ####[facility]ORATORYCLIA [id number] [address] [place] MCH (RBC) [Entitic mass] 31.5 pg Normal 26.0-34.0 [facility] Comment on above: Order Comment: Speci men Type: BLOOD SPECIMENOrdering Facility: [facility] Address: [address] [place] [address] Performed By: #### 5 8410-2 ####[facility]ORATORYCLIA [id number] [address] [place] MCHC (RBC) [Mass/Vol] 33.0 g/dL Normal 30.5-36.0 [facility] Comment on above: Order Comment: Speci men Type: BLOOD SPECIMENOrdering Facility: [facility] Address: [address] [place] [address] Performed By: #### 5 8410-2 ####[facility]ORATORYCLIA [id number] [address] [place] MCV (RBC) [Entitic vol] 95.5 fL Normal 80.0-100.0 [facility] Comment on above: Order Comment: Speci men Type: BLOOD SPECIMENOrdering Facility: [facility] Address: [address] [place] [address] Performed By: #### 5 8410-2 ####[facility]ORATORYCLIA [id number] [place] [address] [place] Nucleated RBC (Bld) [#/Vol] 10*3/uL Normal <0.01 [facility] Comment on above: Order Comment: Speci men Type: BLOOD SPECIMENOrdering Facility: [facility] Address: [address] [place] [address] Performed By: #### 5 8410-2 ####[facility]ORATORYCLIA [id number] [place] [address] [place] Platelet mean volume (Bld) [Entitic vol] 13.1 fL High 9.0-12.7 [facility] Comment on above: Order Comment: Speci men Type: BLOOD SPECIMENOrdering Facility: [facility] Address: [address] [place] [address] Performed By: #### 5 8410-2 ####[facility]ORATORYCLIA [id number] [address] [place] Platelets (Bld) [#/Vol] 226 10*3/uL Normal 150-400 [facility] Comment on above: Order Comment: Speci men Type: BLOOD SPECIMENOrdering Facility: [facility] Address: [address] [place] [address] Performed By: #### 5 8410-2 ####[facility]ORATORYCLIA [id number] [place] [address] [place] RBC (Bld) [#/Vol] 2.92 10*6/uL Low 3.90-5.20 [facility] Comment on above: Order Comment: Speci men Type: BLOOD SPECIMENOrdering Facility: [facility] Address: [address] [place] [address] Performed By: #### 5 8410-2 ####[facility]ORATORYCLIA [id number] [address] [place] WBC (Bld) [#/Vol] 7.00 10*3/uL Normal 3.70-11.00 [facility] Comment on above: Order Comment: Speci men Type: BLOOD SPECIMENOrdering Facility: [facility] Address: [address] [place] [address] Performed By: #### 5 8410-2 ####[facility] LABORATORYCLIA [id number] [address] [place] CNPNon 01-21-2025 CNPN Normal [facility] CONSULTon 01-21-2025 CONSULT Normal [facility] CONSULT PROGon 01-21-2025 CONSULT PROG Normal [facility] Comprehensive metabolic 2000 panelon 01-21-2025 Albumin [Mass/Vol] 3.2 g/dL Low 3.9-4.9 [facility] Comment on above: Order Comment: Speci men Type: BLOOD SPECIMENOrdering Facility: [facility] Address: [address] [place] [address] Performed By: #### 2 4323-8 ####[facility]ORATORYCLIA [id number] [address] [place] ALP [Catalytic activity/Vol] 171 U/L High 34-123 [facility] Comment on above: Order Comment: Speci men Type: BLOOD SPECIMENOrdering Facility: [facility] Address: [address] [place] [address] Performed By: #### 2 4323-8 ####[facility]ORATORYCLIA [id number] [place] [address] [place] ALT With P-5'-P [Catalytic activity/Vol] 50 U/L High 7-38 [facility] Comment on above: Order Comment: Speci men Type: BLOOD SPECIMENOrdering Facility: [facility] Address: [address] [place] [address] Performed By: #### 2 4323-8 ####[facility]ORATORYCLIA [id number] [address] [place] Anion gap [Moles/Vol] 11 mmol/L Normal 8-15 [facility] Comment on above: Order Comment: Speci men Type: BLOOD SPECIMENOrdering Facility: [facility] Address: [address] [place] [address] Performed By: #### 2 4323-8 ####[facility]ORATORYCLIA [id number] [place] [address] [place] AST With P-5'-P [Catalytic activity/Vol] 37 U/L High 13-35 [facility] Comment on above: Order Comment: Speci men Type: BLOOD SPECIMENOrdering Facility: [facility] Address: [address] [place] [address] Performed By: #### 2 4323-8 ####[facility]ORATORYCLIA [id number] [place] [address] [place] Bilirubin [Mass/Vol] 2.7 mg/dL High 0.2-1.3 [facility] Comment on above: Order Comment: Speci men Type: BLOOD SPECIMENOrdering Facility: [facility] Address: [address] [place] [address] Performed By: #### 2 4323-8 ####[facility]ORATORYCLIA [id number] [place] [address] [place] Calcium [Mass/Vol] 8.8 mg/dL Normal 8.5-10.2 [facility] Comment on above: Order Comment: Speci men Type: BLOOD SPECIMENOrdering Facility: [facility] Address: [address] [place] [address] Performed By: #### 2 4323-8 ####[facility]ORATORYCLIA [id number] [place] [address] [place] Chloride [Moles/Vol] 104 mmol/L Normal 98-107 [facility] Comment on above: Order Comment: Speci men Type: BLOOD SPECIMENOrdering Facility: [facility] Address: [address] [place] [address] Performed By: #### 2 4323-8 ####[facility]ATORYCLIA [id number] [place] [address] [place] CO2 [Moles/Vol] 24 mmol/L Normal 22-30 [facility] Comment on above: Order Comment: Speci men Type: BLOOD SPECIMENOrdering Facility: [facility] Address: [address] [place] [address] Performed By: #### 2 4323-8 ####[facility] LABORATORYCLIA [id number] [place] [id number] [place] Creatinine [Mass/Vol] 0.64 mg/dL Normal 0.58-0.96 [facility] Comment on above: Order Comment: Speci men Type: BLOOD SPECIMENOrdering Facility: [facility] Address: [address] [place] [address] Performed By: #### 2 4323-8 ####[facility]ORATORYCLIA [id number] [address] Creatinine and Glomerular filtration rate.predicted panel (S/P/Bld) 87 mL/min/1.73m??? Normal >=60 [facility] Comment on above: Order Comment: Speci men Type: BLOOD SPECIMENOrdering Facility: [facility] Address: [address] [place] [address] Result Comment: Kya mated Glomerular Filtration Rate [...] GFR. Performed By: #### 2 4323-8 ####[facility]ORATORYCLIA [id number] [place] [id number] [place] Glucose [Mass/Vol] 182 mg/dL High 74-99 [facility] Comment on above: Order Comment: Speci men Type: BLOOD SPECIMENOrdering Facility: [facility] Address: [address] [place] [address] Result Comment: The [place] Diabetes [employer] (ADA) provides guidance for cutoff [...] Standards of Medical Care in Diabetes 2016, [place] [employer]. Diabetes Care. 2016.39(Suppl 1). Performed By: #### 2 4323-8 ####[facility]ORATORYCLIA [id number] [place] [address] [place] Potassium [Moles/Vol] 4.1 mmol/L Normal 3.7-5.1 [facility] Comment on above: Order Comment: Speci men Type: BLOOD SPECIMENOrdering Facility: [facility] Address: [address] [place] [address] Performed By: #### 2 4323-8 ####[facility]ORATORYCLIA [id number] [place] [address] [place] Protein [Mass/Vol] 5.6 g/dL Low 6.3-8.0 [facility] Comment on above: Order Comment: Speci men Type: BLOOD SPECIMENOrdering Facility: [facility] Address: [address] [place] [address] Performed By: #### 2 4323-8 ####[facility]ORATORYCLIA [id number] [place] [address] [place] Sodium [Moles/Vol] 139 mmol/L Normal 136-144 [facility] Comment on above: Order Comment: Speci men Type: BLOOD SPECIMENOrdering Facility: [facility] Address: [address] [place] [address] Performed By: #### 2 4323-8 ####[facility]ORATORYCLIA [id number] [place] [address] [place] Urea nitrogen [Mass/Vol] 14 mg/dL Normal 7-21 [facility] Comment on above: Order Comment: Speci men Type: BLOOD SPECIMENOrdering Facility: [facility] Address: [address] [place] [address] Performed By: #### 2 4323-8 ####[facility]ORATORYCLIA [id number] [address] Hematocrit Auto (Bld) [Volum e fraction]on 01-21-2025 Hematocrit (Bld) [Volume fraction] 30.7 % Low 36.0-46.0 [facility] Comment on above: Order Comment: Speci men Type: BLOOD SPECIMENOrdering Facility: [facility] Address: [address] [place] [address] Performed By: #### 4 544-3, 718-7 ####[facility]ORATORYCLIA [id number] [address] [place] Hgb Bld-mCncon 01-21-2025 Hemoglobin (Bld) [Mass/Vol] 9.9 g/dL Low 11.5-15.5 [facility] Comment on above: Order Comment: Speci men Type: BLOOD SPECIMENOrdering Facility: [facility] Address: [address] [place] [address] Performed By: #### 4 544-3, 718-7 ####[facility]ORATORYCLIA [id number] [address] CASE MANAGEMon 01-20-2025 CASE MANAGEM Normal [facility] CBC panel Auto (Bld)on 01-20 Erythrocyte distribution width (RBC) [Ratio] 15.9 % High 11.5-15.0 [facility] Comment on above: Order Comment: Speci men Type: BLOOD SPECIMENOrdering Facility: [facility] Address: [address] [place] [address] Performed By: #### 5 8410-2 ####[facility]ORATORYCLIA [id number] [address] Hematocrit (Bld) [Volume fraction] 30.5 % Low 36.0-46.0 [facility] Comment on above: Order Comment: Speci men Type: BLOOD SPECIMENOrdering Facility: [facility] Address: [address] [place] [address] Performed By: #### 5 8410-2 ####[facility]ORATORYCLIA [id number] [address] [place] Hemoglobin (Bld) [Mass/Vol] 9.9 g/dL Low 11.5-15.5 [facility] Comment on above: Order Comment: Speci men Type: BLOOD SPECIMENOrdering Facility: [facility] Address: [address] [place] [address] Performed By: #### 5 8410-2 ####[facility] LABORATORYCLIA [id number] [address] STATES [facility] MCH (RBC) [Entitic mass] 30.8 pg Normal 26.0-34.0 [facility] Comment on above: Order Comment: Speci men Type: BLOOD SPECIMENOrdering Facility: [facility] Address: [address] [place] [address] Performed By: #### 5 8410-2 ####[facility]ORATORYCLIA [id number] [address] MCHC (RBC) [Mass/Vol] 32.5 g/dL Normal 30.5-36.0 [facility] Comment on above: Order Comment: Speci men Type: BLOOD SPECIMENOrdering Facility: [facility] Address: [address] [place] [address] Performed By: #### 5 8410-2 ####[facility]ATORYCLIA [id number] [address] [place] MCV (RBC) [Entitic vol] 95.0 fL Normal 80.0-100.0 [facility] Comment on above: Order Comment: Speci men Type: BLOOD SPECIMENOrdering Facility: [facility] Address: [address] [place] [address] Performed By: #### 5 8410-2 ####[facility] LABORATORYCLIA [id number] [address] Nucleated RBC (Bld) [#/Vol] 10*3/uL Normal <0.01 [facility] Comment on above: Order Comment: Speci men Type: BLOOD SPECIMENOrdering Facility: [facility] Address: [address] [place] [address] Performed By: #### 5 8410-2 ####[facility] LABORATORYCLIA [id number] STATES [facility] Platelet mean volume (Bld) [Entitic vol] 13.1 fL High 9.0-12.7 [facility] Comment on above: Order Comment: Speci men Type: BLOOD SPECIMENOrdering Facility: [facility] Address: [facility] [place] [address] Performed By: #### 5 8410-2 ####[facility] LABORATORYCLIA [id number] [address] [place] Platelets (Bld) [#/Vol] 233 10*3/uL Normal 150-400 [facility] Comment on above: Order Comment: Speci men Type: BLOOD SPECIMENOrdering Facility: [facility] Address: [address] [place] [address] Performed By: #### 5 8410-2 ####[facility]ORATORYCLIA [id number] [place] [address] [place] RBC (Bld) [#/Vol] 3.21 10*6/uL Low 3.90-5.20 [facility] Comment on above: Order Comment: Speci men Type: BLOOD SPECIMENOrdering Facility: [facility] Address: [address] [place] [address] Performed By: #### 5 8410-2 ####[facility] LABORATORYCLIA [id number] [address] [place] WBC (Bld) [#/Vol] 8.06 10*3/uL Normal 3.70-11.00 [facility] Comment on above: Order Comment: Speci men Type: BLOOD SPECIMENOrdering Facility: [facility] Address: [address] [place] [address] Performed By: #### 5 8410-2 ####[facility]ORATORYCLIA [id number] [address] [place] CONSULT PROGon 01-20-2025 CONSULT PROG Normal [facility] Comprehensive metabolic 2000 panelon 01-20-2025 Albumin [Mass/Vol] 3.2 g/dL Low 3.9-4.9 [facility] Comment on above: Order Comment: Speci men Type: BLOOD SPECIMENOrdering Facility: [facility] Address: [address] [place] [address] Performed By: #### 2 4323-8 ####[facility] LABORATORYCLIA [id number] [address] [place] ALP [Catalytic activity/Vol] 197 U/L High 34-123 [facility] Comment on above: Order Comment: Speci men Type: BLOOD SPECIMENOrdering Facility: [facility] Address: [address] [place] [address] Performed By: #### 2 4323-8 ####[facility] LABORATORYCLIA [id number] [address] STATES [facility] ALT With P-5'-P [Catalytic activity/Vol] 60 U/L High 7-38 [facility] Comment on above: Order Comment: Speci men Type: BLOOD SPECIMENOrdering Facility: [facility] Address: [address] [place] [address] Performed By: #### 2 4323-8 ####[facility] LABORATORYCLIA [id number] [address] [place] Anion gap [Moles/Vol] 10 mmol/L Normal 8-15 [facility] Comment on above: Order Comment: Speci men Type: BLOOD SPECIMENOrdering Facility: [facility] Address: [address] [place] [address] Performed By: #### 2 4323-8 ####[facility] LABORATORYCLIA [id number] [place] [address] [place] AST With P-5'-P [Catalytic activity/Vol] 32 U/L Normal 13-35 [facility] Comment on above: Order Comment: Speci men Type: BLOOD SPECIMENOrdering Facility: [facility] Address: [address] [place] [address] Performed By: #### 2 4323-8 ####[facility]ORATORYCLIA [id number] [place] [address] [place] Bilirubin [Mass/Vol] 3.1 mg/dL High 0.2-1.3 [facility] Comment on above: Order Comment: Speci men Type: BLOOD SPECIMENOrdering Facility: [facility] Address: [address] [place] [address] Performed By: #### 2 4323-8 ####[facility] LABORATORYCLIA [id number] [place] [address] [place] Calcium [Mass/Vol] 8.9 mg/dL Normal 8.5-10.2 [facility] Comment on above: Order Comment: Speci men Type: BLOOD SPECIMENOrdering Facility: [facility] Address: [address] [place] [address] Performed By: #### 2 4323-8 ####[facility] LABORATORYCLIA [id number] [place] [address] [place] Chloride [Moles/Vol] 102 mmol/L Normal 98-107 [facility] Comment on above: Order Comment: Speci men Type: BLOOD SPECIMENOrdering Facility: [facility] Address: [address] [place] [address] Performed By: #### 2 4323-8 ####[facility]ORATORYCLIA [id number] [place] [address] [place] CO2 [Moles/Vol] 23 mmol/L Normal 22-30 [facility] Comment on above: Order Comment: Speci men Type: BLOOD SPECIMENOrdering Facility: [facility] Address: [address] [place] [address] Performed By: #### 2 4323-8 ####[facility]ATORYCLIA [id number] [place] [address] [place] Creatinine [Mass/Vol] 0.65 mg/dL Normal 0.58-0.96 [facility] Comment on above: Order Comment: Speci men Type: BLOOD SPECIMENOrdering Facility: [facility] Address: [address] [place] [address] Performed By: #### 2 4323-8 ####[facility] LABORATORYCLIA [id number] [address] [place] Creatinine and Glomerular filtration rate.predicted panel (S/P/Bld) 87 mL/min/1.73m??? Normal >=60 [facility] Comment on above: Order Comment: Dayron stinson Type: BLOOD SPECIMENOrdering Facility: [facility] Address: [address] [place] [address] Result Comment: [place] mated Glomerular Filtration Rate [...] GFR. Performed By: #### 2 4323-8 ####[facility]ORATORYCLIA [id number] [place] [address] [place] Glucose [Mass/Vol] 232 mg/dL High 74-99 [facility] Comment on above: Order Comment: Dayron shantell Type: BLOOD SPECIMENOrdering Facility: [facility] Address: [address] [place] [address] Result Comment: The [place] Diabetes Association (ADA) provides guidance for cutoff [...] Standards of Medical Care in Diabetes 2016, [place] [employer]. Diabetes Care. 2016.39(Suppl 1). Performed By: #### 2 4323-8 ####[facility]ORATORYCLIA [id number] [place] [address] [place] Potassium [Moles/Vol] 4.1 mmol/L Normal 3.7-5.1 [facility] Comment on above: Order Comment: Speci men Type: BLOOD SPECIMENOrdering Facility: [facility] Address: [address] [place] [address] Performed By: #### 2 4323-8 ####[facility]ORATORYCLIA [id number] [place] [address] [place] Protein [Mass/Vol] 5.7 g/dL Low 6.3-8.0 [facility] Comment on above: Order Comment: Speci men Type: BLOOD SPECIMENOrdering Facility: [facility] Address: [address] [place] [address] Performed By: #### 2 4323-8 ####[facility] LABORATORYCLIA [id number] [address] STATES [facility] Sodium [Moles/Vol] 135 mmol/L Low 136-144 [facility] Comment on above: Order Comment: Speci men Type: BLOOD SPECIMENOrdering Facility: [facility] Address: [address] [place] [address] Performed By: #### 2 4323-8 ####[facility] LABORATORYCLIA [id number] [address] [place] Urea nitrogen [Mass/Vol] 14 mg/dL Normal 7-21 [facility] Comment on above: Order Comment: Speci men Type: BLOOD SPECIMENOrdering Facility: [facility] Address: [address] [place] [address] Performed By: #### 2 4323-8 ####[facility]ORATORYCLIA [id number] [place] [address] [place] ALLIED HEALTHon 01-19-2025 ALLIED HEALTH Normal [facility] CBC panel Auto (Bld)on 01-19 Erythrocyte distribution width (RBC) [Ratio] 15.8 % High 11.5-15.0 [facility] Comment on above: Order Comment: Speci men Type: BLOOD SPECIMENOrdering Facility: [facility] Address: [address] [place] [address] Performed By: #### 5 8410-2 ####[facility] LABORATORYCLIA [id number] [address] [place] Hematocrit (Bld) [Volume fraction] 30.9 % Low 36.0-46.0 [facility] Comment on above: Order Comment: Speci men Type: BLOOD SPECIMENOrdering Facility: [facility] Address: [address] [place] [address] Performed By: #### 5 8410-2 ####[facility] LABORATORYCLIA [id number] [address] [place] Hemoglobin (Bld) [Mass/Vol] 10.3 g/dL Low 11.5-15.5 [facility] Comment on above: Order Comment: Speci men Type: BLOOD SPECIMENOrdering Facility: [facility] Address: [address] [place] [address] Performed By: #### 5 8410-2 ####[facility] LABORATORYCLIA [id number] [address] MCH (RBC) [Entitic mass] 30.7 pg Normal 26.0-34.0 [facility] Comment on above: Order Comment: Speci men Type: BLOOD SPECIMENOrdering Facility: [facility] Address: [address] [place] [address] Performed By: #### 5 8410-2 ####[facility] LABORATORYCLIA [id number] [address] [place] MCHC (RBC) [Mass/Vol] 33.3 g/dL Normal 30.5-36.0 [facility] Comment on above: Order Comment: Speci men Type: BLOOD SPECIMENOrdering Facility: [facility] Address: [address] [place] [address] Performed By: #### 5 8410-2 ####[facility] LABORATORYCLIA [id number] [address] [place] MCV (RBC) [Entitic vol] 92.2 fL Normal 80.0-100.0 [facility] Comment on above: Order Comment: Speci men Type: BLOOD SPECIMENOrdering Facility: [facility] Address: [address] [place] [address] Performed By: #### 5 8410-2 ####[facility] LABORATORYCLIA [id number] [address] [place] Nucleated RBC (Bld) [#/Vol] 10*3/uL Normal <0.01 [facility] Comment on above: Order Comment: Speci men Type: BLOOD SPECIMENOrdering Facility: [facility] Address: [address] [place] [address] Performed By: #### 5 8410-2 ####[facility]ORATORYCLIA [id number] [address] [place] Platelet mean volume (Bld) [Entitic vol] 13.9 fL High 9.0-12.7 [facility] Comment on above: Order Comment: Speci men Type: BLOOD SPECIMENOrdering Facility: [facility] Address: [address] [place] [address] Performed By: #### 5 8410-2 ####[facility]ATORYCLIA [id number] [address] [place] Platelets (Bld) [#/Vol] 219 10*3/uL Normal 150-400 [facility] Comment on above: Order Comment: Speci men Type: BLOOD SPECIMENOrdering Facility: [facility] Address: [address] [place] [address] Performed By: #### 5 8410-2 ####[facility]ORATORYCLIA [id number] [address] [place] RBC (Bld) [#/Vol] 3.35 10*6/uL Low 3.90-5.20 [facility] Comment on above: Order Comment: Speci men Type: BLOOD SPECIMENOrdering Facility: [facility] Address: [address] [place] [address] Performed By: #### 5 8410-2 ####[facility] LABORATORYCLIA [id number] [place] [address] [place] WBC (Bld) [#/Vol] 9.47 10*3/uL Normal 3.70-11.00 [facility] Comment on above: Order Comment: Speci men Type: BLOOD SPECIMENOrdering Facility: [facility] Address: [address], [place] [address] Performed By: #### 5 8410-2 ####[facility] LABORATORYCLIA [id number] [place] [address] [facility] CNPNon 01-19-2025 CNPN Telephone (FAMNicoleWS) -- TELMA TINEO ([id number]) 1940 F Date Time Provider Department 01/19/25 [...] Tolu 3 CGM system. Please send to [facility] [place]. Please notify son once completed. Patient has been identified by name and birthdate. Duration of symptoms: N/A Person calling: son: Timothy Call patient at: on cell Was an appointment scheduled: No Closing statement: Results or non-symptom based questions: Thank you for calling [facility], your call will be returned within the next business day. Henok Mcmullen MD 01/19/2025 11:51 AM Signed Let them know rx sent. If there is anything else we can do please let us know Dahlia Guevara 01/19/2025 1:39 PM Signed Timothy, son called again and he stated that [facility] told him they can no longer bill medicare for diabetic CGM. They told him to have the prescriptions sent to [facility]. Please notify Timothy once sent. Henok Martinez MD 01/20/2025 10:28 AM Signed Rx sent Sameerlacy ShabnamPETE 01/20/2025 2:11 PM Signed Notified Timothy. Joana Retanay 01/25/2025 10:04 AM Signed Patient's son calling and states that the Tolu III systems. Son states that in order to get the supplies covered by insurance, the doctor must have a face to fact with [facility]. Juanis Schuster RN 01/25/2025 11:39 AM Signed [facility] calls to request most recent OV notes [...] - Blood-Glucose Meter,Continuous (FREESTYLE TOLU 3 READER) [facility] Use to check blood sugar at least [...] once daily. - Blood Pressure Test Kit-Large ([employer] ARM BP MONITOR) 1 Each once daily. 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 Normal [facility] CONSULT PROGon 01-19-2025 CONSULT PROG Normal [facility] Comprehensive metabolic 2000 panelon 01-19-2025 Albumin [Mass/Vol] 3.3 g/dL Low 3.9-4.9 [facility] Comment on above: Order Comment: Speci men Type: BLOOD SPECIMENOrdering Facility: [facility] Address: [address] [place] [address] Performed By: #### 2 4323-8 ####[facility]ORATORYCLIA [id number] [address] [place] ALP [Catalytic activity/Vol] 241 U/L High 34-123 [facility] Comment on above: Order Comment: Speci men Type: BLOOD SPECIMENOrdering Facility: [facility] Address: [address] [place] [address] Performed By: #### 2 4323-8 ####[facility]ORATORYCLIA [id number] [address] [place] ALT With P-5'-P [Catalytic activity/Vol] 78 U/L High 7-38 [facility] Comment on above: Order Comment: Speci men Type: BLOOD SPECIMENOrdering Facility: [facility] Address: [address] [place] [address] Performed By: #### 2 4323-8 ####[facility]ORATORYCLIA [id number] [address] [place] Anion gap [Moles/Vol] 10 mmol/L Normal 8-15 [facility] Comment on above: Order Comment: Speci men Type: BLOOD SPECIMENOrdering Facility: [facility] Address: [address] [place] [address] Performed By: #### 2 4323-8 ####[facility]ORATORYCLIA [id number] [address] [place] AST With P-5'-P [Catalytic activity/Vol] 38 U/L High 13-35 [facility] Comment on above: Order Comment: Speci men Type: BLOOD SPECIMENOrdering Facility: [facility] Address: [address] [place] [address] Performed By: #### 2 4323-8 ####[facility]ORATORYCLIA [id number] [place] [address] [place] Bilirubin [Mass/Vol] 3.8 mg/dL High 0.2-1.3 [facility] Comment on above: Order Comment: Speci men Type: BLOOD SPECIMENOrdering Facility: [facility] Address: [address] [place] [address] Performed By: #### 2 4323-8 ####[facility] LABORATORYCLIA [id number] [place] [address] [place] Calcium [Mass/Vol] 9.0 mg/dL Normal 8.5-10.2 [facility] Comment on above: Order Comment: Speci men Type: BLOOD SPECIMENOrdering Facility: [facility] Address: [address] [place] [address] Performed By: #### 2 4323-8 ####[facility]ORATORYCLIA [id number] [place] [address] [place] Chloride [Moles/Vol] 97 mmol/L Low 98-107 [facility] Comment on above: Order Comment: Speci men Type: BLOOD SPECIMENOrdering Facility: [facility] Address: [address] [place] [address] Performed By: #### 2 4323-8 ####[facility]ORATORYCLIA [id number] [place] [address] [place] CO2 [Moles/Vol] 23 mmol/L Normal 22-30 [facility] Comment on above: Order Comment: Speci men Type: BLOOD SPECIMENOrdering Facility: [facility] Address: [address] [place] [address] Performed By: #### 2 4323-8 ####[facility]ATORYCLIA [id number] [place] [address] [place] Creatinine [Mass/Vol] 0.62 mg/dL Normal 0.58-0.96 [facility] Comment on above: Order Comment: Speci men Type: BLOOD SPECIMENOrdering Facility: [facility] Address: [address] [place] [address] Performed By: #### 2 4323-8 ####[facility]ITALIA [id number] [address] [place] Creatinine and Glomerular filtration rate.predicted panel (S/P/Bld) 88 mL/min/1.73m??? Normal >=60 [facility] Comment on above: Order Comment: Elinorbertrand stinson Type: BLOOD SPECIMENOrdering Facility: [facility] Address: [address] [place] [address] Result Comment: Kya mated Glomerular Filtration Rate [...] GFR. Performed By: #### 2 4323-8 ####[facility] LABORATORYIA [id number] [place] [address] [place] Glucose [Mass/Vol] 262 mg/dL High 74-99 [facility] Comment on above: Order Comment: Dayron stinson Type: BLOOD SPECIMENOrdering Facility: [facility] Address: [address] [place] [address] Result Comment: The [place] Diabetes Association (ADA) provides guidance for cutoff [...] Standards of Medical Care in Diabetes 2016, [place] Diabetes Association. Diabetes Care. 2016.39(Suppl 1). Performed By: #### 2 4323-8 ####[facility]ATORYCLIA [id number] [place] [address] [place] Potassium [Moles/Vol] 3.7 mmol/L Normal 3.7-5.1 [facility] Comment on above: Order Comment: Speci men Type: BLOOD SPECIMENOrdering Facility: [facility] Address: [address] [place] [address] Performed By: #### 2 4323-8 ####[facility]ORATORYCLIA [id number] [place] [address] [place] Protein [Mass/Vol] 5.7 g/dL Low 6.3-8.0 [facility] Comment on above: Order Comment: Speci men Type: BLOOD SPECIMENOrdering Facility: [facility] Address: [address] [place] [address] Performed By: #### 2 4323-8 ####[facility]ATORYCLIA [id number] [place] [address] [place] Sodium [Moles/Vol] 130 mmol/L Low 136-144 [facility] Comment on above: Order Comment: Speci men Type: BLOOD SPECIMENOrdering Facility: [facility] Address: [address] [place] [address] Performed By: #### 2 4323-8 ####[facility]ORATORYCLIA [id number] [place] [address] [place] Urea nitrogen [Mass/Vol] 14 mg/dL Normal 7-21 [facility] Comment on above: Order Comment: Speci men Type: BLOOD SPECIMENOrdering Facility: [facility] Address: [address] [place] [address] Performed By: #### 2 4323-8 ####[facility]ORATORYCLIA [id number] [place] [address] [place] ALLIED HEALTHon 01-18-2025 ALLIED HEALTH Normal [facility] CASE MANAGEMon 01-18-2025 CASE MANAGEM Normal [facility] CBC panel Auto (Bld)on 01-18 Erythrocyte distribution width (RBC) [Ratio] 16.4 % High 11.5-15.0 [facility] Comment on above: Order Comment: Speci men Type: BLOOD SPECIMENOrdering Facility: [facility] Address: [address] [place] [address] Performed By: #### 5 8410-2 ####[facility] LABORATORYCLIA [id number] [address] [place] Hematocrit (Bld) [Volume fraction] 31.9 % Low 36.0-46.0 [facility] Comment on above: Order Comment: Speci men Type: BLOOD SPECIMENOrdering Facility: [facility] Address: [address] [place] [address] Performed By: #### 5 8410-2 ####[facility]ORATORYCLIA [id number] [address] [place] Hemoglobin (Bld) [Mass/Vol] 10.7 g/dL Low 11.5-15.5 [facility] Comment on above: Order Comment: Speci men Type: BLOOD SPECIMENOrdering Facility: [facility] Address: [address] [place] [address] Performed By: #### 5 8410-2 ####[facility]ORATORYCLIA [id number] [address] [place] MCH (RBC) [Entitic mass] 30.7 pg Normal 26.0-34.0 [facility] Comment on above: Order Comment: Speci men Type: BLOOD SPECIMENOrdering Facility: [facility] Address: [address] [place] [address] Performed By: #### 5 8410-2 ####[facility]ORATORYCLIA [id number] [address] [place] MCHC (RBC) [Mass/Vol] 33.5 g/dL Normal 30.5-36.0 [facility] Comment on above: Order Comment: Speci men Type: BLOOD SPECIMENOrdering Facility: [facility] Address: [address] [place] [address] Performed By: #### 5 8410-2 ####[facility]ORATORYCLIA [id number] [address] [place] MCV (RBC) [Entitic vol] 91.7 fL Normal 80.0-100.0 [facility] Comment on above: Order Comment: Speci men Type: BLOOD SPECIMENOrdering Facility: [facility] Address: [address] [place] [address] Performed By: #### 5 8410-2 ####[facility]ORATORYCLIA [id number] [address] Nucleated RBC (Bld) [#/Vol] 10*3/uL Normal <0.01 [facility] Comment on above: Order Comment: Speci men Type: BLOOD SPECIMENOrdering Facility: [facility] Address: [address] [place] [address] Performed By: #### 5 8410-2 ####[facility] LABORATORYCLIA [id number] [address] STATES [facility] Platelet mean volume (Bld) [Entitic vol] 14.1 fL High 9.0-12.7 [facility] Comment on above: Order Comment: Speci men Type: BLOOD SPECIMENOrdering Facility: [facility] Address: [address] [place] [address] Performed By: #### 5 8410-2 ####[facility]ORATORYCLIA [id number] [address] Platelets (Bld) [#/Vol] 207 10*3/uL Normal 150-400 [facility] Comment on above: Order Comment: Speci men Type: BLOOD SPECIMENOrdering Facility: [facility] Address: [address] [place] [address] Result Comment: No c lot detected. Performed By: #### 5 8410-2 ####[facility]ORATORYCLIA [id number] [address] [place] RBC (Bld) [#/Vol] 3.48 10*6/uL Low 3.90-5.20 [facility] Comment on above: Order Comment: Speci men Type: BLOOD SPECIMENOrdering Facility: [facility] Address: [address] [place] [address] Performed By: #### 5 8410-2 ####[facility]ORATORYCLIA [id number] [place] [address] [place] WBC (Bld) [#/Vol] 9.97 10*3/uL Normal 3.70-11.00 [facility] Comment on above: Order Comment: Speci men Type: BLOOD SPECIMENOrdering Facility: [facility] Address: [address] [place] [address] Performed By: #### 5 8410-2 ####[facility]ORATORYCLIA [id number] [address] [place] CONSULTon 01-18-2025 CONSULT Normal [facility] CONSULT Normal [facility] CONSULT PROGon 01-18-2025 CONSULT PROG Normal [facility] Comprehensive metabolic 2000 panelon 01-18-2025 Albumin [Mass/Vol] 3.2 g/dL Low 3.9-4.9 [facility] Comment on above: Order Comment: Speci men Type: BLOOD SPECIMENOrdering Facility: [facility] Address: [address] [place] [address] Performed By: #### 2 4323-8 ####[facility] LABORATORYCLIA [id number] [address] [place] ALP [Catalytic activity/Vol] 261 U/L High 34-123 [facility] Comment on above: Order Comment: Speci men Type: BLOOD SPECIMENOrdering Facility: [facility] Address: [address] [place] [address] Performed By: #### 2 4323-8 ####[facility] LABORATORYCLIA [id number] [place] [address] [place] ALT With P-5'-P [Catalytic activity/Vol] 88 U/L High 7-38 [facility] Comment on above: Order Comment: Speci men Type: BLOOD SPECIMENOrdering Facility: [facility] Address: [address] [place] [address] Performed By: #### 2 4323-8 ####[facility] LABORATORYCLIA [id number] [place] [address] [place] Anion gap [Moles/Vol] 14 mmol/L Normal 8-15 [facility] Comment on above: Order Comment: Speci men Type: BLOOD SPECIMENOrdering Facility: [facility] Address: [address] [place] [address] Performed By: #### 2 4323-8 ####[facility]ORATORYCLIA [id number] [place] [address] [place] AST With P-5'-P [Catalytic activity/Vol] 33 U/L Normal 13-35 [facility] Comment on above: Order Comment: Speci men Type: BLOOD SPECIMENOrdering Facility: [facility] Address: [address] [place] [address] Performed By: #### 2 4323-8 ####[facility] LABORATORYCLIA [id number] [place] [address] [place] Bilirubin [Mass/Vol] 4.8 mg/dL High 0.2-1.3 [facility] Comment on above: Order Comment: Speci men Type: BLOOD SPECIMENOrdering Facility: [facility] Address: [address] [place] [address] Performed By: #### 2 4323-8 ####[facility] LABORATORYCLIA [id number] [place] [address] [place] Calcium [Mass/Vol] 9.1 mg/dL Normal 8.5-10.2 [facility] Comment on above: Order Comment: Speci men Type: BLOOD SPECIMENOrdering Facility: [facility] Address: [address] [place] [address] Performed By: #### 2 4323-8 ####[facility]ORATORYCLIA [id number] [place] [address] [place] Chloride [Moles/Vol] 100 mmol/L Normal 98-107 [facility] Comment on above: Order Comment: Speci men Type: BLOOD SPECIMENOrdering Facility: [facility] Address: [address] [place] [address] Performed By: #### 2 4323-8 ####[facility] LABORATORYCLIA [id number] [address] [place] CO2 [Moles/Vol] 20 mmol/L Low 22-30 [facility] Comment on above: Order Comment: Speci men Type: BLOOD SPECIMENOrdering Facility: [facility] Address: [address] [place] [address] Performed By: #### 2 4323-8 ####[facility] LABORATORYCLIA [id number] [address] [place] Creatinine [Mass/Vol] 0.63 mg/dL Normal 0.58-0.96 [facility] Comment on above: Order Comment: Speci men Type: BLOOD SPECIMENOrdering Facility: [facility] Address: [address] [place] [address] Performed By: #### 2 4323-8 ####[facility] LABORATORYCLIA [id number] [address] Creatinine and Glomerular filtration rate.predicted panel (S/P/Bld) 88 mL/min/1.73m??? Normal >=60 [facility] Comment on above: Order Comment: Speci men Type: BLOOD SPECIMENOrdering Facility: [facility] Address: [address] [place] [address] Result Comment: Kya mated Glomerular Filtration Rate [...] GFR. Performed By: #### 2 4323-8 ####[facility] LABORATORYCLIA [id number] [address] [place] Glucose [Mass/Vol] 244 mg/dL High 74-99 [facility] Comment on above: Order Comment: Speci men Type: BLOOD SPECIMENOrdering Facility: [facility] Address: [address] [place] [address] Result Comment: The [place] Diabetes Association (ADA) provides guidance for cutoff [...] Standards of Medical Care in Diabetes 2016, [place] Diabetes Association. Diabetes Care. 2016.39(Suppl 1). Performed By: #### 2 4323-8 ####[facility]ORATORYCLIA [id number] [place] [address] [place] Potassium [Moles/Vol] 3.9 mmol/L Normal 3.7-5.1 [facility] Comment on above: Order Comment: [facility] Type: BLOOD SPECIMENOrdering Facility: [facility] Address: [address] [place] [address] Performed By: #### 2 4323-8 ####[facility] LABORATORYCLIA [id number] [place] [address] [place] Protein [Mass/Vol] 6.0 g/dL Low 6.3-8.0 [facility] Comment on above: Order Comment: Speci men Type: BLOOD SPECIMENOrdering Facility: [facility] Address: [address] [place] [address] Performed By: #### 2 4323-8 ####[facility] LABORATORYCLIA [id number] [place] [address] [place] Sodium [Moles/Vol] 134 mmol/L Low 136-144 [facility] Comment on above: Order Comment: Speci men Type: BLOOD SPECIMENOrdering Facility: [facility] Address: [address] [place] [address] Performed By: #### 2 4323-8 ####[facility] LABORATORYCLIA [id number] [address] STATES [facility] Urea nitrogen [Mass/Vol] 10 mg/dL Normal 7- [facility] Comment on above: Order Comment: Speci men Type: BLOOD SPECIMENOrdering Facility: [facility] Address: [address] [place] [address] Performed By: #### 2 4323-8 ####[facility] LABORATORYCLIA [id number] [place] [address] [place] MEDICAL EMERon 01-18-2025 MEDICAL SHARITA Normal [facility] NUTRITIONon 01-18-2025 NUTRITION Normal [facility] PT EDon 01-18-2025 PT ED Normal [facility] CBC panel Auto (Bld)on 01-17 Erythrocyte distribution width (RBC) [Ratio] 17.0 % High 11.5-15.0 [facility] Comment on above: Order Comment: Speci men Type: BLOOD SPECIMENOrdering Facility: [facility] Address: [address] [place] [address] Performed By: #### 5 8410-2 ####[facility] LABORATORYCLIA [id number] [address] STATES [facility]#### 76851-9 ####[facility]CL[facility] [id number] [address] [place] Hematocrit (Bld) [Volume fraction] 35.7 % Low 36.0-46.0 [facility] Comment on above: Order Comment: Speci men Type: BLOOD SPECIMENOrdering Facility: [facility] Address: [address] [place] [address] Performed By: #### 5 8410-2 ####[facility] LABORATORYCLIA [id number] [address] [place]#### [address]-2 ####[facility] LABCL[facility] [id number] [address] [place] Hemoglobin (Bld) [Mass/Vol] 11.7 g/dL Normal 11.5-15.5 [facility] Comment on above: Order Comment: Speci men Type: BLOOD SPECIMENOrdering Facility: [facility] Address: [address] [place] [address] Performed By: #### 5 8410-2 ####[facility] LABORATORYCLIA [id number] [address]#### [address]-9 ####[facility] LABCLIA [id number] [place] [address] [place] MCH (RBC) [Entitic mass] 30.0 pg Normal 26.0-34.0 [facility] Comment on above: Order Comment: Speci men Type: BLOOD SPECIMENOrdering Facility: [facility] Address: [address] [place] [address] Performed By: #### 5 8410-2 ####[facility] LABORATORYCLIA [id number] [address]#### [address]-5 ####[facility] LABCLIA [id number] [address] [place] MCHC (RBC) [Mass/Vol] 32.8 g/dL Normal 30.5-36.0 [facility] Comment on above: Order Comment: Speci men Type: BLOOD SPECIMENOrdering Facility: [facility] Address: [address] [place] [address] Performed By: #### 5 8410-2 ####[facility] LABORATORYCLIA [id number] [address] [place]#### [address]-3 ####[facility] LABCL[facility] [id number] [place] [address] [place] MCV (RBC) [Entitic vol] 91.5 fL Normal 80.0-100.0 [facility] Comment on above: Order Comment: Speci men Type: BLOOD SPECIMENOrdering Facility: [facility] Address: [address] [place] [address] Performed By: #### 5 8410-2 ####[facility]ORATORYCLIA [id number] [address] [place]#### 48038-6 ####[facility] LABCLIA [id number] [place] [address] [place] Nucleated RBC (Bld) [#/Vol] 10*3/uL Normal <0.01 [facility] Comment on above: Order Comment: Speci men Type: BLOOD SPECIMENOrdering Facility: [facility] Address: [address] [place] [address] Performed By: #### 5 8410-2 ####[facility] LABORATORYCLIA [id number] [address] [place]#### [address]666-7 ####[facility] LABCL[facility] [id number] [place] [address] [place] Platelet mean volume (Bld) [Entitic vol] 13.9 fL High 9.0-12.7 [facility] Comment on above: Order Comment: Speci men Type: BLOOD SPECIMENOrdering Facility: [facility] Address: [address] [place] [address] Performed By: #### 5 8410-2 ####[facility]ORATORYCLIA [id number] [address] [place]#### 13546-3 ####[facility] LABCL[facility] [id number] [place] [address] [place] Platelets (Bld) [#/Vol] 212 10*3/uL Normal 150-400 [facility] Comment on above: Order Comment: Speci men Type: BLOOD SPECIMENOrdering Facility: [facility] Address: [address] [place] [address] Result Comment: Plat elet count confirmed by manual review of peripheral blood smear. No clot detected. Performed By: #### 5 8410-2 ####[facility]ORATORYCLIA [id number] [address]#### 17808-4 ####[facility] LABCL[facility] [id number] [address] [address] [place] RBC (Bld) [#/Vol] 3.90 10*6/uL Normal 3.90-5.20 [facility] Comment on above: Order Comment: Speci men Type: BLOOD SPECIMENOrdering Facility: [facility] Address: [address] [place] [address] Performed By: #### 5 8410-2 ####[facility]ORATORYCLIA [id number] [address]#### [address]-3 ####[facility]CL[facility] [id number] [place] [address] [place] WBC (Bld) [#/Vol] 13.38 10*3/uL High 3.70-11.00 [facility] Comment on above: Order Comment: Speci men Type: BLOOD SPECIMENOrdering Facility: [facility] Address: [address] [place] [address] Performed By: #### 5 8410-2 ####[facility] LABORATORYCLIA [id number] [address]#### [address]-2 ####[facility] LABCLIA [id number] [place] [id number] [place] Comprehensive metabolic 2000 panelon 01-17-2025 Albumin [Mass/Vol] 3.7 g/dL Low 3.9-4.9 [facility] Comment on above: Order Comment: Speci men Type: BLOOD SPECIMENOrdering Facility: [facility] Address: [address] [place] [address] Performed By: #### 2 4323-8 ####[facility]ORATORYCLIA [id number] [place] [address] [place] ALP [Catalytic activity/Vol] 350 U/L High 34-123 [facility] Comment on above: Order Comment: Speci men Type: BLOOD SPECIMENOrdering Facility: [facility] Address: [address] [place] [address] Performed By: #### 2 4323-8 ####[facility]ORATORYCLIA [id number] [place] [address] [place] ALT With P-5'-P [Catalytic activity/Vol] 137 U/L High 7-38 [facility] Comment on above: Order Comment: Speci men Type: BLOOD SPECIMENOrdering Facility: [facility] Address: [address] [place] [address] Performed By: #### 2 4323-8 ####[facility] LABORATORYCLIA [id number] [address] [place] Anion gap [Moles/Vol] 19 mmol/L High 8-15 [facility] Comment on above: Order Comment: Speci men Type: BLOOD SPECIMENOrdering Facility: [facility] Address: [address] [place] [address] Performed By: #### 2 4323-8 ####[facility] LABORATORYCLIA [id number] [address] [place] AST With P-5'-P [Catalytic activity/Vol] 47 U/L High 13-35 [facility] Comment on above: Order Comment: Speci men Type: BLOOD SPECIMENOrdering Facility: [facility] Address: [address] [place] [address] Performed By: #### 2 4323-8 ####[facility]ORATORYCLIA [id number] [place] [address] [place] Bilirubin [Mass/Vol] 6.6 mg/dL High 0.2-1.3 [facility] Comment on above: Order Comment: Speci men Type: BLOOD SPECIMENOrdering Facility: [facility] Address: [address] [place] [address] Performed By: #### 2 4323-8 ####[facility] LABORATORYCLIA [id number] [place] [address] [place] Calcium [Mass/Vol] 9.5 mg/dL Normal 8.5-10.2 [facility] Comment on above: Order Comment: Speci men Type: BLOOD SPECIMENOrdering Facility: [facility] Address: [address] [place] [address] Performed By: #### 2 4323-8 ####[facility]ORATORYCLIA [id number] [place] [address] [place] Chloride [Moles/Vol] 95 mmol/L Low 98-107 [facility] Comment on above: Order Comment: Speci men Type: BLOOD SPECIMENOrdering Facility: [facility] Address: [address] [place] [address] Performed By: #### 2 4323-8 ####[facility]ORATORYCLIA [id number] [place] [address] [place] CO2 [Moles/Vol] 17 mmol/L Low 22-30 [facility] Comment on above: Order Comment: Speci men Type: BLOOD SPECIMENOrdering Facility: [facility] Address: [address] [place] [address] Performed By: #### 2 4323-8 ####[facility]ORATORYCLIA [id number] [place] [address] [place] Creatinine [Mass/Vol] 0.55 mg/dL Low 0.58-0.96 [facility] Comment on above: Order Comment: Speci men Type: BLOOD SPECIMENOrdering Facility: [facility] Address: [address] [place] [address] Performed By: #### 2 4323-8 ####[facility] LABORATORYCLIA [id number] [address] [place] Creatinine and Glomerular filtration rate.predicted panel (S/P/Bld) 91 mL/min/1.73m??? Normal >=60 [facility] Comment on above: Order Comment: Dayron stinson Type: BLOOD SPECIMENOrdering Facility: [facility] Address: [address] [place] [address] Result Comment: Kya mated Glomerular Filtration Rate [...] GFR. Performed By: #### 2 4323-8 ####[facility]ORATORYCLIA [id number] [place] [address] [place] Glucose [Mass/Vol] 276 mg/dL High 74-99 [facility] Comment on above: Order Comment: Dayron stinson Type: BLOOD SPECIMENOrdering Facility: [facility] Address: [address] [place] [address] Result Comment: The [place] Diabetes Association (ADA) provides guidance for cutoff [...] Standards of Medical Care in Diabetes 2016, [place] Diabetes Association. Diabetes Care. 2016.39(Suppl 1). Performed By: #### 2 4323-8 ####[facility]ORATORYCLIA [id number] [place] [address] [place] Potassium [Moles/Vol] 4.2 mmol/L Normal 3.7-5.1 [facility] Comment on above: Order Comment: Dayron stinson Type: BLOOD SPECIMENOrdering Facility: [facility] Address: [address] [place] [address] Performed By: #### 2 4323-8 ####[facility] LABORATORYCLIA [id number] [address] [place] Protein [Mass/Vol] 6.6 g/dL Normal 6.3-8.0 [facility] Comment on above: Order Comment: Speci men Type: BLOOD SPECIMENOrdering Facility: [facility] Address: [address] [place] [address] Performed By: #### 2 4323-8 ####[facility]ORATORYCLIA [id number] [address] [place] Sodium [Moles/Vol] 131 mmol/L Low 136-144 [facility] Comment on above: Order Comment: Speci men Type: BLOOD SPECIMENOrdering Facility: [facility] Address: [address] [place] [address] Performed By: #### 2 4323-8 ####[facility] LABORATORYCLIA [id number] [address] STATES [facility] Urea nitrogen [Mass/Vol] 11 mg/dL Normal 7-21 [facility] Comment on above: Order Comment: Speci men Type: BLOOD SPECIMENOrdering Facility: [facility] Address: [address] [place] [address] Performed By: #### 2 4323-8 ####[facility] LABORATORYCLIA [id number] [address] [place] HbA1c (Bld)on 01-17-2025 Average glucose Estimated from glycated hemoglobin (Bld) [Mass/Vol] 258 mg/dL Normal [facility] Comment on above: Order Comment: Speci men Type: BLOOD SPECIMENOrdering Facility: [facility] Address: [address] [place] [address] Result Comment: eAG: (Estimated average glucose) is a calculated value from HgbA1c and is medical service representative of the average blood glucose level in the last 2-3 month period. Performed By: #### 5 8410-2 ####[facility]ATORYCLIA [id number] [address] [place]#### 96384-4 ####[facility]CL[facility] [id number] [place] [address] [place] HbA1c (Bld) [Mass fraction] 10.6 % High 4.3-5.6 [facility] Comment on above: Order Comment: Speci men Type: BLOOD SPECIMENOrdering Facility: [facility] Address: [address] [place] [address] Result Comment: Amer [place] Diabetes Association guidelines indicate that patients with HgbA1c in the range 5.7-6.4% are at increased risk for development of diabetes, and intervention by lifestyle modification may be beneficial. HgbA1c greater or equal to 6.5% is considered diagnostic of diabetes. Performed By: #### 5 8410-2 ####[facility] LABORATORYCLIA [id number] [place] [address] [place]#### 86849-6 ####[facility]CL[facility] [id number] [place] [address] [place] ALLIED HEALTHon 01-16-2025 ALLIED HEALTH Normal [facility] CBC panel Auto (Bld)on 01-16 Erythrocyte distribution width (RBC) [Ratio] 16.8 % High 11.5-15.0 [facility] Comment on above: Order Comment: Speci men Type: BLOOD SPECIMENOrdering Facility: [facility] Address: [address] [place] [address] Performed By: #### 5 8410-2 ####[facility] LABORATORYCLIA [id number] [address] [place] Hematocrit (Bld) [Volume fraction] 36.9 % Normal 36.0-46.0 [facility] Comment on above: Order Comment: Speci men Type: BLOOD SPECIMENOrdering Facility: [facility] Address: [address] [place] [address] Performed By: #### 5 8410-2 ####[facility] LABORATORYCLIA [id number] [address] [place] Hemoglobin (Bld) [Mass/Vol] 12.4 g/dL Normal 11.5-15.5 [facility] Comment on above: Order Comment: Speci men Type: BLOOD SPECIMENOrdering Facility: [facility] Address: [address] [place] [address] Performed By: #### 5 8410-2 ####[facility] LABORATORYCLIA [id number] [address] STATES [facility] MCH (RBC) [Entitic mass] 29.7 pg Normal 26.0-34.0 [facility] Comment on above: Order Comment: Speci men Type: BLOOD SPECIMENOrdering Facility: [facility] Address: [address] [place] [address] Performed By: #### 5 8410-2 ####[facility]ORATORYCLIA [id number] [address] [place] MCHC (RBC) [Mass/Vol] 33.6 g/dL Normal 30.5-36.0 [facility] Comment on above: Order Comment: Speci men Type: BLOOD SPECIMENOrdering Facility: [facility] Address: [address] [place] [address] Performed By: #### 5 8410-2 ####[facility] LABORATORYCLIA [id number] [address] MCV (RBC) [Entitic vol] 88.5 fL Normal 80.0-100.0 [facility] Comment on above: Order Comment: Speci men Type: BLOOD SPECIMENOrdering Facility: [facility] Address: [address] [place] [address] Performed By: #### 5 8410-2 ####[facility] LABORATORYCLIA [id number] [address] Nucleated RBC (Bld) [#/Vol] 10*3/uL Normal <0.01 [facility] Comment on above: Order Comment: Speci men Type: BLOOD SPECIMENOrdering Facility: [facility] Address: [address] [place] [address] Performed By: #### 5 8410-2 ####[facility] LABORATORYCLIA [id number] [place] [address] [place] Platelet mean volume (Bld) [Entitic vol] 13.4 fL High 9.0-12.7 [facility] Comment on above: Order Comment: Speci men Type: BLOOD SPECIMENOrdering Facility: [facility] Address: [address] [place] [address] Performed By: #### 5 8410-2 ####[facility] LABORATORYCLIA [id number] [place] [address] [place] Platelets (Bld) [#/Vol] 210 10*3/uL Normal 150-400 [facility] Comment on above: Order Comment: Speci men Type: BLOOD SPECIMENOrdering Facility: [facility] Address: [address] [place] [address] Result Comment: Plat elet count confirmed by manual review of peripheral blood smear. No clot detected. Performed By: #### 5 8410-2 ####[facility] [id number] [place] [address] [place] RBC (Bld) [#/Vol] 4.17 10*6/uL Normal 3.90-5.20 [facility] Comment on above: Order Comment: Speci men Type: BLOOD SPECIMENOrdering Facility: [facility] Address: [address] [place] [address] Performed By: #### 5 8410-2 ####[facility] LABORATORYCLIA [id number] [place] [address] [place] WBC (Bld) [#/Vol] 13.14 10*3/uL High 3.70-11.00 [facility] Comment on above: Order Comment: Speci men Type: BLOOD SPECIMENOrdering Facility: [facility] Address: [address] [place] [address] Result Comment: Resu lts checked and verified. Performed By: #### 5 8410-2 ####[facility] LABORATORYCLIA [id number] [address] [place] CEA SerPl-mCncon 01-16-2025 Carcinoembryonic Ag [Mass/Vol] 4.6 ng/mL High <3.0 [facility] Comment on above: Order Comment: Dayron stinson Type: BLOOD SPECIMENOrdering Facility: [facility] Address: [address] [place] [address] Result Comment: This is a [employer] assay using chemiluminescence test methodology. Results determined by different manufacturers may not be comparable Performed By: #### 2 4108-3, 2039-03 ####[facility] LABORATORYCLIA [id number] [address] [place] CONSULTon 01-16-2025 CONSULT Normal [facility] CT CHEST WO IVCONon 01-17-20 CT CHEST WO IVCON Normal [facility] Cancer Ag19-9 SerPl-aCncon 0 01-16-2025 Cancer Ag 19-9 Qn 306.0 [arb'U]/mL High <36.0 A [facility] Comment on above: Order Comment: Dayron stinson Type: BLOOD SPECIMENOrdering Facility: [facility] Address: [address] [place] [address] Result Comment: Canc er antigen 19-9 test is used as an aid in monitoring response to treatment or recurrence in patients with established pancreatic, hepatobiliary, or gastrointestinal malignancies. Clinical correlation is required.The CA 19-9 test methodology used is the Electrochemiluminescence Immunoassay by [employer]. Results obtained with different methods or kits cannot be used interchangeably. Performed By: #### 2 4108-3, 2039-03 ####[facility] LABORATORYCLIA [id number] [place] [id number] [facility] [place] Comprehensive metabolic 2000 panelon 01-16-2025 Albumin [Mass/Vol] 3.8 g/dL Low 3.9-4.9 [facility] Comment on above: Order Comment: Dayron stinson Type: BLOOD SPECIMENOrdering Facility: [facility] Address: [address] [place] [address] Performed By: #### 2 4323-8 ####[facility] LABORATORYCLIA [id number] [place] [address] [place] ALP [Catalytic activity/Vol] 418 U/L High 34-123 [facility] Comment on above: Order Comment: Speci men Type: BLOOD SPECIMENOrdering Facility: [facility] Address: [address] [place] [address] Performed By: #### 2 4323-8 ####[facility] LABORATORYCLIA [id number] [address] [place] ALT With P-5'-P [Catalytic activity/Vol] 196 U/L High 7-38 [facility] Comment on above: Order Comment: Speci men Type: BLOOD SPECIMENOrdering Facility: [facility] Address: [address] [place] [address] Performed By: #### 2 4323-8 ####[facility] LABORATORYCLIA [id number] [address] [place] Anion gap [Moles/Vol] 17 mmol/L High 8-15 [facility] Comment on above: Order Comment: Speci men Type: BLOOD SPECIMENOrdering Facility: [facility] Address: [address] [place] [address] Performed By: #### 2 4323-8 ####[facility] LABORATORYCLIA [id number] [address] [place] AST With P-5'-P [Catalytic activity/Vol] 99 U/L High 13-35 [facility] Comment on above: Order Comment: Speci men Type: BLOOD SPECIMENOrdering Facility: [facility] Address: [address] [place] [address] Performed By: #### 2 4323-8 ####[facility] LABORATORYCLIA [id number] [place] [address] [place] Bilirubin [Mass/Vol] 10.2 mg/dL High 0.2-1.3 [facility] Comment on above: Order Comment: Speci men Type: BLOOD SPECIMENOrdering Facility: [facility] Address: [address] [place] [address] Performed By: #### 2 4323-8 ####[facility] LABORATORYCLIA [id number] [place] [address] [place] Calcium [Mass/Vol] 9.1 mg/dL Normal 8.5-10.2 [facility] Comment on above: Order Comment: Speci men Type: BLOOD SPECIMENOrdering Facility: [facility] Address: [address] [place] [address] Performed By: #### 2 4323-8 ####[facility] LABORATORYCLIA [id number] [place] [address] [place] Chloride [Moles/Vol] 93 mmol/L Low 98-107 [facility] Comment on above: Order Comment: Speci men Type: BLOOD SPECIMENOrdering Facility: [facility] Address: [address] [place] [address] Performed By: #### 2 4323-8 ####[facility] LABORATORYCLIA [id number] [place] [address] [place] CO2 [Moles/Vol] 19 mmol/L Low 22-30 [facility] Comment on above: Order Comment: Speci men Type: BLOOD SPECIMENOrdering Facility: [facility] Address: [address] [place] [address] Performed By: #### 2 4323-8 ####[facility] LABORATORYCLIA [id number] [place] [address] [place] Creatinine [Mass/Vol] 0.49 mg/dL Low 0.58-0.96 [facility] Comment on above: Order Comment: Speci men Type: BLOOD SPECIMENOrdering Facility: [facility] Address: [address] [place] [address] Performed By: #### 2 4323-8 ####[facility] LABORATORYCLIA [id number] [address] [place] Creatinine and Glomerular filtration rate.predicted panel (S/P/Bld) 93 mL/min/1.73m??? Normal >=60 [facility] Comment on above: Order Comment: Speci men Type: BLOOD SPECIMENOrdering Facility: [facility] Address: [address] [place] [address] Result Comment: Kya mated Glomerular Filtration Rate [...] GFR. Performed By: #### 2 4323-8 ####[facility] LABORATORYCLIA [id number] [place] [address] [place] Glucose [Mass/Vol] 258 mg/dL High 74-99 [facility] Comment on above: Order Comment: Dayron stinson Type: BLOOD SPECIMENOrdering Facility: [facility] Address: [address] [place] [address] Result Comment: The [employer] Diabetes Association (ADA) provides guidance for cutoff [...] Standards of Medical Care in Diabetes 2016, [employer]. Diabetes Care. 2016.39(Suppl 1). Performed By: #### 2 4323-8 ####[facility]ORATORYCLIA [id number] [place] [id number] [place] Potassium [Moles/Vol] 3.3 mmol/L Low 3.7-5.1 [facility] Comment on above: Order Comment: Dayron stinson Type: BLOOD SPECIMENOrdering Facility: [facility] Address: [address] [place] [address] Performed By: #### 2 4323-8 ####[facility] LABORATORYCLIA [id number] [place] [address] [place] Protein [Mass/Vol] 6.4 g/dL Normal 6.3-8.0 [facility] Comment on above: Order Comment: Speci men Type: BLOOD SPECIMENOrdering Facility: [facility] Address: [address] [place] [address] Performed By: #### 2 4323-8 ####[facility]ORATORYCLIA [id number] [place] [address] [place] Sodium [Moles/Vol] 129 mmol/L Low 136-144 [facility] Comment on above: Order Comment: Speci men Type: BLOOD SPECIMENOrdering Facility: [facility] Address: [address] [place] [address] Performed By: #### 2 4323-8 ####[facility] LABORATORYCLIA [id number] [place] [address] [place] Urea nitrogen [Mass/Vol] 7 mg/dL Normal 7 [facility] Comment on above: Order Comment: Speci men Type: BLOOD SPECIMENOrdering Facility: [facility] Address: [address] [place] [address] Performed By: #### 2 4323-8 ####[facility] LABORATORYCLIA [id number] [place] [address] [place] ANES POSTPROC EVALon [...] Comment: Speci men Type: BLOOD SPECIMENOrdering Facility: [facility] Address: [address] [place] [address] Performed By: #### 5 7021-8 ####[facility]ORATORYCLIA [id number] [place] [address] [place] Basophils/100 WBC (Bld) 0.8 % Normal [facility] Comment on above: Order Comment: Speci men Type: BLOOD SPECIMENOrdering Facility: [facility] Address: [address] [place] [address] Performed By: #### 5 7021-8 ####[facility]ORATORYCLIA [id number] [address] [place] Differential cell count method Nom (Bld) Auto Normal [facility] Comment on above: Order Comment: Speci men Type: BLOOD SPECIMENOrdering Facility: [facility] Address: [address] [place] [address] Performed By: #### 5 7021-8 ####[facility] LABORATORYCLIA [id number] [address] [place] Eosinophils (Bld) [#/Vol] 0.09 10*3/uL Normal <0.46 [facility] Comment on above: Order Comment: Speci men Type: BLOOD SPECIMENOrdering Facility: [facility] Address: [address] [place] [address] Performed By: #### 5 7021-8 ####[facility] LABORATORYCLIA [id number] [address] Eosinophils/100 WBC (Bld) 1.7 % Normal [facility] Comment on above: Order Comment: Speci men Type: BLOOD SPECIMENOrdering Facility: [facility] Address: [address] [place] [address] Performed By: #### 5 7021-8 ####[facility] LABORATORYCLIA [id number] [address] [place] Erythrocyte distribution width (RBC) [Ratio] 17.2 % High 11.5-15.0 [facility] Comment on above: Order Comment: Speci men Type: BLOOD SPECIMENOrdering Facility: [facility] Address: [address] [place] [address] Performed By: #### 5 7021-8 ####[facility]ORATORYCLIA [id number] [address] [place] Hematocrit (Bld) [Volume fraction] 31.2 % Low 36.0-46.0 [facility] Comment on above: Order Comment: Speci men Type: BLOOD SPECIMENOrdering Facility: [facility] Address: [address] [place] [address] Performed By: #### 5 7021-8 ####[facility] LABORATORYCLIA [id number] [address] [place] Hemoglobin (Bld) [Mass/Vol] 10.9 g/dL Low 11.5-15.5 [facility] Comment on above: Order Comment: Speci men Type: BLOOD SPECIMENOrdering Facility: [facility] Address: [address] [place] [address] Performed By: #### 5 7021-8 ####[facility] LABORATORYCLIA [id number] [address] [place] Immature granulocytes (Bld) [#/Vol] 0.03 10*3/uL Normal <0.10 [facility] Comment on above: Order Comment: Speci men Type: BLOOD SPECIMENOrdering Facility: [facility] Address: [address] [place] [address] Performed By: #### 5 7021-8 ####[facility] LABORATORYCLIA [id number] [address] [place] Immature granulocytes/100 WBC (Bld) 0.6 % Normal [facility] Comment on above: Order Comment: Speci men Type: BLOOD SPECIMENOrdering Facility: [facility] Address: [address] [place] [address] Performed By: #### 5 7021-8 ####[facility]ORATORYCLIA [id number] [address] [place] Lymphocytes (Bld) [#/Vol] 0.98 10*3/uL Low 1.00-4.00 [facility] Comment on above: Order Comment: Speci men Type: BLOOD SPECIMENOrdering Facility: [facility] Address: [address] [place] [address] Performed By: #### 5 7021-8 ####[facility] LABORATORYCLIA [id number] [address] Lymphocytes/100 WBC (Bld) 18.6 % Normal [facility] Comment on above: Order Comment: Speci men Type: BLOOD SPECIMENOrdering Facility: [facility] Address: [address] [place] [address] Performed By: #### 5 7021-8 ####[facility] LABORATORYCLIA [id number] [address] MCH (RBC) [Entitic mass] 30.8 pg Normal 26.0-34.0 [facility] Comment on above: Order Comment: Speci men Type: BLOOD SPECIMENOrdering Facility: [facility] Address: [address] [place] [address] Performed By: #### 5 7021-8 ####[facility] LABORATORYCLIA [id number] [address] STATES [facility] MCHC (RBC) [Mass/Vol] 34.9 g/dL Normal 30.5-36.0 [facility] Comment on above: Order Comment: Speci men Type: BLOOD SPECIMENOrdering Facility: [facility] Address: [address] [place] [address] Performed By: #### 5 7021-8 ####[facility] LABORATORYCLIA [id number] [address] [place] MCV (RBC) [Entitic vol] 88.1 fL Normal 80.0-100.0 [facility] Comment on above: Order Comment: Speci men Type: BLOOD SPECIMENOrdering Facility: [facility] Address: [address] [place] [address] Performed By: #### 5 7021-8 ####[facility] LABORATORYCLIA [id number] [address] Monocytes (Bld) [#/Vol] 0.65 10*3/uL Normal <0.87 [facility] Comment on above: Order Comment: Speci men Type: BLOOD SPECIMENOrdering Facility: [facility] Address: [address] [place] [address] Performed By: #### 5 7021-8 ####[facility]ORATORYCLIA [id number] [address] [place] Monocytes/100 WBC (Bld) 12.3 % Normal [facility] Comment on above: Order Comment: Speci men Type: BLOOD SPECIMENOrdering Facility: [facility] Address: [address] [place] [address] Performed By: #### 5 7021-8 ####[facility] LABORATORYCLIA [id number] [address] [place] Neutrophils (Bld) [#/Vol] 3.48 10*3/uL Normal 1.45-7.50 [facility] Comment on above: Order Comment: Speci men Type: BLOOD SPECIMENOrdering Facility: [facility] Address: [address] [place] [address] Performed By: #### 5 7021-8 ####[facility]ORATORYCLIA [id number] [address] [place] Neutrophils/100 WBC (Bld) 66.0 % Normal [facility] Comment on above: Order Comment: Speci men Type: BLOOD SPECIMENOrdering Facility: [facility] Address: [address] [place] [address] Performed By: #### 5 7021-8 ####[facility]ORATORYCLIA [id number] [place] [address] [place] Nucleated RBC (Bld) [#/Vol] 10*3/uL Normal <0.01 [facility] Comment on above: Order Comment: Speci men Type: BLOOD SPECIMENOrdering Facility: [facility] Address: [address] [place] [address] Performed By: #### 5 7021-8 ####[facility]ORATORYCLIA [id number] [address] [place] Nucleated RBC/100 WBC (Bld) [Ratio] 0.0 /100 WBC Normal [facility] Comment on above: Order Comment: Speci men Type: BLOOD SPECIMENOrdering Facility: [facility] Address: [address] [place] [address] Performed By: #### 5 7021-8 ####[facility] LABORATORYCLIA [id number] [address] [place] Platelet mean volume (Bld) [Entitic vol] Normal [facility] Comment on above: Order Comment: Speci men Type: BLOOD SPECIMENOrdering Facility: [facility] Address: [address] [place] [address] Result Comment: Unab le to Report. Performed By: #### 5 7021-8 ####[facility] LABORATORYCLIA [id number] [address] [place] Platelets (Bld) [#/Vol] 168 10*3/uL Normal 150-400 [facility] Comment on above: Order Comment: Speci men Type: BLOOD SPECIMENOrdering Facility: [facility] Address: [address] [place] [address] Result Comment: No c lot detected. Performed By: #### 5 7021-8 ####[facility]ORATORYCLIA [id number] [place] [address] [place] RBC (Bld) [#/Vol] 3.54 10*6/uL Low 3.90-5.20 [facility] Comment on above: Order Comment: Speci men Type: BLOOD SPECIMENOrdering Facility: [facility] Address: [address] [place] [address] Performed By: #### 5 7021-8 ####[facility] LABORATORYCLIA [id number] [address] [place] WBC (Bld) [#/Vol] 5.27 10*3/uL Normal 3.70-11.00 [facility] Comment on above: Order Comment: Speci men Type: BLOOD SPECIMENOrdering Facility: [facility] Address: [address] [place] [address] Performed By: #### 5 7021-8 ####[facility] LABORATORYCLIA [id number] [place] [address] [place] CONSULTon 01-15-2025 CONSULT Normal [facility] Comprehensive metabolic 2000 panelon 01-15-2025 Albumin [Mass/Vol] 3.5 g/dL Low 3.9-4.9 [facility] Comment on above: Order Comment: Speci men Type: BLOOD SPECIMENOrdering Facility: [facility] Address: [address] [place] [address] Performed By: #### 2 4323-8, ####[facility]ORATORYCLIA [id number] [address] [place] ALP [Catalytic activity/Vol] 393 U/L High 34-123 [facility] Comment on above: Order Comment: Speci men Type: BLOOD SPECIMENOrdering Facility: [facility] Address: [address] [place] [address] Performed By: #### 2 43238, ####[facility]ORATORYCLIA [id number] [address] [place] ALT With P-5'-P [Catalytic activity/Vol] Normal [facility] Comment on above: Order Comment: Speci men Type: BLOOD SPECIMENOrdering Facility: [facility] Address: [address] [place] [address] Result Comment: Unab le to assay due to interference from hemolysis. Suggest reorder as clinically indicated. Performed By: #### 2 4323-8, ####[facility]ORATORYCLIA [id number] [place] [id number] [place] Anion gap [Moles/Vol] 16 mmol/L High 8-15 [facility] Comment on above: Order Comment: Speci men Type: BLOOD SPECIMENOrdering Facility: [facility] Address: [address] [place] [address] Performed By: #### 2 4323-8, ####[facility]ORATORYCLIA [id number] [address] [place] AST With P-5'-P [Catalytic activity/Vol] Normal [facility] Comment on above: Order Comment: Speci men Type: BLOOD SPECIMENOrdering Facility: [facility] Address: [address] [place] [address] Result Comment: Unab le to assay due to interference from hemolysis. Suggest reorder as clinically indicated. Performed By: #### 2 4323-8, ####[facility]ORATORYCLIA [id number] [place] [address] [place] Bilirubin [Mass/Vol] 16.6 mg/dL High 0.2-1.3 [facility] Comment on above: Order Comment: Speci men Type: BLOOD SPECIMENOrdering Facility: [facility] Address: [address] [place] [address] Performed By: #### 2 4323-8, ####[facility]ORATORYCLIA [id number] [address] [place] Calcium [Mass/Vol] 9.2 mg/dL Normal 8.5-10.2 [facility] Comment on above: Order Comment: Speci men Type: BLOOD SPECIMENOrdering Facility: [facility] Address: [address] [place] [address] Performed By: #### 2 4323-8, ####[facility]ORATORYCLIA [id number] [place] [address] [place] Chloride [Moles/Vol] 102 mmol/L Normal 98-107 [facility] Comment on above: Order Comment: Speci men Type: BLOOD SPECIMENOrdering Facility: [facility] Address: [address] [place] [address] Performed By: #### 2 4323-8, ####[facility]ORATORYCLIA [id number] [place] [address] [place] CO2 [Moles/Vol] 16 mmol/L Low 22-30 [facility] Comment on above: Order Comment: Speci men Type: BLOOD SPECIMENOrdering Facility: [facility] Address: [address] [place] [id number] Performed By: #### 2 4323-8, ####[facility] SYSTEMCLIA [id number] [place] [id number] [place] Creatinine [Mass/Vol] 0.47 mg/dL Low 0.58-0.96 [facility] Comment on above: Order Comment: Speci men Type: BLOOD SPECIMENOrdering Facility: [facility] Address: [address] [place] [address] Performed By: #### 2 4323-8, ####[facility] HOSPITALIA [id number] [place] [id number] [facility] Creatinine and Glomerular filtration rate.predicted panel (S/P/Bld) 94 mL/min/1.73m??? Normal >=60 [facility] Comment on above: Order Comment: Speci men Type: BLOOD SPECIMENOrdering Facility: [facility] Address: [address] [place] [address] Result Comment: Kya mated Glomerular Filtration Rate [...] GFR. Performed By: #### 2 4323-8, ####[facility]ORATORYCLIA [id number] [place] [id number] [place] Glucose [Mass/Vol] 225 mg/dL High 74-99 [facility] Comment on above: Order Comment: Speci men Type: BLOOD SPECIMENOrdering Facility: [facility] Address: [address] [place] [address] Result Comment: The [place] Diabetes Association (ADA) provides guidance for cutoff [...] Standards of Medical Care in Diabetes 2016, [place] [employer]. Diabetes Care. 2016.39(Suppl 1). Performed By: #### 2 4323-8, ####[facility]ORATORYCLIA [id number] [place] [address] [place] Potassium [Moles/Vol] Normal [facility] Comment on above: Order Comment: Speci men Type: BLOOD SPECIMENOrdering Facility: [facility] Address: [address] [place] [address] Result Comment: Unab le to assay due to interference from hemolysis. Suggest reorder as clinically indicated. Performed By: #### 2 43201-02, ####[facility]ORATORYCLIA [id number] [place] [address] [place] Protein [Mass/Vol] Normal [facility] Comment on above: Order Comment: Speci men Type: BLOOD SPECIMENOrdering Facility: [facility] Address: [address] [place] [address] Result Comment: Unab le to assay due to interference from icterus. Performed By: #### 2 43201-02, ####[facility]ORATORYCLIA [id number] [place] [id number] [place] Sodium [Moles/Vol] 134 mmol/L Low 136-144 [facility] Comment on above: Order Comment: Speci men Type: BLOOD SPECIMENOrdering Facility: [facility] Address: [address] [place] [address] Performed By: #### 2 43201-02, ####[facility]ORATORYCLIA [id number] [place] [address] [place] Urea nitrogen [Mass/Vol] 11 mg/dL Normal 7-21 [facility] Comment on above: Order Comment: Speci men Type: BLOOD SPECIMENOrdering Facility: [facility] Address: [address] [place] [address] Performed By: #### 2 4323-8, 65285-8 ####[facility]ORATORYCLIA [id number] [place] [id number] [place] ECG COMPLETEon 01-15-2025 ECG COMPLETE Normal [facility] ERCPon 01-15-2025 ERCP Normal [facility] HISTORY PHYSICALon HISTORY PHYSICAL Normal [facility] Magnesium SerPl-mCncon 01-15 Magnesium [Mass/Vol] 2.0 mg/dL Normal 1.7-2.3 [facility] Comment on above: Order Comment: Dayron stinson Type: BLOOD SPECIMENOrdering Facility: [facility] Address: [address] [place] [address] Performed By: #### 2 4323-8, 04381-5 ####[facility] LABORATORYCLIA [id number] [address] [place] PT panel Coag (PPP)on 2024 INR Coag (PPP) [Relative time] 1.0 {INR} Normal 0.9-1.3 [facility] Comment on above: Order Comment: Dayron stinson Type: BLOOD SPECIMENOrdering Facility: [facility] Address: [address] [place] [address] Result Comment: Aria min K Antagonist (VKA) Therapeutic Range: INR 2 to 3 (Target INR of 2.5)Note: For patients treated with VKA drugs, such as warfarin, the [employer] 2012 Guideline recommends [...] of 2.5 to 3.5 (target INR of 3).Ann GH, et al. Chest 2012, 141:7S-47SNishimsupriya RA, et al. JACC 2017, 70: 252-289 Performed By: #### 3 4528-0 ####[facility] SYSTEMCLIA [id number] [address] [place] PT Coag (PPP) [Time] 11.3 s Normal 9.7-13.0 [facility] Comment on above: Order Comment: Speci men Type: BLOOD SPECIMENOrdering Facility: [facility] Address: [address] [place] [address] Performed By: #### 3 4528-0 ####[facility] H[facility]PITALIA [id number] [address] Pathology biopsy report Jimenez (Tiss)on 01-15-2025 AP DISCLAIMER Normal [facility] Comment on above: Order Comment: Speci men Type: TISSUE SPECIMENOrdering Facility: [facility] Address: [address] [place] [address] Result Comment: Christina burr Developed Test (LDT) Disclaimer:Performance characteristics of immunohistochemical, immunofluorescent, and chromogenic in-situ hybridization tests have been determined by the performing laboratory within [facility] Pathology and Laboratory Medicine Department ([facility], [facility], [facility], [facility], [facility], [facility], or [facility]) in a manner consistent with CLIA requirements. One or more of these tests may not have been cleared or approved by the FDA. [facility] is regulated under CLIA as qualified to perform high-complexity testing. These tests are used for clinical purposes. These should not be regarded as investigational or for research. Positive and negative controls stain appropriately. Performed By: #### 6 6121-5 ####[facility] LABORATORYIA [id number] [address] CASE REPORT Normal [facility] Comment on above: Order Comment: Speci men Type: TISSUE SPECIMENOrdering Facility: [facility] Address: [address] [place] [address] Result Comment: Surg ical Pathology Report Case: [id number] Provider: Adrián Sandhu MD Collected: 01/15/2025 12:41 PMOrdering Location: [facility] Received: 01/18/2025 09:31 AMPathologist: Orestes Zarate MDSpecimen: Pancreas, Biopsy, pancreas mass via FNA Performed By: #### 6 6121-5 ####[facility]ATORYCLIA [id number] [address] DIAGNOSIS COMMENT The case was reviewe d by Dr. Rachel Gallardo who agrees with the diagnosis. Normal [facility] Comment on above: Order Comment: Speci men Type: TISSUE SPECIMENOrdering Facility: [facility] Address: [address] [place] [address] Performed By: #### 6 6121-5 ####[facility]ORATORYCLIA [id number] [address] FINAL DIAGNOSIS Normal [facility] Comment on above: Order Comment: Speci men Type: TISSUE SPECIMENOrdering Facility: [facility] Address: [address] [place] [address] Result Comment: A. P ancreas, mass, biopsy:- Adenocarcinoma (see comment). at 1408 EDT Performed By: #### 6 6121-5 ####[facility] LABORATORYCLIA [id number] [address] FINAL PERFORMING LAB Normal [facility] Comment on above: Order Comment: Speci men Type: TISSUE SPECIMENOrdering Facility: [facility] Address: [address] [place] [address] Result Comment: Diag nostic interpretation performed at: [facility], [address] [place] [address] CLIA# [id number] Director: Keenan Multani MD Performed By: #### 6 6121-5 ####[facility]ORATORYCLIA [id number] [address] GROSS DESCRIPTION [facility] Comment on above: Order Comment: Speci men Type: TISSUE SPECIMENOrdering Facility: [facility] Address: [address], [place] [address] Result Comment: Dina golden, BiopsyReceived in formalin labeled pancreas massmultiple segments of cylindrical tissue aggregating to 3.0 x 2.0 x 1.0 cm, davalos-red and of a soft consistency. Totally submitted in one cassette.Gross examination performed at [facility], [address] [place], [place] [address]NCS January 18, 2025 12:19 PM Performed By: #### 6 6121-5 ####[facility] LABORATORYCLIA [id number] [place] [address] [place] XR ERCP READ ONLYon 01-16-20 XR ERCP READ ONLY Normal [facility] Bedside Glucoseon 01-14-2025 FINGERSTICK GLU 417 mg/dL High 74-106 [facility] Comment on above: Result Comment: JILLIAN GEMENT OF PATIENT CARE PER NURSING PROTOCOL Performed By: #### L 501.080 ####[facility] [address] [facility] [address] FINGERSTICK GLU 282 mg/dL High 74-106 [facility] Comment on above: Result Comment: JILLIAN GEMENT OF PATIENT CARE PER NURSING PROTOCOL Performed By: #### L 501.080 ####[facility] [address] [facility] [address] FINGERSTICK GLU 284 mg/dL High 74-106 [facility] Comment on above: Result Comment: JILLIAN GEMENT OF PATIENT CARE PER NURSING PROTOCOL Performed By: #### L 501.080 ####[facility] [address] [facility] [address] FINGERSTICK GLU 241 mg/dL High -106 [facility] Comment on above: Result Comment: JILLIAN GEMENT OF PATIENT CARE PER NURSING PROTOCOL Performed By: #### L 501.080 #### [facility] Laboratory [address] [place] [id number] Gl[facility] at [facility] deOrdered By: Jose Wu on 01-14-2025 [facility] 417 mg/dL High [address] [place] [address] Comment on above: MANAGEMENT OF PATIEN T CARE PER NURSING PROTOCOL Bedside Glucoseon 01-13-2025 FINGERSTICK GLU 314 mg/dL High [address] [place] [address] Comment on above: Result Comment: JILLIAN GEMENT OF PATIENT CARE PER NURSING PROTOCOL Performed By: #### L 501.080 #### [facility] Laboratory [address] [place], [address] FINGERSTICK GLU 356 mg/dL High [address] [place] [address] Comment on above: Result Comment: JILLIAN GEMENT OF PATIENT CARE PER NURSING PROTOCOL Performed By: #### L 501.080 #### [facility] Laboratory [address] [place], [address] FINGERSTICK GLU 302 mg/dL High [address] [place] [address] Comment on above: Result Comment: JILLIAN GEMENT OF PATIENT CARE PER NURSING PROTOCOL Performed By: #### L 501.080 #### [facility] Laboratory [address] [place], [address] FINGERSTICK GLU 278 mg/dL [address] Comment on above: Result Comment: JILLIAN GEMENT OF PATIENT CARE PER NURSING PROTOCOL Performed By: #### L 501.080 #### [facility] Laboratory [address] [place], [address] 12 Lead EKGon 01-12-2025 12 Lead EKG [facility] Cardiovascular Services [address] [place] [address] 12 Lead EKG 01/12/25 0442 MR#: [id number] Acct: [id number] Name: TELMA TINEO Rep #: [id number] : 1940 84 From: Zachary Sarabia MD Attending Dr: Dr. Jose Wu, DO Status: A DM IN Ordering Dr: [...] normal variant ( R in aVL , [place] product ) ST T wave abnormality, consider anterior ischemia Abnormal ECG When compared with ECG of 25-Jun-2024 15:29, QT has lengthened Confirmed by CORNELL HELMS, ZACHARY ([id number]), editor in chief CARLOS HARRIS ([id number]) on 01/12/2025 8:23:00 AM Referred By: DENNIS Confirmed By: ZACHARY SARABIA MD 01/12/25 0823 Date Zachary Sarabia MD CC: Dr. Babatunde Worthington MD; Dr. Jose Wu DO; Dr. Henok Martinez MD Signed Normal [facility] Bedside Glucoseon 01-12-2025 FINGERSTICK GLU 397 mg/dL High 74-106 [facility] Comment on above: Result Comment: JILLIAN GEMENT OF PATIENT CARE PER NURSING PROTOCOL Performed By: #### L 501.080 #### [facility] Laboratory [address] [place], [address] FINGERSTICK GLU 214 mg/dL High 74-106 [facility] Comment on above: Result Comment: JILLIAN GEMENT OF PATIENT CARE PER NURSING PROTOCOL Performed By: #### L 501.080 #### [facility] Laboratory [address] [place], [address] FINGERSTICK GLU 258 mg/dL High 74-106 [facility] Comment on above: Result Comment: JILLIAN GEMENT OF PATIENT CARE PER NURSING PROTOCOL Performed By: #### L 501.080 #### [facility] Laboratory [address] [place], [place], [address] CA 19-9 Serial Monitoron CA 19-9 355 U/mL High 0-35 [facility] Comment on above: Result Comment: [employer] Electrochemiluminescence Immunoassay (ECLIA) Values obtained with different assay methods or kits cannot be used interchangeably. Results cannot be interpreted as absolute evidence of the presence or absence of malignant disease. Performed at: [address] [id number] Landscaping Manager: Barry Hart PhD, Phone: [phone] Performed By: #### L 501.080 #### [facility] Laboratory [address] [place], [place], [id number] ERCP Biliary/Pancreason 12-26 ERCP Biliary/Pancreas [facility] Imaging Services [address] [place], [place] [address] ERCP Biliary/Pancreas MR#: [id number] Acct: [id number] Name: TELMA TINEO Rep #: [id number] : 1940 F 84 From: Raj farley MD PCP: Dr. Henok Martinez MD Status: ADM IN Study: ERCP Biliary/Pancreas Date of Exam: 01/12/25 Exam# [id number] Ordering Dr: Mohit Brown DO PROCEDURE: ERCP BILIARY/PANCREAS 01/12/2025 REASON FOR EXAM: PAIN. ERCP WITH SPY? TECHNIQUE: Fluoroscopic services provided for ERCP. Fluoroscopic time: 110.7 seconds 22.5 mGy 3 images were submitted. COMPARISON: None. FINDINGS: The referral rn performed the ERCP. Fluoroscopic imaging provided. RAD/ERCP Biliary/Pancreas IMPRESSION: Fluoroscopic services provided for ERCP. Reading Location: [place] [address] CC: Dr. Henok Martinez MD; Mohit Brown DO Seam Steamer: Signed Normal [facility] ERCP Reporton 01-12-2025 ERCP Report [facility] [address] [place] [address] ERCP Report MR#: [id number] Acct: [id number] Name: TELMA TINEO Rep #: [id number] : 1940 84 From: Mohit Brown DO [...] hour 8 minutes 42 seconds Findings: The pharmacist helper film was normal. The bile duct could not be cannulated with the short-nosed traction sphincterotome. No biopsies or other specimens were collected for this exam. Impression: - No specimens collected. Procedure Code(s): --- Professional --- 45050, Esophagogastroduodenoscopy , flexible, transoral; diagnostic, including collection of specimen(s) by brushing or washing, when performed (separate procedure) CPT copyright 2021 [employer]. All rights reserved. The codes documented in this report are preliminary and upon casting machine service operator review may be revised to meet current compliance requirements. Mohit Brown DO 01/12/2025 1:41:52 PM This report has been signed electronically. Number of Addenda: 0 Note Initiated On: 01/12/2025 11:51 AM 01/12/25 1342 Date Mohit Brown DO Cosigner Signature: Date (if indicated) CC: Dr. Henok Martinez MD; Mohit Brown DO Date Dictated: 01/12/25 1151 Date Transcribed: Seam Steamer: MARTHA Signed Normal [facility] Electrocardiogram reportOrde red By: Zachary Sarabia on 01-12-2025 EKG study [facility] Cardiovascular Services [address] [place] [address] 12 Lead EKG 01/12/25 0442 MR#: [id number] Acct: [id number] Name: TELMA TINEO Rep #:[id number] : 1940 84 From: Zachary Sarabia MD [...] normal variant ( R in aVL , [place] product ) ST & T wave abnormality, consider anterior ischemia Abnormal ECG When compared with ECG of 25-Jun-2024 15:29, QT has lengthened Confirmed by CORNELL HELMS, ZACHARY ([id number]), editor in chief CARLOS HARRIS ([id number]) on 01/12/2025 8:23:00 AM Referred By: DENNIS Confirmed By: ZACHARY SARABIA MD 01/12/25 0823 Date _ Zachary Sarabia MD CC: Dr. Babatunde Worthington MD; Dr. Jose Wu DO; Dr. Henok Martinez MD ~ Signed [facility] Work Phone: MR/POSTOP.Diego 01-12-2025 MR/POSTOP.[facility] Medical Records Department [address] [place] [address] Anesthesia Postop Eval I 01/12/25 1348 MR#: [id number] Acct: [id number] Name: TELMA TINEO Rep #: [id number] : 1940 84 From: Jr Kamara CRNA PCP: Dr. Henok Martinez MD Status:ADM IN Y Race: H Location: MS3 [id number] Anesthesia: Postop Eval I Current Vital Signs Temperature: 97.7 F Pulse Rate: 81 Blood Pressure: 143/77 Respiratory Rate: 16 Pulse Ox: 96 Assessment Airway patent: Yes Spontaneous unlabored respirations: Yes nausea: No Vomiting: No Anesthesia Complication: No Fluid Hydration Crystalloid volume administer (ml): 1,000 Total IV fluid infused: 1,000 Progress Note Anesthesia document: Postop Eval 1 completed: Yes 01/12/25 1348 Date Jr Kamara ADMISSIONS CLERK Cosigner Signature: Date CC: Signed Normal [facility] MR/[id number] 01-12-2025 MR/POSTOPAN2 [facility] Medical Records Department [address] [place] [address] Anesthesia Postop Eval II 01/12/25 1408 MR#: [id number] Acct: [id number] Name: TELMA TINEO Rep #: [id number] : 1940 84 From: José Escobar MD PCP: Dr. Henok Martinez MD Status:ADM IN Y Race: H Location: [facility] CT951-5 Anesthesia Postop Eval I Sum Postop Eval Completion status Anesthesia document: Postop Eval 1 completed: Yes Anesthesia Postop Eval I Summary Anesthesia Postop Eval I Summary: Anesthesia Postop Eval I: Assessment Summary Airway patent Yes 01/12/25 13:48 ADMISSIONS [email or web address].[email or web address] Spontaneous unlabored Yes 01/12/25 13:48 ADMISSIONS CLERK.TNES respirations Mental status nausea No 01/12/25 13:48 ADMISSIONS CLERK.TNES Vomiting No 01/12/25 13:48 ADMISSIONS CLERK.TNES Anesthesia Postop Eval I: Fluid Summary Crystalloid volume administer 1,000 01/12/25 13:48 ADMISSIONS CLERK.TNES (ml) Colloids volume administered ( ml) Blood Product volume administered (ml) Total IV fluid infused 1,000 01/12/25 13:48 ADMISSIONS CLERK.TNES Anesthesia Postop Eval I: Summary Notes Anesthesia Complication No 01/12/25 13:48 ADMISSIONS CLERK.TNES Anesthesia Complication Comment: Post-operative progress note Anesthesia: Postop Eval II Evaluation Mental status: Awake Pain Level: 0 nausea: No Vomiting: No Complications Anesthesia Complication: No 01/12/25 1408 Date José Lui Signature: Date CC: Signed Normal [facility] Absolute neutrophil countOrd ered By: Keenan Celeste on 01-11-2025 Neutrophils (Bld) [#/Vol] 3.1 10*3/uL 2.0-7.7 [facility] Anion gap in Serum or Plasma Ordered By: Keenan Celeste on 01-11-2025 Anion gap [Moles/Vol] 13 mmol/L 5- [facility] BUN/creatinine ratioOrdered By: Keenan Celeste on 01-11-2025 Urea nitrogen/Creatinine [Mass ratio] 10.8 mg/mg 10- [facility] Comment on above: Previous reported re sult: 10.0 RATIOEdited by: AUTOINS on 01/11/25:1445 AMENDED REPORT 01/11/25 1445 BUN/CRE previously reported as: 10.0 RATIO Basophil percentageOrdered B y: Keenan Celeste on 01-11-2025 Basophils/100 WBC (Bld) 0.6 % 0-1 [facility] Bedside Glucoseon 01-11-2025 FINGERSTICK GLU 411 mg/dL High [address] Comment on above: Result Comment: JILLIAN GEMENT OF PATIENT CARE PER NURSING PROTOCOL Performed By: #### L 501.080 #### [facility] Laboratory [address] [place], [place], [address] FINGERSTICK GLU 414 mg/dL High [address] [place] [address] Comment on above: Result Comment: JILLIAN GEMENT OF PATIENT CARE PER NURSING PROTOCOL Performed By: #### L 501.080 #### [facility] Laboratory [address] [place], [address] FINGERSTICK GLU 269 mg/dL High 74-106 [facility] Comment on above: Result Comment: JILLIAN MOFFETT OF PATIENT CARE PER NURSING PROTOCOL Performed By: #### L 501.080 #### [facility] Laboratory [address] [place], [address] Bilirubin, totalOrdered By: Keenan Celeste on 01-11-2025 Bilirubin [Mass/Vol] 10.20 mg/dL High 0.00-1.[address] [facility] Comment on above: Previous reported re sult: 10.00 mg/dLEdited by: BRIDGER on 01/11/25:1445 AMENDED REPORT 01/11/25 1445 T BILI previously reported as: 10.00 H mg/dL CBC W/Diff, Automatedon 12-26 Absolute Lymph 1.14 X10 3/uL Normal 0.83-4.51 [facility] Comment on above: Performed By: #### L 501.080 #### [facility] Laboratory [address] [place], [address] Absolute Neut 3.1 X10 3/uL Normal 2.0-7.7 [facility] Comment on above: Performed By: #### L 501.080 #### [facility] Laboratory [address] [place], [address] Basophils/100 WBC (Bld) 0.6 % Normal 0-1 [facility] Comment on above: Performed By: #### L 501.080 #### [facility] Laboratory [address] [place], [address] Eosinophils/100 WBC (Bld) 2.4 % Normal 0-5 [facility] Comment on above: Performed By: #### L 501.080 #### [facility] Laboratory [address] [place], [address] Erythrocyte distribution width (RBC) [Ratio] 15.1 % High 11.6-14.6 [facility] Comment on above: Performed By: #### L 501.080 #### [facility] Laboratory [address] [place], [address] Hematocrit (Bld) [Volume fraction] 34.2 % Low 37-47 [facility] Comment on above: Performed By: #### L 501.080 #### [facility] Laboratory [address] [place], [address] Hemoglobin (Bld) [Mass/Vol] 11.7 g/dL Low 12.0-15.0 [facility] Comment on above: Performed By: #### L 501.080 #### [facility] Laboratory [address] [place], [address] IG% 0.400 Normal 0.0-0.9 [facility] Comment on above: Result Comment: IG% - Immature Granulocytes (promyelocytes, myelocytes and metamyelocytes) > 1% indicates that a LEFT SHIFT is Present. Performed By: #### L 501.080 #### [facility] Laboratory [address] [place], [address] Lymphocytes/100 WBC (Bld) 22.9 % Normal 19-41 [facility] Comment on above: Performed By: #### L 501.080 #### [facility] Laboratory [address] [place], [address] MCH (RBC) [Entitic mass] 29.7 pg Normal 27.0-32.0 [facility] Comment on above: Performed By: #### L 501.080 #### [facility] Laboratory [address] [place], [address] MCHC (RBC) [Mass/Vol] 34.2 g/dL Normal 32-[address] [facility] Comment on above: Performed By: #### L 501.080 #### [facility] Laboratory [address] [place], [address] MCV (RBC) [Entitic vol] 86.8 fL Normal 81-99 [facility] Comment on above: Performed By: #### L 501.080 #### [facility] Laboratory [address] [place], [address] Monocytes/100 WBC (Bld) 11.6 % High 0-10 [facility] Comment on above: Performed By: #### L 501.080 #### [facility] Laboratory [address] [place], [address] Neutrophils/100 WBC (Bld) 62.1 % Normal 47-70 [facility] Comment on above: Performed By: #### L 501.080 #### [facility] Laboratory [address] [place], [address] Nucleated RBC (Bld) [#/Vol] 0 10*3/uL Normal 0-5 [facility] Comment on above: Performed By: #### L 501.080 #### [facility] Laboratory [address] [place], [address] Platelet mean volume (Bld) [Entitic vol] 13.7 fL High 6.2-12.0 [facility] Comment on above: Performed By: #### L 501.080 #### [facility] Laboratory [address] [place], [address] Platelets (Bld) [#/Vol] 169 10*3/uL Normal 150-450 [facility] Comment on above: Performed By: #### L 501.080 #### [facility] Laboratory [address] [place], [address] RBC (Bld) [#/Vol] 3.94 10*6/uL Low 4.2-5.4 [facility] Comment on above: Performed By: #### L 501.080 #### [facility] Laboratory [address] [place], [address] RDW SD 47.8 fl High 35.1-43.9 [facility] Comment on above: Performed By: #### L 501.080 #### [facility] Laboratory [address] [place], [place], [address] WBC (Bld) [#/Vol] 5.0 10*3/uL Normal 4.4-11.0 [facility] Comment on above: Performed By: #### L 501.080 #### [facility] Laboratory [address] [place], [address] Carbon dioxide, total [Moles /volume] in Central venous bloodOrdered By: Keenan Celeste on 01-11-2025 CO2 [Moles/Vol] 20.0 mmol/L Low 21.0-32.0 [facility] Comment on above: Previous reported re sult: 19.6 mmol/LEdited by: KARENS on 01/11/25:1445 AMENDED REPORT 01/11/251444 CO2 previously reported as: 19.6 L mmol/L Chloride assayOrdered By: Jose Celeste on 01-11-2025 Chloride [Moles/Vol] 103 mmol/L 98-108 [facility] Comment on above: Previous reported re sult: 104 mmol/LEdited by: AUTOINS on 01/11/25:1445 AMENDED REPORT 01/11/25 1445 CL previously reported as: 104 mmol/L Comprehensive Metabolic Prof ilon 01-11-2025 Albumin [Mass/Vol] 3.9 g/dL Normal 3.4-4.8 [facility] Comment on above: Result Comment: AMENDED REPORT 01/11/255 ALB previously reported as: 3.7 g/dL Performed By: #### L 501.5425, L500.2500, L100.0100 #### [facility] Laboratory [address] [place], [place], [address] Albumin/Globulin [Mass ratio] 1.8 {ratio} Normal 0.9-2.4 [facility] Comment on above: Result Comment: AMENDED REPORT 01/11/255 A/G previously reported as: 1.5 RATIO Performed By: #### L 501.5425, L500.2500, L100.0100 #### [facility] Laboratory [address] [place], [address] ALK PHOS 366 U/L High 35-104 [facility] Comment on above: Result Comment: AMENDED REPORT 01/11/251444 ALK P previously reported as: 349 H U/L Performed By: #### L 501.5425, L500.2500, L100.0100 #### [facility] Laboratory [address] [place], [address] ALT [Catalytic activity/Vol] 343 U/L High <=34 [facility] Comment on above: Result Comment: AMENDED REPORT 01/11/251444 ALT previously reported as: 333 H U/L Performed By: #### L 501.5425, L500.2500, L100.0100 #### [facility] Laboratory [address] [place], [address] AST [Catalytic activity/Vol] 247 U/L High <=31 [facility] Comment on above: Result Comment: AMENDED REPORT 01/11/251444 AST previously reported as: 240 H U/L Performed By: #### L 501.5425, L500.2500, L100.0100 #### [facility] Laboratory [address] [place], [address] Bilirubin [Mass/Vol] 10.20 mg/dL High 0.00-1.[address] [facility] Comment on above: Result Comment: AMENDED REPORT 01/11/251444 T BILI previously reported as: 10.00 H mg/dL Performed By: #### L 501.5425, L500.2500, L100.0100 #### [facility] Laboratory [address] [place], [address] BUN/CRE 10.8 RATIO Normal 10-20 [facility] Comment on above: Result Comment: AMENDED REPORT 01/11/251444 BUN/CRE previously reported as: 10.0 RATIO Performed By: #### L 501.5425, L500.2500, L100.0100 #### [facility] Laboratory [address] [place], [address] Calcium [Mass/Vol] 9.5 mg/dL Normal 7.6-11.0 [facility] Comment on above: Result Comment: AMENDED REPORT 01/11/251444 CA previously reported as: 9.7 mg/dL Performed By: #### L 501.5425, L500.2500, L100.0100 #### [facility] Laboratory [address] [place], [address] Chloride [Moles/Vol] 103 mmol/L Normal 98-108 [facility] Comment on above: Result Comment: AMENDED REPORT 01/11/251444 CL previously reported as: 104 mmol/L Performed By: #### L 501.5425, L500.2500, L100.0100 #### [facility] [address] [place], [address] CO2 [Moles/Vol] 20.0 mmol/L Low 21.0-32.0 [facility] Comment on above: Result Comment: AMENDED REPORT 01/11/251444 CO2 previously reported as: 19.6 L mmol/L Performed By: #### L 501.5425, L500.2500, L100.0100 #### [facility] Laboratory [address] [place], [address] Creatinine [Mass/Vol] 0.74 mg/dL Normal 0.70-1.[address] [facility] Comment on above: Result Comment: Icte cristina present, Results may be affected. AMENDED REPORT 01/11/251444 CREAT,SERUM previously reported as: 0.73 mg/dL Icterus present, Results may be affected. Performed By: #### L 501.5425, L500.2500, L100.0100 #### [facility] [address] [place], [address] ECRCL 44.71 ml/min Low 50-250 [facility] Comment on above: Performed By: #### L 501.5425, L500.2500, L100.0100 #### [facility] [address] [place], [address] GAP 13 Normal 5-15 [facility] Comment on above: Performed By: #### L 501.5425, L500.2500, L100.0100 #### [facility] [address] [place], [address] Globulin (S) [Mass/Vol] 2.1 g/dL Low 2.2-4.2 [facility] Comment on above: Result Comment: AMENDED REPORT 01/11/251444 GLOB previously reported as: 2.5 g/dL Performed By: #### L 501.5425, L500.2500, L100.0100 #### [facility] [address] [place], [address] Glucose [Mass/Vol] 276 mg/dL High 70-99 [facility] Comment on above: Performed By: #### L 501.5425, L500.2500, L100.0100 #### [facility] [address] [place], [address] Potassium [Moles/Vol] 3.8 mmol/L Normal 3.3-5.[address] [facility] Comment on above: Result Comment: AMENDED REPORT 01/11/251444 K previously reported as: 3.6 mmol/L Performed By: #### L 501.5425, L500.2500, L100.0100 #### [facility] [address] [place], [address] Sodium [Moles/Vol] 136 mmol/L Normal 133-145 [facility] Comment on above: Result Comment: AMENDED REPORT 01/11/251444 NA previously reported as: 135 mmol/L Performed By: #### L 501.5425, L500.2500, L100.0100 #### [facility] [address] [place], [address] T PROT 5.9 g/dL Normal 5.9-8.4 [facility] Comment on above: Result Comment: AMENDED REPORT 01/11/251444 T PROT previously reported as: 6.2 g/dL Performed By: #### L 501.5425, L500.2500, L100.0100 #### [facility] [address] [place], [address] Urea nitrogen [Mass/Vol] 8 mg/dL Normal 4-19 [facility] Comment on above: Result Comment: AMENDED REPORT 01/11/251444 BUN previously reported as: 7 mg/dL Performed By: #### L 501.5425, L500.2500, L100.0100 #### [facility] [address] [place], [address] Eosinophil percentageOrdered By: Keenan Celeste on 01-11-2025 Eosinophils/100 WBC (Bld) 2.4 % 0-5 [facility] Erythrocyte distribution wid th ratioOrdered By: Keenan Celeste on 01-11-2025 Erythrocyte distribution width (RBC) [Ratio] 15.1 % High 11.6-14.6 [facility] Erythrocyte distribution wid th standard deviationOrdered By: Keenan Celeste on 01-11-2025 Erythrocyte distribution width (RBC) [Entitic vol] 47.8 fL High 35.1-43.9 [facility] Estimation of creatinine pallavi aranceOrdered By: Keenan Celeste on 01-11-2025 Estimated Creatinine Clearance Calc 44.71 ml/min Low 50-250 [facility] GFR/1.73 sq M.predicted karlee g non-blacks MDRD (S/P/Bld) [Vol rate/Area]Ordered By: Keenan Celeste on 01-11-2025 Estimated GFR (MDRD) Non-Af Amer 81 >60 [facility] Comment on above: mL/min/1.73m2 CKD-EP I Creatinine Equation (2020) Hematocrit Auto (Bld) [Volum e fraction]Ordered By: Keenan Celeste on 01-11-2025 Hematocrit (Bld) [Volume fraction] 34.2 % Low 37-47 [facility] Hemoglobin measurementOrdere d By: Keenan Celeste on 01-11-2025 Hemoglobin (Bld) [Mass/Vol] 11.7 g/dL Low 12.0-15.0 [facility] Immature granulocytes/100 WB C Auto (Bld)Ordered By: Keenan Celeste on 01-11-2025 Immature granulocytes/100 WBC (Bld) 0.400 % 0.0-0.9 [facility] Comment on above: IG% - Immature Granu locytes (promyelocytes, myelocytes and metamyelocytes) > 1% indicates that a LEFT SHIFT is Present. Laboratory - Chemistry and C hemistry - challengeOrdered By: Keenan Celeste on 01-11-2025 AST [Catalytic activity/Vol] 247 U/L High <32 [facility] Comment on above: Previous reported re sult: 240 U/LEdited by: AUTOINS on 01/11/25:1445 AMENDED REPORT 01/11/25 1445 AST previously reported as: 240 H U/L Lymphocytes Auto (Unsp spec) [#/Vol]Ordered By: Keenan Celeste on 01-11-2025 Lymphocytes (Bld) [#/Vol] 1.14 10*3/uL 0.83-4.51 [facility] Lymphocytes/100 WBC Auto (Un sp spec)Ordered By: Keenan Celeste on 01-11-2025 Lymphocytes/100 WBC (Bld) 22.9 % 19-41 [facility] MCV (mean corpuscular volume ) determinationOrdered By: Keenan Celeste on 01-11-2025 MCV (RBC) [Entitic vol] 86.8 fL 81-99 [facility] Mean corpuscular hemoglobin (MCH) determinationOrdered By: Keenan Celeste on 01-11-2025 MCH (RBC) [Entitic mass] 29.7 pg 27.0-32.0 [facility] Mean corpuscular hemoglobin concentration (MCHC) determinationOrdered By: Keenan Celeste on 01-11-2025 MCHC (RBC) [Mass/Vol] 34.2 g/dL 32-[address] [facility] Mean platelet volume determi nationOrdered By: Keenan Celeste on 01-11-2025 Platelet mean volume (Bld) [Entitic vol] 13.7 fL High 6.2-12.0 [facility] Monocyte percentageOrdered B y: Keenan Celeste on 01-11-2025 Monocytes/100 WBC (Bld) 11.6 % High 0-10 [facility] Neutrophil percentageOrdered By: Keenan Celeste on 01-11-2025 Neutrophils/100 WBC (Bld) 62.1 % 47-70 [facility] Nucleated red blood cell per centageOrdered By: Keenan Celeste on 01-11-2025 Nucleated RBC/100 WBC (Bld) [Ratio] 0 % 0-5 [facility] Platelet countOrdered By: Jose Celeste on 01-11-2025 Platelets (Bld) [#/Vol] 169 10*3/uL 150-450 [facility] Potassium (Unsp spec) [Mass/ Vol]Ordered By: Keenan Celeste on 01-11-2025 Potassium [Moles/Vol] 3.8 mmol/L 3.3-5.[address] [facility] Comment on above: Previous reported re sult: 3.6 mmol/LEdited by: AUTOINNaveen on 01/11/25:1445 AMENDED REPORT 01/11/25 1445 K previously reported as: 3.6 mmol/L RBC Auto (Bld) [#/Vol]Ordere d By: Keenan Celeste on 01-11-2025 RBC (Bld) [#/Vol] 3.94 10*6/uL Low 4.2-5.4 [facility] Serum creatinine measurement (mass/volume)Ordered By: Keenan Celeste on 01-11-2025 Creatinine [Mass/Vol] 0.74 mg/dL 0.70-1.[address] [facility] Comment on above: Icterus present, Res ults may be affected.Previous reported result: 0.73 mg/dLEdited by: BRIDGER on 01/11/25:1445 AMENDED REPORT 01/11/251444 CREAT,SERUM previously reported as: 0.73 mg/dL Icterus present, Results may be affected. Serum globulin measurementOr dered By: Keenan Celeste on 01-11-2025 Globulin (S) [Mass/Vol] 2.1 g/dL Low 2.2-4.2 [facility] Comment on above: Previous reported re sult: 2.5 g/dLEdited by: BRIDGER on 01/11/25:1445 AMENDED REPORT 01/11/251444 GLOB previously reported as: 2.5 g/dL Serum glucose measurement (m ass/volume)Ordered By: Keenan Celeste on 01-11-2025 Glucose [Mass/Vol] 276 mg/dL High 70-99 [facility] Serum or plasma alanine mendoza otransferase (ALT) measurementOrdered By: Keenan Celeste on 01-11-2025 ALT [Catalytic activity/Vol] 343 U/L High <35 [facility] Comment on above: Previous reported re sult: 333 U/LEdited by: BRIDGER on 01/11/25:1445 AMENDED REPORT 01/11/251444 ALT previously reported as: 333 H U/L Serum or plasma albumin froylan urement (mass/volume)Ordered By: Keenan Celeste on 01-11-2025 Albumin [Mass/Vol] 3.9 g/dL 3.4-4.8 [facility] Comment on above: Previous reported re sult: 3.7 g/dLEdited by: BRIDGER on 01/11/25:1445 AMENDED REPORT 01/11/251444 ALB previously reported as: 3.7 g/dL Serum or plasma albumin/glob ulin mass ratioOrdered By: Keenan Celeste on 01-11-2025 Albumin/Globulin [Mass ratio] 1.8 {ratio} 0.9-2.4 [facility] Comment on above: Previous reported re sult: 1.5 RATIOEdited by: BRIDGER on 01/11/25:1445 AMENDED REPORT 01/11/251444 A/G previously reported as: 1.5 RATIO Serum or plasma alkaline charli sphatase measurementOrdered By: Keenan Celeste on 01-11-2025 ALP [Catalytic activity/Vol] 366 U/L High 35-104 [facility] Comment on above: Previous reported re sult: 349 U/LEdited by: BRIDGER on 01/11/25:1445 AMENDED REPORT 01/11/251444 ALK P previously reported as: 349 H U/L Serum or plasma calcium froylan urement (mass/volume)Ordered By: Keenan Celeste on 01-11-2025 Calcium [Mass/Vol] 9.5 mg/dL 7.6-11.0 [facility] Comment on above: Previous reported re sult: 9.7 mg/dLEdited by: BRIDGER on 01/11/25:1445 AMENDED REPORT 01/11/251444 CA previously reported as: 9.7 mg/dL Serum or plasma urea nitroge n measurement (mass/volume)Ordered By: Keenan Celeste on 01-11-2025 Urea nitrogen [Mass/Vol] 8 mg/dL 4-19 [facility] Comment on above: Previous reported re sult: 7 mg/dLEdited by: BRIDGER on 01/11/25:1445 AMENDED REPORT 01/11/25 144 BUN previously reported as: 7 mg/dL Sodium levelOrdered By: Keenan Celeste on 01-11-2025 Sodium [Moles/Vol] 136 mmol/L 133-145 [facility] Comment on above: Previous reported re sult: 135 mmol/LEdited by: BRIDGER on 01/11/25:1445 AMENDED REPORT 01/11/25 144 NA previously reported as: 135 mmol/L Total proteinOrdered By: Daniela Celeste on 01-11-2025 Protein [Mass/Vol] 5.9 g/dL 5.9-8.4 [facility] Comment on above: Previous reported re sult: 6.2 g/dLEdited by: BRIDGER on 01/11/25:1445 AMENDED REPORT 01/11/25 1445 T PROT previously reported as: 6.2 g/dL White blood cell (WBC) count Ordered By: Keenan Celeste on 01-11-2025 WBC (Bld) [#/Vol] 5.0 10*3/uL 4.4-11.0 [facility] Bedside Glucoseon 01-10-2025 FINGERSTICK GLU 388 mg/dL High 74-106 [facility] Comment on above: Result Comment: JILLIAN GEMENT OF PATIENT CARE PER NURSING PROTOCOL Performed By: #### L 501.080 #### [facility] [address] [place], [address] FINGERSTICK GLU 369 mg/dL High 74-106 [facility] Comment on above: Result Comment: JILLIAN GEMENT OF PATIENT CARE PER NURSING PROTOCOL Performed By: #### L 501.080 #### [facility] [address] [place], [address] FINGERSTICK GLU 311 mg/dL High [facility] Comment on above: Result Comment: JILLIAN GEMENT OF PATIENT CARE PER NURSING PROTOCOL Performed By: #### L 501.080 #### [facility] [address] [place], [address] CBC W/Diff, Automatedon 12-26 Absolute Lymph 1.24 X10 3/uL Normal 0.83-4.51 [facility] Comment on above: Performed By: #### L 501.080 #### [facility] [address] [place], [address] Absolute Neut 4.3 X10 3/uL Normal 2.0-7.7 [facility] Comment on above: Performed By: #### L 501.080 #### [facility] [address] [place], [address] Basophils/100 WBC (Bld) 0.5 % Normal 0-1 [facility] Comment on above: Performed By: #### L 501.080 #### [facility] [address] [place], [address] Eosinophils/100 WBC (Bld) 1.1 % Normal 0-5 [facility] Comment on above: Performed By: #### L 501.080 #### [facility] [address] [place], [address] Erythrocyte distribution width (RBC) [Ratio] 14.7 % High 11.6-14.6 [facility] Comment on above: Performed By: #### L 501.080 #### [facility] [address] [place], [address] Hematocrit (Bld) [Volume fraction] 35.0 % Low 37-47 [facility] Comment on above: Performed By: #### L 501.080 #### [facility] [address] [place], [address] Hemoglobin (Bld) [Mass/Vol] 12.0 g/dL Normal 12.0-15.0 [facility] Comment on above: Performed By: #### L 501.080 #### [facility] [address] [place], [address] IG% 0.200 Normal 0.0-0.9 [facility] Comment on above: Result Comment: IG% - Immature Granulocytes (promyelocytes, myelocytes and metamyelocytes) > 1% indicates that a LEFT SHIFT is Present. Performed By: #### L 501.080 #### [facility] [address] [place], [address] Lymphocytes/100 WBC (Bld) 19.4 % Normal 19-41 [facility] Comment on above: Performed By: #### L 501.080 #### [facility] [address] [place], [address] MCH (RBC) [Entitic mass] 30.0 pg Normal 27.0-32.0 [facility] Comment on above: Performed By: #### L 501.080 #### [facility] [address] [place], [address] MCHC (RBC) [Mass/Vol] 34.3 g/dL Normal 32-[address] [facility] Comment on above: Performed By: #### L 501.080 #### [facility] [address] [place], [address] MCV (RBC) [Entitic vol] 87.5 fL Normal 81-99 [facility] Comment on above: Performed By: #### L 501.080 #### [facility] [address] [place], [address] Monocytes/100 WBC (Bld) 12.1 % High 0-10 [facility] Comment on above: Performed By: #### L 501.080 #### [facility] [address] [place], [address] Neutrophils/100 WBC (Bld) 66.7 % Normal 47-70 [facility] Comment on above: Performed By: #### L 501.080 #### [facility] [address] [place], [address] Nucleated RBC (Bld) [#/Vol] 0 10*3/uL Normal 0-5 [facility] Comment on above: Performed By: #### L 501.080 #### [facility] [address] [place], [address] Platelet mean volume (Bld) [Entitic vol] 13.5 fL High 6.2-12.0 [facility] Comment on above: Performed By: #### L 501.080 #### [facility] [address] [place], [address] Platelets (Bld) [#/Vol] 167 10*3/uL Normal 150-450 [facility] Comment on above: Performed By: #### L 501.080 #### [facility] [address] [place], [address] RBC (Bld) [#/Vol] 4.00 10*6/uL Low 4.2-5.4 [facility] Comment on above: Performed By: #### L 501.080 #### [facility] [address] [place], [address] RDW SD 47.3 fl High 35.1-43.9 [facility] Comment on above: Performed By: #### L 501.080 #### [facility] [address] [place], [address] WBC (Bld) [#/Vol] 6.4 10*3/uL Normal 4.4-11.0 [facility] Comment on above: Performed By: #### L 501.080 #### [facility] [address] [place], [address] Calculated very low density lipoprotein (VLDL) cholesterol measurementOrdered By: Oniel Hernandez on 01-10-2025 VLDL Cholesterol 26 mg/dL 5-40 [facility] Comprehensive Metabolic Prof ilon 01-10-2025 Albumin [Mass/Vol] 3.8 g/dL Normal 3.4-4.8 [facility] Comment on above: Performed By: #### L 501.080 #### [facility] [address] [place], [address] Albumin/Globulin [Mass ratio] 1.4 {ratio} Normal 0.9-2.4 [facility] Comment on above: Performed By: #### L 501.080 #### [facility] [address] [place], [address] ALK PHOS 374 U/L High 35-104 [facility] Comment on above: Performed By: #### L 501.080 #### [facility] [address] [place], [address] ALT [Catalytic activity/Vol] 367 U/L High <=34 [facility] Comment on above: Performed By: #### L 501.080 #### [facility] [address] [place], [address] AST [Catalytic activity/Vol] 286 U/L High <=31 [facility] Comment on above: Performed By: #### L 501.080 #### [facility] [address] [place], [address] Bilirubin [Mass/Vol] 8.88 mg/dL High 0.00-1.30 [facility] Comment on above: Performed By: #### L 501.080 #### [facility] [address] [place], [address] BUN/CRE 13.6 RATIO Normal 10-20 [facility] Comment on above: Performed By: #### L 501.080 #### [facility] [address] [place], [address] Calcium [Mass/Vol] 9.4 mg/dL Normal 7.6-11.0 [facility] Comment on above: Performed By: #### L 501.080 #### [facility] [address] [place], [address] Chloride [Moles/Vol] 101 mmol/L Normal 98-108 [facility] Comment on above: Performed By: #### L 501.080 #### [facility] [address] [place], [address] CO2 [Moles/Vol] 17.3 mmol/L Low 21.0-32.0 [facility] Comment on above: Performed By: #### L 501.080 #### [facility] [address] [place], [address] Creatinine [Mass/Vol] 0.65 mg/dL Low 0.70-1.[address] [facility] Comment on above: Result Comment: Icte cristina present, Results may be affected. Performed By: #### L 501.080 #### [facility] [address] [place], [address] ECRCL 44.61 ml/min Low 50-250 [facility] Comment on above: Performed By: #### L 501.080 #### [facility] [address] [place], [address] GAP 16 High 5-15 [facility] Comment on above: Performed By: #### L 501.080 #### [facility] [address] [place], [address] GFR/1.73 sq M.predicted among non-blacks MDRD (S/P/Bld) [Vol rate/Area] 87 mL/min/{1.73_m2} Normal >60 [facility] Comment on above: Result Comment: mL/m in/1.73m2 CKD-EPI Creatinine Equation (2020) Performed By: #### L 501.080 #### [facility] [address] [place], [address] Globulin (S) [Mass/Vol] 2.7 g/dL Normal 2.2-4.2 [facility] Comment on above: Performed By: #### L 501.080 #### [facility] [address] [place], [address] Glucose [Mass/Vol] 371 mg/dL High 70-99 [facility] Comment on above: Performed By: #### L 501.080 #### [facility] [address] [place], [address] Potassium [Moles/Vol] 3.4 mmol/L Normal 3.3-5.[address] [facility] Comment on above: Performed By: #### L 501.080 #### [facility] [address] [place], [address] Sodium [Moles/Vol] 134 mmol/L Normal 133-145 [facility] Comment on above: Performed By: #### L 501.080 #### [facility] [address] [place], [address] T PROT 6.6 g/dL Normal 5.9-8.4 [facility] Comment on above: Performed By: #### L 501.080 #### [facility] [address] [place], [address] Urea nitrogen [Mass/Vol] 9 mg/dL Normal 4-19 [facility] Comment on above: Performed By: #### L 501.080 #### [facility] [address] [place], [address] H AND P Exam - [facility] 01-10-2025 H&P Exam - Hospitalist [facility] Medical Records Department [address] [place] [address] H P Exam - Hospitalist 01/10/25 0039 MR#: [id number] Acct: [id number] Name: TELMA TINEO Rep #: [id number] : 1940 84 From: Oniel Golden DO PCP: Dr. Henok Martinez MD Status:ADM IN Location: [facility] [id number] HPI - General General Date of Admission: 01/10/25 Date of Service: 01/10/25 Chief Complaint: Jaundice. [facility] Narrative TELMA TINEO, is a 84 [...] with chronic neck pain who presents to [facility] ER complaining of jaundice. Ms. [...] She was then arranged for transfer to [facility] with bed not available at this time so the ER physician is contacted the hospitalist service to admit this patient until such time she can be safely transferred as per the policy of this hospital. She was then admitted to the general medical floor for ongoing care for stay that is expected to extend beyond 2 midnights. [facility] Medical History (Updated 01/10/25 @ 02:15 [...] 02:12 by (more content not included)... Normal [facility] Hemoglobin A1con 01-10-2025 HbA1c (Bld) [Mass fraction] 13.2 % Normal <=5.6 [facility] Comment on above: Performed By: #### L 501.080 #### [facility] [address] [place], [place], [id number] Hemoglobin A1c percentageOrd ered By: Keenan Celeste on 01-10-2025 HbA1c (Bld) [Mass fraction] 13.2 % >5.7 [facility] LDL calc ser/plasOrdered By: Oniel Hernandez on 01-10-2025 LDL Cholesterol, Calculated 78 mg/dL [facility] Comment on above: Nvuulessqf=586-332 m g/dL & Higher Ioyq=806 mg/dL or greater Lipid Profileon 01-10-2025 CHOL:HDL 2.91 Normal [facility] Comment on above: Performed By: #### L 501.080 #### [facility] [address] [place], [address] Cholesterol [Mass/Vol] 159 mg/dL Normal <=200 [facility] Comment on above: Result Comment: Chol esterol level, Desirable <200 mg/dL Borderline high cholesterol 200-239 mg/dL High cholesterol >=240 mg/dL Recommendations of the NCEP Adult Treatment Panel for the following risk-cutoff thresholds for the [place] population. Performed By: #### L 501.080 #### [facility] [address] [place], [address] Cholesterol in HDL [Mass/Vol] 55 mg/dL Normal [facility] Comment on above: Result Comment: [place] on[place] Cholesterol Education Program (NCEP) guidelines: <40 mg/dL: Low HDL-cholesterol (major risk factor for CHD) >= 60 mg/dL: High HDL-cholesterol (negative risk factor for CHD) HDL-cholesterol is affected by a number of factors, e.g. smoking, exercise, hormones, sex and age. Performed By: #### L 501.080 #### [facility] [address] [place], [address] Cholesterol in LDL [Mass/Vol] 78 mg/dL Normal [facility] Comment on above: Result Comment: Bord gqihcm=178-395 mg/dL Higher Qbfb=946 mg/dL or greater Performed By: #### L 501.080 #### [facility] [address] [place], [address] Cholesterol in VLDL [Mass/Vol] 26 mg/dL Normal 5-40 [facility] Comment on above: Performed By: #### L 501.080 #### [facility] [address] [place], [address] Triglyceride [Mass/Vol] 130 mg/dL Normal [facility] Comment on above: Result Comment: The drugs N-Acetylcysteine and Metamizole may falsely depress this assay. Normal range: <150 mg/dL Borderline High: 150-199 mg/dL High: 200-499 mg/dL Very High: >500 mg/dL Performed By: #### L 501.080 #### [facility] [address] [place], [address] Magnesiumon 01-10-2025 Magnesium [Mass/Vol] 1.9 mg/dL Normal 1.5-2.2 [facility] Comment on above: Performed By: #### L 501.5200 #### [facility] [address] [place], [address] Phosphoruson 01-10-2025 Phosphate [Mass/Vol] 2.9 mg/dL Normal 2.7-4.5 [facility] Comment on above: Performed By: #### L 501.080 #### [facility] [address] [place], [address] Screening total cholesterol/ high density lipoprotein (HDL) cholesterol ratioOrdered By: Oniel Hernandez on 01-10-2025 Cholesterol.total/Chol esterol in HDL [Mass ratio] 2.91 {ratio} [facility] Serum or plasma cholesterol in HDL measurement (mass/volume)Ordered By: Oniel Hernandez on 01-10-2025 Cholesterol in HDL [Mass/Vol] 55 mg/dL >40 [facility] Comment on above: National Cholesterol Education Program (NCEP) guidelines:<40 mg/dL: Low HDL-cholesterol (major risk factor for CHD)>= 60 mg/dL: High HDL-cholesterol (negative risk factor for CHD)HDL-cholesterol is affected by a number of factors, e.g. smoking, exercise, hormones, sex and age. Serum or plasma cholesterol measurement (mass/volume)Ordered By: Oniel Hernandez on 01-10-2025 Cholesterol [Mass/Vol] 159 mg/dL <201 [facility] Comment on above: Cholesterol level, D esirable <200 mg/dLBorderline high cholesterol 200-239 mg/dLHigh cholesterol >=240 mg/dLRecommendations of the NCEP Adult Treatment Panel for the following risk-cutoff thresholds for the [place] population. Serum phosphorus measurement Ordered By: Oniel Hernandez on 01-10-2025 Phosphorus Level 2.9 mg/dL 2.7-4.5 [facility] TSH DL <= 0.005 mIU/L QnOrde red By: Oniel Hernandez on 01-10-2025 Thyroid Stimulating Hormone (TSH) 2.180 uIU/mL 0.300-4.200 [facility] Thyroid Stim Hormone (TSH)on 01-10-2025 TSH 2.180 uIU/mL Normal 0.300-4.200 [facility] Comment on above: Performed By: #### L 501.080 #### [facility] [address] [facility] [address] [place], [place], [address] Triglycerides measurementOrd ered By: Oniel Hernandez on 01-10-2025 Triglyceride [Mass/Vol] 130 mg/dL <199 [facility] Comment on above: The drugs N-Acetylcy steine and Metamizole may falsely depress this assay. Normal range: <150 mg/dLBorderline High: 150-199 mg/dLHigh: 200-499 mg/dLVery High: >500 mg/dL Abdomen/Pelvis W IV Cont ONL Yon 01-09-2025 Abdomen/Pelvis W IV Cont ONLY [facility] [address] [place], [place] [address] Abdomen/Pelvis W IV Cont ONLY MR#: [id number] Acct: [id number] Name: TELMA TINEO Rep #: [id number] : 1940 F 84 From: Keenan Jonas MD PCP: Dr. Henok Martinez MD Status: [facility] ER Study: Abdomen/Pelvis W IV Cont ONLY Date of Exam: Exam# [id number] Ordering Dr: Guille Garnica MD PROCEDURE: ABDOMEN/PELVIS [...] Guille Garnica MD; Dr. Henok Martinez MD Seam Steamer: Signed Normal [facility] Absolute neutrophil countOrd ered By: Guille Garnica on 01-09-2025 Neutrophils (Bld) [#/Vol] 4.2 10*3/uL 2.0-7.7 [facility] Anion gap in Serum or Plasma Ordered By: Guille Garnica on 01-09-2025 Anion gap [Moles/Vol] 14 mmol/L 03-[address] [facility] BUN/creatinine ratioOrdered By: Guille Garnica on 01-09-2025 Urea nitrogen/Creatinine [Mass ratio] 14.0 mg/mg 08-16 [facility] Basic Metabolic Profile (BMP )on 01-09-2025 BUN/CRE 14.0 RATIO Normal 08-16 [facility] Comment on above: Performed By: #### L 100.0100, L501.2450, L500.2500, L300.3900, L500.3400, L300.4310 ####[facility] [address] [place], [address] Calcium [Mass/Vol] 9.9 mg/dL Normal 7.6-11.0 [facility] Comment on above: Performed By: #### L 100.0100, L501.2450, L500.2500, L300.3900, L500.3400, L300.4310 ####[facility] [address] [place], [address] Chloride [Moles/Vol] 98 mmol/L Normal 98-108 [facility] Comment on above: Performed By: #### L 100.0100, L501.2450, L500.2500, L300.3900, L500.3400, L300.4310 ####[facility] [address] [place], [address] CO2 [Moles/Vol] 20.3 mmol/L Low 21.0-32.0 [facility] Comment on above: Performed By: #### L 100.0100, L501.2450, L500.2500, L300.3900, L500.3400, L300.4310 ####[facility] [address] [place], [address] Creatinine [Mass/Vol] 0.81 mg/dL Normal 0.70-1.[address] [facility] Comment on above: Result Comment: Icte cristina present, Results may be affected. Performed By: #### L 100.0100, L501.2450, L500.2500, L300.3900, L500.3400, L300.4310 ####[facility] [address] [place], [address] ECRCL 44.58 ml/min Low 50-250 [facility] Comment on above: Performed By: #### L 100.0100, L501.2450, L500.2500, L300.3900, L500.3400, L300.4310 ####[facility] [address] [place], [address] GAP 14 Normal 5-15 [facility] Comment on above: Performed By: #### L 100.0100, L501.2450, L500.2500, L300.3900, L500.3400, L300.4310 ####[facility] [address] [place], [address] GFR/1.73 sq M.predicted among non-blacks MDRD (S/P/Bld) [Vol rate/Area] 71 mL/min/{1.73_m2} Normal >60 [facility] Comment on above: Result Comment: mL/m in/1.73m2 CKD-EPI Creatinine Equation (2020) Performed By: #### L 100.0100, L501.2450, L500.2500, L300.3900, L500.3400, L300.4310 ####[facility] [address] [place], [address] Glucose [Mass/Vol] 418 mg/dL High 70-99 [facility] Comment on above: Performed By: #### L 100.0100, L501.2450, L500.2500, L300.3900, L500.3400, L300.4310 ####[facility] [address] [place], [place], [id number] Potassium [Moles/Vol] 3.8 mmol/L Normal 3.3-5.[address] [facility] Comment on above: Performed By: #### L 100.0100, L501.2450, L500.2500, L300.3900, L500.3400, L300.4310 ####[facility] [address] [place], [place], [id number] Sodium [Moles/Vol] 132 mmol/L Low 133-145 [facility] Comment on above: Performed By: #### L 100.0100, L501.2450, L500.2500, L300.3900, L500.3400, L300.4310 ####[facility] [address] [place], [place], [id number] Urea nitrogen [Mass/Vol] 11 mg/dL Normal 4-19 [facility] Comment on above: Performed By: #### L 100.0100, L501.2450, L500.2500, L300.3900, L500.3400, L300.4310 ####[facility] [address] [place], [place], [phone] Basophil percentageOrdered B y: Guille Garnica on 01-09-2025 Basophils/100 WBC (Bld) 0.6 % 0-1 [facility] Bilirubin directOrdered By: Guille Garnica on 01-09-2025 Bilirubin.direct [Mass/Vol] 7.64 mg/dL High 0.00-0.30 [facility] Bilirubin, totalOrdered By: Guille Garnica on 01-09-2025 Bilirubin [Mass/Vol] 9.78 mg/dL High 0.00-1.30 [facility] CBC W/Diff, Automatedon 12-26 Absolute Lymph 1.37 X10 3/uL Normal 0.83-4.51 [facility] Comment on above: Performed By: #### L 100.0100, L501.2450, L500.2500, L300.3900, L500.3400, L300.4310 #### [facility] [address] [place], [address] Absolute Neut 4.2 X10 3/uL Normal 2.0-7.7 [facility] Comment on above: Performed By: #### L 100.0100, L501.2450, L500.2500, L300.3900, L500.3400, L300.4310 #### [facility] [address] [place], [address] Basophils/100 WBC (Bld) 0.6 % Normal 0-1 [facility] Comment on above: Performed By: #### L 100.0100, L501.2450, L500.2500, L300.3900, L500.3400, L300.4310 #### [facility] [address] [place], [address] Eosinophils/100 WBC (Bld) 1.1 % Normal 0-5 [facility] Comment on above: Performed By: #### L 100.0100, L501.2450, L500.2500, L300.3900, L500.3400, L300.4310 #### [facility] [address] [place], [address] Erythrocyte distribution width (RBC) [Ratio] 14.6 % Normal 11.6-14.6 [facility] Comment on above: Performed By: #### L 100.0100, L501.2450, L500.2500, L300.3900, L500.3400, L300.4310 #### [facility] [address] [place], [address] Hematocrit (Bld) [Volume fraction] 37.4 % Normal 37-47 [facility] Comment on above: Performed By: #### L 100.0100, L501.2450, L500.2500, L300.3900, L500.3400, L300.4310 #### [facility] [address] [place], [address] Hemoglobin (Bld) [Mass/Vol] 12.6 g/dL Normal 12.0-15.0 [facility] Comment on above: Performed By: #### L 100.0100, L501.2450, L500.2500, L300.3900, L500.3400, L300.4310 #### [facility] [address] [place], [address] IG% 0.300 Normal 0.0-0.9 [facility] Comment on above: Result Comment: IG% - Immature Granulocytes (promyelocytes, myelocytes and metamyelocytes) > 1% indicates that a LEFT SHIFT is Present. Performed By: #### L 100.0100, L501.2450, L500.2500, L300.3900, L500.3400, L300.4310 #### [facility] [address] [place], [address] Lymphocytes/100 WBC (Bld) 21.5 % Normal 19-41 [facility] Comment on above: Performed By: #### L 100.0100, L501.2450, L500.2500, L300.3900, L500.3400, L300.4310 #### [facility] [address] [place], [address] MCH (RBC) [Entitic mass] 29.6 pg Normal 27.0-32.0 [facility] Comment on above: Performed By: #### L 100.0100, L501.2450, L500.2500, L300.3900, L500.3400, L300.4310 #### [facility] [address] [place], [address] MCHC (RBC) [Mass/Vol] 33.7 g/dL Normal 32-[address] [facility] Comment on above: Performed By: #### L 100.0100, L501.2450, L500.2500, L300.3900, L500.3400, L300.4310 #### [facility] [address] [place], [address] MCV (RBC) [Entitic vol] 87.8 fL Normal 81-99 [facility] Comment on above: Performed By: #### L 100.0100, L501.2450, L500.2500, L300.3900, L500.3400, L300.4310 #### [facility] [address] [place], [address] Monocytes/100 WBC (Bld) 10.8 % High 0-10 [facility] Comment on above: Performed By: #### L 100.0100, L501.2450, L500.2500, L300.3900, L500.3400, L300.4310 #### [facility] [address] [place], [address] Neutrophils/100 WBC (Bld) 65.7 % Normal 47-70 [facility] Comment on above: Performed By: #### L 100.0100, L501.2450, L500.2500, L300.3900, L500.3400, L300.4310 #### [facility] [address] [place], [address] Nucleated RBC (Bld) [#/Vol] 0 10*3/uL Normal 0-5 [facility] Comment on above: Performed By: #### L 100.0100, L501.2450, L500.2500, L300.3900, L500.3400, L300.4310 #### [facility] [address] [place], [address] Platelet mean volume (Bld) [Entitic vol] 13.7 fL High 6.2-12.0 [facility] Comment on above: Performed By: #### L 100.0100, L501.2450, L500.2500, L300.3900, L500.3400, L300.4310 #### [facility] [address] [place], [address] Platelets (Bld) [#/Vol] 171 10*3/uL Normal 150-450 [facility] Comment on above: Performed By: #### L 100.0100, L501.2450, L500.2500, L300.3900, L500.3400, L300.4310 #### [facility] [address] [place], [address] RBC (Bld) [#/Vol] 4.26 10*6/uL Normal 4.2-5.4 [facility] Comment on above: Performed By: #### L 100.0100, L501.2450, L500.2500, L300.3900, L500.3400, L300.4310 #### [facility] [address] [place], [address] RDW SD 47.2 fl High 35.1-43.9 [facility] Comment on above: Performed By: #### L 100.0100, L501.2450, L500.2500, L300.3900, L500.3400, L300.4310 #### [facility] [address] [place], [address] WBC (Bld) [#/Vol] 6.4 10*3/uL Normal 4.4-11.0 [facility] Comment on above: Performed By: #### L 100.0100, L501.2450, L500.2500, L300.3900, L500.3400, L300.4310 #### [facility] [address] [place], [address] Cancer antigen 19-9 measurem entOrdered By: Hung Remy on 01-09-2025 CA 19-9 Antigen 355 U/mL High 0-35 [facility] Comment on above: [facility] El ectrochemiluminescence Immunoassay(ECLIA)Values obtained with different assay methods or kits cannotbe used interchangeably. Results cannot be interpreted asabsolute evidence of the presence or absence of malignantdisease.Performed at: - [facility] [id number] Director: Barry Hart PhD, Phone: [phone] Carbon dioxide, total [Moles /volume] in Central venous bloodOrdered By: Guille Garnica on 01-09-2025 CO2 [Moles/Vol] 20.3 mmol/L Low 21.0-32.0 [facility] Chloride assayOrdered By: Mario Garnica on 01-09-2025 Chloride [Moles/Vol] 98 mmol/L 98-108 [facility] Emergency Department Summary on 01-09-2025 Emergency Department Summary [facility] Medical Records Department [address] [place] [address] Emergency Department Summary 01/09/25 MR#: [id number] Acct: [id number] Name: TELMA TINEO Rep #: [id number] : 1940 84 From: Guille Garnica MD [...] speak with the hospitalist regarding admission 01/09/25 2244 Cosigner Signature (if applicable): cc: Dr. Henok [...] last few days. No fevers or chills. [facility] Medical History Neck pain, bilateral History of [...] 99 97 (more content not included)... Normal [facility] Eosinophil percentageOrdered By: Guille Garnica on 01-09-2025 Eosinophils/100 WBC (Bld) 1.1 % 0-5 [facility] Erythrocyte distribution wid th ratioOrdered By: Guille Garnica on 01-09-2025 Erythrocyte distribution width (RBC) [Ratio] 14.6 % 11.6-14.6 [facility] Erythrocyte distribution wid th standard deviationOrdered By: Guille Garnica on 01-09-2025 Erythrocyte distribution width (RBC) [Entitic vol] 47.2 fL High 35.1-43.9 [facility] Estimation of creatinine pallavi aranceOrdered By: Guille Garnica on 03-15-2025 Estimated Creatinine Clearance Calc 44.58 ml/min Low 50-250 [facility] GFR/1.73 sq M.predicted karlee g non-blacks MDRD (S/P/Bld) [Vol rate/Area]Ordered By: Guille Garnica on 01-09-2025 Estimated GFR (MDRD) Non-Af Amer 71 >60 [facility] Comment on above: mL/min/1.73m2 CKD-EP I Creatinine Equation (2020) Hematocrit Auto (Bld) [Volum e fraction]Ordered By: Guille Garnica on 01-09-2025 Hematocrit (Bld) [Volume fraction] 37.4 % 37-47 [facility] Hemoglobin measurementOrdere d By: Guille Garnica on 01-09-2025 Hemoglobin (Bld) [Mass/Vol] 12.6 g/dL 12.0-15.0 [facility] Immature granulocytes/100 WB C Auto (Bld)Ordered By: Guille Garnica on 01-09-2025 Immature granulocytes/100 WBC (Bld) 0.300 % 0.0-0.9 [facility] Comment on above: IG% - Immature Granu locytes (promyelocytes, myelocytes and metamyelocytes) > 1% indicates that a LEFT SHIFT is Present. International normalized rat io (INR) calculationOrdered By: Guille Garnica on 01-09-2025 INR Coag (Bld) [Relative time] 1.0 {INR} [facility] Laboratory - Chemistry and C hemistry - challengeOrdered By: Guille Garnica on 01-09-2025 AST [Catalytic activity/Vol] 308 U/L High <32 [facility] Lipaseon 01-09-2025 Lipase [Catalytic activity/Vol] 224 U/L High 13-75 [facility] Comment on above: Result Comment: Kisha kimbrough note: LIPASE revised reference range effective 23. New Lipase methodology. Expected to produce lower values than the previous assay method. NEW Reference Range: 13 - 75 U/L Performed By: #### L 100.0100, L501.2450, L500.2500, L300.3900, L500.3400, L300.4310 ####[facility] [address] [place], [place], [phone] Lipase measurementOrdered By : Guille Garnica on 01-09-2025 Lipase [Catalytic activity/Vol] 224 U/L High 13-75 [facility] Comment on above: Please note:LIPASE r evised reference range effective 23. New Lipase methodology. Expected to produce lower values than the previous assay method. NEW Reference Range: 13 - 75 U/L Liver Profileon 01-09-2025 Albumin [Mass/Vol] 4.2 g/dL Normal 3.4-4.8 [facility] Comment on above: Performed By: #### L 100.0100, L501.2450, L500.2500, L300.3900, L500.3400, L300.4310 ####[facility] [address] [place], [address] ALK PHOS 416 U/L High 35-104 [facility] Comment on above: Performed By: #### L 100.0100, L501.2450, L500.2500, L300.3900, L500.3400, L300.4310 ####[facility] [address] [place], [address] ALT [Catalytic activity/Vol] 390 U/L High <=34 [facility] Comment on above: Performed By: #### L 100.0100, L501.2450, L500.2500, L300.3900, L500.3400, L300.4310 ####[facility] [address] [place], [address] AST [Catalytic activity/Vol] 308 U/L High <=31 [facility] Comment on above: Performed By: #### L 100.0100, L501.2450, L500.2500, L300.3900, L500.3400, L300.4310 ####[facility] [address] [place], [address] Bilirubin [Mass/Vol] 9.78 mg/dL High 0.00-1.30 [facility] Comment on above: Performed By: #### L 100.0100, L501.2450, L500.2500, L300.3900, L500.3400, L300.4310 ####[facility] [address] [place], [address] Bilirubin.direct [Mass/Vol] 7.64 mg/dL High 0.00-0.30 [facility] Comment on above: Performed By: #### L 100.0100, L501.2450, L500.2500, L300.3900, L500.3400, L300.4310 ####[facility] [address] [place], [address] Globulin (S) [Mass/Vol] 3.1 g/dL Normal 2.2-4.2 [facility] Comment on above: Performed By: #### L 100.0100, L501.2450, L500.2500, L300.3900, L500.3400, L300.4310 ####[facility] [address] [place], [address] T PROT 7.3 g/dL Normal 5.9-8.4 [facility] Comment on above: Performed By: #### L 100.0100, L501.2450, L500.2500, L300.3900, L500.3400, L300.4310 ####[facility] [address] [place], [address] Lymphocytes Auto (Unsp spec) [#/Vol]Ordered By: Guille Garnica on 01-09-2025 Lymphocytes (Bld) [#/Vol] 1.37 10*3/uL 0.83-4.51 [facility] Lymphocytes/100 WBC Auto (Un sp spec)Ordered By: Guille Garnica on 01-09-2025 Lymphocytes/100 WBC (Bld) 21.5 % 19-41 [facility] MCV (mean corpuscular volume ) determinationOrdered By: Guille Garnica on 01-09-2025 MCV (RBC) [Entitic vol] 87.8 fL 81-99 [facility] Magnesium (Unsp spec) [Mass/ Vol]Ordered By: Oniel Hernandez on 01-09-2025 Magnesium [Mass/Vol] 1.9 mg/dL 1.5-2.2 [facility] Mean corpuscular hemoglobin (MCH) determinationOrdered By: Guille Garnica on 01-09-2025 MCH (RBC) [Entitic mass] 29.6 pg 27.0-32.0 [facility] Mean corpuscular hemoglobin concentration (MCHC) determinationOrdered By: Guille Garnica on 01-09-2025 MCHC (RBC) [Mass/Vol] 33.7 g/dL 32-[address] [facility] Mean platelet volume determi nationOrdered By: Guille Garnica on 01-09-2025 Platelet mean volume (Bld) [Entitic vol] 13.7 fL High 6.2-12.0 [facility] Monocyte percentageOrdered B y: Guille Garnica on 01-09-2025 Monocytes/100 WBC (Bld) 10.8 % High 0-10 [facility] Neutrophil percentageOrdered By: Guille Garnica on 01-09-2025 Neutrophils/100 WBC (Bld) 65.7 % 47-70 [facility] No Panel InformationOrdered By: Hung Remy on 01-09-2025 CA 19-9 Antigen Serial Monitoring Not Reportable [facility] Nucleated red blood cell per centageOrdered By: Guille Garnica on 01-09-2025 Nucleated RBC/100 WBC (Bld) [Ratio] 0 % 0-5 [facility] Partial Thromboplast Timeon 01-09-2025 aPTT Coag (Bld) [Time] 26.1 s Normal 24.1-36.2 [facility] Comment on above: Performed By: #### L 100.0100, L501.2450, L500.2500, L300.3900, L500.3400, L300.4310 ####[facility] - [facility] [id number] [place], [place], [id number] Platelet countOrdered By: Mario Garnica on 01-09-2025 Platelets (Bld) [#/Vol] 171 10*3/uL 150-450 [facility] Potassium (Unsp spec) [Mass/ Vol]Ordered By: Guille Garnica on 01-09-2025 Potassium [Moles/Vol] 3.8 mmol/L 3.3-5.[address] [facility] Prothrombin Time w/INRon INR Coag (PPP) [Relative time] 1.0 {INR} Normal [facility] Comment on above: Performed By: #### L 100.0100, L501.2450, L500.2500, L300.3900, L500.3400, L300.4310 ####[facility] [id number] [place], [place], [id number] PT Coag (PPP) [Time] 12.8 s Normal 11.7-14.9 [facility] Comment on above: Performed By: #### L 100.0100, L501.2450, L500.2500, L300.3900, L500.3400, L300.4310 ####[facility] [id number] [place], [address] Prothrombin timeOrdered By: Guille Garnica on 01-09-2025 PT Coag (PPP) [Time] 12.8 s 11.7-14.9 [facility] RBC Auto (Bld) [#/Vol]Ordere d By: Guille Garnica on 01-09-2025 RBC (Bld) [#/Vol] 4.26 10*6/uL 4.2-5.4 [facility] Serum creatinine measurement (mass/volume)Ordered By: Guille Garnica on 01-09-2025 Creatinine [Mass/Vol] 0.81 mg/dL 0.70-1.[address] [facility] Comment on above: Icterus present, Res ults may be affected. Serum globulin measurementOr dered By: Guille Garnica on 01-09-2025 Globulin (S) [Mass/Vol] 3.1 g/dL 2.2-4.2 [facility] Serum glucose measurement (m ass/volume)Ordered By: Guille Garnica on 01-09-2025 Glucose [Mass/Vol] 418 mg/dL High 70-99 [facility] Serum or plasma alanine mendoza otransferase (ALT) measurementOrdered By: Guille Garnica on 01-09-2025 ALT [Catalytic activity/Vol] 390 U/L High <35 [facility] Serum or plasma albumin froylan urement (mass/volume)Ordered By: Guille Garnica on 01-09-2025 Albumin [Mass/Vol] 4.2 g/dL 3.4-4.8 [facility] Serum or plasma alkaline charli sphatase measurementOrdered By: Guille Garnica on 01-09-2025 ALP [Catalytic activity/Vol] 416 U/L High 35-104 [facility] Serum or plasma calcium froylan urement (mass/volume)Ordered By: Guille Garnica on 01-09-2025 Calcium [Mass/Vol] 9.9 mg/dL 7.6-11.0 [facility] Serum or plasma urea nitroge n measurement (mass/volume)Ordered By: Guille Garnica on 01-09-2025 Urea nitrogen [Mass/Vol] 11 mg/dL 4-19 [facility] Sodium levelOrdered By: Guille Garnica on 01-09-2025 Sodium [Moles/Vol] 132 mmol/L Low 133-145 [facility] Total proteinOrdered By: Angelica Garnica on 01-09-2025 Protein [Mass/Vol] 7.3 g/dL 5.9-8.4 [facility] White blood cell (WBC) count Ordered By: Guille Garnica on 01-09-2025 WBC (Bld) [#/Vol] 6.4 10*3/uL 4.4-11.0 [facility] aPTT Coag (PPP) [Time]Ordere d By: Guille Garnica on 01-09-2025 aPTT Coag (Bld) [Time] 26.1 s 24.1-36.2 [facility] CNOVon 11-17-2024 CNOV Office Visit (PULMWS ) -- TELMA TINEO ([id number]) 1940 F Date Time Provider Department 11/17/24 1:00 PM ANGELIA HART PULMWS During your visit today, we recorded the following information about you: Pulse Respiration Blood pressure 72/minute 16/minute 104/62 Angelia Hart APRN.POLICE COMMANDING OFFICER 11/17/2024 3:21 PM Signed Pulmonary Medicine Patients [...] with increase in PPI. Ran out of Breo and has been out since the beginning [...] Blood Pressure Test Kit-Large Commonly known as: [employer] ARM BP MONITOR 1 Each once daily. [...] mass or definite lymphadenopathy within the chest. Seam Steamer: [facility] Transcribe Date/Time: Nov 21 2022 4:33P Dict (more content not included)... Normal [facility] Abdomen RUQon 11-14-2024 IMPRESSION: No acute abnormality. No cholelithiasis. No biliary dilatation. The spleen is normal size. Seam Steamer: [facility] Transcribe Date/Time: Nov 14 2024 6:40A Dictated by : CHANEL NARAYANAN MD This examination was interpreted and the report reviewed and electronically signed by: CHANEL NARAYANAN MD on Nov 14 2024 6:41AM [facility] [[email or web address]] DIVISION OF RADIOLOGY * * *Final Report* [...] No hydronephrosis. - DIVISION OF RADIOLOGY Provider, Aisha [facility] - 11/14/2024 * * *Final Report* * * DATE OF EXAM: Nov 12 2024 2:54PM [facility] 1032 - US ABD RIGHT UPPER QUADRANT [...] biliary dilatation. The spleen is normal size. Seam Steamer: [employer] Transcribe Date/Time: Nov 14 2024 6:40A Dictated by : CHANEL NARAYANAN MD This examination was interpreted and the report reviewed and electronically signed by: CHANEL NARAYANAN MD on Nov 14 2024 6:41AM EST [facility] US Abdomen RUQOrdered By: Molly carlson Provider on 11-14-2024 [facility] US ABD RIGHT UPPER QUADRANTo n 11-12-2024 US ABD RIGHT UPPER QUADRANT * * *Final Report* * * DATE OF EXAM: Nov 12 2024 2:54PM U 1032 - US ABD RIGHT UPPER QUADRANT [...] biliary dilatation. The spleen is normal size. Seam Steamer: [employer] Transcribe Date/Time: Nov 14 2024 6:40A Dictated by : CHANEL NARAYANAN MD This examination was interpreted and the report reviewed and electronically signed by: CHANEL NARAYANAN MD on Nov 14 2024 6:41AM EST [id number] Normal [facility] US ABD SPLEEN -NBon 11-12-19 US ABD SPLEEN -NB * * *Final Report* * * DATE OF EXAM: Nov 12 2024 2:54PM [facility] 1232 - US ABD SPLEEN -NB / [...] biliary dilatation. The spleen is normal size. Seam Steamer: [employer] Transcribe Date/Time: Nov 14 2024 6:40A Dictated by : CHANEL NARAYANAN MD This examination was interpreted and the report reviewed and electronically signed by: CHANEL NARAYANAN MD on Nov 14 2024 6:41AM EST [id number] Normal [facility] US Abdomen RUQon 11-12-2024 Radiology Study observation (narrative) [facility] CNTHERAPYon 11-09-2024 CNTHERAPY OT/PT/Speech Visit (SPMBME) -- TELMA TINEO ([id number]) 1940 F Date Time Provider Department 11/09/24 10:30 AM MELIZA [facility] Date Time Provider Department Center 11/09/2024 10:30 AM [id number] Reason for Visit: Speech Instrumental Swallow [...] with meals. - Blood Pressure Test Kit-Large ([employer] ARM BP MONITOR) 1 Each once daily. - Methylsulfonylmethane (MSM) 1,000 mg cap Take 1 capsule by mouth once daily. Letter Text Normal [facility] RF videography Hypopharynx a nd Esophagus [...] and Hearing therapist report for further evaluation Seam Steamer: [employer] Transcribe Date/Time: Nov 09 2024 1:03P Dictated by : KEVON EUBANKS MD This examination was interpreted and the report reviewed and electronically signed by: KEVON EUBANKS MD on Nov 09 2024 1:11PM [facility] RADIOLOGY Provider, [facility] - 11/09/2024 * * *Final Report* * [...] and Hearing therapist report for further evaluation Seam Steamer: [employer] Transcribe Date/Time: Nov 09 2024 1:03P Dictated by : KEVON EUBANKS MD This examination was interpreted and the report reviewed and electronically signed by: KEVON EUBANKS MD on Nov 09 2024 1:11PM EST [facility] Radiology Study observation (narrative) [facility] RF videography Hypopharynx a nd Esophagus Views W liquid and paste contrast PO during swallowingOrdered By: Aisha Provider on 11-09-2024 [facility] XR MOD BARIUM SWALLOW W SPELacy Benjamin 11-09-2024 XR MOD BARIUM SWALLOW W [...] and Hearing therapist report for further evaluation Seam Steamer: [facility] Transcribe Date/Time: Nov 09 2024 1:03P Dictated by : KEVON EUBANKS MD This examination was interpreted and the report reviewed and electronically signed by: KEVON EUBANKS MD on Nov 09 2024 1:11PM EST [id number] [facility] 11-06-2024 [facility] Telephone (FAMPWS) -- TELMA TINEO ([id number]) 1940 F Date Time Provider Department 11/06/24 [facility] During your visit today, we recorded [...] the same as she was having. MAGNUS Warren, Henok Becerril MD 11/06/2024 11:24 AM Signed [place] set up for endo. Call if pain worsens, light diet. Recheck lipase and follow up next week. Avoid any etoh. Get ruq us. Li Allison MA 11/06/2024 12:53 PM Signed Spoke with patients son, Timothy. Informed and verbalized understanding. Endo appt already [...] Elevated lipase [R74.8] Order(s):LIPASE [SQLIPA] Order #: [id number] FUTURE US ABD RIGHT UPPER QUADRANT [[id number]] Order #: [id number] FUTURE CONSULT TO ENDOCRINOLOGY [9003] Order #: [id number]: 1 FUTURE Prescriptions as of 11/14/2024 - [...] with meals. - Blood Pressure Test Kit-Large ([employer] ARM BP MONITOR) 1 Each once daily. 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 *05/20/2023 Diagnosed: 05/20/2023 Neck pain [M54.2] 05/20/2023 05/20/2023 Diagnosed: 05/20/2023 Cerebrovascular accident (CVA) (HCC) [I63.9] 05/20/2023 Diagnosed: 05/20/2023 Encounter Status:Closed by HENOK MARTINEZ on 11/14/24 Normal [facility] ALBUMIN/CREATININE RATIO, UR INEon 11-05-2024 Albumin DL <= 20 mg/L (U) [Mass/Vol] 43.1 mg/L Normal [facility] Comment on above: Order Comment: Speci men Type: URINE SPECIMEN Ordering Facility: [facility] Address: [address] [place] [address] Performed By: #### U ACR #### [facility] CLIA [id number] [address] [place] [address] [place] Albumin/Creatinine (U) [Mass ratio] 53 mg/g High <30 [facility] Comment on above: Order Comment: Speci men Type: URINE SPECIMEN Ordering Facility: [facility] Address: [address] [place] [address] Result Comment: Adul t Male and Female Nephrotic Criteria: <30 mg/g is considered normal to mildly increased 30-300 mg/g is considered moderately increased >300 mg/g is considered severely increased KDIGO. (2013). KDIGO 2012 Clinical Practice Guideline for the Evaluation and Management of Chronic Kidney Disease. Official Journal of the International Society of Nephrology, 3(1), 1-150. Performed By: #### U ACR #### [facility] CLIA [id number] [address] [place] [address] [place] Creatinine (U) [Mass/Vol] 81.6 mg/dL Normal 20.0-300.0 [facility] Comment on above: Order Comment: Speci men Type: URINE SPECIMEN Ordering Facility: [facility] Address: [address] [place] [address] Performed By: #### U ACR #### [facility] CLIA [id number] [address] [place] [address] [place] CBC W Auto Differential pane l (Bld)on 11-05-2024 Basophils (Bld) [#/Vol] 0.04 10*3/uL Normal <0.11 [facility] Comment on above: Order Comment: Speci men Type: BLOOD SPECIMEN Ordering Facility: [facility] Address: [address] [place] [address] Performed By: #### 5 7021-8 #### [facility] CLIA [id number] [address] [place] [address] [place] Basophils/100 WBC (Bld) 0.5 % Normal [facility] Comment on above: Order Comment: Speci men Type: BLOOD SPECIMEN Ordering Facility: [facility] Address: [address] [place] [address] Performed By: #### 5 7021-8 #### [facility] CLIA [id number] [address] [place] [address] [place] Differential cell count method Nom (Bld) Auto Normal [facility] Comment on above: Order Comment: Speci men Type: BLOOD SPECIMEN Ordering Facility: [facility] Address: [address] [place] [address] Performed By: #### 5 7021-8 #### [facility] CLIA [id number] [address] [place] [address] [place] Eosinophils (Bld) [#/Vol] 0.19 10*3/uL Normal <0.46 [facility] Comment on above: Order Comment: Speci men Type: BLOOD SPECIMEN Ordering Facility: [facility] Address: [address] [place] [address] Performed By: #### 5 7021-8 #### [facility] CLIA [id number] [address] [place] [address] [place] Eosinophils/100 WBC (Bld) 2.5 % Normal [facility] Comment on above: Order Comment: Speci men Type: BLOOD SPECIMEN Ordering Facility: [facility] Address: [address] [place] [address] Performed By: #### 5 7021-8 #### [facility] CLIA [id number] [address] [place] [address] [place] Erythrocyte distribution width (RBC) [Ratio] 12.9 % Normal 11.5-15.0 [facility] Comment on above: Order Comment: Speci men Type: BLOOD SPECIMEN Ordering Facility: [facility] Address: [address] [place] [address] Performed By: #### 5 7021-8 #### [facility] CLIA [id number] [address] [place] [address] [place] Hematocrit (Bld) [Volume fraction] 39.3 % Normal 36.0-46.0 [facility] Comment on above: Order Comment: Speci men Type: BLOOD SPECIMEN Ordering Facility: [facility] Address: [address] [place] [address] Performed By: #### 5 7021-8 #### [facility] CLIA [id number] [address] [place] [address] [place] Hemoglobin (Bld) [Mass/Vol] 12.7 g/dL Normal 11.5-15.5 [facility] Comment on above: Order Comment: Speci men Type: BLOOD SPECIMEN Ordering Facility: [facility] Address: [address] [place] [address] Performed By: #### 5 7021-8 #### [facility] CLIA [id number] [address] [place], [place] [address] [place] Immature granulocytes (Bld) [#/Vol] 0.04 10*3/uL Normal <0.10 [facility] Comment on above: Order Comment: Speci men Type: BLOOD SPECIMEN Ordering Facility: [facility] Address: [address] [place] [address] Performed By: #### 5 7021-8 #### [facility] CLIA [id number] [address] [place] [address] [place] Immature granulocytes/100 WBC (Bld) 0.5 % Normal [facility] Comment on above: Order Comment: Speci men Type: BLOOD SPECIMEN Ordering Facility: [facility] Address: [address] [place] [address] Performed By: #### 5 7021-8 #### [facility] CLIA [id number] [address] [place] [address] [place] Lymphocytes (Bld) [#/Vol] 1.92 10*3/uL Normal 1.00-4.00 [facility] Comment on above: Order Comment: Speci men Type: BLOOD SPECIMEN Ordering Facility: [facility] Address: [address] [place] [address] Performed By: #### 5 7021-8 #### [facility] CLIA [id number] [address] [place] [address] [place] Lymphocytes/100 WBC (Bld) 25.6 % Normal [facility] Comment on above: Order Comment: Speci men Type: BLOOD SPECIMEN Ordering Facility: [facility] Address: [address] [place] [address] Performed By: #### 5 7021-8 #### [facility] CLIA [id number] [address] [place] [address] [place] MCH (RBC) [Entitic mass] 29.3 pg Normal 26.0-34.0 [facility] Comment on above: Order Comment: Speci men Type: BLOOD SPECIMEN Ordering Facility: [facility] Address: [address] [place] [address] Performed By: #### 5 7021-8 #### [facility] CLIA [id number] [address] [place] [address] [place] MCHC (RBC) [Mass/Vol] 32.3 g/dL Normal 30.5-36.0 [facility] Comment on above: Order Comment: Speci men Type: BLOOD SPECIMEN Ordering Facility: [facility] Address: [address] [place] [address] Performed By: #### 5 7021-8 #### [facility] CLIA [id number] [address] [place] [address] [place] MCV (RBC) [Entitic vol] 90.8 fL Normal 80.0-100.0 [facility] Comment on above: Order Comment: Speci men Type: BLOOD SPECIMEN Ordering Facility: [facility] Address: [address] [place] [address] Performed By: #### 5 7021-8 #### [facility] CLIA [id number] [address] [place] [address] [place] Monocytes (Bld) [#/Vol] 0.65 10*3/uL Normal <0.87 [facility] Comment on above: Order Comment: Speci men Type: BLOOD SPECIMEN Ordering Facility: [facility] Address: [address] [place] [address] Performed By: #### 5 7021-8 #### [facility] CLIA [id number] [address] [place] [address] [place] Monocytes/100 WBC (Bld) 8.7 % Normal [facility] Comment on above: Order Comment: Speci men Type: BLOOD SPECIMEN Ordering Facility: [facility] Address: [address] [place] [address] Performed By: #### 5 7021-8 #### [facility] CLIA [id number] [address] [place] [address] [place] Neutrophils (Bld) [#/Vol] 4.65 10*3/uL Normal 1.45-7.50 [facility] Comment on above: Order Comment: Speci men Type: BLOOD SPECIMEN Ordering Facility: [facility] Address: [address] [place] [address] Performed By: #### 5 7021-8 #### [facility] CLIA [id number] [address] [place] [address] [place] Neutrophils/100 WBC (Bld) 62.2 % Normal [facility] Comment on above: Order Comment: Speci men Type: BLOOD SPECIMEN Ordering Facility: [facility] Address: [address] [place] [address] Performed By: #### 5 7021-8 #### [facility] CLIA [id number] [address] [place] [address] [place] Nucleated RBC (Bld) [#/Vol] 10*3/uL Normal <0.01 [facility] Comment on above: Order Comment: Speci men Type: BLOOD SPECIMEN Ordering Facility: [facility] Address: [address] [place] [address] Performed By: #### 5 7021-8 #### [facility] CLIA [id number] [address] [place] [address] [place] Nucleated RBC/100 WBC (Bld) [Ratio] 0.0 /100 WBC Normal [facility] Comment on above: Order Comment: Speci men Type: BLOOD SPECIMEN Ordering Facility: [facility] Address: [address] [place] [address] Performed By: #### 5 7021-8 #### [facility] CLIA [id number] [address] [place] [address] [place] Platelet mean volume (Bld) [Entitic vol] 13.3 fL High 9.0-12.7 [facility] Comment on above: Order Comment: Speci men Type: BLOOD SPECIMEN Ordering Facility: [facility] Address: [address] [place] [address] Performed By: #### 5 7021-8 #### [facility] CLIA [id number] [address] [place] [address] [place] Platelets (Bld) [#/Vol] 209 10*3/uL Normal 150-400 [facility] Comment on above: Order Comment: Speci men Type: BLOOD SPECIMEN Ordering Facility: [facility] Address: [address] [place] [address] Performed By: #### 5 7021-8 #### [facility] CLIA [id number] [address] [place] [address] [place] RBC (Bld) [#/Vol] 4.33 10*6/uL Normal 3.90-5.20 [facility] Comment on above: Order Comment: Speci men Type: BLOOD SPECIMEN Ordering Facility: [facility] Address: [address] [place] [address] Performed By: #### 5 7021-8 #### [facility] CLIA [id number] [address] [place] [address] [place] WBC (Bld) [#/Vol] 7.49 10*3/uL Normal 3.70-11.00 [facility] Comment on above: Order Comment: Speci men Type: BLOOD SPECIMEN Ordering Facility: [facility] Address: [address] [place] [address] Performed By: #### 5 7021-8 #### [facility] CLIA [id number] [address] [place] [address] [place] Comprehensive metabolic 2000 panelon 11-05-2024 Albumin [Mass/Vol] 4.3 g/dL Normal 3.9-4.9 [facility] Comment on above: Order Comment: Speci men Type: BLOOD SPECIMEN Ordering Facility: [facility] Address: [address] [place] [address] Performed By: #### 3 040-3, 46117-2, 55650-1 #### [facility] CLIA [id number] [address] [place] [address] [place] ALP [Catalytic activity/Vol] 123 U/L Normal 34-123 [facility] Comment on above: Order Comment: Speci men Type: BLOOD SPECIMEN Ordering Facility: [facility] Address: [address] [place] [address] Performed By: #### 3 040-3, 23147-7, #### [facility] CLIA [id number] [address] [place] [address] [place] ALT [Catalytic activity/Vol] 19 U/L Normal 7-38 [facility] Comment on above: Order Comment: Speci men Type: BLOOD SPECIMEN Ordering Facility: [facility] Address: [address] [place] [address] Performed By: #### 3 040-3, 06340-0, #### [facility] CLIA [id number] [address] [place] [address] [place] Anion gap [Moles/Vol] 11 mmol/L Normal 8-15 [facility] Comment on above: Order Comment: Speci men Type: BLOOD SPECIMEN Ordering Facility: [facility] Address: [address] [place] [address] Performed By: #### 3 040-3, 05527-5, 87429-8 #### [facility] CLIA [id number] [address] [place], [place] [address] [place] AST [Catalytic activity/Vol] 20 U/L Normal 13-35 [facility] Comment on above: Order Comment: Speci men Type: BLOOD SPECIMEN Ordering Facility: [facility] Address: [address] [place] [address] Performed By: #### 3 040-3, 51419-6, 21466-6 #### [facility] CLIA [id number] [address] [place], [place] [address] [place] Bilirubin [Mass/Vol] 0.5 mg/dL Normal 0.2-1.3 [facility] Comment on above: Order Comment: Speci men Type: BLOOD SPECIMEN Ordering Facility: [facility] Address: [address] [place] [address] Performed By: #### 3 040-3, 50885-8, 87398-7 #### [facility] CLIA [id number] [address] [place] [address] [place] Calcium [Mass/Vol] 9.9 mg/dL Normal 8.5-10.2 [facility] Comment on above: Order Comment: Speci men Type: BLOOD SPECIMEN Ordering Facility: [facility] Address: [address] [place] [address] Performed By: #### 3 040-3, 52827-1, #### [facility] CLIA [id number] [address] [place] [address] [place] Chloride [Moles/Vol] 103 mmol/L Normal 98-107 [facility] Comment on above: Order Comment: Speci men Type: BLOOD SPECIMEN Ordering Facility: [facility] Address: [address] [place] [address] Performed By: #### 3 040-3, 46688-9, 00509-2 #### [facility] CLIA [id number] [address] [place], [place] [address] [place] CO2 [Moles/Vol] 24 mmol/L Normal 22-30 [facility] Comment on above: Order Comment: Speci men Type: BLOOD SPECIMEN Ordering Facility: [facility] Address: [address] [place] [address] Performed By: #### 3 040-3, 14607-9, 65590-0 #### [facility] CLIA [id number] [address] [place], [place] [address] [place] Creatinine [Mass/Vol] 0.74 mg/dL Normal 0.58-0.96 [facility] Comment on above: Order Comment: Dayron stinson Type: BLOOD SPECIMEN Ordering Facility: [facility] Address: [address] [place] [address] Performed By: #### 3 040-3, 72676-0, 33682-4 #### [facility] CLIA [id number] [address] [place] [address] [place] Creatinine and Glomerular filtration rate.predicted panel (S/P/Bld) 80 mL/min/1.73m??? Normal >=60 [facility] Comment on above: Order Comment: Dayron stinson Type: BLOOD SPECIMEN Ordering Facility: [facility] Address: [address] [place] [address] Result Comment: Kya mated Glomerular Filtration Rate [...] actual GFR. Performed By: #### 3 040-3, 33716-0, 63404-8 #### [facility] CLIA [id number] [address] [place] [address] [place] Glucose [Mass/Vol] 316 mg/dL High 74-99 [facility] Comment on above: Order Comment: Dayron stinson Type: BLOOD SPECIMEN Ordering Facility: [facility] Address: [address] [place] [address] Result Comment: The [place] Diabetes Association (ADA) provides guidance for cutoff [...] Standards of Medical Care in Diabetes 2016, [place] Diabetes Association. Diabetes Care. 2016.39(Suppl 1). Performed By: #### 3 040-3, 62862-4, #### [facility] CLIA [id number] [address] [place] [address] [place] Potassium [Moles/Vol] 4.4 mmol/L Normal 3.7-5.1 [facility] Comment on above: Order Comment: Speci men Type: BLOOD SPECIMEN Ordering Facility: [facility] Address: [address] [place] [address] Performed By: #### 3 040-3, , #### [facility] CLIA [id number] [address] [place] [address] [place] Protein [Mass/Vol] 7.3 g/dL Normal 6.3-8.0 [facility] Comment on above: Order Comment: Speci men Type: BLOOD SPECIMEN Ordering Facility: [facility] Address: [address] [place] [address] Performed By: #### 3 040-3, , #### [facility] CLIA [id number] [address] [place] [address] [place] Sodium [Moles/Vol] 138 mmol/L Normal 136-144 [facility] Comment on above: Order Comment: Speci men Type: BLOOD SPECIMEN Ordering Facility: [facility] Address: [address] [place] [address] Performed By: #### 3 040-3, , #### [facility] CLIA [id number] [address] [place] [address] [place] Urea nitrogen [Mass/Vol] 11 mg/dL Normal 7-21 [facility] Comment on above: Order Comment: Dayron stinson Type: BLOOD SPECIMEN Ordering Facility: [facility] Address: [address] [place] [address] Performed By: #### 3 040-3, 37550-2, 02913-1 #### [facility] CLIA [id number] [address] [facility] [id number] [address] [place] HbA1c (Bld)on 11-05-2024 Average glucose Estimated from glycated hemoglobin (Bld) [Mass/Vol] 258 mg/dL Normal [facility] Comment on above: Order Comment: Dayron stinson Type: BLOOD SPECIMEN Ordering Facility: [facility] Address: [address] [place] [address] Result Comment: eAG: (Estimated average glucose) is a calculated value from HgbA1c and is medical service representative of the average blood glucose level in the last 2-3 month period. Performed By: #### 5 7021-8 #### [id number] [address] [place] [address] [place] HbA1c (Bld) [Mass fraction] 10.6 % High 4.3-5.6 [facility] Comment on above: Order Comment: Dayron stinson Type: BLOOD SPECIMEN Ordering Facility: [facility] Address: [address] [place] [address] Result Comment: Amer [place] Diabetes Association guidelines indicate that patients with HgbA1c in the range 5.7-6.4% are at increased risk for development of diabetes, and intervention by lifestyle modification may be beneficial. HgbA1c greater or equal to 6.5% is considered diagnostic of diabetes. Performed By: #### 5 7021-8 #### [facility] [id number] [address] [place] [address] [place] Lipase SerPl-cCncon 11-05-19 25 Lipase [Catalytic activity/Vol] 123 U/L High 16-61 [facility] Comment on above: Order Comment: Dayron stinson Type: BLOOD SPECIMEN Ordering Facility: [facility] Address: [address] [place] [address] Performed By: #### 3 040-3, 81156-1, 81499-2 #### [facility] CLIA [id number] [address] [place] [address] [place] Lipid 1996 panelon 5 Cholesterol [Mass/Vol] 139 mg/dL Normal <200 [facility] Comment on above: Order Comment: Speci men Type: BLOOD SPECIMENOrdering Facility: [facility] Address: [address] [place] [address] Result Comment: <200 mg/dL, Desirable 200-239 mg/dL, Borderline high >239 mg/dL, High Performed By: #### 3 040-3, 45134-2, ####[facility] [id number] [address] [place] Cholesterol in HDL [Mass/Vol] 56 mg/dL Normal >39 [facility] Comment on above: Order Comment: Speci men Type: BLOOD SPECIMENOrdering Facility: [facility] Address: [address] [place] [address] Result Comment: 40-5 9 mg/dL, Acceptable >59 mg/dL, High: Negative risk factor for coronary heart disease <40 mg/dL, Low: Positive risk factor for coronary heart disease Performed By: #### 3 040-3, 21957-4, 76200-0 ####[facility] [id number] [address] [place] Cholesterol in LDL [Mass/Vol] 64 mg/dL Normal <100 [facility] Comment on above: Order Comment: Speci men Type: BLOOD SPECIMENOrdering Facility: [facility] Address: [address] [place] [address] Result Comment: <100 mg/dL, Optimal 100-129 mg/dL, Near optimal/above optimal 130-159 mg/dL, Borderline high 160-189 mg/dL, High >189 mg/dL, Very high Secondary prevention optimal LDL Cholesterol levels are recommended to be < 70 mg/dL Performed By: #### 3 040-3, 61656-1, 61585-3 ####[facility] [id number] [place] [address] [place] Cholesterol in LDL/Cholesterol in HDL [Mass ratio] 1.14 {ratio} Normal <2.54 [facility] Comment on above: Order Comment: Speci men Type: BLOOD SPECIMENOrdering Facility: [facility] Address: [address] [place] [address] Result Comment: Refe rence: 1. National Cholesterol Education Program ATP III Guideline At-A-Glance Quick Desk Reference: National Heart, Lung, and Blood [place]. National Institutes of Health. 2001: NIH Publication No. 01-3305. 2. An International Atherosclerosis Society position paper: global recommendations for the management of dyslipidemia: executive summary, Atherosclerosis. 2014: 232(2):410-413. Performed By: #### 3 040-3, 27049-5, 09427-3 ####[facility] [id number] [place] [address] [place] Cholesterol in VLDL [Mass/Vol] 19 mg/dL Normal <30 [facility] Comment on above: Order Comment: Speci men Type: BLOOD SPECIMENOrdering Facility: [facility] Address: [address] [place] [address] Performed By: #### 3 040-3, 93835-0, 96323-0 ####[facility] [id number] [place] [address] [place] Cholesterol non HDL [Mass/Vol] 83 mg/dL Normal <130 [facility] Comment on above: Order Comment: Speci men Type: BLOOD SPECIMENOrdering Facility: [facility] Address: [address] [place] [address] Result Comment: <130 mg/dL, Optimal 130-159 mg/dL, Near optimal/above optimal 160-189 mg/dL, Borderline high 190-219 mg/dL, High >219 mg/dL, Very high Secondary prevention optimal non HDL Cholesterol levels are recommended to be <100 mg/dL Performed By: #### 3 040-3, 24274-5, 96618-0 ####[facility] [id number] [address] [address] [place] Cholesterol.total/Chol esterol in HDL [Mass ratio] 2.48 {ratio} Normal <5.10 [facility] Comment on above: Order Comment: Speci men Type: BLOOD SPECIMENOrdering Facility: [facility] Address: [address] [place] [address] Performed By: #### 3 040-3, 85815-0, 73209-0 ####[facility] [id number] [place] [address] [place] FASTING TIME 12 hrs Normal [facility] Comment on above: Order Comment: Speci men Type: BLOOD SPECIMENOrdering Facility: [facility] Address: [address] [place] [address] Performed By: #### 3 040-3, 35881-5, 22834-5 ####[facility] [id number] [address] [address] [place] Triglyceride [Mass/Vol] 96 mg/dL Normal <150 [facility] Comment on above: Order Comment: Speci men Type: BLOOD SPECIMENOrdering Facility: [facility] Address: [address] [place] [address] Result Comment: <150 mg/dL, Normal 150-199 mg/dL, Borderline high 200-499 mg/dL, High >499 mg/dL, Very high Performed By: #### 3 040-3, 82705-1, 50710-6 ####[facility] [id number] [address] [address] [place] XR CHEST 2V [...] tissues: Unremarkable. IMPRESSION: No acute radiographic abnormality. Seam Steamer: [facility] Transcribe Date/Time: Nov 05 2024 12:03P Dictated by : VELASQUEZ BENTON MD This examination was interpreted and the report reviewed and electronically signed by: VELASQUEZ BENTON MD on Nov 05 2024 12:05PM EST [id number] Normal [facility] XR Chest PA and Lateralon IMPRESSION: No acute radiographic abnormality. Seam Steamer: [facility] Transcribe Date/Time: Nov 05 2024 12:03P Dictated [...] soft tissues: Unremarkable. DIVISION OF RADIOLOGY Provider, [facility] - 11/05/2024 * * *Final Report* * [...] Unremarkable. IMPRESSION IMPRESSION: No acute radiographic abnormality. Seam Steamer: [facility] Transcribe Date/Time: Nov 05 2024 12:03P Dictated by : VELASQUEZ BENTON MD This examination was interpreted and the report reviewed and electronically signed by: VELASQUEZ BENTON MD on Nov 05 2024 12:05PM EST [facility] Radiology Study observation (narrative) [facility] XR Chest PA and LateralOrder ed By: [facility] Provider on 11-05-2024 [facility] CNOVon 11-04-2024 CNOV Office Visit ([facility] ) -- TELMA TINEO ([id number]) 1940 F Date Time Provider Department 11/04/24 [...] day with meals. Blood Pressure Test Kit-Large ([employer] ARM BP MONITOR) 1 Each once daily. [...] General appearanc (more content not included)... Normal [facility] CNOVon 10-13-2024 CNOV Office Visit ([facility]AMPWS ) -- TELMA TINEO ([id number]) 1940 F Date Time Provider Department 10/13/24 2:40 PM [place] REINA During your visit today, we recorded the following information about you: Temperature Pulse Respiration Blood pressure 99.3 degrees 67/minute 16/minute 124/68 Weight 73.5 kg Virginia Reina, [employer]ING OFFICER 10/13/2024 3:06 PM Signed This is a [...] day with meals. Blood Pressure Test Kit-Large ([employer] ARM BP MONITOR) 1 Each once daily. [...] bronchitis, unsp (more content not included)... Normal [facility] PT D/C Summary (1)on 024 PT D/C Summary (1) [facility] Physical Therapy [facility] [address] [place] [address] / REHABILITATION SERVICES DISCHARGE SUMMARY MR#: [id number] Acct: [id number] Name: TELMA TINEO Rep #: [id number] : 1940 84 From: Zeke Miguel PT, Cert. T, [facility] Referring Dr.: Dr. Henok Martinez MD Status: [...] > right NEURO: denies paresthesia/tingling ,reflexes C5-6-7 / CERVICAL ROM: flexion WFL ,extension WFL loss [...] please feel free to call me at [phone]. Thank you for the referral of this patient. Sincerely, Zeke Miguel PT, Yana HELMST, OCS Balance/Gait/Functional tests Balance/Special Test Scores Oswestry Neck Score: 23 Improvement % Improvement: 90 09/17/24 1713 CC: Dr. Henok Martinez MD JLA Signed Normal [facility] Inital Evaluation (1) - PTon 07-16-2024 Inital Evaluation (1) - PT [facility] Physical Therapy [facility] [place] [address] / REHABILITATION SERVICES INITIAL EVALUATION MR#: [id number] Acct: [id number] Name: TELMA TINEO Rep #: [id number] : 1940 84 From: Yana Sandy PT. T, OCS Referring Dr.: Dr. Henok Martinez MD Status: REG RCR Insurance: MEDICARE PART A B [facility] Patient's Visit Information Visit Information Visit Information: TELMA TINEO is a 84 year old F referred to Physical Therapy by Dr. Henok Martinez MD with a diagnosis of CERVICAL RADICULOPATHY. Date of Evaluation: 07/16/24 Physical Therapist: Zeke Miguel PT, Cert T, OCS Visit Plan Frequency: 2x /Week Duration: [...] factors heat and ice. Denies paresthesia/tingling-. Denies GATES/nausea/tinnitus /dizziness. Patient pain affects sleeping. Patient initially has some radicular symptoms . Patient condition affects QOL and function. Patient goals decrease pain. SOCIAL: lives alone Pain Left: Pain Intensity (Out of 10): 5 Pain Intensity Range: 10 Objective Objective: POSTURE:rounded shoulder head forward PALAPTION: tender UT/levator/scalenes left > right NEURO: denies paresthesia/tingling ,reflexes C5-6-7 / CERVICAL ROM: flexion min loss ,extension mod/severe [...] to be FAXED BACK to us at [phone] for Medicare purposes. For Medicare only, by signing this I certify the plan of care. Please let me know if there are questions or concerns regarding this plan of care. Physician Signature: Date: 07/17 (more content not included)... Normal [facility] Neurology Visit Reporton Neurology Visit Report [facility] [address], [address] [place] [address] OFFICE VISIT Date of Service: 07/09/24 MR#: [id number] Acct: [id number] Name: TELMA TINEO Rep #: [id number] : 1940 Provider: Dr. Jatinder arrieta MD Age/Sex: 84/F [place] [facility] [place] Status: Signed HPI HPI Chief Complaint: Details: [...] and 26/30 in May 2023. She speaks [place]an as her eastern shoshone language, and [place] as her second language. She was previously [...] were r (more content not included)... Normal [facility] CNOVon 07-01-2024 [facility] -- TELMA TINEO ([id number]) 1940 F Date Time Provider Department 07/01/24 3:40 PM HENOK MARTINEZ During your visit today, we [...] arm pain with chest pain. Which facility: [facility] Date of visit: 06/25/24 Diagnosis: [...] day with meals. Blood Pressure Test Kit-Large ([employer] ARM BP MONITOR) 1 Each once daily. [...] Shingrix Vaccine(1 of 2) Never done Covid-19 Vaccine( season) due on 06/28/2024 Influenza Vaccine(1) due [...] nourished. Skin (more content not included)... Normal [facility] 12 Lead EKGon 06-25-2024 12 Lead EKG [facility] Cardiovascular Services [address] [place] [address] 12 Lead EKG 06/25/24 1529 MR#: [id number] Acct: [id number] Name: TELMA TINEO Rep #: [id number] : 1940 84 From: Gerald Mckeon MD Attending Dr: Status: DEP ER [...] consider anterolateral ischemia Abnormal ECG Confirmed by Gerald Mckeon ([id number]), editor in chief CARLOS HARRIS ([id number]) on 06/26/2024 8:19:14 AM Referred By: Confirmed By:Gerald Mckeon 06/26/24 0819 Date Gerald Mckeon MD CC: Dr. Guille Garnica MD; Dr. Henok Martinez MD Signed Normal [facility] Basic Metabolic Profile (BMP )on 06-25-2024 BUN/CRE 19.6 RATIO Normal 10-20 [facility] Comment on above: Order Comment: 1 Y Performed By: #### L 501.5425, L500.2500, L100.0100 #### [facility] Laboratory [address] [place], [address] CA,Total 9.6 mg/dL Normal 8.5-10.1 [facility] Comment on above: Order Comment: 1 Y Performed By: #### L 501.5425, L500.2500, L100.0100 #### [facility] [address] [place], [address] Chloride [Moles/Vol] 106 mmol/L Normal 98-107 [facility] Comment on above: Order Comment: 1 Y Performed By: #### L 501.5425, L500.2500, L100.0100 #### [facility] [address] [place], [address] CO2 [Moles/Vol] 24.0 mmol/L Normal 21.0-32.0 [facility] Comment on above: Order Comment: 1 Y Performed By: #### L 501.5425, L500.2500, L100.0100 #### [facility] [address] [place], [address] Creatinine [Mass/Vol] 0.87 mg/dL Normal 0.55-1.[address] [facility] Comment on above: Order Comment: 1 Y Result Comment: The validity of the calculated GFR GFRAA in patients over 70 years has not been determined. Clinical correlation is essential. Performed By: #### L 501.5425, L500.2500, L100.0100 #### [facility] [address] [place], [address] ECRCL 43.36 ml/min Normal [facility] Comment on above: Order Comment: 1 Y Performed By: #### L 501.5425, L500.2500, L100.0100 #### [facility] [address] [place], [address] EST GFR - AA 80 mL/min Normal >60 [facility] Comment on above: Order Comment: 1 Y Result Comment: Afri can Serbian GFR Calc Performed By: #### L 501.5425, L500.2500, L100.0100 #### [facility] [address] [place], [address] GAP 6 Normal 5-15 [facility] Comment on above: Order Comment: 1 Y Performed By: #### L 501.5425, L500.2500, L100.0100 #### [facility] [address] [place], [address] GFR/1.73 sq M.predicted among non-blacks MDRD (S/P/Bld) [Vol rate/Area] 66 mL/min/{1.73_m2} Normal >60 [facility] Comment on above: Order Comment: 1 Y Result Comment: Non- GFR Calc Performed By: #### L 501.5425, L500.2500, L100.0100 #### [facility] [address] [place], [address] Glucose [Mass/Vol] 273 mg/dL High 74-106 [facility] Comment on above: Order Comment: 1 Y Result Comment: Gluc ose result greater than or equal to 200 mg/dL suggests DIABETES MELLITUS per A.D.A. criteria. Performed By: #### L 501.5425, L500.2500, L100.0100 #### [facility] [address] [place], [address] Potassium [Moles/Vol] 4.7 mmol/L Normal 3.5-5.[address] [facility] Comment on above: Order Comment: 1 Y Performed By: #### L 501.5425, L500.2500, L100.0100 #### [facility] [address] [place], [address] Sodium [Moles/Vol] 136 mmol/L Normal 136-145 [facility] Comment on above: Order Comment: 1 Y Performed By: #### L 501.5425, L500.2500, L100.0100 #### [facility] [address] [place], [address] Urea nitrogen [Mass/Vol] 17 mg/dL Normal 7-18 [facility] Comment on above: Order Comment: 1 Y Performed By: #### L 501.5425, L500.2500, L100.0100 #### [facility] [address] [place], [address] Brain/Head without Contrasto n 06-25-2024 Brain/Head without Contrast [facility] Imaging Services [address] [place] [address] Brain/Head without Contrast MR#: [id number] Acct: [id number] Name: TELMA TINEO Rep #: [id number] : 1940 F 84 From: Drew Walter DO PCP: Dr. Henok Martinez MD Status: [facility] Study: Brain/Head without Contrast Date of Exam: 05/29 07/21 Exam# [id number] Ordering Dr: Guille Garnica MD [id number] STUDY: CT BRAIN WITHOUT CONTRAST REASON FOR [...] Signed: Drew Walter DO at 16:26 EDT , CC: Dr. Guille Garnica MD; Dr. Henok Martinez MD Seam Steamer: Signed Normal [facility] CBC W/Diff, Automatedon 08- Absolute Lymph 1.29 X10 3/uL Normal 0.83-4.51 [facility] Comment on above: Performed By: #### L 501.5425, L500.2500, L100.0100 #### [facility] [address] [place], [address] Absolute Neut 7.1 X10 3/uL Normal 2.0-7.7 [facility] Comment on above: Performed By: #### L 501.5425, L500.2500, L100.0100 #### [facility] [address] [place], [address] Basophils/100 WBC (Bld) 0.3 % Normal 0-1 [facility] Comment on above: Performed By: #### L 501.5425, L500.2500, L100.0100 #### [facility] [address] [place], [address] Eosinophils/100 WBC (Bld) 1.4 % Normal 0-5 [facility] Comment on above: Performed By: #### L 501.5425, L500.2500, L100.0100 #### [facility] [address] [place], [address] Erythrocyte distribution width (RBC) [Ratio] 13.2 % Normal 11.6-14.6 [facility] Comment on above: Performed By: #### L 501.5425, L500.2500, L100.0100 #### [facility] [address] [place], [address] Hematocrit (Bld) [Volume fraction] 35.4 % Low 37-47 [facility] Comment on above: Performed By: #### L 501.5425, L500.2500, L100.0100 #### [facility] [address] [place], [address] Hemoglobin (Bld) [Mass/Vol] 11.4 g/dL Low 12.0-15.0 [facility] Comment on above: Performed By: #### L 501.5425, L500.2500, L100.0100 #### [facility] [address] [place], [address] IG% 0.300 Normal 0.0-0.9 [facility] Comment on above: Result Comment: IG% - Immature Granulocytes (promyelocytes, myelocytes and metamyelocytes) > 1% indicates that a LEFT SHIFT is Present. Performed By: #### L 501.5425, L500.2500, L100.0100 #### [facility] [address] [place], [address] Lymphocytes/100 WBC (Bld) 13.5 % Low 19-41 [facility] Comment on above: Performed By: #### L 501.5425, L500.2500, L100.0100 #### [facility] [address] [facility] [place], [address] MCH (RBC) [Entitic mass] 29.4 pg Normal 27.0-32.0 [facility] Comment on above: Performed By: #### L 501.5425, L500.2500, L100.0100 #### [facility] [address] [place], [address] MCHC (RBC) [Mass/Vol] 32.2 g/dL Normal 32-[address] [facility] Comment on above: Performed By: #### L 501.5425, L500.2500, L100.0100 #### [facility] [address] [place], [address] MCV (RBC) [Entitic vol] 91.2 fL Normal 81-99 [facility] Comment on above: Performed By: #### L 501.5425, L500.2500, L100.0100 #### [facility] [address] [place], [address] Monocytes/100 WBC (Bld) 10.5 % High 0-10 [facility] Comment on above: Performed By: #### L 501.5425, L500.2500, L100.0100 #### [facility] [address] [place], [address] Neutrophils/100 WBC (Bld) 74.0 % High 47-70 [facility] Comment on above: Performed By: #### L 501.5425, L500.2500, L100.0100 #### [facility] [address] [place], [address] Nucleated RBC (Bld) [#/Vol] 0 10*3/uL Normal 0-5 [facility] Comment on above: Performed By: #### L 501.5425, L500.2500, L100.0100 #### [facility] [address] [place], [address] Platelet mean volume (Bld) [Entitic vol] 12.3 fL High 6.2-12.0 [facility] Comment on above: Performed By: #### L 501.5425, L500.2500, L100.0100 #### [facility] [address] [place], [address] Platelets (Bld) [#/Vol] 200 10*3/uL Normal 150-450 [facility] Comment on above: Performed By: #### L 501.5425, L500.2500, L100.0100 #### [facility] [address] [place], [address] RBC (Bld) [#/Vol] 3.88 10*6/uL Low 4.2-5.4 [facility] Comment on above: Performed By: #### L 501.5425, L500.2500, L100.0100 #### [facility] Laboratory [address] [place], [address] RDW SD 43.8 fl Normal 35.1-43.9 [facility] Comment on above: Performed By: #### L 501.5425, L500.2500, L100.0100 #### [facility] Laboratory [address] [place], [address] WBC (Bld) [#/Vol] 9.5 10*3/uL Normal 4.4-11.0 [facility] Comment on above: Performed By: #### L 501.5425, L500.2500, L100.0100 #### [facility] Laboratory [address] [place], [address] Chest 1 View (Portable)on Chest 1 View (Portable) [facility] Imaging Services [address] [place] [address] Chest 1 View (Portable) MR#: [id number] Acct: [id number] Name: TELMA TINEO Rep #: [id number] : 1940 F 84 From: Drew Walter DO PCP: Dr. Henok Martinez MD Status: [facility] ER Study: Chest 1 View (Portable) Date of Exam: 06/25/24 Exam# [id number] Ordering Dr: Guille Garnica MD [id number] INDICATION: chest pain EXAMINATION/TECHNIQUE: X-RAY - XR [...] 17:44 EDT Reading Location ID and State: [facility] / [place] Tel [phone], Service support , CC: Dr. Guille Garnica MD; Dr. Henok Martinez MD Seam Steamer: Signed Normal [facility] Emergency Department Summary on 06-25-2024 Emergency Department Summary [facility] Medical Records Department [address] [place] [id number] Emergency Department Summary 06/25/24 MR#: [id number] Acct: [id number] Name: TELMA TINEO Rep #: [id number] : 1940 84 From: Guille Garnica MD [...] She denies any exacerbating or alleviating factors. [facility] Medical History (Updated 06/25/24 @ 18:05 by [...] Pressure Me (more content not included)... Normal [facility] L501.4020on 06-25-2024 TROPONIN-I HS 28 pg/mL Normal 3.0-54.0 [facility] Comment on above: Result Comment: Plea se Note: New Test Units and Gender Specific Reference Ranges. For more information see Policy Stat Procedure [place] High Sensitivity Troponin (TNIH) and attachments. Performed By: #### L 501.4020 ####[facility] [id number] [place], [address] L501.5425on 06-25-2024 TROPONIN-I HS 29 pg/mL Normal 3.0-54.0 [facility] Comment on above: Order Comment: 1 Y Result Comment: Kisha kimbrough Note: New Test Units and Gender Specific Reference Ranges. For more information see Policy Stat Procedure [place] High Sensitivity Troponin (TNIH) and attachments. Performed By: #### L 501.5425, L500.2500, L100.0100 #### [facility] Laboratory [address] [place], [address] Spine Cervical without Contr ason 06-25-2024 Spine Cervical without Contras [facility] Imaging Services [address] [place] [address] Spine Cervical without Contras MR#: [id number] Acct: [id number] Name: TELMA TINEO Rep #: [id number] : 1940 F 84 From: Drew Walter DO PCP: Dr. Henok Martinez MD Status: REG ER Study: Spine Cervical without Contras Date of Exam: 0 06/25/24 Exam# [id number] Ordering Dr: Guille Garnica MD [id number] STUDY: CT CERVICAL SPINE WITHOUT CONTRAST REASON [...] Signed: Drew Walter DO at 17:27 EDT Reading Location ID and State: [address] [place] [address] Tel [phone], Service support , CC: Dr. Guille Garnica MD; Dr. Henok Martinez MD Seam Steamer: Signed Normal [facility] XR Ribs - right Views and est PAon 06-11-2024 IMPRESSION: No acute findings. Seam Steamer: AMBER Transcribe Date/Time: Jun 11 2024 6:48A Dictated by : CHANEL NARAYANAN MD This examination was interpreted and the report reviewed and electronically signed by: CHANEL NARAYANAN MD on Jun 11 2024 6:49AM [facility] [[email or web address]] DIVISION OF RADIOLOGY * * *Final Report* [...] bony destruction. - DIVISION [facility] RADIOLOGY [facility] * * *Final Report* [...] destruction. - IMPRESSION IMPRESSION: No acute findings. Seam Steamer: AMBER Transcribe Date/Time: Jun 11 2024 6:48A Dictated by : CHANEL NARAYANAN MD This examination was interpreted and the report reviewed and electronically signed by: CHANEL NARAYANAN MD on Jun 11 2024 6:49AM EST [facility] XR Ribs - right Views and Ch est PAOrdered By: [facility] Provider on 06-11-2024 [facility] XR RIB/CHST 3V AP RIB/OBL/CH ST [...] bony destruction. - IMPRESSION: No acute findings. Seam Steamer: PSCB Transcribe Date/Time: Jun 11 2024 6:48A Dictated by : CHANEL NARAYANAN MD This examination was interpreted and the report reviewed and electronically signed by: CHANEL NARAYANAN MD on Jun 11 2024 6:49AM EST [id number] Normal [facility] XR Ribs - right Views and Ch est PAon 06-06-2024 Radiology Study observation (narrative) [facility] CNOVon 06-05-2024 CNOV Office Visit (PULMWS ) -- TELMA TINEO ([id number]) 1940 F Date Time Provider Department 06/05/24 11:45 AM NANCY MEDLEY PULMWS During your visit today, we recorded the following information about you: Weight 73.5 kg Nancy Medley MD 06/05/2024 3:10 PM Signed Respiratory [place] Note Patient name: Telma Tineo PCP: Henok [...] day with meals. Blood Pressure Test Kit-Large ([employer] ARM BP MONITOR) 1 Each once daily. [...] HPI. GI (more content not included)... Normal [facility] XR Chest PA and Lateralon IMPRESSION: No acute radiographic abnormality. Seam Steamer: AMBER Transcribe Date/Time: May 05 2024 7:52A Dictated by : NANCY CLARKE MD This examination was interpreted and the report reviewed and electronically signed by: NANCY CLARKE MD on May 05 2024 7:52AM EST DIVISION OF RADIOLOGY * * *Final [...] unchanged. No pneumothorax. DIVISION [facility] RAD[facility]OLOGY [facility] * * *Final Report* * [...] pneumothorax. IMPRESSION IMPRESSION: No acute radiographic abnormality. Seam Steamer: PSCB Transcribe Date/Time: May 05 2024 7:52A Dictated by : NANCY CLARKE MD This examination was interpreted and the report reviewed and electronically signed by: NANCY CLARKE MD on May 05 2024 7:52AM EST [facility] XR Chest PA and LateralOrder ed By: [facility] Provider on 05-05-2024 [facility] XR Chest PA and Lateralon Radiology Study observation (narrative) [facility] Cardiology Visit Reporton Cardiology Visit Report [facility] [address] [place] [address] OFFICE VISIT Date of Service: 04/28/24 MR#: [id number] Acct: [id number] Name: TELMA TINEO Rep #: [id number] : 1940 Provider: Dr. 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 Normal [facility] XR Chest PA and Lateralon IMPRESSION: Questionable lung nodules. Consider short-term follow-up. Seam Steamer: AMBER Transcribe Date/Time: Mar 05 2024 5:02P Dictated by : ZULLY CEDENO MD This examination was interpreted and the report reviewed and electronically signed by: ZULLY CEDENO MD on Mar 05 2024 5:03PM [facility] [[email or web address]] DIVISION OF RADIOLOGY * * *Final Report* [...] shows degenerative changes. DIVISION OF RADIOLOGY [facility] * * *Final Report* * [...] IMPRESSION: Questionable lung nodules. Consider short-term follow-up. Seam Steamer: AMBER Transcribe Date/Time: Mar 05 2024 5:02P Dictated by : ZULLY CEDENO MD This examination was interpreted and the report reviewed and electronically signed by: ZULLY CEDENO MD on Mar 05 2024 5:03PM EST [facility] XR Chest PA and LateralOrder ed By: [facility] Provider on 03-05-2024 [facility] XR Chest PA and Lateralon Radiology Study observation (narrative) [facility] Absolute lymphocyte countOrd ered By: Gabe Foster on 02-25-2024 Lymphocytes Auto (Unsp spec) [#/Vol] 0.73 10*3/uL 0.83-4.51 [facility] Automated lymphocyte count a s percentage of total leukocytesOrdered By: Gabe Foster on 02-25-2024 Lymphocytes/100 WBC Auto (Unsp spec) 9.0 % 19-41 [facility] Basophil percentageOrdered B y: Gabe Foster on 02-25-2024 Basophil percentage 0 SEEN /hpf 0-5 [facility] Basophils/100 WBC (Bld) 0.4 % 0-1 [facility] Chloride [Moles/Vol] 97 mmol/L 98-107 [facility] Eosinophils/100 WBC (Bld) 0.2 % 0-5 [facility] Glucose [Mass/Vol] 270 mg/dL 74-106 [facility] Comment on above: Glucose result great er than or equal to 200 mg/dLsuggests DIABETES MELLITUS per A.D.A. criteria. Hemoglobin (Bld) [Mass/Vol] 12.5 g/dL 12.0-15.0 [facility] Monocytes/100 WBC (Bld) 13.1 % 0-10 [facility] Neutrophils (Bld) [#/Vol] 6.2 10*3/uL 2.0-7.7 [facility] Neutrophils/100 WBC (Bld) 76.3 % 47-70 [facility] Potassium [Moles/Vol] 3.8 mmol/L 3.5-5.[address] [facility] Sodium [Moles/Vol] 129 mmol/L 136-145 [facility] WBC (Bld) [#/Vol] 8.1 10*3/uL 4.4-11.0 [facility] Bilirubin Test strip Ql (U)O rdered By: Gabe Foster on 02-25-2024 Bilirubin Ql (U) Negative Negative [facility] Determination of erythrocyte mean corpuscular volume (MCV)Ordered By: Gabe Foster on 02-25-2024 MCV (RBC) [Entitic vol] 87.9 fL 81-99 [facility] Erythrocyte distribution wid th ratioOrdered By: Gabe Foster on 02-25-2024 Erythrocyte distribution width (RBC) [Ratio] 12.9 % 11.6-14.6 [facility] Erythrocyte distribution wid th standard deviationOrdered By: Gabe Foster on 02-25-2024 Erythrocyte distribution width (RBC) [Entitic vol] 41.6 fL 35.1-43.9 [facility] Hematocrit Auto (Bld) [Volum e fraction]Ordered By: Gabe Foster on 02-25-2024 Hematocrit (Bld) [Volume fraction] 37.7 % 37-47 [facility] Immature granulocytes/100 WB C Auto (Bld)Ordered By: Gabe Foster on 02-25-2024 Immature granulocytes/100 WBC (Bld) 1.000 % 0.0-0.9 [facility] Comment on above: IG% - Immature Granu locytes (promyelocytes, myelocytes and metamyelocytes) > 1% indicates that a LEFT SHIFT is Present. Ketones Test strip Ql (U)Ord ered By: Gabe Foster on 02-25-2024 Ketones Ql (U) Negative Negative [facility] Laboratory - Chemistry and C hemistry - challengeOrdered By: Gabe Foster on 02-25-2024 CO2 [Moles/Vol] 24.0 mmol/L 21.0-32.0 [facility] Urea nitrogen/Creatinine [Mass ratio] 6.0 mg/mg 10- [facility] Laboratory - Hematology and Cell countsOrdered By: Gabe Foster on 02-25-2024 MCH (RBC) [Entitic mass] 29.1 pg 27.0-32.0 [facility] MCHC (RBC) [Mass/Vol] 33.2 g/dL 32-[address] [facility] Nucleated RBC/100 WBC (Bld) [Ratio] 0 % 0-5 [facility] Platelet mean volume (Bld) [Entitic vol] 12.7 fL 6.2-12.0 [facility] Platelets (Bld) [#/Vol] 224 10*3/uL 150-450 [facility] Mucus LM Ql (Urine sed)Order ed By: Gabe Foster on 02-25-2024 Mucus Ql (Urine sed) 0 SEEN /hpf [facility] Nitrite Test strip Ql (U)Ord ered By: Gabe Foster on 02-25-2024 Nitrite Ql (U) Negative Negative [facility] No Panel InformationOrdered By: Gabe Foster on 02-25-2024 Estimated Creatinine Clearance Calc 32.73 ml/min [facility] Estimated GFR (MDRD) Amer 57 mL/min >60 [facility] Comment on above: GFR Calc Estimated GFR (MDRD) Non-Af Amer 47 mL/min >60 [facility] Comment on above: Non- GFR Calc Urine RBC 0 SEEN /hpf 0-5 [facility] Protein Test strip Ql (U)Ord ered By: Gabe Foster on 02-25-2024 Protein Ql (U) 30 mg/dl Negative [facility] RBC Auto (Bld) [#/Vol]Ordere d By: Gabe Foster on 02-25-2024 RBC (Bld) [#/Vol] 4.29 10*6/uL 4.2-5.4 [facility] Serum or plasma calcium froylan urement (mass/volume)Ordered By: Gabe Foster on 02-25-2024 Calcium [Mass/Vol] 9.1 mg/dL 8.5-10.1 [facility] Serum or plasma creatinine m easurement (mass/volume)Ordered By: Gabe Foster on 02-25-2024 Creatinine [Mass/Vol] 1.16 mg/dL 0.55-1.[address] [facility] Comment on above: The validity of the calculated GFR & GFRAA in patients over 70 years has not been determined. Clinical correlation is essential. Serum or plasma urea nitroge n measurement (mass/volume)Ordered By: Gabe Foster on 02-25-2024 Urea nitrogen [Mass/Vol] 7 mg/dL 7-18 [facility] Squamous epithelial cells de tection in urine sediment by light microscopyOrdered By: Gabe Foster on 02-25-2024 Epithelial cells.squamous LM Ql (Urine sed) 0 SEEN /hpf 5-10 [facility] Thin prep Papanicolaou smear with manual screeningOrdered By: Gabe Foster on 02-25-2024 Thin prep Papanicolaou smear with manual screening 8 5-15 [facility] Urine blood detectionOrdered By: Gabe Foster on 02-25-2024 RBC Ql (U) 25 /ul Negative [facility] Urine clarityOrdered By: Hermilo Foster on 02-25-2024 Clarity (U) Clear Clear [facility] Urine color determinationOrd ered By: Gabe Foster on 02-25-2024 Color (U) Yellow Yellow [facility] Urine glucose detectionOrder ed By: Gabe Foster on 02-25-2024 Glucose Ql (U) 1000 mg/dl Normal [facility] Urine leukocyte esterase det ection by dipstickOrdered By: Gabe Foster on 02-25-2024 Leukocyte esterase Test strip Ql (U) Negative Negative [facility] Urine pHOrdered By: Gabe loyd on 02-25-2024 pH (U) 7.0 [pH] 5.0 - 8.0 [facility] Urine sediment bacteria coun t by microscopy (number/high power field)Ordered By: Gabe Foster on 02-25-2024 Bacteria LM.HPF (Urine sed) [#/Area] 0 /[HPF] None Seen [facility] Urine specific gravity measu rementOrdered By: Gabe Foster on 02-25-2024 Specific gravity (U) [Rel density] 1.005 1.002-1.030 [facility] Urine urobilinogen measureme ntOrdered By: Gabe Foster on 02-25-2024 Urobilinogen Ql (U) Normal mg/dl Normal [facility] COVID & INFLUENZA A/B & RSV NAAT, ROUTINEon 02-19-2024 FLUAV RNA GUNNER+probe Ql (Unsp spec) Not detected Not Detected [facility] FLUBV RNA GUNNER+probe Ql (Unsp spec) Not detected Not Detected [facility] Interpretation and review of laboratory results Normal [facility] RSV A RNA GUNNER+probe Ql (Unsp spec) Not detected Not Detected [facility] SARS-CoV-2 (COVID-19) RNA GUNNER+probe Ql (Resp) Not detected See comment [facility] Comment on above: The method used is R T-PCR or an equivalent NAAT method. Reference Range (the expected result in uninfected individuals): Not detected For upper respirator y tract samples, this test has been authorized by FDA under Emergenecy Use Authorization (EUA). For lower respiratory tract samples, this test was developed and its performance characteristics determined by [facility]'s [facility] It has not been cleared or approved by the FDA. [facility] is regulated under CLIA as qualified to perform high-complexity testing. This test is used for clinical purposes. It should not be regarded as investigational or for research. Test performed by [facility], [facility] [place], [address] [place] [address]. [facility] STREP A MOLECULAR (POC)on Procedural Control Valid [facility] Strep A (POCT) Negative Negative [facility] CBC W Auto Differential pane l (Bld)on 02-07-2024 Basophils (Bld) [#/Vol] 0.03 10*3/uL <0.11 k/uL [facility] Basophils/100 WBC (Bld) 0.2 % [facility] Differential cell count method Nom (Bld) Auto [facility] Eosinophils (Bld) [#/Vol] 0.12 10*3/uL <0.46 k/uL [facility] Eosinophils/100 WBC (Bld) 0.9 % [facility] Erythrocyte distribution width (RBC) [Ratio] 13.2 % 11.5 - 15.0 % [facility] Hematocrit (Bld) [Volume fraction] 38.2 % 36.0 - 46.0 % [facility] Hemoglobin (Bld) [Mass/Vol] 12.6 g/dL 11.5 - 15.5 g/dL [facility] Immature granulocytes (Bld) [#/Vol] 0.04 10*3/uL <0.10 k/uL [facility] Immature granulocytes/100 WBC (Bld) 0.3 % [facility] Lymphocytes (Bld) [#/Vol] 0.88 10*3/uL Low 1.00 - 4.00 k/uL [facility] Lymphocytes/100 WBC (Bld) 6.4 % [facility] MCH (RBC) [Entitic mass] 29.1 pg 26.0 - 34.0 pg [facility] MCHC (RBC) [Mass/Vol] 33.0 g/dL 30.5 - 36.0 g/dL [facility] MCV (RBC) [Entitic vol] 88.2 fL 80.0 - 100.0 fL [facility] Monocytes (Bld) [#/Vol] 1.00 10*3/uL High <0.87 k/uL [facility] Monocytes/100 WBC (Bld) 7.2 % [facility] Neutrophils (Bld) [#/Vol] 11.75 10*3/uL High 1.45 - 7.50 k/uL [facility] Neutrophils/100 WBC (Bld) 85.0 % [facility] Nucleated RBC (Bld) [#/Vol] <0.01 k/uL [facility] Nucleated RBC/100 WBC (Bld) [Ratio] 0.0 /100 WBC [facility] Platelet mean volume (Bld) [Entitic vol] 12.8 fL High 9.0 - 12.7 fL [facility] Platelets (Bld) [#/Vol] 189 10*3/uL 150 - 400 k/uL [facility] RBC (Bld) [#/Vol] 4.33 10*6/uL 3.90 - 5.2 0 m/uL [facility] WBC (Bld) [#/Vol] 13.82 10*3/uL High 3.70 - 11.00 k/uL [facility] Comprehensive metabolic 2000 panelon 04-12-2024 Albumin [Mass/Vol] 4.2 g/dL 3.9 - 4.9 g/dL [facility] ALP [Catalytic activity/Vol] 111 U/L 34 - 123 U/L [facility] ALT [Catalytic activity/Vol] 24 U/L 7 - 38 U/L [facility] Anion gap [Moles/Vol] 8 mmol/L Low 9 - 18 mmol/L [facility] AST [Catalytic activity/Vol] 19 U/L 13 - 35 U/L [facility] Bilirubin [Mass/Vol] 0.5 mg/dL 0.2 - 1 .3 mg/dL [facility] Calcium [Mass/Vol] 9.8 mg/dL 8.5 - 10. 2 mg/dL [facility] Chloride [Moles/Vol] 102 mmol/L 97 - 10 5 mmol/L [facility] CO2 [Moles/Vol] 26 mmol/L 22 - 30 mmol/L [facility] Creatinine [Mass/Vol] 0.79 mg/dL 0.58 - 0.96 mg/dL [facility] Estimated Glomerular Filtration Rate 74 mL/min/1.73m >=60 mL/min/1.73 m [facility] Glucose [Mass/Vol] 302 mg/dL High 74 - 99 mg/dL [facility] Potassium [Moles/Vol] 4.7 mmol/L 3.7 - 5.1 mmol/L [facility] Protein [Mass/Vol] 7.3 g/dL 6.3 - 8.0 g/dL [facility] Sodium [Moles/Vol] 136 mmol/L 136 - 144 mmol/L [facility] Urea nitrogen [Mass/Vol] 15 mg/dL 7 - 21 mg/dL [facility] Basophil percentageOrdered B y: Jatinder Khan on 10-04-2023 Basophil percentage < 1.0 mg/dL 0.55-1.02 [facility] No Panel InformationOrdered By: Jatinder Khan on 10-04-2023 Bedside Estimated GFR (eGFR) > 60.0000 mL/min >60 [facility] Basophil percentageOrdered B y: Jatinder Khan on 06-19-2023 Bilirubin [Mass/Vol] 0.50 mg/dL 0.20-1.00 [facility] Comment on above: For patients on eltr ombopag therapy, use of Dimension [place] TBIL is not recommended. Chloride [Moles/Vol] 109 mmol/L 98-107 [facility] Glucose [Mass/Vol] 173 mg/dL 74-106 [facility] Comment on above: Fasting Glucose resu lt greater than or equal to 126 mg/dL suggests DIABETES MELLITUS per A.D.A. criteria. Potassium [Moles/Vol] 4.3 mmol/L 3.5-5.[address] [facility] Protein [Mass/Vol] 7.2 g/dL 6.4-8.2 [facility] Sodium [Moles/Vol] 142 mmol/L 136-145 [facility] Laboratory - Chemistry and C hemistry - challengeOrdered By: Jatinder Khan on 06-19-2023 ALP [Catalytic activity/Vol] 101 U/L 45-117 [facility] ALT [Catalytic activity/Vol] 59 U/L 13-56 [facility] CO2 [Moles/Vol] 29.0 mmol/L 21.0-32.0 [facility] Globulin (S) [Mass/Vol] 3.4 g/dL 2.2-4.2 [facility] Urea nitrogen/Creatinine [Mass ratio] 11.7 mg/mg 10-20 [facility] No Panel InformationOrdered By: Jatinder Khan on 06-19-2023 Estimated GFR (MDRD) Amer 73 mL/min >60 [facility] Comment on above: GFR Calc Estimated GFR (MDRD) Non-Af Amer 61 mL/min >60 [facility] Comment on above: Non- GFR Calc Thyroid Stimulating Hormone (TSH) 3.62 uIU/mL 0.358-3.74 [facility] Serum or plasma albumin froylan urement (mass/volume)Ordered By: Jatinder Khan on 06-19-2023 Albumin [Mass/Vol] 3.8 g/dL 3.2-5.0 [facility] Serum or plasma albumin/glob ulin mass ratioOrdered By: Jatinder Khan on 06-19-2023 Albumin/Globulin [Mass ratio] 1.1 {ratio} 0.9-2.4 [facility] Serum or plasma calcium froylan urement (mass/volume)Ordered By: Jatinder Khan on 06-19-2023 Calcium [Mass/Vol] 9.4 mg/dL 8.5-10.1 [facility] Serum or plasma creatinine m easurement (mass/volume)Ordered By: Jatinder Khan on 06-19-2023 Creatinine [Mass/Vol] 0.94 mg/dL 0.55-1.[address] [facility] Comment on above: The validity of the calculated GFR & GFRAA in patients over 70 years has not been determined. Clinical correlation is essential. Serum or plasma urea nitroge n measurement (mass/volume)Ordered By: Jatinder Khan on 06-19-2023 Urea nitrogen [Mass/Vol] 11 mg/dL 7-18 [facility] Thin prep Papanicolaou smear with manual screeningOrdered By: Jatinderdesirae Khan on 06-19-2023 Thin prep Papanicolaou smear with manual screening 19 U/L 15-37 [facility] Thin prep Papanicolaou smear with manual screening 4 5-15 [facility] Absolute lymphocyte countOrd ered By: Dr. Foster on 04-22-2023 Lymphocytes Auto (Unsp spec) [#/Vol] 1.77 10*3/uL 0.83-4.51 [facility] Basophil percentageOrdered B y: Dr. Foster on 04-22-2023 Basophils/100 WBC (Bld) 0.4 % 0-1 [facility] Bilirubin [Mass/Vol] 0.50 mg/dL 0.20-1.00 [facility] Comment on above: For patients on eltr ombopag therapy, use of Dimension [place] TBIL is not recommended. Chloride [Moles/Vol] 106 mmol/L 98-107 [facility] Eosinophils/100 WBC (Bld) 2.2 % 0-5 [facility] Glucose [Mass/Vol] 125 mg/dL 74-106 [facility] Comment on above: Fasting Glucose resu lt from 100 to 125 mg/dL suggests IMPAIRED HOMEOSTASIS per A.D.A. criteria. Neutrophils (Bld) [#/Vol] 5.0 10*3/uL 2.0-7.7 [facility] Neutrophils/100 WBC (Bld) 65.0 % 47-70 [facility] Potassium [Moles/Vol] 4.1 mmol/L 3.5-5.[address] [facility] Protein [Mass/Vol] 6.9 g/dL 6.4-8.2 [facility] Sodium [Moles/Vol] 139 mmol/L 136-145 [facility] WBC (Bld) [#/Vol] 7.7 10*3/uL 4.4-11.0 [facility] Blood erythrocytes count (nu mber/volume)Ordered By: Dr. Foster on 04-22-2023 RBC (Bld) [#/Vol] 4.02 10*6/uL 4.2-5.4 [facility] Blood hemoglobin measurement (mass/volume)Ordered By: Dr. Foster on 04-22-2023 Hemoglobin (Bld) [Mass/Vol] 11.6 g/dL 12.0-15.0 [facility] Blood lymphocytes/100 leukoc ytesOrdered By: Dr. Foster on 04-22-2023 Lymphocytes/100 WBC (Bld) 23.0 % 19-41 [facility] Blood monocytes/100 leukocyt esOrdered By: Dr. Foster on 04-22-2023 Monocytes/100 WBC (Bld) 9.0 % 0-10 [facility] Blood platelet mean volumeOr dered By: Dr. Foster on 04-22-2023 Platelet mean volume (Bld) [Entitic vol] 12.7 fL 6.2-12.0 [facility] Determination of erythrocyte mean corpuscular volume (MCV)Ordered By: Dr. Foster on 04-22-2023 MCV (RBC) [Entitic vol] 90.3 fL 81-99 [facility] Hematocrit Auto (Bld) [Volum e fraction]Ordered By: Dr. Foster on 04-22-2023 Hematocrit (Bld) [Volume fraction] 36.3 % 37-47 [facility] Laboratory - Chemistry and C hemistry - challengeOrdered By: Dr. Foster on 04-22-2023 ALP [Catalytic activity/Vol] 102 U/L 45-117 [facility] ALT [Catalytic activity/Vol] 61 U/L 13-56 [facility] CO2 [Moles/Vol] 27.0 mmol/L 21.0-32.0 [facility] Globulin (S) [Mass/Vol] 3.3 g/dL 2.2-4.2 [facility] Urea nitrogen/Creatinine [Mass ratio] 13.2 mg/mg 10-20 [facility] Laboratory - Hematology and Cell countsOrdered By: Dr. Foster on 04-22-2023 Erythrocyte distribution width (RBC) [Entitic vol] 43.6 fL 35.1-43.9 [facility] Erythrocyte distribution width (RBC) [Ratio] 13.2 % 11.6-14.6 [facility] Immature granulocytes/100 WBC (Bld) 0.400 % 0.0-0.9 [facility] Comment on above: IG% - Immature Granu locytes (promyelocytes, myelocytes and metamyelocytes) > 1% indicates that a LEFT SHIFT is Present. MCH (RBC) [Entitic mass] 28.9 pg 27.0-32.0 [facility] Nucleated RBC/100 WBC (Bld) [Ratio] 0 % 0-5 [facility] MCHC Auto (RBC) [Mass/Vol]Or dered By: Dr. Foster on 04-22-2023 MCHC (RBC) [Mass/Vol] 32.0 g/dL 32-[address] [facility] No Panel InformationOrdered By: Dr. Foster on 04-22-2023 Estimated Creatinine Clearance Calc 37.54 ml/min [facility] Estimated GFR (MDRD) Amer 84 mL/min >60 [facility] Comment on above: GFR Calc Estimated GFR (MDRD) Non-Af Amer 70 mL/min >60 [facility] Comment on above: Non- GFR Calc Troponin I High Sensitivity 52 pg/mL 3.0-54.0 [facility] Comment on above: Please Note: New Nicko t Units and Gender Specific Reference Ranges. For more information see Policy Stat Procedure [place] High Sensitivity Troponin (TNIH) and attachments. Platelets bldOrdered By: Dr. Foster on 04-22-2023 Platelets (Bld) [#/Vol] 181 10*3/uL 150-450 [facility] Serum or plasma albumin froylan urement (mass/volume)Ordered By: Dr. Foster on 04-22-2023 Albumin [Mass/Vol] 3.6 g/dL 3.2-5.0 [facility] Serum or plasma albumin/glob ulin mass ratioOrdered By: Dr. Foster on 04-22-2023 Albumin/Globulin [Mass ratio] 1.1 {ratio} 0.9-2.4 [facility] Serum or plasma calcium froylan urement (mass/volume)Ordered By: Dr. Foster on 04-22-2023 Calcium [Mass/Vol] 9.5 mg/dL 8.5-10.1 [facility] Serum or plasma creatinine m easurement (mass/volume)Ordered By: Dr. Foster on 04-22-2023 Creatinine [Mass/Vol] 0.83 mg/dL 0.55-1.[address] [facility] Comment on above: The validity of the calculated GFR & GFRAA in patients over 70 years has not been determined. Clinical correlation is essential. Serum or plasma urea nitroge n measurement (mass/volume)Ordered By: Dr. Foster on 04-22-2023 Urea nitrogen [Mass/Vol] 11 mg/dL 7-18 [facility] Thin prep Papanicolaou smear with manual screeningOrdered By: Dr. Foster on 04-22-2023 Thin prep Papanicolaou smear with manual screening 40 U/L 15-37 [facility] Thin prep Papanicolaou smear with manual screening 6 5-15 [facility] Absolute lymphocyte countOrd ered By: Dr. Velazco on 04-05-2023 Lymphocytes Auto (Unsp spec) [#/Vol] 1.78 10*3/uL 0.83-4.51 [facility] Basophil percentageOrdered B y: Dr. Velazco on 04-05-2023 Basophils/100 WBC (Bld) 0.6 % 0-1 [facility] Chloride [Moles/Vol] 104 mmol/L 98-107 [facility] Eosinophils/100 WBC (Bld) 2.3 % 0-5 [facility] Glucose [Mass/Vol] 303 mg/dL 74-106 [facility] Comment on above: Glucose result great er than or equal to 200 mg/dLsuggests DIABETES MELLITUS per A.D.A. criteria. Neutrophils (Bld) [#/Vol] 4.6 10*3/uL 2.0-7.7 [facility] Neutrophils/100 WBC (Bld) 63.5 % 47-70 [facility] Potassium [Moles/Vol] 3.9 mmol/L 3.5-5.[address] [facility] Comment on above: Slight Hemolysis, Re sult may be falsely increased. Sodium [Moles/Vol] 136 mmol/L 136-145 [facility] WBC (Bld) [#/Vol] 7.2 10*3/uL 4.4-11.0 [facility] Blood erythrocytes count (nu mber/volume)Ordered By: Dr. Velazco on 04-05-2023 RBC (Bld) [#/Vol] 4.11 10*6/uL 4.2-5.4 [facility] Blood hemoglobin measurement (mass/volume)Ordered By: Dr. Velazco on 04-05-2023 Hemoglobin (Bld) [Mass/Vol] 12.0 g/dL 12.0-15.0 [facility] Blood lymphocytes/100 leukoc ytesOrdered By: Dr. Velazco on 04-05-2023 Lymphocytes/100 WBC (Bld) 24.6 % 19-41 [facility] Blood monocytes/100 leukocyt esOrdered By: Dr. Velazco on 04-05-2023 Monocytes/100 WBC (Bld) 8.6 % 0-10 [facility] Blood platelet mean volumeOr dered By: Dr. Velazco on 04-05-2023 Platelet mean volume (Bld) [Entitic vol] 12.9 fL 6.2-12.0 [facility] Determination of erythrocyte mean corpuscular volume (MCV)Ordered By: Dr. Velazco on 04-05-2023 MCV (RBC) [Entitic vol] 91.2 fL 81-99 [facility] Hematocrit Auto (Bld) [Volum e fraction]Ordered By: Dr. Velazco on 04-05-2023 Hematocrit (Bld) [Volume fraction] 37.5 % 37-47 [facility] Laboratory - Chemistry and C hemistry - challengeOrdered By: Dr. Velazco on 04-05-2023 CO2 [Moles/Vol] 24.0 mmol/L 21.0-32.0 [facility] Urea nitrogen/Creatinine [Mass ratio] 12.0 mg/mg 10-20 [facility] Laboratory - Hematology and Cell countsOrdered By: Dr. Velazco on 04-05-2023 Erythrocyte distribution width (RBC) [Entitic vol] 44.4 fL 35.1-43.9 [facility] Erythrocyte distribution width (RBC) [Ratio] 13.3 % 11.6-14.6 [facility] Immature granulocytes/100 WBC (Bld) 0.400 % 0.0-0.9 [facility] Comment on above: IG% - Immature Granu locytes (promyelocytes, myelocytes and metamyelocytes) > 1% indicates that a LEFT SHIFT is Present. MCH (RBC) [Entitic mass] 29.2 pg 27.0-32.0 [facility] Nucleated RBC/100 WBC (Bld) [Ratio] 0 % 0-5 [facility] MCHC Auto (RBC) [Mass/Vol]Or dered By: Dr. Velazco on 04-05-2023 MCHC (RBC) [Mass/Vol] 32.0 g/dL 32-[address] [facility] No Panel InformationOrdered By: Dr. Velazco on 04-05-2023 Estimated Creatinine Clearance Calc 28.85 ml/min [facility] Estimated GFR (MDRD) Amer 62 mL/min >60 [facility] Comment on above: GFR Calc Estimated GFR (MDRD) Non-Af Amer 52 mL/min >60 [facility] Comment on above: Non- GFR Calc Troponin I High Sensitivity 38 pg/mL 3.0-54.0 [facility] Comment on above: Please Note: New Nicko t Units and Gender Specific Reference Ranges. For more information see Policy Stat Procedure [place] High Sensitivity Troponin (TNIH) and attachments. Platelets bldOrdered By: Dr. Velazco on 04-05-2023 Platelets (Bld) [#/Vol] 228 10*3/uL 150-450 [facility] Serum or plasma calcium froylan urement (mass/volume)Ordered By: Dr. Velazco on 04-05-2023 Calcium [Mass/Vol] 9.3 mg/dL 8.5-10.1 [facility] Serum or plasma creatinine m easurement (mass/volume)Ordered By: Dr. Velazco on 04-05-2023 Creatinine [Mass/Vol] 1.08 mg/dL 0.55-1.[address] [facility] Comment on above: The validity of the calculated GFR & GFRAA in patients over 70 years has not been determined. Clinical correlation is essential. Serum or plasma urea nitroge n measurement (mass/volume)Ordered By: Dr. Velazco on 04-05-2023 Urea nitrogen [Mass/Vol] 13 mg/dL 7-18 [facility] Thin prep Papanicolaou smear with manual screeningOrdered By: Dr. Velazco on 04-05-2023 Thin prep Papanicolaou smear with manual screening 8 5-15 [facility] Absolute lymphocyte countOrd ered By: ED PROVIDER on 03-30-2023 Lymphocytes Auto (Unsp spec) [#/Vol] 2.60 10*3/uL 0.83-4.51 [facility] Basophil percentageOrdered B y: ED PROVIDER on 03-30-2023 Basophils/100 WBC (Bld) 0.6 % 0-1 [facility] Chloride [Moles/Vol] 108 mmol/L 98-107 [facility] Eosinophils/100 WBC (Bld) 0.9 % 0-5 [facility] Glucose [Mass/Vol] 100 mg/dL 74-106 [facility] Comment on above: Fasting Glucose resu lt from 100 to 125 mg/dL suggests IMPAIRED HOMEOSTASIS per A.D.A. criteria. Neutrophils (Bld) [#/Vol] 7.1 10*3/uL 2.0-7.7 [facility] Neutrophils/100 WBC (Bld) 66.8 % 47-70 [facility] Potassium [Moles/Vol] 3.5 mmol/L 3.5-5.[address] [facility] Sodium [Moles/Vol] 143 mmol/L 136-145 [facility] WBC (Bld) [#/Vol] 10.6 10*3/uL 4.4-11.0 [facility] Blood erythrocytes count (nu mber/volume)Ordered By: ED PROVIDER on 03-30-2023 RBC (Bld) [#/Vol] 4.76 10*6/uL 4.2-5.4 [facility] Blood hemoglobin measurement (mass/volume)Ordered By: ED PROVIDER on 03-30-2023 Hemoglobin (Bld) [Mass/Vol] 14.1 g/dL 12.0-15.0 [facility] Blood lymphocytes/100 leukoc ytesOrdered By: ED PROVIDER on 03-30-2023 Lymphocytes/100 WBC (Bld) 24.5 % 19-41 [facility] Blood monocytes/100 leukocyt esOrdered By: ED PROVIDER on 03-30-2023 Monocytes/100 WBC (Bld) 6.9 % 0-10 [facility] Blood platelet mean volumeOr dered By: ED PROVIDER on 03-30-2023 Platelet mean volume (Bld) [Entitic vol] 9.2 fL 6.2-12.0 [facility] Determination of erythrocyte mean corpuscular volume (MCV)Ordered By: ED PROVIDER on 03-30-2023 MCV (RBC) [Entitic vol] 91.6 fL 81-99 [facility] Hematocrit Auto (Bld) [Volum e fraction]Ordered By: ED PROVIDER on 03-30-2023 Hematocrit (Bld) [Volume fraction] 43.6 % 37-47 [facility] INR in Blood by Coagulation assayOrdered By: ED PROVIDER on 03-30-2023 INR Coag (Bld) [Relative time] 1.0 {INR} [facility] Laboratory - Chemistry and C hemistry - challengeOrdered By: ED PROVIDER on 03-30-2023 CO2 [Moles/Vol] 27.0 mmol/L 21.0-32.0 [facility] Urea nitrogen/Creatinine [Mass ratio] 19.0 mg/mg 10-20 [facility] Laboratory - CoagulationOrde red By: ED PROVIDER on 03-30-2023 aPTT Coag (Bld) [Time] 28.1 s 24.1-36.2 [facility] PT Coag (PPP) [Time] 13.2 s 11.7-14.9 [facility] Laboratory - Hematology and Cell countsOrdered By: ED PROVIDER on 03-30-2023 Erythrocyte distribution width (RBC) [Entitic vol] 42.2 fL 35.1-43.9 [facility] Erythrocyte distribution width (RBC) [Ratio] 12.5 % 11.6-14.6 [facility] Immature granulocytes/100 WBC (Bld) 0.300 % 0.0-0.9 [facility] Comment on above: IG% - Immature Granu locytes (promyelocytes, myelocytes and metamyelocytes) > 1% indicates that a LEFT SHIFT is Present. MCH (RBC) [Entitic mass] 29.6 pg 27.0-32.0 [facility] Nucleated RBC/100 WBC (Bld) [Ratio] 0 % 0-5 [facility] MCHC Auto (RBC) [Mass/Vol]Or dered By: ED PROVIDER on 03-30-2023 MCHC (RBC) [Mass/Vol] 32.3 g/dL 32-[address] [facility] No Panel InformationOrdered By: ED PROVIDER on 03-30-2023 Estimated Creatinine Clearance Calc 31.15 ml/min [facility] Estimated GFR (MDRD) Amer 97 mL/min >60 [facility] Comment on above: GFR Calc Estimated GFR (MDRD) Non-Af Amer 80 mL/min >60 [facility] Comment on above: Non- GFR Calc No Panel InformationOrdered By: Dick Love on 03-30-2023 Troponin I High Sensitivity 4 pg/mL 3.0-54.0 [facility] Comment on above: Please Note: New Nicko t Units and Gender Specific Reference Ranges. For more information see Policy Stat Procedure [place] High Sensitivity Troponin (TNIH) and attachments. Platelets bldOrdered By: ED PROVIDER on 03-30-2023 Platelets (Bld) [#/Vol] 328 10*3/uL 150-450 [facility] Serum or plasma calcium froylan urement (mass/volume)Ordered By: ED PROVIDER on 03-30-2023 Calcium [Mass/Vol] 9.5 mg/dL 8.5-10.1 [facility] Serum or plasma creatinine m easurement (mass/volume)Ordered By: ED PROVIDER on 03-30-2023 Creatinine [Mass/Vol] 0.74 mg/dL 0.55-1.[address] [facility] Comment on above: The validity of the calculated GFR & GFRAA in patients over 70 years has not been determined. Clinical correlation is essential. Serum or plasma urea nitroge n measurement (mass/volume)Ordered By: ED PROVIDER on 03-30-2023 Urea nitrogen [Mass/Vol] 14 mg/dL 7-18 [facility] Thin prep Papanicolaou smear with manual screeningOrdered By: ED PROVIDER on 03-30-2023 Thin prep Papanicolaou smear with manual screening 8 5-15 [facility] Absolute lymphocyte countOrd ered By: Dr. Sarabia on 03-07-2023 Lymphocytes Auto (Unsp spec) [#/Vol] 1.53 10*3/uL 0.83-4.51 [facility] Basophil percentageOrdered B y: Dr. Sarabia on 03-07-2023 Basophils/100 WBC (Bld) 0.5 % 0-1 [facility] Chloride [Moles/Vol] 106 mmol/L 98-107 [facility] Eosinophils/100 WBC (Bld) 2.4 % 0-5 [facility] Glucose [Mass/Vol] 296 mg/dL 74-106 [facility] Comment on above: Glucose result great er than or equal to 200 mg/dLsuggests DIABETES MELLITUS per A.D.A. criteria. Neutrophils (Bld) [#/Vol] 5.2 10*3/uL 2.0-7.7 [facility] Neutrophils/100 WBC (Bld) 68.3 % 47-70 [facility] Potassium [Moles/Vol] 4.0 mmol/L 3.5-5.[address] [facility] Sodium [Moles/Vol] 137 mmol/L 136-145 [facility] WBC (Bld) [#/Vol] 7.6 10*3/uL 4.4-11.0 [facility] Blood erythrocytes count (nu mber/volume)Ordered By: Dr. Sarabia on 03-07-2023 RBC (Bld) [#/Vol] 4.11 10*6/uL 4.2-5.4 [facility] Blood hemoglobin measurement (mass/volume)Ordered By: Dr. Sarabia on 03-07-2023 Hemoglobin (Bld) [Mass/Vol] 12.1 g/dL 12.0-15.0 [facility] Blood lymphocytes/100 leukoc ytesOrdered By: Dr. Sarabia on 03-07-2023 Lymphocytes/100 WBC (Bld) 20.2 % 19-41 [facility] Blood monocytes/100 leukocyt esOrdered By: Dr. Sarabia on 03-07-2023 Monocytes/100 WBC (Bld) 8.3 % 0-10 [facility] Blood platelet mean volumeOr dered By: Dr. Sarabia on 03-07-2023 Platelet mean volume (Bld) [Entitic vol] 12.6 fL 6.2-12.0 [facility] Determination of erythrocyte mean corpuscular volume (MCV)Ordered By: Dr. Sarabia on 03-07-2023 MCV (RBC) [Entitic vol] 92.0 fL 81-99 [facility] Hematocrit Auto (Bld) [Volum e fraction]Ordered By: Dr. Sarabia on 03-07-2023 Hematocrit (Bld) [Volume fraction] 37.8 % 37-47 [facility] Laboratory - Chemistry and C hemistry - challengeOrdered By: Dr. Sarabia on 03-07-2023 CO2 [Moles/Vol] 25.0 mmol/L 21.0-32.0 [facility] Urea nitrogen/Creatinine [Mass ratio] 17.3 mg/mg 10-20 [facility] Laboratory - Hematology and Cell countsOrdered By: Dr. Sarabia on 03-07-2023 Erythrocyte distribution width (RBC) [Entitic vol] 43.9 fL 35.1-43.9 [facility] Erythrocyte distribution width (RBC) [Ratio] 13.1 % 11.6-14.6 [facility] Immature granulocytes/100 WBC (Bld) 0.300 % 0.0-0.9 [facility] Comment on above: IG% - Immature Granu locytes (promyelocytes, myelocytes and metamyelocytes) > 1% indicates that a LEFT SHIFT is Present. MCH (RBC) [Entitic mass] 29.4 pg 27.0-32.0 [facility] Nucleated RBC/100 WBC (Bld) [Ratio] 0 % 0-5 [facility] MCHC Auto (RBC) [Mass/Vol]Or dered By: Dr. Sarabia on 03-07-2023 MCHC (RBC) [Mass/Vol] 32.0 g/dL 32-[address] [facility] No Panel InformationOrdered By: Dr. Sarabia on 03-07-2023 Estimated GFR (MDRD) Amer 81 mL/min >60 [facility] Comment on above: GFR Calc Estimated GFR (MDRD) Non-Af Amer 67 mL/min >60 [facility] Comment on above: Non- GFR Calc Platelets bldOrdered By: Dr. Sarabia on 03-07-2023 Platelets (Bld) [#/Vol] 218 10*3/uL 150-450 [facility] Serum or plasma calcium froylan urement (mass/volume)Ordered By: Dr. Sarabia on 03-07-2023 Calcium [Mass/Vol] 9.7 mg/dL 8.5-10.1 [facility] Serum or plasma creatinine m easurement (mass/volume)Ordered By: Dr. Sarabia on 03-07-2023 Creatinine [Mass/Vol] 0.87 mg/dL 0.55-1.[address] [facility] Comment on above: The validity of the calculated GFR & GFRAA in patients over 70 years has not been determined. Clinical correlation is essential. Serum or plasma urea nitroge n measurement (mass/volume)Ordered By: Dr. Sarabia on 03-07-2023 Urea nitrogen [Mass/Vol] 15 mg/dL 7-18 [facility] Thin prep Papanicolaou smear with manual screeningOrdered By: Dr. Sarabia on 03-07-2023 Thin prep Papanicolaou smear with manual screening 6 5-15 [facility] CT PELVIS W IVCONon 02-14-20 [facility] UA DIP, URINE (POC)on 2022 BILIRUBIN UA (POCT) Negative Negative [facility] CLARITY UA (POCT) Slightly Cloudy Cl [facility] COLOR UA (POCT) Yellow [facility] GLUCOSE UA (POCT) Negative Negative mg/dL [facility] HEMOGLOBIN/BLOOD UA (POCT) Trace-intact Abnormal Negative [facility] KETONE UA (POCT) Negative Negative mg/dL [facility] LEUKOCYTES UA (POCT) Negative Negative [facility] NITRITE UA (POCT) Negative Negative [facility] PH UA (POCT) 6.5 4.5 - 8.0 [facility] Protein Ql (U) Negative Negative mg/dL [facility] SPECIFIC GRAVITY UA (POCT) <=1.005 Abnormal 1.005 - 1.030 [facility] UROBILINOGEN UA (POCT) 0.2 E.U./dL Kyara l E.U./dL [facility] CT CHEST WO IVCONon 11-20-19 23 [facility] No Panel Informationon 11-16 [facility] XR Chest PA and Lateralon IMPRESSION: Findings as discussed under Results portion of report. . Seam Steamer: JAREDB Transcribe Date/Time: Oct 29 2022 7:55A Dictated by : ALEKSANDR ESPARZA DO This examination was interpreted and the report reviewed and electronically signed by: ALEKSANDR ESPARZA DO on Oct 29 2022 7:57AM [facility] [[email or web address]] DIVISION OF RADIOLOGY * * *Final Report* [...] soft tissues: Unremarkable. DIVISION OF RADIOLOGY Provider, [facility] Chaka perera [place] - 10/29/2022 * * *Final Report* * [...] discussed under Results portion of report. . Seam Steamer: AMBER Transcribe Date/Time: Oct 29 2022 7:55A Dictated by : ALEKSANDR ESPARZA DO This examination was interpreted and the report reviewed and electronically signed by: ALEKSANDR ESPARZA DO on Oct 29 2022 7:57AM EST [facility] XR Chest PA and LateralOrder ed By: [facility] Provider on 10-29-2022 [facility] XR CHEST 2V FRONTAL/LATon [facility] XR Chest PA and Lateralon Radiology Study observation (narrative) [facility] No Panel Informationon 10-12 [facility] SPIROMETRY - BASELINE AND PO ST DILATORon 10-12-2022 DLCO (ml/min/mmHg) 14.01 ml/min/mmHg [facility] DLCO/VA (ml/min/mmHg/L) 3.28 ml/min/mmHg/L [facility] ERV BOX (L) 0.45 L [facility] [id number]% POST (L/S) 1.24 L[facility]S [facility] HMO17-50% PRE (L/S) 0.82 L/S [facility] land [facility] FEV1 PRE (L) 1.58 L [facility] FEV1/FVC POST (%) 74 % [facility] nd [facility] FEV1/FVC PRE (%) 64 % [facility] d [facility] FEV1_POST (L) 1.71 L [facility] FRC Box (L) 2.56 L [facility] FVC POST (L) 2.31 L [facility] FVC PRE (L) 2.47 L [facility] IC BOX (L) 1.83 L [facility] PEF POST (L/S) 3.00 L/S [facility] PEF PRE (L/S) 3.13 L/S [facility] RV Box (L) 1.99 L [facility] RV/TLC Box (%) 47 % [facility] TLC Box (L) 4.27 L [facility] VA (L) 4.27 L [facility] VC (L) BOX 2.29 L [facility] Vital Signs Date Time Vital Sign Value Performing Clinician Facility 05-31-2025 03:19-0400 Body temperature 98.7 [degF] Dr. Henok Martinez MD Work Phone: [facility] 05-31-2025 03:19-0400 Diastolic blood pressure 58 mm[Hg] Dr. Henok Martinez MD Work Phone: [phone] [place] [address] 05-31-2025 03:19-0400 Heart rate 78 /min Dr. Henok Martinez MD Work Phone: [phone] [place] [address] 05-31-2025 03:19-0400 Respiratory rate 15 /min Dr. Henok Martinez MD Work Phone: 9(789)315-779717 [place] [address] 05-31-2025 03:19-0400 SaO2% (BldA) [Mass fraction] 100 % Dr. Henok Martinez MD Work Phone: 8(631)982-777217 [place] [address] 05-31-2025 03:19-0400 Systolic blood pressure 120 mm[Hg] Dr. Henok Martinez MD Work Phone: 4(344)518-232717 [place] [address] 05-30-2025 21:43-0400 Body mass index (BMI) [Ratio] 29.9 kg/m2 Dr. Henok Martinez MD Work Phone: 8(017)786-277317 [place] [address] 05-30-2025 21:43-0400 Body weight 69.[address] Henok Martinez MD Work Phone: 9(658)948-568517 [place] [address] 05-30-2025 21:27-0400 Body height 152.[address] Henok Martinez MD Work Phone: 6(483)000-505417 [place] [address] 05-25-2025 12:03-0400 Body mass index (BMI) [Ratio] 30.08 kg/m2 Juan Miguel Yusuf MD Work Phone: [facility] 05-25-2025 12:03-0400 Body temperature 98.49 [degF] Juan Miguel Yusuf MD Work Phone: [facility] 05-25-2025 12:03-0400 Body weight 69.85 kg Juan Miguel Yusuf MD Work Phone: [facility] 05-25-2025 12:03-0400 Diastolic blood pressure 69 mm[Hg] Juan Miguel Yusuf MD Work Phone: [facility] 05-25-2025 12:03-0400 Heart rate 73 /min Juan Miguel Yusuf MD Work Phone: [facility] 05-25-2025 12:03-0400 SaO2% (BldA) [Mass fraction] 98 % Juan Miguel Yusuf MD Work Phone: [facility] 05-25-2025 12:03-0400 Systolic blood pressure 140 mm[Hg] Juan Miguel Yusuf MD Work Phone: [facility] 04-06-2025 14:07-0400 Body height 152.4 cm Ayaz Nguyễn MD Work Phone: [facility] 04-06-2025 14:07-0400 Body mass index (BMI) [Ratio] 29.29 kg/m2 Ayaz Nguyễn MD Work Phone: [facility] 04-06-2025 14:07-0400 Body weight 68.04 kg Ayaz Nguyễn MD Work Phone: [facility] 03-30-2025 13:48-0400 Body mass index (BMI) [Ratio] 29.69 kg/m2 Henok Martinez MD Work Phone: [facility] 03-30-2025 13:48-0400 Body weight 68.95 kg Henok Martinez MD Work Phone: [facility] 03-30-2025 13:48-0400 Diastolic blood pressure 68 mm[Hg] Henok Martinez MD Work Phone: [facility] 03-30-2025 13:48-0400 Heart rate 84 /min Henok Martinez MD Work Phone: [facility] 03-30-2025 13:48-0400 SaO2% (BldA) [Mass fraction] 98 % Henok Martinez MD Work Phone: [facility] 03-30-2025 13:48-0400 Systolic blood pressure 118 mm[Hg] Henok Martinez MD Work Phone: [facility] 02-24-2025 10:57-0400 Body mass index (BMI) [Ratio] 28.9 kg/m2 Henok Martinez MD Work Phone: [facility] 02-24-2025 10:57-0400 Body weight 67.13 kg Henok Martinez MD Work Phone: [facility] 02-24-2025 10:57-0400 Diastolic blood pressure 72 mm[Hg] Henok Martinez MD Work Phone: [facility] 02-24-2025 10:57-0400 Heart rate 77 /min Henok Martinez MD Work Phone: [facility] 02-24-2025 10:57-0400 SaO2% (BldA) [Mass fraction] 99 % Henok Martinez MD Work Phone: [facility] 02-24-2025 10:57-0400 Systolic blood pressure 118 mm[Hg] Henok Martinez MD Work Phone: [facility] 02-22-2025 10:00-0400 Body mass index (BMI) [Ratio] 29.39 kg/m2 Lab/Port Wstr Work Phone: [facility] 02-22-2025 10:00-0400 Body weight 68.27 kg Lab[facility] Work Phone: [facility] 02-05-2025 09:19-0400 Body mass index (BMI) [Ratio] 30.17 kg/m2 Treatment Wstr Work Phone: [facility] 02-05-2025 09:19-0400 Body temperature 98.6 [degF] Treatment Wstr Work Phone: [facility] 02-05-2025 09:19-0400 Body weight 70.08 kg Treatment Wstr Work Phone: [facility] 02-05-2025 09:19-0400 Diastolic blood pressure 76 mm[Hg] Treatment Wstr Work Phone: [facility] 02-05-2025 09:19-0400 Heart rate 80 /min Treatment Wstr Work Phone: [facility] 02-05-2025 09:19-0400 SaO2% (BldA) [Mass fraction] 97 % Treatment Wstr Work Phone: [facility] 02-05-2025 09:19-0400 Systolic blood pressure 145 mm[Hg] Treatment Wstr Work Phone: [facility] 02-04-2025 10:35-0400 Body height 152.4 cm Ayaz Nguyễn MD Work Phone: [facility] 02-04-2025 10:35-0400 Body mass index (BMI) [Ratio] 29.49 kg/m2 Ayaz Nguyễn MD Work Phone: [facility] 02-04-2025 10:35-0400 Body weight 68.49 kg Ayaz Nguyễn MD Work Phone: [facility] 02-04-2025 10:35-0400 Diastolic blood pressure 60 mm[Hg] Ayaz Nguyễn MD Work Phone: [facility] 02-04-2025 10:35-0400 Heart rate 70 /min Ayaz Nguyễn MD Work Phone: [facility] 02-04-2025 10:35-0400 SaO2% (BldA) [Mass fraction] 97 % Ayaz Nguyễn MD Work Phone: [facility] 02-04-2025 10:35-0400 Systolic blood pressure 106 mm[Hg] Ayaz Nguyễn MD Work Phone: [facility] 02-01-2025 10:48-0400 Body mass index (BMI) [Ratio] 29.11 kg/m2 Henok Martinez MD Work Phone: [facility] 02-01-2025 10:48-0400 Body temperature 98.8 [degF] Henok Martinez MD Work Phone: [facility] 02-01-2025 10:48-0400 Body weight 68.49 kg Henok Martinez MD Work Phone: [facility] 02-01-2025 10:48-0400 Diastolic blood pressure 62 mm[Hg] Henok Martinez MD Work Phone: [facility] 02-01-2025 10:48-0400 Heart rate 79 /min Henok Martinez MD Work Phone: [facility] 02-01-2025 10:48-0400 SaO2% (BldA) [Mass fraction] 99 % Henok Martinez MD Work Phone: [facility] 02-01-2025 10:48-0400 Systolic blood pressure 102 mm[Hg] Henok Martinez MD Work Phone: [facility] 01-28-2025 11:08-0400 Body height 153.4 cm Treatment Wstr Work Phone: [facility] 01-28-2025 11:08-0400 Body mass index (BMI) [Ratio] 28.62 kg/m2 Treatment Wstr Work Phone: [facility] 01-28-2025 11:08-0400 Body temperature 99 [degF] Treatment Wstr Work Phone: [facility] 01-28-2025 11:08-0400 Body weight 67.36 kg Treatment Wstr Work Phone: [facility] 01-28-2025 11:08-0400 Diastolic blood pressure 67 mm[Hg] Treatment Wstr Work Phone: [facility] 01-28-2025 11:08-0400 Heart rate 69 /min Treatment Wstr Work Phone: [facility] 01-28-2025 11:08-0400 SaO2% (BldA) [Mass fraction] 100 % Treatment Wstr Work Phone: [facility] 01-28-2025 11:08-0400 Systolic blood pressure 113 mm[Hg] Treatment Wstr Work Phone: [facility] 01-25-2025 08:30-0400 Body height 152.5 cm Juan Miguel Yusuf MD Work Phone: [facility] 01-25-2025 08:30-0400 Body mass index (BMI) [Ratio] 29.26 kg/m2 Juan Miguel Yusuf MD Work Phone: [facility] 01-25-2025 08:30-0400 Body temperature 99 [degF] Juan Miguel Yusuf MD Work Phone: [facility] 01-25-2025 08:30-0400 Body weight 68.04 kg Juan Miguel Yusuf MD Work Phone: [facility] 01-25-2025 08:30-0400 Diastolic blood pressure 74 mm[Hg] Juan Miguel Yusuf MD Work Phone: [facility] 01-25-2025 08:30-0400 Heart rate 110 /min Juan Miguel Yusuf MD Work Phone: [facility] 01-25-2025 08:30-0400 SaO2% (BldA) [Mass fraction] 99 % Juan Miguel Yusuf MD Work Phone: [facility] 01-25-2025 08:30-0400 Systolic blood pressure 133 mm[Hg] Juan Miguel Yusuf MD Work Phone: [facility] 01-14-2025 21:17-0400 Diastolic blood pressure 68 mm[Hg] Dr. Henok Martinez MD Work Phone: [facility] 01-14-2025 21:17-0400 Heart rate 75 /min Dr. Henok Martinez MD Work Phone: [facility] 01-14-2025 21:17-0400 Systolic blood pressure 136 mm[Hg] Dr. Henok Martinez MD Work Phone: [facility] 01-14-2025 20:00-0400 Body temperature 98 [degF] Dr. Henok Martinez MD Work Phone: [facility] 01-14-2025 20:00-0400 Respiratory rate 16 /min Dr. Henok Martinez MD Work Phone: [facility] 01-14-2025 20:00-0400 SaO2% (BldA) [Mass fraction] 97 % Dr. Henok Martinez MD Work Phone: 4(467)097-001117 [place] [address] 01-14-2025 06:00-0400 Body mass index (BMI) [Ratio] 29.7 kg/m2 Dr. Henok Martinez MD Work Phone: 4(374)197-685917 [place] [address] 01-14-2025 06:00-0400 Body weight 68.[address] Henok Martinez MD Work Phone: 8(433)457-912817 [place] [address] 01-13-2025 11:06-0400 Body height 152.[address] Henok Martinez MD Work Phone: 1(244)133-280517 [place] [address] 01-10-2025 01:10-0400 Body temperature 97.9 [degF] Dr. Henok Martinez MD Work Phone: 0(988)918-089917 [place] [address] 01-10-2025 01:10-0400 Diastolic blood pressure 90 mm[Hg] Dr. Henok Martinez MD Work Phone: 9(381)083-000917 [place] [address] 01-10-2025 01:10-0400 Heart rate 86 /min Dr. Henok Martinez MD Work Phone: 1(250)075-343717 [place] [address] 01-10-2025 01:10-0400 Respiratory rate 22 /min Dr. Henok Martinez MD Work Phone: 2(141)783-755317 [place] [address] 01-10-2025 01:10-0400 SaO2% (BldA) [Mass fraction] 96 % Dr. Henok Martinez MD Work Phone: 4(194)744-268217 [place] [address] 01-10-2025 01:10-0400 Systolic blood pressure 158 mm[Hg] Dr. Henok Martinez MD Work Phone: 9(721)021-914517 [place] [address] 01-09-2025 18:39-0400 Body height 152.[address] Henok Martinez MD Work Phone: 2(808)621-127417 [place] [address] 01-09-2025 18:39-0400 Body mass index (BMI) [Ratio] 29.4 kg/m2 Dr. Henok Martinez MD Work Phone: 2(513)561-163317 [place] [address] 01-09-2025 18:39-0400 Body weight 68.[address] Henok Martinez MD Work Phone: [facility] 11-17-2024 12:52-0500 Diastolic blood pressure 62 mm[Hg] Angelia Click CREDIT ADMINISTRATION OFFICER.POLICE COMMANDING OFFICER Work Phone: [facility] 11-17-2024 12:52-0500 Heart rate 72 /min Angelia Click CREDIT ADMINISTRATION OFFICER.POLICE COMMANDING OFFICER Work Phone: [facility] 11-17-2024 12:52-0500 Respiratory rate 16 /min Angelia Click CREDIT ADMINISTRATION OFFICER.POLICE COMMANDING OFFICER Work Phone: [facility] 11-17-2024 12:52-0500 Systolic blood pressure 104 mm[Hg] Angelia Click CREDIT ADMINISTRATION OFFICER.POLICE COMMANDING OFFICER Work Phone: [facility] 11-04-2024 15:14-0500 Body height 149.9 cm Henok Martinez MD Work Phone: [facility] 11-04-2024 15:14-0500 Body mass index (BMI) [Ratio] 32.11 kg/m2 Henok Martinez MD Work Phone: [facility] 11-04-2024 15:14-0500 Body weight 72.12 kg Henok Martinez MD Work Phone: [facility] 11-04-2024 15:14-0500 Diastolic blood pressure 50 mm[Hg] Henok Martinez MD Work Phone: [facility] 11-04-2024 15:14-0500 Heart rate 81 /min Henok Martinez MD Work Phone: [facility] 11-04-2024 15:14-0500 SaO2% (BldA) [Mass fraction] 98 % Henok Martinez MD Work Phone: [facility] 11-04-2024 15:14-0500 Systolic blood pressure 110 mm[Hg] Henok Martinez MD Work Phone: [facility] 10-13-2024 14:44-0500 Body mass index (BMI) [Ratio] 32.72 kg/m2 Virginia Reina CREDIT ADMINISTRATION OFFICER.POLICE COMMANDING OFFICER Work Phone: [facility] 10-13-2024 14:44-0500 Body temperature 99.3 [degF] Virginia Suppan CREDIT ADMINISTRATION OFFICER.POLICE COMMANDING OFFICER Work Phone: [facility] 10-13-2024 14:44-0500 Body weight 73.48 kg Virginia Suppan CREDIT ADMINISTRATION OFFICER.POLICE COMMANDING OFFICER Work Phone: [facility] 10-13-2024 14:44-0500 Diastolic blood pressure 68 mm[Hg] Virginia Suppan CREDIT ADMINISTRATION OFFICER.POLICE COMMANDING OFFICER Work Phone: [facility] 10-13-2024 14:44-0500 Heart rate 67 /min Virginia Suppan CREDIT ADMINISTRATION OFFICER.POLICE COMMANDING OFFICER Work Phone: [facility] 10-13-2024 14:44-0500 Respiratory rate 16 /min Virginia Suppan CREDIT ADMINISTRATION OFFICER.POLICE COMMANDING OFFICER Work Phone: [facility] 10-13-2024 14:44-0500 SaO2% (BldA) [Mass fraction] 97 % Virginia Suppan CREDIT ADMINISTRATION OFFICER.POLICE COMMANDING OFFICER Work Phone: [facility] 10-13-2024 14:44-0500 Systolic blood pressure 124 mm[Hg] Virginia Suppan CREDIT ADMINISTRATION OFFICER.POLICE COMMANDING OFFICER Work Phone: [facility] 07-01-2024 16:04-0400 Body height 149.9 cm Henok Martinez MD Work Phone: [facility] 07-01-2024 16:04-0400 Body mass index (BMI) [Ratio] 32.72 kg/m2 Henok Martinez MD Work Phone: [facility] 07-01-2024 16:04-0400 Body weight 73.48 kg Henok Martinez MD Work Phone: [facility] 07-01-2024 16:04-0400 Diastolic blood pressure 56 mm[Hg] Henok Martinez MD Work Phone: [facility] 07-01-2024 16:04-0400 Heart rate 76 /min Henok Martinez MD Work Phone: [facility] 07-01-2024 16:04-0400 SaO2% (BldA) [Mass fraction] 99 % Henok Martinez MD Work Phone: [facility] 07-01-2024 16:04-0400 Systolic blood pressure 124 mm[Hg] Henok Martinez MD Work Phone: [facility] 06-05-2024 11:34-0400 Body mass index (BMI) [Ratio] 32.72 kg/m2 Nancy Medley MD Work Phone: [facility] 06-05-2024 11:34-0400 Body weight 73.48 kg Nancy Medley MD Work Phone: [facility] 05-01-2024 15:44-0400 Body mass index (BMI) [Ratio] 33.53 kg/m2 Henok Martinez MD Work Phone: [facility] 05-01-2024 15:44-0400 Body weight 75.3 kg Henok Martinez MD Work Phone: [facility] 05-01-2024 15:44-0400 Diastolic blood pressure 70 mm[Hg] Henok Martinez MD Work Phone: [facility] 05-01-2024 15:44-0400 Heart rate 64 /min Henok Martinez MD Work Phone: [facility] 05-01-2024 15:44-0400 SaO2% (BldA) [Mass fraction] 99 % Henok Martinez MD Work Phone: [facility] 05-01-2024 15:44-0400 Systolic blood pressure 122 mm[Hg] Henok Martinez MD Work Phone: [facility] 03-04-2024 14:15-0400 Body height 149.9 cm Henok Martinez MD Work Phone: [facility] 03-04-2024 14:15-0400 Body mass index (BMI) [Ratio] 31.1 kg/m2 Henok Martinez MD Work Phone: [facility] 03-04-2024 14:15-0400 Body temperature 98.91 [degF] Henok Martinez MD Work Phone: [facility] 03-04-2024 14:15-0400 Body weight 69.85 kg Henok Martinez MD Work Phone: [facility] 03-04-2024 14:15-0400 Diastolic blood pressure 60 mm[Hg] Henok Martinez MD Work Phone: [facility] 03-04-2024 14:15-0400 Heart rate 91 /min Henok Martinez MD Work Phone: [facility] 03-04-2024 14:15-0400 SaO2% (BldA) [Mass fraction] 97 % Henok Martinez MD Work Phone: [facility] 03-04-2024 14:15-0400 Systolic blood pressure 110 mm[Hg] Henok Martinez MD Work Phone: [facility] 02-25-2024 16:00-0400 Heart rate 113 /min Dr. Henok Martniez Work Phone: [facility] 02-25-2024 16:00-0400 Respiratory rate 22 /min Dr. Henok Martinez Work Phone: [facility] 02-25-2024 15:52-0400 Body mass index (BMI) [Ratio] 31.5 kg/m2 Dr. Henok Martinez Work Phone: [facility] 02-25-2024 15:52-0400 Body weight 72.[address] Henok Martinez Work Phone: 4(565)796-962873 [place] [address] 02-25-2024 14:36-0400 Body height 152.[address] Henok Martinez Work Phone: [facility] 02-25-2024 14:36-0400 Body temperature 99.6 [degF] Dr. Henok Martinez Work Phone: 2(800)104-702573 [place] [address] 02-25-2024 14:36-0400 Diastolic blood pressure 77 mm[Hg] Dr. Henok Martinez Work Phone: [facility] 02-25-2024 14:36-0400 SaO2% (BldA) [Mass fraction] 97 % Dr. Henok Martinez Work Phone: [facility] 02-25-2024 14:36-0400 Systolic blood pressure 158 mm[Hg] Dr. Henok Martinez Work Phone: [facility] 02-19-2024 12:39-0400 Body mass index (BMI) [Ratio] 33.13 kg/m2 Lana Alanis APRN.POLICE COMMANDING OFFICER Work Phone: [facility] 02-19-2024 12:39-0400 Body temperature 99.39 [degF] Lana Alanis APRN.POLICE COMMANDING OFFICER Work Phone: [facility] 02-19-2024 12:39-0400 Body weight 74.4 kg Lana Alanis APRN.POLICE COMMANDING OFFICER Work Phone: [facility] 02-19-2024 12:39-0400 Diastolic blood pressure 72 mm[Hg] Lana Alanis APRN.POLICE COMMANDING OFFICER Work Phone: [facility] 02-19-2024 12:39-0400 Heart rate 74 /min Lana Alanis APRN.POLICE COMMANDING OFFICER Work Phone: [facility] 02-19-2024 12:39-0400 Respiratory rate 16 /min Lana Alanis APRN.POLICE COMMANDING OFFICER Work Phone: [facility] 02-19-2024 12:39-0400 SaO2% (BldA) [Mass fraction] 99 % Lana Alanis APRN.POLICE COMMANDING OFFICER Work Phone: [facility] 02-19-2024 12:39-0400 Systolic blood pressure 122 mm[Hg] Lana Alanis APRN.POLICE COMMANDING OFFICER Work Phone: [facility] 02-07-2024 10:58-0400 Body temperature 98.1 [degF] Fazal Law APRN.POLICE COMMANDING OFFICER Work Phone: [facility] 02-07-2024 10:58-0400 Body weight 73.4 kg Fazal Law APRN.POLICE COMMANDING OFFICER Work Phone: [facility] 02-07-2024 10:58-0400 Diastolic blood pressure 72 mm[Hg] Fazal Law APRN.POLICE COMMANDING OFFICER Work Phone: [facility] 02-07-2024 10:58-0400 Heart rate 68 /min Fazal Cullennatalia CREDIT ADMINISTRATION OFFICER.POLICE COMMANDING OFFICER Work Phone: [facility] 02-07-2024 10:58-0400 Respiratory rate 16 /min Fazal Cullennatalia CREDIT ADMINISTRATION OFFICER.POLICE COMMANDING OFFICER Work Phone: [facility] 02-07-2024 10:58-0400 SaO2% (BldA) [Mass fraction] 97 % Fazal Cullennatalia CREDIT ADMINISTRATION OFFICER.POLICE COMMANDING OFFICER Work Phone: [facility] 02-07-2024 10:58-0400 Systolic blood pressure 124 mm[Hg] Fazal Cullennatalia CREDIT ADMINISTRATION OFFICER.POLICE COMMANDING OFFICER Work Phone: [facility] 12-16-2023 10:07-0500 Body height 149.9 cm Henok Martinez MD Work Phone: [facility] 12-16-2023 10:07-0500 Body weight 74.84 kg Henok Martinez MD Work Phone: [facility] 12-16-2023 10:07-0500 Diastolic blood pressure 52 mm[Hg] Henok Martinez MD Work Phone: [facility] 12-16-2023 10:07-0500 Heart rate 63 /min Henok Martinez MD Work Phone: [facility] 12-16-2023 10:07-0500 SaO2% (BldA) [Mass fraction] 99 % Henok Martinez MD Work Phone: [facility] 12-16-2023 10:07-0500 Systolic blood pressure 110 mm[Hg] Henok Martinez MD Work Phone: [facility] 11-21-2023 09:22-0500 Body mass index (BMI) [Ratio] 31.6 kg/m2 Dr. Henok Martinez Work Phone: [facility] 11-21-2023 09:22-0500 Body weight 73.[address] Henok Martinez Work Phone: [facility] 11-21-2023 09:22-0500 Diastolic blood pressure 78 mm[Hg] Dr. Henok Martinez Work Phone: [facility] 11-21-2023 09:22-0500 Heart rate 65 /min Dr. Henok Martinez Work Phone: [facility] 11-21-2023 09:22-0500 Respiratory rate 16 /min Dr. Henok Martinez Work Phone: [facility] 11-21-2023 09:22-0500 Systolic blood pressure 168 mm[Hg] Dr. Henok Martinez Work Phone: [facility] 09-05-2023 15:39-0500 Body weight 73.48 kg NA Muller PA-C Work Phone: [facility] 09-05-2023 15:39-0500 Diastolic blood pressure 70 mm[Hg] NA Muller PA-C Work Phone: [facility] 09-05-2023 15:39-0500 Heart rate 68 /min NA Muller PA-C Work Phone: [facility] 09-05-2023 15:39-0500 Respiratory rate 16 /min NA Muller PA-C Work Phone: [facility] 09-05-2023 15:39-0500 SaO2% (BldA) [Mass fraction] 99 % NA Muller PA-C Work Phone: [facility] 09-05-2023 15:39-0500 Systolic blood pressure 132 mm[Hg] NA Muller PA-C Work Phone: [facility] 07-30-2023 16:21-0400 Body mass index (BMI) [Ratio] 32.5 kg/m2 Dr. Henok Martinez Work Phone: [facility] 07-30-2023 16:21-0400 Body weight 75.[address] Henok Martinez Work Phone: [facility] 07-30-2023 16:21-0400 Diastolic blood pressure 66 mm[Hg] Dr. Henok Martinez Work Phone: 9(441)128-697373 [place] [address] 07-30-2023 16:21-0400 Systolic blood pressure 165 mm[Hg] Dr. Henok Martinez Work Phone: 9(575)541-565117 [place] [address] 07-30-2023 16:01-0400 Body height 152.[address] Henok Martinez Work Phone: 9(573)733-730517 [place] [address] 07-30-2023 16:01-0400 Body temperature 96.3 [degF] Dr. Henok Martinez Work Phone: 9(388)603-541017 [place] [address] 07-30-2023 16:01-0400 Heart rate 72 /min Dr. Henok Martinez Work Phone: 4(480)193-926517 [place] [address] 07-30-2023 16:01-0400 Respiratory rate 18 /min Dr. Henok Martinez Work Phone: 8(452)250-835317 [place] [address] 07-30-2023 16:01-0400 SaO2% (BldA) [Mass fraction] 98 % Dr. Henok Martinez Work Phone: 3(313)864-948317 [place] [address] 06-18-2023 10:31-0400 Body mass index (BMI) [Ratio] 32.5 kg/m2 Dr. Henok Martinez Work Phone: 2(083)148-532217 [place] [address] 06-18-2023 10:31-0400 Body temperature 98.4 [degF] Dr. Henok Martinez Work Phone: 8(811)918-223417 [place] [address] 06-18-2023 10:31-0400 Body weight 75.[address] Henok Martinez Work Phone: 0(527)515-946017 [place] [address] 06-18-2023 10:31-0400 Diastolic blood pressure 70 mm[Hg] Dr. Henok Martinez Work Phone: 2(890)871-655217 [place] [address] 06-18-2023 10:31-0400 Heart rate 83 /min Dr. Henok Martinez Work Phone: 1(415)013-751817 [place] [address] 06-18-2023 10:31-0400 Respiratory rate 17 /min Dr. Henok Martinez Work Phone: 7(120)479-448673 [place] [address] 06-18-2023 10:31-0400 SaO2% (BldA) [Mass fraction] 98 % Dr. Henok Martinez Work Phone: 7(247)584-150273 [place] [address] 06-18-2023 10:31-0400 Systolic blood pressure 150 mm[Hg] Dr. Henok Martinez Work Phone: 4(067)589-655917 [place] [address] 04-22-2023 19:53-0400 Diastolic blood pressure 95 mm[Hg] Dr. Henok Martinez Work Phone: 6(885)631-570117 [place] [address] 04-22-2023 19:53-0400 Systolic blood pressure 174 mm[Hg] Dr. Henok Martinez Work Phone: 7(908)892-974817 [place] [address] 04-22-2023 16:52-0400 Body height 152.[address] Henok Martinez Work Phone: 4(795)306-610917 [place] [address] 04-22-2023 16:52-0400 Body mass index (BMI) [Ratio] 32.8 kg/m2 Dr. Henok Martinez Work Phone: 1(952)400-146917 [place] [address] 04-22-2023 16:52-0400 Body temperature 97 [degF] Dr. Henok Martinez Work Phone: 8(402)253-483917 [place] [address] 04-22-2023 16:52-0400 Body weight 76.[address] Henok Martinez Work Phone: 2(239)191-502017 [place] [address] 04-22-2023 16:52-0400 Heart rate 74 /min Dr. Henok Martinez Work Phone: 2(879)629-476817 [place] [address] 04-22-2023 16:52-0400 Respiratory rate 18 /min Dr. Henok Martinez Work Phone: 4(597)646-424273 [place] [address] 04-22-2023 16:52-0400 SaO2% (BldA) [Mass fraction] 96 % Dr. Henok Martinez Work Phone: [facility] 04-15-2023 13:04-0400 Diastolic blood pressure 96 mm[Hg] Clarita Boggs APRN.CNP Work Phone: 8(652)732-179996 [place] [address] 04-15-2023 13:04-0400 Heart rate 77 /min Clarita Haagen CREDIT ADMINISTRATION OFFICER.POLICE COMMANDING OFFICER Work Phone: [facility] 04-15-2023 13:04-0400 Respiratory rate 16 /min Clarita Boggs CREDIT ADMINISTRATION OFFICER.POLICE COMMANDING OFFICER Work Phone: [facility] 04-15-2023 13:04-0400 SaO2% (BldA) [Mass fraction] 99 % Clraita Boggs CREDIT ADMINISTRATION OFFICER.POLICE COMMANDING OFFICER Work Phone: [facility] 04-15-2023 13:04-0400 Systolic blood pressure 144 mm[Hg] Clarita Bogsg CREDIT ADMINISTRATION OFFICER.POLICE COMMANDING OFFICER Work Phone: [facility] 04-05-2023 20:23-0400 Diastolic blood pressure 71 mm[Hg] Dr. Henok Martinez Work Phone: [facility] 04-05-2023 20:23-0400 Heart rate 62 /min Dr. Henok Martinez Work Phone: [facility] 04-05-2023 20:23-0400 Respiratory rate 15 /min Dr. Henok Martinez Work Phone: [facility] 04-05-2023 20:23-0400 SaO2% (BldA) [Mass fraction] 98 % Dr. Henok Martinez Work Phone: [facility] 04-05-2023 20:23-0400 Systolic blood pressure 148 mm[Hg] Dr. Henok Martinez Work Phone: [facility] 04-05-2023 17:38-0400 Body mass index (BMI) [Ratio] 32.2 kg/m2 Dr. Henok Martinez Work Phone: [facility] 04-05-2023 17:38-0400 Body temperature 97.9 [degF] Dr. Henok Martinez Work Phone: [facility] 04-05-2023 17:38-0400 Body weight 74.[address] Henok Martinez Work Phone: [facility] 04-01-2023 16:07-0400 Body weight 74.84 kg Henok Martinez MD Work Phone: [facility] 04-01-2023 16:07-0400 Diastolic blood pressure 72 mm[Hg] Henok Martinez MD Work Phone: [facility] 04-01-2023 16:07-0400 Heart rate 83 /min Henok Martinez MD Work Phone: [facility] 04-01-2023 16:07-0400 SaO2% (BldA) [Mass fraction] 100 % Henok Martinez MD Work Phone: [facility] 04-01-2023 16:07-0400 Systolic blood pressure 172 mm[Hg] Henok Martinez MD Work Phone: [facility] 03-31-2023 01:31-0400 Body temperature 98.6 [degF] Dr. Henok Martinez Work Phone: [facility] 03-31-2023 01:31-0400 Diastolic blood pressure 61 mm[Hg] Dr. Henok Martinez Work Phone: [facility] 03-31-2023 01:31-0400 Heart rate 74 /min Dr. Henok Martinez Work Phone: [facility] 03-31-2023 01:31-0400 Respiratory rate 16 /min Dr. Henok Martinez Work Phone: [facility] 03-31-2023 01:31-0400 SaO2% (BldA) [Mass fraction] 99 % Dr. Henok Martinez Work Phone: [facility] 03-31-2023 01:31-0400 Systolic blood pressure 120 mm[Hg] Dr. Henok Martinez Work Phone: [facility] 03-30-2023 21:40-0400 Body height 152.[address] Henok Martinez Work Phone: [facility] 03-30-2023 21:40-0400 Body mass index (BMI) [Ratio] 32.8 kg/m2 Dr. Henok Martinez Work Phone: [facility] 03-30-2023 21:40-0400 Body weight 76.[address] Henok Martinez Work Phone: 5(358)722-399017 [place] [address] 03-18-2023 11:33-0400 Body height 152.[address] Henok Martinez Work Phone: 5(878)520-367417 [place] [address] 03-18-2023 11:33-0400 Body weight 78.[address] Henok Martinez Work Phone: 6(095)916-788517 [place] [address] 03-15-2023 09:45-0400 Body mass index (BMI) [Ratio] 33.5 kg/m2 Dr. Henok Martinez Work Phone: 0(323)640-854317 [place] [address] 03-07-2023 08:33-0400 Body height 152.[address] Henok Martinez Work Phone: 7(806)086-465217 [place] [address] 03-07-2023 08:33-0400 Body mass index (BMI) [Ratio] 33.5 kg/m2 Dr. Henok Martinez Work Phone: 6(314)799-833017 [place] [address] 03-07-2023 08:33-0400 Body weight 78.[address] Henok Martinez Work Phone: 8(888)728-375817 [place] [address] 03-07-2023 08:33-0400 Diastolic blood pressure 96 mm[Hg] Dr. Henok Martinez Work Phone: 8(692)103-049717 [place] [address] 03-07-2023 08:33-0400 Heart rate 78 /min Dr. Henok Martinez Work Phone: 5(991)310-773273 [place] [address] 03-07-2023 08:33-0400 Respiratory rate 18 /min Dr. Henok Martinez Work Phone: 6(604)901-376717 [place] [address] 03-07-2023 08:33-0400 Systolic blood pressure 160 mm[Hg] Dr. Henok Martinez Work Phone: 9(082)365-311617 [place] [address] 02-25-2023 13:39-0400 Body height 149.[address] [facility] 02-25-2023 13:39-0400 Body weight 75.[address] [facility] 02-08-2023 15:45-0400 Body weight 75.66 kg Sadia Braulio CREDIT ADMINISTRATION OFFICER.POLICE COMMANDING OFFICER Work Phone: [facility] 02-08-2023 15:45-0400 Diastolic blood pressure 80 mm[Hg] Sadia Columbus CREDIT ADMINISTRATION OFFICER.POLICE COMMANDING OFFICER Work Phone: [facility] 02-08-2023 15:45-0400 Systolic blood pressure 120 mm[Hg] Sadia Columbus CREDIT ADMINISTRATION OFFICER.POLICE COMMANDING OFFICER Work Phone: [facility] 01-25-2023 14:16-0400 Diastolic blood pressure 70 mm[Hg] Henok Martinez MD Work Phone: [facility] 01-25-2023 14:16-0400 Systolic blood pressure 146 mm[Hg] Henok Martinez MD Work Phone: [facility] 01-25-2023 13:38-0400 Body height 149.9 cm Henok Martinez MD Work Phone: [facility] 01-25-2023 13:38-0400 Body weight 76.75 kg Henok Martinez MD Work Phone: [facility] 01-25-2023 13:38-0400 Heart rate 82 /min Henok Martinez MD Work Phone: [facility] 01-25-2023 13:38-0400 SaO2% (BldA) [Mass fraction] 97 % Henok Martinez MD Work Phone: [facility] 11-23-2022 14:00-0500 Diastolic blood pressure 76 mm[Hg] Mi Nurse Work Phone: [facility] 11-23-2022 14:00-0500 Heart rate 76 /min Mi Nurse Work Phone: [facility] 11-23-2022 14:00-0500 Systolic blood pressure 141 mm[Hg] Mi Nurse Work Phone: [facility] 11-16-2022 13:11-0500 Body weight 75.75 kg Pulm Wstr Work Phone: [facility] 10-26-2022 13:58-0500 Diastolic blood pressure 80 mm[Hg] Henok Martinez MD Work Phone: [facility] 10-26-2022 13:58-0500 Systolic blood pressure 150 mm[Hg] Henok Martinez MD Work Phone: [facility] 10-26-2022 13:34-0500 Body weight 77.11 kg Henok Martinez MD Work Phone: [facility] 10-26-2022 13:34-0500 Heart rate 92 /min Henok Martinez MD Work Phone: [facility] 10-26-2022 13:34-0500 SaO2% (BldA) [Mass fraction] 98 % Henok Martinez MD Work Phone: [facility] 10-12-2022 14:32-0500 Body height 149.9 cm Pulm Wstr Work Phone: [facility] 10-12-2022 14:32-0500 Body weight 75.3 kg Pulm Wstr Work Phone: [facility] 10-12-2022 14:32-0500 Heart rate 76 /min Pulm Wstr Work Phone: [facility] 10-12-2022 14:32-0500 Respiratory rate 12 /min Pulm Wstr Work Phone: [facility] 10-12-2022 14:32-0500 SaO2% (BldA) [Mass fraction] 98 % Pulm Wstr Work Phone: [facility] 10-01-2022 15:27-0500 Body weight 76.66 kg Henok Martinez MD Work Phone: [facility] 10-01-2022 15:27-0500 Diastolic blood pressure 78 mm[Hg] Henok Martinez MD Work Phone: [facility] 10-01-2022 15:27-0500 Heart rate 107 /min Henok Martinez MD Work Phone: [facility] 10-01-2022 15:27-0500 SaO2% (BldA) [Mass fraction] 99 % Henok Martinez MD Work Phone: [facility] 10-01-2022 15:27-0500 Systolic blood pressure 152 mm[Hg] Henok Martinez MD Work Phone: [facility] 09-05-2022 13:42-0500 Body height 154.9 cm Monet Calvo MD Work Phone: [facility] 09-05-2022 13:42-0500 Body temperature 98.4 [degF] Monet Calvo MD Work Phone: [facility] 09-05-2022 13:42-0500 Body weight 76.2 kg Monet Calvo MD Work Phone: [facility] 09-05-2022 13:42-0500 Diastolic blood pressure 94 mm[Hg] Monet Calvo MD Work Phone: [facility] 09-05-2022 13:42-0500 Heart rate 65 /min Monet Calvo MD Work Phone: [facility] 09-05-2022 13:42-0500 SaO2% (BldA) [Mass fraction] 97 % Monet Calvo MD Work Phone: [facility] 09-05-2022 13:42-0500 Systolic blood pressure 148 mm[Hg] Monet Calvo MD Work Phone: [facility] 01-26-2022 12:27-0400 Diastolic blood pressure 60 mm[Hg] Henok Martinez MD Work Phone: [facility] 01-26-2022 12:27-0400 Systolic blood pressure 138 mm[Hg] Henok Martinez MD Work Phone: [facility] 01-26-2022 09:58-0400 Body weight 74.39 kg Henok Martinez MD Work Phone: [facility] 01-26-2022 09:58-0400 Heart rate 60 /min Henok Martinez MD Work Phone: [facility] 01-26-2022 09:58-0400 Respiratory rate 16 /min Henok Martinez MD Work Phone: [facility] Encounters Encounter Date Encounter Type Care Provider Facility Start: 05-31-2025 Evaluation and management of inpatient Dr. Oniel Golden DO -Medical Surgical 3 Work Phone: Start: 05-26-2025 End: 05-26-2025 Patient encounter procedure Skyler Bhatia MA [facility] Comment on above: Population Health Na vigation Outreach ( ANGELINAO WORKBECINDI MENDOZA PCSA // ) Start: 05-26-2025 End: 05-26-2025 ambulatory Skyler Bhatia MA [facility] Start: 05-26-2025 End: 05-26-2025 Subsequent hospital visit by physician Ct Prep [facility] Cat Scan Comment on above: Malignant neoplasm o f head of pancreas (HCC) [C25.0] Start: 05-25-2025 End: 05-25-2025 Telephone encounter Anel Diaz MD Work Phone: [facility] [place] Comment on above: Appointment Start: 05-25-2025 End: [...] Reji Comment on above: Refill Request Start: 04-08-2025 End: 04-08-2025 Telephone encounter Lamar Stoner MD Work Phone: Radiation Oncology Comment on above: Appointment Start: 04-06-2025 End: 04-06-2025 ambulatory AYAZ NGUYỄN Facility:[facility] Start: 04-06-2025 End: 04-06-2025 Telephone encounter Anel Diaz MD Work Phone: [facility] [place] Comment on above: RUQ pain (Primary Dx ) Start: 04-06-2025 End: 04-06-2025 Office outpatient visit 40 minutes Ayaz Nguyễn MD Work Phone: [facility] Comment on above: Pancreatic adenocarc inoma (HCC) (Primary Dx) Start: 04-01-2025 End: 04-01-2025 ambulatory Skyler Bhatia MA Robert Applebaum MD Start: 04-01-2025 End: 04-01-2025 [facility] [place] Comment on above: Population Health Na vigation Outreach ( ); Opened In Error Start: 03-30-2025 End: 03-30-2025 Patient encounter procedure Henok Martinez MD Work Phone: [facility] Comment on above: Atrial fibrillation, unspecified type (HCC) (Primary Dx); History of CVA (cerebrovascular accident); Primary hypertension; Hyperlipidemia, unspecified hyperlipidemia type; Bronchiectasis without complication (HCC); Gastroesophageal reflux disease without esophagitis; 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); 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; Type 2 diabetes mellitus with hyperglycemia, with long-term current use of insulin (HCC) Start: 03-30-2025 End: 03-30-2025 ambulatory HENOK MARTINEZ Facility:[facility] Start: 03-19-2025 End: 05-19-2025 Follow-up encounter Henok Martinez MD Work Phone: [facility] Start: 03-18-2025 ambulatory HENOK MARTINEZ Facility :[facility] Start: 03-15-2025 End: 03-15-2025 Telephone encounter Juan Miguel Yusuf MD Work Phone: Hematology/Oncology Comment on above: Patient Update Start: 03-10-2025 End: 03-10-2025 ambulatory Safia Henley RN Work Phone: Trim Technician Management Comment on above: Primary Care Coordin ator- Other (Chart review) Start: 03-08-2025 End: 03-08-2025 Refill Henok Martinez MD Work Phone: Family Medicine [facility] Comment on above: Refill Request Start: 03-02-2025 End: 03-15-2025 Telephone encounter Juan Miguel Yusuf MD Work Phone: Hematology/Oncology Comment on above: Patient Question Start: 02-24-2025 End: 02-24-2025 Patient encounter procedure Henok Martinez MD Work Phone: [facility] Comment on above: RSV (respiratory syn cytial virus pneumonia) (Primary Dx); Bronchiectasis without complication (HCC); Pancreatic adenocarcinoma (HCC); Type 2 diabetes mellitus with hyperglycemia, with long-term current use of insulin (HCC); Primary hypertension Start: 02-24-2025 End: 02-24-2025 ambulatory HENOK MARTINEZ Facility:[facility] Start: 02-23-2025 End: 02-23-2025 ambulatory Dasha Clemons RN [facility] Radiology Comment on above: You are scheduled fo r a port insertion at [facility] on 03/04 at 12:00 pm Start: 02-23-2025 End: 02-23-2025 E-mail encounter from caregiver Dasha Clemons RN [facility] Start: 02-23-2025 End: 02-24-2025 Telephone encounter Henok Martinez MD Work Phone: [facility] Comment on above: Appt Needs Reschedul ed Medication Request Start: 02-22-2025 End: 02-23-2025 Telephone encounter Maria Isabel Silverio RN Work Phone: Hematology/Oncology Comment on above: Future Appointment Start: 02-22-2025 End: 02-22-2025 Subsequent hospital visit by physician Elysia [facility] Shane Work Phone: Radiology Comment on above: Malignant neoplasm o f head of pancreas (HCC) [C25.0] Start: 02-22-2025 End: 02-22-2025 ambulatory Lab/Port Viraj [facility] Work Phone: Hematology/Oncology Comment on above: Malignant neoplasm o f head of pancreas (HCC) Start: 02-15-2025 End: 02-15-2025 Patient Outreach Paulette Cagle clinical nurse specialistTrim Technician Management Comment on above: Initial phone contac t for Transitional Care Management Table Assembler Metal - H ospital Follow Up Start: 02-11-2025 End: 02-11-2025 Patient Outreach Devon Bynum RN Work Phone: Trim Technician Management Comment on above: Transition Of Care ( Hospital reach in call) Population Health Na vigation Outreach ([facility] Call) Start: 02-10-2025 End: 02-14-2025 Evaluation and management of inpatient [facility] Facility:[facility] Start: 02-09-2025 End: 02-09-2025 Telephone encounter Maria Isabel Silverio RN Work Phone: Hematology/Oncology Comment on above: Care Coordination (F ollow up Note ) Start: 02-08-2025 End: 02-08-2025 Orders Only aPt Pepe RN [facility] Radiology Comment on above: Malignant neoplasm o f head of pancreas (HCC) (Primary Dx) Care Coordination (F ollow Up Note ) Dental Problem Start: 02-05-2025 End: 02-05-2025 Telephone encounter Addison KUMAR Hematology/Oncology Comment on above: Social Work Services ; Psychosocial Assessment Social Work Services ; Family Support Patient Update Patient Question (co ugh) Start: 02-05-2025 End: 02-05-2025 ambulatory [facility] Facility:[facility] Start: 02-05-2025 End: 02-05-2025 Subsequent hospital visit by physician Xr [facility] Reji Shane Work Phone: Radiology Comment on above: Malignant neoplasm o f head of pancreas (HCC) [C25.0] Start: 02-05-2025 End: 02-05-2025 ambulatory Treatment Rm 8 [facility] Ws[facility] Work Phone: Hematology/Oncology Comment on above: Malignant neoplasm o f head of pancreas (HCC) (Primary Dx); Dyspnea and respiratory abnormalities Start: 02-04-2025 End: 02-05-2025 Telephone encounter Maria Isabel Silverio RN Work Phone: Hematology/Oncology Comment on above: Care Coordination (F ollow up Note ) Start: 02-04-2025 End: 02-04-2025 Office outpatient visit 40 minutes Ayaz Nguyễn MD Work Phone: [facility] Comment on above: Pancreatic adenocarc inoma (HCC) (Primary Dx) Start: 02-04-2025 End: 02-04-2025 ambulatory AYAZ NGUYỄN Facility:[facility] Start: 02-03-2025 End: 02-03-2025 Telephone encounter Financial Navigator Viraj Work Phone: Hematology/Oncology Comment on above: Benefits Investigati on Start: 02-01-2025 End: 02-01-2025 E-mail encounter from caregiver Dasha Clemons RN [facility] Start: 02-01-2025 End: 02-01-2025 ambulatory Dasha Clemons [facility] Radiology Comment on above: Port placement on read instructions about holding Eliquis Start: 02-01-2025 End: 02-01-2025 Patient encounter procedure Henok Martinez MD Work Phone: [facility] Comment on above: Pancreatic adenocarc inoma (HCC) (Primary Dx); 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; History of [...] encounter Henok Martinez MD Work Phone: [facility] [place] Comment on above: glucometer Social Work Services Start: 01-28-2025 End: 01-28-2025 Telephone encounter Addison KUMAR Hematology/Oncology Comment on above: Social Work Services Start: 01-28-2025 End: 01-28-2025 ambulatory Treatment Rm 6 Viraj [facility] Work Phone: Hematology/Oncology Comment on above: Malignant neoplasm o f head of pancreas (HCC) (Primary Dx) Start: 01-27-2025 End: 01-27-2025 manager finance [facility] Work Phone: Hematology/Oncology Comment on above: Encounter for educat ion (Primary Dx); 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) Start: 01-26-2025 End: 01-26-2025 ambulatory Stuart Dias RN Trim Technician Management Start: 01-26-2025 End: 01-26-2025 Telephone encounter Henok Martinez MD Work Phone: [facility] Comment on above: Constipation Transition Of Care [...] End: 01-22-2025 Evaluation and management of inpatient MARTÍNJIMENEZ GUERRA Facility:[facility] Start: 01-21-2025 End: 01-21-2025 Telephone encounter Ashutosh Freeman MD Work Phone: [facility] Hematology/Oncology Start: 01-19-2025 End: 01-20-2025 Telephone encounter Henok Martinez MD Work Phone: [facility] Comment on above: diabetic supplies (L ibre 3 CGM system) Start: 01-15-2025 End: 01-15-2025 Evaluation and management of inpatient ADRIÁN SANDHU Facility:[facility] Start: 01-14-2025 End: 01-23-2025 Evaluation and management of inpatient GUILLE GARNICA Facility:[facility] Start: 01-14-2025 Non-patient / Non-visit Dr. Mal Wu [facility] Work Phone: Start: 01-13-2025 Non-patient / Non-visit Dr. Mal Wu [facility] Work Phone: Start: 01-12-2025 Non-patient / Non-visit Dr. Mal Wu [facility] Work Phone: Start: 01-12-2025 End: 01-12-2025 ambulatory Henok Martinez Facility:[facility] Start: 01-11-2025 Non-patient / Non-visit Mohit Lockhart nd [facility] Start: 01-11-2025 Non-patient / Non-visit Dr. Mal Wu [facility] Work Phone: Start: 01-10-2025 ambulatory Mohit Brown Facility [facility] Start: 01-10-2025 End: 01-14-2025 Evaluation and [facility] inpatient [facility] Work Phone: Start: 01-10-2025 Evaluation and management of inpatient Dr. Oniel Golden DO Medical Surgical 3 Work Phone: Start: 01-04-2025 End: 01-04-2025 ambulatory Iona Hatch RN Work Phone: Trim Technician Management Comment on above: Started Initial enro llment outreach for Chronic Disease Management Start: 12-15-2024 End: 12-15-2024 Refill Henok Martinez MD Work Phone: [facility] Comment on above: Refill Request Start: 11-17-2024 End: 11-17-2024 E-mail encounter from caregiver Angelia M Jona SHARPN.POLICE COMMANDING OFFICER Work Phone: Pulmonary Medicine Start: 11-17-2024 End: 11-17-2024 Follow-up encounter Angelia Hart APRN.POLICE COMMANDING OFFICER Work Phone: Pulmonary Medicine Comment on above: follow-up from visit Start: 11-17-2024 End: 11-17-2024 ambulatory ANGELIA HART Facility:[facility] Start: 11-17-2024 End: 11-17-2024 Office outpatient visit 25 minutes Angelia Hart CREDIT ADMINISTRATION OFFICER.POLICE COMMANDING OFFICER Work Phone: Pulmonary Medicine Comment on above: Mild persistent asth ma without complication (Primary Dx); Cough, unspecified type; Hemoptysis; Bronchiectasis without complication (HCC); Dysphagia, unspecified type Start: 11-12-2024 End: 11-12-2024 ambulatory HENOK MARTINEZ Facility:[facility] Start: 11-12-2024 End: 11-12-2024 Subsequent hospital visit by physician [facility] Mob 1 Work Phone: Radiology Comment on above: Epigastric pain [R10 .13] Start: 11-09-2024 End: 11-09-2024 Patient encounter procedure Meliza Wadsworth CCC-CAR REPOSSESSOR [facility] Comment on above: Dysphagia, oropharyn geal phase (Primary Dx) Start: 11-09-2024 End: 11-09-2024 ambulatory Meliza Wadsworth CCC-CAR REPOSSESSOR Work Phone[facility] Start: 11-09-2024 End: 11-09-2024 Subsequent hospital visit by physician Gi/Gu [facility] Work Phone: Radiology Comment on above: Oropharyngeal dyspha melissa [R13.12] Start: 11-06-2024 End: 11-14-2024 Telephone encounter Henok Martinez MD Work Phone: [facility] Comment on above: Results Start: 11-05-2024 End: 11-05-2024 Subsequent hospital visit by physician Elysia [facility] Work Phone: Radiology Comment on above: Hemoptysis [R04.2] Start: 11-05-2024 End: 11-05-2024 ambulatory [facility] Facility:[facility] Start: 11-04-2024 End: 11-04-2024 Patient encounter procedure Henok Martinez MD Work Phone: [facility] Comment on above: Cerebrovascular acci dent (CVA), unspecified mechanism (HCC) (Primary Dx); Type 2 diabetes mellitus without complication, without long-term current use of insulin (HCC); Atrial fibrillation, unspecified type (HCC); Atrial myxoma; Primary hypertension; Hyperlipidemia, unspecified hyperlipidemia type; Bronchiectasis without complication (HCC); Gastroesophageal reflux disease without esophagitis; History of CVA (cerebrovascular accident); 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; Epigastric pain; Hemoptysis Start: 11-04-2024 End: 11-04-2024 ambulatory [facility] Facility:[facility] Start: 10-13-2024 End: 10-13-2024 [facility] Start: 10-13-2024 End: 10-13-2024 Office outpatient visit 15 minutes Virginia Reina APRN.CNP Work Phone: [facility] Comment on above: Acute bronchitis, un specified organism (Primary Dx); Oropharyngeal dysphagia Start: 09-17-2024 End: 09-17-2024 [facility] Facility:[facility] Start: 09-17-2024 End: 09-17-[address] Henok Martinez MD -Physical Therapy Work Phone: Start: 07-09-2024 End: 07-09-2024 ambulatory Jatinder Khan Facility:[facility] Start: 07-01-2024 End: 07-01-2024 ambulatory [facility] Facility:[facility] Start: 07-01-2024 End: 07-01-2024 Patient encounter procedure Henok Martinez MD Work Phone: [facility] Comment on above: Cervical radicular p ain (Primary Dx); Atrial fibrillation, unspecified type (HCC); Hyperlipidemia, unspecified hyperlipidemia type; Primary hypertension; Type 2 diabetes mellitus without complication, without long-term current use of insulin (HCC); History of CVA (cerebrovascular accident) Start: 06-25-2024 End: 06-25-2024 Emergency department patient visit [facility] Facility:[facility] Start: 06-11-2024 ambulatory Nancy Medley MD Work Phone: Pulmonary Medicine Comment on above: Question regarding X R RIBS/CHEST 3V AP RIB/OBLS/CXR RIGHT Start: 06-06-2024 End: 06-06-2024 ambulatory [facility] Facility:[facility] Start: 06-06-2024 End: 06-06-2024 Subsequent hospital visit by physician Elysia [facility] Work Phone: Radiology Comment on above: Rib pain on right si de [R07.81] Start: 06-05-2024 End: 06-05-2024 ambulatory [facility] Facility:[facility] Start: 06-05-2024 End: 06-05-2024 Patient encounter procedure Nancy Medley MD Work Phone: Pulmonary Medicine Comment on above: Mild intermittent as thma without complication (Primary Dx); Bronchiectasis without complication (HCC); Rib pain on right side Start: 06-02-2024 Refill Emma linn OD Work Phone: Ophthalmology Comment on above: Refill Request Start: 05-11-2024 Refill Clarita Boggs APRN.CNP Work Phone: [facility] Comment on above: Refill Request Start: 05-04-2024 Telephone encounter Henok Martinez MD Work Phone: [facility] Comment on above: Results Start: 05-01-2024 End: 05-01-2024 Subsequent hospital visit by physician Elysia [facility] Work Phone: Radiology Comment on above: Abnormal x-ray [R93. 89] Start: 05-01-2024 End: 05-01-2024 Patient encounter procedure Henok Martinez MD Work Phone: [facility] Comment on above: Primary hypertension (Primary [...] 03-20-2024 Refill Henok Martinez MD Work Phone: [facility] [facility] Comment [facility]: Refill Request Start: 03-06-2024 Telephone encounter [facility] Martinez MD [facility] Comment on above: Results Start: 03-05-2024 Telephone encounter Henok Martinez MD Work Phone: [facility] Comment on above: Results Start: 03-04-2024 End: 03-04-2024 Subsequent hospital visit by physician Xr [facility] Work Phone: Radiology Comment on above: Bronchitis [J40] Start: 03-04-2024 End: 03-04-2024 Patient encounter procedure [facility] MD [facility] Comment on above: Type 2 diabetes amy itus without complication, without long- term current use of insulin (HCC) (Primary Dx); Mild intermittent asthma without complication; Bronchiectasis without complication (HCC); Bronchitis; Weight loss Start: 03-02-2024 Telephone encounter Henok Martinez MD Work Phone: [facility] Comment on above: Patient Update; Nathalie ent Question Start: 02-25-2024 End: 02-25-2024 Emergency department patient visit Dr. Henok Martinez [facility] Work Phone: Start: 02-21-2024 Telephone encounter Henok Martinez MD Work Phone: [facility] Comment on above: Medication Request; Patient Update Start: 02-19-2024 End: 02-19-2024 Patient encounter procedure Lana Alanis APRN.POLICE COMMANDING OFFICER Work Phone: [facility] Comment on above: Sore throat (Primary Dx); URI, acute Start: 02-07-2024 End: 02-07-2024 Office outpatient visit 15 minutes Fazal Law CREDIT ADMINISTRATION OFFICER.POLICE COMMANDING OFFICER Work Phone: [facility] Comment on above: Diarrhea, unspecifie d type (Primary Dx) Start: 12-26-2023 Refill Clarita Boggs APRN.POLICE COMMANDING OFFICER Work Phone: [facility] Comment on above: Refill Request Start: 12-16-2023 End: 12-16-2023 Patient encounter procedure Henok Martinez MD Work Phone: [facility] Comment on above: Cerebrovascular acci dent (CVA), unspecified mechanism (HCC) (Primary Dx); History of CVA (cerebrovascular accident); Primary hypertension; Atrial fibrillation, unspecified type (HCC); Atrial myxoma; Bronchiectasis without complication (HCC); Type 2 diabetes mellitus without complication, without long-term current use of insulin (HCC) Start: 11-21-2023 End: 11-21-[address] Henok Martinez Work Phone: [facility] Work Phone: Start: 10-04-2023 End: 10-04-[address] Henok Martinez Work Phone: [facility] Work Phone: Start: 10-04-2023 End: 10-04-[address] 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; Hyperlipidemia, unspecified hyperlipidemia type; History of CVA (cerebrovascular accident); Impaired cognition; Bronchiectasis without complication (HCC); Mild intermittent asthma without complication; Type 2 diabetes mellitus without complication, without long-term current use of insulin (HCC); Gastroesophageal reflux disease without esophagitis; History of uterine cancer; Encounter for immunization; Pill dysphagia; Left ear pain Start: 08-05-2023 Refill Henok Martinez MD Work Phone: [facility] Comment on above: Refill Request Start: 07-30-2023 End: 07-30-2023 Emergency department patient visit Dr. Henok Martinez Work Phone: [facility] Work Phone: Start: 06-25-2023 End: 06-25-2023 Patient encounter procedure Emma Mcnally OD Work Phone: Ophthalmology Comment on above: Dry eye syndrome of bilateral lacrimal glands (Primary Dx); PCO (posterior capsular opacification), left; Type 2 diabetes mellitus without complication, without long-term current use of insulin ([facility]); Pseudophakia of both eyes; Presbyopia Start: 06-19-2023 End: 06-19-[address] Henok Martinez Work Phone: [facility] Work Phone: Start: 06-18-2023 End: 06-18-[address] Henok Martinez Work Phone: [facility] Work Phone: Start: 04-22-2023 End: 04-22-2023 Emergency department patient visit Dr. Henok Martinez Work Phone: [facility]Emer[facility] Department Start: 04-15-2023 End: 04-15-2023 Office outpatient visit 15 minutes Clarita Boggs APRN.CNP Work Phone: [facility] Comment on above: Primary hypertension (Primary Dx); History of CVA (cerebrovascular accident); Atrial fibrillation, unspecified type (HCC) Start: 04-05-2023 End: 04-05-2023 Emergency department patient visit Dr. Henok Martinez Work Phone: [facility]-Emergency Department Start: 04-01-2023 End: 04-01-2023 Patient encounter procedure Henok Martinez MD Work Phone: [facility] Comment on above: Primary hypertension (Primary Dx); Type 2 diabetes mellitus without complication, without long-term current use of insulin (HCC) Start: 03-30-2023 End: 03-31-2023 Emergency department patient visit Dr. Henok Martinez Work Phone: [facility]Emergency Department Start: 03-18-2023 Non-patient / Non-visit Dr. Bernardo Martinez Work Phone: [facility] Start: 03-18-2023 End: 03-18-2023 Admission to same day surgery center Dr. Henok Martinez Work Phone: [facility]-Medical Apparatus Model Maker/Special Procedures Start: 03-18-2023 End: 03-18-[address] Henok Martinez Work Phone: [facility] Work Phone: Start: 03-07-2023 End: 03-07-[address] Henok Martinez Work Phone: [facility] Work Phone: Start: 03-07-2023 End: 03-07-[address] Henok Martinez Work Phone: [facility] Start: 03-07-2023 End: 03-07-[address] Henok Martinez Work Phone: [facility] Start: 02-25-2023 End: 02-25-[address] Nutrition Therapy Comment on above: Assessment; Patient Education Start: 02-15-2023 End: 02-15-2023 Patient encounter procedure Emma Mcnally OD Work Phone: Ophthalmology Comment on above: Type 2 diabetes amy itus without complication, without long- term current use of insulin (HCC) (Primary Dx); Pseudophakia of both eyes; Presbyopia Start: 02-14-2023 Telephone encounter Sadia [facility] gurjit CREDIT ADMINISTRATION OFFICER.POLICE COMMANDING OFFICER Work Phone: OB/Gynecology Comment on above: Results Start: 02-13-2023 End: 02-13-2023 Subsequent hospital visit by physician Tatyana [facility] (I-Stat) Work Phone: Cat Scan Comment on above: Pelvic and perineal pain [R10.2] Start: 02-08-2023 End: 02-08-2023 Patient encounter procedure Sadia Ramsey APRN.POLICE COMMANDING OFFICER Work Phone: OB/Gynecology Comment on above: Vaginal bleeding (Pr imary Dx); Pelvic and perineal pain; History of uterine cancer Start: 01-25-2023 End: 01-25-2023 Patient encounter procedure Henok Martinez MD Work Phone: [facility] Comment on above: Primary hypertension (Primary Dx); Type 2 diabetes mellitus without complication, without long-term current use of insulin (HCC); Atrial myxoma; History of uterine cancer; History of CVA (cerebrovascular accident); Gastroesophageal reflux disease without esophagitis; Bronchiectasis without complication (HCC); Mild intermittent asthma without complication Start: 11-23-2022 End: 11-23-2022 Nursing evaluation of patient and report Mi Nurse Work Phone: [facility] Comment on above: Primary hypertension (Primary Dx) Start: 11-23-2022 Telephone encounter Henok Martinez MD Work Phone: [facility] Comment on above: Blood Pressure Check (/) Start: 11-22-2022 End: 11-22-2022 Patient encounter procedure Nancy Medley MD Work Phone: Pulmonary Medicine Comment on above: Bronchiectasis witho ut complication (HCC) (Primary Dx); Mild intermittent asthma without complication Start: 11-20-2022 End: 11-20-2022 Subsequent hospital visit by physician [facility] (I-Stat) Work Phone: Cat Scan Comment on above: Chronic cough [R05.3 ] Start: 11-16-2022 End: 11-16-2022 ambulatory Pulm Lab [facility] Work Phone: PULM LAB [facility] Comment on above: Spirometry Start: 11-16-2022 End: 11-16-2022 Patient encounter procedure Pulm Lab [facility] Work Phone: [facility] Comment on above: Chronic cough (Prima ry Dx); Abnormal chest x-ray; Mild persistent asthma without complication Start: 10-26-2022 End: 10-26-2022 Subsequent hospital visit by physician Xr [facility] [place] Work Phone: Radiology Comment on above: Cough, unspecified t ype [R05.9] Start: 10-26-2022 End: 10-26-2022 Patient encounter procedure Henok Martinez MD Work Phone: [facility] Comment on above: Cough, unspecified t ype (Primary Dx); Primary hypertension Start: 10-23-2022 Refill Henok Martinez MD Work Phone: [facility] Comment on above: Refill Request Start: 10-15-2022 Telephone encounter Henok Martinez MD Work Phone: [facility] Medicine [facility] Comment on above: Results Start: 10-12-2022 End: 10-12-2022 ambulatory Pulm Lab [facility] Work Phone: PUL[facility] LAB [facility] Comment on above: Spirometry Start: 10-12-2022 End: 10-12-2022 Patient encounter procedure Pulm Lab [facility] Work Phone: [facility] Start: 10-01-2022 End: 10-01-2022 Patient encounter procedure Henok Martinez MD Work Phone: [facility] [place] Comment on above: Atrial myxoma (Prima ry Dx); Primary hypertension; Type 2 diabetes mellitus without complication, without long-term current use of insulin (HCC); History of CVA (cerebrovascular accident); Mild intermittent asthma without complication Start: 09-25-2022 ambulatory Chanel avila RN LD SURGERY Start: 09-17-2022 Telephone encounter Henok Martinez MD Work Phone: [facility] Comment on above: Medication Problem ( Dry cough) Start: 09-05-2022 Telephone encounter Monet Krishnamurthy MD Work Phone: General Surgery Comment on above: 10/04/2022 colon lodi Start: 09-05-2022 End: 09-05-2022 Patient encounter procedure Monet Calvo MD Work Phone: General Surgery Comment on above: Change in bowel habi ts (Primary Dx) Start: 07-16-2022 Refill Henok Martinez MD Work Phone: [facility] [place] Comment on above: Refill Request (Need s 90 days & New Pharmacy) Start: 05-18-2022 Refill Henok Martinez MD Work Phone: [facility] [place] Comment on above: Refill Request Start: 04-23-2022 Telephone encounter Henok Martinez MD Work Phone: [facility] [place] Comment on above: Medication Request Start: 01-29-2022 Telephone encounter Henok Martinez MD Work Phone: Family Medicine [place] Comment on above: Results; Patient Upd ate Start: 01-26-2022 End: 01-26-2022 Patient encounter procedure Henok Martinez MD Work Phone: [facility] Comment on above: History of CVA (cere brovascular accident) (Primary Dx); Type 2 diabetes mellitus without complication, without long-term current use of insulin (HCC); Primary hypertension; Atrial myxoma Procedures Date Procedure Procedure Detail Performing Clinician Start: 05-30-2025 CT of thorax, abdomen and pelvis with contrast Dr. Henok Martinez MD Work Phone: Start: 05-30-2025 Urnls dip stick/tablet reagent auto microscopy Dr. Henok Martinez MD Work Phone: Start: 05-30-[address] Carlos Martinez MD Work Phone: Start: 05-30-2025 SARS-CoV-2, Influenza & RSV (PCR) Dr. Bernardo Martinez MD Work Phone: Start: 05-25-2025 Gen seq analys hali org/hemtolmphoid [...] Work Phone: Start: 01-12-[address] Hneok Farmer Work Phone: Start: 01-09-2025 Computed tomography of abdomen and pelvis with intravenous contrast Dr. Henok Martinez MD Work Phone: Start: 11-09-2024 Radiologic exam swallow function contrast study Virginia Reina CREDIT ADMINISTRATION OFFICER.POLICE COMMANDING OFFICER Work Phone: Start: 11-05-2024 Radiologic exam chest [...] A/B & RSV NAAT, ROUTINE Lana Alanis CREDIT ADMINISTRATION OFFICER.POLICE COMMANDING OFFICER Work Phone: Start: 02-19-2024 STREP A MOLECULAR [...] 02-13-2023 Ct pelvis w/contrast material Sadia [facility] gurjit CREDIT ADMINISTRATION OFFICER.POLICE COMMANDING OFFICER Work Phone: Start: 02-08-2023 Urnls dip stick/tablet rgnt auto w/o microscopy Sadia [place] CREDIT ADMINISTRATION OFFICER.POLICE COMMANDING OFFICER Work Phone: Start: 11-20-2022 Ct thorax w/o [...] Golden DO H/O: hysterectomy H/O: hysterectomy Dr. Belinda Wu DO Plan of Treatment Date Care Activity Detail Author Start: 11-05-2025 Hepatitis B screening Urine Albumin:Creatinine Ratio [facility] Start: 11-05-2025 Hepatitis B surface antibody level LDL Cholesterol [facility] Start: 07-01-2025 Covid-19 Vaccine () Covid-19 Vaccine () [facility] Comment on above: Postponed from 06/28/2024 (Declined at t his time) Start: 07-01-2025 Covid-19 Vaccine () Covid-19 Vaccine () [facility] Comment on above: Postponed from 06/28/2024 (Declined at t his time) Start: 07-01-2025 Covid-19 Vaccine (3 - Pfizer risk series) Covid-19 Vaccine (3 - Pfizer risk series) [facility] Comment on above: Postponed from 03/29/2021 (Declined at t his time) Start: 07-01-2025 Shingrix Vaccine (1 of 2) Shingrix Vaccine (1 of 2) [facility] Comment on above: Postponed from 1990 (Declined at t his time) Postponed from 06/17 (Declined at this time) Start: 07-01-2025 Urine microalbumin profile DTaP,Tdap,Td Vaccine (1 - Tdap) [facility] Comment on above: Postponed from 1959 (Declined at t his time) Start: 06-28-2025 Influenza vaccination [facility] Start: 06-24-2025 End: 06-24-2025 Patient encounter procedure 06/24/2025 9:15 AM EDT Appointment [address] [address] Anel iDaz MD [address] [place] [address] Pt on Eliquis and aware to stop 3 days prior, not on diabetic meds to stop [facility] Comment on above: Pt on Eliquis and aware to stop 3 days p rior, not on diabetic meds to stop Start: 2025 End: 2025 ambulatory 2025 10:40 AM EDT PAT Pre Surgical Testing [address] [place] [address] Diaz on 06/24 9:15am Pre Surgical Testing Comment on above: ERCP scheduled with Dr Diaz on 06/24 9:1 5am Start: 06-04-2025 End: 06-04-2025 Patient encounter procedure 06/04/2025 11:00 AM EDT Office Visit Radiation Oncology [address] [place], [place] [id number] Lamar Stoner MD [address] [facility] [address] [address] OV Radiation Oncology Comment on above: OV Start: 06-04-2025 End: 06-04-2025 ambulatory 06/04/2025 10:10 AM EDT Visit (SP) Office Hematology/Oncology [address] [place], [place] [id number] Juan Miguel Yusuf MD [address] [place] [address] OV/CT 05/26* Hematology/Oncology Comment on above: OV/CT 05/26* Start: 05-31-2025 Verification routine [facility] Start: 05-31-2025 Admission procedure [facility] Start: 05-31-2025 Hospital admission, emergency, from emergency room, medical nature [facility] Start: 05-30-2025 [facility] Start: 05-30-2025 Bacteria identified in Blood by Culture Blood Culture [facility] Start: 05-26-2025 Subsequent hospital visit by physician 05/26/2025 1:28 PM EDT Hospital Encounter Cat Scan [address] [place] [address] 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) [C25.0] Cat Scan Comment on above: Malignant neoplasm of head of pancreas ( HCC) [C25.0] Start: 05-26-2025 End: 05-26-2025 Patient encounter procedure Cat Scan Comment on above: Malignant neoplasm of head of pancreas ( HCC) [C25.0] Start: 05-26-2025 End: 05-26-2025 ambulatory 05/26/2025 10:30 AM EDT Infusion Center Hematology/Oncology [address] [place] [address] (SO)CBC(PORT)D15 GEMZAR ABRAXAZANE* Hematology/Oncology Comment on above: (SO)CBC(PORT)D15 GEMZAR ABRAXAZANE* Start: 05-25-2025 End: 08-24-2025 Cancer Ag 19-9 [Units/volume] in Serum or Plasma [facility] Comment on above: Expected: 05/25/2025, Expires: Start: 05-25-2025 End: 05-25-2025 ambulatory 05/25/2025 12:00 PM EDT Visit (SP) Office Hematology/Oncology [address] [place] [address] Juan Miguel Yusuf MD [address] [place] [address] OV* BACK IN [facility] Hematology/Oncology Comment on above: OV* BACK IN [facility] Start: 05-19-2025 End: 05-19-2025 ambulatory 05/19/2025 11:00 AM EDT Infusion Center Hematology/Oncology [address] [place] [address] (SO)CBC(PORT)D8 GEMZAR ABRAXANE* Hematology/Oncology Comment on above: (SO)CBC(PORT)D8 GEMZAR ABRAXANE* Start: 05-12-2025 End: 05-12-2025 ambulatory 05/12/2025 11:00 AM EDT Infusion Center Hematology/Oncology [address] [place] [address] QMO GEMZAR ABRAXANE(PORT)/C4-6/LAB &OV 05/10* Hematology/Oncology Comment on above: QMO GEMZAR ABRAXANE(PORT)/C4-6/LAB&OV * Start: 05-10-2025 End: 05-10-2025 ambulatory Hematology/Oncology Comment on above: (SO)CBC/CMP(S)(PORT)* OV/LAB EARLY(PORT)/C HEMO 05/12* VIRGILIOH Start: 05-05-2025 End: 05-05-2025 ambulatory 05/05/2025 11:00 AM EDT Infusion Center Hematology/Oncology [address] [place] [address] (SO)CBC(PORT)D8 GEMZAR ABRAXANE* Hematology/Oncology Comment on above: (SO)CBC(PORT)D8 GEMZAR ABRAXANE* Start: 05-01-2025 Anxiety Screening Anxiety Screening [facility] Start: 05-01-2025 Depression Screening Depression Screening [facility] Start: 05-01-2025 Diabetic foot examination Diabetic Foot Exam [facility] Start: 04-29-2025 End: 04-29-2025 Patient encounter procedure 04/29/2025 2:45 PM EDT Office Visit [facility] Ophthalmology [address] [place] [address] Emma Mcnally, OD [address] [place] [address] diabetic eye exam Ophthalmology Comment on above: diabetic eye exam Start: 04-29-2025 End: 07-29-2025 CBC W Auto Differential panel - Blood COMPLETE BLOOD COUNT AND DIFFERENTIAL Lab Routine 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) Expected: 04/29/2025, Expires: 07/29/2025 [facility] Work Phone: Comment on above: Expected: 04/29/2025, Expires: Start: 04-29-2025 End: 07-29-2025 Comprehensive metabolic 2000 panel - Serum or Plasma COMPREHENSIVE METABOLIC PANEL Lab Routine 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) Expected: 04/29/2025, Expires: 07/29/2025 [facility] Comment on above: Expected: 04/29/2025, Expires: Start: 04-29-2025 End: 07-29-2025 Hemoglobin A1c in Blood HEMOGLOBIN A1C Lab Routine Type 2 diabetes mellitus with hyperglycemia, with long-term current use of insulin (HCC) Expected: 04/29/2025, Expires: 07/29/2025 [facility] Comment on above: Expected: 04/29/2025, Expires: Start: 04-28-2025 Glaucoma screening Dilated Retinal Exam [facility] Start: 04-28-2025 End: 04-28-2025 ambulatory 04/28/2025 10:30 AM EDT Infusion Center Hematology/Oncology [address] [place], [place] [id number] (SO)CBC(PORT)D15 GEMZAR ABRAXAZANE* Hematology/Oncology Comment on above: (SO)CBC(PORT)D15 GEMZAR ABRAXAZANE* Start: 04-26-2025 Influenza vaccination Influenza Vaccine (#1) [facility] Comment on above: Postponed from 06/28/2024 (Declined at t his time) Start: 04-22-2025 End: 04-22-2025 ambulatory 04/22/2025 11:00 AM EDT Infusion Center Hematology/Oncology [address] [place], [place] [phone] QMO GEMZAR ABRAXANE(PORT)/C4-6/LAB &OV 04/21* Hematology/Oncology Comment on above: QMO GEMZAR ABRAXANE(PORT)/C4-6/LAB&OV * Start: 04-21-2025 End: 04-21-2025 ambulatory Hematology/Oncology Comment on above: (SO)CBC/CMP(S)(PORT)* OV/LAB EARLY(PORT)/C HEMO 04/22* ABRAMOVICH (SO)CBC(PORT)D15 GEM BROOKS ABRAXAZANE* (SO)CBC(PORT)D8 GEMZ AR ABRAXANE* Start: 04-20-2025 End: 04-20-2025 Patient encounter procedure 04/20/2025 8:00 AM EDT Appointment [address] [address] Anel Diaz MD [address] [place] [address] Pt on Eliquis and aware to stop 3 days prior, not on any diabetic meds that need stopped [facility] Comment on above: Pt on Eliquis and aware to stop 3 days p rior, not on any diabetic meds that need stopped Start: 04-19-2025 Hemoglobin A1c measurement HbA1C [facility] Start: 04-19-2025 End: 04-19-2025 Patient encounter procedure 04/19/2025 1:30 PM EDT Office Visit Radiation Oncology [address] [place], [place] [phone] Lamar Stoner MD [address] [facility] [address] [place], [place] [phone] PANCREATIC ADENOCARCINOMA CONSULT* Radiation Oncology Comment on above: PANCREATIC ADENOCARCINOMA CONSULT* Start: 04-19-2025 End: 04-19-2025 ambulatory 04/19/2025 9:20 AM EDT PAT Pre Surgical Testing [address] [place], [place] [address] ERCP IN ENDO Pre Surgical Testing Comment on above: ERCP IN ENDO Start: 04-14-2025 End: 04-14-2025 ambulatory Hematology/Oncology Comment on above: (SO)CBC(PORT)D8 GEMZAR ABRAXANE* QMO GEMZAR ABRAXANE( PORT)/C3-6/LAB&OV 04/12* Start: 04-12-2025 End: 04-12-2025 ambulatory Hematology/Oncology Comment on above: (SO)CBC/CMP(S)(PORT)* OV/LAB EARLY(PORT)/C HEMO 04/14* ABRHERIH Start: 04-07-2025 End: 04-07-2025 ambulatory Reji [address] [facility] Comment on above: CBC* D15 GEMZAR ABRAXAZAN E/LAB EARLY* (SO)CBC* (SO)CBC(PORT)D15 GEM BROOKS ABRAXAZANE* QMO GEMZAR ABRAXANE( PORT)/C3-6/LAB&OV 04/05* Start: 04-06-2025 End: 04-06-2025 Patient encounter procedure 04/06/2025 1:45 PM EDT Office Visit [facility] [address] [facility] [address] [place] [address] Ayaz Nguyễn MD [address] [place], [place] [id number] Patient wants to discuss options other than chemo [facility] Comment on above: Patient wants to discuss options other t santos chemo Start: 04-05-2025 End: 04-05-2025 ambulatory Hematology/Oncology Comment on above: (SO)CBC/CMP(S)(PORT)OV TODAY* OV/LAB EARLY(PORT)/C HEMO * ABRAMOVICH Start: 03-31-2025 End: 03-31-2025 ambulatory Reji Ramoswn [facility] Comment on above: CBC* D8 GEMZAR ABRAXANE/L AB EARLY* (SO)CBC* (SO)CBC(PORT)D8 GEMZ AR ABRAXANE* Start: 03-30-2025 End: 03-30-2025 Patient encounter procedure 03/30/2025 2:00 PM EDT Office Visit Family Virgie Mendoza [address] [place] [phone] Henok Martinez MD [address] [place], [place] [phone] 6 week follow up [facility] Virgie Mendoza Comment on above: 6 week follow up Start: 03-30-2025 End: 03-30-2025 ambulatory 03/30/2025 10:00 AM EDT [facility] Hematology/Oncology [address] [place], [place] [phone] (SO)CBC(PORT)D15 GEMZAR ABRAXAZANE* Hematology/Oncology Comment on above: (SO)CBC(PORT)D15 GEMZAR ABRAXAZANE* Start: 03-25-2025 End: 03-25-2025 ambulatory Hematology/Oncology Comment on above: QMO GEMZAR ABRAXANE/C3-6/LAB&OV 03/23* QMO GEMZAR ABRAXANE( PORT)/C3-6/LAB&OV 03/23* (SO)CBC(PORT)D15 GEM BROOKS ABRAXAZANE* Start: 03-23-2025 End: 03-23-[address] [facility] Comment on above: CBC/CMP* OV/LAB [...] procedure 03/12/2025 2:40 PM EDT Office Visit Family Virgie Mendoza [address] [place] [address] Henok Martinez MD [address] [place], [place] [phone] 6 wk [facility] [facility] Virgie Mendoza Comment on above: 6 wk follow up Start: 03-11-2025 End: 03-11-2025 ambulatory 03/11/2025 1:00 PM EDT [facility] [address] [place] [address] [facility] [address] [place] [address] Pancreatic cancer [facility] Comment on above: Pancreatic cancer Start: 03-10-2025 End: 05-30-2026 XR Chest PA and Lateral XR CHEST 2V FRONTAL/LAT Radiology Routine RSV (respiratory syncytial virus pneumonia) Expected: 03/10/2025, Expires: 03/26/2026 [facility] Work Phone: Comment on above: Expected: 03/10/2025, Expires: Start: 03-10-2025 End: 03-10-2025 ambulatory 03/10/2025 10:30 AM EDT [facility] Hematology/Oncology [address] [place] [address] QMO GEMZAR ABRAXANE(PORT)/C2-6/LAB &OV 03/09* Hematology/Oncology Comment on above: QMO GEMZAR ABRAXANE(PORT)/C2-6/LAB&OV * Start: 03-10-2025 End: 03-10-2025 ambulatory [facility] Laboratory Comment on above: CBC* CBC/ GEMZAR ABRAXAZA NE/D15* D15 GEMZAR ABRAXAZAN E/LAB EARLY* (SO)CBC* (SO)CBC(PORT)D15 GEM BROOKS ABRAXAZANE* Start: 03-09-2025 End: 03-09-2025 ambulatory Hematology/Oncology Comment on above: (SO)CBC/CMP(S)(PORT)* OV/LAB EARLY(PORT)/C HEMO 03/10* ABRAMOVICH Start: 03-05-2025 End: 03-05-2025 Patient encounter procedure 03/05/2025 10:30 AM EDT Office Visit [facility] [address] [facility] [address] [place] [address] Anisa Gutierrez, MS [address] [place] [address] Pancreatic cancer [facility] Comment on above: Pancreatic cancer Start: 03-04-2025 End: 03-04-2025 Admission to same day surgery center 03/04/2025 12:00 PM EDT - 03/04/2025 1:30 PM EDT [facility] Radiology [address] [place] [address] Yasmin Lawrence MD, [address] [place] [address] INSERTION PORT VENOUS ACCESS ADULT [facility] Radiology Comment on above: INSERTION PORT VENOUS ACCESS ADULT Start: 03-04-2025 End: 03-04-2025 Insj tunneled ctr vad w/subq port age 5 yr/> INSERTION PORT VENOUS ACCESS ADULT 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) 03/04/2025 12:00 PM EDT [facility] IR Start: 03-04-2025 Subsequent hospital visit by physician 03/04/2025 12:00 PM EDT Hospital Encounter [facility] Radiology [address] [place] [address] Yasmin Lawrence MD, [address] [place] [address] 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) [C25.0] [facility] Radiology Comment on above: Malignant neoplasm of head of pancreas ( HCC) [C25.0] Start: 03-03-2025 End: 03-03-2025 ambulatory [facility] Laboratory Comment on above: CBC* CBC/GEMZAR ABRAXANE/ D8* D8 GEMZAR ABRAXANE/L AB EARLY* (SO)CBC* (SO)CBC(PORT)D8 GEMZ AR ABRAXANE* Start: 02-24-2025 End: 02-24-2025 Patient encounter procedure 02/24/2025 11:40 AM EDT Office Visit [facility] [place] [address] [place] [address] Jorge Becker MD [address] [place], [place] [id number] continued cough follow up (PT WAS ADMITTED TO [facility] 02/10-02/14/25 DX:PNEUMONIA, RSV) - patient insisting on seeing MD, no SAFETY AND SECURITY OFFICER [facility] [place] Comment on above: continued cough follow up (PT WAS ADMITT ED TO [facility] 02/10-02/14/25 DX:PNEUMONIA, RSV) - patient insisting on seeing MD, no SAFETY AND SECURITY OFFICER Start: 02-24-2025 End: 02-24-2025 ambulatory Hematology/Oncology Comment on above: QMO GEMZAR ABRAXANE/D1/C2/6-LAB&OV 02/23* QMO GEMZAR ABRAXANE/ C2-6/LAB&OV 02/23* QMO GEMZAR ABRAXANE( PORT)/C2-6/LAB&OV 02/22* Start: 02-23-2025 End: 02-23-2025 ambulatory [facility] Comment on above: CBC/CMP* CBC/CMP/OV/CHEMO 01/28 0* OV/LAB EARLY/CHEMO * PARAMJIT Start: 02-22-2025 End: 02-22-2025 ambulatory [facility] Laboratory Comment on above: (SO)CBC/CMP(S)* OV/LAB EARLY/CHEMO * PARAMJIT (SO)CBC/CMP(S)(PORT) * OV/LAB EARLY(PORT)/C HEMO 02/24* PARAMJIT Start: 02-19-2025 End: 02-19-2025 Patient encounter procedure 02/19/2025 1:00 PM EDT Office Visit Endocrinology [address] [place] [address] Rosaura Sanchez MD [address] [place], [place] [address] Type 2 diabetes mellitus without complication, without long-term current use of ... Endocrinology Comment on above: Type 2 diabetes mellitus without complic ation, without long-term current use of ... Start: 02-18-2025 End: 02-18-2025 Admission to same day surgery center 02/18/2025 10:30 AM EDT - 02/18/2025 12:00 PM EDT Surgery [facility] Radiology [address] [place] [address] [place], [address] [address] [place] [address] INSERTION PORT VENOUS ACCESS ADULT [facility] Radiology Comment on above: INSERTION PORT VENOUS ACCESS ADULT Start: 02-18-2025 End: 02-18-2025 Insj tunneled ctr vad w/subq port age 5 yr/> INSERTION PORT VENOUS ACCESS ADULT 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) 02/18/2025 10:30 AM EDT ME IR Start: 02-18-2025 Subsequent hospital visit by physician [facility] Radiology Comment on above: Malignant neoplasm of head of pancreas ( HCC) [C25.0] Start: 02-16-2025 End: 02-16-2025 Patient encounter procedure 02/16/2025 12:00 PM EDT Office Visit [facility] [place] [address] [place], [place] [id number] Cinthia Reno CREDIT ADMINISTRATION OFFICER.POLICE COMMANDING OFFICER [address] [place], [place] [address] Hospital follow up D/C [facility] 02.14.2025 Admitted for: Acute Pneumonia [facility] [place] Comment on above: Hospital follow up D/C [facility] Admitted for: Acute Pneumonia Start: 02-12-2025 End: 02-12-2025 [facility] Comment on above: CBC* CBC/QMO GEMZAR ABRAX ANE/D15* D15 GEMZAR ABRAXANE/ LAB EARLY* (SO)CBC* (SO)CBC(PORT) D15 GE MZAR ABRAXANE* (SO)CBC Start: 02-11-2025 End: 02-11-2025 Patient encounter procedure 02/11/2025 12:40 PM EDT Office Visit [facility] [address] [place], [place] [address] Virginia Reina, CREDIT ADMINISTRATION OFFICER.POLICE COMMANDING OFFICER [address] [place] [address] . [facility] Comment on above: . Start: 02-08-2025 End: 05-10-2025 PT panel - Platelet poor plasma by Coagulation assay PROTHROMBIN TIME Lab Routine 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) Expected: 02/08/2025, Expires: 05/10/2025 [facility] Work Phone: Comment on above: Expected: 02/08/2025, Expires: Start: 02-08-2025 End: 02-08-2025 Admission to same day surgery center 02/08/2025 12:00 PM EDT - 02/08/2025 1:30 PM EDT Surgery [facility] Radiology [address] [place] [address] [place] [address] [facility] [place], [place] [id number] INSERTION PORT VENOUS ACCESS ADULT [facility] Radiology Comment on above: INSERTION PORT VENOUS ACCESS ADULT Start: 02-08-2025 End: 02-08-2025 Insj tunneled ctr vad w/subq port age 5 yr/> INSERTION PORT VENOUS ACCESS ADULT 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) 02/08/2025 12:00 PM EDT [facility] IR Start: 02-08-2025 Subsequent hospital visit by physician 02/08/2025 12:00 PM EDT Hospital Encounter [facility] Radiology [address] [place] [address] [place] [address] [place], [place] [id number] 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) [C25.0] [facility] Radiology Comment on above: Malignant neoplasm of head of pancreas ( HCC) [C25.0] Start: 02-05-2025 End: 02-05-2025 ambulatory [facility] Laboratory Comment on above: CBC* CBC/QMO GEMZAR ABRAX AZANE/D8* D8 GEMZAR ABRAXAZANE /LAB EARLY* (SO)CBC* Start: 02-04-2025 End: 02-04-2025 Patient encounter procedure 02/04/2025 11:00 AM EDT Office Visit [facility] SUR[facility]ERY [facility] [address] [facility] 3rd [place] [address] Ayaz Nguyễn MD [address] [place], [place] [phone] (Fax) [place] [facility] Comment on above: RUST Start: 02-03-2025 Hemoglobin A1c measurement HbA1C [facility] Start: 02-03-2025 End: 02-03-2025 Patient encounter procedure 02/03/2025 7:15 AM EDT Office Visit Endocrinology [address] [place] [address] Margaret Macdonald APRN.POLICE COMMANDING OFFICER [address] [place] [address] Type 2 diabetes mellitus with hyperglycemia, with long-term current use of insul... Endocrinology Comment on above: Type 2 diabetes mellitus with hyperglyce keiry, with long-term current use of insul... Start: 02-01-2025 End: 02-01-2025 Patient encounter procedure 02/01/2025 11:00 AM EDT Office Visit [facility] [address] [place] [address] Henok Martinez MD [address] [place] [address] Hospital discharge follow up [facility] Comment on above: Hospital discharge follow up Start: 01-28-2025 End: 01-28-2025 ambulatory [facility] Laboratory Comment on above: CBC* CBC/START QMO GEMZAR ABRAXANE/D1/C1/6* (SO)CBC* (SO)CBC/START QMO GE MZAR ABRAXANE/D1/C1/6* Start: 01-27-2025 End: 01-27-2025 ambulatory 01/27/2025 10:30 AM EDT [facility]fusion [facility] Hematology/Oncology [address] [place] [address] Wstr, Table [employer] [facility] [address] [place] [address] [facility] Hematology/Oncology Comment on above: CHEMO ED Start: 01-25-2025 End: 01-25-2025 ambulatory 01/25/2025 8:30 AM EDT Visit (SP) Office Hematology/Oncology [address] [place] [id number] Juan Miguel Yusuf MD [address] [place] [address] SAFETY AND SECURITY OFFICER/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) [C25.0]/IST AVAILABLE OK PER NURSE/ REF BY ASHUTOSH FREEMAN* Hematology/Oncology Comment on above: SAFETY AND SECURITY OFFICER/Malignant neoplasm of head of pancrea s (HCC) [C25.0]/IST AVAILABLE OK PER NURSE/ REF BY ASHUTOSH FREEMAN* Start: 01-21-2025 End: 01-21-2025 Patient encounter procedure 01/21/2025 10:15 AM EDT Office Visit [facility] [address] [facility] [place] [address] Emma Mcnally, OD [address] [place] [address] diabetic eye exam- has been squinting Ophthalmology Comment on above: diabetic eye exam- has been squinting Start: 01-14-2025 Patient discharge [facility] Start: 01-14-2025 [facility] Start: 01-12-2025 End: 01-12-2025 Patient encounter procedure 01/12/2025 2:00 PM EDT Office Visit [facility] [place] [address] [place] [address] Henok Martinez MD [address] [place] [address] 4 week follow up [facility] Comment on above: 4 week follow up Start: 01-11-2025 Speech therapy assessment [facility] Start: 01-11-2025 [facility] Start: 01-10-2025 Speech therapy assessment [facility] Start: 01-10-2025 Care planning and problem solving actions [facility] Start: 01-10-2025 End: 01-10-2025 [facility] Start: 01-10-2025 Care regimes management [facility] Start: 01-10-2025 Notification of physician [facility] Start: 01-10-2025 Referral to gastroenterology service [facility] Start: 01-10-2025 Application of intermittent pneumatic compression device [facility] Start: 01-10-2025 Assessment of risk of venous thromboembolism [facility] Start: 01-10-2025 Insertion of catheter into peripheral vein [facility] Start: 01-10-2025 Measuring intake and output [facility] Start: 01-10-2025 Providing care according to standard [facility] Start: 01-10-2025 Provision of activity privileges [facility] Start: 01-10-2025 Referral to occupational therapist [facility] Start: 01-10-2025 Referral to service [facility] Start: 01-10-2025 Following clinical pathway protocol [facility] Start: 01-10-2025 Verification routine [facility] Start: 01-10-2025 Admission procedure [facility] Start: 01-10-2025 Hospital admission, emergency, from emergency room, medical nature [facility] Start: 01-10-2025 Cancer antigen 19-9 measurement [facility] Start: 01-10-2025 Patient referral to dietitian [facility] Start: 12-25-2024 End: 12-25-2024 Patient encounter procedure 12/25/2024 3:00 PM EST Office Visit [facility] [place] [address] [place] [address] Henok Martinez MD [address] [place] [address] 4 week follow up [facility] [place] Comment on above: 4 week follow up Start: 12-16-2024 RSV Vaccine (1 - 1-dose 60+ series) RSV Vaccine (1 - 1-dose 60+ series) [facility] Comment on above: Postponed from 2000 (Declined at t his time) Start: 12-16-2024 RSV Vaccine (1 - 1-dose 75+ series) RSV Vaccine (1 - 1-dose 75+ series) [facility] Comment on above: Postponed from 2015 (Declined at t his time) Start: 12-07-2024 End: 12-07-2024 Patient encounter procedure 12/07/2024 2:45 PM EST Office Visit Pulmonary Medicine [address] [place] [address] Nancy Medley MD [address] [place] [id number] 6 month follow up Pulmonary Medicine Comment on above: 6 month follow up Start: 12-02-2024 End: 12-02-2024 Patient encounter procedure 12/02/2024 2:00 PM EST Office Visit Endocrinology [address] [place] [id number] Margaret Macdonald, SHY.POLICE COMMANDING OFFICER [address] [place] [address] Type 2 diabetes mellitus without complication, without [...] EST Appointment Radiology [address] [place] [address] Epigastric pain [R10.13]; Elevated lipase [R74.8] Radiology Comment on above: Epigastric pain [R10.13]; Elevated lipas e [R74.8] Start: 11-09-2024 End: 11-09-2024 Patient encounter procedure Radiology Comment on above: Oropharyngeal dysphagia [R13.12] Start: 11-06-2024 End: 02-05-2025 Lipase [Enzymatic activity/volume] in Serum or Plasma LIPASE Lab Routine Epigastric pain Elevated lipase Expected: 11/06/2024, Expires: 02/05/2025 [facility] Work Phone: Comment on above: Expected: 11/06/2024, Expires: Start: 11-04-2024 End: 11-04-2024 Patient encounter procedure 11/04/2024 3:40 PM EST Office Visit Family [facility] [address] [place] [address] Henok Martinez MD [address] [place] [address] 6 month follow up [facility] Comment on above: 6 month follow up Start: 11-04-2024 End: 02-03-2025 CBC W Auto Differential panel - Blood COMPLETE BLOOD COUNT AND DIFFERENTIAL Lab Routine Primary hypertension Expected: 11/04/2024, Expires: 02/03/2025 [facility] Comment on above: Expected: 11/04/2024, Expires: Start: 11-04-2024 End: 02-03-2025 Comprehensive metabolic 2000 panel - Serum or Plasma COMPREHENSIVE METABOLIC PANEL Lab Routine Primary hypertension Expected: 11/04/2024, Expires: 02/03/2025 [facility] Comment on above: Expected: 11/04/2024, Expires: Start: 11-04-2024 End: 02-03-2025 Hemoglobin A1c in Blood HEMOGLOBIN A1C Lab Routine Type 2 diabetes mellitus without complication, without long-term current use of insulin (HCC) Expected: 11/04/2024, Expires: 02/03/2025 [facility] Work Phone: Comment on above: Expected: 11/04/2024, Expires: Start: 11-04-2024 End: 02-03-2025 Lipase [Enzymatic activity/volume] in Serum or Plasma LIPASE Lab Routine Epigastric pain Expected: 11/04/2024, Expires: 02/03/2025 [facility] Comment on above: Expected: 11/04/2024, Expires: Start: 11-04-2024 End: 02-03-2025 Lipid 1996 panel - Serum or Plasma LIPID PANEL BASIC Lab Routine Type 2 diabetes mellitus without complication, without long-term current use of insulin (HCC) Expected: 11/04/2024, Expires: 02/03/2025 [facility] Comment on above: Expected: 11/04/2024, Expires: Start: 11-04-2024 End: 02-03-2025 Microalbumin/Creatinine [Mass Ratio] in Urine ALBUMIN/CREATININE RATIO, URINE Lab Routine Type 2 diabetes mellitus without complication, without long-term current use of insulin (HCC) Expected: 11/04/2024, Expires: 02/03/2025 [facility] Comment on above: Expected: 11/04/2024, Expires: 5 Start: 10-14-2024 End: 11-12-2025 RF videography Hypopharynx and Esophagus Views W liquid and paste contrast PO during swallowing XR MODIFIED BARIUM SWALLOW W SPEECH THERAPY Radiology Routine Oropharyngeal dysphagia Expected: 10/14/2024, Expires: 11/12/2025 [facility] Work Phone: Comment on above: Expected: 10/14/2024, Expires: Start: 09-17-2024 Hepatitis B screening Urine Albumin:Creatinine Ratio [facility] Start: 09-17-2024 Hepatitis B surface antibody level LDL Cholesterol [facility] Start: 09-05-2024 Covid-19 Vaccine ( season) Covid-19 Vaccine ( season) [facility] Comment on above: Postponed from 06/28/2023 (Declined at t his time) Start: 09-05-2024 Hepatitis B Vaccine (1 of 3 - Risk 3-dose series) Hepatitis B Vaccine (1 of 3 - Risk 3-dose series) [facility] Comment on above: Postponed from 2000 (Declined at t his time) Start: 08-01-2024 Hemoglobin A1c measurement HbA1C [facility] Start: 06-28-2024 Influenza vaccination [facility] Start: 06-10-2024 End: 06-10-2024 Patient encounter procedure 06/10/2024 2:00 PM EDT Office Visit Endocrinology [address] [place] [address] Margaret Macdonald, CREDIT ADMINISTRATION OFFICER.POLICE COMMANDING OFFICER [address] [place] [address] Type 2 diabetes mellitus without complication, without long-term current use of insulin (HCC) [E11.9] Endocrinology Comment on above: Type 2 diabetes mellitus without complic ation, without long-term current use of insulin (HCC) [E11.9] Start: 06-06-2024 End: 06-06-2024 Patient encounter procedure 06/06/2024 8:00 AM EDT Appointment Radiology [address] [place] [address] X-ray Radiology Comment on above: X-ray Start: 06-05-2024 End: 06-05-2024 Patient encounter procedure 06/05/2024 11:45 AM EDT Office Visit Pulmonary Medicine [address] [place] [address] Nancy Medley MD [address] [place] [address] 6 month follow up Pulmonary Medicine Comment on above: 6 month follow up Start: 06-04-2024 Hemoglobin A1c measurement HbA1C [facility] Start: 05-20-2024 3 comp foot exam completed DIABETIC FOOT EXAM [facility] Start: 05-20-2024 COVID-19 VACCINE (3 - Pfizer series) COVID-19 VACCINE (3 - Pfizer series) [facility] Comment on above: Postponed from 04/26/2021 (Declined at t his time) Start: 05-20-2024 Diabetic foot examination Diabetic Foot Exam [facility] Start: 05-20-2024 SHINGRIX VACCINE (1 of 2) SHINGRIX VACCINE (1 of 2) [facility] Comment on above: Postponed from 1990 (Declined at t his time) Start: 05-20-2024 Urine microalbumin profile [facility] Comment on above: Postponed from 1959 (Declined at t his time) Start: 05-04-2024 End: 05-04-2025 CBC W Auto Differential panel - Blood COMPLETE BLOOD COUNT AND DIFFERENTIAL Lab Routine Anemia, unspecified type Expected: 05/04/2024, Expires: 05/04/2025 [facility] Work Phone: Comment on above: Expected: 05/04/2024, Expires: Start: 05-04-2024 End: 05-04-2025 Cobalamin (Vitamin B12) [Mass/volume] in Serum or Plasma VITAMIN B12 Lab Routine Anemia, unspecified type Expected: 05/04/2024, Expires: 05/04/2025 [facility] Comment on above: Expected: 05/04/2024, Expires: Start: 05-04-2024 End: 05-04-2025 Ferritin [Mass/volume] in Serum or Plasma FERRITIN Lab Routine Anemia, unspecified type Expected: 05/04/2024, Expires: 05/04/2025 [facility] Comment on above: Expected: 05/04/2024, Expires: Start: 05-04-2024 End: 05-04-2025 Folate [Mass/volume] in Serum or Plasma FOLATE, SERUM Lab Routine Anemia, unspecified type Expected: 05/04/2024, Expires: 05/04/2025 [facility] Comment on above: Expected: 05/04/2024, Expires: Start: 05-04-2024 End: 05-04-2025 Hemoglobin.gastrointestin al.lower [Presence] in Stool by Immunoassay IMMUNOCHEMICAL FECAL OCCULT BLOOD TEST Lab Routine Anemia, unspecified type Expected: 05/04/2024, Expires: 05/04/2025 [facility] Comment on above: Expected: 05/04/2024, Expires: Start: 05-04-2024 End: 05-04-2025 Iron and Iron binding capacity panel - Serum or Plasma IRON AND TIBC Lab Routine Anemia, unspecified type Expected: 05/04/2024, Expires: 05/04/2025 [facility] Comment on above: Expected: 05/04/2024, Expires: Start: 05-01-2024 End: 05-01-2024 Patient encounter procedure 05/01/2024 4:00 PM EDT Office Visit [facility] [address] [place] [address] Henok Martinez MD [address] [place] [address] 4-6 week follow up [facility] Comment on above: 4-6 week follow up Start: 05-01-2024 End: 07-31-2024 Hemoglobin A1c in Blood [facility] Work Phone: Comment on above: Expected: 05/01/2024, Expires: Start: 04-28-2024 End: 04-28-2024 Patient encounter procedure 04/28/2024 1:00 PM EDT Office Visit [facility] Ophthalmology [address] [place] [address] Emma Mcnally, OD [address] [place] [address] 10 month follow up-April or May Ophthalmology Comment on above: 10 month follow up-April or May Start: 04-26-2024 Influenza vaccination Influenza Vaccine (#1) [place] [facility] Comment on above: Postponed from 06/28/2023 (Declined at t his time) Start: 04-09-2024 Glaucoma screening Dilated Retinal Exam [facility] Start: 04-09-2024 Hepatitis C antibody, confirmatory test DILATED RETINAL EXAM [facility] Start: 04-06-2024 End: 04-05-2025 XR Chest PA and Lateral XR CHEST 2V FRONTAL/LAT Radiology Routine Abnormal x-ray Expected: 04/06/2024, Expires: 04/05/2025 [facility] Work Phone: Comment on above: Expected: 04/06/2024, Expires: 5 Start: 03-15-2024 End: 06-14-2024 Basic metabolic 2000 panel - Serum or Plasma BASIC METABOLIC PNL Lab Routine Primary hypertension Expected: 03/15/2024, Expires: 06/14/2024 [facility] Work Phone: Comment on above: Expected: 03/15/2024, Expires: 4 Start: 03-15-2024 End: 06-14-2024 CBC W Auto Differential panel - Blood CBC + DIFF Lab Routine Atrial fibrillation, unspecified type (HCC) Expected: 03/15/2024, Expires: 06/14/2024 [facility] Work Phone: Comment on above: Expected: 03/15/2024, Expires: Start: 03-15-2024 End: 06-14-2024 Hemoglobin A1c in Blood HGB A1C Lab Routine Type 2 diabetes mellitus without complication, without long-term current use of insulin (HCC) Expected: 03/15/2024, Expires: 06/14/2024 [facility] Work Phone: Comment on above: Expected: 03/15/2024, Expires: Start: 03-12-2024 Hemoglobin A1c measurement HbA1C [facility] Start: 03-06-2024 End: 03-06-2024 Patient encounter procedure 03/06/2024 2:00 PM EDT Office Visit [facility] [address] [place], [place] [address] Henok Martinez MD [address] [place], [place] [id number] 3 month f/u [facility] Comment on above: 3 month f/u Start: 03-05-2024 End: 06-04-2024 Basic metabolic 2000 panel - Serum or Plasma BASIC METABOLIC PANEL Lab Routine Hyperkalemia Expected: 03/05/2024, Expires: 06/04/2024 [facility] Work Phone: Comment on above: Expected: 03/05/2024, Expires: Start: 03-05-2024 End: 06-04-2024 CBC W Auto Differential panel - Blood COMPLETE BLOOD COUNT AND DIFFERENTIAL Lab Routine Leukocytosis, unspecified type Expected: 03/05/2024, Expires: 06/04/2024 [facility] Comment on above: Expected: 03/05/2024, Expires: Start: 03-04-2024 End: 03-04-2024 Patient encounter procedure 03/04/2024 2:20 PM EDT Office Visit [facility] [address] [place], [place] [address] Henok Martinez MD [address] [facility] [place] [id number] [facility] 02-27-2024 discharge [facility] [place] Comment on above: [facility] 02-27-2024 discharge Start: 03-04-2024 End: 06-03-2024 Comprehensive metabolic 2000 panel - Serum or Plasma [facility] Comment on above: Expected: 03/04/2024, Expires: Start: 03-04-2024 End: 06-03-2024 Thyrotropin [Units/volume] in Serum or Plasma [facility] Comment on above: Expected: 03/04/2024, Expires: Start: 02-16-2024 Hepatitis C antibody, confirmatory test DILATED RETINAL EXAM [facility] Start: 01-11-2024 Hepatitis B surface antibody level LDL CHOLESTEROL [facility] Start: 12-19-2023 End: 03-19-2024 Basic metabolic 2000 panel - Serum or Plasma BASIC METABOLIC PNL Lab Routine Type 2 diabetes mellitus without complication, without long-term current use of insulin (HCC) Expected: 12/19/2023, Expires: 03/19/2024 [facility] Work Phone: Comment on above: Expected: 12/19/2023, Expires: Start: 12-19-2023 End: 03-19-2024 Hemoglobin A1c in Blood HGB A1C Lab Routine Type 2 diabetes mellitus without complication, without long-term current use of insulin (HCC) Expected: 12/19/2023, Expires: 03/19/2024 [facility] Work Phone: Comment on above: Expected: 12/19/2023, Expires: Start: 12-18-2023 Hemoglobin A1c/Hemoglobin.total in Blood HbA1C [facility] Start: 10-28-2023 Behavioral Health Screening Behavioral Health Screening [facility] Start: 09-05-2023 End: 12-05-2023 ALBUMIN/CREAT RATIO RND UR ALBUMIN/CREAT RATIO RND UR Lab Routine Type 2 diabetes mellitus without complication, without long-term current use of insulin (HCC) Expected: 09/05/2023, Expires: 12/05/2023 [facility] Work Phone: Comment on above: Expected: 09/05/2023, Expires: Start: 09-05-2023 End: 12-05-2023 CBC W Auto Differential panel - Blood CBC + DIFF Lab Routine Primary hypertension 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 Type 2 diabetes mellitus without complication, without long-term current use of insulin (HCC) Expected: 09/05/2023, Expires: 12/05/2023 [facility] Work Phone: Comment on above: Expected: 09/05/2023, Expires: 4 Start: 09-05-2023 End: 12-05-2023 Comprehensive metabolic 2000 panel - Serum or Plasma COMP METABOLIC PANEL Lab Routine Primary hypertension Type 2 diabetes mellitus without complication, without long-term current use of insulin (HCC) Expected: 09/05/2023, Expires: 12/05/2023 [facility] Work Phone: Comment on above: Expected: 09/05/2023, Expires: 4 Start: 09-05-2023 End: 12-05-2023 Hemoglobin A1c in Blood HGB A1C Lab Routine Type 2 diabetes mellitus without complication, without long-term current use of insulin (HCC) Expected: 09/05/2023, Expires: 12/05/2023 [facility] Work Phone: Comment on above: Expected: 09/05/2023, Expires: Start: 09-05-2023 End: 12-05-2023 Lipid 1996 panel - Serum or Plasma LIPID PANEL BASIC Lab Routine Type 2 diabetes mellitus without complication, without long-term current use of insulin (HCC) Expected: 09/05/2023, Expires: 12/05/2023 [facility] Work Phone: Comment on above: Expected: 09/05/2023, Expires: Start: 08-31-2023 Hepatitis B screening URINE ALBUMIN:CREATININE RATIO [facility] Start: 08-31-2023 Hepatitis B surface antibody level LDL CHOLESTEROL [facility] Start: 07-10-2023 Hemoglobin A1c/Hemoglobin.total in Blood HBA1C [facility] Start: 06-28-2023 Covid-19 Vaccine () Covid-19 Vaccine () [facility] Start: 06-28-2023 Influenza vaccination [facility] Start: 04-26-2023 End: 06-26-2023 Hemoglobin A1c in Blood HGB A1C Lab Routine Type 2 diabetes mellitus without complication, without long-term current use of insulin (HCC) Expected: 04/26/2023, Expires: 06/26/2023 [facility] Work Phone: Comment on above: Expected: 04/26/2023, Expires: Start: 04-26-2023 Influenza vaccination INFLUENZA (#1) [facility] Comment on above: Postponed from 06/28/2022 (Declined at t his time) Start: 04-12-2023 Hemoglobin A1c/Hemoglobin.total in Blood HBA1C [facility] Start: 04-01-2023 End: 06-01-2023 Basic metabolic 2000 panel - Serum or Plasma BASIC METABOLIC PNL Lab Routine Primary hypertension Expected: 04/01/2023, Expires: 06/01/2023 [facility] Work Phone: Comment on above: Expected: 04/01/2023, Expires: 3 Start: 04-01-2023 End: 06-01-2023 Hemoglobin A1c in Blood HGB A1C Lab Routine Type 2 diabetes mellitus without complication, without long-term current use of insulin (HCC) Expected: 04/01/2023, Expires: 06/01/2023 [facility] Work Phone: Comment on above: Expected: 04/01/2023, Expires: 3 Start: 03-31-2023 [facility] Start: 03-30-2023 [facility] Start: 02-28-2023 Hemoglobin A1c/Hemoglobin.total in Blood HBA1C [facility] Start: 12-02-2022 End: 02-01-2023 Comprehensive metabolic 2000 panel - Serum or Plasma COMP METABOLIC PANEL Lab Routine Type 2 diabetes mellitus without complication, without long-term current use of insulin (HCC) Expected: 12/02/2022, Expires: 02/01/2023 [facility] Work Phone: Comment on above: Expected: 12/02/2022, Expires: 3 Start: 12-02-2022 End: 02-01-2023 Hemoglobin A1c in Blood HGB A1C Lab Routine Type 2 diabetes mellitus without complication, without long-term current use of insulin (HCC) Expected: 12/02/2022, Expires: 02/01/2023 [facility] Work Phone: Comment on above: Expected: 12/02/2022, Expires: 3 Start: 12-02-2022 End: 02-01-2023 Lipid 1996 panel - Serum or Plasma LIPID PANEL BASIC Lab Routine Type 2 diabetes mellitus without complication, without long-term current use of insulin (HCC) Expected: 12/02/2022, Expires: 02/01/2023 [facility] Work Phone: Comment on above: Expected: 12/02/2022, Expires: 3 Start: 10-28-2022 ADVANCE DIRECTIVE DISCUSSION ADVANCE DIRECTIVE DISCUSSION [facility] Start: 10-28-2022 DEPRESSION ASSESSMENT DEPRESSION ASSESSMENT [facility] Start: 09-25-2022 Hepatitis B screening URINE ALBUMIN:CREATININE RATIO [facility] Start: 09-25-2022 Hepatitis B surface antibody level LDL CHOLESTEROL [facility] Start: 06-28-2022 Influenza vaccination [facility] Start: 04-30-2022 End: 06-30-2022 Hemoglobin A1c/Hemoglobin.total in Blood HGB A1C Lab Routine Type 2 diabetes mellitus without complication, without long-term current use of insulin (HCC) Expected: 04/30/2022, Expires: 06/30/2022 [facility] Work Phone: Comment on above: Expected: 04/30/2022, Expires: 2 Start: 04-27-2022 Hemoglobin A1c/Hemoglobin.total in Blood HBA1C [facility] Start: 01-26-2022 End: 03-28-2022 Hemoglobin A1c/Hemoglobin.total in Blood [facility] Work Phone: Comment on above: Expected: 01/26/2022, Expires: 2 Start: 02-28-2022 Hemoglobin A1c/Hemoglobin.total in Blood HBA1C [facility] Start: 10-28-2021 ADVANCE DIRECTIVE DISCUSSION ADVANCE DIRECTIVE DISCUSSION [facility] Start: 10-28-2021 DEPRESSION ASSESSMENT DEPRESSION ASSESSMENT [facility] Start: 08-01-2021 COVID-19 VACCINE (3 - Booster for Pfizer series) COVID-19 VACCINE (3 - Booster for Pfizer series) [facility] Start: 04-26-2021 COVID-19 VACCINE (3 - Booster for Pfizer series) COVID-19 VACCINE (3 - Booster for Pfizer series) [facility] Start: 2015 RSV Vaccine (1 - 1-dose 75+ series) RSV Vaccine (1 - 1-dose 75+ series) [facility] Start: 2005 BONE DENSITY BONE DENSITY [facility] Start: 2005 PNEUMOVAX AGE 65 AND OVER WITH 5YR LOOKBACK (#1) PNEUMOVAX AGE 65 AND OVER WITH 5YR LOOKBACK (#1) [facility] Start: 05-28-2005 Medicare Annual Wellness Visit Medicare Annual Wellness Visit [facility] Start: 2000 Hepatitis B Vaccine (1 of 3 - Risk 3-dose series) Hepatitis B Vaccine (1 of 3 - Risk 3-dose series) [facility] Start: 2000 RSV Vaccine (1 - 1-dose 60+ series) RSV Vaccine (1 - 1-dose 60+ series) [facility] Start: 1990 SHINGRIX VACCINE (1 of 2) SHINGRIX VACCINE (1 of 2) [facility] Start: 1959 Urine microalbumin profile [facility] Start: 1958 SPIROMETRY SPIROMETRY [facility] Start: 1951 Screening for malignant neoplasm of cervix Cervical Cancer Screening [facility] Start: 1950 3 comp foot exam completed DIABETIC FOOT EXAM [facility] Start: 1950 Hepatitis C antibody, confirmatory test DILATED RETINAL EXAM [facility] Start: 1946 PNEUMOCOCCAL: 65+ (1 - PCV) PNEUMOCOCCAL: 65+ (1 - PCV) [facility] Cancer antigen 19-9 measurement [facility] Catheterization of l eft heart [facility] End: 01-25-2026 CBC W Auto Differential panel - Blood COMPLETE BLOOD COUNT AND DIFFERENTIAL Lab Routine 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) Once per week for 26 Occurrences starting 01/25/2025 until 01/25/2026, 1 completed [facility] Work Phone: Comment on above: Once per week for 26 Occurrences startin g 01/25/2025 until 01/25/2026, 1 completed End: 09-05-2023 COLONOSCOPY DIAGNOSTIC COLONOSCOPY DIAGNOSTIC Endoscopy Routine Change in bowel habits 1 Occurrences starting 09/05/2022 until 09/05/2023 [facility] Work Phone: Comment on above: 1 Occurrences starting 09/05/2022 until 09/05/2023 End: 01-25-2026 Comprehensive metabolic 2000 panel - Serum or Plasma COMPREHENSIVE METABOLIC PANEL Lab Routine 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) Once per week for 26 Occurrences starting 01/25/2025 until 01/25/2026, 1 completed [facility] Comment on above: Once per week for 26 Occurrences startin g 01/25/2025 until 01/25/2026, 1 completed End: 06-24-2026 CT Abdomen and Pelvis W contrast IV CT ABD/PEL W IVCON Radiology Routine 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) Adenocarcinoma of head of pancreas (HCC) 1 Occurrences starting 05/25/2025 until 06/24/2026 [facility] Work Phone: Comment on above: 1 Occurrences starting 05/25/2025 until 06/24/2026 CT Abdomen and Pelvi s W contrast IV CT ABD/PEL W IVCON Radiology Routine 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) Adenocarcinoma of head of pancreas (HCC) 05/26/2025 3:04 PM EDT [facility] Work Phone: End: 06-24-2026 CT Chest W contrast IV CT CHEST W IVCON Radiology Routine 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) Adenocarcinoma of head of pancreas (HCC) 1 Occurrences starting 05/25/2025 until 06/24/2026 [facility] Comment on above: 1 Occurrences starting 05/25/2025 until 06/24/2026 CT Chest W contrast IV CT CHEST W IVCON Radiology Routine 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) Adenocarcinoma of head of pancreas (HCC) 05/26/2025 3:04 PM EDT [facility] End: 03-09-2024 Ct pelvis w/contrast material CT PELVIS W IVCON Radiology Routine Pelvic and perineal pain 1 Occurrences starting 02/08/2023 until 03/09/2024 [facility] Work Phone: Comment on above: 1 Occurrences starting 02/08/2023 until 03/09/2024 End: 12-16-2023 Ct thorax w/o contrast material CT CHEST WO IVCON Radiology Routine Chronic cough Abnormal chest x-ray 1 Occurrences starting 11/16/2022 until 12/16/2023 [facility] Work Phone: Comment on above: 1 Occurrences starting 11/16/2022 until 12/16/2023 End: 04-06-2026 ERCP ERCP Endoscopy Routine RUQ pain 1 Occurrences starting 04/06/2025 until 04/06/2026 [facility] Work Phone: Comment on above: 1 Occurrences starting 04/06/2025 until 04/06/2026 Insj tunneled ctr va d w/subq port age 5 yr/> INSERTION PORT VENOUS ACCESS ADULT 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) [facility] End: 10-31-2023 LUNG DIFFUSION CAPACITY (DLCO) LUNG DIFFUSION CAPACITY (DLCO) PFT Routine Mild intermittent asthma without complication 1 Occurrences starting 10/01/2022 until 10/31/2023 [facility] Work Phone: Comment on above: 1 Occurrences starting 10/01/2022 until 10/31/2023 End: 10-31-2023 LUNG VOLUMES LUNG VOLUMES PFT Routine Mild intermittent asthma without complication 1 Occurrences starting 10/01/2022 until 10/31/2023 [facility] Work Phone: Comment on above: 1 Occurrences starting 10/01/2022 until 10/31/2023 Magnesium measurement [facility] Patient Education [facility] Work Phone: Patient referral [facility] Work Phone: End: 10-31-2023 SPIROMETRY - BASELINE AND POST DILATOR SPIROMETRY - BASELINE AND POST DILATOR PFT Routine Mild intermittent asthma without complication 1 Occurrences starting 10/01/2022 until 10/31/2023 [facility] Work Phone: Comment on above: 1 Occurrences starting 10/01/2022 until 10/31/2023 Stroke after atrial fibrillation 5 year risk [#] Umesh 2002 IR PORTOCATH PLACEMENT Radiology Routine 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) Ordered: 01/28/2025 [facility] Work Phone: Comment on above: Ordered: 01/28/2025 End: 12-04-2025 US Abdomen RUQ US ABD RIGHT UPPER QUADRANT Radiology Routine Epigastric pain 1 Occurrences starting 11/04/2024 until 12/04/2025 [facility] Comment on above: 1 Occurrences starting 11/04/2024 until 12/04/2025 US Abdomen RUQ US ABD RIGHT UPP ER QUADRANT Radiology Routine Epigastric pain Elevated lipase 11/12/2024 2:54 PM EST [facility] Work Phone: [facility] End: 04-03-2025 XR Chest PA and Lateral XR CHEST 2V FRONTAL/LAT Radiology Routine Bronchitis 1 Occurrences starting 03/04/2024 until 04/03/2025 [facility] Work Phone: Comment on above: 1 Occurrences starting 03/04/2024 until 04/03/2025 XR Chest PA and Lateral XR CHEST 2V FRONTAL/LAT Radiology Routine Bronchitis 03/04/2024 3:46 PM EDT [facility] End: 12-04-2025 XR Chest PA and Lateral XR CHEST 2V FRONTAL/LAT Radiology Routine Hemoptysis 1 Occurrences starting 11/04/2024 until 12/04/2025 [facility] Comment on above: 1 Occurrences starting 11/04/2024 until 12/04/2025 End: 07-05-2025 XR Ribs - right Views and Chest PA XR RIBS/CHEST 3V AP RIB/OBLS/CXR RIGHT Radiology Routine Rib pain on right side 1 Occurrences starting 06/05/2024 until 07/05/2025 [facility] Work Phone: Comment on above: 1 Occurrences starting 06/05/2024 until 07/05/2025 [facility] c [facility] c [facility] Immunizations Immunization Date Immunization Notes Care Provider Fa cili 03-01-2021 COVID-19 vaccine, ag e 12+ yr (PFIZER-BIONTECH - PURPLE TOP) Henok Martinez MD Work Phone: [facility] 02-08-2021 COVID-19 vaccine, ag e 12+ yr (PFIZER-BIONTECH - PURPLE TOP) Henok Martinez MD Work Phone: [facility] Payers Date Payer Category Payer Medicare [id number] 2024 Self-pay [id number] 2023 Medicaid [id number] 2023 Self-pay [id number] 2021 Medicaid MEDICAID [facility] MEDICAID [id number] 2021-Present [phone] [address] [place] [address] Medicaid [id number] 2021 Medicaid [id number] 2005 Medicare MEDICARE MEDICAR E A AND B [id number] 2005-Present [phone] [address] [address] [place] [address] Medicare [id number] 2005 Medicare [id number] 2005 Medicare [id number] Unknown [id number] Unknown [id number] Unknown [id number] Unknown [id number] Unknown [id number] Unknown [id number] Unknown [id number] Unknown [id number] Unknown [id number] Unknown [id number] Unknown [id number] Unknown [id number] Unknown [id number] Social History Date Type Detail Facility Start: 09-14-2021 End: 05-30-2025 Tobacco smoking status NHIS Ex-smoker [facility] Start: 09-14-2021 End: 11-16-2022 Tobacco use and exposure Smokeless tobacco non-user [facility] Start: 01-26-2022 End: 05-25-2025 Alcohol intake Ex-drinker (finding) [facility] Start: 1940 Sex Assigned At Not on file [facility] Start: 01-16-2022 End: 10-01-2022 Exposure to SARS-CoV-2 (event) Not sure [facility] History of tobacco use Current smoker [facility] Start: 11-16-2022 Tobacco Comment Light smoker f or 7 years in early adulthood [facility] Start: 03-07-2023 End: 02-25-2024 Tobacco smoking status NHIS Unknown if ever smoked [facility] Start: 1940 Sex Assigned At Female [facility] Start: 04-09-2023 End: 06-25-2023 History of Social function [facility] Work Phone: Start: 04-09-2023 End: 06-25-2023 Tobacco use panel [facility] Work Phone: Adult Depression Screening Assessment 0 [facility] Work Phone: Has the [employer], or [employer] threatened to shut off services in your home in past 12Mo No [facility] Work Phone: (I/We) worried wheth er (my/our) food would run out before (I/we) got money to buy more. Never true [facility] Start: 01-10-2025 End: 01-14-2025 Sex Female (finding) [facility] NEGATED: Highlighted row Not [facility] Medical Equipment Procedure Code Equipment Code Equipment Origin al Text Equipment Identifier Dates Stent Advanix Na viflex 10fr [place] Thin Wall Plastic 7cm Biliary - [id number] Start: 01-15-2025 [id number] Start: 01-23-2025 End: 02-22-2025 Use with blood g lucose test 2 times daily. Insulin Dep? Yes [id number] Start: 01-23-2025 Test 4 times zenia ly, Insulin Dep? Yes dm 2 uncontrolled. [id number] Start: 01-29-2025 Test Four times a day. Insulin Dep? Yes uncontrolled dm [id number] Start: 01-29-2025 1 each two times a day. [id number] Start: 03-18-2025 End: 04-17-2025 Goals Date Patient Goal Desired Activity /State Functional Status Date Assessment Result Facility 02-14-2025 Are you deaf, or do you have serious difficulty hearing No 02/14/2025 2:14 PM Gloria Nolasco RN No [facility] 02-14-2025 Are you blind, or do you have serious difficulty seeing, even when wearing glasses No 02/14/2025 2:14 PM Gloria Nolasco RN No [facility] 02-14-2025 Do you have serious difficulty walking or climbing stairs Yes 02/14/2025 2:14 PM Gloria Nolasco RN Yes [facility] 02-14-2025 Do you have difficul ty dressing or bathing Yes 02/14/2025 2:14 PM Gloria Nolasco RN Yes [facility] 02-14-2025 Because of a physica l, mental, or emotional condition, do you have difficulty doing errands alone such as visiting a physician's office or shopping Yes 02/14/2025 2:14 PM Gloria Nolasco RN Yes [facility] 01-23-2025 Are you deaf, or do you have serious difficulty hearing No 01/23/2025 2:02 PM Nadeen Hoang RN No [facility] 01-23-2025 Are you blind, or do you have serious difficulty seeing, even when wearing glasses No 01/23/2025 2:02 PM Nadeen Hoang RN No [facility] 01-23-2025 Do you have serious difficulty walking or climbing stairs No 01/23/2025 2:02 PM Nadeen Hoang RN No [facility] 01-23-2025 Do you have difficul ty dressing or bathing No 01/23/2025 2:02 PM Nadeen Hoang RN No [facility] 01-23-2025 Because of a physica l, mental, or emotional condition, do you have difficulty doing errands alone such as visiting a physician's office or shopping No 01/23/2025 2:02 PM Nadeen Hoang RN No [facility] 01-14-2025 Functional status Ambulates;Up ad tia [facility] Work Phone: Mental Status Date Assessment Result Facility 05-30-2025 Cognitive function Level Of Cons ciousness Awake;Alert;Appropriate;Fol lows Commands [facility] Work Phone: 02-14-2025 Because of a physica l, mental, or emotional condition, do you have serious difficulty concentrating, remembering, or making decisions No 02/14/2025 2:14 PM EDT Gloria Last RN No [facility] 01-23-2025 Because of a physica l, mental, or emotional condition, do you have serious difficulty concentrating, remembering, or making decisions No 01/23/2025 2:02 PM EDT Nadeen Decker, MAGNUS No [facility] 01-14-2025 Cognitive function Voice/Name [facility] Work Phone: 01-09-2025 Cognitive function Level Of Cons ciousness Awake;Alert;Appropriate;Fol lows Commands [facility] Work Phone: 02-25-2024 Cognitive function Level Of Cons ciousness Awake;Alert;Appropriate;Fol lows Commands [facility] Work Phone: 04-22-2023 Cognitive function Level Of Cons ciousness Awake;Alert;Appropriate [facility] Work Phone: 04-05-2023 Cognitive function Level Of Cons ciousness Awake;Alert;Appropriate;Fol lows Commands [facility] Work Phone: 03-30-2023 Cognitive function Level Of Cons ciousness Awake;Alert;Appropriate;Fol lows Commands;Responds to vocal stimuli [facility] Work Phone: Clinical Notes 03-28-2021 to 05-31-2025 Note Date & Type Note Facility 05-31-2025 Discharge summary [facility] 05-31-2025 Radiology Diagnostic study note [facility] [address] [place], [place] [address] CT Chest, Abd, Pel w/Contrast MR#: [id number] Acct: [id number] Name: NICKOLASTELMA BRIGHT Rep #: [id number] : [id number] F 84 From: Sumaya Hinton MD PCP: Dr. Henok Martinez MD Status: REG E R Study:CT Chest, Abd, Pel w/Contrast Date of E xam: 05/30/25 Exam# [id number] Ordering Dr: Yeyo Valentine DO PROCEDURE: CT CHEST, ABD, PEL W/CONTRAST 05/30/2025 REASON FOR EXAM: FEVER, HX PANCREATIC CANCER TECHNIQUE: Chest, abdomen and pelvis CT with intravenous contrast. Coronal and Sagittal reconstruction series were provided. One or more dose reduction techniques were used (e.g., Automated exposure control, adjustment of the mA and/or kV according to patient size, use of iterative reconstruction technique. PATIENT PREPARATION: Per protocol ORAL CONTRAST TYPE: None. AMOUNT: mL CONTRAST: Isovue 370 VOLUME: 95mL Gauge IV RADIATION DOSE SUMMARY: CTDlvol: 43 mGy DLP: 1114 mGycm COMPARISON: Abdominopelvic CT 01/09/2025 FINDINGS: There is left axillary adenopathy, nonspecific. Advise correlation. Unremarkable base of neck and right axilla. Thoracic spine scoliosis and degeneration. Normal esophagus. Normal heart size. No acute vascular injury. No acute chest wall findings. Central airways are patent. Mild lower lobe bronchial wall thickening. Under aerated lungs. No contusion, pneumothorax, or pleural effusion. Unremarkable liver and gallbladder. Stable 5 mm liver hypodensity, series 3, image 26, favoring benign etiology. There is a biliary stent in good position. CBD is dilated up to 2 cm cross-section. Thereis pancreatic atrophy. There is a history of a pancreatic head mass which is not definitely seen, possibly indicating response to treatment. There is stable periportal adenopathy, nonspecific. Unremarkable spleen, adrenal glands, kidneys. Mild hydronephrosis possibly representing reflux. Well distended bladder. Status post hysterectomy. No retroperitoneal or pelvic adenopathy. No free air. Nonobstructed bowel. Status post appendectomy. No acute large bowel findings. Lumbar spine scoliosis and degeneration. CT/CT Chest, Abd, Pel w/Contrast IMPRESSION: Left axillary adenopathy, nonspecific. Possibly inflammatory in etiology. No acute chest injury is noted. Treated pancreatic head tumor is not well seen and may be decreased in size indicating response to treatment. Biliary stent in good position. No abdominopelvic injury noted. Reading Location: [place] [address] CC: Dr. Yyeo Valentine DO; Dr. Henok Martinez MD ~ Seam Steamer: Signed [facility] 05-30-2025 Discharge summary Note Date/Time May 31, 2025 3:41am [facility] Medical Records Department [address] [place] [address] Emergency Department Summary 05/30/25 MR#: [id number] Acct: [id number] Name: TELMA TINEO Rep #:[id number] 84 From: Yeyo Palencia PCP: Dr. Henok Martinez MD Status:REG E R Location: ED HPI History of Present Illness Chief Complaint: General Illness Informant: patient and family Narrative Narrative: Here with son for evaluation of feeling sick since yesterday. Reports feeling weak having nausea fever today. No cough. Urine is darker. No burning. 3 bowel moods today nonbloody none loose this is normal for her. Mild abdominal discomfort. No chest pains. Return from [place] 8 days ago was feeling well. History of A-fib on Eliquis. History of TIA coronary disease with stent in the past. She is on baby aspirin. Denies any sick contacts. Diabetic, ran out of her insulin 15 hours ago she is on 10 units of 70/30. Stent placed in her pancreatic duct in the past history of pancreatic cancer. Reports mild myalgias. [facility] Medical History Pancreatic mass History of uterine cancer Overweight (BMI 25.0-29.9) Type 2 diabetes mellitus with hyperglycemia Transaminitis Hyperbilirubinemia Jaundice Elevated lipase Mass of head of pancreas Atrial fibrillation Neck pain, bilateral History of TIA (transient ischemic attack) Stroke/cerebrovascular accident Essential hypertension Complaint of melena Transient ischemic attack (03/2021) History of Lundberg's palsy GERD (gastroesophageal reflux disease) History of cancer History of blood transfusion Right atrial mass Former smoker Asthma Diabetes mellitus, type 2 Home Medications ?Medication ?Instructions ?Recorded ?Last Taken ?Type pantoprazole 40 mg tablet,delayed 40 mg PO DAILY gerd #90 tabs 08/28/21 Unknown Rx release atorvastatin 20 mg tablet 20 mg PO QHS 03/07/23 Unknow n History losartan 100 mg tablet 100 mg PO DAILY 03/07/23 Unk nown History metoprolol tartrate 50 mg tablet 50 mg PO BID 11/21/23 Unknown History apixaban 5 mg tablet 5 mg PO BID #180 tabs Unknown Rx amlodipine 10 mg tablet 10 mg PO DAILY #90 tabs 10/28 02/19 Unknown Rx Allergy/AdvReac Type Severity Reaction Status Date / Time Penicillins Allergy Severe Anaphylaxis Verified 05/30/25 21:31 tetracycline Allergy Severe anaphylaxis Verified 05/30/25 21:31 tramadol (From Ultram) AdvReac Severe syncope Verified 05/30/25 21:31 Family History Mother Pancreatic cancer CAD (coronary [...] use ROS ROS ED Constitutional Constitutional ED: Reports fever(s); Denies chills or sweats ENT ENT ED: Denies sore throat Cardiovascular Cardiovascular: Denies chest pain, leg edema, palpitations or racing heartbeat Respiratory/Chest Respiratory/Chest: Denies cough, dyspnea or dyspnea on exertion Gastrointestinal Gastrointestinal: Reports nausea; Denies abdominal pain, diarrhea or vomiting Genitourinary Genitourinary ED: Reports other Details: Darker urine ; Denies dysuria, hematuria or urinary frequency Musculoskeletal Musculoskeletal: Reports myalgias; Denies back pain, extremity pain or neck pain Integumentary Denies rash or wounds Neurologic Neurologic: Reports weakness; Denies headache(s) or paresthesias EXAM Physical Exam Const Vital Signs: 05/30/25 21:27 05/30/25 22:36 05/30/25 23:00 Temperature 100.1 F H 100.0 F H 99.4 F H Temperature Source Oral Oral Oral Pulse Rate 102 H 101 H 87 Respiratory Rate 18 20 H 20 H Blood Pressure 175/84 H 156/66 H 157/78 H Blood Pressure Mean 114 96 104 Pulse Ox 98 97 98 Oxygen Delivery Method Room Air Room Air Room Air 05/30/25 23:27 05/31/25 00:00 05/31/25 01:00 Temperature 99.6 F H 99.4 F H Temperature Source Temporal Oral Pulse Rate 88 86 83 Respiratory Rate 21 H 18 16 Blood Pressure 174/96 H 115/64 113/54 L Blood Pressure Mean 122 81 73 Pulse Ox 96 94 Oxygen Delivery Method Room Air Room Air 05/31/25 02:00 05/31/25 03:00 05/31/25 03:00 Temperature 98.9 F 98.7 F Temperature Source Axillary Temporal Pulse Rate 74 76 74 Respiratory Rate 16 15 Blood Pressure 132/55 H 120/58 L Blood Pressure Mean 80 78 Pulse Ox 96 100 Oxygen Delivery Method Room Air Room Air 05/31/25 03:19 Temperature 98.7 F Temperature Source Pulse Rate 78 Respiratory Rate 15 Blood Pressure 120/58 L Blood Pressure Mean 78 Pulse Ox 100 Oxygen Delivery Method Positive well nourished and well developed Constitutional Narrative: Nontoxic General Appearance ED: well developed and NAD HEENT HEENT Narrative: Mild dry mucosal membrane normocephalic and atraumatic Eyes Eyes Narrative: mild scleral icterus Neck full ROM Chest Wall Chest: Negative for tenderness Resp normal respiratory effort and normal air movement Effort and Inspection: symmetric chest movement; Negative for respiratory distress Cardio regular rate and no murmurs Rhythm: abnormal rhythm Peripheral Pulses: pulses 2+ throughout GI normal to inspection, nondistended, normoactive bowel sounds and non-tender GI Narrative: Negative Moreira's or McBurney's tenderness. Palpation: Negative for guarding or rebound tenderness present Extremity normal to inspection General Extremety ED: Negative for edema or tenderness General Extremity: Negative for edema Neuro oriented x3 and no sensory deficits noted Sensorium / Orientation: awake and alert Skin no rashes or lesions noted and no wounds MDM MDM MDM Narrative Medical decision making narrative: Interventions / MDM: Differential diagnosis: Fever, cholangitis, pancreatic cancer, history of biliary stent, dehydration. Diagnosis considered but do not suspect: UTI however urine negative. My EKG interpretation: Rate controlled A-fib 91, no ST changes, T wave versions lateral leads aVL. Nonspecific. Imaging independently reviewed and interpreted by myself: CT chest abdomen pelvis with IV contrast: Nonspecific left axillary lymph adenopathy. Nonvisualized pancreatic mass seen previously. Biliary stent in place. No other acute process. External documents reviewed: N/A Test considered but not ordered:N/A ED course: Patient temp 100.1, dry mucosal membranes. Reporting viral-like symptoms without cough. Labs with liver enzymes ordered. Urine ordered. Viralswab. IV fluids given along with antiemetics and Tylenol with myalgias. COVID flu RSV also sent. 2329 urine negative had a white count of 13.9 she has transaminitis with a bilirubin of 4.8. Reviewing the records in December bilirubin as high as 10, she was transferred to [facility] As ERCP was attempted and unsuccessful. This was a new diagnosis in December I did discuss with patient son and her daughter on the phone. Patient stopped treatment due to side effects. There is reason why she went to [place] to see family. I discussed palliative and hospice however patient and family states she does not like people in the home. Reported she wants to in her home with family. Discussed with them if this is the patient's wishes we should honor her wishes however we should have DNR comfort care papers. I discussed difference tween comfort care Comfort Carearrest. She was still like treatment. Therefore we will make her DNR Comfort Care arrest. They agree with his plan. They agree with reimaging this evening for evaluation secondary to her fevers. Chest abdomen pelvis IV contrast for evaluation. Will start antibiotics for concerning cholangitis with her history. Anaphylaxis to penicillin and tetracycline. IV Levaquin and Flagyl ordered. Blood pressure stable. I discussed with her care at [facility] For transfer however patient states she would like to go home. Discussed at this time we will obtain blood cultures image studies with giving her antibiotics and will reevaluate her decision. 0310: CT results biliary stent in place. Per radiology no visualization of the pancreatic mass that was seen previously. Vitals are stable. Fever improved with Tylenol. Antibiotics were given. Patient does not want aggressive treatment for her history of cancer. However concerns for cholangitis with her fever and her cancer history with a biliary stent. Patient not opposed to admission here for antibiotic treatment. I will discuss with hospitalist. I spoke with Dr. Chisholm for admission. Re-evaluation: stable Disposition discussed with patient/family/significant other: Patient and family Case discussed with consulting clinician: Hospitalist This note was generated with biNu dictation software. It may contain incorrectwords, spelling, and punctuation that were not noted in checking the note beforesigning. Lab Data Attestation: I reviewed the patient's lab results. Labs: Laboratory Results - last 24 hr 05/30/25 05/30/25 21:55 22:38 WBC 13.9 H RBC 4.13 L Hgb 11.1 L Hct 33.8 L MCV 81.8 MCH 26.9 L MCHC 32.8 RDW Std Deviation 44.9 H RDW Coeff of [place] 14.9 H Plt Count 185 MPV 12.7 H Immature Gran % (Auto) 0.500 Neut % (Auto) 84.7 H Lymph % (Auto) 3.3 L [place] % (Auto) 11.4 H Eos % (Auto) 0.0 Baso % (Auto) 0.1 Absolute Neuts (auto) 11.7 H Absolute Lymphs (auto) 0.46 L Nucleated RBC % 0 Differential Comment SCANNED Sodium 131 L Potassium 3.1 L Chloride 97 L Carbon Dioxide 20.0 L Anion Gap 14 BUN 9 Creatinine 0.74 Estim Creat Clear Calc 45.50 L Est GFR (MDRD) Non-Af 80 BUN/Creatinine Ratio 12.0 Glucose 257 H Lactic Acid 1.6 Calcium 9.1 Total Bilirubin 4.82 H AST 135 H ALT 195 H Alkaline Phosphatase 466 H Total Protein 7.3 Albumin 3.9 Globulin 3.5 Albumin/Globulin Ratio 1.1 Lipase 49 Urine Color Yellow Urine Clarity Clear Urine pH 7.0 Ur Specific [place] 1.005 Urine Protein 30 H Urine Glucose (UA) 1000 H Urine Ketones Negative Urine Occult Blood 25 H Urine Nitrite Negative Urine Bilirubin Negative Urine Urobilinogen Normal Ur Leukocyte Esterase Negative Urine RBC 0 SEEN Urine WBC 0 SEEN Ur Squamous Epith Cells 5-10 SEEN Urine Bacteria 2+ Urine Mucus 0 SEEN Radiography Diagnostic Testing: Clinical Impression(s) from Imaging Studies Chest/Abdomen/Pelvis CT 05/30/25 23:36 IMPRESSION: Left axillary adenopathy, nonspecific. Possibly inflammatory in etiology. No acute chest injury is noted. Treated pancreatic head tumor is not well seen and may be decreased in size indicating response to treatment. Biliary stent in good position. No abdominopelvic injury noted. Reading Location: [place] [address] Discharge Plan Triage Chief Complaint: General Illness ED Provider: Yeyo Valentine Dx/Rx/DC Orders Clinical Impression: Fever, Cholangiolitis, History of biliary duct stent placement, History of pancreatic cancer, DNR no code (do not resuscitate) Prescriptions: No Action pantoprazole 40 mg tablet,delayed release (DR/EC) 40 mg PO DAILY Qty: 90 3RF metoprolol tartrate 50 mg tablet 50 mg PO BID losartan 100 mg tablet 100 mg PO DAILY atorvastatin 20 mg tablet 20 mg PO QHS Patient Comments: TAKE 1 TABLET BY MOUTH ONCE DAILY apixaban 5 mg tablet 5 mg PO BID Qty: 180 3RF amlodipine 10 mg tablet 10 mg PO DAILY Qty: 90 3RF Primary Care Provider: Henok Martinez Referrals: Henok Martinez MD [Primary Care Provider] - Print Language: [place] Disposition Disposition: Acute Care Hospital [facility] What to do if you have Problems For any increased pain, shortness of breath, bleeding, nausea or vomiting, chestpain, or any unexpected problems, contact your Primary Care Provider. Call [facility] ([phone]) or report to the closest Emergency Room. Call 911 if necessary. 05/31/25 0341 <Electronically signed by Yeyo Palencia> Cosigner Signature (if applicable): CC: Dr. Henok Martinez MD ~ Signed [facility] Work Phone: 1(332) 909-925207-30-2025 History of Present illness Narrative* Bobo Parham, RT(R) - 05/26/2025 2:20 PM EDT Radiology Service Progress Note DATE OF [...] No status:NO. PATIENT RELEVANT IMPLANT DATA REVIEWED: Yes PATIENT PRESENTS WITH AN IMPLANTABLE OR ATTACHED REPORT CLERK: No ALLERGIES: Reviewed and unchanged CONTRAST ALLERGY: [...] CT; Exam(s) Completed: Chest Abdomen Pelvis SIGNATURE: PATTIE Christianson) PATIENT NAME: Telma Tineo DATE: May 26, 2025 TIME: 3:36 PM [facility] NoteHNO ID: [id number] Author: BOBO PARHAM RT(R) Service: ? Author Type: Labor Service Representative Type: Progress Notes Filed: 05/26/2025 15:37 Note [...] PATIENT PRESENTS WITH AN IMPLANTABLE OR ATTACHED REPORT CLERK: No ALLERGIES: Reviewed and unchanged CONTRAST ALLERGY: [...] Tineo DATE: May 26, 2025 TIME: 3:36 [facility]07-30-2025 NoteHNO ID: [id number] Author: SKYLER BHATIA MA Service: ? Author Type: Integration Lead Type: Progress Notes Filed: 05/26/2025 09:04 Note Text: POPULATION HEALTH NAVIGATION OUTREACH Action/FYI [employer] MESSAGE SENT Topic Due (Y or N) [...] Skyler Bhatia MA May 26, 2025 7:56 [facility]07-30-2025 History of Present illness Narrative* Skyler Bhatia MA - 05/26/2025 7:55 AM EDT POPULATION HEALTH NAVIGATION OUTREACH Action/FYI LVM MYCHART MESSAGE SENT Topic Due (Y or N) Comments Medicare Wellness y PCP Follow up Colorectal Cancer Screening Controlling Blood Pressure A1C y HCC Flu Vaccine Care Everywhere Reviewed MyChart Activation Updated Appointment Note Reason for Outreach Care Gap/HCC or Scheduling Wellness Visits Care Gaps due: Medicare Annual Wellness Visit Patient Contacted: Unable or unnecessary to reach patient: Left message Red Advertisinghart message sent Navigation Signature: Skyler Bhatia MA May 26, 2025 7:56 AM documented in this encounterTwin [facility]07-30-[facility]25 NotePatient Outreach (NETNAV) TELMA TINEO ([id number]) 1940 F Date Time Provider Department 05/26/25 SKYLER BHATIA NETNAV During your visit today, we recorded the following information about you: Skyler Bhatia MA 05/26/2025 9:04 AM Signed POPULATION HEALTH NAVIGATION OUTREACH Action/FYI LVM MYCHART MESSAGE SENT Topic Due (Y or N) Comments Medicare Wellness y PCP Follow up Colorectal Cancer Screening Controlling Blood Pressure A1C y HCC Flu Vaccine Care Everywhere Reviewed MyChart Activation Updated Appointment Note Reason for Outreach Care Gap/HCC or Scheduling Wellness Visits Care Gaps due: Medicare Annual Wellness Visit Patient Contacted: Unable or unnecessary to reach patient: Left message [email or web address] message sent Navigation Signature: Skyler Bhatia MA May 26, 2025 7:56 AM Allergies As of Date: 05/26/2025 Noted Allergy Reaction PENICILLINS 09/14/2021 10 - Anaphylaxis TETRACYCLINE 09/14/2021 2 - Rash TRAMADOL 07/01/2024 5 - Intolerance Comments: Trembling Date Reviewed: 05/25/2025 Reviewed by: Carl Ortiz MA - Fully Assessed Reason for Visit: Population Health Navigation Outreach [3910] Cmt: ACO WORKBECINDI MENDOZA PCSA Prescriptions as of 05/26/2025 - iv [...] once daily. - Blood Pressure Test Kit-Large ([employer] ARM BP MONITOR) 1 Each once daily. [...] 05/20/2023 Impaired cognition [R41.89] 05/20/2023 Diagnosed: 05/20/2023 detention current use of anticoagulant therapy *05/20/2023 Diagnosed: 05/20/2023 Neck pain [M54.2] 05/20/2023 05/20/2023 Diagnosed: 05/20/2023 Cerebrovascular acciden (more content not included)...[facility] 05-25-2025 Telephone encounter Note* Telephone Encounter - Fatoumata Glynn - 05/25/2025 4:00 PM EDT Returned pt daughter call, who was returning my call from earlier today. [facility]07-29-[facility] Miscellaneous Notes* Telephone Encounter - Fatoumata Glynn - 05/25/2025 4:00 PM EDT Returned pt daughter call, who was returning my call from earlier today. * Telephone Encounter - Fatoumata Glynn - 05/25/2025 1:16 PM EDT Emilia Diaz, I am seeing this patient [...] but she cancelled because she was in [place]. LM to call me back. documented in this [facility]07-29-[facility]25 Telephone encounter Note * Telephone Encounter - Fatoumata Glynn - 05/25/2025 1:16 PM EDT Emilia Diaz, I am seeing this patient [...] but she cancelled because she was in [place]. LM to call me back. [facility]07-29-2025 NoteHNO ID: [id number] Author: JUAN MIGUEL YUSUF MD Service: ? [...] presented with painless jaundice, admitted initially at [facility], transferred for further work up at [facility]. Saw hepatobiliary surgery there, noted pancreatic mass. [...] sugar at least four (more content not included)...[facility]07-29-2025 History of Present illness Narrative* Juan Miguel Yusuf MD - 05/25/2025 12:12 PM EDT (Elements copied from my note dated February 22, 2025, have been reviewed and updated where appropriate, and all reflect current assessment and medical decision making from today's encounter, May 25, 2025) HISTORY OF PRESENT ILLNESS: Telma Tineo is a 84 year old female presented with painless jaundice, admitted initially at [facility], transferred for further work up at [facility]. Saw hepatobiliary surgery there, noted pancreatic mass. She underwent CBD stenting, and biopsy of mass at headof pancreas. Dx adenocarcinoma. Staging otherwise negative. Per [...] times a day before meals at 6 amand 4 pm. glucose 4 gram chewable tablet [...] (4) times daily. Blood Pressure Test Kit-Large ([employer] ARM BP MONITOR) 1 Each once daily. [...] which included preparing to see the patient, [id number] patient care, completing clinical documentation, obtaining and/or reviewing separately obtained history, counseling and educating the patient/family/caregiver, ordering medications, nicko ts, or procedures, communicating with other HCPs (not separately reported), independently interpreting results (not separately reported), communicating results to the patient/family/caregiver, and care coordination (not separately reported). Electronically Signed: Juan Miguel Yusuf MD May 25, 2025 documented in this encounterTwin [facility]07-24-2025 Telephone encounter Note * Telephone Encounter - Nasim Fragoso - 05/20/2025 2:55 PM EDT Spoke w pt daughter and she is scheduled for 05/[address] Yusuf. Will schedule w Dr. Stoner when sheis here. Nasim Fragoso [facility]07-24-[facility]25 Miscellaneous Notes* Telephone Encounter - Nasim Fragoso - 05/20/2025 2:55 PM EDT Spoke w pt daughter and she is scheduled for 05/[address] Yusuf. Will schedule w Dr. Stoner when sheis here. Nasim Fragoso * Telephone Encounter - Maria Isabel Silverio RN - 05/13/2025 2:28 PM EDT Call Sujata Aguirre at any time to schedule appointments 05/24 or after. Sujata, muriel, calls and states that her Mom, Telma will be back in country on 05/23/25 and wouldlike for her to be rescheduled with Dr. Yusuf and Dr. Stoner that they cancelled so she could go out of country to visit family. OK with anytime 05/24/25 or after. She also needs to reschedule with Dr. Diaz in at [place]? Please call Sujata Aguirre to schedule. Elaina Silverio RN documented in this encounterTwin City [facility]07-17-2025 Telephone encounter Note * Telephone Encounter - Maria Isabel Silverio RN - 05/13/2025 2:28 PM EDT Call Sujata Aguirre at any time to schedule appointments 05/24 or after. Sujata, daughter, calls and states that her Mom, Telma will be back in country on 05/23/25 and wouldlike for her to be rescheduled with Dr. Yusuf and Dr. Stoner that they cancelled so she could go out of country to visit family. OK with anytime 05/24/25 or after. She also needs to reschedule with Dr. Diaz in GI at [place]? Please call Sujata or Timothy to schedule. Elaina Silverio RN [facility] Work Phone: [phone]) 489-199506-26-2025 Telephone encounter Note* Telephone Encounter - Daina Ríos RN - 04/22/2025 7:56 PM EDT Removed Lipitor as it has been refilled [...] Ríos RN April 22, 2025 7:57 PM [facility] Miscellaneous Notes* Telephone Encounter - Daina Ríos RN - 04/22/2025 7:56 PM EDT Removed Lipitor as it has been refilled [...] 22, 2025 7:57 PM documented in this encounterTwin City Hospital06-23-2025 Telephone encounter Note * Telephone Encounter - Virginia Reina APRN.CNP - 04/19/2025 5:58 PM EDT The following approved medication requests have been transmitted electronically. Requested Prescriptions Pending Prescriptions Disp Refills sucralfate (CARAFATE) 1 gram tablet 120 tablet 1 Sig: Take 1 tablet by mouth four times daily. Virginia Reina APRN.CNP [facility]06-23-2025 Miscellaneous Notes* Telephone Encounter - Virginia Reina APRN.CNP - 04/19/2025 5:58 PM EDT The following approved medication requests have been transmitted electronically. Requested Prescriptions Pending Prescriptions Disp Refills sucralfate (CARAFATE) 1 gram tablet 120 tablet 1 Sig: Take 1 tablet by mouth four times daily. Virginia Reina APRN.CNP * Telephone Encounter - Jose Ortiz LPN - 04/19/2025 5:37 PM EDT Prescription Refill Information The patient has [...] prescription for Tolu sensors was sent to [facility] pharmacy on 04/12/25. Pt is not due for refill. Jose Ortiz LPN April 19, 2025 5:39 PM documented in this encounterTwin City Hospital06-23-2025 Telephone encounter Note * Telephone Encounter - Jose Ortiz LPN - 04/19/2025 5:37 PM EDT Prescription Refill Information The patient has [...] prescription for Tolu sensors was sent to [facility] pharmacy on 04/12/25. Pt is not due for refill. Jose Ortiz LPN April 19, 2025 5:39 PM [facility]06-[facility] Telephone encounter Note* Telephone Encounter - Johnna Medina LPN - 04/12/2025 2:54 PM EDT Son reports pt is still in [place] and is staying longer than first thought. [...] Medina LPN April 12, 2025 2:54 PM [facility]06-16-[facility] Miscellaneous Notes* Telephone Encounter - Johnna Medina LPN - 04/12/2025 2:54 PM EDT Son reports pt is still in [place] and is staying longer than first thought. [...] 12, 2025 2:54 PM documented in this encounterTwin City Hospital06-12-2025 Telephone encounter Note * Telephone Encounter - Maria Isabel Silverio RN - 04/08/2025 11:32 AM EDT Thank you, patient has cancelled all of her chemotherapy treatments. Elaina Silverio RN [facility] Work Phone: 1(821) 393-495906-12-2025 Miscellaneous Notes* Telephone Encounter - Maria Isabel Silverio RN - 04/08/2025 11:32 AM EDT Thank you, patient has cancelled all of her chemotherapy treatments. Elaina Silverio RN * Telephone Encounter - Isela Morris RN - 04/08/2025 11:11 AM EDT FYI- Patient is scheduled for consult with Dr Stoner on 04/19/25 for palliative radiation. Patient willbe out of the country 04/11-04/17. Patient is also scheduled for another ERCP 04/20. She saw Dr Nguyễn on 04/06 and is not a surgical candidate. I just wanted to make sure that you were aware. documented in this encounterTwin City Hospital06-12-2025 Telephone encounter Note * Telephone Encounter - Isela Morris RN - 04/08/2025 11:11 AM EDT FYI- Patient is scheduled for consult with Dr Stoner on 04/19/25 for palliative radiation. Patient [place] of the [place]. Patient is also scheduled for another ERCP 04/20. She saw Dr Nguyễn on 04/06 and is not a surgical candidate. I just wanted to make sure that you were aware. [facility]06-10-[facility] Telephone encounter Note* Telephone Encounter - Fatoumata Glynn - 04/06/2025 3:17 PM EDT Hey! This lady has PDAC s/p biliary [...] and current Scheduled ERCP for 04/20/25 8am. [facility]06-10-[facility] Miscellaneous Notes* Telephone Encounter - Fatoumata Glynn - 04/06/2025 3:17 PM EDT Hey! This lady has PDAC s/p biliary [...] . Are you on any blood thinners? Roberto, aware to stop 3 days prior Are you on any diabetic medications? no Do you have any allergies? In chart and current Scheduled ERCP for 04/20/25 8am. documented in [facility] encounterT[facility]06[facility] History of Present illness Narrative* Ayaz Nguyễn MD - 04/06/2025 1:45 PM EDT Images from the original note were not included. Ayaz Nguyễn MD Surgical Oncology [address] [facility], [address] [place] [address] Name: Telma Tineo Age: [age] year old [...] due to adverse effects. Since being off ofchemo, she has been able to return to her daily ADLs and enjoy her days. She reports not wanting tocontinue chemo and would rather prioritize quality of [...] Nguyễn MD 1528 04/06/2025 documented in this encounterTwin City Hospital06-10-2025 [facility]06-05[facility]25 NoteHNO ID: [id number] Author: SKYLER BHATIA MA Service: ? Author Type: Integration Lead Type: Progress Notes Filed: 04/01/2025 15:58 Note Text: [facility] History of Present illness Narrative* Skyler Bhatia MA - 04/01/2025 3:56 PM EDT Opened in error documented in this encounterTwin City Hospital06-03-2025 Instructions* Patient Instructions* Henok Martinez MD - 03/30/2025 2:22 PM [...] about one month after you return from [place]. Call our office when you re back [...] manage at home, consider hospice services for additionalcomfort support; we can help arrange a referral when you re ready. - Continue your current diabetes management plan; no changes are needed at this time. documented in this encounterTwin City Hospital06-03-2025 NoteHNO ID: [id number] Author: HENOK MARTINEZ MD Service: ? Author [...] sugar. Blood-Glucose Meter,Continuous (FREESTYLE TOLU 3 READER) [facility] Use to check blood sugar at least [...] mouth once daily. Blood Pressure Test Kit-Large ([employer] ARM BP MONITOR) 1 Each once daily. [...] (-) fever, (-) chi (more content not included)...[facility]06[facility]03[facility] History of Present illness Narrative* Henok Martinez MD - 03/30/2025 2:03 PM EDT Telma is an 84-year-old female with a history of pancreatic cancer, diabetes, and recent pneumonia,presenting for follow-up. HPI Pancreatic Cancer: - Tlema has discontinued chemotherapy due to severe side [...] times a day before meals at 6 amand 4 pm. Lancets Test Four times a [...] sugar. Blood-Glucose Meter,Continuous (FREESTYLE TOLU 3 READER) [facility] Use to check blood sugar at least [...] mouth once daily. Blood Pressure Test Kit-Large ([employer] ARM BP MONITOR) 1 Each once daily. [...] (cerebrovascular accident) Mild intermittent asthma without complication ([facility]) Primary hypertension Type 2 diabetes mellitus without [...] history andsocial history today. REVIEW OF SYSTEMS Constitutional: (-) [...] month to monitor for any signs of obstructionor liver dysfunction. - Recommended contacting Dr. Hernandez to evaluate the current status of the biliary stent, as it has been over three months since placement. - Follow-up appointment scheduled in 6-8 weeks to reassess condition and review lab results. - currently pain free. Discussed options down the road such as hospice. - She is going to [place] to visit relatives. 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 Patient/authorized medical service representative agreed to proceed documented in this encounterTwin City Hospital05-22-2025 NoteHNO ID: [id number] Author: JUAN ERNANDEZ RT(R) Service: ? Author Type: Labor Service Representative Type: Progress Notes Filed: 03/18/2025 13:48 Note [...] PATIENT PRESENTS WITH AN IMPLANTABLE OR ATTACHED REPORT CLERK: No RADIOLOGY DEPARTMENT: General X-ray: Exam(s) Completed: Chest X-Ray PERIPHERAL IV DATA: Not applicable SIGNED BY: RT Gavin(R) March 18, 2025 1:41 [facility]05-19-2025 Telephone encounter Note* Telephone Encounter - Mame To - 03/15/2025 1:01 PM EDT All appointments here have been canceled Mame Barreto [facility]05-19-[facility] Miscellaneous Notes* Telephone Encounter - Mame To - 03/15/2025 1:01 PM EDT All appointments here have been canceled Mame Barreto * Telephone Encounter - Maria Isabel Silverio RN - 03/15/2025 12:56 PM EDT PSS: please cancel all upcoming appointments with our office. Elaina Silverio RN * Telephone Encounter - Maria Isabel Silverio RN - 03/15/2025 12:55 PM EDT Received a call back from Timothy. Patient would like to put further treatments on hold. Timothy will keep us updated and call back if/when she is ready to have follow up and/or restart treatments. This nurse will make a reminder to check in with Timothy in a month if no return call by then. Elaina Silverio RN * Telephone Encounter - Maria Isabel Silverio RN - 03/15/2025 10:27 AM EDT Call to Timothy to clarify if we needed to cancel treatment also this week. No answer, left VM for himto call the office back. Elaina Silverio RN * Telephone Encounter - Jeanna Glynn RN - 03/15/2025 9:12 AM EDT Spoke with Telma's son, Timothy, over the phone. He forgot about Telma's appointment and states she isnot coming in for her office visit with Basil PALM today or for labs. She is now considering not pursuing chemotherapy treatment. She returned from out of state last night and she is leaving for [place] 03/18 to say goodbyes to her family. Son thinks she may end up staying in [place] but is not sure. documented in this encounterTwin City Hospital05-19-2025 Telephone encounter Note * Telephone Encounter - Maria Isabel Silverio RN - 03/15/2025 12:56 PM EDT PSS: please cancel all upcoming appointments with our office. Elaina Silverio RN [facility] Work Phone: 1(533) 981-782105-19-2025 Telephone encounter Note* Telephone Encounter - Maria Isabel Silverio RN - 03/15/2025 12:55 PM EDT Received a call back from Timothy. Patient would like to put further treatments on hold. Timothy will keep us updated and call back if/when she is ready to have follow up and/or restart treatments. This nurse will make a reminder to check in with Timothy in a month if no return call by then. Elaina Silverio RN [facility]05-19-[facility] Telephone encounter Note* Telephone Encounter - Maria Isabel Silverio RN - 03/15/2025 10:27 AM EDT Call to Timothy to clarify if we needed to cancel treatment also this week. No answer, left VM for himto call the office back. Elaina Silverio RN [facility]05-19-[facility] Telephone encounter Note* Telephone Encounter - Jeanna Glynn RN - 03/15/2025 9:12 AM EDT Spoke with Telma's son, Timothy, over the phone. He forgot about Telma's appointment and states she isnot coming in for her office visit with Basil PALM today or for labs. She is now considering not pursuing chemotherapy treatment. She returned from out of state last night and she is leaving for [place] 03/18 to say goodbyes to her family. Son thinks she may end up staying in [place] but is not sure. [facility]05-14-2025 NoteHNO ID: [id number] Author: SAFIA HENLEY RN Service: ? Author [...] Safia Henley RN March 10, 2025 11:39 [facility]05-14-2025 History of Present illness Narrative* Safia Henley RN - 03/10/2025 11:38 AM EDT Value Based Care Coordination Chart Review Provider Action / FYI: Upon review of patient chart, the patient is excluded from Chronic Disease Management Patient is not a candidate for CDM at this time and placed in the following status: Unable to reach Action taken: No action needed . 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 - Blood Pressure Test Kit-Large ([employer] ARM BP MONITOR) 1 Each once daily. 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 Patient had ulcer while she was in hospital. Son asking if patient needs to continue this medication? If patient isto continue medication new prescription with refills need to be [facility] to [facility]. The patient has been identified by [...] 08, 2025 2:21 PM documented in this encounterTwin City Hospital05-12-2025 Telephone encounter Note * Telephone Encounter - Nat Marcelo RN - 03/08/2025 2:19 PM EDT Patient's son calling and is asking if patient needs to continue taking sucralfate. Patient had ulcer while she was in hospital. Son asking if patient needs to continue this medication? If patient isto continue medication new prescription with refills [facility]. The patient has been identified by name [...] Marcelo RN March 08, 2025 2:21 PM [facility]05-[facility] Telephone encounter Note* Telephone Encounter - Mame To - 03/03/2025 11:21 AM EDT Tejas stated that she was going to come in soon for the x-ray and then based on those results she will schedule for port placement if the x-ray looks clear Mame Barreto [facility]05-07-2025 Miscellaneous Notes* Telephone Encounter - Mame To - 03/03/2025 11:21 AM EDT Tejas stated that she was going to come in soon for the x-ray and then based on those results she will schedule for port placement if the x-ray looks clear Mame Barreto * Telephone Encounter - Mame To - 03/03/2025 10:42 AM EDT I called and spoke to Tejas and [...] if the chest x-ray looks good Mame Barreto * Telephone Encounter - Maria Isabel Silverio RN - 03/03/2025 9:29 AM EDT PSS: please move out appointments 03/09 and 03/10 out a week and adjust schedule. please call Timothy with new date/times. Elaina Silverio RN * Telephone Encounter - Maria Isabel Silverio RN - 03/03/2025 9:28 AM EDT Call to Timothy, aware ok for travel to [place]. He states she is planning to be out of town for a week. 03/05 to 03/12. Appointments will need to be rescheduled. Elaina Silverio RN * Telephone Encounter - Maria Isabel Silverio RN - 03/03/2025 9:24 AM EDT Images from the original note were not included. * Telephone Encounter - Trevor Reynoso - 03/02/2025 3:30 PM EDT Timothy called asking if okay for patient to travel to [place] within the next few days by car. Pleasecall him and advise. documented in this encounterTwin City Hospital05-07-2025 Telephone encounter Note * Telephone Encounter - Mame To - 03/03/2025 10:42 AM EDT I called and spoke to Tejas and [...] chest x-ray looks good Mame Diaz Pss [facility]05-07-2025 Telephone encounter Note* Telephone Encounter - Maria Isabel Silverio RN - 03/03/2025 9:29 AM EDT PSS: please move out appointments 03/09 and 03/10 out a week and adjust schedule. please call Timothy with new date/times. Elaina Silverio RN [facility] Work Phone: 1(279) 278-652005-07-2025 Telephone encounter Note* Telephone Encounter - Maria Isabel Silverio RN - 03/03/2025 9:28 AM EDT Call to mary Aguirre for travel to [place]. He states she is planning to be out of town for a week. 03/05 to 03/12. Appointments will need to be rescheduled. Elaina Silverio RN [facility]05-07-2025 Telephone encounter Note* Telephone Encounter - aMria Isabel Silverio RN - 03/03/2025 9:24 AM EDT Images from the original note were not included. [facility]05-06-[facility] Telephone encounter Note* Telephone Encounter - Trevor Reynoso - 03/02/2025 3:30 PM EDT Timothy called asking if okay for patient to travel to [place] within the next few days by car. Pleasecall him and advise. [facility] Work Phone: 1(632) 125-564004-30-2025 Instructions* Patient Instructions* Henok Martinez MD - 02/24/2025 11:35 AM EDT Let me know how sugars are on in Saturday. documented in this encounterTwin City Hospital04-30-2025 NoteHNO ID: [id number] Author: HENOK MARTINEZ MD Service: ? Author Type: Physician Type: Progress Notes Filed: 02/24/2025 11:45 Note Text: No chief complaint on file. HPI: Patient presents today for office visit for hospital follow up. HOSPITAL/ER FOLLOW UP: Reason for visit: pneumonia Which facility: [facility] Date of visit: 02/11/25-02/14/25 Diagnosis: acute pneumonia, [...] sugar. Blood-Glucose Meter,Continuous (FREESTYLE TOLU 3 READER) [facility] Use to check blood sugar at least [...] mouth once daily. Blood Pressure Test Kit-Large ([employer] ARM BP MONITOR) 1 Each once daily. [...] Cancer Father No Kno (more content not included)...[facility]04-30-[facility] History of Present illness Narrative* Henok Martinez MD - 02/24/2025 10:49 AM EDT No chief complaint on file. HPI: Patient presents today for office visit for hospital follow up. HOSPITAL/ER FOLLOW UP: Reason for visit: pneumonia Which facility: [facility] Date of visit: 02/11/25-02/14/25 Diagnosis: acute pneumonia, [...] placement on 01/15/2025. EGD on 01/22/2025 showed non- bleeding duodenal ulcer. CT showed stable position of [...] times a day before meals at 6 amand 4 pm. insulin NPH-insulin regular 70/30 (NOVOLIN [...] sugar. Blood-Glucose Meter,Continuous (FREESTYLE TOLU 3 READER) [facility] Use to check blood sugar at least [...] mouth once daily. Blood Pressure Test Kit-Large ([employer] ARM BP MONITOR) 1 Each once daily. [...] long-term current use of insulin (HCC) - ICD9:250.00, 790.29, V58.67, ICD10: E11.65, Z79.4 - increase insulin and call with update on Saturday. - Continue current medications 5. Primary hypertension - ICD9: 401.9, ICD10: I10 - Controlled - Continue current medications Henok Martinez MD documented in this encounterTwin City Hospital04-30-2025 Telephone encounter Note * Telephone Encounter - Shabnam Ruiz LPN - 02/24/2025 8:57 AM EDT This will be addressed with provider today at visit. [facility]04-30-2025 Miscellaneous Notes* Telephone Encounter - Shabnam Ruiz LPN - 02/24/2025 8:57 AM EDT This will be addressed with provider today at visit. * Telephone Encounter - Henok Martinez MD - 02/23/2025 4:38 PM EDT Most of the cough meds are now otc. Would start with delsym otc * Telephone Encounter - Nat Solis - 02/23/2025 2:56 PM EDT Spoke with patient's son to reschedule the an appointment. Patient's son is asking if Dr. Martinez can prescribe some cough medicine as the patient's cough is not going away/stopping. Patient is seeing Dr. Becker tomorrow for Hospital Discharge Follow up (Patient will only see MD's/DO's and not SAFETY AND SECURITY OFFICER'sand first available Hospital D/C w/ Dr. Martinez is almost 3 weeks post-discharge.) Please advise. Nat Solis documented in this encounterTwin City Hospital04-29-2025 Telephone encounter Note * Telephone Encounter - Henok Martinez MD - 02/23/2025 4:38 PM EDT Most of the cough meds are now otc. Would start with delsym otc [facility]04-29-20[facility] Telephone encounter Note* Telephone Encounter - Nat Solis - 02/23/2025 2:59 PM EDT Spoke with patient's son and rescheduled with Dr. Becker as patient will only see MD's/DO's and not SAFETY AND SECURITY OFFICER's. Nat Solis [facility]04-29-2025 Miscellaneous Notes* Telephone Encounter - Nat Solis - 02/23/2025 2:59 PM EDT Spoke with patient's son and rescheduled with Dr. Becker as patient will only see MD's/DO's and not SAFETY AND SECURITY OFFICER's. Nat Solis * Telephone Encounter - Jose Ortiz LPN - 02/23/2025 10:11 AM EDT Pt was scheduled for 20min 4c Est continued cough follow up. On 02/24/25. Pt was actually admitted to [facility] 02/10/25 and dc'd on 02/14/25 with a diagnosis of pneumonia and RSV.Pt needs rescheduled for a 4c Est Hosp/ER follow up. Jose Ortiz LPN documented in this encounterTwin City Hospital04-29-2025 Telephone encounter Note * Telephone Encounter - Nat Solis - 02/23/2025 2:56 PM EDT Spoke with patient's son to reschedule the an appointment. Patient's son is asking if Dr. Martinez can prescribe some cough medicine as the patient's cough is not going away/stopping. Patient is seeing Dr. Becker tomorrow for Hospital Discharge Follow up (Patient will only see MD's/DO's and not SAFETY AND SECURITY OFFICER'sand first available Hospital D/C w/ Dr. Martinez is almost 3 weeks post-discharge.) Please advise. Nat Solis [facility]04-29-2025 Telephone encounter Note* Telephone Encounter - Jose Ortiz LPN - 02/23/2025 10:11 AM EDT Pt was scheduled for 20min 4c Est continued cough follow up. On 02/24/25. Pt was actually admitted to [facility] 02/10/25 and dc'd on 02/14/25 with a diagnosis of pneumonia and RSV.Pt needs rescheduled for a 4c Est Hosp/ER follow up. Jose Ortiz LPN [facility]04-29-2025 Telephone encounter Note* Telephone Encounter - Trevor Reynoso - 02/23/2025 9:38 AM EDT Son called and confirmed 5/13 and 5/14 [facility] Work Phone: 1(443) 755-108704-29-2025 Miscellaneous Notes* Telephone Encounter - Trevor Reynoso - 02/23/2025 9:38 AM EDT Son called and confirmed 5/13 and 5/14 * Telephone Encounter - Trevor Reynoso - 02/23/2025 9:32 AM EDT Schedule updated Message left for patient to contact office to confirm 5/13 lab and office visit, treatment next day. * Telephone Encounter - Maria Isabel Silverio RN - 02/22/2025 2:48 PM EDT Cycle 2 cancelled and needs rescheduled for week after her port is placed on 03/04/25. The rest of schedule will need adjusted. Please call patient with new times. She is aware of all this as it was discussed at today. Elaina Silverio RN documented in this encounterCleveland [id number] Telephone encounter Note * Telephone Encounter - Trevor Reynoso - 02/23/2025 9:32 AM EDT Schedule updated Message left for patient to contact office to confirm 03/09 lab and office visit, treatment next day. [facility]04-28-20[facility] Telephone encounter Note* Telephone Encounter - Maria Isabel Silverio RN - 02/22/2025 2:48 PM EDT Cycle 2 cancelled and needs rescheduled for week after her port is placed on 03/04/25. The rest of schedule will need adjusted. Please call patient with new times. She is aware of all this as it was discussed at OV today. Elaina Silverio RN [facility] Work Phone: [phone]) [phone] History of Present illness Narrative* Trevor Ordonez RT(R) - 02/22/2025 10:50 AM EDT Radiology Service Progress Note PATIENT [...] Cane, Wheelchair, Crutches, etc.)? Yes, Patient High Riskfor Falls What interventions were put in place to prevent falls during this visit? Increased Observations by Caregivers PATIENT GENDER DATA: Assigned female at . status: : No status:NO. PATIENT RELEVANT IMPLANT DATA REVIEWED: Not Applicable PATIENT PRESENTS WITH AN IMPLANTABLE OR ATTACHED REPORT CLERK: Yes [facility] RADIOLOGY DEPARTMENT: General X-ray: Exam(s) Completed: Chest X-Ray PERIPHERAL IV DATA: Not applicable SIGNED BY: RT Tahmina(R) February 22, 2025 2:02 PM documented in this encounterTwin City Hospital04-28-2025 NoteHNO ID: [id number] Author: TREVOR ORDONEZ RT(Dylan) Service: ? Author [...] PATIENT PRESENTS WITH AN IMPLANTABLE OR ATTACHED REPORT CLERK: Yes [employer] RADIOLOGY DEPARTMENT: General X-ray: Exam(s) Completed: Chest X-Ray PERIPHERAL IV DATA: Not applicable SIGNED BY: RT Tahmina(Dylan) February 22, 2025 2:02 [facility]04-28-2025 NoteHNO ID: [id number] Author: JUAN MIGUEL YUSUF MD Service: ? [...] presented with painless jaundice, admitted initially at [facility], transferred for further work up at [facility]. Saw hepatobiliary surgery there, noted pancreatic mass. [...] sugar. Blood-Glucose Meter,Continuous (FREESTYLE TOLU 3 READER) [facility] Use to check blood sugar at least [...] by mouth once daily. (more content not included)...[facility]04-24-2025 NoteHNO ID: [id number] Author: DAINA CANTU RN Service: ? Author Type: Registered Nurse [...] Gonzalez, Vi De La Rosa, David White. Daina Cantu, BSN, RN [employer]' The above documentation represents the discussion outcomes after review of this patient's case during the weekly Tumor Board.[facility] 02-15-2025 Telephone encounter Note* Telephone Encounter - Maria Isabel Silverio RN - 02/15/2025 12:[address] Yusuf [facility] this . Keep appointments as scheduled. Elaina Silverio RN [facility] Work Phone: 1(573) 178-993304-21-2025 Miscellaneous Notes* Telephone Encounter - Maria Isabel Silverio RN - 02/15/2025 12:[address] Yusuf [facility] . Keep appointments as scheduled. Elaina Silverio RN * Telephone Encounter - Maria Isabel Silverio RN - 02/15/2025 10:17 AM EDT DISCHARGE CALL BACK Today's date: February 15, 2025 Notified of Pt discharge by: Erin Patient discharged on 4/20/25 from [facility] to Home Primary Cancer Diagnosis: pancreatic Admitting Diagnosis: acute pneumonia Discharge Summary/SBAR reviewed: Yes Handoff Discussed with Transitional Table [employer]: N/A Psychosocial Risk Factors: None If patient [...] Yes Patient reminded of follow-up appointment with [facility] provider, Dr. Yusuf on 02/22/25: Yes Discussed Has follow up with PCP. Will discuss labs with Dr. Yusuf and ok for port on . Will call back if plan needs to change. Timothy is picking up Rx at this time. Questions answered. PATIENT EDUCATION / REINFORCEMENT Patient verbalizes understanding of when to seek Medical Attention? YES Patient verbalizes understanding of after hours and weekend phone number? YES Maria Isabel Silverio RN documented in this encounterTwin City Hospital04-21-2025 NoteHNO ID: [id number] Author: NANCY HDZ MA Service: ? Author Type: Integration Lead Type: Progress Notes Filed: 02/15/2025 10:31 Note Text: POPULATION HEALTH NAVIGATION OUTREACH Action/I February 15, 2025 10:18 AM CM Pool Message Type: TCM Navigation Team Update / Actionable Items Spoke with Patient's son. Patient TCM eligible till 03/01/2025. High risk 17% or higher. Please schedule within 7 days Patient discharged from [facility] Discharge date: 02/14/2025 Admitted for: Acute Pneumonia [...] Nancy Hdz MA February 15, 2025 10:18 [facility]04-21-2025 History of Present illness Narrative* Nancy Hdz MA - 02/15/2025 10:18 AM EDT POPULATION HEALTH NAVIGATION OUTREACH Action/FYI February 15, 2025 10:18 AM CM Pool Message Type: TCM Navigation Team Update / Actionable Items Spoke with Patient's son. Patient TCM eligible till 03/01/2025. High risk 17% or higher. Please schedule within 7 days Patient discharged from [facility] Discharge date: 02/14/2025 Admitted for: Acute Pneumonia [...] Hdz MA February 15, 2025 10:18 AM * Paulette Cagle RN - 02/15/2025 9:46 AM EDT Transition Care Management (TCM) Initial Outreach PCP Update / Actionable Items Navigation Team Update / Actionable Items Spoke with Patient's son. Patient TCM eligible till 03/01/2025. High risk 17% or higher. Please schedule within 7 days. Thanks! HRTIC TCM Home Visit Referral Source of Stratification: [facility] Hospital Admission Status: Discharged Readmission Risk Score: 17 Patient's zip code: [address] Is zip code within program service area: [...] AM Nurse Vst with Lab/[place] [facility] Hematology/Oncology February 22, 2025 10:20 AM Office Vst with Juan Miguel Yusuf MD Hematology/Oncology February 24, 2025 11:00 AM 3 Hr Tx with TREATMENT RM 6 VIR[facility] Hematology/Oncology Spoke with patient's son, Timothy. States patient is doing well. Denies any new or worsening symptoms.Partial medication review completed. Son with monitor blood [...] losartan 100 mg tablet Patient discharged from [facility] Discharge date: 02/14/2025 Admitted for: Acute Pneumonia Readmission Risk: 17 Value-Based Contract: ACO Contact: Contact made with patient: Yes Hi, my name is Paulette Cagle RN and I am calling from the [facility] on behalf of your Primary Care [...] provider to ensure you have safely transitioned home.If you are agreeable, I will send your request to a junior administrative assistant who will contact and assist you with that appointment. This will give you an opportunity to ask any questions or address any concerns youmay have with your PCP. Inform the patient that if they have any questions or concerns prior to that appointment, to call their PCP's office right away. Appointment Action: Patient desires an appointment. Complete Navigation Team box and route to appropriate pool for scheduling. Education details: Patient and family educated on issues/questions related to reason for admission,transition of care topics, and follow-up needed upon discharge. Paulette Cagle RN February 15, 2025 9:59 AM documented [facility] Telephone encounter Note * Telephone Encounter - Maria Isabel Silverio RN - 02/15/2025 10:17 AM EDT DISCHARGE CALL BACK Today's date: February 15, 2025 Notified of Pt discharge by: Erin Patient discharged on 02/14/25 from [facility] to Home Primary Cancer Diagnosis: pancreatic Admitting Diagnosis: acute pneumonia Discharge Summary/SBAR reviewed: Yes Handoff Discussed with Transitional [employer]: N/A Psychosocial Risk Factors: None If patient [...] Yes Patient reminded of follow-up appointment with [facility] provider, Dr. Yusuf on 02/22/25: Yes Discussed Has follow up with PCP. Will discuss labs with Dr. Yusuf and [facility] on . Will call back if plan needs to change. Timothy is picking up Rx at this time. Questions answered. PATIENT EDUCATION / REINFORCEMENT Patient verbalizes understanding of when to seek Medical Attention? YES Patient verbalizes understanding of after hours and weekend phone number? YES Maria Isabel Silverio RN [facility]04-21-2025 NoteHNO ID: [id number] Author: PAULETTE CAGLE RN Service: ? Author [...] Home Visit Referral Source of Stratification: [facility] Hospital Admission Status: Discharged Readmission Risk Score: 17 Patient's zip code: [address] Is zip code within program service area: [...] AM Nurse Vst with Lab/[place] [facility] Hematology/Oncology February 22, 2025 10:20 AM Office Vst with Juan Miguel Yusuf MD Hematology/Oncology February 24, 2025 11:00 AM 3 Hr Tx with TREATMENT RM 6 [facility] Hematology/Oncology Spoke with patient's son, Timothy. States [...] losartan 100 mg tablet Patient discharged from [facility] Discharge date: 02/14/2025 Admitted for: Acute Pneumonia Readmission Risk: 17 Value-Based Contract: ACO Contact: Contact made with patient: Yes Hi, my name is Paulette Cagle RN and I am calling from the [facility] on behalf of your Primary Care [...] / TCM Fo (more content not included)... [facility]04-21-2025 NotePatient Outreach (AMBCMG) TELMA TINEO ([id number]) 1940 F Date Time Provider Department 02/15/25 PAULETTE CAGLECMG During your visit today, we recorded the following information about you: Paulette Cagle, RN 02/15/2025 10:07 AM Signed Transition Care Management (TCM) Initial Outreach PCP Update / Actionable Items Navigation Team Update / Actionable Items Spoke with Patient's son. Patient TCM eligible till 03/01/2025. High risk 17% or higher. Please schedule within 7 days. Thanks! HRTIC TCM Home Visit Referral Source of Stratification: [facility] Hospital Admission Status: Discharged Readmission Risk Score: 17 Patient's zip code: [address] Is zip code within program service area: [...] AM Nurse Vst with Lab/[place] [facility] Hematology/Oncology February 22, 2025 10:20 AM Office Vst with Juan Miguel Yusuf MD Hematology/Oncology February 24, 2025 11:00 AM 3 Hr Tx with TREATMENT RM 6 [facility] Hematology/Oncology Spoke with patient's son, Timothy. States [...] losartan 100 mg tablet Patient discharged from [facility] Discharge date: 02/14/2025 Admitted for: Acute Pneumonia Readmission Risk: 17 Value-Based Contract: ACO Contact: Contact made with patient: Yes Hi, my name is Paulette Calge RN and I am calling from the [facility] on behalf of your Primary Care [...] have been addressed wit (more content not included)...[facility]04-19-2025 [facility]04-18-2025 [facility]04-18-2025 NoteHNO ID: [id number] Author: YUSUF EPPS, MAGNUS Service: ? Author Type: Registered Nurse Type: Progress Notes Filed: 02/12/2025 08:21 Note Text: Patient is inpatient [place].[facility]04-17-2025 NoteHNO ID: [id number] Author: HILDA WRIGHT MA Service: ? Author Type: Integration Lead Type: Progress Notes Filed: 02/11/2025 17:11 Note Text: POPULATION HEALTH NAVIGATION OUTREACH Action/FYI Patient's son returning [facility]'s phone call. Son stated patient is currently admitted at [facility]. You can reach son at [phone]. Reason for Outreach Healthy at Home Care Gaps due: N/A Call received from: Patient Patient Contacted: Spoke to patient/parent/or legal guardian Patient identified by name and date of Yes Healthy at Home actions taken: Routed to [facility] Devon Bynum RN as FYI Navigation Signature: Hilda Wright MA February 11, 2025 5:09 [facility]04-17-2025 History of Present illness Narrative* Hilda Wright MA - 02/11/2025 5:08 PM EDT POPULATION HEALTH NAVIGATION OUTREACH Action/FYI Patient's son returning [facility]'s phone call. Son stated patient is currently admitted at [facility]. You can reach son at [phone]. Reason for Outreach Healthy at Home Care Gaps due: N/A Call received from: Patient Patient Contacted: Spoke to patient/parent/or legal guardian Patient identified by name and date of Yes Healthy at Home actions taken: Routed to [facility] Devon Bynum RN as FYI Navigation Signature: Hilda Wright MA February 11, 2025 5:09 PM documented in this encounterTwin City Hospital04-17-2025 NoteHNO ID: [id number] Author: DEVON BYNUM RN Service: ? Author Type: Registered Nurse Type: Progress Notes Filed: 02/11/2025 16:19 Note Text: Transitional Care Management (TCM) Inpatient Outreach N/A - No specialty updates needed Summary: Patient admitted to: [facility] Patient admitted on: (Not on file) 02/10/25 Admitted for: acute Pneumonia Contact made with patient: Heather Emilia, II am a Registered Nurse and I am calling from the [facility] on behalf of your primary care provider. I am sorry that I missed you today, but your care is important to us, and we would like to touch base with you. Please check your My Chart for a message related to your current hospital stay., Thank you and have a great day. Devon Bynum RN February 11[facility]04[facility]17[facility] History of Present illness Narrative* Devon Bynum RN - 02/11/2025 4:03 PM EDT Transitional Care Management (TCM) Inpatient Outreach N/A - No specialty updates needed Summary: Patient admitted to: [facility] Patient admitted on: (Not on file) 02/10/25 Admitted for: acute Pneumonia Contact made with patient: Heather Emilia, II am a Registered Nurse and I am calling from the [facility] on behalf of your primary care provider. I am sorry that I missed you today, but your care is important to us, and we would like to touch base with you. Please check your My Chart for a message related to your current hospital stay., Thank you and have a great day. Devon Bynum RN February 11, 2025 documented in this encounterTwin City Hospital04-17-2025 [facility]04-17-2025 NotePatient Outreach (NETNAV) TELMA TINEO ([id number]) 1940 F Date Time Provider Department 02/11/25 HILDA WRIGHT During your visit today, we recorded the following information about you: Hilda Wright MA 02/11/2025 5:11 PM Signed POPULATION HEALTH NAVIGATION OUTREACH Action/FYI Patient's son returning [facility]'s phone call. Son stated patient is currently admitted at [facility]. You can reach son at [phone]. Reason for Outreach Healthy at Home Care Gaps due: N/A Call received from: Patient Patient Contacted: Spoke to patient/parent/or legal guardian Patient identified by name and date of Yes Healthy at Home actions taken: Routed to [facility] Devon Bynum RN as FYI Navigation Signature: Hilda Wright MA February 11, 2025 5:09 PM Allergies As of Date: 02/11/2025 Noted Allergy Reaction PENICILLINS 09/14/2021 10 - Anaphylaxis TETRACYCLINE 09/14/2021 2 - Rash TRAMADOL 07/01/2024 5 - Intolerance Comments: Trembling Date Reviewed: 02/11/2025 Reviewed by: Daphnie Ch LPN - Fully Assessed Reason for Visit: Population Health Navigation Outreach [3910] Cmt: H@[facility] Call Prescriptions as of 02/11/2025 - [...] - Blood-Glucose Meter,Continuous (FREESTYLE TOLU 3 READER) [facility] Use to check blood sugar at least [...] once daily. - Blood Pressure Test Kit-Large ([employer] ARM BP MONITOR) 1 Each once daily. [...] 05/20/2023 Impaired cognition [R41.89] 05/20/2023 Diagnosed: 05/20/2023 detention current use of anticoagulant therapy *05/20 (more content not included)...[facility]04-17-2025 NotePatient Outreach (AMBCMG) TELMA TINEO ([id number]) 1940 F Date Time Provider Department 02/11/25 DEVON BYNUM AMBCMG During your visit today, we recorded the following information about you: Devon Bynum, RN 02/11/2025 4:19 PM Signed Transitional Care Management (TCM) Inpatient Outreach N/A - No specialty updates needed Summary: Patient admitted to: [facility] Patient admitted on: (Not on file) 02/10/25 Admitted for: acute Pneumonia Contact made with patient: Heather Nieto, II am a Registered Nurse and I am calling from the [facility] on behalf of your primary care [...] - Blood-Glucose Meter,Continuous (FREESTYLE TOLU 3 READER) [facility] Use to check blood sugar at least [...] once daily. - Blood Pressure Test Kit-Large ([employer] ARM BP MONITOR) 1 Each once daily. [...] cognition [R41.89] 05/20/2023 Diagnos (more content not included)...[facility]04-16-2025 Note SARS-COV-2 (AGENT OF COVID-19) RNA: Not detected INFLUENZA A RNA: Not detected INFLUENZA B RNA: Not detected RESPIRATORY SYNCYTIAL VIRUS (RSV) RNA: DetectedHoulton Regional HospitalComment on above:Performed By: #### [id number] ####[facility] LABORATORYCLIA [id number] [address] STATES OF [id number] Telephone encounter Note* Telephone Encounter - Maria Isabel Silverio RN - 02/09/2025 1:[address] Yusuf updated and no further instructions. Elaina Silverio RN [facility] Work Phone: 1(680) 839-589404-15-2025 Miscellaneous Notes* Telephone Encounter - Maria Isabel Silverio RN - 02/09/2025 1:[address] Yusuf updated and no further instructions. Elaina Silverio RN * Telephone Encounter - Maria Isabel Silverio RN - 02/09/2025 12:04 PM EDT [facility] Coordination FOLLOW-UP NOTE Patient identified by name and date of . YES Spoke to Timothy Summary: (Reason for follow-up) Call to Timothy for update on cough/congestions as he reported earlier today in another note that thisis not getting better. Patient is finishing her [...] and an understanding of after- hours phone numberand process: Yes Care Coordination Plan: Will update Dr. Yusuf and call back if any further instructions. Maria Isabel Silverio RN February 09, 2025 documented in this encounterTwin City Hospital04-15-2025 Telephone encounter Note * Telephone Encounter - Maria Isabel Silverio RN - 02/09/2025 12:04 PM EDT [facility] Care Coordination FOLLOW-UP NOTE Patient identified by name and date of . YES Spoke to Timothy Summary: (Reason for follow-up) Call to Timothy for update on cough/congestions as he reported earlier today in another note that thisis not getting better. Patient is finishing her [...] and an understanding of after- hours phone numberand process: Yes Care Coordination Plan: Will update Dr. Yusuf and call back if any further instructions. Maria Isabel Silverio RN February 09, 2025 [facility]04-14-2025 Telephone encounter Note* Telephone Encounter - Azra Zuniga LPN - 02/08/2025 1:[address] [facility] contacted office states pt. Is scheduled for tooth Extraction on 02/15 @ 8:[address] Yusuf made aware. Azra Zuniga LPN [facility]04-14-2025 Miscellaneous Notes* Telephone Encounter - Azra Zuniga LPN - 02/08/2025 1:[address] contacted office states pt. Is scheduled for tooth Extraction on 02/15 @ 8:[address] Yusuf made aware. Azra Zuniga LPN documented in this encounterTwin City Hospital04-14-2025 Telephone encounter Note * Telephone Encounter - Maria Isabel Silverio RN - 02/08/2025 12:14 PM EDT [place] Care Coordination FOLLOW-UP NOTE Patient identified by [...] and an understanding of after- hours phone numberand process: Yes Care Coordination Plan: No further follow up needed at this time Maria Isabel Silverio RN February 08, 2025 [facility] Work Phone: 1(977) 387-998504-14-2025 Miscellaneous Notes* Telephone Encounter - Maria Isabel Silverio RN - 02/08/2025 12:14 PM EDT [facility] Care Coordination FOLLOW-UP NOTE Patient identified [...] and an understanding of after- hours phone numberand process: Yes Care Coordination Plan: No further follow up needed at this time Maria Isabel Silverio RN February 08, 2025 documented in this encounterTwin City Hospital04-11-2025 Telephone encounter Note * Telephone Encounter - Juanis Schuster RN - 02/05/2025 5:03 PM EDT CXR completed today with Dr. Yusuf. ATB started. Follow up scheduled for 02/11/2025 post ATB. Timothy to call back if symptoms change or patient becomes worse. Juanis Schuster RN [facility]04-11-2025 Miscellaneous Notes* Telephone Encounter - Juanis Schuster RN - 02/05/2025 5:03 PM EDT CXR completed today with Dr. Yusuf. ATB started. Follow up scheduled for 02/11/2025 post ATB. Timothy to call back if symptoms change or patient becomes worse. Juanis Schuster RN * Telephone Encounter - Li Allison MA - 02/05/2025 10:03 AM EDT Message left for Timothy rayo to call back to schedule an appointment for Telma. Li Allison MA * Telephone Encounter - Henok Martinez MD - 02/05/2025 9:43 AM EDT With her issues,likely needs seen * Telephone Encounter - Danielle Modi - 02/05/2025 9:15 AM EDT Timothy is calling Henok Martinez MD today with concern regarding Patient Question (cough) SonTimothy, reports patient is on chemo and has had cough and congestion that has not been handled by OTC treatments. Currently they are at a chemo appointment today. Advised to speak to oncology about continued coughand Timothy is asking if she can be prescribed something or give a recommendation. Patient has been identified by name and birthdate. Duration of symptoms: 1 weeks Person calling: sonMann Aguirre Call patient at: [phone] (home) [phone] (cell) Was an appointment scheduled: No. She is at chemo today. Closing statement: Danielle Barreto documented in this encounterTwin City Hospital04-11-2025 Telephone encounter Note * Telephone Encounter - Rachel Bañuelos - 02/05/2025 3:48 PM EDT Spoke with patient's son and reschedule port placement for 02/18. Rachel Bañuelos [facility]04-11-2025 Miscellaneous Notes* Telephone Encounter - Rachel Bañuelos - 02/05/2025 3:48 PM EDT Spoke with patient's son and reschedule port placement for 02/18. Rachel Bañuelos * Telephone Encounter - Rachel Bañuelos - 02/05/2025 2:55 PM EDT Secure chat started for rescheduling port Rachel Bañuelos * Telephone Encounter - Yelitza Hopper LPN - 02/05/2025 1:06 PM EDT Timothy notified. Advised ER if she gets worse over the weekend. Encouraged rest and hydration. Scheduled for port placement on Saturday, please assist in moving out one week per secure chat below. Left VM on Timothy's phone that we will need to reschedule. Please call family and assist with rescheduling. Yelitza Hopper LPN * Telephone Encounter - Yelitza Hopper LPN - 02/05/2025 12:55 PM EDT Images from the original note were not included. * Telephone Encounter - Nat Clifford RN - 02/05/2025 11:[address] Yusuf called in Z morgan for pt. * Telephone Encounter - Nat Clifford RN - 02/05/2025 10:10 AM EDT [id number] Gemzar/Abraxane Pt has a dental crown [...] OK for treatment today. documented in this encounterTwin City Hospital04-11-2025 Telephone encounter Note * Telephone Encounter - Rachel Bañuelos - 02/05/2025 2:55 PM EDT Secure chat started for rescheduling port Rachel Bañuelos [facility]04-11-2025 Telephone encounter Note* Telephone Encounter - Yelitza Hopper LPN - 02/05/2025 1:06 PM EDT Timothy notified. Advised ER if she gets worse over the weekend. Encouraged rest and hydration. Scheduled for port placement on Saturday, please assist in moving out one week per secure chat below. Left VM on Timothy's phone that we will need to reschedule. Please call family and assist with rescheduling. Yelitza Hopper LPN [facility]04-11-2025 Telephone encounter Note* Telephone Encounter - Yelitza Hopper LPN - 02/05/2025 12:55 PM EDT Images from the original note were not included. [facility]04-11-2025 History of Present illness Narrative* Trevor Ordonez RT(Dylan) - 02/05/2025 12:30 PM EDT Radiology Service Progress Note PATIENT [...] Assigned female at . status: : No status:N/A PATIENT RELEVANT IMPLANT DATA REVIEWED: Not Applicable PATIENT PRESENTS WITH AN IMPLANTABLE OR ATTACHED REPORT CLERK: Yes [facility] RADIOLOGY DEPARTMENT: General X-ray: Exam(s) Completed: Chest X-Ray PERIPHERAL IV DATA: Not applicable SIGNED BY: RT Tahmina(Dylan) February 05, 2025 12:02 PM documented in this encounterTwin City Hospital04-11-2025 NoteHNO ID: [id number] Author: JOSÉ LUIS, TREVOR, RT(R) Service: ? Author Type: Technologist Type: [...] PATIENT PRESENTS WITH AN IMPLANTABLE OR ATTACHED REPORT CLERK: Yes [employer] RADIOLOGY DEPARTMENT: General X-ray: Exam(s) Completed: Chest X-Ray PERIPHERAL IV DATA: Not applicable SIGNED BY: RT Tahmina(R) February 05, 2025 12:02 [facility]04-11-2025 Telephone encounter Note* Telephone Encounter - Addison Holley LISW - 02/05/2025 11:44 AM EDT SOCIAL WORK FOLLOW UP NOTE: [facility]ER CENTER Date of service: February 05, 2025 Telma Tineo is being seen for a follow up social work visit. Today's visit includes: Son/Caregiver, Timothy TOPICS ADDRESSED: coping/support - Following chair-side assessment with family this date, pt's son,Timothy, asked to speak with SW privately. SAM [...] time to speak with SW this date. SAM utilized active listening, empathy, and support. Timothy encouraged to call or stop in and speak with SW anytime and also to utilize support groups and family resources available to him. SAM spent 35 minutes this date with Timothy. PLAN: Communicate pertinent medical/psychosocial information to Cancer Center team, Continue followup as needed , and Provide emotional support to patient/family F/U APPOINTMENT: PRN Assigned SAM listed in Care Team tab: Yes JOSÉ Ferguson-Naveen [facility]04-11-2025 Miscellaneous Notes* Telephone Encounter - Addison Holley LISW - 02/05/2025 11:44 AM EDT SOCIAL WORK FOLLOW UP NOTE: CANCER CENTER Date of service: February 05, 2025 Telma Tineo is being seen for a follow up social work visit. Today's visit includes: Son/Caregiver, Timothy TOPICS ADDRESSED: coping/support - Following chair-side assessment with family this date, pt's son,Timothy, asked to speak with SW privately. SW [...] medical/psychosocial information to Cancer Center team, Continue followup as needed , and Provide emotional support to patient/family F/U APPOINTMENT: PRN Assigned SW listed in Care Team tab: Yes KANDACE Ferguson documented in this encounterTwin City Hospital04-11-2025 Telephone encounter Note * Telephone Encounter - Nat Clifford RN - 02/05/2025 11:[address] Yusuf called in Z morgan for pt. [facility]04-11-2025 Telephone encounter Note* Telephone Encounter - Addison Holley LISW - 02/05/2025 10:34 AM EDT PSYCHOSOCIAL SCREENING ASSESSMENT Date of Service: February [...] Father is Child/Children: Yes. How many? 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 No Financial Distress: No Ruffin: No FOOD INSECURITY Within the past year, [...] EPIC: No Health Care Durable Power of Health Sciences Program Coordinator: No and provided Living Will information for [...] copy of AD forms. Pt reports she wouldlike to discuss with her children and complete [...] daughter, Telma Ernst. She has six adult children,3 of whom live in [place], 3 still living in [place] where pt moved from. Pt reports she was born andraised in [place] and moved to [place], [place] at 19 years old. Pt raised [...] day. He reports he is currently not workingin order to care for pt. SW discussed with Timothy how to become a paid caregiver for pt and advised him to call pt's Medicaid rehabilitation caseworker and apply through the state. Pt declines any financial concerns, transportation issues, or food scarcity. She reports she is well taken care of by Timothy and has no immediate needs at this time. SW oriented pt and family to SW role and explained all available resources/referrals. SW discussed [facility], [facility], and [facility]. Pt declined any further needs at this time andagreed to reach out to SW if needs [...] be in charge of medical information or decisionmaking. Psychosocial Risk Criteria If positive for one [...] in Care Team tab: Yes JOSÉ Ferguson-S [facility]04-11-2025 Miscellaneous Notes* Telephone Encounter - Addison Holley LISW - 02/05/2025 10:34 AM EDT PSYCHOSOCIAL SCREENING ASSESSMENT Date of Service: February [...] Father is Child/Children: Yes. How many? 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 No Financial Distress: No Ruffin: No FOOD INSECURITY Within the past year, [...] EPIC: No Health Care Durable Power of Health Sciences Program Coordinator: No and provided Living Will information for [...] copy of AD forms. Pt reports she wouldlike to discuss with her children and complete [...] Royce External: [facility] and Other [facility] CLINICAL IMPRESSION: Telma is a very pleasant 84 year old woman receiving treatment for pancreatic cancer. She is accompanied to treatment today by her son, Timothy, and daughter, Telma Ernst. She has six adult children,3 of whom live in [place], 3 still living in [place] where pt moved from. Pt reports she was born andraised in [place] and moved to [place], [place] at 19 years old. Pt raised [...] day. He reports he is currently not workingin order to care for pt. SW discussed with Timothy how to become a paid caregiver for pt and advised him to call pt's Medicaid rehabilitation caseworker and apply through the state. Pt declines any financial concerns, transportation issues, or food scarcity. She reports she is well taken care of by Timothy and has no immediate needs at this time. SW oriented pt and family to SW role and explained all available resources/referrals. SW discussed [facility], [facility], and [facility]. Pt declined any further needs at this time andagreed to reach out to SW if needs [...] be in charge of medical information or decisionmaking. Psychosocial Risk Criteria If positive for one [...] in Care Team tab: Yes JOSÉ Ferguson-Naveen [facility] Telephone encounter Note * Telephone Encounter - Nat Clifford RN - 02/05/2025 10:10 AM EDT [id number] Gemzar/Abraxane Pt has a dental crown [...] stated above. States OK for treatment today. [facility]04-11-2025 Telephone encounter Note* Telephone Encounter - Li Allison MA - 02/05/2025 10:03 AM EDT Message left for sonTimothy to call back to schedule an appointment for Telma. Li Allison MA [facility]04-11-2025 Telephone encounter Note* Telephone Encounter - Henok Martinez MD - 02/05/2025 9:43 AM EDT With her issues,likely needs seen [facility]04-11-2025 Telephone encounter Note* Telephone Encounter - Danielle Modi - 02/05/2025 9:15 AM EDT Timothy is calling Henok Martinez MD today with concern regarding Patient Question (cough) Son, Timothy, reports patient is on chemo and has had cough and congestion that has not been handled by OTC treatments. Currently they are at a chemo appointment today. Advised to speak to oncology about continued coughand Timothy is asking if she can be prescribed something or give a recommendation. Patient has been identified by name and birthdate. Duration of symptoms: 1 weeks Person calling: son: Timothy Call patient at: [phone] (home) [phone] (cell) Was an appointment scheduled: No. She is at chemo today. Closing statement: Danielle Barreto T [facility] Work Phone: 1(988) 959-426404-11-2025 Telephone encounter Note* Telephone Encounter - Maria Isabel Silverio RN - 02/05/2025 8:58 AM EDT No return phone call yesterday or this am. She has treatment scheduled for today and we can f/u with Timothy/patient at that time. Elaina Silverio RN T [facility] Work Phone: [phone] Miscellaneous Notes* Telephone Encounter - Maria Isabel Silverio RN - 02/05/2025 8:58 AM EDT No return phone call yesterday or this am. She has treatment scheduled for today and we can f/u with Timothy/patient at that time. Elaina Silverio RN * Telephone Encounter - Maria Isabel Silverio RN - 02/04/2025 11:17 AM EDT Call for update on patient. Spoke with Timothy, they are at f/u with Dr. Nguyễn. He will call back at a later time. Elaina Silverio RN documented in this encounterT[facility]04-[facility]25 Telephone encounter Note * Telephone Encounter - Maria Isabel Silverio RN - 02/04/2025 11:17 AM EDT Call for update on patient. Spoke with Timothy, they are at f/u with Dr. Nguyễn. He will call back at a later time. Elaina Silverio RN [facility]04-10-2025 History of Present illness Narrative* Ayaz Nguyễn MD - 02/04/2025 11:00 AM EDT Images from the original note were not included. Ayaz Nguyễn MD Surgical Oncology [address] [facility], [address] [place] [id number] Name: Telma Tineo Age: [age] year old [...] personal review, pancreatic mass appears in the pancreatichead/uncinate with abutment of the portal vein. Images were personally reviewed and interpreted. Pathology Report: FINAL DIAGNOSIS A. Pancreas, mass, biopsy: - Adenocarcinoma (see comment). Assessment/Plan Ms. 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 -Has met with Med Onc for neoadjuvant chemotherapy with [place]/Abraxane. -Recommended restaging after 6 cycles of chemo - will coordinate timing of follow up with Dr. Yusuf -Currently on cycle 2. -Will present at tumor board for review of images. Ayaz Nguyễn MD 211802/04/2025 documented in this encounterT[facility] Hospital04-10-2025 [facility]04-09-2025 NoteHNO ID: [id number] Author: ESCOBAR MENDOZA LSW Service: ? Author Type: Operations Research Scientist Type: Progress Notes Filed: 02/03/2025 15:16 Note Text: Value Based Social Work Progress Note Provider Action / FYI PCP Action none Date of Service: 01/27/2025 Patient identified by name/: Chart Review Referral Source: Referral Patient Outreach: Follow Up Mode of Outreach: none Response Time: n/a Narrative: VBSW reviewed chart. Pt and family have been receiving assistance/resources from Oncology OENOLOGIST. VBSW will defer to them for care needs. Interventions: Assessment VICKY Barboza February 03, 2025 3:15 [facility]04-09-2025 Telephone encounter Note* Telephone Encounter - Nakul Bliss - 02/03/2025 12:23 PM EDT 1st time treatment report. Spoke with patient's son, Timothy, and explained that the patient has Medicare A and B as well as [facility] Medicaid so she is covered at 100%. Told him to call me periodically to see if any assistance opens up for her pancreatic cancer. Sent Cost Facit to patient's mychart. Diagnosis: Pancreatic Cancer - C25.0...01/19/25 Doctor: Juan Miguel Yusuf MD...[id number] [facility]04-09-2025 Miscellaneous Notes* Telephone Encounter - Nakul Bliss - 02/03/2025 12:23 PM EDT 1st time treatment report. Spoke with patient's son, Timothy, and explained that the patient has Medicare A and B as well as [facility] Medicaid so she is covered at 100%. Told him to call me periodically to see if any assistance opens up for her pancreatic cancer. Sent Cost Facit to patient's mychart. Diagnosis: Pancreatic Cancer - C25.0...01/19/25 Doctor: Juan Miguel Yusuf MD...[id number] documented in this encounterTwin City Hospital04-07-2025 NoteHNO ID: [id number] Author: HENOK MARTINEZ MD Service: ? Author [...] without alteration from discharge summary. Admitted to [facility] and then transferred to [facility]. Admission Information ADMIT DATE: 01/14/2025 DISCHARGE DATE: 01/23/2025 REASON I WAS IN THE HOSPITAL: Uncontrolled diabetes, melena(GI bleed), pancreatic adenocarcinoma, obstructive jaundice, duodenal ulcer SUMMARY OF WHAT HAPPENED WHILE I WAS IN THE HOSPITAL: The patient is a pleasant 84-year-old female with history of A-fib on Eliquis and type 2 diabetes presented from [place] with pancreatic mass. 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 Admitted to [facility] and then transferred to [facility]. Admission Information ADMIT DATE: 01/14/2025 DISCHARGE DATE: 01/23/2025 REASON I WAS IN THE HOSPITAL: Uncontrolled diabetes, melena(GI bleed), pancreatic adenocarcinoma, obstructive jaundice, duodenal ulcer SUMMARY OF WHAT HAPPENED WHILE I WAS IN THE HOSPITAL: The patient is a pleasant 84-year-old female with history of A-fib on Eliquis and type 2 diabetes presented from [place] with pancreatic mass. She underwent EUS, ERCP [...] need close outpatient follow-up. She was asked tomonitor for any recurrent bleeding. She has outpatient appointment scheduled with hematology. Prior to discharge discussed risk benefits of reinitiation of antiplatelet/anticoagulation. Patientunderstanding that there is a risk of recurrent bleeding and to monitor for worsening blood in her stool or black stools. As to avoid NSAIDs. Patient agreeable to return resumption of anticoagulationplan and repeat blood work to ensure stability. She will also follow-up in the next week with her primary care doctor as well as hematology team. Patient asked to stop Eliquis if she develops any recurrent bleeding. Patient also wishes to recheck out to her industrial order clerk earlier this week to ensure that he [...] tablet Take 1 tablet by mouth once dailyfor 3 doses. (Patient not taking: Reported on [...] Reported on 01/26/2025) Blood Pressure Test Kit-Large (SURELIFE ARM BP [...] onc. Getting port placed. Doing well. 2. detention current use of anticoagulant therapy - ICD9: V58.61, ICD10: Z79.01 - gi oked resuming eliquis. Monitor for bleeding. They felt it was due to a small ulcer that had formed near her stent site. Hematology will be following labs. Reinforced need to follow with cardiology as well. Will forward note to [facility]. 3. History of CVA (cerebrovascular accident) - ICD9: V12.54, ICD10: Z86.73 - as above. 4. Type 2 diabetes mellitus with hyperglycemia, with long-term current use of insulin (HCC) - ICD9:250.00, 790.29, V58.67, ICD10: E11.65, Z79.4 - adjust [...] insulin (HCC) -ICD9: 250.00, ICD10: E11.9 - as above. 11. Hyperglycemia - ICD9: 790.29, ICD10: R73.9 - as above. 12. Gastrointestinal hemorrhage, unspecified gastrointestinal hemorrhage type - ICD9: 578.9, ICD10:K92.2 - stable. On meds. Rto in six weeks or prn. Henok Martinez MD documented in this encounterTwin City Hospital04-04-2025 Telephone encounter Note * Telephone Encounter - Addison Holley LISW - 01/29/2025 3:24 PM EDT SOCIAL WORK FOLLOW UP NOTE: CANCER CENTER [...] her mother. Print out of offices by [facility] that accept Medicaid provided to pt's daughter. A few additional resources in [facility] provided as well. SW and pt also discussed how pt is doing with adjusting to diagnosis and treatment. Daughter reports when they found out, the whole family as present and everyone lost it. Daughter describes a veryclose family, reporting she and her brother Timothy are caring for her mother. She reports they have already acquired a shower stool and walker for pt and have already made household adjustments to makethings more accessible as she continues treatment. Pt inquiring about bedside commode, SAM discussedwith daughter how to acquire one. SW answered all questions as able and provided emotional support and active listening throughout. No other needs identified at this time. PLAN: Continue follow up as needed F/U APPOINTMENT: PRN Assigned SW listed in Care Team tab: Yes JOSÉ Ferguson-Naveen [facility]04-04-2025 Miscellaneous Notes* Telephone Encounter - Addison Holley LISW - 01/29/2025 3:24 PM EDT SOCIAL WORK FOLLOW UP NOTE: CANCER CENTER Date of service: January 29, 2025 Telma Tineo is being seen for a follow up social work visit. Today's visit includes: daughter, Telma TOPICS ADDRESSED: SAM met with pt's daughter, Telma, this date. Daughter brought in FMLA forms and discussed with SW. Daughter reports she will call SW and provide work fax number to fax forms to. Daughter informed that Dr. Currie is gone for the day and forms will be completed Saturday, daughter in agreement. SW also discussed with pt additional dental resources for her mother. Print out of offices by [facility] that accept Medicaid provided to pt's daughter. A few additional resources in [facility] provided as well. SW and pt also discussed how pt is doing with adjusting to diagnosis and treatment. Daughter reports when they found out, the whole family as present and everyone lost it. Daughter describes a veryclose family, reporting she and her brother Timothy are caring for her mother. She reports they have already acquired a shower stool and walker for pt and have already made household adjustments to makethings more accessible as she continues treatment. Pt inquiring about bedside commode, SAM discussedwith daughter how to acquire one. SW answered all questions as able and provided emotional support and active listening throughout. No other needs identified at this time. PLAN: Continue follow up as needed F/U APPOINTMENT: PRN Assigned ASM listed in Care Team tab: Yes JOSÉ Ferguson-S documented in this encounterTwin City Hospital04-04-2025 Telephone encounter Note * Telephone Encounter - Sun Knowles OCCA - 01/29/2025 1:42 PM EDT TC back to Timothy who verbalized understanding that scripts sent as requested. CHAY Tolbert [facility]04-04-2025 Miscellaneous Notes* Telephone Encounter - Sun Knowles OCCA - 01/29/2025 1:42 PM EDT TC back to Timothy who verbalized understanding that scripts sent as requested. CHAY Tolbert * Telephone Encounter - Henok Martinez MD - 01/29/2025 1:33 PM EDT sent * Telephone Encounter - Sun Knowles OCCA - 01/29/2025 1:24 PM EDT [facility] 11/04/2024 NOV 02/01/2025 * Telephone Encounter - Danielle Modi - 01/29/2025 12:09 PM EDT Timothy is calling Henok Martinez MD today to request a new glucometer, test, strips, and lancets. Patient has a freestyle tolu, but it is malfunctioning and they will not get a replacement for at least 10 days. Please send to [facility] in [place] Patient has been identified by name and birthdate. Duration of symptoms: Person calling: son: Timothy Call patient at: at home [phone] (home) [phone] (cell) Was an appointment scheduled: No Closing statement: Danielle Barreto documented in this encounterTwin City Hospital04-04-2025 Telephone encounter Note * Telephone Encounter - Henok Martinez MD - 01/29/2025 1:33 PM EDT sent [facility]04-04-2025 Telephone encounter Note* Telephone Encounter - Sun Knowles OCCA - 01/29/2025 1:24 PM EDT [facility] 11/04/2024 NOV 02/01/2025 [facility]04-04-2025 Telephone encounter Note* Telephone Encounter - Danielle Modi - 01/29/2025 12:09 PM EDT Timothy is calling Henok Martinez MD today to request a new glucometer, test, strips, and lancets. Patient has a freestyle tolu, but it is malfunctioning and they will not get a replacement for at least 10 days. Please send to [facility] in [place] Patient has been identified by name and birthdate. Duration of symptoms: Person calling: son: Timothy Call patient at: at home [phone] (home) [phone] (cell) Was an appointment scheduled: No Closing statement: Danielle Barreto [facility] Work Phone: 1(696) 176-817404-03-2025 Telephone encounter Note* Telephone Encounter - Addison Holley LISW - 01/28/2025 3:02 PM EDT SOCIAL WORK FOLLOW UP NOTE: CANCER CENTER Date of service: January 28, 2025 Telma Tineo is being seen for a follow up social work visit. Today's visit includes: Timothy rayo TOPICS ADDRESSED: SAM spoke with pt's sonTimothy, this date. SAM referred to pt by RNCC d/t needing dental services however having difficulty finding a provider who will accept pt's Medicaid insurance. SAM recommended [facility] to pt's son. He reports pt does have an appointment there but that it's not for a while and they were wondering about getting her in somewhere sooner d/t risk of infection while receiving treatment. SW also recommended [facility]. Son reports they have attempted to schedule with them but they will not take Medicaid. Son reports that he will continue looking and is willing to travel to [place] or [place] with pt if needed. Sw to explore [...] in Care Team tab: Yes KANDACE Ferguson [facility]04-03-2025 Miscellaneous Notes* Telephone Encounter - Addison Holley LISW - 01/28/2025 3:02 PM EDT SOCIAL WORK FOLLOW UP NOTE: CANCER CENTER Date of service: January 28, 2025 Telma Tineo is being seen for a follow up social work visit. Today's visit includes: sonTimothy TOPICS ADDRESSED: SAM spoke with pt's sonTimothy, this date. SAM referred to pt by RNCC d/t needing dental services however having difficulty finding a provider who will accept pt's Medicaid insurance. SW recommended [facility] clinic to pt's son. He reports pt does have an appointment there but that it's not for a while and they were wondering about getting her in somewhere sooner d/t risk of infection while receiving treatment. SW also recommended [facility]. Son reports they have attempted to schedule with them but they will not take Medicaid. Son reports that he will continue looking and is willing to travel to [place] or [place] with pt if needed. Sw to explore [...] SAM listed in Care Team tab: Yes JEREMY FergusonNaveen documented in this encounterTwin City Hospital04-02-2025 NoteHNO ID: [id number] Author: ESCOBAR MENDOZA LSW Service: ? Author Type: Operations Research Scientist Type: Progress Notes Filed: 01/27/2025 15:37 Note Text: Value Based Social Work Progress Note Provider Action / FYI PCP Action none Date of Service: 01/27/2025 Patient identified by name/: No Referral Source: Referral Patient Outreach: Initial Mode of Outreach: Phone Call Response Time: Unable to reach (1st Attempt) Left message by: Voicemail VICKY Barboza January 27, 2025 3:[facility] History of Present illness Narrative* Escobar Mendoza LSW - 01/27/2025 3:36 PM EDT Value Based Social Work Progress Note Provider Action / FYI PCP Action none Date of Service: 01/27/2025 Patient identified by name/: No Referral Source: Referral Patient Outreach: Initial Mode of Outreach: Phone Call Response Time: Unable to reach (1st Attempt) Left message by: VICKY Costello January 27, 2025 3:36 PM documented in this encounterTwin City Hospital04-02-2025 History of Present illness Narrative* Maria Isabel Silveroi RN - 01/27/2025 11:34 AM EDT Patient teaching was completed over the phone. Maria Isabel Silverio,MAGNUS Table Assembler Metal Pre Chemo Patient identified by name and date of . YES Confirmed date and time for chemotherapy ? YES Other appointments (labs, imaging) discussed? 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 This nurse will update social work specialist on issueand ask for her assistance. Medication reviewed. Patient [...] patient, which included the importance of reporting anyfever of 100.4F (38.0C) or greater to the healthcare team as noted on the provided wallet card and/or magnet. YES Time Spent: 55 minutes REFERRAL (RECOMMENDATION): Social Work, Carl Holley to call later today and help them find a dentistthat will take their insurance. Maria Isabel Silverio RN documented in this encounterTwin City Hospital04-02-2025 NoteHNO ID: [id number] Author: MARIA ISABEL SILVERIO RN Service: ? Author Type: Registered Nurse Type: Progress Notes Filed: 01/27/2025 11:43 Note Text: Patient teaching was completed over the phone. Maria Isabel Silverio RN Table Assembler [employer] Pre Chemo Patient identified by name and date of . YES Confirmed date and time for chemotherapy ? YES Other appointments (labs, imaging) discussed? 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 This nurse will update social work specialist on issue and ask for her assistance. [...] will take their insurance. Maria Isabel Silverio RNChildren[facility]25 NoteHNO ID: [id number] Author: KAT CRUZ MA Service: ? Author Type: Integration Lead Type: Progress Notes Filed: 01/26/2025 14:56 Note [...] Follow-up: High risk >15% 01/27/2025 in [facility] with POLE FRAMER MACHINE [facility] - CHEMO ED 01/28/2025 in [facility] with TREATMENT RM 6 [facility] - CBC/START QMO GEMZAR ABRAXANE/D1/C1/6* 01/28/2025 in LAB [facility] MOB with LAB [facility] MOB - CBC* 02/01/2025 in [facility] with HENOK MARTINEZ [facility] discharge follow up, High risk 02/04/2025 in [facility] 3RD FLOOR with AYAZ NGUYỄN [facility] 02/05/2025 in [facility] with TREATMENT RM 8 [facility] - D8 GEMZAR ABRAXAZANE/LAB EARLY* 02/05/2025 in LAB [facility] MOB with LAB [facility] MOB - CBC* 02/12/2025 in LAB [facility] MOB with LAB [facility] MOB - CBC* 02/12/2025 in [facility] with TREATMENT RM 6 [facility] - D15 GEMZAR ABRAXANE/LAB EARLY* 02/23/2025 in LAB [facility] MOB with LAB [facility] - CBC[facility]CMP* [facility]LAB [facility]/CHEMO 02/24* [facility] 6 [facility] - QMO GEMZAR ABRAXANE/C2-6/LABANDOV 02/23* 03/03/2025 in [facility] with TREATMENT RM 9 [facility] - D8 GEMZAR ABRAXANE/LAB EARLY* 03/03/2025 in LAB [facility] MOB with LAB [facility] M[facility] - CBC* 03/10/2025 in LAB [facility] MOB with LAB [facility] MOB - CBC* 03/10/2025 in [facility] with TREATMENT RM 15 [facility] - D15 GEMZAR ABRAXAZANE/LAB EARLY* 03/23/2025 in LAB [facility] MOB with LAB [facility] MOB - CBC/CMP* 03/23/2025 in [facility] with BROOK HERNANDEZ - OV/LAB EARLY/CHEMO 03/25* [place] 03/25/2025 in [facility] with TREATMENT RM 6 [facility] - QMO GEMZAR ABRAXANE/C3-6/LABANDOV 03/23* 03/31/2025 in LAB [facility] MOB with LAB [facility] M[facility] - CBC* 03/31/2025 in [facility] with TREATMENT RM 8 [facility] - D8 GEMZAR ABRAXANE/LAB EARLY* 04/07/2025 in LAB [facility] MOB with LAB [facility] M[facility] - CBC* 04/07/2025 in [facility] GEMZAR ABRAXAZANE/LAB EARLY* Navigation Signature: Kat Cruz MA January 26, 2025 2:55 PMCTriHealth [facility]04-01-2025 History of Present illness Narrative* Kat Cruz MA - 01/26/2025 2:55 PM EDT POPULATION HEALTH NAVIGATION OUTREACH Action/FYI Spoke to [...] Follow-up: High risk >15% 01/27/2025 in [facility] with POLE FRAMER MACHINE [facility] - CHEMO ED 01/28/2025 in [facility] with TREATMENT RM 6 [facility] - CBC/START QMO GEMZAR ABRAXANE/D1/C1/6* 01/28/2025 in LAB [facility] M[facility] with LAB [facility] M[facility] - CBC* 02/01/2025 in [facility] with HENOK MARTINEZ - Hospital discharge follow up, High risk 02/04/2025 in [facility]/05/[facility]25 in [facility] with TREATMENT RM 8 [facility] - D8 GEMZAR ABRAXAZANE/LAB EARLY* 02/05/2025 in LAB [facility] MOB with LAB [facility] M[facility] - CBC* 02/12/2025 in LAB [facility] MOB with LAB [facility] MOB - CBC* 02/12/2025 in [facility] with TREATMENT RM 6 [facility] - D15 GEMZAR ABRAXANE/LAB EARLY* 02/23/2025 in LAB [facility] MOB with LAB [facility] M[facility] - CBC/CMP* 02/23/2025 in [facility] with ML HERNANDEZIANNA - OV/LAB EARLY/CHEMO 02/24* ABRAMOVICH 02/24/2025 in [facility] GEM[facility]AR ABRAXANE/C2-6/LAB&OV 02/23* [facility] D8 GEMZAR ABRAXANE/LAB EARLY* 03/03/2025 in LAB [facility] MOB with LAB [facility] - CBC* 03/10/2025 in LAB [facility] MOB with LAB [facility] - CBC* [facility] - D15 GEMZAR ABRAXAZANE/LAB EARLY* 03/23/2025 in LAB [facility] with LAB [facility] - CBC/CMP* [facility] BROOK HERNANDEZ - OV/LAB EARLY/CHEMO 03/25* ABRAMOVICH 03/25/2025 in [facility] with TREATMENT RM 6 [facility] - QMO GEMZAR ABRAXANE/C3-6/LAB&OV 03/23* 03/31/2025 in LAB [facility] MOB with LAB [facility] - CBC* 03/31/2025 in [facility] with TREATMENT RM 8 [facility] - D8 GEMZAR ABRAXANE/LAB EARLY* 04/07/2025 in LAB [facility]* 04/07[facility]20[facility] D15 GEMZAR NICOLEAZANE/LAB EARLY* Navigation Signature: Kat Cruz MA January 26, 2025 2:55 PM * Stuart Dias RN - 01/26/2025 1:18 PM EDT Transition Care Management (TCM) Initial Outreach PCP Update / Actionable Items Social Work Update / Actionable Items Please contact pt Timothy rayo ([phone]), to discuss resources for food and transportation. Thanks! Navigation Team Update / Actionable Items Please contact pt Timothy rayo ([phone]), to schedule OV with PCP for TCM [...] additional questions or concerns. Patient discharged from [facility] Discharge date: 01/23/25 Admitted for: Jaundice Readmission Risk: 20 Value-Based Contract: ACO Contact: Contact made with patient: Yes Hi, my name is Stuart Dias RN and I am calling from the [facility] on behalf of your Primary Care [...] and routed to appropriate pool: Medicare ACM [employer] Work Pool [[phone]] - Wendy KEVIN MA Follow-Up Appointment: [Appointment / TCM Follow-up within 14 days] I would like to help you schedule a hospital follow-up virtual or telephone visit with your PCP. This is a great way for you to connect with your provider to ensure you have safely transitioned home.If you are agreeable, I will send your request to a junior administrative assistant who will contact and assist you with that appointment. This will give you an opportunity to ask any questions or address any concerns youmay have with your PCP. Inform the patient that if they have any questions or concerns prior to that appointment, to call their PCP's office right away. Appointment Action: Patient desires an appointment. Complete Navigation Team box and route to appropriate pool for scheduling. Education details: Patient and family educated on issues/questions related to reason for admission,transition of care topics, and follow-up needed upon discharge. Stuart Dias RN January 26, 2025 1:28 PM [facility]25 NoteHNO ID: [id number] Author: STUART DIAS RN Service: ? Author Type: Registered Nurse Type: Progress Notes Filed: 01/26/2025 13:30 Note Text: Transition Care Management (TCM) Initial Outreach PCP Update / Actionable Items Social Work Update / Actionable Items Please contact pt Timothy rayo ([phone]), to discuss resources for food and transportation. Thanks! Navigation Team Update / Actionable Items Please contact pt Timothy rayo ([phone]), to schedule OV with PCP for TCM f/u. Readmission Risk-20% High Risk-schedule within 7 days. Thanks! HRTIC TCM Home Visit Referral Source of Stratification: [facility] Hospital Admission Status: Discharged Readmission [...] additional questions or concerns. Patient discharged from [facility] Discharge date: 01/23/25 Admitted for: Jaundice Readmission Risk: 20 Value-Based Contract: ACO Contact: Contact made with patient: Yes Hi, my name is Stuart Dias RN and I am calling from the [facility] on behalf of your Primary Care [...] to appropriate pool: Medicare ACM Social Work [place] [[phone]] - Wendy KEVIN MA Follow-Up Appointment: [Appointment / TCM Follow-up within 14 days] I would like to help you schedule a hospital follow-up virtual or telephone visit with your PCP. This is a great way for you to connect with your provider to ensure you have safely transitioned home. If you are agreeable, I will send your request to a junior administrative assistant who will contact and assist you with [...] pool for scheduling. E (more content not included)...[facility]04-01-2025 Telephone encounter Note* Telephone Encounter - Li Allison MA - 01/26/2025 10:58 AM EDT Detailed message left for Timothy informing him to have Telma try otc miralax for 2 days and to call with worsening symptoms. Advised him to call back with any questions or concerns. Li Allison MA [facility]04-01-2025 Miscellaneous Notes* Telephone Encounter - Li Allison MA - 01/26/2025 10:58 AM EDT Detailed message left for Timothy informing him to have Telma try otc miralax for 2 days and to call with worsening symptoms. Advised him to call back with any questions or concerns. Li Allison MA * Telephone Encounter - Li Allison MA - 01/26/2025 10:56 AM EDT Images from the original note were not included. Henok Martinez MD [facility] Pool4 minutes ago (10:52 AM) Try miralax daily otc first. Call if no results in 2 Days or if anything worsens * Telephone Encounter - Li Allison MA - 01/26/2025 10:46 AM EDT Spoke with Timothy, patients son. Telma denies [...] Denies any vomiting. Has not used anything OTCfor this as of yet. Advise. Li Allison MA * Telephone Encounter - Li Allison MA - 01/26/2025 10:43 AM EDT Images from the original note were not included. Henok Martinez MD [facility] Pool2 minutes ago (10:40 AM) Any pain or vomiting. What was last bm? Are they using anything at all right now? * Telephone Encounter - Johnna Medina LPN - 01/26/2025 10:13 AM EDT Pt's son calls to report that since [...] advise. Johnna Medina LPN documented in [facility]04-[facility] Telephone encounter Note * Telephone Encounter - Li Allison MA - 01/26/2025 10:56 AM EDT Images from the original note were not included. Henok Martinez MD [facility] Pool4 minutes ago (10:52 AM) Try miralax daily otc first. Call if no results in 2 Days or if anything worsens [facility]04-01-2025 Telephone encounter Note* Telephone Encounter - Li Allison MA - 01/26/2025 10:46 AM EDT Spoke with Timothy, patients son. Telma denies [...] Denies any vomiting. Has not used anything OTCfor this as of yet. Advise. Li Allison MA [facility]04-01-2025 Telephone encounter Note* Telephone Encounter - Li Allison MA - 01/26/2025 10:43 AM EDT Images from the original note were not included. Henok Martinez MD [facility] Pool2 minutes ago (10:40 AM) Any pain or vomiting. What was last bm? Are they using anything at all right now? [facility]04-01-2025 Telephone encounter Note* Telephone Encounter - Johnna Medina LPN - 01/26/2025 10:13 AM EDT Pt's son calls to report that since [...] Please review and advise. Johnna Medina LPN [facility]04-01-2025 NotePatient Outreach (AMBCMG) TELMA TINEO ([id number]) 1940 F Date Time Provider Department 01/26/25 STUART DIAS [facility] During your visit today, we recorded the following information about you: Stuart Dias, RN 01/26/2025 1:30 PM Signed Transition Care Management (TCM) Initial Outreach PCP Update / Actionable Items Social Work Update / Actionable Items Please contact pt sonTimothy ([phone]), to discuss resources for food and transportation. Thanks! Navigation Team Update / Actionable Items Please contact pt sonTimothy ([phone]), to schedule OV with PCP for TCM [...] additional questions or concerns. Patient discharged from [facility] Discharge date: 01/23/25 Admitted for: Jaundice Readmission Risk: 20 Value-Based Contract: ACO Contact: Contact made with patient: Yes Hi, my name is Stuart Dias RN and I am calling from the [facility] on behalf of your Primary Care [...] and routed to appropriate pool: Medicare ACM [employer] Work Pool [[id number]] - Wendy KEVIN MA Follow-Up Appointment: [Appointment / TCM Follow-up within 14 days] I would like to help you schedule a hospital follow-up virtual or telephone visit with your PCP. This is a great way for you to connect with your provider to ensure you have safely transitioned home. If you are agreeable, I will send your request to a junior administrative assistant who will contact and assist you with that appointment. This will give you an opportunity to ask any questions or address any concerns you may have with your PCP. Inform the patient that if they have any questions or concerns prior to that appoin (more content not included)...[facility]03-31-2025 Telephone encounter Note* Telephone Encounter - Nasim Fragoso - 01/25/2025 3:12 PM EDT This has been scheduled as directed [facility]03-31-2025 Miscellaneous Notes* Telephone Encounter - Nasim Fragoso - 01/25/2025 3:12 PM EDT This has been scheduled as directed * Telephone Encounter - Rachel Bañuelos - 01/25/2025 9:14 AM EDT Labs today-DONE Chemo Education-SCHEDULED 01/27 Start [place]/Abraxane, straight back to start with CBC (3wks on/1 wk off) CBC with each treatment CBC/CMP/OV with each Q 28 cycle Start treatment this week if possible per Elaina documented in this encounterT[facility]03-31-2025 Telephone encounter Note * Telephone Encounter - Rachel Bañuelos - 01/25/2025 9:14 AM EDT Labs today-DONE Chemo Education-SCHEDULED 01/27 Start [place]/Abraxane, straight back to start with CBC (3wks on/1 wk off) CBC with each treatment CBC/CMP/OV with each Q cycle Start treatment this week if possible per Elaina [facility]03-31-2025 Telephone encounter Note* Telephone Encounter - Maria Isabel Silverio RN - 01/25/2025 9:11 AM EDT Met with patient and introduced myself. Patient was given a My Journey binder with chemocare information, office contact information, thermometer, and additional chemotherapy resource booklets. Patient aware this nurse will review on scheduled appointment date. Elaina Silverio RN [facility] Work Phone: [phone] Miscellaneous Notes* Telephone Encounter - Maria Isabel Silverio RN - 01/25/2025 9:11 AM EDT Met with patient and introduced myself. Patient was given a My Journey binder with chemocare information, office contact information, thermometer, and additional chemotherapy resource booklets. Patient aware this nurse will review on scheduled appointment date. Elaina Silverio RN documented in this encounterTwin City Hospital03-31-2025 Telephone encounter Note * Telephone Encounter - Nasim Fragoso - 01/25/2025 9:08 AM EDT This pt is scheduled. Nasim Fragoso [facility]03-31-2025 Miscellaneous Notes* Telephone Encounter - Nasim Fragoso - 01/25/2025 9:08 AM EDT This pt is scheduled. Nasim Fragoso * Telephone Encounter - Amarilys Niño DO - 01/24/2025 12:[address] Freeman referring her for new diagnosis of pancreas cancer. Next new patient appointment with either me or Dr. Yusuf. Amarilys Niño DO documented in this encounterTwin City [facility]03-31-2025 NoteHNO ID: [id number] Author: JUAN MIGUEL YUSUF MD Service: ? Author Type: Physician Type: Progress Notes Filed: 01/25/2025 11:44 Note Text: HISTORY OF PRESENT ILLNESS: Telma Tineo is a 84 year old female presented with painless jaundice, admitted initially at [facility], transferred for further work up at [facility]. Saw hepatobiliary surgery there, noted pancreatic mass. [...] times a day. Blood Pressure Test Kit-Large (AmulyteLIFE ARM BP MONITOR) 1 Each once daily. REVIEW OF SYSTEMS: GENERAL: No fever, night sweats, weight loss or malaise. All other reviewed and negative other than HPI. PHYSICAL EXAMINATION: VITAL SIGNS: BP 133/74 Pulse 110 Temp (Src) 99 (Temporal) Ht 5' .039 (1.53m) Wt 150 lb (68.0kg) SpO2 99% BMI 29.26 kg/(m2). GENERAL APPEARANCE: Well (more content not included)...[facility]03-31-2025 History of Present illness Narrative* Juan Miguel Yusuf MD - 01/25/2025 8:35 AM EDT HISTORY OF PRESENT ILLNESS: Telma Tineo is a 84 year old female presented with painless jaundice, admitted initially at [facility], transferred for further work up at [facility]. Saw hepatobiliary surgery there, noted pancreatic mass. She underwent CBD stenting, and biopsy of mass at headof pancreas. Dx adenocarcinoma. Staging otherwise negative. Per [...] tablet Take 1 tablet by mouth once dailyfor 3 doses. (Patient not taking: Reported on [...] which included preparing to see the patient, [id number] patient care, completing clinical documentation, obtaining and/or reviewing separately obtained history, counseling and educating the patient/family/caregiver, ordering medications, nicko ts, or procedures, communicating with other HCPs (not separately reported), independently interpreting results (not separately reported), communicating results to the patient/family/caregiver, and care coordination (not separately reported). Electronically Signed: Juan Miguel Yusuf MD January 25, 2025 8:35 AM documented in this encounterT[facility]03-30-2025 Telephone encounter Note * Telephone Encounter - Amarilys Niño DO - 01/24/2025 12:[address] Freeman referring her for new diagnosis of pancreas cancer. Next new patient appointment with either me or Dr. Yusuf. Amarilys Niño DO [facility] Work Phone: [phone] 131-271603-29-2025 [facility]03-28-2025 [facility]03-[facility] 01-21-2025 [facility]03-27-2025 Telephone encounter Note* Telephone Encounter - Nasim Fragoso - 01/21/2025 3:00 PM EDT Spoke w pt, she is hoping to be d/c today, she is schedule at 830am on Thursday 01/[address] Yusuf.Ok per nurse. Nasim Fragoso [facility]03-27-2025 Miscellaneous Notes* Telephone Encounter - Nasim Fragoso - 01/21/2025 3:00 PM EDT Spoke w pt, she is hoping to be d/c today, she is schedule at 830am on Thursday 01/[address] Yusuf.Ok per nurse. Nasim Fragoso * Telephone Encounter - Azra Zuniga LPN - 01/21/2025 2:[address] EDT Spoke with Dr. Yusuf, he will see this pt. PSS please reach out to pt. To get scheduled. Per Dr. Arroyo You can use multiple slots that are equal to 60 mins for scheduling New pt. Azra Zuniga LPN * Telephone Encounter - Guerline Bean - 01/21/2025 2:17 PM EDT Received email from Dr Freeman advising below: Patient above was seen at [facility] for obstructive jaundice. 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 She lives in [place]- in fact, she was transferred from [facility]. She is believed to have localized disease, but given her age of 84, patient is unsure whether she would pursue aggressive treatment. Ivy placed a referral to Hematology/Oncology at [place], and am emailing you here in the hopes of expediting scheduling of her appointment. We did discuss options of neoadjuvant chemotherapy as wellas hospice. Of note, patient is also scheduled to see our surgical oncologist Dr. Nguyễn in early January. Please review and advise! Dr Yusuf and Dr Niño were also copied on this email * Telephone Encounter - Ashutosh Freeman MD - 01/21/2025 1:40 PM EDT Entered referral for oncology follow-up at [place]. documented in this encounterT[facility]03-27-2025 Telephone encounter Note * Telephone Encounter - Azra Zuniga LPN - 01/21/2025 2:40 PM EDT Spoke with Dr. Yusuf, he will see this pt. PSS please reach out to pt. To get scheduled. Per Dr. Arroyo You can use multiple slots that are equal to 60 mins for scheduling New pt. Azra Zuniga LPN [facility]03-27-2025 Telephone encounter Note* Telephone Encounter - Guerline Bean - 01/21/2025 2:17 PM EDT Received email from Dr Freeman advising below: Patient above was seen at [facility] for obstructive jaundice. 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 She lives in [place]- in fact, she was transferred from [facility]. She is believed to have localized disease, but given her age of 84, patient is unsure whether she would pursue aggressive treatment. Ivy placed a referral to Hematology/Oncology at [place], and am emailing you here in the hopes of expediting scheduling of her appointment. We did discuss options of neoadjuvant chemotherapy as wellas hospice. Of note, patient is also scheduled to see our surgical oncologist Dr. Nguyễn in early January. Please review and advise! Dr Yusuf and Dr Niño were also copied on this email [facility]03-27-2025 Telephone encounter Note* Telephone Encounter - Ashutosh Freeman MD - 01/21/2025 1:40 PM EDT Entered referral for oncology follow-up at [place]. [facility]03-26-2025 [facility]03-26-2025 Telephone encounter Note* Telephone Encounter - Shabnam Ruiz LPN - 01/20/2025 2:11 PM EDT Notified Timothy. [facility]03-26-2025 Miscellaneous Notes* Telephone Encounter - Shabnam Ruiz LPN - 01/20/2025 2:11 PM EDT Notified Timothy. * Telephone Encounter - Henok Martinez MD - 01/20/2025 10:27 AM EDT Rx sent * Telephone Encounter - Dahlia Guevara - 01/19/2025 1:37 PM EDT girma Aguirre called again and he stated that [facility] told him they can no longer bill medicare for diabetic CGM. They told him to have the prescriptions sent to [facility]. Please notify Timothy once sent. * Telephone Encounter - Henok Martinez MD - 01/19/2025 11:50 AM EDT Let them know rx sent. If there is anything else we can do please let us know * Telephone Encounter - Dahlia Guevara - 01/19/2025 11:16 AM EDT Telma is a patient of Henok Martinez MD today girma Aguirre called and stated his mother is currently in the hospital and the doctor at the hospital is requesting PCP order the Tolu 3 CGM system. Please send to [facility]. Please notify son once completed. Patient has been identified by name and birthdate. Duration of symptoms: N/A Person calling: son: Timothy Call patient at: on cell Was an appointment scheduled: No Closing statement: Results or non-symptom based questions: Thank you for calling [facility], your call will be returned within the next business day. Dahlia Barreto documented in this encounterTwin City Hospital03-26-2025 [facility]03-26-2025 [facility]03-26-2025 Telephone encounter Note* Telephone Encounter - Henok Martinez MD - 01/20/2025 10:27 AM EDT Rx sent [facility]03-26-2025 [facility]03-25-2025 Telephone encounter Note* Telephone Encounter - Dahlia Guevara - 01/19/2025 1:37 PM EDT girma Aguirre called again and he stated that [facility] told him they can no longer bill medicare for diabetic CGM. They told him to have the prescriptions sent to [facility]. Please notify Timothy once sent. [facility]03-25-2025 [facility]03-25-2025 Telephone encounter Note* Telephone Encounter - Henok Martinez MD - 01/19/2025 11:50 AM EDT Let them know rx sent. If there is anything else we can do please let us know [facility]03-25-2025 Telephone encounter Note* Telephone Encounter - Dahlia Guevara - 01/19/2025 11:16 AM EDT Telma is a patient of Henok Martinez MD today girma Aguirre called and stated his mother is currently in the hospital and the doctor at the hospital is requesting PCP order the Tolu 3 CGM system. Please send to [facility]. Please notify son once completed. Patient has been identified by name and birthdate. Duration of symptoms: N/A Person calling: son: Timothy Call patient at: on cell Was an appointment scheduled: No Closing statement: Results or non-symptom based questions: Thank you for calling [facility], your call will be returned within the next business day. Dahlia Barreto [facility]03-24-2025 [facility]03-23-2025 [facility]03-22-2025 [facility]03-22-2025 Note [facility]03-21-2025 [facility] 01-15-2025 [facility]03-20-2025 [facility] Medical Records Department [address] [place] [address] Discharge Summary 01/14/25 1707 MR#: [id number] Acct: [id number] Name: TELMA TINEO Rep #: [id number] : 1940 84 From: Jose Jazmin CLARK PCP: Dr. Henok Martinez MD Status:DIS IN Location: [place] [address]1 Providers Date of Admission: 01/10/25 Date of Discharge: 01/14/25 Primary Care Physician: Dr. Henok Martinez MD Consultations 01/10/25 06:51 Consult: Gastroenterology Routine Consulting Provider: [facility] Reason for Consult: Pancreatic head mass [...] was seen in the emergency room at [facility] with complaints of discoloration of her djlt-zkxdra-rpr yellowing of her eyes. Patient states her [...] transferred to tertiary facility for further care, [facility] agreed to accept the patient but had no beds at the time and so the patient was admitted to [place] [address]. She was seen in consultation by gastroenterology [...] Nutrition Assessment Dietitian: Malnutrition (more content not included)...[facility] 01-14-2025 Progress note Author Jose Wu [facility] Note Date/Time January 14, 2025 8:2 3am [facility] Medical Records Department [address] [place] [address] Progress Note - Hospitalist 01/14/25 0821 MR#: [id number] Acct: [id number] Name: TELMA TINEO Rep #:[id number] : 1940 84 From: Jose Wu DO PCP: Dr. Henok Martinez MD Status:ADM I N Location: [place] [address] Reason for Visit Reason for Visit: Diagnoses [...] received approval for her to betransferred to [facility] for further care at this time [...] 01/13/25 15:38 SB (Rec: 01/13/25 15:38 SB [id number]) Nutrition Malnutrition Evidence of Yes Malnutrition Exists [...] of Glucerna shake 3 times daily with Beroomers was ordered Total clinical time spent by myself addressing the patient's medical issues, reviewing all of her data, and collaborating with patient's care team: 35 minutes Charges/Coding Visit Charges Inpatient E&M: 99839 Subs Hosp L2 01/14/25 0823 <Electronically signed by Jose Wu DO> Cosigner Signature (if applicable): CC: ~ Signed [facility] Work Phone: 1(835) 753-417803-20-2025 Progress note [facility] Medical Records Department [address] [place] [address] Progress Note - Hospitalist 01/14/25 08 MR#: [id number] Acct: [id number] Name: TELMA TINEO Rep #:[id number] : 1940 84 From: Jose Wu DO PCP: Dr. Henok Martinez MD Status:ADM I N Location: [place] [address] Reason for Visit Reason for Visit: Diagnoses [...] received approval for her to betransferred to [facility] for further care at this time [...] 01/13/25 15:38 SB (Rec: 01/13/25 15:38 SB [id number]) Nutrition Malnutrition Evidence of Yes Malnutrition Exists [...] 35 minutes Charges/Coding Visit Charges Inpatient E&M: 98669 Subs Hosp L2 01/14/25 0861 Cosigner Signature (if applicable): CC: ~ Signed [facility]03-19-2025 Progress note Author Jose Wu [facility] Note Date/Time January 13, 2025 9:3 8am [facility] Medical Records Department [address] [place] [address] Progress Note - Hospitalist 01/13/25 0936 MR#: [id number] Acct: [id number] Name: TELMA TINEO Rep #:[id number] : 1940 84 From: Jose Wu DO PCP: Dr. Henok Martinez MD Status:ADM I N Location: [place] [address] Reason for Visit Reason for Visit: Diagnoses [...] 01/10/25 12:40 SB (Rec: 01/10/25 12:40 SB [id number]) Nutrition Malnutrition Evidence of Yes Malnutrition Exists [...] advanced, order 120ml glucerna shake TID with [employer]. Will consult CAR REPOSSESSOR d/t pt reporting difficulty chewing/ swallowing foods. [...] Fluoroscopic services provided for ERCP. Reading Location: [place] [address] Physical Exam Narrative alert, oriented x3, no [...] Glucerna shake 3 times daily with med AlephD was ordered Total clinical time spent by myself addressing the patient's medical issues, reviewing all of her data, and collaborating with patient's care team: 35 minutes Charges/Coding Visit Charges Inpatient E&M: 96557 Subs Hosp L2 01/13/25 0938 <Electronically signed by Jose Wu DO> Cosigner Signature (if applicable): CC: ~ Signed [facility] Work Phone: [phone]) 626-352903-19-2025 Progress note [facility] Medical Records Department [address] [place] [address] Progress Note - Hospitalist 01/13/25 0936 MR#: [id number] Acct: [id number] Name: TELMA TINEO Rep #:[id number] : 1940 84 From: Jose Wu DO PCP: Dr. Henok Martinez MD Status:ADM I N Location: [place] [address] Reason for Visit Reason for Visit: Diagnoses [...] 01/10/25 12:40 SB (Rec: 01/10/25 12:40 SB [id number]) Nutrition Malnutrition Evidence of Yes Malnutrition Exists [...] glucerna shake TID with medpass. Will consult CAR REPOSSESSOR d/t pt reporting difficulty chewing/ swallowing foods. [...] Fluoroscopic services provided for ERCP. Reading Location: [place] [address] Physical Exam Narrative alert, oriented x3, no [...] 35 minutes Charges/Coding Visit Charges Inpatient E&M: 41031 Subs Hosp L2 01/13/25 0938 Cosigner Signature (if applicable): CC: ~ Signed [facility]03-18-2025 Progress note Author Jose Wu [facility] Note Date/Time January 12, 2025 5:0 4pm [facility] Medical Records Department [address] [place] [address] Progress Note - Hospitalist 01/12/25 1700 MR#: [id number] Acct: [id number] Name: TELMA TINEO Rep #:[id number] : 1940 84 From: Jose Wu DO PCP: Dr. Henok Martinez MD Status:ADM I N Location: [place] [address] Reason for Visit Reason for Visit: Diagnoses [...] today, she underwent an ERCP but the referral rn was unable to cannulate the common bile duct. I talked to the patient's daughter was in the room at the time my examination, I offered to check [facility] to see if they have any beds available, she consented to this but [facility] told me that they are backed up [...] 01/10/25 12:40 SB (Rec: 01/10/25 12:40 SB [id number]) Nutrition Malnutrition Evidence of Yes Malnutrition Exists [...] glucerna shake TID with medpass. Will consult CAR REPOSSESSOR d/t pt reporting difficulty chewing/ swallowing foods. [...] Fluoroscopic services provided for ERCP. Reading Location: [facility] Physical Exam Narrative alert, oriented x3, no [...] 35 minutes Charges/Coding Visit Charges Inpatient E&M: 98093 Subs Hosp L2 01/12/25 1704 <Electronically signed by Jose Wu DO> Cosigner Signature (if applicable): CC: ~ Signed [facility] Work Phone: 1(364) 677-100203-18-2025 Progress note [facility] Medical Records Department [address] [place] [address] Progress Note - Hospitalist 01/12/25 1700 MR#: [id number] Acct: [id number] Name: TELMA TINEO Rep #:[id number] : 1940 84 From: Jose Wu DO PCP: Dr. Henok Martinez MD Status:ADM I N Location: [place] [address] Reason for Visit Reason for Visit: Diagnoses [...] today, she underwent an ERCP but the referral rn was unable tocannulate the common bile duct. I talked to the patient's daughter was in the room at the time my examination, I offered to check [facility] to see if they have any beds available, she consented to this but [facility] told me that they are backed up [...] 01/10/25 12:40 SB (Rec: 01/10/25 12:40 SB [id number]) Nutrition Malnutrition Evidence of Yes Malnutrition Exists [...] glucerna shake TID with medpass. Will consult CAR REPOSSESSOR d/t pt reporting difficulty chewing/ swallowing foods. [...] Fluoroscopic services provided for ERCP. Reading Location: [place] [address] Physical Exam Narrative alert, oriented x3, no [...] Glucerna shake 3 times daily with med AlephD was ordered Total clinical time spent by myself addressing the patient's medical issues, reviewing all of her data, and collaborating with patient's care team: 35 minutes Charges/Coding Visit Charges Inpatient E&M: 61041 Subs Hosp L2 01/12/25 1704 Cosigner Signature (if applicable): CC: ~ Signed [facility]03-18-2025 Consult note Author José Escobar [facility] Note Date/Time January 12, 2025 2:0 8pm [facility] Medical Records Department [address] [place] [address] Anesthesia Postop Eval II 01/12/25 1408 MR#: [id number] Acct: [id number] Name: TELMA TINEO Rep #:[id number] : 1940 84 From: José Escobar MD PCP: Dr. Henok Martinez MD Status:ADM I N Y Race: H Location: [facility] MS304 -1 Anesthesia Postop Eval I Sum Postop Eval Completion status Anesthesia document: Postop Eval 1 completed: Yes Anesthesia Postop Eval I Summary Anesthesia Postop Eval I Summary: Anesthesia Postop Eval I: Assessment Summary Airway patent Yes 01/12/25 13:48 ADMISSIONS [email or web address].[email or web address] Spontaneous unlabored Yes 01/12/25 13:48 ADMISSIONS CLERK.[email or web address] respirations Mental status nausea No 01/12/25 13:48 ADMISSIONS CLERK.TNES Vomiting No 01/12/25 13:48 ADMISSIONS CLERK.[email or web address] Anesthesia Postop Eval I: Fluid Summary Crystalloid volume administer 1,000 01/12/25 13:48 ADMISSIONS CLERK.TNES (ml) Colloids volume administered ( ml) Blood Product volume administered (ml) Total IV fluid infused 1,000 01/12/25 13:48 ADMISSIONS CLERK.TNES Anesthesia Postop Eval I: Summary Notes Anesthesia Complication No 01/12/25 13:48 ADMISSIONS CLERK.TNES Anesthesia Complication Comment: Post-operative progress note Anesthesia: Postop Eval II Evaluation Mental status: Awake Pain Level: 0 nausea: No Vomiting: No Complications Anesthesia Complication: No 01/12/25 1408 <Electronically signed by José Escobar MD> Date _ José Escobar MD Cosigner Signature: Date CC: ~ Signed [facility] Work Phone: 1(953) 350-764403-18-2025 Consult note Author Jr Kamara [facility] Note Date/Time January 12, 2025 1:4 8pm [facility] Medical Records Department [address] [place] [address] Anesthesia Postop Eval I 01/12/25 1348 MR#: [id number] Acct: [id number] Name: TELMA TINEO Rep #:[id number] : 1940 84 From: Jr RODAS PCP: Dr. Henok Martinez MD Status:ADM I N Y Race: H Location: [place] [address] Anesthesia: Postop Eval I Current Vital Signs Temperature: 97.7 F Pulse Rate: 81 Blood Pressure: 143/77 Respiratory Rate: 16 Pulse Ox: 96 Assessment Airway patent: Yes Spontaneous unlabored respirations: Yes nausea: No Vomiting: No Anesthesia Complication: No Fluid Hydration Crystalloid volume administer (ml): 1,000 Total IV fluid infused: 1,000 Progress Note Anesthesia document: Postop Eval 1 completed: Yes 01/12/25 1348 <Electronically signed by Jr Kamara CRNA> Date _ Jrabel RamirezAnh ADMISSIONS CLERK Cosigner Signature: Date CC: ~ Signed [facility] Work Phone: 1(480) 259-923803-18-2025 Radiology Diagnostic study note [facility] Imaging Services [address] [place] [address] ERCP Biliary/Pancreas MR#: [id number] Acct: [id number] Name: TELMA TINEO Rep #: [id number] : 1940 F 84 From: Maynor Rosario MD PCP: Dr. Henok Martinez MD Status: ADM I N Study:ERCP Biliary/Pancreas Date of Exam: 01/12/25 Exam# [id number] Ordering Dr: Dylan Brown DO PROCEDURE: ERCP BILIARY/PANCREAS 01/12/2025 REASON FOR EXAM: PAIN. ERCP WITH SPY? TECHNIQUE: Fluoroscopic services provided for ERCP. Fluoroscopic time: 110.7 seconds 22.5 mGy 3 images were submitted. COMPARISON: None. FINDINGS: The referral rn performed the ERCP. Fluoroscopic imaging provided. RAD/ERCP Biliary/Pancreas IMPRESSION: Fluoroscopic services provided for ERCP. Reading Location: [place] [address] CC: Dr. Henok Martinez MD; Mohit Brown DO ~ Seam Steamer: Signed [facility]03-18-2025 Consult note [facility] Medical Records Department [address] [place] [address] Anesthesia Postop Eval II 01/12/25 1408 MR#: [id number] Acct: [id number] Name: TELMA TINEO Rep #:[id number] : 1940 84 From: José Escobar MD PCP: Dr. Henok Martinez MD Status:ADM I N Y Race: H Location: [place] [address] Anesthesia Postop Eval I Sum Postop Eval Completion status Anesthesia document: Postop Eval 1 completed: Yes Anesthesia Postop Eval I Summary Anesthesia Postop Eval I Summary: Anesthesia Postop Eval I: Assessment Summary Airway patent Yes 01/12/25 13:48 ADMISSIONS [email or web address].[email or web address] Spontaneous unlabored Yes 01/12/25 13:48 ADMISSIONS CLERK.TNES respirations Mental status nausea No 01/12/25 13:48 ADMISSIONS CLERK.TNES Vomiting No 01/12/25 13:48 ADMISSIONS CLERK.TNES Anesthesia Postop Eval I: Fluid Summary Crystalloid volume administer 1,000 01/12/25 13:48 ADMISSIONS CLERK.TNES (ml) Colloids volume administered ( ml) Blood Product volume administered (ml) Total IV fluid infused 1,000 01/12/25 13:48 ADMISSIONS CLERK.TNES Anesthesia Postop Eval I: Summary Notes Anesthesia Complication No 01/12/25 13:48 ADMISSIONS CLERK.TNES Anesthesia Complication Comment: Post-operative progress note Anesthesia: Postop Eval II Evaluation Mental status: Awake Pain Level: 0 nausea: No Vomiting: No Complications Anesthesia Complication: No 01/12/25 1408 > Date _ José Escobar MD Cosigner Signature: Date CC: ~ Signed [facility]03-18-2025 Progress note Author Mohit Friend [facility] Note Date/Time January 12, 2025 12: 02pm [facility] Medical Records Department [address] [place] [address] Progress Note 01/12/25 1200 MR#: [id number] Acct: [id number] Name: TELMA TINEO Rep #:[id number] : 1940 84 From: Mohit Brown DO PCP: Dr. Henok Martinez MD Status:ADM I N Location: [place] [address] Progress Note Patient has been n.p.o. for [...] diabetes mellitus with hyperglycemia: QUALIFIERS: Diabetes mellitus director long term care insulin use: without director long term care use Qualified Code(s): E11.65 - Type 2 [...] 01/12/25 at 1202 Visit Charges Inpatient E&M: 66775 Subs Hosp L1 01/12/25 1202 <Electronically signed by Mohit farmer DO> Date _ Mohit Brown DO Cosigner Signature (if applicable): Date cc: ~* Signed [facility] Work Phone: 1(364) 495-662103-18-2025 Consult note [facility] Medical Records Department [address] [place], [place] [address] [address] Anesthesia Postop Eval I 01/12/25 1348 MR#: [id number] Acct: [id number] Name: TELMA TINEO Rep #:[id number] : 1940 84 From: Jr RODAS PCP: Dr. Henok Martinez MD Status:ADM I N Y Race: H Location: [place] [address] Anesthesia: Postop Eval I Current Vital Signs Temperature: 97.7 F Pulse Rate: 81 Blood Pressure: 143/77 Respiratory Rate: 16 Pulse Ox: 96 Assessment Airway patent: Yes Spontaneous unlabored respirations: Yes nausea: No Vomiting: No Anesthesia Complication: No Fluid Hydration Crystalloid volume administer (ml): 1,000 Total IV fluid infused: 1,000 Progress Note Anesthesia document: Postop Eval 1 completed: Yes 01/12/25 1348 ADMISSIONS CLERK> Date _ Jr Kamara ADMISSIONS CLERK Cosigner Signature: Date CC: ~ Signed [facility]03-18-2025 Procedure note [facility] Medical Records Department [address] [place] [address] ERCP Report MR#: [id number] Acct: [id number] Name: TELMA TINEO Rep #:[id number] : 1940 84 From: Mohit Brown DO [...] hour 8 minutes 42 seconds Findings: The pharmacist helper film was normal. The bile duct could not be cannulated with the short-nosed traction sphincterotome. No biopsies or other specimens were collected for this exam. Impression: - No specimens collected. Procedure Code(s): --- Professional --- 08213, Esophagogastroduodenoscopy, flexible, transoral; diagnostic, including collection of specimen(s) by brushing or washing, when performed (separate procedure) CPT copyright 2021 [employer]. All rights reserved. The codes documented in this report are preliminary and upon casting machine service operator review may be revised to meet current compliance requirements. Mohit Brown DO 01/12/2025 1:41:52 PM This report has been signed electronically. Number of Addenda: 0 Note Initiated On: 01/12/2025 11:51 AM 01/12/25 1342 Date _ Mohit Brown DO Cosigner Signature: Date (if indicated) CC: Dr. Henok Martinez MD; Mohit Brown DO ~ Date Dictated: 01/12/25 1151 Date Transcribed: Seam Steamer: RF Signed [facility]03-18-2025 Procedure note [facility] Medical Records Department [address] [facility] [address] Operative Report - CC Letter MR#: [id number] Acct: [id number] Name: TELMA TINEO Rep #:[id number] : 1940 84 From: Mohit Brown DO PCP: Dr. Henok Martinez MD Status:ADM I N 01/12/2025 Henok Michelle Re : ERCP procedure for Telma Martinez This procedure was performed on Sunday, January 12, 2025. My impressions and recommendations are as follows: Impressions : - No specimens collected. Recommendations : My findings are described in the full procedure note, which is enclosed. If I can be of further assistance, please feel free to contact me at . Sincerely, Moiht Brown DO 01/12/2025 1:41:52 PM This report has been signed electronically. 01/12/25 1342 Date _ Mohit Crawfordignjose Signature: Date (if indicated) CC: Dr. Oniel Golden DO; Dr. Keenan Celeste DO; Dr. Jose Wu DO; Dr. Henok Martinez MD ~ Date Dictated: 01/12/25 1151 Date Transcribed: Seam Steamer: MARTHA Hale [facility]03-18-2025 Consult note Author José Escobar [facility] Note Date/Time January 12, 2025 11: 00am [facility] Medical Records Department [address] [place] [address] Pre-Anesthesia Evaluation 01/12/25 1049 MR#: [id number] Acct: [id number] Name: TELMA TINEO Rep #:[id number] : 1940 84 From: José Escobar MD PCP: Dr. Henok Martinez MD Status:ADM I N Y Race: H Location: [place] [address] ASA Classification* ASA Classification ASA Classification: 4 [...] 01/12/25 TSH 2.180 uIU/mL (0.300-4.200) 01/10/25 05:19 0304/21 COAG PT 12.8 SECONDS (11.7-14.9) 01/09/25 19:21 Pre-Assessment Diagnosis/Proposed Procedure Planned Operative Procedure(s): ERCP Anesthesia History Anesthesia History - pension adviser: Anesthesia History - pension adviser Hx Hospitalization Any Problems With Anesthesia No [...] take am of surgery PONV PONV - pension adviser: PONV - pension adviser Female HX of Motion Sickness HX of N/V After Surgery Non-Smoker Duration of Surgery greater than 60 minutes Number of Risk Factors PONV Score Height & Weight Height & Weight: Anesthesia: Height & Weight Height 5 ft 01/12/25 08:02 Weight: 67.2 kg 01/12/25 08:02 Body Mass Index (BMI) 28.9 01/12/25 08:02 Respiratory Assessment Respiratory Assessment - pension adviser: Respiratory Tract Infection Hx - pension adviser Hx Respiratory Tract Infection No 01/11/25 21:37 STOP Sleep Apnea STOP Sleep Apnea - pension adviser: STOP Sleep Apnea - pension adviser Hx Hypertension Yes 01/11/25 11:23 Hx Sleep [...] Tobacco Use History Tobacco Use History - pension adviser: Tobacco Use History - pension adviser Tobacco Use Smoking Status Former smoker 01/10/25 02:58 Hx Tobacco Use No 01/10/25 02:58 Years Smoking Packs Smoked per Day Smoking Cessation Date was No - quit smoking greater 01/10/25 02:58 within the last 15 years than 15 years ago Hx Smoking Cessation Date 10/28/77 01/10/25 02:58 Hx Smoking Cessation No 01/10/25 02:58 Counseling Hematologic Medial History Hematologic Hx - pension adviser: Hematologic Medical Hx - documentation specialist Hx of Blood Transfusion No 01/10/25 02:58 [...] confused, unrespo /Reproduction History /Reproductive History - pension adviser: /Reproductive Hx- pension adviser Hx Now No 01/11/25 21:37 Gestational Age [...] 10 Mg Tablet PO Not Given DAILY [facility] Protocol Enoxaparin Sodium 40 mg 01/10/25 10:00 01/12/25 07:28 Enoxaparin 40 Mg/0.4 Ml Syringe SC Not Given DAILY [facility] Glucagon 1 mg 01/10/25 07:49 Glucagon 1 [...] 100 Unit/Ml Insuln.Pen SC Not Given ACHS [facility] Protocol Ketorolac Tromethamine 15 mg 01/10/25 02:57 Ketorolac 15 Mg/Ml Vial IV 01/15/25 02:57 Q8H PRN PRN Pain 1- 5/10 or Fever Losartan Potassium 100 mg 01/10/25 10:00 01/12/25 09:51 Losartan Potassium 100 Mg Tablet PO Not Given DAILY [facility] Protocol Magnesium Hydroxide 30 ml 01/10/25 02:57 Magnesium Hydroxide 30 Ml Udc PO DAILY PRN PRN Constipation Melatonin 3 mg 01/10/25 02:57 Melatonin 3 Mg Tablet PO QHS PRN PRN INSOMNIA Metoprolol Tartrate 50 mg 01/10/25 10:00 01/12/25 09:45 Metoprolol Tartrate 50 Mg Tablet PO 50 mg BID [facility] Administration Protocol Morphine Sulfate 2 mg 01/10/25 02:57 Morphine 2 Mg/Ml Syringe IV Q4H PRN PRN Pain Score 6-10 Multivitamins 1 tablet 01/10/25 08:00 01/12/25 07:28 Multivitamins,Therapeutic [facility]t [facility] Nutritional Formula (Lactose Free) 120 ml 01/10/25 17:00 01/12/25 10:07 Glucerna Shake 120 Ml Liquid PO Not Given TIDCM [facility] Ondansetron HCl 4 mg 01/10/25 02:57 Ondansetron 4 Mg/2 Ml Vial IV Q6H PRN PRN NAUSEA/VOMITING Pantoprazole Sodium 40 mg 01/12/25 10:00 01/12/25 07:28 Pantoprazole Sodium 40 Mg Tablet PO Not Given DAILY [facility] Sodium Chloride 10 - 40 ml 01/10/25 [...] MD Cosigner Signature: Date CC: ~ Signed [facility] Work Phone: 1(571) 522-984703-18-2025 Progress note [facility] Medical Records Department [address] [place] [address] Progress Note 01/12/25 1200 MR#: [id number] Acct: [id number] Name: TELMA TINEO Rep #:[id number] : 1940 84 From: Mohit Brown DO PCP: Dr. Henok Martinez MD Status:ADM I N Location: [facility] NQ400-2 Progress Note Patient has been n.p.o. for [...] diabetes mellitus with hyperglycemia: QUALIFIERS: Diabetes mellitus director long term care insulin use: without director long term care use Qualified Code(s): E11.65 - Type 2 [...] 01/12/25 at 1202 Visit Charges Inpatient E&M: 24431 Subs Hosp L1 01/12/25 1202 d DO> Date _ Mohit Brown DO Cosigner Signature (if applicable): Date cc: ~* Signed [facility]03-18-2025 Consult note [facility] Medical Records Department [address] [place] [address] Pre-Anesthesia Evaluation 01/12/25 1049 MR#: [id number] Acct: [id number] Name: TELMA TINEO Rep #:[id number] : 1940 84 From: José Escobar MD PCP: Dr. Henok Martinez MD Status:ADM I N Y Race: H Location: [place] [address] -1 ASA Classification* ASA Classification ASA Classification: 4 [...] Procedure(s): ERCP Anesthesia History Anesthesia History - pension adviser: Anesthesia History - pension adviser Hx Hospitalization Any Problems With Anesthesia No [...] take am of surgery PONV PONV - pension adviser: PONV - pension adviser Female HX of Motion Sickness HX of N/V After Surgery Non-Smoker Duration of Surgery greater than 60 minutes Number of Risk Factors PONV Score Height & Weight Height & Weight: Anesthesia: Height & Weight Height 5 ft 01/12/25 08:02 Weight: 67.2 kg 01/12/25 08:02 Body Mass Index (BMI) 28.9 01/12/25 08:02 Respiratory Assessment Respiratory Assessment - pension adviser: Respiratory Tract Infection Hx - pension adviser Hx Respiratory Tract Infection No 01/11/25 21:37 STOP Sleep Apnea STOP Sleep Apnea - pension adviser: STOP Sleep Apnea - pension adviser Hx Hypertension Yes 01/11/25 11:23 Hx Sleep [...] Tobacco Use History Tobacco Use History - pension adviser: Tobacco Use History - pension adviser Tobacco Use Smoking Status Former smoker 01/10/25 02:58 Hx Tobacco Use No 01/10/25 02:58 Years Smoking Packs Smoked per Day Smoking Cessation Date was No - quit smoking greater 01/10/25 02:58 within the last 15 years than 15 years ago Hx Smoking Cessation Date 10/28/77 01/10/25 02:58 Hx Smoking Cessation No 01/10/25 02:58 Counseling Hematologic Medial History Hematologic Hx - pension adviser: Hematologic Medical Hx - documentation specialist Hx of Blood Transfusion No 01/10/25 02:58 [...] confused, unrespo /Reproduction History /Reproductive History - pension adviser: /Reproductive Hx- pension adviser Hx Now No 01/11/25 21:37 Gestational Age [...] 100 Unit/Ml Insuln.Pen SC Not Given ACHS [facility] Protocol Ketorolac Tromethamine 15 mg 01/10/25 02:57 Ketorolac 15 Mg/Ml Vial IV 01/15/25 02:57 Q8H PRN PRN Pain 1- 5/10 or Fever Losartan Potassium 100 mg 01/10/25 10:00 01/12/25 09:51 Losartan Potassium 100 Mg Tablet PO Not Given DAILY [facility] Protocol Magnesium Hydroxide 30 ml 01/10/25 02:57 Magnesium Hydroxide 30 Ml Udc PO DAILY PRN PRN Constipation Melatonin 3 mg 01/10/25 02:57 Melatonin 3 Mg Tablet PO QHS PRN PRN INSOMNIA Metoprolol Tartrate 50 mg 01/10/25 10:00 01/12/25 09:45 Metoprolol Tartrate 50 Mg Tablet PO 50 mg BID [facility] Administration Protocol Morphine Sulfate 2 mg 01/10/25 02:57 Morphine 2 Mg/Ml Syringe IV Q4H PRN PRN Pain Score 6-10 Multivitamins 1 tablet 01/10/25 08:00 01/12/25 07:28 Multivitamins,Therapeutic Tablet PO [facility] Nutritional Formula (Lactose Free) 120 ml 01/10/25 17:00 01/12/25 10:07 Glucerna Shake 120 Ml Liquid PO Not Given TIDCM [facility] Ondansetron HCl 4 mg 01/10/25 02:57 Ondansetron 4 Mg/2 Ml Vial IV Q6H PRN PRN NAUSEA/VOMITING Pantoprazole Sodium 40 mg 01/12/25 10:00 01/12/25 07:28 Pantoprazole Sodium 40 Mg Tablet PO Not Given DAILY [facility] Sodium Chloride 10 - 40 ml 01/10/25 [...] MD Cosigner Signature: Date CC: ~ Signed [facility]03-17-2025 History and physical note Author Mohit Friend [facility] Note Date/Time January 11, 2025 8:1 9pm [facility] Medical Records Department [address] [place] [address] History & Physical Exam 01/11/252012 MR#: [id number] Acct: [id number] Name: TELMA TINEO Rep #:[id number] : 1940 84 From: Mohit Brown DO PCP: Dr. Henok Martinez MD Status:ADM I N [facility] - General General Date of Admission: [...] on admission. Her mother of pancreatic cancer. [facility] Medical History Neck pain, bilateral History [...] 01/10/25 12:40 SB (Rec: 01/10/25 12:40 SB [id number]) Nutrition Malnutrition Evidence of Yes Malnutrition Exists [...] glucerna shake TID with medpass. Will consult CAR REPOSSESSOR d/t pt reporting difficulty chewing/ swallowing foods. [...] % (Auto) 62.1, Lymph % (Auto) 22.9, [place] % (Auto) 11.6 H, Eos % (Auto) [...] diabetes mellitus with hyperglycemia: QUALIFIERS: Diabetes mellitus group home insulin use: without group home use Qualified Code(s): E11.65 - Type [...] pancreatic cancer. Charges/Coding Visit Charges Inpatient E&M: 05755 Init Hosp L3 03/17/25 2019 <Electronically signed by Mohit Brown DO> Cosigner Signature (if applicable): CC: Dr. Henok Martinez MD; Mohit Brown DO~ Signed [facility] Work Phone: [phone] [phone] History and physical note [facility] Medical Records Department [address] [place] [address] History & Physical Exam 01/11/252012 MR#: [id number] Acct: [id number] Name: TELMA TINEO Rep #:[id number] : 1940 84 From: Mohit Brown DO PCP: Dr. Henok Martinez MD Status:ADM I N [facility] - General General Date of Admission: [...] on admission. Her mother of pancreatic cancer. [facility] Medical History Neck pain, bilateral History [...] 01/10/25 12:40 SB (Rec: 01/10/25 12:40 SB [id number]) Nutrition Malnutrition Evidence of Yes Malnutrition Exists [...] advanced, order 120ml glucerna shake TID with SimpleTuition. Will consult CAR REPOSSESSOR d/t pt reporting difficulty chewing/ swallowing foods. [...] % (Auto) 62.1, Lymph % (Auto) 22.9, [place] % (Auto) 11.6 H, Eos % (Auto) [...] diabetes mellitus with hyperglycemia: QUALIFIERS: Diabetes mellitus director long term care insulin use: without group home use Qualified Code(s): E11.65 - Type [...] pancreatic cancer. Charges/Coding Visit Charges Inpatient E&M: 09367 Init Hosp L3 01/11/252018 Cosigner Signature (if applicable): CC: Dr. Henok Martinez MD; Mohit Friend, DO~ Signed [facility]03-17-2025 [facility] Medical Records Department [address] [place] [address] History Physical Exam 01/11/252012 MR#: [id number] Acct: [id number] Name: TELMA TINEO Rep #: [id number] : 1940 84 From: Mohit Brown DO PCP: Dr. Henok Martinez MD Status:ADM IN Location: [facility]3 DT246-4 [facility] - General General Date of Admission: [...] on admission. Her mother of pancreatic cancer. [facility] Medical History Neck pain, bilateral History [...] 40 mg PO DAILY gerd #90 tabs 11/0 11/17 Unknown Rx release metformin 500 mg tablet 500 mg PO BID 02/15/22 Unknown His tory atorvastatin 20 mg tablet 20 mg PO QHS 05/11/23 Unknown Hist ory losartan 100 mg tablet [...] Source Monitor Monitor Bl (more content not included)...[facility]03-17-2025 Progress note Author Jose Wu [facility] Note Date/Time January 11, 2025 3:4 0pm [facility] Medical Records Department [address] [place] [address] Progress Note - Hospitalist 01/11/25 1534 MR#: [id number] Acct: [id number] Name: TELMA TINEO Rep #:[id number] : 1940 84 From: Jose Wu DO PCP: Dr. Henok Martinez MD Status:ADM I N Location: [place] [address] Reason for Visit Reason for Visit: Diagnoses [...] bed for the patient be transferred to [facility]. Objective Data Objective Data Vital Signs: [...] 01/10/25 12:40 SB (Rec: 01/10/25 12:40 SB [id number]) Nutrition Malnutrition Evidence of Yes Malnutrition Exists [...] glucerna shake TID with medpass. Will consult CAR REPOSSESSOR d/t pt reporting difficulty chewing/ swallowing foods. [...] % (Auto) 62.1, Lymph % (Auto) 22.9, [place] % (Auto) 11.6 H, Eos % (Auto) [...] 35 minutes Charges/Coding Visit Charges Inpatient E&M: 24888 Subs Hosp L2 01/11/25 9450 <Electronically signed by Jose Wu DO> Cosigner Signature (if applicable): CC: ~ Signed [facility] Work Phone: 1(217) 189-950403-17-2025 Progress note [facility] Medical Records Department [address] [place] [address] Progress Note - Hospitalist 01/11/25 1534 MR#: [id number] Acct: [id number] Name: TEMLA TINEO Rep #:[id number] : 1940 84 From: Jose Wu DO PCP: Dr. Henok Martinez MD Status:ADM I N Location: [address] Reason for Visit Reason for Visit: [...] bed for the patient be transferred to [facility]. Objective Data Objective Data Vital Signs: [...] 01/10/25 12:40 SB (Rec: 01/10/25 12:40 SB [id number]) Nutrition Malnutrition Evidence of Yes Malnutrition Exists [...] advanced, order 120ml glucerna shake TID with [employer]ition. Will consult CAR REPOSSESSOR d/t pt reporting difficulty chewing/ swallowing foods. [...] % (Auto) 62.1, Lymph % (Auto) 22.9, [place] % (Auto) 11.6 H, Eos % (Auto) [...] 35 minutes Charges/Coding Visit Charges Inpatient E&M: 18468 Subs Hosp L2 01/11/25 9340 Cosigner Signature (if applicable): CC: ~ Signed [facility]03-16-2025 Progress note Author Keenan Celeste [facility] Note Date/Time January 10, 2025 11: 47am [facility] Medical Records Department [address] [place] [address] Progress Note - Hospitalist 01/10/25 0741 MR#: [id number] Acct: [id number] Name: TELMA TINEO Rep #:[id number] : 1940 84 From: Keenan Celeste DO PCP: Dr. Henok Martinez MD Status:ADM I N Location: [facility]3 PK306-3 Reason for Visit Reason for Visit: Diagnoses [...] % (Auto) 65.7, Lymph % (Auto) 21.5, [place] % (Auto) 10.8 H, Eos % (Auto) [...] % (Auto) 66.7, Lymph % (Auto) 19.4, [place] % (Auto) 12.1 H, Eos % (Auto) [...] report) Advance diet. Awaiting on transfer to [facility]. PLAN: Plan DM2: * uncontrolled: * check a1c * SSI. * hold metformin as pt received IV contrast. HTN: stable. Continue metoprolol, losartan, amlodipine. VTE prophylaxis: enoxaparin. Charges/Coding Visit Charges Inpatient E&M: 86084 Subs Hosp L2 01/10/25 1147 <Electronically signed by Keenan Celeste DO> Cosigner Signature (if applicable): CC: ~ Signed [facility] Work Phone: [phone]) 466-168303-16-2025 Progress note [facility] Medical Records Department [address] [place] [address] Progress Note - Hospitalist 01/10/25 0741 MR#: [id number] Acct: [id number] Name: TELMA TINEO Rep #:[id number] : 1940 84 From: Keenan Celeste DO PCP: Dr. Henok Martinez MD Status:ADM I N Location: [place] [address] Reason for Visit Reason for Visit: Diagnoses [...] % (Auto) 65.7, Lymph % (Auto) 21.5, [place] % (Auto) 10.8 H, Eos % (Auto) [...] % (Auto) 66.7, Lymph % (Auto) 19.4, [place] % (Auto) 12.1 H, Eos % (Auto) [...] CTreport) Advance diet. Awaiting on transfer to [facility]. PLAN: Plan DM2: * uncontrolled: * check a1c * SSI. * hold metformin as pt received IV contrast. HTN: stable. Continue metoprolol, losartan, amlodipine. VTE prophylaxis: enoxaparin. Charges/Coding Visit Charges Inpatient E&M: 68155 Subs Hosp L2 01/10/25 1147 Cosigner Signature (if applicable): CC: ~ Signed [facility]03-16-2025 History and physical note Author Oniel Hernandez [facility] Note Date/Time January 10, 2025 6:5 7am [facility] Medical Records Department [address] [place] [address] H&P Exam - Hospitalist 01/10/25 0039 MR#: [id number] Acct: [id number] Name: TELMA TINEO Rep #:[id number] : 1940 84 From: Oniel Rojas DO PCP: Dr. Henok Martinez MD Status:ADM I N Location: [facility] WC486-1 HPI - General General Date of Admission: [...] with chronic neck pain who presents to [facility] ER complaining of jaundice. Ms. Tineo [...] She was then arranged for transfer to [facility] with bed not available at this time so the ER physician is contacted the hospitalist service to admit this patient until such time she can be safely transferred as per the policy of this hospital. She was then admitted to the general medical floor for ongoing care for stay that is expected to extend beyond 2 midnights. [facility] Medical History (Updated 01/10/25 @ 02:15 [...] % (Auto) 65.7, Lymph % (Auto) 21.5, [place] % (Auto) 10.8 H, Eos % (Auto) [...] diabetes mellitus with hyperglycemia: QUALIFIERS: Diabetes mellitus director long term care insulin use: without group home use Qualified Code(s): E11.65 - Type [...] floor until a bed is available at [facility]. Place on clear liquid diet. Start pantoprazole 40 mg IV daily. Give ondansetron IV as needed nausea and vomiting. Give ketorolac IV as needed vqlv-qe-klbzqlqv (level 1-5/10) pain or fever. Give morphine [...] 75 minutes. Charges/Coding Visit Charges Inpatient E&M: 52120 Init Hosp L3 01/10/25 0657 <Electronically signed by Oniel Golden DO> Cosigner Signature (if applicable): CC: Dr. Oniel Golden DO; Dr. Henok Martinez MD~ Signed [facility] Work Phone: [phone]) 327-376303-16-2025 History and physical note [facility] Medical Records Department [address] [place] [address] H&P Exam - Hospitalist 01/10/25 0039 MR#: [id number] Acct: [id number] Name: TELMA TINEO Rep #:[id number] : 1940 84 From: Oniel Rojas DO PCP: Dr. Henok Martinez MD Status:ADM I N Location: [facility]3 HY948-7 HPI - General General Date of Admission: [...] with chronic neck pain who presents to [facility] ER complaining of jaundice. Ms. Tineo [...] She was then arranged for transfer to [facility] with bed not available at this time so the ER physician is contacted the hospitalist service to admit this patient until such time she can be safely transferred as per the policy of this hospital. She was then admitted to the general medical floor for ongoing care for stay that is expected to extend beyond 2 midnights. [facility] Medical History (Updated 01/10/25 @ 02:15 [...] % (Auto) 65.7, Lymph % (Auto) 21.5, [place] % (Auto) 10.8 H, Eos % (Auto) [...] diabetes mellitus with hyperglycemia: QUALIFIERS: Diabetes mellitus director long term care insulin use: without group home use Qualified Code(s): E11.65 - Type [...] floor until a bed is available at [facility]. Place on clear liquid diet. Start pantoprazole 40 mg IV daily. Give ondansetron IV as needed nausea and vomiting. Give ketorolac IV as needed rqyy-rx-gdfkterc (level 1-5/10) pain or fever. Give morphine [...] 75 minutes. Charges/Coding Visit Charges Inpatient E&M: 96556 Init Hosp L3 01/10/25 0657 Cosigner Signature (if applicable): CC: Dr. Oniel Golden DO; Dr. Henok Martinez MD~ Signed [facility]03-16-2025 Evaluation note* Diagnosis Onset Date [...] h hyperglycemia acute January 10, 2025 2:16am [facility] Work Phone: 1(203) 934-801203-16-2025 Discharge summary Author Guille Garnica [facility] Note Date/Time January 09, 2025 10: 44pm [facility] Medical Records Department [address] [place] [address] Emergency Department Summary 01/09/25 MR#: [id number] Acct: [id number] Name: TELMA TINEO Rep #:[id number] : 1940 84 From: Guille Garnica MD [...] speak with the hospitalist regarding admission 01/09/25 2244<Electronically signed by Hung Remy DO> Cosigner Signature [...] last few days. No fevers or chills. [facility] Medical History Neck pain, bilateral History of [...] she has normal white count of 6.4, lgvuklmuuv60.6, hematocrit 37.4, platelet count normal at 171. [...] that her primary care provider is through [facility]. They prefer [facility] As it is in closer proximity, and they are associated with the [facility]. I discussed patient with the [...] % (Auto) 65.7 Lymph % (Auto) 21.5 [place] % (Auto) 10.8 H Eos % (Auto) [...] Other nonacute findings detailed above. Reading Location: [facility] Discharge Plan Triage Chief Complaint: Abn Labs [...] MD [Primary Care Provider] - Print Language: [place] What to do if you have Problems For any increased pain, shortness of breath, bleeding, nausea or vomiting, chestpain, or any unexpected problems, contact your Primary Care Provider. Call [facility] ([phone]) or report to the closest Emergency Room. Call 911 if necessary. 01/09/252214 <Electronically signed by Guille Garnica MD> Cosigner Signature (if applicable): CC: Dr. Henok Martinez MD ~ Signed [facility] Work Phone: [phone]) 507-882803-16-2025 Discharge summary Author Guille Garnica [facility] Note Date/Time January 09, 2025 10: 44pm [facility] Medical Records Department [address] [place] [address] Emergency Department Summary 01/09/25 MR#: [id number] Acct: [id number] Name: TELMA TINEO Rep #:[id number] : 1940 84 From: Guille Garnica MD [...] will speak with the hospitalist regarding admission 01/09/258<Electronically signed by Hung Remy DO> Cosigner Signature [...] last few days. No fevers or chills. [facility] Medical History Neck pain, bilateral History [...] that her primary care provider is through [facility]. They prefer [facility] As it is in closer proximity, and they are associated with the [facility]. I discussed patient with the [...] % (Auto) 65.7 Lymph % (Auto) 21.5 [place] % (Auto) 10.8 H Eos % (Auto) [...] Other nonacute findings detailed above. Reading Location: [facility] Discharge Plan Triage Chief Complaint: Abn Labs [...] MD [Primary Care Provider] - Print Language: [place] What to do if you have Problems For any increased pain, shortness of breath, bleeding, nausea or vomiting, chestpain, or any unexpected problems, contact your Primary Care Provider. Call [facility] ([phone]) or report to the closest Emergency Room. Call 911 if necessary. 01/09/255 <Electronically signed by Guille Garnica MD> Cosigner Signature (if applicable): CC: Dr. Henok Martinez MD ~ Signed [facility] Work Phone: 1([phone]) 615-511403-15-2025 Discharge summary [facility] Medical Records Department [address] [place] [address] Emergency Department Summary 01/09/25 MR#: [id number] Acct: [id number] Name: TELMA TINEO Rep #:[id number] : 1940 84 From: Guille Garnica MD [...] speak with the hospitalist regarding admission 01/09/25 2244 Cosigner Signature (if applicable): cc: Dr. Henok [...] last few days. No fevers or chills. [facility] Medical History Neck pain, bilateral History of [...] Severe anaphylaxis Verified 01/09/25 19:02 tramadol (From [employer]) AdvReac Severe syncope Verified 01/09/25 21:02 Family [...] she has normal white count of 6.4, wwakikwhrc39.6, hematocrit 37.4, platelet count normal at 171. [...] that her primary care provider is through [facility]. [facility], and they are associated with the [facility]. I discussed patient with the [...] % (Auto) 65.7 Lymph % (Auto) 21.5 [place] % (Auto) 10.8 H Eos % (Auto) [...] MD [Primary Care Provider] - Print Language: [place] What to do if you have Problems For any increased pain, shortness of breath, bleeding, nausea or vomiting, chestpain, or any unexpected problems, contact your Primary Care Provider. Call [facility] ([phone]) or report tothe closest Emergency Room. Call 911 if necessary. 01/09/252214 Cosigner Signature (if applicable): CC: Dr. Henok Martinez MD ~ Signed [facility]03-15-2025 Radiology Diagnostic study note [facility] Imaging Services [address] [place], [place] [address] Abdomen/Pelvis W IV Cont ONLY MR#: [id number] Acct: [id number] Name: TELMA TINEO Rep #: [id number] : 1940 F 84 From: Daniela Jonas MD PCP: Dr. Henok Martinez MD Status: REG E R Study:Abdomen/Pelvis W IV Cont ONLY Date of E xam: 01/09/25 Exam# [id number] Ordering Dr: Guille Garnica MD PROCEDURE: ABDOMEN/PELVIS [...] Garnica MD; Dr. Henok Martinez MD ~ Seam Steamer: Signed [facility]03-10-2025 NoteHNO ID: [id number] Author: IONA HATCH RN Service: ? Author Type: Registered [...] Status: Identified Start Date: 12/28/2024 Responsible Staff: Iona Hatch RN Support and Services: Assessments No documentation this encounter Interventions No checklist tasks for this episode were completed during this visit, and no tasks for this episode are pending completion. Iona Hatch RN January 04, 2025 1:40 [facility]03-10-2025 History of Present illness Narrative* Iona Hatch RN - 01/04/2025 1:40 PM EDT [...] Status: Identified Start Date: 12/28/2024 Responsible Staff: Iona Hatch RN Support and Services: Assessments No documentation this encounter Interventions No checklist tasks for this episode were completed during this visit, and no tasks for this episodeare pending completion. Iona Hatch RN January 04, 2025 1:40 PM [facility] NotePatient Outreach (AMBC[facility]) TELMA TINEO ([id number]) 1940 F Date Time Provider Department 01/04/25 IONA HATCH AMBKATELYNN During your visit today, we recorded the following information about you: Iona Hatch RN 01/04/2025 1:43 PM Signed CDM [...] Status: Identified Start Date: 12/28/2024 Responsible Staff: Iona Hatch RN Support and Services: Assessments No documentation this encounter Interventions No checklist tasks for this episode were completed during this visit, and no tasks for this episode are pending completion. Iona Hatch RN January 04, 2025 1:40 PM Allergies As of Date: 01/04/2025 Noted Allergy Reaction PENICILLINS 09/14/2021 10 - Anaphylaxis TETRACYCLINE 09/14/2021 2 - Rash TRAMADOL 07/01/2024 5 - Intolerance Comments: Trembling Date Reviewed: 11/17/2024 Reviewed by: Angelia Hart APRN.POLICE COMMANDING OFFICER - Fully Assessed Prescriptions as of 01/04/2025 [...] with meals. - Blood Pressure Test Kit-Large ([employer] ARM BP MONITOR) 1 Each once daily. 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 Requested Prescriptions Pending Prescriptions Disp Refills losartan (COZAAR) 100 mg tablet 90 tablet 3 Sig: Take 1 tablet by mouth once daily. Virginia Reina APRN.CNP [place] [address]-18-2025 Miscellaneous Notes* Telephone Encounter - Virginia Reina [...] 15, 2024 10:59 AM documented in [facility]02-[facility] Telephone encounter Note * Telephone Encounter [...] Ortiz LPN December 15, 2024 10:59 AM [facility]01-21-2025 History of Present illness Narrative* Jona, Angelia Trevino APRN.POLICE COMMANDING OFFICER - 11/17/2024 1:00 PM EST Images from [...] with increase in PPI. Ran out of Breo and has been out since the beginning [...] Blood Pressure Test Kit-Large Commonly known as: [employer] ARM BP MONITOR 1 Each once daily. [...] mass or definite lymphadenopathy within the chest. Seam Steamer: AMBER Transcribe Date/Time: Nov 21 2022 4:33P Dictated by : VELASQUEZ BENTON MD This examination was interpreted and the report reviewed and electronically signed by: VELASQUEZ BENTON MD on Nov 21 2022 4:44PM EST Results-Findings * * *Final Report* * * DATE OF EXAM: Nov 20 2022 2:16PM [facility] 0541 - CT CHEST WO IVCON / [...] No abnormality in the imaged upper abdomen. Oil Field Worker (topogram) images: No additional findings. Labs: WBC [...] Neut (k/uL) Date Value 11/05/2024 4.65 Abs [place] (k/uL) Date Value 11/05/2024 0.65 09/25/2021 0.71 [...] edited and updated as necessary. Angelia Hart APRN.POLICE COMMANDING OFFICER I spent a total of 30 minutes on the date of the service which included preparing to see the patient, vjlg-mp-yngh patient care, completing clinical documentation, performing a medically appropriate examination, counseling and educating the patient/family/caregiver, ordering medications, tests, or p rocedures, and communicating results to the patient/family/caregiver. documented in this encounterTwin City Hospital01-21-2025 NoteHNO ID: [id number] Author: ANGELIA HART APRN.NÉSTOR Service: ? Author [...] with increase in PPI. Ran out of Breo and has been out since the beginning [...] 15-2.6 mg Lozg lozenge Commonly known as: [employer] Blood Pressure Test Kit-[employer] Commonly known as: [employer] ARM BP MONITOR 1 Each once daily. [...] mass or definite lymphadenopathy within the chest. Seam Steamer: PSCB Transcribe Date/Time: Nov 21 2022 4:33P Dictated by : VELASQUEZ BENTON MD This examination was interpreted and the report reviewed and electronically signed by: VELASQUEZ BENTON MD on Nov 21 2022 4:44PM EST Results-Findings * * *Final Report* * * DATE OF EXAM: Nov 20 2022 2:16PM [facility] (more content not included)...[facility]01-16-2025 NoteHNO ID: [id number] Author: FATOUMATA OROZCO RDMS Service: ? Author Type: Lapel Padder Blindstitch Type: Progress Notes Filed: 11/13/2024 09:33 Note [...] PATIENT PRESENTS WITH AN IMPLANTABLE OR ATTACHED REPORT CLERK: No RADIOLOGY DEPARTMENT: Ultrasound PERIPHERAL IV DATA: Not applicable SIGNED BY: Fatoumata Orozco RDMS RVT November 13, 2024 9:32 [facility]01-13-2025 NoteHNO ID: [id number] Author: MELIZA WADSWORTH CCC-CAR REPOSSESSOR Service: ? Author Type: Speech Language Pathologist Type: Progress Notes Filed: 11/09/2024 16:07 Note Text: Episode Visit Count: Visit count could not be calculated. Make sure you are using a visit which is associated with an episode. Start of Care Date: 11/09/24 Onset Date: 10/28/24 Patient Identified by Name and Date of : Yes [facility] MODIFIED BARIUM SWALLOW [...] PO, - Small Bite/Sip, -Reduced bite size CAR REPOSSESSOR Recommendations: Diet, Swallowing Precautions, Discontinue Speech Therapy [...] Swallow (MBS) Study . - accompanied by Grandgirma Duarte - Pt on medication for reflux [...] 0, Mildly Thick Liquids IDDSI Level 2 ([place] Thick), Pureed Solids IDDSI Level 4, Soft [...] 0, Mildly Thick Liquids IDDSI Level 2 ([place] Thick), Pureed Solids IDDSI Level 4, Soft [...] pharyngeal structures, Residue with (more content not included)...[id number] History of Present illness Narrative* Meliza Wadsworth CCC-CAR REPOSSESSOR - 11/09/2024 10:43 AM EST Episode Visit Count: Visit count could not be calculated. Make sure you are using a visit which is associated with an episode. Start of Care Date: 11/09/24 Onset Date: 10/28/24 Patient Identified by Name and Date of : Yes [facility] MODIFIED BARIUM SWALLOW [...] PO, - Small Bite/Sip, -Reduced bite size CAR REPOSSESSOR Recommendations: Diet, Swallowing Precautions, Discontinue Speech Therapy [...] 0, Mildly Thick Liquids IDDSI Level 2 ([place] Thick), Pureed Solids IDDSI Level 4, Soft [...] 0, Mildly Thick Liquids IDDSI Level 2 ([place] Thick), Pureed Solids IDDSI Level 4, Soft [...] 4, Mildly Thick Liquids IDDSI Level 2 ([place] Thick), Thin Liquids IDDSI Level 0 Education: [...] Demonstration TREATMENT: Performed Modified Barium Swallowing Study (05380). Evaluation: Modified Barium Swallow Evaluation (33706) Swallow / Dysphagia (48290): Skilled Intervention: Provided education related to a [...] provided this date. Billing: Modified Barium Swallow (58526) and Dysphagia Treatment (59826) Total time: 30 minutes Session Start Time : 1030 Session Stop Time : 1100 Meliza Wadsworth CCC-CAR REPOSSESSOR documented in this encounterT[facility]01-13-2025 History of Present illness Narrative* Albina Boles, RT(R) - 11/09/2024 10:30 AM EST Radiology [...] PATIENT PRESENTS WITH AN IMPLANTABLE OR ATTACHED REPORT CLERK: No RADIOLOGY DEPARTMENT: General X-ray: Exam(s) Completed: GI/ Procedure(s): Modified barium swallowwith barium contrast PERIPHERAL IV DATA: Not applicable SIGNED BY: RT Oliverio(R) November 09, 2024 12:34 PM documented in this encounterT[facility]01-13-2025 NoteHNO ID: [id number] Author: ALBINA BOLES RT(Dylan) Service: Radiology Author Type: Technologist Type: Progress [...] PATIENT PRESENTS WITH AN IMPLANTABLE OR ATTACHED REPORT CLERK: No RADIOLOGY DEPARTMENT: General X-ray: Exam(s) Completed: GI/ Procedure(s): Modified barium swallow with barium contrast PERIPHERAL IV DATA: Not applicable SIGNED BY: RT Oliverio(R) November 09, 2024 12:34 PMC[facility] Clinic Mercy [id number] Telephone encounter Note* Telephone Encounter - Li Allison MA - 11/06/2024 12:52 PM EST Spoke with patients sonTimothy. Informed and verbalized understanding. Endo appt already scheduled. Advised to gets labs next week. Sending to schedulers for US. Li Allison MA [facility]01-10-2025 Miscellaneous Notes* Telephone Encounter - Li Allison MA - 11/06/2024 12:52 PM EST Spoke with patients son, Timothy. Informed and verbalized understanding. Endo appt already [...] pain? Let me know documented in this encounterTwin City Hospital01-10-2025 Telephone encounter Note * Telephone Encounter - Henok Martinez MD - 11/06/2024 11:22 AM EST OK set up for endo. Call if pain worsens, light diet. Recheck lipase and follow up next week. Avoid any etoh. Get ruq us. [facility]01-10-2025 Telephone encounter Note* Telephone Encounter - Nat Marcelo RN - 11/06/2024 11:01 AM EST Patient's son Timothy notified of results and provider's instructions. Patient's son verbalizes understanding. Timothy states that the stomach pain is the same as she was having. Nat Marcelo RN [facility]01-10-2025 Telephone encounter Note* Telephone Encounter - Diana Ríos RN - 11/06/2024 9:56 AM EST Called and left a voicemail for the Patient and her daughter Sujata to call back and ask for a nurse to receive the providers message. Daina Ríos RN [facility]01-10-2025 Telephone encounter Note* Telephone Encounter - Henok Martinez MD - 11/06/2024 9:47 AM EST Sugars are way to high, see endo. Lipase or pancreatic enzyme is very mildly up. How is her stomach pain? Let me know [facility]01-09-2025 History of Present illness Narrative* Srikanth Martinez, RT(R) - 11/05/2024 9:30 AM EST Radiology Service [...] PATIENT PRESENTS WITH AN IMPLANTABLE OR ATTACHED REPORT CLERK: No RADIOLOGY DEPARTMENT: General X-ray: Exam(s) Completed: Chest X-Ray PERIPHERAL IV DATA: Not applicable SIGNED BY: RT Rambo(R) November 05, 2024 9:19 AM documented in this encounterTwin City Hospital01-09-2025 NoteHNO ID: [id number] Author: SRIKANTH MARTINEZ RT(R) Service: Radiology Author [...] PATIENT PRESENTS WITH AN IMPLANTABLE OR ATTACHED REPORT CLERK: No RADIOLOGY DEPARTMENT: General X-ray: Exam(s) Completed: Chest X-Ray PERIPHERAL IV DATA: Not applicable SIGNED BY: RT Rambo(R) November 05, 2024 9:19 [facility]01-08-2025 NoteHNO ID: [id number] Author: HENOK MARTINEZ MD Service: ? Author [...] day with meals. Blood Pressure Test Kit-Large ([employer] ARM BP MONITOR) 1 Each once daily. [...] Lungs clear to auscultati (more content not included)...[facility]01-08-2025 History of Present illness Narrative* Henok Martinez [...] day with meals. Blood Pressure Test Kit-Large ([employer] ARM BP MONITOR) 1 Each once daily. [...] ICD9: V12.54, ICD10: Z86.73 -as above. 10. detention current use of anticoagulant therapy - ICD9: V58.61, ICD10: Z79.01 - stable. 11. Epigastric pain - ICD9: 789.06, ICD10: R10.13 - increase protonix. Consider gi. Recheck one month. - LIPASE - US ABD RIGHT UPPER QUADRANT 12.hemoptysis Get xray now and see Dr Galindo Martinez MD documented in this encounterTwin City Hospital12-17-2024 Instructions* Patient Instructions* Virginia Reina APRN.CNP - 10/13/2024 2:58 PM EST 1) Levaquin 500 mg daily for 7 days 2) Tessalon (benzonatate) 100 mg 3 x days as needed for cough 3) See Dr. Martinez in October as scheduled 4) Modified barium swallow for dysphagia documented in this encounterTwin City Hospital12-17-2024 NoteHNO ID: [id number] Author: VIRGINIA REINA APRN.CNP Service: ? Author Type: Clinical Nurse Specialist [...] day with meals. Blood Pressure Test Kit-Large ([employer] ARM BP MONITOR) 1 Each once daily. [...] - Will get swa (more content not included)...[facility] 10-13-2024 History of Present illness Narrative* Virginia Reina APRN.NÉSTOR - 10/13/2024 2:48 PM EST This is [...] day with meals. Blood Pressure Test Kit-Large ([employer] ARM BP MONITOR) 1 Each once daily. [...] Resp 16 Wt 73.5 kg (162 lb) [id number]% BMI 32.72 kg/m PHYSICAL EXAM: Physical Exam [...] as needed for worsening/no improvement. Virginia Reina APRN.POLICE COMMANDING OFFICER documented in this encounterTwin City Hospital09-04-2024 NoteHNO ID: [id number] Author: HENOK MARTINEZ MD Service: ? Author Type: Physician Type: Progress Notes Filed: 07/01/2024 17:10 Note Text: Patient presents with: ER F/U HPI: Patient presents today for office visit for HOSPITAL/ER FOLLOW UP: Reason for visit: Multiple somatic complaints ranging from left side of head and face, left side of neck and left arm pain with chest pain. Which facility: [facility] Date of visit: 06/25/24 Diagnosis: [...] day with meals. Blood Pressure Test Kit-Large ([employer] ARM BP MONITOR) 1 Each once daily. [...] of 2) Never done Covid-19 Vaccine(3 - ) due on 06/28/2024 Influenza Vaccine(1) due on [...] Good capillary refill. Muscu (more content not included)...[facility]09-04-2024 History of Present illness Narrative* Henok Martinez MD - 07/01/2024 3:52 PM EDT Patient presents with: ER F/U HPI: Patient presents today for office visit for HOSPITAL/ER FOLLOW UP: Reason for visit: Multiple somatic complaints ranging from left side of head and face, left side ofneck and left arm pain with chest pain. Which facility: [facility] Date of visit: 06/25/24 Diagnosis: [...] day with meals. Blood Pressure Test Kit-Large ([employer] ARM BP MONITOR) 1 Each once daily. [...] stable. Henok Martinez MD documented in this encounterTwin City Hospital08-10-2024 History of Present illness Narrative* Srikanth Martinez, RT(R) - 06/06/2024 8:00 AM EDT Radiology Service [...] PATIENT PRESENTS WITH AN IMPLANTABLE OR ATTACHED REPORT CLERK: No RADIOLOGY DEPARTMENT: General X-ray: Exam(s) Completed: Rib X-Ray: Right PERIPHERAL IV DATA: Not applicable SIGNED BY: RT Rambo(R) June 06, 2024 8:00 AM documented in this encounterTwin City Hospital08-10-2024 Miscellaneous Notes* Result Encounter Note - Danielle Taylor PA-C - 06/06/2024 8:00 AM EDT Please call Telma to alert her that her rib xray was normal. No sign of a fracture. documented in this encounterTwin City Hospital08-10-2024 NoteHNO ID: [id number] Author: SRIKANTH MARTINEZ RT(Dylan) Service: Radiology Author Type: Technologist Type: Progress [...] PATIENT PRESENTS WITH AN IMPLANTABLE OR ATTACHED REPORT CLERK: No RADIOLOGY DEPARTMENT: General X-ray: Exam(s) Completed: Rib X-Ray: Right PERIPHERAL IV DATA: Not applicable SIGNED BY: RT Rambo(R) June 06, 2024 8:00 [facility]08-10-2024 Progress note* Result Encounter Note - Danielle Taylor PA-C - 06/06/2024 8:00 AM EDT Please call Telma to alert her that her rib xray was normal. No sign of a fracture. [facility] Work Phone: 1(496) 298-224908-09-2024 History of Present illness Narrative* Nancy Medley MD - 06/05/2024 11:45 AM EDT Images from the original note were not included. 0. [facility] [place] Note Patient name: Telma Tineo PCP: Henok [...] without long- term current use of insulin ([facility]) ALLERGIES Allergen Reactions Penicillins Anaphylaxis Tetracycline Rash [...] day with meals. Blood Pressure Test Kit-Large ([employer] ARM BP MONITOR) 1 Each once daily. [...] edited and updated as necessary. Angelia Hart APRN.POLICE COMMANDING OFFICER Attending Note I have personally performed a [...] Time: 3:07 PM Nancy Medley MD [facility] [place] documented in this encounterTwin City Hospital08-09-2024 NoteHNO ID: [id number] Author: NANCY MEDLEY MD Service: ? Author Type: Physician Type: Progress Notes Filed: 06/05/2024 15:10 Note Text: 0. [facility] [place] Note Patient name: Telma Tineo PCP: Henok [...] day with meals. Blood Pressure Test Kit-Large ([employer] ARM BP MONITOR) 1 Each once daily. [...] pain. No swelling (more content not included)... [facility]07-15-2024 Telephone encounter Note* Telephone Encounter - Virginia [...] Doty LPN May 11, 2024 10:26 AM [facility]07-15-2024 Miscellaneous Notes* Telephone Encounter - Virginia [...] 11, 2024 10:26 AM documented in this encounterTwin City Hospital07-08-2024 Telephone encounter Note * Telephone Encounter - Li Allison MA - 05/04/2024 2:28 PM EDT Patients girma Timothy informed and verbalized understanding. Sending to schedulers for Endo consult. Timothy will wait for callback on that. Li Allison MA [facility]07-08-2024 Miscellaneous Notes* Telephone Encounter - Li Allison MA - 05/04/2024 2:28 PM EDT Patients son Timothy informed and verbalized understanding. Sending to schedulers [...] anemia labs including ibobt documented in this encounterTwin City Hospital07-08-2024 Telephone encounter Note * Telephone Encounter - Henok Martinez MD - 05/04/2024 1:02 PM EDT Sugars are still out of control. Slightly better but still way too high. Again. Recommend endo. Referral already placed. She appears to have a new mild anemia. Recheck anemia labs including ibobt [facility]07-05-2024 History of Present illness Narrative* Juan [...] PATIENT PRESENTS WITH AN IMPLANTABLE OR ATTACHED REPORT CLERK: No RADIOLOGY DEPARTMENT: General X-ray: Exam(s) Completed: Chest X-Ray PERIPHERAL IV DATA: Not applicable SIGNED BY: RT Gavin(R) May 01, 2024 4:35 PM documented in this encounterTwin City Hospital07-05-2024 History of Present illness Narrative* Henok [...] Abs Lymph 1.00 - 4.00 k/uL 2.06 [place]% % 7.3 Abs [place] <0.87 k/uL 1.23 (H) Eosin% % 0.9 [...] mouth once daily. Blood Pressure Test Kit-Large ([employer] ARM BP MONITOR) 1 Each once daily. [...] xray. Henok Martinez MD documented in this encounterTwin City Hospital07-02-2024 History of Present illness Narrative* Emma [...] continue care with primary care doctor and/or sales commissions analyst to maintain optimum levels as they are important to avoid ocular complications. Encouraged patient to call the office immediately with any changes to vision or visual concerns. Advised to not wait until the next scheduled exam. 4. Pseudophakia of both eyes 5. Presbyopia Continue with OTC readers (Patient not interested in rx) Follow-up in 1 year for LAMAR Carter De Mcnally, OD April 28, 2024 1:38 PM documented in this encounterTwin City Hospital05-24-2024 Telephone encounter Note * Telephone Encounter - Virginia Reina APRN.CNS - 03/20/2024 12:32 PM EDT The following approved medication requests have been transmitted electronically. Requested Prescriptions Pending Prescriptions Disp Refills pantoprazole DR (PROTONIX) 40 mg tablet 90 tablet 3 Sig: Take 1 tablet by mouth once daily. Virginia Reina APRN.CNS [facility]05-24-2024 Miscellaneous Notes* Telephone Encounter - Virginia Reina APRN.CNS - 03/20/2024 12:32 PM EDT The following approved medication requests have been transmitted electronically. Requested Prescriptions Pending Prescriptions Disp Refills pantoprazole DR (PROTONIX) 40 mg tablet 90 tablet 3 Sig: Take 1 tablet by mouth once daily. Virginia Reina APRN.CNS * Telephone Encounter - Elaina Retana - [...] Thank you. Elaina Retana. documented in this encounterTwin City Hospital05-24-2024 Telephone encounter Note * Telephone Encounter [...] 05/01/2024 Please advise. Thank you. Elaina Retana. [facility]05-16-2024 Telephone encounter Note* Telephone Encounter - Donna Mcnally - 03/12/2024 9:11 AM EDT 3rd call attempt, left vm, closing encounter [facility]05-16-2024 Miscellaneous Notes* Telephone Encounter - Donna [...] help patient set up endo consult in [place]. Cris Garza Ma * Telephone Encounter - [...] slightly high. Recheck labs in one week. 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 I would recommend she see our endo nurse here in [place] to help with her sugars. documented in this encounterTwin City Hospital05-13-2024 Telephone encounter Note * Telephone Encounter - Wendi Mccoy PSS - 03/09/2024 8:26 AM EDT 2nd attempt: LVM for patient to schedule endocrinology appointment. [facility]05-10-2024 Telephone encounter Note* Telephone Encounter - Belinda Shields RN - 03/06/2024 10:31 AM EDT DaughterSujata, phoned asking for results of xray and given providers message below with verbalized understanding. Daughter agreeable. [facility]05-10-2024 Miscellaneous Notes* Telephone Encounter - Belinda Shields RN - 03/06/2024 10:31 AM EDT DaughterSujata, phoned asking for results of xray and given providers message below with verbalized understanding. Daughter agreeable. * Telephone Encounter - Henok Martinez MD - 03/06/2024 8:22 AM EDT Xray shows ?? Nodules that could be from infection. Recheck xray in one month to make sure goes away. documented in this encounterTwin City Hospital05-10-2024 Telephone encounter Note * Telephone Encounter - Amisha Barbosa - 03/06/2024 9:38 AM EDT 1st attempt LVM to schedule with endocrinology [facility]05-10-2024 Telephone encounter Note* Telephone Encounter - Henok Martinez MD - 03/06/2024 8:22 AM EDT Xray shows ?? Nodules that could be from infection. Recheck xray in one month to make sure goes away. [facility]05-09-2024 Telephone encounter Note* Telephone Encounter - Cris Garza MA - 03/05/2024 1:48 PM EDT Patient's son was made aware of the results. Patient verbalizes understanding. He is unsure if she misses any medication doses. He will check. Please help patient set up endo consult in [place]. Cris Garza Ma [facility]05-09-2024 Telephone encounter Note* Telephone Encounter - [...] slightly high. Recheck labs in one week. 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 I would recommend she see our endo nurse here in [place] to help with her sugars. [facility]05-09-2024 Telephone encounter Note* Telephone Encounter - Bharati Jackson LPN - 03/05/2024 9:59 AM EDT Daughter called and results below given. Her labs are not all back yet. They white count is up but that is likely from her recent steroids. Dr Mueller Written by Henok Martinez MD on 03/05/2024 9:56 AM E [facility]05-09-2024 Miscellaneous Notes* Telephone Encounter - Bharati Jackson LPN - 03/05/2024 9:59 AM EDT Daughter called and results below given. Her labs are not all back yet. They white count is up but that is likely from her recent steroids. Dr Mueller Written by Henok Martinez MD on 03/05/2024 9:56 AM E documented in this encounterTwin City Hospital05-08-2024 History of Present illness Narrative* Juan Ernandez, RT(R) - 03/04/2024 3:50 PM EDT Radiology [...] PATIENT PRESENTS WITH AN IMPLANTABLE OR ATTACHED REPORT CLERK: No RADIOLOGY DEPARTMENT: General X-ray: Exam(s) Completed: Chest X-Ray PERIPHERAL IV DATA: Not applicable SIGNED BY: RT Gavin(R) March 04, 2024 3:37 PM documented in this encounterTwin City Hospital05-08-2024 History of Present illness Narrative* Henok Martinez MD - 03/04/2024 2:11 PM EDT Patient presents with: ER F/U HPI: Patient presents today for office visit for HOSPITAL/ER FOLLOW UP: Reason for visit: Cough, shortness of breath, weakness Which facility: [facility] Date of visit: 02/25/24 Diagnosis: [...] Was seen in [facility] here in [place] on 02/07/24 and then again on 02/19/24. [...] mouth once daily. Blood Pressure Test Kit-Large ([employer] ARM BP MONITOR) 1 Each once daily. [...] HORMONE Henok Martinez MD documented in this encounterTwin City Hospital05-06-2024 Telephone encounter Note * Telephone Encounter - Sun Knowles OCCA - 03/02/2024 11:47 AM EDT TC to Sujata who verbalized understanding of below. Sujata wanting to keep appointment scheduled with Dr. Martinez on Saturday. CHAY Tolbert [facility]05-06-2024 Miscellaneous Notes* Telephone Encounter - Sun Knowles OCCA - 03/02/2024 11:47 AM EDT TC to Sujata who verbalized understanding of below. Sujata wanting to keep appointment scheduled with Dr. Martinez on Saturday. CHAY Tolbert * Telephone Encounter - Henok Martinez MD - 03/02/2024 11:42 AM EDT Would recommend being seen. If bad, see one of the other providers before Wed * Telephone Encounter - Daina Ríos RN [...] She states she took the Pt to [facility] and they gave her Prednisone [...] Please call and advise. documented in this encounterTwin City Hospital05-06-2024 Telephone encounter Note * Telephone Encounter - Henok Martinez MD - 03/02/2024 11:42 AM EDT Would recommend being seen. If bad, see one of the other providers before Wed [facility]05-06-2024 Telephone encounter Note* Telephone Encounter - [...] She states she took the Pt to [facility] and they gave her Prednisone (which she took the last pill yesterday), Albuterol, and IV fluids. Pt reports the Prednisone helped, but the Albuterol doesn't seem to help at all. Pt denies fever, but doesn't have anything to take it with. Tried to get the Pt an earlier appoin [facility], but she wants to see Dr Martinez and the earliest they could get her in was Saturday03/04/24. Please call and advise. [facility]04-30-2024 Discharge summary Author Gabe Foster [facility] February 25, 2024 6:12pm Note Date/Time February 25, 2024 4:5 1pm [facility] Medical Records Department [address] [place] [address] Emergency Department Summary 02/25/24 MR#: [id number] Acct: [id number] Name: TELMA TINEO Rep #:[id number] : [id number] 83 From: Gabe Foster DO PCP: Dr. Henok Martinez MD Status:REG E R Location: ED HPI History of Present Illness Chief Complaint: Weakness [...] history of asthma she states since . [facility] Medical History Asthma Complaint of melena Diabetes [...] 76.3 H Lymph % (Auto) 9.0 L [place] % (Auto) 13.1 H Eos % (Auto) [...] Clarity Clear Urine pH 7.0 Ur Specific [place] 1.005 Urine Protein 30 H Urine Glucose [...] Signed: Fazal Stout MD at 16:59 EDT Reading Location ID and State: [facility] / [place] Tel , Service support , Discharge Plan Triage Chief Complaint: Weakness [...] your Primary Care Provider. Call [facility] ([phone]) or report to the closest Emergency Room. Call 911 if necessary. 02/25/241811 <Electronically signed by Gabe Foster DO> Cosigner Signature (if applicable): CC: Dr. Henok Martinez MD ~ Signed [facility] Work Phone: 1(193) 302-712404-26-2024 Telephone encounter Note* Telephone Encounter - Shabnam Ruiz LPN - 02/21/2024 4:40 PM EDT Daughter notified. [facility]04-26-2024 Miscellaneous Notes* Telephone Encounter - Shabnam Ruiz [...] now. Using OTC Vicks, Tylenol, Emergen-C, Mucinex, [place], honey, drinking tea. Will need call daughter [...] fever but has not checked it. Uses [facility]. Reminded daughter that patient needs to seek ER for any severe sx's as dicussed during call. Please advise daughter Sujata at [phone] Thank you. documented in this encounterTwin City Hospital04-26-2024 Telephone encounter Note * Telephone Encounter - Henok Martinez MD - 02/21/2024 4:24 PM EDT Urgent care note said one day. Will add meds [facility]04-26-2024 Telephone encounter Note* Telephone Encounter - Shabnam Ruiz LPN - 02/21/2024 4:18 PM EDT Patient daughter states that she has had symptoms for a week now. Using OTC Vicks, Tylenol, Emergen-C, Mucinex, [place], honey, drinking tea. Will need call daughter back. [facility]04-26-2024 Telephone encounter Note* Telephone Encounter - [...] anything down can always be seen again. [facility]04-26-2024 Telephone encounter Note* Telephone Encounter - Fernanda Macario RN - 02/21/2024 3:51 PM EDT Patient's daughter Sujata calling regarding patient. Patient was seen in yesterday for sore throat: nasal congestion, headache [...] but has not checked it. Uses [facility] [place]. Reminded daughter that patient needs to seek ER for any severe sx's as dicussed during call. Please advise daughter Sujata at [phone] Thank you. [facility]04-24-2024 History of Present illness Narrative* Lana Alanis APRN.POLICE COMMANDING OFFICER - 02/19/2024 1:03 PM EDT CC: Patient [...] mouth once daily. Blood Pressure Test Kit-Large ([employer] ARM BP MONITOR) 1 Each once daily. [...] plan. Lana Alanis APRN.NÉSTOR documented in this encounterTwin City Hospital04-12-2024 History of Present illness Narrative* Fazal [...] mouth once daily. Blood Pressure Test Kit-Large ([employer] ARM BP MONITOR) 1 Each once daily. [...] of care. This note was generated using [employer]Nu software. It may contain errors in wording, punctuation, or spelling. Fazal Law APRN.POLICE COMMANDING OFFICER documented in this encounterTwin City Hospital02-29-2024 Miscellaneous Notes* Telephone Encounter - Virginia [...] you. Virginia Doty LPN. documented in this encounterTwin City Hospital02-19-2024 History of Present illness Narrative* Henok [...] bruising. Follows with Dr. Sarabia Follows with Pulm. Current therapy consists of Breo No coughing [...] mouth twice daily. Blood Pressure Test Kit-Large ([employer] ARM BP MONITOR) 1 Each once daily. [...] A1C Henok Martinez MD documented in this encounterTwin City Hospital11-22-2023 Miscellaneous Notes* Telephone Encounter - Belinda Muller PA-C - 09/18/2023 4:48 PM EST [...] times a day with meals. Authorizing Provider: Belinda MULLER PA-C documented in this encounterTwin City Hospital11-09-2023 History of Present illness Narrative* Belinda Muller PA-C - 09/05/2023 3:20 PM EST 83 year old female new to me here with son, with c/o 3 month follow-up rescheduled from Dr. 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 Nancy Medley, Danielle Medley PA-C. Interval history: 05/20/2023 last visit with [...] spells? No Any visual disturbance? Yes, has 2023 Chest pain? No New numbness, tingling [...] Type (Hcc) Chest Pain Hyperlipidemia Impaired Cognition Manager Center Current Use of Anticoagulant Therapy Cerebrovascular Accident [...] 180 tablet 3 Blood Pressure Test Kit-Large ([employer] ARM BP MONITOR) 1 Each once daily. [...] Never done Influenza Vaccine(1) Never done Covid-19 Vaccine( season) due on 06/28/2023 HbA1C due on [...] - ICD9: 212.7, ICD10: D15.1 noted 5. detention current use of anticoagulant therapy - ICD9: [...] been adjusted for changes in prior data. Belinda Muller PA-C documented in this encounterTwin City Hospital10-09-2023 Miscellaneous Notes* Telephone Encounter - Lena Lopez LPN - 08/05/2023 1:28 PM EDT Timothy informed. * Telephone Encounter - Daina Ríos RN - 08/05/2023 1:24 PM EDT Called and left a voicemail for the Patient to call back and ask for a nurse to receive the providers message. Daina Ríos RN * Telephone Encounter - Clarita Boggs APRN.CNP - 08/05/2023 1:09 PM EDT Script sent. Clarita Boggs APRN.POLICE COMMANDING OFFICER * Telephone Encounter - Daina Ríos RN - 08/05/2023 12:08 PM EDT Pt is out, pharmacy gave her an emergency fill to get her through until provider could send it in. Patient has been identified by name and date of : Yes, Provider Dr Martinez Date 08/05/23 Time 1210. Prelert phones for refill(s): Requested Prescriptions Pending Prescriptions [...] you. Daina Ríos, RN documented [facility] encounter[facility] History of Present illness Narrative* Emma [...] without long-term current use of insulin (HCC) Monitor 4. Pseudophakia of both eyes 5. Presbyopia Monitor Follow-up in 10 months for complete diabetic eye exam Emma Mcnally, OD June 25, 2023 10:12 AM documented in this encounterTwin City [facility]08-29-2023 Instructions* Patient Instructions* Emma Mcnally, OD - 06/25/2023 10:06 AM EDT Use warm compresses daily Continue: Systane Complete or Refresh Relieva 2-3 times daily Systane, Refresh or Blink gel nightly before bed in both eyes documented in this encounterTwin [facility]07-24-[facility]23 History of Past illness Narrative* Problem Noted Date Diagnosed Date Resolved Date Candidiasis of vagina 05/20/2023 05/20/20232022 Neck pain 05/20/2023 05/20/2023 05/20/2023 documented as of this encounter (statuses as of 06/25/2023) [facility] of Past illness Narrative* Problem Noted Date Diagnosed Date Resolved Date Candidiasis of vagina 05/20/2023 05/20/20232022 Neck pain 05/20/2023 05/20/2023 05/20/2023 documented as of this encounter (statuses as of 08/06/2023) [facility] of Past illness Narrative* Problem Noted Date Diagnosed Date Resolved Date Candidiasis of vagina 05/20/2023 05/20/20232022 Neck pain 05/20/2023 05/20/2023 05/20/2023 documented as of this encounter (statuses as of 09/06/2023) [facility] of Past illness Narrative* Problem Noted Date Diagnosed Date Resolved Date Candidiasis of vagina 05/20/2023 05/20/20232022 Neck pain 05/20/2023 05/20/2023 05/20/2023 documented as of this encounter (statuses as of 09/18/2023) [facility] of Past illness Narrative* Problem Noted Date Diagnosed Date Resolved Date Candidiasis of vagina 05/20/2023 05/20/20232022 Neck pain 05/20/2023 05/20/2023 05/20/2023 documented as of this encounter (statuses as of 12/16/2023) [facility] of Past illness Narrative* Problem Noted Date Diagnosed Date Resolved Date Candidiasis of vagina 05/20/2023 05/20/20232022 Neck pain 05/20/2023 05/20/2023 05/20/2023 documented as of this encounter (statuses as of 12/27/2023) [facility] of Past illness Narrative* Problem Noted Date Diagnosed Date Resolved Date Candidiasis of vagina 05/20/2023 05/20/20232022 Neck pain 05/20/2023 05/20/2023 05/20/2023 documented as of this encounter (statuses as of 02/07/2024) [facility] Foster [facility] April 22, 2023 8:09pm Note Date/Time April 22, 2023 8:09 pm [facility] Medical Records Department [address] [place] [address] Emergency Department Summary 04/22/23 MR#: [id number] Acct: [id number] Name: TELMA TINEO Rep #:[id number] : 1940 82 From: Gabe Foster DO [...] has history of stroke in the past. [facility] Medical History Asthma Complaint of melena Diabetes [...] % (Auto) 65.0 Lymph % (Auto) 23.0 [place] % (Auto) 9.0 Eos % (Auto) 2.2 [...] EDT Reading Location ID and State: Gary Jose MD Tel , Service support , Chest X-Ray 04/22/23 18:35 IMPRESSION: No radiographic evidence of acute cardiopulmonary disease. Electronically Signed: Bharati Maya MD at 19:01 EDT Reading Location ID and State: Gary Jose MD Tel , Service support , Discharge Plan [...] your Primary Care Provider. Call [facility] ([phone]) or report to the closest Emergency Room. Call 911 if necessary. 04/22/232008 <Electronically signed by Gabe Foster DO> Cosigner Signature (if applicable): CC: Dr. Henok Martinez MD ~ Signed [facility] Work Phone: 1(130) 788-259106-19-2023 Instructions* Patient Instructions* Clarita Boggs APRN.CNP - 04/15/2023 1:29 PM EDT Stop the hydrochlorothiazide. Increase the metolprolol to 75 mg (1 1/2 tablets) twice daily. Recheck BP in 2-3 weeks. documented in this encounterTwin City Hospital06-19-2023 History of Present illness Narrative* Clarita [...] Medications Medication Sig Blood Pressure Test Kit-Large ([employer] ARM BP MONITOR) 1 Each once daily. [...] not continue the HCTZ as it makes hare feel like a zombie. She is aware of the risks of HTN -- including VA, CVA, . Discussed options and she is [...] as needed for worsening/no improvement. Clarita Boggs APRN.NÉSTOR documented in this encounterTwin City Hospital06-05-2023 History of Present illness Narrative* Henok Martinez MD - 04/01/2023 4:00 PM EDT Patient presents with: ER F/U HPI: Patient presents today for office visit for follw up. HOSPITAL/ER FOLLOW UP: Reason for visit: HTN Which facility: [facility] Date of visit: 03/31/23 Diagnosis: [...] A1C Henok Martinez MD documented in this encounterTwin City Hospital05-01-2023 Instructions* Patient Instructions* Sun Beal RD - 02/25/2023 2:10 PM EDT Add in [...] beverages, no juice 7 Use healthy fats: Milner oil, canola oil, walnuts, ground flaxseed or [...] choices when eating out documented in this encounterTwin City Hospital05-01-2023 History of Present illness Narrative* Sun [...] beverages, no juice 7 Use healthy fats: Milner oil, canola oil, walnuts, ground flaxseed or [...] Vitamins/Supplements - MVI, May go out for [place] Islander Plain salads and veggies Occ beans, potatoes, [...] Physical limitations affecting learning: None Referred/Supervised by: Rishi GELLER Billing Type: Initial Assess/15 min 2 units SIGNATURE: Sun Beal RD PATIENT NAME: Telma Tineo DATE: February 25, 2023 TIME: 1:45 PM documented in this encounterTwin City Hospital04-25-2023 Miscellaneous Notes* Telephone Encounter - Fernanda Macario RN - 02/19/2023 3:09 PM EDT Patient's son Timothy returned call and given provider's message below. Fernanda Macario RN * Telephone Encounter - Bobo Adams LPN - 02/19/2023 2:52 PM EDT Message left asking pt to contact the office for results. Bobo Adams LPN * Telephone Encounter - Danielle Rodrgiuez RN - 02/14/2023 2:34 PM EDT Left message for patient to call office. Danielle Rodriguez RN * Telephone Encounter - Sadia Ramsey APRN.NÉSTOR - 02/14/2023 2:20 PM EDT Please let me the patient know that her CT scan is normal. Continue to use the estrogen cream and follow-up if bleeding is still occurring after 1 month of using the vaginal cream. Sadia Ramsey APRN.NÉSTOR documented in this encounterTwin City Hospital04-21-2023 History of Present illness Narrative* Emma Mcnally, OD - 02/15/2023 4:27 PM EDT 1. Type 2 diabetes mellitus without complication, without long-term current use of insulin (HCC) Risk of diabetic changes and vision loss can be minimized by tight control of blood sugar, blood pressure, and cholesterol levels. Educated patient to continue care with primary care doctor and/or sales commissions analyst to maintain optimum levels as they are [...] 15, 2023 4:27 PM documented in this encounterTwin City Hospital04-19-2023 History of Present illness Narrative* Bobo Parham, RT(R) - 02/13/2023 11:20 AM EDT Radiology [...] 2023 TIME: 1:54 PM documented in this encounterTwin City Hospital04-14-2023 History of Present illness Narrative* Sadia Ramsey APRN.POLICE COMMANDING OFFICER - 02/08/2023 3:41 PM EDT Telma Tineo [...] L6 SAB0 IAB0 Ectopic0 Multiple0 Live Births0 Mussel Opener History LMP: Hysterectomy Age at Menarche: Age at First : Age at Menopause: Mussel Opener History Comments: Sexual Activity: Not Currently; No [...] external genitalia normal, normal Bartholin's glands, urethra, [place]'s glands, no vulvar lesions, physiologic discharge present, [...] - ICD9: V10.42, ICD10: Z85.42 Sadia Ramsey APRN.NÉSTOR Medical Decision Making: Problems: Moderate: New problem with uncertain prognosis Data: Unique test(s) ordered: 2 Risk: Low: Low risk from testing/treatment Moderate: Drug management Medical Decision Making Level: 4 - Moderate documented in this encounterTwin City Hospital03-31-2023 History of Present illness Narrative* Henok [...] ICD10: J45.20 Henok Martinez documented in this encounterTwin City Hospital01-27-2023 Miscellaneous Notes* Telephone Encounter - Nancy Mccain Ma - 11/23/2022 2:46 PM EST Left detailed message on Nancy Mccain Ma * Telephone Encounter - Henok Martinez [...] PCP. Cassy Evans LPN documented in this encounterTwin City Hospital01-27-2023 History of Present illness Narrative* Cassy [...] PCP. Cassy Evans LPN documented in this encounterTwin City Hospital01-26-2023 History of Present illness Narrative* Nancy Medley MD - 11/22/2022 8:00 AM EST . [facility] [place] Note Patient name: Telma Tineo PCP: Henok [...] DATE OF EXAM: Nov 20 2022 2:16PM [facility] 0541 - CT CHEST WO IVCON / [...] complication, without long-term current use of insulin ([facility] ALLERGIES Allergen Reactions Penicillins Anaphylaxis Tetracycline Rash [...] sooner with problems Nancy Medley MD [facility] [place] documented in this encounterTwin City Hospital01-24-2023 History of Present illness Narrative* Bobo Parham, RT(R) - 11/20/2022 1:40 PM EST Radiology [...] 20, 2022 3:59 PM documented in this encounterTwin City Hospital01-20-2023 Procedure note* JOSÉ MIGUEL Russell - [...] 2022 TIME: 1:45 PM documented in this encounterTwin City Hospital01-20-2023 History of Present illness Narrative* Nancy Medley MD - 11/16/2022 1:30 PM EST Images from the original note were not included. . [facility] [place] Note Patient name: Telma Tineo PCP: Henok [...] Abs Lymph 1.00 - 4.00 k/uL 2.00 [place]% % 8.4 Abs [place] <0.87 k/uL 0.73 Eosin% % 2.0 Abs [...] Abs Lymph 1.00 - 4.00 k/uL 2.00 [place]% % 8.4 Abs [place] <0.87 k/uL 0.73 Eosin% % 2.0 Abs [...] complication, without long-term current use of insulin ([facility]) ALLERGIES Allergen Reactions Penicillins Anaphylaxis Tetracycline Rash [...] uncomplicated -See #1 Nancy Medley MD [facility] [place] documented in this encounterTwin City Hospital01-20-2023 History of Present illness Narrative* JOSÉ MIGUEL Russell - 11/16/2022 1:11 PM EST PULM FUNCTION SMARTBLOCK: Provider: Nancy Medley MD Assisting Tech: JOSÉ MIGUEL Russell Exhaled Nitric Oxide: 1 documented in this encounterTwin City Hospital01-20-2023 Nurse Note* Gloria Cordoba LPN - 11/16/2022 1:08 PM EST Intake information documented in the prior visit with JOSÉ MIGUEL Russell today. documented in this encounterTwin City Hospital12-30-2022 History of Present illness Narrative* Henok [...] TABLET Henok Martinez MD documented in this encounterTwin City Hospital12-27-2022 Miscellaneous Notes* Telephone Encounter - [place] [facility] - 10/23/2022 3:56 PM EST Patient has been identified by name and date of : Yes Requested Prescriptions Pending Prescriptions Disp Refills apixaban (ELIQUIS) 2.5 mg tab(s) 60 tablet 3 Sig: Take 1 tablet by mouth twice daily. RX INSTRUCTIONS: Patient aware RX will be sent to pharmacy. No need to notify patient. [facility] documented in this encounterTwin City Hospital12-19-2022 Miscellaneous Notes* Telephone Encounter - Daina [...] Call if breathing worsens. documented in this encounterTwin City Hospital12-16-2022 History of Present illness Narrative* JOSÉ MIGUEL Russell - 10/12/2022 2:32 PM EST PULM FUNCTION SMARTBLOCK: Provider: Henok Martinez MD Assisting Tech: JOSÉ MIGUEL Russell Spirometry w/BD: 1 DLCO: 1 LV - Box: 1 documented in this encounterTwin City Hospital12-15-2022 Miscellaneous Notes* Telephone Encounter - Alison [...] and not around holidays. Orders changed to jonathan Castro Vice President Network Development documented in this encounterTwin City Hospital12-05-2022 History of Present illness Narrative* Henok [...] Abs Lymph 1.00 - 4.00 k/uL 2.00 [place]% % 8.4 Abs [place] <0.87 k/uL 0.73 Eosin% % 2.0 Abs [...] (DLCO) Henok Martinez MD documented in this encounterTwin City Hospital11-21-2022 Miscellaneous Notes* Telephone Encounter - Li Allison - 09/17/2022 2:41 PM EST Timothy, patients son informed new med sent in. Li Allison * Telephone Encounter - Henok Martinez MD - 09/17/2022 2:30 PM EST sent * Telephone Encounter - Li Allison - 09/17/2022 2:27 PM EST Clarified with son Timothy. Patient did in fact start taking the medication and then developed the drycough. [facility] Advise. Li Allison * Telephone Encounter [...] the pharmacy. Please contact Girma Aguirre at [phone]. Laura Jackson Pss documented in this encounterTwin City Hospital11-09-2022 History of Present illness Narrative* Monet [...] has had previous colonoscopy 4 years (in [place]) She is on eliquis for history of [...] entered by the nurse and reviewed by sc Nursing Notes: Deborah Montiel LPN 09/05/2022 1:47 [...] na Last Colonoscopy: 4 years ago in [place] Deborah Montiel LPN PHYSICAL EXAMINATION: General: The [...] patient was offered a surgery/procedure at a [facility]. The provider and patient have discussed in [...] patient will be scheduled for colonoscopy at [facility]. Monet Calvo MD documented in this encounterTwin City Hospital11-09-2022 Instructions* Patient Instructions* Monet Calvo MD [...] If you do not have a responsible box truck driver (family member or friend) with you [...] at your local pharmacy or drugstore pharmacy. 09/2019 Bowel Preparation Instructions for: Golytely, Nulytely, [...] your exam. 2 09/2019 documented in this encounterTwin City Hospital11-09-2022 Nurse Note* Deborah Montiel LPN - [...] na Last Colonoscopy: 4 years ago in [place] Deborah Montiel LPN documented in this encounterTwin City Hospital09-19-2022 Miscellaneous Notes* Telephone Encounter - Cris [...] RX INSTRUCTIONS: Patient had to change to [facility] and needs 90 days also. Patient aware RX will be sent to pharmacy. No need to notify patient. Dahlia Franco Pss documented in this encounterTwin City Hospital07-22-2022 Miscellaneous Notes* Telephone Encounter - Belinda Shields RN - 05/18/2022 5:00 PM EDT [...] 8.8 09/25/2021 10.2 Please advise. Thank you. Belinda Shields RN documented in this encounterTwin City Hospital06-27-2022 Miscellaneous Notes* Telephone Encounter - Belinda Shields RN - 04/23/2022 1:35 PM EDT [...] over covid s/s, daughter agreeable to contact [facility] for a virtual visit. documented in this encounterTwin City Hospital04-05-2022 Miscellaneous Notes* Telephone Encounter - Kerline Hogan LPN - 01/30/2022 2:35 PM EDT A 90 day supply was dispensed on 01/26/22 at [facility] pharmacy. Janet Hogan LPN * Telephone Encounter [...] Name:[employer] Phone number: Patient ID number:[id number] Pharmacy Name: [facility] Telephone number: [phone] * Telephone Encounter - Cris Garza Ma - 01/29/2022 10:58 AM EDT Left message for patient to return call. Cris Garza Ma * Telephone Encounter - Henok Martinez MD - 01/29/2022 8:06 AM EDT Sugars is still high. Make sure she picks up the metformin and continues the med. Lets recheck a1c in three months documented in this encounterTwin City Hospital04-01-2022 History of Present illness Narrative* Henok [...] Abs Lymph 1.00 - 4.00 k/uL 2.01 [place]% % 8.4 Abs [place] <0.87 k/uL 0.71 Eosin% % 1.7 Abs [...] above. Henok Martinez MD documented in this encounterTwin City Hospital06-01-2021 Evaluation note* Diagnosis Onset Date Resolution Status History of TIA (transient ischemic attack) acute Mild cognitive impairment [facility] Transient ischemic attack March, [facility] Work Phone: Evaluation note* Diagnosis History of CVA (cerebrovascular accident)- Primary Transient ischemic attack (TIA), 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 deficits Type 2 diabetes mellitus without complication, without long-term current use of insulin (HCC) Primary hypertension Unspecified essential hypertension Atrial myxoma Benign neoplasm of heart documented in this encounter [facility]* Diagnosis Type 2 diabetes mellitus without complication, without long-term current use of insulin (HCC)- Primary [facility]* Diagnosis Type 2 diabetes mellitus without complication, without long-term current use of insulin (HCC) [facility] encounter [facility]* Diagnosis Primary hypertension Unspecified essential hypertension documented in this encounter [facility]* Diagnosis Change in bowel habits- Primary Other symptoms involving digestive system documented in this encounter [facility]* Diagnosis Primary hypertension- Primary Unspecified essential hypertension [facility] encounter [facility]* Diagnosis 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 Primary hypertension Unspecified essential hypertension Type 2 diabetes mellitus without complication, without long-term current use of insulin (HCC) History of CVA (cerebrovascular accident) Transient ischemic attack (TIA), 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 deficits Mild intermittent asthma without complication Unspecified asthma documented [facility] encounter [facility]* Diagnosis Mild intermittent asthma without complication Unspecified asthma documented in this encounter [facility]* Diagnosis Mild intermittent asthma without complication Unspecified asthma documented in this encounter [facility]* Diagnosis Cough, unspecified type- Primary Primary hypertension Unspecified essential hypertension documented [facility] this encounter [facility]* Diagnosis Chronic cough Cough documented in this encounter [facility]* Diagnosis Chronic cough- Primary Cough Abnormal chest x-ray Other nonspecific abnormal finding of lung field Mild persistent asthma without complication Unspecified asthma documented [facility] this encounter [facility]* Diagnosis Bronchiectasis without complication (HCC)- Primary Bronchiectasis without acute exacerbation Mild intermittent asthma without complication Unspecified asthma documented in this encounter [facility]* Diagnosis Primary hypertension- Primary Unspecified essential hypertension documented in this encounter [facility]* Diagnosis Primary hypertension- Primary Unspecified essential [...] complication Unspecified asthma documented in this encounter [facility]* Diagnosis Vaginal bleeding- Primary Other specified noninflammatory disorder of vagina Pelvic and perineal pain Unspecified symptom associated with female genital organs History of uterine cancer Personal history of malignant neoplasm of other parts of uterus documented in this encounter [facility]* Diagnosis Type 2 diabetes mellitus without complication, without long-term current use of insulin (HCC)- Primary Pseudophakia of both eyes Lens replaced by other means Presbyopia documented in this encounter [facility]* Diagnosis Obesity, Class I, BMI 30-34.9- Primary Obesity, unspecified Type 2 diabetes mellitus without complication, without long-term current use of insulin (HCC) Dietary counseling Dietary surveillance and counseling documented in this encounter [facility]* Diagnosis Onset Date Resolution Status Atrial fibrillation acute Chest pain acute Essential hypertension chron ic Right atrial mass chronic [facility] Work Phone: Evaluation note* Diagnosis Primary hypertension- Primary Unspecified essential hypertension Type 2 diabetes mellitus without complication, without long-term current use of insulin ([facility] documented in this encounter [facility]* Diagnosis Primary hypertension- Primary Unspecified essential hypertension History of CVA (cerebrovascular accident) Transient ischemic attack (TIA), 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 deficits Atrial fibrillation, unspecified type ([facility]) documented in [facility]* Diagnosis 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 Tear film insufficiency, unspecified PCO (posterior capsular opacification), left After-cataract, unspecified Type 2 diabetes mellitus without complication, without long-term current use of insulin (HCC) Pseudophakia of both eyes Lens replaced by other means Presbyopia documented in this encounter [facility]* Diagnosis Pelvic and perineal pain Unspecified symptom associated with female genital organs documented in this encounter [facility]* Diagnosis Chronic cough Cough Abnormal chest x-ray Other nonspecific abnormal finding of lung field documented in this encounter [facility]* Diagnosis Cerebrovascular accident (CVA), unspecified mechanism (HCC)- Primary Atrial fibrillation, unspecified type (HCC) Primary hypertension Unspecified essential hypertension Atrial myxoma 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 neoplasm of heart 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 Long-term (current) [...] pain Otalgia, unspecified documented in this encounter [facility]* Diagnosis Type 2 diabetes mellitus without complication, without long-term current use of insulin (HCC)- Primary documented in this encounter [facility]* Diagnosis Cerebrovascular accident (CVA), unspecified mechanism ([facility])- Primary History of CVA (cerebrovascular accident) Transient ischemic attack (TIA), 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 deficits Primary hypertension Unspecified essential hypertension Atrial fibrillation, unspecified type (HCC) Atrial myxoma Benign neoplasm of heart Bronchiectasis without complication (HCC) Bronchiectasis without acute exacerbation Type 2 diabetes mellitus without complication, without long-term current use of insulin ([facility]) documented in this encounter [facility]* Diagnosis Primary hypertension Unspecified essential hypertension documented in this encounter [facility]* Diagnosis Diarrhea, unspecified type- Primary documented in this encounter [facility]* Diagnosis Sore throat- Primary Acute pharyngitis URI, acute Acute upper respiratory infections of unspecified site documented [facility] this encounter [facility]* Diagnosis Onset Date Resolution Status Atrial fibrillation acute Essential hypertension chron ic Right atrial mass chronic [facility] Work Phone: Evaluation note* Diagnosis Type 2 diabetes mellitus without complication, without long-term current use of insulin (HCC)- Primary Mild intermittent asthma without complication Unspecified asthma Bronchiectasis without complication (HCC) Bronchiectasis without acute exacerbation Bronchitis Bronchitis, not specified as acute or chronic Weight loss Loss of weight documented in this encounter [facility] note* Diagnosis Abnormal x-ray- Primary Other nonspecific (abnormal) findings on radiological and other examinations of body structure [facility] Diagnosis Type 2 diabetes mellitus without complication, without long-term current use of insulin (HCC)- Primary Leukocytosis, unspecified type Hyperkalemia Hyperpotassemia [facility] Diagnosis 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 Tear film insufficiency, unspecified PCO (posterior capsular opacification), left After-cataract, unspecified Type 2 diabetes mellitus without complication, without long-term current use of insulin (HCC) Pseudophakia of both eyes Lens replaced by other means Presbyopia [facility] Diagnosis Primary hypertension- Primary Unspecified essential hypertension Type 2 diabetes mellitus without complication, without long-term current use of insulin (HCC) Mild intermittent asthma without complication Unspecified asthma [facility] Diagnosis History of CVA (cerebrovascular accident) Transient ischemic attack (TIA), 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 deficits [facility] Diagnosis Anemia, unspecified type- Primary [facility] Diagnosis Mild intermittent asthma without complication- Primary Unspecified asthma Bronchiectasis without complication (HCC) Bronchiectasis without acute exacerbation Rib pain on right side Chest pain, unspecified Poorly controlled type 2 diabetes mellitus (HCC)- Primary Type II or unspecified type diabetes mellitus without mention of complication, not stated as uncontrolled [facility] Diagnosis Primary hypertension- Primary Unspecified essential [...] without residual deficits [facility] Diagnosis Primary hypertension- Primary Unspecified essential hypertension History of CVA (cerebrovascular accident) Transient ischemic attack (TIA), 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 deficits Atrial fibrillation, unspecified type (HCC) Abnormal x-ray Other nonspecific (abnormal) findings on radiological and other examinations of body structure [facility] Diagnosis Primary hypertension- Primary Unspecified essential hypertension History of CVA (cerebrovascular accident) Transient ischemic attack (TIA), 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 deficits Atrial fibrillation, unspecified type (HCC) Rib pain on right side Chest pain, unspecified [facility] Diagnosis Primary hypertension- Primary Unspecified essential hypertension History of CVA (cerebrovascular accident) Transient ischemic attack (TIA), 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 deficits Atrial fibrillation, unspecified type (HCC) Bronchitis Bronchitis, not specified as acute or chronic documented in this encounter [facility] note* Diagnosis Cough, unspecified type documented in this encounter [facility] note* Diagnosis Primary hypertension- Primary Unspecified essential hypertension History of CVA (cerebrovascular accident) Transient ischemic attack (TIA), 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 deficits Atrial fibrillation, unspecified type (HCC) Acute bronchitis, unspecified organism- Primary Oropharyngeal dysphagia Dysphagia, oropharyngeal phase documented in this encounter [facility] note* Diagnosis Primary hypertension- Primary Unspecified [...] (TIA), 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 deficits 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 Long-term (current) use of anticoagulants Epigastric pain Abdominal pain, epigastric Hemoptysis Hemoptysis, unspecified documented in this encounter [facility] note* Diagnosis Primary hypertension- Primary Unspecified essential hypertension History of CVA (cerebrovascular accident) Transient ischemic attack (TIA), 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 deficits Atrial fibrillation, unspecified type (HCC) Hemoptysis Hemoptysis, unspecified documented in this encounter [facility] note* Diagnosis Primary hypertension- Primary Unspecified essential hypertension History of CVA (cerebrovascular accident) Transient ischemic attack (TIA), 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 deficits Atrial fibrillation, unspecified type (HCC) Dysphagia, oropharyngeal phase- Primary documented in this encounter [facility] note* Diagnosis Primary hypertension- Primary Unspecified essential hypertension History of CVA (cerebrovascular accident) Transient ischemic attack (TIA), 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 deficits Atrial fibrillation, unspecified type (HCC) Oropharyngeal dysphagia Dysphagia, oropharyngeal phase documented in this encounter [facility] note* Diagnosis Primary hypertension- Primary Unspecified essential hypertension History of CVA (cerebrovascular accident) Transient ischemic attack (TIA), 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 deficits Atrial fibrillation, unspecified type (HCC) Epigastric pain Abdominal pain, epigastric Elevated lipase Other nonspecific abnormal serum enzyme levels [facility] Diagnosis Primary hypertension- Primary Unspecified essential [...] serum enzyme levels documented in this encounter [facility] note* Diagnosis Primary hypertension- Primary Unspecified essential hypertension History of CVA (cerebrovascular accident) Transient ischemic attack (TIA), 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 deficits Atrial fibrillation, unspecified type (HCC) Mild persistent asthma without complication- Primary Unspecified asthma Cough, unspecified type Hemoptysis Hemoptysis, unspecified Bronchiectasis without complication (HCC) Bronchiectasis without acute exacerbation Dysphagia, unspecified type documented in this encounter [facility] note* Diagnosis Primary hypertension- Primary Unspecified essential hypertension History of CVA (cerebrovascular accident) Transient ischemic attack (TIA), 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 deficits Atrial fibrillation, unspecified type (HCC) Primary hypertension Unspecified essential hypertension documented in this encounter [facility] note* Diagnosis Primary hypertension- Primary Unspecified essential hypertension History of CVA (cerebrovascular accident) Transient ischemic attack (TIA), 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 deficits Atrial fibrillation, unspecified type (HCC) Type 2 diabetes mellitus without complication, without long-term current use of insulin (HCC)- Primary [facility] Diagnosis Primary hypertension- Primary Unspecified essential hypertension History of CVA (cerebrovascular accident) Transient ischemic attack (TIA), 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 deficits Atrial fibrillation, unspecified type (HCC) 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)- Primary Malignant neoplasm of head of pancreas documented in this encounter [facility] note* Diagnosis Onset Date Resolution Status [...] h hyperglycemia acute January 10, 2025 12:57am [facility] Work Phone: Evaluation note* Diagnosis Primary hypertension- Primary Unspecified essential hypertension History of CVA (cerebrovascular accident) Transient ischemic attack (TIA), 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 deficits Atrial fibrillation, unspecified type (HCC) 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) Malignant neoplasm of head of pancreas [facility] Diagnosis Primary hypertension- Primary Unspecified essential hypertension History of CVA (cerebrovascular accident) Transient ischemic attack (TIA), 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 deficits Atrial fibrillation, unspecified type (HCC) Encounter for education- Primary Counseling NOS 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) Malignant neoplasm of head of pancreas documented [facility] Diagnosis Primary hypertension- Primary Unspecified essential hypertension History of CVA (cerebrovascular accident) Transient ischemic attack (TIA), 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 deficits Atrial fibrillation, unspecified type (HCC) 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)- Primary Malignant neoplasm of head of pancreas [facility] Diagnosis Primary hypertension- Primary Unspecified essential hypertension History of CVA (cerebrovascular accident) Transient ischemic attack (TIA), 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 deficits Atrial fibrillation, unspecified type (HCC) Type 2 diabetes mellitus with hyperglycemia, with long-term current use of insulin (HCC)- Primary 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) Malignant neoplasm of head of pancreas [facility] Diagnosis Primary hypertension- Primary Unspecified essential hypertension History of CVA (cerebrovascular accident) Transient ischemic attack (TIA), 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 deficits Atrial fibrillation, unspecified type (HCC) Pancreatic adenocarcinoma (HCC)- Primary Malignant 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, part unspecified detention current use of anticoagulant therapy Long-term (current) [...] head of pancreas [facility] Primary hypertension- Primary Unspecified essential hypertension History of CVA (cerebrovascular accident) Transient ischemic attack (TIA), 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 deficits Atrial fibrillation, unspecified type (HCC) Pancreatic adenocarcinoma (HCC)- Primary Malignant 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, part unspecified 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) Malignant neoplasm of head of pancreas [facility] Diagnosis Primary hypertension- Primary Unspecified essential [...] head [facility] pancreas [facility] Diagnosis Primary hypertension- Primary Unspecified essential [...] [facility] Primary hypertension- Primary Unspecified essential hypertension History of CVA (cerebrovascular accident) Transient ischemic attack (TIA), 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 deficits Atrial fibrillation, unspecified type (HCC) 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)- Primary Malignant neoplasm of head of pancreas 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) Malignant neoplasm of head of pancreas [facility] Diagnosis Primary hypertension- Primary Unspecified essential hypertension History of CVA (cerebrovascular accident) Transient ischemic attack (TIA), 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 deficits Atrial fibrillation, unspecified type (HCC) 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) Malignant neoplasm of head of pancreas 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) Malignant neoplasm of head of pancreas [facility] Diagnosis Primary hypertension- Primary Unspecified essential [...] head of pancreas [facility] Diagnosis Primary hypertension- Primary Unspecified essential [...] head of pancreas [facility] Diagnosis Primary hypertension- Primary Unspecified essential hypertension History of CVA (cerebrovascular accident) Transient ischemic attack (TIA), 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 deficits Atrial fibrillation, unspecified type (HCC) Pancreatic adenocarcinoma (HCC)- Primary Malignant 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, part unspecified [facility] Diagnosis Primary hypertension- Primary Unspecified essential hypertension History of CVA (cerebrovascular accident) Transient ischemic attack (TIA), 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 deficits Atrial fibrillation, unspecified type (HCC) RUQ pain- Primary Abdominal pain, right upper quadrant [facility] Diagnosis Primary hypertension- Primary Unspecified essential [...] (HCC) Malignant neoplasm of head of pancreas 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 Long-term (current) use of anticoagulants Type 2 diabetes mellitus with hyperglycemia, with long-term current use of insulin (HCC) [facility] Primary hypertension- Primary Unspecified essential hypertension History of CVA (cerebrovascular accident) Transient ischemic attack (TIA), 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 deficits Atrial fibrillation, unspecified type (HCC) Type 2 diabetes mellitus without complication, without long-term current use of insulin (HCC) [facility] Primary hypertension- Primary Unspecified essential hypertension History of CVA (cerebrovascular accident) Transient ischemic attack (TIA), 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 deficits Atrial fibrillation, unspecified type (HCC) Primary hypertension Unspecified essential hypertension Type 2 diabetes mellitus without complication, without long-term current use of insulin (HCC) [facility] Diagnosis Primary hypertension- Primary Unspecified essential hypertension History of CVA (cerebrovascular accident) Transient ischemic attack (TIA), 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 deficits Atrial fibrillation, unspecified type (HCC) History of CVA (cerebrovascular accident) Transient ischemic attack (TIA), 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 deficits Type 2 diabetes mellitus with hyperglycemia, with long-term current use of insulin (HCC) [facility] Diagnosis Primary hypertension- Primary Unspecified essential hypertension History of CVA (cerebrovascular accident) Transient ischemic attack (TIA), 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 deficits Atrial fibrillation, unspecified type (HCC) 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)- Primary Malignant neoplasm of head of pancreas Adenocarcinoma of head of pancreas (HCC) [facility] Diagnosis Primary hypertension- Primary Unspecified essential hypertension History of CVA (cerebrovascular accident) Transient ischemic attack (TIA), 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 deficits Atrial fibrillation, unspecified type (HCC) 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) Malignant neoplasm of head of pancreas Adenocarcinoma of head of pancreas (HCC) [facility] Onset Date Resolution Status Admit Date Cholangiolitis acute May 3:58am DNR no code (do not resuscitate) acu te May 31, 2025 3:58am Hyperbilirubinemia acute May 31, 2025 3:58am Hypokalemia acute May 31, 025 3:58am Hyponatremia acute May 31, 2025 3:58am Leukocytosis acute May 31, 2025 3:58am Pancreatic cancer acute May 31, 2025 3:58am Transaminitis acute May 31, 2025 3:58am Type 2 diabetes mellitus wit h hyperglycemia acute May 31, 2025 3:58am [facility] Work Phone: Hospital Discharge instructions Additional Instructions Your work-up today showed no signs of endorgan damage which is damage to your brain heart or kidneys from the elevated blood pressure. Continue all of your medications as previously directed and follow-up [facility] Phone: Reason for referral (narrative)* Outpatient Procedure (Routine) - Authorized Specialty Diagnoses / Procedures Referred By Kelli t Referred To Contact [facility] Diagnoses Change in bowel habits Procedures COLONOSCOPY DIAGNOSTIC COLONOSCOPY DIAGNOSTIC COLONOSCOPY DIAGNOSTIC COLONOSCOPY FLX DX W/COLLJ SPEC WHEN PFRMD Monet Calvo MD [address] [place] [address] [facility] [place] [address] [place] [address] Referral ID Status Reason Start Date Expiration Date Visits Requested Visits Authorized [id number] Authorized Auto-Generat ed Referral 09/05/2022 09/05/2023 1 1 [facility] for referral (narrative)* Outpatient Procedure (Routine) - Authorized Specialty Diagnoses / Procedures Referred By Contac t Referred To Contact [facility] Diagnoses Mild intermittent asthma without complication Procedures LUNG DIFFUSION CAPACITY (DLCO) DIFFUSING CAPACITY Henok Martinez MD [address] [place] [address] [facility] [place] [address] [place] [address] Referral ID Status Reason Start Date Expiration Date Visits Requested Visits Authorized [id number] Authorized Auto-Generat ed Referral 10/01/2022 10/31/2023 1 1 * Outpatient Procedure (Routine) - Authorized Specialty Diagnoses / Procedures Referred By Contac t Referred To Contact [facility] Diagnoses Mild intermittent asthma without complication Procedures LUNG VOLUMES Henok Martinez MD [address] [place] [address] [address] Referral ID Status Reason Start Date Expiration Date Visits Requested Visits Authorized [id number] Authorized Auto-Generat ed Referral 10/01/2022 10/31/2023 1 1 * Outpatient Procedure (Routine) - Authorized Specialty Diagnoses / Procedures Referred By Contac t Referred To Contact [facility] Diagnoses Mild intermittent asthma without complication Procedures SPIROMETRY - BASELINE AND POST DILATOR BRNCDILAT RSPSE SPMTRY PRE&POST-BRNCDILAT ADMN Henok Martinez MD [address] [place] [address] [address] Referral ID Status Reason Start Date Expiration Date Visits Requested Visits Authorized [id number] Authorized Auto-Generat ed Referral 10/01/2022 10/31/2023 1 1 [facility] for referral (narrative)* Diagnostic Procedure Only (Routine) - Authorized Specialty Diagnoses / Procedures Referred By Contac t Referred To Contact XR IMAGING Diagnoses Rib pain on right side Procedures XR RIBS/CHEST 3V AP RIB/OBLS/CXR RIGHT RADEX RIBS UNI W/POSTEROANT CH MINIMUM 3 VIEWS Nancy Medley MD [address] [place] [address] Xr Imaging [id number] Referral ID Status Reason Start Date Expiration Date Visits Requested Visits Authorized [id number] Authorized Auto-Generat ed Referral 06/05/2024 07/05/2025 1 1 [facility] for referral (narrative)* Diagnostic Procedure Only (Routine) - Closed Specialty Diagnoses / Procedures Referred By Contac t Referred To Contact XR IMAGING Diagnoses Rib pain on right side Procedures XR RIBS/CHEST 3V AP RIB/OBLS/CXR RIGHT RADEX RIBS UNI W/POSTEROANT CH MINIMUM 3 VIEWS Nancy Medley MD [address] [place] [address] [place] [address] Referral ID Status Reason Start Date Expiration Date V isits Requested Visits Authorized [id number] Closed Auto-Generate d Referral 06/05/2024 07/05/2025 1 1 [facility] for referral (narrative)* Diagnostic Procedure Only (Routine) - Authorized Specialty Diagnoses / Procedures [facility] Diagnoses Oropharyngeal dysphagia Procedures XR MODIFIED BARIUM SWALLOW W SPEECH THERAPY XR MODIFIED BARIUM SWALLOW W SPEECH THERAPY RADIOLOGIC EXAM SWALLOW FUNCTION CONTRAST STUDY Virginia Reina APRN.[employer] [address] [id number] [place] [address] Referral ID Status Reason Start Date Expiration Date Visits Requested Visits Authorized [id number] Authorized Auto-Generat ed Referral 11/12/2025 1 1 [facility] for referral (narrative)* Diagnostic Procedure Only (Routine) - Closed Specialty Diagnoses / Procedures [facility] To [facility] X[facility] IMAGING Diagnoses Oropharyngeal dysphagia Procedures XR MODIFIED BARIUM SWALLOW W SPEECH THERAPY XR MODIFIED BARIUM SWALLOW W SPEECH THERAPY RADIOLOGIC EXAM SWALLOW FUNCTION CONTRAST STUDY Virginia Reina APRN.CNP [address] [place] [address] [place] [address] Referral ID Status Reason Start Date Expiration Date V isits Requested Visits Authorized [id number] Closed Auto-Generate d Referral 10/13/2024 11/12/2025 1 1 [facility] for referral (narrative)No reason for referral information availableWHol[facility] Work Phone: Reason for visit Narrative* Diagnostic Procedure Only (Routine) - Closed Specialty Diagnoses / Procedures Referred By Contac t Referred To Contact XR IMAGING Diagnoses Rib pain on right side Procedures XR RIBS/CHEST 3V AP RIB/OBLS/CXR RIGHT RADEX RIBS UNI W/POSTEROANT CH MINIMUM 3 VIEWS Nancy Medley MD [address] [facility] [place] [address] [place] [address] Referral ID Status Reason Start Date Expiration Date V isits Requested Visits Authorized [id number] Closed Auto-Generate d Referral 06/05/2024 07/05/2025 1 1 [facility] for visit Narrative* Diagnostic Procedure Only (Routine) - Closed Specialty Diagnoses / Procedures Referred By Contac t Referred To Contact XR IMAGING Diagnoses Oropharyngeal dysphagia Procedures XR MODIFIED BARIUM SWALLOW W SPEECH THERAPY XR MODIFIED BARIUM SWALLOW W SPEECH THERAPY RADIOLOGIC EXAM SWALLOW FUNCTION CONTRAST STUDY Virginia Reina APRN.[employer] [address] [place] [address] [place] [address] Referral ID Status Reason Start Date Expiration Date V isits Requested Visits Authorized [id number] Closed Auto-Generate d Referral 10/13/2024 11/12/2025 1 1 [facility] for visit Narrative* Diagnostic Procedure Only (Routine) - Closed Specialty Diagnoses / Procedures Referred By Contac t Referred To Contact US IMAGING Diagnoses Epigastric pain Elevated lipase Procedures US ABD RIGHT UPPER QUADRANT US ABDOMINAL REAL TIME W/IMAGE LIMITED Henok Martinez MD [address] [place] [address] [place] [address] Referral ID Status Reason Start Date Expiration Date V isits Requested Visits Authorized [id number] Closed Auto-Generate d Referral 11/06/2024 12/06/2025 1 1 [facility] for visit Narrative* MRI/CT (Routine) - Closed Specialty Diagnoses / Procedures Referred By Contac t Referred To Contact CT IMAGING Diagnoses 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) Adenocarcinoma of head of pancreas (HCC) Procedures CT CHEST W IVCON DIAGNOSTIC COMPUTED TOMOGRAPHY THORAX W/CONTRAST Juan Miguel Yusuf MD [address] [place] [address] Phone: tel: CT IMAGING [id number] Referral ID Status Reason Start Date Expiration Date V isits Requested Visits Authorized [id number] Closed Auto-Generate d Referral 05/25/2025 06/24/2026 1 1 [facility] Reason for Referral Specialty Diagnoses / Procedures Referred By Contac t Referred To Contact [facility]monary [facility] Medicine Diagnoses Cough, unspecified type Procedures CONSULT TO PULM/CRITICAL CARE OFFICE/OUTPATIENT [facility] 60-74 MINUTES Henok Martinez MD [address] [place] [address] Referral ID Status Reason Start Date Expiration Date Visits Requested Visits Authorized [id number] Authorized PCP Requested Referral 2 10/26/2023 1 1 Specialty Diagnoses / Procedures Referred By Contac t Referred To Contact CT IMAGING Diagnoses Chronic cough Abnormal chest x-ray Procedures CT CHEST WO IVCON DIAGNOSTIC COMPUTED TOMOGRAPHY THORAX W/O CNTRST Nancy Medley MD [address] [place] [address] Ct Imaging Referral ID Status Reason Start Date Expiration Date Visits Requested Visits Authorized [id number] Authorized Auto-Generat ed Referral 11/16/2022 12/16/2023 1 1 Specialty Diagnoses / Procedures Referred By Contac t Referred To Contact [facility] Diagnoses Chronic cough Procedures NITRIC OXIDE, EXHALED NITRIC OXIDE GAS DETERMINATION Nancy Medley MD [address] [facility] [place] [address] Respiratory [place] [address] [place] [address] Referral ID Status Reason Start Date Expiration Date V isits Requested Visits Authorized [id number] Closed Auto-Generate d Referral 11/16/2022 12/16/2023 1 1 Specialty Diagnoses / Procedures Referred By Contac t Referred To Contact Cardiology Diagnoses Atrial myxoma Procedures CONSULT TO CARDIOLOGY OFFICE/OUTPATIENT [facility] 60-74 MINUTES Henok Martinez MD [address] [place] [address] Referral ID Status Reason Start Date Expiration Date Visits Requested Visits Authorized [id number] Authorized PCP Requested Referral 01/25/2023 01/25/2024 1 1 Specialty Diagnoses / Procedures Referred By Contac t Referred To Contact Gynecology Diagnoses History of uterine cancer Procedures CONSULT TO GYNECOLOGY OFFICE/OUTPATIENT [facility] MDM 60-74 MINUTES Henok Martinez MD [address] [place] [address] Referral ID Status Reason Start Date Expiration Date Visits Requested Visits Authorized [id number] Authorized PCP Requested Referral Auto-Generate d Referral 01/25/2023 01/25/2024 1 1 Specialty Diagnoses / Procedures Referred By Contac t Referred To Contact Ophthalmology Diagnoses Type 2 diabetes mellitus without complication, without long-term current use of insulin (HCC) Procedures CONSULT TO OPHTHALMOLOGY OFFICE/OUTPATIENT [facility] MDM 60-74 MINUTES Henok Martinez MD [address] [place] [address] Referral ID Status Reason Start Date Expiration Date Visits Requested Visits Authorized [id number] Authorized PCP Requested Referral 01/25/2023 01/25/2024 1 1 Specialty Diagnoses / Procedures Referred By Contac t Referred To Contact Nutrition Diagnoses Type 2 diabetes mellitus without complication, without long-term current use of insulin (HCC) Procedures CONSULT TO NUTRITION THERAPY MEDICAL NUTRITION ASSMT&IVNTJ INDIV EACH 15 [place] MEDICAL NUTRITION ASSMT&IVNTJ INDIV EACH 15 [facility] MEDICAL NUTRITION ASSMT&IVNTJ INDIV EACH 15 [facility] MEDICAL NUTRITION ASSMT&IVNTJ INDIV EACH 15 [facility] Henok Martinez MD [address] [place] [address] Referral ID Status Reason Start Date Expiration Date Visits Requested Visits Authorized [id number] Authorized PCP Requested Referral 01/25/2023 01/25/2024 1 1 Specialty Diagnoses / Procedures Referred By Contac t Referred To Contact CT IMAGING Diagnoses Pelvic and perineal pain Procedures CT PELVIS W IVCON CT PELVIS W/CONTRAST MATERIAL Sadia Ramsey APRN.[employer]ICER [address] [place] [address] Ct Imaging Referral ID Status Reason Start Date Expiration Date Visits Requested Visits Authorized [id number] Authorized Auto-Generat ed Referral 02/08/2023 03/09/2024 1 1 Specialty Diagnoses / Procedures Referred By Contac t Referred To Contact CT IMAGING Diagnoses Pelvic and perineal pain Procedures CT PELVIS W IVCON CT PELVIS W/CONTRAST MATERIAL Sadia Ramsey APRN.[employer]ICE COMMANDING OFFICER [address] [place] [address] Ct Imaging [place] [address] Referral ID Status Reason Start Date Expiration Date V isits Requested Visits Authorized [id number] Closed Auto-Generate d Referral 02/08/2023 03/09/2024 1 1 Specialty Diagnoses / Procedures Referred By Contac t Referred To Contact CT IMAGING Diagnoses Chronic cough Abnormal chest x-ray Procedures CT CHEST WO IVCON DIAGNOSTIC COMPUTED TOMOGRAPHY THORAX W/O Nancy Hendrix MD [address] [place] [id number] Ct Imaging [place] [address] Referral ID Status Reason Start Date Expiration Date V isits Requested Visits Authorized [id number] Closed Auto-Generate d Referral 11/16/2022 12/16/2023 1 1 Specialty Diagnoses / Procedures Referred By Contac t Referred To Contact Ent - Otolaryngology Diagnoses Pill dysphagia Left ear pain Procedures CONSULT TO ENT OFFICE/OUTPATIENT [facility] 60-74 MINUTES Belinda Muller PA-C [address] [place] [id number] Referral ID Status Reason Start Date Expiration Date Visits Requested Visits Authorized [id number] Authorized PCP Requested Referral 09/05/2023 09/04/2024 1 1 Specialty Diagnoses / Procedures Referred By Contac t Referred To Contact Endocrinology Diagnoses Type 2 diabetes mellitus without complication, without long-term current use of insulin (HCC) Procedures CONSULT TO ENDOCRINOLOGY OFFICE/OUTPATIENT [facility] MDM 60 MINUTES Henok Martinez MD [address] [place] [address] Referral ID Status Reason Start Date Expiration Date Visits Requested Visits Authorized [id number] Authorized PCP Requested Referral 03/05/2024 03/05/2025 1 1 Specialty Diagnoses / Procedures Referred By Contac t Referred To Contact [facility] Diagnoses Cervical radicular pain Procedures CONSULT TO PHYSICAL THERAPY PHYSICAL THERAPY EVALUATION HIGH COMPLEX 45 MINS Henok Martinez MD [address] [place] [address] [facility] [place] [address] [place] [address] Referral ID Status Reason Start Date Expiration Date Visits Requested Visits Authorized [id number] Authorized PCP Requested Referral Auto-Generate d Referral 07/01/2024 07/01/2025 99 99 Specialty Diagnoses / Procedures Referred By Contac t Referred To Contact Pulmonary and Critical Care Medicine Diagnoses Hemoptysis Procedures CONSULT TO PULM/CRITICAL CARE OFFICE/OUTPATIENT [facility] 60 [place] [address] [place] [address] Referral ID Status Reason Start Date Expiration Date Visits Requested Visits Authorized [id number] Authorized PCP Requested Referral 11/04/2024 11/04/2025 1 1 Specialty Diagnoses / Procedures Referred By Contac t Referred To Contact US IMAGING Diagnoses Epigastric pain Procedures US ABD RIGHT UPPER QUADRANT US ABDOMINAL REAL TIME W/IMAGE LIMITED Henok Martinez MD [address] [place] [address] [place] [address] Referral ID Status Reason Start Date Expiration Date Visits Requested Visits Authorized [id number] Authorized Auto-Generat ed Referral 11/04/2024 12/04/2025 1 1 Referral ID Status Reason Start Date Expiration Date Visits Requested Visits Authorized [id number] Authorized PCP Requested Referral 11/06/2024 11/06/2025 1 1 Specialty Diagnoses / Procedures Referred By Contac t Referred To Contact US IMAGING Diagnoses Epigastric pain Elevated lipase Procedures US ABD RIGHT UPPER QUADRANT US ABDOMINAL REAL TIME W/IMAGE LIMITED Henok Martinez MD [address] [place] [address] [place] [address] Referral ID Status Reason Start Date Expiration Date V isits Requested Visits Authorized [id number] Closed Auto-Generate d Referral 11/06/2024 12/06/2025 1 [...] attack Chief Complaint 6 m fu w SHERIFF per PT REQ Weakness Reason for Visit [...] with hyperglyce keiry January 10, 2025 2:16am Chief Complaint Admit Date ACUTE CHOLANGITIS WITH HYPERBILIRUBINEMI A May 31, 2025 3:58am Reason for Visit Admit Date Cholangiolitis May 31, 2025 3:5 8am DNR no code (do not resuscitate) May 31, 2025 3:58am Hyperbilirubinemia May 31, 2025 3:5 8am Hypokalemia May 31, 2025 3:5 8am Hyponatremia May 31, 2025 3:5 8am Leukocytosis May 31, 2025 3:5 8am Pancreatic cancer May 31, 2025 3:5 8am Transaminitis May 31, 2025 3:5 8am Type 2 diabetes mellitus with hyperglyce keiry May 31, 2025 3:58am Family History Relationship Condition Age at Onset [...] Will No August 20 1:38pm Power of Health Sciences Program Coordinator No August 20, 2021 1:38pm Advance Directive Response Recorded Date/ Time Advance Directives No March 18 11:33am Living Will No March 18, 2023 1 1:33am Power of Health Sciences Program Coordinator No March 18, 2023 11:33am Advance Directive Response Recorded Date/ Time Advance Directives No March 18 11:33am Living Will No March 30, 2023 9 :37pm Power of Health Sciences Program Coordinator No March 30, 2023 9:37pm Advance Directive Response Recorded Date/ Time Advance Directives No March 18 11:33am Living Will No April 22, 2023 5:09pm Power of Health Sciences Program Coordinator No April 22 5:09pm Advance Directive Response Recorded Date/ Time Advance Directives No March 18 10:33am Living Will No July 30 3:22pm Power of Health Sciences Program Coordinator No July 30, 023 3:22pm Advance Directive Response Recorded Date/ Time Advance Directives No March 18 11:33am Living Will No February 25, 2024 3:15pm Power of Health Sciences Program Coordinator No February 24 3:15pm Date Activated Date Inactivated Comments 01/15/2025 2:04 AM Date Activated Date Inactivated Comments 01/15/2025 2:04 AM Question Answer Comments Full Code Order Discussed With: Patient Advance Directive Response Recorded Date/ Time Living Will No June 25 3:46pm Power of Health Sciences Program Coordinator No June 25 3:46pm Living Will No January 09, 2025 6:51pm Power of Health Sciences Program Coordinator No January 09 6:51pm Advance Directives No March 18 11:33am Advance Directive Response Recorded Date/ Time Living Will No June 25 3:46pm Do you have a Healthcare Power of Health Sciences Program Coordinator? No June 25, 2024 3:46pm Living Will No January 10, 2025 2:58am Do you have a Healthcare Power of Health Sciences Program Coordinator? No January 10, 2025 2:58am Advance Directives No March 18 11:33am Date Activated Date Inactivated Comments 01/15/2025 2:04 AM 01/23/2025 7:02 PM Date Activated Date Inactivated Comments 02/10/2025 9:34 PM 02/14/2025 5:41 PM Date Activated Date Inactivated Comments 01/15/2025 2:04 AM 01/23/2025 7:02 PM Question Answer Comments Full Code Order Discussed With: Patient Advance Directive Response Recorded Date/ Time Do you have a Healthcare Power of Health Sciences Program Coordinator? No May 30, 2025 9:42pm Advance Directives No March 18 11:33am Summary Purpose Additional Source Comments Source Comments (unrecognize d section and content) In the event this informatio n is protected by the Federal Confidentiality of Alcohol and Drug Abuse Patient Records regulations: The Federal rules restrict any use of the information to criminally investigate or prosecute any alcohol or drug abuse patient.[facility] the event this information is protected by the Federal Confidentiality of Alcohol and Drug Abuse Patient Records regulations: The Federal rules restrict any use of the information to criminally investigate or prosecute any alcohol or drug abuse patient.[facility]In the event this information is protected by the Federal Confidentiality of Alcohol and Drug Abuse Patient Records regulations: The Federal rules restrict any use of the information to criminally investigate or prosecute any alcohol or drug abuse patient.[facility]In the event this information is protected by the Federal Confidentiality of Alcohol and Drug Abuse Patient Records regulations: The Federal rules restrict any use of the information to criminally investigate or prosecute any alcohol or drug abuse patient.[facility]In the event this information is protected by the Federal Confidentiality of Alcohol and Drug Abuse Patient Records regulations: The Federal rules restrict any use of the information to criminally investigate or prosecute any alcohol or drug abuse patient.[facility]In the event this information is protected by the Federal Confidentiality of Alcohol and Drug Abuse Patient Records regulations: The Federal rules restrict any use of the information to criminally investigate or prosecute any alcohol or drug abuse patient.[facility]In the event this information is protected by the Federal Confidentiality of Alcohol and Drug Abuse Patient Records regulations: The Federal rules restrict any use of the information to criminally investigate or prosecute any alcohol or drug abuse patient.[facility] HospitalIn the event this information is protected by the Federal Confidentiality of Alcohol and Drug Abuse Patient Records regulations: The Federal rules restrict any use of the information to criminally investigate or prosecute any alcohol or drug abuse patient.[facility]In the event this information is protected by the Federal Confidentiality of Alcohol and Drug Abuse Patient Records regulations: The Federal rules restrict any use of the information to criminally investigate or prosecute any alcohol or drug abuse patient.[facility] HospitalIn the event this information is protected by the Federal Confidentiality of Alcohol and Drug Abuse Patient Records regulations: The Federal rules restrict any use of the information to criminally investigate or prosecute any alcohol or drug abuse patient.[facility] HospitalIn the event this information is protected by the Federal Confidentiality of Alcohol and Drug Abuse Patient Records regulations: The Federal rules restrict any use of the information to criminally investigate or prosecute any alcohol or drug abuse patient.[facility] HospitalIn the event this information is protected by the Federal Confidentiality of Alcohol and Drug Abuse Patient Records regulations: The Federal rules restrict any use of the information to criminally investigate or prosecute any alcohol or drug abuse patient.[facility] HospitalIn the event this information is protected by the Federal Confidentiality of Alcohol and Drug Abuse Patient Records regulations: The Federal rules restrict any use of the information to criminally investigate or prosecute any alcohol or drug abuse patient.[facility] HospitalIn the event this information is protected by the Federal Confidentiality of Alcohol and Drug Abuse Patient Records regulations: The Federal rules restrict any use of the information to criminally investigate or prosecute any alcohol or drug abuse patient.[facility] HospitalIn the event this information is protected by the Federal Confidentiality of Alcohol and Drug Abuse Patient Records regulations: The Federal rules restrict any use of the information to criminally investigate or prosecute any alcohol or drug abuse patient.[facility] HospitalIn the event this information is protected by the Federal Confidentiality of Alcohol and Drug Abuse Patient Records regulations: The Federal rules restrict any use of the information to criminally investigate or prosecute any alcohol or drug abuse patient.[facility] HospitalIn the event this information is protected by the Federal Confidentiality of Alcohol and Drug Abuse Patient Records regulations: The Federal rules restrict any use of the information to criminally investigate or prosecute any alcohol or drug abuse patient.[facility] HospitalIn the event this information is protected by the Federal Confidentiality of Alcohol and Drug Abuse Patient Records regulations: The Federal rules restrict any use of the information to criminally investigate or prosecute any alcohol or drug abuse patient.[facility] HospitalIn the event this information is protected by the Federal Confidentiality of Alcohol and Drug Abuse Patient Records regulations: The Federal rules restrict any use of the information to criminally investigate or prosecute any alcohol or drug abuse patient.[facility] HospitalIn the event this information is protected by the Federal Confidentiality of Alcohol and Drug Abuse Patient Records regulations: The Federal rules restrict any use of the information to criminally investigate or prosecute any alcohol or drug abuse patient.[facility] HospitalIn the event this information is protected by the Federal Confidentiality of Alcohol and Drug Abuse Patient Records regulations: The Federal rules restrict any use of the information to criminally investigate or prosecute any alcohol or drug abuse patient.[facility] HospitalIn the event this information is protected by the Federal Confidentiality of Alcohol and Drug Abuse Patient Records regulations: The Federal rules restrict any use of the information to criminally investigate or prosecute any alcohol or drug abuse patient.[facility] HospitalIn the event this information is protected by the Federal Confidentiality of Alcohol and Drug Abuse Patient Records regulations: The Federal rules restrict any use of the information to criminally investigate or prosecute any alcohol or drug abuse patient.[facility] HospitalIn the event this information is protected by the Federal Confidentiality of Alcohol and Drug Abuse Patient Records regulations: The Federal rules restrict any use of the information to criminally investigate or prosecute any alcohol or drug abuse patient.[facility] HospitalIn the event this information is protected by the Federal Confidentiality of Alcohol and Drug Abuse Patient Records regulations: The Federal rules restrict any use of the information to criminally investigate or prosecute any alcohol or drug abuse patient.[facility] HospitalIn the event this information is protected by the Federal Confidentiality of Alcohol and Drug Abuse Patient Records regulations: The Federal rules restrict any use of the information to criminally investigate or prosecute any alcohol or drug abuse patient.[facility] HospitalIn the event this information is protected by the Federal Confidentiality of Alcohol and Drug Abuse Patient Records regulations: The Federal rules restrict any use of the information to criminally investigate or prosecute any alcohol or drug abuse patient.[facility] HospitalIn the event this information is protected by the Federal Confidentiality of Alcohol and Drug Abuse Patient Records regulations: The Federal rules restrict any use of the information to criminally investigate or prosecute any alcohol or drug abuse patient.[facility] HospitalIn the event this information is protected by the Federal Confidentiality of Alcohol and Drug Abuse Patient Records regulations: The Federal rules restrict any use of the information to criminally investigate or prosecute any alcohol or drug abuse patient.[facility] HospitalIn the event this information is protected by the Federal Confidentiality of Alcohol and Drug Abuse Patient Records regulations: The Federal rules restrict any use of the information to criminally investigate or prosecute any alcohol or drug abuse patient.[facility] HospitalIn the event this information is protected by the Federal Confidentiality of Alcohol and Drug Abuse Patient Records regulations: The Federal rules restrict any use of the information to criminally investigate or prosecute any alcohol or drug abuse patient.[facility] HospitalIn the event this information is protected by the Federal Confidentiality of Alcohol and Drug Abuse Patient Records regulations: The Federal rules restrict any use of the information to criminally investigate or prosecute any alcohol or drug abuse patient.[facility] HospitalIn the event this information is protected by the Federal Confidentiality of Alcohol and Drug Abuse Patient Records regulations: The Federal rules restrict any use of the information to criminally investigate or prosecute any alcohol or drug abuse patient.[facility] HospitalIn the event this information is protected by the Federal Confidentiality of Alcohol and Drug Abuse Patient Records regulations: The Federal rules restrict any use of the information to criminally investigate or prosecute any alcohol or drug abuse patient.[facility] HospitalIn the event this information is protected by the Federal Confidentiality of Alcohol and Drug Abuse Patient Records regulations: The Federal rules restrict any use of the information to criminally investigate or prosecute any alcohol or drug abuse patient.[facility] HospitalIn the event this information is protected by the Federal Confidentiality of Alcohol and Drug Abuse Patient Records regulations: The Federal rules restrict any use of the information to criminally investigate or prosecute any alcohol or drug abuse patient.[facility] HospitalIn the event this information is protected by the Federal Confidentiality of Alcohol and Drug Abuse Patient Records regulations: The Federal rules restrict any use of the information to criminally investigate or prosecute any alcohol or drug abuse patient.[facility] HospitalIn the event this information is protected by the Federal Confidentiality of Alcohol and Drug Abuse Patient Records regulations: The Federal rules restrict any use of the information to criminally investigate or prosecute any alcohol or drug abuse patient.[facility] HospitalIn the event this information is protected by the Federal Confidentiality of Alcohol and Drug Abuse Patient Records regulations: The Federal rules restrict any use of the information to criminally investigate or prosecute any alcohol or drug abuse patient.[facility] HospitalIn the event this information is protected by the Federal Confidentiality of Alcohol and Drug Abuse Patient Records regulations: The Federal rules restrict any use of the information to criminally investigate or prosecute any alcohol or drug abuse patient.[facility] HospitalIn the event this information is protected by the Federal Confidentiality of Alcohol and Drug Abuse Patient Records regulations: The Federal rules restrict any use of the information to criminally investigate or prosecute any alcohol or drug abuse patient.[facility] HospitalIn the event this information is protected by the Federal Confidentiality of Alcohol and Drug Abuse Patient Records regulations: The Federal rules restrict any use of the information to criminally investigate or prosecute any alcohol or drug abuse patient.[facility] HospitalIn the event this information is protected by the Federal Confidentiality of Alcohol and Drug Abuse Patient Records regulations: The Federal rules restrict any use of the information to criminally investigate or prosecute any alcohol or drug abuse patient.[facility] HospitalIn the event this information is protected by the Federal Confidentiality of Alcohol and Drug Abuse Patient Records regulations: The Federal rules restrict any use of the information to criminally investigate or prosecute any alcohol or drug abuse patient.[facility] HospitalIn the event this information is protected by the Federal Confidentiality of Alcohol and Drug Abuse Patient Records regulations: The Federal rules restrict any use of the information to criminally investigate or prosecute any alcohol or drug abuse patient.[facility] HospitalIn the event this information is protected by the Federal Confidentiality of Alcohol and Drug Abuse Patient Records regulations: The Federal rules restrict any use of the information to criminally investigate or prosecute any alcohol or drug abuse patient.[facility] HospitalIn the event this information is protected by the Federal Confidentiality of Alcohol and Drug Abuse Patient Records regulations: The Federal rules restrict any use of the information to criminally investigate or prosecute any alcohol or drug abuse patient.[facility] HospitalIn the event this information is protected by the Federal Confidentiality of Alcohol and Drug Abuse Patient Records regulations: The Federal rules restrict any use of the information to criminally investigate or prosecute any alcohol or drug abuse patient.[facility] HospitalIn the event this information is protected by the Federal Confidentiality of Alcohol and Drug Abuse Patient Records regulations: The Federal rules restrict any use of the information to criminally investigate or prosecute any alcohol or drug abuse patient.[facility] HospitalIn the event this information is protected by the Federal Confidentiality of Alcohol and Drug Abuse Patient Records regulations: The Federal rules restrict any use of the information to criminally investigate or prosecute any alcohol or drug abuse patient.[facility] HospitalIn the event this information is protected by the Federal Confidentiality of Alcohol and Drug Abuse Patient Records regulations: The Federal rules restrict any use of the information to criminally investigate or prosecute any alcohol or drug abuse patient.[facility] HospitalIn the event this information is protected by the Federal Confidentiality of Alcohol and Drug Abuse Patient Records regulations: The Federal rules restrict any use of the information to criminally investigate or prosecute any alcohol or drug abuse patient.[facility] HospitalIn the event this information is protected by the Federal Confidentiality of Alcohol and Drug Abuse Patient Records regulations: The Federal rules restrict any use of the information to criminally investigate or prosecute any alcohol or drug abuse patient.[facility] HospitalIn the event this information is protected by the Federal Confidentiality of Alcohol and Drug Abuse Patient Records regulations: The Federal rules restrict any use of the information to criminally investigate or prosecute any alcohol or drug abuse patient.[facility] HospitalIn the event this information is protected by the Federal Confidentiality of Alcohol and Drug Abuse Patient Records regulations: The Federal rules restrict any use of the information to criminally investigate or prosecute any alcohol or drug abuse patient.[facility] HospitalIn the event this information is protected by the Federal Confidentiality of Alcohol and Drug Abuse Patient Records regulations: The Federal rules restrict any use of the information to criminally investigate or prosecute any alcohol or drug abuse patient.[facility] HospitalIn the event this information is protected by the Federal Confidentiality of Alcohol and Drug Abuse Patient Records regulations: The Federal rules restrict any use of the information to criminally investigate or prosecute any alcohol or drug abuse patient.[facility] HospitalIn the event this information is protected by the Federal Confidentiality of Alcohol and Drug Abuse Patient Records regulations: The Federal rules restrict any use of the information to criminally investigate or prosecute any alcohol or drug abuse patient.[facility] HospitalIn the event this information is protected by the Federal Confidentiality of Alcohol and Drug Abuse Patient Records regulations: The Federal rules restrict any use of the information to criminally investigate or prosecute any alcohol or drug abuse patient.[facility] HospitalIn the event this information is protected by the Federal Confidentiality of Alcohol and Drug Abuse Patient Records regulations: The Federal rules restrict any use of the information to criminally investigate or prosecute any alcohol or drug abuse patient.[facility] HospitalIn the event this information is protected by the Federal Confidentiality of Alcohol and Drug Abuse Patient Records regulations: The Federal rules restrict any use of the information to criminally investigate or prosecute any alcohol or drug abuse patient.[facility] HospitalIn the event this information is protected by the Federal Confidentiality of Alcohol and Drug Abuse Patient Records regulations: The Federal rules restrict any use of the information to criminally investigate or prosecute any alcohol or drug abuse patient.[facility] HospitalIn the event this information is protected by the Federal Confidentiality of Alcohol and Drug Abuse Patient Records regulations: The Federal rules restrict any use of the information to criminally investigate or prosecute any alcohol or drug abuse patient.[facility] HospitalIn the event this information is protected by the Federal Confidentiality of Alcohol and Drug Abuse Patient Records regulations: The Federal rules restrict any use of the information to criminally investigate or prosecute any alcohol or drug abuse patient.[facility] HospitalIn the event this information is protected by the Federal Confidentiality of Alcohol and Drug Abuse Patient Records regulations: The Federal rules restrict any use of the information to criminally investigate or prosecute any alcohol or drug abuse patient.[facility] HospitalIn the event this information is protected by the Federal Confidentiality of Alcohol and Drug Abuse Patient Records regulations: The Federal rules restrict any use of the information to criminally investigate or prosecute any alcohol or drug abuse patient.[facility] HospitalIn the event this information is protected by the Federal Confidentiality of Alcohol and Drug Abuse Patient Records regulations: The Federal rules restrict any use of the information to criminally investigate or prosecute any alcohol or drug abuse patient.[facility] HospitalIn the event this information is protected by the Federal Confidentiality of Alcohol and Drug Abuse Patient Records regulations: The Federal rules restrict any use of the information to criminally investigate or prosecute any alcohol or drug abuse patient.[facility] HospitalIn the event this information is protected by the Federal Confidentiality of Alcohol and Drug Abuse Patient Records regulations: The Federal rules restrict any use of the information to criminally investigate or prosecute any alcohol or drug abuse patient.[facility] HospitalIn the event this information is protected by the Federal Confidentiality of Alcohol and Drug Abuse Patient Records regulations: The Federal rules restrict any use of the information to criminally investigate or prosecute any alcohol or drug abuse patient.[facility] HospitalIn the event this information is protected by the Federal Confidentiality of Alcohol and Drug Abuse Patient Records regulations: The Federal rules restrict any use of the information to criminally investigate or prosecute any alcohol or drug abuse patient.[facility] HospitalIn the event this information is protected by the Federal Confidentiality of Alcohol and Drug Abuse Patient Records regulations: The Federal rules restrict any use of the information to criminally investigate or prosecute any alcohol or drug abuse patient.[facility] HospitalIn the event this information is protected by the Federal Confidentiality of Alcohol and Drug Abuse Patient Records regulations: The Federal rules restrict any use of the information to criminally investigate or prosecute any alcohol or drug abuse patient.[facility] HospitalIn the event this information is protected by the Federal Confidentiality of Alcohol and Drug Abuse Patient Records regulations: The Federal rules restrict any use of the information to criminally investigate or prosecute any alcohol or drug abuse patient.[facility] HospitalIn the event this information is protected by the Federal Confidentiality of Alcohol and Drug Abuse Patient Records regulations: The Federal rules restrict any use of the information to criminally investigate or prosecute any alcohol or drug abuse patient.[facility] HospitalIn the event this information is protected by the Federal Confidentiality of Alcohol and Drug Abuse Patient Records regulations: The Federal rules restrict any use of the information to criminally investigate or prosecute any alcohol or drug abuse patient.[facility] HospitalIn the event this information is protected by the Federal Confidentiality of Alcohol and Drug Abuse Patient Records regulations: The Federal rules restrict any use of the information to criminally investigate or prosecute any alcohol or drug abuse patient.[facility] HospitalIn the event this information is protected by the Federal Confidentiality of Alcohol and Drug Abuse Patient Records regulations: The Federal rules restrict any use of the information to criminally investigate or prosecute any alcohol or drug abuse patient.[facility] HospitalIn the event this information is protected by the Federal Confidentiality of Alcohol and Drug Abuse Patient Records regulations: The Federal rules restrict any use of the information to criminally investigate or prosecute any alcohol or drug abuse patient.[facility] HospitalIn the event this information is protected by the Federal Confidentiality of Alcohol and Drug Abuse Patient Records regulations: The Federal rules restrict any use of the information to criminally investigate or prosecute any alcohol or drug abuse patient.[facility] HospitalIn the event this information is protected by the Federal Confidentiality of Alcohol and Drug Abuse Patient Records regulations: The Federal rules restrict any use of the information to criminally investigate or prosecute any alcohol or drug abuse patient.[facility] HospitalIn the event this information is protected by the Federal Confidentiality of Alcohol and Drug Abuse Patient Records regulations: The Federal rules restrict any use of the information to criminally investigate or prosecute any alcohol or drug abuse patient.[facility] HospitalIn the event this information is protected by the Federal Confidentiality of Alcohol and Drug Abuse Patient Records regulations: The Federal rules restrict any use of the information to criminally investigate or prosecute any alcohol or drug abuse patient.[facility] HospitalIn the event this information is protected by the Federal Confidentiality of Alcohol and Drug Abuse Patient Records regulations: The Federal rules restrict any use of the information to criminally investigate or prosecute any alcohol or drug abuse patient.[facility] HospitalIn the event this information is protected by the Federal Confidentiality of Alcohol and Drug Abuse Patient Records regulations: The Federal rules restrict any use of the information to criminally investigate or prosecute any alcohol or drug abuse patient.[facility] HospitalIn the event this information is protected by the Federal Confidentiality of Alcohol and Drug Abuse Patient Records regulations: The Federal rules restrict any use of the information to criminally investigate or prosecute any alcohol or drug abuse patient.[facility] HospitalIn the event this information is protected by the Federal Confidentiality of Alcohol and Drug Abuse Patient Records regulations: The Federal rules restrict any use of the information to criminally investigate or prosecute any alcohol or drug abuse patient.[facility] HospitalIn the event this information is protected by the Federal Confidentiality of Alcohol and Drug Abuse Patient Records regulations: The Federal rules restrict any use of the information to criminally investigate or prosecute any alcohol or drug abuse patient.[facility] HospitalIn the event this information is protected by the Federal Confidentiality of Alcohol and Drug Abuse Patient Records regulations: The Federal rules restrict any use of the information to criminally investigate or prosecute any alcohol or drug abuse patient.[facility] HospitalIn the event this information is protected by the Federal Confidentiality of Alcohol and Drug Abuse Patient Records regulations: The Federal rules restrict any use of the information to criminally investigate or prosecute any alcohol or drug abuse patient.[facility] HospitalIn the event this information is protected by the Federal Confidentiality of Alcohol and Drug Abuse Patient Records regulations: The Federal rules restrict any use of the information to criminally investigate or prosecute any alcohol or drug abuse patient.[facility] HospitalIn the event this information is protected by the Federal Confidentiality of Alcohol and Drug Abuse Patient Records regulations: The Federal rules restrict any use of the information to criminally investigate or prosecute any alcohol or drug abuse patient.[facility] HospitalIn the event this information is protected by the Federal Confidentiality of Alcohol and Drug Abuse Patient Records regulations: The Federal rules restrict any use of the information to criminally investigate or prosecute any alcohol or drug abuse patient.[facility] HospitalIn the event this information is protected by the Federal Confidentiality of Alcohol and Drug Abuse Patient Records regulations: The Federal rules restrict any use of the information to criminally investigate or prosecute any alcohol or drug abuse patient.[facility] HospitalIn the event this information is protected by the Federal Confidentiality of Alcohol and Drug Abuse Patient Records regulations: The Federal rules restrict any use of the information to criminally investigate or prosecute any alcohol or drug abuse patient.[facility] HospitalIn the event this information is protected by the Federal Confidentiality of Alcohol and Drug Abuse Patient Records regulations: The Federal rules restrict any use of the information to criminally investigate or prosecute any alcohol or drug abuse patient.[facility] HospitalIn the event this information is protected by the Federal Confidentiality of Alcohol and Drug Abuse Patient Records regulations: The Federal rules restrict any use of the information to criminally investigate or prosecute any alcohol or drug abuse patient.[facility] HospitalIn the event this information is protected by the Federal Confidentiality of Alcohol and Drug Abuse Patient Records regulations: The Federal rules restrict any use of the information to criminally investigate or prosecute any alcohol or drug abuse patient.[facility] HospitalIn the event this information is protected by the Federal Confidentiality of Alcohol and Drug Abuse Patient Records regulations: The Federal rules restrict any use of the information to criminally investigate or prosecute any alcohol or drug abuse patient.[facility] HospitalIn the event this information is protected by the Federal Confidentiality of Alcohol and Drug Abuse Patient Records regulations: The Federal rules restrict any use of the information to criminally investigate or prosecute any alcohol or drug abuse patient.[facility] HospitalIn the event this information is protected by the Federal Confidentiality of Alcohol and Drug Abuse Patient Records regulations: The Federal rules restrict any use of the information to criminally investigate or prosecute any alcohol or drug abuse patient.[facility] HospitalIn the event this information is protected by the Federal Confidentiality of Alcohol and Drug Abuse Patient Records regulations: The Federal rules restrict any use of the information to criminally investigate or prosecute any alcohol or drug abuse patient.[facility] HospitalIn the event this information is protected by the Federal Confidentiality of Alcohol and Drug Abuse Patient Records regulations: The Federal rules restrict any use of the information to criminally investigate or prosecute any alcohol or drug abuse patient.[facility] HospitalIn the event this information is protected by the Federal Confidentiality of Alcohol and Drug Abuse Patient Records regulations: The Federal rules restrict any use of the information to criminally investigate or prosecute any alcohol or drug abuse patient.[facility] HospitalIn the event this information is protected by the Federal Confidentiality of Alcohol and Drug Abuse Patient Records regulations: The Federal rules restrict any use of the information to criminally investigate or prosecute any alcohol or drug abuse patient.[facility] HospitalIn the event this information is protected by the Federal Confidentiality of Alcohol and Drug Abuse Patient Records regulations: The Federal rules restrict any use of the information to criminally investigate or prosecute any alcohol or drug abuse patient.[facility] HospitalIn the event this information is protected by the Federal Confidentiality of Alcohol and Drug Abuse Patient Records regulations: The Federal rules restrict any use of the information to criminally investigate or prosecute any alcohol or drug abuse patient.[facility] HospitalIn the event this information is protected by the Federal Confidentiality of Alcohol and Drug Abuse Patient Records regulations: The Federal rules restrict any use of the information to criminally investigate or prosecute any alcohol or drug abuse patient.[facility] HospitalIn the event this information is protected by the Federal Confidentiality of Alcohol and Drug Abuse Patient Records regulations: The Federal rules restrict any use of the information to criminally investigate or prosecute any alcohol or drug abuse patient.[facility] HospitalIn the event this information is protected by the Federal Confidentiality of Alcohol and Drug Abuse Patient Records regulations: The Federal rules restrict any use of the information to criminally investigate or prosecute any alcohol or drug abuse patient.[facility] HospitalIn the event this information is protected by the Federal Confidentiality of Alcohol and Drug Abuse Patient Records regulations: The Federal rules restrict any use of the information to criminally investigate or prosecute any alcohol or drug abuse patient.[facility] HospitalIn the event this information is protected by the Federal Confidentiality of Alcohol and Drug Abuse Patient Records regulations: The Federal rules restrict any use of the information to criminally investigate or prosecute any alcohol or drug abuse patient.[facility] HospitalIn the event this information is protected by the Federal Confidentiality of Alcohol and Drug Abuse Patient Records regulations: The Federal rules restrict any use of the information to criminally investigate or prosecute any alcohol or drug abuse patient.[facility] HospitalIn the event this information is protected by the Federal Confidentiality of Alcohol and Drug Abuse Patient Records regulations: The Federal rules restrict any use of the information to criminally investigate or prosecute any alcohol or drug abuse patient.[facility] HospitalIn the event this information is protected by the Federal Confidentiality of Alcohol and Drug Abuse Patient Records regulations: The Federal rules restrict any use of the information to criminally investigate or prosecute any alcohol or drug abuse patient.[facility] HospitalIn the event this information is protected by the Federal Confidentiality of Alcohol and Drug Abuse Patient Records regulations: The Federal rules restrict any use of the information to criminally investigate or prosecute any alcohol or drug abuse patient.[facility] HospitalIn the event this information is protected by the Federal Confidentiality of Alcohol and Drug Abuse Patient Records regulations: The Federal rules restrict any use of the information to criminally investigate or prosecute any alcohol or drug abuse patient.[facility] HospitalIn the event this information is protected by the Federal Confidentiality of Alcohol and Drug Abuse Patient Records regulations: The Federal rules restrict any use of the information to criminally investigate or prosecute any alcohol or drug abuse patient.[facility] HospitalIn the event this information is protected by the Federal Confidentiality of Alcohol and Drug Abuse Patient Records regulations: The Federal rules restrict any use of the information to criminally investigate or prosecute any alcohol or drug abuse patient.[facility] HospitalIn the event this information is protected by the Federal Confidentiality of Alcohol and Drug Abuse Patient Records regulations: The Federal rules restrict any use of the information to criminally investigate or prosecute any alcohol or drug abuse patient.[facility] HospitalIn the event this information is protected by the Federal Confidentiality of Alcohol and Drug Abuse Patient Records regulations: The Federal rules restrict any use of the information to criminally investigate or prosecute any alcohol or drug abuse patient.[facility] HospitalIn the event this information is protected by the Federal Confidentiality of Alcohol and Drug Abuse Patient Records regulations: The Federal rules restrict any use of the information to criminally investigate or prosecute any alcohol or drug abuse patient.[facility] HospitalIn the event this information is protected by the Federal Confidentiality of Alcohol and Drug Abuse Patient Records regulations: The Federal rules restrict any use of the information to criminally investigate or prosecute any alcohol or drug abuse patient.[facility] HospitalIn the event this information is protected by the Federal Confidentiality of Alcohol and Drug Abuse Patient Records regulations: The Federal rules restrict any use of the information to criminally investigate or prosecute any alcohol or drug abuse patient.[facility] HospitalIn the event this information is protected by the Federal Confidentiality of Alcohol and Drug Abuse Patient Records regulations: The Federal rules restrict any use of the information to criminally investigate or prosecute any alcohol or drug abuse patient.[facility] HospitalIn the event this information is protected by the Federal Confidentiality of Alcohol and Drug Abuse Patient Records regulations: The Federal rules restrict any use of the information to criminally investigate or prosecute any alcohol or drug abuse patient.[facility] HospitalIn the event this information is protected by the Federal Confidentiality of Alcohol and Drug Abuse Patient Records regulations: The Federal rules restrict any use of the information to criminally investigate or prosecute any alcohol or drug abuse patient.[facility] HospitalIn the event this information is protected by the Federal Confidentiality of Alcohol and Drug Abuse Patient Records regulations: The Federal rules restrict any use of the information to criminally investigate or prosecute any alcohol or drug abuse patient.[facility] HospitalIn the event this information is protected by the Federal Confidentiality of Alcohol and Drug Abuse Patient Records regulations: The Federal rules restrict any use of the information to criminally investigate or prosecute any alcohol or drug abuse patient.[facility] Reason for Visit (unrecogniz ed section [...] Spirometry Specialty Diagnoses / Procedures Referred By Contac t Referred To [facility] Diagnoses Mild intermittent asthma without complication Procedures LUNG VOLUMES Henok Martinez MD [address] [place] [address] [address] Referral ID Status Reason Start Date Expiration Date V isits Requested Visits Authorized [id number] Closed Auto-Generate d Referral 10/01/2022 10/31/2023 1 1 Specialty Diagnoses / Procedures Referred By Contac t Referred To [facility] Diagnoses Mild intermittent asthma without complication Procedures LUNG DIFFUSION CAPACITY (DLCO) DIFFUSING CAPACITY Henok Martinez MD [address] [place] [address] [address] Referral ID Status Reason Start Date Expiration Date V isits Requested Visits Authorized [id number] Closed Auto-Generate d Referral 10/01/2022 10/31/2023 1 1 Specialty Diagnoses / Procedures Referred By Contac t Referred To Contact [facility] Diagnoses Mild intermittent asthma without complication Procedures SPIROMETRY - BASELINE AND POST DILATOR BRNCDILAT RSPSE SPMTRY PRE&POST-BRNCDILAT ADMN Henok Martinez MD [address] [place] [address] Respiratory [place] [address] [place] [id number] Referral ID Status Reason Start Date Expiration Date V isits Requested Visits Authorized [id number] Closed Auto-Generate d Referral 10/01/2022 10/31/2023 1 1 Reason Comments Results Reason Comments Refill Request Reason Comments Results Discuss results of P FT's Specialty Diagnoses / Procedures Referred By Contac t Referred To Contact [facility] Diagnoses Chronic cough Procedures NITRIC OXIDE, EXHALED NITRIC OXIDE GAS DETERMINATION Nancy Medley MD [address] [phone] Respiratory [place] [address] [place] [id number] Referral ID Status Reason Start Date Expiration Date V isits Requested Visits Authorized [id number] Closed Auto-Generate d Referral 11/16/2022 12/16/2023 1 1 Reason Comments New Patient Cough Specialty Diagnoses / Procedures Referred By Contac t Referred To Contact [facility] Diagnoses Cough, unspecified type Procedures CONSULT TO PULM/CRITICAL CARE OFFICE/OUTPATIENT [facility] MDM 60-74 MINUTES Henok Martinez MD [facility] [place] [address] Referral ID Status Reason Start Date Expiration Date V isits Requested Visits Authorized [id number] Closed PCP Requested Referral 10/26/2022 10/26/2023 1 1 Reason Comments Established Patient follow up cough Reason Comments Blood Pressure Check Reason Comments Blood Pressure Check Reason Comments Follow Up Reason Comments Well Woman Specialty Diagnoses / Procedures Referred By Contac t Referred To Contact Gynecology Diagnoses History of uterine cancer Procedures CONSULT TO GYNECOLOGY OFFICE/OUTPATIENT NEW HIGH MDM 60-74 MINUTES Henok Martinez MD [address] [place] [address] Referral ID Status Reason Start Date Expiration Date V isits Requested Visits Authorized [id number] Closed PCP Requested Referral Auto-Generated Referral 01/25/2023 01/25/2024 1 1 Reason Comments 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 Type 2 N IDDM Specialty Diagnoses / Procedures Referred By Contac t Referred To Contact Ophthalmology Diagnoses Type 2 diabetes mellitus without complication, without long-term current use of insulin (HCC) Procedures CONSULT TO OPHTHALMOLOGY OFFICE/OUTPATIENT NEW HIGH MDM 60-74 MINUTES Henok Martinez MD [address] [place] [address] Referral ID Status Reason Start Date Expiration Date V isits Requested Visits Authorized [id number] Closed PCP Requested Referral 01/25/2023 01/25/2024 1 1 Reason Comments Assessment Patient Education Specialty Diagnoses / Procedures Referred By Contac t Referred To Contact Nutrition Diagnoses Type 2 diabetes mellitus without complication, without long-term current use of insulin (HCC) Procedures CONSULT TO NUTRITION THERAPY MEDICAL NUTRITION ASSMT&IVNTJ INDIV EACH 15 [facility] MEDICAL NUTRITION ASSMT&IVNTJ INDIV EACH 15 [facility] MEDICAL NUTRITION ASSMT&IVNTJ INDIV EACH 15 [facility] MEDICAL NUTRITION ASSMT&IVNTJ INDIV EACH 15 VA Henok Martinez MD [address] [place] [address] Referral ID Status Reason Start Date Expiration Date V isits Requested Visits Authorized [id number] Closed PCP Requested Referral 01/25/2023 01/25/2024 1 [...] IVCON CT PELVIS W/CONTRAST MATERIAL Sadia Ramsey, CREDIT ADMINISTRATION OFFICER.POLICE COMMANDING OFFICER [address] [place] [address] [place] [id number] Referral ID Status Reason Start Date Expiration Date V isits Requested Visits Authorized [id number] Closed Auto-Generate d Referral 02/08/2023 03/09/2024 1 1 Specialty Diagnoses / Procedures Referred By Contac t Referred To Contact CT IMAGING Diagnoses Chronic cough Abnormal chest x-ray Procedures CT CHEST WO IVCON DIAGNOSTIC COMPUTED TOMOGRAPHY THORAX W/O Nancy Hendrix MD [address] [place] [address] Ct Imaging [id number] Referral ID Status Reason Start Date Expiration Date V isits Requested Visits Authorized [id number] Closed Auto-Generate d Referral 11/16/2022 12/16/2023 1 [...] Discharge Specialty Diagnoses / Procedures Referred By Contac t Referred To Contact XR IMAGING Diagnoses Oropharyngeal dysphagia Procedures XR MODIFIED BARIUM SWALLOW W SPEECH THERAPY XR MODIFIED BARIUM SWALLOW W SPEECH THERAPY RADIOLOGIC EXAM SWALLOW FUNCTION CONTRAST STUDY Virginia Reina, CREDIT ADMINISTRATION OFFICER.POLICE COMMANDING OFFICER [address] [place] [address] Xr Imaging [id number] Referral ID Status Reason Start Date Expiration Date V isits Requested Visits Authorized [id number] Closed Auto-Generate d Referral 10/13/2024 11/12/2025 1 1 Reason Comments Results Reason Comments Established Patient Asthma/cough/hemopty sis Reason Onset Date Comments Refill Request 12/15/2024 Reason Comments diabetic supplies Tolu 3 CGM system Reason Comments Appointment Reason Comments Care Coordination Introduction Reason Comments New Patient Specialty Diagnoses / Procedures Referred By Contac t Referred To Contact Diagnoses 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) Procedures CONSULT TO HEMATOLOGY/ONCOLOGY OFFICE/OUTPATIENT NEW HIGH MDM 60 MINUTES Ashutosh Freeman MD [address], [address] [place] [address] Phone: tel: fax: Referral ID Status Reason Start Date Expiration Date V isits Requested Visits Authorized [id number] Closed PCP Requested Referral 01/21/2025 01/21/2026 1 1 Reason Comments avs 01/25 Reason Comments Constipation Reason Onset Date Comments Transition Of Care 01/26/2025 Initial Reason Comments Ambulatory Social Work Food and Transpor tation Reason Comments Chemotherapy Treatment Specialty Diagnoses / Procedures Referred By Kelli bass Referred To Contact Diagnoses 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) Juan Miguel Yusuf MD [address] [place] [address] Phone: tel: Juan Miguel Yusuf MD [address] [place] [address] Phone: tel: Referral ID Status Reason Start Date Expiration Date V isits Requested Visits Authorized [id number] Authorized 01/27/2025 04/27/2025 99 99 Reason Comments [...] 02/11/2025 [facility] 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 Reason Comments Future Appointment Reason Comments Appt Needs Rescheduled Reason Comments Hospital F/U Reason Onset Date Comments Refill Request 03/08/2025 Reason Onset Date Comments Order Editor- Other 03/10/2025 Chart review Reason Comments Patient Question Reason Onset Date Comments Population Health Navigation Outreach 04/01/2025 Opened In Error 04/01/2025 Reason Comments Established Patient Discuss treatment op tions Reason Onset Date Comments Refill Request 04/12/2025 Reason Onset Date Comments Refill Request 04/19/2025 Reason Onset Date Comments Refill Request 04/22/2025 Reason Comments Established Patient Reason Onset Date Comments Population Health Navigation Outreach 05/26/2025 ACO WORKBENCTeodora [place] PCSA Reason Comments Radiology CT Specialty Diagnoses / Procedures Referred By Contac t Referred To Contact CT IMAGING Diagnoses 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) Adenocarcinoma of head of pancreas (HCC) Procedures CT CHEST W IVCON DIAGNOSTIC COMPUTED TOMOGRAPHY THORAX W/CONTRAST Juan Miguel Yusuf MD [address] [place] [address] Phone: tel: CT IMAGING [id number] Referral ID Status Reason Start Date Expiration Date V isits Requested Visits Authorized [id number] Closed Auto-Generate d Referral 05/25/2025 06/24/2026 1 1 Care Teams (unrecognized sec tion and content) Supervisor Instant Potato Processing Relationship Specialty Start Date End Date Henok Martinez MD [facility] [place] [address] PCP - General Family Practice 09/14/21 Supervisor [employer] Potato Processing Relationship Specialty Start Date End Date Henok Martinez MD [address] [place] [address] PCP - General Family Practice 09/14/21 Supervisor Instant Potato Processing Relationship Specialty Start Date End Date Henok Martinez MD [address] [place] [address] PCP - General Family Practice 09/14/21 Supervisor Instant Potato Processing Relationship Specialty Start Date End Date Henok Martinez MD [address] [place] [address] PCP - General Family Practice 09/14/21 Supervisor Instant Potato Processing Relationship Specialty Start Date End Date Henok Martinez MD [address] [place] [address] PCP - General Family Practice 09/14/21 Supervisor Instant Potato Processing Relationship Specialty Start Date End Date Henok Martinez MD [address] [place] [address] PCP - General Family Medicine 09/14/21 Supervisor Instant Potato Processing Relationship Specialty Start Date End Date Henok Martinez MD [address] [place] [address] PCP - General Family Medicine 09/14/21 Supervisor Instant Potato Processing Relationship Specialty Start Date End Date Henok Martinez MD [address] [facility] [address] PCP - General Family Medicine 09/14/21 Supervisor Instant Potato Processing Relationship Specialty Start Date End Date Henok Martinez MD [address] [facility] [address] PCP - General Family Medicine 09/14/21 Supervisor Instant Potato Processing Relationship Specialty Start Date End Date Henok Martinez MD [address] [place] [address] PCP - General Family Medicine 09/14/21 Supervisor Instant Potato Processing Relationship Specialty Start Date End Date Henok Martinez MD [address] [place] [address] PCP - General Family Medicine 09/14/21 Supervisor Instant Potato Processing Relationship Specialty Start Date End Date Henok Martinez MD [address] [place] [address] PCP - General Family Medicine 09/14/21 Supervisor Instant Potato Processing Relationship Specialty Start Date End Date Henok Martinez MD [address] [facility] [address] PCP - General Family Medicine 09/14/21 Supervisor Instant Potato Processing Relationship Specialty Start Date End Date Henok Martinez MD [address] [place] [address] PCP - General Family Medicine 09/14/21 Supervisor Instant Potato Processing Relationship Specialty Start Date End Date Henok Martinez MD [address] [place] [address] PCP - General Family Medicine 09/14/21 Supervisor Instant Potato Processing Relationship Specialty Start Date End Date Henok Martinez MD [address] [facility] [address] PCP - General Family Medicine 09/14/21 Supervisor Instant Potato Processing Relationship Specialty Start Date End Date Henok Martinez MD [address] [place] [place] [address] PCP - General Family Medicine 09/14/21 Supervisor Instant Potato Processing Relationship Specialty Start Date End Date Henok Martinez MD [address] [place] [address] PCP - General Family Medicine 09/14/21 Supervisor Instant Potato Processing Relationship Specialty Start Date End Date Henok Martinez MD [address] [place] [address] PCP - General Family Medicine 09/14/21 Supervisor Instant Potato Processing Relationship Specialty Start Date End Date Henok Martinez MD [address] [facility], [place] [id number] PCP - General Family Medicine 09/14/21 Team [...] Dr. Dick Love DO Emergency Provider Active Supervisor [employer] Processing Relationship Specialty Start Date End Date Henok Martinez MD [address] [place] [address] PCP - General Family Medicine 09/14/21 Supervisor Instant Potato Processing Relationship Specialty Start Date End Date Henok Martinez MD [address] [place] [address] PCP - General Family Medicine 09/14/21 Team Status: Inactive Member Role Status Dates Dr. Henok Martinez MD Primary Care Provider Active Dr. Dick Love , DO Attending Provider, Emergency Pr alina Active Team Status: Inactive Member Role Status Dates Dr. Henok Martinez MD Primary Care Provider Active Dr. Keenan Velazco , DO Attending Provider, Emergency Nicole jutsin Active Team Status: Inactive Member Role Status Dates Dr. Henok Martinez MD Primary Care Provider Active Dr. Gabe Foster , DO Emergency Provider Active Supervisor [employer] Relationship Specialty Start Date End Date Henok Martinez MD [address] [place], [place] [address] PCP - General Family Medicine 09/14/21 Supervisor Instant Potato Processing Relationship Specialty Start Date End Date Henok Martinez MD [address] [place], [place] [address] PCP - General Family Medicine 09/14/21 Supervisor Instant Potato Processing Relationship Specialty Start Date End Date Henok Martinez MD [address] [place], [place] [address] PCP - General Family Medicine 09/14/21 Supervisor Instant Potato Processing Relationship Specialty Start Date End Date Henok Martinez MD [address] [place] [address] PCP - General Family Medicine 09/14/21 Supervisor Instant Potato Processing Relationship Specialty Start Date End Date Henok Martinez MD [address] [place], [place] [id number] PCP - General Family Medicine 09/14/21 Team [...] MD Attending Provider, Emergency Provi morales Active Supervisor [employer] Pot[employer] Processing Relationship Specialty Start Date End Date Henok Martinez MD [address] [facility] [place] [address] PCP - General Family Medicine 09/14/21 Supervisor Instant Potato Processing Relationship Specialty Start Date End Date Henok Martinez MD [address] [place] [address] PCP - General Family Medicine 09/14/21 Supervisor Instant Potato Processing Relationship Specialty Start Date End Date Henok Martinez MD [address] [place] [address] PCP - General Family Medicine 09/14/21 Supervisor Instant Potato Processing Relationship Specialty Start Date End Date Henok Martinez MD [address] [place] [place] [address] PCP - General Family Medicine 09/14/21 Supervisor Instant Potato Processing Relationship Specialty Start Date End Date Henok Martinez MD [address] [place] [address] PCP - General Family Medicine 09/14/21 Supervisor Instant Potato Processing Relationship Specialty Start Date End Date Henok Martinez MD [address] [facility], [place] [address] PCP - General Family Medicine 09/14/21 Supervisor Instant Potato Processing Relationship Specialty Start Date End Date Henok Martinez MD [address] [place], [place] [address] PCP - General Family Medicine 09/14/21 Supervisor Instant Potato Processing Relationship Specialty Start Date End Date Henok Martinez MD [address] [place] [address] PCP - General Family Medicine 09/14/21 Supervisor Instant Potato Processing Relationship Specialty Start Date End Date Henok Martinez MD [address] [place] [address] PCP - General Family Medicine 09/14/21 Supervisor Instant Potato Processing Relationship Specialty Start Date End Date Henok Martinez MD [address] [place] [address] PCP - General Family Medicine 09/14/21 Supervisor Instant Potato Processing Relationship Specialty Start Date End Date Henok Martinez MD [address] [place] [address] PCP - General Family Medicine 09/14/21 Supervisor Instant Potato Processing Relationship Specialty Start Date End Date Henok Martinez MD [address] [place] [address] PCP - General Family Medicine 09/14/21 Supervisor Instant Potato Processing Relationship Specialty Start Date End Date Henok Martinez MD [address] [place] [address] PCP - General Family Medicine 09/14/21 Supervisor Instant Potato Processing Relationship Specialty Start Date End Date Henok Martinez MD [address] [place], [place] [address] PCP - General Family Medicine 09/14/21 Supervisor Instant Potato Processing Relationship Specialty Start Date End Date Henok Martinez MD [address] [place], [place] [address]071 PCP - General Family Medicine 09/14/21 Supervisor Instant Potato Processing Relationship Specialty Start Date End Date Henok Martinez MD [address] [facility] [place] [address] PCP - General Family Medicine 09/14/21 Supervisor Instant Potato Processing Relationship Specialty Start Date End Date Henok Martinez MD [address] [place], [place] [address]24[address] PCP - General Family Medicine 09/14/21 Clarita Boggs APRN.POLICE COMMANDING OFFICER [address] [place] [address] [facility] 10/05/24 Virginia Reina CREDIT ADMINISTRATION OFFICER.POLICE COMMANDING OFFICER [address] [place] [address] [facility] 10/05/24 Supervisor [employer] Potato Processing Relationship Specialty Start Date End Date Henok Martinez MD [address] [place], [place] [address] PCP - General Family Medicine 09/14/21 Clarita Boggs CREDIT ADMINISTRATION OFFICER.POLICE COMMANDING OFFICER [address] [place] [address] [facility] 10/05/24 Virginia Reina CREDIT ADMINISTRATION OFFICER.POLICE COMMANDING OFFICER [address] [place] [address] [facility] 10/05/24 Supervisor Instant Potato Processing Relationship Specialty Start Date End Date Henok Martinez MD [address] [place], [place] [id number] PCP - General Family Medicine 09/14/21 Clarita Boggs, CREDIT ADMINISTRATION OFFICER.POLICE COMMANDING OFFICER [address] [place] [address] [facility] 10/05/24 Virginia Reina CREDIT ADMINISTRATION OFFICER.POLICE COMMANDING OFFICER [address] [facility] [place] [address] [facility] 10/05/24 Supervisor Instant Potato Processing Relationship Specialty Start Date End Date Henok Martinez MD [address] [facility] [place] [address] PCP - General Family Medicine 09/14/21 Clarita Boggs CREDIT ADMINISTRATION OFFICER.POLICE COMMANDING OFFICER [address] [facility] [place] [address] [facility] 10/05/24 iVrginia Reina CREDIT ADMINISTRATION OFFICER.POLICE COMMANDING OFFICER [address] [facility] [place] [address] [facility] Supervisor Instant Potato Processing Relationship Specialty Start Date End Date Henok Martinez MD [address] [facility] [place] [address] PCP - General Family Medicine 09/14/21 Clarita Boggs CREDIT ADMINISTRATION OFFICER.POLICE COMMANDING OFFICER [address] [facility] [place] [address] [facility] 10/05/24 Virginia Reina CREDIT ADMINISTRATION OFFICER.POLICE COMMANDING OFFICER [address] [facility] [place] [address] [facility] 10/05/24 Supervisor Instant Potato Processing Relationship Specialty Start Date End Date Henok Martinez MD [address] [place] [address] PCP - General Family Medicine 09/14/21 Clarita Boggs APRN.POLICE COMMANDING OFFICER [address] [facility] [place] [address] [facility] 10/05/24 Virginia Reina APRN.POLICE COMMANDING OFFICER [address] [facility] [place] [address] [facility] 10/05/24 Supervisor Instant Potato Processing Relationship Specialty Start Date End Date Henok Martinez MD [address] [facility] [place] [address] PCP - General Family Medicine 09/14/21 Clarita Boggs APRN.POLICE COMMANDING OFFICER [address] [facility] [place] [address] [facility] 10/05/24 Virginia Reina APRN.POLICE COMMANDING OFFICER [address] [place] [address] [facility] 10/05/24 Supervisor Instant Potato Processing Relationship Specialty Start Date End Date Henok Martinez MD [address] [facility] [address] PCP - General Family Medicine 09/14/21 Clarita Boggs APRN.POLICE COMMANDING OFFICER [address] [facility] [place] [address] [facility] 10/05/24 Virginia Reina APRN.POLICE COMMANDING OFFICER [address] [facility] [place] [address] [facility] 10/05/24 Supervisor Instant Potato Processing Relationship Specialty Start Date End Date Henok Martinez MD [address] [place] [address] PCP - General Family Medicine 09/14/21 Clarita Boggs APRN.POLICE COMMANDING OFFICER [address] [facility] [place] [address] [facility] 10/05/24 Virginia Reina APRN.POLICE COMMANDING OFFICER [address] [facility] [place] [address] [facility] 10/05/24 Supervisor Instant Potato Processing Relationship Specialty Start Date End Date Henok Martinez MD [address] [facility] [place] [address] PCP - General Family Medicine 09/14/21 Clarita Boggs CREDIT ADMINISTRATION OFFICER.POLICE COMMANDING OFFICER [address] [facility] [place] [address] [facility] 10/05/24 Virginia Reina CREDIT ADMINISTRATION OFFICER.POLICE COMMANDING OFFICER [address] [facility] [place] [address] [facility] 10/05/24 Supervisor Instant Potato Processing Relationship Specialty Start Date End Date Henok Martinez MD [address] [facility] [place], [place] [address] PCP - General Family Medicine 09/14/21 Clarita Boggs CREDIT ADMINISTRATION OFFICER.POLICE COMMANDING OFFICER [address] [place] [address] [facility] 10/05/24 Virginia Reina APRN.POLICE COMMANDING OFFICER [address] [place] [address] [facility] 10/05/24 Iona Hatch, RN [address] [place] [address] Order Editor 01/04/25 Supervisor Instant Potato Processing Relationship Specialty Start Date End Date Henok Martinez MD [address] [place] [address] PCP - General Family Medicine 09/14/21 Clarita Boggs APRN.POLICE COMMANDING OFFICER [address] [place] [address] [facility] 10/05/24 Virginia Reina APRN.POLICE COMMANDING OFFICER [address] [place] [address] [facility] 10/05/24 Supervisor Instant Potato Processing Relationship Specialty Start Date End Date Henok Martinez MD [address] [place] [address] PCP - General Family Medicine 09/14/21 Clarita Boggs APRN.POLICE COMMANDING OFFICER [address] [place] [address] [facility] 10/05/24 Virginia Reina APRN.POLICE COMMANDING OFFICER [address] [place] [address] [facility] 10/05/24 Team Status: Inactive Member Role Status [...] Start: January 10, 2025 Dr. Hung Remy , Emergency Provider Active Start: January 10, 2025 Dr. Oniel Golden , Admit Provider Active Start: January 10, 2025 Dr. Oniel Golden , Attending Provider Active Start: January 10, 2025 Team Status: Inactive Member Role Status Dates Dr. Henok Martinez MD Primary Care Provider Active Start: January 10, 2025 End: January 14, 2025 Dr. Hung Remy , Emergency Provider Active Start: January 10, 2025 End: January 14, 2025 Dr. Oniel Golden , Admit Provider Active Start: January 10, 2025 End: January 14, 2025 Dr. Oniel Golden , Other Provider Active Start: January 10, 2025 End: January 14, 2025 Dr. Jose Wu , Attending Provider Active Start: January 10, 2025 End: January 14, 2025 Dr. Keenan Celeste , Other Provider Active Star t: January 10, 2025 End: January 14, 2025 Team Status: Active Member Role Status Dates Dr. Henok Martinez MD Primary Care Provider Active Start: January 11, 2025 Dr. Hung Remy DO Emergency Provider Active Start: January 11, 2025 Dr. Oniel Golden DO Admit Provider Active Start: January 11, 2025 Dr. Oniel Golden DO Other Provider Active Start: January 11, 2025 Dr. Jose Wu , Attending Provider Active Start: January 11, 2025 Dr. Jose Wu , DO Other Provider Active S tart: January 11, 2025 Dr. Keenan Celeste , Other Provider Active Star t: January 11, 2025 Team Status: Active Member Role Status Dates Dr. Henok Martinez MD Primary Care Provider Active Start: January 11, 2025 Dr. Hung Remy DO Emergency Provider Active Start: January 11, [...] Provider Active Start: January 13, 2025 Dr. Oneil Golden , DO Other Provider Active Start: [...] Provider Active Star t: January 14, 2025 Supervisor Instant Potato Processing Relationship Specialty Start Date End Date Henok Martinez MD [address] [place], [place] [address] PCP - General Family Medicine 09/14/21 Clarita Boggs, CREDIT ADMINISTRATION OFFICER.POLICE COMMANDING OFFICER [address] [place], [place] [address] [facility] 10/05/24 Virginia Reina, CREDIT ADMINISTRATION OFFICER.POLICE COMMANDING OFFICER [address] [place] [address] [facility] 10/05/24 Stuart Dias RN Transitional Table Assembler Metal 01/25/25 Juan Miguel Yusuf MD [address] [facility] [place] [address] Hematology/Oncology 01/25/25 Maria Isabel Silverio RN [address] [place], [place] [address] Specialty Table Assembler Metal Hematology/Oncology 01/25/25 Supervisor Instant Potato Processing Relationship Specialty Start Date End Date Henok Martinez MD [address] [place] [address] PCP - General Family Medicine 09/14/21 Clarita Boggs CREDIT ADMINISTRATION OFFICER.POLICE COMMANDING OFFICER [address] [facility] [place] [address] [facility] 10/05/24 Virginia Reina CREDIT ADMINISTRATION OFFICER.POLICE COMMANDING OFFICER [address] [place] [address] [facility] 10/05/24 Stuart Dias, barber Coordinator 01/25/25 Juan Miguel Yusuf MD [address] [place] [address] Hematology/Oncology 01/25/25 Maria Isabel Silverio RN [address] [place] [address] Specialty Table Assembler Metal Hematology/Oncology 01/25/25 Supervisor [employer] Processing Relationship Specialty Start Date End Date Henok Martinez MD [address] [place] [address] PCP - General Family Medicine 09/14/21 Clarita Boggs CREDIT ADMINISTRATION OFFICER.POLICE COMMANDING OFFICER [address] [facility] [place] [address] [facility] 10/05/24 Virginia Reina CREDIT ADMINISTRATION OFFICER.POLICE COMMANDING OFFICER [address] [place] [address] [facility] 10/05/24 Stuart Dias RN Transitional Table Assembler Metal 01/25/25 Juan Miguel Yusuf MD [address] [place] [address] Hematology/Oncology 01/25/25 Maria Isabel Silverio, MAGNUS [address] [place] [address] Specialty Table Assembler Metal Hematology/Oncology 01/25/25 Supervisor Instant Potato Processing Relationship Specialty Start Date End Date Henok Martinez MD [address] [place] [address] PCP - General Family Medicine 09/14/21 Clarita Boggs, CREDIT ADMINISTRATION OFFICER.POLICE COMMANDING OFFICER [address] [place] [address] [facility] 10/05/24 Virginia Reina CREDIT ADMINISTRATION OFFICER.POLICE COMMANDING OFFICER [address] [place] [address] [facility] 10/05/24 Stuart Dias RN Transitional Table Assembler Metal 01/25/25 Juan Miguel Yusuf MD [address] [place] [address] Hematology/Oncology 01/25/25 Maria Isabel Silverio, MAGNUS [address] [place] [address] Specialty Table Assembler Metal Hematology/Oncology 01/25/25 Supervisor Instant Potato Processing Relationship Specialty Start Date End Date Henok Martinez MD [address] [place] [address] PCP - General Family Medicine 09/14/21 Clarita Boggs, CREDIT ADMINISTRATION OFFICER.POLICE COMMANDING OFFICER [address] [facility] [place] [address] [facility] 10/05/24 Virginia Reina APRN.POLICE COMMANDING OFFICER [address] [place] [address] [facility] 10/05/24 Stuart Dias, barber Coordinator 01/25/25 Juan Miguel Yusuf MD [address] [place] [address] Hematology/Oncology 01/25/25 Maria Isabel Silverio RN [address] [place] [address] Specialty Table Assembler Metal Hematology/Oncology 01/25/25 Supervisor Instant Potato Processing Relationship Specialty Start Date End Date Henok Martinez MD [address] [facility] [place] [address] PCP - General Family Medicine 09/14/21 Clarita Boggs, SHY.POLICE COMMANDING OFFICER [address] [facility] [place] [address] [facility] Family Medicine 10/05/24 Virginia Reina CREDIT ADMINISTRATION OFFICER.POLICE COMMANDING OFFICER [address] [place] [address] [facility] 10/05/24 Stuart Dias RN Transitional Table Assembler Metal 01/25/25 Juan Miguel Yusuf MD [address] [place] [address] Hematology/Oncology 01/25/25 Maria Isabel Silverio, MAGNUS [address] [place] [address] Specialty Table Assembler Metal Hematology/Oncology 01/25/25 Supervisor Instant Potato Processing Relationship Specialty Start Date End Date eHnok Martinez MD [address] [place] [address] PCP - General Family Medicine 09/14/21 Clarita Boggs APRN.POLICE COMMANDING OFFICER [address] [facility] [place] [address] [facility] 10/05/24 Virginia Reina APRN.POLICE COMMANDING OFFICER [address] [place] [address] [facility] 10/05/24 Stuart Dias RN Transitional Table Assembler Metal 01/25/25 Juan Miguel Yusuf MD [address] [place] [address] Hematology/Oncology 01/25/25 Maria Isabel Silverio, MAGNUS [address] [facility] [place] [address] Specialty Table Assembler Metal Hematology/Oncology 01/25/25 Escobar [place] LSW 01/27/25 Supervisor Instant Potato Processing Relationship Specialty Start Date End Date Henok Martinez MD [address] [place] [address] PCP - General Family Medicine 09/14/21 Clarita Boggs APRN.POLICE COMMANDING OFFICER [address] [facility] [place] [address] [facility] 10/05/24 Virginia Reina APRN.POLICE COMMANDING OFFICER [address] [place] [address] [facility] 10/05/24 Stuart Dias RN Transitional Table Assembler Metal 01/25/25 Juan Miguel Yusuf MD [address] [place] [address] Hematology/Oncology 01/25/25 Maria Isabel Silverio, MAGNUS [address] [place] [address] Specialty Table Assembler Metal Hematology/Oncology 01/25/25 Escobar [place] LSW 01/27/25 Supervisor Instant Potato Processing Relationship Specialty Start Date End Date Henok Martinez MD [address] [place] [address] PCP - General Family Medicine 09/14/21 Clarita Boggs, CREDIT ADMINISTRATION OFFICER.POLICE COMMANDING OFFICER [address] [place] [address] [facility] Family [facility] 10/05/24 Virginia Reina, CREDIT ADMINISTRATION OFFICER.POLICE COMMANDING OFFICER [address] [place] [address] [facility] 10/05/24 Stuart Dias RN Transitional Table Assembler Metal 01/25/25 Juan Miguel Yusuf MD [address] [place] [address] Hematology/Oncology 01/25/25 Maria Isabel Silverio, MAGNUS [address] [place] [address] Specialty Table Assembler Metal Hematology/Oncology 01/25/25 Escobar Mendoza [facility] 01/27/25 Supervisor Instant Potato Processing Relationship Specialty Start Date End Date Henok Martinez MD [address] [place] [address] PCP - General Family Medicine 09/14/21 Clarita Boggs APRN.POLICE COMMANDING OFFICER [address] [place] [address] [facility] 10/05/24 Virginia Reina CREDIT ADMINISTRATION OFFICER.POLICE COMMANDING OFFICER [address] [place] [address] [facility] 10/05/24 Stuart Dias barber Coordinator 01/25/25 Juan Miguel Yusuf MD [address] [place] [address] Hematology/Oncology 01/25/25 Maria Isabel Silverio RN [address] [place] [address] Specialty Table Assembler Metal Hematology/Oncology 01/25/25 Escobar [place], [facility] 01/27/25 Supervisor Instant Potato Processing Relationship Specialty Start Date End Date Henok Martinez MD [address] [facility] [place] [place] [address] PCP - General Family Medicine 09/14/21 Clarita Boggs APRN.POLICE COMMANDING OFFICER [address] [place] [address] [facility] 10/05/24 Virginia Reina CREDIT ADMINISTRATION OFFICER.POLICE COMMANDING OFFICER [address] [facility] [place] [address] [facility] 10/05/24 Stuart Dias RN Transitional Table Assembler Metal 01/25/25 Juan Miguel Yusuf MD [address] [place] [address] Hematology/Oncology 01/25/25 Maria Isabel Silverio, MAGNUS [address] [place] [address] Specialty Table Assembler Metal Hematology/Oncology 01/25/25 Escobar [place], MOBILE UI/UX DESIGNER 01/27/25 Supervisor Instant Potato Processing Relationship Specialty Start Date End Date Henok Martinez MD [address] [place] [address] PCP - General Family Medicine 09/14/21 Clarita Boggs, CREDIT ADMINISTRATION OFFICER.POLICE COMMANDING OFFICER [address] [place] [address] [facility] 10/05/24 Virginia Reina, CREDIT ADMINISTRATION OFFICER.POLICE COMMANDING OFFICER [address] [place] [address] [facility] 10/05/24 Stuart Dias RN Transitional Table Assembler Metal 01/25/25 Juan Miguel Yusuf MD [address] [place] [address] Hematology/Oncology 01/25/25 Maria Isabel Silverio, MAGNUS [address] [place] [address] Specialty Table Assembler Metal Hematology/Oncology 01/25/25 Escobar [place], MOBILE UI/UX DESIGNER 01/27/25 Supervisor Instant Potato Processing Relationship Specialty Start Date End Date Henok Martinez MD [address] [facility] [place] [address] PCP - General Family Medicine 09/14/21 Clarita Boggs APRN.POLICE COMMANDING OFFICER [address] [place] [address] [facility] 10/05/24 Virginia Reina APRN.POLICE COMMANDING OFFICER [address] [facility] [place] [address] [facility] 10/05/24 Stuart Dias RN Transitional Table Assembler Metal 01/25/25 Juan Miguel Yusuf MD [address] [place] [place] [address] Hematology/Oncology 01/25/25 Maria Isabel Silverio, MAGNUS [address] [place] [facility] [place] [address] Specialty Table Assembler Metal Hematology/Oncology 01/25/25 Escobar [place] LSW 01/27/25 Supervisor Instant Potato Processing Relationship Specialty Start Date End Date Henok Martinez MD [address] [facility] [place] [address] PCP - General Family Medicine 09/14/21 Clarita Boggs, SHY.POLICE COMMANDING OFFICER [address] [place] [address] [facility] 10/05/24 Virginia Reina APRN.POLICE COMMANDING OFFICER [address] [facility] [place] [address] [facility] 10/05/24 Stuart Dias RN Transitional Table Assembler Metal 01/25/25 Juan Miguel Yusuf MD [address] [facility] [place] [address] Hematology/Oncology 01/25/25 Maria Isabel Silverio, RN [address] [place] [address] Specialty Table Assembler Metal Hematology/Oncology 01/25/25 Ayaz Nguyễn MD 1 [place], [place] [id number] General Surgery 02/04/25 Supervisor Instant Potato Processing Relationship Specialty Start Date End Date Henok Martinez MD [address] [facility] [place] [address] PCP - General Family Medicine 09/14/21 Clarita Boggs APRN.POLICE COMMANDING OFFICER [address] [facility] [place] [address] [facility] 10/05/24 Virginia Reina CREDIT ADMINISTRATION OFFICER.POLICE COMMANDING OFFICER [address] [facility] [place] [address] [facility] 10/05/24 Stuart Dias RN Transitional Table Assembler Metal 01/25/25 Juan Miguel Yusuf MD [address] [place] [address] Hematology/Oncology 01/25/25 Maria Isabel Silverio, MAGNUS [address] [place] [address] Specialty Table Assembler Metal Hematology/Oncology 01/25/25 Ayaz Nguyễn MD 1 [place], [place] [id number] General Surgery 02/04/25 Addison Holley LISW [address] [place] [place] [address] Operations Research Scientist Hematology/Oncology 02/05/25 Supervisor Instant Potato Processing Relationship Specialty Start Date End Date Henok Martinez MD [address] [facility] [place] [address] PCP - General Family Medicine 09/14/21 Clarita Boggs, CREDIT ADMINISTRATION OFFICER.POLICE COMMANDING OFFICER [address] [place] [address] [facility] 10/05/24 Virginia Reina, CREDIT ADMINISTRATION OFFICER.POLICE COMMANDING OFFICER [address] [facility] [place] [address] [facility] 10/05/24 Stuart Dias RN Transitional Table Assembler Metal 01/25/25 Juan Miguel Yusuf MD [address] [place] [address] Hematology/Oncology 01/25/25 Maria Isabel Silverio RN [address] [place] [address] Specialty Table Assembler Metal Hematology/Oncology 01/25/25 Ayaz Nguyễn MD 1 [place] [address] General Surgery 02/04/25 Addison Holley LISW [address] [place] [address] Operations Research Scientist Hematology/Oncology 02/05/25 Supervisor Instant Potato Processing Relationship Specialty Start Date End Date Henok Martinez MD [address] [place] [address] PCP - General Family Medicine 09/14/21 Clarita Boggs APRN.POLICE COMMANDING OFFICER [address] [place] [address] [facility] 10/05/24 Virginia Reina CREDIT ADMINISTRATION OFFICER.POLICE COMMANDING OFFICER [address] [facility] [place] [address] [facility] 10/05/24 Stuart Dias RN Transitional Table Assembler Metal 01/25/25 Juan Miguel Yusuf MD [address] [place] [address] Hematology/Oncology 01/25/25 Maria Isabel Silverio RN [address] [place] [address] Specialty Table Assembler Metal Hematology/Oncology 01/25/25 Ayaz Nguyễn MD 1 [place] [address] General Surgery 02/04/25 Addison Holley LISW [address] [place] [address] Operations Research Scientist Hematology/Oncology 02/05/25 Supervisor Instant Potato Processing Relationship Specialty Start Date End Date Henok Martinez MD [address] [facility] [place] [address] PCP - General Family Medicine 09/14/21 Clarita Boggs APRN.POLICE COMMANDING OFFICER [address] [place] [address] [facility] 10/05/24 Virginia Reina APRN.POLICE COMMANDING OFFICER [address] [facility] [place] [address] [facility] 10/05/24 Stuart Dias barber Coordinator 01/25/25 Juan Miguel Yusuf MD [address] [place] [address] Hematology/Oncology 01/25/25 Maria Isabel Silverio, MAGNUS [address] [place] [address] Specialty Table Assembler Metal Hematology/Oncology 01/25/25 Ayaz Nguyễn MD 1 [place] [address] General Surgery 02/04/25 Addison Holley LISW [address] [address] Operations Research Scientist Hematology/Oncology 02/05/25 Supervisor Instant Potato Processing Relationship Specialty Start Date End Date Henok Martinez MD [address] [facility] [place] [address] PCP - General Family Medicine 09/14/21 Clarita Boggs, CREDIT ADMINISTRATION OFFICER.POLICE COMMANDING OFFICER [address] [place] [address] [facility] 10/05/24 Virginia Reina, CREDIT ADMINISTRATION OFFICER.POLICE COMMANDING OFFICER [address] [facility] [place] [address] [facility] 10/05/24 Stuart Dias RN Transitional Table Assembler Metal 01/25/25 Juan Miguel Yusuf MD [address] [place] [address] Hematology/Oncology 01/25/25 Maria Isabel Silverio, MAGNUS [address] [place] [address] Specialty Table Assembler Metal Hematology/Oncology 01/25/25 Ayaz Nguyễn MD 1 [place], [place] [phone] General Surgery 02/04/25 Addison Holley LISW [address] [place] [address] Operations Research Scientist Hematology/Oncology 02/05/25 Supervisor Instant Potato Processing Relationship Specialty Start Date End Date Henok Martinez MD [address] [place] [address] PCP - General Family Medicine 09/14/21 Clarita Boggs APRN.POLICE COMMANDING OFFICER [address] [place] [address] [facility] 10/05/24 Virginia Reina CREDIT ADMINISTRATION OFFICER.POLICE COMMANDING OFFICER [address] [place] [address] [facility] 10/05/24 Stuart Dias RN Transitional Table Assembler Metal 01/25/25 Juan Miguel Yusuf MD [address] [place] [facility] [place] [address] Hematology/Oncology 01/25/25 Maria Isabel Silverio RN [address] [place] [facility] [place] [address] Specialty Table Assembler Metal Hematology/Oncology 01/25/25 Ayaz Nguyễn MD 1 [place], [place] [id number] General Surgery 02/04/25 Addison Holley LISW [address] [place] [address] Operations Research Scientist Hematology/Oncology 02/05/25 Supervisor Instant Potato Processing Relationship Specialty Start Date End Date Henok Martinez MD [address] [facility] [place] [address] PCP - General Family Medicine 09/14/21 Clarita Boggs APRN.POLICE COMMANDING OFFICER [address] [place] [address] [facility] 10/05/24 Virginia Reina APRN.POLICE COMMANDING OFFICER [address] [facility] [place] [address] [facility] 10/05/24 Juan Miguel Yusuf MD [address] [place] [facility] [place] [address] Hematology/Oncology 01/25/25 Maria Isabel Silverio RN [address] [place] [place] [address] Specialty Table Assembler Metal Hematology/Oncology 01/25/25 Ayaz Nguyễn MD 1 [place], [place] [phone] General Surgery 02/04/25 Addison Holley LISW [address] [place] [address] Operations Research Scientist Hematology/Oncology 02/05/25 Paulette Cagle, innovation manager Printed Circuit Board Panels Trimmer 02/15/25 Supervisor Instant Potato Processing Relationship Specialty Start Date End Date Henok Martinez MD [address] [facility] [place] [place] [address] PCP - General Family Medicine 09/14/21 Clarita Boggs APRN.POLICE COMMANDING OFFICER [address] [place] [address] [facility] 10/05/24 Virginia Reina APRN.POLICE COMMANDING OFFICER [address] [place] [address] [facility] 10/05/24 Juan Miguel Yusuf MD [address] [place] [address] Hematology/Oncology 01/25/25 Maria Isabel Silverio RN [address] [place] [address] Specialty Table Assembler Metal Hematology/Oncology 01/25/25 Ayaz Nguyễn MD 1 [place] [address] General Surgery 02/04/25 Addison Holley LISW [address] [facility] [place] [address] Operations Research Scientist Hematology/Oncology 02/05/25 Paulette Cagle RN Primary Care Printed Circuit Board Panels Trimmer 02/15/25 Supervisor Instant Potato Processing Relationship Specialty Start Date End Date Henok Martinez MD [address] [facility] [place] [place] [address] PCP - General Family Medicine 09/14/21 Clarita Boggs APRN.POLICE COMMANDING OFFICER [address] [place] [address] [facility] 10/05/24 Virginia Reina CREDIT ADMINISTRATION OFFICER.POLICE COMMANDING OFFICER [address] [facility] [place] [place] [address] [facility] 10/05/24 Juan Miguel Yusuf MD [address] [place] [address] Hematology/Oncology 01/25/25 Maria Isabel Silverio, RN [address] [place] [address] Specialty Table Assembler Metal Hematology/Oncology 01/25/25 Ayaz Nguyễn MD 1 [place] [address] General Surgery 02/04/25 Addison Holley LISW [address] [place] [address] Operations Research Scientist Hematology/Oncology 02/05/25 Paulette Cagle RN Primary Care Printed Circuit Board Panels Trimmer 02/15/25 Supervisor Instant Potato Processing Relationship Specialty Start Date End Date Henok Martinez MD [address] [facility] [place] [address] PCP - General Family Medicine 09/14/21 Clarita Boggs, CREDIT ADMINISTRATION OFFICER.POLICE COMMANDING OFFICER [address] [place] [address] [facility] 10/05/24 Virginia Reina, CREDIT ADMINISTRATION OFFICER.POLICE COMMANDING OFFICER [address] [facility] [place] [address] [facility] 10/05/24 Juan Miguel Yusuf MD [address] [place] [address] Hematology/Oncology 01/25/25 Maria Isabel Silverio, MAGNUS [address] [place] [address] Specialty Table Assembler Metal Hematology/Oncology 01/25/25 Ayaz Nguyễn MD 1 [place], [place] [phone] General Surgery 02/04/25 Addison Holley LISW [address] [place] [address] Operations Research Scientist Hematology/Oncology 02/05/25 Paulette Cagle RN Primary Care Printed Circuit Board Panels Trimmer 02/15/25 Supervisor Instant Potato Processing Relationship Specialty Start Date End Date Henok Martinez MD [address] [facility], [place] [address] PCP - General Family Medicine 09/14/21 Clarita Boggs, CREDIT ADMINISTRATION OFFICER.POLICE COMMANDING OFFICER [address] [place] [address] [facility] 10/05/24 Virginia Reina, CREDIT ADMINISTRATION OFFICER.POLICE COMMANDING OFFICER [address] [facility] [address] [facility] 10/05/24 Juan Miguel Yusuf MD [address] [facility] [address] [phone] Hematology/Oncology 01/25/25 Maria Isabel Silverio RN [address] [place] [facility] [place] [address] Specialty Table Assembler Metal Hematology/Oncology 01/25/25 Ayaz Nguyễn MD 1 [place], [place] [phone] General Surgery 02/04/25 Addison Holley LISW [address] [place] [address] Operations Research Scientist Hematology/Oncology 02/05/25 Paulette Cagle, innovation manager Printed Circuit Board Panels Trimmer 02/15/25 Supervisor Instant Potato Processing Relationship Specialty Start Date End Date Henok Martinez MD [address] [facility], [place] [address] PCP - General Family Medicine 09/14/21 Clarita Boggs, SHY.POLICE COMMANDING OFFICER [address] [facility] [place] [address] [facility] 10/05/24 Virginia Reina APRN.POLICE COMMANDING OFFICER [address] [facility], [place] [address] Pole Peeler [facility] 10/05/24 Juan Miguel Yusuf MD [address] [place] [facility] [place] [address] Hematology/Oncology 01/25/25 Maria Isabel Silverio RN [address] [place] [facility] [place] [address] Specialty Table Assembler Metal Hematology/Oncology 01/25/25 Ayaz Nguyễn MD 1 [place] [phone] General Surgery 02/04/25 Addison Holley LISW [address] [place] [address] Operations Research Scientist Hematology/Oncology 02/05/25 Paulette Cagle, innovation manager Printed Circuit Board Panels Trimmer 02/15/25 Supervisor Instant Potato Processing Relationship Specialty Start Date End Date Henok Martinez MD [address] [facility] [place] [address] PCP - General Family Medicine 09/14/21 Clarita Boggs, SHY.POLICE COMMANDING OFFICER [address] [place] [address] [facility] 10/05/24 Virginia Reina CREDIT ADMINISTRATION OFFICER.POLICE COMMANDING OFFICER [address] [place] [address] [facility] 10/05/24 Juan Miguel Yusuf MD [address] [place] [address] Hematology/Oncology 01/25/25 Maria Isabel Silverio RN [address] [facility] [place] [address] Specialty Table Assembler Metal Hematology/Oncology 01/25/25 Ayaz Nguyễn MD 1 [place], [place] [phone] General Surgery 02/04/25 Addison Holley LISW [address] [facility] [place] [address] Operations Research Scientist Hematology/Oncology 02/05/25 Paulette Cagle, innovation manager Printed Circuit Board Panels Trimmer 02/15/25 Supervisor Instant Potato Processing Relationship Specialty Start Date End Date Henok Martinez MD [address] [facility] [place] [address] PCP - General Family Medicine 09/14/21 Clarita Boggs, CREDIT ADMINISTRATION OFFICER.POLICE COMMANDING OFFICER [address] [facility] [place] [address] [facility] 10/05/24 Virginia Reina CREDIT ADMINISTRATION OFFICER.POLICE COMMANDING OFFICER [address] [place] [address] [facility] 10/05/24 Juan Miguel Yusuf MD [address] [place] [address] Hematology/Oncology 01/25/25 Maria Isabel Silverio, RN [address] [place] [address] Specialty Table Assembler Metal Hematology/Oncology 01/25/25 Ayaz Nguyễn MD 1 [place] [address] General Surgery 02/04/25 Addison Holley LISW [address] [place] [address] Operations Research Scientist Hematology/Oncology 02/05/25 Paulette Cagle RN Primary Care Printed Circuit Board Panels Trimmer 02/15/25 Supervisor Instant Potato Processing Relationship Specialty Start Date End Date Henok Martinez MD [address] [place] [address] PCP - General Family Medicine 09/14/21 Clarita Boggs, CREDIT ADMINISTRATION OFFICER.POLICE COMMANDING OFFICER [address] [place] [address] [facility] 10/05/24 Virginia Reina, CREDIT ADMINISTRATION OFFICER.POLICE COMMANDING OFFICER [address] [place] [address] [facility] 10/05/24 Juan Miguel Yusuf MD [address] [place] [address] Hematology/Oncology 01/25/25 Maria Isabel Silverio, MAGNUS [address] [place] [address] Specialty Table Assembler Metal Hematology/Oncology 01/25/25 Ayaz Nguyễn MD 1 [place], [place] [phone] General Surgery 02/04/25 Addison Holley LISW [address] [place] [address] Operations Research Scientist Hematology/Oncology 02/05/25 Paulette Cagle innovation manager Printed Circuit Board Panels Trimmer 02/15/25 Supervisor Instant Potato Processing Relationship Specialty Start Date End Date Henok Martinez MD [address] [facility], [place] [address] PCP - General Family Medicine 09/14/21 Clarita Boggs, CREDIT ADMINISTRATION OFFICER.POLICE COMMANDING OFFICER [address] [facility] [place] [address] [facility] 10/05/24 Virginia Reina, CREDIT ADMINISTRATION OFFICER.POLICE COMMANDING OFFICER [address] [facility] [address] [facility] 10/05/24 Juan Miguel Yusuf MD [address] [place] [facility] [place] [address] Hematology/Oncology 01/25/25 Maria Isabel Silverio RN [address] [place] [facility] [place] [address] Specialty Table Assembler Metal Hematology/Oncology 01/25/25 Ayaz Nguyễn MD 1 [place], [place] [id number] General Surgery 02/04/25 Addison Holley LISW [address] [facility] [address] Operations Research Scientist Hematology/Oncology 02/05/25 Supervisor Instant Potato Processing Relationship Specialty Start Date End Date Henok Martinez MD [address] [facility] [place] [address] PCP - General Family Medicine 09/14/21 Clarita Boggs APRN.POLICE COMMANDING OFFICER [address] [facility] [place] [address] Pole Peeler Family Medicine 10/05/24 Virginia Reina APRN.POLICE COMMANDING OFFICER [address] [facility] [place] [address] Pole Peeler Family Medicine 10/05/24 Juan Miguel Yusuf MD [address] [place] [facility] [place] [address] Hematology/Oncology 01/25/25 Maria Isabel Silverio, MAGNUS [address] [place] [facility] [place] [address] Specialty Table Assembler Metal Hematology/Oncology 01/25/25 Ayaz Nguyễn MD 1 [place], [place] [id number] General Surgery 02/04/25 Addison Holley LISW [address] [place] [address] Operations Research Scientist Hematology/Oncology 02/05/25 Supervisor Instant Potato Processing Relationship Specialty Start Date End Date Henok Martinez MD [address] [facility] [place] [address] PCP - General Family Medicine 09/14/21 Clarita Boggs APRN.POLICE COMMANDING OFFICER [address] [facility] [place] [address] Pole Peeler Family Medicine 10/05/24 Virginia Reina APRN.POLICE COMMANDING OFFICER [address] [place] [address] Pole Peeler Family Medicine 10/05/24 Juan Miguel Yusuf MD [address] [place] [address] Hematology/Oncology 01/25/25 Maria Isabel Silverio RN [address] [place] [address] Specialty Table Assembler Metal Hematology/Oncology 01/25/25 Ayaz Nguyễn MD 1 [place] [address] General Surgery 02/04/25 Addison Holley LISW [address] [place] [address] Operations Research Scientist Hematology/Oncology 02/05/25 Supervisor Instant Potato Processing Relationship Specialty Start Date End Date Henok Martinez MD [address] [facility] [place] [address] PCP - General Family Medicine 09/14/21 Clarita Boggs, CREDIT ADMINISTRATION OFFICER.POLICE COMMANDING OFFICER [address] [facility] [place] [address] Pole Peeler Family Medicine 10/05/24 Virginia Reina, CREDIT ADMINISTRATION OFFICER.POLICE COMMANDING OFFICER [address] [place] [address] Pole Peeler Family Medicine 10/05/24 Juan Miguel Yusuf MD [address] [place] [address] Hematology/Oncology 01/25/25 Maria Isabel Silverio RN [address] [place], [place] [address] [phone] Specialty Table Assembler Metal Hematology/Oncology 01/25/25 Ayaz Nguyễn MD 1 [place], [place] [id number] General Surgery 02/04/25 Addison Holley LISW [address] [place] [address] Operations Research Scientist Hematology/Oncology 02/05/25 Supervisor Instant Potato Processing Relationship Specialty Start Date End Date Henok Martinez MD [address] [place], [place] [address] PCP - General Family Medicine 09/14/21 Clarita Boggs APRN.POLICE COMMANDING OFFICER [address] [place] [address] Pole Peeler Family Medicine 10/05/24 Virginia Reina CREDIT ADMINISTRATION OFFICER.POLICE COMMANDING OFFICER [address] [place] [address] Pole Peeler Family Medicine 10/05/24 Juan Miguel Yusuf MD [address] [place] [address] Hematology/Oncology 01/25/25 Maria Isabel Silverio, RN [address] [place] [address] Specialty Table Assembler Metal Hematology/Oncology 01/25/25 Ayaz Nguyễn MD 1 [place], [place] [id number] General Surgery 02/04/25 Addison Holley LISW [address] [place] [address] Operations Research Scientist Hematology/Oncology 02/05/25 Lamar Stoner MD [address] [place] [address] Physician Radiation Oncology 04/08/25 Supervisor Instant Potato Processing Relationship Specialty Start Date End Date Henok Martinez MD [address] [facility], [place] [address] PCP - General Family Medicine 09/14/21 Clarita Boggs APRN.POLICE COMMANDING OFFICER [address] [facility] [place] [address] Pole Peeler Family Medicine 10/05/24 Virginia Reina APRN.POLICE COMMANDING OFFICER [address] [facility] [place] [place] [address] Pole Peeler Family Medicine 10/05/24 Juan Miguel Yusuf MD [address] [facility] [place] [address] Hematology/Oncology 01/25/25 Maria Isabel Silverio, RN [address] [place] [address] Specialty Table Assembler Metal Hematology/Oncology 01/25/25 Ayaz Nguyễn MD 1 [place] [address] General Surgery 02/04/25 Addison Holley LISW [address] [place] [address] Operations Research Scientist Hematology/Oncology 02/05/25 Supervisor Instant Potato Processing Relationship Specialty Start Date End Date Henok Martinez MD [address] [facility], [place] [address] PCP - General Family Medicine 09/14/21 Clarita Boggs APRN.POLICE COMMANDING OFFICER [address] [place] [address] Pole Peeler Family Medicine 10/05/24 Virginia Reina APRN.POLICE COMMANDING OFFICER [address] [place] [address] Pole Peeler Family Medicine 10/05/24 Juan Miguel Yusuf MD [address] [place] [address] Hematology/Oncology 01/25/25 Maria Isabel Silverio, MAGNUS [address] [place] [address] Specialty Table Assembler Metal Hematology/Oncology 01/25/25 Ayaz Nguyễn MD 1 [place] [address] General Surgery 02/04/25 Addison Holley LISW [address] [place] [address] Operations Research Scientist Hematology/Oncology 02/05/25 Lamar Stoner MD [address] [place] [address] Physician Radiation Oncology 04/08/25 Supervisor Instant Potato Processing Relationship Specialty Start Date End Date Henok Martinez MD [address] [place] [address] PCP - General Family Medicine 09/14/21 Clarita Boggs APRN.POLICE COMMANDING OFFICER [address] [place] [address] Pole Peeler Family Medicine 10/05/24 Virginia Reina APRN.POLICE COMMANDING OFFICER [address] [place] [address] Pole Peeler Family Medicine 10/05/24 Juan Miguel Yusuf MD [address] [place] [address] Hematology/Oncology 01/25/25 Maria Isabel Silverio, MAGNUS [address] [place] [address] Specialty Table Assembler Metal Hematology/Oncology 01/25/25 Ayaz Nguyễn MD 1 [place] [address] General Surgery 02/04/25 Addison Holley LISW [address] [place] [address] Operations Research Scientist Hematology/Oncology 02/05/25 Lamar Stoner MD [address] [place] [address] Physician Radiation Oncology 04/08/25 Supervisor Instant Potato Processing Relationship Specialty Start Date End Date Henok Martinez MD [address] [place] [address] PCP - General Family Medicine 09/14/21 Clarita Boggs, SHY.POLICE COMMANDING OFFICER [address] [place] [address] Pole Peeler Family Medicine 10/05/24 Virginia Reina APRN.POLICE COMMANDING OFFICER [address] [place] [address] Pole Peeler Family Medicine 10/05/24 Juan Miguel Yusuf MD [address] [place] [address] Hematology/Oncology 01/25/25 Maria Isabel Silverio RN [address] [place] [address] Specialty Table Assembler Metal Hematology/Oncology 01/25/25 Ayaz Nguyễn MD 1 [place] [address] General Surgery 02/04/25 Addison Holley LISW [address] [place] [address] Operations Research Scientist Hematology/Oncology 02/05/25 Lamar Stoner MD [address] [place] [address] Physician Radiation Oncology 04/08/25 Supervisor Instant Potato Processing Relationship Specialty Start Date End Date Heonk Martinez MD [address] [place] [address] PCP - General Family Medicine 09/14/21 Clarita Boggs, CREDIT ADMINISTRATION OFFICER.POLICE COMMANDING OFFICER [address] [place] [address] Pole Peeler Family Medicine 10/05/24 Virginia Reina, CREDIT ADMINISTRATION OFFICER.POLICE COMMANDING OFFICER [address] [place] [address] Pole Peeler Family Medicine 10/05/24 Juan Miguel Yusuf MD [address] [place] [address] Hematology/Oncology 01/25/25 Mari aIsabel Silverio RN [address] [place] [address] Specialty Table Assembler Metal Hematology/Oncology 01/25/25 Ayaz Nguyễn MD 1 [place], [place] [id number] General Surgery 02/04/25 Addison Holley LISW [address] [place] [address] Operations Research Scientist Hematology/Oncology 02/05/25 Lamar Stoner MD [address] [facility] [place] [address] Physician Radiation Oncology 04/08/25 Supervisor Instant Potato Processing Relationship Specialty Start Date End Date Henok Martinez MD [address] [facility] [place] [address] PCP - General Family Medicine 09/14/21 Clarita Boggs, CREDIT ADMINISTRATION OFFICER.POLICE COMMANDING OFFICER [address] [facility] [place] [address] Pole Peeler Family Medicine 10/05/24 Virginia Reina, CREDIT ADMINISTRATION OFFICER.POLICE COMMANDING OFFICER [address] [facility] [address] Pole Peeler Family Medicine 10/05/24 Juan Miguel Yusuf MD [address] [facility] [place] [address] Hematology/Oncology 01/25/25 Maria Isabel Silverio, MAGNUS [address] [facility] [place] [address] Specialty Table Assembler Metal Hematology/Oncology 01/25/25 Ayaz Nguyễn MD 1 [place], [place] [id number] General Surgery 02/04/25 Addison Holley LISW [address] [place] [address] Operations Research Scientist Hematology/Oncology 02/05/25 Lamar Stoner MD [address] [place] [address] Physician Radiation Oncology 04/08/25 Supervisor Instant Potato Processing Relationship Specialty Start Date End Date Henok Martinez MD [address] [place] [address] PCP - General Family Medicine 09/14/21 Clarita Boggs APRN.POLICE COMMANDING OFFICER [address] [place] [address] Pole Peeler Family Medicine 10/05/24 Virginia Reina APRN.POLICE COMMANDING OFFICER [address] [place] [address] Pole Peeler Family Medicine 10/05/24 Juan Miguel Yusuf MD [address] [place] [address] Hematology/Oncology 01/25/25 Maria Isabel Silverio RN [address] [place] [address] Specialty Table Assembler Metal Hematology/Oncology 01/25/25 Ayaz Nguyễn MD 1 [place] [address] General Surgery 02/04/25 Addison Holley LISW [address] [place] [address] Operations Research Scientist Hematology/Oncology 02/05/25 Lamar Stoner MD [address] [place] [address] Physician Radiation Oncology 04/08/25 Supervisor Instant Potato Processing Relationship Specialty Start Date End Date Henok Martinez MD [address] [place] [address] PCP - General Family Medicine 09/14/21 Clarita Boggs, CREDIT ADMINISTRATION OFFICER.POLICE COMMANDING OFFICER [address] [place] [address] Pole Peeler Family Medicine 10/05/24 Virginia Reina CREDIT ADMINISTRATION OFFICER.POLICE COMMANDING OFFICER [address] [place] [address] Pole Peeler Family Medicine 10/05/24 Juan Miguel Yusuf MD [address] [place] [address] Hematology/Oncology 01/25/25 Maria Isabel Silverio, RN [address] [place] [address] Specialty Table Assembler Metal Hematology/Oncology 01/25/25 Ayaz Nguyễn MD 1 [place], [place] [id number] General Surgery 02/04/25 Addison Holley LISW [address] [place] [address] Operations Research Scientist Hematology/Oncology 02/05/25 Lamar Stoner MD [address] [place] [address] Physician Radiation Oncology 04/08/25 Supervisor Instant Potato Processing Relationship Specialty Start Date End Date Henok Martinez MD [address] [facility] [place] [address] PCP - General Family Medicine 09/14/21 Clarita Boggs, SHY.POLICE COMMANDING OFFICER [address] [facility] [place] [address] Pole Peeler Family [facility] 10/05/24 Virginia Reina CREDIT ADMINISTRATION OFFICER.POLICE COMMANDING OFFICER [address] [facility] [place] [address] [facility] Juan Miguel Yusuf MD [address] [place] [address] Hematology/Oncology 01/25/25 Maria Isabel Silverio RN [address] [place] [address] Specialty Table Assembler Metal Hematology/Oncology 01/25/25 Ayaz Nguyễn MD 1 [place], [place] [id number] General Surgery 02/04/25 Addison Holley LISW [address] [place] [address] Operations Research Scientist Hematology/Oncology 02/05/25 Lamar Stoner MD [address] [place] [address] Physician Radiation Oncology 04/08/25 Team Status: Active Member Role/Relationship Status Dates Dr. Hneok Martinez MD Primary Care Provider Active Team Status: Active Member Role/Relationship Status Dates Dr. Henok Martinez MD Primary Care Provider Active Start: May 31, 2025 Dr. Yeyo Valentine DO Emergency Provider Active Start : May 31, 2025 Dr. Oniel Golden DO Admit Provider Active Start: May 31, 2025 Dr. Oniel Golden DO Attending Provider Active Start: May 31, 2025 Goals (unrecognized section and content) Goals may [...] section and content) DATE CREATED AUTHOR 02/17/2025 [facility] DATE CREATED AUTHOR AUTHOR'S ORGANIZ ATION 04/08/2025 [facility] DATE CREATED AUTHOR AUTHOR'S ORGANIZ ATION 04/17/2025 [facility] DATE CREATED AUTHOR AUTHOR'S ORGANIZ ATION 05/27/2025 [facility] FOR RECORDS PERTAINING TO PATIENTS WHO ARE [...] BE BASED ON THE PRIMARY CLINICAL RECORDS. [employer] provides no warranty or guarantee of the accuracy or completeness of information in this document.
[2025-05-31] MEDS: 0.9% Saline Lock 10 ML Syringe IV ×2 (05:20→20:32)
--- NOTE | 2025-05-31 07:03 | NURSING ---
on admission. pt stated she wants everything done and does want to be a full code and not a dncca no intubation. Daughter called in very upset about pt code status. Dr mendez notified and code status changed to full code
[2025-05-31 09:02] LABS: Magnesium 1.8 mg/dL (1.5-2.2)
--- NOTE | 2025-05-31 14:03 | CASEMGMT ---
Social Work- SW met with pt and pt dtr. Pt sleeping and did not arouse to name. Pt dtr reports that pt and family are awaiting consult with Dr Brown before deciding on hospice/palliative referral. Pt dtr reports that pt does not want people in her home, therefore, the anticipated discharge plan will be home with family care. SW provided hospice and palliative education on services and will remain available to follow for discharge planning needs following consult. Hospitalist updated. VICKY Joseph
--- NOTE | 2025-05-31 19:04 | CON.PCM.GI_ITS ---
HPI Consult Data Date of Consult: 05/31/25 HPI Narrative HPI Narrative: TELMA OLMOS, is a 84 F who presents with fatigue, weakness, darkening urine and jaundice. She was on previous admission where she presented with painless jaundice and a bilirubin of 9. - Previous CT of the abdomen pelvis in January 2025 - evidence of dilated hepatic and pancreatic ducts with an area of hypoattenuation in the head of the pancreas concerning for Pancreatic Carcinoma with additional evidence of mild hepatocellular disease with a markedly distended/hydropic gallbladder with corresponding laboratory evidence of Severe Hyperbilirubinemia; with total bilirubin of 9.78 mg/dL and direct bilirubin of 7.64 mg/dL in addition to Transaminitis; with AST of 308 units/L, ALT of 390 units/L and alkaline phosphatase of 416 units/L plus elevated lipase of 224 units/L suggestive of possible early pancreatitis She was then arranged for transfer to [facility] with patient confirmed to have pancreatic cancer; with subsequent pancreatic duct placed and patient started on chemotherapy - but then stopped her treatment ~2 months ago because of side effects who presents. Yesterday in the ER she was noted to have severe Hyperbilirubinemia of 4.82 mg/dL along with evidence of Transaminitis; with AST 135 units/L, ALT 195 units/L and alkaline phosphatase 166 units/L suspected to be due to Acute Cholangitis in the setting of known Pancreatic Cancer. - Current CT scan of the abdomen and pelvis 05/31/2025 - revealing unremarkable liver and gallbladder with stable ~5 mm liver hypodensity with biliary stent in good position and CBD is dilated up to ~2 cm in cross-section with pancreatic atrophy and history of pancreatic head mass which is not definitely seen, possibly indicating response to treatment but stable periportal adenopathy that is nonspecific. [facility] Medical History Type 2 diabetes mellitus with hyperglycemia Transaminitis Hyperbilirubinemia Pancreatic mass History of uterine cancer Overweight (BMI 25.0-29.9) Jaundice Elevated lipase Mass of head of pancreas Atrial fibrillation Neck pain, bilateral History of TIA (transient ischemic attack) Stroke/cerebrovascular accident Essential hypertension Complaint of melena Transient ischemic attack (03/2021) History of Lundberg's palsy GERD (gastroesophageal reflux disease) History of cancer History of blood transfusion Right atrial mass Former smoker Asthma Diabetes mellitus, type 2 Home Medications ?Medication ?Instructions ?Recorded ?Last Taken ?Type pantoprazole 40 mg tablet,delayed 40 mg PO DAILY gerd #90 tabs 08/28/21 Unknown Rx release atorvastatin 20 mg tablet 20 mg PO QHS hld 03/07/23 Un known History losartan 100 mg tablet 100 mg PO DAILY bp 03/07/23 Unknown History metoprolol tartrate 50 mg tablet 50 mg PO BID heart Unknown History apixaban 5 mg tablet 5 mg PO BID blood thinner #1 80 tabs 04/28/24 Unknown Rx amlodipine 10 mg tablet 10 mg PO DAILY bp #90 tabs 0 11/10/24 Unknown Rx Allergy/AdvReac Type Severity Reaction Status Date / Time Penicillins Allergy Severe Anaphylaxis Verified 05/30/25 21:31 tetracycline Allergy Severe anaphylaxis Verified 05/30/25 21:31 tramadol (From [employer]) AdvReac Severe syncope Verified 05/30/25 21:31 Family History Mother Pancreatic cancer CAD (coronary artery disease) Father Cancer Lung cancer Brother Parkinson disease Surgical History History of surgery H/O: hysterectomy H/O hemorrhoidectomy History of bladder surgery H/O rhinoplasty History of cataract surgery History of appendectomy Social History Smoking Status: Former smoker how long ago did patient quit smokin+ years alcohol intake: never substance use type: does not use ROS Constitutional Constitutional: Denies fatigue, fever(s), poor appetite, weight gain or weight loss Gastrointestinal Gastrointestinal: Denies belching, bloating, change in bowel habits, change in stool character, chewing difficulty, coffee ground emesis, constipation, cramping, diarrhea, dyspepsia, dysphagia, early satiety, excessive flatus, fecal incontinence, heartburn, hematemesis, hematochezia, hemorrhoids, loose stools, melena, nausea, odynophagia, rectal bleeding, tenesmus, vomiting or weight changes Physical Exam Const alert, oriented x3, no apparent distress and healthy appearing General Appearance: cooperative GI normal to inspection, nondistended, normoactive bowel sounds, soft to palpation, non-tender and non-distended Percussion: normal to percussion Rectal Exam: deferred Lab / Micro Data 05/30/25 21:55 05/30/25 21:55 Labs: Laboratory Results - last 24 hr 05/30/25 21:55: WBC 13.9 H, RBC 4.13 L, Hgb 11.1 L, Hct 33.8 L, MCV 81.8, MCH 26.9 L, MCHC 32.8, RDW Std Deviation 44.9 H, RDW Coeff of [place] 14.9 H, Plt Count 185, MPV 12.7 H, Immature Gran % (Auto) 0.500, Neut % (Auto) 84.7 H, Lymph % (Auto) 3.3 L, [place] % (Auto) 11.4 H, Eos % (Auto) 0.0, Baso % (Auto) 0.1, A bsolute Neuts (auto) 11.7 H, Absolute Lymphs (auto) 0.46 L, Nucleated RBC % 0, Differential Comment SCANNED, Sodium 131 L, Potassium 3.1 L, Chloride 97 L, C arbon Dioxide 20.0 L, Anion Gap 14, BUN 9, Creatinine 0.74, Estim Creat Clear Calc 45.50 L, Est GFR (MDRD) Non-Af 80, BUN/Creatinine Ratio 12.0, Glucose 257 H , Lactic Acid 1.6, Calcium 9.1, Total Bilirubin 4.82 H, AST 135 H, ALT 195 H, A lkaline Phosphatase 466 H, Total Protein 7.3, Albumin 3.9, Globulin 3.5, Albumin/Globulin Ratio 1.1, Lipase 49 05/30/25 22:38: Urine Color Yellow, Urine Clarity Clear, Urine pH 7.0, Ur Specific [place] 1.005, Urine Protein 30 H, Urine Glucose (UA) 1000 H, Urine Ketones Negative, Urine Occult Blood 25 H, Urine Nitrite Negative, Urine Bilirubin Negative, Urine Urobilinogen Normal, Ur Leukocyte Esterase Negative, Urine RBC 0 SEEN, Urine WBC 0 SEEN, Ur Squamous Epith Cells 5-10 SEEN, Urine Bacteria 2+, Urine Mucus 0 SEEN 05/31/25 08:03: Phosphorus 1.9 L, Magnesium 1.8 Micro: Microbiology 05/30/25 22:15 Mucosa - Nose SARS-CoV-2, Influenza & RSV (PCR) - Final Imaging Radiology Impression Chest/Abdomen/Pelvis CT 05/30/25 23:36 IMPRESSION: Left axillary adenopathy, nonspecific. Possibly inflammatory in etiology. No acute chest injury is noted. Treated pancreatic head tumor is not well seen and may be decreased in size indicating response to treatment. Biliary stent in good position. No abdominopelvic injury noted. Reading Location: [place] [address] Assessment & Plan Assessment/Plan (1) Transaminitis: (2) Leukocytosis: QUALIFIERS: Leukocytosis type: unspecified Qualified Code(s): D 72.829 - Elevated white blood cell count, unspecified (3) Pancreatic cancer: QUALIFIERS: Pancreatic malignancy location: unspecified Qualified Code(s): C25.9 - Malignant 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, unspecified (4) Cholangiolitis: PLAN: 84-year-old female with a history of cholangitis and pancreatic cancer. She reports experiencing increased fatigue, citing difficulty with her activities of daily living and a diminished appetite, leading to some weight loss. She complains of persistent itching, which is more noticeable at night and affecting her sleep. The patient expresses significant nausea and occasional vomiting, especially after attempting to eat larger meals. She reports experiencing abdominal pain that seems to radiate to her back and is worsened after eating.?She also notes that her stools have become construction project coordinator in color?and she is experiencing diarrhea. She verbalizes a strong desire to focus on comfort and maintaining her quality of life at this time, given her inability to tolerate chemotherapy. She is experiencing significant symptoms of her illness, including fatigue, decreased appetite, weight loss, itching, nausea, vomiting, abdominal pain, and changes in bowel habits. These symptoms are impacting her quality of life. She has a history of chemotherapy intolerance, necessitating a shift toward palliative and supportive care. * Palliative Care:?Recommend to discuss with the patient and family the benefits of early integration of palliative care to address symptom management and improve overall quality of life. * Symptom Management: * Pain management, nausea vomiting management, itching management, fatigue management, appetite weight loss management. * Biliary Obstruction:?Patient will undergo ERCP tomorrow with stent exchange for a fully covered metal stent and possibly pancreatic stent. Charges/Coding Visit Charges Inpatient E&M: 98091 Init Hosp L3
[2025-06-01] VITALS (13 sets, daily range): BP systolic 150–178; BP diastolic 57–101; PULSE 71–107; RESP 14–18; TEMP 36.1–37.2; O2SAT 96–99; BMI 29.0
[2025-06-01] MEDS: metroNIDAZOLE 500 MG/100 ML BAG 100 MG IV ×3 (05:36→23:05)
[2025-06-01 06:13] LABS: Hematocrit 31.0 % (37-47); Hemoglobin 10.0 g/dL (12.0-15.0); Immature Granulocytes Count 0.010 X10^3/uL (0.0-0.0); Mean Corp Hgb Conc 32.3 g/dL (32-36); Mean Corpuscular Volume 85.2 fL (81-99); Mean Platelet Vol. 12.7 fl (6.2-12.0); NRBC Flagged by Analyzer 0 % (0-5); Platelet Count 180 K/mm3 (150-450); RBC Distribution Width CV 15.3 % (11.6-14.6); RBC Distribution Width SD 47.8 fl (35.1-43.9); Red Blood Count 3.64 M/mm3 (4.2-5.4); White Blood Count 6.3 K/mm3 (4.4-11.0)
[2025-06-01 06:39] LABS: AST(SGOT) 49 U/L (<=31); Alanine Aminotransfer ALT/SGPT 95 U/L (<=34); Albumin, Serum 3.3 g/dL (3.4-4.8); Alkaline Phosphatase 339 U/L (35-104); Anion Gap 12 (5-15); BUN 5 mg/dL (4-19); BUN/Creat Ratio 8.3 RATIO (10-20); Calcium,Total 8.8 mg/dL (7.6-11.0); Carbon Dioxide 20.4 mmol/L (21.0-32.0); Chloride 108 mmol/L (98-108); Estimated Creatinine Clearance 44.77 ml/min (50-250); Globulin 2.9 g/dL (2.2-4.2); Glucose 171 mg/dL (70-99); Potassium 3.1 mmol/L (3.3-5.1)
--- NOTE | 2025-06-01 08:38 | PN.HOSP_ITS ---
Reason for Visit Chief Complaint: Fever and Abdominal Pain. Subjective Subjective Patient is an 84-year-old lady with recent diagnosis of pancreatic carcinoma who presented to the emergency department with fever and abdominal pain. An assessment of acute cholangitis made started on broad-spectrum antibiotic therapy admitted to regular nursing floor for further management Objective Data Objective Data Vital Signs: Vital Signs Temp Pulse Resp BP Pulse Ox O2 Del Method 97.0 F L 99 18 157/69 H 99 Room Air 06/01/25 08:17 06/01/25 08:17 06/01/25 08:17 06/01/25 08:17 06/01/25 08:17 06/01/25 08:17 Oxygen Delivery Method Room Air Weight: 67.2 kg Body Mass Index (BMI) 29.0 Intake & Output: Intake and Output for Last 24 Hours 05/30/25 05/31/25 06/01/25 23:59 23:59 23:59 Intake Total 1000 / 1000 2272.92 / 2272.92 100 / 100 Balance 1000 / 1000 2272.92 / 2272.92 100 / 100 Lab / Micro Data 06/01/25 05:12 06/01/25 05:12 Labs: Laboratory Results - last 24 hr 05/31/25 08:03: Phosphorus 1.9 L, Magnesium 1.8 06/01/25 05:12: WBC 6.3, RBC 3.64 L, Hgb 10.0 L, Hct 31.0 L, MCV 85.2, MCH 27.5, MCHC 32.3, RDW Std Deviation 47.8 H, RDW Coeff of Colton 15.3 H, Plt Count 180, MPV 12.7 H, Immature Gran % (Auto) 0.200, Neut % (Auto) 71.6 H, Lymph % (Auto) 10.8 L, [place] % (Auto) 15.3 H, Eos % (Auto) 1.6, Baso % (Auto) 0.5, Absolute Neuts (auto) 4.5, Absolute Lymphs (auto) 0.68 L, Nucleated RBC % 0, Sodium 139, P otassium 3.1 L, Chloride 108, Carbon Dioxide 20.4 L, Anion Gap 12, BUN 5, C reatinine 0.63 L, Estim Creat Clear Calc 44.77 L, Est GFR (MDRD) Non-Af 88, B UN/Creatinine Ratio 8.3 L, Glucose 171 H, Hemoglobin A1c 9.6 H, Calcium 8.8, T otal Bilirubin 4.68 H, AST 49 H, ALT 95 H, Alkaline Phosphatase 339 H, Total Protein 6.2, Albumin 3.3 L, Globulin 2.9, Albumin/Globulin Ratio 1.2 Micro: Microbiology 05/30/25 22:15 Mucosa - Nose SARS-CoV-2, Influenza & RSV (PCR) - Final Physical Exam Narrative GENERAL: cooperative HEENT: Atraumatic; normocephalic EYES; Anicteric, Normal Conjunctiva NECK; supple, normal thyroid, RESPIRATORY: Diminished to auscultation CARDIOVASCULAR: Regular S1 S2, GI: soft, normoactive bowel sounds, : No Renal angle tenderness; EXTREMITIES: No edema, no clubbing, MUSCULOSKELETAL: no muscle wasting NEURO: Awake; no lateralizing signs. SKIN: No Rash PSYCH; Flat affect Assessment & Plan Assessment/Plan (1) Cholangiolitis: (2) Hyperbilirubinemia: (3) Transaminitis: (4) Pancreatic cancer: QUALIFIERS: Pancreatic malignancy location: unspecified Qualified Code(s): C25.9 - Malignant 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, unspecified (5) Hyponatremia: (6) Hypokalemia: (7) Type 2 diabetes mellitus with hyperglycemia: QUALIFIERS: Diabetes mellitus rodent exterminator insulin use: without rodent exterminator use Qualified Code(s): E11.65 - Type 2 diabetes mellitus with hyperglycemia PLAN: Plan Patient is an 84-year-old lady with recent diagnosis of pancreatic carcinoma who presented to the emergency department with fever and abdominal pain. An assessment of acute cholangitis made started on broad-spectrum antibiotic therapy admitted to regular nursing floor for further management 1. Suspected acute cholangitis ? In a patient with underlying pancreatic CA with previous stent placement. Patient was placed on broad-spectrum antibiotic therapy consult placed to GI patient seen by Dr. Brown plan is for patient to undergo ERCP with stent exchange 2. Pancreatic CA ? Patient underwent pancreatic duct placement at [facility], started on chemo but stopped 2 weeks because of side effects. GI currently recommending palliative care consultation 3. 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 Sodium level on admission was 131, 139 as of 06/01/2025. Will continue with subsequent monitoring of sodium levels 4. Hypokalemia ? Patient potassium levels on admission was 3.1 still remains 3.1 additional potassium replacement given 5. Diabetes mellitus type II Placed on long acting insulin, Accu-Cheks a.c. and at bedtime and covered with sliding scale insulin 6. Chronic A-fib ? Rate controlled on metoprolol and systemic anticoagulation with apixaban. Apixaban held on admission 7. GERD ? On PPI 8. Anemia ? Secondary to chronic disorder/anemia of malignancy monitoring H&H and transfuse if patient becomes symptomatic or hemoglobin falls below 7 9. Dyslipidemia ?Patient is on statin therapy, continued at home dose 10. History of previous TIA/CVA ? Resultant mild cognitive impairment 11. Mild intermittent asthma ? Currently not in exacerbation aerosol treatment as needed 12. DVT prophylaxis ? Subcu Lovenox for Time spent in the patient's overall evaluation,decision-making process, review of diagnostic data, adjustment of management, discussion with other providers, nursing nursing and ancillary staff involved in patient's care documentation, 52 Minutes Charges/Coding Visit Charges Inpatient E&M: 28619 [facility] Hosp L3
[2025-06-01] MEDS: Potassium Chloride 10mEq/100mL 10 MEQ/100 ML IV.SOLN. 100 MEQ IV BOLUS ×4 (09:22→12:58)
[2025-06-01] MEDS: 0.9% Normal Saline (250mL Bag) 250 ML 15 ML IV (09:23)
[2025-06-01] MEDS: 0.9% Saline Lock 10 ML Syringe IV ×2 (09:26→11:52)
[2025-06-01] MEDS: Lactated Ringers 1,000 ML 15 ML IV (15:00)
--- NOTE | 2025-06-01 15:13 | PCM.PRE.AN2 ---
ASA Classification* ASA Classification ASA Classification: 3 Assessment & Plan Anesthesia* Anesthesia Assessment Anesthesia Assessment: Discussed sedation and/or anesthesia options, risks, benefits, and alternatives with patient/parents/legal guardian/POA. Questions invited. The patient/parents/legal guardian/POA seems to understand and agrees to proceed with anesthesia plan. Reviewed the physical assessment, medical history, allergy history and patient home medications list prior to surgery/procedure/anesthetic and documented any changes. Performed airway and anesthesia risk assessments. Anesthesia Type Anesthesia Type: General and MAC History Source History Obtained from:: Patient and Chart Anesthesia Focused Assessment* Temperature: 97.9 F Pulse Rate: 99 Blood Pressure: 167/57 Respiratory Rate: 18 Pulse Ox: 99 Oxygen Delivery Method: Room Air Airway Assessment Mouth opens: >3 cm Mallampati Score: II Teeth Condition: Dentures and Missing Neck Range of motion (ROM): Limited ROM Labs Anesthesia Preop lab: CBC WBC 6.3 K/mm3 (4.4-11.0) 06/01/25 05:12 06/01/25 RBC 3.64 M/mm3 (4.2-5.4) L 06/01/25 05:12 06/01/25 Hgb 10.0 g/dL (12.0-15.0) L 06/01/25 05:12 06/01/25 Hct 31.0 % (37-47) L 06/01/25 05:12 06/01/25 Plt Count 180 K/mm3 (150-450) 06/01/25 05:12 06/01/25 CHEMISTRY Potassium 3.1 mmol/L (3.3-5.1) L 06/01/25 05:12 06/01/25 Sodium 139 mmol/L (133-145) 06/01/25 05:12 06/01/25 Magnesium 1.8 mg/dL (1.5-2.2) 05/31/25 08:03 05/31/25 Phosphorus 1.9 mg/dL (2.7-4.5) L 05/31/25 08:03 05/31/25 BUN 5 mg/dL (4-19) 06/01/25 05:12 06/01/25 Creatinine 0.63 mg/dL (0.70-1.20) L 06/01/25 05:12 06/01/25 Glucose 171 mg/dL (70-99) H 06/01/25 05:12 06/01/25 POC Glucose 417 mg/dL (74-106) H 01/14/25 21:16 01/14/25 TSH 2.180 uIU/mL (0.300-4.200) 01/10/25 05:19 01/10/25 COAG PT 12.8 SECONDS (11.7-14.9) 01/09/25 19:21 01/09/25 Pre-Assessment Diagnosis/Proposed Procedure Planned Operative Procedure(s): ERCP Anesthesia History Anesthesia History - service order dispatcher: Anesthesia History - service order dispatcher Hx Hospitalization Any Problems With Anesthesia No 06/01/25 05:30 Cholinesterase deficiency No 06/01/25 05:30 You/Your Family Experience No 06/01/25 05:30 fever (hyperthermia) with Relationship Recent Exposure to Contagious No 06/01/25 05:30 Disease Does patient have nerve No 06/01/25 05:30 stimulator Patient instructed to have No 06/01/25 05:30 device shut off --Does patient have Pacemaker or ICD? When Was Last Pacemaker Check QUESTION #4 FULL TEXT: You/Your Family Experience fever (hyperthermia) with Anesthesia Last Oral Intake Last Oral intake: Last Oral Intake NPO since Meds taken in AM with sips of water? Meds patient instructed to take am of surgery PONV PONV - service order dispatcher: PONV - service order dispatcher Female HX of Motion Sickness HX of N/V After Surgery Non-Smoker Duration of Surgery greater than 60 minutes Number of Risk Factors PONV Score Height & Weight Height & Weight: Anesthesia: Height & Weight Height 5 ft 05/31/25 04:44 Weight: 67.2 kg 06/01/25 05:30 Body Mass Index (BMI) 29.0 06/01/25 05:30 Respiratory Assessment Respiratory Assessment - service order dispatcher: Respiratory Tract Infection Hx - service order dispatcher Hx Respiratory Tract Infection No 06/01/25 05:30 STOP Sleep Apnea STOP Sleep Apnea - service order dispatcher: STOP Sleep Apnea - service order dispatcher Hx Hypertension Yes 05/31/25 04:45 Hx Sleep Apnea No 05/31/25 04:45 CPAP BIPAP Do you snore loudly (louder Yes 05/31/25 04:45 than talking or can be heard Do you often feel tired/ Yes 05/31/25 04:45 fatigued/ sleepy during daytime? Has anyone observed you stop No 05/31/25 04:45 breathing during sleep? STOP Results Positive 05/31/25 04:45 QUESTION #5 FULL TEXT : Do you snore loudly (louder than talking or can be heard through closed doors)? Tobacco Use History Tobacco Use History - service order dispatcher: Tobacco Use History - service order dispatcher Tobacco Use Smoking Status Former smoker 05/31/25 04:45 Hx Tobacco Use No 05/31/25 04:45 Years Smoking Packs Smoked per Day Smoking Cessation Date was No - quit smoking greater 05/31/25 04:45 within the last 15 years than 15 years ago Hx Smoking Cessation Date 10/28/77 05/31/25 04:45 Hx Smoking Cessation No 05/31/25 04:45 Counseling Hematologic Medial History Hematologic Hx - service order dispatcher: Hematologic Medical Hx - machine inspector Hx of Blood Transfusion Yes 05/31/25 04:45 Hx of Transfusion in last 3 No 05/31/25 04:45 Months Date of Last Transfusion (if within last 3 months) Ever experience any problems No 05/31/25 04:45 with transfusion(s)? Specify any problems Hx of Preganancy in last 3 No 05/31/25 04:45 Months Nurse Filling Out Transfusion DREDICK 05/31/25 04:45 & Questions: Date: 05/31/25 05/31/25 04:45 Time: 04:46 05/31/25 04:45 Patient unable to answer at this time (ie. confused, unrespo /Reproduction History /Reproductive History - service order dispatcher: /Reproductive Hx- service order dispatcher Hx Now No 06/01/25 05:30 Gestational Age (in weeks): EDC: Hx Hx Para Hx Section SAB No 06/01/25 05:30 Active Medications Active Medications: Current Medications Generic Name Dose Route Start Last Admin Trade Name Freq PRN Reason Stop Dose Admin Albuterol Sulfate 2.5 mg 05/31/25 04:40 Albuterol 2.5 Mg/3 Ml Vial.Neb. INHALATION Q2H PRN PRN SOB &/OR WHEEZING Enoxaparin Sodium 40 mg 05/31/25 10:00 06/01/25 08:38 Enoxaparin 40 Mg/0.4 Ml Syringe SC Not Given DAILY ALFREDO Glucagon 1 mg 05/31/25 04:40 Glucagon 1 Mg/Ml Syringe IM X1 PRN HYPOGLYCEMIA Protocol Hydralazine HCl 5 mg 05/31/25 04:40 Hydralazine 20 Mg/Ml Vial IV Q8H PRN PRN SBP GREATER THAN 160 Protocol Pantoprazole Sodium 40 mg/ 100 mls @ 330 mls/hr 05/31/25 04:06 05/31/25 21:28 Sodium Chloride IV Infused 2200 ALFREDO Infusion Levofloxacin 750 mg in 150 mls @ 100 mls/hr 06/01/25 22:00 Levaquin Iv IV Q48@2200 ALFREDO Metronidazole 500 mg in 100 mls @ 100 mls/hr 05/31/25 06:00 06/01/25 14:30 Flagyl IV 0 mls/hr Q8 ALFREDO Infusion Dextrose 250 mls @ 0 mls/hr 05/31/25 04:40 Dextrose 10%-Water IV .Q0M PRN HYPOGLYCEMIA Protocol As Directed Sodium Chloride 250 mls @ 15 mls/hr 06/01/25 09:14 06/01/25 09:23 IV 15 mls/hr .[id number] PRN Administration Saline Flush Sodium Chloride 250 mls @ 15 mls/hr 06/01/25 09:14 IV .[id number] PRN Additional IVPB Infusion Lactated Ringer's 1,000 mls @ 15 mls/hr 06/01/25 15:00 06/01/25 15:00 IV 15 mls/hr .Q48H ALFREDO Administration Insulin Human Lispro 0 unit 05/31/25 06:00 06/01/25 11:49 Insulin Lispro 100 Unit/Ml Insuln.Pen SC Not Given Q6 [facility] Protocol Ketorolac Tromethamine 15 mg 05/31/25 04:40 Ketorolac 15 Mg/Ml Vial IV 06/05/25 04:41 Q8H PRN PRN Pain 1-5/10 or Fever Morphine Sulfate 2 mg 05/31/25 04:40 Morphine 2 Mg/Ml Syringe IV Q4H PRN PRN Pain Score 6-10 Ondansetron HCl 4 mg 05/31/25 04:40 Ondansetron 4 Mg/2 Ml Vial IV Q8H PRN PRN NAUSEA/VOMITING Potassium Chloride 20 meq 06/01/25 17:00 Potassium Chloride Oral Tablet 20 Meq PO BIDCM ALFREDO Sodium Chloride 10 - 40 ml 05/31/25 04:39 06/01/25 11:52 0.9% Saline Lock 10 Ml Syringe IV 10 ml UD PRN Administration SALINE FLUSH Sodium Chloride 10 - 40 ml 06/01/25 09:14 0.9% Saline Lock 10 Ml Syringe IV UD PRN SALINE FLUSH PFSH Medical History Type 2 diabetes mellitus with hyperglycemia Transaminitis Hyperbilirubinemia Pancreatic mass History of uterine cancer Overweight (BMI 25.0-29.9) Jaundice Elevated lipase Mass of head of pancreas Atrial fibrillation Neck pain, bilateral History of TIA (transient ischemic attack) Stroke/cerebrovascular accident Essential hypertension Complaint of melena Transient ischemic attack (03/2021) History of Lundberg's palsy GERD (gastroesophageal reflux disease) History of cancer History of blood transfusion Right atrial mass Former smoker Asthma Diabetes mellitus, type 2 Home Medications ?Medication ?Instructions ?Recorded ?Last Taken ?Type pantoprazole 40 mg tablet,delayed 40 mg PO DAILY gerd #90 tabs 08/28/21 Unknown Rx release atorvastatin 20 mg tablet 20 mg PO QHS hld 03/07/23 Unknown History losartan 100 mg tablet 100 mg PO DAILY bp 03/07/23 Unknown History metoprolol tartrate 50 mg tablet 50 mg PO BID heart 11/21/23 Unknown History apixaban 5 mg tablet 5 mg PO BID blood thinner #180 tabs 04/28/24 Unknown Rx amlodipine 10 mg tablet 10 mg PO DAILY bp #90 tabs 11/10/24 Unknown Rx Allergy/AdvReac Type Severity Reaction Status Date / Time Penicillins Allergy Severe Anaphylaxis Verified 05/30/25 21:31 tetracycline Allergy Severe anaphylaxis Verified 05/30/25 21:31 tramadol (From Ultram) AdvReac Severe syncope Verified 05/30/25 21:31 Family History Mother Pancreatic cancer CAD (coronary artery disease) Father Cancer Lung cancer Brother Parkinson disease Surgical History History of surgery H/O: hysterectomy H/O hemorrhoidectomy History of bladder surgery H/O rhinoplasty History of cataract surgery History of appendectomy Social History Smoking Status: Former smoker how long ago did patient quit smokin+ years alcohol intake: never substance use type: does not use Review of Systems (Anesthesia) ROS Narrative System reviewed and no additional complaints, except as documented.
--- NOTE | 2025-06-01 15:45 | FLU_PTH ---
PATIENT: TELMA OLMOS LOC: [facility] U#:[id number] AGE/SX: 84/F ROOM: [facility]324 RE05/31/[address]: Dr. Oniel Santana MD : 1940 BED: 1 DIS: 06/02/2025 SPEC #: [id number] RECD: 06/01/25 18:41 STATUS: AYLA REQ #: [id number] AMENA: 06/01/25 15:[address]: Mohit Brown DEPT: CYTOLOGY RECD BY: Jovani Naidu ENTERED: 06/02/25 09:24 SP TYPE: Fluid OTHR DR: Dr. Jacoby Dunlap, DO Dr. Oniel Golden, DO MD Dr. Oniel Cloud, DO MD Dr. Danielle Nguyen MD Dr. William Lago, MD Melinda Salyers, STORAGE BATTERY CHARGER-C Janet Patel, STORAGE BATTERY CHARGER-C KAREN Bernstein Tissues: A - Biliary tract, NOS Procedures: Special Stain Group II Surgery Specimen Level IV Cytospin Fluid HEADER OPERATION: ERCP, stent replacement, balloon dilation PRE-OP DIAGNOSIS: Cholangiolitis TISSUE SUBMITTED: A- Biliary stent for cytology DIAGNOSIS CYTOLOGY A. Biliary stent (cytospin, cellblock): - Essentially acellular specimen. - Bile pigments with abundant bacteria noted. CYTOLOGY STUDY Slides are reviewed. CYTOLOGY GROSS A. Received is 12cm blue stent labeled with the patient's name and and designated per the requisition as Biliary stent. Submitted for cytology and cell block preparation. Mr 06/02/2025 CPT: [id number]
--- NOTE | 2025-06-01 15:56 | PCM.POST.ANE ---
Anesthesia: Postop Eval I Current Vital Signs Temperature: 97.3 F Pulse Rate: 71 Blood Pressure: 155/78 Respiratory Rate: 16 Pulse Ox: 97 Assessment Airway patent: Yes Spontaneous unlabored respirations: Yes nausea: No Vomiting: No Anesthesia Complication: No Fluid Hydration Crystalloid volume administer (ml): 300 Total IV fluid infused: 300 Progress Note Anesthesia document: Postop Eval 1 completed: Yes
[2025-06-01] MEDS: Lactated Ringers 500 ML IV (16:15)
--- NOTE | 2025-06-01 16:49 | RAD_ITS ---
EXAM: ERCP BILIARY/PANCREAS; INTRAOPERATIVE FLUOROSCOPY CLINICAL HISTORY: Abdominal pain COMPARISON: ERCP 01/12/2025. Abdominal CT 01/09/2025. TECHNIQUE: 9 intraoperative fluoroscopy images are submitted for review. FINDINGS: Patient is status post ERCP, which demonstrates dilatation of the common bile duct and proximal intrahepatic biliary tree, with no filling defects appreciated to suggest choledocholithiasis. A biliary stent is deployed within the CBD and presumably extending into the duodenum. Total fluoroscopy time 81.3 seconds. Total radiation dose 13.98 mGy. RAD/ERCP Biliary/Pancreas IMPRESSION: Intraoperative fluoroscopy for ERCP, as above. Reading Location: [id number]
--- NOTE | 2025-06-01 17:16 | OP.ERCP_ITS ---
Patient Name: Merced Tineo Procedure Date: 06/01/2025 3:54 PM Date of : 1940 Age: 84 Procedure: ERCP Indications: Suspected ascending cholangitis, Jaundice, Elevated liver enzymes, Malignant tumor of the head of pancreas Providers: Mohit Brown DO Medicines: Monitored Anesthesia Care Patient Profile: This is an 84 year old female. Refer to note in patient chart for documentation of history and physical. Patient has symptoms. Complications: No immediate complications. Procedure: Pre-Anesthesia Assessment: - Prior to the procedure, a History and Physical was performed, and patient medications and allergies were reviewed. The patient is competent. The risks and benefits of the procedure and the sedation options and risks were discussed with the patient. All questions were answered and informed consent was obtained. Patient identification and proposed procedure were verified by the physician in the pre-procedure area. Mental Status Examination: alert and oriented. Airway Examination: normal oropharyngeal airway and neck mobility. Respiratory Examination: clear to auscultation. CV Examination: normal. Prophylactic Antibiotics: The patient does not require prophylactic antibiotics. Prior Anticoagulants: The patient has taken no anticoagulant or antiplatelet agents. ASA Grade Assessment: II - A patient with mild systemic disease. After reviewing the risks and benefits, the patient was deemed in satisfactory condition to undergo the procedure. The anesthesia plan was to use general anesthesia. Immediately prior to administration of medications, the patient was re-assessed for adequacy to receive sedatives. The heart rate, respiratory rate, oxygen saturations, blood pressure, adequacy of pulmonary ventilation, and response to care were monitored throughout the procedure. The physical status of the patient was re-assessed after the procedure. After obtaining informed consent, the scope was passed under direct vision. Throughout the procedure, the patient's blood pressure, pulse, and oxygen saturations were monitored continuously. The Duodenoscope was introduced through the mouth, and advanced to the duodenum and used to inject contrast into the bile duct and ventral pancreatic duct. The ERCP was accomplished without difficulty. The patient tolerated the procedure well. Scope In: 4:35:10 PM Scope Out: 5:07:44 PM Total Procedure Duration Time 0 hours 32 minutes 34 seconds Findings: The slasher film was normal. The esophagus was successfully intubated under direct vision. The scope was advanced to a normal major papilla in the descending duodenum without detailed examination of the pharynx, larynx and associated structures, and upper GI tract. The upper GI tract was grossly normal. A long 0.025 inch Jagwire was passed into the biliary tree. The short-nosed traction sphincterotome was passed over the guidewire and the bile duct was then deeply cannulated. Contrast was injected. I personally interpreted the bile duct images. There was brisk flow of contrast through the ducts. Image quality was adequate. Contrast extended to the entire biliary tree. The lower third of the main bile duct and middle third of the main bile duct contained a single segmental stenosis 7 mm in length. The entire biliary tree except for the cystic duct and gallbladder and entire biliary tree were severely dilated, with a mass causing an obstruction. The largest diameter was 20 mm. A 5 mm biliary sphincterotomy was made with a braided traction (standard) sphincterotome using ERBE electrocautery. There was no post-sphincterotomy bleeding. The biliary tree was swept with a 12 mm balloon starting at the upper third of the main bile duct, middle third of the main bile duct, lower third of the main duct, bifurcation, left intrahepatic duct(s), left main hepatic duct, right intrahepatic duct(s) and right main hepatic duct. Pus was swept from the duct. Sludge was swept from the duct. All stones were removed. Debris was swept from the duct. One stent was removed from the biliary tree using a rat-toothed forceps and snare and sent for cytology. The stent was found to be occluded via the water column test. One 10 mm by 6 cm covered metal stent was placed 5 cm into the common bile duct. Bile flowed through the stent. The stent was in good position. 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 The stricture was malignant appearing. - The entire biliary tree was severely dilated, with a mass causing an obstruction. - Choledocholithiasis was found. Complete removal was accomplished by biliary sphincterotomy and balloon extraction. - A biliary sphincterotomy was performed. - The biliary tree was swept and pus and debris were found. - One stent was removed from the biliary tree. - One covered metal stent was placed into the common bile duct. Procedure Code(s): --- Professional --- 36931, Endoscopic retrograde cholangiopancreatography (ERCP); with removal and exchange of stent(s), biliary or pancreatic duct, including pre- and post-dilation and guide wire passage, when performed, including sphincterotomy, when performed, each stent exchanged [id number], Endoscopic retrograde cholangiopancreatography (ERCP); with removal of calculi/debris from biliary/pancreatic duct(s) 91720, 26, Endoscopic catheterization of the biliary ductal system, radiological supervision and interpretation CPT copyright 2021 [employer]. All rights reserved. The codes documented in this report are preliminary and upon black oxide operator review may be revised to meet current compliance requirements. Mohit Brown DO 06/01/2025 5:16:19 PM This report has been signed electronically. Number of Addenda: 0 Note Initiated On: 06/01/2025 3:54 PM
[2025-06-01 18:32] LABS: Cytology, Body Fluid / CSF SEE PATHOLOGY REPORT
--- NOTE | 2025-06-01 20:11 | POSTOPAN2_ITS ---
Anesthesia Postop Eval I Sum Postop Eval Completion status Anesthesia document: Postop Eval 1 completed: Yes Anesthesia Postop Eval I Summary Anesthesia Postop Eval I Summary: Anesthesia Postop Eval I: Assessment Summary Airway patent Yes 06/01/25 15:56 ALARM SECURITY OR SURVEILLANCE MONITOR.TNES Spontaneous unlabored Yes 06/01/25 15:56 ALARM SECURITY OR SURVEILLANCE MONITOR.TNES respirations Mental status nausea No 06/01/25 15:56 ALARM SECURITY OR SURVEILLANCE MONITOR.TNES Vomiting No 06/01/25 15:56 ALARM SECURITY OR SURVEILLANCE MONITOR.TNES Anesthesia Postop Eval I: Fluid Summary Crystalloid volume administer 300 06/01/25 15:56 ALARM SECURITY OR SURVEILLANCE MONITOR.TNES (ml) Colloids volume administered ( ml) Blood Product volume administered (ml) Total IV fluid infused 300 06/01/25 15:56 ALARM SECURITY OR SURVEILLANCE MONITOR.TNES Anesthesia Postop Eval I: Summary Notes Anesthesia Complication No 06/01/25 15:56 ALARM SECURITY OR SURVEILLANCE MONITOR.TNES Anesthesia Complication Comment: Post-operative progress note Anesthesia: Postop Eval II Evaluation Mental status: Awake and Calm Pain Level: 1 nausea: No Vomiting: No Complications Anesthesia Complication: No
--- NOTE | 2025-06-01 20:11 | PCM.POSTANE2 ---
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 Spontaneous unlabored Yes 06/01/25 15:56 FACILITIES MAINTENANCE WORKER.TNES respirations Mental status nausea No 06/01/25 15:56 FACILITIES MAINTENANCE WORKER.TNES Vomiting No 06/01/25 15:56 FACILITIES MAINTENANCE WORKER.TNES Anesthesia Postop Eval I: Fluid Summary Crystalloid volume administer 300 06/01/25 15:56 FACILITIES MAINTENANCE WORKER.TNES (ml) Colloids volume administered ( ml) Blood Product volume administered (ml) Total IV fluid infused 300 06/01/25 15:56 FACILITIES MAINTENANCE WORKER.TNES Anesthesia Postop Eval I: Summary Notes Anesthesia Complication No 06/01/25 15:56 FACILITIES MAINTENANCE WORKER.TNES Anesthesia Complication Comment: Post-operative progress note Anesthesia: Postop Eval II Evaluation Mental status: Awake and Calm Pain Level: 1 nausea: No Vomiting: No Complications Anesthesia Complication: No
[2025-06-01] MEDS: Pantoprazole Sodium 40 MG in 0.9% Normal Saline (100mL MB+) 100 ML 330 MG IV (21:49)
[2025-06-02] MEDS: levoFLOXacin IV 750 MG/150 ML BAG 100 MG IV (00:37)
[2025-06-02 05:00] VITALS: BP 175/77; PULSE 91; RESP 15; TEMP 36.7; O2SAT 97
[2025-06-02 05:41] VITALS: BMI 29.0
[2025-06-02] MEDS: metroNIDAZOLE 500 MG/100 ML BAG 100 MG IV (05:46)
[2025-06-02 05:47] VITALS: BP 175/77; PULSE 91
--- NOTE | 2025-06-02 07:47 | PN.HOSP_ITS ---
Reason for Visit Chief Complaint: Fever and Abdominal Pain. Subjective Subjective Patient underwent ERCP the day prior findings as below. Patient refusing lab draws this morning. Plan is for patient to be assessed for possible discharge this a.m. Objective Data Objective Data Vital Signs: Vital Signs Temp Pulse Resp BP Pulse Ox O2 Del Method 98.1 F 91 15 175/77 H 97 Room Air 06/02/25 05:00 06/02/25 05:47 06/02/25 05:00 06/02/25 05:47 06/02/25 05:00 06/02/25 06:41 Oxygen Delivery Method Room Air Weight: 67.1 kg Body Mass Index (BMI) 29.0 Intake & Output: Intake and Output for Last 24 Hours 05/31/25 06/01/25 06/02/25 23:59 23:59 23:59 Intake Total 2272.92 / 2272.92 1600.00 / 1600.00 600 / 600 Output Total 2 / 2 Balance 2272.92 / 2272.92 1598.00 / 1598.00 600 / 600 Lab / Micro Data 06/01/25 05:12 06/01/25 05:12 Micro: Microbiology 05/30/25 22:15 Mucosa - Nose SARS-CoV-2, Influenza & RSV (PCR) - Final Radiography Diagnostic Testing: Radiology Impression Endo Retro Cholangiopancreatogram 06/01/25 16:49 IMPRESSION: Intraoperative fluoroscopy for ERCP, as above. Reading Location: [facility] Physical Exam Narrative GENERAL: cooperative HEENT: Atraumatic; normocephalic EYES; Anicteric, Normal Conjunctiva NECK; supple, normal thyroid, RESPIRATORY: Diminished to auscultation CARDIOVASCULAR: Regular S1 S2, GI: soft, normoactive bowel sounds, : No Renal angle tenderness; EXTREMITIES: No edema, no clubbing, MUSCULOSKELETAL: no muscle wasting NEURO: Awake; no lateralizing signs. 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 An assessment of acute cholangitis made started on broad-spectrum antibiotic therapy admitted to regular nursing floor for further management 1. Suspected acute cholangitis ? In a patient with underlying pancreatic CA with previous stent placement. Patient was placed on broad-spectrum antibiotic therapy consult placed to GI patient seen by Dr. Brown plan is for patient to undergo ERCP with stent exchange ? 06/02/2025; ERCP and procedures performed as A single segmental biliary stricture was found in the lower third of the main bile duct and middle third of the main bile duct. The stricture was malignant appearing. - The entire biliary tree was severely dilated, with a mass causing an obstruction.- Choledocholithiasis was found. Complete removal was accomplished by biliary sphincterotomy and balloon extraction.- A biliary sphincterotomy was performed. - The biliary tree was swept and pus and debris were found. - One stent was removed from the biliary tree. One covered metal stent was placed into the common bile duct. 2. Pancreatic CA ? Patient underwent pancreatic duct placement at [facility], started on chemo but stopped 2 weeks because of side effects. GI currently recommending palliative care consultation 3. 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 Sodium level on admission was 131, 139 as of 06/01/2025. Will continue with subsequent monitoring of sodium levels 4. Hypokalemia ? Patient potassium levels on admission was 3.1 still remains 3.1 additional potassium replacement given 5. Diabetes mellitus type II Placed on long acting insulin, Accu-Cheks a.c. and at bedtime and covered with sliding scale insulin 6. Chronic A-fib ? Rate controlled on metoprolol and systemic anticoagulation with apixaban. Apixaban held on admission 7. GERD ? On PPI 8. Anemia ? Secondary to chronic disorder/anemia of malignancy monitoring H&H and transfuse if patient becomes symptomatic or hemoglobin falls below 7 9. Dyslipidemia ?Patient is on statin therapy, continued at home dose 10. History of previous TIA/CVA ? Resultant mild cognitive impairment 11. Mild intermittent asthma ? Currently not in exacerbation aerosol treatment as needed 12. DVT prophylaxis ? Subcu Lovenox for Time spent in the patient's overall evaluation,decision-making process, review of diagnostic data, adjustment of management, discussion with other providers, nursing nursing and ancillary staff involved in patient's care documentation, 52 Minutes Charges/Coding Visit Charges Inpatient E&M: 92904 Subs Hosp L2
--- NOTE | 2025-06-02 07:52 | PCM.DC.SUM ---
Providers Date of Admission: 05/31/25 Date of Discharge: 06/02/25 Primary Care Physician: Dr. Terell Scott MD Consultations 05/31/25 07:50 Consult: Gastroenterology Routine Consulting Provider: [facility] Reason for Consult: Colangitis with Pancreatic Cancer EMERGENT Consult: No MD Notified: Yes Date Notified: 05/31/25 Time Notified: 07:50 Method of Notification: Text Comments:: Pt wants to remain full code Reason For Visit: ACUTE CHOLANGITIS WITH HYPERBILIRUBINEMIA Diagnosis Discharge Diagnosis (1) Cholangiolitis: Status: Acute Code(s): K83.09 - Other cholangitis (2) Hyperbilirubinemia: Status: Acute Code(s): E80.6 - Other disorders of bilirubin metabolism (3) Transaminitis: Status: Acute Code(s): R74.01 - Elevation of levels of liver transaminase levels (4) Pancreatic cancer: Status: Acute Code(s): C25.9 - Malignant 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, unspecified Qualifiers: Pancreatic malignancy location: unspecified Qualified Code(s): C25.9 - Malignant 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, unspecified (5) Hyponatremia: Status: Acute Code(s): E87.1 - Hypo-osmolality and hyponatremia (6) Hypokalemia: Status: Acute Code(s): E87.6 - Hypokalemia (7) Type 2 diabetes mellitus with hyperglycemia: Status: Acute Code(s): E11.65 - Type 2 diabetes mellitus with hyperglycemia Qualifiers: 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 An assessment of acute cholangitis made started on broad-spectrum antibiotic therapy admitted to regular nursing floor for further management 1. Suspected acute cholangitis ? In a patient with underlying pancreatic CA with previous stent placement. Patient was placed on broad-spectrum antibiotic therapy consult placed to GI patient seen by Dr. Brown plan is for patient to undergo ERCP with stent exchange ? 06/02/2025; ERCP and procedures performed as A single segmental biliary stricture was found in the lower third of the main bile duct and middle third of the main bile duct. The stricture was malignant appearing. - The entire biliary tree was severely dilated, with a mass causing an obstruction.- Choledocholithiasis was found. Complete removal was accomplished by biliary sphincterotomy and balloon extraction.- A biliary sphincterotomy was performed. - The biliary tree was swept and pus and debris were found. - One stent was removed from the biliary tree. One covered metal stent was placed into the common bile duct. 2. Pancreatic CA ? Patient underwent pancreatic duct placement at [facility], started on chemo but stopped 2 weeks because of side effects. GI currently recommending palliative care consultation 3. 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 Sodium level on admission was 131, 139 as of 06/01/2025. Will continue with subsequent monitoring of sodium levels 4. Hypokalemia ? Patient potassium levels on admission was 3.1 still remains 3.1 additional potassium replacement given 5. Diabetes mellitus type II Placed on long acting insulin, Accu-Cheks a.c. and at bedtime and covered with sliding scale insulin 6. Chronic A-fib ? Rate controlled on metoprolol and systemic anticoagulation with apixaban. Apixaban held on admission 7. GERD ? On PPI 8. Anemia ? Secondary to chronic disorder/anemia of malignancy monitoring H&H and transfuse if patient becomes symptomatic or hemoglobin falls below 7 9. Dyslipidemia ?Patient is on statin therapy, continued at home dose 10. History of previous TIA/CVA ? Resultant mild cognitive impairment 11. Mild intermittent asthma ? Currently not in exacerbation aerosol treatment as needed 12. DVT prophylaxis ? Subcu Lovenox for Time spent in the patient's overall evaluation,decision-making process, review of diagnostic data, adjustment of management, discussion with other providers, nursing nursing and ancillary staff involved in patient's care documentation, 35 Minutes Medications at Discharge Home Medications pantoprazole 40 mg tablet,delayed release 40 mg PO DAILY gerd #90 tabs 08/28/21 atorvastatin 20 mg tablet 20 mg PO QHS hld 03/07/23 losartan 100 mg tablet 100 mg PO DAILY bp 03/07/23 metoprolol tartrate 50 mg tablet 50 mg PO BID heart 11/21/23 apixaban 5 mg tablet 5 mg PO BID blood thinner #180 tabs 04/28/24 amlodipine 10 mg tablet 10 mg PO DAILY bp #90 tabs 11/10/24 levofloxacin 500 mg tablet 500 mg PO DAILY #7 tabs 06/02/25 metronidazole 500 mg tablet 500 mg PO TID #21 tabs 06/02/25 potassium chloride 20 mEq tablet,extended release(part/cryst) 20 meq PO BIDCM #30 tabs 06/02/25 Physical Exam Narrative GENERAL: cooperative HEENT: Atraumatic; normocephalic EYES; Anicteric, Normal Conjunctiva NECK; supple, normal thyroid, RESPIRATORY: Diminished to auscultation CARDIOVASCULAR: Regular S1 S2, GI: soft, normoactive bowel sounds, : No Renal angle tenderness; EXTREMITIES: No edema, no clubbing, MUSCULOSKELETAL: no muscle wasting NEURO: Awake; no lateralizing signs. SKIN: No Rash PSYCH; Flat affect Weight / BMI Weight Weight: 67.1 kg Body Mass Index (BMI) 29.0 ABG / Lab / Microbiology Data 06/01/25 05:12 06/01/25 05:12 Microbiology: Microbiology 05/30/25 23:43 Blood Culture (Wb) - Left Hand Blood Culture - Preliminary No growth in 48 hours. 05/30/25 21:55 Blood Culture (Wb) - Anticubital Right Blood Culture - Preliminary No growth in 48 hours. 05/30/25 22:15 Mucosa - Nose SARS-CoV-2, Influenza & RSV (PCR) - Final Radiography Diagnostic Testing: Radiology Impression Endo Retro Cholangiopancreatogram 06/01/25 16:49 IMPRESSION: Intraoperative fluoroscopy for ERCP, as above. Reading Location: [facility] D/C Instructions Discharge Activity: Return to Normal Activity Call your doctor if you observe: Fever of 101 or Higher, Shortness of breath, Fainting spells and Chest pain DC O2, CPAP, BIPAP Needs Home O2 Discharge instructions: No Meaningful Use Info Meaningful Use Meaningful Use Diagnoses (Choose all that apply): None applicable Discharge Plan Admission Admit Date/Time: 05/31/25 03:58 Attending Provider: Oniel Santana Primary Care Provider: Terell Scott Consulting Providers: Oniel Golden; Jacoby uDnlap Discharge Orders/Prescriptions Prescriptions: New potassium chloride 20 mEq Tablet,Er Particles/Crystals 20 meq PO BIDCM Qty: 30 0RF levofloxacin 500 mg tablet 500 mg PO DAILY Qty: 7 0RF metronidazole 500 mg tablet 500 mg PO TID Qty: 21 0RF Continued pantoprazole 40 mg tablet,delayed release (DR/EC) 40 mg PO DAILY Qty: 90 3RF metoprolol tartrate 50 mg tablet 50 mg PO BID losartan 100 mg tablet 100 mg PO DAILY atorvastatin 20 mg tablet 20 mg PO QHS Patient Comments: TAKE 1 TABLET BY MOUTH ONCE DAILY apixaban 5 mg tablet 5 mg PO BID Qty: 180 3RF amlodipine 10 mg tablet 10 mg PO DAILY Qty: 90 3RF Referrals / Follow Up: Mohit Brown DO [Med Staff - Active Staff] - Within 2 Weeks Terell Scott MD [Primary Care Provider] - Within 1 Week Disposition Disposition (needs filled in before D/C Order can be placed): Home, Self Care Charges/Coding Visit Charges Inpatient E&M: 71633 Disch Hosp >30min
[2025-06-02 08:13] VITALS: BP 157/64; PULSE 100; RESP 16; TEMP 36.6; O2SAT 99
--- NOTE | 2025-06-02 11:32 | PHA.DC.MC.R ---
Pharmacy [facility] has performed discharge medication reconciliation and counseling for this patient. 1. POTASSIUM CHLORIDE 20MEQ PO BIDCM 2. LEVOFLOXACIN 500MG PO DAILY X 7 DAYS 3. METRONIDAZOLE 500MG PO TID X 7 DAYS The patient's discharge medication list was reviewed for discrepancies and discrepancies were resolved. The patient was counseled on the following discharge medications and changes in medications for homegoing were reviewed. The Reason for Use, instructions for use, and potential side effects were reviewed for all new medications. The patient's questions regarding all of their medications were answered. The patient was able to verbally demonstrate an understanding of their discharge medications. Medications at Discharge Home Medications pantoprazole 40 mg tablet,delayed release 40 mg PO DAILY gerd #90 tabs 08/28/21 atorvastatin 20 mg tablet 20 mg PO QHS hld 03/07/23 losartan 100 mg tablet 100 mg PO DAILY bp 03/07/23 metoprolol tartrate 50 mg tablet 50 mg PO BID heart 11/21/23 apixaban 5 mg tablet 5 mg PO BID blood thinner #180 tabs 04/28/24 amlodipine 10 mg tablet 10 mg PO DAILY bp #90 tabs 11/10/24 levofloxacin 500 mg tablet 500 mg PO DAILY #7 tabs 06/02/25 metronidazole 500 mg tablet 500 mg PO TID #21 tabs 06/02/25 potassium chloride 20 mEq tablet,extended release(part/cryst) 20 meq PO BIDCM #30 tabs 06/02/25
--- NOTE | 2025-06-02 12:19 | CASEMGMT ---
Social Work- SW met with pt and pt dtr to discuss discharge plans. Pt and pt dtr both report that they do not want palliative provider list and plan to d/c home with family assistance. Pt ands pt dtr report no needs or concerns regarding d/c plans home. VICKY Joseph
== END 2025-06-02 13:12 | disposition home or self-care (01) | DRG 445 ==
LOC: ED 05-31 03:40 → MS3 05-31 04:20
PROVIDERS: Anesthesiology; Hospitalist; Internal Medicine Gastroenterology; Admitting Provider Internal Medicine; Emergency Provider Emergency Medicine; PCP Family Medicine; Visit Provider Internal Medicine
PROC: 0FC98ZZ Extirpation of Matter from Common Bile Duct, Via Natural or Artificial Opening Endoscopic (ICD-10-PCS; CPT 43260; principal; 2025-06-01 15:25)
DX: K80.33 Calculus of bile duct with acute cholangitis with obstruction (principal); E22.2 Syndrome of inappropriate secretion of antidiuretic hormone; C25.0 Malignant neoplasm of head of pancreas; I48.20 Chronic atrial fibrillation, unspecified; I69.318 Other symptoms and signs involving cognitive functions following cerebral infarction; D63.8 Anemia in other chronic diseases classified elsewhere; E11.65 Type 2 diabetes mellitus with hyperglycemia; D63.0 Anemia in neoplastic disease; D72.829 Elevated white blood cell count, unspecified; E66.3 Overweight; I10 Essential (primary) hypertension; J45.20 Mild intermittent asthma, uncomplicated; E78.5 Hyperlipidemia, unspecified; K21.9 Gastro-esophageal reflux disease without esophagitis; I25.10 Atherosclerotic heart disease of native coronary artery without angina pectoris; Z79.4 Long term (current) use of insulin; M19.90 Unspecified osteoarthritis, unspecified site; M54.2 Cervicalgia; E87.6 Hypokalemia; E80.6 Other disorders of bilirubin metabolism; K83.8 Other specified diseases of biliary tract; G89.29 Other chronic pain; R74.01 Elevation of levels of liver transaminase levels; Z68.29 Body mass index [BMI] 29.0-29.9, adult; Z85.41 Personal history of malignant neoplasm of cervix uteri; Z53.20 Procedure and treatment not carried out because of patient's decision for unspecified reasons; Z88.0 Allergy status to penicillin; Z95.5 Presence of coronary angioplasty implant and graft; Z79.01 Long term (current) use of anticoagulants; Z79.82 Long term (current) use of aspirin; Z79.899 Other long term (current) drug therapy; Z87.891 Personal history of nicotine dependence
CPT/HCPCS: 36415; 71260; 74177; 74330; 76000; 80053; 81001; 83036; 83605; 83690; 83735; 84100; 85025; 87040; 87631; 88108; 88305; 88313; 93005; 99284; C1874; Q9967; A4216; J2405

== ENCOUNTER → 2025-08-03 | Outpatient (CLI) | payer MEDICARE, MEDICAID, SELFPAY ==
[2025-08-03 13:11] LABS: Hematocrit 37.7 % (37-47); Hemoglobin 12.3 g/dL (12.0-15.0); Immature Granulocytes Count 0.030 X10^3/uL (0.0-0.0); Mean Corp Hgb Conc 32.6 g/dL (32-36); Mean Corpuscular Volume 85.1 fL (81-99); Mean Platelet Vol. 12.6 fl (6.2-12.0); NRBC Flagged by Analyzer 0 % (0-5); Platelet Count 226 K/mm3 (150-450); RBC Distribution Width CV 14.9 % (11.6-14.6); RBC Distribution Width SD 45.9 fl (35.1-43.9); Red Blood Count 4.43 M/mm3 (4.2-5.4); White Blood Count 9.0 K/mm3 (4.4-11.0)
[2025-08-03 14:25] LABS: AST(SGOT) 27 U/L (<=31); Alanine Aminotransfer ALT/SGPT 18 U/L (<=34); Albumin, Serum 4.2 g/dL (3.4-4.8); Alkaline Phosphatase 112 U/L (35-104); Anion Gap 13 (5-15); BUN 13 mg/dL (4-19); BUN/Creat Ratio 16.3 RATIO (10-20); Calcium,Total 9.9 mg/dL (7.6-11.0); Carbon Dioxide 19.8 mmol/L (21.0-32.0); Chloride 100 mmol/L (98-108); Globulin 3.6 g/dL (2.2-4.2); Glucose 247 mg/dL (70-99); Potassium 4.5 mmol/L (3.3-5.1)
[2025-08-03 15:16] LABS: CRP < 3.00 mg/L (0.0-3.0); LDH 178 U/L (84-246)
[2025-08-04 14:08] LABS: Carbohydrate Ag 19-9 2261 234 U/mL (0-35)
== END | disposition home or self-care (01) ==
PROVIDERS: PCP Family Medicine; Referring Provider Internal Medicine Gastroenterology; Visit Provider Internal Medicine Gastroenterology
DX: C25.9 Malignant 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, unspecified (principal); D64.9 Anemia, unspecified
CPT/HCPCS: 36415; 80053; 83615; 85025; 85652; 86140; 86301

== ENCOUNTER → 2025-08-19 | Outpatient (CLI) | payer MEDICARE, MEDICAID, SELFPAY | END | disposition home or self-care (01) | PROVIDERS: PCP Family Medicine; Referring Provider Internal Medicine Gastroenterology; Visit Provider Internal Medicine Gastroenterology | DX: C25.9 Malignant 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, unspecified (principal) | CPT/HCPCS: 74177; Q9967; A4216 ==

== ENCOUNTER 2025-10-10 11:07 | Emergency (ER) | payer MEDICARE, MEDICAID, SELFPAY ==
[2025-10-10 11:07] VITALS: BP 177/129; PULSE 98; RESP 16; TEMP 36.1; O2SAT 100
--- NOTE | 2025-10-10 11:19 | EX.ED.GENINJ ---
HPI History of Present Illness Chief Complaint: Other, Pain/Inj PFSH PFSH Medical History Type 2 diabetes mellitus with hyperglycemia Transaminitis Hyperbilirubinemia Pancreatic mass History of uterine cancer Overweight (BMI 25.0-29.9) Jaundice Elevated lipase Mass of head of pancreas Atrial fibrillation Neck pain, bilateral History of TIA (transient ischemic attack) Stroke/cerebrovascular accident Essential hypertension Complaint of melena Transient ischemic attack (03/2021) History of Lundberg's palsy GERD (gastroesophageal reflux disease) History of cancer History of blood transfusion Right atrial mass Former smoker Asthma Diabetes mellitus, type 2 Home Medications ?Medication ?Instructions ?Recorded ?Last Taken ?Type pantoprazole 40 mg tablet,delayed 40 mg PO DAILY gerd #90 tabs 08/28/21 Unknown Rx release losartan 100 mg tablet 100 mg PO DAILY bp 03/07/23 Unknown History metoprolol tartrate 50 mg tablet 50 mg PO BID heart 11/21/23 Unknown History apixaban 5 mg tablet 5 mg PO BID blood thinner #180 tabs 06/15/25 Unknown Rx insulin human U-100 NPH-regulr 10 unit subcut 06/15/25 Unknown History 70-30 mix 100 unit/mL subcutaneous susp (Novolin 70/30 U-100 Insulin) insulin syringe-needle U-100 0.3 #10 ea 06/15/25 Unknown History mL 31 gauge x 5/16 lidocaine 4 % topical patch 1 patch topical BID PRN pain #30 ea 10/10/25 Unknown Rx orphenadrine citrate 100 mg 100 mg PO BID 7 days #14 tabs 10/10/25 Unknown Rx tablet,extended release oxycodone 5 mg tablet 5 mg PO Q6H PRN pain 7 days #28 10/10/25 Unknown Rx tabs prednisone 20 mg tablet 20 mg PO DAILY 5 days #5 TABLETS 10/10/25 Unknown Rx Allergy/AdvReac Type Severity Reaction Status Date / Time Penicillins Allergy Severe Anaphylaxis Verified 10/10/25 11:08 tetracycline Allergy Severe anaphylaxis Verified 10/10/25 11:08 tramadol (From Ultram) AdvReac Severe syncope Verified 10/10/25 11:08 Family History Mother Pancreatic cancer CAD (coronary artery disease) Father Cancer Lung cancer Brother Parkinson disease Surgical History History of surgery H/O: hysterectomy H/O hemorrhoidectomy History of bladder surgery H/O rhinoplasty History of cataract surgery History of appendectomy Social History (Updated 10/10/25 @ 11:24 by Silvana Guerrero) household members: none housing: apartment Smoking Status: Former smoker how long ago did patient quit smokin+ years alcohol intake: never substance use type: does not use EXAM Physical Exam Const Vital Signs: 10/10/25 11:07 10/10/25 11:27 10/10/25 13:07 Temperature 97.0 F L Temperature Source Temporal Pulse Rate 98 80 Respiratory Rate 16 16 Respiratory Effort Normal Non-Labored Respiratory Pattern Normal Blood Pressure 177/129 H 155/67 H Blood Pressure Mean 145 96 Pulse Ox 100 97 Oxygen Delivery Method Room Air Room Air MDM MDM MDM Narrative Medical decision making narrative: HISTORY OF PRESENT ILLNESS: Chief complaint: Neck pain 85-year-old female history of type 2 diabetes, pancreatic cancer, hyperbilirubinemia, hyperlipidemia presents with neck pain. Notes it hard for her to move. She has been having difficulty eating and drinking for a few days secondary to neck pain. Notes she has currently stopped treatment for pancreatic cancer. The patient further states no falls. No trauma. No loss of movement sensation in the upper extremities REVIEW OF SYSTEMS: Pertinent positives: Neck pain Pertinent negatives: As per HPI PHYSICAL EXAM: Nursing triage notes reviewed, Vital signs reviewed Constitutional: please see mdm HENT: MMM, posterior oropharynx patent, uvula midline, no signs of tonsillar erythema or exudates. No pooling of secretions. No trismus. No submandibular edema. Eyes: Pupils equal round and reactive to light, Extraocular muscles intact Neck: No stridor, no JVD, full neck ROM, no midline step-off deformity cervical spine, no midline TTP, bilateral paraspinal muscle TTP. Lungs: Clear to auscultation, No wheezing or rales. No increased work of breathing, no conversational dyspnea, no accessory muscle use, no nasal flaring. No respiratory distress noted Heart: Regular rate and rhythm, No murmurs, No rubs and No gallops, 2+ distal pulses (radial, femoral, posterior tibial) in all extremities Neuro: Intact 5/5 strength with ok sign (median), intact finger abduction (ulnar) intact wrist extension (radial n). Intact sensation in the radial, ulnar, and median nerve distributions. Skin: No rash or lesions noted MEDICAL DECISION MAKING: Chief Complaint: please see HPI External records reviewed: Reviewed prior imaging studies: Reviewed CT scan of the cervical spine from 2023 showed degenerative changes but no bony abnormalities noted. Factors affecting care: as per HPI Social determinants of health: Elderly patient History obtained from others: Family Consults: none Goals of care: DNR-[facility] Narrative: Patient was initially hemodynamically stable, afebrile and nontoxic-appearing. Exam no focal neurologic deficits. No obvious as a trauma. No carotid bruits to suggest carotid artery dissection. I considered the following differential diagnosis: Cervical spine fracture, dislocation, musculoskeletal cervical spine pain, amongst others I obtained to further determine if the patient was suffering from a life-threatening etiology. Pain to CT scan of the neck. Initially treat the patient's pain with oral Tylenol, lidocaine patch, Norflex, oxycodone and prednisone ALL IMAGES (IF OBTAINED) HAVE BEEN PERSONALLY REVIEWED AND INTERPRETED BY MYSELF. CT scan of the cervical spine showed concern for neck mass and possible metastatic cancer. 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 Family essentially wanted comfort measures. Patient was provided with narcotic pain control, steroids, lidocaine patches and instructions to take Tylenol ibuprofen for ongoing pain control at home. The patient and/or family, caregivers express understanding. The patient and/or family, caregivers agrees with the plan. Shared decision making: I will have a discussion with the patient and or visitors regarding risk/benefits of further testing or admission. They will be made aware of of the risk/benefits inherent in this decision they will be given the opportunity to voice understanding. Total critical care time today provided was at least 0 minutes. This excludes separately billable procedures. Critical care time (if documented) is secondary to the patient having high probability of clinically significant/life threatening deterioration in the patient's condition which required my urgent intervention. Impression: 1. Acute neck pain 2. Metastatic pancreatic cancer 3. Neck mass Dispo: Discharge home This note was generated with [employer] dictation software. It may contain incorrect words, spelling, and punctuation that were not noted in review of the chart prior to signing. Lab Data Labs: Laboratory Results - last 24 hr 10/10/25 11:38 POC Glucose 283 H Radiography Diagnostic Testing: Clinical Impression(s) from Imaging Studies Cervical Spine CT 10/10/25 11:40 IMPRESSION: No CT evidence of acute traumatic injury to the cervical spine. Moderate cervical spondylosis. Mass-like density measuring 14 mm in the right parapharyngeal fat pad, incompletely imaged but present on the previous study. 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 However, further evaluation is limited due to lack of IV contrast. Consider further evaluation with a CT of the neck with IV contrast. Reading Location: [id number] Discharge Plan Triage Chief Complaint: Other, Pain/Inj ED Provider: Maurizio Michelle Dx/Rx/DC Orders Clinical Impression: Neck pain, bilateral, Mass of neck Instructions: ED Neck Pain Prescriptions: New oxycodone 5 mg tablet 5 mg PO Q6H PRN (Reason: pain) 7 Days Qty: 28 0RF lidocaine 4 % adhesive patch,medicated 1 patch topical BID PRN (Reason: pain) Qty: 30 0RF prednisone 20 mg tablet 20 mg PO DAILY 5 Days Qty: 5 0RF orphenadrine citrate 100 mg tablet extended release 100 mg PO BID 7 Days Qty: 14 0RF No Action pantoprazole 40 mg tablet,delayed release (DR/EC) 40 mg PO DAILY Qty: 90 3RF metoprolol tartrate 50 mg tablet 50 mg PO BID losartan 100 mg tablet 100 mg PO DAILY Novolin 70/30 U-100 Insulin 100 unit/mL (70-30) suspension 10 unit subcut (DME) insulin syringe-needle U-100 0.3 mL 31 gauge x 5/16 syringe See Rx Instructions .ROUTE BID Qty: 10 Rx Instructions: As directed apixaban 5 mg tablet 5 mg PO BID Qty: 180 3RF Primary Care Provider: Terell Scott Referrals: Your Oncologist [Other] Anastacio Rodriguez MD [Med Staff - Active Staff, Pain Management] Gino Cummings MD [Med Staff - Active Staff, Oncology] Activity Restrictions/Additional Instructions: Thank you for trusting us with your care today! Your CT scan showed likely progression of your known pancreatic cancer. This called metastatic disease. There is a mass in your neck that is approximately 14 mm. This is likely causing your pain. Please take Tylenol (2 pills, 650 mg), ibuprofen (2 pills, 400 mg) every 6 hours as needed for pain and fever control. Please take Norflex/orphenadrine for muscle relaxation. Please take prednisone as prescribed. Please take oxycodone for breakthrough pain. Please return to the emergency department if your symptoms change or worsen. Please follow with your Oncologist as well as a Pain Management Physician for further outpatient evaluation and management. Print Language: Korean Disposition Disposition: Home, Self Care
--- OUTSIDE RECORDS SUMMARY | 2025-10-10 11:39 | XMS RPT_ITS | CCD ---
Author Organization [facility] Care Team Providers Care Circulation Sales Representative Name Role Phone Henok Martinez MD Primary [...] Provider Dr. Zachary Sarabia Attending Provider Haagen WEIGHER AND CHARGER.CRATE BUILDER, Clarita Unavailable Suppan WEIGHER AND CHARGER.CRATE BUILDER, Virginia A Unavailable [phone] Suppan WEIGHER AND CHARGER.CRATE BUILDER, Virginia A Unavailable Suppan WEIGHER AND CHARGER.CRATE BUILDER, Virginia A Unavailable Humberto AGUDELO, Iona Unavailable Michelle HELMS, Dr. Figueredo Primary Care Provider Dr. Henok Martinez MD Attending Provider Dr. Henok Martinez MD Referring Provider Dr. Hung Remy DO Emergency Provider de David DO, Dr. Engle Admit Provider Unavail able de David DO, Dr. Engle Attending Provider Unav ailable Jonel CLARK, Dr. Persaud Emergency Provider de David DO, Dr. Engle Admit Provider Unavail able de David DO, Dr. Engle Other Provider Unavail able Jazmin CLARK, Dr. Garcia Attending Provider Booker CLARK, Dr. Hussein Other Provider Jazmin CLARK, Dr. Garcia Other Provider Stephanie DO, Dr. Rueda Attending Provider Arun AGUDELO, Danielle Trevino Unavailable Unavailable Paramjit HELMS, Juan Miguel Unavailable Royer AGUDELO, Oma Unavailable Wilbert PERRY, Escobar Unavailable Unavailable Jluis HELMS, Ayaz Unavailable Rosa Padilla Unavailable Unavailabl lacy Cagle RN, Radha B Unavailable Unavailable HENOK MARTINEZ Primary Care Unavailable VIRGINIA GARCIA Referring Unavailable HENOK MARTINEZ Primary Care Unavailable VIRGINIA GARCIA Referring Unavailable Herbie HELMS, Lamar Unavailable Michelle HELMS, Dr. Figueredo Primary Care Provider Meme CLARK, Dr. Orona Emergency Provider de David DO, Dr. Engle Admit Provider Unavail able de David DO, Dr. Engle Attending Provider Unav ailable de David DO, Dr. Engle Other Provider Unavail able Dr. Oniel Santana MD Attending Provider Unavaila ramiro Dunlap DO, Dr. Dozier Other Provider Dr. Oniel Salamanca DO Other Provider Celina HELMS, Dr. Reardon Other Provider García HELMS, Dr. Santos Other Provider [phone] Lori FOUNDER PRESIDENT AND CEO-C, Elle Other Provider Unavailabl e Amanda FOUNDER PRESIDENT AND CEO-C, Janet Other Provider Diann Avila Other Provider Stephanie CLARK, Dr. Rueda Attending Provider Max HELMS, Dr. Engle Other Provider Unavailable MICHELLE, HENOK Jone Primary Care Unavailable BLU BOGGS II Admitting Unavailable ROSALINDA GONSALVES Attending Unavailable ASHUTOSH FREEMAN Consulting Unavailable VIN GUERRA Attending Unavailable LENA PACE Referring Unavailable MICHELLE, HENOK Becerril Primary Care Unavailable ADRIÁN HORTA Attending Unavailab LENA Rankin Referring Unavailable MICHELLE, HENOK Becerril Primary Care Unavailable AYAZ BAZZI Attending Unavailable MICHELLE, HENOK Becerril Primary Care Unavailable AYAZ BAZZI Attending Unavailable MICHELLE, HENOK Becerril Primary Care Unavailable GUILLE GARNICA Referring Unavailabl e MICHELLE, HENOK Becerril Primary Care Unavailable TIGRE PRESTON Admitting Unavailable CIELO LANCASTER Attending Unavailable FAZAL BREEN Consulting Unavailable Michelle HELMS, Dr. Figueredo Referring Provider Dr. Zachary Sarabia MD Attending Provider Dr. Henok Martinez MD Primary Care Physician Dr. Yeyo Valentine DO Emergency Department Physician Golden DO, Dr. Engle Admitting Physician Polly vailable Golden DO, Dr. Engle Nurse Practitioner Unav Dr. Oniel Kang MD Attending Physician Unavail able Dr. Jacoby Dunlap DO Nurse Practitioner Dr. Oniel Salamanca DO Nurse Practitioner Dr. Caron Patrick MD Nurse Practitioner [phone] García HELMS, Dr. Santos Nurse Practitioner Lori FOUNDER PRESIDENT AND CEO-CElle Nurse Practitioner Unavail able Amanda FOUNDER PRESIDENT AND CEO-CJanet Nurse Practitioner Diann Avila Nurse Practitioner Golden DO, Dr. Engle Referring Provider Unav ailrichy Brown DO, Dr. Rueda Attending Physician Dr. Oniel Santana MD Nurse Practitioner Unavaila ble Kittoe MD, Dr. Engle Referring Provider Unavailkush Sarabia MD, Dr. Sharma Attending Physician [phone] MICHELLE, HENOK J Referring Unavailable MICHELLE, HENOK J Primary Care Unavailable MICHELLE, HENOK J Referring Unavailable MICHELLE, HENOK J Primary Care Unavailable ASHUTOSH FREEMAN Referring Unavailable ABRAMOVICJUAN MIGUEL Araiza Attending Unavailable MICHELLE, HENOK J Primary Care Unavailable MICHELLE, HENOK Becerril Primary Care Unavailable ANGELIA HART Attending Unavailable MICHELLE, HENOK J Primary Care Unavailable MICHELLE, HENOK J Attending Unavailable MICHELLE, HENOK J Primary Care Unavailable ABRJUAN MIGUEL SANTIAGO Referring Unavailable MICHELLE, HENOK J Primary Care Unavailable ABRAMALEXANDRA, JUAN MIGUEL Referring Unavailable MICHELLE, HENOK Becerril Primary Care Unavailable ABRAMOVICTeodora, JUAN MIGUEL Referring Unavailable MICHELLE, HENOK J Primary Care Unavailable ABRAMOVICTeodora, JUAN MIGUEL Referring Unavailable MICHELLE, HENOK J Referring Unavailable MICHELLE, HENOK Becerril Primary Care Unavailable MICHELLE, HENOK Becerril Referring Unavailable MICHELLE, HENOK Becerril Primary Care Unavailable MICHELLE, HENOK Becerril Referring Unavailable MICHELLE, HENOK Becerril Primary Care Unavailable MICHELLE, HENOK Becerril Primary Care Unavailable MICHELLE, HENOK Becerril Attending Unavailable MICHELLE, HENOK Becerril Primary Care Unavailable ABRAMOVICJUAN MIGUEL Araiza Referring Unavailable MICHELLE, HENOK Becerril Primary Care Unavailable JIMAMOVICTeodora, JUAN MIGUEL Referring Unavailable MICHELLE, HENOK Becerril Primary Care Unavailable VIRGINIA GARCIA Attending Unavailable MICHELLE, HENOK Becerril Primary Care Unavailable ABRAMOVICJUAN MIGUEL Araiza Referring Unavailable MICHELLE, HENOK Becerril Primary Care Unavailable ABRAMOVICJUAN MIGUEL Araiza Attending Unavailable MICHELLE, HENOK Becerril Primary Care Unavailable JIMAMOVICJUAN MIGUEL Araiza Referring Unavailable MICHELLE, HENOK Becerril Primary Care Unavailable MICHELLE, HENOK Becerril Attending Unavailable MICHELLE, HENOK Becerril Primary Care Unavailable ABRAMOVICHJUAN MIGUEL Attending Unavailable ABRAMOVICJUAN MIGUEL Araiza Referring Unavailable MICHELLE, HENOK Becerril Primary Care Unavailable MICHELLE, HENOK Becerril Attending Unavailable MICHELLE, HENOK Becerril Primary Care Unavailable MICHELLE, HENOK Becerril Referring Unavailable MICHELLE, HENOK Becerril Primary Care Unavailable MICHELLE, HENOK Becerril Primary Care Unavailable ABRAMOVICJUAN MIGUEL Araiza Referring Unavailable MICHELLE, HENOK Becerril Attending Unavailable MICHELLE, HENOK Becerril Primary Care Unavailable MICHELLE, HENOK Becerril Primary Care Unavailable MICHELLE, HENOK Becerril Attending Unavailable MICHELLE, HENOK Becerril Primary Care Unavailable ABRAMOVICJUAN MIGUEL Araiza Referring Unavailable ABRAMOVICJUAN MIGUEL Araiza Referring Unavailable MICHELLE, HENOK Becerril Primary Care Unavailable Friend, Mohit Attending Un[facility] Unavailable Friend, Mohit Referring Unavailable [place], Henok Attending Unavailable [place], Henok Referring Unavailable [place], Henok Primary Care Unavailable Oniel Golden Admitting Unavailable Oniel Golden Consulting Unavailable Oniel Santana Attending Unavailable [place], Henok Primary Care Unavailable Jacoby Dunlap Consulting Unavailable Oniel Santana Consulting Unavailable Oniel Golden Referring Unavailable Friend, Mohit Attending Unavailable Oniel Golden Attending Unavailable [place], Henko Primary Care Unavailable Kancherantione Babatunde Referring Unavailable Cornell, Zachary Attending Unavailable FriendMohit Attending Unavailable Michelle, Henok Primary Care Unavailable Michelle, Henok Referring Unavailable Friend, Mohit Attending Unavailable Oniel Santana Referring Unavailable Michelle, Henok Primary Care Unavailable Jose Wu Attending Unavailable Oniel Golden Consulting Unavailable Oniel Golden Admitting Unavailable Michelle, Henok Primary Care Unavailable Keenan Celeste Consulting Unavailable Jose Wu Consulting Unavailable Oniel Golden Referring Unavailable FriendMohit Attending Unavailable Oniel Golden Consulting Unavailable Oniel Golden Admitting Unavailable Oniel Santana Attending Unavailable [place], Henok Primary Care Unavailable Jacoby Dunlap Consulting Unavailable Oniel Salamanca Consulting Unavailable Caron Patrick Consulting Unavailable Danielle Mariano Consulting Unavailable Elle Sandoval Consulting Unavailable Amanda MOODY, Janet Consulting Unavailable Diann Pulliam Consulting Unavailable Oniel Golden Consulting Unavailable Oniel Golden Admitting Unavailable [place], Henok Primary Care Unavailable Jose Wu Attending Unavailable Keenan Celeste Consulting Unavailable FriendMohit Referring Unavailable Friend, Mohit Attending Unavailable [place], Henok Primary Care Unavailable Cornell, Zachary Attending Unavailable Michelle, Henok Primary Care Unavailable Michelle, Henok Referring Unavailable Friend, Mohit Attending Unavailable [place], Henok Primary Care Unavailable [place], Henok Referring Unavailable Oniel Golden Attending Unavailable Allergies Allergy Classification Reported Allergen(s) Allergy Type Date of Onset Reaction(s) Facility (10 sources) Penicillins; Translations: [PENICILLINS] Drug Allergy 1 Anaphylaxis [facility] (20 sources) Tetracycline; Translations: [TETRACYCLINE] Drug Allergy 1 Rash [facility] (20 sources) Penicillins Drug Allergy 1 Anaphylaxis [facility] (12 sources) Penicillins Allergy to substance 3 Anaphylaxis [facility] (20 sources) traMADol; Translations: [TRAMADOL] Drug Allergy 4 Intolerance [facility] (20 sources) Penicillins Drug Allergy 1 Anaphylaxis [facility] (1 source) Penicillins Drug allergy (disorder) 5 [facility] (1 source) Tetracycline Drug Allergy 5 [facility] (1 source) traMADol Drug Allergy 5 [facility] Medications Current Medications Medication Drug Class(es) Dates Sig (Normalized) Sig (Original) azithromycin 250 mg oral tablet (15 sources) Macrolide Antimicrobial Start: 02-05-2025 End: 02-10-2025 take 2 tablets by mouth once daily, [...] 10/13/2024 10/28/2024 Active Blood Pressure Test Kit-Large (Villij ARM BP MONITOR) (20 sources) Start: 04-03-2023 [...] 20 mg/ml oral solution (3 sources) Uncompetitive B-izelim-Z-aspartate Receptor Antagonist, Sigma-1 Agonist Start: 02-14-2025 End: 02-19-2025 take 10 mL by mouth every four hours as needed guaiFENesin-dextromethorphan (ROBITUSSIN DM) 100-10 mg/5 mL syrup Take 10 mL by mouth every 4 hours as needed for cough for up to 5 days. 200 mL 02/14/2025 02/19/2025 Active dextromethorphan hydrobromide 3 mg/ml / promethazine hydrochloride 1.25 mg/ml oral solution (20 sources) Phenothiazine, Uncompetitive I-zbpasz-L-aspartate Receptor Antagonist, Sigma-1 Agonist Start: 02-24-2025 take [...] as needed. 120 mL 03/04/2024 01/20/2025 Discontinued insulin isophane, human 70 unt/ml / insulin, regular, human 30 unt/ml injectable suspension (20 sources) Insulin Start: 06-15-2025 Insulin Nph An d Regular Human (Novolin 70/30 U-100 Insulin) 100 unit/mL (70-30) suspension Active 10 U SC June 15, 2025 12:00am Complies with drug therapy Start: 02-24-2025 End: 05-31-2026 inject 10 [IU] by subcutaneous injection twice daily at mealtime insulin NPH-insulin regular 70/30 (NOVOLIN 70/30 U-100 INSULIN) 100 unit/mL suspension Indications: Type 2 diabetes mellitus with hyperglycemia, with long-term current use of insulin (HCC) Inject 10 Units subcutaneously two times a day with meals. 20 mL 3 05/31/2025 05/31/2026 Active Start: 02-15-2025 End: 03-17-2025 insulin NPH-insulin [...] Dep? Yes 200 Each 5 01/23/2025 Active losartan potassium 100 mg oral tablet (20 sources) Angiotensin 2 Receptor Jefferson Start: 10-26-2022 End: 03-30-2026 take 1 tablet by mouth once daily Losartan 100 mg tablet Active 100 mg PO DAILY March 07, 2023 12:00am bp Complies with drug therapy Start: 10-01-2022 End: 10-01-2023 take 1 tablet [...] before meals. Take 2 tablets by mo [facility] two times a day with meals. metoprolol tartrate 50 mg oral tablet (20 sources) beta-Adrenergic Jefferson Start: 11-21-2023 take 1 tablet by mouth twice daily Metoprolol Tartrate 50 mg tablet Active 50 mg PO TWICE A DAY November 21, 2023 10:23am heart Complies with drug therapy Start: 04-15-2023 End: 12-22-2025 take 1.5 tablets [...] HOURS NEEDED as needed for Nausea 30 0 February 25, 2024 12:00am April 28, 2024 3:00pm pantoprazole 40 mg delayed release oral tablet (20 sources) Proton Pump Inhibitor Start: 11-04-2024 End: 06-09-2026 take 1 tablet by mouth twice daily before mealtime, then take 4 tablets by mouth in the evening pantoprazole DR (PROTONIX) 40 mg tablet Take 1 tablet by mouth two times a day before meals at 6 am and 4 pm. 180 tablet 3 06/09/2025 06/09/2026 Active Start: 04-19-2021 End: 03-20-2025 take 1 tablet by mouth once daily Pantoprazole 40 mg tablet,delayed release (DR/EC) Active 40 mg PO DAILY 90 August 28, 2021 10:09am gerd Complies with drug therapy Comment on above: Take 40 mg by mouth once daily. Take 1 tablet by rina th once daily. phenylephrine hydrochloride 25 mg/ml ophthalmic [...] times a day. 10 mL 5 06/04/2024 Active proparacaine hydrochloride 5 mg/ml ophthalmic solution [...] Dihydropyridine Calcium Channel Jefferson Start: 11-21-2023 End: 06-15-2025 take 1 tablet by mouth once daily Amlodipine 10 mg tablet Discontinued 10 mg PO DAILY 90 November 10, 2024 12:49pm June 15, 2025 3:50pm bp Start: 08-20-2021 End: 10-01-2022 take 1 tablet [...] mouth twice daily Apixaban 5 mg tablet Discontinued 5 mg PO TWICE A DAY 180 April 28, 2024 3:26pm June 15, 2025 2:25pm blood thinner Start: 05-04-2021 End: 05-01-2024 take 1 tablet by mouth twice daily Apixaban (Eliquis) 2.5 mg tablet Discontinued 2.5 mg PO TWICE A DAY 180 March 20, 2024 1:18pm April 28, 2024 3:27pm Comment on above: Take 2.5 mg by mouth twice daily. Take 1 tablet by rina th twice daily. Take 1 tablet by rina th two times a day. aspirin 81 mg delayed release oral tablet (14 sources) Platelet Aggregation Inhibitor, Nonsteroidal Anti-inflammatory Drug Start: 01-24-20 End: 02-02-20 take 1 tablet by mouth once daily aspirin, enteric coated (ASPIRIN, ENTERIC COATED) 81 mg EC tablet Take 1 tablet by mouth once daily for 3 doses. 3 tablet 01/23/2025 02/01/2025 Discontinued atorvastatin 20 mg oral tablet (20 sources) HMG-CoA Reductase Inhibitor Start: 10-01-20 End: 03-30-20 take 1 tablet by mouth at bedtime Atorvastatin 20 mg tablet Discontinued 20 mg PO AT BEDTIME March 07, 2023 12:00am June 15, 2025 3:50pm hld Start: 04-20-2021 End: 10-01-2022 take 1 tablet by mouth once daily Atorvastatin 40 mg tablet Discontinued 40 mg PO DAILY 90 May 26, 2021 3:08pm February 15, 2022 10:19am Comment on above: Take 40 mg by mouth once daily. Take 1 tablet by rina th once daily. baclofen 5 mg oral tablet (12 sources) gamma-Aminobutyri c Acid-ergic Agonist Start: 02-15-2022 End: 03-07-2023 take [...] lozenge Active 1 LOZENGE MUCOUS MEM Q2H 16 Krystal 30th, 2024 12:00am cloNIDine hydrochloride 0.1 mg oral tablet (12 sources) Central alpha-2 Adrenergic Agonist Start: 08-20-2021 [...] Chemotherapy Drug: Use appropriate PPE. Antineoplastic Irritant. glucose 4000 mg chewable tablet (20 sources) Start: 01-23-2025 End: 06-09-2025 glucose 4 gram chewable tablet Take 4 tablets by mouth as needed for low blood sugar. 10 tablet 5 01/23/2025 06/09/2025 Discontinued 12 hr guaiFENesin 600 mg extended release [...] Comment on above: Take 1 capsule by [facility] once daily. hypromellose 0.003 mg/mg ophthalmic gel [...] in the CT contrast administration guidelines link. levoFLOXacin 500 mg oral tablet (15 sources) Quinolone Antimicrobial Start: 06-02-20 End: 06-15-20 take 1 tablet by mouth once daily Levofloxacin 500 mg tablet Discontinued 500 mg PO DAILY 7 0 June 02, 2025 12:00am June 15, 2025 2:19pm Start: 02-14-2025 End: 02-17-2025 take 1 tablet [...] for 10 days. 10 tablet 03/04/2024 03/14/2024 lisinopril 5 mg oral tablet (2 sources) Angiotensin Converting Enzyme Inhibitor Start: 08-30-2022 End: 11-28-2022 take 1 tablet by mouth once daily lisinopril (ZESTRIL, PRINIVIL) 5 mg tablet Take 1 tablet by mouth once daily. 30 tablet 2 08/30/2022 09/17/2022 Discontinued Comment on above: [facility]. methylsulfonylmethane 1000 mg oral capsule (20 sources) take 1 capsule by mouth once daily Methylsulfonylmethane (MSM) 1,000 mg cap Take 1 capsule by mouth once daily. Suspended Comment on above: Take 1 capsule by mo [facility] once daily. metroNIDAZOLE 500 mg oral tablet (5 sources) Nitroimidazole Antimicrobial Start: 06-02-2025 End: 06-15-2025 take 1 tablet by mouth three times daily Metronidazole 500 mg tablet Discontinued 500 mg PO THREE TIMES A DAY 21 0 June 02, 2025 12:00am June 15, 2025 2:19pm Multivitamin tablet (6 sources) Start: 06-19-2021 End: 05-30-2025 Multivitamin tablet Discontinued 1 {tbl} PO DAILY [...] Irritant with Vesicant Potential. polyethylene glycol [id number] [id number] mg / potassium chloride 2970 mg / sodium bicarbonate 6740 mg / sodium chloride 5860 mg / sodium sulfate 01848 mg powder for oral solution (1 source) [...] to printed prep instructions from your provider. microencapsulated potassium chloride 20 meq extended release oral tablet (3 sources) Start: 06-02-2025 End: 06-15-2025 take 1 tablet by mouth twice daily at mealtime Potassium Chloride 20 mEq Tablet,Er Particles/Crystals Discontinued 20 meq PO TWICE DAILY WITH MEALS 30 0 June 02, 2025 12:00am June 15, 2025 2:20pm predniSONE 50 mg oral tablet (7 sources) Start: 02-25-2024 End: 07-09-2024 take 1 tablet by mouth once daily Prednisone 50 mg tablet Discontinued 50 mg PO DAILY 5 0 February 25, 2024 12:00am July 09, 2024 11:35am traMADol hydrochloride 50 mg oral tablet (6 sources) Opioid Agonist Start: 06-25-2024 End: 01-09-2025 take 1 tablet by mouth every six hours as needed for pain Tramadol 50 mg tablet Discontinued 50 mg PO EVERY 6 HOURS as needed for pain 12 3 0 June 25, 2024 12:00am January 09, 2025 9:01pm Problems Active Problems Problem Classification Problem Date Documented Da te Episodic/Chronic Acute cerebrovascular disease (20 sources) Cerebrovascular accident; [...] Episodic Cancer of other GI organs; peritoneum (4 sources) History of malignant 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; Translations: [...] specified as acute or chronic] 03-04-2024 Episodic Complication of device; implant or graft (2 sources) Obstruction of biliary stent; Translations: [Other mechanical complication of bile duct prosthesis, subsequent encounter] Onset: 5 06-09-2025 Episodic Deficiency and other anemia (1 source) Other pancytopenia; Translations: [Pancytopenia (HCC)] Onset: 5 Chronic Deficiency and other anemia (1 source) Anemia; Translations: [Anemia, unspecified] 05-04-2024 Episodic Diabetes mellitus with complications (20 sources) Hyperglycemia due to type 2 diabetes mellitus; Translations: [Type 2 diabetes mellitus with hyperglycemia] Onset: 5 01-18-2025 Chronic Diabetes mellitus without complication (20 sources) Type 2 diabetes mellitus without complication; Translations: [Type 2 diabetes mellitus without complications] Onset: 1 Resolved: 5 Chronic Diseases of white blood cells (10 sources) Leukocytosis; Translations: [Elevated white blood cell count, unspecified] Onset: 5 03-05-2024 Chronic Disorders of lipid metabolism (20 sources) Hyperlipidemia; Translations: [Hyperlipidemia, unspecified] Onset: 3 06-19-2021 Chronic E Codes: Natural/environment (8 sources) Insect bite - wound; Translations: [Bitten or stung by nonvenomous insect and other nonvenomous arthropods, initial encounter] 08-07-2023 Episodic Esophageal disorders (20 sources) Gastroesophageal reflux disease without esophagitis; Translations: [Gastro-esophageal reflux disease without esophagitis] Onset: 1 09-14-2021 Chronic Essential hypertension (20 sources) Essential hypertension; Translations: [Essential (primary) hypertension] Onset: 1 Chronic Fever of unknown origin (4 sources) Fever; Translations: [Fever, unspecified] 05-31-2025 Episodic Fluid and electrolyte disorders (20 sources) Hyperkalemia; Translations: [Hyperkalemia] Onset: 5 03-05-2024 Episodic Gastrointestinal hemorrhage (13 sources) Black feces symptom; Translations: [Melena] 08-08-2021 Episodic Mycoses (20 sources) Candidiasis of vagina; Translations: [Candidiasis of vagina] Onset: 3 Resolved: 3 08-20-2021 Episodic Nonspecific chest pain (20 sources) Chest pain; Translations: [Chest pain, unspecified] Onset: 3 Resolved: 4 03-07-2023 Episodic Other aftercare (20 sources) Long-term current use of anticoagulant; Translations: [correction (current) use of anticoagulants] Onset: 3 04-08-2023 Episodic Other and ill-defined heart disease (13 sources) Mass of thoracic structure; Translations: [Other ill-defined heart diseases] 02-28-2022 Chronic Other and ill-defined heart disease (6 sources) Other ill-defined heart diseases; Translations: [Other ill-defined heart diseases] Onset: 5 03-07-2023 Chronic Other circulatory disease (12 sources) History of transient ischemic attack; Translations: [Personal history of transient ischemic attack (TIA), 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 deficits] 02-15-2022 Episodic Other connective tissue disease (6 sources) Muscle pain; Translations: [Myalgia, unspecified site] [...] Other hereditary and degenerative nervous system conditions (12 sources) Impaired cognition; Translations: [Mild cognitive impairment, so stated] 06-19-2021 Chronic Other hereditary and degenerative nervous system conditions (1 source) Mild cognitive impairment, so stated; Translations: [Mild cognitive impairment, so stated] 06-18-2023 Chronic Other liver diseases (10 sources) High lipase level in serum; Translations: [Abnormal levels of other serum enzymes] 11-12-2024 Episodic Other liver diseases (20 sources) Jaundice; Translations: [Unspecified jaundice] Onset: 5 Resolved: 5 01-15-2025 Episodic Other liver diseases (12 sources) Enzyme level - finding; Translations: [Elevated [...] Chronic Other nutritional; endocrine; and metabolic disorders (12 sources) Hyperbilirubinemia; Translations: [Other disorders of bilirubin metabolism] 01-10-2025 Chronic Other nutritional; endocrine; and metabolic disorders (1 source) Other disorders of bilirubin metabolism; Translations: [Other disorders of bilirubin metabolism] Onset: Chronic Other nutritional; endocrine; and metabolic disorders (1 source) Weight loss; Translations: [Abnormal weight loss] 03-04-2024 Episodic Other nutritional; endocrine; and metabolic disorders (8 sources) Body mass index 25-29 - overweight; Translations: [Overweight] 01-10-2025 Episodic Other screening for suspected conditions (not mental disorders or infectious disease) (4 sources) Imaging of thorax abnormal; Translations: [Abnormal findings on diagnostic imaging of other specified body structures] Chronic Other upper respiratory infections (2 sources) Sore throat symptom; Translations: [Acute pharyngitis, unspecified] 02-19-2024 Episodic Residual codes; unclassified (4 sources) Past history of procedure; Translations: [Other specified postprocedural states] 05-31-2025 Episodic Residual codes; unclassified (8 sources) Not for resuscitation; Translations: [Do not resuscitate] 05-31-2025 Episodic Screening and history of mental health and substance abuse codes (2 sources) Encounter for screening examination for other mental health and behavioral disorders; Translations: [Encounter for screening for depression] Onset: 5 Episodic Sprains and strains (6 sources) Strain of neck muscle; Translations: [Strain of muscle, fascia and tendon at neck level, initial encounter] 07-03-2024 Episodic Transient cerebral ischemia (13 sources) Transient cerebral ischemia; Translations: [Transient cerebral ischemic attack, unspecified] Onset: 1 08-08-2021 Chronic Unclassified (1 source) Established Patient Onset: 5 Unclassified (2 sources) Chronic atrial fibrillation, unspecified; Translations: [Chronic atrial fibrillation, unspecified] Onset: 5 Unclassified (1 source) Elevation of levels of liver transaminase levels; Translations: [Elevation of levels of liver transaminase levels] Onset: 5 Past or Other Problems Problem Classification Problem Date Documented Da te Episodic/Chronic Abdominal pain (8 sources) Pelvic and perineal pain; Translations: [Pelvic and perineal pain] Onset: 11-12-2024 Episodic Acute bronchitis (2 sources) Acute bronchitis; Translations: [Acute bronchitis, unspecified] Onset: 02-10-2025 10-13-2024 Episodic Cancer of uterus (20 sources) History of malignant neoplasm of uterine body; Translations: [Personal history of malignant neoplasm of other parts of uterus] Onset: 09-14-2021 09-14-2021 Episodic Deficiency and other anemia (1 source) Anemia, unspecified; Translations: [Anemia, unspecified type] Onset: 01-14-2025 Episodic Diabetes mellitus without complication (20 sources) Hyperglycemia; Translations: [Hyperglycemia, unspecified] Onset: 01-18-2025 Resolved: 03-30-2025 01-18-2025 Episodic Malaise and fatigue (1 source) Weakness; Translations: [Weakness] Onset: 02-10-2025 Episodic Other aftercare (2 sources) correction (current) use of insulin; Translations: [Type 2 diabetes mellitus with hyperglycemia, with long-term current use of insulin (HCC)] Onset: 01-18-2025 Episodic Other aftercare (1 source) correction (current) use of anticoagulants; Translations: [correction current use of anticoagulant therapy] Onset: 05-20-2023 Episodic Other and unspecified benign neoplasm (20 sources) Atrial myxoma ; Translations: [Benign neoplasm of heart] Onset: 09-14-2021 Episodic Other and unspecified benign neoplasm (2 sources) Benign neoplasm of heart; Translations: [Atrial myxoma (HCC)] Onset: 05-20-2023 Episodic Other circulatory disease (20 sources) History of cerebrovascular accident; Translations: [Personal history of transient ischemic attack (TIA), 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 deficits] Onset: 09-14-2021 Episodic Other circulatory disease (2 sources) Personal history of transient ischemic attack (TIA), 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 deficits; Translations: [Personal history of transient ischemic attack (TIA), 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 deficits] Onset: 09-14-2021 06-18-2023 Episodic Other gastrointestinal disorders (2 sources) Dysphagia, [...] Hemoptysis; Translations: [Hemoptysis] Onset: 11-05-2024 Episodic Other nervous system disorders (20 sources) Impaired cognition; Translations: [Other symptoms and signs involving cognitive functions and awareness] Onset: 05-20-2023 05-20-2023 Episodic Other nutritional; endocrine; and metabolic disorders (1 source) Overweight; Translations: [Overweight] Onset: 02-18-2025 Episodic Pancreatic disorders (not diabetes) (20 sources) Mass of pancreas; Translations: [Other specified diseases of pancreas] Onset: 01-14-2025 Resolved: 03-30-2025 01-15-2025 Episodic Pneumonia (except that caused by tuberculosis or sexually transmitted disease) (20 sources) Pneumonia; Translations: [Pneumonia, unspecified organism] Onset: 02-11-2025 Resolved: 03-30-2025 02-11-2025 Episodic Residual codes; unclassified (1 source) Acquired absence of both cervix and uterus; Translations: [Acquired absence of both cervix and uterus] Onset: 02-18-2025 Episodic Spondylosis; intervertebral disc disorders; other back problems (20 sources) Neck pain; Translations: [Cervicalgia] Onset: 05-20-2023 Resolved: 05-20-2023 02-15-2022 Episodic Viral infection (20 sources) Respiratory syncytial virus infection; Translations: [Other specified viral diseases] Onset: 02-12-2025 Resolved: 03-30-2025 02-12-2025 Episodic Results Test Name Value Interpretation Reference Range Facility Abdomen/Pelvis WITH Contrast on 08-19-2025 Abdomen/Pelvis WITH Contrast [facility] [address] [place], [place] [address] Abdomen/Pelvis WITH Contrast MR#: [id number] Acct: [id number] Name: TELMA TINEO Rep #: [id number] : 1940 F 85 From: Raj farley MD PCP: Dr. Henok Martinez MD Status: REG CLI Study: Abdomen/Pelvis WITH Contrast Date of Exam: Exam# [id number] Ordering Dr: Mohit Brown DO PROCEDURE: ABDOMEN/PELVIS WITH CONTRAST 08/19/2025 REASON FOR EXAM: PANCREATIC CANCER TECHNIQUE: Procedure Code: CTABDPELW Modality: CT Procedure: ABDOMEN/PELVIS WITH CONTRAST Coronal and Sagittal reconstruction series were provided. CONTRAST: Isovue-300 VOLUME: 95 mL One or more dose reduction techniques were used (e.g., Automated exposure control, adjustment of the mA and/or kV according to patient size, use of iterative reconstruction technique. RADIATION DOSE SUMMARY: CTDlvol: 11.42 mGy DLP: 597.52 mGycm COMPARISON: Prior study dated May 30, 2025. FINDINGS: Lung bases: The lung bases are unremarkable. Liver: Pneumobilia most likely due to the biliary stent placement. Gallbladder: The gallbladder is mildly distended. There is thickening of the gallbladder wall. Low-level density are seen within the gallbladder lumen suggestive of possible sludge. A stent is seen within the common bile duct down to the level of the ampulla of Vater. Spleen: Normal size. Pancreas: There is diffuse atrophy of the pancreas with the dilated beaded appearance of the pancreatic duct. Persistent hypodense soft tissue density seen in the region of the head and uncinate process of the pancreas although this has improved as compared to prior study. Adrenals: Unremarkable Kidneys: Normal renal sizes. No hydronephrosis. Bladder: Unremarkable Reproductive Organs: Prior hysterectomy. Adnexal regions are unremarkable. Bowel: No bowel obstruction. Appendix: Status post appendectomy. Lymph nodes: No suspicious lymph node enlargement. Vasculature: Mild diffuse atherosclerotic calcifications are noted. Peritoneum / Retroperitoneum: No evidence of retroperitoneal lymphadenopathy. Bones: Degenerative changes of the spine. CT/Abdomen/Pelvis WITH Contrast IMPRESSION: Biliary stent is seen with evidence of pneumobilia. Distended gallbladder with thickening of the gallbladder wall and possible sludge within the gallbladder lumen. Persistent soft tissue prominence in the region of the head of the pancreas with dilatation of the pancreatic duct as well as diffuse pancreatic atrophy. Reading Location: [id number] CC: Dr. Henok Martinez MD; Mohit Brown, Program Engagement Director: Signed Normal [facility] CNPNon 08-16-2025 CNPN Normal [facility] CNPNon 08-10-2025 CNPN Normal [facility] CA 19-9 Serial Monitoron CA 19-9 GRAPH TNP Normal [facility] Comment on above: Result Comment: SEE SCANNED GRAPH Performed By: #### L 501.6710, L3100.5017, L500.4050, L100.0100, L504.2610, L101.9900 #### [facility] [address] [place], [address] CBC W/Diff, Automatedon - Absolute Lymph 1.73 X10 3/uL Normal 0.83-4.51 [facility] Comment on above: Performed By: #### L 501.6710, L3100.5017, L500.4050, L100.0100, L504.2610, L101.9900 #### [facility] [address] [place], [address] Absolute Neut 6.5 X10 3/uL Normal 2.0-7.7 [facility] Comment on above: Performed By: #### L 501.6710, L3100.5017, L500.4050, L100.0100, L504.2610, L101.9900 #### [facility] [address] [place], [address] Basophils/100 WBC (Bld) 0.4 % Normal 0-1 [facility] Comment on above: Performed By: #### L 501.6710, L3100.5017, L500.4050, L100.0100, L504.2610, L101.9900 #### [facility] [address] [place], [address] Eosinophils/100 WBC (Bld) 1.1 % Normal 0-5 [facility] Comment on above: Performed By: #### L 501.6710, L3100.5017, L500.4050, L100.0100, L504.2610, L101.9900 #### [facility] [address] [place], [address] Erythrocyte distribution width (RBC) [Ratio] 14.9 % High 11.6-14.6 [facility] Comment on above: Performed By: #### L 501.6710, L3100.5017, L500.4050, L100.0100, L504.2610, L101.9900 #### [facility] [address] [place], [address] Hematocrit (Bld) [Volume fraction] 37.7 % Normal 37-47 [facility] Comment on above: Performed By: #### L 501.6710, L3100.5017, L500.4050, L100.0100, L504.2610, L101.9900 #### [facility] [address] [place], [address] Hemoglobin (Bld) [Mass/Vol] 12.3 g/dL Normal 12.0-15.0 [facility] Comment on above: Performed By: #### L 501.6710, L3100.5017, L500.4050, L100.0100, L504.2610, L101.9900 #### [facility] [address] [place], [address] IG% 0.300 Normal 0.0-0.9 [facility] Comment on above: Result Comment: IG% - Immature Granulocytes (promyelocytes, myelocytes and metamyelocytes) > 1% indicates that a LEFT SHIFT is Present. Performed By: #### L 501.6710, L3100.5017, L500.4050, L100.0100, L504.2610, L101.9900 #### [facility] [address] [place], [address] Lymphocytes/100 WBC (Bld) 19.1 % Normal 19-41 [facility] Comment on above: Performed By: #### L 501.6710, L3100.5017, L500.4050, L100.0100, L504.2610, L101.9900 #### [facility] [address] [place], [address] MCH (RBC) [Entitic mass] 27.8 pg Normal 27.0-32.0 [facility] Comment on above: Performed By: #### L 501.6710, L3100.5017, L500.4050, L100.0100, L504.2610, L101.9900 #### [facility] [address] [place], [address] MCHC (RBC) [Mass/Vol] 32.6 g/dL Normal 32-36 [facility] Comment on above: Performed By: #### L 501.6710, L3100.5017, L500.4050, L100.0100, L504.2610, L101.9900 #### [facility] [address] [place], [address] MCV (RBC) [Entitic vol] 85.1 fL Normal 81-99 [facility] Comment on above: Performed By: #### L 501.6710, L3100.5017, L500.4050, L100.0100, L504.2610, L101.9900 #### [facility] [address] [place], [address] Monocytes/100 WBC (Bld) 7.6 % Normal 0-10 [facility] Comment on above: Performed By: #### L 501.6710, L3100.5017, L500.4050, L100.0100, L504.2610, L101.9900 #### [facility] [address] [place], [address] Neutrophils/100 WBC (Bld) 71.5 % High 47-70 [facility] Comment on above: Performed By: #### L 501.6710, L3100.5017, L500.4050, L100.0100, L504.2610, L101.9900 #### [facility] [address] [place], [address] Nucleated RBC (Bld) [#/Vol] 0 10*3/uL Normal 0-5 [facility] Comment on above: Performed By: #### L 501.6710, L3100.5017, L500.4050, L100.0100, L504.2610, L101.9900 #### [facility] [address] [place], [address] Platelet mean volume (Bld) [Entitic vol] 12.6 fL High 6.2-12.0 [facility] Comment on above: Performed By: #### L 501.6710, L3100.5017, L500.4050, L100.0100, L504.2610, L101.9900 #### [facility] [address] [place], [address] Platelets (Bld) [#/Vol] 226 10*3/uL Normal 150-450 [facility] Comment on above: Performed By: #### L 501.6710, L3100.5017, L500.4050, L100.0100, L504.2610, L101.9900 #### [facility] [address] [place], [address] RBC (Bld) [#/Vol] 4.43 10*6/uL Normal 4.2-5.4 [facility] Comment on above: Performed By: #### L 501.6710, L3100.5017, L500.4050, L100.0100, L504.2610, L101.9900 #### [facility] [address] [place], [address] RDW SD 45.9 fl High 35.1-43.9 [facility] Comment on above: Performed By: #### L 501.6710, L3100.5017, L500.4050, L100.0100, L504.2610, L101.9900 #### [facility] [address] [place], [address] WBC (Bld) [#/Vol] 9.0 10*3/uL Normal 4.4-11.0 [facility] Comment on above: Performed By: #### L 501.6710, L3100.5017, L500.4050, L100.0100, L504.2610, L101.9900 #### [facility] [address] [place], [address] CRPon 08-03-2025 C-REACTIVE PROT < 3.00 Normal 0.0-3.0 [facility] Comment on above: Performed By: #### L 501.6710, L3100.5017, L500.4050, L100.0100, L504.2610, L101.9900 #### [facility] [address] [place], [address] Comprehensive Metabolic Prof ilon 08-03-2025 Albumin [Mass/Vol] 4.2 g/dL Normal 3.4-4.8 [facility] Comment on above: Performed By: #### L 501.6710, L3100.5017, L500.4050, L100.0100, L504.2610, L101.9900 #### [facility] [address] [place], [address] Albumin/Globulin [Mass ratio] 1.2 {ratio} Normal 0.9-2.4 [facility] Comment on above: Performed By: #### L 501.6710, L3100.5017, L500.4050, L100.0100, L504.2610, L101.9900 #### [facility] [address] [place], [address] ALK PHOS 112 U/L High 35-104 [facility] Comment on above: Performed By: #### L 501.6710, L3100.5017, L500.4050, L100.0100, L504.2610, L101.9900 #### [facility] [address] [place], [address] ALT [Catalytic activity/Vol] 18 U/L Normal <=34 [facility] Comment on above: Performed By: #### L 501.6710, L3100.5017, L500.4050, L100.0100, L504.2610, L101.9900 #### [facility] [address] [place], [address] AST [Catalytic activity/Vol] 27 U/L Normal <=31 [facility] Comment on above: Performed By: #### L 501.6710, L3100.5017, L500.4050, L100.0100, L504.2610, L101.9900 #### [facility] [address] [place], [address] Bilirubin [Mass/Vol] 0.56 mg/dL Normal 0.00-1.30 [facility] Comment on above: Performed By: #### L 501.6710, L3100.5017, L500.4050, L100.0100, L504.2610, L101.9900 #### [facility] [address] [place], [address] BUN/CRE 16.3 RATIO Normal 10-20 [facility] Comment on above: Performed By: #### L 501.6710, L3100.5017, L500.4050, L100.0100, L504.2610, L101.9900 #### [facility] [address] [place], [address] Calcium [Mass/Vol] 9.9 mg/dL Normal 7.6-11.0 [facility] Comment on above: Performed By: #### L 501.6710, L3100.5017, L500.4050, L100.0100, L504.2610, L101.9900 #### [facility] [address] [place], [address] Chloride [Moles/Vol] 100 mmol/L Normal 98-108 [facility] Comment on above: Performed By: #### L 501.6710, L3100.5017, L500.4050, L100.0100, L504.2610, L101.9900 #### [facility] [address] [place], [address] CO2 [Moles/Vol] 19.8 mmol/L Low 21.0-32.0 [facility] Comment on above: Performed By: #### L 501.6710, L3100.5017, L500.4050, L100.0100, L504.2610, L101.9900 #### [facility] [address] [place], [address] Creatinine [Mass/Vol] 0.78 mg/dL Normal 0.70-1.20 [facility] Comment on above: Performed By: #### L 501.6710, L3100.5017, L500.4050, L100.0100, L504.2610, L101.9900 #### [facility] [address] [place], [address] GAP 13 Normal 5-15 [facility] Comment on above: Performed By: #### L 501.6710, L3100.5017, L500.4050, L100.0100, L504.2610, L101.9900 #### [facility] [address] [place], [address] GFR/1.73 sq M.predicted among non-blacks MDRD (S/P/Bld) [Vol rate/Area] 75 mL/min/{1.73_m2} Normal >60 [facility] Comment on above: Result Comment: mL/m in/1.73m2 CKD-EPI Creatinine Equation (2020) Performed By: #### L 501.6710, L3100.5017, L500.4050, L100.0100, L504.2610, L101.9900 #### [facility] [address] [place], [address] Globulin (S) [Mass/Vol] 3.6 g/dL Normal 2.2-4.2 [facility] Comment on above: Performed By: #### L 501.6710, L3100.5017, L500.4050, L100.0100, L504.2610, L101.9900 #### [facility] [address] [place], [address] Glucose [Mass/Vol] 247 mg/dL High 70-99 [facility] Comment on above: Performed By: #### L 501.6710, L3100.5017, L500.4050, L100.0100, L504.2610, L101.9900 #### [facility] [address] [place], [address] Potassium [Moles/Vol] 4.5 mmol/L Normal 3.3-5.1 [facility] Comment on above: Performed By: #### L 501.6710, L3100.5017, L500.4050, L100.0100, L504.2610, L101.9900 #### [facility] [address] [place], [address] Sodium [Moles/Vol] 133 mmol/L Normal 133-145 [facility] Comment on above: Performed By: #### L 501.6710, L3100.5017, L500.4050, L100.0100, L504.2610, L101.9900 #### [facility] [address] [place], [address] T PROT 7.9 g/dL Normal 5.9-8.4 [facility] Comment on above: Performed By: #### L 501.6710, L3100.5017, L500.4050, L100.0100, L504.2610, L101.9900 #### [facility] [address] [place], [address] Urea nitrogen [Mass/Vol] 13 mg/dL Normal 4-19 [facility] Comment on above: Performed By: #### L 501.6710, L3100.5017, L500.4050, L100.0100, L504.2610, L101.9900 #### [facility] [address] [place], [address] Erythrocyte Sed Rateon 08-03 SED RATE 34 mm/hr High 0-30 [facility] Comment on above: Performed By: #### L 501.6710, L3100.5017, L500.4050, L100.0100, L504.2610, L101.9900 #### [facility] [address] [place], [address] Gastroenterology Visit Repor ton 08-03-2025 Gastroenterology Visit Report [facility] [address] [place] [address] OFFICE VISIT Date of Service: 08/03/25 MR#: [id number] Acct: [id number] Name: TELMA TINEO Rep #: [id number] : 1940 Provider: Mohit Brown DO Age/Sex: 85/F [place] [facility] Status: Signed Intake Vital Signs 06/15/25 14:15 Height 5 ft Weight: 149 lb BMI 29.0 BP 108/66 Blood Pressure Location Lt brachial Position Sitting Respiration 16 Pulse 67 Pulse Source Monitor Intake Visit Reasons: Endo Retro CholangioPancreatography FU Chief Complaint: Allergies Penicillins Allergy (Severe, Verified 06/15/25 14:19) Anaphylaxis tetracycline Allergy (Severe, Verified 06/15/25 14:19) anaphylaxis tramadol (From [facility]) Adverse Reaction (Severe, Verified 06/15/25 14:19) syncope Medications ???Medication ???Instructions ???Recorded ???Confirmed ???Type pantoprazole 40 mg tablet,delayed 40 mg PO DAILY gerd #90 tabs 11/0 11/1708/03/25 Rx release losartan 100 mg tablet 100 mg PO DAILY bp 03/07/23 History metoprolol tartrate 50 mg tablet 50 mg PO BID heart 11/21/23 History apixaban 5 mg tablet 5 mg PO BID blood thinner #180 tab s 06/15/25 08/03/25 Rx insulin human U-100 NPH-regulr 10 unit subcut 06/15/25 08/03/25 H istory 70-30 mix 100 unit/mL subcutaneous susp (Novolin 70/30 U-100 Insulin) insulin syringe-needle U-100 0.3 #10 ea 06/15/25 08/03/25 History mL 31 gauge x 5/16 Have you fallen in the past year?: No PFSH Medical History Type 2 diabetes mellitus with hyperglycemia Transaminitis Hyperbilirubinemia Pancreatic mass History of uterine cancer Overweight (BMI 25.0-29.9) Jaundice Elevated lipase Mass of head of [...] never substance use type: does not use HPI HPI Chief Complaint: Details: TELMA TINEO, is a 85 F who presents to the office today for hospital follow up. [facility] hospitalization 8.3.25 - 8.6.25 general illness - GI consulted for jaundice and elevated bilirubin chest/abd/pelvis CT 8.3.25 Left axillary adenopathy, nonspecific. Possibly inflammatory in etiology. No acute chest injury is noted. Treated pancreatic head tumor is not well seen and may be decreased in size indicating response to treatment. Biliary stent in good position. No abdominopelvic injury noted. ERCP 8.5.25 A single segmental biliary stricture was found in the lower third of the main bile duct and middle third of the main bile duct. The stricture was malignant appearing. The entire biliary tree was severely dilated, with a mass causing an obstruction. Choledocholithiasis was found. Complete removal was accomplished by biliary sphincterotomy and balloon extraction. A biliary sphincterotomy was performed. The biliary tree was swept and pus and debris were found. One stent was removed from the biliary tree. One covered metal stent was placed into the common bile duct. OV 10.7.25 pt denies current GI symptoms of concern. Reports intermittent abdominal tenderness and lack of appetite. Is here to review results. She reports a decrease in her jaundiced appearance since the recent endoscopic retrograde cholangiopancreatography (ERCP) and metal stent placement. She denies abdominal pain but reports fatigue and poor appetite, which were also issues during her brief course of chemotherapy. She is managing her symptoms with support from family and a palliative care team. ROS Const Constitutional: No fatigue, fever(s) or weight change ENT ENT: No difficulty swallowing Gastro GI: No abdominal pain, belching, bloating, change in bowel habits, change in stool character, coffee ground emesis, constipation, cramping, diarrhea, heartburn, difficulty swallowing, feeling full early, exce (more content not included)... Normal [facility] LDHon 08-03-2025 LDH 178 U/L Normal 84-246 [facility] Comment on above: Order Comment: 1 Performed By: #### L 501.6710, L3100.5017, L500.4050, L100.0100, L504.2610, L101.9900 #### [facility] [address] [place], [place], [address] Basic metabolic 2000 panelon 07-27-2025 Anion gap [Moles/Vol] 11 mmol/L Normal 8-15 [facility] Comment on above: Order Comment: Speci men Type: BLOOD SPECIMENOrdering Facility: [facility] Address: [address] [place] [address] Performed By: #### 2 4321-2 ####[facility] LABIA [id number] [place] [address] [place] Calcium [Mass/Vol] 9.4 mg/dL Normal 8.5-10.2 [facility] Comment on above: Order Comment: Speci men Type: BLOOD SPECIMENOrdering Facility: [facility] Address: [address] [place] [address] Performed By: #### 2 4321-2 ####[facility] LABCLIA [id number] [place] [address] [place] Chloride [Moles/Vol] 100 mmol/L Normal 98-107 [facility] Comment on above: Order Comment: Speci men Type: BLOOD SPECIMENOrdering Facility: [facility] Address: [address] [place] [address] Performed By: #### 2 4321-2 ####[facility] LABCLIA [id number] [place] [id number] [place] CO2 [Moles/Vol] 22 mmol/L Normal 22-30 [facility] Comment on above: Order Comment: Speci men Type: BLOOD SPECIMENOrdering Facility: [facility] Address: [address] [place] [address] Performed By: #### 2 4321-2 ####[facility] LABCLIA [id number] [place] [id number] [place] Creatinine [Mass/Vol] 0.73 mg/dL Normal 0.58-0.96 [facility] Comment on above: Order Comment: Speci men Type: BLOOD SPECIMENOrdering Facility: [facility] Address: [address] [place] [address] Performed By: #### 2 4321-2 ####[facility] LABIA [id number] [place] [address] [place] eGFRcr SerPlBld CKD-EPI 2020 81 mL/min/1.73m??? Normal >=60 [facility] Comment on above: Order Comment: Speci men Type: BLOOD SPECIMENOrdering Facility: [facility] Address: [address] [place] [address] Result Comment: Kya mated Glomerular Filtration Rate [...] actual GFR. Performed By: #### 2 4321-2 ####[facility] [facility] [id number] [place] [id number] [place] Glucose [Mass/Vol] 298 mg/dL High 74-99 [facility] Comment on above: Order Comment: Speci men Type: BLOOD SPECIMENOrdering Facility: [facility] Address: [address] [place] [address] Result Comment: The [place] Diabetes Association (ADA) provides guidance for cutoff [...] Standards of Medical Care in Diabetes 2016, [place] Diabetes Association. Diabetes Care. 2016.39(Suppl 1). Performed By: #### 2 4321-2 ####[facility] LABCLIA [id number] [place] [address] [place] Potassium [Moles/Vol] 4.9 mmol/L Normal 3.7-5.1 [facility] Comment on above: Order Comment: Speci men Type: BLOOD SPECIMENOrdering Facility: [facility] Address: [address] [place] [address] Performed By: #### 2 4321-2 ####[facility] LABIA [id number] [place] [address] [place] Sodium [Moles/Vol] 133 mmol/L Low 136-144 [facility] Comment on above: Order Comment: Speci men Type: BLOOD SPECIMENOrdering Facility: [facility] Address: [address] [place] [address] Performed By: #### 2 4321-2 ####[facility] LABIA [id number] [place] [id number] [place] Urea nitrogen [Mass/Vol] 16 mg/dL Normal 7-21 [facility] Comment on above: Order Comment: Speci men Type: BLOOD SPECIMENOrdering Facility: [facility] Address: [address] [place] [address] Performed By: #### 2 4321-2 ####[facility] LABCLIA [id number] [address] [address] [place] CNOVon 07-27-2025 CNOV Normal [facility] Cardiology Visit Reporton Cardiology Visit Report [facility] [address] [place] [address] OFFICE VISIT Date of Service: 06/15/25 MR#: [id number] Acct: [id number] Name: TELMA ITNEO Rep #: [id number] : 1940 Provider: Dr. Zachary Sarabia MD Age/Sex: 84/F [place] [facility] Status: Signed HPI HPI History of Present Illness Details: This is an 84-year-old female that presents here today for a [...] to have an irregularly irregular heart rate. She tells me that she has been diagnosed with metastatic pancreatic carcinoma and has stopped her chemotherapy. 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: No Is patient in pain?: No Allergies Penicillins Allergy (Severe, Verified 06/15/25 14:19) Anaphylaxis tetracycline Allergy (Severe, Verified 06/15/25 14:19) anaphylaxis tramadol (From [facility]) Adverse Reaction (Severe, Verified 06/15/25 14:19) syncope Medications ???Medication ???Instructions ???Recorded ???Confirmed ???Type pantoprazole 40 mg tablet,delayed 40 mg PO DAILY gerd #90 tabs 11/0 11/1706/15/25 Rx release losartan 100 mg tablet 100 mg PO DAILY bp 03/07/23 History metoprolol tartrate 50 mg tablet 50 mg PO BID heart 11/21/23 History apixaban 5 mg tablet 5 mg PO BID blood thinner #180 tab s 06/15/25 06/15/25 Rx insulin human U-100 NPH-regulr 10 unit subcut 06/15/25 06/15/25 H istory 70-30 mix 100 unit/mL subcutaneous susp (Novolin 70/30 U-100 Insulin) insulin syringe-needle U-100 0.3 #10 ea 06/15/25 06/15/25 History mL 31 gauge x 03/12 Have you fallen in the past year?: No PFSH Medical History Type 2 diabetes mellitus with hyperglycemia Transaminitis Hyperbilirubinemia Pancreatic mass History of uterine cancer Overweight (BMI 25.0-29.9) Jaundice Elevated lipase Mass of head of [...] type: does not use ROS Const Const: Positive for fatigue; Negative for weakness, headache(s), daytime sleepiness or difficulty sleeping ENT ENT: Negative for headache(s), dizziness or Nosebleed/epistaxis Cardio Chest Pain: No Palpitations: No Edema: None Resp Respiratory: Negative for SOB with activity, SOB at rest, SOB orthopnea SOB lying down or Cough GI GI: Negative nausea, vomiting or heartburn Neuro Neuro: Negative for dizziness, lightheadedness, near syncope, headache(s) or weakness Endo Endo: Positive for fatigue Cardiology Exam Const Appearance: cooperative, [...] turbinates normal, septum normal and no nasal dis (more content not included)... Normal [facility] CNPNon 06-10-2025 CNPN Normal [facility] CBC W Auto Differential pane l (Bld)on 06-09-2025 Basophils (Bld) [#/Vol] 0.04 10*3/uL Normal <0.11 [facility] Comment on above: Order Comment: Speci men Type: BLOOD SPECIMENOrdering Facility: [facility] Address: [address] [place] [address] Performed By: #### 5 7021-8 ####[facility] LABCLIA [id number] [place] [address] [place] Basophils/100 WBC (Bld) 0.4 % Normal [facility] Comment on above: Order Comment: Speci men Type: BLOOD SPECIMENOrdering Facility: [facility] Address: [address] [place] [address] Performed By: #### 5 7021-8 ####[facility] LABCLIA [id number] [place] [address] [place] Differential cell count method Nom (Bld) Auto Normal [facility] Comment on above: Order Comment: Speci men Type: BLOOD SPECIMENOrdering Facility: [facility] Address: [address] [place] [address] Performed By: #### 5 7021-8 ####[facility] LABCLIA [id number] [address], [facility]95 [place] Eosinophils (Bld) [#/Vol] 0.04 10*3/uL Normal <0.46 [facility] Comment on above: Order Comment: Speci men Type: BLOOD SPECIMENOrdering Facility: [facility] Address: [address] [place] [address] Performed By: #### 5 7021-8 ####[facility] LABCLIA [id number] [address], [place] [address] [place] Eosinophils/100 WBC (Bld) 0.4 % Normal [facility] Comment on above: Order Comment: Speci men Type: BLOOD SPECIMENOrdering Facility: [facility] Address: [address] [place] [address] Performed By: #### 5 7021-8 ####[facility] LABIA [id number] [address], [place] [address] [place] Erythrocyte distribution width (RBC) [Ratio] 15.9 % High 11.5-15.0 [facility] Comment on above: Order Comment: Speci men Type: BLOOD SPECIMENOrdering Facility: [facility] Address: [address] [place] [address] Performed By: #### 5 7021-8 ####[facility] LABCLIA [id number] [place] [address] [place] Hematocrit (Bld) [Volume fraction] 33.8 % Low 36.0-46.0 [facility] Comment on above: Order Comment: Speci men Type: BLOOD SPECIMENOrdering Facility: [facility] Address: [address] [place] [address] Performed By: #### 5 7021-8 ####[facility] LABCLIA [id number] [address], [facility]95 [place] Hemoglobin (Bld) [Mass/Vol] 11.0 g/dL Low 11.5-15.5 [facility] Comment on above: Order Comment: Speci men Type: BLOOD SPECIMENOrdering Facility: [facility] Address: [address] [place] [address] Performed By: #### 5 7021-8 ####[facility] LABCLIA [id number] [place] [address] [place] Immature granulocytes (Bld) [#/Vol] 0.05 10*3/uL Normal <0.10 [facility] Comment on above: Order Comment: Speci men Type: BLOOD SPECIMENOrdering Facility: [facility] Address: [address] [place] [address] Performed By: #### 5 7021-8 ####[facility] LABCLIA [id number] [place] [address] [place] Immature granulocytes/100 WBC (Bld) 0.5 % Normal [facility] Comment on above: Order Comment: Speci men Type: BLOOD SPECIMENOrdering Facility: [facility] Address: [address] [place] [address] Performed By: #### 5 7021-8 ####[facility] LABCLIA [id number] [place] [address] [place] Lymphocytes (Bld) [#/Vol] 1.14 10*3/uL Normal 1.00-4.00 [facility] Comment on above: Order Comment: Speci men Type: BLOOD SPECIMENOrdering Facility: [facility] Address: [address] [place] [address] Performed By: #### 5 7021-8 ####[facility] LABCLIA [id number] [place] [address] [place] Lymphocytes/100 WBC (Bld) 10.3 % Normal [facility] Comment on above: Order Comment: Speci men Type: BLOOD SPECIMENOrdering Facility: [facility] Address: [address] [place] [address] Performed By: #### 5 7021-8 ####[facility] LABIA [id number] [place] [address] [place] MCH (RBC) [Entitic mass] 27.8 pg Normal 26.0-34.0 [facility] Comment on above: Order Comment: Speci men Type: BLOOD SPECIMENOrdering Facility: [facility] Address: [address] [place] [address] Performed By: #### 5 7021-8 ####[facility] LABIA [id number] [place] [address] [place] MCHC (RBC) [Mass/Vol] 32.5 g/dL Normal 30.5-36.0 [facility] Comment on above: Order Comment: Speci men Type: BLOOD SPECIMENOrdering Facility: [facility] Address: [address] [place] [address] Performed By: #### 5 7021-8 ####[facility] LABIA [id number] [place] [address] [place] MCV (RBC) [Entitic vol] 85.6 fL Normal 80.0-100.0 [facility] Comment on above: Order Comment: Speci men Type: BLOOD SPECIMENOrdering Facility: [facility] Address: [address] [place] [address] Performed By: #### 5 7021-8 ####[facility] LABIA [id number] [place] [address] [place] Monocytes (Bld) [#/Vol] 1.19 10*3/uL High <0.87 [facility] Comment on above: Order Comment: Speci men Type: BLOOD SPECIMENOrdering Facility: [facility] Address: [address] [place] [address] Performed By: #### 5 7021-8 ####[facility] LABIA [id number] [place] [address] [place] Monocytes/100 WBC (Bld) 10.8 % Normal [facility] Comment on above: Order Comment: Speci men Type: BLOOD SPECIMENOrdering Facility: [facility] Address: [address] [place] [address] Performed By: #### 5 7021-8 ####[facility] LABCLIA [id number] [facility] [id number] [place] [address] [place] Neutrophils (Bld) [#/Vol] 8.59 10*3/uL High 1.45-7.50 [facility] Comment on above: Order Comment: Speci men Type: BLOOD SPECIMENOrdering Facility: [facility] Address: [address] [place] [address] Performed By: #### 5 7021-8 ####[facility] LABCLIA [id number] [place] [address] [place] Neutrophils/100 WBC (Bld) 77.6 % Normal [facility] Comment on above: Order Comment: Speci men Type: BLOOD SPECIMENOrdering Facility: [facility] Address: [address] [place] [address] Performed By: #### 5 7021-8 ####[facility] LABCLIA [id number] [place] [address] [place] Nucleated RBC (Bld) [#/Vol] 10*3/uL Normal <0.01 [facility] Comment on above: Order Comment: Speci men Type: BLOOD SPECIMENOrdering Facility: [facility] Address: [address] [place] [address] Performed By: #### 5 7021-8 ####[facility] LABCLIA [id number] [place] [id number] [place] Nucleated RBC/100 WBC (Bld) [Ratio] 0.0 /100 WBC Normal [facility] Comment on above: Order Comment: Speci men Type: BLOOD SPECIMENOrdering Facility: [facility] Address: [address] [place] [address] Performed By: #### 5 7021-8 ####[facility] LABCLIA [id number] [facility] [address] [address] [place] Platelet mean volume (Bld) [Entitic vol] 12.2 fL Normal 9.0-12.7 [facility] Comment on above: Order Comment: Speci men Type: BLOOD SPECIMENOrdering Facility: [facility] Address: [address] [place] [address] Performed By: #### 5 7021-8 ####[facility] LABCLIA [id number] [place] [address] [place] Platelets (Bld) [#/Vol] 340 10*3/uL Normal 150-400 [facility] Comment on above: Order Comment: Speci men Type: BLOOD SPECIMENOrdering Facility: [facility] Address: [address] [place] [address] Performed By: #### 5 7021-8 ####[facility] LABIA [id number] [place] [address] [place] RBC (Bld) [#/Vol] 3.95 10*6/uL Normal 3.90-5.20 [facility] Comment on above: Order Comment: Speci men Type: BLOOD SPECIMENOrdering Facility: [facility] Address: [address] [place] [address] Performed By: #### 5 7021-8 ####[facility] LABCLIA [id number] [place] [id number] [place] WBC (Bld) [#/Vol] 11.05 10*3/uL High 3.70-11.00 [facility] Comment on above: Order Comment: Speci men Type: BLOOD SPECIMENOrdering Facility: [facility] Address: [address] [place] [address] Performed By: #### 5 7021-8 ####[facility] LABCLIA [id number] [address] [place] [address] [place] CNOVon 06-09-2025 CNOV Normal [facility] Comprehensive metabolic 2000 panelon 06-09-2025 Albumin [Mass/Vol] 3.8 g/dL Low 3.9-4.9 [facility] Comment on above: Order Comment: Speci men Type: BLOOD SPECIMENOrdering Facility: [facility] Address: [address] [place] [address] Performed By: #### 2 4323-8 ####[facility] LABCLIA [id number] [address] [place] [address] [place] ALP [Catalytic activity/Vol] 173 U/L High 34-123 [facility] Comment on above: Order Comment: Speci men Type: BLOOD SPECIMENOrdering Facility: [facility] Address: [address] [place] [address] Performed By: #### 2 4323-8 ####[facility] LABCLIA [id number] [address] [place] [address] [place] ALT [Catalytic activity/Vol] 20 U/L Normal 7-38 [facility] Comment on above: Order Comment: Speci men Type: BLOOD SPECIMENOrdering Facility: [facility] Address: [address] [place], [place] [address] Performed By: #### 2 4323-8 ####[facility] LABCLIA [id number] [address] [place] [address] [place] Anion gap [Moles/Vol] 13 mmol/L Normal 8-15 [facility] Comment on above: Order Comment: Speci men Type: BLOOD SPECIMENOrdering Facility: [facility] Address: [address] [place], [place] [address] Performed By: #### 2 4323-8 ####[facility] LABCLIA [id number] [address] [place] [address] [place] AST [Catalytic activity/Vol] 22 U/L Normal 13-35 [facility] Comment on above: Order Comment: Speci men Type: BLOOD SPECIMENOrdering Facility: [facility] Address: [address] [place], [place] [address] Performed By: #### 2 4323-8 ####[facility] LABCLIA [id number] [address] [address] [place] Bilirubin [Mass/Vol] 1.0 mg/dL Normal 0.2-1.3 [facility] Comment on above: Order Comment: Speci men Type: BLOOD SPECIMENOrdering Facility: [facility] Address: [address] [place] [address] Performed By: #### 2 4323-8 ####[facility] LABCLIA [id number] [place] [address] [place] Calcium [Mass/Vol] 9.6 mg/dL Normal 8.5-10.2 [facility] Comment on above: Order Comment: Speci men Type: BLOOD SPECIMENOrdering Facility: [facility] Address: [address] [place] [address] Performed By: #### 2 4323-8 ####[facility] LABCLIA [id number] [place] [address] [place] Chloride [Moles/Vol] 97 mmol/L Low 98-107 [facility] Comment on above: Order Comment: Speci men Type: BLOOD SPECIMENOrdering Facility: [facility] Address: [address] [place] [address] Performed By: #### 2 4323-8 ####[facility] LABCLIA [id number] [place] [id number] [place] CO2 [Moles/Vol] 18 mmol/L Low 22-30 [facility] Comment on above: Order Comment: Speci men Type: BLOOD SPECIMENOrdering Facility: [facility] Address: [address] [place], [place] [address] Performed By: #### 2 4323-8 ####[facility] LABCLIA [id number] [address] [address] [place] Creatinine [Mass/Vol] 0.61 mg/dL Normal 0.58-0.96 [facility] Comment on above: Order Comment: Dayron stinson Type: BLOOD SPECIMENOrdering Facility: [facility] Address: [address] [place] [address] Performed By: #### 2 4323-8 ####[facility] LABIA [id number] [address] [address] [place] eGFRcr SerPlBld CKD-EPI 2020 88 mL/min/1.73m??? Normal >=60 [facility] Comment on above: Order Comment: Dayron stinson Type: BLOOD SPECIMENOrdering Facility: [facility] Address: [address] [place] [address] Result Comment: Kya mated Glomerular Filtration Rate [...] actual GFR. Performed By: #### 2 4323-8 ####[facility] LABCLIA [id number] [address] [address] [place] Glucose [Mass/Vol] 283 mg/dL High 74-99 [facility] Comment on above: Order Comment: Dayron stinson Type: BLOOD SPECIMENOrdering Facility: [facility] Address: [address] [place] [id number] Result Comment: The [place] Diabetes Association (ADA) provides guidance for cutoff [...] Standards of Medical Care in Diabetes 2016, [place] Diabetes Association. Diabetes Care. 2016.39(Suppl 1). Performed By: #### 2 4323-8 ####[facility] LABCLIA [id number] [facility] [address] [address] [place] Potassium [Moles/Vol] 4.9 mmol/L Normal 3.7-5.1 [facility] Comment on above: Order Comment: Speci men Type: BLOOD SPECIMENOrdering Facility: [facility] Address: [address] [place] [address] Performed By: #### 2 4323-8 ####[facility] LABIA [id number] [place] [id number] [place] Protein [Mass/Vol] 7.4 g/dL Normal 6.3-8.0 [facility] Comment on above: Order Comment: Speci men Type: BLOOD SPECIMENOrdering Facility: [facility] Address: [address] [place] [address] Performed By: #### 2 4323-8 ####[facility] LABIA [id number] [place] [id number] [place] Sodium [Moles/Vol] 128 mmol/L Low 136-144 [facility] Comment on above: Order Comment: Speci men Type: BLOOD SPECIMENOrdering Facility: [facility] Address: [address] [place] [address] Performed By: #### 2 4323-8 ####[facility] LABIA [id number] [place] [id number] [place] Urea nitrogen [Mass/Vol] 12 mg/dL Normal 7-21 [facility] Comment on above: Order Comment: Speci men Type: BLOOD SPECIMENOrdering Facility: [facility] Address: [address] [place] [address] Performed By: #### 2 4323-8 ####[facility] LABIA [id number] [place] [id number] [place] HbA1c (Bld)on 06-09-2025 Average glucose Estimated from glycated hemoglobin (Bld) [Mass/Vol] 220 mg/dL Normal [facility] Comment on above: Order Comment: Speci men Type: BLOOD SPECIMENOrdering Facility: [facility] Address: [address] [place] [address] Result Comment: eAG: (Estimated average glucose) is a calculated value from HgbA1c and is account retention representative of the average blood glucose level in the last 2-3 month period. Performed By: #### 5 5454-3 ####[facility] [id number] [place] [address] [place] HbA1c (Bld) [Mass fraction] 9.3 % High 4.3-5.6 [facility] Comment on above: Order Comment: Dayron stinson Type: BLOOD SPECIMENOrdering Facility: [facility] Address: [address] [place] [address] Result Comment: Amer [place] Diabetes Association guidelines indicate that patients with HgbA1c in the range 5.7-6.4% are at increased risk for development of diabetes, and intervention by lifestyle modification may be beneficial. HgbA1c greater or equal to 6.5% is considered diagnostic of diabetes. Performed By: #### 5 5454-3 ####[facility] [id number] [place] [id number] [place] Culture, Blood (WB)on 2024 CUB Blood cultures x2, f rom two different sites No growth in 5 days. Normal [facility] Comment on above: Performed By: #### L 501.6710, L3100.5017, L500.4050, L100.0100, L504.2610, L101.9900 #### [facility] [address] [place], [address] CBC W/Diff, Automatedon 08-0 Absolute Neut Normal 2.0-7.7 [facility] Comment on above: Result Comment: Canc elled via OM: Order cancelled - Patient discharged Performed By: #### L 100.0100, L500.4050 #### [facility] [address] [place], [address] HCT Normal 37-47 [facility] Comment on above: Result Comment: Canc elled via OM: Order cancelled - Patient discharged Performed By: #### L 100.0100, L500.4050 #### [facility] [address] [place], [address] HGB Normal 12.0-15.0 [facility] Comment on above: Result Comment: Canc elled via OM: Order cancelled - Patient discharged Performed By: #### L 100.0100, L500.4050 #### [facility] [address] [place], [address] MCH Normal 27.0-32.0 [facility] Comment on above: Result Comment: Canc elled via OM: Order cancelled - Patient discharged Performed By: #### L 100.0100, L500.4050 #### [facility] [address] [place], [address] MCHC Normal 32-36 [facility] Comment on above: Result Comment: Canc elled via OM: Order cancelled - Patient discharged Performed By: #### L 100.0100, L500.4050 #### [facility] [address] [place], [address] MCV Normal 81-99 [facility] Comment on above: Result Comment: Canc elled via OM: Order cancelled - Patient discharged Performed By: #### L 100.0100, L500.4050 #### [facility] [address] [place], [address] NEUT% Normal 47-70 [facility] Comment on above: Result Comment: Canc elled via OM: Order cancelled - Patient discharged Performed By: #### L 100.0100, L500.4050 #### [facility] [address] [place], [address] PLT Normal 150-450 [facility] Comment on above: Result Comment: Canc elled via OM: Order cancelled - Patient discharged Performed By: #### L 100.0100, L500.4050 #### [facility] [address] [place], [address] RBC Normal 4.2-5.4 [facility] Comment on above: Result Comment: Canc elled via OM: Order cancelled - Patient discharged Performed By: #### L 100.0100, L500.4050 #### [facility] [address] [place], [address] RDW CV Normal 11.6-14.6 [facility] Comment on above: Result Comment: Canc elled via OM: Order cancelled - Patient discharged Performed By: #### L 100.0100, L500.4050 #### [facility] [address] [place], [address] RDW SD Normal 35.1-43.9 [facility] Comment on above: Result Comment: Canc elled via OM: Order cancelled - Patient discharged Performed By: #### L 100.0100, L500.4050 #### [facility] [address] [place], [address] WBC Normal 4.4-11.0 [facility] Comment on above: Result Comment: Canc elled via OM: Order cancelled - Patient discharged Performed By: #### L 100.0100, L500.4050 #### [facility] [address] [place], [address] Comprehensive Metabolic Prof ilon 06-04-2025 ALB Normal 3.4-4.8 [facility] Comment on above: Result Comment: Canc elled via OM: Order cancelled - Patient discharged Performed By: #### L 100.0100, L500.4050 #### [facility] [address] [place], [address] ALK PHOS Normal 35-104 [facility] Comment on above: Result Comment: Canc elled via OM: Order cancelled - Patient discharged Performed By: #### L 100.0100, L500.4050 #### [facility] [address] [place], [address] ALT Normal <=34 [facility] Comment on above: Result Comment: Canc elled via OM: Order cancelled - Patient discharged Performed By: #### L 100.0100, L500.4050 #### [facility] [address] [place], [address] AST Normal <=31 [facility] Comment on above: Result Comment: Canc elled via OM: Order cancelled - Patient discharged Performed By: #### L 100.0100, L500.4050 #### [facility] [address] [place], [address] BUN Normal 4-19 [facility] Comment on above: Result Comment: Canc elled via OM: Order cancelled - Patient discharged Performed By: #### L 100.0100, L500.4050 #### [facility] [address] [place], [address] BUN/CRE Normal 10-20 [facility] Comment on above: Result Comment: Canc elled via OM: Order cancelled - Patient discharged Performed By: #### L 100.0100, L500.4050 #### [facility] [address] [place], [address] Calcium Normal 7.6-11.0 [facility] Comment on above: Result Comment: Canc elled via OM: Order cancelled - Patient discharged Performed By: #### L 100.0100, L500.4050 #### [facility] [address] [place], [address] CL Normal 98-108 [facility] Comment on above: Result Comment: Canc elled via OM: Order cancelled - Patient discharged Performed By: #### L 100.0100, L500.4050 #### [facility] [address] [place], [address] CO2 Normal 21.0-32.0 [facility] Comment on above: Result Comment: Canc elled via OM: Order cancelled - Patient discharged Performed By: #### L 100.0100, L500.4050 #### [facility] [address] [place], [address] CREAT,SERUM Normal 0.70-1.20 [facility] Comment on above: Result Comment: Canc elled via OM: Order cancelled - Patient discharged Performed By: #### L 100.0100, L500.4050 #### [facility] [address] [place], [address] eGFR Normal >60 [facility] Comment on above: Result Comment: Canc elled via OM: Order cancelled - Patient discharged Performed By: #### L 100.0100, L500.4050 #### [facility] [address] [place], [address] GAP Normal 5-15 [facility] Comment on above: Result Comment: Canc elled via OM: Order cancelled - Patient discharged Performed By: #### L 100.0100, L500.4050 #### [facility] [address] [place], [address] GLU Normal 70-99 [facility] Comment on above: Result Comment: Canc elled via OM: Order cancelled - Patient discharged Performed By: #### L 100.0100, L500.4050 #### [place] [facility] [address] [place], [address] Potassium Normal 3.3-5.1 [facility] Comment on above: Result Comment: Canc elled via OM: Order cancelled - Patient discharged Performed By: #### L 100.0100, L500.4050 #### [facility] [address] [place], [address] T BILI Normal 0.00-1.30 [facility] Comment on above: Result Comment: Canc elled via OM: Order cancelled - Patient discharged Performed By: #### L 100.0100, L500.4050 #### [facility] [address] [place], [address] T PROT Normal 5.9-8.4 [facility] Comment on above: Result Comment: Canc elled via OM: Order cancelled - Patient discharged Performed By: #### L 100.0100, L500.4050 #### [facility] [address] [place], [address] Comprehensive Metabolic Profil Normal 133-145 [facility] Comment on above: Result Comment: Canc elled via OM: Order cancelled - Patient discharged Performed By: #### L 100.0100, L500.4050 #### [facility] [address] [place], [address] CBC W/Diff, Automatedon 08-0 Absolute Neut Normal 2.0-7.7 [facility] Comment on above: Result Comment: Canc elled via OM: Order cancelled - Patient discharged Performed By: #### L 501.2450 #### [facility] [address] [place], [address] HCT Normal 37-47 [facility] Comment on above: Result Comment: Canc elled via OM: Order cancelled - Patient discharged Performed By: #### L 501.2450 #### [facility] [address] [place], [address] HGB Normal 12.0-15.0 [facility] Comment on above: Result Comment: Canc elled via OM: Order cancelled - Patient discharged Performed By: #### L 501.2450 #### [facility] [address] [place], [address] MCH Normal 27.0-32.0 [facility] Comment on above: Result Comment: Canc elled via OM: Order cancelled - Patient discharged Performed By: #### L 501.2450 #### [facility] [address] [place], [address] MCHC Normal 32-36 [facility] Comment on above: Result Comment: Canc elled via OM: Order cancelled - Patient discharged Performed By: #### L 501.2450 #### [facility] [address] [place], [address] MCV Normal 81-99 [facility] Comment on above: Result Comment: Canc elled via OM: Order cancelled - Patient discharged Performed By: #### L 501.2450 #### [facility] [address] [place], [address] NEUT% Normal 47-70 [facility] Comment on above: Result Comment: Canc elled via OM: Order cancelled - Patient discharged Performed By: #### L 501.2450 #### [facility] [address] [place], [address] PLT Normal 150-450 [facility] Comment on above: Result Comment: Canc elled via OM: Order cancelled - Patient discharged Performed By: #### L 501.2450 #### [facility] [address] [place], [address] RBC Normal 4.2-5.4 [facility] Comment on above: Result Comment: Canc elled via OM: Order cancelled - Patient discharged Performed By: #### L 501.2450 #### [facility] [address] [place], [address] RDW CV Normal 11.6-14.6 [facility] Comment on above: Result Comment: Canc elled via OM: Order cancelled - Patient discharged Performed By: #### L 2450 #### [facility] [address] [place], [address] RDW SD Normal 35.1-43.9 [facility] Comment on above: Result Comment: Canc elled via OM: Order cancelled - Patient discharged Performed By: #### L 0 #### [facility] [address] [place], [address] WBC Normal 4.4-11.0 [facility] Comment on above: Result Comment: Canc elled via OM: Order cancelled - Patient discharged Performed By: #### L 2450 #### [facility] [address] [place], [address] CNPTOUTREACHon 06-03-2025 CNPTOUTREACH Normal [facility] Metabolic Prof ilon 06-03-2025 ALB Normal 3.4-4.8 [facility] Comment on above: Result Comment: Canc elled via OM: Order cancelled - Patient discharged Performed By: #### L 2450 #### [facility] [address] [place], [address] ALK PHOS Normal 35-104 [facility] Comment on above: Result Comment: Canc elled via OM: Order cancelled - Patient discharged Performed By: #### L .2450 #### [facility] [address] [place], [address] ALT Normal <=34 [facility] Comment on above: Result Comment: Canc elled via OM: Order cancelled - Patient discharged Performed By: #### L 0 #### [facility] [address] [place], [address] AST Normal <=31 [facility] Comment on above: Result Comment: Canc elled via OM: Order cancelled - Patient discharged Performed By: #### L .2450 #### [facility] [address] [place], [address] BUN Normal 4-19 [facility] Comment on above: Result Comment: Canc elled via OM: Order cancelled - Patient discharged Performed By: #### L #### [facility] [address] [place], [address] BUN/CRE Normal 10-20 [facility] Comment on above: Result Comment: Canc elled via OM: Order cancelled - Patient discharged Performed By: #### L 0 #### [facility] [address] [place], [address] Calcium Normal 7.6-11.0 [facility] Comment on above: Result Comment: Canc elled via OM: Order cancelled - Patient discharged Performed By: #### L #### [facility] [address] [place], [address] CL Normal 98-108 [facility] Comment on above: Result Comment: Canc elled via OM: Order cancelled - Patient discharged Performed By: #### L 2450 #### [facility] [address] [place], [address] CO2 Normal 21.0-32.0 [facility] Comment on above: Result Comment: Canc elled via OM: Order cancelled - Patient discharged Performed By: #### L #### [facility] [address] [place], [address] CREAT,SERUM Normal 0.70-1.20 [facility] Comment on above: Result Comment: Canc elled via OM: Order cancelled - Patient discharged Performed By: #### L 501.2450 #### [facility] [address] [place], [address] eGFR Normal >60 [facility] Comment on above: Result Comment: Canc elled via OM: Order cancelled - Patient discharged Performed By: #### L .2450 #### [facility] [address] [place], [address] GAP Normal 5-15 [facility] Comment on above: Result Comment: Canc elled via OM: Order cancelled - Patient discharged Performed By: #### L 2450 #### [facility] [address] [place], [address] GLU Normal 70-99 [facility] Comment on above: Result Comment: Canc elled via OM: Order cancelled - Patient discharged Performed By: #### L 0 #### [facility] [address] [place], [address] Potassium Normal 3.3-5.1 [facility] Comment on above: Result Comment: Canc elled via OM: Order cancelled - Patient discharged Performed By: #### L .2450 #### [facility] [address] [place], [address] T BILI Normal 0.00-1.30 [facility] Comment on above: Result Comment: Canc elled via OM: Order cancelled - Patient discharged Performed By: #### L .2450 #### [facility] [address] [place], [address] T PROT Normal 5.9-8.4 [facility] Comment on above: Result Comment: Canc elled via OM: Order cancelled - Patient discharged Performed By: #### L .2450 #### [facility] [address] [place], [address] Comprehensive Metabolic Profil Normal 133-145 [facility] Comment on above: Result Comment: Canc elled via OM: Order cancelled - Patient discharged Performed By: #### L 501.2450 #### [facility] [address] [place], [address] CBC W/Diff, Automatedon 08-0 6-2024 Absolute Neut Normal 2.0-7.7 [facility] Comment on above: Result Comment: PT H BEEN DISCHARGED Performed By: #### L 503.6005 #### [facility] [address] [place], [address] HCT Normal 37-47 [facility] Comment on above: Result Comment: PT H BEEN DISCHARGED Performed By: #### L 503.6005 #### [facility] [address] [place], [address] HGB Normal 12.0-15.0 [facility] Comment on above: Result Comment: PT H BEEN DISCHARGED Performed By: #### L 503.6005 #### [facility] [address] [place], [address] MCH Normal 27.0-32.0 [facility] Comment on above: Result Comment: PT H BEEN DISCHARGED Performed By: #### L 503.6005 #### [facility] [address] [place], [address] MCHC Normal 32-36 [facility] Comment on above: Result Comment: PT H BEEN DISCHARGED Performed By: #### L 503.6005 #### [facility] [address] [place], [address] MCV Normal 81-99 [facility] Comment on above: Result Comment: PT H BEEN DISCHARGED Performed By: #### L 503.6005 #### [facility] [address] [place], [address] NEUT% Normal 47-70 [facility] Comment on above: Result Comment: PT H BEEN DISCHARGED Performed By: #### L 503.6005 #### [facility] [address] [place], [address] PLT Normal 150-450 [facility] Comment on above: Result Comment: PT H BEEN DISCHARGED Performed By: #### L 503.6005 #### [facility] [address] [place], [address] RBC Normal 4.2-5.4 [facility] Comment on above: Result Comment: PT H BEEN DISCHARGED Performed By: #### L 503.6005 #### [facility] [address] [place], [address] RDW CV Normal 11.6-14.6 [facility] Comment on above: Result Comment: PT H BEEN DISCHARGED Performed By: #### L 503.6005 #### [facility] [address] [place], [address] RDW SD Normal 35.1-43.9 [facility] Comment on above: Result Comment: PT H BEEN DISCHARGED Performed By: #### L 503.6005 #### [facility] [address] [place], [address] WBC Normal 4.4-11.0 [facility] Comment on above: Result Comment: PT H BEEN DISCHARGED Performed By: #### L 503.6005 #### [facility] [address] [place], [address] Comprehensive Metabolic Prof ilon 06-02-2025 ALB Normal 3.4-4.8 [facility] Comment on above: Result Comment: PT H A BEEN DISCHARGED Performed By: #### L 503.6005 #### [facility] [address] [place], [address] ALK PHOS Normal 35-104 [facility] Comment on above: Result Comment: PT H A BEEN DISCHARGED Performed By: #### L 503.6005 #### [facility] [address] [place], [address] ALT Normal <=34 [facility] Comment on above: Result Comment: PT H A BEEN DISCHARGED Performed By: #### L 503.6005 #### [facility] [address] [place], [address] AST Normal <=31 [facility] Comment on above: Result Comment: PT H A BEEN DISCHARGED Performed By: #### L 503.6005 #### [facility] [address] [place], [address] BUN Normal 4-19 [facility] Comment on above: Result Comment: PT H A BEEN DISCHARGED Performed By: #### L 503.6005 #### [facility] [address] [place], [address] BUN/CRE Normal 10-20 [facility] Comment on above: Result Comment: PT H A BEEN DISCHARGED Performed By: #### L 503.6005 #### [facility] [address] [place], [address] Calcium Normal 7.6-11.0 [facility] Comment on above: Result Comment: PT H A BEEN DISCHARGED Performed By: #### L 503.6005 #### [facility] [address] [place], [address] CL Normal 98-108 [facility] Comment on above: Result Comment: PT H A BEEN DISCHARGED Performed By: #### L 503.6005 #### [facility] [address] [place], [address] CO2 Normal 21.0-32.0 [facility] Comment on above: Result Comment: PT H A BEEN DISCHARGED Performed By: #### L 503.6005 #### [facility] [address] [place], [address] CREAT,SERUM Normal 0.70-1.20 [facility] Comment on above: Result Comment: PT H A BEEN DISCHARGED Performed By: #### L 503.6005 #### [facility] [address] [place], [address] eGFR Normal >60 [facility] Comment on above: Result Comment: PT H A BEEN DISCHARGED Performed By: #### L 503.6005 #### [facility] [address] [place], [address] GAP Normal 5-15 [facility] Comment on above: Result Comment: PT H A BEEN DISCHARGED Performed By: #### L 503.6005 #### [facility] [address] [place], [address] GLU Normal 70-99 [facility] Comment on above: Result Comment: PT H A BEEN DISCHARGED Performed By: #### L 503.6005 #### [facility] [address] [place], [address] Potassium Normal 3.3-5.1 [facility] Comment on above: Result Comment: PT H A BEEN DISCHARGED Performed By: #### L 503.6005 #### [facility] [address] [place], [address] T BILI Normal 0.00-1.30 [facility] Comment on above: Result Comment: PT H A BEEN DISCHARGED Performed By: #### L 503.6005 #### [facility] [address] [place], [address] T PROT Normal 5.9-8.4 [facility] Comment on above: Result Comment: PT H A BEEN DISCHARGED Performed By: #### L 503.6005 #### [facility] [address] [place], [address] Comprehensive Metabolic Profil Normal 133-145 [facility] Comment on above: Result Comment: PT H A BEEN DISCHARGED Performed By: #### L 503.6005 #### [facility] [address] [place], [place], [address] NURSING PROGon 06-02-[address] [facility] Absolute lymphocyte countOrd ered By: Oniel Hernandez on 06-01-2025 Lymphocytes Auto (Unsp spec) [#/Vol] 0.68 10*3/uL Low 0.83-4.51 [facility] Absolute neutrophil countOrd ered By: Oniel Hernandez on 06-01-2025 Neutrophils (Bld) [#/Vol] 4.5 10*3/uL 2.0-7.7 [facility] Anion gap in Serum or Plasma Ordered By: Oniel Hernandez on 06-01-2025 Anion gap [Moles/Vol] 12 mmol/L 5-15 [facility] Automated lymphocyte count a s percentage of total leukocytesOrdered By: Oniel Hernandez on 06-01-2025 Lymphocytes/100 WBC Auto (Unsp spec) 10.8 % Low 19-41 [facility] BUN/creatinine ratioOrdered By: Oniel Hernandez on 06-01-2025 Urea nitrogen/Creatinine [Mass ratio] 8.3 mg/mg Low 10-20 [facility] Basophil percentageOrdered B y: Oniel Hernandez on 06-01-2025 Basophils/100 WBC (Bld) 0.5 % 0-1 [facility] Bilirubin, totalOrdered By: Oniel Hernandez on 06-01-2025 Bilirubin [Mass/Vol] 4.68 mg/dL High 0.00-1.30 [facility] CBC W/Diff, Automatedon Absolute Lymph 0.68 X10 3/uL Low 0.83-4.51 [facility] Comment on above: Performed By: #### L 501.2450 #### [facility] [address] [place], [place], [id number] Absolute Neut 4.5 X10 3/uL Normal 2.0-7.7 [facility] Comment on above: Performed By: #### L 501.2450 #### [facility] [address] [place], [address] Basophils/100 WBC (Bld) 0.5 % Normal 0-1 [facility] Comment on above: Performed By: #### L 501.0 #### [facility] [address] [place], [address] Eosinophils/100 WBC (Bld) 1.6 % Normal 0-5 [facility] Comment on above: Performed By: #### L 501.0 #### [facility] [address] [place], [address] Erythrocyte distribution width (RBC) [Ratio] 15.3 % High 11.6-14.6 [facility] Comment on above: Performed By: #### L 501.0 #### [facility] [address] [place], [address] Hematocrit (Bld) [Volume fraction] 31.0 % Low 37-47 [facility] Comment on above: Performed By: #### L 501.0 #### [facility] [address] [place], [address] Hemoglobin (Bld) [Mass/Vol] 10.0 g/dL Low 12.0-15.0 [facility] Comment on above: Performed By: #### L 501.0 #### [facility] [address] [place], [address] IG% 0.200 Normal 0.0-0.9 [facility] Comment on above: Result Comment: IG% - Immature Granulocytes (promyelocytes, myelocytes and metamyelocytes) > 1% indicates that a LEFT SHIFT is Present. Performed By: #### L 501.2450 #### [facility] [address] [place], [address] Lymphocytes/100 WBC (Bld) 10.8 % Low 19-41 [facility] Comment on above: Performed By: #### L 501.2450 #### [facility] [address] [place], [address] MCH (RBC) [Entitic mass] 27.5 pg Normal 27.0-32.0 [facility] Comment on above: Performed By: #### L 501.2450 #### [facility] [address] [place], [address] MCHC (RBC) [Mass/Vol] 32.3 g/dL Normal 32-36 [facility] Comment on above: Performed By: #### L 501.2450 #### [facility] [address] [place], [address] MCV (RBC) [Entitic vol] 85.2 fL Normal 81-99 [facility] Comment on above: Performed By: #### L 501.2450 #### [facility] [address] [place], [address] Monocytes/100 WBC (Bld) 15.3 % High 0-10 [facility] Comment on above: Performed By: #### L 501.2450 #### [facility] [address] [place], [address] Neutrophils/100 WBC (Bld) 71.6 % High 47-70 [facility] Comment on above: Performed By: #### L 501.2450 #### [facility] [address] [place], [address] Nucleated RBC (Bld) [#/Vol] 0 10*3/uL Normal 0-5 [facility] Comment on above: Performed By: #### L 501.2450 #### [facility] [address] [place], [address] Platelet mean volume (Bld) [Entitic vol] 12.7 fL High 6.2-12.0 [facility] Comment on above: Performed By: #### L 501.2450 #### [facility] [address] [place], [address] Platelets (Bld) [#/Vol] 180 10*3/uL Normal 150-450 [facility] Comment on above: Performed By: #### L 501.2450 #### [facility] [address] [place], [address] RBC (Bld) [#/Vol] 3.64 10*6/uL Low 4.2-5.4 [facility] Comment on above: Performed By: #### L 501.2450 #### [facility] [address] [place], [address] RDW SD 47.8 fl High 35.1-43.9 [facility] Comment on above: Performed By: #### L 501.2450 #### [facility] [address] [place], [address] WBC (Bld) [#/Vol] 6.3 10*3/uL Normal 4.4-11.0 [facility] Comment on above: Performed By: #### L 501.2450 #### [facility] [address] [place], [address] Carbon dioxide, total [Moles /volume] in Central venous bloodOrdered By: Oniel Hernandez on 06-01-2025 CO2 [Moles/Vol] 20.4 mmol/L Low 21.0-32.0 [facility] Chloride assayOrdered By: Simeon Hernandez on 06-01-2025 Chloride [Moles/Vol] 108 mmol/L 98-108 [facility] Comprehensive Metabolic Prof ilon 06-01-2025 Albumin [Mass/Vol] 3.3 g/dL Low 3.4-4.8 [facility] Comment on above: Performed By: #### L 501.2450 #### [facility] [address] [place], [address] Albumin/Globulin [Mass ratio] 1.2 {ratio} Normal 0.9-2.4 [facility] Comment on above: Performed By: #### L .2449 #### [facility] [address] [place], [address] ALK PHOS 339 U/L High 35-104 [facility] Comment on above: Performed By: #### L .0 #### [facility] [address] [place], [address] ALT [Catalytic activity/Vol] 95 U/L High <=34 [facility] Comment on above: Performed By: #### L 501.2449 #### [facility] [address] [place], [address] AST [Catalytic activity/Vol] 49 U/L High <=31 [facility] Comment on above: Performed By: #### L 501.2449 #### [facility] [address] [place], [address] Bilirubin [Mass/Vol] 4.68 mg/dL High 0.00-1.30 [facility] Comment on above: Performed By: #### L 501.0 #### [facility] [address] [place], [address] BUN/CRE 8.3 RATIO Low 10-20 [facility] Comment on above: Performed By: #### L .0 #### [facility] [address] [place], [address] Calcium [Mass/Vol] 8.8 mg/dL Normal 7.6-11.0 [facility] Comment on above: Performed By: #### L 501.2450 #### [facility] [address] [place], [address] Chloride [Moles/Vol] 108 mmol/L Normal 98-108 [facility] Comment on above: Performed By: #### L .0 #### [facility] [address] [place], [address] CO2 [Moles/Vol] 20.4 mmol/L Low 21.0-32.0 [facility] Comment on above: Performed By: #### L 908.2450 #### [facility] [address] [place], [address] Creatinine [Mass/Vol] 0.63 mg/dL Low 0.70-1.20 [facility] Comment on above: Performed By: #### L 501.2450 #### [facility] [address] [place], [address] ECRCL 44.77 ml/min Low 50-250 [facility] Comment on above: Performed By: #### L 501.2450 #### [facility] [address] [place], [address] GAP 12 Normal 5-15 [facility] Comment on above: Performed By: #### L 501.0 #### [facility] [address] [place], [address] GFR/1.73 sq M.predicted among non-blacks MDRD (S/P/Bld) [Vol rate/Area] 88 mL/min/{1.73_m2} Normal >60 [facility] Comment on above: Result Comment: mL/m in/1.73m2 CKD-EPI Creatinine Equation (2020) Performed By: #### L 501.2450 #### [facility] [address] [place], [address] Globulin (S) [Mass/Vol] 2.9 g/dL Normal 2.2-4.2 [facility] Comment on above: Performed By: #### L 501.2450 #### [facility] [address] [place], [address] Glucose [Mass/Vol] 171 mg/dL High 70-99 [facility] Comment on above: Performed By: #### L 963.2450 #### [facility] [address] [place], [address] Potassium [Moles/Vol] 3.1 mmol/L Low 3.3-5.1 [facility] Comment on above: Performed By: #### L 501.2450 #### [facility] [address] [place], [address] Sodium [Moles/Vol] 139 mmol/L Normal 133-145 [facility] Comment on above: Performed By: #### L 501.2450 #### [facility] [address] [place], [address] T PROT 6.2 g/dL Normal 5.9-8.4 [facility] Comment on above: Performed By: #### L 501.2450 #### [facility] [address] [place], [address] Urea nitrogen [Mass/Vol] 5 mg/dL Normal 4-19 [facility] Comment on above: Performed By: #### L 501.2450 #### [facility] [address] [place], [address] Cytology report of Body flui d Cyto stainOrdered By: Mohit Brown on 06-01-2025 Cytology report Cyto stain Doc (Body fld) SEE PATHOLOGY REPORT [facility] Comment on above: Specimen submitted t o Anatomical Pathology Department for testing. Cytology, Body Fluid / CSFon 06-01-2025 CYTOLOGY,BF/CSF SEE PATHOLOGY REPORT Normal [facility] Comment on above: Order Comment: Comme nts: BILIARY STENTBILIARY STENT (CYTOLOGY) Result Comment: Spec imen submitted to Anatomical Pathology Department for testing. Performed By: #### L 501.2450 #### [facility] [address] [place], [address] ERCP Biliary/Pancreason 08-0 ERCP Biliary/Pancreas [facility] Imaging Services [address] [place] [address] ERCP Biliary/Pancreas MR#: [id number] Acct: [id number] Name: TELMA TINEO Rep #: [id number] : 1940 F 84 From: Eliseo Mejia MD PCP: Dr. Henok Martinez MD Status: ADM IN Study: ERCP Biliary/Pancreas Date of Exam: 06/01/25 Exam# [id number] Ordering Dr: Mohit Brown DO EXAM: ERCP BILIARY/PANCREAS; INTRAOPERATIVE FLUOROSCOPY CLINICAL HISTORY: Abdominal pain COMPARISON: ERCP 01/12/2025. Abdominal CT 01/09/2025. TECHNIQUE: 9 intraoperative fluoroscopy images are submitted for review. FINDINGS: Patient is status post ERCP, which demonstrates dilatation of the common bile duct and proximal intrahepatic biliary tree, with no filling defects appreciated to suggest choledocholithiasis. A biliary stent is deployed within the CBD and presumably extending into the duodenum. Total fluoroscopy time 81.3 seconds. Total radiation dose 13.98 mGy. RAD/ERCP Biliary/Pancreas IMPRESSION: Intraoperative fluoroscopy for ERCP, as above. Reading Location: [id number] CC: Dr. Henok Martinez MD; Mohit Brown DO Program Engagement Director: Signed Normal [facility] ERCP Reporton 06-01-2025 ERCP Report [facility] Medical Records Department [address] [place] [address] ERCP Report MR#: [id number] Acct: [id number] Name: TELMA TINEO Rep #: [id number] : 1940 84 From: Mohit Brown DO PCP: Dr. Henok Martinez MD Status:ADM IN Patient Name: Telma Tineo Procedure Date: 06/01/2025 3:54 PM Date of : 1940 Age: 84 Procedure: ERCP Indications: Suspected ascending cholangitis, Jaundice, Elevated liver enzymes, Malignant tumor of the head of pancreas Providers: Mohit Brown DO Medicines: Monitored Anesthesia Care Patient Profile: This is an 84 year old female. Refer to note in patient chart for documentation of history and physical. Patient has symptoms. Complications: No immediate complications. Procedure: Pre-Anesthesia Assessment: - Prior to the [...] patient has taken no anticoagulant or antiplatelet agents. ASA Grade Assessment: II - A patient [...] the mouth, and advanced to the duodenum and used to inject contrast into the bile duct and ventral pancreatic duct. The ERCP was accomplished without difficulty. The patient tolerated the procedure well. Scope In: 4:35:10 PM Scope Out: 5:07:44 PM Total Procedure Duration Time 0 hours 32 minutes 34 seconds Findings: The cable television line technician film was normal. The esophagus was successfully intubated under direct vision. The scope was advanced to a normal major papilla in the descending duodenum without detailed examination of the pharynx, larynx and associated structures, and upper GI tract. The upper GI tract was grossly normal. A long 0.025 inch Jagwire was passed into the biliary tree. The short-nosed traction sphincterotome was passed over the guidewire and the bile duct was then deeply cannulated. Contrast was injected. I personally interpreted the bile duct images. There was brisk flow of contrast through the ducts. Image quality was adequate. Contrast extended to the entire biliary tree. The lower third of the main bile duct and middle third of the main bile duct contained a single segmental stenosis 7 mm in length. The entire biliary tree except for the cystic duct and gallbladder and entire biliary tree were severely dilated, with a mass causing an obstruction. The largest diameter was 20 mm. A 5 mm biliary sphincterotomy was made with a braided traction (standard) sphincterotome using ERBE electrocautery. There was no post-sphincterotomy bleeding. The biliary tree was swept with a 12 mm balloon starting at the upper third of the main bile duct, middle third of the main bile duct, lower third of the main duct, bifurcation, left intrahepatic duct(s), left main hepatic duct, right intrahepatic duct(s) and right main hepatic duct. Pus was swept from the duct. Sludge was swept from the duct. All stones were removed. Debris was swept from the duct. One stent was removed from the biliary tree using a rat-toothed forceps and snare and sent for cytology. The stent was found to be occluded via the water column test. One 10 mm by 6 cm covered metal stent was placed 5 cm into the common bile duct. Bile flowed through the stent. The stent was in good position. 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 The stricture was malignant appearing. - The ent (more content not included)... Normal [facility] Eosinophil percentageOrdered By: Oniel Hernandez on 06-01-2025 Eosinophils/100 WBC (Bld) 1.6 % 0-5 [facility] Erythrocyte distribution wid th ratioOrdered By: Oniel Hernandez on 06-01-2025 Erythrocyte distribution width (RBC) [Ratio] 15.3 % High 11.6-14.6 [facility] Erythrocyte distribution wid th standard deviationOrdered By: Oniel Hernandez on 06-01-2025 Erythrocyte distribution width (RBC) [Ratio] 47.8 fl High 35.1-43.9 [facility] Glomerular filtration rate ( GFR) estimation/1.73 sq m using serum, plasma, or whole bOrdered By: Oniel Hernandez on 06-01-2025 GFR/1.73 sq M.predicted among non-blacks MDRD (S/P/Bld) [Vol rate/Area] 88 mL/min/{1.73_m2} >60 [facility] Comment on above: mL/min/1.73m2 CKD-EP I Creatinine Equation (2020) Hematocrit Auto (Bld) [Volum e fraction]Ordered By: Oniel Hernandez on 06-01-2025 Hematocrit (Bld) [Volume fraction] 31.0 % Low 37-47 [facility] Hemoglobin A1con 06-01-2025 HbA1c (Bld) [Mass fraction] 9.6 % High <=5.6 [facility] Comment on above: Result Comment: Norm al < 5.7 % Prediabetic 5.7 - 6.4 % Diabetic >or= 6.5 % Please note range changes. Performed By: #### L 501.6710, L3100.5017, L500.4050, L100.0100, L504.2610, L101.9900 #### [facility] [address] [place] [address], [address] Hemoglobin A1c percentageOrd ered By: Perez Weeks on 06-01-2025 HbA1c (Bld) [Mass fraction] 9.6 % High <5.7 [facility] Comment on above: Normal < 5.7 % Predi abetic 5.7 - 6.4 % Diabetic >or= 6.5 % Please note range changes. Hemoglobin measurementOrdere d By: Oniel Hernandez on 06-01-2025 Hemoglobin (Bld) [Mass/Vol] 10.0 g/dL Low 12.0-15.0 [facility] Immature granulocytes/100 WB C Auto (Bld)Ordered By: Oniel Hernandez on 06-01-2025 Immature granulocytes/100 WBC (Bld) 0.200 % 0.0-0.9 [facility] Comment on above: IG% - Immature Granu locytes (promyelocytes, myelocytes and metamyelocytes) > 1% indicates that a LEFT SHIFT is Present. Laboratory - Chemistry and C hemistry - challengeOrdered By: Oniel Hernandez on 06-01-2025 AST [Catalytic activity/Vol] 49 U/L High <32 [facility] MCV (mean corpuscular volume ) determinationOrdered By: Oniel Hernandez on 06-01-2025 MCV (RBC) [Entitic vol] 85.2 fL 81-99 [facility] MR/POSTOP.ANEon 06-01-2025 MR/POSTOP.ANE [facility] Medical Records Department [address] [place] [address] Anesthesia Postop Eval I 06/01/25 1556 MR#: [id number] Acct: [id number] Name: TELMA TINEO Rep #: [id number] : 1940 84 From: Jr Kamara CRNA PCP: Dr. Henok Martinez MD Status:ADM IN Y Race: H Location: [place] [id number] Anesthesia: Postop Eval I Current Vital Signs Temperature: 97.3 F Pulse Rate: 71 Blood Pressure: 155/78 Respiratory Rate: 16 Pulse Ox: 97 Assessment Airway patent: Yes Spontaneous unlabored respirations: Yes nausea: No Vomiting: No Anesthesia Complication: No Fluid Hydration Crystalloid volume administer (ml): 300 Total IV fluid infused: 300 Progress Note Anesthesia document: Postop Eval 1 completed: Yes 06/01/25 155 Date Jr Kamara PUTTYING AND CALKING SUPERVISOR Cosigner Signature: Date CC: Signed Normal [facility] MR/[id number] 06-01-2025 MR/POSTOPAN2 [facility] Medical Records Department [address] [place] [address] Anesthesia Postop Eval II 06/01/252010 MR#: [id number] Acct: [id number] Name: TELMA TINEO Rep #: [id number] : 1940 84 From: Perez Weeks MD PCP: Dr. Henok Martinez MD Status:ADM IN Y Race: H Location: [place] [address] Anesthesia Postop Eval I Sum Postop Eval Completion status Anesthesia document: Postop Eval 1 completed: Yes Anesthesia Postop Eval I Summary Anesthesia Postop Eval I Summary: Anesthesia Postop Eval I: Assessment Summary Airway patent Yes 06/01/25 15:56 PUTTYING AND CALKING SUPERVISOR.TNES Spontaneous unlabored Yes 06/01/25 15:56 PUTTYING AND CALKING SUPERVISOR.TNES respirations Mental status nausea No 06/01/25 15:56 PUTTYING AND CALKING SUPERVISOR.TNES Vomiting No 06/01/25 15:56 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 Postop Eval I: Fluid Summary Crystalloid volume administer 300 06/01/25 15:56 PUTTYING AND CALKING SUPERVISOR.TNES (ml) Colloids volume administered ( ml) Blood Product volume administered (ml) Total IV fluid infused 300 06/01/25 15:56 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 Postop Eval I: Summary Notes Anesthesia Complication No 06/01/25 15:56 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 Complication Comment: Post-operative progress note Anesthesia: Postop Eval II Evaluation Mental status: Awake and Calm Pain Level: 1 nausea: No Vomiting: No Complications Anesthesia Complication: No 06/01/252010 Date Perez Lui Signature: Date CC: Signed Normal [facility] Mean corpuscular hemoglobin (MCH) determinationOrdered By: Oniel Hernandez on 06-01-2025 MCH (RBC) [Entitic mass] 27.5 pg 27.0-32.0 [facility] Mean corpuscular hemoglobin concentration (MCHC) determinationOrdered By: Oniel Hernandez on 06-01-2025 MCHC (RBC) [Mass/Vol] 32.3 g/dL 32-36 [facility] Mean platelet volume determi nationOrdered By: Oniel Hernandez on 06-01-2025 Platelet mean volume (Bld) [Entitic vol] 12.7 fL High 6.2-12.0 [facility] Monocyte percentageOrdered B y: Oniel Hernandez on 06-01-2025 Monocytes/100 WBC (Bld) 15.3 % High 0-10 [facility] Neutrophil percentageOrdered By: Oniel Hernandez on 06-01-2025 Neutrophils/100 WBC (Bld) 71.6 % High 47-70 [facility] Nucleated red blood cell per centageOrdered By: Oniel Hernandez on 06-01-2025 Nucleated RBC/100 WBC (Bld) [Ratio] 0 % 0-5 [facility] Platelet countOrdered By: Simeon Hernandez on 06-01-2025 Platelets (Bld) [#/Vol] 180 10*3/uL 150-450 [facility] Potassium measurement (mass/ volume)Ordered By: Oniel Hernandez on 06-01-2025 Potassium (Unsp spec) [Mass/Vol] 3.1 mmol/L Low 3.3-5.1 [facility] RBC Auto (Bld) [#/Vol]Ordere d By: Oniel Hernandez on 06-01-2025 RBC (Bld) [#/Vol] 3.64 10*6/uL Low 4.2-5.4 [facility] Serum creatinine measurement (mass/volume)Ordered By: Oniel Hernandez on 06-01-2025 Creatinine [Mass/Vol] 0.63 mg/dL Low 0.70-1.20 [facility] Serum globulin measurementOr dered By: Oniel Hernandez on 06-01-2025 Globulin (S) [Mass/Vol] 2.9 g/dL 2.2-4.2 [facility] Serum glucose measurement (m ass/volume)Ordered By: Oniel Hernandez on 06-01-2025 Glucose [Mass/Vol] 171 mg/dL High 70-99 [facility] Serum or plasma alanine mendoza otransferase (ALT) measurementOrdered By: Oniel Hernandez on 06-01-2025 ALT [Catalytic activity/Vol] 95 U/L High <35 [facility] Serum or plasma albumin froylan urement (mass/volume)Ordered By: Oniel Hernandez on 06-01-2025 Albumin [Mass/Vol] 3.3 g/dL Low 3.4-4.8 [facility] Serum or plasma albumin/glob ulin mass ratioOrdered By: Oniel Hernandez on 06-01-2025 Albumin/Globulin [Mass ratio] 1.2 {ratio} 0.9-2.4 [facility] Serum or plasma alkaline charli sphatase measurementOrdered By: Oniel Hernandez on 06-01-2025 ALP [Catalytic activity/Vol] 339 U/L High 35-104 [facility] Serum or plasma calcium froylan urement (mass/volume)Ordered By: Oniel Hernandez on 06-01-2025 Calcium [Mass/Vol] 8.8 mg/dL 7.6-11.0 [facility] Serum or plasma urea nitroge n measurement (mass/volume)Ordered By: Oniel Hernandez on 06-01-2025 Urea nitrogen [Mass/Vol] 5 mg/dL 4-19 [facility] Sodium levelOrdered By: John Hernandez on 06-01-2025 Sodium [Moles/Vol] 139 mmol/L 133-145 [facility] Special Stain Group IIon Special Stain Group II --------- Patient Age/Sex Location Account Attending Physician TELMA TINEO 84/F MS3 [id number] Dr. Oniel Santana MD Specimen: [id number] Received: 06/01/25 Status: AYLA Fuentes Num: [id number] Spec Type: Fluid Subm Dr: Mohit Brown DO HEADER OPERATION: ERCP, stent replacement, balloon dilation PRE-OP DIAGNOSIS: Cholangiolitis TISSUE SUBMITTED: A- Biliary stent for cytology DIAGNOSIS CYTOLOGY A. Biliary stent (cytospin, cellblock): - Essentially acellular specimen. - Bile pigments with abundant bacteria noted. CYTOLOGY STUDY Slides are reviewed. CYTOLOGY GROSS A. Received is 12cm blue stent labeled with the patient's name and and designated per the requisition as Biliary stent. Submitted for cytology and cell block preparation. Mr 06/02/2025 CPT: 22956,69558 Signed (signature on file) Dr. Elle Thakkar MD 06/17/25 1049 Normal [facility] Comment on above: Performed By: #### L 503.6005 #### [facility] [address] [place], [place], [id number] Total proteinOrdered By: Candido Hernandez on 06-01-2025 Protein [Mass/Vol] 6.2 g/dL 5.9-8.4 [facility] White blood cell (WBC) count Ordered By: Oniel Hernandez on 06-01-2025 WBC (Bld) [#/Vol] 6.3 10*3/uL 4.4-11.0 [facility] Electrocardiogram reportOrde red By: Zachary Sarabia on 05-31-2025 EKG study [facility] Cardiovascular Services [address] [place] [address] 12 Lead EKG 05/30/25 2216 MR#: [id number] Acct: [id number] Name: TELMA TINEO Rep #:[id number] : 1940 84 From: Zachary Sarabia MD Attending Dr: Dr. Jacoby Dunlap DO Status: ADM IN Ordering Dr: Yeyo Valentine DO Date: 5 [place] [facility] [place] F H Admitted: 05/31/25 Test Reason : GEN ILL Blood Pressure : */* mmHG Vent. Rate : 91 BPM Atrial Rate : * BPM P-R Int : * ms QRS Dur : 86 ms QT Int : 348 ms P-R-T Axes : * -10 137 degrees QTcB Int : 428 ms Atrial fibrillation Moderate voltage criteria for LVH, may be normal variant ( R in aVL , [place] product ) ST & T wave abnormality, consider anterolateral ischemia Abnormal ECG Confirmed by ZACHARY SARABIA MD ([id number]), managing editor CARLOS HARRIS ([id number]) on 05/31/2025 9:49:55 AM Referred By: Confirmed By: ZACHARY SARABIA MD 05/31/25 0949 Date _ Zachary Sarabia MD CC: Dr. Jacoby Dunlap DO; Dr. Yeyo Valentine DO; Dr. Henok Martinez MD ~ Signed [facility] Work Phone: H AND P Exam - Hospitaliston 05-31-2025 H&P Exam - Hospitalist [facility] Medical Records Department [address] [place] [address] H P Exam - Hospitalist 05/31/25 0327 MR#: [id number] Acct: [id number] Name: TELMA TINEO Rep #: [id number] : 1940 84 From: Oniel Golden DO PCP: Dr. Henok Martinez MD Status:ADM IN [place] [facility] [id number] [facility] Date of Admission: 05/31/25 Date of Service: 05/31/25 Chief Complaint: Fever and Abdominal Pain. HPI Narrative TELMA TINEO, is a 84 F with a past medical history of essential hypertension; on losartan, metoprolol BID and amlodipine, hyperlipidemia; on atorvastatin, overweight; with BMI of 29.9 this admission, remote history of tobacco abuse (quit 50+ years ago), DM-2; on 10U of 70/30 insulin daily, chronic atrial fibrillation; on apixaban, history of TIA/CVA x 2, mild cognitive impairment, history of Lundberg's palsy, history of Right atrial mass, history of asthma, history of appendectomy, history of uterine cancer, history of anoplasty, history of bladder surgery, history of hemorrhoidectomy, history of hysterectomy, history of blood transfusion, GERD; on pantoprazole, OA; with chronic neck pain and previous admission here from January 10, 2025 to January 11, [address] evidence of dilated hepatic and pancreatic [...] She was then arranged for transfer to [facility] with patient confirmed to have pancreatic cancer; with subsequent pancreatic duct placed and patient started on chemotherapy - but then stopped her treatment 2 months ago because of side effects who presents to [facility] ER complaining of fever and abdominal pain. Ms. Tineo reports her symptoms began approximately 1 day prior to admission with the abrupt-onset abdominal pain with fever and nausea. She states her urine is darker than normal and the abdominal discomfort is mild and generalized. She states she just returned from [place] 8 days ago and was feeling well apparently using that visit the sake about her family members. In the ER she was noted to have severe Hyperbilirubinemia of 4.82 mg/dL along with evidence of Transaminitis; with AST 135 units/L, ALT 195 units/L and alkaline phosphatase 166 units/L suspected to be due to Acute Cholangitis in the setting of known Pancreatic Cancer with Leukocytosis of 13.9 K present on admission complicated by additional laboratory evidence of mild Hyponatremia of 131 mmol/L and mild Hypokalemia of 3.1 mmol/L with CT scan of the abdomen and pelvis revealing unremarkable liver and gallbladder with stable 5 mm liver hypodensity with biliary stent in good position and CBD is dilated up to 2 cm in cross-section with pancreatic atrophy and history of pancreatic head mass which is not definitely seen, possibly indicating response to treatment but stable periportal adenopathy that is nonspecific. The ER physician spoke directly with patient and multiple family members and they are agreeable to conservative treatment but do not want aggressive care or to transfer to a tertiary care center with the understanding that patient has cancer for which she is already abandoned treatment due to adverse side effects from chemotherapy. Therefore, palliative care will be consulted to see this patient this admission with help appreciated in advance. She was then admitted to the general medical floor for ongoing care for state that is expected to extend beyond 2 midnights. [facility] Medical History (Updated 05/31/25 @ 04:[address] Oniel Golden, DO) Type 2 diabetes mellitus with hyperglycemia Transaminitis Hyperbilirubinemia Pancreatic mass History of uterine cancer Overweight (BMI 25.0-29.9) Jaundice Elevated lipase Mass of head of pancreas Atrial fibrillation Neck pain, bilateral History of TIA (transient ischemic attack) Stroke/cerebrovascular accident Essential hypertension Complaint of melena Transient ischemic attack (03/2021) History of Lundberg's palsy GERD (gastroesophageal reflux disease) History of cancer History of blood transfusion Right atrial mass Former smoker Asthma Diabetes mellitus, type 2 Home Medications ???Medication ???Instructions ???Recorded ???Last Taken ???Type pantoprazole 40 mg tablet,delayed 40 mg PO DAILY gerd #90 tabs 11/17 Unknown Rx release a (more content not included)... Normal [facility] Lactic Acidon 05-31-2025 Lactate [Moles/Vol] 1.6 mmol/L Normal 0.0-2.0 [facility] Comment on above: Order Comment: Y Performed By: #### L 503.6005 #### [facility] [address] [place], [place], [id number] Lipaseon 05-31-2025 Lipase [Catalytic activity/Vol] 49 U/L Normal 13-75 [facility] Comment on above: Result Comment: Kisha kimbrough note: LIPASE revised reference range effective 23. New Lipase methodology. Expected to produce lower values than the previous assay method. NEW Reference Range: 13 - 75 U/L Performed By: #### L 501.2450 #### [facility] [address] [facility] [address] [place], [place], [id number] MR/CON.PCM.GIon 05-31-2025 MR/CON.PCM.GI [facility] Medical Records Department [address] [place] [address] Consultation - GI 05/31/25 1904 MR#: [id number] Acct: [id number] Name: TELMA TINEO Rep #: [id number] : 1940 84 From: Mohit Brown DO PCP: Dr. Henok Martinez MD Status:ADM [facility] Consult Data Date of Consult: 05/31/25 HPI Narrative HPI Narrative: TELMA TINEO is a 84 F who presents with fatigue, weakness, darkening urine and jaundice. She was on previous admission where she presented with painless jaundice and a bilirubin of 9. - Previous CT of the abdomen pelvis in January 2025 - evidence of dilated hepatic and pancreatic ducts [...] 224 units/L suggestive of possible early pancreatitis She was then arranged for transfer to [facility] with patient confirmed to have pancreatic cancer; with subsequent pancreatic duct placed and patient started on chemotherapy - but then stopped her treatment 2 months ago because of side effects who presents. Yesterday in the ER she was noted to have severe Hyperbilirubinemia of 4.82 mg/dL along with evidence of Transaminitis; with AST 135 units/L, ALT 195 units/L and alkaline phosphatase 166 units/L suspected to be due to Acute Cholangitis in the setting of known Pancreatic Cancer. - Current CT scan of the abdomen and pelvis 05/31/2025 - revealing unremarkable liver and gallbladder with stable 5 mm liver hypodensity with biliary stent in good position and CBD is dilated up to 2 cm in cross-section with pancreatic atrophy and history of pancreatic head mass which is not definitely seen, possibly indicating response to treatment but stable periportal adenopathy that is nonspecific. [facility] Medical History Type 2 diabetes mellitus with hyperglycemia Transaminitis Hyperbilirubinemia Pancreatic mass History of uterine cancer Overweight (BMI 25.0-29.9) Jaundice Elevated lipase Mass of head of pancreas Atrial fibrillation Neck pain, bilateral History of TIA (transient ischemic attack) Stroke/cerebrovascular accident Essential hypertension Complaint of melena Transient ischemic attack (03/2021) History of Lundberg's palsy GERD (gastroesophageal reflux disease) History of cancer History of blood transfusion Right atrial mass Former smoker Asthma Diabetes mellitus, type 2 Home Medications ???Medication ???Instructions ???Recorded ???Last Taken ???Type pantoprazole 40 mg tablet,delayed 40 mg PO DAILY gerd #90 tabs 11/17 Unknown Rx release atorvastatin 20 mg tablet 20 mg PO QHS hld 03/07/23 Unknown History losartan 100 mg tablet 100 mg PO DAILY bp 03/07/23 Unknow n History metoprolol tartrate 50 mg tablet 50 mg PO BID heart 11/21/23 Unknow n History apixaban 5 mg tablet 5 mg PO BID blood thinner #180 tab s 04/28/24 Unknown Rx amlodipine 10 mg tablet 10 mg PO DAILY bp #90 tabs 5 Unknown Rx Allergy/AdvReac Type Severity Reaction Status [...] hemorrhoids, loose stools, melena, nausea, odynophagia, rectal bleedi (more content not included)... Normal [facility] Magnesiumon 05-31-2025 Magnesium [Mass/Vol] 1.8 mg/dL Normal 1.5-2.2 [facility] Comment on above: Performed By: #### L 501.6710, L3100.5017, L500.4050, L100.0100, L504.2610, L101.9900 #### [facility] [address] [place], [address] Magnesium measurement (mass/ volume)Ordered By: Jacoby Dunlap on 05-31-2025 Magnesium (Unsp spec) [Mass/Vol] 1.8 mg/dL 1.5-2.2 [facility] Phosphoruson 05-31-2025 Phosphate [Mass/Vol] 1.9 mg/dL Low 2.7-4.5 [facility] Comment on above: Performed By: #### L 501.6710, L3100.5017, L500.4050, L100.0100, L504.2610, L101.9900 #### [facility] [address] [place], [address] 12 Lead EKGon 05-30-2025 12 Lead EKG [facility] Cardiovascular Services [address] [place] [address] 12 Lead EKG 05/30/25 2216 MR#: [id number] Acct: [id number] Name: TELMA TINEO Rep #: [id number] : 1940 84 From: Zachary Sarabia MD Attending Dr: Dr. Jacoby Dunlap DO Status : ADM IN Ordering Dr: Yeyo Valentine DO Date: 05/30/25 [place] [facility] [place]: F H Admitted: 05/31/25 Test Reason : GEN ILL Blood Pressure : */* mmHG Vent. Rate : 91 BPM Atrial Rate : * BPM P-R Int : * ms QRS Dur : 86 ms QT Int : 348 ms P-R-T Axes : * -10 137 degrees QTcB Int : 428 ms Atrial fibrillation Moderate voltage criteria for LVH, may be normal variant ( R in aVL , Wali product ) ST T wave abnormality, consider anterolateral ischemia Abnormal ECG Confirmed by ZACHARY SARABIA MD ([id number]), managing editor CARLOS HARRIS ([id number]) on 05/31/2025 9:49:55 AM Referred By: Confirmed By: ZACHARY SARABIA MD 05/31/25 0949 Date Zachary Sarabia MD CC: Dr. Jacoby Dunlap DO; Dr. Yeyo Valentine DO; Dr. Henok Martinez MD Signed Normal [facility] Absolute lymphocyte countOrd ered By: Yeyo Valentine on 05-30-2025 Lymphocytes Auto (Unsp spec) [#/Vol] 0.46 10*3/uL Low 0.83-4.51 [facility] Absolute neutrophil countOrd ered By: Yeyo Valentine on 05-30-2025 Neutrophils (Bld) [#/Vol] 11.7 10*3/uL High 2.0-7.7 [facility] Anion gap in Serum or Plasma Ordered By: Yeyo Valentine on 05-30-2025 Anion gap [Moles/Vol] 14 mmol/L 5-15 [facility] Automated lymphocyte count a s percentage of total leukocytesOrdered By: Yeyo Valentine on 05-30-2025 Lymphocytes/100 WBC Auto (Unsp spec) 3.3 % Low 19-41 [facility] BUN/creatinine ratioOrdered By: Yeyo Valentine on 05-30-2025 Urea nitrogen/Creatinine [Mass ratio] 12.0 mg/mg 10-20 [facility] Basophil percentageOrdered B y: Yeyo Valentine on 05-30-2025 Basophils/100 WBC (Bld) 0.1 % 0-1 [facility] Bilirubin Test strip Ql (U)O rdered By: Yeyo Valentine on 05-30-2025 Bilirubin Ql (U) Negative Negative [facility] Bilirubin, totalOrdered By: Yeyo Valentine on 05-30-2025 Bilirubin [Mass/Vol] 4.82 mg/dL High 0.00-1.30 [facility] Blood cultureOrdered By: Gerard Valentine on 05-30-2025 Bacteria identified Cx Nom (Bld) No growth in 5 days. [facility] Bacteria identified Cx Nom (Bld) No growth in 5 days. [facility] Blood manual differential co mment interpretation (narrative result)Ordered By: Yeyo Valentine on 05-30-2025 Manual differential comment Jimenez (Bld) [Interp] SCANNED [facility] CBC W/Diff, Automatedon SMEAR COMMENT SCANNED Normal [facility] Comment on above: Performed By: #### L 501.5600 #### [facility] [address] [place], [address] CT Chest, Abd, Pel w/Contras ton 05-30-2025 CT Chest, Abd, Pel w/Contrast [facility] Imaging Services [address] [place] [id number] Chest, Abd, Pel w/Contrast MR#: [id number] Acct: [id number] Name: TELMA TINEO Rep #: [id number] : 1940 F 84 From: Chanel Hinton MD PCP: Dr. Henok Martinez MD Status: REG ER Study: CT Chest, Abd, Pel w/Contrast Date of Exam: Exam# [id number] Ordering Dr: Yeyo Valentine DO PROCEDURE: CT [...] is dilated up to 2 cm cross-section. There is pancreatic atrophy. There is a history of [...] position. No abdominopelvic injury noted. Reading Location: [place] [address] CC: Dr. Yeyo Valentine DO; Dr. Henok Martinez MD Program Engagement Director: Signed Normal [facility] Carbon dioxide, total [Moles /volume] in Central venous bloodOrdered By: Yeyo Valentine on 05-30-2025 CO2 [Moles/Vol] 20.0 mmol/L Low 21.0-32.0 [facility] Chloride assayOrdered By: Ayan Valentine on 05-30-2025 Chloride [Moles/Vol] 97 mmol/L Low 98-108 [facility] Comprehensive Metabolic Prof ilon 05-30-2025 Albumin [Mass/Vol] 3.9 g/dL Normal 3.4-4.8 [facility] Comment on above: Performed By: #### L 501.2450 #### [facility] [address] [place], [address] Albumin/Globulin [Mass ratio] 1.1 {ratio} Normal 0.9-2.4 [facility] Comment on above: Performed By: #### L 501.2450 #### [facility] [address] [place], [address] ALK PHOS 466 U/L High 35-104 [facility] Comment on above: Performed By: #### L 501.2450 #### [facility] [address] [place], [address] ALT [Catalytic activity/Vol] 195 U/L High <=34 [facility] Comment on above: Performed By: #### L 501.2450 #### [facility] [address] [place], [address] AST [Catalytic activity/Vol] 135 U/L High <=31 [facility] Comment on above: Performed By: #### L .0 #### [facility] [address] [place], [address] Bilirubin [Mass/Vol] 4.82 mg/dL High 0.00-1.30 [facility] Comment on above: Performed By: #### L 501.0 #### [facility] [address] [place], [address] BUN/CRE 12.0 RATIO Normal 10-20 [facility] Comment on above: Performed By: #### L 501.0 #### [facility] [address] [place], [address] Calcium [Mass/Vol] 9.1 mg/dL Normal 7.6-11.0 [facility] Comment on above: Performed By: #### L 501.2449 #### [facility] [address] [place], [address] Chloride [Moles/Vol] 97 mmol/L Low 98-108 [facility] Comment on above: Performed By: #### L 501.0 #### [facility] [address] [place], [address] CO2 [Moles/Vol] 20.0 mmol/L Low 21.0-32.0 [facility] Comment on above: Performed By: #### L 501.2450 #### [facility] [address] [place], [address] Creatinine [Mass/Vol] 0.74 mg/dL Normal 0.70-1.20 [facility] Comment on above: Performed By: #### L 501.0 #### [facility] [address] [place], [address] ECRCL 45.50 ml/min Low 50-250 [facility] Comment on above: Performed By: #### L 501.2450 #### [facility] [address] [place], [address] GAP 14 Normal 5-15 [facility] Comment on above: Performed By: #### L 501.2450 #### [facility] [address] [place], [address] GFR/1.73 sq M.predicted among non-blacks MDRD (S/P/Bld) [Vol rate/Area] 80 mL/min/{1.73_m2} Normal >60 [facility] Comment on above: Result Comment: mL/m in/1.73m2 CKD-EPI Creatinine Equation (2020) Performed By: #### L 501.2450 #### [facility] [address] [place], [address] Globulin (S) [Mass/Vol] 3.5 g/dL Normal 2.2-4.2 [facility] Comment on above: Performed By: #### L 501.2450 #### [facility] [address] [place], [address] Glucose [Mass/Vol] 257 mg/dL High 70-99 [facility] Comment on above: Performed By: #### L 501.2450 #### [facility] [address] [place], [address] Potassium [Moles/Vol] 3.1 mmol/L Low 3.3-5.1 [facility] Comment on above: Performed By: #### L 501.2450 #### [facility] [address] [place], [address] Sodium [Moles/Vol] 131 mmol/L Low 133-145 [facility] Comment on above: Performed By: #### L 501.2450 #### [facility] [address] [place], [address] T PROT 7.3 g/dL Normal 5.9-8.4 [facility] Comment on above: Performed By: #### L 501.2450 #### [facility] [address] [place], [address] Urea nitrogen [Mass/Vol] 9 mg/dL Normal 4-19 [facility] Comment on above: Performed By: #### L 501.2450 #### [facility] [address] [place], [address] Emergency Department Summary on 05-30-2025 Emergency Department Summary [facility] Medical Records Department [address] [place] [address] Emergency Department Summary 05/30/25 MR#: [id number] Acct: [id number] Name: TELMA TINEO Rep #: [id number] : 1940 84 From: Yeyo Palencia PCP: Dr. Henok Martinez MD Status:REG ER [...] abdominal discomfort. No chest pains. Return from [place] 8 days ago was feeling well. History of A-fib on Eliquis. History of TIA coronary disease with stent in the past. She is on baby aspirin. Denies any sick contacts. Diabetic, ran out of her insulin 15 hours ago she is on 10 units of 70/30. Stent placed in her pancreatic duct in the past history of pancreatic cancer. Reports mild myalgias. [facility] Medical History Pancreatic mass History of uterine [...] Medications ???Medication ???Instructions ???Recorded ???Last Taken ???Type pantoprazole 40 mg tablet,delayed 40 mg PO DAILY gerd #90 tabs 11/17 Unknown Rx release atorvastatin 20 mg tablet 20 mg PO QHS 03/07/23 Unknown Hist ory losartan 100 mg tablet 100 mg PO DAILY 03/07/23 Unknown H istory metoprolol tartrate 50 mg tablet 50 mg PO BID 11/21/23 Unknown Hist ory apixaban 5 mg tablet 5 mg PO [...] Axillary Temporal Pulse Rate 74 76 74 (more content not included)... Normal [facility] Eosinophil percentageOrdered By: Yeyo Valentine on 05-30-2025 Eosinophils/100 WBC (Bld) 0.0 % 0-5 [facility] Erythrocyte distribution wid th ratioOrdered By: Yeyo Valentine on 05-30-2025 Erythrocyte distribution width (RBC) [Ratio] 14.9 % High 11.6-14.6 [facility] Erythrocyte distribution wid th standard deviationOrdered By: Yeyo Valentine on 05-30-2025 Erythrocyte distribution width (RBC) [Ratio] 44.9 fl High 35.1-43.9 [facility] Glomerular filtration rate ( GFR) estimation/1.73 sq m using serum, plasma, or whole bOrdered By: Yeyo Valentine on 05-30-2025 GFR/1.73 sq M.predicted among non-blacks MDRD (S/P/Bld) [Vol rate/Area] 80 mL/min/{1.73_m2} >60 [facility] Comment on above: mL/min/1.73m2 CKD-EP I Creatinine Equation (2020) Hematocrit Auto (Bld) [Volum e fraction]Ordered By: Yeyo Valentine on 05-30-2025 Hematocrit (Bld) [Volume fraction] 33.8 % Low 37-47 [facility] Hemoglobin measurementOrdere d By: Yeyo Valentine on 05-30-2025 Hemoglobin (Bld) [Mass/Vol] 11.1 g/dL Low 12.0-15.0 [facility] Immature granulocytes/100 WB C Auto (Bld)Ordered By: Yeyo Valentine on 05-30-2025 Immature granulocytes/100 WBC (Bld) 0.500 % 0.0-0.9 [facility] Comment on above: IG% - Immature Granu locytes (promyelocytes, myelocytes and metamyelocytes) > 1% indicates that a LEFT SHIFT is Present. Influenza virus A and B and SARS-CoV-2 (COVID-19) and Respiratory syncytial virus RNAOrdered By: Yeyo Valentine on 05-30-2025 SARS-CoV-2 (COVID-19) RNA GUNNER+probe Ql (Unsp spec) [facility] Ketones Test strip Ql (U)Ord ered By: Yeyo Valentine on 05-30-2025 Ketones Ql (U) Negative Negative [facility] - Chemistry and C hemistry - challengeOrdered By: Yeyo Valentine on 05-30-2025 AST [Catalytic activity/Vol] 135 U/L High <32 [facility] Lactic acid measurementOrder ed By: Yeyo Valentine on 05-30-2025 Lactate [Moles/Vol] 1.6 mmol/L 0.0-2.0 [facility] Lipase measurementOrdered By : Yeyo Valentine on 05-30-2025 Lipase [Catalytic activity/Vol] 49 U/L 13-75 [facility] Comment on above: Please note:LIPASE r evised reference range effective 23. New Lipase methodology. Expected to produce lower values than the previous assay method. NEW Reference Range: 13 - 75 U/L M100.678on 05-30-2025 M100.678 SARS-CoV-2 (COVID 19 ) Negative INFLUENZA A Negative INFLUENZA B Negative RSV PCR Negative Normal [facility] Comment on above: Performed By: #### L 002.7719 #### [facility] [address] [place], [address] MCV (mean corpuscular volume ) determinationOrdered By: Yeyo Valentine on 05-30-2025 MCV (RBC) [Entitic vol] 81.8 fL 81-99 [facility] Mean corpuscular hemoglobin (MCH) determinationOrdered By: Yeyo Valentine on 05-30-2025 MCH (RBC) [Entitic mass] 26.9 pg Low 27.0-32.0 [facility] Mean corpuscular hemoglobin concentration (MCHC) determinationOrdered By: Yeyo Valentine on 05-30-2025 MCHC (RBC) [Mass/Vol] 32.8 g/dL 32-36 [facility] Mean platelet volume determi nationOrdered By: Yeyo Valentine on 05-30-2025 Platelet mean volume (Bld) [Entitic vol] 12.7 fL High 6.2-12.0 [facility] Microscopic analysis of urin e for red blood cells (RBC)Ordered By: Yeyo Valentine on 05-30-2025 Microscopic analysis of urine for red blood cells (RBC) 0 SEEN /hpf 0-5 [facility] Monocyte percentageOrdered B y: Yeyo Valentine on 05-30-2025 Monocytes/100 WBC (Bld) 11.4 % High 0-10 [facility] Mucus LM Ql (Urine sed)Order ed By: Yeyo Valentine on 05-30-2025 Mucus Ql (Urine sed) 0 SEEN /hpf [facility] Neutrophil percentageOrdered By: Yeyo Valentine on 05-30-2025 Neutrophils/100 WBC (Bld) 84.7 % High 47-70 [facility] Nitrite Test strip Ql (U)Ord ered By: Yeyo Valentine on 05-30-2025 Nitrite Ql (U) Negative Negative [facility] Nucleated red blood cell per centageOrdered By: Yeyo Valentine on 05-30-2025 Nucleated RBC/100 WBC (Bld) [Ratio] 0 % 0-5 [facility] Platelet countOrdered By: Ayan Valentine on 05-30-2025 Platelets (Bld) [#/Vol] 185 10*3/uL 150-450 [facility] Potassium measurement (mass/ volume)Ordered By: Yeyo Valentine on 05-30-2025 Potassium (Unsp spec) [Mass/Vol] 3.1 mmol/L Low 3.3-5.1 [facility] Protein Test strip Ql (U)Ord ered By: Yeyo Valentine on 05-30-2025 Protein Ql (U) 30 mg/dl High Negative [facility] RBC Auto (Bld) [#/Vol]Ordere d By: Yeyo Valentine on 05-30-2025 RBC (Bld) [#/Vol] 4.13 10*6/uL Low 4.2-5.4 [facility] Serum creatinine measurement (mass/volume)Ordered By: Yeyo Valentine on 05-30-2025 Creatinine [Mass/Vol] 0.74 mg/dL 0.70-1.20 [facility] Serum globulin measurementOr dered By: Yeyo Valentine on 05-30-2025 Globulin (S) [Mass/Vol] 3.5 g/dL 2.2-4.2 [facility] Serum glucose measurement (m ass/volume)Ordered By: Yeyo Valentine on 05-30-2025 Glucose [Mass/Vol] 257 mg/dL High 70-99 [facility] Serum or plasma alanine mendoza otransferase (ALT) measurementOrdered By: Yeyo Valentine on 05-30-2025 ALT [Catalytic activity/Vol] 195 U/L High <35 [facility] Serum or plasma albumin froylan urement (mass/volume)Ordered By: Yeyo Valentine on 05-30-2025 Albumin [Mass/Vol] 3.9 g/dL 3.4-4.8 [facility] Serum or plasma albumin/glob ulin mass ratioOrdered By: Yeyo Valentine on 05-30-2025 Albumin/Globulin [Mass ratio] 1.1 {ratio} 0.9-2.4 [facility] Serum or plasma alkaline charli sphatase measurementOrdered By: Yeyo Valentine on 05-30-2025 ALP [Catalytic activity/Vol] 466 U/L High 35-104 [facility] Serum or plasma calcium froylan urement (mass/volume)Ordered By: Yeyo Valentine on 05-30-2025 Calcium [Mass/Vol] 9.1 mg/dL 7.6-11.0 [facility] Serum or plasma urea nitroge n measurement (mass/volume)Ordered By: Yeyo Valentine on 05-30-2025 Urea nitrogen [Mass/Vol] 9 mg/dL 4-19 [facility] Sodium levelOrdered By: Yeyo Meme on 05-30-2025 Sodium [Moles/Vol] 131 mmol/L Low 133-145 [facility] Squamous epithelial cells de tection in urine sediment by light microscopyOrdered By: Yeyo Meme on 05-30-2025 Epithelial cells.squamous LM Ql (Urine sed) 5-10 SEEN /hpf - [facility] Total proteinOrdered By: Gerard Valentine on 05-30-2025 Protein [Mass/Vol] 7.3 g/dL 5.9-8.4 [facility] Urinalysis, Completeon 05-30 BACTERIA 2+ /hpf Normal None Seen [facility] Comment on above: Order Comment: CLEAN CATCH Performed By: #### L 501.6710, L3100.5017, L500.4050, L100.0100, L504.2610, L101.9900 #### [facility] [address] [place], [place], [id number] EPI,SQUAMOUS 5-10 SEEN Normal 5-10 [facility] Comment on above: Order Comment: CLEAN CATCH Performed By: #### L 501.6710, L3100.5017, L500.4050, L100.0100, L504.2610, L101.9900 #### [facility] [address] [place], [place], [id number] BILIRUBIN URINE Negative Normal Negative [facility] Comment on above: Order Comment: CLEAN CATCH Performed By: #### L 501.6710, L3100.5017, L500.4050, L100.0100, L504.2610, L101.9900 #### [facility] [address] [place], [place], [id number] Clarity (U) Clear Normal Clear [facility] Comment on above: Order Comment: CLEAN CATCH Performed By: #### L 501.6710, L3100.5017, L500.4050, L100.0100, L504.2610, L101.9900 #### [facility] [address] [place], [address] Color (U) Yellow Normal Yellow [facility] Comment on above: Order Comment: CLEAN CATCH Performed By: #### L 501.6710, L3100.5017, L500.4050, L100.0100, L504.2610, L101.9900 #### [facility] [address] [place], [address] GLUCOSE, UR 1000 mg/dl Abnormal Normal [facility] Comment on above: Order Comment: CLEAN CATCH Performed By: #### L 501.6710, L3100.5017, L500.4050, L100.0100, L504.2610, L101.9900 #### [facility] [address] [place], [address] KETONE UR Negative Normal Negative [facility] Comment on above: Order Comment: CLEAN CATCH Performed By: #### L 501.6710, L3100.5017, L500.4050, L100.0100, L504.2610, L101.9900 #### [facility] [address] [place], [address] LEUK ESTERASE Negative Normal Negative [facility] Comment on above: Order Comment: CLEAN CATCH Performed By: #### L 501.6710, L3100.5017, L500.4050, L100.0100, L504.2610, L101.9900 #### [facility] [address] [place], [address] Nitrite Ql (U) Negative Normal Negative [facility] Comment on above: Order Comment: CLEAN CATCH Performed By: #### L 501.6710, L3100.5017, L500.4050, L100.0100, L504.2610, L101.9900 #### [facility] [address] [place], [address] OCCULT BLOOD-UR 25 /ul Abnormal Negative [facility] Comment on above: Order Comment: CLEAN CATCH Performed By: #### L 501.6710, L3100.5017, L500.4050, L100.0100, L504.2610, L101.9900 #### [facility] [address] [place], [address] pH UR 7.0 Normal 5.0 - 8.0 [facility] Comment on above: Order Comment: CLEAN CATCH Performed By: #### L 501.6710, L3100.5017, L500.4050, L100.0100, L504.2610, L101.9900 #### [facility] [address] [place], [address] PROT DIPSTX 30 mg/dl Abnormal Negative [facility] Comment on above: Order Comment: CLEAN CATCH Performed By: #### L 501.6710, L3100.5017, L500.4050, L100.0100, L504.2610, L101.9900 #### [facility] [address] [place], [address] SP.GR. DIPSTX 1.005 Normal 1.002-1.030 [facility] Comment on above: Order Comment: CLEAN CATCH Performed By: #### L 501.6710, L3100.5017, L500.4050, L100.0100, L504.2610, L101.9900 #### [facility] [address] [place], [address] UROBILI Normal Normal Normal [facility] Comment on above: Order Comment: CLEAN CATCH Performed By: #### L 501.6710, L3100.5017, L500.4050, L100.0100, L504.2610, L101.9900 #### [facility] [address] [place], [address] Mucus Ql (Urine sed) 0 SEEN Normal [facility] Comment on above: Order Comment: CLEAN CATCH Performed By: #### L 501.6710, L3100.5017, L500.4050, L100.0100, L504.2610, L101.9900 #### [facility] [address] [place], [address] RBC 0 SEEN Normal 0-5 [facility] Comment on above: Order Comment: CLEAN CATCH Performed By: #### L 501.6710, L3100.5017, L500.4050, L100.0100, L504.2610, L101.9900 #### [facility] [address] [place], [address] WBC 0 SEEN Normal 0-5 [facility] Comment on above: Order Comment: CLEAN CATCH Performed By: #### L 501.6710, L3100.5017, L500.4050, L100.0100, L504.2610, L101.9900 #### [facility] [address] [place], [address] Urine clarityOrdered By: Gerard Valentine on 05-30-2025 Clarity (U) Clear Clear [facility] Urine color determinationOrd ered By: Yeyo Valentine on 05-30-2025 Color (U) Yellow Yellow [facility] Urine glucose detectionOrder ed By: Yeyo Valentine on 05-30-2025 Glucose Ql (U) 1000 mg/dl High Normal [facility] Urine leukocyte esterase det ection by dipstickOrdered By: Yeyo Valentine on 05-30-2025 Leukocyte esterase Test strip Ql (U) Negative Negative [facility] Urine pHOrdered By: Yeyo Valentine on 05-30-2025 pH (U) 7.0 [pH] 5.0 - 8.0 [facility] Urine sediment bacteria coun t by microscopy (number/high power field)Ordered By: Yeyo Valentine on 05-30-2025 Bacteria LM.HPF (Urine sed) [#/Area] 2 /[HPF] None Seen [facility] Urine specific gravity measu rementOrdered By: Yeyo Valentine on 05-30-2025 Specific gravity (U) [Rel density] 1.005 1.002-1.030 [facility] Urine urobilinogen measureme ntOrdered By: Yeyo Valentine on 05-30-2025 Urobilinogen Ql (U) Normal mg/dl Normal [facility] White blood cell (WBC) count Ordered By: Yeyo Valentine on 05-30-2025 WBC (Bld) [#/Vol] 13.9 10*3/uL High 4.4-11.0 [facility] White blood cell countOrdere d By: Yeyo Valentine on 05-30-2025 White blood cell count 0 SEEN /hpf 0-5 [facility] CNPTOUTREACHon 05-26-2025 CNPTOUTREACH Normal [facility] CT ABD/PEL W IVCONon 025 CT ABD/PEL W IVCON Normal [facility] CT CHEST W IVCONon 5 CT CHEST W IVCON Normal [facility] CNOVSPon 05-25-2025 CNOVSP Normal [facility] CNPNon 05-25-2025 CNPN Normal [facility] Cancer Ag19-9 SerPl-aCncon 0 05-25-2025 Cancer Ag 19-9 Qn 121.0 [arb'U]/mL High <36.0 [facility] Comment on above: Order Comment: Speci men Type: BLOOD SPECIMENOrdering Facility: [facility] Address: [address] [place] [address] Result Comment: [facility] er antigen 19-9 test is used as an aid in monitoring response to treatment or recurrence in patients with established pancreatic, hepatobiliary, or gastrointestinal malignancies. Clinical correlation is required.The CA 19-9 Antigen test was performed using the [employer] DXI paramagnetic particle chemiluminescent immunoassay method. Results obtained with different assay methods or kits cannot be used interchangeably. Performed By: #### 2 4108-3 ####[facility] LABCLIA [id number] [place] [address] [place] Creatinine and Glomerular fi ltration rate.predicted panel (S/P/Bld)Ordered By: Angelia Paez on 05-25-2025 Creatinine [Mass/Vol] 0.59 mg/dL 0.58 - 0.96 mg/dL [facility] GFR/1.73 sq M.predicted among non-blacks MDRD (S/P/Bld) [Vol rate/Area] 89 mL/min/{1.73_m2} - PINF [facility] Comment on above: Estimated Glomerular Filtration [...] Interpretation and review of laboratory results Normal [facility] Creatinine and Glomerular fi ltration rate.predicted panel (S/P/Bld)on 05-25-2025 Creatinine [Mass/Vol] 0.59 mg/dL Normal 0.58-0.96 [facility] Comment on above: Order Comment: Speci men Type: BLOOD SPECIMENOrdering Facility: [facility] Address: [address] [place] [address] Performed By: #### 4 5066-8 ####[facility] [id number] [place] [address] [place] eGFRcr SerPlBld CKD-EPI 2020 89 mL/min/1.73m??? Normal >=60 [facility] Comment on above: Order Comment: Specbertrand stinson Type: BLOOD SPECIMENOrdering Facility: [facility] Address: [address] [place] [address] Result Comment: Kya mated Glomerular Filtration Rate [...] accurately reflect actual GFR. Performed By: #### 4 5066-8 ####[facility] CHILDRENNCLI [id number] [place] [address] [place] REFERRAL FOR ADDITIONAL BIOM ARKER AND MOLECULAR TESTINGOrdered By: Darien Starks on 05-25-2025 APMOLR [facility] Comment on above: Request has been rec eived for evaluation and the results will be issued separately. [facility] REFERRAL FOR ADDITIONAL BIOM ARKER AND MOLECULAR TESTINGon 05-25-2025 REFERRAL FOR ADDITIONAL BIOMARKER AND MOLECULAR TESTING Normal [facility] Comment on above: Order Comment: Speci men Type: TISSUE SPECIMENOrdering Facility: [facility] Address: [address] [place] [address] Result Comment: Requ est has been received for evaluation and the results will be issued separately. Performed By: #### A PMOL ####[facility] ERJICLEVELAND CLINIC MERCY HOSPITALKush [id number] [place] [id number] [place] CNPNon 05-13-2025 CNPN Normal [facility] CNPNon 04-08-2025 CNPN Normal [facility] CNOVon 04-06-[address] [facility] CNPNon 04-06-2025 CNPN Normal [facility] CNOVon 03-30-2025 CNOV Normal [facility] XR CHEST 2V FRONTAL/LATon XR CHEST 2V FRONTAL/LAT Normal [facility] CNPNon 03-15-2025 CNPN Normal [facility] CNPTOUTREACHon 03-10-2025 CNPTOUTREACH Normal [facility] CNPNon 03-02-2025 CNPN Normal [facility] CNOVon 02-24-2025 CNOV Normal [facility] CNPNon 02-23-2025 CNPN Normal [facility] CBC W Auto Differential pane l (Bld)on 02-22-2025 Basophils (Bld) [#/Vol] 0.12 10*3/uL High [facility] Basophils/100 WBC (Bld) 1.2 % [facility] Differential cell count method Nom (Bld) Auto [facility] Eosinophils (Bld) [#/Vol] 0.1 10*3/uL [facility] Eosinophils/100 WBC (Bld) 1 % [facility] Erythrocyte distribution width (RBC) [Ratio] 15.2 % High 11.5 - 15.0 % [facility] Hematocrit (Bld) [Volume fraction] 31.5 % Low 36.0 - 46.0 % [facility] Hemoglobin (Bld) [Mass/Vol] 10.3 g/dL Low 11.5 - 15.5 g/dL [facility] Immature granulocytes (Bld) [#/Vol] 0.19 10*3/uL High NINF [facility] Immature granulocytes/100 WBC (Bld) 1.9 % [facility] Interpretation and review of laboratory results Abnormal [facility] Lymphocytes (Bld) [#/Vol] 1.57 10*3/uL [facility] Lymphocytes/100 WBC (Bld) 16 % [facility] MCH (RBC) [Entitic mass] 29.6 pg 26.0 - 34.0 pg [facility] MCHC (RBC) [Mass/Vol] 32.7 g/dL 30.5 - 36.0 g/dL [facility] MCV (RBC) [Entitic vol] 90.5 fL 80.0 - 100.0 fL [facility] Monocytes (Bld) [#/Vol] 1.28 10*3/uL High [facility] Monocytes/100 WBC (Bld) 13 % [facility] Neutrophils (Bld) [#/Vol] 6.58 10*3/uL [facility] Neutrophils/100 WBC (Bld) 66.9 % [facility] Nucleated RBC (Bld) [#/Vol] [facility] Nucleated RBC/100 WBC (Bld) [Ratio] 0 % /100 WBC [facility] Platelet mean volume (Bld) [Entitic vol] 10.2 fL 9.0 - 12.7 fL [facility] Platelets (Bld) [#/Vol] 677 10*3/uL High [facility] RBC (Bld) [#/Vol] 3.48 10*6/uL Low 3.90 - 5.2 0 m/uL [facility] WBC (Bld) [#/Vol] 9.84 10*3/uL [facility] Basophils (Bld) [#/Vol] 0.12 10*3/uL High <0.11 [facility] Comment on above: Order Comment: Speci men Type: BLOOD SPECIMENOrdering Facility: [facility] Address: [address] [place] [address] Performed By: #### 5 7021-8 ####[facility] MILLWNCLIA [id number] [place] [address] [place] Basophils/100 WBC (Bld) 1.2 % Normal [facility] Comment on above: Order Comment: Speci men Type: BLOOD SPECIMENOrdering Facility: [facility] Address: [address] [place] [address] Performed By: #### 5 7021-8 ####[facility] FOR CHILDRENNCLIA [id number] [place] [address] [place] Differential cell count method Nom (Bld) Auto Normal [facility] Comment on above: Order Comment: Speci men Type: BLOOD SPECIMENOrdering Facility: [facility] Address: [address] [place] [address] Performed By: #### 5 7021-8 ####[facility] HOSPITALLIA [id number] [place] [address] [place] Eosinophils (Bld) [#/Vol] 0.10 10*3/uL Normal <0.46 [facility] Comment on above: Order Comment: Speci men Type: BLOOD SPECIMENOrdering Facility: [facility] Address: [address] [place] [address] Performed By: #### 5 7021-8 ####[facility] MILLWNCLIA [id number] [place] [address] [place] Eosinophils/100 WBC (Bld) 1.0 % Normal [facility] Comment on above: Order Comment: Speci men Type: BLOOD SPECIMENOrdering Facility: [facility] Address: [address] [place] [address] Performed By: #### 5 7021-8 ####[facility] MILLWNCLIA [id number] [place] [address] [place] Erythrocyte distribution width (RBC) [Ratio] 15.2 % High 11.5-15.0 [facility] Comment on above: Order Comment: Speci men Type: BLOOD SPECIMENOrdering Facility: [facility] Address: [address] [place] [address] Performed By: #### 5 7021-8 ####[facility] CHILDRENSANDRAPRIMARY CHILDR[facility] [id number] [place] [address] [place] Hematocrit (Bld) [Volume fraction] 31.5 % Low 36.0-46.0 [facility] Comment on above: Order Comment: Speci men Type: BLOOD SPECIMENOrdering Facility: [facility] Address: [address] [place] [address] Performed By: #### 5 7021-8 ####[facility] CHILDRENSANDRAKush [id number] [place] [address] [place] Hemoglobin (Bld) [Mass/Vol] 10.3 g/dL Low 11.5-15.5 [facility] Comment on above: Order Comment: Speci men Type: BLOOD SPECIMENOrdering Facility: [facility] Address: [address] [place] [address] Performed By: #### 5 7021-8 ####[facility] FOR CHILDRENYAYAA [id number] [place] [address] [place] Immature granulocytes (Bld) [#/Vol] 0.19 10*3/uL High <0.10 [facility] Comment on above: Order Comment: Speci men Type: BLOOD SPECIMENOrdering Facility: [facility] Address: [address] [place] [address] Performed By: #### 5 7021-8 ####[facility] CHILDRENNCLIA [id number] [place] [address] [place] Immature granulocytes/100 WBC (Bld) 1.9 % Normal [facility] Comment on above: Order Comment: Speci men Type: BLOOD SPECIMENOrdering Facility: [facility] Address: [address] [place] [address] Performed By: #### 5 7021-8 ####[facility] [id number] [place] [address] [place] Lymphocytes (Bld) [#/Vol] 1.57 10*3/uL Normal 1.00-4.00 [facility] Comment on above: Order Comment: Speci men Type: BLOOD SPECIMENOrdering Facility: [facility] Address: [address] [place] [address] Performed By: #### 5 7021-8 ####[facility] [id number] [place] [address] [place] Lymphocytes/100 WBC (Bld) 16.0 % Normal [facility] Comment on above: Order Comment: Speci men Type: BLOOD SPECIMENOrdering Facility: [facility] Address: [address] [place] [address] Performed By: #### 5 7021-8 ####[facility] [id number] [place] [address] [place] MCH (RBC) [Entitic mass] 29.6 pg Normal 26.0-34.0 [facility] Comment on above: Order Comment: Speci men Type: BLOOD SPECIMENOrdering Facility: [facility] Address: [address] [place] [address] Performed By: #### 5 7021-8 ####[facility] [id number] [place] [address] [place] MCHC (RBC) [Mass/Vol] 32.7 g/dL Normal 30.5-36.0 [facility] Comment on above: Order Comment: Speci men Type: BLOOD SPECIMENOrdering Facility: [facility] Address: [address] [place] [address] Performed By: #### 5 7021-8 ####[facility] FOR CHILDRENNCLIA [id number] [place] [address] [place] MCV (RBC) [Entitic vol] 90.5 fL Normal 80.0-100.0 [facility] Comment on above: Order Comment: Speci men Type: BLOOD SPECIMENOrdering Facility: [facility] Address: [address] [place] [address] Performed By: #### 5 7021-8 ####[facility] FOR CHILDRENNCA [id number] [place] [address] [place] Monocytes (Bld) [#/Vol] 1.28 10*3/uL High <0.87 [facility] Comment on above: Order Comment: Speci men Type: BLOOD SPECIMENOrdering Facility: [facility] Address: [address] [place] [address] Performed By: #### 5 7021-8 ####[facility] CHILDRENNCA [id number] [place] [address] [place] Monocytes/100 WBC (Bld) 13.0 % Normal [facility] Comment on above: Order Comment: Speci men Type: BLOOD SPECIMENOrdering Facility: [facility] Address: [address] [place] [address] Performed By: #### 5 7021-8 ####[facility] CHILDRENNCLIA [id number] [place] [address] [place] Neutrophils (Bld) [#/Vol] 6.58 10*3/uL Normal 1.45-7.50 [facility] Comment on above: Order Comment: Speci men Type: BLOOD SPECIMENOrdering Facility: [facility] Address: [address] [place] [address] Performed By: #### 5 7021-8 ####[facility] HOSPITALLIA [id number] [place] [address] [place] Neutrophils/100 WBC (Bld) 66.9 % Normal [facility] Comment on above: Order Comment: Speci men Type: BLOOD SPECIMENOrdering Facility: [facility] Address: [address] [place] [address] Performed By: #### 5 7021-8 ####[facility] [id number] [place] [address] [place] Nucleated RBC (Bld) [#/Vol] 10*3/uL Normal <0.01 [facility] Comment on above: Order Comment: Speci men Type: BLOOD SPECIMENOrdering Facility: [facility] Address: [address] [place] [address] Performed By: #### 5 7021-8 ####[facility] [id number] [place] [address] [place] Nucleated RBC/100 WBC (Bld) [Ratio] 0.0 /100 WBC Normal [facility] Comment on above: Order Comment: Speci men Type: BLOOD SPECIMENOrdering Facility: [facility] Address: [address] [place] [address] Performed By: #### 5 7021-8 ####[facility] [id number] [place] [address] [place] Platelet mean volume (Bld) [Entitic vol] 10.2 fL Normal 9.0-12.7 [facility] Comment on above: Order Comment: Speci men Type: BLOOD SPECIMENOrdering Facility: [facility] Address: [address] [place] [address] Performed By: #### 5 7021-8 ####[facility] CHILDRENNCLI [id number] [place] [address] [place] Platelets (Bld) [#/Vol] 677 10*3/uL High 150-400 [facility] Comment on above: Order Comment: Speci men Type: BLOOD SPECIMENOrdering Facility: [facility] Address: [facility] [place] [address] Performed By: #### 5 7021-8 ####[facility] CHILDRENNCLIA [id number] [place] [address] [place] RBC (Bld) [#/Vol] 3.48 10*6/uL Low 3.90-5.20 [facility] Comment on above: Order Comment: Speci men Type: BLOOD SPECIMENOrdering Facility: [facility] Address: [address] [place] [address] Performed By: #### 5 7021-8 ####[facility] CHILDRENNCA [id number] [place] [address] [place] WBC (Bld) [#/Vol] 9.84 10*3/uL Normal 3.70-11.00 [facility] Comment on above: Order Comment: Speci men Type: BLOOD SPECIMENOrdering Facility: [facility] Address: [address] [place] [address] Performed By: #### 5 7021-8 ####[facility] CHILDRENNCLIA [id number] [place] [address] [place] CNOVSPon 02-22-2025 CNOVSP Normal [facility] CNPNon 02-22-2025 CNPN Normal [facility] Comprehensive metabolic 2000 panelOrdered By: Angelia Paez on 02-22-2025 Albumin [Mass/Vol] 3.5 g/dL Low 3.9 - 4.9 g/dL [facility] ALP [Catalytic activity/Vol] 137 U/L High 34 - 123 U/L [facility] ALT [Catalytic activity/Vol] 26 U/L 7 - 38 U/L [facility] Anion gap [Moles/Vol] 9 mmol/L 8 - 15 mmol/L [facility] AST [Catalytic activity/Vol] 19 U/L 13 - 35 U/L [facility] Bilirubin [Mass/Vol] 0.8 mg/dL 0.2 - 1 .3 mg/dL [facility] Calcium [Mass/Vol] 9.1 mg/dL 8.5 - 10. 2 mg/dL [facility] Chloride [Moles/Vol] 101 mmol/L 98 - 10 7 mmol/L [facility] CO2 [Moles/Vol] 21 mmol/L Low 22 - 30 mmol/L [facility] Creatinine [Mass/Vol] 0.52 mg/dL Low 0.58 - 0.96 mg/dL [facility] GFR/1.73 sq M.predicted among non-blacks MDRD (S/P/Bld) [Vol rate/Area] 92 mL/min/{1.73_m2} - PINF [facility] Comment on above: Estimated Glomerular Filtration [...] 407 mg/dL High 74 - 99 mg/dL [facility] Comment on above: The [place] Diabete s Association (ADA) provides guidance for [...] Standards of Medical Care in Diabetes 2016, [place] Diabetes [employer]. Diabetes Care. 2016.39(Suppl 1). Interpretation and review of laboratory results Abnormal [facility] Potassium [Moles/Vol] 4.3 mmol/L 3.7 - 5.1 mmol/L [facility] Protein [Mass/Vol] 6.7 g/dL 6.3 - 8.0 g/dL [facility] Sodium [Moles/Vol] 131 mmol/L Low 136 - 144 mmol/L [facility] Urea nitrogen [Mass/Vol] 10 mg/dL 7 - 21 mg/dL [facility] Comprehensive metabolic 2000 panelon 02-22-2025 Albumin [Mass/Vol] 3.5 g/dL Low 3.9-4.9 [facility] Comment on above: Order Comment: Speci men Type: BLOOD SPECIMENOrdering Facility: [facility] Address: [address] [place] [address] Performed By: #### 2 4323-8 ####[facility] POINTWUTLIA [id number] [place] [address] [place] ALP [Catalytic activity/Vol] 137 U/L High 34-123 [facility] Comment on above: Order Comment: Speci men Type: BLOOD SPECIMENOrdering Facility: [facility] Address: [address] [place] [address] Performed By: #### 2 4323-8 ####[facility] HOSPITALLIA [id number] [place] [address] [place] ALT [Catalytic activity/Vol] 26 U/L Normal 7-38 [facility] Comment on above: Order Comment: Speci men Type: BLOOD SPECIMENOrdering Facility: [facility] Address: [address] [place] [address] Performed By: #### 2 4323-8 ####[facility] HOSPITALLIA [id number] [place] [address] [place] Anion gap [Moles/Vol] 9 mmol/L Normal 8-15 [facility] Comment on above: Order Comment: Speci men Type: BLOOD SPECIMENOrdering Facility: [facility] Address: [address] [place] [address] Performed By: #### 2 4323-8 ####[facility] CHILDRENNCLIA [id number] [place] [address] [place] AST [Catalytic activity/Vol] 19 U/L Normal 13-35 [facility] Comment on above: Order Comment: Speci men Type: BLOOD SPECIMENOrdering Facility: [facility] Address: [address] [place] [address] Performed By: #### 2 4323-8 ####[facility] [id number] [place] [address] [place] Bilirubin [Mass/Vol] 0.8 mg/dL Normal 0.2-1.3 [facility] Comment on above: Order Comment: Speci men Type: BLOOD SPECIMENOrdering Facility: [facility] Address: [address] [place] [address] Performed By: #### 2 4323-8 ####[facility] [id number] [place] [address] [place] Calcium [Mass/Vol] 9.1 mg/dL Normal 8.5-10.2 [facility] Comment on above: Order Comment: Speci men Type: BLOOD SPECIMENOrdering Facility: [facility] Address: [address] [place] [address] Performed By: #### 2 4323-8 ####[facility] [id number] [place] [address] [place] Chloride [Moles/Vol] 101 mmol/L Normal 98-107 [facility] Comment on above: Order Comment: Speci men Type: BLOOD SPECIMENOrdering Facility: [facility] Address: [address] [place] [address] Performed By: #### 2 4323-8 ####[facility] [id number] [place] [address] [place] CO2 [Moles/Vol] 21 mmol/L Low 22-30 [facility] Comment on above: Order Comment: Speci men Type: BLOOD SPECIMENOrdering Facility: [facility] Address: [address] [place] [address] Performed By: #### 2 4323-8 ####[facility] [id number] [place] [address] [place] Creatinine [Mass/Vol] 0.52 mg/dL Low 0.58-0.96 [facility] Comment on above: Order Comment: Dayron stinson Type: BLOOD SPECIMENOrdering Facility: [facility] Address: [address] [place] [address] Performed By: #### 2 4323-8 ####[facility] [id number] [place] [address] [place] Creatinine and Glomerular filtration rate.predicted panel (S/P/Bld) 92 mL/min/1.73m??? Normal >=60 [facility] Comment on above: Order Comment: Dayron stinson Type: BLOOD SPECIMENOrdering Facility: [facility] Address: [address] [place] [address] Result Comment: Kya mated Glomerular Filtration Rate [...] actual GFR. Performed By: #### 2 4323-8 ####[facility] HOSPITALLIA [id number] [place] [address] [place] Glucose [Mass/Vol] 407 mg/dL High 74-99 [facility] Comment on above: Order Comment: Dayron stinson Type: BLOOD SPECIMENOrdering Facility: [facility] Address: [address] [place] [address] Result Comment: The [place] Diabetes Association (ADA) provides guidance for cutoff [...] Standards of Medical Care in Diabetes 2016, [place] Diabetes Association. Diabetes Care. 2016.39(Suppl 1). Performed By: #### 2 4323-8 ####[facility] REJI MILLTOWNCLIA [id number] [place] [address] [place] Potassium [Moles/Vol] 4.3 mmol/L Normal 3.7-5.1 [facility] Comment on above: Order Comment: Speci men Type: BLOOD SPECIMENOrdering Facility: [facility] Address: [address] [place] [address] Performed By: #### 2 4323-8 ####[facility] POINTWNCLIA [id number] [place] [address] [place] Protein [Mass/Vol] 6.7 g/dL Normal 6.3-8.0 [facility] Comment on above: Order Comment: Speci men Type: BLOOD SPECIMENOrdering Facility: [facility] Address: [address] [place] [address] Performed By: #### 2 4323-8 ####[facility] POINTWUTLIA [id number] [place] [address] [place] Sodium [Moles/Vol] 131 mmol/L Low 136-144 [facility] Comment on above: Order Comment: Speci men Type: BLOOD SPECIMENOrdering Facility: [facility] Address: [address] [place] [address] Performed By: #### 2 4323-8 ####[facility] POINTWNCLIA [id number] [place] [address] [place] Urea nitrogen [Mass/Vol] 10 mg/dL Normal 7-21 [facility] Comment on above: Order Comment: Speci men Type: BLOOD SPECIMENOrdering Facility: [facility] Address: [facility] [place] [address] Performed By: #### 2 4323-8 ####[facility] REJI [facility]ENTERLI [id number] [place] [address] [place] XR CHEST 2V FRONTAL/LATon XR CHEST 2V FRONTAL/LAT Normal [facility] XR Chest PA and Lateralon IMPRESSION: Mild residual though decreased reticular opacities at the lung bases Program Engagement Director: AMBER Transcribe Date/Time: Feb 22 2025 11:18A Dictated by : ELOISA YANG MD This examination was interpreted and the report reviewed and electronically signed by: ELOISA YANG MD on Feb 22 2025 11:19AM [facility] DIVISION OF RADIOLOGY * * *Final Report* [...] humeral greater tuberosities. DIVISION OF RADIOLOGY Provider, [facility] - 02/22/2025 * * *Final Report* [...] decreased reticular opacities at the lung bases Program Engagement Director: AMBER Transcribe Date/Time: Feb 22 2025 11:18A Dictated by : ELOISA YANG MD This examination was interpreted and the report reviewed and electronically signed by: ELOISA YANG MD on Feb 22 2025 11:19AM EST [facility] Radiology Study observation (narrative) [facility] XR Chest PA and LateralOrder ed By: Ccf Provider on 02-22-2025 [facility] Lenin 02-15-2025 CNPN Telephone (MEXR) -- TELMA TINEO ([id number]) 1940 F Date Time Provider Department 02/15/25 RADHA LOUIS MEXR During your visit today, we recorded the [...] - Blood-Glucose Meter,Continuous (FREESTYLE TOLU 3 READER) [facility] Use to check blood sugar at least [...] once daily. - Blood Pressure Test Kit-Large (Villij ARM BP MONITOR) 1 Each once daily. [...] 05/20/2023 Impaired cognition [R41.89] 05/20/2023 Diagnosed: 05/20/2023 correction current use of anticoagulant therapy *05/20/2023 Diagnosed: [...] Encounter Status:Closed by RADHA LOUIS on 02/15/25 [facility] CNPN Normal [facility] CNPTOUTREACHon 02-15-2025 CNPTOUTREACH Normal [facility] Basic metabolic 2000 panelon 02-14-2025 Anion gap [Moles/Vol] 10 mmol/L Normal 8-15 [facility] Comment on above: Order Comment: Speci men Type: BLOOD SPECIMENOrdering Facility: [facility] Address: [address] [place] [address] Performed By: #### 2 4321-2 ####[facility] LABORATORYCLIA [id number] [place] [address] [place] Calcium [Mass/Vol] 8.3 mg/dL Low 8.5-10.2 [facility] Comment on above: Order Comment: Speci men Type: BLOOD SPECIMENOrdering Facility: [facility] Address: [address] [place] [address] Performed By: #### 2 4321-2 ####[facility] LABORATORYCLIA [id number] [place] [address] [place] Chloride [Moles/Vol] 102 mmol/L Normal 98-107 [facility] Comment on above: Order Comment: Speci men Type: BLOOD SPECIMENOrdering Facility: [facility] Address: [address] [place] [address] Performed By: #### 2 4321-2 ####[facility] LABORATORYCLIA [id number] [place] [address] [place] CO2 [Moles/Vol] 21 mmol/L Low 22-30 [facility] Comment on above: Order Comment: Speci men Type: BLOOD SPECIMENOrdering Facility: [facility] Address: [address] [place] [address] Performed By: #### 2 4321-2 ####[facility] LABORATORYCLIA [id number] [place] [address] [place] Creatinine [Mass/Vol] 0.54 mg/dL Low 0.58-0.96 [facility] Comment on above: Order Comment: Dayron shantell Type: BLOOD SPECIMENOrdering Facility: [facility] Address: [address] [place] [address] Performed By: #### 2 4321-2 ####[facility] LABORATORYCLIA [id number] [place] [address] [place] Creatinine and Glomerular filtration rate.predicted panel (S/P/Bld) 91 mL/min/1.73m??? Normal >=60 [facility] Comment on above: Order Comment: Dayron shantell Type: BLOOD SPECIMENOrdering Facility: [facility] Address: [address] [place] [address] Result Comment: Kya mated Glomerular Filtration Rate [...] actual GFR. Performed By: #### 2 4321-2 ####[facility] LABORATORYCLIA [id number] [place] [id number] [place] Glucose [Mass/Vol] 166 mg/dL High 74-99 [facility] Comment on above: Order Comment: Dayron shantell Type: BLOOD SPECIMENOrdering Facility: [facility] Address: [address] [place] [address] Result Comment: The [place] Diabetes Association (ADA) provides guidance for cutoff [...] Standards of Medical Care in Diabetes 2016, [place] Diabetes Association. Diabetes Care. 2016.39(Suppl 1). Performed By: #### 2 4321-2 ####[facility]ORATORYCLIA [id number] [place] [address] [place] Potassium [Moles/Vol] 3.6 mmol/L Low 3.7-5.1 [facility] Comment on above: Order Comment: Speci men Type: BLOOD SPECIMENOrdering Facility: [facility] Address: [address] [place] [address] Performed By: #### 2 4321-2 ####[facility] LABORATORYCLIA [id number] [place] [address] [place] Sodium [Moles/Vol] 133 mmol/L Low 136-144 [facility] Comment on above: Order Comment: Speci men Type: BLOOD SPECIMENOrdering Facility: [facility] Address: [address] [place] [address] Performed By: #### 2 4321-2 ####[facility] LABORATORYCLIA [id number] [address] STATES OF [facility] Urea nitrogen [Mass/Vol] 8 mg/dL Normal 7-21 [facility] Comment on above: Order Comment: Speci men Type: BLOOD SPECIMENOrdering Facility: [facility] Address: [address] [place] [address] Performed By: #### 2 4321-2 ####[facility] LABORATORYCLIA [id number] [address] [place] CBC W Auto Differential pane l (Bld)on 02-14-2025 Basophils (Bld) [#/Vol] 10*3/uL Normal <0.11 [facility] Comment on above: Order Comment: Speci men Type: BLOOD SPECIMENOrdering Facility: [facility] Address: [address] [place] [address] Performed By: #### 5 7021-8 ####[facility] LABORATORYCLIA [id number] [address] [place] Basophils/100 WBC (Bld) 0.7 % Normal [facility] Comment on above: Order Comment: Speci men Type: BLOOD SPECIMENOrdering Facility: [facility] Address: [address] [place] [address] Performed By: #### 5 7021-8 ####[facility]ORATORYCLIA [id number] [address] Differential cell count method Nom (Bld) Auto Normal [facility] Comment on above: Order Comment: Speci men Type: BLOOD SPECIMENOrdering Facility: [facility] Address: [address] [place] [address] Performed By: #### 5 7021-8 ####[facility] LABORATORYCLIA [id number] [address] Eosinophils (Bld) [#/Vol] 0.11 10*3/uL Normal <0.46 [facility] Comment on above: Order Comment: Speci men Type: BLOOD SPECIMENOrdering Facility: [facility] Address: [address] [place] [address] Performed By: #### 5 7021-8 ####[facility] LABORATORYCLIA [id number] [address] Eosinophils/100 WBC (Bld) 3.7 % Normal [facility] Comment on above: Order Comment: Speci men Type: BLOOD SPECIMENOrdering Facility: [facility] Address: [address] [place] [address] Performed By: #### 5 7021-8 ####[facility]ORATORYCLIA [id number] [address] Erythrocyte distribution width (RBC) [Ratio] 14.0 % Normal 11.5-15.0 [facility] Comment on above: Order Comment: Speci men Type: BLOOD SPECIMENOrdering Facility: [facility] Address: [address] [place] [address] Performed By: #### 5 7021-8 ####[facility]ORATORYCLIA [id number] [address] Hematocrit (Bld) [Volume fraction] 24.7 % Low 36.0-46.0 [facility] Comment on above: Order Comment: Speci men Type: BLOOD SPECIMENOrdering Facility: [facility] Address: [facility] [place] [address] Performed By: #### 5 7021-8 ####[facility]ATORYCLIA [id number] [address] [place] Hemoglobin (Bld) [Mass/Vol] 8.5 g/dL Low 11.5-15.5 [facility] Comment on above: Order Comment: Speci men Type: BLOOD SPECIMENOrdering Facility: [facility] Address: [address] [place] [address] Performed By: #### 5 7021-8 ####[facility] LABORATORYCLIA [id number] [address] [place] Immature granulocytes (Bld) [#/Vol] 0.08 10*3/uL Normal <0.10 [facility] Comment on above: Order Comment: Speci men Type: BLOOD SPECIMENOrdering Facility: [facility] Address: [address] [place] [address] Performed By: #### 5 7021-8 ####[facility] LABORATORYCLIA [id number] [address] [place] Immature granulocytes/100 WBC (Bld) 2.7 % Normal [facility] Comment on above: Order Comment: Speci men Type: BLOOD SPECIMENOrdering Facility: [facility] Address: [address] [place] [address] Performed By: #### 5 7021-8 ####[facility]ORATORYCLIA [id number] [address] [place] Lymphocytes (Bld) [#/Vol] 0.67 10*3/uL Low 1.00-4.00 [facility] Comment on above: Order Comment: Speci men Type: BLOOD SPECIMENOrdering Facility: [facility] Address: [address] [place] [address] Performed By: #### 5 7021-8 ####[facility]ORATORYCLIA [id number] [address] Lymphocytes/100 WBC (Bld) 22.6 % Normal [facility] Comment on above: Order Comment: Speci men Type: BLOOD SPECIMENOrdering Facility: [facility] Address: [address] [place] [address] Performed By: #### 5 7021-8 ####[facility] LABORATORYCLIA [id number] [address] [place] MCH (RBC) [Entitic mass] 31.0 pg Normal 26.0-34.0 [facility] Comment on above: Order Comment: Speci men Type: BLOOD SPECIMENOrdering Facility: [facility] Address: [address] [place] [address] Performed By: #### 5 7021-8 ####[facility] LABORATORYCLIA [id number] [address] [place] MCHC (RBC) [Mass/Vol] 34.4 g/dL Normal 30.5-36.0 [facility] Comment on above: Order Comment: Speci men Type: BLOOD SPECIMENOrdering Facility: [facility] Address: [address] [place] [address] Performed By: #### 5 7021-8 ####[facility] LABORATORYCLIA [id number] [address] [place] MCV (RBC) [Entitic vol] 90.1 fL Normal 80.0-100.0 [facility] Comment on above: Order Comment: Speci men Type: BLOOD SPECIMENOrdering Facility: [facility] Address: [address] [place] [address] Performed By: #### 5 7021-8 ####[facility] LABORATORYCLIA [id number] [address] Monocytes (Bld) [#/Vol] 0.68 10*3/uL Normal <0.87 [facility] Comment on above: Order Comment: Speci men Type: BLOOD SPECIMENOrdering Facility: [facility] Address: [address] [place] [address] Performed By: #### 5 7021-8 ####[facility]ORATORYCLIA [id number] [address] [place] Monocytes/100 WBC (Bld) 23.0 % Normal [facility] Comment on above: Order Comment: Speci men Type: BLOOD SPECIMENOrdering Facility: [facility] Address: [address] [place] [address] Performed By: #### 5 7021-8 ####[facility]ORATORYCLIA [id number] [place] [address] [place] Neutrophils (Bld) [#/Vol] 1.40 10*3/uL Low 1.45-7.50 [facility] Comment on above: Order Comment: Speci men Type: BLOOD SPECIMENOrdering Facility: [facility] Address: [address] [place] [address] Performed By: #### 5 7021-8 ####[facility]ORATORYCLIA [id number] [address] Neutrophils/100 WBC (Bld) 47.3 % Normal [facility] Comment on above: Order Comment: Speci men Type: BLOOD SPECIMENOrdering Facility: [facility] Address: [address] [place] [address] Performed By: #### 5 7021-8 ####[facility]ORATORYCLIA [id number] [address] [place] Nucleated RBC (Bld) [#/Vol] 10*3/uL Normal <0.01 [facility] Comment on above: Order Comment: Speci men Type: BLOOD SPECIMENOrdering Facility: [facility] Address: [address] [place] [address] Performed By: #### 5 7021-8 ####[facility]ATORYCLIA [id number] [address] [place] Nucleated RBC/100 WBC (Bld) [Ratio] 0.0 /[address] [facility] Comment on above: Order Comment: Speci men Type: BLOOD SPECIMENOrdering Facility: [facility] Address: [address] [place] [address] Performed By: #### 5 7021-8 ####[facility] LABORATORYCLIA [id number] [address] [place] Platelet mean volume (Bld) [Entitic vol] 11.4 fL Normal 9.0-12.7 [facility] Comment on above: Order Comment: Speci men Type: BLOOD SPECIMENOrdering Facility: [facility] Address: [address] [place] [address] Performed By: #### 5 7021-8 ####[facility] LABORATORYCLIA [id number] [address] [place] Platelets (Bld) [#/Vol] 192 10*3/uL Normal 150-400 [facility] Comment on above: Order Comment: Speci men Type: BLOOD SPECIMENOrdering Facility: [facility] Address: [address] [place] [address] Performed By: #### 5 7021-8 ####[facility] LABORATORYCLIA [id number] [place] [address] [place] RBC (Bld) [#/Vol] 2.74 10*6/uL Low 3.90-5.20 [facility] Comment on above: Order Comment: Speci men Type: BLOOD SPECIMENOrdering Facility: [facility] Address: [address] [place] [address] Performed By: #### 5 7021-8 ####[facility] LABORATORYCLIA [id number] [place] [address] [place] WBC (Bld) [#/Vol] 2.96 10*3/uL Low 3.70-11.00 [facility] Comment on above: Order Comment: Speci men Type: BLOOD SPECIMENOrdering Facility: [facility] Address: [address] [place] [address] Performed By: #### 5 7021-8 ####[facility] LABORATORYCLIA [id number] [address] [place] CNDSon 04-20-[address] [facility] THERAPY NTon 02-14-[address] [facility] Basic metabolic 2000 panelon 02-13-2025 Anion gap [Moles/Vol] 12 mmol/L Normal 8-15 [facility] Comment on above: Order Comment: Speci men Type: BLOOD SPECIMENOrdering Facility: [facility] Address: [address] [place] [address] Performed By: #### 2 4321-2 ####[facility] LABORATORYCLIA [id number] [place] [address] [place] Calcium [Mass/Vol] 8.2 mg/dL Low 8.5-10.2 [facility] Comment on above: Order Comment: Speci men Type: BLOOD SPECIMENOrdering Facility: [facility] Address: [address] [place] [address] Performed By: #### 2 4321-2 ####[facility] LABORATORYCLIA [id number] [place] [address] [place] Chloride [Moles/Vol] 101 mmol/L Normal 98-107 [facility] Comment on above: Order Comment: Speci men Type: BLOOD SPECIMENOrdering Facility: [facility] Address: [address] [place] [address] Performed By: #### 2 4321-2 ####[facility] LABORATORYCLIA [id number] [place] [address] [place] CO2 [Moles/Vol] 19 mmol/L Low 22-30 [facility] Comment on above: Order Comment: Speci men Type: BLOOD SPECIMENOrdering Facility: [facility] Address: [address] [place] [address] Performed By: #### 2 4321-2 ####[facility] LABORATORYCLIA [id number] [place] [address] [place] Creatinine [Mass/Vol] 0.61 mg/dL Normal 0.58-0.96 [facility] Comment on above: Order Comment: Speci men Type: BLOOD SPECIMENOrdering Facility: [facility] Address: [address] [place] [address] Performed By: #### 2 4321-2 ####[facility]PITALCLIA [id number] [place] [id number] [place] Creatinine and Glomerular filtration rate.predicted panel (S/P/Bld) 88 mL/min/1.73m??? Normal >=60 [facility] Comment on above: Order Comment: Dayron men Type: BLOOD SPECIMENOrdering Facility: [facility] Address: [address] [place] [address] Result Comment: Kya mated Glomerular Filtration Rate [...] actual GFR. Performed By: #### 2 4321-2 ####[facility] HOSPITALIA [id number] [place] [address] [place] Glucose [Mass/Vol] 168 mg/dL High 74-99 [facility] Comment on above: Order Comment: Dayron stinson Type: BLOOD SPECIMENOrdering Facility: [facility] Address: [address] [place] [address] Result Comment: The [place] Diabetes Association (ADA) provides guidance for cutoff [...] Standards of Medical Care in Diabetes 2016, [place] [employer]. Diabetes Care. 2016.39(Suppl 1). Performed By: #### 2 4321-2 ####[facility] LABORATORYIA [id number] [address] [place] Potassium [Moles/Vol] 3.7 mmol/L Normal 3.7-5.1 [facility] Comment on above: Order Comment: Speci men Type: BLOOD SPECIMENOrdering Facility: [facility] Address: [address] [place] [address] Performed By: #### 2 4321-2 ####[facility] LABORATORYCLIA [id number] [address] [place] Sodium [Moles/Vol] 132 mmol/L Low 136-144 [facility] Comment on above: Order Comment: Speci men Type: BLOOD SPECIMENOrdering Facility: [facility] Address: [address] [place] [address] Performed By: #### 2 4321-2 ####[facility] LABORATORYCLIA [id number] [address] STATES OF [facility] Urea nitrogen [Mass/Vol] 9 mg/dL Normal 7-21 [facility] Comment on above: Order Comment: Speci men Type: BLOOD SPECIMENOrdering Facility: [facility] Address: [address] [place] [address] Performed By: #### 2 4321-2 ####[facility] LABORATORYCLIA [id number] [address] [place] CBC panel Auto (Bld)on 02-13 Erythrocyte distribution width (RBC) [Ratio] 13.6 % Normal 11.5-15.0 [facility] Comment on above: Order Comment: Speci men Type: BLOOD SPECIMENOrdering Facility: [facility] Address: [address] [place] [address] Performed By: #### 5 8410-2 ####[facility] LABORATORYCLIA [id number] [address] [place] Hematocrit (Bld) [Volume fraction] 25.8 % Low 36.0-46.0 [facility] Comment on above: Order Comment: Speci men Type: BLOOD SPECIMENOrdering Facility: [facility] Address: [address] [place] [address] Performed By: #### 5 8410-2 ####[facility] LABORATORYCLIA [id number] [address] STATES OF [facility] Hemoglobin (Bld) [Mass/Vol] 8.9 g/dL Low 11.5-15.5 [facility] Comment on above: Order Comment: Speci men Type: BLOOD SPECIMENOrdering Facility: [facility] Address: [address] [place] [address] Performed By: #### 5 8410-2 ####[facility] LABORATORYCLIA [id number] [address] STATES OF [facility] MCH (RBC) [Entitic mass] 30.9 pg Normal 26.0-34.0 [facility] Comment on above: Order Comment: Speci men Type: BLOOD SPECIMENOrdering Facility: [facility] Address: [address] [place] [address] Performed By: #### 5 8410-2 ####[facility] LABORATORYCLIA [id number] [address] STATES OF [facility] MCHC (RBC) [Mass/Vol] 34.5 g/dL Normal 30.5-36.0 [facility] Comment on above: Order Comment: Speci men Type: BLOOD SPECIMENOrdering Facility: [facility] Address: [address] [place] [address] Performed By: #### 5 8410-2 ####[facility] LABORATORYCLIA [id number] [address] [place] MCV (RBC) [Entitic vol] 89.6 fL Normal 80.0-100.0 [facility] Comment on above: Order Comment: Speci men Type: BLOOD SPECIMENOrdering Facility: [facility] Address: [address] [place] [address] Performed By: #### 5 8410-2 ####[facility] LABORATORYCLIA [id number] [address] OF [facility] Nucleated RBC (Bld) [#/Vol] 10*3/uL Normal <0.01 [facility] Comment on above: Order Comment: Speci men Type: BLOOD SPECIMENOrdering Facility: [facility] Address: [address] [place] [address] Performed By: #### 5 8410-2 ####[facility] LABORATORYCLIA [id number] [place] [address] [place] Platelet mean volume (Bld) [Entitic vol] 11.6 fL Normal 9.0-12.7 [facility] Comment on above: Order Comment: Speci men Type: BLOOD SPECIMENOrdering Facility: [facility] Address: [address] [place] [address] Performed By: #### 5 8410-2 ####[facility] LABORATORYCLIA [id number] [address] [place] Platelets (Bld) [#/Vol] 148 10*3/uL Low 150-400 [facility] Comment on above: Order Comment: Speci men Type: BLOOD SPECIMENOrdering Facility: [facility] Address: [address] [place] [address] Performed By: #### 5 8410-2 ####[facility] LABORATORYCLIA [id number] [place] [address] [place] RBC (Bld) [#/Vol] 2.88 10*6/uL Low 3.90-5.20 [facility] Comment on above: Order Comment: Speci men Type: BLOOD SPECIMENOrdering Facility: [facility] Address: [address] [place] [address] Performed By: #### 5 8410-2 ####[facility] LABORATORYCLIA [id number] [place] [address] [place] WBC (Bld) [#/Vol] 2.36 10*3/uL Low 3.70-11.00 [facility] Comment on above: Order Comment: Speci men Type: BLOOD SPECIMENOrdering Facility: [facility] Address: [address] [place] [address] Performed By: #### 5 8410-2 ####[facility] LABORATORYCLIA [id number] [place] [address] [place] CONSULT PROGon 02-13-[address] [facility] THERAPY NTon 02-13-[address] [facility] Basic metabolic 2000 panelon 02-12-2025 Anion gap [Moles/Vol] 9 mmol/L Normal 8-15 [facility] Comment on above: Order Comment: Speci men Type: BLOOD SPECIMENOrdering Facility: [facility] Address: [address] [place] [address] Performed By: #### 2 4321-2 ####[facility] LABORATORYCLIA [id number] [address] [place] Calcium [Mass/Vol] 7.3 mg/dL Low 8.5-10.2 [facility] Comment on above: Order Comment: Speci men Type: BLOOD SPECIMENOrdering Facility: [facility] Address: [address] [place] [address] Performed By: #### 2 4321-2 ####[facility] LABORATORYCLIA [id number] [place] [address] [place] Chloride [Moles/Vol] 100 mmol/L Normal 98-107 [facility] Comment on above: Order Comment: Speci men Type: BLOOD SPECIMENOrdering Facility: [facility] Address: [address] [place] [address] Performed By: #### 2 4321-2 ####[facility] LABORATORYCLIA [id number] [place] [address] [place] CO2 [Moles/Vol] 18 mmol/L Low 22-30 [facility] Comment on above: Order Comment: Speci men Type: BLOOD SPECIMENOrdering Facility: [facility] Address: [address] [place] [address] Performed By: #### 2 4321-2 ####[facility] LABORATORYCLIA [id number] [place] [address] [place] Creatinine [Mass/Vol] 0.58 mg/dL Normal 0.58-0.96 [facility] Comment on above: Order Comment: Elinorbertrand stinson Type: BLOOD SPECIMENOrdering Facility: [facility] Address: [address] [place] [address] Performed By: #### 2 4321-2 ####[facility] LABORATORYCLIA [id number] [place] [address] [place] Creatinine and Glomerular filtration rate.predicted panel (S/P/Bld) 89 mL/min/1.73m??? Normal >=60 [facility] Comment on above: Order Comment: Dayron shantell Type: BLOOD SPECIMENOrdering Facility: [facility] Address: [address] [place] [address] Result Comment: Kya mated Glomerular Filtration Rate [...] actual GFR. Performed By: #### 2 4321-2 ####[facility] LABORATORYCLIA [id number] [place] [address] [place] Glucose [Mass/Vol] 144 mg/dL High 74-99 [facility] Comment on above: Order Comment: Dayron stinson Type: BLOOD SPECIMENOrdering Facility: [facility] Address: [address] [place] [address] Result Comment: The [place] [employer] (ADA) provides guidance for cutoff [...] Standards of Medical Care in Diabetes 2016, [place] [employer]. Diabetes Care. 2016.39(Suppl 1). Performed By: #### 2 4321-2 ####[facility]ORATORYCLIA [id number] [place] [address] [place] Potassium [Moles/Vol] 3.6 mmol/L Low 3.7-5.1 [facility] Comment on above: Order Comment: Speci men Type: BLOOD SPECIMENOrdering Facility: [facility] Address: [address] [place] [address] Performed By: #### 2 4321-2 ####[facility] LABORATORYCLIA [id number] [place] [address] [place] Sodium [Moles/Vol] 127 mmol/L Low 136-144 [facility] Comment on above: Order Comment: Speci men Type: BLOOD SPECIMENOrdering Facility: [facility] Address: [address] [place] [address] Performed By: #### 2 4321-2 ####[facility] LABORATORYCLIA [id number] [place] [address] [place] Urea nitrogen [Mass/Vol] 7 mg/dL Normal 7-21 [facility] Comment on above: Order Comment: Speci men Type: BLOOD SPECIMENOrdering Facility: [facility] Address: [address] [place] [address] Performed By: #### 2 4321-2 ####[facility] LABORATORYCLIA [id number] [address] [place] CASE MANAGEMon 02-12-[address] [facility] CBC W Auto Differential pane l (Bld)on 02-12-2025 Basophils (Bld) [#/Vol] 10*3/uL Normal <0.11 [facility] Comment on above: Order Comment: Speci men Type: BLOOD SPECIMENOrdering Facility: [facility] Address: [address] [place] [address] Performed By: #### 5 7021-8 ####[facility] LABORATORYCLIA [id number] [address] [place] Basophils/100 WBC (Bld) 0.0 % Normal [facility] Comment on above: Order Comment: Speci men Type: BLOOD SPECIMENOrdering Facility: [facility] Address: [address] [place] [address] Performed By: #### 5 7021-8 ####[facility] LABORATORYCLIA [id number] [address] Differential cell count method Nom (Bld) Auto Normal [facility] Comment on above: Order Comment: Speci men Type: BLOOD SPECIMENOrdering Facility: [facility] Address: [address] [place] [address] Performed By: #### 5 7021-8 ####[facility] LABORATORYCLIA [id number] [address] OF [facility] Eosinophils (Bld) [#/Vol] 0.04 10*3/uL Normal <0.46 [facility] Comment on above: Order Comment: Speci men Type: BLOOD SPECIMENOrdering Facility: [facility] Address: [address] [place] [address] Performed By: #### 5 7021-8 ####[facility] LABORATORYCLIA [id number] [address] STATES [facility] Eosinophils/100 WBC (Bld) 1.8 % Normal [facility] Comment on above: Order Comment: Speci men Type: BLOOD SPECIMENOrdering Facility: [facility] Address: [address] [place] [address] Performed By: #### 5 7021-8 ####[facility] LABORATORYCLIA [id number] [address] Erythrocyte distribution width (RBC) [Ratio] 13.5 % Normal 11.5-15.0 [facility] Comment on above: Order Comment: Speci men Type: BLOOD SPECIMENOrdering Facility: [facility] Address: [address] [place] [address] Performed By: #### 5 7021-8 ####[facility] LABORATORYCLIA [id number] [address] [place] Hematocrit (Bld) [Volume fraction] 25.1 % Low 36.0-46.0 [facility] Comment on above: Order Comment: Speci men Type: BLOOD SPECIMENOrdering Facility: [facility] Address: [address] [place] [address] Performed By: #### 5 7021-8 ####[facility] LABORATORYCLIA [id number] [address] [place] Hemoglobin (Bld) [Mass/Vol] 8.3 g/dL Low 11.5-15.5 [facility] Comment on above: Order Comment: Speci men Type: BLOOD SPECIMENOrdering Facility: [facility] Address: [address] [place] [address] Performed By: #### 5 7021-8 ####[facility] LABORATORYCLIA [id number] [place] [address] [place] Immature granulocytes (Bld) [#/Vol] 0.05 10*3/uL Normal <0.10 [facility] Comment on above: Order Comment: Speci men Type: BLOOD SPECIMENOrdering Facility: [facility] Address: [address] [place] [address] Performed By: #### 5 7021-8 ####[facility] LABORATORYCLIA [id number] [address] [place] Immature granulocytes/100 WBC (Bld) 2.2 % Normal [facility] Comment on above: Order Comment: Speci men Type: BLOOD SPECIMENOrdering Facility: [facility] Address: [address] [place] [address] Performed By: #### 5 7021-8 ####[facility] LABORATORYCLIA [id number] [place] [address] [place] Lymphocytes (Bld) [#/Vol] 0.35 10*3/uL Low 1.00-4.00 [facility] Comment on above: Order Comment: Speci men Type: BLOOD SPECIMENOrdering Facility: [facility] Address: [address] [place] [address] Performed By: #### 5 7021-8 ####[facility] LABORATORYCLIA [id number] [address] Lymphocytes/100 WBC (Bld) 15.4 % Normal [facility] Comment on above: Order Comment: Speci men Type: BLOOD SPECIMENOrdering Facility: [facility] Address: [address] [place] [address] Performed By: #### 5 7021-8 ####[facility] LABORATORYCLIA [id number] [address] MCH (RBC) [Entitic mass] 30.4 pg Normal 26.0-34.0 [facility] Comment on above: Order Comment: Speci men Type: BLOOD SPECIMENOrdering Facility: [facility] Address: [address] [place] [address] Performed By: #### 5 7021-8 ####[facility] LABORATORYCLIA [id number] [address] MCHC (RBC) [Mass/Vol] 33.1 g/dL Normal 30.5-36.0 [facility] Comment on above: Order Comment: Speci men Type: BLOOD SPECIMENOrdering Facility: [facility] Address: [address] [place] [address] Performed By: #### 5 7021-8 ####[facility] LABORATORYCLIA [id number] [address] MCV (RBC) [Entitic vol] 91.9 fL Normal 80.0-100.0 [facility] Comment on above: Order Comment: Speci men Type: BLOOD SPECIMENOrdering Facility: [facility] Address: [address] [place] [address] Performed By: #### 5 7021-8 ####[facility] LABORATORYCLIA [id number] [address] Monocytes (Bld) [#/Vol] 0.22 10*3/uL Normal <0.87 [facility] Comment on above: Order Comment: Speci men Type: BLOOD SPECIMENOrdering Facility: [facility] Address: [address] [place] [address] Performed By: #### 5 7021-8 ####[facility] LABORATORYCLIA [id number] [address] [place] Monocytes/100 WBC (Bld) 9.7 % Normal [facility] Comment on above: Order Comment: Speci men Type: BLOOD SPECIMENOrdering Facility: [facility] Address: [address] [place] [address] Performed By: #### 5 7021-8 ####[facility] LABORATORYCLIA [id number] [place] [address] [place] Neutrophils (Bld) [#/Vol] 1.61 10*3/uL Normal 1.45-7.50 [facility] Comment on above: Order Comment: Speci men Type: BLOOD SPECIMENOrdering Facility: [facility] Address: [address] [place] [address] Performed By: #### 5 7021-8 ####[facility] LABORATORYCLIA [id number] [address] [place] Neutrophils/100 WBC (Bld) 70.9 % Normal [facility] Comment on above: Order Comment: Speci men Type: BLOOD SPECIMENOrdering Facility: [facility] Address: [address] [place] [address] Performed By: #### 5 7021-8 ####[facility] LABORATORYCLIA [id number] [place] [address] [place] Nucleated RBC (Bld) [#/Vol] 10*3/uL Normal <0.01 [facility] Comment on above: Order Comment: Speci men Type: BLOOD SPECIMENOrdering Facility: [facility] Address: [address] [place] [address] Performed By: #### 5 7021-8 ####[facility] LABORATORYCLIA [id number] [place] [address] [place] Nucleated RBC/100 WBC (Bld) [Ratio] 0.0 /[address] [facility] Comment on above: Order Comment: Speci men Type: BLOOD SPECIMENOrdering Facility: [facility] Address: [address] [place] [address] Performed By: #### 5 7021-8 ####[facility] LABORATORYCLIA [id number] [address] [place] Platelet mean volume (Bld) [Entitic vol] 12.0 fL Normal 9.0-12.7 [facility] Comment on above: Order Comment: Speci men Type: BLOOD SPECIMENOrdering Facility: [facility] Address: [address] [place] [address] Performed By: #### 5 7021-8 ####[facility] LABORATORYCLIA [id number] [place] [address] [place] Platelets (Bld) [#/Vol] 117 10*3/uL Low 150-400 [facility] Comment on above: Order Comment: Speci men Type: BLOOD SPECIMENOrdering Facility: [facility] Address: [address] [place] [address] Result Comment: No c lot detected. Performed By: #### 5 7021-8 ####[facility] LABORATORYCLIA [id number] [place] [address] [place] RBC (Bld) [#/Vol] 2.73 10*6/uL Low 3.90-5.20 [facility] Comment on above: Order Comment: Speci men Type: BLOOD SPECIMENOrdering Facility: [facility] Address: [address] [place] [address] Performed By: #### 5 7021-8 ####[facility] LABORATORYCLIA [id number] [place] [address] [place] WBC (Bld) [#/Vol] 2.27 10*3/uL Low 3.70-11.00 [facility] Comment on above: Order Comment: Speci men Type: BLOOD SPECIMENOrdering Facility: [facility] Address: [address] [place] [address] Performed By: #### 5 7021-8 ####[facility] LABORATORYCLIA [id number] [place] [address] [place] CONSULTon 02-12-[address] [facility] CONSULT PROGon 02-12-[address] [facility] CONSULT PROG Normal [facility] NUTRITIONon 02-12-[address] [facility] ALLIED HEALTHon 02-11-[address] [facility] ALLIED HEALTH Normal [facility] Bacteria Spec Resp Culton Bacteria identified Respiratory culture Nom (Unsp spec) CULTURE, RESPIRATORY: Moderate Normal respiratory murray present GRAM STAIN: Moderate Mixed oral murray No Polymorphonuclear Leukocytes Few Epithelial cells Abnormal [facility] Comment on above: Performed By: #### 3 2355-0 ####[facility] LABORATORYCLIA [id number] [place] [address] [place] Basic metabolic 2000 panelon 02-11-2025 Anion gap [Moles/Vol] 11 mmol/L Normal 8-15 [facility] Comment on above: Order Comment: Speci men Type: BLOOD SPECIMENOrdering Facility: [facility] Address: [address] [place] [address] Performed By: #### 2 4325-3, 3040-3, 92721-6 ####[facility] LABORATORYCLIA [id number] [place] [address] [place] Calcium [Mass/Vol] 8.2 mg/dL Low 8.5-10.2 [facility] Comment on above: Order Comment: Speci men Type: BLOOD SPECIMENOrdering Facility: [facility] Address: [address] [place] [address] Performed By: #### 2 4325-3, 3040-3, 93306-4 ####[facility] LABORATORYCLIA [id number] [place] [address] [place] Chloride [Moles/Vol] 93 mmol/L Low 98-107 [facility] Comment on above: Order Comment: Speci men Type: BLOOD SPECIMENOrdering Facility: [facility] Address: [address] [place] [address] Performed By: #### 2 4325-3, 3040-3, 39816-1 ####[facility] LABORATORYCLIA [id number] [place] [address] [place] CO2 [Moles/Vol] 21 mmol/L Low 22-30 [facility] Comment on above: Order Comment: Speci men Type: BLOOD SPECIMENOrdering Facility: [facility] Address: [address] [place] [address] Performed By: #### 2 4325-3, 0-3, 53290-8 ####[facility] LABORATORYCLIA [id number] [place] [address] [place] Creatinine [Mass/Vol] 0.63 mg/dL Normal 0.58-0.96 [facility] Comment on above: Order Comment: Speci men Type: BLOOD SPECIMENOrdering Facility: [facility] Address: [address] [place] [address] Performed By: #### 2 4325-3, 0-3, ####[facility]ITALCL[facility] [id number] [address] STATES OF [facility] Creatinine and Glomerular filtration rate.predicted panel (S/P/Bld) 88 mL/min/1.73m??? Normal >=60 [facility] Comment on above: Order Comment: Speci men Type: BLOOD SPECIMENOrdering Facility: [facility] Address: [address] [place] [address] Result Comment: Kya mated Glomerular Filtration Rate [...] GFR. Performed By: #### 2 4325-3, 3040-3, 07574-1 ####[facility] LABORATORYCLIA [id number] [place] [address] [place] Glucose [Mass/Vol] 251 mg/dL High 74-99 [facility] Comment on above: Order Comment: Specbertrand men Type: BLOOD SPECIMENOrdering Facility: [facility] Address: [address] [place] [address] Result Comment: The [place] Diabetes [employer] (ADA) provides guidance for cutoff [...] Standards of Medical Care in Diabetes 2016, [place] [employer]. Diabetes Care. 2016.39(Suppl 1). Performed By: #### 2 4325-3, 3040-3, 49504-1 ####[facility] LABORATORYCLIA [id number] [place] [address] [place] Potassium [Moles/Vol] 4.3 mmol/L Normal 3.7-5.1 [facility] Comment on above: Order Comment: Dayron shantell Type: BLOOD SPECIMENOrdering Facility: [facility] Address: [address] [place] [address] Performed By: #### 2 4325-3, 3040-3, 51730-8 ####[facility] LABORATORYCLIA [id number] [place] [address] [place] Sodium [Moles/Vol] 125 mmol/L Low 136-144 [facility] Comment on above: Order Comment: Elinori shantell Type: BLOOD SPECIMENOrdering Facility: [facility] Address: [address] [place] [address] Performed By: #### 2 4325-3, 3040-3, 51918-4 ####[facility] LABORATORYCLIA [id number] [place] [address] [place] Urea nitrogen [Mass/Vol] 8 mg/dL Normal 7-21 [facility] Comment on above: Order Comment: Speci men Type: BLOOD SPECIMENOrdering Facility: [facility] Address: [address] [place] [address] Performed By: #### 2 4325-3, 3040-3, 81656-0 ####[facility] LABORATORYCLIA [id number] [address] [place] CASE MGT INIT ASSESon 2024 CASE MGT INIT ASSES Normal [facility] CBC panel Auto (Bld)on 02-11 Erythrocyte distribution width (RBC) [Ratio] 13.5 % Normal 11.5-15.0 [facility] Comment on above: Order Comment: Speci men Type: BLOOD SPECIMENOrdering Facility: [facility] Address: [address] [place] [address] Performed By: #### 5 8410-2 ####[facility] LABORATORYCLIA [id number] [address] STATES OF [facility] Hematocrit (Bld) [Volume fraction] 25.5 % Low 36.0-46.0 [facility] Comment on above: Order Comment: Speci men Type: BLOOD SPECIMENOrdering Facility: [facility] Address: [address] [place] [address] Performed By: #### 5 8410-2 ####[facility] LABORATORYCLIA [id number] [address] [place] Hemoglobin (Bld) [Mass/Vol] 8.8 g/dL Low 11.5-15.5 [facility] Comment on above: Order Comment: Speci men Type: BLOOD SPECIMENOrdering Facility: [facility] Address: [address] [place] [address] Performed By: #### 5 8410-2 ####[facility] LABORATORYCLIA [id number] [address] [place] MCH (RBC) [Entitic mass] 31.2 pg Normal 26.0-34.0 [facility] Comment on above: Order Comment: Speci men Type: BLOOD SPECIMENOrdering Facility: [facility] Address: [address] [place] [address] Performed By: #### 5 8410-2 ####[facility] LABORATORYCLIA [id number] [address] STATES [facility] MCHC (RBC) [Mass/Vol] 34.5 g/dL Normal 30.5-36.0 [facility] Comment on above: Order Comment: Speci men Type: BLOOD SPECIMENOrdering Facility: [facility] Address: [address] [place] [address] Performed By: #### 5 8410-2 ####[facility] LABORATORYCLIA [id number] [address] [place] MCV (RBC) [Entitic vol] 90.4 fL Normal 80.0-100.0 [facility] Comment on above: Order Comment: Speci men Type: BLOOD SPECIMENOrdering Facility: [facility] Address: [address] [place] [address] Performed By: #### 5 8410-2 ####[facility] LABORATORYCLIA [id number] [address] STATES OF [facility] Nucleated RBC (Bld) [#/Vol] 10*3/uL Normal <0.01 [facility] Comment on above: Order Comment: Speci men Type: BLOOD SPECIMENOrdering Facility: [facility] Address: [address] [place] [address] Performed By: #### 5 8410-2 ####[facility] LABORATORYCLIA [id number] [address] [place] Platelet mean volume (Bld) [Entitic vol] 12.0 fL Normal 9.0-12.7 [facility] Comment on above: Order Comment: Speci men Type: BLOOD SPECIMENOrdering Facility: [facility] Address: [address] [place] [address] Performed By: #### 5 8410-2 ####[facility] LABORATORYCLIA [id number] [address] [place] Platelets (Bld) [#/Vol] 112 10*3/uL Low 150-400 [facility] Comment on above: Order Comment: Speci men Type: BLOOD SPECIMENOrdering Facility: [facility] Address: [address] [place] [address] Result Comment: No c lot detected. Performed By: #### 5 8410-2 ####[facility] LABORATORYCLIA [id number] [address] STATES OF [facility] RBC (Bld) [#/Vol] 2.82 10*6/uL Low 3.90-5.20 [facility] Comment on above: Order Comment: Speci men Type: BLOOD SPECIMENOrdering Facility: [facility] Address: [address] [place] [address] Performed By: #### 5 8410-2 ####[facility] LABORATORYCLIA [id number] [address] STATES OF [facility] WBC (Bld) [#/Vol] 1.92 10*3/uL Low 3.70-11.00 [facility] Comment on above: Order Comment: Speci men Type: BLOOD SPECIMENOrdering Facility: [facility] Address: [address] [place] [address] Performed By: #### 5 8410-2 ####[facility] LABORATORYCLIA [id number] [address] [place] CNPTOUTREACHon 02-11-2025 CNPTOUTREACH Normal [facility] CONSULTon 02-11-[address] [facility] CONSULT Normal [facility] CONSULT PROGon 02-11-[address] [facility] CONSULT PROG Normal [facility] CT ABD/PEL W IVCONon 025 CT ABD/PEL W IVCON Normal [facility] ED NOTEon 02-11-2025 ED NOTE HNO ID: [id number] Author: AYAZ HOLLOWAY RN Service: ? Author Type: Registered Nurse Type: ED Notes Filed: 02/11/2025 00:53 Note Text: RN attempted to call floor RN twice. Normal [facility] HISTORY PHYSICALon HISTORY PHYSICAL Normal [facility] Hepatic function 2000 panelo n 02-11-2025 Albumin [Mass/Vol] 3.0 g/dL Low 3.9-4.9 [facility] Comment on above: Order Comment: Speci men Type: BLOOD SPECIMENOrdering Facility: [facility] Address: [address] [place] [address] Performed By: #### 2 4325-3, 3040-3, 28619-8 ####[facility] LABORATORYCLIA [id number] [address] STATES OF [facility] ALP [Catalytic activity/Vol] 80 U/L Normal 34-123 [facility] Comment on above: Order Comment: Speci men Type: BLOOD SPECIMENOrdering Facility: [facility] Address: [address] [place] [address] Performed By: #### 2 4325-3, 3040-3, 31549-4 ####[facility] LABORATORYCLIA [id number] [address] [place] OF [facility] ALT With P-5'-P [Catalytic activity/Vol] 19 U/L Normal 7-38 [facility] Comment on above: Order Comment: Speci men Type: BLOOD SPECIMENOrdering Facility: [facility] Address: [address] [place] [address] Performed By: #### 2 4325-3, 3040-3, 00835-0 ####[facility] LABORATORYCLIA [id number] [address] [place] OF [facility] AST With P-5'-P [Catalytic activity/Vol] 19 U/L Normal 13-35 [facility] Comment on above: Order Comment: Speci men Type: BLOOD SPECIMENOrdering Facility: [facility] Address: [address] [place] [address] Performed By: #### 2 4325-3, 3040-3, 24601-3 ####[facility] LABORATORYCLIA [id number] [place], [place] [address] [place] [address] [place] Bilirubin [Mass/Vol] 1.2 mg/dL Normal 0.2-1.3 [facility] Comment on above: Order Comment: Speci men Type: BLOOD SPECIMENOrdering Facility: [facility] Address: [address] [place] [address] Performed By: #### 2 4325-3, 3040-3, 45907-2 ####[facility] LABORATORYCLIA [id number] [place] [address] [place] Bilirubin.conjugated [Mass/Vol] 0.8 mg/dL High <0.3 [facility] Comment on above: Order Comment: Speci men Type: BLOOD SPECIMENOrdering Facility: [facility] Address: [address] [place] [address] Performed By: #### 2 4325-3, 3040-3, 97483-7 ####[facility] LABORATORYCLIA [id number] [place] [address] [place] Protein [Mass/Vol] 5.9 g/dL Low 6.3-8.0 [facility] Comment on above: Order Comment: Speci men Type: BLOOD SPECIMENOrdering Facility: [facility] Address: [address] [place] [address] Performed By: #### 2 4325-3, 3040-3, 45266-9 ####[facility] LABORATORYCLIA [id number] [place] [address] [place] Lipase SerPl-cCncon 02-12-20 25 Lipase [Catalytic activity/Vol] 45 U/L Normal 16-61 [facility] Comment on above: Order Comment: Speci men Type: BLOOD SPECIMENOrdering Facility: [facility] Address: [address] [place] [address] Performed By: #### 2 4325-3, 3040-3, 50312-2 ####[facility] LABORATORYCLIA [id number] [place] [address] [place] STAPHYLOCOCCUS AUREUS AND MR SA SCREEN, PCR, NASALon 02-11-2025 S. aureus and MRSA panel GUNNER+probe (Nose) Not detected Normal Not Detected [facility] Comment on above: Order Comment: Speci men Type: SWABOrdering Facility: [facility] Address: [address] [place] [address] Performed By: #### S APCR ####[facility] LABORATORYCLIA [id number] [address] Bacteria Bld Culton 02-11-20 25 Bacteria identified Cx Nom (Bld) CULTURE, BLOOD: No growth [address] [facility] Comment on above: Performed By: #### 6 00-7 ####[facility] LABORATORYCLIA [id number] [address] CBC W Auto Differential pane l (Bld)on 02-10-2025 Basophils (Bld) [#/Vol] 0.00 10*3/uL Normal <0.11 [facility] Comment on above: Order Comment: Speci men Type: BLOOD SPECIMENOrdering Facility: [facility] Address: [address] [place] [address] Performed By: #### 5 7021-8, [id number] ####[facility] LABORATORYCLIA [id number] [address] Basophils/100 WBC (Bld) 0.0 % Normal [facility] Comment on above: Order Comment: Speci men Type: BLOOD SPECIMENOrdering Facility: [facility] Address: [address] [place] [address] Performed By: #### 5 7021-8, [id number] ####[facility] LABORATORYCLIA [id number] [address] Differential cell count method Nom (Bld) Manual Normal [facility] Comment on above: Order Comment: Speci men Type: BLOOD SPECIMENOrdering Facility: [facility] Address: [address] [place] [address] Performed By: #### 5 7021-8, [id number] ####[facility]ATORYCLIA [id number] [address] [place] Eosinophils (Bld) [#/Vol] 0.07 10*3/uL Normal <0.46 [facility] Comment on above: Order Comment: Speci men Type: BLOOD SPECIMENOrdering Facility: [facility] Address: [address] [place] [address] Performed By: #### 5 7021-8, [id number] ####[facility] LABORATORYCLIA [id number] [address] [place] Eosinophils/100 WBC (Bld) 3.0 % Normal [facility] Comment on above: Order Comment: Speci men Type: BLOOD SPECIMENOrdering Facility: [facility] Address: [address] [place] [address] Performed By: #### 5 7021-8, [id number] ####[facility] LABORATORYCLIA [id number] [address] [place] Erythrocyte distribution width (RBC) [Ratio] 13.5 % Normal 11.5-15.0 [facility] Comment on above: Order Comment: Speci men Type: BLOOD SPECIMENOrdering Facility: [facility] Address: [address] [place] [address] Performed By: #### 5 7021-8, [id number] ####[facility] LABORATORYCLIA [id number] [address] [place] Hematocrit (Bld) [Volume fraction] 30.0 % Low 36.0-46.0 [facility] Comment on above: Order Comment: Speci men Type: BLOOD SPECIMENOrdering Facility: [facility] Address: [address] [place] [address] Performed By: #### 5 7021-8, [id number] ####[facility]ATORYCLIA [id number] [address] [place] Hemoglobin (Bld) [Mass/Vol] 9.9 g/dL Low 11.5-15.5 [facility] Comment on above: Order Comment: Speci men Type: BLOOD SPECIMENOrdering Facility: [facility] Address: [address] [place] [address] Performed By: #### 5 7021-8, [id number] ####[facility]ORATORYCLIA [id number] [address] HYPOGRANULATED PMNS Present Normal [facility] Comment on above: Order Comment: Speci men Type: BLOOD SPECIMENOrdering Facility: [facility] Address: [address] [place] [address] Performed By: #### 5 7021-8, [id number] ####[facility] LABORATORYCLIA [id number] [address] [place] Lymphocytes (Bld) [#/Vol] 0.41 10*3/uL Low 1.00-4.00 [facility] Comment on above: Order Comment: Speci men Type: BLOOD SPECIMENOrdering Facility: [facility] Address: [address] [place] [address] Performed By: #### 5 7021-8, [id number] ####[facility]ORATORYCLIA [id number] [address] Lymphocytes/100 WBC (Bld) 16.0 % Normal [facility] Comment on above: Order Comment: Speci men Type: BLOOD SPECIMENOrdering Facility: [facility] Address: [address] [place] [address] Performed By: #### 5 7021-8, [id number] ####[facility] LABORATORYCLIA [id number] [address] [place] MCH (RBC) [Entitic mass] 30.6 pg Normal 26.0-34.0 [facility] Comment on above: Order Comment: Speci men Type: BLOOD SPECIMENOrdering Facility: [facility] Address: [address] [place] [address] Performed By: #### 5 7021-8, [id number] ####[facility]ORATORYCLIA [id number] [address] [place] MCHC (RBC) [Mass/Vol] 33.0 g/dL Normal 30.5-36.0 [facility] Comment on above: Order Comment: Speci men Type: BLOOD SPECIMENOrdering Facility: [facility] Address: [address] [place] [address] Performed By: #### 5 7021-8, [id number] ####[facility]ATORYCLIA [id number] [address] [place] MCV (RBC) [Entitic vol] 92.6 fL Normal 80.0-100.0 [facility] Comment on above: Order Comment: Speci men Type: BLOOD SPECIMENOrdering Facility: [facility] Address: [address] [place] [address] Performed By: #### 5 7021-8, [id number] ####[facility]ATORYCLIA [id number] [address] [place] Metamyelocytes/100 WBC (Bld) 2.0 % Normal [facility] Comment on above: Order Comment: Speci men Type: BLOOD SPECIMENOrdering Facility: [facility] Address: [address] [place] [address] Performed By: #### 5 7021-8, [id number] ####[facility]ATORYCLIA [id number] [address] [place] Monocytes (Bld) [#/Vol] 0.09 10*3/uL Normal <0.87 [facility] Comment on above: Order Comment: Speci men Type: BLOOD SPECIMENOrdering Facility: [facility] Address: [address] [place] [address] Performed By: #### 5 7021-8, [id number] ####[facility]ATORYCLIA [id number] [address] [place] Monocytes/100 WBC (Bld) 4.0 % Normal [facility] Comment on above: Order Comment: Speci men Type: BLOOD SPECIMENOrdering Facility: [facility] Address: [address] [place] [address] Performed By: #### 5 7021-8, [id number] ####[facility]ATORYCLIA [id number] [address] [place] Neutrophils (Bld) [#/Vol] 1.57 10*3/uL Normal 1.45-7.50 [facility] Comment on above: Order Comment: Speci men Type: BLOOD SPECIMENOrdering Facility: [facility] Address: [address] [place] [address] Performed By: #### 5 7021-8, [id number] ####[facility] LABORATORYCLIA [id number] [address] [place] Neutrophils/100 WBC (Bld) 72.0 % Normal [facility] Comment on above: Order Comment: Speci men Type: BLOOD SPECIMENOrdering Facility: [facility] Address: [address] [place] [address] Performed By: #### 5 7021-8, [id number] ####[facility]ATORYCLIA [id number] [address] [place] Nucleated RBC (Bld) [#/Vol] 10*3/uL Normal <0.01 [facility] Comment on above: Order Comment: Speci men Type: BLOOD SPECIMENOrdering Facility: [facility] Address: [address] [place] [address] Performed By: #### 5 7021-8, [id number] ####[facility] LABORATORYCLIA [id number] [address] [place] Nucleated RBC/100 WBC (Bld) [Ratio] 0.0 /[address] [facility] Comment on above: Order Comment: Speci men Type: BLOOD SPECIMENOrdering Facility: [facility] Address: [address] [place] [address] Performed By: #### 5 7021-8, [id number] ####[facility]ATORYCLIA [id number] [address] [place] Ovalocytes LM Ql (Bld) Few Normal [facility] Comment on above: Order Comment: Speci men Type: BLOOD SPECIMENOrdering Facility: [facility] Address: [address] [place] [address] Performed By: #### 5 7021-8, [id number] ####[facility]ATORYCLIA [id number] [address] [place] Platelet mean volume (Bld) [Entitic vol] 12.1 fL Normal 9.0-12.7 [facility] Comment on above: Order Comment: Speci men Type: BLOOD SPECIMENOrdering Facility: [facility] Address: [address] [place] [address] Performed By: #### 5 7021-8, [id number] ####[facility] LABORATORYCLIA [id number] [place] [address] [place] Platelets (Bld) [#/Vol] 126 10*3/uL Low 150-400 [facility] Comment on above: Order Comment: Speci men Type: BLOOD SPECIMENOrdering Facility: [facility] Address: [address] [place] [address] Result Comment: No c lot detected. Performed By: #### 5 7021-8, [id number] ####[facility] LABORATORYCLIA [id number] [address] STATES [facility] Platelets Estimate (Bld) [#/Vol] Decreased Normal [facility] Comment on above: Order Comment: Speci men Type: BLOOD SPECIMENOrdering Facility: [facility] Address: [address] [place] [address] Performed By: #### 5 7021-8, [id number] ####[facility]ORATORYCLIA [id number] [address] Polychromasia LM Ql (Bld) Slight Normal [facility] Comment on above: Order Comment: Speci men Type: BLOOD SPECIMENOrdering Facility: [facility] Address: [address] [place] [address] Performed By: #### 5 7021-8, [id number] ####[facility]ORATORYCLIA [id number] [address] [place] RBC (Bld) [#/Vol] 3.24 10*6/uL Low 3.90-5.20 [facility] Comment on above: Order Comment: Speci men Type: BLOOD SPECIMENOrdering Facility: [facility] Address: [address] [place] [address] Performed By: #### 5 7021-8, [id number] ####[facility]ATORYCLIA [id number] [address] [place] RBC FRAGMENTS Few Abnormal None Seen [facility] Comment on above: Order Comment: Speci men Type: BLOOD SPECIMENOrdering Facility: [facility] Address: [address] [place] [address] Performed By: #### 5 7021-8, [id number] ####[facility]ATORYCLIA [id number] [address] [place] RED CELL MORPH Reviewed: see result s of individual morphologies Normal [facility] Comment on above: Order Comment: Speci men Type: BLOOD SPECIMENOrdering Facility: [facility] Address: [address] [place] [address] Performed By: #### 5 7021-8, [id number] ####[facility]ATORYCLIA [id number] [address] [place] ROULEAUX Present Normal [facility] Comment on above: Order Comment: Speci men Type: BLOOD SPECIMENOrdering Facility: [facility] Address: [address] [place] [address] Performed By: #### 5 7021-8, [id number] ####[facility]ATORYCLIA [id number] [address] [place] Variant lymphocytes/100 WBC (Bld) 3.0 % Normal [facility] Comment on above: Order Comment: Speci men Type: BLOOD SPECIMENOrdering Facility: [facility] Address: [address] [place] [address] Performed By: #### 5 7021-8, [id number] ####[facility]ATORYCLIA [id number] [address] [place] WBC (Bld) [#/Vol] 2.18 10*3/uL Low 3.70-11.00 [facility] Comment on above: Order Comment: Speci men Type: BLOOD SPECIMENOrdering Facility: [facility] Address: [address] [place] [address] Performed By: #### 5 7021-8, [id number] ####[facility]ORATORYCLIA [id number] [address] Comprehensive metabolic 2000 panelon 02-10-2025 Albumin [Mass/Vol] 3.5 g/dL Low 3.9-4.9 [facility] Comment on above: Order Comment: Speci men Type: BLOOD SPECIMENOrdering Facility: [facility] Address: [address] [place] [address] Performed By: #### 2 4323-8 ####[facility]ORATORYCLIA [id number] [address] ALP [Catalytic activity/Vol] 94 U/L Normal 34-123 [facility] Comment on above: Order Comment: Speci men Type: BLOOD SPECIMENOrdering Facility: [facility] Address: [address] [place] [address] Performed By: #### 2 4323-8 ####[facility]ORATORYCLIA [id number] [address] ALT With P-5'-P [Catalytic activity/Vol] Normal [facility] Comment on above: Order Comment: Speci men Type: BLOOD SPECIMENOrdering Facility: [facility] Address: [address] [place] [address] Result Comment: Unab le to assay due to interference from hemolysis. Suggest reorder as clinically indicated. Performed By: #### 2 4323-8 ####[facility]ORATORYCLIA [id number] [address] Anion gap [Moles/Vol] 15 mmol/L Normal 8-15 [facility] Comment on above: Order Comment: Speci men Type: BLOOD SPECIMENOrdering Facility: [facility] Address: [address] [place] [address] Performed By: #### 2 4323-8 ####[facility]ORATORYCLIA [id number] [address] AST With P-5'-P [Catalytic activity/Vol] Normal [facility] Comment on above: Order Comment: Speci men Type: BLOOD SPECIMENOrdering Facility: [facility] Address: [address] [place] [address] Result Comment: Unab le to assay due to interference from hemolysis. Suggest reorder as clinically indicated. Performed By: #### 2 4323-8 ####[facility]ORATORYCLIA [id number] [address] [place] Bilirubin [Mass/Vol] 1.2 mg/dL Normal 0.2-1.3 [facility] Comment on above: Order Comment: Speci men Type: BLOOD SPECIMENOrdering Facility: [facility] Address: [address] [place] [address] Performed By: #### 2 4323-8 ####[facility]ORATORYCLIA [id number] [address] [place] Calcium [Mass/Vol] 8.7 mg/dL Normal 8.5-10.2 [facility] Comment on above: Order Comment: Speci men Type: BLOOD SPECIMENOrdering Facility: [facility] Address: [address] [place] [address] Performed By: #### 2 4323-8 ####[facility]ORATORYCLIA [id number] [place] [address] [place] Chloride [Moles/Vol] 92 mmol/L Low 98-107 [facility] Comment on above: Order Comment: Speci men Type: BLOOD SPECIMENOrdering Facility: [facility] Address: [address] [place] [address] Performed By: #### 2 4323-8 ####[facility]ORATORYCLIA [id number] [place] [address] [place] CO2 [Moles/Vol] 16 mmol/L Low 22-30 [facility] Comment on above: Order Comment: Speci men Type: BLOOD SPECIMENOrdering Facility: [facility] Address: [address] [place] [address] Performed By: #### 2 4323-8 ####[facility]ORATORYCLIA [id number] [address] STATES OF [facility] Creatinine [Mass/Vol] 0.55 mg/dL Low 0.58-0.96 [facility] Comment on above: Order Comment: Dayron stinson Type: BLOOD SPECIMENOrdering Facility: [facility] Address: [address] [place] [address] Performed By: #### 2 4323-8 ####[facility]ORATORYCLIA [id number] [address] Creatinine and Glomerular filtration rate.predicted panel (S/P/Bld) 91 mL/min/1.73m??? Normal >=60 [facility] Comment on above: Order Comment: Dayron stinson Type: BLOOD SPECIMENOrdering Facility: [facility] Address: [address] [place] [address] Result Comment: Kya mated Glomerular Filtration Rate [...] actual GFR. Performed By: #### 2 4323-8 ####[facility]ORATORYCLIA [id number] [address] STATES OF [facility] Glucose [Mass/Vol] 217 mg/dL High 74-99 [facility] Comment on above: Order Comment: Dayron stinson Type: BLOOD SPECIMENOrdering Facility: [facility] Address: [address] [place] [address] Result Comment: The [place] Diabetes Association (ADA) provides guidance for cutoff [...] Standards of Medical Care in Diabetes 2016, [place] [employer]. Diabetes Care. 2016.39(Suppl 1). Performed By: #### 2 4323-8 ####[facility]ORATORYCLIA [id number] [place] [address] [place] Potassium [Moles/Vol] Normal [facility] Comment on above: Order Comment: Speci men Type: BLOOD SPECIMENOrdering Facility: [facility] Address: [address] [place] [address] Result Comment: Unab le to assay due to interference from hemolysis. Suggest reorder as clinically indicated. Performed By: #### 2 4323-8 ####[facility]ORATORYCLIA [id number] [place] [address] [place] Protein [Mass/Vol] 6.5 g/dL Normal 6.3-8.0 [facility] Comment on above: Order Comment: Speci [facility] Type: BLOOD SPECIMENOrdering Facility: [facility] Address: [address] [place] [address] Performed By: #### 2 4323-8 ####[facility]ORATORYCLIA [id number] [place] [address] [place] Sodium [Moles/Vol] 123 mmol/L Low 136-144 [facility] Comment on above: Order Comment: Speci men Type: BLOOD SPECIMENOrdering Facility: [facility] Address: [address] [place] [address] Performed By: #### 2 4323-8 ####[facility]ORATORYCLIA [id number] [place] [address] [place] Urea nitrogen [Mass/Vol] 9 mg/dL Normal 7-21 [facility] Comment on above: Order Comment: Elinori men Type: BLOOD SPECIMENOrdering Facility: [facility] Address: [address] [place] [address] Performed By: #### 2 4323-8 ####[facility]ORATORYCLIA [id number] [place] [address] [place] ECG COMPLETEon 02-10-[address] [facility] ED NOTEon 02-10-2025 ED NOTE HNO ID: [id number] Author: AYAZ HOLLOWAY, MAGNUS Service: ? Author Type: Registered Nurse Type: ED Notes Filed: 02/11/2025 00:44 Note Text: MD Weber at bedside when temp of 99.9f was taken Normal [facility] ED NOTE HNO ID: [id number] Author: AYAZ HOLLOWAY, MAGNUS Service: ? Author Type: Registered Nurse Type: ED Notes Filed: 02/10/2025 20:41 Note Text: MD notified of need for US IV due to inability to draw blood. Normal [facility] ED NOTE HNO ID: [id number] Author: GARIMA TORO RN Service: ? Author Type: Registered Nurse Type: ED Notes Filed: 02/10/2025 20:27 Note Text: Bed: 20-ED Expected date: Expected time: Means of arrival: Comments: Triage Normal [facility] ED NOTE HNO ID: [id number] Author: JAYLEEN BOB RN Service: Emergency Medicine Author Type: Registered Nurse Type: ED Notes Filed: 02/10/2025 19:35 Note Text: Patient placed in the internal waiting room Normal [facility] ED NOTE HNO ID: [id number] Author: JAYLEEN BOB RN Service: Emergency Medicine Author Type: Registered Nurse Type: ED Notes Filed: 02/10/2025 19:24 Note Text: ED Xray notified patient ready for ordered radiology in the internal waiting room Normal [facility] ED PROV NOTEon 02-10-[address] [facility] ED PROV NOTE Normal [facility] ED Triage Noteon 02-10-2025 ED Triage Note Normal [facility] PATHOLOGIST INTERPRETATION C BC AND DIFFERENTIAL (LAB REFLEX ORDER-NO BILL)on 02-10-2025 [place] Supervisor review Jimenez (Unsp spec) [Interp] Reviewed by Diya Albarran MD Normal [facility] Comment on above: Order Comment: Speci men Type: BLOOD SPECIMENOrdering Facility: [facility] Address: [address] [place] [address] Performed By: #### 5 7021-8, [id number] ####[facility]ORATORYCLIA [id number] [address] STAFF REVIEW, CBCDIF Normal [facility] Comment on above: Order Comment: Speci men Type: BLOOD SPECIMENOrdering Facility: [facility] Address: [address] [place] [address] Performed By: #### 5 7021-8, [id number] ####[facility]ORATORYCLIA [id number] [address] POTASSIUMon 02-10-2025 Potassium [Moles/Vol] 4.4 mmol/L Normal 3.7-5.1 [facility] Comment on above: Order Comment: Speci men Type: BLOOD SPECIMENOrdering Facility: [facility] Address: [address] [place] [address] Performed By: #### K 1 ####[facility]ORATORYCLIA [id number] [address] Urinalysis complete panel (U )on 02-10-2025 Bilirubin Ql (U) Negative Normal Negative [facility] Comment on above: Order Comment: Speci men Type: URINE SPECIMENOrdering Facility: [facility] Address: [address] [place] [address] Performed By: #### 2 4356-8 ####[facility]ORATORYCLIA [id number] [address] Clarity (Unsp spec) Clear Normal Clear [facility] Comment on above: Order Comment: Speci men Type: URINE SPECIMENOrdering Facility: [facility] Address: [address] [place] [address] Performed By: #### 2 4356-8 ####[facility]ORATORYCLIA [id number] [address] Color (U) Yellow Normal Yellow [facility] Comment on above: Order Comment: Speci men Type: URINE SPECIMENOrdering Facility: [facility] Address: [address] [place] [address] Performed By: #### 2 4356-8 ####[facility] LABORATORYCLIA [id number] [address] Epithelial cells LM.HPF (Urine sed) [#/Area] Few Normal [facility] Comment on above: Order Comment: Speci men Type: URINE SPECIMENOrdering Facility: [facility] Address: [address] [place] [address] Performed By: #### 2 4356-8 ####[facility]ORATORYCLIA [id number] [address] Glucose Test strip (U) [Mass/Vol] 2+ Abnormal Negative [facility] Comment on above: Order Comment: Speci men Type: URINE SPECIMENOrdering Facility: [facility] Address: [address] [place] [address] Performed By: #### 2 4356-8 ####[facility] LABORATORYCLIA [id number] [address] [place] Hemoglobin Ql (U) Negative Normal Negative [facility] Comment on above: Order Comment: Speci men Type: URINE SPECIMENOrdering Facility: [facility] Address: [address] [place] [address] Performed By: #### 2 4356-8 ####[facility]ED[facility]OR [facility] LABORATORYCLIA [id number] [address] [place] Ketones Ql (U) Negative Normal Negative [facility] Comment on above: Order Comment: Speci men Type: URINE SPECIMENOrdering Facility: [facility] Address: [address] [place] [address] Performed By: #### 2 4356-8 ####[facility]ORATORYCLIA [id number] [address] Leukocyte esterase Test strip Ql (U) Negative Normal Negative [facility] Comment on above: Order Comment: Speci men Type: URINE SPECIMENOrdering Facility: [facility] Address: [address] [place] [address] Performed By: #### 2 4356-8 ####[facility] LABORATORYCLIA [id number] [place] [id number] [place] Nitrite Ql (U) Negative Normal Negative [facility] Comment on above: Order Comment: Speci men Type: URINE SPECIMENOrdering Facility: [facility] Address: [address] [place] [address] Performed By: #### 2 4356-8 ####[facility] LABORATORYCLIA [id number] [place] [address] [place] pH (U) 7.0 [pH] Normal 5.0-8.0 [facility] Comment on above: Order Comment: Speci men Type: URINE SPECIMENOrdering Facility: [facility] Address: [address] [place] [address] Performed By: #### 2 4356-8 ####[facility]ITALCLIA [id number] [address] Protein (U) [Mass/Vol] 1+ Abnormal Negative [facility] Comment on above: Order Comment: Speci men Type: URINE SPECIMENOrdering Facility: [facility] Address: [address] [place] [address] Performed By: #### 2 4356-8 ####[facility] LABORATORYCLIA [id number] [place] [id number] [place] RBC LM.HPF (Urine sed) [#/Area] 3-5 /HPF Abnormal 0-3 /HPF [facility] Comment on above: Order Comment: Speci men Type: URINE SPECIMENOrdering Facility: [facility] Address: [address] [place] [address] Performed By: #### 2 4356-8 ####[facility] LABORATORYCLIA [id number] [address] Specific gravity (U) [Rel density] 1.010 Normal 1.005-1.030 [facility] Comment on above: Order Comment: Speci men Type: URINE SPECIMENOrdering Facility: [facility] Address: [address] [place] [address] Performed By: #### 2 4356-8 ####[facility] LABORATORYCLIA [id number] [address] [place] Urobilinogen Ql (U) 0.2 EU/dL Normal 0.2 EU/d L, 1.0 EU/dL [facility] Comment on above: Order Comment: Speci men Type: URINE SPECIMENOrdering Facility: [facility] Address: [address] [place] [address] Performed By: #### 2 4356-8 ####[facility] LABORATORYCLIA [id number] [place] [address] [place] WBC LM.HPF (Urine sed) [#/Area] 0-5 /HPF Normal 0-5 /HPF [facility] Comment on above: Order Comment: Speci men Type: URINE SPECIMENOrdering Facility: [facility] Address: [address] [place] [address] Performed By: #### 2 4356-8 ####[facility] LABORATORYCLIA [id number] [place] [address] [place] XR CHEST 2V FRONTAL/LATon XR CHEST 2V FRONTAL/LAT Normal [facility] CNPNon 02-09-2025 CNPN Normal [facility] CNPNon 02-08-2025 CNPN Normal [facility] CBC W Auto Differential pane l (Bld)on 02-05-2025 Basophils (Bld) [#/Vol] 10*3/uL Normal <0.11 [facility] Comment on above: Order Comment: Speci men Type: BLOOD SPECIMENOrdering Facility: [facility] Address: [address] [place] [address] Performed By: #### 5 7021-8 ####[facility] REJI [facility] CENTERERNESTO [id number] [place] [address] [place] Basophils/100 WBC (Bld) 0.5 % Normal [facility] Comment on above: Order Comment: Speci men Type: BLOOD SPECIMENOrdering Facility: [facility] Address: [address] [place] [address] Performed By: #### 5 7021-8 ####[facility] ZARIAYAYAA [id number] [place] [address] [place] Differential cell count method Nom (Bld) Auto Normal [facility] Comment on above: Order Comment: Speci men Type: BLOOD SPECIMENOrdering Facility: [facility] Address: [address] [place] [address] Performed By: #### 5 7021-8 ####[facility] KHLOEEMERITAA [id number] [place] [address] [place] Eosinophils (Bld) [#/Vol] 0.10 10*3/uL Normal <0.46 [facility] Comment on above: Order Comment: Speci men Type: BLOOD SPECIMENOrdering Facility: [facility] Address: [address] [place] [address] Performed By: #### 5 7021-8 ####[facility] KHLOEEMERITAA [id number] [place] [address] [place] Eosinophils/100 WBC (Bld) 2.4 % Normal [facility] Comment on above: Order Comment: Speci men Type: BLOOD SPECIMENOrdering Facility: [facility] Address: [address] [place] [address] Performed By: #### 5 7021-8 ####[facility] ZARIASANDRALIA [id number] [place] [address] [place] Erythrocyte distribution width (RBC) [Ratio] 14.2 % Normal 11.5-15.0 [facility] Comment on above: Order Comment: Speci men Type: BLOOD SPECIMENOrdering Facility: [facility] Address: [address] [place] [address] Performed By: #### 5 7021-8 ####[facility] FOR CHILDRENSANDRALIA [id number] [place] [address] [place] Hematocrit (Bld) [Volume fraction] 28.5 % Low 36.0-46.0 [facility] Comment on above: Order Comment: Speci men Type: BLOOD SPECIMENOrdering Facility: [facility] Address: [address] [place] [address] Performed By: #### 5 7021-8 ####[facility] [id number] [place] [address] [place] Hemoglobin (Bld) [Mass/Vol] 9.6 g/dL Low 11.5-15.5 [facility] Comment on above: Order Comment: Speci men Type: BLOOD SPECIMENOrdering Facility: [facility] Address: [address] [place] [address] Performed By: #### 5 7021-8 ####[facility] [id number] [place] [address] [place] Immature granulocytes (Bld) [#/Vol] 10*3/uL Normal <0.10 [facility] Comment on above: Order Comment: Speci men Type: BLOOD SPECIMENOrdering Facility: [facility] Address: [address] [place] [address] Performed By: #### 5 7021-8 ####[facility] [id number] [place] [address] [place] Immature granulocytes/100 WBC (Bld) 0.5 % Normal [facility] Comment on above: Order Comment: Speci men Type: BLOOD SPECIMENOrdering Facility: [facility] Address: [address] [place] [address] Performed By: #### 5 7021-8 ####[facility] FOR CHILDRENNCLIA [id number] [place] [address] [place] Lymphocytes (Bld) [#/Vol] 0.71 10*3/uL Low 1.00-4.00 [facility] Comment on above: Order Comment: Speci men Type: BLOOD SPECIMENOrdering Facility: [facility] Address: [address] [place] [address] Performed By: #### 5 7021-8 ####[facility] [id number] [place] [address] [place] Lymphocytes/100 WBC (Bld) 17.0 % Normal [facility] Comment on above: Order Comment: Speci men Type: BLOOD SPECIMENOrdering Facility: [facility] Address: [address] [place] [address] Performed By: #### 5 7021-8 ####[facility] [id number] [place] [address] [place] MCH (RBC) [Entitic mass] 31.2 pg Normal 26.0-34.0 [facility] Comment on above: Order Comment: Speci men Type: BLOOD SPECIMENOrdering Facility: [facility] Address: [address] [place] [address] Performed By: #### 5 7021-8 ####[facility] [id number] [place] [address] [place] MCHC (RBC) [Mass/Vol] 33.7 g/dL Normal 30.5-36.0 [facility] Comment on above: Order Comment: Speci men Type: BLOOD SPECIMENOrdering Facility: [facility] Address: [address] [place] [address] Performed By: #### 5 7021-8 ####[facility] [id number] [place] [address] [place] MCV (RBC) [Entitic vol] 92.5 fL Normal 80.0-100.0 [facility] Comment on above: Order Comment: Speci men Type: BLOOD SPECIMENOrdering Facility: [facility] Address: [address] [place] [address] Performed By: #### 5 7021-8 ####[facility] MILLTOWNCLIA [id number] [place] [address] [place] Monocytes (Bld) [#/Vol] 0.35 10*3/uL Normal <0.87 [facility] Comment on above: Order Comment: Speci men Type: BLOOD SPECIMENOrdering Facility: [facility] Address: [address] [place] [address] Performed By: #### 5 7021-8 ####[facility] MILLWNCLIA [id number] [place] [address] [place] Monocytes/100 WBC (Bld) 8.4 % Normal [facility] Comment on above: Order Comment: Speci men Type: BLOOD SPECIMENOrdering Facility: [facility] Address: [address] [place] [address] Performed By: #### 5 7021-8 ####[facility] FOR CHILDRENNCLIA [id number] [place] [address] [place] Neutrophils (Bld) [#/Vol] 2.98 10*3/uL Normal 1.45-7.50 [facility] Comment on above: Order Comment: Speci men Type: BLOOD SPECIMENOrdering Facility: [facility] Address: [address] [place] [address] Performed By: #### 5 7021-8 ####[facility] MILLTOWNCLIA [id number] [place] [address] [place] Neutrophils/100 WBC (Bld) 71.2 % Normal [facility] Comment on above: Order Comment: Speci men Type: BLOOD SPECIMENOrdering Facility: [facility] Address: [address] [place] [address] Performed By: #### 5 7021-8 ####[facility] MILLWNCLIA [id number] [place] [address] [place] Nucleated RBC (Bld) [#/Vol] 10*3/uL Normal <0.01 [facility] Comment on above: Order Comment: Speci men Type: BLOOD SPECIMENOrdering Facility: [facility] Address: [address] [place] [address] Performed By: #### 5 7021-8 ####[facility] FOR CHILDRENCHRISTA [id number] [place] [address] [place] Nucleated RBC/100 WBC (Bld) [Ratio] 0.0 /100 WBC Normal [facility] Comment on above: Order Comment: Speci men Type: BLOOD SPECIMENOrdering Facility: [facility] Address: [address] [place] [address] Performed By: #### 5 7021-8 ####[facility] FOR CHILDRENSANDRAERNESTO [id number] [place] [address] [place] Platelet mean volume (Bld) [Entitic vol] 12.2 fL Normal 9.0-12.7 [facility] Comment on above: Order Comment: Speci men Type: BLOOD SPECIMENOrdering Facility: [facility] Address: [address] [place] [address] Performed By: #### 5 7021-8 ####[facility] FOR CHILDRENYAYAKush [id number] [place] [address] [place] Platelets (Bld) [#/Vol] 131 10*3/uL Low 150-400 [facility] Comment on above: Order Comment: Speci men Type: BLOOD SPECIMENOrdering Facility: [facility] Address: [address] [place] [address] Performed By: #### 5 7021-8 ####[facility] FOR CHILDRENSANDRALIA [id number] [place] [address] [place] RBC (Bld) [#/Vol] 3.08 10*6/uL Low 3.90-5.20 [facility] Comment on above: Order Comment: Speci men Type: BLOOD SPECIMENOrdering Facility: [facility] Address: [address] [place] [address] Performed By: #### 5 7021-8 ####[facility] [id number] [place] [address] [place] WBC (Bld) [#/Vol] 4.18 10*3/uL Normal 3.70-11.00 [facility] Comment on above: Order Comment: Speci men Type: BLOOD SPECIMENOrdering Facility: [facility] Address: [address] [place] [address] Performed By: #### 5 7021-8 ####[facility]ILDRENNCPR[facility] [id number] [place] [address] [place] CNPNon 02-05-2025 CNPN Normal [facility] XR CHEST 2V FRONTAL/LATon XR CHEST 2V FRONTAL/LAT Normal [facility] XR Chest PA and Lateralon IMPRESSION: New airspace disease in the left lower lobe is consistent with pneumonia. Follow-up to document resolution recommended Program Engagement Director: AMBER Transcribe Date/Time: Feb 05 2025 12:27P Dictated by : VELASQUEZ BENTON MD This examination was interpreted and the report reviewed and electronically signed by: VELASQUEZ BENTON MD on Feb 05 2025 12:29PM [facility] DIVISION OF RADIOLOGY * * *Final Report* [...] soft tissues: Unremarkable. DIVISION OF RADIOLOGY Provider, Aisah Gordillo - 02/05/2025 * * *Final Report* [...] with pneumonia. Follow-up to document resolution recommended Program Engagement Director: AMBER Transcribe Date/Time: Feb 05 2025 12:27P Dictated by : VELASQUEZ BENTON MD This examination was interpreted and the report reviewed and electronically signed by: VELAQSUEZ BENTON MD on Feb 05 2025 12:29PM EST [facility] Radiology Study observation (narrative) [facility] XR Chest PA and LateralOrder ed By: Ccf Provider on 02-05-2025 [facility] CNOVon 02-04-[address] [facility] CNPNon 02-04-2025 CNPN Normal [facility] CNPNon 02-03-2025 CNPN Normal [facility] CNOVon 02-01-2025 CNOV Normal [facility] CNPNon 01-29-2025 CNPN Normal [facility] CBC W Auto Differential pane l (Bld)on 01-28-2025 Basophils (Bld) [#/Vol] 0.04 10*3/uL Normal <0.11 [facility] Comment on above: Order Comment: Speci men Type: BLOOD SPECIMENOrdering Facility: [facility] Address: [address] [place] [address] Performed By: #### 5 7021-8 ####[facility] POINTWNCLIA [id number] [place] [address] [place] Basophils/100 WBC (Bld) 0.4 % Normal [facility] Comment on above: Order Comment: Speci men Type: BLOOD SPECIMENOrdering Facility: [facility] Address: [address] [place] [address] Performed By: #### 5 7021-8 ####[facility] HOSPITALLIA [id number] [place] [address] [place] Differential cell count method Nom (Bld) Auto Normal [facility] Comment on above: Order Comment: Speci men Type: BLOOD SPECIMENOrdering Facility: [facility] Address: [address] [place] [address] Performed By: #### 5 7021-8 ####[facility] HOSPITALLIA [id number] [place] [address] [place] Eosinophils (Bld) [#/Vol] 0.16 10*3/uL Normal <0.46 [facility] Comment on above: Order Comment: Speci men Type: BLOOD SPECIMENOrdering Facility: [facility] Address: [address] [place] [address] Performed By: #### 5 7021-8 ####[facility] HOSPITALLIA [id number] [place] [address] [place] Eosinophils/100 WBC (Bld) 1.7 % Normal [facility] Comment on above: Order Comment: Speci men Type: BLOOD SPECIMENOrdering Facility: [facility] Address: [address] [place] [address] Performed By: #### 5 7021-8 ####[facility] FOR CHILDRENNCLIA [id number] [place] [address] [place] Erythrocyte distribution width (RBC) [Ratio] 15.1 % High 11.5-15.0 [facility] Comment on above: Order Comment: Speci men Type: BLOOD SPECIMENOrdering Facility: [facility] Address: [address] [place] [address] Performed By: #### 5 7021-8 ####[facility] HOSPITALLI [id number] [place] [address] [place] Hematocrit (Bld) [Volume fraction] 32.3 % Low 36.0-46.0 [facility] Comment on above: Order Comment: Speci men Type: BLOOD SPECIMENOrdering Facility: [facility] Address: [address] [place] [address] Performed By: #### 5 7021-8 ####[facility] HOSPITALLIA [id number] [place] [address] [place] Hemoglobin (Bld) [Mass/Vol] 10.6 g/dL Low 11.5-15.5 [facility] Comment on above: Order Comment: Speci men Type: BLOOD SPECIMENOrdering Facility: [facility] Address: [address] [place] [address] Performed By: #### 5 7021-8 ####[facility] HOSPITALLI [id number] [place] [address] [place] Immature granulocytes (Bld) [#/Vol] 0.04 10*3/uL Normal <0.10 [facility] Comment on above: Order Comment: Speci men Type: BLOOD SPECIMENOrdering Facility: [facility] Address: [address] [place] [address] Performed By: #### 5 7021-8 ####[facility] [id number] [place] [address] [place] Immature granulocytes/100 WBC (Bld) 0.4 % Normal [facility] Comment on above: Order Comment: Speci men Type: BLOOD SPECIMENOrdering Facility: [facility] Address: [address] [place] [address] Performed By: #### 5 7021-8 ####[facility] FOR CHILDRENCHRISTA [id number] [place] [address] [place] Lymphocytes (Bld) [#/Vol] 1.21 10*3/uL Normal 1.00-4.00 [facility] Comment on above: Order Comment: Speci men Type: BLOOD SPECIMENOrdering Facility: [facility] Address: [address] [place] [address] Performed By: #### 5 7021-8 ####[facility] CHILDRENCHRISTA [id number] [place] [address] [place] Lymphocytes/100 WBC (Bld) 12.8 % Normal [facility] Comment on above: Order Comment: Speci men Type: BLOOD SPECIMENOrdering Facility: [facility] Address: [address] [place] [address] Performed By: #### 5 7021-8 ####[facility] FOR CHILDRENNCERNESTO [id number] [place] [address] [place] MCH (RBC) [Entitic mass] 30.7 pg Normal 26.0-34.0 [facility] Comment on above: Order Comment: Speci men Type: BLOOD SPECIMENOrdering Facility: [facility] Address: [address] [place] [address] Performed By: #### 5 7021-8 ####[facility]ILDRENNCPR[facility] [id number] [place] [address] [place] MCHC (RBC) [Mass/Vol] 32.8 g/dL Normal 30.5-36.0 [facility] Comment on above: Order Comment: Speci men Type: BLOOD SPECIMENOrdering Facility: [facility] Address: [address] [place] [address] Performed By: #### 5 7021-8 ####[facility] KHLOEElissaNCERNESTO [id number] [place] [address] [place] MCV (RBC) [Entitic vol] 93.6 fL Normal 80.0-100.0 [facility] Comment on above: Order Comment: Speci men Type: BLOOD SPECIMENOrdering Facility: [facility] Address: [address] [place] [address] Performed By: #### 5 7021-8 ####[facility] FOR CHILDRENNCLI [id number] [place] [address] [place] Monocytes (Bld) [#/Vol] 1.09 10*3/uL High <0.87 [facility] Comment on above: Order Comment: Speci men Type: BLOOD SPECIMENOrdering Facility: [facility] Address: [address] [place] [address] Performed By: #### 5 7021-8 ####[facility] CHILDRENNCLIA [id number] [place] [address] [place] Monocytes/100 WBC (Bld) 11.5 % Normal [facility] Comment on above: Order Comment: Speci men Type: BLOOD SPECIMENOrdering Facility: [facility] Address: [address] [place] [address] Performed By: #### 5 7021-8 ####[facility] CHILDRENNCLIA [id number] [place] [address] [place] Neutrophils (Bld) [#/Vol] 6.94 10*3/uL Normal 1.45-7.50 [facility] Comment on above: Order Comment: Speci men Type: BLOOD SPECIMENOrdering Facility: [facility] Address: [address] [place], [place] [address] Performed By: #### 5 7021-8 ####[facility]ON[facility] POINTWSANDRALIA [id number] [place] [address] [place] Neutrophils/100 WBC (Bld) 73.2 % Normal [facility] Comment on above: Order Comment: Speci men Type: BLOOD SPECIMENOrdering Facility: [facility] Address: [address] [place] [address] Performed By: #### 5 7021-8 ####[facility] HOSPITALLIA [id number] [place] [address] [place] Nucleated RBC (Bld) [#/Vol] 10*3/uL Normal <0.01 [facility] Comment on above: Order Comment: Speci men Type: BLOOD SPECIMENOrdering Facility: [facility] Address: [address] [place] [address] Performed By: #### 5 7021-8 ####[facility] HOSPITALA [id number] [place] [address] [place] Nucleated RBC/100 WBC (Bld) [Ratio] 0.0 /100 WBC Normal [facility] Comment on above: Order Comment: Speci men Type: BLOOD SPECIMENOrdering Facility: [facility] Address: [address] [place] [address] Performed By: #### 5 7021-8 ####[facility] HOSPITALA [id number] [place] [address] [place] Platelet mean volume (Bld) [Entitic vol] 12.4 fL Normal 9.0-12.7 [facility] Comment on above: Order Comment: Speci men Type: BLOOD SPECIMENOrdering Facility: [facility] Address: [address] [place] [address] Performed By: #### 5 7021-8 ####[facility] HOSPITALLI [id number] [place] [address] [place] Platelets (Bld) [#/Vol] 310 10*3/uL Normal 150-400 [facility] Comment on above: Order Comment: Speci men Type: BLOOD SPECIMENOrdering Facility: [facility] Address: [address] [place] [address] Performed By: #### 5 7021-8 ####[facility] HOSPITALMURIELA [id number] [place] [address] [place] RBC (Bld) [#/Vol] 3.45 10*6/uL Low 3.90-5.20 [facility] Comment on above: Order Comment: Speci men Type: BLOOD SPECIMENOrdering Facility: [facility] Address: [address] [place] [address] Performed By: #### 5 7021-8 ####[facility] HOSPITALKush [id number] [place] [address] [place] WBC (Bld) [#/Vol] 9.48 10*3/uL Normal 3.70-11.00 [facility] Comment on above: Order Comment: Speci men Type: BLOOD SPECIMENOrdering Facility: [facility] Address: [address] [place] [address] Performed By: #### 5 7021-8 ####[facility] [id number] [place] [address] [place] CNPNon 01-28-2025 CNPN Normal [facility] Comprehensive metabolic 2000 panelon 01-28-2025 Albumin [Mass/Vol] 3.7 g/dL Low 3.9-4.9 [facility] Comment on above: Order Comment: Speci men Type: BLOOD SPECIMENOrdering Facility: [facility] Address: [address] [place] [address] Performed By: #### 2 4323-8 ####JAYLYN DUVAL [place] LABCLIA [id number] [place] [address] [place] ALP [Catalytic activity/Vol] 148 U/L High 34-123 [facility] Comment on above: Order Comment: Speci men Type: BLOOD SPECIMENOrdering Facility: [facility] Address: [address] [place] [address] Performed By: #### 2 4323-8 ####[facility] [place] LABCLIA [id number] [facility] [place] [address] [place] ALT With P-5'-P [Catalytic activity/Vol] 28 U/L Normal 7-38 [facility] Comment on above: Order Comment: Speci men Type: BLOOD SPECIMENOrdering Facility: [facility] Address: [address] [place] [address] Performed By: #### 2 4323-8 ####[facility] [place] LABCLIA [id number] [place] [address] [place] Anion gap [Moles/Vol] 13 mmol/L Normal 8-15 [facility] Comment on above: Order Comment: Speci men Type: BLOOD SPECIMENOrdering Facility: [facility] Address: [address] [place] [address] Performed By: #### 2 4323-8 ####[facility] [place] LABCLIA [id number] [place] [address] [place] AST With P-5'-P [Catalytic activity/Vol] 26 U/L Normal 13-35 [facility] Comment on above: Order Comment: Speci men Type: BLOOD SPECIMENOrdering Facility: [facility] Address: [address] [place] [address] Performed By: #### 2 4323-8 ####[facility] [place] LABCLIA [id number] [place] [address] [place] Bilirubin [Mass/Vol] 2.1 mg/dL High 0.2-1.3 [facility] Comment on above: Order Comment: Speci men Type: BLOOD SPECIMENOrdering Facility: [facility] Address: [address] [place] [address] Performed By: #### 2 4323-8 ####[facility] [place] LABCLIA [id number] [place] [address] [place] Calcium [Mass/Vol] 9.4 mg/dL Normal 8.5-10.2 [facility] Comment on above: Order Comment: Speci men Type: BLOOD SPECIMENOrdering Facility: [facility] Address: [address] [place] [address] Performed By: #### 2 4323-8 ####[facility] [place] LABCLIA [id number] [place] [address] [place] Chloride [Moles/Vol] 97 mmol/L Low 98-107 [facility] Comment on above: Order Comment: Speci men Type: BLOOD SPECIMENOrdering Facility: [facility] Address: [address] [place] [address] Performed By: #### 2 4323-8 ####[facility] [place] LABCLIA [id number] [place] [address] [place] CO2 [Moles/Vol] 21 mmol/L Low 22-30 [facility] Comment on above: Order Comment: Speci men Type: BLOOD SPECIMENOrdering Facility: [facility] Address: [address] [place] [address] Performed By: #### 2 4323-8 ####[facility] [place] LABCLIA [id number] [facility] [place] [address] [place] Creatinine [Mass/Vol] 0.69 mg/dL Normal 0.58-0.96 [facility] Comment on above: Order Comment: Speci men Type: BLOOD SPECIMENOrdering Facility: [facility] Address: [address] [place] [address] Performed By: #### 2 4323-8 ####[facility] [place] LABCLIA [id number] [facility] [place] [address] [place] Creatinine and Glomerular filtration rate.predicted panel (S/P/Bld) 86 mL/min/1.73m??? Normal >=60 [facility] Comment on above: Order Comment: Dayron stinson Type: BLOOD SPECIMENOrdering Facility: [facility] Address: [address] [place] [address] Result Comment: Kya mated Glomerular Filtration Rate [...] actual GFR. Performed By: #### 2 4323-8 ####JAYLYN NICE LABGennius [id number] [place] [address] [place] Glucose [Mass/Vol] 358 mg/dL High 74-99 [facility] Comment on above: Order Comment: Dayron stinson Type: BLOOD SPECIMENOrdering Facility: [facility] Address: [address] [place] [address] Result Comment: The [place] Diabetes Association (ADA) provides guidance for cutoff [...] Standards of Medical Care in Diabetes 2016, [place] Diabetes Association. Diabetes Care. 2016.39(Suppl 1). Performed By: #### 2 4323-8 ####Spirus MedicalVASQUEZ NICE LABCLIA [id number] [place] [address] [place] Potassium [Moles/Vol] 4.3 mmol/L Normal 3.7-5.1 [facility] Comment on above: Order Comment: Dayron stinson Type: BLOOD SPECIMENOrdering Facility: [facility] Address: [address] [place] [id number] Performed By: #### 2 4323-8 ####[facility] [place] LABCLIA [id number] [place] [address] [place] Protein [Mass/Vol] 6.6 g/dL Normal 6.3-8.0 [facility] Comment on above: Order Comment: Speci men Type: BLOOD SPECIMENOrdering Facility: [facility] Address: [address] [place] [address] Performed By: #### 2 4323-8 ####[facility] [place] LABCLIA [id number] [place] [address] [place] Sodium [Moles/Vol] 131 mmol/L Low 136-144 [facility] Comment on above: Order Comment: Speci men Type: BLOOD SPECIMENOrdering Facility: [facility] Address: [address] [place] [address] Performed By: #### 2 4323-8 ####[facility] [place] LABCLIA [id number] [place] [address] [place] Urea nitrogen [Mass/Vol] 15 mg/dL Normal 7-21 [facility] Comment on above: Order Comment: Speci men Type: BLOOD SPECIMENOrdering Facility: [facility] Address: [address] [place] [address] Performed By: #### 2 4323-8 ####[facility] [place] LABCLIA [id number] [place] [address] [place] ANES POSTPROC EVALon 025 ANES POSTPROC EVAL Normal [facility] CNPNon 01-26-2025 CNPN Normal [facility] CNPTOUTREACHon 01-26-2025 CNPTOUTREACH Normal [facility] Bilirub Conj SerPl-mCncon Bilirubin.conjugated [Mass/Vol] 1.9 mg/dL High <0.3 [facility] Comment on above: Order Comment: Speci men Type: BLOOD SPECIMENOrdering Facility: [facility] Address: [address] [place] [address] Performed By: #### 2 4323-8, 38172-9 ####[facility] [id number] [place] [address] [place] CBC W Auto Differential pane l (Bld)on 01-25-2025 Basophils (Bld) [#/Vol] 0.05 10*3/uL [facility] Basophils/100 WBC (Bld) 0.8 % [facility] Differential cell count method Nom (Bld) Auto [facility] Eosinophils (Bld) [#/Vol] 0.11 10*3/uL [facility] Eosinophils/100 WBC (Bld) 1.7 % [facility] Erythrocyte distribution width (RBC) [Ratio] 15.5 % High 11.5 - 15.0 % [facility] Hematocrit (Bld) [Volume fraction] 33.1 % Low 36.0 - 46.0 % [facility] Hemoglobin (Bld) [Mass/Vol] 10.8 g/dL Low 11.5 - 15.5 g/dL [facility] Immature granulocytes (Bld) [#/Vol] 0.04 10*3/uL [facility] Immature granulocytes/100 WBC (Bld) 0.6 % [facility] Interpretation and review of laboratory results Abnormal [facility] Lymphocytes (Bld) [#/Vol] 0.97 10*3/uL Low [facility] Lymphocytes/100 WBC (Bld) 14.7 % [facility] MCH (RBC) [Entitic mass] 30.9 pg 26.0 - 34.0 pg [facility] MCHC (RBC) [Mass/Vol] 32.6 g/dL 30.5 - 36.0 g/dL [facility] MCV (RBC) [Entitic vol] 94.8 fL 80.0 - 100.0 fL [facility] Monocytes (Bld) [#/Vol] 0.96 10*3/uL High [facility] Monocytes/100 WBC (Bld) 14.5 % [facility] Neutrophils (Bld) [#/Vol] 4.48 10*3/uL [facility] Neutrophils/100 WBC (Bld) 67.7 % [facility] Nucleated RBC (Bld) [#/Vol] [facility] Nucleated RBC/100 WBC (Bld) [Ratio] 0 % /100 WBC [facility] Platelet mean volume (Bld) [Entitic vol] 12.4 fL 9.0 - 12.7 fL [facility] Platelets (Bld) [#/Vol] 274 10*3/uL [facility] RBC (Bld) [#/Vol] 3.49 10*6/uL Low 3.90 - 5.2 0 m/uL [facility] WBC (Bld) [#/Vol] 6.61 10*3/uL [facility] Basophils (Bld) [#/Vol] 0.05 10*3/uL Normal <0.11 [facility] Comment on above: Order Comment: Speci men Type: BLOOD SPECIMENOrdering Facility: [facility] Address: [address] [place] [address] Performed By: #### 5 7021-8 ####[facility] [id number] [place] [address] [place] Basophils/100 WBC (Bld) 0.8 % Normal [facility] Comment on above: Order Comment: Speci men Type: BLOOD SPECIMENOrdering Facility: [facility] Address: [address] [place] [address] Performed By: #### 5 7021-8 ####[facility] [id number] [place] [address] [place] Differential cell count method Nom (Bld) Auto Normal [facility] Comment on above: Order Comment: Speci men Type: BLOOD SPECIMENOrdering Facility: [facility] Address: [address] [place] [address] Performed By: #### 5 7021-8 ####[facility] HOSPITALA [id number] [place] [address] [place] Eosinophils (Bld) [#/Vol] 0.11 10*3/uL Normal <0.46 [facility] Comment on above: Order Comment: Speci men Type: BLOOD SPECIMENOrdering Facility: [facility] Address: [address] [place] [address] Performed By: #### 5 7021-8 ####[facility] GEREMIASA [id number] [place] [address] [place] Eosinophils/100 WBC (Bld) 1.7 % Normal [facility] Comment on above: Order Comment: Speci men Type: BLOOD SPECIMENOrdering Facility: [facility] Address: [address] [place] [address] Performed By: #### 5 7021-8 ####[facility] KHLOETARRYTOWNYAYAA [id number] [place] [address] [place] Erythrocyte distribution width (RBC) [Ratio] 15.5 % High 11.5-15.0 [facility] Comment on above: Order Comment: Speci men Type: BLOOD SPECIMENOrdering Facility: [facility] Address: [address] [place] [address] Performed By: #### 5 7021-8 ####[facility] CHILDRENYAYAA [id number] [place] [address] [place] Hematocrit (Bld) [Volume fraction] 33.1 % Low 36.0-46.0 [facility] Comment on above: Order Comment: Speci men Type: BLOOD SPECIMENOrdering Facility: [facility] Address: [address] [place] [address] Performed By: #### 5 7021-8 ####[facility] CHILDRENSANDRALIA [id number] [place] [address] [place] Hemoglobin (Bld) [Mass/Vol] 10.8 g/dL Low 11.5-15.5 [facility] Comment on above: Order Comment: Speci men Type: BLOOD SPECIMENOrdering Facility: [facility] Address: [address] [place] [address] Performed By: #### 5 7021-8 ####[facility] HOSPITALLIA [id number] [place] [address] [place] Immature granulocytes (Bld) [#/Vol] 0.04 10*3/uL Normal <0.10 [facility] Comment on above: Order Comment: Speci men Type: BLOOD SPECIMENOrdering Facility: [facility] Address: [address] [place] [address] Performed By: #### 5 7021-8 ####[facility] [id number] [place] [address] [place] Immature granulocytes/100 WBC (Bld) 0.6 % Normal [facility] Comment on above: Order Comment: Speci men Type: BLOOD SPECIMENOrdering Facility: [facility] Address: [address] [place] [address] Performed By: #### 5 7021-8 ####[facility] [id number] [place] [address] [place] Lymphocytes (Bld) [#/Vol] 0.97 10*3/uL Low 1.00-4.00 [facility] Comment on above: Order Comment: Speci men Type: BLOOD SPECIMENOrdering Facility: [facility] Address: [address] [place] [address] Performed By: #### 5 7021-8 ####[facility] [id number] [place] [address] [place] Lymphocytes/100 WBC (Bld) 14.7 % Normal [facility] Comment on above: Order Comment: Speci men Type: BLOOD SPECIMENOrdering Facility: [facility] Address: [address] [place] [address] Performed By: #### 5 7021-8 ####[facility] [id number] [place] [address] [place] MCH (RBC) [Entitic mass] 30.9 pg Normal 26.0-34.0 [facility] Comment on above: Order Comment: Speci men Type: BLOOD SPECIMENOrdering Facility: [facility] Address: [address] [place] [address] Performed By: #### 5 7021-8 ####[facility] [id number] [place] [address] [place] MCHC (RBC) [Mass/Vol] 32.6 g/dL Normal 30.5-36.0 [facility] Comment on above: Order Comment: Speci men Type: BLOOD SPECIMENOrdering Facility: [facility] Address: [address] [place] [address] Performed By: #### 5 7021-8 ####[facility] [id number] [place] [address] [place] MCV (RBC) [Entitic vol] 94.8 fL Normal 80.0-100.0 [facility] Comment on above: Order Comment: Speci men Type: BLOOD SPECIMENOrdering Facility: [facility] Address: [address] [place] [address] Performed By: #### 5 7021-8 ####[facility] [id number] [place] [address] [place] Monocytes (Bld) [#/Vol] 0.96 10*3/uL High <0.87 [facility] Comment on above: Order Comment: Speci men Type: BLOOD SPECIMENOrdering Facility: [facility] Address: [address] [place] [address] Performed By: #### 5 7021-8 ####[facility] [id number] [place] [address] [place] Monocytes/100 WBC (Bld) 14.5 % Normal [facility] Comment on above: Order Comment: Speci men Type: BLOOD SPECIMENOrdering Facility: [facility] Address: [address] [place] [address] Performed By: #### 5 7021-8 ####[facility] MILLTOWNCLIA [id number] [place] [address] [place] Neutrophils (Bld) [#/Vol] 4.48 10*3/uL Normal 1.45-7.50 [facility] Comment on above: Order Comment: Speci men Type: BLOOD SPECIMENOrdering Facility: [facility] Address: [address] [place] [address] Performed By: #### 5 7021-8 ####[facility] MILLTOWSANDRALIA [id number] [place] [address] [place] Neutrophils/100 WBC (Bld) 67.7 % Normal [facility] Comment on above: Order Comment: Speci men Type: BLOOD SPECIMENOrdering Facility: [facility] Address: [address] [place] [address] Performed By: #### 5 7021-8 ####[facility] BETYWNCLIA [id number] [place] [address] [place] Nucleated RBC (Bld) [#/Vol] 10*3/uL Normal <0.01 [facility] Comment on above: Order Comment: Speci men Type: BLOOD SPECIMENOrdering Facility: [facility] Address: [address] [place] [address] Performed By: #### 5 7021-8 ####[facility] MILLTOWNCLIA [id number] [place] [address] [place] Nucleated RBC/100 WBC (Bld) [Ratio] 0.0 /100 WBC Normal [facility] Comment on above: Order Comment: Speci men Type: BLOOD SPECIMENOrdering Facility: [facility] Address: [address] [place] [address] Performed By: #### 5 7021-8 ####[facility] KHLOETOWNCLIA [id number] [place] [address] [place] Platelet mean volume (Bld) [Entitic vol] 12.4 fL Normal 9.0-12.7 [facility] Comment on above: Order Comment: Speci men Type: BLOOD SPECIMENOrdering Facility: [facility] Address: [address] [place] [address] Performed By: #### 5 7021-8 ####[facility] KHLOETARRYTOWNSANDRALIA [id number] [place] [address] [place] Platelets (Bld) [#/Vol] 274 10*3/uL Normal 150-400 [facility] Comment on above: Order Comment: Speci men Type: BLOOD SPECIMENOrdering Facility: [facility] Address: [address] [place] [address] Performed By: #### 5 7021-8 ####[facility] CHILDRENYAYAA [id number] [place] [address] [place] RBC (Bld) [#/Vol] 3.49 10*6/uL Low 3.90-5.20 [facility] Comment on above: Order Comment: Speci men Type: BLOOD SPECIMENOrdering Facility: [facility] Address: [address] [place] [address] Performed By: #### 5 7021-8 ####[facility] CHILDRENSANDRALIA [id number] [place] [address] [place] WBC (Bld) [#/Vol] 6.61 10*3/uL Normal 3.70-11.00 [facility] Comment on above: Order Comment: Speci men Type: BLOOD SPECIMENOrdering Facility: [facility] Address: [address] [place] [address] Performed By: #### 5 7021-8 ####[facility] CHILDRENNCLIA [id number] [address] [place] CNOVSPon 01-25-2025 CNOVSP Normal [facility] CNPNon 01-25-2025 CNPN Normal [facility] Comprehensive metabolic 2000 panelOrdered By: Angelia Paez on 01-25-2025 Albumin [Mass/Vol] 3.8 g/dL Low 3.9 - 4.9 g/dL [facility] ALP [Catalytic activity/Vol] 170 U/L High 34 - 123 U/L [facility] ALT [Catalytic activity/Vol] 37 U/L 7 - 38 U/L [facility] Anion gap [Moles/Vol] 10 mmol/L 8 - 15 mmol/L [facility] AST [Catalytic activity/Vol] 28 U/L 13 - 35 U/L [facility] Bilirubin [Mass/Vol] 2.6 mg/dL High 0.2 - 1 .3 mg/dL [facility] Calcium [Mass/Vol] 9.4 mg/dL 8.5 - 10. 2 mg/dL [facility] Chloride [Moles/Vol] 101 mmol/L 98 - 10 7 mmol/L [facility] CO2 [Moles/Vol] 21 mmol/L Low 22 - 30 mmol/L [facility] Creatinine [Mass/Vol] 0.58 mg/dL 0.58 - 0.96 mg/dL [facility] GFR/1.73 sq M.predicted among non-blacks MDRD (S/P/Bld) [Vol rate/Area] 89 mL/min/{1.73_m2} - PINF [facility] Comment on above: Estimated Glomerular Filtration [...] 325 mg/dL High 74 - 99 mg/dL [facility] Comment on above: The [place] Diabete s Association (ADA) provides guidance for [...] Standards of Medical Care in Diabetes 2016, [place] Diabetes Association. Diabetes Care. 2016.39(Suppl 1). Interpretation and review of laboratory results Abnormal [facility] Potassium [Moles/Vol] 4.5 mmol/L 3.7 - 5.1 mmol/L [facility] Protein [Mass/Vol] 6.9 g/dL 6.3 - 8.0 g/dL [facility] Sodium [Moles/Vol] 132 mmol/L Low 136 - 144 mmol/L [facility] Urea nitrogen [Mass/Vol] 11 mg/dL 7 - 21 mg/dL [facility] Comprehensive metabolic 2000 panelon 01-25-2025 Albumin [Mass/Vol] 3.8 g/dL Low 3.9-4.9 [facility] Comment on above: Order Comment: Speci men Type: BLOOD SPECIMENOrdering Facility: [facility] Address: [address] [place] [address] Performed By: #### 2 4323-8, 10521-4 ####[facility] [id number] [place] [address] [place] ALP [Catalytic activity/Vol] 170 U/L High 34-123 [facility] Comment on above: Order Comment: Speci men Type: BLOOD SPECIMENOrdering Facility: [facility] Address: [address] [place] [address] Performed By: #### 2 4323-8, 43177-3 ####[facility] [id number] [place] [address] [place] ALT [Catalytic activity/Vol] 37 U/L Normal 7-38 [facility] Comment on above: Order Comment: Speci men Type: BLOOD SPECIMENOrdering Facility: [facility] Address: [address] [place] [address] Performed By: #### 2 4323-8, 13012-2 ####[facility] REJI MILLTOWNCLIA [id number] [place] [address] [place] Anion gap [Moles/Vol] 10 mmol/L Normal 8-15 [facility] Comment on above: Order Comment: Speci men Type: BLOOD SPECIMENOrdering Facility: [facility] Address: [address] [place] [address] Performed By: #### 2 4323-8, 94578-4 ####[facility] MILLTOWSANDRALIA [id number] [place] [address] [place] AST [Catalytic activity/Vol] 28 U/L Normal 13-35 [facility] Comment on above: Order Comment: Speci men Type: BLOOD SPECIMENOrdering Facility: [facility] Address: [facility] [place] [address] Performed By: #### 2 4323-8, 85589-6 ####[facility] MILLAYANWSANDRALIA [id number] [place] [address] [place] Bilirubin [Mass/Vol] 2.6 mg/dL High 0.2-1.3 [facility] Comment on above: Order Comment: Speci men Type: BLOOD SPECIMENOrdering Facility: [facility] Address: [facility] [place] [id number] Performed By: #### 2 4323-8, 58450-5 ####[facility] MILLTOWNCLIA [id number] [place] [address] [place] Calcium [Mass/Vol] 9.4 mg/dL Normal 8.5-10.2 [facility] Comment on above: Order Comment: Speci men Type: BLOOD SPECIMENOrdering Facility: [facility] Address: [facility] [place] [address] Performed By: #### 2 4323-8, 15636-6 ####[facility] FOR CHILDRENNCLIA [id number] [place] [address] [place] Chloride [Moles/Vol] 101 mmol/L Normal 98-107 [facility] Comment on above: Order Comment: Speci men Type: BLOOD SPECIMENOrdering Facility: [facility] Address: [address] [place] [address] Performed By: #### 2 4323-8, 41846-4 ####[facility] [id number] [place] [address] [place] CO2 [Moles/Vol] 21 mmol/L Low 22-30 [facility] Comment on above: Order Comment: Speci men Type: BLOOD SPECIMENOrdering Facility: [facility] Address: [address] [place] [address] Performed By: #### 2 4323-8, 10991-1 ####[facility] HOSPITALA [id number] [place] [address] [place] Creatinine [Mass/Vol] 0.58 mg/dL Normal 0.58-0.96 [facility] Comment on above: Order Comment: Speci men Type: BLOOD SPECIMENOrdering Facility: [facility] Address: [address] [place] [address] Performed By: #### 2 4323-8, 43004-0 ####[facility] [id number] [place] [address] [place] Creatinine and Glomerular filtration rate.predicted panel (S/P/Bld) 89 mL/min/1.73m??? Normal >=60 [facility] Comment on above: Order Comment: Speci men Type: BLOOD SPECIMENOrdering Facility: [facility] Address: [address] [place] [address] Result Comment: Kya mated Glomerular Filtration Rate [...] actual GFR. Performed By: #### 2 4323-8, 71312-0 ####[facility] REJI KHLOEUNALIKush [id number] [place] [address] [place] Glucose [Mass/Vol] 325 mg/dL High 74-99 [facility] Comment on above: Order Comment: Dayron stinson Type: BLOOD SPECIMENOrdering Facility: [facility] Address: [address] [place] [address] Result Comment: The [place] Diabetes Association (ADA) provides guidance for cutoff [...] Standards of Medical Care in Diabetes 2016, [place] Diabetes Association. Diabetes Care. 2016.39(Suppl 1). Performed By: #### 2 4323-8, 91389-4 ####[facility] POINTElissaNCLIA [id number] [place] [address] [place] Potassium [Moles/Vol] 4.5 mmol/L Normal 3.7-5.1 [facility] Comment on above: Order Comment: Dayron stinson Type: BLOOD SPECIMENOrdering Facility: [facility] Address: [address] [place] [address] Performed By: #### 2 4323-8, 49743-0 ####[facility] FOR CHILDRENNCLIA [id number] [place] [address] [place] Protein [Mass/Vol] 6.9 g/dL Normal 6.3-8.0 [facility] Comment on above: Order Comment: Speci men Type: BLOOD SPECIMENOrdering Facility: [facility] Address: [address] [place] [address] Performed By: #### 2 4323-8, 66482-5 ####[facility] [id number] [place] [address] [place] Sodium [Moles/Vol] 132 mmol/L Low 136-144 [facility] Comment on above: Order Comment: Speci men Type: BLOOD SPECIMENOrdering Facility: [facility] Address: [address] [place] [address] Performed By: #### 2 4323-8, 63271-8 ####[facility]ENNC[facility] [id number] [place] [address] [place] Urea nitrogen [Mass/Vol] 11 mg/dL Normal 7-21 [facility] Comment on above: Order Comment: Speci men Type: BLOOD SPECIMENOrdering Facility: [facility] Address: [address] [place] [address] Performed By: #### 2 4323-8, 85538-5 ####[facility] HOSPITALLIA [id number] [place] [address] [place] CNPNon 01-24-2025 CNPN Normal [facility] CBC W Auto Differential pane l (Bld)on 01-23-2025 Basophils (Bld) [#/Vol] 10*3/uL Normal <0.11 [facility] Comment on above: Order Comment: Speci men Type: BLOOD SPECIMENOrdering Facility: [facility] Address: [address] [place] [address] Performed By: #### 5 7021-8 ####[facility] LABORATORYCLIA [id number] [place] [address] [place] Basophils/100 WBC (Bld) 0.2 % Normal [facility] Comment on above: Order Comment: Speci men Type: BLOOD SPECIMENOrdering Facility: [facility] Address: [address] [place] [address] Performed By: #### 5 7021-8 ####[facility] LABORATORYCLIA [id number] [address] Differential cell count method Nom (Bld) Auto Normal [facility] Comment on above: Order Comment: Speci men Type: BLOOD SPECIMENOrdering Facility: [facility] Address: [address] [place] [address] Performed By: #### 5 7021-8 ####[facility] LABORATORYCLIA [id number] [address] Eosinophils (Bld) [#/Vol] 0.12 10*3/uL Normal <0.46 [facility] Comment on above: Order Comment: Speci men Type: BLOOD SPECIMENOrdering Facility: [facility] Address: [address] [place] [address] Performed By: #### 5 7021-8 ####[facility] LABORATORYCLIA [id number] [address] Eosinophils/100 WBC (Bld) 1.1 % Normal [facility] Comment on above: Order Comment: Speci men Type: BLOOD SPECIMENOrdering Facility: [facility] Address: [address] [place] [address] Performed By: #### 5 7021-8 ####[facility] LABORATORYCLIA [id number] [address] Erythrocyte distribution width (RBC) [Ratio] 15.7 % High 11.5-15.0 [facility] Comment on above: Order Comment: Speci men Type: BLOOD SPECIMENOrdering Facility: [facility] Address: [address] [place] [address] Performed By: #### 5 7021-8 ####[facility] LABORATORYCLIA [id number] [address] [place] Hematocrit (Bld) [Volume fraction] 28.7 % Low 36.0-46.0 [facility] Comment on above: Order Comment: Speci men Type: BLOOD SPECIMENOrdering Facility: [facility] Address: [address] [place] [address] Performed By: #### 5 7021-8 ####[facility] LABORATORYCLIA [id number] [address] [place] Hemoglobin (Bld) [Mass/Vol] 9.2 g/dL Low 11.5-15.5 [facility] Comment on above: Order Comment: Speci men Type: BLOOD SPECIMENOrdering Facility: [facility] Address: [address] [place] [address] Performed By: #### 5 7021-8 ####[facility] LABORATORYCLIA [id number] [place] [address] [place] Immature granulocytes (Bld) [#/Vol] 0.06 10*3/uL Normal <0.10 [facility] Comment on above: Order Comment: Speci men Type: BLOOD SPECIMENOrdering Facility: [facility] Address: [address] [place] [address] Performed By: #### 5 7021-8 ####[facility] LABORATORYCLIA [id number] [address] [place] Immature granulocytes/100 WBC (Bld) 0.6 % Normal [facility] Comment on above: Order Comment: Speci men Type: BLOOD SPECIMENOrdering Facility: [facility] Address: [address] [place] [address] Performed By: #### 5 7021-8 ####[facility] LABORATORYCLIA [id number] [place] [address] [place] Lymphocytes (Bld) [#/Vol] 0.97 10*3/uL Low 1.00-4.00 [facility] Comment on above: Order Comment: Speci men Type: BLOOD SPECIMENOrdering Facility: [facility] Address: [address] [place] [address] Performed By: #### 5 7021-8 ####[facility] LABORATORYCLIA [id number] [address] Lymphocytes/100 WBC (Bld) 9.0 % Normal [facility] Comment on above: Order Comment: Speci men Type: BLOOD SPECIMENOrdering Facility: [facility] Address: [address] [place] [address] Performed By: #### 5 7021-8 ####[facility] LABORATORYCLIA [id number] [address] MCH (RBC) [Entitic mass] 30.9 pg Normal 26.0-34.0 [facility] Comment on above: Order Comment: Speci men Type: BLOOD SPECIMENOrdering Facility: [facility] Address: [address] [place] [address] Performed By: #### 5 7021-8 ####[facility] LABORATORYCLIA [id number] [address] MCHC (RBC) [Mass/Vol] 32.1 g/dL Normal 30.5-36.0 [facility] Comment on above: Order Comment: Speci men Type: BLOOD SPECIMENOrdering Facility: [facility] Address: [address] [place] [address] Performed By: #### 5 7021-8 ####[facility] LABORATORYCLIA [id number] [address] STATES OF [facility] MCV (RBC) [Entitic vol] 96.3 fL Normal 80.0-100.0 [facility] Comment on above: Order Comment: Speci men Type: BLOOD SPECIMENOrdering Facility: [facility] Address: [address] [place] [address] Performed By: #### 5 7021-8 ####[facility] LABORATORYCLIA [id number] [address] Monocytes (Bld) [#/Vol] 1.23 10*3/uL High <0.87 [facility] Comment on above: Order Comment: Speci men Type: BLOOD SPECIMENOrdering Facility: [facility] Address: [address] [place] [address] Performed By: #### 5 7021-8 ####[facility] LABORATORYCLIA [id number] [place] [id number] [place] Monocytes/100 WBC (Bld) 11.5 % Normal [facility] Comment on above: Order Comment: Speci men Type: BLOOD SPECIMENOrdering Facility: [facility] Address: [address] [place] [address] Performed By: #### 5 7021-8 ####[facility] LABORATORYCLIA [id number] [place] [address] [place] Neutrophils (Bld) [#/Vol] 8.33 10*3/uL High 1.45-7.50 [facility] Comment on above: Order Comment: Speci men Type: BLOOD SPECIMENOrdering Facility: [facility] Address: [address] [place] [address] Performed By: #### 5 7021-8 ####[facility] LABORATORYCLIA [id number] [address] [place] Neutrophils/100 WBC (Bld) 77.6 % Normal [facility] Comment on above: Order Comment: Speci men Type: BLOOD SPECIMENOrdering Facility: [facility] Address: [address] [place] [address] Performed By: #### 5 7021-8 ####[facility]ORATORYCLIA [id number] [place] [address] [place] Nucleated RBC (Bld) [#/Vol] 10*3/uL Normal <0.01 [facility] Comment on above: Order Comment: Speci men Type: BLOOD SPECIMENOrdering Facility: [facility] Address: [address] [place] [address] Performed By: #### 5 7021-8 ####[facility]ORATORYCLIA [id number] [place] [address] [place] Nucleated RBC/100 WBC (Bld) [Ratio] 0.0 /[address] [facility] Comment on above: Order Comment: Speci men Type: BLOOD SPECIMENOrdering Facility: [facility] Address: [address] [place] [address] Performed By: #### 5 7021-8 ####[facility] LABORATORYCLIA [id number] [address] [place] Platelet mean volume (Bld) [Entitic vol] 12.9 fL High 9.0-12.7 [facility] Comment on above: Order Comment: Speci men Type: BLOOD SPECIMENOrdering Facility: [facility] Address: [address] [place] [address] Performed By: #### 5 7021-8 ####[facility] LABORATORYCLIA [id number] [address] [place] Platelets (Bld) [#/Vol] 237 10*3/uL Normal 150-400 [facility] Comment on above: Order Comment: Speci men Type: BLOOD SPECIMENOrdering Facility: [facility] Address: [address] [place] [address] Performed By: #### 5 7021-8 ####[facility] LABORATORYCLIA [id number] [place] [address] [place] RBC (Bld) [#/Vol] 2.98 10*6/uL Low 3.90-5.20 [facility] Comment on above: Order Comment: Speci men Type: BLOOD SPECIMENOrdering Facility: [facility] Address: [address] [place] [address] Performed By: #### 5 7021-8 ####[facility] LABORATORYCLIA [id number] [address] [place] WBC (Bld) [#/Vol] 10.73 10*3/uL Normal 3.70-11.00 [facility] Comment on above: Order Comment: Speci men Type: BLOOD SPECIMENOrdering Facility: [facility] Address: [address] [place] [address] Performed By: #### 5 7021-8 ####[facility] LABORATORYCLIA [id number] [place] [address] [place] CNDSon 01-23-[address] [facility] Hepatic function 2000 panelo n 01-23-2025 Albumin [Mass/Vol] 3.4 g/dL Low 3.9-4.9 [facility] Comment on above: Order Comment: Speci men Type: BLOOD SPECIMENOrdering Facility: [facility] Address: [address] [place] [address] Performed By: #### 2 4325-3 ####[facility] LABORATORYCLIA [id number] [place] [address] [place] ALP [Catalytic activity/Vol] 155 U/L High 34-123 [facility] Comment on above: Order Comment: Speci men Type: BLOOD SPECIMENOrdering Facility: [facility] Address: [address] [place] [address] Performed By: #### 2 4325-3 ####[facility] LABORATORYCLIA [id number] [place] [address] [place] ALT With P-5'-P [Catalytic activity/Vol] 46 U/L High 7-38 [facility] Comment on above: Order Comment: Speci men Type: BLOOD SPECIMENOrdering Facility: [facility] Address: [address] [place] [address] Performed By: #### 2 4325-3 ####[facility] LABORATORYCLIA [id number] [address] [place] AST With P-5'-P [Catalytic activity/Vol] 39 U/L High 13-35 [facility] Comment on above: Order Comment: Speci men Type: BLOOD SPECIMENOrdering Facility: [facility] Address: [address] [place] [address] Performed By: #### 2 4325-3 ####[facility] LABORATORYCLIA [id number] [place] [address] [place] Bilirubin [Mass/Vol] 2.5 mg/dL High 0.2-1.3 [facility] Comment on above: Order Comment: Speci men Type: BLOOD SPECIMENOrdering Facility: [facility] Address: [address] [place] [address] Performed By: #### 2 4325-3 ####[facility] LABORATORYCLIA [id number] [address] STATES OF [facility] Bilirubin.conjugated [Mass/Vol] 1.9 mg/dL High <0.3 [facility] Comment on above: Order Comment: Speci men Type: BLOOD SPECIMENOrdering Facility: [facility] Address: [address] [place] [address] Performed By: #### 2 4325-3 ####[facility] LABORATORYCLIA [id number] [address] [place] Protein [Mass/Vol] 5.8 g/dL Low 6.3-8.0 [facility] Comment on above: Order Comment: Speci men Type: BLOOD SPECIMENOrdering Facility: [facility] Address: [address] [place] [address] Performed By: #### 2 4325-3 ####[facility] LABORATORYCLIA [id number] [address] [place] ANES PRE-OPon 01-22-2025 ANES PRE-OP Normal [facility] CASE MANAGEMon 01-22-[address] [facility] CBC panel Auto (Bld)on 01-22 Erythrocyte distribution width (RBC) [Ratio] 15.9 % High 11.5-15.0 [facility] Comment on above: Order Comment: Speci men Type: BLOOD SPECIMENOrdering Facility: [facility] Address: [address] [place] [address] Performed By: #### 5 8410-2 ####[facility] LABORATORYCLIA [id number] [address] [place] Hematocrit (Bld) [Volume fraction] 28.8 % Low 36.0-46.0 [facility] Comment on above: Order Comment: Speci men Type: BLOOD SPECIMENOrdering Facility: [facility] Address: [address] [place] [address] Performed By: #### 5 8410-2 ####[facility] LABORATORYCLIA [id number] [address] Hemoglobin (Bld) [Mass/Vol] 9.3 g/dL Low 11.5-15.5 [facility] Comment on above: Order Comment: Speci men Type: BLOOD SPECIMENOrdering Facility: [facility] Address: [address] [place] [address] Performed By: #### 5 8410-2 ####[facility] LABORATORYCLIA [id number] [address] MCH (RBC) [Entitic mass] 31.1 pg Normal 26.0-34.0 [facility] Comment on above: Order Comment: Speci men Type: BLOOD SPECIMENOrdering Facility: [facility] Address: [address] [place] [address] Performed By: #### 5 8410-2 ####[facility] LABORATORYCLIA [id number] [address] MCHC (RBC) [Mass/Vol] 32.3 g/dL Normal 30.5-36.0 [facility] Comment on above: Order Comment: Speci men Type: BLOOD SPECIMENOrdering Facility: [facility] Address: [address] [place] [address] Performed By: #### 5 8410-2 ####[facility] LABORATORYCLIA [id number] [address] STATES [facility] MCV (RBC) [Entitic vol] 96.3 fL Normal 80.0-100.0 [facility] Comment on above: Order Comment: Speci men Type: BLOOD SPECIMENOrdering Facility: [facility] Address: [address] [place] [address] Performed By: #### 5 8410-2 ####[facility] LABORATORYCLIA [id number] [address] OF [facility] Nucleated RBC (Bld) [#/Vol] 10*3/uL Normal <0.01 [facility] Comment on above: Order Comment: Speci men Type: BLOOD SPECIMENOrdering Facility: [facility] Address: [address] [place] [address] Performed By: #### 5 8410-2 ####[facility] LABORATORYCLIA [id number] [place] [address] [place] Platelet mean volume (Bld) [Entitic vol] 13.0 fL High 9.0-12.7 [facility] Comment on above: Order Comment: Speci men Type: BLOOD SPECIMENOrdering Facility: [facility] Address: [address] [place] [address] Performed By: #### 5 8410-2 ####[facility] LABORATORYCLIA [id number] [place] [address] [place] Platelets (Bld) [#/Vol] 254 10*3/uL Normal 150-400 [facility] Comment on above: Order Comment: Speci men Type: BLOOD SPECIMENOrdering Facility: [facility] Address: [address] [place] [address] Performed By: #### 5 8410-2 ####[facility]ORATORYCLIA [id number] [place] [address] [place] RBC (Bld) [#/Vol] 2.99 10*6/uL Low 3.90-5.20 [facility] Comment on above: Order Comment: Speci men Type: BLOOD SPECIMENOrdering Facility: [facility] Address: [facility] [place] [address] Performed By: #### 5 8410-2 ####[facility] LABORATORYCLIA [id number] [place] [address] [place] WBC (Bld) [#/Vol] 6.28 10*3/uL Normal 3.70-11.00 [facility] Comment on above: Order Comment: Speci men Type: BLOOD SPECIMENOrdering Facility: [facility] Address: [address] [place] [address] Performed By: #### 5 8410-2 ####[facility] LABORATORYCLIA [id number] [address] [place] CONSULT PROGon 01-22-[address] [facility] Comprehensive metabolic 2000 panelon 01-22-2025 Albumin [Mass/Vol] 3.4 g/dL Low 3.9-4.9 [facility] Comment on above: Order Comment: Speci men Type: BLOOD SPECIMENOrdering Facility: [facility] Address: [address] [place] [address] Performed By: #### 2 4323-8 ####[facility] LABORATORYCLIA [id number] [place] [address] [place] ALP [Catalytic activity/Vol] 161 U/L High 34-123 [facility] Comment on above: Order Comment: Speci men Type: BLOOD SPECIMENOrdering Facility: [facility] Address: [address] [place] [address] Performed By: #### 2 4323-8 ####[facility] LABORATORYCLIA [id number] [address] STATES OF [facility] ALT With P-5'-P [Catalytic activity/Vol] 48 U/L High 7-38 [facility] Comment on above: Order Comment: Speci men Type: BLOOD SPECIMENOrdering Facility: [facility] Address: [address] [place] [address] Performed By: #### 2 4323-8 ####[facility] LABORATORYCLIA [id number] [address] [place] Anion gap [Moles/Vol] 10 mmol/L Normal 8-15 [facility] Comment on above: Order Comment: Speci men Type: BLOOD SPECIMENOrdering Facility: [facility] Address: [address] [place] [address] Performed By: #### 2 4323-8 ####[facility] LABORATORYCLIA [id number] [address] [place] AST With P-5'-P [Catalytic activity/Vol] 39 U/L High 13-35 [facility] Comment on above: Order Comment: Speci men Type: BLOOD SPECIMENOrdering Facility: [facility] Address: [address] [place] [address] Performed By: #### 2 4323-8 ####[facility]ORATORYCLIA [id number] [place] [address] [place] Bilirubin [Mass/Vol] 2.5 mg/dL High 0.2-1.3 [facility] Comment on above: Order Comment: Speci men Type: BLOOD SPECIMENOrdering Facility: [facility] Address: [address] [place] [address] Performed By: #### 2 4323-8 ####[facility]ORATORYCLIA [id number] [place] [address] [place] Calcium [Mass/Vol] 9.1 mg/dL Normal 8.5-10.2 [facility] Comment on above: Order Comment: Speci men Type: BLOOD SPECIMENOrdering Facility: [facility] Address: [address] [place] [address] Performed By: #### 2 4323-8 ####[facility]ATORYCLIA [id number] [place] [address] [place] Chloride [Moles/Vol] 104 mmol/L Normal 98-107 [facility] Comment on above: Order Comment: Speci men Type: BLOOD SPECIMENOrdering Facility: [facility] Address: [address] [place] [address] Performed By: #### 2 4323-8 ####[facility]ORATORYCLIA [id number] [place] [address] [place] CO2 [Moles/Vol] 23 mmol/L Normal 22-30 [facility] Comment on above: Order Comment: Speci men Type: BLOOD SPECIMENOrdering Facility: [facility] Address: [address] [place] [address] Performed By: #### 2 4323-8 ####[facility]ORATORYCLIA [id number] [place] [address] [place] Creatinine [Mass/Vol] 0.69 mg/dL Normal 0.58-0.96 [facility] Comment on above: Order Comment: Elinorbertrand stinson Type: BLOOD SPECIMENOrdering Facility: [facility] Address: [address] [place] [address] Performed By: #### 2 4323-8 ####[facility] LABORATORYCLIA [id number] [place] [address] [place] Creatinine and Glomerular filtration rate.predicted panel (S/P/Bld) 86 mL/min/1.73m??? Normal >=60 [facility] Comment on above: Order Comment: Dayron shantell Type: BLOOD SPECIMENOrdering Facility: [facility] Address: [address] [place] [address] Result Comment: [place]ya mated Glomerular Filtration Rate [...] actual GFR. Performed By: #### 2 4323-8 ####[facility] LABORATORYIA [id number] [place] [address] [place] Glucose [Mass/Vol] 171 mg/dL High 74-99 [facility] Comment on above: Order Comment: Elinorbertrand stinson Type: BLOOD SPECIMENOrdering Facility: [facility] Address: [address] [place] [address] Result Comment: The [place] [employer] (ADA) provides guidance for cutoff [...] Standards of Medical Care in Diabetes 2016, [place] [employer]. Diabetes Care. 2016.39(Suppl 1). Performed By: #### 2 4323-8 ####[facility]ORATORYCLIA [id number] [address] [place] Potassium [Moles/Vol] 4.3 mmol/L Normal 3.7-5.1 [facility] Comment on above: Order Comment: Speci men Type: BLOOD SPECIMENOrdering Facility: [facility] Address: [address] [place] [address] Performed By: #### 2 4323-8 ####[facility]ATORYCLIA [id number] [place] [address] [place] Protein [Mass/Vol] 5.7 g/dL Low 6.3-8.0 [facility] Comment on above: Order Comment: Speci men Type: BLOOD SPECIMENOrdering Facility: [facility] Address: [address] [place] [address] Performed By: #### 2 4323-8 ####[facility] LABORATORYCLIA [id number] [address] STATES OF [facility] Sodium [Moles/Vol] 137 mmol/L Normal 136-144 [facility] Comment on above: Order Comment: Speci men Type: BLOOD SPECIMENOrdering Facility: [facility] Address: [address] [place] [address] Performed By: #### 2 4323-8 ####[facility] LABORATORYCLIA [id number] [address] [place] Urea nitrogen [Mass/Vol] 11 mg/dL Normal 7-21 [facility] Comment on above: Order Comment: Speci men Type: BLOOD SPECIMENOrdering Facility: [facility] Address: [address] [place] [address] Performed By: #### 2 4323-8 ####[facility] LABORATORYCLIA [id number] [address] [place] NURSING PROGon 01-22-[address] [facility] NUTRITIONon 01-22-[address] [facility] Upper GI endoscopyon 025 Upper GI endoscopy Normal [facility] CBC panel Auto (Bld)on 01-21 Erythrocyte distribution width (RBC) [Ratio] 15.7 % High 11.5-15.0 [facility] Comment on above: Order Comment: Speci men Type: BLOOD SPECIMENOrdering Facility: [facility] Address: [address] [place] [address] Performed By: #### 5 8410-2 ####[facility] LABORATORYCLIA [id number] [address] OF [facility] Hematocrit (Bld) [Volume fraction] 27.9 % Low 36.0-46.0 [facility] Comment on above: Order Comment: Speci men Type: BLOOD SPECIMENOrdering Facility: [facility] Address: [address] [place] [address] Performed By: #### 5 8410-2 ####[facility] LABORATORYCLIA [id number] [address] OF [facility] Hemoglobin (Bld) [Mass/Vol] 9.2 g/dL Low 11.5-15.5 [facility] Comment on above: Order Comment: Speci men Type: BLOOD SPECIMENOrdering Facility: [facility] Address: [address] [place] [address] Performed By: #### 5 8410-2 ####[facility] LABORATORYCLIA [id number] [address] STATES OF [facility] MCH (RBC) [Entitic mass] 31.5 pg Normal 26.0-34.0 [facility] Comment on above: Order Comment: Speci men Type: BLOOD SPECIMENOrdering Facility: [facility] Address: [address] [place] [address] Performed By: #### 5 8410-2 ####[facility] LABORATORYCLIA [id number] [address] [place] MCHC (RBC) [Mass/Vol] 33.0 g/dL Normal 30.5-36.0 [facility] Comment on above: Order Comment: Speci men Type: BLOOD SPECIMENOrdering Facility: [facility] Address: [address] [place] [address] Performed By: #### 5 8410-2 ####[facility] LABORATORYCLIA [id number] [address] [place] MCV (RBC) [Entitic vol] 95.5 fL Normal 80.0-100.0 [facility] Comment on above: Order Comment: Speci men Type: BLOOD SPECIMENOrdering Facility: [facility] Address: [address] [place] [address] Performed By: #### 5 8410-2 ####[facility] LABORATORYCLIA [id number] [address] [place] Nucleated RBC (Bld) [#/Vol] 10*3/uL Normal <0.01 [facility] Comment on above: Order Comment: Speci men Type: BLOOD SPECIMENOrdering Facility: [facility] Address: [address] [place] [address] Performed By: #### 5 8410-2 ####[facility] LABORATORYCLIA [id number] [address] [place] Platelet mean volume (Bld) [Entitic vol] 13.1 fL High 9.0-12.7 [facility] Comment on above: Order Comment: Speci men Type: BLOOD SPECIMENOrdering Facility: [facility] Address: [address] [place] [address] Performed By: #### 5 8410-2 ####[facility] LABORATORYCLIA [id number] [address] [place] Platelets (Bld) [#/Vol] 226 10*3/uL Normal 150-400 [facility] Comment on above: Order Comment: Speci men Type: BLOOD SPECIMENOrdering Facility: [facility] Address: [address] [place] [address] Performed By: #### 5 8410-2 ####[facility] LABORATORYCLIA [id number] [address] [place] RBC (Bld) [#/Vol] 2.92 10*6/uL Low 3.90-5.20 [facility] Comment on above: Order Comment: Speci men Type: BLOOD SPECIMENOrdering Facility: [facility] Address: [address] [place] [address] Performed By: #### 5 8410-2 ####[facility] LABORATORYCLIA [id number] [address] [place] WBC (Bld) [#/Vol] 7.00 10*3/uL Normal 3.70-11.00 [facility] Comment on above: Order Comment: Speci men Type: BLOOD SPECIMENOrdering Facility: [facility] Address: [address] [place] [address] Performed By: #### 5 8410-2 ####[facility] LABORATORYCLIA [id number] [address] [place] CNPNon 01-21-[address] [facility] CONSULTon 01-21-[address] [facility] CONSULT PROGon 01-21-[address] [facility] Comprehensive metabolic 2000 panelon 01-21-2025 Albumin [Mass/Vol] 3.2 g/dL Low 3.9-4.9 [facility] Comment on above: Order Comment: Speci men Type: BLOOD SPECIMENOrdering Facility: [facility] Address: [address] [place] [address] Performed By: #### 2 4323-8 ####[facility] LABORATORYCLIA [id number] [address] [place] ALP [Catalytic activity/Vol] 171 U/L High 34-123 [facility] Comment on above: Order Comment: Speci men Type: BLOOD SPECIMENOrdering Facility: [facility] Address: [address] [place] [address] Performed By: #### 2 4323-8 ####[facility] LABORATORYCLIA [id number] [address] [place] ALT With P-5'-P [Catalytic activity/Vol] 50 U/L High 7-38 [facility] Comment on above: Order Comment: Speci men Type: BLOOD SPECIMENOrdering Facility: [facility] Address: [address] [place] [address] Performed By: #### 2 4323-8 ####[facility] LABORATORYCLIA [id number] [place] [address] [place] Anion gap [Moles/Vol] 11 mmol/L Normal 8-15 [facility] Comment on above: Order Comment: Speci men Type: BLOOD SPECIMENOrdering Facility: [facility] Address: [address] [place] [address] Performed By: #### 2 4323-8 ####[facility] LABORATORYCLIA [id number] [place] [address] [place] AST With P-5'-P [Catalytic activity/Vol] 37 U/L High 13-35 [facility] Comment on above: Order Comment: Speci men Type: BLOOD SPECIMENOrdering Facility: [facility] Address: [address] [place] [address] Performed By: #### 2 4323-8 ####[facility] LABORATORYCLIA [id number] [place] [address] [place] Bilirubin [Mass/Vol] 2.7 mg/dL High 0.2-1.3 [facility] Comment on above: Order Comment: Speci men Type: BLOOD SPECIMENOrdering Facility: [facility] Address: [address] [place] [address] Performed By: #### 2 4323-8 ####[facility] LABORATORYCLIA [id number] [place] [address] [place] Calcium [Mass/Vol] 8.8 mg/dL Normal 8.5-10.2 [facility] Comment on above: Order Comment: Speci men Type: BLOOD SPECIMENOrdering Facility: [facility] Address: [address] [place] [address] Performed By: #### 2 4323-8 ####[facility] LABORATORYCLIA [id number] [place] [address] [place] Chloride [Moles/Vol] 104 mmol/L Normal 98-107 [facility] Comment on above: Order Comment: Speci men Type: BLOOD SPECIMENOrdering Facility: [facility] Address: [address] [place] [address] Performed By: #### 2 4323-8 ####[facility] LABORATORYCLIA [id number] [address] CO2 [Moles/Vol] 24 mmol/L Normal 22-30 [facility] Comment on above: Order Comment: Speci men Type: BLOOD SPECIMENOrdering Facility: [facility] Address: [address] [place] [address] Performed By: #### 2 4323-8 ####[facility]PITALCLIA [id number] [address] Creatinine [Mass/Vol] 0.64 mg/dL Normal 0.58-0.96 [facility] Comment on above: Order Comment: Speci men Type: BLOOD SPECIMENOrdering Facility: [facility] Address: [address] [place] [address] Performed By: #### 2 4323-8 ####[facility] LABORATORYCLIA [id number] [address] Creatinine and Glomerular filtration rate.predicted panel (S/P/Bld) 87 mL/min/1.73m??? Normal >=60 [facility] Comment on above: Order Comment: Speci men Type: BLOOD SPECIMENOrdering Facility: [facility] Address: [address] [place] [address] Result Comment: Kya mated Glomerular Filtration Rate [...] actual GFR. Performed By: #### 2 4323-8 ####[facility] LABORATORYCLIA [id number] [place] [address] [place] Glucose [Mass/Vol] 182 mg/dL High 74-99 [facility] Comment on above: Order Comment: Speci men Type: BLOOD SPECIMENOrdering Facility: [facility] Address: [address] [place] [address] Result Comment: The [place] Diabetes Association (ADA) provides guidance for cutoff [...] Standards of Medical Care in Diabetes 2016, [place] [employer]. Diabetes Care. 2016.39(Suppl 1). Performed By: #### 2 4323-8 ####[facility] LABORATORYCLIA [id number] [place] [address] [place] Potassium [Moles/Vol] 4.1 mmol/L Normal 3.7-5.1 [facility] Comment on above: Order Comment: Dayron men Type: BLOOD SPECIMENOrdering Facility: [facility] Address: [address] [place] [address] Performed By: #### 2 4323-8 ####[facility] LABORATORYCLIA [id number] [place] [address] [place] Protein [Mass/Vol] 5.6 g/dL Low 6.3-8.0 [facility] Comment on above: Order Comment: Speci men Type: BLOOD SPECIMENOrdering Facility: [facility] Address: [address] [place] [address] Performed By: #### 2 4323-8 ####[facility] LABORATORYCLIA [id number] [place] [address] [place] Sodium [Moles/Vol] 139 mmol/L Normal 136-144 [facility] Comment on above: Order Comment: Speci men Type: BLOOD SPECIMENOrdering Facility: [facility] Address: [address] [place] [address] Performed By: #### 2 4323-8 ####[facility] LABORATORYCLIA [id number] [address] STATES [facility] Urea nitrogen [Mass/Vol] 14 mg/dL Normal 7- [facility] Comment on above: Order Comment: Speci men Type: BLOOD SPECIMENOrdering Facility: [facility] Address: [address] [place] [address] Performed By: #### 2 4323-8 ####[facility] LABORATORYCLIA [id number] [address] Hematocrit Auto (Bld) [Volum e fraction]on 01-21-2025 Hematocrit (Bld) [Volume fraction] 30.7 % Low 36.0-46.0 [facility] Comment on above: Order Comment: Speci men Type: BLOOD SPECIMENOrdering Facility: [facility] Address: [address] [place] [address] Performed By: #### 4 544-3, 718-7 ####[facility] LABORATORYCLIA [id number] [address] [place] Hgb Bld-mCncon 01-21-2025 Hemoglobin (Bld) [Mass/Vol] 9.9 g/dL Low 11.5-15.5 [facility] Comment on above: Order Comment: Speci men Type: BLOOD SPECIMENOrdering Facility: [facility] Address: [address] [place] [address] Performed By: #### 4 544-3, 718-7 ####[facility] LABORATORYCLIA [id number] [address] [place] CASE MANAGEMon 01-20-[address] [facility] CBC panel Auto (Bld)on 01-20 Erythrocyte distribution width (RBC) [Ratio] 15.9 % High 11.5-15.0 [facility] Comment on above: Order Comment: Speci men Type: BLOOD SPECIMENOrdering Facility: [facility] Address: [address] [place] [address] Performed By: #### 5 8410-2 ####[facility] LABORATORYCLIA [id number] [address] Hematocrit (Bld) [Volume fraction] 30.5 % Low 36.0-46.0 [facility] Comment on above: Order Comment: Speci men Type: BLOOD SPECIMENOrdering Facility: [facility] Address: [address] [place] [address] Performed By: #### 5 8410-2 ####[facility] LABORATORYCLIA [id number] [address] OF [facility] Hemoglobin (Bld) [Mass/Vol] 9.9 g/dL Low 11.5-15.5 [facility] Comment on above: Order Comment: Speci men Type: BLOOD SPECIMENOrdering Facility: [facility] Address: [address] [place] [address] Performed By: #### 5 8410-2 ####[facility] LABORATORYCLIA [id number] [address] STATES OF [facility] MCH (RBC) [Entitic mass] 30.8 pg Normal 26.0-34.0 [facility] Comment on above: Order Comment: Speci men Type: BLOOD SPECIMENOrdering Facility: [facility] Address: [address] [place] [address] Performed By: #### 5 8410-2 ####[facility] LABORATORYCLIA [id number] [address] [place] MCHC (RBC) [Mass/Vol] 32.5 g/dL Normal 30.5-36.0 [facility] Comment on above: Order Comment: Speci men Type: BLOOD SPECIMENOrdering Facility: [facility] Address: [address] [place] [address] Performed By: #### 5 8410-2 ####[facility] LABORATORYCLIA [id number] [address] MCV (RBC) [Entitic vol] 95.0 fL Normal 80.0-100.0 [facility] Comment on above: Order Comment: Speci men Type: BLOOD SPECIMENOrdering Facility: [facility] Address: [address] [place] [address] Performed By: #### 5 8410-2 ####[facility] LABORATORYCLIA [id number] [address] [place] Nucleated RBC (Bld) [#/Vol] 10*3/uL Normal <0.01 [facility] Comment on above: Order Comment: Speci men Type: BLOOD SPECIMENOrdering Facility: [facility] Address: [address] [place] [address] Performed By: #### 5 8410-2 ####[facility] LABORATORYCLIA [id number] [address] [place] Platelet mean volume (Bld) [Entitic vol] 13.1 fL High 9.0-12.7 [facility] Comment on above: Order Comment: Speci men Type: BLOOD SPECIMENOrdering Facility: [facility] Address: [address] [place] [address] Performed By: #### 5 8410-2 ####[facility] LABORATORYCLIA [id number] [address] [place] Platelets (Bld) [#/Vol] 233 10*3/uL Normal 150-400 [facility] Comment on above: Order Comment: Speci men Type: BLOOD SPECIMENOrdering Facility: [facility] Address: [address] [place] [address] Performed By: #### 5 8410-2 ####[facility] LABORATORYCLIA [id number] [place] [address] [place] RBC (Bld) [#/Vol] 3.21 10*6/uL Low 3.90-5.20 [facility] Comment on above: Order Comment: Speci men Type: BLOOD SPECIMENOrdering Facility: [facility] Address: [address] [place] [address] Performed By: #### 5 8410-2 ####[facility] LABORATORYCLIA [id number] [place] [address] [place] WBC (Bld) [#/Vol] 8.06 10*3/uL Normal 3.70-11.00 [facility] Comment on above: Order Comment: Speci men Type: BLOOD SPECIMENOrdering Facility: [facility] Address: [address] [place] [address] Performed By: #### 5 8410-2 ####[facility] LABORATORYCLIA [id number] [address] [place] CONSULT PROGon 01-20-[address] [facility] Comprehensive metabolic 2000 panelon 01-20-2025 Albumin [Mass/Vol] 3.2 g/dL Low 3.9-4.9 [facility] Comment on above: Order Comment: Speci men Type: BLOOD SPECIMENOrdering Facility: [facility] Address: [address] [place] [address] Performed By: #### 2 4323-8 ####[facility] LABORATORYCLIA [id number] [address] [place] ALP [Catalytic activity/Vol] 197 U/L High 34-123 [facility] Comment on above: Order Comment: Speci men Type: BLOOD SPECIMENOrdering Facility: [facility] Address: [address] [place] [address] Performed By: #### 2 4323-8 ####[facility] LABORATORYCLIA [id number] [address] [place] ALT With P-5'-P [Catalytic activity/Vol] 60 U/L High 7-38 [facility] Comment on above: Order Comment: Speci men Type: BLOOD SPECIMENOrdering Facility: [facility] Address: [address] [place] [address] Performed By: #### 2 4323-8 ####[facility] LABORATORYCLIA [id number] [address] [place] Anion gap [Moles/Vol] 10 mmol/L Normal 8-15 [facility] Comment on above: Order Comment: Speci men Type: BLOOD SPECIMENOrdering Facility: [facility] Address: [address] [place] [address] Performed By: #### 2 4323-8 ####[facility] LABORATORYCLIA [id number] [place] [address] [place] AST With P-5'-P [Catalytic activity/Vol] 32 U/L Normal 13-35 [facility] Comment on above: Order Comment: Speci men Type: BLOOD SPECIMENOrdering Facility: [facility] Address: [address] [place] [address] Performed By: #### 2 4323-8 ####[facility] LABORATORYCLIA [id number] [address] [place] Bilirubin [Mass/Vol] 3.1 mg/dL High 0.2-1.3 [facility] Comment on above: Order Comment: Speci men Type: BLOOD SPECIMENOrdering Facility: [facility] Address: [address] [place] [address] Performed By: #### 2 4323-8 ####[facility] LABORATORYCLIA [id number] [address] STATES OF [facility] Calcium [Mass/Vol] 8.9 mg/dL Normal 8.5-10.2 [facility] Comment on above: Order Comment: Speci men Type: BLOOD SPECIMENOrdering Facility: [facility] Address: [address] [place] [address] Performed By: #### 2 4323-8 ####[facility]ORATORYCLIA [id number] [place] [address] [place] Chloride [Moles/Vol] 102 mmol/L Normal 98-107 [facility] Comment on above: Order Comment: Speci men Type: BLOOD SPECIMENOrdering Facility: [facility] Address: [address] [place] [address] Performed By: #### 2 4323-8 ####[facility]ORATORYCLIA [id number] [address] [place] CO2 [Moles/Vol] 23 mmol/L Normal 22-30 [facility] Comment on above: Order Comment: Speci men Type: BLOOD SPECIMENOrdering Facility: [facility] Address: [address] [place] [address] Performed By: #### 2 4323-8 ####[facility] LABORATORYCLIA [id number] [address] STATES OF [facility] Creatinine [Mass/Vol] 0.65 mg/dL Normal 0.58-0.96 [facility] Comment on above: Order Comment: Speci men Type: BLOOD SPECIMENOrdering Facility: [facility] Address: [address] [place] [address] Performed By: #### 2 4323-8 ####[facility] LABORATORYCLIA [id number] [address] Creatinine and Glomerular filtration rate.predicted panel (S/P/Bld) 87 mL/min/1.73m??? Normal >=60 [facility] Comment on above: Order Comment: Speci men Type: BLOOD SPECIMENOrdering Facility: [facility] Address: [address] [place] [address] Result Comment: Kya mated Glomerular Filtration Rate [...] actual GFR. Performed By: #### 2 4323-8 ####[facility] LABORATORYCLIA [id number] [address] OF [facility] Glucose [Mass/Vol] 232 mg/dL High 74-99 [facility] Comment on above: Order Comment: Elinori shantell Type: BLOOD SPECIMENOrdering Facility: [facility] Address: [address] [place] [address] Result Comment: The [place] Diabetes Association (ADA) provides guidance for cutoff [...] Standards of Medical Care in Diabetes 2016, [place] [employer]. Diabetes Care. 2016.39(Suppl 1). Performed By: #### 2 4323-8 ####[facility] LABORATORYCLIA [id number] [place] [address] [place] Potassium [Moles/Vol] 4.1 mmol/L Normal 3.7-5.1 [facility] Comment on above: Order Comment: Speci men Type: BLOOD SPECIMENOrdering Facility: [facility] Address: [address] [place] [address] Performed By: #### 2 4323-8 ####[facility] LABORATORYCLIA [id number] [place] [address] [place] Protein [Mass/Vol] 5.7 g/dL Low 6.3-8.0 [facility] Comment on above: Order Comment: Speci men Type: BLOOD SPECIMENOrdering Facility: [facility] Address: [address] [place] [address] Performed By: #### 2 4323-8 ####[facility] LABORATORYCLIA [id number] [place] [address] [place] Sodium [Moles/Vol] 135 mmol/L Low 136-144 [facility] Comment on above: Order Comment: Speci men Type: BLOOD SPECIMENOrdering Facility: [facility] Address: [address] [place] [address] Performed By: #### 2 4323-8 ####[facility] LABORATORYCLIA [id number] [place] [address] [place] Urea nitrogen [Mass/Vol] 14 mg/dL Normal 7-21 [facility] Comment on above: Order Comment: Speci men Type: BLOOD SPECIMENOrdering Facility: [facility] Address: [address] [place] [address] Performed By: #### 2 4323-8 ####[facility] LABORATORYCLIA [id number] [place] [address] [place] ALLIED HEALTHon 01-19-[address] [facility] CBC panel Auto (Bld)on 01-19 Erythrocyte distribution width (RBC) [Ratio] 15.8 % High 11.5-15.0 [facility] Comment on above: Order Comment: Speci men Type: BLOOD SPECIMENOrdering Facility: [facility] Address: [address] [place] [address] Performed By: #### 5 8410-2 ####[facility] LABORATORYCLIA [id number] [address] [place] Hematocrit (Bld) [Volume fraction] 30.9 % Low 36.0-46.0 [facility] Comment on above: Order Comment: Speci men Type: BLOOD SPECIMENOrdering Facility: [facility] Address: [address] [place] [address] Performed By: #### 5 8410-2 ####[facility] LABORATORYCLIA [id number] [address] [place] Hemoglobin (Bld) [Mass/Vol] 10.3 g/dL Low 11.5-15.5 [facility] Comment on above: Order Comment: Speci men Type: BLOOD SPECIMENOrdering Facility: [facility] Address: [address] [place] [address] Performed By: #### 5 8410-2 ####[facility] LABORATORYCLIA [id number] [address] [place] MCH (RBC) [Entitic mass] 30.7 pg Normal 26.0-34.0 [facility] Comment on above: Order Comment: Speci men Type: BLOOD SPECIMENOrdering Facility: [facility] Address: [address] [place] [address] Performed By: #### 5 8410-2 ####[facility] LABORATORYCLIA [id number] [address] STATES [facility] MCHC (RBC) [Mass/Vol] 33.3 g/dL Normal 30.5-36.0 [facility] Comment on above: Order Comment: Speci men Type: BLOOD SPECIMENOrdering Facility: [facility] Address: [address] [place] [address] Performed By: #### 5 8410-2 ####[facility] LABORATORYCLIA [id number] [address] [place] MCV (RBC) [Entitic vol] 92.2 fL Normal 80.0-100.0 [facility] Comment on above: Order Comment: Speci men Type: BLOOD SPECIMENOrdering Facility: [facility] Address: [address] [place] [address] Performed By: #### 5 8410-2 ####[facility] LABORATORYCLIA [id number] [address] Nucleated RBC (Bld) [#/Vol] 10*3/uL Normal <0.01 [facility] Comment on above: Order Comment: Speci men Type: BLOOD SPECIMENOrdering Facility: [facility] Address: [address] [place] [address] Performed By: #### 5 8410-2 ####[facility] LABORATORYCLIA [id number] [address] [place] Platelet mean volume (Bld) [Entitic vol] 13.9 fL High 9.0-12.7 [facility] Comment on above: Order Comment: Speci men Type: BLOOD SPECIMENOrdering Facility: [facility] Address: [address] [place] [address] Performed By: #### 5 8410-2 ####[facility] LABORATORYCLIA [id number] [address] [place] Platelets (Bld) [#/Vol] 219 10*3/uL Normal 150-400 [facility] Comment on above: Order Comment: Speci men Type: BLOOD SPECIMENOrdering Facility: [facility] Address: [address] [place] [address] Performed By: #### 5 8410-2 ####[facility] LABORATORYCLIA [id number] [place] [id number] [place] RBC (Bld) [#/Vol] 3.35 10*6/uL Low 3.90-5.20 [facility] Comment on above: Order Comment: Speci men Type: BLOOD SPECIMENOrdering Facility: [facility] Address: [address] [place] [address] Performed By: #### 5 8410-2 ####[facility] LABORATORYCLIA [id number] [address] STATES OF [facility] WBC (Bld) [#/Vol] 9.47 10*3/uL Normal 3.70-11.00 [facility] Comment on above: Order Comment: Speci men Type: BLOOD SPECIMENOrdering Facility: [facility] Address: [address] [place] [address] Performed By: #### 5 8410-2 ####[facility] [facility]ATORYCLIA [id number] [address] [place] CNPNon 01-19-2025 CNPN Normal [facility] CONSULT PROGon 01-19-[address] [facility] Comprehensive metabolic 2000 panelon 01-19-2025 Albumin [Mass/Vol] 3.3 g/dL Low 3.9-4.9 [facility] Comment on above: Order Comment: Speci men Type: BLOOD SPECIMENOrdering Facility: [facility] Address: [address] [place] [address] Performed By: #### 2 4323-8 ####[facility] LABORATORYCLIA [id number] [address] ALP [Catalytic activity/Vol] 241 U/L High 34-123 [facility] Comment on above: Order Comment: Speci men Type: BLOOD SPECIMENOrdering Facility: [facility] Address: [address] [place] [address] Performed By: #### 2 4323-8 ####[facility]ORATORYCLIA [id number] [address] [place] ALT With P-5'-P [Catalytic activity/Vol] 78 U/L High 7-38 [facility] Comment on above: Order Comment: Speci men Type: BLOOD SPECIMENOrdering Facility: [facility] Address: [address] [place] [address] Performed By: #### 2 4323-8 ####[facility]ATORYCLIA [id number] [address] [place] Anion gap [Moles/Vol] 10 mmol/L Normal 8-15 [facility] Comment on above: Order Comment: Speci men Type: BLOOD SPECIMENOrdering Facility: [facility] Address: [address] [place] [address] Performed By: #### 2 4323-8 ####[facility] LABORATORYCLIA [id number] [address] STATES OF [facility] AST With P-5'-P [Catalytic activity/Vol] 38 U/L High 13-35 [facility] Comment on above: Order Comment: Speci men Type: BLOOD SPECIMENOrdering Facility: [facility] Address: [address] [place] [address] Performed By: #### 2 4323-8 ####[facility] LABORATORYCLIA [id number] [address] [place] Bilirubin [Mass/Vol] 3.8 mg/dL High 0.2-1.3 [facility] Comment on above: Order Comment: Speci men Type: BLOOD SPECIMENOrdering Facility: [facility] Address: [address] [place] [address] Performed By: #### 2 4323-8 ####[facility] LABORATORYCLIA [id number] [address] [place] Calcium [Mass/Vol] 9.0 mg/dL Normal 8.5-10.2 [facility] Comment on above: Order Comment: Speci men Type: BLOOD SPECIMENOrdering Facility: [facility] Address: [address] [place] [address] Performed By: #### 2 4323-8 ####[facility] LABORATORYCLIA [id number] [address] [place] Chloride [Moles/Vol] 97 mmol/L Low 98-107 [facility] Comment on above: Order Comment: Speci men Type: BLOOD SPECIMENOrdering Facility: [facility] Address: [address] [place] [address] Performed By: #### 2 4323-8 ####[facility] LABORATORYCLIA [id number] [address] [place] CO2 [Moles/Vol] 23 mmol/L Normal 22-30 [facility] Comment on above: Order Comment: Speci men Type: BLOOD SPECIMENOrdering Facility: [facility] Address: [address] [place] [address] Performed By: #### 2 4323-8 ####[facility] LABORATORYCLIA [id number] [address] [place] Creatinine [Mass/Vol] 0.62 mg/dL Normal 0.58-0.96 [facility] Comment on above: Order Comment: Speci men Type: BLOOD SPECIMENOrdering Facility: [facility] Address: [address] [place] [address] Performed By: #### 2 4323-8 ####[facility] LABORATORYCLIA [id number] [address] Creatinine and Glomerular filtration rate.predicted panel (S/P/Bld) 88 mL/min/1.73m??? Normal >=60 [facility] Comment on above: Order Comment: Speci men Type: BLOOD SPECIMENOrdering Facility: [facility] Address: [address] [place] [address] Result Comment: Kya mated Glomerular Filtration Rate [...] By: #### 2 4323-8 ####[facility]PITALCLIA [id number] [place] [address] [place] Glucose [Mass/Vol] 262 mg/dL High 74-99 [facility] Comment on above: Order Comment: Dayron stinson Type: BLOOD SPECIMENOrdering Facility: [facility] Address: [address] [place] [address] Result Comment: The [place] Diabetes Association (ADA) provides guidance for cutoff [...] Standards of Medical Care in Diabetes 2016, [place] [employer]. Diabetes Care. 2016.39(Suppl 1). Performed By: #### 2 4323-8 ####[facility] LABORATORYCLIA [id number] [place] [address] [place] Potassium [Moles/Vol] 3.7 mmol/L Normal 3.7-5.1 [facility] Comment on above: Order Comment: Dayron stinson Type: BLOOD SPECIMENOrdering Facility: [facility] Address: [address] [place] [address] Performed By: #### 2 4323-8 ####[facility] LABORATORYIA [id number] [place] [address] [place] Protein [Mass/Vol] 5.7 g/dL Low 6.3-8.0 [facility] Comment on above: Order Comment: Dayron stinson Type: BLOOD SPECIMENOrdering Facility: [facility] Address: [address] [place] [address] Performed By: #### 2 4323-8 ####[facility] LABORATORYCLIA [id number] [address] STATES OF [facility] Sodium [Moles/Vol] 130 mmol/L Low 136-144 [facility] Comment on above: Order Comment: Speci men Type: BLOOD SPECIMENOrdering Facility: [facility] Address: [address] [place] [address] Performed By: #### 2 4323-8 ####[facility] LABORATORYCLIA [id number] [address] [place] Urea nitrogen [Mass/Vol] 14 mg/dL Normal 7-21 [facility] Comment on above: Order Comment: Speci men Type: BLOOD SPECIMENOrdering Facility: [facility] Address: [address] [place] [address] Performed By: #### 2 4323-8 ####[facility] LABORATORYCLIA [id number] [address] [place] ALLIED HEALTHon 01-18-[address] [facility] CASE MANAGEMon 01-18-[address] [facility] CBC panel Auto (Bld)on 01-18 Erythrocyte distribution width (RBC) [Ratio] 16.4 % High 11.5-15.0 [facility] Comment on above: Order Comment: Speci men Type: BLOOD SPECIMENOrdering Facility: [facility] Address: [address] [place] [address] Performed By: #### 5 8410-2 ####[facility] LABORATORYCLIA [id number] [address] [place] Hematocrit (Bld) [Volume fraction] 31.9 % Low 36.0-46.0 [facility] Comment on above: Order Comment: Speci men Type: BLOOD SPECIMENOrdering Facility: [facility] Address: [address] [place] [address] Performed By: #### 5 8410-2 ####[facility] LABORATORYCLIA [id number] [address] Hemoglobin (Bld) [Mass/Vol] 10.7 g/dL Low 11.5-15.5 [facility] Comment on above: Order Comment: Speci men Type: BLOOD SPECIMENOrdering Facility: [facility] Address: [address] [place] [address] Performed By: #### 5 8410-2 ####[facility] LABORATORYCLIA [id number] [address] OF [facility] MCH (RBC) [Entitic mass] 30.7 pg Normal 26.0-34.0 [facility] Comment on above: Order Comment: Speci men Type: BLOOD SPECIMENOrdering Facility: [facility] Address: [address] [place] [address] Performed By: #### 5 8410-2 ####[facility] LABORATORYCLIA [id number] [address] STATES [facility] MCHC (RBC) [Mass/Vol] 33.5 g/dL Normal 30.5-36.0 [facility] Comment on above: Order Comment: Speci men Type: BLOOD SPECIMENOrdering Facility: [facility] Address: [address] [place] [address] Performed By: #### 5 8410-2 ####[facility] LABORATORYCLIA [id number] [address] OF [facility] MCV (RBC) [Entitic vol] 91.7 fL Normal 80.0-100.0 [facility] Comment on above: Order Comment: Speci men Type: BLOOD SPECIMENOrdering Facility: [facility] Address: [address] [place] [address] Performed By: #### 5 8410-2 ####[facility] LABORATORYCLIA [id number] [address] Nucleated RBC (Bld) [#/Vol] 10*3/uL Normal <0.01 [facility] Comment on above: Order Comment: Speci men Type: BLOOD SPECIMENOrdering Facility: [facility] Address: [address] [place] [address] Performed By: #### 5 8410-2 ####[facility] LABORATORYCLIA [id number] [address] [place] Platelet mean volume (Bld) [Entitic vol] 14.1 fL High 9.0-12.7 [facility] Comment on above: Order Comment: Speci men Type: BLOOD SPECIMENOrdering Facility: [facility] Address: [address] [place] [address] Performed By: #### 5 8410-2 ####[facility] LABORATORYCLIA [id number] [address] [place] Platelets (Bld) [#/Vol] 207 10*3/uL Normal 150-400 [facility] Comment on above: Order Comment: Speci men Type: BLOOD SPECIMENOrdering Facility: [facility] Address: [address] [place] [address] Result Comment: No c lot detected. Performed By: #### 5 8410-2 ####[facility] LABORATORYCLIA [id number] [address] [place] RBC (Bld) [#/Vol] 3.48 10*6/uL Low 3.90-5.20 [facility] Comment on above: Order Comment: Speci men Type: BLOOD SPECIMENOrdering Facility: [facility] Address: [address] [place] [address] Performed By: #### 5 8410-2 ####[facility] LABORATORYCLIA [id number] [address] [place] WBC (Bld) [#/Vol] 9.97 10*3/uL Normal 3.70-11.00 [facility] Comment on above: Order Comment: Speci men Type: BLOOD SPECIMENOrdering Facility: [facility] Address: [address] [place] [address] Performed By: #### 5 8410-2 ####[facility] LABORATORYCLIA [id number] [address] [place] CONSULTon 01-18-[address] [facility] CONSULT Normal [facility] CONSULT PROGon 01-18-[address] [facility] Comprehensive metabolic 2000 panelon 01-18-2025 Albumin [Mass/Vol] 3.2 g/dL Low 3.9-4.9 [facility] Comment on above: Order Comment: Speci men Type: BLOOD SPECIMENOrdering Facility: [facility] Address: [address] [place] [address] Performed By: #### 2 4323-8 ####[facility] LABORATORYCLIA [id number] [place] [address] [place] ALP [Catalytic activity/Vol] 261 U/L High 34-123 [facility] Comment on above: Order Comment: Speci men Type: BLOOD SPECIMENOrdering Facility: [facility] Address: [address] [place] [address] Performed By: #### 2 4323-8 ####[facility] LABORATORYCLIA [id number] [place] [address] [place] ALT With P-5'-P [Catalytic activity/Vol] 88 U/L High 7-38 [facility] Comment on above: Order Comment: Speci men Type: BLOOD SPECIMENOrdering Facility: [facility] Address: [address] [place] [address] Performed By: #### 2 4323-8 ####[facility] LABORATORYCLIA [id number] [place] [address] [place] Anion gap [Moles/Vol] 14 mmol/L Normal 8-15 [facility] Comment on above: Order Comment: Speci men Type: BLOOD SPECIMENOrdering Facility: [facility] Address: [address] [place] [address] Performed By: #### 2 4323-8 ####[facility] LABORATORYCLIA [id number] [address] [place] AST With P-5'-P [Catalytic activity/Vol] 33 U/L Normal 13-35 [facility] Comment on above: Order Comment: Speci men Type: BLOOD SPECIMENOrdering Facility: [facility] Address: [address] [place] [address] Performed By: #### 2 4323-8 ####[facility]ATORYCLIA [id number] [place] [address] [place] Bilirubin [Mass/Vol] 4.8 mg/dL High 0.2-1.3 [facility] Comment on above: Order Comment: Speci men Type: BLOOD SPECIMENOrdering Facility: [facility] Address: [address] [place] [address] Performed By: #### 2 4323-8 ####[facility] LABORATORYCLIA [id number] [place] [address] [place] Calcium [Mass/Vol] 9.1 mg/dL Normal 8.5-10.2 [facility] Comment on above: Order Comment: Speci men Type: BLOOD SPECIMENOrdering Facility: [facility] Address: [address] [place] [address] Performed By: #### 2 4323-8 ####[facility]ORATORYCLIA [id number] [place] [address] [place] Chloride [Moles/Vol] 100 mmol/L Normal 98-107 [facility] Comment on above: Order Comment: Speci men Type: BLOOD SPECIMENOrdering Facility: [facility] Address: [address] [place] [address] Performed By: #### 2 4323-8 ####[facility]ORATORYCLIA [id number] [place] [address] [place] CO2 [Moles/Vol] 20 mmol/L Low 22-30 [facility] Comment on above: Order Comment: Speci men Type: BLOOD SPECIMENOrdering Facility: [facility] Address: [address] [place] [address] Performed By: #### 2 4323-8 ####[facility]ATORYCLIA [id number] [place] [address] [place] Creatinine [Mass/Vol] 0.63 mg/dL Normal 0.58-0.96 [facility] Comment on above: Order Comment: Elinorbertrand stinson Type: BLOOD SPECIMENOrdering Facility: [facility] Address: [address] [place] [address] Performed By: #### 2 4323-8 ####[facility] LABORATORYCLIA [id number] [place] [address] [place] Creatinine and Glomerular filtration rate.predicted panel (S/P/Bld) 88 mL/min/1.73m??? Normal >=60 [facility] Comment on above: Order Comment: Dayron shantell Type: BLOOD SPECIMENOrdering Facility: [facility] Address: [address] [place] [address] Result Comment: Kya mated Glomerular Filtration Rate [...] actual GFR. Performed By: #### 2 4323-8 ####[facility] LABORATORYCLIA [id number] [place] [address] [place] Glucose [Mass/Vol] 244 mg/dL High 74-99 [facility] Comment on above: Order Comment: Elinorbertrand stinson Type: BLOOD SPECIMENOrdering Facility: [facility] Address: [address] [place] [address] Result Comment: The [place] Diabetes Association (ADA) provides guidance for cutoff [...] Standards of Medical Care in Diabetes 2016, [place] Diabetes [employer]. Diabetes Care. 2016.39(Suppl 1). Performed By: #### 2 4323-8 ####[facility]ORATORYCLIA [id number] [place] [address] [place] Potassium [Moles/Vol] 3.9 mmol/L Normal 3.7-5.1 [facility] Comment on above: Order Comment: Speci men Type: BLOOD SPECIMENOrdering Facility: [facility] Address: [address] [place] [address] Performed By: #### 2 4323-8 ####[facility] LABORATORYCLIA [id number] [place] [address] [place] Protein [Mass/Vol] 6.0 g/dL Low 6.3-8.0 [facility] Comment on above: Order Comment: Speci men Type: BLOOD SPECIMENOrdering Facility: [facility] Address: [address] [place] [address] Performed By: #### 2 4323-8 ####[facility] LABORATORYCLIA [id number] [address] STATES OF [facility] Sodium [Moles/Vol] 134 mmol/L Low 136-144 [facility] Comment on above: Order Comment: Speci men Type: BLOOD SPECIMENOrdering Facility: [facility] Address: [address] [place] [address] Performed By: #### 2 4323-8 ####[facility] LABORATORYCLIA [id number] [address] [place] Urea nitrogen [Mass/Vol] 10 mg/dL Normal 7-21 [facility] Comment on above: Order Comment: Speci men Type: BLOOD SPECIMENOrdering Facility: [facility] Address: [address] [place] [address] Performed By: #### 2 4323-8 ####[facility] LABORATORYCLIA [id number] [place] [address] [place] MEDICAL EMERon 01-18-[address] [facility] NUTRITIONon 01-18-[address] [facility] PT EDon 01-18-[address] [facility] CBC panel Auto (Bld)on 01-17 Erythrocyte distribution width (RBC) [Ratio] 17.0 % High 11.5-15.0 [facility] Comment on above: Order Comment: Speci men Type: BLOOD SPECIMENOrdering Facility: [facility] Address: [address] [place] [address] Performed By: #### 5 8410-2 ####[facility] LABORATORYCLIA [id number] [address]#### [address]30-1 ####[facility] LABCLIA [id number] [address] [place] Hematocrit (Bld) [Volume fraction] 35.7 % Low 36.0-46.0 [facility] Comment on above: Order Comment: Speci men Type: BLOOD SPECIMENOrdering Facility: [facility] Address: [address] [place] [address] Performed By: #### 5 8410-2 ####[facility] LABORATORYCLIA [id number] [address] [place]#### 14555-1 ####[facility] LABCLIA [id number] [address] [place] Hemoglobin (Bld) [Mass/Vol] 11.7 g/dL Normal 11.5-15.5 [facility] Comment on above: Order Comment: Speci men Type: BLOOD SPECIMENOrdering Facility: [facility] Address: [address] [place] [address] Performed By: #### 5 8410-2 ####[facility] LABORATORYCLIA [id number] [address] [place]#### 59709-9 ####[facility] LABCLIA [id number] [address] [place] MCH (RBC) [Entitic mass] 30.0 pg Normal 26.0-34.0 [facility] Comment on above: Order Comment: Speci men Type: BLOOD SPECIMENOrdering Facility: [facility] Address: [address] [place] [address] Performed By: #### 5 8410-2 ####[facility] LABORATORYCLIA [id number] [place] [address] [place]#### 29278-5 ####[facility] LABCLIA [id number] [place] [address] [place] MCHC (RBC) [Mass/Vol] 32.8 g/dL Normal 30.5-36.0 [facility] Comment on above: Order Comment: Speci men Type: BLOOD SPECIMENOrdering Facility: [facility] Address: [address] [place] [address] Performed By: #### 5 8410-2 ####[facility] LABORATORYCLIA [id number] [address] [place]#### 11885-9 ####[facility] LABCLIA [id number] [place] [address] [place] MCV (RBC) [Entitic vol] 91.5 fL Normal 80.0-100.0 [facility] Comment on above: Order Comment: Speci men Type: BLOOD SPECIMENOrdering Facility: [facility] Address: [address] [place] [address] Performed By: #### 5 8410-2 ####[facility] LABORATORYCLIA [id number] [address]#### 24795-7 ####[facility] LABCLIA [id number] [place] [address] [place] Nucleated RBC (Bld) [#/Vol] 10*3/uL Normal <0.01 [facility] Comment on above: Order Comment: Speci men Type: BLOOD SPECIMENOrdering Facility: [facility] Address: [address] [place] [address] Performed By: #### 5 8410-2 ####[facility] LABORATORYCLIA [id number] [address]#### 00430-5 ####[facility] LABCLIA [id number] [address] [address] [place] Platelet mean volume (Bld) [Entitic vol] 13.9 fL High 9.0-12.7 [facility] Comment on above: Order Comment: Speci men Type: BLOOD SPECIMENOrdering Facility: [facility] Address: [address] [place] [address] Performed By: #### 5 8410-2 ####[facility] LABORATORYCLIA [id number] [address]#### 74494-6 ####[facility] LABCLIA [id number] [place] [address] [place] Platelets (Bld) [#/Vol] 212 10*3/uL Normal 150-400 [facility] Comment on above: Order Comment: Speci men Type: BLOOD SPECIMENOrdering Facility: [facility] Address: [address] [place] [address] Result Comment: Plat elet count confirmed by manual review of peripheral blood smear. No clot detected. Performed By: #### 5 8410-2 ####[facility] LABORATORYCLIA [id number] [address]#### 52750-7 ####[facility] LABCLIA [id number] [place] [address] [place] RBC (Bld) [#/Vol] 3.90 10*6/uL Normal 3.90-5.20 [facility] Comment on above: Order Comment: Speci men Type: BLOOD SPECIMENOrdering Facility: [facility] Address: [address] [place] [address] Performed By: #### 5 8410-2 ####[facility] LABORATORYCLIA [id number] [address] [place]#### 67567-4 ####[facility] LABCLIA [id number] [place] [address] [place] WBC (Bld) [#/Vol] 13.38 10*3/uL High 3.70-11.00 [facility] Comment on above: Order Comment: Speci men Type: BLOOD SPECIMENOrdering Facility: [facility] Address: [address] [place] [address] Performed By: #### 5 8410-2 ####[facility] LABORATORYCLIA [id number] [address] [place]#### 29310-1 ####[facility] LABCLIA [id number] [address] [place] Comprehensive metabolic 2000 panelon 01-17-2025 Albumin [Mass/Vol] 3.7 g/dL Low 3.9-4.9 [facility] Comment on above: Order Comment: Speci men Type: BLOOD SPECIMENOrdering Facility: [facility] Address: [address] [place] [address] Performed By: #### 2 4323-8 ####[facility] LABORATORYCLIA [id number] [address] [place] ALP [Catalytic activity/Vol] 350 U/L High 34-123 [facility] Comment on above: Order Comment: Speci men Type: BLOOD SPECIMENOrdering Facility: [facility] Address: [address] [place] [address] Performed By: #### 2 4323-8 ####[facility] LABORATORYCLIA [id number] [address] [place] ALT With P-5'-P [Catalytic activity/Vol] 137 U/L High 7-38 [facility] Comment on above: Order Comment: Speci men Type: BLOOD SPECIMENOrdering Facility: [facility] Address: [address] [place] [address] Performed By: #### 2 4323-8 ####[facility] LABORATORYCLIA [id number] [place] [address] [place] Anion gap [Moles/Vol] 19 mmol/L High 8-15 [facility] Comment on above: Order Comment: Speci men Type: BLOOD SPECIMENOrdering Facility: [facility] Address: [address] [place] [address] Performed By: #### 2 4323-8 ####[facility] LABORATORYCLIA [id number] [place] [address] [place] AST With P-5'-P [Catalytic activity/Vol] 47 U/L High 13-35 [facility] Comment on above: Order Comment: Speci men Type: BLOOD SPECIMENOrdering Facility: [facility] Address: [address] [place] [address] Performed By: #### 2 4323-8 ####[facility] LABORATORYCLIA [id number] [place] [address] [place] Bilirubin [Mass/Vol] 6.6 mg/dL High 0.2-1.3 [facility] Comment on above: Order Comment: Speci men Type: BLOOD SPECIMENOrdering Facility: [facility] Address: [address] [place] [address] Performed By: #### 2 4323-8 ####[facility] LABORATORYCLIA [id number] [address] [place] Calcium [Mass/Vol] 9.5 mg/dL Normal 8.5-10.2 [facility] Comment on above: Order Comment: Speci men Type: BLOOD SPECIMENOrdering Facility: [facility] Address: [address] [place] [address] Performed By: #### 2 4323-8 ####[facility]ORATORYCLIA [id number] [place] [address] [place] Chloride [Moles/Vol] 95 mmol/L Low 98-107 [facility] Comment on above: Order Comment: Speci men Type: BLOOD SPECIMENOrdering Facility: [facility] Address: [address] [place] [address] Performed By: #### 2 4323-8 ####[facility] LABORATORYCLIA [id number] [place] [address] [place] CO2 [Moles/Vol] 17 mmol/L Low 22-30 [facility] Comment on above: Order Comment: Speci men Type: BLOOD SPECIMENOrdering Facility: [facility] Address: [address] [place] [address] Performed By: #### 2 4323-8 ####[facility] LABORATORYCLIA [id number] [address] STATES OF [facility] Creatinine [Mass/Vol] 0.55 mg/dL Low 0.58-0.96 [facility] Comment on above: Order Comment: Speci men Type: BLOOD SPECIMENOrdering Facility: [facility] Address: [address] [place] [address] Performed By: #### 2 4323-8 ####[facility] LABORATORYCLIA [id number] [address] Creatinine and Glomerular filtration rate.predicted panel (S/P/Bld) 91 mL/min/1.73m??? Normal >=60 [facility] Comment on above: Order Comment: Speci men Type: BLOOD SPECIMENOrdering Facility: [facility] Address: [address] [place] [address] Result Comment: Kya mated Glomerular Filtration Rate [...] actual GFR. Performed By: #### 2 4323-8 ####[facility] LABORATORYCLIA [id number] [address] [place] Glucose [Mass/Vol] 276 mg/dL High 74-99 [facility] Comment on above: Order Comment: Speci men Type: BLOOD SPECIMENOrdering Facility: [facility] Address: [address] [place] [address] Result Comment: The [place] Diabetes Association (ADA) provides guidance for cutoff [...] Standards of Medical Care in Diabetes 2016, [place] Diabetes Association. Diabetes Care. 2016.39(Suppl 1). Performed By: #### 2 4323-8 ####[facility] LABORATORYCLIA [id number] [place] [address] [place] Potassium [Moles/Vol] 4.2 mmol/L Normal 3.7-5.1 [facility] Comment on above: Order Comment: Elinorbertrand stinson Type: BLOOD SPECIMENOrdering Facility: [facility] Address: [address] [place] [address] Performed By: #### 2 4323-8 ####[facility] LABORATORYCLIA [id number] [place] [address] [place] Protein [Mass/Vol] 6.6 g/dL Normal 6.3-8.0 [facility] Comment on above: Order Comment: Elinori men Type: BLOOD SPECIMENOrdering Facility: [facility] Address: [address] [place] [address] Performed By: #### 2 4323-8 ####[facility] LABORATORYCLIA [id number] [place] [address] [place] Sodium [Moles/Vol] 131 mmol/L Low 136-144 [facility] Comment on above: Order Comment: Elinori shantell Type: BLOOD SPECIMENOrdering Facility: [facility] Address: [address] [place] [address] Performed By: #### 2 4323-8 ####[facility] LABORATORYCLIA [id number] [address] [place] Urea nitrogen [Mass/Vol] 11 mg/dL Normal 7-21 [facility] Comment on above: Order Comment: Speci men Type: BLOOD SPECIMENOrdering Facility: [facility] Address: [address] [place] [address] Performed By: #### 2 4323-8 ####[facility] LABORATORYCLIA [id number] [address] [place] HbA1c (Bld)on 01-17-2025 Average glucose Estimated from glycated hemoglobin (Bld) [Mass/Vol] 258 mg/dL Normal [facility] Comment on above: Order Comment: Speci men Type: BLOOD SPECIMENOrdering Facility: [facility] Address: [address] [place] [address] Result Comment: eAG: (Estimated average glucose) is a calculated value from HgbA1c and is account retention representative of the average blood glucose level in the last 2-3 month period. Performed By: #### 5 8410-2 ####[facility] LABORATORYCLIA [id number] [address]#### [address]-4 ####[facility] LABCLIA [id number] [address] [place] HbA1c (Bld) [Mass fraction] 10.6 % High 4.3-5.6 [facility] Comment on above: Order Comment: Speci men Type: BLOOD SPECIMENOrdering Facility: [facility] Address: [address] [place] [address] Result Comment: Amer [place] Diabetes Association guidelines indicate that patients with HgbA1c in the range 5.7-6.4% are at increased risk for development of diabetes, and intervention by lifestyle modification may be beneficial. HgbA1c greater or equal to 6.5% is considered diagnostic of diabetes. Performed By: #### 5 8410-2 ####[facility] LABORATORYCLIA [id number] [address] OF [place]#### [address]-6 ####[facility] LABCLIA [id number] [place] [address] [place] ALLIED HEALTHon 01-16-[address] [facility] CBC panel Auto (Bld)on 01-16 Erythrocyte distribution width (RBC) [Ratio] 16.8 % High 11.5-15.0 [facility] Comment on above: Order Comment: Speci men Type: BLOOD SPECIMENOrdering Facility: [facility] Address: [address] [place] [address] Performed By: #### 5 8410-2 ####[facility] LABORATORYCLIA [id number] [address] STATES OF [facility] Hematocrit (Bld) [Volume fraction] 36.9 % Normal 36.0-46.0 [facility] Comment on above: Order Comment: Speci men Type: BLOOD SPECIMENOrdering Facility: [facility] Address: [address] [place] [address] Performed By: #### 5 8410-2 ####[facility] LABORATORYCLIA [id number] [address] [place] Hemoglobin (Bld) [Mass/Vol] 12.4 g/dL Normal 11.5-15.5 [facility] Comment on above: Order Comment: Speci men Type: BLOOD SPECIMENOrdering Facility: [facility] Address: [address] [place] [address] Performed By: #### 5 8410-2 ####[facility] LABORATORYCLIA [id number] [address] [place] MCH (RBC) [Entitic mass] 29.7 pg Normal 26.0-34.0 [facility] Comment on above: Order Comment: Speci men Type: BLOOD SPECIMENOrdering Facility: [facility] Address: [address] [place] [address] Performed By: #### 5 8410-2 ####[facility] LABORATORYCLIA [id number] [address] STATES OF [facility] MCHC (RBC) [Mass/Vol] 33.6 g/dL Normal 30.5-36.0 [facility] Comment on above: Order Comment: Speci men Type: BLOOD SPECIMENOrdering Facility: [facility] Address: [address] [place] [address] Performed By: #### 5 8410-2 ####[facility] LABORATORYCLIA [id number] [address] [place] MCV (RBC) [Entitic vol] 88.5 fL Normal 80.0-100.0 [facility] Comment on above: Order Comment: Speci men Type: BLOOD SPECIMENOrdering Facility: [facility] Address: [address] [place] [address] Performed By: #### 5 8410-2 ####[facility] LABORATORYCLIA [id number] [address] Nucleated RBC (Bld) [#/Vol] 10*3/uL Normal <0.01 [facility] Comment on above: Order Comment: Speci men Type: BLOOD SPECIMENOrdering Facility: [facility] Address: [address] [place] [address] Performed By: #### 5 8410-2 ####[facility] LABORATORYCLIA [id number] [address] [place] Platelet mean volume (Bld) [Entitic vol] 13.4 fL High 9.0-12.7 [facility] Comment on above: Order Comment: Speci men Type: BLOOD SPECIMENOrdering Facility: [facility] Address: [address] [place] [address] Performed By: #### 5 8410-2 ####[facility] LABORATORYCLIA [id number] [address] [place] Platelets (Bld) [#/Vol] 210 10*3/uL Normal 150-400 [facility] Comment on above: Order Comment: Speci men Type: BLOOD SPECIMENOrdering Facility: [facility] Address: [address] [place] [address] Result Comment: Plat elet count confirmed by manual review of peripheral blood smear. No clot detected. Performed By: #### 5 8410-2 ####[facility] LABORATORYCLIA [id number] [address] OF [facility] RBC (Bld) [#/Vol] 4.17 10*6/uL Normal 3.90-5.20 [facility] Comment on above: Order Comment: Speci men Type: BLOOD SPECIMENOrdering Facility: [facility] Address: [address] [place] [address] Performed By: #### 5 8410-2 ####[facility] LABORATORYCLIA [id number] [address] WBC (Bld) [#/Vol] 13.14 10*3/uL High 3.70-11.00 [facility] Comment on above: Order Comment: Speci men Type: BLOOD SPECIMENOrdering Facility: [facility] Address: [address] [place] [address] Result Comment: Resu lts checked and verified. Performed By: #### 5 8410-2 ####[facility] LABORATORYCLIA [id number] [address] CEA SerPl-mCncon 01-16-2025 Carcinoembryonic Ag [Mass/Vol] 4.6 ng/mL High <3.0 [facility] Comment on above: Order Comment: Speci men Type: BLOOD SPECIMENOrdering Facility: [facility] Address: [address] [place] [address] Result Comment: This is a [employer] assay using chemiluminescence test methodology. Results determined by different manufacturers may not be comparable Performed By: #### 2 4108-3, 2039-03 ####[facility] LABORATORYCLIA [id number] [address] OF [facility] CONSULTon 01-16-[address] [facility] CT CHEST WO IVCONon 01-17-20 CT CHEST WO IVCON Normal [facility] Cancer Ag19-9 SerPl-aCncon 0 01-16-2025 Cancer Ag 19-9 Qn 306.0 [arb'U]/mL High <36.0 [facility] Comment on above: Order Comment: Speci men Type: BLOOD SPECIMENOrdering Facility: [facility] Address: [address] [place] [address] Result Comment: Can er antigen 19-9 test is used as an aid in monitoring response to treatment or recurrence in patients with established pancreatic, hepatobiliary, or gastrointestinal malignancies. Clinical correlation is required.The CA 19-9 test methodology used is the Electrochemiluminescence Immunoassay by [employer]. Results obtained with different methods or kits cannot be used interchangeably. Performed By: #### 2 4108-3, 9- ####[facility] LABORATORYCLIA [id number] [address] OF [facility] Comprehensive metabolic 2000 panelon 01-16-2025 Albumin [Mass/Vol] 3.8 g/dL Low 3.9-4.9 [facility] Comment on above: Order Comment: Speci men Type: BLOOD SPECIMENOrdering Facility: [facility] Address: [address] [place] [address] Performed By: #### 2 4323-8 ####[facility] LABORATORYCLIA [id number] [address] [place] ALP [Catalytic activity/Vol] 418 U/L High 34-123 [facility] Comment on above: Order Comment: Speci men Type: BLOOD SPECIMENOrdering Facility: [facility] Address: [address] [place] [address] Performed By: #### 2 4323-8 ####[facility] LABORATORYCLIA [id number] [address] STATES OF [facility] ALT With P-5'-P [Catalytic activity/Vol] 196 U/L High 7-38 [facility] Comment on above: Order Comment: Speci men Type: BLOOD SPECIMENOrdering Facility: [facility] Address: [address] [place] [address] Performed By: #### 2 4323-8 ####[facility] LABORATORYCLIA [id number] [place] [address] [place] Anion gap [Moles/Vol] 17 mmol/L High 8-15 [facility] Comment on above: Order Comment: Speci men Type: BLOOD SPECIMENOrdering Facility: [facility] Address: [address] [place] [address] Performed By: #### 2 4323-8 ####[facility] LABORATORYCLIA [id number] [place] [address] [place] AST With P-5'-P [Catalytic activity/Vol] 99 U/L High 13-35 [facility] Comment on above: Order Comment: Speci men Type: BLOOD SPECIMENOrdering Facility: [facility] Address: [address] [place] [address] Performed By: #### 2 4323-8 ####[facility] LABORATORYCLIA [id number] [place] [address] [place] Bilirubin [Mass/Vol] 10.2 mg/dL High 0.2-1.3 [facility] Comment on above: Order Comment: Speci men Type: BLOOD SPECIMENOrdering Facility: [facility] Address: [address] [place] [address] Performed By: #### 2 4323-8 ####[facility] LABORATORYCLIA [id number] [address] [place] Calcium [Mass/Vol] 9.1 mg/dL Normal 8.5-10.2 [facility] Comment on above: Order Comment: Speci men Type: BLOOD SPECIMENOrdering Facility: [facility] Address: [address] [place] [address] Performed By: #### 2 4323-8 ####[facility] LABORATORYCLIA [id number] [place] [address] [place] Chloride [Moles/Vol] 93 mmol/L Low 98-107 [facility] Comment on above: Order Comment: Speci men Type: BLOOD SPECIMENOrdering Facility: [facility] Address: [address] [place] [address] Performed By: #### 2 4323-8 ####[facility] LABORATORYCLIA [id number] [address] STATES OF [facility] CO2 [Moles/Vol] 19 mmol/L Low 22-30 [facility] Comment on above: Order Comment: Speci men Type: BLOOD SPECIMENOrdering Facility: [facility] Address: [address] [place] [address] Performed By: #### 2 4323-8 ####[facility] LABORATORYCLIA [id number] [address] OF [facility] Creatinine [Mass/Vol] 0.49 mg/dL Low 0.58-0.96 [facility] Comment on above: Order Comment: Speci men Type: BLOOD SPECIMENOrdering Facility: [facility] Address: [address] [place] [address] Performed By: #### 2 4323-8 ####[facility] LABORATORYCLIA [id number] [address] Creatinine and Glomerular filtration rate.predicted panel (S/P/Bld) 93 mL/min/1.73m??? Normal >=60 [facility] Comment on above: Order Comment: Speci men Type: BLOOD SPECIMENOrdering Facility: [facility] Address: [address] [place] [address] Result Comment: Kya mated Glomerular Filtration Rate [...] actual GFR. Performed By: #### 2 4323-8 ####[facility] LABORATORYCLIA [id number] [address] OF [facility] Glucose [Mass/Vol] 258 mg/dL High 74-99 [facility] Comment on above: Order Comment: Speci men Type: BLOOD SPECIMENOrdering Facility: [facility] Address: [address] [place] [address] Result Comment: The [place] Diabetes Association (ADA) provides guidance for cutoff [...] Standards of Medical Care in Diabetes 2016, [place] Diabetes Association. Diabetes Care. 2016.39(Suppl 1). Performed By: #### 2 4323-8 ####[facility] LABORATORYCLIA [id number] [place] [address] [place] Potassium [Moles/Vol] 3.3 mmol/L Low 3.7-5.1 [facility] Comment on above: Order Comment: Speci men Type: BLOOD SPECIMENOrdering Facility: [facility] Address: [address] [place] [address] Performed By: #### 2 4323-8 ####[facility] LABORATORYCLIA [id number] [place] [address] [place] [facility] Protein [Mass/Vol] 6.4 g/dL Normal 6.3-8.0 [facility] Comment on above: Order Comment: Speci men Type: BLOOD SPECIMENOrdering Facility: [facility] Address: [address] [place] [address] Performed By: #### 2 4323-8 ####[facility] LABORATORYCLIA [id number] [place] [address] [place] Sodium [Moles/Vol] 129 mmol/L Low 136-144 [facility] Comment on above: Order Comment: Speci men Type: BLOOD SPECIMENOrdering Facility: [facility] Address: [address] [place] [address] Performed By: #### 2 4323-8 ####[facility] LABORATORYCLIA [id number] [place] [address] [place] Urea nitrogen [Mass/Vol] 7 mg/dL Normal 05-17 [facility] Comment on above: Order Comment: Speci men Type: BLOOD SPECIMENOrdering Facility: [facility] Address: [address] [place] [address] Performed By: #### 2 4323-8 ####[facility] LABORATORYCLIA [id number] [place] [address] [place] ANES POSTPROC EVALon 025 ANES POSTPROC EVAL Normal [facility] ANES PRE-OPon 01-15-2025 ANES PRE-OP Normal [facility] CASE MGT INIT ASSESon 2024 CASE MGT INIT ASSES Normal [facility] CBC W Auto Differential pane l (Bld)on 01-15-2025 Basophils (Bld) [#/Vol] 0.04 10*3/uL Normal <0.11 [facility] Comment on above: Order Comment: Speci men Type: BLOOD SPECIMENOrdering Facility: [facility] Address: [address] [place] [address] Performed By: #### 5 7021-8 ####[facility] LABORATORYCLIA [id number] [address] [place] Basophils/100 WBC (Bld) 0.8 % Normal [facility] Comment on above: Order Comment: Speci men Type: BLOOD SPECIMENOrdering Facility: [facility] Address: [address] [place] [address] Performed By: #### 5 7021-8 ####[facility] LABORATORYCLIA [id number] [place] [address] [place] Differential cell count method Nom (Bld) Auto Normal [facility] Comment on above: Order Comment: Speci men Type: BLOOD SPECIMENOrdering Facility: [facility] Address: [address] [place] [address] Performed By: #### 5 7021-8 ####[facility] LABORATORYCLIA [id number] [place] [address] [place] Eosinophils (Bld) [#/Vol] 0.09 10*3/uL Normal <0.46 [facility] Comment on above: Order Comment: Speci men Type: BLOOD SPECIMENOrdering Facility: [facility] Address: [address] [place] [address] Performed By: #### 5 7021-8 ####[facility] LABORATORYCLIA [id number] [address] Eosinophils/100 WBC (Bld) 1.7 % Normal [facility] Comment on above: Order Comment: Speci men Type: BLOOD SPECIMENOrdering Facility: [facility] Address: [address] [place] [address] Performed By: #### 5 7021-8 ####[facility] LABORATORYCLIA [id number] [address] Erythrocyte distribution width (RBC) [Ratio] 17.2 % High 11.5-15.0 [facility] Comment on above: Order Comment: Speci men Type: BLOOD SPECIMENOrdering Facility: [facility] Address: [address] [place] [address] Performed By: #### 5 7021-8 ####[facility] LABORATORYCLIA [id number] [address] Hematocrit (Bld) [Volume fraction] 31.2 % Low 36.0-46.0 [facility] Comment on above: Order Comment: Speci men Type: BLOOD SPECIMENOrdering Facility: [facility] Address: [address] [place] [address] Performed By: #### 5 7021-8 ####[facility] LABORATORYCLIA [id number] [address] [place] Hemoglobin (Bld) [Mass/Vol] 10.9 g/dL Low 11.5-15.5 [facility] Comment on above: Order Comment: Speci men Type: BLOOD SPECIMENOrdering Facility: [facility] Address: [address] [place] [address] Performed By: #### 5 7021-8 ####[facility]ORATORYCLIA [id number] [address] [place] Immature granulocytes (Bld) [#/Vol] 0.03 10*3/uL Normal <0.10 [facility] Comment on above: Order Comment: Speci men Type: BLOOD SPECIMENOrdering Facility: [facility] Address: [address] [place] [address] Performed By: #### 5 7021-8 ####[facility]ORATORYCLIA [id number] [address] Immature granulocytes/100 WBC (Bld) 0.6 % Normal [facility] Comment on above: Order Comment: Speci men Type: BLOOD SPECIMENOrdering Facility: [facility] Address: [address] [place] [address] Performed By: #### 5 7021-8 ####[facility] LABORATORYCLIA [id number] [address] [place] Lymphocytes (Bld) [#/Vol] 0.98 10*3/uL Low 1.00-4.00 [facility] Comment on above: Order Comment: Speci men Type: BLOOD SPECIMENOrdering Facility: [facility] Address: [address] [place] [address] Performed By: #### 5 7021-8 ####[facility]ORATORYCLIA [id number] [address] Lymphocytes/100 WBC (Bld) 18.6 % Normal [facility] Comment on above: Order Comment: Speci men Type: BLOOD SPECIMENOrdering Facility: [facility] Address: [address] [place] [address] Performed By: #### 5 7021-8 ####[facility]ORATORYCLIA [id number] [place] [address] [place] MCH (RBC) [Entitic mass] 30.8 pg Normal 26.0-34.0 [facility] Comment on above: Order Comment: Speci men Type: BLOOD SPECIMENOrdering Facility: [facility] Address: [address] [place] [address] Performed By: #### 5 7021-8 ####[facility] LABORATORYCLIA [id number] [address] STATES [facility] MCHC (RBC) [Mass/Vol] 34.9 g/dL Normal 30.5-36.0 [facility] Comment on above: Order Comment: Speci men Type: BLOOD SPECIMENOrdering Facility: [facility] Address: [address] [place] [address] Performed By: #### 5 7021-8 ####[facility] LABORATORYCLIA [id number] [address] [place] MCV (RBC) [Entitic vol] 88.1 fL Normal 80.0-100.0 [facility] Comment on above: Order Comment: Speci men Type: BLOOD SPECIMENOrdering Facility: [facility] Address: [address] [place] [address] Performed By: #### 5 7021-8 ####[facility] LABORATORYCLIA [id number] [address] STATES OF [facility] Monocytes (Bld) [#/Vol] 0.65 10*3/uL Normal <0.87 [facility] Comment on above: Order Comment: Speci men Type: BLOOD SPECIMENOrdering Facility: [facility] Address: [address] [place] [address] Performed By: #### 5 7021-8 ####[facility] LABORATORYCLIA [id number] [address] STATES [facility] Monocytes/100 WBC (Bld) 12.3 % Normal [facility] Comment on above: Order Comment: Speci men Type: BLOOD SPECIMENOrdering Facility: [facility] Address: [address] [place] [address] Performed By: #### 5 7021-8 ####[facility] LABORATORYCLIA [id number] [address] [place] Neutrophils (Bld) [#/Vol] 3.48 10*3/uL Normal 1.45-7.50 [facility] Comment on above: Order Comment: Speci men Type: BLOOD SPECIMENOrdering Facility: [facility] Address: [address] [place] [address] Performed By: #### 5 7021-8 ####[facility] LABORATORYCLIA [id number] [address] [place] Neutrophils/100 WBC (Bld) 66.0 % Normal [facility] Comment on above: Order Comment: Speci men Type: BLOOD SPECIMENOrdering Facility: [facility] Address: [address] [place] [address] Performed By: #### 5 7021-8 ####[facility] LABORATORYCLIA [id number] [address] [place] Nucleated RBC (Bld) [#/Vol] 10*3/uL Normal <0.01 [facility] Comment on above: Order Comment: Speci men Type: BLOOD SPECIMENOrdering Facility: [facility] Address: [address] [place] [address] Performed By: #### 5 7021-8 ####[facility] LABORATORYCLIA [id number] [address] [place] Nucleated RBC/100 WBC (Bld) [Ratio] 0.0 /[address] [facility] Comment on above: Order Comment: Speci men Type: BLOOD SPECIMENOrdering Facility: [facility] Address: [address] [place] [address] Performed By: #### 5 7021-8 ####[facility] LABORATORYCLIA [id number] [place] [address] [place] Platelet mean volume (Bld) [Entitic vol] Normal [facility] Comment on above: Order Comment: Speci men Type: BLOOD SPECIMENOrdering Facility: [facility] Address: [address] [place] [address] Result Comment: Unab le to Report. Performed By: #### 5 7021-8 ####[facility] LABORATORYCLIA [id number] [place] [address] [place] Platelets (Bld) [#/Vol] 168 10*3/uL Normal 150-400 [facility] Comment on above: Order Comment: Speci men Type: BLOOD SPECIMENOrdering Facility: [facility] Address: [address] [place] [address] Result Comment: No c lot detected. Performed By: #### 5 7021-8 ####[facility] LABORATORYCLIA [id number] [place] [address] [place] RBC (Bld) [#/Vol] 3.54 10*6/uL Low 3.90-5.20 [facility] Comment on above: Order Comment: Speci men Type: BLOOD SPECIMENOrdering Facility: [facility] Address: [address] [place] [address] Performed By: #### 5 7021-8 ####[facility] LABORATORYCLIA [id number] [address] STATES OF [facility] WBC (Bld) [#/Vol] 5.27 10*3/uL Normal 3.70-11.00 [facility] Comment on above: Order Comment: Speci men Type: BLOOD SPECIMENOrdering Facility: [facility] Address: [address] [place] [address] Performed By: #### 5 7021-8 ####[facility] LABORATORYCLIA [id number] [address] [place] CONSULTon 01-15-[address] [facility] Comprehensive metabolic 2000 panelon 01-15-2025 Albumin [Mass/Vol] 3.5 g/dL Low 3.9-4.9 [facility] Comment on above: Order Comment: Speci men Type: BLOOD SPECIMENOrdering Facility: [facility] Address: [address] [place] [address] Performed By: #### 1 9123-9, 69403-1 ####[facility] LABORATORYCLIA [id number] [address] [place] ALP [Catalytic activity/Vol] 393 U/L High 34-123 [facility] Comment on above: Order Comment: Speci men Type: BLOOD SPECIMENOrdering Facility: [facility] Address: [address] [place] [address] Performed By: #### 1 9123-9, 55356-8 ####[facility] LABORATORYCLIA [id number] [address] [place] ALT With P-5'-P [Catalytic activity/Vol] Normal [facility] Comment on above: Order Comment: Speci men Type: BLOOD SPECIMENOrdering Facility: [facility] Address: [address] [place] [address] Result Comment: Unab le to assay due to interference from hemolysis. Suggest reorder as clinically indicated. Performed By: #### 1 9123-9, 96555-4 ####[facility] LABORATORYCLIA [id number] [address] STATES OF [facility] Anion gap [Moles/Vol] 16 mmol/L High 8-15 [facility] Comment on above: Order Comment: Speci men Type: BLOOD SPECIMENOrdering Facility: [facility] Address: [address] [place] [address] Performed By: #### 1 9123-9, 54693-3 ####[facility] LABORATORYCLIA [id number] [address] STATES OF [facility] AST With P-5'-P [Catalytic activity/Vol] Normal [facility] Comment on above: Order Comment: Speci men Type: BLOOD SPECIMENOrdering Facility: [facility] Address: [address] [place] [address] Result Comment: Unab le to assay due to interference from hemolysis. Suggest reorder as clinically indicated. Performed By: #### 1 9123-9, 90419-8 ####[facility] LABORATORYCLIA [id number] [address] [place] Bilirubin [Mass/Vol] 16.6 mg/dL High 0.2-1.3 [facility] Comment on above: Order Comment: Speci men Type: BLOOD SPECIMENOrdering Facility: [facility] Address: [address] [place] [address] Performed By: #### 1 9123-9, ####[facility] LABORATORYCLIA [id number] [place] [address] [place] Calcium [Mass/Vol] 9.2 mg/dL Normal 8.5-10.2 [facility] Comment on above: Order Comment: Speci men Type: BLOOD SPECIMENOrdering Facility: [facility] Address: [address] [place] [address] Performed By: #### 1 23-9, ####[facility] LABORATORYCLIA [id number] [place] [address] [place] Chloride [Moles/Vol] 102 mmol/L Normal 98-107 [facility] Comment on above: Order Comment: Speci men Type: BLOOD SPECIMENOrdering Facility: [facility] Address: [address] [place] [address] Performed By: #### 1 239, ####[facility] LABORATORYCLIA [id number] [place] [address] [place] CO2 [Moles/Vol] 16 mmol/L Low 22-30 [facility] Comment on above: Order Comment: Speci men Type: BLOOD SPECIMENOrdering Facility: [facility] Address: [address] [place] [address] Performed By: #### 1 23-9, ####[facility] LABORATORYCLIA [id number] [place] [address] [place] Creatinine [Mass/Vol] 0.47 mg/dL Low 0.58-0.96 [facility] Comment on above: Order Comment: Speci men Type: BLOOD SPECIMENOrdering Facility: [facility] Address: [address] [place] [address] Performed By: #### 1 23-9, ####[facility] LABORATORYCLIA [id number] [address] [place] Creatinine and Glomerular filtration rate.predicted panel (S/P/Bld) 94 mL/min/1.73m??? Normal >=60 [facility] Comment on above: Order Comment: Dayron stinson Type: BLOOD SPECIMENOrdering Facility: [facility] Address: [address] [place] [address] Result Comment: Kya mated Glomerular Filtration Rate [...] accurately reflect actual GFR. Performed By: #### 1 9123-9, 39201-6 ####[facility] LABORATORYCLIA [id number] [place] [address] [place] Glucose [Mass/Vol] 225 mg/dL High 74-99 [facility] Comment on above: Order Comment: Dayron stinson Type: BLOOD SPECIMENOrdering Facility: [facility] Address: [address] [place] [address] Result Comment: The [place] Diabetes Association (ADA) provides guidance for cutoff [...] Standards of Medical Care in Diabetes 2016, [place] Diabetes [employer]. Diabetes Care. 2016.39(Suppl 1). Performed By: #### 1 9123-9, 33009-5 ####[facility] LABORATORYCLIA [id number] [place] [address] [place] Potassium [Moles/Vol] Normal [facility] Comment on above: Order Comment: Dayron stinson Type: BLOOD SPECIMENOrdering Facility: [facility] Address: [address] [place] [address] Result Comment: Unab le to assay due to interference from hemolysis. Suggest reorder as clinically indicated. Performed By: #### 1 9123-9, 24707-7 ####[facility] LABORATORYCLIA [id number] [place] [address] [place] Protein [Mass/Vol] Normal [facility] Comment on above: Order Comment: Speci men Type: BLOOD SPECIMENOrdering Facility: [facility] Address: [address] [place] [address] Result Comment: Unab le to assay due to interference from icterus. Performed By: #### 1 9123-9, 98684-4 ####[facility] LABORATORYCLIA [id number] [place] [address] [place] Sodium [Moles/Vol] 134 mmol/L Low 136-144 [facility] Comment on above: Order Comment: Speci men Type: BLOOD SPECIMENOrdering Facility: [facility] Address: [address] [place] [address] Performed By: #### 1 9123-9, 32373-5 ####[facility] LABORATORYCLIA [id number] [place] [address] [place] Urea nitrogen [Mass/Vol] 11 mg/dL Normal - [facility] Comment on above: Order Comment: Speci men Type: BLOOD SPECIMENOrdering Facility: [facility] Address: [address] [place] [address] Performed By: #### 1 9123-9, 09254-9 ####[facility] LABORATORYCLIA [id number] [place] [address] [place] ECG COMPLETEon 01-15-[address] [facility] ERCPon 01-15-[address] [facility] HISTORY PHYSICALon HISTORY PHYSICAL Normal [facility] MISMATCH REPAIR PROTEINS BY IHCon 01-15-2025 AP BIOMARKER DISCLAIMER Normal [facility] Comment on above: Order Comment: Speci men Type: TISSUE SPECIMENOrdering Facility: [facility] Address: [address] [place] [address] Result Comment: Christina burr Developed Test (LDT) Disclaimer:Performance characteristics of immunohistochemical, immunofluorescent, and chromogenic in-situ hybridization tests have been determined by the performing laboratory within [facility]'s [facility] Pathology and Laboratory Medicine Department ([facility], [facility], [facility], [facility], [facility], [facility], or [facility]) in a manner consistent with CLIA requirements. One or more of these tests may not have been cleared or approved by the FDA. RT-PLM is regulated under CLIA as qualified to perform high-complexity testing. These tests are used for clinical purposes. These should not be regarded as investigational or for research. Positive and negative controls stain appropriately. Performed By: #### L [id number] ####[facility] LABIA [id number] [place] [address] [place] AP BLOCK ID A1 [address] [facility] Comment on above: Order Comment: Dayron stinson Type: TISSUE SPECIMENOrdering Facility: [facility] Address: [address] [place] [address] Performed By: #### L [id number] ####[facility] LABCLIA [id number] [place] [address] [place] BIOMARKER INTERPRETATION COMMENT AND REFERENCE RANGE Normal [facility] Comment on above: Order Comment: Dayron stinson Type: TISSUE SPECIMENOrdering Facility: [facility] Address: [address] [place] [address] Result Comment: Inta ct expression of MMR (mismatch repair) proteins by immunohistochemistry is highly correlated with a microsatellite stable result by MSI (microsatellite instability) PCR analysis, and the results from these tests are viewed as clinically equivalent by the FDA. This result excludes at least 90-95% of Morales syndrome. These tests are an imperfect screen because some mutations may not produce loss of immunohistochemical expression. MSI molecular testing can be performed upon request in cases with a high clinical suspicion and appropriate family history.In a phase 2 study of patients with metastatic carcinoma, Meme et al. ([facility] [employer] [facility] 2015;372:7520-14) reported that clinical benefit of pembrolizumab, an anti-programmed 1 (PD-1) immune checkpoint inhibitor, was predicted by the tumor's mismatch repair status; mismatch repair deficient (dMMR) tumors are more responsive to PD-1 blockade than mismatch repair proficient tumors.Pembrolizumab is FDA-approved for treating adult and pediatric patients with unresectable or metastatic solid tumors that display microsatellite instability-high (MSI-H) by PCR assay or dMMR by immunohistochemistry (IHC). The FDA does not distinguish between PCR and IHC-based assays, as these are considered equivalent and complimentary tests.As clinically indicated, and in the appropriate setting of genetic counseling with informed patient consent, further genetic testing may be helpful. For more information or questions about this result, please call the [facility] at [phone]. Performed By: #### L [id number] ####[facility] LABCLIA [id number] [place] [address] [place] BIOMARKER METHOD [facility] Comment on above: Order Comment: Speci men Type: TISSUE SPECIMENOrdering Facility: [facility] Address: [address] [place] [address] Performed By: #### L [id number] ####[facility] LABCLIA [id number] [address] [place] [facility] CASE NUMBER MMR [id number] [facility] Comment on above: Order Comment: Speci men Type: TISSUE SPECIMENOrdering Facility: [facility] Address: [address] [place] [address] Performed By: #### L [id number] ####[facility] LABCLIA [id number] [place] [id number] [place] FIXATIVE Formalin, 10% Neutra l Buffered [facility] Comment on above: Order Comment: Speci men Type: TISSUE SPECIMENOrdering Facility: [facility] Address: [address] [place] [address] Performed By: #### L [id number] ####[facility] LABCLIA [id number] [address] [place] [address] [place] MLH1 IMMUNOHISTOCHEMICAL RESULTS Normal/Intact Nuclear Expression Normal [facility] Comment on above: Order Comment: Speci men Type: TISSUE SPECIMENOrdering Facility: [facility] Address: [address] [place] [address] Performed By: #### L [id number] ####[facility] LABCLIA [id number] [address] [place] [address] [place] MLH1 PROMOTER METHYLATION ASSAY No Normal [facility] Comment on above: Order Comment: Speci men Type: TISSUE SPECIMENOrdering Facility: [facility] Address: [address] [place] [address] Performed By: #### L [id number] ####[facility] LABCLIA [id number] [address], [facility]95 [place] MMR INTERPRETATION Proficient (Microsat elleloy Joseph) Normal [facility] Comment on above: Order Comment: Speci men Type: TISSUE SPECIMENOrdering Facility: [facility] Address: [address] [place] [address] Performed By: #### L [id number] ####[facility] LABCLIA [id number] [place] [address] [place] MSH2 IMMUNOHISTOCHEMICAL RESULTS Normal/Intact Nuclear Expression Normal [facility] Comment on above: Order Comment: Speci men Type: TISSUE SPECIMENOrdering Facility: [facility] Address: [address] [place] [address] Performed By: #### L [id number] ####[facility] LABCLIA [id number] [address], [facility]95 [place] MSH6 IMMUNOHISTOCHEMICAL RESULTS Normal/Intact Nuclear Expression Normal [facility] Comment on above: Order Comment: Speci men Type: TISSUE SPECIMENOrdering Facility: [facility] Address: [address] [place] [address] Performed By: #### L [id number] ####[facility] LABCLIA [id number] [place] [id number] [place] PMS2 IMMUNOHISTOCHEMICAL RESULTS Normal/Intact Nuclear Expression Normal [facility] Comment on above: Order Comment: Dayron shantell Type: TISSUE SPECIMENOrdering Facility: [facility] Address: [address] [place] [address] Performed By: #### L [id number] ####[facility] LABCLIA [id number] [address] TUMOR TYPE MMR Other (See Comment) Normal [facility] Comment on above: Order Comment: Speci men Type: TISSUE SPECIMENOrdering Facility: [facility] Address: [address] [place] [address] Result Comment: Panc reas mass Performed By: #### L [id number] ####[facility] LABCLIA [id number] [address] Magnesium SerPl-mCncon 01-15 Magnesium [Mass/Vol] 2.0 mg/dL Normal 1.7-2.3 [facility] Comment on above: Order Comment: Elinori shantell Type: BLOOD SPECIMENOrdering Facility: [facility] Address: [address] [place] [address] Performed By: #### 1 9123-9, 34799-4 ####[facility] LABORATORYCLIA [id number] [place] [address] [facility] PT panel Coag (PPP)on 2024 INR Coag (PPP) [Relative time] 1.0 {INR} Normal 0.9-1.3 [facility] Comment on above: Order Comment: Elinori shantell Type: BLOOD SPECIMENOrdering Facility: [facility] Address: [address] [place] [address] Result Comment: Aria min K Antagonist (VKA) Therapeutic Range: INR 2 to 3 (Target INR of 2.5)Note: For patients treated with VKA drugs, such as warfarin, the [place] [employer] 2012 Guideline recommends [...] of 3).Ann GH, et al. Chest 2012, 141:7S-47SNishimura RA, et al. [facility] 2017, 70: 252-289 Performed By: #### 3 4528-0 ####[facility] HOSPITALIA [id number] [address] STATES OF [facility] PT Coag (PPP) [Time] 11.3 s Normal 9.7-13.0 [facility] Comment on above: Order Comment: Dayron stinson Type: BLOOD SPECIMENOrdering Facility: [facility] Address: [address] [place] [address] Performed By: #### 3 4528-0 ####[facility] HOSPITALIA [id number] [address] Pathology biopsy report Jimenez (Tiss)on 01-15-[address] [facility] Comment on above: Order Comment: Dayron stinson Type: TISSUE SPECIMENOrdering Facility: [facility] Address: [address] [place] [address] Result Comment: Christina Mckeon Test (LDT) Disclaimer:Performance characteristics of immunohistochemical, immunofluorescent, and chromogenic in-situ hybridization tests have been determined by the performing laboratory within [facility] ([facility], [facility], [facility], [facility], [facility], [facility], or [facility]) in a manner consistent with CLIA requirements. One or more of these tests may not have been cleared or approved by the FDA. RT-PLM is regulated under CLIA as qualified to perform high-complexity testing. These tests are used for clinical purposes. These should not be regarded as investigational or for research. Positive and negative controls stain appropriately. Performed By: #### 6 6121-5 ####[facility] LABORATORYCLIA [id number] [address] CASE REPORT Normal [facility] Comment on above: Order Comment: Speci men Type: TISSUE SPECIMENOrdering Facility: [facility] Address: [address] [place] [address] Result Comment: Surg ical Pathology Report Case: [id number] Provider: Adrián Horta MD Collected: 01/15/2025 12:41 PMOrdering Location: [facility] Received: 01/18/2025 09:31 AMPathologist: Orestes Zarate MDSpecimen: Pancreas, Biopsy, pancreas mass via FNA Performed By: #### 6 6121-5 ####[facility] LABORATORYCLIA [id number] [address] DIAGNOSIS COMMENT The case was reviewe d by Dr. Rachel Gallardo who agrees with the diagnosis. Normal [facility] Comment on above: Order Comment: Speci men Type: TISSUE SPECIMENOrdering Facility: [facility] Address: [address] [place] [address] Performed By: #### 6 6121-5 ####[facility] LABORATORYCLIA [id number] [address] FINAL DIAGNOSIS Normal [facility] Comment on above: Order Comment: Speci men Type: TISSUE SPECIMENOrdering Facility: [facility] Address: [address] [place] [address] Result Comment: Dina golden mass, biopsy:- Adenocarcinoma (see comment). at 1408 EDT Performed By: #### 6 6121-5 ####[facility] LABORATORYCLIA [id number] [address] GROSS DESCRIPTION Normal [facility] Comment on above: Order Comment: Speci men Type: TISSUE SPECIMENOrdering Facility: [facility] Address: [address] [place] [address] Result Comment: Dina golden BiopsyReceived in formalin labeled pancreas massmultiple segments of cylindrical tissue aggregating to 3.0 x 2.0 x 1.0 cm, davalos-red and of a soft consistency. Totally submitted in one cassette.Gross examination performed at [facility], [address] [place], [place] [address]VXV January 18, 2025 12:19 PM Performed By: #### 6 6121-5 ####[facility] LABORATORYCLIA [id number] [place] [address] [place] TARGETED ONCOLOGY PANEL NEXT GENERATION SEQUENCING OTHERon 01-15-2025 TARGETED ONCOLOGY PANEL NEXT GENERATION SEQUENCING OTHER Normal [facility] Comment on above: Order Comment: Speci men Type: TISSUE SPECIMENOrdering Facility: [facility] Address: [address] [place] [address] Result Comment: [facility] Targeted Oncology PanelLaboratory Accession Number: [id number] #: [id number] #: [id number] Type: FFPET% Tumor: 20CASE SUMMARY:KRAS G12D and TP53 Y234N are detected.*Unless otherwise stated, all assay hotspot regions have been tested(see EVALUATED GENES below) and only positive genes are reported.RESULTS:Single Nucleotide Variants/Indels:KRAS\X09\p.Sbb53Nvm\X09\NM_033360.2:c.35G>A\X09 \13.0% VAF, Depth 4153x, Mx6LN92\X09\p.Ubf412Tbw\X09\NM_000546.5:c.700T>A\X09\11.8% VAF, Depth 1953x, Cs8Rsnt Number Gains: None detectedRNA Fusions and Aberrant Transcripts: None detectedVARIANT INTERPRETATIONS:KRAS p.Cms50Ink NM_033360.2:c.35G>AThe clinically significant G12D variant in KRAS was detected in thisspecimen. KRAS edwige-oncogene encodes for a small GTPase familyprotein, K-Mac, which plays gomez role cell proliferation regulation.KRAS hot spot mutations, especially in exon 2, and amplifications arecommon in colorectal, non-small cell lung and pancreatic cancers(PMID: 62410007, 24046211, 87547059).Biomarker Therapy AssociationsResistance: COLORECTAL CANCER: [Cetuximab, Panitumumab, Tucatinib +Trastuzumab]TP53 p.Wbb448Ryr NM_000546.5:c.700T>AThe likely clinically significant Y234N variant in TP53 was detectedin this specimen. TP53 encodes for tumor protein p53, a transcriptionfactor involved in DNA damage pathway, cell cycle arrest and apoptosis(PMID: 41838445). Germline mutations occur in cancer predispositionsyndrome and Li-Fraumeni syndrome (PMID: 78214436). Somatic missenseand loss of function mutations are common in every tumor type and someimpart resistance to chemotherapy (PMID: 9228237).Variants of uncertain significance detected:None detectedRegions with coverage <100x:NoneMETHODOLOGY:Extracted nucleic acid from the specimen, both DNA and RNA, weresubjected to separate targeted amplification reactions, using [employer] primers designed by [employer] ([employer], [place], [place]). Hotspots and selected fusions in generegions listed below were sequenced using [employer] ([place], [place])2x150 paired-end cycle chemistry. A customized bioinformaticsanalytical platform was used for read alignment (Genome [id number]), variant identification and annotation. Single nucleotidevariants (SNVs), insertion, deletion (indels) and copy number gainvariants are detected by DNA sequencing. Select fusions and aberranttranscripts (EGFR vIII and MET exon 14 skipping transcripts) aredetected by RNA sequencing. Variants are classified according toestablished guidelines (1). Reported results include variants ofstrong or potential clinical significance and variants of unclearclinical significance. Benign population polymorphisms are notincluded in the report. If relevant, standard of care therapies forvarious solid tumor types/indications (FDA-approved biomarker orstandard biomarker recommended by a professional society) are providedin the variant interpretation section, as well as markers resistant toFDA-approved drugs. This information is not to be considered arecommendation for therapy.Based on validation, the DNA testing delivered an average of >500xcoverage and >99% of targeted regions showed over 100x coverage. Aminimum coverage depth of 100 reads is required across the entireregion of interest; a list of low coverage areas is included in thereport as applicable. The test demonstrated 100% sensitivity and 100%specificity in identifying SNVs, indels and copy number gains. Thelower limit of detection of this assay is approximately 5% variantallele fraction (VAF) for SNV/indels and 6 copies or greater for copynumber gains. Variants below these thresholds may be reported at thediscretion of the molecular pathology professional staff if thetechnical quality of the sequencing is sufficient at that location andthe call is unequivocal.Based on validation, the RNA fusion testing averaged >150,000 totalreads. The test demonstrated 93% sensitivity and 100% specificity ingene fusion identification compared to NGS sequencing, and 69%sensitivity and 100% specificity compared to FISH of fusion drivers(unknown fusion partner). Overall sensitivity is 78% and accuracy is99%. The lower limit of detection is approximately 1% of totalsequencing reads.LIMITATIONS:Sequence changes outside the analyzed alterations hotspots, includingintronic and noncoding regions, will not be identified by this test.Insertions and deletions larger than 20 and 40 bp, respectively, maynot be identified by this test. Negative results from specimens forwhich the percentage of tumor cells is 10% or less should beinterpreted with caution. Although variant allele fraction is providedas a percentage, this is not a quantitative test. RNA fusionsinvolving alternative partners or breakpoints outside of the targetedregions cannot be detected by this test. This test does notdistinguish between somatic and inherited variants.Tumor heterogeneity, tumor burden, specimen degradation or otherlimitations of the technology may affect the sensitivity and limit ofdetection, either broadly across the regions of interest or forspecific regions and may lead to false negative results.For tumor tissue, fixation in neutral buffered formalin or alcohol ispreferred. Decalcification agents and fixation agents containing heavymetals (e.g., B5) or harsh acid or base components (e.g., Bouin'ssolution) can inhibit PCR reactions. Peripheral blood and bone marrowaspirate specimens should be collected in EDTA.Hotspots, copy number variants and selected fusions evaluated by thisassay can aid in the diagnostic and therapeutic assessment of avariety of tumor types, including non-small cell lung cancer,melanoma, colorectal cancer, prostate cancer, breast cancer,glioblastoma, thyroid cancer and others (2-12). This panel can alsoprovide focused tumor profiling for patients with locallyadvanced/metastatic disease, who are candidates for anti-cancertherapy, to identify uncommon but targetable alterations (13, 14).Clinical and histopathological correlation required.EVALUATED GENES:Gene Transcript Exon(s)ALKT1 NM_005163 3ALK NM_004304 21-25AR NM_000044 6, 8BRAF NM_004333 11, 15CDK4 NM_000075 6ZGHEM7 NM_001904 3, 7-8DDR2 NM_006182 5EGFR NM_005228 3, 7, 12, 15, 18-85CZJJ6 NM_004448 8, 17-61XPVI5 NM_001982 2-3, 6, 8-9ERBB4 NM_005235 18ESR1 NM_000125 8FGFR1 NM_023110 12-14, 16-15GTET1 NM_000141 7-9, 12, 15LJQN3 NM_000142 7, 9, 14, 22FST97 NM_002067 4, 5GNAQ NM_002072 4, 5GNAS NM_080425 8H3-3A NM_002107 2H3-3B NM_005324 2HRAS NM_005343 2,3IDH1 NM_005896 4IDH2 NM_002168 4JAK1 NM_002227 14-16JAK2 NM_004972 14JAK3 NM_000215 11-12, 15KIT NM_000222 8-11, 13, 17KRAS NM_033360 2-0GGB0R2 NM_002755 2-3, 1LHT8Y8 NM_030662 2MET NM_000245 14, 16, 19MTOR NM_004958 30, 39-40, 43, 47, 53NRAS NM_002524 2-4PDGFRA NM_006206 12, 14, 70VLN2ET NM_006218 2, 5-6, 8, 10, 14, 19, 21RAF1 NM_002880 7, 12RET NM_020975 11, 13, 15-16ROS1 NM_002944 36, 38SMO NM_005631 4, 6, 8-9TERT NM_198253 DuuhhxiqUM26 NM_000546 5, 7, 8*Only hotspots within designated exons are covered, full exons are notsequenced.Genes reported for copy number gains: ALK, AR BRAF, CCND1, CDK4, CDK6,EGFR, ERBB2, FGFR1, FGFR2, FGFR3, FGFR4, KIT, KRAS, MET, MYC, MYCN,PDGFRA, CFU1JETbbuszk detected in RNA:Gene Detected FusionsABL1 EML1::WUF5CCX4 MAGI3::PUY0EFL A2M::ALK, ACTG2::ALK, ALK::PTPN3, ATIC::ALK, S2pbj89::ALK, CARS::ALK, CLIP4::ALK, CLTC::ALK, DCTN1::ALK, EML4::ALK, SEC4MOQ2::ALK, HIP1::ALK, KIF5B::ALK, KLC1::ALK, MEMO1::ALK, NCOA1::ALK, NZFHD7D::ALK, RANBBP2::ALK, BEK94Q1_ZXV15N::ALK, SMEK2::ALK, STRN::ALK, TFG::ALK, TPM1::ALK, TPM3::ALK, TPM4::ALK, TPR::ALK, TRAF1::ALK, VCL::ALKAXL KATERIN::MBIPBRAF AGTRAP:BRAF, AKAP9::BRAF, CDC27::BRAF, TBF483N::BRAF, FCHSD1::BRAF, BMIU4418::BRAF, PAPSS1::BRAF, PZY28B2::BRAF, SND1::BRAF, UHI1PL0::BRAF, TRIM24::BRAFEGFR EGFR vIII transcriptERBB2 WIPF2::ZAZD1RWM ELD98O7:ERG, TMPRSS2:ERGFGFR1 BAG4::FGFR1, ERLIN2::FGFR1, FGFR1::GTSU7DYMZ6 FGFR2::AFF3, FGFR2::BICC1, FGFR2::CASP7, FGFR2::CIT, FGFR2::YMJC3061_AGLV7, FGFR2::MGEA5, FGFR2::OFD1, FGFR2::TACC1, ZUI78G7::RFLG7BBNH5 FGFR3::AES, FGFR3::ODBMF1F3, FGFR3::ELAVL3, FGFR3::KDPG5ZLI MET Exon 14 Skipping, IXQSG2B5::MET, I4ujz03::MET, CAPZA2::MET, OXR1::MET, TFG::MET, TPR::MET, PTPRZ1::METNTRK1 BCAN::NTRK1, CD74::NTRK1, DALTON::NTRK1, KYY6UC9::NTRK1, LMNA::NTRK1, MPRIP::NTRK1, NFASC::NTRK1, NTRK1::CFZY1S1, BWQ073::NTRK1, SQSTM1::NTRK1, SSBP2::NTRK1, TFG::NTRK1, TPM3::NTRK1, TPR::DSGC5ILMY8 AFAP1::NTRK2, AGBL4::NTRK2, NACC2::NTRK2, QKI::NTRK2, SQSTM1::NTRK2, TRIM24::NTRK2, VCL::SBEP2LEQF9 BTBD1::NTRK3, COX5A::NTRK3, ETV6::MKRX4XVOLHC SCAF11::PDGFRAPPARG PAX8::PPARGRAF1 G4IBSW0::RAF1, ESRP1::VKW6NBQH I95leq35::RELARET ACBD5::RET, AFAP1::RET, AKAP13::RET, CCDC6::RET, CUX1::RET, ERC1::RET, FKBP15::RET, GOLGA5::RET, HOOK3::RET, ODRS9589::RET, KIF5B::RET, KTN1::RET, NCOA4::RET, PCM1::RET, FEDYX0K::RET, RUFY2::RET, MCFBC8F::RET, LDF7ZS5::RET, TRIM24::RET, TRIM27::RET, TRIM33::RETROS1 CCDC6:ROS1, CD74::ROS1, CEP85L::ROS1, CLIP1::ROS1, CLTC::ROS1, ERC1::ROS1, EZR::ROS1, GOPC::ROS1, HLA_A::ROS1, KDELR2::ROS1, BSBX6555::ROS1, LRIG3::ROS1, MSN::ROS1, MYO5A::ROS1, PPFIBP1::ROS1, PWWP2A::ROS1, SDC4::ROS1, KXS56B6::ROS1, TFG::ROS1, TPM3::ROS1, ZCCHC8::IQG4IBLYQL8 TMPRSS2::ERG, TMPRSS2::ETV1, TMPRSS2::ETV4, TMPRSS2::VPG0PIGFLFKMFZ:1) Muriel MM, et al. Standards and Guidelines for the Interpretation andReporting of Sequence Variants in Cancer: A Joint ConsensusRecommendation of the Association for Molecular Pathology, [facility] of Clinical Oncology, and College of [place] Pathologists. JMol Diagn. 2017 Oct;19(1):4-23. doi: 10.1016/j.jmoldx.2016.10.002.PMID: 66401723; PMCID: PAU5732596.2) Sourav C, Lillian SA, Lia AM. Recurrent gene fusions inprostate cancer. Kim Rev Cancer. 2008 Apr;8(7):497-511. doi:10.1038/zql0007. Epub 2007Apr 15. PMID: 93329872; PMCID: MWM5857085.3) Raquel SC, Rik LA. The genomic landscape of prostate cancer.Front Endocrinol ([facility]). 2011March 12;3:69. doi:10.3389/fendo.2012.58956. PMID: 12550166; WWX0144596.4) Juliocesar C, et al. Breast Cancer Genomics: Primary and Most CommonMetastases. Cancers ([place]). 2021Apr 17;14(13):3046. doi:10.3390/gmaoifi43395980. PMID: 14085054; PMCID: TUT5942710.5) Gerardo R, Mk HEARTJ, CJ. Senior [employer] Soa Developer Oncogenes but Not as We KnowThem: Targetable Fusion Genes in Breast Cancer. Cancer Discov. 2018Dec;8(3):272-275. doi: 10.1158/4138-3877.CD-18-0091. PMID: 09767790;PMCID: ZEI9166433.6) Kaz A, Tyrone J, Josh JW, Adama N, Hao T, Herbie CS. The GenomicLandscape of Thyroid Cancer Tumourigenesis and Implications forImmunotherapy. Cells. 2020February 25;10(5):1082. doi:10.3390/hfkwu77886320. PMID: 73652949; PMCID: ORM1030365.7) Vivienne SALCIDO, et al. Molecular Biomarkers for the Evaluation ofColorectal Cancer: Guideline From the [place] Society for ClinicalPathology, College of [place] Pathologists, Association for MolecularPathology, and the [place] Society of Clinical Oncology. J ClinOncol. 2017 February 25;35(13):4113-6182. doi: 10.1200/JCO.2016.71.9807.Epub 2016Dec 03. PMID: 86444171.8) Polina MCKEON, et al. Updated Molecular Testing Guideline for theSelection of Lung Cancer Patients for Treatment With Targeted TyrosineKinase Inhibitors: Guideline From the College of AmericanPathologists, the International Association for the Study of LungCancer, and the Association for Molecular Pathology. Arch Pathol LabMed. 2018 Dec;142(3):321-346. doi: 10.5858/arpa.4063-6843-CC. Qewv3083 Nov 18. PMID: 69873554.9) Cancer Genome [employer]. Comprehensive genomiccharacterization defines human glioblastoma genes and core pathways.Nature. 2007Aug 19;455(3505):1061-8. doi: 10.1038/thxrob17097. Jbnq4998 Jul 01. Erratum in: Nature. 2012Dec 25;494(1334):506. PMID:45175777; PMCID: QNB1095745.10) Liana MY, Maria D M. Glioblastoma Genomics: A Very ComplicatedStory. In: De Rani S, managing editor. Glioblastoma [Internet].[place] ([place]): [employer]; 2016Jul 24. Chapter 1. PMID:55518024.11) Kavitha S, Snehal N, Padmini H. Melanoma genomics: a vaatm-xv-tuc-artreview of practical clinical applications. Br J Dermatol. ug;185(2):272-281. doi: 10.1111/bjd.13529. Epub 2020Apr 02. PMID:82947694.12) Brenton L, Itz MOMIN. An update on molecular genetics ofgastrointestinal stromal tumours. J Clin Pathol. 2006Jun;59(6):557-63. doi: 10.1136/jcp.2004.803944. PMID: 42268267; PMCID:EHW6012949.13) Julio C DE LA ROSA, Kavita M, Denzel LINGB, Sallie TL, Vandana LL. Molecularprofiling for precision cancer therapies. Genome Med. 2019;12(1):8. doi: 10.1186/r96367-872-4037-0. PMID: 39412677; PMCID:NMG9609491.14) Brian Magaña et al. Somatic Genomic Testing in Patients WithMetastatic or Advanced Cancer: ASCO Provisional Clinical Opinion. JClin Oncol. 2021Feb 04;40(11):5252-3351. doi: 10.1200/JCO.21.68743.Epub 2021Dec 14. Erratum in: J Clin Oncol. 2021Apr 16;40(18):2068.PMID: 96368117.15) Brian Magaña et al. OncoKB: OncoKB: A Precision OncologyKnowledge Base. JCO Precis Oncol. 2017 Apr;2017:PO.17.91213. doi:10.1200/PO.17.83647. Epub 2016March 12. PMID: 31551085; PMCID:WCW0410977.DISCLAIMER:This test was developed and its performance characteristics determinedby [facility]'s Pathology and Laboratory Medicine Department. Ithas not been cleared or approved by the FDA. [facility]'s[facility] is regulated under CLIAas certified to perform high-complexity testing. This test is used forclinical purposes. It should not be regarded as investigational or forresearch.Test performed at [facility], [facility] [place] [address]. CLIA Number: [id number] performed by Lianet Yanez MD, PhD Performed By: #### T OPTO ####CLARITY ILLUMINA LIMSCLIA [id number] [place] [address] [place] Tiss Path Bx reporton 2024 FINAL PERFORMING LAB Normal [facility] Comment on above: Order Comment: Speci men Type: TISSUE SPECIMENOrdering Facility: [facility] Address: [address] [place] [address] Result Comment: Diag nostic interpretation performed at: [facility], [address] [facility] [address] CLIA# [id number] Director: Keenan Multani MD Performed By: #### 6 6121-5 ####[facility] LABORATORYCLIA [id number] [place] [address] [place] Result Comment: Diag nostic interpretation performed at: [facility], [address] [facility], [address] [address] CLIA# [id number] Director: Sunil Garcia MDElectronically signed out by: SILAS GARCIA MD, PhD Performed By: #### L [id number] ####[facility] LABCLIA [id number] [address] [address] [place] XR ERCP READ ONLYon 01-16-20 XR ERCP READ ONLY Normal [facility] Bedside Glucoseon 01-14-2025 FINGERSTICK GLU 417 mg/dL High 74-106 [facility] Comment on above: Result Comment: JILLIAN GEMENT OF PATIENT CARE PER NURSING PROTOCOL Performed By: #### L 501.6710, L3100.5017, L500.4050, L100.0100, L504.2610, L101.9900 #### [facility] [address] [facility] [address] FINGERSTICK GLU 282 mg/dL High 74-106 [facility] Comment on above: Result Comment: JILLIAN GEMENT OF PATIENT CARE PER NURSING PROTOCOL Performed By: #### L 501.2450 #### [facility] [address] [place], [address] FINGERSTICK GLU 284 mg/dL High 74-106 [facility] Comment on above: Result Comment: JILLIAN GEMENT OF PATIENT CARE PER NURSING PROTOCOL Performed By: #### L 501.6710, L3100.5017, L500.4050, L100.0100, L504.2610, L101.9900 #### [facility] [address] [place], [address] FINGERSTICK GLU 241 mg/dL [address] Comment on above: Result Comment: JILLIAN GEMENT OF PATIENT CARE PER NURSING PROTOCOL Performed By: #### L 501.6710, L3100.5017, L500.4050, L100.0100, L504.2610, L101.9900 #### [facility] [address] [place], [address] [facility] deOrdered By: Jose Wu on 01-14-2025 Bedside Glucose ([facility] [place] [place] Panel) 417 mg/dL [address] Comment on above: MANAGEMENT OF PATIEN T CARE PER NURSING PROTOCOL Bedside Glucoseon 01-13-2025 FINGERSTICK GLU 314 mg/dL [address] Comment on above: Result Comment: JILLIAN GEMENT OF PATIENT CARE PER NURSING PROTOCOL Performed By: #### L 501.6710, L3100.5017, L500.4050, L100.0100, L504.2610, L101.9900 #### [facility] [address] [place], [address] FINGERSTICK GLU 356 mg/dL High [address] [place] [address] Comment on above: Result Comment: JILLIAN GEMENT OF PATIENT CARE PER NURSING PROTOCOL Performed By: #### L 501.2450 #### [facility] [address] [place], [address] FINGERSTICK GLU 302 mg/dL [address] Comment on above: Result Comment: JILLIAN GEMENT OF PATIENT CARE PER NURSING PROTOCOL Performed By: #### L 501.6710, L3100.5017, L500.4050, L100.0100, L504.2610, L101.9900 #### [facility] [address] [place], [address] FINGERSTICK GLU 278 mg/dL High 74-106 [facility] Comment on above: Result Comment: JILLIAN MOFFETT OF PATIENT CARE PER NURSING PROTOCOL Performed By: #### L 501.6710, L3100.5017, L500.4050, L100.0100, L504.2610, L101.9900 #### [facility] [address] [facility] [place], [address] 12 Lead EKGon 01-12-2025 12 Lead EKG [facility] Cardiovascular Services [address] [place] [address] 12 Lead EKG 01/12/25 0442 MR#: [id number] Acct: [id number] Name: TELMA TINEO Rep #: [id number] : 1940 84 From: Zachary Sarabia MD Attending Dr: Dr. Jose Wu, DO Status: A DM IN Ordering Dr: Babatunde Worthington MD Date: 01/12/25 [place] [facility] [place]: F H Admitted: 01/10/25 Test Reason [...] normal variant ( R in aVL , [place] product ) ST T wave abnormality, consider anterior ischemia Abnormal ECG When compared with ECG of 25-Jun-2024 15:29, QT has lengthened Confirmed by ZACHARY SARABIA MD ([id number]), managing editor CARLOS HARRIS ([id number]) on 01/12/2025 8:23:00 AM Referred By: DENNIS Confirmed By: ZACHARY SARABIA MD 01/12/25 0823 Date Zachary Sarabia MD CC: Dr. Babatunde Worthington MD; Dr. Jose Wu DO; Dr. Henok Martinez MD Signed Normal [facility] Bedside Glucoseon 01-12-2025 FINGERSTICK GLU 397 mg/dL High 74-106 [facility] Comment on above: Result Comment: JILLIAN GEMENT OF PATIENT CARE PER NURSING PROTOCOL Performed By: #### L 501.6710, L3100.5017, L500.4050, L100.0100, L504.2610, L101.9900 #### [facility] [address] [place], [address] FINGERSTICK GLU 214 mg/dL High 74-106 [facility] Comment on above: Result Comment: JILLIAN GEMENT OF PATIENT CARE PER NURSING PROTOCOL Performed By: #### L 501.2450 #### [facility] [address] [place], [address] FINGERSTICK GLU 258 mg/dL High 74-106 [facility] Comment on above: Result Comment: JILLIAN GEMENT OF PATIENT CARE PER NURSING PROTOCOL Performed By: #### L 501.6710, L3100.5017, L500.4050, L100.0100, L504.2610, L101.9900 #### [facility] [address] [place], [address] CA 19-9 Serial Monitoron CA 19-9 355 U/mL High 0-35 [facility] Comment on above: Result Comment: [employer] [employer] Electrochemiluminescence Immunoassay (ECLIA) Values obtained with different assay methods or kits cannot be used interchangeably. Results cannot be interpreted as absolute evidence of the presence or absence of malignant disease. Performed at: [address] [id number] Production Maintenance Mechanic: Barry Hart PhD, Phone: [phone] Performed By: #### L 501.6710, L3100.5017, L500.4050, L100.0100, L504.2610, L101.9900 #### [facility] [address] [place], [address] ERCP Biliary/Pancreason 12-26 ERCP Biliary/Pancreas [facility] Imaging Services [address] [place] [address] ERCP Biliary/Pancreas MR#: [id number] Acct: [id number] Name: TELMA TINEO Rep #: [id number] : 1940 F 84 From: Raj farley MD PCP: Dr. Henok Martinez MD Status: ADM IN Study: ERCP Biliary/Pancreas Date of Exam: 01/12/25 Exam# [id number] Ordering Dr: Mohit Brown DO PROCEDURE: ERCP BILIARY/PANCREAS 01/12/2025 REASON FOR EXAM: PAIN. ERCP WITH SPY? TECHNIQUE: Fluoroscopic services provided for ERCP. Fluoroscopic time: 110.7 seconds 22.5 mGy 3 images were submitted. COMPARISON: None. FINDINGS: The galvanizer performed the ERCP. Fluoroscopic imaging provided. RAD/ERCP Biliary/Pancreas IMPRESSION: Fluoroscopic services provided for ERCP. Reading Location: [place] [address] CC: Dr. Henok Martinez MD; Mohit Brown DO Program Engagement Director: Signed Normal [facility] ERCP Reporton 01-12-2025 ERCP Report [facility] Medical Records Department [address] [place] [address] ERCP Report MR#: [id number] Acct: [id number] Name: TELMA TINEO Rep #: [id number] : 1940 84 From: Mohit Brown DO [...] hour 8 minutes 42 seconds Findings: The cable television line technician film was normal. The bile duct could not be cannulated with the short-nosed traction sphincterotome. No biopsies or other specimens were collected for this exam. Impression: - No specimens collected. Procedure Code(s): --- Professional --- 51912, Esophagogastroduodenoscopy , flexible, transoral; diagnostic, including collection of specimen(s) by brushing or washing, when performed (separate procedure) CPT copyright 2021 [employer]. All rights reserved. The codes documented in this report are preliminary and upon excavator operator review may be revised to meet current compliance requirements. Mohit Brown 01/12/2025 1:41:52 PM This report has been signed electronically. Number of Addenda: 0 Note Initiated On: 01/12/2025 11:51 AM 01/12/25 1342 Date Mohit Brown DO Cosigner Signature: Date (if indicated) CC: Dr. Henok Martinez MD; Mohit Brown Date Dictated: 01/12/25 1151 Date Transcribed: Program Engagement Director: RF Signed Normal [facility] Electrocardiogram reportOrde red By: Zachary Sarabia on 01-12-2025 EKG study [facility] Cardiovascular Services [address] [place] [address] 12 Lead EKG 01/12/25 0442 MR#: [id number] Acct: [id number] Name: TELMA TINEO Rep #:[id number] : 1940 84 From: Zachary Sarabia MD Attending Dr: Dr. Jose Wu DO Status: ADM IN Ordering Dr: Babatunde Worthington MD Date: 01/12/25 [place] [facility] [place] Sex: F H Admitted: 01/10/25 Test Reason [...] normal variant ( R in aVL , [place] product ) ST & T wave abnormality, consider anterior ischemia Abnormal ECG When compared with ECG of 25-Jun-2024 15:29, QT has lengthened Confirmed by CORNELL HELMS, ZACHARY ([id number]), managing editor CARLOS HARRIS ([id number]) on 01/12/2025 8:23:00 AM Referred By: DENNIS Confirmed By: ZACHARY SARABIA MD 01/12/2523 Date _ Zachary Sarabia MD CC: Dr. Babatunde Worthington MD; Dr. Jose Wu DO; Dr. Henok Martinez MD ~ Signed [facility] Work Phone: [email or web address] 01-12-2025 MR/POSTOP.[facility] Medical Records Department [address] [place] [address] Anesthesia Postop Eval I 01/12/25 134 MR#: [id number] Acct: [id number] Name: TELMA TINEO Rep #: [id number] : 1940 84 From: Jr Kamara CRNA PCP: Dr. Henok Martinez MD Status:ADM IN Y Race: H Location: [place] [address] Anesthesia: Postop Eval I Current Vital Signs Temperature: 97.7 F Pulse Rate: 81 Blood Pressure: 143/77 Respiratory Rate: 16 Pulse Ox: 96 Assessment Airway patent: Yes Spontaneous unlabored respirations: Yes nausea: No Vomiting: No Anesthesia Complication: No Fluid Hydration Crystalloid volume administer (ml): 1,000 Total IV fluid infused: 1,000 Progress Note Anesthesia document: Postop Eval 1 completed: Yes 01/12/251347 Date Jr Kamara PUTTYING AND CALKING SUPERVISOR Cosigner Signature: Date CC: Signed [facility] MR/EYCGEQYW1je 01-12-2025 MR/POSTOPAN2 [facility] Medical Records Department [address] [facility] [place] [address] Anesthesia Postop Eval II 01/12/25 1408 MR#: [id number] Acct: [id number] Name: TELMA TINEO Rep #: [id number] : 1940 84 From: José Escobar MD PCP: Dr. Henok Martinez MD Status:ADM IN Y Race: H [place] [facility] [id number] Anesthesia Postop Eval I Sum Postop Eval Completion status Anesthesia document: Postop Eval 1 completed: Yes Anesthesia Postop Eval I Summary Anesthesia Postop Eval I Summary: Anesthesia Postop Eval I: Assessment Summary Airway patent Yes 01/12/25 13:48 PUTTYING AND CALKING SUPERVISOR.TNES Spontaneous unlabored Yes 01/12/25 13:48 PUTTYING AND CALKING SUPERVISOR.TNES respirations Mental status nausea No 01/12/25 13:48 PUTTYING AND CALKING SUPERVISOR.TNES Vomiting No 01/12/25 13:48 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 Postop Eval I: Fluid Summary Crystalloid volume administer 1,000 01/12/25 13:48 PUTTYING AND CALKING SUPERVISOR.TNES (ml) Colloids volume administered ( ml) Blood Product volume administered (ml) Total IV fluid infused 1,000 01/12/25 13:48 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 Postop Eval I: Summary Notes Anesthesia Complication No 01/12/25 13:48 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 Complication Comment: Post-operative progress note Anesthesia: Postop Eval II Evaluation Mental status: Awake Pain Level: 0 nausea: No Vomiting: No Complications Anesthesia Complication: No 01/12/25 1408 Date José Escobar MD Cosigner Signature: Date CC: Signed Normal [facility] Absolute neutrophil countOrd ered By: Keenan Celeste on 01-11-2025 Neutrophils (Bld) [#/Vol] 3.1 10*3/uL 2.0-7.7 [facility] Anion gap in Serum or Plasma Ordered By: Keenan Celeste on 01-11-2025 Anion gap [Moles/Vol] 13 mmol/L 5-15 [facility] BUN/creatinine ratioOrdered By: Keenan Celeste on 01-11-2025 Urea nitrogen/Creatinine [Mass ratio] 10.8 mg/mg 10-20 [facility] Comment on above: Previous reported re sult: 10.0 RATIOEdited by: BRIDGER on 01/11/25:1445 AMENDED REPORT 01/11/25 144 BUN/CRE previously reported as: 10.0 RATIO Basophil percentageOrdered B y: Keenan Celeste on 01-11-2025 Basophils/100 WBC (Bld) 0.6 % 0-1 [facility] Bedside Glucoseon 01-11-2025 FINGERSTICK GLU 411 mg/dL High 74-106 [facility] Comment on above: Result Comment: JILLIAN GEMENT OF PATIENT CARE PER NURSING PROTOCOL Performed By: #### L 501.6710, L3100.5017, L500.4050, L100.0100, L504.2610, L101.9900 #### [facility] [address] [place], [address] FINGERSTICK GLU 414 mg/dL High 74-106 [facility] Comment on above: Result Comment: JILLIAN GEMENT OF PATIENT CARE PER NURSING PROTOCOL Performed By: #### L 501.6710, L3100.5017, L500.4050, L100.0100, L504.2610, L101.9900 #### [facility] [address] [place], [address] FINGERSTICK GLU 269 mg/dL High 74-106 [facility] Comment on above: Result Comment: JILLIAN GEMENT OF PATIENT CARE PER NURSING PROTOCOL Performed By: #### L 501.6710, L3100.5017, L500.4050, L100.0100, L504.2610, L101.9900 #### [facility] [address] [place], [address] Bilirubin, totalOrdered By: Keenan Celeste on 01-11-2025 Bilirubin [Mass/Vol] 10.20 mg/dL High 0.00-1.30 [facility] Comment on above: Previous reported re sult: 10.00 mg/dLEdited by: BRIDGER on 01/11/25:1445 AMENDED REPORT 01/11/25 1445 T BILI previously reported as: 10.00 H mg/dL CBC W/Diff, Automatedon 12-26 Absolute Lymph 1.14 X10 3/uL Normal 0.83-4.51 [facility] Comment on above: Performed By: #### L 501.6710, L3100.5017, L500.4050, L100.0100, L504.2610, L101.9900 #### [facility] [address] [place], [address] Absolute Neut 3.1 X10 3/uL Normal 2.0-7.7 [facility] Comment on above: Performed By: #### L 501.6710, L3100.5017, L500.4050, L100.0100, L504.2610, L101.9900 #### [facility] [address] [place], [address] Basophils/100 WBC (Bld) 0.6 % Normal 0-1 [facility] Comment on above: Performed By: #### L 501.6710, L3100.5017, L500.4050, L100.0100, L504.2610, L101.9900 #### [facility] [address] [place], [address] Eosinophils/100 WBC (Bld) 2.4 % Normal 0-5 [facility] Comment on above: Performed By: #### L 501.6710, L3100.5017, L500.4050, L100.0100, L504.2610, L101.9900 #### [facility] [address] [place] [id number] Erythrocyte distribution width (RBC) [Ratio] 15.1 % High 11.6-14.6 [facility] Comment on above: Performed By: #### L 501.6710, L3100.5017, L500.4050, L100.0100, L504.2610, L101.9900 #### [facility] [address] [place], [address] Hematocrit (Bld) [Volume fraction] 34.2 % Low 37-47 [facility] Comment on above: Performed By: #### L 501.6710, L3100.5017, L500.4050, L100.0100, L504.2610, L101.9900 #### [facility] [address] [facility] [place], [address] Hemoglobin (Bld) [Mass/Vol] 11.7 g/dL Low 12.0-15.0 [facility] Comment on above: Performed By: #### L 501.6710, L3100.5017, L500.4050, L100.0100, L504.2610, L101.9900 #### [facility] [address] [place], [address] IG% 0.400 Normal 0.0-0.9 [facility] Comment on above: Result Comment: IG% - Immature Granulocytes (promyelocytes, myelocytes and metamyelocytes) > 1% indicates that a LEFT SHIFT is Present. Performed By: #### L 501.6710, L3100.5017, L500.4050, L100.0100, L504.2610, L101.9900 #### [facility] [address] [place], [address] Lymphocytes/100 WBC (Bld) 22.9 % Normal 19-41 [facility] Comment on above: Performed By: #### L 501.6710, L3100.5017, L500.4050, L100.0100, L504.2610, L101.9900 #### [facility] [address] [place], [address] MCH (RBC) [Entitic mass] 29.7 pg Normal 27.0-32.0 [facility] Comment on above: Performed By: #### L 501.6710, L3100.5017, L500.4050, L100.0100, L504.2610, L101.9900 #### [facility] [address] [place], [address] MCHC (RBC) [Mass/Vol] 34.2 g/dL Normal 32-36 [facility] Comment on above: Performed By: #### L 501.6710, L3100.5017, L500.4050, L100.0100, L504.2610, L101.9900 #### [facility] [address] [place], [address] MCV (RBC) [Entitic vol] 86.8 fL Normal 81-99 [facility] Comment on above: Performed By: #### L 501.6710, L3100.5017, L500.4050, L100.0100, L504.2610, L101.9900 #### [facility] [address] [place], [address] Monocytes/100 WBC (Bld) 11.6 % High 0-10 [facility] Comment on above: Performed By: #### L 501.6710, L3100.5017, L500.4050, L100.0100, L504.2610, L101.9900 #### [facility] [address] [place], [address] Neutrophils/100 WBC (Bld) 62.1 % Normal 47-70 [facility] Comment on above: Performed By: #### L 501.6710, L3100.5017, L500.4050, L100.0100, L504.2610, L101.9900 #### [facility] [address] [place], [address] Nucleated RBC (Bld) [#/Vol] 0 10*3/uL Normal 0-5 [facility] Comment on above: Performed By: #### L 501.6710, L3100.5017, L500.4050, L100.0100, L504.2610, L101.9900 #### [facility] [address] [place], [address] Platelet mean volume (Bld) [Entitic vol] 13.7 fL High 6.2-12.0 [facility] Comment on above: Performed By: #### L 501.6710, L3100.5017, L500.4050, L100.0100, L504.2610, L101.9900 #### [facility] [address] [place], [address] Platelets (Bld) [#/Vol] 169 10*3/uL Normal 150-450 [facility] Comment on above: Performed By: #### L 501.6710, L3100.5017, L500.4050, L100.0100, L504.2610, L101.9900 #### [facility] [address] [place], [address] RBC (Bld) [#/Vol] 3.94 10*6/uL Low 4.2-5.4 [facility] Comment on above: Performed By: #### L 501.6710, L3100.5017, L500.4050, L100.0100, L504.2610, L101.9900 #### [facility] [address] [place], [address] RDW SD 47.8 fl High 35.1-43.9 [facility] Comment on above: Performed By: #### L 501.6710, L3100.5017, L500.4050, L100.0100, L504.2610, L101.9900 #### [facility] [address] [place], [address] WBC (Bld) [#/Vol] 5.0 10*3/uL Normal 4.4-11.0 [facility] Comment on above: Performed By: #### L 501.6710, L3100.5017, L500.4050, L100.0100, L504.2610, L101.9900 #### [facility] [address] [place], [address] Carbon dioxide, total [Moles /volume] in Central venous bloodOrdered By: Keenan Celeste on 01-11-2025 CO2 [Moles/Vol] 20.0 mmol/L Low 21.0-32.0 [facility] Comment on above: Previous reported re sult: 19.6 mmol/LEdited by: AUTOINS on 01/11/25:1445 AMENDED REPORT 01/11/25 1445 CO2 previously reported as: 19.6 L mmol/L Chloride assayOrdered By: Adilson Celeste on 01-11-2025 Chloride [Moles/Vol] 103 mmol/L 98-108 [facility] Comment on above: Previous reported re sult: 104 mmol/LEdited by: AUTOINS on 01/11/25:1445 AMENDED REPORT 01/11/25 1445 CL previously reported as: 104 mmol/L Comprehensive Metabolic Prof ilon 01-11-2025 Albumin [Mass/Vol] 3.9 g/dL Normal 3.4-4.8 [facility] Comment on above: Result Comment: AMENDED REPORT 01/11/25 1445 ALB previously reported as: 3.7 g/dL Performed By: #### L 501.6710, L3100.5017, L500.4050, L100.0100, L504.2610, L101.9900 #### [facility] [address] [place], [address] Albumin/Globulin [Mass ratio] 1.8 {ratio} Normal 0.9-2.4 [facility] Comment on above: Result Comment: AMENDED REPORT 01/11/251444 A/G previously reported as: 1.5 RATIO Performed By: #### L 501.6710, L3100.5017, L500.4050, L100.0100, L504.2610, L101.9900 #### [facility] [address] [place], [address] ALK PHOS 366 U/L High 35-104 [facility] Comment on above: Result Comment: AMENDED REPORT 01/11/251444 ALK P previously reported as: 349 H U/L Performed By: #### L 501.6710, L3100.5017, L500.4050, L100.0100, L504.2610, L101.9900 #### [facility] [address] [place], [address] ALT [Catalytic activity/Vol] 343 U/L High <=34 [facility] Comment on above: Result Comment: AMENDED REPORT 01/11/251444 ALT previously reported as: 333 H U/L Performed By: #### L 501.6710, L3100.5017, L500.4050, L100.0100, L504.2610, L101.9900 #### [facility] [address] [place], [address] AST [Catalytic activity/Vol] 247 U/L High <=31 [facility] Comment on above: Result Comment: AMENDED REPORT 01/11/251444 AST previously reported as: 240 H U/L Performed By: #### L 501.6710, L3100.5017, L500.4050, L100.0100, L504.2610, L101.9900 #### [facility] [address] [place], [address] Bilirubin [Mass/Vol] 10.20 mg/dL High 0.00-1.30 [facility] Comment on above: Result Comment: AMENDED REPORT 01/11/251444 T BILI previously reported as: 10.00 H mg/dL Performed By: #### L 501.6710, L3100.5017, L500.4050, L100.0100, L504.2610, L101.9900 #### [facility] [address] [place], [address] BUN/CRE 10.8 RATIO Normal 10-20 [facility] Comment on above: Result Comment: AMENDED REPORT 01/11/251444 BUN/CRE previously reported as: 10.0 RATIO Performed By: #### L 501.6710, L3100.5017, L500.4050, L100.0100, L504.2610, L101.9900 #### [facility] [address] [place], [address] Calcium [Mass/Vol] 9.5 mg/dL Normal 7.6-11.0 [facility] Comment on above: Result Comment: AMENDED REPORT 01/11/251444 CA previously reported as: 9.7 mg/dL Performed By: #### L 501.6710, L3100.5017, L500.4050, L100.0100, L504.2610, L101.9900 #### [facility] [address] [place], [address] Chloride [Moles/Vol] 103 mmol/L Normal 98-108 [facility] Comment on above: Result Comment: AMENDED REPORT 01/11/251444 CL previously reported as: 104 mmol/L Performed By: #### L 501.6710, L3100.5017, L500.4050, L100.0100, L504.2610, L101.9900 #### [facility] [address] [place], [address] CO2 [Moles/Vol] 20.0 mmol/L Low 21.0-32.0 [facility] Comment on above: Result Comment: AMENDED REPORT 01/11/251444 CO2 previously reported as: 19.6 L mmol/L Performed By: #### L 501.6710, L3100.5017, L500.4050, L100.0100, L504.2610, L101.9900 #### [facility] [address] [place], [address] Creatinine [Mass/Vol] 0.74 mg/dL Normal 0.70-1.20 [facility] Comment on above: Result Comment: Icte cristina present, Results may be affected. AMENDED REPORT 01/11/251444 CREAT,SERUM previously reported as: 0.73 mg/dL Icterus present, Results may be affected. Performed By: #### L 501.6710, L3100.5017, L500.4050, L100.0100, L504.2610, L101.9900 #### [facility] [address] [place], [address] ECRCL 44.71 ml/min Low 50-250 [facility] Comment on above: Performed By: #### L 501.6710, L3100.5017, L500.4050, L100.0100, L504.2610, L101.9900 #### [facility] [address] [place], [address] GAP 13 Normal 5-15 [facility] Comment on above: Performed By: #### L 501.6710, L3100.5017, L500.4050, L100.0100, L504.2610, L101.9900 #### [facility] [address] [place], [address] Globulin (S) [Mass/Vol] 2.1 g/dL Low 2.2-4.2 [facility] Comment on above: Result Comment: AMENDED REPORT 01/11/251444 GLOB previously reported as: 2.5 g/dL Performed By: #### L 501.6710, L3100.5017, L500.4050, L100.0100, L504.2610, L101.9900 #### [facility] [address] [place], [address] Glucose [Mass/Vol] 276 mg/dL High 70-99 [facility] Comment on above: Performed By: #### L 501.6710, L3100.5017, L500.4050, L100.0100, L504.2610, L101.9900 #### [facility] [address] [place], [address] Potassium [Moles/Vol] 3.8 mmol/L Normal 3.3-5.1 [facility] Comment on above: Result Comment: AMENDED REPORT 01/11/251444 K previously reported as: 3.6 mmol/L Performed By: #### L 501.6710, L3100.5017, L500.4050, L100.0100, L504.2610, L101.9900 #### [facility] [address] [place], [address] Sodium [Moles/Vol] 136 mmol/L Normal 133-145 [facility] Comment on above: Result Comment: AMENDED REPORT 01/11/251444 NA previously reported as: 135 mmol/L Performed By: #### L 501.6710, L3100.5017, L500.4050, L100.0100, L504.2610, L101.9900 #### [facility] [address] [place], [address] T PROT 5.9 g/dL Normal 5.9-8.4 [facility] Comment on above: Result Comment: AMENDED REPORT 01/11/251444 T PROT previously reported as: 6.2 g/dL Performed By: #### L 501.6710, L3100.5017, L500.4050, L100.0100, L504.2610, L101.9900 #### [facility] [address] [place], [address] Urea nitrogen [Mass/Vol] 8 mg/dL Normal 4-19 [facility] Comment on above: Result Comment: AMENDED REPORT 01/11/251444 BUN previously reported as: 7 mg/dL Performed By: #### L 501.6710, L3100.5017, L500.4050, L100.0100, L504.2610, L101.9900 #### [facility] [address] [facility] [place], [place], [id number] Eosinophil percentageOrdered By: Keenan Celeste on 01-11-2025 Eosinophils/100 WBC (Bld) 2.4 % 0-5 [facility] Erythrocyte distribution wid th ratioOrdered By: Keenan Celeste on 01-11-2025 Erythrocyte distribution width (RBC) [Ratio] 15.1 % High 11.6-14.6 [facility] Erythrocyte distribution wid th standard deviationOrdered By: Keenan Celeste on 01-11-2025 Erythrocyte distribution width (RBC) [Entitic vol] 47.8 fL High 35.1-43.9 [facility] Estimation of creatinine pallavi aranceOrdered By: Keenan Celeste on 01-11-2025 Estimated Creatinine Clearance Calc 44.71 ml/min Low 50-250 [facility] GFR/1.73 sq M.predicted karlee g non-blacks MDRD (S/P/Bld) [Vol rate/Area]Ordered By: Keenan Celeste on 01-11-2025 Estimated GFR (MDRD) Non-Af Amer 81 >60 [facility] Comment on above: mL/min/1.73m2 CKD-EP I Creatinine Equation (2020) Hematocrit Auto (Bld) [Volum e fraction]Ordered By: Keenan Celeste on 01-11-2025 Hematocrit (Bld) [Volume fraction] 34.2 % Low 37-47 [facility] Hemoglobin measurementOrdere d By: Keenan Celeste on 01-11-2025 Hemoglobin (Bld) [Mass/Vol] 11.7 g/dL Low 12.0-15.0 [facility] Immature granulocytes/100 WB C Auto (Bld)Ordered By: Keenan Celeste on 01-11-2025 Immature granulocytes/100 WBC (Bld) 0.400 % 0.0-0.9 [facility] Comment on above: IG% - Immature Granu locytes (promyelocytes, myelocytes and metamyelocytes) > 1% indicates that a LEFT SHIFT is Present. Laboratory - Chemistry and C hemistry - challengeOrdered By: Keenan Celeste on 01-11-2025 AST [Catalytic activity/Vol] 247 U/L High <32 [facility] Comment on above: Previous reported re sult: 240 U/LEdited by: AUTOINS on 01/11/25:1445 AMENDED REPORT 01/11/25 1445 AST previously reported as: 240 H U/L Lymphocytes Auto (Unsp spec) [#/Vol]Ordered By: Keenan Celeste on 01-11-2025 Lymphocytes (Bld) [#/Vol] 1.14 10*3/uL 0.83-4.51 [facility] Lymphocytes/100 WBC Auto (Un sp spec)Ordered By: Keenan Celeste on 01-11-2025 Lymphocytes/100 WBC (Bld) 22.9 % 19-41 [facility] MCV (mean corpuscular volume ) determinationOrdered By: Keenan Celeste on 01-11-2025 MCV (RBC) [Entitic vol] 86.8 fL 81-99 [facility] Mean corpuscular hemoglobin (MCH) determinationOrdered By: Keenan Celeste on 01-11-2025 MCH (RBC) [Entitic mass] 29.7 pg 27.0-32.0 [facility] Mean corpuscular hemoglobin concentration (MCHC) determinationOrdered By: Keenan Celeste on 01-11-2025 MCHC (RBC) [Mass/Vol] 34.2 g/dL 32-36 [facility] Mean platelet volume determi nationOrdered By: Keenan Celeste on 01-11-2025 Platelet mean volume (Bld) [Entitic vol] 13.7 fL High 6.2-12.0 [facility] Monocyte percentageOrdered B y: Keenan Celeste on 01-11-2025 Monocytes/100 WBC (Bld) 11.6 % High 0-10 [facility] Neutrophil percentageOrdered By: Keenan Celeste on 01-11-2025 Neutrophils/100 WBC (Bld) 62.1 % 47-70 [facility] Nucleated red blood cell per centageOrdered By: Keenan Celeste on 01-11-2025 Nucleated RBC/100 WBC (Bld) [Ratio] 0 % 0-5 [facility] Platelet countOrdered By: Adilson Celeste on 01-11-2025 Platelets (Bld) [#/Vol] 169 10*3/uL 150-450 [facility] Potassium (Unsp spec) [Mass/ Vol]Ordered By: Keenan Celeste on 01-11-2025 Potassium [Moles/Vol] 3.8 mmol/L 3.3-5.1 [facility] Comment on above: Previous reported re sult: 3.6 mmol/LEdited by: BRIDGER on 01/11/25:1445 AMENDED REPORT 01/11/251444 K previously reported as: 3.6 mmol/L RBC Auto (Bld) [#/Vol]Ordere d By: Keenan Celeste on 01-11-2025 RBC (Bld) [#/Vol] 3.94 10*6/uL Low 4.2-5.4 [facility] Serum creatinine measurement (mass/volume)Ordered By: Keenan Celeste on 01-11-2025 Creatinine [Mass/Vol] 0.74 mg/dL 0.70-1.20 [facility] Comment on above: Icterus present, Res ults may be affected.Previous reported result: 0.73 mg/dLEdited by: BRIDGER on 01/11/25:1445 AMENDED REPORT 01/11/251444 CREAT,SERUM previously reported as: 0.73 mg/dL Icterus present, Results may be affected. Serum globulin measurementOr dered By: Keenan Celeste on 01-11-2025 Globulin (S) [Mass/Vol] 2.1 g/dL Low 2.2-4.2 [facility] Comment on above: Previous reported re sult: 2.5 g/dLEdited by: BRIDGER on 01/11/25:1445 AMENDED REPORT 01/11/25 144 GLOB previously reported as: 2.5 g/dL Serum glucose measurement (m ass/volume)Ordered By: Keenan Celeste on 01-11-2025 Glucose [Mass/Vol] 276 mg/dL High 70-99 [facility] Serum or plasma alanine mendoza otransferase (ALT) measurementOrdered By: Keenan Celeste on 01-11-2025 ALT [Catalytic activity/Vol] 343 U/L High <35 [facility] Comment on above: Previous reported re sult: 333 U/LEdited by: BRIDGER on 01/11/25:1445 AMENDED REPORT 01/11/251444 ALT previously reported as: 333 H U/L Serum or plasma albumin froylan urement (mass/volume)Ordered By: Keenan Celeste on 01-11-2025 Albumin [Mass/Vol] 3.9 g/dL 3.4-4.8 [facility] Comment on above: Previous reported re sult: 3.7 g/dLEdited by: BRIDGER on 01/11/25:1445 AMENDED REPORT 01/11/25 144 ALB previously reported as: 3.7 g/dL Serum or plasma albumin/glob ulin mass ratioOrdered By: Keenan Celeste on 01-11-2025 Albumin/Globulin [Mass ratio] 1.8 {ratio} 0.9-2.4 [facility] Comment on above: Previous reported re sult: 1.5 RATIOEdited by: BRIDGER on 01/11/25:1445 AMENDED REPORT 01/11/25 144 A/G previously reported as: 1.5 RATIO Serum or plasma alkaline charli sphatase measurementOrdered By: Keenan Celeste on 01-11-2025 ALP [Catalytic activity/Vol] 366 U/L High 35-104 [facility] Comment on above: Previous reported re sult: 349 U/LEdited by: AUTOINS on 01/11/25:1445 AMENDED REPORT 01/11/25 1445 ALK P previously reported as: 349 H U/L Serum or plasma calcium froylan urement (mass/volume)Ordered By: Keenan Celeste on 01-11-2025 Calcium [Mass/Vol] 9.5 mg/dL 7.6-11.0 [facility] Comment on above: Previous reported re sult: 9.7 mg/dLEdited by: BRIDGER on 01/11/25:1445 AMENDED REPORT 01/11/25 144 CA previously reported as: 9.7 mg/dL Serum or plasma urea nitroge n measurement (mass/volume)Ordered By: Keenan Celeste on 01-11-2025 Urea nitrogen [Mass/Vol] 8 mg/dL 4-19 [facility] Comment on above: Previous reported re sult: 7 mg/dLEdited by: BRIDGER on 01/11/25:1445 AMENDED REPORT 01/11/25 144 BUN previously reported as: 7 mg/dL Sodium levelOrdered By: Keenan Celeste on 01-11-2025 Sodium [Moles/Vol] 136 mmol/L 133-145 [facility] Comment on above: Previous reported re sult: 135 mmol/LEdited by: BRIDGER on 01/11/25:1445 AMENDED REPORT 01/11/25 144 NA previously reported as: 135 mmol/L Total proteinOrdered By: Daniela Celeste on 01-11-2025 Protein [Mass/Vol] 5.9 g/dL 5.9-8.4 [facility] Comment on above: Previous reported re sult: 6.2 g/dLEdited by: BRIDGER on 01/11/25:1445 AMENDED REPORT 01/11/251444 T PROT previously reported as: 6.2 g/dL White blood cell (WBC) count Ordered By: Keenan Celeste on 01-11-2025 WBC (Bld) [#/Vol] 5.0 10*3/uL 4.4-11.0 [facility] Bedside Glucoseon 01-10-2025 FINGERSTICK GLU 388 mg/dL High 74-106 [facility] Comment on above: Result Comment: JILLIAN GEMENT OF PATIENT CARE PER NURSING PROTOCOL Performed By: #### L 501.6710, L3100.5017, L500.4050, L100.0100, L504.2610, L101.9900 #### [facility] [address] [place], [address] FINGERSTICK GLU 369 mg/dL High 74-106 [facility] Comment on above: Result Comment: JILLIAN GEMENT OF PATIENT CARE PER NURSING PROTOCOL Performed By: #### L 501.6710, L3100.5017, L500.4050, L100.0100, L504.2610, L101.9900 #### [facility] [address] [place], [address] FINGERSTICK GLU 311 mg/dL High 74-106 [facility] Comment on above: Result Comment: JILLIAN GEMENT OF PATIENT CARE PER NURSING PROTOCOL Performed By: #### L 100.0100, L500.4050 #### [facility] [address] [place], [address] CBC W/Diff, Automatedon - Absolute Lymph 1.24 X10 3/uL Normal 0.83-4.51 [facility] Comment on above: Performed By: #### L 100.0100, L500.4050 #### [facility] [address] [place], [address] Absolute Neut 4.3 X10 3/uL Normal 2.0-7.7 [facility] Comment on above: Performed By: #### L 100.0100, L500.4050 #### [facility] [address] [place], [address] Basophils/100 WBC (Bld) 0.5 % Normal 0-1 [facility] Comment on above: Performed By: #### L 100.0100, L500.4050 #### [facility] [address] [place], [address] Eosinophils/100 WBC (Bld) 1.1 % Normal 0-5 [facility] Comment on above: Performed By: #### L 100.0100, L500.4050 #### [facility] [address] [place], [address] Erythrocyte distribution width (RBC) [Ratio] 14.7 % High 11.6-14.6 [facility] Comment on above: Performed By: #### L 100.0100, L500.4050 #### [facility] [address] [place], [address] Hematocrit (Bld) [Volume fraction] 35.0 % Low 37-47 [facility] Comment on above: Performed By: #### L 100.0100, L500.4050 #### [facility] [address] [place], [address] Hemoglobin (Bld) [Mass/Vol] 12.0 g/dL Normal 12.0-15.0 [facility] Comment on above: Performed By: #### L 100.0100, L500.4050 #### [facility] [address] [place], [address] IG% 0.200 Normal 0.0-0.9 [facility] Comment on above: Result Comment: IG% - Immature Granulocytes (promyelocytes, myelocytes and metamyelocytes) > 1% indicates that a LEFT SHIFT is Present. Performed By: #### L 100.0100, L500.4050 #### [facility] [address] [place], [address] Lymphocytes/100 WBC (Bld) 19.4 % Normal 19-41 [facility] Comment on above: Performed By: #### L 100.0100, L500.4050 #### [facility] [address] [place], [address] MCH (RBC) [Entitic mass] 30.0 pg Normal 27.0-32.0 [facility] Comment on above: Performed By: #### L 100.0100, L500.4050 #### [facility] [address] [place], [address] MCHC (RBC) [Mass/Vol] 34.3 g/dL Normal 32-36 [facility] Comment on above: Performed By: #### L 100.0100, L500.4050 #### [facility] [address] [place], [address] MCV (RBC) [Entitic vol] 87.5 fL Normal 81-99 [facility] Comment on above: Performed By: #### L 100.0100, L500.4050 #### [facility] [address] [place], [address] Monocytes/100 WBC (Bld) 12.1 % High 0-10 [facility] Comment on above: Performed By: #### L 100.0100, L500.4050 #### [facility] [address] [place], [address] Neutrophils/100 WBC (Bld) 66.7 % Normal 47-70 [facility] Comment on above: Performed By: #### L 100.0100, L500.4050 #### [facility] [address] [place], [address] Nucleated RBC (Bld) [#/Vol] 0 10*3/uL Normal 0-5 [facility] Comment on above: Performed By: #### L 100.0100, L500.4050 #### [facility] [address] [place], [address] Platelet mean volume (Bld) [Entitic vol] 13.5 fL High 6.2-12.0 [facility] Comment on above: Performed By: #### L 100.0100, L500.4050 #### [facility] [address] [place], [address] Platelets (Bld) [#/Vol] 167 10*3/uL Normal 150-450 [facility] Comment on above: Performed By: #### L 100.0100, L500.4050 #### [facility] [address] [place], [address] RBC (Bld) [#/Vol] 4.00 10*6/uL Low 4.2-5.4 [facility] Comment on above: Performed By: #### L 100.0100, L500.4050 #### [facility] [address] [place], [address] RDW SD 47.3 fl High 35.1-43.9 [facility] Comment on above: Performed By: #### L 100.0100, L500.4050 #### [facility] [address] [place], [address] WBC (Bld) [#/Vol] 6.4 10*3/uL Normal 4.4-11.0 [facility] Comment on above: Performed By: #### L 100.0100, L500.4050 #### [facility] [address] [place], [address] Calculated very low density lipoprotein (VLDL) cholesterol measurementOrdered By: Oniel Hernandez on 01-10-2025 VLDL Cholesterol 26 mg/dL 5-40 [facility] Comprehensive Metabolic Prof ilon 01-10-2025 Albumin [Mass/Vol] 3.8 g/dL Normal 3.4-4.8 [facility] Comment on above: Performed By: #### L 100.0100, L500.4050 #### [facility] [address] [place], [address] Albumin/Globulin [Mass ratio] 1.4 {ratio} Normal 0.9-2.4 [facility] Comment on above: Performed By: #### L 100.0100, L500.4050 #### [facility] [address] [place], [address] ALK PHOS 374 U/L High 35-104 [facility] Comment on above: Performed By: #### L 100.0100, L500.4050 #### [facility] [address] [place], [address] ALT [Catalytic activity/Vol] 367 U/L High <=34 [facility] Comment on above: Performed By: #### L 100.0100, L500.4050 #### [facility] [address] [place], [address] AST [Catalytic activity/Vol] 286 U/L High <=31 [facility] Comment on above: Performed By: #### L 100.0100, L500.4050 #### [facility] [address] [place], [address] Bilirubin [Mass/Vol] 8.88 mg/dL High 0.00-1.30 [facility] Comment on above: Performed By: #### L 100.0100, L500.4050 #### [facility] [address] [place], [address] BUN/CRE 13.6 RATIO Normal 10-20 [facility] Comment on above: Performed By: #### L 100.0100, L500.4050 #### [facility] [address] [place], [address] Calcium [Mass/Vol] 9.4 mg/dL Normal 7.6-11.0 [facility] Comment on above: Performed By: #### L 100.0100, L500.4050 #### [facility] [address] [place], [address] Chloride [Moles/Vol] 101 mmol/L Normal 98-108 [facility] Comment on above: Performed By: #### L 100.0100, L500.4050 #### [facility] [address] [place], [address] CO2 [Moles/Vol] 17.3 mmol/L Low 21.0-32.0 [facility] Comment on above: Performed By: #### L 100.0100, L500.4050 #### [facility] [address] [place], [address] Creatinine [Mass/Vol] 0.65 mg/dL Low 0.70-1.20 [facility] Comment on above: Result Comment: Icte cristina present, Results may be affected. Performed By: #### L 100.0100, L500.4050 #### [facility] [address] [place], [address] ECRCL 44.61 ml/min Low 50-250 [facility] Comment on above: Performed By: #### L 100.0100, L500.4050 #### [facility] [address] [place], [address] GAP 16 High 5-15 [facility] Comment on above: Performed By: #### L 100.0100, L500.4050 #### [facility] [address] [place], [address] GFR/1.73 sq M.predicted among non-blacks MDRD (S/P/Bld) [Vol rate/Area] 87 mL/min/{1.73_m2} Normal >60 [facility] Comment on above: Result Comment: mL/m in/1.73m2 CKD-EPI Creatinine Equation (2020) Performed By: #### L 100.0100, L500.4050 #### [facility] [address] [place], [address] Globulin (S) [Mass/Vol] 2.7 g/dL Normal 2.2-4.2 [facility] Comment on above: Performed By: #### L 100.0100, L500.4050 #### [facility] [address] [place], [address] Glucose [Mass/Vol] 371 mg/dL High 70-99 [facility] Comment on above: Performed By: #### L 100.0100, L500.4050 #### [facility] [address] [place], [address] Potassium [Moles/Vol] 3.4 mmol/L Normal 3.3-5.1 [facility] Comment on above: Performed By: #### L 100.0100, L500.4050 #### [facility] [address] [place], [address] Sodium [Moles/Vol] 134 mmol/L Normal 133-145 [facility] Comment on above: Performed By: #### L 100.0100, L500.4050 #### [facility] [address] [place], [address] T PROT 6.6 g/dL Normal 5.9-8.4 [facility] Comment on above: Performed By: #### L 100.0100, L500.4050 #### [facility] [address] [place], [address] Urea nitrogen [Mass/Vol] 9 mg/dL Normal 4-19 [facility] Comment on above: Performed By: #### L 100.0100, L500.4050 #### [facility] [address] [place], [address] H AND P Exam - Hospitaliston 01-10-2025 H&P Exam - Hospitalist [facility] Medical Records Department [address] [place] [address] H P Exam - Hospitalist 01/10/25 0039 MR#: [id number] Acct: [id number] Name: TELMA TINEO Rep #: [id number] : 1940 84 From: Oniel Golden DO PCP: Dr. Henok Martinez MD Status:[place] [facility] [id number] [facility] - General General Date of Admission: [...] with chronic neck pain who presents to [facility] ER complaining of jaundice. Ms. [...] She was then arranged for transfer to [facility] with bed not available at this time so the ER physician is contacted the hospitalist service to admit this patient until such time she can be safely transferred as per the policy of this hospital. She was then admitted to the general medical floor for ongoing care for stay that is expected to extend beyond 2 midnights. [facility] Medical History (Updated 01/10/25 @ 02:15 by [...] 02:12 by (more content not included)... Normal [facility] Hemoglobin A1con 01-10-2025 HbA1c (Bld) [Mass fraction] 13.2 % Normal <=5.6 [facility] Comment on above: Performed By: #### L 100.0100, L500.4050 #### [facility] [address] [place], [address] Hemoglobin A1c percentageOrd ered By: Keenan Celeste on 01-10-2025 HbA1c (Bld) [Mass fraction] 13.2 % >5.7 [facility] LDL calc ser/plasOrdered By: Oniel Hernandez on 01-10-2025 LDL Cholesterol, Calculated 78 mg/dL [facility] Comment on above: Kfvczmapms=941-313 m g/dL & Higher Vrao=058 mg/dL or greater Lipid Profileon 01-10-2025 CHOL:HDL 2.91 Normal [facility] Comment on above: Performed By: #### L 100.0100, L500.4050 #### [facility] [address] [place], [address] Cholesterol [Mass/Vol] 159 mg/dL Normal <=200 [facility] Comment on above: Result Comment: Chol esterol level, Desirable <200 mg/dL Borderline high cholesterol 200-239 mg/dL High cholesterol >=240 mg/dL Recommendations of the NCEP Adult Treatment Panel for the following risk-cutoff thresholds for the [place] population. Performed By: #### L 100.0100, L500.4050 #### [facility] [address] [place], [address] Cholesterol in HDL [Mass/Vol] 55 mg/dL Normal [facility] Comment on above: Result Comment: Loulou onal Cholesterol Education Program (NCEP) guidelines: <40 mg/dL: Low HDL-cholesterol (major risk factor for CHD) >= 60 mg/dL: High HDL-cholesterol (negative risk factor for CHD) HDL-cholesterol is affected by a number of factors, e.g. smoking, exercise, hormones, sex and age. Performed By: #### L 100.0100, L500.4050 #### [facility] [address] [place], [address] Cholesterol in LDL [Mass/Vol] 78 mg/dL Normal [facility] Comment on above: Result Comment: Bord yhywpq=205-376 mg/dL Higher Kyes=960 mg/dL or greater Performed By: #### L 100.0100, L500.4050 #### [facility] [address] [place], [address] Cholesterol in VLDL [Mass/Vol] 26 mg/dL Normal 5-40 [facility] Comment on above: Performed By: #### L 100.0100, L500.4050 #### [facility] [address] [place], [address] Triglyceride [Mass/Vol] 130 mg/dL Normal [facility] Comment on above: Result Comment: The drugs N-Acetylcysteine and Metamizole may falsely depress this assay. Normal range: <150 mg/dL Borderline High: 150-199 mg/dL High: 200-499 mg/dL Very High: >500 mg/dL Performed By: #### L 100.0100, L500.4050 #### [facility] [address] [place], [address] Magnesiumon 01-10-2025 Magnesium [Mass/Vol] 1.9 mg/dL Normal 1.5-2.2 [facility] Comment on above: Performed By: #### L 100.0100, L500.4050 #### [facility] [address] [place], [address] Phosphoruson 01-10-2025 Phosphate [Mass/Vol] 2.9 mg/dL Normal 2.7-4.5 [facility] Comment on above: Performed By: #### L 100.0100, L500.4050 #### [facility] [address] [place], [address] Screening total cholesterol/ high density lipoprotein (HDL) cholesterol ratioOrdered By: Oniel Hernandez on 01-10-2025 Cholesterol.total/Chol esterol in HDL [Mass ratio] 2.91 {ratio} [facility] Serum or plasma cholesterol in HDL measurement (mass/volume)Ordered By: Oniel Hernandez on 01-10-2025 Cholesterol in HDL [Mass/Vol] 55 mg/dL >40 [facility] Comment on above: National Cholesterol Education Program (NCEP) guidelines:<40 mg/dL: Low HDL-cholesterol (major risk factor for CHD)>= 60 mg/dL: High HDL-cholesterol (negative risk factor for CHD)HDL-cholesterol is affected by a number of factors, e.g. smoking, exercise, hormones, sex and age. Serum or plasma cholesterol measurement (mass/volume)Ordered By: Oniel Hernandez on 01-10-2025 Cholesterol [Mass/Vol] 159 mg/dL <201 [facility] Comment on above: Cholesterol level, D esirable <200 mg/dLBorderline high cholesterol 200-239 mg/dLHigh cholesterol >=240 mg/dLRecommendations of the NCEP Adult Treatment Panel for the following risk-cutoff thresholds for the [place] population. Serum phosphorus measurement Ordered By: Oniel Hernandez on 01-10-2025 Phosphorus Level 2.9 mg/dL 2.7-4.5 [facility] TSH DL <= 0.005 mIU/L QnOrde red By: Oniel Hernandez on 01-10-2025 Thyroid Stimulating Hormone (TSH) 2.180 uIU/mL 0.300-4.200 [facility] Thyroid Stim Hormone (TSH)on 01-10-2025 TSH 2.180 uIU/mL Normal 0.300-4.200 [facility] Comment on above: Performed By: #### L 100.0100, L500.4050 #### [facility] [address] [place], [address] Triglycerides measurementOrd ered By: Oniel Hernandez on 01-10-2025 Triglyceride [Mass/Vol] 130 mg/dL <199 [facility] Comment on above: The drugs N-Acetylcy steine and Metamizole may falsely depress this assay. Normal range: <150 mg/dLBorderline High: 150-199 mg/dLHigh: 200-499 mg/dLVery High: >500 mg/dL Abdomen/Pelvis W IV Cont ONL Yon 01-09-2025 Abdomen/Pelvis W IV Cont ONLY [facility] Imaging Services [address] [place] [address] Abdomen/Pelvis W IV Cont ONLY MR#: [id number] Acct: [id number] Name: TELMA TINEO Rep #: [id number] : 1940 F 84 From: Keenan Jonas MD PCP: Dr. Henok Martinez MD Status: REG ER Study: Abdomen/Pelvis W IV Cont ONLY Date of Exam: Exam# [id number] Ordering Dr: Guille Garnica MD PROCEDURE: ABDOMEN/PELVIS [...] Guille Garnica MD; Dr. Henok Martinez MD Program Engagement Director: Signed Normal [facility] Absolute neutrophil countOrd ered By: Guille Garnica on 01-09-2025 Neutrophils (Bld) [#/Vol] 4.2 10*3/uL 2.0-7.7 [facility] Anion gap in Serum or Plasma Ordered By: Guille Garnica on 01-09-2025 Anion gap [Moles/Vol] 14 mmol/L 03-11 [facility] BUN/creatinine ratioOrdered By: Guille Garnica on 01-09-2025 Urea nitrogen/Creatinine [Mass ratio] 14.0 mg/mg 08-16 [facility] Basic Metabolic Profile (BMP )on 01-09-2025 BUN/CRE 14.0 RATIO Normal 08-16 [facility] Comment on above: Performed By: #### L 503.6005 #### [facility] [address] [place], [address] Calcium [Mass/Vol] 9.9 mg/dL Normal 7.6-11.0 [facility] Comment on above: Performed By: #### L 503.6005 #### [facility] [address] [place], [address] Chloride [Moles/Vol] 98 mmol/L Normal 98-108 [facility] Comment on above: Performed By: #### L 503.6005 #### [facility] [address] [place], [address] CO2 [Moles/Vol] 20.3 mmol/L Low 21.0-32.0 [facility] Comment on above: Performed By: #### L 503.6005 #### [facility] [address] [place], [address] Creatinine [Mass/Vol] 0.81 mg/dL Normal 0.70-1.20 [facility] Comment on above: Result Comment: Icte cristina present, Results may be affected. Performed By: #### L 503.6005 #### [facility] [address] [place], [address] ECRCL 44.58 ml/min Low 50-250 [facility] Comment on above: Performed By: #### L 503.6005 #### [facility] [address] [place], [address] GAP 14 Normal 5-15 [facility] Comment on above: Performed By: #### L 503.6005 #### [facility] [address] [place], [address] GFR/1.73 sq M.predicted among non-blacks MDRD (S/P/Bld) [Vol rate/Area] 71 mL/min/{1.73_m2} Normal >60 [facility] Comment on above: Result Comment: mL/m in/1.73m2 CKD-EPI Creatinine Equation (2020) Performed By: #### L 503.6005 #### [facility] [address] [place], [address] Glucose [Mass/Vol] 418 mg/dL High 70-99 [facility] Comment on above: Performed By: #### L 503.6005 #### [facility] [address] [place], [address] Potassium [Moles/Vol] 3.8 mmol/L Normal 3.3-5.1 [facility] Comment on above: Performed By: #### L 503.6005 #### [facility] [address] [place], [address] Sodium [Moles/Vol] 132 mmol/L Low 133-145 [facility] Comment on above: Performed By: #### L 503.6005 #### [facility] [address] [place], [address] Urea nitrogen [Mass/Vol] 11 mg/dL Normal 4-19 [facility] Comment on above: Performed By: #### L 503.6005 #### [facility] [address] [place], [address] Basophil percentageOrdered B y: Guille Garnica on 01-09-2025 Basophils/100 WBC (Bld) 0.6 % 0- [facility] Bilirubin directOrdered By: Guille Garnica on 01-09-2025 Bilirubin.direct [Mass/Vol] 7.64 mg/dL High 0.00-0.30 [facility] Bilirubin, totalOrdered By: Guille Garnica on 01-09-2025 Bilirubin [Mass/Vol] 9.78 mg/dL High 0.00-1.30 [facility] CBC W/Diff, Automatedon 12-26 Absolute Lymph 1.37 X10 3/uL Normal 0.83-4.51 [facility] Comment on above: Performed By: #### L 100.0100, L500.4050 #### [facility] [address] [place], [address] Absolute Neut 4.2 X10 3/uL Normal 2.0-7.7 [facility] Comment on above: Performed By: #### L 100.0100, L500.4050 #### [facility] [address] [place], [address] Basophils/100 WBC (Bld) 0.6 % Normal 0-1 [facility] Comment on above: Performed By: #### L 100.0100, L500.4050 #### [facility] [address] [place], [address] Eosinophils/100 WBC (Bld) 1.1 % Normal 0-5 [facility] Comment on above: Performed By: #### L 100.0100, L500.4050 #### [facility] [address] [place], [address] Erythrocyte distribution width (RBC) [Ratio] 14.6 % Normal 11.6-14.6 [facility] Comment on above: Performed By: #### L 100.0100, L500.4050 #### [facility] [address] [place], [address] Hematocrit (Bld) [Volume fraction] 37.4 % Normal 37-47 [facility] Comment on above: Performed By: #### L 100.0100, L500.4050 #### [facility] [address] [place], [address] Hemoglobin (Bld) [Mass/Vol] 12.6 g/dL Normal 12.0-15.0 [facility] Comment on above: Performed By: #### L 100.0100, L500.4050 #### [facility] [address] [place], [address] IG% 0.300 Normal 0.0-0.9 [facility] Comment on above: Result Comment: IG% - Immature Granulocytes (promyelocytes, myelocytes and metamyelocytes) > 1% indicates that a LEFT SHIFT is Present. Performed By: #### L 100.0100, L500.4050 #### [facility] [address] [place], [address] Lymphocytes/100 WBC (Bld) 21.5 % Normal 19-41 [facility] Comment on above: Performed By: #### L 100.0100, L500.4050 #### [facility] [address] [place], [address] MCH (RBC) [Entitic mass] 29.6 pg Normal 27.0-32.0 [facility] Comment on above: Performed By: #### L 100.0100, L500.4050 #### [facility] [address] [place], [address] MCHC (RBC) [Mass/Vol] 33.7 g/dL Normal 32-36 [facility] Comment on above: Performed By: #### L 100.0100, L500.4050 #### [facility] [address] [place], [address] MCV (RBC) [Entitic vol] 87.8 fL Normal 81-99 [facility] Comment on above: Performed By: #### L 100.0100, L500.4050 #### [facility] [address] [place], [address] Monocytes/100 WBC (Bld) 10.8 % High 0-10 [facility] Comment on above: Performed By: #### L 100.0100, L500.4050 #### [facility] [address] [place], [address] Neutrophils/100 WBC (Bld) 65.7 % Normal 47-70 [facility] Comment on above: Performed By: #### L 100.0100, L500.4050 #### [facility] [address] [place], [address] Nucleated RBC (Bld) [#/Vol] 0 10*3/uL Normal 0-5 [facility] Comment on above: Performed By: #### L 100.0100, L500.4050 #### [facility] [address] [place], [address] Platelet mean volume (Bld) [Entitic vol] 13.7 fL High 6.2-12.0 [facility] Comment on above: Performed By: #### L 100.0100, L500.4050 #### [facility] [address] [place], [address] Platelets (Bld) [#/Vol] 171 10*3/uL Normal 150-450 [facility] Comment on above: Performed By: #### L 100.0100, L500.4050 #### [facility] [address] [place], [address] RBC (Bld) [#/Vol] 4.26 10*6/uL Normal 4.2-5.4 [facility] Comment on above: Performed By: #### L 100.0100, L500.4050 #### [facility] [address] [place], [address] RDW SD 47.2 fl High 35.1-43.9 [facility] Comment on above: Performed By: #### L 100.0100, L500.4050 #### [facility] [address] [place], [address] WBC (Bld) [#/Vol] 6.4 10*3/uL Normal 4.4-11.0 [facility] Comment on above: Performed By: #### L 100.0100, L500.4050 #### [facility] [address] [place], [address] Cancer antigen 19-9 measurem entOrdered By: Hung Remy on 01-09-2025 CA 19-9 Antigen 355 U/mL High 0-35 [facility] Comment on above: [facility] El ectrochemiluminescence Immunoassay(ECLIA)Values obtained with different assay methods or kits cannotbe used interchangeably. Results cannot be interpreted asabsolute evidence of the presence or absence of malignantdisease.Performed at: [place] [id number] [place], [place] [id number] Director: Barry Hart PhD, Phone: [phone] Carbon dioxide, total [Moles /volume] in Central venous bloodOrdered By: Guille Garnica on 01-09-2025 CO2 [Moles/Vol] 20.3 mmol/L Low 21.0-32.0 [facility] Chloride assayOrdered By: Mario Garnica on 01-09-2025 Chloride [Moles/Vol] 98 mmol/L 98-108 [facility] Emergency Department Summary on 01-09-2025 Emergency Department Summary [facility] Medical Records Department [address] [place] [address] Emergency Department Summary 01/09/25 MR#: [id number] Acct: [id number] Name: TELMA TINEO Rep #: [id number] : 1940 84 From: Guille Garnica MD PCP: Dr. Henok Martinez MD Status:REG ER Location: ED ADDENDUM by Dr. Hung Remy DO on 01/09/25 at 2244 Update 2245 hrs.: Patient was accepted at [facility]. They are stating it is unlikely [...] last few days. No fevers or chills. [facility] Medical History Neck pain, bilateral History of [...] 99 97 (more content not included)... Normal [facility] Eosinophil percentageOrdered By: Guille Garnica on 01-09-2025 Eosinophils/100 WBC (Bld) 1.1 % 0-5 [facility] Erythrocyte distribution wid th ratioOrdered By: Guille Garnica on 01-09-2025 Erythrocyte distribution width (RBC) [Ratio] 14.6 % 11.6-14.6 [facility] Erythrocyte distribution wid th standard deviationOrdered By: Guille Garnica on 01-09-2025 Erythrocyte distribution width (RBC) [Entitic vol] 47.2 fL High 35.1-43.9 [facility] Estimation of creatinine pallavi aranceOrdered By: Guille Garnica on 01-09-2025 Estimated Creatinine Clearance Calc 44.58 ml/min Low 50-250 [facility] GFR/1.73 sq M.predicted karlee g non-blacks MDRD (S/P/Bld) [Vol rate/Area]Ordered By: Guille Garnica on 01-09-2025 Estimated GFR (MDRD) Non-Af Amer 71 >60 [facility] Comment on above: mL/min/1.73m2 CKD-EP I Creatinine Equation (2020) Hematocrit Auto (Bld) [Volum e fraction]Ordered By: Guille Garnica on 01-09-2025 Hematocrit (Bld) [Volume fraction] 37.4 % 37-47 [facility] Hemoglobin measurementOrdere d By: Guille Garnica on 01-09-2025 Hemoglobin (Bld) [Mass/Vol] 12.6 g/dL 12.0-15.0 [facility] Immature granulocytes/100 WB C Auto (Bld)Ordered By: Guille Garnica on 01-09-2025 Immature granulocytes/100 WBC (Bld) 0.300 % 0.0-0.9 [facility] Comment on above: IG% - Immature Granu locytes (promyelocytes, myelocytes and metamyelocytes) > 1% indicates that a LEFT SHIFT is Present. International normalized rat io (INR) calculationOrdered By: Guille Garnica on 01-09-2025 INR Coag (Bld) [Relative time] 1.0 {INR} [facility] - Chemistry and C hemistry - challengeOrdered By: Guille Garnica on 01-09-2025 AST [Catalytic activity/Vol] 308 U/L High <32 [facility] Lipaseon 01-09-2025 Lipase [Catalytic activity/Vol] 224 U/L High 13-75 [facility] Comment on above: Result Comment: Kisha kimbrough note: LIPASE revised reference range effective 23. New Lipase methodology. Expected to produce lower values than the previous assay method. NEW Reference Range: 13 - 75 U/L Performed By: #### L 503.6005 #### [facility] [address] [place] [address], [id number] Lipase measurementOrdered By : Guille Garnica on 01-09-2025 Lipase [Catalytic activity/Vol] 224 U/L High 13-75 [facility] Comment on above: Please note:LIPASE r evised reference range effective 23. New Lipase methodology. Expected to produce lower values than the previous assay method. NEW Reference Range: 13 - 75 U/L Liver Profileon 01-09-2025 Albumin [Mass/Vol] 4.2 g/dL Normal 3.4-4.8 [facility] Comment on above: Performed By: #### L 503.6005 #### [facility] [address] [place], [address] ALK PHOS 416 U/L High 35-104 [facility] Comment on above: Performed By: #### L 503.6005 #### [facility] [address] [place], [address] ALT [Catalytic activity/Vol] 390 U/L High <=34 [facility] Comment on above: Performed By: #### L 503.6005 #### [facility] [address] [place], [address] AST [Catalytic activity/Vol] 308 U/L High <=31 [facility] Comment on above: Performed By: #### L 503.6005 #### [facility] [address] [place], [address] Bilirubin [Mass/Vol] 9.78 mg/dL High 0.00-1.30 [facility] Comment on above: Performed By: #### L 503.6005 #### [facility] [address] [place], [address] Bilirubin.direct [Mass/Vol] 7.64 mg/dL High 0.00-0.30 [facility] Comment on above: Performed By: #### L 503.6005 #### [facility] [address] [place], [address] Globulin (S) [Mass/Vol] 3.1 g/dL Normal 2.2-4.2 [facility] Comment on above: Performed By: #### L 503.6005 #### [facility] [address] [place], [address] T PROT 7.3 g/dL Normal 5.9-8.4 [facility] Comment on above: Performed By: #### L 503.6005 #### [facility] [address] [place], [address] Lymphocytes Auto (Unsp spec) [#/Vol]Ordered By: Guille Garnica on 01-09-2025 Lymphocytes (Bld) [#/Vol] 1.37 10*3/uL 0.83-4.51 [facility] Lymphocytes/100 WBC Auto (Un sp spec)Ordered By: Guille Garnica on 01-09-2025 Lymphocytes/100 WBC (Bld) 21.5 % 19-41 [facility] MCV (mean corpuscular volume ) determinationOrdered By: Guille Garnica on 01-09-2025 MCV (RBC) [Entitic vol] 87.8 fL 81-99 [facility] Magnesium (Unsp spec) [Mass/ Vol]Ordered By: Oniel Hernandez on 01-09-2025 Magnesium [Mass/Vol] 1.9 mg/dL 1.5-2.2 [facility] Mean corpuscular hemoglobin (MCH) determinationOrdered By: Guille Garnica on 01-09-2025 MCH (RBC) [Entitic mass] 29.6 pg 27.0-32.0 [facility] Mean corpuscular hemoglobin concentration (MCHC) determinationOrdered By: Guille Garnica on 01-09-2025 MCHC (RBC) [Mass/Vol] 33.7 g/dL 32-36 [facility] Mean platelet volume determi nationOrdered By: Guille Garnica on 01-09-2025 Platelet mean volume (Bld) [Entitic vol] 13.7 fL High 6.2-12.0 [facility] Monocyte percentageOrdered B y: Guille Garnica on 01-09-2025 Monocytes/100 WBC (Bld) 10.8 % High 0-10 [facility] Neutrophil percentageOrdered By: Guille Garnica on 01-09-2025 Neutrophils/100 WBC (Bld) 65.7 % 47-70 [facility] No Panel InformationOrdered By: Hung Remy on 01-09-2025 CA 19-9 Antigen Serial Monitoring Not Reportable [facility] Nucleated red blood cell per centageOrdered By: Guille Garnica on 01-09-2025 Nucleated RBC/100 WBC (Bld) [Ratio] 0 % 0-5 [facility] Partial Thromboplast Timeon 01-09-2025 aPTT Coag (Bld) [Time] 26.1 s Normal 24.1-36.2 [facility] Comment on above: Performed By: #### L 503.6005 #### [facility] [address] [place], [address] Platelet countOrdered By: Mario Garnica on 01-09-2025 Platelets (Bld) [#/Vol] 171 10*3/uL 150-450 [facility] Potassium (Unsp spec) [Mass/ Vol]Ordered By: Guille Garnica on 01-09-2025 Potassium [Moles/Vol] 3.8 mmol/L 3.3-5.1 [facility] Prothrombin Time w/INRon INR Coag (PPP) [Relative time] 1.0 {INR} Normal [facility] Comment on above: Performed By: #### L 100.0100, L500.4050 #### [facility] [address] [place], [address] PT Coag (PPP) [Time] 12.8 s Normal 11.7-14.9 [facility] Comment on above: Performed By: #### L 100.0100, L500.4050 #### [facility] [address] [place], [address] Prothrombin timeOrdered By: Guille Garnica on 01-09-2025 PT Coag (PPP) [Time] 12.8 s 11.7-14.9 [facility] RBC Auto (Bld) [#/Vol]Ordere d By: Guille Garnica on 01-09-2025 RBC (Bld) [#/Vol] 4.26 10*6/uL 4.2-5.4 [facility] Serum creatinine measurement (mass/volume)Ordered By: Guille Garnica on 01-09-2025 Creatinine [Mass/Vol] 0.81 mg/dL 0.70-1.20 [facility] Comment on above: Icterus present, Res ults may be affected. Serum globulin measurementOr dered By: Guille Garnica on 01-09-2025 Globulin (S) [Mass/Vol] 3.1 g/dL 2.2-4.2 [facility] Serum glucose measurement (m ass/volume)Ordered By: Guille Garnica on 01-09-2025 Glucose [Mass/Vol] 418 mg/dL High 70-99 [facility] Serum or plasma alanine mendoza otransferase (ALT) measurementOrdered By: Guille Garnica on 01-09-2025 ALT [Catalytic activity/Vol] 390 U/L High <35 [facility] Serum or plasma albumin froylan urement (mass/volume)Ordered By: Guille Garnica on 01-09-2025 Albumin [Mass/Vol] 4.2 g/dL 3.4-4.8 [facility] Serum or plasma alkaline charli sphatase measurementOrdered By: Guille Garnica on 01-09-2025 ALP [Catalytic activity/Vol] 416 U/L High 35-104 [facility] Serum or plasma calcium froylan urement (mass/volume)Ordered By: Guille Garnica on 01-09-2025 Calcium [Mass/Vol] 9.9 mg/dL 7.6-11.0 [facility] Serum or plasma urea nitroge n measurement (mass/volume)Ordered By: Guille Garnica on 01-09-2025 Urea nitrogen [Mass/Vol] 11 mg/dL 4-19 [facility] Sodium levelOrdered By: Guille Garnica on 01-09-2025 Sodium [Moles/Vol] 132 mmol/L Low 133-145 [facility] Total proteinOrdered By: Angelica Garnica on 01-09-2025 Protein [Mass/Vol] 7.3 g/dL 5.9-8.4 [facility] White blood cell (WBC) count Ordered By: Guille Garnica on 01-09-2025 WBC (Bld) [#/Vol] 6.4 10*3/uL 4.4-11.0 [facility] aPTT Coag (PPP) [Time]Ordere d By: Guille Garnica on 01-09-2025 aPTT Coag (Bld) [Time] 26.1 s 24.1-36.2 [facility] CNPTOUTREACHon 01-04-2025 CNPTOUTREACH Normal [facility] CNOVon 11-17-2024 CNOV Normal [facility] US Abdomen RUQon 11-14-2024 IMPRESSION: No acute abnormality. No cholelithiasis. No biliary dilatation. The spleen is normal size. Program Engagement Director: PSCB Transcribe Date/Time: Nov 14 2024 6:40A Dictated by : CHANEL NARAYANAN MD This examination was interpreted and the report reviewed and electronically signed by: CHANEL NARAYANAN MD on Nov 14 2024 6:41AM [facility] * * *Final Report* [...] biliary dilatation. The spleen is normal size. Program Engagement Director[facility] Trans[facility] Date/Time: Nov 14 2024 6:40A Dictated by : CHANEL NARAYANAN MD This examination was interpreted and the report reviewed and electronically signed by: CHANEL NARAYANAN MD on Nov 14 2024 6:41AM EST [facility] US Abdomen RUQOrdered By: Molly carlson Provider on 11-14-2024 [facility] US ABD RIGHT UPPER QUADRANTo n 11-12-2024 US ABD RIGHT UPPER QUADRANT Normal [facility] US ABD SPLEEN -NBon 11-12-19 US ABD SPLEEN -NB Normal [facility] US Abdomen RUQon 11-12-2024 Radiology Study observation (narrative) [facility] CNTHERAPYon 11-09-2024 CNTHERAPY OT/PT/Speech Visit (SPMBME) -- TELMA TINEO ([id number]) 1940 F Date Time Provider Department 11/09/24 10:30 AM MELIZA PLASENCIA Date Time Provider Department Center 11/09/2024 10:30 AM [id number] PLASENCIA [facility] Reason for Visit: Speech Instrumental Swallow [...] with meals. - Blood Pressure Test Kit-Large (SURELIFE ARM BP MONITOR) 1 Each once daily. - Methylsulfonylmethane (MSM) 1,000 mg cap Take 1 capsule by mouth once daily. Letter Text Normal [facility] RF videography Hypopharynx a nd [...] and Hearing therapist report for further evaluation Program Engagement Director: AMBER Transcribe Date/Time: Nov 09 2024 1:03P Dictated by : KEVON EUBANKS MD This examination was interpreted and the report reviewed and electronically signed by: KEVON EUBANKS MD on Nov 09 2024 1:11PM [facility] Provider, [facility] [...] and Hearing therapist report for further evaluation Program Engagement Director: PSCZara Transcribe Date/Time: Nov 09 2024 1:03P Dictated by : KEVON EUBANKS MD This examination was interpreted and the report reviewed and electronically signed by: KEVON EUBANKS MD on Nov 09 2024 1:11PM EST [facility] Radiology Study observation (narrative) [facility] RF videography Hypopharynx a nd Esophagus Views W liquid and paste contrast PO during swallowingOrdered By: Ccf Provider on 11-09-2024 [facility] XR MOD BARIUM SWALLOW W SPEE [...] and Hearing therapist report for further evaluation Program Engagement Director: AMBER Transcribe Date/Time: Nov 09 2024 1:03P Dictated by : KEVON EUBANKS MD This examination was interpreted and the report reviewed and electronically signed by: KEVON EUBANKS MD on Nov 09 2024 1:11PM EST [id number] Normal [facility] CNPN Normal [facility] ALBUMIN/CREATININE RATIO, UR INEon 11-05-2024 Albumin DL <= 20 mg/L (U) [Mass/Vol] 43.1 mg/L Normal [facility] Comment on above: Order Comment: Speci men Type: URINE SPECIMENOrdering Facility: [facility] Address: [address] [place] [address] Performed By: #### U ACR ####[facility] LABCLIA [id number] [place] [address] [place] Albumin/Creatinine (U) [Mass ratio] 53 mg/g High <30 [facility] Comment on above: Order Comment: Speci men Type: URINE SPECIMENOrdering Facility: [facility] Address: [address] [place] [address] Result Comment: Adul t Male and Female Nephrotic Criteria:<30 mg/g is considered normal to mildly hyjqqdfuf33-556 mg/g is considered moderately increased>300 mg/g is considered severely increasedKDIGO. (2013). KDIGO 2012 Clinical Practice Guideline for the Evaluation and Management of Chronic Kidney Disease. Official Journal of the International Society of Nephrology, 3(1), 1-150. Performed By: #### U ACR ####[facility] LABCLIA [id number] [place] [id number] [place] Creatinine (U) [Mass/Vol] 81.6 mg/dL Normal 20.0-300.0 [facility] Comment on above: Order Comment: Speci men Type: URINE SPECIMENOrdering Facility: [facility] Address: [address] [place] [address] Performed By: #### U ACR ####[facility] LABCLIA [id number] [place] [address] [place] CBC W Auto Differential pane l (Bld)on 11-05-2024 Basophils (Bld) [#/Vol] 0.04 10*3/uL Normal <0.11 [facility] Comment on above: Order Comment: Speci men Type: BLOOD SPECIMENOrdering Facility: [facility] Address: [address] [place] [address] Performed By: #### 5 7021-8 ####[facility] LABCLIA [id number] [place] [address] [place] Basophils/100 WBC (Bld) 0.5 % Normal [facility] Comment on above: Order Comment: Speci men Type: BLOOD SPECIMENOrdering Facility: [facility] Address: [address] [place] [address] Performed By: #### 5 7021-8 ####[facility] LABCLIA [id number] [place] [address] [place] Differential cell count method Nom (Bld) Auto Normal [facility] Comment on above: Order Comment: Speci men Type: BLOOD SPECIMENOrdering Facility: [facility] Address: [address] [place] [address] Performed By: #### 5 7021-8 ####[facility] LABCLIA [id number] [place] [address] [place] Eosinophils (Bld) [#/Vol] 0.19 10*3/uL Normal <0.46 [facility] Comment on above: Order Comment: Speci men Type: BLOOD SPECIMENOrdering Facility: [facility] Address: [address] [place] [address] Performed By: #### 5 7021-8 ####[facility] LABCLIA [id number] [place] [address] [place] Eosinophils/100 WBC (Bld) 2.5 % Normal [facility] Comment on above: Order Comment: Speci men Type: BLOOD SPECIMENOrdering Facility: [facility] Address: [address] [place] [address] Performed By: #### 5 7021-8 ####[facility] LABIA [id number] [place] [address] [place] Erythrocyte distribution width (RBC) [Ratio] 12.9 % Normal 11.5-15.0 [facility] Comment on above: Order Comment: Speci men Type: BLOOD SPECIMENOrdering Facility: [facility] Address: [address] [place] [address] Performed By: #### 5 7021-8 ####[facility] LABIA [id number] [place] [address] [place] Hematocrit (Bld) [Volume fraction] 39.3 % Normal 36.0-46.0 [facility] Comment on above: Order Comment: Speci men Type: BLOOD SPECIMENOrdering Facility: [facility] Address: [address] [place] [address] Performed By: #### 5 7021-8 ####[facility] LABIA [id number] [place] [address] [place] Hemoglobin (Bld) [Mass/Vol] 12.7 g/dL Normal 11.5-15.5 [facility] Comment on above: Order Comment: Speci men Type: BLOOD SPECIMENOrdering Facility: [facility] Address: [address] [place] [address] Performed By: #### 5 7021-8 ####[facility] LABIA [id number] [place] [address] [place] Immature granulocytes (Bld) [#/Vol] 0.04 10*3/uL Normal <0.10 [facility] Comment on above: Order Comment: Speci men Type: BLOOD SPECIMENOrdering Facility: [facility] Address: [address] [place] [address] Performed By: #### 5 7021-8 ####[facility] LABCLIA [id number] [place] [address] [place] Immature granulocytes/100 WBC (Bld) 0.5 % Normal [facility] Comment on above: Order Comment: Speci men Type: BLOOD SPECIMENOrdering Facility: [facility] Address: [address] [place] [address] Performed By: #### 5 7021-8 ####[facility] LABIA [id number] [place] [address] [place] Lymphocytes (Bld) [#/Vol] 1.92 10*3/uL Normal 1.00-4.00 [facility] Comment on above: Order Comment: Speci men Type: BLOOD SPECIMENOrdering Facility: [facility] Address: [address] [place] [address] Performed By: #### 5 7021-8 ####[facility] LABIA [id number] [place] [address] [place] Lymphocytes/100 WBC (Bld) 25.6 % Normal [facility] Comment on above: Order Comment: Speci men Type: BLOOD SPECIMENOrdering Facility: [facility] Address: [address] [place] [address] Performed By: #### 5 7021-8 ####[facility] LABIA [id number] [place] [address] [place] MCH (RBC) [Entitic mass] 29.3 pg Normal 26.0-34.0 [facility] Comment on above: Order Comment: Speci men Type: BLOOD SPECIMENOrdering Facility: [facility] Address: [address] [place] [address] Performed By: #### 5 7021-8 ####[facility] LABIA [id number] [place] [address] [place] MCHC (RBC) [Mass/Vol] 32.3 g/dL Normal 30.5-36.0 [facility] Comment on above: Order Comment: Speci men Type: BLOOD SPECIMENOrdering Facility: [facility] Address: [address] [place] [address] Performed By: #### 5 7021-8 ####[facility] LABIA [id number] [place] [address] [place] MCV (RBC) [Entitic vol] 90.8 fL Normal 80.0-100.0 [facility] Comment on above: Order Comment: Speci men Type: BLOOD SPECIMENOrdering Facility: [facility] Address: [address] [place] [address] Performed By: #### 5 7021-8 ####[facility] LABIA [id number] [place] [address] [place] Monocytes (Bld) [#/Vol] 0.65 10*3/uL Normal <0.87 [facility] Comment on above: Order Comment: Speci men Type: BLOOD SPECIMENOrdering Facility: [facility] Address: [address] [place] [address] Performed By: #### 5 7021-8 ####[facility] LABIA [id number] [place] [address] [place] Monocytes/100 WBC (Bld) 8.7 % Normal [facility] Comment on above: Order Comment: Speci men Type: BLOOD SPECIMENOrdering Facility: [facility] Address: [address] [place] [address] Performed By: #### 5 7021-8 ####[facility] LABIA [id number] [place] [address] [place] Neutrophils (Bld) [#/Vol] 4.65 10*3/uL Normal 1.45-7.50 [facility] Comment on above: Order Comment: Speci men Type: BLOOD SPECIMENOrdering Facility: [facility] Address: [address] [place] [address] Performed By: #### 5 7021-8 ####[facility] LABCLIA [id number] [place] [address] [place] Neutrophils/100 WBC (Bld) 62.2 % Normal [facility] Comment on above: Order Comment: Speci men Type: BLOOD SPECIMENOrdering Facility: [facility] Address: [address] [place] [address] Performed By: #### 5 7021-8 ####[facility] LABCLIA [id number] [place] [address] [place] Nucleated RBC (Bld) [#/Vol] 10*3/uL Normal <0.01 [facility] Comment on above: Order Comment: Speci men Type: BLOOD SPECIMENOrdering Facility: [facility] Address: [address] [place] [address] Performed By: #### 5 7021-8 ####[facility] LABIA [id number] [place] [address] [place] Nucleated RBC/100 WBC (Bld) [Ratio] 0.0 /100 WBC Normal [facility] Comment on above: Order Comment: Speci men Type: BLOOD SPECIMENOrdering Facility: [facility] Address: [address] [place] [address] Performed By: #### 5 7021-8 ####[facility] LABIA [id number] [place] [address] [place] Platelet mean volume (Bld) [Entitic vol] 13.3 fL High 9.0-12.7 [facility] Comment on above: Order Comment: Speci men Type: BLOOD SPECIMENOrdering Facility: [facility] Address: [address] [place] [address] Performed By: #### 5 7021-8 ####[facility] LABIA [id number] [place] [address] [place] Platelets (Bld) [#/Vol] 209 10*3/uL Normal 150-400 [facility] Comment on above: Order Comment: Speci men Type: BLOOD SPECIMENOrdering Facility: [facility] Address: [address] [place] [address] Performed By: #### 5 7021-8 ####[facility] LABCLIA [id number] [place] [address] [place] RBC (Bld) [#/Vol] 4.33 10*6/uL Normal 3.90-5.20 [facility] Comment on above: Order Comment: Speci men Type: BLOOD SPECIMENOrdering Facility: [facility] Address: [address] [place] [address] Performed By: #### 5 7021-8 ####[facility] LABCLIA [id number] [place] [address] [place] WBC (Bld) [#/Vol] 7.49 10*3/uL Normal 3.70-11.00 [facility] Comment on above: Order Comment: Speci men Type: BLOOD SPECIMENOrdering Facility: [facility] Address: [address] [place] [address] Performed By: #### 5 7021-8 ####[facility] LABCLIA [id number] [place] [address] [place] Comprehensive metabolic 2000 panelon 11-05-2024 Albumin [Mass/Vol] 4.3 g/dL Normal 3.9-4.9 [facility] Comment on above: Order Comment: Speci men Type: BLOOD SPECIMENOrdering Facility: [facility] Address: [address] [place] [address] Performed By: #### 2 4323-8, 3040-3, 03572-1 ####[facility] LABCLIA [id number] [place] [address] [place] ALP [Catalytic activity/Vol] 123 U/L Normal 34-123 [facility] Comment on above: Order Comment: Speci men Type: BLOOD SPECIMENOrdering Facility: [facility] Address: [address] [place] [id number] Performed By: #### 2 4323-8, 3039-3, 64161-3 ####[facility] LABCLIA [id number] [place] [id number] [place] ALT [Catalytic activity/Vol] 19 U/L Normal 7-38 [facility] Comment on above: Order Comment: Speci men Type: BLOOD SPECIMENOrdering Facility: [facility] Address: [address] [place] [address] Performed By: #### 2 4323-8, 3, ####[facility] LABCLIA [id number] [place] [address] [place] Anion gap [Moles/Vol] 11 mmol/L Normal 8-15 [facility] Comment on above: Order Comment: Speci men Type: BLOOD SPECIMENOrdering Facility: [facility] Address: [address] [place] [id number] Performed By: #### 2 4323-8, 3, ####[facility] LABCLIA [id number] [place] [address] [place] AST [Catalytic activity/Vol] 20 U/L Normal 13-35 [facility] Comment on above: Order Comment: Speci men Type: BLOOD SPECIMENOrdering Facility: [facility] Address: [address] [place] [id number] Performed By: #### 2 4323-8, 3, 27816-6 ####[facility] LABCLIA [id number] [place] [id number] [place] Bilirubin [Mass/Vol] 0.5 mg/dL Normal 0.2-1.3 [facility] Comment on above: Order Comment: Speci men Type: BLOOD SPECIMENOrdering Facility: [facility] Address: [address] [place] [address] Performed By: #### 2 4323-8, 3039-3, 68576-9 ####[facility] LABCLIA [id number] [address] [address] [place] Calcium [Mass/Vol] 9.9 mg/dL Normal 8.5-10.2 [facility] Comment on above: Order Comment: Speci men Type: BLOOD SPECIMENOrdering Facility: [facility] Address: [address] [place] [address] Performed By: #### 2 4323-8, 3039-3, 93747-9 ####[facility] LABCLIA [id number] [address] [address] [place] Chloride [Moles/Vol] 103 mmol/L Normal 98-107 [facility] Comment on above: Order Comment: Speci men Type: BLOOD SPECIMENOrdering Facility: [facility] Address: [address] [place] [address] Performed By: #### 2 4323-8, 3, 65038-2 ####[facility] LABCLIA [id number] [place] [address] [place] CO2 [Moles/Vol] 24 mmol/L Normal 22-30 [facility] Comment on above: Order Comment: Speci men Type: BLOOD SPECIMENOrdering Facility: [facility] Address: [address] [place] [address] Performed By: #### 2 4323-8, 3, 77884-9 ####[facility] LABCLIA [id number] [address] [address] [place] Creatinine [Mass/Vol] 0.74 mg/dL Normal 0.58-0.96 [facility] Comment on above: Order Comment: Speci men Type: BLOOD SPECIMENOrdering Facility: [facility] Address: [address] [place] [address] Performed By: #### 2 4323-8, 3040-3, 33490-8 ####[facility] [facility] LABIA [id number] [place] [address] [place] Creatinine and Glomerular filtration rate.predicted panel (S/P/Bld) 80 mL/min/1.73m??? Normal >=60 [facility] Comment on above: Order Comment: Dayron stinson Type: BLOOD SPECIMENOrdering Facility: [facility] Address: [address] [place] [address] Result Comment: Kya mated Glomerular Filtration Rate [...] actual GFR. Performed By: #### 2 4323-8, 3040-3, 90012-8 ####[facility] LABIA [id number] [place] [address] [place] Glucose [Mass/Vol] 316 mg/dL High 74-99 [facility] Comment on above: Order Comment: Dayron stinson Type: BLOOD SPECIMENOrdering Facility: [facility] Address: [address] [place] [address] Result Comment: The [place] Diabetes Association (ADA) provides guidance for cutoff [...] Standards of Medical Care in Diabetes 2016, [place] Diabetes Association. Diabetes Care. 2016.39(Suppl 1). Performed By: #### 2 4323-8, 0-3, 48322-0 ####[facility] LABCLIA [id number] [address] [address] [place] Potassium [Moles/Vol] 4.4 mmol/L Normal 3.7-5.1 [facility] Comment on above: Order Comment: Speci men Type: BLOOD SPECIMENOrdering Facility: [facility] Address: [address] [place] [address] Performed By: #### 2 4323-8, 0-3, 98996-1 ####[facility] LABCLIA [id number] [place] [address] [place] Protein [Mass/Vol] 7.3 g/dL Normal 6.3-8.0 [facility] Comment on above: Order Comment: Speci men Type: BLOOD SPECIMENOrdering Facility: [facility] Address: [address] [place] [address] Performed By: #### 2 4323-8, 3039-3, 09869-0 ####[facility] LABCLIA [id number] [place] [address] [place] Sodium [Moles/Vol] 138 mmol/L Normal 136-144 [facility] Comment on above: Order Comment: Speci men Type: BLOOD SPECIMENOrdering Facility: [facility] Address: [address] [place], [place] [address] Performed By: #### 2 4323-8, 3039-3, 85546-7 ####[facility] LABCLIA [id number] [address] [address] [place] Urea nitrogen [Mass/Vol] 11 mg/dL Normal 7-21 [facility] Comment on above: Order Comment: Speci men Type: BLOOD SPECIMENOrdering Facility: [facility] Address: [address] [place], [place] [address] Performed By: #### 2 4323-8, 0-3, 45650-8 ####[facility] LABCLIA [id number] [place] [address] [place] HbA1c (Bld)on 11-05-2024 Average glucose Estimated from glycated hemoglobin (Bld) [Mass/Vol] 258 mg/dL Normal [facility] Comment on above: Order Comment: Dayron stinson Type: BLOOD SPECIMENOrdering Facility: [facility] Address: [address] [place] [address] Result Comment: eAG: (Estimated average glucose) is a calculated value from HgbA1c and is account retention representative of the average blood glucose level in the last 2-3 month period. Performed By: #### 5 5454-3 ####[facility] [id number] [address] STATES OF [facility] HbA1c (Bld) [Mass fraction] 10.6 % High 4.3-5.6 [facility] Comment on above: Order Comment: Dayron stinson Type: BLOOD SPECIMENOrdering Facility: [facility] Address: [address] [place] [address] Result Comment: Amer [place] Diabetes Association guidelines indicate that patients with HgbA1c in the range 5.7-6.4% are at increased risk for development of diabetes, and intervention by lifestyle modification may be beneficial. HgbA1c greater or equal to 6.5% is considered diagnostic of diabetes. Performed By: #### 5 5454-3 ####[facility] LABIA [id number] [place] [address] [place] Lipase SerPl-cCncon 11-05-19 25 Lipase [Catalytic activity/Vol] 123 U/L High 16-61 [facility] Comment on above: Order Comment: Dayron stinson Type: BLOOD SPECIMENOrdering Facility: [facility] Address: [address] [place] [address] Performed By: #### 2 4323-8, 3040-3, 34198-7 ####[facility] LABIA [id number] [place] [address] [place] Lipid 1996 panelon 5 Cholesterol [Mass/Vol] 139 mg/dL Normal <200 [facility] Comment on above: Order Comment: Speci men Type: BLOOD SPECIMENOrdering Facility: [facility] Address: [address] [place] [address] Result Comment: <200 mg/dL, Desirable 200-239 mg/dL, Borderline high>239 mg/dL, High Performed By: #### 2 4323-8, 3040-3, 06721-6 ####[facility] LABCLIA [id number] [address] Cholesterol in HDL [Mass/Vol] 56 mg/dL Normal >39 [facility] Comment on above: Order Comment: Speci men Type: BLOOD SPECIMENOrdering Facility: [facility] Address: [address] [place] [address] Result Comment: 40-5 9 mg/dL, Acceptable>59 mg/dL, High: Negative risk factor for coronary heart disease<40 mg/dL, Low: Positive risk factor for coronary heart disease Performed By: #### 2 4323-8, 3040-3, 07515-3 ####[facility] LABCLIA [id number] [address] Cholesterol in LDL [Mass/Vol] 64 mg/dL Normal <100 [facility] Comment on above: Order Comment: Speci men Type: BLOOD SPECIMENOrdering Facility: [facility] Address: [address] [place] [address] Result Comment: <100 mg/dL, Optimal 100-129 mg/dL, Near optimal/above optimal 130-159 mg/dL, Borderline high 160-189 mg/dL, High>189 mg/dL, Very highSecondary prevention optimal LDL Cholesterol levels are recommended to be < 70 mg/dL Performed By: #### 2 4323-8, 3040-3, 29087-1 ####[facility] LABCLIA [id number] [place] [id number] [facility] Cholesterol in LDL/Cholesterol in HDL [Mass ratio] 1.14 {ratio} Normal <2.54 [facility] Comment on above: Order Comment: Dayron shantell Type: BLOOD SPECIMENOrdering Facility: [facility] Address: [address] [place] [address] Result Comment: Conrad calle:1. National Cholesterol Education Program ATP III Guideline At-A-Glance Quick Desk Reference: National Heart, Lung, and Blood [place]. National Institutes of Health. 2001: NIH Publication No. 01-3305.2. An International Atherosclerosis Society position paper: global recommendations for the management of dyslipidemia: executive summary, Atherosclerosis. 2014: 232(2):410-413. Performed By: #### 2 4323-8, 3040-3, 21345-2 ####[facility] LABCLIA [id number] [place] [address] [place] Cholesterol in VLDL [Mass/Vol] 19 mg/dL Normal <30 [facility] Comment on above: Order Comment: Dayron shantell Type: BLOOD SPECIMENOrdering Facility: [facility] Address: [address] [place] [address] Performed By: #### 2 4323-8, 0-3, 06356-6 ####[facility] LABCLIA [id number] [place] [address] [place] Cholesterol non HDL [Mass/Vol] 83 mg/dL Normal <130 [facility] Comment on above: Order Comment: Elinorbertrand stinson Type: BLOOD SPECIMENOrdering Facility: [facility] Address: [address] [place] [address] Result Comment: <130 mg/dL, Optimal 130-159 mg/dL, Near optimal/above optimal 160-189 mg/dL, Borderline high 190-219 mg/dL, High>219 mg/dL, Very highSecondary prevention optimal non HDL Cholesterol levels are recommended to be <100 mg/dL Performed By: #### 2 4323-8, 3040-3, 96836-2 ####[facility] LABCLIA [id number] [place] [id number] Cholesterol.total/Chol esterol in HDL [Mass ratio] 2.48 {ratio} Normal <5.10 [facility] Comment on above: Order Comment: Speci men Type: BLOOD SPECIMENOrdering Facility: [facility] Address: [address] [place] [address] Performed By: #### 2 4323-8, 3040-3, 42345-8 ####[facility] LABCLIA [id number] [address] OF [facility] FASTING TIME 12 hrs Normal [facility] Comment on above: Order Comment: Speci men Type: BLOOD SPECIMENOrdering Facility: [facility] Address: [address] [place] [address] Performed By: #### 2 4323-8, 3040-3, 75874-3 ####[facility] LABCLIA [id number] [address] [place] Triglyceride [Mass/Vol] 96 mg/dL Normal <150 [facility] Comment on above: Order Comment: Speci men Type: BLOOD SPECIMENOrdering Facility: [facility] Address: [address] [place] [address] Result Comment: <150 mg/dL, Normal 150-199 mg/dL, Borderline high 200-499 mg/dL, High>499 mg/dL, Very high Performed By: #### 2 4323-8, 3040-3, 44158-9 ####[facility] LABCLIA [id number] [place] [id number] [place] XR CHEST 2V FRONTAL/LATon XR CHEST 2V FRONTAL/LAT Normal [facility] XR Chest PA and Lateralon IMPRESSION: No acute radiographic abnormality. Program Engagement Director: AMBER Transcribe Date/Time: Nov 05 2024 12:03P Dictated by : VELASQUEZ BENTON MD This examination was interpreted and the report reviewed and electronically signed by: VELASQUEZ BENTON MD on Nov 05 2024 12:05PM [facility] DIVISION OF RADIOLOGY * * *Final Report* [...] soft tissues: Unremarkable. DIVISION OF RADIOLOGY Provider, [facility] - 11/05/2024 * * *Final Report* [...] Unremarkable. IMPRESSION IMPRESSION: No acute radiographic abnormality. Program Engagement Director: PSCB Transcribe Date/Time: Nov 05 2024 12:03P Dictated by : VELASQUEZ BENTON MD This examination was interpreted and the report reviewed and electronically signed by: VELASQUEZ BENTON MD on Nov 05 2024 12:05PM EST [facility] Radiology Study observation (narrative) [facility] XR Chest PA and LateralOrder ed By: Cc Provider on 11-05-2024 [facility] CNOVon 11-04-2024 CNOV Normal [facility] CNOVon 10-13-2024 CNOV Normal [facility] PT D/C Summary (1)on 024 PT D/C Summary (1) [facility] Physical Therapy [facility] [address] [place] [address] / REHABILITATION SERVICES DISCHARGE SUMMARY MR#: [id number] Acct: [id number] Name: TELMA TINEO Rep #: [id number] : 1940 84 From: Zeke Miguel PT, Cert. T, OCS Referring Dr.: Dr. Henok Martinez MD Status: REG RCR Insurance: [employer] MEDICARE HMO [employer]AN Discharge Summary [...] please feel free to call me at [phone]. Thank you for the referral of this patient. Sincerely, Zeke Miguel, PT, Cert MDT, OCS Balance/Gait/Functional tests Balance/Special Test Scores Oswestry Neck Score: 23 Improvement % Improvement: 90 09/17/24 1713 CC: Dr. Henok Martinez MD JLA Signed Normal [facility] XR Ribs - right Views and [facility] 06-11-2024 IMPRESSION: No acute findings. Program Engagement Director: AMBER Transcribe Date/Time: Jun 11 2024 6:48A Dictated by : CHANEL NARAYANAN MD This examination was interpreted and the report reviewed and electronically signed by: CHANEL NARAYANAN MD on Jun 11 2024 6:49AM [facility] OF RAD[facility]OLOG[facility] * * *Final Report* [...] destruction. - IMPRESSION IMPRESSION: No acute findings. Program Engagement Director: PSCB Transcribe Date/Time: Jun 11 2024 6:48A Dictated by : CHANEL NARAYANAN MD This examination was interpreted and the report reviewed and electronically signed by: CHANEL NARAYANAN MD on Jun 11 2024 6:49AM EST [facility] XR Ribs - right Views and Ch est PAOrdered By: Ccf Provider on [facility]-11-20[facility] - right Views and Ch est PAon 06-06-2024 Radiology Study observation (narrative) [facility] XR Chest PA and Lateralon IMPRESSION: No acute radiographic abnormality. Program Engagement Director: PSCB Transcribe Date/Time: May 05 2024 7:52A [...] unchanged. No pneumothorax. DIVISION OF RADIOLOGY [facility] * * *Final Report* [...] pneumothorax. IMPRESSION IMPRESSION: No acute radiographic abnormality. Program Engagement Director: AMBER Transcribe Date/Time: May 05 2024 7:52A Dictated by : NANCY CLARKE MD This examination was interpreted and the report reviewed and electronically signed by: NANCY CLARKE MD on May 05 2024 7:52AM EST [facility] XR Chest PA and LateralOrder ed By: Ccf Provider on 05-05-2024 [facility] XR Chest PA and Lateralon Radiology Study observation (narrative) [facility] XR Chest PA and Lateralon IMPRESSION: Questionable lung nodules. Consider short-term follow-up. Program Engagement Director: AMBER Transcribe Date/Time: Mar 05 2024 5:02P Dictated by : ZULLY CEDENO MD This examination was interpreted and the report reviewed and electronically signed by: ZULLY CEDENO MD on Mar 05 2024 5:03PM [facility] OF RADIOLOG[facility] * * *Final Report* [...] shows degenerative changes. DIVISION OF RADIOLOGY Provider, [facility] - 03/05/2024 * * *Final Report* [...] IMPRESSION: Questionable lung nodules. Consider short-term follow-up. Program Engagement Director: PSCB Transcribe Date/Time: Mar 05 2024 5:02P Dictated by : ZULLY CEDENO MD This examination was interpreted and the report reviewed and electronically signed by: ZULLY CEDENO MD on Mar 05 2024 5:03PM EST [facility] XR Chest PA and LateralOrder ed By: Ccf Provider on 03-05-2024 [facility] XR Chest PA and Lateralon Radiology Study observation (narrative) [facility] Absolute lymphocyte countOrd ered By: Gabe Foster on 02-25-2024 Lymphocytes Auto (Unsp spec) [#/Vol] 0.73 10*3/uL 0.83-4.51 [facility] Automated lymphocyte count a s percentage of total leukocytesOrdered By: Gabe Foster on 02-25-2024 Lymphocytes/100 WBC Auto (Unsp spec) 9.0 % 19-41 [facility] Basophil percentageOrdered B y: Gabe Foster on 02-25-2024 Basophil percentage 0 SEEN /hpf 0-5 [facility] Basophils/100 WBC (Bld) 0.4 % 0-1 [facility] Chloride [Moles/Vol] 97 mmol/L 98-107 [facility] Eosinophils/100 WBC (Bld) 0.2 % 0-5 [facility] Glucose [Mass/Vol] 270 mg/dL 74-106 [facility] Comment on above: Glucose result great er than or equal to 200 mg/dLsuggests DIABETES MELLITUS per A.D.A. criteria. Hemoglobin (Bld) [Mass/Vol] 12.5 g/dL 12.0-15.0 [facility] Monocytes/100 WBC (Bld) 13.1 % 0-10 [facility] Neutrophils (Bld) [#/Vol] 6.2 10*3/uL 2.0-7.7 [facility] Neutrophils/100 WBC (Bld) 76.3 % 47-70 [facility] Potassium [Moles/Vol] 3.8 mmol/L 3.5-5.1 [facility] Sodium [Moles/Vol] 129 mmol/L 136-145 [facility] WBC (Bld) [#/Vol] 8.1 10*3/uL 4.4-11.0 [facility] Bilirubin Test strip Ql (U)O rdered By: Gabe Foster on 02-25-2024 Bilirubin Ql (U) Negative Negative [facility] Determination of erythrocyte mean corpuscular volume (MCV)Ordered By: Gabe Foster on 02-25-2024 MCV (RBC) [Entitic vol] 87.9 fL 81-99 [facility] Erythrocyte distribution wid th ratioOrdered By: Gabe Foster on 02-25-2024 Erythrocyte distribution width (RBC) [Ratio] 12.9 % 11.6-14.6 [facility] Erythrocyte distribution wid th standard deviationOrdered By: Gabe Foster on 02-25-2024 Erythrocyte distribution width (RBC) [Entitic vol] 41.6 fL 35.1-43.9 [facility] Hematocrit Auto (Bld) [Volum e fraction]Ordered By: Gabe Foster on 02-25-2024 Hematocrit (Bld) [Volume fraction] 37.7 % 37-47 [facility] Immature granulocytes/100 WB C Auto (Bld)Ordered By: Gabe Foster on 02-25-2024 Immature granulocytes/100 WBC (Bld) 1.000 % 0.0-0.9 [facility] Comment on above: IG% - Immature Granu locytes (promyelocytes, myelocytes and metamyelocytes) > 1% indicates that a LEFT SHIFT is Present. Ketones Test strip Ql (U)Ord ered By: Gabe Foster on 02-25-2024 Ketones Ql (U) Negative Negative [facility] Laboratory - Chemistry and C hemistry - challengeOrdered By: Gabe Foster on 02-25-2024 CO2 [Moles/Vol] 24.0 mmol/L 21.0-32.0 [facility] Urea nitrogen/Creatinine [Mass ratio] 6.0 mg/mg 10-20 [facility] - Hematology and Cell countsOrdered By: Gabe Foster on 02-25-2024 MCH (RBC) [Entitic mass] 29.1 pg 27.0-32.0 [facility] MCHC (RBC) [Mass/Vol] 33.2 g/dL 32-36 [facility] Nucleated RBC/100 WBC (Bld) [Ratio] 0 % 0-5 [facility] Platelet mean volume (Bld) [Entitic vol] 12.7 fL 6.2-12.0 [facility] Platelets (Bld) [#/Vol] 224 10*3/uL 150-450 [facility] Mucus LM Ql (Urine sed)Order ed By: Gabe Foster on 02-25-2024 Mucus Ql (Urine sed) 0 SEEN /hpf [facility] Nitrite Test strip Ql (U)Ord ered By: Gabe Foster on 02-25-2024 Nitrite Ql (U) Negative Negative [facility] No Panel InformationOrdered By: Gabe Foster on 02-25-2024 Estimated Creatinine Clearance Calc 32.73 ml/min [facility] Estimated GFR (MDRD) Amer 57 mL/min >60 [facility] Comment on above: GFR Calc Estimated GFR (MDRD) Non-Af Amer 47 mL/min >60 [facility] Comment on above: Non- GFR Calc Urine RBC 0 SEEN /hpf 0-5 [facility] Protein Test strip Ql (U)Ord ered By: Gabe Foster on 02-25-2024 Protein Ql (U) 30 mg/dl Negative [facility] RBC Auto (Bld) [#/Vol]Ordere d By: Gabe Foster on 02-25-2024 RBC (Bld) [#/Vol] 4.29 10*6/uL 4.2-5.4 [facility] Serum or plasma calcium froylan urement (mass/volume)Ordered By: Gabe Foster on 02-25-2024 Calcium [Mass/Vol] 9.1 mg/dL 8.5-10.[address] [facility] [place] or plasma creatinine m easurement (mass/volume)Ordered By: Gabe Foster on 02-25-2024 Creatinine [Mass/Vol] 1.16 mg/dL 0.55-1.02 [facility] Comment on above: The validity of the calculated GFR & GFRAA in patients over 70 years has not been determined. Clinical correlation is essential. Serum or plasma urea nitroge n measurement (mass/volume)Ordered By: Gabe Foster on 02-25-2024 Urea nitrogen [Mass/Vol] 7 mg/dL 7-18 [facility] Squamous epithelial cells de tection in urine sediment by light microscopyOrdered By: Gabe Foster on 02-25-2024 Epithelial cells.squamous LM Ql (Urine sed) 0 SEEN /hpf 5-10 [facility] Thin prep Papanicolaou smear with manual screeningOrdered By: Gabe Foster on 02-25-2024 Thin prep Papanicolaou smear with manual screening 8 5-15 [facility] Urine blood detectionOrdered By: Gabe Foster on 02-25-2024 RBC Ql (U) 25 /ul Negative [facility] Urine clarityOrdered By: Hermilo Foster on 02-25-2024 Clarity (U) Clear Clear [facility] Urine color determinationOrd ered By: Gabe Foster on 02-25-2024 Color (U) Yellow Yellow [facility] Urine glucose detectionOrder ed By: Gabe Foster on 02-25-2024 Glucose Ql (U) 1000 mg/dl Normal [facility] Urine leukocyte esterase det ection by dipstickOrdered By: Gabe Foster on 02-25-2024 Leukocyte esterase Test strip Ql (U) Negative Negative [facility] Urine pHOrdered By: Gabe loyd on 02-25-2024 pH (U) 7.0 [pH] 5.0 - 8.0 [facility] Urine sediment bacteria coun t by microscopy (number/high power field)Ordered By: Gabe Foster on 02-25-2024 Bacteria LM.HPF (Urine sed) [#/Area] 0 /[HPF] None Seen [facility] Urine specific gravity measu rementOrdered By: Gabe Foster on 02-25-2024 Specific gravity (U) [Rel density] 1.005 1.002-1.030 [facility] Urine urobilinogen measureme ntOrdered By: Gabe Foster on 02-25-2024 Urobilinogen Ql (U) Normal mg/dl Normal [facility] COVID & INFLUENZA A/B & RSV NAAT, ROUTINEon 02-19-2024 FLUAV RNA GUNNER+probe Ql (Unsp spec) Not detected Not Detected [facility] FLUBV RNA GUNNER+probe Ql (Unsp spec) Not detected Not Detected [facility] Interpretation and review of laboratory results Normal [facility] RSV A RNA GUNNER+probe Ql (Unsp spec) Not detected Not Detected [facility] SARS-CoV-2 (COVID-19) RNA GUNNER+probe Ql (Resp) Not detected See comment [facility] Comment on above: The method used is R T-PCR or an equivalent NAAT method. Reference Range (the expected result in uninfected individuals): Not detected For upper respirator y tract samples, this test has been authorized by FDA under Emergenecy Use Authorization (EUA). For lower respiratory tract samples, this test was developed and its performance characteristics determined by [facility]'s [facility] ([facility]). It has not been cleared or approved by the FDA. [facility] is regulated under CLIA as qualified to perform high-complexity testing. This test is used for clinical purposes. It should not be regarded as investigational or for research. Test performed by [facility], [facility] [place], [address] [place] [address]. [facility] STREP A MOLECULAR (POC)on Procedural Control Valid [facility] Strep A (POCT) Negative Negative [facility] CBC W Auto Differential pane l (Bld)on 02-07-2024 Basophils (Bld) [#/Vol] 0.03 10*3/uL <0.11 k/uL [facility] Basophils/100 WBC (Bld) 0.2 % [facility] Differential cell count method Nom (Bld) Auto [facility] Eosinophils (Bld) [#/Vol] 0.12 10*3/uL <0.46 k/uL [facility] Eosinophils/100 WBC (Bld) 0.9 % [facility] Erythrocyte distribution width (RBC) [Ratio] 13.2 % 11.5 - 15.0 % [facility] Hematocrit (Bld) [Volume fraction] 38.2 % 36.0 - 46.0 % [facility] Hemoglobin (Bld) [Mass/Vol] 12.6 g/dL 11.5 - 15.5 g/dL [facility] Immature granulocytes (Bld) [#/Vol] 0.04 10*3/uL <0.10 k/uL [facility] Immature granulocytes/100 WBC (Bld) 0.3 % [facility] Lymphocytes (Bld) [#/Vol] 0.88 10*3/uL Low 1.00 - 4.00 k/uL [facility] Lymphocytes/100 WBC (Bld) 6.4 % [facility] MCH (RBC) [Entitic mass] 29.1 pg 26.0 - 34.0 pg [facility] MCHC (RBC) [Mass/Vol] 33.0 g/dL 30.5 - 36.0 g/dL [facility] MCV (RBC) [Entitic vol] 88.2 fL 80.0 - 100.0 fL [facility] Monocytes (Bld) [#/Vol] 1.00 10*3/uL High <0.87 k/uL [facility] Monocytes/100 WBC (Bld) 7.2 % [facility] Neutrophils (Bld) [#/Vol] 11.75 10*3/uL High 1.45 - 7.50 k/uL [facility] Neutrophils/100 WBC (Bld) 85.0 % [facility] Nucleated RBC (Bld) [#/Vol] <0.01 k/uL [facility] Nucleated RBC/100 WBC (Bld) [Ratio] 0.0 /100 WBC [facility] Platelet mean volume (Bld) [Entitic vol] 12.8 fL High 9.0 - 12.7 fL [facility] Platelets (Bld) [#/Vol] 189 10*3/uL 150 - 400 k/uL [facility] RBC (Bld) [#/Vol] 4.33 10*6/uL 3.90 - 5.2 0 m/uL [facility] [facility] WBC (Bld) [#/Vol] 13.82 10*3/uL High 3.70 - 11.00 k/uL [facility] Comprehensive metabolic 2000 panelon 02-07-2024 Albumin [Mass/Vol] 4.2 g/dL 3.9 - 4.9 g/dL [facility] ALP [Catalytic activity/Vol] 111 U/L 34 - 123 U/L [facility] ALT [Catalytic activity/Vol] 24 U/L 7 - 38 U/L [facility] Anion gap [Moles/Vol] 8 mmol/L Low 9 - 18 mmol/L [facility] AST [Catalytic activity/Vol] 19 U/L 13 - 35 U/L [facility] Bilirubin [Mass/Vol] 0.5 mg/dL 0.2 - 1 .3 mg/dL [facility] Calcium [Mass/Vol] 9.8 mg/dL 8.5 - 10. 2 mg/dL [facility] Chloride [Moles/Vol] 102 mmol/L 97 - 10 5 mmol/L [facility] CO2 [Moles/Vol] 26 mmol/L 22 - 30 mmol/L [facility] Creatinine [Mass/Vol] 0.79 mg/dL 0.58 - 0.96 mg/dL [facility] Estimated Glomerular Filtration Rate 74 mL/min/1.73m >=60 mL/min/1.73 m [facility] Glucose [Mass/Vol] 302 mg/dL High 74 - 99 mg/dL [facility] Potassium [Moles/Vol] 4.7 mmol/L 3.7 - 5.1 mmol/L [facility] Protein [Mass/Vol] 7.3 g/dL 6.3 - 8.0 g/dL [facility] Sodium [Moles/Vol] 136 mmol/L 136 - 144 mmol/L [facility] Urea nitrogen [Mass/Vol] 15 mg/dL 7 - 21 mg/dL [facility] Basophil percentageOrdered B y: Jatinder Khan on 10-04-2023 Basophil percentage < 1.0 mg/dL 0.55-1.02 [facility] No Panel InformationOrdered By: Jatinder Khan on 10-04-2023 Bedside Estimated GFR (eGFR) > 60.0000 mL/min >60 [facility] Basophil percentageOrdered B y: Jatinder Khan on 06-19-2023 Bilirubin [Mass/Vol] 0.50 mg/dL 0.20-1.00 [facility] Comment on above: For patients on eltr ombopag therapy, use of Dimension [place] TBIL is not recommended. Chloride [Moles/Vol] 109 mmol/L 98-107 [facility] Glucose [Mass/Vol] 173 mg/dL 74-106 [facility] Comment on above: Fasting Glucose resu lt greater than or equal to 126 mg/dL suggests DIABETES MELLITUS per A.D.A. criteria. Potassium [Moles/Vol] 4.3 mmol/L 3.5-5.1 [facility] Protein [Mass/Vol] 7.2 g/dL 6.4-8.2 [facility] Sodium [Moles/Vol] 142 mmol/L 136-145 [facility] Laboratory - Chemistry and C hemistry - challengeOrdered By: Jatinder Khan on 06-19-2023 ALP [Catalytic activity/Vol] 101 U/L 45-117 [facility] ALT [Catalytic activity/Vol] 59 U/L 13-56 [facility] CO2 [Moles/Vol] 29.0 mmol/L 21.0-32.0 [facility] Globulin (S) [Mass/Vol] 3.4 g/dL 2.2-4.2 [facility] Urea nitrogen/Creatinine [Mass ratio] 11.7 mg/mg 10-20 [facility] No Panel InformationOrdered By: Jatinder Khan on 06-19-2023 Estimated GFR (MDRD) Amer 73 mL/min >60 [facility] Comment on above: GFR Calc Estimated GFR (MDRD) Non-Af Amer 61 mL/min >60 [facility] Comment on above: Non- GFR Calc Thyroid Stimulating Hormone (TSH) 3.62 uIU/mL 0.358-3.74 [facility] Serum or plasma albumin froylan urement (mass/volume)Ordered By: Jatinder Khan on 06-19-2023 Albumin [Mass/Vol] 3.8 g/dL 3.2-5.0 [facility] Serum or plasma albumin/glob ulin mass ratioOrdered By: Jatinder Khan on 06-19-2023 Albumin/Globulin [Mass ratio] 1.1 {ratio} 0.9-2.4 [facility] Serum or plasma calcium froylan urement (mass/volume)Ordered By: Jatinder Khan on 06-19-2023 Calcium [Mass/Vol] 9.4 mg/dL 8.5-10.1 [facility] Serum or plasma creatinine m easurement (mass/volume)Ordered By: Jatinder Khan on 06-19-2023 Creatinine [Mass/Vol] 0.94 mg/dL 0.55-1.02 [facility] Comment on above: The validity of the calculated GFR & GFRAA in patients over 70 years has not been determined. Clinical correlation is essential. Serum or plasma urea nitroge n measurement (mass/volume)Ordered By: Jatinder Khan on 06-19-2023 Urea nitrogen [Mass/Vol] 11 mg/dL 7-18 [facility] Thin prep Papanicolaou smear with manual screeningOrdered By: Jatinder Khan on 06-19-2023 Thin prep Papanicolaou smear with manual screening 19 U/L 15-37 [facility] Thin prep Papanicolaou smear with manual screening 4 5-15 [facility] Absolute lymphocyte countOrd ered By: Dr. Foster on 04-22-2023 Lymphocytes Auto (Unsp spec) [#/Vol] 1.77 10*3/uL 0.83-4.51 [facility] Basophil percentageOrdered B y: Dr. Foster on 04-22-2023 Basophils/100 WBC (Bld) 0.4 % 0-1 [facility] Bilirubin [Mass/Vol] 0.50 mg/dL 0.20-1.00 [facility] Comment on above: For patients on eltr ombopag therapy, use of Dimension [place] TBIL is not recommended. Chloride [Moles/Vol] 106 mmol/L 98-107 [facility] Eosinophils/100 WBC (Bld) 2.2 % 0-5 [facility] Glucose [Mass/Vol] 125 mg/dL 74-106 [facility] Comment on above: Fasting Glucose resu lt from 100 to 125 mg/dL suggests IMPAIRED HOMEOSTASIS per A.D.A. criteria. Neutrophils (Bld) [#/Vol] 5.0 10*3/uL 2.0-7.7 [facility] Neutrophils/100 WBC (Bld) 65.0 % 47-70 [facility] Potassium [Moles/Vol] 4.1 mmol/L 3.5-5.1 [facility] Protein [Mass/Vol] 6.9 g/dL 6.4-8.2 [facility] Sodium [Moles/Vol] 139 mmol/L 136-145 [facility] WBC (Bld) [#/Vol] 7.7 10*3/uL 4.4-11.0 [facility] Blood erythrocytes count (nu mber/volume)Ordered By: Dr. Foster on 04-22-2023 RBC (Bld) [#/Vol] 4.02 10*6/uL 4.2-5.4 [facility] Blood hemoglobin measurement (mass/volume)Ordered By: Dr. Foster on 04-22-2023 Hemoglobin (Bld) [Mass/Vol] 11.6 g/dL 12.0-15.0 [facility] Blood lymphocytes/100 leukoc ytesOrdered By: Dr. Foster on 04-22-2023 Lymphocytes/100 WBC (Bld) 23.0 % 19-41 [facility] Blood monocytes/100 leukocyt esOrdered By: Dr. Foster on 04-22-2023 Monocytes/100 WBC (Bld) 9.0 % 0-10 [facility] Blood platelet mean volumeOr dered By: Dr. Foster on 04-22-2023 Platelet mean volume (Bld) [Entitic vol] 12.7 fL 6.2-12.0 [facility] Determination of erythrocyte mean corpuscular volume (MCV)Ordered By: Dr. Foster on 04-22-2023 MCV (RBC) [Entitic vol] 90.3 fL 81-99 [facility] Hematocrit Auto (Bld) [Volum e fraction]Ordered By: Dr. Foster on 04-22-2023 Hematocrit (Bld) [Volume fraction] 36.3 % 37-47 [facility] Laboratory - Chemistry and C hemistry - challengeOrdered By: Dr. Foster on 04-22-2023 ALP [Catalytic activity/Vol] 102 U/L 45-117 [facility] ALT [Catalytic activity/Vol] 61 U/L 13-56 [facility] CO2 [Moles/Vol] 27.0 mmol/L 21.0-32.0 [facility] Globulin (S) [Mass/Vol] 3.3 g/dL 2.2-4.2 [facility] Urea nitrogen/Creatinine [Mass ratio] 13.2 mg/mg 10-20 [facility] Laboratory - Hematology and Cell countsOrdered By: Dr. Foster on 04-22-2023 Erythrocyte distribution width (RBC) [Entitic vol] 43.6 fL 35.1-43.9 [facility] Erythrocyte distribution width (RBC) [Ratio] 13.2 % 11.6-14.6 [facility] Immature granulocytes/100 WBC (Bld) 0.400 % 0.0-0.9 [facility] Comment on above: IG% - Immature Granu locytes (promyelocytes, myelocytes and metamyelocytes) > 1% indicates that a LEFT SHIFT is Present. MCH (RBC) [Entitic mass] 28.9 pg 27.0-32.0 [facility] Nucleated RBC/100 WBC (Bld) [Ratio] 0 % 0-5 [facility] MCHC Auto (RBC) [Mass/Vol]Or dered By: Dr. Foster on 04-22-2023 MCHC (RBC) [Mass/Vol] 32.0 g/dL 32-36 [facility] No Panel InformationOrdered By: Dr. Fsoter on 04-22-2023 Estimated Creatinine Clearance Calc 37.54 ml/min [facility] Estimated GFR (MDRD) Amer 84 mL/min >60 [facility] Comment on above: GFR Calc Estimated GFR (MDRD) Non-Af Amer 70 mL/min >60 [facility] Comment on above: Non- GFR Calc Troponin I High Sensitivity 52 pg/mL 3.0-54.0 [facility] Comment on above: Please Note: New Nicko t Units and Gender Specific Reference Ranges. For more information see Policy Stat Procedure [place] High Sensitivity Troponin (TNIH) and attachments. Platelets bldOrdered By: Dr. Foster on 04-22-2023 Platelets (Bld) [#/Vol] 181 10*3/uL 150-450 [facility] Serum or plasma albumin froylan urement (mass/volume)Ordered By: Dr. Foster on 04-22-2023 Albumin [Mass/Vol] 3.6 g/dL 3.2-5.0 [facility] Serum or plasma albumin/glob ulin mass ratioOrdered By: Dr. Foster on 04-22-2023 Albumin/Globulin [Mass ratio] 1.1 {ratio} 0.9-2.4 [facility] Serum or plasma calcium froylan urement (mass/volume)Ordered By: Dr. Foster on 04-22-2023 Calcium [Mass/Vol] 9.5 mg/dL 8.5-10.1 [facility] Serum or plasma creatinine m easurement (mass/volume)Ordered By: Dr. Foster on 04-22-2023 Creatinine [Mass/Vol] 0.83 mg/dL 0.55-1.02 [facility] Comment on above: The validity of the calculated GFR & GFRAA in patients over 70 years has not been determined. Clinical correlation is essential. Serum or plasma urea nitroge n measurement (mass/volume)Ordered By: Dr. Foster on 04-22-2023 Urea nitrogen [Mass/Vol] 11 mg/dL 7-18 [facility] Thin prep Papanicolaou smear with manual screeningOrdered By: Dr. Foster on 04-22-2023 Thin prep Papanicolaou smear with manual screening 40 U/L 15-37 [facility] Thin prep Papanicolaou smear with manual screening 6 5-15 [facility] Absolute lymphocyte countOrd ered By: Dr. Velazco on 04-05-2023 Lymphocytes Auto (Unsp spec) [#/Vol] 1.78 10*3/uL 0.83-4.51 [facility] Basophil percentageOrdered B y: Dr. Velazco on 04-05-2023 Basophils/100 WBC (Bld) 0.6 % 0-1 [facility] Chloride [Moles/Vol] 104 mmol/L 98-107 [facility] Eosinophils/100 WBC (Bld) 2.3 % 0-5 [facility] Glucose [Mass/Vol] 303 mg/dL 74-106 [facility] Comment on above: Glucose result great er than or equal to 200 mg/dLsuggests DIABETES MELLITUS per A.D.A. criteria. Neutrophils (Bld) [#/Vol] 4.6 10*3/uL 2.0-7.7 [facility] Neutrophils/100 WBC (Bld) 63.5 % 47-70 [facility] Potassium [Moles/Vol] 3.9 mmol/L 3.5-5.1 [facility] Comment on above: Slight Hemolysis, Re sult may be falsely increased. Sodium [Moles/Vol] 136 mmol/L 136-145 [facility] WBC (Bld) [#/Vol] 7.2 10*3/uL 4.4-11.0 [facility] Blood erythrocytes count (nu mber/volume)Ordered By: Dr. Velazco on 04-05-2023 RBC (Bld) [#/Vol] 4.11 10*6/uL 4.2-5.4 [facility] Blood hemoglobin measurement (mass/volume)Ordered By: Dr. Velazco on 04-05-2023 Hemoglobin (Bld) [Mass/Vol] 12.0 g/dL 12.0-15.0 [facility] Blood lymphocytes/100 leukoc ytesOrdered By: Dr. Velazco on 04-05-2023 Lymphocytes/100 WBC (Bld) 24.6 % 19-41 [facility] Blood monocytes/100 leukocyt esOrdered By: Dr. Velazco on 04-05-2023 Monocytes/100 WBC (Bld) 8.6 % 0-10 [facility] Blood platelet mean volumeOr dered By: Dr. Velazco on 04-05-2023 Platelet mean volume (Bld) [Entitic vol] 12.9 fL 6.2-12.0 [facility] Determination of erythrocyte mean corpuscular volume (MCV)Ordered By: Dr. Velazco on 04-05-2023 MCV (RBC) [Entitic vol] 91.2 fL 81-99 [facility] Hematocrit Auto (Bld) [Volum e fraction]Ordered By: Dr. Velazco on 04-05-2023 Hematocrit (Bld) [Volume fraction] 37.5 % 37-47 [facility] Laboratory - Chemistry and C hemistry - challengeOrdered By: Dr. Velazco on 04-05-2023 CO2 [Moles/Vol] 24.0 mmol/L 21.0-32.0 [facility] Urea nitrogen/Creatinine [Mass ratio] 12.0 mg/mg 10-20 [facility] Laboratory - Hematology and Cell countsOrdered By: Dr. Velazco on 04-05-2023 Erythrocyte distribution width (RBC) [Entitic vol] 44.4 fL 35.1-43.9 [facility] Erythrocyte distribution width (RBC) [Ratio] 13.3 % 11.6-14.6 [facility] Immature granulocytes/100 WBC (Bld) 0.400 % 0.0-0.9 [facility] Comment on above: IG% - Immature Granu locytes (promyelocytes, myelocytes and metamyelocytes) > 1% indicates that a LEFT SHIFT is Present. MCH (RBC) [Entitic mass] 29.2 pg 27.0-32.0 [facility] Nucleated RBC/100 WBC (Bld) [Ratio] 0 % 0-5 [facility] MCHC Auto (RBC) [Mass/Vol]Or dered By: Dr. Velazco on 04-05-2023 MCHC (RBC) [Mass/Vol] 32.0 g/dL 32-36 [facility] No Panel InformationOrdered By: Dr. Velazco on 04-05-2023 Estimated Creatinine Clearance Calc 28.85 ml/min [facility] Estimated GFR (MDRD) Amer 62 mL/min >60 [facility] Comment on above: GFR Calc Estimated GFR (MDRD) Non-Af Amer 52 mL/min >60 [facility] Comment on above: Non- GFR Calc Troponin I High Sensitivity 38 pg/mL 3.0-54.0 [facility] Comment on above: Please Note: New Nicko t Units and Gender Specific Reference Ranges. For more information see Policy Stat Procedure [place] High Sensitivity Troponin (TNIH) and attachments. Platelets bldOrdered By: Dr. Velazco on 04-05-2023 Platelets (Bld) [#/Vol] 228 10*3/uL 150-450 [facility] Serum or plasma calcium froylan urement (mass/volume)Ordered By: Dr. Velazco on 04-05-2023 Calcium [Mass/Vol] 9.3 mg/dL 8.5-10.1 [facility] Serum or plasma creatinine m easurement (mass/volume)Ordered By: Dr. Velazco on 04-05-2023 Creatinine [Mass/Vol] 1.08 mg/dL 0.55-1.02 [facility] Comment on above: The validity of the calculated GFR & GFRAA in patients over 70 years has not been determined. Clinical correlation is essential. Serum or plasma urea nitroge n measurement (mass/volume)Ordered By: Dr. Velazco on 04-05-2023 Urea nitrogen [Mass/Vol] 13 mg/dL 7-18 [facility] Thin prep Papanicolaou smear with manual screeningOrdered By: Dr. Velazco on 04-05-2023 Thin prep Papanicolaou smear with manual screening 8 5-15 [facility] Absolute lymphocyte countOrd ered By: ED PROVIDER on 03-30-2023 Lymphocytes Auto (Unsp spec) [#/Vol] 2.60 10*3/uL 0.83-4.51 [facility] Basophil percentageOrdered B y: ED PROVIDER on 03-30-2023 Basophils/100 WBC (Bld) 0.6 % 0-1 [facility] Chloride [Moles/Vol] 108 mmol/L 98-107 [facility] Eosinophils/100 WBC (Bld) 0.9 % 0-5 [facility] Glucose [Mass/Vol] 100 mg/dL 74-106 [facility] Comment on above: Fasting Glucose resu lt from 100 to 125 mg/dL suggests IMPAIRED HOMEOSTASIS per A.D.A. criteria. Neutrophils (Bld) [#/Vol] 7.1 10*3/uL 2.0-7.7 [facility] Neutrophils/100 WBC (Bld) 66.8 % 47-70 [facility] Potassium [Moles/Vol] 3.5 mmol/L 3.5-5.1 [facility] Sodium [Moles/Vol] 143 mmol/L 136-145 [facility] WBC (Bld) [#/Vol] 10.6 10*3/uL 4.4-11.0 [facility] Blood erythrocytes count (nu mber/volume)Ordered By: ED PROVIDER on 03-30-2023 RBC (Bld) [#/Vol] 4.76 10*6/uL 4.2-5.4 [facility] Blood hemoglobin measurement (mass/volume)Ordered By: ED PROVIDER on 03-30-2023 Hemoglobin (Bld) [Mass/Vol] 14.1 g/dL 12.0-15.0 [facility] Blood lymphocytes/100 leukoc ytesOrdered By: ED PROVIDER on 03-30-2023 Lymphocytes/100 WBC (Bld) 24.5 % 19-41 [facility] Blood monocytes/100 leukocyt esOrdered By: ED PROVIDER on 03-30-2023 Monocytes/100 WBC (Bld) 6.9 % 0-10 [facility] Blood platelet mean volumeOr dered By: ED PROVIDER on 03-30-2023 Platelet mean volume (Bld) [Entitic vol] 9.2 fL 6.2-12.0 [facility] Determination of erythrocyte mean corpuscular volume (MCV)Ordered By: ED PROVIDER on 03-30-2023 MCV (RBC) [Entitic vol] 91.6 fL 81-99 [facility] Hematocrit Auto (Bld) [Volum e fraction]Ordered By: ED PROVIDER on 03-30-2023 Hematocrit (Bld) [Volume fraction] 43.6 % 37-47 [facility] INR in Blood by Coagulation assayOrdered By: ED PROVIDER on 03-30-2023 INR Coag (Bld) [Relative time] 1.0 {INR} [facility] Laboratory - Chemistry and C hemistry - challengeOrdered By: ED PROVIDER on 03-30-2023 CO2 [Moles/Vol] 27.0 mmol/L 21.0-32.0 [facility] Urea nitrogen/Creatinine [Mass ratio] 19.0 mg/mg 10-20 [facility] Laboratory - CoagulationOrde red By: ED PROVIDER on 03-30-2023 aPTT Coag (Bld) [Time] 28.1 s 24.1-36.2 [facility] PT Coag (PPP) [Time] 13.2 s 11.7-14.9 [facility] Laboratory - Hematology and Cell countsOrdered By: ED PROVIDER on 03-30-2023 Erythrocyte distribution width (RBC) [Entitic vol] 42.2 fL 35.1-43.9 [facility] Erythrocyte distribution width (RBC) [Ratio] 12.5 % 11.6-14.6 [facility] Immature granulocytes/100 WBC (Bld) 0.300 % 0.0-0.9 [facility] Comment on above: IG% - Immature Granu locytes (promyelocytes, myelocytes and metamyelocytes) > 1% indicates that a LEFT SHIFT is Present. MCH (RBC) [Entitic mass] 29.6 pg 27.0-32.0 [facility] Nucleated RBC/100 WBC (Bld) [Ratio] 0 % 0-5 [facility] MCHC Auto (RBC) [Mass/Vol]Or dered By: ED PROVIDER on 03-30-2023 MCHC (RBC) [Mass/Vol] 32.3 g/dL 32-36 [facility] No Panel InformationOrdered By: ED PROVIDER on 03-30-2023 Estimated Creatinine Clearance Calc 31.15 ml/min [facility] Estimated GFR (MDRD) Amer 97 mL/min >60 [facility] Comment on above: GFR Calc Estimated GFR (MDRD) Non-Af Amer 80 mL/min >60 [facility] Comment on above: Non- GFR Calc No Panel InformationOrdered By: Dick Love on 03-30-2023 Troponin I High Sensitivity 4 pg/mL 3.0-54.0 [facility] Comment on above: Please Note: New Nicko t Units and Gender Specific Reference Ranges. For more information see Policy Stat Procedure [place] High Sensitivity Troponin (TNIH) and attachments. Platelets bldOrdered By: ED PROVIDER on 03-30-2023 Platelets (Bld) [#/Vol] 328 10*3/uL 150-450 [facility] Serum or plasma calcium froylan urement (mass/volume)Ordered By: ED PROVIDER on 03-30-2023 Calcium [Mass/Vol] 9.5 mg/dL 8.5-10.1 [facility] Serum or plasma creatinine m easurement (mass/volume)Ordered By: ED PROVIDER on 03-30-2023 Creatinine [Mass/Vol] 0.74 mg/dL 0.55-1.02 [facility] Comment on above: The validity of the calculated GFR & GFRAA in patients over 70 years has not been determined. Clinical correlation is essential. Serum or plasma urea nitroge n measurement (mass/volume)Ordered By: ED PROVIDER on 03-30-2023 Urea nitrogen [Mass/Vol] 14 mg/dL 7-18 [facility] Thin prep Papanicolaou smear with manual screeningOrdered By: ED PROVIDER on 03-30-2023 Thin prep Papanicolaou smear with manual screening 8 5-15 [facility] Absolute lymphocyte countOrd ered By: Dr. Sarabia on 03-07-2023 Lymphocytes Auto (Unsp spec) [#/Vol] 1.53 10*3/uL 0.83-4.51 [facility] Basophil percentageOrdered B y: Dr. Sarabia on 03-07-2023 Basophils/100 WBC (Bld) 0.5 % 0-1 [facility] Chloride [Moles/Vol] 106 mmol/L 98-107 [facility] Eosinophils/100 WBC (Bld) 2.4 % 0-5 [facility] Glucose [Mass/Vol] 296 mg/dL 74-106 [facility] Comment on above: Glucose result great er than or equal to 200 mg/dLsuggests DIABETES MELLITUS per A.D.A. criteria. Neutrophils (Bld) [#/Vol] 5.2 10*3/uL 2.0-7.7 [facility] Neutrophils/100 WBC (Bld) 68.3 % 47-70 [facility] Potassium [Moles/Vol] 4.0 mmol/L 3.5-5.1 [facility] Sodium [Moles/Vol] 137 mmol/L 136-145 [facility] WBC (Bld) [#/Vol] 7.6 10*3/uL 4.4-11.0 [facility] Blood erythrocytes count (nu mber/volume)Ordered By: Dr. Sarabia on 03-07-2023 RBC (Bld) [#/Vol] 4.11 10*6/uL 4.2-5.4 [facility] Blood hemoglobin measurement (mass/volume)Ordered By: Dr. Sarabia on 03-07-2023 Hemoglobin (Bld) [Mass/Vol] 12.1 g/dL 12.0-15.0 [facility] Blood lymphocytes/100 leukoc ytesOrdered By: Dr. Sarabia on 03-07-2023 Lymphocytes/100 WBC (Bld) 20.2 % 19-41 [facility] Blood monocytes/100 leukocyt esOrdered By: Dr. Sarabia on 03-07-2023 Monocytes/100 WBC (Bld) 8.3 % 0-10 [facility] Blood platelet mean volumeOr dered By: Dr. Sarabia on 03-07-2023 Platelet mean volume (Bld) [Entitic vol] 12.6 fL 6.2-12.0 [facility] Determination of erythrocyte mean corpuscular volume (MCV)Ordered By: Dr. Sarabia on 03-07-2023 MCV (RBC) [Entitic vol] 92.0 fL 81-99 [facility] Hematocrit Auto (Bld) [Volum e fraction]Ordered By: Dr. Sarabia on 03-07-2023 Hematocrit (Bld) [Volume fraction] 37.8 % 37-47 [facility] Laboratory - Chemistry and C hemistry - challengeOrdered By: Dr. Sarabia on 03-07-2023 CO2 [Moles/Vol] 25.0 mmol/L 21.0-32.0 [facility] Urea nitrogen/Creatinine [Mass ratio] 17.3 mg/mg 10-20 [facility] Laboratory - Hematology and Cell countsOrdered By: Dr. Sarabia on 03-07-2023 Erythrocyte distribution width (RBC) [Entitic vol] 43.9 fL 35.1-43.9 [facility] Erythrocyte distribution width (RBC) [Ratio] 13.1 % 11.6-14.6 [facility] Immature granulocytes/100 WBC (Bld) 0.300 % 0.0-0.9 [facility] Comment on above: IG% - Immature Granu locytes (promyelocytes, myelocytes and metamyelocytes) > 1% indicates that a LEFT SHIFT is Present. MCH (RBC) [Entitic mass] 29.4 pg 27.0-32.0 [facility] Nucleated RBC/100 WBC (Bld) [Ratio] 0 % 0-5 [facility] MCHC Auto (RBC) [Mass/Vol]Or dered By: Dr. Sarabia on 03-07-2023 MCHC (RBC) [Mass/Vol] 32.0 g/dL 32-36 [facility] No Panel InformationOrdered By: Dr. Sarabia on 03-07-2023 Estimated GFR (MDRD) Amer 81 mL/min >60 [facility] Comment on above: GFR Calc Estimated GFR (MDRD) Non-Af Amer 67 mL/min >60 [facility] Comment on above: Non- GFR Calc Platelets bldOrdered By: Dr. Sarabia on 03-07-2023 Platelets (Bld) [#/Vol] 218 10*3/uL 150-450 [facility] Serum or plasma calcium froylan urement (mass/volume)Ordered By: Dr. Sarabia on 03-07-2023 Calcium [Mass/Vol] 9.7 mg/dL 8.5-10.1 [facility] Serum or plasma creatinine m easurement (mass/volume)Ordered By: Dr. Sarabia on 03-07-2023 Creatinine [Mass/Vol] 0.87 mg/dL 0.55-1.02 [facility] Comment on above: The validity of the calculated GFR & GFRAA in patients over 70 years has not been determined. Clinical correlation is essential. Serum or plasma urea nitroge n measurement (mass/volume)Ordered By: Dr. Sarabia on 03-07-2023 Urea nitrogen [Mass/Vol] 15 mg/dL 7-18 [facility] Thin prep Papanicolaou smear with manual screeningOrdered By: Dr. Sarabia on 03-07-2023 Thin prep Papanicolaou smear with manual screening 6 5-[address] [facility] [address] PELVIS W IVCONon 02-14-20 [facility] UA DIP, URINE (POC)on 2022 BILIRUBIN UA (POCT) Negative Negative [facility] CLARITY UA (POCT) Slightly Cloudy Cl [facility] COLOR UA (POCT) Yellow [facility] GLUCOSE UA (POCT) Negative Negative mg/dL [facility] HEMOGLOBIN/BLOOD UA (POCT) Trace-intact Abnormal Negative [facility] KETONE UA (POCT) Negative Negative mg/dL [facility] LEUKOCYTES UA (POCT) Negative Negative [facility] NITRITE UA (POCT) Negative Negative [facility] PH UA (POCT) 6.5 4.5 - 8.0 [facility] Protein Ql (U) Negative Negative mg/dL [facility] SPECIFIC GRAVITY UA (POCT) <=1.005 Abnormal 1.005 - 1.030 [facility] UROBILINOGEN UA (POCT) 0.2 E.U./dL Kyara l E.U./dL [facility] CT CHEST WO IVCONon 11-20-19 23 [facility] No Panel Informationon 11-16 [facility] XR Chest PA and Lateralon IMPRESSION: Findings as discussed under Results portion of report. . Program Engagement Director: AMBER Transcribe Date/Time: Oct 29 2022 7:55A Dictated by : ALEKSANDR ESPARZA DO This examination was interpreted and the report reviewed and electronically signed by: ALEKSANDR ESPARZA DO on Oct 29 2022 7:57AM [facility] * * *Final Report* [...] discussed under Results portion of report. . Program Engagement Director: AMBER Transcribe Date/Time: Oct 29 2022 7:55A Dictated by : ALEKSANDR ESPARZA DO This examination was interpreted and the report reviewed and electronically signed by: ALEKSANDR ESPARZA DO on Oct 29 2022 7:57AM EST [facility] XR Chest PA and LateralOrder ed By: Ccf Provider on 10-29-2022 [facility] XR CHEST 2V FRONTAL/LATon [facility] XR Chest PA and Lateralon Radiology Study observation (narrative) [facility] No Panel Informationon 10-12 [facility] SPIROMETRY - BASELINE AND PO ST DILATORon 10-12-2022 DLCO (ml/min/mmHg) 14.01 ml/min/mmHg [facility] DLCO/VA (ml/min/mmHg/L) 3.28 ml/min/mmHg/L [facility] ERV BOX (L) 0.45 L [facility] XVL69-61% POST (L/S) 1.24 L/S [facility] TBQ53-51% PRE (L/S) 0.82 L/S [facility] FEV1 PRE (L) 1.58 L [facility] FEV1/FVC POST (%) 74 % [facility] FEV1/FVC PRE (%) 64 % [facility] FEV1_POST (L) 1.71 L [facility] FRC Box (L) 2.56 L [facility] FVC POST (L) 2.31 L [facility] FVC PRE (L) 2.47 L [facility] IC BOX (L) 1.83 L [facility] PEF POST (L/S) 3.00 L/S [facility] PEF PRE (L/S) 3.13 L/S [facility] RV Box (L) 1.99 L [facility] RV/TLC Box (%) 47 % [facility] TLC Box (L) 4.27 L [facility] VA (L) 4.27 L [facility] VC (L) BOX 2.29 L [facility] Vital Signs Date Time Vital Sign Value Performing Clinician Facility 06-15-2025 14:15-0400 Body height 152.[address] Henok Martinez MD Work Phone: [facility] 06-15-2025 14:15-0400 Body mass index (BMI) [Ratio] 29 kg/m2 Dr. Henok Martinez MD Work Phone: [facility] 06-15-2025 14:15-0400 Body weight 67.[address] Henok Martinez MD Work Phone: [facility] 06-15-2025 14:15-0400 Diastolic blood pressure 66 mm[Hg] Dr. Henok Martinez MD Work Phone: [facility] 06-15-2025 14:15-0400 Heart rate 67 /min Dr. Henok Martinez MD Work Phone: [facility] 06-15-2025 14:15-0400 Respiratory rate 16 /min Dr. Henok Martinez MD Work Phone: [facility] 06-15-2025 14:15-0400 Systolic blood pressure 108 mm[Hg] Dr. Henok Martinez MD Work Phone: [facility] 06-09-2025 11:16-0400 Body mass index (BMI) [Ratio] 29.02 kg/m2 Henok Martinez MD Work Phone: [facility] 06-09-2025 11:16-0400 Body weight 67.41 kg Henok Martinez MD Work Phone: [facility] 06-09-2025 11:16-0400 Diastolic blood pressure 70 mm[Hg] Henok Martinez MD Work Phone: [facility] 06-09-2025 11:16-0400 Heart rate 75 /min Henok Martinez MD Work Phone: [facility] 06-09-2025 11:16-0400 SaO2% (BldA) [Mass fraction] 99 % Henok Martinez MD Work Phone: [facility] 06-09-2025 11:16-0400 Systolic blood pressure 116 mm[Hg] Henok Martinez MD Work Phone: [facility] 06-02-2025 08:13-0400 Body temperature 97.9 [degF] Dr. Henok Martinez MD Work Phone: 5(900)917-100471 [place] [address] 06-02-2025 08:13-0400 Diastolic blood pressure 64 mm[Hg] Dr. Henok Martinez MD Work Phone: 6(945)168-057071 [place] [address] 06-02-2025 08:13-0400 Heart rate 100 /min Dr. Henok Martinez MD Work Phone: 1(471)671-719871 [place] [address] 06-02-2025 08:13-0400 Respiratory rate 16 /min Dr. Henok Martinez MD Work Phone: 5(700)214-999371 [place] [address] 06-02-2025 08:13-0400 SaO2% (BldA) [Mass fraction] 99 % Dr. Henok Martinez MD Work Phone: 2(403)756-897971 [place] [address] 06-02-2025 08:13-0400 Systolic blood pressure 157 mm[Hg] Dr. Henok Martinez MD Work Phone: 2(203)469-255671 [place] [address] 06-02-2025 05:41-0400 Body mass index (BMI) [Ratio] 29 kg/m2 Dr. Henok Martinez MD Work Phone: 7(906)580-002371 [place] [address] 06-02-2025 05:41-0400 Body weight 67.[address] Henok Martinez MD Work Phone: 2(096)295-931471 [place] [address] 06-01-2025 16:06-0400 Body height 152.[address] Henok Martinez MD Work Phone: 5(093)765-145271 [place] [address] 05-31-2025 03:19-0400 Body temperature 98.7 [degF] Dr. Henok Martinez MD Work Phone: 1(248)088-851871 [place] [address] 05-31-2025 03:19-0400 Diastolic blood pressure 58 mm[Hg] Dr. Henok Martinez MD Work Phone: 9(688)748-485771 [place] [address] 05-31-2025 03:19-0400 Heart rate 78 /min Dr. Henok Martinez MD Work Phone: 6(234)158-185471 [place] [address] 05-31-2025 03:19-0400 Respiratory rate 15 /min Dr. Henok Martinez MD Work Phone: 3(751)663-257771 [place] [address] 05-31-2025 03:19-0400 SaO2% (BldA) [Mass fraction] 100 % Dr. Henok Martinez MD Work Phone: [facility] 05-31-2025 03:19-0400 Systolic blood pressure 120 mm[Hg] Dr. Henok Martinez MD Work Phone: [facility] 05-30-2025 21:43-0400 Body mass index (BMI) [Ratio] 29.9 kg/m2 Dr. Henok Martinez MD Work Phone: [facility] 05-30-2025 21:43-0400 Body weight 69.[address] Henok Martinez MD Work Phone: [facility] 05-30-2025 21:27-0400 Body height 152.[address] Henok Martinez MD Work Phone: [facility] 05-25-2025 12:03-0400 Body mass index (BMI) [Ratio] 30.08 kg/m2 Juan Miguel Yusuf MD Work Phone: [facility] 05-25-2025 12:03-0400 Body temperature 98.49 [degF] Juan Miguel Yusuf MD Work Phone: [facility] 05-25-2025 12:03-0400 Body weight 69.85 kg Juan Miguel Yusuf MD Work Phone: [facility] 05-25-2025 12:03-0400 Diastolic blood pressure 69 mm[Hg] Juan Miguel Yusuf MD Work Phone: [facility] 05-25-2025 12:03-0400 Heart rate 73 /min Juan Miguel Yusuf MD Work Phone: [facility] 05-25-2025 12:03-0400 SaO2% (BldA) [Mass fraction] 98 % Juan Miguel Yusuf MD Work Phone: [facility] 05-25-2025 12:03-0400 Systolic blood pressure 140 mm[Hg] Juan Miguel Yusuf MD Work Phone: [facility] 04-06-2025 14:07-0400 Body height 152.4 cm Ayaz Bazzi MD Work Phone: [facility] 04-06-2025 14:07-0400 Body mass index (BMI) [Ratio] 29.29 kg/m2 Ayaz Bazzi MD Work Phone: [facility] 04-06-2025 14:07-0400 Body weight 68.04 kg Ayaz Bazzi MD Work Phone: [facility] 03-30-2025 13:48-0400 Body mass index (BMI) [Ratio] 29.69 kg/m2 Henok Martinez MD Work Phone: [facility] 03-30-2025 13:48-0400 Body weight 68.95 kg Henok Martinez MD Work Phone: [facility] 03-30-2025 13:48-0400 Diastolic blood pressure 68 mm[Hg] Henok Martinez MD Work Phone: [facility] 03-30-2025 13:48-0400 Heart rate 84 /min Henok Martinez MD Work Phone: [facility] 03-30-2025 13:48-0400 SaO2% (BldA) [Mass fraction] 98 % Henok Martinez MD Work Phone: [facility] 03-30-2025 13:48-0400 Systolic blood pressure 118 mm[Hg] Henok Martinez MD Work Phone: [facility] 02-24-2025 10:57-0400 Body mass index (BMI) [Ratio] 28.9 kg/m2 Henok Martinez MD Work Phone: [facility] 02-24-2025 10:57-0400 Body weight 67.13 kg Henok Martinez MD Work Phone: [facility] 02-24-2025 10:57-0400 Diastolic blood pressure 72 mm[Hg] Henok Martinez MD Work Phone: [facility] 02-24-2025 10:57-0400 Heart rate 77 /min Henok Martinez MD Work Phone: [facility] 02-24-2025 10:57-0400 SaO2% (BldA) [Mass fraction] 99 % Henok Martinez MD Work Phone: [facility] 02-24-2025 10:57-0400 Systolic blood pressure 118 mm[Hg] Henok Martinez MD Work Phone: [facility] 02-22-2025 10:00-0400 Body mass index (BMI) [Ratio] 29.39 kg/m2 Lab/Port Wstr Work Phone: [facility] 02-22-2025 10:00-0400 Body weight 68.27 kg Lab/Port Wstr Work Phone: [facility] 02-05-2025 09:19-0400 Body mass index (BMI) [Ratio] 30.17 kg/m2 Treatment Wstr Work Phone: [facility] 02-05-2025 09:19-0400 Body temperature 98.6 [degF] Treatment Wstr Work Phone: [facility] 02-05-2025 09:19-0400 Body weight 70.08 kg Treatment Wstr Work Phone: [facility] 02-05-2025 09:19-0400 Diastolic blood pressure 76 mm[Hg] Treatment Wstr Work Phone: [facility] 02-05-2025 09:19-0400 Heart rate 80 /min Treatment Wstr Work Phone: [facility] 02-05-2025 09:19-0400 SaO2% (BldA) [Mass fraction] 97 % Treatment Wstr Work Phone: [facility] 02-05-2025 09:19-0400 Systolic blood pressure 145 mm[Hg] Treatment Wstr Work Phone: [facility] 02-04-2025 10:35-0400 Body height 152.4 cm Ayaz Bazzi MD Work Phone: [facility] 02-04-2025 10:35-0400 Body mass index (BMI) [Ratio] 29.49 kg/m2 Ayaz Bazzi MD Work Phone: [facility] 02-04-2025 10:35-0400 Body weight 68.49 kg Ayaz Bazzi MD Work Phone: [facility] 02-04-2025 10:35-0400 Diastolic blood pressure 60 mm[Hg] Ayaz Bazzi MD Work Phone: [facility] 02-04-2025 10:35-0400 Heart rate 70 /min Ayaz Bazzi MD Work Phone: [facility] 02-04-2025 10:35-0400 SaO2% (BldA) [Mass fraction] 97 % Ayaz Bazzi MD Work Phone: [facility] 02-04-2025 10:35-0400 Systolic blood pressure 106 mm[Hg] Ayaz Bazzi MD Work Phone: [facility] 02-01-2025 10:48-0400 Body mass index (BMI) [Ratio] 29.11 kg/m2 Henok Martinez MD Work Phone: [facility] 02-01-2025 10:48-0400 Body temperature 98.8 [degF] Henok Martinez MD Work Phone: [facility] 02-01-2025 10:48-0400 Body weight 68.49 kg Henok Martinez MD Work Phone: [facility] 02-01-2025 10:48-0400 Diastolic blood pressure 62 mm[Hg] Henok Martinez MD Work Phone: [facility] 02-01-2025 10:48-0400 Heart rate 79 /min Henok Martinez MD Work Phone: [facility] 02-01-2025 10:48-0400 SaO2% (BldA) [Mass fraction] 99 % Henok Martinez MD Work Phone: [facility] 02-01-2025 10:48-0400 Systolic blood pressure 102 mm[Hg] Henok Martinez MD Work Phone: [facility] 01-28-2025 11:08-0400 Body height 153.4 cm Treatment Wstr Work Phone: [facility] 01-28-2025 11:08-0400 Body mass index (BMI) [Ratio] 28.62 kg/m2 Treatment Wstr Work Phone: [facility] 01-28-2025 11:08-0400 Body temperature 99 [degF] Treatment Wstr Work Phone: [facility] 01-28-2025 11:08-0400 Body weight 67.36 kg Treatment Wstr Work Phone: [facility] 01-28-2025 11:08-0400 Diastolic blood pressure 67 mm[Hg] Treatment Wstr Work Phone: [facility] 01-28-2025 11:08-0400 Heart rate 69 /min Treatment Wstr Work Phone: [facility] 01-28-2025 11:08-0400 SaO2% (BldA) [Mass fraction] 100 % Treatment Wstr Work Phone: [facility] 01-28-2025 11:08-0400 Systolic blood pressure 113 mm[Hg] Treatment Wstr Work Phone: [facility] 01-25-2025 08:30-0400 Body height 152.5 cm Juan Miguel Yusuf MD Work Phone: [facility] 01-25-2025 08:30-0400 Body mass index (BMI) [Ratio] 29.26 kg/m2 Juan Miguel Yusuf MD Work Phone: [facility] 01-25-2025 08:30-0400 Body temperature 99 [degF] Juan Miguel Yusuf MD Work Phone: [facility] 01-25-2025 08:30-0400 Body weight 68.04 kg Juan Miguel Yusuf MD Work Phone: [facility] 01-25-2025 08:30-0400 Diastolic blood pressure 74 mm[Hg] Juan Miguel Yusuf MD Work Phone: [facility] 01-25-2025 08:30-0400 Heart rate 110 /min Juan Miguel Yusuf MD Work Phone: [facility] 01-25-2025 08:30-0400 SaO2% (BldA) [Mass fraction] 99 % Juan Miguel Yusuf MD Work Phone: [facility] 01-25-2025 08:30-0400 Systolic blood pressure 133 mm[Hg] Juan Miguel Yusuf MD Work Phone: [facility] 01-14-2025 21:17-0400 Diastolic blood pressure 68 mm[Hg] Dr. Henok Martinez MD Work Phone: [facility] 01-14-2025 21:17-0400 Heart rate 75 /min Dr. Henok Martinez MD Work Phone: [facility] 01-14-2025 21:17-0400 Systolic blood pressure 136 mm[Hg] Dr. Henok Martinez MD Work Phone: [facility] 01-14-2025 20:00-0400 Body temperature 98 [degF] Dr. Henok Martinez MD Work Phone: [facility] 01-14-2025 20:00-0400 Respiratory rate 16 /min Dr. Henok Martinez MD Work Phone: [facility] 01-14-2025 20:00-0400 SaO2% (BldA) [Mass fraction] 97 % Dr. Henok Martinez MD Work Phone: [facility] 01-14-2025 06:00-0400 Body mass index (BMI) [Ratio] 29.7 kg/m2 Dr. Henok Martinez MD Work Phone: [facility] 01-14-2025 06:00-0400 Body weight 68.[address] Henok Martinez MD Work Phone: [facility] 01-13-2025 11:06-0400 Body height 152.[address] Henok Martinez MD Work Phone: 8(112)382-636964 [place] [address] 01-10-2025 01:10-0400 Body temperature 97.9 [degF] Dr. Henok Martinez MD Work Phone: 1(232)759-293264 [place] [address] 01-10-2025 01:10-0400 Diastolic blood pressure 90 mm[Hg] Dr. Henok Martinez MD Work Phone: 4(787)781-930171 [place] [address] 01-10-2025 01:10-0400 Heart rate 86 /min Dr. Henok Martinez MD Work Phone: 9(714)810-791971 [place] [address] 01-10-2025 01:10-0400 Respiratory rate 22 /min Dr. Henok Martinez MD Work Phone: 2(615)610-385071 [place] [address] 01-10-2025 01:10-0400 SaO2% (BldA) [Mass fraction] 96 % Dr. Henok Martinez MD Work Phone: 7(668)382-425171 [place] [address] 01-10-2025 01:10-0400 Systolic blood pressure 158 mm[Hg] Dr. Henok Martinez MD Work Phone: 0(124)726-917364 [place] [address] 01-09-2025 18:39-0400 Body height 152.[address] Henok Martinez MD Work Phone: 8(493)481-611671 [place] [address] 01-09-2025 18:39-0400 Body mass index (BMI) [Ratio] 29.4 kg/m2 Dr. Henok Martinez MD Work Phone: 2(168)198-425271 [place] [address] 01-09-2025 18:39-0400 Body weight 68.[address] Henok Martinez MD Work Phone: [facility] 11-17-2024 12:52-0500 Diastolic blood pressure 62 mm[Hg] Angelia Click WEIGHER AND CHARGER.[employer] BU[employer] Work Phone: [facility] 11-17-2024 12:52-0500 Heart rate 72 /min Angelia Click WEIGHER AND CHARGER.[employer] BUILDER Work Phone: [facility] 11-17-2024 12:52-0500 Respiratory rate 16 /min Angelia Click WEIGHER AND CHARGER.[employer] BUILDER Work Phone: [facility] 11-17-2024 12:52-0500 Systolic blood pressure 104 mm[Hg] Angelia Hart WEIGHER AND CHARGER.[employer] BUILDER Work Phone: [facility] 11-04-2024 15:14-0500 Body height 149.9 cm Henok Martinez MD Work Phone: [facility] 11-04-2024 15:14-0500 Body mass index (BMI) [Ratio] 32.11 kg/m2 Henok Martinez MD Work Phone: [facility] 11-04-2024 15:14-0500 Body weight 72.12 kg Henok Martinez MD Work Phone: [facility] 11-04-2024 15:14-0500 Diastolic blood pressure 50 mm[Hg] Henok Martinez MD Work Phone: [facility] 11-04-2024 15:14-0500 Heart rate 81 /min Henok Martinez MD Work Phone: [facility] 11-04-2024 15:14-0500 SaO2% (BldA) [Mass fraction] 98 % Henok Martinez MD Work Phone: [facility] 11-04-2024 15:14-0500 Systolic blood pressure 110 mm[Hg] Henok Martinez MD Work Phone: [facility] 10-13-2024 14:44-0500 Body mass index (BMI) [Ratio] 32.72 kg/m2 Virginia Suppan WEIGHER AND CHARGER.[employer] BU[employer] Work Phone: [facility] 10-13-2024 14:44-0500 Body temperature 99.3 [degF] Virginia Suppan WEIGHER AND CHARGER.[employer] BUILDER Work Phone: [facility] 10-13-2024 14:44-0500 Body weight 73.48 kg Virginia Suppan WEIGHER AND CHARGER.[employer] BUILDER Work Phone: [facility] 10-13-2024 14:44-0500 Diastolic blood pressure 68 mm[Hg] Virginia Suppan WEIGHER AND CHARGER.[employer] BUILDER Work Phone: [facility] 10-13-2024 14:44-0500 Heart rate 67 /min Virginia Suppan WEIGHER AND CHARGER.[employer] BUILDER Work Phone: [facility] 10-13-2024 14:44-0500 Respiratory rate 16 /min Virginia Suppan WEIGHER AND CHARGER.[employer] BUILDER Work Phone: [facility] 10-13-2024 14:44-0500 SaO2% (BldA) [Mass fraction] 97 % Virginia Suppan WEIGHER AND CHARGER.[employer] BUILDER Work Phone: [facility] 10-13-2024 14:44-0500 Systolic blood pressure 124 mm[Hg] Virginia Suppan WEIGHER AND CHARGER.[employer] BUILDER Work Phone: [facility] 07-01-2024 16:04-0400 Body height 149.9 cm Henok Martinez MD Work Phone: [facility] 07-01-2024 16:04-0400 Body mass index (BMI) [Ratio] 32.72 kg/m2 Henok Martinez MD Work Phone: [facility] 07-01-2024 16:04-0400 Body weight 73.48 kg Henok Martinez MD Work Phone: [facility] 07-01-2024 16:04-0400 Diastolic blood pressure 56 mm[Hg] Henok Martinez MD Work Phone: [facility] 07-01-2024 16:04-0400 Heart rate 76 /min Henok Martinez MD Work Phone: [facility] 07-01-2024 16:04-0400 SaO2% (BldA) [Mass fraction] 99 % Henok Martinez MD Work Phone: [facility] 07-01-2024 16:04-0400 Systolic blood pressure 124 mm[Hg] Henok Martinez MD Work Phone: [facility] 06-05-2024 11:34-0400 Body mass index (BMI) [Ratio] 32.72 kg/m2 Nancy Medley MD Work Phone: [facility] 06-05-2024 11:34-0400 Body weight 73.48 kg Nancy Medley MD Work Phone: [facility] 05-01-2024 15:44-0400 Body mass index (BMI) [Ratio] 33.53 kg/m2 Henok Martinez MD Work Phone: [facility] 05-01-2024 15:44-0400 Body weight 75.3 kg Henok Martinez MD Work Phone: [facility] 05-01-2024 15:44-0400 Diastolic blood pressure 70 mm[Hg] Henok Martinez MD Work Phone: [facility] 05-01-2024 15:44-0400 Heart rate 64 /min Henok Martinez MD Work Phone: [facility] 05-01-2024 15:44-0400 SaO2% (BldA) [Mass fraction] 99 % Henok Martinez MD Work Phone: [facility] 05-01-2024 15:44-0400 Systolic blood pressure 122 mm[Hg] Henok Martinez MD Work Phone: [facility] 03-04-2024 14:15-0400 Body height 149.9 cm Henok Martinez MD Work Phone: [facility] 03-04-2024 14:15-0400 Body mass index (BMI) [Ratio] 31.1 kg/m2 Henok Martinez MD Work Phone: [facility] 03-04-2024 14:15-0400 Body temperature 98.91 [degF] Henok Martinez MD Work Phone: [facility] 03-04-2024 14:15-0400 Body weight 69.85 kg Henok Martinez MD Work Phone: [facility] 03-04-2024 14:15-0400 Diastolic blood pressure 60 mm[Hg] Henok Martinez MD Work Phone: [facility] 03-04-2024 14:15-0400 Heart rate 91 /min Henok Martinez MD Work Phone: [facility] 03-04-2024 14:15-0400 SaO2% (BldA) [Mass fraction] 97 % Henok Martinez MD Work Phone: [facility] 03-04-2024 14:15-0400 Systolic blood pressure 110 mm[Hg] Henok Martinez MD Work Phone: [facility] 02-25-2024 16:00-0400 Heart rate 113 /min Dr. Henok Martinez Work Phone: [facility] 02-25-2024 16:00-0400 Respiratory rate 22 /min Dr. Henok Martinez Work Phone: [facility] 02-25-2024 15:52-0400 Body mass index (BMI) [Ratio] 31.5 kg/m2 Dr. Henok Martinez Work Phone: [facility] 02-25-2024 15:52-0400 Body weight 72.[address] Henok Martinez Work Phone: [facility] 02-25-2024 14:36-0400 Body height 152.[address] Henok Martinez Work Phone: [facility] 02-25-2024 14:36-0400 Body temperature 99.6 [degF] Dr. Henok Martinez Work Phone: [facility] 02-25-2024 14:36-0400 Diastolic blood pressure 77 mm[Hg] Dr. Henok Martinez Work Phone: [facility] 02-25-2024 14:36-0400 SaO2% (BldA) [Mass fraction] 97 % Dr. Henok Martinez Work Phone: [facility] 02-25-2024 14:36-0400 Systolic blood pressure 158 mm[Hg] Dr. Henok Martinez Work Phone: [facility] 02-19-2024 12:39-0400 Body mass index (BMI) [Ratio] 33.13 kg/m2 Lana Alanis APRN.CRATE BUILDER Work Phone: [facility] 02-19-2024 12:39-0400 Body temperature 99.39 [degF] Lana Alanis APRN.CRATE BUILDER Work Phone: [facility] 02-19-2024 12:39-0400 Body weight 74.4 kg Lana Alanis WEIGHER AND CHARGER.[employer] BUILDER Work Phone: [facility] 02-19-2024 12:39-0400 Diastolic blood pressure 72 mm[Hg] Lana Alanis WEIGHER AND CHARGER.[employer] BUILDER Work Phone: [facility] 02-19-2024 12:39-0400 Heart rate 74 /min Lana Alanis WEIGHER AND CHARGER.[employer] BUILDER Work Phone: [facility] 02-19-2024 12:39-0400 Respiratory rate 16 /min Lana Alanis WEIGHER AND CHARGER.[employer] BUILDER Work Phone: [facility] 02-19-2024 12:39-0400 SaO2% (BldA) [Mass fraction] 99 % Lana Alanis WEIGHER AND CHARGER.[employer] BUILDER Work Phone: [facility] 02-19-2024 12:39-0400 Systolic blood pressure 122 mm[Hg] Lana Alanis WEIGHER AND CHARGER.[employer] BUILDER Work Phone: [facility] 02-07-2024 10:58-0400 Body temperature 98.1 [degF] Fazal Law WEIGHER AND CHARGER.[employer] BUILDER Work Phone: [facility] 02-07-2024 10:58-0400 Body weight 73.4 kg Fazal Law WEIGHER AND CHARGER.[employer] BUILDER Work Phone: [facility] 02-07-2024 10:58-0400 Diastolic blood pressure 72 mm[Hg] Fazal Law WEIGHER AND CHARGER.[employer] BUILDER Work Phone: [facility] 02-07-2024 10:58-0400 Heart rate 68 /min Fazal Thanh WEIGHER AND CHARGER.[employer] BUILDER Work Phone: [facility] 02-07-2024 10:58-0400 Respiratory rate 16 /min Fazal Pendlenatalia WEIGHER AND CHARGER.CRATE BUILDER Work Phone: [facility] 02-07-2024 10:58-0400 SaO2% (BldA) [Mass fraction] 97 % Fazal [place] WEIGHER AND CHARGER.CRATE BUILDER Work Phone: [facility] 02-07-2024 10:58-0400 Systolic blood pressure 124 mm[Hg] Fazal Law APRN.CRATE BUILDER Work Phone: [facility] 12-16-2023 10:07-0500 Body height 149.9 cm Henok Martinez MD Work Phone: [facility] 12-16-2023 10:07-0500 Body weight 74.84 kg Henok Martinez MD Work Phone: [facility] 12-16-2023 10:07-0500 Diastolic blood pressure 52 mm[Hg] Henok Martinez MD Work Phone: [facility] 12-16-2023 10:07-0500 Heart rate 63 /min Henok Martinez MD Work Phone: [facility] 12-16-2023 10:07-0500 SaO2% (BldA) [Mass fraction] 99 % Henok Martinez MD Work Phone: [facility] 12-16-2023 10:07-0500 Systolic blood pressure 110 mm[Hg] Henok Martinez MD Work Phone: [facility] 11-21-2023 09:22-0500 Body mass index (BMI) [Ratio] 31.6 kg/m2 Dr. Henok Martinez Work Phone: [facility] 11-21-2023 09:22-0500 Body weight 73.[address] Henok Martinez Work Phone: [facility] 11-21-2023 09:22-0500 Diastolic blood pressure 78 mm[Hg] Dr. Henok Martinez Work Phone: [facility] 11-21-2023 09:22-0500 Heart rate 65 /min Dr. Henok Martinez Work Phone: [facility] 11-21-2023 09:22-0500 Respiratory rate 16 /min Dr. Henok Martinez Work Phone: [facility] 11-21-2023 09:22-0500 Systolic blood pressure 168 mm[Hg] Dr. Henok Martinez Work Phone: [facility] 09-05-2023 15:39-0500 Body weight 73.48 kg NA Muller PA-C Work Phone: [facility] 09-05-2023 15:39-0500 Diastolic blood pressure 70 mm[Hg] NA Muller PA-C Work Phone: [facility] 09-05-2023 15:39-0500 Heart rate 68 /min NA Muller PA-C Work Phone: [facility] 09-05-2023 15:39-0500 Respiratory rate 16 /min NA Muller PA-C Work Phone: [facility] 09-05-2023 15:39-0500 SaO2% (BldA) [Mass fraction] 99 % NA Muller PA-C Work Phone: [facility] 09-05-2023 15:39-0500 Systolic blood pressure 132 mm[Hg] NA Muller PA-C Work Phone: [facility] 07-30-2023 16:21-0400 Body mass index (BMI) [Ratio] 32.5 kg/m2 Dr. Henok Martinez Work Phone: [facility] 07-30-2023 16:21-0400 Body weight 75.[address] Henok Martinez Work Phone: [facility] 07-30-2023 16:21-0400 Diastolic blood pressure 66 mm[Hg] Dr. Henok Martinez Work Phone: [facility] 07-30-2023 16:21-0400 Systolic blood pressure 165 mm[Hg] Dr. Henok Martinez Work Phone: [facility] 07-30-2023 16:01-0400 Body height 152.[address] Henok Martinez Work Phone: [facility] 07-30-2023 16:01-0400 Body temperature 96.3 [degF] Dr. Henok Martinez Work Phone: 1(577)189-089171 [place] [address] 07-30-2023 16:01-0400 Heart rate 72 /min Dr. Henok Martinez Work Phone: 0(006)201-397071 [place] [address] 07-30-2023 16:01-0400 Respiratory rate 18 /min Dr. Henok Martinez Work Phone: 5(135)906-739271 [place] [address] 07-30-2023 16:01-0400 SaO2% (BldA) [Mass fraction] 98 % Dr. Henok Martinez Work Phone: 0(737)476-225471 [place] [address] 06-18-2023 10:31-0400 Body mass index (BMI) [Ratio] 32.5 kg/m2 Dr. Henok Martinez Work Phone: 5(497)100-321271 [place] [address] 06-18-2023 10:31-0400 Body temperature 98.4 [degF] Dr. Henok Martinez Work Phone: 6(511)111-227371 [place] [address] 06-18-2023 10:31-0400 Body weight 75.[address] Henok Martinez Work Phone: 2(796)389-267771 [place] [address] 06-18-2023 10:31-0400 Diastolic blood pressure 70 mm[Hg] Dr. Henok Martinez Work Phone: 8(331)425-071771 [place] [address] 06-18-2023 10:31-0400 Heart rate 83 /min Dr. Henok Martinez Work Phone: 6(367)105-298271 [place] [address] 06-18-2023 10:31-0400 Respiratory rate 17 /min Dr. Henok Martinez Work Phone: 1(287)129-012771 [place] [address] 06-18-2023 10:31-0400 SaO2% (BldA) [Mass fraction] 98 % Dr. Henok Martinez Work Phone: 5(093)438-862371 [place] [address] 06-18-2023 10:31-0400 Systolic blood pressure 150 mm[Hg] Dr. Henok Martinez Work Phone: 5(288)969-756371 [place] [address] 04-22-2023 19:53-0400 Diastolic blood pressure 95 mm[Hg] Dr. Henok Martinez Work Phone: 8(491)883-168871 [place] [address] 04-22-2023 19:53-0400 Systolic blood pressure 174 mm[Hg] Dr. Henok Martinez Work Phone: 5(338)563-877264 [place] [address] 04-22-2023 16:52-0400 Body height 152.[address] Henok Martinez Work Phone: 2(338)773-750371 [place] [address] 04-22-2023 16:52-0400 Body mass index (BMI) [Ratio] 32.8 kg/m2 Dr. Henok Martinez Work Phone: 6(365)013-484871 [place] [address] 04-22-2023 16:52-0400 Body temperature 97 [degF] Dr. Henok Martinez Work Phone: 5(075)259-462571 [place] [address] 04-22-2023 16:52-0400 Body weight 76.[address] Henok Martinez Work Phone: 0(711)571-606471 [place] [address] 04-22-2023 16:52-0400 Heart rate 74 /min Dr. Henok Martinez Work Phone: 9(736)643-058371 [place] [address] 04-22-2023 16:52-0400 Respiratory rate 18 /min Dr. Henok Martinez Work Phone: 2(415)746-083164 [place] [address] 04-22-2023 16:52-0400 SaO2% (BldA) [Mass fraction] 96 % Dr. Henok Martinez Work Phone: [facility] 04-15-2023 13:04-0400 Diastolic blood pressure 96 mm[Hg] Clarita Boggs WEIGHER AND CHARGER.CRATE BUILDER Work Phone: [facility] 04-15-2023 13:04-0400 Heart rate 77 /min Clarita Haagen WEIGHER AND CHARGER.CRATE BUILDER Work Phone: [facility] 04-15-2023 13:04-0400 Respiratory rate 16 /min Clarita Haagen WEIGHER AND CHARGER.CRATE BUILDER Work Phone: [facility] 04-15-2023 13:04-0400 SaO2% (BldA) [Mass fraction] 99 % Clarita Boggs WEIGHER AND CHARGER.CRATE BUILDER Work Phone: [facility] 04-15-2023 13:04-0400 Systolic blood pressure 144 mm[Hg] Clarita Boggs APRN.CNP Work Phone: [facility] 04-05-2023 20:23-0400 Diastolic blood pressure 71 mm[Hg] Dr. Henok Martinez Work Phone: [facility] 04-05-2023 20:23-0400 Heart rate 62 /min Dr. Henok Martinez Work Phone: [facility] 04-05-2023 20:23-0400 Respiratory rate 15 /min Dr. Henok Martinez Work Phone: [facility] 04-05-2023 20:23-0400 SaO2% (BldA) [Mass fraction] 98 % Dr. Henok Martinez Work Phone: [facility] 04-05-2023 20:23-0400 Systolic blood pressure 148 mm[Hg] Dr. Henok Martinez Work Phone: [facility] 04-05-2023 17:38-0400 Body mass index (BMI) [Ratio] 32.2 kg/m2 Dr. Henok Martinez Work Phone: [facility] 04-05-2023 17:38-0400 Body temperature 97.9 [degF] Dr. Henok Martinez Work Phone: [facility] 04-05-2023 17:38-0400 Body weight 74.[address] Henok Martinez Work Phone: [facility] 04-01-2023 16:07-0400 Body weight 74.84 kg Henok Martinez MD Work Phone: [facility] 04-01-2023 16:07-0400 Diastolic blood pressure 72 mm[Hg] Henok Martinez MD Work Phone: [facility] 04-01-2023 16:07-0400 Heart rate 83 /min Henok Martinez MD Work Phone: [facility] 04-01-2023 16:07-0400 SaO2% (BldA) [Mass fraction] 100 % Henok Martinez MD Work Phone: [facility] 04-01-2023 16:07-0400 Systolic blood pressure 172 mm[Hg] Henok Martinez MD Work Phone: [facility] 03-31-2023 01:31-0400 Body temperature 98.6 [degF] Dr. Henok Martinez Work Phone: [facility] 03-31-2023 01:31-0400 Diastolic blood pressure 61 mm[Hg] Dr. Henok Martinez Work Phone: 3(826)769-094164 [place] [address] 03-31-2023 01:31-0400 Heart rate 74 /min Dr. Henok Martinez Work Phone: 2(196)418-342271 [place] [address] 03-31-2023 01:31-0400 Respiratory rate 16 /min Dr. Henok Martinez Work Phone: [facility] 03-31-2023 01:31-0400 SaO2% (BldA) [Mass fraction] 99 % Dr. Henok Martinez Work Phone: 1(077)478-821464 [place] [address] 03-31-2023 01:31-0400 Systolic blood pressure 120 mm[Hg] Dr. Henok Martinez Work Phone: 4(742)635-017571 [place] [address] 03-30-2023 21:40-0400 Body height 152.[address] Henok Martinez Work Phone: 9(749)590-197971 [place] [address] 03-30-2023 21:40-0400 Body mass index (BMI) [Ratio] 32.8 kg/m2 Dr. Henok Martinez Work Phone: 7(158)460-276364 [place] [address] 03-30-2023 21:40-0400 Body weight 76.[address] Henok Martinez Work Phone: 5(040)910-123471 [place] [address] 03-18-2023 11:33-0400 Body height 152.[address] Henok Martinez Work Phone: 7(510)127-582664 [place] [address] 03-18-2023 11:33-0400 Body weight 78.[address] Henok Martinez Work Phone: 8(446)330-169571 [place] [address] 03-15-2023 09:45-0400 Body mass index (BMI) [Ratio] 33.5 kg/m2 Dr. Henok Martinez Work Phone: [facility] 03-07-2023 08:33-0400 Body height 152.[address] Henok Martinez Work Phone: [facility] 03-07-2023 08:33-0400 Body mass index (BMI) [Ratio] 33.5 kg/m2 Dr. Henok Martinez Work Phone: [facility] 03-07-2023 08:33-0400 Body weight 78.[address] Henok Martinez Work Phone: 7(775)792-462264 [place] [address] 03-07-2023 08:33-0400 Diastolic blood pressure 96 mm[Hg] Dr. Henok Martinez Work Phone: 3(182)406-057064 [place] [address] 03-07-2023 08:33-0400 Heart rate 78 /min Dr. Henok Martinez Work Phone: 3(984)674-862764 [place] [address] 03-07-2023 08:33-0400 Respiratory rate 18 /min Dr. Henok Martinez Work Phone: 8(947)408-913764 [place] [address] 03-07-2023 08:33-0400 Systolic blood pressure 160 mm[Hg] Dr. Henok Martinez Work Phone: 2(897)073-797264 [place] [address] 02-25-2023 13:39-0400 Body height 149.[address] [facility] 02-25-2023 13:39-0400 Body weight 75.[address] [facility] 02-08-2023 15:45-0400 Body weight 75.66 kg Sadia Westford WEIGHER AND CHARGER.CRATE BUILDER Work Phone: [facility] 02-08-2023 15:45-0400 Diastolic blood pressure 80 mm[Hg] Sadia Braulio WEIGHER AND CHARGER.CRATE BUILDER Work Phone: [facility] 02-08-2023 15:45-0400 Systolic blood pressure 120 mm[Hg] Sadia Westford WEIGHER AND CHARGER.CRATE BUILDER Work Phone: [facility] 01-25-2023 14:16-0400 Diastolic blood pressure 70 mm[Hg] Henok Martinez MD Work Phone: [facility] 01-25-2023 14:16-0400 Systolic blood pressure 146 mm[Hg] Henok Martinez MD Work Phone: [facility] 01-25-2023 13:38-0400 Body height 149.9 cm Henok Martinez MD Work Phone: [facility] 01-25-2023 13:38-0400 Body weight 76.75 kg Henok Martinez MD Work Phone: [facility] 01-25-2023 13:38-0400 Heart rate 82 /min Henok Martinez MD Work Phone: [facility] 01-25-2023 13:38-0400 SaO2% (BldA) [Mass fraction] 97 % Heonk Martinez MD Work Phone: [facility] 11-23-2022 14:00-0500 Diastolic blood pressure 76 mm[Hg] Mi Nurse Work Phone: [facility] 11-23-2022 14:00-0500 Heart rate 76 /min Mi Nurse Work Phone: [facility] 11-23-2022 14:00-0500 Systolic blood pressure 141 mm[Hg] Mi Nurse Work Phone: [facility] 11-16-2022 13:11-0500 Body weight 75.75 kg Pul Wstr Work Phone: [facility] 10-26-2022 13:58-0500 Diastolic blood pressure 80 mm[Hg] Henok Martinez MD Work Phone: [facility] 10-26-2022 13:58-0500 Systolic blood pressure 150 mm[Hg] Henok Martinez MD Work Phone: [facility] 10-26-2022 13:34-0500 Body weight 77.11 kg Henok Martinez MD Work Phone: [facility] 10-26-2022 13:34-0500 Heart rate 92 /min Henok Martinez MD Work Phone: [facility] 10-26-2022 13:34-0500 SaO2% (BldA) [Mass fraction] 98 % Henok Martinez MD Work Phone: [facility] 10-12-2022 14:32-0500 Body height 149.9 cm Pulm Wstr Work Phone: [facility] 10-12-2022 14:32-0500 Body weight 75.3 kg Pulm Wstr Work Phone: [facility] 10-12-2022 14:32-0500 Heart rate 76 /min Pulm Wstr Work Phone: [facility] 10-12-2022 14:32-0500 Respiratory rate 12 /min Pulm Wstr Work Phone: [facility] 10-12-2022 14:32-0500 SaO2% (BldA) [Mass fraction] 98 % Pulm Wstr Work Phone: [facility] 10-01-2022 15:27-0500 Body weight 76.66 kg Henok Martinez MD Work Phone: [facility] 10-01-2022 15:27-0500 Diastolic blood pressure 78 mm[Hg] Henok Martinez MD Work Phone: [facility] 10-01-2022 15:27-0500 Heart rate 107 /min Henok Martinez MD Work Phone: [facility] 10-01-2022 15:27-0500 SaO2% (BldA) [Mass fraction] 99 % Henok Martinez MD Work Phone: [facility] 10-01-2022 15:27-0500 Systolic blood pressure 152 mm[Hg] Henok Martinez MD Work Phone: [facility] 09-05-2022 13:42-0500 Body height 154.9 cm Monet Calvo MD Work Phone: [facility] 09-05-2022 13:42-0500 Body temperature 98.4 [degF] Monet Calvo MD Work Phone: [facility] 09-05-2022 13:42-0500 Body weight 76.2 kg Monet Calvo MD Work Phone: [facility] 09-05-2022 13:42-0500 Diastolic blood pressure 94 mm[Hg] Monet Calvo MD Work Phone: [facility] 09-05-2022 13:42-0500 Heart rate 65 /min Monet Calvo MD Work Phone: [facility] 09-05-2022 13:42-0500 SaO2% (BldA) [Mass fraction] 97 % Monet Calvo MD Work Phone: [facility] 09-05-2022 13:42-0500 Systolic blood pressure 148 mm[Hg] Monet Calvo MD Work Phone: [facility] 01-26-2022 12:27-0400 Diastolic blood pressure 60 mm[Hg] Henok Martinez MD Work Phone: [facility] 01-26-2022 12:27-0400 Systolic blood pressure 138 mm[Hg] Henok Martinez MD Work Phone: [facility] 01-26-2022 09:58-0400 Body weight 74.39 kg Henok Martinez MD Work Phone: [facility] 01-26-2022 09:58-0400 Heart rate 60 /min Henok Martinez MD Work Phone: [facility] 01-26-2022 09:58-0400 Respiratory rate 16 /min Henok Martinze MD Work Phone: [facility] Encounters Encounter Date Encounter Type Care Provider Facility Start: 08-19-2025 End: 08-19-2025 ambulatory Mohit Paterson Facility:[facility] Start: 08-03-2025 End: 08-03-2025 Patient encounter procedure Mohit Brown DO -[facility] Work Phone: Start: 08-03-2025 End: 08-03-[address] Henok Martinez MD Work Phone: [facility] Start: 08-03-2025 End: 08-03-2025 ambulatory Mohit Paterson Facility:[facility] Start: 07-27-2025 End: 07-27-2025 ambulatory [facility] Facility:[facility] Start: 07-22-2025 ambulatory [facility] Start: 06-15-2025 End: 06-15-[address] Zachary Sarabia MD -[facility] Work Phone: Start: 06-15-2025 End: 06-15-[address] Henok Martinez MD Work Phone: -[facility] Start: 06-10-2025 End: 06-29-2025 Telephone encounter Henok Martinez MD Work Phone: [facility] Comment on above: Results Start: 06-09-2025 End: 06-09-2025 ambulatory [facility] Facility:[facility] Start: 06-09-2025 End: 06-09-2025 ambulatory [facility] Facility:[facility] Start: 06-09-2025 End: 06-09-2025 Patient encounter procedure Henok Martinez MD Work Phone: [facility] Comment on above: Cholangitis (HCC) (P rimary Dx); Obstruction of biliary stent, subsequent encounter; Cerebrovascular accident (CVA), unspecified mechanism (HCC); Atrial fibrillation, unspecified type (HCC); Hyperlipidemia, unspecified hyperlipidemia type; Atrial myxoma (HCC); Primary hypertension; Bronchiectasis without complication (HCC); Mild intermittent asthma without complication (HCC); Gastroesophageal reflux disease without esophagitis; 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); Pancreatic adenocarcinoma (HCC) Start: 06-02-2025 Non-patient / Non-visit Dr. Oniel fowler MD -[facility] Work Phone: Start: 06-01-2025 ambulatory Mohit Paterson [facility] Start: 06-01-2025 Non-patient / Non-visit Mohit Chantelle mo DO -[facility] Start: 06-01-2025 Non-patient / Non-visit Dr. Oniel fowler MD -[facility] Work Phone: Start: 05-31-2025 Non-patient / Non-visit Mohit Lockhart nd DO -[facility] Start: 05-31-2025 ambulatory Oniel Golden [facility] Start: 05-31-2025 End: 06-02-2025 Evaluation and management of inpatient Dr. Oniel Golden DO -[facility] Work Phone: Start: 05-28-2025 End: 05-31-2025 Refill Henok Martinez MD Work Phone: [facility] Comment on above: Refill Request Start: 05-26-2025 End: 05-26-2025 Patient encounter procedure Skyler Morton MA [facility] Comment on above: Population Health Na vigation Outreach ( [facility]EN[facility] // ) Start: 05-26-2025 End: 05-26-2025 ambulatory Skyler Morton MA [facility] Start: 05-26-2025 End: 05-26-2025 Subsequent hospital visit by physician [facility] Comment on above: Malignant neoplasm o f head of pancreas (HCC) [C25.0] Start: 05-25-2025 End: 05-25-2025 Telephone encounter Rico Diaz MD Work Phone: [facility] Comment on above: Appointment Start: 05-25-2025 End: 05-25-2025 Patient encounter procedure Juan Miguel Yusuf MD Work Phone: Hematology/Oncology Start: 05-25-2025 End: 05-25-2025 ambulatory Juan Miguel Yusuf MD Work Phone: Hematology/Oncology Comment on above: Malignant neoplasm o f head of pancreas (HCC) (Primary Dx); Adenocarcinoma of head of pancreas (HCC) Start: 05-13-2025 End: 05-20-2025 Telephone encounter Oma Linton RN Work Phone: Hematology/Oncology Comment on above: Future Appointment Start: 04-22-2025 End: 04-23-2025 Refill [facility]ok [facility] MD [facility] Phone: [facility] Comment on above: Refill Request Start: 04-19-2025 [...] Appointment Start: 04-06-2025 End: 04-06-2025 ambulatory AYAZ BAZZI Facility:[facility][1] Start: 04-06-2025 End: 04-06-2025 Telephone encounter Rico Diaz MD Work Phone: [facility] Comment on above: RUQ pain (Primary Dx ) Start: 04-06-2025 End: 04-06-2025 Office outpatient visit 40 minutes Ayaz Bazzi MD Work Phone: [facility] Comment on above: Pancreatic adenocarc inoma (HCC) (Primary Dx) Start: 04-01-2025 End: 04-01-2025 [facility] Start: 04-01-2025 End: 04-01-2025 Patient encounter procedure Skyler Morton MA [facility] Comment on above: Population Health Na vigation Outreach ( ); Opened In Error Start: 03-30-2025 End: 03-30-2025 Patient encounter procedure Henok Martinez MD Work Phone: [facility] Comment on above: Atrial fibrillation, unspecified type (HCC) (Primary Dx); History of CVA (cerebrovascular accident); Primary hypertension; Hyperlipidemia, unspecified hyperlipidemia type; Bronchiectasis without complication (HCC); Gastroesophageal reflux disease without esophagitis; 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); correction current use of anticoagulant therapy; Type 2 diabetes mellitus with hyperglycemia, with long-term current use of insulin (HCC) Start: 03-30-2025 End: 03-30-2025 ambulatory HENOK MARTINEZ Facility:[facility] Start: 03-19-2025 End: 05-19-2025 Follow-up encounter Henok Martinez MD Work Phone: [facility] Start: 03-18-2025 ambulatory [facility] Facility :[facility] Start: 03-15-2025 End: 03-15-2025 Telephone encounter Juan Miguel Yusuf MD Work Phone: Hematology/Oncology Comment on above: Patient Update Start: 03-10-2025 End: 03-10-2025 ambulatory Nicole Rodriguez RN Work Phone: [employer] Comment on above: Primary Care Coordin [...] Phone: [facility] Comment on above: RSV (respiratory syn cytial virus pneumonia) (Primary Dx); Bronchiectasis without complication (HCC); Pancreatic adenocarcinoma (HCC); Type 2 diabetes mellitus with hyperglycemia, with long-term current use of insulin (HCC); Primary hypertension Start: 02-24-2025 End: 02-24-2025 ambulatory [facility] Facility:[facility] Start: 02-23-2025 End: 02-23-2025 ambulatory Dasha Clemons RN [facility] Comment on above: You are scheduled fo r a port insertion at [facility] on 03/04 at 12:00 pm Start: 02-23-2025 End: 02-23-2025 E-mail encounter from caregiver Dasha Clemons RN [facility] Start: 02-23-2025 End: 02-24-2025 Telephone encounter Henok Martinez MD Work Phone: [facility] Comment on above: Appt Needs Reschedul ed Medication Request Start: 02-22-2025 End: 02-23-2025 Telephone encounter Oma Linton RN Work Phone: Hematology/Oncology Comment on above: Future Appointment Start: 02-22-2025 End: 02-22-2025 Subsequent hospital visit by physician Elysia [facility] Work Phone: Radiology Comment on above: Malignant neoplasm o f head of pancreas (HCC) [C25.0] Start: 02-22-2025 End: 02-22-2025 ambulatory [facility] Work Phone: Hematology/Oncology Comment on above: Malignant neoplasm o f head of pancreas (HCC) Start: 02-15-2025 End: 02-15-2025 Patient Outreach Radha Cagle RN [employer] Comment on above: Initial phone contac t for Transitional Care Management Sales Merchandising Specialist - H ospital Follow Up Start: 02-11-2025 End: 02-11-2025 Patient Outreach Gosia Bynum RN Work Phone: Supervisor [employer] Comment on above: Transition Of Care ( Hospital reach in call) Population Health Na vigation Outreach ([facility] Call) Start: 02-10-2025 End: 02-14-2025 Evaluation and management of inpatient [facility] Facility:[facility] Start: 02-09-2025 End: 02-09-2025 Telephone encounter Oma Linton RN Work Phone: Hematology/Oncology Comment on above: Care Coordination (F ollow up Note ) Start: 02-08-2025 End: 02-08-2025 Orders Only Pat Pepe RN [facility] Comment on above: Malignant neoplasm o f head of pancreas (HCC) (Primary Dx) Care Coordination (F ollow Up Note ) Dental Problem Start: 02-05-2025 End: 02-05-2025 Telephone encounter Rosa KUMAR Hematology/Oncology Comment on above: Social Work Services ; Psychosocial Assessment Social Work Services ; Family Support Patient Update Patient Question (co ugh) Start: 02-05-2025 End: 02-05-2025 ambulatory [facility] Facility:[facility] Start: 02-05-2025 End: 02-05-2025 Subsequent hospital visit by physician Elysia [facility] Work Phone: Radiology Comment on above: Malignant neoplasm o f head of pancreas (HCC) [C25.0] Start: 02-05-2025 End: 02-05-2025 ambulatory Treatment Rm 8 [facility] Work Phone: Hematology/Oncology Comment on above: Malignant neoplasm o f head of pancreas (HCC) (Primary Dx); Dyspnea and respiratory abnormalities Start: 02-04-2025 End: 02-05-2025 Telephone encounter Oma Linton RN Work Phone: Hematology/Oncology Comment on above: Care Coordination (F ollow up Note ) Start: 02-04-2025 End: 02-04-2025 Office outpatient visit 40 minutes Ayaz Bazzi MD Work Phone: [facility] GENERAL SURGERY DEPARTMENT Comment on above: Pancreatic adenocarc inoma (HCC) (Primary Dx) Start: 02-04-2025 End: 02-04-2025 ambulatory AYAZ BAZZI Facility:[facility][1] Start: 02-03-2025 End: 02-03-2025 Telephone encounter Financial Navigator Viraj Work Phone: Hematology/Oncology Comment on above: Benefits Investigati on Start: 02-01-2025 End: 02-01-2025 E-mail encounter from caregiver Dasha Clemons [facility] Rad[facility] Start: 02-01-2025 End: 02-01-2025 ambulatory Dasha Clemons [facility] Radiology Comment on above: Port placement on read instructions about holding Eliquis Start: 02-01-2025 End: 02-01-2025 Patient encounter procedure Henok Martinez MD Work Phone: [facility] [place] Comment on above: Pancreatic adenocarc inoma (HCC) (Primary Dx); correction current use of anticoagulant therapy; History of [...] Telephone encounter Henok Martinez MD Work Phone: [facility] Comment on above: glucometer Social Work Services Start: 01-28-2025 End: 01-28-2025 Telephone encounter Rosa KUMAR Hematology/Oncology Comment on above: Social Work Services Start: 01-28-2025 End: 01-28-2025 ambulatory Treatment Rm 6 Viraj [facility] Work Phone: Hematology/Oncology Comment on above: Malignant neoplasm o f head of pancreas (HCC) (Primary Dx) Start: 01-27-2025 End: 01-27-2025 wax blender [facility] Work Phone: Hematology/Oncology Comment on above: Encounter for educat ion (Primary Dx); 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) Start: 01-26-2025 End: 01-26-2025 ambulatory Danielle Disa RN Supervisor Chlorine Liquefaction Management Start: 01-26-2025 End: 01-26-2025 Telephone encounter Henok Martinez MD Work Phone: [facility] Comment on above: Constipation Transition Of Care ( Initial) Initial phone contact for Transitional Care Management Start: 01-25-2025 End: 01-25-2025 Telephone encounter Oma Linton RN Work Phone: Hematology/Oncology Comment on above: Care Coordination (I ntroduction/) avs 01/25 Start: 01-25-2025 End: 01-25-2025 ambulatory Juan Miguel Yusuf MD Work Phone: Hematology/Oncology Comment on above: Malignant neoplasm o f head of pancreas (HCC) Start: 01-25-2025 End: 01-25-2025 Patient encounter procedure Juan Miguel Yusuf MD Work Phone: Hematology/Oncology Start: 01-24-2025 End: 01-25-2025 Telephone encounter Yoni Pulliam DO Work Phone: Hematology/Oncology Comment on above: Appointment Start: 01-22-2025 End: 01-22-2025 Evaluation and management of inpatient VIN GUERRA Facility:[facility] Start: 01-21-2025 End: 01-21-2025 Telephone encounter Ashutosh Freeman MD Work Phone: [facility] Hematology/Oncology Start: 01-19-2025 End: 01-20-2025 Telephone encounter Henok Martinez MD Work Phone: [facility] Comment on above: diabetic supplies (L ibre 3 CGM system) Start: 01-15-2025 End: 01-15-2025 Evaluation and management of inpatient ADRIÁN HORTA Facility:[facility] Start: 01-14-2025 End: 01-23-2025 Evaluation and management of inpatient GUILLE GARNICA Facility:[facility] Start: 01-14-2025 Non-patient / Non-visit Dr. Danielle Wu [facility] Inpatient Physicians Work Phone: Start: 01-13-2025 Non-patient / Non-visit Dr. Danielle Wu [facility] Work Phone: Start: 01-12-2025 Non-patient / Non-visit Dr. Danielle Wu [facility] Work Phone: Start: 01-12-2025 End: 01-12-2025 ambulatory Henok Martinez Facility:[facility] Start: 01-11-2025 Non-patient / Non-visit Mohit Lockhart nd DO [facility] Start: 01-11-2025 Non-patient / Non-visit Dr. Danielle Wu [facility] In[facility] Work Phone: Start: 01-10-2025 ambulatory Jose Wu Facilit y:[facility] Start: 01-10-2025 End: 01-14-2025 Evaluation and management of inpatient Dr. Jose Wu DO -Medical Surgical 3 Work Phone: Start: 01-10-2025 Evaluation and management of inpatient Dr. Oniel Golden DO -Medical Surgical 3 Work Phone: Start: 01-04-2025 End: 01-04-2025 ambulatory Iona Paul RN Work Phone: Supervisor Chlorine Liquefaction Management Comment on above: Started Initial enro llment outreach for Chronic Disease Management Start: 12-15-2024 End: 12-15-2024 Refill Henok Martinez MD Work Phone: [facility] Comment on above: Refill Request Start: 11-17-2024 End: 11-17-2024 E-mail encounter from caregiver Angelia Hart APRN.CRATE BUILDER Work Phone: Pulmonary Medicine Start: 11-17-2024 End: 11-17-2024 Follow-up encounter Angelia Hart APRN.CRATE BUILDER Work Phone: Pulmonary Medicine Comment on above: follow-up from visit Start: 11-17-2024 End: 11-17-2024 ambulatory HENOK MARTINEZ Facility:[facility] Start: 11-17-2024 End: 11-17-2024 Office outpatient visit 25 minutes Angelia Hart WEIGHER AND CHARGER.CRATE BUILDER Work Phone: Pulmonary Medicine Comment on above: Mild persistent asth ma without complication (Primary Dx); Cough, unspecified type; Hemoptysis; Bronchiectasis without complication (HCC); Dysphagia, unspecified type Start: 11-12-2024 End: 11-12-2024 ambulatory HENOK MARTINEZ Facility:[facility] Start: 11-12-2024 End: 11-12-2024 Subsequent hospital visit by physician [facility] 1 Work Phone: Radiology Comment on above: Epigastric pain [R10 .13] Start: 11-09-2024 End: 11-09-2024 Patient encounter procedure Meliza Plasencia CCC-NET SOFTWARE ENGINEER Work Phone: [facility] Speech Therapy Comment on above: Dysphagia, oropharyn geal phase (Primary Dx) Start: 11-09-2024 End: 11-09-2024 ambulatory Meliza Plasencia CCC-NET SOFTWARE ENGINEER Work Phone: [facility] Speech Therapy Start: 11-09-2024 End: 11-09-2024 Subsequent hospital visit by physician Gi/Gu [facility] Work Phone: Radiology Comment on above: Oropharyngeal dyspha melissa [R13.12] Start: 11-06-2024 End: 11-14-2024 Telephone encounter Henok Martinez MD Work Phone: [facility] Comment on above: Results Start: 11-05-2024 End: 11-05-2024 Subsequent hospital visit by physician Xr [facility] Work Phone: Radiology Comment on above: Hemoptysis [R04.2] Start: 11-05-2024 End: 11-05-2024 ambulatory [facility] Facility:[facility] Start: 11-04-2024 End: 11-04-2024 Patient encounter procedure Henok Martinez MD Work Phone: [facility] Comment on above: Cerebrovascular acci dent (CVA), unspecified mechanism (HCC) (Primary Dx); Type 2 diabetes mellitus without complication, without long-term current use of insulin (HCC); Atrial fibrillation, unspecified type (HCC); Atrial myxoma; Primary hypertension; Hyperlipidemia, unspecified hyperlipidemia type; Bronchiectasis without complication (HCC); Gastroesophageal reflux disease without esophagitis; History of CVA (cerebrovascular accident); correction current use of anticoagulant therapy; Epigastric pain; Hemoptysis Start: 11-04-2024 End: 11-04-2024 [facility] Facility:[facility] Start: 10-13-2024 End: 10-13-2024 [facility] Start: 10-13-2024 End: 10-13-2024 Office outpatient visit 15 minutes Virginia Garcia APRN.CNP Work Phone: [facility] Comment on above: Acute bronchitis, un specified organism (Primary Dx); Oropharyngeal dysphagia Start: 09-17-2024 End: 09-17-2024 [facility] Start: 09-17-2024 End: 09-17-[address] Henok Martinez MD -Physical Therapy Work Phone: Start: 07-01-2024 End: 07-01-2024 Patient encounter procedure Henok Martinez MD Work Phone: [facility] Comment on above: Cervical radicular p ain (Primary Dx); Atrial fibrillation, unspecified type (HCC); Hyperlipidemia, unspecified hyperlipidemia type; Primary hypertension; Type 2 diabetes mellitus without complication, without long-term current use of insulin (HCC); History of CVA (cerebrovascular accident) Start: 06-11-2024 ambulatory Nancy Medley MD Work Phone: Pulmonary Medicine Comment on above: Question regarding X R RIBS/CHEST 3V AP RIB/OBLS/CXR RIGHT Start: 06-06-2024 End: 06-06-2024 Subsequent hospital visit by physician Xr [facility] Work Phone: Radiology Comment on above: Rib pain on right si de [R07.81] Start: 06-05-2024 End: 06-05-2024 Patient encounter procedure Nancy Medley MD Work Phone: Pulmonary Medicine Comment on above: Mild intermittent as thma without complication (Primary Dx); Bronchiectasis without complication (HCC); Rib pain on right side Start: 06-02-2024 Refill Emma linn OD Work Phone: Ophthalmology Comment on above: Refill Request Start: 05-11-2024 Refill Clarita Boggs APRN.CNP Work Phone: [facility] Comment on above: Refill Request Start: 05-04-2024 Telephone encounter Henok Martinez MD Work Phone: [facility] Comment on above: Results Start: 05-01-2024 End: 05-01-2024 Subsequent hospital visit by physician Xr [facility] Work Phone: Radiology Comment on above: Abnormal x-ray [R93. 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); PCO (posterior capsular opacification), left; Type 2 diabetes mellitus without complication, without long-term current use of insulin (HCC); Pseudophakia of both eyes; Presbyopia Start: 03-20-2024 Refill Henok Martinez MD Work Phone: [facility] Comment on above: Refill Request Start: 03-06-2024 Telephone encounter Henok Martinez MD Work Phone: [facility] Comment on above: Results Start: 03-05-2024 Telephone encounter Henok Martinez MD Work Phone: [facility] Comment on above: Results Start: 03-04-2024 End: 03-04-2024 Subsequent hospital visit by physician Xr [facility] Work Phone: Radiology Comment on above: Bronchitis [J40] Start: 03-04-2024 End: 03-04-2024 Patient encounter procedure Henok Martinez MD Work Phone: [facility] Comment on above: Type 2 diabetes amy itus without complication, without long- term current use of insulin (HCC) (Primary Dx); Mild intermittent asthma without complication; Bronchiectasis without complication (HCC); Bronchitis; Weight loss Start: 03-02-2024 Telephone encounter Henok Martinez MD Work Phone: [facility] Comment on above: Patient Update; Nathalie ent Question Start: 02-25-2024 End: 02-25-2024 Emergency department patient [facility]: Start: 02-21-2024 Telephone encounter Henok Martinez MD Work Phone: [facility] Comment on above: Medication Request; Patient Update Start: 02-19-2024 End: 02-19-2024 Patient encounter procedure Lana Zeke BEGUM.CRATE BUILDER Work Phone: [facility] Comment on above: Sore throat (Primary Dx); URI, acute Start: 02-07-2024 End: 02-07-2024 Office outpatient visit 15 minutes Fazal Law SHY.CRATE BUILDER Work Phone: [facility] Comment on above: Diarrhea, unspecifie d type (Primary Dx) Start: 12-26-2023 Refill Clarita Boggs APRN.CRATE BUILDER Work Phone: [facility] Comment on above: Refill Request Start: 12-16-2023 End: 12-16-2023 Patient encounter procedure Henok Martinez MD Work Phone: [facility] Comment on above: Cerebrovascular acci dent (CVA), unspecified mechanism (HCC) (Primary Dx); History of CVA (cerebrovascular accident); Primary hypertension; Atrial fibrillation, unspecified type (HCC); Atrial myxoma; Bronchiectasis without complication (HCC); Type 2 diabetes mellitus without complication, without long-term current use of insulin (HCC) Start: 11-21-2023 End: 11-21-[address] Henok Martinez Work Phone: [facility] Work Phone: Start: 10-04-2023 End: 10-04-[address] Henok Martinez Work Phone: [facility] Work Phone: Start: 10-04-2023 End: 10-04-[address] Henok Martinez Work Phone: [facility] Work Phone: Start: 09-18-2023 Telephone encounter Belinda Muller PA-C [facility] Phone[facility] Start: 09-05-2023 End: 09-05-2023 Patient encounter procedure Belinda Muller PA-C Work Phone: [facility] Comment on above: Cerebrovascular acci dent (CVA), unspecified mechanism (HCC) (Primary Dx); Atrial fibrillation, unspecified type (HCC); Primary hypertension; Atrial myxoma; correction current use of anticoagulant therapy; Hyperlipidemia, unspecified hyperlipidemia type; History of CVA (cerebrovascular accident); Impaired cognition; Bronchiectasis without complication (HCC); Mild intermittent asthma without complication; Type 2 diabetes mellitus without complication, without long-term current use of insulin (HCC); Gastroesophageal reflux disease without esophagitis; History of uterine cancer; Encounter for immunization; Pill dysphagia; Left ear pain Start: 08-05-2023 Refill Henok Martinez MD Work Phone: [facility] Comment on above: Refill Request Start: 07-30-2023 End: 07-30-2023 Emergency department patient visit Dr. Henok Martinez Work Phone: [facility]-Emergency Department Work Phone: Start: 06-25-2023 End: 06-25-2023 Patient encounter procedure Emma Mcnally OD Work Phone: Ophthalmology Comment on above: Dry eye syndrome of bilateral lacrimal glands (Primary Dx); PCO (posterior capsular opacification), left; Type 2 diabetes mellitus without complication, without long-term current use of insulin ([facility]); Pseudophakia of both eyes; Presbyopia Start: 06-19-2023 End: 06-19-[address] Henok Martinez Work Phone: [facility] Work Phone: Start: 06-18-2023 End: 06-18-[address] Henok Martinez Work Phone: [facility] Neurology Work Phone: Start: 04-22-2023 End: 04-22-2023 Emergency department patient visit Dr. Henok Martinez Work Phone: [facility]-Emergency Department Start: 04-15-2023 End: 04-15-2023 Office outpatient visit 15 minutes Clarita Boggs APRN.CNP Work Phone: [facility] Comment on above: Primary hypertension (Primary Dx); History of CVA (cerebrovascular accident); Atrial fibrillation, unspecified type (HCC) Start: 04-05-2023 End: 04-05-2023 Emergency department patient visit Dr. Henok Martinez Work Phone: [facility]-Emergency Department Start: 04-01-2023 End: 04-01-2023 Patient encounter procedure Henok Martinez MD Work Phone: [facility] Medicine [place] Comment on above: Primary hypertension (Primary Dx); Type 2 diabetes mellitus without complication, without long-term current use of insulin (HCC) Start: 03-30-2023 End: 03-31-2023 Emergency department patient visit Dr. Henok Martinez Work Phone: [facility]-Emergency Department Start: 03-18-2023 Non-patient / Non-visit Dr. Bernardo Martinez Work Phone: [facility] Start: 03-18-2023 End: 03-18-2023 Admission to same day surgery center Dr. Henok Martinez Work Phone: [facility]-Contact Lens Polisher/Special Procedures Start: 03-18-2023 End: 03-18-[address] Henok Martinez Work Phone: [facility] Work Phone: Start: 03-07-2023 End: 03-07-[address] Henok Martinez Work Phone: [facility] Work Phone: Start: 03-07-2023 End: 03-07-[address] Henok Martinez Work Phone: [facility] Start: 03-07-2023 End: 03-07-[address] Henok Martinez Work Phone: [facility] Start: 02-25-2023 End: 02-25-[address] Nutrition Therapy Comment on above: Assessment; Patient Education Start: 02-15-2023 End: 02-15-2023 Patient encounter procedure Emma De Uli OD Work Phone: Ophthalmology Comment on above: Type 2 diabetes amy itus without complication, without long- term current use of insulin (HCC) (Primary Dx); Pseudophakia of both eyes; Presbyopia Start: 02-14-2023 Telephone encounter Sadia [facility] gurjit WEIGHER AND CHARGER.CRATE BUILDER Work Phone: OB/Gynecology Comment on above: Results Start: 02-13-2023 End: 02-13-2023 Subsequent hospital visit by physician Tatyana [facility] ([facility]) Work Phone: Cat Scan Comment on above: Pelvic and perineal pain [R10.2] Start: 02-08-2023 End: 02-08-2023 Patient encounter procedure Sadia Ramsey APRN.CNP Work Phone: OB/Gynecology Comment on above: Vaginal bleeding (Pr imary Dx); Pelvic and perineal pain; History of uterine cancer Start: 01-25-2023 End: 01-25-2023 Patient encounter procedure Henok Martinez MD Work Phone: [facility] [place] Comment on above: Primary hypertension (Primary Dx); Type 2 diabetes mellitus without complication, without long-term current use of insulin (HCC); Atrial myxoma; History of uterine cancer; History of CVA (cerebrovascular accident); Gastroesophageal reflux disease without esophagitis; Bronchiectasis without complication (HCC); Mild intermittent asthma without complication Start: 11-23-2022 End: 11-23-2022 Nursing evaluation of patient and report Mi Nurse Work Phone: [facility] [place] Comment on above: Primary hypertension (Primary Dx) Start: 11-23-2022 Telephone encounter Henok Martinez MD Work Phone: [facility] [place] Comment on above: Blood Pressure Check (/) Start: 11-22-2022 End: 11-22-2022 Patient encounter procedure Nancy Medley MD Work Phone: Pulmonary Medicine Comment on above: Bronchiectasis witho ut complication (HCC) (Primary Dx); Mild intermittent asthma without complication Start: 11-20-2022 End: 11-20-2022 Subsequent hospital visit by physician [facility] ([facility]) Work Phone: Cat Scan Comment on above: Chronic cough [R05.3 ] Start: 11-16-2022 End: 11-16-2022 ambulatory Pulm Lab [facility] Work Phone: PULM LAB COUNTS INCLUDE [facility] BEDS AT [facility] Comment on above: Spirometry Start: 11-16-2022 End: 11-16-2022 Patient encounter procedure Pulm Lab [facility] Work Phone: [facility] [employer] Comment on above: Chronic cough (Prima ry Dx); Abnormal chest x-ray; Mild persistent asthma without complication Start: 10-26-2022 End: 10-26-2022 Subsequent hospital visit by physician Xr [facility] [place] Work Phone: Radiology Comment on above: Cough, unspecified t ype [R05.9] Start: 10-26-2022 End: 10-26-2022 Patient encounter procedure Henok Martinez MD Work Phone: [facility] Comment on above: Cough, unspecified t ype (Primary Dx); Primary hypertension Start: 10-23-2022 Refill Henok Martinez MD Work Phone: [facility] Comment on above: Refill Request Start: 10-15-2022 Telephone encounter Henok Martinez MD Work Phone: [facility] Comment on above: Results Start: 10-12-2022 End: 10-12-2022 ambulatory Pulm Lab [facility] Work Phone: PULM LAB [facility] Comment on above: Spirometry Start: 10-12-2022 End: 10-12-2022 Patient encounter procedure Pulm Lab [facility] Work Phone: [facility] [employer] Start: 10-01-2022 End: 10-01-2022 Patient encounter procedure Henok Martinez MD Work Phone: [facility] Comment on above: Atrial myxoma (Prima ry Dx); Primary hypertension; Type 2 diabetes mellitus without complication, without long-term current use of insulin (HCC); History of CVA (cerebrovascular accident); Mild intermittent asthma without complication Start: 09-25-2022 ambulatory Chanel avila RN LD SURGERY Start: 09-17-2022 Telephone encounter Henok Martinez MD Work Phone: [facility] Comment on above: Medication Problem ( Dry cough) Start: 09-05-2022 Telephone encounter Monet Krishnamurthy MD Work Phone: General Surgery Comment on above: 10/04/2022 colon lodi Start: 09-05-2022 End: 09-05-2022 Patient encounter procedure Monet Calvo MD Work Phone: General Surgery Comment on above: Change in bowel habi ts (Primary Dx) Start: 07-16-2022 Refill Henok Martinez MD Work Phone: [facility] Comment on above: Refill Request (Need s 90 days & New Pharmacy) Start: 05-18-2022 Refill Henok Martinez MD Work Phone: [facility] Comment on above: Refill Request Start: 04-23-2022 Telephone encounter Henok Martinez MD Work Phone: [facility] [place] Comment on above: Medication Request Start: 01-29-2022 Telephone encounter Henok Martinez MD Work Phone: [facility] Comment on above: Results; Patient Upd ate Start: 01-26-2022 End: 01-26-2022 Patient encounter procedure Henok Martinez MD Work Phone: [facility] Comment on above: History of CVA (cere brovascular accident) (Primary Dx); Type 2 diabetes mellitus without complication, without long-term current use of insulin (HCC); Primary hypertension; Atrial myxoma Procedures Date Procedure Procedure Detail Performing Clinician Start: 06-01-[address] Henok Martinez MD Work Phone: Start: 06-01-[address] Henok Magaña Work Phone: Start: 06-01-2025 Fluoroscopy guided endoscopic retrograde cholangiopancreatography Dr. Henok Martinez MD Work Phone: Start: 06-01-[address] Henok Martinez MD Work Phone: Start: 06-01-2025 Fluoroscopy guided endoscopic retrograde cholangiopancreatography Dr. Henok Martinez MD Work Phone: Start: 06-01-[address] Carlos Martinez MD Work Phone: Start: 05-31-2025 Serum inorganic phosphate measurement Dr. Henok Martinez MD Work Phone: Start: 05-30-2025 CT of thorax, abdomen and pelvis with contrast Dr. Henok Martinez MD Work Phone: Start: 05-30-2025 Urnls dip stick/tablet reagent auto microscopy Dr. Henok Martinez MD Work Phone: Start: 05-30-[address] Carlos Martinez MD Work Phone: Start: 05-30-[address] Henok Martinez MD Work Phone: Start: 05-30-2025 SARS-CoV-2, [...] Phone: Start: 01-12-[address] Henok Magaña Work Phone: Start: 01-09-2025 Computed tomography of abdomen and pelvis with intravenous contrast Dr. Henok Martinez MD Work Phone: Start: 11-09-2024 Radiologic exam swallow function contrast study Virginia Garcia WEIGHER AND CHARGER.CRATE BUILDER Work Phone: Start: 11-05-2024 Radiologic exam chest 2 views Henok Martinez MD Work Phone: Start: 06-06-2024 Radex ribs uni w/posteroant ch minimum 3 views aNncy Medley MD Work Phone: Start: 05-01-2024 Radiologic exam chest 2 views Henok Martinez MD Work Phone: Start: 05-01-2024 Adult depression screening assessment Emma Mcnally OD Work Phone: Start: 03-04-2024 Radiologic exam chest 2 views Henok Martinez MD Work Phone: Start: 02-25-2024 Plain chest X-ray Dr. Henok Martinez Work Phone: Start: 02-19-2024 COVID & INFLUENZA A/B & RSV NAAT, ROUTINE Lana Alanis APRN.CRATE BUILDER Work Phone: Start: 02-19-2024 STREP A MOLECULAR [...] Ct pelvis w/contrast material Sadia [facility] gurjit WEIGHER AND CHARGER.CRATE BUILDER Work Phone: Start: 02-08-2023 Urnls dip stick/tablet rgnt auto w/o microscopy Sadia [place] WEIGHER AND CHARGER.CRATE BUILDER Work Phone: Start: 11-20-2022 Ct thorax w/o [...] 11-05-2025 Hepatitis B screening Urine Albumin:Creatinine Ratio [facility] Start: 11-05-2025 Hepatitis B surface antibody level LDL Cholesterol [facility] Start: 09-09-2025 Hemoglobin A1c measurement HbA1C [facility] Start: 07-27-2025 End: 07-27-2025 Patient encounter procedure 07/27/2025 2:00 PM EDT Office Visit Family Virgie Mendoza [address] [place] [id number] Henok Martinez MD [address] [place] [id number] 2 mo follow up Family Virgie Mendoza Comment on above: 2 mo follow up Start: 07-01-2025 Covid-19 Vaccine () Covid-19 Vaccine () [facility] Comment on above: Postponed from 06/28/2024 (Declined at t his time) Start: 07-01-2025 Covid-19 Vaccine ( season) Covid-19 Vaccine ( season) [facility] Comment on above: Postponed from 06/28/2024 (Declined at t his time) Start: 07-01-2025 Covid-19 Vaccine (3 - Pfizer risk series) Covid-19 Vaccine (3 - Pfizer risk series) [facility] Comment on above: Postponed from 03/29/2021 (Declined at t his time) Start: 07-01-2025 Shingrix Vaccine (1 of 2) Shingrix Vaccine (1 of 2) [facility] Comment on above: Postponed from 1990 (Declined at t his time) Postponed from 06/17 (Declined at this time) Start: 07-01-2025 Urine microalbumin profile DTaP,Tdap,Td Vaccine (1 - Tdap) [facility] Comment on above: Postponed from 1959 (Declined at t his time) Start: 06-28-2025 Influenza vaccination [facility] Start: 06-24-2025 End: 06-24-2025 Patient encounter procedure 06/24/2025 9:15 AM EDT Appointment [address] [address] Rico Diaz MD [address] [facility] [place] [place] [phone] Pt on Eliquis and aware to stop 3 days prior, not on diabetic meds to stop [facility] Comment on above: Pt on Eliquis and aware to stop 3 days p rior, not on diabetic meds to stop Start: 2025 End: 09-16-2025 Basic metabolic 2000 panel - Serum or Plasma BASIC METABOLIC PANEL Lab Routine Hyponatremia Expected: 2025, Expires: 09/16/2025 [facility] Work Phone: Comment on above: Expected: 2025, Expires: Start: 2025 End: 2025 ambulatory 2025 10:40 AM EDT PAT Pre Surgical Testing [address] [place] [address] Diaz on 06/24 9:15am Pre Surgical Testing Comment on above: ERCP scheduled with Dr Diaz on 06/24 9:1 5am Start: 06-04-2025 End: 06-04-2025 Patient encounter procedure Radiation Oncology Comment on above: OV 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] Start: 06-04-2025 End: 06-04-2025 ambulatory 06/04/2025 10:10 AM EDT Visit (SP) Office Hematology/Oncology [address] [place] [address] Juan Miguel Yusuf MD [address] [place] [address] OV/CT 05/26* Hematology/Oncology Comment on above: OV/CT 05/26* Start: 06-02-2025 Patient discharge [facility] Start: 06-02-2025 Serum inorganic phosphate measurement [facility] Start: 06-01-2025 Following clinical pathway protocol [facility] Start: 06-01-2025 [facility] Start: 05-31-2025 Referral to gastroenterology service [facility] Start: 05-31-2025 Application of intermittent pneumatic compression device [facility] Start: 05-31-2025 Ambulation without limitation [facility] Start: 05-31-2025 Aspiration precautions [facility] Start: 05-31-2025 Assessment of risk of venous thromboembolism [facility] Start: 05-31-2025 Care regimes management [facility] Start: 05-31-2025 Insertion of catheter into peripheral vein [facility] Start: 05-31-2025 Measuring intake and output [facility] Start: 05-31-2025 Notification of physician [facility] Start: 05-31-2025 Oxygen therapy [facility] Start: 05-31-2025 Palliative care [facility] Start: 05-31-2025 Providing care according to standard [facility] Start: 05-31-2025 Referral to service [facility] Start: 05-31-2025 End: 05-31-2025 [facility] Start: 05-31-2025 Following clinical pathway protocol [facility] Start: 05-31-2025 Verification routine [facility] Start: 05-31-2025 Admission procedure [facility] Start: 05-31-2025 Hospital admission, emergency, from emergency room, medical nature [facility] Start: 05-30-2025 [facility] Start: 05-30-2025 Bacteria identified in Blood by Culture Blood Culture [facility] Start: 05-30-2025 Blood culture Blood Culture [facility] Start: 05-26-2025 Subsequent hospital visit by physician 05/26/2025 1:28 PM EDT Hospital Encounter Cat Scan [address] [place] [address] 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) [C25.0] Cat Scan Comment on above: Malignant neoplasm of head of pancreas ( HCC) [C25.0] Start: 05-26-2025 End: 05-26-2025 Patient encounter procedure Cat Scan Comment on above: Malignant neoplasm of head of pancreas ( HCC) [C25.0] Start: 05-26-2025 End: 05-26-2025 ambulatory 05/26/2025 10:30 AM EDT Infusion Center Hematology/Oncology [address] [place] [address] (SO)CBC(PORT)D15 GEMZAR ABRAXAZANE* Hematology/Oncology Comment on above: (SO)CBC(PORT)D15 GEMZAR ABRAXAZANE* Start: 05-25-2025 End: 08-24-2025 Cancer Ag 19-9 [Units/volume] in Serum or Plasma [facility] Comment on above: Expected: 05/25/2025, Expires: Start: 05-25-2025 End: 05-25-2025 ambulatory 05/25/2025 12:00 PM EDT Visit (SP) Office Hematology/Oncology [address] [place] [address] Juan Miguel Yusuf MD [address] [place] [address] OV* BACK IN [facility] Hematology/Oncology Comment on above: OV* BACK IN TOWN Start: 05-19-2025 End: 05-19-2025 ambulatory 05/19/2025 11:00 AM EDT Infusion Center Hematology/Oncology [address] [place] [address] (SO)CBC(PORT)D8 GEMZAR ABRAXANE* Hematology/Oncology Comment on above: (SO)CBC(PORT)D8 GEMZAR ABRAXANE* Start: 05-12-2025 End: 05-12-2025 ambulatory 05/12/2025 11:00 AM EDT Infusion Center Hematology/Oncology [address] [place] [address] QMO GEMZAR ABRAXANE(PORT)/C4-6/LAB &OV 05/10* Hematology/Oncology Comment on above: QMO GEMZAR ABRAXANE(PORT)/C4-6/LAB&OV * Start: 05-10-2025 End: 05-10-2025 ambulatory Hematology/Oncology Comment on above: (SO)CBC/CMP(S)(PORT)* OV/LAB EARLY(PORT)/C HEMO 05/12* PARAMJIT Start: 05-05-2025 End: 05-05-2025 ambulatory 05/05/2025 11:00 AM EDT Infusion Center Hematology/Oncology [address] [place] [address] (SO)CBC(PORT)D8 GEMZAR ABRAXANE* Hematology/Oncology Comment on above: (SO)CBC(PORT)D8 GEMZAR ABRAXANE* Start: 05-01-2025 Anxiety Screening Anxiety Screening [facility] Start: 05-01-2025 Depression Screening Depression Screening [facility] Start: 05-01-2025 Diabetic foot examination Diabetic Foot Exam [facility] Start: 04-29-2025 End: 04-29-2025 Patient encounter procedure 04/29/2025 2:45 PM EDT Office Visit [facility] Ophthalmology [address] [place] [address] Emma Mcnally, OD [address] [place] [address] diabetic eye exam Ophthalmology Comment on above: diabetic eye exam Start: 04-29-2025 End: 07-29-2025 CBC W Auto Differential panel - Blood COMPLETE BLOOD COUNT AND DIFFERENTIAL Lab Routine 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) Expected: 04/29/2025, Expires: 07/29/2025 [facility] Work Phone: Comment on above: Expected: 04/29/2025, Expires: Start: 04-29-2025 End: 07-29-2025 Comprehensive metabolic 2000 panel - Serum or Plasma COMPREHENSIVE METABOLIC PANEL Lab Routine 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) Expected: 04/29/2025, Expires: 07/29/2025 [facility] Comment on above: Expected: 04/29/2025, Expires: Start: 04-29-2025 End: 07-29-2025 Hemoglobin A1c in Blood HEMOGLOBIN A1C Lab Routine Type 2 diabetes mellitus with hyperglycemia, with long-term current use of insulin ([facility]) Expected: 04/29/2025, Expires: 07/29/2025 [facility] Comment on above: Expected: 04/29/2025, Expires: Start: 04-28-2025 Glaucoma screening Dilated Retinal Exam [facility] Start: 04-28-2025 End: 04-28-2025 ambulatory 04/28/2025 10:30 AM [facility] Hematology/Oncology [address] [place] [address] (SO)CBC(PORT)D15 GEMZAR ABRAXAZANE* Hematology/Oncology Comment on above: (SO)CBC(PORT)D15 GEMZAR ABRAXAZANE* Start: 04-26-2025 Influenza vaccination Influenza Vaccine (#1) [facility] Comment on above: Postponed from 06/28/2024 (Declined at t his time) Start: 04-22-2025 End: 04-22-2025 ambulatory 04/22/2025 11:00 AM [facility] Hematology/Oncology [address] [place] [address] QMO GEMZAR ABRAXANE(PORT)/C4-6/LAB &OV 04/21* Hematology/Oncology Comment on above: QMO GEMZAR ABRAXANE(PORT)/C4-6/LAB&OV * Start: 04-21-2025 End: 04-21-2025 ambulatory Hematology/Oncology Comment on above: (SO)CBC/CMP(S)(PORT)* OV/LAB EARLY(PORT)/C HEMO 04/22* ABRAMOVICH (SO)CBC(PORT)D15 GEM BROOKS ABRAXAZANE* (SO)CBC(PORT)D8 GEMZ AR ABRAXANE* Start: 04-20-2025 End: 04-20-2025 Patient encounter procedure 04/20/2025 8:00 AM EDT Appointment [address] [address] Rico Diaz MD [address] [facility] [place], [place] [phone] Pt on Eliquis and aware to stop 3 days prior, not on any diabetic meds that need stopped [facility] Comment on above: Pt on Eliquis and aware to stop 3 days p rior, not on any diabetic meds that need stopped Start: 04-19-2025 Hemoglobin A1c measurement HbA1C [facility] Start: 04-19-2025 End: 04-19-2025 Patient encounter procedure 04/19/2025 1:30 PM EDT Office Visit Radiation Oncology [address] [place], [place] [phone] Lamar Stoner MD [address] [place] [phone] PANCREATIC ADENOCARCINOMA CONSULT* Radiation Oncology Comment on above: PANCREATIC ADENOCARCINOMA CONSULT* Start: 04-19-2025 End: 04-19-2025 ambulatory 04/19/2025 9:20 AM EDT PAT Pre Surgical Testing [address] [place] [address] ERCP IN ENDO Pre Surgical Testing Comment on above: ERCP IN ENDO Start: 04-14-2025 End: 04-14-2025 ambulatory Hematology/Oncology Comment on above: (SO)CBC(PORT)D8 GEMZAR ABRAXANE* QMO GEMZAR ABRAXANE( PORT)/C3-6/LAB&OV 04/12* Start: 04-12-2025 End: 04-12-2025 ambulatory Hematology/Oncology Comment on above: (SO)CBC/CMP(S)(PORT)* OV/LAB EARLY(PORT)/C HEMO 04/14* ABRAMALEXANDRA Start: 04-07-2025 End: 04-07-2025 ambulatory [facility] Comment on above: CBC* D15 GEMZAR ABRAXAZAN E/LAB EARLY* (SO)CBC* (SO)CBC(PORT)D15 GEM BROOKS ABRAXAZANE* QMO GEMZAR ABRAXANE( PORT)/C3-6/LAB&OV 04/05* Start: 04-06-2025 End: 04-06-2025 Patient encounter procedure 04/06/2025 1:45 PM EDT Office Visit [facility] SURGERY [facility]PARTMENT [address] [place] [address] 3[address] [place] [phone] Ayaz Bazzi MD [address] [place] [phone] Patient wants to discuss options other than chemo [facility] Comment on above: Patient wants to discuss options other t santos chemo Start: 04-05-2025 End: 04-05-2025 ambulatory Hematology/Oncology Comment on above: (SO)CBC/CMP(S)(PORT)OV TODAY* OV/LAB EARLY(PORT)/C HEMO * PARAMJIT Start: 03-31-2025 End: 03-31-2025 ambulatory [facility] Comment on above: CBC* D8 GEMZAR ABRAXANE/L AB EARLY* (SO)CBC* (SO)CBC(PORT)D8 GEMZ AR ABRAXANE* Start: 03-30-2025 End: 03-30-2025 Patient encounter procedure 03/30/2025 2:00 PM EDT Office Visit [facility] [address] [place], [place] [phone] Henok Martinez MD [address] [place], [place] [phone] 6 week follow up [facility] Comment on above: 6 week follow up Start: 03-30-2025 End: 03-30-2025 ambulatory 03/30/2025 10:00 AM EDT [facility] Hematology/Oncology [address] [place] [address] (SO)CBC(PORT)D15 GEMZAR ABRAXAZANE* Hematology/Oncology Comment on above: (SO)CBC(PORT)D15 GEMZAR ABRAXAZANE* Start: 03-25-2025 End: 03-25-2025 ambulatory Hematology/Oncology Comment on above: QMO GEMZAR ABRAXANE/C3-6/LAB&OV 03/23* QMO GEMZAR ABRAXANE( PORT)/C3-6/LAB&OV 03/23* (SO)CBC(PORT)D15 GEM BROOKS ABRAXAZANE* Start: 03-23-2025 End: 03-23-2025 ambulatory [facility] Comment on above: CBC/CMP* [...] procedure 03/12/2025 2:40 PM EDT Office Visit [facility] [address] [place], [place] [address] Henok Martinez MD [address] [place], [place] [address] 6 wk follow up [facility] [place] Comment on above: 6 wk follow up Start: 03-11-2025 End: 03-11-2025 ambulatory 03/11/2025 1:00 PM EDT [facility] [address] [place] [address] [facility] [address] [place] [address] Pancreatic cancer [facility] Comment on above: Pancreatic cancer Start: 03-10-2025 End: 03-26-2026 XR Chest PA and Lateral XR CHEST 2V FRONTAL/LAT Radiology Routine RSV (respiratory syncytial virus pneumonia) Expected: 03/10/2025, Expires: 03/26/2026 [facility] Work Phone: Comment on above: Expected: 03/10/2025, Expires: Start: 03-10-2025 End: 03-10-2025 ambulatory 03/10/2025 10:30 AM EDT [facility] Hematology/Oncology [address] [place] [address] QMO GEMZAR ABRAXANE(PORT)/C2-6/LAB &OV 5/13* Hematology/Oncology Comment on above: QMO GEMZAR ABRAXANE(PORT)/C2-6/LAB&OV 13* Start: 03-10-2025 End: 03-10-20[facility] on above: CBC* CBC/ GEMZAR ABRAXAZA NE/D15* D15 GEMZAR ABRAXAZAN E/LAB EARLY* (SO)CBC* (SO)CBC(PORT)D15 GEM BROOKS ABRAXAZANE* Start: 03-09-2025 End: 03-09-2025 ambulatory Hematology/Oncology Comment on above: (SO)CBC/CMP(S)(PORT)* OV/LAB EARLY(PORT)/C HEMO 03/10* ABRAMOVICH Start: 03-05-2025 End: 03-05-2025 Patient encounter procedure 03/05/2025 10:30 AM EDT Office Visit [facility] [address] [place] [address] Anisa Gutierrez, MS [address] [place], [place] [phone] Pancreatic cancer [facility] Comment on above: Pancreatic cancer Start: 03-04-2025 End: 03-04-2025 Admission to same day surgery center 03/04/2025 12:00 PM EDT - 03/04/2025 1:30 PM EDT Surgery [facility] Radiology [address] [place] [address] Yasmin Lawrence MD, [address] [place] [address] INSERTION PORT VENOUS ACCESS ADULT [facility] Radiology Comment on above: INSERTION PORT VENOUS ACCESS ADULT Start: 03-04-2025 End: 03-04-2025 Insj tunneled ctr vad w/subq port age 5 yr/> INSERTION PORT VENOUS ACCESS ADULT 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) 03/04/2025 12:00 PM EDT [facility] IR Start: 03-04-2025 Subsequent hospital visit by physician 03/04/2025 12:00 PM EDT Hospital Encounter [facility] Radiology [address] [place] [address] Yasmin Lawrence MD, [address] [place] [address] 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) [C25.0] [facility] Radiology Comment on above: Malignant neoplasm of head of pancreas ( HCC) [C25.0] Start: 03-03-2025 End: 03-03-2025 ambulatory [facility] Wise COUNTS INCLUDE 234 BEDS AT THE [facility] Laboratory Comment on above: CBC* CBC/GEMZAR ABRAXANE/ D8* D8 GEMZAR ABRAXANE/L AB EARLY* (SO)CBC* (SO)CBC(PORT)D8 GEMZ AR ABRAXANE* Start: 02-24-2025 End: 02-24-2025 Patient encounter procedure 02/24/2025 11:40 AM EDT Office [place] [address] Jorge Becker MD [address] [place], [place] [phone] continued cough follow up (PT WAS ADMITTED TO [facility] 02/10-02/14/25 DX:PNEUMONIA, RSV) - patient insisting on seeing MD, 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 [facility] [place] Comment on above: continued cough follow up (PT WAS ADMITT ED TO [facility] 02/10-02/14/25 DX:PNEUMONIA, RSV) - patient insisting on seeing MD, 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 Start: 02-24-2025 End: 02-24-2025 ambulatory Hematology/Oncology Comment on above: QMO GEMZAR ABRAXANE/D1/C2/6-LAB&OV 02/23* QMO GEMZAR ABRAXANE/ C2-6/LAB&OV 02/23* QMO GEMZAR ABRAXANE( PORT)/C2-6/LAB&OV 02/22* Start: 02-23-2025 End: 02-23-2025 ambulatory [facility] Comment on above: CBC/CMP* CBC/CMP/OV/CHEMO 01/28 0* OV/LAB EARLY/CHEMO * PARAMJIT Start: 02-22-2025 End: 02-22-2025 ambulatory [facility] Comment on above: (SO)CBC/CMP(S)* OV/LAB EARLY/CHEMO * PARAMJIT (SO)CBC/CMP(S)(PORT) * OV/LAB EARLY(PORT)/C HEMO 02/24* PARAMJIT Start: 02-19-2025 End: 02-19-2025 Patient encounter procedure 02/19/2025 1:00 PM EDT Office Visit Endocrinology [address] [place], [place] [phone] Rosaura Sanchez MD [address] [place], [place] [address] Type 2 diabetes mellitus without complication, without long-term current use of ... Endocrinology Comment on above: Type 2 diabetes mellitus without complic ation, without long-term current use of ... Start: 02-18-2025 End: 02-18-2025 Admission to same day surgery center 02/18/2025 10:30 AM EDT - 02/18/2025 12:00 PM EDT Surgery [facility] Radiology [address] [place] [address] [place], [address] [facility] [place] [address] INSERTION PORT VENOUS ACCESS ADULT [facility] Radiology Comment on above: INSERTION PORT VENOUS ACCESS ADULT Start: 02-18-2025 End: 02-18-2025 Insj tunneled ctr vad w/subq port age 5 yr/> INSERTION PORT VENOUS ACCESS ADULT 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) 02/18/2025 10:30 AM EDT ME IR Start: 02-18-2025 Subsequent hospital visit by physician [facility] Comment on above: Malignant neoplasm of head of pancreas ( HCC) [C25.0] Start: 02-16-2025 End: 02-16-2025 Patient encounter procedure 02/16/2025 12:00 PM EDT Office Visit [facility] [address] [place] [address] PodlogCinthia salcido APRN.CRATE BUILDER [address] [place] [address] Hospital follow up D/C [facility] 02.14.2025 Admitted for: Acute Pneumonia [facility] Comment on above: Hospital follow up D/C [facility] Admitted for: Acute Pneumonia Start: 02-12-2025 End: 02-12-2025 ambulatory [facility] Comment on above: CBC* CBC/QMO GEMZAR ABRAX ANE/D15* D15 GEMZAR ABRAXANE/ LAB EARLY* (SO)CBC* (SO)CBC(PORT) D15 GE MZAR ABRAXANE* (SO)CBC Start: 02-11-2025 End: 02-11-2025 Patient encounter procedure 02/11/2025 12:40 PM EDT Office Visit [facility] [place] [address] [place] [address] Virginia Garcia APRN.CRATE BUILDER [address] [place] [address] . [facility] Comment on above: . Start: 02-08-2025 End: 05-10-2025 PT panel - Platelet poor plasma by Coagulation assay PROTHROMBIN TIME Lab Routine 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) Expected: 02/08/2025, Expires: 05/10/2025 [facility] Work Phone: Comment on above: Expected: 02/08/2025, Expires: Start: 02-08-2025 End: 02-08-2025 Admission to same day surgery center 02/08/2025 12:00 PM EDT - 02/08/2025 1:30 PM EDT Surgery [facility] Radiology [address] [place] [address] [place] [address] [facility] [address] [place] [phone] INSERTION PORT VENOUS ACCESS ADULT [facility] Comment on above: INSERTION PORT VENOUS ACCESS ADULT Start: 02-08-2025 End: 02-08-2025 Insj tunneled ctr vad w/subq port age 5 yr/> INSERTION PORT VENOUS ACCESS ADULT 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) 02/08/2025 12:00 PM EDT ME IR Start: 02-08-2025 Subsequent hospital visit by physician 02/08/2025 12:00 PM EDT Hospital Encounter [facility] Radiology [address] [place] [address] [place], [address] [facility] [place] [address] 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) [C25.0] [facility] Comment on above: Malignant neoplasm of head of pancreas ( HCC) [C25.0] Start: 02-05-2025 End: 02-05-2025 ambulatory [facility] Comment on above: CBC* CBC/QMO GEMZAR ABRAX AZANE/D8* D8 GEMZAR ABRAXAZANE /LAB EARLY* (SO)CBC* Start: 02-04-2025 End: 02-04-2025 Patient encounter procedure 02/04/2025 11:00 AM EDT Office Visit [facility] SUR[facility]ERY [facility] [address] [facility] 3[address] [place] [address] Ayaz Bazzi MD [address] [place] [address] [facility] SURGERY DEPARTMENT Comment on above: [facility] Start: 02-03-2025 Hemoglobin A1c measurement HbA1C [facility] Start: 02-03-2025 End: 02-03-2025 Patient encounter procedure 02/03/2025 7:15 AM EDT Office Visit Endocrinology [address] [place], [place] [phone] Margaret Macdonald, WEIGHER AND CHARGER.CRATE BUILDER [address] [place] [address] Type 2 diabetes mellitus with hyperglycemia, with long-term current use of insul... Endocrinology Comment on above: Type 2 diabetes mellitus with hyperglyce keiry, with long-term current use of insul... Start: 02-01-2025 End: 02-01-2025 Patient encounter procedure 02/01/2025 11:00 AM EDT Office Visit [facility] [address] [place] [address] Henok Martinez MD [address] [place] [address] Hospital discharge follow up [facility] Comment on above: Hospital discharge follow up Start: 01-28-2025 End: 01-28-2025 ambulatory [facility] Comment on above: CBC* CBC/START QMO GEMZAR ABRAXANE/D1/C1/6* (SO)CBC* (SO)CBC/START QMO GE MZAR ABRAXANE/D1/C1/6* Start: 01-27-2025 End: 01-27-2025 ambulatory 01/27/2025 10:30 AM EDT [facility] Hematology/Oncology [address] [place] [address] Wstr, Sales Merchandising Specialist [facility] [address] [place] [address] CHEMO ED Hematology/Oncology Comment on above: CHEMO ED Start: 01-25-2025 End: 01-25-2025 ambulatory 01/25/2025 8:30 AM EDT Visit (SP) Office Hematology/Oncology [address] [place] [address] Juan Miguel Yusuf MD [address] [place] [address] FOUNDER PRESIDENT AND CEO/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) [C25.0]/IST AVAILABLE OK PER NURSE/ REF BY ASHUTOSH FREEMAN* Hematology/Oncology Comment on above: FOUNDER PRESIDENT AND CEO/Malignant neoplasm of head of pancrea s (HCC) [C25.0]/IST AVAILABLE OK PER NURSE/ REF BY ASHUTOSH FREEMAN* Start: 01-21-2025 End: 01-21-2025 Patient encounter procedure 01/21/2025 10:15 AM EDT Office Visit [facility] Ophthalmology [address] [place] [address] Emma Mcnally, OD [address] [place] [address] diabetic eye exam- has been squinting Ophthalmology Comment on above: diabetic eye exam- has been squinting Start: 01-14-2025 Patient discharge [facility] Start: 01-14-2025 [facility] Start: 01-12-2025 End: 01-12-2025 Patient encounter procedure 01/12/2025 2:00 PM EDT Office Visit [facility] [place] [address] [place] [address] Henok Martinez MD [address] [place] [address] 4 week follow up Family [facility]gie [place] Comment on above: 4 week follow up Start: 01-11-2025 Speech therapy assessment [facility] Start: 01-11-2025 [facility] Start: 01-10-2025 Speech therapy assessment [facility] Start: 01-10-2025 Care planning and problem solving actions [facility] Start: 01-10-2025 End: 01-10-2025 [facility] Start: 01-10-2025 Care regimes management [facility] Start: 01-10-2025 Notification of physician [facility] Start: 01-10-2025 Referral to gastroenterology service [facility] Start: 01-10-2025 Application of intermittent pneumatic compression device [facility] Start: 01-10-2025 Assessment of risk of venous thromboembolism [facility] Start: 01-10-2025 Insertion of catheter into peripheral vein [facility] Start: 01-10-2025 Measuring intake and output [facility] Start: 01-10-2025 Providing care according to standard [facility] Start: 01-10-2025 Provision of activity privileges [facility] Start: 01-10-2025 Referral to occupational therapist [facility] Start: 01-10-2025 Referral to service [facility] Start: 01-10-2025 Following clinical pathway protocol [facility] Start: 01-10-2025 Verification routine [facility] Start: 01-10-2025 Admission procedure [facility] Start: 01-10-2025 Hospital admission, emergency, from emergency room, medical nature [facility] Start: 01-10-2025 Cancer antigen 19-9 measurement [facility] Start: 01-10-2025 Patient referral to dietitian [facility] Start: 12-25-2024 End: 12-25-2024 Patient encounter procedure 12/25/2024 3:00 PM EST Office Visit Family Virgie Mendoza [address] [place] [address] Henok Martinez MD [address] [place] [address] 4 week follow up Family Virgie Mendoza Comment on above: 4 week follow up Start: 12-16-2024 RSV Vaccine (1 - 1-dose 60+ series) RSV Vaccine (1 - 1-dose 60+ series) [facility] Comment on above: Postponed from 2000 (Declined at t his time) Start: 12-16-2024 RSV Vaccine (1 - 1-dose 75+ series) RSV Vaccine (1 - 1-dose 75+ series) [facility] Comment on above: Postponed from 2015 (Declined at t his time) Start: 12-07-2024 End: 12-07-2024 Patient encounter procedure 12/07/2024 2:45 PM EST Office Visit Pulmonary Medicine [address] [place], [place] [id number] Nancy Medley MD [address] [place], [place] [id number] 6 month follow up Pulmonary Medicine Comment on above: 6 month follow up Start: 12-02-2024 End: 12-02-2024 Patient encounter procedure 12/02/2024 2:00 PM EST Office Visit Endocrinology [address] [place] [phone] Margaret Macdonald, WEIGHER AND CHARGER.CRATE BUILDER [address] [place] [address] Type 2 diabetes mellitus without complication, without [...] 2:30 PM EST Appointment Radiology [address] [place] [id number] Epigastric pain [R10.13]; Elevated lipase [R74.8] Radiology Comment on above: Epigastric pain [R10.13]; Elevated lipas e [R74.8] Start: 11-09-2024 End: 11-09-2024 Patient encounter procedure Radiology Comment on above: Oropharyngeal dysphagia [R13.12] Start: 11-06-2024 End: 02-05-2025 Lipase [Enzymatic activity/volume] in Serum or Plasma LIPASE Lab Routine Epigastric pain Elevated lipase Expected: 11/06/2024, Expires: 02/05/2025 [facility] Work Phone: Comment on above: Expected: 11/06/2024, Expires: Start: 11-04-2024 End: 11-04-2024 Patient encounter procedure 11/04/2024 3:40 PM EST Office Visit Family Virgie Mendoza [address] [place] [id number] Henok Martinez MD [address] [place] [id number] 6 month follow up Family [facility]gie [facility] Comment on above: 6 month follow up Start: 11-04-2024 End: 02-03-2025 CBC W Auto Differential panel - Blood COMPLETE BLOOD COUNT AND DIFFERENTIAL Lab Routine Primary hypertension Expected: 11/04/2024, Expires: 02/03/2025 [facility] Comment on above: Expected: 11/04/2024, Expires: Start: 11-04-2024 End: 02-03-2025 Comprehensive metabolic 2000 panel - Serum or Plasma COMPREHENSIVE METABOLIC PANEL Lab Routine Primary hypertension Expected: 11/04/2024, Expires: 02/03/2025 [facility] Comment on above: Expected: 11/04/2024, Expires: Start: 11-04-2024 End: 02-03-2025 Hemoglobin A1c in Blood HEMOGLOBIN A1C Lab Routine Type 2 diabetes mellitus without complication, without long-term current use of insulin (HCC) Expected: 11/04/2024, Expires: 02/03/2025 [facility] Work Phone: Comment on above: Expected: 11/04/2024, Expires: Start: 11-04-2024 End: 02-03-2025 Lipase [Enzymatic activity/volume] in Serum or Plasma LIPASE Lab Routine Epigastric pain Expected: 11/04/2024, Expires: 02/03/2025 [facility] Comment on above: Expected: 11/04/2024, Expires: Start: 11-04-2024 End: 02-03-2025 Lipid 1996 panel - Serum or Plasma LIPID PANEL BASIC Lab Routine Type 2 diabetes mellitus without complication, without long-term current use of insulin (HCC) Expected: 11/04/2024, Expires: 02/03/2025 [facility] Comment on above: Expected: 11/04/2024, Expires: Start: 11-04-2024 End: 02-03-2025 Microalbumin/Creatinine [Mass Ratio] in Urine ALBUMIN/CREATININE RATIO, URINE Lab Routine Type 2 diabetes mellitus without complication, without long-term current use of insulin (HCC) Expected: 11/04/2024, Expires: 02/03/2025 [facility] Comment on above: Expected: 11/04/2024, Expires: Start: 10-14-2024 End: 11-12-2025 RF videography Hypopharynx and Esophagus Views W liquid and paste contrast PO during swallowing XR MODIFIED BARIUM SWALLOW W SPEECH THERAPY Radiology Routine Oropharyngeal dysphagia Expected: 10/14/2024, Expires: 11/12/2025 [facility] Work Phone: Comment on above: Expected: 10/14/2024, Expires: Start: 09-17-2024 Hepatitis B screening Urine Albumin:Creatinine Ratio [facility] Start: 09-17-2024 Hepatitis B surface antibody level LDL Cholesterol [facility] Start: 09-05-2024 Covid-19 Vaccine () Covid-19 Vaccine () [facility] Comment on above: Postponed from 06/28/2023 (Declined at t his time) Start: 09-05-2024 Hepatitis B Vaccine (1 of 3 - Risk 3-dose series) Hepatitis B Vaccine (1 of 3 - Risk 3-dose series) [facility] Comment on above: Postponed from 2000 (Declined at t his time) Start: 08-01-2024 Hemoglobin A1c measurement HbA1C [facility] Start: 06-28-2024 Influenza vaccination [facility] Start: 06-10-2024 End: 06-10-2024 Patient encounter procedure 06/10/2024 2:00 PM EDT Office Visit Endocrinology [address] [place] [address] Margaret Macdonald APRN.CRATE BUILDER [address] [place] [address] Type 2 diabetes mellitus without complication, without long-term current use of insulin (HCC) [E11.9] Endocrinology Comment on above: Type 2 diabetes mellitus without complic ation, without long-term current use of insulin (HCC) [E11.9] Start: 06-06-2024 End: 06-06-2024 Patient encounter procedure 06/06/2024 8:00 AM EDT Appointment Radiology [address] [place] [address] X-ray Radiology Comment on above: X-ray Start: 06-05-2024 End: 06-05-2024 Patient encounter procedure 06/05/2024 11:45 AM EDT Office Visit Pulmonary Medicine [address] [place] [address] Nancy Medley MD [address] [address] 6 month follow up Pulmonary Medicine Comment on above: 6 month follow up Start: 06-04-2024 Hemoglobin A1c measurement HbA1C [facility] Start: 05-20-2024 3 comp foot exam completed DIABETIC FOOT EXAM [facility] Start: 05-20-2024 COVID-19 VACCINE (3 - Pfizer series) COVID-19 VACCINE (3 - Pfizer series) [facility] Comment on above: Postponed from 04/26/2021 (Declined at t his time) Start: 05-20-2024 Diabetic foot examination Diabetic Foot Exam [facility] Start: 05-20-2024 SHINGRIX VACCINE (1 of 2) SHINGRIX VACCINE (1 of 2) [facility] Comment on above: Postponed from 1990 (Declined at t his time) Start: 05-20-2024 Urine microalbumin profile [facility] Comment on above: Postponed from 1959 (Declined at t his time) Start: 05-04-2024 End: 05-04-2025 CBC W Auto Differential panel - Blood COMPLETE BLOOD COUNT AND DIFFERENTIAL Lab Routine Anemia, unspecified type Expected: 05/04/2024, Expires: 05/04/2025 [facility] Work Phone: Comment on above: Expected: 05/04/2024, Expires: Start: 05-04-2024 End: 05-04-2025 Cobalamin (Vitamin B12) [Mass/volume] in Serum or Plasma VITAMIN B12 Lab Routine Anemia, unspecified type Expected: 05/04/2024, Expires: 05/04/2025 [facility] Comment on above: Expected: 05/04/2024, Expires: Start: 05-04-2024 End: 05-04-2025 Ferritin [Mass/volume] in Serum or Plasma FERRITIN Lab Routine Anemia, unspecified type Expected: 05/04/2024, Expires: 05/04/2025 [facility] Comment on above: Expected: 05/04/2024, Expires: Start: 05-04-2024 End: 05-04-2025 Folate [Mass/volume] in Serum or Plasma FOLATE, SERUM Lab Routine Anemia, unspecified type Expected: 05/04/2024, Expires: 05/04/2025 [facility] Comment on above: Expected: 05/04/2024, Expires: Start: 05-04-2024 End: 05-04-2025 Hemoglobin.gastrointestin al.lower [Presence] in Stool by Immunoassay IMMUNOCHEMICAL FECAL OCCULT BLOOD TEST Lab Routine Anemia, unspecified type Expected: 05/04/2024, Expires: 05/04/2025 [facility] Comment on above: Expected: 05/04/2024, Expires: Start: 05-04-2024 End: 05-04-2025 Iron and Iron binding capacity panel - Serum or Plasma IRON AND TIBC Lab Routine Anemia, unspecified type Expected: 05/04/2024, Expires: 05/04/2025 [facility] Comment on above: Expected: 05/04/2024, Expires: 5 Start: 05-01-2024 End: 05-01-2024 Patient encounter procedure 05/01/2024 4:00 PM EDT Office Visit [facility] [place] [address] [place], [place] [phone] Henok Martinez MD [address] [place] [address] 4-6 week follow up [facility] [place] Comment on above: 4-6 week follow up Start: 05-01-2024 End: 07-31-2024 Hemoglobin A1c in Blood [facility] Work Phone: Comment on above: Expected: 05/01/2024, Expires: 4 Start: 04-28-2024 End: 04-28-2024 Patient encounter procedure 04/28/2024 1:00 PM EDT Office Visit [facility] Ophthalmology [address] [place] [address] Emma Mcnally, OD [address] [place] [address] 10 month follow up-April or May Ophthalmology Comment on above: 10 month follow up-April or May Start: 04-26-2024 Influenza vaccination Influenza Vaccine (#1) [place] [facility] Comment on above: Postponed from 06/28/2023 (Declined at t his time) Start: 04-09-2024 Glaucoma screening Dilated Retinal Exam [facility] Start: 04-09-2024 Hepatitis C antibody, confirmatory test DILATED RETINAL EXAM [facility] Start: 04-06-2024 End: 04-05-2025 XR Chest PA and Lateral XR CHEST 2V FRONTAL/LAT Radiology Routine Abnormal x-ray Expected: 04/06/2024, Expires: 04/05/2025 [facility] Work Phone: Comment on above: Expected: 04/06/2024, Expires: 5 Start: 03-15-2024 End: 06-14-2024 Basic metabolic 2000 panel - Serum or Plasma BASIC METABOLIC PNL Lab Routine Primary hypertension Expected: 03/15/2024, Expires: 06/14/2024 [facility] Work Phone: Comment on above: Expected: 03/15/2024, Expires: 4 Start: 03-15-2024 End: 06-14-2024 CBC W Auto Differential panel - Blood CBC + DIFF Lab Routine Atrial fibrillation, unspecified type (HCC) Expected: 03/15/2024, Expires: 06/14/2024 [facility] Work Phone: Comment on above: Expected: 03/15/2024, Expires: Start: 03-15-2024 End: 06-14-2024 Hemoglobin A1c in Blood HGB A1C Lab Routine Type 2 diabetes mellitus without complication, without long-term current use of insulin (HCC) Expected: 03/15/2024, Expires: 06/14/2024 [facility] Work Phone: Comment on above: Expected: 03/15/2024, Expires: Start: 03-12-2024 Hemoglobin A1c measurement HbA1C [facility] Start: 03-06-2024 End: 03-06-2024 Patient encounter procedure 03/06/2024 2:00 PM EDT Office Visit [facility] [place] [address] [facility] [place] [id number] Henok Martinez MD [address] [facility] [place] [address] 3 month f/u [facility] [place] Comment on above: 3 month f/u Start: 03-05-2024 End: 06-04-2024 Basic metabolic 2000 panel - Serum or Plasma BASIC METABOLIC PANEL Lab Routine Hyperkalemia Expected: 03/05/2024, Expires: 06/04/2024 [facility] Work Phone: Comment on above: Expected: 03/05/2024, Expires: Start: 03-05-2024 End: 06-04-2024 CBC W Auto Differential panel - Blood COMPLETE BLOOD COUNT AND DIFFERENTIAL Lab Routine Leukocytosis, unspecified type Expected: 03/05/2024, Expires: 06/04/2024 [facility] Comment on above: Expected: 03/05/2024, Expires: Start: 03-04-2024 End: 03-04-2024 Patient encounter procedure 03/04/2024 2:20 PM EDT Office Visit [facility] [place] [address] [place], [place] [address] Henok Martinez MD [address] [place] [address] [facility] 02-[facility]-2024 discharge [facility] [place] Comment on above: [facility] 02-27-2024 discharge Start: 03-04-2024 End: 06-03-2024 Comprehensive metabolic 2000 panel - Serum or Plasma [facility] Comment on above: Expected: 03/04/2024, Expires: Start: 03-04-2024 End: 06-03-2024 Thyrotropin [Units/volume] in Serum or Plasma [facility] Comment on above: Expected: 03/04/2024, Expires: Start: 02-16-2024 Hepatitis C antibody, confirmatory test DILATED RETINAL EXAM [facility] Start: 01-11-2024 Hepatitis B surface antibody level LDL CHOLESTEROL [facility] Start: 12-19-2023 End: 03-19-2024 Basic metabolic 2000 panel - Serum or Plasma BASIC METABOLIC PNL Lab Routine Type 2 diabetes mellitus without complication, without long-term current use of insulin (HCC) Expected: 12/19/2023, Expires: 03/19/2024 [facility] Work Phone: Comment on above: Expected: 12/19/2023, Expires: Start: 12-19-2023 End: 03-19-2024 Hemoglobin A1c in Blood HGB A1C Lab Routine Type 2 diabetes mellitus without complication, without long-term current use of insulin (HCC) Expected: 12/19/2023, Expires: 03/19/2024 [facility] Work Phone: Comment on above: Expected: 12/19/2023, Expires: Start: 12-18-2023 Hemoglobin A1c/Hemoglobin.total in Blood HbA1C [facility] Start: 10-28-2023 Behavioral Health Screening Behavioral Health Screening [facility] Start: 09-05-2023 End: 12-05-2023 ALBUMIN/CREAT RATIO RND UR ALBUMIN/CREAT RATIO RND UR Lab Routine Type 2 diabetes mellitus without complication, without long-term current use of insulin (HCC) Expected: 09/05/2023, Expires: 12/05/2023 [facility] Work Phone: Comment on above: Expected: 09/05/2023, Expires: Start: 09-05-2023 End: 12-05-2023 CBC W Auto Differential panel - Blood CBC + DIFF Lab Routine 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 Type 2 diabetes mellitus without complication, without long-term current use of insulin (HCC) Expected: 09/05/2023, Expires: 12/05/2023 [facility] Work Phone: Comment on above: Expected: 09/05/2023, Expires: Start: 09-05-2023 End: 12-05-2023 Comprehensive metabolic 2000 panel - Serum or Plasma COMP METABOLIC PANEL Lab Routine Primary hypertension Type 2 diabetes mellitus without complication, without long-term current use of insulin (HCC) Expected: 09/05/2023, Expires: 12/05/2023 [facility] Work Phone: Comment on above: Expected: 09/05/2023, Expires: 4 Start: 09-05-2023 End: 12-05-2023 Hemoglobin A1c in Blood HGB A1C Lab Routine Type 2 diabetes mellitus without complication, without long-term current use of insulin (HCC) Expected: 09/05/2023, Expires: 12/05/2023 [facility] Work Phone: Comment on above: Expected: 09/05/2023, Expires: Start: 09-05-2023 End: 12-05-2023 Lipid 1996 panel - Serum or Plasma LIPID PANEL BASIC Lab Routine Type 2 diabetes mellitus without complication, without long-term current use of insulin (HCC) Expected: 09/05/2023, Expires: 12/05/2023 [facility] Work Phone: Comment on above: Expected: 09/05/2023, Expires: 4 Start: 08-31-2023 Hepatitis B screening URINE ALBUMIN:CREATININE RATIO [facility] Start: 08-31-2023 Hepatitis B surface antibody level LDL CHOLESTEROL [facility] Start: 07-10-2023 Hemoglobin A1c/Hemoglobin.total in Blood HBA1C [facility] Start: 06-28-2023 Covid-19 Vaccine () Covid-19 Vaccine () [facility] Start: 06-28-2023 Influenza vaccination [facility] Start: 04-26-2023 End: 06-26-2023 Hemoglobin A1c in Blood HGB A1C Lab Routine Type 2 diabetes mellitus without complication, without long-term current use of insulin (HCC) Expected: 04/26/2023, Expires: 06/26/2023 [facility] Work Phone: Comment on above: Expected: 04/26/2023, Expires: 3 Start: 04-26-2023 Influenza vaccination INFLUENZA (#1) [facility] Comment on above: Postponed from 06/28/2022 (Declined at t his time) Start: 04-12-2023 Hemoglobin A1c/Hemoglobin.total in Blood HBA1C [facility] Start: 04-01-2023 End: 06-01-2023 Basic metabolic 2000 panel - Serum or Plasma BASIC METABOLIC PNL Lab Routine Primary hypertension Expected: 04/01/2023, Expires: 06/01/2023 [facility] Work Phone: Comment on above: Expected: 04/01/2023, Expires: 3 Start: 04-01-2023 End: 06-01-2023 Hemoglobin A1c in Blood HGB A1C Lab Routine Type 2 diabetes mellitus without complication, without long-term current use of insulin (HCC) Expected: 04/01/2023, Expires: 06/01/2023 [facility] Work Phone: Comment on above: Expected: 04/01/2023, Expires: 3 Start: 03-31-2023 [facility] Start: 03-30-2023 [facility] Start: 02-28-2023 Hemoglobin A1c/Hemoglobin.total in Blood HBA1C [facility] Start: 12-02-2022 End: 02-01-2023 Comprehensive metabolic 2000 panel - Serum or Plasma COMP METABOLIC PANEL Lab Routine Type 2 diabetes mellitus without complication, without long-term current use of insulin (HCC) Expected: 12/02/2022, Expires: 02/01/2023 [facility] Work Phone: Comment on above: Expected: 12/02/2022, Expires: 3 Start: 12-02-2022 End: 02-01-2023 Hemoglobin A1c in Blood HGB A1C Lab Routine Type 2 diabetes mellitus without complication, without long-term current use of insulin (HCC) Expected: 12/02/2022, Expires: 02/01/2023 [facility] Work Phone: Comment on above: Expected: 12/02/2022, Expires: 3 Start: 12-02-2022 End: 02-01-2023 Lipid 1996 panel - Serum or Plasma LIPID PANEL BASIC Lab Routine Type 2 diabetes mellitus without complication, without long-term current use of insulin (HCC) Expected: 12/02/2022, Expires: 02/01/2023 [facility] Work Phone: Comment on above: Expected: 12/02/2022, Expires: 3 Start: 10-28-2022 ADVANCE DIRECTIVE DISCUSSION ADVANCE DIRECTIVE DISCUSSION [facility] Start: 10-28-2022 DEPRESSION ASSESSMENT DEPRESSION ASSESSMENT [facility] Start: 09-25-2022 Hepatitis B screening URINE ALBUMIN:CREATININE RATIO [facility] Start: 09-25-2022 Hepatitis B surface antibody level LDL CHOLESTEROL [facility] Start: 06-28-2022 Influenza vaccination [facility] Start: 04-30-2022 End: 06-30-2022 Hemoglobin A1c/Hemoglobin.total in Blood HGB A1C Lab Routine Type 2 diabetes mellitus without complication, without long-term current use of insulin (HCC) Expected: 04/30/2022, Expires: 06/30/2022 [facility] Work Phone: Comment on above: Expected: 04/30/2022, Expires: 2 Start: 04-27-2022 Hemoglobin A1c/Hemoglobin.total in Blood HBA1C [facility] Start: 01-26-2022 End: 03-28-2022 Hemoglobin A1c/Hemoglobin.total in Blood [facility] Work Phone: Comment on above: Expected: 01/26/2022, Expires: 2 Start: 12-25-2021 Hemoglobin A1c/Hemoglobin.total in Blood HBA1C [facility] Start: 10-28-2021 ADVANCE DIRECTIVE DISCUSSION ADVANCE DIRECTIVE DISCUSSION [facility] Start: 10-28-2021 DEPRESSION ASSESSMENT DEPRESSION ASSESSMENT [facility] Start: 08-01-2021 COVID-19 VACCINE (3 - Booster for Pfizer series) COVID-19 VACCINE (3 - Booster for Pfizer series) [facility] Start: 04-26-2021 COVID-19 VACCINE (3 - Booster for Pfizer series) COVID-19 VACCINE (3 - Booster for Pfizer series) [facility] Start: 2015 RSV Vaccine (1 - 1-dose 75+ series) RSV Vaccine (1 - 1-dose 75+ series) [facility] Start: 2005 BONE DENSITY BONE DENSITY [facility] Start: 2005 PNEUMOVAX AGE 65 AND OVER WITH 5YR LOOKBACK (#1) PNEUMOVAX AGE 65 AND OVER WITH 5YR LOOKBACK (#1) [facility] Start: 05-28-2005 Medicare Annual Wellness Visit Medicare Annual Wellness Visit [facility] Start: 2000 Hepatitis B Vaccine (1 of 3 - Risk 3-dose series) Hepatitis B Vaccine (1 of 3 - Risk 3-dose series) [facility] Start: 2000 RSV Vaccine (1 - 1-dose 60+ series) RSV Vaccine (1 - 1-dose 60+ series) [facility] Start: 1990 SHINGRIX VACCINE (1 of 2) SHINGRIX VACCINE (1 of 2) [facility] Start: 1959 Urine microalbumin profile [facility] Start: 1958 SPIROMETRY SPIROMETRY [facility] Start: 1951 Screening for malignant neoplasm of cervix Cervical Cancer Screening [facility] Start: 1950 3 comp foot exam completed DIABETIC FOOT EXAM [facility] Start: 1950 Hepatitis C antibody, confirmatory test DILATED RETINAL EXAM [facility] Start: 1946 PNEUMOCOCCAL: 65+ (1 - PCV) PNEUMOCOCCAL: 65+ (1 - PCV) [facility] Alanine aminotransfe rase [Enzymatic activity/volume] in Serum or Plasma [facility] Albumin [Mass/volume ] in Serum or Plasma [facility] Alkaline phosphatase [Enzymatic activity/volume] in Serum or Plasma [facility] Anion gap in Serum o r Plasma [facility] Bilirubin, total measurement [facility] BUN/Creatinine ratio [facility] Calcium [Mass/volume ] in Serum or Plasma [facility] Cancer antigen 19-9 measurement [facility] Carbon dioxide, tota l [Moles/volume] in Central venous blood [facility] Catheterization of l eft heart [facility] End: 01-25-2026 CBC W Auto Differential panel - Blood COMPLETE BLOOD COUNT AND DIFFERENTIAL Lab Routine 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) Once per week for 26 Occurrences starting 01/25/2025 until 01/25/2026, 1 completed [facility] Work Phone: Comment on above: Once per week for 26 Occurrences startin g 01/25/2025 until 01/25/2026, 1 completed End: 09-05-2023 COLONOSCOPY DIAGNOSTIC COLONOSCOPY DIAGNOSTIC Endoscopy Routine Change in bowel habits 1 Occurrences starting 09/05/2022 until 09/05/2023 [facility] Work Phone: Comment on above: 1 Occurrences starting 09/05/2022 until 09/05/2023 End: 01-25-2026 Comprehensive metabolic 2000 panel - Serum or Plasma COMPREHENSIVE METABOLIC PANEL Lab Routine 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) Once per week for 26 Occurrences starting 01/25/2025 until 01/25/2026, 1 completed [facility] Comment on above: Once per week for 26 Occurrences startin g 01/25/2025 until 01/25/2026, 1 completed Creatinine [Mass/vol ume] in Serum or Plasma [facility] End: 06-24-2026 CT Abdomen and Pelvis W contrast IV CT ABD/PEL W IVCON Radiology Routine 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) Adenocarcinoma of head of pancreas (HCC) 1 Occurrences starting 05/25/2025 until 06/24/2026 [facility] Work Phone: Comment on above: 1 Occurrences starting 05/25/2025 until 06/24/2026 CT Abdomen and Pelvi s W contrast IV CT ABD/PEL W IVCON Radiology Routine 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) Adenocarcinoma of head of pancreas (HCC) 05/26/2025 3:04 PM EDT [facility] Work Phone: End: 06-24-2026 CT Chest W contrast IV CT CHEST W IVCON Radiology Routine 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) Adenocarcinoma of head of pancreas (HCC) 1 Occurrences starting 05/25/2025 until 06/24/2026 [facility] Comment on above: 1 Occurrences starting 05/25/2025 until 06/24/2026 CT Chest W contrast IV CT CHEST W IVCON Radiology Routine 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) Adenocarcinoma of head of pancreas (HCC) 05/26/2025 3:04 PM EDT [facility] End: 03-09-2024 Ct pelvis w/contrast material CT PELVIS W IVCON Radiology Routine Pelvic and perineal pain 1 Occurrences starting 02/08/2023 until 03/09/2024 [facility] Work Phone: Comment on above: 1 Occurrences starting 02/08/2023 until 03/09/2024 End: 12-16-2023 Ct thorax w/o contrast material CT CHEST WO IVCON Radiology Routine Chronic cough Abnormal chest x-ray 1 Occurrences starting 11/16/2022 until 12/16/2023 [facility] Work Phone: Comment on above: 1 Occurrences starting 11/16/2022 until 12/16/2023 Cytology report of B nathaniel fluid Cyto stain [facility] End: 04-06-2026 ERCP ERCP Endoscopy Routine RUQ pain 1 Occurrences starting 04/06/2025 until 04/06/2026 [facility] Work Phone: Comment on above: 1 Occurrences starting 04/06/2025 until 04/06/2026 Erythrocyte mean corpuscular volume determination [facility] Glucose [Mass/volume ] in Serum or Plasma [facility] Hematocrit [Volume Fraction] of Blood [facility] Hemoglobin [Mass/vol ume] in Blood [facility] Insj tunneled ctr va d w/subq port age 5 yr/> INSERTION PORT VENOUS ACCESS ADULT 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) ME IR Leukocytes [#/volume ] in Blood [facility] End: 10-31-2023 LUNG DIFFUSION CAPACITY (DLCO) LUNG DIFFUSION CAPACITY (DLCO) PFT Routine Mild intermittent asthma without complication 1 Occurrences starting 10/01/2022 until 10/31/2023 [facility] Work Phone: Comment on above: 1 Occurrences starting 10/01/2022 until 10/31/2023 End: 10-31-2023 LUNG VOLUMES LUNG VOLUMES PFT Routine Mild intermittent asthma without complication 1 Occurrences starting 10/01/2022 until 10/31/2023 [facility] Work Phone: Comment on above: 1 Occurrences starting 10/01/2022 until 10/31/2023 Magnesium measurement [facility] Magnesium measurement [facility] Mean corpuscular hemoglobin concentration determination [facility] Mean corpuscular hemoglobin determination [facility] Measurement of renal function [facility] Neutrophil count [facility] Neutrophil percent differential count [facility] Patient Education [facility] Work Phone: Patient referral [facility] Work Phone: Platelets [#/volume] in Blood [facility] Potassium measurement [facility] Red blood cell count [facility] Red cell distributio n width determination [facility] Serum chloride measurement [facility] Sodium measurement [facility] End: 10-31-2023 SPIROMETRY - BASELINE AND POST DILATOR SPIROMETRY - BASELINE AND POST DILATOR PFT Routine Mild intermittent asthma without complication 1 Occurrences starting 10/01/2022 until 10/31/2023 [facility] Work Phone: Comment on above: 1 Occurrences starting 10/01/2022 until 10/31/2023 Stroke after atrial fibrillation 5 year risk [#] [place] 2003 IR PORTOCATH PLACEMENT Radiology Routine 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) Ordered: 01/28/2025 [facility] Work Phone: Comment on above: Ordered: 01/28/2025 Total protein measurement [facility] Urea nitrogen [Mass/volume] in Serum or Plasma [facility] End: 12-04-2025 US Abdomen RUQ US ABD RIGHT UPPER QUADRANT Radiology Routine Epigastric pain 1 Occurrences starting 11/04/2024 until 12/04/2025 [facility] Comment on above: 1 Occurrences starting 11/04/2024 until 12/04/2025 US Abdomen RUQ US ABD RIGHT UPP ER QUADRANT Radiology Routine Epigastric pain Elevated lipase 11/12/2024 2:54 PM EST [facility] Work Phone: US [facility] End: 04-03-2025 XR Chest PA and Lateral XR CHEST 2V FRONTAL/LAT Radiology Routine Bronchitis 1 Occurrences starting 03/04/2024 until 04/03/2025 [facility] Work Phone: Comment on above: 1 Occurrences starting 03/04/2024 until 04/03/2025 XR Chest PA and Lateral XR CHEST 2V FRONTAL/LAT Radiology Routine Bronchitis 03/04/2024 3:46 PM EDT [facility] End: 12-04-2025 XR Chest PA and Lateral XR CHEST 2V FRONTAL/LAT Radiology Routine Hemoptysis 1 Occurrences starting 11/04/2024 until 12/04/2025 [facility] Comment on above: 1 Occurrences starting 11/04/2024 until 12/04/2025 End: 07-05-2025 XR Ribs - right Views and Chest PA XR RIBS/CHEST 3V AP RIB/OBLS/CXR RIGHT Radiology Routine Rib pain on right side 1 Occurrences starting 06/05/2024 until 07/05/2025 [facility] Work Phone: Comment on above: 1 Occurrences starting 06/05/2024 until 07/05/2025 [facility] Immunizations Immunization Date Immunization Notes Care Provider Fa cili 03-01-2021 COVID-19 vaccine, ag e 12+ yr (PFIZER-BIONTECH - PURPLE TOP) Henok Martinez MD Work Phone: [facility] 02-08-2021 COVID-19 vaccine, ag e 12+ yr (PFIZER-BIONTECH - PURPLE TOP) Henok Martinez MD Work Phone: [facility] Payers Date Payer Category Payer Medicare [id number] 2024 Self-pay [id number] 2023 Medicaid [id number] 2023 Self-pay [id number] 2021 Medicaid MEDICAID [facility] MEDICAID [id number] 2021-Present [phone] [address] [place] [address] Medicaid [id number] 2021 Medicaid [id number] 2005 Medicare MEDICARE MEDICAR E A AND B [id number] 2005-Present [phone] [address] [address] [place] [address] Medicare [id number] 2005 Medicare [id number] 2005 Medicare [id number] Unknown [id number] [id number] Unknown [id number] 2.16.840.1.531596.3.579.2.462 Unknown [id number] 2.16.840.1.052536.3.579.2.462 Unknown [id number] 2.16.840.1.934094.3.579.2.462 Unknown [id number] 2.16.840.1.277633.3.579.2.462 Unknown [id number] 2.16.840.1.457426.3.579.2.462 Unknown [id number] 2.16.840.1.051802.3.579.2.462 Unknown [id number] 2.16.840.1.428838.3.579.2.462 Unknown [id number] 2.16.840.1.217865.3.579.2.462 Unknown [id number] 2.16.840.1.176243.3.579.2.462 Unknown [id number] 2.16.840.1.598354.3.579.2.462 Unknown [id number] 2.16.840.1.472821.3.579.2.462 Unknown [id number] 2.16.840.1.741740.3.579.2.462 Unknown [id number] 2.16.840.1.262492.3.579.2.462 Unknown [id number] 2.16.840.1.488149.3.579.2.462 Unknown [id number] 2.16.840.1.598577.3.579.2.462 Unknown [id number] 2.16.840.1.858339.3.579.2.462 Unknown [id number] 2.16.840.1.613960.3.579.2.462 Unknown [id number] 2.16.840.1.069536.3.579.2.462 Unknown [id number] 2.16.840.1.066153.3.579.2.462 Unknown [id number] 2.16.840.1.600249.3.579.2.462 Social History Date Type Detail Facility Start: 09-14-2021 End: 05-31-2025 Tobacco smoking status NHIS Ex-smoker [facility] Start: 09-14-2021 End: 11-16-2022 Tobacco use and exposure Smokeless tobacco non-user [facility] Start: 01-26-2022 End: 06-09-2025 Alcohol intake Ex-drinker (finding) [facility] Start: 1940 Sex Assigned At Not on file [facility] Start: 01-16-2022 End: 10-01-2022 Exposure to SARS-CoV-2 (event) Not sure [facility] History of tobacco use Current smoker [facility] Start: 11-16-2022 Tobacco Comment Light smoker f or 7 years in early adulthood [facility] Start: 03-07-2023 End: 02-25-2024 Tobacco smoking status [facility] Unknown if ever smoked [facility] Start: 1940 Sex Assigned At Female [facility] Start: 04-09-2023 End: 06-25-2023 History of Social function [facility] Work Phone: Start: 04-09-2023 End: 06-25-2023 Tobacco use panel [facility] Work Phone: Start: 08-10-2021 Adult Depression Screening Assessment 0 [facility] Work Phone: Has the [employer], or water [employer] threatened to shut off services in your home in past 12Mo No [facility] Work Phone: (I/We) worried cookie er (my/our) food would run out before (I/we) got money to buy more. Never true [facility] Start: 01-10-2025 End: 01-14-2025 Sex Female (finding) [facility] How hard is it for y ou to pay for the very basics like food, housing, medical care, and heating Somewhat hard [facility] NEGATED: Highlighted row Not [facility] Medical Equipment Procedure Code Equipment Code Equipment Origin al Text Equipment Identifier Dates ERCP (endoscopic retrograde cholangiopancreatog miguel angel) ([id number]) Polymer-metal biliary stent, non-bioabsorbable ()[id number] FDA Start: 06-01-2025 ERCP (endoscopic retrograde cholangiopancreatog miguel angel) Ligation clip, metallic [id number] FDA Start: 06-01-2025 Stent Advanix Naviflex 10fr [place] Thin Wall Plastic 7cm Biliary - [id number] Start: 01-15-2025 [id number] Start: 01-23-2025 End: 02-22-2025 Use with blood glucose test 2 times daily. Insulin Dep? Yes [id number] Start: 01-23-2025 Test 4 times zenia ly, Insulin Dep? Yes dm 2 uncontrolled. [id number] Start: 01-29-2025 Test Four times a day. Insulin Dep? Yes uncontrolled dm [id number] Start: 01-29-2025 1 each two times a day. [id number] Start: 03-18-2025 End: 04-17-2025 Insulin Syringe-Needle U-100 0.3 mL 31 gauge x 5/16 syringe Start: 06-15-2025 Insulin Syringe-Needle U-100 0.3 mL 31 gauge x 5/16 syringe Start: 06-15-2025 Goals Date Patient Goal Desired Activity /State Functional Status Date Assessment Result Facility 06-02-2025 Functional status Ambulates [facility] Work Phone: 02-14-2025 Are you deaf, or do you have serious difficulty hearing No 02/14/2025 2:14 PM Gloria Nolasco RN No [facility] 02-14-2025 Are you blind, or do you have serious difficulty seeing, even when wearing glasses No 02/14/2025 2:14 PM EDT Gloria Last RN No [facility] 02-14-2025 Do you have serious difficulty walking or climbing stairs Yes 02/14/2025 2:14 PM EDT Gloria Last RN Yes [facility] 02-14-2025 Do you have difficul ty dressing or bathing Yes 02/14/2025 2:14 PM EDT Gloria Last RN Yes [facility] 02-14-2025 Because of a physica l, mental, or emotional condition, do you have difficulty doing errands alone such as visiting a physician's office or shopping Yes 02/14/2025 2:14 PM EDT Gloria Last RN Yes [facility] 01-23-2025 Are you deaf, or do you have serious difficulty hearing No 01/23/2025 2:02 PM Nadeen Hoang RN No [facility] 01-23-2025 Are you blind, or do you have serious difficulty seeing, even when wearing glasses No 01/23/2025 2:02 PM Nadeen Hoang RN No [facility] 01-23-2025 Do you have serious difficulty walking or climbing stairs No 01/23/2025 2:02 PM Nadeen Hoang RN No [facility] 01-23-2025 Do you have difficul ty dressing or bathing No 01/23/2025 2:02 PM Nadeen Hoang RN No [facility] 01-23-2025 Because of a physica l, mental, or emotional condition, do you have difficulty doing errands alone such as visiting a physician's office or shopping No 01/23/2025 2:02 PM Nadeen Hoang RN No [facility] 01-14-2025 Functional status Ambulates;Up ad t[facility] Work Phone: Mental Status Date Assessment Result Facility 06-02-2025 Cognitive function Voice/Name [facility] Work Phone: 05-30-2025 Cognitive function Level Of Cons ciousness Awake;Alert;Appropriate;Fol lows Commands [facility] Work Phone: 02-14-2025 Because of a physica l, mental, or emotional condition, do you have serious difficulty concentrating, remembering, or making decisions No 02/14/2025 2:14 PM EDT Gloria Last, MAGNUS No [facility] 01-23-2025 Because of a physica l, mental, or emotional condition, do you have serious difficulty concentrating, remembering, or making decisions No 01/23/2025 2:02 PM EDT Nadeen Decker, MAGNUS No [facility] 01-14-2025 Cognitive function Voice/Name [facility] Work Phone: 01-09-2025 Cognitive function Level Of Cons ciousness Awake;Alert;Appropriate;Fol lows Commands [facility] Work Phone: 02-25-2024 Cognitive function Level Of Cons ciousness Awake;Alert;Appropriate;Fol lows Commands [facility] Work Phone: 04-22-2023 Cognitive function Level Of Cons ciousness Awake;Alert;Appropriate [facility] Work Phone: 04-05-2023 Cognitive function Level Of Cons ciousness Awake;Alert;Appropriate;Fol lows Commands [facility] Work Phone: 03-30-2023 Cognitive function Level Of Cons ciousness Awake;Alert;Appropriate;Fol lows Commands;Responds to vocal stimuli [facility] Work Phone: Clinical Notes 03-28-2021 to 07-27-2025 Telephone Encounter - Cris Garza MA - 06/29/2025 10:51 AM EDTTelephone Encounter - Cris Garza MA - 06/29/2025 10:51 AM EDTTelephone Encounter - Jose Ortiz LPN - 06/22/2025 9:35 AM EDT Note Date & Type Note [facility] 07-27-2025 Note [facility] 06-29-2025 Telephone encounter Note Closing encounter, 4 attempts tried, no response. Cris Garza MA June 29, 2025 10:52 AM [facility] 06-29-2025 Miscellaneous Notes Closing encounter, 4 attempts tried, no response. Cris Garza MA June 29, 2025 10:52 AM Letter mailed to pt. Jose Ortiz LPN Message left for pt to call back for results. Jazmyne Wan MA Notified via [employer]. Will wait for pt to read message. Jazmyne Wan MA Called and left a voicemail for the Patient to call back and ask for a nurse to receive the providers message. Lynette Ríos, RN Labs are stable. Sugars are actually improving. Do the best she can as far as keeping them in check. Sodium is low, recheck bmp in one week if still in [place] documented in this encounter [facility] 06-22-2025 Telephone encounter Note Letter mailed to pt. Jose Ortiz LPN [facility] 06-18-2025 Telephone encounter Note Message left for pt to call back for results. Jazmyne Wan MA [facility] 06-15-2025 Telephone encounter Note Notified via [employer]. Will wait for pt to read message. Jazmyne Wan MA [facility] 06-10-2025 Telephone encounter Note Called and left a voicemail for the Patient to call back and ask for a nurse to receive the providers message. Lynette Ríos RN [facility] 06-10-2025 Telephone encounter Note Labs are stable. Sugars are actually improving. Do the best she can as far as keeping them in check. Sodium is low, recheck bmp in one week if still in [place] T [facility] 06-09-2025 Note [facility] 06-09-2025 History of Present illness Narrative Telma Tineo is an 84-year-old female with a history of pancreatic malignancy, DM, and AFib, presenting for follow-up after recent hospitalization for acute cholangitis. HPI Acute Cholangitis: - Recent hospitalization at [facility] from 05/31 to 06/02 for acute cholangitis with hyperbilirubinemia. - Admitted with fever and abdominal pain. - Underwent ERCP with stent exchange on 06/[address] Brown. - Procedure revealed a single segmental biliary stricture in the lower and middle thirds of the main bile duct, appearing malignant. - Entire biliary tree was dilated with a mass causing obstruction; choledocholithiasis was also found. - Biliary sphincterotomy and balloon extraction performed; biliary tree was swept, and pus and debris were found. - Stent was removed, and a covered metal stent was placed in the common bile duct. - Palliative care recommended but Telma declines palliative and hospice care, preferring family support. - No current pain, fevers, chills, or jaundice; denies pruritus. - Reports nausea and decreased appetite. - Denies chest pain or dyspnea. - Considering returning to [place] for better quality of life. Hypokalemia: - Diagnosed during recent hospitalization; prescribed potassium 20 mEq BID. - Admits to non-compliance with potassium supplementation. Hyponatremia: - Diagnosed during recent hospitalization; suspected SIADH, monitored during stay. Diabetes Mellitus: - Non-compliant with blood glucose monitoring; refuses to use Tolu 3. - No reported hypoglycemic episodes. Atrial Fibrillation: - Well-controlled on current medication regimen. MEDICATIONS: Current Outpatient Medications Medication Sig metronidazole (FLAGYL PO) Take 500 mg by mouth three times a day. levoFLOXacin (LEVAQUIN) 500 mg tablet Take 500 mg by mouth once daily. insulin NPH-insulin regular 70/30 (NOVOLIN 70/30 [...] by mouth two times a day. Promethazine-DM (PHENERGAN-DM) 6.25-15 mg/5 mL syrup Take 5 mL by mouth four times a day as needed. alcohol swabs Use with blood glucose test 2 times daily. Insulin Dep? Yes metoprolol tartrate, short acting, (LOPRESSOR) 50 mg tablet Take 1.5 tablets by mouth two times a day. amLODIPine (NORVASC) 10 mg tablet Take 10 mg by mouth once daily. pantoprazole DR (PROTONIX) 40 mg tablet Take 1 tablet by mouth two times a day before meals at 6 am and 4 pm. Blood-Glucose Sensor (FREESTYLE TOLU 3 PLUS SENSOR) [...] sugar at least four (4) times daily. PEG 400-propylene glycol (SYSTANE ULTRA) 0.4-0.3 % ophthalmic solution Use 1 Drop in both eyes three times a day. Blood Pressure Test Kit-Large (Villij ARM BP MONITOR) 1 Each once daily. [...] Son No Ocular Disease No Family History SOCIAL HISTORY[1] Reviewed current medications, allergies, past medical history, surgical history, family history and social history today. REVIEW OF SYSTEMS Constitutional: (-) fever, (-) chills Eyes: (-) scleral icterus Cardiovascular: (-) chest pain Respiratory: (+) pleuritic chest discomfort, (-) dyspnea Gastrointestinal: (+) abdominal discomfort, (+) nausea, (+) diarrhea Skin: (-) jaundice, (-) pruritus Hematologic/Lymphatic: (-) bleeding, (-) easy bruising LAB REVIEWED: Labs: (05/31/2025) Admission Labs: - Bilirubin: Elevated (hyperbilirubinemia) - Serum Sodium: Low (hyponatremia), possibly related to SIADH - Serum Potassium: Low (hypokalemia) Tests: (06/02/2025) ERCP: - Segmental biliary stricture in the lower third and middle third of the main bile duct, malignant-appearing - Entire biliary tree dilated secondary to obstructing mass - Choledocholithiasis observed - Biliary sphincterotomy and balloon extraction performed with pus and debris noted - Existing stent removed and covered metal stent placed in the common bile duct VITALS: BP 116/70 Pulse 75 Wt 67.4 kg (148 lb 9.6 oz) SpO2 99% BMI 29.02 kg/m Last 4 Encounter Wt Readings: Date: Wt: 06/09/2025 67.4 kg (148 lb 9.6 oz) 05/25/2025 69.9 kg (154 lb) 04/06/2025 68 kg (150 lb) 03/30/2025 68.9 kg (152 lb) PHYSICAL EXAMINATION: GENERAL: NAD, alert and oriented. SKIN: Unremarkable, no rash or skin lesions, no jaundice, no scleral icterus. HEAD: Normocephalic. NECK: Supple, no lymphadenopathy, normal thyroid, no carotid bruits. LUNGS: Clear to auscultation bilaterally, no wheezes/rhonchi/rales. HEART: Regular rate and rhythm, no murmurs. No ectopy. ABDOMEN: Soft, non-tender, bowel sounds present. EXTREMITIES: Normal, no deformities, no skin discoloration, no edema. ASSESSMENT AND PLAN 1. Cholangitis (HCC) (K83.09) 2. Obstruction of biliary stent, subsequent encounter (T85.590D) 3. 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) (C25.0) 4. Pancreatic adenocarcinoma (HCC) (C25.9) - Recent hospitalization (05/31-06/02/2025) for acute cholangitis with hyperbilirubinemia secondary to malignant biliary obstruction from pancreatic adenocarcinoma. - ERCP with stent exchange performed by Dr. Brown on 06/02; malignant-appearing biliary strictures in lower and middle thirds of main bile duct, biliary tree dilation, and choledocholithiasis noted; biliary sphincterotomy, balloon extraction, and placement of covered metal stent in common bile duct performed. - Discharged on levofloxacin 500 mg daily for 7 days and metronidazole 500 mg TID for 21 days. - Patient reports ongoing nausea and diarrhea, likely antibiotic-related. - Discussed palliative care and hospice options; patient and family declined, preferring family support. - Educated on palliative and hospice care as supportive options if needed in the future. - Follow-up with Dr. Brown not required unless symptoms worsen. - CBC and CMP ordered to monitor for ongoing infection, biliary obstruction, and electrolyte abnormalities. - Follow-up in 2 months, or sooner if needed. 5. Cerebrovascular accident (CVA), unspecified mechanism (HCC) (I63.9) - stable. 6. Atrial fibrillation, unspecified type (HCC) (I48.91) - Stable; no changes to current management. 7. Hyperlipidemia, unspecified hyperlipidemia type (E78.5) - stable. 8. 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 9. Primary hypertension (I10) - Blood pressure stable at 116 mmHg systolic during recent hospitalization. 10. Bronchiectasis without complication (HCC) (J47.9) no change. 11. Mild intermittent asthma without complication (HCC) (J45.20) - stable. 12. Gastroesophageal reflux disease without esophagitis (K21.9) - Refill for pantoprazole provided. (See patient after visit summary for additional instructions to patient) Henok Martinez MD Recording using [employer] software for draft documentation of the visit was discussed with the patient/authorized account retention representative; all questions welcomed and answered. Patient/authorized account retention representative agreed to proceed [1] Social History Tobacco Use Smoking status: Former Smokeless tobacco: Never Tobacco comments: Light smoker for 7 years in early adulthood Vaping Use Vaping status: Never Used Substance Use Topics Alcohol use: Not Currently Drug use: Never documented in this encounter [facility] 06-09-2025 Instructions Henok Martinez MD - 06/09/2025 11:43 AM EDT - Have your blood drawn today for a complete blood count (CBC), comprehensive metabolic panel (CMP) and A1c before you leave the clinic. - Continue levofloxacin 500 mg by mouth once daily for 7 days. - Continue metronidazole 500 mg by mouth three times daily for 21 days. - we will decide on ongoing need of potassium once today s potassium result returns. - Diarrhea may persist while you re on antibiotics and should improve after you finish them; if you develop severe or prolonged vomiting or diarrhea, call our office. - Watch for fever, chills, yellowing of your skin or eyes, or new abdominal pain; if any of these occur, contact the clinic promptly. - Plan to return to this clinic in about two months to review your labs and check in on how you re doing. If you have questions or concerns before then--whether you re here or in [place]--please let us know. documented in this encounter [facility] 06-03-2025 Note [facility] 06-03-2025 Note [facility] 06-03-2025 Note [facility] 06-02-2025 Consult note [facility] 06-02-2025 Discharge summary Note Date/Time June 02, 2025 8:38am [facility] Medical Records Department [address] [place] [address] Discharge Summary 06/02/25 0752 MR#: [id number] Acct: [id number] Name: TELMA TINEO Rep #:[id number] : 1940 84 From: Oniel Santana MD PCP: Dr. Henok Mratinez MD Status:ADM I N Location: [place] [address] Providers Date of Admission: 05/31/25 Date of Discharge: 06/02/25 Primary Care Physician: Dr. Henok Martinez MD Consultations 05/31/25 07:50 Consult: Gastroenterology Routine Consulting Provider: [facility] Reason for Consult: Colangitis with Pancreatic Cancer EMERGENT Consult: No MD Notified: Yes Date Notified: 05/31/25 Time Notified: 07:50 Method of Notification: Text Comments:: Pt wants to remain full code Reason For Visit: ACUTE CHOLANGITIS WITH HYPERBILIRUBINEMIA Diagnosis Discharge Diagnosis (1) Cholangiolitis: Status: Acute Code(s): K83.09 - Other cholangitis (2) Hyperbilirubinemia: Status: Acute Code(s): E80.6 - Other disorders of bilirubin metabolism (3) Transaminitis: Status: Acute Code(s): R74.01 - Elevation of levels of liver transaminase levels (4) Pancreatic cancer: Status: Acute Code(s): C25.9 - Malignant 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, unspecified Qualifiers: Pancreatic malignancy location: unspecified Qualified Code(s): C25.9 - Malignant 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, unspecified (5) Hyponatremia: Status: Acute Code(s): E87.1 - Hypo-osmolality and hyponatremia (6) Hypokalemia: Status: Acute Code(s): E87.6 - Hypokalemia (7) Type 2 diabetes mellitus with hyperglycemia: Status: Acute Code(s): E11.65 - Type 2 diabetes mellitus with hyperglycemia Qualifiers: Diabetes mellitus manager terminal insulin use: without manager terminal use Qualified Code(s): E11.65 - Type 2 diabetes mellitus with hyperglycemia Plan Patient is an 84-year-old lady with recent diagnosis of pancreatic carcinoma whopresented to the emergency department with fever and abdominal pain. An assessment of acute cholangitis made started on broad-spectrum antibiotic therapy admitted to regular nursing floor for further management 1. Suspected acute cholangitis ? In a patient with underlying pancreatic CA with previous stent placement. Patient was placed on broad-spectrum antibiotic therapy consult placed to GI patient seen by Dr. Brown plan is for patient to undergo ERCP with stent exchange ? 06/02/2025; ERCP and procedures performed as A single segmental biliary stricture was found in the lower third of the main bile duct and middle third of the main bile duct. The stricture was malignant appearing. - The entire biliary tree was severely dilated, with a mass causing an obstruction.- Choledocholithiasis was found. Complete removal was accomplished by biliary sphincterotomy and balloon extraction.- A biliary sphincterotomy was performed. - The biliary tree was swept and pus and debris were found. - One stent was removed from the biliary tree. One covered metal stent was placed into the common bile duct. 2. Pancreatic CA ? Patient underwent pancreatic duct placement at [facility], started on chemobut stopped 2 weeks because of side effects. GI currently recommending palliative care consultation 3. 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 Sodium level on admission was 131, 139 asof 06/01/2025. Will continue with subsequent monitoring of sodium levels 4. Hypokalemia ? Patient potassium levels on admission was 3.1 still remains 3.1 additional potassium replacement given 5. Diabetes mellitus type II Placed on long acting insulin, Accu-Cheks a.c. and at bedtime and covered with sliding scale insulin 6. Chronic A-fib ? Rate controlled on metoprolol and systemic anticoagulation with apixaban. Apixaban held on admission 7. GERD ? On PPI 8. Anemia ? Secondary to chronic disorder/anemia of malignancy monitoring H&H and transfuse if patient becomes symptomatic or hemoglobin falls below 7 9. Dyslipidemia ?Patient is on statin therapy, continued at home dose 10. History of previous TIA/CVA ? Resultant mild cognitive impairment 11. Mild intermittent asthma ? Currently not in exacerbation aerosol treatment as needed 12. DVT prophylaxis ? Subcu Lovenox for Time spent in the patient's overall evaluation,decision-making process, review of diagnostic data, adjustment of management, discussion with other providers, nursing nursing and ancillary staff involved in patient's care documentation, 35 Minutes Medications at Discharge Home Medications pantoprazole 40 mg tablet,delayed release 40 mg PO DAILY gerd #90 tabs 08/28/21 atorvastatin 20 mg tablet 20 mg PO QHS hld 03/07/23 losartan 100 mg tablet 100 mg PO DAILY bp 03/07/23 metoprolol tartrate 50 mg tablet 50 mg PO BID heart 11/21/23 apixaban 5 mg tablet 5 mg PO BID blood thinner #180 tabs 04/28/24 amlodipine 10 mg tablet 10 mg PO DAILY bp #90 tabs 11/10/24 levofloxacin 500 mg tablet 500 mg PO DAILY #7 tabs 06/02/25 metronidazole 500 mg tablet 500 mg PO TID #21 tabs 06/02/25 potassium chloride 20 mEq tablet,extended release(part/cryst) 20 meq PO BIDCM #30 tabs 06/02/25 Physical Exam Narrative GENERAL: cooperative HEENT: Atraumatic; normocephalic EYES; Anicteric, Normal Conjunctiva NECK; supple, normal thyroid, RESPIRATORY: Diminished to auscultation CARDIOVASCULAR: Regular S1 S2, GI: soft, normoactive bowel sounds, : No Renal angle tenderness; EXTREMITIES: No edema, no clubbing, MUSCULOSKELETAL: no muscle wasting NEURO: Awake; no lateralizing signs. SKIN: No Rash PSYCH; Flat affect Weight / BMI Weight Weight: 67.1 kg Body Mass Index (BMI) 29.0 ABG / Lab / Microbiology Data 06/01/25 05:12 06/01/25 05:12 Microbiology: Microbiology 05/30/25 23:43 Blood Culture (Wb) - Left Hand Blood Culture - Preliminary No growth in 48 hours. 05/30/25 21:55 Blood Culture (Wb) - Anticubital Right Blood Culture - Preliminary No growth in 48 hours. 05/30/25 22:15 Mucosa - Nose SARS-CoV-2, Influenza & RSV (PCR) - Final Radiography Diagnostic Testing: Radiology Impression Endo Retro Cholangiopancreatogram 06/01/25 16:49 IMPRESSION: Intraoperative fluoroscopy for ERCP, as above. Reading Location: [facility] D/C Instructions Discharge Activity: Return to Normal Activity Call your doctor if you observe: Fever of 101 or Higher, Shortness of breath, Fainting spells and Chest pain DC O2, CPAP, BIPAP Needs Home O2 Discharge instructions: No Meaningful Use Info Meaningful Use Meaningful Use Diagnoses (Choose all that apply): None applicable Discharge Plan Admission Admit Date/Time: 05/31/25 03:58 Attending Provider: Oniel Santana Primary Care Provider: Henok Martinez Consulting Providers: Oniel Golden; Jacoby Dunlap Discharge Orders/Prescriptions Prescriptions: New potassium chloride 20 mEq Tablet,Er Particles/Crystals 20 meq PO BIDCM Qty: 30 0RF levofloxacin 500 mg tablet 500 mg PO DAILY Qty: 7 0RF metronidazole 500 mg tablet 500 mg PO TID Qty: 21 0RF Continued pantoprazole 40 mg tablet,delayed release (DR/EC) 40 [...] 10 mg PO DAILY Qty: 90 3RF Referrals / Follow Up: Mohit Brown DO [Med Staff - Active Staff] - Within 2 Weeks Henok Martinez MD [Primary Care Provider] - Within 1 Week Disposition Disposition (needs filled in before D/C Order can be placed): Home, Self Care Charges/Coding Visit Charges Inpatient E&M: 77905 Disch Hosp >30min 06/02/25 0838 <Electronically signed by Oniel Santana MD> Cosigner Signature (if applicable): CC: Dr. Oniel Santana MD; Dr. Henok Martinez MD~ Signed [facility] Work Phone: 1(709) 232-454708-06-2025 Progress note Author Oniel Santana [facility] Note Date/Time June 02, 2025 7:5 2am [facility] Medical Records Department [address] [place] [address] Progress Note - Hospitalist 06/02/25 0747 MR#: [id number] Acct: [id number] Name: TELMA TINEO Rep #:[id number] : 1940 84 From: Oniel Santana MD PCP: Dr. Henok Martinez MD Status:ADM I N Location: [place] [address] Reason for Visit Chief Complaint: Fever and Abdominal Pain. Subjective Subjective Patient underwent ERCP the day prior findings as below. Patient refusing lab draws this morning. Plan is for patient to be assessed for possible discharge this a.m. Objective Data Objective Data Vital Signs: Vital Signs Temp Pulse Resp BP Pulse Ox O2 Del Method 98.1 F 91 15 175/77 H 97 Room Air 06/02/25 05:00 06/02/25 05:47 06/02/25 05:00 06/02/25 05:47 06/02/25 05:00 06/02/25 06:41 Oxygen Delivery Method Room Air Weight: 67.1 kg Body Mass Index (BMI) 29.0 Intake & Output: Intake and Output for Last 24 Hours 05/31/25 06/01/25 06/02/25 23:59 23:59 23:59 Intake Total 2272.92 / 2272.92 1600.00 / 1600.00 600 / 600 Output Total 2 / 2 Balance 2272.92 / 2272.92 1598.00 / 1598.00 600 / 600 Lab / Micro Data 06/01/25 05:12 06/01/25 05:12 Micro: Microbiology 05/30/25 22:15 Mucosa - Nose SARS-CoV-2, Influenza & RSV (PCR) - Final Radiography Diagnostic Testing: Radiology Impression Endo Retro Cholangiopancreatogram 06/01/25 16:49 IMPRESSION: Intraoperative fluoroscopy for ERCP, as above. Reading Location: [facility] Physical Exam Narrative GENERAL: cooperative HEENT: Atraumatic; normocephalic EYES; Anicteric, Normal Conjunctiva NECK; supple, normal thyroid, RESPIRATORY: Diminished to auscultation CARDIOVASCULAR: Regular S1 S2, GI: soft, normoactive bowel sounds, : No Renal angle tenderness; EXTREMITIES: No edema, no clubbing, MUSCULOSKELETAL: no muscle wasting NEURO: Awake; no lateralizing signs. SKIN: No Rash PSYCH; Flat affect Assessment & Plan Assessment/Plan (1) Cholangiolitis: (2) Hyperbilirubinemia: (3) Transaminitis: (4) Pancreatic cancer: QUALIFIERS: Pancreatic malignancy location: unspecified QualifiedCode(s): C25.9 - Malignant 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, unspecified (5) Hyponatremia: (6) Hypokalemia: (7) Type 2 diabetes mellitus with hyperglycemia: QUALIFIERS: Diabetes mellitus manager terminal insulin use: without nursing home use Qualified Code(s): E11.65 - Type 2 diabetes mellitus with hyperglycemia PLAN: Plan Patient is an 84-year-old lady with recent diagnosis of pancreatic carcinoma whopresented to the emergency department with fever and abdominal pain. An assessment of acute cholangitis made started on broad-spectrum antibiotic therapy admitted to regular nursing floor for further management 1. Suspected acute cholangitis ? In a patient with underlying pancreatic CA with previous stent placement. Patient was placed on broad-spectrum antibiotic therapy consult placed to GI patient seen by Dr. Brown plan is for patient to undergo ERCP with stent exchange ? 06/02/2025; ERCP and procedures performed as A single segmental biliary stricture was found in the lower third of the main bile duct and middle third of the main bile duct. The stricture was malignant appearing. - The entire biliary tree was severely dilated, with a mass causing an obstruction.- Choledocholithiasis was found. Complete removal was accomplished by biliary sphincterotomy and balloon extraction.- A biliary sphincterotomy was performed. - The biliary tree was swept and pus and debris were found. - One stent was removed from the biliary tree. One covered metal stent was placed into the common bile duct. 2. Pancreatic CA ? Patient underwent pancreatic duct placement at [facility], started on chemobut stopped 2 weeks because of side effects. GI currently recommending palliative care consultation 3. 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 Sodium level on admission was 131, 139 asof 06/01/2025. Will continue with subsequent monitoring of sodium levels 4. Hypokalemia ? Patient potassium levels on admission was 3.1 still remains 3.1 additional potassium replacement given 5. Diabetes mellitus type II Placed on long acting insulin, Accu-Cheks a.c. and at bedtime and covered with sliding scale insulin 6. Chronic A-fib ? Rate controlled on metoprolol and systemic anticoagulation with apixaban. Apixaban held on admission 7. GERD ? On PPI 8. Anemia ? Secondary to chronic disorder/anemia of malignancy monitoring H&H and transfuse if patient becomes symptomatic or hemoglobin falls below 7 9. Dyslipidemia ?Patient is on statin therapy, continued at home dose 10. History of previous TIA/CVA ? Resultant mild cognitive impairment 11. Mild intermittent asthma ? Currently not in exacerbation aerosol treatment as needed 12. DVT prophylaxis ? Subcu Lovenox for Time spent in the patient's overall evaluation,decision-making process, review of diagnostic data, adjustment of management, discussion with other providers, nursing nursing and ancillary staff involved in patient's care documentation, 52 Minutes Charges/Coding Visit Charges Inpatient E&M: 31868 Subs Hosp L2 06/02/25 0752 <Electronically signed by Oniel Santana MD> Cosigner Signature (if applicable): CC: ~ Signed [facility] Work Phone: 1(347) 782-886008-06-2025 Discharge summary [facility] Medical Records Department [address] [place] [address] Discharge Summary 06/02/25751 MR#: [id number] Acct: [id number] Name: TELMA TINEO Rep #:[id number] : 1940 84 From: Oniel Santana MD PCP: Dr. Henok Martinez MD Status:ADM I N [facility] Prov[facility] Date of Admission: 05/31/25 Date of Discharge: 06/02/25 Primary Care Physician: Dr. Henok Martinez MD Consultations 05/31/25 07:50 Consult: Gastroenterology Routine Consulting Provider: [facility] Reason for Consult: Colangitis with Pancreatic Cancer EMERGENT Consult: No MD Notified: Yes Date Notified: 05/31/25 Time Notified: 07:50 Method of Notification: Text Comments:: Pt wants to remain full code Reason For Visit: ACUTE CHOLANGITIS WITH HYPERBILIRUBINEMIA Diagnosis Discharge Diagnosis (1) Cholangiolitis: Status: Acute Code(s): K83.09 - Other cholangitis (2) Hyperbilirubinemia: Status: Acute Code(s): E80.6 - Other disorders of bilirubin metabolism (3) Transaminitis: Status: Acute Code(s): R74.01 - Elevation of levels of liver transaminase levels (4) Pancreatic cancer: Status: Acute Code(s): C25.9 - Malignant 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, unspecified Qualifiers: Pancreatic malignancy location: unspecified Qualified Code(s): C25.9 - Malignant 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, unspecified (5) Hyponatremia: Status: Acute Code(s): E87.1 - Hypo-osmolality and hyponatremia (6) Hypokalemia: Status: Acute Code(s): E87.6 - Hypokalemia (7) Type 2 diabetes mellitus with hyperglycemia: Status: Acute Code(s): E11.65 - Type 2 diabetes mellitus with hyperglycemia Qualifiers: Diabetes mellitus nursing home insulin use: without manager terminal use Qualified Code(s): E11.65 - Type 2 diabetes mellitus with hyperglycemia Plan Patient is an 84-year-old lady with recent diagnosis of pancreatic carcinoma whopresented to the emergency department with fever and abdominal pain. An assessment of acute cholangitis made started onbroad-spectrum antibiotic therapy admitted to regular nursing floor for further management 1. Suspected acute cholangitis ? In a patient with underlying pancreatic CA with previous stent placement. Patient was placed on broad-spectrum antibiotic therapy consult placed to GI patient seen by Dr. Brown plan is for patientto undergo ERCP with stent exchange ? 06/02/2025; ERCP and procedures performed as A single segmental biliary stricture was found in the lower third of the main bile duct and middle third of the main bile duct. The stricture was malignant appearing. - The entire biliary tree was severely dilated, with a mass causing an obstruction.- Choledocholithiasis was found. Complete removalwas accomplished by biliary sphincterotomy and balloon extraction.- A biliary sphincterotomy was performed. - The biliary tree was swept and pus and debris were found. - One stent was removed from the biliary tree. One covered metal stent was placed into the common bile duct. 2. Pancreatic CA ? Patient underwent pancreatic duct placement at [facility], started on chemobut stopped 2 weeksbecause of side effects. GI currently recommending palliative care consultation 3. 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 Sodium level on admission was 131, 139 asof 06/01/2025. Will continue with subsequent monitoring of sodium levels 4. Hypokalemia ? Patient potassium levels on admission was 3.1 still remains 3.1 additional potassium replacement given 5. Diabetes mellitus type II Placed on long acting insulin, Accu-Cheks a.c. and at bedtime and covered with sliding scale insulin 6. Chronic A-fib ? Rate controlled on metoprolol and systemic anticoagulation with apixaban. Apixaban held on admission 7. GERD ? On PPI 8. Anemia ? Secondary to chronic disorder/anemia of malignancy monitoring H&H and transfuse if patient becomes symptomatic or hemoglobin falls below 7 9. Dyslipidemia ?Patient is on statin therapy, continued at home dose 10. History of previous TIA/CVA ? Resultant mild cognitive impairment 11. Mild intermittent asthma ? Currently not in exacerbation aerosol treatment as needed 12. DVT prophylaxis ? Subcu Lovenox for Time spent in the patient's overall evaluation,decision-making process, review of diagnostic data, adjustment of management, discussion with other providers, nursing nursing and ancillary staff involved in patient's care documentation, 35 Minutes Medications at Discharge Home Medications pantoprazole 40 mg tablet,delayed release 40 mg PO DAILY gerd #90 tabs 08/28/21 atorvastatin 20 mg tablet 20 mg PO QHS hld 03/07/23 losartan 100 mg tablet 100 mg PO DAILY bp 03/07/23 metoprolol tartrate 50 mg tablet 50 mg PO BID heart 11/21/23 apixaban 5 mg tablet 5 mg PO BID blood thinner #180 tabs 04/28/24 amlodipine 10 mg tablet 10 mg PO DAILY bp #90 tabs 11/10/24 levofloxacin 500 mg tablet 500 mg PO DAILY #7 tabs 06/02/25 metronidazole 500 mg tablet 500 mg PO TID #21 tabs 06/02/25 potassium chloride 20 mEq tablet,extended release(part/cryst) 20 meq PO BIDCM #30 tabs 06/02/25 Physical Exam Narrative GENERAL: cooperative HEENT: Atraumatic; normocephalic EYES; Anicteric, Normal Conjunctiva NECK; supple, normal thyroid, RESPIRATORY: Diminished to auscultation CARDIOVASCULAR: Regular S1 S2, GI: soft, normoactive bowel sounds, : No Renal angle tenderness; EXTREMITIES: No edema, no clubbing, MUSCULOSKELETAL: no muscle wasting NEURO: Awake; no lateralizing signs. SKIN: No Rash PSYCH; Flat affect Weight / BMI Weight Weight: 67.1 kg Body Mass Index (BMI) 29.0 ABG / Lab / Microbiology Data 06/01/25 05:12 06/01/25 05:12 Microbiology: Microbiology 05/30/25 23:43 Blood Culture (Wb) - Left Hand Blood Culture - Preliminary No growth in 48 hours. 05/30/25 21:55 Blood Culture (Wb) - Anticubital Right Blood Culture - Preliminary No growth in 48 hours. 05/30/25 22:15 Mucosa - Nose SARS-CoV-2, Influenza & RSV (PCR) - Final Radiography Diagnostic Testing: Radiology Impression Endo Retro Cholangiopancreatogram 06/01/25 16:49 IMPRESSION: Intraoperative fluoroscopy for ERCP, as above. Reading Location: [facility] D/C Instructions Discharge Activity: Return to Normal Activity Call your doctor if you observe: Fever of 101 or Higher, Shortness of breath, Fainting spells and Chest pain DC O2, CPAP, BIPAP Needs Home O2 Discharge instructions: No Meaningful Use Info Meaningful Use Meaningful Use Diagnoses (Choose all that apply): None applicable Discharge Plan Admission Admit Date/Time: 05/31/25 03:58 Attending Provider: Oniel Santana Primary Care Provider: Henok Martinez Consulting Providers: Oniel Golden; Jacoby Dunlap Discharge Orders/Prescriptions Prescriptions: New potassium chloride 20 mEq Tablet,Er Particles/Crystals 20 meq PO BIDCM Qty: 30 0RF levofloxacin 500 mg tablet 500 mg PO DAILY Qty: 7 0RF metronidazole 500 mg tablet 500 mg PO TID Qty: 21 0RF Continued pantoprazole 40 mg tablet,delayed release (DR/EC) 40 [...] 10 mg PO DAILY Qty: 90 3RF Referrals / Follow Up: FriendMohit DO [Med Staff - Active Staff] - Within 2 Weeks [place],Henok, MD [Primary Care Provider] - Within 1 Week Disposition Disposition (needs filled in before D/C Order can be placed): Home, Self Care Charges/Coding Visit Charges Inpatient E&M: 20767 Disch Hosp >30min 06/02/25 0838 Cosigner Signature (if applicable): CC: Dr. Oniel Santana MD; Dr. Henok Martinez MD~ Signed [facility]08-06-2025 [facility] Medical Records Department [address] [place] [address] Discharge Summary 06/02/25 0752 MR#: [id number] Acct: [id number] Name: TELMA TINEO Rep #: [id number] : 1940 84 From: Oniel Santana MD PCP: Dr. Henok Martinez MD Status:ADM IN Location: [place] [address] Providers Date of Admission: 05/31/25 Date of Discharge: 06/02/25 Primary Care Physician: Dr. Henok Martinez MD Consultations 05/31/25 07:50 Consult: Gastroenterology Routine Consulting Provider: [facility] Reason for Consult: Colangitis with Pancreatic Cancer EMERGENT Consult: No MD Notified: Yes Date Notified: 05/31/25 Time Notified: 07:50 Method of Notification: Text Comments:: Pt wants to remain full code Reason For Visit: ACUTE CHOLANGITIS WITH HYPERBILIRUBINEMIA Diagnosis Discharge Diagnosis (1) Cholangiolitis: Status: Acute Code(s): K83.09 - Other cholangitis (2) Hyperbilirubinemia: Status: Acute Code(s): E80.6 - Other disorders of bilirubin metabolism (3) Transaminitis: Status: Acute Code(s): R74.01 - Elevation of levels of liver transaminase levels (4) Pancreatic cancer: Status: Acute Code(s): C25.9 - Malignant 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, unspecified Qualifiers: Pancreatic malignancy location: unspecified Qualified Code(s): C25.9 - Malignant 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, unspecified (5) Hyponatremia: Status: Acute Code(s): E87.1 - Hypo-osmolality and hyponatremia (6) Hypokalemia: Status: Acute Code(s): E87.6 - Hypokalemia (7) Type 2 diabetes mellitus with hyperglycemia: Status: Acute Code(s): E11.65 - Type 2 diabetes mellitus with hyperglycemia Qualifiers: Diabetes mellitus nursing home insulin use: without manager terminal use Qualified Code(s): E11.65 - Type 2 diabetes mellitus with hyperglycemia Plan Patient is an 84-year-old lady with recent diagnosis of pancreatic carcinoma who presented to the emergency department with fever and abdominal pain. An assessment of acute cholangitis made started on broad-spectrum antibiotic therapy admitted to regular nursing floor for further management 1. Suspected acute cholangitis ??? In a patient with underlying pancreatic CA with previous stent placement. Patient was placed on broad-spectrum antibiotic therapy consult placed to GI patient seen by Dr. Brown plan is for patient to undergo ERCP with stent exchange ??? 06/02/2025; ERCP and procedures performed as A single segmental biliary stricture was found in the lower third of the main bile duct and middle third of the main bile duct. The stricture was malignant appearing. - The entire biliary tree was severely dilated, with a mass causing an obstruction.- Choledocholithiasis was found. Complete removal was accomplished by biliary sphincterotomy and balloon extraction.- A biliary sphincterotomy was performed. - The biliary tree was swept and pus and debris were found. - One stent was removed from the biliary tree. One covered metal stent was placed into the common bile duct. 2. Pancreatic CA ??? Patient underwent pancreatic duct placement at [facility], started on chemo but stopped 2 weeks because of side effects. GI currently recommending palliative care consultation 3. Hyponatremia ??? 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 Sodium level on admission was 131, 139 as of 06/01/2025. Will continue with subsequent monitoring of sodium levels 4. Hypokalemia ??? Patient potassium levels on admission was 3.1 still remains 3.1 additional potassium replacement given 5. Diabetes mellitus type II Placed on long acting insulin, Accu-Cheks a.c. and at bedtime and covered with sliding scale insulin 6. Chronic A-fib ??? Rate controlled on metoprolol and systemic anticoagulation with apixaban. Apixaban held on admission 7. GERD ??? On PPI 8. Anemia ??? Secondary to chronic disorder/anemia of malignancy monitoring H H and transfuse if patient becomes symptomatic or hemoglobin falls below 7 9. Dyslipidemia ???Patient is on statin therapy, continued at home dose 10. History of previous TIA/CVA ??? Resultant mild cognitive impairment 11. Mild intermittent asthma ??? Currently not in exacerbation aerosol treatment as needed 12. DVT prophylaxis ??? Subcu Lovenox for Time spent in the patient's overall evaluation,decision-making process, review of diagnostic data, adjustment of management, discussion with other providers, nursing nursing and ancillary staff involved in patient's care documentation, 35 Minutes Medications at Discharge Home Medications pantoprazole 40 mg tablet,delayed release 40 mg PO DAILY gerd #90 tabs 08/28/21 atorvastatin 20 mg tablet 20 mg PO QHS hld 03/07/23 losartan 100 mg tablet 100 mg PO DAILY bp 03/07/23 metoprolol tartrate 50 mg tablet 50 mg PO BID heart 11/21/23 apixaban 5 mg tablet 5 mg PO BID blood thinner #1 (more content not included)... [facility]08-06-2025 Progress note [facility] Medical Records Department [address] [place] [address] Progress Note - Hospitalist 06/02/25 0747 MR#: [id number] Acct: [id number] Name: TELMA TINEO Rep #:[id number] : 1940 84 From: Oniel Santana MD PCP: Dr. Henok Martinez MD Status:ADM I N Location: [place] [address] Reason for Visit Chief Complaint: Fever and Abdominal Pain. Subjective Subjective Patient underwent ERCP the day prior findings as below. Patient refusing lab draws this morning. Plan is for patient to be assessed for possible discharge this a.m. Objective Data Objective Data Vital Signs: Vital Signs Temp Pulse Resp BP Pulse Ox O2 Del Method 98.1 F 91 15 175/77 H 97 Room Air 06/02/25 05:00 06/02/25 05:47 06/02/25 05:00 06/02/25 05:47 06/02/25 05:00 06/02/25 06:41 Oxygen Delivery Method Room Air Weight: 67.1 kg Body Mass Index (BMI) 29.0 Intake & Output: Intake and Output for Last 24 Hours 05/31/25 06/01/25 06/02/25 23:59 23:59 23:59 Intake Total 2272.92 / 2272.92 1600.00 / 1600.00 600 / 600 Output Total / 2 Balance 2272.92 / 2272.92 1598.00 / 1598.00 600 / 600 Lab / Micro Data 06/01/25 05:12 06/01/25 05:12 Micro: Microbiology 05/30/25 22:15 Mucosa - Nose SARS-CoV-2, Influenza & RSV (PCR) - Final Radiography Diagnostic Testing: Radiology Impression Endo Retro Cholangiopancreatogram 06/01/25 16:49 IMPRESSION: Intraoperative fluoroscopy for ERCP, as above. Reading Location: [facility] Physical Exam Narrative GENERAL: cooperative HEENT: Atraumatic; normocephalic EYES; Anicteric, Normal Conjunctiva NECK; supple, normal thyroid, RESPIRATORY: Diminished to auscultation CARDIOVASCULAR: Regular S1 S2, GI: soft, normoactive bowel sounds, : No Renal angle tenderness; EXTREMITIES: No edema, no clubbing, MUSCULOSKELETAL: no muscle wasting NEURO: Awake; no lateralizing signs. SKIN: No Rash PSYCH; Flat affect Assessment & Plan Assessment/Plan (1) Cholangiolitis: (2) Hyperbilirubinemia: (3) Transaminitis: (4) Pancreatic cancer: QUALIFIERS: Pancreatic malignancy location: unspecified QualifiedCode(s): C25.9 - Malignant 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, unspecified (5) Hyponatremia: (6) Hypokalemia: (7) Type 2 diabetes mellitus with hyperglycemia: QUALIFIERS: Diabetes mellitus manager terminal insulin use: without manager terminal use Qualified Code(s): E11.65 - Type 2 diabetes mellitus with hyperglycemia PLAN: Plan Patient is an 84-year-old lady with recent diagnosis of pancreatic carcinoma whopresented to the emergency department with fever and abdominal pain. An assessment of acute cholangitis made started onbroad-spectrum antibiotic therapy admitted to regular nursing floor for further management 1. Suspected acute cholangitis ? In a patient with underlying pancreatic CA with previous stent placement. Patient was placed on broad-spectrum antibiotic therapy consult placed to GI patient seen by Dr. Brown plan is for patientto undergo ERCP with stent exchange ? 06/02/2025; ERCP and procedures performed as A single segmental biliary stricture was found in the lower third of the main bile duct and middle third of the main bile duct. The stricture was malignant appearing. - The entire biliary tree was severely dilated, with a mass causing an obstruction.- Choledocholithiasis was found. Complete removalwas accomplished by biliary sphincterotomy and balloon extraction.- A biliary sphincterotomy was performed. - The biliary tree was swept and pus and debris were found. - One stent was removed from the biliary tree. One covered metal stent was placed into the common bile duct. 2. Pancreatic CA ? Patient underwent pancreatic duct placement at [facility], started on chemobut stopped 2 weeksbecause of side effects. GI currently recommending palliative care consultation 3. 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 Sodium level on admission was 131, 139 asof 06/01/2025. Will continue with subsequent monitoring of sodium levels 4. Hypokalemia ? Patient potassium levels on admission was 3.1 still remains 3.1 additional potassium replacement given 5. Diabetes mellitus type II Placed on long acting insulin, Accu-Cheks a.c. and at bedtime and covered with sliding scale insulin 6. Chronic A-fib ? Rate controlled on metoprolol and systemic anticoagulation with apixaban. Apixaban held on admission 7. GERD ? On PPI 8. Anemia ? Secondary to chronic disorder/anemia of malignancy monitoring H&H and transfuse if patient becomes symptomatic or hemoglobin falls below 7 9. Dyslipidemia ?Patient is on statin therapy, continued at home dose 10. History of previous TIA/CVA ? Resultant mild cognitive impairment 11. Mild intermittent asthma ? Currently not in exacerbation aerosol treatment as needed 12. DVT prophylaxis ? Subcu Lovenox for Time spent in the patient's overall evaluation,decision-making process, review of diagnostic data, adjustment of management, discussion with other providers, nursing nursing and ancillary staff involved in patient's care documentation, 52 Minutes Charges/Coding Visit Charges Inpatient E&M: 00816 Subs Hosp L2 06/02/25 0752 Cosigner Signature (if applicable): CC: ~ Signed [facility]08-05-2025 Consult note Author Perez Weeks [facility] Note Date/Time June 01, 2025 8:1 1pm [facility] Medical Records Department [address] [facility] [place] [address] Anesthesia Postop Eval II 06/01/252010 MR#: [id number] Acct: [id number] Name: TELMA TINEO Rep #:[id number] : 1940 84 From: Perez Magaña PCP: Dr. Henok Martinez MD Status:ADM I N Y Race: H Location: [place] [address] Anesthesia Postop Eval I Sum Postop Eval Completion status Anesthesia document: Postop Eval 1 completed: Yes Anesthesia Postop Eval I Summary Anesthesia Postop Eval I Summary: Anesthesia Postop Eval I: Assessment Summary Airway patent Yes 06/01/25 15:56 PUTTYING AND CALKING SUPERVISOR.TNES Spontaneous unlabored Yes 06/01/25 15:56 PUTTYING AND CALKING SUPERVISOR.TNES respirations Mental status nausea No 06/01/25 15:56 PUTTYING AND CALKING SUPERVISOR.TNES Vomiting No 06/01/25 15:56 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 Postop Eval I: Fluid Summary Crystalloid volume administer 300 06/01/25 15:56 PUTTYING AND CALKING SUPERVISOR.TNES (ml) Colloids volume administered ( ml) Blood Product volume administered (ml) Total IV fluid infused 300 06/01/25 15:56 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 Postop Eval I: Summary Notes Anesthesia Complication No 06/01/25 15:56 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 Complication Comment: Post-operative progress note Anesthesia: Postop Eval II Evaluation Mental status: Awake and Calm Pain Level: 1 nausea: No Vomiting: No Complications Anesthesia Complication: No 06/01/252010 <Electronically signed by Perez Weeks MD> Date _ Perez Weeks MD Cosigner Signature: Date CC: ~ Signed [facility] Work Phone: 1(308) 586-747208-05-2025 Radiology Diagnostic study note [facility] Imaging Services [address] [place] [address] ERCP Biliary/Pancreas MR#: [id number] Acct: [id number] Name: TELMA TINEO Rep #: [id number] : 1940 F 84 From: Fernie Mejia MD PCP: Dr. Henok Martinez MD Status: ADM I N Study:ERCP Biliary/Pancreas Date of Exam: 06/01/25 Exam# [id number] Ordering Dr: Dylan Brown DO EXAM: ERCP BILIARY/PANCREAS; INTRAOPERATIVE FLUOROSCOPY CLINICAL HISTORY: Abdominal pain COMPARISON: ERCP 01/12/2025. Abdominal CT 01/09/2025. TECHNIQUE: 9 intraoperative fluoroscopy images are submitted for review. FINDINGS: Patient is status post ERCP, which demonstrates dilatation of the common bile duct and proximal intrahepatic biliary tree, with no filling defects appreciated to suggest choledocholithiasis. A biliary stent is deployed within the CBD and presumably extending into the duodenum. Total fluoroscopy time 81.3 seconds. Total radiation dose 13.98 mGy. RAD/ERCP Biliary/Pancreas IMPRESSION: Intraoperative fluoroscopy for ERCP, as above. Reading Location: [id number] CC: Dr. Henok Martinez MD; Mohit Brown DO ~ Program Engagement Director: Signed [facility]08-05-2025 Consult note [facility] Medical Records Department [address] [place] [address] Anesthesia Postop Eval II 06/01/252010 MR#: [id number] Acct: [id number] Name: TELMA TINEO Rep #:[id number] : 1940 84 From: Perez Magaña PCP: Dr. Henok Martinez MD Status:ADM I N Y Race: H [place] [facility] [place] [place] Anesthesia Postop Eval I Sum Postop Eval Completion status Anesthesia document: Postop Eval 1 completed: Yes Anesthesia Postop Eval I Summary Anesthesia Postop Eval I Summary: Anesthesia Postop Eval I: Assessment Summary Airway patent Yes 06/01/25 15:56 PUTTYING AND CALKING SUPERVISOR.TNES Spontaneous unlabored Yes 06/01/25 15:56 PUTTYING AND CALKING SUPERVISOR.TNES respirations Mental status nausea No 06/01/25 15:56 PUTTYING AND CALKING SUPERVISOR.TNES Vomiting No 06/01/25 15:56 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 Postop Eval I: Fluid Summary Crystalloid volume administer 300 06/01/25 15:56 PUTTYING AND CALKING SUPERVISOR.TNES (ml) Colloids volume administered ( ml) Blood Product volume administered (ml) Total IV fluid infused 300 06/01/25 15:56 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 Postop Eval I: Summary Notes Anesthesia Complication No 06/01/25 15:56 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 Complication Comment: Post-operative progress note Anesthesia: Postop Eval II Evaluation Mental status: Awake and Calm Pain Level: 1 nausea: No Vomiting: No Complications Anesthesia Complication: No 06/01/252010 > Date _ Perez Lui Signature: Date CC: ~ Signed [facility]08-05-2025 Consult note Author Jr Kamara [facility] Note Date/Time June 01, 2025 3:5 7pm [facility] Medical Records Department [address] [place] [address] Anesthesia Postop Eval I 06/01/25 1556 MR#: [id number] Acct: [id number] Name: TELMA TINEO Rep #:[id number] : 1940 84 From: Jr RODAS PCP: Dr. Henok Martinez MD Status:ADM I N Y Race: H Location: [place] [id number] Anesthesia: Postop Eval I Current Vital Signs Temperature: 97.3 F Pulse Rate: 71 Blood Pressure: 155/78 Respiratory Rate: 16 Pulse Ox: 97 Assessment Airway patent: Yes Spontaneous unlabored respirations: Yes nausea: No Vomiting: No Anesthesia Complication: No Fluid Hydration Crystalloid volume administer (ml): 300 Total IV fluid infused: 300 Progress Note Anesthesia document: Postop Eval 1 completed: Yes 06/01/257 <Electronically signed by Jr Kamara CRNA> Date _ Jr Macdonaldigner Signature: Date CC: ~ Signed [facility] Work Phone: [phone]) 836-906508-05-2025 Consult note Author Perez Weeks [facility] Note Date/Time June 01, 2025 3:1 9pm [facility] Medical Records Department [address] [place] [address] Pre-Anesthesia Evaluation 06/01/25 1513 MR#: [id number] Acct: [id number] Name: TELMA TINEO Rep #:[id number] : 1940 84 From: Perez Magaña PCP: Dr. Henok Martinez MD Status:ADM I N Y Race: H [place] [facility] [place] [place] ASA Classification* ASA Classification ASA Classification: 3 Assessment & Plan Anesthesia* Anesthesia Assessment Anesthesia [...] risk assessments. Anesthesia Type Anesthesia Type: General and MAC History Source History Obtained from:: Patient and Chart Anesthesia Focused Assessment* Temperature: 97.9 F Pulse Rate: 99 Blood Pressure: 167/57 Respiratory Rate: 18 Pulse Ox: 99 Oxygen Delivery Method: Room Air Airway Assessment Mouth opens: >3 cm Mallampati Score: II Teeth Condition: Dentures and Missing Neck Range of motion (ROM): Limited ROM Labs Anesthesia Preop lab: CBC WBC 6.3 K/mm3 (4.4-11.0) 06/01/25 05:12 06/01/25 RBC 3.64 M/mm3 (4.2-5.4) L 06/01/25 05:12 06/01/25 Hgb 10.0 g/dL (12.0-15.0) L 06/01/25 05:12 5 Hct 31.0 % (37-47) L 06/01/25 05:12 06/01/25 Plt Count 180 K/mm3 (150-450) 06/01/25 05:12 06/01/25 CHEMISTRY Potassium 3.1 mmol/L (3.3-5.1) L 06/01/25 05:12 06/01/25 Sodium 139 mmol/L (133-145) 06/01/25 05:12 06/01/25 Magnesium 1.8 mg/dL (1.5-2.2) 05/31/25 08:03 05/31/25 Phosphorus 1.9 mg/dL (2.7-4.5) L 05/31/25 08:03 05/31/25 BUN 5 mg/dL (4-19) 06/01/25 05:12 06/01/25 Creatinine 0.63 mg/dL (0.70-1.20) L 06/01/25 05:12 Glucose 171 mg/dL (70-99) H 06/01/25 05:12 06/01/25 POC Glucose 417 mg/dL (74-106) H 01/14/25 21:16 01/14/25 TSH 2.180 uIU/mL (0.300-4.200) 01/10/25 05:19 12/26 04/21 COAG PT 12.8 SECONDS (11.7-14.9) 01/09/25 19:21 Pre-Assessment Diagnosis/Proposed Procedure Planned Operative Procedure(s): ERCP Anesthesia History Anesthesia History - die baker: Anesthesia History - die baker Hx Hospitalization Any Problems With Anesthesia No 06/01/25 05:30 Cholinesterase deficiency No 06/01/25 05:30 You/Your Family Experience No 06/01/25 05:30 fever (hyperthermia) with Relationship Recent Exposure to Contagious No 06/01/25 05:30 Disease Does patient have nerve No 06/01/25 05:30 stimulator Patient instructed to have No 06/01/25 05:30 device shut off --Does patient have Pacemaker or ICD? When Was Last Pacemaker Check QUESTION #4 FULL TEXT: You/Your Family Experience fever (hyperthermia) with Anesthesia Last Oral Intake Last Oral intake: Last Oral Intake NPO since Meds taken in AM with sips of water? Meds patient instructed to take am of surgery PONV PONV - die baker: PONV - die baker Female HX of Motion Sickness HX of N/V After Surgery Non-Smoker Duration of Surgery greater than 60 minutes Number of Risk Factors PONV Score Height & Weight Height & Weight: Anesthesia: Height & Weight Height 5 ft 05/31/25 04:44 Weight: 67.2 kg 06/01/25 05:30 Body Mass Index (BMI) 29.0 06/01/25 05:30 Respiratory Assessment Respiratory Assessment - die baker: Respiratory Tract Infection Hx - die baker Hx Respiratory Tract Infection No 06/01/25 05:30 STOP Sleep Apnea STOP Sleep Apnea - die baker: STOP Sleep Apnea - die baker Hx Hypertension Yes 05/31/25 04:45 Hx Sleep Apnea No 05/31/25 04:45 CPAP BIPAP Do you snore loudly (louder Yes 05/31/25 04:45 than talking or can be heard Do you often feel tired/ Yes 05/31/25 04:45 fatigued/ sleepy during daytime? Has anyone observed you stop No 05/31/25 04:45 breathing during sleep? STOP Results Positive 05/31/25 04:45 QUESTION #5 FULL TEXT : Do you snore loudly (louder than talking or can be heard through closed doors)? Tobacco Use History Tobacco Use History - die baker: Tobacco Use History - die baker Tobacco Use Smoking Status Former smoker 05/31/25 04:45 Hx Tobacco Use No 05/31/25 04:45 Years Smoking Packs Smoked per Day Smoking Cessation Date was No - quit smoking greater 05/31/25 04:45 within the last 15 years than 15 years ago Hx Smoking Cessation Date 10/28/77 05/31/25 04:45 Hx Smoking Cessation No 05/31/25 04:45 Counseling Hematologic Medial History Hematologic Hx - die baker: Hematologic Medical Hx - cigar brander Hx of Blood Transfusion Yes 05/31/25 04:45 Hx of Transfusion in last 3 No 05/31/25 04:45 Months Date of Last Transfusion (if within last 3 months) Ever experience any problems No 05/31/25 04:45 with transfusion(s)? Specify any problems Hx of Preganancy in last 3 No 05/31/25 04:45 Months Nurse Filling Out Transfusion DREMAYACK 05/31/25 04:45 & Questions: Date: 05/31/25 05/31/25 04:45 Time: 04:46 05/31/25 04:45 Patient unable to answer at this time (ie. 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 Hx Now No 06/01/25 05:30 Gestational Age (in weeks): EDC: Hx Hx Para Hx Section SAB No 06/01/25 05:30 Active Medications Active Medications: Current Medications Generic Name Dose Route Start Last Admin Trade Name Freq PRN Reason Stop Dose Admin Albuterol Sulfate 2.5 mg 05/31/25 04:40 Albuterol 2.5 Mg/3 Ml Vial.Neb. INHALATION Q2H PRN PRN SOB &/OR WHEEZING Enoxaparin Sodium 40 mg 05/31/25 10:00 06/01/25 08:38 Enoxaparin 40 Mg/0.4 Ml Syringe SC Not Given DAILY ALFREDO Glucagon 1 mg 05/31/25 04:40 Glucagon 1 Mg/Ml Syringe IM X1 PRN HYPOGLYCEMIA Protocol Hydralazine HCl 5 mg 05/31/25 04:40 Hydralazine 20 Mg/Ml Vial IV Q8H PRN PRN SBP GREATER THAN 160 Protocol Pantoprazole Sodium 40 mg/ 100 mls @ 330 mls/hr 05/31/25 04:06 05/31/25 21:28 Sodium Chloride IV Infused 2200 ALFREDO Infusion Levofloxacin 750 mg in 150 mls @ 100 mls/hr 06/01/25 22:00 Levaquin Iv IV Q48@2200 ALFREDO Metronidazole 500 mg in 100 mls @ 100 mls/hr 05/31/25 06:00 06/01/25 14:30 Flagyl IV 0 mls/hr Q8 ALFREDO Infusion Dextrose 250 mls @ 0 mls/hr 05/31/25 04:40 Dextrose 10%-Water IV .Q0M PRN HYPOGLYCEMIA Protocol As Directed Sodium Chloride 250 mls @ 15 mls/hr 06/01/25 09:14 06/01/25 09:23 IV 15 mls/hr .[id number] PRN Administration Saline Flush Sodium Chloride 250 mls @ 15 mls/hr 06/01/25 09:14 IV .[id number] PRN Additional IVPB Infusion Lactated Ringer's 1,000 mls @ 15 mls/hr 06/01/25 15:00 06/01/25 15:00 IV 15 mls/hr .Q48H ALFREDO Administration Insulin Human Lispro 0 unit 05/31/25 06:00 06/01/25 11:49 Insulin Lispro 100 Unit/Ml Insuln.Pen SC Not Given Q6 [facility] Protocol Ketorolac Tromethamine 15 mg 05/31/25 04:40 Ketorolac 15 Mg/Ml Vial IV 06/05/25 04:41 Q8H PRN PRN Pain 1-5/10 or Fever Morphine Sulfate 2 mg 05/31/25 04:40 Morphine 2 Mg/Ml Syringe IV Q4H PRN PRN Pain Score 6-10 Ondansetron HCl 4 mg 05/31/25 04:40 Ondansetron 4 Mg/2 Ml Vial IV Q8H PRN PRN NAUSEA/VOMITING Potassium Chloride 20 meq 06/01/25 17:00 Potassium Chloride Oral Tablet 20 Meq PO BIDCM [facility] Sodium Chloride 10 - 40 ml 05/31/25 04:39 06/01/25 11:52 0.9% Saline Lock 10 Ml Syringe IV 10 ml UD PRN Administration SALINE FLUSH Sodium Chloride 10 - 40 ml 06/01/25 09:14 0.9% Saline Lock 10 Ml Syringe IV UD PRN SALINE FLUSH PFSH Medical History Type 2 diabetes mellitus with hyperglycemia Transaminitis Hyperbilirubinemia Pancreatic mass History of uterine cancer Overweight (BMI 25.0-29.9) Jaundice Elevated lipase Mass of head of [...] 20 mg tablet 20 mg PO QHS hld 03/07/23 Un known History losartan 100 mg tablet 100 mg PO DAILY bp 03/07/23 Unknown History metoprolol tartrate 50 mg tablet 50 mg PO BID heart Unknown History apixaban 5 mg tablet 5 mg PO BID blood thinner #1 80 tabs 04/28/24 Unknown Rx amlodipine 10 mg tablet 10 mg PO DAILY bp #90 tabs 0 11/10/24 Unknown Rx Allergy/AdvReac Type Severity Reaction Status Date / Time Penicillins Allergy Severe Anaphylaxis Verified 05/30/25 21:31 tetracycline Allergy Severe anaphylaxis Verified 05/30/25 21:31 tramadol (From Ultra) AdvReac Severe syncope Verified 05/30/25 21:31 Family [...] and no additional complaints, except as documented. 06/01/25 4367 <Electronically signed by Perez Weeks MD> Date _ Perez Weeks MD Cosigner Signature: Date CC: ~ Signed [facility] Work Phone: [phone]) 168-279208-05-2025 Procedure note [facility] Medical Records Department [address] [place] [address] ERCP Report MR#: [id number] Acct: [id number] Name: TELMA TINEO Rep #:[id number] : 1940 84 From: Mohit Brown DO PCP: Dr. Henok Martinez MD Status:ADM I N Patient Name: Telma Tineo Procedure Date: 06/01/2025 3:54 PM Date of : 1940 Age: 84 Procedure: ERCP Indications: Suspected ascending cholangitis, Jaundice, Elevated liver enzymes, Malignant tumor of the head of pancreas Providers: Mohit Brown DO Medicines: Monitored Anesthesia Care Patient Profile: This is an 84 year old female. Refer to note in patient chart for documentation of history and physical. Patient has symptoms. Complications: No immediate complications. Procedure: Pre-Anesthesia Assessment: - Prior to the [...] patient has taken no anticoagulant or antiplatelet agents. ASA Grade Assessment: II - A patient [...] the mouth, and advanced to the duodenum and used to inject contrast into the bile duct and ventral pancreatic duct. The ERCP was accomplished without difficulty. The patient tolerated the procedure well. Scope In: 4:35:10 PM Scope Out: 5:07:44 PM Total Procedure Duration Time 0 hours 32 minutes 34 seconds Findings: The cable television line technician film was normal. The esophagus was successfully intubated under direct vision. The scope was advanced to a normal major papilla in the descending duodenum without detailed examination of the pharynx, larynx and associated structures, and upper GI tract. The upper GI tract was grossly normal. A long 0.025 inch Jagwire was passed into the biliary tree. The short-nosed traction sphincterotome was passed over the guidewire and the bile duct was then deeply cannulated. Contrast was injected. I personally interpreted the bile duct images. There was brisk flow of contrast through the ducts. Image quality was adequate. Contrast extended to the entire biliary tree. The lower third of the main bile duct and middle third of the main bile duct contained a single segmental stenosis 7 mm in length. The entire biliary tree except for the cystic duct and gallbladder and entire biliary tree were severely dilated, with a mass causing an obstruction. The largest diameter was 20 mm. A 5 mm biliary sphincterotomy was made with a braided traction (standard) sphincterotome using ERBE electrocautery. There was no post-sphincterotomy bleeding. The biliary tree was swept with a 12 mm balloon starting at the upper third of the main bile duct, middle third of the main bile duct, lower third of the main duct, bifurcation, left intrahepatic duct(s), left main hepatic duct, right intrahepatic duct(s) and right main hepatic duct. Pus was swept from the duct. Sludge was swept from the duct. All stones were removed. Debris was swept from the duct. One stent was removed from the biliary tree using a rat-toothed forceps and snare and sent for cytology. The stent was found to be occluded via the water column test. One 10 mm by 6 cm covered metal stent was placed 5 cm into the common bile duct. Bile flowed through the stent. The stent was in good position. 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 The stricture was malignant appearing. - The entire biliary tree was severely dilated, with a mass causing an obstruction. - Choledocholithiasis was found. Complete removal was accomplished by biliary sphincterotomy and balloon extraction. - A biliary sphincterotomy was performed. - The biliary tree was swept and pus and debris were found. - One stent was removed from the biliary tree. - One covered metal stent was placed into the common bile duct. Procedure Code(s): --- Professional --- 65325, Endoscopic retrograde cholangiopancreatography (ERCP); with removal and exchange of stent(s), biliary or pancreatic duct, including pre- and post-dilation and guide wire passage, when performed, including sphincterotomy, when performed, each stent exchanged 23636, Endoscopic retrograde cholangiopancreatography (ERCP); with removal of calculi/debris from biliary/pancreatic duct(s) 79147, 26, Endoscopic catheterization of the biliary ductal system, radiological supervision and interpretation CPT copyright 2021 [employer]. All rights reserved. The codes documented in this report are preliminary and upon excavator operator review may be revised to meet current compliance requirements. Mohit Brown DO 06/01/2025 5:16:19 PM This report has been signed electronically. Number of Addenda: 0 Note Initiated On: 06/01/2025 3:54 PM 06/01/25 1716 Date _ Mohit Brown DO Cosigner Signature: Date (if indicated) CC: Dr. Henok Martinez MD; Mohit Brown DO ~ Date Dictated: 06/01/25 1554 Date Transcribed: Program Engagement Director: RF Signed [facility]08-05-2025 Consult note [facility] Medical Records Department [address] [place] [address] Anesthesia Postop Eval I 06/01/25 1556 MR#: [id number] Acct: [id number] Name: NICKOLASTELMA BRIGHT Rep #:[id number] : 1940 84 From: Jr RODAS PCP: Dr. Henok Martinez MD Status:ADM I N Y Race: H Location: [place] [address] Anesthesia: Postop Eval I Current Vital Signs Temperature: 97.3 F Pulse Rate: 71 Blood Pressure: 155/78 Respiratory Rate: 16 Pulse Ox: 97 Assessment Airway patent: Yes Spontaneous unlabored respirations: Yes nausea: No Vomiting: No Anesthesia Complication: No Fluid Hydration Crystalloid volume administer (ml): 300 Total IV fluid infused: 300 Progress Note Anesthesia document: Postop Eval 1 completed: Yes 06/01/25 1557 PUTTYING AND CALKING SUPERVISOR> Date _ Jr Kamara PUTTYING AND CALKING SUPERVISOR Cosigner Signature: Date CC: ~ Signed [facility]08-05-2025 Consult note [facility] Medical Records Department [address] [place] [id number] Pre-Anesthesia Evaluation 06/01/25 1513 MR#: [id number] Acct: [id number] Name: TELMA TINEO Rep #:[id number] : 1940 84 From: Perez Magaña PCP: Dr. Henok Martinez MD Status:ADM I N Y Race: H Location: [place] [address] ASA Classification* ASA Classification ASA Classification: 3 Assessment & Plan Anesthesia* Anesthesia Assessment Anesthesia [...] risk assessments. Anesthesia Type Anesthesia Type: General and MAC History Source History Obtained from:: Patient and Chart Anesthesia Focused Assessment* Temperature: 97.9 F Pulse Rate: 99 Blood Pressure: 167/57 Respiratory Rate: 18 Pulse Ox: 99 Oxygen Delivery Method: Room Air Airway Assessment Mouth opens: >3 cm Mallampati Score: II Teeth Condition: Dentures and Missing Neck Range of motion (ROM): Limited ROM Labs Anesthesia Preop lab: CBC WBC 6.3 K/mm3 (4.4-11.0) 06/01/25 05:12 06/01/25 RBC 3.64 M/mm3 (4.2-5.4) L 06/01/25 05:12 06/01/25 Hgb 10.0 g/dL (12.0-15.0) L 06/01/25 05:12 5 Hct 31.0 % (37-47) L 06/01/25 05:12 06/01/25 Plt Count 180 K/mm3 (150-450) 06/01/25 05:12 06/01/25 CHEMISTRY Potassium 3.1 mmol/L (3.3-5.1) L 06/01/25 05:12 06/01/25 Sodium 139 mmol/L (133-145) 06/01/25 05:12 06/01/25 Magnesium 1.8 mg/dL (1.5-2.2) 05/31/25 08:03 05/31/25 Phosphorus 1.9 mg/dL (2.7-4.5) L 05/31/25 08:03 05/31/25 BUN 5 mg/dL (4-19) 06/01/25 05:12 06/01/25 Creatinine 0.63 mg/dL (0.70-1.20) L 06/01/25 05:12 Glucose 171 mg/dL (70-99) H 06/01/25 05:12 06/01/25 POC Glucose 417 mg/dL (74-106) H 01/14/25 21:16 01/14/25 TSH 2.180 uIU/mL (0.300-4.200) 01/10/25 05:19 12/26 04/21 COAG PT 12.8 SECONDS (11.7-14.9) 01/09/25 19:21 Pre-Assessment Diagnosis/Proposed Procedure Planned Operative Procedure(s): ERCP Anesthesia History Anesthesia History - die baker: Anesthesia History - die baker Hx Hospitalization Any Problems With Anesthesia No 06/01/25 05:30 Cholinesterase deficiency No 06/01/25 05:30 You/Your Family Experience No 06/01/25 05:30 fever (hyperthermia) with Relationship Recent Exposure to Contagious No 06/01/25 05:30 Disease Does patient have nerve No 06/01/25 05:30 stimulator Patient instructed to have No 06/01/25 05:30 device shut off --Does patient have Pacemaker or ICD? When Was Last Pacemaker Check QUESTION #4 FULL TEXT: You/Your Family Experience fever (hyperthermia) with Anesthesia Last Oral Intake Last Oral intake: Last Oral Intake NPO since Meds taken in AM with sips of water? Meds patient instructed to take am of surgery PONV PONV - die baker: PONV - die baker Female HX of Motion Sickness HX of N/V After Surgery Non-Smoker Duration of Surgery greater than 60 minutes Number of Risk Factors PONV Score Height & Weight Height & Weight: Anesthesia: Height & Weight Height 5 ft 05/31/25 04:44 Weight: 67.2 kg 06/01/25 05:30 Body Mass Index (BMI) 29.0 06/01/25 05:30 Respiratory Assessment Respiratory Assessment - die baker: Respiratory Tract Infection Hx - die baker Hx Respiratory Tract Infection No 06/01/25 05:30 STOP Sleep Apnea STOP Sleep Apnea - die baker: STOP Sleep Apnea - die baker Hx Hypertension Yes 05/31/25 04:45 Hx Sleep Apnea No 05/31/25 04:45 CPAP BIPAP Do you snore loudly (louder Yes 05/31/25 04:45 than talking or can be heard Do you often feel tired/ Yes 05/31/25 04:45 fatigued/ sleepy during daytime? Has anyone observed you stop No 05/31/25 04:45 breathing during sleep? STOP Results Positive 05/31/25 04:45 QUESTION #5 FULL TEXT : Do you snore loudly (louder than talking or can be heard through closeddoors)? Tobacco Use History Tobacco Use History - die baker: Tobacco Use History - die baker Tobacco Use Smoking Status Former smoker 05/31/25 04:45 Hx Tobacco Use No 05/31/25 04:45 Years Smoking Packs Smoked per Day Smoking Cessation Date was No - quit smoking greater 05/31/25 04:45 within the last 15 years than 15 years ago Hx Smoking Cessation Date 10/28/77 05/31/25 04:45 Hx Smoking Cessation No 05/31/25 04:45 Counseling Hematologic Medial History Hematologic Hx - die baker: Hematologic Medical Hx - cigar brander Hx of Blood Transfusion Yes 05/31/25 04:45 Hx of Transfusion in last 3 No 05/31/25 04:45 Months Date of Last Transfusion (if within last 3 months) Ever experience any problems No 05/31/25 04:45 with transfusion(s)? Specify any problems Hx of Preganancy in last 3 No 05/31/25 04:45 Months Nurse Filling Out Transfusion DREDICK 05/31/25 04:45 & Questions: Date: 05/31/25 05/31/25 04:45 Time: 04:46 05/31/25 04:45 Patient unable to answer at this time (ie. 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 Hx Now No 06/01/25 05:30 Gestational Age (in weeks): EDC: Hx Hx Para Hx Section SAB No 06/01/25 05:30 Active Medications Active Medications: Current Medications Generic Name Dose Route Start Last Admin Trade Name Freq PRN Reason Stop Dose Admin Albuterol Sulfate 2.5 mg 05/31/25 04:40 Albuterol 2.5 Mg/3 Ml Vial.Neb. INHALATION Q2H PRN PRN SOB &/OR WHEEZING Enoxaparin Sodium 40 mg 05/31/25 10:00 06/01/25 08:38 Enoxaparin 40 Mg/0.4 Ml Syringe SC Not Given DAILY ALFREDO Glucagon 1 mg 05/31/25 04:40 Glucagon 1 Mg/Ml Syringe IM X1 PRN HYPOGLYCEMIA Protocol Hydralazine HCl 5 mg 05/31/25 04:40 Hydralazine 20 Mg/Ml Vial IV Q8H PRN PRN SBP GREATER THAN 160 Protocol Pantoprazole Sodium 40 mg/ 100 mls @ 330 mls/hr 05/31/25 04:06 05/31/25 21:28 Sodium Chloride IV Infused 2200 ALFREDO Infusion Levofloxacin 750 mg in 150 mls @ 100 mls/hr 06/01/25 22:00 Levaquin Iv IV Q48@2200 ALFREDO Metronidazole 500 mg in 100 mls @ 100 mls/hr 05/31/25 06:00 06/01/25 14:30 Flagyl IV 0 mls/hr Q8 ALFREDO Infusion Dextrose 250 mls @ 0 mls/hr 05/31/25 04:40 Dextrose 10%-Water IV .Q0M PRN HYPOGLYCEMIA Protocol As Directed Sodium Chloride 250 mls @ 15 mls/hr 06/01/25 09:14 06/01/25 09:23 IV 15 mls/hr .[id number] PRN Administration Saline Flush Sodium Chloride 250 mls @ 15 mls/hr 06/01/25 09:14 IV .[id number] PRN Additional IVPB Infusion Lactated Ringer's 1,000 mls @ 15 mls/hr 06/01/25 15:00 06/01/25 15:00 IV 15 mls/hr .Q48H ALFREDO Administration Insulin Human Lispro 0 unit 05/31/25 06:00 06/01/25 11:49 Insulin Lispro 100 Unit/Ml Insuln.Pen SC Not Given Q6 [facility] Protocol Ketorolac Tromethamine 15 mg 05/31/25 04:40 Ketorolac 15 Mg/Ml Vial IV 06/05/25 04:41 Q8H PRN PRN Pain 1-5/10 or Fever Morphine Sulfate 2 mg 05/31/25 04:40 Morphine 2 Mg/Ml Syringe IV Q4H PRN PRN Pain Score 6-10 Ondansetron HCl 4 mg 05/31/25 04:40 Ondansetron 4 Mg/2 Ml Vial IV Q8H PRN PRN NAUSEA/VOMITING Potassium Chloride 20 meq 06/01/25 17:00 Potassium Chloride Oral Tablet 20 Meq PO BIDCM ALFREDO Sodium Chloride 10 - 40 ml 05/31/25 04:39 06/01/25 11:52 0.9% Saline Lock 10 Ml Syringe IV 10 ml UD PRN Administration SALINE FLUSH Sodium Chloride 10 - 40 ml 06/01/25 09:14 0.9% Saline Lock 10 Ml Syringe IV UD PRN SALINE FLUSH PFSH Medical History Type 2 diabetes mellitus with hyperglycemia Transaminitis Hyperbilirubinemia Pancreatic mass History of uterine cancer Overweight (BMI 25.0-29.9) Jaundice Elevated lipase Mass of head of [...] 20 mg tablet 20 mg PO QHS hld 03/07/23 Un known History losartan 100 mg tablet 100 mg PO DAILY bp 03/07/23 Unknown History metoprolol tartrate 50 mg tablet 50 mg PO BID heart Unknown History apixaban 5 mg tablet 5 mg PO BID blood thinner #1 80 tabs 04/28/24 Unknown Rx amlodipine 10 mg tablet 10 mg PO DAILY bp #90 tabs 0 11/10/24 Unknown Rx Allergy/AdvReac Type Severity Reaction Status [...] and no additional complaints, except as documented. 06/01/25 1519 MD> Date _ Perez Weeks MD Cosigner Signature: Date CC: ~ Signed [facility]08-05-2025 Progress note Author Oniel Santana [facility] Note Date/Time June 01, 2025 8:4 9am [facility] Medical Records Department [address] [place] [address] Progress Note - Hospitalist 06/01/25 0838 MR#: [id number] Acct: [id number] Name: TELMA TINEO Rep #:[id number] : 1940 84 From: Oniel Santana MD PCP: Dr. Henok Martinez MD Status:ADM I N Location: [place] [address] Reason for Visit Chief Complaint: Fever and Abdominal Pain. Subjective Subjective Patient is an 84-year-old lady with recent diagnosis of pancreatic carcinoma whopresented to the emergency department with fever and abdominal pain. An assessment of acute cholangitis made started on broad-spectrum antibiotic therapy admitted to regular nursing floor for further management Objective Data Objective Data Vital Signs: Vital Signs Temp Pulse Resp BP Pulse Ox O2 Del Method 97.0 F L 99 18 157/69 H 99 Room Air 06/01/25 08:17 06/01/25 08:17 06/01/25 08:17 06/01/25 08:17 06/01/25 08:17 06/01/25 08:17 Oxygen Delivery Method Room Air Weight: 67.2 kg Body Mass Index (BMI) 29.0 Intake & Output: Intake and Output for Last 24 Hours 05/30/25 05/31/25 06/01/25 23:59 23:59 23:59 Intake Total 1000 / 1000 2272.92 / 2272.92 100 / 100 Balance 1000 / 1000 2272.92 / 2272.92 100 / 100 Lab / Micro Data 06/01/25 05:12 06/01/25 05:12 Labs: Laboratory Results - last 24 hr 05/31/25 08:03: Phosphorus 1.9 L, Magnesium 1.8 06/01/25 05:12: WBC 6.3, RBC 3.64 L, Hgb 10.0 L, Hct 31.0 L, MCV 85.2, MCH 27.5,MCHC 32.3, RDW Std Deviation 47.8 H, RDW Coeff of Colton 15.3 H, Plt Count 180, MPV12.7 H, Immature Gran % (Auto) 0.200, Neut % (Auto) 71.6 H, Lymph % (Auto) 10.8 L, [place] % (Auto) 15.3 H, Eos % (Auto) 1.6, Baso % (Auto) 0.5, Absolute Neuts (auto) 4.5, Absolute Lymphs (auto) 0.68 L, Nucleated RBC % 0, Sodium 139, Potassium 3.1 L, Chloride 108, Carbon Dioxide 20.4 L, Anion Gap 12, BUN 5, Creatinine 0.63 L, Estim Creat Clear Calc 44.77 L, Est GFR (MDRD) Non-Af 88, BUN/Creatinine Ratio 8.3 L, Glucose 171 H, Hemoglobin A1c 9.6 H, Calcium 8.8, Total Bilirubin 4.68 H, AST 49 H, ALT 95 H, Alkaline Phosphatase 339 H, Total Protein 6.2, Albumin 3.3 L, Globulin 2.9, Albumin/Globulin Ratio 1.2 Micro: Microbiology 05/30/25 22:15 Mucosa - Nose SARS-CoV-2, Influenza & RSV (PCR) - Final Physical Exam Narrative GENERAL: cooperative HEENT: Atraumatic; normocephalic EYES; Anicteric, Normal Conjunctiva NECK; supple, normal thyroid, RESPIRATORY: Diminished to auscultation CARDIOVASCULAR: Regular S1 S2, GI: soft, normoactive bowel sounds, : No Renal angle tenderness; EXTREMITIES: No edema, no clubbing, MUSCULOSKELETAL: no muscle wasting NEURO: Awake; no lateralizing signs. SKIN: No Rash PSYCH; Flat affect Assessment & Plan Assessment/Plan (1) Cholangiolitis: (2) Hyperbilirubinemia: (3) Transaminitis: (4) Pancreatic cancer: QUALIFIERS: Pancreatic malignancy location: unspecified QualifiedCode(s): C25.9 - Malignant 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, unspecified (5) Hyponatremia: (6) Hypokalemia: (7) Type 2 diabetes mellitus with hyperglycemia: QUALIFIERS: Diabetes mellitus nursing home insulin use: without nursing home use Qualified Code(s): E11.65 - Type 2 diabetes mellitus with hyperglycemia PLAN: Plan Patient is an 84-year-old lady with recent diagnosis of pancreatic carcinoma whopresented to the emergency department with fever and abdominal pain. An assessment of acute cholangitis made started on broad-spectrum antibiotic therapy admitted to regular nursing floor for further management 1. Suspected acute cholangitis ? In a patient with underlying pancreatic CA with previous stent placement. Patient was placed on broad-spectrum antibiotic therapy consult placed to GI patient seen by Dr. Brown plan is for patient to undergo ERCP with stent exchange 2. Pancreatic CA ? Patient underwent pancreatic duct placement at [facility], started on chemobut stopped 2 weeks because of side effects. GI currently recommending palliative care consultation 3. 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 Sodium level on admission was 131, 139 asof 06/01/2025. Will continue with subsequent monitoring of sodium levels 4. Hypokalemia ? Patient potassium levels on admission was 3.1 still remains 3.1 additional potassium replacement given 5. Diabetes mellitus type II Placed on long acting insulin, Accu-Cheks a.c. and at bedtime and covered with sliding scale insulin 6. Chronic A-fib ? Rate controlled on metoprolol and systemic anticoagulation with apixaban. Apixaban held on admission 7. GERD ? On PPI 8. Anemia ? Secondary to chronic disorder/anemia of malignancy monitoring H&H and transfuse if patient becomes symptomatic or hemoglobin falls below 7 9. Dyslipidemia ?Patient is on statin therapy, continued at home dose 10. History of previous TIA/CVA ? Resultant mild cognitive impairment 11. Mild intermittent asthma ? Currently not in exacerbation aerosol treatment as needed 12. DVT prophylaxis ? Subcu Lovenox for Time spent in the patient's overall evaluation,decision-making process, review of diagnostic data, adjustment of management, discussion with other providers, nursing nursing and ancillary staff involved in patient's care documentation, 52 Minutes Charges/Coding Visit Charges Inpatient E&M: 45135 Subs Hosp L3 06/01/25 0849 <Electronically signed by Oniel Santana MD> Cosigner Signature (if applicable): CC: ~ Signed [facility] Work Phone: 1(927) 164-409808-05-2025 Progress note [facility] Medical Records Department [address] [place] [address] Progress Note - Hospitalist 06/01/25 0838 MR#: [id number] Acct: [id number] Name: TELMA TINEO Rep #:[id number] : 1940 84 From: Oniel Santana MD PCP: Dr. Henok Martinez MD Status:ADM I N Location: [place] [address] Reason for Visit Chief Complaint: Fever and Abdominal Pain. Subjective Subjective Patient is an 84-year-old lady with recent diagnosis of pancreatic carcinoma whopresented to the emergency department with fever and abdominal pain. An assessment of acute cholangitis made started onbroad-spectrum antibiotic therapy admitted to regular nursing floor for further management Objective Data Objective Data Vital Signs: Vital Signs Temp Pulse Resp BP Pulse Ox O2 Del Method 97.0 F L 99 18 157/69 H 99 Room Air 06/01/25 08:17 06/01/25 08:17 06/01/25 08:17 06/01/25 08:17 06/01/25 08:17 06/01/25 08:17 Oxygen Delivery Method Room Air Weight: 67.2 kg Body Mass Index (BMI) 29.0 Intake & Output: Intake and Output for Last 24 Hours 05/30/25 05/31/25 06/01/25 23:59 23:59 23:59 Intake Total 1000 / 1000 2272.92 / 2272.92 100 / 100 Balance 1000 / 1000 2272.92 / 2272.92 100 / 100 Lab / Micro Data 06/01/25 05:12 06/01/25 05:12 Labs: Laboratory Results - last 24 hr 05/31/25 08:03: Phosphorus 1.9 L, Magnesium 1.8 06/01/25 05:12: WBC 6.3, RBC 3.64 L, Hgb 10.0 L, Hct 31.0 L, MCV 85.2, MCH 27.5,MCHC 32.3, RDW Std Deviation 47.8 H, RDW Coeff of Colton 15.3 H, Plt Count 180, MPV12.7 H, Immature Gran % (Auto) 0.200, Neut % (Auto) 71.6 H, Lymph % (Auto) 10.8 L, [place] % (Auto) 15.3 H, Eos % (Auto) 1.6, Baso % (Auto) 0.5, Absolute Neuts (auto) 4.5, Absolute Lymphs (auto) 0.68 L, Nucleated RBC % 0, Sodium 139, Potassium 3.1 L, Chloride 108, Carbon Dioxide 20.4 L, Anion Gap 12, BUN 5, Creatinine 0.63 L, Estim Creat Clear Calc 44.77 L, Est GFR (MDRD) Non-Af 88, BUN/Creatinine Ratio 8.3 L, Glucose 171 H, Hemoglobin A1c 9.6 H, Calcium 8.8, Total Bilirubin 4.68 H, AST 49 H, ALT 95 H, Alkaline Phosphatase 339 H, Total Protein 6.2, Albumin 3.3 L, Globulin 2.9, Albumin/Globulin Ratio 1.2 Micro: Microbiology 05/30/25 22:15 Mucosa - Nose SARS-CoV-2, Influenza & RSV (PCR) - Final Physical Exam Narrative GENERAL: cooperative HEENT: Atraumatic; normocephalic EYES; Anicteric, Normal Conjunctiva NECK; supple, normal thyroid, RESPIRATORY: Diminished to auscultation CARDIOVASCULAR: Regular S1 S2, GI: soft, normoactive bowel sounds, : No Renal angle tenderness; EXTREMITIES: No edema, no clubbing, MUSCULOSKELETAL: no muscle wasting NEURO: Awake; no lateralizing signs. SKIN: No Rash PSYCH; Flat affect Assessment & Plan Assessment/Plan (1) Cholangiolitis: (2) Hyperbilirubinemia: (3) Transaminitis: (4) Pancreatic cancer: QUALIFIERS: Pancreatic malignancy location: unspecified QualifiedCode(s): C25.9 - Malignant 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, unspecified (5) Hyponatremia: (6) Hypokalemia: (7) Type 2 diabetes mellitus with hyperglycemia: QUALIFIERS: Diabetes mellitus nursing home insulin use: without nursing home use Qualified Code(s): E11.65 - Type 2 diabetes mellitus with hyperglycemia PLAN: Plan Patient is an 84-year-old lady with recent diagnosis of pancreatic carcinoma whopresented to the emergency department with fever and abdominal pain. An assessment of acute cholangitis made started onbroad-spectrum antibiotic therapy admitted to regular nursing floor for further management 1. Suspected acute cholangitis ? In a patient with underlying pancreatic CA with previous stent placement. Patient was placed on broad-spectrum antibiotic therapy consult placed to GI patient seen by Dr. Brown plan is for patientto undergo ERCP with stent exchange 2. Pancreatic CA ? Patient underwent pancreatic duct placement at [facility], started on chemobut stopped 2 weeksbecause of side effects. GI currently recommending palliative care consultation 3. 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 Sodium level on admission was 131, 139 asof 06/01/2025. Will continue with subsequent monitoring of sodium levels 4. Hypokalemia ? Patient potassium levels on admission was 3.1 still remains 3.1 additional potassium replacement given 5. Diabetes mellitus type II Placed on long acting insulin, Accu-Cheks a.c. and at bedtime and covered with sliding scale insulin 6. Chronic A-fib ? Rate controlled on metoprolol and systemic anticoagulation with apixaban. Apixaban held on admission 7. GERD ? On PPI 8. Anemia ? Secondary to chronic disorder/anemia of malignancy monitoring H&H and transfuse if patient becomes symptomatic or hemoglobin falls below 7 9. Dyslipidemia ?Patient is on statin therapy, continued at home dose 10. History of previous TIA/CVA ? Resultant mild cognitive impairment 11. Mild intermittent asthma ? Currently not in exacerbation aerosol treatment as needed 12. DVT prophylaxis ? Subcu Lovenox for Time spent in the patient's overall evaluation,decision-making process, review of diagnostic data, adjustment of management, discussion with other providers, nursing nursing and ancillary staff involved in patient's care documentation, 52 Minutes Charges/Coding Visit Charges Inpatient E&M: 49439 Subs Hosp L3 06/01/25 0849 Cosigner Signature (if applicable): CC: ~ Signed [facility]08-05-2025 Consult note Author Mohit Brown [facility] Note Date/Time June 01, 2025 6:4 2am [facility] Medical Records Department [address] [place] [address] Consultation - GI 05/31/25 1904 MR#: [id number] Acct: [id number] Name: TELMA TINEO Rep #:[id number] : 1940 84 From: Mohit Brown DO PCP: Dr. Henok Martinez MD Status:ADM I N Location: [place] [address] HPI Consult Data Date of Consult: 05/31/25 HPI Narrative HPI Narrative: TELMA TINEO, is a 84 F who presents with fatigue, weakness, darkening urine andjaundice. She was on previous admission where she presented with painless jaundice and a bilirubin of 9. - Previous CT of the abdomen pelvis in January 2025 - evidence of dilated hepatic and pancreatic ducts with an area of hypoattenuation in the head of the pancreasconcerning for Pancreatic Carcinoma with additional evidence of [...] 224 units/L suggestive of possible early pancreatitis She was then arranged for transfer to [facility] with patient confirmed to have pancreatic cancer; with subsequent pancreatic duct placed and patient started on chemotherapy - but then stopped her treatment ~2 months ago because of side effects who presents. Yesterday in the ER she was noted to have severe Hyperbilirubinemia of 4.82 mg/dL along with evidence of Transaminitis; with AST 135 units/L, ALT 195 units/L and alkaline phosphatase 166 units/L suspected to be due to Acute Cholangitis in the setting of known Pancreatic Cancer. - Current CT scan of the abdomen and pelvis 05/31/2025 - revealing unremarkable liver and gallbladder with stable ~5 mm liver hypodensity with biliary stent in good position and CBD is dilated up to ~2 cm in cross-section with pancreatic atrophy and history of pancreatic head mass which is not definitely seen, possibly indicating response to treatment but stable periportal adenopathy that is nonspecific. [facility] Medical History Type 2 diabetes mellitus with hyperglycemia Transaminitis Hyperbilirubinemia Pancreatic mass History of uterine cancer Overweight (BMI 25.0-29.9) Jaundice Elevated lipase Mass of head of [...] 20 mg tablet 20 mg PO QHS hld 03/07/23 Un known History losartan 100 mg tablet 100 mg PO DAILY bp 03/07/23 Unknown History metoprolol tartrate 50 mg tablet 50 mg PO BID heart Unknown History apixaban 5 mg tablet 5 mg PO BID blood thinner #1 80 tabs 04/28/24 Unknown Rx amlodipine 10 mg tablet 10 mg PO DAILY bp #90 tabs 0 11/10/24 Unknown Rx Allergy/AdvReac Type Severity Reaction Status [...] rectal bleeding, tenesmus, vomiting or weight changes Physical Exam Const alert, oriented x3, no apparent distress and healthy appearing General Appearance: cooperative GI normal to inspection, nondistended, normoactive bowel sounds, soft to palpation,non-tender and non-distended Percussion: normal to percussion Rectal Exam: deferred Lab / Micro Data 05/30/25 21:55 05/30/25 21:55 Labs: Laboratory Results - last 24 hr 05/30/25 21:55: WBC 13.9 H, RBC 4.13 L, Hgb 11.1 L, Hct 33.8 L, MCV 81.8, MCH 26.9 L, MCHC 32.8, RDW Std Deviation 44.9 H, RDW Coeff of Colton 14.9 H, Plt Count 185, MPV 12.7 H, Immature Gran % (Auto) 0.500, Neut % (Auto) 84.7 H, Lymph % (Auto) 3.3 L, [place] % (Auto) 11.4 H, Eos % (Auto) 0.0, Baso % (Auto) 0.1, Absolute Neuts (auto) 11.7 H, Absolute Lymphs (auto) 0.46 L, Nucleated RBC % 0, Differential Comment SCANNED, Sodium 131 L, Potassium 3.1 L, Chloride 97 L, Carbon Dioxide 20.0 L, Anion Gap 14, BUN 9, Creatinine 0.74, Estim Creat Clear Calc 45.50 L, Est GFR (MDRD) Non-Af 80, BUN/Creatinine Ratio 12.0, Glucose 257 H, Lactic Acid 1.6, Calcium 9.1, Total Bilirubin 4.82 H, AST 135 H, ALT 195 H, Alkaline Phosphatase 466 H, Total Protein 7.3, Albumin 3.9, Globulin 3.5, Albumin/Globulin Ratio 1.1, Lipase 49 05/30/25 22:38: Urine Color Yellow, Urine Clarity Clear, Urine pH 7.0, Ur Specific [place] 1.005, Urine Protein 30 H, Urine Glucose (UA) 1000 H, Urine Ketones Negative, Urine Occult Blood 25 H, Urine Nitrite Negative, Urine Bilirubin Negative, Urine Urobilinogen Normal, Ur Leukocyte Esterase Negative, Urine RBC 0 SEEN, Urine WBC 0 SEEN, Ur Squamous Epith Cells 5-10 SEEN, Urine Bacteria 2+, Urine Mucus 0 SEEN 05/31/25 08:03: Phosphorus 1.9 L, Magnesium 1.8 Micro: Microbiology 05/30/25 22:15 Mucosa - Nose SARS-CoV-2, Influenza & RSV (PCR) - Final Imaging Radiology Impression Chest/Abdomen/Pelvis CT 05/30/25 23:36 IMPRESSION: Left axillary adenopathy, nonspecific. Possibly inflammatory in etiology. No acute chest injury is noted. Treated pancreatic head tumor is not well seen and may be decreased in size indicating response to treatment. Biliary stent in good position. No abdominopelvic injury noted. Reading Location: [place] [address] Assessment & Plan Assessment/Plan (1) Transaminitis: (2) Leukocytosis: QUALIFIERS: Leukocytosis type: unspecified Qualified Code(s): D72.829 - Elevated white blood cell count, unspecified (3) Pancreatic cancer: QUALIFIERS: Pancreatic malignancy location: unspecified QualifiedCode(s): C25.9 - Malignant 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, unspecified (4) Cholangiolitis: PLAN: 84-year-old female with a history of cholangitis and pancreatic cancer. She reports experiencing increased fatigue, citing difficulty with her activities ofdaily living and a diminished appetite, leading to some weight loss. She complains of persistent itching, which is more noticeable at night and affectingher sleep. The patient expresses significant nausea and occasional vomiting, especially after attempting to eat larger meals. She reports experiencing abdominal pain that seems to radiate to her back and is worsened after eating.?She also notes that her stools have become leave specialist in color?and she is experiencing diarrhea. She verbalizes a strong desire to focus on comfort and maintaining her quality of life at this time, given her inability to tolerate chemotherapy. She is experiencing significant symptoms of her illness, including fatigue, decreased appetite, weight loss, itching, nausea, vomiting, abdominal pain, and changes in bowel habits. These symptoms are impacting her quality of life. She has a history of chemotherapy intolerance, necessitating a shift toward palliative and supportive care. * Palliative Care:?Recommend to discuss with the patient and family the benefits of early integration of palliative care to address symptom management and improve overall quality of life. * Symptom Management: * Pain management, nausea vomiting management, itching management, fatigue management, appetite weight loss management. * Biliary Obstruction:?Patient will undergo ERCP tomorrow with stent exchange for a fully covered metal stent and possibly pancreatic stent. Charges/Coding Visit Charges Inpatient E&M: 79672 Init Hosp L3 06/01/25 0642 <Electronically signed by Mohit Friend DO> Cosigner Signature (if applicable): CC: Dr. Henok Martinez MD~ Signed [facility] Work Phone: [phone] 514-111108-05-2025 Consult note [facility] Medical Records Department [address] [place] [address] Consultation - GI 05/31/25 1904 MR#: [id number] Acct: [id number] Name: TELMA TINEO Rep #:[id number] : 1940 84 From: [facility] Friend DO PCP: Dr. Henok Martinez MD Status:ADM I N [place] [facility] [id number] HPI Consult Data Date of Consult: 05/31/25 HPI Narrative HPI Narrative: TELMA TINEO, is a 84 F who presents with fatigue, weakness, darkening urine andjaundice. She was on previous admission where she presented with painless jaundice and a bilirubin of 9. - Previous CT of the abdomen pelvis in January 2025 - evidence of dilated hepatic and pancreatic ducts with an area of hypoattenuation in the head of the pancreasconcerning for Pancreatic Carcinoma with additional evidence of mild hepatocellular disease with a markedly distended/hydropic gallbladder with corresponding laboratory evidence of Severe Hyperbilirubinemia; with total bilirubin of 9.78 mg/dL and direct bilirubin of 7.64 mg/dL in addition to Transaminitis; with AST of 308 units/L, ALT of390 units/L and alkaline phosphatase of 416 units/L plus elevated lipase of 224 units/L suggestive of possible early pancreatitis She was then arranged for transfer to [facility] with patient confirmed to have pancreatic cancer; with subsequent pancreatic duct placed and patient started on chemotherapy - but then stopped her treatment ~2 months ago because of side effects who presents. Yesterday in the ER she was noted to have severe Hyperbilirubinemia of 4.82 mg/dL along with evidence of Transaminitis; with AST 135 units/L, ALT 195 units/L and alkaline phosphatase 166 units/L suspected to be due to Acute Cholangitis in the setting of known Pancreatic Cancer. - Current CT scan of the abdomen and pelvis 05/31/2025 - revealing unremarkable liver and gallbladderwith stable ~5 mm liver hypodensity with biliary stent in good position and CBD is dilated up to ~2cm in cross-section with pancreatic atrophy and history of pancreatic head mass which is not definitely seen, possibly indicating response to treatment but stable periportal adenopathy that is nonspecific. [facility] Medical History Type 2 diabetes mellitus with hyperglycemia Transaminitis Hyperbilirubinemia Pancreatic mass History of uterine cancer Overweight (BMI 25.0-29.9) Jaundice Elevated lipase Mass of head of [...] 20 mg tablet 20 mg PO QHS hld 03/07/23 Un known History losartan 100 mg tablet 100 mg PO DAILY bp 03/07/23 Unknown History metoprolol tartrate 50 mg tablet 50 mg PO BID heart Unknown History apixaban 5 mg tablet 5 mg PO BID blood thinner #1 80 tabs 04/28/24 Unknown Rx amlodipine 10 mg tablet 10 mg PO DAILY bp #90 tabs 0 11/10/24 Unknown Rx Allergy/AdvReac Type Severity Reaction Status [...] rectal bleeding, tenesmus, vomiting or weight changes Physical Exam Const alert, oriented x3, no apparent distress and healthy appearing General Appearance: cooperative GI normal to inspection, nondistended, normoactive bowel sounds, soft to palpation,non-tender and non-distended Percussion: normal to percussion Rectal Exam: deferred Lab / Micro Data 05/30/25 21:55 05/30/25 21:55 Labs: Laboratory Results - last 24 hr 05/30/25 21:55: WBC 13.9 H, RBC 4.13 L, Hgb 11.1 L, Hct 33.8 L, MCV 81.8, MCH 26.9 L, MCHC 32.8, RDW Std Deviation 44.9 H, RDW Coeff of [place] 14.9 H, Plt Count 185, MPV 12.7 H, Immature Gran % (Auto) 0.500, Neut % (Auto) 84.7 H, Lymph % (Auto) 3.3 L, [place] % (Auto) 11.4 H, Eos % (Auto) 0.0, Baso % (Auto) 0.1, Absolute Neuts (auto) 11.7 H, Absolute Lymphs (auto) 0.46 L, Nucleated RBC % 0, Differential Comment SCANNED, Sodium 131 L, Potassium 3.1 L, Chloride 97 L, Carbon Dioxide 20.0 L, Anion Gap 14, BUN 9, Creatinine 0.74, Estim Creat Clear Calc 45.50 L, Est GFR (MDRD) Non-Af 80, BUN/Creatinine Ratio 12.0, Glucose 257 H, Lactic Acid 1.6, Calcium 9.1, Total Bilirubin 4.82 H, AST 135 H, ALT 195 H, Alkaline Phosphatase 466 H, Total Protein 7.3, Albumin 3.9, Globulin 3.5, Albumin/Globulin Ratio 1.1, Lipase 49 05/30/25 22:38: Urine Color Yellow, Urine Clarity Clear, Urine pH 7.0, Ur Specific [place] 1.005, Urine Protein 30 H, Urine Glucose (UA) 1000 H, Urine Ketones Negative, Urine Occult Blood 25 H, UrineNitrite Negative, Urine Bilirubin Negative, Urine Urobilinogen Normal, Ur Leukocyte Esterase Negative, Urine RBC 0 SEEN, Urine WBC 0 SEEN, Ur Squamous Epith Cells 5-10 SEEN, Urine Bacteria 2+, Urine Mucus 0 SEEN 05/31/25 08:03: Phosphorus 1.9 L, Magnesium 1.8 Micro: Microbiology 05/30/25 22:15 Mucosa - Nose SARS-CoV-2, Influenza & RSV (PCR) - Final Imaging Radiology Impression Chest/Abdomen/Pelvis CT 05/30/25 23:36 IMPRESSION: Left axillary adenopathy, nonspecific. Possibly inflammatory in etiology. No acute chest injury is noted. Treated pancreatic head tumor is not well seen and may be decreased in size indicating response to treatment. Biliary stent in good position. No abdominopelvic injury noted. [facility] Assessment & Plan Assessment/Plan (1) Transaminitis: (2) Leukocytosis: QUALIFIERS: Leukocytosis type: unspecified Qualified Code(s): D72.829 - Elevated white blood cell count, unspecified (3) Pancreatic cancer: QUALIFIERS: Pancreatic malignancy location: unspecified QualifiedCode(s): C25.9 - Malignant 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, unspecified (4) Cholangiolitis: PLAN: 84-year-old female with a history of cholangitis and pancreatic cancer. She reports experiencing increased fatigue, citing difficulty with her activities ofdaily living and a diminished appetite, leading to some weight loss. She complains of persistent itching, which is more noticeable at night and affectingher sleep. The patient expresses significant nausea and occasional vomiting, especially after attempting to eat larger meals. She reports experiencing abdominal pain that seems to radiate toher back and is worsened after eating.?She also notes that her stools have become leave specialist in color?and she is experiencing diarrhea. She verbalizes a strong desire to focus on comfort and maintainingher quality of life at this time, given her inability to tolerate chemotherapy. She is experiencing significant symptoms of her illness, including fatigue, decreased appetite, weight loss, itching, nausea, vomiting, abdominal pain, and changes in bowel habits. These symptoms areimpacting her quality of life. She has a history of chemotherapy intolerance, necessitating a shifttoward palliative and supportive care. * Palliative Care:?Recommend to discuss with the patient and family the benefits of early integration of palliative care to address symptom management and improve overall quality of life. * Symptom Management: * Pain management, nausea vomiting management, itching management, fatigue management, appetite weight loss management. * Biliary Obstruction:?Patient will undergo ERCP tomorrow with stent exchange for a fully covered metal stent and possibly pancreatic stent. Charges/Coding Visit Charges Inpatient E&M: 65760 Init Hosp L3 06/01/25 0642 Cosigner Signature (if applicable): CC: Dr. Henok Martinez MD~ Signed [facility]08-04-2025 Telephone encounter Note* Telephone Encounter - Shabnam Shah LPN - 05/31/2025 2:27 PM EDT Patient has no upcoming appt scheduled. She is currently admitted to [facility]. [facility] 03/30/25 [facility]08-04-2025 Miscellaneous Notes* Telephone Encounter - Shabnam Shah LPN - 05/31/2025 2:27 PM EDT Patient has no upcoming appt scheduled. She is currently admitted to [facility]. [facility]30[facility] History and physical note Author Oniel Hernandez [facility] Note Date/Time May 31, 2025 6:2 9am [facility] Medical Records Department [address] [place] [address] H&P Exam - Hospitalist 05/31/25 0327 MR#: [id number] Acct: [id number] Name: TELMA TINEO Rep #:[id number] : 1940 84 From: Oniel Rojas DO PCP: Dr. Henok Martinez MD Status:ADM I N Location: MS3 [id number] [facility] Date of Admission: 05/31/25 Date of Service: 05/31/25 Chief Complaint: Fever and Abdominal Pain. HPI Narrative TELMA TINEO, is a 84 F with a past medical history of essential hypertension; on losartan, metoprolol BID and amlodipine, hyperlipidemia; on atorvastatin, overweight; with BMI of 29.9 this admission, remote history of tobacco abuse (quit 50+ years ago), DM-2; on 10U of 70/30 insulin daily, chronic atrial fibrillation; on apixaban, history of TIA/CVA x 2, mild cognitive impairment, history of Lundberg's palsy, history of Right atrial mass, history of asthma, history of appendectomy, history of uterine cancer, history of anoplasty, history of bladder surgery, history of hemorrhoidectomy, history of hysterectomy, history of blood transfusion, GERD; on pantoprazole, OA; with chronic neck pain and previous admission here from January 10, 2025 to January 11, [address] evidence of dilated hepatic and pancreatic [...] She was then arranged for transfer to [facility] with patient confirmed to have pancreatic cancer; with subsequent pancreatic duct placed and patient started on chemotherapy - but thenstopped her treatment ~2 months ago because of side effects who presents to [facility] ER complaining of fever and abdominal pain. Ms. Tineo reports her symptoms began approximately 1 day prior to admission with the abrupt-onset abdominal pain with fever and nausea. She states her urine is darker than normal and the abdominal discomfort is mild and generalized. She states she just returned from [place] ~8 days ago and was feeling well apparently using that visit the sake about her family members. In the ER she was noted to have severe Hyperbilirubinemia of 4.82 mg/dL along with evidence of Transaminitis; with AST 135 units/L, ALT 195 units/L and alkaline phosphatase 166 units/L suspected to be due to Acute Cholangitis in the setting of known Pancreatic Cancer with Leukocytosis of 13.9 K present on admission complicated by additional laboratory evidence of mild Hyponatremia of 131 mmol/Land mild Hypokalemia of 3.1 mmol/L with CT scan of the abdomen and pelvis revealing unremarkable liver and gallbladder with stable ~5 mm liver hypodensitywith biliary stent in good position and CBD is dilated up to ~2 cm in cross-section with pancreatic atrophy and history of pancreatic head mass which is notdefinitely seen, possibly indicating response to treatment but stable periportaladenopathy that is nonspecific. The ER physician spoke directly with patient and multiple family members and they are agreeable to conservative treatment butdo not want aggressive care or to transfer to a tertiary care center with the understanding that patient has cancer for which she is already abandoned treatment due to adverse side effects from chemotherapy. Therefore, palliative care will be consulted to see this patient this admission with help appreciated in advance. She was then admitted to the general medical floor for ongoing carefor state that is expected to extend beyond 2 midnights. [facility] Medical History (Updated 05/31/25 @ 04:[address] Oniel Golden, DO) Type 2 diabetes mellitus with hyperglycemia Transaminitis Hyperbilirubinemia Pancreatic mass History of uterine cancer Overweight (BMI 25.0-29.9) Jaundice Elevated lipase Mass of head of [...] 20 mg tablet 20 mg PO QHS hld 03/07/23 Un known History losartan 100 mg tablet 100 mg PO DAILY bp 03/07/23 Unknown History metoprolol tartrate 50 mg tablet 50 mg PO BID heart Unknown History apixaban 5 mg tablet 5 mg PO BID blood thinner #1 80 tabs 07/02/24 Unknown Rx amlodipine 10 mg tablet 10 mg PO DAILY bp #90 tabs 0 11/10/24 Unknown Rx Allergy/AdvReac Type Severity Reaction Status [...] ROS Narrative Review of Systems: Constitutional: Patient admits to fever but denies chills or sweats. Eyes: Patient denies changes in vision or discharge from eyes. ENT: Patient denies runny nose, sore throat or ear pain. Resp: Patient denies shortness of breath or cough. CV: Patient denies chest pain, palpitations, heart racing or lower extremity edema. GI: Patient admits to nausea with mild abdominal pain but she denies diarrhea, constipation or vomiting. : Patient admits to darker urine but she denies dysuria, hematuria or urinary frequency. MSK: Patient admits to myalgias but she denies arthralgias. Skin: Patient admits to jaundice but she denies rash, abscess or wounds. Psych: Patient denies symptoms of uncontrolled depression or anxiety. Neuro: Patient denies headache, paresthesias or focal neurologic deficits. Allergy: Patient denies lip swelling, tongue swelling or urticaria. Hematology: Patient admits to easy bleeding and easy bruisability on apixaban. Endocrinology: Patient denies polyuria, polydipsia, polyphagia or heat/cold intolerance. 14 point ROS otherwise negative except for positives noted above in HPI. Vital Signs Vital Signs Vital Signs: 05/30/25 21:27 05/30/25 22:36 05/30/25 [...] 78 Pulse Ox 100 Oxygen Delivery Method Weight Weight: 153 lb Body Mass Index (BMI) 29.9 Physical Exam Const alert, oriented x3, no apparent distress and average body habitus Constitutional Narrative: Patient appears chronically ill. General Appearance: cooperative HEENT normocephalic, head/scalp atraumatic and hearing grossly normal bilaterally HEENT Narrative: Mucous membranes dry. Eyes PERRL and EOMs intact bilaterally Eyes Narrative: Patient has mild scleral icterus. Neck no lymphadenopathy, supple and no JVD Resp normal respiratory effort, no retractions, no use of accessory muscles and clearto auscultation bilaterally Cardio regular rate and regular rhythm GI normal to inspection, nondistended, normoactive bowel sounds, soft to palpation,non-tender and non-distended Extremity normal to inspection, full ROM and no clubbing, cyanosis or edema Skin Skin Narrative: Patient has no evidence of rash, abscess or wounds. Neuro oriented x3, CN's II-XII intact bilaterally, moves all extremities and no focal motor deficits Sensorium / Orientation: awake, alert, oriented to person, oriented to place andoriented to time Speech: speech normal Psych affect normal Results Medical Records Data Attestation: I reviewed the patient's medical records Lab / Micro Data Attestation: I reviewed the patient's lab results. 05/30/25 21:55 05/30/25 21:55 Labs: Laboratory Results - last 24 hr 05/30/25 21:55: WBC 13.9 H, RBC 4.13 L, Hgb 11.1 L, Hct 33.8 L, MCV 81.8, MCH 26.9 L, MCHC 32.8, RDW Std Deviation 44.9 H, RDW Coeff of [place] 14.9 H, Plt Count 185, MPV 12.7 H, Immature Gran % (Auto) 0.500, Neut % (Auto) 84.7 H, Lymph % (Auto) 3.3 L, [place] % (Auto) 11.4 H, Eos % (Auto) 0.0, Baso % (Auto) 0.1, Absolute Neuts (auto) 11.7 H, Absolute Lymphs (auto) 0.46 L, Nucleated RBC % 0, Differential Comment SCANNED, Sodium 131 L, Potassium 3.1 L, Chloride 97 L, Carbon Dioxide 20.0 L, Anion Gap 14, BUN 9, Creatinine 0.74, Estim Creat Clear Calc 45.50 L, Est GFR (MDRD) Non-Af 80, BUN/Creatinine Ratio 12.0, Glucose 257 H, Lactic Acid 1.6, Calcium 9.1, Total Bilirubin 4.82 H, AST 135 H, ALT 195 H, Alkaline Phosphatase 466 H, Total Protein 7.3, Albumin 3.9, Globulin 3.5, Albumin/Globulin Ratio 1.1, Lipase 49 05/30/25 22:38: Urine Color Yellow, Urine Clarity Clear, Urine pH 7.0, Ur Specific [place] 1.005, Urine Protein 30 H, Urine Glucose (UA) 1000 H, Urine Ketones Negative, Urine Occult Blood 25 H, Urine Nitrite Negative, Urine Bilirubin Negative, Urine Urobilinogen Normal, Ur Leukocyte Esterase Negative, Urine RBC 0 SEEN, Urine WBC 0 SEEN, Ur Squamous Epith Cells 5-10 SEEN, Urine Bacteria 2+, Urine Mucus 0 SEEN Micro: Microbiology 05/30/25 22:15 Mucosa - Nose SARS-CoV-2, Influenza & RSV (PCR) - Final Imaging Radiology Impression Chest/Abdomen/Pelvis CT 05/30/25 23:36 IMPRESSION: Left axillary adenopathy, nonspecific. Possibly inflammatory in etiology. No acute chest injury is noted. Treated pancreatic head tumor is not well seen and may be decreased in size indicating response to treatment. Biliary stent in good position. No abdominopelvic injury noted. Reading Location: [place] [address] Assessment & Plan Assessment/Plan (1) Cholangiolitis: (2) Hyperbilirubinemia: (3) Transaminitis: (4) Leukocytosis: QUALIFIERS: Leukocytosis type: unspecified Qualified Code(s): D72.829 - Elevated white blood cell count, unspecified (5) Pancreatic cancer: QUALIFIERS: Pancreatic malignancy location: unspecified QualifiedCode(s): C25.9 - Malignant 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, unspecified (6) Hyponatremia: (7) Hypokalemia: (8) Type 2 diabetes mellitus with hyperglycemia: QUALIFIERS: Diabetes mellitus manager terminal insulin use: without manager terminal use Qualified Code(s): E11.65 - Type 2 diabetes mellitus with hyperglycemia PLAN: Plan 1. Hyperbilirubinemia of 4.82 mg/dL along with evidence of Transaminitis; with AST 135 units/L, ALT 195 units/L and alkaline phosphatase 166 units/L suspected to be due to Acute Cholangitis in the setting of known Pancreatic Cancer with Leukocytosis of 13.9 K present on admission with CT scan of the abdomen and pelvis revealing unremarkable liver and gallbladder with stable ~5 mm liver hypodensity with biliary stent in good position and CBD is dilated up to ~2 cm in cross-section with pancreatic atrophy and history of pancreatic head mass which is not definitely seen, possibly indicating response to treatment but stable periportal adenopathy that is nonspecific - Admit to general medical floor. Keep strict NPO. Continue empiric IV levofloxacin and IV metronidazole begun in ER in light of PCN allergy (anaphylaxis) and await culture and sensitivity data. Give pantoprazole 40 mg IV daily for GI prophylaxis. Give prochlorperazine IV as needed for nausea vomiting. Give ketorolac IV as needed for [id number] (level 1-5/10) pain or fever. Give morphine IV as needed for severe (level 6-10/10) pain. Finally, we will consult palliative care see this patient on rounds in the a.m. with the patient already making herself DNR- CCA; without intubation CODE STATUS in the ER with help appreciated in advance. 2. Previous admission here from January 10, 2025 to January 11, [address] evidence of dilated hepatic and pancreatic ducts with an area of hypoattenuationin the head of the pancreas concerning for Pancreatic Carcinoma with additional evidence of mild hepatocellular disease with a markedly distended/hydropic gallbladder with corresponding laboratory evidence of Severe Hyperbilirubinemia;with total bilirubin of 9.78 mg/dL and direct bilirubin of 7.64 mg/dL in addition to Transaminitis; with AST of 308 units/L, ALT of 390 units/L and alkaline phosphatase of 416 units/L plus elevated lipase of 224 units/L suggestive of possible early pancreatitis with Hyperglycemia of 418 mg/dL all present on admission. She was then arranged for transfer to [facility] with patient confirmed to have pancreatic cancer; with subsequent pancreatic duct placed and patient started on chemotherapy - but then stopped her treatment ~2 months ago because of side effects complicating #1 - Noted. 3. Hyponatremia of 131 mmol/L present on admission - Give NS IV fluid and recheck level in a.m. to ensure improvement. 4. Hypokalemia of 3.1 mmol/L present on admission - Add KCl to NS and recheck level in a.m. to confirm repletion. 5. DM-2; on 10U of 70/30 insulin daily with hyperglycemia of 257 mg/dL present on admission - Cover with lowest intensity SSI with FSBS q. 6 hours while NPO. 6. Chronic Atrial Fibrillation; on apixaban - Hold apixaban with patient NPO. We will not give full-dose LMWH due to pending palliative care consultation and desire for conservative medical treatment. 7. Essential hypertension; on losartan, metoprolol BID and amlodipine - Hold oral antihypertensives in light of patient being NPO. Give hydralazine IV as needed for systolic blood pressure greater than 160 mmHg. 8. Hyperlipidemia; on atorvastatin - Stop statin. 9. Overweight; with BMI of 29.9 this admission - Noted with weight loss unlikely given patient's condition. 10. Remote history of tobacco abuse (quit 50+ years ago) - Noted. 11. 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 13. History of Right atrial mass - Noted. 14. History of asthma - Stable and without evidence of acute flare at this time. Give nebulizes prn. 15. History of appendectomy - Noted. 16. History of uterine cancer - Noted. 17. History of anoplasty - Stable. 18. History of bladder surgery - Noted. 19. History of hemorrhoidectomy - Noted. 20. History of hysterectomy - Noted for the sake of completeness. 21. History of blood transfusion - Noted. 22. GERD; on pantoprazole - Patient started on IV PPI for #1. 23. OA; with chronic neck pain - We will follow pain regimen and scales outlined in #1. 24. DVT prophylaxis - Give enoxaparin 40 mg sq daily plus SCD's. Total time: Approximately (but not less than) 75 minutes. Charges/Coding Visit Charges Inpatient E&M: 28530 Init Hosp L3 05/31/25 0438 <Electronically signed by Oniel Golden DO> Cosigner Signature (if applicable): CC: Dr. Oniel Golden DO; Dr. Henok Martinez MD~ Signed ADDENDUM by Dr. Oniel Golden DO on 05/31/25 at 0629 Addendum I was called by third floor RN and informed patient has now changed her mind andwants to be full code. Apparently other family members that were not present inthe ER have changed the patient's mind. There is poor medical insight into her complex medical condition given the poor prognosis of her diagnosis, particularly after stopping her chemotherapy. She has now been made a full codeas per patient/family request. Third floor RN updated with plan. 05/31/25 06<Electronically signed by Oniel Golden DO> Cosigner Signature (if applicable): cc: Dr. Oniel Golden DO; Dr. Henok Martinez MD ~* Signed [facility] Work Phone: 1(435) 445-970108-04-2025 History and physical note [facility] Medical Records Department [address] [place] [address] H&P Exam - Hospitalist 05/31/25 0327 MR#: [id number] Acct: [id number] Name: TELMA TINEO Rep #:[id number] : 1940 84 From: Oniel Rojas DO PCP: Dr. Henok Martinez MD Status:ADM I N [place] [facility] [place] Date of Admission: 05/31/25 Date of Service: 05/31/25 Chief Complaint: Fever and Abdominal Pain. HPI Narrative TELMA TINEO, is a 84 F with a past medical history of essential hypertension; on losartan, metoprolol BID and amlodipine, hyperlipidemia; on atorvastatin, overweight; with BMI of 29.9 this admission, remote history of tobacco abuse (quit 50+ years ago), DM-2; on 10U of 70/30 insulin daily, chronicatrial fibrillation; on apixaban, history of TIA/CVA x 2, mild cognitive impairment, history of Lundberg's palsy, history of Right atrial mass, history of asthma, history of appendectomy, history of uterine cancer, history of anoplasty, history of bladder surgery, history of hemorrhoidectomy, history of hysterectomy, history of blood transfusion, GERD; on pantoprazole, OA; with chronic neck pain and previous admission here from January 10, 2025 to January 11, [address] evidence of dilated hepatic and pancreatic [...] 416 units/L plus elevated lipase of 224 un its/L suggestive of possible early pancreatitis with Hyperglycemia of 418 mg/dL all present on admission. She was then arranged for transfer to [facility] with patient confirmed to have pancreatic cancer; with subsequent pancreatic duct placed and patient started on chemotherapy - but thenstopped her treatment ~2 months ago because of side effects who presents to [facility] ER complaining of fever and abdominal pain. Ms. Tineo reports her symptoms began approximately 1 day prior to admission with the abrupt-onset abdominal pain with fever and nausea. She states her urine is darker than normal and the abdominal discomfort is mild and generalized. She states she just returned from [place] ~8 days ago and wasfeeling well apparently using that visit the sake about her family members. In the ER she was notedto have severe Hyperbilirubinemia of 4.82 mg/dL along with evidence of Transaminitis; with AST 135 units/L, ALT 195 units/L and alkaline phosphatase 166 units/L suspected to be due to Acute Cholangitis in the setting of known Pancreatic Cancer with Leukocytosis of 13.9 K present on admission complicated by additional laboratory evidence of mild Hyponatremia of 131 mmol/Land mild Hypokalemia of 3.1 mmol/L with CT scan of the abdomen and pelvis revealing unremarkable liver and gallbladder with stable ~5 mm liver hypodensitywith biliary stent in good position and CBD is dilated up to ~2 cm in cross-section with pancreatic atrophy and history of pancreatic head mass which is notdefinitely seen,possibly indicating response to treatment but stable periportaladenopathy that is nonspecific. The ER physician spoke directly with patient and multiple family members and they are agreeable to conservative treatment butdo not want aggressive care or to transfer to a tertiary care center with the understanding that patient has cancer for which she is already abandoned treatment due to adverse side effects from chemotherapy. Therefore, palliative care will be consulted to see this patient this admission with help appreciated in advance. She was then admitted to the general medical floor for ongoing carefor state that is expected to extend beyond 2 midnights. [facility] Medical History (Updated 05/31/25 @ 04:[address] Oniel Golden, ) Type 2 diabetes mellitus with hyperglycemia Transaminitis Hyperbilirubinemia Pancreatic mass History of uterine cancer Overweight (BMI 25.0-29.9) Jaundice Elevated lipase Mass of head of [...] 20 mg tablet 20 mg PO QHS hld 03/07/23 Un known History losartan 100 mg tablet 100 mg PO DAILY bp 03/07/23 Unknown History metoprolol tartrate 50 mg tablet 50 mg PO BID heart Unknown History apixaban 5 mg tablet 5 mg PO BID blood thinner #1 80 tabs 04/28/24 Unknown Rx amlodipine 10 mg tablet 10 mg PO DAILY bp #90 tabs 0 11/10/24 Unknown Rx Allergy/AdvReac Type Severity Reaction Status Date / Time Penicillins Allergy Severe Anaphylaxis Verified 05/30/25 21:31 tetracycline Allergy Severe anaphylaxis Verified 05/30/25 21:31 tramadol (From Ultra) AdvReac Severe syncope Verified 05/30/25 21:31 Family [...] ROS Narrative Review of Systems: Constitutional: Patient admits to fever but denies chills or sweats. Eyes: Patient denies changes in vision or discharge from eyes. ENT: Patient denies runny nose, sore throat or ear pain. Resp: Patient denies shortness of breath or cough. CV: Patient denies chest pain, palpitations, heart racing or lower extremity edema. GI: Patient admits to nausea with mild abdominal pain but she denies diarrhea, constipation or vomiting. : Patient admits to darker urine but she denies dysuria, hematuria or urinary frequency. MSK: Patient admits to myalgias but she denies arthralgias. Skin: Patient admits to jaundice but she denies rash, abscess or wounds. Psych: Patient denies symptoms of uncontrolled depression or anxiety. Neuro: Patient denies headache, paresthesias or focal neurologic deficits. Allergy: Patient denies lip swelling, tongue swelling or urticaria. Hematology: Patient admits to easy bleeding and easy bruisability on apixaban. Endocrinology: Patient denies polyuria, polydipsia, polyphagia or heat/cold intolerance. 14 point ROS otherwise negative except for positives noted above in HPI. Vital Signs Vital Signs Vital Signs: 05/30/25 21:27 05/30/25 22:36 05/30/25 [...] 78 Pulse Ox 100 Oxygen Delivery Method Weight Weight: 153 lb Body Mass Index (BMI) 29.9 Physical Exam Const alert, oriented x3, no apparent distress and average body habitus Constitutional Narrative: Patient appears chronically ill. General Appearance: cooperative HEENT normocephalic, head/scalp atraumatic and hearing grossly normal bilaterally HEENT Narrative: Mucous membranes dry. Eyes PERRL and EOMs intact bilaterally Eyes Narrative: Patient has mild scleral icterus. Neck no lymphadenopathy, supple and no JVD Resp normal respiratory effort, no retractions, no use of accessory muscles and clearto auscultation bilaterally Cardio regular rate and regular rhythm GI normal to inspection, nondistended, normoactive bowel sounds, soft to palpation,non-tender and non-distended Extremity normal to inspection, full ROM and no clubbing, cyanosis or edema Skin Skin Narrative: Patient has no evidence of rash, abscess or wounds. Neuro oriented x3, CN's II-XII intact bilaterally, moves all extremities and no focal motor deficits Sensorium / Orientation: awake, alert, oriented to person, oriented to place andoriented to time Speech: speech normal Psych affect normal Results Medical Records Data Attestation: I reviewed the patient's medical records Lab / Micro Data Attestation: I reviewed the patient's lab results. 05/30/25 21:55 05/30/25 21:55 Labs: Laboratory Results - last 24 hr 05/30/25 21:55: WBC 13.9 H, RBC 4.13 L, Hgb 11.1 L, Hct 33.8 L, MCV 81.8, MCH 26.9 L, MCHC 32.8, RDW Std Deviation 44.9 H, RDW Coeff of [place] 14.9 H, Plt Count 185, MPV 12.7 H, Immature Gran % (Auto) 0.500, Neut % (Auto) 84.7 H, Lymph % (Auto) 3.3 L, [place] % (Auto) 11.4 H, Eos % (Auto) 0.0, Baso % (Auto) 0.1, Absolute Neuts (auto) 11.7 H, Absolute Lymphs (auto) 0.46 L, Nucleated RBC % 0, Differential Comment SCANNED, Sodium 131 L, Potassium 3.1 L, Chloride 97 L, Carbon Dioxide 20.0 L, Anion Gap 14, BUN 9, Creatinine 0.74, Estim Creat Clear Calc 45.50 L, Est GFR (MDRD) Non-Af 80, BUN/Creatinine Ratio 12.0, Glucose 257 H, Lactic Acid 1.6, Calcium 9.1, Total Bilirubin 4.82 H, AST 135 H, ALT 195 H, Alkaline Phosphatase 466 H, Total Protein 7.3, Albumin 3.9, Globulin 3.5, Albumin/Globulin Ratio 1.1, Lipase 49 05/30/25 22:38: Urine Color Yellow, Urine Clarity Clear, Urine pH 7.0, Ur Specific [place] 1.005, Urine Protein 30 H, Urine Glucose (UA) 1000 H, Urine Ketones Negative, Urine Occult Blood 25 H, UrineNitrite Negative, Urine Bilirubin Negative, Urine Urobilinogen Normal, Ur Leukocyte Esterase Negative, Urine RBC 0 SEEN, Urine WBC 0 SEEN, Ur Squamous Epith Cells 5-10 SEEN, Urine Bacteria 2+, Urine Mucus 0 SEEN Micro: Microbiology 05/30/25 22:15 Mucosa - Nose SARS-CoV-2, Influenza & RSV (PCR) - Final Imaging Radiology Impression Chest/Abdomen/Pelvis CT 05/30/25 23:36 IMPRESSION: Left axillary adenopathy, nonspecific. Possibly inflammatory in etiology. No acute chest injury is noted. Treated pancreatic head tumor is not well seen and may be decreased in size indicating response to treatment. Biliary stent in good position. No abdominopelvic injury noted. Reading Location: [place] [address] Assessment & Plan Assessment/Plan (1) Cholangiolitis: (2) Hyperbilirubinemia: (3) Transaminitis: (4) Leukocytosis: QUALIFIERS: Leukocytosis type: unspecified Qualified Code(s): D72.829 - Elevated white blood cell count, unspecified (5) Pancreatic cancer: QUALIFIERS: Pancreatic malignancy location: unspecified QualifiedCode(s): C25.9 - Malignant 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, unspecified (6) Hyponatremia: (7) Hypokalemia: (8) Type 2 diabetes mellitus with hyperglycemia: QUALIFIERS: Diabetes mellitus nursing home insulin use: without nursing home use Qualified Code(s): E11.65 - Type 2 diabetes mellitus with hyperglycemia PLAN: Plan 1. Hyperbilirubinemia of 4.82 mg/dL along with evidence of Transaminitis; with AST 135 units/L, DKC875 units/L and alkaline phosphatase 166 units/L suspected to be due to Acute Cholangitis in the setting of known Pancreatic Cancer with Leukocytosis of 13.9 K present on admission with CT scan of the abdomen and pelvis revealing unremarkable liver and gallbladder with stable ~5 mm liver hypodensity with biliary stent in good position and CBD is dilated up to ~2 cm in cross-section with pancreatic atrophy and history of pancreatic head mass which is not definitely seen, possibly indicating response to treatment but stable periportal adenopathy that is nonspecific - Admit to general medical kilo or. Keep strict NPO. Continue empiric IV levofloxacin and IV metronidazole begun in ER in light of PCN allergy (anaphylaxis) and await culture and sensitivity data. Give pantoprazole 40 mg IV daily for GI prophylaxis. Give prochlorperazine IV as needed for nausea vomiting. Give ketorolac IV as needed for [id number] (level 1-5/10) pain or fever. Give morphine IV as needed for severe (level 6-10/10) pain. Finally, we will consult palliative care see this patient on rounds in the a.m. with the patient already making herself DNR-CCA; without intubation CODE STATUS in the ER with help appreciated in advance. 2. Previous admission here from January 10, 2025 to January 11, [address] evidence of dilated hepatic and pancreatic ducts with an area of hypoattenuationin the head of the pancreas concerning for Pancreatic Carcinoma with additional evidence of mild hepatocellular disease with a markedly distended/hydropic gallbladder with corresponding laboratory evidence of Severe Hyperbilirubinemia;with total bilirubin of 9.78 mg/dL and direct bilirubin of 7.64 mg/dL in addition to Transaminitis; with AST of308 units/L, ALT of 390 units/L and alkaline phosphatase of 416 units/L plus elevated lipase of 224 units/L suggestive of possible early pancreatitis with Hyperglycemia of 418 mg/dL all present on admission. She was then arranged for transfer to [facility] with patient confirmed to havepancreatic cancer; with subsequent pancreatic duct placed and patient started on chemotherapy - flip stopped her treatment ~2 months ago because of side effects complicating #1 - Noted. 3. Hyponatremia of 131 mmol/L present on admission - Give NS IV fluid and recheck level in a.m. to ensure improvement. 4. Hypokalemia of 3.1 mmol/L present on admission - Add KCl to NS and recheck level in a.m. to confirm repletion. 5. DM-2; on 10U of 70/30 insulin daily with hyperglycemia of 257 mg/dL present on admission - Coverwith lowest intensity SSI with FSBS q. 6 hours while NPO. 6. Chronic Atrial Fibrillation; on apixaban - Hold apixaban with patient NPO. We will not give full-dose LMWH due to pending palliative care consultation and desire for conservative medical treatment. 7. Essential hypertension; on losartan, metoprolol BID and amlodipine - Hold oral antihypertensivesin light of patient being NPO. Give hydralazine IV as needed for systolic blood pressure greater than 160 mmHg. 8. Hyperlipidemia; on atorvastatin - Stop statin. 9. Overweight; with BMI of 29.9 this admission - Noted with weight loss unlikely given patient's condition. 10. Remote history of tobacco abuse (quit 50+ years ago) - Noted. 11. 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 13. History of Right atrial mass - Noted. 14. History of asthma - Stable and without evidence of acute flare at this time. Give nebulizes prn. 15. History of appendectomy - Noted. 16. History of uterine cancer - Noted. 17. History of anoplasty - Stable. 18. History of bladder surgery - Noted. 19. History of hemorrhoidectomy - Noted. 20. History of hysterectomy - Noted for the sake of completeness. 21. History of blood transfusion - Noted. 22. GERD; on pantoprazole - Patient started on IV PPI for #1. 23. OA; with chronic neck pain - We will follow pain regimen and scales outlined in #1. 24. DVT prophylaxis - Give enoxaparin 40 mg sq daily plus SCD's. Total time: Approximately (but not less than) 75 minutes. Charges/Coding Visit Charges Inpatient E&M: 51370 Init Hosp L3 05/31/25 0438 Cosigner Signature (if applicable): CC: Dr. Oniel Golden DO; Dr. Henok Martinez MD~ Signed ADDENDUM by Dr. Oniel Golden DO on 05/31/25 at 0629 Addendum I was called by third floor RN and informed patient has now changed her mind andwants to be full code. Apparently other family members that were not present inthe ER have changed the patient's mind. There is poor medical insight into her complex medical condition given the poor prognosis of her diagnosis, particularly after stopping her chemotherapy. She has now been made a full codeas per patient/family request. Third floor RN updated with plan. 05/31/25 0629 Cosigner Signature (if applicable): cc: Dr. Oniel Golden DO; Dr. Henok Martinez MD ~* Signed [facility]08-04-2025 Evaluation note* Diagnosis Onset Date Resolution Status Admit Date Cholangiolitis acute May 3:58am DNR no code (do not resuscitate) acu te May 31, 2025 3:58am Hyperbilirubinemia acute May 31, 2025 3:58am Hypokalemia acute May 31, 2 025 3:58am Hyponatremia acute May 31, 2025 3:58am Leukocytosis acute May 31, 2025 3:58am Pancreatic cancer acute May 31, 2025 3:58am Transaminitis acute May 31, 2025 3:58am Type 2 diabetes mellitus wit h hyperglycemia acute May 31, 2025 3:58am [facility] Work Phone: 1([phone]) 268-504308-04-2025 Evaluation note* Diagnosis Onset Date Resolution Status Admit Date DNR no code (do not resuscitate) acu te May 31, 2025 3:58am Hyperbilirubinemia acute May 31, 2025 3:58am Leukocytosis acute May 31, 2025 3:58am Pancreatic cancer acute May 31, 2025 3:58am Type 2 diabetes mellitus wit h hyperglycemia acute May 31, 2025 3:58am Cholangiolitis resolved May 3:58am Hypokalemia resolved May 31, 2 025 3:58am Hyponatremia resolved May 31, 2025 3:58am Transaminitis resolved May 31, 2025 3:58am [facility] Work Phone: 1(265) 800-953508-04-2025 Evaluation note* Diagnosis Onset Date Resolution Status Admit Date DNR no code (do not resuscitate) acu te May 31, 2025 3:58am Hyperbilirubinemia acute May 31, 2025 3:58am Leukocytosis acute May 31, 2025 3:58am Pancreatic cancer acute May 31, 2025 3:58am Type 2 diabetes mellitus wit h hyperglycemia acute May 31, 2025 3:58am Cholangiolitis resolved May 3:58am Hypokalemia resolved May 31, 2 025 3:58am Hyponatremia resolved May 31, 2025 3:58am Transaminitis resolved May 31, 2025 3:58am Essential hypertension chronic Au kaden 2024 2:08pm Right atrial mass chronic June 15, 2025 2:08pm Atrial fibrillation inactive Augus t 2024 2:08pm [facility] Work Phone: 1([phone]) 668-854608-04-2025 Discharge summary Author Yeyo Valentine [facility] Note Date/Time May 31, 2025 3:4 1am [facility] Medical Records Department [address] [place] [address] Emergency Department Summary 05/30/25 MR#: [id number] Acct: [id number] Name: TELMA TINEO Rep #:[id number] : 1940 84 From: Yeyo Palencia PCP: [...] abdominal discomfort. No chest pains. Return from [place] 8 days ago was feeling well. History of A-fib on Eliquis. History of TIA coronary disease with stent in the past. She is on baby aspirin. Denies any sick contacts. Diabetic, ran out of her insulin 15 hours ago she is on 10 units of 70/30. Stent placed in her pancreatic duct in the past history of pancreatic cancer. Reports mild myalgias. [facility] Medical History Pancreatic mass History of uterine [...] with myalgias. COVID flu RSV also sent. 0 urine negative had a white count of 13.9 she has transaminitis with a bilirubin of 4.8. Reviewing the records in December bilirubin as high as 10, she was transferred to [facility] As ERCP was attempted and unsuccessful. This was a new diagnosis in December I did discuss with patient son and her daughter on the phone. Patient stopped treatment due to side effects. There is reason why she went to [place] to see family. I discussed palliative and [...] stable. I discussed with her care at [facility] For transfer however patient states she would [...] clinician: Hospitalist This note was generated with Pay with a Tweetation software. It may contain incorrectwords, spelling, and [...] 84.7 H Lymph % (Auto) 3.3 L [place] % (Auto) 11.4 H Eos % (Auto) [...] Clarity Clear Urine pH 7.0 Ur Specific [place] 1.005 Urine Protein 30 H Urine Glucose [...] position. No abdominopelvic injury noted. Reading Location: [place] [address] Discharge Plan Triage Chief Complaint: General Illness [...] MD [Primary Care Provider] - Print Language: Turkmen Disposition Disposition: Acute Care Hospital [facility] What to do if you have Problems For any increased pain, shortness of breath, bleeding, nausea or vomiting, chestpain, or any unexpected problems, contact your Primary Care Provider. Call [facility] ([phone]) or report to the closest Emergency Room. Call 911 if necessary. 05/31/25 0341 <Electronically signed by Yeyo Palencia> Cosigner Signature (if applicable): CC: Dr. Henok Martinez MD ~ Signed [facility] Work Phone: 1(431) 763-527608-04-2025 Discharge summary [facility] Medical Records Department [address] [place] [address] Emergency Department Summary 05/30/25 MR#: [id number] Acct: [id number] Name: TELMA TINEO Rep #:[id number] : 1940 84 From: Yeyo Palencia PCP: [...] abdominal discomfort. No chest pains. Return from [place] 8 days ago was feeling well. History of A-fib on Eliquis. History of TIA coronary disease with stent in the past. She is on baby aspirin. Denies any sick contacts. Diabetic, ran out of her insulin 15 hours ago she is on 10 units of 70/30. Stent placed in her pancreatic duct in the past history of pancreatic cancer. Reports mild myalgias. [facility] Medical History Pancreatic mass History of uterine [...] myself: CT chest abdomen pelvis with IV contrast:Nonspecific left axillary lymph adenopathy. Nonvisualized pancreatic mass seen previously. Biliary stent in place. No other acute process. External documents reviewed: N/A Test considered but not ordered:N/A ED course: Patient temp 100.1, dry mucosal membranes. Reporting viral-like symptoms without cough. Labs with liver enzymes ordered. Urine ordered. Viralswab. IV fluids given along with antiemetics and Tylenol with myalgias. COVID flu RSV also sent. 2330 urine negative had a white count of 13.9 she has transaminitis with a bilirubin of 4.8. Reviewing the records in December bilirubin as high as 10, she was transferred to [facility] As ERCP was attempted and unsuccessful. This was a new diagnosis in December I did discuss with patient son and her daughter on the phone. Patient stopped treatment due to side effects. There is reason why she went to [place] to see family. I discussed palliative and [...] stable. I discussed with her care at [facility] For transfer however patient states she would like to go home. Discussed at this time we will obtain blood cultures image studies with giving her antibiotics and will reevaluate her decision. 0310: CT results biliary stent in place. Per radiology no visualization of the pancreatic mass thatwas seen previously. Vitals are stable. Fever improved [...] clinician: Hospitalist This note was generated with Meritful dictation software. It may contain incorrectwords, spelling, [...] 84.7 H Lymph % (Auto) 3.3 L [place] % (Auto) 11.4 H Eos % (Auto) [...] Clarity Clear Urine pH 7.0 Ur Specific [place] 1.005 Urine Protein 30 H Urine Glucose [...] position. No abdominopelvic injury noted. Reading Location: [place] [address] Discharge Plan Triage Chief Complaint: General Illness [...] MD [Primary Care Provider] - Print Language: Turkmen Disposition Disposition: Acute Care Hospital [facility] What to do if you have Problems For any increased pain, shortness of breath, bleeding, nausea or vomiting, chestpain, or any unexpected problems, contact your Primary Care Provider. Call [facility] ([phone]) or report tothe closest Emergency Room. Call 911 if necessary. 05/31/25 0341 Cosigner Signature (if applicable): CC: Dr. Henok Martinez MD ~ Signed [facility]08-04-2025 Radiology Diagnostic study note [facility] Imaging Services [address] [place] [address] CT Chest, Abd, Pel w/Contrast MR#: [id number] Acct: [id number] Name: TELMA TINEO Rep #: [id number] : 1940 F 84 From: Sumaya Hinton MD PCP: Dr. Henok Martinez MD Status: REG E R Study:CT Chest, Abd, Pel w/Contrast Date of E xam: 05/30/25 Exam# [id number] Ordering Dr: Yeyo Valentine DO PROCEDURE: CT [...] definitely seen, possibly indicating response to treatment. Thereis stable periportal adenopathy, nonspecific. Unremarkable spleen, adrenal [...] position. No abdominopelvic injury noted. Reading Location: [place] [address] CC: Dr. Yeyo Valentine DO; Dr. Henok Martinez MD ~ Program Engagement Director: Signed [facility]08-03-2025 Discharge summary Author Yeyo Valentine [facility] Note Date/Time May 31, 2025 3:4 1am [facility] Medical Records Department [address] [place] [address] Emergency Department Summary 05/30/25 MR#: [id number] Acct: [id number] Name: TELMA TINEO Rep #:[id number] 84 From: Yeyo Palencia PCP: [...] abdominal discomfort. No chest pains. Return from [place] 8 days ago was feeling well. History of A-fib on Eliquis. History of TIA coronary disease with stent in the past. She is on baby aspirin. Denies any sick contacts. Diabetic, ran out of her insulin 15 hours ago she is on 10 units of 70/30. Stent placed in her pancreatic duct in the past history of pancreatic cancer. Reports mild myalgias. [facility] Medical History Pancreatic mass History of uterine [...] Severe anaphylaxis Verified 05/30/25 21:31 tramadol (From Ultra) AdvReac Severe syncope Verified 05/30/25 21:31 Family [...] with myalgias. COVID flu RSV also sent. 2330 urine negative had a white count of 13.9 she has transaminitis with a bilirubin of 4.8. Reviewing the records in December bilirubin as high as 10, she was transferred to [facility] As ERCP was attempted and unsuccessful. This was a new diagnosis in December I did discuss with patient son and her daughter on the phone. Patient stopped treatment due to side effects. There is reason why she went to [place] to see family. I discussed palliative and [...] stable. I discussed with her care at [facility] For transfer however patient states she would [...] clinician: Hospitalist This note was generated with Meritful dictation software. It may contain incorrectwords, spelling, [...] 84.7 H Lymph % (Auto) 3.3 L [place] % (Auto) 11.4 H Eos % (Auto) [...] Clarity Clear Urine pH 7.0 Ur Specific [place] 1.005 Urine Protein 30 H Urine Glucose [...] position. No abdominopelvic injury noted. Reading Location: [place] [address] Discharge Plan Triage Chief Complaint: General Illness [...] MD [Primary Care Provider] - Print Language: Turkmen Disposition Disposition: Acute Care Hospital [facility] What to do if you have Problems For any increased pain, shortness of breath, bleeding, nausea or vomiting, chestpain, or any unexpected problems, contact your Primary Care Provider. Call [facility] ([phone]) or report to the closest Emergency Room. Call 911 if necessary. 05/31/25 0341 <Electronically signed by Yeyo Palencia> Cosigner Signature (if applicable): CC: Dr. Henok Martinez MD ~ Signed [facility] Work Phone: 1(387) 578-856207-30-2025 History of Present illness Narrative* Shirin Spears, RT(R) - 05/26/2025 2:20 PM EDT Radiology [...] PATIENT PRESENTS WITH AN IMPLANTABLE OR ATTACHED CORN SHELLER: No ALLERGIES: Reviewed and unchanged CONTRAST ALLERGY: [...] 2025 TIME: 3:36 PM documented in this encounterMercy [facility]07-30-2025 NoteC[facility]07-30-2025 NoteC[facility]07-30-2025 History of Present illness Narrative* Skyler Morton MA - 05/26/2025 7:55 AM EDT POPULATION HEALTH NAVIGATION OUTREACH Action/FYI LVM [employer] MESSAGE SENT Topic Due (Y or N) [...] message MyChart message sent Navigation Signature: Skyler Morton MA May 26, 2025 7:56 AM documented in this encounterMercy Health Perrysburg Hospital07-29-2025 Telephone encounter Note * Telephone Encounter - Fatoumata Glynn - 05/25/2025 4:00 PM EDT Returned pt daughter call, who was returning my call from earlier today. [facility]07-29-2025 Miscellaneous Notes* Telephone Encounter - Fatoumata [...] but she cancelled because she was in [place]. LM to call me back. documented in this encounterMercy Health Perrysburg Hospital07-29-2025 Telephone encounter Note * Telephone Encounter [...] but she cancelled because she was in [place]. LM to call me back. [facility]07-29-2025 NoteCleBarn[facility]ville Hospital07-29-2025 History of Present illness Narrative* Juan Miguel [...] presented with painless jaundice, admitted initially at [facility], transferred for further work up at [facility]. Saw hepatobiliary surgery there, noted pancreatic [...] Last dose February 05, [address] Bazzi subsequently CLINICAL IMPRESSION: Borderline resectable pancreatic adenocarcinoma [...] (4) times daily. Blood Pressure Test Kit-Large (Black Card MediaLIFE ARM BP MONITOR) 1 Each once daily. [...] which included preparing to see the patient, [id number] patient care, completing clinical documentation, obtaining and/or reviewing separately obtained history, counseling and educating the patient/family/caregiver, ordering medications, nicko ts, or procedures, communicating with other HCPs (not separately reported), independently interpreting results (not separately reported), communicating results to the patient/family/caregiver, and care coordination (not separately reported). Electronically Signed: Juan Miguel Yusuf MD May 25, 2025 documented in this encounterMercy Health Perrysburg Hospital07-24-2025 Telephone encounter Note * Telephone Encounter - Amanda Fragoso - 05/20/2025 2:55 PM EDT Spoke w pt daughter and she is scheduled for 05/[address] Yusuf. Will schedule w Dr. Stoner when sheis here. Amanda Fragoso [facility]07-24-2025 Miscellaneous Notes* Telephone Encounter - Amanda Fragoso - 05/20/2025 2:55 PM EDT Spoke w pt daughter and she is scheduled for 05/[address] Yusuf. Will schedule w Dr. Stoner when sheis here. Amanda Fragoso * Telephone Encounter - Oma Linton RN - 05/13/2025 2:28 PM EDT Call Sujata or Timothy at any time [...] to reschedule with Dr. Diaz in at [place]? Please call Sujata or Timothy to schedule. Elaian Linton RN documented in this encounterMercy Health [facility]sburg Hospital07-17-2025 Telephone encounter Note * Telephone Encounter - Oma Linton RN - 05/13/2025 2:28 PM EDT Call [...] reschedule with Dr. Diaz in GI at [place]? Please call Sujata or Timothy to schedule. Elaina Linton RN [facility] Work Phone: [phone] Telephone encounter Note* Telephone Encounter - Lynette Ríos RN - 04/22/2025 7:56 PM EDT [...] by mouth every 8 hours as needed. Lynette Ríos RN April 22, 2025 7:57 PM [facility]06-26-2025 Miscellaneous Notes* Telephone Encounter - Lynette Ríos RN - 04/22/2025 7:56 PM EDT [...] by mouth every 8 hours as needed. Lynette Ríos RN April 22, 2025 7:57 PM documented in this encounterMercy Health Perrysburg Hospital06-23-2025 Telephone encounter Note * Telephone Encounter - Virginia Garcia APRN.CNP - 04/19/2025 5:58 PM EDT The following approved medication requests have been transmitted electronically. Requested Prescriptions Pending Prescriptions Disp Refills sucralfate (CARAFATE) 1 gram tablet 120 tablet 1 Sig: Take 1 tablet by mouth four times daily. Virginia Garcia APRN.CNP [facility]06-23-2025 Miscellaneous Notes* Telephone Encounter - Virginia Garcia APRN.CNP - 04/19/2025 5:58 PM EDT The following approved medication requests have been transmitted electronically. Requested Prescriptions Pending Prescriptions Disp Refills sucralfate (CARAFATE) 1 gram tablet 120 tablet 1 Sig: Take 1 tablet by mouth four times daily. Virginia Garcia APRN.CNP * Telephone Encounter - Jose Ortiz [...] prescription for Tolu sensors was sent to [facility] on 04/12/25. Pt is not due for refill. Jose Ortiz LPN April 19, 2025 5:39 PM documented in this encounterMercy Health Perrysburg Hospital06-23-2025 Telephone encounter Note * Telephone Encounter [...] prescription for Tolu sensors was sent to [facility] on 04/12/25. Pt is not due for refill. Jose Ortiz LPN April 19, 2025 5:39 PM [facility]06-16-2025 Telephone encounter Note* Telephone Encounter - Johnna Medina LPN - 04/12/2025 2:54 PM EDT Son reports pt is still in [place] and is staying longer than first thought. [...] Medina LPN April 12, 2025 2:54 PM [facility]06-16-2025 Miscellaneous Notes* Telephone Encounter - Johnna Medina LPN - 04/12/2025 2:54 PM EDT Son reports pt is still in [place] and is staying longer than first thought. [...] 12, 2025 2:54 PM documented in this encounterMercy Health Perrysburg Hospital06-12-2025 Telephone encounter Note * Telephone Encounter - Oma Linton RN - 04/08/2025 11:32 AM EDT Thank you, patient has cancelled all of her chemotherapy treatments. Elaina Linton RN [facility] Work Phone: [phone] Miscellaneous Notes* Telephone Encounter - Oma Linton RN - 04/08/2025 11:32 AM EDT Thank you, patient has cancelled all of her chemotherapy treatments. Elaina Linton RN * Telephone Encounter - Isela Morris RN - 04/08/2025 11:11 AM EDT FYI- Patient is scheduled for consult with Dr Stoner on 04/19/25 for palliative radiation. [place]. Patient is also scheduled for another ERCP 04/20. She saw Dr Bazzi on 04/06 and is not a surgical candidate. I just wanted to make sure that you were aware. documented in this encounterMercy Health Perrysburg Hospital06-12-2025 Telephone encounter Note * Telephone Encounter - Isela Morris RN - 04/08/2025 11:11 AM EDT FYI- Patient is scheduled for consult with Dr Stoner on 04/19/25 for palliative radiation. [place]. Patient is also scheduled for another ERCP 04/20. She saw Dr Bazzi on 04/06 and is not a surgical candidate. I just wanted to make sure that you were aware. [facility]06-10-2025 Telephone encounter Note* Telephone Encounter - [...] 04/11-. Are you on any blood thinners? Martaquis, aware to stop 3 days prior Are you on any diabetic medications? no Do you have any allergies? In chart and current Scheduled ERCP for 04/20/25 8am. [facility]06-10-2025 Miscellaneous Notes* Telephone Encounter - Fatoumata [...] ERCP for 04/20/25 8am. documented in this encounterMercy Health Perrysburg Hospital06-10-2025 History of Present illness Narrative* Ayaz Bazzi MD - 04/06/2025 1:45 PM EDT Images from the original note were not included. Ayaz Bazzi MD Surgical Oncology [address], [address] [place] [id number] Name: Telma Tineo Age: [age] year old [...] patient and family were not interested. Ayaz Bazzi MD 1528 04/06/2025 documented in this encounterMercy Health Perrysburg Hospital06-10-2025 [facility]06-05-2025 NoteHNO ID: [id number] Author: SKYLER MORTON MA Service: ? Author Type: Metal Roaster Type: Progress Notes Filed: 04/01/2025 15:58 Note Text: Opened in errorCleveland Clinic Eucl[facility]06-05-2025 History of Present illness Narrative* Skyler Morton MA - 04/01/2025 3:56 PM EDT Opened in error documented in this encounterMercy Health Perrysburg Hospital06-03-2025 Instructions* Patient Instructions* Henok Martinez MD [...] about one month after you return from [place]. Call our office when you re back [...] needed at this time. documented in this encounterMercy Health Perrysburg Hospital06-03-2025 NoteC[facility] Clinic [facility]06-03-2025 History of Present illness Narrative* Henok Martinez MD - 03/30/2025 2:03 PM EDT Telma is an 84-year-old female with a history of pancreatic cancer, diabetes, and recent pneumonia,presenting for follow-up. HPI Pancreatic Cancer: - Telma [...] mouth once daily. Blood Pressure Test Kit-Large (Villij ARM BP MONITOR) 1 Each once daily. [...] - doing well. 5. Bronchiectasis without complication ([facility]) (J47.9) No changes. 6. Gastroesophageal reflux disease without esophagitis (K21.9) - stable. 7. Malignant neoplasm of head of pancreas ([facility]) (C25.0) - Patient has opted to discontinue [...] as hospice. - She is going to [place] to visit relatives. 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 Notify us if any difficulties are noted. 9. Type 2 diabetes mellitus with hyperglycemia, with long-term current use of insulin ([facility]) (E11.65) - Blood glucose levels are reportedly well-controlled, with occasional elevations during the day. - Continue current insulin regimen. - Monitor blood glucose levels regularly. (See patient after visit summary for additional instructions to patient) Henok Martinez MD Recording using Nazar software for draft documentation of the visit was discussed with the patient/authorized account retention representative; all questions welcomed and answered. Patient/authorized account retention representative agreed to proceed documented in this encounterMercy Health [facility]sburg Hospital05-22-2025 NoteC[facility]05-19-2025 Telephone encounter Note* Telephone Encounter - Mame To - 03/15/2025 1:01 PM EDT All appointments here have been canceled Mame Barreto [facility]05-19-2025 Miscellaneous Notes* Telephone Encounter - Mame To - 03/15/2025 1:01 PM EDT All appointments here have been canceled Mame Diaz Pss * Telephone Encounter - Oma Linton RN - 03/15/2025 12:56 PM EDT PSS: please cancel all upcoming appointments with our office. Elaina Linton RN * Telephone Encounter - Oma Linton RN - 03/15/2025 12:55 PM EDT Received a call back from Timothy. Patient would like to put further treatments on hold. Timothy will keep us updated and call back if/when she is ready to have follow up and/or restart treatments. This nurse will make a reminder to check in with Timothy in a month if no return call by then. Elaina Linton RN * Telephone Encounter - Oma Linton RN - 03/15/2025 10:27 AM EDT Call to Timothy to clarify if we needed to cancel treatment also this week. No answer, left VM for himto call the office back. Elaina Linton RN * Telephone Encounter - Jeanna Glynn [...] last night and she is leaving for [place] 03/18 to say goodbyes to her family. Son thinks she may end up staying in [place] but is not sure. documented in this encounterMercy Health Perrysburg Hospital05-19-2025 Telephone encounter Note * Telephone Encounter - Oma Linton RN - 03/15/2025 12:56 PM EDT PSS: please cancel all upcoming appointments with our office. Elaina Linton RN [facility] Work Phone: 1(495) 847-343605-19-2025 Telephone encounter Note* Telephone Encounter - Oma Linton RN - 03/15/2025 12:55 PM EDT Received a call back from Timothy. Patient would like to put further treatments on hold. Timothy will keep us updated and call back if/when she is ready to have follow up and/or restart treatments. This nurse will make a reminder to check in with Timothy in a month if no return call by then. Elaina Linton RN [facility]05-19-2025 Telephone encounter Note* Telephone Encounter - Oma Linton RN - 03/15/2025 10:27 AM EDT Call to Timothy to clarify if we needed to cancel treatment also this week. No answer, left VM for himto call the office back. Elaina Linton RN [facility]05-19-2025 Telephone encounter Note* Telephone Encounter - [...] last night and she is leaving for [place] 03/18 to say goodbyes to her family. Son thinks she may end up staying in [place] but is not sure. [facility]05-14-2025 NoteC[facility] Clinic [facility]05-14-2025 History of Present illness Narrative* Nicole Rodriguez RN - 03/10/2025 11:38 AM EDT Value Based Care Coordination Chart Review Provider Action / FYI: Upon review of patient chart, the patient is excluded from Chronic Disease Management Patient is not a candidate for CDM at this time and placed in the following status: Unable to reach Action taken: No action needed . Nicole Rodriguez RN March 10, 2025 11:39 AM documented in this encounterMercy Health Perrysburg Hospital05-12-2025 Telephone encounter Note * Telephone Encounter - Henok Martinez MD - 03/08/2025 2:22 PM EDT Rx sent [facility]05-12-2025 Miscellaneous Notes* Telephone Encounter - Henok [...] refills need to be sent to [facility]. The patient has been identified by name [...] 08, 2025 2:21 PM documented in this encounterMercy Health Perrysburg Hospital05-12-2025 Telephone encounter Note * Telephone Encounter - Nat Marcelo RN - 03/08/2025 2:19 PM EDT Patient's son calling and is asking if patient needs to continue taking sucralfate. Patient had ulcer while she was in hospital. Son asking if patient needs to continue this medication? If patient isto continue medication new prescription with refills need to be sent to [facility]. The patient has been identified by name [...] Marcelo RN March 08, 2025 2:21 PM [facility]05-07-2025 Telephone encounter Note* Telephone Encounter - Mame To - 03/03/2025 11:21 AM EDT Tejas stated that she was going to come in soon for the x-ray and then based on those results she will schedule for port placement if the x-ray looks clear Mame Barreto [facility]05-07-2025 Miscellaneous Notes* Telephone Encounter - Mame [...] good Mame Barreto * Telephone Encounter - Oma Linton RN - 03/03/2025 9:29 AM EDT PSS: please move out appointments 03/09 and 03/10 out a week and adjust schedule. please call Timothy with new date/times. Elaina Linton RN * Telephone Encounter - Oma Linton RN - 03/03/2025 9:28 AM EDT Call to Timothy, aware ok for travel to [place]. He states she is planning to be out of town for a week. 03/05 to 03/12. Appointments will need to be rescheduled. Elaina Linton RN * Telephone Encounter - Oma Linton RN - 03/03/2025 9:24 AM EDT Images from the original note were not included. * Telephone Encounter - Suri Reynoso - 03/02/2025 3:30 PM EDT Timothy called asking if okay for patient to travel to [place] within the next few days by car. Pleasecall him and advise. documented in this encounterMercy Health Perrysburg Hospital05-07-2025 Telephone encounter Note * Telephone Encounter [...] if the chest x-ray looks good Mame Belles Pss [facility]05-07-2025 Telephone encounter Note* Telephone Encounter - Oma Linton RN - 03/03/2025 9:29 AM EDT PSS: please move out appointments 03/09 and 03/10 out a week and adjust schedule. please call Timothy with new date/times. Elaina Linton RN [facility] Work Phone: [phone] Telephone encounter Note* Telephone Encounter - Oma Linton RN - 03/03/2025 9:28 AM EDT Call to mary Aguirre for travel to [place]. He states she is planning to be out of town for a week. 03/05 to 03/12. Appointments will need to be rescheduled. Elaina Linton RN [facility]05-07-2025 Telephone encounter Note* Telephone Encounter - Oma Linton RN - 03/03/2025 9:24 AM EDT Images from the original note were not included. [facility]05-06-2025 Telephone encounter Note* Telephone Encounter - Suri Reynoso - 03/02/2025 3:30 PM EDT Timothy called asking if okay for patient to travel to [place] within the next few days by car. Pleasecall him and advise. [facility] Work Phone: 1([phone]) 309-464604-30-2025 Instructions* Patient Instructions* Henok Martinez MD - 02/24/2025 11:35 AM EDT Let me know how sugars are on in Saturday. documented in this encounterMercy Health Perrysburg Hospital04-30-2025 NoteCleveland Clinic [facility]04-30-2025 History of Present illness Narrative* Henok Martinez MD - 02/24/2025 10:49 AM EDT No chief complaint on file. HPI: Patient presents today for office visit for hospital follow up. HOSPITAL/ER FOLLOW UP: Reason for visit: pneumonia Which facility: [facility] Date of visit: 02/11/25-02/14/25 Diagnosis: acute [...] sugar. Blood-Glucose Meter,Continuous (FREESTYLE TOLU 3 READER) [facility] Use to check blood sugar at least [...] mouth once daily. Blood Pressure Test Kit-Large (Villij ARM BP MONITOR) 1 Each once daily. [...] medications Henok Martinez MD documented in this encounterMercy Health Perrysburg Hospital04-30-2025 Telephone encounter Note * Telephone Encounter - Shabnam Shah LPN - 02/24/2025 8:57 AM EDT This will be addressed with provider today at visit. [facility]04-30-2025 Miscellaneous Notes* Telephone Encounter - Shabnam Shah LPN - 02/24/2025 8:57 AM EDT This will be addressed with provider today at visit. * Telephone Encounter - Henok Martinez MD - 02/23/2025 4:38 PM EDT Most of the cough meds are now otc. Would start with delsym otc * Telephone Encounter - Nat Buenrostro - 02/23/2025 2:56 PM EDT Spoke with patient's son to reschedule the an appointment. Patient's son is asking if Dr. Martinez can prescribe some cough medicine as the patient's cough is not going away/stopping. Patient is seeing Dr. Becker tomorrow for Hospital Discharge Follow up (Patient will only see MD's/DO's and not FOUNDER PRESIDENT AND CEO'sand first available Hospital D/C w/ Dr. Martinez is almost 3 weeks post-discharge.) Please advise. Nat Buenrostro documented in this encounterMercy Health Perrysburg Hospital04-29-2025 Telephone encounter Note * Telephone Encounter - Henok Martinez MD - 02/23/2025 4:38 PM EDT Most of the cough meds are now otc. Would start with delsym otc [facility]04-29-2025 Telephone encounter Note* Telephone Encounter - Nat Buenrostro - 02/23/2025 2:59 PM EDT Spoke with patient's son and rescheduled with Dr. Becker as patient will only see MD's/DO's and not FOUNDER PRESIDENT AND CEO's. Nat Buenrostro [facility]04-29-2025 Miscellaneous Notes* Telephone Encounter - Nat Buenrostro - 02/23/2025 2:59 PM EDT Spoke with patient's son and rescheduled with Dr. Becker as patient will only see MD's/DO's and not FOUNDER PRESIDENT AND CEO's. Nat Buenrostro * Telephone Encounter - Jose Ortiz LPN - 02/23/2025 10:11 AM EDT Pt was scheduled for 20min 4c Est continued cough follow up. On 02/24/25. Pt was actually admitted to [facility] 02/10/25 and dc'd on 02/14/25 with a diagnosis of pneumonia and RSV.Pt needs rescheduled for a 4c Est Hosp/ER follow up. Jose Ortiz LPN documented in this encounterMercy Health Perrysburg Hospital04-29-2025 Telephone encounter Note * Telephone Encounter - Nat Buenrostro - 02/23/2025 2:56 PM EDT Spoke with patient's son to reschedule the an appointment. Patient's son is asking if Dr. Martinez can prescribe some cough medicine as the patient's cough is not going away/stopping. Patient is seeing Dr. Becker tomorrow for Hospital Discharge Follow up (Patient will only see MD's/DO's and not FOUNDER PRESIDENT AND CEO'sand first available Hospital D/C w/ Dr. Martinez is almost 3 weeks post-discharge.) Please advise. Nat Buenrostro [facility]04-29-2025 Telephone encounter Note* Telephone Encounter - Jose Ortiz LPN - 02/23/2025 10:11 AM EDT Pt was scheduled for 20min 4c Est continued cough follow up. On 02/24/25. Pt was actually admitted to [facility] 02/10/25 and dc'd on 02/14/25 with a diagnosis of pneumonia and RSV.Pt needs rescheduled for a 4c Est Hosp/ER follow up. Jose Ortiz LPN [facility]04-29-2025 Telephone encounter Note* Telephone Encounter - Suri Reynoso - 02/23/2025 9:38 AM EDT Son called and confirmed 03/09 and 14 [facility] Work Phone: [phone] Miscellaneous Notes* Telephone Encounter - Suri Reynoso - 02/23/2025 9:38 AM EDT Son called and confirmed 5/13 and 5/14 * Telephone Encounter - Suri Reynoso - 02/23/2025 9:32 AM EDT Schedule updated Message left for patient to contact office to confirm 5/13 lab and office visit, treatment next day. * Telephone Encounter - Oma Linton RN - 02/22/2025 2:48 PM EDT Cycle 2 cancelled and needs rescheduled for week after her port is placed on 03/04/25. The rest of schedule will need adjusted. Please call patient with new times. She is aware of all this as it was discussed at today. Elaina Linton, RN documented in this encounterMercy Health [facility]04-29-2025 Telephone encounter Note * Telephone Encounter - Suri Reynoso - 02/23/2025 9:32 AM EDT Schedule updated Message left for patient to contact office to confirm 5/13 lab and office visit, treatment next day. [facility]04-28-2025 Telephone encounter Note* Telephone Encounter - Oma Linton RN - 02/22/2025 2:48 PM EDT Cycle 2 cancelled and needs rescheduled for week after her port is placed on 03/04/25. The rest of schedule will need adjusted. Please call patient with new times. She is aware of all this as it was discussed at today. Elaina Linton RN [facility] Work Phone: [phone] History of Present illness Narrative* Suri Rolon RT(R) - 02/22/2025 10:50 AM EDT Radiology [...] PATIENT PRESENTS WITH AN IMPLANTABLE OR ATTACHED CORN SHELLER: Yes Dexcom RADIOLOGY DEPARTMENT: General X-ray: Exam(s) Completed: Chest X-Ray PERIPHERAL IV DATA: Not applicable SIGNED BY: RT Tahmina(R) February 22, 2025 2:02 PM documented in this encounterMercy Health [facility]04-28-2025 [facility]04[facility]28[facility]20[facility]04-24-2025 [facility]04-21-2025 Telephone encounter Note* Telephone Encounter - Oma Linton RN - 02/15/2025 12:[address] Yusuf and mary anne for anurag this . Keep appointments as scheduled. Elaina Linton RN [facility] Work Phone: 1(367) 484-763804-21-2025 Miscellaneous Notes* Telephone Encounter - Oma Linton RN - 02/15/2025 12:[address] Yusuf and mary anne osborn this . Keep appointments as scheduled. Elaina Linton RN * Telephone Encounter - Oma Linton RN - 02/15/2025 10:17 AM EDT DISCHARGE CALL BACK Today's date: February 15, 2025 Notified of Pt discharge by: Erin Patient discharged on 02/14/25 from [facility] to [place] Primary Cancer Diagnosis: pancreatic Admitting Diagnosis: acute pneumonia Discharge Summary/SBAR reviewed: Yes Handoff Discussed with Transitional Sales Merchandising Specialist: N/A Psychosocial Risk Factors: None If patient [...] Yes Patient reminded of follow-up appointment with [facility] provider, Dr. Yusuf on 02/22/25: Yes Discussed [...] after hours and weekend phone number? YES Oma Royer, RN documented in this encounterMercy Health [facility]04-21-2025 [facility]04-21-2025 History of Present illness Narrative* Nancy Betancur MA - 02/15/2025 10:18 AM EDT POPULATION HEALTH NAVIGATION OUTREACH Action/FYI February 15, 2025 10:18 AM CM Pool Message Type: TCM Navigation Team Update / Actionable Items Spoke with Patient's son. Patient TCM eligible till 03/01/2025. High risk 17% or higher. Please schedule within 7 days Patient discharged from [facility] Discharge date: 02/14/2025 Admitted for: Acute Pneumonia Readmission Risk: 17 Value-Based Contract: [facility] Six week follow up scheduled with Henok [...] Follow-up: High risk >15% Navigation Signature: Nancy Betancur MA February 15, 2025 10:18 AM * Radha Cagle RN - 02/15/2025 9:46 AM EDT Transition Care Management (TCM) Initial Outreach PCP Update / Actionable Items Navigation Team Update / Actionable Items Spoke with Patient's son. Patient TCM eligible till 03/01/2025. High risk 17% or higher. Please schedule within 7 days. Thanks! HRTIC TCM Home Visit Referral Source of Stratification: [facility] Admission Status: Discharged Readmission Risk Score: 17 Patient's zip code: [address] Is zip code within program service area: [...] 10:00 AM Nurse Vst with Lab/[facility] Hematology/Oncology February 22, 2025 10:20 AM Office Vst with Juan Miguel Yusuf MD Hematology/Oncology February 24, 2025 11:00 AM 3 Hr Tx with TREATMENT RM 6 [facility] Hematology/Oncology Spoke with patient's son, Timothy. [...] losartan 100 mg tablet Patient discharged from [facility] Discharge date: 02/14/2025 Admitted for: Acute Pneumonia Readmission Risk: 17 Value-Based Contract: [facility] Contact: Contact made with patient: Yes Hi, my name is Radha Cagle RN and I am calling from the [facility] on behalf of your Primary Care [...] I will send your request to a drain tiler who will contact and assist you with [...] care topics, and follow-up needed upon discharge. Radha Cagle RN February 15, 2025 9:59 AM documented in this encounterMercy Health [facility]04-21-2025 Telephone encounter Note * Telephone Encounter - Oma Linton RN - 02/15/2025 10:17 AM EDT DISCHARGE CALL BACK Today's date: February 15, 2025 Notified of Pt discharge by: Erin Patient discharged on 02/14/25 from [facility] to Home Primary Cancer Diagnosis: pancreatic Admitting Diagnosis: acute pneumonia Discharge Summary/SBAR reviewed: Yes Handoff Discussed with Transitional Sales Merchandising Specialist: N/A Psychosocial Risk Factors: None If patient [...] Yes Patient reminded of follow-up appointment with [facility] provider, Dr. Yusuf on 02/22/25: Yes Discussed [...] after hours and weekend phone number? YES Oma Linton RN [facility]04-21-2025 [facility]04-19-2025 [facility]04-18-2025 [facility]04-18-2025 Note HNO ID: [id number] Author: YUSUF EPPS RN Service: ? Author Type: Registered Nurse Type: Progress Notes Filed: 02/12/2025 08:21 Note Text: Patient is inpatient [place].[facility]04-17-2025 [facility]04-17-2025 History of Present illness Narrative* Hilda Wright MA - 02/11/2025 5:08 PM EDT POPULATION HEALTH NAVIGATION OUTREACH Action/FYI Patient's son returning [facility]'s phone call. Son stated patient is currently admitted at [facility]. You can reach son at [phone]. Reason for Outreach Healthy at Home Care Gaps due: N/A Call received from: Patient Patient Contacted: Spoke to patient/parent/or legal guardian Patient identified by name and date of Yes Healthy at Home actions taken: Routed to [facility] Gosia Bynum RN as FYI Navigation Signature: Hilda Wright MA February 11, 2025 5:09 PM documented in this encounterMercy Health [facility]04-17-2025 [facility]04-17-2025 History of Present illness Narrative* Gosia Bynum RN - 02/11/2025 4:03 PM EDT Transitional Care Management (TCM) Inpatient Outreach N/A - No specialty updates needed Summary: Patient admitted to: [facility] Patient admitted on: (Not on file) 02/10/25 Admitted for: acute Pneumonia Contact made with patient: Heather Nieto, NANCY am a Registered Nurse and I am calling from the [facility] on behalf of your primary care provider. I am sorry that I missed you today, but your care is important to us, and we would like to touch base with you. Please check your My Chart for a message related to your current hospital stay., Thank you and have a great day. Gosia Bynum RN February 11, 2025 documented in this encounterMercy Health [facility]04-17-2025 [facility]04-16-2025 OyiaIHND-FTD-1 (AGENT OF COVID-19) RNA: Not detected INFLUENZA A RNA: Not detected INFLUENZA B RNA: Not detected RESPIRATORY SYNCYTIAL VIRUS (RSV) RNA: DetectedSt. Joseph HospitalComment on above:Performed By: #### [id number] ####[facility] LABORATORYCLIA [id number] [address] OF [id number] Telephone encounter Note* Telephone Encounter - Oma Linton RN - 02/09/2025 1:[address] Yusuf updated and no further instructions. Elaina Linton RN [facility] Work Phone: 1(181) 821-439604-15-2025 Miscellaneous Notes* Telephone Encounter - Oma Linton RN - 02/09/2025 1:[address] Yusuf updated and no further instructions. Elaina Linton RN * Telephone Encounter - Oma Linton RN - 02/09/2025 12:04 PM EDT [facility] Care Coordination FOLLOW-UP NOTE Patient identified by [...] and call back if any further instructions. Oma Linton RN February 09, 2025 documented in this encounterMercy Health [facility]04-15-2025 Telephone encounter Note * Telephone Encounter - Oma Linton RN - 02/09/2025 12:04 PM EDT [facility] Care Coordination FOLLOW-UP NOTE Patient identified by [...] and call back if any further instructions. Oma Linton RN February 09, 2025 [facility]04-14-2025 Telephone encounter Note* Telephone Encounter - Azra Hobbs LPN - 02/08/2025 1:46 PM EDT Main . Dental contacted office states pt. Is scheduled for tooth Extraction on 02/15 @ 8:[address] Yusuf made aware. Azra Hobbs LPN [facility]04-14-2025 Miscellaneous Notes* Telephone Encounter - Azra Hobbs LPN - 02/08/2025 1:46 PM EDT [facility]. Dental contacted office states pt. Is scheduled for tooth Extraction on 02/15 @ 8:[address] Yusuf made aware. Azra Hobbs LPN documented in this encounterMercy Health [facility]04-14-2025 Telephone encounter Note * Telephone Encounter - Oma Linton RN - 02/08/2025 12:14 PM EDT [facility] Care Coordination FOLLOW-UP NOTE Patient identified by [...] further follow up needed at this time Oma Linton RN February 08, 2025 [facility] Work Phone: [phone] Miscellaneous Notes* Telephone Encounter - Oma Linton RN - 02/08/2025 12:14 PM EDT [facility] Care Coordination FOLLOW-UP NOTE Patient identified by [...] further follow up needed at this time Oma Linton RN February 08, 2025 documented in this encounterMercy Health [facility]04-11-2025 Telephone encounter Note * Telephone Encounter - Juanis Schuster RN - 02/05/2025 5:03 PM EDT CXR completed today with Dr. Yusuf. ATB started. Follow up scheduled for 02/11/2025 post ATB. Timothy to call back if symptoms change or patient becomes worse. Juanis Schuster RN [facility]04-11-2025 Miscellaneous Notes* Telephone Encounter - Juanis [...] Person calling: son: Timothy Call patient at: [phone] (home) [phone] (cell) Was an appointment scheduled: No. She is at chemo today. Closing statement: Danielle Barreto documented in this encounterMercy Health [facility]04-11-2025 Telephone encounter Note * Telephone Encounter - Rachel Jones - 02/05/2025 3:48 PM EDT Spoke with patient's son and reschedule port placement for 02/18. Rachel Jones [facility]04-11-2025 Miscellaneous Notes* Telephone Encounter - Rachel Jones - 02/05/2025 3:48 PM EDT Spoke with patient's son and reschedule port placement for 02/18. Rachel Jones * Telephone Encounter - Rachel Jones - 02/05/2025 2:55 PM EDT Secure chat started for rescheduling port Rachel Jones * Telephone Encounter - Yelitza Hopper LPN [...] 11:[address] Yusuf called in [facility] for pt. * Telephone Encounter - Nat [...] OK for treatment today. documented in this encounterMercy Health [facility]04-11-2025 Telephone encounter Note * Telephone Encounter - Rachel Jones - 02/05/2025 2:55 PM EDT Secure chat started for rescheduling port Rachel Robert [facility]04-11-2025 Telephone encounter Note* Telephone Encounter - [...] and assist with rescheduling. Yelitza Hopper LPN [facility]04-11-2025 Telephone encounter Note* Telephone Encounter - Yelitza Hopper LPN - 02/05/2025 12:55 PM EDT Images from the original note were not included. [facility]04-11-2025 History of Present illness Narrative* Suri Rolon RT(R) - 02/05/2025 12:30 PM EDT Radiology Service [...] PATIENT PRESENTS WITH AN IMPLANTABLE OR ATTACHED CORN SHELLER: Yes [facility] RADIOLOGY DEPARTMENT: General X-ray: Exam(s) Completed: Chest X-Ray PERIPHERAL IV DATA: Not applicable SIGNED BY: RT Tahmina(R) February 05, 2025 12:02 PM documented in this encounterMercy Health [facility]04-11-2025 [facility]04-11-2025 Telephone encounter Note* Telephone Encounter - Rosa Anguiano LISW - 02/05/2025 11:44 AM EDT SOCIAL [...] take advantage of support groups, either through [address] [place] [address], [facility], or [facility]. He reports [...] in Care Team tab: Yes JOSÉ Ferguson-Naveen [facility]04-11-2025 Miscellaneous Notes* Telephone Encounter - Rosa Anguiano LISW - 02/05/2025 11:44 AM EDT SOCIAL [...] take advantage of support groups, either through [address] [place] [address], [facility], or [facility]. He reports [...] tab: Yes KANDACE Ferguson documented in this encounterMercy Health [facility]04-11-2025 Telephone encounter Note * Telephone Encounter - Nat Clifford RN - 02/05/2025 11:[address] Yusuf called in [facility] for pt. [facility]04-11-2025 Telephone encounter Note* Telephone Encounter - Rosa Anguiano LISW - 02/05/2025 10:34 AM EDT PSYCHOSOCIAL [...] Father is Child/Children: Yes. How many? 6 day care provider arrangements needed: No Siblings: 5 sisters and 5 brothers Grandchild(nirmala): > 5 Home Health Provider: No Community Services: No Cherie Identified: Yes Nondenominational/Spirituality: Mosque Are these practices or beliefs that may affect or influence treatment? 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 No Financial Distress: No [place]: No FOOD INSECURITY Within the past year, [...] EPIC: No Health Care Durable Power of Diversity Intern: No and provided Living Will information for [...] six adult children,3 of whom live in [place], 3 still living in [place] where pt moved from. Pt reports she was born andraised in [place] and moved to [place], [place] at 19 years old. Pt raised [...] not workingin order to care for pt. SAM discussed with Timothy how to become a paid caregiver for pt and advised him to call pt's Medicaid correctional case records supervisor and apply through the state. Pt declines [...] in Care Team tab: Yes JOSÉ Ferguson-Naveen [facility]04-11-2025 Miscellaneous Notes* Telephone Encounter - Rosa Anguiano LISW - 02/05/2025 10:34 AM EDT PSYCHOSOCIAL [...] Father is Child/Children: Yes. How many? 6 day care provider arrangements needed: No Siblings: 5 sisters and 5 brothers Grandchild(nirmala): > 5 Home Health Provider: No Community Services: No Cherie Identified: Yes Nondenominational/Spirituality: Mosque Are these practices or beliefs that may affect or influence treatment? 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 No Financial Distress: No : [...] EPIC: No Health Care Durable Power of Diversity Intern: No and provided Living Will information for [...] six adult children,3 of whom live in [place], 3 still living in [place] where pt moved from. Pt reports she was born andraised in [place] and moved to [place], [place] at 19 years old. Pt raised [...] and advised him to call pt's Medicaid correctional case records supervisor and apply through the state. Pt declines [...] tab: Yes KANDACE Ferguson documented in this encounterMercy Health [facility]04-11-2025 Telephone encounter Note * Telephone Encounter [...] stated above. States OK for treatment today. [facility]04-11-2025 Telephone encounter Note* Telephone Encounter - Li Allison MA - 02/05/2025 10:03 AM EDT Message left for sonTimothy to call back to schedule an appointment for Telma. Li Allison MA [facility]04-11-2025 Telephone encounter Note* Telephone Encounter - Henok Martinez MD - 02/05/2025 9:43 AM EDT With her issues,likely needs seen [facility]04-11-2025 Telephone encounter Note* Telephone Encounter - [...] Person calling: son: Timothy Call patient at: [phone] (home) [phone] (cell) Was an appointment scheduled: No. She is at chemo today. Closing statement: Danielle Barreto [facility] Work Phone: 1(171) 943-968504-11-2025 Telephone encounter Note* Telephone Encounter - Oma Linton RN - 02/05/2025 8:58 AM EDT No return phone call yesterday or this am. She has treatment scheduled for today and we can f/u with Timothy/patient at that time. Elaina Linton RN [facility] Work Phone: 1(883) 305-793404-11-2025 Miscellaneous Notes* Telephone Encounter - Oma Linton RN - 02/05/2025 8:58 AM EDT No return phone call yesterday or this am. She has treatment scheduled for today and we can f/u with Timothy/patient at that time. Elaina Linton RN * Telephone Encounter - Oma Linton RN - 02/04/2025 11:17 AM EDT Call for update on patient. Spoke with Timothy, they are at f/u with Dr. Bazzi. He will call back at a later time. Elaina Linton RN documented in this encounterMercy Health [facility]04-10-2025 Telephone encounter Note * Telephone Encounter - Oma Linton RN - 02/04/2025 11:17 AM EDT Call for update on patient. Spoke with Timothy, they are at f/u with Dr. Bazzi. He will call back at a later time. Elaina Linton RN [facility]04-10-2025 History of Present illness Narrative* Ayaz Bazzi MD - 02/04/2025 11:00 AM EDT Images from the original note were not included. Ayaz Bazzi MD Surgical Oncology [address] [place] [address], [address] [place] [address] Name: Telma Tineo Age: [age] year old [...] with Med Onc for neoadjuvant chemotherapy with Arthur/Abraxane. -Recommended restaging after 6 cycles of chemo - will coordinate timing of follow up with Dr. Yusuf -Currently on cycle 2. -Will present at tumor board for review of images. Ayaz Bazzi MD 211802/04/2025 documented in this encounterMercy Health [facility]04-10-2025 [facility]04-09-2025 [facility]04-09-2025 Telephone encounter Note* Telephone Encounter - Leobardo Bliss - 02/03/2025 12:23 PM EDT 1st time treatment report. Spoke with patient's son, Timothy, and explained that the patient has Medicare A and B as well as [facility] Medicaid so she is covered at 100%. Told him to call me periodically to see if any assistance opens up for her pancreatic cancer. Sent Cost Facit to patient's mychart. Diagnosis: Pancreatic Cancer - C25.0...01/19/25 Doctor: Juan Miguel Yusuf MD...[id number] [facility]04-09-2025 Miscellaneous Notes* Telephone Encounter - Leobardo Bliss - 02/03/2025 12:23 PM EDT 1st time treatment report. Spoke with patient's son, Timothy, and explained that the patient has Medicare A and B as well as [facility] Medicaid so she is covered at 100%. Told him to call me periodically to see if any assistance opens up for her pancreatic cancer. Sent Cost Facit to patient's mychart. Diagnosis: Pancreatic Cancer - C25.0...01/19/25 Doctor: Juan Miguel Yusuf MD...[id number] documented in this encounterMercy Health [facility]04-07-2025 NoteC[facility]04-07-2025 History of Present illness Narrative* Henok Martinez [...] without alteration from discharge summary. Admitted to [facility] and then transferred to [facility]. Admission Information ADMIT DATE: 01/14/2025 DISCHARGE DATE: 01/23/2025 REASON I WAS IN THE HOSPITAL: Uncontrolled diabetes, melena(GI bleed), pancreatic adenocarcinoma, obstructive jaundice, duodenal ulcer SUMMARY OF WHAT HAPPENED WHILE I WAS IN THE HOSPITAL: The patient is a pleasant 84-year-old female with history of A-fib on Eliquis and type 2 diabetes presented from [place] with pancreatic mass. She underwent EUS, ERCP [...] also wishes to recheck out to her head of mobile earlier this week to ensure that he [...] sugar. Blood-Glucose Meter,Continuous (FREESTYLE TOLU 3 READER) [facility] Use to check blood sugar at least [...] Reported on 01/26/2025) Blood Pressure Test Kit-Large (Villij ARM BP MONITOR) 1 Each once daily. [...] Getting port placed. Doing well. 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 Henok Martinez MD documented in this encounterMercy Health [facility]04-04-2025 Telephone encounter Note * Telephone Encounter - Rosa Anguiano LISW - 01/29/2025 3:24 PM EDT SOCIAL [...] her mother. Print out of offices by [facility] that accept Medicaid provided to pt's daughter. A few additional resources in [facility] provided as well. SW and pt also [...] treatment. Pt inquiring about bedside commode, SW discussedwith daughter how to acquire one. SW answered all questions as able and provided emotional support and active listening throughout. No other needs identified at this time. PLAN: Continue follow up as needed F/U APPOINTMENT: PRN Assigned SW listed in Care Team tab: Yes JOSÉ Ferguson-S [facility]04-04-2025 Miscellaneous Notes* Telephone Encounter - Rosa Anguiano LISW - 01/29/2025 3:24 PM EDT SOCIAL WORK FOLLOW UP NOTE: [facility] Date of service: January 29, 2025 Telma Tineo is being seen for a follow up social work visit. Today's visit includes: daughter, Telma TOPICS ADDRESSED: SMA met with pt's daughterTelma, this date. Daughter [...] her mother. Print out of offices by [facility] that accept Medicaid provided to pt's daughter. A few additional resources in [facility] provided as well. SW and pt also [...] treatment. Pt inquiring about bedside commode, SW discussedwith daughter how to acquire one. SW answered all questions as able and provided emotional support and active listening throughout. No other needs identified at this time. PLAN: Continue follow up as needed F/U APPOINTMENT: PRN Assigned SW listed in Care Team tab: Yes JOSÉ Ferguson-S documented in this encounterMercy Health [facility]04-04-2025 Telephone encounter Note * Telephone Encounter - Sun Knowles OCCA - 01/29/2025 1:42 PM EDT TC back to Timothy who verbalized understanding that scripts sent as requested. CHAY Tolbert [facility]04-04-2025 Miscellaneous Notes* Telephone Encounter - Sun [...] at least 10 days. Please send to [facility] in [place] Patient has been identified by name and birthdate. Duration of symptoms: Person calling: son: Timothy Call patient at: at home [phone] (home) [phone] (cell) Was an appointment scheduled: No Closing statement: Danielle Lassiter Pss documented in this encounterMercy Health [facility]04-04-2025 Telephone encounter Note * Telephone Encounter - Henok Martinez MD - 01/29/2025 1:33 PM EDT sent [facility]04-04-2025 Telephone encounter Note* Telephone Encounter - Sun Knowles OCCA - 01/29/2025 1:24 PM EDT ESTELLE 11/04/2024 NOV 02/01/2025 [facility]04-04-2025 Telephone encounter Note* Telephone Encounter - Danielle Modi - 01/29/2025 12:09 PM EDT Timothy is calling Henok Martinez MD today to request a new glucometer, test, strips, and lancets. Patient has a freestyle tolu, but it is malfunctioning and they will not get a replacement for at least 10 days. Please send to [facility] in [place] Patient has been identified by name and birthdate. Duration of symptoms: Person calling: son: Timothy Call patient at: at home [phone] (home) [phone] (cell) Was an appointment scheduled: No Closing statement: Danielle Lassitre Pss [facility] Work Phone: [phone]) [phone] Telephone encounter Note* Telephone Encounter - Rosa Anguiano LISW - 01/28/2025 3:02 PM EDT SOCIAL WORK FOLLOW UP NOTE: [facility] Date of service: January 28, 2025 Telma Tineo is being seen for a follow up social work visit. Today's visit includes: Timothy rayo TOPICS ADDRESSED: SW spoke with pt's sonTimothy, this date. SW referred to pt by RNCC d/t needing dental services however having difficulty finding a provider who will accept pt's Medicaid insurance. SW recommended [facility] to pt's son. He reports pt does have an appointment there but that it's not for a while and they were wondering about getting her in somewhere sooner d/t risk of infection while receiving treatment. SW also recommended [facility]. Son reports they have attempted to schedule with them but they will not take Medicaid. Son reports that he will continue looking and is willing to travel to [place] or [place] with pt if needed. Sw to explore [...] in Care Team tab: Yes JOSÉ Ferguson-Naveen [facility]04-03-2025 Miscellaneous Notes* Telephone Encounter - Rosa Anguiano LISW - 01/28/2025 3:02 PM EDT SOCIAL WORK FOLLOW UP NOTE: [facility] Date of service: January 28, 2025 Telma Tineo is being seen for a follow up social work visit. Today's visit includes: Timothy rayo TOPICS ADDRESSED: SW spoke with pt's Timothy rayo, this date. SW referred to pt by RNCC d/t needing dental services however having difficulty finding a provider who will accept pt's Medicaid insurance. SW recommended [facility] to pt's son. He reports pt does have an appointment there but that it's not for a while and they were wondering about getting her in somewhere sooner d/t risk of infection while receiving treatment. SW also recommended [facility]. Son reports they have attempted to schedule with them but they will not take Medicaid. Son reports that he will continue looking and is willing to travel to [place] or [place] with pt if needed. Sw to explore [...] tab: Yes JOSÉ Ferguson-Naveen documented in this encounterMer[facility]04-02-2025 [facility]04-02-2025 History of Present illness Narrative* Escobar Atkins LSW - 01/27/2025 3:36 PM EDT Value Based Social Work Progress Note Provider Action / FYI PCP Action none Date of Service: 01/27/2025 Patient identified by name/: No Referral Source: Referral Patient Outreach: Initial Mode of Outreach: Phone Call Response Time: Unable to reach (1st Attempt) Left message by: Voicemail VICKY Barboza January 27, 2025 3:36 PM documented in this encounterMercy Health Perrysburg Hospital04-02-2025 History of Present illness Narrative* Oma Linton RN - 01/27/2025 11:34 AM EDT Patient teaching was completed over the phone. Oma Linton RN Sales Merchandising Specialist Pre Chemo Patient identified by name and date of . YES Confirmed date and time for chemotherapy ? YES Other appointments (labs, imaging) discussed? 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 This nurse will update social work professor on issueand ask for her assistance. Medication reviewed. Patient has stopped taking ASA. Oma Linton RN ONCOLOGY PATIENT EDUCATION NOTE TOPIC: Chemotherapy, [...] 55 minutes REFERRAL (RECOMMENDATION): Social Work, Carl Anguiano to call later today and help them find a dentistthat will take their insurance. 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 [facility] - CHEMO ED 01/28/2025 in [facility] with TREATMENT RM 6 V[facility] - CBC/START QMO GEMZAR ABRAXANE/D1/C1/6* 01/28/2025 in LAB [facility] MOB with LAB [facility] MOB - CBC* 02/01/2025 in FAMP [facility] with HENOK MARTINEZ - Hospital discharge follow up, High risk 02/04/2025 [facility] 234 BEDS AT THE [facility] with TREATMENT RM 8 COUNTS INCLUDE 234 BEDS AT THE [facility] - D8 GEMZAR ABRAXAZANE/LAB EARLY* 02/05/2025 in LAB COUNTS INCLUDE 234 BEDS AT THE [facility] MOB with LAB COUNTS INCLUDE 234 BEDS AT THE [facility] MOB - CBC* 02/12/2025 in LAB COUNTS INCLUDE 234 BEDS AT THE [facility] MOB with LAB COUNTS INCLUDE 234 BEDS AT THE [facility] MOB - CBC* 02/12/2025 in VIRAJ COUNTS INCLUDE 234 BEDS AT THE [facility] with TREATMENT RM 6 VIRAJ COUNTS INCLUDE 234 BEDS AT THE [facility] - D15 GEMZAR ABRAXANE/LAB EARLY* 02/23/2025 in LAB COUNTS INCLUDE 234 BEDS AT THE [facility] MOB with LAB COUNTS INCLUDE 234 BEDS AT THE [facility] MOB - CBC/CMP* [facility] - OV/LAB EARLY/CHEMO 02/24* [place] [facility] QMO GEMZAR ABRAXANE/C2-6/LAB&OV 02/23* [facility] 9 V[facility]AJ COUNTS INCLUDE 234 BEDS AT THE [facility] - D8 GEMZAR ABRAXANE/LAB EARLY* 03/03/2025 in LAB COUNTS INCLUDE 234 BEDS AT THE [facility] MOB with LAB COUNTS INCLUDE 234 BEDS AT THE [facility] MOB - CBC* 03/10/2025 in LAB COUNTS INCLUDE 234 BEDS AT THE [facility] MOB with LAB COUNTS INCLUDE 234 BEDS AT THE [facility] MOB - CBC* 03/[facility] 15 V[facility]AJ COUNTS INCLUDE 234 BEDS AT THE [facility] - D15 GEMZAR ABRAXAZANE/LAB EARLY* 03/23/2025 in LAB COUNTS INCLUDE 234 BEDS AT THE [facility] MOB with LAB COUNTS INCLUDE 234 BEDS AT THE [facility] MOB - CBC/CMP* [facility] - OV/LAB EARLY/CHEMO 03/25* [place] 03/25/2025 in VIR[facility] COUNTS INCLUDE 234 BEDS AT THE [facility] with TREATMENT RM 6 VIRAJ COUNTS INCLUDE 234 BEDS AT THE [facility] - QMO GEMZAR ABRAXANE/C3-6/LAB&OV 03/23* 03/31/2025 in LAB COUNTS INCLUDE 234 BEDS AT THE [facility] MOB with LAB COUNTS INCLUDE 234 BEDS AT THE [facility] MOB - CBC* 03/31/2025 in VIRAJ COUNTS INCLUDE 234 BEDS AT THE [facility] with TREATMENT RM 8 COUNTS INCLUDE 234 BEDS AT THE [facility] W[facility] - D8 GEMZAR ABRAXANE/LAB EARLY* 04/07/2025 in LAB COUNTS INCLUDE 234 BEDS AT THE [facility] MOB with LAB [facility] MOB - CBC* [facility] GEMZAR ABRAXAZANE/LAB EARLY* Navigation Signature: Kat Cruz MA January 26, 2025 2:55 PM * Danielle Dias RN - 01/26/2025 1:18 PM EDT Transition Care Management (TCM) Initial Outreach PCP Update / Actionable Items Social Work Update / Actionable Items Please contact pt Timothy rayo ([phone]), to discuss resources for food and transportation. Thanks! Navigation Team Update / Actionable Items Please contact pt Timothy rayo ([phone]), to schedule OV with PCP for TCM [...] additional questions or concerns. Patient discharged from [facility] Discharge date: 01/23/25 Admitted for: Jaundice Readmission Risk: 20 Value-Based Contract: ACO Contact: Contact made with patient: Yes Hi, my name is Danielle Dias RN and I am calling from the [facility] on behalf of your Primary Care [...] appropriate pool: Medicare ACM Social Work Pool [[id number]] - Wendy KEVIN MA Follow-Up Appointment: [Appointment / TCM Follow-up within 14 days] I would like to help you schedule a hospital follow-up virtual or telephone visit with your PCP. This is a great way for you to connect with your provider to ensure you have safely transitioned home.If you are agreeable, I will send your request to a drain tiler who will contact and assist you with [...] care topics, and follow-up needed upon discharge. Danielle Dias RN January 26, 2025 1:28 PM documented in this encounterMercy Health [facility]04-01-2025 NoteC[facility]04-01-2025 Telephone encounter Note* Telephone Encounter - Li Allison MA - 01/26/2025 10:58 AM EDT Detailed message left for Timothy informing him to have Telma try otc miralax for 2 days and to call with worsening symptoms. Advised him to call back with any questions or concerns. Li Allison MA [facility]04-01-2025 Miscellaneous Notes* Telephone Encounter - Li [...] included. Henok Martinez MD [facility] [place] Pool2 minutes ago (10:40 AM) [...] to take. Please review and advise. Johnna Mdeina LPN [place] [address]-01-2025 Telephone encounter Note * Telephone Encounter - Li Allison MA - 01/26/2025 10:56 AM EDT Images from the original note were not included. Henok Martinez MD [facility] [place] Pool4 minutes ago (10:52 AM) Try miralax daily otc first. Call if no results in 2 Days or if anything worsens [facility]04-01-2025 Telephone encounter Note* Telephone Encounter - [...] as of yet. Advise. Li Allison MA [facility]04-01-2025 Telephone encounter Note* Telephone Encounter - Li Allison MA - 01/26/2025 10:43 AM EDT Images from the original note were not included. Henok Martinez MD [facility] Pool2 minutes ago (10:40 AM) Any pain or vomiting. What was last bm? Are they using anything at all right now? [facility]04-01-2025 Telephone encounter Note* Telephone Encounter - [...] Please review and advise. Johnna Medina LPN [facility]03-31-2025 Telephone encounter Note* Telephone Encounter - Amanda Fragoso - 01/25/2025 3:12 PM EDT This has been scheduled as directed [facility]03-31-2025 Miscellaneous Notes* Telephone Encounter - Amanda Fragoso - 01/25/2025 3:12 PM EDT This has been scheduled as directed * Telephone Encounter - Rachel Jones - 01/25/2025 9:14 AM EDT Labs today-DONE Chemo Education-SCHEDULED 2 Start Arthur/Abraxane, straight back to start with CBC (3wks on/1 wk off) CBC with each treatment CBC/CMP/OV with each Q 28day cycle Start treatment this week if possible per Elaina documented in this encounterMercy Health [facility] Hospital03-31-2025 Telephone encounter Note * Telephone Encounter - Rachel Jones - 01/25/2025 9:14 AM EDT Labs today-DONE Chemo Education-SCHEDULED 2 Start Arthur/Abraxane, straight back to start with CBC (3wks on/1 wk off) CBC with each treatment CBC/CMP/OV with each Q 28day cycle Start treatment this week if possible per Elaina [place] [address]-31-2025 Telephone encounter Note* Telephone Encounter - Oma Linton RN - 01/25/2025 9:11 AM EDT Met with patient and introduced myself. Patient was given a My Journey binder with chemocare information, office contact information, thermometer, and additional chemotherapy resource booklets. Patient aware this nurse will review on scheduled appointment date. Elaina Linton RN [facility] Work Phone: 1(466) 557-266703-31-2025 Miscellaneous Notes* Telephone Encounter - Oma Linton RN - 01/25/2025 9:11 AM EDT Met with patient and introduced myself. Patient was given a My Journey binder with chemocare information, office contact information, thermometer, and additional chemotherapy resource booklets. Patient aware this nurse will review on scheduled appointment date. Elaina Linton RN documented in this encounterMercy Health [facility] Hospital03-31-2025 Telephone encounter Note * Telephone Encounter - Amanda Fragoso - 01/25/2025 9:08 AM EDT This pt is scheduled. Amanda Fragoso [facility]03-31-2025 Miscellaneous Notes* Telephone Encounter - Amanda Fragoso - 01/25/2025 9:08 AM EDT This pt is scheduled. Amanda Fragoso * Telephone Encounter - Yoni Pulliam DO - 01/24/2025 12:[address] Freeman referring her for new diagnosis of pancreas cancer. Next new patient appointment with either me or Dr. Yusuf. Yoni Pulliam DO documented in this encounterMercy Health [facility]sburg Hospital03-31-2025 NoteC[facility]03-31-2025 History of Present illness Narrative* Juan Miguel Yusuf MD - 01/25/2025 8:35 AM EDT HISTORY OF PRESENT ILLNESS: Telma Tineo is a 84 year old female presented with painless jaundice, admitted initially at [facility], transferred for further work up at [facility]. Saw hepatobiliary surgery there, noted pancreatic [...] Syringe-Needle U-100 0.5 mL 31 gauge x / 1 Each two times a day. blood sugar diagnostic test strip Use with blood glucose test 2 times daily, Insulin Dep? Yes Lancets Use with blood glucose test 2 times daily. Insulin Dep? Yes alcohol swabs Use with blood glucose test 2 times daily. Insulin Dep? Yes Blood-Glucose Meter,Continuous (FREESTYLE TOLU 3 READER) [facility] Use to check blood sugar at least four (4) times daily. Blood-Glucose Sensor (FREESTYLE TOLU 3 PLUS SENSOR) benjamin Apply new sensor every fifteen (15) days to upper arm. [Paused] ELIQUIS 5 mg tab(s) Take 5 mg by mouth two times a day. Blood Pressure Test Kit-Large (Villij ARM BP MONITOR) 1 Each once daily. [...] which included preparing to see the patient, gyyj-sa-twna patient care, completing clinical documentation, obtaining and/or reviewing separately obtained history, counseling and educating the patient/family/caregiver, ordering medications, nicko ts, or procedures, communicating with other HCPs (not separately reported), independently interpreting results (not separately reported), communicating results to the patient/family/caregiver, and care coordination (not separately reported). Electronically Signed: Juan Miguel Yusuf MD January 25, 2025 8:35 AM documented in this encounterMercy Health Perrysburg Hospital03-30-2025 Telephone encounter Note * Telephone Encounter - Yoni Pulliam DO - 01/24/2025 12:[address] Freeman referring her for new diagnosis of pancreas cancer. Next new patient appointment with either me or Dr. Yusuf. Yoni Pulliam DO [facility] Work Phone: 1(622) 256-276303-29-2025 [facility]03-28-2025 [facility]03-28-2025 [facility] 01-21-2025 [facility]03-27-2025 Telephone encounter Note* Telephone Encounter - Amanda Fragoso - 01/21/2025 3:00 PM EDT Spoke w pt, she is hoping to be d/c today, she is schedule at 830am on Thursday 01/[address] Yusuf.Ok per nurse. Amanda Fragoso [facility]03-27-2025 Miscellaneous Notes* Telephone Encounter - Amanda Fragoso - 01/21/2025 3:00 PM EDT Spoke w pt, she is hoping to be d/c today, she is schedule at 830am on Thursday 01/[address] Yusuf.Ok per nurse. Amanda Fragoso * Telephone Encounter - Azra Hobbs LPN - 01/21/2025 2:[address] EDT Spoke with Dr. Yusuf, he will see this pt. PSS please reach out to pt. To get scheduled. Per Dr. Arroyo You can use multiple slots that are equal to 60 mins for scheduling New pt. Azra Hobbs LPN * Telephone Encounter - Guerline Bean - 01/21/2025 2:17 PM EDT Received email from Dr Freeman advising below: Patient above was seen at [facility] for obstructive jaundice. 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 She lives in [place]- in fact, she was transferred from [facility]. She is believed to have localized disease, but given her age of 84, patient is unsure whether she would pursue aggressive treatment. Ivy placed a referral to Hematology/Oncology at [place], and am emailing you here in the hopes of expediting scheduling of her appointment. We did discuss options of neoadjuvant chemotherapy as wellas hospice. Of note, patient is also scheduled to see our surgical oncologist Dr. Bazzi in early January. Please review and advise! Dr Yusuf and Dr Pulliam were also copied on this email * Telephone Encounter - Ashutosh Freeman MD - 01/21/2025 1:40 PM EDT Entered referral for oncology follow-up at [place]. documented in this encounterMercy Health Perrysburg Hospital03-27-2025 Telephone encounter Note * Telephone Encounter - Azra Hobbs LPN - 01/21/2025 2:[address] EDT Spoke with Dr. Yusuf, he will see this pt. PSS please reach out to pt. To get scheduled. Per Dr. Arroyo You can use multiple slots that are equal to 60 mins for scheduling New pt. Azra Hobbs LPN [facility]03-27-2025 Telephone encounter Note* Telephone Encounter - Guerline Bean - 01/21/2025 2:17 PM EDT Received email from Dr Freeman advising below: Patient above was seen at [facility] for obstructive jaundice. 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 She lives in [place]- in fact, she was transferred from [facility]. She is believed to have localized disease, but given her age of 84, patient is unsure whether she would pursue aggressive treatment. Ivy placed a referral to Hematology/Oncology at [place], and am emailing you here in the hopes of expediting scheduling of her appointment. We did discuss options of neoadjuvant chemotherapy as wellas hospice. Of note, patient is also scheduled to see our surgical oncologist Dr. Bazzi in early January. Please review and advise! Dr Yusuf and Dr Pulliam were also copied on this email [facility]03-27-2025 Telephone encounter Note* Telephone Encounter - Ashutosh Freeman MD - 01/21/2025 1:40 PM EDT Entered referral for oncology follow-up at [place]. [facility]03-26-2025 [facility]03-26-2025 Telephone encounter Note* Telephone Encounter - Shabnam Shah LPN - 01/20/2025 2:11 PM EDT Notified Timothy. [facility]03-26-2025 Miscellaneous Notes* Telephone Encounter - Shabnam Shah LPN - 01/20/2025 2:11 PM EDT Notified Timothy. * Telephone Encounter - Henok Martinez MD - 01/20/2025 10:27 AM EDT Rx sent * Telephone Encounter - [place] Dahlia Barreto - 01/19/2025 1:37 PM EDT Timothy, son called again and he stated that [facility] told him they can no longer bill medicare for diabetic CGM. They told him to have the prescriptions sent to [facility] [place]. Please notify Timothy once sent. * Telephone Encounter - Henok Martinez MD - 01/19/2025 11:50 AM EDT Let them know rx sent. If there is anything else we can do please let us know * Telephone Encounter - [place] Dahlia Barreto - 01/19/2025 11:16 AM EDT Telma is a patient of Henok Martinez MD today girma Aguirre called and stated his mother is currently in the hospital and the doctor at the hospital is requesting PCP order the Tolu 3 CGM system. Please send to [facility] [place]. Please notify son once completed. Patient has been identified by name and birthdate. Duration of symptoms: N/A Person calling: son: Timothy Call patient at: on cell Was an appointment scheduled: No Closing statement: Results or non-symptom based questions: Thank you for calling [facility], your call will be returned within the next business day. Dahlia Barreto documented in this encounterMercy Health Perrysburg Hospital03-26-2025 [facility]03-26-2025 [facility]03-26-2025 Telephone encounter Note* Telephone Encounter - Henok Martinez MD - 01/20/2025 10:27 AM EDT Rx sent [facility]03-26-2025 [facility]03-25-2025 Telephone encounter Note* Telephone Encounter - Dahlia Guevara - 01/19/2025 1:37 PM EDT girma Aguirre called again and he stated that [facility] told him they can no longer bill medicare for diabetic CGM. They told him to have the prescriptions sent to [facility] [place]. Please notify Timothy once sent. [facility]03-25-2025 [facility]03-25-2025 Telephone encounter Note* Telephone Encounter - Henok Martinez MD - 01/19/2025 11:50 AM EDT Let them know rx sent. If there is anything else we can do please let us know [facility]03-25-2025 Telephone encounter Note* Telephone Encounter - [place] Dahlia Barreto - 01/19/2025 11:16 AM EDT Telma is a patient of Henok Martinez MD today Timothy, son called and stated his mother is currently in the hospital and the doctor at the hospital is requesting PCP order the [employer] 3 CGM system. Please send to [facility]. Please notify son once completed. Patient has been identified by name and birthdate. Duration of symptoms: N/A Person calling: son: Timothy Call patient at: on cell Was an appointment scheduled: No Closing statement: Results or non-symptom based questions: Thank you for calling [facility], your call will be returned within the next business day. Dahlia Franco Pss [facility]03-24-2025 [facility]03-23-2025 [facility]03-22-2025 [facility]03-22-[address] [facility]03-21-2025 [facility] 01-15-2025 [facility]03-20-2025 [facility] Medical Records Department [address] [place] [address] Discharge Summary 01/14/25 1707 MR#: [id number] Acct: [id number] Name: TELMA TINEO Rep #: [id number] : 1940 84 From: Jose Wu DO PCP: Dr. Henok Martinez MD Status:DIS IN [place] [facility] [id number] Providers Date of Admission: 01/10/25 Date of Discharge: 01/14/25 Primary Care Physician: Dr. Henok Martinez MD Consultations 01/10/25 06:51 Consult: Gastroenterology Routine Consulting Provider: [facility] Reason for Consult: Pancreatic head mass [...] cancer, patient is awaiting a bed in [facility] for further care #2 obstructive jaundice [...] was seen in the emergency room at [facility] with complaints of discoloration of her dmnq-zhowpf-rae yellowing of her eyes. Patient states her [...] transferred to tertiary facility for further care, [facility] agreed to accept the patient but had no beds at the time and so the patient was admitted to [place] [address]. She was seen in consultation by gastroenterology [...] Psych affect normal Patient was discharged to [facility] on 01/15/2025. Medical Records Data Medical Nutrition Assessment Dietitian: Malnutrition (more content not included)...[facility] 01-14-2025 Progress note Author Jose Wu [facility] Note Date/Time January 14, 2025 8:2 3am [facility] Medical Records Department [address] [place] [address] Progress Note - Hospitalist 01/14/25 0821 MR#: [id number] Acct: [id number] Name: TELMA TINEO Rep #:[id number] : 1940 84 From: Jose Wu DO PCP: Dr. Henok Martinez MD Status:ADM I N Location: PA3 NO071-6 Reason for Visit Reason for Visit: Diagnoses [...] received approval for her to betransferred to [facility] for further care at this time Objective [...] 01/13/25 15:38 SB (Rec: 01/13/25 15:38 SB [id number]) Nutrition Malnutrition Evidence of Yes Malnutrition Exists [...] cancer, patient is awaiting a bed in [facility] for further care #2 obstructive jaundice [...] 35 minutes Charges/Coding Visit Charges Inpatient E&M: 92795 Subs Hosp L2 01/14/25 0823 <Electronically signed by Jose Wu DO> Cosigner Signature (if applicable): CC: ~ Signed [facility] Work Phone: 1(681) 649-624503-20-2025 Progress note [facility] Medical Records Department [address] [place] [address] Progress Note - Hospitalist 01/14/25820 MR#: [id number] Acct: [id number] Name: TELMA TINEO Rep #[id number] : 1940 84 From: Jose Wu DO PCP: Dr. Henok Martinez MD Status:ADM I N Location: [place] [address] Reason for Visit Reason for Visit: Diagnoses [...] [facility] further care at this time Objective [...] 01/13/25 15:38 SB (Rec: 01/13/25 15:38 SB [id number]) Nutrition Malnutrition Evidence of Yes Malnutrition Exists [...] cancer, patient is awaiting a bed in [facility] for further care #2 obstructive jaundice [...] of Glucerna shake 3 times daily with Storyvine was ordered Total clinical time spent by myself addressing the patient's medical issues, reviewing all of her data, and collaborating with patient's care team: 35 minutes Charges/Coding Visit Charges Inpatient E&M: 48232 Subs Hosp L2 01/14/25 0823 Cosigner Signature (if applicable): CC: ~ Signed [facility]03-19-2025 Progress note Author Jose Wu [facility] Note Date/Time January 13, 2025 9:3 8am [facility] Medical Records Department [address] [place] [address] Progress Note - Hospitalist 01/13/25 0936 MR#: [id number] Acct: [id number] Name: TELMA TINEO Rep #:[id number] : 1940 84 From: Jose Wu DO PCP: Dr. Henok Martinez MD Status:ADM I N Location: [place] [address] Reason for Visit Reason for Visit: Diagnoses [...] obtained a bed for the patient at [facility] although she has been accepted there. [...] 01/10/25 12:40 SB (Rec: 01/10/25 12:40 SB [id number]) Nutrition Malnutrition Evidence of Yes Malnutrition Exists [...] glucerna shake TID with medpass. Will consult NET SOFTWARE ENGINEER d/t pt reporting difficulty chewing/ swallowing foods. [...] Fluoroscopic services provided for ERCP. Reading Location: [place] [address] Physical Exam Narrative alert, oriented x3, no [...] cancer, patient is awaiting a bed in [facility] for further care, gastroenterology was not [...] 35 minutes Charges/Coding Visit Charges Inpatient E&M: 04870 Subs Hosp L2 01/13/25 0938 <Electronically signed by Jose Wu DO> Cosigner Signature (if applicable): CC: ~ Signed [facility] Work Phone: 1(883) 740-990003-19-2025 Progress note [facility] Medical Records Department [address] [facility] [place] [address] Progress Note - Hospitalist 01/13/2536 MR#: [id number] Acct: [id number] Name: TELMA TINEO Rep #:[id number] : 1940 84 From: Jose Wu DO PCP: Dr. Henok Martinez MD Status:ADM I N Location: [place] [address] Reason for Visit Reason for Visit: Diagnoses [...] obtained a bed for the patient at [facility] although she has been accepted there. [...] 01/10/25 12:40 SB (Rec: 01/10/25 12:40 SB [id number]) Nutrition Malnutrition Evidence of Yes Malnutrition Exists [...] glucerna shake TID with medpass. Will consult NET SOFTWARE ENGINEER d/t pt reporting difficulty chewing/ swallowing foods. [...] Fluoroscopic services provided for ERCP. Reading Location: [place] [address] Physical Exam Narrative alert, oriented x3, no [...] cancer, patient is awaiting a bed in [facility] for further care, gastroenterology was not [...] 35 minutes Charges/Coding Visit Charges Inpatient E&M: 49822 Subs Hosp L2 01/13/25 0976 Cosigner Signature (if applicable): CC: ~ Signed [facility]03-18-2025 Progress note Author Jose Wu [facility] Note Date/Time January 12, 2025 5:0 4pm [facility] Medical Records Department [address] [place] [address] Progress Note - Hospitalist 01/12/25 1700 MR#: [id number] Acct: [id number] Name: TELMA TINEO Rep #:[id number] : 1940 84 From: Jose Wu DO PCP: Dr. Henok Martinez MD Status:ADM I N Location: [place] [address] Reason for Visit Reason for Visit: Diagnoses [...] today, she underwent an ERCP but the galvanizer was unable to cannulate the common bile duct. I talked to the patient's daughter was in the room at the time my examination, I offered to check [facility] to see if they have any beds available, she consented to this but [facility] told me that they are backed up [...] 01/10/25 12:40 SB (Rec: 01/10/25 12:40 SB [id number]) Nutrition Malnutrition Evidence of Yes Malnutrition Exists [...] advanced, order 120ml glucerna shake TID with mention. Will consult NET SOFTWARE ENGINEER d/t pt reporting difficulty chewing/ swallowing foods. [...] Fluoroscopic services provided for ERCP. Reading Location: [place] [address] Physical Exam Narrative alert, oriented x3, no [...] cancer, patient is awaiting a bed in [facility] for further care #2 obstructive jaundice [...] of Glucerna shake 3 times daily with Storyvine was ordered Total clinical time spent by myself addressing the patient's medical issues, reviewing all of her data, and collaborating with patient's care team: 35 minutes Charges/Coding Visit Charges Inpatient E&M: 81572 Subs Hosp L2 01/12/25 1704 <Electronically signed by Jose Wu DO> Cosigner Signature (if applicable): CC: ~ Signed [facility] Work Phone: 1(924) 351-881103-18-2025 Progress note [facility] Medical Records Department [address] [place] [address] Progress Note - Hospitalist 01/12/25 1700 MR#: [id number] Acct: [id number] Name: TELMA TINEO Rep #:[id number] : 1940 84 From: Jose Wu DO PCP: Dr. Henok Martinez MD Status:ADM I N Location: [place] [address]1 Reason for Visit Reason for Visit: Diagnoses [...] today, she underwent an ERCP but the galvanizer was unable tocannulate the common bile duct. I talked to the patient's daughter was in the room at the time my examination, I offered to check [facility] to see if they have any beds available, she consented to this but [facility] told me that they are backed up [...] 01/10/25 12:40 SB (Rec: 01/10/25 12:40 SB [id number]) Nutrition Malnutrition Evidence of Yes Malnutrition Exists [...] glucerna shake TID with medpass. Will consult NET SOFTWARE ENGINEER d/t pt reporting difficulty chewing/ swallowing foods. [...] Fluoroscopic services provided for ERCP. Reading Location: [place] [address] Physical Exam Narrative alert, oriented x3, no [...] cancer, patient is awaiting a bed in [facility] for further care #2 obstructive jaundice [...] 35 minutes Charges/Coding Visit Charges Inpatient E&M: 85867 Subs Hosp L2 01/12/25 1704 Cosigner Signature (if applicable): CC: ~ Signed [facility]03-18-2025 Consult note Author José Escobar [facility] Note Date/Time January 12, 2025 2:0 8pm [facility] Medical Records Department [address] [place] [address] Anesthesia Postop Eval II 01/12/25 1408 MR#: [id number] Acct: [id number] Name: TELMA TINEO Rep #:[id number] : 1940 84 From: José Escobar MD PCP: Dr. Henok Martinez MD Status:ADM I N Y Race: H Location: [place] [address] Anesthesia Postop Eval I Sum Postop Eval Completion status Anesthesia document: Postop Eval 1 completed: Yes Anesthesia Postop Eval I Summary Anesthesia Postop Eval I Summary: Anesthesia Postop Eval I: Assessment Summary Airway patent Yes 01/12/25 13:48 PUTTYING AND CALKING SUPERVISOR.TNES Spontaneous unlabored Yes 01/12/25 13:48 PUTTYING AND CALKING SUPERVISOR.TNES respirations Mental status nausea No 01/12/25 13:48 PUTTYING AND CALKING SUPERVISOR.TNES Vomiting No 01/12/25 13:48 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 Postop Eval I: Fluid Summary Crystalloid volume administer 1,000 01/12/25 13:48 PUTTYING AND CALKING SUPERVISOR.TNES (ml) Colloids volume administered ( ml) Blood Product volume administered (ml) Total IV fluid infused 1,000 01/12/25 13:48 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 Postop Eval I: Summary Notes Anesthesia Complication No 01/12/25 13:48 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 Complication Comment: Post-operative progress note Anesthesia: Postop Eval II Evaluation Mental status: Awake Pain Level: 0 nausea: No Vomiting: No Complications Anesthesia Complication: No 01/12/25 1408 <Electronically signed by José Escobar MD> Date _ José Escobar MD Cosigner Signature: Date CC: ~ Signed [facility] Work Phone: 1(750) 845-200903-18-2025 Consult note Author Jr Kamara [facility] Note Date/Time January 12, 2025 1:4 8pm [facility] Medical Records Department [address] [place] [address] Anesthesia Postop Eval I 01/12/25 1348 MR#: [id number] Acct: [id number] Name: TELMA TINEO Rep #:[id number] : 1940 84 From: Jr RODAS PCP: Dr. Henok Martinez MD Status:ADM I N Y Race: H Location: [place] [address] Anesthesia: Postop Eval I Current Vital Signs [...] Jr Kamara CRNA> Date _ Jr Kamara PUTTYING AND CALKING SUPERVISOR Cosigner Signature: Date CC: ~ Signed [facility] Work Phone: 1(442) 934-274403-18-2025 Radiology Diagnostic study note [facility] Imaging Services [address] [place] [id number] ERCP Biliary/Pancreas MR#: [id number] Acct: [id number] Name: TELMA TINEO Rep #: [id number] : 1940 F 84 From: Maynor Rosario MD PCP: Dr. Henok Martinez MD Status: ADM I N Study:ERCP Biliary/Pancreas Date of Exam: 01/12/25 Exam# [id number] Ordering Dr: Dylan Brown DO PROCEDURE: ERCP BILIARY/PANCREAS 01/12/2025 REASON FOR EXAM: PAIN. ERCP WITH SPY? TECHNIQUE: Fluoroscopic services provided for ERCP. Fluoroscopic time: 110.7 seconds 22.5 mGy 3 images were submitted. COMPARISON: None. FINDINGS: The galvanizer performed the ERCP. Fluoroscopic imaging provided. RAD/ERCP Biliary/Pancreas IMPRESSION: Fluoroscopic services provided for ERCP. Reading Location: [place] [address] CC: Dr. Henok Martinez MD; DO Aster Amato Program Engagement Director: Signed [facility]03-18-2025 Consult note [facility] Medical Records Department [address] [place] [address] Anesthesia Postop Eval II 01/12/25 1408 MR#: [id number] Acct: [id number] Name: TELMA TINEO Rep #:[id number] : 1940 84 From: José Escobar MD PCP: Dr. Henok Martinez MD Status:ADM I N Y Race: H Location: [facility] Anesthesia Postop Eval I Sum Postop Eval Completion status Anesthesia document: Postop Eval 1 completed: Yes Anesthesia Postop Eval I Summary Anesthesia Postop Eval I Summary: Anesthesia Postop Eval I: Assessment Summary Airway patent Yes 01/12/25 13:48 PUTTYING AND CALKING SUPERVISOR.TNES Spontaneous unlabored Yes 01/12/25 13:48 PUTTYING AND CALKING SUPERVISOR.TNES respirations Mental status nausea No 01/12/25 13:48 PUTTYING AND CALKING SUPERVISOR.TNES Vomiting No 01/12/25 13:48 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 Postop Eval I: Fluid Summary Crystalloid volume administer 1,000 01/12/25 13:48 PUTTYING AND CALKING SUPERVISOR.TNES (ml) Colloids volume administered ( ml) Blood Product volume administered (ml) Total IV fluid infused 1,000 01/12/25 13:48 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 Postop Eval I: Summary Notes Anesthesia Complication No 01/12/25 13:48 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 Complication Comment: Post-operative progress note Anesthesia: Postop Eval II Evaluation Mental status: Awake Pain Level: 0 nausea: No Vomiting: No Complications Anesthesia Complication: No 01/12/25 1408 MD> Date _ José Escobar MD Cosigner Signature: Date CC: ~ Signed [facility]03-18-2025 Progress note Author Mohit Friend [facility] Note Date/Time January 12, 2025 12: 02pm [facility] Medical Records Department [address] [place] [address] Progress Note 01/12/25 1200 MR#: [id number] Acct: [id number] Name: TELMA TINEO Rep #:[id number] : 1940 84 From: Mohit Brown PCP: Dr. Henok Martinez MD Status:ADM I N Location: [place] [address] Progress Note Patient has been n.p.o. for [...] diabetes mellitus with hyperglycemia: QUALIFIERS: Diabetes mellitus nursing home insulin use: without manager terminal use Qualified Code(s): E11.65 - Type 2 [...] 01/12/25 at 1202 Visit Charges Inpatient E&M: 25004 Subs Hosp L1 01/12/25 1202 <Electronically signed by Mohit magaña DO> Date _ Mohit Brown DO Cosigner Signature (if applicable): Date cc: ~* Signed [facility] Work Phone: 1(372) 391-702803-18-2025 Consult note [facility] Medical Records Department [address] [place] [address] Anesthesia Postop Eval I 01/12/25 1348 MR#: [id number] Acct: [id number] Name: TELMA TINEO Rep #:[id number] : 1940 84 From: Jr RODAS PCP: Dr. Henok Martinez MD Status:ADM I N Y Race: H Location: [place] [address] Anesthesia: Postop Eval I Current Vital Signs Temperature: 97.7 F Pulse Rate: 81 Blood Pressure: 143/77 Respiratory Rate: 16 Pulse Ox: 96 Assessment Airway patent: Yes Spontaneous unlabored respirations: Yes nausea: No Vomiting: No Anesthesia Complication: No Fluid Hydration Crystalloid volume administer (ml): 1,000 Total IV fluid infused: 1,000 Progress Note Anesthesia document: Postop Eval 1 completed: Yes 01/12/25 1348 PUTTYING AND CALKING SUPERVISOR> Date _ Jr Kamara PUTTYING AND CALKING SUPERVISOR Cosigner Signature: Date CC: ~ Signed [facility]03-18-2025 Procedure note [facility] Medical Records Department [address] [place] [address] ERCP Report MR#: [id number] Acct: [id number] Name: TELMA TINEO Rep #:[id number] : 1940 84 From: Mohit Brown DO [...] hour 8 minutes 42 seconds Findings: The cable television line technician film was normal. The bile duct could not be cannulated with the short-nosed traction sphincterotome. No biopsies or other specimens were collected for this exam. Impression: - No specimens collected. Procedure Code(s): --- Professional --- 52069, Esophagogastroduodenoscopy, flexible, transoral; diagnostic, including collection of specimen(s) by brushing or washing, when performed (separate procedure) CPT copyright 2021 [employer]. All rights reserved. The codes documented in this report are preliminary and upon excavator operator review may be revised to meet current compliance requirements. Mohit Brown DO 01/12/2025 1:41:52 PM This report has been signed electronically. Number of Addenda: 0 Note Initiated On: 01/12/2025 11:51 AM 01/12/25 1342 Date _ Mohit Brown DO Cosigner Signature: Date (if indicated) CC: Dr. Henok Martinez MD; Mohit Brown DO ~ Date Dictated: 01/12/25 1151 Date Transcribed: Program Engagement Director: RF Signed [facility]03-18-2025 Procedure note [facility] Medical Records Department [address] [place] [address] Operative Report - CC Letter MR#: [id number] Acct: [id number] Name: TELMA TINEO Rep #:[id number] : 1940 84 From: Mohit Brown DO PCP: Dr. Henok Martinez MD Status:ADM I N 01/12/2025 Henok Martinez Re : ERCP procedure for Telma Martinez [...] PM This report has been signed electronically. 01/12/251341 Date _ Mohit Brown DO Cosigner Signature: Date (if indicated) CC: Dr. Oniel Golden, DO; Dr. Keenan Celeste, DO; Dr. Jose uW, DO; Dr. Henok Martinez MD ~ Date Dictated: 01/12/25 1151 Date Transcribed: Program Engagement Director: MARTHA Hale [facility]03-18-2025 Consult note Author José Escobar [facility] Note Date/Time January 12, 2025 11: 00am [facility] Medical Records Department [address] [place] [address] Pre-Anesthesia Evaluation 01/12/25 1049 MR#: [id number] Acct: [id number] Name: TELMA TINEO Rep #:[id number] : 1940 84 From: José Escobar MD PCP: Dr. Henok Martinez MD Status:ADM I N Y Race: H Location: [place] [address] ASA Classification* ASA Classification ASA Classification: 4 [...] Procedure(s): ERCP Anesthesia History Anesthesia History - die baker: Anesthesia History - die baker Hx Hospitalization Any Problems With Anesthesia No [...] take am of surgery PONV PONV - die baker: PONV - die baker Female HX of Motion Sickness HX of N/V After Surgery Non-Smoker Duration of Surgery greater than 60 minutes Number of Risk Factors PONV Score Height & Weight Height & Weight: Anesthesia: Height & Weight Height 5 ft 01/12/25 08:02 Weight: 67.2 kg 01/12/25 08:02 Body Mass Index (BMI) 28.9 01/12/25 08:02 Respiratory Assessment Respiratory Assessment - die baker: Respiratory Tract Infection Hx - die baker Hx Respiratory Tract Infection No 01/11/25 21:37 STOP Sleep Apnea STOP Sleep Apnea - die baker: STOP Sleep Apnea - die baker Hx Hypertension Yes 01/11/25 11:23 Hx Sleep [...] Tobacco Use History Tobacco Use History - die baker: Tobacco Use History - die baker Tobacco Use Smoking Status Former smoker 01/10/25 02:58 Hx Tobacco Use No 01/10/25 02:58 Years Smoking Packs Smoked per Day Smoking Cessation Date was No - quit smoking greater 01/10/25 02:58 within the last 15 years than 15 years ago Hx Smoking Cessation Date 10/28/77 01/10/25 02:58 Hx Smoking Cessation No 01/10/25 02:58 Counseling Hematologic Medial History Hematologic Hx - die baker: Hematologic Medical Hx - cigar brander Hx of Blood Transfusion No 01/10/25 02:58 Hx of Transfusion in last 3 No 01/10/25 02:58 Months Date of Last Transfusion (if within last 3 months) Ever experience any problems No 01/10/25 02:58 with transfusion(s)? Specify any problems Hx of Preganancy in last 3 N/A 01/10/25 02:58 Months Nurse Filling Out Transfusion SWERTENBER 01/10/25 02:58 & Questions: Date: 01/10/25 01/10/25 02:58 Time: 02:58 01/10/25 02:58 Patient unable to answer at this time (ie. 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 Hx Now No 01/11/25 21:37 Gestational Age [...] 100 Unit/Ml Insuln.Pen SC Not Given ACHS [facility] Protocol Ketorolac Tromethamine 15 mg 01/10/25 02:57 Ketorolac 15 Mg/Ml Vial IV 01/15/25 02:57 Q8H PRN PRN Pain 1- 5/10 or Fever Losartan Potassium 100 mg 01/10/25 10:00 01/12/25 09:51 Losartan Potassium 100 Mg Tablet PO Not Given DAILY [facility] Protocol Magnesium Hydroxide 30 ml 01/10/25 02:57 Magnesium Hydroxide 30 Ml Udc PO DAILY PRN PRN Constipation Melatonin 3 mg 01/10/25 02:57 Melatonin 3 Mg Tablet PO QHS PRN PRN INSOMNIA Metoprolol Tartrate 50 mg 01/10/25 10:00 01/12/25 09:45 Metoprolol Tartrate 50 Mg Tablet PO 50 mg BID [facility] Administration Protocol Morphine Sulfate 2 mg 01/10/25 02:57 Morphine 2 Mg/Ml Syringe IV Q4H PRN PRN Pain Score 6-10 Multivitamins 1 tablet 01/10/25 08:00 01/12/25 07:28 Multivitamins,Therapeutic Tablet PO [facility] Nutritional Formula (Lactose Free) 120 ml 01/10/25 17:00 01/12/25 10:07 Glucerna Shake 120 Ml Liquid PO Not Given TIDCM [facility] Ondansetron HCl 4 mg 01/10/25 02:57 Ondansetron 4 Mg/2 Ml Vial IV Q6H PRN PRN NAUSEA/VOMITING Pantoprazole Sodium 40 mg 01/12/25 10:00 01/12/25 07:28 Pantoprazole Sodium 40 Mg Tablet PO Not Given DAILY [facility] Sodium Chloride 10 - 40 ml [...] MD Cosigner Signature: Date CC: ~ Signed [facility] Work Phone: 1(798) 199-304303-18-2025 Progress note [facility] Medical Records Department [address] [place] [address] Progress Note 01/12/25 1200 MR#: [id number] Acct: [id number] Name: TELMA TINEO Rep #:[id number] : 1940 84 From: Mohit Brown DO PCP: Dr. Henok Martinez MD Status:ADM I N Location: [place] [address] Progress Note Patient has been n.p.o. for [...] diabetes mellitus with hyperglycemia: QUALIFIERS: Diabetes mellitus manager terminal insulin use: without nursing home use Qualified Code(s): E11.65 - Type [...] for suspected pancreatic cancer. 01/12/25 1201 Mohit Bullocker Signature (if applicable): CC: ~ Signed ADDENDUM by Mohit Brown DO on 01/12/25 at 1202 Visit Charges Inpatient E&M: 19128 Subs Hosp L1 01/12/25 1202 d DO> Date _ Mohit Brown DO Cosigner Signature (if applicable): Date cc: ~* Signed [facility]03-18-2025 Consult note [facility] Medical Records Department [address] [place] [address] Pre-Anesthesia Evaluation 01/12/25 1049 MR#: [id number] Acct: [id number] Name: TELMA TINEO Rep #:[id number] : 1940 84 From: José Escobar MD PCP: Dr. Henok Martinez MD Status:ADM I N Y Race: H [place] [facility] ASA Classification* ASA Classification ASA Classification: [...] Procedure(s): ERCP Anesthesia History Anesthesia History - die baker: Anesthesia History - die baker Hx Hospitalization Any Problems With Anesthesia No [...] take am of surgery PONV PONV - die baker: PONV - die baker Female HX of Motion Sickness HX of N/V After Surgery Non-Smoker Duration of Surgery greater than 60 minutes Number of Risk Factors PONV Score Height & Weight Height & Weight: Anesthesia: Height & Weight Height 5 ft 01/12/25 08:02 Weight: 67.2 kg 01/12/25 08:02 Body Mass Index (BMI) 28.9 01/12/25 08:02 Respiratory Assessment Respiratory Assessment - die baker: Respiratory Tract Infection Hx - die baker Hx Respiratory Tract Infection No 01/11/25 21:37 STOP Sleep Apnea STOP Sleep Apnea - die baker: STOP Sleep Apnea - die baker Hx Hypertension Yes 01/11/25 11:23 Hx Sleep [...] Tobacco Use History Tobacco Use History - die baker: Tobacco Use History - die baker Tobacco Use Smoking Status Former smoker 01/10/25 02:58 Hx Tobacco Use No 01/10/25 02:58 Years Smoking Packs Smoked per Day Smoking Cessation Date was No - quit smoking greater 01/10/25 02:58 within the last 15 years than 15 years ago Hx Smoking Cessation Date 10/28/77 01/10/25 02:58 Hx Smoking Cessation No 01/10/25 02:58 Counseling Hematologic Medial History Hematologic Hx - die baker: Hematologic Medical Hx - cigar brander Hx of Blood Transfusion No 01/10/25 02:58 Hx of Transfusion in last 3 No 01/10/25 02:58 Months Date of Last Transfusion (if within last 3 months) Ever experience any problems No 01/10/25 02:58 with transfusion(s)? Specify any problems Hx of Preganancy in last 3 N/A 01/10/25 02:58 Months Nurse Filling Out Transfusion SWEBRYAN 01/10/25 02:58 & Questions: Date: 01/10/25 01/10/25 02:58 Time: 02:58 01/10/25 02:58 Patient unable to answer at this time (ie. 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 Hx Now No 01/11/25 21:37 Gestational Age [...] 10 Mg Tablet PO Not Given DAILY [facility] Protocol Enoxaparin Sodium 40 mg 01/10/25 [...] 100 Mg Tablet PO Not Given DAILY [facility] Protocol Magnesium Hydroxide 30 ml 01/10/25 02:57 Magnesium Hydroxide 30 Ml Udc PO DAILY PRN PRN Constipation Melatonin 3 mg 01/10/25 02:57 Melatonin 3 Mg Tablet PO QHS PRN PRN INSOMNIA Metoprolol Tartrate 50 mg 01/10/25 10:00 01/12/25 09:45 Metoprolol Tartrate 50 Mg Tablet PO 50 mg BID [facility] Administration Protocol Morphine Sulfate 2 mg 01/10/25 02:57 Morphine 2 Mg/Ml Syringe IV Q4H PRN PRN Pain Score 6-10 Multivitamins 1 tablet 01/10/25 08:00 01/12/25 07:28 Multivitamins,Therapeutic Tablet PO [facility] Nutritional Formula (Lactose Free) 120 ml 01/10/25 17:00 01/12/25 10:07 Glucerna Shake 120 Ml Liquid PO Not Given TIDCM [facility] Ondansetron HCl 4 mg 01/10/25 02:57 Ondansetron 4 Mg/2 Ml Vial IV Q6H PRN PRN NAUSEA/VOMITING Pantoprazole Sodium 40 mg 01/12/25 10:00 01/12/25 07:28 Pantoprazole Sodium 40 Mg Tablet PO Not Given DAILY [facility] Sodium Chloride 10 - 40 ml [...] MD Cosigner Signature: Date CC: ~ Signed [facility]03-17-2025 History and physical note Author Mohitlori Brown [facility] Note Date/Time January 11, 2025 8:1 9pm [facility] Medical Records Department [address] [place] [address] History & Physical Exam 01/11/252012 MR#: [id number] Acct: [id number] Name: TELMA TINEO Rep #:[id number] : 1940 84 From: Mohit Brown DO PCP: Dr. Henok Martinez MD Status:ADM I N [place] [id number] - General General Date of Admission: [...] on admission. Her mother of pancreatic cancer. [facility] Medical History Neck pain, bilateral History of [...] 01/10/25 12:40 SB (Rec: 01/10/25 12:40 SB [id number]) Nutrition Malnutrition Evidence of Yes Malnutrition Exists [...] glucerna shake TID with medpass. Will consult NET SOFTWARE ENGINEER d/t pt reporting difficulty chewing/ swallowing foods. [...] % (Auto) 62.1, Lymph % (Auto) 22.9, [place] % (Auto) 11.6 H, Eos % (Auto) [...] diabetes mellitus with hyperglycemia: QUALIFIERS: Diabetes mellitus nursing home insulin use: without manager terminal use Qualified Code(s): E11.65 - Type 2 [...] pancreatic cancer. Charges/Coding Visit Charges Inpatient E&M: 86963 Init Hosp L3 01/11/252018 <Electronically signed by Mohit Brown DO> Cosigner Signature (if applicable): CC: Dr. Henok Martinez MD; Mohit Brown DO~ Signed [facility] Work Phone: 1(465) 967-897003-17-2025 History and physical note [facility] Medical Records Department [address] [place] [address] History & Physical Exam 01/11/252012 MR#: [id number] Acct: [id number] Name: TELMA TINEO Rep #:[id number] : 1940 84 From: Mohit Brown DO PCP: Dr. Henok Martinez MD Status:ADM I N Location: [place] [address]-1 HPI - General General Date of Admission: [...] on admission. Her mother of pancreatic cancer. [facility] Medical History Neck pain, bilateral History of [...] 01/10/25 12:40 SB (Rec: 01/10/25 12:40 SB [id number]) Nutrition Malnutrition Evidence of Yes Malnutrition Exists [...] glucerna shake TID with medpass. Will consult NET SOFTWARE ENGINEER d/t pt reporting difficulty chewing/ swallowing foods. [...] % (Auto) 62.1, Lymph % (Auto) 22.9, [place] % (Auto) 11.6 H, Eos % (Auto) [...] diabetes mellitus with hyperglycemia: QUALIFIERS: Diabetes mellitus manager terminal insulin use: without nursing home use Qualified Code(s): E11.65 - Type [...] pancreatic cancer. Charges/Coding Visit Charges Inpatient E&M: 33407 Init Hosp L3 01/11/252018 Cosigner Signature (if applicable): CC: Dr. Henok Martinez MD; Mohit Brown DO~ Signed [facility]03-17-2025 [facility] Medical Records Department [address] [place] [address] History Physical Exam 01/11/252012 MR#: [id number] Acct: [id number] Name: TELMA TINEO Rep #: [id number] : 1940 84 From: Mohit Brown DO PCP: Dr. Henok Martinez MD Status:ADM [place] [facility] [place] HPI - General General Date of Admission: [...] on admission. Her mother of pancreatic cancer. [facility] Medical History Neck pain, bilateral History of [...] Source Monitor Monitor Bl (more content not included)...[facility]03-17-2025 Progress note Author Jose Wu [facility] Note Date/Time January 11, 2025 3:4 0pm [facility] Medical Records Department [address] [place] [address] Progress Note - Hospitalist 01/11/25 1534 MR#: [id number] Acct: [id number] Name: TELMA TINEO Rep #:[id number] : 1940 84 From: Jose Wu DO PCP: Dr. Henok Martinez MD Status:ADM I N Location: PA3 PL910-0 Reason for Visit Reason for Visit: Diagnoses [...] bed for the patient be transferred to [facility]. Objective Data Objective Data Vital Signs: Vital [...] 01/10/25 12:40 SB (Rec: 01/10/25 12:40 SB [id number]) Nutrition Malnutrition Evidence of Yes Malnutrition Exists [...] glucerna shake TID with medpass. Will consult NET SOFTWARE ENGINEER d/t pt reporting difficulty chewing/ swallowing foods. [...] % (Auto) 62.1, Lymph % (Auto) 22.9, [place] % (Auto) 11.6 H, Eos % (Auto) [...] cancer, patient is awaiting a bed in [facility] for further care #2 obstructive jaundice [...] 35 minutes Charges/Coding Visit Charges Inpatient E&M: 26528 Subs Hosp L2 01/11/25 1540 <Electronically signed by Jose Wu DO> Cosigner Signature (if applicable): CC: ~ Signed [facility] Work Phone: 1(871) 145-845003-17-2025 Progress note [facility] Medical Records Department [address] [place] [address] Progress Note - Hospitalist 01/11/25 1534 MR#: [id number] Acct: [id number] Name: TELMA TINEO Rep #:[id number] : 1940 84 From: Jose Wu DO PCP: Dr. Henok Martinez MD Status:ADM I N Location: [place] [address] Reason for Visit Reason for Visit: Diagnoses [...] bed for the patient be transferred to [facility]. Objective Data Objective Data Vital Signs: Vital [...] 01/10/25 12:40 SB (Rec: 01/10/25 12:40 SB [id number]) Nutrition Malnutrition Evidence of Yes Malnutrition Exists [...] glucerna shake TID with medpass. Will consult NET SOFTWARE ENGINEER d/t pt reporting difficulty chewing/ swallowing foods. [...] % (Auto) 62.1, Lymph % (Auto) 22.9, [place] % (Auto) 11.6 H, Eos % (Auto) [...] cancer, patient is awaiting a bed in [facility] for further care #2 obstructive jaundice [...] 35 minutes Charges/Coding Visit Charges Inpatient E&M: 70173 Subs Hosp L2 01/11/25 1540 Cosigner Signature (if applicable): CC: ~ Signed [facility]03-16-2025 Progress note Author Keenan Celeste [facility] Note Date/Time January 10, 2025 11: 47am [facility] Medical Records Department [address] [place] [address] Progress Note - Hospitalist 01/10/25 0741 MR#: [id number] Acct: [id number] Name: TELMA TINEO Rep #:[id number] : 1940 84 From: Keenan Celeste DO PCP: Dr. Henok Martinez MD Status:ADM I N Location: [place] [address] Reason for Visit Reason for Visit: Diagnoses [...] % (Auto) 65.7, Lymph % (Auto) 21.5, [place] % (Auto) 10.8 H, Eos % (Auto) [...] % (Auto) 66.7, Lymph % (Auto) 19.4, [place] % (Auto) 12.1 H, Eos % (Auto) [...] report) Advance diet. Awaiting on transfer to [facility]. PLAN: Plan DM2: * uncontrolled: * check a1c * SSI. * hold metformin as pt received IV contrast. HTN: stable. Continue metoprolol, losartan, amlodipine. VTE prophylaxis: enoxaparin. Charges/Coding Visit Charges Inpatient E&M: 16426 Subs Hosp L2 01/10/25 1147 <Electronically signed by Keenan Celeste DO> Cosigner Signature (if applicable): CC: ~ Signed [facility] Work Phone: 1(246) 228-885003-16-2025 Progress note [facility] Medical Records Department [address] [place] [address] Progress Note - Hospitalist 01/10/25 0741 MR#: [id number] Acct: [id number] Name: TELMA TINEO Rep #:[id number] : 1940 84 From: Keenan Celeste DO PCP: Dr. Henok Martinez MD Status:ADM I N Location: [place] [address] Reason for Visit Reason for Visit: Diagnoses [...] % (Auto) 65.7, Lymph % (Auto) 21.5, [place] % (Auto) 10.8 H, Eos % (Auto) [...] % (Auto) 66.7, Lymph % (Auto) 19.4, [place] % (Auto) 12.1 H, Eos % (Auto) [...] CTreport) Advance diet. Awaiting on transfer to [facility]. PLAN: Plan DM2: * uncontrolled: * check a1c * SSI. * hold metformin as pt received IV contrast. HTN: stable. Continue metoprolol, losartan, amlodipine. VTE prophylaxis: enoxaparin. Charges/Coding Visit Charges Inpatient E&M: 02880 Subs Hosp L2 01/10/25 1147 Cosigner Signature (if applicable): CC: ~ Signed [facility]03-16-2025 History and physical note Author Oniel Hernandez [facility] Note Date/Time January 10, 2025 6:5 7am [facility] Medical Records Department [address] [place] [address] H&P Exam - Hospitalist 01/10/25 0039 MR#: [id number] Acct: [id number] Name: TELMA TINEO Rep #:[id number] : 1940 84 From: Oniel Rojas DO PCP: Dr. Henok Martinez MD Status:ADM I N Location: [address] HPI - General General Date of [...] with chronic neck pain [facility] of [facility]und[facility]. Ms. Tineo reports [...] She was then arranged for transfer to [facility] with bed not available at this time so the ER physician is contacted the hospitalist service to admit this patient until such time she can be safely transferred as per the policy of this hospital. She was then admitted to the general medical floor for ongoing care for stay that is expected to extend beyond 2 midnights. [facility] Medical History (Updated 01/10/25 @ 02:[address] Oniel Golden, ) Neck pain, bilateral History of TIA (transient [...] % (Auto) 65.7, Lymph % (Auto) 21.5, [place] % (Auto) 10.8 H, Eos % (Auto) [...] diabetes mellitus with hyperglycemia: QUALIFIERS: Diabetes mellitus manager terminal insulin use: without manager terminal use Qualified Code(s): E11.65 - Type 2 [...] floor until a bed is available at [facility]. Place on clear liquid diet. Start pantoprazole 40 mg IV daily. Give ondansetron IV as needed nausea and vomiting. Give ketorolac IV as needed umic-xp-sbthiaeg (level 1-5/10) pain or fever. Give morphine [...] 75 minutes. Charges/Coding Visit Charges Inpatient E&M: 85905 Init Hosp L3 01/10/25 0657 <Electronically signed by Oniel Golden DO> Cosigner Signature (if applicable): CC: Dr. Oniel Golden DO; Dr. Henok Martinez MD~ Signed [facility] Work Phone: 1(513) 788-123603-16-2025 History and physical note [facility] Medical Records Department [address] [place] [address] H&P Exam - Hospitalist 01/10/25 0039 MR#: [id number] Acct: [id number] Name: ETLMA TINEO Rep #:[id number] : 1940 84 From: Oniel Rojas DO PCP: Dr. Henok Martinez MD Status:ADM I N [facility] General Date of Admission: 01/10/25 Date of [...] with chronic neck pain who presents to [facility] ER complaining of jaundice. Ms. [...] She was then arranged for transfer to [facility] with bed not available at this time so the ER physician is contacted the hospitalist service to admit this patient until such time she can be safely transferred as per the policy of this hospital. She was then admitted to the general medical floor for ongoing care for stay that is expected to extend beyond 2 midnights. [facility] Medical History (Updated 01/10/25 @ 02:15 by [...] Severe anaphylaxis Verified 01/09/25 19:02 tramadol (From Ultra) AdvReac Severe syncope Verified 01/09/25 21:02 Family [...] % (Auto) 65.7, Lymph % (Auto) 21.5, [place] % (Auto) 10.8 H, Eos % (Auto) [...] diabetes mellitus with hyperglycemia: QUALIFIERS: Diabetes mellitus nursing home insulin use: without nursing home use Qualified Code(s): E11.65 - Type [...] floor until a bed is available at [facility]. Place on clear liquid diet. Start pantoprazole 40 mg IV daily. Give ondansetron IV as needed nausea and vomiting. Give ketorolac IV as needed twus-oi-dfynhfxp (level 1-5/10) pain or fever. Give morphine [...] 75 minutes. Charges/Coding Visit Charges Inpatient E&M: 01587 Init Hosp L3 01/10/25 0657 Cosigner Signature (if applicable): CC: Dr. Oniel Golden DO; Dr. Henok Martinez MD~ Signed [facility]03-16-2025 Evaluation note* Diagnosis Onset Date Resolution Status [...] h hyperglycemia acute January 10, 2025 2:16am [facility] Work Phone: 1(107) 681-368603-16-2025 Discharge summary Author Guille Garnica [facility] Note Date/Time January 09, 2025 10: 44pm [facility] Medical Records Department [address] [place] [address] Emergency Department Summary 01/09/25 MR#: [id number] Acct: [id number] Name: TELMA TINEO Rep #:[id number] : 1940 84 From: Guille Garnica MD PCP: Dr. Henok Martinez MD Status:REG E R Location: ED ADDENDUM by Dr. Hung Remy DO on 01/09/25 at 2244 Update 2245 hrs.: Patient was accepted at [facility]. They are stating it is unlikely [...] last few days. No fevers or chills. [facility] Medical History Neck pain, bilateral History [...] Severe anaphylaxis Verified 01/09/25 19:02 tramadol (From UltraViratech) AdvReac Severe syncope Verified 01/09/25 21:02 Family [...] she has normal white count of 6.4, rifmjguftx24.6, hematocrit 37.4, platelet count normal at 171. [...] that her primary care provider is through [facility]. They prefer [facility] As it is in closer proximity, and they are associated with the [facility]. I discussed patient with the transfer [...] % (Auto) 65.7 Lymph % (Auto) 21.5 [place] % (Auto) 10.8 H Eos % (Auto) [...] Other nonacute findings detailed above. [facility] Triage Chief Complaint: [...] MD [Primary Care Provider] - Print Language: Turkmen What to do if you have Problems For any increased pain, shortness of breath, bleeding, nausea or vomiting, chestpain, or any unexpected problems, contact your Primary Care Provider. Call [facility] ([phone]) or report to the closest Emergency Room. Call 911 if necessary. 01/09/252214 <Electronically signed by Guille Garnica MD> Cosigner Signature (if applicable): CC: Dr. Henok Martinez MD ~ Signed [facility] Work Phone: 1(429) 480-463903-16-2025 Discharge summary Author [facility]ille [facility] Note Date/Time January 09, 2025 10: 44pm [facility] Medical Records Department [address] [place] [address] Emergency Department Summary 01/09/25 MR#: [id number] Acct: [id number] Name: TELMA TINEO Rep #:[id number] : 1940 84 From: Guille Garnica MD PCP: Dr. Henok Martinez MD Status:REG E R Location: ED ADDENDUM by Dr. Hung Remy DO on 01/09/25 at 2244 Update 2245 hrs.: Patient was accepted at [facility]. They are stating it is unlikely that a bed will be assigned until at least tomorrow. Per hospital protocol we will wait 6 hours and then I will speak with the hospitalist regarding admission 01/09/254<Electronically signed by Hung Remy DO> Cosigner Signature [...] last few days. No fevers or chills. [facility] Medical History Neck pain, bilateral History [...] she has normal white count of 6.4, nwyexxhdmz56.6, hematocrit 37.4, platelet count normal at 171. [...] that her primary care provider is through [facility]. They prefer [facility] As it is in closer proximity, and they are associated with the [facility]. I discussed patient with the transfer [...] % (Auto) 65.7 Lymph % (Auto) 21.5 [place] % (Auto) 10.8 H Eos % (Auto) [...] nonacute findings detailed above. Reading Location: [facility] Discharge Plan Triage Chief Complaint: Abn Labs [...] MD [Primary Care Provider] - Print Language: Turkmen What to do if you have Problems For any increased pain, shortness of breath, bleeding, nausea or vomiting, chestpain, or any unexpected problems, contact your Primary Care Provider. Call [facility] ([phone]) or report to the closest Emergency Room. Call 911 if necessary. 01/09/252214 <Electronically signed by Guille Garnica MD> Cosigner Signature (if applicable): CC: Dr. Henok Martinez MD ~ Signed [facility] Work Phone: 1(315) 744-912503-15-2025 Discharge summary [facility] Medical Records Department [address] [place] [address] Emergency Department Summary 01/09/25 MR#: [id number] Acct: [id number] Name: TELMA TINEO Rep #:[id number] : 1940 84 From: Guille Garnica MD PCP: Dr. Henok Martinez MD Status:REG E R Location: ED ADDENDUM by Dr. Hung Remy DO on 01/09/25 at 2244 Update 2245 hrs.: Patient was accepted at [facility]. They are stating it is unlikely that a bed will be assigned until at least tomorrow. Per hospital protocol we will wait 6 hours and then I will speak with the hospitalist regarding admission 01/09/25 1388 Cosigner Signature (if applicable): cc: Dr. Henok [...] last few days. No fevers or chills. [facility] Medical History Neck pain, bilateral History [...] she has normal white count of 6.4, ikfekpyefq97.6, hematocrit 37.4, platelet count normal at 171. [...] that her [facility] care provider is [facility], and they are [facility] with the [facility]. I discussed patient with the transfer [...] % (Auto) 65.7 Lymph % (Auto) 21.5 [place] % (Auto) 10.8 H Eos % (Auto) [...] Other nonacute findings detailed above. Reading [facility] Dis[facility] Triage Chief Complaint: [...] MD [Primary Care Provider] - Print Language: Turkmen What to do if you have Problems For any increased pain, shortness of breath, bleeding, nausea or vomiting, chestpain, or any unexpected problems, contact your Primary Care Provider. Call [facility] ([phone]) or report tothe closest Emergency Room. Call 911 if necessary. 01/09/25 1591 Cosigner Signature (if applicable): CC: Dr. Henok Martinez MD ~ Signed [facility]03-15-2025 Radiology Diagnostic study note [facility] Imaging Services [address] [place], [place] [address] Abdomen/Pelvis W IV Cont ONLY MR#: [id number] Acct: [id number] Name: TELMA TINEO Rep #: [id number] : 1940 F 84 From: Daniela Jonas MD PCP: Dr. Henok Martinez MD Status: REG E R Study:Abdomen/Pelvis W IV Cont ONLY Date of E xam: 01/09/25 Exam# [id number] Ordering Dr: Guille Garnica MD PROCEDURE: ABDOMEN/PELVIS [...] Garnica MD; Dr. Henok Martinez MD ~ Program Engagement Director: Signed [facility]03-10-2025 [facility] History of Present illness Narrative* Iona Paul RN - 01/04/2025 1:40 PM EDT CDM [...] Identified Start Date: 12/28/2024 Responsible Staff: Iona Paul RN Support and Services: Assessments No documentation this encounter Interventions No checklist tasks for this episode were completed during this visit, and no tasks for this episodeare pending completion. Iona Paul RN January 04, 2025 1:40 PM documented in [facility] Telephone encounter Note * Telephone Encounter - Virginia Garcia APRN.CNP - 12/15/2024 11:44 AM EST The following approved medication requests have been transmitted electronically. Requested Prescriptions Pending Prescriptions Disp Refills losartan (COZAAR) 100 mg tablet 90 tablet 3 Sig: Take 1 tablet by mouth once daily. Virginia Garcia APRN.CNP [facility]02-18-2025 Miscellaneous Notes* Telephone Encounter - Virginia Garcia APRN.CNP - 12/15/2024 11:44 AM EST The following approved medication requests have been transmitted electronically. Requested Prescriptions Pending Prescriptions Disp Refills losartan (COZAAR) 100 mg tablet 90 tablet 3 Sig: Take 1 tablet by mouth once daily. Virginia Garcia APRN.CNP * Telephone Encounter - Jose Ortiz [...] 15, 2024 10:59 AM documented in this encounterMer[facility]02-18-2025 Telephone encounter Note * Telephone Encounter [...] Ortiz LPN December 15, 2024 10:59 AM [facility]01-21-2025 History of Present illness Narrative* Click, Angelia Trevino APRN.CRATE BUILDER - 11/17/2024 1:00 PM EST Images from [...] evidence of aspiration, Focal indentation along the anteri or mid thoracic esophagus. Seen again in PCP [...] Blood Pressure Test Kit-Large Commonly known as: Villij ARM BP MONITOR 1 Each once daily. [...] mass or definite lymphadenopathy within the chest. Program Engagement Director: PSCB Transcribe Date/Time: Nov 21 2022 4:33P Dictated by : VELASQUEZ BENTON MD This examination was interpreted and the report reviewed and electronically signed by: VELASQUEZ BENTON MD on Nov 21 2022 4:44PM EST Results-Findings * * *Final Report* * * DATE OF EXAM: Nov 20 2022 2:16PM [facility] 0541 - CT CHEST WO IVCON [...] No abnormality in the imaged upper abdomen. Sprinkler Helper (topogram) images: No additional findings. Labs: WBC [...] Neut (k/uL) Date Value 11/05/2024 4.65 Abs [place] (k/uL) Date Value 11/05/2024 0.65 09/25/2021 0.71 [...] and edited and updated as necessary. Angelia Hart, WEIGHER AND CHARGER.NÉSTOR Hernandez spent a total of 30 minutes on the date of the service which included preparing to see the patient, jkcm-es-fegx patient care, completing clinical documentation, performing a medically appropriate examination, counseling and educating the patient/family/caregiver, ordering medications, tests, or p rocedures, and communicating results to the patient/family/caregiver. documented in this encounterMer[facility]01-21-2025 [facility]01-[facility]-2025 NoteC[facility]01-13-2025 NoteHNO ID: [id number] Author: MELIZA PLASENCIA CCC-NET SOFTWARE ENGINEER Service: ? Author Type: Speech Language Pathologist Type: Progress Notes Filed: 11/09/2024 16:07 Note Text: Episode Visit Count: Visit count could not be calculated. Make sure you are using a visit which is associated with an episode. Start of Care Date: 11/09/24 Onset Date: 10/28/24 Patient Identified by Name and Date of : Yes [facility] MODIFIED [...] PO, - Small Bite/Sip, -Reduced bite size NET SOFTWARE ENGINEER Recommendations: Diet, Swallowing Precautions, Discontinue Speech Therapy [...] 0, Mildly Thick Liquids IDDSI Level 2 ([place] Thick), Pureed Solids IDDSI Level 4, Soft [...] 0, Mildly Thick Liquids IDDSI Level 2 ([place] Thick), Pureed Solids IDDSI Level 4, Soft [...] pharyngeal structures, Residue with (more content not included)...[facility] [id number] History of Present illness Narrative* Meliza Plasencia CCC-NET SOFTWARE ENGINEER - 11/09/2024 10:43 AM EST Episode Visit Count: Visit count could not be calculated. Make sure you are using a visit which is associated with an episode. Start of Care Date: 11/09/24 Onset Date: 10/28/24 Patient Identified by Name and Date of : Yes [facility] MODIFIED [...] PO, - Small Bite/Sip, -Reduced bite size NET SOFTWARE ENGINEER Recommendations: Diet, Swallowing Precautions, Discontinue Speech Therapy [...] 0, Mildly Thick Liquids IDDSI Level 2 ([place] Thick), Pureed Solids IDDSI Level 4, Soft [...] 0, Mildly Thick Liquids IDDSI Level 2 ([place] Thick), Pureed Solids IDDSI Level 4, Soft [...] 4, Mildly Thick Liquids IDDSI Level 2 ([place] Thick), Thin Liquids IDDSI Level 0 Education: [...] Demonstration TREATMENT: Performed Modified Barium Swallowing Study (96017). Evaluation: Modified Barium Swallow Evaluation (74838) Swallow / Dysphagia (34349): Skilled Intervention: Provided education related to a [...] provided this date. Billing: Modified Barium Swallow (24111) and Dysphagia Treatment (97051) Total time: 30 minutes Session Start Time : 1030 Session Stop Time : 1100 Meliza Plasencia CCC-NET SOFTWARE ENGINEER documented in this encounterMercy [facility]01-13-2025 History of Present illness Narrative* Albina [...] PATIENT PRESENTS WITH AN IMPLANTABLE OR ATTACHED CORN SHELLER: No RADIOLOGY DEPARTMENT: General X-ray: Exam(s) Completed: GI/ Procedure(s): Modified barium swallowwith barium contrast PERIPHERAL IV DATA: Not applicable SIGNED BY: RT Oliverio(Dylan) November 09, 2024 12:34 PM documented in this encounterMercy Health [facility]01-13-2025 NoteHNO ID: [id number] Author: ALBINA BOLES RT(R) Service: Radiology Author [...] PATIENT PRESENTS WITH AN IMPLANTABLE OR ATTACHED CORN SHELLER: No RADIOLOGY DEPARTMENT: General X-ray: Exam(s) Completed: GI/ Procedure(s): Modified barium swallow with barium contrast PERIPHERAL IV DATA: Not applicable SIGNED BY: RT Oliverio(R) November 09, 2024 12:34 PMSouthview Medical CenterEkynlway55-66-6501 Telephone encounter Note* Telephone Encounter - Li Allison MA - 11/06/2024 12:52 PM EST Spoke with patients Timothy rayo. Informed and verbalized understanding. Endo appt already scheduled. Advised to gets labs next week. Sending to schedulers for US. Li Allison MA [facility]01-10-2025 Miscellaneous Notes* Telephone Encounter - Li [...] Nat Marcelo RN * Telephone Encounter - Lynette Ríos RN - 11/06/2024 9:56 AM EST Called and left a voicemail for the Patient and her daughter Sujata to call back and ask for a nurse to receive the providers message. Lynette Ríos, MAGNUS * Telephone Encounter - Henok Martinez MD - 11/06/2024 9:47 AM EST Sugars are way to high, see endo. Lipase or pancreatic enzyme is very mildly up. How is her stomach pain? Let me know documented in this encounterMer[facility] Telephone encounter Note * Telephone Encounter - Henok Martinez MD - 11/06/2024 11:22 AM EST OK set up for endo. Call if pain worsens, light diet. Recheck lipase and follow up next week. Avoid any etoh. Get ruq us. [facility]01-10[facility] Telephone encounter Note* Telephone Encounter - Nat Marcelo RN - 11/06/2024 11:01 AM EST Patient's son Timothy notified of results and provider's instructions. Patient's son verbalizes understanding. Timothy states that the stomach pain is the same as she was having. Nat Marcelo RN [facility]01-10-2025 Telephone encounter Note* Telephone Encounter - Lynette Ríos RN - 11/06/2024 9:56 AM EST Called and left a voicemail for the Patient and her daughter Sujata to call back and ask for a nurse to receive the providers message. Lynette Ríos RN [facility]01-10-2025 Telephone encounter Note* Telephone Encounter - Henok Martinez MD - 11/06/2024 9:47 AM EST Sugars are way to high, see endo. Lipase or pancreatic enzyme is very mildly up. How is her stomach pain? Let me know [facility]01-09-2025 History of Present illness Narrative* Kassandra Mott RT(R) - 11/05/2024 9:30 AM EST Radiology [...] PATIENT PRESENTS WITH AN IMPLANTABLE OR ATTACHED CORN SHELLER: No RADIOLOGY DEPARTMENT: General X-ray: Exam(s) Completed: Chest X-Ray PERIPHERAL IV DATA: Not applicable SIGNED BY: RT Rambo(R) November 05, 2024 9:19 AM documented in this encounterMercy Health [facility]01-09-2025 [facility] NoteC[facility]01-[facility] History of Present illness Narrative* Henok [...] day with meals. Blood Pressure Test Kit-Large (Villij ARM BP MONITOR) 1 Each once daily. [...] ICD9: V12.54, ICD10: Z86.73 -as above. 10. correction current use of anticoagulant therapy - ICD9: V58.61, ICD10: Z79.01 - stable. 11. Epigastric pain - ICD9: 789.06, ICD10: R10.13 - increase protonix. Consider gi. Recheck one month. - LIPASE - US ABD RIGHT UPPER QUADRANT 12.hemoptysis Get xray now and see Dr Galindo Martinez MD documented in this encounterMercy Health [facility]12-17-2024 Instructions* Patient Instructions* Virginia Garcia APRN.CRATE BUILDER - 10/13/2024 2:58 PM EST 1) Levaquin 500 mg daily for 7 days 2) Tessalon (benzonatate) 100 mg 3 x days as needed for cough 3) See Dr. Martinez in October as scheduled 4) Modified barium swallow for dysphagia documented in this encounterMercy Health [facility]12-17-2024 NoteC[facility]12-17-2024 History of Present illness Narrative* Virginia Garcia APRN.NÉSTOR - 10/13/2024 2:48 PM EST This [...] day with meals. Blood Pressure Test Kit-Large (Villij ARM BP MONITOR) 1 Each once daily. [...] Resp 16 Wt 73.5 kg (162 lb) [id number]% BMI 32.72 kg/m PHYSICAL EXAM: Physical Exam [...] or as needed for worsening/no improvement. Virginia Garcia APRN.CRATE BUILDER documented in this encounterMercy Health [facility]09-04-2024 History of Present illness Narrative* Henok Martinez MD - 07/01/2024 3:52 PM EDT Patient presents with: ER F/U HPI: Patient presents today for office visit for HOSPITAL/ER FOLLOW UP: Reason for visit: Multiple somatic complaints ranging from left side of head and face, left side ofneck and left arm pain with chest pain. Which facility: [facility] Date of visit: 06/25/24 Diagnosis: Cervical radiculopathy [...] day with meals. Blood Pressure Test Kit-Large (Villij ARM BP MONITOR) 1 Each once daily. [...] without long- term current use of insulin ([facility]) PAST SURGICAL HISTORY No date: APPENDECTOMY No [...] stable. Henok Martinez MD documented in this encounterMercy [facility]08-10-2024 History of Present illness Narrative* Kassandra Mott RT(R) - 06/06/2024 8:00 AM EDT Radiology [...] PATIENT PRESENTS WITH AN IMPLANTABLE OR ATTACHED CORN SHELLER: No RADIOLOGY DEPARTMENT: General X-ray: Exam(s) Completed: Rib X-Ray: Right PERIPHERAL IV DATA: Not applicable SIGNED BY: RT Rambo(R) June 06, 2024 8:00 AM documented in this encounterMercy Health [facility] Hospital08-10-2024 Miscellaneous Notes* Result Encounter Note - Danielle Taylor PA-C - 06/06/2024 8:00 AM EDT Please call Telma to alert her that her rib xray was normal. No sign of a fracture. documented in this encounterMercy Health [facility] Hospital08-10-2024 Progress note* Result Encounter Note - Danielle Taylor PA-C - 06/06/2024 8:00 AM EDT Please call Telma to alert her that her rib xray was normal. No sign of a fracture. [facility] Work Phone: 1(886) 202-897008-09-2024 History of Present illness Narrative* Nancy Medley MD - 06/05/2024 11:45 AM EDT Images from the original note were not included. 0. [facility] [place] Note Patient name: Telma Tineo PCP: Henok [...] day with meals. Blood Pressure Test Kit-Large (Villij ARM BP MONITOR) 1 Each once daily. [...] edited and updated as necessary. Angelia Hart APRN.CRATE BUILDER Attending Note I have personally performed a [...] Time: 3:07 PM Nancy Medley MD [facility] [place] documented in this encounterMercy [facility]07-15-2024 Telephone encounter Note * Telephone Encounter - Virginia Doty LPN - [...] Doty LPN May 11, 2024 10:26 AM [facility]07-15-2024 Miscellaneous Notes* Telephone Encounter - Virginia [...] 11, 2024 10:26 AM documented in this encounterMercy Health [facility] Hospital07-08-2024 Telephone encounter Note * Telephone Encounter - Li Allison MA - 05/04/2024 2:28 PM EDT Patients girma Aguirre informed and verbalized understanding. Sending to schedulers for Endo consult. Timothy will wait for callback on that. Li Allison MA [facility]07-08-2024 Miscellaneous Notes* Telephone Encounter - Li [...] anemia labs including ibobt documented in this encounterMercy Health [facility] Hospital07-08-2024 Telephone encounter Note * Telephone Encounter - Henok Martinez MD - 05/04/2024 1:02 PM EDT Sugars are still out of control. Slightly better but still way too high. Again. Recommend endo. Referral already placed. She appears to have a new mild anemia. Recheck anemia labs including ibobt [facility]07-05-2024 History of Present illness Narrative* Janene Ernandez RT(R) - 05/01/2024 4:50 PM EDT [...] PATIENT PRESENTS WITH AN IMPLANTABLE OR ATTACHED CORN SHELLER: No RADIOLOGY DEPARTMENT: General X-ray: Exam(s) Completed: Chest X-Ray PERIPHERAL IV DATA: Not applicable SIGNED BY: RT Gavin(R) May 01, 2024 4:35 PM documented in this encounterMercy Health [facility]07-05-2024 History of Present illness Narrative* Henok [...] Abs Lymph 1.00 - 4.00 k/uL 2.06 [place]% % 7.3 Abs [place] <0.87 k/uL 1.23 (H) Eosin% % 0.9 [...] mouth once daily. Blood Pressure Test Kit-Large (Villij ARM BP MONITOR) 1 Each once daily. [...] xray. Henok Martinez MD documented in this encounterMercy Health [facility]07-02-2024 History of Present illness Narrative* Emma [...] continue care with primary care doctor and/or recreation aide to maintain optimum levels as they are [...] 28, 2024 1:38 PM documented in this encounterMercy Health [facility]05-24-2024 Telephone encounter Note * Telephone Encounter - Virginia Garcia APRN.CNS - 03/20/2024 12:32 PM EDT The following approved medication requests have been transmitted electronically. Requested Prescriptions Pending Prescriptions Disp Refills pantoprazole DR (PROTONIX) 40 mg tablet 90 tablet 3 Sig: Take 1 tablet by mouth once daily. Virginia Garcia APRN.CNS [facility]05-24-2024 Miscellaneous Notes* Telephone Encounter - Virginia Garcia APRN.CNS - 03/20/2024 12:32 PM EDT The following approved medication requests have been transmitted electronically. Requested Prescriptions Pending Prescriptions Disp Refills pantoprazole DR (PROTONIX) 40 mg tablet 90 tablet 3 Sig: Take 1 tablet by mouth once daily. Virginia Garcia APRN.CNS * Telephone Encounter - Elaina Retana [...] Thank you. Elaina Retana. documented in this encounterMercy Health [facility]05-24-2024 Telephone encounter Note * Telephone Encounter [...] 05/01/2024 Please advise. Thank you. Elaina Retana. [facility]05-16-[facility]24 Telephone encounter Note* Telephone Encounter - Donna Mcnally - 03/12/2024 9:11 AM EDT 3rd call attempt, left vm, closing encounter [facility]05-16-2024 Miscellaneous Notes* Telephone Encounter - Donna [...] help patient set up endo consult in [place]. Cris Garza Ma * Telephone Encounter - [...] slightly high. Recheck labs in one week. Yarn Spinner she missed any of her dm meds? I would recommend she see our endo nurse [place] in [place] to help with her sugars. documented in this encounterMercy Health [facility]05-13-2024 Telephone encounter Note * Telephone Encounter - Wendi Mccoy PSS - 03/09/2024 8:26 AM EDT 2nd attempt: LVM for patient to schedule endocrinology appointment. [facility]05-10-[facility]24 Telephone encounter Note* Telephone Encounter - Belinda Shields RN - 03/06/2024 10:31 AM EDT Daughter, Sujata, phoned asking for results of xray and given providers message below with verbalized understanding. Daughter agreeable. [facility]05-10-2024 Miscellaneous Notes* Telephone Encounter - Belinda Shields RN - 03/06/2024 10:31 AM EDT Daughter, Sujata, phoned asking for results of xray and given providers message below with verbalized understanding. Daughter agreeable. * Telephone Encounter - Henok Martinez MD - 03/06/2024 8:22 AM EDT Xray shows ?? Nodules that could be from infection. Recheck xray in one month to make sure goes away. documented in this encounterMercy Health [facility] Hospital05-10-2024 Telephone encounter Note * Telephone Encounter - Amisha Barbosa - 03/06/2024 9:38 AM EDT 1st attempt LVM to schedule with endocrinology [facility]05-10-2024 Telephone encounter Note* Telephone Encounter - Henok Martinez MD - 03/06/2024 8:22 AM EDT Xray shows ?? Nodules that could be from infection. Recheck xray in one month to make sure goes away. [facility]05-09-[facility] Telephone encounter Note* Telephone Encounter - Cris Garza MA - 03/05/2024 1:48 PM EDT Patient's son was made aware of the results. Patient verbalizes understanding. He is unsure if she misses any medication doses. He will check. Please help patient set up endo consult in [place]. Cris Garza Ma [facility]05-09-2024 Telephone encounter Note* Telephone Encounter - [...] slightly high. Recheck labs in one week. Yarn Spinner she missed any of her dm meds? I would recommend she see our endo nurse here in [place] to help with her sugars. [facility]05-09-2024 Telephone encounter Note* Telephone Encounter - Bharati Jackson LPN - 03/05/2024 9:59 AM EDT Daughter called and results below given. Her labs are not all back yet. They white count is up but that is likely from her recent steroids. Dr Mueller Written by Henok Martinez MD on 03/05/2024 9:56 AM E [facility]05-09-2024 Miscellaneous Notes* Telephone Encounter - Bharati Jackson LPN - 03/05/2024 9:59 AM EDT Daughter called and results below given. Her labs are not all back yet. They white count is up but that is likely from her recent steroids. Dr Mueller Written by Henok Martinez MD on 03/05/2024 9:56 AM E documented in this encounterMercy Health [facility] Hospital05-08-2024 History of Present illness Narrative* Janene Ernandez, RT(R) - 03/04/2024 3:50 PM EDT [...] PATIENT PRESENTS WITH AN IMPLANTABLE OR ATTACHED CORN SHELLER: No RADIOLOGY DEPARTMENT: General X-ray: Exam(s) Completed: Chest X-Ray PERIPHERAL IV DATA: Not applicable SIGNED BY: RT Gavin(R) March 04, 2024 3:37 PM documented in this encounterMercy Health [facility] Hospital05-08-2024 History of Present illness Narrative* Henok Martinez MD - 03/04/2024 2:11 PM EDT Patient presents with: ER F/U HPI: Patient presents today for office visit for HOSPITAL/ER FOLLOW UP: Reason for visit: Cough, shortness of breath, weakness Which facility: [facility] Date of visit: 02/25/24 Diagnosis: Asthma, dehydration, [...] Was seen in [facility] [place] on 02/07/24 and then again on 02/19/24. [...] mouth once daily. Blood Pressure Test Kit-Large (Villij ARM BP MONITOR) 1 Each once daily. [...] HORMONE Henok Martinez MD documented in this encounterMercy Health [facility] Hospital05-06-2024 Telephone encounter Note * Telephone Encounter - Sun Knowles OCCA - 03/02/2024 11:47 AM EDT TC to Sujata who verbalized understanding of below. Sujata wanting to keep appointment scheduled with Dr. Martinez on Saturday. CHAY Tolbert [facility]05-06-2024 Miscellaneous Notes* Telephone Encounter - Sun [...] providers before Sat * Telephone Encounter - Lynette Ríos RN - 03/02/2024 11:23 AM EDT [...] She states she took the Pt to [facility] and they gave her Prednisone (which she [...] Please call and advise. documented in this encounterMercy Health [facility] Hospital05-06-2024 Telephone encounter Note * Telephone Encounter - Henok Martinez MD - 03/02/2024 11:42 AM EDT Would recommend being seen. If bad, see one of the other providers before Sat [facility]05-06-2024 Telephone encounter Note* Telephone Encounter - Lynette Ríos RN - 03/02/2024 11:23 AM EDT [...] She states she took the Pt to [facility] and they gave her Prednisone (which she took the last pill yesterday), Albuterol, and IV fluids. Pt reports the Prednisone helped, but the Albuterol doesn't seem to help at all. Pt denies fever, but doesn't have anything to take it with. Tried to get the Pt an earlier appoin tme, but she wants to see Dr Martinez and the earliest they could get her in was Saturday03/04/24. Please call and advise. [facility]04-30-[facility] Discharge summary Author Gabe Foster [facility] February 25, 2024 6:12pm Note Date/Time February 25, 2024 4:5 1pm [facility] Medical Records Department [address] [place] [address] Emergency Department Summary 02/25/24 MR#: [id number] Acct: [id number] Name: TELMA TINEO Rep #:[id number] : 1940 83 From: Gabe Foster DO [...] history of asthma she states since . [facility] Medical History Asthma Complaint of melena [...] 76.3 H Lymph % (Auto) 9.0 L [place] % (Auto) 13.1 H Eos % (Auto) [...] Clarity Clear Urine pH 7.0 Ur Specific [place] 1.005 Urine Protein 30 H Urine Glucose [...] your Primary Care Provider. Call [facility] ([phone]) or report to the closest Emergency Room. Call 911 if necessary. 02/25/241811 <Electronically signed by Gabe Foster DO> Cosigner Signature (if applicable): CC: Dr. Henok Martinez MD ~ Signed [facility] Work Phone: 1(986) 557-902104-26-2024 Telephone encounter Note* Telephone Encounter - Shabnam Shah LPN - 02/21/2024 4:40 PM EDT Daughter notified. [facility]04-26-[facility] Miscellaneous Notes* Telephone Encounter - Shabnam Shah LPN - 02/21/2024 4:40 PM EDT Daughter notified. * Telephone Encounter - Henok Martinez MD - 02/21/2024 4:24 PM EDT Urgent care note said one day. Will add meds * Telephone Encounter - Shabnam Shah LPN - 02/21/2024 4:18 PM EDT Patient daughter states that she has had symptoms for a week now. Using OTC Vicks, Tylenol, Emergen-C, Mucinex, [place], honey, drinking tea. Will need call daughter [...] during call. Please advise daughter Sujata at [phone] Thank you. documented in this encounterMercy Health [facility]04-26-2024 Telephone encounter Note * Telephone Encounter - Henok Martinez MD - 02/21/2024 4:24 PM EDT Urgent care note said one day. Will add meds [facility]04-26-2024 Telephone encounter Note* Telephone Encounter - Shabnam Shah LPN - 02/21/2024 4:18 PM EDT Patient daughter states that she has had symptoms for a week now. Using OTC Vicks, Tylenol, Emergen-C, Mucinex, [place], honey, drinking tea. Will need call daughter back. [facility]04-26-[facility]24 Telephone encounter Note* Telephone Encounter - [...] anything down can always be seen again. [facility]04-26-2024 Telephone encounter Note* Telephone Encounter - [...] during call. Please advise daughter Sujata at [phone] Thank you. [facility]04-24-[facility]24 History of Present illness Narrative* Lana Alanis APRN.CRATE BUILDER - 02/19/2024 1:03 PM EDT CC: Patient [...] mouth once daily. Blood Pressure Test Kit-Large (Villij ARM BP MONITOR) 1 Each once daily. [...] plan. Lana Alanis APRN.NÉSTOR documented in this encounterMercy Health [facility]sburg Hospital04-12-2024 History of Present illness Narrative* Fazal [...] mouth once daily. Blood Pressure Test Kit-Large (Villij ARM BP MONITOR) 1 Each once daily. [...] of care. This note was generated using Meritful software. It may contain errors in wording, punctuation, or spelling. Fazal Law APRN.NÉSTOR documented in this encounterMercy Health [facility] Hospital02-29-2024 Miscellaneous Notes* Telephone Encounter - Virginia [...] you. Virginia Doty LPN. documented in this encounterMercy Health Perrysburg Hospital02-19-2024 History of Present illness Narrative* Henok [...] mouth twice daily. Blood Pressure Test Kit-Large (Villij ARM BP MONITOR) 1 Each once daily. [...] A1C Henok Martinez MD documented in this encounterMercy Health Perrysburg Hospital11-22-2023 Miscellaneous Notes* Telephone Encounter - Belinda [...] Provider: Belinda MULLER PA-C documented in this encounterMercy Health Perrysburg Hospital11-09-2023 History of Present illness Narrative* Belinda Muller PA-C - 09/05/2023 3:20 PM EST 83 year old female new to me here with son, with c/o 3 month follow-up rescheduled from Dr. 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 Sarabia head of mobile After stroke had trouble communicating, had trouble [...] Lymph 1.00 - 4.00 k/uL 2.01 2.00 [place]% % 8.4 8.4 Abs [place] <0.87 k/uL 0.71 0.73 Eosin% % 1.7 [...] complication (hcc) Mild intermittent asthma without complication Lead Data Entry Operator: Dr. Nancy Medley, Danielle Medley PA-C. Interval [...] Type (Hcc) Chest Pain Hyperlipidemia Impaired Cognition [facility] Current Use of Anticoagulant Therapy Cerebrovascular Accident [...] 180 tablet 3 Blood Pressure Test Kit-Large (Villij ARM BP MONITOR) 1 Each once daily. 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 Belinda Muller PA-C documented in this encounterMercy Health [facility] Hospital10-09-2023 Miscellaneous Notes* Telephone Encounter - Lena Lopez LPN - 08/05/2023 1:28 PM EDT Timothy arguello. * Telephone Encounter - Lynette Ríos RN - 08/05/2023 1:24 PM EDT Called and left a voicemail for the Patient to call back and ask for a nurse to receive the providers message. Lynette Ríos RN * Telephone Encounter - Clarita Boggs APRN.CNP - 08/05/2023 1:09 PM EDT Script sent. Clarita Boggs APRN.NÉSTOR * Telephone Encounter - Lynette Ríos RN - 08/05/2023 12:08 PM EDT Pt is out, pharmacy gave her an emergency fill to get her through until provider could send it in. Patient has been identified by name and date of : Yes, Provider Dr Martinez Date 08/05/23 Time 1210. HeadCount phones for refill(s): Requested Prescriptions Pending Prescriptions [...] BP: 05/20/2023 134/74 Please advise. Thank you. Lynette Ríos RN documented in this encounterMercy Health [facility] Hospital08-29-2023 History of Present illness Narrative* Emma [...] complication, without long-term current use of insulin ([facility]) Monitor 4. Pseudophakia of both eyes 5. Presbyopia Monitor Follow-up in 10 months for complete diabetic eye exam Emma Mcnally, OD June 25, 2023 10:12 AM documented in this encounterMercy Health [facility] Hospital08-29-2023 Instructions* Patient Instructions* Emma Mcnally, OD - 06/25/2023 10:06 AM EDT Use warm compresses daily Continue: Systane Complete or Refresh Relieva 2-3 times daily Systane, Refresh or Blink gel nightly before bed in both eyes documented in this encounterMercy Health [facility]sburg Hospital07-24-2023 History of Past illness Narrative* Problem Noted Date Diagnosed Date Resolved Date Candidiasis of vagina 05/20/2023 05/20/20232022 Neck pain 05/20/2023 05/20/2023 05/20/2023 documented as of this encounter (statuses as of 06/25/2023) [facility] History of Past illness Narrative* Problem Noted Date Diagnosed Date Resolved Date Candidiasis of vagina 05/20/2023 05/20/20232022 Neck pain 05/20/2023 05/20/2023 05/20/2023 documented as of this encounter (statuses as of 08/06/2023) [facility] History of Past illness Narrative* Problem Noted Date Diagnosed Date Resolved Date Candidiasis of vagina 05/20/2023 05/20/20232022 Neck pain 05/20/2023 05/20/2023 05/20/2023 documented as of this encounter (statuses as of 09/06/2023) [facility] History of Past illness Narrative* Problem Noted Date Diagnosed Date Resolved Date Candidiasis of vagina 05/20/2023 05/20/202305/20/ 2023 Neck pain 05/20/2023 05/20/2023 05/20/2023 documented as of this encounter (statuses as of 09/18/2023) [facility] History of Past illness Narrative* Problem Noted Date Diagnosed Date Resolved Date Candidiasis of vagina 05/20/2023 05/20/20232022 Neck pain 05/20/2023 05/20/2023 05/20/2023 documented as of this encounter (statuses as of 12/16/2023) [facility] History of Past illness Narrative* Problem Noted Date Diagnosed Date Resolved Date Candidiasis of vagina 05/20/2023 05/20/20232022 Neck pain 05/20/2023 05/20/2023 05/20/2023 documented as of this encounter (statuses as of 12/27/2023) [facility] History of Past illness Narrative* Problem Noted Date Diagnosed Date Resolved Date Candidiasis of vagina 05/20/2023 05/20/20232022 Neck pain 05/20/2023 05/20/2023 05/20/2023 documented as of this encounter (statuses as of 02/07/2024) [facility] Foster [facility] April 22, 2023 8:09pm Note Date/Time April 22, 2023 8:09 pm [facility] Medical Records Department [address] [place] [id number] Emergency Department Summary 04/22/23 MR#: [id number] Acct: [id number] Name: TELMA TINEO Rep #:[id number] : 1940 82 From: Gabe Foster DO [...] has history of stroke in the past. [facility] Medical History Asthma Complaint of melena [...] % (Auto) 65.0 Lymph % (Auto) 23.0 [place] % (Auto) 9.0 Eos % (Auto) 2.2 [...] your Primary Care Provider. Call [facility] ([phone]) or report to the closest Emergency Room. Call 911 if necessary. 04/22/232008 <Electronically signed by Gabe Foster DO> Cosigner Signature (if applicable): CC: Dr. Henok Martinez MD ~ Signed [facility] Work Phone: 1(741) [phone] Instructions* Patient Instructions* Clarita Boggs APRN.CNP - 04/15/2023 1:29 PM EDT Stop the hydrochlorothiazide. Increase the metolprolol to 75 mg (1 1/2 tablets) twice daily. Recheck BP in 2-3 weeks. documented in this encounterMer[facility]06-19-2023 History of Present illness Narrative* Clarita [...] Medications Medication Sig Blood Pressure Test Kit-Large (Villij ARM BP MONITOR) 1 Each once daily. [...] of the risks of HTN -- including [place], CVA, . Discussed options and she is [...] as needed for worsening/no improvement. Clarita Boggs APRN.CRATE BUILDER documented in this encounterMercy Health [facility]06-05-2023 History of Present illness Narrative* Henok Martinez MD - 04/01/2023 4:00 PM EDT Patient presents with: ER F/U HPI: Patient presents today for office visit for follw up. HOSPITAL/ER FOLLOW UP: Reason for visit: HTN Which facility: [facility] Date of visit: 03/31/23 Diagnosis: HTN Testing [...] A1C Henok Martinez MD documented in this encounterMercy Health [facility]05-01-2023 Instructions* Patient Instructions* Sun Beal RD [...] beverages, no juice 7 Use healthy fats: [place] oil, canola oil, walnuts, ground flaxseed or [...] choices when eating out documented in this encounterMercy Health [facility] Hospital05-01-2023 History of Present illness Narrative* Sun [...] beverages, no juice 7 Use healthy fats: [place] oil, canola oil, walnuts, ground flaxseed or [...] Vitamins/Supplements - MVI, May go out for Tamazight Plain salads and veggies Occ beans, potatoes, [...] 2023 TIME: 1:45 PM documented in this encounterMercy Health [facility] Hospital04-25-2023 Miscellaneous Notes* Telephone Encounter - Fernanda Macario RN - 02/19/2023 3:09 PM EDT Patient's son Timothy returned call and given provider's message below. Fernanda Macario RN * Telephone Encounter - Shirin Adams LPN - 02/19/2023 2:52 PM EDT Message left asking pt to contact the office for results. Shirin Adams LPN * Telephone Encounter - Danielle [...] cream. Sadia Ramsey APRN.CNP documented in this encounterMercy Health [facility] Hospital04-21-2023 History of Present illness Narrative* Emma Mcnally, OD - 02/15/2023 4:27 PM EDT 1. Type 2 diabetes mellitus without complication, without long-term current use of insulin (HCC) Risk of diabetic changes and vision loss can be minimized by tight control of blood sugar, blood pressure, and cholesterol levels. 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: Hysterectomy Age at Menarche: Age at First : Age at Menopause: 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 Cassy Evans LPN documented in this encounterMercy Health Perry[facility] Hospital01-27-2023 History of Present illness Narrative* Cassy [...] PCP. Cassy Evans LPN documented in this encounterMercy Health [facility] Hospital01-26-2023 History of Present illness Narrative* Nanyc Medley MD - 11/22/2022 8:00 AM EST . [facility] [place] Note Patient name: Telma Tineo PCP: Henok [...] DATE OF EXAM: Nov 20 2022 2:16PM [facility] 0541 - CT CHEST WO IVCON [...] without long-term current use of insulin (HCC) ALLERGIES Allergen [...] sooner with problems Nancy Medley MD [facility] [place] documented in this encounterMercy Health Perry[facility] Hospital01-24-2023 History of Present illness Narrative* Shirin Spears RT(R) - 11/20/2022 1:40 PM EST Radiology [...] 20, 2022 3:59 PM documented in this encounterMercy Health Perrysburg Hospital01-20-2023 Procedure note* JOSÉ MIGUEL Russell - [...] Exhaled Nitric Oxide (ppb) 11/16/2022 13.0 NAME: Marilou JOSÉ MIGUEL Jaeger PATIENT NAME: Telma Tineo DATE: November 16, 2022 TIME: 1:45 PM documented in this encounterMercy Health Perrysburg Hospital01-20-2023 History of Present illness Narrative* Nancy Medley MD - 11/16/2022 1:30 PM EST Images from the original note were not included. . [facility] [place] Note Patient name: Telma Tineo PCP: Henok [...] Abs Lymph 1.00 - 4.00 k/uL 2.00 [place]% % 8.4 Abs [place] <0.87 k/uL 0.73 Eosin% % 2.0 Abs [...] Abs Lymph 1.00 - 4.00 k/uL 2.00 [place]% % 8.4 Abs [place] <0.87 k/uL 0.73 Eosin% % 2.0 Abs [...] without long-term current use of insulin (HCC) ALLERGIES Allergen [...] uncomplicated -See #1 Nancy Medley MD [facility] [place] documented in this encounterMercy Health [facility] Hospital01-20-2023 History of Present illness Narrative* JOSÉ MIGUEL Russell - 11/16/2022 1:11 PM EST PULM FUNCTION SMARTBLOCK: Provider: Nancy Medley MD Assisting Tech: JOSÉ MIGUEL Russell Exhaled Nitric Oxide: 1 documented in this encounterMercy Health Perry[facility] Hospital01-20-2023 Nurse Note* Gloria Cordoba LPN - 11/16/2022 1:08 PM EST Intake information documented in the prior visit with JOSÉ MIGUEL Russell today. documented in this encounterMercy Health Perrysburg Hospital12-30-2022 History of Present illness Narrative* Henok [...] TABLET Henok Martinez MD documented in this encounterMercy Health Perrysburg Hospital12-27-2022 Miscellaneous Notes* Telephone Encounter - [facility] - 10/23/2022 3:56 PM EST Patient has been identified by name and date of : Yes Requested Prescriptions Pending Prescriptions Disp Refills apixaban (ELIQUIS) 2.5 mg tab(s) 60 tablet 3 Sig: Take 1 tablet by mouth twice daily. RX INSTRUCTIONS: Patient aware RX will be sent to pharmacy. No need to notify patient. [facility] documented in this encounterMercy Health Perrysburg Hospital12-19-2022 Miscellaneous Notes* Telephone Encounter - Lynette Ríos RN - 10/15/2022 3:44 PM EST Pts son called and is notified of providers results and instructions. He voices understanding, scheduled for f/u appointment on October 26, 2022. Lynette Ríos RN * Telephone Encounter - Henok Martinez MD - 10/15/2022 3:02 PM EST Pfts do not show definite asthma. Do show some changes that suggest there could be issues with lungtissue etc. Follow up to go over the results in next few weeks. Call if breathing worsens. documented in this encounterMercy Health Perry[facility] Hospital12-16-2022 History of Present illness Narrative* JOSÉ MIGUEL Russell - 10/12/2022 2:32 PM EST PULM FUNCTION SMARTBLOCK: Provider: Henok Martinez MD Assisting Tech: JOSÉ MIGUEL Russell Spirometry w/BD: 1 DLCO: 1 LV - Box: 1 documented in this encounterMercy Health [facility] Hospital12-15-2022 Miscellaneous Notes* Telephone Encounter - Alison [...] no specimens taken and no path toreview.Alison Stitzlein, RN * Telephone Encounter - Hailey Castro - 09/05/2022 2:36 PM EST 10/04/2022 colon lodi Patient okay for ASC. Wanted to get in sooner and not around holidays. Orders changed to lodi Hailey Gabrielond It Programmer documented in this encounterMercy Health Perry[facility] Hospital12-05-2022 History of Present illness Narrative* Henok [...] Abs Lymph 1.00 - 4.00 k/uL 2.00 [place]% % 8.4 Abs [place] <0.87 k/uL 0.73 Eosin% % 2.0 Abs [...] (DLCO) Henok Martinez MD documented in this encounterMercy Health Perry[facility] Hospital11-21-2022 Miscellaneous Notes* Telephone Encounter - Li Allison - 09/17/2022 2:41 PM EST iris Aguirre informed new med sent in. Li Allison * Telephone Encounter - Henok Martinez MD - 09/17/2022 2:30 PM EST sent * Telephone Encounter - Li Allison - 09/17/2022 2:27 PM EST Clarified with girma Aguirre. Patient did in fact start taking the medication and then developed the drycough. Requesting alternative to [facility] pharmacy. Advise. Li Allison * Telephone Encounter - Laura Manuel Pss - 09/17/2022 2:11 PM EST Son [...] the pharmacy. Please contact Girma Aguirre at [phone]. Laura Manuel Pss documented in this encounterMercy Health Perry[facility] Hospital11-09-2022 History of Present illness Narrative* Monet [...] has had previous colonoscopy 4 years (in [place]) She is on eliquis for history of [...] entered by the nurse and reviewed by mi Nursing Notes: Deborah Montiel LPN 09/05/2022 1:47 [...] na Last Colonoscopy: 4 years ago in [place] Deborah Montiel LPN PHYSICAL EXAMINATION: General: The [...] patient was offered a [facility]. The provider and patient have [...] patient will be scheduled for colonoscopy at [facility]. Monet Calvo MD documented in this encounterMercy Health Perry[facility] Hospital11-09-2022 Instructions* Patient Instructions* Monet Calvo MD [...] If you do not have a responsible mule driver (family member or friend) with you [...] your exam. 2 09/2019 documented in this encounterMercy Health Perry[facility] Hospital11-09-2022 Nurse Note* Deborah Montiel LPN - [...] na Last Colonoscopy: 4 years ago in [place] Deborah Montiel LPN documented in this encounterMercy Health [facility] Hospital09-19-2022 Miscellaneous Notes* Telephone Encounter - Cris [...] RX INSTRUCTIONS: Patient had to change to [facility] and needs 90 days also. Patient aware RX will be sent to pharmacy. No need to notify patient. Dahlia Franco Pss documented in this encounterMercy Health [facility] Hospital07-22-2022 Miscellaneous Notes* Telephone Encounter - Belinda [...] you. Belinda Shields RN documented in this encounterMercy Health Perry[facility] Hospital06-27-2022 Miscellaneous Notes* Telephone Encounter - Belinda Shields RN - 04/23/2022 1:35 PM EDT Daughter reports she tested + covid last Mon, and patient tested + covid last Sat, at the [facility]. Was prescribed tessalon perrles and inhaler, which have helped. Reports patient is better today but continues to have cough and head congestion. Thinks patient needs prednisone. Advised would need to talk to a provider for medication. Since patient does not have a MC to schedule VV, and still not over covid s/s, daughter agreeable to contact [facility] for a virtual visit. documented in this encounterMercy Health Perry[facility] Hospital04-05-2022 Miscellaneous Notes* Telephone Encounter - Kerline Hogan LPN - 01/30/2022 2:35 PM EDT A 90 day supply was dispensed on 01/26/22 at [facility] pharmacy. Janet Hogan LPN * Telephone Encounter - Lynette Ríos RN - 01/29/2022 11:06 AM EDT [...] Dr Henok Martinez Insurance Company Name:[employer] Phone number: Patient ID number:[id number] Pharmacy Name: [facility] Telephone number: [phone] * Telephone Encounter - Cris Garza Ma - 01/29/2022 10:58 AM EDT Left message for patient to return call. Cris Garza Ma * Telephone Encounter - Henok Martinez MD - 01/29/2022 8:06 AM EDT Sugars is still high. Make sure she picks up the metformin and continues the med. Lets recheck a1c in three months documented in this encounterMercy Health [facility] Hospital04-01-2022 History of Present illness Narrative* Henok [...] Abs Lymph 1.00 - 4.00 k/uL 2.01 [place]% % 8.4 Abs [place] <0.87 k/uL 0.71 Eosin% % 1.7 Abs [...] above. Henok Martinez MD documented in this encounterMercy Health [facility] Hospital06-01-2021 Evaluation note* Diagnosis Onset Date Resolution Status History of TIA (transient ischemic attack) acute Mild cognitive impairment [facility] Transient ischemic attack March, [facility] Work Phone: Consult note Author Malaika Harris [facility] Note Date/Time June 02, 2025 11: 33am [facility] Medical Records Department [address] [place] [address] Counseling Note - Pharmacy 06/02/25 1132 MR#: [id number] Acct: [id number] Name: TELMA TINEO Rep #:[id number] : 1940 84 From: Malaika Harris PCP: Dr. Henok Martinez MD Status:ADM I N Y [place] [facility] [id number] Pharmacy Service has performed discharge medication reconciliation and counseling for this patient. 1. POTASSIUM CHLORIDE 20MEQ PO BIDCM 2. LEVOFLOXACIN 500MG PO DAILY X 7 DAYS 3. METRONIDAZOLE 500MG PO TID X 7 DAYS The patient's discharge medication list was reviewed for discrepancies and discrepancies were resolved. The patient was counseled on the following discharge medications and changes in medications for homegoing were reviewed. The Reason for Use, instructions for use, and potential side effects were reviewed for all new medications. The patient's questions regarding all of their medications were answered. The patient was able to verbally demonstrate an understanding of their dischargemedications. Medications at Discharge Home Medications pantoprazole 40 mg tablet,delayed release 40 mg PO DAILY gerd #90 tabs 08/28/21 atorvastatin 20 mg tablet 20 mg PO QHS hld 03/07/23 losartan 100 mg tablet 100 mg PO DAILY bp 03/07/23 metoprolol tartrate 50 mg tablet 50 mg PO BID heart 11/21/23 apixaban 5 mg tablet 5 mg PO BID blood thinner #180 tabs 04/28/24 amlodipine 10 mg tablet 10 mg PO DAILY bp #90 tabs 11/10/24 levofloxacin 500 mg tablet 500 mg PO DAILY #7 tabs 06/02/25 metronidazole 500 mg tablet 500 mg PO TID #21 tabs 06/02/25 potassium chloride 20 mEq tablet,extended release(part/cryst) 20 meq PO BIDCM #30 tabs 06/02/25 06/02/25 1133 <Electronically signed by Malaika Harris> Date _ Malaika Harris Cosigner Signature (if applicable): Date CC: ~ Signed [facility] Work Phone: Evaluation note* Diagnosis History of CVA (cerebrovascular accident)- Primary Transient ischemic attack (TIA), 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 deficits Type 2 diabetes mellitus without complication, without long-term current use of insulin (HCC) Primary hypertension Unspecified essential hypertension Atrial myxoma Benign neoplasm of heart [facility] Diagnosis Type 2 diabetes mellitus without complication, without long-term current use of insulin (HCC)- Primary [facility]* Diagnosis Type 2 diabetes mellitus without complication, without long-term current use of insulin (HCC) [facility]* Diagnosis Primary hypertension Unspecified essential hypertension [facility] Diagnosis Change in bowel habits- Primary Other symptoms involving digestive system [facility]* Diagnosis Primary hypertension- Primary Unspecified essential hypertension [facility]* Diagnosis 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 Primary hypertension Unspecified essential hypertension Type 2 diabetes mellitus without complication, without long-term current use of insulin (HCC) History of CVA (cerebrovascular accident) Transient ischemic attack (TIA), 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 deficits Mild intermittent asthma without complication Unspecified asthma [facility] Diagnosis Mild intermittent asthma without complication Unspecified asthma [facility] Diagnosis Mild intermittent asthma without complication Unspecified asthma [facility]* Diagnosis Cough, unspecified type- Primary Primary hypertension Unspecified essential hypertension [facility]* Diagnosis Chronic cough Cough [facility]* Diagnosis Chronic cough- Primary Cough Abnormal chest x-ray Other nonspecific abnormal finding of lung field Mild persistent asthma without complication Unspecified asthma [facility]* Diagnosis Bronchiectasis without complication (HCC)- Primary Bronchiectasis without acute exacerbation Mild intermittent asthma without complication Unspecified asthma [facility]* Diagnosis Primary hypertension- Primary Unspecified essential hypertension documented in [facility] encounter [facility]* Diagnosis Primary hypertension- Primary Unspecified [...] complication Unspecified asthma documented [facility] this encounter [facility]* Diagnosis Vaginal bleeding- Primary Other specified noninflammatory disorder of vagina Pelvic and perineal pain Unspecified symptom associated with female genital organs History of uterine cancer Personal history of malignant neoplasm of other parts of uterus documented in this encounter [facility]* Diagnosis Type 2 diabetes mellitus without complication, without long-term current use of insulin (HCC)- Primary Pseudophakia of both eyes Lens replaced by other means Presbyopia documented in this encounter [facility]* Diagnosis Obesity, Class I, BMI 30-34.9- Primary Obesity, unspecified Type 2 diabetes mellitus without complication, without long-term current use of insulin ([facility]) Dietary counseling Dietary surveillance and counseling [facility]* Diagnosis Onset Date Resolution Status Atrial fibrillation acute Chest pain acute Essential hypertension chron ic Right atrial mass chronic [facility] Work Phone: Evaluation note* Diagnosis Primary hypertension- Primary Unspecified essential hypertension Type 2 diabetes mellitus without complication, without long-term current use of insulin (HCC) [facility]* Diagnosis Primary hypertension- Primary Unspecified essential hypertension History of CVA (cerebrovascular accident) Transient ischemic attack (TIA), 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 deficits Atrial fibrillation, unspecified type (HCC) documented in this encounter [facility]* Diagnosis 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 Tear film insufficiency, unspecified PCO (posterior capsular opacification), left After-cataract, unspecified Type 2 diabetes mellitus without complication, without long-term current use of insulin (HCC) Pseudophakia of both eyes Lens replaced by other means Presbyopia documented in this encounter [facility]* Diagnosis Pelvic and perineal pain Unspecified symptom associated with female genital organs documented in this encounter [facility]* Diagnosis Chronic cough Cough Abnormal chest x-ray Other nonspecific abnormal finding of lung field [facility]* Diagnosis Cerebrovascular accident (CVA), unspecified mechanism (HCC)- Primary Atrial fibrillation, unspecified type (HCC) Primary hypertension Unspecified essential hypertension Atrial myxoma Benign neoplasm of heart correction current use of anticoagulant therapy Long-term (current) [...] pain Otalgia, unspecified documented in this encounter [facility] note* Diagnosis Type 2 diabetes mellitus without complication, without long-term current use of insulin (HCC)- Primary documented in this encounter [facility] note* Diagnosis Cerebrovascular accident (CVA), unspecified mechanism [...] of insulin (HCC) documented in this encounter [facility] note* Diagnosis Primary hypertension Unspecified essential hypertension documented in this encounter [facility] note* Diagnosis Diarrhea, unspecified type- Primary documented in this encounter [facility] note* Diagnosis Sore throat- Primary Acute pharyngitis URI, acute Acute upper respiratory infections of unspecified site documented in this encounter [facility] note* Diagnosis Onset Date Resolution Status Atrial fibrillation acute Essential hypertension chron ic Right atrial mass chronic [facility] Work Phone: Evaluation note* Diagnosis Type 2 diabetes mellitus without complication, without long-term current use of insulin (HCC)- Primary Mild intermittent asthma without complication Unspecified asthma Bronchiectasis without complication (HCC) Bronchiectasis without acute exacerbation Bronchitis Bronchitis, not specified as acute or chronic Weight loss Loss of weight documented in this encounter [facility]* Diagnosis Abnormal x-ray- Primary Other nonspecific (abnormal) findings on radiological and other examinations of body structure [facility]* Diagnosis Type 2 diabetes mellitus without complication, without long-term current use of insulin (HCC)- Primary Leukocytosis, unspecified type Hyperkalemia Hyperpotassemia documented [facility]* Diagnosis 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 Tear film insufficiency, unspecified PCO (posterior capsular opacification), left After-cataract, unspecified Type 2 diabetes mellitus without complication, without long-term current use of insulin (HCC) Pseudophakia of both eyes Lens replaced by other means Presbyopia documented in this encounter [facility]* Diagnosis Primary hypertension- Primary Unspecified essential hypertension Type 2 diabetes mellitus without complication, without long-term current use of insulin (HCC) Mild intermittent asthma without complication Unspecified asthma documented in this encounter [facility]* Diagnosis History of CVA (cerebrovascular accident) Transient ischemic attack (TIA), 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 deficits documented in this encounter [facility]* Diagnosis Anemia, unspecified type- Primary documented in this encounter [facility]* Diagnosis Mild intermittent asthma without complication- Primary Unspecified asthma Bronchiectasis without complication (HCC) Bronchiectasis without acute exacerbation Rib pain on right side Chest pain, unspecified Poorly controlled type 2 diabetes mellitus (HCC)- Primary Type II or unspecified type diabetes mellitus without mention of complication, not stated as uncontrolled documented in this encounter [facility]* Diagnosis Primary hypertension- Primary [...] without residual deficits [facility] Diagnosis Primary hypertension- Primary Unspecified essential hypertension History of CVA (cerebrovascular accident) Transient ischemic attack (TIA), 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 deficits Atrial fibrillation, unspecified type (HCC) Abnormal x-ray Other nonspecific (abnormal) findings on radiological and other examinations of body structure [facility] Diagnosis Primary hypertension- Primary Unspecified essential hypertension History of CVA (cerebrovascular accident) Transient ischemic attack (TIA), 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 deficits Atrial fibrillation, unspecified type (HCC) Rib pain on right side Chest pain, unspecified [facility] Diagnosis Primary hypertension- Primary Unspecified essential hypertension History of CVA (cerebrovascular accident) Transient ischemic attack (TIA), 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 deficits Atrial fibrillation, unspecified type (HCC) Bronchitis Bronchitis, not specified as acute or chronic [facility] Diagnosis Cough, unspecified type [facility] Diagnosis Primary hypertension- Primary Unspecified essential hypertension History of CVA (cerebrovascular accident) Transient ischemic attack (TIA), 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 deficits Atrial fibrillation, unspecified type (HCC) Acute bronchitis, unspecified organism- Primary Oropharyngeal dysphagia Dysphagia, oropharyngeal phase [facility] Diagnosis Primary hypertension- Primary [...] (TIA), 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 deficits correction current use of anticoagulant therapy Long-term (current) use of anticoagulants Epigastric pain Abdominal pain, epigastric Hemoptysis Hemoptysis, unspecified [facility] Diagnosis Primary hypertension- Primary Unspecified essential hypertension History of CVA (cerebrovascular accident) Transient ischemic attack (TIA), 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 deficits Atrial fibrillation, unspecified type (HCC) Hemoptysis Hemoptysis, unspecified [facility] Primary hypertension- Primary Unspecified essential hypertension History of CVA (cerebrovascular accident) Transient ischemic attack (TIA), 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 deficits Atrial fibrillation, unspecified type (HCC) Dysphagia, oropharyngeal phase- Primary [facility] Diagnosis Primary hypertension- Primary Unspecified essential hypertension History of CVA (cerebrovascular accident) Transient ischemic attack (TIA), 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 deficits Atrial fibrillation, unspecified type (HCC) Oropharyngeal dysphagia Dysphagia, oropharyngeal phase [facility] Diagnosis Primary hypertension- Primary Unspecified essential hypertension History of CVA (cerebrovascular accident) Transient ischemic attack (TIA), 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 deficits Atrial fibrillation, unspecified type (HCC) Epigastric pain Abdominal pain, epigastric Elevated lipase Other nonspecific abnormal serum enzyme levels [facility] Diagnosis Primary hypertension- Primary [...] serum enzyme levels [facility] Diagnosis Primary hypertension- Primary Unspecified essential hypertension History of CVA (cerebrovascular accident) Transient ischemic attack (TIA), 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 deficits Atrial fibrillation, unspecified type (HCC) Mild persistent asthma without complication- Primary Unspecified asthma Cough, unspecified type Hemoptysis Hemoptysis, unspecified Bronchiectasis without complication (HCC) Bronchiectasis without acute exacerbation Dysphagia, unspecified type [facility] Diagnosis Primary hypertension- Primary Unspecified essential hypertension History of CVA (cerebrovascular accident) Transient ischemic attack (TIA), 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 deficits Atrial fibrillation, unspecified type (HCC) Primary hypertension Unspecified essential hypertension documented in this encounter [facility] [place] note* Diagnosis Primary hypertension- Primary Unspecified essential hypertension History of CVA (cerebrovascular accident) Transient ischemic attack (TIA), 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 deficits Atrial fibrillation, unspecified type (HCC) Type 2 diabetes mellitus without complication, without long-term current use of insulin (HCC)- Primary documented in this encounter [facility] [place] note* Diagnosis Primary hypertension- Primary Unspecified essential hypertension History of CVA (cerebrovascular accident) Transient ischemic attack (TIA), 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 deficits Atrial fibrillation, unspecified type (HCC) 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)- Primary Malignant neoplasm of head of pancreas documented in this encounter [facility] [place] note* Diagnosis Onset Date Resolution Status Admit [...] h hyperglycemia acute January 10, 2025 12:57am [facility] Work Phone: Evaluation note* Diagnosis Primary hypertension- Primary Unspecified essential hypertension History of CVA (cerebrovascular accident) Transient ischemic attack (TIA), 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 deficits Atrial fibrillation, unspecified type (HCC) 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) Malignant neoplasm of head of pancreas documented in this encounter [facility] [place] note* Diagnosis Primary hypertension- Primary Unspecified essential hypertension History of CVA (cerebrovascular accident) Transient ischemic attack (TIA), 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 deficits Atrial fibrillation, unspecified type (HCC) Encounter for education- Primary Counseling NOS 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) Malignant neoplasm of head of pancreas documented in this encounter [facility] note* Diagnosis Primary hypertension- Primary Unspecified essential hypertension History of CVA (cerebrovascular accident) Transient ischemic attack (TIA), 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 deficits Atrial fibrillation, unspecified type (HCC) 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)- Primary Malignant neoplasm of head of pancreas documented in this encounter [facility] note* Diagnosis Primary hypertension- Primary Unspecified essential hypertension History of CVA (cerebrovascular accident) Transient ischemic attack (TIA), 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 deficits Atrial fibrillation, unspecified type (HCC) Type 2 diabetes mellitus with hyperglycemia, with long-term current use of insulin (HCC)- Primary 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) Malignant neoplasm of head of pancreas [facility] Diagnosis Primary hypertension- Primary Unspecified essential hypertension History of CVA (cerebrovascular accident) Transient ischemic attack (TIA), 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 deficits Atrial fibrillation, unspecified type (HCC) Pancreatic adenocarcinoma (HCC)- Primary Malignant 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, 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 Long-term (current) [...] head of pancreas [facility] Diagnosis Primary hypertension- Primary Unspecified essential hypertension History of CVA (cerebrovascular accident) Transient ischemic attack (TIA), 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 deficits Atrial fibrillation, unspecified type (HCC) Pancreatic adenocarcinoma (HCC)- Primary Malignant 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, part unspecified 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) Malignant neoplasm of head of pancreas [facility]* Diagnosis Primary hypertension- Primary [...] head of pancreas [facility] Diagnosis Primary hypertension- Primary [...] head of pancreas [facility] Primary hypertension- Primary Unspecified [...] head of pancreas [facility] Diagnosis Primary hypertension- Primary Unspecified [...] pancreas, part unspecified [facility] Diagnosis Primary hypertension- Primary Unspecified essential hypertension History of CVA (cerebrovascular accident) Transient ischemic attack (TIA), 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 deficits Atrial fibrillation, unspecified type (HCC) RUQ pain- Primary Abdominal pain, right upper quadrant [facility] Diagnosis Primary hypertension- Primary [...] 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 Long-term (current) use of anticoagulants Type 2 diabetes mellitus with hyperglycemia, with long-term current use of insulin (HCC) [facility]* Diagnosis Primary hypertension- Primary Unspecified essential hypertension History of CVA (cerebrovascular accident) Transient ischemic attack (TIA), 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 deficits Atrial fibrillation, unspecified type (HCC) Type 2 diabetes mellitus without complication, without long-term current use of insulin (HCC) [facility]* Diagnosis Primary hypertension- Primary Unspecified essential hypertension History of CVA (cerebrovascular accident) Transient ischemic attack (TIA), 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 deficits Atrial fibrillation, unspecified type (HCC) Primary hypertension Unspecified essential hypertension Type 2 diabetes mellitus without complication, without long-term current use of insulin (HCC) documented in this encounter [facility] [place] note* Diagnosis Primary hypertension- Primary Unspecified essential hypertension History of CVA (cerebrovascular accident) Transient ischemic attack (TIA), 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 deficits Atrial fibrillation, unspecified type (HCC) History of CVA (cerebrovascular accident) Transient ischemic attack (TIA), 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 deficits Type 2 diabetes mellitus with hyperglycemia, with long-term current use of insulin (HCC) documented in this encounter [facility] [place] note* Diagnosis Primary hypertension- Primary Unspecified essential hypertension History of CVA (cerebrovascular accident) Transient ischemic attack (TIA), 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 deficits Atrial fibrillation, unspecified type (HCC) 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)- Primary Malignant neoplasm of head of pancreas Adenocarcinoma of head of pancreas (HCC) [facility]* Diagnosis Primary hypertension- Primary Unspecified essential hypertension History of CVA (cerebrovascular accident) Transient ischemic attack (TIA), 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 deficits Atrial fibrillation, unspecified type (HCC) 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) Malignant neoplasm of head of pancreas Adenocarcinoma of head of pancreas (HCC) documented in this encounter [facility] [place] note* Diagnosis Onset Date Resolution Status Admit Date Cholangiolitis acute May 3:58am DNR no code (do not resuscitate) acu te May 31, 2025 3:58am Hyperbilirubinemia acute May 31, 2025 3:58am Hypokalemia acute May 31, 2 025 3:58am Hyponatremia acute May 31, 2025 3:58am Leukocytosis acute May 31, 2025 3:58am Pancreatic cancer acute May 31, 2025 3:58am Transaminitis acute May 31, 2025 3:58am Type 2 diabetes mellitus wit h hyperglycemia acute May 31, 2025 3:58am [facility] Work Phone: Evaluation note* Diagnosis Primary hypertension- Primary Unspecified essential hypertension History of CVA (cerebrovascular accident) Transient ischemic attack (TIA), 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 deficits Atrial fibrillation, unspecified type (HCC) Type 2 diabetes mellitus with hyperglycemia, with long-term current use of insulin (HCC) documented in this encounter [facility] note* Diagnosis Primary hypertension- Primary Unspecified essential hypertension History of CVA (cerebrovascular accident) Transient ischemic attack (TIA), 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 deficits Atrial fibrillation, unspecified type (HCC) Cholangitis (HCC)- Primary Cholangitis Obstruction of biliary stent, subsequent encounter Cerebrovascular accident (CVA), unspecified mechanism (HCC) Atrial fibrillation, unspecified type (HCC) Hyperlipidemia, unspecified hyperlipidemia type 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 Primary hypertension Unspecified essential hypertension Bronchiectasis without complication (HCC) Bronchiectasis without acute exacerbation Mild intermittent asthma without complication (HCC) Unspecified asthma Gastroesophageal reflux disease without esophagitis Esophageal reflux 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) Malignant neoplasm of head of pancreas Pancreatic adenocarcinoma (HCC) Malignant 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, part unspecified [facility] Primary hypertension- Primary Unspecified essential hypertension History of CVA (cerebrovascular accident) Transient ischemic attack (TIA), 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 deficits Atrial fibrillation, unspecified type (HCC) Hyponatremia- Primary Hyposmolality and/or hyponatremia [facility] Additional Instructions Your work-up today showed no signs of endorgan damage which is damage to your brain heart or kidneys from the elevated blood pressure. Continue all of your medications as previously directed and follow-up with your family doctor [facility]: [facility] Discharge instructionsAdditional Instructions Date [facility]: [facility] Phone: Reason for referral (narrative)* Outpatient Procedure (Routine) - Authorized Specialty Diagnoses / Procedures Referred By Contjosh t Referred To Contact [facility] Diagnoses Change in bowel habits Procedures COLONOSCOPY DIAGNOSTIC COLONOSCOPY DIAGNOSTIC COLONOSCOPY DIAGNOSTIC COLONOSCOPY FLX DX W/COLLJ SPEC WHEN PFRMD Monet Calvo MD [address] [place] [address] [facility] [address] [place] [address] Referral ID Status Reason Start Date Expiration Date Visits Requested Visits Authorized [id number] Authorized Auto-Generat ed Referral 09/05/2022 09/05/2023 1 1 [facility] for referral (narrative)* Outpatient Procedure (Routine) - Authorized Specialty Diagnoses / Procedures Referred By Contac t Referred To Contact [facility] Diagnoses Mild intermittent asthma without complication Procedures LUNG DIFFUSION CAPACITY (DLCO) DIFFUSING CAPACITY Henok Martinez MD [address] [place] [address] [facility] [address] [place] [address] Referral ID Status Reason Start Date Expiration Date Visits Requested Visits Authorized [id number] Authorized Auto-Generat ed Referral 10/01/2022 10/31/2023 1 1 * Outpatient Procedure (Routine) - Authorized Specialty Diagnoses / Procedures Referred By Contac t Referred To Contact [facility] Diagnoses Mild intermittent asthma without complication Procedures LUNG VOLUMES Henok Martinez MD [address] [place] [address] [address] Referral ID Status Reason Start Date Expiration Date Visits Requested Visits Authorized [id number] Authorized Auto-Generat ed Referral 10/01/2022 10/31/2023 1 1 * Outpatient Procedure (Routine) - Authorized Specialty Diagnoses / Procedures Referred By Contac t Referred To Contact [facility] Diagnoses Mild intermittent asthma without complication Procedures SPIROMETRY - BASELINE AND POST DILATOR BRNCDILAT RSPSE SPMTRY PRE&POST-BRNCDILAT ADMN Henok Martinez MD [facility] [place] [address] [address] Referral ID Status Reason Start Date Expiration Date Visits Requested Visits Authorized [id number] Authorized Auto-Generat ed Referral 10/01/2022 10/31/2023 1 1 [facility] for referral (narrative)* Diagnostic Procedure Only (Routine) - Authorized Specialty Diagnoses / Procedures Referred By Contac t Referred To Contact XR IMAGING Diagnoses Rib pain on right side Procedures XR RIBS/CHEST 3V AP RIB/OBLS/CXR RIGHT RADEX RIBS UNI W/POSTEROANT CH MINIMUM 3 VIEWS Nancy Medley MD [address] [place] [address] Xr Imaging [id number] Referral ID Status Reason Start Date Expiration Date Visits Requested Visits Authorized [id number] Authorized Auto-Generat ed Referral 06/05/2024 07/05/2025 1 1 [facility] for referral (narrative)* Diagnostic Procedure Only (Routine) - Closed Specialty Diagnoses / Procedures [facility]erred To Contact XR IMAGING Diagnoses Rib pain on right side Procedures XR RIBS/CHEST 3V AP RIB/OBLS/CXR RIGHT RADEX RIBS UNI W/POSTEROANT CH MINIMUM 3 VIEWS Nancy Medley MD [address] [place] [address] [place] [address] Referral ID Status Reason Start Date Expiration Date V isits Requested Visits Authorized [id number] Closed Auto-Generate d Referral 06/05/2024 07/05/2025 1 1 [facility] for referral (narrative)* Diagnostic Procedure Only (Routine) - Authorized Specialty Diagnoses / Procedures [facility] Referred To Contact XR IMAGING Diagnoses Oropharyngeal dysphagia Procedures XR MODIFIED BARIUM SWALLOW W SPEECH THERAPY XR MODIFIED BARIUM SWALLOW W SPEECH THERAPY RADIOLOGIC EXAM SWALLOW FUNCTION CONTRAST STUDY Virginia Garcia APRN.CRATE BUILDER [address] [id number] [place] [address] Referral ID Status Reason Start Date Expiration Date Visits Requested Visits Authorized [id number] Authorized Auto-Generat ed Referral 11/12/2025 1 1 [facility] for referral (narrative)* Diagnostic Procedure Only (Routine) - Closed Specialty Diagnoses / Procedures [facility] Referred To Contact XR IMAGING Diagnoses Oropharyngeal dysphagia Procedures XR MODIFIED BARIUM SWALLOW W SPEECH THERAPY XR MODIFIED BARIUM SWALLOW W SPEECH THERAPY RADIOLOGIC EXAM SWALLOW FUNCTION CONTRAST STUDY Virginia Garcia APRN.CNP [address] [place] [address] [place] [address] Referral ID Status Reason Start Date Expiration Date V isits Requested Visits Authorized [id number] Closed Auto-Generate d Referral 10/13/2024 11/12/2025 1 1 [facility] for referral (narrative)No reason for referral information availableWFairfield [facility] Center Work Phone: Reason for visit Narrative* Diagnostic Procedure Only (Routine) - Closed Specialty Diagnoses / Procedures Referred By Contac t Referred To Contact XR IMAGING Diagnoses Rib pain on right side Procedures XR RIBS/CHEST 3V AP RIB/OBLS/CXR RIGHT RADEX RIBS UNI W/POSTEROANT CH MINIMUM 3 VIEWS Nancy Medley MD [address] [facility] [address] [place] [address] Referral ID Status Reason Start Date Expiration Date V isits Requested Visits Authorized [id number] Closed Auto-Generate d Referral 06/05/2024 07/05/2025 1 1 [facility] for visit Narrative* Diagnostic Procedure Only (Routine) - Closed Specialty Diagnoses / Procedures Referred By Contac t Referred To Contact XR IMAGING Diagnoses Oropharyngeal dysphagia Procedures XR MODIFIED BARIUM SWALLOW W SPEECH THERAPY XR MODIFIED BARIUM SWALLOW W SPEECH THERAPY RADIOLOGIC EXAM SWALLOW FUNCTION CONTRAST STUDY Virginia Garcia APRN.CRATE BUILDER [address] [place] [address] [place] [address] Referral ID Status Reason Start Date Expiration Date V isits Requested Visits Authorized [id number] Closed Auto-Generate d Referral 10/13/2024 11/12/2025 1 1 [facility] for visit Narrative* Diagnostic Procedure Only (Routine) - Closed Specialty Diagnoses / Procedures Referred By Contac t Referred To Contact US IMAGING Diagnoses Epigastric pain Elevated lipase Procedures US ABD RIGHT UPPER QUADRANT US ABDOMINAL REAL TIME W/IMAGE LIMITED Henok Martinez MD [address] [place] [address] [place] [address] Referral ID Status Reason Start Date Expiration Date V isits Requested Visits Authorized [id number] Closed Auto-Generate d Referral 11/06/2024 12/06/2025 1 1 [facility] for visit Narrative* MRI/CT (Routine) - Closed Specialty Diagnoses / Procedures Referred By Contac t Referred To Contact CT IMAGING Diagnoses 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) Adenocarcinoma of head of pancreas (HCC) Procedures CT CHEST W IVCON DIAGNOSTIC COMPUTED TOMOGRAPHY THORAX W/CONTRAST Juan Miguel Yusuf MD [address] [place] [address] Phone: tel: CT IMAGING [id number] Referral ID Status Reason Start Date Expiration Date V isits Requested Visits Authorized [id number] Closed Auto-Generate d Referral 05/25/2025 06/24/2026 1 1 [facility] Reason for Referral Specialty Diagnoses / Procedures Referred By Contac t Referred To Contact Pulmonary and Critical Care Medicine Diagnoses Cough, unspecified type Procedures CONSULT TO PULM/CRITICAL CARE OFFICE/OUTPATIENT [facility] 60-74 MINUTES Henok Martinez MD [address] [place] [address] Referral ID Status Reason Start Date Expiration Date Visits Requested Visits Authorized [id number] Authorized PCP Requested Referral 2 10/26/2023 1 1 Specialty Diagnoses / Procedures Referred By Contac t Referred To Contact CT IMAGING Diagnoses Chronic cough Abnormal chest x-ray Procedures CT CHEST WO IVCON DIAGNOSTIC COMPUTED TOMOGRAPHY THORAX W/O CNTRST Nancy Medley MD [address] [place] [address] Ct Imaging Referral ID Status Reason Start Date Expiration Date Visits Requested Visits Authorized [id number] Authorized Auto-Generat ed Referral 11/16/2022 12/16/2023 1 1 Specialty Diagnoses / Procedures Referred By Contac t Referred To Contact [facility] Diagnoses Chronic cough Procedures NITRIC OXIDE, EXHALED NITRIC OXIDE GAS DETERMINATION Nancy Medley MD [address] [facility] [place] [address] [facility] [place] [address] [place] [address] Referral ID Status Reason Start Date Expiration Date V isits Requested Visits Authorized [id number] Closed Auto-Generate d Referral 11/16/2022 12/16/2023 1 1 Specialty Diagnoses / Procedures Referred By Contac t Referred To Contact Cardiology Diagnoses Atrial myxoma Procedures CONSULT TO CARDIOLOGY OFFICE/OUTPATIENT [facility] 60-74 MINUTES Henok Martinez MD [address] [place] [address] Referral ID Status Reason Start Date Expiration Date Visits Requested Visits Authorized [id number] Authorized PCP Requested Referral 01/25/2023 01/25/2024 1 1 Specialty Diagnoses / Procedures Referred By Contac t Referred To Contact Gynecology Diagnoses History of uterine cancer Procedures CONSULT TO GYNECOLOGY OFFICE/OUTPATIENT NEW HIGH MDM 60-74 MINUTES Henok Martinez MD [address] [place] [address] Referral ID Status Reason Start Date Expiration Date Visits Requested Visits Authorized [id number] Authorized PCP Requested Referral Auto-Generate d Referral 01/25/2023 01/25/2024 1 1 Specialty Diagnoses / Procedures Referred By Contac t Referred To Contact Ophthalmology Diagnoses Type 2 diabetes mellitus without complication, without long-term current use of insulin (HCC) Procedures CONSULT TO OPHTHALMOLOGY OFFICE/OUTPATIENT NEW HIGH MDM 60-74 MINUTES Henok Martinez MD [address] [place] [address] Referral ID Status Reason Start Date Expiration Date Visits Requested Visits Authorized [id number] Authorized PCP Requested Referral 01/25/2023 01/25/2024 1 1 Specialty Diagnoses / Procedures Referred By Contac t Referred To Contact Nutrition Diagnoses Type 2 diabetes mellitus without complication, without long-term current use of insulin (HCC) Procedures CONSULT TO NUTRITION THERAPY MEDICAL NUTRITION ASSMT&IVNTJ INDIV EACH 15 [place] MEDICAL NUTRITION ASSMT&IVNTJ INDIV EACH 15 [place] MEDICAL NUTRITION ASSMT&IVNTJ INDIV EACH 15 [place] MEDICAL NUTRITION ASSMT&IVNTJ INDIV EACH 15 [place] Henok Martinez MD [address] [place] [address] Referral ID Status Reason Start Date Expiration Date Visits Requested Visits Authorized [id number] Authorized PCP Requested Referral 01/25/2023 01/25/2024 1 1 Specialty Diagnoses / Procedures Referred By Contac t Referred To Contact CT IMAGING Diagnoses Pelvic and perineal pain Procedures CT PELVIS W IVCON CT PELVIS W/CONTRAST MATERIAL Sadia Ramsey APRN.CRATE BUILDER [address] [place] [address] Ct Imaging Referral ID Status Reason Start Date Expiration Date Visits Requested Visits Authorized [id number] Authorized Auto-Generat ed Referral 02/08/2023 03/09/2024 1 1 Specialty Diagnoses / Procedures Referred By Contac t Referred To Contact CT IMAGING Diagnoses Pelvic and perineal pain Procedures CT PELVIS W IVCON CT PELVIS W/CONTRAST MATERIAL Sadia Ramsey APRN.CRATE BUILDER [address] [place] [address] Ct [facility] [place] [address] Referral ID Status Reason Start Date Expiration Date V isits Requested Visits Authorized [id number] Closed Auto-Generate d Referral 02/08/2023 03/09/2024 1 1 Specialty Diagnoses / Procedures Referred By Contac t Referred To Contact CT IMAGING Diagnoses Chronic cough Abnormal chest x-ray Procedures CT CHEST WO IVCON DIAGNOSTIC COMPUTED TOMOGRAPHY THORAX W/O Nancy Hendrix MD [address] [place] [id number] [facility] [place] [address] Referral ID Status Reason Start Date Expiration Date V isits Requested Visits Authorized [id number] Closed Auto-Generate d Referral 11/16/2022 12/16/2023 1 1 Specialty Diagnoses / Procedures Referred By Contac t Referred To Contact Ent - Otolaryngology Diagnoses Pill dysphagia Left ear pain Procedures CONSULT TO ENT OFFICE/OUTPATIENT [facility] 60-74 MINUTES Belinda Muller PA-C [address] [place] [phone] Referral ID Status Reason Start Date Expiration Date Visits Requested Visits Authorized [id number] Authorized PCP Requested Referral 09/05/2023 09/04/2024 1 1 Specialty Diagnoses / Procedures Referred By Contac t Referred To Contact Endocrinology Diagnoses Type 2 diabetes mellitus without complication, without long-term current use of insulin (HCC) Procedures CONSULT TO ENDOCRINOLOGY OFFICE/OUTPATIENT [facility] MDM 60 MINUTES Henok Martinez MD [address] [place] [address] Referral ID Status Reason Start Date Expiration Date Visits Requested Visits Authorized [id number] Authorized PCP Requested Referral 03/05/2024 03/05/2025 1 1 Specialty Diagnoses / Procedures Referred By Contac t Referred To Contact [facility] Diagnoses Cervical radicular pain Procedures CONSULT TO PHYSICAL THERAPY PHYSICAL THERAPY EVALUATION HIGH COMPLEX 45 MINS Henok Martinez MD [address] [place] [address] [facility] [place] [address] [place] [address] Referral ID Status Reason Start Date Expiration Date Visits Requested Visits Authorized [id number] Authorized PCP Requested Referral Auto-Generate d Referral 07/01/2024 07/01/2025 99 99 Specialty Diagnoses / Procedures Referred By Contac t Referred To Contact Pulmonary and Critical Care Medicine Diagnoses Hemoptysis Procedures CONSULT TO PULM/CRITICAL CARE OFFICE/OUTPATIENT [facility] 60 [place] [address] [place] [address] Referral ID Status Reason Start Date Expiration Date Visits Requested Visits Authorized [id number] Authorized PCP Requested Referral 11/04/2024 11/04/2025 1 1 Specialty Diagnoses / Procedures Referred By Contac t Referred To Contact US IMAGING Diagnoses Epigastric pain Procedures US ABD RIGHT UPPER QUADRANT US ABDOMINAL REAL TIME W/IMAGE LIMITED Henok Martinez MD [address] [place] [address] [place] [address] Referral ID Status Reason Start Date Expiration Date Visits Requested Visits Authorized [id number] Authorized Auto-Generat ed Referral 11/04/2024 12/04/2025 1 1 Referral ID Status Reason Start Date Expiration Date Visits Requested Visits Authorized [id number] Authorized PCP Requested Referral 11/06/2024 11/06/2025 1 1 Specialty Diagnoses / Procedures Referred By Contac t Referred To Contact US IMAGING Diagnoses Epigastric pain Elevated lipase Procedures US ABD RIGHT UPPER QUADRANT US ABDOMINAL REAL TIME W/IMAGE LIMITED Henok Martinez MD [address] [place] [address] [place] [address] Referral ID Status Reason Start Date Expiration Date V isits Requested Visits Authorized [id number] Closed Auto-Generate d Referral 11/06/2024 12/06/2025 1 [...] attack Chief Complaint 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 Reason for Visit [...] 10 12:57am Overweight (BMI 25.0-29.9) January 10, 2 025 12:57am Transaminitis January 10, 2025 12: [...] with hyperglyce keiry May 31, 2025 3:58am Chief Complaint Admit Date ACUTE CHOLANGITIS WITH HYPERBILIRUBINEMI A May 31, 2025 3:58am ACUTE CHOLANGITIS WITH HYPERBILIRUBINEMI A May 31, 2025 7:04pm ACUTE CHOLANGITIS WITH HYPERBILIRUBINEMI A June 01, 2025 8:38am ACUTE CHOLANGITIS WITH HYPERBILIRUBINEMI A June 02, 2025 7:47am Chief Complaint Admit Date ACUTE CHOLANGITIS WITH HYPERBILIRUBINEMI A May 31, 2025 3:58am ACUTE CHOLANGITIS WITH HYPERBILIRUBINEMI A May 31, 2025 7:04pm ACUTE CHOLANGITIS WITH HYPERBILIRUBINEMI A June 01, 2025 8:38am ACUTE CHOLANGITIS WITH HYPERBILIRUBINEMI A June 02, 2025 7:47am 1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 2:08pm Reason for Visit Admit Date DNR no code (do not resuscitate) May 31, 2025 3:58am Hyperbilirubinemia May 31, 2025 3:5 8am Leukocytosis May 31, 2025 3:5 8am Pancreatic cancer May 31, 2025 3:5 8am Type 2 diabetes mellitus with hyperglyce keiry May 31, 2025 3:58am Cholangiolitis May 31, 2025 3:5 8am Hypokalemia May 31, 2025 3:5 8am Hyponatremia May 31, 2025 3:5 8am Transaminitis May 31, 2025 3:5 8am Chief Complaint Admit Date ACUTE CHOLANGITIS WITH HYPERBILIRUBINEMI A May 31, 2025 3:58am ACUTE CHOLANGITIS WITH HYPERBILIRUBINEMI A May 31, 2025 7:04pm ACUTE CHOLANGITIS WITH HYPERBILIRUBINEMI A June 01, 2025 8:38am ACUTE CHOLANGITIS WITH HYPERBILIRUBINEMI A June 02, 2025 7:47am 1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 2:08pm Endo Retro CholangioPancreatography FU O ctober 2024 10:25am Reason for Visit Admit Date DNR no code (do not resuscitate) May 31, 2025 3:58am Hyperbilirubinemia May 31, 2025 3:5 8am Leukocytosis May 31, 2025 3:5 8am Pancreatic cancer May 31, 2025 3:5 8am Type 2 diabetes mellitus with hyperglyce keiry May 31, 2025 3:58am Cholangiolitis May 31, 2025 3:5 8am Hypokalemia May 31, 2025 3:5 8am Hyponatremia May 31, 2025 3:5 8am Transaminitis May 31, 2025 3:5 8am Essential hypertension June 15, 2025 2:08pm 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, 2025 2: 08pm Atrial fibrillation June 15, 2025 2: 08pm Family History No Family History Records Found Relationship Condition Age at Onset Recorded Date/T emmie mother Malignant 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 Unknown Coronary artery disease Unknown father Malignant neoplasm Unknown brother Parkinson's disease Unknown Advance Directives No Advanced Directives Records Found Date Activated Date Inactivated Comments 02/10/2025 9:34 [...] Will No August 20 1:38pm Power of Diversity Intern No August 20, 2021 1:38pm Advance Directive Response Recorded Date/ Time Advance Directives No March 18 11:33am Living Will No March 18, 2023 1 1:33am Power of Diversity Intern No March 18, 2023 11:33am Advance Directive Response Recorded Date/ Time Advance Directives No March 18 11:33am Living Will No March 30, 2023 9 :37pm Power of Diversity Intern No March 30, 2023 9:37pm Advance Directive Response Recorded Date/ Time Advance Directives No March 18 3 11:33am Living Will No April 22, 2023 5:09pm Power of Diversity Intern No April 22 3 5:09pm Advance Directive Response Recorded Date/ Time Advance Directives No March 18 3 10:33am Living Will No July 30 3:22pm Power of Diversity Intern No July 30, 2 023 3:22pm Advance Directive Response Recorded Date/ Time Advance Directives No March 18 3 11:33am Living Will No February 25, 2024 3:15pm Power of Diversity Intern No February 24 3:15pm Date Activated Date Inactivated Comments 01/15/2025 2:04 AM Date Activated Date Inactivated Comments 01/15/2025 2:04 AM Question Answer Comments Full Code Order Discussed With: Patient Advance Directive Response Recorded Date/ Time Living Will No June 25 3:46pm Power of Diversity Intern No June 25, 2 024 3:46pm Living Will No January 09, 2025 6:51pm Power of Diversity Intern No January 09 6:51pm Advance Directives No March 18 11:33am Advance Directive Response Recorded Date/ Time Living Will No June 25 3:46pm Do you have a Healthcare Power of Diversity Intern? No June 25, 2024 3:46pm Living Will No January 10, 2025 2:58am Do you have a Healthcare Power of Diversity Intern? No January 10, 2025 2:58am Advance Directives [...] Do you have a Healthcare Power of Diversity Intern? No May 30, 2025 9:42pm Advance Directives No March 18 11:33am Advance Directive Response Recorded Date/ Time Do you have a Healthcare Power of Diversity Intern? No May 31, 2025 4:45am Advance Directives No March 18 11:33am Advance Directive Response Recorded Date/ Time Living Will No February 25, 2024 3:15pm Do you have a Healthcare Power of Diversity Intern? No February 25, 2024 3:15pm Do you have a Healthcare Power of Diversity Intern? No May 31, 2025 4:45am Advance Directives No March 18 11:33am Summary Purpose Additional Source Comments Source Comments (unrecognize d section and content) In the event this informatio n is protected by the Federal Confidentiality of Alcohol and Drug Abuse Patient Records regulations: The Federal rules restrict any use of the information to criminally investigate or prosecute any alcohol or drug abuse patient.[facility] HospitalIn the event this information is protected by the Federal Confidentiality of Alcohol and Drug Abuse Patient Records regulations: The Federal rules restrict any use of the information to criminally investigate or prosecute any alcohol or drug abuse patient.[facility] HospitalIn the event this information is protected by the Federal Confidentiality of Alcohol and Drug Abuse Patient Records regulations: The Federal rules restrict any use of the information to criminally investigate or prosecute any alcohol or drug abuse patient.[facility] HospitalIn the event this information is protected by the Federal Confidentiality of Alcohol and Drug Abuse Patient Records regulations: The Federal rules restrict any use of the information to criminally investigate or prosecute any alcohol or drug abuse patient.[facility] HospitalIn the event this information is protected by the Federal Confidentiality of Alcohol and Drug Abuse Patient Records regulations: The Federal rules restrict any use of the information to criminally investigate or prosecute any alcohol or drug abuse patient.[facility] HospitalIn the event this information is protected by the Federal Confidentiality of Alcohol and Drug Abuse Patient Records regulations: The Federal rules restrict any use of the information to criminally investigate or prosecute any alcohol or drug abuse patient.[facility] HospitalIn the event this information is protected by the Federal Confidentiality of Alcohol and Drug Abuse Patient Records regulations: The Federal rules restrict any use of the information to criminally investigate or prosecute any alcohol or drug abuse patient.[facility] HospitalIn the event this information is protected by the Federal Confidentiality of Alcohol and Drug Abuse Patient Records regulations: The Federal rules restrict any use of the information to criminally investigate or prosecute any alcohol or drug abuse patient.[facility] HospitalIn the event this information is protected by the Federal Confidentiality of Alcohol and Drug Abuse Patient Records regulations: The Federal rules restrict any use of the information to criminally investigate or prosecute any alcohol or drug abuse patient.[facility] HospitalIn the event this information is protected by the Federal Confidentiality of Alcohol and Drug Abuse Patient Records regulations: The Federal rules restrict any use of the information to criminally investigate or prosecute any alcohol or drug abuse patient.[facility] HospitalIn the event this information is protected by the Federal Confidentiality of Alcohol and Drug Abuse Patient Records regulations: The Federal rules restrict any use of the information to criminally investigate or prosecute any alcohol or drug abuse patient.[facility] HospitalIn the event this information is protected by the Federal Confidentiality of Alcohol and Drug Abuse Patient Records regulations: The Federal rules restrict any use of the information to criminally investigate or prosecute any alcohol or drug abuse patient.[facility] HospitalIn the event this information is protected by the Federal Confidentiality of Alcohol and Drug Abuse Patient Records regulations: The Federal rules restrict any use of the information to criminally investigate or prosecute any alcohol or drug abuse patient.[facility] HospitalIn the event this information is protected by the Federal Confidentiality of Alcohol and Drug Abuse Patient Records regulations: The Federal rules restrict any use of the information to criminally investigate or prosecute any alcohol or drug abuse patient.[facility] HospitalIn the event this information is protected by the Federal Confidentiality of Alcohol and Drug Abuse Patient Records regulations: The Federal rules restrict any use of the information to criminally investigate or prosecute any alcohol or drug abuse patient.[facility] HospitalIn the event this information is protected by the Federal Confidentiality of Alcohol and Drug Abuse Patient Records regulations: The Federal rules restrict any use of the information to criminally investigate or prosecute any alcohol or drug abuse patient.[facility] HospitalIn the event this information is protected by the Federal Confidentiality of Alcohol and Drug Abuse Patient Records regulations: The Federal rules restrict any use of the information to criminally investigate or prosecute any alcohol or drug abuse patient.[facility] HospitalIn the event this information is protected by the Federal Confidentiality of Alcohol and Drug Abuse Patient Records regulations: The Federal rules restrict any use of the information to criminally investigate or prosecute any alcohol or drug abuse patient.[facility] HospitalIn the event this information is protected by the Federal Confidentiality of Alcohol and Drug Abuse Patient Records regulations: The Federal rules restrict any use of the information to criminally investigate or prosecute any alcohol or drug abuse patient.[facility] HospitalIn the event this information is protected by the Federal Confidentiality of Alcohol and Drug Abuse Patient Records regulations: The Federal rules restrict any use of the information to criminally investigate or prosecute any alcohol or drug abuse patient.[facility] HospitalIn the event this information is protected by the Federal Confidentiality of Alcohol and Drug Abuse Patient Records regulations: The Federal rules restrict any use of the information to criminally investigate or prosecute any alcohol or drug abuse patient.[facility] HospitalIn the event this information is protected by the Federal Confidentiality of Alcohol and Drug Abuse Patient Records regulations: The Federal rules restrict any use of the information to criminally investigate or prosecute any alcohol or drug abuse patient.[facility] HospitalIn the event this information is protected by the Federal Confidentiality of Alcohol and Drug Abuse Patient Records regulations: The Federal rules restrict any use of the information to criminally investigate or prosecute any alcohol or drug abuse patient.[facility] HospitalIn the event this information is protected by the Federal Confidentiality of Alcohol and Drug Abuse Patient Records regulations: The Federal rules restrict any use of the information to criminally investigate or prosecute any alcohol or drug abuse patient.[facility] HospitalIn the event this information is protected by the Federal Confidentiality of Alcohol and Drug Abuse Patient Records regulations: The Federal rules restrict any use of the information to criminally investigate or prosecute any alcohol or drug abuse patient.[facility] HospitalIn the event this information is protected by the Federal Confidentiality of Alcohol and Drug Abuse Patient Records regulations: The Federal rules restrict any use of the information to criminally investigate or prosecute any alcohol or drug abuse patient.[facility] HospitalIn the event this information is protected by the Federal Confidentiality of Alcohol and Drug Abuse Patient Records regulations: The Federal rules restrict any use of the information to criminally investigate or prosecute any alcohol or drug abuse patient.[facility] HospitalIn the event this information is protected by the Federal Confidentiality of Alcohol and Drug Abuse Patient Records regulations: The Federal rules restrict any use of the information to criminally investigate or prosecute any alcohol or drug abuse patient.[facility] HospitalIn the event this information is protected by the Federal Confidentiality of Alcohol and Drug Abuse Patient Records regulations: The Federal rules restrict any use of the information to criminally investigate or prosecute any alcohol or drug abuse patient.[facility] HospitalIn the event this information is protected by the Federal Confidentiality of Alcohol and Drug Abuse Patient Records regulations: The Federal rules restrict any use of the information to criminally investigate or prosecute any alcohol or drug abuse patient.[facility] HospitalIn the event this information is protected by the Federal Confidentiality of Alcohol and Drug Abuse Patient Records regulations: The Federal rules restrict any use of the information to criminally investigate or prosecute any alcohol or drug abuse patient.[facility] HospitalIn the event this information is protected by the Federal Confidentiality of Alcohol and Drug Abuse Patient Records regulations: The Federal rules restrict any use of the information to criminally investigate or prosecute any alcohol or drug abuse patient.[facility] HospitalIn the event this information is protected by the Federal Confidentiality of Alcohol and Drug Abuse Patient Records regulations: The Federal rules restrict any use of the information to criminally investigate or prosecute any alcohol or drug abuse patient.[facility] HospitalIn the event this information is protected by the Federal Confidentiality of Alcohol and Drug Abuse Patient Records regulations: The Federal rules restrict any use of the information to criminally investigate or prosecute any alcohol or drug abuse patient.[facility] HospitalIn the event this information is protected by the Federal Confidentiality of Alcohol and Drug Abuse Patient Records regulations: The Federal rules restrict any use of the information to criminally investigate or prosecute any alcohol or drug abuse patient.[facility] HospitalIn the event this information is protected by the Federal Confidentiality of Alcohol and Drug Abuse Patient Records regulations: The Federal rules restrict any use of the information to criminally investigate or prosecute any alcohol or drug abuse patient.[facility] HospitalIn the event this information is protected by the Federal Confidentiality of Alcohol and Drug Abuse Patient Records regulations: The Federal rules restrict any use of the information to criminally investigate or prosecute any alcohol or drug abuse patient.[facility] HospitalIn the event this information is protected by the Federal Confidentiality of Alcohol and Drug Abuse Patient Records regulations: The Federal rules restrict any use of the information to criminally investigate or prosecute any alcohol or drug abuse patient.[facility] HospitalIn the event this information is protected by the Federal Confidentiality of Alcohol and Drug Abuse Patient Records regulations: The Federal rules restrict any use of the information to criminally investigate or prosecute any alcohol or drug abuse patient.[facility] HospitalIn the event this information is protected by the Federal Confidentiality of Alcohol and Drug Abuse Patient Records regulations: The Federal rules restrict any use of the information to criminally investigate or prosecute any alcohol or drug abuse patient.[facility] HospitalIn the event this information is protected by the Federal Confidentiality of Alcohol and Drug Abuse Patient Records regulations: The Federal rules restrict any use of the information to criminally investigate or prosecute any alcohol or drug abuse patient.[facility] HospitalIn the event this information is protected by the Federal Confidentiality of Alcohol and Drug Abuse Patient Records regulations: The Federal rules restrict any use of the information to criminally investigate or prosecute any alcohol or drug abuse patient.[facility] the event this information is protected by the Federal Confidentiality of Alcohol and Drug Abuse Patient Records regulations: The Federal rules restrict any use of the information to criminally investigate or prosecute any alcohol or drug abuse patient.[facility] HospitalIn the event this information is protected by the Federal Confidentiality of Alcohol and Drug Abuse Patient Records regulations: The Federal rules restrict any use of the information to criminally investigate or prosecute any alcohol or drug abuse patient.[facility] HospitalIn the event this information is protected by the Federal Confidentiality of Alcohol and Drug Abuse Patient Records regulations: The Federal rules restrict any use of the information to criminally investigate or prosecute any alcohol or drug abuse patient.[facility] HospitalIn the event this information is protected by the Federal Confidentiality of Alcohol and Drug Abuse Patient Records regulations: The Federal rules restrict any use of the information to criminally investigate or prosecute any alcohol or drug abuse patient.[facility] HospitalIn the event this information is protected by the Federal Confidentiality of Alcohol and Drug Abuse Patient Records regulations: The Federal rules restrict any use of the information to criminally investigate or prosecute any alcohol or drug abuse patient.[facility] HospitalIn the event this information is protected by the Federal Confidentiality of Alcohol and Drug Abuse Patient Records regulations: The Federal rules restrict any use of the information to criminally investigate or prosecute any alcohol or drug abuse patient.[facility] HospitalIn the event this information is protected by the Federal Confidentiality of Alcohol and Drug Abuse Patient Records regulations: The Federal rules restrict any use of the information to criminally investigate or prosecute any alcohol or drug abuse patient.[facility] HospitalIn the event this information is protected by the Federal Confidentiality of Alcohol and Drug Abuse Patient Records regulations: The Federal rules restrict any use of the information to criminally investigate or prosecute any alcohol or drug abuse patient.[facility] HospitalIn the event this information is protected by the Federal Confidentiality of Alcohol and Drug Abuse Patient Records regulations: The Federal rules restrict any use of the information to criminally investigate or prosecute any alcohol or drug abuse patient.[facility] HospitalIn the event this information is protected by the Federal Confidentiality of Alcohol and Drug Abuse Patient Records regulations: The Federal rules restrict any use of the information to criminally investigate or prosecute any alcohol or drug abuse patient.[facility] HospitalIn the event this information is protected by the Federal Confidentiality of Alcohol and Drug Abuse Patient Records regulations: The Federal rules restrict any use of the information to criminally investigate or prosecute any alcohol or drug abuse patient.[facility] HospitalIn the event this information is protected by the Federal Confidentiality of Alcohol and Drug Abuse Patient Records regulations: The Federal rules restrict any use of the information to criminally investigate or prosecute any alcohol or drug abuse patient.[facility] HospitalIn the event this information is protected by the Federal Confidentiality of Alcohol and Drug Abuse Patient Records regulations: The Federal rules restrict any use of the information to criminally investigate or prosecute any alcohol or drug abuse patient.[facility] HospitalIn the event this information is protected by the Federal Confidentiality of Alcohol and Drug Abuse Patient Records regulations: The Federal rules restrict any use of the information to criminally investigate or prosecute any alcohol or drug abuse patient.[facility] HospitalIn the event this information is protected by the Federal Confidentiality of Alcohol and Drug Abuse Patient Records regulations: The Federal rules restrict any use of the information to criminally investigate or prosecute any alcohol or drug abuse patient.[facility] HospitalIn the event this information is protected by the Federal Confidentiality of Alcohol and Drug Abuse Patient Records regulations: The Federal rules restrict any use of the information to criminally investigate or prosecute any alcohol or drug abuse patient.[facility] HospitalIn the event this information is protected by the Federal Confidentiality of Alcohol and Drug Abuse Patient Records regulations: The Federal rules restrict any use of the information to criminally investigate or prosecute any alcohol or drug abuse patient.[facility] HospitalIn the event this information is protected by the Federal Confidentiality of Alcohol and Drug Abuse Patient Records regulations: The Federal rules restrict any use of the information to criminally investigate or prosecute any alcohol or drug abuse patient.[facility] HospitalIn the event this information is protected by the Federal Confidentiality of Alcohol and Drug Abuse Patient Records regulations: The Federal rules restrict any use of the information to criminally investigate or prosecute any alcohol or drug abuse patient.[facility] HospitalIn the event this information is protected by the Federal Confidentiality of Alcohol and Drug Abuse Patient Records regulations: The Federal rules restrict any use of the information to criminally investigate or prosecute any alcohol or drug abuse patient.[facility] HospitalIn the event this information is protected by the Federal Confidentiality of Alcohol and Drug Abuse Patient Records regulations: The Federal rules restrict any use of the information to criminally investigate or prosecute any alcohol or drug abuse patient.[facility] HospitalIn the event this information is protected by the Federal Confidentiality of Alcohol and Drug Abuse Patient Records regulations: The Federal rules restrict any use of the information to criminally investigate or prosecute any alcohol or drug abuse patient.[facility] HospitalIn the event this information is protected by the Federal Confidentiality of Alcohol and Drug Abuse Patient Records regulations: The Federal rules restrict any use of the information to criminally investigate or prosecute any alcohol or drug abuse patient.[facility] HospitalIn the event this information is protected by the Federal Confidentiality of Alcohol and Drug Abuse Patient Records regulations: The Federal rules restrict any use of the information to criminally investigate or prosecute any alcohol or drug abuse patient.[facility] HospitalIn the event this information is protected by the Federal Confidentiality of Alcohol and Drug Abuse Patient Records regulations: The Federal rules restrict any use of the information to criminally investigate or prosecute any alcohol or drug abuse patient.[facility] HospitalIn the event this information is protected by the Federal Confidentiality of Alcohol and Drug Abuse Patient Records regulations: The Federal rules restrict any use of the information to criminally investigate or prosecute any alcohol or drug abuse patient.[facility] HospitalIn the event this information is protected by the Federal Confidentiality of Alcohol and Drug Abuse Patient Records regulations: The Federal rules restrict any use of the information to criminally investigate or prosecute any alcohol or drug abuse patient.[facility] HospitalIn the event this information is protected by the Federal Confidentiality of Alcohol and Drug Abuse Patient Records regulations: The Federal rules restrict any use of the information to criminally investigate or prosecute any alcohol or drug abuse patient.[facility] HospitalIn the event this information is protected by the Federal Confidentiality of Alcohol and Drug Abuse Patient Records regulations: The Federal rules restrict any use of the information to criminally investigate or prosecute any alcohol or drug abuse patient.[facility] HospitalIn the event this information is protected by the Federal Confidentiality of Alcohol and Drug Abuse Patient Records regulations: The Federal rules restrict any use of the information to criminally investigate or prosecute any alcohol or drug abuse patient.[facility] HospitalIn the event this information is protected by the Federal Confidentiality of Alcohol and Drug Abuse Patient Records regulations: The Federal rules restrict any use of the information to criminally investigate or prosecute any alcohol or drug abuse patient.[facility] HospitalIn the event this information is protected by the Federal Confidentiality of Alcohol and Drug Abuse Patient Records regulations: The Federal rules restrict any use of the information to criminally investigate or prosecute any alcohol or drug abuse patient.[facility] HospitalIn the event this information is protected by the Federal Confidentiality of Alcohol and Drug Abuse Patient Records regulations: The Federal rules restrict any use of the information to criminally investigate or prosecute any alcohol or drug abuse patient.[facility] HospitalIn the event this information is protected by the Federal Confidentiality of Alcohol and Drug Abuse Patient Records regulations: The Federal rules restrict any use of the information to criminally investigate or prosecute any alcohol or drug abuse patient.[facility] HospitalIn the event this information is protected by the Federal Confidentiality of Alcohol and Drug Abuse Patient Records regulations: The Federal rules restrict any use of the information to criminally investigate or prosecute any alcohol or drug abuse patient.[facility] HospitalIn the event this information is protected by the Federal Confidentiality of Alcohol and Drug Abuse Patient Records regulations: The Federal rules restrict any use of the information to criminally investigate or prosecute any alcohol or drug abuse patient.[facility] HospitalIn the event this information is protected by the Federal Confidentiality of Alcohol and Drug Abuse Patient Records regulations: The Federal rules restrict any use of the information to criminally investigate or prosecute any alcohol or drug abuse patient.[facility] HospitalIn the event this information is protected by the Federal Confidentiality of Alcohol and Drug Abuse Patient Records regulations: The Federal rules restrict any use of the information to criminally investigate or prosecute any alcohol or drug abuse patient.[facility] HospitalIn the event this information is protected by the Federal Confidentiality of Alcohol and Drug Abuse Patient Records regulations: The Federal rules restrict any use of the information to criminally investigate or prosecute any alcohol or drug abuse patient.[facility] HospitalIn the event this information is protected by the Federal Confidentiality of Alcohol and Drug Abuse Patient Records regulations: The Federal rules restrict any use of the information to criminally investigate or prosecute any alcohol or drug abuse patient.[facility] HospitalIn the event this information is protected by the Federal Confidentiality of Alcohol and Drug Abuse Patient Records regulations: The Federal rules restrict any use of the information to criminally investigate or prosecute any alcohol or drug abuse patient.[facility] HospitalIn the event this information is protected by the Federal Confidentiality of Alcohol and Drug Abuse Patient Records regulations: The Federal rules restrict any use of the information to criminally investigate or prosecute any alcohol or drug abuse patient.[facility] HospitalIn the event this information is protected by the Federal Confidentiality of Alcohol and Drug Abuse Patient Records regulations: The Federal rules restrict any use of the information to criminally investigate or prosecute any alcohol or drug abuse patient.[facility] HospitalIn the event this information is protected by the Federal Confidentiality of Alcohol and Drug Abuse Patient Records regulations: The Federal rules restrict any use of the information to criminally investigate or prosecute any alcohol or drug abuse patient.[facility] HospitalIn the event this information is protected by the Federal Confidentiality of Alcohol and Drug Abuse Patient Records regulations: The Federal rules restrict any use of the information to criminally investigate or prosecute any alcohol or drug abuse patient.[facility] HospitalIn the event this information is protected by the Federal Confidentiality of Alcohol and Drug Abuse Patient Records regulations: The Federal rules restrict any use of the information to criminally investigate or prosecute any alcohol or drug abuse patient.[facility] HospitalIn the event this information is protected by the Federal Confidentiality of Alcohol and Drug Abuse Patient Records regulations: The Federal rules restrict any use of the information to criminally investigate or prosecute any alcohol or drug abuse patient.[facility] HospitalIn the event this information is protected by the Federal Confidentiality of Alcohol and Drug Abuse Patient Records regulations: The Federal rules restrict any use of the information to criminally investigate or prosecute any alcohol or drug abuse patient.[facility] HospitalIn the event this information is protected by the Federal Confidentiality of Alcohol and Drug Abuse Patient Records regulations: The Federal rules restrict any use of the information to criminally investigate or prosecute any alcohol or drug abuse patient.[facility] HospitalIn the event this information is protected by the Federal Confidentiality of Alcohol and Drug Abuse Patient Records regulations: The Federal rules restrict any use of the information to criminally investigate or prosecute any alcohol or drug abuse patient.[facility] the event this information is protected by the Federal Confidentiality of Alcohol and Drug Abuse Patient Records regulations: The Federal rules restrict any use of the information to criminally investigate or prosecute any alcohol or drug abuse patient.[facility] HospitalIn the event this information is protected by the Federal Confidentiality of Alcohol and Drug Abuse Patient Records regulations: The Federal rules restrict any use of the information to criminally investigate or prosecute any alcohol or drug abuse patient.[facility] HospitalIn the event this information is protected by the Federal Confidentiality of Alcohol and Drug Abuse Patient Records regulations: The Federal rules restrict any use of the information to criminally investigate or prosecute any alcohol or drug abuse patient.[facility] HospitalIn the event this information is protected by the Federal Confidentiality of Alcohol and Drug Abuse Patient Records regulations: The Federal rules restrict any use of the information to criminally investigate or prosecute any alcohol or drug abuse patient.[facility] HospitalIn the event this information is protected by the Federal Confidentiality of Alcohol and Drug Abuse Patient Records regulations: The Federal rules restrict any use of the information to criminally investigate or prosecute any alcohol or drug abuse patient.[facility] HospitalIn the event this information is protected by the Federal Confidentiality of Alcohol and Drug Abuse Patient Records regulations: The Federal rules restrict any use of the information to criminally investigate or prosecute any alcohol or drug abuse patient.[facility] HospitalIn the event this information is protected by the Federal Confidentiality of Alcohol and Drug Abuse Patient Records regulations: The Federal rules restrict any use of the information to criminally investigate or prosecute any alcohol or drug abuse patient.[facility] HospitalIn the event this information is protected by the Federal Confidentiality of Alcohol and Drug Abuse Patient Records regulations: The Federal rules restrict any use of the information to criminally investigate or prosecute any alcohol or drug abuse patient.[facility] HospitalIn the event this information is protected by the Federal Confidentiality of Alcohol and Drug Abuse Patient Records regulations: The Federal rules restrict any use of the information to criminally investigate or prosecute any alcohol or drug abuse patient.[facility] HospitalIn the event this information is protected by the Federal Confidentiality of Alcohol and Drug Abuse Patient Records regulations: The Federal rules restrict any use of the information to criminally investigate or prosecute any alcohol or drug abuse patient.[facility] HospitalIn the event this information is protected by the Federal Confidentiality of Alcohol and Drug Abuse Patient Records regulations: The Federal rules restrict any use of the information to criminally investigate or prosecute any alcohol or drug abuse patient.[facility] HospitalIn the event this information is protected by the Federal Confidentiality of Alcohol and Drug Abuse Patient Records regulations: The Federal rules restrict any use of the information to criminally investigate or prosecute any alcohol or drug abuse patient.[facility] HospitalIn the event this information is protected by the Federal Confidentiality of Alcohol and Drug Abuse Patient Records regulations: The Federal rules restrict any use of the information to criminally investigate or prosecute any alcohol or drug abuse patient.[facility] HospitalIn the event this information is protected by the Federal Confidentiality of Alcohol and Drug Abuse Patient Records regulations: The Federal rules restrict any use of the information to criminally investigate or prosecute any alcohol or drug abuse patient.[facility] HospitalIn the event this information is protected by the Federal Confidentiality of Alcohol and Drug Abuse Patient Records regulations: The Federal rules restrict any use of the information to criminally investigate or prosecute any alcohol or drug abuse patient.[facility] HospitalIn the event this information is protected by the Federal Confidentiality of Alcohol and Drug Abuse Patient Records regulations: The Federal rules restrict any use of the information to criminally investigate or prosecute any alcohol or drug abuse patient.[facility] HospitalIn the event this information is protected by the Federal Confidentiality of Alcohol and Drug Abuse Patient Records regulations: The Federal rules restrict any use of the information to criminally investigate or prosecute any alcohol or drug abuse patient.[facility] HospitalIn the event this information is protected by the Federal Confidentiality of Alcohol and Drug Abuse Patient Records regulations: The Federal rules restrict any use of the information to criminally investigate or prosecute any alcohol or drug abuse patient.[facility] HospitalIn the event this information is protected by the Federal Confidentiality of Alcohol and Drug Abuse Patient Records regulations: The Federal rules restrict any use of the information to criminally investigate or prosecute any alcohol or drug abuse patient.[facility] HospitalIn the event this information is protected by the Federal Confidentiality of Alcohol and Drug Abuse Patient Records regulations: The Federal rules restrict any use of the information to criminally investigate or prosecute any alcohol or drug abuse patient.[facility] HospitalIn the event this information is protected by the Federal Confidentiality of Alcohol and Drug Abuse Patient Records regulations: The Federal rules restrict any use of the information to criminally investigate or prosecute any alcohol or drug abuse patient.[facility] HospitalIn the event this information is protected by the Federal Confidentiality of Alcohol and Drug Abuse Patient Records regulations: The Federal rules restrict any use of the information to criminally investigate or prosecute any alcohol or drug abuse patient.[facility] HospitalIn the event this information is protected by the Federal Confidentiality of Alcohol and Drug Abuse Patient Records regulations: The Federal rules restrict any use of the information to criminally investigate or prosecute any alcohol or drug abuse patient.[facility] HospitalIn the event this information is protected by the Federal Confidentiality of Alcohol and Drug Abuse Patient Records regulations: The Federal rules restrict any use of the information to criminally investigate or prosecute any alcohol or drug abuse patient.[facility] HospitalIn the event this information is protected by the Federal Confidentiality of Alcohol and Drug Abuse Patient Records regulations: The Federal rules restrict any use of the information to criminally investigate or prosecute any alcohol or drug abuse patient.[facility] HospitalIn the event this information is protected by the Federal Confidentiality of Alcohol and Drug Abuse Patient Records regulations: The Federal rules restrict any use of the information to criminally investigate or prosecute any alcohol or drug abuse patient.[facility] HospitalIn the event this information is protected by the Federal Confidentiality of Alcohol and Drug Abuse Patient Records regulations: The Federal rules restrict any use of the information to criminally investigate or prosecute any alcohol or drug abuse patient.[facility] HospitalIn the event this information is protected by the Federal Confidentiality of Alcohol and Drug Abuse Patient Records regulations: The Federal rules restrict any use of the information to criminally investigate or prosecute any alcohol or drug abuse patient.[facility] HospitalIn the event this information is protected by the Federal Confidentiality of Alcohol and Drug Abuse Patient Records regulations: The Federal rules restrict any use of the information to criminally investigate or prosecute any alcohol or drug abuse patient.[facility] HospitalIn the event this information is protected by the Federal Confidentiality of Alcohol and Drug Abuse Patient Records regulations: The Federal rules restrict any use of the information to criminally investigate or prosecute any alcohol or drug abuse patient.[facility] HospitalIn the event this information is protected by the Federal Confidentiality of Alcohol and Drug Abuse Patient Records regulations: The Federal rules restrict any use of the information to criminally investigate or prosecute any alcohol or drug abuse patient.[facility] HospitalIn the event this information is protected by the Federal Confidentiality of Alcohol and Drug Abuse Patient Records regulations: The Federal rules restrict any use of the information to criminally investigate or prosecute any alcohol or drug abuse patient.[facility] HospitalIn the event this information is protected by the Federal Confidentiality of Alcohol and Drug Abuse Patient Records regulations: The Federal rules restrict any use of the information to criminally investigate or prosecute any alcohol or drug abuse patient.[facility] HospitalIn the event this information is protected by the Federal Confidentiality of Alcohol and Drug Abuse Patient Records regulations: The Federal rules restrict any use of the information to criminally investigate or prosecute any alcohol or drug abuse patient.[facility] HospitalIn the event this information is protected by the Federal Confidentiality of Alcohol and Drug Abuse Patient Records regulations: The Federal rules restrict any use of the information to criminally investigate or prosecute any alcohol or drug abuse patient.[facility] HospitalIn the event this information is protected by the Federal Confidentiality of Alcohol and Drug Abuse Patient Records regulations: The Federal rules restrict any use of the information to criminally investigate or prosecute any alcohol or drug abuse patient.[facility] HospitalIn the event this information is protected by the Federal Confidentiality of Alcohol and Drug Abuse Patient Records regulations: The Federal rules restrict any use of the information to criminally investigate or prosecute any alcohol or drug abuse patient.[facility] HospitalIn the event this information is protected by the Federal Confidentiality of Alcohol and Drug Abuse Patient Records regulations: The Federal rules restrict any use of the information to criminally investigate or prosecute any alcohol or drug abuse patient.[facility] HospitalIn the event this information is protected by the Federal Confidentiality of Alcohol and Drug Abuse Patient Records regulations: The Federal rules restrict any use of the information to criminally investigate or prosecute any alcohol or drug abuse patient.[facility] HospitalIn the event this information is protected by the Federal Confidentiality of Alcohol and Drug Abuse Patient Records regulations: The Federal rules restrict any use of the information to criminally investigate or prosecute any alcohol or drug abuse patient.[facility] Reason for Visit (unrecogniz ed section [...] complication Procedures LUNG VOLUMES Henok Martinez MD [address] [place] [address] Respiratory [place] [address] [place] [address] Referral ID Status Reason Start Date Expiration Date V isits Requested Visits Authorized [id number] Closed Auto-Generate d Referral 10/01/2022 10/31/2023 1 1 Specialty Diagnoses / Procedures Referred By Contac t Referred To [facility] RESPIRATORY [facility] Diagnoses Mild intermittent asthma without complication Procedures LUNG DIFFUSION CAPACITY (DLCO) DIFFUSING CAPACITY Henok Martinez MD [address] [place] [id number] [address] Referral ID Status Reason Start Date Expiration Date V isits Requested Visits Authorized [id number] Closed Auto-Generate d Referral 10/01/2022 10/31/2023 1 1 Specialty Diagnoses / Procedures Referred By Contac t Referred To [facility] RESPIRATORY [facility]ON Diagnoses Mild intermittent asthma without complication Procedures SPIROMETRY - BASELINE AND POST DILATOR BRNCDILAT RSPSE SPMTRY PRE&POST-BRNCDILAT ADMN Henok Martinez MD [address] [place] [address] [address] Referral ID Status Reason Start Date Expiration Date V isits Requested Visits Authorized [id number] Closed Auto-Generate d Referral 10/01/2022 10/31/2023 1 1 Reason Comments Results Reason Comments Refill Request Reason Comments Results Discuss results of P FT's Specialty Diagnoses / Procedures [facility] Diagnoses Chronic cough Procedures NITRIC OXIDE, EXHALED NITRIC OXIDE GAS DETERMINATION Nancy Medley MD [address] [facility] [place] [address] [address] Referral ID Status Reason Start Date Expiration Date V isits Requested Visits Authorized [id number] Closed Auto-Generate d Referral 11/16/2022 12/16/2023 1 1 Reason Comments New Patient Cough Specialty Diagnoses / Procedures Referred By Contac t Referred To Contact Pulmonary and Critical Care Medicine Diagnoses Cough, unspecified type Procedures CONSULT TO PULM/CRITICAL CARE OFFICE/OUTPATIENT NEW HIGH MDM 60-74 MINUTES Henok Martinez MD [address] [place] [address] Referral ID Status Reason Start Date Expiration Date V isits Requested Visits Authorized [id number] Closed PCP Requested Referral 10/26/2022 10/26/2023 1 1 Reason Comments Established Patient follow up cough Reason Comments Blood Pressure Check Reason Comments Blood Pressure Check Reason Comments Follow Up Reason Comments Well Woman Specialty Diagnoses / Procedures Referred By Kelli t Referred To Contact Gynecology Diagnoses History of uterine cancer Procedures CONSULT TO GYNECOLOGY OFFICE/OUTPATIENT NEW HIGH MDM 60-74 MINUTES Henok Martinez MD [address] [place] [address] Referral ID Status Reason Start Date Expiration Date V isits Requested Visits Authorized [id number] Closed PCP Requested Referral Auto-Generated Referral 01/25/2023 01/25/2024 1 1 Reason Comments 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 Type 2 N IDDM Specialty Diagnoses / Procedures Referred By Kelli bass Referred To Contact Ophthalmology Diagnoses Type 2 diabetes mellitus without complication, without long-term current use of insulin (HCC) Procedures CONSULT TO OPHTHALMOLOGY OFFICE/OUTPATIENT NEW [facility] 60-74 MINUTES Henok Martinez MD [address] [place] [address] Referral ID Status Reason Start Date Expiration Date V isits Requested Visits Authorized [id number] Closed PCP Requested Referral 01/25/2023 01/25/2024 1 1 Reason Comments Assessment Patient Education Specialty Diagnoses / Procedures Referred By Kelli bass Referred To Contact Nutrition Diagnoses Type 2 diabetes mellitus without complication, without long-term current use of insulin (HCC) Procedures CONSULT TO NUTRITION THERAPY MEDICAL NUTRITION ASSMT&IVNTJ INDIV EACH 15 [place] MEDICAL NUTRITION ASSMT&IVNTJ INDIV EACH 15 [place] MEDICAL NUTRITION ASSMT&IVNTJ INDIV EACH 15 [place] MEDICAL NUTRITION ASSMT&IVNTJ INDIV EACH 15 [place] [address] [place] [address] Referral ID Status Reason Start Date Expiration Date V isits Requested Visits Authorized [id number] Closed PCP Requested Referral 01/25/2023 01/25/2024 1 [...] IVCON CT PELVIS W/CONTRAST MATERIAL Sadia Ramsey APRN.CRATE BUILDER [address] [place] [address] [place] [address] Referral ID Status Reason Start Date Expiration Date V isits Requested Visits Authorized [id number] Closed Auto-Generate d Referral 02/08/2023 03/09/2024 1 1 Specialty Diagnoses / Procedures Referred By Contac t Referred To Contact CT IMAGING Diagnoses Chronic cough Abnormal chest x-ray Procedures CT CHEST WO IVCON DIAGNOSTIC COMPUTED TOMOGRAPHY THORAX W/O Nancy Hendrix MD [address] [place] [address] Ct Imaging [facility]95 Referral ID Status Reason Start Date Expiration Date V isits Requested Visits Authorized [id number] Closed Auto-Generate d Referral 11/16/2022 12/16/2023 1 [...] RADIOLOGIC EXAM SWALLOW FUNCTION CONTRAST STUDY Virginia Garcia, WEIGHER AND CHARGER.CRATE BUILDER [address] [place] [address] [place] [address] Referral ID Status Reason Start Date Expiration Date V isits Requested Visits Authorized [id number] Closed Auto-Generate d Referral 10/13/2024 11/12/2025 1 [...] 60 MINUTES Ashutosh Freeman MD [address] [facility] [address] [place] [address] Phone: tel: fax: Referral ID Status Reason Start Date Expiration Date V isits Requested Visits Authorized [id number] Closed PCP Requested Referral 01/21/2025 01/21/2026 1 1 Reason Comments avs 01/25 Reason Comments Constipation Reason Onset Date Comments Transition Of Care 01/26/2025 Initial Reason Comments Ambulatory Social Work Food and Transpor tation Reason Comments Chemotherapy Treatment Specialty Diagnoses / Procedures Referred By Contac t Referred To Contact Diagnoses 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) Juan Miguel Yusuf MD [address] [place] [address] Phone: tel: Juan Miguel Yusfu MD [address] [place] [address] Phone: tel: Referral ID Status Reason Start Date Expiration Date V isits Requested Visits Authorized [id number] Authorized 01/27/2025 04/27/2025 99 99 Reason Comments Social Work Services Reason Comments glucometer Reason Comments Hospital F/U Having issue with to oth and trying to get into free dental clinic very soon. 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 Specialist - Hospital Follow Up Reason Comments Future Appointment Reason Comments Appt Needs Rescheduled Reason Comments Hospital F/U Reason Onset Date Comments Refill Request 03/08/2025 Reason Onset Date Comments Cabin Man- Other 03/10/2025 Chart review Reason Comments Patient [...] W/CONTRAST Juan Miguel Yusuf MD [address] [place] [address] Phone: tel: [facility] IMAGING [facility]95 Referral ID Status Reason Start Date Expiration Date V isits Requested Visits Authorized [id number] Closed Auto-Generate d Referral 05/25/2025 06/24/2026 1 1 Reason Onset Date Comments Refill Request 05/28/2025 Care Teams (unrecognized sec tion and content) Circulation Sales Representative Relationship Specialty Start Date End Date Henok Martinez MD [address] [place] [address] PCP - General Family Practice 09/14/21 Circulation Sales Representative Relationship Specialty Start Date End Date Henok Martinez MD [address] [place] [address] PCP - General Family Practice 09/14/21 Circulation Sales Representative Relationship Specialty Start Date End Date Henok Martinez MD [address] [place] [address] PCP - General Family Practice 09/14/21 Circulation Sales Representative Relationship Specialty Start Date End Date Henok Martinez MD [address] [place] [address] PCP - General Family Practice 09/14/21 Circulation Sales Representative Relationship Specialty Start Date End Date Henok Martinez MD [address] [place] [address] PCP - General Family Practice 09/14/21 Circulation Sales Representative Relationship Specialty Start Date End Date Henok Martinez MD [address] [place] [address] PCP - General Family Medicine 09/14/21 Circulation Sales Representative Relationship Specialty Start Date End Date Henok Martinez MD [address] [place] [address] PCP - General Family Medicine 09/14/21 Circulation Sales Representative Relationship Specialty Start Date End Date Henok Martinez MD [facility] [place] [address] PCP - General Family Medicine 09/14/21 Circulation Sales Representative Relationship Specialty Start Date End Date Henok Martinez MD [facility] [place] [address] PCP - General Family Medicine 09/14/21 Circulation Sales Representative Relationship Specialty Start Date End Date Henok Martinez MD [address] [place] [address] PCP - General Family Medicine 09/14/21 Circulation Sales Representative Relationship Specialty Start Date End Date Henok Martinez MD [address] [place] [address] PCP - General Family Medicine 09/14/21 Circulation Sales Representative Relationship Specialty Start Date End Date Henok Martinez MD [address] [place] [address] PCP - General Family Medicine 09/14/21 Circulation Sales Representative Relationship Specialty Start Date End Date Henok Martinez MD [address] [place] [address] PCP - General Family Medicine 09/14/21 Circulation Sales Representative Relationship Specialty Start Date End Date Henok Martinez MD [address] [place] [address] PCP - General Family Medicine 09/14/21 Circulation Sales Representative Relationship Specialty Start Date End Date Henok Martinez MD [address] [place] [address] PCP - General Family Medicine 09/14/21 Circulation Sales Representative Relationship Specialty Start Date End Date Henok Martinez MD [address] [place] [address] PCP - General Family Medicine 09/14/21 Circulation Sales Representative Relationship Specialty Start Date End Date Henok Martinez MD [address] [place] [address] PCP - General Family Medicine 09/14/21 Circulation Sales Representative Relationship Specialty Start Date End Date Henok Martinez MD [address] [place] [address] PCP - General Family Medicine 09/14/21 Circulation Sales Representative Relationship Specialty Start Date End Date Henok Martinez MD [address] [place] [address] PCP - General Family Medicine 09/14/21 Circulation Sales Representative Relationship Specialty Start Date End Date Henok Martinez MD [address] [place] [address] PCP - General Family Medicine 09/14/21 Team [...] Provider Active Dr. Dick Love , DO Emergency Provider Active Circulation Sales Representative Relationship Specialty Start Date End Date Henok Martinez MD [address] [place] [address] PCP - General Family Medicine 09/14/21 Circulation Sales Representative Relationship Specialty Start Date End Date Henok Martinez MD [address] [place] [address] PCP - General Family Medicine 09/14/21 Team Status: Inactive Member Role Status Dates Dr. Henok Martinez MD Primary Care Provider Active Dr. Dick Love , DO Attending Provider, Emergency Pr ovider Active Team Status: Inactive Member Role Status Dates Dr. Henok Martinez MD Primary Care Provider Active Dr. Keenan Velazco , DO Attending Provider, Emergency P rovider Active Team Status: Inactive Member Role Status Dates Dr. Henok Martinez MD Primary Care Provider Active Dr. Gabe Foster , Emergency Provider Active Circulation Sales Representative Relationship Specialty Start Date End Date Henok Martinez MD [address] [place] [address] PCP - General Family Medicine 09/14/21 Circulation Sales Representative Relationship Specialty Start Date End Date Henok Martinez MD [address] [place] [address] PCP - General Family Medicine 09/14/21 Circulation Sales Representative Relationship Specialty Start Date End Date Henok Martinez MD [address] [place] [address] PCP - General Family Medicine 09/14/21 Circulation Sales Representative Relationship Specialty Start Date End Date Henok Martinez MD [address] [place] [address] PCP - General Family Medicine 09/14/21 Circulation Sales Representative Relationship Specialty Start Date End Date Henok Martinez MD [address] [place], [place] [address] PCP - General Family Medicine 09/14/21 Team [...] MD Attending Provider, Emergency Provi morales Active Circulation Sales Representative Relationship Specialty Start Date End Date Henok Martinez MD [address] [place] [address] PCP - General Family Medicine 09/14/21 Circulation Sales Representative Relationship Specialty Start Date End Date Henok Martinez MD [address] [place], [place] [address]5621 PCP - General Family Medicine 09/14/21 Circulation Sales Representative Relationship Specialty Start Date End Date Henok Martinez MD [address] [place], [place] 119[address]41 PCP - General Family Medicine 09/14/21 Circulation Sales Representative Relationship Specialty Start Date End Date Henok Martinez MD [address] [place], [place] [id number] PCP - General Family Medicine 09/14/21 Circulation Sales Representative Relationship Specialty Start Date End Date Henok Martinez MD [address] [place], [place] [address] PCP - General Family Medicine 09/14/21 Circulation Sales Representative Relationship Specialty Start Date End Date Henok Martinez MD [address] [place], [place] [address]71 PCP - General Family Medicine 09/14/21 Circulation Sales Representative Relationship Specialty Start Date End Date Henok Martinez MD [address] [place] [address] PCP - General Family Medicine 09/14/21 Circulation Sales Representative Relationship Specialty Start Date End Date Henok Martinez MD [address] [place] [address] PCP - General Family Medicine 09/14/21 Circulation Sales Representative Relationship Specialty Start Date End Date Henok Martinez MD [address] [place] [address] PCP - General Family Medicine 09/14/21 Circulation Sales Representative Relationship Specialty Start Date End Date Henok Martinez MD [address] [place] [address] PCP - General Family Medicine 09/14/21 Circulation Sales Representative Relationship Specialty Start Date End Date Henok Martinez MD [address] [place] [address] PCP - General Family Medicine 09/14/21 Circulation Sales Representative Relationship Specialty Start Date End Date Henok Martinez MD [address] [place], [place] [address]31 PCP - General Family Medicine 09/14/21 Circulation Sales Representative Relationship Specialty Start Date End Date Henok Martinez MD [address] [place] [address] PCP - General Family Medicine 09/14/21 Circulation Sales Representative Relationship Specialty Start Date End Date Henok Martinez MD [address] [place] [address] PCP - General Family Medicine 09/14/21 Circulation Sales Representative Relationship Specialty Start Date End Date Henok Martinez MD [address] [place] [address] PCP - General Family Medicine 09/14/21 Circulation Sales Representative Relationship Specialty Start Date End Date Henok Martinez MD [address] [place] [address] PCP - General Family Medicine 09/14/21 Circulation Sales Representative Relationship Specialty Start Date End Date Henok Martinez MD [address] [place] [address] PCP - General Family Medicine 09/14/21 Clarita Boggs APRN.CRATE BUILDER [address] [place] [address] Ems Driver Family Medicine 10/05/24 Virginia Garcia WEIGHER AND CHARGER.CRATE BUILDER [address] [place] [address] Ems Driver Family Medicine 10/05/24 Circulation Sales Representative Relationship Specialty Start Date End Date Henok Martinez MD [address] [place] [address] PCP - General Family Medicine 09/14/21 Clarita Boggs APRN.CRATE BUILDER [address] [place] [address] Ems Driver Family [facility] 10/05/24 Virginia Garcia WEIGHER AND CHARGER.CRATE BUILDER [address] [facility] [address] [facility] 10/05/24 Circulation Sales Representative Relationship Specialty Start Date End Date Henok Martinez MD [address] [facility] [facility] [place] [address] PCP - General Family Medicine 09/14/21 Clarita Boggs APRN.CRATE BUILDER [address] [facility] [place] [address] [facility] 10/05/24 Virginia Garcia WEIGHER AND CHARGER.CRATE BUILDER [address] [place] [address] [facility] 10/05/24 Circulation Sales Representative Relationship Specialty Start Date End Date Henok Martinez MD [address] [facility] [place] [address] PCP - General Family Medicine 09/14/21 Clarita Boggs WEIGHER AND CHARGER.CRATE BUILDER [address] [facility] [place] [address] [facility] Medicine 10/05/24 Virginia Garcia WEIGHER AND CHARGER.CRATE BUILDER [address] [place] [address] [facility] Medicine 10/05/24 Circulation Sales Representative Relationship Specialty Start Date End Date Henok Martinez MD [address] [facility] [place] [address] [phone] PCP - General Family Medicine 09/14/21 Clarita Boggs, WEIGHER AND CHARGER.CRATE BUILDER [address] [place] [address] Ems Driver Family [facility] 10/05/24 Virginia Garcia WEIGHER AND CHARGER.CRATE BUILDER [address] [facility] [place] [address] [facility] 10/05/24 Circulation Sales Representative Relationship Specialty Start Date End Date Henok Martinez MD [address] [place] [address] PCP - General Family Medicine 09/14/21 Clarita Boggs WEIGHER AND CHARGER.CRATE BUILDER [address] [facility] [place] [address] [facility] 10/05/24 Virginia Garcia WEIGHER AND CHARGER.CRATE BUILDER [address] [place] [address] [facility] 10/05/24 Circulation Sales Representative Relationship Specialty Start Date End Date Henok Martinez MD [address] [facility] [place] [address] PCP - General Family Medicine 09/14/21 Clarita Boggs WEIGHER AND CHARGER.CRATE BUILDER [address] [facility] [place] [address] [facility] Medicine 10/05/24 Virginia Garcia WEIGHER AND CHARGER.CRATE BUILDER [address] [facility] [place] [address] [facility] 10/05/24 Circulation Sales Representative Relationship Specialty Start Date End Date Henok Martinez MD [address] [facility] [place] [address] PCP - General Family Medicine 09/14/21 Clarita Boggs APRN.CRATE BUILDER [address] [place] [address] Ems Driver Family Medicine 10/05/24 Virginia Garcia APRN.CRATE BUILDER [address] [facility] [place] [address] [facility] 10/05/24 Circulation Sales Representative Relationship Specialty Start Date End Date Henok Martinez MD [address] [facility] [place] [address] PCP - General Family Medicine 09/14/21 Clarita Boggs APRN.CRATE BUILDER [address] [place] [address] Ems Driver Family Medicine 10/05/24 Virginia Garcia APRN.CRATE BUILDER [address] [facility] [place] [address] [facility] 10/05/24 Circulation Sales Representative Relationship Specialty Start Date End Date Henok Martinez MD [address] [facility] [address] PCP - General Family Medicine 09/14/21 Clarita Boggs APRN.CRATE BUILDER [address] [place] [address] Ems Driver Family Medicine 10/05/24 Virginia Garcia APRN.CRATE BUILDER [address] [facility] [address] Ems Driver Family Medicine 10/05/24 Circulation Sales Representative Relationship Specialty Start Date End Date Henok Martinez MD [address] [place] [address] PCP - General Family Medicine 09/14/21 Clarita Boggs APRN.CRATE BUILDER [address] [place] [address] Ems Driver Family Medicine 10/05/24 Virginia Garcia APRN.CRATE BUILDER [address] [place] [address] [facility] 10/05/24 Iona Paul RN [address] [place] [address] [employer] 01/04/25 Circulation Sales Representative Relationship Specialty Start Date End Date Henok Martinez MD [address] [place] [address] PCP - General Family Medicine 09/14/21 Clariat Boggs APRN.CRATE BUILDER [address] [place] [address] Ems Driver Family Medicine 10/05/24 Virginia Garcia WEIGHER AND CHARGER.CRATE BUILDER [address] [place] [address] Ems Driver Family [facility] 10/05/24 Circulation Sales Representative Relationship Specialty Start Date End Date Henok Martinez MD [address] [place] [address] PCP - General Family Medicine 09/14/21 Clarita Boggs APRN.CRATE BUILDER [address] [place] [address] [facility] 10/05/24 Virginia Garcia, WEIGHER AND CHARGER.CRATE BUILDER [address] [place] [address] [facility] 10/05/24 Team Status: Inactive Member Role [...] End: January 14, 2025 Dr. Hung Remy DO Emergency Provider [...] Provider Active Star t: January 14, 2025 Circulation Sales Representative Relationship Specialty Start Date End Date Henok Martinez MD [address] [place] [address] PCP - General Family Medicine 09/14/21 Clarita Boggs, WEIGHER AND CHARGER.CRATE BUILDER [address] [place], [place] [address] Ems Driver Family Medicine 10/05/24 Virginia Garcia, WEIGHER AND CHARGER.CRATE BUILDER [address] [place], [place] [id number] Ems Driver [facility] 10/05/24 Danielle Dais RN Transitional Sales Merchandising Specialist 01/25/25 Juan Miguel Yusuf MD [address] [place] [address] Hematology/Oncology 01/25/25 Oma Linton, MAGNUS [address] [place] [address] Specialty Sales Merchandising Specialist Hematology/Oncology 01/25/25 Circulation Sales Representative Relationship Specialty Start Date End Date Henok Martinez MD [address] [place] [address] PCP - General Family Medicine 09/14/21 Clarita Boggs APRN.CRATE BUILDER [address] [place] [address] [facility] 10/05/24 Virginia Garcia WEIGHER AND CHARGER.CRATE BUILDER [address] [facility] [place] [address] [facility] 10/05/24 Danielle Dias RN Transitional Sales Merchandising Specialist 01/25/25 Juan Miguel Yusuf MD [address] [place] [address] Hematology/Oncology 01/25/25 Oma Linton, MAGNUS [address] [place] [address] Specialty Sales Merchandising Specialist Hematology/Oncology 01/25/25 Circulation Sales Representative Relationship Specialty Start Date End Date Henok Martinez MD [address] [place] [address] PCP - General Family Medicine 09/14/21 Clarita Boggs APRN.CRATE BUILDER [address] [facility] [place] [address] [facility] 10/05/24 Virginia Garcia WEIGHER AND CHARGER.CRATE BUILDER [address] [place] [address] Ems Driver Family [facility] 10/05/24 Danielle Dias, lead refinery supervisor Coordinator 01/25/25 Juan Miguel Yusuf MD [address] [facility] [place] [address] Hematology/Oncology 01/25/25 Oma Linton RN [address] [facility] [place] [address] Specialty Sales Merchandising Specialist Hematology/Oncology 01/25/25 Circulation Sales Representative Relationship Specialty Start Date End Date Henok Martinez MD [address] [place] [address] PCP - General Family Medicine 09/14/21 Clarita Boggs APRN.CRATE BUILDER [address] [facility] [place] [address] [facility] 10/05/24 Virginia Garcia WEIGHER AND CHARGER.CRATE BUILDER [address] [facility] [place] [address] [facility] 10/05/24 Danielle Dias lead refinery supervisor Coordinator 01/25/25 Juan Miguel Yusuf MD [address] [place] [place] [address] Hematology/Oncology 01/25/25 Oma Linton, MAGNUS [address] [place] [address] Specialty Sales Merchandising Specialist Hematology/Oncology 01/25/25 Circulation Sales Representative Relationship Specialty Start Date End Date Henok Martinez MD [address] [facility] [place] [address] PCP - General Family Medicine 09/14/21 Clarita Boggs APRN.CRATE BUILDER [address] [place] [address] Ems Driver Family Medicine 10/05/24 Virginia Garcia APRN.CRATE BUILDER [address] [facility] [place] [address] Ems Driver Family Medicine 10/05/24 Danielle Dias RN Transitional Sales Merchandising Specialist 01/25/25 Juan Miguel Yusuf MD [address] [place] [address] Hematology/Oncology 01/25/25 Oma Linton RN [address] [place] [address] Specialty Sales Merchandising Specialist Hematology/Oncology 01/25/25 Circulation Sales Representative Relationship Specialty Start Date End Date Henok Martinez MD [address] [facility] [place] [address] PCP - General Family Medicine 09/14/21 Clarita Boggs, WEIGHER AND CHARGER.CRATE BUILDER [address] [place] [address] Ems Driver Family Medicine 10/05/24 Virginia Garcia, WEIGHER AND CHARGER.CRATE BUILDER [address] [facility] [place] [address] Ems Driver Family [facility] 10/05/24 Danielle Dias, lead refinery supervisor Coordinator 01/25/25 Juan Miguel Yusuf MD [address] [place] [address] Hematology/Oncology 01/25/25 Oma Linton, RN [address] [place] [address] Specialty Sales Merchandising Specialist Hematology/Oncology 01/25/25 Circulation Sales Representative Relationship Specialty Start Date End Date Henok Martinez MD [address] [facility] [place] [address] PCP - General Family Medicine 09/14/21 Clarita Boggs, WEIGHER AND CHARGER.CRATE BUILDER [address] [place] [address] [facility] 10/05/24 Virginia Garcia, WEIGHER AND CHARGER.CRATE BUILDER [address] [facility] [place] [address] [facility] Family [facility] 10/05/24 Danielle Dias lead refinery supervisor Coordinator 01/25/25 Juan Miguel Yusuf MD [address] [place] [address] Hematology/Oncology 01/25/25 Oma Linton, MAGNUS [address] [place] [address] Specialty Sales Merchandising Specialist Hematology/Oncology 01/25/25 Escobar Atkins LSW 01/27/25 Circulation Sales Representative Relationship Specialty Start Date End Date Henok Martinez MD [address] [place] [address] PCP - General Family Medicine 09/14/21 Clarita Boggs APRN.CRATE BUILDER [address] [place] [address] Ems Driver Family Medicine 10/05/24 Virginia Garcia WEIGHER AND CHARGER.CRATE BUILDER [address] [place] [address] Ems Driver Family Medicine 10/05/24 Danielle Dias RN Transitional Sales Merchandising Specialist 01/25/25 Juan Miguel Yusuf MD [address] [place] [address] Hematology/Oncology 01/25/25 Oma Linton RN [address] [place] [address] Specialty Sales Merchandising Specialist Hematology/Oncology 01/25/25 Escobar Atkins, [facility] 01/27/25 Circulation Sales Representative Relationship Specialty Start Date End Date Henok Martinez MD [address] [place] [address] PCP - General Family Medicine 09/14/21 Clarita Boggs APRN.CRATE BUILDER [address] [place] [address] Ems Driver Family Medicine 10/05/24 Virginia Garcia WEIGHER AND CHARGER.CRATE BUILDER [address] [facility] [place] [address] Ems Driver Family Medicine 10/05/24 Danielle Dias RN Transitional Sales Merchandising Specialist 01/25/25 Juan Miguel Yusuf MD [address] [place] [address] Hematology/Oncology 01/25/25 Oma Linton, MAGNUS [address] [place] [address] Specialty Sales Merchandising Specialist Hematology/Oncology 01/25/25 Escobar Atkins, PRODUCT DEMONSTRATOR 01/27/25 Circulation Sales Representative Relationship Specialty Start Date End Date Henok Martinez MD [address] [place] [address] PCP - General Family Medicine 09/14/21 Clarita Boggs APRN.CRATE BUILDER [address] [place] [address] [facility] 10/05/24 Virginia Garcia, WEIGHER AND CHARGER.CRATE BUILDER [address] [place] [address] [facility] 10/05/24 Danielle Dias RN Transitional Sales Merchandising Specialist 01/25/25 Juan Miguel Yusuf MD [address] [place] [address] Hematology/Oncology 01/25/25 Oma Linton RN [address] [place] [address] Specialty Sales Merchandising Specialist Hematology/Oncology 01/25/25 Escobar Atkins, PRODUCT DEMONSTRATOR 01/27/25 Circulation Sales Representative Relationship Specialty Start Date End Date Henok Martinez MD [address] [facility] [place] [address] PCP - General Family Medicine 09/14/21 Clarita Boggs APRN.CRATE BUILDER [address] [place] [address] Ems Driver Family Medicine 10/05/24 Virginia Garcia APRN.CRATE BUILDER [address] [facility] [place] [address] Ems Driver Family Medicine 10/05/24 Danielle Dias RN Transitional Sales Merchandising Specialist 01/25/25 Juan Miguel Yusuf MD [address] [place] [address] Hematology/Oncology 01/25/25 Oma Linton, MAGNUS [address] [place] [address] Specialty Sales Merchandising Specialist Hematology/Oncology 01/25/25 Escobar Atkins LSW 01/27/25 Circulation Sales Representative Relationship Specialty Start Date End Date Henok Martinez MD [address] [facility] [place] [address] PCP - General Family Medicine 09/14/21 Clarita Boggs APRN.CRATE BUILDER [address] [place] [address] Ems Driver Family Medicine 10/05/24 Virginia Garcia APRN.CRATE BUILDER [address] [facility] [place] [address] Ems Driver Family Medicine 10/05/24 Danielle Dias RN Transitional Sales Merchandising Specialist 01/25/25 Juan Miguel Yusuf MD [address] [place] [address] Hematology/Oncology 01/25/25 Oma Linton, RN [address] [place] [address] Specialty Sales Merchandising Specialist Hematology/Oncology 01/25/25 Escobar Atkins LSW 01/27/25 Circulation Sales Representative Relationship Specialty Start Date End Date Henok Martinez MD [address] [place] [address] PCP - General Family Medicine 09/14/21 Clarita Boggs, WEIGHER AND CHARGER.CRATE BUILDER [address] [place] [address] Ems Driver Family Medicine 10/05/24 Virginia Garcia, WEIGHER AND CHARGER.CRATE BUILDER [address] [place] [address] Ems Driver Family Medicine 10/05/24 Danielle Dias lead refinery supervisor Coordinator 01/25/25 Juan Miguel Yusuf MD [address] [place] [address] Hematology/Oncology 01/25/25 Oma Linton, MAGNUS [address] [place] [address] Specialty Sales Merchandising Specialist Hematology/Oncology 01/25/25 Escobar Atkins LSW 01/27/25 Circulation Sales Representative Relationship Specialty Start Date End Date Henok Martinez MD [address] [place] [address] PCP - General Family Medicine 09/14/21 Clarita Boggs, SHY.CRATE BUILDER [address] [facility] [place] [address] Ems Driver Family [facility] 10/05/24 Virginia Garcia APRN.CRATE BUILDER [address] [facility] [place] [address] Ems Driver Family Medicine 10/05/24 Danielle Dias, lead refinery supervisor Coordinator 01/25/25 Juan Miguel Yusuf MD [address] [place] [facility] [place] [address] Hematology/Oncology 01/25/25 Oma Linton RN [address] [place] [address] Specialty Sales Merchandising Specialist Hematology/Oncology 01/25/25 Ayaz Bazzi MD 1 [place] [address] General Surgery 02/04/25 Circulation Sales Representative Relationship Specialty Start Date End Date Henok Martinez MD [address] [place] [address] PCP - General Family Medicine 09/14/21 Clarita Boggs, WEIGHER AND CHARGER.CRATE BUILDER [address] [facility] [place] [address] Ems Driver Family [facility] 10/05/24 Virginia Garcia WEIGHER AND CHARGER.CRATE BUILDER [address] [facility] [place] [address] Ems Driver Family Medicine 10/05/24 Danielle Dias RN Transitional Sales Merchandising Specialist 01/25/25 Juan Miguel Yusuf MD [address] [place] [address] Hematology/Oncology 01/25/25 Oma Linton, RN [address] [place] [address] Specialty Sales Merchandising Specialist Hematology/Oncology 01/25/25 Ayaz Bazzi MD 1 [place] [address] General Surgery 02/04/25 Rosa Anguiano LISW [address] [place] [address] Press Tender Incendiary Grenade Hematology/Oncology 02/05/25 Circulation Sales Representative Relationship Specialty Start Date End Date Henok Martinez MD [address] [place] [address] PCP - General Family Medicine 09/14/21 Clarita Boggs, WEIGHER AND CHARGER.CRATE BUILDER [address] [place] [address] Ems Driver Family Medicine 10/05/24 Virginia Garcia, WEIGHER AND CHARGER.CRATE BUILDER [address] [place] [address] Ems Driver Family Medicine 10/05/24 Danielle Dias RN Transitional Sales Merchandising Specialist 01/25/25 Juan Miguel Yusuf MD [address] [place] [address] Hematology/Oncology 01/25/25 Oma Linton, MAGNUS [address] [place] [address] Specialty Sales Merchandising Specialist Hematology/Oncology 01/25/25 Ayaz Bazzi MD 1 [place], [place] [id number] General Surgery 02/04/25 Rosa Anguiano, JOSÉ [address] [facility] [place] [address] Press Tender Incendiary Grenade Hematology/Oncology 02/05/25 Circulation Sales Representative Relationship Specialty Start Date End Date Henok Martinez MD [address] [facility] [place] [address] PCP - General Family Medicine 09/14/21 Clarita Boggs, WEIGHER AND CHARGER.CRATE BUILDER [address] [facility] [place] [address] Ems Driver Family Medicine 10/05/24 Virginia Garcia, WEIGHER AND CHARGER.CRATE BUILDER [address] [facility] [place] [address] Ems Driver Family Medicine 10/05/24 Danielle Dias RN Transitional Sales Merchandising Specialist 01/25/25 Juan Miguel Yusuf MD [address] [facility] [place] [address] Hematology/Oncology 01/25/25 Oma Linton RN [address] [place] [address] Specialty Sales Merchandising Specialist Hematology/Oncology 01/25/25 Ayaz Bazzi MD 1 [place], [place] [id number] General Surgery 02/04/25 Rosa Anguiano LISW [address] [facility] [place] [address] Press Tender Incendiary Grenade Hematology/Oncology 02/05/25 Circulation Sales Representative Relationship Specialty Start Date End Date Henok Martinez MD [address] [facility] [place] [address] PCP - General Family Medicine 09/14/21 Clarita Boggs APRN.CRATE BUILDER [address] [place] [address] Ems Driver Family Medicine 10/05/24 Virginia Garcia APRN.CRATE BUILDER [address] [facility] [place] [address] Ems Driver Family Medicine 10/05/24 Danielle Dias RN Transitional Sales Merchandising Specialist 01/25/25 Juan Miguel Yusuf MD [address] [facility] [address] Hematology/Oncology 01/25/25 Oma Linton RN [address] [place] [address] Specialty Sales Merchandising Specialist Hematology/Oncology 01/25/25 Ayaz Bazzi MD 1 [place] [address] General Surgery 02/04/25 Rosa Anguiano LISW [address] [place] [address] Press Tender Incend[employer] Grenade Hematology/Oncology 02/05/25 Circulation Sales Representative Relationship Specialty Start Date End Date Henok Martinez MD [address] [facility] [place] [address] PCP - General Family Medicine 09/14/21 Clarita Boggs APRN.CRATE BUILDER [address] [facility] [place] [address] Ems Driver Family Medicine 10/05/24 Virginia Garcia WEIGHER AND CHARGER.CRATE BUILDER [address] [place] [address] Ems Driver Family Medicine 10/05/24 Danielle Dias, lead refinery supervisor Coordinator 01/25/25 Juan Miguel Yusuf MD [address] [facility] [address] Hematology/Oncology 01/25/25 Oma Linton RN [address] [place] [address] Specialty Sales Merchandising Specialist Hematology/Oncology 01/25/25 Aayz Bazzi MD 1 [place], [place] [id number] General Surgery 02/04/25 Rosa Anguiano LISW [address] [facility] [place] [address] Press Tender Incendiary Grenade Hematology/Oncology 02/05/25 Circulation Sales Representative Relationship Specialty Start Date End Date Henok Martinez MD [address] [place] [address] PCP - General Family Medicine 09/14/21 Clarita Boggs, WEIGHER AND CHARGER.CRATE BUILDER [address] [facility] [place] [address] Ems Driver Family Medicine 10/05/24 Virginia Garcia, WEIGHER AND CHARGER.CRATE BUILDER [address] [place] [address] Ems Driver Family Medicine 10/05/24 Danielle Dias, lead refinery supervisor Coordinator 01/25/25 Juan Miguel Yusuf MD [address] [place] [address] Hematology/Oncology 01/25/25 Oma Linton RN [address] [place] [address] Specialty Sales Merchandising Specialist Hematology/Oncology 01/25/25 Ayaz Bazzi MD 1 [place], [place] [id number] General Surgery 02/04/25 Rosa Anguiano LISW [address] [place] [address] Press Tender Incendiary Grenade Hematology/Oncology 02/05/25 Circulation Sales Representative Relationship Specialty Start Date End Date Henok Martinez MD [address] [place] [address] PCP - General Family Medicine 09/14/21 Clarita Boggs APRN.CRATE BUILDER [address] [place] [address] Ems Driver Family Medicine 10/05/24 Virginia Garcia APRN.CRATE BUILDER [address] [place] [address] Ems Driver Family Medicine 10/05/24 Juan Miguel Yusuf MD [address] [place] [address] Hematology/Oncology 01/25/25 Oma Linton RN [address] [facility] [place] [address] Specialty Sales Merchandising Specialist Hematology/Oncology 01/25/25 Ayaz Bazzi MD 1 [place], [place] [id number] General Surgery 02/04/25 Rosa Anguiano LISW [address] [facility] [place] [address] Press Tender Incendiary Grenade Hematology/Oncology 02/05/25 Radha Cagle, heat treat puller International First Officer 02/15/25 Circulation Sales Representative Relationship Specialty Start Date End Date Henok Martinez MD [address] [facility] [place] [address] PCP - General Family Medicine 09/14/21 Clarita Boggs APRN.CRATE BUILDER [address] [facility] [place] [address] Ems Driver Family [facility] 10/05/24 Virginia Garcia WEIGHER AND CHARGER.CRATE BUILDER [address] [place] [address] Ems Driver Family [facility] 10/05/24 Juan Miguel Yusuf MD [address] [place] [address] Hematology/Oncology 01/25/25 Oma Linton RN [address] [place] [address] Specialty Sales Merchandising Specialist Hematology/Oncology 01/25/25 Ayaz Bazzi MD 1 [place] [address] General Surgery 02/04/25 Rosa Anguiano LISW [address] [place] [place] [address] Press Tender Incendiary Grenade Hematology/Oncology 02/05/25 Radha Cagle, heat treat puller International First Officer 02/15/25 Circulation Sales Representative Relationship Specialty Start Date End Date Henok Martinez MD [address] [facility], [place] [address] PCP - General Family Medicine 09/14/21 Clarita Boggs APRN.CRATE BUILDER [address] [place] [address] Ems Driver Family Medicine 10/05/24 Virginia Garcia APRN.CRATE BUILDER [address] [facility] [place] [address] Ems Driver Family Medicine 10/05/24 Juan Miguel Yusuf MD [address] [place] [address] Hematology/Oncology 01/25/25 Oma Linton RN [address] [place] [address] Specialty Sales Merchandising Specialist Hematology/Oncology 01/25/25 Ayaz Bazzi MD 1 [place], [place] [id number] General Surgery 02/04/25 Rosa Anguiano LISW [address] [place] [address] Press Tender Incendiary Grenade Hematology/Oncology 02/05/25 Radha Cagle heat treat puller International First Officer 02/15/25 Circulation Sales Representative Relationship Specialty Start Date End Date Henok Martinez MD [address] [facility] [place] [address] PCP - General Family Medicine 09/14/21 Clarita Boggs APRN.CRATE BUILDER [address] [place] [address] Ems Driver Family Medicine 10/05/24 Virginia Garcia APRN.CRATE BUILDER [address] [place] [address] Ems Driver Family Medicine 10/05/24 Juan Miguel Yusuf MD [address] [place] [address] Hematology/Oncology 01/25/25 Oma Linton, MAGNUS [address] [place] [address] Specialty Sales Merchandising Specialist Hematology/Oncology 01/25/25 Ayaz Bazzi MD 1 [place] [address] General Surgery 02/04/25 Rosa Anguiano LISW [address] [place] [address] Press Tender Inc[employer] Grenade Hematology/Oncology 02/05/25 Radha Cagle heat treat puller International First Officer 02/15/25 Circulation Sales Representative Relationship Specialty Start Date End Date Henok Martinez MD [address] [place] [address] PCP - General Family Medicine 09/14/21 Clarita Boggs, WEIGHER AND CHARGER.CRATE BUILDER [address] [place] [address] Ems Driver Family Medicine 10/05/24 Virginia Garcia, WEIGHER AND CHARGER.CRATE BUILDER [address] [place] [address] Ems Driver Family Medicine 10/05/24 Juan Miguel Yusuf MD [address] [place] [address] Hematology/Oncology 01/25/25 Oma Linton RN [address] [place] [address] Specialty Sales Merchandising Specialist Hematology/Oncology 01/25/25 Ayaz Bazzi MD 1 [place], [place] [id number] General Surgery 02/04/25 Rosa Anguiano LISW [address] [place] [address] Press Tender Inc[employer] Grenade Hematology/Oncology 02/05/25 Radha Cagle heat treat puller International First Officer 02/15/25 Circulation Sales Representative Relationship Specialty Start Date End Date Henok Martinez MD [address] [place] [address] PCP - General Family Medicine 09/14/21 Clarita Boggs, SHY.CRATE BUILDER [address] [place] [address] Ems Driver Family Medicine 10/05/24 Virginia Garcia, WEIGHER AND CHARGER.CRATE BUILDER [address] [place] [address] Ems Driver Family Medicine 10/05/24 Juan Miguel Yusuf MD [address] [place] [address] Hematology/Oncology 01/25/25 Oma Linton RN [address] [place] [address] Specialty Sales Merchandising Specialist Hematology/Oncology 01/25/25 Ayaz Bazzi MD 1 [place], [place] [id number] General Surgery 02/04/25 Rosa Anguiano LISW [address] [place] [address] Press Tender Incendiary Grenade Hematology/Oncology 02/05/25 Radha Cagle, heat treat puller International First Officer 02/15/25 Circulation Sales Representative Relationship Specialty Start Date End Date Henok Martinez MD [address] [facility] [place] [address] PCP - General Family Medicine 09/14/21 Clraita Boggs, WEIGHER AND CHARGER.CRATE BUILDER [address] [facility] [address] Ems Driver Family [facility] 10/05/24 Virginia Garcia, WEIGHER AND CHARGER.CRATE BUILDER [address] [facility] [place] [address] Ems Driver Family [facility] 10/05/24 Juan Miguel Yusuf MD [address] [facility] [place] [address] Hematology/Oncology 01/25/25 Oma Linton RN [address] [facility] [place] [address] Specialty Sales Merchandising Specialist Hematology/Oncology 01/25/25 Ayaz Bazzi MD 1 [place] [address] General Surgery 02/04/25 Rosa Anguiano LISW [address] [place] [address] Press Tender Incendiary Grenade Hematology/Oncology 02/05/25 Radha Cagle, heat treat puller International First Officer 02/15/25 Circulation Sales Representative Relationship Specialty Start Date End Date Henok Martinez MD [address] [facility] [place] [address] PCP - General Family Medicine 09/14/21 Clarita Boggs APRN.CRATE BUILDER [address] [facility] [place] [address] Ems Driver Family Medicine 10/05/24 Virginia Garcia APRN.CRATE BUILDER [address] [facility] [place] [address] Ems Driver Family Medicine 10/05/24 Juan Miguel Yusuf MD [address] [facility] [address] Hematology/Oncology 01/25/25 Oma Linton RN [address] [facility] [place] [address] Specialty Sales Merchandising Specialist Hematology/Oncology 01/25/25 Ayaz Bazzi MD 1 [place] [address] General Surgery 02/04/25 Rosa Anguiano LISW [address] [facility] [place] [address] Press Tender Inc[employer] Grenade Hematology/Oncology 02/05/25 Radha Cagle heat treat puller [employer] First Officer 02/15/25 Circulation Sales Representative Relationship Specialty Start Date End Date Henok Martinez MD [address] [facility] [place] [address] PCP - General Family Medicine 09/14/21 Clarita Boggs APRN.CRATE BUILDER [address] [facility] [place] [address] Ems Driver Family [facility] 10/05/24 Virignia Garcia APRN.CRATE BUILDER [address] [facility] [place] [address] Ems Driver Family Medicine 10/05/24 Juan Miguel Yusuf MD [address] [place] [address] Hematology/Oncology 01/25/25 Oma Linton, MAGNUS [address] [place] [address] Specialty Sales Merchandising Specialist Hematology/Oncology 01/25/25 Ayaz Bazzi MD 1 [place], [place] [id number] General Surgery 02/04/25 Rosa Anguiano LISW [address] [place] [address] Press Tender Inc[employer]iary Grenade Hematology/Oncology 02/05/25 Radha Cagle heat treat puller International First Officer 02/15/25 Circulation Sales Representative Relationship Specialty Start Date End Date Henok Martinez MD [address] [facility] [place] [address] PCP - General Family Medicine 09/14/21 Clarita Boggs, WEIGHER AND CHARGER.CRATE BUILDER [address] [place] [place] [address] Ems Driver Family Medicine 10/05/24 Virginia Garcia, WEIGHER AND CHARGER.CRATE BUILDER [address] [facility] [place] [address] Ems Driver Family Medicine 10/05/24 Juan Miguel uYsuf MD [address] [place] [address] Hematology/Oncology 01/25/25 Oma Linton, MAGNUS [address] [place] [address] Specialty Sales Merchandising Specialist Hematology/Oncology 01/25/25 Ayaz Bazzi MD 1 [place] [address] General Surgery 02/04/25 Rosa Anguiano LISW [address] [place] [address] Press Tender Inc[employer] Grenade Hematology/Oncology 02/05/25 Circulation Sales Representative Relationship Specialty Start Date End Date Henok Martinez MD [address] [facility] [place] [address] PCP - General Family Medicine 09/14/21 Clarita Boggs APRN.CRATE BUILDER [address] [place] [place] [address] Ems Driver Family Medicine 10/05/24 Virginia Garcia WEIGHER AND CHARGER.CRATE BUILDER [address] [facility] [place] [address] Ems Driver Family Medicine 10/05/24 Juan Miguel Yusuf MD [address] [place] [address] Hematology/Oncology 01/25/25 Oma Linton RN [address] [place] [address] Specialty Sales Merchandising Specialist Hematology/Oncology 01/25/25 Ayaz Bazzi MD 1 [place] [address] General Surgery 02/04/25 Rosa Anguiano LISW [address] [facility] [place] [address] Press Tender [employer] Gren[employer] Hematology/Oncology 02/05/25 Circulation Sales Representative Relationship Specialty Start Date End Date Henok Martinez MD [address] [facility] [place] [address] PCP - General Family Medicine 09/14/21 Clarita Boggs, WEIGHER AND CHARGER.CRATE BUILDER [address] [facility] [place] [address] Ems Driver Family Medicine 10/05/24 Virginia Garcia WEIGHER AND CHARGER.CRATE BUILDER [address] [facility] [place] [address] Ems Driver Family Medicine 10/05/24 Juan Miguel Yusuf MD [address] [facility] [place] [address] Hematology/Oncology 01/25/25 Oma Linton, MAGNUS [address] [place] [address] Specialty Sales Merchandising Specialist Hematology/Oncology 01/25/25 Ayaz Bazzi MD 1 [place] [address] General Surgery 02/04/25 Rosa Anguiano LISW [address] [place] [address] Press Tender Incendiary Grenade Hematology/Oncology 02/05/25 Circulation Sales Representative Relationship Specialty Start Date End Date Henok Martinez MD [address] [facility] [place] [address] PCP - General Family Medicine 09/14/21 Clarita Boggs, WEIGHER AND CHARGER.CRATE BUILDER [address] [facility] [place] [address] Ems Driver Family Medicine 10/05/24 Virginia Garcia, WEIGHER AND CHARGER.CRATE BUILDER [address] [facility] [place] [address] Ems Driver Family Medicine 10/05/24 Juan Miguel Yusuf MD [address] [place] [address] Hematology/Oncology 01/25/25 Oma Linton, RN [address] [facility] [place] [address] Specialty Sales Merchandising Specialist Hematology/Oncology 01/25/25 Ayaz Bazzi MD 1 [place], [place] [id number] General Surgery 02/04/25 Rosa Anguiano LISW [address] [facility] [place] [address] Press Tender Incendiary Grenade Hematology/Oncology 02/05/25 Circulation Sales Representative Relationship Specialty Start Date End Date Henok Martinez MD [address] [facility] [place] [address] PCP - General Family Medicine 09/14/21 Clarita Boggs, WEIGHER AND CHARGER.CRATE BUILDER [address] [facility] [place] [address] [facility] 10/05/24 Virginia Garcia, WEIGHER AND CHARGER.CRATE BUILDER [address] [facility] [place] [address] [facility] Family Medicine 10/05/24 Juan Miguel Yusuf MD [address] [place] [address] Hematology/Oncology 01/25/25 Oma Linton RN [address] [place] [address] Specialty Sales Merchandising Specialist Hematology/Oncology 01/25/25 Ayaz Bazzi MD 1 [place] [address] General Surgery 02/04/25 Rosa Anguiano LISW [address] [place] [address] Press Tender Incendiary Grenade Hematology/Oncology 02/05/25 Lamar Stoner MD [address] [place] [address] Physician Radiation Oncology 04/08/25 Circulation Sales Representative Relationship Specialty Start Date End Date Henok Martinez MD [address] [facility] [place] [address] PCP - General Family Medicine 09/14/21 Clarita Boggs, WEIGHER AND CHARGER.CRATE BUILDER [address] [place] [address] Ems Driver Family Medicine 10/05/24 Virginia Garcia, WEIGHER AND CHARGER.CRATE BUILDER [address] [facility] [place] [address] Ems Driver Family Medicine 10/05/24 Juan Miguel Yusuf MD [address] [place] [address] Hematology/Oncology 01/25/25 Oma Linton RN [address] [place] [address] Specialty Sales Merchandising Specialist Hematology/Oncology 01/25/25 Ayaz Bazzi MD 1 [place] [address] General Surgery 02/04/25 Rosa Anguiano LISW [address] [place] [address] Press Tender Incendiary Grenade Hematology/Oncology 02/05/25 Circulation Sales Representative Relationship Specialty Start Date End Date Henok Martinez MD [address] [facility] [place] [address] PCP - General Family Medicine 09/14/21 Clarita Boggs APRN.CRATE BUILDER [address] [facility] [place] [address] Ems Driver Family [facility] 10/05/24 Virginia Garcia APRN.CRATE BUILDER [address] [facility] [place] [address] Ems Driver Family [facility] 10/05/24 Juan Miguel Yusuf MD [address] [place] [address] Hematology/Oncology 01/25/25 Oma Linton, RN [address] [place] [address] Specialty Sales Merchandising Specialist Hematology/Oncology 01/25/25 Ayaz Bazzi MD 1 [place] [address] General Surgery 02/04/25 Rosa Anguiano LISW [address] [place] [address] Press Tender Incendiary Grenade Hematology/Oncology 02/05/25 Lamar Stoner MD [address] [place] [address] Physician Radiation Oncology 04/08/25 Circulation Sales Representative Relationship Specialty Start Date End Date Henok Martinez MD [address] [facility] [place], [place] [id number] PCP - General Family Medicine 09/14/21 Clarita Boggs, WEIGHER AND CHARGER.CRATE BUILDER [address] [place] [address] Ems Driver Family Medicine 10/05/24 Virginia Garcia WEIGHER AND CHARGER.CRATE BUILDER [address] [facility] [place] [address] Ems Driver Family Medicine 10/05/24 Juan Miguel Yusuf MD [address] [place] [address] Hematology/Oncology 01/25/25 Oma Linton, MAGNUS [address] [place] [address] Specialty Sales Merchandising Specialist Hematology/Oncology 01/25/25 Ayaz Bazzi MD 1 [place] [address] General Surgery 02/04/25 Rosa Anguiano LISW [address] [place] [address] Press Tender Incendiary Grenade Hematology/Oncology 02/05/25 Lamar Stoner MD [address] [place] [address] Physician Radiation Oncology 04/08/25 Circulation Sales Representative Relationship Specialty Start Date End Date Henok Martinez MD [address] [place], [place] [address] PCP - General Family Medicine 09/14/21 Clarita Boggs APRN.CRATE BUILDER [address] [place] [address] Ems Driver Family Medicine 10/05/24 Virginia Garcia APRN.CRATE BUILDER [address] [place] [address] Ems Driver Family Medicine 10/05/24 Juan Miguel Yusuf MD [address] [place] [address] Hematology/Oncology 01/25/25 Oma Linton, MAGNUS [address] [place] [address] Specialty Sales Merchandising Specialist Hematology/Oncology 01/25/25 Ayaz Bazzi MD 1 [place] [address] General Surgery 02/04/25 Rosa Anguiano LISW [address] [place] [address] Press Tender Incendiary Grenade Hematology/Oncology 02/05/25 Lamar Stoner MD [address] [place] [address] Physician Radiation Oncology 04/08/25 Circulation Sales Representative Relationship Specialty Start Date End Date Henok Martinez MD [address] [place] [address] PCP - General Family Medicine 09/14/21 Clarita Boggs APRN.CRATE BUILDER [address] [place] [address] Ems Driver Family Medicine 10/05/24 Virginia Garcia WEIGHER AND CHARGER.CRATE BUILDER [address] [place] [address] Ems Driver Family Medicine 10/05/24 Juan Miguel Yusuf MD [address] [place] [address] Hematology/Oncology 01/25/25 Oma Linton, MAGNUS [address] [place] [address] Specialty Sales Merchandising Specialist Hematology/Oncology 01/25/25 Ayaz Bazzi MD 1 [place], [place] [id number] General Surgery 02/04/25 Rosa Anguiano LISW [address] [place] [address] Press Tender Incendiary Grenade Hematology/Oncology 02/05/25 Lamar Stoner MD [address] [place] [address] Physician Radiation Oncology 04/08/25 Circulation Sales Representative Relationship Specialty Start Date End Date Henok Martinez MD [address] [place] [address] PCP - General Family Medicine 09/14/21 Clarita Boggs, SHY.CRATE BUILDER [address] [place] [address] Ems Driver Family Medicine 10/05/24 Virginia Garcia, WEIGHER AND CHARGER.CRATE BUILDER [address] [place] [address] Ems Driver Family Medicine 10/05/24 Juan Miguel Yusuf MD [address] [place] [address] Hematology/Oncology 01/25/25 Oma Linton, MAGNUS [address] [place] [address] Specialty Sales Merchandising Specialist Hematology/Oncology 01/25/25 Ayaz Bazzi MD 1 [place] [address] General Surgery 02/04/25 Rosa Anguiano LISW [address] [place] [address] Press Tender Incendiary Grenade Hematology/Oncology 02/05/25 Lamar Stoner MD [address] [place] [address] Physician Radiation Oncology 04/08/25 Circulation Sales Representative Relationship Specialty Start Date End Date Henok Martinez MD [address] [place] [address] PCP - General Family Medicine 09/14/21 Clarita Boggs, WEIGHER AND CHARGER.CRATE BUILDER [address] [place] [address] Ems Driver Family Medicine 10/05/24 Virginia Garcia, WEIGHER AND CHARGER.CRATE BUILDER [address] [place] [address] Ems Driver Family Medicine 10/05/24 Juan Miguel Yusuf MD [address] [place] [address] Hematology/Oncology 01/25/25 Oma Linton RN [address] [facility] [place] [address] Specialty Sales Merchandising Specialist Hematology/Oncology 01/25/25 Ayaz Bazzi MD 1 [place], [place] [id number] General Surgery 02/04/25 Rosa Anguiano LISW [address] [place] [address] Press Tender Incendiary Grenade Hematology/Oncology 02/05/25 Lamar Stoner MD [address] [facility] [place] [address] Physician Radiation Oncology 04/08/25 Circulation Sales Representative Relationship Specialty Start Date End Date Henok Martinez MD [address] [facility] [place] [address] PCP - General Family Medicine 09/14/21 Clarita Boggs, WEIGHER AND CHARGER.CRATE BUILDER [address] [facility] [address] Ems Driver Family Medicine 10/05/24 Virginia Garcia, WEIGHER AND CHARGER.CRATE BUILDER [address] [facility] [place] [address] Ems Driver Family Medicine 10/05/24 Juan Miguel Yusuf MD [address] [place] [address] Hematology/Oncology 01/25/25 Oma Linton, MAGNUS [address] [facility] [address] Specialty Sales Merchandising Specialist Hematology/Oncology 01/25/25 Ayaz Bazzi MD 1 [place], [place] [id number] General Surgery 02/04/25 Rosa Anguiano LISW [address] [place] [address] Press Tender Incendiary Grenade Hematology/Oncology 02/05/25 Lamar Stoner MD [address] [place] [address] Physician Radiation Oncology 04/08/25 Circulation Sales Representative Relationship Specialty Start Date End Date Henok Martinez MD [address] [facility] [place] [address] PCP - General Family Medicine 09/14/21 Clarita Boggs APRN.CRATE BUILDER [address] [place] [address] Ems Driver Family Medicine 10/05/24 Virginia Garcia, WEIGHER AND CHARGER.CRATE BUILDER [address] [facility] [place] [address] Ems Driver Family Medicine 10/05/24 Juan Miguel Yusuf MD [address] [place] [address] Hematology/Oncology 01/25/25 Oma Linton, MAGNUS [address] [place] [address] Specialty Sales Merchandising Specialist Hematology/Oncology 01/25/25 Ayaz Bazzi MD 1 [place] [address] General Surgery 02/04/25 Rosa Anguiano LISW [address] [place] [address] Press Tender Incendiary Grenade Hematology/Oncology 02/05/25 Lamar Stoner MD [address] [place] [address] Physician Radiation Oncology 04/08/25 Team Status: Active [...] Attending Provider Active Start: May 31, 2025 Team Status: Inactive Member Role/Relationship Status Dates Dr. Henok Martinez MD Primary Care Provider Active Start: May 31, 2025 End: June 02, 2025 Dr. Yeyo Valentine DO Emergency Provider Active Start : May 31, 2025 End: June 02, 2025 Dr. Oniel Golden , Admit Provider Active Start: May 31, 2025 End: June 02, 2025 Dr. Oniel Golden DO Other Provider Active Start: May 31, 2025 End: June 02, 2025 Dr. Oniel Santana MD Attending Provider Active Start: May 31, 2025 End: June 02, 2025 Dr. Jacoby Dunlap , Other Provider Active Start: May 31, 2025 End: June 02, 2025 Dr. Oniel Salamanca DO Other Provider Active Sta rt: May 31, 2025 End: June 02, 2025 Dr. Caron Patrick MD Other Provider Active Start : May 31, 2025 End: June 02, 2025 Dr. Danielle Mariano MD Other Provider Active St art: May 31, 2025 End: June 02, 2025 Elle Sandoval , FOUNDER PRESIDENT AND CEO-C Other Provider Active Sta rt: May 31, 2025 End: June 02, 2025 Janet Patel NP, FOUNDER PRESIDENT AND CEO-C Other Provider Active Start: May 31, 2025 End: June 02, 2025 KAREN Bernstein Other Provider Active Start: A ug2024 End: June 02, 2025 Team Status: Active Member Role/Relationship Status Dates Dr. Henok Martinez MD Primary Care Provider Active Start: May 31, 2025 Dr. Yeyo Valentine DO Emergency Provider Active Start : May 31, 2025 Dr. Oniel Golden DO Admit Provider Active Start: May 31, 2025 Dr. Oniel Golden DO Other Provider Active Start: May 31, 2025 Dr. Jacoby Dunlap DO Other Provider Active Start: May 31, 2025 Dr. Mohit Brown DO Attending Provider Active Start: May 31, 2025 Team Status: Active Member Role/Relationship Status Dates Dr. Henok Martinez MD Primary Care Provider Active Start: June 01, 2025 Dr. Yeyo Valentine DO Emergency Provider Active Start : June 01, 2025 Dr. Oniel Golden DO Admit Provider Active Start: June 01, 2025 Dr. Oniel Golden DO Other Provider Active Start: June 01, 2025 Dr. Oniel Santana MD Attending Provider Active Start: June 01, 2025 Dr. Oniel Santana MD Other Provider Active Star t: June 01, 2025 Dr. Jacoby Dunlap DO Other Provider Active Start: June 01, 2025 Team Status: Active Member Role/Relationship Status Dates Dr. Henok Martinez MD Primary Care Provider Active Start: June 01, 2025 Dr. Mohit Brown DO Attending Provider Active Start: June 01, 2025 Team Status: Active Member Role/Relationship Status Dates Dr. Henok Martinez MD Primary Care Provider Active Start: June 02, 2025 Dr. Yeyo Valentine DO Emergency Provider Active Start : June 02, 2025 Dr. Oniel Golden DO Admit Provider Active Start: June 02, 2025 Dr. Oniel Golden DO Other Provider Active Start: June 02, 2025 Dr. Oniel Santana MD Attending Provider Active Start: June 02, 2025 Dr. Oniel Santana MD Other Provider Active Star t: June 02, 2025 Dr. Jacoby Dunlap DO Other Provider Active Start: June 02, 2025 Circulation Sales Representative Relationship Specialty Start Date End Date Henok Martinez MD [address] [place] [address] PCP - General Family Medicine 09/14/21 Clarita Boggs, SHY.CRATE BUILDER [address] [facility] [place] [address] Ems Driver Family Medicine 10/05/24 Virginia Garcia APRN.CRATE BUILDER [address] [place] [address] Ems Driver Family Medicine 10/05/24 Juan Miguel Yusfu MD [address] [place] [address] Hematology/Oncology 01/25/25 Oma Linton, MAGNUS [address] [place] [address] Specialty Sales Merchandising Specialist Hematology/Oncology 01/25/25 Ayaz Bazzi MD 1 [place] [address] General Surgery 02/04/25 Rosa Anguiano LISW [address] [place] [address] Press Tender Incendiary Grenade Hematology/Oncology 02/05/25 Lamar Stoner MD [address] [place] [address] Physician Radiation Oncology 04/08/25 Team Status: Inactive Member Role/Relationship Status Dates Dr. Henok Martinez MD Primary Care Provider Active Start: June 15, 2025 End: June 15, 2025 Dr. Henok Martinez MD Referring Provider Active Start: June 15, 2025 End: June 15, 2025 Dr. Zachary Sarabia MD Attending Provider Active S tart: June 15, 2025 End: June 15, 2025 Circulation Sales Representative Relationship Specialty Start Date End Date Henok Martinez MD [address] [facility] [place], [place] [address] PCP - General Family Medicine 09/14/21 Clarita Boggs, SHY.CRATE BUILDER [address] [place] [address] [facility] 10/05/24 Virginia Garcia APRN.CRATE BUILDER [address] [place] [address] [facility] 10/05/24 Juan Miguel Yusuf MD [address] [place] [address] Hematology/Oncology 01/25/25 Oma Linton, MAGNUS [address] [place] [address] Specialty Sales Merchandising Specialist Hematology/Oncology 01/25/25 Ayaz Bazzi MD 1 [place] [address] General Surgery 02/04/25 Rosa Anguiano LISW [address] [place] [address] Press Tender Incendiary Grenade Hematology/Oncology 02/05/25 Lamar Stoner MD [address] [place] [address] Physician Radiation Oncology 04/08/25 Team Status: Active Member Role/Relationship Status Dates Dr. Henok Martinez MD Primary care physician Active Team Status: Inactive Member Role/Relationship Status Dates Dr. Henok Martinez MD Primary care physician Active Start: May 31, 2025 End: June 02, 2025 Dr. Yeyo Valentine DO Emergency Department Physician Active Start: May 31, 2025 End: June 02, 2025 Dr. Oniel Golden DO Admitting physician Active Start: May 31, 2025 End: June 02, 2025 Dr. Oniel Golden DO Nurse Practitioner Active Start: May 31, 2025 End: June 02, 2025 Dr. Oniel Santana MD Attending physician Active Start: May 31, 2025 End: June 02, 2025 Dr. Jacoby Dunlap , DO Nurse Practitioner Active Start: May 31 End: June 02, 2025 Dr. Oniel Salamanca , DO Nurse Practitioner Active Start: May 31, 2025 End: June 02, 2025 Dr. Caron Patrick MD Nurse Practitioner Active S tart: May 31, 2025 End: June 02, 2025 Dr. Danielle Mariano MD Nurse Practitioner Active Start: May 31, 2025 End: June 02, 2025 Elle Sandoval FOUNDER PRESIDENT AND CEO-C Nurse Practitioner Active Start: May 31, 2025 End: June 02, 2025 Janet Patel NP, FOUNDER PRESIDENT AND CEO-C Nurse Practitioner Active Start: May 31, 2025 End: June 02, 2025 KAREN Bernstein Nurse Practitioner Active Star t: May 31, 2025 End: June 02, 2025 Team Status: Active Member Role/Relationship Status Dates Dr. Henok Martinez MD Primary care physician Active Start: May 31, 2025 Dr. Yeyo Valentine , DO Emergency Department Physician Active Start: May 31, 2025 Dr. Oniel Golden , DO Admitting physician Active Start: May 31, 2025 Dr. Oniel Golden , DO Referring Provider Active Start: May 31, 2025 Dr. Oniel Golden , Nurse Practitioner Active Start: May 31, 2025 Dr. Jacoby Dunlap , DO Nurse Practitioner Active Start: May 31 Dr. Mohit Brown , Attending physician Active Start: May 31, 2025 Team Status: Active Member Role/Relationship Status Dates Dr. Henok Martinez MD Primary care physician Active Start: June 01, 2025 Dr. Yeyo Valentine , DO Emergency Department Physician Active Start: June 01, 2025 Dr. Oniel Golden , DO Admitting physician Active Start: June 01, 2025 Dr. Oniel Golden , DO Nurse Practitioner Active Start: June 01, 2025 Dr. Oniel Santana MD Attending physician Active Start: June 01, 2025 Dr. Oniel Santana MD Nurse Practitioner Active Start: June 01, 2025 Dr. Jacoby Dunlap , DO Nurse Practitioner Active Start: June 01 Team Status: Active Member Role/Relationship Status Dates Dr. Henok Martinez MD Primary care physician Active Start: June 01, 2025 Dr. Mohit Brown DO Attending physician Active Start: June 01, 2025 Dr. Oniel Santana MD Referring Provider Active Start: June 01, 2025 Team Status: Active Member Role/Relationship Status Dates Dr. Henok Martinez MD Primary care physician Active Start: June 02, 2025 Dr. Yeyo Valentine DO Emergency Department Physician Active Start: June 02, 2025 Dr. Oniel Golden DO Admitting physician Active Start: June 02, 2025 Dr. Oniel Golden DO Nurse Practitioner Active Start: June 02, 2025 Dr. Oniel Santana MD Attending physician Active Start: June 02, 2025 Dr. Oniel Santana MD Nurse Practitioner Active Start: June 02, 2025 Dr. Jacoby Dunlap DO Nurse Practitioner Active Start: June 02 Team Status: Inactive Member Role/Relationship Status Dates Dr. Henok Martinez MD Primary care physician Active Start: June 15, 2025 End: June 15, 2025 Dr. Henok Martinez MD Referring Provider Active Start: June 15, 2025 End: June 15, 2025 Dr. Zachary Sarabia MD Attending physician Active Start: June 15, 2025 End: June 15, 2025 Team Status: Inactive Member Role/Relationship Status Dates Dr. Henok Martinez MD Primary care physician Active Start: August 03, 2025 End: August 03, 2025 Dr. Henok Martinez MD Referring Provider Active Start: August 03, 2025 End: August 03, 2025 Dr. Mohit Brown DO Attending physician Active Start: August 03, 2025 End: August 03, 2025 Goals (unrecognized section and content) Goals [...] section and content) DATE CREATED AUTHOR 02/17/2025 [facility] DATE CREATED AUTHOR AUTHOR'S ORGANIZ ATION 06/04/2025 [facility] DATE CREATED AUTHOR AUTHOR'S ORGANIZ ATION 08/17/2025 [facility] DATE CREATED AUTHOR AUTHOR'S ORGANYARELIS ATION 08/28/2025 [facility] FOR RECORDS PERTAINING TO PATIENTS WHO ARE [...] BE BASED ON THE PRIMARY CLINICAL RECORDS. [facility] [employer] [facility]. provides no warranty or guarantee of the accuracy or completeness of information in this document.
--- NOTE | 2025-10-10 11:40 | CT_ITS ---
PROCEDURE: SPINE CERVICAL WITHOUT CONTRAS 10/10/2025 REASON FOR EXAM: NECK PAIN TECHNIQUE: Procedure Code: CTSPC Modality: CT Procedure: SPINE CERVICAL WITHOUT CONTRAS Coronal and Sagittal reconstruction series were provided. One or more dose reduction techniques were used (e.g., Automated exposure control, adjustment of the mA and/or kV according to patient size, use of iterative reconstruction technique. COMPARISON: 06/25/2024. FINDINGS: Streak artifact limits evaluation. No acute fracture or subluxation. Degenerative changes including disc space narrowing of various degrees, marginal osteophytosis, and facet arthrosis, most pronounced at C5-6 and C6-7. Subsequently, there is mild narrowing of the canal at C5-6 and C6-7, and moderate neural foraminal narrowing bilaterally at C5-6 and on the right at C6-7. The prevertebral soft tissues appear unremarkable. Of note, mass density measuring a proximally 14 x 12 mm is noted in the right parapharyngeal fat pad, and contains a couple rounded calcifications. This appears to have been present on the previous study, however incompletely imaged. CT/Spine Cervical without Contras IMPRESSION: No CT evidence of acute traumatic injury to the cervical spine. Moderate cervical spondylosis. Mass-like density measuring 14 mm in the right parapharyngeal fat pad, incomple tely imaged but present on the previous study. 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 However, further evaluation i s limited due to lack of IV contrast. Consider further evaluation with a CT of the neck with IV contrast. Reading Location: [id number]
[2025-10-10] MEDS: Orphenadrine 100 MG Tablet PO (11:52)
[2025-10-10] MEDS: Lidocaine 5% Patch 1 PATCH TOPICAL (11:53)
[2025-10-10 13:07] VITALS: BP 155/67; PULSE 80; RESP 16; O2SAT 97
[2025-10-10 13:50] VITALS: BP 155/67; PULSE 80; RESP 16; TEMP 36.6; O2SAT 97
== END 2025-10-10 14:06 | disposition home or self-care (01) ==
PROVIDERS: Emergency Provider Emergency Medicine; PCP Family Medicine; Visit Provider Emergency Medicine
DX: M54.2 Cervicalgia (principal); C25.9 Malignant 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, unspecified; E11.9 Type 2 diabetes mellitus without complications; R22.1 Localized swelling, mass and lump, neck; E78.5 Hyperlipidemia, unspecified; I10 Essential (primary) hypertension; Z87.891 Personal history of nicotine dependence; K21.9 Gastro-esophageal reflux disease without esophagitis; J45.909 Unspecified asthma, uncomplicated
CPT/HCPCS: 72125; 82962; 99284